=== PATIENT | female | born 1995 | race Caucasian/White ===

== ENCOUNTER 2023-05-21 22:49 | Emergency (ER) | payer OTHER, SELFPAY ==
[2023-05-21 23:08] VITALS: BP 129/92; PULSE 83; RESP 18; TEMP 37.3; O2SAT 97; BMI 29.5
--- NOTE | 2023-05-21 23:22 | ED.ABDPAIN1 ---
HPI - Abdominal Pain General Chief Complaint: Abdominal Pain Stated Complaint: Abdominal Pain Time Seen by Provider: 05/21/23 23:22 Source: patient Mode of arrival: walk-in History of Present Illness HPI narrative: Patient presents to emergency department complaining of abdominal pain. Patient states she has cramping and pain which she relates to a Crohn's flareup. She is 16 weeks gestation. She denies any contractions, vaginal bleeding, discharge. She denies any flank pain, hematuria, dysuria. She states she has nausea and vomiting. She has vomited 2 times in the last 24 hours. She has an ileostomy states that she feels like it has slowed down but she also has rectal output. She denies any melena, hematochezia. She states that she's not been able to eat much. She is taking Tylenol at home without any relief. She takes Imuran. 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 Patient denies any chest pain or shortness of breath. Denies any fall or trauma. She denies any fever, chills, cough or upper respiratory infection symptoms. Related Data Home Medications Medication Instructions Recorded Confirmed azathioprine 100 mg tablet 100 mg PO DAILY 05/21/23 05/21/23 Previous Rx's Medication Instructions Recorded hydrocodone 5 mg-acetaminophen 325 1 tab PO Q6H PRN pain 3 days #10 05/22/23 mg tablet tabs ondansetron HCl 4 mg tablet 4 mg PO Q6H PRN nausea and 05/22/23 vomiting #10 tabs prednisone 20 mg tablet 20 mg PO BID 3 days #6 tabs 05/22/23 Allergies Allergy/AdvReac Type Severity Reaction Status Date / Time No Known Drug Allergies Allergy Verified 05/21/23 23:12 Review of Systems ROS Status of ROS 10 or more systems reviewed and unremarkable except as noted in history and below PFS PFS Social History Smoking status: Never smoker Exam Narrative Exam Narrative: Nurses notes and vital signs reviewed and patient is not hypoxic. General: Nontoxic, Well-appearing and in no apparent distress. Skin: Warm, dry, no pallor noted. No Rash Head: Normocephalic, atraumatic. Neck: Supple, non-tender. Eye: Pupils are equal, round and EOMI. No scleral icterus. Ears, Nose, Mouth, and Throat: TM clear, no posterior oropharynx erythema or nasal mucosal hypertrophy, uvula is mid-line Oral mucosa is moist Cardiovascular: Regular Rate and Rhythm without murmur, gallop or rub. Respiratory: No accessory muscle use or respiratory distress. Lungs are clear to auscultation, no wheezing, rales or rhonchi Chest Wall: no tenderness Back: No midline thoracic or lumbar vertebral tenderness. No CVA tenderness Musculoskeletal: normal ROM, no calf or popliteal tenderness, no lower extremity edema/swelling GI: Abdomen is soft, non-distended. Normal bowel sounds. No masses appreciated.Soft stool noted in the right ileostomy, no hematochezia. mild luq tenderness to palpation. No rebound, guarding, or rigidity noted. Neurological: A&O x4. No cranial nerve dysfunction observed. No truncal ataxia. Moves all extremities. Sensation intact. Psychiatric: Cooperative and interactive. Normal mood and affect. Constitutional Vital Signs, click to edit/add: Last Vital Signs Temp 99.2 F 05/21/23 23:08 Pulse 83 05/21/23 23:08 Resp 18 05/21/23 23:08 BP 129/92 H 05/21/23 23:08 Pulse Ox 97 05/21/23 23:08 O2 Del Method Room Air 05/21/23 23:08 Course Vital Signs Vital signs: Vital Signs Temperature 99.2 F 05/21/23 23:08 Pulse Rate 83 05/21/23 23:08 Respiratory Rate 18 05/21/23 23:08 Blood Pressure 129/92 H 05/21/23 23:08 Pulse Oximetry 97 05/21/23 23:08 Oxygen Delivery Method Room Air 05/21/23 23:08 Temperature 99.2 F 05/21/23 23:08 Pulse Rate 83 05/21/23 23:08 Respiratory Rate 18 05/21/23 23:08 Blood Pressure 129/92 H 05/21/23 23:08 Pulse Oximetry 97 05/21/23 23:08 Oxygen Delivery Method Room Air 05/21/23 23:08 MDM - Abdominal Pain MDM Narrative Medical decision making narrative: She was given 1 L normal saline, morphine and Zofran. Labs studies were done.Patient was given 40 mg of prednisone is still having a lot of pain. Patient is nontoxic, she will be discharged home with a course of steroids and analgesics. Discussed with the patient the use of these medications during and she understands. Patient's abdomen is benign and nonsurgical. There is no signs of obstruction she is having stool output. At this time the patient is without objective evidence of an acute process requiring hospitalization or inpatient management. The patient has remained hemodynamically stable. No additional indication for emergent studies at this time. I answered all questions. Discussed discharge instructions including standard anticipatory guidance and what should prompt a return to the emergency department, including if they get worse are not getting better or develops any new or concerning symptoms. I've given them specific time frame in which to follow-up, and who to follow-up with. The patient demonstrates understanding. Patient is nontoxic and stable for discharge with outpatient follow-up. This note was created with the assistance of a speech recognition program. Although the intention is to generate documents that actually reflects the content of the visit, no guarantees can be provided that every mistake has been identified and corrected by editing. Differential Diagnosis Differential diagnosis: Likely abdominal pain, constipation and small bowel obstruction Lab Data Attestation: I reviewed the patient's lab results. Labs: Lab Results 05/21/23 05/21/23 Range/Units 23:16 23:31 WBC 5.0 (4.0-11.0) 10^3/uL RBC 4.43 (4.20-5.40) 10^6/uL Hgb 11.7 L (12.0-16.0) g/dL Hct 36.3 (36.0-48.0) % MCV 81.9 (81.0-99.0) fL MCH 26.4 L (26.7-34.0) pg MCHC 32.2 (29.9-35.2) g/dL RDW 15.6 H (11.0-15.0) % Plt Count 253 (150-450) 10^3/uL MPV 10.1 (9.5-13.5) fL Neut % (Auto) 67.5 (43.0-75.0) % Lymph % (Auto) 22.5 (20.5-60.0) % [place] % (Auto) 7.2 (1.7-12.0) % Eos % (Auto) 2.0 (0.9-7.0) % Baso % (Auto) 0.6 (0.2-2.0) % Neut # (Auto) 3.4 (1.4-6.5) 10^3/uL Lymph # (Auto) 1.1 L (1.2-3.8) 10^3/uL [place] # (Auto) 0.4 (0.3-0.8) 10^3/uL Eos # (Auto) 0.1 (0.0-0.7) 10^3/uL Baso # (Auto) 0.0 (0.0-0.1) 10^3/uL Abs Immat Gran (auto) 0.01 (0.00-0.03) 10^3/uL Imm/Tot Granulo (auto) 0.2 (0.0-0.5) % Sodium 137 (136-145) mmol/L Potassium 3.7 (3.5-5.1) mmol/L Chloride 105 (98-107) mmol/L Carbon Dioxide 22.3 (21.0-32.0) mmol/L Anion Gap 13.4 BUN 8.0 (7.0-18.0) mg/dL Creatinine 0.77 (0.55-1.02) mg/dL Est GFR ( Amer) >60 (>=60) Est GFR (Non-Af Amer) >60 (>=60) BUN/Creatinine Ratio 10.4 Glucose 90 (74-106) mg/dL Calcium 8.6 (8.5-10.1) mg/dL Total Bilirubin 0.3 (0.2-1.0) mg/dL AST 13 L (15-37) U/L ALT 21 (14-59) U/L Alkaline Phosphatase 80 (46-116) U/L Total Protein 8.3 H (6.4-8.2) g/dL Albumin 3.2 L (3.4-5.0) g/dL Globulin 5.1 g/dL Albumin/Globulin Ratio 0.6 Lipase 245.0 (73.0-393.0) U/L Urine Color Dk. yellow (YELLOW) Urine Clarity Clear (CLEAR) Urine pH 6.0 (5.0-9.0) Ur Specific [place] >=1.030 A (1.005-1.025) Urine Protein 30 A (NEG/TRACE) mg/dL Urine Glucose (UA) Negative (NEGATIVE) mg/dL Urine Ketones 15 A (NEGATIVE) mg/dL Urine Occult Blood Negative (NEGATIVE) Urine Nitrite Negative (NEGATIVE) Urine Bilirubin Small A (NEGATIVE) Urine Urobilinogen 0.2 (0.2-1.0) EU/dL Ur Leukocyte Esterase Negative (NEGATIVE) Urine RBC 2-5 A (0-2) #/HPF Urine WBC 5-10 A (NONE SEEN) #/HPF Ur Squamous Epith Cells Many A (NONE/RARE) #/LPF Urine Crystals None seen (None Seen) #/HPF Urine Bacteria Small A (NONE SEEN) #/HPF Urine Casts None seen (NONE SEEN) #/LPF Urine Mucus Small A (NONE SEEN) Ur Culture Indicated? Yes Discharge Plan Discharge Chief Complaint: Abdominal Pain Clinical Impression: Exacerbation of Crohn's disease, Dehydration Patient Disposition: Home, Self-Care Time of Disposition Decision: :27 Condition: Good Mode of Transportation: Private Vehicle Prescriptions / Home Meds: New prednisone 20 mg tablet 20 mg PO BID 3 Days Qty: 6 0RF hydrocodone-acetaminophen 5-325 mg tablet 1 tab PO Q6H PRN (Reason: pain) 3 Days Qty: 10 0RF ondansetron HCl 4 mg tablet 4 mg PO Q6H PRN (Reason: nausea and vomiting) Qty: 10 0RF No Action azathioprine 100 mg tablet 100 mg PO DAILY Instructions: Crohn Disease (ED) Stand Alone Forms: Portal Instructions Referrals: NABOR WAHL APRN [Physician] - 1 week
[2023-05-21] MEDS: 0.9 % SODIUM CHLORIDE 1,000 ML 999 ML IV (23:29)
[2023-05-21 23:38] LABS: Bilirubin Urine SMALL (NEGATIVE); Blood Urine NEGATIVE (NEGATIVE); Clarity Urine CLEAR (CLEAR); Color Urine DK. YELLOW (YELLOW); Glucose Urine UA NEGATIVE (NEGATIVE); Ketones Urine 15 mg/dL (NEGATIVE); Leukocyte Esterase Urine NEGATIVE (NEGATIVE); Nitrite Urine NEGATIVE (NEGATIVE); Protein Urine 30 mg/dL (NEG/TRACE); Specific Gravity Urine >=1.030 (1.005-1.025); Urobilinogen Urine 0.2 EU/dL (0.2-1.0)
[2023-05-21] MEDS: ONDANSETRON PF 4 MG/2 ML VIAL IV (23:41)
[2023-05-21] MEDS: MORPHINE SULFATE 4 MG/ML VIAL IV (23:41)
[2023-05-21 23:42] LABS: Urine Microscopic Indicated YES
[2023-05-21 23:43] LABS: Basophils Percent Auto 0.6 % (0.2-2.0); Eosinophils Absolute Auto 0.1 10^3/uL (0.0-0.7); Hematocrit 36.3 % (36.0-48.0); Hemoglobin 11.7 g/dL (12.0-16.0); Immature Granulocytes Abs Auto 0.01 10^3/uL (0.00-0.03); Immature Granulocytes Pct Auto 0.2 % (0.0-0.5); Lymphocytes Absolute Auto 1.1 10^3/uL (1.2-3.8); Lymphocytes Percent Auto 22.5 % (20.5-60.0); Mean Corpuscular HGB Conc 32.2 g/dL (29.9-35.2); Mean Corpuscular Hemoglobin 26.4 pg (26.7-34.0); Mean Corpuscular Volume 81.9 fL (81.0-99.0); Mean Platelet Volume 10.1 fL (9.5-13.5); Monocytes Absolute Auto 0.4 10^3/uL (0.3-0.8); Monocytes Percent Auto 7.2 % (1.7-12.0); Neutrophils Absolute Auto 3.4 10^3/uL (1.4-6.5); Neutrophils Percent Auto 67.5 % (43.0-75.0); Platelet Count 253 10^3/uL (150-450); Red Blood Count 4.43 10^6/uL (4.20-5.40); Red Cell Distribution Width 15.6 % (11.0-15.0)
[2023-05-21 23:50] LABS: Bacteria Urine SMALL #/HPF (NONE SEEN); Mucus Urine SMALL (NONE SEEN); Squamous Epithelial Cell Urine MANY #/LPF (NONE/RARE)
[2023-05-21 23:51] LABS: Cast Seen? NONE SEEN #/LPF (NONE SEEN); Crystals Seen? None Seen #/HPF (None Seen); Urine Culture Indicated YES
[2023-05-21 23:57] LABS: Alanine Aminotransferase 21 U/L (14-59); Albumin Globulin Ratio 0.6; Albumin Level 3.2 g/dL (3.4-5.0); Alkaline Phosphatase 80 U/L (46-116); Anion Gap 13.4; Aspartate Amino Transferase 13 U/L (15-37); BUN Creatinine Ratio 10.4; Bilirubin Total 0.3 mg/dL (0.2-1.0); Calcium 8.6 mg/dL (8.5-10.1); Carbon Dioxide 22.3 mmol/L (21.0-32.0); Chloride 105 mmol/L (98-107); Estimated GFR (African America >60 (>=60); Estimated GFR (Non-African Ame >60 (>=60); Globulin 5.1 g/dL; Glucose 90 mg/dL (74-106); Potassium 3.7 mmol/L (3.5-5.1); Sodium 137 mmol/L (136-145); Total Protein 8.3 g/dL (6.4-8.2)
[2023-05-22] MEDS: 0.9 % SODIUM CHLORIDE 1,000 ML 1000 ML IV (00:38)
[2023-05-22] MEDS: PREDNISONE 20 MG TABLET 40 MG PO (01:00)
[2023-05-22] MEDS: MORPHINE SULFATE 4 MG/ML VIAL IV (01:01)
[2023-05-22 01:44] VITALS: BP 132/74; PULSE 87; RESP 16; O2SAT 99
== END 2023-05-22 01:45 | disposition home or self-care (01) ==
PROVIDERS: Emergency Provider Emergency Medicine
DX: O99.612 Diseases of the digestive system complicating pregnancy, second trimester (principal); K50.90 Crohn's disease, unspecified, without complications; O26.892 Other specified pregnancy related conditions, second trimester; E86.0 Dehydration; Z3A.16 16 weeks gestation of pregnancy; Z93.2 Ileostomy status; Z79.899 Other long term (current) drug therapy
CPT/HCPCS: 36415; 80053; 81001; 83690; 85025; 87086; 96374; 96375; 96376; 99285

== ENCOUNTER 2024-03-26 12:55 | Emergency (ER) | payer OTHER, SELFPAY ==
[2024-03-26 12:59] VITALS: BP 120/90; PULSE 97; TEMP 36.6; O2SAT 98; BMI 28.1
--- NOTE | 2024-03-26 13:16 | ED_ITS ---
HPI HPI - General Adult General Chief complaint: Abdominal Pain Stated complaint: abd pain/palpitaions Time Seen by Provider: 03/26/24 13:09 Source: patient Mode of arrival: walk-in History of Present Illness HPI narrative: Patient is a 28-year-old female with a history of Crohn's, status post ileostomy who presents to the ER for increasing pain over the last 2 days. She sees a [facility] GI specialist since she required the ileostomy. She receives Entyvio infusions and takes daily prednisone. She states since she had her son several months ago, she has had an increase in pain with intermittent decreased output from the ileostomy. She is not concerned for , she is not currently breast-feeding. She has had no fevers or vomiting but reports nausea. She has left lower quadrant abdominal pain. No urinary symptoms. No medications taken prior to arrival for symptoms. She states that she was seen at [facility] 2 weeks ago for the same symptoms, she had CT scanning done at that time but states that the doctor did not give her any answers . She states she feels she may be dehydrated as when she stands up she feels her heart race Related Data Previous Rx's ?Medication ?Instructions ?Recorded ondansetron HCl 4 mg tablet 4 mg PO Q6H PRN nausea and 05/22/23 vomiting #10 tabs prednisone 20 mg tablet 20 mg PO BID 3 days #6 tabs 05/22/23 hyoscyamine sulfate 0.125 mg 0.125 mg PO Q6H PRN abdominal pain 03/26/24 tablet (Levsin) #12 tabs ondansetron 4 mg disintegrating 4 mg PO Q6H PRN nausea and 03/26/24 tablet vomiting #12 tabs oxycodone-acetaminophen 5 mg-325 1 tab PO Q6H PRN pain 4 days #15 03/26/24 mg tablet (Percocet) tabs prednisone 20 mg tablet 60 mg (3 x 20 mg) PO DAILY 3 days 03/26/24 #9 tabs Allergies Allergy/AdvReac Type Severity Reaction Status Date / Time No Known Drug Allergies Allergy Verified 05/21/23 23:12 Opioid HPI Opioid Management Most Recent Opioid Data: Last Pain Scale 5 03/26/24 14:45 Last MAR Pain Assessment 03/26/24 13:33 Review of Systems ROS Constitutional Denies: fever or chills Ears, nose, mouth, and throat Denies: throat pain or nasal congestion Respiratory Denies: shortness of breath Gastrointestinal Reports: abdominal pain and nausea; Denies: vomiting or diarrhea Integumentary/Breast Denies: rash Hematologic/Lymphatic Denies: easy bruising or easy bleeding Allergic/Immunologic Denies: hives [facility] Social History Smoking status: Never smoker Exam Narrative Exam Narrative: Gen.: Awake, alert, in no distress Head: Normocephalic, atraumatic ENT: Moist mucous membranes Respiratory: No respiratory distress, lungs clear bilaterally Cardio: Regular rate and rhythm Gastrointestinal: Abdomen is soft, nondistended and Diffusely tender to palpation in the left lower quadrant and left mid abdomen. Ileostomy noted to the left mid abdomen with brown output in the bag, no visible blood noted. Extremities: Moves extremities equally Psych: Normal mood and affect Neuro: No focal neuro deficit Skin: Warm, dry, intact Constitutional Vital Signs, click to edit/add: Last Vital Signs Temp 97.9 F 03/26/24 12:59 Pulse 73 03/26/24 14:45 Resp 14 03/26/24 14:45 BP 97/76 03/26/24 14:45 Pulse Ox 97 03/26/24 14:45 O2 Del Method Room Air 03/26/24 14:45 Course Vital Signs Vital signs: Vital Signs Temperature 97.9 F 03/26/24 12:59 Pulse Rate 97 H 03/26/24 12:59 Respiratory Rate 16 03/26/24 12:59 Blood Pressure 120/90 03/26/24 12:59 Pulse Oximetry 98 03/26/24 12:59 Oxygen Delivery Method Room Air 03/26/24 12:59 Temperature 97.9 F 03/26/24 12:59 Pulse Rate 73 03/26/24 14:45 Respiratory Rate 14 03/26/24 14:45 Blood Pressure 97/76 03/26/24 14:45 Pulse Oximetry 97 03/26/24 14:45 Oxygen Delivery Method Room Air 03/26/24 14:45 Medical Decision Making MDM Narrative Medical decision making narrative: CT scan was [facility] from [facility] that was performed on 03/08/2024. CT report reviewed showing that the patient had trace pleural effusion and minimally enlarging right lower quadrant ascites otherwise no significant change from 11/24/2023. Patient has an upcoming appointment with her GI specialist. Pain is controlled with Dilaudid, Zofran and she was given IV fluids in the ER. Lab studies are unremarkable although inflammatory markers are elevated consistent with Crohn's disease. She is resting comfortably, abdomen is soft and benign on reevaluation. She is comfortable with discharge home, she will be placed on pain medication, prednisone burst, Levsin, Zofran. Follow-up with GI specialist and return to the ER if symptoms change or worsen. SUPERVISED APC VISIT, PHYSICIAN ATTESTATION: Based on the medical record the care appears appropriate. ? Medical Records Medical records reviewed: Yes I reviewed the patient's medical records Lab Data Lab results reviewed: Yes I reviewed the patient's lab results Labs: Lab Results 03/26/24 03/26/24 Range/Units 13:10 13:32 WBC 5.4 (4.0-11.0) 10^3/uL RBC 4.75 (4.20-5.40) 10^6/uL Hgb 12.8 (12.0-16.0) g/dL Hct 41.1 (36.0-48.0) % MCV 86.5 (81.0-99.0) fL MCH 26.9 (26.7-34.0) pg MCHC 31.1 (29.9-35.2) g/dL RDW 15.7 H (11.0-15.0) % Plt Count 320 (150-450) 10^3/uL MPV 9.7 (9.5-13.5) fL Neut % (Auto) 68.9 (43.0-75.0) % Lymph % (Auto) 18.2 L (20.5-60.0) % [place] % (Auto) 10.8 (1.7-12.0) % Eos % (Auto) 1.7 (0.9-7.0) % Baso % (Auto) 0.2 (0.2-2.0) % Neut # (Auto) 3.7 (1.4-6.5) 10^3/uL Lymph # (Auto) 1.0 L (1.2-3.8) 10^3/uL [place] # (Auto) 0.6 (0.3-0.8) 10^3/uL Eos # (Auto) 0.1 (0.0-0.7) 10^3/uL Baso # (Auto) 0.0 (0.0-0.1) 10^3/uL Abs Immat Gran (auto) 0.01 (0.00-0.03) 10^3/uL Imm/Tot Granulo (auto) 0.2 (0.0-0.5) % ESR >130 H (<=20) mm/hr Sodium 141 (136-145) mmol/L Potassium 3.5 (3.5-5.1) mmol/L Chloride 101 (98-107) mmol/L Carbon Dioxide 30.1 (21.0-32.0) mmol/L Anion Gap 13.4 BUN 12.0 (7.0-18.0) mg/dL Creatinine 0.99 (0.55-1.02) mg/dL Est GFR ( Amer) >60 (>=60) Est GFR (Non-Af Amer) >60 (>=60) BUN/Creatinine Ratio 12.1 Glucose 97 (74-106) mg/dL Lactate 1.6 (0.4-2.0) mmol/L Calcium 9.2 (8.5-10.1) mg/dL Total Bilirubin 0.3 (0.2-1.0) mg/dL AST 11 L (15-37) U/L ALT 23 (14-59) U/L Alkaline Phosphatase 113 (46-116) U/L C-Reactive Protein 6.14 H (<=0.50) mg/dL Total Protein 8.1 (6.4-8.2) g/dL Albumin 3.2 L (3.4-5.0) g/dL Globulin 4.9 g/dL Albumin/Globulin Ratio 0.7 Lipase 49.0 (16.0-77.0) U/L Serum HCG, Qual Negative (NEGATIVE) Discharge Plan Discharge Stand Alone Forms: Portal Instructions Chief Complaint: Abdominal Pain Clinical Impression: Exacerbation of Crohn's disease, Abdominal pain Patient Disposition: Home, Self-Care Time of Disposition Decision: 14:52 Condition: Good Prescriptions / Home Meds: New oxycodone-acetaminophen [Percocet] 5-325 mg tablet 1 tab PO Q6H PRN (Reason: pain) 4 Days Qty: 15 0RF Rx Instructions: DX: R10.9 hyoscyamine sulfate [Levsin] 0.125 mg tablet 0.125 mg PO Q6H PRN (Reason: abdominal pain) Qty: 12 0RF ondansetron 4 mg tablet,disintegrating 4 mg PO Q6H PRN (Reason: nausea and vomiting) Qty: 12 0RF prednisone 20 mg tablet 60 mg PO DAILY 3 Days Qty: 9 0RF No Action prednisone 20 mg tablet 20 mg PO BID 3 Days Qty: 6 0RF ondansetron HCl 4 mg tablet 4 mg PO Q6H PRN (Reason: nausea and vomiting) Qty: 10 0RF Print Language: Ethiopian Instructions: Crohn Disease (ED), Abdominal Pain (ED) Referrals: Physician,Non-Staff, MD [Primary Care Provider] - 1 week
[2024-03-26 13:22] LABS: Basophils Percent Auto 0.2 % (0.2-2.0); Eosinophils Absolute Auto 0.1 10^3/uL (0.0-0.7); Eosinophils Percent Auto 1.7 % (0.9-7.0); Hematocrit 41.1 % (36.0-48.0); Hemoglobin 12.8 g/dL (12.0-16.0); Immature Granulocytes Abs Auto 0.01 10^3/uL (0.00-0.03); Immature Granulocytes Pct Auto 0.2 % (0.0-0.5); Lymphocytes Percent Auto 18.2 % (20.5-60.0); Mean Corpuscular HGB Conc 31.1 g/dL (29.9-35.2); Mean Corpuscular Hemoglobin 26.9 pg (26.7-34.0); Mean Corpuscular Volume 86.5 fL (81.0-99.0); Mean Platelet Volume 9.7 fL (9.5-13.5); Monocytes Absolute Auto 0.6 10^3/uL (0.3-0.8); Monocytes Percent Auto 10.8 % (1.7-12.0); Neutrophils Absolute Auto 3.7 10^3/uL (1.4-6.5); Neutrophils Percent Auto 68.9 % (43.0-75.0); Platelet Count 320 10^3/uL (150-450); Red Blood Count 4.75 10^6/uL (4.20-5.40); Red Cell Distribution Width 15.7 % (11.0-15.0); White Blood Count 5.4 10^3/uL (4.0-11.0)
[2024-03-26] MEDS: 0.9 % SODIUM CHLORIDE 1,000 ML 999 ML IV (13:30)
[2024-03-26] MEDS: ONDANSETRON PF 4 MG/2 ML VIAL IV (13:32)
[2024-03-26] MEDS: HYOSCYAMINE SULFATE 0.125 MG TAB.SUBL SL (13:33)
[2024-03-26] MEDS: HYDROMORPHONE HCL 1 MG/ML CARTRIDGE IVP (13:33)
[2024-03-26 13:55] LABS: Alanine Aminotransferase 23 U/L (14-59); Albumin Globulin Ratio 0.7; Albumin Level 3.2 g/dL (3.4-5.0); Alkaline Phosphatase 113 U/L (46-116); Anion Gap 13.4; Aspartate Amino Transferase 11 U/L (15-37); BUN Creatinine Ratio 12.1; Bilirubin Total 0.3 mg/dL (0.2-1.0); Calcium 9.2 mg/dL (8.5-10.1); Carbon Dioxide 30.1 mmol/L (21.0-32.0); Chloride 101 mmol/L (98-107); Estimated GFR (African America >60 (>=60); Estimated GFR (Non-African Ame >60 (>=60); Globulin 4.9 g/dL; Glucose 97 mg/dL (74-106); Potassium 3.5 mmol/L (3.5-5.1); Sodium 141 mmol/L (136-145); Total Protein 8.1 g/dL (6.4-8.2)
[2024-03-26 13:56] LABS: HCG Qualitative NEGATIVE (NEGATIVE); Internal Control Within Normal Limits
[2024-03-26 13:57] LABS: Lactate/Lactic Acid 1.6 mmol/L (0.4-2.0)
[2024-03-26 14:17] LABS: C Reactive Protein 6.14 mg/dL (<=0.50)
[2024-03-26 14:28] LABS: Erythrocyte Sedimentation Rate >130 mm/hr (<=20)
[2024-03-26 14:45] VITALS: BP 97/76; PULSE 73; O2SAT 97
[2024-03-26 15:05] VITALS: BP 97/76; PULSE 70; O2SAT 98
== END 2024-03-26 15:07 | disposition home or self-care (01) ==
PROVIDERS: Physician Assistant; Emergency Provider Emergency Medicine Emergency Medical Services
DX: R10.9 Unspecified abdominal pain (principal); K50.90 Crohn's disease, unspecified, without complications; Z93.2 Ileostomy status
CPT/HCPCS: 36415; 80053; 83605; 83690; 84703; 85025; 85652; 86140; 96374; 96375; 99285; J1170; J2405

== ENCOUNTER 2024-05-12 12:35 | Emergency (ER) | payer OTHER, SELFPAY ==
[2024-05-12 12:39] VITALS: BP 114/86; PULSE 87; TEMP 36.8; O2SAT 99; BMI 29.5
--- NOTE | 2024-05-12 13:06 | CT_ITS ---
The [address] [address] Patient Name: DELL MARTÍNEZ MRN: [id number] date: 1995 Sex: F Assigned Patient Location: ER Current Patient Location: Accession/Order Number: [id number] Exam Date: 05/12/2024 14:15 Report Date: 05/12/2024 15:14 At the request of: ANNA WESTFALL Procedure: CT abdomen pelvis w con EXAM: CT scan of the abdomen and pelvis using 100 mL of IV iodinated contrast. Dose reduction technique used: Automated exposure control and/or adjustment of the mA and/or kV according to patient size and/or use of iterative reconstruction technique. REASON FOR EXAM: pain, loose stools COMPARISON: CT scan dated 12/24/2022 FINDINGS: Loculated perianal fluid collection extending into the right ischiorectal fat and perianal fat along the subcutaneous gluteal cleft, this measures approximately 4.6 x 2.5 x 0.8 cm in maximal dimensions. Adjacent to this is a perianal high attenuation foreign body, possibly a seton. Defect through the lowest part of the rectum on the right posterior wall at approximately the 7-8 o'clock position. Diffuse colonic wall thickening. Wall thickening of the distal ileum. Right lower abdominal ileostomy. Small splenic cyst or hemangioma. Normal appendix. No free fluid in the abdomen or pelvis. No free intraperitoneal air. No dilated loops of small bowel or colon. No hydronephrosis or obstructing renal or ureteral calculi. Liver, pancreas, spleen, bilateral kidneys, and bilateral adrenal glands are otherwise unremarkable. No lymphadenopathy in the abdomen or pelvis. Remainder unremarkable. CT/CT abdomen pelvis w con IMPRESSION: 1. Findings compatible with enterocolitis in a pattern compatible with Crohn's enterocolitis. 2. 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 Electronically authenticated by: LAURA GEE Date: 05/12/2024 15:14
--- NOTE | 2024-05-12 13:08 | ED.ABDPAIN1 ---
HPI - Abdominal Pain General Chief Complaint: Abdominal Pain Stated Complaint: ABDOMINAL PAIN Time Seen by Provider: 05/12/24 12:55 Source: patient Mode of arrival: Wheelchair Limitations: no limitations History of Present Illness HPI narrative: 28 year old female presents to the ED for abd pain, loose stools. Onset was a few days ago. She has hx crohn's disease. Reports loose stools through her rectum and ileostomy. Also states she had a in Oct, 2023. She noticed in March that areas of her incision had become open; states it is getting worse. Denies fever, chills. Reports dizziness, feeling dehydrated. Denies emesis, urinary sx. Denies chance of . Related Data Previous Rx's ?Medication ?Instructions ?Recorded ondansetron HCl 4 mg tablet 4 mg PO Q6H PRN nausea and 05/22/23 vomiting #10 tabs prednisone 20 mg tablet 20 mg PO BID 3 days #6 tabs 05/22/23 hyoscyamine sulfate 0.125 mg 0.125 mg PO Q6H PRN abdominal pain 03/26/24 tablet (Levsin) #12 tabs ondansetron 4 mg disintegrating 4 mg PO Q6H PRN nausea and 03/26/24 tablet vomiting #12 tabs oxycodone-acetaminophen 5 mg-325 1 tab PO Q6H PRN pain 4 days #15 03/26/24 mg tablet (Percocet) tabs prednisone 20 mg tablet 60 mg (3 x 20 mg) PO DAILY 3 days 03/26/24 #9 tabs ciprofloxacin HCl 500 mg tablet 500 mg PO Q12H #20 tabs 05/12/24 metronidazole 500 mg tablet 500 mg PO TID 10 days #30 tabs 05/12/24 Allergies Allergy/AdvReac Type Severity Reaction Status Date / Time No Known Drug Allergies Allergy Verified 05/21/23 23:12 Review of Systems ROS Constitutional Reports: fatigue; Denies: fever or chills Ears, nose, mouth, and throat Denies: throat pain Cardiovascular Denies: chest pain Respiratory Denies: shortness of breath or cough Gastrointestinal Reports: abdominal pain and diarrhea; Denies: nausea or vomiting Genitourinary Denies: painful urination Musculoskeletal Denies: back pain or neck pain Integumentary/Breast Reports: other (Abd wound) Neurological Reports: dizziness; Denies: headache PFSH PFSH Social History Smoking status: Never smoker Exam Constitutional Vital Signs, click to edit/add: Last Vital Signs Temp 98.2 F 05/12/24 12:39 Pulse 87 05/12/24 12:39 Resp 18 05/12/24 12:39 BP 114/86 05/12/24 12:39 Pulse Ox 99 05/12/24 12:39 Common normals: no apparent distress and oriented x3 General appearance: cooperative HENMT Mouth: oral and palatal mucosa normal and lip normal Eye Common normals: conjunctivae normal and no scleral icterus Neck & C-Spine Common normals: supple Chest Chest: symmetrical chest wall rise Respiratory Common normals: normal respiratory effort Effort & inspection: able to speak in complete sentences Cardio Common normals: regular rate and regular rhythm GI Common normals: soft to palpation Palpation: tender (Generalized) Other: Ileostomy to right abdomen. Liquid stool noted in bag. site noted. Three open areas noted to incision; areas approx 5 mm in length. No active drainage or bleeding at this time. Neuro Common normals: oriented x3 Sensorium/orientation: awake and alert Speech: speech normal Course Vital Signs Vital signs: Vital Signs Temperature 98.2 F 05/12/24 12:39 Pulse Rate 87 05/12/24 12:39 Respiratory Rate 18 05/12/24 12:39 Blood Pressure 114/86 05/12/24 12:39 Pulse Oximetry 99 05/12/24 12:39 Temperature 98.2 F 05/12/24 12:39 Pulse Rate 87 05/12/24 12:39 Respiratory Rate 18 05/12/24 12:39 Blood Pressure 114/86 05/12/24 12:39 Pulse Oximetry 99 05/12/24 12:39 MDM - Abdominal Pain MDM Narrative Medical decision making narrative: WBC count was 11.4. Sodium was 130, potassium 3.1. CT scan showed: findings compatible with enterocolitis in a pattern compatible with Crohn's enterocolitis; right-sided perianal/ischiorectal abscess with a probable fistula extending from near the anorectal junction posteriorly on the right. Findings were discussed with the patient; she was given a copy of the CT report. Admission to the hospital was strongly recommended to the patient. Transfer to [facility] was discussed; it is where she typically receives her care. The patient declined transfer and admission. She is aware of the risk of worsening condition, sepsis, . She declined to stay. She will be signing out against medical advise. Prescriptions were provided for Cipro and Flagyl. She was given Cipro, Flagyl, and potassium here along with IV fluids and IV Pepcid. 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 She is aware that she may return for care at anytime. She was advised to return if her condition worsens. She left A with her significant other. Differential Diagnosis Differential diagnosis: Likely abdominal pain, gastroenteritis, small bowel obstruction and other (Exacerbation of crohn's) Medical Records Attestation: I reviewed the patient's medical records. Lab Data Attestation: I reviewed the patient's lab results. Labs: Lab Results 05/12/24 05/12/24 Range/Units 12:49 14:07 WBC 11.4 H (4.0-11.0) 10^3/uL RBC 4.98 (4.20-5.40) 10^6/uL Hgb 12.9 (12.0-16.0) g/dL Hct 40.7 (36.0-48.0) % MCV 81.7 (81.0-99.0) fL MCH 25.9 L (26.7-34.0) pg MCHC 31.7 (29.9-35.2) g/dL RDW 15.4 H (11.0-15.0) % Plt Count 492 H (150-450) 10^3/uL MPV 9.7 (9.5-13.5) fL Seg Neuts % (Manual) 70.0 (43.0-75.0) Band Neutrophils % 2.0 (0-5) % Lymphocytes % (Manual) 13.0 L (20.5-60.0) % Monocytes % (Manual) 14.0 H (1.7-12.0) % Eosinophils % (Manual) 1.0 (0.9-7.0) % Basophils % (Manual) 0.0 L (0.2-2.0) % Neutrophils # (Manual) 7.98 H (1.4-6.5) 10^3/uL Band Neutrophils # 0.2 (0.0-0.3) 10^3/uL Lymphocytes # (Manual) 1.48 (1.20-3.80) 10^3/uL Monocytes # (Manual) 1.59 H (0.30-0.80) 10^3/uL Eosinophils # (Manual) 0.11 (0.00-0.70) 10^3/uL Basophils # (Manual) 0.00 (0.00-0.10) 10^3/uL Anisocytosis 1+ Microcytosis 1+ Sodium 130 L (136-145) mmol/L Potassium 3.1 L (3.5-5.1) mmol/L Chloride 90 L (98-107) mmol/L Carbon Dioxide 30.9 (21.0-32.0) mmol/L Anion Gap 12.2 BUN 5.0 L (7.0-18.0) mg/dL Creatinine 1.07 H (0.55-1.02) mg/dL Est GFR ( Amer) >60 (>=60) Est GFR (Non-Af Amer) >60 (>=60) BUN/Creatinine Ratio 4.7 Glucose 100 (74-106) mg/dL Calcium 8.9 (8.5-10.1) mg/dL Total Bilirubin 0.7 (0.2-1.0) mg/dL AST 15 (15-37) U/L ALT 17 (14-59) U/L Alkaline Phosphatase 111 (46-116) U/L Total Protein 7.5 (6.4-8.2) g/dL Albumin 2.6 L (3.4-5.0) g/dL Globulin 4.9 g/dL Albumin/Globulin Ratio 0.5 Lipase 20.0 (16.0-77.0) U/L Urine Color Lt. yellow (YELLOW) Urine Clarity Clear (CLEAR) Urine pH 6.5 (5.0-9.0) Ur Specific [place] 1.010 (1.005-1.025) Urine Protein Trace (NEG/TRACE) mg/dL Urine Glucose (UA) Negative (NEGATIVE) mg/dL Urine Ketones Negative (NEGATIVE) mg/dL Urine Occult Blood Trace-i (NEGATIVE) Urine Nitrite Negative (NEGATIVE) Urine Bilirubin Negative (NEGATIVE) Urine Urobilinogen 0.2 (0.2-1.0) EU/dL Ur Leukocyte Esterase Moderate A (NEGATIVE) Urine RBC 2-5 A (0-2) #/HPF Urine WBC 10-20 A (NONE SEEN) #/HPF Ur Squamous Epith Cells Few A (NONE/RARE) #/LPF Urine Crystals None seen (None Seen) #/HPF Urine Bacteria Small A (NONE SEEN) #/HPF Urine Casts None seen (NONE SEEN) #/LPF Urine Mucus Trace A (NONE SEEN) Ur Culture Indicated? Yes Urine HCG, Qual Negative (NEGATIVE) Imaging Data CT scan - abdomen: Attestation: I have reviewed the pertinent imaging results. Radiologist's impression: ITS Impressions Abdomen/Pelvis CT 05/12/24 13:06 IMPRESSION: 1. Findings compatible with enterocolitis in a pattern compatible with Crohn's enterocolitis. 2. 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 Electronically authenticated by: LAURA GEE Date: 05/12/2024 15:14 Discharge Plan Discharge Stand Alone Forms: Work/School Release, Portal Instructions Chief Complaint: Abdominal Pain Clinical Impression: Abscess, perianal, Exacerbation of Crohn's disease, Anorectal fistula, Left against medical advice, Hypokalemia, Hyponatremia Patient Disposition: Left Against Medical Advice Time of Disposition Decision: 15:43 Condition: Good Mode of Transportation: Private Vehicle Prescriptions / Home Meds: New ciprofloxacin HCl 500 mg tablet 500 mg PO Q12H Qty: 20 0RF metronidazole 500 mg tablet 500 mg PO TID 10 Days Qty: 30 0RF No Action prednisone 20 mg tablet 20 mg PO BID 3 Days Qty: 6 0RF ondansetron HCl 4 mg tablet 4 mg PO Q6H PRN (Reason: nausea and vomiting) Qty: 10 0RF oxycodone-acetaminophen [Percocet] 5-325 mg tablet 1 tab PO Q6H PRN (Reason: pain) 4 Days Qty: 15 0RF Rx Instructions: DX: R10.9 hyoscyamine sulfate [Levsin] 0.125 mg tablet 0.125 mg PO Q6H PRN (Reason: abdominal pain) Qty: 12 0RF ondansetron 4 mg tablet,disintegrating 4 mg PO Q6H PRN (Reason: nausea and vomiting) Qty: 12 0RF prednisone 20 mg tablet 60 mg PO DAILY 3 Days Qty: 9 0RF Print Language: Yakut Instructions: Hyponatremia (ED), Hypokalemia (ED), Anorectal Abscess and Anal Fistula (ED), Against Medical Advice (ED), Rectal Abscess (ED) Additional Instructions: Return to the ER at anytime if you change your mind regarding admission to the hospital for further evaluation and treatment. Return to the ER if your condition worsens Follow up with your GI specialist and surgeon. Referrals: Physician,Non-Staff, MD [Primary Care Provider] - 1 week Discharge Date/Time: 05/12/24 16:09
[2024-05-12 13:14] LABS: Bilirubin Urine NEGATIVE (NEGATIVE); Blood Urine TRACE-I (NEGATIVE); Clarity Urine CLEAR (CLEAR); Color Urine LT. YELLOW (YELLOW); Glucose Urine UA NEGATIVE (NEGATIVE); Ketones Urine NEGATIVE (NEGATIVE); Leukocyte Esterase Urine MODERATE (NEGATIVE); Nitrite Urine NEGATIVE (NEGATIVE); Protein Urine TRACE mg/dL (NEG/TRACE); Urine Microscopic Indicated YES; Urobilinogen Urine 0.2 EU/dL (0.2-1.0); pH Urine 6.5 (5.0-9.0)
[2024-05-12 13:15] LABS: HCG Qualitative Urine* NEGATIVE (NEGATIVE); Internal Control Within Normal Limits
[2024-05-12] MEDS: 0.9 % SODIUM CHLORIDE 1,000 ML 1000 ML IV (13:34)
[2024-05-12 13:37] LABS: Bacteria Urine SMALL #/HPF (NONE SEEN); Cast Seen? NONE SEEN #/LPF (NONE SEEN); Crystals Seen? None Seen #/HPF (None Seen); Mucus Urine TRACE (NONE SEEN); Squamous Epithelial Cell Urine FEW #/LPF (NONE/RARE); Urine Culture Indicated YES
[2024-05-12] MEDS: FAMOTIDINE/PF 20 MG/2 ML VIAL IV (13:42)
[2024-05-12 14:14] LABS: Hematocrit 40.7 % (36.0-48.0); Hemoglobin 12.9 g/dL (12.0-16.0); Mean Corpuscular HGB Conc 31.7 g/dL (29.9-35.2); Mean Corpuscular Hemoglobin 25.9 pg (26.7-34.0); Mean Corpuscular Volume 81.7 fL (81.0-99.0); Mean Platelet Volume 9.7 fL (9.5-13.5); Platelet Count 492 10^3/uL (150-450); Red Blood Count 4.98 10^6/uL (4.20-5.40); Red Cell Distribution Width 15.4 % (11.0-15.0); White Blood Count 11.4 10^3/uL (4.0-11.0)
[2024-05-12 14:27] LABS: Alanine Aminotransferase 17 U/L (14-59); Albumin Globulin Ratio 0.5; Albumin Level 2.6 g/dL (3.4-5.0); Alkaline Phosphatase 111 U/L (46-116); Anion Gap 12.2; Aspartate Amino Transferase 15 U/L (15-37); BUN Creatinine Ratio 4.7; Bilirubin Total 0.7 mg/dL (0.2-1.0); Calcium 8.9 mg/dL (8.5-10.1); Carbon Dioxide 30.9 mmol/L (21.0-32.0); Chloride 90 mmol/L (98-107); Estimated GFR (African America >60 (>=60); Estimated GFR (Non-African Ame >60 (>=60); Globulin 4.9 g/dL; Glucose 100 mg/dL (74-106); Potassium 3.1 mmol/L (3.5-5.1); Sodium 130 mmol/L (136-145); Total Protein 7.5 g/dL (6.4-8.2)
[2024-05-12 14:34] LABS: Anisocytosis 1+; Band Neutrophils Absolute 0.2 10^3/uL (0.0-0.3); Eosinophils Absolute Manual 0.11 10^3/uL (0.00-0.70); Lymphocytes Absolute Manual 1.48 10^3/uL (1.20-3.80); Microcytosis 1+; Monocytes Absolute Manual 1.59 10^3/uL (0.30-0.80); Segmented Neut Absolute Manual 7.98 10^3/uL (1.4-6.5)
[2024-05-12] MEDS: POTASSIUM CHLORIDE 10 MEQ ER TABLET 40 MEQ PO (15:56)
[2024-05-12] MEDS: METRONIDAZOLE 250 MG TABLET 500 MG PO (15:56)
[2024-05-12] MEDS: CIPROFLOXACIN HCL 500 MG TABLET PO (15:57)
== END 2024-05-12 16:09 | disposition left against medical advice (07) ==
PROVIDERS: Nurse Practitioner Family; Emergency Provider Emergency Medicine
DX: R10.9 Unspecified abdominal pain (principal); Z93.2 Ileostomy status; Z53.29 Procedure and treatment not carried out because of patient's decision for other reasons; R42 Dizziness and giddiness
CPT/HCPCS: 36415; 74177; 80053; 81001; 83690; 84703; 85007; 85027; 87086; 96374; 99285; Q9967

== ENCOUNTER 2024-05-18 13:44 | Emergency (ER) | payer OTHER, SELFPAY ==
[2024-05-18 13:48] VITALS: BP 103/77; PULSE 126; TEMP 37; O2SAT 97; BMI 26.6
--- NOTE | 2024-05-18 14:02 | ED_ITS ---
<Statement entered by Veronica Curtis MD - 05/18/24 18:28> This documentation has been reviewed and approved. HPI - Abdominal Pain General Chief Complaint: Abdominal Pain Stated Complaint: ABDOMINAL PAIN Time Seen by Provider: 05/18/24 13:46 Source: patient Mode of arrival: walk-in Limitations: no limitations History of Present Illness HPI narrative: 28 year old female presents to the ED for increased abd pain. Onset was 2 weeks ago. Reports increased rectal discomfort as well. She was evaluated here 05/12/24 for the same. She was diagnosed with a perirectal abscess; she left AMA. She has been taking the Cipro and Flagyl she was prescribed as directed. Denies fever, chills. Denies chance of . She has an ileostomy that was placed in 2017. She has a drain in place s/p perianal abscess. She has an appointment in May with her GI physician. Related Data Home Medications ?Medication ?Instructions ?Recorded ?Confirmed buprenorphine 8 mg-naloxone 2 mg 1 film sublingual TID 05/18/24 05/18/24 sublingual film buspirone 10 mg tablet 10 mg PO TID 05/18/24 05/18/24 prednisone 20 mg tablet 20 mg PO DAILY 05/18/24 05/18/24 Previous Rx's ?Medication ?Instructions ?Recorded ondansetron HCl 4 mg tablet 4 mg PO Q6H PRN nausea and 05/22/23 vomiting #10 tabs ciprofloxacin HCl 500 mg tablet 500 mg PO Q12H #20 tabs 05/12/24 metronidazole 500 mg tablet 500 mg PO TID 10 days #30 tabs 05/12/24 tramadol 50 mg tablet 50 mg PO Q8H PRN pain #9 tabs 05/18/24 Allergies Allergy/AdvReac Type Severity Reaction Status Date / Time No Known Drug Allergies Allergy Verified 05/21/23 23:12 Review of Systems ROS Constitutional Denies: fever or chills Cardiovascular Denies: chest pain Respiratory Denies: shortness of breath Gastrointestinal Reports: abdominal pain and rectal pain; Denies: nausea or vomiting Genitourinary Denies: painful urination, urinary frequency or urinary urgency Musculoskeletal Denies: back pain Integumentary/Breast Denies: rash Neurological Denies: headache PFSH PFSH Medical History (Updated 05/18/24 @ 17:14 by Katie Kurtz) Ileostomy in place ?Z93.2 - Ileostomy status (ICD-10) Social History Smoking status: Never smoker Exam Constitutional Vital Signs, click to edit/add: Last Vital Signs Temp 98.6 F 05/18/24 13:48 Pulse 102 H 05/18/24 16:39 Resp 16 05/18/24 16:39 BP 93/63 05/18/24 16:39 Pulse Ox 98 05/18/24 16:39 O2 Del Method Room Air 05/18/24 16:39 HENMT Mouth: oral and palatal mucosa normal and lip normal Eye Common normals: conjunctivae normal and no scleral icterus Neck & C-Spine Common normals: supple Chest Chest: symmetrical chest wall rise Respiratory Common normals: normal respiratory effort and clear to auscultation bilaterally Effort & inspection: able to speak in complete sentences and symmetric chest movement Cardio Common normals: regular rate Rate: tachycardic GI Common normals: Normal to inspection, nondistended, normoactive bowel sounds present and soft to palpation Palpation: tender Details: LLQ, RLQ, LUQ and RUQ Other: Ileostomy present to right abdomen. Neuro Common normals: oriented x3 and moves all extremities Sensorium/orientation: awake and alert Speech: speech normal Course Vital Signs Vital signs: Vital Signs Temperature 98.6 F 05/18/24 13:48 Pulse Rate 126 H 05/18/24 13:48 Respiratory Rate 24 H 05/18/24 13:48 Blood Pressure 103/77 05/18/24 13:48 Pulse Oximetry 97 05/18/24 13:48 Oxygen Delivery Method Room Air 05/18/24 13:48 Temperature 98.6 F 05/18/24 13:48 Pulse Rate 102 H 05/18/24 16:39 Respiratory Rate 16 05/18/24 16:39 Blood Pressure 93/63 05/18/24 16:39 Pulse Oximetry 98 05/18/24 16:39 Oxygen Delivery Method Room Air 05/18/24 16:39 MDM - Abdominal Pain MDM Narrative Medical decision making narrative: WBC count improved from the previous visit. CT scan showed: Slight reduction in perianal abscess with percutaneous drainage catheter. Moderate inflammatory changes of the colon with right midabdominal diverting colostomy consistent with known history of colitis. Findings were discussed with the patient. She was given medication with improvement. OARRS was reviewed. She is on suboxone. She requested something additional for pain for home. She was encouraged to follow up with her surgeon and GI physician; call tomorrow morning for follow up. Return precautions were discussed. Medical Records Attestation: I reviewed the patient's medical records. Lab Data Attestation: I reviewed the patient's lab results. Labs: Lab Results 05/18/24 05/18/24 Range/Units 14:22 16:20 WBC 8.3 (4.0-11.0) 10^3/uL RBC 4.52 (4.20-5.40) 10^6/uL Hgb 11.8 L (12.0-16.0) g/dL Hct 38.5 (36.0-48.0) % MCV 85.2 (81.0-99.0) fL MCH 26.1 L (26.7-34.0) pg MCHC 30.6 (29.9-35.2) g/dL RDW 16.0 H (11.0-15.0) % Plt Count 506 H (150-450) 10^3/uL MPV 9.7 (9.5-13.5) fL Neut % (Auto) 75.5 H (43.0-75.0) % Lymph % (Auto) 14.5 L (20.5-60.0) % [place] % (Auto) 6.8 (1.7-12.0) % Eos % (Auto) 1.7 (0.9-7.0) % Baso % (Auto) 0.4 (0.2-2.0) % Neut # (Auto) 6.3 (1.4-6.5) 10^3/uL Lymph # (Auto) 1.2 (1.2-3.8) 10^3/uL [place] # (Auto) 0.6 (0.3-0.8) 10^3/uL Eos # (Auto) 0.1 (0.0-0.7) 10^3/uL Baso # (Auto) 0.0 (0.0-0.1) 10^3/uL Abs Immat Gran (auto) 0.09 H (0.00-0.03) 10^3/uL Imm/Tot Granulo (auto) 1.1 H (0.0-0.5) % Sodium 137 (136-145) mmol/L Potassium 3.3 L (3.5-5.1) mmol/L Chloride 99 (98-107) mmol/L Carbon Dioxide 28.7 (21.0-32.0) mmol/L Anion Gap 12.6 BUN 3.0 L (7.0-18.0) mg/dL Creatinine 0.89 (0.55-1.02) mg/dL Est GFR ( Amer) >60 (>=60) Est GFR (Non-Af Amer) >60 (>=60) BUN/Creatinine Ratio 3.4 Glucose 123 H (74-106) mg/dL Calcium 9.3 (8.5-10.1) mg/dL Total Bilirubin 0.3 (0.2-1.0) mg/dL AST 19 (15-37) U/L ALT 19 (14-59) U/L Alkaline Phosphatase 79 (46-116) U/L Total Protein 7.6 (6.4-8.2) g/dL Albumin 2.6 L (3.4-5.0) g/dL Globulin 5.0 g/dL Albumin/Globulin Ratio 0.5 Lipase 65.0 (16.0-77.0) U/L Urine Color Lt. yellow (YELLOW) Urine Clarity Clear (CLEAR) Urine pH 7.5 (5.0-9.0) Ur Specific [place] <=1.005 A (1.005-1.025) Urine Protein Negative (NEG/TRACE) mg/dL Urine Glucose (UA) Negative (NEGATIVE) mg/dL Urine Ketones Negative (NEGATIVE) mg/dL Urine Occult Blood Negative (NEGATIVE) Urine Nitrite Negative (NEGATIVE) Urine Bilirubin Negative (NEGATIVE) Urine Urobilinogen 0.2 (0.2-1.0) EU/dL Ur Leukocyte Esterase Negative (NEGATIVE) Urine HCG, Qual Negative (NEGATIVE) Imaging Data CT scan - abdomen: Attestation: I have reviewed the pertinent imaging results. Radiologist's impression: ITS Impressions Abdomen/Pelvis CT 05/18/24 14:55 IMPRESSION: Slight reduction in perianal abscess with percutaneous drainage catheter Moderate inflammatory changes of the colon with right midabdominal diverting colostomy consistent with known history of colitis Electronically authenticated by: JEANINE VAZQUEZ Date: 05/18/2024 16:29 Discharge Plan Discharge Stand Alone Forms: Work/School Release, Portal Instructions Chief Complaint: Abdominal Pain Clinical Impression: Abdominal pain, Exacerbation of Crohn's disease, Abscess, perianal Patient Disposition: Home, Self-Care Time of Disposition Decision: 17:13 Condition: Good Mode of Transportation: Private Vehicle Prescriptions / Home Meds: New tramadol 50 mg tablet 50 mg PO Q8H PRN (Reason: pain) Qty: 9 0RF No Action ondansetron HCl 4 mg tablet 4 mg PO Q6H PRN (Reason: nausea and vomiting) Qty: 10 0RF buprenorphine-naloxone 8-2 mg film 1 film sublingual TID buspirone 10 mg tablet 10 mg PO TID prednisone 20 mg tablet 20 mg PO DAILY ciprofloxacin HCl 500 mg tablet 500 mg PO Q12H Qty: 20 0RF metronidazole 500 mg tablet 500 mg PO TID 10 Days Qty: 30 0RF Print Language: Swedish Instructions: Crohn Disease (ED), Anorectal Abscess and Anal Fistula (ED), Abdominal Pain (ED) Additional Instructions: Follow up with your surgeon and GI specialist for a recheck, further evaluation and treatment. Return to the ED for new or worsening symptoms. Continue your antibiotics as directed. Referrals: Physician,Non-Staff, MD [Primary Care Provider] - 1 week Discharge Date/Time: 05/18/24 17:33
[2024-05-18] MEDS: 0.9 % SODIUM CHLORIDE 1,000 ML 999 ML IV (14:23)
[2024-05-18 14:51] LABS: Basophils Percent Auto 0.4 % (0.2-2.0); Eosinophils Absolute Auto 0.1 10^3/uL (0.0-0.7); Eosinophils Percent Auto 1.7 % (0.9-7.0); Hematocrit 38.5 % (36.0-48.0); Hemoglobin 11.8 g/dL (12.0-16.0); Immature Granulocytes Abs Auto 0.09 10^3/uL (0.00-0.03); Immature Granulocytes Pct Auto 1.1 % (0.0-0.5); Lymphocytes Absolute Auto 1.2 10^3/uL (1.2-3.8); Lymphocytes Percent Auto 14.5 % (20.5-60.0); Mean Corpuscular HGB Conc 30.6 g/dL (29.9-35.2); Mean Corpuscular Hemoglobin 26.1 pg (26.7-34.0); Mean Corpuscular Volume 85.2 fL (81.0-99.0); Mean Platelet Volume 9.7 fL (9.5-13.5); Monocytes Absolute Auto 0.6 10^3/uL (0.3-0.8); Monocytes Percent Auto 6.8 % (1.7-12.0); Neutrophils Absolute Auto 6.3 10^3/uL (1.4-6.5); Neutrophils Percent Auto 75.5 % (43.0-75.0); Platelet Count 506 10^3/uL (150-450); Red Blood Count 4.52 10^6/uL (4.20-5.40); White Blood Count 8.3 10^3/uL (4.0-11.0)
--- NOTE | 2024-05-18 14:55 | CT_ITS ---
The [address] [address] Patient Name: DELL MARTÍNEZ MRN: [id number] date: 1995 Sex: F Assigned Patient Location: ER Current Patient Location: ER Accession/Order Number: [id number] Exam Date: 05/18/2024 14:45 Report Date: 05/18/2024 16:29 At the request of: ANNA WESTFALL Procedure: CT abdomen pelvis w con EXAMINATION: CT abdomen pelvis w con HISTORY: Pain COMPARISON: 05/12/2024 TECHNIQUE: CT images were created with IV contrast. Axial, Coronal, and Sagittal images. Dose reduction techniques were achieved by using automated exposure control and/or adjustment of mA and/or kV according to patient size and/or use of iterative reconstruction technique. FINDINGS: LUNG BASES: No visible pulmonary or pleural disease. LIVER: No enlargement, atrophy, abnormal density, or significant focal lesion. BILIARY: No visible dilatation or calcification. PANCREAS: No lesion, fluid collection, ductal dilatation, or atrophy. SPLEEN: No enlargement or focal lesion. ADRENALS: No mass or enlargement. KIDNEYS: No mass, obstruction, or calcification. BOWEL/MESENTERY: Moderate inflammatory changes of the entire colon with a right midabdominal diverting colostomy. Nonobstructive bowel gas pattern. AORTA/VASCULAR: No aneurysm or dissection. RETROPERITONEUM: No mass or adenopathy. LYMPH NODES: No adenopathy. URINARY BLADDER: No visible focal wall thickening, lesion, or calculus. PELVIC ORGANS: Heterogeneous uterus, correlate with the menstrual cycle ABDOMINAL WALL: No mass or hernia. BONES: No bony lesion or fracture. OTHER: Partially visualized percutaneous drainage catheter identified in the gluteal cleft extending to the anorectal junction. The soft tissue is noted in this region with reduction in the previously identified fluid collection. This area extends into the right ischiorectal fat, axial image 172 CT/CT abdomen pelvis w con IMPRESSION: Slight reduction in perianal abscess with percutaneous drainage catheter Moderate inflammatory changes of the colon with right midabdominal diverting colostomy consistent with known history of colitis Electronically authenticated by: JEANINE VAZQUEZ Date: 05/18/2024 16:29
[2024-05-18 15:05] LABS: Alanine Aminotransferase 19 U/L (14-59); Albumin Globulin Ratio 0.5; Albumin Level 2.6 g/dL (3.4-5.0); Alkaline Phosphatase 79 U/L (46-116); Anion Gap 12.6; Aspartate Amino Transferase 19 U/L (15-37); BUN Creatinine Ratio 3.4; Bilirubin Total 0.3 mg/dL (0.2-1.0); Calcium 9.3 mg/dL (8.5-10.1); Carbon Dioxide 28.7 mmol/L (21.0-32.0); Chloride 99 mmol/L (98-107); Estimated GFR (African America >60 (>=60); Estimated GFR (Non-African Ame >60 (>=60); Glucose 123 mg/dL (74-106); Potassium 3.3 mmol/L (3.5-5.1); Sodium 137 mmol/L (136-145); Total Protein 7.6 g/dL (6.4-8.2)
[2024-05-18 15:08] VITALS: BP 91/63; PULSE 103; O2SAT 100
[2024-05-18 16:32] LABS: Bilirubin Urine NEGATIVE (NEGATIVE); Blood Urine NEGATIVE (NEGATIVE); Clarity Urine CLEAR (CLEAR); Color Urine LT. YELLOW (YELLOW); Glucose Urine UA NEGATIVE (NEGATIVE); Ketones Urine NEGATIVE (NEGATIVE); Leukocyte Esterase Urine NEGATIVE (NEGATIVE); Nitrite Urine NEGATIVE (NEGATIVE); Protein Urine NEGATIVE (NEG/TRACE); Specific Gravity Urine <=1.005 (1.005-1.025); Urobilinogen Urine 0.2 EU/dL (0.2-1.0); pH Urine 7.5 (5.0-9.0)
[2024-05-18] MEDS: MORPHINE SULFATE 4 MG/ML VIAL IV (16:32)
[2024-05-18 16:39] VITALS: BP 93/63; PULSE 102; O2SAT 98
[2024-05-18 16:41] LABS: HCG Qualitative Urine* NEGATIVE (NEGATIVE); Internal Control Within Normal Limits; Urine Microscopic Indicated NO
== END 2024-05-18 17:33 | disposition home or self-care (01) ==
PROVIDERS: Nurse Practitioner Family; Emergency Provider Emergency Medicine
DX: R10.9 Unspecified abdominal pain (principal); K61.0 Anal abscess; K50.90 Crohn's disease, unspecified, without complications
CPT/HCPCS: 36415; 74177; 80053; 81003; 83690; 84703; 85025; 96374; 99285; J2270; Q9967

== ENCOUNTER 2024-10-24 17:15 | Emergency (ER) | payer OTHER, SELFPAY ==
[2024-10-24] VITALS (35 sets, daily range): BP systolic 82–104; BP diastolic 50–70; PULSE 84–118; TEMP 36.6; O2SAT 62–100; BMI 20.6
--- OUTSIDE RECORDS SUMMARY | 2024-10-24 17:23 | XMS_ITS | CCD ---
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 Name Role Phone HARRY DEVINE Admitting Unavailable HARRY DEVINE Attending Unavailable MISC, DOCTOR Consulting Unavailable HARRY DEVINE Consulting Unavailable Jose Raul Phillips Primary Care Provider Jose Raul Phillips Primary Care Provider [phone] Jose Raul Plata Primary Care Provider PROVIDER, UNKNOWN Admitting Unavailable JOSE RAUL PHILLIPS Primary Care Unavailable CONSULT, IP SURGERY TRIAGE Consulting Unava ilable LEE ANN JAMES Attending Unavailable PROVIDER, UNKNOWN Admitting Unavailable PROVIDER, UNKNOWN Attending Unavailable JOSE RAUL PHILLIPS Primary Care Unavailable Jose Raul PHILLIPS Primary Care Physician Unavailable Primary Care Provider Unavailabl e JOSE RAUL PHILLIPS Primary Care Unavailable DARLYN MCLAIN Attending Unavailable Jose Raul PHILLIPS Primary Care Physician [phone] Kale Rendon MD Primary Care Provi vasile Karlos Rawls MD Unavailable NONE, XXXX Primary Care Physician Unavailab Kale Hernandez Primary Care Physician [phone] Mingo Rendon Unavailable Unavailable [place] Unavailable Harry Nelson Attending Unavailable Harry Nelson Admitting Unavailable Jose Raul Phillips Primary Care Unavailable Garcia Franco Jr Admitting Unavailable Chester Rendon Primary Care Unavailable Garcia Franco Jr Attending Unavailable Kale RENDON Primary Care Physician Kale Rendon MD Primary Care Provi vasile Alfred Graham Attending Unavailable Heriberto Zelaya Attending Unavailable Harry Devine Attending Unavailable Lisandro, Astrradhika Drake Attending Unavailable Garcia, Heriberto Attending Unavailable Zuly Soto Attending Unavailable Harry Devine Attending Unavailable Elliot Macias Attending Unavailable Jessica, Anoop Ward Attending Unavailable Jessica, Anoop Ward Admitting Unavailable Jessica, Anoop Ward Attending Unavailable Jessica, Anoop Ward Admitting Unavailable Jessica, Anoop Ward Admitting Unavailable Jessica, Anoop Ward Attending Unavailable Elliot Macias Attending Unavailable Hajdari, Astrit H Attending Unavailable Hajdari, Astrit H Attending Unavailable Hajdari, Astrit H Attending Unavailable Hajdari, Astrit H Attending Unavailable Hajdari, Astrit H Attending [facility]available [facility] Unavailabl e Havitoari, Astrit H Attending Unavailable Harry Devine Attending Unavailable Elliot Macias Attending Unavailable Ida, Harry Attending Unavailable AHMED, AHMED Admitting Unavailable AHMED, AHMED Attending Unavailable [facility] Unava ilable Lee Ann Humphries Consulting Unavailable [facility] Primary Care Unava ilable JORJE LOYD Attending Unavailable [facility] Unava ilable DAWN CABELLO Referring Unavailab antonia [facility] Care Unava ilable SHAQ THAKKAR Admitting Unavailab SHAQ Woods Attending Unavailab le [facility] Care Unava ilable KALE PRADO Admitting Unavaila ble KALE PRADO Attending Unavaila ble IGOR, NAE D Attending Unavailable [facility]AT [facility] Care Unava ilable ZANOTTI, NAE D Attending Un[facility] Unava ilable ZANOTTI, NAE D Referring Unavailable [facility] Primary Care Unava ilable ZAMONETTI, NAE D Attending Unavailable [facility] [place] [facility] Care Unava ilable SHAQ THAKKAR Referring Unavailab le SHAQ THAKKAR Attending Unavailab le [facility] Primary Care Unava ilable ZANOTTI, NAE D Referring Unavailable [facility] Primary Care Unava ilable PATRICIA RAMIREZ Attending Unavailable [facility] Primary Care Unava ilable KALE PRADO Referring Unavaila ble ZANOTTI, NAE D Attending Unavailable KALE RENDON Primary [facility] Unava ilable ZANOTTI, NAE D Referring Unavailable [facility]AT[facility] Primary Care Unava ilable ZANOTTI, NAE D Referring Unavailable KALE RENDON Primary Care Unava ilable SHAQ THAKKAR Attending Unavailab le KALE RENDON [facility] Unava ilable ZANOTTI, NAE D Referring [facility]available [facility] Unava ilable ZANOTTI, NAE D Attending Unavailable KALE RENDON [facility] Care Unava ilable UMBEL, LEE ANN Attending Unavailable KALE RENDON [facility] Unava ilable UMBEL, LEE ANN Referring Unavailable MERVATKALE Primary Care Unava ilable UMBEL, LEE ANN Referring Unavailable KALE RENDON [facility] Unava ilable ZANOTTI, NAE D Referring Unavailable KALE RENDON [facility] Unava ilable ZANOTTI, NAE D Attending Unavailable [facility] Unava ilable ZANOTTI, NAE D Referring Unavailable [facility] Unava ilable [facility] Unava ilable Harry Devine Attending Unavailable Carolyn Mcmahon Attending Unavailable Elliot Macias Attending Unavailable Harry Devine Attending Unavailable Allergies Allergy Classification Reported Allergen(s) Allergy Type Date of Onset Reaction(s) Facility (3 sources) HYDROmorphone; Translations: [HYDROMORPHONE] Drug Allergy 05-26-2023 [facility] (20 sources) HYDROmorphone Drug Allergy 05-26-2023 Itching [facility] Medications Current Medications Medication Drug Class(es) Dates Sig (Normalized) Sig (Original) acetaminophen 325 mg / HYDROcodone bitartrate 5 mg oral tablet (20 sources) Opioid Agonist Start: 08-27-2021 [place] 325 mg-5 mg oral tablet 1 tab(s), Oral, q6hr for pain, 10 tab(s), Refill(s) 0 Start Date: 05/31/22 Status: Ordered Start: 08-10-2020 End: 08-13-2020 take 1 tablet by mouth every six hours as needed for pain, then take 1 tablet by mouth as needed for pain HYDROcodone-acetaminophen (NORCO) 5-325 MG per tablet Indications: Acute Crohn's disease without complication (HCC) Take 1 tablet by mouth every 6 hours as needed for Pain for up to 3 days. Intended supply: 3 days. Take lowest dose possible to manage pain 10 tablet 0 08/10/2020 08/13/2020 Active acetaminophen 325 mg / oxyCODONE hydrochloride 5 mg oral tablet (20 sources) Opioid Agonist Start: 03-08-2024 Percocet 5 mg- 325 mg oral tablet 1 tab(s), Oral, q6hr as needed for pain, 12 tab(s), Refill(s) 0, [id number], 167, cm, 03/08/24 9:51:00 EDT, Height/Length Dosing, 86.2, kg, 03/08/24 9:51:00 EDT, Weight Dosing Start Date: 03/08/24 Status: Ordered Start: 08-23-2023 End: 09-05-2023 take 1 tablet by mouth every four hours as needed for pain oxyCODONE-acetaminophen (PERCOCET) 5-325 mg tablet Indications: Abdominal pain affecting Take 1 tablet by mouth every 4 hours as needed for pain. 5 tablet 0 08/23/2023 09/05/2023 Discontinued Start: 10-27-2022 End: 01-29-2023 Percocet 5 mg-325 mg oral ta blet 1 tab(s), Oral, q6hr, 8 tab(s), Refill(s) 0, [id number], 168, cm, 01/29/23 11:35:00 EDT, Height/Length Dosing, 83.5, kg, 01/29/23 11:35:00 EDT, Weight Dosing Start Date: 01/29/23 Status: Ordered Start: 07-12-2021 Percocet 325 m g-5 mg Tab 1 tab(s), Oral, q6hr as needed for pain, 12 tab(s), Refill(s) 0 Start Date: 07/12/21 Status: Ordered Start: 07-12-2021 Percocet 325 m g-5 mg Tab 1 tab(s), Oral, q6hr as needed for pain, 12 tab(s), Refill(s) 0 Start Date: 07/12/21 Status: Ordered Comment on above: Take 1 tablet by juan jose th every 4 hours as needed for pain. 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 30 tablet 2 03/05/2023 06/03/2023 Active Comment on above: Take 1 tablet by juan jose th daily at bedtime. cephalexin 500 mg oral capsule (2 sources) Cephalosporin Antibacterial Start: 06-03-20 End: 06-09-20 take 1 capsule by mouth twice daily cephalexin 500 mg oral capsule ; 1 cap(s) orally 2 times a day Quantity: 14 Refills: 0 Ordered: 03-Jun-2023 [place] Start: 03-Jun-2023 End: 09-Jun-2023 Generic Substitution Allowed Comments: Finish all this medication unless otherwise directed by prescriber. Start: 01-13-2023 End: 01-20-2023 take 1 capsule by mouth every six hours Keflex 500 mg Cap 500 mg = 1 cap(s), Oral, q6hr, X 7 day(s), # 28 cap(s), Refills(s) 0, Pharmacy: [facility] #[id number], 168, cm, 01/13/23 14:44:00 EDT, Height/Length Dosing, 93.2, kg, 01/13/23 14:44:00 EDT, Weight Dosing Start Date: 01/13/23 Stop Date: 01/20/23 Status: Ordered Comment on above: Finish all this medi cation unless otherwise directed by prescriber. Cyproheptadine (20 sources) Start: 10-01-2023 cyproheptadine Refills(s) 0 Start Date: 10/01/23 Status: Ordered Start: 07-04-2023 End: 09-05-2023 take 1 tablet by mouth every eight hours as needed cyproheptadine (PERIACTIN) 4 mg tablet Take 1 tablet by mouth three times a day as needed. 30 tablet 0 07/04/2023 09/05/2023 Discontinued Comment on above: Take 1 tablet by juan jose three times a day as needed. dicyclomine hydrochloride 10 mg oral capsule (13 sources) Anticholinergic Start: End: take 1 capsule by mouth four times daily Bentyl 10 mg Cap 10 mg = 1 cap(s), Oral, QID, X 7 day(s), # 28 cap(s), Refills(s) 0, Pharmacy: [facility]/pharmacy #[id number], 167, cm, 07/13/24 18:32:00 EDT, Height/Length Dosing, 63.6, kg, 07/13/24 18:32:00 EDT, Weight Dosing Start Date: 07/13/24 Stop Date: 07/20/24 Status: Ordered Start: 04-08-2024 End: 04-15-2024 take 1 capsule by mouth four times daily Bentyl 10 mg Cap 10 mg = 1 cap(s), Oral, QID, X 7 day(s), # 28 cap(s), Refills(s) 0, Pharmacy: [facility] #[id number], 167, cm, 04/08/24 11:39:00 EDT, Height/Length Dosing, 77, kg, 04/08/24 11:39:00 EDT, Weight Dosing Start Date: 04/08/24 Stop Date: 04/15/24 Status: Ordered Start: 03-04-[address] [facility] four times daily Bentyl 10 mg Cap 20 mg = 2 cap(s), Oral, QID, # 20 cap(s), Refills(s) 0, Pharmacy: [facility] #[id number], 167, cm, 03/04/24 9:30:00 EDT, Height/Length Dosing, 82.6, kg, 03/04/24 9:30:00 EDT, Weight Dosing Start Date: 03/04/24 Status: Ordered Start: 01-09-2023 End: 01-19-2023 take 1 capsule by mouth four times daily Bentyl 10 mg Cap 10 mg = 1 cap(s), Oral, QID, X 10 day(s), # 40 cap(s), Refills(s) 0, Pharmacy: [facility] #[id number], 168, cm, 01/09/23 12:47:00 EDT, Height/Length Dosing, 93.2, kg, 01/09/23 12:47:00 EDT, Weight Dosing Start Date: 01/09/23 Stop Date: 01/19/23 Status: Ordered Start: 12-24-2022 take 1 tablet by juan jose th every six hours as needed for pain dicyclomine (BENTYL) 20 MG tablet Take 1 tablet by mouth every 6 hours as needed (abd pain) 10 tablet 0 12/24/2022 Active Start: 05-31-2022 End: 06-07-2022 take 1 capsule by mouth four times daily Bentyl 10 mg Cap 10 mg = 1 cap(s), Oral, QID, X 7 day(s), # 14 cap(s), Refills(s) 0 Start Date: 05/31/22 Stop Date: 06/07/22 Status: Ordered Comment on above: Take 10 mg by mouth before meals and at bedtime. ferrous sulfate 325 mg oral tablet (2 sources) Start: take 1 tablet by mouth every other day ferrous sulfate 325 mg (65 mg iron) tablet Take 1 tablet by mouth every other day. 15 tablet 2 10/27/2023 Active Comment on above: Take 1 tablet by juan jose th every other day. hydrocortisone 25 mg/ml topical cream (6 sources) Corticosteroid Start: 023 End: hydrocortisone (ANUSOL-HC) 2.5 % rectal cream Indications: Crohn's colitis, unspecified complication (HCC) , Rectal pain by RECTAL route twice daily. 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 15 g 0 03/05/2023 Active Comment on above: Insert one(1) applic atorful rectally as directed daily. by RECTAL route twic e daily. hydrOXYzine hydrochloride 10 mg oral tablet (20 sources) Antihistamine Start: 01-22-20 End: 02-21-20 take 1 tablet by mouth every six hours as needed hydrOXYzine HCl (ATARAX) 10 mg tablet Take 1 tablet by mouth four times daily as needed. 120 tablet 0 01/21/2023 02/20/2023 Active Start: 12-18-2021 take 1-2 tablets by mouth four times daily as needed for anxiety Vistaril 25 mg Tab 1-2 tab(s), Oral, QID, PRN as needed for anxiety, # 20 tab(s), Refills(s) 0, Pharmacy: [facility] , 168, cm, 12/18/21 3:53:00 EDT, Height/Length Dosing, 102.3, kg, 12/18/21 3:53:00 EDT, Weight Dosing Start Date: 12/18/21 Status: Ordered Start: 12-18-2021 take 1-2 tablets by mouth four times daily as needed for anxiety Vistaril 25 mg Tab 1-2 tab(s), Oral, QID, PRN as needed for anxiety, # 20 tab(s), Refills(s) 0, Pharmacy: [facility] , 168, cm, 12/18/21 3:53:00 EDT, Height/Length Dosing, 102.3, kg, 12/18/21 3:53:00 EDT, Weight Dosing Start Date: 12/18/21 Status: Ordered Comment on above: Take 1 tablet by juan jose th four times daily as needed. Venofer (9 sources) Parenteral Iron Replacement Start: 4 Venofer Refills(s) 0 Start Date: 10/01/23 Status: Ordered lurasidone hydrochloride 20 mg oral tablet (15 sources) Atypical Antipsychotic Start: 1 take 1 tablet by mouth once daily Latuda 20 mg oral tablet 20 mg = 1 tab(s), Oral, Daily, # 30 tab(s), Refills(s) 0, [facility], 166, cm, 02/21/21 8:47:00 EDT, Height/Length Dosing, 97.9, kg, 02/21/21 8:47:00 EDT, Weight Dosing Start Date: 02/21/21 Status: Ordered Metoclopramide (20 sources) Dopamine-2 Receptor Antagonist Start: 4 Reglan Refills(s) 0 Start Date: 10/01/23 Status: Ordered Start: 07-04-2023 take 1 tablet by juan jose th three times daily metoclopramide HCl (REGLAN) 10 mg tablet Take 1 tablet by mouth three times a day. 30 tablet 0 07/04/2023 Suspended Start: 04-27-2023 take 1 tablet by juan jose th every six hours as needed for nausea metoclopramide 10 mg oral tablet, disintegrating 10 mg = 1 tab(s), Oral, q6hr, PRN Nausea/Vomiting, # 30 tab(s), Refills(s) 0, Pharmacy: [facility]/pharmacy #[id number], 167.6, cm, 04/26/23 22:31:00 EDT, Height/Length Dosing, 87, kg, 04/26/23 22:31:00 EDT, Weight Dosing Start Date: 04/27/23 Status: Ordered Comment on above: Take 1 tablet by juan jose th three times a day. ondansetron 4 mg disintegrating oral tablet (20 sources) Serotonin-3 Receptor Antagonist Start: take 1 tablet by mouth every six hours ondansetron 4 mg Dis Tab 4 mg = 1 tab(s), Oral, q6hr, # 12 tab(s), Refills(s) 0, Pharmacy: [facility]/pharmacy #[id number], 167, cm, 10/02/24 14:00:00 EST, Height/Length Dosing, 53.1, kg, 10/02/24 14:00:00 EST, Weight Dosing Start Date: 10/02/24 Status: Ordered Start: 01-09-2023 take 1 tablet by juan jose th every eight hours as needed for nausea and vomiting ondansetron orally disintegrating (ZOFRAN ODT) 4 mg disintegrating tablet TAKE 1 TABLET BY MOUTH EVERY 8 HOURS NEEDED FOR NAUSEA AND VOMITING 0 01/09/2023 Suspended Start: 12-24-2022 End: 12-24-2022 ondansetron (ZOFRAN) injecti on 4 mg Start: 05-31-2022 Zofran 4 mg Ta b Refills(s) 0 Start Date: 10/01/23 Status: Ordered Start: 11-17-2021 take 1 tablet by juan jose th every four hours as needed for nausea ondansetron (ZOFRAN ODT) 4 MG disintegrating tablet Take 1 tablet by mouth every 4 hours as needed for Nausea or Vomiting 15 tablet 1 11/17/2021 Active Start: 08-10-2020 take 1 tablet by juan jose th every eight hours as needed for nausea ondansetron (ZOFRAN ODT) 4 MG disintegrating tablet Take 1 tablet by mouth every 8 hours as needed for Nausea or Vomiting 10 tablet 0 08/10/2020 Active Start: 08-10-2020 End: 08-10-2020 ondansetron (ZOFRAN) injecti on 4 mg Comment on above: TAKE 1 TABLET BY JUAN JOSE TH EVERY 8 HOURS NEEDED FOR NAUSEA AND VOMITING oxyCODONE hydrochloride 5 mg oral tablet (2 sources) Opioid Agonist Start: 12-21-2023 End: 12-24-2023 take 1 tablet by mouth every six hours as needed for pain oxyCODONE 5 mg Tab 5 mg = 1 tab(s), Oral, q6hr, PRN for pain, X 3 day(s), # 12 tab(s), Refills(s) 0, Pharmacy: [facility]/pharmacy #[id number], 167, cm, 12/21/23 14:53:00 EDT, Height/Length Dosing, 85, kg, 12/21/23 14:53:00 EDT, Weight Dosing Start Date: 12/21/23 Stop Date: 12/24/23 Status: Ordered Start: 04-18-2023 End: 04-19-2023 take 1 tablet by mouth every six hours as needed for pain oxyCODONE IR (ROXICODONE) 5 mg immediate release tablet Indications: Crohn's colitis, unspecified complication (HCC) Take 1 tablet by mouth every 6 hours as needed for pain for up to 1 day. 4 tablet 0 04/18/2023 04/19/2023 Active Comment on above: Take 1 tablet by juan jose th every 6 hours as needed for pain for up to 1 day. predniSONE 50 mg oral tablet (20 sources) Start: 07-13-2024 End: 07-18-2024 take 1 tablet by mouth once daily predniSONE 50 mg Tab 50 mg = 1 tab(s), Oral, Daily, X 5 day(s), # 5 tab(s), Refills(s) 0, Pharmacy: [facility]/pharmacy #[id number], 167, cm, 07/13/24 18:32:00 EDT, Height/Length Dosing, 63.6, kg, 07/13/24 18:32:00 EDT, Weight Dosing Start Date: 07/13/24 Stop Date: 07/18/24 Status: Ordered Start: 04-08-2024 predniSONE 10 mg Tab as directed, Oral, As Directed, 6 tabs for 4 days,5 tabs for 4 days,4 tabs for 4 days,3 tabs for 4 days, then resume your maintenance 20 mg of prednisone., # 72 tab(s), Refills(s) 0, Pharmacy: [facility]acy #[id number], 167, cm, 04/08/24 11:39:00 EDT, Height/Length Dosing, 77, kg, 04/08/24 11:39:00 EDT, Weight Dosing Start Date: 04/08/24 Status: Ordered Start: 03-08-2024 predniSONE 10 mg Tab See Instructions, Take 6 tablets once a day for 4 days, then 5 tablets once a day for 4 days, then 4 tablets once a day for 4 days, then 3 tablets a day for 4 days, then continue with your 20 mg prednisone daily, # 72 tab(s), Refills(s) 0, Pharmacy: [facility]/pharmacy #[id number], 167, cm, 03/08/24 9:51:00 EDT, Height/Length Dosing, 86.2, kg, 03/08/24 9:51:00 EDT, Weight Dosing Start Date: 03/08/24 Status: Ordered Start: 02-25-2024 End: 05-25-2024 take 1 tablet by mouth once daily predniSONE (DELTASONE) 20 mg tablet Take 1 tablet by mouth once daily. 90 tablet 02/25/2024 05/25/2024 Active Start: 12-21-2023 End: 02-19-2024 predniSONE 10 mg Tab 0 = 1 - , Oral, As Directed, Take 5 tabs by mouth daily x5 days, 4 daily x5 days, 3 daily x5 days, 2 daily x5 days, then 1 tab daily x5 days., # 75 tab(s), Refills(s) 0, Pharmacy: [facility] #[id number], 167, cm, 12/21/23 14:53:00 EDT, Height/Length Dosing, 85, kg, 12/21/23 14:53:00 EDT, Weight Dosing Start Date: 12/21/23 Status: Ordered Start: 12-07-2023 predniSONE 10 mg Tab See Instructions, 6 tabs for 2 days,5 tabs for 2 days,4 tabs for 2 days,3 tabs for 2 days,2 tabs for 2 days,1 tab for 2 days, # 42 tab(s), Refills(s) 0, Pharmacy: [facility]/pharmacy #[id number], 167, cm, 12/07/23 18:59:00 EDT, Height/Length Dosing, 84.9, kg, 12/07/23 18:59:00 EDT, Weight Dosing Start Date: 12/07/23 Status: Ordered Start: 01-09-2023 End: 01-16-2023 take 1 tablet by mouth once daily predniSONE 50 mg Tab 50 mg = 1 tab(s), Oral, Daily, X 7 day(s), # 7 tab(s), Refills(s) 0, Pharmacy: [facility]/pharmacy #[id number], 168, cm, 01/09/23 12:47:00 EDT, Height/Length Dosing, 93.2, kg, 01/09/23 12:47:00 EDT, Weight Dosing Start Date: 01/09/23 Stop Date: 01/16/23 Status: Ordered Start: 10-27-2022 End: 09-26-2023 take 4 tablets by mouth once daily, then take 3 tablets by mouth once daily, then take 2 tablets by mouth once daily, then take 1 tablet by mouth once daily predniSONE (DELTASONE) 10 mg tablet Take 4 tablets by mouth once daily for 7 days, THEN 3 tablets once daily for 7 days, THEN 2 tablets once daily for 7 days, THEN 1 tablet once daily for 7 days. 70 tablet 0 08/30/2023 09/26/2023 Active Start: 09-29-2022 End: 10-04-2022 take 2 tablets by mouth once daily predniSONE 20 mg Tab 40 mg = 2 tab(s), Oral, Daily, X 5 day(s), # 10 tab(s), Refills(s) 0, [id number], 167, cm, 09/29/22 19:14:00 EST, Height/Length Dosing, 87, kg, 09/29/22 19:14:00 EST, Weight Dosing Start Date: 09/29/22 Stop Date: 10/04/22 Status: Ordered Start: 08-10-2020 End: 08-15-2020 take 2 tablets by mouth once daily predniSONE (DELTASONE) 20 MG tablet Take 2 tablets by mouth daily for 5 days 10 tablet 0 08/10/2020 08/15/2020 Active Start: 03-01-2020 End: 08-10-2020 predniSONE (DELTASONE) 20 MG tablet 3 tablets daily x3 days then 2 tablets daily x3 days then 1 tablet daily x3 days 18 tablet 0 03/01/2020 08/10/2020 Discontinued (Therapy completed) Comment on above: Take 4 tablets by mo [facility] once daily for 7 days, THEN 3.5 tablets once daily for 7 days, THEN 3 tablets once daily for 7 days, THEN 2.5 tablets once daily for 7 days, THEN 2 tablets once daily for 7 days, THEN 1.5 tablets once daily for 7 days, THEN 1 tablet once daily for 7 days. Take 4 tablets by [facility] once daily for 7 days, THEN 3 tablets once daily for 7 days. Take 4 tablets by mo [facility] once daily for 7 days, THEN 3.5 tablets once daily for 7 days, THEN 3 tablets once daily for 7 days, THEN 2.5 tablets once daily for 7 days, THEN 2 tablets once daily for 7 days, THEN 1.5 tablets once daily for 7 days, THEN 1 tablet once daily for 7 days, THEN 0.5 tablets once daily for 7 days. Take 4 tablets by [facility] once daily for 7 days, THEN 3 tablets once daily for 7 days, THEN 2 tablets once daily for 7 days, THEN 1 tablet once daily for 7 days. VIT 45-AZPC-YETJC-DHA ORAL (14 sources) VIT 52-RMUW-IJRCP-DHA ORAL Take by mouth. 0 Suspended VIT 10- GITL-[id number]-UVW ORAL Take by mouth. 0 Active Comment on above: Take by mouth. promethazine hydrochloride 25 mg oral tablet (20 sources) Phenothiazine Start: 10-02-2024 take 1 tablet by mouth every four hours as needed for nausea promethazine 25 mg Tab 25 mg = 1 tab(s), Oral, q4hr, PRN for nausea/vomiting, # 20 tab(s), Refills(s) 0, Pharmacy: [facility]/pharmacy #[id number], 167, cm, 10/02/24 14:00:00 EST, Height/Length Dosing, 53.1, kg, 10/02/24 14:00:00 EST, Weight Dosing Start Date: 10/02/24 Status: Ordered Start: 01-13-2023 take 1 tablet by juan jose th every six hours as needed for nausea promethazine 25 mg Tab 25 mg = 1 tab(s), Oral, q6hr, PRN as needed for nausea/vomiting, # 20 tab(s), Refills(s) 0, [id number] 168, cm, 01/13/23 14:44:00 EDT, Height/Length Dosing, 93.2, kg, 01/13/23 14:44:00 EDT, Weight Dosing Start Date: 01/13/23 Status: Ordered Start: 05-31-2022 take 25 mg rectal ro table [place] every six hours as needed for nausea Phenergan 25 mg Supp 25 mg = 1 supp, Rectal, q6hr, PRN Nausea/Vomiting, # 6 EA, Refills(s) 0 Start Date: 05/31/22 Status: Ordered Comment on above: Take 25 mg by mouth every 6 hours as needed. Zoloft (20 sources) Serotonin Reuptake Inhibitor Start: 10-01-2023 Zoloft Refills(s) 0 Start Date: 10/01/23 Status: Ordered Start: 07-24-2023 Zoloft 50 mg T ab 50, Oral, Daily, Refills(s) 0 Start Date: 09/06/23 Status: Ordered Start: 07-08-2023 End: 07-24-2023 take 1 tablet by mouth once daily, then take 2 tablets by mouth once daily sertraline (ZOLOFT) 25 mg tablet Take one tablet by mouth once daily for 2 weeks. If tolerating well, may increase to 2 tablets daily. 30 tablet 0 07/08/2023 07/24/2023 Discontinued Comment on above: Take one tablet by m outh once daily for 2 weeks. If tolerating well, may increase to 2 tablets daily. Take 1 tablet by juan jose th once daily. SUMAtriptan 25 mg oral tablet (3 sources) Serotonin-1b and Serotonin-1d Receptor Agonist Start: take 1 tablet by mouth every twelve hours as needed SUMAtriptan (IMITREX) 25 mg tablet Take 1 tablet (25 mg) by mouth two times a day as needed for migraine headache (see administration instructions). at onset of headache. May repeat after 2 hours. 2 tablet 0 10/15/2023 Active Comment on above: Take 1 tablet (25 mg ) by mouth two times a day as needed for migraine headache (see administration instructions). at onset of headache. May repeat after 2 hours. 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 2 Each 02/25/2024 Active Zofran ODT 4 mg Tab-Dis (20 sources) Start: 04-08-2024 take 1 tablet by mouth every eight hours as needed for nausea Zofran ODT 4 mg Tab-Dis 4 mg = 1 tab(s), Oral, q8hr, PRN Nausea/Vomiting, # 12 tab(s), Refills(s) 0, Pharmacy: [facility]/pharmacy #[id number], 167, cm, 04/08/24 11:39:00 EDT, Height/Length Dosing, 77, kg, 04/08/24 11:39:00 EDT, Weight Dosing Start Date: 04/08/24 Status: Ordered Start: 03-04-2024 take 1 tablet by juan jose th every six hours as needed for nausea Zofran ODT 4 mg Tab-Dis 4 mg = 1 tab(s), Oral, q6hr, PRN Nausea/Vomiting, # 12 tab(s), Refills(s) 0, Pharmacy: [facility]/pharmacy #[id number], 167, cm, 03/04/24 9:30:00 EDT, Height/Length Dosing, 82.6, kg, 03/04/24 9:30:00 EDT, Weight Dosing Start Date: 03/04/24 Status: Ordered Start: 12-21-2023 take 1 tablet by juan jose th every eight hours Zofran ODT 4 mg Tab-Dis 4 mg = 1 tab(s), Oral, q8hr, # 12 tab(s), Refills(s) 0, [id number] 167, cm, 12/21/23 14:53:00 EDT, Height/Length Dosing, 85, kg, 12/21/23 14:53:00 EDT, Weight Dosing Start Date: 12/21/23 Status: Ordered Start: 01-09-2023 take 1 tablet by juan jose th every eight hours as needed for nausea Zofran ODT 4 mg Tab-Dis 4 mg = 1 tab(s), Oral, q8hr, PRN Nausea/Vomiting, # 20 tab(s), Refills(s) 0, Pharmacy: [facility]/pharmacy #[id number], 168, cm, 01/09/23 12:47:00 EDT, Height/Length Dosing, 93.2, kg, 01/09/23 12:47:00 EDT, Weight Dosing Start Date: 01/09/23 Status: Ordered Start: 10-27-2022 [facility] Zofran ODT 4 mg Tab-Dis 4 mg = 1 tab(s), Oral, q8hr, # 10 tab(s), Refills(s) 0, Pharmacy: [facility]/pharmacy #[id number], 168, cm, 10/27/22 0:31:00 EST, Height/Length Dosing, 93.2, kg, 10/27/22 0:31:00 EST, Weight Dosing Start Date: 10/27/22 Status: Ordered Completed/Discontinued Medications Medication Drug Class(es) Dates Sig (Normalized) Sig (Original) acetaminophen 325 mg oral tablet (3 sources) Start: 04-01-2024 End: 04-01-2024 acetaminophen 650 mg tab(s) (TYLENOL) Start: 03-12-2024 End: 03-12-2024 acetaminophen 650 mg tab(s) (TYLENOL) Start: 05-02-2023 End: 07-04-2023 take 2 tablets by mouth every six hours as needed acetaminophen (TYLENOL) 325 mg tablet Take 2 tablets by mouth every 6 hours as needed for pain. 0 05/02/2023 07/04/2023 Discontinued Comment on above: Take 2 tablets by [facility] every 6 hours as needed for pain. 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 60 tablet 0 03/05/2023 Active take 1 tablet by mouth once cristiana y Imuran 50 mg oral tablet ; 1 tab(s) orally once a day Quantity: 0 Refills: 0 Ordered: 02-Jun-2023 Rusiska, Jagruti Generic Substitution Allowed Comment on above: Take 2 tablets by [facility] once daily. 2 ml fentaNYL 0.05 mg/ml injection (1 source) Opioid Agonist Start: 03-01-2020 End: 03-01-2020 fentaNYL (SUBLIMAZE) injection 100 mcg iopamidol (ISOVUE-370) 76 % injection 75 mL (1 source) Start: 12-24-2022 End: 12-24-2022 iopamidol (ISOVUE-370) 76 % injection 75 mL 1 ml ketorolac tromethamine 30 mg/ml cartridge (1 source) Nonsteroidal Anti-inflammatory Drug, Cyclooxygenase Inhibitor Start: 08-10-2020 End: 08-10-2020 ketorolac (TORADOL) injection 30 mg Start: 08-10-2020 End: 08-10-2020 ketorolac (TORADOL) injectio n 30 mg methylPREDNISolone 125 mg injection (2 sources) Corticosteroid Start: 08-10-2020 End: 08-10-2020 methylPREDNISolone sodium (SOLU-MEDROL) injection 125 mg Start: 03-01-2020 End: 03-01-2020 methylPREDNISolone sodium (S KRISSY-MEDROL) injection 40 mg 1 ml morphine sulfate 4 mg/ml injection (1 source) Opioid Agonist Start: 12-24-2022 End: 12-24-2022 morphine sulfate (PF) injection 4 mg 125 ml sodium chloride 9 mg/ml prefilled syringe (5 sources) Start: 04-01-2024 End: 04-01-2024 sodium chloride 0.9 % (flush) 10-20 mL (BD POSIFLUSH) Start: 03-12-2024 End: 03-12-2024 sodium chloride 0.9 % (flush ) 10-20 mL (BD POSIFLUSH) Start: 12-24-2022 End: 12-24-2022 0.9 % sodium chloride bolus Start: 08-10-2020 End: 08-10-2020 0.9 % sodium chloride bolus Start: 03-01-2020 End: 03-01-2020 0.9 % sodium chloride bolus vedolizumab 300 mg in NaCl 0 .9% 250 mL (ENTYVIO) (2 sources) Start: 04-01-2024 End: 04-01-2024 vedolizumab 300 mg in NaCl 0 .9% 250 mL (ENTYVIO) Start: 03-12-2024 End: 03-12-2024 vedolizumab 300 mg in NaCl 0 .9% 250 mL (ENTYVIO) Problems Active Problems Problem Classification Problem Date Documented Da te Episodic/Chronic Abdominal pain (20 sources) Unspecified abdominal pain; Translations: [Generalized abdominal pain] Onset: Resolved: 4 11-16-2021 Episodic Allergic reactions (20 sources) Eczema 10-16-2015 Episodic Anal and rectal conditions (5 sources) Rectal abscess ; Translations: [Rectal abscess] Onset: 4 Episodic Anxiety disorders (20 sources) Anxiety disorder; Translations: [Anxiety disorder, unspecified] Onset: 2 Chronic Anxiety disorders (20 sources) Anxiety disorder due to a general medical condition 02-21-2021 Episodic Cardiac dysrhythmias (20 sources) Sinus tachycardia 12-20-2019 Episodic Complication of device; implant or graft (20 sources) Colostomy hemorrhage; Translations: [Colostomy hemorrhage] Onset: 3 Chronic Deficiency and other anemia (20 sources) Anemia 10-16-2015 Episodic Headache; including migraine (1 source) Refractory migraine; Translations: [Migraine, unspecified, intractable, without status migrainosus] 07-04-2023 Chronic Immunizations and screening for infectious disease (1 source) Needs influenza immunization; Translations: [Encounter for immunization] 07-04-2023 Episodic Mood disorders (20 sources) Bipolar disorder, most recent episode depression; Translations: [Bipolar disorder] Onset: 4 02-21-2021 Chronic Mycoses (1 source) Dermal mycosis; Translations: [Superficial mycosis, unspecified] Episodic Nausea and vomiting (5 sources) Nausea and vomiting; Translations: [Nausea with vomiting, unspecified] Onset: 2 Episodic Nausea and vomiting (1 source) Vomiting, unspecified; Translations: [VOMITING UNSPECIFIED] Onset: 9 Noninfectious gastroenteritis (2 sources) Indeterminate colitis; 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] Onset: 6 03-14-2016 Chronic Noninfectious gastroenteritis (3 sources) Indeterminate colitis; Translations: [Gastroenteritis] Onset: 6 03-14-2016 Episodic Nutritional deficiencies (20 sources) Severe protein-calorie malnutrition ([place]: less than 60% of standard weight); Translations: [Vitamin D deficiency] Onset: 8 04-13-2014 Chronic Nutritional deficiencies (20 sources) Vitamin A deficiency 04-13-2014 Episodic Other complications of (1 source) Maternal obesity complicating , childbirth and the puerperium, antepartum; Translations: [Obesity complicating , second trimester] 07-08-2023 Chronic Other complications of (20 sources) Anemia in mother complicating , childbirth AND/OR puerperium; Translations: [Anemia complicating , third trimester] Onset: 3 09-13-2023 Chronic Other complications of (1 source) Anemia complicating , third trimester; Translations: [Anemia during in third trimester] Onset: 3 Chronic Other complications of (1 source) High risk ; Translations: [Supervision of high risk , unspecified, unspecified trimester] 07-04-2023 Episodic Other gastrointestinal disorders (1 source) Ileostomy status; Translations: [ILEOSTOMY STATUS] Onset: 9 Chronic Other gastrointestinal disorders (20 sources) Irritable bowel syndrome 10-16-2015 Chronic Comment on above: with diarrhea Other gastrointestinal disorders (20 sources) Abnormal intestinal absorption; Translations: [Intestinal malabsorption, unspecified] Onset: 3 09-13-2023 Chronic Other gastrointestinal disorders (18 sources) Ileostomy present; Translations: [Ileostomy status] Onset: 4 01-18-2024 Chronic Other gastrointestinal disorders (1 source) History of Crohns disease; Translations: [Personal history of other diseases of the digestive system] Episodic Other gastrointestinal disorders (1 source) Constipation, unspecified; Translations: [Constipation, unspecified] Onset: 2 Episodic Other gastrointestinal disorders (3 sources) Diarrhea; Translations: [Diarrhea, unspecified] Onset: 4 Episodic Other gastrointestinal disorders (1 source) H/O: gastrointestinal disease; Translations: [Personal history of other diseases of the digestive system] Onset: 3 Episodic Other injuries and conditions due to external causes (1 source) Foreign body in digestive tract; Translations: [Foreign body in small intestine, initial encounter] Onset: 2 Episodic Other nutritional; endocrine; and metabolic disorders (17 sources) Body mass index 30+ - obesity 02-21-2021 Chronic Other nutritional; endocrine; and metabolic disorders (17 sources) Simple obesity 02-21-2021 Chronic Other nutritional; endocrine; and metabolic disorders (20 sources) Obese class II; Translations: [Obesity, unspecified] Onset: 0 08-26-2020 Chronic Other nutritional; endocrine; and metabolic disorders (20 sources) Obese class I; Translations: [Obesity, unspecified] Onset: 3 05-01-2023 Chronic Other skin disorders (20 sources) Fistula 08-31-2018 Episodic Other skin disorders (20 sources) H/O: psoriasis 05-15-2016 Episodic Regional enteritis and ulcerative colitis (20 sources) Crohn's disease, unspecified, without complications; Translations: [Crohn's disease] Onset: 8 Resolved: 3 05-15-2016 Chronic Residual codes; unclassified (20 sources) Device in situ 01-08-2019 Episodic Residual codes; unclassified (2 sources) Gestation period, 22 weeks; Translations: [22 weeks gestation of ] 07-04-2023 Episodic Residual codes; unclassified (1 source) Gestation period, 26 weeks; Translations: [26 weeks gestation of ] 08-01-2023 Episodic Residual codes; unclassified (1 source) Gestation period, 31 weeks; Translations: [31 weeks gestation of ] 09-05-2023 Episodic Residual codes; unclassified (1 source) At risk for depressed mood during period; Translations: [Other specified personal risk factors, not elsewhere classified] 12-02-2023 Episodic Substance-related disorders (20 sources) Nicotine dependence, cigarettes, uncomplicated; Translations: [Smoker] Onset: 9 11-16-2021 Chronic Comment on above: Added secondary to d ocumentation in Social History. Unclassified (2 sources) ABD PAIN, HEART PALP. 18 WEEKS PREG 06-02-2023 Comment on above: ABD PAIN, HEART PALP . 18 WEEKS PREG Unclassified (8 sources) [place] [employer] Onset: 4 10-27-2023 Urinary tract infections (3 sources) Urinary tract infectious disease; Translations: [Urinary tract infection, site not specified] Onset: 3 Episodic Past or Other Problems Problem Classification Problem Date Documented Date Episodic/Chronic Acute posthemorrhagic anemia (20 sources) Acute posthemorrhagic anemia; Translations: [Acute posthemorrhagic anemia] Onset: 10-25-2023 10-27-2023 Episodic Contraceptive and procreative management (20 sources) Patient encounter status; Translations: [Encounter for other general counseling and advice on contraception] Onset: 08-01-2023 Resolved: 10-27-2023 08-01-2023 Episodic Fluid and electrolyte disorders (20 sources) Hypokalemia; Translations: [Hypokalemia] Onset: 09-11-2018 Resolved: 09-12-2018 Episodic Other complications of ; puerperium affecting management of mother (20 sources) Nonreassuring status; Translations: [Other specified complications of labor and delivery] Onset: 10-24-2023 Resolved: 10-27-2023 10-24-2023 Episodic Other complications of (20 sources) Anemia of ; Translations: [Anemia complicating , third trimester] Onset: 09-05-2023 Resolved: 10-24-2023 09-05-2023 Chronic Other complications of (20 sources) Abdominal pain in ; Translations: [Other specified complications of , unspecified as to episode of care or not applicable] Onset: 07-26-2023 Resolved: 10-27-2023 06-03-2023 Episodic Other complications of (20 sources) Crohn's disease; Translations: [Diseases of the digestive system complicating , unspecified trimester] Onset: 04-30-2023 Resolved: 10-24-2023 07-04-2023 Episodic Other complications of (20 sources) Disease of the digestive system complicating , childbirth and/or the puerperium; Translations: [Diseases of the digestive system complicating , third trimester] Onset: 08-23-2023 Resolved: 10-24-2023 09-05-2023 Episodic Other complications of (19 sources) Rubella non-immune; Translations: [Rubella non-immune status, delivered, current hospitalization] Onset: 10-25-2023 Resolved: 10-27-2023 10-27-2023 Episodic Other complications of (2 sources) Diseases of the digestive system complicating , second trimester; Translations: [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)] Onset: 07-27-2023 Episodic Other complications of (1 source) Other specified related conditions, unspecified trimester; Translations: [Abdominal pain affecting ] Onset: 07-26-2023 Episodic Other complications of (1 source) Diseases of the digestive system complicating , third trimester; Translations: [Maternal Crohn's disease affecting in third trimester (HCC)] Onset: 09-05-2023 Episodic Other nutritional; endocrine; and metabolic disorders (19 sources) Hypomagnesemia; Translations: [Hypomagnesemia] Onset: 09-11-2018 Resolved: 09-12-2018 09-12-2018 Chronic Other and delivery including normal (20 sources) Normal ; Translations: [Encounter for supervision of normal , unspecified, unspecified trimester] Onset: 03-10-2023 Episodic Other screening for suspected conditions (not mental disorders or infectious disease) (20 sources) Imaging of gastrointestinal tract abnormal; Translations: [Abnormal findings on diagnostic imaging of other parts of digestive tract] Onset: 02-04-2023 Episodic Residual codes; unclassified (20 sources) Past history of procedure; Translations: [Other specified postprocedural states] Onset: 02-04-2023 Resolved: 07-04-2023 Episodic Residual codes; unclassified (19 sources) Gestation period, 13 weeks; Translations: [13 weeks gestation of ] Onset: 04-30-2023 Resolved: 07-04-2023 07-04-2023 Episodic Residual codes; unclassified (19 sources) Gestation period, 25 weeks; Translations: [25 weeks gestation of ] Onset: 07-27-2023 Resolved: 08-01-2023 08-01-2023 Episodic Residual codes; unclassified (19 sources) Gestation period, 29 weeks; Translations: [29 weeks gestation of ] Onset: 08-23-2023 Resolved: 09-05-2023 09-05-2023 Episodic Skin and subcutaneous tissue infections (20 sources) Abscess of perineum; Translations: [Cutaneous abscess of perineum] Onset: 09-09-2018 09-15-2018 Episodic Unclassified (20 sources) Onset: 05-02-2014 Resolved: 01-22-2024 03-31-2015 Results Test Name Value Interpretation Reference Range Facility ED Note-Physicianon 10-05-19 ED Note-Physician ED Note-Physician Basic Information Time Seen: Gadiel Vega PA-C 10/02/2024 13:54 Chief Complaint pt arrived via ems, c/o severe abdominal pain, n/v/d x 3 days History of Present Illness Patient is a 29-year-old female with PMH of bipolar depression, anxiety, Crohn's disease that presents today for evaluation of her nausea, vomiting, diarrhea, severe abdominal pain has been going on for the last 3 days. Patient states that she intermittently fights with Crohn's flareups and this last 1 has been going on and worsening the last 3 days. Has been seen here multiple times in the ED for similar complaints. She denies any fevers, bodies, chills. She does note that it has been difficult for her to keep anything down. She has a known ileostomy bag but also produces stool per the rectum and has had 2 bloody bowel movement over the last couple of days. She is also been dealing with some dizziness and feels like her heart is racing especially when she goes from a laying position. It is more comfortable when she is laying still. Denies any chest pain, shortness of breath, dyspnea. Review of Systems No other aggravating or relieving factors no other associated symptoms no other prior treatments or complaints. Family: Reviewed and noncontributory Social: lives at home Review of systems negative unless otherwise specified in the HPI. Physical Exam Vitals & Measurements T: 38.5 ???C(Oral) HR: 109(Monitored) RR: 16 BP: 98/73 SpO2: 95% HT: 167 cm WT: 53.1 kg BMI: 19.04 General: The patient appears well and in no apparent distress. Patient is resting comfortably on cart. Skin: Warm, dry, no pallor noted. Head: Normocephalic, atraumatic Neck: No JVD Eye: PERRLA, EOMI ENT: Moist mucus membranes Cardiovascular: Regular rate and rhythm. Normal peripheral perfusion Respiratory: CTA bilaterally. No respiratory distress no accessory muscle use no obvious audible wheezing Chest Wall: no deformity Musculoskeletal: normal ROM, no deformity, no swelling GI: Soft no obvious distention. No rebound or rigidity. No guarding. Moderate to severe tenderness in the left lower quadrant of the abdomen. Mild diffuse tenderness to the remaining abdomen. Ileostomy bag noted to the abdomen. Neurological: A&O moves all extremities equal strength and symmetry Psychiatric: Cooperative and appropriate Medical Decision Making Patient is a 29-year-old female with PMH of bipolar depression, anxiety, Crohn's disease who presents today for evaluation of her nausea, vomiting, diarrhea, severe abdominal pain that been going on for the last 3 days. Gets intermittent Crohn's flareups and this 1 has been going on and worsening over the last 2 days. Has been seen here in the ED for multiple similar complaints. Has a known ileostomy bag but also produces stool per the rectum and has had 2 bloody bowel movements over the last couple of days. Has also been dealing with some dizziness and feels like her heart is racing. Denies any other systemic signs or symptoms. On exam the patient is borderline febrile at 38.5 ???C but nontoxic-appearing. Initial heart rate elevated between 120 and 130. Patient does note that she has baseline tachycardia. She does have moderate to severe tenderness in the left lower quadrant of the abdomen. Mild diffuse tenderness to remaining abdomen. No guarding or distention appreciated. CTA to bilateral lung weinberg. Unremarkable neuroexam. Labs demonstrate mild nonspecific leukocytosis at 13. Hemoglobin hematocrit stable at 13.8 and 39.5 respectively. Mild hyponatremia at 131. Given patient's dizziness a 0 and 1 hour troponin were obtained that are WNL. Negative . CT of the abdomen and pelvis demonstrates no acute intra-abdominal process identified. Patient was given a dose of morphine, acetaminophen, Zofran with improvement of her pain but not her nausea. For this reason patient was given a dose of promethazine with improvement. She was able to pass p.o. challenge without complication. Her pain is much better as well as her nausea and vomiting. Unsure of the exact etiology of her nausea, vomiting, diarrhea. She does have known Crohn's disease but it does not look as though she is in acute flareup given negative CT scan. Patient will be discharged home with Zofran and promethazine as needed for nausea and vomiting. She already has Suboxone for her pain at home. She will have close follow-up with her GI specialist. Patient also does note continued intermittent dizziness has been going on for months and wants to see cardiology for this reason I provided her with Dr. Acevedo. Negative orthostatic vital signs here in the ED. She was given a liter of fluids and her tachycardia improved to around 100 bpm. We discussed if she has new or worsening symptoms she should promptly return to the ED for reevaluation. Return to ED precautions were reviewed with the patient at length. Assessment/Plan Crohn's disease (K50.90: Crohn's disease, unspecified, without complications) Diarrh (more content not included)... Normal [facility] Comment on above: Result Comment: Elec tronically Signed By: Gadiel Vega PA-C\.br\Date and Time Signed: 10/02/24 17:44 EST\.br\Electronically Co-Signed By: Harry Devine DO\.br\Date and Time Co-Signed: 10/05/24 08:10 EST B hCG [facility] 10-02-2024 Beta HCG ( test) Ql Negative Normal [facility] Comment on above: Performed By: #### 2 [id number] #### [facility] [address] [place] [address] BMPon 10-02-2024 Anion gap [Moles/Vol] 16 mmol/L Normal 6-16 [facility] Comment on above: Performed By: #### 2 [id number] #### [facility] [address] [place] [address] Calcium [Mass/Vol] 8.1 mg/dL Low 8.9-11.1 [facility] Comment on above: Performed By: #### 2 [id number] #### [facility] [address] [place] [address] Chloride [Moles/Vol] 90 mmol/L Low 101-111 [facility] Comment on above: Performed By: #### 2 [id number] #### [facility] [address] [place] [address] CO2 [Moles/Vol] 29 mmol/L Normal 21-31 [facility] Comment on above: Performed By: #### 2 [id number] #### [facility] [address] [place] [address] Creatinine [Mass/Vol] 0.7 mg/dL Normal 0.5-1.3 [facility] Comment on above: Performed By: #### 2 [id number] #### [facility] [address] [place] [address] Glucose [Mass/Vol] 93 mg/dL Normal 55-199 [facility] Comment on above: Performed By: #### 2 [id number] #### [facility] [address] [place] [address] Potassium [Moles/Vol] 3.5 mmol/L Normal 3.5-5.3 [facility] Comment on above: Performed By: #### 2 [id number] #### [facility] [address] [place] [address] Sodium [Moles/Vol] 131 mmol/L Low 135-145 [facility] Comment on above: Performed By: #### 2 [id number] #### [facility] [address] [place] [address] Urea nitrogen [Mass/Vol] 8 mg/dL Normal 5-21 [facility] Comment on above: Performed By: #### 2 [id number] #### [facility] [address] [place] [address] Urea nitrogen/Creatinine [Mass ratio] 11 No Units Normal 10-20 [facility] Comment on above: Performed By: #### 2 [id number] #### [facility] [address] [place] [address] CBC w/ Auto Diffon 5 Basophils/100 WBC (Bld) 0.2 % Normal 0.0-2.0 [facility] Comment on above: Performed By: #### 2 [id number] #### [facility] [address] [place] [address] Basophils/Leukocytes Auto (Bld) [Pure # fraction] 0.0 E9/L Normal 0.0-0.2 [facility] Comment on above: Performed By: #### 2 [id number] #### [facility] Laboratory [address] [place] [address] Eosinophils (Bld) [#/Vol] 0.0 E9/L Normal 0.0-0.5 [facility] Comment on above: Performed By: #### 2 [id number] #### [facility] [address] [place] [address] Eosinophils/100 WBC (Bld) 0.3 % Normal 0.0-8.0 [facility] Comment on above: Performed By: #### 2 [id number] #### [facility] [address] [place] [address] Erythrocyte distribution width (RBC) [Ratio] 16.0 % High 10.9-14.2 [facility] Comment on above: Performed By: #### 2 [id number] #### [facility] [address] [place] [address] Hematocrit (Bld) [Volume fraction] 39.5 % Normal 34.0-46.0 [facility] Comment on above: Performed By: #### 2 [id number] #### [facility] [address] [place] [address] Hemoglobin (Bld) [Mass/Vol] 13.8 g/dL Normal 12.0-16.0 [facility] Comment on above: Performed By: #### 2 [id number] #### [facility] [address] [place] [address] Lymphocytes (Bld) [#/Vol] 2.5 E9/L Normal 1.0-4.0 [facility] Comment on above: Performed By: #### 2 [id number] #### [facility] [address] [place] [address] Lymphocytes/100 WBC (Bld) 19.4 % Normal 14.0-50.0 [facility] Comment on above: Performed By: #### 2 [id number] #### [facility] [address] [place] [address] MCH (RBC) [Entitic mass] 28.7 pg Normal 27.0-34.0 [facility] Comment on above: Performed By: #### 2 [id number] #### [facility] [address] [place] [address] MCHC (RBC) [Mass/Vol] 34.9 g/dL Normal 31.4-36.0 [facility] Comment on above: Performed By: #### 2 [id number] #### [facility] [address] [place] [address] MCV (RBC) [Entitic vol] 82.0 fL Normal 80.0-100.0 [facility] Comment on above: Performed By: #### 2 [id number] #### [facility] [address] [place] [address] Monocytes (Bld) [#/Vol] 1.0 E9/L Normal 0.2-1.0 [facility] Comment on above: Performed By: #### 2 [id number] #### [facility] [address] [place] [address] Neutrophils (Bld) [#/Vol] 9.4 E9/L High 2.0-7.5 [facility] Comment on above: Performed By: #### 2 [id number] #### [facility] [address] [place] [address] Neutrophils/100 WBC (Bld) 72.3 % Normal 36.0-75.0 [facility] Comment on above: Performed By: #### 2 [id number] #### [facility] [address] [place] [address] Platelet 825.0 E9/L High 150.0-500.0 [facility] Comment on above: Result Comment: Cele pheral smear review performed. Performed By: #### 2 [id number] #### [facility] [address] [place] [address] Platelet mean volume (Bld) [Entitic vol] 6.7 fL Normal 6.4-10.8 [facility] Comment on above: Performed By: #### 2 [id number] #### [facility] [address] [place] [address] RBC (Bld) [#/Vol] 4.8 E12/L Normal 4.3-5.9 [facility] Comment on above: Performed By: #### 2 [id number] #### [facility] [address] [place] [address] WBC corrected for nucl RBC Auto (Bld) [#/Vol] 13.0 E9/L High 4.0-11.0 [facility] Comment on above: Performed By: #### 2 [id number] #### [facility] [address] [place] [address] CHEMISTRYOrdered By: SYSTEM SYSTEM on 10-02-2024 Albumin [Mass/Vol] 2.5 g/dL Low 3.3 - 5.0 gm/dL Remisol Chem Albumin/Globulin [Mass ratio] 0.6 {ratio} Low 1.1 - 2.2 Remisol Chem ALP [Catalytic activity/Vol] 185 [iU]/d High 21 - 98 Int._Unit/L Remisol Chem ALT No additional P-5'-P [Catalytic activity/Vol] 16 [iU]/d Normal 6 - 46 Int._Unit/L Remisol Chem Anion gap [Moles/Vol] 16 mmol/L Normal 6 - 16 mEq/L [facility] Chem AST [Catalytic activity/Vol] 26 [iU]/d Normal 5 - 43 Int._Unit/L Remisol Chem Bilirubin [Mass/Vol] 0.6 mg/dL Normal 0.0 - 1 .1 mg/dL Rem[facility] Chem Bilirubin.direct [Mass/Vol] 0.1 mg/dL Normal 0.0 - 0.4 mg/dL Remisol Chem Bilirubin.indirect [Mass or moles/Vol] 0.5 mg/dL Normal 0.1 - 0.9 mg/dL [facility] Chem Calcium [Mass/Vol] 8.1 mg/dL Low 8.9 - 11. 1 mg/dL [facility] Chem Chloride [Moles/Vol] 90 mmol/L Low 101 - 1 11 mmol/L Remisol Chem CO2 [Moles/Vol] 29 mmol/L Normal 21 - 31 mmol/L Remis ol Chem Creatinine [Mass/Vol] 0.7 mg/dL Normal 0.5 - 1.3 mg/dL [facility] Chem eGFR 120 mL/min/1.73 m2 Normal >=59mL/mi n/1.7 3 m2 [facility] Chem Globulin (S) [Mass/Vol] 4.4 g/dL High 1.4 - 4.0 gm/dL Rem[facility] Chem Glucose [Mass/Vol] 93 mg/dL Normal 55 - 199 mg/dL Re misol Chem Lipase [Catalytic activity/Vol] 9 U/L Low 13 - 58 unit/L Remisol Chem Potassium [Moles/Vol] 3.5 mmol/L Normal 3.5 - 5.3 mmol/L Remisol Chem Protein [Mass/Vol] 6.9 g/dL Normal 6.0 - 7.8 gm/dL Remisol Chem Sodium [Moles/Vol] 131 mmol/L Low 135 - 145 mmol/L Remisol Chem Troponin HS 7.10 pg/mL Low 10.10 - 27.10 pg/mL [facility] Comment on above: Interpretive Data: T he 95% CI (Confidence Interval) PPV (Positive Predictive Value) for myocardial infarction in females is 38 pg/mL, in males 51 pg/mL. The results should be used in conjunction with clinical conditions of myocardial infarction. (Access High Sensitivity Troponin I Instructions For Use, [employer], April 2018) Urea nitrogen [Mass/Vol] 8 mg/dL Normal 5 - 21 mg/dL Remisol Chem Urea nitrogen/Creatinine [Mass ratio] 11 mg/mg Normal 10 - 20 Remisol Chem Troponin HS 25.00 pg/mL Normal 10.10 - 27.10 pg/mL [facility] Comment on above: Interpretive Data: T he 95% CI (Confidence Interval) PPV (Positive Predictive Value) for myocardial infarction in females is 38 pg/mL, in males 51 pg/mL. The results should be used in conjunction with clinical conditions of myocardial infarction. (Access High Sensitivity Troponin I Instructions For Use, [employer], April 2018) CT Abdomen/Pelvis w/ Contras ton 10-02-2024 CT Abdomen/Pelvis w/ Contrast Exam Date/Time: 10/02/2024 15:56 EST Reason for Exam: ABDOMINAL PAIN, ACUTE, NONLOCALIZED;Other (please specify) Report IMPRESSION: NO ACUTE INTRA-ABDOMINAL PROCESS IDENTIFIED. EXAM: CT Abdomen/Pelvis w/ Contrast DATE: 10/02/2024 3:28 PM CLINICAL HISTORY: ABDOMINAL PAIN, ACUTE, NONLOCALIZED. COMPARISON: 07/13/2024. TECHNIQUE: Spiral imaging was obtained of the abdomen and pelvis after the uneventful infusion of approximately 100 mL of Isovue [address] scans at this facility use dose modulation, iterative reconstruction, and/or weight based dosing when appropriate to reduce radiation dose to as low as reasonably achievable. Unless otherwise stated, incidental findings identified in this report do not require routine follow-up imaging. FINDINGS: Perirectal bandlike soft tissue thickening, consistent with a fistula extending into the ischiorectal fossa, more prominently on the right. No organized fluid collection, or abnormal bowel dilatation, or other acute change from 07/13/2024 identified. Moderate hepatomegaly and steatosis, diffuse bowel wall thickening predominantly of the colon, a right lower quadrant ileostomy, and previous hysterectomy are again noted. Ordering Provider: Gadiel Vega FINAL REPORT Dictated: 10/02/2024 4:03 pm Dominic Pyle MD Signed (Electronic Signature): 10/02/2024 4:03 pm Signed by: Dominic Pyle MD Transcribed by: CLARICE Technologist: DPR Technical Comments GFR (mL/min/1/73m2) age Contrast: Isovue 300 Technical Comments Contrast amount in ml's: 100 Normal [facility] ED Clinical Summaryon 2024 ED Clinical Summary ED Clinical Summary [place] [id number] ED Clinical Summary Person Information Name: ROLA AGUILAR [facility] Age: 29 Years : 1995 Sex: Female Language: Iraqi PCP: NONE, XXXX Marital Status: Single Phone: Visit Id: Visit Reason: Abdominal pain; Diarrhea; Vomiting; ABD PAIN Speciality: Acuity: 2 Enc Type: Emergency Med Service: Emergency Arrival: 10/02/2024 13:52:15 Discharge: 10/02/2024 17:49:54 LOS: 000 03:57 Checkin: 10/02/2024 13:52:15 Checkout: 10/02/2024 17:49:54 Dispo Type: Home (Routine DC) EVENTS: Event Name Event Status Request Date/Time Start Date/Time Complete Date/Time Arrive Complete 10/02/2024 13:52:15 10/02/2024 13:52:15 10/02/2024 13:52:15 Document Home Meds Request 10/02/2024 13:52:15 Triage Complete 10/02/2024 13:52:15 10/02/2024 14:00:43 10/02/2024 14:00:43 Bed Assign Complete 10/02/2024 13:52:56 10/02/2024 13:52:56 10/02/2024 13:52:56 Dr Exam Complete 10/02/2024 13:52:56 10/02/2024 13:54:30 10/02/2024 13:54:30 RN Exam Complete 10/02/2024 13:52:56 10/02/2024 14:10:09 10/02/2024 14:10:09 Registration Complete 10/02/2024 13:54:30 10/02/2024 14:37:20 10/02/2024 14:37:20 Dr Exam Complete 10/02/2024 13:58:34 10/02/2024 13:58:34 10/02/2024 13:58:34 CT Complete 10/02/2024 14:15:21 10/02/2024 15:28:33 10/02/2024 15:56:12 Pending Labs Request 10/02/2024 14:15:21 Lab Complete 10/02/2024 14:15:21 10/02/2024 15:22:54 Meds Admin Complete 10/02/2024 14:15:21 10/02/2024 14:30:16 EKG Complete 10/02/2024 14:16:29 10/02/2024 14:26:02 Pending Labs Cancel 10/02/2024 14:17:46 10/02/2024 14:26:18 Pending Labs Cancel 10/02/2024 14:25:44 10/02/2024 14:25:44 10/02/2024 15:08:00 Lab Cancel 10/02/2024 14:25:44 10/02/2024 14:25:44 10/02/2024 15:08:00 Pending Labs Complete 10/02/2024 14:26:54 10/02/2024 14:26:54 10/02/2024 14:49:11 Pending Labs Complete 10/02/2024 14:30:35 10/02/2024 15:53:40 Reg Complete Request 10/02/2024 14:37:20 Reg Bed Request Complete 10/02/2024 14:37:20 10/02/2024 14:37:20 10/02/2024 14:37:20 Pending Labs Complete 10/02/2024 15:11:03 10/02/2024 15:46:46 Lab Complete 10/02/2024 15:11:03 10/02/2024 15:46:46 Pending Labs Complete 10/02/2024 15:20:26 10/02/2024 15:20:26 10/02/2024 15:46:46 Lab Complete 10/02/2024 15:20:26 10/02/2024 15:20:26 10/02/2024 15:46:46 Pending Labs Complete 10/02/2024 15:21:48 10/02/2024 15:21:48 10/02/2024 15:21:48 Possible SIRS Request 10/02/2024 15:25:26 Meds Admin Complete 10/02/2024 15:46:37 10/02/2024 16:00:40 Meds Admin Complete 10/02/2024 15:50:08 10/02/2024 16:00:40 Meds Admin Complete 10/02/2024 16:07:02 10/02/2024 16:30:49 Discharge Complete 10/02/2024 17:31:59 10/02/2024 17:50:10 10/02/2024 17:50:10 Transfer Complete 10/02/2024 17:50:10 10/02/2024 17:50:10 10/02/2024 17:50:10 ADDRESS: [address] [place] [phone] PHYS DOC NOTES: MEDICAL INFORMATION: Prescriptions Given: Medications to Continue Taking That Have Changed [facility]/pharmacy #[id number], [address], [place] [id number], [phone] START: ondansetron (ondansetron 4 mg Dis Tab) 1 Tablets By Mouth every 6 hours. Refills: 0. START: promethazine (promethazine 25 mg Tab) 1 Tablets By Mouth every 4 hours as needed for nausea/vomiting. Refills: 0. Other Medications START: ondansetron (Zofran 4 mg Tab) START: ondansetron (Zofran 4 mg Tab) 1 Tablets By Mouth every 8 hours as needed Nausea/Vomiting. Refills: 0. START: ondansetron (Zofran ODT 4 mg Tab-Dis) 1 Tablets By Mouth every 6 hours as needed Nausea/Vomiting. Refills: 0. START: ondansetron (Zofran ODT 4 mg Tab-Dis) 1 Tablets By Mouth every 8 hours. Refills: 0. START: ondansetron (Zofran ODT 4 mg Tab-Dis) 1 Tablets By Mouth every 8 hours. Refills: 0. START: ondansetron (Zofran ODT 4 mg Tab-Dis) 1 Tablets By Mouth every 8 hours as needed Nausea/Vomiting. Refills: 0. START: promethazine (promethazine 25 mg Tab) 1 Tablets By Mouth every 6 hours as needed as needed for nausea/vomiting. Refills: 0. Medications to Continue with No Changes Other Medications acetaminophen-oxycodon e (Percocet 5 mg-325 mg oral tablet) 1 Tablets By Mouth every 6 hours as needed as needed for pain. Refills: 0. cyproheptadine dicyclomine (Bentyl 10 mg Cap) 2 Capsules By Mouth 4 times a day. Refills: 0. hydrOXYzine (Vistaril 25 mg Tab) 1-2 tab(s) By Mouth 4 times a day as needed as needed for anxiety. Refills: 0. iron sucrose (Venofer) metoclopramide (metoclopramide 10 mg oral tablet, disintegrating) 1 Tablets By Mouth every 6 hours as needed Nausea/Vomiting. Refills: 0. metoclopramide (Reglan) predniSONE (predniSONE 10 mg Tab) as directed By Mouth As Directed. 6 tabs for 4 days,5 tabs for 4 days,4 tabs for 4 days,3 tabs for 4 days, then resume your maintenance 20 mg of prednisone.. Refills: 0. predniSONE (predniSONE 10 mg Tab) Take 6 tablets once a day for 4 days, then 5 tablets once a day for 4 days, then 4 tablets once a day for 4 days, then 3 tablets a (more content not included)... Normal [facility] ED Patient Summaryon 025 ED Patient Summary ED Patient Summary [place] [id number] Patient Discharge Instructions Person Information Name: ROLA AGUILAR Age: 29 Years Arrival Date: 10/02/2024 13:52:15 Discharge Diagnosis: Crohn's disease; Diarrhea; Nausea & vomiting Primary Care Physician: NONE, XXXX Provider Information Primary Provider: Harry Devine DO [employer] Operator:Gadiel Vega PA-C The exam and treatment you received in the Emergency Department were for an urgent problem and are not intended as complete care. It is important that you follow up with a doctor, nurse practitioner, or physician???s assistant professor surgical technology for ongoing care. If your symptoms become worse or you do not improve as expected and you are unable to reach your usual health care provider, you should return to the Emergency Department. We are available 24 hours a day. ROLA AGUILAR has been given the following list of patient education materials, prescriptions and follow-up instructions: Follow-up Instructions: With: Address: When: Gumaro Acevedo [address] [place] [id number] [phone] Business (1) In 3 days 10/05/2024 In the event that this physician does not participate in your insurance network, please consult with your insurance company to find a nearby participating provider. Patient Education Materials: Abdominal Pain, Adult; Crohn's Disease A MESSAGE TO ALL PATIENTS REGARDING OPIOIDS PRESCRIPTION OPIOIDS: WHAT YOU NEED TO KNOW Prescription opioids can be used to help relieve acmwsofu-gp-wdwdhd pain and are often prescribed following a surgery or injury, or for certain health conditions. These medications can be an important part of the treatment but also come with serious risks. It is important to work with your healthcare provider to make sure you are getting the safest, most effective care. WHAT ARE THE RISKS AND SIDE EFFECTS OF OPIOID USE? Prescription opioids carry serious risks of addiction and overdose, especially with prolonged use. An opioid overdose, often marked by slowed breathing, can cause sudden . The use of prescription opioids can have a number of side effects as well, even when taken as directed: ??? Tolerance???meaning you might need to take more of the medication for the same pain relief ??? Physical dependence???meaning you have symptoms of withdrawal when a medication is stopped ??? Increased sensitivity to pain ??? Constipation ??? Nausea, vomiting, and dry mouth ??? Sleepiness and dizziness ??? Confusion ??? Depression ??? Low levels of testosterone that can result in lower sex drive, energy, and strength ??? Itching and sweating RISKS ARE GREATER WITH: ??? History of drug misuse, substance use disorder, or overdose ??? Mental health conditions (such as depression or anxiety) ??? Sleep apnea ??? Older age (65 years and older) ??? Avoid alcohol while taking prescription opioids. Also, unless specifically advised by your health care provider, medications to avoid include: ??? Benzodiazepines (such as Xanax or Valium) ??? Muscle relaxants (such as Soma or Flexeril) ??? Hypnotics (such as Ambien or Lunesta) ??? Other prescription opioids KNOW YOUR OPTIONS Talk to your health care provider about ways to manage your pain that don???t involve prescription opioids. Some of these options may actually work better and have fewer risks and side effects. Options may include: ??? Pain relievers such as acetaminophen, ibuprofen, and naproxen ??? Some medication that are also used for depression or seizures ??? Physical therapy and exercise ??? Cognitive behavioral therapy, a psychological, goal-directed approach, in which patients learn how to modify physical, behavioral, and emotional triggers of pain and stress. IF YOU ARE PRESCRIBED OPIOIDS FOR PAIN: ??? Never take opioids in greater amounts or more often than prescribed. ??? Follow up with your primary health care provider. o Work together to create a plan on how to manage your pain. o Talk about ways to help manage your pain that don???t involve prescription opioids. o Talk about any and all concerns and side effects. ??? Help prevent misuse and abuse o Never sell or share prescription opioids. o Never use another person???s prescription opioids. ??? Store prescription opioids in a secure place and out of reach of others (this may include visitors, children, friends, and family). ??? Safely dispose of unused prescription opioids: Find your community drug take-back program or your pharmacy mail-back program, or flush them down the toilet, following guidance from the Food and Drug Administration (www.fda.gov/Drugs/Res ourcesForYou). ??? Visit www.cdc.gov/drugoverdo se to learn about the risks of opioids abuse and overdose. ??? If you believe you may be struggling with addiction, tell your h (more content not included)... Normal [facility] EMS Documentationon 10-02-19 25 EMS Documentation Report Please click on link to see report Normal [facility] Comment on above: Result Comment: Miss mulligan Attachment - total size limit for all attachments exceeded [email or web address] Can be viewed in source system Extra Roney 10-02-2024 WB Tube Collected Yes Invalid Interpretation Code [facility] Comment on above: Performed By: #### 1 [id number] #### [facility] Laboratory [address] [place] [address] HEMATOLOGYOrdered By: SYSTEM SYSTEM on 10-02-2024 Basophils/100 WBC (Bld) 0.2 % Normal 0.0 - 2.0 % Remisol Heme Basophils/Leukocytes Auto (Bld) [Pure # fraction] 0.0 E9/L Normal 0.0 - 0.2 E9/L Remisol Heme Eosinophils (Bld) [#/Vol] 0.0 E9/L Normal 0.0 - 0.5 E9/L Remisol Heme Eosinophils/100 WBC (Bld) 0.3 % Normal 0.0 - 8.0 % Remisol Heme Erythrocyte distribution width (RBC) [Ratio] 16.0 % High 10.9 - 14.2 % Remisol Heme Hematocrit (Bld) [Volume fraction] 39.5 % Normal 34.0 - 46.0 % Remisol Heme Hemoglobin (Bld) [Mass/Vol] 13.8 g/dL Normal 12.0 - 16.0 gm/dL Remisol Heme Lymphocytes (Bld) [#/Vol] 2.5 E9/L Normal 1.0 - 4.0 E9/L Remisol Heme Lymphocytes/100 WBC (Bld) 19.4 % Normal 14.0 - 50.0 % Remisol Heme MCH (RBC) [Entitic mass] 28.7 pg Normal 27.0 - 34.0 pg Remisol Heme MCHC (RBC) [Mass/Vol] 34.9 g/dL Normal 31.4 - 36.0 gm/dL Remisol Heme MCV (RBC) [Entitic vol] 82.0 fL Normal 80.0 - 100.0 fL Remisol Heme Monocytes (Bld) [#/Vol] 1.0 E9/L Normal 0.2 - 1.0 E9/L Remisol Heme Monocytes/100 WBC (Bld) 7.8 % Normal 4.0 - 14.0 % Remisol Heme Neutrophils (Bld) [#/Vol] 9.4 E9/L High 2.0 - 7.5 E9/L Remisol Heme Neutrophils/100 WBC (Bld) 72.3 % Normal 36.0 - 75.0 % Remisol Heme Platelet 825.0 E9/L High 150.0 - 500.0 E9/L [facility] Comment on above: Result Comment: Cele pheral smear review performed. Platelet mean volume (Bld) [Entitic vol] 6.7 fL Normal 6.4 - 10.8 fL Remisol Heme RBC (Bld) [#/Vol] 4.8 E12/L Normal 4.3 - 5.9 E12/L Remisol Heme WBC corrected for nucl RBC Auto (Bld) [#/Vol] 13.0 E9/L High 4.0 - 11.0 E9/L Remisol Heme Hep Func Panelon 10-02-2024 Albumin [Mass/Vol] 2.5 g/dL Low 3.3-5.0 [facility] Comment on above: Performed By: #### 2 [id number] #### [facility] [address] [place] [address] Albumin/Globulin (S) [Mass conc ratio] 0.6 Low 1.1-2.2 [facility] Comment on above: Performed By: #### 2 [id number] #### [facility] [address] [place] [address] ALP [Catalytic activity/Vol] 185 Int._Unit/L High 21-98 [facility] Comment on above: Performed By: #### 2 [id number] #### [facility] [address] [place] [address] ALT No additional P-5'-P [Catalytic activity/Vol] 16 Int._Unit/L Normal 6-46 [facility] Comment on above: Performed By: #### 2 [id number] #### [facility] [address] [place] [address] AST [Catalytic activity/Vol] 26 Int._Unit/L Normal 5-43 [facility] Comment on above: Performed By: #### 2 [id number] #### [facility] [address] [place] [address] Bilirubin [Mass/Vol] 0.6 mg/dL Normal 0.0-1.1 [facility] Comment on above: Performed By: #### 2 [id number] #### [facility] [address] [place] [address] Bilirubin.direct [Mass/Vol] 0.1 mg/dL Normal 0.0-0.4 [facility] Comment on above: Performed By: #### 2 [id number] #### [facility] [address] [place] [address] Bilirubin.indirect [Mass or moles/Vol] 0.5 mg/dL Normal 0.1-0.9 [facility] Comment on above: Performed By: #### 2 [id number] #### [facility] [address] [place] [address] Globulin (S) [Mass/Vol] 4.4 g/dL High 1.4-4.0 [facility] Comment on above: Performed By: #### 2 [id number] #### [facility] [address] [place] [address] Protein [Mass/Vol] 6.9 g/dL Normal 6.0-7.8 [facility] Comment on above: Performed By: #### 2 [id number] #### [facility] [address] [place] [address] Lipase Levelon 10-02-2024 Lipase [Catalytic activity/Vol] 9 U/L Low 13-58 [facility] Comment on above: Performed By: #### 2 [id number] #### [facility] [address] [place] [address] Pre-Arrival Noteon Pre-Arrival Note Pre-Arrival Note Pre-Arrival Summary Name: , ncems Current Date: 10/02/2024 13:53:11 EST Gender: Female Date of : Age: 29 Pre-Arrival Type: EMS ETA: 10/02/2024 14:16:00 EST Primary Care Physician: Presenting Problem: abd pain Pre-Arrival User: Katie Yates RN Referring Source: Location: [place] Completion Date/Time: 10/02/2024 13:46:00 [facility] Emergency Department Pre-Hospital Report Form Vital Signs: Pre-Hospital Report: abd pain, GI bleed, n/v for 3 days. tachy at 147s, glucose 119. 4 mg PO ZO Treatment in Route: Response to Treatment: Misc. Issues: Normal [facility] SEROLOGYOrdered By: Sherrell Mason on 10-02-2024 Beta HCG ( test) Ql Negative (10/02/24 2:31 PM) Normal [facility] Man Sero Troponin 0 Hr.on 10-02-2024 Troponin HS 25.00 pg/mL Normal 10.10-27.10 [facility] Comment on above: Result Comment: The 95% CI (Confidence Interval) PPV (Positive Predictive Value) for myocardial infarction in females is 38 pg/mL, in males 51 pg/mL. The results should be used in conjunction with clinical conditions of myocardial infarction. (Access High Sensitivity Troponin I Instructions For Use, [employer], April 2018) Performed By: #### 1 [id number] #### [facility] [address] [place] [address] Troponin 1 Hr.on 10-02-2024 Troponin HS 7.10 pg/mL Low 10.10-27.10 [facility] Comment on above: Order Comment: [id number] Result Comment: The 95% CI (Confidence Interval) PPV (Positive Predictive Value) for myocardial infarction in females is 38 pg/mL, in males 51 pg/mL. The results should be used in conjunction with clinical conditions of myocardial infarction. (Access High Sensitivity Troponin I Instructions For Use, [employer], April 2018) Performed By: #### 1 [id number] #### [facility] [address] [place] [address] eGFRon 10-02-2024 eGFR 120 mL/min/1.73 m2 Normal >=59 [facility] Comment on above: Performed By: #### 1 [id number] #### [facility] [address] [place] [address] [facility] ROLA AGUILAR ([id number]) 1995 F Date Time Provider Department 08/12/24 LEE ANN HUMPHRIES [facility] During your visit today, we recorded the following information about you: Heather Leary RN 08/12/2024 2:49 PM Signed Attempted to call patient. Left detailed VM for patient to call [facility] at [phone] SHAHBAZ Rosado Rebecca Lee Ann Shahid DO; Heather Leary RN Noted, thank you! I'll keep trying to reach her. Amina ----- Message ----- From: Lee Ann Humphries DO Sent: 08/12/2024 11:25 AM EST To: Heather Leary RN; Zaira Campbell RPh Yes, she should still continue her Entyvio after surgery. I will have our office try to reach out to her as well. Thank you for the update. Lee Ann Humphries DO ----- Message ----- From: Zaira Campbell RPh Sent: 08/12/2024 11:19 AM EST To: DO Christelle Guillaume Dr., [facility] has been unable to reach patient to set up Entyvio refill shipment after several attempts. Is she continuing Entyvio at this time? I see that she had surgery a few weeks ago. Amina Parry Allergies As of Date: 08/12/2024 Noted Allergy Reaction HYDROMORPHONE 05/26/2023 9 - Itching Date Reviewed: 07/20/2024 Reviewed by: Rosalba Petersen, SHAHBAZ - Fully Assessed Prescriptions as of 08/12/2024 - vedolizumab (ENTYVIO PEN) 108 mg/0.68 mL pen Inject 108mg (1 pen) subcutaneously every other week. - vedolizumab (ENTYVIO PEN) 108 mg/0.68 mL pen Inject 108 mg (1 pen) subcutaneously every other week. Problem List As Of Date 08/12/2024 Noted Resolved Crohn's disease (regional enteritis) (HCC) [K50*08/22/2018 02/04/2023 Abdominal pain [R10.9] 09/10/2018 01/21/2023 Hypomagnesemia [E83.42] 09/11/2018 09/12/2018 Hyponatremia [E87.1] 09/11/2018 09/12/2018 Perineal abscess [L02.215] 09/09/2018 Malnutrition of mild degree (HCC) [E44.1] 09/11/2018 Hypokalemia [E87.6] 09/12/2018 Crohn's colitis (HCC) [K50.10] 09/09/2018 02/04/2023 Obesity, Class II, BMI 35-39.9 [E66.812] 08/26/2020 History of creation of ostomy (HCC) [Z93.9] 01/22/2021 Crohn's disease of colon with complication (HCC*01/17/2023 History of endoscopy [Z98.890] 02/04/2023 07/04/2023 Imaging of gastrointestinal tract abnormal [R93*02/04/2023 13 weeks gestation of [Z3A.13] 04/30/2023 07/04/2023 Maternal Crohn's disease affecting in*04/30/2023 10/24/2023 Obesity, Class I, BMI 30-34.9 [E66.811] 05/01/2023 Anxiety and depression [F41.9, F32.A] 07/04/2023 Abdominal pain affecting [O26.899, R1*07/26/2023 10/27/2023 25 weeks gestation of [Z3A.25] 07/27/2023 08/01/2023 General counseling and advice for contraceptive*08/01/20 23 10/24/2023 Abdominal pain [R10.9] 08/19/2023 10/27/2023 Crohn's disease of small and large intestines w*08/20/2023 Crohn's disease of large intestine without comp*08/21/2023 Maternal Crohn's disease affecting in*08/23/2023 10/24/2023 29 weeks gestation of [Z3A.29] 08/23/2023 09/05/2023 Anemia during in third trimester [O99*09/05/2023 10/24/2023 Maternal iron deficiency anemia complicating pr*09/13/2023 Impaired intestinal absorption [K90.9] 09/13/2023 Non-reassuring status, delivered, current*10/24/2023 10/27/2023 care following delivery [Z3*10/24/2023 Maternal Crohn's disease (HCC) [O99.619, K50.90]10/24/2023 Ileostomy prolapse (HCC) [K94.19] 10/24/2023 Unwanted fertility [Z30.09] 10/24/2023 10/27/2023 Rubella non-immune status, delivered, current h*10/25/2023 10/27/2023 ABLA (acute blood loss anemia) [D62] 10/25/2023 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) [K5*01/18/[address] (HCC) [Z93.2] 01/18/2024 Generalized abdominal pain [R10.84] 01/20/2024 Encounter Status:Closed by HEATHER LEARY on 08/12/24 [facility] ANES POSTPROC EVALon 07-20-2 024 ANES POSTPROC EVAL HNO ID: [id number] Author: RADHA ARNOLD MD Service: Anesthesiology Author Type: Anesthesiologist Type: Anesthesia Postprocedure Evaluation Filed: 07/20/2024 14:08 Note Text: POST ANESTHESIA EVALUATION NOTE : 1995 Procedure Summary Date: 07/20/24 Room / Location: OR / OR Anesthesia Start: 1229 Anesthesia Stop: 1324 Procedures: EXAM UNDER ANESTHESIA RECTAL (Anus) FISTULOTOMY ANAL SUBCUTANEOUS (Anus) INCISION AND DRAINAGE ABSCESS PERINEAL (Anus) PLACEMENT OF SETON (Anus) Diagnosis: Perianal fistula Perianal abscess (Perianal fistula [K60.30]) (Perianal abscess [K61.0]) Surgeons: Shaq Thakkar MD Responsible Provider: Radha Arnold MD Anesthesia Type: general ASA Status: 2 Anesthesia Type: general Airway Type: LMA Last Vitals Vitals Value Taken Time BP 104/79 07/20/24 1400 Temp 07/20/24 1407 Pulse 86 07/20/24 1407 Resp 12 07/20/24 1407 SpO2 98 % 07/20/24 1407 Vitals shown include unfiled device data. Post Anesthesia Patient Status Patient Evaluation: PACU. PACU/ICU Patient Condition: stable. Anticipated Disposition: phase 2 then home. Neurological Status: aware and responsive. Pulmonary Status: breathing comfortably on room air Airway Control: returned to baseline unsupported. Cardiovascular Status: stable. Pain Management: clinically adequate - multimodal analgesia pain management approach Postoperative Hydration: acceptable. Intraoperative Events: no significant anesthesia events Post Operative Nausea/Vomiting Status: no significant post operative nausea or vomiting Recommendation: continue current plan of care. Anesthesia Observations No Documentation SIGNATURE: Radha Arnold MD PATIENT NAME: Rola Aguilar DATE: July 20, 2024 TIME: 2:07 PM CSN: [id number] [facility] ANES PRE-OPon 07-20-2024 ANES PRE-OP HNO ID: [id number] Author: RADHA ARNOLD MD Service: Anesthesiology Author Type: Anesthesiologist Type: Anesthesia Preprocedure Evaluation Filed: 07/20/2024 11:04 Note Text: ANESTHESIOLOGY DAY OF SURGERY NOTE : 1995 Procedure Information Date/Time: 07/20/24 1200 Procedures: EXAM UNDER ANESTHESIA RECTAL (Anus) - PAT on arrival FISTULOTOMY ANAL SUBCUTANEOUS (Anus) INCISION AND DRAINAGE ABSCESS PERINEAL (Anus) PLACEMENT OF SETON (Anus) Location: [facility] OR11 / [facility] OR Surgeons: Shaq Thakkar MD Estimated body mass index is 22.79 kg/m? as calculated from the following: Height as of 02/25/24: 167.2 cm (5' 5.83 ). Weight as of 07/17/24: 63.7 kg (140 lb 6.9 oz). Most recent hematocrit and potassium results: Hematocrit 32.7 01/19/2024 Potassium 4.2 01/19/2024 Relevant Problems No relevant active problems I - PHYSICAL EVALUATION AIRWAY Patient intubated: No. Tracheostomy tube not present Mallampati: II. TM distance: >3 FB. Neck ROM: full ROM without neurological symptoms. Mouth opening: adequate. Short neck: no. Thick neck: no DENTAL Dental findings: poor dentition and broken tooth. Additional exam findings: no II - ANESTHESIA PLAN ASA Score: 2 Anesthetic Plan: general Airway type: LMA The patient is not a current smoker. NPO Status: adequate Beta Olena Monitoring Plan Monitoring plan: standard ASA. Post Procedure Analgesic Plan Postoperative analgesic plan: multimodal analgesia and parenteral or oral opioids. Informed Consent Anesthetic risks, benefits, alternatives, personnel and consent discussed: yes. Patient / Responsible Republican agrees to proceed: yes Patient / Surrogate agrees to blood products: Yes Vitals Value Taken Time BP 116/65 07/20/24 1041 Pulse 130 07/20/24 1041 Resp 16 07/20/24 1041 Temp 36.8 ?C (98.2 ?F) 07/20/24 1041 SpO2 96 % 07/20/24 1041 Facility-Administered Medications as of 07/20/2024 Medication Dose Route Frequency lidocaine (PF) 10 mg/mL (1 %) 1-2 mg injection (XYLOCAINE) 0.1-0.2 mL INTRADERMAL PRN NaCl 0.9% iv flush bag 20 mL INTRAVENOUS PRN [COMPLETED] acetaminophen 1,000 mg tab(s) (TYLENOL) 1,000 mg ORAL ONCE [COMPLETED] promethazine 12.5 mg tab(s) (PHENERGAN) 12.5 mg ORAL NOW scopolamine (delivers 1 mg over 3 days) 1 Patch (TRANSDERM-SCOP) 1 Patch TRANSDERMAL q 72 HR And [START ON 07/23/2024] scopolamine - REMOVE PATCH OTHER q 72 HR And scopolamine - VERIFY patch OTHER q 8 H Outpatient Medications as of 07/20/2024 Medication Sig vedolizumab (ENTYVIO PEN) 108 mg/0.68 mL pen Inject 108 mg (1 pen) subcutaneously every other week. vedolizumab (ENTYVIO PEN) 108 mg/0.68 mL pen Inject 108mg (1 pen) subcutaneously every other week. I have interviewed and examined the patient. I have reviewed the medical record and/or the pre-anesthesia evaluation, pertinent labs, and test results. This contains updated information obtained within 48 hours of Surgery/Procedure. SIGNATURE: Radha Arnold MD PATIENT NAME: Rola Aguilar DATE: July 20, 2024 TIME: 11:04 AM CSN: [id number] Normal [facility] B-HCG SerPl-aCncon 4 HCG.beta subunit Qn m[IU]/mL Normal <5.0 [facility] Comment on above: Order Comment: Speci men Type: BLOOD SPECIMEN Ordering Facility: [facility] Address: [address] [place] [address] Result Comment: Nega tive Performed By: #### 2 4323-8, 3040-3 #### [facility] CLIA [id number] [place] [address] [place] Bacteria Wnd Culton 07-20-20 24 Bacteria identified Cx Nom (Wound) ORGANISM ID: 1 Rare Eikenella corrodens No further workup BLACT: Negative ORGANISM ID: 2 Few skin jaden GRAM STAIN: Few Gram positive cocci Few Gram negative bacilli Rare Gram positive bacilli Moderate Polymorphonuclear leukocytes Abnormal [facility] Comment on above: Performed By: #### 6 [id number] ####[facility] LABCLIA [id number] [facility] [id number], [place] [address] [place] HISTORY PHYSICALon 4 HISTORY PHYSICAL HNO ID: [id number] Author: SHAQ THAKKAR MD Service: Colorectal Author Type: Resident Type: H&P Filed: 07/27/2024 11:06 Note Text: Attestation signed by Shaq Thakkar MD at 07/27/2024 11:06 AM Hp COLORECTAL SURGERY HISTORY AND PHYSICAL EXAMINATION SERVICE DATE: 07/20/2024 SERVICE TIME: 12:14 PM PRIMARY CARE PHYSICIAN: Kale Rendon MD The patient has the following: ACTIVE PROBLEM LIST Perineal Abscess Malnutrition of Mild Degree (Hcc) Hypokalemia Obesity, Class II, Bmi 35-39.9 History of Creation of Ostomy (Hcc) Crohn's Disease of Colon With Complication (Hcc) Imaging of Gastrointestinal Tract Abnormal Obesity, Class I, Bmi 30-34.9 Anxiety and Depression Crohn's Disease of Small and Large Intestines With Complication (Hcc) Crohn's Disease of Large Intestine Without Complication (Hcc) Maternal Iron Deficiency Anemia Complicating , Third Trimester Impaired Intestinal Absorption Care Following Delivery Maternal Crohn's Disease (Hcc) Ileostomy Prolapse (Hcc) Abla (Acute Blood Loss Anemia) Crohn's Disease of Colon With Fistula (Hcc) Ileostomy in Place (Hcc) Generalized Abdominal Pain SUBJECTIVE CHIEF COMPLAINT: perianal fistula HPI: 28 Y/O F w/ PMHx s/f Crohn's disease c/b perianal fistula s/p DLI (2018) p/w new onset perianal pain and drainage c/f new abscess vs fistula formation. PAST MEDICAL HISTORY Diagnosis Date Crohn's disease (HCC) History of transfusion 2017 anemia noted prior to surgery Migraine with aura Perianal abscess Seasonal allergies PAST SURGICAL HISTORY Procedure Laterality Date COLONOSCOPY GEN ANES 10/20/2020 EXCISION PILONIDAL CYST/SINUS SIMPLE 06/2016 PAST SURGICAL HISTORY OF 09/10/2018 Laparoscopic creation of diverting loop ileostomy, laparoscopic TAP block, examination under anesthesia with flexible sigmoidoscopy with biopsies, incision and drainage of complex perianal and supralevator abscesses with drain and seton placement. PAST SURGICAL HISTORY OF 08/26/2018 Exam under anesthesia, flexible sigmoidoscopy, incision and drainage of deep postanal space abscess, seton and drain placement. PAST SURGICAL HISTORY OF iliostomy FAMILY HISTORY Problem Relation Age of Onset Hodgkin Lymphoma Mother NON hodgkin Colon Cancer Other SOCIAL HISTORY: Social History Tobacco Use Smoking status: Former Current packs/day: 0.50 Types: Cigarettes Smokeless tobacco: Never Tobacco comments: 3 per day Vaping Use Vaping status: Never Used Substance Use Topics Alcohol use: Not Currently Comment: 1 per week Drug use: No MEDICATIONS: Prior to Admission medications as of 02/25/24 1447 Medication Sig Last Dose Taking vedolizumab (ENTYVIO PEN) 108 mg/0.68 mL pen Inject 108 mg (1 pen) subcutaneously every other week. Past Week Yes vedolizumab (ENTYVIO PEN) 108 mg/0.68 mL pen Inject 108mg (1 pen) subcutaneously every other week. No medication comments found. CURRENT ALLERGIES: ALLERGIES Allergen Reactions Hydromorphone Itching REVIEW OF SYSTEMS: GENERAL: Denies fever, chills, night sweats, or changes in weight. DERM: Denies any new skin conditions, rashes or changing moles. EYES: Denies recent visual changes. ENT: Denies hearing loss or tinnitus RESP: Denies any cough, dyspnea, or wheezing. CV: Denies any chest pain with exertion or at rest, palpitations, syncope, or edema. GI: Positive for perianal pain AND drainage : Denies dysuria, frequency, nocturia, hematuria MUSCULOSKELETAL: Denies any joint swelling, joint pain, or loss of range of motion., Denies back pain. NEURO: Denies any headaches, tremors, dizziness, vertigo, memory loss, confusion., Denies weakness, numbness or tingling. PSYCH: Denies any anxiety or depression. HEME/LYMPHATIC/IMMUNO: Denies anemia, bruising, bleeding abnormalities. ENDO: Denies any heat or cold intolerance, polyuria or polydipsia. PHYSICAL EXAM: VITALS: BP 116/65 Pulse 130 Temp (Src) 98.2 (Temporal) Resp 16 SpO2 96% LMP 06/29/2024 O2 Therapy: Room Air General: Alert and oriented, No acute distress Skin: Normal color, no rash, no lesions. HEENT: EOM, pupils equal, round and reactive. Cardiovascular: Normal S1 AND S2, no rubs, murmurs or gallops. No JVD. Pulse regular. Lungs: Normal breath sounds, no wheezes or crackles. Abdomen: Soft, nondistended, ostomy - mucosa pink and healthy Extremities: No deformity, no edema or tenderness, no joint swelling or clubbing. Neurological: Normal cognition and motor skills. LABS IMAGING ASSESSMENT AND PLAN 28 Y/O F w/ PMHx s/f Crohn's disease c/b perianal fistula s/p DLI (2018) p/w new onset perianal pain and drainage c/f new abscess vs fistula formation. - OR for EUA, possi (more content not included)... [facility] NURSING PROGon 07-20-2024 NURSING PROG HNO ID: [id number] Author: FRANCISCO BENAVIDEZ RN Service: Nursing Author Type: Registered Nurse Type: Nursing Progress Note Filed: 07/20/2024 10:29 Note Text: READINESS TO LEARN COGNITIVE ABILITY: Alert and oriented MOTIVATION TO LEARN: Interested FAMILY SUPPORT: Unable to assess - Family not present INSTRUCTION PROVIDED TO: Patient PATIENT LEARNS BEST BY: Individual Instruction FACTORS AFFECTING LEARNING: None PHYSICAL LIMITATIONS AFFECTING LEARNING: None LEARNING RESPONSE DIAGNOSIS: ADULT: Well Adult PATIENT/FAMILY RESPONSE: Verbalizes understanding of: PRE-OPERATIVE INSTRUCTIONS-Correct action to take to follow pre-operative instructions METHOD OF INSTRUCTION: Individual instruction FOLLOW-UP PLAN: Patient instructed to call with any further issues INSTRUCTIONAL AIDS USED: NA SUPPLEMENTAL MATERIAL PROVIDED TO PATIENT: None REFERRAL (RECOMMENDATION): None Electronically Signed By: Francisco Benavidez [facility] OPERATIVE NOon 07-20-2024 OPERATIVE NO HNO ID: [id number] Author: SHAQ THAKKAR MD Service: Colorectal Author Type: Physician Type: Operative Report Filed: 07/23/2024 08:03 Note Text: OPERATIVE/PROCEDURE REPORT LOG ID: [id number] SURGERY/PROCEDURE DATE: 07/20/2024 INCISION/PROCEDURE START TIME: 12:51 PM INCISION CLOSE/PROCEDURE END TIME: 1:10 PM SURGEON(S)/PROCEDURALI ST(S) AND ROLL OUT MANAGER(S): Surgeons and Role: * Shaq Thakkar MD - Primary * Candelario Araya MD - Resident - Assisting No Additional Staff PRE-OP/PRE-PROCEDURE DIAGNOSIS: Crohn's Disease, Perianal Abscess AND Fistula POST-OP/POST-PROCEDURE DIAGNOSIS: Same SURGERY/PROCEDURE(S): Anorectal exam under anesthesia Incision and drainage of perianal abscess Placement of evan through fistula tract ANESTHESIA: General FINDINGS: - Large abscess cavity in the ischiorectal space with fistulization to the rectum at the 7-8 o'clock position INDICATION: Rola Aguilar is a 28 year old who presented to the office for evaluation of a possible perianal abscess and anal fistula. After discussion and examination, I recommended an exam under anesthesia with incision and drainage of abscess as well as possible fistulotomy versus seton placement. SURGERY/PROCEDURE DETAILS: The patient was taken to the operating room and placed under anesthesia. Patient was positioned in lithotomy position. The perineum was prepped and draped in normal sterile fashion. We began with examination of the perianal skin and rectal exam. On rectal exam, rectal stenosis was noted as well as a previously placed seton through prior fistula tract. On external exam, there was an external opening in the 7-8 o'clock position that was spontaneously draining purulent fluid. The indurated area was palpated and after determining a central area of fluctuance, 5 cc of 0.5% Bupivacaine was injected. Using electrocautery, a 2 cm incision was made and purulent fluid immediately started draining. A wound culture was sent and then the remaining fluid was evacuated, using blunt dissection to break up loculations and aide fluid evaluation. The mera was then used to demonstrate the fistula tract - once the instrument tip passed through the external opening of the fistula, a evan was placed through the abscess cavity and tied into a loop using 0 silk ties. Hemostasis was achieved using electrocautery. It was noted that she was having some superficial bleeding per rectum, thus gelfoam thrombin was packed into the rectum and pressure was held. Once satisfactory hemostasis was achieved, the remaining 0.5% Bupivacaine was injected for total of 30 cc. Dry sterile dressing was applied. The patient was awoken from anesthesia and taken to the recovery room. ESTIMATED BLOOD LOSS: 15 mls SPECIMENS: None IMPLANTABLE DEVICES: [place] DRAINS: None COMPLICATIONS: None PARTICIPATION IN SURGERY/PROCEDURE: I/primary surgeon/proceduralist performed the procedure with assistance. On behalf of: Shaq Thakkar MD SIGNATURE: Candelario Araya MD PATIENT NAME: Rola Aguilar DATE: July 20, 2024 TIME: 1:51 PM Normal [facility] OPERATIVE NO HNO ID: [id number] Author: SHAQ THAKKAR MD Service: Colorectal Author Type: Physician Type: Operative Report Filed: 07/23/2024 08:01 Note Text: [facility] - Operative Report ROLA AGUILAR : 1995 AGE: 28. SEX: F PATIENT TYPE: A HOSP SVC: CRS LOCATION: [facility] ATTENDING PHYSICIAN: Shaq Thakkar M.D. CSN NUMBER: [id number] DATE OF SURGERY/PROCEDURE: 07/20/2024 INCISION/PROCEDURE START TIME: 12:51 PM INCISION CLOSE/PROCEDURE END TIME: 1:10 PM PREOPERATIVE DIAGNOSIS: Crohn disease, anorectal abscess. POSTOPERATIVE DIAGNOSIS: Crohn disease, anorectal abscess. SURGEON: Shaq Thakkar M.D. ROLL OUT MANAGER: Deidra. SURGERY/PROCEDURE: Incision and drainage of the anorectal abscess, seton fistulotomy. ANESTHESIA: General ESTIMATED BLOOD LOSS: 5. INTRAVENOUS FLUIDS: Per Anesthesia. DESCRIPTION OF PROCEDURE: Patient was brought to the operating room and placed in lithotomy position. The anorectal region was prepped and draped in standard surgical fashion. In the right posterolateral region and the ischioanal fossa, there was substantial fluctuance. A 1 cm incision was made in the inferior portion of the fluctuance and we obtained copious amount of purulent material that was cultured and drained. This communication was openly communicating with the posterior midline prior secondary opening her seton site and we placed a quarter- inch [place] between the 2 to facilitate additional drainage. There was no real clear communication from that to the anal canal this time other than diego anal stenosis that was gently dilated and therefore just the draining seton was placed. We injected 40 mL of local at the end of the case. We ensured we had adequate hemostasis and she transferred to recovery room in great condition. Shaq Thakkar M.D. BC:[id number] /[id number] [facility] ROLA AGUILAR ([id number]) 1995 F Date Time Provider Department 07/17/24 10:15 AM SHAQ THAKKAR [facility] During your visit today, we recorded the following information about you: Blood pressure Weight 107/67 63.7 kg Shaq Thakkar MD 07/26/2024 7:16 PM Signed COLORECTAL SURGERY July 17, 2024 Rola Quintanillayeni 28 year old Chief Complaint: crohn's disease with perianal fistula History of Present Illness: Rola Aguilar is a 28 year old female who presents to the office for evaluation of crohn's disease with perianal fistula. She was last seen in the office on 10/18/23. 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 She has been on humira, stellara and is currently on Entyvio. She is under the care of Dr Lee Ann Humphries. Ileoscopy on 01/20/24: - Crohn's disease with ileitis. Inflammation was found. This was mild in severity. Biopsied Colonoscopy on 01/20/24: - Perianal fistula and anal canal stenosis found on perianal exam. - Stricture in the sigmoid colon. - Crohn's disease. Inflammation was found from the anus to the sigmoid colon. This was moderate in severity, unchanged compared to previous examinations. Biopsied Pathology: A. Small bowel, ileum, biopsy: - Chronic minimally inflamed enteritis; negative for pyloric gland metaplasia or dysplasia. B. Colon, rectosigmoid, biopsy: - Chronic mildly inflamed colitis; negative for dysplasia CT Abdomen/pelvis on 01/18/24 IMPRESSION: Diffuse colonic wall thickening and pericolonic stranding changes consistent with colitis. Partially imaged seton in the perianal region Prior A/P from 10/18/23: Rola Aguilar is a 28 year old female with a diverting ostomy (Crohn's) and in her third trimester. Today we discussed her ostomy output and how to stay hydrated for the rest of her . She will see me or Dr Tai 3 months post-operatively to discuss reversal and also establish care with Dr Villa for GI. PAST MEDICAL HISTORY Diagnosis Date Crohn's disease (HCC) History of transfusion 2017 anemia noted prior to surgery Migraine with aura Perianal abscess Seasonal allergies PAST SURGICAL HISTORY Procedure Laterality Date COLONOSCOPY GEN ANES 10/20/2020 EXCISION PILONIDAL CYST/SINUS SIMPLE 06/2016 PAST SURGICAL HISTORY OF 09/10/2018 Laparoscopic creation of diverting loop ileostomy, laparoscopic TAP block, examination under anesthesia with flexible sigmoidoscopy with biopsies, incision and drainage of complex perianal and supralevator abscesses with drain and seton placement. PAST SURGICAL HISTORY OF 08/26/2018 Exam under anesthesia, flexible sigmoidoscopy, incision and drainage of deep postanal space abscess, seton and drain placement. PAST SURGICAL HISTORY OF iliostomy Current Outpatient Medications Medication Sig Dispense Refill vedolizumab (ENTYVIO PEN) 108 mg/0.68 mL pen Inject 108mg (1 pen) subcutaneously every other week. 1.36 mL 0 vedolizumab (ENTYVIO PEN) 108 mg/0.68 mL pen Inject 108 mg (1 pen) subcutaneously every other week. 2 Each 11 No current facility-administered medications for this visit. ALLERGIES Allergen Reactions Hydromorphone Itching FAMILY HISTORY Problem Relation Age of Onset Hodgkin Lymphoma Mother NON hodgkin Colon Cancer Other Social History Tobacco Use Smoking status: Former Current packs/day: 0.50 Types: Cigarettes Smokeless tobacco: Never Tobacco comments: 3 per day Vaping Use Vaping status: Never Used Substance Use Topics Alcohol use: Not Currently Comment: 1 per week Drug use: No Physical Exam: LMP 01/30/2023 (Exact Date) General Appearance: Well appearing, alert, in no acute distress, well-hydrated, well nourished. Skin: Skin color, texture, turgor normal Head: Normocephalic Oropharynx: Lips, mucosa, and tongue normal Neck: Supple Lungs: breathing unlabored on room air Extremities: No deformities, no weakness Neuro: Gait normal Abdomen: Normal abdominal exam Anorectal: External exam reveals: see below Journeyman Machinist present: yes The sensitive examination was discussed with the Patient or Patient's Authorized Oncology Account Specialist. As applicable, any other physician, advance practice provider, medical student, or other health professional student that will be observing or involved in the sensitive examination for educational or training purposes was discussed with the Patient or Authorized Oncology Account Specialist. The Patient or Authorized Oncology Account Specialist has agreed to proceed with the sensitive examination. (Sensitive examination includes inspection and/or palpation of the breasts, pelvis, prostate and anorectal regions) Assessment Assessment and Plan: Rola Aguilar is a 28 year old female with a pa (more content not included)... Normal [facility] CT Abdomen/Pelvis w/ Contras ton 07-14-2024 CT Abdomen/Pelvis w/ Contrast Exam Date/Time: 07/13/2024 20:28 EDT Reason for Exam: ABDOMINAL PAIN, ACUTE, NONLOCALIZED;Other (please specify) Report IMPRESSION: DIFFUSE WALL THICKENING, AND PERICOLONIC INFLAMMATORY CHANGE, CECUM THROUGH RECTUM, GREATEST IN DISTAL DESCENDING COLON. FINDING MOST CONSISTENT WITH INFLAMMATORY, OR INFECTIOUS ETIOLOGY. LOOP COLOSTOMY. HEPATIC STEATOSIS. SPLENOMEGALY CT OF THE ABDOMEN AND PELVIS WITH INTRAVENOUS CONTRAST MEDIUM. History: ABDOMINAL PAIN, ACUTE, NONLOCALIZED. Technical Factors: CT imaging of the abdomen and pelvis were obtained and formatted as 5 mm contiguous axial images from the domes of the diaphragm to the symphysis pubis. Sagittal and coronal reconstructions were also obtained. Oral contrast medium: None. Intravenous contrast medium: Isovue-300, 100 mL. Comparison: 06/30/2024 Findings: Lower chest: Cardiac size normal. No pericardial effusion. No coronary artery calcification. Lung bases clear. Liver: Normal in size, shape, and increased in attenuation. Bile Ducts: Normal in caliber. Gallbladder: No stones or wall thickening. Pancreas: Normal without masses, cysts, ductal dilatation or calcification. Spleen: Enlarged with AP diameter 14.4 cm. No masses or calcifications. No splenules. Kidneys: Normal in size and enhancement. No hydronephrosis, masses, or stones. Adrenals: Normal. Small bowel: Normal in caliber. Appendix: Normal. Report Colon: Limited colostomy transverse colon, exiting right upper anterior abdominal wall. No dilatation. Circumferential wall thickening from ascending colon through rectum. Pericolonic fat stranding diffusely identified, greatest in distal descending colon (series 2, image 81), unchanged. Peritoneum: No ascites, free air, or fluid collections. Vessels: Aorta normal in course and caliber. Portal vein, splenic vein, superior mesenteric vein are patent. Lymph nodes: Retroperitoneal: No enlarged retroperitoneal lymph nodes. Mesenteric: No enlarged mesenteric lymph nodes. Pelvic: No enlarged pelvic lymph nodes. Ureters: Normal in course and caliber. No calcifications. Bladder: Decompressed. Reproductive organs: No pelvic masses. Abdominal Wall: No hernia identified. No diastasis of rectus musculature. No edema or masses. Bones: No bone lesions. No degenerative changes. No post operative changes. All CT scans at this facility use dose modulation, iterative reconstruction, and/or weight based dosing when appropriate to reduce radiation dose to as low as reasonably achievable. Ordering Provider: Wil Chandler FINAL REPORT Dictated: 07/14/2024 9:04 am Anshul Cardoza MD Signed (Electronic Signature): 07/14/2024 9:04 am Signed by: Anshul Cardoza MD Transcribed by: CLARICE Technologist: ALEC Technical Comments GFR (mL/min/1/73m2) age Contrast: Isovue 300 Contrast amount in ml's: 100 Oral contrast amount in ml's: 0 Normal [facility] ED Note-Physicianon 07-14-20 ED Note-Physician ED Note-Physician Basic Information Time Seen: Wil Chandler PA-C 07/13/2024 18:42 Chief Complaint possible Chrons flare, abdominal pain, n/v. has known cele-anal abscess and fistula awaiting f/u with surgeon on saturday. c/o weakness, chills. History of Present Illness A 28-year-old female reports emergency department with complaints of a Crohn's flareup. Reports abdominal pain, nausea and vomiting. Reports that she has a known perianal abscess, and the fistula is following up with the surgeon on Saturday. Reports he just feels terrible. Reports that the pain is getting worse want something for pain that she cannot continue like this. Denies any allergies. Reports that she is on a biologic for her symptoms currently and her Crohn's. Denies any steroid use recently. Denies any fevers or chills. Afebrile Review of Systems No other aggravating or relieving factors no other associated symptoms no other prior treatments or complaints. Family: Reviewed and noncontributory Social: lives at home Review of systems negative unless otherwise specified in the HPI. Physical Exam Vitals & Measurements T: 36.9 ???C(Oral) HR: 100(Monitored) RR: 15 BP: 119/84 SpO2: 96% HT: 167 cm WT: 63.6 kg BMI: 22.8 General: The patient appears well and in no apparent distress. Patient is resting comfortably on bed. Afebrile Skin: Warm, dry, no pallor noted. Head: Normocephalic, atraumatic Neck: No JVD Eye: PERRLA, EOMI ENT: Moist mucus membranes Cardiovascular: Regular rate normal peripheral perfusion Respiratory: No respiratory distress no accessory muscle use no obvious audible wheezing. Lung sounds clear. Chest Wall: no deformity Musculoskeletal: normal ROM, no deformity, no swelling GI: No obvious distention soft mild tenderness generalized. Nondistended no guarding rebounding or rigidity Neurological: A&O moves all extremities equal strength and symmetry Psychiatric: Cooperative and appropriate Medical Decision Making MEDICAL DECISION MAKING Number and Complexity of Problems Differential Diagnosis: [] [facility] Data External documents reviewed: [] My EKG interpretation: [] My CT interpretation: Reviewed My X-ray interpretation: [] My Ultrasound interpretation: [] Decision rules/scores evaluated: [] Discussed with: [] Treatment and Disposition ED Course: 28-year-old female reports to the emergency department with complaints of a Crohn's flareup. Reports abdominal pain with nausea and vomiting. Exam the patient rather benign. Abdomen is generally tenderness, but otherwise benign. Due to concerns we did do lab work as well as a CT. Lab reviewed noted. No acute changes seen. CT of her abdomen was benign for any acute changes. Chronic changes seen. Discussed with the patient was understanding. Discussed follow-up with her colorectal surgeon which she will. Follow-up with your primary care provider in 3 to 5 days. If symptoms worsen, do not improve, or new symptoms arise please report back to emergency department for further evaluation. The patient was understanding and agreeable to plan moving forward. Shared decision making: [] Code status: [] Assessment/Plan Abdominal pain (R10.9: Unspecified abdominal pain) Crohn's disease (K50.90: Crohn's disease, unspecified, without complications) Orders: acetaminophen-oxycodon e, 1 EA, Tab, Oral, Once, Stop date 07/13/24 23:25:00 EDT, STAT, Start date 07/13/24 23:25:00 EDT dicyclomine, 60 mg = 3 tab(s), Tab, Oral, Once, Stop date 07/13/24 23:25:00 EDT, STAT, Start date 07/13/24 23:25:00 EDT, 07/13/24 23:25:00 EDT dicyclomine, 10 mg = 1 cap(s), Oral, QID, X 7 day(s), # 28 cap(s), Refills(s) 0, Pharmacy: [facility]/pharmacy #[id number], 167, cm, 07/13/24 18:32:00 EDT, Height/Length Dosing, 63.6, kg, 07/13/24 18:32:00 EDT, Weight Dosing HYDROmorphone, 0.5 mg = 0.5 mL, Injection, IV Push, Once, Stop date 07/13/24 18:56:00 EDT, STAT, Start date 07/13/24 18:56:00 EDT, 07/13/24 18:56:00 EDT HYDROmorphone, 0.5 mg = 0.5 mL, Injection, IV Push, Once, Stop date 07/13/24 22:40:00 EDT, STAT, Start date 07/13/24 22:40:00 EDT, 07/13/24 22:40:00 EDT methylPREDNISolone, 125 mg = 2 mL, Injection, IV Push, Once, Stop date 07/13/24 23:24:00 EDT, STAT, Start date 07/13/24 23:24:00 EDT, 07/13/24 23:24:00 EDT ondansetron, 12 mg = 3 tab(s), Tab-Dis, Oral, Once, Stop date 07/13/24 23:25:00 EDT, STAT, Start date 07/13/24 23:25:00 EDT, 07/13/24 23:25:00 EDT ondansetron, 4 mg = 2 mL, Injection, IV Push, Once, Stop date 07/13/24 18:56:00 EDT, STAT, Start date 07/13/24 18:56:00 EDT, 07/13/24 18:56:00 EDT predniSONE, 50 mg = 1 tab(s), Oral, Daily, X 5 day(s), # 5 tab(s), Refills(s) 0, Pharmacy: [facility]/pharmacy #[id number], 167, cm, 07/13/24 18:32:00 EDT, Height/Length Dosing, 63.6, kg, 07/13/24 18:32:00 EDT, Weight Dosing Basic Metabolic Panel Beta hCG Qual CBC w/ Auto Diff CT Abdomen/Pelvis w/ Contrast eGFR Extra Blue Tube Extra SST Tube Hepatic Function Panel Lipase Level Saline Lock (more content not included)... Normal [facility] Comment on above: Result Comment: Elec tronically Signed By: Wil Chandler PA-C\.br\Date and Time Signed: 07/13/24 23:33 EDT\.br\Electronically Co-Signed By: Elliot Macias DO\.br\Date and Time Co-Signed: 07/14/24 06:48 EDT B hCG Qualon 07-13-2024 Beta HCG ( test) Ql Negative Normal [facility] Comment on above: Performed By: #### 2 [id number] #### [facility] [address] [place] [address] BMPon 07-13-2024 Anion gap [Moles/Vol] 11 mmol/L Normal 6-16 [facility] Comment on above: Performed By: #### 2 [id number] #### [facility] [address] [place] [address] Calcium [Mass/Vol] 8.3 mg/dL Low 8.9-11.1 [facility] Comment on above: Performed By: #### 2 [id number] #### [facility] [address] [place] [address] Chloride [Moles/Vol] 97 mmol/L Low 101-111 [facility] Comment on above: Performed By: #### 2 [id number] #### [facility] [address] [facility] [address] CO2 [Moles/Vol] 31 mmol/L Normal 21-31 [facility] Comment on above: Performed By: #### 2 [id number] #### [facility] [address] [place] [address] Creatinine [Mass/Vol] 0.7 mg/dL Normal 0.5-1.3 [facility] Comment on above: Performed By: #### 2 [id number] #### [facility] [address] [place] [address] Glucose [Mass/Vol] 92 mg/dL Normal 55-199 [facility] Comment on above: Performed By: #### 2 [id number] #### [facility] [address] [place] [address] Potassium [Moles/Vol] 3.8 mmol/L Normal 3.5-5.3 [facility] Comment on above: Performed By: #### 2 [id number] #### [facility] [address] [place] [address] Sodium [Moles/Vol] 135 mmol/L Normal 135-145 [facility] Comment on above: Performed By: #### 2 [id number] #### [facility] [address] [place] [address] Urea nitrogen [Mass/Vol] 7 mg/dL Normal 5-21 [facility] Comment on above: Performed By: #### 2 [id number] #### [facility] [address] [place] [address] Urea nitrogen/Creatinine [Mass ratio] 10 No Units Normal 10-20 [facility] Comment on above: Performed By: #### 2 [id number] #### [facility] [address] [place] [address] CBC w/ Auto Diffon --202 4 Basophils/100 WBC (Bld) 0.3 % Normal 0.0-2.0 [facility] Comment on above: Performed By: #### 2 [id number] #### [facility] [address] [place] [address] Basophils/Leukocytes Auto (Bld) [Pure # fraction] 0.0 E9/L Normal 0.0-0.2 [facility] Comment on above: Performed By: #### 2 [id number] #### [facility] [address] [place] [address] Eosinophils (Bld) [#/Vol] 0.1 E9/L Normal 0.0-0.5 [facility] Comment on above: Performed By: #### 2 [id number] #### [facility] [address] [place] [address] Eosinophils/100 WBC (Bld) 0.8 % Normal 0.0-8.0 [facility] Comment on above: Performed By: #### 2 [id number] #### [facility] [address] [place] [address] Erythrocyte distribution width (RBC) [Ratio] 16.7 % High 10.9-14.2 [facility] Comment on above: Performed By: #### 2 [id number] #### [facility] [address] [place] [address] Hematocrit (Bld) [Volume fraction] 38.4 % Normal 34.0-46.0 [facility] Comment on above: Performed By: #### 2 [id number] #### [facility] [address] [place] [address] Hemoglobin (Bld) [Mass/Vol] 12.5 g/dL Normal 12.0-16.0 [facility] Comment on above: Performed By: #### 2 [id number] #### [facility] [address] [place] [address] Lymphocytes (Bld) [#/Vol] 0.7 E9/L Low 1.0-4.0 [facility] Comment on above: Performed By: #### 2 [id number] #### [facility] [address] [place] [address] Lymphocytes/100 WBC (Bld) 8.1 % Low 14.0-50.0 [facility] Comment on above: Performed By: #### 2 [id number] #### [facility] [address] [place] [address] MCH (RBC) [Entitic mass] 27.2 pg Normal 27.0-34.0 [facility] Comment on above: Performed By: #### 2 [id number] #### [facility] [address] [place] [address] MCHC (RBC) [Mass/Vol] 32.7 g/dL Normal 31.4-36.0 [facility] Comment on above: Performed By: #### 2 [id number] #### [facility] [address] [place] [address] MCV (RBC) [Entitic vol] 83.1 fL Normal 80.0-100.0 [facility] Comment on above: Performed By: #### 2 [id number] #### [facility] [address] [place] [address] Monocytes (Bld) [#/Vol] 0.7 E9/L Normal 0.2-1.0 [facility] Comment on above: Performed By: #### 2 [id number] #### [facility] [address] [place] [address] Neutrophils (Bld) [#/Vol] 7.7 E9/L High 2.0-7.5 [facility] Comment on above: Performed By: #### 2 [id number] #### [facility] [address] [place] [address] Neutrophils/100 WBC (Bld) 83.7 % High 36.0-75.0 [facility] Comment on above: Performed By: #### 2 [id number] #### [facility] [address] [place] [address] Platelet mean volume (Bld) [Entitic vol] 7.0 fL Normal 6.4-10.8 [facility] Comment on above: Performed By: #### 2 [id number] #### [facility] [address] [place] [address] Platelets (Bld) [#/Vol] 488.0 E9/L Normal 150.0-500.0 [facility] Comment on above: Performed By: #### 2 [id number] #### [facility] [address] [place] [address] RBC (Bld) [#/Vol] 4.6 E12/L Normal 4.3-5.9 [facility] Comment on above: Performed By: #### 2 [id number] #### [facility] [address] [place] [address] WBC corrected for nucl RBC Auto (Bld) [#/Vol] 9.2 E9/L Normal 4.0-11.0 [facility] Comment on above: Performed By: #### 2 [id number] #### [facility] [address] [place] [address] CHEMISTRYOrdered By: Suellen Cadet on 07-13-2024 Albumin [Mass/Vol] 2.7 g/dL Low 3.3 - 5.0 gm/dL Remisol Chem Albumin/Globulin [Mass ratio] 0.6 {ratio} Low 1.1 - 2.2 Remisol Chem ALP [Catalytic activity/Vol] 143 [iU]/d High 21 - 98 Int._Unit/L Remisol Chem ALT No additional P-5'-P [Catalytic activity/Vol] 9 [iU]/d Normal 6 - 46 Int._Unit/L Remisol Chem Anion gap [Moles/Vol] 11 mmol/L Normal 6 - 16 mEq/L Remisol Chem AST [Catalytic activity/Vol] 23 [iU]/d Normal 5 - 43 Int._Unit/L Remisol Chem Bilirubin [Mass/Vol] 0.4 mg/dL Normal 0.0 - 1 .1 mg/dL Remisol Chem Bilirubin.direct [Mass/Vol] 0.1 mg/dL Normal 0.0 - 0.4 mg/dL Remisol Chem Bilirubin.indirect [Mass or moles/Vol] 0.3 mg/dL Normal 0.1 - 0.9 mg/dL Remisol Chem Calcium [Mass/Vol] 8.3 mg/dL Low 8.9 - 11. 1 mg/dL Remisol Chem Chloride [Moles/Vol] 97 mmol/L Low 101 - 1 11 mmol/L Remisol Chem CO2 [Moles/Vol] 31 mmol/L Normal 21 - 31 mmol/L Remis ol Chem Creatinine [Mass/Vol] 0.7 mg/dL Normal 0.5 - 1.3 mg/dL Remisol Chem eGFR 120 mL/min/1.73 m2 Normal >=59mL/mi n/1.7 3 m2 Remisol Chem Globulin (S) [Mass/Vol] 4.5 g/dL High 1.4 - 4.0 gm/dL Remisol Chem Glucose [Mass/Vol] 92 mg/dL Normal 55 - 199 mg/dL Re misol Chem Lipase [Catalytic activity/Vol] 23 U/L Normal 13 - 58 unit/L Remisol Chem Potassium [Moles/Vol] 3.8 mmol/L Normal 3.5 - 5.3 mmol/L Remisol Chem Protein [Mass/Vol] 7.2 g/dL Normal 6.0 - 7.8 gm/dL Remisol Chem Sodium [Moles/Vol] 135 mmol/L Normal 135 - 145 mmol/L Remisol Chem Urea nitrogen [Mass/Vol] 7 mg/dL Normal 5 - 21 mg/dL Remisol Chem Urea nitrogen/Creatinine [Mass ratio] 10 mg/mg Normal 10 - 20 Remisol Chem ED Clinical Summaryon 2023 ED Clinical Summary ED Clinical Summary [place] [id number] ED Clinical Summary Person Information Name: ROLA AGUILAR [facility] Age: 28 Years : 1995 Sex: Female Language: Iraqi PCP: NONE, XXXX Marital Status: Single Phone: [phone] Visit Id: Visit Reason: Nausea; Vomiting; Abdominal pain; ABD PAIN, WEAK Speciality: Acuity: 3 Enc Type: Emergency Med Service: Emergency Arrival: 07/13/2024 18:22:47 Discharge: 07/13/2024 23:57:06 LOS: 000 05:35 Checkin: 07/13/2024 18:22:47 Checkout: 07/13/2024 23:57:06 Dispo Type: Home (Routine DC) EVENTS: Event Name Event Status Request Date/Time Start Date/Time Complete Date/Time Arrive Complete 07/13/2024 18:22:47 07/13/2024 18:22:47 07/13/2024 18:22:47 Document Home Meds Request 07/13/2024 18:22:47 Triage Complete 07/13/2024 18:22:47 07/13/2024 18:32:50 07/13/2024 18:32:50 Bed Assign Complete 07/13/2024 18:25:08 07/13/2024 18:25:08 07/13/2024 18:25:08 Dr Exam Complete 07/13/2024 18:25:08 07/13/2024 18:42:18 07/13/2024 18:42:18 RN Exam Complete 07/13/2024 18:25:08 07/13/2024 18:46:15 07/13/2024 18:46:15 Registration Complete 07/13/2024 18:25:55 07/13/2024 18:25:55 07/13/2024 18:25:55 Reg Complete Request 07/13/2024 18:25:55 Reg Bed Request Complete 07/13/2024 18:25:55 07/13/2024 18:25:55 07/13/2024 18:25:55 Registration Request 07/13/2024 18:42:18 Dr Exam Complete 07/13/2024 18:46:28 07/13/2024 18:46:28 07/13/2024 18:46:28 CT Complete 07/13/2024 18:56:33 07/13/2024 20:10:30 07/13/2024 20:28:04 Pending Labs Request 07/13/2024 18:56:33 Lab Complete 07/13/2024 18:56:33 07/13/2024 20:19:00 Meds Admin Complete 07/13/2024 18:56:33 07/13/2024 19:25:56 Patient Care Complete 07/13/2024 18:56:33 07/13/2024 19:47:15 Pending Labs Complete 07/13/2024 19:33:00 07/13/2024 19:33:00 07/13/2024 20:19:00 Lab Complete 07/13/2024 19:33:00 07/13/2024 19:33:00 07/13/2024 20:19:00 Pending Labs Complete 07/13/2024 19:34:00 07/13/2024 19:34:00 07/13/2024 19:34:00 Pending Labs Complete 07/13/2024 19:35:10 07/13/2024 20:09:50 Meds Admin Complete 07/13/2024 22:40:24 07/13/2024 22:53:14 Meds Admin Complete 07/13/2024 23:25:34 07/13/2024 23:53:37 Discharge Complete 07/13/2024 23:27:46 07/13/2024 23:57:10 07/13/2024 23:57:10 Transfer Complete 07/13/2024 23:57:10 07/13/2024 23:57:10 07/13/2024 23:57:10 ADDRESS: [address] [place] [phone] PHYS DOC NOTES: MEDICAL INFORMATION: Prescriptions Given: Medications to Continue Taking That Have Changed [facility]/pharmacy #[id number], [address], [place] [id number], [phone] START: dicyclomine (Bentyl 10 mg Cap) 1 Capsules By Mouth 4 times a day for 7 Days. Refills: 0. START: predniSONE (predniSONE 50 mg Tab) 1 Tablets By Mouth every day for 5 Days. Refills: 0. Other Medications START: dicyclomine (Bentyl 10 mg Cap) 2 Capsules By Mouth 4 times a day. Refills: 0. START: predniSONE (predniSONE 10 mg Tab) Take 6 tablets once a day for 4 days, then 5 tablets once a day for 4 days, then 4 tablets once a day for 4 days, then 3 tablets a day for 4 days, then continue with your 20 mg prednisone daily. Refills: 0. START: predniSONE (predniSONE 10 mg Tab) 1 Dose Separtor By Mouth As Directed. Take 5 tabs by mouth daily x5 days, 4 daily x5 days, 3 daily x5 days, 2 daily x5 days, then 1 tab daily x5 days.. Refills: 0. START: predniSONE (predniSONE 10 mg Tab) 6 tabs for 2 days,5 tabs for 2 days,4 tabs for 2 days,3 tabs for 2 days,2 tabs for 2 days,1 tab for 2 days. Refills: 0. START: predniSONE (predniSONE 10 mg Tab) as directed By Mouth As Directed. 6 tabs for 4 days,5 tabs for 4 days,4 tabs for 4 days,3 tabs for 4 days, then resume your maintenance 20 mg of prednisone.. Refills: 0. Medications to Continue with No Changes Other Medications acetaminophen-oxycodon e (Percocet 5 mg-325 mg oral tablet) 1 Tablets By Mouth every 6 hours as needed as needed for pain. Refills: 0. cyproheptadine hydrOXYzine (Vistaril 25 mg Tab) 1-2 tab(s) By Mouth 4 times a day as needed as needed for anxiety. Refills: 0. iron sucrose (Venofer) metoclopramide (metoclopramide 10 mg oral tablet, disintegrating) 1 Tablets By Mouth every 6 hours as needed Nausea/Vomiting. Refills: 0. metoclopramide (Reglan) ondansetron (Zofran 4 mg Tab) 1 Tablets By Mouth every 8 hours as needed Nausea/Vomiting. Refills: 0. ondansetron (Zofran 4 mg Tab) ondansetron (Zofran ODT 4 mg Tab-Dis) 1 Tablets By Mouth every 8 hours. Refills: 0. ondansetron (Zofran ODT 4 mg Tab-Dis) 1 Tablets By Mouth every 6 hours as needed Nausea/Vomiting. Refills: 0. ondansetron (Zofran ODT 4 mg Tab-Dis) 1 Tablets By Mouth every 8 hours. Refills: 0. ondansetron (Zofran ODT 4 mg Tab-Dis) 1 Tablets By Mouth every 8 hours as needed Nausea/Vomiting. Refills: 0. promethazine (promethazine 25 mg Tab) 1 Tablets By Mouth every 6 hours as needed as needed for nausea/vomiti (more content not included)... Normal [facility] ED Patient Summaryon 024 ED Patient Summary ED Patient Summary [address] [address] Patient Discharge Instructions Person Information Name: ROLA AGUILAR Age: 28 Years Arrival Date: 07/13/2024 18:22:47 Discharge Diagnosis: Abdominal pain; Crohn's disease Primary Care Physician: NONE, XXXX Provider Information Primary Provider: Elliot Macias DO [employer] Cutting Machine Operator:Kelly The exam and treatment you received in the Emergency Department were for an urgent problem and are not intended as complete care. It is important that you follow up with a doctor, nurse practitioner, or physician?s assistant professor surgical technology for ongoing care. If your symptoms become worse or you do not improve as expected and you are unable to reach your usual health care provider, you should return to the Emergency Department. We are available 24 hours a day. ROLA AGUILAR has been given the following list of patient education materials, prescriptions and follow-up instructions: Follow-up Instructions: With: Address: When: Ja Bhardwaj [address] [place] [address], [address], [place] [id number] [phone] Business (1) In 3 days 07/16/2024 Comments: Call Dr for diagnosis based follow up In the event that this physician does not participate in your insurance network, please consult with your insurance company to find a nearby participating provider. Patient Education Materials: Crohn's Disease; Abdominal Pain, Adult, Aotd-be-Otdz A MESSAGE TO ALL PATIENTS REGARDING OPIOIDS PRESCRIPTION OPIOIDS: WHAT YOU NEED TO KNOW Prescription opioids can be used to help relieve [id number] pain and are often prescribed following a surgery or injury, or for certain health conditions. These medications can be an important part of the treatment but also come with serious risks. It is important to work with your healthcare provider to make sure you are getting the safest, most effective care. WHAT ARE THE RISKS AND SIDE EFFECTS OF OPIOID USE? Prescription opioids carry serious risks of addiction and overdose, especially with prolonged use. An opioid overdose, often marked by slowed breathing, can cause sudden . The use of prescription opioids can have a number of side effects as well, even when taken as directed: ? Tolerance?meaning you might need to take more of the medication for the same pain relief ? Physical dependence?meaning you have symptoms of withdrawal when a medication is stopped ? Increased sensitivity to pain ? Constipation ? Nausea, vomiting, and dry mouth ? Sleepiness and dizziness ? Confusion ? Depression ? Low levels of testosterone that can result in lower sex drive, energy, and strength ? Itching and sweating RISKS ARE GREATER WITH: ? History of drug misuse, substance use disorder, or overdose ? Mental health conditions (such as depression or anxiety) ? Sleep apnea ? Older age (65 years and older) ? Avoid alcohol while taking prescription opioids. Also, unless specifically advised by your health care provider, medications to avoid include: ? Benzodiazepines (such as Xanax or Valium) ? Muscle relaxants (such as Soma or Flexeril) ? Hypnotics (such as Ambien or Lunesta) ? Other prescription opioids KNOW YOUR OPTIONS Talk to your health care provider about ways to manage your pain that don?t involve prescription opioids. Some of these options may actually work better and have fewer risks and side effects. Options may include: ? Pain relievers such as acetaminophen, ibuprofen, and naproxen ? Some medication that are also used for depression or seizures ? Physical therapy and exercise ? Cognitive behavioral therapy, a psychological, goal-directed approach, in which patients learn how to modify physical, behavioral, and emotional triggers of pain and stress. IF YOU ARE PRESCRIBED OPIOIDS FOR PAIN: ? Never take opioids in greater amounts or more often than prescribed. ? Follow up with your primary health care provider. o Work together to create a plan on how to manage your pain. o Talk about ways to help manage your pain that don?t involve prescription opioids. o Talk about any and all concerns and side effects. ? Help prevent misuse and abuse o Never sell or share prescription opioids. o Never use another person?s prescription opioids. ? Store prescription opioids in a secure place and out of reach of others (this may include visitors, children, friends, and family). ? Safely dispose of unused prescription opioids: Find your community drug take-back program or your pharmacy mail-back program, or flush them down the toilet, following guidance from the Food and Drug Administration (www.fda.gov/Drugs/Res ourcesForYou). ? Visit www.cdc.gov/drugoverdo se to learn about the risks of opioids abuse and overdose. ? If you believe you may be struggling with addiction, tell your health ca (more content not included)... Normal [facility] Extra Blueon 07-13-2024 Tube Collected Plasma Yes Invalid Interpretation Code [facility] Comment on above: Performed By: #### 1 [id number] #### [facility] [address] [place] [address] HEMATOLOGYOrdered By: SYSTEM SYSTEM on 07-13-2024 Basophils/100 WBC (Bld) 0.3 % Normal 0.0 - 2.0 % Remisol Heme Basophils/Leukocytes Auto (Bld) [Pure # fraction] 0.0 E9/L Normal 0.0 - 0.2 E9/L Remisol Heme Eosinophils (Bld) [#/Vol] 0.1 E9/L Normal 0.0 - 0.5 E9/L Remisol Heme Eosinophils/100 WBC (Bld) 0.8 % Normal 0.0 - 8.0 % Remisol Heme Erythrocyte distribution width (RBC) [Ratio] 16.7 % High 10.9 - 14.2 % Remisol Heme Hematocrit (Bld) [Volume fraction] 38.4 % Normal 34.0 - 46.0 % Remisol Heme Hemoglobin (Bld) [Mass/Vol] 12.5 g/dL Normal 12.0 - 16.0 gm/dL Remisol Heme Lymphocytes (Bld) [#/Vol] 0.7 E9/L Low 1.0 - 4.0 E9/L Remisol Heme Lymphocytes/100 WBC (Bld) 8.1 % Low 14.0 - 50.0 % Remisol Heme MCH (RBC) [Entitic mass] 27.2 pg Normal 27.0 - 34.0 pg Remisol Heme MCHC (RBC) [Mass/Vol] 32.7 g/dL Normal 31.4 - 36.0 gm/dL Remisol Heme MCV (RBC) [Entitic vol] 83.1 fL Normal 80.0 - 100.0 fL Remisol Heme Monocytes (Bld) [#/Vol] 0.7 E9/L Normal 0.2 - 1.0 E9/L Remisol Heme Monocytes/100 WBC (Bld) 7.1 % Normal 4.0 - 14.0 % Remisol Heme Neutrophils (Bld) [#/Vol] 7.7 E9/L High 2.0 - 7.5 E9/L Remisol Heme Neutrophils/100 WBC (Bld) 83.7 % High 36.0 - 75.0 % Remisol Heme Platelet mean volume (Bld) [Entitic vol] 7.0 fL Normal 6.4 - 10.8 fL Remisol Heme Platelets (Bld) [#/Vol] 488.0 E9/L Normal 150.0 - 500.0 E9/L Remisol Heme RBC (Bld) [#/Vol] 4.6 E12/L Normal 4.3 - 5.9 E12/L Remisol Heme WBC corrected for nucl RBC Auto (Bld) [#/Vol] 9.2 E9/L Normal 4.0 - 11.0 E9/L Remisol Heme Hep Func Panelon 07-13-2024 Albumin [Mass/Vol] 2.7 g/dL Low 3.3-5.0 [facility] Comment on above: Performed By: #### 2 [id number] #### [facility] [address] [place] [address] Albumin/Globulin (S) [Mass conc ratio] 0.6 Low 1.1-2.2 [facility] Comment on above: Performed By: #### 2 [id number] #### [facility] [address] [place] [address] ALP [Catalytic activity/Vol] 143 Int._Unit/L High 21-98 [facility] Comment on above: Performed By: #### 2 [id number] #### [facility] [address] [place] [address] ALT No additional P-5'-P [Catalytic activity/Vol] 9 Int._Unit/L Normal 6-46 [facility] Comment on above: Performed By: #### 2 [id number] #### [facility] [address] [place] [address] AST [Catalytic activity/Vol] 23 Int._Unit/L Normal 5-43 [facility] Comment on above: Performed By: #### 2 [id number] #### [facility] [address] [place] [address] Bilirubin [Mass/Vol] 0.4 mg/dL Normal 0.0-1.1 [facility] Comment on above: Performed By: #### 2 [id number] #### [facility] [address] [place] [address] Bilirubin.direct [Mass/Vol] 0.1 mg/dL Normal 0.0-0.4 [facility] Comment on above: Performed By: #### 2 [id number] #### [facility] [address] [place] [address] Bilirubin.indirect [Mass or moles/Vol] 0.3 mg/dL Normal 0.1-0.9 [facility] Comment on above: Performed By: #### 2 [id number] #### [facility] [address] [place] [address] Globulin (S) [Mass/Vol] 4.5 g/dL High 1.4-4.0 [facility] Comment on above: Performed By: #### 2 [id number] #### [facility] [address] [place] [address] Protein [Mass/Vol] 7.2 g/dL Normal 6.0-7.8 [facility] Comment on above: Performed By: #### 2 [id number] #### [facility] [address] [place] [address] Lipase Levelon 07-13-2024 Lipase [Catalytic activity/Vol] 23 U/L Normal 13-58 [facility] Comment on above: Performed By: #### 2 [id number] #### [facility] [address] [place] [address] SEROLOGYOrdered By: Sherrell Mason on 07-13-2024 Beta HCG ( test) Ql Negative (07/13/24 7:28 PM) Normal [facility] Man Sero eGFRon 07-13-2024 eGFR 120 mL/min/1.73 m2 Normal >=59 [facility] Comment on above: Performed By: #### 1 [id number] #### [facility] [address] [place] [address] ED Note-Physicianon 07-06-20 ED Note-Physician ED Note-Physician Basic Information Time Seen: Esthela LEDESMAPuneet 06/30/2024 11:33 Chief Complaint dizziness and near syncope been going on for months. worse the last few days. worried about potassium. feels weak. perianal abcess that is still awaiting surgical appointment History of Present Illness 28-year-old female comes to the ED for evaluation of abdominal pain. She has a history of Crohn's disease. Over the last 6 weeks she has had crampy abdominal pain with rectal pain. She states she was seen in outside ED was diagnosed with a rectal abscess. She follows with colorectal surgery at the [facility]. She is being scheduled for management of the abscess. She states she continues to have rectal drainage with abdominal cramping. She feels overall weak and is concerned for dehydration. No fevers. She has had nausea but no vomiting. Ileostomy output has overall been normal. Review of Systems A 10 point review of systems is negative except as noted above. Medical and Surgical History: Reviewed and noted Social history: Lives at home Tobacco: Denies Physical Exam Vitals & Measurements T: 36.4 ???C(Oral) HR: 144(Peripheral) RR: 22 BP: 97/68 SpO2: 96% HT: 167 cm WT: 67.5 kg BMI: 24.2 Nurses notes and vital signs reviewed and patient is not hypoxic. General: Awake and alert, appears chronically ill Skin: Warm, dry. Head: Atraumatic. Neck: No JVD. Eye: Normal conjunctiva. Ears, Nose, Mouth, and Throat: Moist mucous membranes. Cardiovascular: Strong distal pulses. Tachycardic Chest wall: Respiratory: Respirations are nonlabored. Back: Normal range of motion. Musculoskeletal: Normal ROM with no gross deformity. Gastrointestinal: Abdomen is soft throughout. Well-appearing ileostomy. Urological: Neurological: Awake and alert. No focal deficits. Follows commands. Psychiatric: Cooperative. Medical Decision Making Patient presents with generalized abdominal pain and tachycardia. Did consider IV fluid bolus, however given the national shortage laboratory studies were added prior to fluid administration. The patient was treated with pain and nausea medication he has been oral hydration well. Laboratory studies are reviewed. Grossly stable. Chronic mild hypokalemia. Was still examination she does feel improved after medications. CT of the abdomen is reviewed by the radiologist. Multiple chronic stable findings. No acute change. She will be discharged home to continue outpatient workup with her colorectal surgeon. Patient was encouraged to return to the ED if symptoms worsen or change. Assessment/Plan Crohn's disease (K50.90: Crohn's disease, unspecified, without complications) Rectal abscess (K61.1: Rectal abscess) Orders: HYDROmorphone, 1 mg = 1 mL, Injection, IV Push, Once, Stop date 06/30/24 14:38:00 EDT, STAT, Start date 06/30/24 14:38:00 EDT, 06/30/24 14:38:00 EDT morphine, 4 mg = 1 mL, Injection, IV Push, Once, Stop date 06/30/24 13:08:00 EDT, STAT, Start date 06/30/24 13:08:00 EDT, 06/30/24 13:08:00 EDT ondansetron, 4 mg = 2 mL, Injection, IV Push, Once, Stop date 06/30/24 13:08:00 EDT, STAT, Start date 06/30/24 13:08:00 EDT, 06/30/24 13:08:00 EDT Basic Metabolic Panel CBC w/ Auto Diff CT Abdomen/Pelvis w/ Contrast eGFR Extra Blue Tube Extra SST Tube Hepatic Function Panel Lipase Level UA with Cult Rflx Medications Administered Given Dilaudid 1 mg/mL injectable solution, 1 mg, IV Push morphine 4 mg/mL Inj, 4 mg, IV Push Zofran 4 mg/2 mL Injection, 4 mg, IV Push Disposition Plan Patient Discharge Condition Disposition: Discharged home Condition: Improved and stable Counseled: Patient and/or family were counseled to workup, results, treatment plan and follow-up recommendations Discharge Prescription List Prescriptions No active prescription medications Follow-up With When Contact Information XXXX NONE In 3 days 07/03/2024 EDT [place] Additional Instructions: Follow-up with your colorectal surgeon Patient Education Anorectal Abscess Attestation I performed a substantive part of the MDM during the patient???s E/M visit. I personally made or approved the documented management plan and acknowledge its risk of complications. (Independent Interpretation) My (EKG/X-Ray/US/CT) interpretation as above. (Discussion) Management/test interpretation discussed with APC. This report was transcribed using voice recognition software. Every effort was made to ensure accuracy, however, inadvertently computerized claims supervisor mistakes may be present. Appropriate healthcare PPE was used in evaluating this patient. Problem List/Past Medical History Ongoing Anxiety disorder due to medical condition Bipolar depression Crohn's disease Generalized anxiety disorder H/O psoriasis Mechanical deep vein thrombosis (DVT) prophylaxis in place Protein-calorie malnutrition, severe S/P ileostomy Sinus tachycardia Smoker Vitamin A deficiency Historical Fistula Panic at (more content not included)... Normal [facility] Comment on above: Result Comment: Elec tronically Signed By: Puneet Proctor PA-C\.br\Date and Time Signed: 06/30/24 15:15 EDT\.br\Electronically Co-Signed By: Harry Devine DO\.br\Date and Time Co-Signed: 07/06/24 07:37 EDT BMPon 06-30-2024 Anion gap [Moles/Vol] 13 mmol/L Normal 6-16 [facility] Comment on above: Performed By: #### 2 [id number] #### [facility] [address] [place] [address] Calcium [Mass/Vol] 8.0 mg/dL Low 8.9-11.1 [facility] Comment on above: Performed By: #### 2 [id number] #### [facility] [address] [place] [address] Chloride [Moles/Vol] 98 mmol/L Low 101-111 [facility] Comment on above: Performed By: #### 2 [id number] #### [facility] [address] [place] [address] CO2 [Moles/Vol] 27 mmol/L Normal 21-31 [facility] Comment on above: Performed By: #### 2 [id number] #### [facility] [address] [place] [address] Creatinine [Mass/Vol] 0.6 mg/dL Normal 0.5-1.3 [facility] Comment on above: Performed By: #### 2 [id number] #### [facility] [address] [place] [address] Glucose [Mass/Vol] 100 mg/dL Normal 55-199 [facility] Comment on above: Performed By: #### 2 [id number] #### [facility] [address] [place] [address] Potassium [Moles/Vol] 3.3 mmol/L Low 3.5-5.3 [facility] Comment on above: Performed By: #### 2 [id number] #### [facility] [address] [place] [address] Sodium [Moles/Vol] 135 mmol/L Normal 135-145 [facility] Comment on above: Performed By: #### 2 [id number] #### [facility] [address] [place] [address] Urea nitrogen [Mass/Vol] 7 mg/dL Normal 5-21 [facility] Comment on above: Performed By: #### 2 [id number] #### [facility] [address] [place] [address] Urea nitrogen/Creatinine [Mass ratio] 12 No Units Normal 10-20 [facility] Comment on above: Performed By: #### 2 [id number] #### [facility] [address] [place] [address] CBC w/ Auto Diffon 4 Basophils/100 WBC (Bld) 0.6 % Normal 0.0-2.0 [facility] Comment on above: Performed By: #### 2 [id number] #### [facility] [address] [place] [address] Basophils/Leukocytes Auto (Bld) [Pure # fraction] 0.0 E9/L Normal 0.0-0.2 [facility] Comment on above: Performed By: #### 2 [id number] #### [facility] [address] [place] [address] Eosinophils (Bld) [#/Vol] 0.2 E9/L Normal 0.0-0.5 [facility] Comment on above: Performed By: #### 2 538596 #### [facility] [address] [place] [address] Eosinophils/100 WBC (Bld) 2.4 % Normal 0.0-8.0 [facility] Comment on above: Performed By: #### 2 [id number] #### [facility] [address] [place] [address] Erythrocyte distribution width (RBC) [Ratio] 17.6 % High 10.9-14.2 [facility] Comment on above: Performed By: #### 2 [id number] #### [facility] [address] [place] [address] Hematocrit (Bld) [Volume fraction] 37.1 % Normal 34.0-46.0 [facility] Comment on above: Performed By: #### 2 [id number] #### [facility] [address] [place] [address] Hemoglobin (Bld) [Mass/Vol] 12.4 g/dL Normal 12.0-16.0 [facility] Comment on above: Performed By: #### 2 [id number] #### [facility] [address] [place] [address] Lymphocytes (Bld) [#/Vol] 1.5 E9/L Normal 1.0-4.0 [facility] Comment on above: Performed By: #### 2 [id number] #### [facility] [address] [place] [address] Lymphocytes/100 WBC (Bld) 22.3 % Normal 14.0-50.0 [facility] Comment on above: Performed By: #### 2 [id number] #### [facility] [address] [place] [address] MCH (RBC) [Entitic mass] 27.3 pg Normal 27.0-34.0 [facility] Comment on above: Performed By: #### 2 [id number] #### [facility] [address] [place] [address] MCHC (RBC) [Mass/Vol] 33.4 g/dL Normal 31.4-36.0 [facility] Comment on above: Performed By: #### 2 [id number] #### [facility] [address] [place] [address] MCV (RBC) [Entitic vol] 81.9 fL Normal 80.0-100.0 [facility] Comment on above: Performed By: #### 2 [id number] #### [facility] [address] [place] [address] Monocytes (Bld) [#/Vol] 0.5 E9/L Normal 0.2-1.0 [facility] Comment on above: Performed By: #### 2 [id number] #### [facility] [address] [place] [address] Neutrophils (Bld) [#/Vol] 4.6 E9/L Normal 2.0-7.5 [facility] Comment on above: Performed By: #### 2 165661 #### [facility] [address] [place] [address] Neutrophils/100 WBC (Bld) 67.7 % Normal 36.0-75.0 [facility] Comment on above: Performed By: #### 2 400076 #### [facility] [address] [place] [address] Platelet 483.0 E9/L Normal 150.0-500.0 [facility] Comment on above: Performed By: #### 2 [id number] #### [facility] [address] [place] [address] Platelet mean volume (Bld) [Entitic vol] 7.1 fL Normal 6.4-10.8 [facility] Comment on above: Performed By: #### 2 [id number] #### [facility] [address] [place] [address] RBC (Bld) [#/Vol] 4.5 E12/L Normal 4.3-5.9 [facility] Comment on above: Performed By: #### 2 [id number] #### [facility] [address] [place] [address] WBC corrected for nucl RBC Auto (Bld) [#/Vol] 6.8 E9/L Normal 4.0-11.0 [facility] Comment on above: Performed By: #### 2 [id number] #### [facility] [address] [place] [address] CHEMISTRYOrdered By: SYSTEM SYSTEM on 06-30-2024 Albumin [Mass/Vol] 2.7 g/dL Low 3.3 - 5.0 gm/dL Remisol Chem Albumin/Globulin [Mass ratio] 0.6 {ratio} Low 1.1 - 2.2 Remisol Chem ALP [Catalytic activity/Vol] 136 [iU]/d High 21 - 98 Int._Unit/L Remisol Chem ALT No additional P-5'-P [Catalytic activity/Vol] 9 [iU]/d Normal 6 - 46 Int._Unit/L Remisol Chem Anion gap [Moles/Vol] 13 mmol/L Normal 6 - 16 mEq/L Remisol Chem AST [Catalytic activity/Vol] 17 [iU]/d Normal 5 - 43 Int._Unit/L Remisol Chem Bilirubin [Mass/Vol] 0.5 mg/dL Normal 0.0 - 1 .1 mg/dL Remisol Chem Bilirubin.direct [Mass/Vol] 0.1 mg/dL Normal 0.0 - 0.4 mg/dL Remisol Chem Bilirubin.indirect [Mass or moles/Vol] 0.4 mg/dL Normal 0.1 - 0.9 mg/dL Remisol Chem Calcium [Mass/Vol] 8.0 mg/dL Low 8.9 - 11. 1 mg/dL Remisol Chem Chloride [Moles/Vol] 98 mmol/L Low 101 - 1 11 mmol/L Remisol Chem CO2 [Moles/Vol] 27 mmol/L Normal 21 - 31 mmol/L Remis ol Chem Creatinine [Mass/Vol] 0.6 mg/dL Normal 0.5 - 1.3 mg/dL Remisol Chem eGFR 125 mL/min/1.73 m2 Normal >=59mL/mi n/1.7 3 m2 Remisol Chem Globulin (S) [Mass/Vol] 4.8 g/dL High 1.4 - 4.0 gm/dL Remisol Chem Glucose [Mass/Vol] 100 mg/dL Normal 55 - 199 mg/dL Re misol Chem Lipase [Catalytic activity/Vol] 29 U/L Normal 13 - 58 unit/L Remisol Chem Potassium [Moles/Vol] 3.3 mmol/L Low 3.5 - 5.3 mmol/L Remisol Chem Protein [Mass/Vol] 7.5 g/dL Normal 6.0 - 7.8 gm/dL Remisol Chem Sodium [Moles/Vol] 135 mmol/L Normal 135 - 145 mmol/L Remisol Chem Urea nitrogen [Mass/Vol] 7 mg/dL Normal 5 - 21 mg/dL Remisol Chem Urea nitrogen/Creatinine [Mass ratio] 12 mg/mg Normal 10 - [address] Abdomen/Pelvis w/ Contras ton 06-30-2024 CT Abdomen/Pelvis w/ Contrast Exam Date/Time: 06/30/2024 13:08 EDT Reason for Exam: Pain Report IMPRESSION: WALL THICKENING AND PERICOLONIC INFLAMMATION OF THE ENTIRE COLON DOES NOT APPEAR SIGNIFICANT CHANGED NOR DOES A PERIANAL ABSCESS, HEPATIC STEATOSIS, OR SPLENOMEGALY. EXAM: CT Abdomen/Pelvis w/ Contrast History: Abdominal pain. Perianal abscess. Technique: Multiple contiguous axial images were obtained of the abdomen and pelvis from the level of the lung bases through the ischial tuberosities with contrast. Multiplanar reformats were obtained. Delayed images were obtained. Unless otherwise stated, incidental findings identified in this report do not require routine follow-up imaging. Comparison: CT abdomen pelvis 04/08/2024 Findings: Lung bases are clear. Hepatic steatosis. The spleen is mildly enlarged measuring approximately 14.6 cm in length. Unchanged tiny hypodensity of the inferior spleen likely a cyst or hemangioma. The gallbladder, stomach, pancreas, and adrenal glands are within normal limits. The kidneys enhance uniformly. No urinary tract calculi or hydronephrosis. The urinary bladder is suboptimally distended. Mild perivesicular fat stranding. The uterus is present. Trace free fluid in the pelvis is nonspecific. Abdominal aorta is nonaneurysmal. No retroperitoneal or abdominal/pelvic lymphadenopathy. Right lower quadrant ileostomy with parastomal hernia, not significantly changed from prior examination. There is diffuse wall thickening and increased enhancement of the colon with pericolic inflammation, not significantly changed from prior examination, likely secondary to Crohn's disease. A perianal abscess containing a drain does not appear significantly changed. No overt colonic mass or pericolonic inflammation. The appendix is not definitively visualized. No pneumatosis intestinalis, portal venous gas, or pneumoperitoneum. No acute osseous abnormality. Report All CT scans at this facility use dose modulation, iterative reconstruction, and/or weight based dosing when appropriate to reduce radiation dose to as low as reasonably achievable. Ordering Provider: Puneet Proctor FINAL REPORT Dictated: 06/30/2024 1:31 pm Tio Ken DO Signed (Electronic Signature): 06/30/2024 1:31 pm Signed by: Tio Ken DO Transcribed by: CLARICE Technologist: IHSAN Technical Comments GFR (mL/min/1/73m2) na Contrast: Isovue 300 Contrast amount in ml's: 100 Rectal Contrast Given? No Normal [facility] ED Clinical Summaryon 2023 ED Clinical Summary ED Clinical Summary [place] [id number] ED Clinical Summary Person Information Name: ROLA AGUILAR [facility] Age: 28 Years : 1995 Sex: Female Language: Iraqi PCP: NONE, XXXX Marital Status: Single Phone: [phone] Visit Id: Visit Reason: Weakness or fatigue; Dizziness; SOB Speciality: Acuity: 2 Enc Type: Emergency Med Service: Emergency Arrival: 06/30/2024 11:05:49 Discharge: 06/30/2024 15:22:09 LOS: 000 04:17 Checkin: 06/30/2024 11:05:49 Checkout: 06/30/2024 15:22:09 Dispo Type: Home (Routine DC) EVENTS: Event Name Event Status Request Date/Time Start Date/Time Complete Date/Time Arrive Complete 06/30/2024 11:05:49 06/30/2024 11:05:49 06/30/2024 11:05:49 Document Home Meds Request 06/30/2024 11:05:49 Triage Complete 06/30/2024 11:05:49 06/30/2024 11:14:04 06/30/2024 11:14:04 Bed Assign Complete 06/30/2024 11:09:11 06/30/2024 11:09:11 06/30/2024 11:09:11 Dr Exam Complete 06/30/2024 11:09:11 06/30/2024 11:33:51 06/30/2024 11:33:51 RN Exam Complete 06/30/2024 11:09:11 06/30/2024 11:42:03 06/30/2024 11:42:03 EKG Complete 06/30/2024 11:09:50 06/30/2024 11:14:27 Registration Complete 06/30/2024 11:33:51 06/30/2024 11:53:59 06/30/2024 11:53:59 Pending Labs Request 06/30/2024 11:34:16 Lab Complete 06/30/2024 11:34:16 06/30/2024 12:13:33 Dr Exam Complete 06/30/2024 11:35:29 06/30/2024 11:35:29 06/30/2024 11:35:29 Pending Labs Complete 06/30/2024 11:46:04 06/30/2024 11:46:04 06/30/2024 12:13:33 Lab Complete 06/30/2024 11:46:04 06/30/2024 11:46:04 06/30/2024 12:13:33 Reg Complete Request 06/30/2024 11:53:59 Reg Bed Request Complete 06/30/2024 11:53:59 06/30/2024 11:53:59 06/30/2024 11:53:59 CT Complete 06/30/2024 11:57:32 06/30/2024 12:54:47 06/30/2024 13:08:48 Pending Labs Complete 06/30/2024 12:18:23 06/30/2024 12:18:23 06/30/2024 12:18:23 Meds Admin Complete 06/30/2024 13:08:47 06/30/2024 13:15:33 Meds Admin Complete 06/30/2024 14:38:18 06/30/2024 14:53:20 Discharge Complete 06/30/2024 14:38:51 06/30/2024 15:22:16 06/30/2024 15:22:16 Transfer Complete 06/30/2024 15:22:16 06/30/2024 15:22:16 06/30/2024 15:22:16 ADDRESS: [address] [place] [id number] PHYS DOC NOTES: MEDICAL INFORMATION: Prescriptions Given: Medications to Continue with No Changes Other Medications acetaminophen-oxycodon e (Percocet 5 mg-325 mg oral tablet) 1 Tablets By Mouth every 6 hours as needed as needed for pain. Refills: 0. cyproheptadine dicyclomine (Bentyl 10 mg Cap) 2 Capsules By Mouth 4 times a day. Refills: 0. hydrOXYzine (Vistaril 25 mg Tab) 1-2 tab(s) By Mouth 4 times a day as needed as needed for anxiety. Refills: 0. iron sucrose (Venofer) metoclopramide (metoclopramide 10 mg oral tablet, disintegrating) 1 Tablets By Mouth every 6 hours as needed Nausea/Vomiting. Refills: 0. metoclopramide (Reglan) ondansetron (Zofran 4 mg Tab) 1 Tablets By Mouth every 8 hours as needed Nausea/Vomiting. Refills: 0. ondansetron (Zofran 4 mg Tab) ondansetron (Zofran ODT 4 mg Tab-Dis) 1 Tablets By Mouth every 8 hours. Refills: 0. ondansetron (Zofran ODT 4 mg Tab-Dis) 1 Tablets By Mouth every 6 hours as needed Nausea/Vomiting. Refills: 0. ondansetron (Zofran ODT 4 mg Tab-Dis) 1 Tablets By Mouth every 8 hours. Refills: 0. ondansetron (Zofran ODT 4 mg Tab-Dis) 1 Tablets By Mouth every 8 hours as needed Nausea/Vomiting. Refills: 0. predniSONE (predniSONE 10 mg Tab) as directed By Mouth As Directed. 6 tabs for 4 days,5 tabs for 4 days,4 tabs for 4 days,3 tabs for 4 days, then resume your maintenance 20 mg of prednisone.. Refills: 0. predniSONE (predniSONE 10 mg Tab) Take 6 tablets once a day for 4 days, then 5 tablets once a day for 4 days, then 4 tablets once a day for 4 days, then 3 tablets a day for 4 days, then continue with your 20 mg prednisone daily. Refills: 0. predniSONE (predniSONE 10 mg Tab) 1 Dose Separtor By Mouth As Directed. Take 5 tabs by mouth daily x5 days, 4 daily x5 days, 3 daily x5 days, 2 daily x5 days, then 1 tab daily x5 days.. Refills: 0. predniSONE (predniSONE 10 mg Tab) 6 tabs for 2 days,5 tabs for 2 days,4 tabs for 2 days,3 tabs for 2 days,2 tabs for 2 days,1 tab for 2 days. Refills: 0. promethazine (promethazine 25 mg Tab) 1 Tablets By Mouth every 6 hours as needed as needed for nausea/vomiting. Refills: 0. sertraline (Zoloft) PATIENT EDUCATION INFORMATION: Instructions: Anorectal Abscess Follow up: With: Address: When: [place] In 3 days 07/03/2024 Comments: Follow-up with your colorectal surgeon DIAGNOSIS: Crohn's disease; Rectal abscess Normal [facility] ED Patient Summaryon ED Patient Summary ED Patient Summary [place] [id number] Patient Discharge Instructions Person Information Name: ROLA AGUILAR Age: 28 Years Arrival Date: 06/30/2024 11:05:49 Discharge Diagnosis: Crohn's disease; Rectal abscess Primary Care Physician: NONE, [place] Provider Information Primary Provider: Harry Devine DO [employer] Cutting Machine Operator:Puneet Proctor PA-C The exam and treatment you received in the Emergency Department were for an urgent problem and are not intended as complete care. It is important that you follow up with a doctor, nurse practitioner, or physician?s assistant professor surgical technology for ongoing care. If your symptoms become worse or you do not improve as expected and you are unable to reach your usual health care provider, you should return to the Emergency Department. We are available 24 hours a day. ROLA AGUILAR has been given the following list of patient education materials, prescriptions and follow-up instructions: Follow-up Instructions: With: Address: When: [place]X [place] , [place] In 3 days 07/03/2024 Comments: Follow-up with your colorectal surgeon In the event that this physician does not participate in your insurance network, please consult with your insurance company to find a nearby participating provider. Patient Education Materials: Anorectal Abscess A MESSAGE TO ALL PATIENTS REGARDING OPIOIDS PRESCRIPTION OPIOIDS: WHAT YOU NEED TO KNOW Prescription opioids can be used to help relieve tkwkaeed-bo-qoduer pain and are often prescribed following a surgery or injury, or for certain health conditions. These medications can be an important part of the treatment but also come with serious risks. It is important to work with your healthcare provider to make sure you are getting the safest, most effective care. WHAT ARE THE RISKS AND SIDE EFFECTS OF OPIOID USE? Prescription opioids carry serious risks of addiction and overdose, especially with prolonged use. An opioid overdose, often marked by slowed breathing, can cause sudden . The use of prescription opioids can have a number of side effects as well, even when taken as directed: ? Tolerance?meaning you might need to take more of the medication for the same pain relief ? Physical dependence?meaning you have symptoms of withdrawal when a medication is stopped ? Increased sensitivity to pain ? Constipation ? Nausea, vomiting, and dry mouth ? Sleepiness and dizziness ? Confusion ? Depression ? Low levels of testosterone that can result in lower sex drive, energy, and strength ? Itching and sweating RISKS ARE GREATER WITH: ? History of drug misuse, substance use disorder, or overdose ? Mental health conditions (such as depression or anxiety) ? Sleep apnea ? Older age (65 years and older) ? Avoid alcohol while taking prescription opioids. Also, unless specifically advised by your health care provider, medications to avoid include: ? Benzodiazepines (such as Xanax or Valium) ? Muscle relaxants (such as Soma or Flexeril) ? Hypnotics (such as Ambien or Lunesta) ? Other prescription opioids KNOW YOUR OPTIONS Talk to your health care provider about ways to manage your pain that don?t involve prescription opioids. Some of these options may actually work better and have fewer risks and side effects. Options may include: ? Pain relievers such as acetaminophen, ibuprofen, and naproxen ? Some medication that are also used for depression or seizures ? Physical therapy and exercise ? Cognitive behavioral therapy, a psychological, goal-directed approach, in which patients learn how to modify physical, behavioral, and emotional triggers of pain and stress. IF YOU ARE PRESCRIBED OPIOIDS FOR PAIN: ? Never take opioids in greater amounts or more often than prescribed. ? Follow up with your primary health care provider. o Work together to create a plan on how to manage your pain. o Talk about ways to help manage your pain that don?t involve prescription opioids. o Talk about any and all concerns and side effects. ? Help prevent misuse and abuse o Never sell or share prescription opioids. o Never use another person?s prescription opioids. ? Store prescription opioids in a secure place and out of reach of others (this may include visitors, children, friends, and family). ? Safely dispose of unused prescription opioids: Find your community drug take-back program or your pharmacy mail-back program, or flush them down the toilet, following guidance from the Food and Drug Administration (www.fda.gov/Drugs/Res ourcesForYou). ? Visit www.cdc.gov/drugoverdo se to learn about the risks of opioids abuse and overdose. ? If you believe you may be struggling with addiction, tell your health resident care technician and ask for guidance or call [facility] National Helpline at 6-201-253-MEBI. Crunched Source (more content not included)... Normal [facility] Extra Blueon 06-30-2024 Tube Collected Plasma Yes Invalid Interpretation Code [facility] Comment on above: Performed By: #### 1 [id number] #### [facility] [address] [place] [address] HEMATOLOGYOrdered By: SYSTEM SYSTEM on 06-30-2024 Basophils/100 WBC (Bld) 0.6 % Normal 0.0 - 2.0 % Remisol Heme Basophils/Leukocytes Auto (Bld) [Pure # fraction] 0.0 E9/L Normal 0.0 - 0.2 E9/L Remisol Heme Eosinophils (Bld) [#/Vol] 0.2 E9/L Normal 0.0 - 0.5 E9/L Remisol Heme Eosinophils/100 WBC (Bld) 2.4 % Normal 0.0 - 8.0 % Remisol Heme Erythrocyte distribution width (RBC) [Ratio] 17.6 % High 10.9 - 14.2 % Remisol Heme Hematocrit (Bld) [Volume fraction] 37.1 % Normal 34.0 - 46.0 % Remisol Heme Hemoglobin (Bld) [Mass/Vol] 12.4 g/dL Normal 12.0 - 16.0 gm/dL Remisol Heme Lymphocytes (Bld) [#/Vol] 1.5 E9/L Normal 1.0 - 4.0 E9/L Remisol Heme Lymphocytes/100 WBC (Bld) 22.3 % Normal 14.0 - 50.0 % Remisol Heme MCH (RBC) [Entitic mass] 27.3 pg Normal 27.0 - 34.0 pg Remisol Heme MCHC (RBC) [Mass/Vol] 33.4 g/dL Normal 31.4 - 36.0 gm/dL Remisol Heme MCV (RBC) [Entitic vol] 81.9 fL Normal 80.0 - 100.0 fL Remisol Heme Monocytes (Bld) [#/Vol] 0.5 E9/L Normal 0.2 - 1.0 E9/L Remisol Heme Monocytes/100 WBC (Bld) 7.0 % Normal 4.0 - 14.0 % Remisol Heme Neutrophils (Bld) [#/Vol] 4.6 E9/L Normal 2.0 - 7.5 E9/L Remisol Heme Neutrophils/100 WBC (Bld) 67.7 % Normal 36.0 - 75.0 % Remisol Heme Platelet 483.0 E9/L Normal 150.0 - 500.0 E9/L Remisol Heme Platelet mean volume (Bld) [Entitic vol] 7.1 fL Normal 6.4 - 10.8 fL Remisol Heme RBC (Bld) [#/Vol] 4.5 E12/L Normal 4.3 - 5.9 E12/L Remisol Heme WBC corrected for nucl RBC Auto (Bld) [#/Vol] 6.8 E9/L Normal 4.0 - 11.0 E9/L Remisol Heme Hep Func Panelon 06-30-2024 Albumin [Mass/Vol] 2.7 g/dL Low 3.3-5.0 [facility] Comment on above: Performed By: #### 2 [id number] #### [facility] [address] [place] [address] Albumin/Globulin (S) [Mass conc ratio] 0.6 Low 1.1-2.2 [facility] Comment on above: Performed By: #### 2 [id number] #### [facility] [address] [place] [address] ALP [Catalytic activity/Vol] 136 Int._Unit/L High 21-98 [facility] Comment on above: Performed By: #### 2 [id number] #### [facility] [address] [place] [address] ALT No additional P-5'-P [Catalytic activity/Vol] 9 Int._Unit/L Normal 6-46 [facility] Comment on above: Performed By: #### 2 [id number] #### [facility] [address] [place] [address] AST [Catalytic activity/Vol] 17 Int._Unit/L Normal 5-43 [facility] Comment on above: Performed By: #### 2 [id number] #### [facility] [address] [place] [address] Bilirubin [Mass/Vol] 0.5 mg/dL Normal 0.0-1.1 [facility] Comment on above: Performed By: #### 2 [id number] #### [facility] [address] [place] [address] Bilirubin.direct [Mass/Vol] 0.1 mg/dL Normal 0.0-0.4 [facility] Comment on above: Performed By: #### 2 [id number] #### [facility] [address] [place] [address] Bilirubin.indirect [Mass or moles/Vol] 0.4 mg/dL Normal 0.1-0.9 [facility] Comment on above: Performed By: #### 2 [id number] #### [facility] [address] [place] [address] Globulin (S) [Mass/Vol] 4.8 g/dL High 1.4-4.0 [facility] Comment on above: Performed By: #### 2 [id number] #### [facility] [address] [place] [address] Protein [Mass/Vol] 7.5 g/dL Normal 6.0-7.8 [facility] Comment on above: Performed By: #### 2 [id number] #### [facility] [address] [place] [address] Lipase Levelon 06-30-2024 Lipase [Catalytic activity/Vol] 29 U/L Normal 13-58 [facility] Comment on above: Performed By: #### 2 [id number] #### [facility] [address] [place] [address] eGFRon 06-30-2024 eGFR 125 mL/min/1.73 m2 Normal >=59 [facility] Comment on above: Performed By: #### 1 [id number] #### [facility] [address] [place] [address] [facility] Telephone (GENSAV) ROLA AGUILAR ([id number]) 1995 F Date Time Provider Department 05/13/24 CANDIS LAUGHLIN GENSAZane During your visit today, we recorded the following information about you: Candis Laughlin RN 05/13/2024 10:49 AM Signed Patient is currently a [facility] patient who saw Dr. Thakkar in September with the below note : evaluation of crohn's disease. She was last seen in the office on 08/02/23. She was previously seen in the hospital on 05/01/23. 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 Patient needs to follow up with [facility] due to the Crohns and severity of perianal disease Yannick Davidson 05/13/2024 11:05 AM Signed Called and spoke to patient, appt with Dr White has been canceled. Patient states she tried to schedule a follow up with Dr Thakkar and was told he does not treat perianal abscess, advised pt I will look into this matter and call her back. Zuly Deshpande 05/14/2024 1:07 PM Signed Lvm regarding the information below contact office to schedule this appt Zuly Sewell 05/18/2024 12:03 PM Signed clinical states Dr Thakkar will see for this dx. see notes below I tried to contact patient - she has not returned the call Zuly Kaur Pichardo Coord, Yannick 05/19/2024 10:19 AM Signed Called and spoke to patient, appt schd with Dr Thakkar on 06/19 in [place] 9:45a, pt aware of location. Thank you. Allergies As of Date: 05/13/2024 Noted Allergy Reaction HYDROMORPHONE 05/26/2023 9 - Itching Date Reviewed: 04/01/2024 Reviewed by: Maddie [place], RN - Fully Assessed Reason for Visit: Appointment [186] Prescriptions as of 05/19/2024 - vedolizumab (ENTYVIO PEN) 108 mg/0.68 mL pen Inject 108mg (1 pen) subcutaneously every other week. - predniSONE (DELTASONE) 20 mg tablet Take 1 tablet by mouth once daily. - vedolizumab (ENTYVIO PEN) 108 mg/0.68 mL pen Inject 108 mg (1 pen) subcutaneously every other week. Problem List As Of Date 05/13/2024 Noted Resolved Crohn's disease (regional enteritis) (HCC) [K50*08/22/2018 02/04/2023 Abdominal pain [R10.9] 09/10/2018 01/21/2023 Hypomagnesemia [E83.42] 09/11/2018 09/12/2018 Hyponatremia [E87.1] 09/11/2018 09/12/2018 Perineal abscess [L02.215] 09/09/2018 Malnutrition of mild degree (HCC) [E44.1] 09/11/2018 Hypokalemia [E87.6] 09/12/2018 Crohn's colitis (HCC) [K50.10] 09/09/2018 02/04/2023 Obesity, Class II, BMI 35-39.9 [E66.9] 08/26/2020 History of creation of ostomy (HCC) [Z93.9] 01/22/2021 Crohn's disease of colon with complication (HCC*01/17/2023 History of endoscopy [Z98.890] 02/04/2023 07/04/2023 Imaging of gastrointestinal tract abnormal [R93*02/04/2023 13 weeks gestation of [Z3A.13] 04/30/2023 07/04/2023 Maternal Crohn's disease affecting in*04/30/2023 10/24/2023 Obesity, Class I, BMI 30-34.9 [E66.9] 05/01/2023 Anxiety and depression [F41.9, F32.A] 07/04/2023 Abdominal pain affecting [O26.899, R1*07/26/2023 10/27/2023 25 weeks gestation of [Z3A.25] 07/27/2023 08/01/2023 General counseling and advice for contraceptive*08/01/20 23 10/24/2023 Abdominal pain [R10.9] 08/19/2023 10/27/2023 Crohn's disease of small and large intestines w*08/20/2023 Crohn's disease of large intestine without comp*08/21/2023 Maternal Crohn's disease affecting in*08/23/2023 10/24/2023 29 weeks gestation of [Z3A.29] 08/23/2023 09/05/2023 Anemia during in third trimester [O99*09/05/2023 10/24/2023 Maternal iron deficiency anemia complicating pr*09/13/2023 Impaired intestinal absorption [K90.9] 09/13/2023 Non-reassuring status, delivered, current*10/24/2023 10/27/2023 care following delivery [Z3*10/24/2023 Maternal Crohn's disease (HCC) [O99.619, K50.90]10/24/2023 Ileostomy prolapse (HCC) [K94.19] 10/24/2023 Unwanted fertility [Z30.09] 10/24/2023 10/27/2023 Rubella non-immune status, delivered, current h*10/25/2023 10/27/2023 ABLA (acute blood loss anemia) [D62] 10/25/2023 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) [K5*01/18/[address] (HCC) [Z93.2] 01/18/2024 Generalized abdominal pain [R10.84] 01/20/2024 Encounter Status:Closed by CANDIS LAUGHLIN on 05/13/24 Normal [facility] B hCG Qualon 04-08-2024 Beta HCG ( test) Ql Negative Normal [facility] Comment on above: Performed By: #### 2 [id number] #### [facility] [address] [place] [address] BMPon 04-08-2024 Anion gap [Moles/Vol] 17 mmol/L High 6-16 [facility] Comment on above: Performed By: #### 2 [id number] #### [facility] [address] [place] [address] Calcium [Mass/Vol] 8.8 mg/dL Low 8.9-11.1 [facility] Comment on above: Performed By: #### 2 [id number] #### [facility] [address] [place] [address] Chloride [Moles/Vol] 95 mmol/L Low 101-111 [facility] Comment on above: Performed By: #### 2 [id number] #### [facility] [address] [place] [address] CO2 [Moles/Vol] 27 mmol/L Normal 21-31 [facility] Comment on above: Performed By: #### 2 [id number] #### [facility] [address] [place] [address] Creatinine [Mass/Vol] 0.8 mg/dL Normal 0.5-1.3 [facility] Comment on above: Performed By: #### 2 [id number] #### [facility] [address] [place] [address] Glucose [Mass/Vol] 101 mg/dL Normal 55-199 [facility] Comment on above: Performed By: #### 2 [id number] #### [facility] [address] [place] [address] Potassium [Moles/Vol] 3.2 mmol/L Low 3.5-5.3 [facility] Comment on above: Performed By: #### 2 525863 #### [facility] [address] [place] [address] Sodium [Moles/Vol] 136 mmol/L Normal 135-145 [facility] Comment on above: Performed By: #### 2 [id number] #### [facility] [address] [place] [address] Urea nitrogen [Mass/Vol] 9 mg/dL Normal 5-21 [facility] Comment on above: Performed By: #### 2 [id number] #### [facility] [address] [place] [address] Urea nitrogen/Creatinine [Mass ratio] 11 No Units Normal 10-20 [facility] Comment on above: Performed By: #### 2 [id number] #### [facility] [address] [place] [address] CBC w/ Auto Diffon 4 Basophils/100 WBC (Bld) 0.5 % Normal 0.0-2.0 [facility] Comment on above: Performed By: #### 2 [id number] #### [facility] [address] [place] [address] Basophils/Leukocytes Auto (Bld) [Pure # fraction] 0.0 E9/L Normal 0.0-0.2 [facility] Comment on above: Performed By: #### 2 [id number] #### [facility] [address] [place] [address] Eosinophils (Bld) [#/Vol] 0.1 E9/L Normal 0.0-0.5 [facility] Comment on above: Performed By: #### 2 896235 #### [facility] [address] [place] [address] Eosinophils/100 WBC (Bld) 1.0 % Normal 0.0-8.0 [facility] Comment on above: Performed By: #### 2 [id number] #### [facility] [address] [place] [address] Erythrocyte distribution width (RBC) [Ratio] 16.2 % High 10.9-14.2 [facility] Comment on above: Performed By: #### 2 [id number] #### [facility] [address] [place] [address] Hematocrit (Bld) [Volume fraction] 35.8 % Normal 34.0-46.0 [facility] Comment on above: Performed By: #### 2 [id number] #### [facility] [address] [place] [address] Hemoglobin (Bld) [Mass/Vol] 12.2 g/dL Normal 12.0-16.0 [facility] Comment on above: Performed By: #### 2 359014 #### [facility] [address] [place] [address] Lymphocytes (Bld) [#/Vol] 0.8 E9/L Low 1.0-4.0 [facility] Comment on above: Performed By: #### 2 [id number] #### [facility] [address] [place] [address] Lymphocytes/100 WBC (Bld) 12.5 % Low 14.0-50.0 [facility] Comment on above: Performed By: #### 2 [id number] #### [facility] [address] [place] [address] MCH (RBC) [Entitic mass] 27.1 pg Normal 27.0-34.0 [facility] Comment on above: Performed By: #### 2 [id number] #### [facility] [address] [place] [address] MCHC (RBC) [Mass/Vol] 34.0 g/dL Normal 31.4-36.0 [facility] Comment on above: Performed By: #### 2 [id number] #### [facility] [address] [place] [address] MCV (RBC) [Entitic vol] 79.6 fL Low 80.0-100.0 [facility] Comment on above: Performed By: #### 2 [id number] #### [facility] [address] [place] [address] Monocytes (Bld) [#/Vol] 1.2 E9/L High 0.2-1.0 [facility] Comment on above: Performed By: #### 2 [id number] #### [facility] [address] [place] [address] Neutrophils (Bld) [#/Vol] 4.1 E9/L Normal 2.0-7.5 [facility] Comment on above: Performed By: #### 2 [id number] #### [facility] [address] [place] [address] Neutrophils/100 WBC (Bld) 66.9 % Normal 36.0-75.0 [facility] Comment on above: Performed By: #### 2 [id number] #### [facility] [address] [place] [address] Platelet 532.0 E9/L High 150.0-500.0 [facility] Comment on above: Performed By: #### 2 [id number] #### [facility] [address] [place] [address] Platelet mean volume (Bld) [Entitic vol] 7.8 fL Normal 6.4-10.8 [facility] Comment on above: Performed By: #### 2 [id number] #### [facility] [address] [place] [address] RBC (Bld) [#/Vol] 4.5 E12/L Normal 4.3-5.9 [facility] Comment on above: Performed By: #### 2 [id number] #### [facility] [address] [place] [address] WBC corrected for nucl RBC Auto (Bld) [#/Vol] 6.1 E9/L Normal 4.0-11.0 [facility] Comment on above: Performed By: #### 2 [id number] #### [facility] [address] [place] [address] CHEMISTRYOrdered By: Tony Espinal on 04-08-2024 Albumin [Mass/Vol] 3.5 g/dL Normal 3.3 - 5.0 gm/dL Remisol Chem Albumin/Globulin [Mass ratio] 0.9 {ratio} Low 1.1 - 2.2 Remisol Chem ALP [Catalytic activity/Vol] 103 [iU]/d High 21 - 98 Int._Unit/L Remisol Chem ALT No additional P-5'-P [Catalytic activity/Vol] 10 [iU]/d Normal 6 - 46 Int._Unit/L Remisol Chem Anion gap [Moles/Vol] 17 mmol/L High 6 - 16 mEq/L Remisol Chem AST [Catalytic activity/Vol] 8 [iU]/d Normal 5 - 43 Int._Unit/L Remisol Chem Bilirubin [Mass/Vol] 0.5 mg/dL Normal 0.0 - 1 .1 mg/dL Remisol Chem Bilirubin.direct [Mass/Vol] 0.1 mg/dL Normal 0.0 - 0.4 mg/dL Remisol Chem Bilirubin.indirect [Mass or moles/Vol] 0.4 mg/dL Normal 0.1 - 0.9 mg/dL Remisol Chem Calcium [Mass/Vol] 8.8 mg/dL Low 8.9 - 11. 1 mg/dL Remisol Chem Chloride [Moles/Vol] 95 mmol/L Low 101 - 1 11 mmol/L Remisol Chem CO2 [Moles/Vol] 27 mmol/L Normal 21 - 31 mmol/L Remis ol Chem Creatinine [Mass/Vol] 0.8 mg/dL Normal 0.5 - 1.3 mg/dL Remisol Chem eGFR 102 mL/min/1.73 m2 Normal >=59mL/mi n/1.7 3 m2 Remisol Chem Globulin (S) [Mass/Vol] 4.0 g/dL Normal 1.4 - 4.0 gm/dL Remisol Chem Glucose [Mass/Vol] 101 mg/dL Normal 55 - 199 mg/dL Re misol Chem Lipase [Catalytic activity/Vol] 25 U/L Normal 13 - 58 unit/L Remisol Chem Potassium [Moles/Vol] 3.2 mmol/L Low 3.5 - 5.3 mmol/L Remisol Chem Protein [Mass/Vol] 7.5 g/dL Normal 6.0 - 7.8 gm/dL Remisol Chem Sodium [Moles/Vol] 136 mmol/L Normal 135 - 145 mmol/L Remisol Chem Urea nitrogen [Mass/Vol] 9 mg/dL Normal 5 - 21 mg/dL Remisol Chem Urea nitrogen/Creatinine [Mass ratio] 11 mg/mg Normal 10 - [address] Abdomen/Pelvis w/ Contras ton 04-08-2024 CT Abdomen/Pelvis w/ Contrast Exam Date/Time: 04/08/2024 12:49 EDT Reason for Exam: ABDOMINAL PAIN, ACUTE, NONLOCALIZED;Other (please specify) Report IMPRESSION: Interval resolution of the trace ascites and trace bilateral pleural effusions compared to the prior study 03/08/2024. Otherwise no significant interval change. EXAMINATION: CT Abdomen/Pelvis w/ Contrast HISTORY: Lower abdominal pain with nausea, vomiting, and diarrhea including one episode of bright red blood in stool. History of Crohn's disease. History of ileostomy and . TECHNIQUE: CT of the abdomen and pelvis was performed using standard technique with intravenous contrast, scanning from just above the dome of the diaphragm to the symphysis pubis. Including delayed images through the kidneys. Including sagittal and coronal reconstructions on both phases. Unless otherwise stated, incidental findings identified in this report do not require routine follow-up imaging. All CT scans at this facility use dose modulation, iterative reconstruction, and/or weight based dosing when appropriate to reduce radiation dose to as low as reasonably achievable. COMPARISON: CT 03/08/2024. RESULT: Liver: No suspicious mass or lesion. Oral and enlarged. Biliary: Gallbladder unremarkable. No biliary ductal dilation. Pancreas: No mass or duct dilation. Spleen: Borderline enlarged measuring around 14 cm in AP dimension, similar to prior. No focal lesion. Adrenals: No mass. Kidneys: No calculus or hydronephrosis. No suspicious renal lesions. Delayed phase images unremarkable. GI tract: Right lower quadrant loop ileostomy with small fat-containing parastomal hernia, similar to prior. Diffuse wall thickening with mucosal hyperenhancement and adjacent stranding within the residual colon, chronic, and similar to the prior study. No small bowel dilation. No pneumatosis. Report Lymph nodes: No abdominal or pelvic lymphadenopathy. Mesentery/Peritoneum/R etroperitoneum: No loculated collection. Interval resolution of the trace ascites from the prior study. Vasculature: The celiac axis and SMA are patent. The portal vein and branches, splenic vein, SMV, and hepatic veins are patent. No abdominal aortic or iliac artery aneurysm. Pelvis: No significant ascites. Bladder decompressed. Uterus unremarkable. Perianal fistula containing seton, unchanged. Bones, soft tissues: No acute osseous findings. Bone island right femoral head, unchanged. Lower thorax: Unremarkable. Interval resolution of the trace pleural effusions. Ordering Provider: Wil Chandler FINAL REPORT Dictated: 04/08/2024 1:29 pm Robert Bunn MD Signed (Electronic Signature): 04/08/2024 1:29 pm Signed by: Robert Bunn MD Transcribed by: CLARICE Technologist: ENRIQUE Technical Comments GFR (mL/min/1/73m2) na Contrast: Isovue 300 Contrast amount in ml's: 100 Normal [facility] ED Clinical Summaryon 2023 ED Clinical Summary ED Clinical Summary [place] [id number] ED Clinical Summary Person Information Name: ROLA AGUILAR [facility] Age: 28 Years : 1995 Sex: Female Language: Iraqi PCP: NONE, XXXX Marital Status: Single Phone: [phone] MRN: [id number] Visit Id: Visit Reason: Blood in stool; Diarrhea; Vomiting; Abdominal pain; N/V/D Speciality: Acuity: 3 Enc Type: Emergency Med Service: Emergency Arrival: 04/08/2024 11:34:25 Discharge: 04/08/2024 16:13:05 LOS: 000 04:39 Checkin: 04/08/2024 11:34:25 Checkout: 04/08/2024 16:13:05 Dispo Type: Home (Routine DC) EVENTS: Event Name Event Status Request Date/Time Start Date/Time Complete Date/Time Arrive Complete 04/08/2024 11:34:25 04/08/2024 11:34:25 04/08/2024 11:34:25 Document Home Meds Request 04/08/2024 11:34:25 Triage Complete 04/08/2024 11:34:25 04/08/2024 11:39:54 04/08/2024 11:39:54 Bed Assign Complete 04/08/2024 11:35:43 04/08/2024 11:35:43 04/08/2024 11:35:43 Dr Exam Complete 04/08/2024 11:35:43 04/08/2024 11:37:19 04/08/2024 11:37:19 RN Exam Complete 04/08/2024 11:35:43 04/08/2024 11:46:00 04/08/2024 11:46:00 Registration Complete 04/08/2024 11:37:19 04/08/2024 11:48:12 04/08/2024 11:48:12 CT Complete 04/08/2024 11:45:14 04/08/2024 12:34:22 04/08/2024 12:49:59 Pending Labs Request 04/08/2024 11:45:14 Lab Complete 04/08/2024 11:45:14 04/08/2024 13:15:24 Meds Admin Complete 04/08/2024 11:45:14 04/08/2024 12:00:04 Pending Labs Complete 04/08/2024 11:45:42 04/08/2024 12:29:06 Dr Exam Complete 04/08/2024 11:47:41 04/08/2024 11:47:41 04/08/2024 11:47:41 Reg Complete Request 04/08/2024 11:48:12 Reg Bed Request Complete 04/08/2024 11:48:12 04/08/2024 11:48:12 04/08/2024 11:48:12 Pending Labs Complete 04/08/2024 12:02:17 04/08/2024 12:02:17 04/08/2024 12:36:06 Lab Complete 04/08/2024 12:02:17 04/08/2024 12:02:17 04/08/2024 12:36:06 Pending Labs Complete 04/08/2024 12:03:31 04/08/2024 12:03:31 04/08/2024 12:03:31 Pending Labs Cancel 04/08/2024 12:52:13 04/08/2024 12:52:13 04/08/2024 13:15:56 Pending Labs Complete 04/08/2024 12:53:10 04/08/2024 12:53:10 04/08/2024 13:14:48 Lab Complete 04/08/2024 12:53:10 04/08/2024 12:53:10 04/08/2024 13:14:48 Meds Admin Complete 04/08/2024 13:42:33 04/08/2024 13:56:55 Meds Admin Complete 04/08/2024 13:58:49 04/08/2024 14:26:47 Meds Admin Complete 04/08/2024 14:16:54 04/08/2024 14:21:05 Discharge Complete 04/08/2024 14:45:20 04/08/2024 16:13:11 04/08/2024 16:13:11 Transfer Complete 04/08/2024 16:13:11 04/08/2024 16:13:11 04/08/2024 16:13:11 ADDRESS: [address] [place] [id number] PHYS DOC NOTES: MEDICAL INFORMATION: Prescriptions Given: Medications to Continue Taking That Have Changed [facility]/pharmacy #[id number], [address], [place] [phone], [phone] START: dicyclomine (Bentyl 10 mg Cap) 1 Capsules By Mouth 4 times a day for 7 Days. Refills: 0. START: ondansetron (Zofran ODT 4 mg Tab-Dis) 1 Tablets By Mouth every 8 hours as needed Nausea/Vomiting. Refills: 0. START: predniSONE (predniSONE 10 mg Tab) as directed By Mouth As Directed. 6 tabs for 4 days,5 tabs for 4 days,4 tabs for 4 days,3 tabs for 4 days, then resume your maintenance 20 mg of prednisone.. Refills: 0. Other Medications START: dicyclomine (Bentyl 10 mg Cap) 2 Capsules By Mouth 4 times a day. Refills: 0. START: ondansetron (Zofran 4 mg Tab) 1 Tablets By Mouth every 8 hours as needed Nausea/Vomiting. Refills: 0. START: ondansetron (Zofran 4 mg Tab) START: ondansetron (Zofran ODT 4 mg Tab-Dis) 1 Tablets By Mouth every 6 hours as needed Nausea/Vomiting. Refills: 0. START: ondansetron (Zofran ODT 4 mg Tab-Dis) 1 Tablets By Mouth every 8 hours. Refills: 0. START: ondansetron (Zofran ODT 4 mg Tab-Dis) 1 Tablets By Mouth every 8 hours. Refills: 0. START: predniSONE (predniSONE 10 mg Tab) 1 Dose Separtor By Mouth As Directed. Take 5 tabs by mouth daily x5 days, 4 daily x5 days, 3 daily x5 days, 2 daily x5 days, then 1 tab daily x5 days.. Refills: 0. START: predniSONE (predniSONE 10 mg Tab) 6 tabs for 2 days,5 tabs for 2 days,4 tabs for 2 days,3 tabs for 2 days,2 tabs for 2 days,1 tab for 2 days. Refills: 0. START: predniSONE (predniSONE 10 mg Tab) Take 6 tablets once a day for 4 days, then 5 tablets once a day for 4 days, then 4 tablets once a day for 4 days, then 3 tablets a day for 4 days, then continue with your 20 mg prednisone daily. Refills: 0. Medications to Continue with No Changes Other Medications acetaminophen-oxycodon e (Percocet 5 mg-325 mg oral tablet) 1 Tablets By Mouth every 6 hours as needed as needed for pain. Refills: 0. cyproheptadine hydrOXYzine (Vistaril 25 mg Tab) 1-2 tab(s) By Mouth 4 times a day as needed as needed for anxiety. Refills: 0. iron sucrose (Venofer) metoclopramide (metoclopramide 10 mg oral tablet, disintegrating) 1 Tablets By Mouth every 6 hours as needed Nausea/Vomiting. Refills: 0. metoclopramide (Reglan) promethazine (promethazine (more content not included)... Normal [facility] ED Note-Physicianon 04-08-20 ED Note-Physician ED Note-Physician Basic Information Time Seen: Ramesh LEDESMA Wil ArreolaAna 04/08/2024 11:37 Chief Complaint pt c/o lower abdominal pain, nausea, vomiting, diarrhea for the last 3 days. 1 episode of bright red blood in stool this morning. hx of crohns, last infusion was last saturday. fluids started by EMS and given 4mg of zofran History of Present Illness A 28-year-old female reports to the emergency department with chief complaint of lower abdominal pain, nausea vomiting and diarrhea. Reports that on for the last 3 days. She states that she does have a history of Crohn's. Reports that he had bright red stool of her rectum one-time. Reports that last infusion was on Saturday. Does follow-up with GI doctor on the left leg. She states that she was given Zofran and fluids by squad. He reports his worst ever been. Reports pain generalized throughout her abdomen. Review of Systems No other aggravating or relieving factors no other associated symptoms no other prior treatments or complaints. Family: Reviewed and noncontributory Social: lives at home Review of systems negative unless otherwise specified in the HPI. Physical Exam Vitals & Measurements T: 36.8 ?C(Oral) HR: 131(Peripheral) RR: 18 BP: 103/78 SpO2: 98% HT: 167 cm WT: 77 kg BMI: 27.61 General: The patient appears well and in no apparent distress. Patient is resting comfortably on bed. Afebrile Skin: Warm, dry, no pallor noted. Head: Normocephalic, atraumatic Neck: No JVD Eye: PERRLA, EOMI ENT: Moist mucus membranes Cardiovascular: Regular rate normal peripheral perfusion Respiratory: No respiratory distress no accessory muscle use no obvious audible wheezing Chest Wall: no deformity Musculoskeletal: normal ROM, no deformity, no swelling GI: No obvious distention soft, mild tenderness generalized throughout the entire abdomen. No rebound tenderness or guarding noted. Neurological: A&O moves all extremities equal strength and symmetry Psychiatric: Cooperative and appropriate Medical Decision Making MEDICAL DECISION MAKING Number and Complexity of Problems Differential Diagnosis: [] [facility] Data External documents reviewed: [] My EKG interpretation: [] My CT interpretation: reviewed My X-ray interpretation: [] My Ultrasound interpretation: [] Decision rules/scores evaluated: [] Discussed with: [] Treatment and Disposition ED Course: 28-year-old female reports to the emergency department with chief complaint of a Crohn's flareup. Reports abdominal pain, blood in her stool. Reports vomiting. Present on for last 3 days. Reports is 1 the worst time she has ever had it. Examined the patient reveals that she does have mild tenderness throughout her abdomen. No acute distress. Resting comfortably in bed, but is tearful. Due to concerns we did do lab work as well as a CT of her abdomen. Lab work reviewed noted. No acute changes seen. CT of her abdomen showed no real significant interval change. Patient was given pain medication, steroids, and IV fluids. Was able to pass p.o. challenge here. Discussed we will do high-dose of steroids for coverage. Patient was understandable follow-up with her GI doctor. Discussed return precautions. Follow-up with your primary care provider in 3 to 5 days. If symptoms worsen, do not improve, or new symptoms arise please report back to emergency department for further evaluation. The patient was understanding and agreeable to plan moving forward. Shared decision making: [] Code status: [] Assessment/Plan Abdominal pain (R10.9: Unspecified abdominal pain) Crohn's disease (K50.90: Crohn's disease, unspecified, without complications) Orders: dicyclomine, 10 mg = 1 cap(s), Oral, QID, X 7 day(s), # 28 cap(s), Refills(s) 0, Pharmacy: [facility]/pharmacy #[id number], 167, cm, 04/08/24 11:39:00 EDT, Height/Length Dosing, 77, kg, 04/08/24 11:39:00 EDT, Weight Dosing methylPREDNISolone, 125 mg = 2 mL, Injection, IV Push, Once, Stop date 04/08/24 11:44:00 EDT, STAT, Start date 04/08/24 11:44:00 EDT, 04/08/24 11:44:00 EDT morphine, 4 mg = 1 mL, Injection, IV Push, Once, Stop date 04/08/24 11:44:00 EDT, STAT, Start date 04/08/24 11:44:00 EDT, 04/08/24 11:44:00 EDT morphine, 4 mg = 1 mL, Injection, IV Push, Once, Stop date 04/08/24 14:16:00 EDT, STAT, Start date 04/08/24 14:16:00 EDT, 04/08/24 14:16:00 EDT ondansetron, 4 mg = 1 tab(s), Oral, q8hr, PRN Nausea/Vomiting, # 12 tab(s), Refills(s) 0, Pharmacy: [facility]/pharmacy #[id number], 167, cm, 04/08/24 11:39:00 EDT, Height/Length Dosing, 77, kg, 04/08/24 11:39:00 EDT, Weight Dosing potassium bicarbonate, 50 mEq = 2 tab(s), Tab-Eff, Oral, Once, Stop date 04/08/24 13:42:00 EDT, STAT, Start date 04/08/24 13:42:00 EDT, 04/08/24 13:42:00 EDT predniSONE, as directed, Oral, As Directed, 6 tabs for 4 days,5 tabs for 4 days,4 tabs for 4 days,3 tabs for 4 days, then resume your maintenance 20 mg of prednisone., # 72 tab(s), Refills(s) 0, Pharmacy: [facility]/pharmacy #[id number], 167, cm, 04/08/24 11:39: (more content not included)... Normal [facility] Comment on above: Result Comment: Elec tronically Signed By: Wil Chandler PA-C\.br\Date and Time Signed: 04/08/24 15:26 EDT\.br\Electronically Co-Signed By: Carolyn Mcmahon M.D.\.br\Date and Time Co-Signed: 04/08/24 17:46 EDT ED Patient Summaryon ED Patient Summary ED Patient Summary [address], [place] [id number] Patient Discharge Instructions Person Information Name: ROLA AGUILAR Age: 28 Years Arrival Date: 04/08/2024 11:34:25 Discharge Diagnosis: Abdominal pain; Crohn's disease Primary Care Physician: NONE, XXXX Provider Information Primary Provider: Carolyn Mcmahon M.D. Advanced Foxing Cutting Machine Operator:None The exam and treatment you received in the Emergency Department were for an urgent problem and are not intended as complete care. It is important that you follow up with a doctor, nurse practitioner, or physician?s assistant professor surgical technology for ongoing care. If your symptoms become worse or you do not improve as expected and you are unable to reach your usual health care provider, you should return to the Emergency Department. We are available 24 hours a day. ROLA AGUILAR has been given the following list of patient education materials, prescriptions and follow-up instructions: Follow-up Instructions: With: Address: When: Shilpa العلي [address] [place] [address], [place] [phone] Business (1) In 3 days 04/11/2024 Comments: Call Dr for diagnosis based follow up In the event that this physician does not participate in your insurance network, please consult with your insurance company to find a nearby participating provider. Patient Education Materials: Crohn's Disease; Abdominal Pain, Adult A MESSAGE TO ALL PATIENTS REGARDING OPIOIDS PRESCRIPTION OPIOIDS: WHAT YOU NEED TO KNOW Prescription opioids can be used to help relieve [id number] pain and are often prescribed following a surgery or injury, or for certain health conditions. These medications can be an important part of the treatment but also come with serious risks. It is important to work with your healthcare provider to make sure you are getting the safest, most effective care. WHAT ARE THE RISKS AND SIDE EFFECTS OF OPIOID USE? Prescription opioids carry serious risks of addiction and overdose, especially with prolonged use. An opioid overdose, often marked by slowed breathing, can cause sudden . The use of prescription opioids can have a number of side effects as well, even when taken as directed: ? Tolerance?meaning you might need to take more of the medication for the same pain relief ? Physical dependence?meaning you have symptoms of withdrawal when a medication is stopped ? Increased sensitivity to pain ? Constipation ? Nausea, vomiting, and dry mouth ? Sleepiness and dizziness ? Confusion ? Depression ? Low levels of testosterone that can result in lower sex drive, energy, and strength ? Itching and sweating RISKS ARE GREATER WITH: ? History of drug misuse, substance use disorder, or overdose ? Mental health conditions (such as depression or anxiety) ? Sleep apnea ? Older age (65 years and older) ? Avoid alcohol while taking prescription opioids. Also, unless specifically advised by your health care provider, medications to avoid include: ? Benzodiazepines (such as Xanax or Valium) ? Muscle relaxants (such as Soma or Flexeril) ? Hypnotics (such as Ambien or Lunesta) ? Other prescription opioids KNOW YOUR OPTIONS Talk to your health care provider about ways to manage your pain that don?t involve prescription opioids. Some of these options may actually work better and have fewer risks and side effects. Options may include: ? Pain relievers such as acetaminophen, ibuprofen, and naproxen ? Some medication that are also used for depression or seizures ? Physical therapy and exercise ? Cognitive behavioral therapy, a psychological, goal-directed approach, in which patients learn how to modify physical, behavioral, and emotional triggers of pain and stress. IF YOU ARE PRESCRIBED OPIOIDS FOR PAIN: ? Never take opioids in greater amounts or more often than prescribed. ? Follow up with your primary health care provider. o Work together to create a plan on how to manage your pain. o Talk about ways to help manage your pain that don?t involve prescription opioids. o Talk about any and all concerns and side effects. ? Help prevent misuse and abuse o Never sell or share prescription opioids. o Never use another person?s prescription opioids. ? Store prescription opioids in a secure place and out of reach of others (this may include visitors, children, friends, and family). ? Safely dispose of unused prescription opioids: Find your community drug take-back program or your pharmacy mail-back program, or flush them down the toilet, following guidance from the Food and Drug Administration (www.fda.gov/Drugs/Res ourcesForYou). ? Visit www.cdc.gov/drugoverdo se to learn about the risks of opioids abuse and overdose. ? If you believe you may be struggling with addiction, tell your health resident care technician and as (more content not included)... Normal [facility] HEMATOLOGYOrdered By: Jordin Drake on 04-08-2024 Band form neutrophils/100 WBC (Bld) 17 % High 0 - 6 % [facility] Basophils/100 WBC (Bld) 0.5 % Normal 0.0 - 2.0 % [facility] Basophils/100 WBC (Bld) 1.0 % Normal 0.0 - 2.0 % [facility] Basophils/Leukocytes Auto (Bld) [Pure # fraction] 0.0 E9/L Normal 0.0 - 0.2 E9/L [facility] Eosinophils (Bld) [#/Vol] 0.1 E9/L Normal 0.0 - 0.5 E9/L [facility] Eosinophils/100 WBC (Bld) 1.0 % Normal 0.0 - 8.0 % [facility] Eosinophils/100 WBC (Bld) 4.0 % Normal 0.0 - 8.0 % [facility] Erythrocyte distribution width (RBC) [Ratio] 16.2 % High 10.9 - 14.2 % [facility] Hematocrit (Bld) [Volume fraction] 35.8 % Normal 34.0 - 46.0 % [facility] Hemoglobin (Bld) [Mass/Vol] 12.2 g/dL Normal 12.0 - 16.0 gm/dL [facility] Lymphocytes (Bld) [#/Vol] 0.8 E9/L Low 1.0 - 4.0 E9/L [facility] Lymphocytes/100 WBC (Bld) 12.5 % Low 14.0 - 50.0 % [facility] Lymphocytes/100 WBC (Bld) 17.0 % Normal 14.0 - 50.0 % [facility] MCH (RBC) [Entitic mass] 27.1 pg Normal 27.0 - 34.0 pg [facility] MCHC (RBC) [Mass/Vol] 34.0 g/dL Normal 31.4 - 36.0 gm/dL [facility] MCV (RBC) [Entitic vol] 79.6 fL Low 80.0 - 100.0 fL [facility] Monocytes (Bld) [#/Vol] 1.2 E9/L High 0.2 - 1.0 E9/L [facility] Monocytes/100 WBC (Bld) 19.1 % High 4.0 - 14.0 % [facility] Monocytes/100 WBC (Bld) 12.0 % Normal 4.0 - 14.0 % [facility] Neutrophils (Bld) [#/Vol] 4.1 E9/L Normal 2.0 - 7.5 E9/L [facility] Neutrophils/100 WBC (Bld) 66.9 % Normal 36.0 - 75.0 % [facility] Platelet 532.0 E9/L High 150.0 - 500.0 E9/L [facility] Platelet mean volume (Bld) [Entitic vol] 7.8 fL Normal 6.4 - 10.8 fL [facility] RBC (Bld) [#/Vol] 4.5 E12/L Normal 4.3 - 5.9 E12/L [facility] RBC size Nom (Bld) NORMAL (04/08/24 11:55 AM) Normal [facility] Segmented neutrophils/100 WBC (Bld) 49.0 % Normal 36.0 - 75.0 % [facility] WBC corrected for nucl RBC Auto (Bld) [#/Vol] 6.1 E9/L Normal 4.0 - 11.0 E9/L [facility] Hep Func Panelon 04-08-2024 Albumin [Mass/Vol] 3.5 g/dL Normal 3.3-5.0 [facility] Comment on above: Performed By: #### 2 [id number] #### [facility] [address] [place] [address] Albumin/Globulin (S) [Mass conc ratio] 0.9 Low 1.1-2.2 [facility] Comment on above: Performed By: #### 2 [id number] #### [facility] [address] [place] [address] ALP [Catalytic activity/Vol] 103 Int._Unit/L High 21-98 [facility] Comment on above: Performed By: #### 2 [id number] #### [facility] [address] [place] [address] ALT No additional P-5'-P [Catalytic activity/Vol] 10 Int._Unit/L Normal 6-46 [facility] Comment on above: Performed By: #### 2 [id number] #### [facility] [address] [place] [address] AST [Catalytic activity/Vol] 8 Int._Unit/L Normal 5-43 [facility] Comment on above: Performed By: #### 2 [id number] #### [facility] [address] [place] [address] Bilirubin [Mass/Vol] 0.5 mg/dL Normal 0.0-1.1 [facility] Comment on above: Performed By: #### 2 [id number] #### [facility] [address] [place] [address] Bilirubin.direct [Mass/Vol] 0.1 mg/dL Normal 0.0-0.4 [facility] Comment on above: Performed By: #### 2 [id number] #### [facility] [address] [place] [address] Bilirubin.indirect [Mass or moles/Vol] 0.4 mg/dL Normal 0.1-0.9 [facility] Comment on above: Performed By: #### 2 [id number] #### [facility] [address] [place] [address] Globulin (S) [Mass/Vol] 4.0 g/dL Normal 1.4-4.0 [facility] Comment on above: Performed By: #### 2 [id number] #### [facility] [address] [place] [address] Protein [Mass/Vol] 7.5 g/dL Normal 6.0-7.8 [facility] Comment on above: Performed By: #### 2 [id number] #### [facility] [address] [place] [address] Lipase Levelon 04-08-2024 Lipase [Catalytic activity/Vol] 25 U/L Normal 13-58 [facility] Comment on above: Performed By: #### 2 [id number] #### [facility] [address] [place] [address] Manual Diffon 04-08-2024 Band form neutrophils/100 WBC (Bld) 17 % High 0-6 [facility] Comment on above: Performed By: #### 2 [id number] #### [facility] [address] [place] [address] Basophils/100 WBC (Bld) 1.0 % Normal 0.0-2.0 [facility] Comment on above: Performed By: #### 2 [id number] #### [facility] [address] [place] [address] Eosinophils/100 WBC (Bld) 4.0 % Normal 0.0-8.0 [facility] Comment on above: Performed By: #### 2 [id number] #### [facility] [address] [place] [address] Lymphocytes/100 WBC (Bld) 17.0 % Normal 14.0-50.0 [facility] Comment on above: Performed By: #### 2 [id number] #### [facility] [address] [place] [address] Monocytes/100 WBC (Bld) 12.0 % Normal 4.0-14.0 [facility] Comment on above: Performed By: #### 2 [id number] #### [facility] [address] [place] [address] RBC size Nom (Bld) NORMAL Normal [facility] Comment on above: Performed By: #### 2 [id number] #### [facility] [address] [place] [address] Segmented neutrophils/100 WBC (Bld) 49.0 % Normal 36.0-75.0 [facility] Comment on above: Performed By: #### 2 [id number] #### [facility] [address] [place] [address] Pre-Arrival Noteon Pre-Arrival Note Pre-Arrival Note Pre-Arrival Summary Name: maria e Current Date: 04/08/2024 11:35:52 EDT Gender: Female Date of : Age: 28 Pre-Arrival Type: EMS ETA: 04/08/2024 11:56:00 EDT Primary Care Physician: Presenting Problem: n/v/d Pre-Arrival User: Meeta Arora Referring Source: Location: [place] Completion Date/Time: 04/08/2024 11:28:00 [facility] Emergency Department Pre-Hospital Report Form Vital Signs: 103/78 HR 120 RR 15 98% RA Pre-Hospital Report: hx of crohns, blood in stool Treatment in Route: 22 L hand started fluids 4mg zofran Response to Treatment: Misc. Issues: Normal [facility] SEROLOGYOrdered By: Fabienne pierson on 04-08-2024 Beta HCG ( test) Ql Negative (04/08/24 11:55 AM) Normal [facility] Man Sero eGFRon 04-08-2024 eGFR 102 mL/min/1.73 m2 Normal >=59 [facility] Comment on above: Order Comment: Order added by Discern Expert. Performed By: #### 1 [id number] #### [facility] [address] [place] [address] Ciro 04-01-2024 A[facility] Telephone [facility] ROLA AGUILAR ([id number]) 1995 F Date Time Provider Department 04/01/24 MADDIE SEVILLA During your visit today, we recorded the following information about you: Maddie Sevilla, RN 04/01/2024 10:04 AM Signed Patient has completed induction doses of entyvio, orders are for two induction doses IV, patient would be moving to [facility] for week 6 dose per therapy plan. Pharmacy note states she should be receiving IV doses weeks 0, 2, and 6 - starting the pen at week 14, in contrast with therapy plan. I told patient she would be finished with IV doses and to plan to do home injection at week 6 unless otherwise instructed from Dr. Humphries/pharmacy team. Just wanted to clarify with pharmacy - okay to start pens? Also, nursing communication order states on completion of induction doses to [employer] [facility] for setup of home injections. If someone could call patient and advise next steps that would be appreciated! Maddei Sevilla RN 04/01/2024 10:40 AM Signed Received message from pharmacy, confirmed that patient is okay to start pens at week 6, as in therapy plan. Pharmacy team stated they will call patient end of March to set up pen pickup/shipment. Patient also verbalized to me that she would be requesting in the meantime her prescription be switched to [facility] d/t proximity to home. Allergies As of Date: 04/01/2024 Noted Allergy Reaction HYDROMORPHONE 05/26/2023 9 - Itching Date Reviewed: 04/01/2024 Reviewed by: Maddie Sevilla, RN - Fully Assessed Prescriptions as of 04/02/2024 - vedolizumab (ENTYVIO PEN) 108 mg/0.68 mL pen Inject 108mg (1 pen) subcutaneously every other week. - predniSONE (DELTASONE) 20 mg tablet Take 1 tablet by mouth once daily. - vedolizumab (ENTYVIO PEN) 108 mg/0.68 mL pen Inject 108 mg (1 pen) subcutaneously every other week. Problem List As Of Date 04/01/2024 Noted Resolved Crohn's disease (regional enteritis) (HCC) [K50*08/22/2018 02/04/2023 Abdominal pain [R10.9] 09/10/2018 01/21/2023 Hypomagnesemia [E83.42] 09/11/2018 09/12/2018 Hyponatremia [E87.1] 09/11/2018 09/12/2018 Perineal abscess [L02.215] 09/09/2018 Malnutrition of mild degree (HCC) [E44.1] 09/11/2018 Hypokalemia [E87.6] 09/12/2018 Crohn's colitis (HCC) [K50.10] 09/09/2018 02/04/2023 Obesity, Class II, BMI 35-39.9 [E66.9] 08/26/2020 History of creation of ostomy (HCC) [Z93.9] 01/22/2021 Crohn's disease of colon with complication (HCC*01/17/2023 History of endoscopy [Z98.890] 02/04/2023 07/04/2023 Imaging of gastrointestinal tract abnormal [R93*02/04/2023 13 weeks gestation of [Z3A.13] 04/30/2023 07/04/2023 Maternal Crohn's disease affecting in*04/30/2023 10/24/2023 Obesity, Class I, BMI 30-34.9 [E66.9] 05/01/2023 Anxiety and depression [F41.9, F32.A] 07/04/2023 Abdominal pain affecting [O26.899, R1*07/26/2023 10/27/2023 25 weeks gestation of [Z3A.25] 07/27/2023 08/01/2023 General counseling and advice for contraceptive*08/01/20 23 10/24/2023 Abdominal pain [R10.9] 08/19/2023 10/27/2023 Crohn's disease of small and large intestines w*08/20/2023 Crohn's disease of large intestine without comp*08/21/2023 Maternal Crohn's disease affecting in*08/23/2023 10/24/2023 29 weeks gestation of [Z3A.29] 08/23/2023 09/05/2023 Anemia during in third trimester [O99*09/05/2023 10/24/2023 Maternal iron deficiency anemia complicating pr*09/13/2023 Impaired intestinal absorption [K90.9] 09/13/2023 Non-reassuring status, delivered, current*10/24/2023 10/27/2023 care following delivery [Z3*10/24/2023 Maternal Crohn's disease (HCC) [O99.619, K50.90]10/24/2023 Ileostomy prolapse (HCC) [K94.19] 10/24/2023 Unwanted fertility [Z30.09] 10/24/2023 10/27/2023 Rubella non-immune status, delivered, current h*10/25/2023 10/27/2023 ABLA (acute blood loss anemia) [D62] 10/25/2023 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) [K5*01/18/[address] (HCC) [Z93.2] 01/18/2024 Generalized abdominal pain [R10.84] 01/20/2024 Encounter Status:Closed by MADDIE SEVILLA on 04/01/24 Normal [facility] ROLA AGUILAR ([id number]) 1995 F Date Time Provider Department 03/25/24 MADDIE SEVILLA [facility] During your visit today, we recorded the following information about you: Maddie Sevilla RN 03/25/2024 3:06 PM Signed Called patient re: missed appt for entyvio infusion. Left voicemail reminding patient of loading dose schedule, requesting a return call to us AND phone number provided to [facility] infusion center. Maddie Sevilla RN 03/31/2024 1:09 PM Signed Called patient, 2nd attempt regarding missed entyvio appt. Spoke with her and she would like to continue with induction. To come in for 2nd dose tomorrow 04/01 @ 0900. PSS team - please put her on schedule. Dr. Humphries/Brittny - she is now a week late on her 2nd dose d/t no show, instead of loading at 0 AND 2 weeks it will be 0 AND 3 weeks prior to moving to [facility]. Just wanted to confirm that was appropriate vs. restarting induction or other plan moving forward. Thanks. Ira Wilder 03/31/2024 1:33 PM Signed Added to the schedule Lee Ann Humphries DO 04/01/2024 10:00 AM Signed Ok to continue with loading infusion as planned prior to moving to pens Allergies As of Date: 03/25/2024 Noted Allergy Reaction HYDROMORPHONE 05/26/2023 9 - Itching Date Reviewed: 03/12/2024 Reviewed by: Jagjit Yap, RN - Fully Assessed Prescriptions as of 04/02/2024 - vedolizumab (ENTYVIO PEN) 108 mg/0.68 mL pen Inject 108mg (1 pen) subcutaneously every other week. - predniSONE (DELTASONE) 20 mg tablet Take 1 tablet by mouth once daily. - vedolizumab (ENTYVIO PEN) 108 mg/0.68 mL pen Inject 108 mg (1 pen) subcutaneously every other week. Problem List As Of Date 03/25/2024 Noted Resolved Crohn's disease (regional enteritis) (HCC) [K50*08/22/2018 02/04/2023 Abdominal pain [R10.9] 09/10/2018 01/21/2023 Hypomagnesemia [E83.42] 09/11/2018 09/12/2018 Hyponatremia [E87.1] 09/11/2018 09/12/2018 Perineal abscess [L02.215] 09/09/2018 Malnutrition of mild degree (HCC) [E44.1] 09/11/2018 Hypokalemia [E87.6] 09/12/2018 Crohn's colitis (HCC) [K50.10] 09/09/2018 02/04/2023 Obesity, Class II, BMI 35-39.9 [E66.9] 08/26/2020 History of creation of ostomy (HCC) [Z93.9] 01/22/2021 Crohn's disease of colon with complication (HCC*01/17/2023 History of endoscopy [Z98.890] 02/04/2023 07/04/2023 Imaging of gastrointestinal tract abnormal [R93*02/04/2023 13 weeks gestation of [Z3A.13] 04/30/2023 07/04/2023 Maternal Crohn's disease affecting in*04/30/2023 10/24/2023 Obesity, Class I, BMI 30-34.9 [E66.9] 05/01/2023 Anxiety and depression [F41.9, F32.A] 07/04/2023 Abdominal pain affecting [O26.899, R1*07/26/2023 10/27/2023 25 weeks gestation of [Z3A.25] 07/27/2023 08/01/2023 General counseling and advice for contraceptive*08/01/20 23 10/24/2023 Abdominal pain [R10.9] 08/19/2023 10/27/2023 Crohn's disease of small and large intestines w*08/20/2023 Crohn's disease of large intestine without comp*08/21/2023 Maternal Crohn's disease affecting in*08/23/2023 10/24/2023 29 weeks gestation of [Z3A.29] 08/23/2023 09/05/2023 Anemia during in third trimester [O99*09/05/2023 10/24/2023 Maternal iron deficiency anemia complicating pr*09/13/2023 Impaired intestinal absorption [K90.9] 09/13/2023 Non-reassuring status, delivered, current*10/24/2023 10/27/2023 care following delivery [Z3*10/24/2023 Maternal Crohn's disease (HCC) [O99.619, K50.90]10/24/2023 Ileostomy prolapse (HCC) [K94.19] 10/24/2023 Unwanted fertility [Z30.09] 10/24/2023 10/27/2023 Rubella non-immune status, delivered, current h*10/25/2023 10/27/2023 ABLA (acute blood loss anemia) [D62] 10/25/2023 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) [K5*01/18/[address] (HCC) [Z93.2] 01/18/2024 Generalized abdominal pain [R10.84] 01/20/2024 Encounter Status:Closed by MADDIE SEVILLA on 03/25/24 [facility] Coding Summary.on 03-12-2024 Coding Summary. SMXKEgcq45GBp6rQl+PG hl YWQ+JI8MWEIuD02qsCUpfZ 1vP7HQPNeXZtvqFZJDSUbX ZgArsqZyIO9adKKvXCEl IC8+SN5cWQJvJywxhKIfw7 C4wKN6R93hwj6vCBpohOW9 CSIlQdWikbqxu3woaXw3WG cuNmluOyBt TGEzaE25DZQ7pX21Ky96bE JohSDuy0cfyMn4OzWvXEBk GSD2kBvlSLacs5SfSPQiP6 9zeSYok4H6 WFHtzThscPEcPiPabKS6wD 8rZQhkocsbp2hylaxdTuz3 wt93jDXei2Y8tGP3W1Jbtm T0RNLfvINa ZgivuFWHoT9rwtoeu5xuui tkGhNkBNWuOIi4LDc1CTQz kHcoLkJcAG45VTF7LIJipt NhE8YcIZEb iPpyToD6r9V4Vo7TI6FTFe euR2EINUZSRNwgzTY+PC90 vb52C6ChDhyrWpy9GKGwAX W9gVI7wB7y GGGwUPhbr8K8dQL3C6Mukq Zija2st0taXGSsPJobI20g nOTop6J1HKQlfOO5ECJoeR jcCzDjvW82 Oyc+ENYnvFdwe2IuLhmjy2 kmc1hbcDm2GvkqAIGoykVx aLmwTZR4j4UfDi4mLJYzwT D4fIT8cG1q DvYpFpM1BFrtQ637AgUlvY TmNpmfD35rU2QmuTI+PHRy Nkw8ACOjtAqyIJ6vI8CwSX RpbmctbGVm vGnjAX1wRPRdjfshLCQcfV 8mSXWyU5h7DsMaDkH6HTvb N8UsMZMyqzkrEl19bL4tOf OdMtT0IFee N3XwxvF4JKJekOExADugJS X4X04bc7Y9NSRsTGOyHSZ7 yLW2eR1wyLnfumvtcZAogJ sgdmVydGlj IQqsFXwtP873NGVnwNlmRr NvZGluZyBEYXRlOiAgMDYv MjAvMjAyNDwvdGQ+PHRkIH W8tYwaKUFa fPAaLJncEr6ivLzisTtpJJ 4eNNFmndelAOYzyO6rOGOl hOUsaRtmCE9mOYJchbjdp2 90AqXzBNA1 RIQyvXErT7GlwP1gJbQiDM VtWDYeJ6SjkKDwJTpxJ431 CQewThV3JZKwfzPlS2LzQD FsaWduOiB0 u6R6Jw7Gu5RqqmbqJ3HkyX MaHaHmVsmnAAy6C5WoMcqi dHI+LR32KUUeHI75WKq9US Z0wXdsUCjd SYIzD9WtqJ2cVlViUIPhMW RkOyc+PHRhYmxlIHdpZHRo IZsbRLDcRgGkhLlsZG3hJf 9yZGVyLWNv xBoviUJqBoLao1kbZETbIA vkQO3znSfeF7ZceNA4FQSv j0l5Uz58D57eY0MstXS+PG AeqGW5eHT6 dD9kTqYuLuO2QIhgC222Pf DbyBLeMreit7kuh3cdkOt2 KhZ5EIRzovAtxMekWES7l4 BvJj79B21f IHdpZHRoPSIxNSUiIHZhbG nsgz0zeI7rQc4+PGNvbCB3 yJO8wF5bOtPuXwN8YTbxR7 49InRvcCIv Zwlgo7lep9pysLm7JqRuNW HzgrOogKwjPCH3j3XtIx98 H2QboDmku6BtFvy1ql61iU Ulh8X0iNL8 E3XjAVLrtlenmQEnfXyhAS 8kYEXoykoeXVNgiC8aBOKl A4l7DhCnUjJ7KIkeK8Wzxl F1VUBihYJh IBQxfWFTjW2fqnnbv2cefi emKsQxKOYcJQf5ERz2GNNz qGtjGjViASB8TrO0OKQ0pC EvvW8fcZpr cbzxcX1fQsm+BZU8dMRddL OIMN9cNxfeqSF+PHRkIHN0 kTldMZiyJZJogE0iNBLqX4 v7DxDgQwH5 PBdqE0TvjaT0XVKhsGXkTO XdlYOAcE9rlehwe8ajqfps SoBqWPDhLAj1LJe6WVTyjP duOiBsZWZ0 ZvY0YWR0tRWemL6anWvtwx aviJ2xUcd+QmlydGggRGF0 GFi0Z3UsVkx2QNOvaIjeIO 0ncGFkZGlu Lg5plHopqKneOS3fNFKije jso983SfNmo1ctALNfgRDz SXdgENC8R11bx9O5CTNmSP ReUHR9eTV1 fM7wyFyseaeznEQxcLqdlx LnfJwhZFeeBXgvE814CCBz kPhpGqMxKXz4G4ElZub0UE BprGvkRO1q hLEjKQghJf8rlNpztOzmJJ 7vMIAnyvsbg219KxCic3bi WERvpZWwOTcjXGA6B54df2 Q7TXNhNBSu REZ0uEM7jW2mtZbbghhacL VmdDsgdmVydGljYWwtYWxp X014FPFiaJnaLmXpcZn3J1 WrEkj5FTMq pLcxGD1taUMfGTecFn0kdU suxAofXR2dQHQfckehm010 IvNgz5jgFHIvsWAjSCxxLL S5X20tv5P0 HNRbAHUpTEH6xVF7gQ9jpQ lnbjogbGVmdDsgdmVydGlj BGpaPRfiP221MCVbxBkbFm BhdGllbnQg LUccJLx3A6NyAwyqoLG+PC 79IMIiRL67hIItzJHea8rr lBn7ZyWzWQOyQHK9qYslJT rkn8EtHQEc C72rnESui5O5EEKycIymmE CnArKkiUS0kS1eAZcliflk y3wcwnspPbitw5ysjw73sV 16S08vRQqb ZHRoPSIzMCUiIHZhbGlnbj 2elO8mZf3+LVFeyFG6wGK1 iL5jGRAjCoN9BXrwW605Kb RvcCIvPjxj e5wgs3ktpRv9QyR9DDZxto ZpjRgmOLV0y2VlVa55K63e IHdpZHRoPSIyMCUiIHZhbG jcfd6aqV1p Ii8+EINurQT8qKE3cL0zSk DiViB0RXevT079RhXzkLCr QuppQ73pM7IczDK+PHRyPj e4WMWmjQtb SE6btHMfKWodOg2bWTV4Oj NzBwNfAOuyN2UvWEIribhu fyjogIV2VTSsIBQnhH54Ae 9udDogMTBw oIQWmB2tqvmfk1kkjuaiKr WgMNAuNGb4MGk8AVTikGrh DpPzWNI7ZqZ2IJY1lZHtiJ 1hbGlnbjog gP1hL0KiRYEiejxcBq72fJ 4sEwNxCbR5TTjkZpz+SEFN D92JRSJYDzgNKZFCUXN7C5 BvYhh0HOKl rRlwTU3hwOIaGQeeNf3miI ftdApfLO3cIHZfsakbKNKk xL5tXBVeuXJqtUrrNJ7bGC Orunhtb650 TjNlSKF9UOCfrLGdD9BktO 1jTlCwWDMfEZHqH1JajOHw CGtsY894TFvzRoE2QEKtbp GoZ5HuZIVs mGqdDfK7o1J6Jb4lPI1nWY 2kXJc1ER28EG11qMWwi5Q6 kNH4Z9WxCEOaslgfsxcojV J0HHDvRRPq mT41zOKoZHzmJg9ja3J7n4 68QDJhLBQdnQ83Qp2hkFlx AZCnwRUShM7jlknlk8blkd ogIzAwMDAw YSy7RWy5DSNjkGncIrEcBT Z3HxU2OYY3nLWvcV1thSyb rnizhT4jOfx+MjggWWVhcn U8A2MvUgv4 TOWyrIotZH4ieHWsRNwiYl 8dmVtcaIbwVW8sFXKnvkif VIFjnZ1iVAAcrWKcjAkzCU 4wNTBpbjtm p148KiPuMCY3MQUdbDAqR1 TteY2vTzApEPErMZMaM0Hb dTMmACmsE653IRzePjC2VE KvigVoN9Rd SGIuwWnuZvR8t7F8Tp7CLQ 1krFE6U3JoLcb5ZXRhqFlr QH5ghFAcPLusCx1jgUickP uhKZ4bAWKx bfbvCJXvdP8qOJNixWGpgN faFF1uJDWcenjvd878HzJu FUA4YTThoVCgM0YomB6kZi AjMDAwMDAw E6JdcXUlCYvcQ165XXgrQl J6ZDYlwbGhK0LfUBUpkJsm QoS5e9B8Og1PpTAaM4MvC3 d5D7OrFbmu dHI+FN79ELSrPI32yDDvfF Hzu5gvyZp4PzNfEQEdNKK8 dWdyFGspo2DnVAUvR31gcY Zgi3D0NNDb oDqjtCCjKtBskGZ0rI9gZG bimruvo9xquhwzQxdbb8we hi81rA04P79gJFqlXRNnAC IzMCUiIHZh nZbcpf4giV1wEf7+PGNvbC X3kBT5pS5tVeVzBkM0XRpe X510CaAieHQoZidjp4xoj2 zduPn1UyNm HCMginBeaEbwINM0k0JxIw 59U38vPDmfABJuUFXmGFFo RZTwiAqdiu4wmC0mWk1+PC 6be5drhv68 yR47qWC+PLZqBAZ4eJpcJX kdKJVxaS8mTJtoXgQ2XBNm GqWdmX35ePUsMPoyVz5clD mksPndSG2d QVKwfgfpj287QvNew6heIQ BirVMcOQioHRO8T79ul0M0 FUUaRIJlYCV3mCV2rH9nsD lnbjogbGVm dDsgdmVydGljYWwtYWxpZ2 54FNXzjOvhWdJglZZjO1co epVBCI3fKlcqpZJ+PHRkIH S0oUjmPZxl UDCqxL3iIFAfX1m6VeKyMa F6QApwT6HtauH1DXMesSNv RLQytKVOfY0godzwa9meun ogIzAwMDAw YIp3ZCm7XGBghIniHvFcVQ C4GhT5EAS0hFXbpD5ktKaf bkbdtE6cAec+RklOOjwvdG Q+PHRkIHN0 sYkePNrpLRHahV7lKXHnK3 t2MwEbWvU2WVbcR9LhitD4 LLWqjIBzCYKcoZUGmR4mmo kfy8oxzmfh UgAiQQFuUEl3WRj6XLNwvO rnVoRhSXW8KkY7RML8nQQu rF6jeIugsboojC4eQwq+TV JOOjwvdGQ+ BLUfKMY7tDkvBEqiPXBtcV 2rFWOpW6c9WzScQlS0URci I9LvmgS3MSYccFGpMCEgtF TOdJ7ryevi k7zpqhcsJnJrBLKxRMu5NW l7IMOmgXhkBvRsXUK3XoD4 NAI1tSLzbE6vaBlzkhddaL 9wOyc+UGF5 UZJ7AC65VO45F3QrEyliqS FibGU+PHRhYmxlIHdpZHRo MAntWTLeThPnaTurIR3eHa 9yZGVyLWNv bGxhcHNlOiBjb (more content not included)... Normal [facility] BMPon 03-08-2024 Anion gap [Moles/Vol] 12 mmol/L Normal - [facility] Comment on above: Performed By: #### 2 [id number] #### [facility] [address] [place] [address] Calcium [Mass/Vol] 8.7 mg/dL Low 8.9-11.1 [facility] Comment on above: Performed By: #### 2 [id number] #### [facility] [address] [place] [address] Chloride [Moles/Vol] 103 mmol/L Normal 101-111 [facility] Comment on above: Performed By: #### 2 [id number] #### [facility] [address] [place] [address] CO2 [Moles/Vol] 24 mmol/L Normal 21-31 [facility] Comment on above: Performed By: #### 2 [id number] #### [facility] [address] [place] [address] Creatinine [Mass/Vol] 0.7 mg/dL Normal 0.5-1.3 [facility] Comment on above: Performed By: #### 2 [id number] #### [facility] [address] [place] [address] Glucose [Mass/Vol] 93 mg/dL Normal 55-199 [facility] Comment on above: Performed By: #### 2 [id number] #### [facility] [address] [place] [address] Potassium [Moles/Vol] 3.7 mmol/L Normal 3.5-5.3 [facility] Comment on above: Performed By: #### 2 [id number] #### [facility] [address] [place] [address] Sodium [Moles/Vol] 135 mmol/L Normal 135-145 [facility] Comment on above: Performed By: #### 2 [id number] #### [facility] [address] [place] [address] Urea nitrogen [Mass/Vol] 8 mg/dL Normal 5-21 [facility] Comment on above: Performed By: #### 2 [id number] #### [facility] [address] [place] [address] Urea nitrogen/Creatinine [Mass ratio] 11 No Units Normal 10-20 [facility] Comment on above: Performed By: #### 2 [id number] #### [facility] [address] [place] [address] CBC w/ Auto Diffon 4 Basophils/100 WBC (Bld) 0.4 % Normal 0.0-2.0 [facility] Comment on above: Performed By: #### 2 [id number] #### [facility] [address] [place] [address] Basophils/Leukocytes Auto (Bld) [Pure # fraction] 0.0 E9/L Normal 0.0-0.2 [facility] Comment on above: Performed By: #### 2 [id number] #### [facility] [address] [place] [address] Eosinophils (Bld) [#/Vol] 0.0 E9/L Normal 0.0-0.5 [facility] Comment on above: Performed By: #### 2 [id number] #### [facility] [address] [place] [address] Eosinophils/100 WBC (Bld) 0.2 % Normal 0.0-8.0 [facility] Comment on above: Performed By: #### 2 [id number] #### [facility] [address] [place] [address] Erythrocyte distribution width (RBC) [Ratio] 16.8 % High 10.9-14.2 [facility] Comment on above: Performed By: #### 2 [id number] #### [facility] [address] [place] [address] Hematocrit (Bld) [Volume fraction] 35.2 % Normal 34.0-46.0 [facility] Comment on above: Performed By: #### 2 [id number] #### [facility] [address] [place] [address] Hemoglobin (Bld) [Mass/Vol] 11.8 g/dL Low 12.0-16.0 [facility] Comment on above: Performed By: #### 2 [id number] #### [facility] [address] [place] [address] Lymphocytes (Bld) [#/Vol] 0.8 E9/L Low 1.0-4.0 [facility] Comment on above: Performed By: #### 2 [id number] #### [facility] [address] [place] [address] Lymphocytes/100 WBC (Bld) 12.8 % Low 14.0-50.0 [facility] Comment on above: Performed By: #### 2 [id number] #### [facility] [address] [place] [address] MCH (RBC) [Entitic mass] 27.1 pg Normal 27.0-34.0 [facility] Comment on above: Performed By: #### 2 [id number] #### [facility] [address] [place] [address] MCHC (RBC) [Mass/Vol] 33.5 g/dL Normal 31.4-36.0 [facility] Comment on above: Performed By: #### 2 [id number] #### [facility] [address] [place] [address] MCV (RBC) [Entitic vol] 80.9 fL Normal 80.0-100.0 [facility] Comment on above: Performed By: #### 2 [id number] #### [facility] [address] [place] [address] Monocytes (Bld) [#/Vol] 0.6 E9/L Normal 0.2-1.0 [facility] Comment on above: Performed By: #### 2 [id number] #### [facility] [address] [place] [address] Neutrophils (Bld) [#/Vol] 4.7 E9/L Normal 2.0-7.5 [facility] Comment on above: Performed By: #### 2 [id number] #### [facility] [address] [place] [address] Neutrophils/100 WBC (Bld) 77.2 % High 36.0-75.0 [facility] Comment on above: Performed By: #### 2 [id number] #### [facility] [address] [place] [address] Platelet 330.0 E9/L Normal 150.0-500.0 [facility] Comment on above: Performed By: #### 2 [id number] #### [facility] [address] [place] [address] Platelet mean volume (Bld) [Entitic vol] 7.4 fL Normal 6.4-10.8 [facility] Comment on above: Performed By: #### 2 [id number] #### [facility] [address] [place] [address] RBC (Bld) [#/Vol] 4.3 E12/L Normal 4.3-5.9 [facility] Comment on above: Performed By: #### 2 [id number] #### [facility] [address] [place] [address] WBC corrected for nucl RBC Auto (Bld) [#/Vol] 6.1 E9/L Normal 4.0-11.0 [facility] Comment on above: Performed By: #### 2 [id number] #### [facility] [address] [place] [address] CHEMISTRYOrdered By: SYSTEM SYSTEM on 03-08-2024 Albumin [Mass/Vol] 3.7 g/dL Normal 3.3 - 5.0 gm/dL [facility] Albumin/Globulin [Mass ratio] 1.0 {ratio} Low 1.1 - 2.2 [facility] ALP [Catalytic activity/Vol] 94 [iU]/d Normal 21 - 98 Int._Unit/L [facility] ALT No additional P-5'-P [Catalytic activity/Vol] 11 [iU]/d Normal 6 - 46 Int._Unit/L [facility] Anion gap [Moles/Vol] 12 mmol/L Normal 6 - 16 mEq/L [facility] AST [Catalytic activity/Vol] 9 [iU]/d Normal 5 - 43 Int._Unit/L [facility] Bilirubin [Mass/Vol] 0.3 mg/dL Normal 0.0 - 1 .1 mg/dL [facility] Bilirubin.direct [Mass/Vol] 0.0 mg/dL Normal 0.0 - 0.4 mg/dL [facility] Bilirubin.indirect [Mass or moles/Vol] 0.3 mg/dL Normal 0.1 - 0.9 mg/dL [facility] Calcium [Mass/Vol] 8.7 mg/dL Low 8.9 - 11. 1 mg/dL [facility] Chloride [Moles/Vol] 103 mmol/L Normal 101 - 1 11 mmol/L [facility] CO2 [Moles/Vol] 24 mmol/L Normal 21 - 31 mmol/L Remis ol Chem Creatinine [Mass/Vol] 0.7 mg/dL Normal 0.5 - 1.3 mg/dL [facility] eGFR 120 mL/min/1.73 m2 Normal >=59mL/mi n/1.7 3 m2 [facility] Globulin (S) [Mass/Vol] 3.7 g/dL Normal 1.4 - 4.0 gm/dL [facility] Glucose [Mass/Vol] 93 mg/dL Normal 55 - 199 mg/dL Re misol Chem Lipase [Catalytic activity/Vol] 31 U/L Normal 13 - 58 unit/L [facility] Potassium [Moles/Vol] 3.7 mmol/L Normal 3.5 - 5.3 mmol/L [facility] Protein [Mass/Vol] 7.4 g/dL Normal 6.0 - 7.8 gm/dL [facility] Sodium [Moles/Vol] 135 mmol/L Normal 135 - 145 mmol/L [facility] Urea nitrogen [Mass/Vol] 8 mg/dL Normal 5 - 21 mg/dL [facility] Urea nitrogen/Creatinine [Mass ratio] 11 mg/mg Normal 10 - 20 [facility] COAGULATIONOrdered By: Sharifa Espinal on 03-08-2024 aPTT Coag (PPP) [Time] 30.3 s Normal 25.1 - 36.5 second(s) [facility] Auto Coag Comment on above: Interpretive Data: José mad[place] 15 days - 4 weeks 1 - 5 months 6 - 11 months 1 - 5 years 6 - 10 years 11 - 17 years PTT Mean: 35.4 (27.6-45.6) Mean: 33.5 (24.8-40.7) Mean: 32.4 (25.1-40.7) Mean: 31.6 (24.0-39.2) Mean: 31.6 (26.9-38.7) Mean: 31.0 (24.6-38.4) Pediatric Reference ranges were obtained from a study by Charli Araya et al. prepared from 1437 samples obtained at 7 different centers using the same coagulation reagent and instrumentation as [facility]. Currently there are no coagulation studies available worldwide for children to 14 days, and no normal ranges. Heparin therapeutic range (represented by Anti-Factor Xa activity of 0.2 - 0.4 U/mL) corresponds to PTT of 56.6 - 109.0 sec. INR Coag (PPP) [Relative time] 1.10 {INR} Invalid Interpretation Code [facility] Auto Coag Comment on above: Interpretive Data: I NR results are specifically intended to assess patients stabilized on long-term Anticoagulation therapy suggested INR s Less Intensive Anticoagulation 2.0 3.0 Conventional Range 3.0 4.5 PT Coag (PPP) [Time] 12.3 s Normal 9.4 - 1 2.5 second(s) [facility] Comment on above: Interpretive Data: 1 5 days - 4 weeks 1 - 5 months 6 -11 months 1-5 years 6-10 years 11 -17 years Mean: 11.2 (9.5-12.6) Mean: 11.0 (9.7-12.8) Mean: 11.0 (9.8-13.0) Mean: 11.3 (9.9-13.4) Mean: 11.7 (10.0-14.6) Mean: 11.8 (10.0 - 14.1) Pediatric Reference ranges were obtained from a study by Charli Araya et al. prepared from 1437 samples obtained at 7 different centers using the same coagulation reagent and instrumentation as [facility] [place]. Currently there are no coagulation studies available worldwide for children to 14 days, and no normal ranges. CT Abdomen/Pelvis w/ Contras ton 03-08-2024 CT Abdomen/Pelvis w/ Contrast Exam Date/Time: 03/08/2024 12:51 EDT Reason for Exam: Abdominal pain, acute, nonlocalized;Other (please specify) Report IMPRESSION: TRACE PLEURAL EFFUSIONS AND MILDLY ENLARGING RIGHT LOWER QUADRANT ASCITES. OTHERWISE, NO SIGNIFICANT CHANGE FROM 12/21/2023 IDENTIFIED. EXAM: CT Abdomen/Pelvis w/ Contrast DATE: 03/08/2024 12:39 PM CLINICAL HISTORY: Abdominal pain, acute, nonlocalized. COMPARISON: 12/21/2023. TECHNIQUE: Spiral imaging was obtained of the abdomen and pelvis after the uneventful infusion of approximately 100 mL of Isovue [address] scans at this facility use dose modulation, iterative reconstruction, and/or weight based dosing when appropriate to reduce radiation dose to as low as reasonably achievable. Unless otherwise stated, incidental findings identified in this report do not require routine follow-up imaging. FINDINGS: Liver: Borderline enlarged. No significant fatty infiltration, suspicious mass or lesion. Biliary: The gallbladder is unremarkable. No abnormal biliary ductal dilatation. Pancreas: No mass, organized fluid collection, or abnormal pancreatic ductal dilatation. Spleen: Borderline enlarged, measuring up to approximately 14.5 cm in maximum AP dimension. Adrenals: Unremarkable. Kidneys: No hydronephrosis, significant urinary tract calculi, or suspicious mass. GI tract: Chronic inflammatory colitis, not significantly changed from 12/21/2023, with a lower quadrant loop ileostomy and small fat-containing peristomal hernia. No abnormal dilation or other acute complication. The appendix is not confidently identified, without findings to suggest acute appendicitis. Lymph nodes: No pathologically enlarged lymph nodes. Mesentery/peritoneum: Very small volume of low-density fluid within the right lower quadrant minimally increased in volume. No organized fluid collection.. Retroperitoneum: No organized fluid collection or mass. Pelvis: The urinary bladder, uterus, and adnexa are unremarkable. Perianal cerclage again noted. Vasculature: No aneurysm or dissection. Musculoskeletal: No acute osseous findings. Report Lower thorax: Trace pleural effusions have developed since 12/21/2023 with mild dependent atelectasis. Ordering Provider: Carolyn Mcmahon FINAL REPORT Dictated: 03/08/2024 1:19 pm Dominic Pyle MD Signed (Electronic Signature): 03/08/2024 1:19 pm Signed by: Dominic Pyle MD Transcribed by: CLARICE Technologist: MAUREEN Technical Comments GFR (mL/min/1/73m2) >60 Contrast: Isovue 300 Contrast amount in ml's: 100 Rectal Contrast Given? No Normal [facility] Consent for Treatmenton 02-21 Consent for Treatment [id number] 0TIFF Normal [facility] Discharge Instructionson Discharge Instructions [id number] 0TIFF Normal [facility] ED Clinical Summaryon 2023 ED Clinical Summary [place] [id number] ED Clinical Summary Person Information Name: ROLA AGUILAR [facility] Age: 28 Years : 1995 Sex: Female Language: Iraqi PCP: NONE, XXXX Marital Status: Single Phone: [phone] Visit Id: Visit Reason: Diarrhea; Nausea; Abdominal pain; ABD PAIN - RETURN FROM A VISIT A FEW DAYS AGO WITH INCREASED PAIN AND FEELS LIKE SHE IS GOING TO PASS OUT Speciality: Acuity: 3 Enc Type: Emergency Med Service: Emergency Arrival: 03/08/2024 09:39:02 Discharge: 03/08/2024 15:41:46 LOS: 000 06:02 Checkin: 03/08/2024 09:39:02 Checkout: 03/08/2024 15:41:46 Dispo Type: Home (Routine DC) EVENTS: Event Name Event Status Request Date/Time Start Date/Time Complete Date/Time Arrive Complete 03/08/2024 09:39:02 03/08/2024 09:39:02 03/08/2024 09:39:02 Document Home Meds Request 03/08/2024 09:39:02 Triage Complete 03/08/2024 09:39:02 03/08/2024 09:51:30 03/08/2024 09:51:30 Bed Assign Complete 03/08/2024 09:43:46 03/08/2024 09:43:46 03/08/2024 09:43:46 Dr Exam Complete 03/08/2024 09:43:46 03/08/2024 09:47:47 03/08/2024 09:47:47 RN Exam Complete 03/08/2024 09:43:46 03/08/2024 09:58:56 03/08/2024 09:58:56 Registration Complete 03/08/2024 09:44:18 03/08/2024 09:44:18 03/08/2024 09:44:18 Reg Complete Request 03/08/2024 09:44:18 Reg Bed Request Complete 03/08/2024 09:44:18 03/08/2024 09:44:18 03/08/2024 09:44:18 Registration Request 03/08/2024 09:47:47 Meds Admin Complete 03/08/2024 10:05:09 03/08/2024 10:27:16 Pending Labs Complete 03/08/2024 10:05:09 03/08/2024 13:14:48 Lab Complete 03/08/2024 10:05:09 03/08/2024 10:51:06 Meds Admin Complete 03/08/2024 10:05:41 03/08/2024 10:27:17 Pending Labs Complete 03/08/2024 10:12:03 03/08/2024 13:05:27 Lab Complete 03/08/2024 10:12:03 03/08/2024 13:05:27 Urine Collect Complete 03/08/2024 10:12:03 03/08/2024 13:05:27 Pending Labs Complete 03/08/2024 10:19:12 03/08/2024 10:19:12 03/08/2024 10:51:06 Lab Complete 03/08/2024 10:19:12 03/08/2024 10:19:12 03/08/2024 10:51:06 Pending Labs Complete 03/08/2024 10:20:04 03/08/2024 10:20:04 03/08/2024 10:20:05 Meds Admin Complete 03/08/2024 11:49:28 03/08/2024 12:01:54 CT Complete 03/08/2024 11:49:28 03/08/2024 12:39:47 03/08/2024 12:51:31 Discharge Complete 03/08/2024 15:24:44 03/08/2024 15:41:51 03/08/2024 15:41:51 Transfer Complete 03/08/2024 15:41:51 03/08/2024 15:41:51 03/08/2024 15:41:51 ADDRESS: [address] [place] [phone] PHYS DOC NOTES: MEDICAL INFORMATION: Prescriptions Given: New Medications [facility]/pharmacy #[id number], [address], [place] [id number], [phone] acetaminophen-oxycodon e (Percocet 5 mg-325 mg oral tablet) 1 Tablets By Mouth every 6 hours as needed as needed for pain. Refills: 0. Medications to Continue Taking That Have Changed [facility]/pharmacy #[id number], [address], [place] [phone], [phone] START: predniSONE (predniSONE 10 mg Tab) Take 6 tablets once a day for 4 days, then 5 tablets once a day for 4 days, then 4 tablets once a day for 4 days, then 3 tablets a day for 4 days, then continue with your 20 mg prednisone daily. Refills: 0. Other Medications START: predniSONE (predniSONE 10 mg Tab) 1 Dose Separtor By Mouth As Directed. Take 5 tabs by mouth daily x5 days, 4 daily x5 days, 3 daily x5 days, 2 daily x5 days, then 1 tab daily x5 days.. Refills: 0. START: predniSONE (predniSONE 10 mg Tab) 6 tabs for 2 days,5 tabs for 2 days,4 tabs for 2 days,3 tabs for 2 days,2 tabs for 2 days,1 tab for 2 days. Refills: 0. Medications to Continue with No Changes Other Medications cyproheptadine dicyclomine (Bentyl 10 mg Cap) 2 Capsules By Mouth 4 times a day. Refills: 0. hydrOXYzine (Vistaril 25 mg Tab) 1-2 tab(s) By Mouth 4 times a day as needed as needed for anxiety. Refills: 0. iron sucrose (Venofer) metoclopramide (metoclopramide 10 mg oral tablet, disintegrating) 1 Tablets By Mouth every 6 hours as needed Nausea/Vomiting. Refills: 0. metoclopramide (Reglan) ondansetron (Zofran 4 mg Tab) 1 Tablets By Mouth every 8 hours as needed Nausea/Vomiting. Refills: 0. ondansetron (Zofran 4 mg Tab) ondansetron (Zofran ODT 4 mg Tab-Dis) 1 Tablets By Mouth every 8 hours. Refills: 0. ondansetron (Zofran ODT 4 mg Tab-Dis) 1 Tablets By Mouth every 6 hours as needed Nausea/Vomiting. Refills: 0. ondansetron (Zofran ODT 4 mg Tab-Dis) 1 Tablets By Mouth every 8 hours. Refills: 0. promethazine (promethazine 25 mg Tab) 1 Tablets By Mouth every 6 hours as needed as needed for nausea/vomiting. Refills: 0. sertraline (Zoloft) PATIENT EDUCATION INFORMATION: Instructions: Crohn's Disease; Abdominal Pain, Adult Follow up: With: Address: When: Make sure to follow-up with your primary doctor and your GI as discussed. Return to the emergency room if your pain gets worse or any new symptoms. In 3 days 03/11/2024 DIAGNOSIS: 1:Abdominal pain; 2:Exacerbation of Crohn's disease Normal [facility] ED Note-Physicianon 03-08-20 ED Note-Physician Basic Information Time Seen: Carolyn Mcmahon M.D. 03/08/2024 09:47 Chief Complaint patient presents with lower abdominal pain x 5 days with nausea and diarrhea. states that she was seen here on saturday- dx with stomach bug- pain increasing since. denies urinary symptoms. denies fevers. hx crohns History of Present Illness The patient is a 28-year-old female past medical history of Crohn's disease who presented to the emergency room with abdominal pain. The patient states the pain has been present for past few days. She points to the lower quadrant. The patient was seen in the emergency room couple days ago and discharged home. She states the pain has gotten worse. She describes the pain as squeezing. The patient denies any alleviating or aggravating factors for the pain. She reports nausea and vomiting. She states she has been having stool through the rectum which sometimes is soft sometimes is watery. She denies any blood. The patient reports chills but no fever. The patient states that she is approved for [employer]. She is currently on prednisone 20 mg daily. The patient denies any other associated symptoms. Review of Systems Additional ROS info: Except as noted in the above Review of Systems and in the History of Present Illness all other systems have been reviewed and are negative or noncontributory. Physical Exam Vitals & Measurements T: 36.5 ?C(Oral) HR: 87(Monitored) RR: 18 BP: 111/65 SpO2: 98% HT: 167 cm WT: 86.2 kg BMI: 30.91 General: alert, mild distress Skin: warm, dry, Head: no trauma, normocephalic Neck: Trachea midline, Eye: normal conjunctiva, sclera clear, Cardiovascular: regular rate and rhythm, Respiratory: Lungs CTA, respirations non labored, breath sounds equal Gastrointestinal: soft, non distended, mild generalized tenderness, ileostomy right side of the abdomen, no guarding, Extremities: no deformity, no trauma Neurological: Alert and oriented, speech normal, no focal neuro deficits Psychiatric: cooperative, affect appropriate for age, Medical Decision Making MEDICAL DECISION MAKING Number and Complexity of Problems Differential Diagnosis: [] [facility] Data External documents reviewed: [] My EKG interpretation: [] My CT interpretation: [] My X-ray interpretation: [] My Ultrasound interpretation: [] Decision rules/scores evaluated: [] Discussed with: [] Treatment and Disposition ED Course: The patient presented with abdominal pain. She was seen in the emergency room couple days ago. She does have history of Crohn's disease. More likely her pain is due to exacerbation of her Crohn's disease. Her abdomen does not appear to be surgical. Blood work reviewed. White count is normal. The CT of the abdomen and pelvis was done which shows chronic inflammatory changes in the bowel with small ascites. The patient was given IV fluid antiemetic and morphine. She was started on high-dose steroids. Solu-Medrol 125 mg were given. Will discharge patient home with prescription for Percocet for breakthrough pain. Will give her higher dose tapering prednisone. The patient is not on Entyvio yet. She states she is qualified by her insurance however she has not started it. The patient was instructed to follow-up with her GI doctor. She is instructed to return to the emergency room if her pain gets worse, vomiting recurs or any new symptoms. Shared decision making: [] Code status: [] Assessment/Plan 1. Abdominal pain (R10.9: Unspecified abdominal pain) Ordered: acetaminophen-oxycodon e, 1 tab(s), Oral, q6hr as needed for pain, 12 tab(s), Refill(s) 0, [facility]/pharmacy #[id number], 167, cm, 03/08/24 9:51:00 EDT, Height/Length Dosing, 86.2, kg, 03/08/24 9:51:00 EDT, Weight Dosing 2. Exacerbation of Crohn's disease (K50.90: Crohn's disease, unspecified, without complications) Orders: methylPREDNISolone, 125 mg = 2 mL, Injection, IV Push, Once, Stop date 03/08/24 10:04:00 EDT, STAT, Start date 03/08/24 10:04:00 EDT, 03/08/24 10:04:00 EDT morphine, 4 mg = 1 mL, Injection, IV Push, Once, Stop date 03/08/24 11:49:00 EDT, STAT, Start date 03/08/24 11:49:00 EDT, 03/08/24 11:49:00 EDT morphine, 4 mg = 1 mL, Injection, IV Push, Once, Stop date 03/08/24 10:05:00 EDT, STAT, Start date 03/08/24 10:05:00 EDT, 03/08/24 10:05:00 EDT predniSONE, See Instructions, Take 6 tablets once a day for 4 days, then 5 tablets once a day for 4 days, then 4 tablets once a day for 4 days, then 3 tablets a day for 4 days, then continue with your 20 mg prednisone daily, # 72 tab(s), Refills(s) 0, Pharmacy: [facility] promethazine 25 mg + Sodium Chloride 0.9% intravenous solution 50 mL, Injection, IV Piggyback, Once, Stop date 03/08/24 10:04:00 EDT, STAT, Start date 03/08/24 10:04:00 EDT, 153 mL/hr, Infuse over 20 minute(s) Sodium Chloride 0.9% intravenous solution, 1,000 mL, Soln-IV, IV, Once, Stop date 03/08/24 11:48:00 EDT, STAT, Start date 03/08/24 11:48:00 EDT, Infuse over 61, minute(s) Sodium Chloride 0.9 (more content not included)... [facility] Comment on above: Result Comment: Elec tronically Signed By: Lisandro Mishra, Carolyn Drake\.br\Date and Time Signed: 03/08/24 18:26 EDT ED Patient Education Noteon 03-08-2024 ED Patient Education Note Gastroenterology Abdominal Pain, Adult Pain in the abdomen (abdominal pain) can be caused by many things. Often, abdominal pain is not serious and it gets better with no treatment or by being treated at home. However, sometimes abdominal pain is serious. Your health care provider will ask questions about your medical history and do a physical exam to try to determine the cause of your abdominal pain. Follow these instructions at home: Medicines ? Take piiv-xvu-lazgxqc and prescription medicines only as told by your health care provider. ? Do not take a laxative unless told by your health care provider. General instructions ? Watch your condition for any changes. ? Drink enough fluid to keep your urine pale yellow. ? Keep all follow-up visits as told by your health care provider. This is important. Contact a health care provider if: ? Your abdominal pain changes or gets worse. ? You are not hungry or you lose weight without trying. ? You are constipated or have diarrhea for more than 2?3 days. ? You have pain when you urinate or have a bowel movement. ? Your abdominal pain wakes you up at night. ? Your pain gets worse with meals, after eating, or with certain foods. ? You are vomiting and cannot keep anything down. ? You have a fever. ? You have blood in your urine. Get help right away if: ? Your pain does not go away as soon as your health care provider told you to expect. ? You cannot stop vomiting. ? Your pain is only in areas of the abdomen, such as the right side or the left lower portion of the abdomen. Pain on the right side could be caused by appendicitis. ? You have bloody or black stools, or stools that look like tar. ? You have severe pain, cramping, or bloating in your abdomen. ? You have signs of dehydration, such as: ? Dark urine, very little urine, or no urine. ? Cracked lips. ? Dry mouth. ? Sunken eyes. ? Sleepiness. ? Weakness. ? You have trouble breathing or chest pain. Summary ? Often, abdominal pain is not serious and it gets better with no treatment or by being treated at home. However, sometimes abdominal pain is serious. ? Watch your condition for any changes. ? Take zqxj-rva-ojrhwlp and prescription medicines only as told by your health care provider. ? Contact a health care provider if your abdominal pain changes or gets worse. ? Get help right away if you have severe pain, cramping, or bloating in your abdomen. This information is not intended to replace advice given to you by your health care provider. Make sure you discuss any questions you have with your health care provider. Document Revised: 10/28/2020 Document Reviewed: 01/18/2020 [employer] Patient Education ? 2022 [employer]. Immunology Crohn's Disease Crohn's disease is a long-lasting (chronic) disease that affects the gastrointestinal (GI) tract. Crohn's disease often causes irritation and inflammation in the small intestine and the beginning of the large intestine, but it can affect any part of the GI tract. Crohn's disease is part of a group of illnesses that are known as inflammatory bowel disease (IBD). Crohn's disease may start slowly and get worse over time. Symptoms may come and go. They may also go away for months or even years at a time (remission). What are the causes? The exact cause of this condition is not known. It may involve a response that causes your body's disease-fighting system (immune system) to attack healthy cells and tissues (autoimmune response). Bacteria, genes, and your environment may also play a role. What increases the risk? The following factors may make you more likely to develop this condition: ? Having a family member who has Crohn's disease, another IBD, or an autoimmune condition. ? Using products that contain nicotine or tobacco, such as cigarettes and e-cigarettes. ? Being in your 20s. ? Having Eastern ancestry. What are the signs or symptoms? The main symptoms of this condition involve your GI tract. These include: ? Diarrhea. ? Pain or cramping in the abdomen commonly felt in the lower right side of the abdomen. ? Frequent watery or bloody stools. ? Constipation. This may mean having: ? Fewer bowel movements in a week than normal. ? Difficulty having a bowel movement. ? Stools that are dry, hard, or larger than normal. ? Rectal bleeding or pain. ? An urgent need to have a bowel movement. ? The feeling that you are not finished having a bowel movement. Other symptoms may include: ? Unexplained weight loss. ? Tiredness (fatigue). ? Fever. ? Nausea or appetite loss. ? Joint pain. ? Vision changes. ? Red bumps or sores on the skin. ? Sores inside the mouth. How is this diagnosed? This condition may be diagnosed based on: ? Your symptoms and medical history. ? A physical exam. ? Tests, which may include: ? Blood tests. ? Stool sample tests. (more content not included)... Normal [facility] ED Patient Summaryon 024 ED Patient Summary [address] [address] Patient Discharge Instructions Person Information Name: ROLA AGUILAR Age: 28 Years Arrival Date: 03/08/2024 09:39:02 Discharge Diagnosis: 1:Abdominal pain; 2:Exacerbation of Crohn's disease Primary Care Physician: NONE, XXXX Provider Information Primary Provider: Carolyn Mcmahon M.D. Advanced Foxing Cutting Machine Operator:None The exam and treatment you received in the Emergency Department were for an urgent problem and are not intended as complete care. It is important that you follow up with a doctor, nurse practitioner, or physician?s assistant professor surgical technology for ongoing care. If your symptoms become worse or you do not improve as expected and you are unable to reach your usual health care provider, you should return to the Emergency Department. We are available 24 hours a day. ROLA AGUILAR has been given the following list of patient education materials, prescriptions and follow-up instructions: Follow-up Instructions: With: Address: When: Make sure to follow-up with your primary doctor and your GI as discussed. Return to the emergency room if your pain gets worse or any new symptoms. In 3 days 03/11/2024 In the event that this physician does not participate in your insurance network, please consult with your insurance company to find a nearby participating provider. Patient Education Materials: Crohn's Disease; Abdominal Pain, Adult A MESSAGE TO ALL PATIENTS REGARDING OPIOIDS PRESCRIPTION OPIOIDS: WHAT YOU NEED TO KNOW Prescription opioids can be used to help relieve shguchkg-ch-xkugvh pain and are often prescribed following a surgery or injury, or for certain health conditions. These medications can be an important part of the treatment but also come with serious risks. It is important to work with your healthcare provider to make sure you are getting the safest, most effective care. WHAT ARE THE RISKS AND SIDE EFFECTS OF OPIOID USE? Prescription opioids carry serious risks of addiction and overdose, especially with prolonged use. An opioid overdose, often marked by slowed breathing, can cause sudden . The use of prescription opioids can have a number of side effects as well, even when taken as directed: ? Tolerance?meaning you might need to take more of the medication for the same pain relief ? Physical dependence?meaning you have symptoms of withdrawal when a medication is stopped ? Increased sensitivity to pain ? Constipation ? Nausea, vomiting, and dry mouth ? Sleepiness and dizziness ? Confusion ? Depression ? Low levels of testosterone that can result in lower sex drive, energy, and strength ? Itching and sweating RISKS ARE GREATER WITH: ? History of drug misuse, substance use disorder, or overdose ? Mental health conditions (such as depression or anxiety) ? Sleep apnea ? Older age (65 years and older) ? Avoid alcohol while taking prescription opioids. Also, unless specifically advised by your health care provider, medications to avoid include: ? Benzodiazepines (such as Xanax or Valium) ? Muscle relaxants (such as Soma or Flexeril) ? Hypnotics (such as Ambien or Lunesta) ? Other prescription opioids KNOW YOUR OPTIONS Talk to your health care provider about ways to manage your pain that don?t involve prescription opioids. Some of these options may actually work better and have fewer risks and side effects. Options may include: ? Pain relievers such as acetaminophen, ibuprofen, and naproxen ? Some medication that are also used for depression or seizures ? Physical therapy and exercise ? Cognitive behavioral therapy, a psychological, goal-directed approach, in which patients learn how to modify physical, behavioral, and emotional triggers of pain and stress. IF YOU ARE PRESCRIBED OPIOIDS FOR PAIN: ? Never take opioids in greater amounts or more often than prescribed. ? Follow up with your primary health care provider. o Work together to create a plan on how to manage your pain. o Talk about ways to help manage your pain that don?t involve prescription opioids. o Talk about any and all concerns and side effects. ? Help prevent misuse and abuse o Never sell or share prescription opioids. o Never use another person?s prescription opioids. ? Store prescription opioids in a secure place and out of reach of others (this may include visitors, children, friends, and family). ? Safely dispose of unused prescription opioids: Find your community drug take-back program or your pharmacy mail-back program, or flush them down the toilet, following guidance from the Food and Drug Administration (www.fda.gov/Drugs/Res ourcesForYou). ? Visit www.cdc.gov/drugoverdo se to learn about the risks of opioids abuse and overdose. ? If you believe you may be struggling with addiction, tell your health resident care technician an (more content not included)... Normal [facility] HEMATOLOGYOrdered By: SYSTEM SYSTEM on 03-08-2024 Basophils/100 WBC (Bld) 0.4 % Normal 0.0 - 2.0 % Remisol Heme Basophils/Leukocytes Auto (Bld) [Pure # fraction] 0.0 E9/L Normal 0.0 - 0.2 E9/L Remisol Heme Eosinophils (Bld) [#/Vol] 0.0 E9/L Normal 0.0 - 0.5 E9/L Remisol Heme Eosinophils/100 WBC (Bld) 0.2 % Normal 0.0 - 8.0 % Remisol Heme Erythrocyte distribution width (RBC) [Ratio] 16.8 % High 10.9 - 14.2 % Remisol Heme Hematocrit (Bld) [Volume fraction] 35.2 % Normal 34.0 - 46.0 % Remisol Heme Hemoglobin (Bld) [Mass/Vol] 11.8 g/dL Low 12.0 - 16.0 gm/dL Remisol Heme Lymphocytes (Bld) [#/Vol] 0.8 E9/L Low 1.0 - 4.0 E9/L Remisol Heme Lymphocytes/100 WBC (Bld) 12.8 % Low 14.0 - 50.0 % Remisol Heme MCH (RBC) [Entitic mass] 27.1 pg Normal 27.0 - 34.0 pg Remisol Heme MCHC (RBC) [Mass/Vol] 33.5 g/dL Normal 31.4 - 36.0 gm/dL Remisol Heme MCV (RBC) [Entitic vol] 80.9 fL Normal 80.0 - 100.0 fL Remisol Heme Monocytes (Bld) [#/Vol] 0.6 E9/L Normal 0.2 - 1.0 E9/L Remisol Heme Monocytes/100 WBC (Bld) 9.4 % Normal 4.0 - 14.0 % Remisol Heme Neutrophils (Bld) [#/Vol] 4.7 E9/L Normal 2.0 - 7.5 E9/L Remisol Heme Neutrophils/100 WBC (Bld) 77.2 % High 36.0 - 75.0 % Remisol Heme Platelet 330.0 E9/L Normal 150.0 - 500.0 E9/L Remisol Heme Platelet mean volume (Bld) [Entitic vol] 7.4 fL Normal 6.4 - 10.8 fL Remisol Heme RBC (Bld) [#/Vol] 4.3 E12/L Normal 4.3 - 5.9 E12/L Remisol Heme WBC corrected for nucl RBC Auto (Bld) [#/Vol] 6.1 E9/L Normal 4.0 - 11.0 E9/L Remisol Heme Hep Func Panelon 03-08-2024 Albumin [Mass/Vol] 3.7 g/dL Normal 3.3-5.0 [facility] Comment on above: Performed By: #### 2 [id number] #### [facility] [address] [place] [address] Albumin/Globulin (S) [Mass conc ratio] 1.0 Low 1.1-2.2 [facility] Comment on above: Performed By: #### 2 [id number] #### [facility] [address] [place] [address] ALP [Catalytic activity/Vol] 94 Int._Unit/L Normal 21-98 [facility] Comment on above: Performed By: #### 2 [id number] #### [facility] [address] [place] [address] ALT No additional P-5'-P [Catalytic activity/Vol] 11 Int._Unit/L Normal 6-46 [facility] Comment on above: Performed By: #### 2 [id number] #### [facility] [address] [place] [address] AST [Catalytic activity/Vol] 9 Int._Unit/L Normal 5-43 [facility] Comment on above: Performed By: #### 2 [id number] #### [facility] [address] [place] [address] Bilirubin [Mass/Vol] 0.3 mg/dL Normal 0.0-1.1 [facility] Comment on above: Performed By: #### 2 [id number] #### [facility] [address] [place] [address] Bilirubin.direct [Mass/Vol] 0.0 mg/dL Normal 0.0-0.4 [facility] Comment on above: Performed By: #### 2 [id number] #### [facility] [address] [place] [address] Bilirubin.indirect [Mass or moles/Vol] 0.3 mg/dL Normal 0.1-0.9 [facility] Comment on above: Performed By: #### 2 [id number] #### [facility] [address] [place] [address] Globulin (S) [Mass/Vol] 3.7 g/dL Normal 1.4-4.0 [facility] Comment on above: Performed By: #### 2 [id number] #### [facility] [address] [place] [address] Protein [Mass/Vol] 7.4 g/dL Normal 6.0-7.8 [facility] Comment on above: Performed By: #### 2 [id number] #### [facility] [address] [place] [address] Lipase Levelon 03-08-2024 Lipase [Catalytic activity/Vol] 31 U/L Normal 13-58 [facility] Comment on above: Performed By: #### 2 [id number] #### [facility] [address] [place] [address] PT & PTTon 03-08-2024 aPTT Coag (PPP) [Time] 30.3 second(s) Normal 25.1-36.5 [facility] Comment on above: Result Comment: Para meter 15 days - 4 weeks 1 - 5 months 6 - 11 months 1 - 5 years 6 - 10 years 11 - 17 years PTT Mean: 35.4 (27.6-45.6) Mean: 33.5 (24.8-40.7) Mean: 32.4 (25.1-40.7) Mean: 31.6 (24.0-39.2) Mean: 31.6 (26.9-38.7) Mean: 31.0 (24.6-38.4) Pediatric Reference ranges were obtained from a study by Charli Araya et al. prepared from 1437 samples obtained at 7 different centers using the same coagulation reagent and instrumentation as [facility]. Currently there are no coagulation studies available worldwide for children to 14 days, and no normal ranges. Heparin therapeutic range (represented by Anti-Factor Xa activity of 0.2 - 0.4 U/mL) corresponds to PTT of 56.6 - 109.0 sec. Performed By: #### 1 [id number] #### [facility] [address] [place] [address] INR Coag (PPP) [Relative time] 1.10 {INR} Invalid Interpretation Code [facility] Comment on above: Result Comment: INR results are specifically intended to assess patients stabilized on long-term Anticoagulation therapy suggested INR?s ?Less Intensive Anticoagulation? 2.0 ? 3.0 Conventional Range 3.0 ? 4.5 Performed By: #### 1 [id number] #### [facility] [address] [place] [address] PT Coag (PPP) [Time] 12.3 second(s) Normal 9.4-12.5 [facility] Comment on above: Result Comment: 15 d ays - 4 weeks 1 - 5 months 6 -11 months 1- 5 years 6-10 years 11 -17 years Mean: 11.2 (9.5-12.6) Mean: 11.0 (9.7-12.8) Mean: 11.0 (9.8-13.0) Mean: 11.3 (9.9-13.4) Mean: 11.7 (10.0-14.6) Mean: 11.8 (10.0 - 14.1) Pediatric Reference ranges were obtained from a study by Charli Araya et al. prepared from 1437 samples obtained at 7 different centers using the same coagulation reagent and instrumentation as [facility]. Currently there are no coagulation studies available worldwide for children to 14 days, and no normal ranges. Performed By: #### 1 [id number] #### [facility] Laboratory [address] [place] [address] SEROLOGYOrdered By: Rosalba Cadet on 03-08-2024 HCG.beta subunit (U) [Moles/Vol] Negative Normal [facility] Man Sero U BetaHcg Qualon 03-08-2024 HCG.beta subunit (U) [Moles/Vol] Negative Normal [facility] Comment on above: Performed By: #### 2 [id number] #### [facility] [address] [place] [address] UA with Cult Rflxon 03-08-20 24 Bacteria Auto Ql (U) Trace Normal Trace Fish [facility] Comment on above: Performed By: #### 4 [id number] #### [facility] [address] [place] [address] Bilirubin Ql (U) Negative Normal Negative [facility] Comment on above: Performed By: #### 4 [id number] #### [facility] [address] [place] [address] Clarity (U) Clear Normal Clear [facility] Comment on above: Performed By: #### 4 [id number] #### [facility] [address] [place] [address] Color (U) Colorless Abnormal Yellow [facility] Comment on above: Result Comment: Micr oscopic readings are only performed on those samples that meet specific criteria set forth by [facility]. Performed By: #### 4 [id number] #### [facility] [address] [place] [address] Epithelial cells.squamous Auto (Urine sed) [#/Area] 0-2 Invalid Interpretation Code [facility] Comment on above: Performed By: #### 4 [id number] #### [facility] [address] [place] [address] Glucose Ql (U) Negative Normal Negative [facility] Comment on above: Performed By: #### 4 [id number] #### [facility] [address] [place] [address] Hemoglobin Auto test strip (U) [Mass/Vol] Negative Normal Negative [facility] Comment on above: Performed By: #### 4 [id number] #### [facility] [address] [place] [address] Ketones Auto test strip Ql (U) Negative Normal Negative [facility] Comment on above: Performed By: #### 4 [id number] #### [facility] [address] [place] [address] Leukocyte esterase Auto test strip Ql (U) 25 Cristela/uL Normal Negative [facility] Comment on above: Performed By: #### 4 [id number] #### [facility] [address] [place] [address] Mucus Auto Ql (U) Negative Normal Negative [facility] Comment on above: Performed By: #### 4 [id number] #### [facility] [address] [place] [address] Nitrite Auto test strip Ql (U) Negative Normal Negative [facility] Comment on above: Performed By: #### 4 [id number] #### [facility] [address] [place] [address] pH (U) 5.5 [pH] Invalid Interpretation Code 5.0-9.0 [facility] Comment on above: Performed By: #### 4 [id number] #### [facility] [address] [place] [address] Protein Ql (U) Negative Normal Negative [facility] Comment on above: Performed By: #### 4 [id number] #### [facility] [address] [place] [address] RBC Ql (U) 0-3 Normal 0-3 [facility] Comment on above: Performed By: #### 4 [id number] #### [facility] [address] [place], [place] [id number] Specific gravity (U) [Rel density] 1.007 Invalid Interpretation Code 1.005-1.030 [facility] Comment on above: Performed By: #### 4 [id number] #### [facility] [address] [place], [place] [address] Urobilinogen (U) [Mass/Vol] Negative Normal Negative [facility] Comment on above: Performed By: #### 4 [id number] #### [facility] [address] [place] [address] WBC Auto (Urine sed) [#/Area] 0-5 Normal 0-5 [facility] Comment on above: Performed By: #### 4 [id number] #### [facility] [address] [place] [address] Type of Urine collection method Clean Catch Normal [facility] Comment on above: Performed By: #### 4 [id number] #### [facility] [address] [place] [address] URINALYSISOrdered By: SYSTEM SYSTEM on 03-08-2024 Bacteria Auto Ql (U) Trace /HPF Normal Trace/HPF [facility] UA Auto SS Bilirubin Ql (U) Negative Normal Negativemg/dL [facility] UA Auto SS Clarity (U) Clear (03/08/24 11:57 AM) Normal Clear [facility] UA Auto SS Color (U) Colorless 1 *ABN* (03/08/24 11:57 AM) Invalid Interpretation Code Yellow [facility] UA Auto SS Comment on above: Interpretive Data: M icroscopic readings are only performed on those samples that meet specific criteria set forth by [facility]. Epithelial cells.squamous Auto (Urine sed) [#/Area] 0-2 graded/HPF Invalid Interpretation Code [facility] UA Auto SS Glucose Ql (U) Negative Normal Negativemg/dL [facility] UA Auto SS Hemoglobin Auto test strip (U) [Mass/Vol] Negative Normal Negativemg/dL [facility] UA Aut o SS Ketones Auto test strip Ql (U) Negative Normal Negativemg/dL [facility] UA Auto SS Leukocyte esterase Auto test strip Ql (U) 25 Cristela/uL Cristela/uL Normal NegativeLeu/uL [facility] UA Auto SS Mucus Auto Ql (U) Negative Normal Negativegr aded /LPF [facility] UA Auto SS Nitrite Auto test strip Ql (U) Negative Normal Negativemg/dL [facility] UA Auto SS pH (U) 5.5 *NA* (03/08/24 11:57 AM) Invalid Interpretation Code 5.0 - 9.0 [facility] UA Auto SS Protein Ql (U) Negative Normal Negativemg/dL [facility] UA Auto SS RBC Ql (U) 0-3 graded/HPF Normal 0-3graded/HPF [facility] UA Auto SS Specific gravity (U) [Rel density] 1.007 *NA* (03/08/24 11:57 AM) Invalid Interpretation Code 1.005 - 1.030 [facility] UA Auto SS Urobilinogen (U) [Mass/Vol] Negative Normal Negativemg/dL [facility] UA Auto SS WBC Auto (Urine sed) [#/Area] 0-5 graded/HPF Normal 0-5graded/HPF [facility] UA Auto SS URINALYSISOrdered By: Carolyn Mcmahon on 03-08-2024 UA Spec Desc Clean Catch (03/08/24 11:57 AM) Normal [facility] UA Auto SS eGFRon 03-08-2024 eGFR 120 mL/min/1.73 m2 Normal >=59 [facility] Comment on above: Order Comment: Order added by Discern Expert. Performed By: #### 1 [id number] #### [facility] [address] [place] [address] C Urineon 03-06-2024 Bacteria identified Cx Nom (U) Microbiology PROCEDURE: Urine Culture [R1] SOURCE: U CleanCatch BODY SITE: COLLECTED DATE/TIME: 03/04/2024 11:16 EDT RECEIVED DATE/TIME: 03/04/2024 14:21 EDT START DATE/TIME: 03/04/2024 14:21 EDT FREE TEXT SOURCE: Lisandro Mishra, Carolyn Mcmahon M.D., Carolyn Drake FINAL REPORTS Final Report [] Verified Date/Time: 03/06/2024 10:18 EDT <10,000 cfu/ml Mixed skin contaminants Performing Locations R1: This test was performed at: [facility], [address] [place] [address], [id number] , , Normal [facility] Comment on above: Performed By: #### 2 [id number] #### [facility] [address] [place] [address] B hCG Qualon 03-04-2024 Beta HCG ( test) Ql Negative [facility] Comment on above: Performed By: #### 2 [id number] #### [facility] [address] [place] [address] BMPon 03-04-2024 Anion gap [Moles/Vol] 13 mmol/L Normal 6-16 [facility] Comment on above: Performed By: #### 2 [id number] #### [facility] [address] [place] [address] Calcium [Mass/Vol] 9.4 mg/dL Normal 8.9-11.1 [facility] Comment on above: Performed By: #### 2 [id number] #### [facility] [address] [place] [address] Chloride [Moles/Vol] 102 mmol/L Normal 101-111 Fish [facility] Comment on above: Performed By: #### 2 [id number] #### [facility] [address] [place] [address] CO2 [Moles/Vol] 26 mmol/L Normal 21-31 [facility] Comment on above: Performed By: #### 2 [id number] #### [facility] [address] [place] [address] Creatinine [Mass/Vol] 0.7 mg/dL Normal 0.5-1.3 [facility] Comment on above: Performed By: #### 2 [id number] #### [facility] [address] [place] [address] Glucose [Mass/Vol] 99 mg/dL Normal 55-199 [facility] Comment on above: Performed By: #### 2 [id number] #### [facility] [address] [place] [address] Potassium [Moles/Vol] 3.6 mmol/L Normal 3.5-5.3 [facility] Comment on above: Performed By: #### 2 [id number] #### [facility] [address] [place] [address] Sodium [Moles/Vol] 137 mmol/L Normal 135-145 [facility] Comment on above: Performed By: #### 2 [id number] #### [facility] [address] [place] [address] Urea nitrogen [Mass/Vol] 7 mg/dL Normal 5-21 [facility] Comment on above: Performed By: #### 2 [id number] #### [facility] [address] [place] [address] Urea nitrogen/Creatinine [Mass ratio] 10 No Units Normal 10-20 [facility] Comment on above: Performed By: #### 2 [id number] #### [facility] [address] [place] [address] CBC w/ Auto Diffon 4 Basophils/100 WBC (Bld) 0.1 % Normal 0.0-2.0 [facility] Comment on above: Performed By: #### 2 [id number] #### [facility] [address] [place] [address] Basophils/Leukocytes Auto (Bld) [Pure # fraction] 0.0 E9/L Normal 0.0-0.2 [facility] Comment on above: Performed By: #### 2 [id number] #### [facility] [address] [place] [address] Eosinophils (Bld) [#/Vol] 0.1 E9/L Normal 0.0-0.5 [facility] Comment on above: Performed By: #### 2 [id number] #### [facility] [address] [place] [address] Eosinophils/100 WBC (Bld) 0.8 % Normal 0.0-8.0 [facility] Comment on above: Performed By: #### 2 [id number] #### [facility] [address] [place] [address] Erythrocyte distribution width (RBC) [Ratio] 17.0 % High 10.9-14.2 [facility] Comment on above: Performed By: #### 2 [id number] #### [facility] [address] [place] [address] Hematocrit (Bld) [Volume fraction] 38.6 % Normal 34.0-46.0 [facility] Comment on above: Performed By: #### 2 [id number] #### [facility] [address] [place] [address] Hemoglobin (Bld) [Mass/Vol] 12.8 g/dL Normal 12.0-16.0 [facility] Comment on above: Performed By: #### 2 [id number] #### [facility] [address] [place] [address] Lymphocytes (Bld) [#/Vol] 1.6 E9/L Normal 1.0-4.0 [facility] Comment on above: Performed By: #### 2 [id number] #### [facility] [address] [place] [address] Lymphocytes/100 WBC (Bld) 16.0 % Normal 14.0-50.0 [facility] Comment on above: Performed By: #### 2 [id number] #### [facility] [address] [place] [address] MCH (RBC) [Entitic mass] 26.9 pg Low 27.0-34.0 [facility] Comment on above: Performed By: #### 2 [id number] #### [facility] [address] [place] [address] MCHC (RBC) [Mass/Vol] 33.2 g/dL Normal 31.4-36.0 [facility] Comment on above: Performed By: #### 2 [id number] #### [facility] [address] [place] [address] MCV (RBC) [Entitic vol] 81.1 fL Normal 80.0-100.0 [facility] Comment on above: Performed By: #### 2 [id number] #### [facility] [address] [place] [address] Monocytes (Bld) [#/Vol] 0.9 E9/L Normal 0.2-1.0 [facility] Comment on above: Performed By: #### 2 [id number] #### [facility] [address] [place] [address] Neutrophils (Bld) [#/Vol] 7.2 E9/L Normal 2.0-7.5 [facility] Comment on above: Performed By: #### 2 [id number] #### [facility] [address] [place] [address] Neutrophils/100 WBC (Bld) 74.2 % Normal 36.0-75.0 [facility] Comment on above: Performed By: #### 2 [id number] #### [facility] [address] [place] [address] Platelet 410.0 E9/L Normal 150.0-500.0 [facility] Comment on above: Performed By: #### 2 [id number] #### [facility] [address] [place] [address] Platelet mean volume (Bld) [Entitic vol] 7.2 fL Normal 6.4-10.8 [facility] Comment on above: Performed By: #### 2 [id number] #### [facility] [address] [place] [address] RBC (Bld) [#/Vol] 4.8 E12/L Normal 4.3-5.9 [facility] Comment on above: Performed By: #### 2 [id number] #### [facility] [address] [place] [address] WBC corrected for nucl RBC Auto (Bld) [#/Vol] 9.8 E9/L Normal 4.0-11.0 [facility] Comment on above: Performed By: #### 2 [id number] #### [facility] [address] [place] [address] CHEMISTRYOrdered By: SYSTEM SYSTEM on 03-04-2024 Albumin [Mass/Vol] 4.0 g/dL Normal 3.3 - 5.0 gm/dL Remisol Chem Albumin/Globulin [Mass ratio] 1.0 {ratio} Low 1.1 - 2.2 Rem[facility] Chem ALP [Catalytic activity/Vol] 91 [iU]/d Normal 21 - 98 Int._Unit/L Remisol Chem ALT No additional P-5'-P [Catalytic activity/Vol] 15 [iU]/d Normal 6 - 46 Int._Unit/L [facility] Chem Anion gap [Moles/Vol] 13 mmol/L Normal 6 - 16 mEq/L Rem[facility] Chem AST [Catalytic activity/Vol] 9 [iU]/d Normal 5 - 43 Int._Unit/L [facility] Chem Bilirubin [Mass/Vol] 0.7 mg/dL Normal 0.0 - 1 .1 mg/dL Rem[facility] Chem Bilirubin.direct [Mass/Vol] 0.1 mg/dL Normal 0.0 - 0.4 mg/dL Rem[facility] Chem Bilirubin.indirect [Mass or moles/Vol] 0.6 mg/dL Normal 0.1 - 0.9 mg/dL Rem[facility] Chem Calcium [Mass/Vol] 9.4 mg/dL Normal 8.9 - 11. 1 mg/dL [facility] Chloride [Moles/Vol] 102 mmol/L Normal 101 - 1 11 mmol/L Rem[facility] Chem CO2 [Moles/Vol] 26 mmol/L Normal 21 - 31 mmol/L Remis ol Chem Creatinine [Mass/Vol] 0.7 mg/dL Normal 0.5 - 1.3 mg/dL Remisol Chem eGFR 120 mL/min/1.73 m2 Normal >=59mL/mi n/1.7 3 m2 Rem[facility] Chem Globulin (S) [Mass/Vol] 3.9 g/dL Normal 1.4 - 4.0 gm/dL Rem[facility] Chem Glucose [Mass/Vol] 99 mg/dL Normal 55 - 199 mg/dL Re misol Chem Lipase [Catalytic activity/Vol] 36 U/L Normal 13 - 58 unit/L Remisol Chem Magnesium [Mass/Vol] 1.6 mg/dL Normal 1.3 - 2 .4 mg/dL Remisol Chem Potassium [Moles/Vol] 3.6 mmol/L Normal 3.5 - 5.3 mmol/L Remisol Chem Protein [Mass/Vol] 7.9 g/dL High 6.0 - 7.8 gm/dL Rem[facility] Chem Sodium [Moles/Vol] 137 mmol/L Normal 135 - 145 mmol/L Rem[facility] Chem Urea nitrogen [Mass/Vol] 7 mg/dL Normal 5 - 21 mg/dL Rem[facility] Chem Urea nitrogen/Creatinine [Mass ratio] 10 mg/mg Normal 10 - 20 Remisol Chem Consent for Treatmenton 02-21 Consent for Treatment [id number] [id number] Normal [facility] Discharge Instructionson Discharge Instructions [id number]. [id number] Normal [facility] ED Clinical Summaryon 2023 ED Clinical Summary [address] [address] ED Clinical Summary Person Information Name: ROLA AGUILAR [place] Age: 28 Years : 1995 Sex: Female Language: Iraqi PCP: NONE, XXXX Marital Status: Single Phone: [phone] Visit Id: Visit Reason: Skin problem; Diarrhea; Vomiting; Abdominal pain; scar reopened Speciality: Acuity: 3 Enc Type: Emergency Med Service: Emergency Arrival: 03/04/2024 09:14:32 Discharge: 03/04/2024 13:13:37 LOS: 000 03:59 Checkin: 03/04/2024 09:14:32 Checkout: 03/04/2024 13:13:37 Dispo Type: Home (Routine DC) EVENTS: Event Name Event Status Request Date/Time Start Date/Time Complete Date/Time Arrive Complete 03/04/2024 09:14:32 03/04/2024 09:14:32 03/04/2024 09:14:32 Document Home Meds Request 03/04/2024 09:14:32 Triage Complete 03/04/2024 09:14:32 03/04/2024 09:30:22 03/04/2024 09:30:22 Registration Complete 03/04/2024 09:17:14 03/04/2024 09:17:14 03/04/2024 09:17:14 Reg Complete Request 03/04/2024 09:17:14 Reg Bed Request Complete 03/04/2024 09:17:14 03/04/2024 09:17:14 03/04/2024 09:17:14 Bed Assign Complete 03/04/2024 09:17:55 03/04/2024 09:17:55 03/04/2024 09:17:55 Dr Exam Complete 03/04/2024 09:17:55 03/04/2024 09:18:25 03/04/2024 09:18:25 RN Exam Complete 03/04/2024 09:17:55 03/04/2024 10:35:07 03/04/2024 10:35:07 Registration Start 03/04/2024 09:18:25 03/04/2024 09:29:52 Meds Admin Complete 03/04/2024 09:32:45 03/04/2024 09:46:24 Pending Labs Complete 03/04/2024 09:32:45 03/04/2024 11:36:22 Lab Complete 03/04/2024 09:32:45 03/04/2024 10:05:16 Pending Labs Complete 03/04/2024 09:47:02 03/04/2024 09:47:02 03/04/2024 10:05:16 Lab Complete 03/04/2024 09:47:02 03/04/2024 09:47:02 03/04/2024 10:05:16 Pending Labs Complete 03/04/2024 09:47:34 03/04/2024 09:47:34 03/04/2024 09:47:34 Pending Labs Collected 03/04/2024 11:36:22 03/04/2024 11:36:22 Lab Collected 03/04/2024 11:36:22 03/04/2024 11:36:22 Discharge Complete 03/04/2024 12:58:27 03/04/2024 13:13:46 03/04/2024 13:13:46 Transfer Complete 03/04/2024 13:13:47 03/04/2024 13:13:47 03/04/2024 13:13:47 ADDRESS: [address] [place] [phone] PHYS DOC NOTES: MEDICAL INFORMATION: Prescriptions Given: New Medications [facility]/pharmacy #[id number], [address], [place] [phone], [phone] dicyclomine (Bentyl 10 mg Cap) 2 Capsules By Mouth 4 times a day. Refills: 0. Medications to Continue Taking That Have Changed [facility]/pharmacy #[id number], [address] [place], [place] [phone], [phone] START: ondansetron (Zofran ODT 4 mg Tab-Dis) 1 Tablets By Mouth every 6 hours as needed Nausea/Vomiting. Refills: 0. Other Medications START: ondansetron (Zofran 4 mg Tab) START: ondansetron (Zofran 4 mg Tab) 1 Tablets By Mouth every 8 hours as needed Nausea/Vomiting. Refills: 0. START: ondansetron (Zofran ODT 4 mg Tab-Dis) 1 Tablets By Mouth every 8 hours. Refills: 0. START: ondansetron (Zofran ODT 4 mg Tab-Dis) 1 Tablets By Mouth every 8 hours. Refills: 0. Medications to Continue with No Changes Other Medications cyproheptadine hydrOXYzine (Vistaril 25 mg Tab) 1-2 tab(s) By Mouth 4 times a day as needed as needed for anxiety. Refills: 0. iron sucrose (Venofer) metoclopramide (metoclopramide 10 mg oral tablet, disintegrating) 1 Tablets By Mouth every 6 hours as needed Nausea/Vomiting. Refills: 0. metoclopramide (Reglan) predniSONE (predniSONE 10 mg Tab) 1 Dose Separtor By Mouth As Directed. Take 5 tabs by mouth daily x5 days, 4 daily x5 days, 3 daily x5 days, 2 daily x5 days, then 1 tab daily x5 days.. Refills: 0. predniSONE (predniSONE 10 mg Tab) 6 tabs for 2 days,5 tabs for 2 days,4 tabs for 2 days,3 tabs for 2 days,2 tabs for 2 days,1 tab for 2 days. Refills: 0. promethazine (promethazine 25 mg Tab) 1 Tablets By Mouth every 6 hours as needed as needed for nausea/vomiting. Refills: 0. sertraline (Zoloft) PATIENT EDUCATION INFORMATION: Instructions: Diarrhea, Adult; Nausea and Vomiting, Adult; Abdominal Pain, Adult Follow up: With: Address: When: Make sure to follow-up with your primary doctor and your GI doctor as discussed. Return to the emergency room if your pain gets worse, vomiting recurs or any new symptoms. In 3 days 03/07/2024 DIAGNOSIS: 1:Abdominal pain; 2:Vomiting and diarrhea; Diarrhea, unspecified Normal [facility] ED Note-Physicianon 03-04-20 ED Note-Physician Basic Information Time Seen: Carolyn Mcmahon M.D. 03/04/2024 09:18 Chief Complaint lower abdominal pain for last cpl weeks from [place], last few hours pain worsening. noticed opening from old scar from october History of Present Illness The patient is a 28-year-old female past medical history of Crohn's disease who presented to the emergency room with abdominal pain, vomiting and diarrhea. The patient states for past couple of weeks she has been having some discomfort in her abdomen and for the past 36 hours her abdominal pain has gotten worse. The patient describes the pain as something pulling from the inside . The patient states the pain is waxing and waning. She points to the lower quadrant for the abdominal pain. The patient states she is not sure if this is her Crohn's disease or if it is related to her in October. The patient states she had a in October at [facility]. She states look like the scar is open in one spot. There is no drainage. The patient states she has felt hot. She reports chills. The patient states that diarrhea is watery. She denies any black or bloody stool. The patient reports nausea and vomiting. She denies any vomiting blood. The patient states she is on prednisone 20 mg daily for her Crohn's disease. The patient denies any recent traveling. She denies any bad food. The patient denies any sick contact. The patient denies any other associated symptoms. Review of Systems Additional ROS info: Except as noted in the above Review of Systems and in the History of Present Illness all other systems have been reviewed and are negative or noncontributory. Physical Exam Vitals & Measurements T: 36.9 ?C(Oral) HR: 88(Monitored) RR: 16 BP: 114/76 SpO2: 100% HT: 167 cm WT: 82.6 kg BMI: 29.62 General: alert, mild distress Skin: warm, dry, Head: no trauma, normocephalic Neck: Trachea midline, no tenderness, supple Eye: normal conjunctiva, sclera clear, PERRL, EOMI, vision unchanged ENMT: Oral mucosa moist, no pharyngeal erythema or exudate Cardiovascular: regular rate and rhythm, Respiratory: Lungs CTA, respirations non labored, breath sounds equal Gastrointestinal: Ileostomy in place, soft, non distended, mild to moderate generalized tenderness, no guarding, normal bowel sounds, old surgical scar has a 0.5 cm wound with no drainage. No erythema around it. No fluctuation appreciated with palpation. No induration. Extremities: no deformity, no trauma Neurological: Alert and oriented, speech normal, no focal neuro deficits Psychiatric: cooperative, affect appropriate for age, Medical Decision Making MEDICAL DECISION MAKING Number and Complexity of Problems Differential Diagnosis: [] [facility] Data External documents reviewed: [] My EKG interpretation: [] My CT interpretation: [] My X-ray interpretation: [] My Ultrasound interpretation: [] Decision rules/scores evaluated: [] Discussed with: [] Treatment and Disposition ED Course: The patient presented with abdominal pain vomiting and diarrhea. More likely her symptoms are due to viral gastroenteritis. Less likely exacerbation of her Crohn's disease. The patient states she saw her GI doctor couple days ago and told him about symptoms and he did not seem to be impressed. Her abdomen is soft with mild generalized tenderness. The blood work reviewed. White count is normal. The patient is afebrile. Her abdomen is nonsurgical. The patient was given IV fluid pain medication antiemetic and her symptoms improved. Patient felt better. The wound has no drainage, no signs of infection. Will discharge patient home with prescription for Zofran and Bentyl. Will have her follow-up with primary doctor and GI. She is instructed to return to the emergency room if her symptoms get worse, vomiting recurs or any new symptoms. Shared decision making: [] Code status: [] Assessment/Plan 1. Abdominal pain (R10.9: Unspecified abdominal pain) 2. Vomiting and diarrhea (R11.10: Vomiting, unspecified) Diarrhea, unspecified (R19.7: Diarrhea, unspecified) Orders: dicyclomine, 20 mg = 2 cap(s), Oral, QID, # 20 cap(s), Refills(s) 0, Pharmacy: [facility]/pharmacy #[id number], 167, cm, 03/04/24 9:30:00 EDT, Height/Length Dosing, 82.6, kg, 03/04/24 9:30:00 EDT, Weight Dosing famotidine, 20 mg = 2 mL, Soln-IV, IV Push, Once, Stop date 03/04/24 9:32:00 EDT, STAT, Start date 03/04/24 9:32:00 EDT, 03/04/24 9:32:00 EDT morphine, 4 mg = 1 mL, Injection, IV Push, Once, Stop date 03/04/24 9:32:00 EDT, STAT, Start date 03/04/24 9:32:00 EDT, 03/04/24 9:32:00 EDT ondansetron, 4 mg = 2 mL, Injection, IV Push, Once, Stop date 03/04/24 9:32:00 EDT, STAT, Start date 03/04/24 9:32:00 EDT, 03/04/24 9:32:00 EDT ondansetron, 4 mg = 1 tab(s), Oral, q6hr, PRN Nausea/Vomiting, # 12 tab(s), Refills(s) 0, Pharmacy: [facility]/pharmacy #[id number], 167, cm, 03/04/24 9:30:00 EDT, Height/Length Dosing, 82.6, kg, 03/04/24 9:30:00 EDT, Weight Dosing Sodiu (more content not included)... Normal [facility] Comment on above: Result Comment: Elec tronically Signed By: Carolyn Mcmahon M.D.\.br\Date and Time Signed: 03/04/24 13:44 EDT ED Patient Education Noteon 03-04-2024 ED Patient Education Note Gastroenterology Nausea and Vomiting, Adult Nausea is the feeling that you have an upset stomach or that you are about to vomit. As nausea gets worse, it can lead to vomiting. Vomiting is when stomach contents forcefully come out of your mouth as a result of nausea. Vomiting can make you feel weak and cause you to become dehydrated. Dehydration can make you feel tired and thirsty, cause you to have a dry mouth, and decrease how often you urinate. Older adults and people with other diseases or a weak disease-fighting system (immune system) are at higher risk for dehydration. It is important to treat your nausea and vomiting as told by your health care provider. Follow these instructions at home: Watch your symptoms for any changes. Tell your health care provider about them. Eating and drinking ? Take an oral rehydration solution (ORS). This is a drink that is sold at pharmacies and retail stores. ? Drink clear fluids slowly and in small amounts as you are able. Clear fluids include water, ice chips, low-calorie sports drinks, and fruit juice that has water added (diluted fruit juice). ? Eat bland, krlu-ho-rvhweu foods in small amounts as you are able. These foods include bananas, applesauce, rice, lean meats, toast, and crackers. ? Avoid fluids that contain a lot of sugar or caffeine, such as energy drinks, sports drinks, and soda. ? Avoid alcohol. ? Avoid spicy or fatty foods. General instructions ? Take snkv-nmj-ajgyfym and prescription medicines only as told by your health care provider. ? Drink enough fluid to keep your urine pale yellow. ? Wash your hands often using soap and water for at least 20 seconds. If soap and water are not available, use hand judicial administrative assistant. ? Make sure that everyone in your household washes their hands well and often. ? Rest at home while you recover. ? Watch your condition for any changes. ? Take slow and deep breaths when you feel nauseous. ? Keep all follow-up visits. This is important. Contact a health care provider if: ? Your symptoms get worse. ? You have new symptoms. ? You have a fever. ? You cannot drink fluids without vomiting. ? Your nausea does not go away after 2 days. ? You feel light-headed or dizzy. ? You have a headache. ? You have muscle cramps. ? You have a rash. ? You have pain while urinating. Get help right away if: ? You have pain in your chest, neck, arm, or jaw. ? You feel extremely weak or you faint. ? You have persistent vomiting. ? You have vomit that is bright red or looks like black coffee grounds. ? You have bloody or black stools (feces) or stools that look like tar. ? You have a severe headache, a stiff neck, or both. ? You have severe pain, cramping, or bloating in your abdomen. ? You have difficulty breathing, or you are breathing very quickly. ? Your heart is beating very quickly. ? Your skin feels cold and clammy. ? You feel confused. ? You have signs of dehydration, such as: ? Dark urine, very little urine, or no urine. ? Cracked lips. ? Dry mouth. ? Sunken eyes. ? Sleepiness. ? Weakness. These symptoms may be an emergency. Get help right away. Call 911. ? Do not wait to see if the symptoms will go away. ? Do not drive yourself to the hospital. Summary ? Nausea is the feeling that you have an upset stomach or that you are about to vomit. As nausea gets worse, it can lead to vomiting. Vomiting can make you feel weak and cause you to become dehydrated. ? Follow instructions from your health care provider about eating and drinking to prevent dehydration. ? Take wujq-bdz-ocrncds and prescription medicines only as told by your health care provider. ? Contact your health care provider if your symptoms get worse, or you have new symptoms. ? Keep all follow-up visits. This is important. This information is not intended to replace advice given to you by your health care provider. Make sure you discuss any questions you have with your health care provider. Document Revised: 03/16/2022 Document Reviewed: 03/16/2022 [employer] Patient Education ? 2022 [employer]. Abdominal Pain, Adult Pain in the abdomen (abdominal pain) can be caused by many things. Often, abdominal pain is not serious and it gets better with no treatment or by being treated at home. However, sometimes abdominal pain is serious. Your health care provider will ask questions about your medical history and do a physical exam to try to determine the cause of your abdominal pain. Follow these instructions at home: Medicines ? Take evey-mme-kgviuae and prescription medicines only as told by your health care provider. ? Do not take a laxative unless told by your health care provider. General instructions ? Watch your condition for any changes. ? Drink enough fluid to keep your urine pale yellow. ? Keep all follow-up visits as told by your h (more content not included)... Normal [facility] ED Patient Summaryon 024 ED Patient Summary [place] [id number] Patient Discharge Instructions Person Information Name: ROLA AGUILAR Age: 28 Years Arrival Date: 03/04/2024 09:14:32 Discharge Diagnosis: 1:Abdominal pain; 2:Vomiting and diarrhea; Diarrhea, unspecified Primary Care Physician: NONE, XXXX Provider Information Primary Provider: Carolyn Mcmahon M.D. Advanced Foxing Cutting Machine Operator:None The exam and treatment you received in the Emergency Department were for an urgent problem and are not intended as complete care. It is important that you follow up with a doctor, nurse practitioner, or physician?s assistant professor surgical technology for ongoing care. If your symptoms become worse or you do not improve as expected and you are unable to reach your usual health care provider, you should return to the Emergency Department. We are available 24 hours a day. ROLA AGUILAR has been given the following list of patient education materials, prescriptions and follow-up instructions: Follow-up Instructions: With: Address: When: Make sure to follow-up with your primary doctor and your GI doctor as discussed. Return to the emergency room if your pain gets worse, vomiting recurs or any new symptoms. In 3 days 03/07/2024 In the event that this physician does not participate in your insurance network, please consult with your insurance company to find a nearby participating provider. Patient Education Materials: Diarrhea, Adult; Nausea and Vomiting, Adult; Abdominal Pain, Adult A MESSAGE TO ALL PATIENTS REGARDING OPIOIDS PRESCRIPTION OPIOIDS: WHAT YOU NEED TO KNOW Prescription opioids can be used to help relieve pnksalcy-pk-lhellp pain and are often prescribed following a surgery or injury, or for certain health conditions. These medications can be an important part of the treatment but also come with serious risks. It is important to work with your healthcare provider to make sure you are getting the safest, most effective care. WHAT ARE THE RISKS AND SIDE EFFECTS OF OPIOID USE? Prescription opioids carry serious risks of addiction and overdose, especially with prolonged use. An opioid overdose, often marked by slowed breathing, can cause sudden . The use of prescription opioids can have a number of side effects as well, even when taken as directed: ? Tolerance?meaning you might need to take more of the medication for the same pain relief ? Physical dependence?meaning you have symptoms of withdrawal when a medication is stopped ? Increased sensitivity to pain ? Constipation ? Nausea, vomiting, and dry mouth ? Sleepiness and dizziness ? Confusion ? Depression ? Low levels of testosterone that can result in lower sex drive, energy, and strength ? Itching and sweating RISKS ARE GREATER WITH: ? History of drug misuse, substance use disorder, or overdose ? Mental health conditions (such as depression or anxiety) ? Sleep apnea ? Older age (65 years and older) ? Avoid alcohol while taking prescription opioids. Also, unless specifically advised by your health care provider, medications to avoid include: ? Benzodiazepines (such as Xanax or Valium) ? Muscle relaxants (such as Soma or Flexeril) ? Hypnotics (such as Ambien or Lunesta) ? Other prescription opioids KNOW YOUR OPTIONS Talk to your health care provider about ways to manage your pain that don?t involve prescription opioids. Some of these options may actually work better and have fewer risks and side effects. Options may include: ? Pain relievers such as acetaminophen, ibuprofen, and naproxen ? Some medication that are also used for depression or seizures ? Physical therapy and exercise ? Cognitive behavioral therapy, a psychological, goal-directed approach, in which patients learn how to modify physical, behavioral, and emotional triggers of pain and stress. IF YOU ARE PRESCRIBED OPIOIDS FOR PAIN: ? Never take opioids in greater amounts or more often than prescribed. ? Follow up with your primary health care provider. o Work together to create a plan on how to manage your pain. o Talk about ways to help manage your pain that don?t involve prescription opioids. o Talk about any and all concerns and side effects. ? Help prevent misuse and abuse o Never sell or share prescription opioids. o Never use another person?s prescription opioids. ? Store prescription opioids in a secure place and out of reach of others (this may include visitors, children, friends, and family). ? Safely dispose of unused prescription opioids: Find your community drug take-back program or your pharmacy mail-back program, or flush them down the toilet, following guidance from the Food and Drug Administration (www.fda.gov/Drugs/Res ourcesForYou). ? Visit www.cdc.gov/drugoverdo se to learn about the risks of opioids abuse and overdose. ? If you believe you may be (more content not included)... Normal [facility] HEMATOLOGYOrdered By: SYSTEM SYSTEM on 03-04-2024 Basophils/100 WBC (Bld) 0.1 % Normal 0.0 - 2.0 % Remisol Heme Basophils/Leukocytes Auto (Bld) [Pure # fraction] 0.0 E9/L Normal 0.0 - 0.2 E9/L Remisol Heme Eosinophils (Bld) [#/Vol] 0.1 E9/L Normal 0.0 - 0.5 E9/L Rem[facility] Heme Eosinophils/100 WBC (Bld) 0.8 % Normal 0.0 - 8.0 % Rem[facility] Heme Erythrocyte distribution width (RBC) [Ratio] 17.0 % High 10.9 - 14.2 % [facility] Heme Hematocrit (Bld) [Volume fraction] 38.6 % Normal 34.0 - 46.0 % Rem[facility] Heme Hemoglobin (Bld) [Mass/Vol] 12.8 g/dL Normal 12.0 - 16.0 gm/dL [facility] Lymphocytes (Bld) [#/Vol] 1.6 E9/L Normal 1.0 - 4.0 E9/L [facility] Lymphocytes/100 WBC (Bld) 16.0 % Normal 14.0 - 50.0 % [facility]e MCH (RBC) [Entitic mass] 26.9 pg Low 27.0 - 34.0 pg Remisol Heme MCHC (RBC) [Mass/Vol] 33.2 g/dL Normal 31.4 - 36.0 gm/dL [facility]e MCV (RBC) [Entitic vol] 81.1 fL Normal 80.0 - 100.0 fL [facility]e Monocytes (Bld) [#/Vol] 0.9 E9/L Normal 0.2 - 1.0 E9/L [facility] Monocytes/100 WBC (Bld) 8.9 % Normal 4.0 - 14.0 % [facility] Heme Neutrophils (Bld) [#/Vol] 7.2 E9/L Normal 2.0 - 7.5 E9/L [facility] Neutrophils/100 WBC (Bld) 74.2 % Normal 36.0 - 75.0 % [facility] Platelet 410.0 E9/L Normal 150.0 - 500.0 E9/L [facility] Platelet mean volume (Bld) [Entitic vol] 7.2 fL Normal 6.4 - 10.8 fL [facility]e RBC (Bld) [#/Vol] 4.8 E12/L Normal 4.3 - 5.9 E12/L [facility] WBC corrected for nucl RBC Auto (Bld) [#/Vol] 9.8 E9/L Normal 4.0 - 11.0 E9/L [facility] Hep Func Panelon 03-04-2024 Albumin [Mass/Vol] 4.0 g/dL Normal 3.3-5.0 [facility] Comment on above: Performed By: #### 2 [id number] #### [facility] [address] [place] [address] Albumin/Globulin (S) [Mass conc ratio] 1.0 Low 1.1-2.2 [facility] Comment on above: Performed By: #### 2 [id number] #### [facility] [address] [place] [address] ALP [Catalytic activity/Vol] 91 Int._Unit/L Normal 21-98 [facility] Comment on above: Performed By: #### 2 [id number] #### [facility] [address] [place] [address] ALT No additional P-5'-P [Catalytic activity/Vol] 15 Int._Unit/L Normal 6-46 [facility] Comment on above: Performed By: #### 2 [id number] #### [facility] [address] [place] [address] AST [Catalytic activity/Vol] 9 Int._Unit/L Normal 5-43 [facility] Comment on above: Performed By: #### 2 [id number] #### [facility] [address] [place] [address] Bilirubin [Mass/Vol] 0.7 mg/dL Normal 0.0-1.1 [facility] Comment on above: Performed By: #### 2 [id number] #### [facility] [address] [place] [address] Bilirubin.direct [Mass/Vol] 0.1 mg/dL Normal 0.0-0.4 [facility] Comment on above: Performed By: #### 2 [id number] #### [facility] [address] [place] [address] Bilirubin.indirect [Mass or moles/Vol] 0.6 mg/dL Normal 0.1-0.9 [facility] Comment on above: Performed By: #### 2 [id number] #### [facility] [address] [place] [address] Globulin (S) [Mass/Vol] 3.9 g/dL Normal 1.4-4.0 [facility] Comment on above: Performed By: #### 2 [id number] #### [facility] [address] [place] [address] Protein [Mass/Vol] 7.9 g/dL High 6.0-7.8 [facility] Comment on above: Performed By: #### 2 [id number] #### [facility] [address] [place] [address] Lipase Levelon 03-04-2024 Lipase [Catalytic activity/Vol] 36 U/L Normal 13-58 [facility] Comment on above: Performed By: #### 2 [id number] #### [facility] [address] [place] [address] Magnesiumon 03-04-2024 Magnesium [Mass/Vol] 1.6 mg/dL Normal 1.3-2.4 [facility] Comment on above: Performed By: #### 2 [id number] #### [facility] [address] [place] [address] SEROLOGYOrdered By: Nessa patino on 03-04-2024 Beta HCG ( test) Ql Negative (03/04/24 9:44 AM) Normal [facility] Man Sero UA with Cult Rflxon 03-04-20 24 Bacteria Auto Ql (U) Trace Normal Trace [facility] Comment on above: Performed By: #### 4 [id number] #### [facility] [address] [place] [address] Bilirubin Ql (U) Negative Normal Negative [facility] Comment on above: Performed By: #### 4 [id number] #### [facility] [address] [place] [address] Clarity (U) Turbid Abnormal Clear [facility] Comment on above: Performed By: #### 4 [id number] #### [facility] [address] [place] [address] Color (U) Light-Yellow Normal Yellow [facility] Comment on above: Result Comment: Micr oscopic readings are only performed on those samples that meet specific criteria set forth by [facility]. Performed By: #### 4 [id number] #### [facility] [address] [place] [address] Epithelial cells.squamous Auto (Urine sed) [#/Area] 3-4 Invalid Interpretation Code [facility] Comment on above: Performed By: #### 4 [id number] #### [facility] [address] [place] [address] Glucose Ql (U) Negative Normal Negative [facility] Comment on above: Performed By: #### 4 [id number] #### [facility] [address] [place] [address] Hemoglobin Auto test strip (U) [Mass/Vol] Negative Normal Negative [facility] Comment on above: Performed By: #### 4 [id number] #### [facility] [address] [place] [address] Ketones Auto test strip Ql (U) Negative Normal Negative [facility] Comment on above: Performed By: #### 4 [id number] #### [facility] [address] [place] [address] Leukocyte esterase Auto test strip Ql (U) 75 Cristela/uL Abnormal Negative [facility] Comment on above: Performed By: #### 4 [id number] #### [facility] [address] [place] [address] Mucus Auto Ql (U) Trace Normal Negative [facility] Comment on above: Performed By: #### 4 [id number] #### [facility] [address] [place] [address] Nitrite Auto test strip Ql (U) Negative Normal Negative [facility] Comment on above: Performed By: #### 4 [id number] #### [facility] [address] [place] [address] pH (U) 6.0 [pH] Invalid Interpretation Code 5.0-9.0 [facility] Comment on above: Performed By: #### 4 [id number] #### [facility] [address] [place] [address] Protein Ql (U) Negative Normal Negative [facility] Comment on above: Performed By: #### 4 [id number] #### [facility] [address] [place] [address] RBC Ql (U) 0-3 Normal 0-3 [facility] Comment on above: Performed By: #### 4 [id number] #### [facility] [address] [place] [address] Specific gravity (U) [Rel density] 1.006 Invalid Interpretation Code 1.005-1.030 [facility] Comment on above: Performed By: #### 4 [id number] #### [facility] [address] [place] [address] Urobilinogen (U) [Mass/Vol] Negative Normal Negative [facility] Comment on above: Performed By: #### 4 [id number] #### [facility] [address] [place] [address] WBC Auto (Urine sed) [#/Area] 6-15 Abnormal 0-5 [facility] Comment on above: Performed By: #### 4 [id number] #### [facility] [address] [place] [address] Type of Urine collection method Clean Catch Normal [facility] Comment on above: Performed By: #### 4 [id number] #### [facility] [address] [place] [address] URINALYSISOrdered By: SYSTEM SYSTEM on 03-04-2024 Bacteria Auto Ql (U) Trace /HPF Normal Trace/HPF [facility] UA Auto SS Bilirubin Ql (U) Negative Normal Negativemg/dL [facility] UA Auto SS Clarity (U) Turbid *ABN* (03/04/24 11:16 AM) Invalid Interpretation Code Clear [facility] UA Auto SS Color (U) Light-Yellow 1 (03/04/24 11:16 AM) Normal Yellow [facility] UA Auto SS Comment on above: Interpretive Data: M icroscopic readings are only performed on those samples that meet specific criteria set forth by [facility]. Epithelial cells.squamous Auto (Urine sed) [#/Area] 3-4 graded/HPF Invalid Interpretation Code [facility] UA Auto SS Glucose Ql (U) Negative Normal Negativemg/dL [facility] UA Auto SS Hemoglobin Auto test strip (U) [Mass/Vol] Negative Normal Negativemg/dL [facility] UA Aut o SS Ketones Auto test strip Ql (U) Negative Normal Negativemg/dL [facility] UA Auto SS Leukocyte esterase Auto test strip Ql (U) 75 Cristela/uL Cristela/uL Invalid Interpretation Code NegativeLeu/uL [facility] UA Auto SS Mucus Auto Ql (U) Trace graded/LPF Normal Negati vegraded /LPF [facility] UA Auto SS Nitrite Auto test strip Ql (U) Negative Normal Negativemg/dL [facility] UA Auto SS pH (U) 6.0 *NA* (03/04/24 11:16 AM) Invalid Interpretation Code 5.0 - 9.0 [facility] UA Auto SS Protein Ql (U) Negative Normal Negativemg/dL [facility] UA Auto SS RBC Ql (U) 0-3 graded/HPF Normal 0-3graded/HPF [facility] UA Auto SS Specific gravity (U) [Rel density] 1.006 *NA* (03/04/24 11:16 AM) Invalid Interpretation Code 1.005 - 1.030 [facility] UA Auto SS Urobilinogen (U) [Mass/Vol] Negative Normal Negativemg/dL [facility] UA Auto SS WBC Auto (Urine sed) [#/Area] 6-15 graded/HPF Invalid Interpretation Code 0-5graded/HPF [facility] UA Auto SS URINALYSISOrdered By: Carolyn Mcmahon on 03-04-2024 UA Spec Desc Clean Catch (03/04/24 11:16 AM) Normal [facility] UA Auto SS eGFRon 03-04-2024 eGFR 120 mL/min/1.73 m2 Normal >=59 [facility] Comment on above: Order Comment: Order added by Discern Expert. Performed By: #### 1 [id number] #### [facility] [address] [place] [address] Patient Educationon 03-01-20 Patient Education Immunology Crohn's Disease Crohn's disease is a long-lasting (chronic) disease that affects the gastrointestinal (GI) tract. Crohn's disease often causes irritation and inflammation in the small intestine and the beginning of the large intestine, but it can affect any part of the GI tract. Crohn's disease is part of a group of illnesses that are known as inflammatory bowel disease (IBD). Crohn's disease may start slowly and get worse over time. Symptoms may come and go. They may also go away for months or even years at a time (remission). What are the causes? The exact cause of this condition is not known. It may involve a response that causes your body's disease-fighting system (immune system) to attack healthy cells and tissues (autoimmune response). Bacteria, genes, and your environment may also play a role. What increases the risk? The following factors may make you more likely to develop this condition: ? Having a family member who has Crohn's disease, another IBD, or an autoimmune condition. ? Using products that contain nicotine or tobacco, such as cigarettes and e-cigarettes. ? Being in your 20s. ? Having Eastern ancestry. What are the signs or symptoms? The main symptoms of this condition involve your GI tract. These include: ? Diarrhea. ? Pain or cramping in the abdomen commonly felt in the lower right side of the abdomen. ? Frequent watery or bloody stools. ? Constipation. This may mean having: ? Fewer bowel movements in a week than normal. ? Difficulty having a bowel movement. ? Stools that are dry, hard, or larger than normal. ? Rectal bleeding or pain. ? An urgent need to have a bowel movement. ? The feeling that you are not finished having a bowel movement. Other symptoms may include: ? Unexplained weight loss. ? Tiredness (fatigue). ? Fever. ? Nausea or appetite loss. ? Joint pain. ? Vision changes. ? Red bumps or sores on the skin. ? Sores inside the mouth. How is this diagnosed? This condition may be diagnosed based on: ? Your symptoms and medical history. ? A physical exam. ? Tests, which may include: ? Blood tests. ? Stool sample tests. ? Imaging tests, such as X-rays and CT scans. ? Tests to examine the inside of your intestines using a long, flexible tube that has a light and a camera on the end (colonoscopy). ? A procedure to remove tissue samples from inside your bowel for testing (biopsy). You may need to work with a health care provider who specializes in diseases of the digestive tract (clinical radiologist). How is this treated? There is no cure for this condition, and it affects each person differently. Treatment can help you manage your symptoms. Your treatment may include: ? Medicines. These may be used by themselves or with other treatments (combination therapy). You may be given medicines that help to: ? Reduce inflammation. ? Control your immune system activity. ? Fight infections. ? Relieve cramps and prevent diarrhea. ? Control your pain. ? Surgery. You may need surgery if: ? Medicines and other treatments are not working anymore. ? You develop complications from severe Crohn's disease. ? A section of your intestine becomes so damaged that it needs to be removed. ? Lifestyle changes: ? Maintaining eating or drinking restrictions. ? Reducing or eliminating use of alcohol or nicotine. Follow these instructions at home: Medicines ? Take liaz-zdw-ewhaddt and prescription medicines only as told by your health care provider. ? If you were prescribed an antibiotic, take it as told by your health care provider. Do not stop taking the antibiotic even if you start to feel better. ? Avoid taking ibuprofen or other NSAID medicines if possible. These can make Crohn's disease worse. Eating and drinking ? Talk with your health care provider or a registered dietitian about what diet is best for you. ? Drink enough fluid to keep your urine pale yellow. ? If you are taking steroids to reduce inflammation, get plenty of calcium in your diet to help keep your bones healthy. You may also consider taking a calcium supplement with vitamin D. ? Keep a food diary to identify foods that make your symptoms better or worse, and avoid foods that cause symptoms. ? Follow instructions from your health care provider about eating or drinking restrictions if you have worsening symptoms (flare-up). ? If you drink alcohol: ? Limit how much you have to: ? 0?1 drink a day for women who are not . ? 0?2 drinks a day for men. ? Know how much alcohol is in a drink. In the [place] one drink equals one 12 oz bottle of beer (355 mL), one 5 oz glass of wine (148 mL), or one 1? oz glass of hard liquor (44 mL). General instructions ? Make sure you get all the vaccines that your health care provider recommends, especially pneumonia (pneumococcal) and flu (influenza) vaccines. ? Do not use any products that contain jonny (more content not included)... [facility] Ciro 02-26-2024 [facility] ROLA AGUILAR ([id number]) 1995 F Date Time Provider Department 02/26/24 LEE ANN HUMPHRIES During your visit today, we recorded the following information about you: Brittny Gan RN 02/26/2024 3:05 PM Signed I spoke with Rola yesterday in [place] to discuss process for Entyvio ordering Advised pens will be sent to [facility] for insurance approval Plan for loading dose of infusions on week 0, 2 and 6 will also be sent to insurance Once approval comes back for both infusion and pen we can schedule the infusions at [facility] Advised patient I will be in contact with her on the status SHAHBAZ Blum Christina, RN 03/05/2024 3:04 PM Signed PA on Entyvio infusions still pending Will check status on 03/09/24 SHAHBAZ Blum Christina, RN 03/09/2024 1:26 PM Signed [facility] scheduling team: Please schedule the following Entyvio infusion Infusions to be given on week 0, 2 and 6 ( week of 03/09, 03/23, 04/20) Please call patient with appt details Thank you Brittny Gan RN [facility] Scheduling team: Please schedule the following May with Doctor Diana Please call patient with appt details Thank you Brittny Gan RN I spoke with Rola advised plan has been approved Entyvio infusion week 0, 2 and 6 ( week of 03/09, 03/23, 04/20) Pen to start week 14 (06/15/24) I would have scheduling call her to arrange appts Message routed to [facility] so they are aware for delivery of pen Rola verbalized understanding No further questions Brittny Gan RN Auth/Cert 03/09/2024 11:49 AM Bandar Davalos - - Note: === PHARMACY TEAM ==== APPROVAL RECEIVED Benefit Type: Medical Insurance Name: [employer] Serv[employer] Location Tax ID: [id number](NPI:[id number]) Authorization received via fax Drug Name(s) AND HCPCS Code(s): J3380 (HCPCS) - INJECTION, VEDOLIZUMAB Approval Date Range: 02-27-2024 to 05-29-2024 Approval #: [id number] Dose AND Frequency: 300mg weeks 0,2,6 # Visits/Treatments (if applicable): 3 Temporary Site of Care Approval: N/A Ira Wilder 03/09/2024 1:59 PM Signed Infusion scheduled . 03/12. Requested to schedule subsequent visits when she is here. Scheduled follow up with Dr. Humphries on 06/02 at [facility] Thank you Ira Wilder PSS Allergies As of Date: 02/26/2024 Noted Allergy Reaction HYDROMORPHONE 05/26/2023 9 - Itching Date Reviewed: 02/25/2024 Reviewed by: Lora Sandhu PCNA - Fully Assessed Reason for Visit: Orders [681] Cmt: [employer] - Other [3602] Prescriptions as of 03/09/2024 - predniSONE (DELTASONE) 20 mg tablet Take 1 tablet by mouth once daily. - vedolizumab (ENTYVIO PEN) 108 mg/0.68 mL pen Inject 108 mg (1 pen) subcutaneously every other week. Problem List As Of Date 02/26/2024 Noted Resolved Crohn's disease (regional enteritis) (HCC) [K50*08/22/2018 02/04/2023 Abdominal pain [R10.9] 09/10/2018 01/21/2023 Hypomagnesemia [E83.42] 09/11/2018 09/12/2018 Hyponatremia [E87.1] 09/11/2018 09/12/2018 Perineal abscess [L02.215] 09/09/2018 Malnutrition of mild degree (HCC) [E44.1] 09/11/2018 Hypokalemia [E87.6] 09/12/2018 Crohn's colitis (HCC) [K50.10] 09/09/2018 02/04/2023 Obesity, Class II, BMI 35-39.9 [E66.9] 08/26/2020 History of creation of ostomy (HCC) [Z93.9] 01/22/2021 Crohn's disease of colon with complication (HCC*01/17/2023 History of endoscopy [Z98.890] 02/04/2023 07/04/2023 Imaging of gastrointestinal tract abnormal [R93*02/04/2023 13 weeks gestation of [Z3A.13] 04/30/2023 07/04/2023 Maternal Crohn's disease affecting in*04/30/2023 10/24/2023 Obesity, Class I, BMI 30-34.9 [E66.9] 05/01/2023 Anxiety and depression [F41.9, F32.A] 07/04/2023 Abdominal pain affecting [O26.899, R1*07/26/2023 10/27/2023 25 weeks gestation of [Z3A.25] 07/27/2023 08/01/2023 General counseling and advice for contraceptive*08/01/20 23 10/24/2023 Abdominal pain [R10.9] 08/19/2023 10/27/2023 Crohn's disease of small and large intestines w*08/20/2023 Crohn's disease of large intestine without comp*08/21/2023 Maternal Crohn's disease affecting in*08/23/2023 10/24/2023 29 weeks gestation of [Z3A.29] 08/23/2023 09/05/2023 Anemia during in third trimester [O99*09/05/2023 10/24/2023 Maternal iron deficiency anemia complicating pr*09/13/2023 Impaired intestinal absorption [K90.9] 09/13/2023 Non-reassuring status, delivered, current*10/24/2023 10/27/2023 care following delivery [Z3*10/24/2023 Maternal Crohn's disease (HCC) [O99.619, K50.90]10/24/2023 Ileostomy prolapse (HCC) [K94.19] 10/24/2023 Unwanted fertility [Z30.09] 10/24/2023 10/27/2023 Rubella non-immune status, delivered, current h*10/25/2023 10/27/2023 ABLA (acute blood loss anemia) [D62] 10/25/2023 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) (more content not included)... [facility] CNOVon 02-25-2024 CNOV Office Visit ([facility] ) ROLA AGUILAR ([id number]) 1995 F Date Time Provider Department 02/25/24 3:20 PM LEE ANN HUMPHRIES [facility] During your visit today, we recorded the following information about you: Temperature Pulse Blood pressure Weight 98.2 degrees 119/minute 120/89 83 kg Height 1.672 m Lee Ann Humphries DO 02/25/2024 4:51 PM Signed FOLLOW UP OFFICE VISIT REASON FOR VISIT: follow-up HPI: Rola Ward Lauren is a 28 year old female who presents for fistulizing Crohn's disease. She was recently seen in the hospital with an exacerbation. She is status post loop ileostomy with seton placement for perianal fistula. She underwent colonoscopy and ileoscopy in the hospital with results below. She was discharged on a prednisone taper with plan for Biologics as an outpatient. She previously developed antibodies to Humira. She was also previously on Stelara, but this was stopped after she lost insurance coverage. Most recently she was planned to start on Remicade along with Imuran, but during this process she became and never followed through with this. She had an uncomplicated and delivery with a healthy now 4-month-old boy. Her ileostomy has been complicated with prolapse with occasional obstruction. Since discharge she notes that she initially feels well with prednisone. However, symptoms have since worsened with taper below 20 mg. She notes an increased amount of rectal output along with bleeding as well as loose stools. Her ileostomy output has decreased. She also notes an increased amount of abdominal pain. This has not responded to Tylenol. She has tried to avoid going back to the emergency department as well as avoid hospital admission. She endorses an increase in nocturnal symptoms as well. She is open to starting more long-term therapy. Past Clinical Work-up: 01/20/2024 Hospital D/C Note: Assessment and Plan: 28-year-old woman with severe Crohn's disease presenting with recurring abdominal pain, cramping and diarrhea. Patient has been treated for flares twice already in the last 2 months with steroid tapers. Symptoms flare recur when she is tapered off the steroids. Status post colonoscopy and although would like to keep her the patient is demanding for discharge now. The patient wishes to go home now so we will prescribe a long steroid taper. Discussed with GI service. Patient go on a month-long steroid taper to follow-up with them. Colonoscopy results as above Discharge time is 40 minutes Crohn's disease Abdominal pain Diarrhea Anemia -Chronic, normocytic -Suspected due to chronic disease and iron deficiency -Patient received IV iron during her - Patient was taking oral supplement at home Hypokalemia -Due to GI losses - Corrected -Supplement and follow labs Anxiety and depression -Worsened with acute illness -Patient discontinued sertraline after her as she did not feel it was helping -She will follow-up as outpatient to discuss alternative treatment Ileostomy status -Due to Crohn's disease -Patient is in need of revision due to hernia Resolved Problems: * No resolved hospital problems. * 01/20/2024 Ileoscopy: Impression: - Crohn's disease with ileitis. Inflammation was found. This was mild in severity. Biopsied 01/20/2024 Colonoscopy: Impression: - Perianal fistula and anal canal stenosis found on perianal exam. - Stricture in the sigmoid colon. - Crohn's disease. Inflammation was found from the anus to the sigmoid colon. This was moderate in severity, unchanged compared to previous examinations. Biopsied FINAL DIAGNOSIS A. Small bowel, ileum, biopsy: - Chronic minimally inflamed enteritis; negative for pyloric gland metaplasia or dysplasia. B. Colon, rectosigmoid, biopsy: - Chronic mildly inflamed colitis; negative for dysplasia 01/18/2024 CT A/P: IMPRESSION: Diffuse colonic wall thickening and pericolonic stranding changes consistent with colitis. Partially imaged seton in the perianal region Latest Ref Rng 08/19/2023 01/18/2024 WBC 3.70 - 11.00 k/uL 5.21 6.62 RBC 3.90 - 5.20 m/uL 3.58 (L) 4.19 Hemoglobin 11.5 - 15.5 g/dL 10.3 (L) 11.3 (L) Hematocrit 36.0 - 46.0 % 31.3 (L) 35.4 (L) MCV 80.0 - 100.0 fL 87.4 84.5 MCH 26.0 - 34.0 pg 28.8 27.0 MCHC 30.5 - 36.0 g/dL 32.9 31.9 RDW-CV 11.5 - 15.0 % 13.9 13.9 Platelet Count 150 - 400 k/uL 231 353 MPV 9.0 - 12.7 fL 11.3 9.8 Latest Ref Rng 08/19/2023 01/18/2024 Protein, Total 6.3 - 8.0 g/dL 7.4 7.2 Albumin 3.9 - 4.9 g/dL 3.8 (L) 3.5 (L) Calcium 8.5 - 10.2 mg/dL 8.9 8.8 Bilirubin, Total 0.2 - 1.3 mg/dL 0.3 0.3 Alkaline Phosphatase 34 - 123 U/L 98 103 AST 13 - 35 U/L 17 11 (L) ALT 7 - 38 U/L 14 7 Glucose 74 - 99 mg/dL 74 116 (H) BUN 7 - 21 mg/dL 6 (L) 7 Creatinine 0.58 - 0.96 mg/dL 0.52 (L) 0.72 Sodium 136 - 144 mmol/L 135 (L) 135 (more content not included)... [facility] HISTORY PHYSICALon 4 HISTORY PHYSICAL HNO ID: [id number] Author: LEE ANN HUMPHRIES, DO Service: ? Author Type: Physician Type: H&P Filed: 02/25/2024 16:51 Note Text: FOLLOW UP OFFICE VISIT REASON FOR VISIT: follow-up HPI: Rola Aguilar is a 28 year old female who presents for fistulizing Crohn's disease. She was recently seen in the hospital with an exacerbation. She is status post loop ileostomy with seton placement for perianal fistula. She underwent colonoscopy and ileoscopy in the hospital with results below. She was discharged on a prednisone taper with plan for Biologics as an outpatient. She previously developed antibodies to Humira. She was also previously on Stelara, but this was stopped after she lost insurance coverage. Most recently she was planned to start on Remicade along with Imuran, but during this process she became and never followed through with this. She had an uncomplicated and delivery with a healthy now 4-month-old boy. Her ileostomy has been complicated with prolapse with occasional obstruction. Since discharge she notes that she initially feels well with prednisone. However, symptoms have since worsened with taper below 20 mg. She notes an increased amount of rectal output along with bleeding as well as loose stools. Her ileostomy output has decreased. She also notes an increased amount of abdominal pain. This has not responded to Tylenol. She has tried to avoid going back to the emergency department as well as avoid hospital admission. She endorses an increase in nocturnal symptoms as well. She is open to starting more long-term therapy. Past Clinical Work-up: 01/20/2024 Hospital D/C Note: Assessment and Plan: 28-year-old woman with severe Crohn's disease presenting with recurring abdominal pain, cramping and diarrhea. Patient has been treated for flares twice already in the last 2 months with steroid tapers. Symptoms flare recur when she is tapered off the steroids. Status post colonoscopy and although would like to keep her the patient is demanding for discharge now. The patient wishes to go home now so we will prescribe a long steroid taper. Discussed with GI service. Patient go on a month-long steroid taper to follow-up with them. Colonoscopy results as above Discharge time is 40 minutes Crohn's disease Abdominal pain Diarrhea Anemia -Chronic, normocytic -Suspected due to chronic disease and iron deficiency -Patient received IV iron during her - Patient was taking oral supplement at home Hypokalemia -Due to GI losses - Corrected -Supplement and follow labs Anxiety and depression -Worsened with acute illness -Patient discontinued sertraline after her as she did not feel it was helping -She will follow-up as outpatient to discuss alternative treatment Ileostomy status -Due to Crohn's disease -Patient is in need of revision due to hernia Resolved Problems: * No resolved hospital problems. * 01/20/2024 Ileoscopy: Impression: - Crohn's disease with ileitis. Inflammation was found. This was mild in severity. Biopsied 01/20/2024 Colonoscopy: Impression: - Perianal fistula and anal canal stenosis found on perianal exam. - Stricture in the sigmoid colon. - Crohn's disease. Inflammation was found from the anus to the sigmoid colon. This was moderate in severity, unchanged compared to previous examinations. Biopsied FINAL DIAGNOSIS A. Small bowel, ileum, biopsy: - Chronic minimally inflamed enteritis; negative for pyloric gland metaplasia or dysplasia. B. Colon, rectosigmoid, biopsy: - Chronic mildly inflamed colitis; negative for dysplasia 01/18/2024 CT A/P: IMPRESSION: Diffuse colonic wall thickening and pericolonic stranding changes consistent with colitis. Partially imaged seton in the perianal region Latest Ref Rng 08/19/2023 01/18/2024 WBC 3.70 - 11.00 k/uL 5.21 6.62 RBC 3.90 - 5.20 m/uL 3.58 (L) 4.19 Hemoglobin 11.5 - 15.5 g/dL 10.3 (L) 11.3 (L) Hematocrit 36.0 - 46.0 % 31.3 (L) 35.4 (L) MCV 80.0 - 100.0 fL 87.4 84.5 MCH 26.0 - 34.0 pg 28.8 27.0 MCHC 30.5 - 36.0 g/dL 32.9 31.9 RDW-CV 11.5 - 15.0 % 13.9 13.9 Platelet Count 150 - 400 k/uL 231 353 MPV 9.0 - 12.7 fL 11.3 9.8 Latest Ref Rng 08/19/2023 01/18/2024 Protein, Total 6.3 - 8.0 g/dL 7.4 7.2 Albumin 3.9 - 4.9 g/dL 3.8 (L) 3.5 (L) Calcium 8.5 - 10.2 mg/dL 8.9 8.8 Bilirubin, Total 0.2 - 1.3 mg/dL 0.3 0.3 Alkaline Phosphatase 34 - 123 U/L 98 103 AST 13 - 35 U/L 17 11 (L) ALT 7 - 38 U/L 14 7 Glucose 74 - 99 mg/dL 74 116 (H) BUN 7 - 21 mg/dL 6 (L) 7 Creatinine 0.58 - 0.96 mg/dL 0.52 (L) 0.72 Sodium 136 - 144 mmol/L 135 (L) 135 (L) Potassium 3.7 - 5.1 mmol/L 3.6 (L) 3.4 (L) Chloride 97 - 105 mmol/L 103 98 CO2 22 - 30 mmol/L 18 (L) 24 Anion Gap 9 - 18 mmol/L 14 13 eGFR >=60 mL/min/1.73m? 130 117 Latest Ref Rng 01/18/2024 TB Nil <=8.00 IU/mL 0.02 TB1 Ag minus Nil <0.35 IU/mL 0.00 TB2 Ag minus Nil <0.35 IU/mL 0.0 (more content not included)... [facility] ANES POSTPROC EVALon 024 ANES POSTPROC EVAL HNO ID: [id number] Author: SID ARTEAGA DO Service: Anesthesiology Author Type: Anesthesiologist Type: Anesthesia Postprocedure Evaluation Filed: 01/21/2024 09:35 Note Text: POST ANESTHESIA EVALUATION NOTE : 1995 Procedure Summary Date: 01/20/24 Room / Location: [facility] - ENDO Anesthesia Start: 1035 Anesthesia Stop: 111 Procedures: ILEOSCOPY COLONOSCOPY DIAGNOSTIC Diagnosis: (Inflammatory bowel disease) (Established Crohn's disease) Scheduled Providers: Lee Ann Humphries DO Responsible Provider: Sid Arteaga DO Anesthesia Type: MAC ASA Status: 3 Anesthesia Type: MAC Last Vitals Vitals Value Taken Time BP 118/81 01/20/24 1522 Temp 36.6 ?C (97.9 ?F) 01/20/24 1522 HR SpO2 67 01/20/24 1216 Resp 16 01/20/24 1522 SpO2 97 % 01/20/24 1522 Vitals shown include unfiled device data. Post Anesthesia Patient Status Patient Evaluation: PACU. PACU/ICU Patient Condition: stable. Neurological Status: aware and responsive. Pulmonary Status: breathing comfortably on room air Airway Control: returned to baseline unsupported. Cardiovascular Status: stable. Pain Management: clinically adequate - multimodal analgesia pain management approach Postoperative Hydration: acceptable. Intraoperative Events: no significant anesthesia events Post Operative Nausea/Vomiting Status: no significant post operative nausea or vomiting Recommendation: continue current plan of care. Anesthesia Observations No Documentation SIGNATURE: Sid Arteaga DO PATIENT NAME: oRla Aguilar DATE: January 21, 2024 TIME: 9:35 AM CSN: [id number] [facility] ANES PRE-OPon 01-20-2024 ANES PRE-OP HNO ID: [id number] Author: SID ARTEAGA DO Service: Anesthesiology Author Type: Anesthesiologist Type: Anesthesia Preprocedure Evaluation Filed: 01/20/2024 09:22 Note Text: ANESTHESIOLOGY DAY OF SURGERY NOTE : 1995 Procedure Information Date/Time: 01/20/24914 Scheduled providers: Lee Ann Humphries DO; Sid Arteaga DO; Jorje Loyd AA Procedures: ILEOSCOPY COLONOSCOPY DIAGNOSTIC Location: [facility] - ENDO Estimated body mass index is 29.61 kg/m? as calculated from the following: Height as of this encounter: 167.6 cm (5' 6 ). Weight as of this encounter: 83.2 kg (183 lb 6.8 oz). Most recent hematocrit and potassium results: Hematocrit 32.7 01/19/2024 Potassium 4.2 01/19/2024 Relevant Problems No relevant active problems I - PHYSICAL EVALUATION AIRWAY Patient intubated: No. Tracheostomy tube not present Mallampati: II. TM distance: >3 FB. Neck ROM: full ROM without neurological symptoms. Mouth opening: adequate. Short neck: no. Thick neck: no DENTAL Dental findings: teeth intact. II - ANESTHESIA PLAN ASA Score: 3 Anesthetic Plan: MAC The patient is not a current smoker. NPO Status: adequate Anesthetic plan additional comments: Urine HCG (-). . Beta Olena Monitoring Plan Monitoring plan: standard ASA. Post Procedure Analgesic Plan Postoperative analgesic plan: multimodal analgesia. Informed Consent Anesthetic risks, benefits, alternatives, personnel and consent discussed: yes. Patient / Responsible Republican agrees to proceed: yes Patient / Surrogate agrees to blood products: Yes Significant changes in the patient condition since the History and Physical, not otherwise documented in primary service progress note: no. Potential Anesthesia issues that may suggest increased risk of complications or contraindication to planned procedure: none. Vitals Value Taken Time BP 150/91 01/20/24 0854 Pulse 53 01/20/24 0854 Resp 18 04/29/24 0854 Temp 36.2 ?C (97.2 ?F) 01/20/24 0854 SpO2 99 % 01/20/24853 Facility-Administered Medications as of 01/20/2024 Medication Dose Route Frequency - busPIRone 5 mg tab(s) (BUSPAR) 5 mg ORAL BID - [COMPLETED] NaCl 0.9% 1,000 mL iv bolus 1,000 mL INTRAVENOUS ONCE - [COMPLETED] ondansetron (PF) 4 mg injection (ZOFRAN) 4 mg INTRAVENOUS ONCE - [COMPLETED] morphine 4 mg injection 4 mg INTRAVENOUS ONCE - [COMPLETED] methylPREDNISolone sod succinate(PF) 125 mg injection (SOLU-Medrol) 125 mg INTRAVENOUS ONCE - enoxaparin 40 mg injection (LOVENOX) 40 mg SUBCUTANEOUS q 24 HR - NaCl 0.9% iv flush bag 20 mL INTRAVENOUS PRN - [] lactated ringers iv infusion 100 mL/hr INTRAVENOUS CONTINUOUS - aluminum-magnesium hydroxide-simethicone 200-200-20 mg/5 mL 30 mL 30 mL ORAL DAILY PRN - acetaminophen 650 mg tab(s) (TYLENOL) 650 mg ORAL q 6 H PRN - trimethobenzamide 200 mg injection (TIGAN) 200 mg INTRAMUSCULAR q 6 H PRN - melatonin 6 mg tab(s) 6 mg ORAL AT BEDTIME PRN - [COMPLETED] morphine 1 mg injection 1 mg INTRAVENOUS ONCE - [COMPLETED] fentaNYL 50 mcg/mL 12.5 mcg injection (SUBLIMAZE) 12.5 mcg INTRAVENOUS ONCE - [COMPLETED] potassium chloride ER 20 mEq tab(s) (KLOR-CON) 20 mEq ORAL ONCE - lactated ringers iv infusion 100 mL/hr INTRAVENOUS CONTINUOUS - methylPREDNISolone sod succinate(PF) 20 mg injection (SOLU-Medrol) 20 mg INTRAVENOUS q 8 H - [COMPLETED] polyethylene glycol 3350 238 g oral powder 238 g ORAL ONCE - hydrOXYzine HCl 25-50 mg tab(s) (ATARAX) 25-50 mg ORAL q 6 H PRN - oxyCODONE IR 5 mg tab(s) (ROXICODONE) 5 mg ORAL q 4 H PRN Outpatient Medications as of 01/20/2024 Medication Sig - ferrous sulfate 325 mg (65 mg iron) tablet Take 1 tablet by mouth every other day. (Patient not taking: Reported on 01/18/2024) - SUMAtriptan (IMITREX) 25 mg tablet Take 1 tablet (25 mg) by mouth two times a day as needed for migraine headache (see administration instructions). at onset of headache. May repeat after 2 hours. (Patient not taking: Reported on 11/15/2023) - sertraline (ZOLOFT) 50 mg tablet Take 1 tablet by mouth once daily. (Patient not taking: Reported on 01/18/2024) - VIT 90-ISMH-YPMIV-DHA ORAL Take by mouth. (Patient not taking: Reported on 01/18/2024) I have interviewed and examined the patient. I have reviewed the medical record and/or the pre-anesthesia evaluation, pertinent labs, and test results. This contains updated information obtained within 48 hours of Surgery/Procedure. SIGNATURE: Sid Arteaga DO PATIENT NAME: Rola Aguilar DATE: January 20, 2024 TIME: 9:22 AM CSN: [id number] [facility] 01-20-2024 [facility] HNO ID: [id number] Author: JOSE CRONIN MD Service: ? Author Type: Physician Type: Discharge Summary Filed: 01/20/2024 17:13 Note Text: DISCHARGE SUMMARY PATIENT NAME: Rola Aguilar ADMISSION DATE: 01/17/2024 DISCHARGE DATE: 01/20/2024 Attending Physician: Jose Cronin* Reason for Hospitalization: Principal Problem: Crohn's colitis, without complications (HCC) (POA: Yes) Active Problems: Ileostomy in place (HCC) (POA: Yes) Generalized abdominal pain (POA: Unknown) Resolved Problems: * No resolved hospital problems. * Operations During Hospitalization: colonoscopy Procedures During Hospitalization: Hospital Course: Presents from home with worsening abdominal pain, cramping, increased output from ileostomy x 2 days. Hx/o Crohns and not currently on medication/treatment plan. Has been on Humira and Stellara previously. S/p C section 10/24/23. Has seen [facility] but not since 03/05/2023 and most recently seen by Dr. Crystal PARKER, 10/18/23 to discuss ileostomy closure. Was to return 3 months after to discuss further. Patient admits she has not attempted to re-establish with GI post delivery. She has not resumed her Zoloft post delivery. Afebrile, HDS K+ 3.4 HGB 11.3 with baseline 8.5-[address] Abd/Pelvis IMPRESSION: Diffuse colonic wall thickening and pericolonic stranding changes consistent with colitis. Partially imaged seton in the perianal region. In the ED, patient received Solumedrol 125 mg IV, morphine 4 mg IV, Zofran 4 mg IV. Stool and C diff studies ordered/pending. 28-year-old female admitted for abdominal pain cramping and CAT scan finding of Crohn's flare. She started on IV steroids and sent for colonoscopy. Results are below: Impression: - Crohn's disease with ileitis. Inflammation was found. This was mild in severity. Biopsied. Recommendation: - Return patient to hospital chew for ongoing care. - Advance diet as tolerated. - Continue present medications. - Perform a colonoscopy today. S/P Colonoscopy on 01/20/[address] 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 - Stricture in the sigmoid colon. - Crohn's disease. Inflammation was found from the anus to the sigmoid colon. This was moderate in severity, unchanged compared to previous examinations. Biopsied. Patient asked to be discharged and she was sent on long steroid taper and discussions with GI service. Patient will follow-up with Dr. Humphries in 1 to 2 weeks Labs and Procedures Pending at Discharge: Consulting Teams During Hospitalization: Gastroenterology: Patient Condition @ Discharge: Stable Discharge Disposition: Home with Self Care Discharge Physical Exam: VITAL SIGNS: BP 118/81 Pulse (!) 47 Temp 36.6 ?C (97.9 ?F) (Oral) Resp 16 Ht 167.6 cm (5' 6 ) Wt 83.2 kg (183 lb 6.8 oz) LMP 01/30/2023 (Exact Date) SpO2 97% BMI 29.61 kg/m? Physical Exam Performed: GENERAL: Alert, no distress, cooperative SKIN: Skin color, texture, turgor normal. No rashes or lesions. EYES: PERRLA, EOMI OROPHARYNX: Lips, mucosa, and tongue normal. Teeth and gums normal. Oropharynx normal. LUNGS: Lungs clear to auscultation, Good diaphragmatic excursion bilaterally CARDIAC: Normal S1 and S2; no rubs, murmurs, or gallops ABDOMEN: Abdomen soft, non-tender, BS normal, No masses or organomegaly EXTREMITIES: Extremities normal, no deformities, edema, clubbing or skin discoloration. Good capillary refill., No ulcers NEURO: Moves all 4 extremities, speech is clear and coherent, cranial nerves II-XII intact Labs: Creatinine 0.6, ferritin 315, hepatitis is negative, hemoglobin 10, colonoscopy and ileoscopy results are notable for stricture in the sigmoid colon with perianal fistula and anal canal stenosis with inflammation in the anus to the sigmoid colon Assessment and Plan: 28-year-old woman with severe Crohn's disease presenting with recurring abdominal pain, cramping and diarrhea. Patient has been treated for flares twice already in the last 2 months with steroid tapers. Symptoms flare recur when she is tapered off the steroids. Status post colonoscopy and although would like to keep her the patient is demanding for discharge now. The patient wishes to go home now so we will prescribe a long steroid taper. Discussed with GI service. Patient go on a month-long steroid taper to follow-up with them. Colonoscopy results as above Discharge time is 40 minutes Crohn's disease Abdominal pain Diarrhea Anemia -Chronic, normocytic -Suspected due to chronic disease and iron deficiency -Patient received IV iron during her - Patient was taking oral supplement at home Hypokalemia -Due to GI losses - Corrected -Supplement and follow labs Anxiety and depression -Worsened with acute illness -Patient discontinued sertraline after her as she d (more content not included)... Normal [facility] 01-20-2024 [facility] Telephone (FVSIMON) ROLA AGUILAR ([id number]) 1995 F Date Time Provider Department 01/20/24 ANGEL JAQUEZ During your visit today, we recorded the following information about you: Angel Jaquez PA-C 01/20/2024 1:51 PM Signed Hi! The patient needs to follow-up with any GI that is available for Crohn's colitis with diverting loop ileostomy. Please arrange with first available provider. Thanks! Angel Jaquez PA-C Gastroenterology and Hepatology Jenn Santiago, LORENA.GENERAL CLERK 01/20/2024 4:37 PM Signed Just to provide update-pt expressed desire to follow up with Dr. Humphries specifically.Thanks, Lee Ann Soliman DO 01/20/2024 5:51 PM Signed Please try to arrange follow-up in 4 weeks so we can discuss biologic therapy. Brittny Gan, SHAHBAZ 01/21/2024 2:09 PM Signed Scheduling team: Please offer patient the following appt 02/24 at 3:20 (slot is on hold) with Doctor Diana Please call patient with appt details Thank you Brittny Gan RN Nessa Douglass 01/21/2024 2:56 PM Signed LVM offering appt of February 24. Bill Fernandez 01/23/2024 11:17 AM Signed Pt is scheduled in the February 24 3:20pm slot held for her per message below. Thank you, Allergies As of Date: 01/20/2024 Noted Allergy Reaction HYDROMORPHONE 05/26/2023 9 - Itching Date Reviewed: 01/20/2024 Reviewed by: Blaire Birmingham, RN - Fully Assessed Reason for Visit: Appointment [186] Prescriptions as of 01/23/2024 - predniSONE (DELTASONE) 10 mg tablet Take 1 tablet by mouth once daily. Take 4 tabs po daily x 1 week then 3 tabs po daily x 1 week then 2 tabs po daily x 1 week then 1 tab po daily x 1 week then stop Problem List As Of Date 01/20/2024 Noted Resolved Crohn's disease (regional enteritis) (HCC) [K50*08/22/2018 02/04/2023 Abdominal pain [R10.9] 09/10/2018 01/21/2023 Hypomagnesemia [E83.42] 09/11/2018 09/12/2018 Hyponatremia [E87.1] 09/11/2018 09/12/2018 Perineal abscess [L02.215] 09/09/2018 Malnutrition of mild degree (HCC) [E44.1] 09/11/2018 Hypokalemia [E87.6] 09/12/2018 Crohn's colitis (HCC) [K50.10] 09/09/2018 02/04/2023 Obesity, Class II, BMI 35-39.9 [E66.9] 08/26/2020 History of creation of ostomy (HCC) [Z93.9] 01/22/2021 Crohn's disease of colon with complication (HCC*01/17/2023 History of endoscopy [Z98.890] 02/04/2023 07/04/2023 Imaging of gastrointestinal tract abnormal [R93*02/04/2023 13 weeks gestation of [Z3A.13] 04/30/2023 07/04/2023 Maternal Crohn's disease affecting in*04/30/2023 10/24/2023 Obesity, Class I, BMI 30-34.9 [E66.9] 05/01/2023 Anxiety and depression [F41.9, F32.A] 07/04/2023 Abdominal pain affecting [O26.899, R1*07/26/2023 10/27/2023 25 weeks gestation of [Z3A.25] 07/27/2023 08/01/2023 General counseling and advice for contraceptive*08/01/20 23 10/24/2023 Abdominal pain [R10.9] 08/19/2023 10/27/2023 Crohn's disease of small and large intestines w*08/20/2023 Crohn's disease of large intestine without comp*08/21/2023 Maternal Crohn's disease affecting in*08/23/2023 10/24/2023 29 weeks gestation of [Z3A.29] 08/23/2023 09/05/2023 Anemia during in third trimester [O99*09/05/2023 10/24/2023 Maternal iron deficiency anemia complicating pr*09/13/2023 Impaired intestinal absorption [K90.9] 09/13/2023 Non-reassuring status, delivered, current*10/24/2023 10/27/2023 care following delivery [Z3*10/24/2023 Maternal Crohn's disease (HCC) [O99.619, K50.90]10/24/2023 Ileostomy prolapse (HCC) [K94.19] 10/24/2023 Unwanted fertility [Z30.09] 10/24/2023 10/27/2023 Rubella non-immune status, delivered, current h*10/25/2023 10/27/2023 ABLA (acute blood loss anemia) [D62] 10/25/2023 Crohn's colitis, without complications (HCC) [K*01/18/[address] (HCC) [Z93.2] 01/18/2024 Generalized abdominal pain [R10.84] 01/20/2024 Encounter Status:Closed by BILL FERNANDEZ on 01/23/24 Normal [facility] Colonoscopyon 01-20-2024 Colonoscopy [facility] Patient Name: Rola Aguilar Procedure Date: 01/20/2024 10:02 AM Date of : 1995 Admit Type: Inpatient Age: 28 Room: [place] [address] Gender: Female Note Status: Finalized Attending MD: Lee Ann Humphries MD, [id number] Procedure: Colonoscopy Indications: Crohn's disease Providers: Lee Ann Humphries MD, Blaire Wallace RN, Dawna Torrez, SHAHBAZ (Assisting Nurse) Patient Profile: This is a 28 year old female. Refer to note in patient chart for documentation of history and physical. Last Colonoscopy: December 2022. Referring Physician: Dawn Cabello CNP (Referring MD) Medicines: Monitored Anesthesia Care Complications: No immediate complications. Procedure: Pre-Anesthesia Assessment: - Prior to the procedure, a History and Physical was performed, and patient medications and allergies were reviewed. The patient is competent. The risks and benefits of the procedure and the sedation options and risks were discussed with the patient. All questions were answered and informed consent was obtained. Patient identification and proposed procedure were verified by the physician and the nurse in the pre-procedure area in the procedure room. Mental Status Examination: alert and oriented. Airway Examination: normal oropharyngeal airway and neck mobility. Respiratory Examination: clear to auscultation. CV Examination: normal. Prophylactic Antibiotics: The patient does not require prophylactic antibiotics. Prior Anticoagulants: The patient has taken no anticoagulant or antiplatelet agents. ASA Grade Assessment: III - A patient with severe systemic disease. After reviewing the risks and benefits, the patient was deemed in satisfactory condition to undergo the procedure. The anesthesia plan was to use monitored anesthesia care (MAC). Immediately prior to administration of medications, the patient was re-assessed for adequacy to receive sedatives. The heart rate, respiratory rate, oxygen saturations, blood pressure, adequacy of pulmonary ventilation, and response to care were monitored throughout the procedure. The physical status of the patient was re-assessed after the procedure. After I obtained informed consent, the scope was passed under direct vision. Throughout the procedure, the patient's blood pressure, pulse, and oxygen saturations were monitored continuously. The PCF H190L [id number] was introduced through the anus with the intention of advancing to the surgical stoma. The scope was advanced to the sigmoid colon before the procedure was aborted. Medications were given. The colonoscopy was performed without difficulty. The patient tolerated the procedure well. The quality of the bowel preparation was adequate. The rectum was photographed. Moderate Sedation: MAC anesthesia was administered by the anesthesia team. Total Procedure Duration: 0 hours 4 minutes 51 seconds Findings: The perianal exam findings include perianal fistula and anal canal stenosis. A benign-appearing, intrinsic severe stenosis was found in the sigmoid colon and was non-traversed. Inflammation characterized by altered vascularity, congestion (edema), erythema, friability, granularity, mucus and deep ulcerations was found in a continuous and circumferential pattern from the anus to the sigmoid colon. No sites were spared. The inflammation was moderate in severity, and when compared to previous examinations, the findings are unchanged. Biopsies were taken with a cold forceps for histology. Verification of patient identification for the specimen was done by the nurse and regulatory technician using the patient's name, date and medical record number. The pathology specimen was placed into Bottle Number 1. Estimated blood loss was minimal. Impression: - Perianal fistula and anal canal stenosis found on perianal exam. - Stricture in the sigmoid colon. - Crohn's disease. Inflammation was found from the anus to the sigmoid colon. This was moderate in severity, unchanged compared to previous examinations. Biopsied. Recommendation: - Return patient to hospital chew for ongoing care. - Advance diet as tolerated. - Continue present medications. - Await pathology results. - Repeat colonoscopy for surveillance based on pathology results. - Patient has a contact number available for emergencies. The signs and symptoms of potential delayed complications were discussed with the patient. Return to normal activities tomorrow. Written discharge instructions were provided to the patient. Procedure Code(s): --- Professional --- 83533, 52, Colonoscopy, flexible; with biopsy, single or multiple Diagnosis Code(s): --- Professional --- K60.3, Anal fistula K62.4, Stenosis of anus and rectum K50.912, Crohn's disease, unspecified, with intestinal obstruction CPT copyright 2 (more content not included)... Normal [facility] Ileoscopyon 01-20-2024 Ileoscopy [facility] Patient Name: Rola Aguilar Procedure Date: 01/20/2024 10:07 AM Date of : 1995 Admit Type: Inpatient Age: 28 Room: [place] [address] Gender: Female Note Status: Finalized Attending MD: Lee Ann Humphries MD, [id number] Procedure: Ileoscopy Indications: Inflammatory bowel disease Providers: Lee Ann Humphries MD, Blaire Wallace RN, Dawna Torrez RN (Assisting Nurse) Patient Profile: This is a 28 year old female. Refer to note in patient chart for documentation of history and physical. Referring Physician: Dawn Cabello CNP (Referring MD) Medicines: Monitored Anesthesia Care Complications: No immediate complications. Procedure: Pre-Anesthesia Assessment: - Prior to the procedure, a History and Physical was performed, and patient medications and allergies were reviewed. The patient is competent. The risks and benefits of the procedure and the sedation options and risks were discussed with the patient. All questions were answered and informed consent was obtained. Patient identification and proposed procedure were verified by the physician and the nurse in the pre-procedure area in the procedure room. Mental Status Examination: alert and oriented. Airway Examination: normal oropharyngeal airway and neck mobility. Respiratory Examination: clear to auscultation. CV Examination: normal. Prophylactic Antibiotics: The patient does not require prophylactic antibiotics. Prior Anticoagulants: The patient has taken no anticoagulant or antiplatelet agents. ASA Grade Assessment: III - A patient with severe systemic disease. After reviewing the risks and benefits, the patient was deemed in satisfactory condition to undergo the procedure. The anesthesia plan was to use monitored anesthesia care (MAC). Immediately prior to administration of medications, the patient was re-assessed for adequacy to receive sedatives. The heart rate, respiratory rate, oxygen saturations, blood pressure, adequacy of pulmonary ventilation, and response to care were monitored throughout the procedure. The physical status of the patient was re-assessed after the procedure. After I obtained informed consent, the scope was passed under direct vision. Throughout the procedure, the patient's blood pressure, pulse, and oxygen saturations were monitored continuously. The PCF H190L [id number] was introduced through the ileostomy and advanced to the mid ileum. The ileoscopy was performed without difficulty. The patient tolerated the procedure well. The quality of the bowel preparation was adequate. Moderate Sedation: MAC anesthesia was administered by the anesthesia team. Total Procedure Duration: 0 hours 8 minutes 45 seconds Findings: Patient is status-post ileal resection with a loop ileostomy. Scattered inflammation characterized by congestion (edema), erosions and erythema was found in the distal ileum. The inflammation was mild in severity. Biopsies were taken with a cold forceps for histology. Verification of patient identification for the specimen was done by the nurse and regulatory technician using the patient's name, date and medical record number. The pathology specimen was placed into Bottle Number 1. Estimated blood loss was minimal. Impression: - Crohn's disease with ileitis. Inflammation was found. This was mild in severity. Biopsied. Recommendation: - Return patient to hospital chew for ongoing care. - Advance diet as tolerated. - Continue present medications. - Perform a colonoscopy today. Procedure Code(s): --- Professional --- 48618, Ileoscopy, through stoma; with biopsy, single or multiple Diagnosis Code(s): --- Professional --- K50.00, Crohn's disease of small intestine without complications K52.3, Indeterminate colitis CPT copyright 2020 [employer]. All rights reserved. The codes documented in this report are preliminary and upon livestock haulier review may be revised to meet current compliance requirements. Attending Participation: I personally performed the entire procedure. Scope In: 10:44:44 AM Scope Out: 10:53:29 AM MD Lee Ann Hilario MD 01/20/2024 10:55:39 AM This report has been signed electronically by Lee Ann Humphries MD Number of Addenda: 0 Note Initiated On: 01/20/2024 10:07 AM Estimated Blood Loss: Estimated blood loss was minimal. [facility] NURSING PROGon 01-20-2024 NURSING PROG HNO ID: [id number] Author: BLAIRE BIRMINGHAM RN Service: Nursing Author Type: Registered Nurse Type: Nursing Progress Note Filed: 01/20/2024 11:59 Note Text: PATIENT EDUCATION TOPIC: PROCEDURE / SURGERY: Post Procedure Teaching: Symptom Management PATIENT NAME: Rola Aguilar PATIENT LOCATION: [facility] POOL/[facility] ENDO POOL READINESS TO LEARN COGNITIVE ABILITY: Alert and oriented MOTIVATION TO LEARN: Interested FAMILY SUPPORT: Unable to assess - Family not present INSTRUCTION PROVIDED TO: Patient PATIENT LEARNS BEST BY: Undecided FACTORS AFFECTING LEARNING: None PHYSICAL LIMITATIONS AFFECTING LEARNING: Pain LEARNING RESPONSE DIAGNOSIS: ADULT: Post-Ileoscopy and Colonoscopy PATIENT/FAMILY RESPONSE: Verbalizes understanding of: POST-PROCEDURE INSTRUCTIONS-Correct actions to take to reduce post procedure complications METHOD OF INSTRUCTION: Individual instruction Verbal instruction FOLLOW-UP PLAN: Patient instructed to call with any further issues INSTRUCTIONAL AIDS USED: NA SUPPLEMENTAL MATERIAL PROVIDED TO PATIENT: None REFERRAL (RECOMMENDATION): None Electronically Signed By: Blaire Birmingham [facility] NURSING PROG HNO ID: [id number] Author: JIMENEZ MORRIS RN Service: Nursing Author Type: Registered Nurse Type: Nursing Progress Note Filed: 01/20/2024 08:58 Note Text: PATIENT EDUCATION TOPIC: PROCEDURE / SURGERY: Procedure/Surgery: colonoscopy PATIENT NAME: Rola Aguilar PATIENT LOCATION: [facility] READINESS TO LEARN COGNITIVE ABILITY: Alert and oriented MOTIVATION TO LEARN: Interested FAMILY SUPPORT: None - Unavailable/disinteres tayler INSTRUCTION PROVIDED TO: Patient PATIENT LEARNS BEST BY: Individual Instruction FACTORS AFFECTING LEARNING: None PHYSICAL LIMITATIONS AFFECTING LEARNING: None LEARNING RESPONSE DIAGNOSIS: ADULT: crohns PATIENT/FAMILY RESPONSE: Verbalizes understanding of: PRE-PROCEDURE INSTRUCTIONS-Correct action to take to follow pre-procedure instructions METHOD OF INSTRUCTION: Individual instruction FOLLOW-UP PLAN: Complete - No need for follow-up INSTRUCTIONAL AIDS USED: NA SUPPLEMENTAL MATERIAL PROVIDED TO PATIENT: None REFERRAL (RECOMMENDATION): None Electronically Signed By: Jimenez Morris [facility] SURGICAL PATHOLOGYon 024 CASE REPORT [facility] Comment on above: Order Comment: Speci men Type: BLOOD SPECIMEN Ordering Facility: [facility] Address: [address] [place] [address] Result Comment: Surg ica Pathology Report Case: [id number] Authorizing Provider: Lee Ann Humphries DO Collected: 01/20/2024 10:48 AM Ordering Location: [facility] Received: 01/20/2024 11:32 AM Endoscopy - ENDO Pathologist: Gifty Viveros MD Specimens: A) - Small Bowel, Ileum, Biopsy, eval for chrons B) - Colon, Rectosigmoid, Biopsy, eval for chrons Performed By: #### 5 8410-2 #### [facility] CLIA [id number] [address] [place] [address] FINAL DIAGNOSIS Normal [facility] Comment on above: Order Comment: Speci men Type: BLOOD SPECIMEN Ordering Facility: [facility] Address: [address] [place] [address] Result Comment: A. S mall bowel, ileum, biopsy: - Chronic minimally inflamed enteritis; negative for pyloric gland metaplasia or dysplasia. B. Colon, rectosigmoid, biopsy: - Chronic mildly inflamed colitis; negative for dysplasia. Performed By: #### 5 8410-2 #### [facility] CLIA [id number] [address] [place] [address] OF [facility] FINAL PERFORMING LAB Normal [facility] Comment on above: Order Comment: Speci men Type: BLOOD SPECIMEN Ordering Facility: [facility] Address: [address] [place] [address] Result Comment: Diag nostic interpretation performed at [facility], [address] [place] [address] CLIA# [id number] Environmental Monitoring Technician: Gifty Viveros M.D. Performed By: #### 5 8410-2 #### [facility] CLIA [id number] [address] [place] [address] OF [facility] GROSS DESCRIPTION Normal [facility] Comment on above: Order Comment: Speci men Type: BLOOD SPECIMEN Ordering Facility: [facility] Address: [address] [place] [address] Result Comment: A. S mall Bowel, Ileum, Biopsy Received in formalin are multiple pieces of smith, soft tissue aggregating to 0.8 x 0.2 x 0.1 cm. Totally submitted in one cassette. B. Colon, Rectosigmoid, Biopsy Received in formalin are multiple pieces of smith, soft tissue aggregating to 1.3 x 0.2 x 0.1 cm. Totally submitted in one cassette. Gross examination performed at [facility], [address] [place] [address] AMS January 20, 2024 4:13 PM Performed By: #### 5 8410-2 #### [facility] CLIA [id number] [address] [place] [address] [place] CBC panel Auto (Bld)on 01-18 Erythrocyte distribution width (RBC) [Ratio] 13.9 % Normal 11.5-15.0 [facility] Comment on above: Order Comment: Speci men Type: BLOOD SPECIMEN Ordering Facility: [facility] Address: [address] [place] [address] Performed By: #### 2 4323-8, 3039-3 #### [facility] CLIA [id number] [address] [place] [address] [place] Hematocrit (Bld) [Volume fraction] 32.7 % Low 36.0-46.0 [facility] Comment on above: Order Comment: Speci men Type: BLOOD SPECIMEN Ordering Facility: [facility] Address: [address] [place] [address] Performed By: #### 2 4323-8, 0-3 #### [facility] CLIA [id number] [address] [place] [address] [place] Hemoglobin (Bld) [Mass/Vol] 10.2 g/dL Low 11.5-15.5 [facility] Comment on above: Order Comment: Speci men Type: BLOOD SPECIMEN Ordering Facility: [facility] Address: [address] [place] [address] Performed By: #### 2 4323, 3040-3 #### [facility] CLIA [id number] [address] [place] [address] [place] MCH (RBC) [Entitic mass] 26.9 pg Normal 26.0-34.0 [facility] Comment on above: Order Comment: Speci men Type: BLOOD SPECIMEN Ordering Facility: [facility] Address: [address] [place] [address] Performed By: #### 2 4328, 3039-3 #### [facility] CLIA [id number] [address] [place] [address] [place] MCHC (RBC) [Mass/Vol] 31.2 g/dL Normal 30.5-36.0 [facility] Comment on above: Order Comment: Speci men Type: BLOOD SPECIMEN Ordering Facility: [facility] Address: [address] [place] [address] Performed By: #### 2 4328, 3039-3 #### [facility] CLIA [id number] [address] [place] [address] [place] MCV (RBC) [Entitic vol] 86.3 fL Normal 80.0-100.0 [facility] Comment on above: Order Comment: Speci men Type: BLOOD SPECIMEN Ordering Facility: [facility] Address: [address] [place] [address] Performed By: #### 2 43211-28, 3039-3 #### [facility] CLIA [id number] [address] [place] [address] [place] Nucleated RBC (Bld) [#/Vol] 10*3/uL Normal <0.01 [facility] Comment on above: Order Comment: Speci men Type: BLOOD SPECIMEN Ordering Facility: [facility] Address: [address] [place] [address] Performed By: #### 2 4323-8, 0-3 #### [facility] CLIA [id number] [address] [place] [address] [place] Platelet mean volume (Bld) [Entitic vol] 9.8 fL Normal 9.0-12.7 [facility] Comment on above: Order Comment: Speci men Type: BLOOD SPECIMEN Ordering Facility: [facility] Address: [address] [place] [address] Performed By: #### 2 4323-8, 3040-3 #### [facility] CLIA [id number] [address] [place] [address] [place] Platelets (Bld) [#/Vol] 324 10*3/uL Normal 150-400 [facility] Comment on above: Order Comment: Speci men Type: BLOOD SPECIMEN Ordering Facility: [facility] Address: [address] [place] [address] Performed By: #### 2 4323-8, 3040-3 #### [facility] CLIA [id number] [address] [place] [address] [place] RBC (Bld) [#/Vol] 3.79 10*6/uL Low 3.90-5.20 [facility] Comment on above: Order Comment: Speci men Type: BLOOD SPECIMEN Ordering Facility: [facility] Address: [address] [place] [address] Performed By: #### 2 4323-8, 3040-3 #### [facility] CLIA [id number] [address] [place] [address] [place] WBC (Bld) [#/Vol] 4.33 10*3/uL Normal 3.70-11.00 [facility] Comment on above: Order Comment: Speci men Type: BLOOD SPECIMEN Ordering Facility: [facility] Address: [address] [place] [address] Performed By: #### 2 4323-8, 3040-3 #### [facility] CLIA [id number] [address] [place], [place] [address] [facility] CONSULTon 01-19-2024 CONSULT HNO ID: [id number] Author: CHUNG GELLER MD Service: Psychiatry Author Type: Physician Type: Consults Filed: 01/19/2024 11:28 Note Text: CL NEW - PSYCHIATRY INITIAL CONSULTATION NOTE SERVICE DATE: January 19, 2024 SERVICE TIME: 11 am CONSULTING SERVICE : Psychiatry, requested by REASON FOR CONSULTATION: Anxiety. Visit Type: In person IDENTIFYING INFO: Ms. Aguilar is a 28 year old female from [place], [place]. HISTORY OF PRESENT ILLNESS : Ms Martinez is a 28 yo lady known Crohn's (off HUmira and Stellara, currently off meds), anemia, admitted with flare, 3 months , admitted with flare including abdominal pain, NV and diarrhea shortly after steroid taper (And recurrent ed visits with similar presenttaions). Patient also known MDD and PARMINDER, on zoloft, which she discontinued as she did not feel it was helping. When I stepped in to do the interview the patient reports that she does not want a psychiatrist in the hospital and would rather follow up on outpatient. COLLATERAL INFORMATION: FROM CHARTS: Psych consult at [facility] in 2018 preop: -Ms Aguilar denied seeing a psychiatrist in the past, previous inpatient psychiatric hospitalizations, and suicide attempts. She did say that she was prescribed Seroquel by her PCP for manic depression , but only took the medication for one day and was never formally diagnosed with a disorder -Ms. Aguilar is a 23 year old female presenting with increased abdominal pain, nausea and diarrhea. She has a PMH of Crohn's disease. Psychiatry was consulted for management of anxiety while hospitalized. Today, she was refusing to go to the OR prior to speaking with someone from Psychiatry or Psychology. She denied previous psych history. Ms Aguilar states that she is very anxious about having surgery and does not feel that all of her questions have been answered appropriately. She is also very upset that she may be admitted through [facility], as she was hopeful to be at home with her young daughter during that time. Please see recommendations below. PSYCHIATRIC HISTORY: Diagnoses: MDD vs PARMINDER Current Psychiatrist: ? Current Therapist: IBD psychologist Dr garcia? Last Hospitalization: None History of Suicide Attempts: None Previous Psychiatric Medication Trials: Seroquel, zoloft Substance Abuse History: Alcohol: No history of use or dependence Marijuana: No history of use or dependence Cocaine: No history of use or dependence Opioids: No history of use or dependence OTHER SUBSTANCE USE: No history of use or dependence SOCIAL HISTORY: Childhood: From [place], [place] Relationships: Children: daughter and Education: HS Drop-out Employment: [employer] Current supports: parent(s) and friends Legal history: Denied Roman [employer] affiliation(s): unknown Abuse history: She denied a history of emotional, physical or sexual abuse, or any history of trauma. FAMILY HISTORY Problem Relation Age of Onset Hodgkin Lymphoma Mother NON hodgkin Colon Cancer Other PAST MEDICAL HISTORY Diagnosis Date Crohn's disease (HCC) History of transfusion 2017 anemia noted prior to surgery Migraine with aura Perianal abscess Seasonal allergies PAST SURGICAL HISTORY Procedure Laterality Date COLONOSCOPY GEN ANES 10/20/2020 EXCISION PILONIDAL CYST/SINUS SIMPLE 06/2016 PAST SURGICAL HISTORY OF 09/10/2018 Laparoscopic creation of diverting loop ileostomy, laparoscopic TAP block, examination under anesthesia with flexible sigmoidoscopy with biopsies, incision and drainage of complex perianal and supralevator abscesses with drain and seton placement. PAST SURGICAL HISTORY OF 08/26/2018 Exam under anesthesia, flexible sigmoidoscopy, incision and drainage of deep postanal space abscess, seton and drain placement. PAST SURGICAL HISTORY OF iliostomy Current Facility-Administered Medications Medication Dose Route Frequency enoxaparin 40 mg injection (LOVENOX) 40 mg SUBCUTANEOUS q 24 HR NaCl 0.9% iv flush bag 20 mL INTRAVENOUS PRN aluminum-magnesium hydroxide-simethicone 200-200-20 mg/5 mL 30 mL 30 mL ORAL DAILY PRN acetaminophen 650 mg tab(s) (TYLENOL) 650 mg ORAL q 6 H PRN trimethobenzamide 200 mg injection (TIGAN) 200 mg INTRAMUSCULAR q 6 H PRN melatonin 6 mg tab(s) 6 mg ORAL AT BEDTIME PRN lactated ringers iv infusion 100 mL/hr INTRAVENOUS CONTINUOUS methylPREDNISolone sod succinate(PF) 20 mg injection (SOLU-Medrol) 20 mg INTRAVENOUS q 8 H polyethylene glycol 3350 238 g oral powder 238 g ORAL ONCE hydrOXYzine HCl 25-50 mg tab(s) (ATARAX) 25-50 mg ORAL q 6 H PRN oxyCODONE IR 5 mg tab(s) (ROXICODONE) 5 mg ORAL q 4 H PRN ALLERGIES Allergen Reactions Hydromorphone Itching VITAL SIGNS: 01/18/24 1932 01/18/24 2322 01/19/24 0534 01/19/24 0751 BP: 126/77 118/70 103/59 Pulse: 85 83 (!) 59 Resp: 16 16 16 Temp: 36.5 ?C (97.7 ?F) 36.4 ?C (97.5 ?F) 36.4 ?C (97.5 ?F) TempSrc: Oral Oral Oral Sp (more content not included)... Normal [facility] Comprehensive metabolic 2000 panelon 01-19-2024 Albumin [Mass/Vol] 3.4 g/dL Low 3.9-4.9 [facility] Comment on above: Order Comment: Speci men Type: STOOL SPECIMEN Ordering Facility: [facility] Address: [address] [place] [address] Performed By: #### 5 4067-4, 21969-8 #### [facility] CLIA [id number] [address] [place] [address] [place] ALP [Catalytic activity/Vol] 84 U/L Normal 34-123 [facility] Comment on above: Order Comment: Speci men Type: STOOL SPECIMEN Ordering Facility: [facility] Address: [address] [place] [address] Performed By: #### 5 4067-4, 41784-8 #### [facility] CLIA [id number] [address] [place] [address] [place] ALT [Catalytic activity/Vol] 6 U/L Low 7-38 [facility] Comment on above: Order Comment: Speci men Type: STOOL SPECIMEN Ordering Facility: [facility] Address: [address] [place] [address] Performed By: #### 5 4067-4, 01796-9 #### [facility] CLIA [id number] [address] [place] [address] [place] Anion gap [Moles/Vol] 13 mmol/L Normal 9-18 [facility] Comment on above: Order Comment: Speci men Type: STOOL SPECIMEN Ordering Facility: [facility] Address: [address] [place] [address] Performed By: #### 5 4067-4, 46349-4 #### [facility] CLIA [id number] [address] [place] [address] [place] AST [Catalytic activity/Vol] 8 U/L Low 13-35 [facility] Comment on above: Order Comment: Speci men Type: STOOL SPECIMEN Ordering Facility: [facility] Address: [address] [place] [address] Performed By: #### 5 4067-4, 13978-8 #### [facility] CLIA [id number] [address] [place] [address] [place] Bilirubin [Mass/Vol] 0.2 mg/dL Normal 0.2-1.3 [facility] Comment on above: Order Comment: Speci men Type: STOOL SPECIMEN Ordering Facility: [facility] Address: [address] [place] [address] Performed By: #### 5 4067-4, 31869-0 #### [facility] CLIA [id number] [address] [place] [address] [place] Calcium [Mass/Vol] 9.0 mg/dL Normal 8.5-10.2 [facility] Comment on above: Order Comment: Speci men Type: STOOL SPECIMEN Ordering Facility: [facility] Address: [address] [place] [address] Performed By: #### 5 4067-4, 18564-4 #### [facility] CLIA [id number] [address] [place] [address] [place] Chloride [Moles/Vol] 104 mmol/L Normal 97-105 [facility] Comment on above: Order Comment: Speci men Type: STOOL SPECIMEN Ordering Facility: [facility] Address: [address] [place] [address] Performed By: #### 5 4067-4, 93890-6 #### [facility] CLIA [id number] [address] [place] [address] [place] CO2 [Moles/Vol] 21 mmol/L Low 22-30 [facility] Comment on above: Order Comment: Speci men Type: STOOL SPECIMEN Ordering Facility: [facility] Address: [address] [place] [address] Performed By: #### 5 4067-4, 14050-3 #### [facility] CLIA [id number] [address] [place] [address] [place] Creatinine [Mass/Vol] 0.61 mg/dL Normal 0.58-0.96 [facility] Comment on above: Order Comment: Speci men Type: STOOL SPECIMEN Ordering Facility: [facility] Address: [address] [place] [address] Performed By: #### 5 4067-4, 24507-4 #### [facility] CLIA [id number] [address] [place] [address] [place] Creatinine and Glomerular filtration rate.predicted panel (S/P/Bld) 125 mL/min/1.73m??? Normal >=60 [facility] Comment on above: Order Comment: Roya [place] rio Type: STOOL SPECIMEN Ordering Facility: [facility] Address: [address] [place] [address] Result Comment: Alysha mated Glomerular Filtration Rate (eGFR) is calculated using the 2020 CKD-EPI creatinine equation. This equation utilizes serum creatinine, sex, and age as parameters. The creatinine assay has traceable calibration to isotope dilution-mass spectrometry. Refer to KDIGO guidelines for clinical interpretation. In patients with unstable renal function, e.g. those with acute kidney injury, the eGFR may not accurately reflect actual GFR. Performed By: #### 5 4067-4, 05589-3 #### [facility] CLIA [id number] [address] [place] [address] [place] Glucose [Mass/Vol] 124 mg/dL High 74-99 [facility] Comment on above: Order Comment: Speci men Type: STOOL SPECIMEN Ordering Facility: [facility] Address: [address] [place] [address] Result Comment: The [place] [employer] (ADA) provides guidance for cutoff values for fasting glucose and random glucose. The ADA defines fasting as no caloric intake for at least 8 hours. Fasting plasma glucose results between 100 to 125 mg/dL indicate increased risk for diabetes (prediabetes). Fasting plasma glucose results greater than or equal to 126 mg/dL meet the criteria for diagnosis of diabetes. In the absence of unequivocal hyperglycemia, results should be confirmed by repeat testing. In a patient with classic symptoms of hyperglycemia or hyperglycemic crisis, random plasma glucose results greater than or equal to 200 mg/dL meet the criteria for diagnosis of diabetes. Reference: Standards of Medical Care in Diabetes 2016, [place] [employer] Association. Diabetes Care. 2016.39(Suppl 1). Performed By: #### 5 4067-4, 25896-9 #### [facility] CLIA [id number] [address] [place] [address] [place] Potassium [Moles/Vol] 4.2 mmol/L Normal 3.7-5.1 [facility] Comment on above: Order Comment: Speci men Type: STOOL SPECIMEN Ordering Facility: [facility] Address: [address] [place] [address] Performed By: #### 5 4067-4, 61651-4 #### [facility] CLIA [id number] [address] [place] [address] [place] Protein [Mass/Vol] 6.7 g/dL Normal 6.3-8.0 [facility] Comment on above: Order Comment: Speci men Type: STOOL SPECIMEN Ordering Facility: [facility] Address: [address] [place] [address] Performed By: #### 5 4067-4, 00171-0 #### [facility] CLIA [id number] [address] [place] [address] [place] Sodium [Moles/Vol] 138 mmol/L Normal 136-144 [facility] Comment on above: Order Comment: Speci men Type: STOOL SPECIMEN Ordering Facility: [facility] Address: [address] [place] [address] Performed By: #### 5 4067-4, 36510-6 #### [facility] CLIA [id number] [address] [place] [address] [place] Urea nitrogen [Mass/Vol] 6 mg/dL Low 7-21 [facility] Comment on above: Order Comment: Speci men Type: STOOL SPECIMEN Ordering Facility: [facility] Address: [address] [place] [address] Performed By: #### 5 4067-4, 60759-3 #### [facility] CLIA [id number] [address] [place], [place] [address] [address] [place] Magnesium SerPl-mCncon 01-18 Magnesium [Mass/Vol] 2.0 mg/dL Normal 1.7-2.3 [facility] Comment on above: Order Comment: Speci men Type: STOOL SPECIMEN Ordering Facility: [facility] Address: [address] [place] [address] Performed By: #### 5 4067-4, 64393-2 #### [facility] CLIA [id number] [address] [place] [address] [place] NURSING PROGon 01-19-2024 NURSING PROG HNO ID: [id number] Author: YFN JERNIGAN RN Service: Nursing Author Type: Registered Nurse Type: Nursing Progress Note Filed: 01/19/2024 14:26 Note Text: Pt given mirilax and educated about bowel prep for colonoscopy procedure that is scheduled for Saturday. Pt states that will make me sick . Pt encouraged to drink as much as she can tolerate before her procedure to ensure the most accurate results. Normal [facility] ALLIED HEALTHon 01-18-2024 ALLIED HEALTH HNO ID: [id number] Author: MISAEL GODDARD RT(Georges) Service: Radiology Author Type: Technologist Type: Allied Health Filed: 01/18/2024 18:50 Note Text: Radiology Service Progress Note PATIENT NAME: Rola Aguilar DATE OF SERVICE: January 18, 2024 TIME: 6:50 PM PATIENT IDENTITY VERIFICATION COMPLETED USING TWO (2) IDENTIFIERS: Name and Date of confirmed by patient verbally and Name and Date of confirmed by identification band. FALL SCREENING: Has the patient had 2 falls in the last year or 1 fall with injury or currently using an Ambulatory Assistive Device (Walker, Cane, Wheelchair, Crutches, etc.)? Inpatient: Screened on floor PATIENT GENDER DATA: Female. status: : No status: NO. PATIENT RELEVANT IMPLANT DATA REVIEWED: Not Applicable PATIENT PRESENTS WITH AN IMPLANTABLE OR ATTACHED MANAGER SHELL: No RADIOLOGY DEPARTMENT: General X-ray: Exam(s) Completed: Chest X-Ray PERIPHERAL IV DATA: Not applicable SIGNED BY: RT Oswaldo(Georges) January 18, 2024 6:50 PM [facility] HEALTH HNO ID: [id number] Author: SOLIS GUERRA RT(R) Service: ? Author Type: Technologist Type: Allied Health Filed: 01/18/2024 00:57 Note Text: Radiology Service Progress Note DATE OF SERVICE: January 18, 2024 TIME: 12:57 AM PATIENT IDENTITY VERIFICATION COMPLETED USING TWO (2) STANDARD IDENTIFIERS: Name and Date of confirmed by patient verbally and Name and Date of confirmed by identification band. FALL SCREENING: Has the patient had 2 falls in the last year or 1 fall with injury or currently using an Ambulatory Assistive Device (Walker, Cane, Wheelchair, Crutches, etc.)? Emergency Room Patient: Screened in ED PATIENT GENDER DATA: Female. status: : No status: NO. PATIENT RELEVANT IMPLANT DATA REVIEWED: Not Applicable PATIENT PRESENTS WITH AN IMPLANTABLE OR ATTACHED MANAGER SHELL: No ALLERGIES: Reviewed and unchanged CONTRAST ALLERGY: NO. EXAM: CT -CONTRAST INDUCED NEPHROPATHY RISK FACTORS: Not applicable CREATININE: Creatinine Date Value Ref Range Status 01/18/2024 0.72 0.58 - 0.96 mg/dL Final 08/19/2023 0.52 (L) 0.58 - 0.96 mg/dL Final 07/26/2023 0.57 (L) 0.58 - 0.96 mg/dL Final Estimated Glomerular Filtration Rate Date Value Ref Range Status 01/18/2024 117 >=60 mL/min/1.73m? Final Comment: Estimated Glomerular Filtration Rate (eGFR) is calculated using the 2020 CKD-EPI creatinine equation. This equation utilizes serum creatinine, sex, and age as parameters. The creatinine assay has traceable calibration to isotope dilution-mass spectrometry. Refer to KDIGO guidelines for clinical interpretation. In patients with unstable renal function, e.g. those with acute kidney injury, the eGFR may not accurately reflect actual GFR. eGFR- Date Value Ref Range Status 01/24/2021 >60 Final P.O.C.T. RESULTS: N/A January 18, 2024 TREATMENT: N/A PERIPHERAL IV DATA: Inpatient - refer to LDA documentation RADIOLOGY DEPARTMENT: CT; Exam(s) Completed: Abdomen/Pelvis SIGNATURE: Solis Guerra RT(R) PATIENT NAME: Rola Aguilar DATE: January 18, 2024 TIME: 12:57 AM [facility] BLOOD TB SCREENon 01-18-2024 M. tuberculosis tuberculin stim IFN-g Ql (Bld) Negative [facility] Comment on above: Order Comment: Speci men Type: BLOOD SPECIMEN Ordering Facility: [facility] Address: [address] [place] [address] Performed By: #### 2 4323-8, 0-3 #### [facility] CLIA [id number] [address] [place] [address] [place] MITOGEN MINUS NIL 5.93 IU/mL Normal >=0.50 [facility] Comment on above: Order Comment: Roya del rio Type: BLOOD SPECIMEN Ordering Facility: [facility] Address: [address] [place] [address] Performed By: #### 2 4323-8, 0-3 #### [facility] CLIA [id number] [address] [place] [address] [place] TB GAMMA INTERPRETATION Infection with M. tuberculosis complex is unlikely. If latent tuberculosis infection is highly suspected, a negative result does not rule out the infection. Specimens from immunocompromised patients and those <5 years of age may show false negative results. In case of a contact investigation, please repeat 8-12 weeks after a known exposure. [facility] Comment on above: Order Comment: Roya del rio Type: BLOOD SPECIMEN Ordering Facility: [facility] Address: [address] [place] [address] Performed By: #### 2 4323-8, 0-3 #### [facility] CLIA [id number] [address] [place] [address] TB NIL 0.02 IU/mL Normal <=8.00 [facility] Comment on above: Order Comment: Roya men Type: BLOOD SPECIMEN Ordering Facility: [facility] Address: [address] [place] [address] Performed By: #### 2 4323-8, 3040-3 #### [facility] CLIA [id number] [address] [place] [address] [place] TB1 AG MINUS NIL 0.00 IU/mL Normal <0.35 [facility] Comment on above: Order Comment: Speci men Type: BLOOD SPECIMEN Ordering Facility: [facility] Address: [address] [place] [address] Performed By: #### 2 4323-8, 0-3 #### [facility] CLIA [id number] [address] [place] [address] OF [place] TB2 AG MINUS NIL 0.00 IU/mL Normal <0.35 [facility] Comment on above: Order Comment: Speci men Type: BLOOD SPECIMEN Ordering Facility: [facility] Address: [address] [place] [address] Performed By: #### 2 4323-8, 0-3 #### [facility] CLIA [id number] [address] [place] [address] [place] C diff Tox gens Stl Ql CORONA+p robeon 01-18-2024 C. difficile toxin genes CORONA+probe Ql (Stl) Negative Normal Negative for C. difficile toxin by PCR [facility] Comment on above: Order Comment: Speci men Type: STOOL SPECIMEN Ordering Facility: [facility] Address: [address] [place] [address] Performed By: #### 5 4067-4, 58578-6 #### [facility] CLIA [id number] [address] [place] [address] [id number] [place] [address] [place] CBC W Auto Differential pane l (Bld)on 01-18-2024 Basophils (Bld) [#/Vol] 0.03 10*3/uL Normal <0.11 [facility] Comment on above: Order Comment: Speci men Type: BLOOD SPECIMEN Ordering Facility: [facility] Address: [address] [place] [address] Performed By: #### 2 4323-8, 0-3 #### [facility] CLIA [id number] [address] [place] [address] [place] Basophils/100 WBC (Bld) 0.5 % Normal [facility] Comment on above: Order Comment: Speci men Type: BLOOD SPECIMEN Ordering Facility: [facility] Address: [address] [place] [address] Performed By: #### 2 4323-8, 0-3 #### [facility] CLIA [id number] [address] [place] [address] [place] Differential cell count method Nom (Bld) Auto Normal [facility] Comment on above: Order Comment: Speci men Type: BLOOD SPECIMEN Ordering Facility: [facility] Address: [address] [place] [address] Performed By: #### 2 4328, 0-3 #### [facility] CLIA [id number] [address] [place] [address] [place] Eosinophils (Bld) [#/Vol] 0.15 10*3/uL Normal <0.46 [facility] Comment on above: Order Comment: Speci men Type: BLOOD SPECIMEN Ordering Facility: [facility] Address: [address] [place] [address] Performed By: #### 2 432-8, 0-3 #### [facility] CLIA [id number] [address] [place] [address] [place] Eosinophils/100 WBC (Bld) 2.3 % Normal [facility] Comment on above: Order Comment: Speci men Type: BLOOD SPECIMEN Ordering Facility: [facility] Address: [address] [place] [address] Performed By: #### 2 4323-8, 0-3 #### [facility] CLIA [id number] [address] [place] [address] [place] Erythrocyte distribution width (RBC) [Ratio] 13.9 % Normal 11.5-15.0 [facility] Comment on above: Order Comment: Speci men Type: BLOOD SPECIMEN Ordering Facility: [facility] Address: [address] [place] [address] Performed By: #### 2 4328, 0-3 #### [facility] CLIA [id number] [address] [place] [address] [place] Hematocrit (Bld) [Volume fraction] 35.4 % Low 36.0-46.0 [facility] Comment on above: Order Comment: Speci men Type: BLOOD SPECIMEN Ordering Facility: [facility] Address: [address] [place] [address] Performed By: #### 2 4323-04, 3039-3 #### [facility] CLIA [id number] [address] [place] [address] [place] Hemoglobin (Bld) [Mass/Vol] 11.3 g/dL Low 11.5-15.5 [facility] Comment on above: Order Comment: Speci men Type: BLOOD SPECIMEN Ordering Facility: [facility] Address: [address] [place] [address] Performed By: #### 2 4323-04, 3039-3 #### [facility] CLIA [id number] [address] [place] [address] [place] Immature granulocytes (Bld) [#/Vol] 10*3/uL Normal <0.10 [facility] Comment on above: Order Comment: Speci men Type: BLOOD SPECIMEN Ordering Facility: [facility] Address: [address] [place] [address] Performed By: #### 2 4323-04, 3039-3 #### [facility] CLIA [id number] [address] [place] [address] [place] Immature granulocytes/100 WBC (Bld) 0.2 % Normal [facility] Comment on above: Order Comment: Speci men Type: BLOOD SPECIMEN Ordering Facility: [facility] Address: [address] [place] [address] Performed By: #### 2 4323-8, 0-3 #### [facility] CLIA [id number] [address] [place] [address] [place] Lymphocytes (Bld) [#/Vol] 1.07 10*3/uL Normal 1.00-4.00 [facility] Comment on above: Order Comment: Speci men Type: BLOOD SPECIMEN [facility] [facility] Address: [address] [place] [address] Performed By: #### 2 4323-8, 0-3 #### [facility] CLIA [id number] [address] [place] [address] [place] Lymphocytes/100 WBC (Bld) 16.2 % Normal [facility] Comment on above: Order Comment: Speci men Type: BLOOD SPECIMEN Ordering Facility: [facility] Address: [address] [place] [address] Performed By: #### 2 4323-04, 3039-3 #### [facility] CLIA [id number] [address] [place] [address] [place] MCH (RBC) [Entitic mass] 27.0 pg Normal 26.0-34.0 [facility] Comment on above: Order Comment: Speci men Type: BLOOD SPECIMEN Ordering Facility: [facility] Address: [address] [place] [address] Performed By: #### 2 4328, 3039-3 #### [facility] CLIA [id number] [address] [place] [address] [place] MCHC (RBC) [Mass/Vol] 31.9 g/dL Normal 30.5-36.0 [facility] Comment on above: Order Comment: Speci men Type: BLOOD SPECIMEN Ordering Facility: [facility] Address: [address] [place] [address] Performed By: #### 2 4328, 3039-3 #### [facility] CLIA [id number] [address] [place] [address] [place] MCV (RBC) [Entitic vol] 84.5 fL Normal 80.0-100.0 [facility] Comment on above: Order Comment: Speci men Type: BLOOD SPECIMEN Ordering Facility: [facility] Address: [address] [place] [address] Performed By: #### 2 43211-28, 0-3 #### [facility] CLIA [id number] [address] [place] [address] [place] Monocytes (Bld) [#/Vol] 0.94 10*3/uL High <0.87 [facility] Comment on above: Order Comment: Speci men Type: BLOOD SPECIMEN Ordering Facility: [facility] Address: [address] [place] [address] Performed By: #### 2 4323-8, 3040-3 #### [facility] CLIA [id number] [address] [place] [address] [place] Monocytes/100 WBC (Bld) 14.2 % Normal [facility] Comment on above: Order Comment: Speci men Type: BLOOD SPECIMEN Ordering Facility: [facility] Address: [address] [place] [address] Performed By: #### 2 4323-8, 0-3 #### [facility] CLIA [id number] [address] [place] [address] [place] Neutrophils (Bld) [#/Vol] 4.42 10*3/uL Normal 1.45-7.50 [facility] Comment on above: Order Comment: Speci men Type: BLOOD SPECIMEN Ordering Facility: [facility] Address: [address] [place] [address] Performed By: #### 2 4323-8, 0-3 #### [facility] CLIA [id number] [address] [place] [address] [place] Neutrophils/100 WBC (Bld) 66.6 % Normal [facility] Comment on above: Order Comment: Speci men Type: BLOOD SPECIMEN Ordering Facility: [facility] Address: [address] [place] [address] Performed By: #### 2 4323-8, 3040-3 #### [facility] CLIA [id number] [address] [place] [address] [place] Nucleated RBC (Bld) [#/Vol] 10*3/uL Normal <0.01 [facility] Comment on above: Order Comment: Speci men Type: BLOOD SPECIMEN Ordering Facility: [facility] Address: [address] [place] [address] Performed By: #### 2 4323-8, 3040-3 #### [facility] CLIA [id number] [address] [place] [address] [place] Nucleated RBC/100 WBC (Bld) [Ratio] 0.0 /100 WBC Normal [facility] Comment on above: Order Comment: Speci men Type: BLOOD SPECIMEN Ordering Facility: [facility] Address: [address] [place] [address] Performed By: #### 2 4323-8, 0-3 #### [facility] CLIA [id number] [address] [place] [address] [place] Platelet mean volume (Bld) [Entitic vol] 9.8 fL Normal 9.0-12.7 [facility] Comment on above: Order Comment: Speci men Type: BLOOD SPECIMEN Ordering Facility: [facility] Address: [address] [place] [address] Performed By: #### 2 432-8, 0-3 #### [facility] CLIA [id number] [address] [place] [address] [place] Platelets (Bld) [#/Vol] 353 10*3/uL Normal 150-400 [facility] Comment on above: Order Comment: Speci men Type: BLOOD SPECIMEN Ordering Facility: [facility] Address: [address] [place] [address] Performed By: #### 2 4323-8, 0-3 #### [facility] CLIA [id number] [address] [place] [address] [place] RBC (Bld) [#/Vol] 4.19 10*6/uL Normal 3.90-5.20 [facility] Comment on above: Order Comment: Speci men Type: BLOOD SPECIMEN Ordering Facility: [facility] Address: [address] [place] [address] Performed By: #### 2 4323-8, 3040-3 #### [facility] CLIA [id number] [address] [place] [address] [place] WBC (Bld) [#/Vol] 6.62 10*3/uL Normal 3.70-11.00 [facility] Comment on above: Order Comment: Speci men Type: BLOOD SPECIMEN Ordering Facility: [facility] Address: [address] [place] [address] Performed By: #### 2 4323-8, 3040-3 #### [facility] CLIA [id number] [place] CONSULTon 01-18-2024 CONSULT HNO ID: [id number] Author: DAWN CABELLO APRN.CNP Service: Gastroenterology Author Type: Nurse Practitioner Type: Consults Filed: 01/18/2024 16:30 Note Text: GI INITIAL CONSULT NOTE SERVICE DATE: 01/18/2024 SERVICE TIME: 1510 REASON FOR CONSULT: crohn's flare REQUESTING PHYSICIAN: Brigitte Tran, PRIMARY CARE PHYSICIAN: Kale Rendon MD ASSESSMENT/PLAN 1.) Crohn's colitis, without complications (HCC) (POA: Yes) 2.) Abdominal pain 3.) Diverting ileostomy 2017 4.) Seton drain 2018 No leukocytosis, afebrile Hgb 11.3 - improved from prior labs which were done during her recent Abd exam: soft, non-distended, moderate diffuse tenderness on palpation CTAP today showed diffuse colonic wall thickening and pericolonic stranding changes consistent with colitis. Partiall imaged seton in the perianal region. MRI abd/pelvis 07/2023 showed active inflammation involving the ascending colon, transverse colon and descending colon. Sparing the rectum. No definite small bowel inflammation though exam limited due to gravid uterus. Last scopes 12/2022 - details in HPI - added CRP/ESR to labs - Cdiff neg, EBP pending, added fecal heriberto - pre biologic workup ordered - IV solumedrol 20 mg Q8 Likely will require repeat scopes to evaluate mucosa, has not been on any treatment bedsides a steroid taper 07/2023 and did not follow up with GI (08/21/23 - cancelled apt) Will discuss case with Dr. Humphries Subjective Ms. Aguilar is a 28 year old female with Crohn's disease, perianal abscess, ileostomy (2018- Dr. Tai) who presented with abdominal pain and diarrhea. GI is being consulted for crohn's flare. Pt dx with crohn's in high school and had tried humira but then lost insurance and was off too long so could not go back on, then fidelisela in 2017 but had antibodies per pt and stopped. After last scope 12/2022 she was started on Imuran prior to knowing she was and then stopped couple months later when she found out. She had her child in oct and has had a hard time recovering from Csection. Has prolapsed ileostomy for couple years now, very upset was not reversed. Was planning to start remicade at some point but with the did not. Ostomy output with no blood, liquid brown. She also has seton drain in place which drains stool intermittently per pt. Previous endoscopic evaluations Ileoscopy 01/18/23 Impression: - Moderate to severe inflammed mucosa was seen in the colon. Biopsied. Estimated Blood Loss: Estimated blood loss was minimal. Recommendation: - Return patient to hospital chew for ongoing care. - Clear liquid diet today. - Continue present medications. - Await pathology results. Colonoscopy 01/18/2023 Impression: - Preparation of the colon was fair. - Mucosal ulceration in the sigmoid colon. Biopsies taken during ileoscopy. - No specimens collected. Estimated Blood Loss: Estimated blood loss was minimal. Recommendation: - Return patient to hospital chew for ongoing care. - Clear liquid diet today. - Continue present medications. Colonoscopy 09/2020 (Dr. Serna) Impression: Seton noted. Diversion colitis. - Rectal tenderness found on digital rectal exam. - Friability with no bleeding in the entire examined colon. Biopsied. - Simple Endoscopic Score for Crohn's Disease: 13, mucosal inflammatory changes secondary to Crohn's disease with colonic involvement vs diversion colitis. Biopsied. Colonoscopy 2019 (Dr. Kern) Impression: - Preparation of the colon was fair. Procedure aborted/incomplete in the mid-transverse colon due to large stool ball precluding visulaization and further advancement of the scope. 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 - Stricture at the anus and in the distal rectum. - Simple Endoscopic Score for Crohn's Disease: 12, mucosal inflammatory changes secondary to Crohn's disease. Biopsied. - Multiple polyps in the entire colon. Biopsied. - Overall, picture consistent with diversion colitis and inflammatory polyps likely in the setting of healed up colitis. Estimated Blood Loss: Estimated blood loss: none. Recommendation: - Repeat colonoscopy under MAC at the next available appointment because the examination was incomplete. - Return to referring physician as previously scheduled. - Resume previous diet today. - Continue present medications. - Await pathology results. 08/2018 SURGERY/PROCEDURE: Exam under anesthesia, flexible sigmoidoscopy, incision and drainage of deep postanal space abscess, seton and drain placement. CORS 08/2018 SURGERY/PROCEDURE: Laparoscopic creation of diverting loop ileostomy, laparoscopic TAP block, examination under anesthesia with flexible sigmoidoscopy with biopsies, incision and drainage of complex perianal and supralevator abscesses with drain and seton placement. FUNCTIONAL STATUS: Independent Labs: WBC 6.62, Hgb 11.3, Hct 35.4, Plt (more content not included)... Normal [facility] CRP SerPl-mCncon 01-18-2024 CRP [Mass/Vol] 14.8 mg/dL High <0.9 [facility] Comment on above: Order Comment: Speci men Type: BLOOD SPECIMEN Ordering Facility: [facility] Address: [address] [place] [address] Performed By: #### 1 988-5, 2276-4 #### [facility] CLIA [id number] [address] [place] [address] [place] CT ABD/PEL W IVCONon 024 CT ABD/PEL W IVCON * * *Final Report* * * DATE OF EXAM: Jan 18 2024 1:06AM [facility]VC 0530 - CT ABD/PEL W IVCON / PROCEDURE REASON: Abdominal abscess/infection suspected * * * * Physician Interpretation * * * * EXAMINATION: CT ABDOMEN AND PELVIS WITH IV CONTRAST CLINICAL HISTORY: Lower abdomen pain TECHNIQUE: CT of the abdomen and pelvis was performed using standard technique, scanning from just above the dome of the diaphragm to the symphysis pubis. MQ: CTAP_3 Contrast: IV: 100 ml of Omnipaque 350 CT Radiation dose: Integrated Dose-length product (DLP) for this visit = 721 mGy*cm. CT Dose Reduction Employed: Automated exposure control (AEC) COMPARISON: 01/16/2023 RESULT: Liver: No mass. Biliary: No bile duct dilation. Spleen: No mass. No splenomegaly. Pancreas: No mass or duct dilation. Adrenals: No mass. Kidneys: No mass, calculus or hydronephrosis. GI tract: Partially imaged seton in the perianal region. Diffuse colonic wall thickening and pericolonic stranding changes. 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 Lymph nodes: No abdominal or pelvic lymphadenopathy. Mesentery/Peritoneum: No ascites or mass. Retroperitoneum: No mass. Vasculature: No acute vascular pathology. Pelvis: No mass, ascites or fluid collection. Bones/Soft Tissues: No significant finding. Lower thorax: Unremarkable. Localizer images: Unremarkable. IMPRESSION: Diffuse colonic wall thickening and pericolonic stranding changes consistent with colitis. Partially imaged seton in the perianal region. Blast Hole Driller: PSCMichael Transcribe Date/Time: Jan 18 2024 1:30A Dictated by : GINI GALARZA MD This examination was interpreted and the report reviewed and electronically signed by: GINI GALARZA MD on Jan 18 2024 1:36AM EST [id number] Normal [facility] Calprotectin (Stl) [Mass/Mas s]on 01-18-2024 CALPROTECTIN, FECAL QUANTITATIVE 114 ug/g High <50 [facility] Comment on above: Order Comment: Speci men Type: STOOL SPECIMEN Ordering Facility: [facility] Address: [address] [place] [address] Performed By: #### 5 4067-4, 26072-4 #### [facility] CLIA [id number] [address] [place] [address] [place] Comp Metab 2000 Pnl SerPlon 01-18-2024 Glucose [Mass/Vol] 116 mg/dL High 60-105 [facility] Comment on above: Order Comment: Speci men Type: BLOOD SPECIMEN Ordering Facility: [facility] Address: [address] [place] [address] Result Comment: The [place] [employer] (ADA) provides guidance for cutoff values for fasting glucose and random glucose. The ADA defines fasting as no caloric intake for at least 8 hours. Fasting plasma glucose results between 100 to 125 mg/dL indicate increased risk for diabetes (prediabetes). Fasting plasma glucose results greater than or equal to 126 mg/dL meet the criteria for diagnosis of diabetes. In the absence of unequivocal hyperglycemia, results should be confirmed by repeat testing. In a patient with classic symptoms of hyperglycemia or hyperglycemic crisis, random plasma glucose results greater than or equal to 200 mg/dL meet the criteria for diagnosis of diabetes. Reference: Standards of Medical Care in Diabetes 2016, [place] [employer]. Diabetes Care. 2016.39(Suppl 1). Performed By: #### 2 4323-8, 3040-3 #### [facility] CLIA [id number] [address] [place] [address] [place] Comprehensive metabolic 2000 panelon 01-18-2024 Albumin [Mass/Vol] 3.5 g/dL Low 3.9-4.9 [facility] Comment on above: Order Comment: Speci men Type: BLOOD SPECIMEN Ordering Facility: [facility] Address: [address] [place] [address] Performed By: #### 2 4323-8, 3040-3 #### [facility] CLIA [id number] [address] [place] [address] [place] ALP [Catalytic activity/Vol] 103 U/L Normal 34-123 [facility] Comment on above: Order Comment: Speci men Type: BLOOD SPECIMEN Ordering Facility: [facility] Address: [address] [place] [address] Performed By: #### 2 4323-8, 3040-3 #### [facility] CLIA [id number] [address] [place] [address] [place] ALT [Catalytic activity/Vol] 7 U/L Normal 7-38 [facility] Comment on above: Order Comment: Speci men Type: BLOOD SPECIMEN Ordering Facility: [facility] Address: [address] [place] [address] Performed By: #### 2 4323-8, 3040-3 #### [facility] CLIA [id number] [address] [place] [address] [place] Anion gap [Moles/Vol] 13 mmol/L Normal 9-18 [facility] Comment on above: Order Comment: Speci men Type: BLOOD SPECIMEN Ordering Facility: [facility] Address: [address] [place] [address] Performed By: #### 2 4323-8, 0-3 #### [facility] CLIA [id number] [address] [place] [address] [place] AST [Catalytic activity/Vol] 11 U/L Low 13-35 [facility] Comment on above: Order Comment: Speci men Type: BLOOD SPECIMEN Ordering Facility: [facility] Address: [address] [place] [address] Performed By: #### 2 4323-8, 0-3 #### [facility] CLIA [id number] [address] [place] [address] [place] Bilirubin [Mass/Vol] 0.3 mg/dL Normal 0.2-1.3 [facility] Comment on above: Order Comment: Speci men Type: BLOOD SPECIMEN Ordering Facility: [facility] Address: [address] [place] [address] Performed By: #### 2 4323-8, 3039-3 #### [facility] CLIA [id number] [address] [place] [address] [place] Calcium [Mass/Vol] 8.8 mg/dL Normal 8.5-10.2 [facility] Comment on above: Order Comment: Speci men Type: BLOOD SPECIMEN Ordering Facility: [facility] Address: [address] [place] [address] Performed By: #### 2 4323-8, 0-3 #### [facility] CLIA [id number] [address] [place] [address] [place] Chloride [Moles/Vol] 98 mmol/L Normal 97-105 [facility] Comment on above: Order Comment: Speci men Type: BLOOD SPECIMEN Ordering Facility: [facility] Address: [address] [place] [address] Performed By: #### 2 4323-8, 0-3 #### [facility] CLIA [id number] [address] [place] [address] [place] CO2 [Moles/Vol] 24 mmol/L Normal 22-30 [facility] Comment on above: Order Comment: Speci men Type: BLOOD SPECIMEN Ordering Facility: [facility] Address: [address] [place] [address] Performed By: #### 2 4323-8, 0-3 #### [facility] CLIA [id number] [address] [place] [address] [place] Creatinine [Mass/Vol] 0.72 mg/dL Normal 0.58-0.96 [facility] Comment on above: Order Comment: Specblanca men Type: BLOOD SPECIMEN Ordering Facility: [facility] Address: [address] [place] [address] Performed By: #### 2 4323-8, 3 #### [facility] CLIA [id number] [address] [place] [address] [place] Creatinine and Glomerular filtration rate.predicted panel (S/P/Bld) 117 mL/min/1.73m??? Normal >=60 [facility] Comment on above: Order Comment: [place]a [place] rio Type: BLOOD SPECIMEN Ordering Facility: [facility] Address: [address] [place] [address] Result Comment: Alysha mated Glomerular Filtration Rate (eGFR) is calculated using the 2020 CKD-EPI creatinine equation. This equation utilizes serum creatinine, sex, and age as parameters. The creatinine assay has traceable calibration to isotope dilution-mass spectrometry. Refer to KDIGO guidelines for clinical interpretation. In patients with unstable renal function, e.g. those with acute kidney injury, the eGFR may not accurately reflect actual GFR. Performed By: #### 2 4323-8, 3039-3 #### [facility] CLIA [id number] [address] [place] [address] [place] Potassium [Moles/Vol] 3.4 mmol/L Low 3.7-5.1 [facility] Comment on above: Order Comment: [place]a [place] rio Type: BLOOD SPECIMEN Ordering Facility: [facility] Address: [address] [place] [address] Performed By: #### 2 4323-8, 0-3 #### [facility] CLIA [id number] [address] [place] [address] [place] Protein [Mass/Vol] 7.2 g/dL Normal 6.3-8.0 [facility] Comment on above: Order Comment: Speci men Type: BLOOD SPECIMEN Ordering Facility: [facility] Address: [address] [place] [address] Performed By: #### 2 4323-8, 3040-3 #### [facility] CLIA [id number] [place] [address] [place] Sodium [Moles/Vol] 135 mmol/L Low 136-144 [facility] Comment on above: Order Comment: Speci men Type: BLOOD SPECIMEN Ordering Facility: [facility] Address: [address] [place] [address] Performed By: #### 2 4323-8, 3040-3 #### [facility] CLIA [id number] [address] [place] [address] [place] Urea nitrogen [Mass/Vol] 7 mg/dL Normal 7-21 [facility] Comment on above: Order Comment: Speci men Type: BLOOD SPECIMEN Ordering Facility: [facility] Address: [address] [place] [address] Performed By: #### 2 4323-8, 3040-3 #### [facility] CLIA [id number] [address] [place] [address] [place] ECG COMPLETEon 01-18-2024 ECG COMPLETE Ventricular Rate : 7 9 BPM Atrial Rate : 79 BPM P-R Interval : 160 ms QRS Duration : 106 ms Q-T Interval : 379 ms QTC Calculation(Bazett) : 435 ms Calculated P Laurel : 36 degrees Calculated R Laurel : 52 degrees Calculated T Laurel : -4 degrees Sinus rhythm RSR' in V1 or V2, probably normal variant Borderline T abnormalities, inferior leads Borderline ECG Confirmed by MARGIE AGUIRRE MD ([id number]) on 01/27/2024 12:00:17 PM NAME : ROLA AGUILAR PID : [id number] : 1995 Gender : Female Race : ORD : [id number] Procedure Date : Jan 18 2024 07:57:49 Edit Date : Jan 27 2024 12:00:20 Diagnosis: Sinus rhythm RSR' in V1 or V2, probably normal variant Borderline T abnormalities, inferior leads Borderline ECG Confirmed by MARGIE AGUIRRE MD ([id number]) on 01/27/2024 12:00:17 PM Test Reason : Check QT Location : 400 : FVEKG PKTB Overread By : MARGIE AGUIRRE MD Edited By : MARGIE AGUIRRE MD Referred By : , Acquired by : RONEL ROB [facility] ED PROV NOTEon 01-18-2024 ED PROV NOTE HNO ID: [id number] Author: DIANE FONSECA MD Service: Emergency Medicine Author Type: Physician Type: ED Provider Notes Filed: 01/18/2024 21:58 Note Text: ED Provider Note Patient Name: Rola Aguilar : 1995 SERVICE DATE: 01/17/24 History Patient presents with: Abdominal Pain: PT is having a crohn's flair up. PT is having really sharp crapping pain to the lower abd and diarrhea for the past two days. PT is having a hard time keeping her ostomy bag on because of the diarrhea. 28-year-old female who has history of severe Crohn's disease not currently on any therapy and fallen out of follow-up with her previous clinical radiologist whom she has not seen since [address] Thakkar and colorectal for anticipated revision/reversal of her ostomy 3 months after her recent on 10/24 presents to the emergency department for abdominal pain nausea vomiting and diarrhea to the point where she is having such significant stool output that her ostomy bag is no longer able to remain in place reporting symptoms concerning for Crohn's flare. This is her third ER visit since the beginning of November. She was seen twice at [facility] in the month of November with 2 CT showing pancolitis discharged home on both occasions with steroid taper. Based on pattern she return to the emergency department 1 to 2 days after her steroids were completed and returns again today approximately 2 to 3 days after completing her most recent steroid taper. She denies fever. She has no urinary or vaginal symptoms. Denies chest pain or shortness of breath. No blood in ostomy bag. She is tearful. Some noncompliance with attempted follow-up as it does not appear that she has attempted to schedule an appointment with any clinical radiologist available to see her since her last 2 ER visits and she was under the impression that she was not able to see anyone besides Dr. Thakkar and was specifically told that nothing can be done until she can have surgical intervention 3+ months after her recent . She has previously been treated with Humira and Stelara for her Crohn's prior to her recent . She was on Imuran at time of which was subsequently discontinued. She is expecting to potentially start Remicade but does not have a specific start date as she needs to establish with gastroenterology to initiate this. History provided by: Medical records and patient lottery manager used: No 28 year old female female presents to the office for a follow up evaluation of crohn's disease. She was last seen in the office on 08/02/23. She was previously seen in the hospital on 05/01/23. 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 She has been on humira and stellara, but not remicade. She hasn't received treatment since 2018 and was supposed to be seen with Dr Cirilo Villa, but she canceled her appointment. PAST MEDICAL HISTORY Diagnosis Date Crohn's disease (HCC) History of transfusion 2017 anemia noted prior to surgery Migraine with aura Perianal abscess Seasonal allergies PAST SURGICAL HISTORY Procedure Laterality Date COLONOSCOPY GEN ANES 10/20/2020 EXCISION PILONIDAL CYST/SINUS SIMPLE 06/2016 PAST SURGICAL HISTORY OF 09/10/2018 Laparoscopic creation of diverting loop ileostomy, laparoscopic TAP block, examination under anesthesia with flexible sigmoidoscopy with biopsies, incision and drainage of complex perianal and supralevator abscesses with drain and seton placement. PAST SURGICAL HISTORY OF 08/26/2018 Exam under anesthesia, flexible sigmoidoscopy, incision and drainage of deep postanal space abscess, seton and drain placement. PAST SURGICAL HISTORY OF iliostomy FAMILY HISTORY Problem Relation Age of Onset Hodgkin Lymphoma Mother NON hodgkin Colon Cancer Other Social History Tobacco Use Smoking status: Former Packs/day: .5 Types: Cigarettes Smokeless tobacco: Never Tobacco comments: 3 per day Vaping Use Vaping Use: Never used Substance and Sexual Activity Alcohol use: Not Currently Comment: 1 per week Drug use: No Sexual activity: Yes Partners: Male control/protection: None ALLERGIES Allergen Reactions Hydromorphone Itching Review of Systems Constitutional: Negative for chills and fever. Respiratory: Negative for shortness of breath. Cardiovascular: Negative for chest pain. Gastrointestinal: Positive for abdominal pain, diarrhea, nausea and vomiting. Negative for blood in stool. Genitourinary: Negative for dysuria and vaginal discharge. Musculoskeletal: Negative. Skin: Negative. Allergic/Immunologic: Negative for immunocompromised state. Neurological: Negative for syncope and light-headedness. Hematological: Does not bruise/bleed easily. Psychiatric/Behavioral (more content not included)... Normal [facility] ESR Westergren method (Bld) [Velocity]on 01-18-2024 ESR (Bld) [Velocity] 57 mm/h High 0-20 [facility] Comment on above: Order Comment: Speci men Type: BLOOD SPECIMEN Ordering Facility: [facility] Address: [address] [place] [address] Performed By: #### 2 4323-8, 3040-3 #### [facility] CLIA [id number] [address] [place] [address] [place] Ferritin SerPl-mCncon 2023 Ferritin [Mass/Vol] 315.9 ng/mL High 14.7-205.1 [facility] Comment on above: Order Comment: Speci men Type: BLOOD SPECIMEN Ordering Facility: [facility] Address: [address] [place] [address] Performed By: #### 1 988-5, 2276-4 #### [facility] CLIA [id number] [address] [place] [address] [place] Gas and Carbon monoxide pane l (BldV)on 01-18-2024 Base excess Calc (BldV) [Moles/Vol] 1 mmol/L Normal 0-2 [facility] Comment on above: Order Comment: Speci men Type: BLOOD SPECIMEN Ordering Facility: [facility] Address: [address] [place] [address] Performed By: #### 2 4323-8, 3040-3 #### [facility] CLIA [id number] [address] [place] [address] [place] Body temperature 98.6 [degF] Normal [facility] Comment on above: Order Comment: Speci men Type: BLOOD SPECIMEN Ordering Facility: [facility] Address: [address] [place] [address] Performed By: #### 2 4323-8, 3039-3 #### [facility] CLIA [id number] [address] [place] [address] [place] [facility] [place] Calcium.ionized (Bld) [Mass/Vol] 1.11 mmol/L Normal 1.08-1.30 [facility] Comment on above: Order Comment: Speci men Type: BLOOD SPECIMEN Ordering Facility: [facility] Address: [address] [place] [address] Performed By: #### 2 4323-8, 3039-3 #### [facility] CLIA [id number] [address] [place] [address] [place] Calcium.ionized adjusted to pH 7.4 (BldA) [Moles/Vol] 1.13 mmol/L Normal 1.08-1.30 [facility] Comment on above: Order Comment: Speci men Type: BLOOD SPECIMEN Ordering Facility: [facility] Address: [address] [place] [address] Performed By: #### 2 4323-8, 3039-3 #### [facility] CLIA [id number] [address] [place] [address] [place] Carboxyhemoglobin (BldV) [Mass fraction] 2.6 % High 0.0-2.0 [facility] Comment on above: Order Comment: Speci men Type: BLOOD SPECIMEN Ordering Facility: [facility] Address: [address] [place] [address] Result Comment: Carb oxyhemoglobin Reference Range for Smokers: 2.0-8.0% Performed By: #### 2 4323-8, 0-3 #### [facility] CLIA [id number] [address] [place] [address] [place] Chloride [Moles/Vol] 104 mmol/L Normal 97-105 [facility] Comment on above: Order Comment: Speci men Type: BLOOD SPECIMEN Ordering Facility: [facility] Address: [address] [place] [address] Performed By: #### 2 4323-8, 0-3 #### [facility] CLIA [id number] [address] [place] [address] [place] CO2 (BldV) [Partial pressure] 37 mm[Hg] Low 42-55 [facility] Comment on above: Order Comment: Speci men Type: BLOOD SPECIMEN Ordering Facility: [facility] Address: [address] [place] [address] Performed By: #### 2 4323-8, 3040-3 #### [facility] CLIA [id number] [address] [place] [address] [place] HCO3 (Bld) [Moles/Vol] 24 mmol/L Normal 24-28 [facility] Comment on above: Order Comment: Speci men Type: BLOOD SPECIMEN Ordering Facility: [facility] Address: [address] [place] [address] Performed By: #### 2 4323-8, 0-3 #### [facility] CLIA [id number] [address] [place] [address] [place] Hematocrit (Bld) [Volume fraction] 35.9 % Low 36.0-46.0 [facility] Comment on above: Order Comment: Speci men Type: BLOOD SPECIMEN Ordering Facility: [facility] Address: [address] [place] [address] Performed By: #### 2 4323-8, 0-3 #### [facility] CLIA [id number] [address] [place] [address] [place] Hemoglobin (Bld) [Mass/Vol] 11.6 g/dL Normal 11.5-15.5 [facility] Comment on above: Order Comment: Speci men Type: BLOOD SPECIMEN Ordering Facility: [facility] Address: [address] [place] [address] Performed By: #### 2 4323-8, 3040-3 #### [facility] CLIA [id number] [address] [place] [address] [place] Lactate [Moles/Vol] 0.7 mmol/L Normal 0.5-2.2 [facility] Comment on above: Order Comment: Speci men Type: BLOOD SPECIMEN Ordering Facility: [facility] Address: [address] [place] [address] Performed By: #### 2 4323-8, 0-3 #### [facility] CLIA [id number] [address] [place] [address] [place] Methemoglobin (Bld) [Mass fraction] 0.6 % Normal 0.0-1.5 [facility] Comment on above: Order Comment: Speci men Type: BLOOD SPECIMEN Ordering Facility: [facility] Address: [address] [place] [address] Performed By: #### 2 43238, 0-3 #### [facility] CLIA [id number] [address] [place] [address] [place] O2 THERAPY RA=Room Air Normal [facility] Comment on above: Order Comment: Speci men Type: BLOOD SPECIMEN Ordering Facility: [facility] Address: [address] [place] [address] Performed By: #### 2 4328, 0-3 #### [facility] CLIA [id number] [address] [place] [address] [place] Oxygen (BldV) [Partial pressure] 130 mm[Hg] High 35-45 [facility] Comment on above: Order Comment: Speci men Type: BLOOD SPECIMEN Ordering Facility: [facility] Address: [address] [place] [address] Performed By: #### 2 4323-8, 0-3 #### [facility] CLIA [id number] [address] [place] [address] [place] Oxygen saturation in Venous blood 99 % High 60-85 [facility] Comment on above: Order Comment: Speci men Type: BLOOD SPECIMEN Ordering Facility: [facility] Address: [address] [place] [address] Performed By: #### 2 4323-8, 0-3 #### [facility] CLIA [id number] [address] [place] [address] [place] Oxyhemoglobin (BldV) [Mass fraction] 96 % High 60-85 [facility] Comment on above: Order Comment: Speci men Type: BLOOD SPECIMEN Ordering Facility: [facility] Address: [address] [place] [address] Performed By: #### 2 4323-8, 3040-3 #### [facility] CLIA [id number] [address] [place] [address] [place] pH (BldV) 7.44 [pH] High 7.32-7.42 [facility] Comment on above: Order Comment: Speci men Type: BLOOD SPECIMEN Ordering Facility: [facility] Address: [address] [place] [address] Performed By: #### 2 4323-8, 0-3 #### [facility] CLIA [id number] [address] [place] [address] [place] Potassium [Moles/Vol] 3.3 mmol/L Low 3.5-5.0 [facility] Comment on above: Order Comment: Speci men Type: BLOOD SPECIMEN Ordering Facility: [facility] Address: [address] [place] [address] Performed By: #### 2 4323-8, 0-3 #### [facility] CLIA [id number] [address] [place] [address] [place] Sodium [Moles/Vol] 137 mmol/L Normal 136-144 [facility] Comment on above: Order Comment: Speci men Type: BLOOD SPECIMEN Ordering Facility: [facility] Address: [address] [place] [address] Performed By: #### 2 4323-8, 0-3 #### [facility] CLIA [id number] [address] [place] [address] [place] Gastrointestinal pathogens i dentified CORONA+probe Nom (Stl)on 01-18-2024 Campylobacter sp DNA CORONA+probe Nom (Unsp spec) Not detected Normal Not Detected [facility] Comment on above: Order Comment: Speci men Type: STOOL SPECIMENOrdering Facility: [facility] Address: [address] [place] [address] Performed By: #### 7 9390-1 ####[facility] [id number] [place] [address] [place] Salmonella sp DNA CORONA+probe Ql (Unsp spec) Not detected Normal Not Detected [facility] Comment on above: Order Comment: Speci men Type: STOOL SPECIMENOrdering Facility: [facility] Address: [address] [place] [address] Performed By: #### 7 9390-1 ####[facility] [id number] [place] [address] [place] Shiga toxin stx gene CORONA+probe Nom (Unsp spec) Not detected Normal Not Detected [facility] Comment on above: Order Comment: Speci men Type: STOOL SPECIMENOrdering Facility: [facility] Address: [address] [place] [address] Performed By: #### 7 9390-1 ####[facility] [id number] [address] [place] Shigella sp DNA CORONA+probe Ql (Unsp spec) Not detected Normal Not Detected [facility] Comment on above: Order Comment: Speci men Type: STOOL SPECIMENOrdering Facility: [facility] Address: [address] [place] [address] Performed By: #### 7 9390-1 ####[facility] [id number] [place] [address] [place] HAV IgM Ser Qlon 01-18-2024 HAV IgM Ql (S) Negative Normal Negative [facility] Comment on above: Order Comment: Speci men Type: BLOOD SPECIMEN Ordering Facility: [facility] Address: [address] [place] [address] Result Comment: No e vidence of recent infection with Hepatitis A virus. Performed By: #### 2 4323-8, 3040-3 #### [facility] CLIA [id number] [address] [place] [address] [place] HBV core IgM Ser Qlon 2023 HBV core IgM Ql (S) Negative Normal Negative [facility] Comment on above: Order Comment: Speci men Type: BLOOD SPECIMEN Ordering Facility: [facility] Address: [address] [place] [address] Result Comment: No e vidence of recent infection with Hepatitis B virus. Should recent infection be suspected, repeat testing may be considered 3-4 weeks after this draw. Performed By: #### 2 4323-8, 3040-3 #### [facility] CLIA [id number] [address] [place] [address] [place] HBV surface Ab Ql (S)on 12-23 HBV surface Ab Qn (S) <8.00 Normal [facility] Comment on above: Order Comment: [facility] Type: BLOOD SPECIMEN Ordering Facility: [facility] Address: [address] [place] [address] Result Comment: <8 m IU/mL: No serological evidence of immunity to Hepatitis B Virus. >/= 8 to <12 mIU/mL: No serological evidence of immunity to Hepatitis B Virus. >/= 12 mIU/mL: Consistent with serological evidence of immunity to Hepatitis B Virus. Performed By: #### 2 4323-8, 0-3 #### [facility] CLIA [id number] [address] [place] [address] [place] HBV surface Ab Ser Qlon 12-23 HBV surface Ab Ql (S) Negative Normal [facility] Comment on above: Order Comment: [facility] Type: BLOOD SPECIMEN Ordering Facility: [facility] Address: [address] [place] [address] Result Comment: No s erological evidence of immunity to Hepatitis B Virus. Performed By: #### 2 4323-8, 3040-3 #### [facility] CLIA [id number] [address] [place] [address] [place] HBV surface Ag Ser Qlon 12-23 HBV surface Ag Ql (S) Negative Normal Negative [facility] Comment on above: Order Comment: [facility] Type: BLOOD SPECIMEN Ordering Facility: [facility] Address: [address] [place] [address] Performed By: #### 2 4323-8, 0-3 #### [facility] CLIA [id number] [address] [place] [id number] [place] HCG QUALITATIVEon 01-18-2024 HCG, QUALITATIVE Negative Normal Negative [facility] Comment on above: Order Comment: Speci men Type: STOOL SPECIMEN Ordering Facility: [facility] Address: [address] [place] [address] Performed By: #### 5 4067-4, 77323-8 #### [facility] CLIA [id number] [address] [place] [address] [place] HCV Ab Ser Qlon 01-18-2024 HCV Ab Ql (S) Negative Normal Negative [facility] Comment on above: Order Comment: Speci men Type: BLOOD SPECIMENOrdering Facility: [facility] Address: [address] [place] [address] Result Comment: The result suggests no evidence of active infection with Hepatitis C virus. Should recent infection be suspected, repeat testing may be considered 4-6 weeks after this draw. Performed By: #### 1 6128-1 ####[facility] [id number] [place] [address] [place] HISTORY PHYSICALon HISTORY PHYSICAL HNO ID: [id number] Author: MASHA CEDILLO MD Service: General Internal Medicine Author Type: Physician Type: H&P Filed: 01/18/2024 14:17 Note Text: HISTORY AND PHYSICAL EXAMINATION SERVICE DATE: 01/18/2024 SERVICE TIME: 1:37 PM PRIMARY CARE PHYSICIAN: Kale Rendon MD Subjective CHIEF COMPLAINT: Abdominal pain and diarrhea HPI: This is a 28 year old woman with Crohn's disease. She presents with a 2-day history of abdominal pain, cramping and diarrhea. She has had recurrent flares over the past 2 months. She was seen at [facility] twice in November. CT scan findings were significant for pancolitis. These were managed as outpatient with oral steroid taper. She completed her steroid taper 3 days ago. She is not currently following with gastroenterology. She is on no current treatment for Crohn's disease. Plan is recent resume therapy after she delivered. She had a section in October 2023. Followed by colorectal surgery. She is status post diverting loop ileostomy. Currently she is still having significant abdominal pain. She denies fever or chills. She denies any blood in her stool. FUNCTIONAL STATUS: Independent PAST MEDICAL HISTORY Diagnosis Date Crohn's disease (HCC) History of transfusion 2017 anemia noted prior to surgery Migraine with aura Perianal abscess Seasonal allergies PAST SURGICAL HISTORY Procedure Laterality Date COLONOSCOPY GEN ANES 10/20/2020 EXCISION PILONIDAL CYST/SINUS SIMPLE 06/2016 PAST SURGICAL HISTORY OF 09/10/2018 Laparoscopic creation of diverting loop ileostomy, laparoscopic TAP block, examination under anesthesia with flexible sigmoidoscopy with biopsies, incision and drainage of complex perianal and supralevator abscesses with drain and seton placement. PAST SURGICAL HISTORY OF 08/26/2018 Exam under anesthesia, flexible sigmoidoscopy, incision and drainage of deep postanal space abscess, seton and drain placement. PAST SURGICAL HISTORY OF iliostomy FAMILY HISTORY Problem Relation Age of Onset Hodgkin Lymphoma Mother NON hodgkin Colon Cancer Other Social History Tobacco Use Smoking status: Former Packs/day: .5 Types: Cigarettes Smokeless tobacco: Never Tobacco comments: 3 per day Vaping Use Vaping Use: Never used Substance Use Topics Alcohol use: Not Currently Comment: 1 per week Drug use: No ferrous sulfate 325 mg (65 mg iron) tablet, Take 1 tablet by mouth every other day. (Patient not taking: Reported on 01/18/2024), Disp: 15 tablet, Rfl: 2, Not Taking SUMAtriptan (IMITREX) 25 mg tablet, Take 1 tablet (25 mg) by mouth two times a day as needed for migraine headache (see administration instructions). at onset of headache. May repeat after 2 hours. (Patient not taking: Reported on 11/15/2023), Disp: 2 tablet, Rfl: 0 sertraline (ZOLOFT) 50 mg tablet, Take 1 tablet by mouth once daily. (Patient not taking: Reported on 01/18/2024), Disp: 90 tablet, Rfl: 3, Not Taking VIT 90-NBJR-BMSGB-DHA ORAL, Take by mouth. (Patient not taking: Reported on 01/18/2024), Disp: , Rfl: , Not Taking ALLERGIES Allergen Reactions Hydromorphone Itching COMPLETE REVIEW OF SYSTEMS: PAIN ASSESSMENT: See HPI GENERAL: Negative for fever, chills HEENT: Negative for blurred vision, sore throat, ear pain RESPIRATORY: Negative for cough, shortness of breath CARDIOVASCULAR: Negative for chest pain. Positive palpitations when standing GI: See HPI : Negative dysuria [employer] TE[employer]ER: Current menstrual cycle MUSCULOSKELETAL: Negative back pain, joint pain SKIN: Negative rash PSYCH: Positive depression NEURO: Negative headache, numbness tingling Objective PHYSICAL EXAM: Physical Exam Performed: GENERAL: Alert, cooperative. Distress due to pain SKIN: Warm, dry EYES: Sclera anicteric EARS: Not examined OROPHARYNX: Normal-appearing tongue and lips NECK: No JVD, no bruits LUNGS: Normal respiratory pattern and effort, no wheeze CARDIAC: Regular rate, regular rhythm ABDOMEN: Ileostomy in place. Hypoactive bowel sounds. Moderate tenderness diffusely EXTREMITIES: No edema NEURO: Cranial nerves II through X are grossly intact PULSES: 2+ carotids, radial BP 120/69 Pulse 73 Temp (Src) 98.1 (Oral) Resp 16 Ht 5' 6 (1.68m) Wt 178 lb 9.2 oz (81.0kg) SpO2 97% LMP 01/30/2023 BMI 28.84 kg/(m2). O2 Therapy: Room Air DATA: Diagnostic tests reviewed for today's visit: Most recent labs and imaging results. Assessment/Plan Active Hospital Problems Crohn's colitis, without complications (HCC) (POA: Yes) Ileostomy in place (HCC) (POA: Yes) Principal Problem: 28-year-old woman with severe Crohn's disease presenting with recurring abdominal pain, cramping and diarrhea. Patient has been treated for flares twice already in the last 2 months with steroid tapers. Symptoms flare recur when she is tapered off the steroids. Crohn's disease Abdominal pain Diarrhea -Consul (more content not included)... Normal [facility] Iron and Iron binding capaci ty panelon 01-18-2024 Iron [Mass/Vol] 21 ug/dL Low 41-186 [facility] Comment on above: Order Comment: Speci men Type: STOOL SPECIMEN Ordering Facility: [facility] Address: [address] [place] [address] Performed By: #### 5 4067-4, 10479-2 #### [facility] CLIA [id number] [address] [place] [address] Iron binding capacity [Mass/Vol] 218 ug/dL Low 232-386 [facility] Comment on above: Order Comment: Speci men Type: STOOL SPECIMEN Ordering Facility: [facility] Address: [address] [place] [address] Performed By: #### 5 4067-4, 51427-0 #### [facility] CLIA [id number] [address] [place] [address] Iron/TIBC [Molar ratio] 9.6 % Low 20.0-55.0 [facility] Comment on above: Order Comment: Speci men Type: STOOL SPECIMEN Ordering Facility: [facility] Address: [address] [place] [address] Performed By: #### 5 4067-4, 97262-5 #### [facility] CLIA [id number] [address] [place] [address] [place] Lipase SerPl-cCncon 01-18-20 24 Lipase [Catalytic activity/Vol] 23 U/L Normal 16-61 [facility] Comment on above: Order Comment: Speci men Type: BLOOD SPECIMEN Ordering Facility: [facility] Address: [address] [place] [address] Performed By: #### 2 4323-8, 3040-3 #### [facility] CLIA [id number] [address] [place] [address] [place] NURSING PROGon 01-18-2024 NURSING PROG HNO ID: [id number] Author: SOLIS CHEEMA, RN Service: Nursing Author Type: Registered Nurse Type: Nursing Progress Note Filed: 01/18/2024 21:29 Note Text: Pt call nurse and reported feeling like she was going to have a panic attack . This nurse inquired into cause and pt stated no true cause just the fact that she is in the hospital away from her children. She requested prn anxiety medication preferably ativan, she was ordered atarax PO prn. When she was notified of the prn atarax order, she was instantly tearful, hyperventilating and full of anxiety stating that the atarax wont work and went on to request to be discharged and to have the colonoscopy outpatient that is planned for Saturday. She adamantly denied depression, denied post depression but was able to be encouraged to try the atarax. She was administered 50 mg PO and a secure text was sent to on-call at #[phone] to relay the request for discharge and f/u outpatient with the colonoscopy. Awaiting response from on-call regarding pt request. [facility] NURSING PROG HNO ID: [id number] Author: SOLIS CHEEMA, RN Service: Nursing Author Type: Registered Nurse Type: Nursing Progress Note Filed: 01/18/2024 07:35 Note Text: Pt c/o pain with prn tylenol offered and declined per pt d/t nausea. On-call notified via secure text of pt complaints and inability to consume PO analgesic options at this time. Awaiting response. [facility] NURSING PROG HNO ID: [id number] Author: SOLIS CHEEMA RN Service: Nursing Author Type: Registered Nurse Type: Nursing Progress Note Filed: 01/18/2024 07:34 Note Text: Transfer Note: PATIENT NAME: Rola Aguilar Patient Location: [place] [address] [address] Room: [place] [address] Patient transferred into room/unit [facility] in stable condition. Actions taken: Patient belongings with patient. Pt was oriented to the room, call light, hourly rounding, safety practices and when to call for assistance. Colostomy bag intact. Pt is ambulatory independently. No s/s of acute distress. [facility] TPMT GENOTYPEon 01-18-2024 TPMT GENOTYPE TPMT*1/TPMT*1 (TP11) Normal [facility] Comment on above: Order Comment: Speci men Type: BLOOD SPECIMEN Ordering Facility: [facility] Address: [address] [place] [address] Performed By: #### 2 4323-8, 3040-3 #### [facility] CLIA [id number] [address] [place] [address] [place] TPMT PREDICTED PHENOTYPE TPMT Genotyping [facility] Comment on above: Order Comment: Speci men Type: BLOOD SPECIMEN Ordering Facility: [facility] Address: [address], [place] [address] Result Comment: Laboratory Accession Number: [id number] Result: TPMT Genotype: *1/*1 TPMT Predicted Phenotype: TPMT Normal Metabolizer Interpretation: Two normal function alleles have been identified in this sample (see variant details below). This is associated with a TPMT normal metabolizer phenotype. TPMT normal metabolizers are expected to tolerate normal starting doses of medications metabolized by the TPMT enzyme. Please consult a clinical pharmacist for more information regarding drug therapy. Questions regarding molecular testing details should be directed to [email or web address]. The TPMT gene encodes thiopurine S-methyltransferase (TPMT). This enzyme is involved in the metabolism of thiopurine drugs. For clinical correlation, drug-specific guidelines are available to provide phenotype assignment and therapeutic recommendations based on phenotype. Patients who carry genetic variants associated with altered metabolism may be at risk for an adverse or poor response to drugs that are predominantly metabolized by TPMT. For patients with altered TPMT activity, alternative pharmacological agents or dosing adjustments may be needed for medications metabolized by this enzyme to avoid an unexpected or adverse response. Variant Details (if any): NA Limitations: DNA studies do not provide a definitive genetic or pharmacogenomic risk in all individuals. This test is designed to detect a specific set of variants (see list below) in the TPMT gene (OMIM 355612). This test does not detect all sequence variants in TPMT. Uncommon variants or single nucleotide polymorphisms may affect binding of primers and probes and may result in false negative, false positive or indeterminate results. This test cannot distinguish between the more common *1/*3A genotype (Intermediate Metabolizer) and the rare *3B/*3C genotype (Poor Metabolizer). A TPMT enzyme activity assay may be an option to help distinguish these possibilities. The absence of abnormal variants as analyzed in this test is interpreted as the presence of *1/*1 (wild type/normal) genotype. The phenotype as provided in the interpretation may be impacted by undetected genetic factors. The clinical TPMT phenotype may be impacted by non-genetic factors such as drug-drug interactions. Methodology: Purified genomic DNA was subjected to polymerase chain reaction-based amplification. The TPMT gene (NM_000367.5) is interrogated for known, clinically relevant variants. Primer extension products were analyzed using matrix-assisted laser desorption/ionization mass spectrometry, and specific genotypes assigned were then translated to the appropriate star ( * ) allele (see list below). The reference genome used is GRCh38/hg38. TPMT star alleles: *1, *2, *3A, *3B, *3C, *4, *8, and *24. These alleles are detected using the presence, absence, or combination of the following variants, RefSNP ID: [id number], [id number], [id number], [id number], [id number], and [id number]. References: 1) Cuca CM, Eliseo REYNA, Catherine BARNETT. Thiopurine methyltransferase (TPMT) genotyping to predict myelosuppression risk. Plos Curr. 2011;2LAC3299. PMC ID: [id number]. 2) Chacho PEREYRA, Shirley Ramos, Siria Ramos, et al. Clinical Pharmacogenetics Implementation Consortium Guideline for Thiopurine Dosing Based on TPMT and NUDT15 Genotypes: 2018 Update. Clinical Pharmacology & Therapeutics (2019) 105(5): 5935-7438. 3) Siria Ramos, Shireen TORRES, Rivero JM, et al. Pharmacogenomics Knowledge for Personalized Medicine. Clinical Pharmacology & Therapeutics (2012) 92(4): 414-417. 4) Clinical Pharmacogenetics Implementation Consortium (CPIC): www.CPIPpgx.org Disclaimer: This test was developed and its performance characteristics determined by [facility] ([facility]). It has not been cleared or approved by the FDA. [facility] is regulated under CLIA as certified to perform high- complexity testing. This test is used for clinical purposes. It should not be regarded as investigational or for research. Testing and interpretation performed at [facility], [address] [place] [address]. CLIA Number: [id number] As reviewed by Silvana Crisostomo MD, PhD Performed By: #### 2 4323-8, 3040-3 #### [facility] CLIA [id number] [place] [address] [place] TPMT PHENOTYPE/ENZYME ACTIVI TYon 01-18-2024 TPMT ACTIVITY 29.7 U/mL Normal 24.0-44.0 [facility] Comment on above: Order Comment: [place]a [place] rio Type: BLOOD SPECIMEN Ordering Facility: [facility] Address: [address] [place] [address] Result Comment: INTE RPRETIVE INFORMATION: Thiopurine Methyltransferase, RBC Normal TPMT activity: 24.0-44.0 U/mL................Individuals are predicted to be at low risk of bone marrow toxicity (myelosuppression) as a consequence of standard thiopurine therapy; no dose adjustment is recommended. Intermediate TPMT activity: 17.0-23.9 U/mL................Individuals are predicted to be at intermediate risk of bone marrow toxicity (myelosuppression) as a consequence of standard thiopurine therapy; a dose reduction and therapeutic drug management is recommended. Low TPMT activity: less than 17.0 U/mL...........Individuals are predicted to be at high risk of bone marrow toxicity (myelosuppression) as a consequence of standard thiopurine dosing. It is recommended to avoid the use of thiopurine drugs. High TPMT activity: greater than 44.0 U/mL........Individuals are not predicted to be at risk for bone marrow toxicity (myelosuppression) as a consequence of standard thiopurine dosing, but may be at risk for therapeutic failure due to excessive inactivation of thiopurine drugs. Individuals may require higher than the normal standard dose. Therapeutic drug management is recommended. The TPMT, RBC assay is used as a screen to detect individuals with low and intermediate TPMT activity who may be at risk for myelosuppression when exposed to standard doses of thiopurines, including azathioprine (Imuran) and 6-mercaptopurine (Purinethol). TPMT is the primary metabolic route for inactivation of thiopurine drugs in the bone marrow. When TPMT activity is low, it is predicted that proportionately more 6-mercaptopurine can be converted into the cytotoxic 6-thioguanine nucleotides that accumulate in the bone marrow causing excessive toxicity. The activity of TPMT is measured by the nanomoles of 6-methylmercaptopurine (inactive metabolite) produced per 1 mL of packed red blood cells, (U/mL). TPMT phenotype testing does not replace the need for clinical monitoring of patients treated with thiopurine drugs. Genotype for TPMT cannot be inferred from TPMT activity (phenotype). Phenotype testing should not be requested for patients currently treated with thiopurine drugs. Current TPMT phenotype may not reflect future TPMT phenotype, particularly in patients who received blood transfusion within 30-60 days of testing. TPMT enzyme activity can be inhibited by several drugs such as: naproxen (Aleve), ibuprofen (Advil, Motrin), ketoprofen (Orudis), furosemide (Lasix), sulfasalazine (Azulfidine), mesalamine (Asacol), olsalazine (Dipentum), mefenamic acid (Ponstel), thiazide diuretics, and benzoic acid inhibitors. TPMT inhibitors may contribute to falsely low results; patients should abstain from these drugs for at least 48 hours prior to TPMT testing. Falsely low results may also occur as a result of inappropriate specimen handling and hemolysis. This test was developed and its performance characteristics determined by [facility]. It has not been cleared or approved by the US Food and Drug Administration. This test was performed in a CLIA certified laboratory and is intended for clinical purposes. Performed By: [facility] [address] [place] [address] Environmental Monitoring Technician: Lee Ann Adam MD, PhD CLIA Number: [id number] Performed By: #### 2 4323-8, 3040-3 #### [facility] CLIA [id number] [address] [place] [address] [place] XR CHEST 2V FRONTAL/LATon XR CHEST 2V FRONTAL/LAT * * *Final Report* * * DATE OF EXAM: Jan 18 2024 6:53PM FVX 5291 - XR CHEST 2V FRONTAL/LAT / PROCEDURE REASON: Other * * * * Physician Interpretation * * * * EXAMINATION: CHEST RADIOGRAPH (2 VIEW FRONTAL and LATERAL) CLINICAL HISTORY: Other, IBD plan for biologics MQ: XC2_6 EXAM DATE/TIME: 01/18/2024 6:53 PM COMPARISON: September 10, 2018 RESULT: Lines, tubes, and devices: None. Lungs and pleura: No consolidation, pleural effusion, or pneumothorax. Cardiomediastinal silhouette: Normal cardiomediastinal silhouette. Bones and soft tissues: Unremarkable. IMPRESSION: No acute radiographic abnormality. Blast Hole Driller: MARK Transcribe Date/Time: Jan 19 2024 1:01A Dictated by : MEAGHAN OROZCO MD This examination was interpreted and the report reviewed and electronically signed by: MEAGHAN OROZCO MD on Jan 19 2024 1:02AM EST [id number] Normal [facility] ED Triage Noteon 01-17-2024 ED Triage Note HNO ID: [id number] Author: KAYLYN CAMARENA DO Service: Emergency Medicine Author Type: Physician Type: ED Triage Notes Filed: 01/17/2024 23:53 Note Text: ED TRIAGE PROVIDER NOTE Patient Name: Rola Aguilar Service Date: 01/17/24 BRIEF HPI: This is a 28 year old female who presents to the ED with: Patient has Crohns colitis - S/P ileostomy. She is 3 months post- and hasn't been on Crohns medictions secondary to . Diarrhea increasing to the point she can't keept her ostomy bag on. Crampy abdominal pain is increasing. She denies recent antibiotics or travel BRIEF EXAM: Looks uncomfortable. Flexed forward in chair. BP 125/82 Pulse 107 Temp 98.6 Resp 16 Ht 5' 6 (1.68m) Wt 180 lb (81.6kg) SpO2 96% LMP 01/30/2023 BMI 29.07 kg/(m2). INITIAL WORKUP AND DECISION MAKING: Orders Placed This Encounter CT ABD/PEL W IVCON COMPREHENSIVE METABOLIC PANEL (BMP+LFT) LIPASE BLOOD CBC + AUTO DIFF BLOOD GASES VENOUS HCG URINE - ED(POC) Enteric Bacterial Panel by PCR iv contrast (radiology procedure) SIGNATURE: Kaylyn Camarena DO Normal [facility] ED Note-Physicianon 12-26-19 ED Note-Physician Basic Information Time Seen: Vanessa Rosa PA-C 12/21/2023 14:56 Chief Complaint pt c\o abd pain x1 month. states decreased output in ostomy x3 days with mucous drainage History of Present Illness 28-year-old female past medical history Crohn's who has an ileostomy presents for generalized abdominal pain for the past month with with a tablespoon of output for the past 3 days. She does have a clear thick and white drainage that is on her skin that she states is coming out of the bag. Denies radiation of pain. She gave 2 months ago and had a tubal ligation. Denies fever, back pain, n/v/d, dysuria, shortness of breath or chest pain Review of Systems Review of systems negative unless otherwise stated in HPI Physical Exam Vitals & Measurements T: 36.7 ?C(Oral) HR: 91(Peripheral) RR: 14 BP: 140/60 SpO2: 100% HT: 167 cm WT: 85 kg BMI: 30.48 GENERAL: ALERT, NO ACUTE DISTRESS SKIN: WARM, DRY, INTACT; NO CYANOSIS, NO RASH HEAD: NORMOCEPHALIC, ATRAUMATIC ENT: EYE: PERRL, EOMI, NORMAL CONJUNCTIVA, NO DISCHARGE NOSE: NARES PATENT MOUTH: ORAL MUCOSA MOIST THROAT: NO STRIDOR NECK: SUPPLE, TRACHEA MIDLINE, FROM RESPIRATORY: NON-LABORED RESPIRATIONS, SYMMETRICAL EXPANSION ABDOMEN: SOFT, generalized abdominal tenderness, NORMAL BS, NO ORGANOMEGALY, NON DISTENDED, NO REBOUND TENDERNESS,GUARDING OR PERITONEAL SIGNS EXTREMITIES: FROM X 4 NEUROLOGICAL: A&OX3 PSYCHIATRIC: COOPERATIVE, APPROPRIATE MOOD AND AFFECT Medical Decision Making Half of the labs are back with no acute findings, but due to shift change, case discussed and transferred to Dr. Macias for treatment disposition as labs and CT abdomen pelvis are pending. Care signed out to Dr. Graham. Assessment/Plan Ordered: morphine, 4 mg = 1 mL, Injection, IV Push, Once, Stop date 12/21/23 17:09:00 EDT, STAT, Start date 12/21/23 17:09:00 EDT, 12/21/23 17:09:00 EDT ondansetron, 4 mg = 2 mL, Injection, IV Push, Once, Stop date 12/21/23 17:09:00 EDT, STAT, Start date 12/21/23 17:09:00 EDT, 12/21/23 17:09:00 EDT Disposition Plan Patient Discharge Condition Stable Discharge Prescription List Prescriptions No active prescription medications Follow-up No qualifying data available Attestation I performed a substantive part of the MDM during the patient?s E/M visit. I personally evaluated and examined the patient. I personally made or approved the documented management plan and acknowledge its risk of complications. (Independent Interpretation) My (EKG/X-Ray/US/CT) interpretation as above. (Discussion) Management/test interpretation discussed with APC. Problem List/Past Medical History Ongoing Anxiety disorder due to medical condition Bipolar depression BMI 35.0-35.9,adult Crohn's disease Generalized anxiety disorder H/O psoriasis Mechanical deep vein thrombosis (DVT) prophylaxis in place Obesity due to excess calories Protein-calorie malnutrition, severe S/P ileostomy Sinus tachycardia Smoker Vitamin A deficiency Historical Fistula Panic attacks Vitamin D deficiency Procedure/Surgical History Colonoscopy (01/18/2023), Colonoscopy (2013), Esophagogastroduodenos copy, History of ileostomy. Medications Inpatient No active inpatient medications Home cyproheptadine metoclopramide 10 mg oral tablet, disintegrating, 10 mg= 1 tab(s), Oral, q6hr, PRN predniSONE 10 mg Tab, See Instructions promethazine 25 mg Tab, 25 mg= 1 tab(s), Oral, q6hr, PRN, Not taking: uses zofran now Reglan Venofer Vistaril 25 mg Tab, 1-2 tab(s), Oral, QID, PRN, Not taking Zofran 4 mg Tab Zofran 4 mg Tab, 4 mg= 1 tab(s), Oral, q8hr, PRN Zofran ODT 4 mg Tab-Dis, 4 mg= 1 tab(s), Oral, q8hr Zoloft Allergies No Known Allergies Social History Alcohol - Denies Alcohol Use, 04/27/2023 Current, Beer, Wine, 1-2 times per month, 01/09/2023 Employment/School Unemployed, 02/02/2015 Home/Environment Lives with Mother. Living situation: Home/Independent., 02/02/2015 Substance Abuse - Denies Substance Abuse, 03/20/2014 Current, 04/14/2019 Tobacco - Denies Tobacco Use, 01/09/2023 Former smoker, quit more than 30 days ago Tobacco Use:., 01/29/2023 Former smoker, quit more than 30 days ago Tobacco Use:. Never Smokeless Tobacco Use:. Cigarettes, 02/28/2021 Family History Diabetes mellitus type 2: Grandparent. Hodgkin's disease: Mother. Primary malignant neoplasm of female breast: Grandparent. Stroke: Grandparent. Lab Results WBC: 4.9 E9/L (12/21/23 15:37:00) RBC: 4.2 E12/L Low (12/21/23 15:37:00) HGB: 11.3 gm/dL Low (12/21/23 15:37:00) Hct: 34.7 % (12/21/23 15:37:00) MCV: 83.5 fL (12/21/23 15:37:00) MCH: 27.2 pg (12/21/23 15:37:00) MCHC: 32.6 gm/dL (12/21/23 15:37:00) RDW: 16.3 % High (12/21/23 15:37:00) Platelet: 341 E9/L (12/21/23 15:37:00) MPV: 7.6 fL (12/21/23 15:37:00) Neutro Auto: 69.7 % (12/21/23 15:37:00) Lymph Auto: 19.1 % (12/21/23 15:37:00) [place] Auto: 8.2 % (12/21/23 15:37: (more content not included)... Normal [facility] Comment on above: Result Comment: Elec tronically Signed By: Vanessa Rosa PA-C\.br\Date and Time Signed: 12/21/23 16:01 EDT\.br\Electronically Co-Signed By: Elliot Macias DO\.br\Date and Time Co-Signed: 12/21/23 19:03 EDT\.br\Electronically Co-Signed By: Alfred Graham DO\.br\Date and Time Co-Signed: 12/21/23 23:56 EDT\.br\Electronically Co-Signed By: Alfred Graham DO\.br\Date and Time Co-Signed: 12/26/23 02:06 EDT Coding Queryon 12-25-2023 Coding Query - From: Jania Dickinson To: Alfred Graham DO; Sent: 12/25/2023 12:30:54 EDT Subject: Coding Query (Template) CODING COMMUNICATION: __x__ Final diagnosis missing please document on Discharge Summary ____ Procedure information missing: ____ Please clarify type of organism associated with infection ____ Please complete ROS or HPI for ER documentation Please feel free to contact the coding department with any questions. Thank you! Nilay [facility] CT Abdomen/Pelvis w/ Contras ton 12-22-2023 CT Abdomen/Pelvis w/ Contrast Exam Date/Time: 12/21/2023 16:46 EDT Reason for Exam: Abdominal pain, acute, nonlocalized;Other (please specify) Report IMPRESSION: CONSTELLATION OF FINDINGS DESCRIBED SUGGESTIVE OF INTERVAL PROGRESSION OF INFLAMMATORY BOWEL DISEASE IN PATIENT WITH KNOWN CLINICAL HISTORY OF CROHN'S DISEASE. RIGHT LOWER QUADRANT OSTOMY WITH SMALL PARASTOMAL HERNIA, AND NO CT EVIDENCE OF INCARCERATION OR OBSTRUCTION. CT ABDOMEN PELVIS WITH INTRAVENOUS CONTRAST MEDIUM. History: Abdominal pain, acute, nonlocalized. Abdominal pain for one month. Decreased ostomy output for 3 days. Mucous drainage. Crohn's disease. Technical Factors: CT imaging of the abdomen and pelvis were obtained and formatted as 5 mm contiguous axial images from the domes of the diaphragm to the symphysis pubis. Sagittal and coronal reconstructions were also obtained. Oral contrast medium: None. Intravenous contrast medium: Isovue-300, 100 mL. Comparison: CT abdomen pelvis, December 07, 2023. Findings: Lower chest: Cardiac size normal. No pericardial effusion. No coronary artery calcification. Bases clear. Liver: Normal in size, shape, and attenuation. Bile Ducts: Normal in caliber. Gallbladder: No stones or wall thickening. Pancreas: Normal without masses, cysts, ductal dilatation or calcification. Spleen: Normal in size without masses or calcifications. No splenules. Kidneys: Normal in size and enhancement. No hydronephrosis, masses, or stones. Adrenals: Normal. Small bowel: Normal in caliber. Fluid-filled small bowel loops unchanged. Appendix: Normal. Report Colon: Normal in caliber. Interval development of normal caliber pericolonic fat stranding of sigmoid colon with small volume adjacent colonic fluid (series 2, image 72). Loss of posterior, with mild pericolonic fat stranding transverse colon again identified. Interval development of mild circumferential wall thickening, ascending colon with ascending colon fluid-filled. Peritoneum: No ascites, free air, or fluid collections. Vessels: Aorta normal in course and caliber. Portal vein, splenic vein, superior mesenteric vein are patent. Lymph nodes: Retroperitoneal: No enlarged retroperitoneal lymph nodes. Mesenteric: No enlarged mesenteric lymph nodes. Pelvic: No enlarged pelvic lymph nodes. Ureters: Normal in course and caliber. No calcifications. Bladder: No wall thickening. Reproductive organs: No pelvic masses. Abdominal Wall: Small bowel ostomy right lower quadrant containing fat, small bowel. No CT evidence of bowel dilatation, or fat stranding. No diastasis of rectus musculature. No edema or masses. Bones: No bone lesions. No degenerative changes. No post operative changes. All CT scans at this facility use dose modulation, iterative reconstruction, and/or weight based dosing when appropriate to reduce radiation dose to as low as reasonably achievable. Ordering Provider: Vanessa Rosa FINAL REPORT Dictated: 12/22/2023 10:32 am Anshul Cardoza MD Signed (Electronic Signature): 12/22/2023 10:32 am Signed by: Anshul Cardoza MD Transcribed by: DP Technologist: SRF Technical Comments GFR (mL/min/1/73m2) na/age Contrast: Isovue 300 Contrast amount in ml's: 100 Rectal Contrast Given? No Oral contrast amount in ml's: 0 Normal [facility] CBC w/ Auto Diffon 4 Basophils/100 WBC (Bld) 0.6 % Normal 0.0-2.0 [facility] Comment on above: Performed By: #### 1 [id number], [id number], 5171921, 8857721, 1491665, 7501846 ####[facility] [id number] [place] [address] Basophils/Leukocytes Auto (Bld) [Pure # fraction] 0.0 E9/L Normal 0.0-0.2 [facility] Comment on above: Performed By: #### 1 [id number], 3861736, 1870318, 6634322, 0152078, 2720237 ####[facility] [address] [place] [address] Eosinophils (Bld) [#/Vol] 0.1 E9/L Normal 0.0-0.5 [facility] Comment on above: Performed By: #### 1 [id number], 7026846, 9163827, 1874694, 8511460, 3764565 ####[place] [place] [address] Eosinophils/100 WBC (Bld) 2.4 % Normal 0.0-8.0 [facility] Comment on above: Performed By: #### 1 0689301, 7922900, 8181954, 0803974, 7717263, 6004498 ####[place] [address] [place] [address] Erythrocyte distribution width (RBC) [Ratio] 16.3 % High 10.9-14.2 [facility] Comment on above: Performed By: #### 1 [id number], 8734595, 0214845, 3842532, 0486774, 2677424 ####[address] [address] Hematocrit (Bld) [Volume fraction] 34.7 % Normal 34.0-46.0 [facility] Comment on above: Performed By: #### 1 6526497, 0337624, 1661328, 9304458, 6866969, 6728986 ####[address] [place] [address] Hemoglobin (Bld) [Mass/Vol] 11.3 g/dL Low 12.0-16.0 [facility] Comment on above: Performed By: #### 1 8467552, 8658760, 1485597, 0172627, 6519002, 4407328 ####[address] [place] [address] Lymphocytes (Bld) [#/Vol] 0.9 E9/L Low 1.0-4.0 [facility] Comment on above: Performed By: #### 1 2207654, 4360933, 6721192, 3426366, 7120341, 1659158 ####[place] [id number] Lymphocytes/100 WBC (Bld) 19.1 % Normal 14.0-50.0 [facility] Comment on above: Performed By: #### 1 9807897, 2052558, 9348714, 5864421, 2328767, 3853667 ####[address] [address] MCH (RBC) [Entitic mass] 27.2 pg Normal 27.0-34.0 [facility] Comment on above: Performed By: #### 1 1716996, 4501983, 5097845, 5691178, 4663429, 1982979 ####[place] [address] MCHC (RBC) [Mass/Vol] 32.6 g/dL Normal 31.4-36.0 [facility] Comment on above: Performed By: #### 1 4145398, 0336657, 6206184, 4431994, 5826938, 0702191 ####[place] [address] MCV (RBC) [Entitic vol] 83.5 fL Normal 80.0-100.0 [facility] Comment on above: Performed By: #### 1 7812375, 2634635, 5590391, 2322131, 6060270, 5555725 ####[place] [address] Monocytes (Bld) [#/Vol] 0.4 E9/L Normal 0.2-1.0 [facility] Comment on above: Performed By: #### 1 1317578, 3324342, 4086965, 9786562, 3000871, 6784975 ####[address] [address] Neutrophils (Bld) [#/Vol] 3.4 E9/L Normal 2.0-7.5 [facility] Comment on above: Performed By: #### 1 [id number], 7193295, 5921099, 6206839, 1697941, [id number] ####[facility] [address] [place] [address] Neutrophils/100 WBC (Bld) 69.7 % Normal 36.0-75.0 [facility] Comment on above: Performed By: #### 1 [id number], 6491181, 6560194, 7065716, 3315327, 4601616 ####[address] [place] [address] Platelet mean volume (Bld) [Entitic vol] 7.6 fL Normal 6.4-10.8 [facility] Comment on above: Performed By: #### 1 [id number], 8810375, 3714945, 8260883, 8646038, 0623634 ####[address] [address] Platelets (Bld) [#/Vol] 341.0 E9/L Normal 150.0-500.0 [facility] Comment on above: Performed By: #### 1 [id number], 0971006, 8061165, 3839692, 6617576, 3975611 ####[facility] [address] [place] [address] RBC (Bld) [#/Vol] 4.2 E12/L Low 4.3-5.9 [facility] Comment on above: Performed By: #### 1 [id number], 2840151, 9748491, 1931107, 4596989, 2316784 ####[address] [place] [address] WBC corrected for nucl RBC Auto (Bld) [#/Vol] 4.9 E9/L Normal 4.0-11.0 [facility] Comment on above: Performed By: #### 1 [id number], 9738675, 0356303, 1101347, 0505327, 4163766 ####[facility] [address] [place] [address] CHEMISTRYOrdered By: SYSTEM SYSTEM on 12-21-2023 Albumin [Mass/Vol] 4.2 g/dL Normal 3.3 - 5.0 gm/dL Remisol Chem Albumin/Globulin [Mass ratio] 1.0 {ratio} Low 1.1 - 2.2 Remisol Chem ALP [Catalytic activity/Vol] 69 [iU]/d Normal 21 - 98 Int._Unit/L Remisol Chem ALT No additional P-5'-P [Catalytic activity/Vol] 9 [iU]/d Normal 6 - 46 Int._Unit/L Remisol Chem Anion gap [Moles/Vol] 11 mmol/L Normal 6 - 16 mEq/L Remisol Chem AST [Catalytic activity/Vol] 10 [iU]/d Normal 5 - 43 Int._Unit/L Remisol Chem Bilirubin [Mass/Vol] 0.4 mg/dL Normal 0.0 - 1 .1 mg/dL Remisol Chem Calcium [Mass/Vol] 9.1 mg/dL Normal 8.9 - 11. 1 mg/dL Remisol Chem Chloride [Moles/Vol] 104 mmol/L Normal 101 - 1 11 mmol/L Remisol Chem CO2 [Moles/Vol] 29 mmol/L Normal 21 - 31 mmol/L Remis ol Chem Creatinine [Mass/Vol] 0.7 mg/dL Normal 0.5 - 1.3 mg/dL Remisol Chem eGFR 120 mL/min/1.73 m2 Normal >=59mL/mi n/1.7 3 m2 Remisol Chem Globulin (S) [Mass/Vol] 4.2 g/dL High 1.4 - 4.0 gm/dL Remisol Chem Glucose [Mass/Vol] 91 mg/dL Normal 55 - 199 mg/dL Re misol Chem Lactic Acid Lvl 0.4 mmol/L Low 0.5 - 2.2 mmol/L Remisol Chem Lipase [Catalytic activity/Vol] 57 U/L Normal 13 - 58 unit/L Remisol Chem Magnesium [Mass/Vol] 1.6 mg/dL Normal 1.3 - 2 .4 mg/dL Remisol Chem Potassium [Moles/Vol] 3.3 mmol/L Low 3.5 - 5.3 mmol/L Remisol Chem Protein [Mass/Vol] 8.4 g/dL High 6.0 - 7.8 gm/dL Remisol Chem Sodium [Moles/Vol] 141 mmol/L Normal 135 - 145 mmol/L Remisol Chem Urea nitrogen [Mass/Vol] 8 mg/dL Normal 5 - 21 mg/dL Remisol Chem Urea nitrogen/Creatinine [Mass ratio] 11 mg/mg Normal 10 - 20 Remisol Chem CMPon 12-21-2023 Albumin [Mass/Vol] 4.2 g/dL Normal 3.3-5.0 [facility] Comment on above: Performed By: #### 1 [id number] #### [facility] [address] [place] [address] Albumin/Globulin (S) [Mass conc ratio] 1.0 Low 1.1-2.2 [facility] Comment on above: Performed By: #### 1 [id number] #### [facility] [address] [place] [address] ALP [Catalytic activity/Vol] 69 Int._Unit/L Normal 21-98 [facility] Comment on above: Performed By: #### 1 [id number] #### [facility] [address] [place] [address] ALT No additional P-5'-P [Catalytic activity/Vol] 9 Int._Unit/L Normal 6-46 [facility] Comment on above: Performed By: #### 1 [id number] #### [facility] [address] [place] [address] Anion gap [Moles/Vol] 11 mmol/L Normal 6-16 [facility] Comment on above: Performed By: #### 1 [id number] #### [facility] [address] [place] [address] AST [Catalytic activity/Vol] 10 Int._Unit/L Normal 5-43 [facility] Comment on above: Performed By: #### 1 [id number] #### [facility] [address] [place] [address] Bilirubin [Mass/Vol] 0.4 mg/dL Normal 0.0-1.1 [facility] Comment on above: Performed By: #### 1 [id number] #### [facility] [address] [place] [address] Calcium [Mass/Vol] 9.1 mg/dL Normal 8.9-11.1 [facility] Comment on above: Performed By: #### 1 [id number] #### [facility] [address] [place] [address] Chloride [Moles/Vol] 104 mmol/L Normal 101-111 [facility] Comment on above: Performed By: #### 1 [id number] #### [facility] [address] [place] [address] CO2 [Moles/Vol] 29 mmol/L Normal 21-31 [facility] Comment on above: Performed By: #### 1 [id number] #### [facility] [address] [place] [address] Creatinine [Mass/Vol] 0.7 mg/dL Normal 0.5-1.3 [facility] Comment on above: Performed By: #### 1 [id number] #### [facility] [address] [place] [address] Globulin (S) [Mass/Vol] 4.2 g/dL High 1.4-4.0 [facility] Comment on above: Performed By: #### 1 [id number] #### [facility] [address] [place] [address] Glucose [Mass/Vol] 91 mg/dL Normal 55-199 [facility] Comment on above: Performed By: #### 1 [id number] #### [facility] [address] [place] [address] Potassium [Moles/Vol] 3.3 mmol/L Low 3.5-5.3 [facility] Comment on above: Performed By: #### 1 [id number] #### [facility] [address] [place] [address] Protein [Mass/Vol] 8.4 g/dL High 6.0-7.8 [facility] Comment on above: Performed By: #### 1 [id number] #### [facility] [address] [place] [address] Sodium [Moles/Vol] 141 mmol/L Normal 135-145 [facility] Comment on above: Performed By: #### 1 [id number] #### [facility] [address] [place] [address] Urea nitrogen [Mass/Vol] 8 mg/dL Normal 5- [facility] Comment on above: Performed By: #### 1 [id number] #### [facility] [address] [place] [address] Urea nitrogen/Creatinine [Mass ratio] 11 No Units Normal 10- [facility] Comment on above: Performed By: #### 1 [id number] #### [facility] [address] [place] [address] Consent for Treatmenton 11-23 Consent for Treatment [id number] 0TIFF Normal [facility] Discharge Instructionson Discharge Instructions [id number]. [id number] Normal [facility] ED Clinical Summaryon 2023 ED Clinical Summary [address] [address] ED Clinical Summary Person Information Name: ROLA AGUILAR [facility] Age: 28 Years : 1995 Sex: Female Language: Iraqi PCP: Kale RENDON MD Marital Status: Single Phone: [phone] Visit Id: Visit Reason: Ostomy evaluation; Nausea; Abdominal pain; CHRONS FLARE UP - ABD PAIN Speciality: Acuity: 3 Enc Type: Emergency Med Service: Emergency Arrival: 12/21/2023 14:42:51 Discharge: 12/21/2023 21:17:09 LOS: 000 06:35 Checkin: 12/21/2023 14:42:51 Checkout: 12/21/2023 21:17:09 Dispo Type: Home (Routine DC) EVENTS: Event Name Event Status Request Date/Time Start Date/Time Complete Date/Time Arrive Complete 12/21/2023 14:42:51 12/21/2023 14:42:51 12/21/2023 14:42:51 Document Home Meds Request 12/21/2023 14:42:51 Triage Complete 12/21/2023 14:42:51 12/21/2023 14:53:57 12/21/2023 14:53:57 Bed Assign Complete 12/21/2023 14:47:42 12/21/2023 14:47:42 12/21/2023 14:47:42 Dr Exam Complete 12/21/2023 14:47:42 12/21/2023 14:56:03 12/21/2023 14:56:03 RN Exam Complete 12/21/2023 14:47:42 12/21/2023 15:38:11 12/21/2023 15:38:11 Registration Complete 12/21/2023 14:54:35 12/21/2023 14:54:35 12/21/2023 14:54:35 Reg Complete Request 12/21/2023 14:54:35 Reg Bed Request Complete 12/21/2023 14:54:35 12/21/2023 14:54:35 12/21/2023 14:54:35 Registration Complete 12/21/2023 14:56:03 12/21/2023 14:57:25 12/21/2023 14:57:25 Dr Exam Complete 12/21/2023 14:56:10 12/21/2023 14:56:10 12/21/2023 14:56:10 Patient Care Complete 12/21/2023 14:58:30 12/21/2023 15:11:09 Pending Labs Complete 12/21/2023 14:58:30 12/21/2023 16:01:05 Lab Complete 12/21/2023 14:58:30 12/21/2023 16:01:05 CT Complete 12/21/2023 15:01:48 12/21/2023 16:29:59 12/21/2023 16:46:31 Pending Labs Complete 12/21/2023 15:42:41 12/21/2023 15:42:41 12/21/2023 16:01:05 Lab Complete 12/21/2023 15:42:41 12/21/2023 15:42:41 12/21/2023 16:01:05 Pending Labs Complete 12/21/2023 15:54:41 12/21/2023 15:54:41 12/21/2023 15:54:41 Meds Admin Complete 12/21/2023 17:09:17 12/21/2023 17:18:31 Dr Exam Complete 12/21/2023 19:00:37 12/21/2023 19:00:37 12/21/2023 19:00:37 Registration Request 12/21/2023 19:00:37 Meds Admin Complete 12/21/2023 20:16:46 12/21/2023 20:33:43 Discharge Complete 12/21/2023 21:05:14 12/21/2023 21:17:14 12/21/2023 21:17:14 Transfer Complete 12/21/2023 21:17:14 12/21/2023 21:17:14 12/21/2023 21:17:14 ADDRESS: [address] [place] [phone] PHYS DOC NOTES: MEDICAL INFORMATION: Prescriptions Given: New Medications [facility]/pharmacy #[id number], [address] [place], [place] [id number], [phone] oxycodone (oxyCODONE 5 mg Tab) 1 Tablets By Mouth every 6 hours as needed for pain for 3 Days. Refills: 0. Medications to Continue Taking That Have Changed [facility]/pharmacy #[id number], [address] [place], [place] [id number], [phone] START: ondansetron (Zofran ODT 4 mg Tab-Dis) 1 Tablets By Mouth every 8 hours. Refills: 0. START: predniSONE (predniSONE 10 mg Tab) 1 Dose Separtor By Mouth As Directed. Take 5 tabs by mouth daily x5 days, 4 daily x5 days, 3 daily x5 days, 2 daily x5 days, then 1 tab daily x5 days.. Refills: 0. Other Medications START: ondansetron (Zofran 4 mg Tab) 1 Tablets By Mouth every 8 hours as needed Nausea/Vomiting. Refills: 0. START: ondansetron (Zofran 4 mg Tab) START: ondansetron (Zofran ODT 4 mg Tab-Dis) 1 Tablets By Mouth every 8 hours. Refills: 0. START: predniSONE (predniSONE 10 mg Tab) 6 tabs for 2 days,5 tabs for 2 days,4 tabs for 2 days,3 tabs for 2 days,2 tabs for 2 days,1 tab for 2 days. Refills: 0. Medications to Continue with No Changes Other Medications cyproheptadine hydrOXYzine (Vistaril 25 mg Tab) 1-2 tab(s) By Mouth 4 times a day as needed as needed for anxiety. Refills: 0. iron sucrose (Venofer) metoclopramide (metoclopramide 10 mg oral tablet, disintegrating) 1 Tablets By Mouth every 6 hours as needed Nausea/Vomiting. Refills: 0. metoclopramide (Reglan) promethazine (promethazine 25 mg Tab) 1 Tablets By Mouth every 6 hours as needed as needed for nausea/vomiting. Refills: 0. sertraline (Zoloft) PATIENT EDUCATION INFORMATION: Instructions: Crohn's Disease Follow up: With: Address: When: Ja Hightower [facility], [address], [place] [phone] Business (1) In 3 days 12/24/2023 Comments: You can use the pain medication as prescribed as needed for pain, you can use the nausea medication as needed for nausea and vomiting. Take the steroids as prescribed to completed the course. Follow-up with your primary care doctor in addition to GI doctor for further evaluation management. Please return to ED for any new or worsening symptoms. With: Address: When: Kale RENDON [address] [place], [place] [id number] [employer] (1) In 3 days 12/24/2023 DIAGNOSIS: Acute Crohn's disease Normal [facility] ED Patient Education Noteon 12-21-2023 ED Patient Education Note Immunology Crohn's Disease Crohn's disease is a long-lasting (chronic) disease that affects the gastrointestinal (GI) tract. Crohn's disease often causes irritation and inflammation in the small intestine and the beginning of the large intestine, but it can affect any part of the GI tract. Crohn's disease is part of a group of illnesses that are known as inflammatory bowel disease (IBD). Crohn's disease may start slowly and get worse over time. Symptoms may come and go. They may also go away for months or even years at a time (remission). What are the causes? The exact cause of this condition is not known. It may involve a response that causes your body's disease-fighting system (immune system) to attack healthy cells and tissues (autoimmune response). Bacteria, genes, and your environment may also play a role. What increases the risk? The following factors may make you more likely to develop this condition: ? Having a family member who has Crohn's disease, another IBD, or an autoimmune condition. ? Using products that contain nicotine or tobacco, such as cigarettes and e-cigarettes. ? Being in your 20s. ? Having Eastern ancestry. What are the signs or symptoms? The main symptoms of this condition involve your GI tract. These include: ? Diarrhea. ? Pain or cramping in the abdomen commonly felt in the lower right side of the abdomen. ? Frequent watery or bloody stools. ? Constipation. This may mean having: ? Fewer bowel movements in a week than normal. ? Difficulty having a bowel movement. ? Stools that are dry, hard, or larger than normal. ? Rectal bleeding or pain. ? An urgent need to have a bowel movement. ? The feeling that you are not finished having a bowel movement. Other symptoms may include: ? Unexplained weight loss. ? Tiredness (fatigue). ? Fever. ? Nausea or appetite loss. ? Joint pain. ? Vision changes. ? Red bumps or sores on the skin. ? Sores inside the mouth. How is this diagnosed? This condition may be diagnosed based on: ? Your symptoms and medical history. ? A physical exam. ? Tests, which may include: ? Blood tests. ? Stool sample tests. ? Imaging tests, such as X-rays and CT scans. ? Tests to examine the inside of your intestines using a long, flexible tube that has a light and a camera on the end (colonoscopy). ? A procedure to remove tissue samples from inside your bowel for testing (biopsy). You may need to work with a health care provider who specializes in diseases of the digestive tract (clinical radiologist). How is this treated? There is no cure for this condition, and it affects each person differently. Treatment can help you manage your symptoms. Your treatment may include: ? Medicines. These may be used by themselves or with other treatments (combination therapy). You may be given medicines that help to: ? Reduce inflammation. ? Control your immune system activity. ? Fight infections. ? Relieve cramps and prevent diarrhea. ? Control your pain. ? Surgery. You may need surgery if: ? Medicines and other treatments are not working anymore. ? You develop complications from severe Crohn's disease. ? A section of your intestine becomes so damaged that it needs to be removed. ? Lifestyle changes: ? Maintaining eating or drinking restrictions. ? Reducing or eliminating use of alcohol or nicotine. Follow these instructions at home: Medicines ? Take srkw-qxj-dsgaihy and prescription medicines only as told by your health care provider. ? If you were prescribed an antibiotic, take it as told by your health care provider. Do not stop taking the antibiotic even if you start to feel better. ? Avoid taking ibuprofen or other NSAID medicines if possible. These can make Crohn's disease worse. Eating and drinking ? Talk with your health care provider or a registered dietitian about what diet is best for you. ? Drink enough fluid to keep your urine pale yellow. ? If you are taking steroids to reduce inflammation, get plenty of calcium in your diet to help keep your bones healthy. You may also consider taking a calcium supplement with vitamin D. ? Keep a food diary to identify foods that make your symptoms better or worse, and avoid foods that cause symptoms. ? Follow instructions from your health care provider about eating or drinking restrictions if you have worsening symptoms (flare-up). ? If you drink alcohol: ? Limit how much you have to: ? 0?1 drink a day for women who are not . ? 0?2 drinks a day for men. ? Know how much alcohol is in a drink. In the [place] one drink equals one 12 oz bottle of beer (355 mL), one 5 oz glass of wine (148 mL), or one 1? oz glass of hard liquor (44 mL). General instructions ? Make sure you get all the vaccines that your health care provider recommends, especially pneumonia (pneumococcal) and flu (influenza) vaccines. ? Do not use any products that contain jonny (more content not included)... Normal [facility] ED Patient Summaryon 024 ED Patient Summary [place] [id number] Patient Discharge Instructions Person Information Name: ROLA AGUILAR Age: 28 Years Arrival Date: 12/21/2023 14:42:51 Discharge Diagnosis: Acute Crohn's disease Primary Care Physician: MERVAT GILES, Kale Provider Information Primary Provider: Elliot Macias DO [employer]ting Machine Operator:None The exam and treatment you received in the Emergency Department were for an urgent problem and are not intended as complete care. It is important that you follow up with a doctor, nurse practitioner, or physician?s assistant professor surgical technology for ongoing care. If your symptoms become worse or you do not improve as expected and you are unable to reach your usual health care provider, you should return to the Emergency Department. We are available 24 hours a day. ROLA AGUILAR has been given the following list of patient education materials, prescriptions and follow-up instructions: Follow-up Instructions: With: Address: When: Ja Bhardwaj [address] [place] [address], [address], [place] [phone] [facility] (1) In 3 days 12/24/2023 Comments: You can use the pain medication as prescribed as needed for pain, you can use the nausea medication as needed for nausea and vomiting. Take the steroids as prescribed to completed the course. Follow-up with your primary care doctor in addition to GI doctor for further evaluation management. Please return to ED for any new or worsening symptoms. With: Address: When: Kale RENDON [facility] [address] [place] [phone] Business (1) In 3 days 12/24/2023 In the event that this physician does not participate in your insurance network, please consult with your insurance company to find a nearby participating provider. Patient Education Materials: Crohn's Disease A MESSAGE TO ALL PATIENTS REGARDING OPIOIDS PRESCRIPTION OPIOIDS: WHAT YOU NEED TO KNOW Prescription opioids can be used to help relieve nezjfzez-wd-mmmotg pain and are often prescribed following a surgery or injury, or for certain health conditions. These medications can be an important part of the treatment but also come with serious risks. It is important to work with your healthcare provider to make sure you are getting the safest, most effective care. WHAT ARE THE RISKS AND SIDE EFFECTS OF OPIOID USE? Prescription opioids carry serious risks of addiction and overdose, especially with prolonged use. An opioid overdose, often marked by slowed breathing, can cause sudden . The use of prescription opioids can have a number of side effects as well, even when taken as directed: ? Tolerance?meaning you might need to take more of the medication for the same pain relief ? Physical dependence?meaning you have symptoms of withdrawal when a medication is stopped ? Increased sensitivity to pain ? Constipation ? Nausea, vomiting, and dry mouth ? Sleepiness and dizziness ? Confusion ? Depression ? Low levels of testosterone that can result in lower sex drive, energy, and strength ? Itching and sweating RISKS ARE GREATER WITH: ? History of drug misuse, substance use disorder, or overdose ? Mental health conditions (such as depression or anxiety) ? Sleep apnea ? Older age (65 years and older) ? Avoid alcohol while taking prescription opioids. Also, unless specifically advised by your health care provider, medications to avoid include: ? Benzodiazepines (such as Xanax or Valium) ? Muscle relaxants (such as Soma or Flexeril) ? Hypnotics (such as Ambien or Lunesta) ? Other prescription opioids KNOW YOUR OPTIONS Talk to your health care provider about ways to manage your pain that don?t involve prescription opioids. Some of these options may actually work better and have fewer risks and side effects. Options may include: ? Pain relievers such as acetaminophen, ibuprofen, and naproxen ? Some medication that are also used for depression or seizures ? Physical therapy and exercise ? Cognitive behavioral therapy, a psychological, goal-directed approach, in which patients learn how to modify physical, behavioral, and emotional triggers of pain and stress. IF YOU ARE PRESCRIBED OPIOIDS FOR PAIN: ? Never take opioids in greater amounts or more often than prescribed. ? Follow up with your primary health care provider. o Work together to create a plan on how to manage your pain. o Talk about ways to help manage your pain that don?t involve prescription opioids. o Talk about any and all concerns and side effects. ? Help prevent misuse and abuse o Never sell or share prescription opioids. o Never use another person?s prescription opioids. ? Store prescription opioids in a secure place and out of reach of others (this may include visitors, children, friends, and family). ? Safely dispose of unused prescription opioi (more content not included)... [facility] HEMATOLOGYOrdered By: SYSTEM SYSTEM on 12-21-2023 Basophils/100 WBC (Bld) 0.6 % Normal 0.0 - 2.0 % Remisol Heme Basophils/Leukocytes Auto (Bld) [Pure # fraction] 0.0 E9/L Normal 0.0 - 0.2 E9/L Remisol Heme Eosinophils (Bld) [#/Vol] 0.1 E9/L Normal 0.0 - 0.5 E9/L Remisol Heme Eosinophils/100 WBC (Bld) 2.4 % Normal 0.0 - 8.0 % Remisol Heme Erythrocyte distribution width (RBC) [Ratio] 16.3 % High 10.9 - 14.2 % Remisol Heme Hematocrit (Bld) [Volume fraction] 34.7 % Normal 34.0 - 46.0 % Remisol Heme Hemoglobin (Bld) [Mass/Vol] 11.3 g/dL Low 12.0 - 16.0 gm/dL Remisol Heme Lymphocytes (Bld) [#/Vol] 0.9 E9/L Low 1.0 - 4.0 E9/L Remisol Heme Lymphocytes/100 WBC (Bld) 19.1 % Normal 14.0 - 50.0 % Remisol Heme MCH (RBC) [Entitic mass] 27.2 pg Normal 27.0 - 34.0 pg Remisol Heme MCHC (RBC) [Mass/Vol] 32.6 g/dL Normal 31.4 - 36.0 gm/dL Remisol Heme MCV (RBC) [Entitic vol] 83.5 fL Normal 80.0 - 100.0 fL Remisol Heme Monocytes (Bld) [#/Vol] 0.4 E9/L Normal 0.2 - 1.0 E9/L Remisol Heme Monocytes/100 WBC (Bld) 8.2 % Normal 4.0 - 14.0 % Remisol Heme Neutrophils (Bld) [#/Vol] 3.4 E9/L Normal 2.0 - 7.5 E9/L Remisol Heme Neutrophils/100 WBC (Bld) 69.7 % Normal 36.0 - 75.0 % Remisol Heme Platelet mean volume (Bld) [Entitic vol] 7.6 fL Normal 6.4 - 10.8 fL Remisol Heme Platelets (Bld) [#/Vol] 341.0 E9/L Normal 150.0 - 500.0 E9/L Remisol Heme RBC (Bld) [#/Vol] 4.2 E12/L Low 4.3 - 5.9 E12/L Remisol Heme WBC corrected for nucl RBC Auto (Bld) [#/Vol] 4.9 E9/L Normal 4.0 - 11.0 E9/L Remisol Heme Lactic Acidon 12-21-2023 Lactic Acid Lvl 0.4 mmol/L Low 0.5-2.2 [facility] Comment on above: Performed By: #### 1 [id number], [id number], [id number], [id number], [id number], [id number] ####[facility] [address] [place] [address] Lipase Levelon 12-21-2023 Lipase [Catalytic activity/Vol] 57 U/L Normal 13-58 [facility] Comment on above: Performed By: #### 1 [id number] #### [facility] [address] [place] [address] Magnesiumon 12-21-2023 Magnesium [Mass/Vol] 1.6 mg/dL Normal 1.3-2.4 [facility] Comment on above: Performed By: #### 1 [id number] #### [facility] [address] [place] [address] RAD - Preliminary Cat Scan R eporton 12-21-2023 RAD - Preliminary Cat Scan Report [id number]. [id number] Normal [facility] eGFRon 12-21-2023 eGFR 120 mL/min/1.73 m2 Normal >=59 [facility] Comment on above: Order Comment: Order added by Discern Expert. Performed By: #### 1 [id number] #### [facility] [address] [place] [address] CT Abdomen/Pelvis w/ Contras ton 12-08-2023 CT Abdomen/Pelvis w/ Contrast Exam Date/Time: 12/07/2023 20:13 EDT Reason for Exam: Abdominal pain, acute, nonlocalized;Other (please specify) Report IMPRESSION: There is an ostomy in the right of the abdomen which is similar in appearance to the prior study. There is a subcutaneous periosteal hernia containing at least 2 loops of bowel without evidence of obstruction. There is inflammation surrounding the nondistended transverse colon also similar to the prior study. Otherwise there are no acute intra-abdominal changes. There is fluid in the intracranial cavity which is within normal limits for the patient's age. There is a possible small collection, abscess, in the perineum with a curvilinear foreign body of uncertain etiology, recommend clinical correlation and direct inspection. EXAMINATION: CT Abdomen/Pelvis w/ Contrast HISTORY: Abdominal pain, acute, nonlocalized TECHNIQUE: Contiguous axial CT sections of the abdomen and pelvis were obtained after IV contrast administration of 100 mL of Iopamidol, Isovue-300. Sagittal and coronal reformats have been obtained. All CT scans at this facility use dose modulation, iterative reconstruction, and/or weight based dosing when appropriate to reduce radiation dose to as low as reasonably achievable. COMPARISON: CT abdomen pelvis from 01/25/2023 FINDINGS Lung bases:Visualized lung bases show no significant pathology Liver: The liver is normal in size and enhancement. There are no focal solid or cystic lesions. There is no intra or extrahepatic bile duct dilatation. Gallbladder: No calcified gallstones. Normal gallbladder wall. No pericholecystic fluid. Spleen: There are no focal lesions or calcifications in the spleen. There is no splenomegaly Pancreas: The pancreas is normal in size and attenuation without focal lesions or dilatation of the pancreatic duct. Adrenal glands are negative. Report Kidneys: There are no solid renal lesions. There are prompt bilateral nephrograms after IV contrast administration with prompt excretion into nondilated collecting systems. There is no hydroureter. Bowel: There is an ostomy in the right side of the abdomen with subcutaneous periosteal hernia measuring 5.5 cm. At least 2 loops of bowel contained within the hernia. There is no evidence of obstruction. There is inflammation surrounding the decompressed transverse colon similar to the prior study. The descending colon is decompressed. There is no CT evidence of appendicitis. Nodes: No lymphadenopathy. Aorta: There is no abdominal aortic aneurysm. Peritoneum: No free fluid or free air. Pelvis: There is fluid in endometrial cavity and there is a 2.1 cm cyst in the left ovary which is within normal limits for patient's age. The urinary bladder is within normal limits. Abdominal wall: The abdominal wall is intact. Bones :There are no acute osseous changes. Soft tissues: There is a curvilinear foreign body in the region of the perineum posterior to the rectum as well as a small, 2.5 cm possible collection, abscess. Ordering Provider: Alex Sanchez FINAL REPORT Dictated: 12/08/2023 8:58 am Jama Dueñas MD, V. Signed (Electronic Signature): 12/08/2023 8:58 am Signed by: Jama Dueñas MD, V. Transcribed by: CLARICE Technologist: JEREMIAS Technical Comments GFR (mL/min/1/73m2) n/a-age Contrast: Isovue 300 Contrast amount in ml's: 100 Normal [facility] Discharge Instructionson Discharge Instructions [id number]. [id number] Normal [facility] ED Clinical Summaryon 2023 ED Clinical Summary [place] [address] ED Clinical Summary Person Information Name: ROLA AGUILAR [facility] Age: 28 Years : 1995 Sex: Female Language: Iraqi PCP: Kale RENDON MD Marital Status: Single Phone: [phone] Visit Id: Visit Reason: Blood in stool; Diarrhea; Abdominal pain; CHRONS FLARE UP Speciality: Acuity: 3 Enc Type: Emergency Med Service: Emergency Arrival: 12/07/2023 18:41:54 Discharge: 12/08/2023 00:09:45 LOS: 000 05:28 Checkin: 12/07/2023 18:41:54 Checkout: 12/08/2023 00:09:45 Dispo Type: Home (Routine DC) EVENTS: Event Name Event Status Request Date/Time Start Date/Time Complete Date/Time Arrive Complete 12/07/2023 18:41:54 12/07/2023 18:41:54 12/07/2023 18:41:54 Document Home Meds Request 12/07/2023 18:41:54 Triage Complete 12/07/2023 18:41:54 12/07/2023 18:59:51 12/07/2023 18:59:51 Bed Assign Complete 12/07/2023 18:53:54 12/07/2023 18:53:54 12/07/2023 18:53:54 Dr Exam Complete 12/07/2023 18:53:54 12/07/2023 18:55:30 12/07/2023 18:55:30 RN Exam Complete 12/07/2023 18:53:54 12/07/2023 19:40:50 12/07/2023 19:40:50 Registration Complete 12/07/2023 18:55:30 12/07/2023 19:05:19 12/07/2023 19:05:19 Meds Admin Complete 12/07/2023 18:56:10 12/07/2023 19:35:44 Pending Labs Complete 12/07/2023 18:56:10 12/07/2023 21:44:23 Lab Complete 12/07/2023 18:56:10 12/07/2023 21:44:23 Urine Collect Complete 12/07/2023 18:56:10 12/07/2023 21:44:23 Patient Care Request 12/07/2023 18:56:10 Reg Complete Request 12/07/2023 19:05:19 Reg Bed Request Complete 12/07/2023 19:05:19 12/07/2023 19:05:19 12/07/2023 19:05:19 Meds Admin Complete 12/07/2023 19:24:07 12/07/2023 19:35:45 CT Complete 12/07/2023 19:24:07 12/07/2023 19:56:13 12/07/2023 20:13:09 Pending Labs Complete 12/07/2023 19:26:42 12/07/2023 19:26:42 12/07/2023 19:53:01 Lab Complete 12/07/2023 19:26:42 12/07/2023 19:26:42 12/07/2023 19:53:01 Meds Admin Complete 12/07/2023 23:28:42 12/08/2023 00:05:04 Discharge Complete 12/07/2023 23:30:21 12/08/2023 00:09:54 12/08/2023 00:09:54 Transfer Complete 12/08/2023 00:09:54 12/08/2023 00:09:54 12/08/2023 00:09:54 ADDRESS: [address] [phone] PHYS DOC NOTES: MEDICAL INFORMATION: Prescriptions Given: New Medications [facility]/pharmacy #[id number], [address], [place] [id number], [phone] predniSONE (predniSONE 10 mg Tab) 6 tabs for 2 days,5 tabs for 2 days,4 tabs for 2 days,3 tabs for 2 days,2 tabs for 2 days,1 tab for 2 days. Refills: 0. Medications to Continue with No Changes Other Medications cyproheptadine hydrOXYzine (Vistaril 25 mg Tab) 1-2 tab(s) By Mouth 4 times a day as needed as needed for anxiety. Refills: 0. iron sucrose (Venofer) metoclopramide (metoclopramide 10 mg oral tablet, disintegrating) 1 Tablets By Mouth every 6 hours as needed Nausea/Vomiting. Refills: 0. metoclopramide (Reglan) ondansetron (Zofran 4 mg Tab) ondansetron (Zofran 4 mg Tab) 1 Tablets By Mouth every 8 hours as needed Nausea/Vomiting. Refills: 0. ondansetron (Zofran ODT 4 mg Tab-Dis) 1 Tablets By Mouth every 8 hours. Refills: 0. promethazine (promethazine 25 mg Tab) 1 Tablets By Mouth every 6 hours as needed as needed for nausea/vomiting. Refills: 0. sertraline (Zoloft) PATIENT EDUCATION INFORMATION: Instructions: Crohn's Disease Follow up: With: Address: When: [place] [address] [place] [address] Business (1) In 3 days DIAGNOSIS: Exacerbation of Crohn's disease; Hypokalemia Normal [facility] ED Patient Education Noteon 12-08-2023 ED Patient Education Note Immunology Crohn's Disease Crohn's disease is a long-lasting (chronic) disease that affects the gastrointestinal (GI) tract. Crohn's disease often causes irritation and inflammation in the small intestine and the beginning of the large intestine, but it can affect any part of the GI tract. Crohn's disease is part of a group of illnesses that are known as inflammatory bowel disease (IBD). Crohn's disease may start slowly and get worse over time. Symptoms may come and go. They may also go away for months or even years at a time (remission). What are the causes? The exact cause of this condition is not known. It may involve a response that causes your body's disease-fighting system (immune system) to attack healthy cells and tissues (autoimmune response). Bacteria, genes, and your environment may also play a role. What increases the risk? The following factors may make you more likely to develop this condition: ? Having a family member who has Crohn's disease, another IBD, or an autoimmune condition. ? Using products that contain nicotine or tobacco, such as cigarettes and e-cigarettes. ? Being in your 20s. ? Having Eastern ancestry. What are the signs or symptoms? The main symptoms of this condition involve your GI tract. These include: ? Diarrhea. ? Pain or cramping in the abdomen commonly felt in the lower right side of the abdomen. ? Frequent watery or bloody stools. ? Constipation. This may mean having: ? Fewer bowel movements in a week than normal. ? Difficulty having a bowel movement. ? Stools that are dry, hard, or larger than normal. ? Rectal bleeding or pain. ? An urgent need to have a bowel movement. ? The feeling that you are not finished having a bowel movement. Other symptoms may include: ? Unexplained weight loss. ? Tiredness (fatigue). ? Fever. ? Nausea or appetite loss. ? Joint pain. ? Vision changes. ? Red bumps or sores on the skin. ? Sores inside the mouth. How is this diagnosed? This condition may be diagnosed based on: ? Your symptoms and medical history. ? A physical exam. ? Tests, which may include: ? Blood tests. ? Stool sample tests. ? Imaging tests, such as X-rays and CT scans. ? Tests to examine the inside of your intestines using a long, flexible tube that has a light and a camera on the end (colonoscopy). ? A procedure to remove tissue samples from inside your bowel for testing (biopsy). You may need to work with a health care provider who specializes in diseases of the digestive tract (clinical radiologist). How is this treated? There is no cure for this condition, and it affects each person differently. Treatment can help you manage your symptoms. Your treatment may include: ? Medicines. These may be used by themselves or with other treatments (combination therapy). You may be given medicines that help to: ? Reduce inflammation. ? Control your immune system activity. ? Fight infections. ? Relieve cramps and prevent diarrhea. ? Control your pain. ? Surgery. You may need surgery if: ? Medicines and other treatments are not working anymore. ? You develop complications from severe Crohn's disease. ? A section of your intestine becomes so damaged that it needs to be removed. ? Lifestyle changes: ? Maintaining eating or drinking restrictions. ? Reducing or eliminating use of alcohol or nicotine. Follow these instructions at home: Medicines ? Take hnhh-lhr-pnahijd and prescription medicines only as told by your health care provider. ? If you were prescribed an antibiotic, take it as told by your health care provider. Do not stop taking the antibiotic even if you start to feel better. ? Avoid taking ibuprofen or other NSAID medicines if possible. These can make Crohn's disease worse. Eating and drinking ? Talk with your health care provider or a registered dietitian about what diet is best for you. ? Drink enough fluid to keep your urine pale yellow. ? If you are taking steroids to reduce inflammation, get plenty of calcium in your diet to help keep your bones healthy. You may also consider taking a calcium supplement with vitamin D. ? Keep a food diary to identify foods that make your symptoms better or worse, and avoid foods that cause symptoms. ? Follow instructions from your health care provider about eating or drinking restrictions if you have worsening symptoms (flare-up). ? If you drink alcohol: ? Limit how much you have to: ? 0?1 drink a day for women who are not . ? 0?2 drinks a day for men. ? Know how much alcohol is in a drink. In the [place] one drink equals one 12 oz bottle of beer (355 mL), one 5 oz glass of wine (148 mL), or one 1? oz glass of hard liquor (44 mL). General instructions ? Make sure you get all the vaccines that your health care provider recommends, especially pneumonia (pneumococcal) and flu (influenza) vaccines. ? Do not use any products that contain jonny (more content not included)... Normal [facility] ED Patient Summaryon 024 ED Patient Summary [address] [address] Patient Discharge Instructions Person Information Name: ROLA AGUILAR Age: 28 Years Arrival Date: 12/07/2023 18:41:54 Discharge Diagnosis: Exacerbation of Crohn's disease; Hypokalemia Primary Care Physician: Kale RENDON MD Provider Information Primary Provider: Alex Sanchez DO Advanced [employer] Cutting Machine Operator:None The exam and treatment you received in the Emergency Department were for an urgent problem and are not intended as complete care. It is important that you follow up with a doctor, nurse practitioner, or physician?s assistant professor surgical technology for ongoing care. If your symptoms become worse or you do not improve as expected and you are unable to reach your usual health care provider, you should return to the Emergency Department. We are available 24 hours a day. ROLA AGUILAR has been given the following list of patient education materials, prescriptions and follow-up instructions: Follow-up Instructions: With: Address: When: Kale RENDON [facility] [place] [address] Business (1) In 3 days In the event that this physician does not participate in your insurance network, please consult with your insurance company to find a nearby participating provider. Patient Education Materials: Crohn's Disease A MESSAGE TO ALL PATIENTS REGARDING OPIOIDS PRESCRIPTION OPIOIDS: WHAT YOU NEED TO KNOW Prescription opioids can be used to help relieve npgzzjqs-wn-uhrduu pain and are often prescribed following a surgery or injury, or for certain health conditions. These medications can be an important part of the treatment but also come with serious risks. It is important to work with your healthcare provider to make sure you are getting the safest, most effective care. WHAT ARE THE RISKS AND SIDE EFFECTS OF OPIOID USE? Prescription opioids carry serious risks of addiction and overdose, especially with prolonged use. An opioid overdose, often marked by slowed breathing, can cause sudden . The use of prescription opioids can have a number of side effects as well, even when taken as directed: ? Tolerance?meaning you might need to take more of the medication for the same pain relief ? Physical dependence?meaning you have symptoms of withdrawal when a medication is stopped ? Increased sensitivity to pain ? Constipation ? Nausea, vomiting, and dry mouth ? Sleepiness and dizziness ? Confusion ? Depression ? Low levels of testosterone that can result in lower sex drive, energy, and strength ? Itching and sweating RISKS ARE GREATER WITH: ? History of drug misuse, substance use disorder, or overdose ? Mental health conditions (such as depression or anxiety) ? Sleep apnea ? Older age (65 years and older) ? Avoid alcohol while taking prescription opioids. Also, unless specifically advised by your health care provider, medications to avoid include: ? Benzodiazepines (such as Xanax or Valium) ? Muscle relaxants (such as Soma or Flexeril) ? Hypnotics (such as Ambien or Lunesta) ? Other prescription opioids KNOW YOUR OPTIONS Talk to your health care provider about ways to manage your pain that don?t involve prescription opioids. Some of these options may actually work better and have fewer risks and side effects. Options may include: ? Pain relievers such as acetaminophen, ibuprofen, and naproxen ? Some medication that are also used for depression or seizures ? Physical therapy and exercise ? Cognitive behavioral therapy, a psychological, goal-directed approach, in which patients learn how to modify physical, behavioral, and emotional triggers of pain and stress. IF YOU ARE PRESCRIBED OPIOIDS FOR PAIN: ? Never take opioids in greater amounts or more often than prescribed. ? Follow up with your primary health care provider. o Work together to create a plan on how to manage your pain. o Talk about ways to help manage your pain that don?t involve prescription opioids. o Talk about any and all concerns and side effects. ? Help prevent misuse and abuse o Never sell or share prescription opioids. o Never use another person?s prescription opioids. ? Store prescription opioids in a secure place and out of reach of others (this may include visitors, children, friends, and family). ? Safely dispose of unused prescription opioids: Find your community drug take-back program or your pharmacy mail-back program, or flush them down the toilet, following guidance from the Food and Drug Administration (www.fda.gov/Drugs/Res ourcesForYou). ? Visit www.cdc.gov/drugoverdo se to learn about the risks of opioids abuse and overdose. ? If you believe you may be struggling with addiction, tell your health resident care technician and ask for guidance or call [facility]S National Helpline at 8-137-809-YOUF. w Source: Critical access hospital (more content not included)... Normal [facility] RAD - Preliminary Cat Scan R eporton 12-08-2023 RAD - Preliminary Cat Scan Report [id number]. [id number] Normal [facility] B hCG Qualon 12-07-2023 Beta HCG ( test) Ql Negative Normal [facility] Comment on above: Performed By: #### 2 621527, 3154077, 6508977, 3277653, 0936815, 10112076 #### [facility] [address] [place] [address] BMPon 12-07-2023 Anion gap [Moles/Vol] 11 mmol/L Normal 6-16 [facility] Comment on above: Performed By: #### 2 065772, 4951974, 7220542, 1197310, 4378484, 04970627 #### [facility] [address] [place] [address] Calcium [Mass/Vol] 8.4 mg/dL Low 8.9-11.1 [facility] Comment on above: Performed By: #### 2 291945, 5727508, 5369335, 3901044, 2979295, 15478874 #### [facility] [address] [place] [address] Chloride [Moles/Vol] 104 mmol/L Normal 101-111 [facility] Comment on above: Performed By: #### 2 115084, 9182768, 6841471, 3635505, 8796742, 89913641 #### [facility] [address] [place] [address] CO2 [Moles/Vol] 28 mmol/L Normal 21-31 [facility] Comment on above: Performed By: #### 2 263214, 2029373, 2913080, 3585986, 1662474, 12828668 #### [facility] [address] [place] [address] Creatinine [Mass/Vol] 0.8 mg/dL Normal 0.5-1.3 [facility] Comment on above: Performed By: #### 2 133329, 6265833, 8210144, 6672052, 6050481, 31985093 #### [facility] [address] [place] [address] Glucose [Mass/Vol] 83 mg/dL Normal 55-199 [facility] Comment on above: Performed By: #### 2 958255, 2179349, 5263870, 5641649, 8569619, 76182170 #### [facility] [address] [place] [address] Potassium [Moles/Vol] 3.2 mmol/L Low 3.5-5.3 [facility] Comment on above: Performed By: #### 2 293024, 7510694, 0255711, 1321306, 7680594, 48366854 #### [facility] [address] [place] [address] Sodium [Moles/Vol] 140 mmol/L Normal 135-145 [facility] Comment on above: Performed By: #### 2 674676, 7610466, 4848581, 6538528, 2518936, 38031006 #### [facility] [address] [place] [address] Urea nitrogen [Mass/Vol] 8 mg/dL Normal 5-21 [facility] Comment on above: Performed By: #### 2 460731, 7162075, 9531996, 0578000, 0539330, 67192374 #### [facility] [address] [place] [address] Urea nitrogen/Creatinine [Mass ratio] 10 No Units Normal 10-20 [facility] Comment on above: Performed By: #### 2 028023, 4073272, 4043445, 2621513, 1119639, 05264877 #### [facility] [address] [place] [address] CBC w/ Auto Diffon 4 Basophils/100 WBC (Bld) 0.4 % Normal 0.0-2.0 [facility] Comment on above: Performed By: #### 2 086570, 5053303, 7226168, 8624148, 8716649, 45295477 #### [facility] [address] [place] [address] Basophils/Leukocytes Auto (Bld) [Pure # fraction] 0.0 E9/L Normal 0.0-0.2 [facility] Comment on above: Performed By: #### 2 573576, 0104389, 3417856, 4898520, 6318038, 40802147 #### [facility] [address] [place] [address] Eosinophils (Bld) [#/Vol] 0.2 E9/L Normal 0.0-0.5 [facility] Comment on above: Performed By: #### 2 061509, 5336165, 7586678, 8987787, 9221048, 57979249 #### [facility] [address] [place] [address] Eosinophils/100 WBC (Bld) 3.6 % Normal 0.0-8.0 [facility] Comment on above: Performed By: #### 2 385245, 9641996, 8785072, 8462942, 2639882, 55712040 #### [facility] [address] [place] [address] Erythrocyte distribution width (RBC) [Ratio] 17.0 % High 10.9-14.2 [facility] Comment on above: Performed By: #### 2 951407, 6451682, 1154720, 1832559, 2932748, 38604561 #### [facility] [address] [place] [address] Hematocrit (Bld) [Volume fraction] 33.4 % Low 34.0-46.0 [facility] Comment on above: Performed By: #### 2 210125, 1726229, 6961149, 7069218, 6333561, 21893304 #### [facility] [address] [place] [address] Hemoglobin (Bld) [Mass/Vol] 11.0 g/dL Low 12.0-16.0 [facility] Comment on above: Performed By: #### 2 363728, 1287806, 3229982, 3065420, 5252430, 86568591 #### [facility] [address] [place] [address] Lymphocytes (Bld) [#/Vol] 0.8 E9/L Low 1.0-4.0 [facility] Comment on above: Performed By: #### 2 386874, 2136002, 0254658, 1640576, 7104127, 72374944 #### [facility] [address] [place] [address] Lymphocytes/100 WBC (Bld) 14.9 % Normal 14.0-50.0 [facility] Comment on above: Performed By: #### 2 180973, 3704760, 0651830, 7869926, 7092118, 06796886 #### [facility] [address] [place] [address] MCH (RBC) [Entitic mass] 27.6 pg Normal 27.0-34.0 [facility] Comment on above: Performed By: #### 2 030558, 3106376, 8955414, 4131156, 4732393, 65669489 #### [facility] [address] [place] [address] MCHC (RBC) [Mass/Vol] 32.9 g/dL Normal 31.4-36.0 [facility] Comment on above: Performed By: #### 2 433033, 7029410, 3489655, 7166315, 5570415, 39230224 #### [facility] [address] [place] [address] MCV (RBC) [Entitic vol] 83.9 fL Normal 80.0-100.0 [facility] Comment on above: Performed By: #### 2 235265, 7294624, 6900161, 9512065, 4993239, 20722931 #### [facility] [address] [place] [address] Monocytes (Bld) [#/Vol] 0.5 E9/L Normal 0.2-1.0 [facility] Comment on above: Performed By: #### 2 990200, 5838456, 6787424, 1260418, 7326349, 03913864 #### [facility] [address] [place] [address] Neutrophils (Bld) [#/Vol] 4.0 E9/L Normal 2.0-7.5 [facility] Comment on above: Performed By: #### 2 734255, 8176373, 0097238, 5306637, 2953856, 07931728 #### [facility] [address] [place] [address] Neutrophils/100 WBC (Bld) 71.8 % Normal 36.0-75.0 [facility] Comment on above: Performed By: #### 2 077376, 3282170, 8026816, 3784421, 2986973, 94496485 #### [facility] [address] [place] [address] Platelet 337.0 E9/L Normal 150.0-500.0 [facility] Comment on above: Performed By: #### 2 586654, 9212912, 9621000, 5124008, 8348215, 58839405 #### [facility] [address] [place] [address] Platelet mean volume (Bld) [Entitic vol] 7.4 fL Normal 6.4-10.8 [facility] Comment on above: Performed By: #### 2 354613, 8912475, 9196811, 3738646, 7193213, 79885376 #### [facility] [address] [place] [address] RBC (Bld) [#/Vol] 4.0 E12/L Low 4.3-5.9 [facility] Comment on above: Performed By: #### 2 393913, 0776844, 5903568, 6373344, 2003602, 55290746 #### [facility] [address] [place] [address] WBC corrected for nucl RBC Auto (Bld) [#/Vol] 5.6 E9/L Normal 4.0-11.0 [facility] Comment on above: Performed By: #### 2 508078, 8245042, 3482835, 3367645, 3655638, 30563950 #### [facility] [address] [place] [address] CHEMISTRYOrdered By: SYSTEM SYSTEM on 12-07-2023 Albumin [Mass/Vol] 3.9 g/dL Normal 3.3 - 5.0 gm/dL Remisol Chem Albumin/Globulin [Mass ratio] 1.2 {ratio} Normal 1.1 - 2.2 Remisol Chem ALP [Catalytic activity/Vol] 68 [iU]/d Normal 21 - 98 Int._Unit/L Remisol Chem ALT No additional P-5'-P [Catalytic activity/Vol] 10 [iU]/d Normal 6 - 46 Int._Unit/L Remisol Chem Anion gap [Moles/Vol] 11 mmol/L Normal 6 - 16 mEq/L Remisol Chem AST [Catalytic activity/Vol] 11 [iU]/d Normal 5 - 43 Int._Unit/L Remisol Chem Bilirubin [Mass/Vol] 0.4 mg/dL Normal 0.0 - 1 .1 mg/dL Remisol Chem Bilirubin.direct [Mass/Vol] 0.1 mg/dL Normal 0.0 - 0.4 mg/dL Remisol Chem Bilirubin.indirect [Mass or moles/Vol] 0.3 mg/dL Normal 0.1 - 0.9 mg/dL Remisol Chem Calcium [Mass/Vol] 8.4 mg/dL Low 8.9 - 11. 1 mg/dL Remisol Chem Chloride [Moles/Vol] 104 mmol/L Normal 101 - 1 11 mmol/L Remisol Chem CO2 [Moles/Vol] 28 mmol/L Normal 21 - 31 mmol/L Remis ol Chem Creatinine [Mass/Vol] 0.8 mg/dL Normal 0.5 - 1.3 mg/dL Remisol Chem eGFR 103 mL/min/1.73 m2 Normal >=59mL/mi n/1.7 3 m2 Remisol Chem Globulin (S) [Mass/Vol] 3.3 g/dL Normal 1.4 - 4.0 gm/dL Remisol Chem Glucose [Mass/Vol] 83 mg/dL Normal 55 - 199 mg/dL Re misol Chem Lipase [Catalytic activity/Vol] 66 U/L High 13 - 58 unit/L Remisol Chem Potassium [Moles/Vol] 3.2 mmol/L Low 3.5 - 5.3 mmol/L Remisol Chem Protein [Mass/Vol] 7.2 g/dL Normal 6.0 - 7.8 gm/dL Remisol Chem Sodium [Moles/Vol] 140 mmol/L Normal 135 - 145 mmol/L Remisol Chem Urea nitrogen [Mass/Vol] 8 mg/dL Normal 5 - 21 mg/dL Remisol Chem Urea nitrogen/Creatinine [Mass ratio] 10 mg/mg Normal 10 - 20 Remisol Chem Consent for Treatmenton 11-21 Consent for Treatment [id number]#[id number] [id number] Normal [facility] ED Note-Physicianon 12-07-19 ED Note-Physician Basic Information Time Seen: Alex Sanchze DO. 12/07/2023 18:55 Chief Complaint Pt is 6 weeks . Has crohn's. States having lower abdominal pain, cramping. Noticed some blood. Ostomy also filling up more and is going rectally as well. Denies vomiting. Thought pain was from , but states pain is just getting worse. History of Present Illness HPI: Patient is a 28-year-old female with past medical history of anxiety, bipolar, Crohn's, presents the ED for abdominal pain, chills, lightheadedness. Patient states that for the past week she has been having increasing abdominal cramping pains. She states that she is having increased loose stools both of her loop diverting ileostomy as well as rectally. She states that the only thing that seems to make the pain any better is when she has a rectal bowel movement but as soon as she stands back up the pain returns. She is having chills but has not had any fever she is aware of. She denies any urinary symptoms. She states that she is 6 weeks from a and at first her FORGE HELPER told her that it should be getting better but the pain is only getting worse. She says she follows with [facility] for gastroenterology but was recently told she was being referred to a different practitioner but they wanted to wait until she was 3 months . ROS: Pertinent review of systems conducted and is negative except as noted above. Physical exam: General: nontoxic appearing and in no distress HEENT: Mucous membranes moist Neuro: awake and alert Neck: supple, trachea midline Card: Heart regular rate and rhythm no murmur Resp: Lungs clear to auscultation no wheeze or rhonchi Abd: Soft and nondistended. Periumbilical as well as bilateral lower quadrant tenderness without rebound or guarding. Ileostomy in place. Ext: No gross deformity or edema Physical Exam Vitals & Measurements T: 37.2 ?C(Oral) HR: 102(Peripheral) RR: 16 BP: 127/89 SpO2: 97% HT: 167 cm WT: 84.9 kg BMI: 30.44 Medical Decision Making MEDICAL DECISION MAKING Number and Complexity of Problems Differential Diagnosis: [] [facility] Data External documents reviewed: N/A My EKG interpretation: Noted in chart if applicable My CT interpretation: N/A My X-ray interpretation: Noted in chart if applicable My Ultrasound interpretation: N/A Decision rules/scores evaluated: N/A Discussed with: N/A Treatment and Disposition ED Course: She is nontoxic-appearing in no distress. She is nonperitoneal but does have tenderness. CT of the abdomen pelvis was obtained as well as blood work and urinalysis. Workup shows a mild hypokalemia of 3.2. CT of the abdomen pelvis shows no evidence of obstruction. Colon is underdistended and likely mildly thickened from inflammation due to active Crohn's disease. No abscess. These findings the patient at bedside. Will give her oral potassium replacement here in the ED. She states that she is usually treated for flareups with a taper dose of prednisone so we will start her on 1 here in the ED. We discussed need for close follow-up with her primary care physician. Discussed return precautions. Patient states understanding agreement this plan was discharged stable condition. Shared decision making: As above Code status: N/A Assessment/Plan Exacerbation of Crohn's disease (K50.90: Crohn's disease, unspecified, without complications) Hypokalemia (E87.6: Hypokalemia) Orders: morphine, 4 mg = 1 mL, Injection, IV Push, Once, Stop date 12/07/23 19:23:00 EDT, STAT, Start date 12/07/23 19:23:00 EDT, 12/07/23 19:23:00 EDT ondansetron, 4 mg = 2 mL, Injection, IV Push, Once, Stop date 12/07/23 19:23:00 EDT, STAT, Start date 12/07/23 19:23:00 EDT, 12/07/23 19:23:00 EDT potassium chloride, 40 mEq = 2 tab(s), Tab-ER, Oral, Once, Stop date 12/07/23 23:28:00 EDT, STAT, Start date 12/07/23 23:28:00 EDT, 12/07/23 23:28:00 EDT predniSONE, 40 mg = 2 tab(s), Tab, Oral, Once, Stop date 12/07/23 23:28:00 EDT, STAT, Start date 12/07/23 23:28:00 EDT, 12/07/23 23:28:00 EDT predniSONE, See Instructions, 6 tabs for 2 days,5 tabs for 2 days,4 tabs for 2 days,3 tabs for 2 days,2 tabs for 2 days,1 tab for 2 days, # 42 tab(s), Refills(s) 0, Pharmacy: [facility]/pharmacy #[id number], 167, cm, 12/07/23 18:59:00 EDT, Height/Length Dosing, 84.9, kg, 11/21... Sodium Chloride 0.9% intravenous solution, 1,000 mL, Soln-IV, IV, Once, Stop date 12/07/23 18:55:00 EDT, STAT, Start date 12/07/23 18:55:00 EDT, Infuse over 61, minute(s) Basic Metabolic Panel Beta hCG Qual CBC w/ Auto Diff CT Abdomen/Pelvis w/ Contrast eGFR Hepatic Function Panel Lipase Level Saline Lock Insert UA With Cult Reflex Medications Administered Given morphine 4 mg/mL Inj, 4 mg, IV Push NS 1000 ml Bolus, 1000 mL, IV Zofran 4 mg/2 mL Injection, 4 mg, IV Push Disposition Plan Discharge Prescription List Prescriptions predniSONE 10 mg Tab, See Instructions Follow-up With When Contact Information Richiejose MERVAT In 3 day (more content not included)... Normal [facility] Comment on above: Result Comment: Elec tronically Signed By: Alex Sanchez DO\.br\Date and Time Signed: 12/07/23 23:31 EDT HEMATOLOGYOrdered By: SYSTEM SYSTEM on 12-07-2023 Basophils/100 WBC (Bld) 0.4 % Normal 0.0 - 2.0 % Remisol Heme Basophils/Leukocytes Auto (Bld) [Pure # fraction] 0.0 E9/L Normal 0.0 - 0.2 E9/L Remisol Heme Eosinophils (Bld) [#/Vol] 0.2 E9/L Normal 0.0 - 0.5 E9/L Remisol Heme Eosinophils/100 WBC (Bld) 3.6 % Normal 0.0 - 8.0 % Remisol Heme Erythrocyte distribution width (RBC) [Ratio] 17.0 % High 10.9 - 14.2 % Remisol Heme Hematocrit (Bld) [Volume fraction] 33.4 % Low 34.0 - 46.0 % Remisol Heme Hemoglobin (Bld) [Mass/Vol] 11.0 g/dL Low 12.0 - 16.0 gm/dL Remisol Heme Lymphocytes (Bld) [#/Vol] 0.8 E9/L Low 1.0 - 4.0 E9/L Remisol Heme Lymphocytes/100 WBC (Bld) 14.9 % Normal 14.0 - 50.0 % Remisol Heme MCH (RBC) [Entitic mass] 27.6 pg Normal 27.0 - 34.0 pg Remisol Heme MCHC (RBC) [Mass/Vol] 32.9 g/dL Normal 31.4 - 36.0 gm/dL Remisol Heme MCV (RBC) [Entitic vol] 83.9 fL Normal 80.0 - 100.0 fL Remisol Heme Monocytes (Bld) [#/Vol] 0.5 E9/L Normal 0.2 - 1.0 E9/L Remisol Heme Monocytes/100 WBC (Bld) 9.3 % Normal 4.0 - 14.0 % Remisol Heme Neutrophils (Bld) [#/Vol] 4.0 E9/L Normal 2.0 - 7.5 E9/L Remisol Heme Neutrophils/100 WBC (Bld) 71.8 % Normal 36.0 - 75.0 % Remisol Heme Platelet 337.0 E9/L Normal 150.0 - 500.0 E9/L Remisol Heme Platelet mean volume (Bld) [Entitic vol] 7.4 fL Normal 6.4 - 10.8 fL Remisol Heme RBC (Bld) [#/Vol] 4.0 E12/L Low 4.3 - 5.9 E12/L Remisol Heme WBC corrected for nucl RBC Auto (Bld) [#/Vol] 5.6 E9/L Normal 4.0 - 11.0 E9/L Remisol Heme Hep Func Panelon 12-07-2023 Albumin [Mass/Vol] 3.9 g/dL Normal 3.3-5.0 [facility] Comment on above: Performed By: #### 2 [id number], 0612248, 2761522, 4257287, 4124452, [id number] #### [facility] [address] [place] [address] Albumin/Globulin (S) [Mass conc ratio] 1.2 Normal 1.1-2.2 [facility] Comment on above: Performed By: #### 2 767314, 1367466, 3969715, 1860728, 0638176, [id number] #### [facility] [address] [place] [address] ALP [Catalytic activity/Vol] 68 Int._Unit/L Normal 21-98 [facility] Comment on above: Performed By: #### 2 162919, 5716008, 6447776, 1454433, 4345828, [id number] #### [facility] [address] [place] [address] ALT No additional P-5'-P [Catalytic activity/Vol] 10 Int._Unit/L Normal 6-46 [facility] Comment on above: Performed By: #### 2 491442, 6697914, 4879564, 9563300, 7758075, [id number] #### [facility] [address] [place] [address] AST [Catalytic activity/Vol] 11 Int._Unit/L Normal 5-43 [facility] Comment on above: Performed By: #### 2 597479, 0425449, 5291851, 5088506, 3162506, 78135217 #### [facility] [address] [place] [address] Bilirubin [Mass/Vol] 0.4 mg/dL Normal 0.0-1.1 [facility] Comment on above: Performed By: #### 2 028261, 3942147, 6519591, 3872583, 1994831, 38861720 #### [facility] [address] [place] [address] Bilirubin.direct [Mass/Vol] 0.1 mg/dL Normal 0.0-0.4 [facility] Comment on above: Performed By: #### 2 731763, 9890774, 4655402, 5669000, 3043353, 65856435 #### [facility] [address] [place], [place] [address] Bilirubin.indirect [Mass or moles/Vol] 0.3 mg/dL Normal 0.1-0.9 [facility] Comment on above: Performed By: #### 2 278450, 0121755, 5867622, 4697660, 5208857, 18015034 #### [facility] [address] [place] [address] Globulin (S) [Mass/Vol] 3.3 g/dL Normal 1.4-4.0 [facility] Comment on above: Performed By: #### 2 440936, 6915028, 0036691, 7830533, 1784371, 87203160 #### [facility] [address] [place] [id number] Protein [Mass/Vol] 7.2 g/dL Normal 6.0-7.8 [facility] Comment on above: Performed By: #### 2 401342, 1537646, 1551167, 1594337, 6274536, 49340787 #### [facility] [address] [place] [address] Lipase Levelon 12-07-2023 Lipase [Catalytic activity/Vol] 66 U/L High 13-58 [facility] Comment on above: Performed By: #### 2 081843, 7066886, 3114712, 7420348, 2178528, 00539667 #### [facility] [address] [place] [address] SEROLOGYOrdered By: Marko Coronadoedavid on 12-07-2023 Beta HCG ( test) Ql Negative (12/07/23 7:23 PM) Normal [facility] Man Sero UA With Cult Reflexon 2023 Bilirubin Ql (U) Negative Normal Negative [facility] Comment on above: Performed By: #### 1 [id number] #### [facility] [address] [place] [address] Clarity (U) CLEAR Normal Clear [facility] Comment on above: Performed By: #### 1 [id number] #### [facility] [address] [place] [address] Color (U) YELLOW Normal Yellow [facility] Comment on above: Performed By: #### 1 [id number] #### [facility] [address] [place] [address] Epithelial cells.squamous LM.HPF (Urine sed) [#/Area] 0-2 Normal 0-2 [facility] Comment on above: Performed By: #### 1 [id number] #### [facility] [address] [place] [address] Glucose Test strip (U) [Mass/Vol] Negative Normal Negative [facility] Comment on above: Performed By: #### 1 [id number] #### [facility] [address] [place] [address] Hemoglobin Ql (U) Negative Normal Negative [facility] Comment on above: Performed By: #### 1 [id number] #### [facility] [address] [place] [address] Ketones (U) [Mass/Vol] Negative Normal Negative [facility] Comment on above: Performed By: #### 1 3403689 #### [facility] [address] [place] [address] Reddell.plasma/Lithi um.RBC (Bld) [Mass ratio] 0-3 Normal 0-3 [facility] Comment on above: Performed By: #### 1 7409081 #### [facility] [address] [place] [address] Nitrite Ql (U) Negative Normal Negative [facility] Comment on above: Performed By: #### 1 [id number] #### [facility] [address] [place] [address] pH (U) 6.5 [pH] Invalid Interpretation Code 5.0-9.0 [facility] Comment on above: Performed By: #### 1 [id number] #### [facility] [address] [place] [address] Protein (U) [Mass/Vol] Negative Normal Negative [facility] Comment on above: Performed By: #### 1 2811085 #### [facility] [address] [place] [address] Specific gravity (U) [Rel density] <=1.005 Invalid Interpretation Code 1.005-1.030 [facility] Comment on above: Performed By: #### 1 [id number] #### [facility] [address] [place] [address] Type of Urine collection method Clean Catch Normal [facility] Comment on above: Performed By: #### 1 0815286 #### [facility] [address] [place] [address] Urobilinogen Qn (U) 0.2 {Keyla'U}/dL Normal 0.0-1.0 [facility] Comment on above: Performed By: #### 1 0438207 #### [facility] [address] [place] [address] WBC Auto Ql (U) Negative Normal Negative [facility] Comment on above: Performed By: #### 1 [id number] #### [facility] [address] [place] [address] WBC LM.HPF (Urine sed) [#/Area] 0-5 Normal 0-5 [facility] Comment on above: Performed By: #### 1 [id number] #### [facility] [address] [place] [address] URINALYSISOrdered By: Marko Headley on 12-07-2023 Bilirubin Ql (U) Negative (12/07/23 9:24 PM) Normal Negative [facility] UA Auto SS Clarity (U) Clear (12/07/23 9:24 PM) Normal Clear [facility] UA Auto SS Color (U) Yellow (12/07/23 9:24 PM) Normal Yellow [facility] UA Auto SS Epithelial cells.squamous LM.HPF (Urine sed) [#/Area] 0-2 /HPF Normal 0-2/HPF [facility] UA Auto SS Glucose Test strip (U) [Mass/Vol] Negative (12/07/23 9:24 PM) Normal Negative [facility] UA Auto SS Hemoglobin Ql (U) Negative (12/07/23 9:24 PM) Normal Negative [facility] UA Auto SS Ketones (U) [Mass/Vol] Negative (12/07/23 9:24 PM) Normal Negative [facility] UA Auto SS Reddell.plasma/Lithi um.RBC (Bld) [Mass ratio] 0-3 /HPF Normal 0-3/HPF [facility] UA Auto SS Nitrite Ql (U) Negative (12/07/23 9:24 PM) Normal Negative [facility] UA Auto SS pH (U) 6.5 *NA* (12/07/23 9:24 PM) Invalid Interpretation Code 5.0 - 9.0 [facility] UA Auto SS Protein (U) [Mass/Vol] Negative (12/07/23 9:24 PM) Normal Negative [facility] UA Auto SS Specific gravity (U) [Rel density] <=1.005 *NA* (12/07/23 9:24 PM) Invalid Interpretation Code 1.005 - 1.030 [facility] UA Auto SS UA Spec Desc Clean Catch (12/07/23 9:24 PM) Normal [facility] UA Auto SS Urobilinogen Qn (U) 0.1604733 {Keyla'U}/dL Normal 0.0 - 1.0 EU/dL [facility] UA Auto SS WBC Auto Ql (U) Negative (12/07/23 9:24 PM) Normal Negative [facility] UA Auto SS WBC LM.HPF (Urine sed) [#/Area] 0-5 /HPF Normal 0-5/HPF [facility] UA Auto SS eGFRon 12-07-2023 eGFR 103 mL/min/1.73 m2 Normal >=59 [facility] Comment on above: Order Comment: Order added by Discern Expert. Performed By: #### 2 880859, 8135214, 6788768, 3055657, 1652146, [id number] #### [facility] [address] [place] [address] CNDSon 10-27-2023 CNDS HNO ID: [id number] Author: KALE PRADO MD Service: Obstetrics Author Type: Physician Type: Discharge Summary Filed: 10/27/2023 12:39 Note Text: DISCHARGE SUMMARY OBSTETRICS PATIENT NAME: Rola Aguilar ADMISSION DATE: 10/24/2023 DISCHARGE DATE: 10/27/2023 Attending Physician: Kale Prado MD Code Status: Prior Treatment Team: Attending Provider: Kale Prado MD Maternal Obstetric Provider: Nae Costa MD Reason for Hospitalization: Delivery via section due to non-reassuring biophysical profile in the outpatient setting in the setting of maternal Crohn's disease with ileostomy and stoma prolapse Principal Problem: care following delivery (POA: No) Active Problems: Anxiety and depression (POA: Yes) Maternal Crohn's disease (HCC) (POA: Yes) Ileostomy prolapse (HCC) (POA: Yes) ABLA (acute blood loss anemia) (POA: No) Resolved Problems: Non-reassuring status, delivered, current hospitalization (POA: Yes) Unwanted fertility (POA: Yes) Rubella non-immune status, delivered, current hospitalization (POA: Yes) PROCEDURES/SURGERY DURING HOSPITALIZATION: Delivery Summary: Soham Aguilar [[id number]] Delivery Information: Delivery Date: 10/24/23 Delivery type: , Low Transverse Delivering Clinician: Kale Prado MD Mathews: Gender: Male Weight (grams): 3637 g One Minute : 8 Five Minute : 9 Procedures (if applicable) Recent Surgical Summary Past Procedures (09/27/2023 to Today) Date Procedure/Visit Type Providers Loc / Dept 10/24/2023 SECTIONSALPINGECTOMY COMPLETE BILATERAL Kale Prado (Primary)[facility] Course: Rola is a 28 year old now who presented at 38w1d for delivery after a non-reassuring biophysical profile with a score of 4/8 in the outpatient setting. Rola has a Crohn's disease and is status post ileostomy formation. She was recommended for a primary in this due to ongoing issues with stoma prolapse during her course. She also desired permanent surgical contraception. She underwent an uncomplicated primary with bilateral salpingectomy for permanent surgical contraception. Her course was complicated by acute blood loss anemia for which she received oral iron supplementation. By day #3, she was meeting all / post-operative milestones and was deemed safe for discharge home with routine outpatient follow up in 2 and 6 weeks. Consulting Teams During Hospitalization: Anesthesiology Patient Condition @ Discharge: Excellent Discharge Disposition: Home/Self Care Discharge Physical Exam: Blood pressure 105/74, pulse 94, temperature 36.5 ?C (97.7 ?F), temperature source Oral, resp. rate 18, height 167.6 cm (5' 6 ), weight 93 kg (205 lb), last menstrual period 01/30/2023, SpO2 96%, unknown if currently . Physical Exam Constitutional: General: She is not in acute distress. Appearance: Normal appearance. She is not ill-appearing, toxic-appearing or diaphoretic. HENT: Head: Normocephalic and atraumatic. Eyes: General: No scleral icterus. Right eye: No discharge. Left eye: No discharge. Conjunctiva/sclera: Conjunctivae normal. Cardiovascular: Rate and Rhythm: Normal rate. Pulmonary: Effort: Pulmonary effort is normal. No respiratory distress. Abdominal: General: Abdomen is flat. There is no distension. Palpations: Abdomen is soft. Tenderness: There is abdominal tenderness. There is no guarding or rebound. Comments: ileostomy with bag attached Musculoskeletal: Right lower leg: No tenderness. No edema. Left lower leg: No edema. Neurological: General: No focal deficit present. Mental Status: She is alert and oriented to person, place, and time. Skin: General: Skin is warm and dry. Coloration: Skin is not jaundiced. Psychiatric: Mood and Affect: Mood normal. Behavior: Behavior normal. Thought Content: Thought content normal. Judgment: Judgment normal. Vitals reviewed. Exam conducted with a teradata developer present. Specific Concerns for Follow-up Post Discharge: - Routine Care - Mental Health - Maintenance of chronic medical problems Information Provided to Patient: Activity When You Leave the Hospital Gradually increase your activity level until back to normal at approximately 6 weeks post- (Walking and stairs as tolerated) May use stairs No baths for 6 weeks to allow the cervix to close (this includes swimming pools and hot tubs) No driving for 2 weeks No driving until you stop taking narcotic medicine and you are able to respond to adverse traffic conditions: Until you are not too sore to stop or turn quickly No lifting greater than 15 pounds for six weeks No walking restrictions Shower daily, tow (more content not included)... Normal [facility] ANES POSTPROC EVALon 024 ANES POSTPROC EVAL HNO ID: [id number] Author: SHELLI SANTIAGO MD Service: Anesthesiology Author Type: Anesthesiologist Type: Anesthesia Postprocedure Evaluation Filed: 10/25/2023 10:25 Note Text: POST ANESTHESIA EVALUATION NOTE : 1995 Procedure Summary Date: 10/24/23 Room / Location: [place] [address] / OB Anesthesia Start: 1415 Anesthesia Stop: 1601 Procedures: SECTION (Abdomen) SALPINGECTOMY COMPLETE BILATERAL (Bilateral: Abdomen) Diagnosis: 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) Sterilization consult (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) [O99.612, K50.90]) (Sterilization consult [Z30.09]) Surgeons: Kale Prado MD Responsible Provider: Abby Paz DO Anesthesia Type: CSE ASA Status: 3 Anesthesia Type: CSE Last Vitals Vitals Value Taken Time BP 102/71 10/25/23 0843 Temp 36.4 ?C (97.5 ?F) 10/25/23 0843 Pulse 64 10/25/23 0843 Resp 18 10/25/23 0843 SpO2 96 % 10/25/23 0332 Soham Aguilar [[id number]] Baby Delivery: 10/24/2023 1505 Post Anesthesia Patient Status Patient Evaluation: floor. Anticipated Disposition: inpatient floor planned admission. Neurological Status: aware and responsive. Pulmonary Status: breathing comfortably on room air Airway Control: returned to baseline unsupported. Cardiovascular Status: stable. Pain Management: clinically adequate Postoperative Hydration: acceptable. Intraoperative Events: no significant anesthesia events Post Operative Nausea/Vomiting Status: no significant post operative nausea or vomiting Recommendation: continue current plan of care and further care per PACU/ICU/floor team. Other Remarks: She has had no nausea or pruritus on 4N. She does have a scope patch on still and I went over side effects with her. She has ambulated slowly to the restroom without difficulty, has no c/o headache , and no motor or sensory deficits. Anesthesia Observations No notable events were associated with this procedure. Documented by Lora Lindsey SRNA 10/24/2023 4:14 PM EST SIGNATURE: Shelli Santiago MD PATIENT NAME: Rola Aguilar DATE: October 25, 2023 TIME: 10:23 AM CSN: [id number] Normal [facility] CBC panel Auto (Bld)on 10-25 Erythrocyte distribution width (RBC) [Ratio] 16.6 % High 11.5-15.0 [facility] Comment on above: Order Comment: Speci men Type: BLOOD SPECIMENOrdering Facility: [facility] Address: [address] [place] [address] Performed By: #### 5 8410-2 ####[facility], [facility]ILIR LABORATORYCLIA [id number] [place] [address] [place] Hematocrit (Bld) [Volume fraction] 26.5 % Low 36.0-46.0 [facility] Comment on above: Order Comment: Speci men Type: BLOOD SPECIMENOrdering Facility: [facility] Address: [address] [place] [address] Performed By: #### 5 8410-2 ####[facility] LABORATORYCLIA [id number] [place] [address] [place] Hemoglobin (Bld) [Mass/Vol] 8.5 g/dL Low 11.5-15.5 [facility] Comment on above: Order Comment: Speci men Type: BLOOD SPECIMENOrdering Facility: [facility] Address: [address] [place] [address] Performed By: #### 5 8410-2 ####[facility] LABORATORYCLIA [id number] [place] MCH (RBC) [Entitic mass] 28.2 pg Normal 26.0-34.0 [facility] Comment on above: Order Comment: Speci men Type: BLOOD SPECIMENOrdering Facility: [facility] [facility] Address: [address] [place] [address] Performed By: #### 5 8410-2 ####[facility] LABORATORYCLIA [id number] [place] [address] [place] MCHC (RBC) [Mass/Vol] 32.1 g/dL Normal 30.5-36.0 [facility] Comment on above: Order Comment: Speci men Type: BLOOD SPECIMENOrdering Facility: [facility] Address: [address] [place] [address] Performed By: #### 5 8410-2 ####[facility] LABORATORYCLIA [id number] [address] [place] MCV (RBC) [Entitic vol] 88.0 fL Normal 80.0-100.0 [facility] Comment on above: Order Comment: Speci men Type: BLOOD SPECIMENOrdering Facility: [facility] Address: [address] [place] [address] Performed By: #### 5 8410-2 ####[facility] LABORATORYCLIA [id number] [place] [address] [place] Nucleated RBC (Bld) [#/Vol] 10*3/uL Normal <0.01 [facility] Comment on above: Order Comment: Speci men Type: BLOOD SPECIMENOrdering Facility: [facility] Address: [address] [place] [address] Performed By: #### 5 8410-2 ####[facility] LABORATORYCLIA [id number] [place] [id number] [place] Platelet mean volume (Bld) [Entitic vol] 10.8 fL Normal 9.0-12.7 [facility] Comment on above: Order Comment: Speci men Type: BLOOD SPECIMENOrdering Facility: [facility] Address: [address] [place] [address] Performed By: #### 5 8410-2 ####[facility] LABORATORYCLIA [id number] [place] [address] [place] Platelets (Bld) [#/Vol] 151 10*3/uL Normal 150-400 [facility] Comment on above: Order Comment: Speci men Type: BLOOD SPECIMENOrdering Facility: [facility] Address: [address] [place] [address] Performed By: #### 5 8410-2 ####[facility] LABORATORYCLIA [id number] [place] [address] [place] RBC (Bld) [#/Vol] 3.01 10*6/uL Low 3.90-5.20 [facility] Comment on above: Order Comment: Speci men Type: BLOOD SPECIMENOrdering Facility: [facility] Address: [address] [place] [address] Performed By: #### 5 8410-2 ####[place] [facility]ORYCLIA [id number] [place] [address] [place] WBC (Bld) [#/Vol] 6.43 10*3/uL Normal 3.70-11.00 [facility] Comment on above: Order Comment: Speci men Type: BLOOD SPECIMENOrdering Facility: [facility] Address: [address] [place] [address] Performed By: #### 5 8410-2 ####[facility] [id number] [place] [address] [place] ANES PRE-OPon 10-24-2023 ANES PRE-OP HNO ID: [id number] Author: DIVYA BRUNSON APRN.CRNA Service: Anesthesiology Author Type: Nurse Assembly Line Machine Operator Type: Anesthesia Preprocedure Evaluation Filed: 10/24/2023 11:19 Note Text: OB ANESTHESIA PRE-PROCEDURE ASSESSMENT PATIENT NAME: Rola Aguilar : 1995 28 year old female here for a primary . Patient is a 38w1d who had a BPP in the office of 12/29 today and noted DFM. Patient has a long standing history of Crohn's disease diagnosed in 2013 with severe flares during this . Patient has a stoma and has had significant prolapse during this as well as a seton drain placed which has led to the request of a c/s. Patient previously had an epidural. I personally discussed a CSE with her and she understands. She is anemic and has received 4 iron infusions during this . [facility] ANES FORGE HELPER: Previous OB anesthetic: Epidural No OB anesthesia considerations No prior risk factors reported No current obstetric problems/important considerations GERD: GERD well controlled with no positional symptoms Relevant Problems Gastrointestinal (+) Crohn's disease of colon with complication (HCC) (+) Malnutrition of mild degree (HCC) Infectious Disease (+) Perineal abscess Other (+) Anxiety I - PHYSICAL EVALUATION AIRWAY Patient intubated: No. Tracheostomy tube not present Mallampati: I. TM distance: >3 FB. Neck ROM: full ROM without neurological symptoms. Mouth opening: adequate. Short neck: no. Thick neck: no DENTAL Dental findings: poor dentition. II - ANESTHESIA PLAN ASA Score: 3 Anesthetic Plan: CSE The patient is not a current smoker. NPO Status: inadequate (solids 10/24/23 0800) Beta Olena Monitoring Plan Monitoring plan: standard ASA. Post Procedure Analgesic Plan Postoperative analgesic plan: per surgical service. Informed Consent Anesthetic risks, benefits, alternatives, personnel and consent discussed: yes. Patient / Responsible Republican agrees to proceed: yes Patient / Surrogate agrees to blood products: Yes DNR status not reviewed with patient and/or family prior to surgery. Significant changes in the patient condition since the History and Physical, not otherwise documented in primary service progress note: no. Potential Anesthesia issues that may suggest increased risk of complications or contraindication to planned procedure: none. [facility] CHART REVIEW: ACTIVE PROBLEM LIST Perineal Abscess Malnutrition of Mild Degree (Hcc) Hypokalemia Obesity, Class II, Bmi 35-39.9 History of Creation of Ostomy (Hcc) Crohn's Disease of Colon With Complication (Hcc) Imaging of Gastrointestinal Tract Abnormal Maternal Crohn's Disease Affecting in Second Trimester (Hcc) Obesity, Class I, Bmi 30-34.9 Anxiety Abdominal Pain Affecting General Counseling and Advice for Contraceptive Management Abdominal Pain Crohn's Disease of Small and Large Intestines With Complication (Hcc) Crohn's Disease of Large Intestine Without Complication (Hcc) Maternal Crohn's Disease Affecting in Third Trimester (Hcc) Anemia During in Third Trimester Maternal Iron Deficiency Anemia Complicating , Third Trimester Impaired Intestinal Absorption Non-Reassuring Status, Delivered, Current Hospitalization PAST MEDICAL HISTORY Diagnosis Date - Crohn's disease (HCC) - History of transfusion 2017 anemia noted prior to surgery - Migraine with aura - Perianal abscess - Seasonal allergies PAST SURGICAL HISTORY Procedure Laterality Date - COLONOSCOPY GEN ANES 10/20/2020 - EXCISION PILONIDAL CYST/SINUS SIMPLE 06/2016 - PAST SURGICAL HISTORY OF 09/10/2018 Laparoscopic creation of diverting loop ileostomy, laparoscopic TAP block, examination under anesthesia with flexible sigmoidoscopy with biopsies, incision and drainage of complex perianal and supralevator abscesses with drain and seton placement. - PAST SURGICAL HISTORY OF 08/26/2018 Exam under anesthesia, flexible sigmoidoscopy, incision and drainage of deep postanal space abscess, seton and drain placement. - PAST SURGICAL HISTORY OF iliostomy FAMILY HISTORY Problem Relation Age of Onset - Hodgkin Lymphoma Mother NON hodgkin - Colon Cancer Other Social History Tobacco Use - Smoking status: Former Packs/day: .5 Types: Cigarettes - Smokeless tobacco: Never - Tobacco comments: 3 per day Vaping Use - Vaping Use: Never used Substance Use Topics - Alcohol use: Not Currently Comment: 1 per week - Drug use: No SUMAtriptan (IMITREX) 25 mg tablet, Take 1 tablet (25 mg) by mouth two times a day as needed for migraine headache (see administration instructions). at onset of headache. May repeat after 2 hours., Disp: 2 tablet, Rfl: 0 sertraline (ZOLOFT) 50 mg tablet, Take 1 tablet by mouth once daily., Disp: 90 tablet, Rfl: 3 VIT 10 (more content not included)... Normal [facility] CBC panel Auto (Bld)on 10-24 Erythrocyte distribution width (RBC) [Ratio] 16.7 % High 11.5-15.0 [facility] Comment on above: Order Comment: Speci men Type: BLOOD SPECIMEN [facility]ing Facility: [facility] Address: [address] [place] [address] Performed By: #### 2 4323-8, 0-3 #### [facility] CLIA [id number] [address] [place] [address] [place] Hematocrit (Bld) [Volume fraction] 33.2 % Low 36.0-46.0 [facility] Comment on above: Order Comment: Speci men Type: BLOOD SPECIMEN Ordering Facility: [facility] Address: [address] [place] [address] Performed By: #### 2 4323-, 0-3 #### [facility] CLIA [id number] [address] [place] [address] [place] Hemoglobin (Bld) [Mass/Vol] 10.9 g/dL Low 11.5-15.5 [facility] Comment on above: Order Comment: Speci men Type: BLOOD SPECIMEN Ordering Facility: [facility] Address: [address] [place] [address] Performed By: #### 2 4323-8, 0-3 #### [facility] CLIA [id number] [address] [place] [address] [place] MCH (RBC) [Entitic mass] 28.2 pg Normal 26.0-34.0 [facility] Comment on above: Order Comment: Speci men Type: BLOOD SPECIMEN Ordering Facility: [facility] Address: [address] [place] [address] Performed By: #### 2 4323-8, 3040-3 #### [facility] CLIA [id number] [address] [place] [address] [place] MCHC (RBC) [Mass/Vol] 32.8 g/dL Normal 30.5-36.0 [facility] Comment on above: Order Comment: Speci men Type: BLOOD SPECIMEN Ordering Facility: [facility] Address: [address] [place] [address] Performed By: #### 2 4323-8, 3040-3 #### [facility] CLIA [id number] [address] [place] [address] [place] MCV (RBC) [Entitic vol] 86.0 fL Normal 80.0-100.0 [facility] Comment on above: Order Comment: Speci men Type: BLOOD SPECIMEN Ordering Facility: [facility] Address: [address] [place] [address] Performed By: #### 2 4323-8, 0-3 #### [facility] CLIA [id number] [address] [place] [address] [place] Nucleated RBC (Bld) [#/Vol] 10*3/uL Normal <0.01 [facility] Comment on above: Order Comment: Speci men Type: BLOOD SPECIMEN Ordering Facility: [facility] Address: [address] [place] [address] Performed By: #### 2 4323-8, 0-3 #### [facility] CLIA [id number] [address] [place] [address] [place] Platelet mean volume (Bld) [Entitic vol] 10.9 fL Normal 9.0-12.7 [facility] Comment on above: Order Comment: Speci men Type: BLOOD SPECIMEN Ordering Facility: [facility] Address: [address] [place] [address] Performed By: #### 2 4323-8, 3040-3 #### [facility] CLIA [id number] [address] [place] [address] [place] Platelets (Bld) [#/Vol] 214 10*3/uL Normal 150-400 [facility] Comment on above: Order Comment: Speci men Type: BLOOD SPECIMEN Ordering Facility: [facility] Address: [address] [place] [address] Performed By: #### 2 4323-8, 3040-3 #### [facility] CLIA [id number] [address] [place] [id number] [place] RBC (Bld) [#/Vol] 3.86 10*6/uL Low 3.90-5.20 [facility] Comment on above: Order Comment: Speci men Type: BLOOD SPECIMEN Ordering Facility: [facility] Address: [address] [place] [address] Performed By: #### 2 4323-8, 3040-3 #### [facility] CLIA [id number] [address] [place] [address] [place] WBC (Bld) [#/Vol] 5.57 10*3/uL Normal 3.70-11.00 [facility] Comment on above: Order Comment: Speci men Type: BLOOD SPECIMEN Ordering Facility: [facility] Address: [address] [place], [place] [address] Performed By: #### 2 4323-8, 3040-3 #### [facility] CLIA [id number] [address] [place] [id number] [place] HISTORY PHYSICALon HISTORY PHYSICAL HNO ID: [id number] Author: CARLA MCKNIGHT MD Service: Obstetrics Author Type: Resident Type: H&P Filed: 10/24/2023 11:43 Note Text: Attestation signed by Kale Prado MD at 10/24/2023 2:47 PM Attending Note I evaluated the patient and personally participated in the nelson components. I agree with Dr. Mcknight's findings and plan as documented and have discussed the case and management of the patient's care with Dr. Mcknight. Signature: Kale Prado MD Date: 10/24/2023 Time: 2:47 PM SERVICE DATE: 10/24/2023 SERVICE TIME: 11:41 AM PHYSICAL EXAM MUST BE COMPLETED ON ADMISSION The History and Physical (completed in the past 30 days) has been reviewed and the patient has been examined. The contents accurately reflect the patient's condition with the following additions or revisions since the HANDP was completed. POST DELIVERY CONTRACEPTION: Discussed post-delivery contraception options. Patient received written information about post-delivery contraception options. Patient desires permanent sterilization. Rola Aguilar is a 28 year old at 38w1d who presents with a BPP 4/8 with MFM recommending delivery. Patient has a h/o Crohn's disease, plan is to proceed with primary section and permanent sterilization. Last at at 0800. -cEFM -NPO -routine pre-op labs -routine pre-op antibiotics -gen surg has been alerted that we are proceeding to OR Examination indicates no changes. Current OB/Cervical examination indicates: Deferred at this time Current OB plan: Proceed with . Plan of care discussed with: Provider, RN, Patient. This HANDP can be found in the Electronic Medical Record dated 10/22. SIGNATURE: Carla Mcknight MD PATIENT NAME: Rola Aguilar DATE: 10/24/2023 TIME: 11:41 AM PAGER: Normal [facility] OBSTETRIC ULTRASOUND WHIon 0 10-24-2023 [facility] OPERATIVE NOon 10-24-2023 OPERATIVE NO HNO ID: [id number] Author: CARLA MCKNIGHT MD Service: Obstetrics Author Type: Resident Type: Operative Report Filed: 10/24/2023 17:18 Note Text: Attestation signed by Kale Prado MD at 10/24/2023 5:57 PM Attending Note I was scrubbed in and directly supervised Drs. Mcknight and Kevin who completed this uncomplicated primary with bilateral salpingectomy. I agree with Dr. Mcknight's documentation with the following edits. Specimens: - Cord blood specimen - Cord blood pH - Right fallopian tube - Left fallopian tube Signature: Kale Prado MD Date: 10/24/2023 Time: 5:55 PM OB OPERATIVE/PROCEDURE REPORT LOG ID: [id number] Surgery/Procedure Date: 10/24/2023 Incision/Procedure Start Time: 2:57 PM Incision Close/Procedure End Time: 3:41 PM Surgeon(s)/Procedurali st(s) and Global Program Manager(s): Surgeon(s) and Role: * Kale Prado MD - Primary * Dolores Brown MD - Resident - Assisting * Carla Mcknight MD - Resident - Assisting No Additional Staff Informed Consent: Informed Consent obtained and on the chart Procedure: Section, bilateral salpingectomy Gestational Age at Delivery: 38w1d Reason for Delivery Today: PRIMARY Reason for Delivery : Suspicious Testing Additional Clinical Indicator(s) for delivery: Other (see comment) Delivery type: , Low Transverse Intrapartum Complications: None Delivery between 24 - 34 weeks?: No Indications for : Maternal Medical Condition Additional Pre-Op Details (if applicable): Rola Aguilar is a 28 year old at 38w1d who had a BPP at 12/29 and was recommended for delivery per [facility]. Patient has a h/o crohn's disease with an ileostomy in place, decision made to proceed with primary section. Patient also desired permanent sterilization. Postop Diagnosis: Same as pre-op diagnosis Procedures and Anesthesia: Procedure(s) and Anesthesia Type: * SECTION - Spinal-Epidural Combo * SALPINGECTOMY COMPLETE BILATERAL - Spinal Information for the patient's : Soham Aguilar [[id number]] Type: , Low Transverse Operative Findings: Weight: 3.637 kg (8 lb 0.3 oz) (Filed from Delivery Summary) Sex: male One Minute : 8 Five Minute : 9 Cord Complications: None Additional Findings: 1) Normal uterus, normal tubes, and normal ovaries TECHNIQUE: The patient was taken to the operating room where spinal anesthesia was administered and found to be adequate. She was placed in supine position with a left tilt. SCD's were placed. Perez catheter was placed under sterile conditions. She was prepped and draped in the usual sterile fashion for abdominal surgery. Pfannensteil incision was made with the scalpel. Incision was taken down to the fascia with the scalpel, and the fascia was incised in the midline. Incision was extended laterally sharply. Rectus muscles were dissected off the fascia bluntly and sharply and divided in the midline. Peritoneum was entered sharply. No adhesions were encountered. Incision was carefully extended superiorly and inferiorly. The bladder blade was then introduced. Hysterotomy was performed in a low transverse fashion with the scalpel. The incision was extended manually in a superolateral fashion. was delivered from a from a cephalic position atraumatically. Cord was clamped and cut, and was handed off to awaiting staff. Cord blood was collected. Placenta then delivered spontaneously with fundal massage. The uterus was then exteriorized and cleared of clots and debris. The bladder blade was reintroduced. The uterus was closed in one layer with a running unlocked stitch of 0-Vicryl. Excellent hemostasis was obtained. Attention was then turned to performing the bilateral salpingectomy. Placing the LigaSure across the right fallopian tube, the LigaSure was used to serially transect the fallopian tube from the mesosalpinx. The tube was then transected from the uterus. This procedure was repeated on the left fallopian tube. Excellent hemostasis was obtained. Uterus was returned to the abdomen. Inspection of the pelvis noted the above findings. The fascia was closed with 0 Vicryl in a running fashion. The subcutaneous tissue was irrigated and made hemostatic with bovie cautery. The subcutaneous tissue was closed with 3-0 Vicryl in a running fashion. The skin was closed with 4-0 Monocryl in a running fashion. SPECIMEN: Cord blood specimen and [place] [facility] blood I/O Blood Loss per time range on right. 10/24/23 1415 - 10/24/23 1705 Calculated Blood Loss (mL) Hospital Encounter 602 Total 602 cc URINE OUTPUT: 50mL IV FLUIDS: 1000 mL crystalloid Impla (more content not included)... Normal [facility] SURGICAL PATHOLOGYon 024 CASE REPORT Normal [facility] Comment on above: Order Comment: [place] Type: BLOOD SPECIMEN Ordering Facility: [facility] Address: [address] [place] [address] Result Comment: Surg ical Pathology Report Case: [id number] Authorizing Provider: Kale Prado, Collected: 10/24/2023 01:58 PM Ordering Location: [facility] 3 L&D Received: 10/25/2023 06:57 AM Pathologist: Macrina Yost MD Specimens: A) - FALLOPIAN TUBE RESECTION LEFT, voluntary sterilization B) - FALLOPIAN TUBE RESECTION RIGHT, same Performed By: #### 5 8410-2 #### [facility] CLIA [id number] [address] [place] [address] [place] CLINICAL HISTORY Normal [facility] Comment on above: Order Comment: [place] Type: BLOOD SPECIMEN Ordering Facility: [facility] Address: [address] [place] [address] Result Comment: Pre- op diagnosis: 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) [O99.612, K50.90] Sterilization consult [Z30.09] Performed By: #### 5 8410-2 #### [facility] CLIA [id number] FINAL DIAGNOSIS Normal [facility] Comment on above: Order Comment: [place] Type: BLOOD SPECIMEN Ordering Facility: [facility] Address: [address] [place] [address] Result Comment: A. F allopian tube, left, salpingectomy -Fimbriated fallopian tube with no significant pathologic abnormality B. Fallopian tube, right, salpingectomy -Fimbriated fallopian tube with no significant pathologic abnormality Performed By: #### 5 8410-2 #### [facility] CLIA [id number] [address] [place] [address] FINAL PERFORMING LAB Normal [facility] Comment on above: Order Comment: Speci men Type: BLOOD SPECIMEN Ordering Facility: [facility] Address: [address] [place] [address] Result Comment: Diag nostic interpretation performed at [facility], [address] [place] [address] CLIA# [id number] Environmental Monitoring Technician: Ilya Alcantar M.D. Performed By: #### 5 8410-2 #### [facility] CLIA [id number] [address] [place] [address] GROSS DESCRIPTION Normal [facility] Comment on above: Order Comment: Speci men Type: BLOOD SPECIMEN Ordering Facility: [facility] Address: [address] [place] [address] Result Comment: A. F ALLOPIAN TUBE RESECTION LEFT Received in formalin designated fallopian tube resection left is a fallopian tube which measures 8.4 cm in length by 0.7 cm in diameter. The fimbriated end has a normal villous appearance which has been amputated and bisected. Sectioning of the fallopian tube reveals a pinpoint lumen. The fimbriated end is totally submitted along with motor vehicle representative cross-sections in 1 cassette. B. FALLOPIAN TUBE RESECTION RIGHT Received in formalin designated fallopian tube resection right is a fallopian tube which measures 8 cm in length by 0.5 cm in diameter. The fimbriated end has a normal villous appearance which has been amputated and bisected. Sectioning of the fallopian tube reveals a pinpoint lumen. The fimbriated end is totally submitted along with motor vehicle representative cross-sections in 1 cassette. BF October 25, 2023 8:40 AM Gross examination performed at [facility], [address] [place] [address] CLIA # [id number] Performed By: #### 5 8410-2 #### [facility] CLIA [id number] [address] [place] [address] [place] TYPE + SCREEN PRENATALon ABO B Normal [facility] Comment on above: Order Comment: Speci men Type: BLOOD SPECIMENOrdering Facility: [facility] Address: [address] [place] [address] Performed By: #### T SPN ####[facility] [facility] [id number] [address] OF [facility] HISTORICAL AB SCR STATUS Negative [facility] Comment on above: Order Comment: Speci men Type: BLOOD SPECIMENOrdering Facility: [facility] Address: [address] [place] [address] Performed By: #### T SPN ####[facility] [facility] [id number] [place] [address] [place] Rh Nom (Bld) Positive [facility] Comment on above: Order Comment: Speci men Type: BLOOD SPECIMENOrdering Facility: [facility] Address: [address] [place] [address] Performed By: #### T SPN ####[facility] [facility] [id number] [address] TYPE AND SCREEN EXPIRATION 10/27/2023 23:59 Normal [facility] Comment on above: Order Comment: Speci men Type: BLOOD SPECIMENOrdering Facility: [facility] Address: [address] [place] [address] Performed By: #### T SPN ####[facility] [facility] [id number] [place] [address] [place] CNCOon 10-22-2023 CNCO Letter Text Normal [facility] HISTORY PHYSICALon HISTORY PHYSICAL HNO ID: [id number] Author: NAE COSTA MD Service: ? Author Type: Physician Type: H&P Filed: 10/22/2023 12:23 Note Text: OBSTETRICS HISTORY AND PHYSICAL NAME: Rola Aguilar SERVICE DATE: October 22, 2023 SERVICE TIME: 1220 ASSESSMENT AND PLAN: 28 year old EGA:37w6d. Plan for delivery in <30 days. Primary c/s for h/o crohns and tubal sterilization POST DELIVERY CONTRACEPTION: Discussed post-delivery contraception options. Patient received written information about post-delivery contraception options. Patient desires permanent sterilization. SUBJECTIVE: CHIEF COMPLAINT: Scheduled section HISTORY OF THE PRESENT ILLNESS: The patient is a 28 year old female, , who is at 37w6d with an SUSHMA of 11/06/2023, by Last Menstrual Period dating method. Patient has Good movement. Denies vaginal bleeding., Denies contractions., Denies leaking of fluid. . Patient is GBS Negative. Her has been complicated by the following issues: Active Non-Hospital Problems Diagnosis Date Noted Maternal iron deficiency anemia complicating , third trimester 09/13/2023 Impaired intestinal absorption 09/13/2023 Anemia during in third trimester 09/05/2023 Maternal Crohn's disease affecting in third trimester (HCC) 08/23/2023 Overview Note: Followed by Dr. Thakkar Plan serial growth scans. Plan primary c/s Crohn's disease of large intestine without complication (HCC) 08/21/2023 Crohn's disease of small and large intestines with complication ([facility]) 08/20/2023 Abdominal pain 08/19/2023 General counseling and advice for contraceptive management 08/01/2023 Overview Note: Salpingectomy. Medicaid consent signed 08/01 Abdominal pain affecting 07/26/2023 Anxiety 07/04/2023 Obesity, Class I, BMI 30-34.9 05/01/2023 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) 04/30/2023 Imaging of gastrointestinal tract abnormal 02/04/2023 Overview Note: MRE and MR pelvis IMPRESSION: Possible mild inflammatory change of the terminal ileum, distal to the ileostomy. Otherwise, no active inflammatory small bowel Crohn's disease. Probable mild inflammatory changes of the mid to distal descending colon. Persistent active perianal disease, similar to prior CT although improved from prior MRI. No perianal abscess. Crohn's disease of colon with complication (HCC) 01/17/2023 Overview Note: -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 She was treated with PDN, ADA from [id number], lost response due to development of AB, UST from [id number] lost insurance and was not on medications. 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 No medications since then. Recent discharge from hospital 01/08-01/21 for abdominal pain, bleeding and stool per rectum. Underwent MRE and MRI pelvis, ileoscopy and colonoscopy which shows active inflammation involving small and large intestine. +inflammation in the cele anal fistula tract. Started on IVCS and now on PO prednisone taper History of creation of ostomy ([facility]) 01/22/2021 Obesity, Class II, BMI 35-39.9 08/26/2020 Hypokalemia 09/12/2018 Malnutrition of mild degree ([facility]) 09/11/2018 Perineal abscess 09/09/2018 Overview Note: Added automatically from request for surgery [id number] ANESTHESIA COMPLICATIONS: None HISTORY REVIEW PAST MEDICAL HISTORY Diagnosis Date Crohn's disease ([facility]) History of transfusion 2016 anemia noted prior to surgery Migraine with aura Perianal abscess Seasonal allergies PAST SURGICAL HISTORY Procedure Laterality Date COLONOSCOPY GEN ANES 10/20/2020 EXCISION PILONIDAL CYST/SINUS SIMPLE 06/2016 PAST SURGICAL HISTORY OF 09/10/2018 Laparoscopic creation of diverting loop ileostomy, laparoscopic TAP block, examination under anesthesia with flexible sigmoidoscopy with biopsies, incision and drainage of complex perianal and supralevator abscesses with drain and seton placement. PAST SURGICAL HISTORY OF 08/26/2018 Exam under anesthesia, flexible sigmoidoscopy, incision and drainage of deep postanal space abscess, seton and drain placement. PAST SURGICAL HISTORY OF iliostomy FAMILY HISTORY Problem Relation Age of Onset Hodgkin Lymphoma Mother NON hodgkin Colon Cancer Other Social History Tobacco Use Smoking status: Former Packs/day: .5 Types: Cigarettes Smokeless tobacco: Never Tobacco comments: 3 per day Vaping Use Vaping Use: Never used Substance Use Topics Alcohol use: Not Currently Comment: 1 per week Drug use: No Obstetric History T1 L1 SAB0 IAB0 Ectopic0 Multiple0 Live Births1 Name of Baby 1: Coby Date: 02/03/15 GA: 40w0d Delivery: Vaginal, Spontaneous Apgar1: Not recorded Apgar5: Not recorded Living: Living Name of Baby 2: Not recorded Date: Not recorded GA: Not recorded Delivery: Not recorded Apgar1: Not recorded Apgar5: Not recorded Living (more content not included)... [facility] CNOVon 10-18-2023 CNOV Office Visit (COFHAM ) ROLA AGUILAR ([id number]) 1995 F Date Time Provider Department 10/18/23 10:20 AM SHAQ THAKKAR [facility] During your visit today, we recorded the following information about you: Pulse Blood pressure 78/minute 117/76 Shaq Thakkar MD 10/18/2023 10:53 AM Signed COLORECTAL SURGERY October 18, 2023 Rola Aguilar 28 year old Chief Complaint: crohn's disease History of Present Illness: Rola Aguilar is a 28 year old female female presents to the office for a follow up evaluation of crohn's disease. She was last seen in the office on 08/02/23. She was previously seen in the hospital on 05/01/23. 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 She has been on humira and stellara, but not remicade. She hasn't received treatment since 2018 and was supposed to be seen with Dr Cirilo Villa, but she canceled her appointment. MRI pelvis on 08/20/23: Active inflammation involving the ascending colon, transverse colon, and descending colon. Sparing of the rectum. No definite small bowel inflammation though examination limited due to gravid uterus. Prior A/P on 08/02/23: Rola Aguilar is a 27 year old female with Crohn's disease, a loop ileostomy and is now in her 2nd trimester. We discussed the following plan today. -Non narcotic pain management per OB. -Attempt to carry the to full term but to call immediately or head to ED if prolapse becomes incarcerated. We explained this to her today. -Post- to start medications for her Crohns with Dr. Ornelas. -Re-evaluate with endoscopy and cele-anal exam. -Consider ileostomy closure. 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 She is assisted by her boyfriend from a support perspective PAST MEDICAL HISTORY Diagnosis Date Crohn's disease (HCC) History of transfusion 2017 anemia noted prior to surgery Migraine with aura Perianal abscess Seasonal allergies PAST SURGICAL HISTORY Procedure Laterality Date COLONOSCOPY GEN ANES 10/20/2020 EXCISION PILONIDAL CYST/SINUS SIMPLE 06/2016 PAST SURGICAL HISTORY OF 09/10/2018 Laparoscopic creation of diverting loop ileostomy, laparoscopic TAP block, examination under anesthesia with flexible sigmoidoscopy with biopsies, incision and drainage of complex perianal and supralevator abscesses with drain and seton placement. PAST SURGICAL HISTORY OF 08/26/2018 Exam under anesthesia, flexible sigmoidoscopy, incision and drainage of deep postanal space abscess, seton and drain placement. PAST SURGICAL HISTORY OF iliostomy Current Outpatient Medications Medication Sig Dispense Refill SUMAtriptan (IMITREX) 25 mg tablet Take 1 tablet (25 mg) by mouth two times a day as needed for migraine headache (see administration instructions). at onset of headache. May repeat after 2 hours. 2 tablet 0 sertraline (ZOLOFT) 50 mg tablet Take 1 tablet by mouth once daily. 90 tablet 3 VIT 04-CYUJ-MTHED-DHA ORAL Take by mouth. metoclopramide HCl (REGLAN) 10 mg tablet Take 1 tablet by mouth three times a day. 30 tablet 0 ondansetron orally disintegrating (ZOFRAN ODT) 4 mg disintegrating tablet TAKE 1 TABLET BY MOUTH EVERY 8 HOURS NEEDED FOR NAUSEA AND VOMITING No current facility-administered medications for this visit. ALLERGIES Allergen Reactions Hydromorphone Itching FAMILY HISTORY Problem Relation Age of Onset Hodgkin Lymphoma Mother NON hodgkin Colon Cancer Other Social History Tobacco Use Smoking status: Former Packs/day: .5 Types: Cigarettes Smokeless tobacco: Never Tobacco comments: 3 per day Vaping Use Vaping Use: Never used Substance Use Topics Alcohol use: Not Currently Comment: 1 per week Drug use: No Physical Exam: LMP 01/30/2023 (Exact Date) General Appearance: Well appearing, alert, in no acute distress, well-hydrated, well nourished. Skin: Skin color, texture, turgor normal Head: Normocephalic Oropharynx: Lips, mucosa, and tongue normal Neck: Supple Lungs: breathing unlabored on room air Extremities: No deformities, no weakness Neuro: Gait normal Abdomen: Normal abdominal exam Anorectal: External exam reveals: see below Journeyman Machinist present: yes Assessment Assessment and Plan: Rola Aguilar is a 28 year old female with a diverting ostomy (Crohn's) and in her third trimester. Today we discussed her ostomy output and how to stay hydrated for the rest of her . She will see me or Dr Tai 3 months post-operatively to discuss reversal and also establish care with Dr Villa for GI. Shaq Thakkar MD Colorectal Surgery Allergies As of Date: 10/18/2023 Noted Allergy Reaction HYDROMORPHONE 05/26/2023 9 - Itchi (more content not included)... [facility] ROUTINE, GROUP B ST REP PCRon 10-15-2023 ROUTINE, GROUP B STREP PCR GROUP B STREP PCR: Negative for Group B Streptococcus by PCR. [facility] Comment on above: Performed By: #### G BPCR ####[facility] LABCLIA [id number] [address] STATES OF [facility] Ciro 10-14-2023 JIMMYN Telephone (HEMTSA) ROLA AGUILAR ([id number]) 1995 F Date Time Provider Department 10/14/23 FINANCIAL NAVIGATOR FELICIA JOHNSON During your visit today, we recorded the following information about you: Jessee Santiago 10/14/2023 3:07 PM Signed Patient on 1st time treatment report-non oncology regimen (venofer) Patient holds Medicaid coverage and no FA available for this treatment. Allergies As of Date: 10/14/2023 Noted Allergy Reaction HYDROMORPHONE 05/26/2023 9 - Itching Date Reviewed: 10/08/2023 Reviewed by: Flavia Glass Ma - Fully Assessed Reason for Visit: Benefits Investigation [4098] Prescriptions as of 10/14/2023 - sertraline (ZOLOFT) 50 mg tablet Take 1 tablet by mouth once daily. - VIT 66-DYTF-AVCSE-DHA ORAL Take by mouth. - metoclopramide HCl (REGLAN) 10 mg tablet Take 1 tablet by mouth three times a day. - ondansetron orally disintegrating (ZOFRAN ODT) 4 mg disintegrating tablet TAKE 1 TABLET BY MOUTH EVERY 8 HOURS NEEDED FOR NAUSEA AND VOMITING Problem List As Of Date 10/14/2023 Noted Resolved Crohn's disease (regional enteritis) (HCC) [K50*08/22/2018 02/04/2023 Abdominal pain [R10.9] 09/10/2018 01/21/2023 Hypomagnesemia [E83.42] 09/11/2018 09/12/2018 Hyponatremia [E87.1] 09/11/2018 09/12/2018 Perineal abscess [L02.215] 09/09/2018 Malnutrition of mild degree (HCC) [E44.1] 09/11/2018 Hypokalemia [E87.6] 09/12/2018 Crohn's colitis (HCC) [K50.10] 09/09/2018 02/04/2023 Obesity, Class II, BMI 35-39.9 [E66.9] 08/26/2020 History of creation of ostomy (HCC) [Z93.9] 01/22/2021 Crohn's disease of colon with complication (HCC*01/17/2023 History of endoscopy [Z98.890] 02/04/2023 07/04/2023 Imaging of gastrointestinal tract abnormal [R93*02/04/2023 13 weeks gestation of [Z3A.13] 04/30/2023 07/04/2023 Maternal Crohn's disease affecting in*04/30/2023 Obesity, Class I, BMI 30-34.9 [E66.9] 05/01/2023 Anxiety [F41.9] 07/04/2023 Abdominal pain affecting [O26.899, R1*07/26/2023 25 weeks gestation of [Z3A.25] 07/27/2023 08/01/2023 General counseling and advice for contraceptive*08/01/20 23 Abdominal pain [R10.9] 08/19/2023 Crohn's disease of small and large intestines w*08/20/2023 Crohn's disease of large intestine without comp*08/21/2023 Maternal Crohn's disease affecting in*08/23/2023 29 weeks gestation of [Z3A.29] 08/23/2023 09/05/2023 Anemia during in third trimester [O99*09/05/2023 Maternal iron deficiency anemia complicating pr*09/13/2023 Impaired intestinal absorption [K90.9] 09/13/2023 Encounter Status:Closed by JESSEE SANTIAGO on 10/14/23 [facility] Telephone (JUAN) ROLA AGUILAR ([id number]) 1995 F Date Time Provider Department 10/14/23 INSTRUMENT MECHANICS SUPERVISOR JUAN During your visit today, we recorded the following information about you: Lars Dutton RN 10/14/2023 1:04 PM Signed Left message that this is a LC calling from her providers office to discuss baby friendly information, any questions or concerns she may have and what to expect in the hospital with . Left AP office name and number. Lars Dutton RN Allergies As of Date: 10/14/2023 Noted Allergy Reaction HYDROMORPHONE 05/26/2023 9 - Itching Date Reviewed: 10/08/2023 Reviewed by: Flavia Glass Ma - Fully Assessed Reason for Visit: Baby Friendly [4218] Prescriptions as of 10/14/2023 - sertraline (ZOLOFT) 50 mg tablet Take 1 tablet by mouth once daily. - VIT 18-VNIC-AOQHB-DHA ORAL Take by mouth. - metoclopramide HCl (REGLAN) 10 mg tablet Take 1 tablet by mouth three times a day. - ondansetron orally disintegrating (ZOFRAN ODT) 4 mg disintegrating tablet TAKE 1 TABLET BY MOUTH EVERY 8 HOURS NEEDED FOR NAUSEA AND VOMITING Facility-Administered Medications as of 10/14/2023 - NaCl 0.9% iv infusion - diphenhydrAMINE 50 mg injection (BENADRYL) - hydrocortisone sodium succinate (PF) 100 mg injection (Solu-CORTEF) - EPINEPHrine 1 mg/mL (1 mL) 0.3 mg injection - sodium chloride 0.9 % (flush) 10-20 mL (BD POSIFLUSH) - sodium chloride 0.9 % (flush) 10-20 mL (BD POSIFLUSH) Problem List As Of Date 10/14/2023 Noted Resolved Crohn's disease (regional enteritis) (HCC) [K50*08/22/2018 02/04/2023 Abdominal pain [R10.9] 09/10/2018 01/21/2023 Hypomagnesemia [E83.42] 09/11/2018 09/12/2018 Hyponatremia [E87.1] 09/11/2018 09/12/2018 Perineal abscess [L02.215] 09/09/2018 Malnutrition of mild degree (HCC) [E44.1] 09/11/2018 Hypokalemia [E87.6] 09/12/2018 Crohn's colitis (HCC) [K50.10] 09/09/2018 02/04/2023 Obesity, Class II, BMI 35-39.9 [E66.9] 08/26/2020 History of creation of ostomy (HCC) [Z93.9] 01/22/2021 Crohn's disease of colon with complication (HCC*01/17/2023 History of endoscopy [Z98.890] 02/04/2023 07/04/2023 Imaging of gastrointestinal tract abnormal [R93*02/04/2023 13 weeks gestation of [Z3A.13] 04/30/2023 07/04/2023 Maternal Crohn's disease affecting in*04/30/2023 Obesity, Class I, BMI 30-34.9 [E66.9] 05/01/2023 Anxiety [F41.9] 07/04/2023 Abdominal pain affecting [O26.899, R1*07/26/2023 25 weeks gestation of [Z3A.25] 07/27/2023 08/01/2023 General counseling and advice for contraceptive*08/01/20 23 Abdominal pain [R10.9] 08/19/2023 Crohn's disease of small and large intestines w*08/20/2023 Crohn's disease of large intestine without comp*08/21/2023 Maternal Crohn's disease affecting in*08/23/2023 29 weeks gestation of [Z3A.29] 08/23/2023 09/05/2023 Anemia during in third trimester [O99*09/05/2023 Maternal iron deficiency anemia complicating pr*09/13/2023 Impaired intestinal absorption [K90.9] 09/13/2023 Encounter Status:Closed by LARS DUTTON on 10/14/23 [facility] Urineon 10-03-2023 Bacteria identified Cx Nom (U) Microbiology PROCEDURE: Urine Culture [R1] SOURCE: U CleanCatch BODY SITE: COLLECTED DATE/TIME: 10/01/2023 17:55 EST RECEIVED DATE/TIME: 10/01/2023 18:50 EST START DATE/TIME: 10/01/2023 18:50 EST FREE TEXT SOURCE: Harry Devine DO, DO, Harry FINAL REPORTS Final Report [] Verified Date/Time: 10/03/2023 10:01 EST 2,000 cfu/ml Mixed skin contaminants Performing Locations R1: [facility], [address] [place] [address], [address]- , , [facility] Comment on above: Performed By: #### 2 [id number], 3292775, 0193935, 7844812, 0430128, [id number] #### [facility] [address] [place] [address] Nursing Assessmenton 024 Nursing Assessment [id number]#1.0 0TIFF Normal [facility] Auto Diffon 10-01-2023 Basophils/100 WBC (Bld) 0.3 % Normal 0.0-2.0 [facility] Comment on above: Order Comment: Order Added by Discern Expert. Performed By: #### 2 585731, 2688605, 8284855, 0929212, 7873339, 01374424 #### [facility] [address] [place] [address] Basophils/Leukocytes Auto (Bld) [Pure # fraction] 0.0 E9/L Normal 0.0-0.2 [facility] Comment on above: Order Comment: Order Added by Discern Expert. Performed By: #### 2 782078, 6790568, 6623743, 7894474, 5303855, 54088003 #### [facility] [address] [place] [address] Eosinophils/100 WBC (Bld) 1.2 % Normal 0.0-8.0 [facility] Comment on above: Order Comment: Order Added by Discern Expert. Performed By: #### 2 517989, 2566673, 8165280, 0552785, 6528091, 35903981 #### [facility] [address] [place] [address] Eosinophils/Leukocyt es Auto (Bld) [Pure # fraction] 0.1 E9/L Normal 0.0-0.5 [facility] Comment on above: Order Comment: Order Added by Discern Expert. Performed By: #### 2 442036, 6802443, 6911177, 2432556, 7291922, 56663427 #### [facility] [address] [place] [address] Lymphocytes/100 WBC (Bld) 18.3 % Normal 14.0-50.0 [facility] Comment on above: Order Comment: Order Added by Discern Expert. Performed By: #### 2 363980, 4897036, 8608644, 9515608, 0760639, 65985091 #### [facility] [address] [place] [address] Lymphocytes/Leukocyt es Auto (Bld) [Pure # fraction] 1.1 E9/L Normal 1.0-4.0 [facility] Comment on above: Order Comment: Order Added by Discern Expert. Performed By: #### 2 457237, 3964564, 8013926, 6148070, 0330243, 40324453 #### [facility] [address] [place] [address] Monocytes/100 WBC (Bld) 7.6 % Normal 4.0-14.0 [facility] Comment on above: Order Comment: Order Added by Discern Expert. Performed By: #### 2 870624, 8838920, 2056055, 0456612, 1718657, 18626217 #### [facility] [address] [place] [address] Monocytes/Leukocytes Auto (Bld) [Pure # fraction] 0.5 E9/L Normal 0.2-1.0 [facility] Comment on above: Order Comment: Order Added by Discern Expert. Performed By: #### 2 895509, 0458506, 0662552, 7121598, 3818494, 54176708 #### [facility] [address] [place] [address] Neutrophils/100 WBC (Bld) 72.6 % Normal 36.0-75.0 [facility] Comment on above: Order Comment: Order Added by Discern Expert. Performed By: #### 2 722156, 6721260, 0665584, 0240197, 9048399, 57723616 #### [facility] [address] [place] [address] Neutrophils/Leukocyt es Auto (Bld) [Pure # fraction] 4.6 E9/L Normal 2.0-7.5 [facility] Comment on above: Order Comment: Order Added by Discern Expert. Performed By: #### 2 880763, 1242079, 9781229, 1502825, 3100775, 82139190 #### [facility] [address] [place] [address] BMPon 10-01-2023 Anion gap [Moles/Vol] 12 mmol/L Normal 6-16 [facility] Comment on above: Performed By: #### 2 486572, 7772849, 9113958, 5246043, 6465489, 64857005 #### [facility] [address] [place] [address] BUN/Creat Ratio 13 No Units Normal 10-20 [facility] Comment on above: Performed By: #### 2 533564, 3310593, 0299623, 5804184, 6849484, 41158917 #### [facility] [address] [place] [address] Calcium [Mass/Vol] 8.7 mg/dL Low 8.9-11.1 [facility] Comment on above: Performed By: #### 2 374985, 3849773, 3700605, 7476415, 6915969, 98518761 #### [facility] [address] [place] [address] Chloride [Moles/Vol] 109 mmol/L Normal 101-111 [facility] Comment on above: Performed By: #### 2 715155, 7434608, 3467463, 3791773, 3205298, 75916922 #### [facility] [address] [place] [address] CO2 [Moles/Vol] 18 mmol/L Low 21-31 [facility] Comment on above: Performed By: #### 2 104041, 0925659, 8776055, 1873332, 7363856, 93037828 #### [facility] [address] [place] [address] Creatinine [Mass/Vol] 0.6 mg/dL Normal 0.5-1.3 [facility] Comment on above: Performed By: #### 2 391680, 5154563, 5395272, 9821920, 2245172, 14352182 #### [facility] [address] [place] [address] Glucose [Mass/Vol] 72 mg/dL Normal 55-199 [facility] Comment on above: Performed By: #### 2 351854, 2428415, 3507914, 5694402, 0383082, 06286042 #### [facility] [address] [place] [address] Potassium [Moles/Vol] 3.8 mmol/L Normal 3.5-5.3 [facility] Comment on above: Performed By: #### 2 451778, 5696111, 0458202, 4012963, 2369453, 04596807 #### [facility] [address] [place] [address] Sodium [Moles/Vol] 135 mmol/L Normal 135-145 [facility] Comment on above: Performed By: #### 2 190176, 9342604, 3084118, 9508864, 6617671, 30846975 #### [facility] [address] [place] [address] Urea nitrogen [Mass/Vol] 8 mg/dL Normal 5-21 [facility] Comment on above: Performed By: #### 2 413345, 4112532, 6151524, 1315396, 8184658, 65509624 #### [facility] [address] [place] [address] CBC w/ Auto Diffon Erythrocyte distribution width (RBC) [Ratio] 13.7 % Normal 10.9-14.2 [facility] Comment on above: Performed By: #### 2 912920, 2276209, 7809452, 3174135, 1318054, 49385840 #### [facility] [address] [place] [address] Hematocrit (Bld) [Volume fraction] 30.6 % Low 34.0-46.0 [facility] Comment on above: Performed By: #### 2 109442, 4149863, 2044390, 2747072, 1100244, 55009289 #### [facility] [address] [place] [address] Hemoglobin (Bld) [Mass/Vol] 10.2 g/dL Low 12.0-16.0 [facility] Comment on above: Performed By: #### 2 465539, 5603183, 9283250, 4540381, 5633462, 25485376 #### [facility] [address] [place] [address] MCH (RBC) [Entitic mass] 26.9 pg Low 27.0-34.0 [facility] Comment on above: Performed By: #### 2 151668, 9062648, 0238982, 0082504, 3029779, 29452811 #### [facility] [address] [place] [address] MCHC (RBC) [Mass/Vol] 33.3 g/dL Normal 31.4-36.0 [facility] Comment on above: Performed By: #### 2 166436, 1439221, 4599382, 8945308, 3567560, 83746656 #### [facility] [address] [place] [address] MCV (RBC) [Entitic vol] 80.6 fL Normal 80.0-100.0 [facility] Comment on above: Performed By: #### 2 476303, 5890384, 8163332, 8314031, 4109991, 50682908 #### [facility] [address] [place] [address] Platelet mean volume (Bld) [Entitic vol] 8.4 fL Normal 6.4-10.8 [facility] Comment on above: Performed By: #### 2 049439, 4064231, 0263629, 6484930, 6933589, 28527777 #### [facility] [address] [place] [address] Platelets (Bld) [#/Vol] 246.0 E9/L Normal 150.0-500.0 [facility] Comment on above: Performed By: #### 2 613933, 3199064, 6651013, 7481234, 3276054, 82941018 #### [facility] [address] [place] [address] RBC (Bld) [#/Vol] 3.8 E12/L Low 4.3-5.9 [facility] Comment on above: Performed By: #### 2 262179, 2899236, 0381955, 7439362, 8927643, 14325691 #### [facility] [address] [place] [address] WBC corrected for nucl RBC Auto (Bld) [#/Vol] 6.3 E9/L Normal 4.0-11.0 [facility] Comment on above: Performed By: #### 2 344533, 7294070, 0810303, 9111016, 7270904, 55714265 #### [facility] [address] [place] [address] Consent for Treatmenton Consent for Treatment [id number]. 00TIFF Normal [facility] Consent for Treatment [id number]#1.0 0TIFF Normal [facility] Consent for Treatment [id number]#1.0 0TIFF Normal [facility] Discharge Instructionson Discharge Instructions [id number] 0TIFF [facility] Discharge Instructions [id number] 0TIFF Normal [facility] ED Clinical Summaryon 2023 ED Clinical Summary [address] [address] ED Clinical Summary Person Information Name: ROLA AGUILAR Elena/[facility] Age: 28 Years : 1995 Sex: Female Language: Iraqi PCP: Kale RENDON MD Marital Status: Single Phone: [phone] Visit Id: Visit Reason: Rectal bleed; Nausea; Abdominal pain; ABDOMINAL PAIN / CROHN'S DISEASE Speciality: Acuity: 3 Enc Type: Emergency Med Service: Emergency Arrival: 10/01/2023 16:59:16 Discharge: 10/01/2023 21:04:00 LOS: 000 04:05 Checkin: 10/01/2023 16:59:16 Checkout: 10/01/2023 21:04:00 Dispo Type: Home (Routine DC) EVENTS: Event Name Event Status Request Date/Time Start Date/Time Complete Date/Time Arrive Complete 10/01/2023 16:59:16 10/01/2023 16:59:16 10/01/2023 16:59:16 Document Home Meds Request 10/01/2023 16:59:16 Triage Complete 10/01/2023 16:59:16 10/01/2023 17:11:47 10/01/2023 17:11:47 Registration Complete 10/01/2023 17:00:55 10/01/2023 17:00:55 10/01/2023 17:00:55 Reg Complete Request 10/01/2023 17:00:55 Reg Bed Request Complete 10/01/2023 17:00:56 10/01/2023 17:00:56 10/01/2023 17:00:56 Bed Assign Complete 10/01/2023 17:12:41 10/01/2023 17:12:41 10/01/2023 17:12:41 Dr Exam Complete 10/01/2023 17:12:41 10/01/2023 17:14:51 10/01/2023 17:14:51 RN Exam Complete 10/01/2023 17:12:41 10/01/2023 18:03:05 10/01/2023 18:03:05 Registration Request 10/01/2023 17:14:51 Meds Admin Complete 10/01/2023 17:25:54 10/01/2023 17:42:40 Pending Labs Complete 10/01/2023 17:25:54 10/01/2023 18:15:03 Lab Complete 10/01/2023 17:25:54 10/01/2023 18:15:03 Urine Collect Complete 10/01/2023 17:25:54 10/01/2023 18:15:03 Patient Care Complete 10/01/2023 17:25:54 10/01/2023 18:03:17 Pending Labs Complete 10/01/2023 17:36:34 10/01/2023 17:36:34 10/01/2023 17:54:42 Lab Complete 10/01/2023 17:36:34 10/01/2023 17:36:34 10/01/2023 17:54:42 Pending Labs Complete 10/01/2023 17:42:53 10/01/2023 17:42:53 10/01/2023 17:43:00 Lab Complete 10/01/2023 17:42:53 10/01/2023 17:42:53 10/01/2023 17:43:00 Pending Labs Inlab 10/01/2023 18:06:05 10/01/2023 18:06:05 Lab Inlab 10/01/2023 18:06:05 10/01/2023 18:06:05 Pending Labs Complete 10/01/2023 18:22:07 10/01/2023 18:22:07 10/01/2023 18:22:08 Meds Admin Complete 10/01/2023 18:33:04 10/01/2023 20:28:44 Dr Exam Complete 10/01/2023 19:03:35 10/01/2023 19:03:35 10/01/2023 19:03:35 Discharge Complete 10/01/2023 20:03:16 10/01/2023 21:04:09 10/01/2023 21:04:09 Meds Admin Complete 10/01/2023 20:18:12 10/01/2023 20:27:59 Transfer Complete 10/01/2023 21:04:09 10/01/2023 21:04:09 10/01/2023 21:04:09 ADDRESS: [address] [place] [address] [place] [id number] PHYS DOC NOTES: MEDICAL INFORMATION: Prescriptions Given: New Medications [id number], [address] [place] [id number], [phone] cephalexin (Keflex 500 mg Cap) 1 Capsules By Mouth every 12 hours for 7 Days. Refills: 0. Medications to Continue Taking That Have Changed [id number], [address] [place], [place] [id number], [phone] START: ondansetron (ondansetron 4 mg Dis Tab) 1 Tablets By Mouth every 6 hours for 3 Days. Refills: 0. Other Medications START: ondansetron (Zofran 4 mg Tab) 1 Tablets By Mouth every 8 hours as needed Nausea/Vomiting. Refills: 0. START: ondansetron (Zofran ODT 4 mg Tab-Dis) 1 Tablets By Mouth every 8 hours. Refills: 0. START: ondansetron (Zofran ODT 4 mg Tab-Dis) 1 Tablets By Mouth every 8 hours as needed Nausea/Vomiting. Refills: 0. Medications to Continue with No Changes Other Medications acetaminophen-hydrocod one ([place] 325 mg-5 mg oral tablet) 1 Tablets By Mouth every 6 hours as needed for pain. Refills: 0. acetaminophen-hydrocod one ([place] 325 mg-5 mg oral tablet) 1 Tablets By Mouth every 6 hours as needed for pain. Refills: 0. acetaminophen-oxycodon e (Percocet 325 mg-5 mg Tab) 1 Tablets By Mouth every 6 hours as needed as needed for pain. Refills: 0. acetaminophen-oxycodon e (Percocet 5 mg-325 mg oral tablet) 1 Tablets By Mouth every 6 hours. Refills: 0. acetaminophen-oxycodon e (Percocet 5 mg-325 mg oral tablet) 1 Tablets By Mouth every 6 hours. Refills: 0. acetaminophen-oxycodon e (Percocet 5 mg-325 mg oral tablet) 1 Tablets By Mouth every 6 hours. Refills: 0. hydrOXYzine (Vistaril 25 mg Tab) 1-2 tab(s) By Mouth 4 times a day as needed as needed for anxiety. Refills: 0. lurasidone (Latuda 20 mg oral tablet) 1 Tablets By Mouth every day. Refills: 0. metoclopramide (metoclopramide 10 mg oral tablet, disintegrating) 1 Tablets By Mouth every 6 hours as needed Nausea/Vomiting. Refills: 0. predniSONE (predniSONE 10 mg Tab) 4 tab(s) Oral Daily for 1 week, then 3 tablets oral daily for 1 week, then 2 tablets oral daily for 1 week then 1 tablet oral daily for 1 week. Refills: 0. promethazine (Phenergan 25 mg Supp) 1 Suppositories By rectum every 6 hours as needed Nausea/Vomiting. Refills: 0. promethazine (promethazine 25 mg Tab) 1 Tablets By Mouth every 6 hours as needed as needed for nausea/vomiting. Refills: 0. sertraline (Zoloft 50 mg Tab) 50 By Mouth ev (more content not included)... [facility] ED Note-Physicianon 10-01-19 ED Note-Physician Basic Information Time Seen: Ida ROMEO Harry 10/01/2023 17:14 Chief Complaint pt. is 35 weeks . , sees [facility], hx Crohns with ostomy c/o rectal bleeding with clots since 0200. nausea, no vomiting. has felt baby moving today. History of Present Illness 28 female presents emergency department with concerns for Crohn's flareup. Patient is 35 weeks and does have extensive history of Crohn's disease for which she follows with GI out of [facility] also follows with OB out of [facility]. She states over the last 24 hours she has developed abdominal cramping and some rectal bleeding with clots. She does have ileostomy and states that normally her stool ends up there but then occasionally she does have stool from her rectum as well. Once the clots started then she knew that this was in all likelihood a flareup of her Crohn's disease. She has had associated nausea denies any vomiting. Patient does not feel that this discomfort is related to the baby she states that she feels baby moving without any difficulty she reports no urinary symptoms no vaginal bleeding or discharge. She states normally when this happens she ends up coming to the hospital and needs fluids medication for pain nausea and steroids as well. We did have a conversation about risks and benefits of some of these medications in light of the fact that she is currently 35 weeks . Patient was seen initially upstairs in the OB department because of institutional policy and then was sent to the emergency department. No other aggravating or relieving factors no other associated symptoms no other prior treatments or complaints. Family: Reviewed and noncontributory Social: lives at home Review of systems negative unless otherwise specified in the HPI. Physical Exam Vitals & Measurements T: 36.8 ?C(Oral) HR: 99(Peripheral) RR: 18 BP: 125/82 SpO2: 97% HT: 167 cm WT: 91.8 kg BMI: 32.92 General: The patient appears well and in no apparent distress. Patient is resting comfortably on cart. Skin: Warm, dry, no pallor noted. Head: Normocephalic, atraumatic Neck: No JVD Eye: PERRLA, EOMI ENT: Moist mucus membranes Cardiovascular: Regular rate normal peripheral perfusion Respiratory: No respiratory distress no accessory muscle use no obvious audible wheezing Chest Wall: no deformity Musculoskeletal: normal ROM, no deformity, no swelling GI: Soft abdomen gravid uterus consistent with stated gestational age. Patient is diffusely tender to palpation and very limited exam due to the and her guarding against deep palpation because of her Crohn's and her pain. She does have right-sided ileostomy noted as well. Neurological: A&O moves all extremities equal strength and symmetry Psychiatric: Cooperative and appropriate Medical Decision Making Workup in the ER has been reviewed and noted. heart tones were 140 and strong and regular. Patient did have blood work here does reveal some dehydration with CO2 of 18 she is treated with IV fluids. Patient was also then treated with morphine for pain Zofran for nausea and Solu-Medrol for exacerbation of her Crohn's. We discussed risks and benefits of these medications especially in the setting of and patient was agreeable to these medications. She also was offered additional medications at home and stated that she will talk to her GI physician tomorrow and did not elect to have any steroids at this time. Urinalysis did have some positive findings given that she is we will cover her with antibiotics as well. Assessment/Plan Dehydration (E86.0: Dehydration) Exacerbation of Crohn's disease (K50.90: Crohn's disease, unspecified, without complications) UTI (urinary tract infection) (N39.0: Urinary tract infection, site not specified) Orders: cephalexin, 500 mg = 1 cap(s), Cap, Oral, Once, Stop date 10/01/23 18:32:00 EST, STAT, Start date 10/01/23 18:32:00 EST, 10/01/23 18:32:00 EST cephalexin, 500 mg = 1 cap(s), Oral, q12hr, X 7 day(s), # 14 cap(s), Refills(s) 0, [id number], cm, 10/01/23 17:11:00 EST, Height/Length Dosing, 91.8, kg, 10/01/23 17:11:00 EST, Weight Dosing methylPREDNISolone, 125 mg = 2 mL, Injection, IV Push, Once, Stop date 10/01/23 17:25:00 EST, STAT, Start date 10/01/23 17:25:00 EST, 10/01/23 17:25:00 EST morphine, 4 mg = 1 mL, Injection, IV Push, Once, Stop date 10/01/23 17:25:00 EST, STAT, Start date 10/01/23 17:25:00 EST, 10/01/23 17:25:00 EST ondansetron, 4 mg = 1 tab(s), Oral, q6hr, X 3 day(s), # 10 tab(s), Refills(s) 0, [id number] 167, cm, 10/01/23 17:11:00 EST, Height/Length Dosing, 91.8, kg, 10/01/23 17:11:00 EST, Weight Dosing ondansetron, 4 mg = 2 mL, Injection, IV Push, Once, Stop date 10/01/23 17:25:00 EST, STAT, Start date 10/01/23 17:25:00 EST, 10/01/23 17:25:00 EST Sodium Chloride 0.9% intravenous solution, 1,000 mL, Soln-IV, IV, Once, Stop date 10/01/23 17:25:00 EST, STAT, Start date 10/01/23 17:25:00 EST, Inf (more content not included)... [facility] Comment on above: Result Comment: Elec tronically Signed By: Alfred Graham DO\.br\Date and Time Signed: 10/01/23 21:17 EST\.br\Electronically Co-Signed By: Martha Pro CMA\.br\Date and Time Co-Signed: 10/07/23 07:54 EST ED Patient Education Noteon 10-01-2023 ED Patient Education Note Immunology Crohn's Disease Crohn's disease is a long-lasting (chronic) disease that affects the gastrointestinal (GI) tract. Crohn's disease often causes irritation and inflammation in the small intestine and the beginning of the large intestine, but it can affect any part of the GI tract. Crohn's disease is part of a group of illnesses that are known as inflammatory bowel disease (IBD). Crohn's disease may start slowly and get worse over time. Symptoms may come and go. They may also go away for months or even years at a time (remission). What are the causes? The exact cause of this condition is not known. It may involve a response that causes your body's disease-fighting system (immune system) to attack healthy cells and tissues (autoimmune response). Bacteria, genes, and your environment may also play a role. What increases the risk? The following factors may make you more likely to develop this condition: ? Having a family member who has Crohn's disease, another IBD, or an autoimmune condition. ? Using products that contain nicotine or tobacco, such as cigarettes and e-cigarettes. ? Being in your 20s. ? Having Eastern ancestry. What are the signs or symptoms? The main symptoms of this condition involve your GI tract. These include: ? Diarrhea. ? Pain or cramping in the abdomen commonly felt in the lower right side of the abdomen. ? Frequent watery or bloody stools. ? Constipation. This may mean having: ? Fewer bowel movements in a week than normal. ? Difficulty having a bowel movement. ? Stools that are dry, hard, or larger than normal. ? Rectal bleeding or pain. ? An urgent need to have a bowel movement. ? The feeling that you are not finished having a bowel movement. Other symptoms may include: ? Unexplained weight loss. ? Tiredness (fatigue). ? Fever. ? Nausea or appetite loss. ? Joint pain. ? Vision changes. ? Red bumps or sores on the skin. ? Sores inside the mouth. How is this diagnosed? This condition may be diagnosed based on: ? Your symptoms and medical history. ? A physical exam. ? Tests, which may include: ? Blood tests. ? Stool sample tests. ? Imaging tests, such as X-rays and CT scans. ? Tests to examine the inside of your intestines using a long, flexible tube that has a light and a camera on the end (colonoscopy). ? A procedure to remove tissue samples from inside your bowel for testing (biopsy). You may need to work with a health care provider who specializes in diseases of the digestive tract (clinical radiologist). How is this treated? There is no cure for this condition, and it affects each person differently. Treatment can help you manage your symptoms. Your treatment may include: ? Medicines. These may be used by themselves or with other treatments (combination therapy). You may be given medicines that help to: ? Reduce inflammation. ? Control your immune system activity. ? Fight infections. ? Relieve cramps and prevent diarrhea. ? Control your pain. ? Surgery. You may need surgery if: ? Medicines and other treatments are not working anymore. ? You develop complications from severe Crohn's disease. ? A section of your intestine becomes so damaged that it needs to be removed. ? Lifestyle changes: ? Maintaining eating or drinking restrictions. ? Reducing or eliminating use of alcohol or nicotine. Follow these instructions at home: Medicines ? Take qdgm-gll-pxggtzx and prescription medicines only as told by your health care provider. ? If you were prescribed an antibiotic, take it as told by your health care provider. Do not stop taking the antibiotic even if you start to feel better. ? Avoid taking ibuprofen or other NSAID medicines if possible. These can make Crohn's disease worse. Eating and drinking ? Talk with your health care provider or a registered dietitian about what diet is best for you. ? Drink enough fluid to keep your urine pale yellow. ? If you are taking steroids to reduce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 day of discharge. INFORMATION PROVIDED TO PATIENT: Please see patient discharge instructions WOUND/SURGICAL SITE CARE: Please see patient discharge instructions DIET: Please see patient discharge instructions ACTIVITY: Please see patient discharge instructions ALLERGIES Allergen Reactions Hydromorphone Itching DISCHARGE MEDICATION: Medication List START taking these medications metroNIDAZOLE 500 mg tablet Commonly known as: FLAGYL Take 1 tablet by mouth every 12 hours for 9 doses. oxyCODONE-acetaminophe n 5-325 mg tablet Commonly known as: PERCOCET Take 1 tablet by mouth every 4 hours as needed for pain. predniSONE 10 mg tablet Commonly known as: DELTASONE Take 4 tablets by mouth once daily for 7 days, THEN 3 tablets once daily for 7 days, THEN 2 tablets once daily for 7 days, THEN 1 tablet once daily for 7 days. Start taking on: August 30, 2023 CONTINUE taking these medications cyproheptadine 4 mg tablet Commonly known as: PERIACTIN Take 1 tablet by mouth three times a day as needed. metoclopramide HCl 10 mg tablet Commonly known as: REGLAN Take 1 tablet by mouth three times a day. ondansetron orally disintegrating 4 mg disintegrating tablet Commonly known as: ZOFRAN ODT VIT 86-[id number]-FUARV-DHA ORAL sertraline 50 mg tablet Commonly known as: ZOLOFT Take 1 tablet by mouth once daily. Where to Get Your Medications These medications were sent to [facility] [address] [place] [address] Hours: Saturday-Saturday: 7am-7pm, Sat: 9am-1pm metroNIDAZOLE 500 mg tablet oxyCODONE-acetaminophe n 5-325 mg tablet predniSONE 10 mg tablet FUTURE APPOINTMENTS: Future Appointments Date Time Provider Department Center 09/05/2023 9:20 AM Nae Costa MD [facility] 09/19/2023 2:20 PM Nae Costa MD [facility] 10/03/2023 9:50 AM Nae Costa MD [facility] 10/08/2023 3:50 PM Lilliana Costa (more content not included)... Normal [facility] CONSULT PROGon 08-23-2023 CONSULT PROG HNO ID: [id number] Author: Martha Quiñones APRN.JIMMY Service: Gastroenterology Author Type: Nurse Practitioner Type: Consult Progress Note Filed: 08/23/2023 3:05 PM Note Text: Brief GI progress note: S:Pt sitting up, dressed, with family member at bedside. Pt reports improvement in frequency and amount after IV steroids yesterday. O: Gen:awake,follows commands CVS: S1,S2+ RS: CTA b/l ABD: soft, +tenderness epigastric area-improving, BS+ EXT: no edema CBC, Coags, BMP, Mg, Phos Recent Labs 08/22/23 1041 WBC 2.90* HB 10.1* HCT 31.5* PLT 176 Liver Function, Amylase, AND Lipase Diagnostics Reviewed: MRI PELVIS/ABD WO IV CON:Active inflammation involving the ascending colon, transverse colon, and descending colon. Sparing of the rectum. No definite small bowel inflammation though examination limited due to gravid uterus. Assessment: Rola Aguilar is a 28 year old with a past medical history of crohn's disease with prolapsed loop ileostomy, anxiety, hyponatremia, hypomagnesemia, seasonal allergies, migraines and perianal abscess who presents for abdominal pain. The patient is and is 28w6d. GI was consulted for Crohn's, prolapsing stoma. #Crohn's disease in the small and large intestine with prolapsed loop ileostomy -CRP:2.2, sed rate: 44 -SS: fecal calprotectin: 77.1 Plan: -GI soft, bland, low fat/low fiber -will give IV solu-medrol 20 mg x 2 doses (now, then 2200), then will c/w prednisone 40 mg po daily 08/23 , decreasing by 10 mg weekly; does not appear to be on any other maintenance medications -Supportive care with pain control , such as tylenol limited to offer d/t -Of note, Prolapsed stoma, stable per patient, seen last admission by surgery with no surgical intervention warranted. Plan for peristoma hernia repair/reversal by Dr. Thakkar after -OP follow up with GI w/ Dr. Villa - SM sent 08/21 for discharge from GI standpoint Pt seen and examined with attending: Dr. Kandis Quiñones, [facility] Gastroenterology and Hepatology [phone] *Portions of Impression and Plan copied from previous day's GI Consult Note and updated as indicated* Normal [facility] NUTRITIONon 08-23-2023 NUTRITION HNO ID: [id number] Author: Mera Antunez RD Service: Nutrition Therapy Author Type: Registered Dietitian Type: Nutrition Filed: 08/23/2023 10:35 AM Note Text: NUTRITION THERAPY INITIAL ASSESSMENT SERVICE DATE: 08/23/2023 SERVICE TIME: 10:32 AM Nutrition Assessment: Recommended Malnutrition Diagnosis: Mild Protein-Calorie Malnutrition In the context of: Acute Illness or Injury Based on: Insufficient Energy Intake Nutrition Diagnosis: Problem: Suboptimal oral intake Related to: Acute illness As evidenced by: Medical condition, Patient/family self-report, Imaging studies Estimated kilocalorie needs: 2092 Calorie Calculation Method: (RMR + 452 kcal for third trimester) Estimated protein needs (grams): 105 Grams protein determined by: 20% of estimated energy needs Care Plan: Continue current diet (GI Soft. Low Fiber. Low Saturated Fat.) Vitamins and Minerals: () Medications: Anti-emetics Labs: Iron (Low level 8/9) Reviewed low fiber diet. Encouraged anti inflammatory fats. Pt with hx of Chrons and has had flares in the past. Familiar with diet recs. Pt with Primer protein at home. Offered Ensure max but pt ok with waiting until home to start shakes. Monitor and Evaluation: Meet greater than 75% of estimated needs, Monitor bowel function, Monitor labs, I/Os, vital signs, weight, Monitor fluid/electrolyte balance HPI obtained from Dolores Brown MD HANDP Note from 08/21/23 HPI: 28 year old EGA:28w5d. Presenting with abdominal pain in the setting of Crohn's disease with prolapsed loop ileostomy. Intake History: Nutrition Intake Prior to Admission: Less than 50% estimated energy needs (x 2 days. Worsening abdominal pain with diarrhea.) Current Nutrition Intake: Less than 50% estimated energy needs Current Intake Over time: (x 3 days. Pt continues to struggle with abdominal pain. Nausea waxes and wanes. Ostomy with liquid output and + for liquid BMs throughout the day yesterday.) Diet Orders (From admission, onward) Start Ordered 08/22/23 1515 DIET GASTRO INTESTINAL START NOW Question Answer Comment Gastro Intestinal FIBER CONTROLLED Gastro Intestinal LOW FAT 30 GM 08/22/23 1513 Anthropometrics: Height: 167.6 cm (5' 6 ) Weight: 89.4 kg (197 lb) Dosing Weight: 89.4 kg (197 lb 1.5 oz) Usual Weight: 93.2 kg (205 lb 6.4 oz) 02/04/23 (beginning of ) Usual Weight Obtained From: Chart Review Body mass index is 31.8 kg/m?. Weight change percentage over time: 4.1% wt loss x ~ 7 months Weight Change: Not clinically signficant weight loss (Would expect weight gain with ) Physical Exam: Subcutaneous fat loss: No fat loss Muscle loss: No muscle loss Potential micronutrient deficiency: No deficiency identified Edema/Ascites: No edema, No ascites GI Symptoms: Nausea, Abdominal pain, Anorexia, Diarrhea Ostomy Amount: Elevated Ostomy Consistency: Watery Stool Amount: Elevated Stool Consistency: Watery Functional Status: Unable to assess Potential Signs of Inflammation: Chronic condition, Hypoalbuminemia, Leukopenia, Imaging studies Chrons MNT Billing: $ Initial Assessment: 1-15 minutes SIGNATURE: Mera Antunez RD PATIENT NAME: Rola Aguilar DATE: August 23, 2023 TIME: 10:32 AM Normal [facility] CBC panel Auto (Bld)on 08-22 Erythrocyte distribution width (RBC) [Ratio] 13.7 % Normal 11.5-15.0 [facility] Comment on above: Order Comment: Speci men Type: BLOOD SPECIMEN Ordering Facility: [facility] Address: [place] [address] Performed By: #### 5 8410-2 #### [facility] CLIA [id number] [place] [address] [place] Hematocrit (Bld) [Volume fraction] 31.5 % Low 36.0-46.0 [facility] Comment on above: Order Comment: Speci men Type: BLOOD SPECIMEN Ordering Facility: [facility] Address: [address] [place] [address] Performed By: #### 5 8410-2 #### [facility] CLIA [id number] [address] [place] [address] [place] [facility] Hemoglobin (Bld) [Mass/Vol] 10.1 g/dL Low 11.5-15.5 [facility] Comment on above: Order Comment: Speci men Type: BLOOD SPECIMEN Ordering Facility: [facility] Address: [address] [place] [address] Performed By: #### 5 8410-2 #### [facility] CLIA [id number] [address] [place] [address] MCH (RBC) [Entitic mass] 28.9 pg Normal 26.0-34.0 [facility] Comment on above: Order Comment: Speci men Type: BLOOD SPECIMEN Ordering Facility: [facility] Address: [address] [place] [address] Performed By: #### 5 8410-2 #### [facility] CLIA [id number] [address] [place] [address] MCHC (RBC) [Mass/Vol] 32.1 g/dL Normal 30.5-36.0 [facility] Comment on above: Order Comment: Speci men Type: BLOOD SPECIMEN Ordering Facility: [facility] Address: [address] [place] [address] Performed By: #### 5 8410-2 #### [facility] CLIA [id number] [address] [place] [address] MCV (RBC) [Entitic vol] 90.0 fL Normal 80.0-100.0 [facility] Comment on above: Order Comment: Speci men Type: BLOOD SPECIMEN Ordering Facility: [facility] Address: [address] [place] [address] Performed By: #### 5 8410-2 #### [facility] CLIA [id number] [address] [place] [address] [place] Nucleated RBC (Bld) [#/Vol] 10*3/uL Normal <0.01 [facility] Comment on above: Order Comment: Speci men Type: BLOOD SPECIMEN Ordering Facility: [facility] Address: [address] [place] [address] Performed By: #### 5 8410-2 #### [facility] CLIA [id number] [address] [place] [address] [place] Platelet mean volume (Bld) [Entitic vol] 11.0 fL Normal 9.0-12.7 [facility] Comment on above: Order Comment: Speci men Type: BLOOD SPECIMEN Ordering Facility: [facility] Address: [address] [place] [address] Performed By: #### 5 8410-2 #### [facility] CLIA [id number] [address] [place] [address] [place] Platelets (Bld) [#/Vol] 176 10*3/uL Normal 150-400 [facility] Comment on above: Order Comment: Speci men Type: BLOOD SPECIMEN Ordering Facility: [facility] Address: [address] [place] [address] Performed By: #### 5 8410-2 #### [facility] CLIA [id number] [address] [place] [address] [place] RBC (Bld) [#/Vol] 3.50 10*6/uL Low 3.90-5.20 [facility] Comment on above: Order Comment: Speci men Type: BLOOD SPECIMEN Ordering Facility: [facility] Address: [address] [place] [address] Performed By: #### 5 8410-2 #### [facility] CLIA [id number] [address] [place] [address] [place] WBC (Bld) [#/Vol] 2.90 10*3/uL Low 3.70-11.00 [facility] Comment on above: Order Comment: Speci men Type: BLOOD SPECIMEN Ordering Facility: [facility] Address: [address] [place] [address] Performed By: #### 5 8410-2 #### [facility] CLIA [id number] [address] [place] [address] [place] CONSULT PROGon 08-22-2023 CONSULT PROG HNO ID: [id number] Author: Martha Quiñones APRN.GENERAL CLERK Service: Gastroenterology Author Type: Nurse Practitioner Type: Consult Progress Note Filed: 08/22/2023 3:23 PM Note Text: Brief GI progress note: S:Pt still complains of urgency and frequency of BM's, non-bloody. Mild nausea, intermittently. Tolerating full liquid diet. O: Gen:awake,follows commands CVS: S1,S2+ RS: CTA b/l ABD: soft, ++tenderness epigastric area, BS+ EXT: no edema CBC, Coags, BMP, Mg, Phos Recent Labs 08/22/23 1041 08/19/232005 WBC 2.90* 5.21 HB 10.1* 10.3* HCT 31.5* 31.3* PLT 176 231 NA -- 135* K -- 3.6* CHLOR -- 103 CO2 -- 18* BUN -- 6* CREAT -- 0.52* GLUC -- 74 CA -- 8.9 Liver Function, Amylase, AND Lipase Recent Labs 08/19/232005 TPROT 7.4 ALB 3.8* ALT 14 AST 17 ALKPHOS 98 TBILI 0.3 Diagnostics Reviewed: MRI PELVIS/ABD WO IV CON:Active inflammation involving the ascending colon, transverse colon, and descending colon. Sparing of the rectum. No definite small bowel inflammation though examination limited due to gravid uterus. Assessment: Rola Aguilar is a 28 year old with a past medical history of crohn's disease with prolapsed loop ileostomy, anxiety, hyponatremia, hypomagnesemia, seasonal allergies, migraines and perianal abscess who presents for abdominal pain. The patient is and is 28w6d. GI was consulted for Crohn's, prolapsing stoma. #Crohn's disease in the small and large intestine with prolapsed loop ileostomy -CRP:2.2, sed rate: 44 -SS: fecal calprotectin: 77.1 Plan: -GI soft, bland, low fat/low fiber -will give IV solu-medrol 20 mg x 2 doses (now, then 2200), then will start prednisone 40 mg po daily 08/23 , decreasing by 10 mg weekly (orders placed) -Supportive care with pain control , such as tylenol limited to offer d/t -Of note, Prolapsed stoma, stable per patient, seen last admission by surgery with no surgical intervention warranted. Plan for peristoma hernia repair/reversal by Dr. Thakkar after -OP follow up with GI w/ Dr. Villa - SM sent 08/21 -will follow along as needed, hopeful for discharge 08/23 Pt seen and examined with attending: Dr. Diana Quiñones, [facility] Gastroenterology and Hepatology [phone] *Portions of Impression and Plan copied from previous day's GI Consult Note and updated as indicated* Normal [facility] TYPE + SCREEN PRENATALon ABO B [facility] Comment on above: Order Comment: Speci men Type: BLOOD SPECIMENOrdering Facility: [facility] Address: [address] [place] [address] Performed By: #### T SPN ####[facility] [id number] [address] HISTORICAL AB SCR STATUS Negative [facility] Comment on above: Order Comment: Speci men Type: BLOOD SPECIMENOrdering Facility: [facility] Address: [address] [place] [address] Performed By: #### T SPN ####[facility] [id number] [address] [place] Rh Nom (Bld) Positive [facility] Comment on above: Order Comment: Speci men Type: BLOOD SPECIMENOrdering Facility: [facility] Address: [address] [place] [address] Performed By: #### T SPN ####[facility] [id number] [address] TYPE AND SCREEN EXPIRATION 08/25/2023 23:59 [facility] Comment on above: Order Comment: Speci men Type: BLOOD SPECIMENOrdering Facility: [facility] Address: [address] [place] [address] Performed By: #### T SPN ####[facility] [id number] [address] [place] Ciro 08-21-2023 CNPN Telephone (FVPRAD) ROLA AGUILAR ([id number]) 1995 F Date Time Provider Department 08/21/23 ANGEL JAQUEZ FVSIMON During your visit today, we recorded the following information about you: Angel Jaquez PA-C 08/21/2023 11:43 AM Signed Abhi! The patient is currently 29 weeks with crohn's disease. Most recent MRI showed active inflammation in the ascending, transverse and descending colon. She is hesitant about taking medications, however Dr. Humphries states she should be seen prior to her giving in 4-6 weeks. She lives in [place] so [place] ([place] or [place]) would be preferred. Please arrange accordingly. Thanks! Angel Jaquez PA-C Gastroenterology and Hepatology Briana Rose RN 08/21/2023 11:49 AM Signed Rosalba, can pt be scheduled with Dr. Villa in [place]?? Please advise. Thank you. SHAHBAZ Hood Jennifer RN 08/21/2023 3:27 PM Signed Ok to add on Sep 10 at 11:40 or maybe Aug 30 if needs seen sooner. Cirilo Villa Jr., DO Schedulers , please schedule patient per above notes. Thank you Mary Castro RN 08/22/2023 10:25 AM Signed Tried calling patient to add her to schedule. Although chart seems patient is admitted at this time. Allergies As of Date: 08/21/2023 Noted Allergy Reaction HYDROMORPHONE 05/26/2023 9 - Itching Date Reviewed: 08/21/2023 Reviewed by: Oxana Woody RN - Fully Assessed Reason for Visit: Follow Up [171] Cmt: Needs OV Prescriptions as of 04/23/2024 - vedolizumab (ENTYVIO PEN) 108 mg/0.68 mL pen Inject 108mg (1 pen) subcutaneously every other week. - predniSONE (DELTASONE) 20 mg tablet Take 1 tablet by mouth once daily. - vedolizumab (ENTYVIO PEN) 108 mg/0.68 mL pen Inject 108 mg (1 pen) subcutaneously every other week. Problem List As Of Date 08/21/2023 Noted Resolved Crohn's disease (regional enteritis) (HCC) [K50*08/22/2018 02/04/2023 Abdominal pain [R10.9] 09/10/2018 01/21/2023 Hypomagnesemia [E83.42] 09/11/2018 09/12/2018 Hyponatremia [E87.1] 09/11/2018 09/12/2018 Perineal abscess [L02.215] 09/09/2018 Malnutrition of mild degree (HCC) [E44.1] 09/11/2018 01/21/2023 Hypokalemia [E87.6] 09/12/2018 Crohn's colitis (HCC) [K50.10] 09/09/2018 02/04/2023 Obesity, Class II, BMI 35-39.9 [E66.9] 08/26/2020 History of creation of ostomy (HCC) [Z93.9] 01/22/2021 Crohn's disease of colon with complication (HCC*01/17/2023 History of endoscopy [Z98.890] 02/04/2023 07/04/2023 Imaging of gastrointestinal tract abnormal [R93*02/04/2023 13 weeks gestation of [Z3A.13] 04/30/2023 07/04/2023 Maternal Crohn's disease affecting in*04/30/2023 Obesity, Class I, BMI 30-34.9 [E66.9] 05/01/2023 Anxiety [F41.9] 07/04/2023 Abdominal pain affecting [O26.899, R1*07/26/2023 25 weeks gestation of [Z3A.25] 07/27/2023 08/01/2023 General counseling and advice for contraceptive*08/01/20 Abdominal pain [R10.9] 08/19/2023 Crohn's disease of both small and large intesti*08/20/2023 Crohn's disease of large intestine without comp*08/21/2023 Encounter Status:Closed by ANGEL JAQUEZ on 04/23/24 [facility] CONSULT PROGon 08-21-2023 CONSULT PROG HNO ID: [id number] Author: Shin Corcoran PA-C Service: Gastroenterology Author Type: Physician Global Program Manager Type: Consult Progress Note Filed: 08/21/2023 11:51 AM Note Text: Attestation signed by Navdeep Sethi MD at 08/22/2023 11:16 AM (Updated) . GI CONSULT PROGRESS NOTE SERVICE DATE: 08/21/2023 CONSULTING SERVICE: Gastroenterology Subjective INTERVAL HPI: - No acute events overnight - Afebrile, VSS, Hemodynamically stable - SED Rate, Fecal Calprotectin in progress - CRP 2.2; stable from 3-weeks ago - Abdominal pain present and improved since admission MRI ABD/PELVIS 08/20/23 IMPRESSION: Active inflammation involving the ascending colon, transverse colon, and descending colon. Sparing of the rectum. No definite small bowel inflammation though examination limited due to gravid uterus. Current Facility-Administered Medications Medication Dose Route Frequency ondansetron (PF) 4 mg injection (ZOFRAN) 4 mg INTRAVENOUS q 6 H PRN sertraline 50 mg tab(s) (ZOLOFT) 50 mg ORAL DAILY acetaminophen 1,000 mg tab(s) (TYLENOL) 1,000 mg ORAL Pre-Op PRN sodium citrate-citric acid 500-334 mg/5 mL 30 mL oral liquid (BICITRA) 30 mL ORAL Pre-Op PRN metoclopramide HCl 10 mg injection (REGLAN) 10 mg INTRAVENOUS Pre-Op PRN NaCl 0.9% iv flush bag 20 mL INTRAVENOUS PRN lactated ringers iv infusion 125 mL/hr INTRAVENOUS CONTINUOUS ondansetron (PF) 4 mg injection (ZOFRAN) 4 mg INTRAVENOUS q 6 H PRN promethazine 25 mg tab(s) (PHENERGAN) 25 mg ORAL q 6 H PRN acetaminophen 650 mg tab(s) (TYLENOL) 650 mg ORAL q 4 H PRN oxyCODONE IR 5 mg tab(s) (ROXICODONE) 5 mg ORAL q 4 H PRN morphine 2 mg injection 2 mg INTRAVENOUS q 4 H PRN ceFAZolin 3 g in D5W 100 mL (ANCEF) 3 g INTRAVENOUS Pre-Op PRN azithromycin 500 mg in D5W 250 mL Vial-Bag (ZITHROMAX) 500 mg INTRAVENOUS Pre-Op PRN famotidine 20 mg injection (PEPCID) 20 mg INTRAVENOUS BID metoclopramide HCl 10 mg injection (REGLAN) 10 mg INTRAVENOUS q 6 H PRN metroNIDAZOLE 500 mg tab(s) (FLAGYL) 500 mg ORAL q 8 H Objective PHYSICAL EXAM: General: AANDO x3, no acute distress, ambulating from bathroom HEENT: Normocephalic, atraumatic, non-icteric sclera Lungs: Clear, no wheezing, rhonchi or rales, no use of accessory muscles Cardiac: RRR Abdomen: soft, ostomy clear dry intact with brown stool output Extremities: mild pedal edema bilateral BP 113/63 Pulse 63 Temp (Src) 98.1 (Oral) Resp 20 Ht 5' 6 (1.68m) Wt 197 lb (89.4kg) SpO2 98% LMP 01/30/2023 BMI 31.81 kg/(m2). O2 Therapy: Room Air DATA: Diagnostic tests reviewed for today's visit: Most recent labs and imaging results. Impression/Recommendat ions Crohn's Disease Abdominal Pain - Clear liquid diet with advancement as tolerated - Pepcid for GERD symptoms - Pain control PRN - Has previously been on Pentasa, Imuran, and multiple biologics; was recently preparing for Remicade initiation prior to - Will continue symptomatic control with recommended follow-up 4-6 weeks prior to due date. - Patient is able to follow up at [facility], [place] or [place] locations if preferred over local GI in [place] Case to be discussed with GI Staff GI will continue to follow SIGNATURE: Shin Corcoran PA-C PATIENT NAME: Rola Aguilar DATE: August 21, 2023 TIME: 8:31 AM Normal [facility] ESR Westergren method (Bld) [Velocity]on 08-21-2023 ESR (Bld) [Velocity] 44 mm/h High 0-20 [facility] Comment on above: Order Comment: Speci men Type: BLOOD SPECIMEN Ordering Facility: [facility] Address: [address] [place] [address] Performed By: #### 4 537-7 #### [facility] CLIA [id number] [address] [facility] [address] OF [facility] ALLIED HEALTHon 08-20-2023 ALLIED HEALTH HNO ID: [id number] Author: Kristyn Rodriges RT(Georges) Service: Radiology Author Type: Technologist Type: Allied Health Filed: 08/20/2023 3:17 PM Note Text: Radiology Service Progress Note PATIENT NAME: Rola Aguilar DATE OF SERVICE: August 20, 2023 TIME: 3:16 PM PATIENT IDENTITY VERIFICATION COMPLETED USING TWO (2) IDENTIFIERS: Name and Date of confirmed by patient verbally and Name and Date of confirmed by identification band. FALL SCREENING: Has the patient had 2 falls in the last year or 1 fall with injury or currently using an Ambulatory Assistive Device (Walker, Cane, Wheelchair, Crutches, etc.)? Emergency Room Patient: Screened in ED PATIENT GENDER DATA: Female. status: : Yes. Internal Quality Check OK. Reference Range: Negative status: NO. PATIENT RELEVANT IMPLANT DATA REVIEWED: Yes RADIOLOGY DEPARTMENT: MR; Exam(s) Completed: Body: appendix screening in a female PERIPHERAL IV DATA: Not applicable SIGNED BY: RT Bryant(R) August 20, 2023 3:16 PM [facility] CONSULTon 08-20-2023 CONSULT HNO ID: [id number] Author: Raffy Pardo RN Service: ? Author Type: Registered Nurse Type: Consults Filed: 08/20/2023 2:09 PM Note Text: ANCILLARY OSTOMY CARE PROGRESS NOTE SERVICE DATE: 08/20/2023 SERVICE TIME: 1200 RE: stoma prolapse - The pt was seen today by the ostomy team d/t known prolapse of her diverting loop ileostomy that was created in 2018 d/t Crohns. The patient is 26w6d . -Prolapsed stoma that is producing stool, stable per patient, seen last admission by surgery with no surgical intervention warranted. Plan for peristoma hernia repair/reversal by Dr. Thakkar after . The pt is independent with her ostomy care and brought pouches from home, but forgot some of the accessories. Pt provided with enough Brava rings to change her ostomy pouch while here. Pt uses Coloplast Junior pouches and a Brava ring or ostomy paste. No other needs at this time. May re-consult if needs arise. SIGNATURE: aRffy Pardo RN PATIENT NAME: Rola Aguilar DATE: August 20, 2023 TIME: 2:04 PM PAGER/CONTACT #: [phone] [facility] CONSULT HNO ID: [id number] Author: Angel Jaquez PA-C Service: Gastroenterology Author Type: Physician Global Program Manager Type: Consults Filed: 08/20/2023 2:42 PM Note Text: Gastroenterology Consult Service Date of Service August 20, 2023 Patient: Rola Aguilar Medical Record: [id number] Reason for Consult: Crohn's, prolapsing stoma Requesting Service: GIM Consultation requested by Dr. Navdeep Sethi for an opinion regarding Crohn's, prolapsing stoma. My final recommendations will be communicated back to the requesting physician by way of shared medical record. CC: Abdominal pain History of Present Illness: Rola Aguilar is a 28 year old with a past medical history of crohn's disease with prolapsed loop ileostomy, anxiety, hyponatremia, hypomagnesemia, seasonal allergies, migraines and perianal abscess who presents for abdominal pain. The patient is and is 28w6d. GI was consulted for Crohn's, prolapsing stoma. Per chart review, the patient was diagnosed with severe crohn's disease in 2013 and was treated with PDN and ADA from 9779-8364. The patient lost response to development of antibodies and then she lost her insurance between 1222-0982 which resulted in her not on treatment. She developed a perianal abscess and underwent loop ileostomy in 2018. She has not been on any medications since then. She had a discharge on for abdominal pain, bleeding and stool per rectum. She underwent an MRE and MRI pelvis followed by an ileoscopy/colonoscopy showing active inflammation involving small and large intestine. The patient has an appointment with Dr. Thakkar next month. The patient was last seen by GI on 07/27/2023 for acute on chronic abdominal pain with associated N/V. Recommended CORS follow-up and GI follow-up to discuss medical management post-. Steroids were not recommended as they have not aided in Gi symptoms and only made the patient anxious. In addition, the patient was very anxious about the potential side effects. MR study was recommended if symptoms return. The patient states worsening abdominal pain over the last 2 days located around the stoma and near her umbilicus. She describes the pain as cramping and rates it currently 4/10. At the moment, the pain is improved, however at times the pain is 8/10. The pain is non-radiating. The pain is improved with bearing down on the commode. Pain is not associated with eating/drinking. She notes nausea with vomiting with last emesis yesterday. She notes heart burn with regurgitation, however she usually drinks milk and her symptoms resolves. She is on Pepcid currently in the hospital and it is helping. She notes minimal stool output via rectum but she has noticed pinkish colored stools. She thinks it is due to hemorrhoids. She states her stools are more loose than usual. Typically she will have 3 bowel movements per rectum a day but recently she was having one every 30 minutes. She has output from her stoma that is liquid to a pudding like consistency. She last emptied her bag last night. She typically empties the bag 3-4 times a day and states no increased output via stoma. She notes intermittent early satiety. She denies hematemesis, dysphagia, odynophagia, chest pain, shortness of breath, constipation, diarrhea, melena, fevers, chills, night sweats, chest pain, shortness of breath, rashes, changes in weight including weight loss, eye pain, changes in vision, joint pain or loss of appetite. She denies daily blood thinners or NSAIDs. She states she thinks her great great grandmother had colon cancer but no other family members with GI cancers. She denies any family history of IBD. She was diagnosed in 2013. She tried Pentasa initially and once improved by insurance she switched to Humira. Then she developed antibiotics and was put on Stelara. She states Stelara initially worked but then she efficacy wore off. She was then placed on Imuran and was supposed to be on Remicade at the same time (pending insurance), however she found out she was and did not continue medication. She saw Dr. Thakkar with surgery on 2023 and he was recommending repair of her peristoma hernia with reversal of stoma after she gives . She states she has not made an appointment yet with GI as she does not want to go back to [facility] and prefers seeing her old GI practice in [place]. She is unsure her last Crohn's flare, however she notes when she gets a flare she typically will have flu-like symptoms. She has not been experiencing this recently. She has not seen an eye doctor, recreation attendant or gang tailer due to insurance issues. She was advised it is important to see these providers in the setting of intra-intestinal manifestations that can occur with Crohn's. Past Medical History: PAST MEDICAL HISTORY Diagnosis Date Crohn's disease (HCC) History of transfusion Migraine with aura (more content not included)... Normal [facility] CONSULT HNO ID: [id number] Author: Mildred Fernandez MD Service: Obstetrics Author Type: Resident Type: Consults Filed: 08/20/2023 7:19 AM Note Text: Attestation signed by Navdeep Sethi MD at 08/21/2023 4:59 PM MFM Attending Note I saw and evaluated the patient. 28 year old EGA:28w6d Presenting with abdominal pain in the setting of Crohn's disease with prolapsed loop ileostomy.28 year old EGA:29 wd0 Presenting with abdominal pain in the setting of Crohn's disease with prolapsed loop ileostomy. Patient does not have any acute complaint today. She is tolerating her liquid diet well. She denies any nausea or vomiting or diarrhea. No signs or symptoms of bowel obstruction. Abdomen is soft and nontender no signs of peritonitis or peritonism. MR I of the abdomen showed an signs of inflammatory bowel disease however no specific signs of bowel obstruction. We will advance her diet to full clear liquid diet. We will discuss further diet regimen with the GIT team. Her abdominal pain likely due to scarring/adhesions or impaired bowel motility. Patient reported significant improvement. Plan to discharge home tomorrow. BP 111/65 Pulse 78 Temp 36.7 ?C (98.1 ?F) (Oral) Resp 16 Ht 167.6 cm (5' 6 ) Wt 89.4 kg (197 lb) LMP 01/30/2023 (Exact Date) SpO2 97% BMI 31.80 kg/m? CBC, Coags, BMP, Mg, Phos Recent Labs 08/19/232005 WBC 5.21 HB 10.3* HCT 31.3* PLT 231 NA 135* K 3.6* CHLOR 103 CO2 18* BUN 6* CREAT 0.52* GLUC 74 CA 8.9 Liver Function, Amylase, AND Lipase Recent Labs 08/19/232005 TPROT 7.4 ALB 3.8* ALT 14 AST 17 ALKPHOS 98 TBILI 0.3 Navdeep Sethi MD Maternal Medicine / Medical Genetics OBSTETRICS ANTEPARTUM CONSULT NOTE SERVICE DATE: 08/20/2023 SERVICE TIME: 7:17 AM Assessment AND Plan : 28 year old EGA:28w6d Presenting with abdominal pain in the setting of Crohn's disease with prolapsed loop ileostomy. Abdominal Pain Crohn's Disease Prolapsed Stoma - possible ddx includes crohn's flare, low suspicion for incarcerated stoma given well perfused on exam. Last crohn's flare Apr 2023 - per pt stoma prolapse not worsened from prior. Evaluated by surgery last admission and no surgical intervention warranted - stoma functioning - stoma team consult - morphine PRN - outpatient with [facility] with plans to reverse after delivery - GI consult; consider MR imaging per last admission's recs - cx FT; no contractions on toco. Suspicion low for PTL - admit to antepartum for further workup and pain control Vaginal Bleeding - in the setting of friable cervix; no bleeding from os visualized - 07/08 sono: posterior fundal placenta - has hx of occasional rectal bleeding, no obvious - 0.5/50/-3 - vaginitis, GC,CT swabs collected MDD/PARMINDER - home zoloft Routine OB - PNL reviewed: B+/Hep B neg/Hep C neg/HIV neg/GC,CT neg/RI/syphilis neg - 3rd tri labs not yet done, no Tdap yet - growth on anatomy sono 07/08: EFW 92%, AC 91% - consents: signed 07/29/23 - presentation: breech - daily NST Plan of care discussed with: Provider, RN, Patient. Subjective : Improved abdominal pain overnight was able to sleep. No current vaginal bleeding, No current leaking of fluid, No contractions, Good movement, No shortness of breath or chest pain, and No calf tenderness Objective : LAST VITALS: Pulse BP Resp O2 Sat Temp Pain 68 97/54 18 98 % 36.4 ?C (97.5 ?F) 2 PHYSICAL EXAM: General: WD, WN Heart: RR Lungs: comfortable on room air Abdomen: soft, nontender, non peritonitic, ostomy with brown output. Ostomy pink, non tender to palpation through bag Extremities: no edema MONITORING/ASSESSMENT: Non-stress test pending LABS Diagnostic tests reviewed for today's visit: Most recent labs and imaging results. SIGNATURE: Mildred Fernandez MD PATIENT NAME: Rola Aguilar DATE: 08/20/2023 TIME: 7:17 AM Normal [facility] Calprotectin (Stl) [Mass/Mas s]on 08-20-2023 CALPROTECTIN, FECAL QUANTITATIVE 77.1 ug/g High <50 [facility] Comment on above: Order Comment: Speci men Type: BLOOD SPECIMEN Ordering Facility: [facility] Address: [address] [place] [address] Performed By: #### 2 4323-8, 3040-3 #### [facility] CLIA [id number] OF [facility] MRI ABDOMEN WO IVCONon 08-20 MRI ABDOMEN WO IVCON * * *Final Report* * * DATE OF EXAM: Aug 20 2023 3:32PM FVM 0688 - MRI ABDOMEN WO IVCON / PROCEDURE REASON: RLQ abdominal pain () * * * * Physician Interpretation * * * * MRI ABDOMEN WO IVCON, MRI PELVIS WO IVCON INDICATION: RLQ abdominal pain () COMPARISON: MR enterography 01/20/2023 TECHNIQUE: Multiple and multisequence imaging of the abdomen and pelvis was performed without IV contrast due to the patient's gravid state. RESULT: Emanation limited due to absence of IV contrast and bowel under distention. Mild wall thickening and T2 hyperintense signal extending from the right colon continuously to the sigmoid colon. No involvement of the rectum. Right lower quadrant diverting loop ileostomy. Appendix is not visualized though no inflammatory changes in the expected region of the appendix. Visualized liver, spleen, pancreas, and bile ducts are unremarkable. Mild right hydronephrosis secondary to gravid uterus. No left-sided hydronephrosis. Examination not tailored for assessment of the assessment of the gravid uterus or fetus. IMPRESSION: Active inflammation involving the ascending colon, transverse colon, and descending colon. Sparing of the rectum. No definite small bowel inflammation though examination limited due to gravid uterus. Blast Hole Driller: MARK Transcribe Date/Time: Aug 20 2023 3:36P Dictated by : MARICHUY STPEHENS MD This examination was interpreted and the report reviewed and electronically signed by: MARICHUY STEPHENS MD on Aug 20 2023 3:55PM EST [id number] Normal [facility] MRI PELVIS WO IVCONon 2022 MRI PELVIS WO IVCON * * *Final Report* * * DATE OF EXAM: Aug 20 2023 3:32PM FVM 0741 - MRI PELVIS WO IVCON / PROCEDURE REASON: RLQ abdominal pain () * * * * Physician Interpretation * * * * MRI ABDOMEN WO IVCON, MRI PELVIS WO IVCON INDICATION: RLQ abdominal pain () COMPARISON: MR enterography 01/20/2023 TECHNIQUE: Multiple and multisequence imaging of the abdomen and pelvis was performed without IV contrast due to the patient's gravid state. RESULT: Emanation limited due to absence of IV contrast and bowel under distention. Mild wall thickening and T2 hyperintense signal extending from the right colon continuously to the sigmoid colon. No involvement of the rectum. Right lower quadrant diverting loop ileostomy. Appendix is not visualized though no inflammatory changes in the expected region of the appendix. Visualized liver, spleen, pancreas, and bile ducts are unremarkable. Mild right hydronephrosis secondary to gravid uterus. No left-sided hydronephrosis. Examination not tailored for assessment of the assessment of the gravid uterus or fetus. IMPRESSION: Active inflammation involving the ascending colon, transverse colon, and descending colon. Sparing of the rectum. No definite small bowel inflammation though examination limited due to gravid uterus. Blast Hole Driller: [facility] Transcribe Date/Time: Aug 20 2023 3:36P Dictated by : MARICHUY STEPHENS MD This examination was interpreted and the report reviewed and electronically signed by: MARICHUY STEPHENS MD on Aug 20 2023 3:55PM EST [id number] Normal [facility] BACTERIAL VAGINOSIS NAATon 1 10-19-2022 Lactobacillus crispatus+gasseri+je nsenii + Gardnerella vaginalis + Atopobium vaginae rRNA CORONA+probe Ql (Vag fld) Positive Abnormal Negative for bacterial vaginosis [facility] Comment on above: Order Comment: Speci men Type: BLOOD SPECIMEN Ordering Facility: [facility] Address: [address] [place] [address] Performed By: #### 2 4323-8, 3040-3 #### [facility] CLIA [id number] [address] [place] [address] [place] C. trachomatis+N. gonorrhoea e DNA CORONA+probe Ql (Unsp spec)on 08-19-2023 C. trachomatis rRNA CORONA+probe Ql (Unsp spec) Negative Normal Negative for Chlamydia trachomatis by amplificaton [facility] Comment on above: Order Comment: Speci men Type: BLOOD SPECIMEN Ordering Facility: [facility] Address: [address] [place] [address] Performed By: #### 2 4323-8, 3040-3 #### [facility] CLIA [id number] [address] [place] [address] [place] N. gonorrhoeae rRNA CORONA+probe Ql (Unsp spec) Negative Normal Negative for Neisseria gonorrhoeae by amplification [facility] Comment on above: Order Comment: Speci men Type: BLOOD SPECIMEN Ordering Facility: [facility] Address: [address] [place] [address] Performed By: #### 2 4323-8, 3040-3 #### [facility] CLIA [id number] [address] [place] [address] [place] JOSE/TRICHOMONAS NAATon 1 10-19-2022 C. glabrata RNA CORONA+probe Ql (Vag fld) Negative Normal Negative for Jose glabrata [facility] Comment on above: Order Comment: Speci men Type: SWABOrdering Facility: [facility] Address: [address] [place] [address] Performed By: #### C VTV ####[facility] LABCLIA [id number] [place] [address] [place] Jose sp DNA CORONA+probe Ql (Vag fld) Negative Normal Negative for Jose species [facility] Comment on above: Order Comment: Speci men Type: SWABOrdering Facility: [facility] Address: [address] [place] [address] Performed By: #### C VTV ####[facility] LABCLIA [id number] [place] [address] [place] T. vaginalis DNA CORONA+probe Ql (Unsp spec) Negative Normal Negative for Trichomonas vaginalis by amplification [facility] Comment on above: Order Comment: Speci men Type: SWABOrdering Facility: [facility] Address: [address] [place] [address] Performed By: #### C VTV ####[facility] LABCLIA [id number] [facility] [id number] [address] [place] CBC panel Auto (Bld)on 08-19 Erythrocyte distribution width (RBC) [Ratio] 13.9 % Normal 11.5-15.0 [facility] Comment on above: Order Comment: Speci men Type: BLOOD SPECIMEN Ordering Facility: [facility] Address: [address] [place] [address] Performed By: #### 2 4323-8, 0-3 #### [facility] CLIA [id number] [address] [place] [address] [place] Hematocrit (Bld) [Volume fraction] 31.3 % Low 36.0-46.0 [facility] Comment on above: Order Comment: Speci men Type: BLOOD SPECIMEN Ordering Facility: [facility] Address: [address] [place] [address] Performed By: #### 2 4323-8, 0-3 #### [facility] CLIA [id number] [address] [place] [address] [place] Hemoglobin (Bld) [Mass/Vol] 10.3 g/dL Low 11.5-15.5 [facility] Comment on above: Order Comment: Speci men Type: BLOOD SPECIMEN Ordering Facility: [facility] Address: [address] [place] [address] Performed By: #### 2 4323-8, 3040-3 #### [facility] CLIA [id number] [address] [place] [address] [place] MCH (RBC) [Entitic mass] 28.8 pg Normal 26.0-34.0 [facility] Comment on above: Order Comment: Speci men Type: BLOOD SPECIMEN Ordering Facility: [facility] Address: [address] [place] [address] Performed By: #### 2 4323-8, 0-3 #### [facility] CLIA [id number] [address] [place] [address] [place] MCHC (RBC) [Mass/Vol] 32.9 g/dL Normal 30.5-36.0 [facility] Comment on above: Order Comment: Speci men Type: BLOOD SPECIMEN Ordering Facility: [facility] Address: [address] [place] [address] Performed By: #### 2 4323-8, 0-3 #### [facility] CLIA [id number] [address] [place] [address] [place] MCV (RBC) [Entitic vol] 87.4 fL Normal 80.0-100.0 [facility] Comment on above: Order Comment: Speci men Type: BLOOD SPECIMEN Ordering Facility: [facility] Address: [address] [place] [address] Performed By: #### 2 4328, 3039-3 #### [facility] CLIA [id number] [address] [place] [address] [place] Nucleated RBC (Bld) [#/Vol] 10*3/uL Normal <0.01 [facility] Comment on above: Order Comment: Speci men Type: BLOOD SPECIMEN Ordering Facility: [facility] Address: [address] [place] [address] Performed By: #### 2 4323-8, 0-3 #### [facility] CLIA [id number] [address] [place] [address] [place] Platelet mean volume (Bld) [Entitic vol] 11.3 fL Normal 9.0-12.7 [facility] Comment on above: Order Comment: Speci men Type: BLOOD SPECIMEN Ordering Facility: [facility] Address: [address] [place] [address] Performed By: #### 2 4323-8, 0-3 #### [facility] CLIA [id number] [address] [place] [address] [place] Platelets (Bld) [#/Vol] 231 10*3/uL Normal 150-400 [facility] Comment on above: Order Comment: Speci men Type: BLOOD SPECIMEN Ordering Facility: [facility] Address: [address] [place] [address] Performed By: #### 2 4323-8, 3040-3 #### [facility] CLIA [id number] [address] [place] [address] [place] RBC (Bld) [#/Vol] 3.58 10*6/uL Low 3.90-5.20 [facility] Comment on above: Order Comment: Speci men Type: BLOOD SPECIMEN Ordering Facility: [facility] Address: [address] [place] [address] Performed By: #### 2 4323-8, 3040-3 #### [facility] CLIA [id number] [address] [place] [address] [place] WBC (Bld) [#/Vol] 5.21 10*3/uL Normal 3.70-11.00 [facility] Comment on above: Order Comment: Speci men Type: BLOOD SPECIMEN Ordering Facility: [facility] Address: [address] [place] [address] Performed By: #### 2 4323-8, 3040-3 #### [facility] CLIA [id number] [address] [place] [address] OF [facility] Ciro 08-19-2023 CNPN Telephone (JUAN) ROLA AGUILAR ([id number]) 1995 F Date Time Provider Department 08/19/23 NAE OCSTA During your visit today, we recorded the following information about you: Jordin Carey RN 08/19/2023 12:01 PM Signed Receive call from patient who was identified by name and . 28.5 wga. Reports intermittent cramping over last 2 days. Reports pain is around umbilicus, rates 8/10, took 500mg of Tylenol at 0930 with no relief. Also reports scant amount of red/pink bleeding when wiping. Denies clots. Denies LOF or decreased FM. Reports drinking 32oz of water so far today. Reports 1 episode of vomiting this morning. Denies recent sexual intercourse. Reports h/o Crohn's, has ileostomy. Patient states unsure if cramping is r/t Crohn's or if bleeding is from rectum d/t small amount. Recommended patient call back with worsening bleeding or cramping, or with LOF or decreased FM. Recommended increase hydration. Message forwarded to floor coverings salesperson provider. SHAHBAZ Vences Rachel, RN 08/19/2023 12:20 PM Signed Discussed with Dr. Valderrama in person. Per Dr. Valderrama, patient should go to OB triage for evaluation. Call place to patient who was identified by name and . Patient notified of Dr. Valderrama's message. Patient verbalized understanding and states has no questions at this time. 3S notified, report given to Aimee. Jordin Carey RN Allergies As of Date: 08/19/2023 Noted Allergy Reaction HYDROMORPHONE 05/26/2023 9 - Itching Date Reviewed: 2023 Reviewed by: Cyn Campbell LPN - Fully Assessed Reason for Visit: cramping [Other] Bleeding With [58287] Prescriptions as of 08/19/2023 - sertraline (ZOLOFT) 50 mg tablet Take 1 tablet by mouth once daily. - VIT 11-BQXF-KASAM-DHA ORAL Take by mouth. - cyproheptadine (PERIACTIN) 4 mg tablet Take 1 tablet by mouth three times a day as needed. - metoclopramide HCl (REGLAN) 10 mg tablet Take 1 tablet by mouth three times a day. - ondansetron orally disintegrating (ZOFRAN ODT) 4 mg disintegrating tablet TAKE 1 TABLET BY MOUTH EVERY 8 HOURS NEEDED FOR NAUSEA AND VOMITING Problem List As Of Date 08/19/2023 Noted Resolved Crohn's disease (regional enteritis) (HCC) [K50*08/22/2018 02/04/2023 Abdominal pain [R10.9] 09/10/2018 01/21/2023 Hypomagnesemia [E83.42] 09/11/2018 09/12/2018 Hyponatremia [E87.1] 09/11/2018 09/12/2018 Perineal abscess [L02.215] 09/09/2018 Malnutrition of mild degree (HCC) [E44.1] 09/11/2018 01/21/2023 Hypokalemia [E87.6] 09/12/2018 Crohn's colitis (HCC) [K50.10] 09/09/2018 02/04/2023 Obesity, Class II, BMI 35-39.9 [E66.9] 08/26/2020 History of creation of ostomy (HCC) [Z93.9] 01/22/2021 Crohn's disease of colon with complication (HCC*01/17/2023 History of endoscopy [Z98.890] 02/04/2023 07/04/2023 Imaging of gastrointestinal tract abnormal [R93*02/04/2023 13 weeks gestation of [Z3A.13] 04/30/2023 07/04/2023 Maternal Crohn's disease affecting in*04/30/2023 Obesity, Class I, BMI 30-34.9 [E66.9] 05/01/2023 Anxiety [F41.9] 07/04/2023 Abdominal pain affecting [O26.899, R1*07/26/2023 25 weeks gestation of [Z3A.25] 07/27/2023 08/01/2023 General counseling and advice for contraceptive*08/01/20 Encounter Status:Closed by JORDIN CAREY on 08/19/23 Normal [facility] CRP SerPl-mCncon 08-19-2023 CRP [Mass/Vol] 2.2 mg/dL High <0.9 [facility] Comment on above: Order Comment: Speci men Type: BLOOD SPECIMEN Ordering Facility: [facility] Address: [address] [place] [address] Performed By: #### 2 4323-8, 3040-3 #### [facility] CLIA [id number] [address] [place] [address] [place] Comprehensive metabolic 2000 panelon 08-19-2023 Albumin [Mass/Vol] 3.8 g/dL Low 3.9-4.9 [facility] Comment on above: Order Comment: Speci men Type: BLOOD SPECIMEN Ordering Facility: [facility] Address: [address] [place] [address] Performed By: #### 2 4323-8, 3040-3 #### [facility] CLIA [id number] [address] [place] [address] [place] ALP [Catalytic activity/Vol] 98 U/L Normal 34-123 [facility] Comment on above: Order Comment: Speci men Type: BLOOD SPECIMEN Ordering Facility: [facility] Address: [address] [place] [address] Performed By: #### 2 4323-8, 3040-3 #### [facility] CLIA [id number] [address] [place] [address] [place] ALT [Catalytic activity/Vol] 14 U/L Normal 7-38 [facility] Comment on above: Order Comment: Speci men Type: BLOOD SPECIMEN Ordering Facility: [facility] Address: [address] [place] [address] Performed By: #### 2 4323-8, 3040-3 #### [facility] CLIA [id number] [address] [place] [address] [place] Anion gap [Moles/Vol] 14 mmol/L Normal 9-18 [facility] Comment on above: Order Comment: Speci men Type: BLOOD SPECIMEN Ordering Facility: [facility] Address: [address] [place] [address] Performed By: #### 2 4323-8, 3040-3 #### [facility] CLIA [id number] [address] [place] [address] [place] AST [Catalytic activity/Vol] 17 U/L Normal 13-35 [facility] Comment on above: Order Comment: Speci men Type: BLOOD SPECIMEN Ordering Facility: [facility] Address: [address] [place] [address] Performed By: #### 2 4323-8, 3040-3 #### [facility] CLIA [id number] [address] [place] [address] [place] Bilirubin [Mass/Vol] 0.3 mg/dL Normal 0.2-1.3 [facility] Comment on above: Order Comment: Speci men Type: BLOOD SPECIMEN Ordering Facility: [facility] Address: [address] [place] [address] Performed By: #### 2 4323-8, 0-3 #### [facility] CLIA [id number] [address] [place] [address] [place] Calcium [Mass/Vol] 8.9 mg/dL Normal 8.5-10.2 [facility] Comment on above: Order Comment: Speci men Type: BLOOD SPECIMEN Ordering Facility: [facility] Address: [address] [place] [address] Performed By: #### 2 4323-8, 0-3 #### [facility] CLIA [id number] [address] [place] [address] [place] Chloride [Moles/Vol] 103 mmol/L Normal 97-105 [facility] Comment on above: Order Comment: Speci men Type: BLOOD SPECIMEN Ordering Facility: [facility] Address: [address] [place] [address] Performed By: #### 2 4323-8, 0-3 #### [facility] CLIA [id number] [address] [place] [address] [place] CO2 [Moles/Vol] 18 mmol/L Low 22-30 [facility] Comment on above: Order Comment: Speci men Type: BLOOD SPECIMEN [facility] [facility] Address: [address] [place] [address] Performed By: #### 2 4323-8, 0-3 #### [facility] CLIA [id number] [address] [place] [address] [place] Creatinine [Mass/Vol] 0.52 mg/dL Low 0.58-0.96 [facility] Comment on above: Order Comment: Speci men Type: BLOOD SPECIMEN Ordering Facility: [facility] Address: [address] [place] [address] Performed By: #### 2 4323-8, 3040-3 #### [facility] CLIA [id number] [address] [place] [address] [place] Creatinine and Glomerular filtration rate.predicted panel (S/P/Bld) 130 mL/min/1.73m??? Normal >=60 [facility] Comment on above: Order Comment: Roya del rio Type: BLOOD SPECIMEN Ordering Facility: [facility] Address: [address] [place] [address] Result Comment: Alysha mated Glomerular Filtration Rate (eGFR) is calculated using the 2020 CKD-EPI creatinine equation. This equation utilizes serum creatinine, sex, and age as parameters. The creatinine assay has traceable calibration to isotope dilution-mass spectrometry. Refer to KDIGO guidelines for clinical interpretation. In patients with unstable renal function, e.g. those with acute kidney injury, the eGFR may not accurately reflect actual GFR. Performed By: #### 2 4323-8, 0-3 #### [facility] CLIA [id number] [place] [address] [place] Glucose [Mass/Vol] 74 mg/dL Normal 74-99 [facility] Comment on above: Order Comment: Roya [place] rio Type: BLOOD SPECIMEN Ordering Facility: [facility] Address: [address] [place] [address] Result Comment: The [place] Diabetes Association (ADA) provides guidance for cutoff values for fasting glucose and random glucose. The ADA defines fasting as no caloric intake for at least 8 hours. Fasting plasma glucose results between 100 to 125 mg/dL indicate increased risk for diabetes (prediabetes). Fasting plasma glucose results greater than or equal to 126 mg/dL meet the criteria for diagnosis of diabetes. In the absence of unequivocal hyperglycemia, results should be confirmed by repeat testing. In a patient with classic symptoms of hyperglycemia or hyperglycemic crisis, random plasma glucose results greater than or equal to 200 mg/dL meet the criteria for diagnosis of diabetes. Reference: Standards of Medical Care in Diabetes 2016, [place] [employer] Association. Diabetes Care. 2016.39(Suppl 1). Performed By: #### 2 4323-8, 0-3 #### [facility] CLIA [id number] [address] [place] [address] [place] Potassium [Moles/Vol] 3.6 mmol/L Low 3.7-5.1 [facility] Comment on above: Order Comment: Speci men Type: BLOOD SPECIMEN Ordering Facility: [facility] Address: [address] [place] [address] Performed By: #### 2 4323-8, 3040-3 #### [facility] CLIA [id number] [address] [place] [address] [place] Protein [Mass/Vol] 7.4 g/dL Normal 6.3-8.0 [facility] Comment on above: Order Comment: Speci men Type: BLOOD SPECIMEN Ordering Facility: [facility] Address: [address] [place] [address] Performed By: #### 2 4323-8, 3040-3 #### [facility] CLIA [id number] [address] [place] [address] [place] Sodium [Moles/Vol] 135 mmol/L Low 136-144 [facility] Comment on above: Order Comment: Speci men Type: BLOOD SPECIMEN Ordering Facility: [facility] Address: [address] [place] [address] Performed By: #### 2 4323-8, 3040-3 #### [facility] CLIA [id number] [address] [place] [address] [place] Urea nitrogen [Mass/Vol] 6 mg/dL Low 7-21 [facility] Comment on above: Order Comment: Speci men Type: BLOOD SPECIMEN Ordering Facility: [facility] Address: [address] [place] [address] Performed By: #### 2 4323-8, 3040-3 #### [facility] CLIA [id number] [address] [place] [address] [place] HISTORY PHYSICALon HISTORY PHYSICAL HNO ID: [id number] Author: Dolores Brown MD Service: Obstetrics Author Type: Resident Type: HANDP Filed: 08/20/2023 2:57 AM Note Text: Attestation signed by Tatiana Irvin MD at 08/21/2023 5:04 PM Attending Note: Nelson findings confirmed. Patient examined. Discussed with the resident physician and the patient. Plan as outlined. Tatiana Irvin MD OBSTETRICS HISTORY AND PHYSICAL SERVICE DATE: August 19, 2023 SERVICE TIME: 8:47 PM Subjective Patient's stated reason for arrival: I've been having cramping all day and it feels like someone is twisting my intestines. I've also been vomiting and diarrhea CHIEF COMPLAINT: abdominal pain HISTORY OF THE PRESENT ILLNESS: The patient is a 28 year old female, , who is at 28w5d with an SUSHMA of 11/06/2023, by Last Menstrual Period dating method. is complicated by Crohn's disease with DLI since 2018, last known flare April of this year, last admitted with acute on chronic abdominal pain from 07/27-07/28. During that admission she was evaluated by general surgery due to prolapsed stoma, no surgical intervention warranted. She was also evaluated by GI who did not recommend steroids or other treatment. Her abdominal pain resolved and she was discharged home with plans for outpatient follow up. She saw her colorectal surgeon 08/02 and plan is for GI appointment to discuss medical management of her Crohns. Today she presents with severe periumbilical pain she describes as cramping/twisting. She endorses nausea and emesis accompanying this pain. Pain is somewhat improved with valsalva but no other relieving factors. She states this pain feels like her presenting pain during prior admission. She had some bleeding with wiping earlier, unsure if vaginal or rectal. Having diarrhea per rectum, reports normal ostomy output with occasional blood. Reports that her stoma prolapse is unchanged from prior though the surrounding skin is more irritated and painful. Denies LOF. +FM. No chest pain or shortness of breath. HISTORY REVIEW PAST MEDICAL HISTORY Diagnosis Date Crohn's disease (HCC) History of transfusion Migraine with aura Perianal abscess Seasonal allergies PAST SURGICAL HISTORY Procedure Laterality Date COLONOSCOPY GEN ANES 10/20/2020 EXCISION PILONIDAL CYST/SINUS SIMPLE 06/2016 PAST SURGICAL HISTORY OF 09/10/2018 Laparoscopic creation of diverting loop ileostomy, laparoscopic TAP block, examination under anesthesia with flexible sigmoidoscopy with biopsies, incision and drainage of complex perianal and supralevator abscesses with drain and seton placement. PAST SURGICAL HISTORY OF 08/26/2018 Exam under anesthesia, flexible sigmoidoscopy, incision and drainage of deep postanal space abscess, seton and drain placement. PAST SURGICAL HISTORY OF iliostomy FAMILY HISTORY Problem Relation Age of Onset Hodgkin Lymphoma Mother NON hodgkin Colon Cancer Other Social History Tobacco Use Smoking status: Former Packs/day: .5 Types: Cigarettes Smokeless tobacco: Never Tobacco comments: 3 per day Vaping Use Vaping Use: Never used Substance Use Topics Alcohol use: Not Currently Comment: 1 per week Drug use: No Obstetric History T1 L1 SAB0 IAB0 Ectopic0 Multiple0 Live Births1 Name of Baby 1: Coby Date: 02/03/15 GA: 40w0d Delivery: Vaginal, Spontaneous Apgar1: Not recorded Apgar5: Not recorded Living: Living Name of Baby 2: Not recorded Date: Not recorded GA: Not recorded Delivery: Not recorded Apgar1: Not recorded Apgar5: Not recorded Living: Not recorded Active Non-Hospital Problems Diagnosis Date Noted General counseling and advice for contraceptive management 08/01/2023 Overview Note: Salpingectomy. Medicaid consent signed 08/01 Abdominal pain affecting 07/26/2023 Anxiety 07/04/2023 Obesity, Class I, BMI 30-34.9 05/01/2023 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) 04/30/2023 Imaging of gastrointestinal tract abnormal 02/04/2023 Overview Note: MRE and MR pelvis IMPRESSION: Possible mild inflammatory change of the terminal ileum, distal to the ileostomy. Otherwise, no active inflammatory small bowel Crohn's disease. Probable mild inflammatory changes of the mid to distal descending colon. Persistent active perianal disease, similar to prior CT although improved from prior MRI. No perianal abscess. Crohn's disease of colon with complication (HCC) 01/17/2023 Overview Note: -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 She was treated with PDN, ADA from 1174-7717, lost response due to development of AB, UST from 1547-3571 lost insurance and was not on medications. 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 No medica (more content not included)... Normal [facility] TYPE + SCREEN PRENATALon ABO B Normal [facility] Comment on above: Order Comment: Speci men Type: BLOOD SPECIMENOrdering Facility: [facility] Address: [address] [place] [address] Performed By: #### T SPN ####[facility] [id number] [address] [place] [facility] HISTORICAL AB SCR STATUS Negative [facility] Comment on above: Order Comment: Speci men Type: BLOOD SPECIMENOrdering Facility: [facility] Address: [address] [place] [address] Performed By: #### T SPN ####[facility] [id number] [address] [place] Rh Nom (Bld) Positive [facility] Comment on above: Order Comment: Speci men Type: BLOOD SPECIMENOrdering Facility: [facility] Address: [address] [place] [address] Performed By: #### T SPN ####[facility] [id number] [place] [address] [place] TYPE AND SCREEN EXPIRATION 08/22/2023 23:59 [facility] Comment on above: Order Comment: Speci men Type: BLOOD SPECIMENOrdering Facility: [facility] Address: [address] [place] [address] Performed By: #### T SPN ####[facility] [id number] [place] [address] [place] URINE OB DIP B/Oon 3 Glucose Ql (U) Negative Neg mg/dL [facility] Protein.monoclonal (U) [Mass/Vol] Negative Neg mg/dL [facility] OBSTETRIC ULTRASOUND WHIon 1 [facility] C. trachomatis+N. gonorrhoea e DNA CORONA+probe Ql (Unsp spec)on 07-05-2023 C. trachomatis rRNA CORONA+probe Ql (Unsp spec) Negative Negative for Chlamydia trachomatis by amplificaton [facility] N. gonorrhoeae rRNA CORONA+probe Ql (Unsp spec) Negative Negative for Neisseria gonorrhoeae by amplification [facility] CBC panel Auto (Bld)on 07-05 Erythrocyte distribution width (RBC) [Ratio] 17.1 % High 11.5 - 15.0 % [facility] Hematocrit (Bld) [Volume fraction] 32.3 % Low 36.0 - 46.0 % [facility] Hemoglobin (Bld) [Mass/Vol] 10.5 g/dL Low 11.5 - 15.5 g/dL [facility] MCH (RBC) [Entitic mass] 27.9 pg 26.0 - 34.0 pg [facility] MCHC (RBC) [Mass/Vol] 32.5 g/dL 30.5 - 36.0 g/dL [facility] MCV (RBC) [Entitic vol] 85.9 fL 80.0 - 100.0 fL [facility] Nucleated RBC (Bld) [#/Vol] <0.01 k/uL [facility] Platelet mean volume (Bld) [Entitic vol] 9.8 fL 9.0 - 12.7 fL [facility] Platelets (Bld) [#/Vol] 231 10*3/uL 150 - 400 k/uL [facility] RBC (Bld) [#/Vol] 3.76 10*6/uL Low 3.90 - 5.2 0 m/uL [facility] WBC (Bld) [#/Vol] 5.04 10*3/uL 3.70 - 11. 00 k/uL [facility] URINE OB DIP B/Oon 3 Glucose Ql (U) Negative Neg mg/dL [facility] Protein.monoclonal (U) [Mass/Vol] Negative Neg mg/dL [facility] C Urineon 05-27-2023 Bacteria identified Cx Nom (U) Microbiology PROCEDURE: Urine Culture [R1] SOURCE: U CleanCatch BODY SITE: COLLECTED DATE/TIME: 05/25/2023 19:52 EDT RECEIVED DATE/TIME: 05/25/2023 20:27 EDT START DATE/TIME: 05/25/2023 20:27 EDT FREE TEXT SOURCE: Alex Sanchez DO, DO, Noah S. FINAL REPORTS Final Report [] Verified Date/Time: 05/27/2023 07:24 EDT <10,000 cfu/ml Mixed skin contaminants Performing Locations R1: This test was performed at: [facility], [address] [place] [address], [facility] , , [facility] Comment on above: Performed By: #### 2 [id number], [id number] ####[facility] [id number] [place] [address] Dipstick and Microscopicon 0 05-27-2023 Appearance (U) Cloudy Critically abnormal Clear [facility] Comment on above: Order Comment: Name Collection Type:: Clean-Voided Midstream Performed By: #### C MP, LIPASE, CBC #### [facility] [address] [id number] [facility] Bacteria,Urine 2+ High None Seen [facility] Comment on above: Order Comment: Name Collection Type:: Clean-Voided Midstream Performed By: #### C MP, LIPASE, CBC #### [facility] [address] [id number] [place] Bilirubin,Urine Negative Normal Negative [facility] Comment on above: Order Comment: Name Collection Type:: Clean-Voided Midstream Performed By: #### C MP, LIPASE, CBC #### [facility] [address] [id number] [facility] Calcium Oxalate Crystals,Urine 1+ Normal [facility] Comment on above: Order Comment: Name Collection Type:: Clean-Voided Midstream Performed By: #### C MP, LIPASE, CBC #### [facility] [address] Color (U) Yellow Normal Yellow [facility] Comment on above: Order Comment: Name Collection Type:: Clean-Voided Midstream Performed By: #### C MP, LIPASE, CBC #### [facility] [address] Glucose Ql (U) Normal Normal Normal [facility] Comment on above: Order Comment: Name Collection Type:: Clean-Voided Midstream Performed By: #### C MP, LIPASE, CBC #### [facility] [address] [place] [address] [place] Hyaline Casts,Urine 0-1 Normal 0-1 [facility] Comment on above: Order Comment: Name Collection Type:: Clean-Voided Midstream Performed By: #### C MP, LIPASE, CBC #### [address] Ketones Ql (U) Trace High Negative [facility] Comment on above: Order Comment: Name Collection Type:: Clean-Voided Midstream Performed By: #### C MP, LIPASE, CBC #### [address] Leukocyte esterase Test strip Ql (U) 3+ High Negative [facility] Comment on above: Order Comment: Name Collection Type:: Clean-Voided Midstream Performed By: #### C MP, LIPASE, CBC #### [place] [address] [place] Nitrite,Urine Negative Normal Negative [facility] Comment on above: Order Comment: Name Collection Type:: Clean-Voided Midstream Performed By: #### C MP, LIPASE, CBC #### [place] [address] [place] Occult Blood,Urine Negative Normal Negative [facility] Comment on above: Order Comment: Name Collection Type:: Clean-Voided Midstream Result Comment: PERF ORMED BY: [place] [address] PATHOLOGIST [employer] МАРИНА BENITEZ M.D. Performed By: #### C MP, LIPASE, CBC #### [address] Other Casts,Urine None Seen Normal None Seen [facility] Comment on above: Order Comment: Name Collection Type:: Clean-Voided Midstream Result Comment: PERF ORMED BY: [place] [address] PATHOLOGIST [employer] МАРИНА BENITEZ M.D. Performed By: #### C MP, LIPASE, CBC #### [address] pH (U) 5.5 [pH] Normal 5.0-9.0 [facility] Comment on above: Order Comment: Name Collection Type:: Clean-Voided Midstream Performed By: #### C MP, LIPASE, CBC #### [address] Protein,Urine Trace High Negative [facility] Comment on above: Order Comment: Name Collection Type:: Clean-Voided Midstream Performed By: #### C MP, LIPASE, CBC #### [address] RBC LM.HPF (Urine sed) [#/Area] 0 /[HPF] Normal 0-4 [facility] Comment on above: Order Comment: Name Collection Type:: Clean-Voided Midstream Performed By: #### C MP, LIPASE, CBC #### [address] Specificy [place],Urine 1.028 Normal 1.001-1.030 [facility] Comment on above: Order Comment: Name Collection Type:: Clean-Voided Midstream Performed By: #### C MP, LIPASE, CBC #### [address] Squamous Epithelial Cell,Urine 10-19 High 0-2 [facility] Comment on above: Order Comment: Name Collection Type:: Clean-Voided Midstream Performed By: #### C MP, LIPASE, CBC #### [address] Urobilinogen,Urine Normal Normal Normal [facility] Comment on above: Order Comment: Name Collection Type:: Clean-Voided Midstream Performed By: #### C MP, LIPASE, CBC #### [address] WBC,Urine 20-49 High 0-4 [facility] Comment on above: Order Comment: Name Collection Type:: Clean-Voided Midstream Performed By: #### C MP, LIPASE, CBC #### [address] Urine Cultureon 05-27-2023 Bacteria identified Cx Nom (U) >100,000 colonies/ml mixed bacterial skin contaminants 2 Days PERFORMED BY: [place] [address] PATHOLOGIST [employer] МАРИНА BENITEZ M.D. Normal [facility] Comment on above: Performed By: #### C MP, LIPASE, CBC #### [address] C-Reactive Proteinon 023 C-Reactive Protein 4.1 mg/dL High 0.0-0.5 [facility] Comment on above: Result Comment: PERF ORMED BY: [place] [address] PATHOLOGIST [employer] МАРИНА BENITEZ M.D. Performed By: #### C MP, LIPASE, CBC #### [address] Complete Blood Count Auto Di ffon 05-26-2023 Basophils (Bld) [#/Vol] 0.0 10*3/uL Normal 0.0-0.2 [facility] Comment on above: Result Comment: PERF ORMED BY: [place] [address] PATHOLOGIST [employer] МАРИНА BENITEZ M.D. Performed By: #### C MP, LIPASE, CBC #### [facility] [address] [place] [address] [place] Basophils/100 WBC (Bld) 0.6 % Normal . [facility] Comment on above: Performed By: #### C MP, LIPASE, CBC #### [address] Eosinophils (Bld) [#/Vol] 0.1 10*3/uL Normal 0.0-0.45 [facility] Comment on above: Performed By: #### C MP, LIPASE, CBC #### [address] Eosinophils/100 WBC (Bld) 2.0 % Normal . [facility] Comment on above: Performed By: #### C MP, LIPASE, CBC #### [address] Erythrocyte distribution width (RBC) [Ratio] 16.8 % High 11.9-15.3 [facility] Comment on above: Performed By: #### C MP, LIPASE, CBC #### [address] Hematocrit (Bld) [Volume fraction] 33.9 % Low 34.0-46.4 [facility] Comment on above: Performed By: #### C MP, LIPASE, CBC #### [address] Hemoglobin (Bld) [Mass/Vol] 11.4 g/dL Low 11.8-15.4 [facility] Comment on above: Performed By: #### C MP, LIPASE, CBC #### [address] Lymphocytes (Bld) [#/Vol] 1.3 10*3/uL Normal 1.00-4.8 [facility] Comment on above: Performed By: #### C MP, LIPASE, CBC #### [address] Lymphocytes/100 WBC (Bld) 21.4 % Normal . [facility] Comment on above: Performed By: #### C MP, LIPASE, CBC #### [address] MCH (RBC) [Entitic mass] 26.9 pg Normal 24.7-34.3 [facility] Comment on above: Performed By: #### C MP, LIPASE, CBC #### [address] MCV (RBC) [Entitic vol] 79.9 fL Low 80-100 [facility] Comment on above: Performed By: #### C MP, LIPASE, CBC #### [address] Mean Corpuscular HGB Conc 33.6 g/dL Normal 32.0-35.0 [facility] Comment on above: Performed By: #### C MP, LIPASE, CBC #### [address] Monocytes (Bld) [#/Vol] 0.5 10*3/uL Normal 0.0-0.8 [facility] Comment on above: Performed By: #### C MP, LIPASE, CBC #### [address] Monocytes/100 WBC (Bld) 19.37 % Normal 0.00-20.00 [facility] Comment on above: Performed By: #### C MP, LIPASE, CBC #### [address] Monocytes/100 WBC (Bld) 8.0 % Normal . [facility] Comment on above: Performed By: #### C MP, LIPASE, CBC #### [address] Neutrophils (Bld) [#/Vol] 4.2 10*3/uL Normal 1.8-7.7 [facility] Comment on above: Performed By: #### C MP, LIPASE, CBC #### [address] Neutrophils/100 WBC (Bld) 68.0 % Normal . [facility] Comment on above: Performed By: #### C MP, LIPASE, CBC #### [address] NRBC% 0.0 /100{WBC} Normal 0-0.5 [facility] Comment on above: Performed By: #### C MP, LIPASE, CBC #### [address] Platelet mean volume (Bld) [Entitic vol] 8.0 fL Normal 6.3-10.7 [facility] Comment on above: Performed By: #### C MP, LIPASE, CBC #### [facility] [address] Platelets (Bld) [#/Vol] 237 10*3/uL Normal 150-450 [facility] Comment on above: Performed By: #### C MP, LIPASE, CBC #### [address] RBC (Bld) [#/Vol] 4.24 10*6/uL Normal 3.60-5.00 [facility] Comment on above: Performed By: #### C MP, LIPASE, CBC #### [address] WBC (Bld) [#/Vol] 6.2 10*3/uL Normal 3.8-11.6 [facility] Comment on above: Performed By: #### C MP, LIPASE, CBC #### [address] Comprehensive Metabolic Pane chloe 05-26-2023 Albumin [Mass/Vol] 3.9 g/dL Normal 3.5-5.7 [facility] Comment on above: Performed By: #### C MP, LIPASE, CBC #### [address] Albumin/Globulin [Mass ratio] 1.1 {ratio} Normal [facility] Comment on above: Performed By: #### C MP, LIPASE, CBC #### [address] ALP [Catalytic activity/Vol] 60 U/L Normal 34-104 [facility] Comment on above: Performed By: #### C MP, LIPASE, CBC #### [address] [place] [address] [place] ALT [Catalytic activity/Vol] 16 U/L Normal 7-52 [facility] Comment on above: Performed By: #### C MP, LIPASE, CBC #### [facility] [address] Anion gap [Moles/Vol] 19.8 mmol/L High 6.0-15.0 [facility] Comment on above: Performed By: #### C MP, LIPASE, CBC #### [facility] [address] AST [Catalytic activity/Vol] 9 U/L Low 13-39 [facility] Comment on above: Performed By: #### C MP, LIPASE, CBC #### [address] Bilirubin [Mass/Vol] 0.4 mg/dL Normal 0.3-1.0 [facility] Comment on above: Performed By: #### C MP, LIPASE, CBC #### [address] Calcium [Mass/Vol] 9.2 mg/dL Normal 8.6-10.3 [facility] Comment on above: Performed By: #### C MP, LIPASE, CBC #### [address] Chloride [Moles/Vol] 101 mmol/L Normal 98-107 [facility] Comment on above: Performed By: #### C MP, LIPASE, CBC #### [facility] [address] CO2 [Moles/Vol] 20.9 mmol/L Low 21.0-31.0 [facility] Comment on above: Performed By: #### C MP, LIPASE, CBC #### [facility] [address] Creatinine [Mass/Vol] 0.60 mg/dL Normal 0.60-1.20 [facility] Comment on above: Performed By: #### C MP, LIPASE, CBC #### [place] [address] [place] Creatinine Clr Calc Pharmacy 152.53 [facility] Comment on above: Performed By: #### C MP, LIPASE, CBC #### [facility] [address] [place] [address] [place] GFR/1.73 sq M.predicted MDRD (S/P/Bld) [Vol rate/Area] mL/min/{1.73_m2} [facility] Comment on above: Performed By: #### C MP, LIPASE, CBC #### [facility] [address] Globulin (S) [Mass/Vol] 3.5 g/dL Normal [facility] Comment on above: Performed By: #### C MP, LIPASE, CBC #### [address] Glucose [Mass/Vol] 86 mg/dL Normal 70-100 [facility] Comment on above: Result Comment: [facility] Glucose Reference Range is dependent on time and content of last meal. Glucose of more than 200 mg/dL in a nonstressed, ambulatory subject supports the diagnosis of Diabetes Mellitus. ADA recommended reference range Performed By: #### C MP, LIPASE, CBC #### [address] Potassium [Moles/Vol] 3.7 mmol/L Normal 3.5-5.1 [facility] Comment on above: Performed By: #### C MP, LIPASE, CBC #### [facility] [address] Protein [Mass/Vol] 7.4 g/dL Normal 6.4-8.9 [facility] Comment on above: Performed By: #### C MP, LIPASE, CBC #### [facility] [address] Sodium [Moles/Vol] 138 mmol/L Normal 136-145 [facility] Comment on above: Performed By: #### C MP, LIPASE, CBC #### [address] Urea nitrogen [Mass/Vol] 8 mg/dL Normal 7-25 [facility] Comment on above: Performed By: #### C MP, LIPASE, CBC #### [facility] [address] ED Note-Physicianon 05-26-20 ED Note-Physician Basic Information Time Seen: Luis A LEDESMA Jess ArreolaAna 05/25/2023 19:43 Chief Complaint pt reports chronic abd pain from chrons. pt reports worsening pain this week. n/v/diarrhea History of Present Illness This patient presents to the emergency department today for chief complaint of a Crohn's flare. The patient is currently . She is due at the beginning of October. This is her second . Her first was full-term, vaginal delivery no complications. She states at that time her Crohn's disease was in remission. Her blood type is B+. She states she is also currently in the midst of setting up to see a new FORGE HELPER. She states she has had an ultrasound during this . They saw a baby in the uterus heartbeat was present. She denies any vaginal discharge or bleeding. She denies any urinary burning frequency or urgency. The patient does have an ostomy and states she has had some increased in output, but most recently it has settled down some. She is also still having some bowel movements per her rectum. She states her ostomy is prolapsed and she is due to see a new colorectal surgeon for consideration of revision of this. She states due to her , she cannot have this done until after the baby is born. The patient denies any fevers chills or sweats. She states she is just having a lot of abdominal discomfort, particularly anytime she eats. She did take some Zofran at home but still had some nausea. She feels like she is dehydrated. Patient denies chest pain or shortness of breath. Review of Systems Constitutional: Denies weight loss, fevers, chills, sweats, malaise Eyes: Denies visual changes, eye pain, double vision, scotomas, floaters ENT: Denies runny nose, epistaxis, sinus pain, ear pain, ringing in ears, tooth ache, sore throat, pain with swallowing Cardiovascular: Denies chest pain, shortness of breath, orthopnea, edema, palpitations, loss of consciousness, claudication Respiratory: Denies cough, sputum production, wheezing, hemoptysis, shortness of breath, dyspnea on exertion Gastrointestinal: Denies unintentional weight loss, difficulty swallowing, indigestion, bloating, cramping, loss of appetite, vomiting, diarrhea, constipation, hematochezia, melena. + Nausea, abdominal pain Genitourinary: Denies any incontinence of urine, dysuria, hematuria, nocturia, polyuria, hesitancy, frequency, urgency, burning Musculoskeletal: Denies joint pain, morning stiffness, joint swelling, decreased range of motion, crepitus Integumentary: Denies any pruritus, rashes, lesions, wounds, petechiae Neurologic: Denies any changes in sight, smell, hearing, taste, seizures, headache, paresthesia, numbness, weakness, balance disturbance Psychiatric denies any depression, change in sleep patterns, anxiety, difficulty concentrating, paranoia, anhedonia, lack of energy, socorro Hematologic/lymphatic: Denies any purpura, petechiae, excessive bleeding, bruising Physical Exam Vitals & Measurements T: 36.8 ?C(Oral) HR: 97(Peripheral) RR: 18 BP: 99/62 SpO2: 99% HT: 167 cm WT: 87 kg BMI: 31.2 Vital signs and nursing notes reviewed. General: Awake, alert, NAD. HEENT: Head is normocephalic, atraumatic. PERRL. EOMI. Sclerae are anicteric. External ears are normal. TMs are intact bilaterally. Canals are clear bilaterally. Nares are patent bilaterally. Oral mucosa is pink and moist. No lesions noted. Tongue protrudes in midline. Uvula rises with phonation. Neck is supple, no no palpable adenopathy. No JVD. Trachea is midline. Thorax: Symmetrical rise and fall Lungs: Clear to auscultation throughout all weinberg, no wheezes, no crackles Heart: Regular rate and rhythm. No murmur, gallop, or rub Abdomen: No tenderness on palpation. Bowel sounds are present active and normal. No organomegaly. No palpable masses. No CVA tenderness. + ileostomy Extremities: Motor sensory pulses intact x4 extremities. No lower extremity edema. Skin: No lesions, rashes, ulcerations. No bruising or petechiae. Color appropriate, warm and dry Neuro: No oriented x3, no focal neuro deficits Psych: Mood and affect are normal Medical Decision Making MEDICAL DECISION MAKING Number and Complexity of Problems Differential Diagnosis: Intrauterine , acute lower urinary tract infection, exacerbation of Crohn's disease, discomfort due to Crohn's disease MDM Data External documents reviewed: Not applicable My EKG interpretation: Noted in chart if applicable My CT interpretation: Noted in chart if applicable My X-ray interpretation: Noted in chart if applicable My Ultrasound interpretation: Not applicable Decision rules/scores evaluated: Noted in chart if applicable Discussed with: Not applicable Treatment and Disposition ED Course: Patient was interviewed and examined. The appropriate ER work-up was initiated. Patient was medicated here with Reglan and Benadryl IV. The patient was also given 1 L normal saline wide open. White blood count 6.0, hemogl (more content not included)... Normal [facility] Comment on above: Result Comment: Elec tronically Signed By: Jess Gunn PA-C\.br\Date and Time Signed: 05/26/23 01:27 EDT\.br\Electronically Co-Signed By: Alex Sanchez DO\.br\Date and Time Co-Signed: 05/26/23 02:19 EDT Erythrocyte Sedimentation Ra chris 05-26-2023 ESR (Bld) [Velocity] 86 mm/h High 0-19 [facility] Comment on above: Result Comment: PERF ORMED BY: [place] [address] PATHOLOGIST [employer] МАРИНА BENITEZ M.D. Performed By: #### C MP, LIPASE, CBC #### [facility] [address] [place], [place] [id number] [facility] Lipaseon 05-26-2023 Lipase [Catalytic activity/Vol] 96.0 U/L High 11.0-82.0 [facility] Comment on above: Result Comment: PERF ORMED BY: [place] [address] PATHOLOGIST [employer] МАРИНА BENITEZ M.D. Performed By: #### C MP, LIPASE, CBC #### [facility] [address] [place] [address] Auto Diffon 05-25-2023 Basophils/100 WBC (Bld) 0.5 % Normal 0.0-2.0 [facility] Comment on above: Order Comment: Order Added by Discern Expert. Performed By: #### 2 561261, 0161081, 6798939, 6262929, 9452898, [id number] #### [facility] [address] [place] [address] Basophils/Leukocytes Auto (Bld) [Pure # fraction] 0.0 E9/L Normal 0.0-0.2 [facility] Comment on above: Order Comment: Order Added by Discern Expert. Performed By: #### 2 484597, 0063822, 7119537, 6289107, 6428608, 23712190 #### [facility] [address] [place] [address] Eosinophils/100 WBC (Bld) 2.0 % Normal 0.0-8.0 [facility] Comment on above: Order Comment: Order Added by Discern Expert. Performed By: #### 2 900154, 9714918, 5420385, 9063809, 7390834, 94556959 #### [facility] [address] [place] [address] Eosinophils/Leukocyt es Auto (Bld) [Pure # fraction] 0.1 E9/L Normal 0.0-0.5 [facility] Comment on above: Order Comment: Order Added by Discern Expert. Performed By: #### 2 715853, 5719975, 7472435, 5320371, 0568944, 07432292 #### [facility] [address] [place] [address] Lymphocytes/100 WBC (Bld) 22.6 % Normal 14.0-50.0 [facility] Comment on above: Order Comment: Order Added by Discern Expert. Performed By: #### 2 289984, 3911199, 2141399, 1105406, 6453597, 68787998 #### [facility] [address] [place] [address] Lymphocytes/Leukocyt es Auto (Bld) [Pure # fraction] 1.4 E9/L Normal 1.0-4.0 [facility] Comment on above: Order Comment: Order Added by Discern Expert. Performed By: #### 2 364441, 8981036, 2031152, 1906908, 4774731, 48861199 #### [facility] [address] [place] [address] Monocytes/100 WBC (Bld) 8.7 % Normal 4.0-14.0 [facility] Comment on above: Order Comment: Order Added by Discern Expert. Performed By: #### 2 434105, 2894018, 0446615, 2366206, 7474533, 06866574 #### [facility] [address] [place] [address] Monocytes/Leukocytes Auto (Bld) [Pure # fraction] 0.5 E9/L Normal 0.2-1.0 [facility] Comment on above: Order Comment: Order Added by Esdras Expert. Performed By: #### 2 260849, 1988555, 7835025, 3961928, 2608541, 94693875 #### [facility] [address] [place] [address] Neutrophils/100 WBC (Bld) 66.2 % Normal 36.0-75.0 [facility] Comment on above: Order Comment: Order Added by Discern Expert. Performed By: #### 2 726435, 4477365, 2148422, 6248291, 1537728, 79559619 #### [facility] [address] [place] [address] Neutrophils/Leukocyt es Auto (Bld) [Pure # fraction] 4.0 E9/L Normal 2.0-7.5 [facility] Comment on above: Order Comment: Order Added by Discern Expert. Performed By: #### 2 291222, 7527158, 1297852, 2802307, 0116871, 91993278 #### [facility] [address] [place] [address] BMPon 05-25-2023 Creatinine [Mass/Vol] 0.5 mg/dL Normal 0.5-1.3 [facility] Comment on above: Performed By: #### 2 307027, 2469933, 4561316, 5052957, 7499626, 19705447 #### [facility] [address] [place] [address] Urea nitrogen [Mass/Vol] 9 mg/dL Normal 5-21 [facility] Comment on above: Performed By: #### 2 757628, 3864396, 2107985, 8301346, 9456357, 90078493 #### [facility] [address] [place] [address] Urea nitrogen/Creatinine [Mass ratio] 18 No Units Normal 10-20 [facility] Comment on above: Performed By: #### 2 571546, 6616713, 8886487, 7059410, 8512610, 46758859 #### [facility] [address] [place] [address] Anion gap [Moles/Vol] 8 mmol/L Normal 6-16 [facility] Comment on above: Performed By: #### 2 660303, 7594757, 2503194, 3050713, 4778025, 83038163 #### [facility] [address] [place] [address] Calcium [Mass/Vol] 8.4 mg/dL Low 8.9-11.1 [facility] Comment on above: Performed By: #### 2 080346, 9746626, 6136027, 3935786, 2109734, 17036755 #### [facility] [address] [place] [address] Chloride [Moles/Vol] 109 mmol/L Normal 101-111 [facility] Comment on above: Performed By: #### 2 034240, 0915040, 6803293, 8524872, 8725499, 78355019 #### [facility] [address] [place] [address] CO2 [Moles/Vol] 21 mmol/L Normal 21-31 [facility] Comment on above: Performed By: #### 2 005663, 6109461, 3160636, 3386045, 7944135, 29317197 #### [facility] [address] [place] [address] Glucose [Mass/Vol] 81 mg/dL Normal 55-199 [facility] Comment on above: Result Comment: If t his glucose result represents a fasting glucose, interpretation should refer to the following reference range: 55-99 mg/dL Performed By: #### 2 225365, 8718167, 3719199, 7384105, 1384643, 14818660 #### [facility] [address] [place] [address] Potassium [Moles/Vol] 3.4 mmol/L Low 3.5-5.3 [facility] Comment on above: Performed By: #### 2 022750, 9805479, 4883837, 6180077, 2124863, 11716565 #### [facility] [address] [place] [address] Sodium [Moles/Vol] 135 mmol/L Normal 135-145 [facility] Comment on above: Performed By: #### 2 785688, 8627820, 3062650, 7834378, 4306486, 50168314 #### [facility] [address] [place] [address] CBC w/ Auto Diffon 3 Erythrocyte distribution width (RBC) [Ratio] 17.3 % High 10.9-14.2 [facility] Comment on above: Performed By: #### 2 260598, 8959226, 6847070, 0814074, 7917109, 67442818 #### [facility] [address] [place] [address] Hematocrit (Bld) [Volume fraction] 35.6 % Normal 34.0-46.0 [facility] Comment on above: Performed By: #### 2 373142, 7660426, 0847297, 9740345, 6911521, 52000632 #### [facility] [address] [place] [address] Hemoglobin (Bld) [Mass/Vol] 12.0 g/dL Normal 12.0-16.0 [facility] Comment on above: Performed By: #### 2 157542, 5804564, 9171526, 5704168, 5399365, 51199499 #### [facility] [address] [place] [address] MCH (RBC) [Entitic mass] 26.7 pg Low 27.0-34.0 [facility] Comment on above: Performed By: #### 2 998835, 5455280, 6506427, 7074234, 1985152, 94541609 #### [facility] [address] [place] [address] MCHC (RBC) [Mass/Vol] 33.6 g/dL Normal 31.4-36.0 [facility] Comment on above: Performed By: #### 2 940505, 1924992, 1770999, 1836574, 0099170, 51929446 #### [facility] [address] [place] [address] MCV (RBC) [Entitic vol] 79.5 fL Low 80.0-100.0 [facility] Comment on above: Performed By: #### 2 352633, 3016475, 1332069, 9574812, 8329517, 49170707 #### [facility] [address] [place] [address] Platelet mean volume (Bld) [Entitic vol] 8.7 fL Normal 6.4-10.8 [facility] Comment on above: Performed By: #### 2 773187, 2012309, 8631640, 6405742, 0322066, 54574947 #### [facility] [address] [place] [address] Platelets (Bld) [#/Vol] 233.0 E9/L Normal 150.0-500.0 [facility] Comment on above: Performed By: #### 2 025994, 1080973, 3667653, 6099837, 9387826, 39945858 #### [facility] [address] [place] [address] RBC (Bld) [#/Vol] 4.5 E12/L Normal 4.3-5.9 [facility] Comment on above: Performed By: #### 2 524775, 1679439, 5796039, 2825063, 0645617, 70845117 #### [facility] [address] [place] [address] WBC corrected for nucl RBC Auto (Bld) [#/Vol] 6.0 E9/L Normal 4.0-11.0 [facility] Comment on above: Performed By: #### 2 426863, 2572747, 5582333, 1187421, 0159339, 07410370 #### [facility] [address] [place] [address] CHEMISTRYOrdered By: SYSTEM SYSTEM on 05-25-2023 Albumin [Mass/Vol] 3.1 g/dL Low 3.3 - 5.0 gm/dL [facility] Albumin/Globulin [Mass ratio] 0.8 {ratio} Low 1.1 - 2.2 [facility] ALP [Catalytic activity/Vol] 52 [iU]/d Normal 21 - 98 Int._Unit/L [facility] ALT No additional P-5'-P [Catalytic activity/Vol] 22 [iU]/d Normal 6 - 46 Int._Unit/L [facility] Anion gap [Moles/Vol] 8 mmol/L Normal 6 - 16 mEq/L [facility] AST [Catalytic activity/Vol] 14 [iU]/d Normal 5 - 43 Int._Unit/L [facility] Bilirubin [Mass/Vol] 0.5 mg/dL Normal 0.0 - 1 .1 mg/dL [facility] Bilirubin.direct [Mass/Vol] mg/dL Normal 0.1 - 0.4 mg/dL [facility] Bilirubin.indirect [Mass or moles/Vol] Unable to Calculate mg/dL Invalid Interpretation Code 0.1 - 0.9 mg/dL [facility] Calcium [Mass/Vol] 8.4 mg/dL Low 8.9 - 11. 1 mg/dL [facility] Chloride [Moles/Vol] 109 mmol/L Normal 101 - 1 11 mmol/L [facility] CO2 [Moles/Vol] 21 mmol/L Normal 21 - 31 mmol/L [facility] Creatinine [Mass/Vol] 0.5 mg/dL Normal 0.5 - 1.3 mg/dL [facility] GFR/1.73 sq M.predicted among non-blacks MDRD (S/P/Bld) [Vol rate/Area] 132 mL/min/1.73 m2 Normal >=59mL/min/1.7 3 m2 [facility] Chem S Globulin (S) [Mass/Vol] 3.8 g/dL Normal 1.4 - 4.0 gm/dL [facility] Glucose [Mass/Vol] 81 mg/dL Normal 55 - 199 mg/dL [facility] Remisol Lipase [Catalytic activity/Vol] 58 U/L Normal 13 - 58 unit/L [facility] Magnesium [Mass/Vol] 1.6 mg/dL Normal 1.3 - 2 .4 mg/dL [facility] Potassium [Moles/Vol] 3.4 mmol/L Low 3.5 - 5.3 mmol/L [facility] Protein [Mass/Vol] 6.9 g/dL Normal 6.0 - 7.8 gm/dL [facility] Sodium [Moles/Vol] 135 mmol/L Normal 135 - 145 mmol/L [facility] Urea nitrogen [Mass/Vol] 9 mg/dL Normal 5 - 21 mg/dL [facility] Urea nitrogen/Creatinine [Mass ratio] 18 mg/mg Normal 10 - 20 [facility] Consent for Treatmenton Consent for Treatment [id number] 0CD:127 Normal [facility] Discharge Instructionson Discharge Instructions [id number]:127 Normal [facility] ED Clinical Summaryon 2022 ED Clinical Summary [address] [address] ED Clinical Summary Person Information Name: ROLA AGUILAR [facility] Age: 27 Years : 1995 Sex: Female Language: Iraqi PCP: Kale RENDON MD Marital Status: Single Phone: [phone] Visit Id: Visit Reason: Diarrhea; Vomiting; Abdominal pain; severe abd pain Speciality: Acuity: 3 Enc Type: Emergency Med Service: Emergency Arrival: 05/25/2023 18:50:32 Discharge: 05/25/2023 23:06:50 LOS: 000 04:16 Checkin: 05/25/2023 18:50:32 Checkout: 05/25/2023 23:06:50 Dispo Type: Home (Routine DC) EVENTS: Event Name Event Status Request Date/Time Start Date/Time Complete Date/Time Arrive Complete 05/25/2023 18:50:32 05/25/2023 18:50:32 05/25/2023 18:50:32 Document Home Meds Request 05/25/2023 18:50:32 Triage Complete 05/25/2023 18:50:32 05/25/2023 18:56:55 05/25/2023 18:56:55 Registration Complete 05/25/2023 18:53:09 05/25/2023 18:53:09 05/25/2023 18:53:09 Reg Complete Request 05/25/2023 18:53:09 Reg Bed Request Complete 05/25/2023 18:53:09 05/25/2023 18:53:09 05/25/2023 18:53:09 Bed Assign Complete 05/25/2023 18:53:33 05/25/2023 18:53:33 05/25/2023 18:53:33 Dr Exam Complete 05/25/2023 18:53:33 05/25/2023 19:43:09 05/25/2023 19:43:09 RN Exam Complete 05/25/2023 18:53:33 05/25/2023 19:37:59 05/25/2023 19:37:59 Registration Request 05/25/2023 19:43:09 Dr Exam Complete 05/25/2023 19:44:14 05/25/2023 19:44:14 05/25/2023 19:44:14 Pending Labs Complete 05/25/2023 19:51:42 05/25/2023 21:16:35 Lab Complete 05/25/2023 19:51:42 05/25/2023 21:16:35 Urine Collect Complete 05/25/2023 19:51:42 05/25/2023 20:22:10 Meds Admin Request 05/25/2023 19:51:42 Patient Care Request 05/25/2023 19:51:42 Pending Labs Cancel 05/25/2023 20:04:33 05/25/2023 20:28:49 Lab Cancel 05/25/2023 20:04:33 05/25/2023 20:28:49 Meds Admin Complete 05/25/2023 20:05:56 05/25/2023 20:21:08 Pending Labs Complete 05/25/2023 20:06:19 05/25/2023 20:06:19 05/25/2023 20:06:26 Lab Complete 05/25/2023 20:06:19 05/25/2023 20:06:19 05/25/2023 20:06:26 Pending Labs Inlab 05/25/2023 20:12:03 05/25/2023 20:12:03 Lab Inlab 05/25/2023 20:12:03 05/25/2023 20:12:03 Pending Labs Complete 05/25/2023 20:31:26 05/25/2023 20:31:26 05/25/2023 21:16:33 Lab Complete 05/25/2023 20:31:26 05/25/2023 20:31:26 05/25/2023 21:16:33 Pending Labs Complete 05/25/2023 20:52:56 05/25/2023 20:52:56 05/25/2023 21:16:34 Lab Complete 05/25/2023 20:52:56 05/25/2023 20:52:56 05/25/2023 21:16:34 Discharge Complete 05/25/2023 22:14:49 05/25/2023 23:07:00 05/25/2023 23:07:00 Transfer Complete 05/25/2023 23:07:00 05/25/2023 23:07:00 05/25/2023 23:07:00 ADDRESS: [facility] [address] [place] [phone] PHYS DOC NOTES: MEDICAL INFORMATION: Prescriptions Given: Medications to Continue with No Changes Other Medications acetaminophen-hydrocod one ([place] 325 mg-5 mg oral tablet) 1 Tablets By Mouth every 6 hours as needed for pain. Refills: 0. acetaminophen-hydrocod one ([place] 325 mg-5 mg oral tablet) 1 Tablets By Mouth every 6 hours as needed for pain. Refills: 0. acetaminophen-oxycodon e (Percocet 325 mg-5 mg Tab) 1 Tablets By Mouth every 6 hours as needed as needed for pain. Refills: 0. acetaminophen-oxycodon e (Percocet 5 mg-325 mg oral tablet) 1 Tablets By Mouth every 6 hours. Refills: 0. acetaminophen-oxycodon e (Percocet 5 mg-325 mg oral tablet) 1 Tablets By Mouth every 6 hours. Refills: 0. acetaminophen-oxycodon e (Percocet 5 mg-325 mg oral tablet) 1 Tablets By Mouth every 6 hours. Refills: 0. hydrOXYzine (Vistaril 25 mg Tab) 1-2 tab(s) By Mouth 4 times a day as needed as needed for anxiety. Refills: 0. lurasidone (Latuda 20 mg oral tablet) 1 Tablets By Mouth every day. Refills: 0. metoclopramide (metoclopramide 10 mg oral tablet, disintegrating) 1 Tablets By Mouth every 6 hours as needed Nausea/Vomiting. Refills: 0. ondansetron (Zofran 4 mg Tab) 1 Tablets By Mouth every 8 hours as needed Nausea/Vomiting. Refills: 0. ondansetron (Zofran ODT 4 mg Tab-Dis) 1 Tablets By Mouth every 8 hours. Refills: 0. ondansetron (Zofran ODT 4 mg Tab-Dis) 1 Tablets By Mouth every 8 hours as needed Nausea/Vomiting. Refills: 0. predniSONE (predniSONE 10 mg Tab) 4 tab(s) Oral Daily for 1 week, then 3 tablets oral daily for 1 week, then 2 tablets oral daily for 1 week then 1 tablet oral daily for 1 week. Refills: 0. promethazine (Phenergan 25 mg Supp) 1 Suppositories By rectum every 6 hours as needed Nausea/Vomiting. Refills: 0. promethazine (promethazine 25 mg Tab) 1 Tablets By Mouth every 6 hours as needed as needed for nausea/vomiting. Refills: 0. PATIENT EDUCATION INFORMATION: Instructions: Crohn's Disease Follow up: With: Address: When: Ja Bhardwaj [address] [place] [address], [address], [facility] [address] [place] [phone] Business (1) In 3 days 05/28/2023 With: Address: When: Kale RENDON [address] [facility] [place] [id number] Business (1) In 3 days DIAGNOSIS: 1:Abdominal pain in female; 2:Crohn's disease; 3:Intraute (more content not included)... Normal [facility] ED Patient Education Noteon 05-25-2023 ED Patient Education Note Immunology Crohn's Disease Crohn's disease is a long-lasting (chronic) disease that affects the gastrointestinal (GI) tract. Crohn's disease often causes irritation and inflammation in the small intestine and the beginning of the large intestine, but it can affect any part of the GI tract. Crohn's disease is part of a group of illnesses that are known as inflammatory bowel disease (IBD). Crohn's disease may start slowly and get worse over time. Symptoms may come and go. They may also go away for months or even years at a time (remission). What are the causes? The exact cause of this condition is not known. It may involve a response that causes your body's disease-fighting system (immune system) to attack healthy cells and tissues (autoimmune response). Bacteria, genes, and your environment may also play a role. What increases the risk? The following factors may make you more likely to develop this condition: ? Having a family member who has Crohn's disease, another IBD, or an autoimmune condition. ? Using products that contain nicotine or tobacco, such as cigarettes and e-cigarettes. ? Being in your 20s. ? Having Eastern ancestry. What are the signs or symptoms? The main symptoms of this condition involve your GI tract. These include: ? Diarrhea. ? Pain or cramping in the abdomen commonly felt in the lower right side of the abdomen. ? Frequent watery or bloody stools. ? Constipation. This may mean having: ? Fewer bowel movements in a week than normal. ? Difficulty having a bowel movement. ? Stools that are dry, hard, or larger than normal. ? Rectal bleeding or pain. ? An urgent need to have a bowel movement. ? The feeling that you are not finished having a bowel movement. Other symptoms may include: ? Unexplained weight loss. ? Tiredness (fatigue). ? Fever. ? Nausea or appetite loss. ? Joint pain. ? Vision changes. ? Red bumps or sores on the skin. ? Sores inside the mouth. How is this diagnosed? This condition may be diagnosed based on: ? Your symptoms and medical history. ? A physical exam. ? Tests, which may include: ? Blood tests. ? Stool sample tests. ? Imaging tests, such as X-rays and CT scans. ? Tests to examine the inside of your intestines using a long, flexible tube that has a light and a camera on the end (colonoscopy). ? A procedure to remove tissue samples from inside your bowel for testing (biopsy). You may need to work with a health care provider who specializes in diseases of the digestive tract (clinical radiologist). How is this treated? There is no cure for this condition, and it affects each person differently. Treatment can help you manage your symptoms. Your treatment may include: ? Medicines. These may be used by themselves or with other treatments (combination therapy). You may be given medicines that help to: ? Reduce inflammation. ? Control your immune system activity. ? Fight infections. ? Relieve cramps and prevent diarrhea. ? Control your pain. ? Surgery. You may need surgery if: ? Medicines and other treatments are not working anymore. ? You develop complications from severe Crohn's disease. ? A section of your intestine becomes so damaged that it needs to be removed. ? Lifestyle changes: ? Maintaining eating or drinking restrictions. ? Reducing or eliminating use of alcohol or nicotine. Follow these instructions at home: Medicines ? Take qswh-hol-exgtwbi and prescription medicines only as told by your health care provider. ? If you were prescribed an antibiotic, take it as told by your health care provider. Do not stop taking the antibiotic even if you start to feel better. ? Avoid taking ibuprofen or other NSAID medicines if possible. These can make Crohn's disease worse. Eating and drinking ? Talk with your health care provider or a registered dietitian about what diet is best for you. ? Drink enough fluid to keep your urine pale yellow. ? If you are taking steroids to reduce inflammation, get plenty of calcium in your diet to help keep your bones healthy. You may also consider taking a calcium supplement with vitamin D. ? Keep a food diary to identify foods that make your symptoms better or worse, and avoid foods that cause symptoms. ? Follow instructions from your health care provider about eating or drinking restrictions if you have worsening symptoms (flare-up). ? If you drink alcohol: ? Limit how much you have to: ? 0?1 drink a day for women who are not . ? 0?2 drinks a day for men. ? Know how much alcohol is in a drink. In the [place] one drink equals one 12 oz bottle of beer (355 mL), one 5 oz glass of wine (148 mL), or one 1? oz glass of hard liquor (44 mL). General instructions ? Make sure you get all the vaccines that your health care provider recommends, especially pneumonia (pneumococcal) and flu (influenza) vaccines. ? Do not use any products that contain jonny (more content not included)... Normal [facility] ED Patient Summaryon 023 ED Patient Summary [place] [id number] Patient Discharge Instructions Person Information Name: PEDRO LUIS AGUILARHELENA Ward Age: 27 Years Arrival Date: 05/25/2023 18:50:32 Discharge Diagnosis: 1:Abdominal pain in female; 2:Crohn's disease; 3:Intrauterine Primary Care Physician: Kale RENDON MD Provider Information Primary Provider: Alex Sanchez DO Advanced Foxing Cutting Machine Operator:None The exam and treatment you received in the Emergency Department were for an urgent problem and are not intended as complete care. It is important that you follow up with a doctor, nurse practitioner, or physician?s assistant professor surgical technology for ongoing care. If your symptoms become worse or you do not improve as expected and you are unable to reach your usual health care provider, you should return to the Emergency Department. We are available 24 hours a day. ROLA AGUILAR has been given the following list of patient education materials, prescriptions and follow-up instructions: Follow-up Instructions: With: Address: When: Ja White, [address], [address] [address] [phone] Business (1) In 3 days 05/28/2023 With: Address: When: Kale RENDON [address] [place] [address], [place] [phone] Business (1) In 3 days In the event that this physician does not participate in your insurance network, please consult with your insurance company to find a nearby participating provider. Patient Education Materials: Crohn's Disease A MESSAGE TO ALL PATIENTS REGARDING OPIOIDS PRESCRIPTION OPIOIDS: WHAT YOU NEED TO KNOW Prescription opioids can be used to help relieve kelpkluz-um-bksfel pain and are often prescribed following a surgery or injury, or for certain health conditions. These medications can be an important part of the treatment but also come with serious risks. It is important to work with your healthcare provider to make sure you are getting the safest, most effective care. WHAT ARE THE RISKS AND SIDE EFFECTS OF OPIOID USE? Prescription opioids carry serious risks of addiction and overdose, especially with prolonged use. An opioid overdose, often marked by slowed breathing, can cause sudden . The use of prescription opioids can have a number of side effects as well, even when taken as directed: ? Tolerance?meaning you might need to take more of the medication for the same pain relief ? Physical dependence?meaning you have symptoms of withdrawal when a medication is stopped ? Increased sensitivity to pain ? Constipation ? Nausea, vomiting, and dry mouth ? Sleepiness and dizziness ? Confusion ? Depression ? Low levels of testosterone that can result in lower sex drive, energy, and strength ? Itching and sweating RISKS ARE GREATER WITH: ? History of drug misuse, substance use disorder, or overdose ? Mental health conditions (such as depression or anxiety) ? Sleep apnea ? Older age (65 years and older) ? Avoid alcohol while taking prescription opioids. Also, unless specifically advised by your health care provider, medications to avoid include: ? Benzodiazepines (such as Xanax or Valium) ? Muscle relaxants (such as Soma or Flexeril) ? Hypnotics (such as Ambien or Lunesta) ? Other prescription opioids KNOW YOUR OPTIONS Talk to your health care provider about ways to manage your pain that don?t involve prescription opioids. Some of these options may actually work better and have fewer risks and side effects. Options may include: ? Pain relievers such as acetaminophen, ibuprofen, and naproxen ? Some medication that are also used for depression or seizures ? Physical therapy and exercise ? Cognitive behavioral therapy, a psychological, goal-directed approach, in which patients learn how to modify physical, behavioral, and emotional triggers of pain and stress. IF YOU ARE PRESCRIBED OPIOIDS FOR PAIN: ? Never take opioids in greater amounts or more often than prescribed. ? Follow up with your primary health care provider. o Work together to create a plan on how to manage your pain. o Talk about ways to help manage your pain that don?t involve prescription opioids. o Talk about any and all concerns and side effects. ? Help prevent misuse and abuse o Never sell or share prescription opioids. o Never use another person?s prescription opioids. ? Store prescription opioids in a secure place and out of reach of others (this may include visitors, children, friends, and family). ? Safely dispose of unused prescription opioids: Find your community drug take-back program or your pharmacy mail-back program, or flush them down the toilet, following guidance from the Food and Drug Administration (www.fda.gov/Drugs/Res ourcesForYou). ? Visit www.cdc.gov/drugoverdo se to learn about the risks of opioids abuse and ov (more content not included)... Normal [facility] HEMATOLOGYOrdered By: SYSTEM SYSTEM on 05-25-2023 Basophils/100 WBC (Bld) 0.5 % Normal 0.0 - 2.0 % [facility] HemeAutoSS Basophils/Leukocytes Auto (Bld) [Pure # fraction] 0.0 E9/L Normal 0.0 - 0.2 E9/L [facility] HemeAutoSS Eosinophils/100 WBC (Bld) 2.0 % Normal 0.0 - 8.0 % [facility] HemeAutoSS Eosinophils/Leukocyt es Auto (Bld) [Pure # fraction] 0.1 E9/L Normal 0.0 - 0.5 E9/L [facility] HemeAutoSS Lymphocytes/100 WBC (Bld) 22.6 % Normal 14.0 - 50.0 % [facility] HemeAutoSS Lymphocytes/Leukocyt es Auto (Bld) [Pure # fraction] 1.4 E9/L Normal 1.0 - 4.0 E9/L [facility] HemeAutoSS Monocytes/100 WBC (Bld) 8.7 % Normal 4.0 - 14.0 % [facility] HemeAutoSS Monocytes/Leukocytes Auto (Bld) [Pure # fraction] 0.5 E9/L Normal 0.2 - 1.0 E9/L [facility] HemeAutoSS Neutrophils/100 WBC (Bld) 66.2 % Normal 36.0 - 75.0 % [facility] HemeAutoSS Neutrophils/Leukocyt es Auto (Bld) [Pure # fraction] 4.0 E9/L Normal 2.0 - 7.5 E9/L [facility] HemeAutoSS HEMATOLOGYOrdered By: Corie Gardiner on 05-25-2023 Erythrocyte distribution width (RBC) [Ratio] 17.3 % High 10.9 - 14.2 % [facility] HemeAutoSS Hematocrit (Bld) [Volume fraction] 35.6 % Normal 34.0 - 46.0 % [facility] HemeAutoSS Hemoglobin (Bld) [Mass/Vol] 12.0 g/dL Normal 12.0 - 16.0 gm/dL [facility] HemeAutoSS MCH (RBC) [Entitic mass] 26.7 pg Low 27.0 - 34.0 pg [facility] HemeAutoSS MCHC (RBC) [Mass/Vol] 33.6 g/dL Normal 31.4 - 36.0 gm/dL [facility] HemeAutoSS MCV (RBC) [Entitic vol] 79.5 fL Low 80.0 - 100.0 fL [facility] HemeAutoSS Platelet mean volume (Bld) [Entitic vol] 8.7 fL Normal 6.4 - 10.8 fL [facility] HemeAutoSS Platelets (Bld) [#/Vol] 233.0 E9/L Normal 150.0 - 500.0 E9/L [facility] HemeAutoSS RBC (Bld) [#/Vol] 4.5 E12/L Normal 4.3 - 5.9 E12/L [facility] HemeAutoSS WBC corrected for nucl RBC Auto (Bld) [#/Vol] 6.0 E9/L Normal 4.0 - 11.0 E9/L [facility] HemeAutoSS Hep Func Panelon 05-25-2023 Bilirubin.indirect [Mass or moles/Vol] UTC Abnormal 0.1-0.9 [facility] Comment on above: Result Comment: Resu lt verified by Discern Rule. Performed result UTC (Unable to Calculate) was sent as an Alpha code due the inability to calculate a valid numeric value. Performed By: #### 2 930529, 5116706, 0339386, 2307389, 1828989, 28059869 #### [facility] [address] [place] [address] Albumin [Mass/Vol] 3.1 g/dL Low 3.3-5.0 [facility] Comment on above: Performed By: #### 2 138600, 0983124, 2024764, 7805835, 8901128, 55114072 #### [facility] [address] [place] [address] Albumin/Globulin (S) [Mass conc ratio] 0.8 Low 1.1-2.2 [facility] Comment on above: Performed By: #### 2 946975, 5904758, 0207814, 0565022, 7610406, 49107829 #### [facility] [address] [place] [address] ALP [Catalytic activity/Vol] 52 Int._Unit/L Normal 21-98 [facility] Comment on above: Performed By: #### 2 541355, 0081269, 7764463, 6106159, 8472832, 90397662 #### [facility] [address] [place] [address] ALT No additional P-5'-P [Catalytic activity/Vol] 22 Int._Unit/L Normal 6-46 [facility] Comment on above: Performed By: #### 2 835761, 3757849, 2449239, 7887591, 5307824, 42464643 #### [facility] [address] [place] [address] AST [Catalytic activity/Vol] 14 Int._Unit/L Normal 5-43 [facility] Comment on above: Performed By: #### 2 232463, 1707306, 0177743, 0873100, 0011456, 02698671 #### [facility] [address] [place] [address] Bilirubin [Mass/Vol] 0.5 mg/dL Normal 0.0-1.1 [facility] Comment on above: Performed By: #### 2 236733, 8064680, 9515425, 5493593, 2899928, 05769837 #### [facility] [address] [place] [address] Globulin (S) [Mass/Vol] 3.8 g/dL Normal 1.4-4.0 [facility] Comment on above: Performed By: #### 2 410974, 3178270, 7890549, 6466794, 5189853, 68469435 #### [facility] [address] [place] [address] Protein [Mass/Vol] 6.9 g/dL Normal 6.0-7.8 [facility] Comment on above: Performed By: #### 2 519580, 5431563, 8364810, 6389118, 3261787, 94232364 #### [facility] [address] [place] [address] Bilirubin.direct [Mass/Vol] mg/dL Normal 0.1-0.4 [facility] Comment on above: Performed By: #### 2 905529, 4739263, 0327030, 4653294, 6979195, 30597096 #### [facility] [address] [place] [address] Lipase Levelon 05-25-2023 Lipase [Catalytic activity/Vol] 58 U/L Normal 13-58 [facility] Comment on above: Performed By: #### 2 526807, 4025649, 1369392, 8976494, 1210935, 35050053 #### [facility] [address] [place] [address] Magnesiumon 05-25-2023 Magnesium [Mass/Vol] 1.6 mg/dL Normal 1.3-2.4 [facility] Comment on above: Performed By: #### 2 562245, 8230985, 6712597, 4272778, 3138048, 07124093 #### [facility] [address] [place] [address] UA With Cult Reflexon 2022 Bacteria LM Ql (Urine sed) 1+ /HPF Abnormal Trace [facility] Comment on above: Performed By: #### 2 732732, 94758564 ####[facility] [address] [place] [address] Bilirubin Ql (U) Negative Normal Negative [facility] Comment on above: Performed By: #### 2 663457, 53382768 ####[facility] [address] [place] [address] Clarity (U) SL CLOUDY Abnormal Clear [facility] Comment on above: Performed By: #### 2 374038, 13783656 ####[place] [address] [place] [address] Color (U) YELLOW Normal Yellow [facility] Comment on above: Performed By: #### 2 816892, 60816248 ####[facility] [address] [place] [address] Epithelial cells.squamous LM.HPF (Urine sed) [#/Area] 3-4 Normal 0-2 [facility] Comment on above: Performed By: #### 2 531006, 30112250 ####[facility] [address] [place] [address] Glucose Test strip (U) [Mass/Vol] Negative Normal Negative [facility] Comment on above: Performed By: #### 2 605709, 53266700 ####[facility] [address] [place] [address] Hemoglobin Ql (U) Negative Normal Negative [facility] Comment on above: Performed By: #### 2 577887, 95306529 ####[facility] [address] [place] [address] Ketones (U) [Mass/Vol] Negative Normal Negative [facility] Comment on above: Performed By: #### 2 038136, 86104829 ####[facility] [address] [place] [address] Reddell.plasma/Lithi um.RBC (Bld) [Mass ratio] 0-3 Normal 0-3 [facility] Comment on above: Performed By: #### 2 087721, 32925833 ####[facility] [address] [place] [address] Mucus Ql (Urine sed) 1+ Normal Fish er [facility] Comment on above: Performed By: #### 2 639328, 13282060 ####[facility] [address] [place] [address] Nitrite Ql (U) Negative Normal Negative [facility] Comment on above: Performed By: #### 2 425830, 66894439 ####[address] [address] pH (U) 6.0 [pH] Invalid Interpretation Code 5.0-9.0 [facility] Comment on above: Performed By: #### 2 445618, 48903262 ####[address] [address] Protein (U) [Mass/Vol] TRACE Abnormal Negative [facility] Comment on above: Performed By: #### 2 647349, 46822883 ####[facility] [address] [place] [address] Specific gravity (U) [Rel density] 1.025 Invalid Interpretation Code 1.005-1.030 [facility] Comment on above: Performed By: #### 2 493884, 92710766 ####[facility] [address] [place] [address] Type of Urine collection method Clean Catch Normal [facility] Comment on above: Performed By: #### 2 438194, 52026329 ####[facility] [address] [place] [address] Urobilinogen Qn (U) 0.2 {Keyla'U}/dL Normal 0.0-1.0 [facility] Comment on above: Performed By: #### 2 059876, 05442927 ####[facility] [address] [place] [address] WBC Auto Ql (U) 1+ Abnormal Negative [facility] Comment on above: Performed By: #### 2 012868, 97419319 ####[facility] [address] [place] [address] WBC LM.HPF (Urine sed) [#/Area] 6-15 Abnormal 0-5 [facility] Comment on above: Performed By: #### 2 846137, 18624774 ####[facility] [address] [place] [address] URINALYSISOrdered By: Espinoza Mason on 05-25-2023 Bacteria LM Ql (Urine sed) 1+ /HPF Invalid Interpretation Code Trace/HPF [facility] UA Auto SS Bilirubin Ql (U) Negative (05/25/23 7:52 PM) Normal Negative [facility] UA Auto SS Clarity (U) Slightly Cloudy *ABN* (05/25/23 7:52 PM) Invalid Interpretation Code Clear [facility] UA Auto SS Color (U) Yellow (05/25/23 7:52 PM) Normal Yellow [facility] UA Auto SS Epithelial cells.squamous LM.HPF (Urine sed) [#/Area] 3-4 /HPF Normal 0-2/HPF [facility] UA Auto SS Glucose Test strip (U) [Mass/Vol] Negative (05/25/23 7:52 PM) Normal Negative [facility] UA Auto SS Hemoglobin Ql (U) Negative (05/25/23 7:52 PM) Normal Negative [facility] UA Auto SS Ketones (U) [Mass/Vol] Negative (05/25/23 7:52 PM) Normal Negative [facility] UA Auto SS Reddell.plasma/Lithi um.RBC (Bld) [Mass ratio] 0-3 /HPF Normal 0-3/HPF [facility] UA Auto SS Mucus Ql (Urine sed) 1+ (05/25/23 7:52 PM) Normal [facility] UA Auto SS Nitrite Ql (U) Negative (05/25/23 7:52 PM) Normal Negative [facility] UA Auto SS pH (U) 6.0 *NA* (05/25/23 7:52 PM) Invalid Interpretation Code 5.0 - 9.0 [facility] UA Auto SS Protein (U) [Mass/Vol] Trace *ABN* (05/25/23 7:52 PM) Invalid Interpretation Code Negative [facility] UA Auto SS Specific gravity (U) [Rel density] 1.025 *NA* (05/25/23 7:52 PM) Invalid Interpretation Code 1.005 - 1.030 [facility] UA Auto SS UA Spec Desc Clean Catch (05/25/23 7:52 PM) Normal [facility] UA Auto SS Urobilinogen Qn (U) 0.4835244 {Keyla'U}/dL Normal 0.0 - 1.0 EU/dL [facility] UA Auto SS WBC Auto Ql (U) 1+ *ABN* (05/25/23 7:52 PM) Invalid Interpretation Code Negative [facility] UA Auto SS WBC LM.HPF (Urine sed) [#/Area] 6-15 /HPF Invalid Interpretation Code 0-5/HPF [facility] UA Auto SS eGFRon 05-25-2023 GFR/1.73 sq M.predicted among non-blacks MDRD (S/P/Bld) [Vol rate/Area] 132 mL/min/1.73 m2 Normal >=59 [facility] Comment on above: Order Comment: Order added by Discern Expert. Result Comment: Manager Client Service sammie kidney disease could be indicated at eGFR's of less than 60 mL/min/1.73m2. Kidney failure is indicated at less than 15 mL/min/1.73m2. Performed By: #### 2 483917, 6677363, 3843173, 3468818, 1701979, 78684204 #### [facility] [address] [place] [address] C diff Tox gens Stl Ql CORONA+p robeon 04-30-2023 C. difficile toxin genes CORONA+probe Ql (Stl) Negative Normal Negative for C. difficile toxin by PCR [facility] Comment on above: Order Comment: Speci men Type: STOOL SPECIMENOrdering Facility: [facility] Address: [address] [place] [address] Performed By: #### 5 4067-4 ####[facility] LABCLIA [id number] [id number] CBC W Auto Differential pane l (Bld)on 04-30-2023 Basophils (Bld) [#/Vol] 10*3/uL Normal <0.11 [facility] Comment on above: Order Comment: Speci men Type: BLOOD SPECIMENOrdering Facility: [facility] Address: [address] [place] [address] Performed By: #### 5 7021-8 ####[facility] LABORATORYCLIA [id number] [address] [place] Basophils/100 WBC (Bld) 0.3 % Normal [facility] Comment on above: Order Comment: Speci men Type: BLOOD SPECIMENOrdering Facility: [facility] Address: [address] [place] [address] Performed By: #### 5 7021-8 ####[facility] DISTRICT[facility] [id number] [address] Differential cell count method Nom (Bld) Auto Normal [facility] Comment on above: Order Comment: Speci men Type: BLOOD SPECIMENOrdering Facility: [facility] Address: [address] [place] [address] Performed By: #### 5 7021-8 ####[facility] DISTRICTIA [id number] [place] [address] [place] Eosinophils (Bld) [#/Vol] 0.05 10*3/uL Normal <0.46 [facility] Comment on above: Order Comment: Speci men Type: BLOOD SPECIMENOrdering Facility: [facility] Address: [address] [place] [address] Performed By: #### 5 7021-8 ####[facility] LABORATORYIA [id number] [address] [place] Eosinophils/100 WBC (Bld) 0.8 % Normal [facility] Comment on above: Order Comment: Speci men Type: BLOOD SPECIMENOrdering Facility: [facility] Address: [address] [place] [address] Performed By: #### 5 7021-8 ####[facility] LABORATORYCLIA [id number] [address] [place] Erythrocyte distribution width (RBC) [Ratio] 14.0 % Normal 11.5-15.0 [facility] Comment on above: Order Comment: Speci men Type: BLOOD SPECIMENOrdering Facility: [facility] Address: [address] [place] [address] Performed By: #### 5 7021-8 ####[facility] LABORATORYIA [id number] [address] [place] Hematocrit (Bld) [Volume fraction] 35.6 % Low 36.0-46.0 [facility] Comment on above: Order Comment: Speci men Type: BLOOD SPECIMENOrdering Facility: [facility] Address: [address] [place] [address] Performed By: #### 5 7021-8 ####[facility] LABORATORYIA [id number] [place] [address] [place] Hemoglobin (Bld) [Mass/Vol] 11.2 g/dL Low 11.5-15.5 [facility] Comment on above: Order Comment: Speci men Type: BLOOD SPECIMENOrdering Facility: [facility] Address: [address] [place] [address] Performed By: #### 5 7021-8 ####[facility] LABORATORYIA [id number] [address] [place] Immature granulocytes (Bld) [#/Vol] 10*3/uL Normal <0.10 [facility] Comment on above: Order Comment: Speci men Type: BLOOD SPECIMENOrdering Facility: [facility] Address: [address] [place] [address] Performed By: #### 5 7021-8 ####[facility] LABORATORYIA [id number] [address] [place] Immature granulocytes/100 WBC (Bld) 0.3 % Normal [facility] Comment on above: Order Comment: Speci men Type: BLOOD SPECIMENOrdering Facility: [facility] Address: [address] [place] [address] Performed By: #### 5 7021-8 ####[facility] DISTRICT[facility] [id number] [address] [place] Lymphocytes (Bld) [#/Vol] 1.35 10*3/uL Normal 1.00-4.00 [facility] Comment on above: Order Comment: Speci men Type: BLOOD SPECIMENOrdering Facility: [facility] Address: [address] [place] [address] Performed By: #### 5 7021-8 ####[facility] [id number] [address] [place] Lymphocytes/100 WBC (Bld) 22.5 % Normal [facility] Comment on above: Order Comment: Speci men Type: BLOOD SPECIMENOrdering Facility: [facility] Address: [address] [place] [address] Performed By: #### 5 7021-8 ####[facility] [id number] [address] [place] MCH (RBC) [Entitic mass] 25.3 pg Low 26.0-34.0 [facility] Comment on above: Order Comment: Speci men Type: BLOOD SPECIMENOrdering Facility: [facility] Address: [address] [place] [address] Performed By: #### 5 7021-8 ####[facility] [id number] [address] [place] MCHC (RBC) [Mass/Vol] 31.5 g/dL Normal 30.5-36.0 [facility] Comment on above: Order Comment: Speci men Type: BLOOD SPECIMENOrdering Facility: [facility] Address: [address] Performed By: #### 5 7021-8 ####[facility] LABORATORYIA [id number] [address] [place] MCV (RBC) [Entitic vol] 80.4 fL Normal 80.0-100.0 [facility] Comment on above: Order Comment: Speci men Type: BLOOD SPECIMENOrdering Facility: [facility] Address: [address] [place] [address] Performed By: #### 5 7021-8 ####[facility] LABORATORYCLIA [id number] [place] [address] [place] Monocytes (Bld) [#/Vol] 0.35 10*3/uL Normal <0.87 [facility] Comment on above: Order Comment: Speci men Type: BLOOD SPECIMENOrdering Facility: [facility] Address: [address] [address] Performed By: #### 5 7021-8 ####[facility] DISTRICTIA [id number] [address] [place] Monocytes/100 WBC (Bld) 5.8 % Normal [facility] Comment on above: Order Comment: Speci men Type: BLOOD SPECIMENOrdering Facility: [facility] Address: [address] [address] Performed By: #### 5 7021-8 ####[facility] DISTRICTIA [id number] [place] [address] [place] Neutrophils (Bld) [#/Vol] 4.22 10*3/uL Normal 1.45-7.50 [facility] Comment on above: Order Comment: Speci men Type: BLOOD SPECIMENOrdering Facility: [facility] Address: [address] [address] Performed By: #### 5 7021-8 ####[facility] DISTRICTIA [id number] [address] [place] Neutrophils/100 WBC (Bld) 70.3 % Normal [facility] Comment on above: Order Comment: Speci men Type: BLOOD SPECIMENOrdering Facility: [facility] Address: [address] [address] Performed By: #### 5 7021-8 ####[facility] LABORATORYCLIA [id number] [facility] [address] [place] Nucleated RBC (Bld) [#/Vol] 10*3/uL Normal <0.01 [facility] Comment on above: Order Comment: Speci men Type: BLOOD SPECIMENOrdering Facility: [facility] Address: [address] [address] Performed By: #### 5 7021-8 ####[facility] LABORATORYIA [id number] [place] [address] [place] Nucleated RBC/100 WBC (Bld) [Ratio] 0.0 /100 WBC Normal [facility] Comment on above: Order Comment: Speci men Type: BLOOD SPECIMENOrdering Facility: [facility] Address: [address] [address] Performed By: #### 5 7021-8 ####[facility] DISTRICTIA [id number] [facility] [place] [address] [place] Platelet mean volume (Bld) [Entitic vol] 10.0 fL Normal 9.0-12.7 [facility] Comment on above: Order Comment: Speci men Type: BLOOD SPECIMENOrdering Facility: [facility] Address: [address] [address] Performed By: #### 5 7021-8 ####[facility] LABORATORYIA [id number] [facility] [place] [address] [place] Platelets (Bld) [#/Vol] 276 10*3/uL Normal 150-400 [facility] Comment on above: Order Comment: Speci men Type: BLOOD SPECIMENOrdering Facility: [facility] Address: [address] [address] Performed By: #### 5 7021-8 ####[facility] LABORATORYIA [id number] [facility] [place] [address] [place] RBC (Bld) [#/Vol] 4.43 10*6/uL Normal 3.90-5.20 [facility] Comment on above: Order Comment: Speci men Type: BLOOD SPECIMENOrdering Facility: [facility] Address: [address] [id number] Performed By: #### 5 7021-8 ####[facility] LABORATORYCLIA [id number] [place] [address] [facility] WBC (Bld) [#/Vol] 6.01 10*3/uL Normal 3.70-11.00 [facility] Comment on above: Order Comment: Speci men Type: BLOOD SPECIMENOrdering Facility: [facility] Address: [address] [place] [address] Performed By: #### 5 7021-8 ####[facility] LABORATORYCLIA [id number] [place] [address] [facility] CONSULTon 04-30-2023 CONSULT HNO ID: [id number] Author: Dawn Cabello APRN.CNP Service: Gastroenterology Author Type: Nurse Practitioner Type: Consults Filed: 04/30/2023 1:04 PM Note Text: CONSULT: GI SERVICE SERVICE DATE: 04/30/2023 SERVICE TIME: 1014 REASON FOR CONSULT: suspected crohn's flare REQUESTING PHYSICIAN: Dr. Parham PRIMARY CARE PHYSICIAN: Kale Rendon MD ASSESSMENT/PLAN 1.) Chron's disease, suspected flare 2.) Microcytic anemia, mild (Hgb 11.2) 27-year-old G2, P1 13-week female female who presents to the emergency department for evaluation of abdominal pain Follows with GI, recent summary of care/imaging/colon per HPI Recommended for biologic/imuran therapy - has not started remicade, awaiting approval. Only took 2 doses imuran until she found out she was and stopped in February Per pt no recent steroids CRP 2.9 (04/18), WSR 31 (01/16) Recent Colonoscopy/ileoscopy 12/2022 - details listed in HPI Recently had updated pre-biologic testing Abd exam soft, non-distended, mild diffuse abdominal tenderness moderate lower abdominal tenderness on palpation, +BS, RLQ ostomy which is prolapsed (beefy/red) with brown liquid output Plan: -no recent stool studies, will obtain (EBP, cdiff, fecal heriberto) -check CRP/ESR - transfer to in progress although pt just needs to get started on remicade. Would not recommend steroids given early in (only 13 weeks - high risk of cleft palate and other associated risks for fetus) - Need close follow up with her GI and [facility] at [facility] main Discussed case with Dr. Ornelas Subjective Ms. Aguilar is a 27-year-old G2, P1 13-week female female who presents to the emergency department for evaluation of abdominal pain. Patient has a history of Crohn's disease dx in 2013 c/b perinanal involvement s/p loop ileostomy ' and states that she has been having a flare however is not on any medications for her Crohn's currently with being and previously stated issues with obtaining via insurance. She previously developed antibodies to Humira several years back and was planned to start both IFX and Imuran as otpt however neither were initiated 2/2 . She does have an ostomy bag and has noticed increased output, denies black or bloody stool. Reports lower abd pain. Admits to chills without fever. Associated with N/V, denies hematemesis or coffee ground emesis. Denies vaginal bleeding, dysuria, hematuria, diarrhea/constipation. She does still past hard formed stool from the rectum as well even though she has loop ileostomy. States that she was seen at [facility] ER about a week and a half ago and they wanted to admit her to the hospital however she had to take care of her child at home, states that she is agreeable to admission at this time. She went home on 2 week prednisone taper and was told to follow up with GI. She was previously given 40 mg Prednisone taper after hospital admission 01/16-01/21. Although pt states no recent steroid therapy. She is working on getting coverage for remicade so she can start. Pt hoping for reversal of her ostomy but states she was told that [facility] would recommend doing complete colectomy which she is not wanting. Last Imaging MRe (01/20/2023) Impression: Possible mild inflammatory change of the terminal ileum, distal to the ileostomy. Otherwise, no active inflammatory small bowel Crohn's disease. Probable mild inflammatory changes of the mid to distal descending colon. Persistent active perianal disease, similar to prior CT although improved from prior MRI. No perianal abscess. Last Endoscopy Ileoscopy and Colonoscopy (01/18/2023)- Dr. Quinones Impression (ileoscopy): - Moderate to severe inflammed mucosa was seen in the colon. Biopsied. Impression (colonoscopy): - Preparation of the colon was fair. - Mucosal ulceration in the sigmoid colon. Biopsies taken during ileoscopy. - No specimens collected. Pathology: A. Colon, random, biopsy: - Colonic mucosa with patchy active chronic colitis with focal erosion and reactive epithelial changes. - Focal mucosal base granulomata. - No dysplasia seen. OV 03/05/23 Yfn Alex, GI GENERAL CLERK: IMPRESSION (copied from previous notes and reflects today's medical decision making): Rola Aguilar is a 27 year old female with PMHx of SB/LB Crohn's Disease with perianal involvement (dx 2013) s/p DLI in 2018- since then she has not been on any IBD related medications. Previously treated with prednisone, Adalimumab ([phone], developed antibodies), and Ustekinumab ([phone], lost insurance). She recently was discharged from the hospital (from 01/08-01/21/2023) for abdominal pain, bleeding and stool per rectum. 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 She was started on IVCS with tr (more content not included)... Normal [facility] CRP SerPl-ncon 04-30-2023 CRP [Mass/Vol] 4.7 mg/dL High <0.9 [facility] Comment on above: Order Comment: Speci men Type: BLOOD SPECIMENOrdering Facility: [facility] Address: [address] [place] [address] Performed By: #### 1 988-5, 45933-6, 3040-3, 98774-4 ####[facility] LABORATORYCLIA [id number] [facility] [address] [place] Calprotectin (Stl) [Mass/Mas s]on 04-30-2023 CALPROTECTIN, FECAL INTERP Elevated Abnormal Normal [facility] Comment on above: Order Comment: Speci men Type: STOOL SPECIMENOrdering Facility: [facility] Address: [address] [place] [address] Result Comment: On 2022, [facility] [employer] implemented a new fecal calprotectin method, the [employer] Calprotectin assay. For assistance with interpretation of results in patients undergoing serial monitoring, contact Client Services at [phone] or [phone] to discuss options, preferably within 7 days of issuing this report. Interpretation: <50.0 ug/g: Normal 50.0 ug/g - 120.0 ug/g: Borderline elevated. Re-evaluation in 4-6 weeks is recommended if clinically indicated. >120.0 ug/g: Elevated Performed By: #### 3 8445-3 ####[facility] LABCLIA [id number] [place] [address] [place] CALPROTECTIN, FECAL QUANTITATIVE 200 ug/g High <50 [facility] Comment on above: Order Comment: Speci men Type: STOOL SPECIMENOrdering Facility: [facility] Address: [address] [place] [address] Performed By: #### 3 8445-3 ####[facility] LABCLIA [id number] [address] [id number] [place] Comprehensive metabolic 2000 panelon 04-30-2023 Albumin [Mass/Vol] 4.3 g/dL Normal 3.9-4.9 [facility] Comment on above: Order Comment: Speci men Type: BLOOD SPECIMENOrdering Facility: [facility] Address: [address] [place] [address] Performed By: #### 1 988-5, 24294-1, 3040-3, 65783-5 ####[facility] LABORATORYCLIA [id number] [place] [address] [place] ALP [Catalytic activity/Vol] 75 U/L Normal 34-123 [facility] Comment on above: Order Comment: Speci men Type: BLOOD SPECIMENOrdering Facility: [facility] Address: [address] [phone] Performed By: #### 1 988-5, 32108-5, 3040-3, 99391-2 ####[facility] LABORATORYCLIA [id number] [place] [address] [place] ALT [Catalytic activity/Vol] 11 U/L Normal 7-38 [facility] Comment on above: Order Comment: Speci men Type: BLOOD SPECIMENOrdering Facility: [facility] Address: [address] Performed By: #### 1 988-5, 85468-5, 3040-3, ####[facility] LABORATORYCLIA [id number] [place] [address] [place] Anion gap [Moles/Vol] 13 mmol/L Normal 9-18 [facility] Comment on above: Order Comment: Speci men Type: BLOOD SPECIMENOrdering Facility: [facility] Address: [address] [address] Performed By: #### 1 988-5, 51273-8, 3040-3, ####[facility] AREACLIA [id number] [place] [address] [place] AST [Catalytic activity/Vol] 17 U/L Normal 13-35 [facility] Comment on above: Order Comment: Speci men Type: BLOOD SPECIMENOrdering Facility: [facility] Address: [address] [address] Performed By: #### 1 988-5, 56164-3, 3040-3, ####[facility] LABORATORYCLIA [id number] [place] [address] [place] Bilirubin [Mass/Vol] 0.4 mg/dL Normal 0.2-1.3 [facility] Comment on above: Order Comment: Speci men Type: BLOOD SPECIMENOrdering Facility: [facility] Address: [address] [place] [address] Performed By: #### 1 988-5, 44115-4, 3040-3, ####[facility] LABORATORYCLIA [id number] [place] [address] [place] Calcium [Mass/Vol] 9.4 mg/dL Normal 8.5-10.2 [facility] Comment on above: Order Comment: Speci men Type: BLOOD SPECIMENOrdering Facility: [facility] Address: [address] [place] [address] Performed By: #### 1 988-5, 79108-6, 3039-3, ####[facility] LABORATORYCLIA [id number] [place] [address] [place] Chloride [Moles/Vol] 102 mmol/L Normal 97-105 [facility] Comment on above: Order Comment: Speci men Type: BLOOD SPECIMENOrdering Facility: [facility] Address: [address] [place] [address] Performed By: #### 1 988-5, 66275-8, 3039-3, ####[facility] DISTRICTIA [id number] [place] [address] [place] CO2 [Moles/Vol] 21 mmol/L Low 22-30 [facility] Comment on above: Order Comment: Speci men Type: BLOOD SPECIMENOrdering Facility: [facility] Address: [address] [place] [address] Performed By: #### 1 988-5, 54621-5, 3039-3, ####[facility] DISTRICTIA [id number] [place] [address] [place] Creatinine [Mass/Vol] 0.65 mg/dL Normal 0.58-0.96 [facility] Comment on above: Order Comment: Speci men Type: BLOOD SPECIMENOrdering Facility: [facility] Address: [address] [place], [place] [address] Performed By: #### 1 988-5, 29877-8, 3039-3, ####[facility] LABORATORYIA [id number] [place] [address] [place] ESTIMATED GLOMERULAR FILTRATION RATE 124 mL/min/1.73m??? Normal >=60 [facility] Comment on above: Order Comment: [place]a [place] ri[place] Type: BLOOD SPECIMENOrdering Facility: [facility] Address: [address] [place] [address] Result Comment: Alysha mated Glomerular Filtration Rate (eGFR) is calculated using the 2020 CKD-EPI creatinine equation. This equation utilizes serum creatinine, sex, and age as parameters. The creatinine assay has traceable calibration to isotope dilution-mass spectrometry. Refer to KDIGO guidelines for clinical interpretation. In patients with unstable renal function, e.g. those with acute kidney injury, the eGFR may not accurately reflect actual GFR. Performed By: #### 1 988-5, 42215-0, 0-3, 33131-9 ####[facility] DISTRICTIA [id number] [place] [address] [place] Glucose [Mass/Vol] 86 mg/dL Normal 74-99 [facility] Comment on above: Order Comment: [place]a [place] ri[place] Type: BLOOD SPECIMENOrdering Facility: [facility] Address: [address] [place], [place] [address] Result Comment: The [place] Diabetes Association (ADA) provides guidance for cutoff values for fasting glucose and random glucose. The ADA defines fasting as no caloric intake for at least 8 hours. Fasting plasma glucose results between 100 to 125 mg/dL indicate increased risk for diabetes (prediabetes). Fasting plasma glucose results greater than or equal to 126 mg/dL meet the criteria for diagnosis of diabetes. In the absence of unequivocal hyperglycemia, results should be confirmed by repeat testing. In a patient with classic symptoms of hyperglycemia or hyperglycemic crisis, random plasma glucose results greater than or equal to 200 mg/dL meet the criteria for diagnosis of diabetes. Reference: Standards of Medical Care in Diabetes 2016, [place] [employer] Association. Diabetes Care. 2016.39(Suppl 1). Performed By: #### 1 988-5, 49142-4, 3040-3, 92456-5 ####[facility] LABORATORYCLIA [id number] [place] [address] [place] Potassium [Moles/Vol] 3.7 mmol/L Normal 3.7-5.1 [facility] Comment on above: Order Comment: Speci men Type: BLOOD SPECIMENOrdering Facility: [facility] Address: [address] [facility] [place] [address] Performed By: #### 1 988-5, 36980-3, 3040-3, 72965-1 ####[facility] LABORATORYCLIA [id number] [place] [address] [place] [facility] Protein [Mass/Vol] 8.7 g/dL High 6.3-8.0 [facility] Comment on above: Order Comment: Speci men Type: BLOOD SPECIMENOrdering Facility: [facility] Address: [address] [address] Performed By: #### 1 988-5, 33359-4, 3040-3, 45610-6 ####[facility] DISTRICTIA [id number] [place] [address] [facility] Sodium [Moles/Vol] 136 mmol/L Normal 136-144 [facility] Comment on above: Order Comment: Speci men Type: BLOOD SPECIMENOrdering Facility: [facility] Address: [address] [address] Performed By: #### 1 988-5, 65347-8, 3040-3, 48032-8 ####[facility] DISTRICTIA [id number] [place] [address] [facility] Urea nitrogen [Mass/Vol] 8 mg/dL Normal 7-21 [facility] Comment on above: Order Comment: Speci men Type: BLOOD SPECIMENOrdering Facility: [facility] Address: [address] [address] Performed By: #### 1 988-5, 73573-6, 3040-3, 59445-6 ####[facility] LABORATORYCLIA [id number] [place] [address] [place] [facility] ED NOTEon 04-30-2023 ED NOTE HNO ID: [id number] Author: Kanchan Stanton RN Service: ? Author Type: Registered Nurse Type: ED Notes Filed: 04/30/2023 9:01 PM Note Text: Report given to transport team and SHAHBAZ Espinoza at receiving facility. VSS. [facility] ED NOTE HNO ID: [id number] Author: Kanchan Stanton RN Service: ? Author Type: Registered Nurse Type: ED Notes Filed: 04/30/2023 9:04 PM Note Text: Pt states she does not want any pain meds for transport to . [facility] ED NOTE HNO ID: [id number] Author: Tom Rasheed RN Service: ? Author Type: Registered Nurse Type: ED Notes Filed: 04/30/2023 6:42 PM Note Text: Pt updated on current plan of care and bed assignment at . Pt agreeable to transfer at this time without further questions. [facility] ED NOTE HNO ID: [id number] Author: Tom Rasheed RN Service: ? Author Type: Registered Nurse Type: ED Notes Filed: 04/30/2023 2:21 PM Note Text: Pt states increasing pain with razor blade in my stomach description. Dr. Parham aware and orders being obtained. [facility] ED NOTE HNO ID: [id number] Author: Debbie Desir RN Service: ? Author Type: Registered Nurse Type: ED Notes Filed: 04/29/2023 11:17 PM Note Text: Report given to SHAHBAZ Worley. [facility] ED PROV NOTEon 04-30-2023 ED PROV NOTE HNO ID: [id number] Author: Bandar Parham DO Service: Emergency Medicine Author Type: Physician Type: ED Provider Notes Filed: 04/30/2023 4:04 PM Note Text: ED CONTINUATION OF CARE NOTE Code Status: Prior Assumed care from: Dr. Madden Presentation / Findings / Interventions / Plan / Items to Follow Up: ED Course as of 04/30/23 1603 Bandar Parham's Documentation Tue Apr 30, 2023 0722 Patient signed out to me pending transfer. Is being admitted for Crohn's colitis and abdominal pain. 13 weeks . Ultrasound shows live intrauterine . Lab work does not suggest sepsis. Vitals appear stable. Given pain medications antiemetic and steroids. 0907 Patient seen and examined. Resting comfortably, no acute distress. Heart is regular rate rhythm, EXTR clear, abdomen is soft nondistended, mildly tender in the lower abdomen with no rebound or guarding, ostomy noted. Soft stool per ostomy. I reviewed her lab work. We unfortunately are unable to transfer her to [facility] because there are no beds available at this time. We cannot board her at [facility] because she is . The NOM and transfer center are aware. Given she will likely be an ED hold, I did consult GI to have them consult and evaluate her while we await transfer. Discussed with Dawn covering the GI service. 1319 Evaluated by GI. Recommendations were reviewed. Pending transfer. Vital stable. Given pain medications. 1603 Care was signed out to Dr. Neal pending transfer. Patient updated and voices no other questions or concerns. Clinical Impressions as of 04/30/23 1603 Crohn's colitis (HCC) 13 weeks gestation of Left lower quadrant abdominal pain Nausea vomiting and diarrhea Crohn's disease of colon with complication (HCC) SIGNATURE: Bandar Parham DO PATIENT NAME: Rola Aguilar DATE: April 30, 2023 TIME: 4:03 PM PAGER/CONTACT #: BANDAR PARHAM 04/30/23 1604 Normal [facility] ED PROV NOTE HNO ID: [id number] Author: Tom Neal DO Service: Emergency Medicine Author Type: Physician Type: ED Provider Notes Filed: 04/30/2023 5:50 PM Note Text: ED CONTINUATION OF CARE NOTE Code Status: Prior Assumed care from: dr escobedo Presentation / Findings / Interventions / Plan / Items to Follow Up: pt is 13 weeks , was accepted to , but no beds and unable to board in our hospital, pt here for chrons flare, per dr escobedo GI came to assess pt today, pain control prn and fluids Gi to reassess in am if pt still here. ED Course as of 04/30/23 1603 Others' Documentation SatApr 30, 2023 0768 Patient signed out to me pending transfer. Is being admitted for Crohn's colitis and abdominal pain. 13 weeks . Ultrasound shows live intrauterine . Lab work does not suggest sepsis. Vitals appear stable. Given pain medications antiemetic and steroids. [GA] 0907 Patient seen and examined. Resting comfortably, no acute distress. Heart is regular rate rhythm, EXTR clear, abdomen is soft nondistended, mildly tender in the lower abdomen with no rebound or guarding, ostomy noted. Soft stool per ostomy. I reviewed her lab work. We unfortunately are unable to transfer her to [facility] because there are no beds available at this time. We cannot board her at [facility] because she is . The NOM and transfer center are aware. Given she will likely be an ED hold, I did consult GI to have them consult and evaluate her while we await transfer. Discussed with Dawn covering the GI service. [GA] 1319 Evaluated by GI. Recommendations were reviewed. Pending transfer. Vital stable. Given pain medications. [GA] 1603 Care was signed out to Dr. Neal pending transfer. Patient updated and voices no other questions or concerns. [GA] ED Course User Index [GA] Bandar Parham DO Clinical Impressions as of 04/30/23 1603 Crohn's colitis (HCC) 13 weeks gestation of Left lower quadrant abdominal pain Nausea vomiting and diarrhea Crohn's disease of colon with complication (HCC) Medical Decision Making Called on bed update, still no bed a [facility] pt updated and is stable SIGNATURE: Tom Neal DO PATIENT NAME: Rola Aguilar DATE: April 30, 2023 TIME: 4:03 PM PAGER/CONTACT #: TOM NEAL 04/30/23 1605 TOM NEAL 04/30/23 1756 Normal [facility] ED PROV NOTE HNO ID: [id number] Author: Fernanda Madden DO Service: ? Author Type: Physician Type: ED Provider Notes Filed: 04/30/2023 6:36 AM Note Text: ED Provider Note Patient Name: Rola Aguilar : 1995 SERVICE DATE: 04/29/23 History Patient presents with: Abdominal Pain Palpitations Pt presents to the ER via private car. The pt presents with abdominal pain and palpitations. The pt admits to 9/10 cramping llq abdominal pain x 2 weeks. The pt has a longstanding hx of crohns disease. She was seen at [facility] for these same symptoms and recommendations were made for her to stay for obs. The pt was unable to stay due to childcare issues. She was on imuran but that medication was stopped when she became . She has not seen gi for these symptoms yet, she has an appointment in 2 days. Pt states the pain has been persistent llq. No radiation. Worse with any po intake. Better with nothing. No home treatment. N/v x days. She states she has vomited x 3 today. No blood or melena. Last meal was yesterday. No po intake today. She states her ostomy output has become pure brown liquid x 3 days. Pt denies any blood. Triage noted blood in stool, pt denies at this time. She admits to chills. No fevers. No falls. No urinary symptoms. No vaginal bleeding. No vaginal d/c. Lmp 01/30/23. . She has had care but states she is in the process of changing ob doctors due to her hx of crohns dz. She has not been on any steroids recently. No back pain. No pelvic pain or pressure. No vaginal d/c of leakage. She admits to palps today due to dehydration. She notes she gets palps when she is dehydrated. No current palps. No chest pain. No sob. 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 PAST SURGICAL HISTORY OF 08/26/2018 Exam under anesthesia, flexible sigmoidoscopy, incision and drainage of deep postanal space abscess, seton and drain placement. FAMILY HISTORY Problem Relation Age of Onset Colon Cancer Other Social History Tobacco Use Smoking status: Former Packs/day: 0.50 Types: Cigarettes Smokeless tobacco: Never Tobacco comments: 3 per day Vaping Use Vaping Use: Never used Substance and Sexual Activity Alcohol use: Yes Comment: 1 per week Drug use: No Sexual activity: Not on file ALLERGIES No Known Allergies Review of Systems Constitutional: Positive for chills. Negative for diaphoresis, fatigue and fever. HENT: Negative for congestion, dental problem, ear pain, facial swelling, nosebleeds, rhinorrhea, sore throat and trouble swallowing. Eyes: Negative for photophobia, pain and visual disturbance. Respiratory: Negative for cough, chest tightness and shortness of breath. Cardiovascular: Positive for palpitations (resolved). Negative for chest pain and leg swelling. Gastrointestinal: Positive for abdominal pain, blood in stool (per triage, pt denies at this time), diarrhea (liquid stool x 3 days), nausea and vomiting. Negative for abdominal distention. Genitourinary: Negative for difficulty urinating, dysuria, flank pain, frequency, hematuria and urgency. Musculoskeletal: Negative for arthralgias, back pain, joint swelling and neck pain. Skin: Negative for rash and wound. Neurological: Negative for dizziness, seizures, syncope, speech difficulty, weakness, light-headedness, numbness and headaches. Psychiatric/Behavioral : Negative for confusion and decreased concentration. Physical Exam Vitals BP Pulse Temp Temp src Resp SpO2 Weight Height 04/29/23 1848 04/29/23 1848 04/29/23 1848 04/29/23 1848 04/29/23 1848 04/29/23 1848 04/29/23 1846 -- 121/86 (!) 107 36.8 ?C (98.2 ?F) Oral 18 99 % 86.2 kg (190 lb) Physical Exam Vitals and nursing note reviewed. Constitutional: General: She is awake. She is not in acute distress. Appearance: Normal appearance. She is well-developed and well-groomed. She is not ill-appearing, toxic-appearing or diaphoretic. HENT: Head: Normocephalic and atraumatic. Jaw: There is normal jaw occlusion. Right Ear: Hearing and external ear normal. Left Ear: Hearing and external ear normal. Nose: Nose normal. Mouth/Throat: Lips: [place]. Mouth: Mucous membranes are moist. Pharynx: Oropharynx is clear. Eyes: General: Lids are normal. Vision grossly intact. Gaze aligned appropriately. No scleral icterus. Right eye: No discharge. Left eye: (more content not included)... Normal [facility] ESR Westergren method (Bld) [Velocity]on 04-30-2023 ESR (Bld) [Velocity] 40 mm/h High 0-20 [facility] Comment on above: Order Comment: Speci men Type: BLOOD SPECIMENOrdering Facility: [facility] Address: [address] [place] [address] Performed By: #### 4 537-7 ####[facility] LABCLIA [id number] [address] [place] Gastrointestinal pathogens i dentified CORONA+probe Nom (Stl)on 04-30-2023 Campylobacter sp DNA CORONA+probe Nom (Unsp spec) Not detected Normal Not Detected [facility] Comment on above: Order Comment: Speci men Type: STOOL SPECIMENOrdering Facility: [facility] Address: [address] [place] [address] Performed By: #### 7 9390-1 ####[facility] LABCLIA [id number] [address] [place] Salmonella sp DNA CORONA+probe Ql (Unsp spec) Not detected Normal Not Detected [facility] Comment on above: Order Comment: Speci men Type: STOOL SPECIMENOrdering Facility: [facility] Address: [address] [place] [address] Performed By: #### 7 9390-1 ####[facility] LABCLIA [id number] [address] [place] Shiga toxin stx gene CORONA+probe Nom (Unsp spec) Not detected Normal Not Detected [facility] Comment on above: Order Comment: Speci men Type: STOOL SPECIMENOrdering Facility: [facility] Address: [address] [place] [address] Performed By: #### 7 9390-1 ####[facility] LABCLIA [id number] [address] [place] Shigella sp DNA CORONA+probe Ql (Unsp spec) Not detected Normal Not Detected [facility] Comment on above: Order Comment: Speci men Type: STOOL SPECIMENOrdering Facility: [facility] Address: [address] [place] [address] Performed By: #### 7 9390-1 ####[facility] LABCLIA [id number] [facility] [id number] [place] HIGH SENSITIVITY TROPONIN T (INITIAL)on 04-30-2023 HIGH SENSITIVITY LUCY <6 Normal <12 [facility] Comment on above: Order Comment: [place] Type: BLOOD SPECIMENOrdering Facility: [facility] Address: [address] [place] [address] Result Comment: When assessing risk for acute coronary syndromes: In patients undergoing blood draw greater than or equal to 2 hours from symptom onset, with history of very low to moderate risk and non-ischemic ECG, an initial hs-Troponin T less than 12 ng/L AND a 1 hour delta hs-Troponin T less than 3 ng/L should be considered very low risk for 30 day MACE. Performed By: #### L [id number] ####[facility] DISTRICTIA [id number] [address] [place] HIGH SENSITIVITY TROPONIN T (SECOND)on 04-30-2023 HIGH SENSITIVITY LUCY <6 Normal <12 [facility] Comment on above: Order Comment: [place] Type: BLOOD SPECIMENOrdering Facility: [facility] Address: [address] [place] [address] Result Comment: When assessing risk for acute coronary syndromes: In patients undergoing blood draw greater than or equal to 2 hours from symptom onset, with history of very low to moderate risk and non-ischemic ECG, an initial hs-Troponin T less than 12 ng/L AND a 1 hour delta hs-Troponin T less than 3 ng/L should be considered very low risk for 30 day MACE. Performed By: #### L [id number] ####[facility] DISTRICT[facility] [id number] [place] [id number] [place] Lipase SerPl-cCncon 04-30-20 23 Lipase [Catalytic activity/Vol] 63 U/L High 16-61 [facility] Comment on above: Order Comment: [place] Type: BLOOD SPECIMENOrdering Facility: [facility] Address: [address] [address] Performed By: #### 1 988-5, 27592-9, 0-3, 96999-1 ####[facility] DISTRICT[facility] [id number] [place] [address] [place] Magnesium SerPl-mCncon 04-30 Magnesium [Mass/Vol] 1.8 mg/dL Normal 1.7-2.3 [facility] Comment on above: Order Comment: Speci men Type: BLOOD SPECIMENOrdering Facility: [facility] Address: [address] [place] [address] Performed By: #### 1 988-5, 96314-9, 3039-3, ####[facility] DISTRICT[facility] [id number] [place], [place] [id number] [place] [address] [place] Urinalysis complete panel (U )on 04-30-2023 Bacteria LM.HPF (Urine sed) [#/Area] Rare Abnormal None Seen [facility] Comment on above: Order Comment: Speci men Type: URINE SPECIMENOrdering Facility: [facility] Address: [address] [address] Performed By: #### 2 4356-8 ####[facility] [id number] [place] [address] [place] Bilirubin Ql (U) Negative Normal Negative [facility] Comment on above: Order Comment: Speci men Type: URINE SPECIMENOrdering Facility: [facility] Address: [address] [address] Performed By: #### 2 4356-8 ####[facility] [id number] [place] [address] [place] Clarity (Unsp spec) Clear Normal Clear [facility] Comment on above: Order Comment: Speci men Type: URINE SPECIMENOrdering Facility: [facility] Address: [address] [place] [address] Performed By: #### 2 4356-8 ####[facility] [id number] [place] [address] [place] Color (U) Colorless Normal yellow [facility] Comment on above: Order Comment: Speci men Type: URINE SPECIMENOrdering Facility: [facility] Address: [address] [address] Performed By: #### 2 4356-8 ####[facility] [id number] [place] [address] [place] Epithelial cells LM.HPF (Urine sed) [#/Area] Few Normal [facility] Comment on above: Order Comment: Speci men Type: URINE SPECIMENOrdering Facility: [facility] Address: [address] [place] [address] Performed By: #### 2 4356-8 ####[facility] [id number] [place] [address] [place] Glucose Test strip (U) [Mass/Vol] Negative Normal Trace, Negative [facility] Comment on above: Order Comment: Speci men Type: URINE SPECIMENOrdering Facility: [facility] Address: [address] [address] Performed By: #### 2 4356-8 ####[facility] [id number] [place] [address] [place] Hemoglobin Ql (U) Negative Normal Negative, Trace [facility] Comment on above: Order Comment: Speci men Type: URINE SPECIMENOrdering Facility: [facility] Address: [address] [address] Performed By: #### 2 4356-8 ####[facility] [id number] [place] [address] [place] Ketones Ql (U) 1+ Abnormal Negative, Trace [facility] Comment on above: Order Comment: Speci men Type: URINE SPECIMENOrdering Facility: [facility] Address: [address] [address] Performed By: #### 2 4356-8 ####[facility] [id number] [place] Leukocyte esterase Test strip Ql (U) Negative Normal Negative, 25 Cristela/uL [facility] Comment on above: Order Comment: Speci men Type: URINE SPECIMENOrdering Facility: [facility] Address: [address] [address] Performed By: #### 2 4356-8 ####[facility] [id number] [place] [address] [place] Nitrite Ql (U) Negative Normal Negative [facility] Comment on above: Order Comment: Speci men Type: URINE SPECIMENOrdering Facility: [facility] Address: [address] [place] [address] Performed By: #### 2 4356-8 ####[facility] [id number] [place] [address] [place] pH (U) 6.0 [pH] Normal 5.0-8.0 [facility] Comment on above: Order Comment: Speci men Type: URINE SPECIMENOrdering Facility: [facility] Address: [address] [place] [address] Performed By: #### 2 4356-8 ####[facility] [id number] [address] [place] Protein (U) [Mass/Vol] Negative Normal Trace, Negative [facility] Comment on above: Order Comment: Speci men Type: URINE SPECIMENOrdering Facility: [facility] Address: [address] [address] Performed By: #### 2 4356-8 ####[facility] [id number] [place] [address] [place] RBC LM.HPF (Urine sed) [#/Area] 0-3 /HPF Normal 0-3 /HPF [facility] Comment on above: Order Comment: Speci men Type: URINE SPECIMENOrdering Facility: [facility] Address: [address] [place] [address] Performed By: #### 2 4356-8 ####[facility] [id number] [place] [address] [place] [facility] Specific gravity (U) [Rel density] 1.008 Normal 1.005-1.030 [facility] Comment on above: Order Comment: Speci men Type: URINE SPECIMENOrdering Facility: [facility] Address: [address] [place] [address] Performed By: #### 2 4356-8 ####[facility] [id number] [place] [address] [facility] Urobilinogen Ql (U) Normal Normal Negative [facility] Comment on above: Order Comment: Speci men Type: URINE SPECIMENOrdering Facility: [facility] Address: [address] [place] [address] Performed By: #### 2 4356-8 ####[facility] [id number] [place] [id number] [place] WBC LM.HPF (Urine sed) [#/Area] 0-5 /HPF Normal 0-5 /HPF [facility] Comment on above: Order Comment: Speci men Type: URINE SPECIMENOrdering Facility: [facility] Address: [address] [place] [address] Performed By: #### 2 4356-8 ####[facility] [id number] [place] [id number] [facility] [place] ECG COMPLETEon 04-29-2023 ECG COMPLETE Ventricular Rate : 8 9 BPM Atrial Rate : 89 BPM P-R Interval : 148 ms QRS Duration : 76 ms Q-T Interval : 336 ms QTC Calculation(Bazett) : 408 ms Calculated P Laurel : 51 degrees Calculated R Laurel : 62 degrees Calculated T Laurel : 32 degrees Normal sinus rhythm Possible Left atrial enlargement Borderline ECG no stemi Confirmed by VIRGINIA GILES, MARA ([id number]), order editor Yee Mcdonald ([id number]) on 04/30/2023 8:43:13 AM NAME : ROLA AGUILAR PID : [id number] : 1995 Gender : Female Race : ORD : [id number] Procedure Date : Apr 29 2023 18:52:17 Edit Date : Apr 30 2023 08:43:14 Diagnosis: Normal sinus rhythm Possible Left atrial enlargement Borderline ECG no stemi Confirmed by MARA COLEMAN MD ([id number]), order editor Yee Mcdonald ([id number]) on 04/30/2023 8:43:13 AM Test Reason : Chest Pain Location : 302 : ED ED Overread By : MARA COLEMAN MD Edited By : Yee Mcdonald Referred By : , Acquired by : [id number], [facility] ED NOTEon 04-29-2023 ED NOTE HNO ID: [id number] Author: Debbie Desir RN Service: ? Author Type: Registered Nurse Type: ED Notes Filed: 04/29/2023 6:48 PM Note Text: Pt arrived to the ED from work with complaints of generalized abdominal pain, palpitations, chills, and n/v that started 2 wks ago. Pt reports she is currently having a Crohn's flare up and is 13wks . Pt stable at this time. [facility] ED Triage Noteon 04-29-2023 ED Triage Note HNO ID: [id number] Author: Justice Ortiz PA-C Service: ? Author Type: Physician Global Program Manager Type: ED Triage Notes Filed: 04/29/2023 7:02 PM Note Text: ED INTAKE NOTE Patient Name: Rola Aguilar Service Date: 04/29/23 BRIEF HPI: Patient is a 27-year-old G2, P1 13-week female female who presents to the emergency department for evaluation of abdominal pain. Patient has a history of Crohn's and states that she has been having a flare however is not on any medications for her Crohn's currently with being . She does have an ostomy bag and has intermittently noticed blood in the ostomy bag. Admits to chills without fever. Admits to nausea/vomiting. Denies vaginal bleeding, dysuria, hematuria, diarrhea/constipation. Notes that she has had some rectal bleeding. States that she was seen at main campus about a week and a half ago and they wanted to admit her to the hospital however she had to take care of her child at home, states that she is agreeable to admission at this time. BRIEF EXAM: Tachycardic, regular rhythm Bilateral lungs clear to auscultation Abdomen soft, diffusely tender to palpation without rebound or guarding with ostomy bag INTAKE WORKUP: CBC CMP Magnesium level Lipase Cardiac enzymes Urinalysis EKG SIGNATURE: Justice Ortiz PA-C Normal [facility] US DOPPLER COMPLETEon 2022 US DOPPLER COMPLETE * * *Final Report* * * DATE OF EXAM: Apr 29 2023 7:21PM [facility] 1033 - US DOPPLER COMPLETE / PROCEDURE REASON: Pelvic pain, positive beta-HCG, boiler out etiology suspected * * * * Physician Interpretation * * * * EXAMINATION: FIRST TRIMESTER TRANSVAGINAL AND TRANSABDOMINAL PELVIC ULTRASOUND CLINICAL HISTORY: Pain TECHNIQUE: Sonography of the pelvis was performed by transabdominal and transvaginal techniques. Images were obtained and stored in a permanent archive. MQ: USOB1_1 COMPARISON: 04/18/2023 RESULT: Uterus: - Orientation: Anteverted - Size: 10.5 x 10.9 x 7.1 cm - Myometrium: homogeneous echogenicity - Cervix: 3.4cm, closed with no funneling Gestation: - Intrauterine gestational sac: Single present - Yolk sac: Not seen - Embryo: Single present - Apison rump length: 6.8 cm, corresponding gestational age 13 weeks, 1 days -Gestational heart rate: present 162 bpm -Subgestational hematoma: Absent Right ovary: - Size : 2.6 x 1.1 x 0.9 cm - Normal sonographic appearance with physiologic follicles. Normal vascularity. Left ovary: - Size: 3.7 x 1.6 x 1.9 cm - Normal sonographic appearance with physiologic follicles. Normal vascularity. Pelvis free fluid: None. Ultrasound EDC: 11/08/2023 IMPRESSION: Single, live intrauterine gestation. Estimated Gestational Age: 13 weeks, 1 days by crown rump length. Blast Hole Driller: PSCB Transcribe Date/Time: Apr 29 2023 8:02P Dictated by : SUNIL LORENZ MD This examination was interpreted and the report reviewed and electronically signed by: SUNIL LORENZ MD on Apr 29 2023 8:10PM EST [id number] Normal [facility] US PREG TRANSABD <14 WKS LTD on 04-29-2023 US PREG TRANSABD <14 WKS LTD * * *Final Report* * * DATE OF EXAM: Apr 29 2023 7:18PM [facility] 1035 - US PREG TRANSABD <14 WKS LTD / PROCEDURE REASON: Pelvic pain, positive beta-HCG, boiler out etiology suspected * * * * Physician Interpretation * * * * EXAMINATION: FIRST TRIMESTER TRANSVAGINAL AND TRANSABDOMINAL PELVIC ULTRASOUND CLINICAL HISTORY: Pain TECHNIQUE: Sonography of the pelvis was performed by transabdominal and transvaginal techniques. Images were obtained and stored in a permanent archive. MQ: USOB1_1 COMPARISON: 04/18/2023 RESULT: Uterus: - Orientation: Anteverted - Size: 10.5 x 10.9 x 7.1 cm - Myometrium: homogeneous echogenicity - Cervix: 3.4cm, closed with no funneling Gestation: - Intrauterine gestational sac: Single present - Yolk sac: Not seen - Embryo: Single present - Apison rump length: 6.8 cm, corresponding gestational age 13 weeks, 1 days -Gestational heart rate: present 162 bpm -Subgestational hematoma: Absent Right ovary: - Size : 2.6 x 1.1 x 0.9 cm - Normal sonographic appearance with physiologic follicles. Normal vascularity. Left ovary: - Size: 3.7 x 1.6 x 1.9 cm - Normal sonographic appearance with physiologic follicles. Normal vascularity. Pelvis free fluid: None. Ultrasound EDC: 11/08/2023 IMPRESSION: Single, live intrauterine gestation. Estimated Gestational Age: 13 weeks, 1 days by crown rump length. Blast Hole Driller: PSCB Transcribe Date/Time: Apr 29 2023 8:02P Dictated by : SUNIL LORENZ MD This examination was interpreted and the report reviewed and electronically signed by: SUNIL LORENZ MD on Apr 29 2023 8:10PM EST [id number] Normal [facility] Discharge Instructionson Discharge Instructions [id number]. 00CD:127 Normal [facility] ED Clinical Summaryon 2022 ED Clinical Summary [address] [address] ED Clinical Summary Person Information Name: ROLA AGUILAR [place] Age: 27 Years : 1995 Sex: Female Language: Iraqi PCP: NONE, XXXX Marital Status: Single Phone: [phone] Visit Id: Visit Reason: Vomiting; Abdominal pain; CROHNS FLAREUP 12 WEEKS Speciality: Acuity: 3 Enc Type: Emergency Med Service: Emergency Arrival: 04/26/2023 22:10:17 Discharge: 04/27/2023 03:08:54 LOS: 000 04:58 Checkin: 04/26/2023 22:10:17 Checkout: 04/27/2023 03:08:54 Dispo Type: Home (Routine DC) EVENTS: Event Name Event Status Request Date/Time Start Date/Time Complete Date/Time Arrive Complete 04/26/2023 22:10:17 04/26/2023 22:10:17 04/26/2023 22:10:17 Document Home Meds Request 04/26/2023 22:10:17 Triage Complete 04/26/2023 22:10:17 04/26/2023 22:31:54 04/26/2023 22:31:54 Registration Complete 04/26/2023 22:30:16 04/26/2023 22:30:16 04/26/2023 22:30:16 Reg Complete Request 04/26/2023 22:30:16 Reg Bed Request Complete 04/26/2023 22:30:16 04/26/2023 22:30:16 04/26/2023 22:30:16 Pending Labs Complete 04/26/2023 22:33:12 04/27/2023 02:20:14 Lab Complete 04/26/2023 22:33:12 04/27/2023 02:20:14 Urine Collect Complete 04/26/2023 22:33:12 04/27/2023 02:20:14 Pending Labs Complete 04/26/2023 22:58:40 04/26/2023 22:58:40 04/26/2023 23:20:39 Lab Complete 04/26/2023 22:58:40 04/26/2023 22:58:40 04/26/2023 23:20:39 Pending Labs Complete 04/26/2023 23:08:36 04/26/2023 23:08:36 04/26/2023 23:08:45 Lab Complete 04/26/2023 23:08:36 04/26/2023 23:08:36 04/26/2023 23:08:45 Bed Assign Complete 04/26/2023 23:40:07 04/26/2023 23:40:07 04/26/2023 23:40:07 Dr Exam Complete 04/26/2023 23:40:07 04/26/2023 23:45:42 04/26/2023 23:45:42 RN Exam Complete 04/26/2023 23:40:07 04/27/2023 00:33:05 04/27/2023 00:33:05 Registration Request 04/26/2023 23:45:42 Dr Exam Complete 04/26/2023 23:49:13 04/26/2023 23:49:13 04/26/2023 23:49:13 Patient Care Request 04/27/2023 00:08:44 Meds Admin Request 04/27/2023 00:09:21 Pending Labs Complete 04/27/2023 00:37:47 04/27/2023 00:37:47 04/27/2023 00:37:47 Pending Labs Complete 04/27/2023 00:40:13 04/27/2023 00:40:13 04/27/2023 00:40:13 Discharge Complete 04/27/2023 02:26:42 04/27/2023 03:09:00 04/27/2023 03:09:00 Transfer Complete 04/27/2023 03:09:00 04/27/2023 03:09:00 04/27/2023 03:09:00 ADDRESS: [facility] [place] [phone] PHYS DOC NOTES: MEDICAL INFORMATION: Prescriptions Given: New Medications [facility]/pharmacy #[id number], [address] [place] [phone], [phone] metoclopramide (metoclopramide 10 mg oral tablet, disintegrating) 1 Tablets By Mouth every 6 hours as needed Nausea/Vomiting. Refills: 0. Medications to Continue with No Changes Other Medications acetaminophen-hydrocod one ([place] 325 mg-5 mg oral tablet) 1 Tablets By Mouth every 6 hours as needed for pain. Refills: 0. acetaminophen-hydrocod one ([place] 325 mg-5 mg oral tablet) 1 Tablets By Mouth every 6 hours as needed for pain. Refills: 0. acetaminophen-oxycodon e (Percocet 325 mg-5 mg Tab) 1 Tablets By Mouth every 6 hours as needed as needed for pain. Refills: 0. acetaminophen-oxycodon e (Percocet 5 mg-325 mg oral tablet) 1 Tablets By Mouth every 6 hours. Refills: 0. acetaminophen-oxycodon e (Percocet 5 mg-325 mg oral tablet) 1 Tablets By Mouth every 6 hours. Refills: 0. acetaminophen-oxycodon e (Percocet 5 mg-325 mg oral tablet) 1 Tablets By Mouth every 6 hours. Refills: 0. hydrOXYzine (Vistaril 25 mg Tab) 1-2 tab(s) By Mouth 4 times a day as needed as needed for anxiety. Refills: 0. lurasidone (Latuda 20 mg oral tablet) 1 Tablets By Mouth every day. Refills: 0. ondansetron (Zofran 4 mg Tab) 1 Tablets By Mouth every 8 hours as needed Nausea/Vomiting. Refills: 0. ondansetron (Zofran ODT 4 mg Tab-Dis) 1 Tablets By Mouth every 8 hours. Refills: 0. ondansetron (Zofran ODT 4 mg Tab-Dis) 1 Tablets By Mouth every 8 hours as needed Nausea/Vomiting. Refills: 0. predniSONE (predniSONE 10 mg Tab) 4 tab(s) Oral Daily for 1 week, then 3 tablets oral daily for 1 week, then 2 tablets oral daily for 1 week then 1 tablet oral daily for 1 week. Refills: 0. promethazine (Phenergan 25 mg Supp) 1 Suppositories By rectum every 6 hours as needed Nausea/Vomiting. Refills: 0. promethazine (promethazine 25 mg Tab) 1 Tablets By Mouth every 6 hours as needed as needed for nausea/vomiting. Refills: 0. PATIENT EDUCATION INFORMATION: Instructions: Second Trimester of , Bdhl-an-Ytqw; Crohn's Disease; Abdominal Pain, Adult, Stpw-uc-Cwyf Follow up: With: Address: When: Follow up with Dr Ozuna at [facility] In 3 days 04/30/2023 DIAGNOSIS: 1:Abdominal pain in female; 2:; 3:Nausea & vomiting Normal [facility] ED Note-Physicianon 04-27-20 ED Note-Physician Basic Information Time Seen: Luis A LEDESMA, Jess Amaya 04/26/2023 23:45 Chief Complaint started 2 weeks ago with a chrons flare up. Was at [facility] and put on steroids. says if pain was worse to go back to ER. Is 12 weeks History of Present Illness This patient presents to the emergency department with chief complaint of abdominal pain, nausea, vomiting. The patient states this has been going on for 2 weeks. She was seen at the [facility] diagnosed with acute exacerbation of Crohn's disease. She was placed on steroids. She states she went to the [facility] emergency department this evening, but there were 50 people in the waiting room ahead of her. She left there and came here. The patient is 12 weeks . The patient denies any fevers chills or sweats. She denies any constipation or diarrhea. She denies any urinary burning frequency or urgency. She denies any chest pain or shortness of breath. She denies any vaginal discharge or bleeding. Review of Systems Constitutional: Denies weight loss, fevers, chills, sweats, malaise Eyes: Denies visual changes, eye pain, double vision, scotomas, floaters ENT: Denies runny nose, epistaxis, sinus pain, ear pain, ringing in ears, tooth ache, sore throat, pain with swallowing Cardiovascular: Denies chest pain, shortness of breath, orthopnea, edema, palpitations, loss of consciousness, claudication Respiratory: Denies cough, sputum production, wheezing, hemoptysis, shortness of breath, dyspnea on exertion Gastrointestinal: Denies unintentional weight loss, difficulty swallowing, indigestion, bloating, cramping, diarrhea, constipation, hematochezia, melena. + Abdominal pain, nausea, vomiting Genitourinary: Denies any incontinence of urine, dysuria, hematuria, nocturia, polyuria, hesitancy, frequency, urgency, burning Musculoskeletal: Denies joint pain, morning stiffness, joint swelling, decreased range of motion, crepitus Integumentary: Denies any pruritus, rashes, lesions, wounds, petechiae Neurologic: Denies any changes in sight, smell, hearing, taste, seizures, headache, paresthesia, numbness, weakness, balance disturbance Psychiatric denies any depression, change in sleep patterns, anxiety, difficulty concentrating, paranoia, anhedonia, lack of energy, socorro Hematologic/lymphatic: Denies any purpura, petechiae, excessive bleeding, bruising Physical Exam Vitals & Measurements T: 36.8 ?C(Oral) HR: 76(Monitored) RR: 19 BP: 105/72 SpO2: 99% HT: 167.64 cm WT: 87 kg BMI: 30.96 Vital signs and nursing notes reviewed. General: Awake, alert, NAD. HEENT: Head is normocephalic, atraumatic. PERRL. EOMI. Sclerae are anicteric. External ears are normal. TMs are intact bilaterally. Canals are clear bilaterally. Nares are patent bilaterally. Oral mucosa is pink and moist. No lesions noted. Tongue protrudes in midline. Uvula rises with phonation. Neck is supple, no no palpable adenopathy. No JVD. Trachea is midline. Thorax: Symmetrical rise and fall Lungs: Clear to auscultation throughout all weinberg, no wheezes, no crackles Heart: Regular rate and rhythm. No murmur, gallop, or rub Abdomen: Mild diffuse tenderness on palpation. Bowel sounds are present active and normal. No organomegaly. No palpable masses. No CVA tenderness. FHT 120 Extremities: Motor sensory pulses intact x4 extremities. No lower extremity edema. Skin: No lesions, rashes, ulcerations. No bruising or petechiae. Color appropriate, warm and dry Neuro: No oriented x3, no focal neuro deficits Psych: Mood and affect are normal Medical Decision Making MEDICAL DECISION MAKING Number and Complexity of Problems Differential Diagnosis: Exacerbation of Crohn's disease, electrolyte imbalance, acute lower urinary tract infection MDM Data External documents reviewed: Not applicable My EKG interpretation: Noted in chart if applicable My CT interpretation: Noted in chart if applicable My X-ray interpretation: Noted in chart if applicable My Ultrasound interpretation: Not applicable Decision rules/scores evaluated: Noted in chart if applicable Discussed with: Not applicable Treatment and Disposition ED Course: Patient was interviewed and examined. Appropriate ER work-up was initiated. Patient was given ondansetron IV for nausea here. Patient is given IV fluid hydration. White blood count 7.0, hemoglobin 11.6, hematocrit 35.4, platelets of 272. Sodium 136, potassium 3.6, chloride 103, CO2 22, BUN 10, creatinine 0.8, glucose is 91, calcium is 9.5. Given that the patient's laboratory data is unremarkable, the risk associated with further imaging studies given that the patient is 12 weeks is outweighed by any potential acute findings/benefits. I discussed this with the patient. She was in agreement for no further imaging and understands the rationale for this. UA was unremarkable. Upon reevaluation, the patient is feeling much better. I discussed the discharge diagnosis, plan of care, home-go (more content not included)... Normal [facility] Comment on above: Result Comment: Elec tronically Signed By: Jess Gunn PA-C\.br\Date and Time Signed: 04/27/23 03:13 EDT\.br\Electronically Co-Signed By: Alfred Graham DO\.br\Date and Time Co-Signed: 04/27/23 07:54 EDT ED Patient Education Noteon 04-27-2023 ED Patient Education Note Gastroenterology Abdominal Pain, Adult Many things can cause belly (abdominal) pain. Most times, belly pain is not dangerous. Many cases of belly pain can be watched and treated at home. Sometimes, though, belly pain is serious. Your doctor will try to find the cause of your belly pain. Follow these instructions at home: Medicines ? Take mutr-mzg-mjecrjz and prescription medicines only as told by your doctor. ? Do not take medicines that help you poop (laxatives) unless told by your doctor. General instructions ? Watch your belly pain for any changes. ? Drink enough fluid to keep your pee (urine) pale yellow. ? Keep all follow-up visits as told by your doctor. This is important. Contact a doctor if: ? Your belly pain changes or gets worse. ? You are not hungry, or you lose weight without trying. ? You are having trouble pooping (constipated) or have watery poop (diarrhea) for more than 2?3 days. ? You have pain when you pee or poop. ? Your belly pain wakes you up at night. ? Your pain gets worse with meals, after eating, or with certain foods. ? You are vomiting and cannot keep anything down. ? You have a fever. ? You have blood in your pee. Get help right away if: ? Your pain does not go away as soon as your doctor says it should. ? You cannot stop vomiting. ? Your pain is only in areas of your belly, such as the right side or the left lower part of the belly. ? You have bloody or black poop, or poop that looks like tar. ? You have very bad pain, cramping, or bloating in your belly. ? You have signs of not having enough fluid or water in your body (dehydration), such as: ? Dark pee, very little pee, or no pee. ? Cracked lips. ? Dry mouth. ? Sunken eyes. ? Sleepiness. ? Weakness. ? You have trouble breathing or chest pain. Summary ? Many cases of belly pain can be watched and treated at home. ? Watch your belly pain for any changes. ? Take zshx-cvf-slphnzs and prescription medicines only as told by your doctor. ? Contact a doctor if your belly pain changes or gets worse. ? Get help right away if you have very bad pain, cramping, or bloating in your belly. This information is not intended to replace advice given to you by your health care provider. Make sure you discuss any questions you have with your health care provider. Document Revised: 01/18/2020 Document Reviewed: 01/18/2020 [employer] Patient Education ? 2022 [employer]. Immunology Crohn's Disease Crohn's disease is a long-lasting (chronic) disease that affects the gastrointestinal (GI) tract. Crohn's disease often causes irritation and inflammation in the small intestine and the beginning of the large intestine, but it can affect any part of the GI tract. Crohn's disease is part of a group of illnesses that are known as inflammatory bowel disease (IBD). Crohn's disease may start slowly and get worse over time. Symptoms may come and go. They may also go away for months or even years at a time (remission). What are the causes? The exact cause of this condition is not known. It may involve a response that causes your body's disease-fighting system (immune system) to attack healthy cells and tissues (autoimmune response). Bacteria, genes, and your environment may also play a role. What increases the risk? The following factors may make you more likely to develop this condition: ? Having a family member who has Crohn's disease, another IBD, or an autoimmune condition. ? Using products that contain nicotine or tobacco, such as cigarettes and e-cigarettes. ? Being in your 20s. ? Having Eastern ancestry. What are the signs or symptoms? The main symptoms of this condition involve your GI tract. These include: ? Diarrhea. ? Pain or cramping in the abdomen commonly felt in the lower right side of the abdomen. ? Frequent watery or bloody stools. ? Constipation. This may mean having: ? Fewer bowel movements in a week than normal. ? Difficulty having a bowel movement. ? Stools that are dry, hard, or larger than normal. ? Rectal bleeding or pain. ? An urgent need to have a bowel movement. ? The feeling that you are not finished having a bowel movement. Other symptoms may include: ? Unexplained weight loss. ? Tiredness (fatigue). ? Fever. ? Nausea or appetite loss. ? Joint pain. ? Vision changes. ? Red bumps or sores on the skin. ? Sores inside the mouth. How is this diagnosed? This condition may be diagnosed based on: ? Your symptoms and medical history. ? A physical exam. ? Tests, which may include: ? Blood tests. ? Stool sample tests. ? Imaging tests, such as X-rays and CT scans. ? Tests to examine the inside of your intestines using a long, flexible tube that has a light and a camera on the end (colonoscopy). ? A procedure to remove tissue samples from inside your bowel for testing (biopsy). You may need to w (more content not included)... Normal [facility] ED Patient Summaryon 023 ED Patient Summary [address] [address] Patient Discharge Instructions Person Information Name: ROLA AGUILAR Age: 27 Years Arrival Date: 04/26/2023 22:10:17 Discharge Diagnosis: 1:Abdominal pain in female; 2:; 3:Nausea & vomiting Primary Care Physician: NONE, XXXX Provider Information Primary Provider: Alfred Graham DO Advanced Foxing Cutting Machine Operator:Kelly The exam and treatment you received in the Emergency Department were for an urgent problem and are not intended as complete care. It is important that you follow up with a doctor, nurse practitioner, or physician?s assistant professor surgical technology for ongoing care. If your symptoms become worse or you do not improve as expected and you are unable to reach your usual health care provider, you should return to the Emergency Department. We are available 24 hours a day. ROLA AGUILAR has been given the following list of patient education materials, prescriptions and follow-up instructions: Follow-up Instructions: With: Address: When: Follow up with Dr Ozuna at [facility] In 3 days 04/30/2023 In the event that this physician does not participate in your insurance network, please consult with your insurance company to find a nearby participating provider. Patient Education Materials: Second Trimester of , Vrcp-xd-Xjnc; Crohn's Disease; Abdominal Pain, Adult, Hvrs-jr-Qkhq A MESSAGE TO ALL PATIENTS REGARDING OPIOIDS PRESCRIPTION OPIOIDS: WHAT YOU NEED TO KNOW Prescription opioids can be used to help relieve nplbyjvu-uh-feczjh pain and are often prescribed following a surgery or injury, or for certain health conditions. These medications can be an important part of the treatment but also come with serious risks. It is important to work with your healthcare provider to make sure you are getting the safest, most effective care. WHAT ARE THE RISKS AND SIDE EFFECTS OF OPIOID USE? Prescription opioids carry serious risks of addiction and overdose, especially with prolonged use. An opioid overdose, often marked by slowed breathing, can cause sudden . The use of prescription opioids can have a number of side effects as well, even when taken as directed: ? Tolerance?meaning you might need to take more of the medication for the same pain relief ? Physical dependence?meaning you have symptoms of withdrawal when a medication is stopped ? Increased sensitivity to pain ? Constipation ? Nausea, vomiting, and dry mouth ? Sleepiness and dizziness ? Confusion ? Depression ? Low levels of testosterone that can result in lower sex drive, energy, and strength ? Itching and sweating RISKS ARE GREATER WITH: ? History of drug misuse, substance use disorder, or overdose ? Mental health conditions (such as depression or anxiety) ? Sleep apnea ? Older age (65 years and older) ? Avoid alcohol while taking prescription opioids. Also, unless specifically advised by your health care provider, medications to avoid include: ? Benzodiazepines (such as Xanax or Valium) ? Muscle relaxants (such as Soma or Flexeril) ? Hypnotics (such as Ambien or Lunesta) ? Other prescription opioids KNOW YOUR OPTIONS Talk to your health care provider about ways to manage your pain that don?t involve prescription opioids. Some of these options may actually work better and have fewer risks and side effects. Options may include: ? Pain relievers such as acetaminophen, ibuprofen, and naproxen ? Some medication that are also used for depression or seizures ? Physical therapy and exercise ? Cognitive behavioral therapy, a psychological, goal-directed approach, in which patients learn how to modify physical, behavioral, and emotional triggers of pain and stress. IF YOU ARE PRESCRIBED OPIOIDS FOR PAIN: ? Never take opioids in greater amounts or more often than prescribed. ? Follow up with your primary health care provider. o Work together to create a plan on how to manage your pain. o Talk about ways to help manage your pain that don?t involve prescription opioids. o Talk about any and all concerns and side effects. ? Help prevent misuse and abuse o Never sell or share prescription opioids. o Never use another person?s prescription opioids. ? Store prescription opioids in a secure place and out of reach of others (this may include visitors, children, friends, and family). ? Safely dispose of unused prescription opioids: Find your community drug take-back program or your pharmacy mail-back program, or flush them down the toilet, following guidance from the Food and Drug Administration (www.fda.gov/Drugs/Res ourcesForYou). ? Visit www.cdc.gov/drugoverdo se to learn about the risks of opioids abuse and overdose. ? If you believe you may be struggling with addiction, tell your health resident care technician and ask for guidance or call SA (more content not included)... Normal [facility] UA With Cult Reflexon 2022 Bacteria LM Ql (Urine sed) TRACE Normal Trace [facility] Comment on above: Performed By: #### 2 [id number], [id number], 3064585, 1987556, 1102209, [id number] #### [facility] [address] [place] [address] Bilirubin Ql (U) Negative Normal Negative [facility] Comment on above: Performed By: #### 2 057278, 1804384, 2536631, 4626449, 1121486, [id number] #### [facility] [address] [place] [address] Clarity (U) CLEAR Normal Clear [facility] Comment on above: Performed By: #### 2 928071, 3218161, 7248610, 5074681, 7439164, [id number] #### [facility] [address] [place] [address] Color (U) YELLOW Normal Yellow [facility] Comment on above: Performed By: #### 2 643247, 9414742, 5979001, 2042610, 9508403, [id number] #### [facility] [address] [place] [address] Epithelial cells.squamous LM.HPF (Urine sed) [#/Area] 5-8 Normal 0-2 [facility] Comment on above: Performed By: #### 2 486905, 8640124, 5525842, 3216461, 4468432, [id number] #### [facility] [address] [place] [address] Glucose Test strip (U) [Mass/Vol] Negative Normal Negative [facility] Comment on above: Performed By: #### 2 713975, 8577866, 5376655, 7023930, 0219756, [id number] #### [facility] [address] [place] [address] Hemoglobin Ql (U) Negative Normal Negative [facility] Comment on above: Performed By: #### 2 492902, 3041582, 5323859, 3964311, 3704234, [id number] #### [facility] [address] [place] [address] Ketones (U) [Mass/Vol] Negative Normal Negative [facility] Comment on above: Performed By: #### 2 033323, 4767083, 0316176, 2920752, 3841999, 23750973 #### [facility] [address] [place] [address] [place]dell.plasma/Lithi um.RBC (Bld) [Mass ratio] 0-3 Normal 0-3 [facility] Comment on above: Performed By: #### 2 746916, 4785150, 7645145, 3063893, 4266268, 44569857 #### [facility] [address] [place] [address] Mucus Ql (Urine sed) TRACE Normal Fish [facility] Comment on above: Performed By: #### 2 489785, 9694812, 4325065, 4665473, 7261897, [id number] #### [facility] [address] [place] [address] Nitrite Ql (U) Negative Normal Negative [facility] Comment on above: Performed By: #### 2 342680, 9794715, 8359884, 3169893, 9835312, 56375287 #### [facility] [address] [place] [address] pH (U) 5.5 [pH] Invalid Interpretation Code 5.0-9.0 [facility] Comment on above: Performed By: #### 2 293337, 0533755, 5969204, 7082906, 2765708, [id number] #### [facility] [address] [place] [address] Protein (U) [Mass/Vol] Negative Normal Negative [facility] Comment on above: Performed By: #### 2 547873, 9656383, 8462593, 3482247, 3531906, [id number] #### [facility] [address] [place] [address] Specific gravity (U) [Rel density] <=1.005 Invalid Interpretation Code 1.005-1.030 [facility] Comment on above: Performed By: #### 2 227030, 5148457, 5214604, 3624153, 7368567, 57778626 #### [facility] [address] [place] [address] Type of Urine collection method Clean Catch Normal [facility] Comment on above: Performed By: #### 2 927430, 4905696, 9485554, 7983481, 0420821, [id number] #### [facility] [address] [place], [place] [address] Urobilinogen Qn (U) 0.2 {Keyla'U}/dL Normal 0.0-1.0 [facility] Comment on above: Performed By: #### 2 865600, 6460512, 0472076, 9028631, 6743891, 44760473 #### [facility] [address] [place] [address] WBC Auto Ql (U) TRACE Abnormal Negative [facility] Comment on above: Performed By: #### 2 040333, 1501351, 1238008, 7977465, 2641443, [id number] #### [facility] [address] [place], [place] [address] WBC LM.HPF (Urine sed) [#/Area] 0-5 Normal 0-5 [facility] Comment on above: Performed By: #### 2 865118, 4463372, 9962514, 7918356, 0523279, 88255396 #### [facility] [address] [place], [place] [address] URINALYSISOrdered By: Abelino Thapa on 04-27-2023 Bacteria LM Ql (Urine sed) Trace /HPF Normal Trace/HPF [facility] UA Auto SS Bilirubin Ql (U) Negative (04/27/23 1:41 AM) Normal Negative [facility] UA Auto SS Clarity (U) Clear (04/27/23 1:41 AM) Normal Clear [facility] UA Auto SS Color (U) Yellow (04/27/23 1:41 AM) Normal Yellow [facility] UA Auto SS Epithelial cells.squamous LM.HPF (Urine sed) [#/Area] 5-8 /HPF Normal 0-2/HPF [facility] UA Auto SS Glucose Test strip (U) [Mass/Vol] Negative (04/27/23 1:41 AM) Normal Negative [facility] UA Auto SS Hemoglobin Ql (U) Negative (04/27/23 1:41 AM) Normal Negative [facility] UA Auto SS Ketones (U) [Mass/Vol] Negative (04/27/23 1:41 AM) Normal Negative [facility] UA Auto SS [place].plasma/Lithi um.RBC (Bld) [Mass ratio] 0-3 /HPF Normal 0-3/HPF [facility] UA Auto SS Mucus Ql (Urine sed) Trace (04/27/23 1:41 AM) Normal [facility] UA Auto SS Nitrite Ql (U) Negative (04/27/23 1:41 AM) Normal Negative [facility] UA Auto SS pH (U) 5.5 *NA* (04/27/23 1:41 AM) Invalid Interpretation Code 5.0 - 9.0 [facility] UA Auto SS Protein (U) [Mass/Vol] Negative (04/27/23 1:41 AM) Normal Negative [facility] UA Auto SS Specific gravity (U) [Rel density] <=1.005 *NA* (04/27/23 1:41 AM) Invalid Interpretation Code 1.005 - 1.030 [facility] UA Auto SS UA Spec Desc Clean Catch (04/27/23 1:41 AM) Normal [facility] UA Auto SS Urobilinogen Qn (U) 0.7019904 {Keyla'U}/dL Normal 0.0 - 1.0 EU/dL [facility] UA Auto SS WBC Auto Ql (U) Trace *ABN* (04/27/23 1:41 AM) Invalid Interpretation Code Negative [facility] UA Auto SS WBC LM.HPF (Urine sed) [#/Area] 0-5 /HPF Normal 0-5/HPF [facility] UA Auto SS Auto Diffon 04-26-2023 Basophils/100 WBC (Bld) 0.2 % Normal 0.0-2.0 [facility] Comment on above: Order Comment: Order Added by Discern Expert. Performed By: #### 2 169903, 9309264, 2464720, 3526465, 6013914, [id number] #### [facility] [address] [place] [address] Basophils/Leukocytes Auto (Bld) [Pure # fraction] 0.0 E9/L Normal 0.0-0.2 [facility] Comment on above: Order Comment: Order Added by Discern Expert. Performed By: #### 2 303325, 6401890, 9666475, 9099312, 2269622, 32180600 #### [facility] [address] [place] [address] Eosinophils/100 WBC (Bld) 0.9 % Normal 0.0-8.0 [facility] Comment on above: Order Comment: Order Added by Discern Expert. Performed By: #### 2 987798, 3246150, 0700048, 7994374, 6014539, 50462042 #### [facility] [address] [place] [address] Eosinophils/Leukocyt es Auto (Bld) [Pure # fraction] 0.1 E9/L Normal 0.0-0.5 [facility] Comment on above: Order Comment: Order Added by Discern Expert. Performed By: #### 2 463805, 3667763, 2624777, 4018967, 1154065, 41750681 #### [facility] [address] [place] [address] 86792 Lymphocytes/100 WBC (Bld) 19.3 % Normal 14.0-50.0 [facility] Comment on above: Order Comment: Order Added by Discern Expert. Performed By: #### 2 179376, 6128822, 8326417, 5541166, 6747358, 52868240 #### [facility] [address] [place] [address]18 Lymphocytes/Leukocyt es Auto (Bld) [Pure # fraction] 1.3 E9/L Normal 1.0-4.0 [facility] Comment on above: Order Comment: Order Added by Discern Expert. Performed By: #### 2 244495, 1513275, 9125579, 5066259, 6810690, 52329567 #### [facility] [address] [place] [address] 52032 Monocytes/100 WBC (Bld) 5.9 % Normal 4.0-14.0 [facility] Comment on above: Order Comment: Order Added by Discern Expert. Performed By: #### 2 529496, 8133762, 2499948, 7519771, 6513777, 91536863 #### [facility] [address] [place] [address] Monocytes/Leukocytes Auto (Bld) [Pure # fraction] 0.4 E9/L Normal 0.2-1.0 [facility] Comment on above: Order Comment: Order Added by Discern Expert. Performed By: #### 2 562251, 4535707, 0497445, 3024690, 4512339, 67183903 #### [facility] [address] [place] [address] Neutrophils/100 WBC (Bld) 73.7 % Normal 36.0-75.0 [facility] Comment on above: Order Comment: Order Added by Discern Expert. Performed By: #### 2 715196, 3035563, 3783566, 3970046, 3043875, 09200248 #### [facility] [address] [place] [address] Neutrophils/Leukocyt es Auto (Bld) [Pure # fraction] 5.1 E9/L Normal 2.0-7.5 [facility] Comment on above: Order Comment: Order Added by Discern Expert. Performed By: #### 2 828210, 3705102, 9781352, 1630258, 5266073, 04361555 #### [facility] [address] [place] [address] BMPon 04-26-2023 Creatinine [Mass/Vol] 0.8 mg/dL Normal 0.5-1.3 [facility] Comment on above: Performed By: #### 2 175226, 6439449, 9458275, 2224141, 1822444, 96325559 #### [facility] [address] [place] [address] Urea nitrogen [Mass/Vol] 10 mg/dL Normal 5-21 [facility] Comment on above: Performed By: #### 2 715837, 2171445, 9474476, 9502185, 6611921, 07592470 #### [facility] [address] [place] [address] Urea nitrogen/Creatinine [Mass ratio] 12 No Units Normal 10-20 [facility] Comment on above: Performed By: #### 2 993544, 2323313, 1783608, 6772378, 2728326, 83579217 #### [facility] [address] [place] [address] Anion gap [Moles/Vol] 15 mmol/L Normal 6-16 [facility] Comment on above: Performed By: #### 2 061419, 6275843, 6703813, 0950342, 6896131, 88094266 #### [facility] [address] [place] [address] Calcium [Mass/Vol] 9.5 mg/dL Normal 8.9-11.1 [facility] Comment on above: Performed By: #### 2 562395, 7777614, 6499064, 3131341, 0141429, 67028868 #### [facility] [address] [place] [address] Chloride [Moles/Vol] 103 mmol/L Normal 101-111 [facility] Comment on above: Performed By: #### 2 268487, 7618764, 5038851, 4509206, 9175437, 64788336 #### [facility] [address] [place] [address] CO2 [Moles/Vol] 22 mmol/L Normal 21-31 [facility] Comment on above: Performed By: #### 2 056520, 7757517, 6447972, 4501085, 9147967, 11384664 #### [facility] [address] [place] [address] Glucose [Mass/Vol] 91 mg/dL Normal 55-199 [facility] Comment on above: Result Comment: If t his glucose result represents a fasting glucose, interpretation should refer to the following reference range: 55-99 mg/dL Performed By: #### 2 324126, 0795281, 4124146, 3798015, 3636201, 12614353 #### [facility] [address] [place] [address] Potassium [Moles/Vol] 3.6 mmol/L Normal 3.5-5.3 [facility] Comment on above: Performed By: #### 2 341659, 3226180, 9828422, 5198633, 7821019, 13855404 #### [facility] [address] [place] [address] Sodium [Moles/Vol] 136 mmol/L Normal 135-145 [facility] Comment on above: Performed By: #### 2 532623, 8027987, 7527704, 5523984, 5354202, 81080019 #### [facility] [address] [place] [address]50 CBC w/ Auto Diffon 3 Erythrocyte distribution width (RBC) [Ratio] 15.3 % High 10.9-14.2 [facility] Comment on above: Performed By: #### 2 809271, 9242240, 8368832, 4456269, 3005617, 51282042 #### [facility] [address] [place] [address] Hematocrit (Bld) [Volume fraction] 35.4 % Normal 34.0-46.0 [facility] Comment on above: Performed By: #### 2 073214, 4926114, 5148610, 7847441, 0269802, 17509298 #### [facility] [address] [place] [address] Hemoglobin (Bld) [Mass/Vol] 11.6 g/dL Low 12.0-16.0 [facility] Comment on above: Performed By: #### 2 977129, 7692612, 6297411, 4462123, 5429516, 38129139 #### [facility] [address] [place] [address] MCH (RBC) [Entitic mass] 25.6 pg Low 27.0-34.0 [facility] Comment on above: Performed By: #### 2 515455, 6125654, 2075456, 1114662, 9232660, 96196699 #### [facility] [address] [place] [address] MCHC (RBC) [Mass/Vol] 32.8 g/dL Normal 31.4-36.0 [facility] Comment on above: Performed By: #### 2 673186, 5218022, 8546706, 8419678, 4898392, 65833044 #### [facility] [address] [place] [address] MCV (RBC) [Entitic vol] 77.8 fL Low 80.0-100.0 [facility] Comment on above: Performed By: #### 2 337303, 2814397, 8851497, 5831446, 4851943, 58753920 #### [facility] [address] [place] [address] 487[address] Platelet mean volume (Bld) [Entitic vol] 7.6 fL Normal 6.4-10.8 [facility] Comment on above: Performed By: #### 2 652234, 0349088, 7847897, 0417280, 5816964, 68628715 #### [facility] [address] [place] [address] Platelets (Bld) [#/Vol] 272.0 E9/L Normal 150.0-500.0 [facility] Comment on above: Performed By: #### 2 308999, 2136355, 5137252, 6372200, 7222983, 61703647 #### [facility] [address] [place] [address] 05332 RBC (Bld) [#/Vol] 4.6 E12/L Normal 4.3-5.9 [facility] Comment on above: Performed By: #### 2 541845, 5447217, 8136341, 2524836, 9109406, 53179876 #### [facility] [address] [place] [address] WBC corrected for nucl RBC Auto (Bld) [#/Vol] 7.0 E9/L Normal 4.0-11.0 [facility] Comment on above: Performed By: #### 2 887410, 9971803, 9110211, 9408339, 8865321, 72612713 #### [facility] [address] [place] [address] CHEMISTRYOrdered By: SYSTEM SYSTEM on 04-26-2023 Albumin [Mass/Vol] 4.0 g/dL Normal 3.3 - 5.0 gm/dL [facility] Albumin/Globulin [Mass ratio] 0.9 {ratio} Low 1.1 - 2.2 [facility] ALP [Catalytic activity/Vol] 63 [iU]/d Normal 21 - 98 Int._Unit/L [facility] ALT No additional P-5'-P [Catalytic activity/Vol] 16 [iU]/d Normal 6 - 46 Int._Unit/L [facility] Anion gap [Moles/Vol] 15 mmol/L Normal 6 - 16 mEq/L [facility] AST [Catalytic activity/Vol] 16 [iU]/d Normal 5 - 43 Int._Unit/L [facility] Bilirubin [Mass/Vol] 0.6 mg/dL Normal 0.0 - 1 .1 mg/dL [facility] Bilirubin.direct [Mass/Vol] mg/dL Normal 0.1 - 0.4 mg/dL [facility] Bilirubin.indirect [Mass or moles/Vol] Unable to Calculate mg/dL Invalid Interpretation Code 0.1 - 0.9 mg/dL [facility] Calcium [Mass/Vol] 9.5 mg/dL Normal 8.9 - 11. 1 mg/dL [facility] Chloride [Moles/Vol] 103 mmol/L Normal 101 - 1 11 mmol/L [facility] CO2 [Moles/Vol] 22 mmol/L Normal 21 - 31 mmol/L [facility] Creatinine [Mass/Vol] 0.8 mg/dL Normal 0.5 - 1.3 mg/dL [facility] GFR/1.73 sq M.predicted among non-blacks MDRD (S/P/Bld) [Vol rate/Area] 104 mL/min/1.73 m2 Normal >=59mL/min/1.7 3 m2 [facility] Chem S Globulin (S) [Mass/Vol] 4.6 g/dL High 1.4 - 4.0 gm/dL [facility] Glucose [Mass/Vol] 91 mg/dL Normal 55 - 199 mg/dL [facility] Remisol Lipase [Catalytic activity/Vol] 47 U/L Normal 13 - 58 unit/L [facility] Potassium [Moles/Vol] 3.6 mmol/L Normal 3.5 - 5.3 mmol/L [facility] Protein [Mass/Vol] 8.6 g/dL High 6.0 - 7.8 gm/dL [facility] Sodium [Moles/Vol] 136 mmol/L Normal 135 - 145 mmol/L [facility] Urea nitrogen [Mass/Vol] 10 mg/dL Normal 5 - 21 mg/dL [facility] Urea nitrogen/Creatinine [Mass ratio] 12 mg/mg Normal 10 - 20 [facility] Consent for Treatmenton Consent for Treatment [id number]#1.0 0CD:127 Normal [facility] ED Note-Physicianon 04-26-20 ED Note-Physician [id number]#1.0 0CD:127 Normal [facility] HEMATOLOGYOrdered By: SYSTEM SYSTEM on 04-26-2023 Basophils/100 WBC (Bld) 0.2 % Normal 0.0 - 2.0 % [facility] Basophils/Leukocytes Auto (Bld) [Pure # fraction] 0.0 E9/L Normal 0.0 - 0.2 E9/L [facility] Eosinophils/100 WBC (Bld) 0.9 % Normal 0.0 - 8.0 % [facility] Eosinophils/Leukocyt es Auto (Bld) [Pure # fraction] 0.1 E9/L Normal 0.0 - 0.5 E9/L [facility] Lymphocytes/100 WBC (Bld) 19.3 % Normal 14.0 - 50.0 % [facility] Lymphocytes/Leukocyt es Auto (Bld) [Pure # fraction] 1.3 E9/L Normal 1.0 - 4.0 E9/L [facility] Monocytes/100 WBC (Bld) 5.9 % Normal 4.0 - 14.0 % [facility] Monocytes/Leukocytes Auto (Bld) [Pure # fraction] 0.4 E9/L Normal 0.2 - 1.0 E9/L [facility] Neutrophils/100 WBC (Bld) 73.7 % Normal 36.0 - 75.0 % [facility] Neutrophils/Leukocyt es Auto (Bld) [Pure # fraction] 5.1 E9/L Normal 2.0 - 7.5 E9/L [facility] HEMATOLOGYOrdered By: Abelino Thapa on 04-26-2023 Erythrocyte distribution width (RBC) [Ratio] 15.3 % High 10.9 - 14.2 % [facility] Hematocrit (Bld) [Volume fraction] 35.4 % Normal 34.0 - 46.0 % [facility] Hemoglobin (Bld) [Mass/Vol] 11.6 g/dL Low 12.0 - 16.0 gm/dL [facility] MCH (RBC) [Entitic mass] 25.6 pg Low 27.0 - 34.0 pg [facility] MCHC (RBC) [Mass/Vol] 32.8 g/dL Normal 31.4 - 36.0 gm/dL [facility] MCV (RBC) [Entitic vol] 77.8 fL Low 80.0 - 100.0 fL [facility] Platelet mean volume (Bld) [Entitic vol] 7.6 fL Normal 6.4 - 10.8 fL [facility] Platelets (Bld) [#/Vol] 272.0 E9/L Normal 150.0 - 500.0 E9/L [facility] RBC (Bld) [#/Vol] 4.6 E12/L Normal 4.3 - 5.9 E12/L [facility] WBC corrected for nucl RBC Auto (Bld) [#/Vol] 7.0 E9/L Normal 4.0 - 11.0 E9/L [facility] Hep Func Panelon 04-26-2023 Bilirubin.indirect [Mass or moles/Vol] UTC Abnormal 0.1-0.9 [facility] Comment on above: Result Comment: Resu lt verified by Discern Rule. Performed result UT (Unable to Calculate) was sent as an Alpha code due the inability to calculate a valid numeric value. Performed By: #### 2 399318, 3671781, 2137764, 6466651, 0569020, 74516166 ####[address] [place] [address] Albumin [Mass/Vol] 4.0 g/dL Normal 3.3-5.0 [facility] Comment on above: Performed By: #### 2 798676, 2662581, 8232586, 0452806, 7138329, 48474969 ####[address] [place] [address] Albumin/Globulin (S) [Mass conc ratio] 0.9 Low 1.1-2.2 [facility] Comment on above: Performed By: #### 2 800013, 1608069, 3909625, 6811932, 8524834, 14984352 ####[address] [place] [address] ALP [Catalytic activity/Vol] 63 Int._Unit/L Normal 21-98 [facility] Comment on above: Performed By: #### 2 167640, 0034538, 6781748, 2670976, 1421108, 84528824 ####[address] [place] [address] ALT No additional P-5'-P [Catalytic activity/Vol] 16 Int._Unit/L Normal 6-46 [facility] Comment on above: Performed By: #### 2 760153, 5177685, 3794615, 6327618, 4394635, 13571309 ####[address] [place] [address] AST [Catalytic activity/Vol] 16 Int._Unit/L Normal 5-43 [facility] Comment on above: Performed By: #### 2 916903, 4171084, 3239221, 0596596, 2570605, 28747863 ####[facility] [address] [place] [address] Bilirubin [Mass/Vol] 0.6 mg/dL Normal 0.0-1.1 [facility] Comment on above: Performed By: #### 2 499646, 2075816, 3694628, 6348762, 3661839, 22755254 ####[facility] [address] [place] [address] Globulin (S) [Mass/Vol] 4.6 g/dL High 1.4-4.0 [facility] Comment on above: Performed By: #### 2 926444, 2789268, 9014825, 5551090, 7045473, 50162685 ####[address] [place] [address] Protein [Mass/Vol] 8.6 g/dL High 6.0-7.8 [facility] Comment on above: Performed By: #### 2 942047, 3234051, 0118364, 9258604, 9999323, 44248215 ####[facility] [address] [place] [address] Bilirubin.direct [Mass/Vol] mg/dL Normal 0.1-0.4 [facility] Comment on above: Performed By: #### 2 641049, 1828424, 2666384, 7444979, 4952919, 41912826 ####[facility] [address] [place] [address] Lipase Levelon 04-26-2023 Lipase [Catalytic activity/Vol] 47 U/L Normal 13-58 [facility] Comment on above: Performed By: #### 2 345252, 2061019, 2786043, 0813736, 8633173, 75292208 #### [facility] [address] [place] [address] eGFRon 04-26-2023 GFR/1.73 sq M.predicted among non-blacks MDRD (S/P/Bld) [Vol rate/Area] 104 mL/min/1.73 m2 Normal >=59 [facility] Comment on above: Order Comment: Order added by Discern Expert. Result Comment: Manager Client Service sammie kidney disease could be indicated at eGFR's of less than 60 mL/min/1.73m2. Kidney failure is indicated at less than 15 mL/min/1.73m2. Performed By: #### 2 854929, 1916395, 0724029, 0158386, 5004778, 94925573 #### [facility] [address] [place] [address] Auto Diffon 04-15-2023 Basophils/100 WBC (Bld) 0.3 % Normal 0.0-2.0 [facility] Comment on above: Order Comment: Order Added by Discern Expert. Performed By: #### 2 634746, 3387555, 8067441, 6067451, 0302788, 89588832 #### [facility] [address] [place] [address] Basophils/Leukocytes Auto (Bld) [Pure # fraction] 0.0 E9/L Normal 0.0-0.2 [facility] Comment on above: Order Comment: Order Added by Discern Expert. Performed By: #### 2 038875, 4780122, 2950215, 8055856, 0429954, 02912132 #### [facility] [address] [place] [address] Eosinophils/100 WBC (Bld) 1.9 % Normal 0.0-8.0 [facility] Comment on above: Order Comment: Order Added by Discern Expert. Performed By: #### 2 135974, 7333195, 3176258, 3227947, 0199094, 65271689 #### [facility] [address] [place] [address] Eosinophils/Leukocyt es Auto (Bld) [Pure # fraction] 0.1 E9/L Normal 0.0-0.5 [facility] Comment on above: Order Comment: Order Added by Discern Expert. Performed By: #### 2 180535, 3389182, 7597156, 8402975, 0632738, 18351623 #### [facility] [address] [place] [address] 6[address] Lymphocytes/100 WBC (Bld) 20.5 % Normal 14.0-50.0 [facility] Comment on above: Order Comment: Order Added by Discern Expert. Performed By: #### 2 923531, 0046287, 5372396, 6118951, 1461370, 83555658 #### [facility] [address] [place] [address]30[address] Lymphocytes/Leukocyt es Auto (Bld) [Pure # fraction] 1.4 E9/L Normal 1.0-4.0 [facility] Comment on above: Order Comment: Order Added by Discern Expert. Performed By: #### 2 752442, 2092611, 9185282, 1093897, 1038043, 59326784 #### [facility] [address] [place] [address] 00343 Monocytes/100 WBC (Bld) 7.6 % Normal 4.0-14.0 [facility] Comment on above: Order Comment: Order Added by Discern Expert. Performed By: #### 2 585039, 3687888, 7771593, 0625666, 5770181, 93460736 #### [facility] [address] [place] [address] 36[address] Monocytes/Leukocytes Auto (Bld) [Pure # fraction] 0.5 E9/L Normal 0.2-1.0 [facility] Comment on above: Order Comment: Order Added by Discern Expert. Performed By: #### 2 848857, 8605138, 7160122, 0141458, 1829444, 32117319 #### [facility] [address] [place] [address] 93497 Neutrophils/100 WBC (Bld) 69.7 % Normal 36.0-75.0 [facility] Comment on above: Order Comment: Order Added by Discern Expert. Performed By: #### 2 993238, 5052095, 0487541, 9128297, 9348792, 07869283 #### [facility] [address] [place] [address] Neutrophils/Leukocyt es Auto (Bld) [Pure # fraction] 4.6 E9/L Normal 2.0-7.5 [facility] Comment on above: Order Comment: Order Added by Discern Expert. Performed By: #### 2 367853, 1739694, 1003881, 4551359, 2121606, 53617359 #### [facility] [address] [place] [address] BMPon 04-15-2023 Creatinine [Mass/Vol] 0.7 mg/dL Normal 0.5-1.3 [facility] Comment on above: Performed By: #### 2 819969, 7284976, 5988523, 7668674, 3660089, 17924058 #### [facility] [address] [place] [address] Urea nitrogen [Mass/Vol] 8 mg/dL Normal 5-21 [facility] Comment on above: Performed By: #### 2 007921, 4047788, 1747171, 3990905, 6072379, 24790849 #### [facility] [address] [place] [address] Urea nitrogen/Creatinine [Mass ratio] 11 No Units Normal 10-20 [facility] Comment on above: Performed By: #### 2 842952, 0143642, 6737858, 3962462, 0394624, 12501263 #### [facility] [address] [place] [address] Anion gap [Moles/Vol] 13 mmol/L Normal 6-16 [facility] Comment on above: Performed By: #### 2 310500, 4468490, 4705403, 7171725, 2517895, 86290251 #### [facility] [address] [place] [address] Calcium [Mass/Vol] 9.0 mg/dL Normal 8.9-11.1 [facility] Comment on above: Performed By: #### 2 865187, 7303438, 2616329, 2430105, 8231457, 89797551 #### [facility] [address] [place] [address] Chloride [Moles/Vol] 104 mmol/L Normal 101-111 [facility] Comment on above: Performed By: #### 2 075311, 2682530, 7515069, 4535820, 3047630, 36930298 #### [facility] [address] [place] [address] CO2 [Moles/Vol] 21 mmol/L Normal 21-31 [facility] Comment on above: Performed By: #### 2 606599, 7600422, 3204710, 1288718, 0939863, 20581489 #### [facility] [address] [place] [address] Glucose [Mass/Vol] 88 mg/dL Normal 55-199 [facility] Comment on above: Result Comment: If t his glucose result represents a fasting glucose, interpretation should refer to the following reference range: 55-99 mg/dL Performed By: #### 2 886159, 8856350, 9608984, 5774257, 3700521, 63617338 #### [facility] [address] [place] [address] Potassium [Moles/Vol] 3.4 mmol/L Low 3.5-5.3 [facility] Comment on above: Performed By: #### 2 372461, 8148486, 0175313, 3623260, 8604731, 13221496 #### [facility] [address] [place] [address] Sodium [Moles/Vol] 135 mmol/L Normal 135-145 [facility] Comment on above: Performed By: #### 2 637832, 8252788, 8423519, 8268736, 3155154, 39116566 #### [facility] [address] [place] [address] CBC w/ Auto Diffon 3 Erythrocyte distribution width (RBC) [Ratio] 15.0 % High 10.9-14.2 [facility] Comment on above: Performed By: #### 2 941341, 8929148, 0261038, 9484008, 6657570, 77069247 #### [facility] [address] [place] [address] Hematocrit (Bld) [Volume fraction] 34.6 % Normal 34.0-46.0 [facility] Comment on above: Performed By: #### 2 624376, 6883958, 5089665, 5267487, 6655951, 94370458 #### [facility] [address] [place] [address] Hemoglobin (Bld) [Mass/Vol] 11.3 g/dL Low 12.0-16.0 [facility] Comment on above: Performed By: #### 2 176149, 6803117, 5794435, 8514717, 8652808, 14792075 #### [facility] [address] [place] [address] MCH (RBC) [Entitic mass] 25.6 pg Low 27.0-34.0 [facility] Comment on above: Performed By: #### 2 200361, 5085892, 4285479, 1964068, 6136055, 47753092 #### [facility] [address] [place] [address] MCHC (RBC) [Mass/Vol] 32.6 g/dL Normal 31.4-36.0 [facility] Comment on above: Performed By: #### 2 151188, 8817231, 8646867, 0105143, 2040431, 44854089 #### [facility] [address] [place] [address]708 MCV (RBC) [Entitic vol] 78.6 fL Low 80.0-100.0 [facility] Comment on above: Performed By: #### 2 499946, 0293295, 2973929, 9801262, 9450506, 03816638 #### [facility] [address] [place] [address] Platelet mean volume (Bld) [Entitic vol] 8.1 fL Normal 6.4-10.8 [facility] Comment on above: Performed By: #### 2 346346, 6605996, 3073983, 8479784, 7896045, 77983782 #### [facility] [address] [place] [address] Platelets (Bld) [#/Vol] 243.0 E9/L Normal 150.0-500.0 [facility] Comment on above: Performed By: #### 2 688403, 7455773, 8373558, 4292886, 8074799, 71788558 #### [facility] [address] [place] [address] RBC (Bld) [#/Vol] 4.4 E12/L Normal 4.3-5.9 [facility] Comment on above: Performed By: #### 2 402865, 2603391, 7137097, 9131008, 6958517, 89414597 #### [facility] [address] [place] [address] WBC corrected for nucl RBC Auto (Bld) [#/Vol] 6.6 E9/L Normal 4.0-11.0 [facility] Comment on above: Performed By: #### 2 269421, 0723575, 6706353, 9060009, 8652833, 24637872 #### [facility] [address] [place] [address] CHEMISTRYOrdered By: SYSTEM SYSTEM on 04-15-2023 Albumin [Mass/Vol] 3.7 g/dL Normal 3.3 - 5.0 gm/dL [facility] Albumin/Globulin [Mass ratio] 0.9 {ratio} Low 1.1 - 2.2 [facility] ALP [Catalytic activity/Vol] 55 [iU]/d Normal 21 - 98 Int._Unit/L [facility] ALT No additional P-5'-P [Catalytic activity/Vol] 17 [iU]/d Normal 6 - 46 Int._Unit/L [facility] Anion gap [Moles/Vol] 13 mmol/L Normal 6 - 16 mEq/L [facility] AST [Catalytic activity/Vol] 17 [iU]/d Normal 5 - 43 Int._Unit/L [facility] Bilirubin [Mass/Vol] 0.5 mg/dL Normal 0.0 - 1 .1 mg/dL [facility] Bilirubin.direct [Mass/Vol] mg/dL Normal 0.1 - 0.4 mg/dL [facility] Bilirubin.indirect [Mass or moles/Vol] Unable to Calculate mg/dL Invalid Interpretation Code 0.1 - 0.9 mg/dL [facility] Calcium [Mass/Vol] 9.0 mg/dL Normal 8.9 - 11. 1 mg/dL [facility] Chloride [Moles/Vol] 104 mmol/L Normal 101 - 1 11 mmol/L [facility] CO2 [Moles/Vol] 21 mmol/L Normal 21 - 31 mmol/L [facility] Creatinine [Mass/Vol] 0.7 mg/dL Normal 0.5 - 1.3 mg/dL [facility] GFR/1.73 sq M.predicted among non-blacks MDRD (S/P/Bld) [Vol rate/Area] 121 mL/min/1.73 m2 Normal >=59mL/min/1.7 3 m2 [facility] Chem S Globulin (S) [Mass/Vol] 4.0 g/dL Normal 1.4 - 4.0 gm/dL [facility] Glucose [Mass/Vol] 88 mg/dL Normal 55 - 199 mg/dL [facility] Lipase [Catalytic activity/Vol] 45 U/L Normal 13 - 58 unit/L [facility] Magnesium [Mass/Vol] 1.8 mg/dL Normal 1.3 - 2 .4 mg/dL [facility] Potassium [Moles/Vol] 3.4 mmol/L Low 3.5 - 5.3 mmol/L [facility] Protein [Mass/Vol] 7.7 g/dL Normal 6.0 - 7.8 gm/dL [facility] Sodium [Moles/Vol] 135 mmol/L Normal 135 - 145 mmol/L [facility] Urea nitrogen [Mass/Vol] 8 mg/dL Normal 5 - 21 mg/dL [facility] Remisol Urea nitrogen/Creatinine [Mass ratio] 11 mg/mg Normal 10 - 20 [facility] Remisol COAGULATIONOrdered By: Acosta Aguirre on 04-15-2023 aPTT Coag (PPP) [Time] 28.9 s Normal 25.1 - 36.5 second(s) [facility] Auto Coag INR Coag (PPP) [Relative time] 1.0 {INR} Invalid Interpretation Code [facility] Auto Coag PT Coag (PPP) [Time] 11.7 s Normal 9.4 - 1 2.5 second(s) [facility] Auto Coag Discharge Instructionson Discharge Instructions [id number]. 00CD:[id number] Normal [facility] ED Clinical Summaryon 2022 ED Clinical Summary [place] [id number] ED Clinical Summary Person Information Name: SHENYENI ROLA D [facility] Age: 27 Years : 1995 Sex: Female Language: Iraqi PCP: Kale RENDON MD Marital Status: Single Phone: [phone] Visit Id: Visit Reason: Abdominal pain - ; 11 WEEKS PREG, CRAMPING Speciality: Acuity: 3 Enc Type: Emergency Med Service: Emergency Arrival: 04/14/2023 23:39:41 Discharge: 04/15/2023 01:12:18 LOS: 000 01:33 Checkin: 04/14/2023 23:39:41 Checkout: 04/15/2023 01:12:18 Dispo Type: Home (Routine DC) EVENTS: Event Name Event Status Request Date/Time Start Date/Time Complete Date/Time Arrive Complete 04/14/2023 23:39:41 04/14/2023 23:39:41 04/14/2023 23:39:41 Document Home Meds Request 04/14/2023 23:39:41 Triage Complete 04/14/2023 23:39:41 04/14/2023 23:46:55 04/14/2023 23:46:55 Registration Complete 04/14/2023 23:44:08 04/14/2023 23:44:08 04/14/2023 23:44:08 Reg Complete Request 04/14/2023 23:44:08 Reg Bed Request Complete 04/14/2023 23:44:08 04/14/2023 23:44:08 04/14/2023 23:44:08 Bed Assign Complete 04/14/2023 23:48:29 04/14/2023 23:48:29 04/14/2023 23:48:29 Dr Exam Complete 04/14/2023 23:48:29 04/14/2023 23:50:45 04/14/2023 23:50:45 RN Exam Complete 04/14/2023 23:48:29 04/15/2023 01:07:32 04/15/2023 01:07:32 Registration Request 04/14/2023 23:50:45 Meds Admin Complete 04/15/2023 00:05:42 04/15/2023 00:21:03 Pending Labs Complete 04/15/2023 00:05:42 04/15/2023 00:57:20 Lab Complete 04/15/2023 00:05:42 04/15/2023 00:57:20 Urine Collect Complete 04/15/2023 00:05:42 04/15/2023 00:40:40 Pending Labs Complete 04/15/2023 00:05:56 04/15/2023 00:43:51 Lab Complete 04/15/2023 00:05:56 04/15/2023 00:43:51 Pending Labs Complete 04/15/2023 00:28:32 04/15/2023 00:28:32 04/15/2023 00:57:19 Lab Complete 04/15/2023 00:28:32 04/15/2023 00:28:32 04/15/2023 00:57:19 Pending Labs Complete 04/15/2023 00:31:14 04/15/2023 00:31:14 04/15/2023 00:31:23 Lab Complete 04/15/2023 00:31:14 04/15/2023 00:31:14 04/15/2023 00:31:23 Discharge Complete 04/15/2023 01:05:34 04/15/2023 01:12:27 04/15/2023 01:12:27 Transfer Complete 04/15/2023 01:12:27 04/15/2023 01:12:27 04/15/2023 01:12:27 ADDRESS: [facility] [address] [place] [phone] PHYS DOC NOTES: MEDICAL INFORMATION: Prescriptions Given: Medications to Continue with No Changes Other Medications acetaminophen-hydrocod one ([place] 325 mg-5 mg oral tablet) 1 Tablets By Mouth every 6 hours as needed for pain. Refills: 0. acetaminophen-hydrocod one ([place] 325 mg-5 mg oral tablet) 1 Tablets By Mouth every 6 hours as needed for pain. Refills: 0. acetaminophen-oxycodon e (Percocet 325 mg-5 mg Tab) 1 Tablets By Mouth every 6 hours as needed as needed for pain. Refills: 0. acetaminophen-oxycodon e (Percocet 5 mg-325 mg oral tablet) 1 Tablets By Mouth every 6 hours. Refills: 0. acetaminophen-oxycodon e (Percocet 5 mg-325 mg oral tablet) 1 Tablets By Mouth every 6 hours. Refills: 0. acetaminophen-oxycodon e (Percocet 5 mg-325 mg oral tablet) 1 Tablets By Mouth every 6 hours. Refills: 0. hydrOXYzine (Vistaril 25 mg Tab) 1-2 tab(s) By Mouth 4 times a day as needed as needed for anxiety. Refills: 0. lurasidone (Latuda 20 mg oral tablet) 1 Tablets By Mouth every day. Refills: 0. ondansetron (Zofran 4 mg Tab) 1 Tablets By Mouth every 8 hours as needed Nausea/Vomiting. Refills: 0. ondansetron (Zofran ODT 4 mg Tab-Dis) 1 Tablets By Mouth every 8 hours. Refills: 0. ondansetron (Zofran ODT 4 mg Tab-Dis) 1 Tablets By Mouth every 8 hours as needed Nausea/Vomiting. Refills: 0. predniSONE (predniSONE 10 mg Tab) 4 tab(s) Oral Daily for 1 week, then 3 tablets oral daily for 1 week, then 2 tablets oral daily for 1 week then 1 tablet oral daily for 1 week. Refills: 0. promethazine (Phenergan 25 mg Supp) 1 Suppositories By rectum every 6 hours as needed Nausea/Vomiting. Refills: 0. promethazine (promethazine 25 mg Tab) 1 Tablets By Mouth every 6 hours as needed as needed for nausea/vomiting. Refills: 0. PATIENT EDUCATION INFORMATION: Instructions: Crohn's Disease; Abdominal Pain, Adult Follow up: With: Address: When: [facility] [place] [id number] Business (1) In 3 days 04/18/2023 Comments: Make sure to follow-up with your GI as instructed. Return to the emergency room if your pain gets worse, vomiting, vaginal bleeding or any new symptoms. DIAGNOSIS: 1:Abdominal pain; 2:Exacerbation of Crohn's disease Normal [facility] ED Note-Physicianon 04-15-20 ED Note-Physician Basic Information Time Seen: Carolyn Mcmahon M.D. 04/14/2023 23:50 Chief Complaint 11wks preg. abd cramping since last night. states pain is worse tonight. denies vaginal bleeding. denies pain with urination. History of Present Illness The patient is a 27-year-old female past medical history of Crohn's disease status post colostomy, 11 weeks , who presented to the emergency room with abdominal pain. The patient states prior to the arrival she start developing pain on her abdomen. The patient states she has been having cramping and points on bilateral lower quadrants of her abdomen. She states she has been having more watery output from her colostomy. She is complaining of back pain as well. She denies any vaginal bleeding. She reports some nausea but no vomiting. The patient denies any burning with urination. She denies any fever, denies any chills. The patient states she is not on any medication for her Crohn's currently due to the . The patient denies any other associated symptoms. Review of Systems Additional ROS info: Except as noted in the above Review of Systems and in the History of Present Illness all other systems have been reviewed and are negative or noncontributory. Physical Exam Vitals & Measurements T: 37.2 ?C(Tympanic) HR: 74(Monitored) RR: 14 BP: 104/70 SpO2: 99% HT: 168 cm WT: 90.8 kg BMI: 32.17 General: alert, no acute distress Skin: warm, dry Head: no trauma, normocephalic Neck: Trachea midline Eye: normal conjunctiva, sclera clear Cardiovascular: regular rate and rhythm Respiratory: Lungs CTA, respirations non labored, breath sounds equal Gastrointestinal: soft, non distended, mild generalized tenderness, no guarding, colostomy present on the right side of the abdomen with liquid brown stool with intestinal prolapse, which is chronic per patient Extremities: no deformity, no trauma Neurological: Alert and oriented, speech normal, no focal neuro deficits Psychiatric: cooperative, affect appropriate for age, Procedure [ ] The patient is and presents with abdominal pain or vaginal bleeding. A trans-abdominal or trans-vaginal ultrasound was performed and the location is documented. [SATISFIES MIPS PERFORMANCE] [x ] The patient is pregant and presents with abdominal pain or vaginal bleeding. A trans-abdominal or trans-vaginal ultrasound was NOT performed because (her abdominal pain is due to exacerbation of her Crohn's disease and patient has documented intrauterine ) [MIPS PERFORMANCE EXCEPTION/EXCLUSION] [ ] The patient is pregant and presents with abdominal pain or vaginal bleeding. A trans-abdominal or trans-vaginal ultrasound was NOT performed, no reason documented. [DOES NOT SATISFY MIPS PERFORMANCE] Medical Decision Making MEDICAL DECISION MAKING Number and Complexity of Problems Differential Diagnosis: [] [facility] Data External documents reviewed: [] My EKG interpretation: [] My CT interpretation: [] My X-ray interpretation: [] My Ultrasound interpretation: [] Decision rules/scores evaluated: [] Discussed with: [] Treatment and Disposition ED Course: The patient presented with abdominal pain. She denies any vaginal bleeding. More likely her symptoms are due to exacerbation of her Crohn's disease. The patient had an ultrasound of her pelvis a month ago and she has intrauterine . The blood work reviewed. The patient was given IV fluid, Zofran and morphine and her pain improved. Will discharge patient home follow-up with her GI. She has Bentyl at home. The patient is instructed to return to the emergency room if her pain gets worse, vomiting, vaginal bleeding or any new symptoms. Shared decision making: [] Code status: [] Assessment/Plan 1. Abdominal pain (R10.9: Unspecified abdominal pain) 2. Exacerbation of Crohn's disease (K50.90: Crohn's disease, unspecified, without complications) Orders: morphine, 4 mg = 2 mL, Injection, IV Push, Once, Stop date 04/15/23 0:05:00 EDT, STAT, Start date 04/15/23 0:05:00 EDT, 04/15/23 0:05:00 EDT ondansetron, 4 mg = 2 mL, Injection, IV Push, Once, Stop date 04/15/23 0:05:00 EDT, STAT, Start date 04/15/23 0:05:00 EDT, 04/15/23 0:05:00 EDT Sodium Chloride 0.9% intravenous solution, 1,000 mL, Soln-IV, IV, Once, Stop date 04/15/23 0:05:00 EDT, STAT, Start date 04/15/23 0:05:00 EDT, Infuse over 61, minute(s) Automated Diff Basic Metabolic Panel CBC w/ Auto Diff eGFR Hepatic Function Panel Lipase Level Magnesium Level PT & PTT UA With Cult Reflex Medications Administered Given morphine 2 mg/mL Inj, 4 mg, IV Push NS 1000 ml Bolus, 1000 mL, IV ondansetron 4 mg/2 mL Inj, 4 mg, IV Push Disposition Plan Patient Discharge Condition Stable, improved Discharge Disposition Discharged home Discharge Prescription List Prescriptions No active prescription medications Follow-up With When Contact Information Kale RENDON (more content not included)... Normal [facility] Comment on above: Result Comment: Elec tronically Signed By: Lisandro Mishra, Carolyn Drake\.br\Date and Time Signed: 04/15/23 01:22 EDT ED Patient Education Noteon 04-15-2023 ED Patient Education Note Gastroenterology Abdominal Pain, Adult Pain in the abdomen (abdominal pain) can be caused by many things. Often, abdominal pain is not serious and it gets better with no treatment or by being treated at home. However, sometimes abdominal pain is serious. Your health care provider will ask questions about your medical history and do a physical exam to try to determine the cause of your abdominal pain. Follow these instructions at home: Medicines ? Take llro-ico-pisnsuw and prescription medicines only as told by your health care provider. ? Do not take a laxative unless told by your health care provider. General instructions ? Watch your condition for any changes. ? Drink enough fluid to keep your urine pale yellow. ? Keep all follow-up visits as told by your health care provider. This is important. Contact a health care provider if: ? Your abdominal pain changes or gets worse. ? You are not hungry or you lose weight without trying. ? You are constipated or have diarrhea for more than 2?3 days. ? You have pain when you urinate or have a bowel movement. ? Your abdominal pain wakes you up at night. ? Your pain gets worse with meals, after eating, or with certain foods. ? You are vomiting and cannot keep anything down. ? You have a fever. ? You have blood in your urine. Get help right away if: ? Your pain does not go away as soon as your health care provider told you to expect. ? You cannot stop vomiting. ? Your pain is only in areas of the abdomen, such as the right side or the left lower portion of the abdomen. Pain on the right side could be caused by appendicitis. ? You have bloody or black stools, or stools that look like tar. ? You have severe pain, cramping, or bloating in your abdomen. ? You have signs of dehydration, such as: ? Dark urine, very little urine, or no urine. ? Cracked lips. ? Dry mouth. ? Sunken eyes. ? Sleepiness. ? Weakness. ? You have trouble breathing or chest pain. Summary ? Often, abdominal pain is not serious and it gets better with no treatment or by being treated at home. However, sometimes abdominal pain is serious. ? Watch your condition for any changes. ? Take ozxb-cmy-godmwhe and prescription medicines only as told by your health care provider. ? Contact a health care provider if your abdominal pain changes or gets worse. ? Get help right away if you have severe pain, cramping, or bloating in your abdomen. This information is not intended to replace advice given to you by your health care provider. Make sure you discuss any questions you have with your health care provider. Document Revised: 10/28/2020 Document Reviewed: 01/18/2020 [employer] Patient Education ? 2022 [employer]. Immunology Crohn's Disease Crohn's disease is a long-lasting (chronic) disease that affects the gastrointestinal (GI) tract. Crohn's disease often causes irritation and inflammation in the small intestine and the beginning of the large intestine, but it can affect any part of the GI tract. Crohn's disease is part of a group of illnesses that are known as inflammatory bowel disease (IBD). Crohn's disease may start slowly and get worse over time. Symptoms may come and go. They may also go away for months or even years at a time (remission). What are the causes? The exact cause of this condition is not known. It may involve a response that causes your body's disease-fighting system (immune system) to attack healthy cells and tissues (autoimmune response). Bacteria, genes, and your environment may also play a role. What increases the risk? The following factors may make you more likely to develop this condition: ? Having a family member who has Crohn's disease, another IBD, or an autoimmune condition. ? Using products that contain nicotine or tobacco, such as cigarettes and e-cigarettes. ? Being in your 20s. ? Having Eastern ancestry. What are the signs or symptoms? The main symptoms of this condition involve your GI tract. These include: ? Diarrhea. ? Pain or cramping in the abdomen commonly felt in the lower right side of the abdomen. ? Frequent watery or bloody stools. ? Constipation. This may mean having: ? Fewer bowel movements in a week than normal. ? Difficulty having a bowel movement. ? Stools that are dry, hard, or larger than normal. ? Rectal bleeding or pain. ? An urgent need to have a bowel movement. ? The feeling that you are not finished having a bowel movement. Other symptoms may include: ? Unexplained weight loss. ? Tiredness (fatigue). ? Fever. ? Nausea or appetite loss. ? Joint pain. ? Vision changes. ? Red bumps or sores on the skin. ? Sores inside the mouth. How is this diagnosed? This condition may be diagnosed based on: ? Your symptoms and medical history. ? A physical exam. ? Tests, which may include: ? Blood tests. ? Stool sample tests. (more content not included)... Normal [facility] ED Patient Summaryon 023 ED Patient Summary [address] [address] Patient Discharge Instructions Person Information Name: ROLA AGUILAR Age: 27 Years Arrival Date: 04/14/2023 23:39:41 Discharge Diagnosis: 1:Abdominal pain; 2:Exacerbation of Crohn's disease Primary Care Physician: Kale RENDON MD Provider Information Primary Provider: Carolyn Mcmahon M.D. Advanced Foxing Cutting Machine Operator:None The exam and treatment you received in the Emergency Department were for an urgent problem and are not intended as complete care. It is important that you follow up with a doctor, nurse practitioner, or physician?s assistant professor surgical technology for ongoing care. If your symptoms become worse or you do not improve as expected and you are unable to reach your usual health care provider, you should return to the Emergency Department. We are available 24 hours a day. ROLA AGUILAR has been given the following list of patient education materials, prescriptions and follow-up instructions: Follow-up Instructions: With: Address: When: Kale RENDON [address] [place], [place] [id number] Business (1) In 3 days 04/18/2023 Comments: Make sure to follow-up with your GI as instructed. Return to the emergency room if your pain gets worse, vomiting, vaginal bleeding or any new symptoms. In the event that this physician does not participate in your insurance network, please consult with your insurance company to find a nearby participating provider. Patient Education Materials: Crohn's Disease; Abdominal Pain, Adult A MESSAGE TO ALL PATIENTS REGARDING OPIOIDS PRESCRIPTION OPIOIDS: WHAT YOU NEED TO KNOW Prescription opioids can be used to help relieve zrljvbmi-ej-upgtob pain and are often prescribed following a surgery or injury, or for certain health conditions. These medications can be an important part of the treatment but also come with serious risks. It is important to work with your healthcare provider to make sure you are getting the safest, most effective care. WHAT ARE THE RISKS AND SIDE EFFECTS OF OPIOID USE? Prescription opioids carry serious risks of addiction and overdose, especially with prolonged use. An opioid overdose, often marked by slowed breathing, can cause sudden . The use of prescription opioids can have a number of side effects as well, even when taken as directed: ? Tolerance?meaning you might need to take more of the medication for the same pain relief ? Physical dependence?meaning you have symptoms of withdrawal when a medication is stopped ? Increased sensitivity to pain ? Constipation ? Nausea, vomiting, and dry mouth ? Sleepiness and dizziness ? Confusion ? Depression ? Low levels of testosterone that can result in lower sex drive, energy, and strength ? Itching and sweating RISKS ARE GREATER WITH: ? History of drug misuse, substance use disorder, or overdose ? Mental health conditions (such as depression or anxiety) ? Sleep apnea ? Older age (65 years and older) ? Avoid alcohol while taking prescription opioids. Also, unless specifically advised by your health care provider, medications to avoid include: ? Benzodiazepines (such as Xanax or Valium) ? Muscle relaxants (such as Soma or Flexeril) ? Hypnotics (such as Ambien or Lunesta) ? Other prescription opioids KNOW YOUR OPTIONS Talk to your health care provider about ways to manage your pain that don?t involve prescription opioids. Some of these options may actually work better and have fewer risks and side effects. Options may include: ? Pain relievers such as acetaminophen, ibuprofen, and naproxen ? Some medication that are also used for depression or seizures ? Physical therapy and exercise ? Cognitive behavioral therapy, a psychological, goal-directed approach, in which patients learn how to modify physical, behavioral, and emotional triggers of pain and stress. IF YOU ARE PRESCRIBED OPIOIDS FOR PAIN: ? Never take opioids in greater amounts or more often than prescribed. ? Follow up with your primary health care provider. o Work together to create a plan on how to manage your pain. o Talk about ways to help manage your pain that don?t involve prescription opioids. o Talk about any and all concerns and side effects. ? Help prevent misuse and abuse o Never sell or share prescription opioids. o Never use another person?s prescription opioids. ? Store prescription opioids in a secure place and out of reach of others (this may include visitors, children, friends, and family). ? Safely dispose of unused prescription opioids: Find your community drug take-back program or your pharmacy mail-back program, or flush them down the toilet, following guidance from the Food and Drug Administration (www.fda.gov/Drugs/Res ourcesForYou). ? Visit www.cdc.gov/drugoverdo se to learn a (more content not included)... Normal [facility] HEMATOLOGYOrdered By: SYSTEM SYSTEM on 04-15-2023 Basophils/100 WBC (Bld) 0.3 % Normal 0.0 - 2.0 % [facility] HemeAutoSS Basophils/Leukocytes Auto (Bld) [Pure # fraction] 0.0 E9/L Normal 0.0 - 0.2 E9/L [facility] HemeAutoSS Eosinophils/100 WBC (Bld) 1.9 % Normal 0.0 - 8.0 % [facility] HemeAutoSS Eosinophils/Leukocyt es Auto (Bld) [Pure # fraction] 0.1 E9/L Normal 0.0 - 0.5 E9/L [facility] HemeAutoSS Lymphocytes/100 WBC (Bld) 20.5 % Normal 14.0 - 50.0 % [facility] HemeAutoSS Lymphocytes/Leukocyt es Auto (Bld) [Pure # fraction] 1.4 E9/L Normal 1.0 - 4.0 E9/L [facility] HemeAutoSS Monocytes/100 WBC (Bld) 7.6 % Normal 4.0 - 14.0 % [facility] HemeAutoSS Monocytes/Leukocytes Auto (Bld) [Pure # fraction] 0.5 E9/L Normal 0.2 - 1.0 E9/L [facility] HemeAutoSS Neutrophils/100 WBC (Bld) 69.7 % Normal 36.0 - 75.0 % [facility] HemeAutoSS Neutrophils/Leukocyt es Auto (Bld) [Pure # fraction] 4.6 E9/L Normal 2.0 - 7.5 E9/L [facility] HemeAutoSS HEMATOLOGYOrdered By: Acosta Aguirre on 04-15-2023 Erythrocyte distribution width (RBC) [Ratio] 15.0 % High 10.9 - 14.2 % [facility] HemeAutoSS Hematocrit (Bld) [Volume fraction] 34.6 % Normal 34.0 - 46.0 % [facility] HemeAutoSS Hemoglobin (Bld) [Mass/Vol] 11.3 g/dL Low 12.0 - 16.0 gm/dL [facility] HemeAutoSS MCH (RBC) [Entitic mass] 25.6 pg Low 27.0 - 34.0 pg [facility] HemeAutoSS MCHC (RBC) [Mass/Vol] 32.6 g/dL Normal 31.4 - 36.0 gm/dL [facility] HemeAutoSS MCV (RBC) [Entitic vol] 78.6 fL Low 80.0 - 100.0 fL [facility] HemeAutoSS Platelet mean volume (Bld) [Entitic vol] 8.1 fL Normal 6.4 - 10.8 fL [facility] HemeAutoSS Platelets (Bld) [#/Vol] 243.0 E9/L Normal 150.0 - 500.0 E9/L [facility] HemeAutoSS RBC (Bld) [#/Vol] 4.4 E12/L Normal 4.3 - 5.9 E12/L [facility] HemeAutoSS WBC corrected for nucl RBC Auto (Bld) [#/Vol] 6.6 E9/L Normal 4.0 - 11.0 E9/L [facility] HemeAutoSS Hep Func Panelon 04-15-2023 Bilirubin.indirect [Mass or moles/Vol] UTC Abnormal 0.1-0.9 [facility] Comment on above: Result Comment: Resu lt verified by Discern Rule. Performed result UTC (Unable to Calculate) was sent as an Alpha code due the inability to calculate a valid numeric value. Performed By: #### 2 [id number], [id number], [id number], [id number], [id number] #### [facility] [address] [place] [address] Albumin [Mass/Vol] 3.7 g/dL Normal 3.3-5.0 [facility] Comment on above: Performed By: #### 2 [id number], [id number], [id number], [id number], [id number] #### [facility] [address] [place] [address] Albumin/Globulin (S) [Mass conc ratio] 0.9 Low 1.1-2.2 [facility] Comment on above: Performed By: #### 2 [id number], [id number], [id number], [id number], [id number], [id number] #### [facility] [address] [place] [address] ALP [Catalytic activity/Vol] 55 Int._Unit/L Normal 21-98 [facility] Comment on above: Performed By: #### 2 [id number], [id number], [id number], [id number], [id number], [id number] #### [facility] [address] [place] [address] ALT No additional P-5'-P [Catalytic activity/Vol] 17 Int._Unit/L Normal 6-46 [facility] Comment on above: Performed By: #### 2 [id number], [id number], [id number], [id number], [id number], [id number] #### [facility] [address] [place] [address] AST [Catalytic activity/Vol] 17 Int._Unit/L Normal 5-43 [facility] Comment on above: Performed By: #### 2 [id number], [id number], [id number], 4105041, [id number], [id number] #### [facility] [address] [place] [address] Bilirubin [Mass/Vol] 0.5 mg/dL Normal 0.0-1.1 [facility] Comment on above: Performed By: #### 2 [id number], [id number], 7537835, 4441239, [id number], [id number] #### [facility] [address] [place] [address] Globulin (S) [Mass/Vol] 4.0 g/dL Normal 1.4-4.0 [facility] Comment on above: Performed By: #### 2 [id number], [id number], 3699352, 5196775, [id number], [id number] #### [facility] [address] [place] [address] Protein [Mass/Vol] 7.7 g/dL Normal 6.0-7.8 [facility] Comment on above: Performed By: #### 2 501084, 8227888, 2661664, 0992821, 5321218, 22113978 #### [facility] [address] [place] [address] Bilirubin.direct [Mass/Vol] mg/dL Normal 0.1-0.4 [facility] Comment on above: Performed By: #### 2 462887, 9190626, 8731160, 4367938, 4494731, 30065041 #### [facility] [address] [place] [address] Lipase Levelon 04-15-2023 Lipase [Catalytic activity/Vol] 45 U/L Normal 13-58 [facility] Comment on above: Performed By: #### 2 211135, 1914037, 2242557, 9206433, 1008985, 70788626 #### [facility] [address] [place] [address] Magnesiumon 04-15-2023 Magnesium [Mass/Vol] 1.8 mg/dL Normal 1.3-2.4 [facility] Comment on above: Performed By: #### 2 405213 ####[facility] [address] [place] [address] PT & PTTon 04-15-2023 aPTT Coag (PPP) [Time] 28.9 second(s) Normal 25.1-36.5 [facility] Comment on above: Result Comment: Para meter 15 days - 4 weeks 1 - 5 months 6 - 11 months 1 - 5 years 6 - 10 years 11 - 17 years PTT Mean: 35.4 (27.6-45.6) Mean: 33.5 (24.8-40.7) Mean: 32.4 (25.1-40.7) Mean: 31.6 (24.0-39.2) Mean: 31.6 (26.9-38.7) Mean: 31.0 (24.6-38.4) Pediatric Reference ranges were obtained from a study by Charli Araya et al. prepared from 1437 samples obtained at 7 different centers using the same coagulation reagent and instrumentation as [facility]. Currently there are no coagulation studies available worldwide for children to 14 days, and no normal ranges. Heparin therapeutic range (represented by Anti-Factor Xa activity of 0.2 - 0.4 U/mL) corresponds to PTT of 56.6 - 109.0 sec. Performed By: #### 2 094277, 4931194, 9818962, 3067472, 6369292, 87621824 #### [facility] [address] [place] [address] INR Coag (PPP) [Relative time] 1.0 {INR} Invalid Interpretation Code [facility] Comment on above: Result Comment: INR results are specifically intended to assess patients stabilized on long-term Anticoagulation therapy suggested INR?s ?Less Intensive Anticoagulation? 2.0 ? 3.0 Conventional Range 3.0 ? 4.5 Performed By: #### 2 334476, 8275496, 5764236, 3008478, 9129547, 60560189 #### [facility] [address] [place] [address] PT Coag (PPP) [Time] 11.7 second(s) Normal 9.4-12.5 [facility] Comment on above: Result Comment: 15 d ays - 4 weeks 1 - 5 months 6 -11 months 1 ? 5 years 6 ? 10 years 11 -17 years Mean: 11.2 (9.5 ? 12.6) Mean: 11.0 (9.7 ? 12.8) Mean: 11.0 (9.8 ? 13.0) Mean: 11.3 (9.9 ? 13.4) Mean: 11.7 (10.0 ? 14.6) Mean: 11.8 (10.0 - 14.1) Pediatric Reference ranges were obtained from a study by Charli Araya et al. prepared from 1437 samples obtained at 7 different centers using the same coagulation reagent and instrumentation as [facility]. Currently there are no coagulation studies available worldwide for children to 14 days, and no normal ranges. Performed By: #### 2 356433, 5540159, 4495466, 4116951, 6664360, 99208253 #### [facility] [address] [place] [address] UA With Cult Reflexon 2022 Bacteria LM Ql (Urine sed) TRACE Normal Trace [facility] Comment on above: Performed By: #### 1 [id number] #### [facility] [address] [place] [address] Bilirubin Ql (U) Negative Normal Negative [facility] Comment on above: Performed By: #### 1 [id number] #### [facility] [address] [place] [address] Clarity (U) CLEAR Normal Clear [facility] Comment on above: Performed By: #### 1 [id number] #### [facility] [address] [place] [address] Color (U) YELLOW Normal Yellow [facility] Comment on above: Performed By: #### 1 3263230 #### [facility] [address] [place] [address] Epithelial cells.squamous LM.HPF (Urine sed) [#/Area] 5-8 Normal 0-2 [facility] Comment on above: Performed By: #### 1 [id number] #### [facility] [address] [place] [address] Glucose Test strip (U) [Mass/Vol] Negative Normal Negative [facility] Comment on above: Performed By: #### 1 [id number] #### [facility] [address] [place] [address] Hemoglobin Ql (U) Negative Normal Negative [facility] Comment on above: Performed By: #### 1 4933084 #### [facility] [address] [place] [address] Ketones (U) [Mass/Vol] TRACE Invalid Interpretation Code Negative [facility] Comment on above: Performed By: #### 1 2975707 #### [facility] [address] [place] [address] Reddell.plasma/Lithi um.RBC (Bld) [Mass ratio] 0-3 Normal 0-3 [facility] Comment on above: Performed By: #### 1 3406470 #### [facility] [address] [place] [address] Mucus Ql (Urine sed) TRACE Normal Fish [facility] Comment on above: Performed By: #### 1 [id number] #### [facility] [address] [place] [address] Nitrite Ql (U) Negative Normal Negative [facility] Comment on above: Performed By: #### 1 5625738 #### [facility] [address] [place] [address] pH (U) 6.0 [pH] Invalid Interpretation Code 5.0-9.0 [facility] Comment on above: Performed By: #### 1 1272702 #### [facility] [address] [place] [address] Protein (U) [Mass/Vol] TRACE Abnormal Negative [facility] Comment on above: Performed By: #### 1 9553233 #### [facility] [address] [place] [address] Specific gravity (U) [Rel density] 1.025 Invalid Interpretation Code 1.005-1.030 [facility] Comment on above: Performed By: #### 1 [id number] #### [facility] [address] [place], [place] [address] Type of Urine collection method Clean Catch Normal [facility] Comment on above: Performed By: #### 1 3903199 #### [facility] [address] [place], [place] [address] Urobilinogen Qn (U) 0.2 {Keyla'U}/dL Normal 0.0-1.0 [facility] Comment on above: Performed By: #### 1 1342281 #### [facility] [address] [place] [address] WBC Auto Ql (U) TRACE Abnormal Negative [facility] Comment on above: Performed By: #### 1 3079076 #### [facility] [address] [place] [address] WBC LM.HPF (Urine sed) [#/Area] 0-5 Normal 0-5 [facility] Comment on above: Performed By: #### 1 [id number] #### [facility] [address] [place] [address] URINALYSISOrdered By: Acosta Aguirre on 04-15-2023 Bacteria LM Ql (Urine sed) Trace /HPF Normal Trace/HPF [facility] UA Auto SS Bilirubin Ql (U) Negative (04/15/23 12:21 AM) Normal Negative [facility] UA Auto SS Clarity (U) Clear (04/15/23 12:21 AM) Normal Clear [facility] UA Auto SS Color (U) Yellow (04/15/23 12:21 AM) Normal Yellow [facility] UA Auto SS Epithelial cells.squamous LM.HPF (Urine sed) [#/Area] 5-8 /HPF Normal 0-2/HPF [facility] UA Auto SS Glucose Test strip (U) [Mass/Vol] Negative (04/15/23 12:21 AM) Normal Negative [facility] UA Auto SS Hemoglobin Ql (U) Negative (04/15/23 12:21 AM) Normal Negative [facility] UA Auto SS Ketones (U) [Mass/Vol] Trace *NA* (04/15/23 12:21 AM) Invalid Interpretation Code Negative [facility] UA Auto SS Reddell.plasma/Lithi um.RBC (Bld) [Mass ratio] 0-3 /HPF Normal 0-3/HPF [facility] UA Auto SS Mucus Ql (Urine sed) Trace (04/15/23 12:21 AM) Normal [facility] UA Auto SS Nitrite Ql (U) Negative (04/15/23 12:21 AM) Normal Negative [facility] UA Auto SS pH (U) 6.0 *NA* (04/15/23 12:21 AM) Invalid Interpretation Code 5.0 - 9.0 [facility] UA Auto SS Protein (U) [Mass/Vol] Trace *ABN* (04/15/23 12:21 AM) Invalid Interpretation Code Negative [facility] UA Auto SS Specific gravity (U) [Rel density] 1.025 *NA* (04/15/23 12:21 AM) Invalid Interpretation Code 1.005 - 1.030 [facility] UA Auto SS UA Spec Desc Clean Catch (04/15/23 12:21 AM) Normal [facility] UA Auto SS Urobilinogen Qn (U) 0.7126472 {Keyla'U}/dL Normal 0.0 - 1.0 EU/dL [facility] UA Auto SS WBC Auto Ql (U) Trace *ABN* (04/15/23 12:21 AM) Invalid Interpretation Code Negative [facility] UA Auto SS WBC LM.HPF (Urine sed) [#/Area] 0-5 /HPF Normal 0-5/HPF [facility] UA Auto SS eGFRon 04-15-2023 GFR/1.73 sq M.predicted among non-blacks MDRD (S/P/Bld) [Vol rate/Area] 121 mL/min/1.73 m2 Normal >=59 [facility] Comment on above: Order Comment: Order added by Discern Expert. Result Comment: Manager Client Service sammie kidney disease could be indicated at eGFR's of less than 60 mL/min/1.73m2. Kidney failure is indicated at less than 15 mL/min/1.73m2. Performed By: #### 2 440753, 6800931, 6339340, 1955587, 9741083, 51885507 #### [facility] [address] [place] [address] Consent for Treatmenton 03-24 Consent for Treatment [id number] 0CD:127 Normal [facility] C Urineon 03-12-2023 Bacteria identified Cx Nom (U) Microbiology PROCEDURE: Urine Culture [R1] SOURCE: U CleanCatch BODY SITE: COLLECTED DATE/TIME: 03/10/2023 19:36 EDT RECEIVED DATE/TIME: 03/10/2023 20:40 EDT START DATE/TIME: 03/10/2023 20:40 EDT FREE TEXT SOURCE: Wil Chandler PA-C. Wil Chandler PA-C. FINAL REPORTS Final Report [] Verified Date/Time: 03/12/2023 11:34 EDT 3,000 cfu/ml Mixed skin contaminants Performing Locations R1: This test was performed at: [facility], [address] [place] [address], [address] , , [facility] Comment on above: Performed By: #### 2 710318, 9437509, 4169936, 6072271, 8853760, [id number] #### [facility] [address] [place] [address] ED Note-Physicianon 03-12-20 ED Note-Physician Basic Information Time Seen: Wil Chandler PA-C 03/10/2023 17:28 Chief Complaint Pt has lower abd pain since this morning History of Present Illness A 27-year-old female reports emergency department with a chief complaint of lower abdominal pain. Reports that she believes that she is having a Crohn's flareup. She states that she did reach out to her GI doctor, worst at the [facility], and because of the pain she is in, was told that the emergency department. Reports that she is nauseous, but has not been having any extra vomiting. She states that she is having increased stool output from her ostomy, but has not noticed any blood in her ostomy. She reports that she just is having a flareup. Reports always been taken at home for pain is Tylenol. Denies any fevers or chills. Denies any chest pain or shortness of breath with this. Denies any allergies. States that she just wants him to help with this flare. Review of Systems A 10 point review of systems is negative except as noted above. Medical and Surgical History: Reviewed and noted Social history: Lives at home Family History: Reviewed. Tobacco: Denies, former Physical Exam Vitals & Measurements T: 36.8 ?C(Oral) HR: 97(Peripheral) RR: 18 BP: 134/80 SpO2: 97% HT: 168 cm WT: 91.6 kg BMI: 32.45 General: The patient appears well and in no apparent distress. Patient is resting comfortably on bed. Afebrile Skin: Warm, dry, no pallor noted. Head: Normocephalic, atraumatic Neck: No JVD Eye: PERRLA, EOMI ENT: Moist mucus membranes Cardiovascular: Regular rate normal peripheral perfusion. Radial pulses +2 bilaterally Respiratory: No respiratory distress no accessory muscle use no obvious audible wheezing. Lung sounds clear auscultation Chest Wall: no deformity Musculoskeletal: normal ROM, no deformity, no swelling GI: No obvious distention soft nontender nondistended no guarding rebounding or rigidity. No CVA tenderness bilaterally Neurological: A&O moves all extremities equal strength and symmetry Psychiatric: Cooperative and appropriate Medical Decision Making MEDICAL DECISION MAKING Number and Complexity of Problems Differential Diagnosis: [] [facility] Data External documents reviewed: [] My EKG interpretation: [] My CT interpretation: [] My X-ray interpretation: [] My Ultrasound interpretation: Reviewed Decision rules/scores evaluated: [] Discussed with: [] Treatment and Disposition ED Course: A 27-year-old female reports emergency department chief complaint of lower abdominal pain. Believes that she is having a Crohn's flareup. She states that she has had these before. Reports that due to her abdominal pain, her GI doctor told her to go to the emergency department. On physical exam patient resting comfortably in the bed. She does have some mild lower abdominal tenderness, but no rebound tenderness or guarding is noted. Based on her history of Crohn's disease, we did not do a CT. She reports that she is having nausea, no vomiting. Reports increased output of her ostomy. Denies any fevers or chills. We did obtain lab work on the patient. Lab work reviewed and noted. Patient did test positive for her test. Due to this, we did do a quantitative level. Quantitative level was elevated at 17,000, so we did obtain a ultrasound of the patient's abdomen. Ultrasound did come in, and confirm an intrauterine . No signs of any ectopic . Patient is approximately 5 weeks . I did discuss this with her, which she was understanding with. We did improve the patient's symptoms while she was here in the emergency department. I discussed that with her though, she needs to follow-up with [facility]. Patient was understanding. Discussed return precautions. She denied any vaginal bleeding. Follow-up with your primary care provider in 3 to 5 days. If symptoms worsen, do not improve, or new symptoms arise please report back to emergency department for further evaluation. The patient was understanding and agreeable to plan moving forward. Shared decision making: [] Code status: [] Assessment/Plan Hx of Crohn's disease (Z87.19: Personal history of other diseases of the digestive system) Lower abdominal pain (R10.30: Lower abdominal pain, unspecified) (Z34.90: Encounter for supervision of normal , unspecified, unspecified trimester) Orders: morphine, 4 mg = 2 mL, Injection, IV Push, Once, Stop date 03/10/23 17:35:00 EDT, STAT, Start date 03/10/23 17:35:00 EDT, 03/10/23 17:35:00 EDT promethazine, 12.5 mg = 0.5 mL, Injection, IV Push, Once, Stop date 03/10/23 17:35:00 EDT, STAT, Start date 03/10/23 17:35:00 EDT, 03/10/23 17:35:00 EDT Sodium Chloride 0.9% intravenous solution, 1,000 mL, Soln-IV, IV, Once, Stop date 03/10/23 17:35:00 EDT, STAT, Start date 03/10/23 17:35:00 EDT, Infuse over 61, minute(s) Add on Test Automated Diff Basic Metabolic Panel Beta hCG Qual Beta hCG Quantitat (more content not included)... Normal [facility] Comment on above: Result Comment: Elec tronically Signed By: Wil Chandler PA-C\.br\Date and Time Signed: 03/10/23 22:46 EDT\.br\Electronically Co-Signed By: Elliot Macias DO\.br\Date and Time Co-Signed: 03/12/23 20:51 EDT\.br\Electronically Co-Signed By: Bernadette Francis PA-C\.br\Date and Time Co-Signed: 04/05/23 13:26 EDT Discharge Instructionson Discharge Instructions [id number]:127 Normal [facility] US 1st Trimesteron 03-11-2023 US 1st Trimester Exam Date/Time: 03/10/2023 21:19 EDT Reason for Exam: abdominal pain;Other (please specify) Report IMPRESSION: EARLY SINGLE INTRAUTERINE GESTATION. Composite Ultrasound Age: 5 weeks, 6 days CLINICAL HISTORY: abdominal pain. Crohn's flareup SUSHMA from average ultrasound age: 0211/04/2023 Composite Ultrasound Age: 5 weeks, 6 days COMPARISON: None COMMENT: Transabdominal and transvaginal images were obtained. The uterus measurements and an estimated volume are: Uterus Length: 7.8 cm Uterus Width: 5.3 cm Uterus Height: 3.9 cm Uterus Volume: 83.2 cm3 The uterus is otherwise unremarkable. A single gestational sac is identified within the uterine fundus with a diameter of: Mean Sac Diameter: 1.2 cm A yolk sac is identified within the gestational sac. pole is not seen. The crown-rump length and the corresponding gestational age +/- 1 week are: Composite Ultrasound Age: 5 weeks, 6 days SUSHMA from average ultrasound age: 0211/04/2023 There is no evidence of subchorionic hemorrhage. The right ovary measurements and estimated volume are: Right Ovary Length: 2.7 cm Right Ovary Width: 1.5 cm Right Ovary Height: 1.6 cm Right Ovary Volume: 3.3 cm3 The left ovary measurements and estimated volume are: Left Ovary Length: 4.3 cm Left Ovary Width: 3.4 cm Left Ovary Height: 3.6 cm Left Ovary Volume: 27.0 cm3 There is a 2.6 cm corpus luteum cyst in the left ovary. There is no free fluid in the cul-de-sac. Report Ordering Provider: Wil Chandler FINAL REPORT Dictated: 03/11/2023 7:23 am Magdi Garg M.D. Signed (Electronic Signature): 03/11/2023 7:23 am Signed by: Magdi Garg M.D. Transcribed by: CLARICE Technologist: YESSICA Technical Comments Unknown History 1 Para 1 Normal [facility] US Transvaginalon 03-11-2023 US Transvaginal Exam Date/Time: 03/10/2023 21:17 EDT Reason for Exam: pelvic pain Report Please refer to the report of ultrasound of on 03/10/2023. Ordering Provider: Wil Chandler FINAL REPORT Dictated: 03/11/2023 7:25 am Magdi Garg M.D. Signed (Electronic Signature): 03/11/2023 7:25 am Signed by: Magdi Garg M.D. Transcribed by: CLARICE Technologist: YESSICA Normal [facility] Auto Diffon 03-10-2023 Basophils/100 WBC (Bld) 0.4 % Normal 0.0-2.0 [facility] Comment on above: Order Comment: Order Added by Discern Expert. Performed By: #### 2 383206, 4029401, 8904617, 0937089, 5351727, 18093899 #### [facility] [address] [place] [address] Basophils/Leukocytes Auto (Bld) [Pure # fraction] 0.0 E9/L Normal 0.0-0.2 [facility] Comment on above: Order Comment: Order Added by Discern Expert. Performed By: #### 2 785908, 9536474, 8596592, 3098635, 2914618, 33692210 #### [facility] [address] [place] [address] Eosinophils/100 WBC (Bld) 1.5 % Normal 0.0-8.0 [facility] Comment on above: Order Comment: Order Added by Discern Expert. Performed By: #### 2 311756, 2756503, 0782387, 6873885, 2605961, 84974382 #### [facility] [address] [place] [address] Eosinophils/Leukocyt es Auto (Bld) [Pure # fraction] 0.1 E9/L Normal 0.0-0.5 [facility] Comment on above: Order Comment: Order Added by Discern Expert. Performed By: #### 2 756337, 3333340, 9363989, 1977188, 3965472, 34288252 #### [facility] [address] [place] [address] Lymphocytes/100 WBC (Bld) 42.5 % Normal 14.0-50.0 [facility] Comment on above: Order Comment: Order Added by Discern Expert. Performed By: #### 2 034427, 3239961, 3852454, 8022573, 4650620, 29956458 #### [facility] [address] [place] [address] Lymphocytes/Leukocyt es Auto (Bld) [Pure # fraction] 2.1 E9/L Normal 1.0-4.0 [facility] Comment on above: Order Comment: Order Added by Discern Expert. Performed By: #### 2 222391, 2255579, 8689891, 0049595, 1292405, 09513814 #### [facility] [address] [place] [address] Monocytes/100 WBC (Bld) 8.6 % Normal 4.0-14.0 [facility] Comment on above: Order Comment: Order Added by Esdras Expert. Performed By: #### 2 403331, 2407102, 2725190, 6492542, 3079952, 47247077 #### [facility] [address] [place] [address] Monocytes/Leukocytes Auto (Bld) [Pure # fraction] 0.4 E9/L Normal 0.2-1.0 [facility] Comment on above: Order Comment: Order Added by Discern Expert. Performed By: #### 2 699909, 3630610, 6659911, 4277514, 0988235, 92103086 #### [facility] [address] [place] [address] Neutrophils/100 WBC (Bld) 47.0 % Normal 36.0-75.0 [facility] Comment on above: Order Comment: Order Added by Esdras Expert. Performed By: #### 2 859139, 9825190, 9740891, 9440751, 7650798, 67809795 #### [facility] [address] [place] [address] Neutrophils/Leukocyt es Auto (Bld) [Pure # fraction] 2.3 E9/L Normal 2.0-7.5 [facility] Comment on above: Order Comment: Order Added by Esdras Expert. Performed By: #### 2 514806, 2668530, 2590500, 0569687, 7819557, 02491451 #### [facility] [address] [place] [address] B hCG Qualon 03-10-2023 Beta hCG Ql Positive Normal [facility] Comment on above: Performed By: #### 2 068893, 3207407, 2633517, 2226713, 2067839, 50330510 #### [facility] [address] [place] [address] BMPon 03-10-2023 Creatinine [Mass/Vol] 0.6 mg/dL Normal 0.5-1.3 [facility] Comment on above: Performed By: #### 2 916659, 8984077, 5217326, 7416140, 8612154, 89651081 #### [facility] [address] [place] [address] Urea nitrogen [Mass/Vol] 9 mg/dL Normal 5-21 [facility] Comment on above: Performed By: #### 2 078192, 6838587, 9045928, 3084007, 8553575, 51039238 #### [facility] [address] [place] [address] Urea nitrogen/Creatinine [Mass ratio] 15 No Units Normal 10-20 [facility] Comment on above: Performed By: #### 2 811149, 7305428, 6307601, 0558477, 3271214, 54083141 #### [facility] [address] [place] [address] Anion gap [Moles/Vol] 9 mmol/L Normal 6-16 [facility] Comment on above: Performed By: #### 2 397358, 6349979, 1697879, 4597269, 6732122, 89752178 #### [facility] [address] [place] [address] Calcium [Mass/Vol] 8.7 mg/dL Low 8.9-11.1 [facility] Comment on above: Performed By: #### 2 365347, 1120780, 2983073, 3100326, 5546321, 57389544 #### [facility] [address] [place] [address] Chloride [Moles/Vol] 108 mmol/L Normal 101-111 [facility] Comment on above: Performed By: #### 2 638421, 2749268, 1892055, 6608857, 7808306, 44798738 #### [facility] [address] [place] [address] CO2 [Moles/Vol] 21 mmol/L Normal 21-31 [facility] Comment on above: Performed By: #### 2 207354, 1407328, 2246468, 0966966, 4053555, 10406467 #### [facility] [address] [place] [address] Glucose [Mass/Vol] 97 mg/dL Normal 55-199 [facility] Comment on above: Result Comment: If t his glucose result represents a fasting glucose, interpretation should refer to the following reference range: 55-99 mg/dL Performed By: #### 2 268538, 7444137, 3534630, 7292650, 0749612, 26214885 #### [facility] [address] [place] [address] Potassium [Moles/Vol] 3.5 mmol/L Normal 3.5-5.3 [facility] Comment on above: Performed By: #### 2 497883, 9129368, 5453644, 1615112, 9460223, 71855937 #### [facility] [address] [place] [address] Sodium [Moles/Vol] 134 mmol/L Low 135-145 [facility] Comment on above: Performed By: #### 2 587968, 4334816, 0141893, 4415270, 1670443, 53683138 #### [facility] [address] [place] [address] BhCG Quanton 03-10-2023 [place] [address] m[IU]/mL High 1-3 F [facility] Comment on above: Result Comment: GEST ATIONAL AGE HCG RANGE (mIU/mL) NON- <1-3 0.2-1 WEEKS 5-50 1-2 WEEKS 50-500 2-3 WEEKS 100-5,000 3-4 WEEKS 500-10,000 4-5 WEEKS 1,000-50,000 5-6 WEEKS 10,000-100,000 6-8 WEEKS 15,000-200,000 8-12 WEEKS 10,000-100,000 Performed By: #### 2 521960, 3277946, 6809182, 1342575, 3433467, 29014002 #### [facility] [address] [place] [address] CBC w/ Auto Diffon 06-18-202 3 Erythrocyte distribution width (RBC) [Ratio] 15.9 % High 10.9-14.2 [facility] Comment on above: Performed By: #### 2 794807, 9630156, 0006667, 0218080, 4852168, 36345194 #### [facility] [address] [place] [address] Hematocrit (Bld) [Volume fraction] 34.6 % Normal 34.0-46.0 [facility] Comment on above: Performed By: #### 2 147211, 7842928, 3846730, 8428996, [id number], [id number] #### [facility] [address] [place] [address] Hemoglobin (Bld) [Mass/Vol] 11.2 g/dL Low 12.0-16.0 [facility] Comment on above: Performed By: #### 2 132211, 7344536, 9312609, 2629395, 8768361, [id number] #### [facility] [address] [place] [address] MCH (RBC) [Entitic mass] 25.6 pg Low 27.0-34.0 [facility] Comment on above: Performed By: #### 2 777927, 4339385, 0230284, 7495238, 8563213, 81439536 #### [facility] [address] [place] [address] MCHC (RBC) [Mass/Vol] 32.4 g/dL Normal 31.4-36.0 [facility] Comment on above: Performed By: #### 2 282978, 9806142, 9091849, 3743016, 0218053, 42765655 #### [facility] [address] [place] [address] MCV (RBC) [Entitic vol] 78.8 fL Low 80.0-100.0 [facility] Comment on above: Performed By: #### 2 274969, 6273197, 0281693, 4143326, 6826580, 19848406 #### [facility] [address] [place] [address] Platelet mean volume (Bld) [Entitic vol] 7.9 fL Normal 6.4-10.8 [facility] Comment on above: Performed By: #### 2 969283, 3154323, 2426633, 3367477, 7126530, [id number] #### [facility] [address] [place] [address] Platelets (Bld) [#/Vol] 245.0 E9/L Normal 150.0-500.0 [facility] Comment on above: Performed By: #### 2 585693, 9841837, 1570993, 3923651, 7957151, 77614029 #### [facility] [address] [place], [place] [id number] RBC (Bld) [#/Vol] 4.4 E12/L Normal 4.3-5.9 [facility] Comment on above: Performed By: #### 2 799233, 3456341, 1873906, 3128746, 5813806, 67104287 #### [facility] [address] [place] [address] WBC corrected for nucl RBC Auto (Bld) [#/Vol] 4.9 E9/L Normal 4.0-11.0 [facility] Comment on above: Performed By: #### 2 038479, 9114751, 3038463, 4293485, 1122895, 36507430 #### [facility] [address] [place] [address] CHEMISTRYOrdered By: SYSTEM SYSTEM on 03-10-2023 Albumin [Mass/Vol] 3.9 g/dL Normal 3.3 - 5.0 gm/dL [facility] Albumin/Globulin [Mass ratio] 1.0 {ratio} Low 1.1 - 2.2 [facility] ALP [Catalytic activity/Vol] 66 [iU]/d Normal 21 - 98 Int._Unit/L [facility] ALT No additional P-5'-P [Catalytic activity/Vol] 26 [iU]/d Normal 6 - 46 Int._Unit/L [facility] Anion gap [Moles/Vol] 9 mmol/L Normal 6 - 16 mEq/L [facility] AST [Catalytic activity/Vol] 24 [iU]/d Normal 5 - 43 Int._Unit/L [facility] Bilirubin [Mass/Vol] 0.5 mg/dL Normal 0.0 - 1 .1 mg/dL [facility] Bilirubin.direct [Mass/Vol] 0.1 mg/dL Normal 0.1 - 0.4 mg/dL [facility] Bilirubin.indirect [Mass or moles/Vol] 0.4 mg/dL Normal 0.1 - 0.9 mg/dL [facility] Calcium [Mass/Vol] 8.7 mg/dL Low 8.9 - 11. 1 mg/dL [facility] Chloride [Moles/Vol] 108 mmol/L Normal 101 - 1 11 mmol/L [facility] CO2 [Moles/Vol] 21 mmol/L Normal 21 - 31 mmol/L [facility] Creatinine [Mass/Vol] 0.6 mg/dL Normal 0.5 - 1.3 mg/dL [facility] GFR/1.73 sq M.predicted among non-blacks MDRD (S/P/Bld) [Vol rate/Area] 126 mL/min/1.73 m2 Normal >=59mL/min/1.7 3 m2 [facility] Chem S Globulin (S) [Mass/Vol] 4.1 g/dL High 1.4 - 4.0 gm/dL [facility] Glucose [Mass/Vol] 97 mg/dL Normal 55 - 199 mg/dL [place] [address] m[IU]/mL High 1 - 3 mIU/mL [facility] Lipase [Catalytic activity/Vol] 59 U/L High 13 - 58 unit/L [facility] Potassium [Moles/Vol] 3.5 mmol/L Normal 3.5 - 5.3 mmol/L [facility] Protein [Mass/Vol] 8.0 g/dL High 6.0 - 7.8 gm/dL [facility] Sodium [Moles/Vol] 134 mmol/L Low 135 - 145 mmol/L [facility] Urea nitrogen [Mass/Vol] 9 mg/dL Normal 5 - 21 mg/dL [facility] Remisol Urea nitrogen/Creatinine [Mass ratio] 15 mg/mg Normal 10 - 20 [facility] Remisol Consent for Treatmenton 02-21 Consent for Treatment [id number] 0CD:[id number] Normal [facility] ED Clinical Summaryon 2022 ED Clinical Summary [address] [address] ED Clinical Summary Person Information Name: ROLA AGUILAR [facility] Age: 27 Years : 1995 Sex: Female Language: Iraqi PCP: NONE, XXXX Marital Status: Single Phone: [phone] Visit Id: Visit Reason: Abdominal pain; ABD PAIN/N/D Speciality: Acuity: 3 Enc Type: Emergency Med Service: Emergency Arrival: 03/10/2023 17:22:42 Discharge: 03/10/2023 21:32:00 LOS: 000 04:10 Checkin: 03/10/2023 17:22:42 Checkout: 03/10/2023 21:32:00 Dispo Type: Home (Routine DC) EVENTS: Event Name Event Status Request Date/Time Start Date/Time Complete Date/Time Arrive Complete 03/10/2023 17:22:42 03/10/2023 17:22:42 03/10/2023 17:22:42 Document Home Meds Request 03/10/2023 17:22:42 Triage Complete 03/10/2023 17:22:42 03/10/2023 17:31:36 03/10/2023 17:31:36 Bed Assign Complete 03/10/2023 17:26:02 03/10/2023 17:26:02 03/10/2023 17:26:02 Dr Exam Complete 03/10/2023 17:26:02 03/10/2023 17:28:44 03/10/2023 17:28:44 RN Exam Complete 03/10/2023 17:26:02 03/10/2023 17:45:48 03/10/2023 17:45:48 Registration Complete 03/10/2023 17:28:44 03/10/2023 17:29:44 03/10/2023 17:29:44 Reg Complete Request 03/10/2023 17:29:44 Reg Bed Request Complete 03/10/2023 17:29:44 03/10/2023 17:29:44 03/10/2023 17:29:44 Dr Exam Complete 03/10/2023 17:33:39 03/10/2023 17:33:39 03/10/2023 17:33:39 Registration Request 03/10/2023 17:33:39 Meds Admin Complete 03/10/2023 17:35:49 03/10/2023 18:11:46 Pending Labs Complete 03/10/2023 17:35:49 03/10/2023 19:53:58 Lab Complete 03/10/2023 17:35:49 03/10/2023 19:53:58 Urine Collect Complete 03/10/2023 17:35:49 03/10/2023 19:53:58 Pending Labs Complete 03/10/2023 17:46:02 03/10/2023 17:46:02 03/10/2023 18:07:22 Lab Complete 03/10/2023 17:46:02 03/10/2023 17:46:02 03/10/2023 18:07:22 Pending Labs Complete 03/10/2023 18:06:22 03/10/2023 18:06:22 03/10/2023 18:06:32 Lab Complete 03/10/2023 18:06:22 03/10/2023 18:06:22 03/10/2023 18:06:32 Pending Labs Complete 03/10/2023 18:21:38 03/10/2023 18:21:38 03/10/2023 18:36:05 Pending Labs Complete 03/10/2023 18:28:43 03/10/2023 18:28:43 03/10/2023 18:28:43 Pending Labs Complete 03/10/2023 18:35:28 03/10/2023 18:35:28 03/10/2023 19:15:57 Lab Complete 03/10/2023 18:35:28 03/10/2023 18:35:28 03/10/2023 19:15:57 US Complete 03/10/2023 19:23:08 03/10/2023 20:29:35 03/10/2023 21:19:43 Pending Labs Inlab 03/10/2023 19:43:46 03/10/2023 19:43:46 Lab Inlab 03/10/2023 19:43:46 03/10/2023 19:43:46 US Complete 03/10/2023 20:55:27 03/10/2023 20:55:37 03/10/2023 21:17:49 Discharge Complete 03/10/2023 21:16:25 03/10/2023 21:34:07 03/10/2023 21:34:07 Transfer Complete 03/10/2023 21:34:08 03/10/2023 21:34:08 03/10/2023 21:34:08 ADDRESS: [address] [place] [address] [address] [place] [id number] PHYS DOC NOTES: MEDICAL INFORMATION: Prescriptions Given: Medications to Continue with No Changes Other Medications acetaminophen-hydrocod one ([place] 325 mg-5 mg oral tablet) 1 Tablets By Mouth every 6 hours as needed for pain. Refills: 0. acetaminophen-hydrocod one ([place] 325 mg-5 mg oral tablet) 1 Tablets By Mouth every 6 hours as needed for pain. Refills: 0. acetaminophen-oxycodon e (Percocet 325 mg-5 mg Tab) 1 Tablets By Mouth every 6 hours as needed as needed for pain. Refills: 0. acetaminophen-oxycodon e (Percocet 5 mg-325 mg oral tablet) 1 Tablets By Mouth every 6 hours. Refills: 0. acetaminophen-oxycodon e (Percocet 5 mg-325 mg oral tablet) 1 Tablets By Mouth every 6 hours. Refills: 0. acetaminophen-oxycodon e (Percocet 5 mg-325 mg oral tablet) 1 Tablets By Mouth every 6 hours. Refills: 0. hydrOXYzine (Vistaril 25 mg Tab) 1-2 tab(s) By Mouth 4 times a day as needed as needed for anxiety. Refills: 0. ondansetron (Zofran 4 mg Tab) 1 Tablets By Mouth every 8 hours as needed Nausea/Vomiting. Refills: 0. ondansetron (Zofran ODT 4 mg Tab-Dis) 1 Tablets By Mouth every 8 hours. Refills: 0. ondansetron (Zofran ODT 4 mg Tab-Dis) 1 Tablets By Mouth every 8 hours as needed Nausea/Vomiting. Refills: 0. predniSONE (predniSONE 10 mg Tab) 4 tab(s) Oral Daily for 1 week, then 3 tablets oral daily for 1 week, then 2 tablets oral daily for 1 week then 1 tablet oral daily for 1 week. Refills: 0. promethazine (Phenergan 25 mg Supp) 1 Suppositories By rectum every 6 hours as needed Nausea/Vomiting. Refills: 0. promethazine (promethazine 25 mg Tab) 1 Tablets By Mouth every 6 hours as needed as needed for nausea/vomiting. Refills: 0. PATIENT EDUCATION INFORMATION: Instructions: First Trimester of , Emnr-pd-Ajrb; Crohn's Disease; Abdominal Pain, Adult, Cerp-nr-Vizk Follow up: With: Address: When: Anoop Lopez [address] [place] [address] EpiGaN (1) In 3 days 03/13/2023 Comments: Follow-up with Dr. Lopez for further evaluation of your . With: Address: When: Vanessa Carver [address] [place] [address] EpiGaN (1) In 3 days 03/13/2023 Co (more content not included)... Normal [facility] ED Patient Education Noteon 03-10-2023 ED Patient Education Note Gastroenterology Abdominal Pain, Adult Many things can cause belly (abdominal) pain. Most times, belly pain is not dangerous. Many cases of belly pain can be watched and treated at home. Sometimes, though, belly pain is serious. Your doctor will try to find the cause of your belly pain. Follow these instructions at home: Medicines ? Take elvl-fpl-qrufpxr and prescription medicines only as told by your doctor. ? Do not take medicines that help you poop (laxatives) unless told by your doctor. General instructions ? Watch your belly pain for any changes. ? Drink enough fluid to keep your pee (urine) pale yellow. ? Keep all follow-up visits as told by your doctor. This is important. Contact a doctor if: ? Your belly pain changes or gets worse. ? You are not hungry, or you lose weight without trying. ? You are having trouble pooping (constipated) or have watery poop (diarrhea) for more than 2?3 days. ? You have pain when you pee or poop. ? Your belly pain wakes you up at night. ? Your pain gets worse with meals, after eating, or with certain foods. ? You are vomiting and cannot keep anything down. ? You have a fever. ? You have blood in your pee. Get help right away if: ? Your pain does not go away as soon as your doctor says it should. ? You cannot stop vomiting. ? Your pain is only in areas of your belly, such as the right side or the left lower part of the belly. ? You have bloody or black poop, or poop that looks like tar. ? You have very bad pain, cramping, or bloating in your belly. ? You have signs of not having enough fluid or water in your body (dehydration), such as: ? Dark pee, very little pee, or no pee. ? Cracked lips. ? Dry mouth. ? Sunken eyes. ? Sleepiness. ? Weakness. ? You have trouble breathing or chest pain. Summary ? Many cases of belly pain can be watched and treated at home. ? Watch your belly pain for any changes. ? Take odxy-meg-eqmjqbq and prescription medicines only as told by your doctor. ? Contact a doctor if your belly pain changes or gets worse. ? Get help right away if you have very bad pain, cramping, or bloating in your belly. This information is not intended to replace advice given to you by your health care provider. Make sure you discuss any questions you have with your health care provider. Document Revised: 01/18/2020 Document Reviewed: 01/18/2020 [employer] Patient Education ? 2022 [employer]. Immunology Crohn's Disease Crohn's disease is a long-lasting (chronic) disease that affects the gastrointestinal (GI) tract. Crohn's disease often causes irritation and inflammation in the small intestine and the beginning of the large intestine, but it can affect any part of the GI tract. Crohn's disease is part of a group of illnesses that are known as inflammatory bowel disease (IBD). Crohn's disease may start slowly and get worse over time. Symptoms may come and go. They may also go away for months or even years at a time (remission). What are the causes? The exact cause of this condition is not known. It may involve a response that causes your body's disease-fighting system (immune system) to attack healthy cells and tissues (autoimmune response). Bacteria, genes, and your environment may also play a role. What increases the risk? The following factors may make you more likely to develop this condition: ? Having a family member who has Crohn's disease, another IBD, or an autoimmune condition. ? Using products that contain nicotine or tobacco, such as cigarettes and e-cigarettes. ? Being in your 20s. ? Having Eastern ancestry. What are the signs or symptoms? The main symptoms of this condition involve your GI tract. These include: ? Diarrhea. ? Pain or cramping in the abdomen commonly felt in the lower right side of the abdomen. ? Frequent watery or bloody stools. ? Constipation. This may mean having: ? Fewer bowel movements in a week than normal. ? Difficulty having a bowel movement. ? Stools that are dry, hard, or larger than normal. ? Rectal bleeding or pain. ? An urgent need to have a bowel movement. ? The feeling that you are not finished having a bowel movement. Other symptoms may include: ? Unexplained weight loss. ? Tiredness (fatigue). ? Fever. ? Nausea or appetite loss. ? Joint pain. ? Vision changes. ? Red bumps or sores on the skin. ? Sores inside the mouth. How is this diagnosed? This condition may be diagnosed based on: ? Your symptoms and medical history. ? A physical exam. ? Tests, which may include: ? Blood tests. ? Stool sample tests. ? Imaging tests, such as X-rays and CT scans. ? Tests to examine the inside of your intestines using a long, flexible tube that has a light and a camera on the end (colonoscopy). ? A procedure to remove tissue samples from inside your bowel for testing (biopsy). You may need to w (more content not included)... Normal [facility] ED Patient Summaryon 023 ED Patient Summary [address] [address] Patient Discharge Instructions Person Information Name: ROLA AGUILAR Age: 27 Years Arrival Date: 03/10/2023 17:22:42 Discharge Diagnosis: Hx of Crohn's disease; Lower abdominal pain; Primary Care Physician: NONE, XXXX Provider Information Primary Provider: Elliot Macias DO [employer] Cutting Machine Operator:Kelly The exam and treatment you received in the Emergency Department were for an urgent problem and are not intended as complete care. It is important that you follow up with a doctor, nurse practitioner, or physician?s assistant professor surgical technology for ongoing care. If your symptoms become worse or you do not improve as expected and you are unable to reach your usual health care provider, you should return to the Emergency Department. We are available 24 hours a day. ROLA AGUILAR has been given the following list of patient education materials, prescriptions and follow-up instructions: Follow-up Instructions: With: Address: When: Anoop Lopez [address] [place] [address] EpiGaN (1) In 3 days 03/13/2023 Comments: Follow-up with Dr. Lopez for further evaluation of your . With: Address: When: Vanessa Carver [address] [place] [address] EpiGaN (1) In 3 days 03/13/2023 Comments: Follow-up with your primary care provider in 3 to 5 days. If symptoms worsen, do not improve, or new symptoms arise please report back to emergency department for further evaluation. In the event that this physician does not participate in your insurance network, please consult with your insurance company to find a nearby participating provider. Patient Education Materials: First Trimester of , Lory-qi-Hctu; Crohn's Disease; Abdominal Pain, Adult, Woma-xq-Iigz A MESSAGE TO ALL PATIENTS REGARDING OPIOIDS PRESCRIPTION OPIOIDS: WHAT YOU NEED TO KNOW Prescription opioids can be used to help relieve tltvqevg-gx-tnryti pain and are often prescribed following a surgery or injury, or for certain health conditions. These medications can be an important part of the treatment but also come with serious risks. It is important to work with your healthcare provider to make sure you are getting the safest, most effective care. WHAT ARE THE RISKS AND SIDE EFFECTS OF OPIOID USE? Prescription opioids carry serious risks of addiction and overdose, especially with prolonged use. An opioid overdose, often marked by slowed breathing, can cause sudden . The use of prescription opioids can have a number of side effects as well, even when taken as directed: ? Tolerance?meaning you might need to take more of the medication for the same pain relief ? Physical dependence?meaning you have symptoms of withdrawal when a medication is stopped ? Increased sensitivity to pain ? Constipation ? Nausea, vomiting, and dry mouth ? Sleepiness and dizziness ? Confusion ? Depression ? Low levels of testosterone that can result in lower sex drive, energy, and strength ? Itching and sweating RISKS ARE GREATER WITH: ? History of drug misuse, substance use disorder, or overdose ? Mental health conditions (such as depression or anxiety) ? Sleep apnea ? Older age (65 years and older) ? Avoid alcohol while taking prescription opioids. Also, unless specifically advised by your health care provider, medications to avoid include: ? Benzodiazepines (such as Xanax or Valium) ? Muscle relaxants (such as Soma or Flexeril) ? Hypnotics (such as Ambien or Lunesta) ? Other prescription opioids KNOW YOUR OPTIONS Talk to your health care provider about ways to manage your pain that don?t involve prescription opioids. Some of these options may actually work better and have fewer risks and side effects. Options may include: ? Pain relievers such as acetaminophen, ibuprofen, and naproxen ? Some medication that are also used for depression or seizures ? Physical therapy and exercise ? Cognitive behavioral therapy, a psychological, goal-directed approach, in which patients learn how to modify physical, behavioral, and emotional triggers of pain and stress. IF YOU ARE PRESCRIBED OPIOIDS FOR PAIN: ? Never take opioids in greater amounts or more often than prescribed. ? Follow up with your primary health care provider. o Work together to create a plan on how to manage your pain. o Talk about ways to help manage your pain that don?t involve prescription opioids. o Talk about any and all concerns and side effects. ? Help prevent misuse and abuse o Never sell or share prescription opioids. o Never use another person?s prescription opioids. ? Store prescription opioids in a secure place and out of reach of others (this may include visitors, children, friends, and family). ? Safely dispose of unused p (more content not included)... Normal [facility] HEMATOLOGYOrdered By: SYSTEM SYSTEM on 03-10-2023 Basophils/100 WBC (Bld) 0.4 % Normal 0.0 - 2.0 % [facility]eAutoSS Basophils/Leukocytes Auto (Bld) [Pure # fraction] 0.0 E9/L Normal 0.0 - 0.2 E9/L [facility] HemeAutoSS Eosinophils/100 WBC (Bld) 1.5 % Normal 0.0 - 8.0 % [facility]eAutoSS Eosinophils/Leukocyt es Auto (Bld) [Pure # fraction] 0.1 E9/L Normal 0.0 - 0.5 E9/L [facility]eAutoSS Lymphocytes/100 WBC (Bld) 42.5 % Normal 14.0 - 50.0 % [facility]eAutoSS Lymphocytes/Leukocyt es Auto (Bld) [Pure # fraction] 2.1 E9/L Normal 1.0 - 4.0 E9/L [facility]eAutoSS Monocytes/100 WBC (Bld) 8.6 % Normal 4.0 - 14.0 % [facility]eAutoSS Monocytes/Leukocytes Auto (Bld) [Pure # fraction] 0.4 E9/L Normal 0.2 - 1.0 E9/L [facility]AutoSS Neutrophils/100 WBC (Bld) 47.0 % Normal 36.0 - 75.0 % [facility]eAutoSS Neutrophils/Leukocyt es Auto (Bld) [Pure # fraction] 2.3 E9/L Normal 2.0 - 7.5 E9/L [facility] HEMATOLOGYOrdered By: Rakel Garrison on 03-10-2023 Erythrocyte distribution width (RBC) [Ratio] 15.9 % High 10.9 - 14.2 % [facility]Auto[facility] Hematocrit (Bld) [Volume fraction] 34.6 % Normal 34.0 - 46.0 % [facility]eAutoSS Hemoglobin (Bld) [Mass/Vol] 11.2 g/dL Low 12.0 - 16.0 gm/dL [facility]eAuto[facility] MCH (RBC) [Entitic mass] 25.6 pg Low 27.0 - 34.0 pg [facility]eAutoSS MCHC (RBC) [Mass/Vol] 32.4 g/dL Normal 31.4 - 36.0 gm/dL [facility] HemeAutoSS MCV (RBC) [Entitic vol] 78.8 fL Low 80.0 - 100.0 fL [facility] HemeAutoSS Platelet mean volume (Bld) [Entitic vol] 7.9 fL Normal 6.4 - 10.8 fL [facility] Platelets (Bld) [#/Vol] 245.0 E9/L Normal 150.0 - 500.0 E9/L [facility]eAutoSS RBC (Bld) [#/Vol] 4.4 E12/L Normal 4.3 - 5.9 E12/L [facility] HemeAutoSS WBC corrected for nucl RBC Auto (Bld) [#/Vol] 4.9 E9/L Normal 4.0 - 11.0 E9/L [facility] HemeAutoSS Hep Func Panelon 03-10-2023 Albumin [Mass/Vol] 3.9 g/dL Normal 3.3-5.0 [facility] Comment on above: Performed By: #### 2 [id number], 9089054, 6398918, 7189917, 0462639, [id number] #### [facility] [address] [place] [address] Albumin/Globulin (S) [Mass conc ratio] 1.0 Low 1.1-2.2 [facility] Comment on above: Performed By: #### 2 673550, 2501118, 1151936, 7698430, 5643094, [id number] #### [facility] [address] [place] [address] ALP [Catalytic activity/Vol] 66 Int._Unit/L Normal 21-98 [facility] Comment on above: Performed By: #### 2 975941, 8913804, 1165863, 3918200, 4234305, [id number] #### [facility] [address] [place] [address] ALT No additional P-5'-P [Catalytic activity/Vol] 26 Int._Unit/L Normal 6-46 [facility] Comment on above: Performed By: #### 2 746926, 3289540, 5411713, 9758462, 4111644, 11403910 #### [facility] [address] [place] [address] AST [Catalytic activity/Vol] 24 Int._Unit/L Normal 5-43 [facility] Comment on above: Performed By: #### 2 781596, 0132102, 5498370, 1180249, 3047020, 67772403 #### [facility] [address] [place] [address] Bilirubin [Mass/Vol] 0.5 mg/dL Normal 0.0-1.1 [facility] Comment on above: Performed By: #### 2 196225, 3787538, 6586620, 4477947, 5540313, 89591306 #### [facility] [address] [place] [address] Bilirubin.direct [Mass/Vol] 0.1 mg/dL Normal 0.1-0.4 [facility] Comment on above: Performed By: #### 2 031668, 0440983, 9940431, 8695483, 7042210, 52774689 #### [facility] [address] [place] [address] Bilirubin.indirect [Mass or moles/Vol] 0.4 mg/dL Normal 0.1-0.9 [facility] Comment on above: Performed By: #### 2 198595, 8235516, 4073768, 0977188, 8131781, 75600610 #### [facility] [address] [place] [address] Globulin (S) [Mass/Vol] 4.1 g/dL High 1.4-4.0 [facility] Comment on above: Performed By: #### 2 548474, 5742543, 7963425, 0674765, 2369746, 46456092 #### [facility] [address] [place] [address] Protein [Mass/Vol] 8.0 g/dL High 6.0-7.8 [facility] Comment on above: Performed By: #### 2 633002, 1034031, 3924874, 5399996, 2570005, 96640302 #### [facility] [address] [place] [address] Lipase Levelon 03-10-2023 Lipase [Catalytic activity/Vol] 59 U/L High 13-58 [facility] Comment on above: Performed By: #### 2 337272, 7410156, 3243298, 3511234, 2465615, 61303908 #### [facility] [address] [place] [address] SEROLOGYOrdered By: Rakel meadows on 03-10-2023 Beta hCG Ql Positive (03/10/23 5:40 PM) Normal [facility] Man Sero UA With Cult Reflexon 2022 Bacteria LM Ql (Urine sed) 1+ /HPF Abnormal Trace [facility] Comment on above: Performed By: #### 2 908798, 7233081, 5546561, 2509093, 3316892, 48124458 #### [facility] [address] [place] [address] Crystals LM Ql (Urine sed) Present Normal [facility] Comment on above: Performed By: #### 2 283288, 9687678, 1777479, 6169316, 5277485, [id number] #### [facility] [address] [place] [address] Epithelial cells.squamous LM.HPF (Urine sed) [#/Area] 5-8 Normal 0-2 [facility] Comment on above: Performed By: #### 2 914009, 3941411, 7211326, 7330014, 3554285, 31561263 #### [facility] [address] [place] [address] Reddell.plasma/Lithi um.RBC (Bld) [Mass ratio] 4-20 Normal 0-3 [facility] Comment on above: Performed By: #### 2 [id number], [id number], 1704251, 3892517, [id number], [id number] #### [facility] [address] [place] [address] Mucus Ql (Urine sed) TRACE Normal Fish [facility] Comment on above: Performed By: #### 2 [id number], [id number], 6174621, 6127016, 0532350, [id number] #### [facility] [address] [place] [address] WBC LM.HPF (Urine sed) [#/Area] 6-15 Abnormal 0-5 [facility] Comment on above: Performed By: #### 2 811134, 1894743, 0427956, 9748406, 3810453, [id number] #### [facility] [address] [place] [address] Bilirubin Ql (U) Negative Normal Negative [facility] Comment on above: Performed By: #### 2 081883, 9589206, 5262956, 1207616, 0757249, [id number] #### [facility] [address] [place], [place] [id number] Clarity (U) SL CLOUDY Abnormal Clear [facility] Comment on above: Performed By: #### 2 982855, 1086099, 5682947, 9523818, 8072190, [id number] #### [facility] [address] [place] [address] Color (U) YELLOW Normal Yellow [facility] Comment on above: Performed By: #### 2 216251, 6536932, 2993673, 1856041, 7772938, [id number] #### [facility] [address] [place] [address] Glucose Test strip (U) [Mass/Vol] Negative Normal Negative [facility] Comment on above: Performed By: #### 2 418421, 9964641, 0821847, 6320406, 6485857, [id number] #### [facility] [address] [place] [address] Hemoglobin Ql (U) Negative Normal Negative [facility] Comment on above: Performed By: #### 2 955466, 4688896, 4152167, 3116125, 8892567, [id number] #### [facility] [address] [place] [address] Ketones (U) [Mass/Vol] Negative Normal Negative [facility] Comment on above: Performed By: #### 2 673908, 5661395, 9064295, 4068664, 4113765, [id number] #### [facility] [address] [place] [address] Nitrite Ql (U) Negative Normal Negative [facility] Comment on above: Performed By: #### 2 193059, 0903804, 4567794, 7324025, 6597201, [id number] #### [facility] [address] [place] [address] pH (U) 6.0 [pH] Invalid Interpretation Code 5.0-9.0 [facility] Comment on above: Performed By: #### 2 088282, 2450052, 7289725, 2715512, 9246021, [id number] #### [facility] [address] [place] [address] Protein (U) [Mass/Vol] Negative Normal Negative [facility] Comment on above: Performed By: #### 2 865157, 6713858, 7587440, 1304061, 9329020, [id number] #### [facility] [address] [place] [address] Specific gravity (U) [Rel density] 1.020 Invalid Interpretation Code 1.005-1.030 [facility] Comment on above: Performed By: #### 2 065857, 5435340, 2426644, 6091712, 1324321, [id number] #### [facility] [address] [place] [address] Type of Urine collection method Clean Catch Normal [facility] Comment on above: Performed By: #### 2 916787, 4397944, 4004092, 8798531, 1972964, [id number] #### [facility] [address] [place] [address] Urobilinogen Qn (U) 0.2 {Keyla'U}/dL Normal 0.0-1.0 [facility] Comment on above: Performed By: #### 2 492254, 7164397, 8985501, 3254043, 3201214, 69904535 #### [facility] [address] [place] [address] WBC Auto Ql (U) 2+ Abnormal Negative [facility] Comment on above: Performed By: #### 2 582208, 1951645, 4093033, 0007791, 6254695, [id number] #### [facility] [address] [place] [address] URINALYSISOrdered By: Rakel Garrison on 03-10-2023 Bacteria LM Ql (Urine sed) 1+ /HPF Invalid Interpretation Code Trace/HPF [facility] SS Bilirubin Ql (U) Negative (03/10/23 7:36 PM) Normal Negative [facility] Clarity (U) Slightly Cloudy *ABN* (03/10/23 7:36 PM) Invalid Interpretation Code Clear [facility] SS Color (U) Yellow (03/10/23 7:36 PM) Normal Yellow [facility] Crystals LM Ql (Urine sed) Present (03/10/23 7:36 PM) Normal [facility] SS Epithelial cells.squamous LM.HPF (Urine sed) [#/Area] 5-8 /HPF Normal 0-2/HPF [facility] Glucose Test strip (U) [Mass/Vol] Negative (03/10/23 7:36 PM) Normal Negative [facility] SS Hemoglobin Ql (U) Negative (03/10/23 7:36 PM) Normal Negative [facility] SS Ketones (U) [Mass/Vol] Negative (03/10/23 7:36 PM) Normal Negative [facility] Auto SS [place].plasma/Lithi um.RBC (Bld) [Mass ratio] 4-20 /HPF Normal 0-3/HPF [facility] Mucus Ql (Urine sed) Trace (03/10/23 7:36 PM) Normal [facility] SS Nitrite Ql (U) Negative (03/10/23 7:36 PM) Normal Negative [facility] Auto SS pH (U) 6.0 *NA* (03/10/23 7:36 PM) Invalid Interpretation Code 5.0 - 9.0 [facility] Auto SS Protein (U) [Mass/Vol] Negative (03/10/23 7:36 PM) Normal Negative [facility] Auto SS Specific gravity (U) [Rel density] 1.020 *NA* (03/10/23 7:36 PM) Invalid Interpretation Code 1.005 - 1.030 [facility] Auto SS UA Spec Desc Clean Catch (03/10/23 7:36 PM) Normal [facility] Auto SS Urobilinogen Qn (U) 0.3681484 {Keyla'U}/dL Normal 0.0 - 1.0 EU/dL [facility] Auto SS WBC Auto Ql (U) 2+ *ABN* (03/10/23 7:36 PM) Invalid Interpretation Code Negative [facility] SS WBC LM.HPF (Urine sed) [#/Area] 6-15 /HPF Invalid Interpretation Code 0-5/HPF [facility] Auto SS eGFRon 03-10-2023 GFR/1.73 sq M.predicted among non-blacks MDRD (S/P/Bld) [Vol rate/Area] 126 mL/min/1.73 m2 Normal >=59 [facility] Comment on above: Order Comment: Order Added by Discern Expert. Result Comment: Manager Client Service sammie kidney disease could be indicated at eGFR's of less than 60 mL/min/1.73m2. Kidney failure is indicated at less than 15 mL/min/1.73m2. Performed By: #### 2 888137, 2545329, 6561058, 7729434, 7270308, [id number] #### [facility] [address] [place] [address] CHEMISTRYOrdered By: SYSTEM SYSTEM on 01-25-2023 Albumin [Mass/Vol] 3.7 g/dL Normal 3.3 - 5.0 gm/dL [facility] Albumin/Globulin [Mass ratio] 1.0 {ratio} Low 1.1 - 2.2 [facility] ALP [Catalytic activity/Vol] 60 [iU]/d Normal 21 - 98 Int._Unit/L [facility] ALT No additional P-5'-P [Catalytic activity/Vol] 37 [iU]/d Normal 6 - 46 Int._Unit/L [facility] Anion gap [Moles/Vol] 13 mmol/L Normal 6 - 16 mEq/L [facility] AST [Catalytic activity/Vol] 22 [iU]/d Normal 5 - 43 Int._Unit/L [facility] Bilirubin [Mass/Vol] 0.6 mg/dL Normal 0.0 - 1 .1 mg/dL [facility] Bilirubin.direct [Mass/Vol] mg/dL Normal 0.1 - 0.4 mg/dL [facility] Bilirubin.indirect [Mass or moles/Vol] Unable to Calculate mg/dL Invalid Interpretation Code 0.1 - 0.9 mg/dL [facility] Calcium [Mass/Vol] 8.4 mg/dL Low 8.9 - 11. 1 mg/dL [facility] Chloride [Moles/Vol] 105 mmol/L Normal 101 - 1 11 mmol/L [facility] CO2 [Moles/Vol] 20 mmol/L Low 21 - 31 mmol/L [facility] Creatinine [Mass/Vol] 1.1 mg/dL Normal 0.5 - 1.3 mg/dL [facility] GFR/1.73 sq M.predicted among non-blacks MDRD (S/P/Bld) [Vol rate/Area] 71 mL/min/1.73 m2 Normal >=59mL/min/1.7 3 m2 [facility] Chem S Globulin (S) [Mass/Vol] 3.9 g/dL Normal 1.4 - 4.0 gm/dL [facility] Glucose [Mass/Vol] 110 mg/dL Normal 55 - 199 mg/dL [facility] Lipase [Catalytic activity/Vol] 70 U/L High 13 - 58 unit/L [facility] Potassium [Moles/Vol] 3.5 mmol/L Normal 3.5 - 5.3 mmol/L [facility] Protein [Mass/Vol] 7.6 g/dL Normal 6.0 - 7.8 gm/dL [facility] Sodium [Moles/Vol] 134 mmol/L Low 135 - 145 mmol/L [facility] Urea nitrogen [Mass/Vol] 16 mg/dL Normal 5 - 21 mg/dL [facility] Urea nitrogen/Creatinine [Mass ratio] 14 mg/mg Normal 10 - 20 [facility] HEMATOLOGYOrdered By: SYSTEM SYSTEM on 01-25-2023 Basophils/100 WBC (Bld) 0.3 % Normal 0.0 - 2.0 % [facility] Basophils/Leukocytes Auto (Bld) [Pure # fraction] 0.0 E9/L Normal 0.0 - 0.2 E9/L [facility] Eosinophils/100 WBC (Bld) 1.9 % Normal 0.0 - 8.0 % [facility] Eosinophils/Leukocyt es Auto (Bld) [Pure # fraction] 0.3 E9/L Normal 0.0 - 0.5 E9/L [facility] Lymphocytes/100 WBC (Bld) 11.5 % Low 14.0 - 50.0 % [facility] Lymphocytes/Leukocyt es Auto (Bld) [Pure # fraction] 1.6 E9/L Normal 1.0 - 4.0 E9/L [facility] Monocytes/100 WBC (Bld) 7.8 % Normal 4.0 - 14.0 % [facility] Monocytes/Leukocytes Auto (Bld) [Pure # fraction] 1.1 E9/L High 0.2 - 1.0 E9/L [facility] Neutrophils/100 WBC (Bld) 78.5 % High 36.0 - 75.0 % [facility] Neutrophils/Leukocyt es Auto (Bld) [Pure # fraction] 11.1 E9/L High 2.0 - 7.5 E9/L [facility] HEMATOLOGYOrdered By: Acosta Aguirre on 01-25-2023 Erythrocyte distribution width (RBC) [Ratio] 15.3 % High 10.9 - 14.2 % [facility] Hematocrit (Bld) [Volume fraction] 40.2 % Normal 34.0 - 46.0 % [facility] Hemoglobin (Bld) [Mass/Vol] 12.5 g/dL Normal 12.0 - 16.0 gm/dL [facility] MCH (RBC) [Entitic mass] 25.2 pg Low 27.0 - 34.0 pg [facility] MCHC (RBC) [Mass/Vol] 31.2 g/dL Low 31.4 - 36.0 gm/dL [facility] MCV (RBC) [Entitic vol] 80.6 fL Normal 80.0 - 100.0 fL [facility] Platelet mean volume (Bld) [Entitic vol] 8.2 fL Normal 6.4 - 10.8 fL [facility] Platelets (Bld) [#/Vol] 401.0 E9/L Normal 150.0 - 500.0 E9/L [facility] RBC (Bld) [#/Vol] 5.0 E12/L Normal 4.3 - 5.9 E12/L [facility] WBC corrected for nucl RBC Auto (Bld) [#/Vol] 14.1 E9/L High 4.0 - 11.0 E9/L [facility] SEROLOGYOrdered By: Archie Thapa on 01-25-2023 Beta hCG Ql Negative (01/25/23 9:28 PM) Normal [facility] URINALYSISOrdered By: Abelino Thapa on 01-25-2023 Bacteria LM Ql (Urine sed) 1+ /HPF Invalid Interpretation Code Trace/HPF [facility] Bilirubin Ql (U) Negative (01/25/23 9:28 PM) Normal Negative [facility] Clarity (U) Clear (01/25/23 9:28 PM) Normal Clear [facility] Color (U) Yellow (01/25/23 9:28 PM) Normal Yellow [facility] Epithelial cells.squamous LM.HPF (Urine sed) [#/Area] /[HPF] Normal 0-2/HPF [facility] Glucose Test strip (U) [Mass/Vol] Negative (01/25/23 9:28 PM) Normal Negative [facility] Hemoglobin Ql (U) Trace *ABN* (01/25/23 9:28 PM) Invalid Interpretation Code Negative [facility] Ketones (U) [Mass/Vol] Negative (01/25/23 9:28 PM) Normal Negative [facility] Auto SS [place].plasma/Lithi um.RBC (Bld) [Mass ratio] 0-3 /HPF Normal 0-3/HPF [facility] Nitrite Ql (U) Negative (01/25/23 9:28 PM) Normal Negative [facility] pH (U) 6.0 *NA* (01/25/23 9:28 PM) Invalid Interpretation Code 5.0 - 9.0 [facility] SS Protein (U) [Mass/Vol] Negative (01/25/23 9:28 PM) Normal Negative [facility] Specific gravity (U) [Rel density] >=1.030 *NA* (01/25/23 9:28 PM) Invalid Interpretation Code 1.005 - 1.030 [facility] Auto SS UA Spec Desc Clean Catch (01/25/23 9:28 PM) Normal [facility] Urobilinogen Qn (U) 0.6830573 {Keyla'U}/dL Normal 0.0 - 1.0 EU/dL [facility] Auto SS WBC Auto Ql (U) Trace *ABN* (01/25/23 9:28 PM) Invalid Interpretation Code Negative [facility] Auto SS WBC LM.HPF (Urine sed) [#/Area] 0-5 /HPF Normal 0-5/HPF [facility] CHEMISTRYOrdered By: SYSTEM SYSTEM on 01-13-2023 Albumin [Mass/Vol] 3.4 g/dL Normal 3.3 - 5.0 gm/dL [facility] Albumin/Globulin [Mass ratio] 0.8 {ratio} Low 1.1 - 2.2 [facility] ALP [Catalytic activity/Vol] 54 [iU]/d Normal 21 - 98 Int._Unit/L [facility] ALT No additional P-5'-P [Catalytic activity/Vol] 17 [iU]/d Normal 6 - 46 Int._Unit/L [facility] Anion gap [Moles/Vol] 13 mmol/L Normal 6 - 16 mEq/L [facility] AST [Catalytic activity/Vol] 16 [iU]/d Normal 5 - 43 Int._Unit/L [facility] Bilirubin [Mass/Vol] 0.5 mg/dL Normal 0.0 - 1 .1 mg/dL [facility] Bilirubin.direct [Mass/Vol] mg/dL Normal 0.1 - 0.4 mg/dL [facility] Bilirubin.indirect [Mass or moles/Vol] Unable to Calculate mg/dL Invalid Interpretation Code 0.1 - 0.9 mg/dL [facility] Calcium [Mass/Vol] 8.8 mg/dL Low 8.9 - 11. 1 mg/dL [facility] Chloride [Moles/Vol] 102 mmol/L Normal 101 - 1 11 mmol/L [facility] CO2 [Moles/Vol] 25 mmol/L Normal 21 - 31 mmol/L [facility] Creatinine [Mass/Vol] 0.7 mg/dL Normal 0.5 - 1.3 mg/dL [facility] GFR/1.73 sq M.predicted among blacks MDRD (S/P/Bld) [Vol rate/Area] mL/min/1.73 m2 Normal >=59mL/min/1.7 3 m2 [facility] Chem S GFR/1.73 sq M.predicted among non-blacks MDRD (S/P/Bld) [Vol rate/Area] mL/min/1.73 m2 Normal >=59mL/min/1.7 3 m2 [facility] Chem S Globulin (S) [Mass/Vol] 4.2 g/dL High 1.4 - 4.0 gm/dL [facility] Glucose [Mass/Vol] 90 mg/dL Normal 55 - 199 mg/dL [facility] Lipase [Catalytic activity/Vol] 41 U/L Normal 13 - 58 unit/L [facility] Potassium [Moles/Vol] 3.7 mmol/L Normal 3.5 - 5.3 mmol/L [facility] Protein [Mass/Vol] 7.6 g/dL Normal 6.0 - 7.8 gm/dL [facility] Sodium [Moles/Vol] 136 mmol/L Normal 135 - 145 mmol/L [facility] Urea nitrogen [Mass/Vol] 7 mg/dL Normal 5 - 21 mg/dL [facility] Urea nitrogen/Creatinine [Mass ratio] 10 mg/mg Normal 10 - 20 [facility] COAGULATIONOrdered By: Makayla Flynn on 01-13-2023 aPTT Coag (PPP) [Time] 29.6 s Normal 25.1 - 36.5 second(s) [facility] Auto [facility]ag INR Coag (PPP) [Relative time] 1.1 {INR} Invalid Interpretation Code [facility] Coag PT Coag (PPP) [Time] 12.0 s Normal 9.4 - 1 2.5 second(s) [facility] HEMATOLOGYOrdered By: SYSTEM SYSTEM on 01-13-2023 Basophils/100 WBC (Bld) 0.2 % Normal 0.0 - 2.0 % [facility] Basophils/Leukocytes Auto (Bld) [Pure # fraction] 0.0 E9/L Normal 0.0 - 0.2 E9/L [facility] Eosinophils/100 WBC (Bld) 3.3 % Normal 0.0 - 8.0 % [facility] Eosinophils/Leukocyt es Auto (Bld) [Pure # fraction] 0.3 E9/L Normal 0.0 - 0.5 E9/L [facility] Lymphocytes/100 WBC (Bld) 12.4 % Low 14.0 - 50.0 % [facility] Lymphocytes/Leukocyt es Auto (Bld) [Pure # fraction] 1.0 E9/L Normal 1.0 - 4.0 E9/L [facility] Monocytes/100 WBC (Bld) 6.6 % Normal 4.0 - 14.0 % [facility] Monocytes/Leukocytes Auto (Bld) [Pure # fraction] 0.5 E9/L Normal 0.2 - 1.0 E9/L [facility] Neutrophils/100 WBC (Bld) 77.5 % High 36.0 - 75.0 % [facility] Neutrophils/Leukocyt es Auto (Bld) [Pure # fraction] 6.1 E9/L Normal 2.0 - 7.5 E9/L [facility] HEMATOLOGYOrdered By: Martha Schultz on 01-13-2023 Erythrocyte distribution width (RBC) [Ratio] 14.6 % High 10.9 - 14.2 % [facility] Hematocrit (Bld) [Volume fraction] 35.0 % Normal 34.0 - 46.0 % [facility] Hemoglobin (Bld) [Mass/Vol] 11.3 g/dL Low 12.0 - 16.0 gm/dL [facility] MCH (RBC) [Entitic mass] 25.8 pg Low 27.0 - 34.0 pg [facility] MCHC (RBC) [Mass/Vol] 32.2 g/dL Normal 31.4 - 36.0 gm/dL [facility] MCV (RBC) [Entitic vol] 80.0 fL Normal 80.0 - 100.0 fL [facility] Platelet mean volume (Bld) [Entitic vol] 8.2 fL Normal 6.4 - 10.8 fL [facility] Platelets (Bld) [#/Vol] 310.0 E9/L Normal 150.0 - 500.0 E9/L [facility] RBC (Bld) [#/Vol] 4.4 E12/L Normal 4.3 - 5.9 E12/L [facility] WBC corrected for nucl RBC Auto (Bld) [#/Vol] 7.8 E9/L Normal 4.0 - 11.0 E9/L [facility] SEROLOGYOrdered By: Makayla bro on 01-13-2023 HCG.beta subunit (U) [Moles/Vol] Negative Normal [facility] URINALYSISOrdered By: Makayla Flynn on 01-13-2023 Bacteria LM Ql (Urine sed) 1+ /HPF Invalid Interpretation Code Trace/HPF [facility] Bilirubin Ql (U) Negative (01/13/23 3:23 PM) Normal Negative [facility] Clarity (U) Clear (01/13/23 3:23 PM) Normal Clear [facility] Color (U) Yellow (01/13/23 3:23 PM) Normal Yellow [facility] Epithelial cells.squamous LM.HPF (Urine sed) [#/Area] /[HPF] Normal 0-2/HPF [facility] Glucose Test strip (U) [Mass/Vol] Negative (01/13/23 3:23 PM) Normal Negative [facility] Hemoglobin Ql (U) Negative (01/13/23 3:23 PM) Normal Negative [facility] Ketones (U) [Mass/Vol] Negative (01/13/23 3:23 PM) Normal Negative [facility] Auto SS [place].plasma/Lithi um.RBC (Bld) [Mass ratio] 0-3 /HPF Normal 0-3/HPF [facility] Nitrite Ql (U) Negative (01/13/23 3:23 PM) Normal Negative [facility] pH (U) 6.0 *NA* (01/13/23 3:23 PM) Invalid Interpretation Code 5.0 - 9.0 [facility] Protein (U) [Mass/Vol] Negative (01/13/23 3:23 PM) Normal Negative [facility] SS Specific gravity (U) [Rel density] 1.025 *NA* (01/13/23 3:23 PM) Invalid Interpretation Code 1.005 - 1.030 [facility] SS UA Spec Desc Clean Catch (01/13/23 3:23 PM) Normal [facility] Urobilinogen Qn (U) 0.9525282 {Keyla'U}/dL Normal 0.0 - 1.0 EU/dL [facility] WBC Auto Ql (U) 1+ *ABN* (01/13/23 3:23 PM) Invalid Interpretation Code Negative [facility] SS WBC LM.HPF (Urine sed) [#/Area] 6-15 /HPF Invalid Interpretation Code 0-5/HPF [facility] CHEMISTRYOrdered By: SYSTEM SYSTEM on 01-09-2023 Albumin [Mass/Vol] 3.9 g/dL Normal 3.3 - 5.0 gm/dL [facility] Albumin/Globulin [Mass ratio] 0.9 {ratio} Low 1.1 - 2.2 [facility] ALP [Catalytic activity/Vol] 60 [iU]/d Normal 21 - 98 Int._Unit/L [facility] ALT No additional P-5'-P [Catalytic activity/Vol] 21 [iU]/d Normal 6 - 46 Int._Unit/L [facility] Anion gap [Moles/Vol] 14 mmol/L Normal 6 - 16 mEq/L [facility] AST [Catalytic activity/Vol] 22 [iU]/d Normal 5 - 43 Int._Unit/L [facility] Bilirubin [Mass/Vol] 0.6 mg/dL Normal 0.0 - 1 .1 mg/dL [facility] Bilirubin.direct [Mass/Vol] 0.2 mg/dL Normal 0.1 - 0.4 mg/dL [facility] Bilirubin.indirect [Mass or moles/Vol] 0.4 mg/dL Normal 0.1 - 0.9 mg/dL [facility] Calcium [Mass/Vol] 9.1 mg/dL Normal 8.9 - 11. 1 mg/dL [facility] Chloride [Moles/Vol] 99 mmol/L Low 101 - 1 11 mmol/L [facility] CO2 [Moles/Vol] 26 mmol/L Normal 21 - 31 mmol/L [facility] Creatinine [Mass/Vol] 0.7 mg/dL Normal 0.5 - 1.3 mg/dL [facility] GFR/1.73 sq M.predicted among blacks MDRD (S/P/Bld) [Vol rate/Area] mL/min/1.73 m2 Normal >=59mL/min/1.7 3 m2 [facility] S GFR/1.73 sq M.predicted among non-blacks MDRD (S/P/Bld) [Vol rate/Area] mL/min/1.73 m2 Normal >=59mL/min/1.7 3 m2 [facility] Chem S Globulin (S) [Mass/Vol] 4.3 g/dL High 1.4 - 4.0 gm/dL [facility] Glucose [Mass/Vol] 91 mg/dL Normal 55 - 199 mg/dL [facility] Lipase [Catalytic activity/Vol] 39 U/L Normal 13 - 58 unit/L [facility] Potassium [Moles/Vol] 3.5 mmol/L Normal 3.5 - 5.3 mmol/L [facility] Protein [Mass/Vol] 8.2 g/dL High 6.0 - 7.8 gm/dL [facility] Sodium [Moles/Vol] 135 mmol/L Normal 135 - 145 mmol/L [facility] Urea nitrogen [Mass/Vol] 10 mg/dL Normal 5 - 21 mg/dL [facility] Urea nitrogen/Creatinine [Mass ratio] 14 mg/mg Normal 10 - 20 [facility] HEMATOLOGYOrdered By: SYSTEM SYSTEM on 01-09-2023 Basophils/100 WBC (Bld) 0.3 % Normal 0.0 - 2.0 % [facility] Basophils/Leukocytes Auto (Bld) [Pure # fraction] 0.0 E9/L Normal 0.0 - 0.2 E9/L [facility] Eosinophils/100 WBC (Bld) 3.1 % Normal 0.0 - 8.0 % [facility] Eosinophils/Leukocyt es Auto (Bld) [Pure # fraction] 0.3 E9/L Normal 0.0 - 0.5 E9/L [facility] Lymphocytes/100 WBC (Bld) 13.7 % Low 14.0 - 50.0 % [facility] Lymphocytes/Leukocyt es Auto (Bld) [Pure # fraction] 1.2 E9/L Normal 1.0 - 4.0 E9/L [facility] Monocytes/100 WBC (Bld) 8.9 % Normal 4.0 - 14.0 % [facility] Monocytes/Leukocytes Auto (Bld) [Pure # fraction] 0.8 E9/L Normal 0.2 - 1.0 E9/L [facility] Neutrophils/100 WBC (Bld) 74.0 % Normal 36.0 - 75.0 % [facility] Neutrophils/Leukocyt es Auto (Bld) [Pure # fraction] 6.5 E9/L Normal 2.0 - 7.5 E9/L [facility] HEMATOLOGYOrdered By: Abelino Thapa on 01-09-2023 Erythrocyte distribution width (RBC) [Ratio] 14.8 % High 10.9 - 14.2 % [facility] Hematocrit (Bld) [Volume fraction] 37.6 % Normal 34.0 - 46.0 % [facility] Hemoglobin (Bld) [Mass/Vol] 11.8 g/dL Low 12.0 - 16.0 gm/dL [facility] MCH (RBC) [Entitic mass] 25.5 pg Low 27.0 - 34.0 pg [facility] MCHC (RBC) [Mass/Vol] 31.4 g/dL Normal 31.4 - 36.0 gm/dL [facility] MCV (RBC) [Entitic vol] 81.0 fL Normal 80.0 - 100.0 fL [facility] Platelet mean volume (Bld) [Entitic vol] 8.4 fL Normal 6.4 - 10.8 fL [facility] Platelets (Bld) [#/Vol] 355.0 E9/L Normal 150.0 - 500.0 E9/L [facility] RBC (Bld) [#/Vol] 4.6 E12/L Normal 4.3 - 5.9 E12/L [facility] WBC corrected for nucl RBC Auto (Bld) [#/Vol] 8.7 E9/L Normal 4.0 - 11.0 E9/L [facility] SEROLOGYOrdered By: Angelika Hernandez on 01-09-2023 Beta hCG Ql Negative (01/09/23 1:22 PM) Normal [facility] Man [facility]ero URINALYSISOrdered By: Chaz Manley on 01-09-2023 Bacteria LM Ql (Urine sed) Trace /HPF Normal Trace/HPF [facility] Bilirubin Ql (U) Negative (01/09/23 3:03 PM) Normal Negative [facility] Clarity (U) Slightly Cloudy *ABN* (01/09/23 3:03 PM) Invalid Interpretation Code Clear [facility] Color (U) Yellow (01/09/23 3:03 PM) Normal Yellow [facility] Auto SS Epithelial cells.squamous LM.HPF (Urine sed) [#/Area] 5-8 /HPF Normal 0-2/HPF [facility] Glucose Test strip (U) [Mass/Vol] Negative (01/09/23 3:03 PM) Normal Negative [facility] SS Hemoglobin Ql (U) Negative (01/09/23 3:03 PM) Normal Negative [facility] SS Ketones (U) [Mass/Vol] Negative (01/09/23 3:03 PM) Normal Negative [facility] Auto SS [place].plasma/Lithi um.RBC (Bld) [Mass ratio] 0-3 /HPF Normal 0-3/HPF [facility] Nitrite Ql (U) Negative (01/09/23 3:03 PM) Normal Negative [facility] SS pH (U) 6.5 *NA* (01/09/23 3:03 PM) Invalid Interpretation Code 5.0 - 9.0 [facility] SS Protein (U) [Mass/Vol] Negative (01/09/23 3:03 PM) Normal Negative [facility] Auto SS Specific gravity (U) [Rel density] <=1.005 *NA* (01/09/23 3:03 PM) Invalid Interpretation Code 1.005 - 1.030 [facility] Auto SS UA Spec Desc Clean Catch (01/09/23 3:03 PM) Normal [facility] Auto SS Urobilinogen Qn (U) 0.0313044 {Keyla'U}/dL Normal 0.0 - 1.0 EU/dL [facility] UA Auto SS WBC Auto Ql (U) Trace *ABN* (01/09/23 3:03 PM) Invalid Interpretation Code Negative [facility] UA Auto SS WBC LM.HPF (Urine sed) [#/Area] 0-5 /HPF Normal 0-5/HPF [facility] UA Auto SS CBC with Auto Differentialon 12-24-2022 [facility] # 0.20 [facility] Absolute Lymph # 0.70 Low [facility] Absolute [place] # 0.40 [facility] Basophils (Bld) [#/Vol] 0.00 10*3/uL [facility] Basophils/100 WBC (Bld) 0 % 0 - 2 % [facility] Differential Type YES [facility] Eosinophils/100 WBC (Bld) 2 % 0 - 5 % [facility] Hematocrit (Bld) [Volume fraction] 36.2 % 36 - 46 % [facility] Hemoglobin (Bld) [Mass/Vol] 11.9 g/dL Low 12.0 - 16.0 g/dL [facility] Interpretation and review of laboratory results Abnormal [facility] Lymphocytes/100 WBC (Bld) 9 % Low 15 - 40 % [facility] MCH (RBC) [Entitic mass] 26.5 pg 26 - 34 pg [facility] MCHC (RBC) [Mass/Vol] 32.9 g/dL 31 - 37 g/dL [facility] MCV (RBC) [Entitic vol] 80.6 fL 80 - 100 fL [facility] Monocytes/100 WBC (Bld) 5 % 4 - 8 % [facility] Platelet distribution width (Bld) [Ratio] 15.3 % High 12.1 - 15.2 % [facility] Platelets (Bld) [#/Vol] 339 10*3/uL [facility] RBC (Bld) [#/Vol] 4.49 10*6/uL 4.0 - 5.2 m/uL [facility] Segmented neutrophils/100 WBC (Bld) 84 % High 47 - 75 % [facility] Segs Absolute 6.50 [facility] WBC (Bld) [#/Vol] 7.7 10*3/uL [facility] CBC with Diffon 12-24-2022 Abs. Basophil 0.00 k/uL Normal 0.0-0.2 [facility] Comment on above: Performed By: #### C P, CDP, LACTIC, HCG #### [facility] [address] [place], [place] [id number] [employer]: Cirilo Casillas MD Abs.Neutrophil (Seg) 6.50 k/uL Normal 2.5-7.0 [facility] Comment on above: Performed By: #### C P, CDP, LACTIC, HCG #### [facility] [address] [place], [place] [id number] [employer]: Cirilo Casillas MD Auto Diff Performed YES Normal [facility] Comment on above: Performed By: #### C P, CDP, LACTIC, HCG #### [facility] [address] [place], [place] [id number] [employer]istrar [employer]: Cirilo Casillas MD Basophils/100 WBC (Bld) 0 % Normal 0-2 [facility] Comment on above: Performed By: #### C P, CDP, LACTIC, HCG #### [facility] [address] [place], [place] [id number] [employer]: Cirilo Casillas MD Eosinophils (Bld) [#/Vol] 0.20 10*3/uL Normal 0.0-0.4 [facility] Comment on above: Performed By: #### C P, CDP, LACTIC, HCG #### [facility] [address] [place] [address] [employer]: Cirilo Casillas MD Eosinophils/100 WBC (Bld) 2 % Normal 0-5 [facility] Comment on above: Performed By: #### C P, CDP, LACTIC, HCG #### [facility] [address] [place] [id number] [employer]: Cirilo Casillas MD Erythrocyte distribution width (RBC) [Ratio] 15.3 % High 12.1-15.2 [facility] Comment on above: Performed By: #### C P, CDP, LACTIC, HCG #### [facility] [address] [place] [id number] [employer]: Cirilo Casillas MD Hematocrit (Bld) [Volume fraction] 36.2 % Normal 36-46 [facility] Comment on above: Performed By: #### C P, CDP, LACTIC, HCG #### [facility] [address] [place] [address] [employer]: Cirilo Casillas MD Hemoglobin (Bld) [Mass/Vol] 11.9 g/dL Low 12.0-16.0 [facility] Comment on above: Performed By: #### C P, CDP, LACTIC, HCG #### [facility] [address] [place] [id number] [employer]: Cirilo Casillas MD Lymphocytes (Bld) [#/Vol] 0.70 10*3/uL Low 1.0-4.8 [facility] Comment on above: Performed By: #### C P, CDP, LACTIC, HCG #### [facility] [address] [place] [address] [employer]: Cirilo Casillas MD Lymphocytes/100 WBC (Bld) 9 % Low 15-40 [facility] Comment on above: Performed By: #### C P, CDP, LACTIC, HCG #### [facility] [address] [place] [address] [employer]: Cirilo Casillas MD MCH (RBC) [Entitic mass] 26.5 pg Normal 26-34 [facility] Comment on above: Performed By: #### C P, CDP, LACTIC, HCG #### [facility] [address] [place] [address] [phone] [employer]: Cirilo Casillas MD MCHC (RBC) [Mass/Vol] 32.9 g/dL Normal 31-37 [facility] Comment on above: Performed By: #### C P, CDP, LACTIC, HCG #### [facility] [address] [place], [place] [phone] [employer]: Cirilo Casillas MD MCV (RBC) [Entitic vol] 80.6 fL Normal 80-100 [facility] Comment on above: Performed By: #### C P, CDP, LACTIC, HCG #### [facility] [address] [place] [address] [employer]: Cirilo Casillas MD Monocytes (Bld) [#/Vol] 0.40 10*3/uL Normal 0.0-1.0 [facility] Comment on above: Performed By: #### C P, CDP, LACTIC, HCG #### [facility] [address] [place] [address] [phone] [employer]: Cirilo Casillas MD Monocytes/100 WBC (Bld) 5 % Normal 4-8 [facility] Comment on above: Performed By: #### C P, CDP, LACTIC, HCG #### [facility] [address] [place] [address] [phone] [employer]: Cirilo Casillas MD Neutrophil (Seg) 84 % High 47-75 [facility] Comment on above: Performed By: #### C P, CDP, LACTIC, HCG #### [facility] [address] [place] [address] [phone] [employer]: Cirilo Casillas MD Platelets (Bld) [#/Vol] 339 10*3/uL Normal 140-450 [facility] Comment on above: Performed By: #### C P, CDP, LACTIC, HCG #### [facility] [address] [place] [address] [employer]: Cirilo Casillas MD RBC (Bld) [#/Vol] 4.49 10*6/uL Normal 4.0-5.2 [facility] Comment on above: Performed By: #### C P, CDP, LACTIC, HCG #### [facility] [address] [place] [address] [employer]: Cirilo Casillas MD WBC (Bld) [#/Vol] 7.7 10*3/uL Normal 3.5-11.0 [facility] Comment on above: Performed By: #### C P, CDP, LACTIC, HCG #### [facility] [address] [place] [address] [employer]: Cirilo Casillas MD [facility] Albumin [Mass/Vol] 4 g/dL 3.5 - 5.2 g/dL [facility] ALP [Catalytic activity/Vol] 65 U/L 35 - 104 U/L [facility] ALT [Catalytic activity/Vol] 6 U/L 5 - 33 U/L [facility] Anion gap [Moles/Vol] 12 mmol/L 9 - 17 mmol/L [facility] AST [Catalytic activity/Vol] 13 U/L NINF - 32 U/L [facility] Bilirubin [Mass/Vol] 0.3 mg/dL 0.3 - 1 .2 mg/dL [facility] Calcium [Mass/Vol] 9.1 mg/dL 8.6 - 10. 4 mg/dL [facility] Chloride [Moles/Vol] 105 mmol/L 98 - 10 7 mmol/L [facility] CO2 [Moles/Vol] 22 mmol/L 20 - 31 mmol/L [facility] Creatinine [Mass/Vol] 0.63 mg/dL 0.50 - 0.90 mg/dL [facility] GFR/1.73 sq M.predicted MDRD (S/P/Bld) [Vol rate/Area] - PINF [facility] Comment on above: These results are not intended for use in patients <18 years of age. eGFR results are calculated without a race factor using the 2020 CKD-EPI equation. Careful clinical correlation is recommended, particularly when comparing to results calculated using previous equations. The CKD-EPI equation is less accurate in patients with extremes of muscle mass, extra-renal metabolism of creatine, excessive creatine ingestion, or following therapy that affects renal tubular secretion. Glucose [Mass/Vol] 108 mg/dL High 70 - 99 mg/dL [facility] Interpretation and review of laboratory results Abnormal [facility] Potassium [Moles/Vol] 3.9 mmol/L 3.7 - 5.3 mmol/L [facility] IMN Protein [Mass/Vol] 7.7 g/dL 6.4 - 8.3 g/dL [facility] [employer] IMN Sodium [Moles/Vol] 139 mmol/L 135 - 144 mmol/L [facility] Urea nitrogen [Mass/Vol] 10 mg/dL 6 - 20 mg/dL [facility] Urea nitrogen/Creatinine (Bld) [Mass ratio] 16 9 - [address] [facility] [address] ABDOMEN PELVIS W IV CONTR Crescencio 12-24-2022 CT ABDOMEN PELVIS W IV CONTRAST EXAMINATION: CT ABDOMEN PELVIS W IV CONTRAST, 12/24/2022 5:27 PM EDT HISTORY: Abdominal pain. HISTORY Crohn's with ileostomy. COMPARISON: CT abdomen pelvis 01/07/2019. TECHNIQUE: CT scan of the abdomen and pelvis was performed with IV contrast. CT dose reduction technique was used, including Automated Exposure Control. FINDINGS: POSITIVES: None. NEGATIVES: No acute surgical change in the abdomen or pelvis. COINCIDENTAL: Right lower quadrant ostomy containing more intra-abdominal fat that it did previously. ROUTINE: Appendix not separately identified. Retroverted uterus. That normal ovaries. No hydronephrosis. Normal spleen, adrenal glands, pancreas, gallbladder and liver. No free air. IMPRESSION: Increased fat at the ostomy consistent with a parastomal hernia compared to 2019. No acute surgical changes. Interpreted by: Ozzy Guidry Jr., MD Signed by: Ozzy Guidry Jr., MD 12/24/22 Final result Normal [facility] CT ABDOMEN PELVIS W IV CONTR AST Additional Contrast? 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 No acute surgical changes. [facility] EXAMINATION: CT ABDOMEN PELVIS W IV CONTRAST, 12/24/2022 5:27 PM EDT HISTORY: Abdominal pain. HISTORY Crohn's with ileostomy. COMPARISON: CT abdomen pelvis 01/07/2019. TECHNIQUE: CT scan of the abdomen and pelvis was performed with IV contrast. CT dose reduction technique was used, including Automated Exposure Control. FINDINGS: POSITIVES: None. NEGATIVES: No acute surgical change in the abdomen or pelvis. COINCIDENTAL: Right lower quadrant ostomy containing more intra-abdominal fat that it did previously. ROUTINE: Appendix not separately identified. Retroverted uterus. That normal ovaries. No hydronephrosis. Normal spleen, adrenal glands, pancreas, gallbladder and liver. No free air. [facility] Ozzy Guidry Jr., MD - 12/24/2022 EXAMINATION: CT ABDOMEN PELVIS W IV CONTRAST, 12/24/2022 5:27 PM EDT HISTORY: Abdominal pain. HISTORY Crohn's with ileostomy. COMPARISON: CT abdomen pelvis 01/07/2019. TECHNIQUE: CT scan of the abdomen and pelvis was performed with IV contrast. CT dose reduction technique was used, including Automated Exposure Control. FINDINGS: POSITIVES: None. NEGATIVES: No acute surgical change in the abdomen or pelvis. COINCIDENTAL: Right lower quadrant ostomy containing more intra-abdominal fat that it did previously. ROUTINE: Appendix not separately identified. Retroverted uterus. That normal ovaries. No hydronephrosis. Normal spleen, adrenal glands, pancreas, gallbladder and liver. No free air. IMPRESSION: Increased fat at the ostomy consistent with a parastomal hernia compared to 2019. No acute surgical changes. [employer] Phone: Radiology Study observation (narrative) [employer] Phone: CT ABDOMEN PELVIS W IV CONTR AST Additional Contrast? NoneOrdered By: Ozzy Guidry on 12-24-2022 [employer] Phone: Comp Metabolic Profon 2022 Albumin [Mass/Vol] 4.0 g/dL Normal 3.5-5.2 [facility] Comment on above: Performed By: #### C P, CDP, LACTIC, HCG #### [facility] [address] [place] [address] [employer]: Cirilo Casillas MD Alkaline Phos 65 U/L Normal 35-104 [facility] Comment on above: Performed By: #### C P, CDP, LACTIC, HCG #### [facility] [address] [place] [address] [employer]: Cirilo Casillas MD ALT [Catalytic activity/Vol] 6 U/L Normal 5-33 [facility] Comment on above: Performed By: #### C P, CDP, LACTIC, HCG #### [facility] [address] [place] [address] [employer]: Cirilo Casillas MD Anion gap [Moles/Vol] 12 mmol/L Normal 9-17 [facility] Comment on above: Performed By: #### C P, CDP, LACTIC, HCG #### [facility] [address] [place] [address] [employer]: Cirilo Casillas MD AST [Catalytic activity/Vol] 13 U/L Normal <32 [facility] Comment on above: Performed By: #### C P, CDP, LACTIC, HCG #### [facility] [address] [place] [address] [employer]: Cirilo Casillas MD Bilirubin [Mass/Vol] 0.3 mg/dL Normal 0.3-1.2 [facility] Comment on above: Performed By: #### C P, CDP, LACTIC, HCG #### [facility] [address] [place] [address] [employer]: Cirilo Casillas MD BUN/CRE Ratio 16 Normal 9-20 [facility] Comment on above: Performed By: #### C P, CDP, LACTIC, HCG #### [facility] [address] [place] [address] [employer]: Cirilo Casillas MD Calcium [Mass/Vol] 9.1 mg/dL Normal 8.6-10.4 [facility] Comment on above: Performed By: #### C P, CDP, LACTIC, HCG #### [facility] [address] [place], [place] [phone] [employer]: Cirilo Casillas MD Chloride [Moles/Vol] 105 mmol/L Normal 98-107 [facility] Comment on above: Performed By: #### C P, CDP, LACTIC, HCG #### [facility] [address] [place] [address] [employer]: Cirilo Casillas MD CO2 [Moles/Vol] 22 mmol/L Normal 20-31 [facility] Comment on above: Performed By: #### C P, CDP, LACTIC, HCG #### [facility] [address] [place], [place] [phone] [employer]: Cirilo Casillas MD Creatinine [Mass/Vol] 0.63 mg/dL Normal 0.50-0.90 [facility] Comment on above: Performed By: #### C P, CDP, LACTIC, HCG #### [facility] [address] [place] [address] [employer]: Cirilo Casillas MD GFR/1.73 sq M.predicted among non-blacks MDRD (S/P/Bld) [Vol rate/Area] mL/min/{1.73_m2} Normal >60 [facility] Comment on above: Result Comment: These results are not intended for use in patients <18 years of age. eGFR results are calculated without a race factor using the 2020 CKD-EPI equation. Careful clinical correlation is recommended, particularly when comparing to results calculated using previous equations. The CKD-EPI equation is less accurate in patients with extremes of muscle mass, extra-renal metabolism of creatine, excessive creatine ingestion, or following therapy that affects renal tubular secretion. Performed By: #### C P, CDP, LACTIC, HCG #### [facility] [address] [place], [place] [phone] [employer]: Cirilo Casillas MD Glucose [Mass/Vol] 108 mg/dL High 70-99 [facility] Comment on above: Performed By: #### C P, CDP, LACTIC, HCG #### [facility] [address] [place] [address] [employer]: Cirilo Casillas MD Potassium [Moles/Vol] 3.9 mmol/L Normal 3.7-5.3 [facility] Comment on above: Performed By: #### C P, CDP, LACTIC, HCG #### [facility] [address] [place] [address] [employer]: Cirilo Casillas MD Protein [Mass/Vol] 7.7 g/dL Normal 6.4-8.3 [facility] Comment on above: Performed By: #### C P, CDP, LACTIC, HCG #### [facility] [address] [place], [place] [phone] [employer]: Cirilo Casillas MD Sodium [Moles/Vol] 139 mmol/L Normal 135-144 [facility] Comment on above: Performed By: #### C P, CDP, LACTIC, HCG #### [facility] [address] [place] [address] [employer]: Cirilo Casillas MD Urea nitrogen [Mass/Vol] 10 mg/dL Normal 6-20 [facility] Comment on above: Performed By: #### C P, CDP, LACTIC, HCG #### [facility] [address] [place], [place] [phone] [employer]: Cirilo Casillas MD HCG Qualitative, Serumon hCG Qual Negative NEGATIVE [facility] Comment on above: Specimens with hCG l evels near the threshold of the test (25 mIU/mL) may give a negative or indeterminate result. In such cases, another test should be performed with a new specimen in 48-72 hours. If early is suspected clinically in this setting, correlation with quantitative serum b-hCG level is suggested. [facility] has confirmed the use of plasma for this test. This has not been cleared or approved by the U.S. Food and Drug Administration. The FDA has determined that such clearance is not necessary. [facility] HCG Screen, Bloodon 12-25-19 23 HCG Screen, Blood Negative Normal NEG [facility] Comment on above: Result Comment: Spec imens with hCG levels near the threshold of the test (25 mIU/mL) may give a negative or indeterminate result. In such cases, another test should be performed with a new specimen in 48-72 hours. If early is suspected clinically in this setting, correlation with quantitative serum b-hCG level is suggested. [facility] has confirmed the use of plasma for this test. This has not been cleared or approved by the U.S. Food and Drug Administration. The FDA has determined that such clearance is not necessary. Performed By: #### C P, CDP, LACTIC, HCG #### [facility] [address] [place], [place] [phone] [employer]: Cirilo Casillas MD Lactic Acidon 12-24-2022 Lactate [Moles/Vol] 1.2 mmol/L Normal 0.5-2.2 [facility] Comment on above: Performed By: #### C P, CDP, LACTIC, HCG #### [facility] [address] [place] [address] [employer]: Cirilo Casillas MD Lactate (P mesha) [Moles/Vol] 1.2 mmol/L 0.5 - 2.2 mmol/L [facility] Microscopic Urinalysison - [facility] Bacteria, UA 2+ Abnormal None [facility] Epithelial Cells UA 10 TO 20 /HPF [facility] Interpretation and review of laboratory results Abnormal [facility] RBC clumps Auto (Urine sed) [#/Area] 5 TO 10 [facility] WBC, UA 5 TO 10 0 /HPF [facility] Urinalysison 12-24-2022 Bilirubin Urine Negative NEGATIVE [facility] Color, UA Yellow Yellow [facility] Glucose Auto test strip (U) [Mass/Vol] Negative NEGATIVE [facility] Interpretation and review of laboratory results Abnormal [facility] Ketones (U) [Mass/Vol] Negative NEGATIVE [facility] Leukocyte esterase Auto test strip Ql (U) 3+ Abnormal NEGATIVE [facility] Nitrite Auto test strip Ql (U) Negative NEGATIVE [facility] Protein (U) [Mass/Vol] 6.0 mg/dL 5.0 - 8.0 [facility] Protein (U) [Mass/Vol] Negative NEGATIVE [facility] Specific [place], UA 1.015 1.005 - 1.030 B ON [facility] Turbidity UA Clear Clear [facility] Urinalysis Comments [facility] Urine Hgb TRACE Abnormal NEGATIVE [facility] Urobilinogen, Urine Normal Normal [facility] Urinalysis, Routineon 2022 Bilirubin, SemiQt,Ur Negative Normal NEG [facility] Comment on above: Performed By: #### U ADNREAO, UA #### [facility] [address] [place] [address] [employer]: Cirilo Casillas MD Blood, Urine TRACE Abnormal NEG [facility] Comment on above: Performed By: #### U ANDREAO, UA #### [facility] [address] [place] [phone] [employer]: Cirilo Casillas MD Clarity (U) Clear Normal CLEAR [facility] Comment on above: Performed By: #### U MICAO, UA #### [facility] [address] [place] [address] [employer]: Cirilo Casillas MD Color (U) Yellow Normal YEL [facility] Comment on above: Performed By: #### U MICAO, UA #### [facility] [address] [place], [place] [phone] [employer]: Cirilo Casillas MD Comment Normal [facility] Comment on above: Performed By: #### U MICAO, UA #### [facility] [address] [place], [place] [phone] [employer]: Cirilo Casillas MD Glucose Ql (U) Negative Normal NEG [facility] Comment on above: Performed By: #### U MICAO, UA #### [facility] [address] [place], [place] [phone] [employer]: Cirilo Casillas MD Ketones Ql (U) Negative Normal NEG [facility] Comment on above: Performed By: #### U MICAO, UA #### [facility] [address] [place], [place] [phone] [employer]: Cirilo Casillas MD Leukocyte esterase Test strip Ql (U) 3+ Abnormal NEG [facility] Comment on above: Performed By: #### U MICAO, UA #### [facility] [address] [place] [address] [employer]: Cirilo Casillas MD Nitrite,Ur Negative Normal NEG [facility] Comment on above: Performed By: #### U MICAO, UA #### [facility] [address] [place], [place] [phone] [employer]: Cirilo Casillas MD PH,Ur 6.0 Normal 5.0-8.0 [facility] Comment on above: Performed By: #### U MICAO, UA #### [facility] [address] [place] [address] [employer]: Cirilo Casillas MD Protein Ql (U) Negative Normal NEG [facility] Comment on above: Performed By: #### U MICAO, UA #### [facility] [address] [place], [place] [phone] [employer]: Cirilo Casillas MD Spec. [place],Ur 1.015 Normal 1.005-1.030 [facility] Comment on above: Performed By: #### U MICAO, UA #### [facility] [address] [place] [address] [employer]: Cirilo Casillas MD Urobilinogen,Ur Normal Normal NORM [facility] Comment on above: Performed By: #### U MICAO, UA #### [facility] [address] [place] [address] [employer]: Cirilo Casillas MD Urinalysis,Microon 3 ----- Normal [facility] Comment on above: Performed By: #### U MICAO, UA #### [facility] [address] [place], [place] [phone] [employer]: Cirilo Casillas MD Bacteria 2+ Abnormal NONE [facility] Comment on above: Performed By: #### U MICAO, UA #### [facility] [address] [place], [place] [phone] [employer]: Cirilo Casillas MD Epithelial cells LM Ql (Urine sed) 10 TO 20 Normal [facility] Comment on above: Performed By: #### U MICAO, UA #### [facility] [address] [place] [address] [employer]: Cirilo Casillas MD Urine RBC's 5 TO 10 Normal 0-2 [facility] Comment on above: Performed By: #### U MICAO, UA #### [facility] [address] [place], [place] [phone] [employer]: Cirilo Casillas MD Urine WBC's 5 TO 10 Normal 0 [facility] Comment on above: Performed By: #### U MICAO, UA #### [facility] [address] [place], [place] [phone] [employer]: Cirilo Casillas MD Amylaseon 12-23-2022 Amylase [Catalytic activity/Vol] 60 U/L Normal 29-103 [facility] Comment on above: Performed By: #### C MP, CBC, SHILPA, LIPASE #### [facility] [address] [place] [id number] [facility] CT abdomen pelvis wo conon 0 12-23-2022 CT abdomen pelvis wo con [facility] [place] [address] [place] [address] CT Scan Report Signed Patient: Rola Aguilar MR#: [id number] : 1995 Acct:[id number] Age/Sex: 27 / F ADM Date: 12/23/22 Loc: ER Room: Type: [facility] ER Attending Dr: Copies to: Harry Nelson MD Ordering Provider: Harry Nelson MD Date of Service: 12/23/22 CT/CT abdomen pelvis wo con: Abdominal Pain CT ABDOMEN AND PELVIS WITHOUT INTRAVENOUS CONTRAST: CLINICAL HISTORY: Pain at ileostomy site with dizziness COMPARISON: None TECHNIQUE: Spiral images were obtained through the abdomen and pelvis without intravenous contrast. This CT exam was performed using one or more following dose reduction techniques: Automated exposure control, adjustment of the mA and/or kV according to patient size, or use of iterative reconstruction technique. FINDINGS: Lung Bases: [No acute findings] Organs:Suboptimal evaluation due to lack of IV contrast. Liver gallbladder spleen pancreas adrenal glands aorta and kidneys all appear unremarkable.[ GI: Stomach is grossly unremarkable. Small bowel appears nondilated. Right lower quadrant presumed diverting ileostomy is noted with associated parastomal hernia extending past the abdominal wall. No surrounding inflammatory changes are seen.[: Demonstrates no acute findings. Pelvis:[Urinary bladder is grossly unremarkable. No adnexal mass. Uterus is grossly unremarkable.] Peritoneum/Retroperito neum:No free air, free fluid or lymphadenopathy.[ Abd wall/Bones:Abdominal wall demonstrates no acute findings. Osseous structures demonstrate no acute findings.[ CT/CT abdomen pelvis wo con IMPRESSION: Right lower quadrant presumed diverting ileostomy is noted with associated peristomal hernia extending past the abdominal wall. No surrounding inflammatory changes are seen. No acute intra- abdominal process is noted. Impression dictated by: Joseluis Levin Jr., D.O.12/23/2022 5:41 PM Dictation Location: [place] [address] Transcribed By: [facility] 12/23/221740 Dictated By: Joseluis Levin Jr, DO 12/23/221734 Signed By: 12/23/22 174 Normal [facility] Complete Blood Count Auto Di ffon 12-23-2022 Basophils (Bld) [#/Vol] 0.0 10*3/uL Normal 0.0-0.2 [facility] Comment on above: Result Comment: PERF ORMED BY: [place] [address] PATHOLOGIST [employer] МАРИНА BENITEZ M.D. Performed By: #### C MP, CBC, SHILPA, LIPASE #### [address] Basophils/100 WBC (Bld) 0.5 % Normal . [facility] Comment on above: Performed By: #### C MP, CBC, SHILPA, LIPASE #### [facility] [address] [place] [address] Eosinophils (Bld) [#/Vol] 0.2 10*3/uL Normal 0.0-0.45 [facility] Comment on above: Performed By: #### C MP, CBC, SHILPA, LIPASE #### [place] [address] [place] Eosinophils/100 WBC (Bld) 3.2 % Normal . [facility] Comment on above: Performed By: #### C MP, CBC, SHILPA, LIPASE #### [facility] [address] [place] [address] Erythrocyte distribution width (RBC) [Ratio] 15.1 % Normal 11.9-15.3 [facility] Comment on above: Performed By: #### C MP, CBC, SHILPA, LIPASE #### [address] Hematocrit (Bld) [Volume fraction] 35.6 % Normal 34.0-46.4 [facility] Comment on above: Performed By: #### C MP, CBC, SHILPA, LIPASE #### [address] Hemoglobin (Bld) [Mass/Vol] 11.6 g/dL Low 11.8-15.4 [facility] Comment on above: Performed By: #### C MP, CBC, SHILPA, LIPASE #### [address] Lymphocytes (Bld) [#/Vol] 1.0 10*3/uL Normal 1.00-4.8 [facility] Comment on above: Performed By: #### C MP, CBC, SHILPA, LIPASE #### [address] Lymphocytes/100 WBC (Bld) 13.7 % Normal . [facility] Comment on above: Performed By: #### C MP, CBC, SHILPA, LIPASE #### [address] MCH (RBC) [Entitic mass] 26.5 pg Normal 24.7-34.3 [facility] Comment on above: Performed By: #### C MP, CBC, SHILPA, LIPASE #### [address] MCV (RBC) [Entitic vol] 81.0 fL Normal 80-100 [facility] Comment on above: Performed By: #### C MP, CBC, SHILPA, LIPASE #### [address] Mean Corpuscular HGB Conc 32.7 g/dL Normal 32.0-35.0 [facility] Comment on above: Performed By: #### C MP, CBC, SHILPA, LIPASE #### [address] Monocytes (Bld) [#/Vol] 0.5 10*3/uL Normal 0.0-0.8 [facility] Comment on above: Performed By: #### C MP, CBC, SHILPA, LIPASE #### [address] Monocytes/100 WBC (Bld) 17.96 % Normal 0.00-20.00 [facility] Comment on above: Performed By: #### C MP, CBC, SHILPA, LIPASE #### [address] Monocytes/100 WBC (Bld) 6.7 % Normal . [facility] Comment on above: Performed By: #### C MP, CBC, SHILPA, LIPASE #### [address] Neutrophils (Bld) [#/Vol] 5.8 10*3/uL Normal 1.8-7.7 [facility] Comment on above: Performed By: #### C MP, CBC, SHILPA, LIPASE #### [address] Neutrophils/100 WBC (Bld) 75.9 % Normal . [facility] Comment on above: Performed By: #### C MP, CBC, SHILPA, LIPASE #### [address] NRBC% 0.0 /100{WBC} Normal 0-0.5 [facility] Comment on above: Performed By: #### C MP, CBC, SHILPA, LIPASE #### [address] Platelet mean volume (Bld) [Entitic vol] 8.1 fL Normal 6.3-10.7 [facility] Comment on above: Performed By: #### C MP, CBC, SHILPA, LIPASE #### [address] Platelets (Bld) [#/Vol] 334 10*3/uL Normal 150-450 [facility] Comment on above: Performed By: #### C MP, CBC, SHILPA, LIPASE #### [address] RBC (Bld) [#/Vol] 4.40 10*6/uL Normal 3.60-5.00 [facility] Comment on above: Performed By: #### C MP, CBC, SHILPA, LIPASE #### [place] [address] [place] WBC (Bld) [#/Vol] 7.6 10*3/uL Normal 3.8-11.6 [facility] Comment on above: Performed By: #### C MP, CBC, SHILPA, LIPASE #### [facility] [address] Comprehensive Metabolic Pane chloe 12-23-2022 Albumin [Mass/Vol] 4.3 g/dL Normal 3.5-5.7 [facility] Comment on above: Performed By: #### C MP, CBC, SHILPA, LIPASE #### [facility] [address] [place] [address] Albumin/Globulin [Mass ratio] 1.3 {ratio} Normal [facility] Comment on above: Performed By: #### C MP, CBC, SHILPA, LIPASE #### [address] ALP [Catalytic activity/Vol] 58 U/L Normal 34-104 [facility] Comment on above: Performed By: #### C MP, CBC, SHILPA, LIPASE #### [facility] [address] [place] [address] ALT [Catalytic activity/Vol] 14 U/L Normal 7-52 [facility] Comment on above: Performed By: #### C MP, CBC, SHILPA, LIPASE #### [facility] [address] [place] [address] Anion gap [Moles/Vol] 11.1 mmol/L Normal 6.0-15.0 [facility] Comment on above: Performed By: #### C MP, CBC, SHILPA, LIPASE #### [facility] [address] [place] [address] AST [Catalytic activity/Vol] 15 U/L Normal 13-39 [facility] Comment on above: Performed By: #### C MP, CBC, SHILPA, LIPASE #### [facility] [address] [place] [address] Bilirubin [Mass/Vol] 0.2 mg/dL Low 0.3-1.0 [facility] Comment on above: Performed By: #### C MP, CBC, SHILPA, LIPASE #### [facility] [address] Calcium [Mass/Vol] 9.3 mg/dL Normal 8.6-10.3 [facility] Comment on above: Performed By: #### C MP, CBC, SHILPA, LIPASE #### [facility] [address] Chloride [Moles/Vol] 104 mmol/L Normal 98-107 [facility] Comment on above: Performed By: #### C MP, CBC, SHILPA, LIPASE #### [facility] [address] CO2 [Moles/Vol] 24.8 mmol/L Normal 21.0-31.0 [facility] Comment on above: Performed By: #### C MP, CBC, SHILPA, LIPASE #### [address] Creatinine [Mass/Vol] 0.72 mg/dL Normal 0.60-1.20 [facility] Comment on above: Performed By: #### C MP, CBC, SHILPA, LIPASE #### [place] [address] [place] Creatinine Clr Calc Pharmacy 136.33 [facility] Comment on above: Performed By: #### C MP, CBC, SHILPA, LIPASE #### [address] GFR/1.73 sq M.predicted MDRD (S/P/Bld) [Vol rate/Area] mL/min/{1.73_m2} [facility] Comment on above: Performed By: #### C MP, CBC, SHILPA, LIPASE #### [address] Globulin (S) [Mass/Vol] 3.3 g/dL [facility] Comment on above: Performed By: #### C MP, CBC, SHILPA, LIPASE #### [facility] [address] Glucose [Mass/Vol] 83 mg/dL Normal 70-100 [facility] Comment on above: Result Comment: [place] Glucose Reference Range is dependent on time and content of last meal. Glucose of more than 200 mg/dL in a nonstressed, ambulatory subject supports the diagnosis of Diabetes Mellitus. ADA recommended reference range Performed By: #### C MP, CBC, SHILPA, LIPASE #### [facility] [address] Potassium [Moles/Vol] 3.9 mmol/L Normal 3.5-5.1 [facility] Comment on above: Performed By: #### C MP, CBC, SHILPA, LIPASE #### [address] Protein [Mass/Vol] 7.6 g/dL Normal 6.4-8.9 [facility] Comment on above: Performed By: #### C MP, CBC, SHILPA, LIPASE #### [address] Sodium [Moles/Vol] 136 mmol/L Normal 136-145 [facility] Comment on above: Performed By: #### C MP, CBC, SHILPA, LIPASE #### [address] Urea nitrogen [Mass/Vol] 11 mg/dL Normal 7-25 [facility] Comment on above: Performed By: #### C MP, CBC, SHILPA, LIPASE #### [place] [address] [place] Dipstick and Microscopicon 0 12-23-2022 Appearance (U) Clear Normal Clear [facility] Comment on above: Order Comment: Name Collection Type:: Clean-Voided Midstream Performed By: #### U HCG, CUU, ADDONUAPLUS #### [place] [address] [place] Bacteria,Urine None Seen Normal None Seen [facility] Comment on above: Order Comment: Name Collection Type:: Clean-Voided Midstream Performed By: #### U HCG, CUU, ADDONUAPLUS #### [place] [address] [place] Bilirubin,Urine Negative Normal Negative [facility] Comment on above: Order Comment: Name Collection Type:: Clean-Voided Midstream Performed By: #### U HCG, CUU, ADDONUAPLUS #### [facility] [address] [place] [address] [place] Color (U) Yellow Normal Yellow [facility] Comment on above: Order Comment: Name Collection Type:: Clean-Voided Midstream Performed By: #### U HCG, CUU, ADDONUAPLUS #### [facility] [address] [place] [address] Glucose Ql (U) Normal Normal Normal [facility] Comment on above: Order Comment: Name Collection Type:: Clean-Voided Midstream Performed By: #### U HCG, CUU, ADDONUAPLUS #### [facility] [address] [place] [address] [place] Hyaline Casts,Urine 0-8 Normal 0-8 [facility] Comment on above: Order Comment: Name Collection Type:: Clean-Voided Midstream Performed By: #### U HCG, CUU, ADDONUAPLUS #### [facility] [address] [place] [address] [place] Ketones Ql (U) Negative Normal Negative [facility] Comment on above: Order Comment: Name Collection Type:: Clean-Voided Midstream Performed By: #### U HCG, CUU, ADDONUAPLUS #### [facility] [address] [place] [address] [place] Leukocyte esterase Test strip Ql (U) 3+ High Negative [facility] Comment on above: Order Comment: Name Collection Type:: Clean-Voided Midstream Performed By: #### U HCG, CUU, ADDONUAPLUS #### [facility] [address] [place] [address] [place] Nitrite,Urine Negative Normal Negative [facility] Comment on above: Order Comment: Name Collection Type:: Clean-Voided Midstream Performed By: #### U HCG, CUU, ADDONUAPLUS #### [facility] [address] [place] [address] [place] Occult Blood,Urine Negative Normal Negative [facility] Comment on above: Order Comment: Name Collection Type:: Clean-Voided Midstream Performed By: #### U HCG, CUU, ADDONUAPLUS #### [address] pH (U) 6.5 [pH] Normal 5.0-9.0 [facility] Comment on above: Order Comment: Name Collection Type:: Clean-Voided Midstream Performed By: #### U HCG, CUU, ADDONUAPLUS #### [address] Protein,Urine Negative Normal Negative [facility] Comment on above: Order Comment: Name Collection Type:: Clean-Voided Midstream Performed By: #### U HCG, CUU, ADDONUAPLUS #### [address] RBC LM.HPF (Urine sed) [#/Area] 0 /[HPF] Normal 0-4 [facility] Comment on above: Order Comment: Name Collection Type:: Clean-Voided Midstream Performed By: #### U HCG, CUU, ADDONUAPLUS #### [address] Specificy [place],Urine 1.002 Normal 1.001-1.030 [facility] Comment on above: Order Comment: Name Collection Type:: Clean-Voided Midstream Performed By: #### U HCG, CUU, ADDONUAPLUS #### [address] Squamous Epithelial Cell,Urine 3-4 High 0-2 [facility] Comment on above: Order Comment: Name Collection Type:: Clean-Voided Midstream Performed By: #### U HCG, CUU, ADDONUAPLUS #### [address] Urobilinogen,Urine Normal Normal Normal [facility] Comment on above: Order Comment: Name Collection Type:: Clean-Voided Midstream Performed By: #### U HCG, CUU, ADDONUAPLUS #### [address] WBC,Urine 5-9 High 0-4 [facility] Comment on above: Order Comment: Name Collection Type:: Clean-Voided Midstream Performed By: #### U HCG, CUU, ADDONUAPLUS #### [address] HCG,Urineon 12-23-2022 Beta HCG ( test) Ql (U) Negative Normal [facility] Comment on above: Order Comment: Name Collection Type:: Clean-Voided Midstream Result Comment: PERF ORMED BY: [place] [address] PATHOLOGIST [employer] МАРИНА BENITEZ M.D. Performed By: #### U HCG, CUU, ADDONUAPLUS #### [address] Lipaseon 12-23-2022 Lipase [Catalytic activity/Vol] 86.0 U/L High 11.0-82.0 [facility] Comment on above: Result Comment: PERF ORMED BY: [place] [address] PATHOLOGIST [employer] МАРИНА BENITEZ M.D. Performed By: #### C MP, CBC, SHILPA, LIPASE #### [facility] [address] [place] [address] Urine Cultureon 12-23-2022 Bacteria identified Cx Nom (U) >100,000 colonies/ml mixed bacterial skin contaminants 2 Days PERFORMED BY: [place] [address] PATHOLOGIST [employer] МАРИНА BENITEZ M.D. Normal [facility] Comment on above: Performed By: #### C MP, LIPASE, CBC #### [facility] [address] [place] [address] CHEMISTRYOrdered By: SYSTEM SYSTEM on 09-29-2022 Albumin [Mass/Vol] 3.8 g/dL Normal 3.3 - 5.0 gm/dL [facility] Albumin/Globulin [Mass ratio] 0.9 {ratio} Low 1.1 - 2.2 [facility] ALP [Catalytic activity/Vol] 55 [iU]/d Normal 21 - 98 Int._Unit/L [facility] ALT No additional P-5'-P [Catalytic activity/Vol] 19 [iU]/d Normal 6 - 46 Int._Unit/L [facility] Anion gap [Moles/Vol] 8 mmol/L Normal 6 - 16 mEq/L [facility] AST [Catalytic activity/Vol] 17 [iU]/d Normal 5 - 43 Int._Unit/L [facility] Bilirubin [Mass/Vol] 0.4 mg/dL Normal 0.0 - 1 .1 mg/dL [facility] Bilirubin.direct [Mass/Vol] mg/dL Normal 0.1 - 0.4 mg/dL [facility] Bilirubin.indirect [Mass or moles/Vol] Unable to Calculate mg/dL Invalid Interpretation Code 0.1 - 0.9 mg/dL [facility] Calcium [Mass/Vol] 8.6 mg/dL Low 8.9 - 11. 1 mg/dL [facility] Chloride [Moles/Vol] 106 mmol/L Normal 101 - 1 11 mmol/L [facility] CO2 [Moles/Vol] 24 mmol/L Normal 21 - 31 mmol/L [facility] Creatinine [Mass/Vol] 0.9 mg/dL Normal 0.5 - 1.3 mg/dL [facility] GFR/1.73 sq M.predicted among blacks MDRD (S/P/Bld) [Vol rate/Area] mL/min/1.73 m2 Normal >=59mL/min/1.7 3 m2 [facility] Chem S GFR/1.73 sq M.predicted among non-blacks MDRD (S/P/Bld) [Vol rate/Area] mL/min/1.73 m2 Normal >=59mL/min/1.7 3 m2 [facility] Chem S Globulin (S) [Mass/Vol] 4.2 g/dL High 1.4 - 4.0 gm/dL [facility] Glucose [Mass/Vol] 88 mg/dL Normal 55 - 199 mg/dL [facility] Lipase [Catalytic activity/Vol] 40 U/L Normal 13 - 58 unit/L [facility] Potassium [Moles/Vol] 3.7 mmol/L Normal 3.5 - 5.3 mmol/L [facility] Protein [Mass/Vol] 8.0 g/dL High 6.0 - 7.8 gm/dL [facility] Sodium [Moles/Vol] 134 mmol/L Low 135 - 145 mmol/L [facility] Urea nitrogen [Mass/Vol] 12 mg/dL Normal 5 - 21 mg/dL [facility] Urea nitrogen/Creatinine [Mass ratio] 13 mg/mg Normal 10 - 20 [facility] COAGULATIONOrdered By: Rakel Garrison on 09-29-2022 aPTT Coag (PPP) [Time] 28.4 s Normal 25.1 - 36.5 second(s) [facility] INR Coag (PPP) [Relative time] 1.0 {INR} Invalid Interpretation Code [facility] PT Coag (PPP) [Time] 11.4 s Normal 9.4 - 1 2.5 second(s) [facility] HEMATOLOGYOrdered By: SYSTEM SYSTEM on 09-29-2022 Basophils/100 WBC (Bld) 0.2 % Normal 0.0 - 2.0 % [facility] Basophils/Leukocytes Auto (Bld) [Pure # fraction] 0.0 E9/L Normal 0.0 - 0.2 E9/L [facility] Eosinophils/100 WBC (Bld) 3.0 % Normal 0.0 - 8.0 % [facility] Eosinophils/Leukocyt es Auto (Bld) [Pure # fraction] 0.2 E9/L Normal 0.0 - 0.5 E9/L [facility] Lymphocytes/100 WBC (Bld) 15.8 % Normal 14.0 - 50.0 % [facility] Lymphocytes/Leukocyt es Auto (Bld) [Pure # fraction] 1.0 E9/L Normal 1.0 - 4.0 E9/L [facility] Monocytes/100 WBC (Bld) 6.4 % Normal 4.0 - 14.0 % [facility] Monocytes/Leukocytes Auto (Bld) [Pure # fraction] 0.4 E9/L Normal 0.2 - 1.0 E9/L [facility] Neutrophils/100 WBC (Bld) 74.6 % Normal 36.0 - 75.0 % [facility] Neutrophils/Leukocyt es Auto (Bld) [Pure # fraction] 4.7 E9/L Normal 2.0 - 7.5 E9/L [facility] HEMATOLOGYOrdered By: Corie Gardiner on 09-29-2022 Erythrocyte distribution width (RBC) [Ratio] 16.5 % High 10.9 - 14.2 % [facility] Hematocrit (Bld) [Volume fraction] 36.1 % Normal 34.0 - 46.0 % [facility] Hemoglobin (Bld) [Mass/Vol] 11.7 g/dL Low 12.0 - 16.0 gm/dL [facility] MCH (RBC) [Entitic mass] 26.1 pg Low 27.0 - 34.0 pg [facility] MCHC (RBC) [Mass/Vol] 32.4 g/dL Normal 31.4 - 36.0 gm/dL [facility] MCV (RBC) [Entitic vol] 80.5 fL Normal 80.0 - 100.0 fL [facility] Platelet mean volume (Bld) [Entitic vol] 8.2 fL Normal 6.4 - 10.8 fL [facility] Platelets (Bld) [#/Vol] 333.0 E9/L Normal 150.0 - 500.0 E9/L [facility] RBC (Bld) [#/Vol] 4.5 E12/L Normal 4.3 - 5.9 E12/L [facility] WBC corrected for nucl RBC Auto (Bld) [#/Vol] 6.4 E9/L Normal 4.0 - 11.0 E9/L [facility] URINALYSISOrdered By: Rakel Garrison on 09-29-2022 Bilirubin Ql (U) Negative (09/29/22 8:15 PM) Normal Negative [facility] SS Clarity (U) Clear (09/29/22 8:15 PM) Normal Clear [facility] Color (U) Yellow (09/29/22 8:15 PM) Normal Yellow [facility] Epithelial cells.squamous LM.HPF (Urine sed) [#/Area] 0-2 /HPF Normal 0-2/HPF [facility] Glucose Test strip (U) [Mass/Vol] Negative (09/29/22 8:15 PM) Normal Negative [facility] Hemoglobin Ql (U) 2+ *ABN* (09/29/22 8:15 PM) Invalid Interpretation Code Negative [facility] Ketones (U) [Mass/Vol] Negative (09/29/22 8:15 PM) Normal Negative [facility] Auto SS [place].plasma/Lithi um.RBC (Bld) [Mass ratio] 0-3 /HPF Normal 0-3/HPF [facility] Nitrite Ql (U) Negative (09/29/22 8:15 PM) Normal Negative [facility] pH (U) 5.5 *NA* (09/29/22 8:15 PM) Invalid Interpretation Code 5.0 - 9.0 [facility] Protein (U) [Mass/Vol] Negative (09/29/22 8:15 PM) Normal Negative [facility] SS Specific gravity (U) [Rel density] >=1.030 *NA* (09/29/22 8:15 PM) Invalid Interpretation Code 1.005 - 1.030 [facility] Auto SS UA Spec Desc Clean Catch (09/29/22 8:15 PM) Normal [facility] SS Urobilinogen Qn (U) [id number] {Keyla'U}/dL Normal 0.0 - 1.0 EU/dL [facility] SS WBC Auto Ql (U) Negative (09/29/22 8:15 PM) Normal Negative [facility] Auto SS WBC LM.HPF (Urine sed) [#/Area] 0-5 /HPF Normal 0-5/HPF [facility] SS CHEMISTRYOrdered By: SYSTEM SYSTEM on 05-30-2022 Albumin [Mass/Vol] 4.4 g/dL Normal 3.3 - 5.0 gm/dL [facility] Albumin/Globulin [Mass ratio] 0.9 {ratio} Low 1.1 - 2.2 [facility] ALP [Catalytic activity/Vol] 57 [iU]/d Normal 21 - 98 Int._Unit/L [facility] ALT No additional P-5'-P [Catalytic activity/Vol] 21 [iU]/d Normal 6 - 46 Int._Unit/L [facility] Comment on above: Result Comment: 'Spe cimen hemolyzed, result may be affected. Recommend redraw.' Anion gap [Moles/Vol] 14 mmol/L Normal 6 - 16 mEq/L [facility] AST [Catalytic activity/Vol] 33 [iU]/d Normal 5 - 43 Int._Unit/L [facility] Comment on above: Result Comment: 'Spe cimen hemolyzed, result may be affected. Recommend redraw.' Bilirubin [Mass/Vol] 1.1 mg/dL Normal 0.0 - 1 .1 mg/dL [facility] Comment on above: Result Comment: 'Spe cimen hemolyzed, result may be affected. Redraw is recommended.' Bilirubin.direct [Mass/Vol] 0.4 mg/dL Normal 0.1 - 0.4 mg/dL [facility] Comment on above: Result Comment: 'Spe cimen hemolyzed, result may be affected. Redraw recommended.' Bilirubin.indirect [Mass or moles/Vol] 0.8 mg/dL Normal 0.1 - 0.9 mg/dL [facility] Calcium [Mass/Vol] 9.4 mg/dL Normal 8.9 - 11. 1 mg/dL [facility] Chloride [Moles/Vol] 104 mmol/L Normal 101 - 1 11 mmol/L [facility] CO2 [Moles/Vol] 20 mmol/L Low 21 - 31 mmol/L [facility] Creatinine [Mass/Vol] 1.0 mg/dL Normal 0.5 - 1.3 mg/dL [facility] GFR/1.73 sq M.predicted among blacks MDRD (S/P/Bld) [Vol rate/Area] mL/min/1.73 m2 Normal >=59mL/min/1.7 3 m2 [facility] S GFR/1.73 sq M.predicted among non-blacks MDRD (S/P/Bld) [Vol rate/Area] mL/min/1.73 m2 Normal >=59mL/min/1.7 3 m2 [facility] S Globulin (S) [Mass/Vol] 4.8 g/dL High 1.4 - 4.0 gm/dL [facility] Glucose [Mass/Vol] 97 mg/dL Normal 55 - 199 mg/dL [facility] Lactate [Mass/Vol] 1.2 mmol/L Normal 0.5 - 2.2 mmol/L [facility] Lipase [Catalytic activity/Vol] 40 U/L Normal 13 - 58 unit/L [facility] Potassium [Moles/Vol] 4.3 mmol/L Normal 3.5 - 5.3 mmol/L [facility] Comment on above: Result Comment: 'Spe cimen hemolyzed. Result may be affected. Redraw is recommended.' Protein [Mass/Vol] 9.2 g/dL High 6.0 - 7.8 gm/dL [facility] Sodium [Moles/Vol] 134 mmol/L Low 135 - 145 mmol/L [facility] Urea nitrogen [Mass/Vol] 16 mg/dL Normal 5 - 21 mg/dL [facility] Urea nitrogen/Creatinine [Mass ratio] 16 mg/mg Normal 10 - 20 [facility] HEMATOLOGYOrdered By: SYSTEM SYSTEM on 05-30-2022 Basophils/100 WBC (Bld) 0.4 % Normal 0.0 - 2.0 % [facility] Basophils/Leukocytes Auto (Bld) [Pure # fraction] 0.0 E9/L Normal 0.0 - 0.2 E9/L [facility] Eosinophils/100 WBC (Bld) 1.7 % Normal 0.0 - 8.0 % [facility] Eosinophils/Leukocyt es Auto (Bld) [Pure # fraction] 0.2 E9/L Normal 0.0 - 0.5 E9/L [facility] Lymphocytes/100 WBC (Bld) 13.9 % Low 14.0 - 50.0 % [facility] Lymphocytes/Leukocyt es Auto (Bld) [Pure # fraction] 1.3 E9/L Normal 1.0 - 4.0 E9/L [facility] Monocytes/100 WBC (Bld) 5.3 % Normal 4.0 - 14.0 % [facility] Monocytes/Leukocytes Auto (Bld) [Pure # fraction] 0.5 E9/L Normal 0.2 - 1.0 E9/L [facility] Neutrophils/100 WBC (Bld) 78.7 % High 36.0 - 75.0 % [facility] Neutrophils/Leukocyt es Auto (Bld) [Pure # fraction] 7.2 E9/L Normal 2.0 - 7.5 E9/L [facility] HEMATOLOGYOrdered By: Corie Gardiner on 05-30-2022 Erythrocyte distribution width (RBC) [Ratio] 15.9 % High 10.9 - 14.2 % [facility] Hematocrit (Bld) [Volume fraction] 38.0 % Normal 34.0 - 46.0 % [facility] Hemoglobin (Bld) [Mass/Vol] 12.7 g/dL Normal 12.0 - 16.0 gm/dL [facility] MCH (RBC) [Entitic mass] 26.2 pg Low 27.0 - 34.0 pg [facility] MCHC (RBC) [Mass/Vol] 33.4 g/dL Normal 31.4 - 36.0 gm/dL [facility] MCV (RBC) [Entitic vol] 78.4 fL Low 80.0 - 100.0 fL [facility] Platelet mean volume (Bld) [Entitic vol] 8.0 fL Normal 6.4 - 10.8 fL [facility] Platelets (Bld) [#/Vol] 300.0 E9/L Normal 150.0 - 500.0 E9/L [facility] RBC (Bld) [#/Vol] 4.8 E12/L Normal 4.3 - 5.9 E12/L [facility] WBC corrected for nucl RBC Auto (Bld) [#/Vol] 9.1 E9/L Normal 4.0 - 11.0 E9/L [facility] SEROLOGYOrdered By: Andrew chapin on 05-30-2022 Beta hCG Ql Negative (05/30/22 9:16 PM) Normal [facility] URINALYSISOrdered By: Andrew dennis on 05-30-2022 Bacteria LM Ql (Urine sed) Trace /HPF Normal Trace/HPF [facility] Bilirubin Ql (U) Negative (05/30/22 9:39 PM) Normal Negative [facility] Clarity (U) Clear (05/30/22 9:39 PM) Normal Clear [facility] Color (U) Yellow (05/30/22 9:39 PM) Normal Yellow [facility] Crystals LM Ql (Urine sed) Present (05/30/22 9:39 PM) Normal [facility] Epithelial cells.squamous LM.HPF (Urine sed) [#/Area] 5-8 /HPF Normal 0-2/HPF [facility] Glucose Test strip (U) [Mass/Vol] Negative (05/30/22 9:39 PM) Normal Negative [facility] Hemoglobin Ql (U) Trace *ABN* (05/30/22 9:39 PM) Invalid Interpretation Code Negative [facility] Ketones (U) [Mass/Vol] Negative (05/30/22 9:39 PM) Normal Negative [facility] Auto SS [place].plasma/Lithi um.RBC (Bld) [Mass ratio] 0-3 /HPF Normal 0-3/HPF [facility] Mucus Ql (Urine sed) 1+ (05/30/22 9:39 PM) Normal [facility] Nitrite Ql (U) Negative (05/30/22 9:39 PM) Normal Negative [facility] pH (U) 6.0 *NA* (05/30/22 9:39 PM) Invalid Interpretation Code 5.0 - 9.0 [facility] Protein (U) [Mass/Vol] Trace *ABN* (05/30/22 9:39 PM) Invalid Interpretation Code Negative [facility] SS Specific gravity (U) [Rel density] >=1.030 *NA* (05/30/22 9:39 PM) Invalid Interpretation Code 1.005 - 1.030 [facility] UA Auto SS UA Spec Desc Clean Catch (05/30/22 9:39 PM) Normal [facility] UA Auto SS Urobilinogen Qn (U) [id number] {Keyla'U}/dL Normal 0.0 - 1.0 EU/dL [facility] WBC Auto Ql (U) Negative (05/30/22 9:39 PM) Normal Negative [facility] SS WBC casts LM.LPF (Urine sed) [#/Area] 0-3 (05/30/22 9:39 PM) Normal [facility] SS WBC LM.HPF (Urine sed) [#/Area] 0-5 /HPF Normal 0-5/HPF [facility] CHEMISTRYOrdered By: SYSTEM SYSTEM on 02-27-2022 Lactate [Mass/Vol] 1.0 mmol/L Normal 0.5 - 2.2 mmol/L [facility] Albumin [Mass/Vol] 3.9 g/dL Normal 3.3 - 5.0 gm/dL [facility] Albumin/Globulin [Mass ratio] 1.0 {ratio} Low 1.1 - 2.2 [facility] ALP [Catalytic activity/Vol] 61 [iU]/d Normal 21 - 98 Int._Unit/L [facility] ALT No additional P-5'-P [Catalytic activity/Vol] 24 [iU]/d Normal 6 - 46 Int._Unit/L [facility] Anion gap [Moles/Vol] 14 mmol/L Normal 6 - 16 mEq/L [facility] AST [Catalytic activity/Vol] 26 [iU]/d Normal 5 - 43 Int._Unit/L [facility] Bilirubin [Mass/Vol] 0.4 mg/dL Normal 0.0 - 1 .1 mg/dL [facility] Bilirubin.direct [Mass/Vol] mg/dL Normal 0.1 - 0.4 mg/dL [facility] Bilirubin.indirect [Mass or moles/Vol] Unable to Calculate mg/dL Invalid Interpretation Code 0.1 - 0.9 mg/dL [facility] Calcium [Mass/Vol] 8.7 mg/dL Low 8.9 - 11. 1 mg/dL [facility] Chloride [Moles/Vol] 99 mmol/L Low 101 - 1 11 mmol/L [facility] CO2 [Moles/Vol] 22 mmol/L Normal 21 - 31 mmol/L [facility] Creatinine [Mass/Vol] 0.8 mg/dL Normal 0.5 - 1.3 mg/dL [facility] GFR/1.73 sq M.predicted among blacks MDRD (S/P/Bld) [Vol rate/Area] mL/min/1.73 m2 Normal >=59mL/min/1.7 3 m2 [facility] Chem S GFR/1.73 sq M.predicted among non-blacks MDRD (S/P/Bld) [Vol rate/Area] mL/min/1.73 m2 Normal >=59mL/min/1.7 3 m2 [facility] Chem S Globulin (S) [Mass/Vol] 4.1 g/dL High 1.4 - 4.0 gm/dL [facility] Glucose [Mass/Vol] 105 mg/dL Normal 55 - 199 mg/dL [facility] Lipase [Catalytic activity/Vol] 35 U/L Normal 13 - 58 unit/L [facility] Magnesium [Mass/Vol] 1.5 mg/dL Normal 1.3 - 2 .4 mg/dL [facility] Potassium [Moles/Vol] 3.0 mmol/L Low 3.5 - 5.3 mmol/L [facility] Protein [Mass/Vol] 8.0 g/dL High 6.0 - 7.8 gm/dL [facility] Sodium [Moles/Vol] 132 mmol/L Low 135 - 145 mmol/L [facility] Urea nitrogen [Mass/Vol] 6 mg/dL Normal 5 - 21 mg/dL [facility] Urea nitrogen/Creatinine [Mass ratio] 8 mg/mg Low 10 - 20 [facility] HEMATOLOGYOrdered By: SYSTEM SYSTEM on 02-27-2022 Basophils/100 WBC (Bld) 0.3 % Normal 0.0 - 2.0 % [facility] HemeAutoSS Basophils/Leukocytes Auto (Bld) [Pure # fraction] 0.0 E9/L Normal 0.0 - 0.2 E9/L [facility] HemeAutoSS Eosinophils/100 WBC (Bld) 2.3 % Normal 0.0 - 8.0 % [facility] HemeAutoSS Eosinophils/Leukocyt es Auto (Bld) [Pure # fraction] 0.2 E9/L Normal 0.0 - 0.5 E9/L [facility] Lymphocytes/100 WBC (Bld) 6.6 % Low 14.0 - 50.0 % [facility] Lymphocytes/Leukocyt es Auto (Bld) [Pure # fraction] 0.4 E9/L Low 1.0 - 4.0 E9/L [facility] Monocytes/100 WBC (Bld) 6.8 % Normal 4.0 - 14.0 % [facility] Monocytes/Leukocytes Auto (Bld) [Pure # fraction] 0.5 E9/L Normal 0.2 - 1.0 E9/L [facility] Neutrophils/100 WBC (Bld) 84.0 % High 36.0 - 75.0 % [facility] Neutrophils/Leukocyt es Auto (Bld) [Pure # fraction] 5.7 E9/L Normal 2.0 - 7.5 E9/L [facility] HEMATOLOGYOrdered By: Babs singer on 02-27-2022 Erythrocyte distribution width (RBC) [Ratio] 16.8 % High 10.9 - 14.2 % [facility] Hematocrit (Bld) [Volume fraction] 37.7 % Normal 34.0 - 46.0 % [facility] Hemoglobin (Bld) [Mass/Vol] 11.8 g/dL Low 12.0 - 16.0 gm/dL [facility] MCH (RBC) [Entitic mass] 25.3 pg Low 27.0 - 34.0 pg [facility] MCHC (RBC) [Mass/Vol] 31.2 g/dL Low 31.4 - 36.0 gm/dL [facility] MCV (RBC) [Entitic vol] 80.9 fL Normal 80.0 - 100.0 fL [facility] Platelet mean volume (Bld) [Entitic vol] 8.5 fL Normal 6.4 - 10.8 fL [facility] Platelets (Bld) [#/Vol] 291.0 E9/L Normal 150.0 - 500.0 E9/L [facility] RBC (Bld) [#/Vol] 4.7 E12/L Normal 4.3 - 5.9 E12/L [facility] WBC corrected for nucl RBC Auto (Bld) [#/Vol] 6.8 E9/L Normal 4.0 - 11.0 E9/L [facility] SEROLOGYOrdered By: Babs Sevilla lps on 02-27-2022 HCG.beta subunit (U) [Moles/Vol] Negative Normal [facility] URINALYSISOrdered By: Alliso n Zuleyka on 02-27-2022 Bacteria LM Ql (Urine sed) Trace /HPF Normal Trace/HPF [facility] Bilirubin Ql (U) Negative (02/27/22 9:10 PM) Normal Negative [facility] Clarity (U) Slightly Cloudy *ABN* (02/27/22 9:10 PM) Invalid Interpretation Code Clear [facility] Color (U) Yellow (02/27/22 9:10 PM) Normal Yellow [facility] Crystals LM Ql (Urine sed) Present (02/27/22 9:10 PM) Normal [facility] SS Epithelial cells.squamous LM.HPF (Urine sed) [#/Area] 3-4 /HPF Normal 0-2/HPF [facility] Glucose Test strip (U) [Mass/Vol] Negative (02/27/22 9:10 PM) Normal Negative [facility] SS Hemoglobin Ql (U) 3+ *ABN* (02/27/22 9:10 PM) Invalid Interpretation Code Negative [facility] Ketones (U) [Mass/Vol] Negative (02/27/22 9:10 PM) Normal Negative [facility]A Auto SS Reddell.plasma/Lithi um.RBC (Bld) [Mass ratio] 0-3 /HPF Normal 0-3/HPF [facility] Auto SS Nitrite Ql (U) Negative (02/27/22 9:10 PM) Normal Negative [facility] pH (U) 6.0 *NA* (02/27/22 9:10 PM) Invalid Interpretation Code 5.0 - 9.0 [facility] Auto SS Protein (U) [Mass/Vol] Negative (02/27/22 9:10 PM) Normal Negative [facility] SS Specific gravity (U) [Rel density] <=1.005 *NA* (02/27/22 9:10 PM) Invalid Interpretation Code 1.005 - 1.030 [facility] Auto SS UA Spec Desc Clean Catch (02/27/22 9:10 PM) Normal [facility] UA Auto SS Urobilinogen Qn (U) [id number] {Keyla'U}/dL Normal 0.0 - 1.0 EU/dL [facility] Auto SS WBC Auto Ql (U) 1+ *ABN* (02/27/22 9:10 PM) Invalid Interpretation Code Negative [facility] SS WBC LM.HPF (Urine sed) [#/Area] 0-5 /HPF Normal 0-5/HPF [facility] SS CHEMISTRYOrdered By: SYSTEM SYSTEM on 12-18-2021 Troponin I.cardiac [Mass/Vol] pg/mL Low 10.10 - 27.10 pg/mL [facility] Anion gap [Moles/Vol] 14 mmol/L Normal 6 - 16 mEq/L [facility] Calcium [Mass/Vol] 9.1 mg/dL Normal 8.9 - 11. 1 mg/dL [facility] Chloride [Moles/Vol] 107 mmol/L Normal 101 - 1 11 mmol/L [facility] CO2 [Moles/Vol] 21 mmol/L Normal 21 - 31 mmol/L [facility] Creatinine [Mass/Vol] 0.7 mg/dL Normal 0.5 - 1.3 mg/dL [facility] GFR/1.73 sq M.predicted among blacks MDRD (S/P/Bld) [Vol rate/Area] mL/min/1.73 m2 Normal >=59mL/min/1.7 3 m2 [facility] Chem S GFR/1.73 sq M.predicted among non-blacks MDRD (S/P/Bld) [Vol rate/Area] mL/min/1.73 m2 Normal >=59mL/min/1.7 3 m2 [facility] Chem S Glucose [Mass/Vol] 91 mg/dL Normal 55 - 199 mg/dL [facility] Potassium [Moles/Vol] 3.3 mmol/L Low 3.5 - 5.3 mmol/L [facility] Sodium [Moles/Vol] 139 mmol/L Normal 135 - 145 mmol/L [facility] Troponin I.cardiac [Mass/Vol] 2.60 pg/mL Low 10.10 - 27.10 pg/mL [facility] Urea nitrogen [Mass/Vol] 6 mg/dL Normal 5 - 21 mg/dL [facility] Urea nitrogen/Creatinine [Mass ratio] 9 mg/mg Low 10 - 20 [facility] COAGULATIONOrdered By: Acosta Aguirre on 12-18-2021 aPTT Coag (PPP) [Time] 28.8 s Normal 25.1 - 36.5 second(s) [facility] Auto Coag INR Coag (PPP) [Relative time] 1.1 {INR} Invalid Interpretation Code [facility] Auto Coag PT Coag (PPP) [Time] 13.0 s High 10.2 - 12.9 second(s) [facility] Auto Coag HEMATOLOGYOrdered By: SYSTEM SYSTEM on 12-18-2021 Basophils/100 WBC (Bld) 0.3 % Normal 0.0 - 2.0 % [facility] Basophils/Leukocytes Auto (Bld) [Pure # fraction] 0.0 E9/L Normal 0.0 - 0.2 E9/L [facility] Eosinophils/100 WBC (Bld) 3.0 % Normal 0.0 - 8.0 % [facility] Eosinophils/Leukocyt es Auto (Bld) [Pure # fraction] 0.2 E9/L Normal 0.0 - 0.5 E9/L [facility] Lymphocytes/100 WBC (Bld) 20.4 % Normal 14.0 - 50.0 % [facility] Lymphocytes/Leukocyt es Auto (Bld) [Pure # fraction] 1.4 E9/L Normal 1.0 - 4.0 E9/L [facility] Monocytes/100 WBC (Bld) 8.1 % Normal 4.0 - 14.0 % [facility] Monocytes/Leukocytes Auto (Bld) [Pure # fraction] 0.6 E9/L Normal 0.2 - 1.0 E9/L [facility] Neutrophils/100 WBC (Bld) 68.2 % Normal 36.0 - 75.0 % [facility] Neutrophils/Leukocyt es Auto (Bld) [Pure # fraction] 4.7 E9/L Normal 2.0 - 7.5 E9/L [facility] HEMATOLOGYOrdered By: Acosta Aguirre on 12-18-2021 Erythrocyte distribution width (RBC) [Ratio] 16.7 % High 10.9 - 14.2 % [facility] Hematocrit (Bld) [Volume fraction] 35.8 % Normal 34.0 - 46.0 % [facility] Hemoglobin (Bld) [Mass/Vol] 12.3 g/dL Normal 12.0 - 16.0 gm/dL [facility] MCH (RBC) [Entitic mass] 27.6 pg Normal 27.0 - 34.0 pg [facility] MCHC (RBC) [Mass/Vol] 34.5 g/dL Normal 31.4 - 36.0 gm/dL [facility] MCV (RBC) [Entitic vol] 79.9 fL Low 80.0 - 100.0 fL [facility] Platelet mean volume (Bld) [Entitic vol] 7.9 fL Normal 6.4 - 10.8 fL [facility] HemeAutoSS Platelets (Bld) [#/Vol] 350.0 E9/L Normal 150.0 - 500.0 E9/L [facility] HemeAutoSS RBC (Bld) [#/Vol] 4.5 E12/L Normal 4.3 - 5.9 E12/L [facility] HemeAutoSS WBC corrected for nucl RBC Auto (Bld) [#/Vol] 6.8 E9/L Normal 4.0 - 11.0 E9/L [facility] HemeAutoSS CT ABDOMEN/PELVIS W/ CONTRAS Ton 07-17-2021 CT ABDOMEN/PELVIS W/ CONTRAST EXAMINATION: CT ABDOMEN/PELVIS W/ CONTRAST CLINICAL HISTORY: Reason for Exam: abd pain ASSOCIATED DIAGNOSIS: abd pain TECHNOLOGISTS NOTE: COMPARISON: None TECHNIQUE: Contiguous axial images were obtained through the abdomen and pelvis from the level of the diaphragmatic domes through the pubic symphysis following bolus administration of intravenous contrast. MPR sagittal and coronal reconstructions were obtained from the axial data. Before infusion of intravenous contrast, radiology personnel investigated the possibility of an allergic history and of any history of reaction to iodinated contrast material. Contrast Protocol: Omnipaque 350 [>or =100lb] 100 ml [<100 lb] 1 ml per 1 lb. INTRA-PROCEDURE MEDS: iohexol (OMNIPAQUE) 350 MG/ML injection 100 mL INTRAVENOUS iohexol (OMNIPAQUE) 300 MG/ML injection 9000 mg ORAL FINDINGS: Included images of the lower thorax: No focal lung consolidation or pleural effusion. Partially seen radiodensities over the breasts, suggestive of body jewelry. Hepatobiliary: Unremarkable liver without biliary dilation. Pancreas: Unremarkable Spleen: Unremarkable Adrenal Glands: Unremarkable Kidneys, ureters, and bladder: Kidneys enhance symmetrically. There is no evidence of hydronephrosis. Bladder is unremarkable. Abdominal and pelvic vasculature: Unremarkable GI tract: No evidence of active inflammatory bowel disease. Tentative visualization of the appendix which is normal in appearance. Right lower quadrant loop ileostomy is present; orally administered contrast is visualized coursing into the afferent ileostomy limb. Moderate-sized fat-containing parastomal hernia measures 5.6 x 4.0 cm (series 2, image 100). No significant fat stranding or free fluid within the hernia sac. No evidence of upstream bowel obstruction. Radiodensity seen posterior to the anus, may represent seton. Peritoneum and retroperitoneum: No free fluid or free air. Lymph Nodes: No abdominal or pelvic lymphadenopathy. Uterus and adnexa: Unremarkable. Visualized musculoskeletal structures: No acute fracture or destructive osseous lesion is identified. Small sclerotic focus in the right femoral head, may represent bone island. IMPRESSION: 1. No evidence of active infectious/inflammator y process within the abdomen or pelvis. 2. 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 No evidence of obstruction. MACRO: None Normal [facility] Consultson 07-17-2021 [employer] Authentication Interface Message Text Attestation signed by Heather Archuleta MD at 07/17/2021 3:02 PM Teaching Physician Note: I reviewed the resident's documentation and discussed the patient with the resident on the date of this note. I agree with the resident's medical decision making as documented in the resident's note. Heather Archuleta MD DEPARTMENT OF SURGERY CONSULT - ACUTE CARE SURGERY Rola Aguilar [id number] Chief Complaint/Reason for Consultation Stomal Prolapse from RLQ ostomy with acutely increasing pain localized to ostomy site, decreased ostomy output, and recently diagnosed parastomal hernia. History (HPI) Rola Aguilar is a 25 year old female with a h/o Crohn's disease (s/p diverting loop ileostomy 08/2018) c/b perianal fistula and recurrent painful stomal prolapse who presents with a c/o increasing RLQ pain surrounding ostomy site and recently diagnosed parastomal hernia. Per patient, for past 1-1.5 weeks, she has noticed increasing pain around and leakage from ostomy site. She also noticed increased foul smell and bloody mucus per ostomy which prompted her to go to the ED at [facility] on Thursday 07/12. Workup at OSH revealed parastomal hernia and patient was counseled to seek definitive management with her colorectal surgeon and return to the ED if she noted acute changes in the meantime. Upon waking this AM, patient noticed acutely increased pain surrounding the stoma site as well as a decrease in ostomy output over the course of the day of roughly 80%. She also describes prolapsed bowel as becoming slightly darker in distal 1/3 when she is experiencing severe pain. PMH: Crohn's Disease (s/p DLI c/b perianal fistula) PSH: DLI Seton drain for perianal fistula Medications: No current outpatient medications Allergies: NKDA Family History: family history is not on file. Social History: Non-smoker EtOH socially No recreational drug use Review of Systems: negative except per HPI PHYSICAL EXAMINATION BP 106/64 Pulse (!) 101 Temp 98.5 ???F (36.9 ???C) (Oral) Resp 20 SpO2 100% There is no height or weight on file to calculate BMI. General appearance: healthy, alert, mild distress, cooperative Skin: negative Head: Normocephalic. No masses, lesions, tenderness or abnormalities Nose/Sinuses: negative Oropharynx: negative Neck: negative Lungs: Non-labored breathing on room air Heart: rate is regular Abdomen: Abdomen soft,No masses, No organomegaly. TTP surrounding stomal site in RLQ. Stomal hernia is approximately 8cm in length and appears pink, patent, and well perfused with stool in ostomy. Extremities: Extremities normal. No deformities, edema, or skin discoloration Neuro: Intact and symmetric. Laboratory Values and Test Results Results for orders placed or performed during the hospital encounter of 07/16/21 BASIC METABOLIC PANEL Result Value Ref Range Glucose 87 68 - 110 mg/dL Sodium 136 135 - 148 mmol/L Potassium 3.8 3.3 - 5.3 mmol/L Carbon Dioxide 24 21 - 30 mmol/L Chloride 102 97 - 111 mmol/L Blood Urea Nitrogen 7 (L) 8 - 22 mg/dL Creatinine 0.79 0.50 - 1.10 mg/dL Calcium 9.4 8.4 - 10.4 mg/dL Anion Gap 14 10 - 20 Estimated GFR (CKD-EPI) 104 >=60 mL/min/1.73sqm PROTHROMBIN TIME AND INR Result Value Ref Range Protime 12.0 9.7 - 12.9 sec INR 1.06 0.90 - 1.10 ERYTHROCYTE SEDIMENTATION RATE Result Value Ref Range Sed Rate (ESR) 90 (H) <=20 mm/Hr C-REACTIVE PROTEIN Result Value Ref Range C-Reactive Protein 2.7 (H) <0.8 mg/dL LACTATE WITH REPEAT ED Result Value Ref Range Lactate 1.2 0.5 - 2.0 mmol/L CBC WITH DIFFERENTIAL Result Value Ref Range WBC 7.3 4.5 - 11.5 K/uL RBC 4.66 4.00 - 5.20 M/uL Hemoglobin 12.5 12.0 - 15.0 g/dL Hematocrit 38.1 36.0 - 46.0 % MCV 82 80 - 100 fL MCH 26.8 26.0 - 34.0 pg MCHC 32.7 32.0 - 35.9 g/dL Platelet 327 150 - 400 K/uL RDW-CV 15.2 (H) 11.5 - 14.5 % MPV 8.3 7.5 - 11.2 fL Neutrophils 77.9 (H) 31.0 - 76.0 % Neutrophil # 5.69 1.50 - 8.00 K/uL Lymphocytes 15.2 (L) 24.0 - 44.0 % Lymphocytes # 1.11 1.00 - 4.80 K/uL Monocytes 5.1 2.0 - 11.0 % Monocyte # 0.37 0.20 - 1.00 K/uL Eosinophil 1.7 0.1 - 4.0 % Eosinophil # 0.12 0.00 - 0.70 K/uL Basophils 0.2 <=1.9 % Basophil # 0.02 0.00 - 0.20 K/uL MDW 19 <=20 Imaging: CT ABDOMEN/PELVIS W/ CONTRAST Result Date: 07/17/2021 EXAMINATION: CT ABDOMEN/PELVIS W/ CONTRAST CLINICAL HISTORY: Reason for Exam: abd pain ASSOCIATED DIAGNOSIS: abd pain TECHNOLOGISTS NOTE: COMPARISON: None TECHNIQUE: Contiguous axial images were obtained through the abdomen and pelvis from the level of the diaphragmatic domes through the pubic symphysis following bolus administration of intravenous contrast. MPR sagittal and coronal reconstructions were obtained from the axial data. Before infusion of i (more content not included)... Normal [facility] ED Provider Noteson 07-17-20 [employer] Authentication Interface Message Text Sign out from previous provider: CC for SB at 1:05 AM 25 year old female with PMH Crohns with ostomy (3 yr ago) who presents for severe periostomy abd pain. Decreased output. Normal WBC. Normal lactate. Surgery requests CTAP with IV/PO. Dilaudid. [ ] CTAP IV and PO [ ] CRS recs INTERVAL UPDATES Patient remained hemodynamically stable under my care in the ED. CTAP demonstrates fat-containing parastomal hernia. No bowel involvement. Surgery did not recommend emergent operative management. Discussed results with patient. She expressed concern that her 10cm prolapsed ostomy becomes dusky and painful when she stands. The distal third becomes purple with scant capillary bleeding sometimes. Information relayed to surgery team. CRS evaluated imaging and patient at bedside. Patient wants her ostomy reversed entirely. CRS recommended outpatient follow up in their clinic on Saturday to discuss options for ostomy revision. They also plan to have patient see ostomy and wound care nurses in clinic at same time. Patient was given ED return precautions and discharged home in stable condition. ED Course as of Jul 17 849 Sun Jul 16, [id number] No leukocytosis or anemia. PLT wnl COMPLETE BLOOD COUNT W/DIFF (RAPID RESPONSE LABS)(!): WBC 7.3 RBC 4.66 Hemoglobin 12.5 Hematocrit 38.1 MCV 82 MCH 26.8 MCHC 32.7 Platelet 327 RDW-CV% 15.2(!) MPV 8.3 Neutrophils 77.9(!) Neutrophil # 5.69 Lymphocytes 15.2(!) Lymph Absolute 1.11 Monocytes 5.1 Monocyte Absolute 0.37 Eosinophil 1.7 Eosinophil Absolute 0.12 Basophils 0.2 Basophil # 0.02 MDW 19 [SB] 2251 Lactate wnl Lactic Acid (With Repeat for ED): Lactate 1.2 [SB] 2312 BMP without electrolyte abnormalities or DARREN Basic Metabolic Panel(!): Glucose 87 Sodium 136 Potassium 3.8 Carbon Dioxide 24 Chloride 102 BUN 7(!) Creatinine 0.79 Calcium 9.4 Anion Gap 14 Estimated GFR 104 [SB] 2313 Elevated inflammatory markers C-Reactive Protein (CRP)(!): C-Reactive Protein 2.7(!) [SB] 2313 Elevated inflammatory markers Erythrocyte Sedimentation Rate (ESR)(!): Sed Rate (ESR) 90(!) [SB] Mon Jul 17, 2021 0116 Potassium: 3.6 [CC] 0245 ??? IMPRESSION: 1. No evidence of active infectious/inflammator y process within the abdomen or pelvis. 2. 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 No evidence of obstruction. CT Abdomen/Pelvis With Contrast [CC] 0246 Messaging surgery [CC] 0327 D/w patient. She describes that ostomy turns dusky when patient has pain. Ostomy created three years ago at [facility]. She was told she would have it for three months. Now, no surgeon wishes to reverse it. [CC] ED Course User Index [CC] Ange Duenas MD [SB] Luli Fish, DO -------- IMPRESSION AND DISPOSITION ------ Clinical Impression Diagnosis Comment Abdominal pain, unspecified abdominal location [R10.9] Crohn's disease with complication, unspecified gastrointestinal tract location (HCC) [K50.919] Parastomal hernia without obstruction or gangrene [K43.5] Intestinal stoma prolapse (HCC) [K94.19] Disposition: Home Patient Condition: stable The patient has received a medical screening examination and within reasonable clinical confidence an emergency medical condition has not been identified. Counseling: Spoke with the patient and discussed today's findings, in addition to providing specific details for the plan of care and expected course. They were given the opportunity to ask questions. Discussed return precautions and importance of follow-up. Advised to follow-up with colorectal surgery. Advised to return to the ED for changing or worsening symptoms, new symptoms, complaint specific precautions, and precautions listed on the discharge paperwork. Evaluated by EM attending Edwin James MD, PGY2 Emergency Medicine Resident Pager: [phone] Normal [facility] LACTATE WITH REPEAT EDon CR LACT 1.2 mmol/L Normal 0.5-2.0 [facility] Comment on above: Performed By: #### L ACTREPEAT #### [facility] [address] [place] [address], POTASSIUMon 07-17-2021 Potassium [Moles/Vol] 3.6 mmol/L Normal 3.3-5.3 [facility] Comment on above: Performed By: #### K #### [facility] [address] [place] [address], BASIC METABOLIC PANELon 06-24 Anion gap [Moles/Vol] 14 mmol/L Normal 10-20 [facility] Comment on above: Performed By: #### C RP, CH8 #### [facility] [address] [place] [address], Calcium [Mass/Vol] 9.4 mg/dL Normal 8.4-10.4 [facility] Comment on above: Performed By: #### C RP, CH8 #### [facility] [address] [place] [address], Chloride [Moles/Vol] 102 mmol/L Normal 97-111 [facility] Comment on above: Performed By: #### C RP, CH8 #### [facility] [address] [place] [address], CO2 [Moles/Vol] 24 mmol/L Normal 21-30 [facility] Comment on above: Performed By: #### C RP, CH8 #### [facility] [address] [place] [address], Creatinine [Mass/Vol] 0.79 mg/dL Normal 0.50-1.10 [facility] Comment on above: Performed By: #### C RP, CH8 #### [facility] [address] [place] [address], ESTIMATED GFR (CKD-EPI) 104 mL/min/1.73sqm Normal >=60 [facility] Comment on above: Performed By: #### Lucrecia FRYE, CH8 #### [facility] [address] [place] [address], Glucose [Mass/Vol] 87 mg/dL Normal 68-110 [facility] Comment on above: Performed By: #### Lucrecia FRYE, CH8 #### [facility] [address] [place] [address], Potassium [Moles/Vol] 3.8 mmol/L Normal 3.3-5.3 [facility] Comment on above: Result Comment: Hemo lysis present Performed By: #### Lucrecia FRYE, CH8 #### [facility] [address] [place] [address], Sodium [Moles/Vol] 136 mmol/L Normal 135-148 [facility] Comment on above: Performed By: #### Lucrecia FRYE, CH8 #### [facility] [address] [place] [address], Urea nitrogen [Mass/Vol] 7 mg/dL Low 8-22 [facility] Comment on above: Performed By: #### Lucrecia FRYE, CH8 #### [facility] [address] [place] [address], C-REACTIVE PROTEINon 021 CRP 2.7 mg/dL High <0.8 [facility] Comment on above: Performed By: #### Lucrecia FRYE, CH8 #### [facility] [address] [place] [address], CBC WITH DIFFERENTIALon 06-24 Basophils (Bld) [#/Vol] 0.02 10*3/uL Normal 0.00-0.20 [facility] Comment on above: Performed By: #### Philipp SALINAS, CBCDSAT #### [facility] [address] [place] [address], Basophils/100 WBC (Bld) 0.2 % Normal <=1.9 [facility] Comment on above: Performed By: #### Philipp SALINAS, CBCDSAT #### [facility] [address] [place] [address], Eosinophils (Bld) [#/Vol] 0.12 10*3/uL Normal 0.00-0.70 [facility] Comment on above: Performed By: #### E SR, CBCDSAT #### [facility] [address] [place] [address], Eosinophils/100 WBC (Bld) 1.7 % Normal 0.1-4.0 [facility] Comment on above: Performed By: #### E SR, CBCDSAT #### [facility] [address] [place] [address], Erythrocyte distribution width (RBC) [Ratio] 15.2 % High 11.5-14.5 [facility] Comment on above: Performed By: #### E , CBCDSAT #### [facility] [address] [place] [address], Hematocrit (Bld) [Volume fraction] 38.1 % Normal 36.0-46.0 [facility] Comment on above: Performed By: #### E , CBCDSAT #### [facility] [address] [place] [address], Hemoglobin (Bld) [Mass/Vol] 12.5 g/dL Normal 12.0-15.0 [email or web address] Comment on above: Performed By: #### E , CBCDSAT #### [facility] [address] [place] [address], Lymphocytes (Bld) [#/Vol] 1.11 10*3/uL Normal 1.00-4.80 [facility] Comment on above: Performed By: #### E SR, CBCDSAT #### [facility] [address] [place] [address], Lymphocytes/100 WBC (Bld) 15.2 % Low 24.0-44.0 [email or web address] Comment on above: Performed By: #### E SR, CBCDSAT #### [facility] [address] [place] [address], MCH (RBC) [Entitic mass] 26.8 pg Normal 26.0-34.0 [facility] Comment on above: Performed By: #### E SR, CBCDSAT #### [facility] [address], [place], MCHC (RBC) [Mass/Vol] 32.7 g/dL Normal 32.0-35.9 [facility] Comment on above: Performed By: #### E SR, CBCDSAT #### [facility] [address], [place], MCV (RBC) [Entitic vol] 82 fL Normal 80-100 [facility] Comment on above: Performed By: #### E SR, CBCDSAT #### [facility] [address], [place], MONOCYTE DISTRIBUTION WIDTH 19 Normal <=20 [facility] Comment on above: Performed By: #### E SR, CBCDSAT #### [facility] [address], [place], Monocytes (Bld) [#/Vol] 0.37 10*3/uL Normal 0.20-1.00 [facility] Comment on above: Performed By: #### E SR, CBCDSAT #### [facility] [address], [place], Monocytes/100 WBC (Bld) 5.1 % Normal 2.0-11.0 [facility] Comment on above: Performed By: #### E SR, CBCDSAT #### [facility] [address], [place], Neutrophils (Bld) [#/Vol] 5.69 10*3/uL Normal 1.50-8.00 [facility] Comment on above: Performed By: #### E SR, CBCDSAT #### [facility] [address], [place], Neutrophils/100 WBC (Bld) 77.9 % High 31.0-76.0 [facility] Comment on above: Performed By: #### E SR, CBCDSAT #### S PATHOLOGY LABORATORY [address], [place], Platelet mean volume (Bld) [Entitic vol] 8.3 fL Normal 7.5-11.2 [email or web address] Comment on above: Performed By: #### E SR, CBCDSAT #### S PATHOLOGY LABORATORY [address], [place], Platelets (Bld) [#/Vol] 327 10*3/uL Normal 150-400 [email or web address] Comment on above: Performed By: #### E SR, CBCDSAT #### [facility] [address], [place], RBC (Bld) [#/Vol] 4.66 10*6/uL Normal 4.00-5.20 [email or web address] Comment on above: Performed By: #### E SR, CBCDSAT #### [facility] [address], [place], WBC (Bld) [#/Vol] 7.3 10*3/uL Normal 4.5-11.5 [email or web address] Comment on above: Performed By: #### E SR, CBCDSAT #### S PATHOLOGY LABORATORY [address], [place], ED Provider Noteson 07-16-20 [employer] Coordinator Authentication Interface Message Text EMERGENCY DEPARTMENT - VISIT NOTE -------- HISTORY OF PRESENT ILLNESS ---- Chief Complaint Patient presents with * Abdominal pain States she has a hernia pushing on her ileostomy that is causing pain. Pt was told to consult surgery. Pt came to the ED due to increased pain. Precipitator Supervisor: not needed - patient preferred language is Iraqi. The history is provided by the Patient. Rola Aguilar is a 25 year old female with H crohn's s/p lap loop ileostomy 2019 ([place]) presenting to the ED for worsening pain around ostomy Reported that she went to OSH on Saturday due to pain in ostomy. Got CT and was told she has non obstructing hernia. Recommended if pain got more severe to come to [facility]. Patient pain never improved and pain got worse today so she came to [facility]. No fever, chills. Has nausea but no vomiting. Noticed some bright blood in stool. Decrease output and more loose. Onset: A week from last Saturday but today got very bad Duration: constant on and off Context: NA Location: Around ostomy Radiation: Does not radiate Severity: Very severe Alleviating Factors: Nothing Aggravating Factors: Everything Associated Signs and Symptoms: Nausea, decreased output and loose stool History of Similar Episodes: months ago Last smoking acouple years ago. Rarely alcohol. Only THC no other drugs REVIEW OF SYSTEMS Review of Systems Constitutional: Negative for chills and fever. HENT: Negative for congestion and sore throat. Eyes: Negative for visual disturbance. Respiratory: Negative for cough and shortness of breath. Cardiovascular: Negative for chest pain, palpitations and leg swelling. Gastrointestinal: Positive for abdominal pain, blood in stool and nausea. Negative for vomiting. Genitourinary: Negative for dysuria, hematuria and vaginal discharge. Musculoskeletal: Negative for myalgias. Skin: Negative for rash. Neurological: Negative for dizziness and headaches. PAST HISTORY Pertinent Past History: Crohn's Pertinent Family History: Colon cancer Surgical history COLONOSCOPY 08/2016 PILONIDAL CYST/SINUS EXCISION 06/2016 Ostomy in 2019 Pertinent Social History: Per HPI PHYSICAL EXAM BP 106/64 Pulse (!) 101 Temp 98.5 ???F (36.9 ???C) (Oral) Resp 20 SpO2 100% Physical Exam Vitals reviewed. Constitutional: General:In mild distress. tearful Appearance: Not toxic-appearing. HENT: Head: Normocephalic and atraumatic. Eyes: Extraocular Movements: Extraocular movements intact. Cardiovascular: Rate and Rhythm: Tachycardiac Heart sounds: No murmur heard. Pulmonary: Effort: No respiratory distress. Breath sounds: No wheezing. Abdominal: Tenderness: Abd tenderness. Image in media. No rebound or guarding. Loose stool noted leaking. [place] stoma. prolapsed Musculoskeletal: Right lower leg: No edema. Left lower leg: No edema. Skin: General: Skin is warm. Rash noted on bilateral legs Neurological: Mental Status: alert and oriented to person, place, and time Psychiatric: Mood and Affect: Mood normal. Tearful Behavior: Behavior normal. Thought Content: Thought content normal. Judgment: Judgment normal. MEDICAL DECISION MAKING and ED COURSE Nursing triage and assessment notes reviewed and incorporated Interpretation of Results: As Course: as [facility] ED Course as of Jul 17 1812 Sun Jul 16, [id number] No leukocytosis or anemia. PLT wnl COMPLETE BLOOD COUNT W/DIFF (RAPID RESPONSE LABS)(!): WBC 7.3 RBC 4.66 Hemoglobin 12.5 Hematocrit 38.1 MCV 82 MCH 26.8 MCHC 32.7 Platelet 327 RDW-CV% 15.2(!) MPV 8.3 Neutrophils 77.9(!) Neutrophil # 5.69 Lymphocytes 15.2(!) Lymph Absolute 1.11 Monocytes 5.1 Monocyte Absolute 0.37 Eosinophil 1.7 Eosinophil Absolute 0.12 Basophils 0.2 Basophil # 0.02 MDW 19 [SB] 225 Lactate wnl Lactic Acid (With Repeat for ED): Lactate 1.2 [SB] 2312 BMP without electrolyte abnormalities or DARREN Basic Metabolic Panel(!): Glucose 87 Sodium 136 Potassium 3.8 Carbon Dioxide 24 Chloride 102 BUN 7(!) Creatinine 0.79 Calcium 9.4 Anion Gap 14 Estimated GFR 104 [SB] 2313 Elevated inflammatory markers C-Reactive Protein (CRP)(!): C-Reactive Protein 2.7(!) [SB] 2313 Elevated inflammatory markers Erythrocyte Sedimentation Rate (ESR)(!): Sed Rate (ESR) 90(!) [SB] Mon Jul 17, 2021 0116 Potassium: 3.6 [CC] 0245 ??? IMPRESSION: 1. No evidence of active infectious/inflammator y process within the abdomen or pelvis. 2. 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 No evidence of obstruction. CT Abdome (more content not included)... Normal [facility] ERYTHROCYTE SEDIMENTATION RA Chris 07-16-2021 ESR (Bld) [Velocity] 90 mm/h High <=20 [facility] Comment on above: Performed By: #### E SR, CBCDSAT #### [facility] PATH[facility] [address] [place] [address], PROTHROMBIN TIME AND INRon 1 INR Coag (PPP) [Relative time] 1.06 {INR} Normal 0.90-1.10 [facility] Comment on above: Performed By: #### P T #### S PATHOLOGY LABORATORY [address], [place], PT Coag (PPP) [Time] 12.0 s Normal 9.7-12.9 [facility] Comment on above: Performed By: #### P T #### [facility] PATH[facility] [address] [place] [address], CBC Auto Differentialon 11- Basophils (Bld) [#/Vol] 0.10 10*3/uL [facility], [place] Basophils/100 WBC (Bld) 1 % 0 - 2 % [place] Differential Type YES [place] Eosinophils (Bld) [#/Vol] 0.10 10*3/uL [facility], [place] Eosinophils/100 WBC (Bld) 1 % 0 - 5 % [place] Erythrocyte distribution width (RBC) [Ratio] 14.7 % 12.1 - 15.2 % [place] Hematocrit (Bld) [Volume fraction] 38.2 % 36 - 46 % [place] Hemoglobin (Bld) [Mass/Vol] 12.7 g/dL 12 - 16 g/dL [place] Interpretation and review of laboratory results Abnormal [place] Lymphocytes (Bld) [#/Vol] 0.60 10*3/uL [place] Lymphocytes/100 WBC (Bld) 6 % Low 15 - 40 % [place] MCH (RBC) [Entitic mass] 26.7 pg 26 - 34 pg [place] MCHC (RBC) [Mass/Vol] 33.3 g/dL 31 - 37 g/dL [place] MCV (RBC) [Entitic vol] 80.3 fL 80 - 100 fL [place] Monocytes (Bld) [#/Vol] 0.50 10*3/uL [place] Monocytes/100 WBC (Bld) 5 % 4 - 8 % [place] Platelet mean volume (Bld) [Entitic vol] NOT REPORTED 6 - 12 fL [place] Platelets (Bld) [#/Vol] NOT REPORTED [place] Platelets (Bld) [#/Vol] 334 10*3/uL [place] RBC (Bld) [#/Vol] 4.76 10*6/uL 4 - 5.2 m/uL [place], [place] RBC morphology finding Nom (Bld) NOT REPORTED [place] Segmented neutrophils/100 WBC (Bld) 87 % High 47 - 75 % [place] Segs Absolute 7.90 High [place] WBC (Bld) [#/Vol] NOT REPORTED per 100 WBC [place] WBC (Bld) [#/Vol] 9.1 10*3/uL [place] WBC Morphology NOT REPORTED [place] Comprehensive Metabolic Pane l w/ Reflex to MGon 08-10-2020 Albumin [Mass/Vol] 4.8 g/dL 3.5 - 5.2 g/dL [place] Albumin/Globulin [Mass ratio] NOT REPORTED [place] ALP [Catalytic activity/Vol] 102 U/L 35 - 104 U/L [place] ALT [Catalytic activity/Vol] 28 U/L 5 - 33 U/L [place] Anion gap [Moles/Vol] 9 mmol/L 9 - 17 mmol/L [place] AST [Catalytic activity/Vol] 21 U/L <32 [place] Bilirubin Ql (U) 0.34 mg/dL 0.3 - 1.2 mg/dL [place] Bun/Cre Ratio 17 [place] Calcium [Mass/Vol] 9.8 mg/dL 8.6 - 10. 4 mg/dL [place] Chloride [Moles/Vol] 106 mmol/L 98 - 10 7 mmol/L [place] CO2 [Moles/Vol] 22 mmol/L 20 - 31 mmol/L [place] Creatinine [Mass/Vol] 0.69 mg/dL 0.5 - 0.9 mg/dL [place] GFR >60 >60 mL/min [place] GFR Non- >60 >60 mL/min [place] GFR/1.73 sq M predicted among non-blacks MDRD (S/P/Bld) [Vol rate/Area] NOT REPORTED [place] GFR/1.73 sq M predicted among non-blacks MDRD (S/P/Bld) [Vol rate/Area] [place] Comment on above: Average GFR for 20-2 9 years old: 116 mL/min/1.73sq m Chronic Kidney Disease: <60 mL/min/1.73sq m Kidney failure: <15 mL/min/1.73sq m eGFR calculated using average adult body mass. Additional eGFR calculator available at: http://www.[employer] Gu[employer]/multiple_crcl_2012.htm Glucose [Mass/Vol] 108 mg/dL High 70 - 99 mg/dL [place] Interpretation and review of laboratory results Abnormal [place] Potassium [Moles/Vol] 3.9 mmol/L 3.7 - 5.3 mmol/L [place] Protein [Mass/Vol] 8.5 g/dL High 6.4 - 8.3 g/dL [place] Sodium [Moles/Vol] 137 mmol/L 135 - 144 mmol/L [place] Urea nitrogen [Mass/Vol] 12 mg/dL 6 - 20 mg/dL [place] HCG Qualitative, Serumon hCG Qual Negative NEGATIVE [place] Comment on above: Specimens with hCG l evels near the threshold of the test (25 mIU/mL) may give a negative or indeterminate result. In such cases, another test should be performed with a new specimen in 48-72 hours. If early is suspected clinically in this setting, correlation with quantitative serum b-hCG level is suggested. [facility] the use of plasma for this test. This has not been cleared or approved by the U.S. Food and Drug Administration. The FDA has determined that such clearance is not necessary. Otheron 08-10-2020 Immature granulocytes (Bld) [#/Vol] NOT REPORTED 0 % [place] CBC Auto Differentialon Basophils (Bld) [#/Vol] 0.00 10*3/uL [place] Basophils/100 WBC (Bld) 0 % 0 - 2 % [place] Differential Type YES [place] Eosinophils (Bld) [#/Vol] 0.10 10*3/uL [place] Eosinophils/100 WBC (Bld) 2 % 0 - 5 % [place] Erythrocyte distribution width (RBC) [Ratio] 13.8 % 12.1 - 15.2 % [place] Hematocrit (Bld) [Volume fraction] 36.6 % 36 - 46 % [place] Hemoglobin (Bld) [Mass/Vol] 12.2 g/dL 12 - 16 g/dL [place] Interpretation and review of laboratory results Abnormal [place] Lymphocytes (Bld) [#/Vol] 1.00 10*3/uL [place] Lymphocytes/100 WBC (Bld) 13 % Low 15 - 40 % [place] MCH (RBC) [Entitic mass] 27.2 pg 26 - 34 pg [place] MCHC (RBC) [Mass/Vol] 33.3 g/dL 31 - 37 g/dL [place] MCV (RBC) [Entitic vol] 81.7 fL 80 - 100 fL [place] Monocytes (Bld) [#/Vol] 0.60 10*3/uL [place] Monocytes/100 WBC (Bld) 8 % 4 - 8 % [place] Platelet mean volume (Bld) [Entitic vol] NOT REPORTED 6 - 12 fL [place] Platelets (Bld) [#/Vol] 276 10*3/uL [place] Platelets (Bld) [#/Vol] NOT REPORTED [place] RBC (Bld) [#/Vol] 4.48 10*6/uL 4 - 5.2 m/uL [place] RBC morphology finding Nom (Bld) NOT REPORTED [place] Segmented neutrophils/100 WBC (Bld) 77 % High 47 - 75 % [place] Segs Absolute 5.70 [place] WBC (Bld) [#/Vol] NOT REPORTED per 100 WBC [place] WBC (Bld) [#/Vol] 7.4 10*3/uL [place] WBC Morphology NOT REPORTED [place] Comprehensive Metabolic Pane chloe 03-01-2020 Albumin [Mass/Vol] 4.1 g/dL 3.5 - 5.2 g/dL [place] Albumin/Globulin [Mass ratio] NOT REPORTED [place] ALP [Catalytic activity/Vol] 89 U/L 35 - 104 U/L [place] ALT [Catalytic activity/Vol] 22 U/L 5 - 33 U/L [place] Anion gap [Moles/Vol] 11 mmol/L 9 - 17 mmol/L [place] AST [Catalytic activity/Vol] 19 U/L <32 [place] Bilirubin Ql (U) 0.32 mg/dL 0.3 - 1.2 mg/dL [place] Bun/Cre Ratio 15 [place] Calcium [Mass/Vol] 9.3 mg/dL 8.6 - 10. 4 mg/dL [place] Chloride [Moles/Vol] 107 mmol/L 98 - 10 7 mmol/L [place] CO2 [Moles/Vol] 22 mmol/L 20 - 31 mmol/L [place] Creatinine [Mass/Vol] 0.72 mg/dL 0.5 - 0.9 mg/dL [place] GFR >60 >60 mL/min [place] GFR Non- >60 >60 mL/min [place] GFR/1.73 sq M predicted among non-blacks MDRD (S/P/Bld) [Vol rate/Area] [place] Comment on above: Average GFR for 20-2 9 years old: 116 mL/min/1.73sq m Chronic Kidney Disease: <60 mL/min/1.73sq m Kidney failure: <15 mL/min/1.73sq m eGFR calculated using average adult body mass. Additional eGFR calculator available at: http://www.[employer]/multiple_crcl_2012.htm GFR/1.73 sq M predicted among non-blacks MDRD (S/P/Bld) [Vol rate/Area] NOT REPORTED [place] Glucose [Mass/Vol] 110 mg/dL High 70 - 99 mg/dL [place] Interpretation and review of laboratory results Abnormal [place] Potassium [Moles/Vol] 3.6 mmol/L Low 3.7 - 5.3 mmol/L [place] Protein [Mass/Vol] 7.9 g/dL 6.4 - 8.3 g/dL [place] Sodium [Moles/Vol] 140 mmol/L 135 - 144 mmol/L [place] Urea nitrogen [Mass/Vol] 11 mg/dL 6 - 20 mg/dL [place] Otheron 03-01-2020 Immature granulocytes (Bld) [#/Vol] NOT REPORTED [facility], [place] CBC AUTO DIFFon 07-21-2019 Basophils (Bld) [#/Vol] 0.1 103/ul Normal 0.0-0.1 [facility] Comment on above: Performed By: #### C BC #### [facility] [address] [place], [place] [id number] Crissy Suzy Basophils/100 WBC (Bld) 0.8 % Normal 0.2-2.0 [facility] Comment on above: Performed By: #### C BC #### [facility] [address] [place] [address] Crissy Suzy Eosinophils (Bld) [#/Vol] 0.4 103/ul Normal 0.0-0.7 [facility] Comment on above: Performed By: #### C BC #### [facility] [address] [place] [address] Crissy Suzy Eosinophils/100 WBC (Bld) 5.2 % Normal 0.9-7.0 [facility] Comment on above: Performed By: #### C BC #### [facility] [address] [place] [address] Crissy Suzy Erythrocyte distribution width (RBC) [Ratio] 15.0 % Normal 11.0-15.0 [facility] Comment on above: Performed By: #### C BC #### [facility] [address] [place] [address] Crissy Suzy Hematocrit (Bld) [Volume fraction] 41.0 % Normal 36.0-48.0 [facility] Comment on above: Performed By: #### C BC #### [facility] [address] [place] [address] Crissy Suzy Hemoglobin (Bld) [Mass/Vol] 13.3 g/dL Normal 12.0-16.0 [facility] Comment on above: Performed By: #### C BC #### [facility] [address] [place] [address] Crissy Suzy IG # 0.01 10e3/ul Normal 0.00-0.03 [facility] Comment on above: Performed By: #### C BC #### [facility] [address] [id number] Crissy Suzy IG % 0.1 % Normal 0.0-0.5 [facility] Comment on above: Performed By: #### C BC #### [facility] [address] [place], [place] [phone] Crissy Suzy Lymphocytes (Bld) [#/Vol] 1.2 103/ul Normal 1.2-3.8 [facility] Comment on above: Performed By: #### C BC #### [facility] [address] [place], [place] [phone] Crissy Suzy Lymphocytes/100 WBC (Bld) 15.9 % Critically low 20.5-60.0 [facility] Comment on above: Performed By: #### C BC #### [facility] [address] [place], [place] [phone] Crissy Suzy MANUAL DIFF REQ NO Normal [facility] Comment on above: Performed By: #### C BC #### [facility] [address] [place], [place] [phone] Crissy Suzy MCH (RBC) [Entitic mass] 27.7 pg Normal 26.7-34.0 [facility] Comment on above: Performed By: #### C BC #### [facility] [address] [place], [place] [phone] Crissy Suzy MCHC (RBC) [Mass/Vol] 32.4 g/dL Normal 29.9-35.2 [facility] Comment on above: Performed By: #### C BC #### [facility] [address] [place], [place] [phone] Crissy Suzy MCV (RBC) [Entitic vol] 85.4 fL Normal 81.0-99.0 [facility] Comment on above: Performed By: #### C BC #### [facility] [address] [place], [place] [phone] Crissy Suzy Monocytes (Bld) [#/Vol] 0.4 103/ul Normal 0.3-0.8 [facility] Comment on above: Performed By: #### C BC #### [facility] [address], [place] [address] Crissy Suzy Monocytes/100 WBC (Bld) 5.3 % Normal 1.7-12.0 [facility] Comment on above: Performed By: #### C BC #### [facility] [address], [place] [address] Crissy Suzy Neutrophils (Bld) [#/Vol] 5.4 103/ul Normal 1.4-6.5 [facility] Comment on above: Performed By: #### C BC #### [facility] [address], [place] [address] Crissy Suzy Neutrophils/100 WBC (Bld) 72.7 % Normal 43.0-75.0 [facility] Comment on above: Performed By: #### C BC #### [facility] [address] [place] [address] Crissy Suzy Platelet mean volume (Bld) [Entitic vol] 10.6 fL Normal 9.5-13.5 [facility] Comment on above: Performed By: #### C BC #### [facility] [address] [place] [phone] Crissy Suzy Platelets (Bld) [#/Vol] 275 103/ul Normal 150-450 [facility] Comment on above: Performed By: #### C BC #### [facility] [address] [place] [address] Crissy Suzy RBC (Bld) [#/Vol] 4.80 106/ul Normal 4.20-5.40 [facility] Comment on above: Performed By: #### C BC #### [facility] [address], [place] [address] Crissy Suzy WBC (Bld) [#/Vol] 7.5 103/ul Normal 4.0-11.0 [facility] Comment on above: Performed By: #### C BC #### [facility] [address] [place] [address] Crissy Suzy ER URINE PROFILEon 9 Bilirubin [Mass/Vol] Negative Normal NEGATIVE [facility] Comment on above: Performed By: #### E RUR, UMICRO #### [facility] [address] [place] [address] Crissy Suzy BLOOD SMALL Normal NEGATIVE [facility] Comment on above: Performed By: #### ALYSSA KRUEGER #### [facility] [address] [place] [address] Crissy Suzy Clarity (U) CLEAR Normal [facility] Comment on above: Performed By: #### ALYSSA KRUEGER #### [facility] [address] [place] [address] Crissy Suzy Color (U) LT. YELLOW Normal YELLOW [facility] Comment on above: Performed By: #### ALYSSA KRUEGER #### [facility] [address] [place] [address] Crissy Suzy ERUAHD A micrscopic examination will be performed if indicated. Normal [facility] Comment on above: Performed By: #### ALYSSA KRUEGER #### [facility] [address] [place] [address] Crissy Suzy Glucose [Mass/Vol] Negative Normal NEGATIVE [facility] Comment on above: Performed By: #### ALYSSA KRUEGER #### [facility] [address] [place] [address] Crissy Suzy Ketones Ql (U) Negative Normal NEGATIVE [facility] Comment on above: Performed By: #### ALYSSA KRUEGER #### [facility] [address] [place] [address] Crissy Suzy Nitrite Ql (U) Negative Normal NEGATIVE [facility] Comment on above: Performed By: #### CHUCKIE KRUEGERRO #### [facility] [address] [place] [address] Crissy Suzy pH (Bld) 5.5 Normal 5-9 [facility] Comment on above: Performed By: #### ALYSSA KRUEGER #### [facility] [address] [place] [address] Crissy Suzy Protein (U) [Mass/Vol] Negative Normal [facility] Comment on above: Performed By: #### E RUR, UMICRO #### [facility] [address], [place] [address] Crissy Almonte SPEC GRAVITY >=1.030 Normal 1.005-<=1.025 [facility] Comment on above: Performed By: #### E RUR, UMICRO #### [facility] [address] [place], [place] [phone] Crissystephania [place]ob[place]en UR MICRO IND INDICATED Normal [facility] Comment on above: Performed By: #### E RUR, UMICRO #### [facility] [address] [place] [address] Crissystephania Almonte Urobilinogen Qn (U) 0.2 EU/dl Normal [facility] Comment on above: Performed By: #### E GRAEME, UMICRO #### [facility] [address] [place], [place] [phone] Crissy Suzy WBC (Bld) [#/Vol] Negative Normal NEGATIVE [facility] Comment on above: Performed By: #### E GRAEME, UMICRO #### [facility] [address] [place] [address] Crissy Suzy LACTATE/LACTIC ACIDon 2018 Lactate [Moles/Vol] 0.9 mmol/L Normal 0.7-2.1 [facility] Comment on above: Performed By: #### L ACT #### [facility] [address] [place], [place] [phone] Crissy Suzy LIVER PROFILEon 07-21-2019 Albumin [Mass/Vol] 3.9 g/dL Normal 3.5-5.0 [facility] Comment on above: Performed By: #### B MP, LIVER #### [facility] [address] [place], [place] [phone] Crissy Suzy Albumin/Globulin [Mass ratio] 0.8 {ratio} Normal [facility] Comment on above: Performed By: #### B MP, LIVER #### [facility] [address] [place], [place] [address] Crissy Suzy ALP [Catalytic activity/Vol] 84 U/L Normal 38-126 [facility] Comment on above: Performed By: #### B MP, LIVER #### [facility] [address], [place] [address] Crissy Suzy ALT [Catalytic activity/Vol] 30 U/L Normal 9-52 [facility] Comment on above: Performed By: #### B MP, LIVER #### [facility] [address], [place] [address] Crissy Suzy AST [Catalytic activity/Vol] 29 U/L Normal 14-36 [facility] Comment on above: Performed By: #### B MP, LIVER #### [facility] [address], [place] [address] Crissy Suzy BILI, CONJUGATED 0.1 mg/dL Normal 0.0-0.3 [facility] Comment on above: Performed By: #### B MP, LIVER #### [facility] [address] [place] [phone] Crissy Suzy Bilirubin Ql (U) 0.3 mg/dL Normal 0.2-1.3 [facility] Comment on above: Performed By: #### B MP, LIVER #### [facility] [address], [place] [address] Crissy Suzy Globulin (S) [Mass/Vol] 4.6 g/dL Normal [facility] Comment on above: Performed By: #### B MP, LIVER #### [facility] [address], [place] [address] Crissy Suzy Protein [Mass/Vol] 8.5 g/dL Critically high 6.1-8.2 [facility] Comment on above: Performed By: #### B MP, LIVER #### [facility] [address], [place] [address] Crissy Suzy PREG HCG QUALon 07-21-2019 , QUAL Negative Normal NEGATIVE [facility] Comment on above: Performed By: #### P REG #### [facility] [address], [place] [address] Crissystephania Lobatoen PROF CHEM 8 (BAS METB)on Anion gap [Moles/Vol] 12.0 mmol/L Normal [facility] Comment on above: Performed By: #### B MP, LIVER #### [facility] [address] [place], [place] [address] Crissy Suzy Calcium [Mass/Vol] 9.1 mg/dL Normal 8.4-10.2 [facility] Comment on above: Performed By: #### B MP, LIVER #### [facility] [address] [place] [address] Crissy Suzy Chloride [Moles/Vol] 101 mmol/L Normal 98-107 [facility] Comment on above: Performed By: #### B MP, LIVER #### [facility] [address] [place] [address] Crissy Suzy CO2 [Moles/Vol] 25.2 mmol/L Normal 22.0-30.0 [facility] Comment on above: Performed By: #### B MP, LIVER #### [facility] [facility] [address] [place] [address] Crissy Suzy Creatinine [Mass/Vol] 0.80 mg/dL Normal 0.52-1.04 [facility] Comment on above: Performed By: #### B MP, LIVER #### [facility] [address] [place], [place] [id number] Crissy Suzy EGFR-AF PALAUAN >60 Normal >=60 [facility] Comment on above: Performed By: #### B MP, LIVER #### [facility] [address] [place] [address] Crissy Suzy EGFR-NON AF PALAUAN >60 Normal >=60 [facility] Comment on above: Performed By: #### B MP, LIVER #### [facility] [address] [place] [address] Crissy Suzy Glucose [Mass/Vol] 86 mg/dL Normal 74-106 [facility] Comment on above: Performed By: #### B MP, LIVER #### [facility] [address] [place] [address] Crissy Suzy Potassium [Moles/Vol] 4.2 mmol/L Normal 3.4-5.0 [facility] Comment on above: Performed By: #### B MP, LIVER #### [facility] [address] [id number] Crissy Suzy Sodium [Moles/Vol] 134 mmol/L Critically low 137-145 [facility] Comment on above: Performed By: #### B MP, LIVER #### [facility] [address] [place], [place] [id number] Crissy Suzy Urea nitrogen [Mass/Vol] 16.0 mg/dL Normal 7.0-17.0 [facility] Comment on above: Performed By: #### B MP, LIVER #### [facility] [address] [place], [place] [id number] Crissy Suzy Urea nitrogen/Creatinine [Mass ratio] 20.0 mg/mg Normal [facility] Comment on above: Performed By: #### B MP, LIVER #### [facility] [address] [place], [place] [id number] Crissy Suzy URINE MICROSCOPIC ONLYon Bacteria LM.HPF (Urine sed) [#/Area] TRACE Normal NONE SEEN [facility] Comment on above: Performed By: #### Philipp BEDOLLA UMICRO #### [facility] [address] [place], [place] [id number] Crissy Suzy CAST NONE SEEN Normal NONE SEEN [facility] Comment on above: Performed By: #### Philipp BEDOLLA UMICRO #### [facility] [address] [place], [place] [id number] Crissy Suzy Crystals LM Nom (Urine sed) NONE SEEN Normal NONE SEEN [facility] Comment on above: Performed By: #### Philipp BEDOLLA UMICRO #### [facility] [address] [place], [place] [id number] Crissy Suzy CULTURE NOT INDICATED Normal [facility] Comment on above: Performed By: #### Philipp BEDOLLA UMICRO #### [facility] [address] [place], [place] [id number] Crissy Suzy Epithelial cells LM.HPF (Urine sed) [#/Area] RARE Normal [facility] Comment on above: Performed By: #### Philipp BEDOLLA UMICRO #### [facility] [address], [place] [address] Crissy Suzy MUCOUS NONE SEEN Normal NONE SEEN [facility] Comment on above: Performed By: #### ALYSSA KRUEGER #### [facility] [address], [place] [address] Crissy Almonte RBC (U) [#/Vol] 2-5 Normal 0-2 [facility] Comment on above: Performed By: #### ALYSSA KRUEGER #### [facility] [address], [place] [address] Crissy Almonte WBC (Bld) [#/Vol] NONE SEEN Normal NONE SEEN [facility] Comment on above: Performed By: #### ALYSSA KRUEGER #### [facility] [address], [place] [address] Crissy Almonte Vital Signs Date Time Vital Sign Value Performing Clinician Facility 10-02-2024 17:45-0500 Diastolic blood pressure 82 mm[Hg] Harry Florese [facility] 10-02-2024 17:45-0500 Heart rate 101 /min Harry Florese [facility] 10-02-2024 17:45-0500 Mean blood pressure 88 mm[Hg] Harry Florese [facility] 10-02-2024 17:45-0500 Respiratory rate 38 /min Harry Florese [facility] 10-02-2024 17:45-0500 SaO2% (BldA) [Mass fraction] 97 % Harry Florese [facility] 10-02-2024 17:45-0500 Systolic blood pressure 101 mm[Hg] Harry Florese [facility] 10-02-2024 17:05-0500 Diastolic blood pressure 79 mm[Hg] Harry Florese [facility] 10-02-2024 17:05-0500 Heart rate 105 /min Harry Ida [facility] 10-02-2024 17:05-0500 Mean blood pressure 83 mm[Hg] Harry Ida [facility] 10-02-2024 17:05-0500 Respiratory rate 42 /min Harry Ida [facility] 10-02-2024 17:05-0500 SaO2% (BldA) [Mass fraction] 98 % Harry Ida [facility] 10-02-2024 17:05-0500 Systolic blood pressure 92 mm[Hg] Harry Ida [facility] 10-02-2024 16:00-0500 Diastolic blood pressure 72 mm[Hg] Harry Ida [facility] 10-02-2024 16:00-0500 Heart rate 98 /min Harry Ida [facility] 10-02-2024 16:00-0500 Mean blood pressure 81 mm[Hg] Harry Ida [facility] 10-02-2024 16:00-0500 Respiratory rate 10 /min Harry Ida [facility] 10-02-2024 16:00-0500 SaO2% (BldA) [Mass fraction] 100 % Harry Ida [facility] 10-02-2024 16:00-0500 Systolic blood pressure 99 mm[Hg] Harry Ida [facility] 10-02-2024 13:55-0500 Body temperature 101.3 [degF] Harry Ida [facility] 10-02-2024 13:55-0500 Heart rate 154 /min Harry Ida [facility] 10-02-2024 13:55-0500 Respiratory rate 20 /min Harry Devine [facility] 07-17-2024 10:37-0400 Body mass index (BMI) [Ratio] 22.79 kg/m2 Shaq Thakkar MD Work Phone: [facility] 07-17-2024 10:37-0400 Body weight 63.7 kg Shaq Thakkar MD Work Phone: [facility] 07-17-2024 10:37-0400 Diastolic blood pressure 67 mm[Hg] Shaq Thakkar MD Work Phone: [facility] 07-17-2024 10:37-0400 Systolic blood pressure 107 mm[Hg] Shaq Thakkar MD Work Phone: [facility] 07-13-2024 23:53-0400 Diastolic blood pressure 76 mm[Hg] Elliot Macias [facility] 07-13-2024 23:53-0400 Heart rate 97 /min Elliot Macias [facility] 07-13-2024 23:53-0400 Mean blood pressure 86 mm[Hg] Elliot Macias [facility] 07-13-2024 23:53-0400 Respiratory rate 16 /min Elliot Macias [facility] 07-13-2024 23:53-0400 SaO2% (BldA) [Mass fraction] 96 % Elliot Macias [facility] 07-13-2024 23:53-0400 Systolic blood pressure 105 mm[Hg] Elliot Macias [facility] 07-13-2024 21:27-0400 Diastolic blood pressure 84 mm[Hg] Elliot Macias [facility] 07-13-2024 21:27-0400 Heart rate 100 /min Elliot Gilberto [facility] 07-13-2024 21:27-0400 Mean blood pressure 96 mm[Hg] Elliot Gilberto [facility] 07-13-2024 21:27-0400 Respiratory rate 15 /min Elliot Gilberto [facility] 07-13-2024 21:27-0400 SaO2% (BldA) [Mass fraction] 96 % Elliot Gilberto [facility] 07-13-2024 21:27-0400 Systolic blood pressure 119 mm[Hg] Elliot Gilberto [facility] 07-13-2024 20:39-0400 Diastolic blood pressure 75 mm[Hg] Elliot Gilberto [facility] 07-13-2024 20:39-0400 Heart rate 96 /min Elliot Gilberto [facility] 07-13-2024 20:39-0400 Mean blood pressure 88 mm[Hg] Elliot Gilberto [facility] 07-13-2024 20:39-0400 Respiratory rate 17 /min Elliot Gilberto [facility] 07-13-2024 20:39-0400 SaO2% (BldA) [Mass fraction] 96 % Elliot Gilberto [facility] 07-13-2024 20:39-0400 Systolic blood pressure 114 mm[Hg] Elliot Gilberto [facility] 07-13-2024 18:26-0400 Body temperature 98.42 [degF] Elliot Gilberto [facility] 07-13-2024 18:26-0400 Heart rate 120 /min Elliot Gilberto [facility] 06-30-2024 15:20-0400 Diastolic blood pressure 62 mm[Hg] Harry Ida [facility] 06-30-2024 15:20-0400 Heart rate 101 /min Harry Ida [facility] 06-30-2024 15:20-0400 Mean blood pressure 73 mm[Hg] Harry Ida [facility] 06-30-2024 15:20-0400 Respiratory rate 17 /min Harry Ida [facility] 06-30-2024 15:20-0400 SaO2% (BldA) [Mass fraction] 99 % Harry Ida [facility] 06-30-2024 15:20-0400 Systolic blood pressure 94 mm[Hg] Harry Ida [facility] 06-30-2024 14:30-0400 Diastolic blood pressure 62 mm[Hg] Harry Ida [facility] 06-30-2024 14:30-0400 Heart rate 80 /min Harry Ida [facility] 06-30-2024 14:30-0400 Mean blood pressure 71 mm[Hg] Harry Ida [facility] 06-30-2024 14:30-0400 Respiratory rate 17 /min Harry Ida [facility] 06-30-2024 14:30-0400 SaO2% (BldA) [Mass fraction] 97 % Harry Ida [facility] 06-30-2024 14:30-0400 Systolic blood pressure 90 mm[Hg] Harry Ida [facility] 06-30-2024 14:00-0400 Diastolic blood pressure 59 mm[Hg] Harry Devine [facility] 06-30-2024 14:00-0400 Heart rate 81 /min Harry Devine [facility] 06-30-2024 14:00-0400 Mean blood pressure 69 mm[Hg] Harry Devine [facility] 06-30-2024 14:00-0400 Respiratory rate 16 /min Harry Devine [facility] 06-30-2024 14:00-0400 SaO2% (BldA) [Mass fraction] 98 % Harry Devine [facility] 06-30-2024 11:12-0400 Body temperature 97.52 [degF] Harry Devine [facility] 06-30-2024 11:12-0400 Heart rate 144 /min Harry Devine [facility] 06-30-2024 11:12-0400 Respiratory rate 22 /min Harry Devine [facility] 04-08-2024 15:01-0400 Diastolic blood pressure 70 mm[Hg] [facility] 04-08-2024 15:01-0400 Heart rate 98 /min [facility] 04-08-2024 15:01-0400 Mean blood pressure 82 mm[Hg] [facility] 04-08-2024 15:01-0400 Respiratory rate 16 /min [facility] 04-08-2024 15:01-0400 SaO2% (BldA) [Mass fraction] 97 % [facility] 04-08-2024 15:01-0400 Systolic blood pressure 105 mm[Hg] [facility] 04-08-2024 14:00-0400 Diastolic blood pressure 64 mm[Hg] [facility] 04-08-2024 14:00-0400 Heart rate 103 /min [facility] 04-08-2024 14:00-0400 Mean blood pressure 74 mm[Hg] [facility] 04-08-2024 14:00-0400 SaO2% (BldA) [Mass fraction] 98 % [facility] 04-08-2024 14:00-0400 Systolic blood pressure 94 mm[Hg] [facility] 04-08-2024 12:54-0400 Diastolic blood pressure 67 mm[Hg] [facility] 04-08-2024 12:54-0400 Heart rate 89 /min [facility] 04-08-2024 12:54-0400 Mean blood pressure 80 mm[Hg] [facility] 04-08-2024 12:54-0400 Respiratory rate 16 /min [facility] 04-08-2024 12:54-0400 SaO2% (BldA) [Mass fraction] 97 % [facility] 04-08-2024 12:54-0400 Systolic blood pressure 105 mm[Hg] [facility] 04-08-2024 11:35-0400 Body temperature 98.24 [degF] [facility] 04-08-2024 11:35-0400 Heart rate 131 /min [facility] 04-01-2024 10:10-0400 Diastolic blood pressure 64 mm[Hg] Mary 3 Work Phone: [facility] 04-01-2024 10:10-0400 Heart rate 83 /min Mary 3 Work Phone: [facility] 04-01-2024 10:10-0400 Respiratory rate 16 /min Mary 3 Work Phone: [facility] 04-01-2024 10:10-0400 SaO2% (BldA) [Mass fraction] 98 % Mary 3 Work Phone: [facility] 04-01-2024 10:10-0400 Systolic blood pressure 101 mm[Hg] Mary 3 Work Phone: [facility] 04-01-2024 09:10-0400 Body temperature 97.39 [degF] Mary 3 Work Phone: [facility] 03-12-2024 10:18-0400 Diastolic blood pressure 81 mm[Hg] Mary 2 Work Phone: [facility] 03-12-2024 10:18-0400 Heart rate 67 /min Mary 2 Work Phone: [facility] 03-12-2024 10:18-0400 Respiratory rate 16 /min Mary 2 Work Phone: [facility] 03-12-2024 10:18-0400 SaO2% (BldA) [Mass fraction] 99 % Mary 2 Work Phone: [facility] 03-12-2024 10:18-0400 Systolic blood pressure 112 mm[Hg] Mary 2 Work Phone: [facility] 03-12-2024 08:52-0400 Body temperature 98.1 [degF] Mary 2 Work Phone: [facility] 03-08-2024 15:42-0400 Diastolic blood pressure 83 mm[Hg] [facility] 03-08-2024 15:42-0400 Heart rate 95 /min [facility] 03-08-2024 15:42-0400 Mean blood pressure 95 mm[Hg] [facility] 03-08-2024 15:42-0400 Respiratory rate 15 /min [facility] 03-08-2024 15:42-0400 SaO2% (BldA) [Mass fraction] 99 % [facility] 03-08-2024 15:42-0400 Systolic blood pressure 118 mm[Hg] [facility] 03-08-2024 15:00-0400 Diastolic blood pressure 79 mm[Hg] [facility] 03-08-2024 15:00-0400 Heart rate 80 /min [facility] 03-08-2024 15:00-0400 Mean blood pressure 92 mm[Hg] [facility] 03-08-2024 14:30-0400 Diastolic blood pressure 74 mm[Hg] [facility] 03-08-2024 14:30-0400 Heart rate 81 /min [facility] 03-08-2024 14:30-0400 Mean blood pressure 88 mm[Hg] [facility] 03-08-2024 14:30-0400 Respiratory rate 18 /min [facility] 03-08-2024 14:30-0400 Systolic blood pressure 116 mm[Hg] [facility] 03-08-2024 13:30-0400 SaO2% (BldA) [Mass fraction] 98 % [facility] 03-08-2024 12:30-0400 SaO2% (BldA) [Mass fraction] 94 % [facility] 03-08-2024 09:43-0400 Body temperature 97.7 [degF] [facility] 03-08-2024 09:43-0400 Heart rate 122 /min [facility] 03-04-2024 11:30-0400 Diastolic blood pressure 76 mm[Hg] [facility] 03-04-2024 11:30-0400 Heart rate 88 /min [facility] 03-04-2024 11:30-0400 Mean blood pressure 89 mm[Hg] [facility] 03-04-2024 11:30-0400 Respiratory rate 16 /min [facility] 03-04-2024 11:30-0400 SaO2% (BldA) [Mass fraction] 100 % [facility] 03-04-2024 11:30-0400 Systolic blood pressure 114 mm[Hg] [facility] 03-04-2024 10:32-0400 Diastolic blood pressure 76 mm[Hg] [facility] 03-04-2024 10:32-0400 Heart rate 89 /min [facility] 03-04-2024 10:32-0400 Mean blood pressure 89 mm[Hg] [facility] 03-04-2024 10:32-0400 Respiratory rate 14 /min [facility] 03-04-2024 10:32-0400 SaO2% (BldA) [Mass fraction] 98 % [facility] 03-04-2024 10:32-0400 Systolic blood pressure 114 mm[Hg] [facility] 03-04-2024 09:20-0400 Body temperature 98.42 [degF] [facility] 03-04-2024 09:20-0400 Diastolic blood pressure 98 mm[Hg] [facility] 03-04-2024 09:20-0400 Heart rate 119 /min [facility]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 Cheema MD Work Phone: [facility] 08-10-2021 07:47-0500 SaO2% (BldA) [Mass fraction] 99 % Kale Cheema MD Work Phone: [facility] 08-10-2021 07:47-0500 Systolic blood pressure 128 mm[Hg] Kale Cheema MD Work Phone: [facility] 08-10-2020 09:17-0500 BP Diastolic 56 mm[Hg] [facility] [place] 08-10-2020 09:17-0500 BP Systolic 106 mm[Hg] [facility] [place] 08-10-2020 09:17-0500 Pulse (Heart Rate) 75 /min [facility] [place] 08-10-2020 09:17-0500 Pulse Oximetry 96 % [facility] [place] 08-10-2020 09:17-0500 Respiratory Rate 18 /min [facility] [place] 08-10-2020 08:01-0500 BMI (Body Mass Index) 37.77 kg/m2 [facility] 08-10-2020 08:01-0500 Body Temperature 97.81 [degF] [facility] [place] 08-10-2020 08:01-0500 Body weight 106.14 kg [facility] [place] 08-10-2020 08:01-0500 Height 167.6 cm [facility] , [place] 03-01-2020 22:35-0400 BP Diastolic 67 mm[Hg] [facility] [place] 03-01-2020 22:35-0400 BP Systolic 118 mm[Hg] [facility] [place] 03-01-2020 22:35-0400 Pulse Oximetry 99 % Jo [facility] [place] 03-01-2020 21:05-0400 BMI (Body Mass Index) 38.29 kg/m2 [facility], [place] 03-01-2020 21:05-0400 Body Temperature 99.39 [degF] [facility] [place] [place] 03-01-2020 21:05-0400 Body [facility] 107.[facility] [place] 03-01-2020 21:05-0400 Pulse (Heart Rate) 116 /min [facility] [place] [place] 03-01-2020 21:05-0400 Respiratory Rate 20 /min [facility], [place] Encounters Encounter Date Encounter Type Care Provider Facility Start: 10-02-2024 End: 10-02-2024 Emergency department patient visit Harry Devine [facility] Start: 08-12-2024 End: 08-12-2024 Telephone encounter Lee Ann Humphries DO Work Phone: Gastroenterology [facility] Start: 08-12-2024 End: 08-12-2024 ambulatory KALE RENDON Facility:[facility] Start: 07-23-2024 Emergency department patient visit Carolyn Pimentelkriss Facility:[facility] Start: 07-20-2024 End: 07-20-2024 ambulatory KALE RENDON Facility:[facility] Start: 07-17-2024 End: 07-17-2024 ambulatory SHAQ THAKKAR Facility:[facility] Start: 07-17-2024 End: 07-17-2024 Patient encounter procedure Shaq Thakkar MD Work Phone: Colorectal Surgery Comment on above: Anal fistula (Primar y Dx); Crohn's disease with fistula, unspecified gastrointestinal tract location (HCC) Start: 07-13-2024 End: 07-13-2024 Emergency department patient visit Elliot Macias [facility] Start: 07-13-2024 End: 07-13-2024 Specialty Pharmacy Zaira Campbell [facility] Comment on above: SPP Inflammatory Con ditions - Medication Refill (Entyvio) Start: 07-01-2024 End: 07-01-2024 ambulatory Zaira Campbell [facility] Start: 07-01-2024 End: 07-01-2024 Follow-up encounter Zaira Campbell [facility] Comment on above: SPP Inflammatory Con ditions - Follow-up (Enytvio); Insurance Authorization ([place] renewal approved) Start: 06-30-2024 End: 06-30-2024 Emergency department patient visit [facility] Start: 06-12-2024 End: 06-12-2024 ambulatory Zaira Lisa [facility] Start: 06-12-2024 End: 06-12-2024 Follow-up encounter Zaira Campbell [facility] Comment on above: SPP Inflammatory Con ditions - Follow-up (Entyvio); Insurance Authorization (PA renewal approved for 1 month) SPP Inflammatory Con ditions - Medication Refill (Entyvio) Start: 05-15-2024 End: 05-15-2024 Specialty Pharmacy Zaira Campbell [facility] Comment on above: SPP Inflammatory Con ditions - Medication Refill (Entyvio) Start: 05-13-2024 End: 05-13-2024 Telephone encounter Candis Laughlin RN Work Phone: General Surgery Start: 04-08-2024 End: 04-08-2024 Emergency department patient visit [facility] Start: 04-01-2024 Telephone encounter Maddie Michele [facility] Start: 04-01-2024 End: 04-01-2024 ambulatory LEE ANN HUMPHRIES [facility] Start: 04-01-2024 End: 04-01-2024 Patient encounter procedure Mary Infusion Chair 3 Work Phone: [facility] Start: 03-25-2024 Telephone encounter Maddie Michele [facility] Start: 03-12-2024 End: 03-12-2024 Patient encounter procedure Mary Infusion Chair 2 Work Phone: [facility] Start: 03-12-2024 End: 03-12-2024 ambulatory LEE ANN HUMPHRIES [facility] Comment on above: Arrived Start: 03-08-2024 End: 03-08-2024 Emergency department patient visit [facility] Start: 03-04-2024 End: 03-04-2024 Emergency department [facility] Start: 03-02-2024 End: 03-02-2024 ambulatory Zuly Soto Facility:[facility] Start: 03-02-2024 End: 03-02-2024 Patient encounter procedure Zuly Soto [facility] Start: 02-26-2024 ambulatory Zaira finley [facility] Start: 02-26-2024 Patient encounter procedure Zaira Campbell [facility] Comment on above: SPP Inflammatory Con ditions - Treatment Referral (Entyvio); Insurance Authorization (PA submitted ) Start: 02-26-2024 Telephone encounter Lee Ann browning DO Work Phone: Gastroenterology Comment on above: Orders (Entyvio); Ca re Coordinator - Other Start: 02-25-2024 End: 02-25-2024 ambulatory LEE ANN HUMPHRIES Facility:[facility] Start: 02-25-2024 End: 02-25-2024 Office outpatient visit 25 minutes Lee Ann Humphries DO Work Phone: Gastroenterology [facility] Comment on above: Crohn's disease of c olon with fistula (HCC) (Primary Dx); Crohn's disease of both small and large intestine with intestinal obstruction (HCC); Ileostomy prolapse (HCC) Start: 01-27-2024 Orders Only Rut Lagos MD Work Phone: Gastroenterology Start: 01-20-2024 Telephone encounter Angel edmond PA-C Work Phone: [facility] Comment on above: Appointment Start: 01-20-2024 End: 01-20-2024 Evaluation and management of inpatient JORJE LOYD Facility:[facility] Start: 01-17-2024 Emergency department patient visit KALE RENDON Facility:[facility] Start: 01-17-2024 Telephone encounter Rut mccartney MD Work Phone: Gastroenterology Comment on above: University Demonstrator - O ther Start: 12-21-2023 End: 12-21-2023 Emergency department patient visit Elliot Macias [facility] Start: 12-07-2023 End: 12-08-2023 Emergency department patient visit Harry Devine [facility] Start: 11-15-2023 End: 11-15-2023 ambulatory PATRICIA RAMIREZ Facility:[facility] Start: 11-15-2023 End: 11-15-2023 Patient encounter procedure Patricia Ramirez SQUAD LEADER.CNM Work Phone: Obstetrics/Gynecology Comment on above: At risk for depresse d mood during period (Primary Dx); Lactating mother Start: 10-24-2023 End: 10-27-2023 Evaluation and management of inpatient KALE RENDON Facility:[facility] Start: 10-24-2023 End: 10-24-2023 ambulatory NAE Sj PANIAGUANOTTI Facility:[facility] Start: 10-24-2023 End: 10-24-2023 Patient encounter procedure Whi Tech 1 Billing Supervisor Mfm Frvw Mc 345 Maternal Medicine Comment on above: Maternal Crohn's dis ease affecting in third trimester (HCC) (Primary Dx); Crohn's disease of colon with complication (HCC) Start: 10-22-2023 End: 10-22-2023 ambulatory NAE D ZANOTTI Facility:[facility] Start: 10-21-2023 End: 10-22-2023 ambulatory NAE D ZANOTTI Facility:[facility] Start: 10-18-2023 End: 10-18-2023 ambulatory SHAQ THAKKAR Facility:[facility] Start: 10-17-2023 End: 10-17-2023 ambulatory NAE D ZANOTTI Facility:[facility] Start: 10-15-2023 End: 10-15-2023 ambulatory NAE D ZANOTTI Facility:[facility] Start: 10-14-2023 End: 10-14-2023 ambulatory NAE D ZANOTTI Facility:[facility] Start: 10-10-2023 End: 10-10-2023 ambulatory NAE D ZANOTTI Facility:[facility] Start: 10-08-2023 End: 10-08-2023 ambulatory NEA D ZANOTTI Facility:[facility] Start: 10-03-2023 End: 10-03-2023 ambulatory NAE D ZANOTTI Facility:[facility] Start: 10-01-2023 End: 10-01-2023 ambulatory Anoop Lopez Facility:[facility] Start: 10-01-2023 End: 10-01-2023 Emergency department patient visit Harry Devine Facility:[facility] Start: 10-01-2023 End: 10-01-2023 ambulatory Anoop Lopez Facility:[facility] Start: 09-27-2023 End: 09-27-2023 ambulatory NAE D ZANOTTI Facility:[facility] Start: 09-19-2023 End: 09-19-2023 ambulatory NAE D ZANOTTI Facility:[facility] Start: 09-12-2023 End: 09-12-2023 ambulatory NAE D ZANOTTI Facility:[facility] Start: 09-07-2023 End: 09-23-2023 Pre-admission assessment Anoop Lopez [facility] Start: 09-06-2023 End: 09-06-2023 ambulatory Anoop Lopez Facility:[facility] Start: 09-06-2023 End: 09-06-2023 OB Triage Anoop Lopez [facility] Start: 09-06-2023 End: 09-06-2023 Emergency department patient visit Heriberto Zelaya Facility:[facility] Start: 09-05-2023 End: 09-05-2023 ambulatory NAE COSTA Facility:[facility] Start: 09-05-2023 End: 09-05-2023 Patient encounter procedure Nae Costa MD Work Phone: Obstetrics/Gynecology Comment on above: care, subse quent , third trimester (Primary Dx); 31 weeks gestation of ; 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); Anemia during in third trimester; Sterilization consult; Maternal Crohn's disease affecting in third trimester (HCC) Start: 08-21-2023 Telephone encounter Angel edmond PA-C Work Phone: [facility] Provider Adult Comment on above: Follow Up (Needs OV) Start: 08-19-2023 End: 08-23-2023 Evaluation and management of inpatient NAVDEEP SETHI Facility:[facility] Start: 08-19-2023 Telephone encounter Nae raaya MD Work Phone: Obstetrics/Gynecology Comment on above: cramping; Bleeding W ith Start: 08-05-2023 Telephone encounter University Demonstrator RN Maternal Medicine Comment on above: University Demonstrator - O ther (PRAF) Start: 08-01-2023 End: 08-01-2023 Patient encounter procedure Nae Costa MD Work Phone: Obstetrics/Gynecology Comment on above: care, subse quent , second trimester (Primary Dx); 26 weeks gestation of ; Screening for diabetes mellitus; General counseling and advice for contraceptive management Start: 07-24-2023 Refill Nae tracey MD Work Phone: Obstetrics/Gynecology Comment on above: Refill Request Start: 07-24-2023 Telephone encounter Rut mccartney MD Work Phone: Gastroenterology Start: 07-08-2023 End: 07-08-2023 Patient encounter procedure Naomie Jarvis MD Work Phone: Maternal Medicine Comment on above: Encounter for anatomic survey (Primary Dx); care, subsequent , second trimester; Obesity affecting in second trimester, unspecified obesity type; 22 weeks gestation of Start: 07-05-2023 ambulatory Nae tracey MD Work Phone: Obstetrics/Gynecology Comment on above: Daily anxiety medica tion Start: 07-05-2023 Telephone encounter University Demonstrator RN Obstetrics/Gynecology Comment on above: PRAF (1st r isk assessment form submitted at 22.2 wks. Lynn Pena RN) Start: 07-04-2023 End: 07-04-2023 Patient encounter procedure Nae Costa MD Work Phone: Obstetrics/Gynecology Comment on above: care, subse quent , second trimester (Primary Dx); 22 weeks gestation of ; Screening for diabetes mellitus; Crohn's disease of large intestine without complication (HCC); Supervision of high risk , antepartum; Need for influenza vaccination; Anxiety; Intractable migraine without status migrainosus, unspecified migraine type; Maternal Crohn's disease affecting , antepartum (HCC) Start: 06-02-2023 End: 06-03-2023 Emergency department patient visit [place] [facility] Emergency 03 Start: 05-26-2023 End: 05-27-2023 Emergency department patient visit Garcia Franco Facility:[facility] Start: 05-25-2023 End: 05-25-2023 Emergency department patient visit Heriberto Zelaya [facility] Start: 04-30-2023 Telephone encounter Araceli ortega MD Work Phone: [facility] Provider Adult Comment on above: [facility] Start: 04-26-2023 End: 04-27-2023 Emergency department patient visit Alfred Graham [facility] Start: 04-18-2023 Telephone encounter Yfn stephens APRN.CNP Work Phone: Gastroenterology Comment on above: Appointment; Patient Update; University Demonstrator - Other Start: 04-14-2023 End: 04-15-2023 Emergency department patient visit Carolyn Mcmahon [facility] Start: 04-14-2023 Chart abstracting Courtney Schroeder Colorectal Surgery Start: 04-05-2023 Telephone encounter Qing Bha fiona [facility] Work Phone: Gastroenterology Comment on above: Appointment Start: 03-10-2023 End: 03-10-2023 Emergency department patient visit Elliot Macias [facility] Start: 03-06-2023 Telephone encounter Yfn Louiskrish stephens APRN.CNP Work Phone: [facility] Comment on above: Medication Authoriza tion (Cortifoam 10% foam requires PA) Start: 03-05-2023 Telephone encounter Rut mccartney MD Work Phone: Gastroenterology Comment on above: Patient Update Start: 02-21-2023 End: 02-21-2023 Patient encounter procedure Karlos RAWLS [facility] Start: 02-04-2023 End: 02-04-2023 Patient encounter procedure Rut Lagos MD Work Phone: Gastroenterology Comment on above: Crohn's disease of c olon with fistula (HCC) (Primary Dx); History of endoscopy; Imaging of gastrointestinal tract abnormal; Crohn's colitis, unspecified complication (HCC) Start: 01-25-2023 End: 01-26-2023 Emergency department patient visit Alfred Graham [facility] Start: 01-18-2023 Orders Only Zhane Quinones MD Work Phone: Gastroenterology Comment on above: Diarrhea, unspecifie d type (Primary Dx) Start: 01-13-2023 End: 01-13-2023 Emergency department patient visit Carolyn Mcmahon [facility] Start: 01-09-2023 End: 01-09-2023 Emergency department patient visit Elliot Macias [facility] Start: 12-24-2022 Emergency department patient visit JOSE RAUL A PHILLIPS [facility] Start: 12-24-2022 End: 12-24-2022 Emergency department patient visit Darlyn Mclain MD Work Phone: [facility] ED Comment on above: Gastroenteritis (Moni blaire Dx) Start: 12-23-2022 End: 12-23-2022 Emergency department patient visit Harry Nelson Facility:[facility] Start: 09-29-2022 End: 09-29-2022 Emergency department patient visit Alex Sanchez [facility] Start: 05-30-2022 End: 05-31-2022 Emergency department patient visit Alfred Graham [facility] Start: 02-27-2022 End: 02-27-2022 Emergency department patient visit Alex Sanchez [facility] Start: 12-18-2021 End: 12-18-2021 Emergency department patient visit Carolyn Drake Lisandro [facility] Start: 08-10-2021 End: 08-10-2021 Emergency department patient visit Kale Cheema MD Work Phone: [facility] ED Comment on above: Fungal infection of skin of abdomen (Primary Dx); History of ileostomy; History of Crohn's disease Start: 07-17-2021 ambulatory [facility]KNOWN [facility] Start: 07-16-2021 End: 07-17-2021 Emergency department patient visit UNKNOWN PROVIDER [facility] Start: 08-10-2020 End: 08-10-2020 Emergency department patient visit Roselia Gallardo Work Phone: [facility] Comment on above: Acute Crohn's diseas e without complication (HCC) (Primary Dx); Generalized abdominal pain Start: 03-01-2020 End: 03-01-2020 Emergency department patient visit Jo Staples Work Phone: [facility] ED Comment on above: Abdominal pain, unsp ecified abdominal location (Primary Dx); Exacerbation of ulcerative colitis with rectal bleeding (HCC) Start: 07-21-2019 End: 07-21-2019 Patient encounter procedure HARRY DEVINE Facility:[facility] Procedures Date Procedure Procedure Detail Performing Clinician Start: 03-01-2024 H/O: ileostomy Zuly Soto Start: 10-24-2023 Antibody screen NAVDEEP SETHI Comment on above: Order Comment: Specimen Type: BLOOD SPEC IMENOrdering Facility: [facility] Address: [address] [place] [address] Performed By: #### T SPN ####GISELLE BLOOD BANKCLIA [id number] [place] [address] [place] Start: 10-24-2023 Us preg uterus after 1st trimest 09/23 gestation Nae Costa MD Work Phone: Start: 09-05-2023 URINE OB DIP B/O Nae Costa MD Work Phone: Start: 08-22-2023 Antibody screen NAVDEEP SETHI Comment on above: Order Comment: Specimen Type: BLOOD SPEC IMENOrdering Facility: [facility] Address: [address] [place] [address] Performed By: #### T SPN ####GISELLE BLOOD BANKCLIA [id number] [address] OF [facility] Start: 08-19-2023 Antibody screen NAVDEEP SETHI Comment on above: Order Comment: Specimen Type: BLOOD SPEC IMENOrdering Facility: [facility] Address: [address] [place] [address] Performed By: #### T SPN ####GISELLE BLOOD BANKCLIA [id number] [address] OF [place] Start: 08-01-2023 URINE OB DIP B/O Nae Costa MD Work Phone: Start: 07-08-2023 Us preg uterus after 1st trimest 09/23 gestation Nae Costa MD Work Phone: Start: 07-04-2023 URINE OB DIP B/O Nae Costa MD Work Phone: Start: 07-04-2023 Iadna chlamydia trachomatis amplified probe tq Nae Costa MD Work Phone: Start: 07-04-2023 INFLUENZA VACCINE, AGE 6 MO - 64 YR, QUADRIVALENT (AFLURIA, FLULAVAL, FLUZONE) Nae Costa MD Work Phone: Start: 06-03-2023 End: 06-03-2023 EKG impression [place] Start: 02-20-2023 H/O: ileostomy Karlos RAWLS Start: 01-18-2023 Colonoscopy Alfred Romeomichellehelena Comment on above: MUSCOSAL ULCERATIONS IN THE SIGMOID COLO N PER DR NATASHA PRICE @ cc Start: 12-24-2022 Ct abdomen & pelvis w/contrast material Darlyn Mclain MD Work Phone: Start: 12-24-2022 Urinalysis microscopic only Darlyn Mclain MD Work Phone: Start: 12-24-2022 Urnls dip stick/tablet rgnt auto w/o microscopy Darlyn Mclain MD Work Phone: Start: 12-24-2022 Comprehensive metabolic panel Darlyn rodriguez MD Work Phone: Start: 01-22-2021 H/O: surgery History of creation of ostomy Zhane Quinones MD Work Phone: Start: 08-10-2020 Radex abd compl aqt abd w/s/e/d views 1 view ch Dhara Strus Work Phone: Start: 08-10-2020 Gonadotropin chorionic qualitative Roselia Gallardo Work Phone: Start: 08-10-2020 Blood count complete auto&auto difrntl wbc Roselia Gallardo Work Phone: Start: 03-01-2020 Blood count complete auto&auto difrntl wbc oJ Jhoan Work Phone: Start: 03-01-2020 Comprehensive metabolic panel Veselin Di mitrov Work Phone: Start: 09-23-2013 Colonoscopy Carolyn Mcmahon Esophagogastroduodenoscopy A kalyan Mcmahon H/O: ileostomy History of ileostomy Kale Cheema MD Work Phone: H/O: ileostomy Carolyn Woodson i H/O: ileostomy S/P ileostomy( Confirmed ) Carolyn Mcmahon Plan of Treatment Date Care Activity Detail Author Start: 2055 HEPATITIS B (1 of 3 - Risk 3-dose series) HEPATITIS B (1 of 3 - Risk 3-dose series) [facility] Start: 2055 Hepatitis B Vaccine (1 of 3 - Risk 3-dose series) Hepatitis B Vaccine (1 of 3 - Risk 3-dose series) [facility] Start: 09-19-2033 Urine microalbumin profile DTaP,Tdap,Td Vaccine (4 - Td or Tdap) [facility] Start: 02-05-2025 DTaP/Tdap/Td vaccine (3 - Td or Tdap) DTaP/Tdap/Td vaccine (3 - Td or Tdap) [facility] Start: 02-05-2025 Urine microalbumin profile [facility] Start: 09-04-2024 End: 09-04-2024 Nursing evaluation of patient and report 09/04/2024 9:15 AM EST Nurse Visit Colorectal Surgery [address] [phone] Therapy, [place] [address] [place] [address] f/u Post Op Colorectal Surgery Comment on above: f/u Post Op Start: 09-04-2024 End: 09-04-2024 Patient encounter procedure 09/04/2024 9:00 AM EST Office Visit Colorectal Surgery [address] [place] [address] [place] [address] [place] [address] f/u Post Op Colorectal Surgery Comment on above: f/u Post Op Start: 07-29-2024 End: 07-29-2024 Specialty Pharmacy 07/29/2024 9:00 AM EST Specialty Pharmacy [facility] [address] [place] [phone] Pharmacist, [facility] [address] [place] [address] [place] [address] REFILL - Entyvio. PA exp: 07/10/2025. ND 07/22-mult attempts [facility] Comment on above: REFILL - Entyvio. PA exp: 07/10/2025. ND 07/22-mult attempts Start: 07-17-2024 End: 07-17-2024 Patient encounter procedure 07/17/2024 10:00 AM EDT Office Visit Colorectal Surgery [address] [place] [address] [place] [address] [place] [address] f/u perianal abscess Colorectal Surgery Comment on above: f/u perianal abscess Start: 07-16-2024 End: 07-16-2024 Specialty Pharmacy 07/16/2024 9:00 AM EDT Specialty Pharmacy [facility] [address] [place] [phone] Pharmacist, [facility] [address] [place] [address] [place] [address] REFILL - Entyvio. PA exp: 07/10/2025. ND 07/22-lvm [facility] Comment on above: REFILL - Entyvio. PA exp: 07/10/2025. ND 07/22-lvm Start: 07-13-2024 End: 07-13-2024 Specialty Pharmacy 07/13/2024 9:15 AM EDT Specialty Pharmacy [facility] [address] [place], [place] [phone] Pharmacist, [facility] [address] [place] [address] [place] [address] REFILL - Entyvio. PA exp: 07/10/2025. ND 07/22- [facility] Comment on above: REFILL - Entyvio. PA exp: 07/10/2025. ND 07/22- Start: 07-01-2024 End: 07-01-2024 Specialty Pharmacy 07/01/2024 9:00 AM EDT Specialty Pharmacy [facility] [address] [place], [place] [phone] Pharmacist, [facility] [address] [place] [address] [place] [address] REFILL - Entyvio. PA exp: 07/10/2024. ND 07/22-OV req for further approvals- pt aware [facility] Comment on above: REFILL - Entyvio. PA exp: 07/10/2024. ND 07/22-OV req for further approvals- pt aware Start: 06-19-2024 End: 06-19-2024 Patient encounter procedure 06/19/2024 9:45 AM EDT Office Visit Colorectal Surgery [address] [facility] [address] [place] [address] [place] [address] [place] [address] f/u perianal abscess Colorectal Surgery Comment on above: f/u perianal abscess Start: 06-15-2024 End: 06-15-2024 Specialty Pharmacy 06/15/2024 9:00 AM EDT Specialty Pharmacy [facility] [address] [place] [phone] Pharmacist, [facility] [address] [place] [address] [place] [address] REFILL - Entyvio. PA exp 05/24/24. ND 06/24 [facility] Comment on above: REFILL - Entyvio. PA exp 05/24/24. ND 2 Start: 06-02-2024 End: 06-02-2024 Patient encounter procedure 06/02/2024 11:40 AM EDT Office Visit Gastroenterology [facility] [address] [place] [address] [place] [address] [place], [place] [phone] f/u crohns Gastroenter[facility] Comment on above: f/u crohns Start: 05-24-2024 Covid-19 Vaccine ( season) Covid-19 Vaccine ( season) [facility] Start: 05-24-2024 Covid-19 Vaccine ( season) Covid-19 Vaccine ( season) [facility] Start: 05-24-2024 Influenza vaccination Influenza Vaccine (#1) [facility] Start: 05-21-2024 End: 05-21-2024 ambulatory 05/21/2024 4:00 PM EDT Specialty Pharmacy [facility] [employer] [address] [id number] [place] [address] Pharmacist, [facility] [address] [facility] [place] [address] Delayed OB - Entyvio pens. dose due 06/15? PA exp 05/24 [facility] Comment on above: Delayed OB - Entyvio pens. dose due 06/15 ? PA exp 05/24 Start: 05-18-2024 End: 05-18-2024 Specialty Pharmacy 05/18/2024 9:00 AM EDT Specialty Pharmacy [facility] [employer] [address] [id number] [place] [address] Pharmacist, [facility] [address] [place] [address] [place] [address] REFILL - Entyvio. PA exp 05/24/24. ND 05/27. [facility] Comment on above: REFILL - Entyvio. PA exp 05/24/24. ND 4. Start: 04-20-2024 End: 04-20-2024 ambulatory 04/20/2024 4:00 PM EDT Specialty Pharmacy [facility] [address] [place] [phone] Pharmacist, [facility] [address] [place] [address] [place] [address] Delayed OB - Entyvio pens. dose due 04/29. PA exp 05/24/24. [facility] Comment on above: Delayed OB - Entyvio pens. dose due 7. PA exp 05/24/24. Start: 03-31-2024 End: 03-31-2024 ambulatory 03/31/2024 4:00 PM EDT Specialty Pharmacy [facility] [address] [place] [phone] Pharmacist, [facility] [address] [place] [address] [place] [address] Delayed OB - Entyvio pens. IV doses not yet scheduled as of 03/03/24 [facility] Comment on above: Delayed OB - Entyvio pens. IV doses not yet scheduled as of 03/03/24 Start: 03-25-2024 End: 03-25-2024 ambulatory 03/25/2024 7:30 AM EDT Procedure [facility] [address] [phone] entyvio [facility] Comment on above: entyvio Start: 03-12-2024 End: 03-12-2024 ambulatory 03/12/2024 9:00 AM EDT Procedure [facility] [address] [phone] ENTYVIO [facility] Comment on above: ENTYVIO Start: 02-25-2024 End: 02-25-2024 Patient encounter procedure 02/25/2024 3:20 PM EDT Office Visit [facility] [address] [place] [address] [place] [address] [place] [address] F/U OV following discharge from Hospital Gastroenterology [facility] Comment on above: F/U OV following discharge from Hospital Start: 09-23-2023 Depression Assessment Depression Assessment [facility] Start: 09-05-2023 End: 12-05-2023 CBC panel - Blood by Automated count CBC Lab Routine Anemia during in third trimester Expected: 09/05/2023, Expires: 12/05/2023 [facility] Work Phone: Comment on above: Expected: 09/05/2023, Expires: 4 Start: 09-05-2023 End: 12-05-2023 Ferritin [Mass/volume] in Serum or Plasma FERRITIN BLD Lab Routine Anemia during in third trimester Expected: 09/05/2023, Expires: 12/05/2023 [facility] Work Phone: Comment on above: Expected: 09/05/2023, Expires: 4 Start: 09-05-2023 End: 12-05-2023 Iron and Iron binding capacity panel - Serum or Plasma IRON + TIBC Lab Routine Anemia during in third trimester Expected: 09/05/2023, Expires: 12/05/2023 [facility] Work Phone: Comment on above: Expected: 09/05/2023, Expires: 4 Start: 09-05-2023 End: 09-05-2024 OBSTETRIC ULTRASOUND [facility]I OBSTETRIC ULTRASOUND [facility] Anc Imaging Routine 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) Expected: 09/05/2023, Expires: 09/05/2024 [facility] Work Phone: Comment on above: Expected: 09/05/2023, Expires: 4 Start: 09-05-2023 End: 12-05-2023 SYPHILIS TOTAL W/REFLEX SYPHILIS TOTAL W/REFLEX Lab Routine care, subsequent , third trimester Expected: 09/05/2023, Expires: 12/05/2023 [facility] Work Phone: Comment on above: Expected: 09/05/2023, Expires: 4 Start: 08-01-2023 End: 10-31-2023 CBC panel - Blood by Automated count CBC Lab Routine care, subsequent , second trimester Screening for diabetes mellitus Expected: 08/01/2023, Expires: 10/31/2023 [facility] Work Phone: Comment on above: Expected: 08/01/2023, Expires: 4 Start: 08-01-2023 End: 10-31-2023 GEST GLUC SCREEN, 1-HR, 50 GM, NON-FASTING GEST GLUC SCREEN, 1-HR, 50 GM, NON-FASTING Lab Routine care, subsequent , second trimester Screening for diabetes mellitus Expected: 08/01/2023, Expires: 10/31/2023 [facility] Work Phone: Comment on above: Expected: 08/01/2023, Expires: 4 Start: 08-01-2023 End: 10-31-2023 SYPHILIS TOTAL W/REFLEX SYPHILIS TOTAL W/REFLEX Lab Routine care, subsequent , second trimester Expected: 08/01/2023, Expires: 10/31/2023 [facility] Work Phone: Comment on above: Expected: 08/01/2023, Expires: 4 Start: 07-04-2023 End: 09-03-2023 CARRIER SCREEN, STANDARD CARRIER SCREEN, STANDARD Lab Routine care, subsequent , second trimester Expected: 07/04/2023, Expires: 09/03/2023 [facility] Work Phone: Comment on above: Expected: 07/04/2023, Expires: 3 Start: 07-04-2023 End: 09-03-2023 Chromosome 21 trisomy [Presence] in Blood or Tissue by Cytogenetics [id number] [id number] Lab Routine care, subsequent , second trimester Expected: 07/04/2023, Expires: 09/03/2023 [facility] Work Phone: Comment on above: Expected: 07/04/2023, Expires: 3 Start: 07-04-2023 End: 09-03-2023 HEMOGLOBIN EVALUATION CASCADE HEMOGLOBIN EVALUATION CASCADE Lab Routine care, subsequent , second trimester Expected: 07/04/2023, Expires: 09/03/2023 [facility] Work Phone: Comment on above: Expected: 07/04/2023, Expires: 3 Start: 07-04-2023 End: 09-03-2023 Hepatitis B virus surface Ag [Presence] in Serum HEP B SURF AG SCRN Lab Routine care, subsequent , second trimester Expected: 07/04/2023, Expires: 09/03/2023 [facility] Work Phone: Comment on above: Expected: 07/04/2023, Expires: 3 Start: 07-04-2023 End: 09-03-2023 Hepatitis C virus Ab [Presence] in Serum HEPATITIS C ANTIBODY IA WITH CONFIRMATION Lab Routine care, subsequent , second trimester Expected: 07/04/2023, Expires: 09/03/2023 [facility] Work Phone: Comment on above: Expected: 07/04/2023, Expires: 3 Start: 07-04-2023 End: 09-03-2023 HIV 1+2 Ab [Presence] in Serum or Plasma by Immunoassay HIV 1 2 COMBO(AG/AB),WITH REFLEX TO DIFFERENTIATION Lab Routine care, subsequent , second trimester Expected: 07/04/2023, Expires: 09/03/2023 [facility] Work Phone: Comment on above: Expected: 07/04/2023, Expires: 3 Start: 07-04-2023 End: 07-04-2024 OBSTETRIC ULTRASOUND [facility]I OBSTETRIC ULTRASOUND [facility] Anc Imaging Routine care, subsequent , second trimester Expected: 07/04/2023, Expires: 07/04/2024 [facility] Work Phone: Comment on above: Expected: 07/04/2023, Expires: 4 Start: 07-04-2023 End: 09-03-2023 RUBELLA IGG AB RUBELLA IGG AB Lab Routine care, subsequent , second trimester Expected: 07/04/2023, Expires: 09/03/2023 [facility] Work Phone: Comment on above: Expected: 07/04/2023, Expires: 3 Start: 07-04-2023 End: 09-03-2023 SYPHILIS TOTAL W/REFLEX SYPHILIS TOTAL W/REFLEX Lab Routine care, subsequent , second trimester Expected: 07/04/2023, Expires: 09/03/2023 [facility] Work Phone: Comment on above: Expected: 07/04/2023, Expires: 3 Start: 07-04-2023 End: 09-03-2023 TYPE + SCREEN TYPE + SCREEN Blood Bank Routine care, subsequent , second trimester Expected: 07/04/2023, Expires: 09/03/2023 [facility] Work Phone: Comment on above: Expected: 07/04/2023, Expires: 3 Start: 05-24-2023 Covid-19 Vaccine ( season) Covid-19 Vaccine ( season) [facility] Start: 05-24-2023 Influenza vaccination [facility] Start: 04-23-2023 Influenza vaccination Flu vaccine (Season Ended) [facility] Start: 09-23-2022 DEPRESSION ASSESSMENT DEPRESSION ASSESSMENT [facility] Start: 05-24-2021 Influenza vaccination Flu vaccine (#1) [facility] Start: 04-05-2021 COVID-19 Vaccine (3 - Booster for Pfizer series) COVID-19 Vaccine (3 - Booster for Pfizer series) [facility] Start: 04-05-2021 COVID-19 VACCINE (3 - Pfizer series) COVID-19 VACCINE (3 - Pfizer series) [facility] Start: 03-08-2021 COVID-19 VACCINE (3 - Pfizer risk series) COVID-19 VACCINE (3 - Pfizer risk series) [facility] Start: 05-24-2020 Influenza vaccination [place] Start: 2016 PAP TESTING PAP TESTING [facility] Start: 2016 Screening for malignant neoplasm of cervix [facility] Start: 2014 DTaP/Tdap/Td vaccine (1 - Tdap) DTaP/Tdap/Td vaccine (1 - Tdap) [place] Start: 2014 DTaP/Tdap/Td vaccine (2 - Tdap) DTaP/Tdap/Td vaccine (2 - Tdap) [facility] Start: 2014 HEPATITIS A (1 of 2 - Risk 2-dose series) HEPATITIS A (1 of 2 - Risk 2-dose series) [facility] Start: 2014 Hepatitis A Vaccine (1 of 2 - Risk 2-dose series) Hepatitis A Vaccine (1 of 2 - Risk 2-dose series) [facility] Start: 2014 Hepatitis B Vaccine (1 of 3 - 19+ 3-dose series) Hepatitis B Vaccine (1 of 3 - 19+ 3-dose series) [facility] Start: 2014 SHINGRIX VACCINE (1 of 2) SHINGRIX VACCINE (1 of 2) [facility] Start: 2013 Hepatitis C screening Hepatitis C screen [facility] Start: 2013 HEPATITIS C SCREENING HEPATITIS C SCREENING [facility] Start: 2013 HIV SCREENING HIV SCREENING [facility] Start: 2011 Screening for Chlamydia trachomatis Chlamydia screen [place] Start: 2010 HIV screening HIV screen [facility] Start: 2007 Depression Screen Depression Screen [facility] Start: 2006 HPV vaccine (1 - 2-dose series) HPV vaccine (1 - 2-dose series) [facility] Start: 2005 Meningococcal B Vaccine: Consider Based On Risk (1 of 4 - Increased Risk) Meningococcal B Vaccine: Consider Based On Risk (1 of 4 - Increased Risk) [facility] Start: 2005 MENINGOCOCCAL B: Consider based on risk (1 of 4 - Increased Risk Bexsero 2-dose series) MENINGOCOCCAL B: Consider based on risk (1 of 4 - Increased Risk Bexsero 2-dose series) [facility] Start: 2005 MENINGOCOCCAL B: Consider based on risk (1 of 4 - Increased Risk) MENINGOCOCCAL B: Consider based on risk (1 of 4 - Increased Risk) [facility] Start: 10-01-2001 Varicella vaccine (2 of 2 - 2-dose childhood series) Varicella vaccine (2 of 2 - 2-dose childhood series) [facility] Start: 2001 PNEUMOCOCCAL (1 - PCV) PNEUMOCOCCAL (1 - PCV) [facility] Start: 2001 Pneumococcal vaccination Pneumococcal Vaccine (1 of 2 - PCV) [facility] Start: 12-11-2000 MMR (2 of 2 - Risk 2-dose series) MMR (2 of 2 - Risk 2-dose series) [facility] Start: 12-11-2000 MMR Vaccine (2 of 2 - Risk 2-dose series) MMR Vaccine (2 of 2 - Risk 2-dose series) [facility] Start: 1996 HEPATITIS A (1 of 2 - Risk 2-dose series) HEPATITIS A (1 of 2 - Risk 2-dose series) [facility] Start: 1996 Varicella vaccine (1 of 2 - 2-dose childhood series) Varicella vaccine (1 of 2 - 2-dose childhood series) [place] Start: 1995 Hepatitis C screening Hepatitis C screen [facility] Bacteria identified in Urine by Culture URINE CULTURE Microbiology Routine care, subsequent , second trimester [facility] CARRIER SCREEN, STANDARD CARRIER SCREEN, STANDARD Lab Routine care, subsequent , second trimester 07/05/2023 10:[facility]: Chromosome 21 trisom y [Presence] in Blood or Tissue by Cytogenetics [id number] PLUS Lab Routine care, subsequent , second trimester 07/05/2023 10:02 [facility]: HEMOGLOBIN EVALUATIO N CASCADE HEMOGLOBIN EVALUATION CASCADE Lab Routine care, subsequent , second trimester 07/05/2023 10:02 AM [facility] Work Phone: Hepatitis B virus surface Ag [Presence] in Serum HEP B SURF AG SCRN Lab Routine care, subsequent , second trimester 07/05/2023 10:02 AM [facility] Work Phone: Hepatitis C virus Ab [Presence] in Serum HEPATITIS C ANTIBODY IA WITH CONFIRMATION Lab Routine care, subsequent , second trimester 07/05/2023 10:02 AM [facility] Work Phone: HIV 1+2 Ab [Presence ] in Serum or Plasma by Immunoassay HIV 1 2 COMBO(AG/AB),WITH REFLEX TO DIFFERENTIATION Lab Routine care, subsequent , second trimester 07/05/2023 10:02 AM [facility] Work Phone: End: 01-19-2024 ILEOSCOPY ILEOSCOPY Endoscopy Routine Diarrhea, unspecified type 1 Occurrences starting 01/18/2023 until 01/19/2024 [facility] Work Phone: Comment on above: 1 Occurrences starting 01/18/2023 until 01/19/2024 RUBELLA IGG AB RUBELLA IGG AB L ab Routine care, subsequent , second trimester 07/05/2023 10:02 AM [facility] Work Phone: SYPHILIS TOTAL W/REFLEX SYPHILIS TOTAL W/REFLEX Lab Routine care, subsequent , second trimester 07/05/2023 10:02 AM [facility] Work Phone: TYPE + SCREEN TYPE + SCREEN Blood Bank Routine care, subsequent , second trimester 07/05/2023 10:02 AM [facility] Work Phone: End: 08-10-2020 Urinalysis, reflex to microscopic Urinalysis, reflex to microscopic Lab STAT One Time for 1 Occurrences starting 08/10/2020 until 08/10/2020 [facility], [place] Comment on above: One Time for 1 Occurrences starting 07/24 until 08/10/2020 XR ACUTE ABD SERIES CHEST 1 VW XR ACUTE ABD SERIES CHEST 1 VW Imaging STAT 08/10/2020 9:27 AM EST [facility], [place] [facility] Immunizations Immunization Date Immunization Notes Care Provider Elvira buckley 10-27-2023 measles, mumps and rubella virus vaccine Patricia Ramirez ISATUM Work Phone: [facility] 09-19-2023 respiratory syncytia l virus (RSV) vaccine, bivalent (ABRYSVO) [address] 09-19-2023 tetanus toxoid, reduced diphtheria toxoid, and acellular pertussis vaccine, adsorbed [address] 07-04-2023 influenza, injectabl e, quadrivalent, contains preservative [employer] RN [facility] 07-04-2023 influenza virus vaccine, unspecified formulation Maddie Sevilla RN [facility] 02-08-2021 COVID-19 original vaccine, age 12+ yr, monovalent (PFIZER-BIONTECH - PURPLE TOP) Zhane Quinones MD Work Phone: [facility] 01-18-2021 COVID-19 original vaccine, age 12+ yr, monovalent (PFIZER-BIONTECH - PURPLE TOP) Zhane Quinones MD Work Phone: [facility] 08-12-2015 influenza virus vaccine, whole virus Zhane Quinones MD Work Phone: [facility] 08-12-2015 influenza, whole Everett SALAM [facility] 02-05-2015 tetanus toxoid, reduced diphtheria toxoid, and acellular pertussis vaccine, adsorbed Rinkuit Lisandro [facility] Comment on above: Reason for Medicatio n: Other (see comment) 07-09-2001 varicella virus vaccine Zhane Quinones MD Work Phone: [facility] 11-13-2000 diphtheria, tetanus toxoids and acellular pertussis vaccine, unspecified formulation Zhane Quinones MD Work Phone: [facility] 11-13-2000 DTaP, unspecified formulation Karlos RAWLS [facility] 11-13-2000 measles, mumps and rubella virus vaccine Zhane Quinones MD Work Phone: [facility] 11-13-2000 poliovirus vaccine, inactivated Zhane Quinones MD Work Phone: [facility] 11-13-2000 poliovirus vaccine, unspecified formulation Karlos RAWLS [facility] NEGATED: Highlighted row has not occurred!04-08-2014 pneumococcal polysaccharide vaccine, 23 valent [facility] NEGATED: Highlighted row has not occurred!03-20-2014 influenza, seasonal, injectable [facility] Comment on above: Result Note: obs Payers Date Payer Category Payer Self-pay 2022 Medicaid [employer] [facility] [id number] 2022-Present [phone] [address] [place] [address] Medicaid [id number] 2022 Unknown [id number] 2021 Unknown 2017 Unknown [facility] MEDICAID xxxxxxxxxxx 2017-Present [phone] CLAIMS DEPARTMENT [address] [place] [address] xxxxxxxxxxx [id number] 1995 Unknown [id number] [id number]3 1995 Unknown [id number] 2.16.840.1.272636.3.579.2.732 1995 Unknown [id number] 2.16840.1.021318.3.579.2.732 1995 Unknown [id number] 2.16840.1.416045.3.579.2.174 1995 Unknown [id number] 2.16.840.1.899650.3.579.2.727 1995 Unknown [id number] 2.16840.1.389765.3.579.2.72 1995 Unknown [id number] 2.16840.1.242175.3.579.2.72 1995 Unknown [id number] 2.16840.1.063103.3.579.2.72 1995 Unknown [id number] 2.16840.1.293088.3.579.272 1995 Unknown [id number] 2.840.1.477121.3.579.2.72 1995 Unknown [id number] 2.16840.1.279988.3.579.2.72 1995 Unknown [id number] 2.16840.1.967444.3.579.2. 1995 Unknown [id number] 2.16840.1.826325.3.579.2.72 1995 Unknown [id number] 2.840.1.622913.3.579.2.72 1995 Unknown [id number] 2.16840.1.971012.3.579.2.72 1995 Unknown [id number] 2.16840.1.115512.3.579.272 1995 Unknown [id number] 2.16840.1.461964.3.579.2.72 1995 Unknown [id number] 2.16840.1.666828.3.579.2.72 1995 Unknown [id number] 2.16.840.1.434679.3.579.2.727 1995 Unknown [id number] 2.16.840.1.113486.3.579.2. 1995 Unknown [id number] 2.16.840.1.395285.3.579.2.727 1995 Unknown [id number] 2.16.840.1.494334.3.579.2. 1995 Unknown [id number] 2.16.840.1.997390.3.579.2.72 1995 Unknown [id number] 2.16.840.1.712736.3.579.2. 1995 Unknown [id number] 2.16840.1.451760.3.579.2. 1995 Unknown [id number] 2.16840.1.697552.3.579.2.72 1995 Unknown [id number] 2.16840.1.953409.3.579.2.72 1995 Unknown [id number] 2.16840.1.980951.3.579.2. 1995 Unknown [id number] 2.16840.1.665547.3.579.2. 1995 Unknown [id number] 2.16840.1.007155.3.579.2.727 1959 Unknown [id number] Unknown [id number] 2.16840.1.294402.3.579.2.531 Unknown [id number] 2.16840.1.165992.3.579.2.531 Social History Date Type Detail Facility Start: 08-10-2020 End: 01-18-2023 Tobacco smoking status NHIS Former smoker [facility] End: 01-23-2019 History of tobacco use Current smoker [place] End: 01-23-2019 History of tobacco use Cigarette Sm[place] Start: 08-10-2020 End: 07-04-2023 Cigarettes smoked current (pack per day) - Reported [facility] Start: 08-10-2020 End: 01-18-2023 Tobacco use and exposure Never used [employer] [facility] Start: 08-10-2020 End: 12-24-2022 Alcohol intake Current non-drinker of alcohol (finding) [employer] [facility] Start: 1995 [facility] Assigned At [facility] Start: 12-14-2022 End: 12-24-2022 Exposure to SARS-CoV-2 (event) [facility] sure [facility] [place] Exposure to SARS-CoV -2 (event) Unable to assess [facility] smoking status Never [facility] Start: 03-05-2023 End: 07-04-2023 Sex Assigned At Female [facility] Start: 12-24-2022 History SDOH Alcohol Frequency 3 [employer] Phone: Start: 12-24-2022 History SDOH Alcohol Std Drinks 1 [employer] Phone: Start: 01-18-2023 End: 04-29-2023 Alcohol intake Current drinker of alcohol (finding) [facility] Start: 01-18-2023 Tobacco Comment 3 per day [facility] Start: 08-20-2018 Alcohol Comment 1 per week [facility] Start: 1995 Sex Assigned At Female [facility] Start: 12-19-2020 Gender identity Identifies as female gender (finding) [facility] Start: 12-19-2020 Sexual orientation Choose not to dis close [facility] Tobacco [facility] Comment on above: Denies Tobacco smoking status No Smokin g Status Entered [facility] Tobacco smoking consumption unknown [facility] Start: 07-04-2023 End: 02-25-2024 Alcohol intake Ex-drinker (finding) [facility] Start: 02-13-2023 [facility] Goals Date Patient Goal Desired Activity /State Personal health goal Personal health goal Functional Status Date Assessment Result Facility 10-02-2024 Functional Status N/A [facility] 07-13-2024 Functional Status N/A [facility] 06-30-2024 Functional Status N/A [facility] 04-08-2024 Functional Status N/A [facility] 03-08-2024 Functional Status N/A [facility] 03-04-2024 Functional Status N/A [facility] 12-21-2023 Functional Status N/A [facility] 12-07-2023 Functional Status N/A [facility] 09-06-2023 Functional Status N/A [facility] 09-06-2023 Functional Status N/A [facility] 05-25-2023 Functional Status N/A [facility] 04-26-2023 Functional Status N/A [facility] 04-14-2023 Functional Status N/A [facility] 03-10-2023 Functional Status N/A [facility] 01-25-2023 Functional Status N/A [facility] 01-13-2023 Functional Status N/A [facility] 01-09-2023 Functional Status N/A [facility] 09-29-2022 Functional Status N/A [facility] 05-30-2022 Functional Status N/A [facility] Clinical Notes 09-11-2018 to 10-02-2024 Telephone Encounter - Heather Leary RN - 08/12/2024 2:40 PM ESTTelephone Encounter - Heather Leary RN - 08/12/2024 2:40 PM Solis Vicente RN - 07/17/2024 10:56 AM EDT Note Date & Type Note Facility 10-02-2024 Hospital Discharg e instructions Patient Education 10/02/2024 17:49:33 Abdominal Pain, Adult Abdominal Pain, Adult Pain in the abdomen (abdominal pain) can be caused by many things. In most cases, it gets better with no treatment or by being treated at home. But in some cases, it can be serious. Your health care provider will ask questions about your medical history and do a physical exam to try to figure out what is causing your pain. Follow these instructions at home: Medicines Take iosq-ijq-ziuerwi and prescription medicines only as told by your provider. Do not take medicines that help you poop (laxatives) unless told by your provider. General instructions Watch your condition for any changes. Drink enough fluid to keep your pee (urine) pale yellow. Contact a health care provider if: Your pain changes, gets worse, or lasts longer than expected. You have severe cramping or bloating in your abdomen, or you vomit. Your pain gets worse with meals, after eating, or with certain foods. You are constipated or have diarrhea for more than 2 3 days. You are not hungry, or you lose weight without trying. You have signs of dehydration. These may include: ?Dark pee, very little pee, or no pee. ?Cracked lips or dry mouth. ?Sleepiness or weakness. You have pain when you pee (urinate) or poop. Your abdominal pain wakes you up at night. You have blood in your pee. You have a fever. Get help right away if: You cannot stop vomiting. Your pain is only in one part of the abdomen. Pain on the right side could be caused by appendicitis. You have bloody or black poop (stool), or poop that looks like tar. You have trouble breathing. You have chest pain. These symptoms may be an emergency. Get help right away. Call 911. Do not wait to see if the symptoms will go away. Do not drive yourself to the hospital. This information is not intended to replace advice given to you by your health care provider. Make sure you discuss any questions you have with your health care provider. Document Revised: 06/26/2023 Document Reviewed: 06/26/2023 [employer] Patient Education 2023 [employer] 10/02/2024 17:49:33 Crohn's Disease Crohn's Disease Crohn's disease is a long-lasting (chronic) disease that affects the gastrointestinal (GI) tract. Crohn's disease often causes irritation and inflammation in the small intestine and the beginning of the large intestine, but it can affect any part of the GI tract. Crohn's disease is part of a group of illnesses that are known as inflammatory bowel disease (IBD). Crohn's disease may start slowly and get worse over time. Symptoms may come and go. They may also go away for months or even years at a time (remission). What are the causes? The exact cause of this condition is not known. It may involve a response that causes your body's disease-fighting system (immune system) to attack healthy cells and tissues (autoimmune response). Bacteria, genes, and your environment may also play a role. What increases the risk? The following factors may make you more likely to develop this condition: Having a family member who has Crohn's disease, another IBD, or an autoimmune condition. Using products that contain nicotine or tobacco, such as cigarettes and e-cigarettes. Being in your 20s. Having Eastern ancestry. What are the signs or symptoms? The main symptoms of this condition involve your GI tract. These include: Diarrhea. Pain or cramping in the abdomen commonly felt in the lower right side of the abdomen. Frequent watery or bloody stools. Constipation. This may mean having: ?Fewer bowel movements in a week than normal. ?Difficulty having a bowel movement. ?Stools that are dry, hard, or larger than normal. Rectal bleeding or pain. An urgent need to have a bowel movement. The feeling that you are not finished having a bowel movement. Other symptoms may include: Unexplained weight loss. Tiredness (fatigue). Fever. Nausea or appetite loss. Joint pain. Vision changes. Red bumps or sores on the skin. Sores inside the mouth. How is this diagnosed? This condition may be diagnosed based on: Your symptoms and medical history. A physical exam. Tests, which may include: ?Blood tests. ?Stool sample tests. ?Imaging tests, such as X-rays and CT scans. ?Tests to examine the inside of your intestines using a long, flexible tube that has a light and a camera on the end (colonoscopy). ?A procedure to remove tissue samples from inside your bowel for testing (biopsy). You may need to work with a health care provider who specializes in diseases of the digestive tract (clinical radiologist). How is this treated? There is no cure for this condition, and it affects each person differently. Treatment can help you manage your symptoms. Your treatment may include: Medicines. These may be used by themselves or with other treatments (combination therapy). You may be given medicines that help to: ?Reduce inflammation. ?Control your immune system activity. ?Fight infections. ?Relieve cramps and prevent diarrhea. ?Control your pain. Surgery. You may need surgery if: ?Medicines and other treatments are not working anymore. ?You develop complications from severe Crohn's disease. ?A section of your intestine becomes so damaged that it needs to be removed. Lifestyle changes: ?Maintaining eating or drinking restrictions. ?Reducing or eliminating use of alcohol or nicotine. Follow these instructions at home: Medicines Take sayv-bnc-snjryzj and prescription medicines only as told by your health care provider. If you were prescribed an antibiotic, take it as told by your health care provider. Do not stop taking the antibiotic even if you start to feel better. Avoid taking ibuprofen or other NSAID medicines if possible. These can make Crohn's disease worse. Eating and drinking Talk with your health care provider or a registered dietitian about what diet is best for you. Drink enough fluid to keep your urine pale yellow. If you are taking steroids to reduce inflammation, get plenty of calcium in your diet to help keep your bones healthy. You may also consider taking a calcium supplement with vitamin D. Keep a food diary to identify foods that make your symptoms better or worse, and avoid foods that cause symptoms. Follow instructions from your health care provider about eating or drinking restrictions if you have worsening symptoms (flare-up). If you drink alcohol: ?Limit how much you have to: ?0 1 drink a day for women who are not . ?0 2 drinks a day for men. ?Know how much alcohol is in a drink. In the [place] one drink equals one 12 oz bottle of beer (355 mL), one 5 oz glass of wine (148 mL), or one 1 oz glass of hard liquor (44 mL). General instructions Make sure you get all the vaccines that your health care provider recommends, especially pneumonia (pneumococcal) and flu (influenza) vaccines. Do not use any products that contain nicotine or tobacco. These products include cigarettes, chewing tobacco, and vaping devices, such as e-cigarettes. If you need help quitting, ask your health care provider. Exercise every day, or as often as told by your health care provider. Keep all follow-up visits. This is important. Contact a health care provider if: You have diarrhea, cramps in your abdomen, and other GI problems that are present almost all the time. Your symptoms do not improve with treatment, your symptoms get worse, or you develop new symptoms. You cannot pass stools. You continue to lose weight. You develop a rash or sores on your skin. You develop eye problems. You have a fever. Get help right away if: You have bloody diarrhea. You have severe pain in your abdomen. These symptoms may be an emergency. Get help right away. Call 911. Do not wait to see if the symptoms will go away. Do not drive yourself to the hospital. Summary Crohn's disease affects each person differently. The cause of this condition is not known, but it may involve a response that causes your body's immune system to attack healthy cells and tissues. There are multiple treatment options that can help you manage the condition. Talk with your health care provider or a registered dietitian about what diet is best for you. Make sure you get all the vaccines that your health care provider recommends, especially pneumonia (pneumococcal) and flu (influenza) vaccines. Get help right away if you have bloody diarrhea or severe pain in your abdomen. This information is not intended to replace advice given to you by your health care provider. Make sure you discuss any questions you have with your health care provider. Document Revised: 03/15/2022 Document Reviewed: 03/15/2022 [employer] Patient Education 2023 [employer]. Follow Up Care 10/02/2024 13:52:38 With:Gumaro Acevedo Address: [address] [place] [address] [place] [address]- [phone] Business (1) When:10/05/2024 17:31:37 [facility] 10-02-2024 Note ED Patient Education Note Gastroenterology Abdominal Pain, Adult Pain in the abdomen (abdominal pain) can be caused by many things. In most cases, it gets better with no treatment or by being treated at home. But in some cases, it can be serious. Your health care provider will ask questions about your medical history and do a physical exam to try to figure out what is causing your pain. Follow these instructions at home: Medicines ??? Take [id number]-[id number] and prescription medicines only as told by your provider. ??? Do not take medicines that help you poop (laxatives) unless told by your provider. General instructions ??? Watch your condition for any changes. ??? Drink enough fluid to keep your pee (urine) pale yellow. Contact a health care provider if: ??? Your pain changes, gets worse, or lasts longer than expected. ??? You have severe cramping or bloating in your abdomen, or you vomit. ??? Your pain gets worse with meals, after eating, or with certain foods. ??? You are constipated or have diarrhea for more than 2?3 days. ??? You are not hungry, or you lose weight without trying. ??? You have signs of dehydration. These may include: ? Dark pee, very little pee, or no pee. ? Cracked lips or dry mouth. ? Sleepiness or weakness. ??? You have pain when you pee (urinate) or poop. ??? Your abdominal pain wakes you up at night. ??? You have blood in your pee. ??? You have a fever. Get help right away if: ??? You cannot stop vomiting. ??? Your pain is only in one part of the abdomen. Pain on the right side could be caused by appendicitis. ??? You have bloody or black poop (stool), or poop that looks like tar. ??? You have trouble breathing. ??? You have chest pain. These symptoms may be an emergency. Get help right away. Call 911. ??? Do not wait to see if the symptoms will go away. ??? Do not drive yourself to the hospital. This information is not intended to replace advice given to you by your health care provider. Make sure you discuss any questions you have with your health care provider. Document Revised: 06/26/2023 Document Reviewed: 06/26/2023 [employer] Patient Education ? 2023 [employer] Immunology Crohn's Disease Crohn's disease is a long-lasting (chronic) disease that affects the gastrointestinal (GI) tract. Crohn's disease often causes irritation and inflammation in the small intestine and the beginning of the large intestine, but it can affect any part of the GI tract. Crohn's disease is part of a group of illnesses that are known as inflammatory bowel disease (IBD). Crohn's disease may start slowly and get worse over time. Symptoms may come and go. They may also go away for months or even years at a time (remission). What are the causes? The exact cause of this condition is not known. It may involve a response that causes your body's disease-fighting system (immune system) to attack healthy cells and tissues (autoimmune response). Bacteria, genes, and your environment may also play a role. What increases the risk? The following factors may make you more likely to develop this condition: ??? Having a family member who has Crohn's disease, another IBD, or an autoimmune condition. ??? Using products that contain nicotine or tobacco, such as cigarettes and e-cigarettes. ??? Being in your 20s. ??? Having Eastern ancestry. What are the signs or symptoms? The main symptoms of this condition involve your GI tract. These include: ??? Diarrhea. ??? Pain or cramping in the abdomen commonly felt in the lower right side of the abdomen. ??? Frequent watery or bloody stools. ??? Constipation. This may mean having: ? Fewer bowel movements in a week than normal. ? Difficulty having a bowel movement. ? Stools that are dry, hard, or larger than normal. ??? Rectal bleeding or pain. ??? An urgent need to have a bowel movement. ??? The feeling that you are not finished having a bowel movement. Other symptoms may include: ??? Unexplained weight loss. ??? Tiredness (fatigue). ??? Fever. ??? Nausea or appetite loss. ??? Joint pain. ??? Vision changes. ??? Red bumps or sores on the skin. ??? Sores inside the mouth. How is this diagnosed? This condition may be diagnosed based on: ??? Your symptoms and medical history. ??? A physical exam. ??? Tests, which may include: ? Blood tests. ? Stool sample tests. ? Imaging tests, such as X-rays and CT scans. ? Tests to examine the inside of your intestines using a long, flexible tube that has a light and a camera on the end (colonoscopy). ? A procedure to remove tissue samples from inside your bowel for testing (biopsy). You may need to work with a health care provider who specializes in diseases of the digestive tract (clinical radiologist). How is this treated? There is no cure for this condition, and it affects each person differently. (more content not included)... [facility] 10-02-2024 Evaluation + Plan note Diagnostic Tests PendingUA with [facility] 10/02/24 [facility] 08-12-2024 Telephone encounter Note Images from the original note were not included. Attempted to call patient. Left detailed VM for patient to call [facility] at [phone] SHAHBAZ Rosado Rebecca, RPh Umbel, Jonathan, DO; Heather Leary RN Noted, thank you! I'll keep trying to reach her. Amina ----- Message ----- From: Lee Ann Humphries DO Sent: 08/12/2024 11:25 AM EST To: Heather Leary RN; Zaira Campbell RPh Yes, she should still continue her Entyvio after surgery. I will have our office try to reach out to her as well. Thank you for the update. Lee Ann Humphries DO ----- Message ----- From: Zaira Campbell RPh Sent: 08/12/2024 11:19 AM EST To: DO Christelle Guillaume Dr[facility] has been unable to reach patient to set up Entyvio refill shipment after several attempts. Is she continuing Entyvio at this time? I see that she had surgery a few weeks ago. Thanks, Amina [facility] 08-12-2024 Miscellaneous Notes Images from the original note were not included. Attempted to call patient. Left detailed VM for patient to call [facility] at [phone] SHAHBAZ Rosado Rebecca, RPh Umbel, Jonathan, DO; Heather Leary RN Noted, thank you! I'll keep trying to reach her. Amina ----- Message ----- From: Lee Ann Humphries DO Sent: 08/12/2024 11:25 AM EST To: Heather Leary RN; Zaira Campbell [facility] Yes, she should still continue her Entyvio after surgery. I will have our office try to reach out to her as well. Thank you for the update. Lee Ann Humphries DO ----- Message ----- From: Zaira Campbell, [facility] Sent: 08/12/2024 11:19 AM EST To: DO Christelle Guillaume Dr[facility] has been unable to reach patient to set up Entyvio refill shipment after several attempts. Is she continuing Entyvio at this time? I see that she had surgery a few weeks ago. Thanks, Amina documented in this encounter [facility] 07-20-2024 Note HNO ID: [id number] Author: ?, ?, ? Service: ? Author Type: ? Type: Plan of Care Filed: 07/20/2024 16:18 Note Text: PHARMACY BEDSIDE DELIVERY SERVICE Patient Name: Rloa Aguilar The marked outpatient medications were filled at [facility] pharmacy and picked up at the pharmacy by MOTHER, RASHI DELUCA. Medication List START taking these medications oxyCODONE IR 5 mg immediate release tablet Commonly known as: ROXICODONE Take 1 tablet by mouth every 6 hours as needed for pain for up to 10 days. CONTINUE taking these medications * ENTYVIO PEN 108 mg/0.68 mL pen Generic drug: vedolizumab Inject 108 mg (1 pen) subcutaneously every other week. * vedolizumab 108 mg/0.68 mL pen Commonly known as: ENTYVIO PEN Inject 108mg (1 pen) subcutaneously every other week. * This list has 2 medication(s) that are the same as other medications prescribed for you. Read the directions carefully, and ask your doctor or other care provider to review them with you. You might also be taking other medications not listed above. If you have questions about any of your other medications, talk to the person who prescribed them or your Primary Care Provider. Araceli Zelaya PAGER: [phone] July 20, 2024 4:18 PM [facility] 07-20-2024 Note HNO ID: [id number] Author: BRANNON SCHREIBER APRN.WATER RESOURCE MANAGER Service: Anesthesiology Author Type: Nurse Assembly Line Machine Operator Type: Anesthesia Procedure Notes Filed: 07/20/2024 12:48 Note Text: ANESTHESIOLOGY PROCEDURE NOTE Airway General Information Procedure Start Time/Medication Administration: 07/20/2024 12:35 PM Procedure End Time: 07/20/2024 12:35 PM Patient location during procedure: OR Timeout Performed Pre-procedure: timeout performed Consent Obtained: Yes Patient identity confirmed: arm band and patient Staffing Anesthesiologist: Radha Arnold MD WATER RESOURCE MANAGER: Brannon Schreiber APRN.WATER RESOURCE MANAGER Performed by: WATER RESOURCE MANAGER Indications and Patient Condition Indications for airway management: anesthesia Preoxygenated: yes anesthesia circuit Patient position: sniffing Method: asleep Cricoid Pressure: No Manual In-Line Stabilization: No Difficult Mask: No Final Airway Details Final airway type: supraglottic airway Final Supraglottic Airway: i-gel Size 4 Seal Adequate: yes Failed airway: no Unrecognized esophageal intubation: no Airway not difficult SIGNATURE: Brannon Schreiber APRN.WATER RESOURCE MANAGER PATIENT NAME: Rola Aguilar DATE: July 20, 2024 TIME: 12:47 PM CSN: [id number] [facility] 07-17-2024 Nurse Note Education packet given for EUA/ I&D/ Fistulotomy/ seton on July 20. Discussed pre op instructions in detail. She will arrive 2 hours before surgery for anesthesia clearance. Surgery time is 12 and she is aware. No other questions or concerns at this time. [facility] 07-17-2024 Nurse Note Education packet given for EUA/ I&D/ Fistulotomy/ seton on July 20. Discussed pre op instructions in detail. She will arrive 2 hours before surgery for anesthesia clearance. Surgery time is 12 and she is aware. No other questions or concerns at this time. documented in this encounter [facility] 07-17-2024 History of Presen t illness Narrative COLORECTAL SURGERY July 17, 2024 Rola Aguilar 28 year old Chief Complaint: crohn's disease with perianal fistula History of Present Illness: Rola Aguilar is a 28 year old female who presents to the office for evaluation of crohn's disease with perianal fistula. She was last seen in the office on 10/18/23. 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 She has been on humira, stellara and is currently on Entyvio. She is under the care of Dr Lee Ann Humphries. Ileoscopy on 01/20/24: - Crohn's disease with ileitis. Inflammation was found. This was mild in severity. Biopsied Colonoscopy on 01/20/24: - Perianal fistula and anal canal stenosis found on perianal exam. - Stricture in the sigmoid colon. - Crohn's disease. Inflammation was found from the anus to the sigmoid colon. This was moderate in severity, unchanged compared to previous examinations. Biopsied Pathology: A. Small bowel, ileum, biopsy: - Chronic minimally inflamed enteritis; negative for pyloric gland metaplasia or dysplasia. B. Colon, rectosigmoid, biopsy: - Chronic mildly inflamed colitis; negative for dysplasia CT Abdomen/pelvis on 01/18/24 IMPRESSION: Diffuse colonic wall thickening and pericolonic stranding changes consistent with colitis. Partially imaged seton in the perianal region Prior A/P from 10/18/23: Rola Aguilar is a 28 year old female with a diverting ostomy (Crohn's) and in her third trimester. Today we discussed her ostomy output and how to stay hydrated for the rest of her . She will see me or Dr Tai 3 months post-operatively to discuss reversal and also establish care with Dr Villa for GI. PAST MEDICAL HISTORY Diagnosis Date Crohn's disease (HCC) History of transfusion 2017 anemia noted prior to surgery Migraine with aura Perianal abscess Seasonal allergies PAST SURGICAL HISTORY Procedure Laterality Date COLONOSCOPY GEN ANES 10/20/2020 EXCISION PILONIDAL CYST/SINUS SIMPLE 06/2016 PAST SURGICAL HISTORY OF 09/10/2018 Laparoscopic creation of diverting loop ileostomy, laparoscopic TAP block, examination under anesthesia with flexible sigmoidoscopy with biopsies, incision and drainage of complex perianal and supralevator abscesses with drain and seton placement. PAST SURGICAL HISTORY OF 08/26/2018 Exam under anesthesia, flexible sigmoidoscopy, incision and drainage of deep postanal space abscess, seton and drain placement. PAST SURGICAL HISTORY OF iliostomy Current Outpatient Medications Medication Sig Dispense Refill vedolizumab (ENTYVIO PEN) 108 mg/0.68 mL pen Inject 108mg (1 pen) subcutaneously every other week. 1.36 mL 0 vedolizumab (ENTYVIO PEN) 108 mg/0.68 mL pen Inject 108 mg (1 pen) subcutaneously every other week. 2 Each 11 No current facility-administered medications for this visit. ALLERGIES Allergen Reactions Hydromorphone Itching FAMILY HISTORY Problem Relation Age of Onset Hodgkin Lymphoma Mother NON hodgkin Colon Cancer Other Social History Tobacco Use Smoking status: Former Current packs/day: 0.50 Types: Cigarettes Smokeless tobacco: Never Tobacco comments: 3 per day Vaping Use Vaping status: Never Used Substance Use Topics Alcohol use: Not Currently Comment: 1 per week Drug use: No Physical Exam: LMP 01/30/2023 (Exact Date) General Appearance: Well appearing, alert, in no acute distress, well-hydrated, well nourished. Skin: Skin color, texture, turgor normal Head: Normocephalic Oropharynx: Lips, mucosa, and tongue normal Neck: Supple Lungs: breathing unlabored on room air Extremities: No deformities, no weakness Neuro: Gait normal Abdomen: Normal abdominal exam Anorectal: External exam reveals: see below Journeyman Machinist present: yes The sensitive examination was discussed with the Patient or Patient's Authorized Oncology Account Specialist. As applicable, any other physician, advance practice provider, medical student, or other health professional student that will be observing or involved in the sensitive examination for educational or training purposes was discussed with the Patient or Authorized Oncology Account Specialist. The Patient or Authorized Oncology Account Specialist has agreed to proceed with the sensitive examination. (Sensitive examination includes inspection and/or palpation of the breasts, pelvis, prostate and anorectal regions) Assessment Assessment and Plan: Rola Aguilar is a 28 year old female with a palpable right posterior lateral abscess on PE. It is draining but will likely need OR intervention as the secondary opening is not wide or mature enough. Due to her pain and swelling we are going to try and obtain OR time Saturday to perform an EUA. Medical Decision Making: Data Reviewed: Tests & Documents Reviewed/ordered: Review of prior operative reports I have independently interpreted: CT Abdomen, CT Pelvis I have discussed Rola Aguilar's treatment plan and/or results with . Shaq Thakkar MD Colorectal Surgery documented in this encounter [facility] 07-17-2024 Note HNO ID: [id number] Author: SHAQ THAKKAR MD Service: ? Author Type: Physician Type: Progress Notes Filed: 07/26/2024 19:16 Note Text: COLORECTAL SURGERY July 17, 2024 Rola Aguilar 28 year old Chief Complaint: crohn's disease with perianal fistula History of Present Illness: Rola Aguilar is a 28 year old female who presents to the office for evaluation of crohn's disease with perianal fistula. She was last seen in the office on 10/18/23. 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 She has been on humira, stellara and is currently on Entyvio. She is under the care of Dr Lee Ann Humphries. Ileoscopy on 01/20/24: - Crohn's disease with ileitis. Inflammation was found. This was mild in severity. Biopsied Colonoscopy on 01/20/24: - Perianal fistula and anal canal stenosis found on perianal exam. - Stricture in the sigmoid colon. - Crohn's disease. Inflammation was found from the anus to the sigmoid colon. This was moderate in severity, unchanged compared to previous examinations. Biopsied Pathology: A. Small bowel, ileum, biopsy: - Chronic minimally inflamed enteritis; negative for pyloric gland metaplasia or dysplasia. B. Colon, rectosigmoid, biopsy: - Chronic mildly inflamed colitis; negative for dysplasia CT Abdomen/pelvis on 01/18/24 IMPRESSION: Diffuse colonic wall thickening and pericolonic stranding changes consistent with colitis. Partially imaged seton in the perianal region Prior A/P from 10/18/23: Rola Aguilar is a 28 year old female with a diverting ostomy (Crohn's) and in her third trimester. Today we discussed her ostomy output and how to stay hydrated for the rest of her . She will see me or Dr Tai 3 months post-operatively to discuss reversal and also establish care with Dr Villa for GI. PAST MEDICAL HISTORY Diagnosis Date Crohn's disease (HCC) History of transfusion 2017 anemia noted prior to surgery Migraine with aura Perianal abscess Seasonal allergies PAST SURGICAL HISTORY Procedure Laterality Date COLONOSCOPY GEN ANES 10/20/2020 EXCISION PILONIDAL CYST/SINUS SIMPLE 06/2016 PAST SURGICAL HISTORY OF 09/10/2018 Laparoscopic creation of diverting loop ileostomy, laparoscopic TAP block, examination under anesthesia with flexible sigmoidoscopy with biopsies, incision and drainage of complex perianal and supralevator abscesses with drain and seton placement. PAST SURGICAL HISTORY OF 08/26/2018 Exam under anesthesia, flexible sigmoidoscopy, incision and drainage of deep postanal space abscess, seton and drain placement. PAST SURGICAL HISTORY OF iliostomy Current Outpatient Medications Medication Sig Dispense Refill vedolizumab (ENTYVIO PEN) 108 mg/0.68 mL pen Inject 108mg (1 pen) subcutaneously every other week. 1.36 mL 0 vedolizumab (ENTYVIO PEN) 108 mg/0.68 mL pen Inject 108 mg (1 pen) subcutaneously every other week. 2 Each 11 No current facility-administered medications for this visit. ALLERGIES Allergen Reactions Hydromorphone Itching FAMILY HISTORY Problem Relation Age of Onset Hodgkin Lymphoma Mother NON hodgkin Colon Cancer Other Social History Tobacco Use Smoking status: Former Current packs/day: 0.50 Types: Cigarettes Smokeless tobacco: Never Tobacco comments: 3 per day Vaping Use Vaping status: Never Used Substance Use Topics Alcohol use: Not Currently Comment: 1 per week Drug use: No Physical Exam: LMP 01/30/2023 (Exact Date) General Appearance: Well appearing, alert, in no acute distress, well-hydrated, well nourished. Skin: Skin color, texture, turgor normal Head: Normocephalic Oropharynx: Lips, mucosa, and tongue normal Neck: Supple Lungs: breathing unlabored on room air Extremities: No deformities, no weakness Neuro: Gait normal Abdomen: Normal abdominal exam Anorectal: External exam reveals: see below Journeyman Machinist present: yes The sensitive examination was discussed with the Patient or Patient's Authorized Oncology Account Specialist. As applicable, any other physician, advance practice provider, medical student, or other health professional student that will be observing or involved in the sensitive examination for educational or training purposes was discussed with the Patient or Authorized Oncology Account Specialist. The Patient or Authorized Oncology Account Specialist has agreed to proceed with the sensitive examination. (Sensitive examination includes inspection and/or palpation of the breasts, pelvis, prostate and anorectal regions) Assessment Assessment and Plan: Rola Aguilar is a 28 year old female with a palpable right posterior lateral abscess on PE. It is draining but will likely need OR intervention as the secondary opening is not wide or mature enough. Due to her pain and swelling we are going to try and obtain OR time Saturday to perform an EU (more content not included)... [facility] 07-14-2024 Hospital Discharg e instructions Patient Education 07/13/2024 23:57:10 Crohn's Disease Crohn's Disease Crohn's disease is a long-lasting (chronic) disease that affects the gastrointestinal (GI) tract. Crohn's disease often causes irritation and inflammation in the small intestine and the beginning of the large intestine, but it can affect any part of the GI tract. Crohn's disease is part of a group of illnesses that are known as inflammatory bowel disease (IBD). Crohn's disease may start slowly and get worse over time. Symptoms may come and go. They may also go away for months or even years at a time (remission). What are the causes? The exact cause of this condition is not known. It may involve a response that causes your body's disease-fighting system (immune system) to attack healthy cells and tissues (autoimmune response). Bacteria, genes, and your environment may also play a role. What increases the risk? The following factors may make you more likely to develop this condition: Having a family member who has Crohn's disease, another IBD, or an autoimmune condition. Using products that contain nicotine or tobacco, such as cigarettes and e-cigarettes. Being in your 20s. Having Eastern ancestry. What are the signs or symptoms? The main symptoms of this condition involve your GI tract. These include: Diarrhea. Pain or cramping in the abdomen commonly felt in the lower right side of the abdomen. Frequent watery or bloody stools. Constipation. This may mean having: ?Fewer bowel movements in a week than normal. ?Difficulty having a bowel movement. ?Stools that are dry, hard, or larger than normal. Rectal bleeding or pain. An urgent need to have a bowel movement. The feeling that you are not finished having a bowel movement. Other symptoms may include: Unexplained weight loss. Tiredness (fatigue). Fever. Nausea or appetite loss. Joint pain. Vision changes. Red bumps or sores on the skin. Sores inside the mouth. How is this diagnosed? This condition may be diagnosed based on: Your symptoms and medical history. A physical exam. Tests, which may include: ?Blood tests. ?Stool sample tests. ?Imaging tests, such as X-rays and CT scans. ?Tests to examine the inside of your intestines using a long, flexible tube that has a light and a camera on the end (colonoscopy). ?A procedure to remove tissue samples from inside your bowel for testing (biopsy). You may need to work with a health care provider who specializes in diseases of the digestive tract (clinical radiologist). How is this treated? There is no cure for this condition, and it affects each person differently. Treatment can help you manage your symptoms. Your treatment may include: Medicines. These may be used by themselves or with other treatments (combination therapy). You may be given medicines that help to: ?Reduce inflammation. ?Control your immune system activity. ?Fight infections. ?Relieve cramps and prevent diarrhea. ?Control your pain. Surgery. You may need surgery if: ?Medicines and other treatments are not working anymore. ?You develop complications from severe Crohn's disease. ?A section of your intestine becomes so damaged that it needs to be removed. Lifestyle changes: ?Maintaining eating or drinking restrictions. ?Reducing or eliminating use of alcohol or nicotine. Follow these instructions at home: Medicines Take [id number] and prescription medicines only as told by your health care provider. If you were prescribed an antibiotic, take it as told by your health care provider. Do not stop taking the antibiotic even if you start to feel better. Avoid taking ibuprofen or other NSAID medicines if possible. These can make Crohn's disease worse. Eating and drinking Talk with your health care provider or a registered dietitian about what diet is best for you. Drink enough fluid to keep your urine pale yellow. If you are taking steroids to reduce inflammation, get plenty of calcium in your diet to help keep your bones healthy. You may also consider taking a calcium supplement with vitamin D. Keep a food diary to identify foods that make your symptoms better or worse, and avoid foods that cause symptoms. Follow instructions from your health care provider about eating or drinking restrictions if you have worsening symptoms (flare-up). If you drink alcohol: ?Limit how much you have to: ?0 1 drink a day for women who are not . ?0 2 drinks a day for men. ?Know how much alcohol is in a drink. In the [place] one drink equals one 12 oz bottle of beer (355 mL), one 5 oz glass of wine (148 mL), or one 1 oz glass of hard liquor (44 mL). General instructions Make sure you get all the vaccines that your health care provider recommends, especially pneumonia (pneumococcal) and flu (influenza) vaccines. Do not use any products that contain nicotine or tobacco. These products include cigarettes, chewing tobacco, and vaping devices, such as e-cigarettes. If you need help quitting, ask your health care provider. Exercise every day, or as often as told by your health care provider. Keep all follow-up visits. This is important. Contact a health care provider if: You have diarrhea, cramps in your abdomen, and other GI problems that are present almost all the time. Your symptoms do not improve with treatment, your symptoms get worse, or you develop new symptoms. You cannot pass stools. You continue to lose weight. You develop a rash or sores on your skin. You develop eye problems. You have a fever. Get help right away if: You have bloody diarrhea. You have severe pain in your abdomen. These symptoms may be an emergency. Get help right away. Call 911. Do not wait to see if the symptoms will go away. Do not drive yourself to the hospital. Summary Crohn's disease affects each person differently. The cause of this condition is not known, but it may involve a response that causes your body's immune system to attack healthy cells and tissues. There are multiple treatment options that can help you manage the condition. Talk with your health care provider or a registered dietitian about what diet is best for you. Make sure you get all the vaccines that your health care provider recommends, especially pneumonia (pneumococcal) and flu (influenza) vaccines. Get help right away if you have bloody diarrhea or severe pain in your abdomen. This information is not intended to replace advice given to you by your health care provider. Make sure you discuss any questions you have with your health care provider. Document Revised: 03/15/2022 Document Reviewed: 03/15/2022 [employer] Patient Education 2023 [employer]. 07/13/2024 23:57:10 Abdominal Pain, Adult, Gwzl-dd-Fapp Abdominal Pain, Adult Many things can cause belly (abdominal) pain. In most cases, belly pain is not a serious problem and can be watched and treated at home. But in some cases, it can be serious. Your doctor will try to find the cause of your belly pain. Follow these instructions at home: Medicines Take pijr-qbe-wowmfjx and prescription medicines only as told by your doctor. Do not take medicines that help you poop (laxatives) unless told by your doctor. General instructions Watch your belly pain for any changes. Tell your doctor if the pain gets worse. Drink enough fluid to keep your pee (urine) pale yellow. Contact a doctor if: Your belly pain changes or gets worse. You have very bad cramping or bloating in your belly. You vomit. Your pain gets worse with meals, after eating, or with certain foods. You have trouble pooping or have watery poop for more than 2 3 days. You are not hungry, or you lose weight without trying. You have signs of not getting enough fluid or water (dehydration). These may include: ?Dark pee, very little pee, or no pee. ?Cracked lips or dry mouth. ?Feeling sleepy or weak. You have pain when you pee or poop. Your belly pain wakes you up at night. You have blood in your pee. You have a fever. Get help right away if: You cannot stop vomiting. Your pain is only in one part of your belly, like on the right side. You have bloody or black poop, or poop that looks like tar. You have trouble breathing. You have chest pain. These symptoms may be an emergency. Get help right away. Call 911. Do not wait to see if the symptoms will go away. Do not drive yourself to the hospital. This information is not intended to replace advice given to you by your health care provider. Make sure you discuss any questions you have with your health care provider. Document Revised: 06/26/2023 Document Reviewed: 06/26/2023 [employer] Patient Education 2023 [employer]. Follow Up Care 07/13/2024 18:23:45 With:Ja Bhardwaj Address: [facility] [address], [address] [phone] Business (1) When:07/16/2024 Comments:Call Dr for diagnosis based follow up [facility] 07-13-2024 Note ED Patient Education Note Gastroenterology Abdominal Pain, Adult Many things can cause belly (abdominal) pain. In most cases, belly pain is not a serious problem and can be watched and treated at home. But in some cases, it can be serious. Your doctor will try to find the cause of your belly pain. Follow these instructions at home: Medicines ? Take ifql-byb-lcmwhwe and prescription medicines only as told by your doctor. ? Do not take medicines that help you poop (laxatives) unless told by your doctor. General instructions ? Watch your belly pain for any changes. Tell your doctor if the pain gets worse. ? Drink enough fluid to keep your pee (urine) pale yellow. Contact a doctor if: ? Your belly pain changes or gets worse. ? You have very bad cramping or bloating in your belly. ? You vomit. ? Your pain gets worse with meals, after eating, or with certain foods. ? You have trouble pooping or have watery poop for more than 2?3 days. ? You are not hungry, or you lose weight without trying. ? You have signs of not getting enough fluid or water (dehydration). These may include: ? Dark pee, very little pee, or no pee. ? Cracked lips or dry mouth. ? Feeling sleepy or weak. ? You have pain when you pee or poop. ? Your belly pain wakes you up at night. ? You have blood in your pee. ? You have a fever. Get help right away if: ? You cannot stop vomiting. ? Your pain is only in one part of your belly, like on the right side. ? You have bloody or black poop, or poop that looks like tar. ? You have trouble breathing. ? You have chest pain. These symptoms may be an emergency. Get help right away. Call 911. ? Do not wait to see if the symptoms will go away. ? Do not drive yourself to the hospital. This information is not intended to replace advice given to you by your health care provider. Make sure you discuss any questions you have with your health care provider. Document Revised: 06/26/2023 Document Reviewed: 06/26/2023 [employer] Patient Education ? 2023 [employer]. Immunology Crohn's Disease Crohn's disease is a long-lasting (chronic) disease that affects the gastrointestinal (GI) tract. Crohn's disease often causes irritation and inflammation in the small intestine and the beginning of the large intestine, but it can affect any part of the GI tract. Crohn's disease is part of a group of illnesses that are known as inflammatory bowel disease (IBD). Crohn's disease may start slowly and get worse over time. Symptoms may come and go. They may also go away for months or even years at a time (remission). What are the causes? The exact cause of this condition is not known. It may involve a response that causes your body's disease-fighting system (immune system) to attack healthy cells and tissues (autoimmune response). Bacteria, genes, and your environment may also play a role. What increases the risk? The following factors may make you more likely to develop this condition: ? Having a family member who has Crohn's disease, another IBD, or an autoimmune condition. ? Using products that contain nicotine or tobacco, such as cigarettes and e-cigarettes. ? Being in your 20s. ? Having [place] ancestry. What are the signs or symptoms? The main symptoms of this condition involve your GI tract. These include: ? Diarrhea. ? Pain or cramping in the abdomen commonly felt in the lower right side of the abdomen. ? Frequent watery or bloody stools. ? Constipation. This may mean having: ? Fewer bowel movements in a week than normal. ? Difficulty having a bowel movement. ? Stools that are dry, hard, or larger than normal. ? Rectal bleeding or pain. ? An urgent need to have a bowel movement. ? The feeling that you are not finished having a bowel movement. Other symptoms may include: ? Unexplained weight loss. ? Tiredness (fatigue). ? Fever. ? Nausea or appetite loss. ? Joint pain. ? Vision changes. ? Red bumps or sores on the skin. ? Sores inside the mouth. How is this diagnosed? This condition may be diagnosed based on: ? Your symptoms and medical history. ? A physical exam. ? Tests, which may include: ? Blood tests. ? Stool sample tests. ? Imaging tests, such as X-rays and CT scans. ? Tests to examine the inside of your intestines using a long, flexible tube that has a light and a camera on the end (colonoscopy). ? A procedure to remove tissue samples from inside your bowel for testing (biopsy). You may need to work with a health care provider who specializes in diseases of the digestive tract (clinical radiologist). How is this treated? There is no cure for this condition, and it affects each person differently. Treatment can help you manage your symptoms. Your treatment may include: ? Medicines. These may be used by themselves or with other treatments (combination therapy). You may be given m (more content not included)... [facility] 07-13-2024 Note HNO ID: [id number] Author: ?, ?, ? Service: ? Author Type: ? Type: Progress Notes Filed: 07/29/2024 10:20 Note Text: Unable to reach patient for refill of Entyvio after 4 call attempts. Pt last refilled medication on 06/18/2024. Will schedule future follow-up in 2 weeks from today's date. Office will be updated if future attempts are unsuccessful. Aniya Alvarez CPhT [facility], [facility] P: [phone] F: [phone] [facility] 07-13-2024 Note HNO ID: [id number] Author: ?, ?, ? Service: ? Author Type: ? Type: Progress Notes Filed: 08/12/2024 10:27 Note Text: [facility] Discontinuation Assessment: Disease group: Inflammatory Medication: ENTYVIO PEN 108 MG/0.68 ML SUBCUTANEOUS PEN INJECTOR Discontinue reason: Unable to reach patient Aniya Alvarez CPhT [facility] P: [phone] F: [phone] [facility] 07-01-2024 History of Presen t illness Narrative Prior authorization renewal for Enytvio was initiated and is pending review. Plan Name: [facility] Plan Agent: RHIANNON REECE Nelson: [id number] Timeline: Marked urgent Aniya Alvarez CPhT [facility] P: [phone] F: [phone] [facility] has been servicing patient for cycles/refills of Entyvio. Plan Name: [employer] Phone/Fax: - / - [place] reference number: [id number] Approval Dates: 07/01/2024-07/10/2025 [facility] will continue to service order accordingly. Aniya Alvarez CPhT [facility] P: [phone] F: [phone] documented in this encounter [facility] 07-01-2024 Note HNO ID: [id number] Author: ?, ?, ? Service: ? Author Type: ? Type: Progress Notes Filed: 07/01/2024 16:11 Note Text: [facility] serv[facility] patient for cycles/refills of Entyvio. Plan Name: [employer] Phone/Fax: - / - [place] reference number: [id number] Approval Dates: 07/01/2024-07/10/2025 [facility] will continue to service order accordingly. Aniya Alvarez CPhT [facility] P: [phone] F: [phone] [facility] 07-01-2024 Note HNO ID: [id number] Author: ?, ?, ? Service: ? Author Type: ? Type: Progress Notes Filed: 07/01/2024 13:17 Note Text: Prior authorization renewal for Enytvio was initiated and is pending review. Plan Name: [employer] Plan Agent: RHIANNON REECE Nelson: [id number] Timeline: Marked urgent Aniya Alvarez CPhT [facility] P: [phone] F: [phone] [facility] 06-30-2024 Hospital Discharg e instructions Patient Education 06/30/2024 15:22:17 Anorectal Abscess Anorectal Abscess An abscess is an infected area that contains pus. An anorectal abscess is an abscess that forms near the opening of the butt (anus) or around the rectum. If it is not treated, the abscess can grow and cause other problems. These problems may include a more severe body-wide infection or pain, especially when you poop. What are the causes? An anorectal abscess is caused by clogged glands or an infection in: The anus. The area between the anus and the scrotum in males or between the anus and the vagina in females (perineum). What increases the risk? You may be more likely to get this condition if: You are . You have diabetes or an inflammatory bowel disease, such as Crohn's disease. You have had anal sex. You have certain cancers. These include rectal cancer, leukemia, or lymphoma. You have been given medicines to kill cancer cells (chemotherapy). You have cracks in your anus (anal fissures). These cracks may form if you have constipation that lasts for a long time or does not go away. You have a sexually transmitted infection (STI). What are the signs or symptoms? The main symptom of this condition is pain. It may be a throbbing pain that gets worse when you poop. Other symptoms include: Swelling, redness, and pus near the anus. The redness may go beyond the abscess and look like a red streak on the skin. A painful lump or tissue near the anus. Bleeding or pus-like discharge from the area. Fever or night sweats. Weakness and tiredness (fatigue). Constipation or pain when pooping. Pain in the lower part of your stomach. How is this diagnosed? This condition is diagnosed based on your medical history and a physical exam. The exam may include: A digital rectal exam. This is when your health care provider puts a gloved finger into your anus and rectum to look for problems. A vaginal exam. This is when your provider looks at the vagina for problems. Using a tube with a light and camera on the end (scope) to look at the rectum. You may also need tests, such as an MRI or CT scan. How is this treated? Treatment for this condition may include: Incision and drainage of the abscess. This is when an incision is made over the abscess to drain the pus. Medicines. These may include pain medicines, medicine to help you poop (laxatives), stool softeners, or antibiotics. Follow these instructions at home: Medicines Take lhbf-gsr-vfuhpnk and prescription medicines only as told by your provider. If you were prescribed antibiotics, use them as told by your provider. Do not stop using the antibiotic even if you start to feel better. Ask your provider if the medicine prescribed to you requires you to avoid driving or using machinery. Wound care Follow instructions from your provider about how to take care of your wound. Make sure you: ?Wash your hands with soap and water for at least 20 seconds before and after you change your bandage (dressing). If soap and water are not available, use hand judicial administrative assistant. ?Change your dressing as told by your provider. ?Leave stitches (sutures), skin glue, or tape strips in place. These skin closures may need to stay in place for 2 weeks or longer. If tape strip edges start to loosen and curl up, you may trim the loose edges. Do not remove tape strips completely unless your provider tells you to do that. If one or more tubes (drains) were placed to drain the pus, be careful not to pull at them. Your provider will tell you how long they need to stay in place. Check your abscess area every day for signs of infection. Check for: ?More redness, swelling, or pain. ?More fluid or blood. ?Warmth. ?Pus or a bad smell. Managing pain, stiffness, and swelling To help with pain, try sitting: ?On a heating pad with the setting on low. ?On an inflatable donut-shaped cushion. If told, put ice on the affected area. ?Put ice in a plastic bag. ?Place a towel between your skin and the bag. ?Leave the ice on for 20 minutes, 2 3 times a day. If your skin turns bright red, remove the ice right away to prevent skin damage. The risk of damage is higher if you cannot feel pain, heat, or cold. General instructions Take a sitz bath 3 4 times a day and after you poop. A sitz bath is a shallow, warm water bath that you sit down in. The water should only come up to your hips and should cover your butt. Follow instructions from your provider about what you may eat and drink. Keep all follow-up visits. Your provider may need to remove stitches and make sure that the abscess has gone away. Where to find more information [place] [employer]: fascrs.org Contact a health care provider if: You have any signs of an infection. You have a fever or chills. You have trouble pooping. Get help right away if: You have trouble moving or using your legs. You have severe pain or pain that gets worse. You have swelling that gets worse. You have a lot more bleeding or passing of pus. This information is not intended to replace advice given to you by your health care provider. Make sure you discuss any questions you have with your health care provider. Document Revised: 05/01/2023 Document Reviewed: 05/01/2023 [employer] Patient Education 2023 [employer]. Follow Up Care 06/30/2024 11:06:32 With:XXXX NONE Address: [place] When:07/03/2024 14:38:40 Comments:Follow-up with your colorectal surgeon [facility] 06-30-2024 Note ED Patient Education Note Gastroenterology Anorectal Abscess An abscess is an infected area that contains pus. An anorectal abscess is an abscess that forms near the opening of the butt (anus) or around the rectum. If it is not treated, the abscess can grow and cause other problems. These problems may include a more severe body-wide infection or pain, especially when you poop. What are the causes? An anorectal abscess is caused by clogged glands or an infection in: ? The anus. ? The area between the anus and the scrotum in males or between the anus and the vagina in females (perineum). What increases the risk? You may be more likely to get this condition if: ? You are . ? You have diabetes or an inflammatory bowel disease, such as Crohn's disease. ? You have had anal sex. ? You have certain cancers. These include rectal cancer, leukemia, or lymphoma. ? You have been given medicines to kill cancer cells (chemotherapy). ? You have cracks in your anus (anal fissures). These cracks may form if you have constipation that lasts for a long time or does not go away. ? You have a sexually transmitted infection (STI). What are the signs or symptoms? The main symptom of this condition is pain. It may be a throbbing pain that gets worse when you poop. Other symptoms include: ? Swelling, redness, and pus near the anus. The redness may go beyond the abscess and look like a red streak on the skin. ? A painful lump or tissue near the anus. ? Bleeding or pus-like discharge from the area. ? Fever or night sweats. ? Weakness and tiredness (fatigue). ? Constipation or pain when pooping. ? Pain in the lower part of your stomach. How is this diagnosed? This condition is diagnosed based on your medical history and a physical exam. The exam may include: ? A digital rectal exam. This is when your health care provider puts a gloved finger into your anus and rectum to look for problems. ? A vaginal exam. This is when your provider looks at the vagina for problems. ? Using a tube with a light and camera on the end (scope) to look at the rectum. You may also need tests, such as an MRI or CT scan. How is this treated? Treatment for this condition may include: ? Incision and drainage of the abscess. This is when an incision is made over the abscess to drain the pus. ? Medicines. These may include pain medicines, medicine to help you poop (laxatives), stool softeners, or antibiotics. Follow these instructions at home: Medicines ? Take ytae-khi-mlahtxn and prescription medicines only as told by your provider. ? If you were prescribed antibiotics, use them as told by your provider. Do not stop using the antibiotic even if you start to feel better. ? Ask your provider if the medicine prescribed to you requires you to avoid driving or using machinery. Wound care ? Follow instructions from your provider about how to take care of your wound. Make sure you: ? Wash your hands with soap and water for at least 20 seconds before and after you change your bandage (dressing). If soap and water are not available, use hand judicial administrative assistant. ? Change your dressing as told by your provider. ? Leave stitches (sutures), skin glue, or tape strips in place. These skin closures may need to stay in place for 2 weeks or longer. If tape strip edges start to loosen and curl up, you may trim the loose edges. Do not remove tape strips completely unless your provider tells you to do that. ? If one or more tubes (drains) were placed to drain the pus, be careful not to pull at them. Your provider will tell you how long they need to stay in place. ? Check your abscess area every day for signs of infection. Check for: ? More redness, swelling, or pain. ? More fluid or blood. ? Warmth. ? Pus or a bad smell. Managing pain, stiffness, and swelling ? To help with pain, try sitting: ? On a heating pad with the setting on low. ? On an inflatable donut-shaped cushion. ? If told, put ice on the affected area. ? Put ice in a plastic bag. ? Place a towel between your skin and the bag. ? Leave the ice on for 20 minutes, 2?3 times a day. ? If your skin turns bright red, remove the ice right away to prevent skin damage. The risk of damage is higher if you cannot feel pain, heat, or cold. General instructions ? Take a sitz bath 3?4 times a day and after you poop. A sitz bath is a shallow, warm water bath that you sit down in. The water should only come up to your hips and should cover your butt. ? Follow instructions from your provider about what you may eat and drink. ? Keep all follow-up visits. Your provider may need to remove stitches and make sure that the abscess has gone away. Where to find more information ? [place] [employer]: fascrs.org Contact a health care provider if: ? You have any signs of an infection. ? You have a fever or chills. (more content not included)... [facility] 06-12-2024 History of Presen t illness Narrative [facility] Ref[facility] Assessment Medication(s): Entyvio Patient's current medication list and adherence status to current therapy were reviewed by Specialty Pharmacy clinical pharmacist to identify any new drug interactions or non-compliance to therapy. Therapy continues to be appropriate for disease, patient response, and medical condition. Verification of therapeutic benefit and effectiveness with current therapy was completed. Adverse events, barriers in adherence, and side effects were assessed and addressed if applicable. Will proceed with refill with no changes in therapy - patient progressing towards achieving therapeutic goals based on medication-specific laboratory parameters, disease state markers and outcomes. Office/provider notes have been reviewed prior to dispensing the medication. 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 Med/dose confirmed: Yes Supplies needed: No supplies needed Missed doses: No Estimated days supply on hand: 0 Next cycle/dose due: 06/24/24 Copay amount: 0 Payment confirmed: Yes Delivery method: FedEx Signature required: Waived on patient request Delivery address: [address] [place] [address] Delivery date: 06/19/24 Questions or concerns for the pharmacist?: No Did you have any side effects believed to be related to this medication, that resulted in hospitalization?: No Current Outpatient Medications on File Prior to Visit Medication Sig vedolizumab (ENTYVIO PEN) 108 mg/0.68 mL pen Inject 108mg (1 pen) subcutaneously every other week. vedolizumab (ENTYVIO PEN) 108 mg/0.68 mL pen Inject 108 mg (1 pen) subcutaneously every other week. No current facility-administered medications on file prior to visit. [facility] SPECIAL[facility] CLINICAL ASSESSMENT - INFLAMMATORY CONDITIONS V6: Assessment to use: Refill Date of influenza vaccination reminder: 04/21/2024 Date of most recent vaccination assessment: 04/21/2024 Treatment Plan Information: Entyvio 108mg/0.68mL pen Inject 108 mg (1 pen) subcutaneously every other week. 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 Tx Plan Start Date: 04/29/2024 Estimated Start Date Info: No information available Est. Estimated Treatment Duration: Until loss of efficacy and/or no longer tolerated. Aniya Alvarez CPhT [facility] P: [phone] F: [phone] documented in this encounter [facility] 06-12-2024 Note HNO ID: [id number] Author: ?, ?, ? Service: ? Author Type: ? Type: Progress Notes Filed: 06/12/2024 12:37 Note Text: [facility] Refill Assessment Medication(s): Entyvio Patient's current medication list and adherence status to current therapy were reviewed by Specialty Pharmacy clinical pharmacist to identify any new drug interactions or non-compliance to therapy. Therapy continues to be appropriate for disease, patient response, and medical condition. Verification of therapeutic benefit and effectiveness with current therapy was completed. Adverse events, barriers in adherence, and side effects were assessed and addressed if applicable. Will proceed with refill with no changes in therapy - patient progressing towards achieving therapeutic goals based on medication-specific laboratory parameters, disease state markers and outcomes. Office/provider notes have been reviewed prior to dispensing the medication. 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 Med/dose confirmed: Yes Supplies needed: No supplies needed Missed doses: No Estimated days supply on hand: 0 Next cycle/dose due: 06/24/24 Copay amount: 0 Payment confirmed: Yes Delivery method: FedEx Signature required: Waived on patient request Delivery address: [address] [place] [address] Delivery date: 06/19/24 Questions or concerns for the pharmacist?: No Did you have any side effects believed to be related to this medication, that resulted in hospitalization?: No Current Outpatient Medications on File Prior to Visit Medication Sig vedolizumab (ENTYVIO PEN) 108 mg/0.68 mL pen Inject 108mg (1 pen) subcutaneously every other week. vedolizumab (ENTYVIO PEN) 108 mg/0.68 mL pen Inject 108 mg (1 pen) subcutaneously every other week. No current facility-administered medications on file prior to visit. [facility] RX SPECIALTY CLINICAL ASSESSMENT - INFLAMMATORY CONDITIONS V6: Assessment to use: Refill Date of influenza vaccination reminder: 04/21/2024 Date of most recent vaccination assessment: 04/21/2024 Treatment Plan Information: Entyvio 108mg/0.68mL pen Inject 108 mg (1 pen) subcutaneously every other week. 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 Tx Plan Start Date: 04/29/2024 Estimated Start Date Info: No information available Est. Estimated Treatment Duration: Until loss of efficacy and/or no longer tolerated. Aniya Alvarez CPhT [facility] P: [phone] F: [phone] [facility] 06-12-2024 History of Presen t illness Narrative [facility] has been servicing patient for cycles/refills of Entyvio. Plan Name: [facility] Phone/Fax: - / - CMM Nelson: [id number] CHEVY reference number: [id number] Approval Dates: 06/12/2024-07/10/2024 Further approvals require updated office visit. [facility] will continue to service order accordingly. Aniya Alvarez CPhT [facility] P: [phone] F: [phone] documented in this encounter [facility] 06-12-2024 Note HNO ID: [id number] Author: ?, ?, ? Service: ? Author Type: ? Type: Progress Notes Filed: 06/12/2024 12:33 Note Text: [facility] serv[facility] patient for cycles/refills of Entyvio. Plan Name: [facility] Phone/Fax: - / - CMM Nelson: [id number] REECE reference number: [id number] Approval Dates: 06/12/2024-07/10/2024 Further approvals require updated office visit. [facility] will continue to service order accordingly. Aniya Alvarez CPhT [facility] P: [phone] F: [phone] [facility] 05-15-2024 History of Presen t illness Narrative [facility] Assessment Medication(s): Entyvio Patient's current medication list and adherence status to current therapy were reviewed by Specialty Pharmacy clinical pharmacist to identify any new drug interactions or non-compliance to therapy. Therapy continues to be appropriate for disease, patient response, and medical condition. Verification of therapeutic benefit and effectiveness with current therapy was completed. Adverse events, barriers in adherence, and side effects were assessed and addressed if applicable. Will proceed with refill with no changes in therapy - patient progressing towards achieving therapeutic goals based on medication-specific laboratory parameters, disease state markers and outcomes. 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 Med/dose confirmed: Yes Supplies needed: No supplies needed Missed doses: No Estimated days supply on hand: 0 Next cycle/dose due: 05/27/24 Copay amount: 0 Payment confirmed: Yes Delivery method: FedEx Signature required: Waived on patient request Delivery address: [address] [place] [address] Delivery date: 05/21/24 Questions or concerns for the pharmacist?: No Did you have any side effects believed to be related to this medication, that resulted in hospitalization?: No Current Outpatient Medications on File Prior to Visit Medication Sig vedolizumab (ENTYVIO PEN) 108 mg/0.68 mL pen Inject 108mg (1 pen) subcutaneously every other week. predniSONE (DELTASONE) 20 mg tablet Take 1 tablet by mouth once daily. vedolizumab (ENTYVIO PEN) 108 mg/0.68 mL pen Inject 108 mg (1 pen) subcutaneously every other week. No current facility-administered medications on file prior to visit. [facility] RX SPECIALTY CLINICAL ASSESSMENT - INFLAMMATORY CONDITIONS V6: Assessment to use: Refill Date of influenza vaccination reminder: 04/21/2024 Date of most recent vaccination assessment: 04/21/2024 Treatment Plan Information: Entyvio 108mg/0.68mL pen Inject 108 mg (1 pen) subcutaneously every other week. 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 Tx Plan Start Date: 04/29/2024 Estimated Start Date Info: No information available Est. Estimated Treatment Duration: Until loss of efficacy and/or no longer tolerated. Aniya Alvarez CPhT [facility] P: [phone] F: [phone] documented in this encounter [facility] 05-15-2024 Note HNO ID: [id number] Author: TAYLER HANKS, [facility] Service: ? Author Type: ? Type: Progress Notes Filed: 05/18/2024 15:55 Note Text: [facility] Assessment Medication(s): Entyvio Patient's current medication list and adherence status to current therapy were reviewed by Specialty Pharmacy clinical pharmacist to identify any new drug interactions or non-compliance to therapy. Therapy continues to be appropriate for disease, patient response, and medical condition. Verification of therapeutic benefit and effectiveness with current therapy was completed. Adverse events, barriers in adherence, and side effects were assessed and addressed if applicable. Will proceed with refill with no changes in therapy - patient progressing towards achieving therapeutic goals based on medication-specific laboratory parameters, disease state markers and outcomes. 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 Med/dose confirmed: Yes Supplies needed: No supplies needed Missed doses: No Estimated days supply on hand: 0 Next cycle/dose due: 05/27/24 Copay amount: 0 Payment confirmed: Yes Delivery method: FedEx Signature required: Waived on patient request Delivery address: [address] [place] [address] Delivery date: 05/21/24 Questions or concerns for the pharmacist?: No Did you have any side effects believed to be related to this medication, that resulted in hospitalization?: No Current Outpatient Medications on File Prior to Visit Medication Sig vedolizumab (ENTYVIO PEN) 108 mg/0.68 mL pen Inject 108mg (1 pen) subcutaneously every other week. predniSONE (DELTASONE) 20 mg tablet Take 1 tablet by mouth once daily. vedolizumab (ENTYVIO PEN) 108 mg/0.68 mL pen Inject 108 mg (1 pen) subcutaneously every other week. No current facility-administered medications on file prior to visit. [facility] RX SPECIALTY CLINICAL ASSESSMENT - INFLAMMATORY CONDITIONS V6: Ivent complete: No Assessment to use: Refill Assessment of injection issues: Yes Infection screening, including annual TB assessment when applicable to medication: Yes Current medication list (including drug interaction assessment): Yes Experience of adverse reactions to the medication: Yes Date of influenza vaccination reminder: 04/21/2024 Date of most recent vaccination assessment: 04/21/2024 Treatment Plan Information: Entyvio 108mg/0.68mL pen Inject 108 mg (1 pen) subcutaneously every other week. 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 Tx Plan Start Date: 04/29/2024 Estimated Start Date Info: No information available Est. Estimated Treatment Duration: Until loss of efficacy and/or no longer tolerated. Aniya Alvarez CPhT [facility] P: [phone] F: [phone] [facility] 05-13-2024 Telephone encounter Note Called and spoke to patient, appt with Dr White has been canceled. Patient states she tried to schedule a follow up with Dr Thakkar and was told he does not treat perianal abscess, advised pt I will look into this matter and call her back. [facility] Work Phone: 05-13-2024 Miscellaneous Notes Called and spoke to patient, appt with Dr White has been canceled. Patient states she tried to schedule a follow up with Dr Thakkar and was told he does not treat perianal abscess, advised pt I will look into this matter and call her back. Patient is currently a [facility] patient who saw Dr. Thakkar in September with the below note : evaluation of crohn's disease. She was last seen in the office on 08/02/23. She was previously seen in the hospital on 05/01/23. 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 Patient needs to follow up with [facility] due to the Crohns and severity of perianal disease documented in this encounter [facility] 05-13-2024 Telephone encounter Note Patient is currently a [facility] patient who saw Dr. Thakkar in September with the below note : evaluation of crohn's disease. She was last seen in the office on 08/02/23. She was previously seen in the hospital on 05/01/23. 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 Patient needs to follow up with [facility] due to the Crohns and severity of perianal disease [facility] Work Phone: 04-08-2024 Hospital Discharg e instructions Patient Education 04/08/2024 16:13:11 Crohn's Disease Crohn's Disease Crohn's disease is a long-lasting (chronic) disease that affects the gastrointestinal (GI) tract. Crohn's disease often causes irritation and inflammation in the small intestine and the beginning of the large intestine, but it can affect any part of the GI tract. Crohn's disease is part of a group of illnesses that are known as inflammatory bowel disease (IBD). Crohn's disease may start slowly and get worse over time. Symptoms may come and go. They may also go away for months or even years at a time (remission). What are the causes? The exact cause of this condition is not known. It may involve a response that causes your body's disease-fighting system (immune system) to attack healthy cells and tissues (autoimmune response). Bacteria, genes, and your environment may also play a role. What increases the risk? The following factors may make you more likely to develop this condition: Having a family member who has Crohn's disease, another IBD, or an autoimmune condition. Using products that contain nicotine or tobacco, such as cigarettes and e-cigarettes. Being in your 20s. Having Eastern ancestry. What are the signs or symptoms? The main symptoms of this condition involve your GI tract. These include: Diarrhea. Pain or cramping in the abdomen commonly felt in the lower right side of the abdomen. Frequent watery or bloody stools. Constipation. This may mean having: ?Fewer bowel movements in a week than normal. ?Difficulty having a bowel movement. ?Stools that are dry, hard, or larger than normal. Rectal bleeding or pain. An urgent need to have a bowel movement. The feeling that you are not finished having a bowel movement. Other symptoms may include: Unexplained weight loss. Tiredness (fatigue). Fever. Nausea or appetite loss. Joint pain. Vision changes. Red bumps or sores on the skin. Sores inside the mouth. How is this diagnosed? This condition may be diagnosed based on: Your symptoms and medical history. A physical exam. Tests, which may include: ?Blood tests. ?Stool sample tests. ?Imaging tests, such as X-rays and CT scans. ?Tests to examine the inside of your intestines using a long, flexible tube that has a light and a camera on the end (colonoscopy). ?A procedure to remove tissue samples from inside your bowel for testing (biopsy). You may need to work with a health care provider who specializes in diseases of the digestive tract (clinical radiologist). How is this treated? There is no cure for this condition, and it affects each person differently. Treatment can help you manage your symptoms. Your treatment may include: Medicines. These may be used by themselves or with other treatments (combination therapy). You may be given medicines that help to: ?Reduce inflammation. ?Control your immune system activity. ?Fight infections. ?Relieve cramps and prevent diarrhea. ?Control your pain. Surgery. You may need surgery if: ?Medicines and other treatments are not working anymore. ?You develop complications from severe Crohn's disease. ?A section of your intestine becomes so damaged that it needs to be removed. Lifestyle changes: ?Maintaining eating or drinking restrictions. ?Reducing or eliminating use of alcohol or nicotine. Follow these instructions at home: Medicines Take drtb-nmg-uacysrx and prescription medicines only as told by your health care provider. If you were prescribed an antibiotic, take it as told by your health care provider. Do not stop taking the antibiotic even if you start to feel better. Avoid taking ibuprofen or other NSAID medicines if possible. These can make Crohn's disease worse. Eating and drinking Talk with your health care provider or a registered dietitian about what diet is best for you. Drink enough fluid to keep your urine pale yellow. If you are taking steroids to reduce inflammation, get plenty of calcium in your diet to help keep your bones healthy. You may also consider taking a calcium supplement with vitamin D. Keep a food diary to identify foods that make your symptoms better or worse, and avoid foods that cause symptoms. Follow instructions from your health care provider about eating or drinking restrictions if you have worsening symptoms (flare-up). If you drink alcohol: ?Limit how much you have to: ?0 1 drink a day for women who are not . ?0 2 drinks a day for men. ?Know how much alcohol is in a drink. In the [place] one drink equals one 12 oz bottle of beer (355 mL), one 5 oz glass of wine (148 mL), or one 1 oz glass of hard liquor (44 mL). General instructions Make sure you get all the vaccines that your health care provider recommends, especially pneumonia (pneumococcal) and flu (influenza) vaccines. Do not use any products that contain nicotine or tobacco. These products include cigarettes, chewing tobacco, and vaping devices, such as e-cigarettes. If you need help quitting, ask your health care provider. Exercise every day, or as often as told by your health care provider. Keep all follow-up visits. This is important. Contact a health care provider if: You have diarrhea, cramps in your abdomen, and other GI problems that are present almost all the time. Your symptoms do not improve with treatment, your symptoms get worse, or you develop new symptoms. You cannot pass stools. You continue to lose weight. You develop a rash or sores on your skin. You develop eye problems. You have a fever. Get help right away if: You have bloody diarrhea. You have severe pain in your abdomen. These symptoms may be an emergency. Get help right away. Call 911. Do not wait to see if the symptoms will go away. Do not drive yourself to the hospital. Summary Crohn's disease affects each person differently. The cause of this condition is not known, but it may involve a response that causes your body's immune system to attack healthy cells and tissues. There are multiple treatment options that can help you manage the condition. Talk with your health care provider or a registered dietitian about what diet is best for you. Make sure you get all the vaccines that your health care provider recommends, especially pneumonia (pneumococcal) and flu (influenza) vaccines. Get help right away if you have bloody diarrhea or severe pain in your abdomen. This information is not intended to replace advice given to you by your health care provider. Make sure you discuss any questions you have with your health care provider. Document Revised: 03/15/2022 Document Reviewed: 03/15/2022 [employer] Patient Education 2022 [employer]. 04/08/2024 16:13:11 Abdominal Pain, Adult Abdominal Pain, Adult Pain in the abdomen (abdominal pain) can be caused by many things. Often, abdominal pain is not serious and it gets better with no treatment or by being treated at home. However, sometimes abdominal pain is serious. Your health care provider will ask questions about your medical history and do a physical exam to try to determine the cause of your abdominal pain. Follow these instructions at home: Medicines Take rarg-rmx-inyzzhi and prescription medicines only as told by your health care provider. Do not take a laxative unless told by your health care provider. General instructions Watch your condition for any changes. Drink enough fluid to keep your urine pale yellow. Keep all follow-up visits as told by your health care provider. This is important. Contact a health care provider if: Your abdominal pain changes or gets worse. You are not hungry or you lose weight without trying. You are constipated or have diarrhea for more than 2 3 days. You have pain when you urinate or have a bowel movement. Your abdominal pain wakes you up at night. Your pain gets worse with meals, after eating, or with certain foods. You are vomiting and cannot keep anything down. You have a fever. You have blood in your urine. Get help right away if: Your pain does not go away as soon as your health care provider told you to expect. You cannot stop vomiting. Your pain is only in areas of the abdomen, such as the right side or the left lower portion of the abdomen. Pain on the right side could be caused by appendicitis. You have bloody or black stools, or stools that look like tar. You have severe pain, cramping, or bloating in your abdomen. You have signs of dehydration, such as: ?Dark urine, very little urine, or no urine. ?Cracked lips. ?Dry mouth. ?Sunken eyes. ?Sleepiness. ?Weakness. You have trouble breathing or chest pain. Summary Often, abdominal pain is not serious and it gets better with no treatment or by being treated at home. However, sometimes abdominal pain is serious. Watch your condition for any changes. Take abmu-nqy-rlwvpmy and prescription medicines only as told by your health care provider. Contact a health care provider if your abdominal pain changes or gets worse. Get help right away if you have severe pain, cramping, or bloating in your abdomen. This information is not intended to replace advice given to you by your health care provider. Make sure you discuss any questions you have with your health care provider. Document Revised: 10/28/2020 Document Reviewed: 01/18/2020 [employer] Patient Education 2022 [employer] Follow Up Care 04/08/2024 11:35:23 With:Shilpa العلي Address: [address] [place] [address]- [facility] (1) When:04/11/2024 14:45:16 Comments:Call Dr for diagnosis based follow up [facility] 04-08-2024 Note ED Patient Education Note Gastroenterology Abdominal Pain, Adult Pain in the abdomen (abdominal pain) can be caused by many things. Often, abdominal pain is not serious and it gets better with no treatment or by being treated at home. However, sometimes abdominal pain is serious. Your health care provider will ask questions about your medical history and do a physical exam to try to determine the cause of your abdominal pain. Follow these instructions at home: Medicines ? Take vkaq-qmz-prlrcye and prescription medicines only as told by your health care provider. ? Do not take a laxative unless told by your health care provider. General instructions ? Watch your condition for any changes. ? Drink enough fluid to keep your urine pale yellow. ? Keep all follow-up visits as told by your health care provider. This is important. Contact a health care provider if: ? Your abdominal pain changes or gets worse. ? You are not hungry or you lose weight without trying. ? You are constipated or have diarrhea for more than 2?3 days. ? You have pain when you urinate or have a bowel movement. ? Your abdominal pain wakes you up at night. ? Your pain gets worse with meals, after eating, or with certain foods. ? You are vomiting and cannot keep anything down. ? You have a fever. ? You have blood in your urine. Get help right away if: ? Your pain does not go away as soon as your health care provider told you to expect. ? You cannot stop vomiting. ? Your pain is only in areas of the abdomen, such as the right side or the left lower portion of the abdomen. Pain on the right side could be caused by appendicitis. ? You have bloody or black stools, or stools that look like tar. ? You have severe pain, cramping, or bloating in your abdomen. ? You have signs of dehydration, such as: ? Dark urine, very little urine, or no urine. ? Cracked lips. ? Dry mouth. ? Sunken eyes. ? Sleepiness. ? Weakness. ? You have trouble breathing or chest pain. Summary ? Often, abdominal pain is not serious and it gets better with no treatment or by being treated at home. However, sometimes abdominal pain is serious. ? Watch your condition for any changes. ? Take mvex-sot-asnxtec and prescription medicines only as told by your health care provider. ? Contact a health care provider if your abdominal pain changes or gets worse. ? Get help right away if you have severe pain, cramping, or bloating in your abdomen. This information is not intended to replace advice given to you by your health care provider. Make sure you discuss any questions you have with your health care provider. Document Revised: 10/28/2020 Document Reviewed: 01/18/2020 [employer] Patient Education ? 2022 [employer]. Immunology Crohn's Disease Crohn's disease is a long-lasting (chronic) disease that affects the gastrointestinal (GI) tract. Crohn's disease often causes irritation and inflammation in the small intestine and the beginning of the large intestine, but it can affect any part of the GI tract. Crohn's disease is part of a group of illnesses that are known as inflammatory bowel disease (IBD). Crohn's disease may start slowly and get worse over time. Symptoms may come and go. They may also go away for months or even years at a time (remission). What are the causes? The exact cause of this condition is not known. It may involve a response that causes your body's disease-fighting system (immune system) to attack healthy cells and tissues (autoimmune response). Bacteria, genes, and your environment may also play a role. What increases the risk? The following factors may make you more likely to develop this condition: ? Having a family member who has Crohn's disease, another IBD, or an autoimmune condition. ? Using products that contain nicotine or tobacco, such as cigarettes and e-cigarettes. ? Being in your 20s. ? Having Eastern ancestry. What are the signs or symptoms? The main symptoms of this condition involve your GI tract. These include: ? Diarrhea. ? Pain or cramping in the abdomen commonly felt in the lower right side of the abdomen. ? Frequent watery or bloody stools. ? Constipation. This may mean having: ? Fewer bowel movements in a week than normal. ? Difficulty having a bowel movement. ? Stools that are dry, hard, or larger than normal. ? Rectal bleeding or pain. ? An urgent need to have a bowel movement. ? The feeling that you are not finished having a bowel movement. Other symptoms may include: ? Unexplained weight loss. ? Tiredness (fatigue). ? Fever. ? Nausea or appetite loss. ? Joint pain. ? Vision changes. ? Red bumps or sores on the skin. ? Sores inside the mouth. How is this diagnosed? This condition may be diagnosed based on: ? Your symptoms and medical history. ? A physical exam. ? Tests, which may include: ? Blood terry (more content not included)... [facility] 04-08-2024 Evaluation + Plan note Extrac tayler from: Title:ED Note Author:Ramesh LEDESMA, Wil Ramirez te:04/08/24 Abdominal pain (R10.9: Unspe cified abdominal pain) Crohn's disease (K50.90: Crohn's disease, unspecified, without complications) Orders: dicyclomine, 10 mg = 1 cap(s), Oral, QID, X 7 day(s), # 28 cap(s), Refills(s) 0, Pharmacy: [facility]/pharmacy #[id number], 167, cm, 04/08/24 11:39:00 EDT, Height/Length Dosing, 77, kg, 04/08/24 11:39:00 EDT, Weight Dosing methylPREDNISolone, 125 mg = 2 mL, Injection, IV Push, Once, Stop date 04/08/24 11:44:00 EDT, STAT, Start date 04/08/24 11:44:00 EDT, 04/08/24 11:44:00 EDT morphine, 4 mg = 1 mL, Injection, IV Push, Once, Stop date 04/08/24 11:44:00 EDT, STAT, Start date 04/08/24 11:44:00 EDT, 04/08/24 11:44:00 EDT morphine, 4 mg = 1 mL, Injection, IV Push, Once, Stop date 04/08/24 14:16:00 EDT, STAT, Start date 04/08/24 14:16:00 EDT, 04/08/24 14:16:00 EDT ondansetron, 4 mg = 1 tab(s), Oral, q8hr, PRN Nausea/Vomiting, # 12 tab(s), Refills(s) 0, Pharmacy: [facility]/pharmacy #[id number], 167, cm, 04/08/24 11:39:00 EDT, Height/Length Dosing, 77, kg, 04/08/24 11:39:00 EDT, Weight Dosing potassium bicarbonate, 50 mEq = 2 tab(s), Tab-Eff, Oral, Once, Stop date 04/08/24 13:42:00 EDT, STAT, Start date 04/08/24 13:42:00 EDT, 04/08/24 13:42:00 EDT predniSONE, as directed, Oral, As Directed, 6 tabs for 4 days,5 tabs for 4 days,4 tabs for 4 days,3 tabs for 4 days, then resume your maintenance 20 mg of prednisone., # 72 tab(s), Refills(s) 0, Pharmacy: [facility]/pharmacy #[id number], 167, cm, 04/08/24 11:39:00 EDT, Height... promethazine 12.5 mg + Sodium Chloride 0.9% intravenous solution 50 mL, Injection, IV Piggyback, Once, Stop date 04/08/24 11:44:00 EDT, STAT, Start date 04/08/24 11:44:00 EDT, 151.5 mL/hr, Infuse over 20 minute(s) promethazine 12.5 mg + Sodium Chloride 0.9% intravenous solution 50 mL, Injection, IV Piggyback, Once, Stop date 04/08/24 13:58:00 EDT, STAT, Start date 04/08/24 13:58:00 EDT, 151.5 mL/hr, Infuse over 20 minute(s) Sodium Chloride 0.9% intravenous solution, 1,000 mL, Soln-IV, IV, Once, Stop date 04/08/24 13:42:00 EDT, STAT, Start date 04/08/24 13:42:00 EDT, Infuse over 61, minute(s) Sodium Chloride 0.9% intravenous solution, 1,000 mL, IV, Stop date 04/08/24 12:15:00 EDT, Start date 04/08/24 12:15:00 EDT Basic Metabolic Panel Beta hCG Qual CBC w/ Auto Diff CT Abdomen/Pelvis w/ Contrast eGFR Extra Blue Tube Hepatic Function Panel Lipase Level Manual Diff UA with Cult Rflx [facility]07-10-2024 Telephone encounter Note* Telephone Encounter - Maddie Sevilla RN - 04/01/2024 10:38 AM EDT Received message from pharmacy, confirmed that patient is okay to start pens at week 6, as in therapy plan. Pharmacy team stated they will call patient end of March to set up pen pickup/shipment. Patient also verbalized to me that she would be requesting in the meantime her prescription be switched to [facility] d/t proximity to home. [facility]07-10-2024 Miscellaneous Notes* Telephone Encounter - Maddie Sevilla RN - 04/01/2024 10:38 AM EDT Received message from pharmacy, confirmed that patient is okay to start pens at week 6, as in therapy plan. Pharmacy team stated they will call patient end of March to set up pen pickup/shipment. Patient also verbalized to me that she would be requesting in the meantime her prescription be switched to [facility] d/t proximity to home. * Telephone Encounter - Maddie Sevilla RN - 04/01/2024 9:55 AM EDT Patient has completed induction doses of entyvio, orders are for two induction doses IV, patient would be moving to pen for week 6 dose per therapy plan. Pharmacy note states she should be receiving IV doses weeks 0, 2, and 6 - starting the pen at week 14, in contrast with therapy plan. I told patient she would be finished with IV doses and to plan to do home injection at week 6 unless otherwise instructed from Dr. Humphries/pharmacy team. Just wanted to clarify with pharmacy - okay to start pens? Also, nursing communication order states on completion of induction doses to [employer] [facility] for setup of home injections. If someone could call patient and advise next steps that would be appreciated! [facility] Telephone encounter Note * Telephone Encounter - Maddie Sevilla RN - 04/01/2024 9:55 AM EDT Patient has completed induction doses of entyvio, orders are for two induction doses IV, patient would be moving to pen for week 6 dose per therapy plan. Pharmacy note states she should be receiving IV doses weeks 0, 2, and 6 - starting the pen at week 14, in contrast with therapy plan. I told patient she would be finished with IV doses and to plan to do home injection at week 6 unless otherwise instructed from Dr. Humphries/pharmacy team. Just wanted to clarify with pharmacy - okay to start pens? Also, nursing communication order states on completion of induction doses to [employer] [facility] for setup of home injections. If someone could call patient and advise next steps that would be appreciated! [facility]07-10-2024 Nurse Note* Maddie Sevilla RN - 04/01/2024 9:42 AM EDT Rola Aguilar Reason for therapy: IBD Ordering Physician: Dr. Humphries Supervising/Billing Physician: Dr. Tamera MARMOLEJO MEDICATIONS ADMINISTERED: Acetaminophen (see MAR) INFUSION MEDICATION ADMINISTERED: Entyvio (see MAR) Dose #: 2 Start: 09 / Stop: 1012 Fevers in last 7 days: No Rash: No Taking antibiotics: No Infusion tolerated well? No IV: See LDA flowsheet/avatar Vital Signs: See VS flowsheet Additional Notes if applicable: N/A Electronically Signed By: Maddie Sevilla RN AMBULATORY PATIENT EDUCATION NOTE TOPIC: Entyvio infusion READINESS TO LEARN INSTRUCTION PROVIDED TO: Patient, readness to learn accessed prior to procedure COGNITIVE ABILITY: Alert and oriented PTED MOTIVATION TO LEARN: Interested FAMILY SUPPORT: Unable to assess - Family not present IPATIENT LEARNS BEST BY: Individual Instruction Verbal Instruction FACTORS AFFECTING LEARNING: None PHYSICAL LIMITATIONS AFFECTING LEARNING: None LEARNING RESPONSE METHOD OF INSTRUCTION: Individual instruction PATIENT / FAMILY RESPONSE: Verbalizes understanding of: WORSENING CONDITION- Signs and symptoms of aworsening condition that warrant a call to the physician INFUSION COMPLICATIONS-Signs and symptoms of infusion reaction and/or IV infiltration FOLLOW-UP PLAN: Recommend - Recommend continued instruction and follow up as directed [facility]07-10-2024 Nurse Note* Maddie Sevilla RN - 04/01/2024 9:42 AM EDT Rola Aguilar Reason for therapy: IBD Ordering Physician: Dr. Humphries Supervising/Billing Physician: Dr. Philip PRE MEDICATIONS ADMINISTERED: Acetaminophen (see MAR) INFUSION MEDICATION ADMINISTERED: Entyvio (see MAR) Dose #: 2 Start: 0937 / Stop: 1012 Fevers in last 7 days: No Rash: No Taking antibiotics: No Infusion tolerated well? No IV: See LDA flowsheet/avatar Vital Signs: See VS flowsheet Additional Notes if applicable: N/A Electronically Signed By: Maddie Sevilla RN AMBULATORY PATIENT EDUCATION NOTE TOPIC: Entyvio infusion READINESS TO LEARN INSTRUCTION PROVIDED TO: Patient, readness to learn accessed prior to procedure COGNITIVE ABILITY: Alert and oriented PTED MOTIVATION TO LEARN: Interested FAMILY SUPPORT: Unable to assess - Family not present IPATIENT LEARNS BEST BY: Individual Instruction Verbal Instruction FACTORS AFFECTING LEARNING: None PHYSICAL LIMITATIONS AFFECTING LEARNING: None LEARNING RESPONSE METHOD OF INSTRUCTION: Individual instruction PATIENT / FAMILY RESPONSE: Verbalizes understanding of: WORSENING CONDITION- Signs and symptoms of aworsening condition that warrant a call to the physician INFUSION COMPLICATIONS-Signs and symptoms of infusion reaction and/or IV infiltration FOLLOW-UP PLAN: Recommend - Recommend continued instruction and follow up as directed documented in [facility] Telephone encounter Note * Telephone Encounter - Maddie Sevilla RN - 03/25/2024 3:00 PM EDT Called patient re: missed appt for entyvio infusion. Left voicemail reminding patient of loading dose schedule, requesting a return call to us & phone number provided to [facility] infusion center. [facility]07-03-2024 Miscellaneous Notes* Telephone Encounter - Maddie Sevilla RN - 03/25/2024 3:00 PM EDT Called patient re: missed appt for entyvio infusion. Left voicemail reminding patient of loading dose schedule, requesting a return call to us & phone number provided to [facility] infusion center. documented in this encounterAvita [facility] System06-20-[facility]24 Nurse Note* Jagjit Yap RN - 03/12/2024 10:27 AM EDT Rola Aguilar Reason for therapy: IBD Ordering Physician: Dr. Humphries Supervising/Billing Physician: Dr. Ornelas PRE MEDICATIONS ADMINISTERED: Acetaminophen (see MAR) INFUSION MEDICATION ADMINISTERED: Entyvio (see MAR) Dose #: 1 Start: 0940 AM / Stop: 1015 AM Fevers in last 7 days: No Rash: No Taking antibiotics: No Infusion tolerated well? Yes IV: See LDA flowsheet/avatar Vital Signs: See VS flowsheet Additional Notes if applicable: N/A AMBULATORY PATIENT EDUCATION NOTE TOPIC: Entyvio infusion READINESS TO LEARN INSTRUCTION PROVIDED TO: Patient, readness to learn accessed prior to procedure COGNITIVE ABILITY: Alert and oriented PTED MOTIVATION TO LEARN: Interested FAMILY SUPPORT: Unable to assess - Family not present IPATIENT LEARNS BEST BY: Individual Instruction Verbal Instruction FACTORS AFFECTING LEARNING: None PHYSICAL LIMITATIONS AFFECTING LEARNING: None LEARNING RESPONSE METHOD OF INSTRUCTION: Individual instruction PATIENT / FAMILY RESPONSE: Verbalizes understanding of: WORSENING CONDITION- Signs and symptoms of aworsening condition that warrant a call to the physician INFUSION COMPLICATIONS-Signs and symptoms of infusion reaction and/or IV infiltration FOLLOW-UP PLAN: Patient instructed to call with any further issues [facility]06-20-20[facility] Nurse Note* Jagjit Yap RN - 03/12/2024 10:27 AM EDT Rola Aguilar Reason for therapy: IBD Ordering Physician: Dr. Humphries Supervising/Billing Physician: Dr. Ceci MARMOLEJO MEDICATIONS ADMINISTERED: Acetaminophen (see MAR) INFUSION MEDICATION ADMINISTERED: Entyvio (see MAR) Dose #: 1 Start: 0940 AM / Stop: 1015 AM Fevers in last 7 days: No Rash: No Taking antibiotics: No Infusion tolerated well? Yes IV: See LDA flowsheet/avatar Vital Signs: See VS flowsheet Additional Notes if applicable: N/A AMBULATORY PATIENT EDUCATION NOTE TOPIC: Entyvio infusion READINESS TO LEARN INSTRUCTION PROVIDED TO: Patient, readness to learn accessed prior to procedure COGNITIVE ABILITY: Alert and oriented PTED MOTIVATION TO LEARN: Interested FAMILY SUPPORT: Unable to assess - Family not present IPATIENT LEARNS BEST BY: Individual Instruction Verbal Instruction FACTORS AFFECTING LEARNING: None PHYSICAL LIMITATIONS AFFECTING LEARNING: None LEARNING RESPONSE METHOD OF INSTRUCTION: Individual instruction PATIENT / FAMILY RESPONSE: Verbalizes understanding of: WORSENING CONDITION- Signs and symptoms of aworsening condition that warrant a call to the physician INFUSION COMPLICATIONS-Signs and symptoms of infusion reaction and/or IV infiltration FOLLOW-UP PLAN: Patient instructed to call with any further issues documented in this encounterAv[facility] System06-[facility]24 Telephone encounter Note * Telephone Encounter - Ira Wilder - 03/09/2024 1:53 PM EDT Infusion scheduled . 03/12. Requested to schedule subsequent visits when she is here. Scheduled follow up with Dr. Humphries on 06/02 at [facility] Thank you Ira Wilder PSS [facility]06-17-2024 Miscellaneous Notes* Telephone Encounter - Ira Wilder - 03/09/2024 1:53 PM EDT Infusion scheduled Th. 03/12. Requested to schedule subsequent visits when she is here. Scheduled follow up with Dr. Humphries on 06/02 at [facility] Thank you Ira Wilder PSS * Telephone Encounter - Brittny Gan RN - 03/09/2024 1:06 PM EDT Images from the original note were not included. [facility] scheduling team: Please schedule the following Entyvio infusion Infusions to be given on week 0, 2 and 6 ( week of 03/09, 03/23, 04/20) Please call patient with appt details Thank you Brittny Gan RN [facility] Scheduling team: Please schedule the following May with Doctor Diana Please call patient with appt details Thank you Brittny Gan RN I spoke with Rola, advised plan has been approved Entyvio infusion week 0, 2 and 6 ( week of 03/09, 03/23, 04/20) Pen to start week 14 (06/15/24) I would have scheduling call her to arrange appts Message routed to [facility] so they are aware for delivery of pen Rola verbalized understanding No further questions Brittny Gan RN Auth/Cert 03/09/2024 11:49 AM Bandar Davalos - - Note: === PHARMACY TEAM ==== APPROVAL RECEIVED Benefit Type: Medical Insurance Name: [employer] Location Tax ID: [id number]( ) Authorization received via fax Drug Name(s) & HCPCS Code(s): J3380 (HCPCS) - INJECTION, VEDOLIZUMAB Approval Date Range: 02-27-2024 to 05-29-2024 Approval #: [id number] Dose & Frequency: 300mg weeks 0,2,6 # Visits/Treatments (if applicable): 3 Temporary Site of Care Approval: N/A * Telephone Encounter - Brittny Gan RN - 03/05/2024 3:03 PM EDT PA on Entyvio infusions still pending Will check status on 03/09/24 Brittny Gan RN * Telephone Encounter - Brittny Gan RN - 02/26/2024 3:01 PM EDT I spoke with Rola yesterday in [place] to discuss process for Entyvio ordering Advised pens will be sent to [facility] for insurance approval Plan for loading dose of infusions on week 0, 2 and 6 will also be sent to insurance Once approval comes back for both infusion and pen we can schedule the infusions at [facility] Advised patient I will be in contact with her on the status Brittny Gan RN documented in this encounterAv[facility] System06-[facility]24 Telephone encounter Note * Telephone Encounter - Brittny Gan RN - 03/09/2024 1:06 PM EDT Images from the original note were not included. [facility] scheduling team: Please schedule the following Entyvio infusion Infusions to be given on week 0, 2 and 6 ( week of 03/09, 03/23, 04/20) Please call patient with appt details Thank you Brittny Gan RN [facility] Scheduling team: Please schedule the following May with Doctor Humphries Please call patient with appt details Thank you Brittny Gan RN I spoke with [place] plan has been approved Entyvio infusion week 0, 2 and 6 ( week of 03/09, 03/23, 04/20) Pen to start week 14 (06/15/24) I would have scheduling call her to arrange appts Message routed to [facility] so they are aware for delivery of pen Rola verbalized understanding No further questions Brittny Gan RN Auth/Cert 03/09/2024 11:49 AM Bandar Davalos - - Note: === PHARMACY TEAM ==== APPROVAL RECEIVED Benefit Type: Medical Insurance Name: [employer] Location Tax ID: [id number]( ) Authorization received via fax Drug Name(s) & HCPCS Code(s): J3380 (HCPCS) - INJECTION, VEDOLIZUMAB Approval Date Range: 02-27-2024 to 05-29-2024 Approval #: [id number] Dose & Frequency: 300mg weeks 0,2,6 # Visits/Treatments (if applicable): 3 Temporary Site of Care Approval: N/A [facility]06-16[facility] Hospital Discharge instructions Patient Education 03/08/2024 15:41:51 Crohn's Disease Crohn's Disease Crohn's disease is a long-lasting (chronic) disease that affects the gastrointestinal (GI) tract. Crohn's disease often causes irritation and inflammation in the small intestine and the beginning of the large intestine, but it can affect any part of the GI tract. Crohn's disease is part of a group o f illnesses that are known as inflammatory bowel disease (IBD). Crohn's disease may start slowly and get worse over time. Symptoms may come and go. They may also go away for months or even years at a time (remission). What are the causes? The exact cause of this condition is not known. It may involve a response that causes your body's disease-fighting system (immune system) to attack healthy cells and tissues (autoimmune response). Bacteria, genes, and your environment may also play a role. What increases the risk? The following factors may make you more likely to develop this condition: Having a family member who has Crohn's disease, another IBD, or an autoimmune condition. Using products that contain nicotine or tobacco, such as cigarettes and e-cigarettes. Being in your 20s. Having Eastern ancestry. What are the signs or symptoms? The main symptoms of this condition involve your GI tract. These include: Diarrhea. Pain or cramping in the abdomen commonly felt in the lower right side of the abdomen. Frequent watery or bloody stools. Constipation. This may mean having: ?Fewer bowel movements in a week than normal. ?Difficulty having a bowel movement. ?Stools that are dry, hard, or larger than normal. Rectal bleeding or pain. An urgent need to have a bowel movement. The feeling that you are not finished having a bowel movement. Other symptoms may include: Unexplained weight loss. Tiredness (fatigue). Fever. Nausea or appetite loss. Joint pain. Vision changes. Red bumps or sores on the skin. Sores inside the mouth. How is this diagnosed? This condition may be diagnosed based on: Your symptoms and medical history. A physical exam. Tests, which may include: ?Blood tests. ?Stool sample tests. ?Imaging tests, such as X-rays and CT scans. ?Tests to examine the inside of your intestines using a long, flexible tube that has a light and a camera on the end (colonoscopy). ?A procedure to remove tissue samples from inside your bowel for testing (biopsy). You may need to work with a health care provider who specializes in diseases of the digestive tract(clinical radiologist). How is this treated? There is no cure for this condition, and it affects each person differently. Treatment can help youmanage your symptoms. Your treatment may include: Medicines. These may be used by themselves or with other treatments (combination therapy). You may be given medicines that help to: ?Reduce inflammation. ?Control your immune system activity. ?Fight infections. ?Relieve cramps and prevent diarrhea. ?Control your pain. Surgery. You may need surgery if: ?Medicines and other treatments are not working anymore. ?You develop complications from severe Crohn's disease. ?A section of your intestine becomes so damaged that it needs to be removed. Lifestyle changes: ?Maintaining eating or drinking restrictions. ?Reducing or eliminating use of alcohol or nicotine. Follow these instructions at home: Medicines Take njmg-vut-dsbelry and prescription medicines only as told by your health care provider. If you were prescribed an antibiotic, take it as told by your health care provider. Do not stop taking the antibiotic even if you start to feel better. Avoid taking ibuprofen or other NSAID medicines if possible. These can make Crohn's disease worse. Eating and drinking Talk with your health care provider or a registered dietitian about what diet is best for you. Drink enough fluid to keep your urine pale yellow. If you are taking steroids to reduce inflammation, get plenty of calcium in your diet to help keep your bones healthy. You may also consider taking a calcium supplement with vitamin D. Keep a food diary to identify foods that make your symptoms better or worse, and avoid foods that cause symptoms. Follow instructions from your health care provider about eating or drinking restrictions if you have worsening symptoms (flare-up). If you drink alcohol: ?Limit how much you have to: ?0 1 drink a day for women who are not . ?0 2 drinks a day for men. ?Know how much alcohol is in a drink. In the [place] one drink equals one 12 oz bottle of beer (355 mL), one 5 oz glass of wine (148 mL), or one 1 oz glass of hard liquor (44 mL). General instructions Make sure you get all the vaccines that your health care provider recommends, especially pneumonia (pneumococcal) and flu (influenza) vaccines. Do not use any products that contain nicotine or tobacco. These products include cigarettes, chewing tobacco, and vaping devices, such as e-cigarettes. If you need help quitting, ask your health careprovider. Exercise every day, or as often as told by your health care provider. Keep all follow-up visits. This is important. Contact a health care provider if: You have diarrhea, cramps in your abdomen, and other GI problems that are present almost all the time. Your symptoms do not improve with treatment, your symptoms get worse, or you develop new symptoms. You cannot pass stools. You continue to lose weight. You develop a rash or sores on your skin. You develop eye problems. You have a fever. Get help right away if: You have bloody diarrhea. You have severe pain in your abdomen. These symptoms may be an emergency. Get help right away. Call 911. Do not wait to see if the symptoms will go away. Do not drive yourself to the hospital. Summary Crohn's disease affects each person differently. The cause of this condition is not known, but it may involve a response that causes your body's immune system to attack healthy cells and tissues. There are multiple treatment options that can help you manage the condition. Talk with your health care provider or a registered dietitian about what diet is best for you. Make sure you get all the vaccines that your health care provider recommends, especially pneumonia (pneumococcal) and flu (influenza) vaccines. Get help right away if you have bloody diarrhea or severe pain in your abdomen. This information is not intended to replace advice given to you by your health care provider. Make sure you discuss any questions you have with your health care provider. Document Revised: 03/15/2022 Document Reviewed: 03/15/2022 [employer] Patient Education 2022 [employer]. 03/08/2024 15:41:51 Abdominal Pain, Adult Abdominal Pain, Adult Pain in the abdomen (abdominal pain) can be caused by many things. Often, abdominal pain is not serious and it gets better with no treatment or by being treated at home. However, sometimes abdominal pain is serious. Your health care provider will ask questions about your medical history and do a physical exam to try to determine the cause of your abdominal pain. Follow these instructions at home: Medicines Take hpww-nix-oixcabw and prescription medicines only as told by your health care provider. Do not take a laxative unless told by your health care provider. General instructions Watch your condition for any changes. Drink enough fluid to keep your urine pale yellow. Keep all follow-up visits as told by your health care provider. This is important. Contact a health care provider if: Your abdominal pain changes or gets worse. You are not hungry or you lose weight without trying. You are constipated or have diarrhea for more than 2 3 days. You have pain when you urinate or have a bowel movement. Your abdominal pain wakes you up at night. Your pain gets worse with meals, after eating, or with certain foods. You are vomiting and cannot keep anything down. You have a fever. You have blood in your urine. Get help right away if: Your pain does not go away as soon as your health care provider told you to expect. You cannot stop vomiting. Your pain is only in areas of the abdomen, such as the right side or the left lower portion of the abdomen. Pain on the right side could be caused by appendicitis. You have bloody or black stools, or stools that look like tar. You have severe pain, cramping, or bloating in your abdomen. You have signs of dehydration, such as: ?Dark urine, very little urine, or no urine. ?Cracked lips. ?Dry mouth. ?Sunken eyes. ?Sleepiness. ?Weakness. You have trouble breathing or chest pain. Summary Often, abdominal pain is not serious and it gets better with no treatment or by being treated at home. However, sometimes abdominal pain is serious. Watch your condition for any changes. Take ltsu-izz-hwzdktn and prescription medicines only as told by your health care provider. Contact a health care provider if your abdominal pain changes or gets worse. Get help right away if you have severe pain, cramping, or bloating in your abdomen. This information is not intended to replace advice given to you by your health care provider. Make sure you discuss any questions you have with your health care provider. Document Revised: 10/28/2020 Document Reviewed: 01/18/2020 [employer] Patient Education 2022 [employer]. Follow Up Care 03/08/2024 09:42:02 With:Make sure to follow-up with your primary doctor and your GI as discussed. Return to the emergency room if your pain gets worse or any new symptoms. Address:Unknown When:03/11/2024 15:24:40 [facility]06-16-2024 Evaluation + Plan noteExtracted from: Title:ED Note Author:Lisandro Mishra, Carolyn Ramirez te:03/08/24 1. Abdominal pain (R10.9: Un specified abdominal pain) Ordered: acetaminophen-oxycodone, 1 tab(s), Oral, q6hr as needed for pain, 12 tab(s), Refill(s) 0, [facility]/pharmacy #[id number], 167, cm, 03/08/24 9:51:00 EDT, Height/Length Dosing, 86.2, kg, 03/08/24 9:51:00 EDT, Weight Dosing 2. Exacerbation of Crohn's disease (K50.90: Crohn's disease, unspecified, without complications) Orders: methylPREDNISolone, 125 mg = 2 mL, Injection, IV Push, Once, Stop date 03/08/24 10:04:00 EDT, STAT, Start date 03/08/24 10:04:00 EDT, 03/08/24 10:04:00 EDT morphine, 4 mg = 1 mL, Injection, IV Push, Once, Stop date 03/08/24 11:49:00 EDT, STAT, Start date 03/08/24 11:49:00 EDT, 03/08/24 11:49:00 EDT morphine, 4 mg = 1 mL, Injection, IV Push, Once, Stop date 03/08/24 10:05:00 EDT, STAT, Start date 03/08/24 10:05:00 EDT, 03/08/24 10:05:00 EDT predniSONE, See Instructions, Take 6 tablets once a day for 4 days, then 5 tablets once a day for 4 days, then 4 tablets once a day for 4 days, then 3 tablets a day for 4 days, then continue with your 20 mg prednisone daily, # 72 tab(s), Refills(s) 0, Pharmacy: [facility]... promethazine 25 mg + Sodium Chloride 0.9% intravenous solution 50 mL, Injection, IV Piggyback, Once, Stop date 03/08/24 10:04:00 EDT, STAT, Start date 03/08/24 10:04:00 EDT, 153 mL/hr, Infuse over 20 minute(s) Sodium Chloride 0.9% intravenous solution, 1,000 mL, Soln-IV, IV, Once, Stop date 03/08/24 11:48:00 EDT, STAT, Start date 03/08/24 11:48:00 EDT, Infuse over 61, minute(s) Sodium Chloride 0.9% intravenous solution, 1,000 mL, Soln-IV, IV, Once, Stop date 03/08/24 10:04:00 EDT, STAT, Start date 03/08/24 10:04:00 EDT, Infuse over 61, minute(s) Basic Metabolic Panel CBC w/ Auto Diff CT Abdomen/Pelvis w/ Contrast eGFR Extra SST Tube Hepatic Function Panel Lipase Level PT & PTT U Beta Hcg Qual UA with Cult Rflx [facility]06-13-2024 Telephone encounter Note* Telephone Encounter - Brittny Gan RN - 03/05/2024 3:03 PM EDT PA on Entyvio infusions still pending Will check status on 03/09/24 Brittny Elvia, RN [facility]06-12-2024 Hospital Discharge instructions Patient Education 03/04/2024 13:06:48 Diarrhea, Adult Diarrhea, Adult Diarrhea is frequent loose and watery bowel movements. Diarrhea can make you feel weak and cause you to become dehydrated. Dehydration can make you tired and thirsty, cause you to have a dry mouth, and decrease how often you urinate. Diarrhea typically lasts 2 3 days. However, it can last longer if it is a sign of something more serious. It is important to treat your diarrhea as told by your health care provider. Follow these instructions at home: Eating and drinking Follow these recommendations as told by your health care provider: Take an oral rehydration solution (ORS). This is an kwzn-dan-tgrxoje medicine that helps return your body to its normal balance of nutrients and water. It is found at pharmacies and retail stores. Drink plenty of fluids, such as water, ice chips, diluted fruit juice, and low- calorie sports drinks. You can drink milk also, if desired. Avoid drinking fluids that contain a lot of sugar or caffeine, such as energy drinks, sports drinks, and soda. Eat bland, lbef-ds-clcwgs foods in small amounts as you are able. These foods include bananas, applesauce, rice, lean meats, toast, and crackers. Avoid alcohol. Avoid spicy or fatty foods. Medicines Take bxfb-alg-xkyvmgo and prescription medicines only as told by your health care provider. If you were prescribed an antibiotic medicine, take it as told by your health care provider. Do notstop using the antibiotic even if you start to feel better. General instructions Wash your hands often using soap and water. If soap and water are not available, use a hand judicial administrative assistant. Others in the household should wash their hands as well. Hands should be washed: ?After using the toilet or changing a diaper. ?Before preparing, cooking, or serving food. ?While caring for a sick person or while visiting someone in a hospital. Drink enough fluid to keep your urine pale yellow. Rest at home while you recover. Watch your condition for any changes. Take a warm bath to relieve any burning or pain from frequent diarrhea episodes. Keep all follow-up visits as told by your health care provider. This is important. Contact a health care provider if: You have a fever. Your diarrhea gets worse. You have new symptoms. You cannot keep fluids down. You feel light-headed or dizzy. You have a headache. You have muscle cramps. Get help right away if: You have chest pain. You feel extremely weak or you faint. You have bloody or black stools or stools that look like tar. You have severe pain, cramping, or bloating in your abdomen. You have trouble breathing or you are breathing very quickly. Your heart is beating very quickly. Your skin feels cold and clammy. You feel confused. You have signs of dehydration, such as: ?Dark urine, very little urine, or no urine. ?Cracked lips. ?Dry mouth. ?Sunken eyes. ?Sleepiness. ?Weakness. Summary Diarrhea is frequent loose and sometimes watery bowel movements. Diarrhea can make you feel weak and cause you to become dehydrated. Drink enough fluids to keep your urine pale yellow. Make sure that you wash your hands after using the toilet. If soap and water are not available, usehand judicial administrative assistant. Contact a health care provider if your diarrhea gets worse or you have new symptoms. Get help right away if you have signs of dehydration. This information is not intended to replace advice given to you by your health care provider. Make sure you discuss any questions you have with your health care provider. Document Revised: 11/30/2022 Document Reviewed: 03/21/2022 [employer] Patient Education 2022 [employer]. 03/04/2024 13:06:48 Nausea and Vomiting, Adult Nausea and Vomiting, Adult Nausea is the feeling that you have an upset stomach or that you are about to vomit. As nausea getsworse, it can lead to vomiting. Vomiting is when stomach contents forcefully come out of your mouthas a result of nausea. Vomiting can make you feel weak and cause you to become dehydrated. Dehydration can make you feel tired and thirsty, cause you to have a dry mouth, and decrease how often you urinate. Older adults and people with other diseases or a weak disease-fighting system (immune system) are at higher risk for dehydration. It is important to treat your nausea and vomiting as told by your health care provider. Follow these instructions at home: Watch your symptoms for any changes. Tell your health care provider about them. Eating and drinking Take an oral rehydration solution (ORS). This is a drink that is sold at pharmacies and retail stores. Drink clear fluids slowly and in small amounts as you are able. Clear fluids include water, ice chips, low-calorie sports drinks, and fruit juice that has water added (diluted fruit juice). Eat bland, onfx-et-arbpbg foods in small amounts as you are able. These foods include bananas, applesauce, rice, lean meats, toast, and crackers. Avoid fluids that contain a lot of sugar or caffeine, such as energy drinks, sports drinks, and soda. Avoid alcohol. Avoid spicy or fatty foods. General instructions Take paij-hza-xkdpyib and prescription medicines only as told by your health care provider. Drink enough fluid to keep your urine pale yellow. Wash your hands often using soap and water for at least 20 seconds. If soap and water are not available, use hand judicial administrative assistant. Make sure that everyone in your household washes their hands well and often. Rest at home while you recover. Watch your condition for any changes. Take slow and deep breaths when you feel nauseous. Keep all follow-up visits. This is important. Contact a health care provider if: Your symptoms get worse. You have new symptoms. You have a fever. You cannot drink fluids without vomiting. Your nausea does not go away after 2 days. You feel light-headed or dizzy. You have a headache. You have muscle cramps. You have a rash. You have pain while urinating. Get help right away if: You have pain in your chest, neck, arm, or jaw. You feel extremely weak or you faint. You have persistent vomiting. You have vomit that is bright red or looks like black coffee grounds. You have bloody or black stools (feces) or stools that look like tar. You have a severe headache, a stiff neck, or both. You have severe pain, cramping, or bloating in your abdomen. You have difficulty breathing, or you are breathing very quickly. Your heart is beating very quickly. Your skin feels cold and clammy. You feel confused. You have signs of dehydration, such as: ?Dark urine, very little urine, or no urine. ?Cracked lips. ?Dry mouth. ?Sunken eyes. ?Sleepiness. ?Weakness. These symptoms may be an emergency. Get help right away. Call 911. Do not wait to see if the symptoms will go away. Do not drive yourself to the hospital. Summary Nausea is the feeling that you have an upset stomach or that you are about to vomit. As nausea getsworse, it can lead to vomiting. Vomiting can make you feel weak and cause you to become dehydrated. Follow instructions from your health care provider about eating and drinking to prevent dehydration. Take eosy-kej-xscslft and prescription medicines only as told by your health care provider. Contact your health care provider if your symptoms get worse, or you have new symptoms. Keep all follow-up visits. This is important. This information is not intended to replace advice given to you by your health care provider. Make sure you discuss any questions you have with your health care provider. Document Revised: 03/16/2022 Document Reviewed: 03/16/2022 [employer] Patient Education 2022 [employer]. 03/04/2024 13:06:48 Abdominal Pain, Adult Abdominal Pain, Adult Pain in the abdomen (abdominal pain) can be caused by many things. Often, abdominal pain is not serious and it gets better with no treatment or by being treated at home. However, sometimes abdominal pain is serious. Your health care provider will ask questions about your medical history and do a physical exam to try to determine the cause of your abdominal pain. Follow these instructions at home: Medicines Take fxnx-jzj-vozekmu and prescription medicines only as told by your health care provider. Do not take a laxative unless told by your health care provider. General instructions Watch your condition for any changes. Drink enough fluid to keep your urine pale yellow. Keep all follow-up visits as told by your health care provider. This is important. Contact a health care provider if: Your abdominal pain changes or gets worse. You are not hungry or you lose weight without trying. You are constipated or have diarrhea for more than 2 3 days. You have pain when you urinate or have a bowel movement. Your abdominal pain wakes you up at night. Your pain gets worse with meals, after eating, or with certain foods. You are vomiting and cannot keep anything down. You have a fever. You have blood in your urine. Get help right away if: Your pain does not go away as soon as your health care provider told you to expect. You cannot stop vomiting. Your pain is only in areas of the abdomen, such as the right side or the left lower portion of the abdomen. Pain on the right side could be caused by appendicitis. You have bloody or black stools, or stools that look like tar. You have severe pain, cramping, or bloating in your abdomen. You have signs of dehydration, such as: ?Dark urine, very little urine, or no urine. ?Cracked lips. ?Dry mouth. ?Sunken eyes. ?Sleepiness. ?Weakness. You have trouble breathing or chest pain. Summary Often, abdominal pain is not serious and it gets better with no treatment or by being treated at home. However, sometimes abdominal pain is serious. Watch your condition for any changes. Take vgnx-rej-iyacwcu and prescription medicines only as told by your health care provider. Contact a health care provider if your abdominal pain changes or gets worse. Get help right away if you have severe pain, cramping, or bloating in your abdomen. This information is not intended to replace advice given to you by your health care provider. Make sure you discuss any questions you have with your health care provider. Document Revised: 10/28/2020 Document Reviewed: 01/18/2020 [employer] Patient Education 2022 [employer]. Follow Up Care 03/04/2024 09:15:36 With:Make sure to follow-up with your primary doctor and your GI doctor as discussed. Return to the emergency room if your pain gets worse, vomiting recurs or any new symptoms. Address:Unknown When:03/07/2024 12:58:23 [facility]06-12-2024 Evaluation + Plan noteExtracted from: Title:ED Note Author:Carolyn Mcmahon M.D. te:03/04/24 1. Abdominal pain (R10.9: Un specified abdominal pain) 2. Vomiting and diarrhea (R11.10: Vomiting, unspecified) Diarrhea, unspecified (R19.7: Diarrhea, unspecified) Orders: dicyclomine, 20 mg = 2 cap(s), Oral, QID, # 20 cap(s), Refills(s) 0, Pharmacy: [facility]/pharmacy #[id number], 167, cm, 03/04/24 9:30:00 EDT, Height/Length Dosing, 82.6, kg, 03/04/24 9:30:00 EDT, Weight Dosing famotidine, 20 mg = 2 mL, Soln-IV, IV Push, Once, Stop date 03/04/24 9:32:00 EDT, STAT, Start date 03/04/24 9:32:00 EDT, 03/04/24 9:32:00 EDT morphine, 4 mg = 1 mL, Injection, IV Push, Once, Stop date 03/04/24 9:32:00 EDT, STAT, Start date 03/04/24 9:32:00 EDT, 03/04/24 9:32:00 EDT ondansetron, 4 mg = 2 mL, Injection, IV Push, Once, Stop date 03/04/24 9:32:00 EDT, STAT, Start date 03/04/24 9:32:00 EDT, 03/04/24 9:32:00 EDT ondansetron, 4 mg = 1 tab(s), Oral, q6hr, PRN Nausea/Vomiting, # 12 tab(s), Refills(s) 0, Pharmacy: [facility]/pharmacy #[id number], 167, cm, 03/04/24 9:30:00 EDT, Height/Length Dosing, 82.6, kg, 03/04/24 9:30:00 EDT, Weight Dosing Sodium Chloride 0.9% intravenous solution, 1,000 mL, Soln-IV, IV, Once, Stop date 03/04/24 9:32:00 EDT, STAT, Start date 03/04/24 9:32:00 EDT, Infuse over 61, minute(s) Basic Metabolic Panel Beta hCG Qual CBC w/ Auto Diff eGFR Extra Blue Tube Extra Tellez Tube Hepatic Function Panel Lipase Level Magnesium Level UA with Cult Rflx Urine Culture Diagnostic Tests Pending * Urine Culture 03/04/24 [facility]06-09-2024 Hospital Discharge instructions Patient Education 03/01/2024 12:07:13 Crohn's Disease Crohn's Disease Crohn's disease is a long-lasting (chronic) disease that affects the gastrointestinal (GI) tract. Crohn's disease often causes irritation and inflammation in the small intestine and the beginning of the large intestine, but it can affect any part of the GI tract. Crohn's disease is part of a group o f illnesses that are known as inflammatory bowel disease (IBD). Crohn's disease may start slowly and get worse over time. Symptoms may come and go. They may also go away for months or even years at a time (remission). What are the causes? The exact cause of this condition is not known. It may involve a response that causes your body's disease-fighting system (immune system) to attack healthy cells and tissues (autoimmune response). Bacteria, genes, and your environment may also play a role. What increases the risk? The following factors may make you more likely to develop this condition: Having a family member who has Crohn's disease, another IBD, or an autoimmune condition. Using products that contain nicotine or tobacco, such as cigarettes and e-cigarettes. Being in your 20s. Having Eastern ancestry. What are the signs or symptoms? The main symptoms of this condition involve your GI tract. These include: Diarrhea. Pain or cramping in the abdomen commonly felt in the lower right side of the abdomen. Frequent watery or bloody stools. Constipation. This may mean having: ?Fewer bowel movements in a week than normal. ?Difficulty having a bowel movement. ?Stools that are dry, hard, or larger than normal. Rectal bleeding or pain. An urgent need to have a bowel movement. The feeling that you are not finished having a bowel movement. Other symptoms may include: Unexplained weight loss. Tiredness (fatigue). Fever. Nausea or appetite loss. Joint pain. Vision changes. Red bumps or sores on the skin. Sores inside the mouth. How is this diagnosed? This condition may be diagnosed based on: Your symptoms and medical history. A physical exam. Tests, which may include: ?Blood tests. ?Stool sample tests. ?Imaging tests, such as X-rays and CT scans. ?Tests to examine the inside of your intestines using a long, flexible tube that has a light and a camera on the end (colonoscopy). ?A procedure to remove tissue samples from inside your bowel for testing (biopsy). You may need to work with a health care provider who specializes in diseases of the digestive tract(clinical radiologist). How is this treated? There is no cure for this condition, and it affects each person differently. Treatment can help youmanage your symptoms. Your treatment may include: Medicines. These may be used by themselves or with other treatments (combination therapy). You may be given medicines that help to: ?Reduce inflammation. ?Control your immune system activity. ?Fight infections. ?Relieve cramps and prevent diarrhea. ?Control your pain. Surgery. You may need surgery if: ?Medicines and other treatments are not working anymore. ?You develop complications from severe Crohn's disease. ?A section of your intestine becomes so damaged that it needs to be removed. Lifestyle changes: ?Maintaining eating or drinking restrictions. ?Reducing or eliminating use of alcohol or nicotine. Follow these instructions at home: Medicines Take wmct-gde-doyjbbx and prescription medicines only as told by your health care provider. If you were prescribed an antibiotic, take it as told by your health care provider. Do not stop taking the antibiotic even if you start to feel better. Avoid taking ibuprofen or other NSAID medicines if possible. These can make Crohn's disease worse. Eating and drinking Talk with your health care provider or a registered dietitian about what diet is best for you. Drink enough fluid to keep your urine pale yellow. If you are taking steroids to reduce inflammation, get plenty of calcium in your diet to help keep your bones healthy. You may also consider taking a calcium supplement with vitamin D. Keep a food diary to identify foods that make your symptoms better or worse, and avoid foods that cause symptoms. Follow instructions from your health care provider about eating or drinking restrictions if you have worsening symptoms (flare-up). If you drink alcohol: ?Limit how much you have to: ?0 1 drink a day for women who are not . ?0 2 drinks a day for men. ?Know how much alcohol is in a drink. In the [place] one drink equals one 12 oz bottle of beer (355 mL), one 5 oz glass of wine (148 mL), or one 1 oz glass of hard liquor (44 mL). General instructions Make sure you get all the vaccines that your health care provider recommends, especially pneumonia (pneumococcal) and flu (influenza) vaccines. Do not use any products that contain nicotine or tobacco. These products include cigarettes, chewing tobacco, and vaping devices, such as e-cigarettes. If you need help quitting, ask your health careprovider. Exercise every day, or as often as told by your health care provider. Keep all follow-up visits. This is important. Contact a health care provider if: You have diarrhea, cramps in your abdomen, and other GI problems that are present almost all the time. Your symptoms do not improve with treatment, your symptoms get worse, or you develop new symptoms. You cannot pass stools. You continue to lose weight. You develop a rash or sores on your skin. You develop eye problems. You have a fever. Get help right away if: You have bloody diarrhea. You have severe pain in your abdomen. These symptoms may be an emergency. Get help right away. Call 911. Do not wait to see if the symptoms will go away. Do not drive yourself to the hospital. Summary Crohn's disease affects each person differently. The cause of this condition is not known, but it may involve a response that causes your body's immune system to attack healthy cells and tissues. There are multiple treatment options that can help you manage the condition. Talk with your health care provider or a registered dietitian about what diet is best for you. Make sure you get all the vaccines that your health care provider recommends, especially pneumonia (pneumococcal) and flu (influenza) vaccines. Get help right away if you have bloody diarrhea or severe pain in your abdomen. This information is not intended to replace advice given to you by your health care provider. Make sure you discuss any questions you have with your health care provider. Document Revised: 03/15/2022 Document Reviewed: 03/15/2022 [employer] Patient Education 2022 [employer]. 03/01/2024 12:07:09 Managing Anxiety, Adult Managing Anxiety, Adult After being diagnosed with anxiety, you may be relieved to know why you have felt or behaved a certain way. You may also feel overwhelmed about the treatment ahead and what it will mean for your life. With care and support, you can manage this condition. How to manage lifestyle changes Managing stress and anxiety Stress is your body's reaction to life changes and events, both good and bad. Most stress will lastjust a few hours, but stress can be ongoing and can lead to more than just stress. Although stress can play a major role in anxiety, it is not the same as anxiety. Stress is usually caused by something external, such as a deadline, test, or competition. Stress normally passes after the triggering event has ended. Anxiety is caused by something internal, such as imagining a terrible outcome or worrying that something will go wrong that will devastate you. Anxiety often does not go away even after the triggering event is over, and it can become long-term (chronic) worry. It is important to understand the differences between stress and anxiety and to manage your stress effectively so that it does not lead connie anxious response. Talk with your health care provider or a counselor to learn more about reducing anxiety and stress.He or she may suggest tension reduction techniques, such as: Music therapy. Spend time creating or listening to music that you enjoy and that inspires you. Mindfulness-based meditation. Practice being aware of your normal breaths while not trying to control your breathing. It can be done while sitting or walking. Centering prayer. This involves focusing on a word, phrase, or sacred image that means something toyou and brings you peace. Deep breathing. To do this, expand your stomach and inhale slowly through your nose. Hold your breath for 3 5 seconds. Then exhale slowly, letting your stomach muscles relax. Self-talk. Learn to notice and identify thought patterns that lead to anxiety reactions and change those patterns to thoughts that feel peaceful. Muscle relaxation. Taking time to tense muscles and then relax them. Choose a tension reduction technique that fits your lifestyle and personality. These techniques take time and practice. Set aside 5 15 minutes a day to do them. Therapists can offer counseling and training in these techniques. The training to help with anxiety may be covered by some insurance plans. Other things you can do to manage stress and anxiety include: Keeping a stress diary. This can help you learn what triggers your reaction and then learn ways to manage your response. Thinking about how you react to certain situations. You may not be able to control everything, but you can control your response. Making time for activities that help you relax and not feeling guilty about spending your time in this way. Doing visual imagery. This involves imagining or creating mental pictures to help you relax. Practicing yoga. Through yoga poses, you can lower tension and promote relaxation. Medicines Medicines can help ease symptoms. Medicines for anxiety include: Antidepressant medicines. These are usually prescribed for long-term daily control. Anti-anxiety medicines. These may be added in severe cases, especially when panic attacks occur. Medicines will be prescribed by a health care provider. When used together, medicines, psychotherapy, and tension reduction techniques may be the most effective treatment. Relationships Relationships can play a big part in helping you recover. Try to spend more time connecting with trusted friends and family members. Consider going to couples counseling if you have a partner, taking family education classes, or going to family therapy. Therapy can help you and others better understand your condition. How to recognize changes in your anxiety Everyone responds differently to treatment for anxiety. Recovery from anxiety happens when symptomsdecrease and stop interfering with your daily activities at home or work. This may mean that you will start to: Have better concentration and focus. Worry will interfere less in your daily thinking. Sleep better. Be less irritable. Have more energy. Have improved memory. It is also important to recognize when your condition is getting worse. Contact your health care provider if your symptoms interfere with home or work and you feel like your condition is not improving. Follow these instructions at home: Activity Exercise. Adults should do the following: ?Exercise for at least 150 minutes each week. The exercise should increase your heart rate and makeyou sweat (moderate-intensity exercise). ?Strengthening exercises at least twice a week. Get the right amount and quality of sleep. Most adults need 7 9 hours of sleep each night. Lifestyle Eat a healthy diet that includes plenty of vegetables, fruits, whole grains, low-fat dairy products, and lean protein. ?Do not eat a lot of foods that are high in fats, added sugars, or salt (sodium). Make choices that simplify your life. Do not use any products that contain nicotine or tobacco. These products include cigarettes, chewing tobacco, and vaping devices, such as e-cigarettes. If you need help quitting, ask your health careprovider. Avoid caffeine, alcohol, and certain bsfd-rwa-rsifbhn cold medicines. These may make you feel worse. Ask your pharmacist which medicines to avoid. General instructions Take iesw-ktz-emzvmsh and prescription medicines only as told by your health care provider. Keep all follow-up visits. This is important. Where to find support You can get help and support from these sources: Self-help groups. Online and community organizations. A trusted spiritual leader. Couples counseling. Family education classes. Family therapy. Where to find more information You may find that joining a support group helps you deal with your anxiety. The following sources can help you locate counselors or support groups near you: Mental Health [place]: www.mentalhealthamerica.net Anxiety and Depression Association of [place] (ADAA): www.adaa.org National [place] on Mental Illness (PAUL): www.paul.org Contact a health care provider if: You have a hard time staying focused or finishing daily tasks. You spend many hours a day feeling worried about everyday life. You become exhausted by worry. You start to have headaches or frequently feel tense. You develop chronic nausea or diarrhea. Get help right away if: You have a racing heart and shortness of breath. You have thoughts of hurting yourself or others. If you ever feel like you may hurt yourself or others, or have thoughts about taking your own life,get help right away. Go to your nearest emergency department or: Call your local emergency services (672 in the [place] Call a suicide crisis helpline, such as the National Suicide Prevention Lifeline at or 291 in the [place] This is open 24 hours a day in the [place] Text the Crisis Text Line at 126411 (in the [place] Summary Taking steps to learn and use tension reduction techniques can help calm you and help prevent triggering an anxiety reaction. When used together, medicines, psychotherapy, and tension reduction techniques may be the most effective treatment. Family, friends, and partners can play a big part in supporting you. This information is not intended to replace advice given to you by your health care provider. Make sure you discuss any questions you have with your health care provider. Document Revised: 04/04/2022 Document Reviewed: 12/31/2021 [employer] Patient Education 2022 [employer]. 03/01/2024 12:07:05 Bipolar I Disorder Bipolar I Disorder Bipolar I disorder is a mental health disorder in which a person has episodes of emotional highs (socorro) and may also have episodes of lows (depression). Bipolar I disorder differs from other bipolardisorders in that it involves extreme episodes of socorro (manic episodes). These episodes last at least one week or involve severe symptoms that require a hospital stay to keep the person safe. What are the causes? The cause of this condition is not known. What increases the risk? The following factors may make you more likely to develop this condition: Having a family member with the disorder. Having an imbalance of certain chemicals in the brain (neurotransmitters). Experiencing stress, such as from illness, financial problems, or a . Having certain conditions that affect the brain or spinal cord (neurologic conditions). Having had a brain injury (trauma). What are the signs or symptoms? Symptoms of bipolar I disorder include the following: Symptoms of socorro Very high self-esteem or self-confidence. Less need for sleep. Unusual talkativeness. Speech may be very fast. Racing thoughts with quick shifts between topics that may or may not be related (flight of ideas). Being much more able or much less able to concentrate. Increased purposeful activity, such as work, studies, or social activity. Increased agitation. This could be pacing, squirming, fidgeting, or finger and toe tapping. Impulsive behavior and poor judgment. These may lead to high-risk activities that are sexual, financial, or physical. Symptoms of depression Extreme sadness, uncontrollable crying, or feeling hopeless, worthless, or numb. Sleep problems, such as trouble falling asleep or staying asleep (insomnia), waking early, or sleeping too much. No longer enjoying things you used to enjoy. Isolation, or spending time alone often. Lack of energy or motivation, and moving more slowly than normal. Trouble making decisions. Increased appetite or loss of appetite. Thoughts of , or wanting to harm yourself. Sometimes, you may have a mixed mood. This means having symptoms of socorro and depression at the same time. Stress can often trigger these symptoms. How is this diagnosed? This condition may be diagnosed based on a mental health evaluation that includes a review of: Emotional episodes. Medical history. Use of alcohol, drugs, and prescription medicines. Certain medical conditions and substances can cause secondary bipolar disorder. This has symptoms like the symptoms of bipolar disorder. Your health care provider may ask you to take a short test to help understand your symptoms. You may also be asked to follow up with a mental health provider for further evaluation or to start treatment. How is this treated? This condition is a long-term (chronic) illness. It is often managed with ongoing treatment rather than treatment only when symptoms occur. A combination of treatments is often used. Treatment may include: Medicines, usually medicines called mood stabilizers. Medicines can be prescribed by a health care provider who specializes in treating mental health disorders (psychiatrist). If symptoms occur during use of a mood stabilizer, other medicines may be added. Talk therapy (psychotherapy) to help you manage bipolar disorder. Talk therapy includes cognitive behavioral therapy (CBT) and family therapy. Psychoeducation. This helps you and others understand how your disorder is managed. Include friendsand family in educational sessions so they learn how best to support you. Methods of managing your condition, such as journaling or relaxation exercises. Exercises include: ?Yoga. ?Meditation. ?Deep breathing. Lifestyle changes, such as: ?Limiting alcohol and drug use. ?Exercising regularly. ?Setting a regular bedtime and wake time. ?Eating a healthy diet. Electroconvulsive therapy (ECT). This is a procedure in which electricity is applied to the brain through the scalp. ECT may be used for severe bipolar disorder when medicine and psychotherapy work too slowly or do not work. Follow these instructions at home: Activity Return to your normal activities as told by your health care provider. Find activities that you enjoy, and make time to do them. Get regular exercise. Lifestyle Follow a set schedule for eating and sleeping. Eat a healthy diet that includes fresh fruits and vegetables, whole grains, low- fat dairy, and leanmeat. Get at least 7 8 hours of sleep each night. Avoid using products that contain nicotine or tobacco. If you want help quitting, ask your health care provider. Avoid alcohol and drugs. They can affect how medicine works and make symptoms worse. General instructions Take jbsc-yqg-domzjee and prescription medicines only as told by your health care provider. You maythink about stopping your medicine, but you need to take all your medicine as prescribed. This helps manage your symptoms. Consider joining a support group. Your health care provider may be able to recommend one. Talk with your family and friends about your treatment goals and how loved ones can help. Keep all follow-up visits. This is important. Where to find more information National [place] on Mental Illness: paul.org National [place] of Mental Health: nimh.nih.gov Contact a health care provider if: Your symptoms get worse, or your loved ones tell you that your symptoms are getting worse. You have uncomfortable side effects from your medicine. You have trouble sleeping. You have trouble doing daily activities. You feel unsafe in your surroundings. You are using alcohol or drugs to manage your symptoms. Get help right away if: You have new symptoms. You have thoughts about harming yourself or others. You are considering suicide. If you ever feel like you may hurt yourself or others, or have thoughts about taking your own life,get help right away. Go to your nearest emergency department or: Call your local emergency services (551 in the [place] Call a suicide crisis helpline, such as the National Suicide Prevention Lifeline at or 897 in the [place] This is open 24 hours a day in the [place] Text the Crisis Text Line at 944104 (in the [place] Summary Bipolar I disorder is a lifelong mental health disorder in which a person has episodes of socorro anddepression. Treatment for this disorder involves a combination of treatments such as medicines and talk and behavioral therapies. Include friends and family in educational sessions so they know how best to support you. Get help right away if you are considering suicide. This information is not intended to replace advice given to you by your health care provider. Make sure you discuss any questions you have with your health care provider. Document Revised: 04/05/2022 Document Reviewed: 03/01/2022 [employer] Patient Education 2022 [employer]. 03/01/2024 12:07:04 Health Risks of Smoking Health Risks of Smoking Smoking tobacco is very bad for your health. Tobacco smoke contains many toxic chemicals that can damage every part of your body. Secondhand smoke can be harmful to those around you. Tobacco or nicotine use can cause many long-term (chronic) diseases. Smoking is difficult to quit because a chemical in tobacco, called nicotine, causes addiction or dependence. When you smoke and inhale, nicotine is absorbed quickly into your bloodstream through yourlungs. Both inhaled and non-inhaled nicotine may be addictive. How can quitting affect me? There are health benefits of quitting smoking. Some benefits happen right away and others take time. Benefits may include: Blood flow, blood pressure, heart rate, and lung capacity may begin to improve. However, any lung damage that has already occurred cannot be repaired. Respiratory symptoms from smoking, such as nasal congestion and cough, may improve over time. Your risk of heart disease, stroke, and cancer is reduced. The overall quality of your health may improve. You may save money, as you will not spend money on tobacco products and may spend less money on smoking-related health issues. What can increase my risk? Smoking harms nearly every organ in the body. People who smoke tobacco have a shorter life expectancy and an increased risk of many serious medical problems. These include: More respiratory infections, such as colds and pneumonia. Cancer. Heart disease. Stroke. Chronic respiratory diseases. Delayed wound healing and increased risk of complications during surgery. Problems with reproduction, , and childbirth, such as infertility, early (premature) births, stillbirths, and defects. Secondhand smoke exposure to children increases the risk of: Sudden syndrome (SIDS). Infections in the nose, throat, or airways (respiratory infections). Chronic respiratory symptoms. What actions can I take to quit? Smoking is an addiction that affects both your body and your mind, and long-time habits can be hardto change. Your health care provider can recommend: Nicotine replacement products, such as patches, gum, and nasal sprays. Use these products only as directed. Do not replace cigarette smoking with electronic cigarettes, which are commonly called e-cigarettes. The safety of e-cigarettes is not known, and some may contain harmful chemicals. Programs and community resources, which may include group support, education, or talk therapy. Prescription medicines to help reduce cravings. A combination of two or more quit methods, which may increase the success of quitting. Where to find support Follow the recommendations from your health care provider about support groups and other assistance. You can also visit: U.S. Department of Health and Human Services: www.smokefree.gov [place] Lung Association: www.freedomfromsmoking.org [place] Heart Association: www.heart.org Where to find more information Centers for Disease Control and Prevention: www.cdc.gov World Health Organization: www.who.int Summary Smoking tobacco is very bad for your health. Tobacco smoke contains many toxic chemicals that can damage every part of the body. Smoking is difficult to quit because a chemical in tobacco, called nicotine, causes addiction or dependence. There are immediate and long-term health benefits of quitting smoking. A combination of two or more quit methods may increase the success of quitting. This information is not intended to replace advice given to you by your health care provider. Make sure you discuss any questions you have with your health care provider. Document Revised: 09/11/2022 Document Reviewed: 09/11/2022 [employer] Patient Education 2022 [employer] Follow Up Care 01/27/2024 07:25:50 With:Charles LUNDBERG, SQUAD LEADER-GENERAL CLERK, Zuly Andersen Address: [address] [place] [phone] When:Within 6 Month(s) Comments:chronic care [facility] Feliberto 06-05-2024 Telephone encounter Note* Telephone Encounter - Brittny Gan RN - 02/26/2024 3:01 PM EDT I spoke with Rola yesterday in [place] to discuss process for Entyvio ordering Advised pens will be sent to [facility] for insurance approval Plan for loading dose of infusions on week 0, 2 and 6 will also be sent to insurance Once approval comes back for both infusion and pen we can schedule the infusions at [facility] Advised patient I will be in contact with her on the status Brittny Gan RN [facility]06-05-2024 History of Present illness Narrative* Marija Cerda - 02/26/2024 1:18 PM EDT [facility] received prescription(s) for Entyvio from Dr. Lee Ann Humphries's office. Benefits investigation was conducted, indicating that a prior authorization is required by patient's insurance plan with [employer] . Encounter will be updated once prior authorization has been submitted by [facility]. Marija Cerda [facility] P: [phone] F:[phone] * Aniya Alvarez - 02/26/2024 1:18 PM EDT Prior authorization for Entyvio was initiated and is pending review. Plan Name: [employer] Plan Agent: RHIANNON REECE Nelson: [id number] Timeline: Standard Aniya Alvarez CPhT [facility], Inflammatory P: [phone] F: [phone] documented in [facility]24 NoteHNO ID: [id number] Author: ?, ?, ? Service: ? Author Type: ? Type: Progress Notes Filed: 02/26/2024 14:41 Note Text: Prior authorization for Entyvio was initiated and is pending review. Plan Name: Ginna Gallito Agent: RHIANNON REECE Nelson: [id number] Timeline: [place] [facility] P: [phone] F: [phone] NoteHNO ID: [id number] Author: ZAIRA CAMPBELL [facility] Service: ? Author Type: Pharmacist Type: Progress Notes Filed: 04/21/2024 10:21 Note Text: [facility] received prescription(s) for Entyvio pens from Dr. Lee Ann Humphries's office. Benefits investigation was conducted, indicating that a prior authorization is required. PA was approved with details listed below: Plan Name: [employer]inna CHEVY reference number: [id number] Approval Dates: 02/26/24 through 05/24/24 Pt's copay is $0. Shipment has been arranged, and pt will receive medication(s) on 04/23/24 and is aware that her first SQ dose is due on 04/29/24. A full drug interaction report was conducted. I reviewed with patient appropriate dose and dosing frequency, administration directions (Inject 108 mg (1 pen) subcutaneously every other week.), potential side effects, ability to self-administer and proper storage and handling requirements. S/he expressed understanding of the information we provided today, and received our contact information for the pharmacy if s/he had any other questions. PAST MEDICAL HISTORY Diagnosis Date Crohn's disease (HCC) History of transfusion 2017 anemia noted prior to surgery Migraine with aura Perianal abscess Seasonal allergies ALLERGIES Allergen Reactions Hydromorphone Itching Problem List Noted Noted By Resolved Resolved By Generalized abdominal pain 01/20/2024 Angel Jaquez PA-C No 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) 01/18/2024 Brigitte Tran PA-C No Ileostomy in place (HCC) 01/18/2024 Brigitte Tran PA-C No ABLA (acute blood loss anemia) 10/25/2023 Anand Melendez APRN.GENERAL CLERK No Overview Addendum 10/27/2023 8:56 AM by Kale Prado MD Hgb 10.9 > QBL 602 cc > 8.5 - Asymptomatic - VSS - Lost IV access , declined new IV placement for IV iron Assessment/Plan: - asymptomatic acute blood loss anemia from operative blood loss - Continue PNV and PO iron BID care following delivery 10/24/2023 Kale Prado MD No Maternal Crohn's disease (HCC) 10/24/2023 Kale Prado MD No Ileostomy prolapse (HCC) 10/24/2023 Kale Prado MD No Maternal iron deficiency anemia complicating , third trimester 09/13/2023 Mera Nicole, RN No Impaired intestinal absorption 09/13/2023 Mera Nicole, RN No Crohn's disease of large intestine without complication (HCC) 08/21/2023 Shin Corcoran, PALisaC No Crohn's disease of small and large intestines with complication (HCC) 08/20/2023 Angel Jaquez PA-C No Anxiety and depression 07/04/2023 Nae Costa MD No Overview Signed 10/27/2023 8:58 AM by Kale Prado MD Well Controlled previously on Zoloft 50mg daily PO - not currently on medication Denies any current s/s, SI/HI, and reports bonding well with baby Plan: - educated on depression/anxiety, when to contact provider vs seek care in ED Obesity, Class I, BMI 30-34.9 05/01/2023 Jordin Garcia MD No Imaging of gastrointestinal tract abnormal 02/04/2023 Rut Lagos MD No Overview Signed 02/04/2023 8:17 AM by Rut Lagos MD MRE and MR pelvis IMPRESSION: Possible mild inflammatory change of the terminal ileum, distal to the ileostomy. Otherwise, no active inflammatory small bowel Crohn's disease. Probable mild inflammatory changes of the mid to distal descending colon. Persistent active perianal disease, similar to prior CT although improved from prior MRI. No perianal abscess. Crohn's disease of colon with complication (HCC) 01/17/2023 Jody Whittington, No Overview Signed 02/04/2023 9:14 AM by Rut Lagos MD -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 She was treated with PDN, ADA from [id number], lost response due to development of AB, UST from [id number] lost insurance and was not on medications. 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 No medications since then. Recent discharge from hospital 01/08-01/21 for abdominal pain, bleeding and stool per rectum. Underwent MRE and MRI pelvis, ileoscopy and colonoscopy which shows active inflammation involving small and large intestine. +inflammation in the cele anal fistula tract. Started on IVCS and now on PO prednisone taper History of creation of ostomy (HCC) 01/22/2021 Bandar Becerra MD No Obesity, Class II, BMI 35-39.9 08/26/2020 Bushra Moy MD No Hypokalemia 09/12/2018 James Garcias PA-C No Malnutrition of mild degree (HCC) 09/11/2018 Corinna Rasmussen (Rd), RD No Perineal abscess 09/09/2018 James Garcias PA-C No Overview Signed 09/11/2018 12:09 PM by James Garcias (Pa) Added automatically from request for surgery [id number] Rubella non-immune status, delivered, current hospitalization 10/25/2023 Anand Melendez, SQUAD LEADER.GENERAL CLERK 10/27/2023 Kale Prado MD Overview Signed 10/27/2023 8:54 AM by Kale Prado MD VIS provided by SHAHBAZ melvin (more content not included)...[facility] Note HNO ID: [id number] Author: ZAIRA CAMPBELL RPh Service: ? Author Type: Pharmacist Type: Progress Notes Filed: 03/10/2024 09:08 Note Text: Entyvio infusion appointments are scheduled as follows: week 0, 2 and 6 ( week of 03/09, 03/23, 04/20) Pen to start week 14 (06/15/24) [facility] will follow her chart and schedule first Entyvio pen shipment accordingly once IV doses are received. Rx has been profiled at [facility] (confirmed $0 copay). Amina Campbell PharmD Clinical Pharmacist, Biolog[employer] [facility] ; Pool: P [facility] Pool #: [id number]24 NoteHNO ID: [id number] Author: ZAIRA CAMPBELL, [facility] Service: ? Author Type: Pharmacist Type: Progress Notes Filed: 04/01/2024 10:30 Note Text: Received message from Maddie Sevilla RN, stating that therapy plan has changed and patient should now start SQ Entyvio at week 6 rather than week 14. IV dose #2 was given on 04/01/24, so first SQ dose is due on 04/29/24. Patient will be contacted at the end of March to set up first SQ shipment. Amina Campbell PharmD Clinical Pharmacist, Biolog[employer] [facility] ; Pool: P [facility] Pool #: [id number] [facility] System06-05-2024 NoteHNO ID: [id number] Author: ?, ?, ? Service: ? Author Type: ? Type: Progress Notes Filed: 03/02/2024 15:13 Note Text: Entyvio PA was approved with details listed below. Plan Name: [facility] Plan Agent/Nelson: CMM / [id number] Phone/ / - PA reference number: [id number] Approval Dates: 02/26/24 through 05/24/24 Prescriptions will now be processed through [facility] for determination of next steps. Corinna Pfeiffer CPhT, Coal Weigher, Inflammatory/Allergy [facility] P: [phone] F: [phone]24 NoteHNO ID: [id number] Author: ?, ?, ? Service: ? Author Type: ? Type: Progress Notes Filed: 02/26/2024 13:23 Note Text: [facility] received prescription(s) for Entyvio from Dr. Lee Ann Humphries's office. Benefits investigation was conducted, indicating that a prior authorization is required by patient's insurance plan with [employer] . Encounter will be updated once prior authorization has been submitted by [facility]. Marija Cerda Elenita [facility] P: [phone] F:[phone] Instructions* Patient Instructions* Lee Ann Humphries DO - 02/25/2024 4:08 PM EDT Thank you for coming in today. I have refilled your prednisone at 20 mg daily. Please continue thisuntil I see you back and you are stable on your Entyvio. We will start with Entyvio infusions and submit this to your insurance company. We will also try to get the Entyvio pens approved for injection at home. I will see you back in the office in a few months after these are improved. If your sympto ms worsen, please let me know so we can try to keep you out of the hospital. Please call with any questions or concerns. [facility] in this encounter[facility] History and physical note * Lee Ann Humphries DO - 02/25/2024 3:20 PM EDT FOLLOW UP OFFICE VISIT REASON FOR VISIT: follow-up HPI: Rola Aguilar is a 28 year old female who presents for fistulizing Crohn's disease. She was recently seen in the hospital with an exacerbation. She is status post loop ileostomy with seton placement for perianal fistula. She underwent colonoscopy and ileoscopy in the hospital with results below.She was discharged on a prednisone taper with plan for Biologics as an outpatient. She previously developed antibodies to Humira. She was also previously on Stelara, but this was stopped after she lost insurance coverage. Most recently she was planned to start on Remicade along with Imuran, but during this process she became and never followed through with this. She had an uncomplicated p regnancy and delivery with a healthy now 4-month-old boy. Her ileostomy has been complicated with prolapse with occasional obstruction. Since discharge she notes that she initially feels well with prednisone. However, symptoms have since worsened with taper below 20 mg. She notes an increased amount of rectal output along with bleeding as well as loose stools. Her ileostomy output has decreased. She also notes an increased amount of abdominal pain. This has not responded to Tylenol. She has tried to avoid going back to the emergency department as well as avoid hospital admission. She endorsesan increase in nocturnal symptoms as well. She is open to starting more long-term therapy. Past Clinical Work-up: 01/20/2024 Hospital D/C Note: Assessment and Plan: 28-year-old woman with severe Crohn's disease presenting with recurring abdominal pain, cramping and diarrhea. Patient has been treated for flares twice already in the last 2 months with steroid tapers. Symptoms flare recur when she is tapered off the steroids. Status post colonoscopy and although would like to keep her the patient is demanding for discharge now. The patient wishes to go home now so we will prescribe a long steroid taper. Discussed with GI service. Patient go on a month-long steroid taper to follow-up with them. Colonoscopy results as above Discharge time is 40 minutes Crohn's disease Abdominal pain Diarrhea Anemia -Chronic, normocytic -Suspected due to chronic disease and iron deficiency -Patient received IV iron during her - Patient was taking oral supplement at home Hypokalemia -Due to GI losses - Corrected -Supplement and follow labs Anxiety and depression -Worsened with acute illness -Patient discontinued sertraline after her as she did not feel it was helping -She will follow-up as outpatient to discuss alternative treatment Ileostomy status -Due to Crohn's disease -Patient is in need of revision due to hernia Resolved Problems: * No resolved hospital problems. * 01/20/2024 Ileoscopy: Impression: - Crohn's disease with ileitis. Inflammation was found. This was mild in severity. Biopsied 01/20/2024 Colonoscopy: Impression: - Perianal fistula and anal canal stenosis found on perianal exam. - Stricture in the sigmoid colon. - Crohn's disease. Inflammation was found from the anus to the sigmoid colon. This was moderate in severity, unchanged compared to previous examinations. Biopsied FINAL DIAGNOSIS A. Small bowel, ileum, biopsy: - Chronic minimally inflamed enteritis; negative for pyloric gland metaplasia or dysplasia. B. Colon, rectosigmoid, biopsy: - Chronic mildly inflamed colitis; negative for dysplasia 01/18/2024 CT A/P: IMPRESSION: Diffuse colonic wall thickening and pericolonic stranding changes consistent with colitis. Partially imaged seton in the perianal region Latest Ref Rng 08/19/2023 01/18/2024 WBC 3.70 - 11.00 k/uL 5.21 6.62 RBC 3.90 - 5.20 m/uL 3.58 (L) 4.19 Hemoglobin 11.5 - 15.5 g/dL 10.3 (L) 11.3 (L) Hematocrit 36.0 - 46.0 % 31.3 (L) 35.4 (L) MCV 80.0 - 100.0 fL 87.4 84.5 MCH 26.0 - 34.0 pg 28.8 27.0 MCHC 30.5 - 36.0 g/dL 32.9 31.9 RDW-CV 11.5 - 15.0 % 13.9 13.9 Platelet Count 150 - 400 k/uL 231 353 MPV 9.0 - 12.7 fL 11.3 9.8 Latest Ref Rng 08/19/2023 01/18/2024 Protein, Total 6.3 - 8.0 g/dL 7.4 7.2 Albumin 3.9 - 4.9 g/dL 3.8 (L) 3.5 (L) Calcium 8.5 - 10.2 mg/dL 8.9 8.8 Bilirubin, Total 0.2 - 1.3 mg/dL 0.3 0.3 Alkaline Phosphatase 34 - 123 U/L 98 103 AST 13 - 35 U/L 17 11 (L) ALT 7 - 38 U/L 14 7 Glucose 74 - 99 mg/dL 74 116 (H) BUN 7 - 21 mg/dL 6 (L) 7 Creatinine 0.58 - 0.96 mg/dL 0.52 (L) 0.72 Sodium 136 - 144 mmol/L 135 (L) 135 (L) Potassium 3.7 - 5.1 mmol/L 3.6 (L) 3.4 (L) Chloride 97 - 105 mmol/L 103 98 CO2 22 - 30 mmol/L 18 (L) 24 Anion Gap 9 - 18 mmol/L 14 13 eGFR >=60 mL/min/1.73m 130 117 Latest Ref Rng 01/18/2024 TB Nil <=8.00 IU/mL 0.02 TB1 Ag minus Nil <0.35 IU/mL 0.00 TB2 Ag minus Nil <0.35 IU/mL 0.00 TB Result Negative Mitogen minus Nil >=0.50 IU/mL 5.93 TB Interpretation Infection with M. tuberculosis complex is unlikely. If latent tuberculosis infection is highly suspected, a negative result does not rule out the infection. Specimens from immunocompromised patients and those <5 years of age may show false negative results. In case of a contactinvestigation, please repeat 8-12 weeks after a known exposure. Iron 41 - 186 ug/dL 21 (L) TIBC 232 - 386 ug/dL 218 (L) Transferrin Saturation 20.0 - 55.0 % 9.6 (L) Hep B Surface Ab, Qual Negative Hep B Surf Ab Quant mIU/mL <8.00 Lipase 16 - 61 U/L 23 Ferritin 14.7 - 205.1 ng/mL 315.9 (H) CRP <0.9 mg/dL 14.8 (H) WSR 0 - 20 mm/hr 57 (H) TPMT Activity 24.0 - 44.0 U/mL 29.7 Hep B Surface Ag Negative Negative Hep A Ab, IgM Negative Negative Hep B Core Ab, IgM Negative Negative Hep C Antibody IA Negative Negative Latest Ref Rng 01/18/2024 Shigella spp./Enteroinvasive E.coli DNA Not Detected Not detected Campylobacter jejuni/coli DNA Not Detected Not detected Shiga toxin-producing gene(s) Not Detected Not detected Salmonella spp. DNA Not Detected Not detected CALPROTECTIN, FECAL QUANTITATIVE <50 ug/g 114 (H) CALPROTECTIN, FECAL INTERP Normal Borderline elevated. Re-evaluation in 4-6 weeks is recommended ifclinically indicated. ! C. difficile PCR Negative for C. difficile toxin by PCR Negative for C. difficile toxin by PCR ALLERGIES Allergen Reactions Hydromorphone Itching PAST MEDICAL HISTORY Diagnosis Date Crohn's disease (HCC) History of transfusion 2016 anemia noted prior to surgery Migraine with aura Perianal abscess Seasonal allergies PAST SURGICAL HISTORY Procedure Laterality Date COLONOSCOPY GEN ANES 10/20/2020 EXCISION PILONIDAL CYST/SINUS SIMPLE 06/2016 PAST SURGICAL HISTORY OF 09/10/2018 Laparoscopic creation of diverting loop ileostomy, laparoscopic TAP block, examination under anesthesia with flexible sigmoidoscopy with biopsies, incision and drainage of complex perianal and supralevator abscesses with drain and seton placement. PAST SURGICAL HISTORY OF 08/26/2018 Exam under anesthesia, flexible sigmoidoscopy, incision and drainage of deep postanal space abscess, seton and drain placement. PAST SURGICAL HISTORY OF iliostomy FAMILY HISTORY Problem Relation Age of Onset Hodgkin Lymphoma Mother NON hodgkin Colon Cancer Other Social History Tobacco Use Smoking status: Former Packs/day: .5 Types: Cigarettes Smokeless tobacco: Never Tobacco comments: 3 per day Vaping Use Vaping Use: Never used Substance Use Topics Alcohol use: Not Currently Comment: 1 per week Drug use: No No current outpatient medications on file. No current facility-administered medications for this visit. I have confirmed and edited as necessary, the PFSH obtained by others. REVIEW OF SYSTEMS CONSTITUTIONAL: No weight loss or fevers. She endorses malaise HEENT: Negative for frequent or significant headaches, No changes in hearing or vision, no nose bleeds or other nasal problems RESPIRATORY: Negative for cough, hemoptysis, wheezing, COPD, dyspnea or shortness of breath CARDIOVASCULAR: Negative for chest pain or palpitations GI: See HPI : No history of dysuria, frequency or incontinence, No difficulty urinating or hematuria MUSCULOSKELETAL: Denies joint pain or injury INTEGUMENTARY/SKIN: No rash or lesions HEMATOLOGY/LYMPHOLOGY: Negative for prolonged bleeding, bruising easily or swollen nodes ENDOCRINE: Negative for cold or heat intolerance, polyuria, polydipsia and goiter NEURO: No encephalopathy PSYCH: No recent changes in mood or depression Physical Exam: BP 120/89 (BP Site: Right Arm, BP Position: Sitting, BP Cuff Size: Large Adult) Pulse 119 Temp 36.8 C (98.2 F) (Temporal) Ht 167.2 cm (5' 5.83 ) Wt 83 kg (183 lb 1.5 oz) LMP 01/30/2023 (Exact Date) SpO2 95% BMI 29.71 kg/m Gen: AAOx3, NAD Head: normocephalic, atraumatic Skin: No jaundice Eyes: No scleral icterus Neck: supple, no mass appreciated Heart: RRR, no murmurs Lungs: CTAB Abd: soft, moderate tenderness on palpation with some voluntary guarding, most prominent in the right and left lower quadrants, nondistended, bowel sounds are positive, no mass appreciated, ileostomyis present in the central abdomen with significant prolapse Ext: no LE edema, Moves all ext Neuro: no asterixis Psych: mood and insight appropriate ASSESSMENT Problem List Items Addressed This Visit Gastrointestinal Ileostomy prolapse (HCC) 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) - Primary Relevant Medications vedolizumab (ENTYVIO PEN) 108 mg/0.68 mL pen Other Visit Diagnoses Crohn's colitis, unspecified complication (HCC) PLAN 28-year-old female presents for hospital follow-up of small and large bowel Crohn's disease complicated by stricture as well as perianal fistula. We will restart her prednisone 20 mg daily. We also discussed several biologic options, although the data for fistula is somewhat limited since she has failed Humira with antibodies. She would like to avoid Remicade if possible. Because of this, we willstart Entyvio and she would like to try to get the pen option approved. [facility] [place] [facility] I will see her back after she has started the loading infusions and we will continue her prednisone until she is stable at that time. She was encouraged to call with any questions or concerns. [facility]06-04[facility]24 History and physical note* Lee Ann Humphries DO - 02/25/2024 3:20 PM EDT FOLLOW UP OFFICE VISIT REASON FOR VISIT: follow-up HPI: Rola Aguilar is a 28 year old female who presents for fistulizing Crohn's disease. She was recently seen in the hospital with an exacerbation. She is status post loop ileostomy with seton placement for perianal fistula. She underwent colonoscopy and ileoscopy in the hospital with results below.She was discharged on a prednisone taper with plan for Biologics as an outpatient. She previously developed antibodies to Humira. She was also previously on Stelara, but this was stopped after she lost insurance coverage. Most recently she was planned to start on Remicade along with Imuran, but during this process she became and never followed through with this. She had an uncomplicated p regnancy and delivery with a healthy now 4-month-old boy. Her ileostomy has been complicated with prolapse with occasional obstruction. Since discharge she notes that she initially feels well with prednisone. However, symptoms have since worsened with taper below 20 mg. She notes an increased amount of rectal output along with bleeding as well as loose stools. Her ileostomy output has decreased. She also notes an increased amount of abdominal pain. This has not responded to Tylenol. She has tried to avoid going back to the emergency department as well as avoid hospital admission. She endorsesan increase in nocturnal symptoms as well. She is open to starting more long-term therapy. Past Clinical Work-up: 01/20/2024 Hospital D/C Note: Assessment and Plan: 28-year-old woman with severe Crohn's disease presenting with recurring abdominal pain, cramping and diarrhea. Patient has been treated for flares twice already in the last 2 months with steroid tapers. Symptoms flare recur when she is tapered off the steroids. Status post colonoscopy and although would like to keep her the patient is demanding for discharge now. The patient wishes to go home now so we will prescribe a long steroid taper. Discussed with GI service. Patient go on a month-long steroid taper to follow-up with them. Colonoscopy results as above Discharge time is 40 minutes Crohn's disease Abdominal pain Diarrhea Anemia -Chronic, normocytic -Suspected due to chronic disease and iron deficiency -Patient received IV iron during her - Patient was taking oral supplement at home Hypokalemia -Due to GI losses - Corrected -Supplement and follow labs Anxiety and depression -Worsened with acute illness -Patient discontinued sertraline after her as she did not feel it was helping -She will follow-up as outpatient to discuss alternative treatment Ileostomy status -Due to Crohn's disease -Patient is in need of revision due to hernia Resolved Problems: * No resolved hospital problems. * 01/20/2024 Ileoscopy: Impression: - Crohn's disease with ileitis. Inflammation was found. This was mild in severity. Biopsied 01/20/2024 Colonoscopy: Impression: - Perianal fistula and anal canal stenosis found on perianal exam. - Stricture in the sigmoid colon. - Crohn's disease. Inflammation was found from the anus to the sigmoid colon. This was moderate in severity, unchanged compared to previous examinations. Biopsied FINAL DIAGNOSIS A. Small bowel, ileum, biopsy: - Chronic minimally inflamed enteritis; negative for pyloric gland metaplasia or dysplasia. B. Colon, rectosigmoid, biopsy: - Chronic mildly inflamed colitis; negative for dysplasia 01/18/2024 CT A/P: IMPRESSION: Diffuse colonic wall thickening and pericolonic stranding changes consistent with colitis. Partially imaged seton in the perianal region Latest Ref Rng 08/19/2023 01/18/2024 WBC 3.70 - 11.00 k/uL 5.21 6.62 RBC 3.90 - 5.20 m/uL 3.58 (L) 4.19 Hemoglobin 11.5 - 15.5 g/dL 10.3 (L) 11.3 (L) Hematocrit 36.0 - 46.0 % 31.3 (L) 35.4 (L) MCV 80.0 - 100.0 fL 87.4 84.5 MCH 26.0 - 34.0 pg 28.8 27.0 MCHC 30.5 - 36.0 g/dL 32.9 31.9 RDW-CV 11.5 - 15.0 % 13.9 13.9 Platelet Count 150 - 400 k/uL 231 353 MPV 9.0 - 12.7 fL 11.3 9.8 Latest Ref Rng 08/19/2023 01/18/2024 Protein, Total 6.3 - 8.0 g/dL 7.4 7.2 Albumin 3.9 - 4.9 g/dL 3.8 (L) 3.5 (L) Calcium 8.5 - 10.2 mg/dL 8.9 8.8 Bilirubin, Total 0.2 - 1.3 mg/dL 0.3 0.3 Alkaline Phosphatase 34 - 123 U/L 98 103 AST 13 - 35 U/L 17 11 (L) ALT 7 - 38 U/L 14 7 Glucose 74 - 99 mg/dL 74 116 (H) BUN 7 - 21 mg/dL 6 (L) 7 Creatinine 0.58 - 0.96 mg/dL 0.52 (L) 0.72 Sodium 136 - 144 mmol/L 135 (L) 135 (L) Potassium 3.7 - 5.1 mmol/L 3.6 (L) 3.4 (L) Chloride 97 - 105 mmol/L 103 98 CO2 22 - 30 mmol/L 18 (L) 24 Anion Gap 9 - 18 mmol/L 14 13 eGFR >=60 mL/min/1.73m 130 117 Latest Ref Rng 01/18/2024 TB Nil <=8.00 IU/mL 0.02 TB1 Ag minus Nil <0.35 IU/mL 0.00 TB2 Ag minus Nil <0.35 IU/mL 0.00 TB Result Negative Mitogen minus Nil >=0.50 IU/mL 5.93 TB Interpretation Infection with M. tuberculosis complex is unlikely. If latent tuberculosis infection is highly suspected, a negative result does not rule out the infection. Specimens from immunocompromised patients and those <5 years of age may show false negative results. In case of a contactinvestigation, please repeat 8-12 weeks after a known exposure. Iron 41 - 186 ug/dL 21 (L) TIBC 232 - 386 ug/dL 218 (L) Transferrin Saturation 20.0 - 55.0 % 9.6 (L) Hep B Surface Ab, Qual Negative Hep B Surf Ab Quant mIU/mL <8.00 Lipase 16 - 61 U/L 23 Ferritin 14.7 - 205.1 ng/mL 315.9 (H) CRP <0.9 mg/dL 14.8 (H) WSR 0 - 20 mm/hr 57 (H) TPMT Activity 24.0 - 44.0 U/mL 29.7 Hep B Surface Ag Negative Negative Hep A Ab, IgM Negative Negative Hep B Core Ab, IgM Negative Negative Hep C Antibody IA Negative Negative Latest Ref Rng 01/18/2024 Shigella spp./Enteroinvasive E.coli DNA Not Detected Not detected Campylobacter jejuni/coli DNA Not Detected Not detected Shiga toxin-producing gene(s) Not Detected Not detected Salmonella spp. DNA Not Detected Not detected CALPROTECTIN, FECAL QUANTITATIVE <50 ug/g 114 (H) CALPROTECTIN, FECAL INTERP Normal Borderline elevated. Re-evaluation in 4-6 weeks is recommended ifclinically indicated. ! C. difficile PCR Negative for C. difficile toxin by PCR Negative for C. difficile toxin by PCR ALLERGIES Allergen Reactions Hydromorphone Itching PAST MEDICAL HISTORY Diagnosis Date Crohn's disease (HCC) History of transfusion 2016 anemia noted prior to surgery Migraine with aura Perianal abscess Seasonal allergies PAST SURGICAL HISTORY Procedure Laterality Date COLONOSCOPY GEN ANES 10/20/2020 EXCISION PILONIDAL CYST/SINUS SIMPLE 06/2016 PAST SURGICAL HISTORY OF 09/10/2018 Laparoscopic creation of diverting loop ileostomy, laparoscopic TAP block, examination under anesthesia with flexible sigmoidoscopy with biopsies, incision and drainage of complex perianal and supralevator abscesses with drain and seton placement. PAST SURGICAL HISTORY OF 08/26/2018 Exam under anesthesia, flexible sigmoidoscopy, incision and drainage of deep postanal space abscess, seton and drain placement. PAST SURGICAL HISTORY OF iliostomy FAMILY HISTORY Problem Relation Age of Onset Hodgkin Lymphoma Mother NON hodgkin Colon Cancer Other Social History Tobacco Use Smoking status: Former Packs/day: .5 Types: Cigarettes Smokeless tobacco: Never Tobacco comments: 3 per day Vaping Use Vaping Use: Never used Substance Use Topics Alcohol use: Not Currently Comment: 1 per week Drug use: No No current outpatient medications on file. No current facility-administered medications for this visit. I have confirmed and edited as necessary, the PFSH obtained by others. REVIEW OF SYSTEMS CONSTITUTIONAL: No weight loss or fevers. She endorses malaise HEENT: Negative for frequent or significant headaches, No changes in hearing or vision, no nose bleeds or other nasal problems RESPIRATORY: Negative for cough, hemoptysis, wheezing, COPD, dyspnea or shortness of breath CARDIOVASCULAR: Negative for chest pain or palpitations GI: See HPI : No history of dysuria, frequency or incontinence, No difficulty urinating or hematuria MUSCULOSKELETAL: Denies joint pain or injury INTEGUMENTARY/SKIN: No rash or lesions HEMATOLOGY/LYMPHOLOGY: Negative for prolonged bleeding, bruising easily or swollen nodes ENDOCRINE: Negative for cold or heat intolerance, polyuria, polydipsia and goiter NEURO: No encephalopathy PSYCH: No recent changes in mood or depression Physical Exam: BP 120/89 (BP Site: Right Arm, BP Position: Sitting, BP Cuff Size: Large Adult) Pulse 119 Temp 36.8 C (98.2 F) (Temporal) Ht 167.2 cm (5' 5.83 ) Wt 83 kg (183 lb 1.5 oz) LMP 01/30/2023 (Exact Date) SpO2 95% BMI 29.71 kg/m Gen: AAOx3, NAD Head: normocephalic, atraumatic Skin: No jaundice Eyes: No scleral icterus Neck: supple, no mass appreciated Heart: RRR, no murmurs Lungs: CTAB Abd: soft, moderate tenderness on palpation with some voluntary guarding, most prominent in the right and left lower quadrants, nondistended, bowel sounds are positive, no mass appreciated, ileostomyis present in the central abdomen with significant prolapse Ext: no LE edema, Moves all ext Neuro: no asterixis Psych: mood and insight appropriate ASSESSMENT Problem List Items Addressed This Visit Gastrointestinal Ileostomy prolapse (HCC) 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) - Primary Relevant Medications vedolizumab (ENTYVIO PEN) 108 mg/0.68 mL pen Other Visit Diagnoses Crohn's colitis, unspecified complication (HCC) PLAN 28-year-old female presents for hospital follow-up of small and large bowel Crohn's disease complicated by stricture as well as perianal fistula. We will restart her prednisone 20 mg daily. We also discussed several biologic options, although the data for fistula is somewhat limited since she has failed Humira with antibodies. She would like to avoid Remicade if possible. Because of this, we willstart Entyvio and she would like to try to get the pen option approved. [facility] [place] [facility]. I will see her back after she has started the loading infusions and we will continue her prednisone until she is stable at that time. She was encouraged to call with any questions or concerns. [facility] Telephone encounter Note * Telephone Encounter - Bill Fernandez - 01/23/2024 11:14 AM EDT Pt is scheduled in the February 24 3:20pm slot held for her per message below. Thank you, [facility] Miscellaneous Notes* Telephone Encounter - Bill Fernandez - 01/23/2024 11:14 AM EDT Pt is scheduled in the February 24 3:20pm slot held for her per message below. Thank you, * Telephone Encounter - Nessa Douglass - 01/21/2024 2:55 PM EDT LVM offering appt of February 24. * Telephone Encounter - Brittny Gan, RN - 01/21/2024 2:06 PM EDT Scheduling team: Please offer patient the following appt 02/24 at 3:20 (slot is on hold) with Doctor Diana Please call patient with appt details Thank you Brittny Gan, RN * Telephone Encounter - Lee Ann Humphries DO - 01/20/2024 5:50 PM EDT Please try to arrange follow-up in 4 weeks so we can discuss biologic therapy. * Telephone Encounter - Jenn Santiago APRN.CNP - 01/20/2024 4:36 PM EDT Just to provide update-pt expressed desire to follow up with Dr. Humphries specifically.Jenn Parry * Telephone Encounter - Angel Jaquez PA-C - 01/20/2024 1:50 PM EDT Hi! The patient needs to follow-up with any GI that is available for Crohn's colitis with diverting loop ileostomy. Please arrange with first available provider. Thanks! Angel Jaquez PA-C Gastroenterology and Hepatology [facility] Telephone encounter Note * Telephone Encounter - Nessa Douglass - 01/21/2024 2:55 PM EDT LVM offering appt of February 24. [facility]04-30-20[facility] Telephone encounter Note* Telephone Encounter - Brittny Gan RN - 01/21/2024 2:06 PM EDT Scheduling team: Please offer patient the following appt 02/24 at 3:20 (slot is on hold) with Doctor Diana Please call patient with appt details Thank you Brittny Gan RN [facility]04-29-[facility] Telephone encounter Note* Telephone Encounter - Lee Ann Humphries DO - 01/20/2024 5:50 PM EDT Please try to arrange follow-up in 4 weeks so we can discuss biologic therapy. [facility] Work Phone: [phone]) 709-592004-29-2024 Telephone encounter Note* Telephone Encounter - Jenn Santiago APRN.CNP - 01/20/2024 4:36 PM EDT Just to provide update-pt expressed desire to follow up with Dr. Humphries specifically.Jenn Parry [facility] Work Phone: 1(148) 231-818504-29-2024 NoteHNO ID: [id number] Author: JOHN GARRETT RN Service: Care Management Author Type: Registered Nurse Type: Care Mgt Initial Assessment Filed: 01/20/2024 16:01 Note Text: CARE MANAGEMENT: ASSESSMENT AND DISCHARGE PLAN SERVICE DATE: January 20, 2024 SERVICE TIME: 3:57 PM PCP: Kale Rendon MD Primary Contact: Extended Emergency Contact Information Primary Emergency Contact: Rashi Deluca Relation: Mother Secondary Emergency Contact: Artem Marroquin [facility] Mobile Relation: Significant other Admission Status: Inpatient Insurance Provider: [employer] Discharge Planning requested by: Attending Provider Potential Transition Plans Home Advance Directives Current Advance Directive: None Compensation And Benefits Manager Attempted to Assist with AD Completion: Yes Action: Patient Unwilling Current Living Arrangements and Support Lives with: Spouse/significant other, Children (boyfriend) Type of Residence: Private Residence (House) Support: Spouse/significant other, Children How do you manage to accomplish the following: Independent: Ambulation;Bathe/Shower;Meals/Meal Prep;Dress;Going to the bathroom;Medication Management;Transportation to appointments/community Current Services/Equipment Current Post-Acute Service(s): DME Current DME Type: Ostomy supplies Current Post-Acute Service(s) Provider: Jas Discharge Planning Patient Goal(s): General wellness, Less pain, Be able to go home [place] Choice Explained: [place] Given: No Reason Not Given: No placements necessary Are you interested in bedside delivery of your medications? Yes Discharge Planning Participant(s): Patient Patient/Family Comments: Caregiver Assessment: Caregiver is ready, willing and able to meet the patient's needs as recommended by the inter-professional team: No Caregiver needed Transport at Discharge: Transportation Arrangements: Car Needs Prior to Discharge: Needs Prior to Discharge: Other: See Comment (medical clearance) Post-Acute Discharge Plan: Patient is a 28 year old female admitted for Chron's disease. Patient has a hx of Chron's. Patient lives with her boyfriend and two children. Patient is independent with all ADLs. Patient orders her own ostomy supplies through [employer]. Denies ETOH or drug abuse. Pt denies any safety or social concerns. Patient reports finances are challenging, but able to meet basic needs. Boyfriend to transport at d/c. Anticipate d/c home with self care. Advance Care Planning HCPOA paperwok on file within [facility] and verified to be current as of date/time of this note: No Legal Next of Kin Hierarchy per [place] Revised Code: Parents - Rashi Deluca John Garrett RN January 20, 2024 SIGNATURE: John Garrett RN PATIENT NAME: Rola Aguilar DATE: January 20, 2024 TIME: 3:57 PM CONTACT #: [phone] Telephone encounter Note* Telephone Encounter - Angel Jaquez PA-C - 01/20/2024 1:50 PM EDT Hi! The patient needs to follow-up with any GI that is available for Crohn's colitis with diverting loop ileostomy. Please arrange with first available provider. Thanks! Angel Jaquez PA-C Gastroenterology and Hepatology [facility]04-29-2024 NoteHNO ID: [id number] Author: ANGEL JAQUEZ PA-C Service: Gastroenterology Author Type: Physician Global Program Manager Type: Plan of Care Filed: 01/20/2024 13:50 Note Text: Brief GI Plan of Care S/P Ileoscopy on 01/20/[address] Humphries Impression: - Crohn's disease with ileitis. Inflammation was found. This was mild in severity. Biopsied. Recommendation: - Return patient to hospital chew for ongoing care. - Advance diet as tolerated. - Continue present medications. - Perform a colonoscopy today. S/P Colonoscopy on 01/20/[address] 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 - Stricture in the sigmoid colon. - Crohn's disease. Inflammation was found from the anus to the sigmoid colon. This was moderate in severity, unchanged compared to previous examinations. Biopsied. Recommendation: - Return patient to hospital chew for ongoing care. - Advance diet as tolerated. - Continue present medications. - Await pathology results. - Repeat colonoscopy for surveillance based on pathology results. - Patient has a contact number available for emergencies. The signs and symptoms of potential delayed complications were discussed with the patient. Return to normal activities tomorrow. Written discharge instructions were provided to the patient. Plan: (Some elements copied from Dawn Cabello's note dated January 18, 2024, which have been reviewed updated where appropriate. All reflect current medical decision making from today January 20, 2024.) Ms. Aguilar is a 28 year old female with Crohn's disease, perianal abscess, ileostomy (2018- Dr. Tai) who presented with abdominal pain and diarrhea. GI is being consulted for crohn's flare. #Crohn's colitis #Diverting ileostomy 2018 #Seton drain 2018 #Generalized abdominal pain -Await pathology results s/p ileoscopy/colonoscopy. -C. Diff and enteric negative. Fecal heriberto in process. -Pre-biologic workup: TPMT genotype/phenotype in process. TB blood screen negative. Acute hepatitis panel negative. Hepatitis B surface Ag and Ab negative. -CRP 14.8. Sed rate 57. -Continue IV solumedrol 20 mg every 8 hours. -Continue supportive care with anti-emetics and pain control as needed per primary team. -Strict IANDOs for consistency, frequency and color of stools. -Continue to monitor CBC and overt signs of bleeding. Transfuse when Hgb is less than 7. -Follows with Dr. Thakkar and [facility] for anticipation of revision/reversal of ostomy 3 months after on 10/24/2023. Addendum 1349: sent to arrange outpatient GI FU for IBD. Angel Jaquez PA-C Gastroenterology and HepatologyWhitinsville [id number] NoteHNO ID: [id number] Author: JAZMIN GUSMAN RN Service: Nursing Author Type: Registered Nurse Type: Nursing Progress Note Filed: 01/19/2024 22:50 Note Text: Other: 2100 Patient refusing ordered soap suds enema at this time.[facility] 01-19-2024 NoteHNO ID: [id number] Author: MASHA CEDILLO MD Service: General Internal Medicine Author Type: Physician Type: Progress Notes Filed: 01/19/2024 11:41 Note Text: INPATIENT PROGRESS NOTE SERVICE DATE: 01/19/2024 SERVICE TIME: 11:21 AM PRIMARY SERVICE: Internal Medicine Subjective CHIEF COMPLAINT: Abdominal pain INTERVAL HPI: Ms. Aguilar states her pain is slightly better. She states the stool output has decreased. She has been anxious. Current Facility-Administered Medications Medication Dose Route Frequency enoxaparin 40 mg injection (LOVENOX) 40 mg SUBCUTANEOUS q 24 HR NaCl 0.9% iv flush bag 20 mL INTRAVENOUS PRN aluminum-magnesium hydroxide-simethicone 200-200-20 mg/5 mL 30 mL 30 mL ORAL DAILY PRN acetaminophen 650 mg tab(s) (TYLENOL) 650 mg ORAL q 6 H PRN trimethobenzamide 200 mg injection (TIGAN) 200 mg INTRAMUSCULAR q 6 H PRN melatonin 6 mg tab(s) 6 mg ORAL AT BEDTIME PRN lactated ringers iv infusion 100 mL/hr INTRAVENOUS CONTINUOUS methylPREDNISolone sod succinate(PF) 20 mg injection (SOLU-Medrol) 20 mg INTRAVENOUS q 8 H polyethylene glycol 3350 238 g oral powder 238 g ORAL ONCE hydrOXYzine HCl 25-50 mg tab(s) (ATARAX) 25-50 mg ORAL q 6 H PRN oxyCODONE IR 5 mg tab(s) (ROXICODONE) 5 mg ORAL q 4 H PRN Objective PHYSICAL EXAM: BP 103/59 Pulse 59 Temp (Src) 97.5 (Oral) Resp 16 Ht 5' 6 (1.68m) Wt 183 lb 6.8 oz (83.2kg) SpO2 98% LMP 01/30/2023 BMI 29.62 kg/(m2). O2 Therapy: Room Air Physical Exam Performed GENERAL: Alert, cooperative, anxious LUNGS: Normal respiratory pattern effort, no wheezes CARDIAC: Regular rate, regular rhythm ABDOMEN: Hypoactive bowel sounds, diffuse tenderness EXTREMITIES: No edema DATA: Diagnostic tests reviewed for today's visit: Most recent labs Assessment/Plan 28-year-old woman with severe Crohn's disease presenting with recurring abdominal pain, cramping and diarrhea. Patient has been treated for flares twice already in the last 2 months with steroid tapers. Symptoms flare recur when she is tapered off the steroids. Crohn's disease Abdominal pain Diarrhea -IV fluid hydration -Pain regimen -IV steroids ordered. Dosing changed to 20 mg every 8 hours per GI -Stool studies ordered. C. difficile is negative. Enteric pathogens is also negative -Colonoscopy scheduled for tomorrow -GI consultation appreciated Anemia -Chronic, normocytic -Suspected due to chronic disease and iron deficiency -Patient received IV iron during her - Patient was taking oral supplement at home Hypokalemia -Due to GI losses - Corrected -Supplement and follow labs Anxiety and depression -Worsened with acute illness -Patient discontinued sertraline after her as she did not feel it was helping - Start buspirone for anxiety -She will follow-up as outpatient to discuss alternative treatment Ileostomy status -Due to Crohn's disease -Patient is in need of revision due to hernia Resolved Problems: * No resolved hospital problems. * Medication and Non-Pharmacologic VTE Prophylaxis/Anticoagulants Anticoagulant AND Antiplatelet Medications (From admission, onward) Start Dose Route Frequency Last Action Ordered Stop 01/18/24 0600 enoxaparin 40 mg injection (LOVENOX) (Medical Risk Categories) 40 mg SUBCUTANEOUS EVERY 24 HOURS Given, 01/18 0553 01/18/24 0537 -- 01/18/24 0545 activity - mobilize patient (md,mo) VTE Prophylaxis: VTE prophylaxis appropriate regular color SIGNATURE: Masha Cedillo MD PATIENT NAME: Rloa Aguilar DATE: January 19, 2024 TIME: 11:21 [facility]04-27-2024 NoteBorderline elevated. Re-evaluation in 4-6 weeks is recommended if clinically indicated.[facility] HospitalComment on above:Order Comment: Specimen Type: STOOL SPECIMEN Ordering Facility: [facility] Address: [address] [place], [place] [address]Result Comment: On February 12, 2023, [facility] implemented a new fecal calprotectinmethod, the [employer] Liaison Calprotectin assay. For assistance with interpretation of results in patients undergoing serial monitoring, contact Client Services at [phone] or [phone] to discuss options, preferably within 7 days of issuing this report. Interpretation: <50.0 ug/g: Normal 50.0 ug/g - 120.0 ug/g: Borderline elevated. Re-evaluation in 4-6 weeks is recommended if clinically indicated. >120.0 ug/g: ElevatedPerformed By: #### [id number], [id number] #### [facility] CLIA [id number] [address] [place], [place] 5415604-27-2024 NoteHNO ID: [id number] Author: BRIGITTE TRAN PA-C Service: General Internal Medicine Author Type: Physician Global Program Manager Type: Plan of Care Filed: 01/18/2024 05:59 Note Text: ADMISSION PLAN OF CARE NOTE SERVICE DATE: 01/18/2024 SERVICE TIME: 0500 CHIEF COMPLAINT: abdominal pain, diarrhea HPI: Presents from home with worsening abdominal pain, cramping, increased output from ileostomy x 2 days. Hx/o Crohns and not currently on medication/treatment plan. Has been on Humira and Stellara previously. S/p C section 10/24/23. Has seen [facility] at [facility] but not since 03/05/2023 and most recently seen by Dr. Crystal PARKER, 10/18/23 to discuss ileostomy closure. Was to return 3 months after to discuss further. Patient admits she has not attempted to re-establish with GI post delivery. She has not resumed her Zoloft post delivery. Afebrile, HDS K+ 3.4 HGB 11.3 with baseline 8.5-[address] Abd/Pelvis IMPRESSION: Diffuse colonic wall thickening and pericolonic stranding changes consistent with colitis. Partially imaged seton in the perianal region. In the ED, patient received Solumedrol 125 mg IV, morphine 4 mg IV, Zofran 4 mg IV. Stool and C diff studies ordered/pending. CODE STATUS discussed with patient. Patient wishes to be: FULL CODE Reviewed past medical history, family history, social history, medications and allergies. FOCUSED PHYSICAL EXAM: Physical Exam Vitals reviewed. Constitutional: General: She is not in acute distress. HENT: Head: Normocephalic. Eyes: Extraocular Movements: Extraocular movements intact. Cardiovascular: Rate and Rhythm: Normal rate and regular rhythm. Pulses: Normal pulses. Pulmonary: Effort: Pulmonary effort is normal. Breath sounds: Normal breath sounds. Abdominal: General: Bowel sounds are normal. Palpations: Abdomen is soft. Tenderness: There is abdominal tenderness (bilateral lower abdomen). Comments: Ileostomy in place with white exudate and mild (pink) erythema at inferior aspect. Elicits pain when moving ileostomy bag or palpating inferior aspect. Musculoskeletal: Right lower leg: No edema. Left lower leg: No edema. Skin: General: Skin is warm and dry. Capillary Refill: Capillary refill takes less than 2 seconds. Neurological: General: No focal deficit present. Mental Status: She is alert and oriented to person, place, and time. Psychiatric: Behavior: Behavior normal. Thought Content: Thought content normal. BP 125/82 Pulse (!) 92 Temp 37 ?C (98.6 ?F) Resp 18 Ht 167.6 cm (5' 6 ) Wt 81.6 kg (180 lb) LMP 01/30/2023 (Exact Date) SpO2 98% BMI 29.05 kg/m? Body mass index is 29.05 kg/m?. ASSESSMENT/PLAN * Crohn's colitis, without complications (HCC)- (present on admission) Presents from home with worsening abdominal pain, cramping, increased output from ileostomy x 2 days. Hx/o Crohns and not currently on medication/treatment plan. Has been on Humira and Stellara previously. S/p C section 10/24/23. Has seen [facility] at [facility] but not since 03/05/2023 and most recently seen by Dr. Crystal PARKER, 10/18/23 to discuss ileostomy closure. Was to return 3 months after to discuss further. Patient admits she has not attempted to re-establish with GI post delivery. She has not resumed her Zoloft post delivery. Afebrile, HDS K+ 3.4 HGB 11.3 with baseline 8.5-[address] Abd/Pelvis IMPRESSION: Diffuse colonic wall thickening and pericolonic stranding changes consistent with colitis. Partially imaged seton in the perianal region. In the ED, patient received Solumedrol 125 mg IV, morphine 4 mg IV, Zofran 4 mg IV. Stool and C diff studies ordered/pending. On exam, soft abdomen, tender to palpation over lower abdomen. Ileostomy in place with exudate and mild erythema at inferior aspect. PLAN: -Consult GI, appreciate recs -Telemetry -Vitals per unit protocol -Follow Stool studies/ C diff PCR results -Supportive care for symptoms -Defer to primary day team /GI for further recs Ileostomy in place (HCC)- (present on admission) See above Plan of care discussed with: Provider, RN, Patient. ED RN unavailable for bedside. POC card given for patient to reference. HANDP to follow by Attending. I spent a total of 60 minutes on the date of the service which included preparing to see the patient, [id number] patient care, completing clinical documentation, obtaining and/or reviewing separately obtained history, performing a medically appropriate examination, counseling and educating the patient/family/caregiver, ordering medications, tests, or procedures, communicating with other HCPs (not separately reported), independently interpreting results (not separately reported), communicating results to the patient/family/caregiver, and care coordination (not separately reported). SIGNATURE: Brigitte Tran PA-C PATIENT NAME: Rola Aguilar DATE: December (more content not included)...[facility] [id number] Telephone encounter Note* Telephone Encounter - Ted Brito RN - 01/17/2024 8:[address] Lagos: Received this message to renew her therapy plan. She is not seen by any of us since . I am not sure if she is even on treatment anymore. Can you please touch base with her Called patient no anwer left message to call office. Will follow up as needed. Ted Rodriguez RN [facility]04-26-2024 Miscellaneous Notes* Telephone Encounter - Ted Brito RN - 01/17/2024 8:[address] Lagos: Received this message to renew her therapy plan. She is not seen by any of us since . I am not sure if she is even on treatment anymore. Can you please touch base with her Called patient no anwer left message to call office. Will follow up as needed. Ted Rodriguez RN documented in this encounterAvita [facility] System03-30-2024 Hospital Discharge instructions Patient Education 12/21/2023 21:17:15 Crohn's Disease Crohn's Disease Crohn's disease is a long-lasting (chronic) disease that affects the gastrointestinal (GI) tract. Crohn's disease often causes irritation and inflammation in the small intestine and the beginning of the large intestine, but it can affect any part of the GI tract. Crohn's disease is part of a group o f illnesses that are known as inflammatory bowel disease (IBD). Crohn's disease may start slowly and get worse over time. Symptoms may come and go. They may also go away for months or even years at a time (remission). What are the causes? The exact cause of this condition is not known. It may involve a response that causes your body's disease-fighting system (immune system) to attack healthy cells and tissues (autoimmune response). Bacteria, genes, and your environment may also play a role. What increases the risk? The following factors may make you more likely to develop this condition: Having a family member who has Crohn's disease, another IBD, or an autoimmune condition. Using products that contain nicotine or tobacco, such as cigarettes and e-cigarettes. Being in your 20s. Having [place] ancestry. What are the signs or symptoms? The main symptoms of this condition involve your GI tract. These include: Diarrhea. Pain or cramping in the abdomen commonly felt in the lower right side of the abdomen. Frequent watery or bloody stools. Constipation. This may mean having: ?Fewer bowel movements in a week than normal. ?Difficulty having a bowel movement. ?Stools that are dry, hard, or larger than normal. Rectal bleeding or pain. An urgent need to have a bowel movement. The feeling that you are not finished having a bowel movement. Other symptoms may include: Unexplained weight loss. Tiredness (fatigue). Fever. Nausea or appetite loss. Joint pain. Vision changes. Red bumps or sores on the skin. Sores inside the mouth. How is this diagnosed? This condition may be diagnosed based on: Your symptoms and medical history. A physical exam. Tests, which may include: ?Blood tests. ?Stool sample tests. ?Imaging tests, such as X-rays and CT scans. ?Tests to examine the inside of your intestines using a long, flexible tube that has a light and a camera on the end (colonoscopy). ?A procedure to remove tissue samples from inside your bowel for testing (biopsy). You may need to work with a health care provider who specializes in diseases of the digestive tract(clinical radiologist). How is this treated? There is no cure for this condition, and it affects each person differently. Treatment can help youmanage your symptoms. Your treatment may include: Medicines. These may be used by themselves or with other treatments (combination therapy). You may be given medicines that help to: ?Reduce inflammation. ?Control your immune system activity. ?Fight infections. ?Relieve cramps and prevent diarrhea. ?Control your pain. Surgery. You may need surgery if: ?Medicines and other treatments are not working anymore. ?You develop complications from severe Crohn's disease. ?A section of your intestine becomes so damaged that it needs to be removed. Lifestyle changes: ?Maintaining eating or drinking restrictions. ?Reducing or eliminating use of alcohol or nicotine. Follow these instructions at home: Medicines Take [id number] and prescription medicines only as told by your health care provider. If you were prescribed an antibiotic, take it as told by your health care provider. Do not stop taking the antibiotic even if you start to feel better. Avoid taking ibuprofen or other NSAID medicines if possible. These can make Crohn's disease worse. Eating and drinking Talk with your health care provider or a registered dietitian about what diet is best for you. Drink enough fluid to keep your urine pale yellow. If you are taking steroids to reduce inflammation, get plenty of calcium in your diet to help keep your bones healthy. You may also consider taking a calcium supplement with vitamin D. Keep a food diary to identify foods that make your symptoms better or worse, and avoid foods that cause symptoms. Follow instructions from your health care provider about eating or drinking restrictions if you have worsening symptoms (flare-up). If you drink alcohol: ?Limit how much you have to: ?0 1 drink a day for women who are not . ?0 2 drinks a day for men. ?Know how much alcohol is in a drink. In the [place] one drink equals one 12 oz bottle of beer (355 mL), one 5 oz glass of wine (148 mL), or one 1 oz glass of hard liquor (44 mL). General instructions Make sure you get all the vaccines that your health care provider recommends, especially pneumonia (pneumococcal) and flu (influenza) vaccines. Do not use any products that contain nicotine or tobacco. These products include cigarettes, chewing tobacco, and vaping devices, such as e-cigarettes. If you need help quitting, ask your health careprovider. Exercise every day, or as often as told by your health care provider. Keep all follow-up visits. This is important. Contact a health care provider if: You have diarrhea, cramps in your abdomen, and other GI problems that are present almost all the time. Your symptoms do not improve with treatment, your symptoms get worse, or you develop new symptoms. You cannot pass stools. You continue to lose weight. You develop a rash or sores on your skin. You develop eye problems. You have a fever. Get help right away if: You have bloody diarrhea. You have severe pain in your abdomen. These symptoms may be an emergency. Get help right away. Call 911. Do not wait to see if the symptoms will go away. Do not drive yourself to the hospital. Summary Crohn's disease affects each person differently. The cause of this condition is not known, but it may involve a response that causes your body's immune system to attack healthy cells and tissues. There are multiple treatment options that can help you manage the condition. Talk with your health care provider or a registered dietitian about what diet is best for you. Make sure you get all the vaccines that your health care provider recommends, especially pneumonia (pneumococcal) and flu (influenza) vaccines. Get help right away if you have bloody diarrhea or severe pain in your abdomen. This information is not intended to replace advice given to you by your health care provider. Make sure you discuss any questions you have with your health care provider. Document Revised: 03/15/2022 Document Reviewed: 03/15/2022 [employer] Patient Education 2022 [employer]. Follow Up Care 12/21/2023 14:44:13 With:Ja Bhardwaj Address: [address] [facility], [address] [address]- [phone] Business (1) When:12/24/2023 21:04:53 Comments:You can use the pain medication as prescribed as needed for pain, you can use the nausea medicationas needed for nausea and vomiting. Take the steroids as prescribed to completed the course. Follow-up with your primary care doctor in addition to GI doctor for further evaluation management. Please r eturn to ED for any new or worsening symptoms. With:Kale RENDON Address: [address] [place] [address]- Business (1) When:12/24/2023 21:04:49 [facility]03-30-2024 Evaluation + Plan noteExtracted from: Title:ED Note Author:Vanessa Rosa PA-C Date :12/21/23 Ordered: morphine, 4 mg = 1 mL, Injection, IV Push, Once, Stop date 12/21/23 17:09:00 EDT, STAT, Start date 12/21/23 17:09:00 EDT, 12/21/23 17:09:00 EDT ondansetron, 4 mg = 2 mL, Injection, IV Push, Once, Stop date 12/21/23 17:09:00 EDT, STAT, Start date 12/21/23 17:09:00 EDT, 12/21/23 17:09:00 EDT Addendum by Wendy Graham DO on December 21, 2023 23:56:[address] imaging shows findings consistent with diffuse inflammatory bowel disease, colitis. Patient is now continuing to complain of pain. Is given Dilaudid. Patient states now that her pain has been controlled she is comfortable with discharge home. Patient started on prednisone in addition to pain medication and nausea medication. She is to follow-up with her primary care doctor in the next 2 to 3 days for further evaluation management. She is to return to the ED for any new or worsening symptoms. Alfred Graahm DO [facility]03-17-2024 Hospital Discharge instructions Patient Education 12/08/2023 00:09:55 Crohn's Disease Crohn's Disease Crohn's disease is a long-lasting (chronic) disease that affects the gastrointestinal (GI) tract. Crohn's disease often causes irritation and inflammation in the small intestine and the beginning of the large intestine, but it can affect any part of the GI tract. Crohn's disease is part of a group o f illnesses that are known as inflammatory bowel disease (IBD). Crohn's disease may start slowly and get worse over time. Symptoms may come and go. They may also go away for months or even years at a time (remission). What are the causes? The exact cause of this condition is not known. It may involve a response that causes your body's disease-fighting system (immune system) to attack healthy cells and tissues (autoimmune response). Bacteria, genes, and your environment may also play a role. What increases the risk? The following factors may make you more likely to develop this condition: Having a family member who has Crohn's disease, another IBD, or an autoimmune condition. Using products that contain nicotine or tobacco, such as cigarettes and e-cigarettes. Being in your 20s. Having Eastern ancestry. What are the signs or symptoms? The main symptoms of this condition involve your GI tract. These include: Diarrhea. Pain or cramping in the abdomen commonly felt in the lower right side of the abdomen. Frequent watery or bloody stools. Constipation. This may mean having: ?Fewer bowel movements in a week than normal. ?Difficulty having a bowel movement. ?Stools that are dry, hard, or larger than normal. Rectal bleeding or pain. An urgent need to have a bowel movement. The feeling that you are not finished having a bowel movement. Other symptoms may include: Unexplained weight loss. Tiredness (fatigue). Fever. Nausea or appetite loss. Joint pain. Vision changes. Red bumps or sores on the skin. Sores inside the mouth. How is this diagnosed? This condition may be diagnosed based on: Your symptoms and medical history. A physical exam. Tests, which may include: ?Blood tests. ?Stool sample tests. ?Imaging tests, such as X-rays and CT scans. ?Tests to examine the inside of your intestines using a long, flexible tube that has a light and a camera on the end (colonoscopy). ?A procedure to remove tissue samples from inside your bowel for testing (biopsy). You may need to work with a health care provider who specializes in diseases of the digestive tract(clinical radiologist). How is this treated? There is no cure for this condition, and it affects each person differently. Treatment can help youmanage your symptoms. Your treatment may include: Medicines. These may be used by themselves or with other treatments (combination therapy). You may be given medicines that help to: ?Reduce inflammation. ?Control your immune system activity. ?Fight infections. ?Relieve cramps and prevent diarrhea. ?Control your pain. Surgery. You may need surgery if: ?Medicines and other treatments are not working anymore. ?You develop complications from severe Crohn's disease. ?A section of your intestine becomes so damaged that it needs to be removed. Lifestyle changes: ?Maintaining eating or drinking restrictions. ?Reducing or eliminating use of alcohol or nicotine. Follow these instructions at home: Medicines Take gsvq-dqy-dbxwanw and prescription medicines only as told by your health care provider. If you were prescribed an antibiotic, take it as told by your health care provider. Do not stop taking the antibiotic even if you start to feel better. Avoid taking ibuprofen or other NSAID medicines if possible. These can make Crohn's disease worse. Eating and drinking Talk with your health care provider or a registered dietitian about what diet is best for you. Drink enough fluid to keep your urine pale yellow. If you are taking steroids to reduce inflammation, get plenty of calcium in your diet to help keep your bones healthy. You may also consider taking a calcium supplement with vitamin D. Keep a food diary to identify foods that make your symptoms better or worse, and avoid foods that cause symptoms. Follow instructions from your health care provider about eating or drinking restrictions if you have worsening symptoms (flare-up). If you drink alcohol: ?Limit how much you have to: ?0 1 drink a day for women who are not . ?0 2 drinks a day for men. ?Know how much alcohol is in a drink. In the [place] one drink equals one 12 oz bottle of beer (355 mL), one 5 oz glass of wine (148 mL), or one 1 oz glass of hard liquor (44 mL). General instructions Make sure you get all the vaccines that your health care provider recommends, especially pneumonia (pneumococcal) and flu (influenza) vaccines. Do not use any products that contain nicotine or tobacco. These products include cigarettes, chewing tobacco, and vaping devices, such as e-cigarettes. If you need help quitting, ask your health careprovider. Exercise every day, or as often as told by your health care provider. Keep all follow-up visits. This is important. Contact a health care provider if: You have diarrhea, cramps in your abdomen, and other GI problems that are present almost all the time. Your symptoms do not improve with treatment, your symptoms get worse, or you develop new symptoms. You cannot pass stools. You continue to lose weight. You develop a rash or sores on your skin. You develop eye problems. You have a fever. Get help right away if: You have bloody diarrhea. You have severe pain in your abdomen. These symptoms may be an emergency. Get help right away. Call 911. Do not wait to see if the symptoms will go away. Do not drive yourself to the hospital. Summary Crohn's disease affects each person differently. The cause of this condition is not known, but it may involve a response that causes your body's immune system to attack healthy cells and tissues. There are multiple treatment options that can help you manage the condition. Talk with your health care provider or a registered dietitian about what diet is best for you. Make sure you get all the vaccines that your health care provider recommends, especially pneumonia (pneumococcal) and flu (influenza) vaccines. Get help right away if you have bloody diarrhea or severe pain in your abdomen. This information is not intended to replace advice given to you by your health care provider. Make sure you discuss any questions you have with your health care provider. Document Revised: 03/15/2022 Document Reviewed: 03/15/2022 [employer] Patient Education 2022 [employer]. Follow Up Care 12/07/2023 18:42:40 With:Kale RENDON Address: [address] [place] [phone] Business (1) When:Within 3 Day(s) [facility]03-16-2024 Evaluation + Plan noteExtracted from: Title:ED Note Author:Alex Sanchez DO Date :12/07/23 Exacerbation of Crohn's dise ase (K50.90: Crohn's disease, unspecified, without complications) Hypokalemia (E87.6: Hypokalemia) Orders: morphine, 4 mg = 1 mL, Injection, IV Push, Once, Stop date 12/07/23 19:23:00 EDT, STAT, Start date 12/07/23 19:23:00 EDT, 12/07/23 19:23:00 EDT ondansetron, 4 mg = 2 mL, Injection, IV Push, Once, Stop date 12/07/23 19:23:00 EDT, STAT, Start date 12/07/23 19:23:00 EDT, 12/07/23 19:23:00 EDT potassium chloride, 40 mEq = 2 tab(s), Tab-ER, Oral, Once, Stop date 12/07/23 23:28:00 EDT, STAT, Start date 12/07/23 23:28:00 EDT, 12/07/23 23:28:00 EDT predniSONE, 40 mg = 2 tab(s), Tab, Oral, Once, Stop date 12/07/23 23:28:00 EDT, STAT, Start date 12/07/23 23:28:00 EDT, 12/07/23 23:28:00 EDT predniSONE, See Instructions, 6 tabs for 2 days,5 tabs for 2 days,4 tabs for 2 days,3 tabs for 2 days,2 tabs for 2 days,1 tab for 2 days, # 42 tab(s), Refills(s) 0, Pharmacy: [facility]/pharmacy #[id number], 167, cm, 12/07/23 18:59:00 EDT, Height/Length Dosing, 84.9, kg, 11/21... Sodium Chloride 0.9% intravenous solution, 1,000 mL, Soln-IV, IV, Once, Stop date 12/07/23 18:55:00 EDT, STAT, Start date 12/07/23 18:55:00 EDT, Infuse over 61, minute(s) Basic Metabolic Panel Beta hCG Qual CBC w/ Auto Diff CT Abdomen/Pelvis w/ Contrast eGFR Hepatic Function Panel Lipase Level Saline Lock Insert UA With Cult Reflex [facility]03-11-2024 NoteHNO ID: [id number] Author: PATRICIA RAMIREZ APRN.CNM Service: ? Author Type: Fabrication Mig Welder Type: Progress Notes Filed: 12/02/2023 16:47 Note Text: EARLY VISIT Rola gAuilar is a 28 year old for a 2 week virtual virtual visit using Audio Only Visit. It required patient-provider interaction for the medical decision making as documented below. I have communicated my name and active licensure. The patient's identity and physical location were verified at the time of this visit. Either the patient or their legal motor vehicle representative has been informed of the risks and benefits of -- and alternatives to -- treatment through a remote evaluation and consents to proceed with the evaluation remotely. Delivery Summary: Tank Marroquin [[id number]] Delivery Information: Delivery Date: 10/24/23 Delivery type: , Low Transverse Delivering Clinician: Kale Prado MD : Gender: Male Weight (grams): 3637 g One Minute : 8 Five Minute : 9 ROS: General: Denies any fever or chills Hypertension Screening: Headache? No. Visual Changes? No Epigastric Pain? No Increased Swelling? No Taking any BP medications at home? No If applicable, monitoring BP at home? (If Yes, include results) NA Mood: normal Depression: denies symptoms of depression. OB Depression and Anxiety Screening- This Encounter (since 12/01/2023) None Feeding: Breast feeding problems: None Bladder: No dysuria, gross hematuria, urinary frequency, urinary urgency, or incontinence Bowel symptoms: Negative for abdominal discomfort, blood in stools or black stools and change in bowel habits Abdomen: She reports no incisional redness, tenderness, erythema Bleeding: spotting Bottom and Perineum: No issues Sleep: no sleep concerns, feels rested [place] since delivery: Not resumed Emotional support: Yes Exercise: N/A Other issues: None PAST MEDICAL HISTORY Diagnosis Date Crohn's disease (HCC) History of transfusion 2017 anemia noted prior to surgery Migraine with aura Perianal abscess Seasonal allergies PAST SURGICAL HISTORY Procedure Laterality Date COLONOSCOPY GEN ANES 10/20/2020 EXCISION PILONIDAL CYST/SINUS SIMPLE 06/2016 PAST SURGICAL HISTORY OF 09/10/2018 Laparoscopic creation of diverting loop ileostomy, laparoscopic TAP block, examination under anesthesia with flexible sigmoidoscopy with biopsies, incision and drainage of complex perianal and supralevator abscesses with drain and seton placement. PAST SURGICAL HISTORY OF 08/26/2018 Exam under anesthesia, flexible sigmoidoscopy, incision and drainage of deep postanal space abscess, seton and drain placement. PAST SURGICAL HISTORY OF iliostomy FAMILY HISTORY Problem Relation Age of Onset Hodgkin Lymphoma Mother NON hodgkin Colon Cancer Other Social History Tobacco Use Smoking status: Former Packs/day: .5 Types: Cigarettes Smokeless tobacco: Never Tobacco comments: 3 per day Vaping Use Vaping Use: Never used Substance Use Topics Alcohol use: Not Currently Comment: 1 per week Drug use: No ALLERGIES Allergen Reactions Hydromorphone Itching Current Outpatient Medications Medication Sig ferrous sulfate 325 mg (65 mg iron) tablet Take 1 tablet by mouth every other day. sertraline (ZOLOFT) 50 mg tablet Take 1 tablet by mouth once daily. VIT 65-VCXS-UCHVR-DHA ORAL Take by mouth. SUMAtriptan (IMITREX) 25 mg tablet Take 1 tablet (25 mg) by mouth two times a day as needed for migraine headache (see administration instructions). at onset of headache. May repeat after 2 hours. (Patient not taking: Reported on 11/15/2023) No current facility-administered medications for this visit. PHYSICAL EXAMINATION: General: pleasant,female in no apparent distress, AANDO x 3. Incision: No incisional redness, swelling, or drainage ASSESSMENT AND PLAN: 28 year old status post CS with normal course. Contraception plan: none. Reinforced 6-week pelvic rest. Encouraged condom usage should patient deviate. Education: resources provided - see MA/RN note Encouraged to call with any further concerns. Follow up: Follow-up with provider for 6 week visit and as needed Patricia Ramirez APRN.[facility]03-11-2024 History of Present illness Narrative* Patricia Ramirez APRN.[facility] - 12/02/2023 4:45 PM EDT EARLY VISIT Rola Aguilar is a 28 year old for a 2 week virtual virtual visit using AudioOnly Visit. It required patient-provider interaction for the medical decision making as documented below. I have communicated my name and active licensure. The patient's identity and physical location wereverified at the time of this visit. Either the patient or their legal motor vehicle representative has been informed of the risks and benefits of -- and alternatives to -- treatment through a remote evaluation andconsents to proceed with the evaluation remotely. Delivery Summary: aTnk Marroquin [[id number]] Delivery Information: Delivery Date: 10/24/23 Delivery type: , Low Transverse Delivering Clinician: Kale Prado MD Mathews: Gender: Male Weight (grams): 3637 g One Minute : 8 Five Minute : 9 ROS: General: Denies any fever or chills Hypertension Screening: Headache? No. Visual Changes? No Epigastric Pain? No Increased Swelling? No Taking any BP medications at home? No If applicable, monitoring BP at home? (If Yes, include results) NA Mood: normal Depression: denies symptoms of depression. OB Depression and Anxiety Screening- This Encounter (since 12/01/2023) None Feeding: Breast feeding problems: None Bladder: No dysuria, gross hematuria, urinary frequency, urinary urgency, or incontinence Bowel symptoms: Negative for abdominal discomfort, blood in stools or black stools and change in bowel habits Abdomen: She reports no incisional redness, tenderness, erythema Bleeding: spotting Bottom and Perineum: No issues Sleep: no sleep concerns, feels rested [place] since delivery: Not resumed Emotional support: Yes Exercise: N/A Other issues: None PAST MEDICAL HISTORY Diagnosis Date Crohn's disease (HCC) History of transfusion 2017 anemia noted prior to surgery Migraine with aura Perianal abscess Seasonal allergies PAST SURGICAL HISTORY Procedure Laterality Date COLONOSCOPY GEN ANES 10/20/2020 EXCISION PILONIDAL CYST/SINUS SIMPLE 06/2016 PAST SURGICAL HISTORY OF 09/10/2018 Laparoscopic creation of diverting loop ileostomy, laparoscopic TAP block, examination under anesthesia with flexible sigmoidoscopy with biopsies, incision and drainage of complex perianal and supralevator abscesses with drain and seton placement. PAST SURGICAL HISTORY OF 08/26/2018 Exam under anesthesia, flexible sigmoidoscopy, incision and drainage of deep postanal space abscess, seton and drain placement. PAST SURGICAL HISTORY OF iliostomy FAMILY HISTORY Problem Relation Age of Onset Hodgkin Lymphoma Mother NON hodgkin Colon Cancer Other Social History Tobacco Use Smoking status: Former Packs/day: .5 Types: Cigarettes Smokeless tobacco: Never Tobacco comments: 3 per day Vaping Use Vaping Use: Never used Substance Use Topics Alcohol use: Not Currently Comment: 1 per week Drug use: No ALLERGIES Allergen Reactions Hydromorphone Itching Current Outpatient Medications Medication Sig ferrous sulfate 325 mg (65 mg iron) tablet Take 1 tablet by mouth every other day. sertraline (ZOLOFT) 50 mg tablet Take 1 tablet by mouth once daily. VIT 77-OKTZ-FMERZ-DHA ORAL Take by mouth. SUMAtriptan (IMITREX) 25 mg tablet Take 1 tablet (25 mg) by mouth two times a day as needed for migraine headache (see administration instructions). at onset of headache. May repeat after 2 hours. (Patient not taking: Reported on 11/15/2023) No current facility-administered medications for this visit. PHYSICAL EXAMINATION: General: pleasant,female in no apparent distress, A&O x 3. Incision: No incisional redness, swelling, or drainage ASSESSMENT AND PLAN: 28 year old status post CS with normal course. Contraception plan: none. Reinforced 6-week pelvic rest. Encouraged condom usage should patient deviate. Education: resources provided - see MA/RN note Encouraged to call with any further concerns. Follow up: Follow-up with provider for 6 week visit and as needed Patricia Ramirez APRN.CNM [facility]* Jordin Glass RN - 11/15/2023 2:24 PM EST 2 week virtual visit. Pt has been identified by name and . [place] score assessment completed - see flow sheet. Pt reports abdominal pain, increase BM in ileostomy and rectally. Cody Ramirez CNM notified. Jordin Glass RN documented in this [facility]24 Instructions* Patient Instructions* Jordin Glass RN - 11/15/2023 2:20 PM EST Depression and Anxiety The first weeks of caring for a new baby are a lot of work. During this time, your feelings and moods may not be what you expected. This should help you understand when feelings are normal, and when you should call your health care provider. What are the baby blues? As many as 3 in every 4 women will have short periods of feeling sad, crying or feeling cranky or restless during the first few weeks after . This may be normal. Babies are fed every few hours, and you will not get a full night of sleep in those first weeks. Also, your body and hormones go through many changes after you give . Women who have baby blues often say they feel like crying but don't know why. Baby blues usually happen in the first or second week ( after you give ) and last less than a week. If your sadness lasts 2 weeks or more, call your health care provider. What is depression? About one in every 5 women will develop depression during the first few months after giving . Women who have depression may have some of these symptoms: -Feeling guilty -Not able to enjoy your baby and feeling like you are not bonding with your baby -Not able to sleep, even when the baby us sleeping -Sleeping too much and feeling too tired to get out of bed -Feeling overwhelmed and not able to do what you need to during the day -Not able to concentrate -Don't feel like eating -Feeling like you are not normal or not yourself anymore -Not able to make decisions -Feeling like a failure as a mother or that you cannot take care of your baby -Feeling lonely or all alone -Thinking your baby might be better off without you If you have any of these symptoms , tell someone you trust and call your health care provider rightaway! What is anxiety? About one in every 10 women will develop anxiety during the first few months after giving . Women who have anxiety may have some of these symptoms: -Constant worry -Racing thoughts -Unable to sit still -Sleeping too much or too little -Don't feel like eating -Feeling that something bad is going to happen -Physical symptoms like dizziness, hot flashes and nausea If you have any of these symptoms, tell someone you trust and call your health care provider right away! Which symptoms of depression and anxiety are dangerous? Sometimes a women with depression and / or anxiety will have thoughts of harming herselfor her baby. If you have thoughts of wanting to hurt yourself or your baby, tell someone you trust and call your health care provider immediately. You can also call 911 or one of the emergency hotlines listed below. Who is likely to have depression or anxiety? depression or anxiety can happen to any women. depression and anxiety sometimes happen together. Women with a personal or family history of anxiety or depression and women who have had stressful life events are more likely to have depression and /or anxiety. If you have any of these risks, talk with your health care provider before you give . Planning a head can help prevent problems after . If you have a history of depression or anxiety or someone in your family had one of these problems, it is important to plan ahead for how you can get help when you need it. If you can, see a counselor or mental health care provider before you give . If a mental health care provider is not available, you can work with your care provider to make a plan. You may not end up needed the extra help, but it is good to have someone available in case you need them. How can a health care provider help treat depression or anxiety? If you have depression or anxiety, it is important to get help. Treatments for these problems include therapy (counseling) and medication. Your health care provider can help you decide what treatment is best for you. How can I help myself treat depression or anxiety? Women who are depressed or anxious after having a baby may feel guilty and ashamed. You are not alone, and this is not your fault. It is important for your family and friends to understand that depression and/or anxiety can happen to anyone. Here are some things you can do to help yourself: -Support groups or group activities help some women. Other women who have had depressionand/or anxiety understand what you are going through. -Sleep is very important for health and healing. Most women with depression and/ or anxiety can have hard time sleeping. Try different things to help you sleep, such as warm bath before bedtime, massage, relaxation techniques, or medication. -if you are , you may need help with night feeding in order to get some uninterrupted sleep. -Exercise produces hormones that help you feel better. Even a small amount of activity helps. Family and friends can help with short walks or take care of your baby while you exercise. -Don't drink alcohol because it can make depression worse. -Try to do something that made you happy before you had depression and / or anxiety, such as listening to music, doing something with a friend, or practicing your morris or denominational. For more information: support international www..net Support help line:949.430.7834 Emergency hotlines (available all the time, 15/04) National crisis text line: test HOME to 540308 about any type of crisis National suicide prevention hotline: [phone] Flesch- Danielle Grade level :8.1 Approved August 2018. This handout replaces depression published in Volume 58, number6, August 2013 [employer] Www.[email or web address] [facility] Mommy and Me virtual support group 11:30am-1pm Support for mothers with new babies and toddlers Free offering -Join other moms in this causal virtual group setting. -Join with your little one(s) and talk about life with your new baby. -receive support from other new mothers and an experienced staff development educator. For more information or to register: -Giselle childbirth education or call [phone] The Fourth Trimester for women Dealing with the unexpected things that happen to your body in the months after childbirth is worthtalking about. Do you have incontinence, back pain or feelings of instability in your core after childbirth? Join a [facility] pelvic health physical therapist to learn best steps to recover after giving . Additional topics that will be discussed include returning to an exercise regimen, addressing incontinence issues and pelvic floor muscle function, and perineal scar management and evaluating core muscle health. Virtual class Dates and times 12pm: Nov 06 March 04 Jul 01 5pm: December 31 May 06 September 02 [place] online visit [email or web address] documented in this encounterAv[facility] System[facility]24 NoteHNO ID: [id number] Author: ELEONORA ENRIQUE DO Service: Obstetrics Author Type: Physician Type: Progress Notes Filed: 10/26/2023 10:54 Note Text: OBSTETRICS PROGRESS NOTE SERVICE DATE: October 26, 2023 SERVICE TIME: 9:15 AM ASSESSMENT: 28 year old female who is Postoperative Day #2 status post , Low Transverse delivery with male . POD#2 from Primary C/S with BS for suspicious testing. Known Crohn's with ileostomy. RNI -VIS provided by RN - MMR desired on discharge day Acute blood loss anemia -Post-delivery Hgb 8.5 down from 10.9 -Asymptomatic -VSS -QBL 602 -Continue PNV and IV venofer 300mg daily for three doses--nursing informed me at 10:53 AM IV access no longer available and Rola declines new IV placement, will initiate PO iron BID. Anxiety/Depression -Well Controlled previously on zoloft 50mg daily PO not currently on medication -Denies any current s/s,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 c/s 29 weeks gestation of 08/23/2023 09/05/2023 General counseling and advic e for contraceptive management 08/01/2023 10/24/2023 Overview: Salpingectomy. 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 trimester 04/30/2023 10/24/2023 Last Assessment & Plan: Diagnosed in 2014 Loop ileostomy in 2018 History perianal disease with Seton drain in place Flare in 04/2023 prednisone taper Currently not on medication (plan was for remicade and imuran) Reports no flare symptoms currently although having stool per rectum and ileostomy which can be painful Needs GI follow up in addition to colorectal -Encouraged GI and colorectal follow up -Encouraged therapy during if recommended by GI as safe in -If declines medication in needs medication and GI follow up given history flare -Plan serial growth ultrasounds, considering testing if symptoms of flare third trimester (NSTs) - delivery for perianal disease, has colorectal appointment scheduled to confirm plan History of endoscopy 02/04/2023 023 Overview: 01/18/23: Moderate to severe inflammed mucosa was seen in the colon. Biopsied. Findings: On entering throught the stoma, mucosa appeared colonic. No entrance into the ileum was found. A diffuse area of inflammad mucosa in the colon starting at 25cm from stoma was found. This was moderately erythematous with superficial ulcerations. Inflammation was moderately severe from 25-60cm from the stoma and improved from 75cm and beyond. Psuedopolyps were seen from 55-60cm. This was biopsied with a cold forceps for histology. A. Colon, random, biopsy: - Colonic mucosa with patchy active chronic colitis with focal erosion and reactive epithelial changes.- Focal mucosal base granulomata. - No dysplasia seen. 2020: Impression:Seton noted. Diversion colitis. - Rectal tenderness found on digital rectal exam. - Friability with no bleeding in the entire examined colon. Biopsied. - Simple Endoscopic Score for Crohn's Disease: 13, mucosal inflammatory changes secondary to Crohn's disease with colonic involvement vs diversion colitis. Biopsied. 09/20/2020: Impression:- Preparation of the colon was fair. Procedur aborted/incomplete in the mid-transverse colon due to large stool ball precluding visulaization and further advancement of the scope. 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 - Stricture at the anus and in the distal rectum. - Simple Endoscopic Score for Crohn's Disease: 12, mucosal inflammatory changes secondary to Crohn's disease. Biopsied. - Multiple polyps in the entire colon. Biopsied. - Overall, picture consistent with diversion colitis and inflammatory polyps likely in the setting of healed up colitis. Hypomagnesemia 09/11/2018 09/12/2018 Last Assessment & Plan: Assessment: PLAN: Replete if <1.7 Hyponatremia 09/11/2018 09/12/2018 Last Assessment & Plan: Assessment: PLAN: Replete if <136 Abdominal pain 09/10/2018 01/21/2023 Last Assessment & Plan: Assessment: PLAN: Cdiff PCR +, Iv and PO antibiotics antibiotics Continue anxiolytics and analgesics Consult to behavioral medicine and psychiatry Would like to take to OR for Diverting loop ileosostomy, seton drain placement EUA tomorrow Bowel prep today, clears for dinner, NPO at midnigth UPT and T&S. Replace Elytes as needed Encourage OOb and ambulation and IS No skilled C needs at this time. Crohn's colitis 09/09/2018 02/04/2023 Overview: Added automatically from request for surgery [id number] Crohn's disease (regional enteritis) 08/22/2018 02/04/2023 Overview: Added automatically from request for surgery [id number] documented as of this encounter (statuses as of 10/25/2023) [facility]12-14-2023 Miscellaneous Notes* Quick Notes - Nae Costa MD - 09/05/2023 12:18 PM EST Was admitted again for issues with her stoma and rectal bleeding. Still has intermittent pain and feels very fatigued. On steroids. Not tolerating oral iron well. Will get iron studies/blood mgmt referral. She has a glucometer and will start checking fastings and 2hr pp. Will send me after a week. Will check glucola once off steroids. Growth scan ordered. Disc recs for c/s- scheduled 39 weeks with salpingectomy. Follow up in 2 weeks documented in [facility] encounter[facility]12-[facility]23 NoteHNO ID: [id number] Author: Araceli Zelaya Service: ? Author Type: ? Type: Plan of Care Filed: 08/26/2023 4:09 PM Note Text: PHARMACY BEDSIDE DELIVERY SERVICE Patient Name: Rola Aguilar The marked outpatient medications were Filled at: [facility] and delivered to the patient's bedside to [facility] Medication List START taking these medications metroNIDAZOLE 500 mg tablet Commonly known as: FLAGYL Take 1 tablet by mouth every 12 hours for 9 doses. oxyCODONE-acetaminophen 5-325 mg tablet Commonly known as: PERCOCET Take 1 tablet by mouth every 4 hours as needed for pain. predniSONE 10 mg tablet Commonly known as: DELTASONE Take 4 tablets by mouth once daily for 7 days, THEN 3 tablets once daily for 7 days, THEN 2 tablets once daily for 7 days, THEN 1 tablet once daily for 7 days. Start taking on: August 30, 2023 CONTINUE taking these medications cyproheptadine 4 mg tablet Commonly known as: PERIACTIN Take 1 tablet by mouth three times a day as needed. metoclopramide HCl 10 mg tablet Commonly known as: REGLAN Take 1 tablet by mouth three times a day. ondansetron orally disintegrating 4 mg disintegrating tablet Commonly known as: ZOFRAN ODT VIT [id number]-[id number] ORAL sertraline 50 mg tablet Commonly known as: ZOLOFT Take 1 tablet by mouth once daily. You might also be taking other medications not listed above. If you have questions about any of your other medications, talk to the person who prescribed them or your Primary Care Provider. Araceli Zelaya PAGER: [phone] August 26, 2023 4:07 [facility]12-01-2023 NoteHNO ID: [id number] Author: Araceli Zelaya Service: ? Author Type: ? Type: Plan of Care Filed: 08/26/2023 12:38 PM Note Text: PHARMACY BEDSIDE DELIVERY SERVICE Patient Name: Rola Aguilar The marked outpatient medications were filled at [facility] pharmacy and picked up at the pharmacy by herself Medication List START taking these medications metroNIDAZOLE 500 mg tablet Commonly known as: FLAGYL Take 1 tablet by mouth every 12 hours for 9 doses. oxyCODONE-acetaminophen 5-325 mg tablet Commonly known as: PERCOCET Take 1 tablet by mouth every 4 hours as needed for pain. predniSONE 10 mg tablet Commonly known as: DELTASONE Take 4 tablets by mouth once daily for 7 days, THEN 3 tablets once daily for 7 days, THEN 2 tablets once daily for 7 days, THEN 1 tablet once daily for 7 days. Start taking on: August 30, 2023 CONTINUE taking these medications cyproheptadine 4 mg tablet Commonly known as: PERIACTIN Take 1 tablet by mouth three times a day as needed. metoclopramide HCl 10 mg tablet Commonly known as: REGLAN Take 1 tablet by mouth three times a day. ondansetron orally disintegrating 4 mg disintegrating tablet Commonly known as: ZOFRAN ODT VIT 93-FHBA-[id number]-DHA ORAL sertraline 50 mg tablet Commonly known as: ZOLOFT Take 1 tablet by mouth once daily. You might also be taking other medications not listed above. If you have questions about any of your other medications, talk to the person who prescribed them or your Primary Care Provider. Araceli Zelaya PAGER: [phone] August 26, 2023 12:38 [facility]12-01-2023 History of Past illness Narrative* Problem Noted Date Diagnosed Date Resolved Date 29 weeks gestation of 08/23/2023 09/05/2023 25 weeks gestation of 07/27/2023 08/01/2023 13 weeks gestation of 04/30/2023 07/04/2023 History of endoscopy 02/04/2023 023 Overview: 01/18/23: Moderate to severe inflammed mucosa was seen in the colon. Biopsied. Findings: On entering throught the stoma, mucosa appeared colonic. No entrance into the ileum was found. A diffuse area of inflammad mucosa in the colon starting at 25cm from stoma was found. This was moderately erythematous with superficial ulcerations. Inflammation was moderately severe from 25-60cm from the stoma and improved from 75cm and beyond. Psuedopolyps were seen from 55-60cm. This was biopsied with a cold forceps for histology. A. Colon, random, biopsy: - Colonic mucosa with patchy active chronic colitis with focal erosion and reactive epithelial changes.- Focal mucosal base granulomata. - No dysplasia seen. 2020: Impression:Seton noted. Diversion colitis. - Rectal tenderness found on digital rectal exam. - Friability with no bleeding in the entire examined colon. Biopsied. - Simple Endoscopic Score for Crohn's Disease: 13, mucosal inflammatory changes secondary to Crohn's disease with colonic involvement vs diversion colitis. Biopsied. 09/20/2020: Impression:- Preparation of the colon was fair. Procedur aborted/incomplete in the mid-transverse colon due to large stool ball precluding visulaization and further advancement of the scope. 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 - Stricture at the anus and in the distal rectum. - Simple Endoscopic Score for Crohn's Disease: 12, mucosal inflammatory changes secondary to Crohn's disease. Biopsied. - Multiple polyps in the entire colon. Biopsied. - Overall, picture consistent with diversion colitis and inflammatory polyps likely in the setting of healed up colitis. Hypomagnesemia 09/11/2018 09/12/2018 Last Assessment & Plan: Assessment: PLAN: Replete if <1.7 Hyponatremia 09/11/2018 09/12/2018 Last Assessment & Plan: Assessment: PLAN: Replete if <136 Abdominal pain 09/10/2018 01/21/2023 Last Assessment & Plan: Assessment: PLAN: Cdiff PCR +, Iv and PO antibiotics antibiotics Continue anxiolytics and analgesics Consult to behavioral medicine and psychiatry Would like to take to OR for Diverting loop ileosostomy, seton drain placement EUA tomorrow Bowel prep today, clears for dinner, NPO at midnigth UPT and T&S. Replace Elytes as needed Encourage OOb and ambulation and IS No skilled [facility] needs at this time. Crohn's colitis 09/09/2018 02/04/2023 Overview: Added automatically from request for surgery [id number] Crohn's disease (regional enteritis) 08/22/2018 02/04/2023 Overview: Added automatically from request for surgery [id number] documented as of this encounter (statuses as of 09/06/2023) [facility]12-01-2023 NoteHNO ID: [id number] Author: Reginald Martinez DO Service: Maternal Medicine Author Type: Resident Type: Progress Notes Filed: 08/23/2023 7:31 AM Note Text: Attestation signed by Mitch Irving MD at 08/23/2023 12:47 PM (Updated) Attending Note I evaluated the patient and personally participated in the nelson components. I agree with the resident's findings and plan as documented and have discussed the case and management of the patient's care with the resident. 28-year-old -0-0-1 at 29 weeks 2 days who was admitted for abdominal pain in the setting of Crohn's disease with prolapsed loop ileostomy. MRI on 08/20/2023 demonstrated active inflammation involving the ascending colon, transverse colon and descending colon. No small bowel disease was noted. She received IV Solu-Medrol yesterday and started oral meds today. Pt requesting percocet until steroids are active in reducing pain from the Crohn's flare. Will dispense #5 pills to be used over the next 3 days. REcommend follow up with Dr. Costa in 1 week. F/u with GI as directed. Discussed discharge with GI today who agrees (Martha Quiñones). Discharge management took approximately 60 minutes Plan of care discussed with: Provider, RN, Patient Signature: Mitch Irving MD Date: August 23, 2023 Time: 9:33 AM OBSTETRICS ANTEPARTUM PROGRESS NOTE SERVICE DATE: 08/23/2023 SERVICE TIME: 6:32 AM Assessment AND Plan : 28 year old at 29w2d admitted for abdominal pain in the setting of Crohn's disease with prolapsed loop ileostomy. Abdominal Pain Crohn's Disease Prolapsed Stoma - likely crohn's flare, low suspicion for incarcerated stoma given well perfused on exam. Last crohn's flare Apr 2023 - per pt stoma prolapse not worsened from prior. Evaluated by surgery last admission and no surgical intervention warranted - stoma functioning - stoma team consulted, no further recs - tylenol, oxycodone, morphine PRN - outpatient with [facility] with plans to reverse after delivery - cx FT; no contractions on toco. Suspicion low for PTL - MRI 08/20: Active inflammation involving the ascending colon, transverse colon, and descending colon. Sparing of the rectum. No Small bowel disease seen - GI following: IV solu-meddrol x1 yesterday, with plans to start PO today and likely discharge home; F/u requested per GI team Bacteria Vaginosis Vaginal Bleeding, resolved - in the setting of friable cervix; no bleeding from os visualized - 07/08 sono: posterior fundal placenta - has hx of occasional rectal bleeding, no obvious - flagyl q12h (08/21-08/27) MDD/PARMINDER - home zoloft Routine OB - PNL reviewed: B+/Hep B neg/Hep C neg/HIV neg/GC,CT neg/RI/syphilis neg - 3rd tri labs not yet done, no Tdap yet - growth on anatomy sono 07/08: EFW 92%, AC 91% - consents: signed 07/29/23 - presentation: breech - daily NST Plan of care discussed with: Provider, RN, Patient. Subjective : Abdominal pain improving, about 5/10 from 10 earlier this admission. Nausea resolved. No other complaints. Good movement, no LOF/VB/ctx. Objective : LAST VITALS: Pulse BP Resp O2 Sat Temp Pain 63 113/68 16 97 % 36.9 ?C (98.4 ?F) 7 PHYSICAL EXAM: General: NAD Chest: normal inspiratory effort Abdomen: soft, gravid, nontender, nondistended; stoma in place Extremities: trace edema MONITORING/ASSESSMENT: NST with discrete interpretation : MONITORING/ASSESSMENT: Baseline Rate: 130 bpm (08/22/23 1251 : Martha Hernandez RN) Variability: Moderate (6-25 bpm) (08/22/23 1251 : Martha Hernandez RN) Accelerations: Present (08/22/23 1251 : Martha Hernandez RN) Decelerations: None (08/22/23 1251 : Martha Hernandez, SHAHBAZ) Contractions: Not present (08/22/23 1251 : Martha Hernandez RN) Contraction Frequency (min): x2 (08/19/23 1900 : Caty Walker, SHAHBAZ) NST INTERPRETATION: FHR Category: 1 (08/19/23 1900 : Caty Walker RN) LABS Diagnostic tests reviewed for today's visit: Most recent labs and imaging results. SIGNATURE: Reginald Martinez DO PATIENT NAME: Rola Aguilar DATE: August 23, 2023 TIME: 6:32 [facility]11-30-2023 NoteHNO ID: [id number] Author: Navdeep Sethi MD Service: Nursing Author Type: Physician Type: Procedures Filed: 08/22/2023 5:38 PM Note Text: OBSTETRICS NST SUMMARY SERVICE DATE: August 22, 2023 The patient is a 28 year old female, , who is at 29w1d with an SUSHMA of 11/06/2023, by Last Menstrual Period dating method. NST OBJECTIVE FINDINGS PER NURSE: Start Time: 1225 (08/22/23 1251 : Martha Hernandez RN) Complete Time: 1251 (08/22/23 1251 : Martha Hernandez RN) Indications: Other: Comment ( wellbeing) (08/22/23 1251 : Martha Hernandez RN) NST Explanation: Procedure Explained;Monitor Explained;Verbalizes Understanding (08/22/23 1251 : Martha Hernandez RN) MONITORING/ASSESSMENT: Baseline: 130 bpm (08/22/23 1251 : Martha Hernandez RN) Variability: Moderate (6-25 bpm) (08/22/23 1251 : Martha Hernandez RN) Accelerations: Present (08/22/23 1251 : Martha Hernandez RN) Decelerations: Decelerations: None (08/22/23 1251 : Martha Hernandez RN) Contractions: Not present (08/22/23 1251 : Martha Hernandez RN) Above information forwarded to for final review and interpretation. MFM Attending I personally reviewed the heart rate tracing. Reactive NST. Navdeep Sethi MD Maternal Medicine / Medical Genetics SIGNATURE: Martha Hernandez RN PATIENT NAME: Rola Aguilar DATE: August 22, 2023 TIME: 1:12 [facility]11-30-2023 Telephone encounter Note* Telephone Encounter - Mary Hancock - 08/22/2023 10:24 AM EST Tried calling patient to add her to schedule. Although chart seems patient is admitted at this time. [facility]11-30-2023 Miscellaneous Notes* Telephone Encounter - Mary Hancock - 08/22/2023 10:24 AM EST Tried calling patient to add her to schedule. Although chart seems patient is admitted at this time. * Telephone Encounter - Rosalba Wolf RN - 08/21/2023 3:26 PM EST Ok to add on Sep 10 at 11:40 or maybe Aug 30 if needs seen sooner. Cirilo Villa Jr., DO Schedulers , please schedule patient per above notes. Thank you Rosalba Wolf RN * Telephone Encounter - Briana Rose RN - 08/21/2023 11:47 AM EST Rosalba, can pt be scheduled with Dr. Villa in [place]?? Please advise. Thank you. Briana Rose RN * Telephone Encounter - Angel Jaquez PA-C - 08/21/2023 11:42 AM EST Hi! The patient is currently 29 weeks with crohn's disease. Most recent MRI showed active inflammation in the ascending, transverse and descending colon. She is hesitant about taking medications, however Dr. Humphries states she should be seen prior to her giving in 4-6 weeks. She lives in [place] so [place] ([place] or [place]) would be preferred. Please arrange accordingly. Thanks! Angel Jaquez PA-C Gastroenterology and Hepatology [facility]23 NoteHNO ID: [id number] Author: Mildred Fernandez MD Service: Obstetrics Author Type: Resident Type: Progress Notes Filed: 08/22/2023 7:34 AM Note Text: Attestation signed by Navdeep Sethi MD at 08/22/2023 5:37 PM (Updated) Attestation signed by Navdeep Sethi MD at 08/22/2023 11:13 AM MFM Attending Note I saw and evaluated the patient. I personally obtained the nelson and critical portions of the history and physical exam. I reviewed the resident?s documentation and discussed the patient with the resident. I agree with the resident?s medical decision making as documented in the resident?s note. 27-year-old, , EGA:29w1d with Crohn's Disease second admission in a month for abdominal pain. Last active flare last in April. History perianal disease and loop ileostomy. prolapse. MRI was performed yesterday showed features of inflammatory bowel disease. The patient is complaining of tenesmus and frequent loose stool with mucous. No hematochezia. No signs or symptoms of bowel obstruction. On diet regimen, IV solumedrol 20 mg x 2 doses then will start prednisone 40 mg po daily 08/23, decreasing by 10 mg weekly. Possible discharge home tomorrow if her pain improves. We will continue inpatient management. BP 115/66 Pulse 74 Temp 36.8 ?C (98.2 ?F) (Oral) Resp 16 Ht 167.6 cm (5' 6 ) Wt 89.4 kg (197 lb) LMP 01/30/2023 (Exact Date) SpO2 98% BMI 31.80 kg/m? CBC, Coags, BMP, Mg, Phos Recent Labs 08/22/23 1041 08/19/232005 WBC 2.90* 5.21 HB 10.1* 10.3* HCT 31.5* 31.3* PLT 176 231 NA -- 135* K -- 3.6* CHLOR -- 103 CO2 -- 18* BUN -- 6* CREAT -- 0.52* GLUC -- 74 CA -- 8.9 Liver Function, Amylase, AND Lipase Recent Labs 08/19/232005 TPROT 7.4 ALB 3.8* ALT 14 AST 17 ALKPHOS 98 TBILI 0.3 OBSTETRICS ANTEPARTUM CONSULT NOTE SERVICE DATE: 08/22/2023 SERVICE TIME: 6:23 AM Assessment AND Plan : 28 year old EGA:29w1d Presenting with abdominal pain in the setting of Crohn's disease with prolapsed loop ileostomy. Abdominal Pain Crohn's Disease Prolapsed Stoma - possible ddx includes crohn's flare, low suspicion for incarcerated stoma given well perfused on exam. Last crohn's flare Apr 2023 - per pt stoma prolapse not worsened from prior. Evaluated by surgery last admission and no surgical intervention warranted - stoma functioning - stoma team consulted, no further recs - tylenol, oxycodone, morphine PRN - outpatient with [facility] with plans to reverse after delivery - cx FT; no contractions on toco. Suspicion low for PTL - MRI 08/20: Active inflammation involving the ascending colon, transverse colon, and descending colon. Sparing of the rectum. No Small bowel disease seen - GI following Bacteria Vaginosis Vaginal Bleeding, resolved - in the setting of friable cervix; no bleeding from os visualized - 07/08 sono: posterior fundal placenta - has hx of occasional rectal bleeding, no obvious - flagyl q12h (08/21-08/27) MDD/PARMINDER - home zoloft Routine OB - PNL reviewed: B+/Hep B neg/Hep C neg/HIV neg/GC,CT neg/RI/syphilis neg - 3rd tri labs not yet done, no Tdap yet - growth on anatomy sono 07/08: EFW 92%, AC 91% - consents: signed 07/29/23 - presentation: breech - daily NST Plan of care discussed with: Provider, RN, Patient. Subjective : Having some abdominal pain after eating full liquids. No current vaginal bleeding, No current leaking of fluid, No contractions, Good movement, No shortness of breath or chest pain, and No calf tenderness Objective : LAST VITALS: Pulse BP Resp O2 Sat Temp Pain 68 97/54 18 98 % 36.4 ?C (97.5 ?F) 2 PHYSICAL EXAM: General: WD, WN Heart: RR Lungs: comfortable on room air Abdomen: soft, nontender, non peritonitic, ostomy with brown output. Ostomy pink, non tender to palpation through bag Extremities: no edema MONITORING/ASSESSMENT: Non-stress test pending LABS Diagnostic tests reviewed for today's visit: Most recent labs and imaging results. SIGNATURE: Mildred Fernandez MD PATIENT NAME: Rola Aguilar DATE: 08/22/2023 TIME: 6:23 [facility]11-29-2023 Telephone encounter Note* Telephone Encounter - Rosalba Wolf RN - 08/21/2023 3:26 PM EST Ok to add on Sep 10 at 11:40 or maybe Aug 30 if needs seen sooner. Cirilo Villa Jr., DO Schedulers , please schedule patient per above notes. Thank you Rosalba Wolf RN [facility]11-29-2023 Telephone encounter Note* Telephone Encounter - Briana Rose RN - 08/21/2023 11:47 AM EST Rosalba, can pt be scheduled with Dr. Villa in [place]?? Please advise. Thank you. Briana Rose RN [facility] Work Phone: [phone] 470-782911-29-2023 Telephone encounter Note* Telephone Encounter - Angel Jaquez PA-C - 08/21/2023 11:42 AM EST Hi! The patient is currently 29 weeks with crohn's disease. Most recent MRI showed active inflammation in the ascending, transverse and descending colon. She is hesitant about taking medications, however Dr. Humphries states she should be seen prior to her giving in 4-6 weeks. She lives in [place] so [place] the [place] side ([place] or [place]) would be preferred. Please arrange accordingly. Thanks! Angel Jaquez PA-C Gastroenterology and Hepatology [facility]11-29-2023 NoteHNO ID: [id number] Author: Navdeep Sethi MD Service: Maternal Medicine Author Type: Physician Type: Progress Notes Filed: 08/22/2023 10:33 AM Note Text: MFM Attending Note I saw and evaluated the patient bed side. 28 year old EGA:29 wd1 Presenting with abdominal pain in the setting of Crohn's disease with prolapsed loop ileostomy. Patient does not have any acute complaint today. She is tolerating her liquid diet well. She denies any nausea or vomiting or diarrhea. No signs or symptoms of bowel obstruction. Abdomen is soft and nontender no signs of peritonitis or peritonism. MR I of the abdomen showed signs of inflammatory bowel disease however no specific signs of bowel obstruction. We will advance her diet to full clear liquid diet. We will discuss further diet regimen with the GIT team. Her abdominal pain likely due to scarring/adhesions or impaired bowel motility. Patient reported significant improvement. Plan to discharge home tomorrow. BP 99/62 Pulse 77 Temp 36.8 ?C (98.2 ?F) (Oral) Resp 16 Ht 167.6 cm (5' 6 ) Wt 89.4 kg (197 lb) LMP 01/30/2023 (Exact Date) SpO2 97% BMI 31.80 kg/m? CBC, Coags, BMP, Mg, Phos Recent Labs 08/19/232005 WBC 5.21 HB 10.3* HCT 31.3* PLT 231 NA 135* K 3.6* CHLOR 103 CO2 18* BUN 6* CREAT 0.52* GLUC 74 CA 8.9 Liver Function, Amylase, AND Lipase Recent Labs 08/19/232005 TPROT 7.4 ALB 3.8* ALT 14 AST 17 ALKPHOS 98 TBILI 0.3 Navdeep Sethi MD Maternal Medicine / Medical GeneticsWhitinsville [id number] Note Borderline elevated. Re-evaluation in 4-6 weeks is recommended if clinically indicated.Whitinsville HospitalComment on above:Order Comment: Specimen Type: BLOOD SPECIMEN Ordering Facility: [facility] Address: [address] [place] [address] [id number] Comment: On February 12, 2023, [facility] implemented a new fecal calprotectinmethod, the Dia[employer] Liaison Calprotectin assay. For assistance with interpretation of results in patients undergoing serial monitoring, contact Client Services at [phone] or [phone] to discuss options, preferably within 7 days of issuing this report. Interpretation: <50.0 ug/g: Normal 50.0 ug/g - 120.0 ug/g: Borderline elevated. Re-evaluation in 4-6 weeks is recommended if clinically indicated. >120.0 ug/g: ElevatedPerformed By: #### 02300-7, 3040-3 #### [facility] [id number] [address]11-28-2023 NoteHNO ID: [id number] Author: Jania Trinh RN Service: Nursing Author Type: Registered Nurse Type: Procedures Filed: 08/20/2023 4:52 PM Note Text: Attestation signed by Briana Larios MD at 08/20/2023 10:20 PM PROVIDER INTERPRETATION: appropriate for gestational age SIGNATURE: Briana Larios MD DATE: August 20, 2023 TIME: 10:20 PM OBSTETRICS NST SUMMARY SERVICE DATE: August 20, 2023 The patient is a 28 year old female, , who is at 28w6d with an SUSHMA of 11/06/2023, by Last Menstrual Period dating method. NST OBJECTIVE FINDINGS PER NURSE: Start Time: 5118 (08/20/23 1640 : Jania Trinh RN) Complete Time: 1639 (08/20/23 1640 : Jania Trinh RN) Indications: Other: Comment (Crohn's) (08/20/23 1640 : Jania Trinh RN) Patient Reason For: To monitor baby (08/20/23 1640 : Jania Trinh RN) NST Explanation: Procedure Explained;Monitor Explained;Verbalizes Understanding (08/20/23 1640 : Jania Trinh RN) Acoustic Stimulator: Interventions: MONITORING/ASSESSMENT: Baseline: 130 bpm (08/20/23 1640 : Jania Trinh RN) Variability: Moderate (6-25 bpm) (08/20/23 [facility] : Jania Trinh RN) Accelerations: Present (08/20/23 1640 : Jania Trinh RN) Decelerations: Decelerations: None (08/20/23 [facility] : Jania Trinh RN) Contractions: Not present (08/20/23 [facility] : Jania Trinh RN) Frequency: Above information forwarded to Dr. Larios (08/20/23 1640 : Jania Trinh RN) for final review and interpretation. SIGNATURE: Jania Trinh RN PATIENT NAME: Rola Aguilar DATE: August 20, 2023 TIME: 4:51 [facility]11-28-2023 NoteHNO ID: [id number] Author: Mildred Fernandez MD Service: Obstetrics Author Type: Resident Type: Plan of Care Filed: 08/20/2023 2:20 PM Note Text: PLAN OF CARE SERVICE DATE: 08/20/2023 SERVICE TIME: 2:17 PM 28 year old EGA:28w6d Presenting with abdominal pain in the setting of Crohn's disease with prolapsed loop ileostomy. Needs MRI to evaluate abdominal pain and Crohn's. Discussed risks and benefits of MRI in including radiation risk, theoretically low risk. Patient accepts risks and agrees to going for MRI. MRI screening completed. SIGNATURE: Mildred Fernandez MD PATIENT NAME: Rola Aguilar DATE: 08/20/2023 TIME: 2:17 [facility]11-27-2023 NoteHNO ID: [id number] Author: Caty Walker RN Service: Nursing Author Type: Registered Nurse Type: Procedures Filed: 08/19/2023 7:18 PM Note Text: Attestation signed by Tatiana Irvin MD at 08/19/2023 9:31 PM NST SUMMARY PROVIDER ASSESSMENT AND INTERPRETATION Indications for NST: Abdominal pain Baseline: 135 Variability: Moderate Accelerations: Present 15 X 15 Decelerations: None Contractions: TOCO: None Interpretation: Category I SIGNATURE: Tatiana Irvin OBSTETRICS NST SUMMARY SERVICE DATE: August 19, 2023 The patient is a 28 year old female, , who is at 28w5d with an SUSHMA of 11/06/2023, by Last Menstrual Period dating method. NST OBJECTIVE FINDINGS PER NURSE: Start Time: 1837 (08/19/231899 : Caty Walker, RN) Complete Time: 1899 (08/19/231899 : Caty Walker, RN) Indications: Other: Comment (cramping, N/V/D, H/O crohn's, ileostomy) (08/19/231899 : Caty Walker, RN) Patient Reason For: N/V/D, cramping (08/19/231899 : Caty Walker, RN) NST Explanation: Procedure Explained;Monitor Explained;Verbalizes Understanding (08/19/231899 : Caty Walker RN) Acoustic Stimulator: No (08/19/231899 : Caty Walker RN) Interventions: Reposition (08/19/231899 : Caty Walker RN) MONITORING/ASSESSMENT: Baseline: 135 bpm (08/19/231899 : Caty Walker RN) Variability: Moderate (6-25 bpm) (08/19/231899 : Caty Walker RN) Accelerations: Present (08/19/231899 : Caty Walker RN) Decelerations: Decelerations: None (08/19/231899 : Caty Walker RN) Contractions: Irregular (08/19/231899 : Caty Walker RN) Frequency: x2 (08/19/231899 : Caty Walker RN) Above information forwarded to Dr Irvin (08/19/231899 : Caty Walker RN) for final review and interpretation. SIGNATURE: Caty Walker RN PATIENT NAME: Rola Aguilar DATE: August 19, 2023 TIME: 7:17 [facility]11-27-2023 Miscellaneous Notes* Telephone Encounter - Jordin Carey RN - 08/19/2023 12:18 PM EST Discussed with Dr. Valderrama in person. Per Dr. Valderrama, patient should go to OB triage for evaluation. Call place to patient who was identified by name and . Patient notified of Dr. Valderrama's message.Patient verbalized understanding and states has no questions at this time. 3S notified, report given to Laura. Jordin Carey RN * Telephone Encounter - Jordin Carey RN - 08/19/2023 11:50 AM EST Receive call from patient who was identified by name and . 28.5 wga. Reports intermittent cramping over last 2 days. Reports pain is around umbilicus, rates 8/10, took 500mg of Tylenol at 0930 with no relief. Also reports scant amount of red/pink bleeding when wiping.Denies clots. Denies LOF or decreased FM. Reports drinking 32oz of water so far today. Reports 1 episode of vomiting this morning. Denies recent sexual intercourse. Reports h/o Crohn's, has ileostomy. Patient states unsure if cramping is r/t Crohn's or if bleedingis from rectum d/t small amount. Recommended patient call back with worsening bleeding or cramping, or with LOF or decreased FM. Recommended increase hydration. Message forwarded to floor coverings salesperson provider. Jordin Carey RN documented in this encounterAv[facility] System11-13-2023 Miscellaneous Notes* Telephone Encounter - Rosalba Price RN - 08/05/2023 1:34 PM EST 2nd risk assessment form submitted 08/05/2023. Rosalba Price RN documented in this encounterAvita Health System11-09-2023 Miscellaneous Notes* Quick Notes - Nae Costa MD - 08/01/2023 4:56 PM EST GFM. Was at hospital for cramping and saw GI. Having some issues with ostomy. Going to see Dr. Thakkar tomorrow. Disc del plan for cs 39 weeks if all stable. She desires perm sterilization. Reviewed procedure, salpingectomy, permanence. Medicaid consent signed. Glucola labs reviewed and ordered. Plan growth scan next trimester documented in this encounterAvita Health System11-09-2023 Instructions* Patient Instructions* Nae Costa MD - 08/01/2023 2:01 PM EST 1 HOUR GLUCOLA TEST PREPARATION, EXPLANATION & INSTRUCTIONS The test is performed to detect gestational diabetes mellitus. Some women, when they become , will develop this condition. If left untreated or undetected, diabetes may lead to problems with both your health and your baby's. All OB patients must have the 1 hour Glucola testing between 24 and 28 weeks. You do not need to be fasting but we recommend not eating or drinking anything sweet or carb heavy for 2 hours prior. You should arrive at your appointment prepared to drink 50gms of glucose beverage. Your blood will be drawn 1 hour after the Glucola is consumed. No food, candy, gum, beverages or water may be consumed during the test. No smoking during testing!! Testing is complete after blood is drawn. You will also be tested for anemia and have your syphillis test retested. TDAP documented in this encounterAvita [facility] System11-04-2023 History of Past illness Narrative* Problem Noted Date Diagnosed Date Resolved Date 25 weeks gestation of 07/27/2023 08/01/2023 13 weeks gestation of 04/30/2023 07/04/2023 History of endoscopy 02/04/2023 023 Overview: 01/18/23: Moderate to severe inflammed mucosa was seen in the colon. Biopsied. Findings: On entering throught the stoma, mucosa appeared colonic. No entrance into the ileum was found. A diffuse area of inflammad mucosa in the colon starting at 25cm from stoma was found. This was moderately erythematous with superficial ulcerations. Inflammation was moderately severe from 25-60cm from the stoma and improved from 75cm and beyond. Psuedopolyps were seen from 55-60cm. This was biopsied with a cold forceps for histology. A. Colon, random, biopsy: - Colonic mucosa with patchy active chronic colitis with focal erosion and reactive epithelial changes.- Focal mucosal base granulomata. - No dysplasia seen. 2020: Impression:Raúl noted. Diversion colitis. - Rectal tenderness found on digital rectal exam. - Friability with no bleeding in the entire examined colon. Biopsied. - Simple Endoscopic Score for Crohn's Disease: 13, mucosal inflammatory changes secondary to Crohn's disease with colonic involvement vs diversion colitis. Biopsied. 09/20/2020: Impression:- Preparation of the colon was fair. Procedur aborted/incomplete in the mid-transverse colon due to large stool ball precluding visulaization and further advancement of the scope. 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 - Stricture at the anus and in the distal rectum. - Simple Endoscopic Score for Crohn's Disease: 12, mucosal inflammatory changes secondary to Crohn's disease. Biopsied. - Multiple polyps in the entire colon. Biopsied. - Overall, picture consistent with diversion colitis and inflammatory polyps likely in the setting of healed up colitis. Hypomagnesemia 09/11/2018 09/12/2018 Last Assessment & Plan: Assessment: PLAN: Replete if <1.7 Hyponatremia 09/11/2018 09/12/2018 Last Assessment & Plan: Assessment: PLAN: Replete if <136 Malnutrition of mild degree 09/11/2018 01/21/2023 Abdominal pain 09/10/2018 01/21/2023 Last Assessment & Plan: Assessment: PLAN: Cdiff PCR +, Iv and PO antibiotics antibiotics Continue anxiolytics and analgesics Consult to behavioral medicine and psychiatry Would like to take to OR for Diverting loop ileosostomy, seton drain placement EUA tomorrow Bowel prep today, clears for dinner, NPO at midnigth UPT and T&S. Replace Elytes as needed Encourage OOb and ambulation and IS No skilled C needs at this time. Crohn's colitis 09/09/2018 02/04/2023 Overview: Added automatically from request for surgery [id number] Crohn's disease (regional enteritis) 08/22/2018 02/04/2023 Overview: Added automatically from request for surgery [id number] documented as of this encounter (statuses as of 2023) [facility]11-04-20[facility] History of Past illness Narrative* Problem Noted Date Diagnosed Date Resolved Date 25 weeks gestation of 07/27/2023 08/01/2023 13 weeks gestation of 04/30/2023 07/04/2023 History of endoscopy 02/04/2023 023 Overview: 01/18/23: Moderate to severe inflammed mucosa was seen in the colon. Biopsied. Findings: On entering throught the stoma, mucosa appeared colonic. No entrance into the ileum was found. A diffuse area of inflammad mucosa in the colon starting at 25cm from stoma was found. This was moderately erythematous with superficial ulcerations. Inflammation was moderately severe from 25-60cm from the stoma and improved from 75cm and beyond. Psuedopolyps were seen from 55-60cm. This was biopsied with a cold forceps for histology. A. Colon, random, biopsy: - Colonic mucosa with patchy active chronic colitis with focal erosion and reactive epithelial changes.- Focal mucosal base granulomata. - No dysplasia seen. 2020: Impression:Seton noted. Diversion colitis. - Rectal tenderness found on digital rectal exam. - Friability with no bleeding in the entire examined colon. Biopsied. - Simple Endoscopic Score for Crohn's Disease: 13, mucosal inflammatory changes secondary to Crohn's disease with colonic involvement vs diversion colitis. Biopsied. 09/20/2020: Impression:- Preparation of the colon was fair. Procedur aborted/incomplete in the mid-transverse colon due to large stool ball precluding visulaization and further advancement of the scope. 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 - Stricture at the anus and in the distal rectum. - Simple Endoscopic Score for Crohn's Disease: 12, mucosal inflammatory changes secondary to Crohn's disease. Biopsied. - Multiple polyps in the entire colon. Biopsied. - Overall, picture consistent with diversion colitis and inflammatory polyps likely in the setting of healed up colitis. Hypomagnesemia 09/11/2018 09/12/2018 Last Assessment & Plan: Assessment: PLAN: Replete if <1.7 Hyponatremia 09/11/2018 09/12/2018 Last Assessment & Plan: Assessment: PLAN: Replete if <136 Malnutrition of mild degree 09/11/2018 01/21/2023 Abdominal pain 09/10/2018 01/21/2023 Last Assessment & Plan: Assessment: PLAN: Cdiff PCR +, Iv and PO antibiotics antibiotics Continue anxiolytics and analgesics Consult to behavioral medicine and psychiatry Would like to take to OR for Diverting loop ileosostomy, seton drain placement EUA tomorrow Bowel prep today, clears for dinner, NPO at midnigth UPT and T&S. Replace Elytes as needed Encourage OOb and ambulation and IS No skilled C needs at this time. Crohn's colitis 09/09/2018 02/04/2023 Overview: Added automatically from request for surgery [id number] Crohn's disease (regional enteritis) 08/22/2018 02/04/2023 Overview: Added automatically from request for surgery [id number] documented as of this encounter (statuses as of 08/05/2023) [facility] History of Past illness Narrative* Problem Noted Date Diagnosed Date Resolved Date 25 weeks gestation of 07/27/2023 08/01/2023 13 weeks gestation of 04/30/2023 07/04/2023 History of endoscopy 02/04/2023 023 Overview: 01/18/23: Moderate to severe inflammed mucosa was seen in the colon. Biopsied. Findings: On entering throught the stoma, mucosa appeared colonic. No entrance into the ileum was found. A diffuse area of inflammad mucosa in the colon starting at 25cm from stoma was found. This was moderately erythematous with superficial ulcerations. Inflammation was moderately severe from 25-60cm from the stoma and improved from 75cm and beyond. Psuedopolyps were seen from 55-60cm. This was biopsied with a cold forceps for histology. A. Colon, random, biopsy: - Colonic mucosa with patchy active chronic colitis with focal erosion and reactive epithelial changes.- Focal mucosal base granulomata. - No dysplasia seen. 2020: Impression:Seton noted. Diversion colitis. - Rectal tenderness found on digital rectal exam. - Friability with no bleeding in the entire examined colon. Biopsied. - Simple Endoscopic Score for Crohn's Disease: 13, mucosal inflammatory changes secondary to Crohn's disease with colonic involvement vs diversion colitis. Biopsied. 09/20/2020: Impression:- Preparation of the colon was fair. Procedur aborted/incomplete in the mid-transverse colon due to large stool ball precluding visulaization and further advancement of the scope. 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 - Stricture at the anus and in the distal rectum. - Simple Endoscopic Score for Crohn's Disease: 12, mucosal inflammatory changes secondary to Crohn's disease. Biopsied. - Multiple polyps in the entire colon. Biopsied. - Overall, picture consistent with diversion colitis and inflammatory polyps likely in the setting of healed up colitis. Hypomagnesemia 09/11/2018 09/12/2018 Last Assessment & Plan: Assessment: PLAN: Replete if <1.7 Hyponatremia 09/11/2018 09/12/2018 Last Assessment & Plan: Assessment: PLAN: Replete if <136 Malnutrition of mild degree 09/11/2018 01/21/2023 Abdominal pain 09/10/2018 01/21/2023 Last Assessment & Plan: Assessment: PLAN: Cdiff PCR +, Iv and PO antibiotics antibiotics Continue anxiolytics and analgesics Consult to behavioral medicine and psychiatry Would like to take to OR for Diverting loop ileosostomy, seton drain placement EUA tomorrow Bowel prep today, clears for dinner, NPO at midnigth UPT and T&S. Replace Elytes as needed Encourage OOb and ambulation and IS No skilled HHC needs at this time. Crohn's colitis 09/09/2018 02/04/2023 Overview: Added automatically from request for surgery [id number] Crohn's disease (regional enteritis) 08/22/2018 02/04/2023 Overview: Added automatically from request for surgery [id number] documented as of this encounter (statuses as of 08/19/2023) [facility] Miscellaneous Notes* Telephone Encounter - Anand Key RN - 07/24/2023 4:32 PM EDT Medication refill request Last seen for FOB visit: 07/04/2023 Upcoming OB appt 08/01/2023 Requested Prescriptions Pending Prescriptions Disp Refills sertraline (ZOLOFT) 50 mg tablet [Pharmacy Med Name: SERTRALINE HCL 25 MG TABLET] 90 tablet 3 Sig: Take 1 tablet by mouth once daily. Message forwarded to Dr. Igor Key RN documented in this encounterAvita Health System11-01-2023 Miscellaneous Notes* Telephone Encounter - Ted Brito RN - 07/24/2023 10:35 AM EDT From: Naomie Jarvis MD Sent: 07/08/2023 12:53 PM EDT To: Nae Costa MD; Rut Lagos MD Hi, this patient said she does not want to take medication during although I reiterated the safety of IBD meds as indicated. I know she's set to see colorectal surgery but looks like she needs GI follow up (and will definitely need med plan as she had severe symptoms after her last delivery). Dr Lagos are you able to see her during this ? Looks like she has been intermittently making appointments but now linked in with care. Nae, she told me she wantssalpingectomy with her . Thank you ! -Naomie Called patient and left message to call or send Usermindhart message to schedule an appointment. AdvisedDr. Lagos wanted an appointment during to make sure symptoms are being managed well. Will follow up as needed. Ted Rodriguez RN documented in this encounterAvita Health System10-13-2023 Miscellaneous Notes* Telephone Encounter - Lynn Pena RN - 07/05/2023 9:00 AM EDT 1st risk assessment form submitted at 22.2 wks. Lynn Pena RN documented in this encounterAvita Health System10-13-2023 Miscellaneous Notes* Telephone Encounter - Nahomy Melton RN - 07/05/2023 8:55 AM EDT Called patient, identified by name and . Informed call is regarding scheduling MFM consult and u/s as ordered by primary OB. Verbalizes understanding, and agreement. G 2 P 1. H/o Crohn's disease, for > 10 years. First full term (40 weeks) baby weighed 5 lb 9 oz. 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 labs/Maternit 21 drawn today. Current medications: Periactin, Reglan and PNV. Appointments offered and accepted Jul 08 at the [place] office, starting at 0800 Instructed to drink 16 oz of water en-route to appointment, verbalizes understanding and agreement.No questions/concerns at this time. documented in this encounterAvita Health System10-12-2023 Instructions* Patient Instructions* Nae Costa MD - 07/04/2023 9:20 AM EDT Please select the following link to access the [facility] Your Guide to a Healthy . [email or web address] documented in this encounterAvita Health System10-12-2023 History of Present illness Narrative* Nae Costa MD - 07/04/2023 9:17 AM EDT Images from the original note were not included. INITIAL OB ASSESSMENT OB Provider: Nae Costa MD HPI: Rola is a 27 year old single White Female here to establish Obstetrical Care. Patient's last menstrual period was 01/30/2023 (exact date). from OB Dating Form. Cycles regular was unplanned but accepted. She has known she was but didn't have time to get care. She was hospitalized with a crohns flare in april and did see boiler out and had an ultrasound confirming dates. She is not on any meds for her crohns. She has seen different providers for it. She has an ileostomy and hasn't had any issues. 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 She has had setons in the past. She has an appt with Dr. Thakkar next month. She did not have the ileostomy with her first . Diff FOB. He has no children. She has had worsening migraines. Caffeine increases her anxiety. No relief with tylenol. She has also had a lot of anxiety and was given atarax for it prn. She has never been on a daily med. +FM Denies ctx, vb, lof. OB History T1 L1 SAB0 IAB0 Ectopic0 Multiple0 Live Births1 Previous history: Denies any issues but baby was 5etn5er at 40 weeks Prior : never History of 4th degree laceration: No History of shoulder dystocia: No History of Hypertensive disorders including pre-eclampsia, chronic hypertension or gestational hypertension: No History of gestational diabetes: No Patient's Risk Screening for delivery: Have you had a prior mondragon between 20w and 36w6d?: No MEDICAL/PSYCHOSOCIAL HISTORY: History of hemorrhage or bleeding concerns: yes, required transfusion with crohns surgery but isnt sure. No issues with Thyroid Disease: No History of chronic hypertension: No History of pre-existing diabetes: No ABO/RH(D) Date Value Ref Range Status 09/12/2018 B POSITIVE Final BMI 31.47 kg/(m^2) History of abnormal pap: No Prior treatment for cervical dysplasia: none. History of STDs: HPV Tobacco use: No Caffeine use: Yes Drug use: No Alcohol use: No Multivitamin with Folic acid: Yes Confucianist or heritage: No Would refuse blood transfusion if medically necessary: No Are you currently employed? Yes, Occupation: [employer] Do you have any history of depression, anxiety, PTSD, eating disorders or other mood problems: anxiety Do you have any safety concerns or history of traumatic events that you would like to discuss with your provider: No SDOH Screening: How often does this describe you? I don't have enough money to pay my bills: Rarely Within the past 12 months, have you worried that your food would run out before you had money to buy more: Never In the past 12 months, has lack of reliable transportation kept you from going to medical appointments or work, or from keeping things needed for daily living: Never In the past 12 months, have you had any concerns about having a place to live, or about the condition or quality of your housing: Never Are there any cultural or spiritual needs we should be aware of: No Depression/Anxiety Screening: denies symptoms of depression. OB Depression and Anxiety Screening- This Encounter (since 07/03/2023) Over the past 2 weeks have you felt down, depressed, or hopeless? Negative Over the past two weeks, have you felt little interest or pleasure in doing things? Negative Feeling nervous, anxious or on edge 3-Nearly every day Not being able to stop or control worrying 1-Several days Anxiety Pre-Screening Total (If >/= 3 additional questions will be reviewed) 4 Worrying too much about different things 3-Nearly every day Trouble relaxing 3-Nearly every day Being so restless that it is hard to sit still 1-Several days Becoming easily annoyed or irritable 3-Nearly every day Feeling afraid, as if something awful might happen 3-Nearly every day Anxiety (PARMINDER) Full Screening Total 17 Genetic Screening: Partner present: No Patient verbalized knowledge of partner family health history: No Do you or your partner have any personal or family history of defects not previously discussed: No Do you have history of a complicated by anomaly, genetic condition, or demise: No ACOG Recommended Screening Screening for early gestational diabetes testing: Criteria for early testing requires elevated BMI plus one other risk factor: BMI 31.47 kg/(m^2) (risk factor if > than 25 or 23 in Americans) Additional risk factors: None She does not meet ACOG criteria for early gestational DM screening. 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 PAST SURGICAL HISTORY OF 08/26/2018 Exam under anesthesia, flexible sigmoidoscopy, incision and drainage of deep postanal space abscess, seton and drain placement. PAST SURGICAL HISTORY OF iliostomy Current Outpatient Medications Medication Sig Dispense Refill ondansetron orally disintegrating (ZOFRAN ODT) 4 mg disintegrating tablet TAKE 1 TABLET BY MOUTH EVERY 8 HOURS NEEDED FOR NAUSEA AND VOMITING VIT 91-[facility]-RYKID-DHA ORAL Take by mouth. No current facility-administered medications for this visit. Allergies As of Date: 07/04/2023 (No Known Allergies) Fully Assessed 07/04/2023 Does patient have penicillin allergy: No REVIEW OF SYSTEMS: GENERAL: Positive for: Fatigue HEENT: headache NECK: Negative for: Swelling, Pain, Stiffness RESPIRATORY: Negative for: Shortness of breath GASTROINTESTINAL: see HPI MUSCULOSKELETAL: Negative for: Muscle or joint pain, stiffness, Joint swelling NEUROLOGIC/PSYCHIATRIC: anxiety, headaches SKIN: Negative for: Rash, Itching GENITOURINARY: Negative for: vaginal itching, vaginal discharge, hematuria or dysuria PHYSICAL EXAM: BP 120/74 Pulse 81 Ht 5' 6 (1.68m) Wt 195 lb (88.5kg) LMP 01/30/2023 BMI 31.49 kg/(m^2). GENERAL: pleasant in no apparent distress DERMATOLOGY: Normal, without lesions, non-icteric, and non-hirsute NECK: Supple, full range of motion, no adenopathy, and thyroid normal CHEST: Normal inspiratory effort BREAST: soft, non-tender, symmetric, no dominant mass, normal nipple-areolar complex, no lymphadenopathy, and no nipple discharge ABDOMEN: soft, non-tender, and no masses;ileostomy bag noted- skin around it healthy NEURO: exam grossly non-focal PELVIS: External genitalia normal without lesions. Perineal body intact. No vaginal or cervical lesions. Cervix closed. No adnexal masses or tenderness. GC/chl done. Scars noted perianally Clinical Pelvimetry: Pelvimetry clinically assessed as adequate Limited OB ultrasound exam: +FHR OB Risk Screening: Completed, no positive findings documented. SBIRT Rola Aguilar was given the 4P's screening tool. Rola answered as follows: OB Opioid Screening - Last Recorded (since 10/07/2022) Did any of your parents have a problem with alcohol or other drug use? Yes Father with drugs Does your partner have a problem with alcohol or other drug use? No In the past, have you had difficulties in your life because of alcohol or other drugs, including prescription medications? No In the past month have you drunk any alcohol or used other drugs? No Are you taking medication for pain during the either prescribed or not? No Based on the screen and further questions, she is considered at Low risk due to:Low level of use stopped prior to or immediately upon known . Positive reinforcement of current behavior. Plan to rescreen early third trimester. Nae Costa MD ASSESSMENT: 27 year old at 22w1d wks gestational age PLAN: 1) Patient oriented to practice. Patient given new OB orientation folder. Discussed nutrition, folic acid supplementation, dietary guidelines, exercise, smoking, alcohol, caffeine, and drug use. Discussed routine OB labs including STD/HIV. Discussed aneuploidy and carrier screening. Regarding aneuploidy screening, nuchal translucency/first trimester early anatomy ultrasound and NIPT were discussed. Regarding carrier screening, the myriad screen was discussed. The risks/benefits and limitations of NIPT/aneuploidy screening were reviewed including the potential for false negative and false positive results. We discussed the availability of professional-society guided carrier screening and reviewed the conditions screened and limitations of screening. The availability of genetic counseling was reviewed. Information on aneuploidy/carrier screening was provided. The patient chooses: Aneuploidy screening: chooses to proceed with NIPT (10 weeks) and Carrier screening: Accepts Discussed hemoglobin electrophoresis. Patient: Accepts 2) Crohns- encouraged to follow up with Dr. Thakkar. Considering fistula history would recommend csection but will await his recommendations. MFM consult as well. No meds at this time. Nl weight gain. Will watch serial growth scans. 3) anatomy scan ordered. 4)headaches-periactin/reglan ordered 5)Anxiety-rec follow up with . Will place consult 6)flu shot today Follow up in 4 weeks or sooner prn. 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 [facility] Hospital Discharge instructions Patient Education 05/25/2023 23:07:00 Crohn's Disease Crohn's Disease Crohn's disease is a long-lasting (chronic) disease that affects the gastrointestinal (GI) tract. Crohn's disease often causes irritation and inflammation in the small intestine and the beginning of the large intestine, but it can affect any part of the GI tract. Crohn's disease is part of a group o f illnesses that are known as inflammatory bowel disease (IBD). Crohn's disease may start slowly and get worse over time. Symptoms may come and go. They may also go away for months or even years at a time (remission). What are the causes? The exact cause of this condition is not known. It may involve a response that causes your body's disease-fighting system (immune system) to attack healthy cells and tissues (autoimmune response). Bacteria, genes, and your environment may also play a role. What increases the risk? The following factors may make you more likely to develop this condition: Having a family member who has Crohn's disease, another IBD, or an autoimmune condition. Using products that contain nicotine or tobacco, such as cigarettes and e-cigarettes. Being in your 20s. Having Eastern ancestry. What are the signs or symptoms? The main symptoms of this condition involve your GI tract. These include: Diarrhea. Pain or cramping in the abdomen commonly felt in the lower right side of the abdomen. Frequent watery or bloody stools. Constipation. This may mean having: ?Fewer bowel movements in a week than normal. ?Difficulty having a bowel movement. ?Stools that are dry, hard, or larger than normal. Rectal bleeding or pain. An urgent need to have a bowel movement. The feeling that you are not finished having a bowel movement. Other symptoms may include: Unexplained weight loss. Tiredness (fatigue). Fever. Nausea or appetite loss. Joint pain. Vision changes. Red bumps or sores on the skin. Sores inside the mouth. How is this diagnosed? This condition may be diagnosed based on: Your symptoms and medical history. A physical exam. Tests, which may include: ?Blood tests. ?Stool sample tests. ?Imaging tests, such as X-rays and CT scans. ?Tests to examine the inside of your intestines using a long, flexible tube that has a light and a camera on the end (colonoscopy). ?A procedure to remove tissue samples from inside your bowel for testing (biopsy). You may need to work with a health care provider who specializes in diseases of the digestive tract(clinical radiologist). How is this treated? There is no cure for this condition, and it affects each person differently. Treatment can help youmanage your symptoms. Your treatment may include: Medicines. These may be used by themselves or with other treatments (combination therapy). You may be given medicines that help to: ?Reduce inflammation. ?Control your immune system activity. ?Fight infections. ?Relieve cramps and prevent diarrhea. ?Control your pain. Surgery. You may need surgery if: ?Medicines and other treatments are not working anymore. ?You develop complications from severe Crohn's disease. ?A section of your intestine becomes so damaged that it needs to be removed. Lifestyle changes: ?Maintaining eating or drinking restrictions. ?Reducing or eliminating use of alcohol or nicotine. Follow these instructions at home: Medicines Take bbcv-nhp-[id number] and prescription medicines only as told by your health care provider. If you were prescribed an antibiotic, take it as told by your health care provider. Do not stop taking the antibiotic even if you start to feel better. Avoid taking ibuprofen or other NSAID medicines if possible. These can make Crohn's disease worse. Eating and drinking Talk with your health care provider or a registered dietitian about what diet is best for you. Drink enough fluid to keep your urine pale yellow. If you are taking steroids to reduce inflammation, get plenty of calcium in your diet to help keep your bones healthy. You may also consider taking a calcium supplement with vitamin D. Keep a food diary to identify foods that make your symptoms better or worse, and avoid foods that cause symptoms. Follow instructions from your health care provider about eating or drinking restrictions if you have worsening symptoms (flare-up). If you drink alcohol: ?Limit how much you have to: ?0 1 drink a day for women who are not . ?0 2 drinks a day for men. ?Know how much alcohol is in a drink. In the [place] one drink equals one 12 oz bottle of beer (355 mL), one 5 oz glass of wine (148 mL), or one 1 oz glass of hard liquor (44 mL). General instructions Make sure you get all the vaccines that your health care provider recommends, especially pneumonia (pneumococcal) and flu (influenza) vaccines. Do not use any products that contain nicotine or tobacco. These products include cigarettes, chewing tobacco, and vaping devices, such as e-cigarettes. If you need help quitting, ask your health careprovider. Exercise every day, or as often as told by your health care provider. Keep all follow-up visits. This is important. Contact a health care provider if: You have diarrhea, cramps in your abdomen, and other GI problems that are present almost all the time. Your symptoms do not improve with treatment, your symptoms get worse, or you develop new symptoms. You cannot pass stools. You continue to lose weight. You develop a rash or sores on your skin. You develop eye problems. You have a fever. Get help right away if: You have bloody diarrhea. You have severe pain in your abdomen. These symptoms may be an emergency. Get help right away. Call 911. Do not wait to see if the symptoms will go away. Do not drive yourself to the hospital. Summary Crohn's disease affects each person differently. The cause of this condition is not known, but it may involve a response that causes your body's immune system to attack healthy cells and tissues. There are multiple treatment options that can help you manage the condition. Talk with your health care provider or a registered dietitian about what diet is best for you. Make sure you get all the vaccines that your health care provider recommends, especially pneumonia (pneumococcal) and flu (influenza) vaccines. Get help right away if you have bloody diarrhea or severe pain in your abdomen. This information is not intended to replace advice given to you by your health care provider. Make sure you discuss any questions you have with your health care provider. Document Revised: 03/15/2022 Document Reviewed: 03/15/2022 [employer] Patient Education 2022 [employer]. Follow Up Care 05/25/2023 18:51:31 With:Ja Bhardwaj Address: [address] [facility], [address] [address]- [phone] Business (1) When:05/28/2023 With:Kale RENDON Address: [address] [place] [address]- Business (1) When:Within 3 Day(s) [facility]09-02-2023 Evaluation + Plan note Diagnostic Tests Pending * Urine Culture 05/25/23 [facility]08-08-2023 History of Past illness Narrative* Problem Noted Date Diagnosed Date Resolved Date 13 weeks gestation of 04/30/2023 07/04/2023 History of endoscopy 02/04/2023 023 Overview: 01/18/23: Moderate to severe inflammed mucosa was seen in the colon. Biopsied. Findings: On entering throught the stoma, mucosa appeared colonic. No entrance into the ileum was found. A diffuse area of inflammad mucosa in the colon starting at 25cm from stoma was found. This was moderately erythematous with superficial ulcerations. Inflammation was moderately severe from 25-60cm from the stoma and improved from 75cm and beyond. Psuedopolyps were seen from 55-60cm. This was biopsied with a cold forceps for histology. A. Colon, random, biopsy: - Colonic mucosa with patchy active chronic colitis with focal erosion and reactive epithelial changes.- Focal mucosal base granulomata. - No dysplasia seen. 2020: Impression:Seton noted. Diversion colitis. - Rectal tenderness found on digital rectal exam. - Friability with no bleeding in the entire examined colon. Biopsied. - Simple Endoscopic Score for Crohn's Disease: 13, mucosal inflammatory changes secondary to Crohn's disease with colonic involvement vs diversion colitis. Biopsied. 09/20/2020: Impression:- Preparation of the colon was fair. Procedur aborted/incomplete in the mid-transverse colon due to large stool ball precluding visulaization and further advancement of the scope. 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 - Stricture at the anus and in the distal rectum. - Simple Endoscopic Score for Crohn's Disease: 12, mucosal inflammatory changes secondary to Crohn's disease. Biopsied. - Multiple polyps in the entire colon. Biopsied. - Overall, picture consistent with diversion colitis and inflammatory polyps likely in the setting of healed up colitis. Hypomagnesemia 09/11/2018 09/12/2018 Last Assessment & Plan: Assessment: PLAN: Replete if <1.7 Hyponatremia 09/11/2018 09/12/2018 Last Assessment & Plan: Assessment: PLAN: Replete if <136 Malnutrition of mild degree 09/11/2018 01/21/2023 Abdominal pain 09/10/2018 01/21/2023 Last Assessment & Plan: Assessment: PLAN: Cdiff PCR +, Iv and PO antibiotics antibiotics Continue anxiolytics and analgesics Consult to behavioral medicine and psychiatry Would like to take to OR for Diverting loop ileosostomy, seton drain placement EUA tomorrow Bowel prep today, clears for dinner, NPO at midnigth UPT and T&S. Replace Elytes as needed Encourage OOb and ambulation and IS No skilled C needs at this time. Crohn's colitis 09/09/2018 02/04/2023 Overview: Added automatically from request for surgery [id number] Crohn's disease (regional enteritis) 08/22/2018 02/04/2023 Overview: Added automatically from request for surgery [id number] documented as of this encounter (statuses as of 07/05/2023) [facility] of Past illness Narrative* Problem Noted Date Diagnosed Date Resolved Date 13 weeks gestation of 04/30/2023 07/04/2023 History of endoscopy 02/04/2023 023 Overview: 01/18/23: Moderate to severe inflammed mucosa was seen in the colon. Biopsied. Findings: On entering throught the stoma, mucosa appeared colonic. No entrance into the ileum was found. A diffuse area of inflammad mucosa in the colon starting at 25cm from stoma was found. This was moderately erythematous with superficial ulcerations. Inflammation was moderately severe from 25-60cm from the stoma and improved from 75cm and beyond. Psuedopolyps were seen from 55-60cm. This was biopsied with a cold forceps for histology. A. Colon, random, biopsy: - Colonic mucosa with patchy active chronic colitis with focal erosion and reactive epithelial changes.- Focal mucosal base granulomata. - No dysplasia seen. 2020: Impression:Seton noted. Diversion colitis. - Rectal tenderness found on digital rectal exam. - Friability with no bleeding in the entire examined colon. Biopsied. - Simple Endoscopic Score for Crohn's Disease: 13, mucosal inflammatory changes secondary to Crohn's disease with colonic involvement vs diversion colitis. Biopsied. 09/20/2020: Impression:- Preparation of the colon was fair. Procedur aborted/incomplete in the mid-transverse colon due to large stool ball precluding visulaization and further advancement of the scope. 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 - Stricture at the anus and in the distal rectum. - Simple Endoscopic Score for Crohn's Disease: 12, mucosal inflammatory changes secondary to Crohn's disease. Biopsied. - Multiple polyps in the entire colon. Biopsied. - Overall, picture consistent with diversion colitis and inflammatory polyps likely in the setting of healed up colitis. Hypomagnesemia 09/11/2018 09/12/2018 Last Assessment & Plan: Assessment: PLAN: Replete if <1.7 Hyponatremia 09/11/2018 09/12/2018 Last Assessment & Plan: Assessment: PLAN: Replete if <136 Malnutrition of mild degree 09/11/2018 01/21/2023 Abdominal pain 09/10/2018 01/21/2023 Last Assessment & Plan: Assessment: PLAN: Cdiff PCR +, Iv and PO antibiotics antibiotics Continue anxiolytics and analgesics Consult to behavioral medicine and psychiatry Would like to take to OR for Diverting loop ileosostomy, seton drain placement EUA tomorrow Bowel prep today, clears for dinner, NPO at midnigth UPT and T&S. Replace Elytes as needed Encourage OOb and ambulation and IS No skilled [facility] needs at this time. Crohn's colitis 09/09/2018 02/04/2023 Overview: Added automatically from request for surgery [id number] Crohn's disease (regional enteritis) 08/22/2018 02/04/2023 Overview: Added automatically from request for surgery [id number] documented as of this encounter (statuses as of 07/05/2023) [facility] History of Past illness Narrative* Problem Noted Date Diagnosed Date Resolved Date 13 weeks gestation of 04/30/2023 07/04/2023 History of endoscopy 02/04/2023 023 Overview: 01/18/23: Moderate to severe inflammed mucosa was seen in the colon. Biopsied. Findings: On entering throught the stoma, mucosa appeared colonic. No entrance into the ileum was found. A diffuse area of inflammad mucosa in the colon starting at 25cm from stoma was found. This was moderately erythematous with superficial ulcerations. Inflammation was moderately severe from 25-60cm from the stoma and improved from 75cm and beyond. Psuedopolyps were seen from 55-60cm. This was biopsied with a cold forceps for histology. A. Colon, random, biopsy: - Colonic mucosa with patchy active chronic colitis with focal erosion and reactive epithelial changes.- Focal mucosal base granulomata. - No dysplasia seen. 2020: Impression:Seton noted. Diversion colitis. - Rectal tenderness found on digital rectal exam. - Friability with no bleeding in the entire examined colon. Biopsied. - Simple Endoscopic Score for Crohn's Disease: 13, mucosal inflammatory changes secondary to Crohn's disease with colonic involvement vs diversion colitis. Biopsied. 09/20/2020: Impression:- Preparation of the colon was fair. Procedur aborted/incomplete in the mid-transverse colon due to large stool ball precluding visulaization and further advancement of the scope. 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 - Stricture at the anus and in the distal rectum. - Simple Endoscopic Score for Crohn's Disease: 12, mucosal inflammatory changes secondary to Crohn's disease. Biopsied. - Multiple polyps in the entire colon. Biopsied. - Overall, picture consistent with diversion colitis and inflammatory polyps likely in the setting of healed up colitis. Hypomagnesemia 09/11/2018 09/12/2018 Last Assessment & Plan: Assessment: PLAN: Replete if <1.7 Hyponatremia 09/11/2018 09/12/2018 Last Assessment & Plan: Assessment: PLAN: Replete if <136 Malnutrition of mild degree 09/11/2018 01/21/2023 Abdominal pain 09/10/2018 01/21/2023 Last Assessment & Plan: Assessment: PLAN: Cdiff PCR +, Iv and PO antibiotics antibiotics Continue anxiolytics and analgesics Consult to behavioral medicine and psychiatry Would like to take to OR for Diverting loop ileosostomy, seton drain placement EUA tomorrow Bowel prep today, clears for dinner, NPO at midnigth UPT and T&S. Replace Elytes as needed Encourage OOb and ambulation and IS No skilled [facility] needs at this time. Crohn's colitis 09/09/2018 02/04/2023 Overview: Added automatically from request for surgery [id number] Crohn's disease (regional enteritis) 08/22/2018 02/04/2023 Overview: Added automatically from request for surgery [id number] documented as of this encounter (statuses as of 07/05/2023) [facility] History of Past illness Narrative* Problem Noted Date Diagnosed Date Resolved Date 13 weeks gestation of 04/30/2023 07/04/2023 History of endoscopy 02/04/2023 023 Overview: 01/18/23: Moderate to severe inflammed mucosa was seen in the colon. Biopsied. Findings: On entering throught the stoma, mucosa appeared colonic. No entrance into the ileum was found. A diffuse area of inflammad mucosa in the colon starting at 25cm from stoma was found. This was moderately erythematous with superficial ulcerations. Inflammation was moderately severe from 25-60cm from the stoma and improved from 75cm and beyond. Psuedopolyps were seen from 55-60cm. This was biopsied with a cold forceps for histology. A. Colon, random, biopsy: - Colonic mucosa with patchy active chronic colitis with focal erosion and reactive epithelial changes.- Focal mucosal base granulomata. - No dysplasia seen. 2020: Impression:Seton noted. Diversion colitis. - Rectal tenderness found on digital rectal exam. - Friability with no bleeding in the entire examined colon. Biopsied. - Simple Endoscopic Score for Crohn's Disease: 13, mucosal inflammatory changes secondary to Crohn's disease with colonic involvement vs diversion colitis. Biopsied. 09/20/2020: Impression:- Preparation of the colon was fair. Procedur aborted/incomplete in the mid-transverse colon due to large stool ball precluding visulaization and further advancement of the scope. 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 - Stricture at the anus and in the distal rectum. - Simple Endoscopic Score for Crohn's Disease: 12, mucosal inflammatory changes secondary to Crohn's disease. Biopsied. - Multiple polyps in the entire colon. Biopsied. - Overall, picture consistent with diversion colitis and inflammatory polyps likely in the setting of healed up colitis. Hypomagnesemia 09/11/2018 09/12/2018 Last Assessment & Plan: Assessment: PLAN: Replete if <1.7 Hyponatremia 09/11/2018 09/12/2018 Last Assessment & Plan: Assessment: PLAN: Replete if <136 Malnutrition of mild degree 09/11/2018 01/21/2023 Abdominal pain 09/10/2018 01/21/2023 Last Assessment & Plan: Assessment: PLAN: Cdiff PCR +, Iv and PO antibiotics antibiotics Continue anxiolytics and analgesics Consult to behavioral medicine and psychiatry Would like to take to OR for Diverting loop ileosostomy, seton drain placement EUA tomorrow Bowel prep today, clears for dinner, NPO at midnigth UPT and T&S. Replace Elytes as needed Encourage OOb and ambulation and IS No skilled [facility] needs at this time. Crohn's colitis 09/09/2018 02/04/2023 Overview: Added automatically from request for surgery [id number] Crohn's disease (regional enteritis) 08/22/2018 02/04/2023 Overview: Added automatically from request for surgery [id number] documented as of this encounter (statuses as of 07/08/2023) [facility] History of Past illness Narrative* Problem Noted Date Diagnosed Date Resolved Date 13 weeks gestation of 04/30/2023 07/04/2023 History of endoscopy 02/04/2023 023 Overview: 01/18/23: Moderate to severe inflammed mucosa was seen in the colon. Biopsied. Findings: On entering throught the stoma, mucosa appeared colonic. No entrance into the ileum was found. A diffuse area of inflammad mucosa in the colon starting at 25cm from stoma was found. This was moderately erythematous with superficial ulcerations. Inflammation was moderately severe from 25-60cm from the stoma and improved from 75cm and beyond. Psuedopolyps were seen from 55-60cm. This was biopsied with a cold forceps for histology. A. Colon, random, biopsy: - Colonic mucosa with patchy active chronic colitis with focal erosion and reactive epithelial changes.- Focal mucosal base granulomata. - No dysplasia seen. 2020: Impression:Seton noted. Diversion colitis. - Rectal tenderness found on digital rectal exam. - Friability with no bleeding in the entire examined colon. Biopsied. - Simple Endoscopic Score for Crohn's Disease: 13, mucosal inflammatory changes secondary to Crohn's disease with colonic involvement vs diversion colitis. Biopsied. 09/20/2020: Impression:- Preparation of the colon was fair. Procedur aborted/incomplete in the mid-transverse colon due to large stool ball precluding visulaization and further advancement of the scope. 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 - Stricture at the anus and in the distal rectum. - Simple Endoscopic Score for Crohn's Disease: 12, mucosal inflammatory changes secondary to Crohn's disease. Biopsied. - Multiple polyps in the entire colon. Biopsied. - Overall, picture consistent with diversion colitis and inflammatory polyps likely in the setting of healed up colitis. Hypomagnesemia 09/11/2018 09/12/2018 Last Assessment & Plan: Assessment: PLAN: Replete if <1.7 Hyponatremia 09/11/2018 09/12/2018 Last Assessment & Plan: Assessment: PLAN: Replete if <136 Malnutrition of mild degree 09/11/2018 01/21/2023 Abdominal pain 09/10/2018 01/21/2023 Last Assessment & Plan: Assessment: PLAN: Cdiff PCR +, Iv and PO antibiotics antibiotics Continue anxiolytics and analgesics Consult to behavioral medicine and psychiatry Would like to take to OR for Diverting loop ileosostomy, seton drain placement EUA tomorrow Bowel prep today, clears for dinner, NPO at midnigth UPT and T&S. Replace Elytes as needed Encourage OOb and ambulation and IS No skilled C needs at this time. Crohn's colitis 09/09/2018 02/04/2023 Overview: Added automatically from request for surgery [id number] Crohn's disease (regional enteritis) 08/22/2018 02/04/2023 Overview: Added automatically from request for surgery [id number] documented as of this encounter (statuses as of 07/08/2023) [facility] History of Past illness Narrative* Problem Noted Date Diagnosed Date Resolved Date 13 weeks gestation of 04/30/2023 07/04/2023 History of endoscopy 02/04/2023 023 Overview: 01/18/23: Moderate to severe inflammed mucosa was seen in the colon. Biopsied. Findings: On entering throught the stoma, mucosa appeared colonic. No entrance into the ileum was found. A diffuse area of inflammad mucosa in the colon starting at 25cm from stoma was found. This was moderately erythematous with superficial ulcerations. Inflammation was moderately severe from 25-60cm from the stoma and improved from 75cm and beyond. Psuedopolyps were seen from 55-60cm. This was biopsied with a cold forceps for histology. A. Colon, random, biopsy: - Colonic mucosa with patchy active chronic colitis with focal erosion and reactive epithelial changes.- Focal mucosal base granulomata. - No dysplasia seen. 2020: Impression:Seton noted. Diversion colitis. - Rectal tenderness found on digital rectal exam. - Friability with no bleeding in the entire examined colon. Biopsied. - Simple Endoscopic Score for Crohn's Disease: 13, mucosal inflammatory changes secondary to Crohn's disease with colonic involvement vs diversion colitis. Biopsied. 09/20/2020: Impression:- Preparation of the colon was fair. Procedur aborted/incomplete in the mid-transverse colon due to large stool ball precluding visulaization and further advancement of the scope. 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 - Stricture at the anus and in the distal rectum. - Simple Endoscopic Score for Crohn's Disease: 12, mucosal inflammatory changes secondary to Crohn's disease. Biopsied. - Multiple polyps in the entire colon. Biopsied. - Overall, picture consistent with diversion colitis and inflammatory polyps likely in the setting of healed up colitis. Hypomagnesemia 09/11/2018 09/12/2018 Last Assessment & Plan: Assessment: PLAN: Replete if <1.7 Hyponatremia 09/11/2018 09/12/2018 Last Assessment & Plan: Assessment: PLAN: Replete if <136 Malnutrition of mild degree 09/11/2018 01/21/2023 Abdominal pain 09/10/2018 01/21/2023 Last Assessment & Plan: Assessment: PLAN: Cdiff PCR +, Iv and PO antibiotics antibiotics Continue anxiolytics and analgesics Consult to behavioral medicine and psychiatry Would like to take to OR for Diverting loop ileosostomy, seton drain placement EUA tomorrow Bowel prep today, clears for dinner, NPO at midnigth UPT and T&S. Replace Elytes as needed Encourage OOb and ambulation and IS No skilled C needs at this time. Crohn's colitis 09/09/2018 02/04/2023 Overview: Added automatically from request for surgery [id number] Crohn's disease (regional enteritis) 08/22/2018 02/04/2023 Overview: Added automatically from request for surgery [id number] documented as of this encounter (statuses as of 07/24/2023) [facility] History of Past illness Narrative* Problem Noted Date Diagnosed Date Resolved Date 13 weeks gestation of 04/30/2023 07/04/2023 History of endoscopy 02/04/2023 023 Overview: 01/18/23: Moderate to severe inflammed mucosa was seen in the colon. Biopsied. Findings: On entering throught the stoma, mucosa appeared colonic. No entrance into the ileum was found. A diffuse area of inflammad mucosa in the colon starting at 25cm from stoma was found. This was moderately erythematous with superficial ulcerations. Inflammation was moderately severe from 25-60cm from the stoma and improved from 75cm and beyond. Psuedopolyps were seen from 55-60cm. This was biopsied with a cold forceps for histology. A. Colon, random, biopsy: - Colonic mucosa with patchy active chronic colitis with focal erosion and reactive epithelial changes.- Focal mucosal base granulomata. - No dysplasia seen. 2020: Impression:Seton noted. Diversion colitis. - Rectal tenderness found on digital rectal exam. - Friability with no bleeding in the entire examined colon. Biopsied. - Simple Endoscopic Score for Crohn's Disease: 13, mucosal inflammatory changes secondary to Crohn's disease with colonic involvement vs diversion colitis. Biopsied. 09/20/2020: Impression:- Preparation of the colon was fair. Procedur aborted/incomplete in the mid-transverse colon due to large stool ball precluding visulaization and further advancement of the scope. 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 - Stricture at the anus and in the distal rectum. - Simple Endoscopic Score for Crohn's Disease: 12, mucosal inflammatory changes secondary to Crohn's disease. Biopsied. - Multiple polyps in the entire colon. Biopsied. - Overall, picture consistent with diversion colitis and inflammatory polyps likely in the setting of healed up colitis. Hypomagnesemia 09/11/2018 09/12/2018 Last Assessment & Plan: Assessment: PLAN: Replete if <1.7 Hyponatremia 09/11/2018 09/12/2018 Last Assessment & Plan: Assessment: PLAN: Replete if <136 Malnutrition of mild degree 09/11/2018 01/21/2023 Abdominal pain 09/10/2018 01/21/2023 Last Assessment & Plan: Assessment: PLAN: Cdiff PCR +, Iv and PO antibiotics antibiotics Continue anxiolytics and analgesics Consult to behavioral medicine and psychiatry Would like to take to OR for Diverting loop ileosostomy, seton drain placement EUA tomorrow Bowel prep today, clears for dinner, NPO at midnigth UPT and T&S. Replace Elytes as needed Encourage OOb and ambulation and IS No skilled [facility] needs at this time. Crohn's colitis 09/09/2018 02/04/2023 Overview: Added automatically from request for surgery [id number] Crohn's disease (regional enteritis) 08/22/2018 02/04/2023 Overview: Added automatically from request for surgery [id number] documented as of this encounter (statuses as of 07/25/2023) [facility] Miscellaneous Notes* Telephone Encounter - Araceli Choudhury MD - 04/30/2023 12:05 AM EDT [facility] transfer to [facility] 27 yo female with a PMH of crohn's disease, currently 13 weeks , has had 2 weeks of LLQ pain, seen at [facility] twice, recommended admission but 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 She has had worsening N/V, unable to hold down PO intake, now having more significant diarrhea. Alsoc/o palpitations. Labs unremarkable. Had US showing no complications. Requesting transfer to [facility] for GI and OB consultations and management. Accepted pending bed availability. Patient may need to board at [facility] awaiting bed - discussed to have GI consulted in that event. Araceli Choudhury MD 04/30/2023 12:05AM [facility] NoteHNO ID: [id number] Author: Maddie Ashraf RDMS, RVT Service: Radiology Author Type: Critical Care Paramedic Type: Progress Notes Filed: 04/29/2023 7:13 PM Note Text: Radiology Service Progress Note PATIENT NAME: Rola Aguilar DATE OF SERVICE: April 29, 2023 TIME: 7:13 PM PATIENT IDENTITY VERIFICATION COMPLETED USING TWO (2) IDENTIFIERS: Name and Date of confirmed by patient verbally and Name and Date of confirmed by identification band. FALL SCREENING: Has the patient had 2 falls in the last year or 1 fall with injury or currently using an Ambulatory Assistive Device (Walker, Cane, Wheelchair, Crutches, etc.)? Emergency Room Patient: Screened in ED PATIENT GENDER DATA: Female. status: : Yes. Urinalysis hCG results are as follows: Positive status: N/A PATIENT RELEVANT IMPLANT DATA REVIEWED: Not Applicable RADIOLOGY DEPARTMENT: Ultrasound PERIPHERAL IV DATA: Not applicable SIGNED BY: Maddie Ashraf RDMS, RVFiona April 29, 2023 7:13 [id number] Evaluation + Plan noteExtracted from: Title:ED Note Author:Jess Gunn PA-C Date:04/27/23 1. Abdominal pain in female (R10.9: Unspecified abdominal pain) 2. (Z34.90: Encounter for supervision of normal , unspecified, unspecified trimester) 3. Nausea & vomiting (R11.2: Nausea with vomiting, unspecified) Orders: metoclopramide, 10 mg = 1 tab(s), Oral, q6hr, PRN Nausea/Vomiting, # 30 tab(s), Refills(s) 0, Pharmacy: [id number], 167.6, cm, 04/26/23 22:31:00 EDT, Height/Length Dosing, 87, kg, 04/26/23 22:31:00 EDT, Weight Dosing morphine, 2 mg = 1 mL, Injection, IV Push, Once, Stop date 04/27/23 0:08:00 EDT, STAT, Start date 04/27/23 0:08:00 EDT, 04/27/23 0:08:00 EDT ondansetron, 4 mg = 2 mL, Injection, IV Push, Once, Stop date 04/27/23 0:08:00 EDT, STAT, Start date 04/27/23 0:08:00 EDT, 04/27/23 0:08:00 EDT Sodium Chloride 0.9% intravenous solution 1,000 mL, 1,000 mL, IV, 1,000 mL/hr, STAT, Start date 04/27/23 0:08:00 EDT, 1 hour(s), Total volume (mL): 1,000, 87 kg, 2.01, m2 Saline Lock Insert [facility]08-05-2023 Hospital Discharge instructions Patient Education 04/27/2023 03:09:00 Second Trimester of , Ewut-qu-Asbt Second Trimester of The second trimester of is from week 13 through week 27. This is also called months 4 through 6 of . This is often the time when you feel your best. During the second trimester: Morning sickness is less or has stopped. You may have more energy. You may feel hungry more often. At this time, your unborn baby (fetus) is growing very fast. At the end of the sixth month, the unborn baby may be up to 12 inches long and weigh about 1 pounds. You will likely start to feel the baby move between 16 and 20 weeks of . Body changes during your second trimester Your body continues to go through many changes during this time. The changes vary and generally return to normal after the baby is born. Physical changes You will gain more weight. You may start to get stretch ponce on your hips, belly (abdomen), and breasts. Your breasts will grow and may hurt. Dark spots or blotches may develop on your face. A dark line from your belly button to the pubic area (linea nigra) may appear. You may have changes in your hair. Health changes You may have headaches. You may have heartburn. You may have trouble pooping (constipation). You may have hemorrhoids or swollen, bulging veins (varicose veins). Your gums may bleed. You may pee (urinate) more often. You may have back pain. Follow these instructions at home: Medicines Take hksq-wvn-yvgbtmp and prescription medicines only as told by your doctor. Some medicines are not safe during . Take a vitamin that contains at least 600 micrograms (mcg) of folic acid. Eating and drinking Eat healthy meals that include: ?Fresh fruits and vegetables. ?Whole grains. ?Good sources of protein, such as meat, eggs, or tofu. ?Low-fat dairy products. Avoid raw meat and unpasteurized juice, milk, and cheese. You may need to take these actions to prevent or treat trouble pooping: ?Drink enough fluids to keep your pee (urine) pale yellow. ?Eat foods that are high in fiber. These include beans, whole grains, and fresh fruits and vegetables. ?Limit foods that are high in fat and sugar. These include fried or sweet foods. Activity Exercise only as told by your doctor. Most people can do their usual exercise during . Tryto exercise for 30 minutes at least 5 days a week. Stop exercising if you have pain or cramps in your belly or lower back. Do not exercise if it is too hot or too humid, or if you are in a place of great height (high altitude). Avoid heavy lifting. If you choose to, you may have sex unless your doctor tells you not to. Relieving pain and discomfort Wear a good support bra if your breasts are sore. Take warm water baths (sitz baths) to soothe pain or discomfort caused by hemorrhoids. Use hemorrhoid cream if your doctor approves. Rest with your legs raised (elevated) if you have leg cramps or low back pain. If you develop bulging veins in your legs: ?Wear support hose as told by your doctor. ?Raise your feet for 15 minutes, 3 4 times a day. ?Limit salt in your food. Safety Wear your seat belt at all times when you are in a car. Talk with your doctor if someone is hurting you or yelling at you a lot. Lifestyle Do not use hot tubs, steam rooms, or saunas. Do not douche. Do not use tampons or scented sanitary pads. Avoid cat litter boxes and soil used by cats. These carry germs that can harm your baby and can cause a loss of your baby by miscarriage or stillbirth. Do not use herbal medicines, illegal drugs, or medicines that are not approved by your doctor. Do not drink alcohol. Do not smoke or use any products that contain nicotine or tobacco. If you need help quitting, ask your doctor. General instructions Keep all follow-up visits. This is important. Ask your doctor about local classes. Ask your doctor about the right foods to eat or for help finding a counselor. Where to find more information [place] Association: americanpregnancy.org [place] [employer]: www.acog.org Office on Women's Health: womenshealth.gov/ Contact a doctor if: You have a headache that does not go away when you take medicine. You have changes in how you see, or you see spots in front of your eyes. You have mild cramps, pressure, or pain in your lower belly. You continue to feel like you may vomit (nauseous), you vomit, or you have watery poop (diarrhea). You have bad-smelling fluid coming from your vagina. You have pain when you pee or your pee smells bad. You have very bad swelling of your face, hands, ankles, feet, or legs. You have a fever. Get help right away if: You are leaking fluid from your vagina. You have spotting or bleeding from your vagina. You have very bad belly cramping or pain. You have trouble breathing. You have chest pain. You faint. You have not felt your baby move for the time period told by your doctor. You have new or increased pain, swelling, or redness in an arm or leg. Summary The second trimester of is from week 13 through week 27 (months 4 through 6). Eat healthy meals. Exercise as told by your doctor. Most people can do their usual exercise during . Do not use herbal medicines, illegal drugs, or medicines that are not approved by your doctor. Do not drink alcohol. Call your doctor if you get sick or if you notice anything unusual about your . This information is not intended to replace advice given to you by your health care provider. Make sure you discuss any questions you have with your health care provider. Document Revised: 02/15/2021 Document Reviewed: 12/22/2020 [employer] Patient Education 2022 [employer]. 04/27/2023 03:09:00 Crohn's Disease Crohn's Disease Crohn's disease is a long-lasting (chronic) disease that affects the gastrointestinal (GI) tract. Crohn's disease often causes irritation and inflammation in the small intestine and the beginning of the large intestine, but it can affect any part of the GI tract. Crohn's disease is part of a group o f illnesses that are known as inflammatory bowel disease (IBD). Crohn's disease may start slowly and get worse over time. Symptoms may come and go. They may also go away for months or even years at a time (remission). What are the causes? The exact cause of this condition is not known. It may involve a response that causes your body's disease-fighting system (immune system) to attack healthy cells and tissues (autoimmune response). Bacteria, genes, and your environment may also play a role. What increases the risk? The following factors may make you more likely to develop this condition: Having a family member who has Crohn's disease, another IBD, or an autoimmune condition. Using products that contain nicotine or tobacco, such as cigarettes and e-cigarettes. Being in your 20s. Having Eastern ancestry. What are the signs or symptoms? The main symptoms of this condition involve your GI tract. These include: Diarrhea. Pain or cramping in the abdomen commonly felt in the lower right side of the abdomen. Frequent watery or bloody stools. Constipation. This may mean having: ?Fewer bowel movements in a week than normal. ?Difficulty having a bowel movement. ?Stools that are dry, hard, or larger than normal. Rectal bleeding or pain. An urgent need to have a bowel movement. The feeling that you are not finished having a bowel movement. Other symptoms may include: Unexplained weight loss. Tiredness (fatigue). Fever. Nausea or appetite loss. Joint pain. Vision changes. Red bumps or sores on the skin. Sores inside the mouth. How is this diagnosed? This condition may be diagnosed based on: Your symptoms and medical history. A physical exam. Tests, which may include: ?Blood tests. ?Stool sample tests. ?Imaging tests, such as X-rays and CT scans. ?Tests to examine the inside of your intestines using a long, flexible tube that has a light and a camera on the end (colonoscopy). ?A procedure to remove tissue samples from inside your bowel for testing (biopsy). You may need to work with a health care provider who specializes in diseases of the digestive tract(clinical radiologist). How is this treated? There is no cure for this condition, and it affects each person differently. Treatment can help youmanage your symptoms. Your treatment may include: Medicines. These may be used by themselves or with other treatments (combination therapy). You may be given medicines that help to: ?Reduce inflammation. ?Control your immune system activity. ?Fight infections. ?Relieve cramps and prevent diarrhea. ?Control your pain. Surgery. You may need surgery if: ?Medicines and other treatments are not working anymore. ?You develop complications from severe Crohn's disease. ?A section of your intestine becomes so damaged that it needs to be removed. Lifestyle changes: ?Maintaining eating or drinking restrictions. ?Reducing or eliminating use of alcohol or nicotine. Follow these instructions at home: Medicines Take bzny-btd-selgcxt and prescription medicines only as told by your health care provider. If you were prescribed an antibiotic, take it as told by your health care provider. Do not stop taking the antibiotic even if you start to feel better. Avoid taking ibuprofen or other NSAID medicines if possible. These can make Crohn's disease worse. Eating and drinking Talk with your health care provider or a registered dietitian about what diet is best for you. Drink enough fluid to keep your urine pale yellow. If you are taking steroids to reduce inflammation, get plenty of calcium in your diet to help keep your bones healthy. You may also consider taking a calcium supplement with vitamin D. Keep a food diary to identify foods that make your symptoms better or worse, and avoid foods that cause symptoms. Follow instructions from your health care provider about eating or drinking restrictions if you have worsening symptoms (flare-up). If you drink alcohol: ?Limit how much you have to: ?0 1 drink a day for women who are not . ?0 2 drinks a day for men. ?Know how much alcohol is in a drink. In the [place] one drink equals one 12 oz bottle of beer (355 mL), one 5 oz glass of wine (148 mL), or one 1 oz glass of hard liquor (44 mL). General instructions Make sure you get all the vaccines that your health care provider recommends, especially pneumonia (pneumococcal) and flu (influenza) vaccines. Do not use any products that contain nicotine or tobacco. These products include cigarettes, chewing tobacco, and vaping devices, such as e-cigarettes. If you need help quitting, ask your health careprovider. Exercise every day, or as often as told by your health care provider. Keep all follow-up visits. This is important. Contact a health care provider if: You have diarrhea, cramps in your abdomen, and other GI problems that are present almost all the time. Your symptoms do not improve with treatment, your symptoms get worse, or you develop new symptoms. You cannot pass stools. You continue to lose weight. You develop a rash or sores on your skin. You develop eye problems. You have a fever. Get help right away if: You have bloody diarrhea. You have severe pain in your abdomen. These symptoms may be an emergency. Get help right away. Call 911. Do not wait to see if the symptoms will go away. Do not drive yourself to the hospital. Summary Crohn's disease affects each person differently. The cause of this condition is not known, but it may involve a response that causes your body's immune system to attack healthy cells and tissues. There are multiple treatment options that can help you manage the condition. Talk with your health care provider or a registered dietitian about what diet is best for you. Make sure you get all the vaccines that your health care provider recommends, especially pneumonia (pneumococcal) and flu (influenza) vaccines. Get help right away if you have bloody diarrhea or severe pain in your abdomen. This information is not intended to replace advice given to you by your health care provider. Make sure you discuss any questions you have with your health care provider. Document Revised: 03/15/2022 Document Reviewed: 03/15/2022 [employer] Patient Education 2022 [employer]. 04/27/2023 03:09:00 Abdominal Pain, Adult, Dhah-yu-Trra Abdominal Pain, Adult Many things can cause belly (abdominal) pain. Most times, belly pain is not dangerous. Many cases of belly pain can be watched and treated at home. Sometimes, though, belly pain is serious. Your doctor will try to find the cause of your belly pain. Follow these instructions at home: Medicines Take wcec-iwl-cvelocs and prescription medicines only as told by your doctor. Do not take medicines that help you poop (laxatives) unless told by your doctor. General instructions Watch your belly pain for any changes. Drink enough fluid to keep your pee (urine) pale yellow. Keep all follow-up visits as told by your doctor. This is important. Contact a doctor if: Your belly pain changes or gets worse. You are not hungry, or you lose weight without trying. You are having trouble pooping (constipated) or have watery poop (diarrhea) for more than 2 3 days. You have pain when you pee or poop. Your belly pain wakes you up at night. Your pain gets worse with meals, after eating, or with certain foods. You are vomiting and cannot keep anything down. You have a fever. You have blood in your pee. Get help right away if: Your pain does not go away as soon as your doctor says it should. You cannot stop vomiting. Your pain is only in areas of your belly, such as the right side or the left lower part of the belly. You have bloody or black poop, or poop that looks like tar. You have very bad pain, cramping, or bloating in your belly. You have signs of not having enough fluid or water in your body (dehydration), such as: ?Dark pee, very little pee, or no pee. ?Cracked lips. ?Dry mouth. ?Sunken eyes. ?Sleepiness. ?Weakness. You have trouble breathing or chest pain. Summary Many cases of belly pain can be watched and treated at home. Watch your belly pain for any changes. Take dqhp-lad-nlpkunw and prescription medicines only as told by your doctor. Contact a doctor if your belly pain changes or gets worse. Get help right away if you have very bad pain, cramping, or bloating in your belly. This information is not intended to replace advice given to you by your health care provider. Make sure you discuss any questions you have with your health care provider. Document Revised: 01/18/2020 Document Reviewed: 01/18/2020 [employer] Patient Education 2022 [employer] Follow Up Care 04/26/2023 22:11:15 With:Follow up with Dr Ozuna at [facility] Address:Unknown When:04/30/2023 [facility]07-27-2023 Miscellaneous Notes* Telephone Encounter - Yfn Alex APRN.CNP - 04/18/2023 11:53 AM EDTSummary: Recent ER visit- care coordination I received a message from Fernanda Kramer DO, who is a resident in the ED. Please see message below from Fernanda regarding patient's case: Abhi Almaguer! I am one of the residents taking care of Rola here in the ED at [facility]. I apologize if you are off today, but she is here with abdominal pain. We wanted to admit her for a Crohn's flare and for pain control in the setting of being 11 weeks , but she is unable to stay due to childcare problems. She is going to be signing out AMA from the ED, but we wanted to reach out regarding whether or no we should prescribe her a Prednisone taper. I saw that she was recently on one, so I wanted to check with you and your team first. I told her it was okay to do a prednisone taper since our options are limited for IBD patients. She checked if the patient had started IFX or Imuran, and the patient has not started either of these medications. I reached out to Dr. Lagos to update her. I also reached out to ELVIRA Hdz, to help schedule a follow up with either myself or Dr. Lagos in the next 1-2 weeks to check in. Yfn Alex APRN.CNP April 18, 2023 12:01 PM documented in this encounterAvita [facility] System07-24-[facility]23 Evaluation + Plan note Extracted from: Title:ED Note Author:Carolyn Mcmahon M.D. te:04/15/23 1. Abdominal pain (R10.9: Un specified abdominal pain) 2. Exacerbation of Crohn's disease (K50.90: Crohn's disease, unspecified, without complications) Orders: morphine, 4 mg = 2 mL, Injection, IV Push, Once, Stop date 04/15/23 0:05:00 EDT, STAT, Start date 04/15/23 0:05:00 EDT, 07/24/23 0:05:00 EDT ondansetron, 4 mg = 2 mL, Injection, IV Push, Once, Stop date 04/15/23 0:05:00 EDT, STAT, Start date 04/15/23 0:05:00 EDT, 04/15/23 0:05:00 EDT Sodium Chloride 0.9% intravenous solution, 1,000 mL, Soln-IV, IV, Once, Stop date 04/15/23 0:05:00 EDT, STAT, Start date 04/15/23 0:05:00 EDT, Infuse over 61, minute(s) Automated Diff Basic Metabolic Panel CBC w/ Auto Diff eGFR Hepatic Function Panel Lipase Level Magnesium Level PT & PTT UA With Cult Reflex [facility]07-24-2023 Hospital Discharge instructions Patient Education 04/15/2023 01:12:27 Crohn's Disease Crohn's Disease Crohn's disease is a long-lasting (chronic) disease that affects the gastrointestinal (GI) tract. Crohn's disease often causes irritation and inflammation in the small intestine and the beginning of the large intestine, but it can affect any part of the GI tract. Crohn's disease is part of a group o f illnesses that are known as inflammatory bowel disease (IBD). Crohn's disease may start slowly and get worse over time. Symptoms may come and go. They may also go away for months or even years at a time (remission). What are the causes? The exact cause of this condition is not known. It may involve a response that causes your body's disease-fighting system (immune system) to attack healthy cells and tissues (autoimmune response). Bacteria, genes, and your environment may also play a role. What increases the risk? The following factors may make you more likely to develop this condition: Having a family member who has Crohn's disease, another IBD, or an autoimmune condition. Using products that contain nicotine or tobacco, such as cigarettes and e-cigarettes. Being in your 20s. Having Eastern ancestry. What are the signs or symptoms? The main symptoms of this condition involve your GI tract. These include: Diarrhea. Pain or cramping in the abdomen commonly felt in the lower right side of the abdomen. Frequent watery or bloody stools. Constipation. This may mean having: ?Fewer bowel movements in a week than normal. ?Difficulty having a bowel movement. ?Stools that are dry, hard, or larger than normal. Rectal bleeding or pain. An urgent need to have a bowel movement. The feeling that you are not finished having a bowel movement. Other symptoms may include: Unexplained weight loss. Tiredness (fatigue). Fever. Nausea or appetite loss. Joint pain. Vision changes. Red bumps or sores on the skin. Sores inside the mouth. How is this diagnosed? This condition may be diagnosed based on: Your symptoms and medical history. A physical exam. Tests, which may include: ?Blood tests. ?Stool sample tests. ?Imaging tests, such as X-rays and CT scans. ?Tests to examine the inside of your intestines using a long, flexible tube that has a light and a camera on the end (colonoscopy). ?A procedure to remove tissue samples from inside your bowel for testing (biopsy). You may need to work with a health care provider who specializes in diseases of the digestive tract(clinical radiologist). How is this treated? There is no cure for this condition, and it affects each person differently. Treatment can help youmanage your symptoms. Your treatment may include: Medicines. These may be used by themselves or with other treatments (combination therapy). You may be given medicines that help to: ?Reduce inflammation. ?Control your immune system activity. ?Fight infections. ?Relieve cramps and prevent diarrhea. ?Control your pain. Surgery. You may need surgery if: ?Medicines and other treatments are not working anymore. ?You develop complications from severe Crohn's disease. ?A section of your intestine becomes so damaged that it needs to be removed. Lifestyle changes: ?Maintaining eating or drinking restrictions. ?Reducing or eliminating use of alcohol or nicotine. Follow these instructions at home: Medicines Take xjhs-prw-yixnmce and prescription medicines only as told by your health care provider. If you were prescribed an antibiotic, take it as told by your health care provider. Do not stop taking the antibiotic even if you start to feel better. Avoid taking ibuprofen or other NSAID medicines if possible. These can make Crohn's disease worse. Eating and drinking Talk with your health care provider or a registered dietitian about what diet is best for you. Drink enough fluid to keep your urine pale yellow. If you are taking steroids to reduce inflammation, get plenty of calcium in your diet to help keep your bones healthy. You may also consider taking a calcium supplement with vitamin D. Keep a food diary to identify foods that make your symptoms better or worse, and avoid foods that cause symptoms. Follow instructions from your health care provider about eating or drinking restrictions if you have worsening symptoms (flare-up). If you drink alcohol: ?Limit how much you have to: ?0 1 drink a day for women who are not . ?0 2 drinks a day for men. ?Know how much alcohol is in a drink. In the [place] one drink equals one 12 oz bottle of beer (355 mL), one 5 oz glass of wine (148 mL), or one 1 oz glass of hard liquor (44 mL). General instructions Make sure you get all the vaccines that your health care provider recommends, especially pneumonia (pneumococcal) and flu (influenza) vaccines. Do not use any products that contain nicotine or tobacco. These products include cigarettes, chewing tobacco, and vaping devices, such as e-cigarettes. If you need help quitting, ask your health careprovider. Exercise every day, or as often as told by your health care provider. Keep all follow-up visits. This is important. Contact a health care provider if: You have diarrhea, cramps in your abdomen, and other GI problems that are present almost all the time. Your symptoms do not improve with treatment, your symptoms get worse, or you develop new symptoms. You cannot pass stools. You continue to lose weight. You develop a rash or sores on your skin. You develop eye problems. You have a fever. Get help right away if: You have bloody diarrhea. You have severe pain in your abdomen. These symptoms may be an emergency. Get help right away. Call 911. Do not wait to see if the symptoms will go away. Do not drive yourself to the hospital. Summary Crohn's disease affects each person differently. The cause of this condition is not known, but it may involve a response that causes your body's immune system to attack healthy cells and tissues. There are multiple treatment options that can help you manage the condition. Talk with your health care provider or a registered dietitian about what diet is best for you. Make sure you get all the vaccines that your health care provider recommends, especially pneumonia (pneumococcal) and flu (influenza) vaccines. Get help right away if you have bloody diarrhea or severe pain in your abdomen. This information is not intended to replace advice given to you by your health care provider. Make sure you discuss any questions you have with your health care provider. Document Revised: 03/15/2022 Document Reviewed: 03/15/2022 [employer] Patient Education 2022 [employer]. 04/15/2023 01:12:27 Abdominal Pain, Adult Abdominal Pain, Adult Pain in the abdomen (abdominal pain) can be caused by many things. Often, abdominal pain is not serious and it gets better with no treatment or by being treated at home. However, sometimes abdominal pain is serious. Your health care provider will ask questions about your medical history and do a physical exam to try to determine the cause of your abdominal pain. Follow these instructions at home: Medicines Take jlvm-kvz-pkgocqa and prescription medicines only as told by your health care provider. Do not take a laxative unless told by your health care provider. General instructions Watch your condition for any changes. Drink enough fluid to keep your urine pale yellow. Keep all follow-up visits as told by your health care provider. This is important. Contact a health care provider if: Your abdominal pain changes or gets worse. You are not hungry or you lose weight without trying. You are constipated or have diarrhea for more than 2 3 days. You have pain when you urinate or have a bowel movement. Your abdominal pain wakes you up at night. Your pain gets worse with meals, after eating, or with certain foods. You are vomiting and cannot keep anything down. You have a fever. You have blood in your urine. Get help right away if: Your pain does not go away as soon as your health care provider told you to expect. You cannot stop vomiting. Your pain is only in areas of the abdomen, such as the right side or the left lower portion of the abdomen. Pain on the right side could be caused by appendicitis. You have bloody or black stools, or stools that look like tar. You have severe pain, cramping, or bloating in your abdomen. You have signs of dehydration, such as: ?Dark urine, very little urine, or no urine. ?Cracked lips. ?Dry mouth. ?Sunken eyes. ?Sleepiness. ?Weakness. You have trouble breathing or chest pain. Summary Often, abdominal pain is not serious and it gets better with no treatment or by being treated at home. However, sometimes abdominal pain is serious. Watch your condition for any changes. Take ubnj-chf-cniqlft and prescription medicines only as told by your health care provider. Contact a health care provider if your abdominal pain changes or gets worse. Get help right away if you have severe pain, cramping, or bloating in your abdomen. This information is not intended to replace advice given to you by your health care provider. Make sure you discuss any questions you have with your health care provider. Document Revised: 10/28/2020 Document Reviewed: 01/18/2020 [employer] Patient Education 2022 [employer]. Follow Up Care 04/14/2023 23:41:14 With:Kale RENDON Address: [address] [place], [place] [id number] [facility] (1) When:04/18/2023 Comments:Make sure to follow-up with your GI as instructed. Return to the emergency room if your pain gets worse, vomiting, vaginal bleeding or any new symptoms. [facility]07-23-2023 History of Present illness Narrative* Courtney Swann RN - 04/14/2023 10:11 AM EDTSumblaire: Abstract Rola Aguilar Age 27 Female ([place], [place]) Crohn's disease Referral 27 y/o female diagnosed with Crohn s disease in 2013 effecting ileal and colonic intestinal diease with perianal disease. She has failed biologic therapies in the past. S/p I&D w/seton placement 08/26/2018, S/p Lx creation of DLI 09/10/2018. Since then she was placed on ustekinumab (stelara) upuntil ~2022 and had been experiencing ongoing issues with stoma prolapse. She is currently working with GI for insurance approval to begin infliximab infusions. Prior Medications/Reason for Switch Thiopurines: No Methotrexate: Yes Biologics: Ustekinumab started in 2016. Adalibumab failed 2017 after about 2 years Small molecules: No Previous Encounters 10/14/20 Office Visit w/Dr. Tai Assessment and Plan: Rola Aguilar is a 25 year old female with h/o perianal Crohn's disease as well as pancolitis s/p laparoscopic DLI 08/2018, here today for ileostomy prolapse follow up. Always reduces on own eventually (may be whole day), no obstructive symptoms with episodes (distal limb that prolapses). Stoma appliance issues have resolved, now able to easily pouch prolapse. GI saw patient 09/21/2020 s/p colonoscopy 09/20. Unable to be completed (stopped at transverse), wai repeated. Moderate strictures in anus and rectum. No acute inflammation, but rectum, left, and transverse colon with no ulcerations, 50-75% affected with multiple narrowings. MRE to be completed this week. Remains on Stelara q8 weeks with no recent flares. Demanding stoma reversal. Understands that she is unlikely to have good long- term function with reversal, but still wants to proceed. -Consented for ileostomy reversal, GINA -Will think about whether she wants to see Dr. Lewis for possible stem cell treatment for fistula. Understands that fistula will have stool drainage if reversed and probably more likely to have success if performed before stoma closure -Colonoscopy under general anesthesia next week. -MRE to be scheduled. -To be discussed at IBD conference prior to final decision to proceed with stoma reversal. May consider alternate medical management pending GI recommendations, patient amenable to this. - again counseled about importance of weight loss Diagnostics/Endoscopy Reviewed 01/20/23 MRE ABD/PEL Impression Possible mild inflammatory change of the terminal ileum, distal to the ileostomy. Otherwise, no active inflammatory small bowel Crohn's disease. Probable mild inflammatory changes of the mid to distal descending colon. Persistent active perianal disease, similar to prior CT although improved from prior MRI. No perianal abscess. 01/18/23 Ileoscopy- Dr. Zhane Quinones Findings: -On entering throught the stoma, mucosa appeared colonic. No entrance into the ileum was found. -A diffuse area of inflammad mucosa in the colon starting at 25cm from stoma was found. This was moderately erythematous with superficial ulcerations. Inflammation was moderately severe from 25-60cm from the stoma and improved from 75cm and beyond. Psuedopolyps were seen from 55-60cm. This was biopsied with a cold forceps for histology. 01/18/23 Colonoscopy- Dr. Zhane Quinones Findings: Discontinuous areas of nonbleeding ulcerated mucosa with stigmata of recent bleeding were present in the sigmoid colon as seen on ileoscopy. No additional biopsies were taken as they were taken during the ileoscopy. 01/16/23 CT ABD/PEL WIVCON Impression No bowel obstruction. Mild descending colon diversion colitis. 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 No active inflammatory small bowel Crohn's disease involving the small bowel proximal to the ileostomy. Persistent active perianal disease as detailed, although improved since 09/10/2018. 10/20/2020 Colonoscopy w/Dr. Kern Impression: Seton noted. Diversion colitis. - Rectal tenderness found on digital rectal exam. - Friability with no bleeding in the entire examined colon. Biopsied. - Simple Endoscopic Score for Crohn's Disease: 13, mucosal inflammatory changes secondary to Crohn's disease with colonic involvement vs diversion colitis. Biopsied. Surgical pathology FINAL DIAGNOSIS 1. Transverse colon, biopsy (A) - Patchy active colitis. 2. Left colon, biopsy (B) - Patchy active colitis. 3. Rectum, biopsy (C) - Colonic mucosa with patchy neutrophilic inflammation in the lamina propria. 10/14/2020 OV w/Dr. Tai Assessment and Plan Rola Aguilar is a 25 year old female with h/o perianal Crohn's disease as well as pancolitis s/p laparoscopic DLI 08/2018, here today for ileostomy prolapse follow up. Always reduces on own eventually (may be whole day), no obstructive symptoms with episodes (distal limb that prolapses). Stoma appliance issues have resolved, now able to easily pouch prolapse. GI saw patient 09/21/2020 s/p colonoscopy 09/20. Unable to be completed (stopped at transverse), wai repeated. Moderate strictures in anus and rectum. No acute inflammation, but rectum, left, and transverse colon with no ulcerations, 50-75% affected with multiple narrowings. MRE to be completed this week. Remains on Stelara q8 weeks with no recent flares. Demanding stoma reversal. Understands that she is unlikely to have good long- term function with reversal, but still wants to proceed. -Consented for ileostomy reversal, EUA -Will think about whether she wants to see Dr. Lewis for possible stem cell treatment for fistula. Understands that fistula will have stool drainage if reversed and probably more likely to have success if performed before stoma closure -Colonoscopy under general anesthesia next week. -MRE to be scheduled. -To be discussed at IBD conference prior to final decision to proceed with stoma reversal. May consider alternate medical management pending GI recommendations, patient amenable to this. - again counseled about importance of weight loss documented in this encounterAv[facility]07-14-2023 Miscellaneous Notes* Telephone Encounter - Sara Larry - 04/05/2023 12:20 PM EDT I left voice message and sent my-chart message for patient to call and schedule. Thanks Sara Houston * Telephone Encounter - Qing Ulrich RPh - 04/05/2023 9:09 AM EDT IBD PharmD Appt Called pt as no-show. No reply, left VM. Will send PSR team a message to help r/s and also [facility] Carehart message. documented in this encounterAvita [facility] System06-18-2023 Hospital Discharge instructions Patient Education 03/10/2023 21:34:08 First Trimester of , Hgke-il-Xqnx First Trimester of The first trimester of starts on the first day of your last menstrual period until the end of week 12. This is also called months 1 through 3 of . Body changes during your first trimester Your body goes through many changes during . The changes usually return to normal after your baby is born. Physical changes You may gain or lose weight. Your breasts may grow larger and hurt. The area around your nipples may get darker. Dark spots or blotches may develop on your face. You may have changes in your hair. Health changes You may feel like you might vomit (nauseous), and you may vomit. You may have heartburn. You may have headaches. You may have trouble pooping (constipation). Your gums may bleed. Other changes You may get tired easily. You may pee (urinate) more often. Your menstrual periods will stop. You may not feel hungry. You may want to eat certain kinds of food. You may have changes in your emotions from day to day. You may have more dreams. Follow these instructions at home: Medicines Take twkh-xce-qkoivku and prescription medicines only as told by your doctor. Some medicines are not safe during . Take a vitamin that contains at least 600 micrograms (mcg) of folic acid. Eating and drinking Eat healthy meals that include: ?Fresh fruits and vegetables. ?Whole grains. ?Good sources of protein, such as meat, eggs, or tofu. ?Low-fat dairy products. Avoid raw meat and unpasteurized juice, milk, and cheese. If you feel like you may vomit, or you vomit: ?Eat 4 or 5 small meals a day instead of 3 large meals. ?Try eating a few soda crackers. ?Drink liquids between meals instead of during meals. You may need to take these actions to prevent or treat trouble pooping: ?Drink enough fluids to keep your pee (urine) pale yellow. ?Eat foods that are high in fiber. These include beans, whole grains, and fresh fruits and vegetables. ?Limit foods that are high in fat and sugar. These include fried or sweet foods. Activity Exercise only as told by your doctor. Most people can do their usual exercise routine during . Stop exercising if you have cramps or pain in your lower belly (abdomen) or low back. Do not exercise if it is too hot or too humid, or if you are in a place of great height (high altitude). Avoid heavy lifting. If you choose to, you may have sex unless your doctor tells you not to. Relieving pain and discomfort Wear a good support bra if your breasts are sore. Rest with your legs raised (elevated) if you have leg cramps or low back pain. If you have bulging veins (varicose veins) in your legs: ?Wear support hose as told by your doctor. ?Raise your feet for 15 minutes, 3 4 times a day. ?Limit salt in your food. Safety Wear your seat belt at all times when you are in a car. Talk with your doctor if someone is hurting you or yelling at you. Talk with your doctor if you are feeling sad or have thoughts of hurting yourself. Lifestyle Do not use hot tubs, steam rooms, or saunas. Do not douche. Do not use tampons or scented sanitary pads. Do not use herbal medicines, illegal drugs, or medicines that are not approved by your doctor. Do not drink alcohol. Do not smoke or use any products that contain nicotine or tobacco. If you need help quitting, ask your doctor. Avoid cat litter boxes and soil that is used by cats. These carry germs that can cause harm to the baby and can cause a loss of your baby by miscarriage or stillbirth. General instructions Keep all follow-up visits. This is important. Ask for help if you need counseling or if you need help with nutrition. Your doctor can give you advice or tell you where to go for help. Visit your dentist. At home, brush your teeth with a soft toothbrush. Floss gently. Write down your questions. Take them to your visits. Where to find more information [place] [employer]: americanpregnancy.org [place] [employer]: www.acog.org Office on Women's Health: womenshealth.gov/ Contact a doctor if: You are dizzy. You have a fever. You have mild cramps or pressure in your lower belly. You have a nagging pain in your belly area. You continue to feel like you may vomit, you vomit, or you have watery poop (diarrhea) for 24 hoursor longer. You have a bad-smelling fluid coming from your vagina. You have pain when you pee. You are exposed to a disease that spreads from person to person, such as chickenpox, measles, Zika virus, HIV, or hepatitis. Get help right away if: You have spotting or bleeding from your vagina. You have very bad belly cramping or pain. You have shortness of breath or chest pain. You have any kind of injury, such as from a fall or a car crash. You have new or increased pain, swelling, or redness in an arm or leg. Summary The first trimester of starts on the first day of your last menstrual period until the end of week 12 (months 1 through 3). Eat 4 or 5 small meals a day instead of 3 large meals. Do not smoke or use any products that contain nicotine or tobacco. If you need help quitting, ask your doctor. Keep all follow-up visits. This information is not intended to replace advice given to you by your health care provider. Make sure you discuss any questions you have with your health care provider. Document Revised: 02/15/2021 Document Reviewed: 12/22/2020 [employer] Patient Education 2022 [employer]. 03/10/2023 21:34:08 Crohn's Disease Crohn's Disease Crohn's disease is a long-lasting (chronic) disease that affects the gastrointestinal (GI) tract. Crohn's disease often causes irritation and inflammation in the small intestine and the beginning of the large intestine, but it can affect any part of the GI tract. Crohn's disease is part of a group o f illnesses that are known as inflammatory bowel disease (IBD). Crohn's disease may start slowly and get worse over time. Symptoms may come and go. They may also go away for months or even years at a time (remission). What are the causes? The exact cause of this condition is not known. It may involve a response that causes your body's disease-fighting system (immune system) to attack healthy cells and tissues (autoimmune response). Bacteria, genes, and your environment may also play a role. What increases the risk? The following factors may make you more likely to develop this condition: Having a family member who has Crohn's disease, another IBD, or an autoimmune condition. Using products that contain nicotine or tobacco, such as cigarettes and e-cigarettes. Being in your 20s. Having Eastern ancestry. What are the signs or symptoms? The main symptoms of this condition involve your GI tract. These include: Diarrhea. Pain or cramping in the abdomen commonly felt in the lower right side of the abdomen. Frequent watery or bloody stools. Constipation. This may mean having: ?Fewer bowel movements in a week than normal. ?Difficulty having a bowel movement. ?Stools that are dry, hard, or larger than normal. Rectal bleeding or pain. An urgent need to have a bowel movement. The feeling that you are not finished having a bowel movement. Other symptoms may include: Unexplained weight loss. Tiredness (fatigue). Fever. Nausea or appetite loss. Joint pain. Vision changes. Red bumps or sores on the skin. Sores inside the mouth. How is this diagnosed? This condition may be diagnosed based on: Your symptoms and medical history. A physical exam. Tests, which may include: ?Blood tests. ?Stool sample tests. ?Imaging tests, such as X-rays and CT scans. ?Tests to examine the inside of your intestines using a long, flexible tube that has a light and a camera on the end (colonoscopy). ?A procedure to remove tissue samples from inside your bowel for testing (biopsy). You may need to work with a health care provider who specializes in diseases of the digestive tract(clinical radiologist). How is this treated? There is no cure for this condition, and it affects each person differently. Treatment can help youmanage your symptoms. Your treatment may include: Medicines. These may be used by themselves or with other treatments (combination therapy). You may be given medicines that help to: ?Reduce inflammation. ?Control your immune system activity. ?Fight infections. ?Relieve cramps and prevent diarrhea. ?Control your pain. Surgery. You may need surgery if: ?Medicines and other treatments are not working anymore. ?You develop complications from severe Crohn's disease. ?A section of your intestine becomes so damaged that it needs to be removed. Lifestyle changes: ?Maintaining eating or drinking restrictions. ?Reducing or eliminating use of alcohol or nicotine. Follow these instructions at home: Medicines Take yeqn-oof-iciertm and prescription medicines only as told by your health care provider. If you were prescribed an antibiotic, take it as told by your health care provider. Do not stop taking the antibiotic even if you start to feel better. Avoid taking ibuprofen or other NSAID medicines if possible. These can make Crohn's disease worse. Eating and drinking Talk with your health care provider or a registered dietitian about what diet is best for you. Drink enough fluid to keep your urine pale yellow. If you are taking steroids to reduce inflammation, get plenty of calcium in your diet to help keep your bones healthy. You may also consider taking a calcium supplement with vitamin D. Keep a food diary to identify foods that make your symptoms better or worse, and avoid foods that cause symptoms. Follow instructions from your health care provider about eating or drinking restrictions if you have worsening symptoms (flare-up). If you drink alcohol: ?Limit how much you have to: ?0 1 drink a day for women who are not . ?0 2 drinks a day for men. ?Know how much alcohol is in a drink. In the [place] one drink equals one 12 oz bottle of beer (355 mL), one 5 oz glass of wine (148 mL), or one 1 oz glass of hard liquor (44 mL). General instructions Make sure you get all the vaccines that your health care provider recommends, especially pneumonia (pneumococcal) and flu (influenza) vaccines. Do not use any products that contain nicotine or tobacco. These products include cigarettes, chewing tobacco, and vaping devices, such as e-cigarettes. If you need help quitting, ask your health careprovider. Exercise every day, or as often as told by your health care provider. Keep all follow-up visits. This is important. Contact a health care provider if: You have diarrhea, cramps in your abdomen, and other GI problems that are present almost all the time. Your symptoms do not improve with treatment, your symptoms get worse, or you develop new symptoms. You cannot pass stools. You continue to lose weight. You develop a rash or sores on your skin. You develop eye problems. You have a fever. Get help right away if: You have bloody diarrhea. You have severe pain in your abdomen. These symptoms may be an emergency. Get help right away. Call 911. Do not wait to see if the symptoms will go away. Do not drive yourself to the hospital. Summary Crohn's disease affects each person differently. The cause of this condition is not known, but it may involve a response that causes your body's immune system to attack healthy cells and tissues. There are multiple treatment options that can help you manage the condition. Talk with your health care provider or a registered dietitian about what diet is best for you. Make sure you get all the vaccines that your health care provider recommends, especially pneumonia (pneumococcal) and flu (influenza) vaccines. Get help right away if you have bloody diarrhea or severe pain in your abdomen. This information is not intended to replace advice given to you by your health care provider. Make sure you discuss any questions you have with your health care provider. Document Revised: 03/15/2022 Document Reviewed: 03/15/2022 [employer] Patient Education 2022 [employer]. 03/10/2023 21:34:08 Abdominal Pain, Adult, Klxu-ie-Efez Abdominal Pain, Adult Many things can cause belly (abdominal) pain. Most times, belly pain is not dangerous. Many cases of belly pain can be watched and treated at home. Sometimes, though, belly pain is serious. Your doctor will try to find the cause of your belly pain. Follow these instructions at home: Medicines Take oakn-jxi-zskedoc and prescription medicines only as told by your doctor. Do not take medicines that help you poop (laxatives) unless told by your doctor. General instructions Watch your belly pain for any changes. Drink enough fluid to keep your pee (urine) pale yellow. Keep all follow-up visits as told by your doctor. This is important. Contact a doctor if: Your belly pain changes or gets worse. You are not hungry, or you lose weight without trying. You are having trouble pooping (constipated) or have watery poop (diarrhea) for more than 2 3 days. You have pain when you pee or poop. Your belly pain wakes you up at night. Your pain gets worse with meals, after eating, or with certain foods. You are vomiting and cannot keep anything down. You have a fever. You have blood in your pee. Get help right away if: Your pain does not go away as soon as your doctor says it should. You cannot stop vomiting. Your pain is only in areas of your belly, such as the right side or the left lower part of the belly. You have bloody or black poop, or poop that looks like tar. You have very bad pain, cramping, or bloating in your belly. You have signs of not having enough fluid or water in your body (dehydration), such as: ?Dark pee, very little pee, or no pee. ?Cracked lips. ?Dry mouth. ?Sunken eyes. ?Sleepiness. ?Weakness. You have trouble breathing or chest pain. Summary Many cases of belly pain can be watched and treated at home. Watch your belly pain for any changes. Take vwgc-dpp-euajrud and prescription medicines only as told by your doctor. Contact a doctor if your belly pain changes or gets worse. Get help right away if you have very bad pain, cramping, or bloating in your belly. This information is not intended to replace advice given to you by your health care provider. Make sure you discuss any questions you have with your health care provider. Document Revised: 01/18/2020 Document Reviewed: 01/18/2020 [facility] Patient Education 2022 [employer]. Follow Up Care 03/10/2023 17:24:22 With:Anoop Lopez Address: [address], [facility] [address] [place] [address]- Business (1) When:03/13/2023 21:16:08 Comments:Follow-up with Dr. Lopez for further evaluation of your . With:Vanessa Carver Address: [address] [place] [address]- Business (1) When:03/13/2023 21:16:00 Comments:Follow-up with your primary care provider in 3 to 5 days. If symptoms worsen, do not improve, or new symptoms arise please report back to emergency department for further evaluation. [facility]06-18-2023 Evaluation + Plan note Diagnostic Tests Pending * Urine Culture 03/10/23 [facility]06-14-2023 Miscellaneous Notes* Telephone Encounter - Ted Brito RN - 03/06/2023 11:34 AM EDT Pa submitted will follow up as needed, * Telephone Encounter - Corinne Mendoza - 03/06/2023 9:18 AM EDTSummary: Cortifoam 10% foam requires PA Received fax (scanned into [employer]) on 03/05/2023 informing of Cortifoam 10% foam requires PA. To complete PA, visit [facility] and use NELSON: [id number] Corinne Mendoza [facility] Miscellaneous Notes* Telephone Encounter - Ted Brito RN - 03/05/2023 11:23 AM EDT ----- Message from Rut Lagos MD sent at 02/04/2023 10:30 AM EDT ----- Planning to start this patient on IFX and Imuran combination treatment for crohn's disease [facility] History of Present illness Narrative* Rut Lagos MD - 02/04/2023 8:30 AM EDT NAME: Rola Aguilar [facility] NO: [id number] REASON FOR VISIT Rola Aguilar is a 27 year old female who is scheduled for a consult at the request of . Patient presents with: New Patient: Crohn's PRESENTING COMPLAINT: Establish care HISTORY OF PRESENTING ILLNESS: This is a 27 years old female with history of SB/LB CD with perianalinvolvement presented in clinic today to establish care. -Recent discharge from hospital 01/08-01/21 for abdominal pain, bleeding and stool per rectum. Underwent MRE and MRI pelvis, ileoscopy and colonoscopy which shows active inflammation involving small and large intestine. +inflammation in the cele anal fistula tract. Started on IVCS and now on PO prednisone taper -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 She was treated with PDN, ADA from 5687-8577, lost response due to development of AB, UST from 6928-5966 lost insurance and was not on medications. 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 No medications since then. Current Clinical Symptoms # of bowel movements daily: 6-7 times from anus and 6 times empties bag # of liquid stools daily: 0 Consistency: soft Bloody bowel movements: no Urgency: yes Abdominal pain: yes Abdominal distention: no Nausea/vomiting: yes Weight loss over last 3 months: yes: General well-being: poor IBD History Template Diagnosis Crohn's Disease: Date of diagnosis (year): 2013 Phenotype Location affected: ileum colon rectum Behavior: inflammatory penetrating Perianal disease: yes Prior Medications/Reason for Switch Surgery: Yes: Loop Ileostomy Thiopurines: No Methotrexate: No Biologics: Yes - adalimumab, reason for switch: antibodies- one year-remission and then developed AB form 8435-0949 UST 5420-4200 Small molecules: No Current Medications Systemic steroids Prior Complications and Extraintestinal Manifestations Clostridium difficile: yes Thrombosis: no Ocular (Uveitis, Episcleritis): no Dermatologic (Pyoderma gangrenosum, Erythema nodosum): no Arthropathy/Arthralgia: no Oral ulcers: no Primary Sclerosing Cholangitis: no Other: no Labs TB Status: Unknown Hepatitis B Status: Unknown TPMT: Unknown Patient-Entered Data PAST SURGICAL HISTORY Procedure Laterality Date COLONOSCOPY GEN ANES 10/20/2020 EXCISION PILONIDAL CYST/SINUS SIMPLE 06/2016 PAST SURGICAL HISTORY OF 09/10/2018 Laparoscopic creation of diverting loop ileostomy, laparoscopic TAP block, examination under anesthesia with flexible sigmoidoscopy with biopsies, incision and drainage of complex perianal and supralevator abscesses with drain and seton placement. PAST SURGICAL HISTORY OF 08/26/2018 Exam under anesthesia, flexible sigmoidoscopy, incision and drainage of deep postanal space abscess, seton and drain placement. PAST MEDICAL HISTORY Diagnosis Date Crohn's disease (HCC) History of transfusion Perianal abscess Current Outpatient Medications Medication Sig Dispense Refill predniSONE (DELTASONE) 10 mg tablet Take 4 tablets by mouth once daily for 7 days, THEN 3.5 tabletsonce daily for 7 days, THEN 3 tablets once daily for 7 days, THEN 2.5 tablets once daily for 7 days, THEN 2 tablets once daily for 7 days, THEN 1.5 tablets once daily for 7 days, THEN 1 tablet once daily for 7 days. 123 tablet 0 hydrOXYzine HCl (ATARAX) 10 mg tablet Take 1 tablet by mouth four times daily as needed. 120 tablet0 ondansetron orally disintegrating (ZOFRAN ODT) 4 mg disintegrating tablet TAKE 1 TABLET BY MOUTH EVERY 8 HOURS NEEDED FOR NAUSEA AND VOMITING promethazine (PHENERGAN) 25 mg tablet Take 25 mg by mouth every 6 hours as needed. amitriptyline (ELAVIL) 10 mg tablet Take 1 tablet by mouth daily at bedtime. 30 tablet 2 azaTHIOprine (IMURAN) 100 mg tablet Take 2 tablets by mouth once daily. 60 tablet 0 No current facility-administered medications for this visit. Patient has no known allergies. Recent Labs: CBC: WBC (k/uL) Date Value 01/21/2023 12.77 (H) 01/20/2023 7.42 Hematocrit (%) Date Value 01/21/2023 40.5 MCV (fL) Date Value 01/21/2023 83.0 Platelet Count (k/uL) Date Value 01/21/2023 406 (H) Lymphocytes % (%) Date Value 01/16/2023 16.5 Hepatic Function Panel: Albumin (g/dL) Date Value 01/21/2023 4.4 Bilirubin, Total (mg/dL) Date Value 01/16/2023 0.2 Bilirubin, Conjugated (mg/dL) Date Value 01/16/2023 <0.2 Alkaline Phosphatase (U/L) Date Value 01/16/2023 71 AST (U/L) Date Value 01/16/2023 14 ALT (U/L) Date Value 01/16/2023 17 Protein, Total (g/dL) Date Value 01/16/2023 8.3 (H) Social History Tobacco Use Smoking status: Former Packs/day: 0.50 Types: Cigarettes Smokeless tobacco: Never Tobacco comments: 3 per day Vaping Use Vaping Use: Never used Substance Use Topics Alcohol use: Yes Comment: 1 per week Drug use: No PERSONAL HABITS: Tobacco: No Alcohol: Yes, How Many? PAST MEDICAL HISTORY Colon polyps:Yes Colon cancer: No Other cancer:No Radiation / Chemotherapy:No Crohn's disease / Ulcerative colitis:Yes High cholesterol or triglycerides:No Ulcers: Yes Gallstones:No Hepatitis / jaundice: No Heart Disease: No Lung Disease:No Liver problems:No Thyroid disease: No Kidney stones:No Pancreatitis:No Diabetes:No Arthritis:No Rheumatic fever:No Gastrointestinal bleeding:Yes Depression or other mental illness:No Other personal illness: GI SPECIFIC ROS Difficulty swallowing / foods sticking in throat:No Heartburn:Yes Hoarseness:No Chronic cough:No Regurgitation:No Chest pain:No Filling up quickly at meals:Yes Loss of appetite:Yes Nausea:Yes Vomiting: No Abdominal pain:Yes Recent change in bowel movements: Yes Bloody or black, bowel movements:No Constipation: No Diarrhea: Yes Loss of control of bowel movements:No Night sweats, fever, chills: No Thought or memory problems: No Fluid in abdomen (ascites): No Prominent leg swelling: No Vomiting blood: No Recent change in weight:Yes ROS EyesNegative for vision changes, diplopia or epiphora. Ears, Mouth, nose, throat:No problems Cardiovascular: No Problems Respiratory: Negative for cough, wheezing and shortness of breath Gastrointestinal : No problems Genitourinary: Negative Musuloskeletal: Normal Integumentary: no rashes, lesions, or jaundice Neurological: No history of neurologic problems Endocrine: Negative for cold or heat intolerance, polyuria, polydipsia and goiter. Psychiatric: Cooperative and agreeable Allergic/ Immunologic: Negative All others negative FAMILY HISTORY Has anyone in your family (grandparents, parents, brothers, sisters, aunts, or uncles) had: Liver problems: No Colitis: No Colon cancer:No Other cancers: yes FAMILY HISTORY Problem Relation Age of Onset Colon Cancer Other PHYSICAL EXAMINATION General Appearance: alert, oriented x 3, pleasant and in no acute distress Eyes: No icterus or conjunctival pallor.. Oropharynx: Lips, tongue, and oral mucosa normal. There is no thrush or oral ulcers. Lungs: breath sounds clear to auscultation bilaterally Heart: regular rate and rhythm, no murmurs or gallops. Abdomen: Not distended. Normal bowel sounds. Soft and non-tender. No masses or organomegaly. Rectal: No external lesions, no masses Extremities: no cyanosis or edema. Skin: no rashes or lesions Lymph: No cervical, axillary, supraclavicular, or adenopathy. Assessment Problem List Items Addressed This Visit Gastrointestinal Crohn's colitis, unspecified complication (HCC) Overview -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 She was treated with PDN, ADA from 1158-6929, lost response due to development of AB, UST from 3160-0255 lost insurance and was not on medications. 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 No medications since then. Recent discharge from hospital01/08-01/21 for abdominal pain, bleeding and stool per rectum. Underwent MRE and MRI pelvis, ileoscopy and colonoscopy which shows active inflammation involving small and large intestine. +inflammationin the cele anal fistula tract. Started on IVCS and now on PO prednisone taper Current Assessment & Plan -Continue with PDN taper -Consult nutrition, IBD psychologist Dr. Garcia and pharmacist Dr. Ulrich for medication teaching and HCM -Plan to start patient on combination treatment IFX+AZA after discussing risks and benefits -Follow up with [facility] next week Follow up in 4 weeks RESOLVED: Crohn's colitis (HCC) - Primary Overview Added automatically from request for surgery [id number] Relevant Orders CONSULT TO GASTROENTEROLOGY AMBULATORY CLINIC PHARMACY CONSULT TO NUTRITION THERAPY CONSULT TO [facility] Other History of endoscopy Overview 01/18/23: Moderate to severe inflammed mucosa was seen in the colon. Biopsied. Findings: On entering throught the stoma, mucosa appeared colonic. No entrance into the ileum was found. A diffuse area of inflammad mucosa in the colon starting at 25cm from stoma was found. This was moderately erythematous with superficial ulcerations. Inflammation was moderately severe from 25-60cm from the stoma and improved from 75cm and beyond. Psuedopolyps were seen from 55-60cm. This was biopsied with a cold forceps for histology. A. Colon, random, biopsy: - Colonic mucosa with patchy active chronic colitis with focal erosion and reactive epithelial changes.- Focal mucosal base granulomata. - No dysplasia seen. 2020: Impression:Seton noted. Diversion colitis. - Rectal tenderness found on digital rectal exam. - Friability with no bleeding in the entire examined colon. Biopsied. - Simple Endoscopic Score for Crohn's Disease: 13, mucosal inflammatory changes secondary to Crohn's disease with colonic involvement vs diversion colitis. Biopsied. 09/20/2020: Impression:- Preparation of the colon was fair. Procedur aborted/incomplete in the mid-transverse colon due to large stool ball precluding visulaization and further advancement of the scope. 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 - Stricture at the anus and in the distal rectum. - Simple Endoscopic Score for Crohn's Disease: 12, mucosal inflammatory changes secondary to Crohn's disease. Biopsied. - Multiple polyps in the entire colon. Biopsied. - Overall, picture consistent with diversion colitis and inflammatory polyps likely in the setting of healed up colitis. Imaging of gastrointestinal tract abnormal Overview MRE and MR pelvis IMPRESSION: Possible mild inflammatory change of the terminal ileum, distal to the ileostomy. Otherwise, no active inflammatory small bowel Crohn's disease. Probable mild inflammatory changes of the mid to distal descending colon. Persistent active perianal disease, similar to prior CT although improved from prior MRI. No perianal abscess. PATIENT IS OK TO BE CONTACTED BY IBD GI RESEARCH TEAM TO EXPLORE PARTICIPATION IN RESEARCH STUDIES YES Rut Lagos MD, MD January 31, 2023 1:11 PM [facility] Discharge instructions Patient Education 01/25/2023 23:43:22 Crohn's Disease Crohn's Disease Crohn's disease is a long-lasting (chronic) disease that affects the gastrointestinal (GI) tract. Crohn's disease often causes irritation and inflammation in the small intestine and the beginning of the large intestine, but it can affect any part of the GI tract. Crohn's disease is part of a group o f illnesses that are known as inflammatory bowel disease (IBD). Crohn's disease may start slowly and get worse over time. Symptoms may come and go. They may also go away for months or even years at a time (remission). What are the causes? The exact cause of this condition is not known. It may involve a response that causes your body's disease-fighting system (immune system) to attack healthy cells and tissues (autoimmune response). Bacteria, genes, and your environment may also play a role. What increases the risk? The following factors may make you more likely to develop this condition: Having a family member who has Crohn's disease, another IBD, or an autoimmune condition. Using products that contain nicotine or tobacco, such as cigarettes and e-cigarettes. Being in your 20s. Having Eastern ancestry. What are the signs or symptoms? The main symptoms of this condition involve your GI tract. These include: Diarrhea. Pain or cramping in the abdomen commonly felt in the lower right side of the abdomen. Frequent watery or bloody stools. Constipation. This may mean having: ?Fewer bowel movements in a week than normal. ?Difficulty having a bowel movement. ?Stools that are dry, hard, or larger than normal. Rectal bleeding or pain. An urgent need to have a bowel movement. The feeling that you are not finished having a bowel movement. Other symptoms may include: Unexplained weight loss. Tiredness (fatigue). Fever. Nausea or appetite loss. Joint pain. Vision changes. Red bumps or sores on the skin. Sores inside the mouth. How is this diagnosed? This condition may be diagnosed based on: Your symptoms and medical history. A physical exam. Tests, which may include: ?Blood tests. ?Stool sample tests. ?Imaging tests, such as X-rays and CT scans. ?Tests to examine the inside of your intestines using a long, flexible tube that has a light and a camera on the end (colonoscopy). ?A procedure to remove tissue samples from inside your bowel for testing (biopsy). You may need to work with a health care provider who specializes in diseases of the digestive tract(clinical radiologist). How is this treated? There is no cure for this condition, and it affects each person differently. Treatment can help youmanage your symptoms. Your treatment may include: Medicines. These may be used by themselves or with other treatments (combination therapy). You may be given medicines that help to: ?Reduce inflammation. ?Control your immune system activity. ?Fight infections. ?Relieve cramps and prevent diarrhea. ?Control your pain. Surgery. You may need surgery if: ?Medicines and other treatments are not working anymore. ?You develop complications from severe Crohn's disease. ?A section of your intestine becomes so damaged that it needs to be removed. Lifestyle changes: ?Maintaining eating or drinking restrictions. ?Reducing or eliminating use of alcohol or nicotine. Follow these instructions at home: Medicines Take olku-khn-awjihbw and prescription medicines only as told by your health care provider. If you were prescribed an antibiotic, take it as told by your health care provider. Do not stop taking the antibiotic even if you start to feel better. Avoid taking ibuprofen or other NSAID medicines if possible. These can make Crohn's disease worse. Eating and drinking Talk with your health care provider or a registered dietitian about what diet is best for you. Drink enough fluid to keep your urine pale yellow. If you are taking steroids to reduce inflammation, get plenty of calcium in your diet to help keep your bones healthy. You may also consider taking a calcium supplement with vitamin D. Keep a food diary to identify foods that make your symptoms better or worse, and avoid foods that cause symptoms. Follow instructions from your health care provider about eating or drinking restrictions if you have worsening symptoms (flare-up). If you drink alcohol: ?Limit how much you have to: ?0 1 drink a day for women who are not . ?0 2 drinks a day for men. ?Know how much alcohol is in a drink. In the [place] one drink equals one 12 oz bottle of beer (355 mL), one 5 oz glass of wine (148 mL), or one 1 oz glass of hard liquor (44 mL). General instructions Make sure you get all the vaccines that your health care provider recommends, especially pneumonia (pneumococcal) and flu (influenza) vaccines. Do not use any products that contain nicotine or tobacco. These products include cigarettes, chewing tobacco, and vaping devices, such as e-cigarettes. If you need help quitting, ask your health careprovider. Exercise every day, or as often as told by your health care provider. Keep all follow-up visits. This is important. Contact a health care provider if: You have diarrhea, cramps in your abdomen, and other GI problems that are present almost all the time. Your symptoms do not improve with treatment, your symptoms get worse, or you develop new symptoms. You cannot pass stools. You continue to lose weight. You develop a rash or sores on your skin. You develop eye problems. You have a fever. Get help right away if: You have bloody diarrhea. You have severe pain in your abdomen. These symptoms may be an emergency. Get help right away. Call 911. Do not wait to see if the symptoms will go away. Do not drive yourself to the hospital. Summary Crohn's disease affects each person differently. The cause of this condition is not known, but it may involve a response that causes your body's immune system to attack healthy cells and tissues. There are multiple treatment options that can help you manage the condition. Talk with your health care provider or a registered dietitian about what diet is best for you. Make sure you get all the vaccines that your health care provider recommends, especially pneumonia (pneumococcal) and flu (influenza) vaccines. Get help right away if you have bloody diarrhea or severe pain in your abdomen. This information is not intended to replace advice given to you by your health care provider. Make sure you discuss any questions you have with your health care provider. Document Revised: 03/15/2022 Document Reviewed: 03/15/2022 [employer] Patient Education 2022 [employer]. Follow Up Care 01/25/2023 20:50:02 With:Jose Raul PHILLIPS Address: [address] [place], [place] [address]ashkan White, [facility] [place] [address] Business (1) When:01/28/2023 Comments:Call the office of your primary care doctor to arrange for follow-up within the above-stated timeframe. Follow-up with your primary care doctor about this ED visit. You should review your labs, imaging, and diagnoses from this ED visit with your primary care physician. If you were prescribed medications you should discuss possible side-effects and drug interactions with your pharmacist. Call 911 or go to the nearest Emergency Department if you develop any new or worsening symptoms. [facility]05-05-2023 Evaluation + Plan noteExtracted from: Title:ED Note Author:Ailsha LEDESMA, Familia Singer Jason e:01/25/23 Abdominal pain (R10.9: Unspe cified abdominal pain) Crohn's disease (K50.90: Crohn's disease, unspecified, without complications) Orders: acetaminophen-oxycodone, 1 tab(s), Oral, q6hr, 12 tab(s), Refill(s) 0, [id number], 168, cm, 01/25/23 20:54:00 EDT, Height/Length Dosing, 83, kg, 01/25/23 20:54:00 EDT, Weight Dosing morphine, 4 mg = 2 mL, Injection, IV Push, Once, Stop date 01/25/23 21:12:00 EDT, STAT, Start date 01/25/23 21:12:00 EDT, 01/25/23 21:12:00 EDT morphine, 2 mg = 1 mL, Injection, IV Push, Once, Stop date 01/25/23 22:34:00 EDT, STAT, Start date 01/25/23 22:34:00 EDT, 01/25/23 22:34:00 EDT ondansetron, 4 mg = 2 mL, Injection, IV Push, Once, Stop date 01/25/23 21:12:00 EDT, STAT, Start date 01/25/23 21:12:00 EDT, 01/25/23 21:12:00 EDT Sodium Chloride 0.9% intravenous solution, 1,000 mL, Soln-IV, IV, Once, Stop date 01/25/23 21:12:00 EDT, STAT, Start date 01/25/23 21:12:00 EDT, Infuse over 61, minute(s) Automated Diff Basic Metabolic Panel CBC w/ Auto Diff CT Abdomen/Pelvis w/ Contrast eGFR Hepatic Function Panel Lipase Level UA With Cult Reflex Future Appointments Appointment Date:02/21/2023 01:45:00 PM Scheduled Provider:Karlos RAWLS MD Location:[facility] Dig[facility] Health Appointment Type:[facility] Follow Up [facility]04-23-2023 Hospital Discharge instructions Patient Education 01/13/2023 16:33:24 Urinary Tract Infection, Adult Urinary Tract Infection, Adult A urinary tract infection (UTI) is an infection of any part of the urinary tract. The urinary tractincludes the kidneys, ureters, bladder, and urethra. These organs make, store, and get rid of urinein the body. An upper UTI affects the ureters and kidneys. A lower UTI affects the bladder and urethra. What are the causes? Most urinary tract infections are caused by bacteria in your genital area around your urethra, where urine leaves your body. These bacteria grow and cause inflammation of your urinary tract. What increases the risk? You are more likely to develop this condition if: You have a urinary catheter that stays in place. You are not able to control when you urinate or have a bowel movement (incontinence). You are female and you: ?Use a spermicide or diaphragm for control. ?Have low estrogen levels. ?Are . You have certain genes that increase your risk. You are sexually active. You take antibiotic medicines. You have a condition that causes your flow of urine to slow down, such as: ?An enlarged prostate, if you are male. ?Blockage in your urethra. ?A kidney stone. ?A nerve condition that affects your bladder control (neurogenic bladder). ?Not getting enough to drink, or not urinating often. You have certain medical conditions, such as: ?Diabetes. ?A weak disease-fighting system (immunesystem). ?Sickle cell disease. ?Gout. ?Spinal cord injury. What are the signs or symptoms? Symptoms of this condition include: Needing to urinate right away (urgency). Frequent urination. This may include small amounts of urine each time you urinate. Pain or burning with urination. Blood in the urine. Urine that smells bad or unusual. Trouble urinating. Cloudy urine. Vaginal discharge, if you are female. Pain in the abdomen or the lower back. You may also have: Vomiting or a decreased appetite. Confusion. Irritability or tiredness. A fever or chills. Diarrhea. The first symptom in older adults may be confusion. In some cases, they may not have any symptoms until the infection has worsened. How is this diagnosed? This condition is diagnosed based on your medical history and a physical exam. You may also have other tests, including: Urine tests. Blood tests. Tests for STIs (sexually transmitted infections). If you have had more than one UTI, a cystoscopy or imaging studies may be done to determine the cause of the infections. How is this treated? Treatment for this condition includes: Antibiotic medicine. Fshm-ofg-ycckwrp medicines to treat discomfort. Drinking enough water to stay hydrated. If you have frequent infections or have other conditions such as a kidney stone, you may need to see a health care provider who specializes in the urinary tract (urologist). In rare cases, urinary tract infections can cause sepsis. Sepsis is a life- threatening condition that occurs when the body responds to an infection. Sepsis is treated in the hospital with IV antibiotics, fluids, and other medicines. Follow these instructions at home: Medicines Take rpso-znt-iimsfwp and prescription medicines only as told by your health care provider. If you were prescribed an antibiotic medicine, take it as told by your health care provider. Do notstop using the antibiotic even if you start to feel better. General instructions Make sure you: ?Empty your bladder often and completely. Do not hold urine for long periods of time. ?Empty your bladder after sex. ?Wipe from front to back after urinating or having a bowel movement if you are female. Use each tissue only one time when you wipe. Drink enough fluid to keep your urine pale yellow. Keep all follow-up visits. This is important. Contact a health care provider if: Your symptoms do not get better after 1 2 days. Your symptoms go away and then return. Get help right away if: You have severe pain in your back or your lower abdomen. You have a fever or chills. You have nausea or vomiting. Summary A urinary tract infection (UTI) is an infection of any part of the urinary tract, which includes the kidneys, ureters, bladder, and urethra. Most urinary tract infections are caused by bacteria in your genital area. Treatment for this condition often includes antibiotic medicines. If you were prescribed an antibiotic medicine, take it as told by your health care provider. Do notstop using the antibiotic even if you start to feel better. Keep all follow-up visits. This is important. This information is not intended to replace advice given to you by your health care provider. Make sure you discuss any questions you have with your health care provider. Document Revised: 04/21/2021 Document Reviewed: 04/21/2021 [employer] Patient Education 2022 [employer]. 01/13/2023 16:33:24 Abdominal Pain, Adult Abdominal Pain, Adult Pain in the abdomen (abdominal pain) can be caused by many things. Often, abdominal pain is not serious and it gets better with no treatment or by being treated at home. However, sometimes abdominal pain is serious. Your health care provider will ask questions about your medical history and do a physical exam to try to determine the cause of your abdominal pain. Follow these instructions at home: Medicines Take gcmm-wmo-qqpfxga and prescription medicines only as told by your health care provider. Do not take a laxative unless told by your health care provider. General instructions Watch your condition for any changes. Drink enough fluid to keep your urine pale yellow. Keep all follow-up visits as told by your health care provider. This is important. Contact a health care provider if: Your abdominal pain changes or gets worse. You are not hungry or you lose weight without trying. You are constipated or have diarrhea for more than 2 3 days. You have pain when you urinate or have a bowel movement. Your abdominal pain wakes you up at night. Your pain gets worse with meals, after eating, or with certain foods. You are vomiting and cannot keep anything down. You have a fever. You have blood in your urine. Get help right away if: Your pain does not go away as soon as your health care provider told you to expect. You cannot stop vomiting. Your pain is only in areas of the abdomen, such as the right side or the left lower portion of the abdomen. Pain on the right side could be caused by appendicitis. You have bloody or black stools, or stools that look like tar. You have severe pain, cramping, or bloating in your abdomen. You have signs of dehydration, such as: ?Dark urine, very little urine, or no urine. ?Cracked lips. ?Dry mouth. ?Sunken eyes. ?Sleepiness. ?Weakness. You have trouble breathing or chest pain. Summary Often, abdominal pain is not serious and it gets better with no treatment or by being treated at home. However, sometimes abdominal pain is serious. Watch your condition for any changes. Take gjkq-cdq-ufmcxbe and prescription medicines only as told by your health care provider. Contact a health care provider if your abdominal pain changes or gets worse. Get help right away if you have severe pain, cramping, or bloating in your abdomen. This information is not intended to replace advice given to you by your health care provider. Make sure you discuss any questions you have with your health care provider. Document Revised: 10/28/2020 Document Reviewed: 01/18/2020 [employer] Patient Education 2022 [employer]. Follow Up Care 01/13/2023 14:28:08 With:Karlos RAWLS Address: [address] [place] [address] Business (1) When:01/16/2023 16:20:32 Comments:Call the office of Dr. Rawls to see if he can see you sooner. Call your colorectal surgeon as well to follow-up with him. Return to the emergency room if your pain gets worse or any new symptoms. With:Jose Raul PHILLIPS Address: [address] [facility], [place] [address] Business (1) When:01/16/2023 16:20:25 [facility]04-23-2023 Evaluation + Plan noteExtracted from: Title:ED Note Author:Lisandro Mihsra, Carolyn Ramirez te:01/13/23 1. Abdominal pain (R10.9: Un specified abdominal pain) 2. Urinary tract infection (N39.0: Urinary tract infection, site not specified) Orders: cephalexin, 500 mg = 1 cap(s), Oral, q6hr, X 7 day(s), # 28 cap(s), Refills(s) 0, Pharmacy: [facility]/pharm[facility] #[id number], 168, cm, 01/13/23 14:44:00 EDT, Height/Length Dosing, 93.2, kg, 01/13/23 14:44:00 EDT, Weight Dosing dicyclomine, 20 mg = 2 mL, Injection, IntraMuscular, Once, Stop date 01/13/23 15:03:00 EDT, STAT, Start date 01/13/23 15:03:00 EDT, 01/13/23 15:03:00 EDT methylPREDNISolone, 125 mg = 2 mL, Injection, IV Push, Once, Stop date 01/13/23 15:05:00 EDT, STAT, Start date 01/13/23 15:05:00 EDT, 01/13/23 15:05:00 EDT morphine, 4 mg = 2 mL, Injection, IV Push, Once, Stop date 01/13/23 15:55:00 EDT, STAT, Start date 01/13/23 15:55:00 EDT, 01/13/23 15:55:00 EDT ondansetron, 4 mg = 2 mL, Injection, IV Push, Once, Stop date 01/13/23 15:03:00 EDT, STAT, Start date 01/13/23 15:03:00 EDT, 01/13/23 15:03:00 EDT promethazine, 25 mg = 1 tab(s), Oral, q6hr, PRN as needed for nausea/vomiting, # 20 tab(s), Refills(s) 0, Pharmacy: [facility]/pharmacy #[id number], 168, cm, 01/13/23 14:44:00 EDT, Height/Length Dosing, 93.2, kg, 01/13/23 14:44:00 EDT, Weight Dosing Sodium Chloride 0.9% intravenous solution, 1,000 mL, Soln-IV, IV, Once, Stop date 01/13/23 15:03:00 EDT, STAT, Start date 01/13/23 15:03:00 EDT, Infuse over 61, minute(s) Automated Diff Basic Metabolic Panel CBC w/ Auto Diff eGFR Hepatic Function Panel Lipase Level PT & PTT U Beta Hcg Qual UA With Cult Reflex Urine Culture Future Appointments Appointment Date:02/21/2023 01:45:00 PM Scheduled Provider:Karlos RAWLS MD Location:[facility] Digestive Health Appointment Type:[facility] Follow Up Diagnostic Tests Pending * Urine Culture 01/13/23 [facility]04-19-2023 Hospital Discharge instructions Patient Education 01/09/2023 16:01:41 Nausea and Vomiting, Adult, Zbla-yo-Rcuo Nausea and Vomiting, Adult Nausea is feeling that you have an upset stomach and that you are about to vomit. Vomiting is when food in your stomach forcefully comes out of your mouth. Vomiting can make you feel weak. If you vomit, or if you are not able to drink enough fluids, you may not have enough water in your body (get dehydrated). If you do not have enough water in your body, you may: Feel tired. Feel thirsty. Have a dry mouth. Have cracked lips. Pee (urinate) less often. Older adults and people with other diseases or a weak body defense system (immune system) are at higher risk for not having enough water in the body. If you feel like you may vomit or you vomit, it is important to follow instructions from your doctor about how to take care of yourself. Follow these instructions at home: Watch your symptoms for any changes. Tell your doctor about them. Eating and drinking Take an ORS (oral rehydration solution). This is a drink that is sold at pharmacies and stores. Drink clear fluids in small amounts as you are able, such as: ?Water. ?Ice chips. ?Fruit juice that has water added (diluted fruit juice). ?Low-calorie sports drinks. Eat bland, lszn-yj-cnrlsw foods in small amounts as you are able, such as: ?Bananas. ?Applesauce. ?Rice. ?Low-fat (lean) meats. ?Aiken. ?Crackers. Avoid drinking fluids that have a lot of sugar or caffeine in them. This includes energy drinks, sports drinks, and soda. Avoid alcohol. Avoid spicy or fatty foods. General instructions Take rkby-wdj-bgbktkh and prescription medicines only as told by your doctor. Drink enough fluid to keep your pee (urine) pale yellow. Wash your hands often with soap and water for at least 20 seconds. If you cannot use soap and water, use hand judicial administrative assistant. Make sure that everyone in your home washes their hands well and often. Rest at home until you feel better. Watch your condition for any changes. Take slow and deep breaths when you feel like you may vomit. Keep all follow-up visits. Contact a doctor if: Your symptoms get worse. You have new symptoms. You have a fever. You cannot drink fluids without vomiting. You feel like you may vomit for more than 2 days. You feel light-headed or dizzy. You have a headache. You have muscle cramps. You have a rash. You have pain while peeing. Get help right away if: You have pain in your chest, neck, arm, or jaw. You feel very weak or you faint. You vomit again and again. You have vomit that is bright red or looks like black coffee grounds. You have bloody or black poop (stools) or poop that looks like tar. You have a very bad headache, a stiff neck, or both. You have very bad pain, cramping, or bloating in your belly (abdomen). You have trouble breathing. You are breathing very quickly. Your heart is beating very quickly. Your skin feels cold and clammy. You feel confused. You have signs of losing too much water in your body, such as: ?Dark pee, very little pee, or no pee. ?Cracked lips. ?Dry mouth. ?Sunken eyes. ?Sleepiness. ?Weakness. These symptoms may be an emergency. Get help right away. Call 911. Do not wait to see if the symptoms will go away. Do not drive yourself to the hospital. Summary Nausea is feeling that you have an upset stomach and that you are about to vomit. Vomiting is when food in your stomach comes out of your mouth. Follow instructions from your doctor about eating and drinking. Take rrct-ggx-yoknrpm and prescription medicines only as told by your doctor. Contact your doctor if your symptoms get worse or you have new symptoms. Keep all follow-up visits. This information is not intended to replace advice given to you by your health care provider. Make sure you discuss any questions you have with your health care provider. Document Revised: 03/16/2022 Document Reviewed: 03/16/2022 [employer] Patient Education 2022 [employer]. 01/09/2023 16:01:41 Crohn's Disease Crohn's Disease Crohn's disease is a long-lasting (chronic) disease that affects the gastrointestinal (GI) tract. Crohn's disease often causes irritation and inflammation in the small intestine and the beginning of the large intestine, but it can affect any part of the GI tract. Crohn's disease is part of a group o f illnesses that are known as inflammatory bowel disease (IBD). Crohn's disease may start slowly and get worse over time. Symptoms may come and go. They may also go away for months or even years at a time (remission). What are the causes? The exact cause of this condition is not known. It may involve a response that causes your body's disease-fighting system (immune system) to attack healthy cells and tissues (autoimmune response). Bacteria, genes, and your environment may also play a role. What increases the risk? The following factors may make you more likely to develop this condition: Having a family member who has Crohn's disease, another IBD, or an autoimmune condition. Using products that contain nicotine or tobacco, such as cigarettes and e-cigarettes. Being in your 20s. Having [place] ancestry. What are the signs or symptoms? The main symptoms of this condition involve your GI tract. These include: Diarrhea. Pain or cramping in the abdomen commonly felt in the lower right side of the abdomen. Frequent watery or bloody stools. Constipation. This may mean having: ?Fewer bowel movements in a week than normal. ?Difficulty having a bowel movement. ?Stools that are dry, hard, or larger than normal. Rectal bleeding or pain. An urgent need to have a bowel movement. The feeling that you are not finished having a bowel movement. Other symptoms may include: Unexplained weight loss. Tiredness (fatigue). Fever. Nausea or appetite loss. Joint pain. Vision changes. Red bumps or sores on the skin. Sores inside the mouth. How is this diagnosed? This condition may be diagnosed based on: Your symptoms and medical history. A physical exam. Tests, which may include: ?Blood tests. ?Stool sample tests. ?Imaging tests, such as X-rays and CT scans. ?Tests to examine the inside of your intestines using a long, flexible tube that has a light and a camera on the end (colonoscopy). ?A procedure to remove tissue samples from inside your bowel for testing (biopsy). You may need to work with a health care provider who specializes in diseases of the digestive tract(clinical radiologist). How is this treated? There is no cure for this condition, and it affects each person differently. Treatment can help youmanage your symptoms. Your treatment may include: Medicines. These may be used by themselves or with other treatments (combination therapy). You may be given medicines that help to: ?Reduce inflammation. ?Control your immune system activity. ?Fight infections. ?Relieve cramps and prevent diarrhea. ?Control your pain. Surgery. You may need surgery if: ?Medicines and other treatments are not working anymore. ?You develop complications from severe Crohn's disease. ?A section of your intestine becomes so damaged that it needs to be removed. Lifestyle changes: ?Maintaining eating or drinking restrictions. ?Reducing or eliminating use of alcohol or nicotine. Follow these instructions at home: Medicines Take chmq-lxq-lnwnpjc and prescription medicines only as told by your health care provider. If you were prescribed an antibiotic, take it as told by your health care provider. Do not stop taking the antibiotic even if you start to feel better. Avoid taking ibuprofen or other NSAID medicines if possible. These can make Crohn's disease worse. Eating and drinking Talk with your health care provider or a registered dietitian about what diet is best for you. Drink enough fluid to keep your urine pale yellow. If you are taking steroids to reduce inflammation, get plenty of calcium in your diet to help keep your bones healthy. You may also consider taking a calcium supplement with vitamin D. Keep a food diary to identify foods that make your symptoms better or worse, and avoid foods that cause symptoms. Follow instructions from your health care provider about eating or drinking restrictions if you have worsening symptoms (flare-up). If you drink alcohol: ?Limit how much you have to: ?0 1 drink a day for women who are not . ?0 2 drinks a day for men. ?Know how much alcohol is in a drink. In the [place] one drink equals one 12 oz bottle of beer (355 mL), one 5 oz glass of wine (148 mL), or one 1 oz glass of hard liquor (44 mL). General instructions Make sure you get all the vaccines that your health care provider recommends, especially pneumonia (pneumococcal) and flu (influenza) vaccines. Do not use any products that contain nicotine or tobacco. These products include cigarettes, chewing tobacco, and vaping devices, such as e-cigarettes. If you need help quitting, ask your health careprovider. Exercise every day, or as often as told by your health care provider. Keep all follow-up visits. This is important. Contact a health care provider if: You have diarrhea, cramps in your abdomen, and other GI problems that are present almost all the time. Your symptoms do not improve with treatment, your symptoms get worse, or you develop new symptoms. You cannot pass stools. You continue to lose weight. You develop a rash or sores on your skin. You develop eye problems. You have a fever. Get help right away if: You have bloody diarrhea. You have severe pain in your abdomen. These symptoms may be an emergency. Get help right away. Call 911. Do not wait to see if the symptoms will go away. Do not drive yourself to the hospital. Summary Crohn's disease affects each person differently. The cause of this condition is not known, but it may involve a response that causes your body's immune system to attack healthy cells and tissues. There are multiple treatment options that can help you manage the condition. Talk with your health care provider or a registered dietitian about what diet is best for you. Make sure you get all the vaccines that your health care provider recommends, especially pneumonia (pneumococcal) and flu (influenza) vaccines. Get help right away if you have bloody diarrhea or severe pain in your abdomen. This information is not intended to replace advice given to you by your health care provider. Make sure you discuss any questions you have with your health care provider. Document Revised: 03/15/2022 Document Reviewed: 03/15/2022 [employer] Patient Education 2022 [employer]. 01/09/2023 16:01:41 Abdominal Pain, Adult, Mdzf-vy-Ocwe Abdominal Pain, Adult Many things can cause belly (abdominal) pain. Most times, belly pain is not dangerous. Many cases of belly pain can be watched and treated at home. Sometimes, though, belly pain is serious. Your doctor will try to find the cause of your belly pain. Follow these instructions at home: Medicines Take qlfx-isp-cxduibl and prescription medicines only as told by your doctor. Do not take medicines that help you poop (laxatives) unless told by your doctor. General instructions Watch your belly pain for any changes. Drink enough fluid to keep your pee (urine) pale yellow. Keep all follow-up visits as told by your doctor. This is important. Contact a doctor if: Your belly pain changes or gets worse. You are not hungry, or you lose weight without trying. You are having trouble pooping (constipated) or have watery poop (diarrhea) for more than 2 3 days. You have pain when you pee or poop. Your belly pain wakes you up at night. Your pain gets worse with meals, after eating, or with certain foods. You are vomiting and cannot keep anything down. You have a fever. You have blood in your pee. Get help right away if: Your pain does not go away as soon as your doctor says it should. You cannot stop vomiting. Your pain is only in areas of your belly, such as the right side or the left lower part of the belly. You have bloody or black poop, or poop that looks like tar. You have very bad pain, cramping, or bloating in your belly. You have signs of not having enough fluid or water in your body (dehydration), such as: ?Dark pee, very little pee, or no pee. ?Cracked lips. ?Dry mouth. ?Sunken eyes. ?Sleepiness. ?Weakness. You have trouble breathing or chest pain. Summary Many cases of belly pain can be watched and treated at home. Watch your belly pain for any changes. Take xxfm-pbi-nwbsary and prescription medicines only as told by your doctor. Contact a doctor if your belly pain changes or gets worse. Get help right away if you have very bad pain, cramping, or bloating in your belly. This information is not intended to replace advice given to you by your health care provider. Make sure you discuss any questions you have with your health care provider. Document Revised: 01/18/2020 Document Reviewed: 01/18/2020 [employer] Patient Education 2022 [employer]. Follow Up Care 01/09/2023 12:41:52 With:Karlos RAWLS Address: [address] [place] [address] Business (1) When:01/12/2023 15:38:20 Comments:follow up with your Gi doctor for futher evaluation of your crohn's disease. With:Jose Raul PHILLIPS Address: [address] [place] [address] Business (1) When:01/12/2023 15:38:06 Comments:Follow-up with your primary care provider in 3 to 5 days. If symptoms worsen, do not improve, or new symptoms arise please report back to emergency department for further evaluation. [facility]04-19-2023 Evaluation + Plan noteExtracted from: Title:ED Note Author:Ramesh LEDESMA, Wil Ramirez te:01/09/23 Abdominal pain (R10.9: Unspe cified abdominal pain) Crohn's disease (K50.90: Crohn's disease, unspecified, without complications) Nausea and vomiting (R11.2: Nausea with vomiting, unspecified) Orders: acetaminophen-oxycodone, 1 tab(s), Tab, Oral, Once, Stop date 01/09/23 15:06:00 EDT, STAT, Start date 01/09/23 15:06:00 EDT acetaminophen-oxycodone, 1 tab(s), Oral, q6hr for 2 day(s), 8 tab(s), Refill(s) 0, [facility]/pharmacy #[id number], 168, cm, 01/09/23 12:47:00 EDT, Height/Length Dosing, 93.2, kg, 01/09/23 12:47:00 EDT, Weight Dosing acetaminophen-oxycodone, 1 tab(s), Oral, q6hr for pain for 2 day(s), 10 tab(s), Refill(s) 0 dicyclomine, 10 mg = 1 cap(s), Cap, Oral, Once, Stop date 01/09/23 15:05:00 EDT, STAT, Start date 01/09/23 15:05:00 EDT, 01/09/23 15:05:00 EDT dicyclomine, 10 mg = 1 cap(s), Oral, QID, X 10 day(s), # 40 cap(s), Refills(s) 0, Pharmacy: [facility]/pharmacy #[id number], 168, cm, 01/09/23 12:47:00 EDT, Height/Length Dosing, 93.2, kg, 01/09/23 12:47:00 EDT, Weight Dosing famotidine, 20 mg = 2 mL, Soln-IV, IV Push, Once, Stop date 01/09/23 13:14:00 EDT, STAT, Start date 01/09/23 13:14:00 EDT, 01/09/23 13:14:00 EDT morphine, 4 mg = 2 mL, Injection, IV Push, Once, Stop date 01/09/23 13:14:00 EDT, STAT, Start date 01/09/23 13:14:00 EDT, 01/09/23 13:14:00 EDT ondansetron, 4 mg = 2 mL, Injection, IV Push, Once, Stop date 01/09/23 13:14:00 EDT, STAT, Start date 01/09/23 13:14:00 EDT, 01/09/23 13:14:00 EDT ondansetron, 4 mg = 1 tab(s), Oral, q8hr, PRN Nausea/Vomiting, # 20 tab(s), Refills(s) 0, Pharmacy: [facility]/pharmacy #[id number], 168, cm, 01/09/23 12:47:00 EDT, Height/Length Dosing, 93.2, kg, 01/09/23 12:47:00 EDT, Weight Dosing predniSONE, 50 mg = 1 tab(s), Oral, Daily, X 7 day(s), # 7 tab(s), Refills(s) 0, Pharmacy: [facility]/pharmacy #[id number], 168, cm, 01/09/23 12:47:00 EDT, Height/Length Dosing, 93.2, kg, 01/09/23 12:47:00 EDT, Weight Dosing promethazine, 12.5 mg = 0.5 mL, Injection, IV Push, Once, Stop date 01/09/23 13:14:00 EDT, STAT, Start date 01/09/23 13:14:00 EDT, 01/09/23 13:14:00 EDT Sodium Chloride 0.9% intravenous solution, 1,000 mL, Soln-IV, IV, Once, Stop date 01/09/23 13:14:00 EDT, STAT, Start date 01/09/23 13:14:00 EDT, Infuse over 61, minute(s) Automated Diff Basic Metabolic Panel Beta hCG Qual CBC w/ Auto Diff CT Abdomen/Pelvis w/ Contrast eGFR Extra Blue Tube Hepatic Function Panel Lipase Level UA With Cult Reflex Future Appointments Appointment Date:02/21/2023 01:45:00 PM Scheduled Provider:Karlos RAWLS MD Location:[facility] [place] [facility] Appointment Type:[facility] Follow Up [facility]01-07-2023 Hospital Discharge instructions Patient Education 09/29/2022 20:30:53 Colostomy Home Guide, Adult Colostomy Home Guide, Adult Colostomy surgery is done to create an opening in the front of the abdomen for stool (feces) to leave the body through an ostomy (stoma). Part of the large intestine is attached to the stoma. A bag, also called a pouch, is fitted over the stoma. Stool and gas will collect in the bag. After surgery, you will need to empty and change your colostomy bag as needed. You will also need to care for your stoma. How to care for the stoma Your stoma should look pink, red, and moist, like the inside of your cheek. Soon after surgery, thestoma may be swollen, but this swelling will go away within 6 weeks. To care for the stoma: Keep the skin around the stoma clean and dry. Use a clean, soft washcloth to gently wash the stoma and the skin around it. Clean using a circularmotion, and wipe away from the stoma opening, not toward it. ?Use warm water and only use cleansers recommended by your health care provider. ?Rinse the stoma area with plain water. ?Dry the area around the stoma well. Use stoma powder or ointment on your skin only as told by your health care provider. Do not use anyother powders, gels, wipes, or creams on the skin around the stoma. Check the stoma area every day for signs of infection. Check for: ?New or worsening redness, swelling, or pain. ?New or increased fluid or blood. ?Pus or warmth. Measure the stoma opening regularly and record the size. Watch for changes. (It is normal for the stoma to get smaller as swelling goes away.) Share this information with your health care provider. How to empty the colostomy bag Empty your bag at bedtime and whenever it is one-third to one-half full. Do not let the bag get more than half-full with stool or gas. The bag could leak if it gets too full. Some colostomy bags havea built-in gas release valve that releases gas often throughout the day. Follow these basic steps: 1.Wash your hands with soap and water. 2.Sit far back on the toilet seat. 3.Put several pieces of toilet paper into the toilet water. This will prevent splashing as you empty stool into the toilet. 4.Remove the clip or the wicw-ddh-eqei fastener from the tail end of the bag. 5.Unroll the tail, then empty the stool into the toilet. 6.Clean the tail with toilet paper or a moist towelette. 7.Reroll the tail, and close it with the clip or the labm-kku-qgqv fastener. 8.Wash your hands again. How to change the colostomy bag Change your bag every 3 4 days or as often as told by your health care provider. Also change the bag if it is leaking or from the skin, or if your skin around the stoma looks or feels irritated. Irritated skin may be a sign that the bag is leaking. Always have colostomy supplies with you, and follow these basic steps: 1.Wash your hands with soap and water. Have paper towels or tissues nearby to clean any discharge. 2.Remove the old bag and skin barrier. Use your fingers or a warm cloth to gently push the skin away from the barrier. 3.Clean the stoma area with water or with mild soap and water, as directed. Use water to rinse awayany soap. 4.Dry the skin. You may use the cool setting on a applied psychology chair to do this. 5.Use a tracing pattern (template) to cut the skin barrier to the size needed. 6.If you are using a two-piece bag, attach the bag and the skin barrier to each other. Add the barrier ring, if you use one. 7.If directed, apply stoma powder or skin barrier gel to the skin. 8.Warm the skin barrier with your hands, or blow with a applied psychology chair for 5 10 seconds. 9.Remove the paper from the adhesive strip of the skin barrier. 10.Press the adhesive strip onto the skin around the stoma. 11.Gently rub the skin barrier onto the skin. This creates heat that helps the barrier to stick. 12.Apply stoma tape to the edges of the skin barrier, if desired. 13.Wash your hands again. General recommendations Avoid wearing tight clothes or having anything press directly on your stoma or bag. Change your clothing whenever it is soiled or damp. You may shower or bathe with the bag on or off. Do not use harsh or oily soaps or lotions. Dry the skin and bag after bathing. Store all supplies in a cool, dry place. Do not leave supplies in extreme heat because some parts can melt or not stick as well. Whenever you leave home, take extra clothing and an extra skin barrier and bag with you. If your bag gets wet, you can dry it with a applied psychology chair on the cool setting. To prevent odor, you may put drops of ostomy deodorizer in the bag. If recommended by your health care provider, put ostomy lubricant inside the bag. This helps stool to slide out of the bag more easily and completely. Contact a health care provider if: You have new or worsening redness, swelling, or pain around your stoma. You have new or increased fluid or blood coming from your stoma. Your stoma feels warm to the touch. You have pus coming from your stoma. Your stoma extends in or out farther than normal. You need to change your bag every day. You have a fever. Get help right away if: Your stool is bloody. You have nausea or you vomit. You have trouble breathing. Summary Measure your stoma opening regularly and record the size. Watch for changes. Empty your bag at bedtime and whenever it is one-third to one-half full. Do not let the bag get more than half-full with stool or gas. Change your bag every 3 4 days or as often as told by your health care provider. Whenever you leave home, take extra clothing and an extra skin barrier and bag with you. This information is not intended to replace advice given to you by your health care provider. Make sure you discuss any questions you have with your health care provider. Document Released: 09/11/2004 Document Revised: 12/30/2019 Document Reviewed: 03/05/2018 [employer] Patient Education 2020 [employer]. Follow Up Care 09/29/2022 19:01:28 With:Jose Raul PHILLIPS Address: [address] [place] [phone] Business (1) When:Within 3 Day(s) [facility]01-07-2023 Evaluation + Plan noteExtracted from: Title:ED Note Author:Alex Sanchez DO Date :09/29/22 Bleeding from colostomy stom a (K94.01: Colostomy hemorrhage) Orders: predniSONE, 40 mg = 2 tab(s), Oral, Daily, X 5 day(s), # 10 tab(s), Refills(s) 0, [facility]: [id number], 167, cm, 09/29/22 19:14:00 EST, Height/Length Dosing, 87, kg, 09/29/22 19:14:00 EST, Weight Dosing predniSONE, 40 mg = 2 tab(s), Tab, Oral, Once, Stop date 09/29/22 20:21:00 EST, STAT, Start date 09/29/22 20:21:00 EST, 09/29/22 20:21:00 EST Automated Diff Basic Metabolic Panel BB Draw & Hold CBC w/ Auto Diff eGFR Hepatic Function Panel Lipase Level PT & PTT UA With Cult Reflex [facility]09-08-2022 Hospital Discharge instructions Patient Education 05/31/2022 00:22:15 Abdominal Pain, Adult, Qqqo-xk-Hpcx Abdominal Pain, Adult Many things can cause belly (abdominal) pain. Most times, belly pain is not dangerous. Many cases of belly pain can be watched and treated at home. Sometimes, though, belly pain is serious. Your doctor will try to find the cause of your belly pain. Follow these instructions at home: Medicines Take iknp-wnj-ocxzfso and prescription medicines only as told by your doctor. Do not take medicines that help you poop (laxatives) unless told by your doctor. General instructions Watch your belly pain for any changes. Drink enough fluid to keep your pee (urine) pale yellow. Keep all follow-up visits as told by your doctor. This is important. Contact a doctor if: Your belly pain changes or gets worse. You are not hungry, or you lose weight without trying. You are having trouble pooping (constipated) or have watery poop (diarrhea) for more than 2 3 days. You have pain when you pee or poop. Your belly pain wakes you up at night. Your pain gets worse with meals, after eating, or with certain foods. You are vomiting and cannot keep anything down. You have a fever. You have blood in your pee. Get help right away if: Your pain does not go away as soon as your doctor says it should. You cannot stop vomiting. Your pain is only in areas of your belly, such as the right side or the left lower part of the belly. You have bloody or black poop, or poop that looks like tar. You have very bad pain, cramping, or bloating in your belly. You have signs of not having enough fluid or water in your body (dehydration), such as: ?Dark pee, very little pee, or no pee. ?Cracked lips. ?Dry mouth. ?Sunken eyes. ?Sleepiness. ?Weakness. You have trouble breathing or chest pain. Summary Many cases of belly pain can be watched and treated at home. Watch your belly pain for any changes. Take wnbp-xsd-vqqrvsu and prescription medicines only as told by your doctor. Contact a doctor if your belly pain changes or gets worse. Get help right away if you have very bad pain, cramping, or bloating in your belly. This information is not intended to replace advice given to you by your health care provider. Make sure you discuss any questions you have with your health care provider. Document Released: 02/25/2009 Document Revised: 01/18/2020 Document Reviewed: 01/18/2020 [employer] Patient Education 2020 [employer]. Follow Up Care 05/30/2022 20:34:27 With:Jose Raul PHILLIPS Address: [address] [place] [phone] Business (1) When:06/03/2022 Comments:Take the pain medication, nausea medication as prescribed as needed for pain. Please follow-up withyour primary care doctor in addition to colorectal surgery for further evaluation and management. Please return to the ED for any new or worsening symptoms. [facility]09-07-2022 Evaluation + Plan noteExtracted from: Title:ED Note Author:Alfred Graham DO Date :05/30/22 Abdominal pain, diffuse (R10 .84: Generalized abdominal pain) N&V (nausea and vomiting) (R11.2: Nausea with vomiting, unspecified) Orders: acetaminophen-hydrocodone, 1 EA, Tab, Oral, Once, Stop date 05/31/22 0:04:00 EDT, STAT, Start date 05/31/22 0:04:00 EDT acetaminophen-hydrocodone, 1 tab(s), Oral, q6hr for pain, 10 tab(s), Refill(s) 0 dicyclomine, 10 mg = 1 cap(s), Oral, QID, X 7 day(s), # 14 cap(s), Refills(s) 0 HYDROmorphone, 0.5 mg = 0.5 mL, Injection, IV Push, Once, Stop date 05/30/22 23:04:00 EDT, STAT, Start date 05/30/22 23:04:00 EDT, 05/30/22 23:04:00 EDT morphine, 4 mg = 2 mL, Injection, IV Push, Once, Stop date 05/30/22 21:02:00 EDT, STAT, Start date 05/30/22 21:02:00 EDT, 05/30/22 21:02:00 EDT ondansetron, 4 mg = 1 tab(s), Oral, q8hr, PRN Nausea/Vomiting, # 12 tab(s), Refills(s) 0 promethazine, 25 mg = 1 supp, Rectal, q6hr, PRN Nausea/Vomiting, # 6 EA, Refills(s) 0 promethazine, 25 mg = 1 tab(s), Tab, Oral, Once, Stop date 05/31/22 0:04:00 EDT, STAT, Start date 05/31/22 0:04:00 EDT, 05/31/22 0:04:00 EDT promethazine, 12.5 mg = 0.5 mL, Injection, IV Push, Once, Stop date 05/30/22 21:02:00 EDT, STAT, Start date 05/30/22 21:02:00 EDT, 05/30/22 21:02:00 EDT Sodium Chloride 0.9% intravenous solution, 1,000 mL, Soln-IV, IV, Once, Stop date 05/30/22 21:02:00 EDT, STAT, Start date 05/30/22 21:02:00 EDT, mL/hr, Infuse over 61, minute(s) Sodium Chloride 0.9% intravenous solution 1,000 mL, 1,000 mL, IV, 983.61 mL/hr, for 30 day(s), Stop date 06/29/22 22:10:00 EDT, STAT, Start date 05/30/22 22:11:00 EDT, 61 minute(s), Total volume (mL): 1,000, 89.5 kg, 2.04, m2 Automated Diff Basic Metabolic Panel Beta hCG Qual CBC w/ Auto Diff CT Abdomen/Pelvis w/ Contrast eGFR Hepatic Function Panel Lactic Acid Lipase Level UA With Cult Reflex [facility]06-08-2022 Hospital Discharge instructions Patient Education 02/27/2022 23:28:55 Constipation, Adult, Zsba-ac-Fszh Constipation, Adult Constipation is when a person: Poops (has a bowel movement) fewer times in a week than normal. Has a hard time pooping. Has poop that is dry, hard, or bigger than normal. Follow these instructions at home: Eating and drinking Eat foods that have a lot of fiber, such as: ?Fresh fruits and vegetables. ?Whole grains. ?Beans. Eat less of foods that are high in fat, low in fiber, or overly processed, such as: ?[place] fries. ?Hamburgers. ?Cookies. ?Candy. ?Soda. Drink enough fluid to keep your pee (urine) clear or pale yellow. General instructions Exercise regularly or as told by your doctor. Go to the restroom when you feel like you need to poop. Do not hold it in. Take gpgz-rpd-arqbyhb and prescription medicines only as told by your doctor. These include any fiber supplements. Do pelvic floor retraining exercises, such as: ?Doing deep breathing while relaxing your lower belly (abdomen). ?Relaxing your pelvic floor while pooping. Watch your condition for any changes. Keep all follow-up visits as told by your doctor. This is important. Contact a doctor if: You have pain that gets worse. You have a fever. You have not pooped for 4 days. You throw up (vomit). You are not hungry. You lose weight. You are bleeding from the anus. You have thin, pencil-like poop (stool). Get help right away if: You have a fever, and your symptoms suddenly get worse. You leak poop or have blood in your poop. Your belly feels hard or bigger than normal (is bloated). You have very bad belly pain. You feel dizzy or you faint. This information is not intended to replace advice given to you by your health care provider. Make sure you discuss any questions you have with your health care provider. Document Released: 02/25/2009 Document Revised: 08/22/2018 Document Reviewed: 02/27/2017 [facility] Patient Education ICU Metrix. Follow Up Care 02/27/2022 19:23:49 With:Jose Raul PHILLIPS Address: [address] [place] [phone] Business (1) When:03/02/2022 [facility]03-28-2022 Evaluation + Plan noteExtracted from: Title:ED Note Author:Lani MARTINEZ III, Jordin Segal Date:12/18/21 1. Anxiety (F41.9: Anxiety d isorder, unspecified) Orders: hydrOXYzine, 1-2 tab(s), Oral, QID, PRN as needed for anxiety, # 20 tab(s), Refills(s) 0, [facility] [place] [address], 168, cm, 12/18/21 3:53:00 EDT, Height/Length Dosing, 102.3, kg, 12/18/21 3:53:00 EDT, Weight Dosing lorazepam, 0.5 mg = 0.25 mL, Injection, IV Push, Once, Stop date 12/18/21 5:00:00 EDT, Routine, Start date 12/18/21 5:00:00 EDT, 12/18/21 4:13:00 EDT Automated Diff Basic Metabolic Panel CBC w/ Auto Diff Consult to Mental Health ECG 12 Lead Adult ED Cardiac Monitoring eGFR Oxygen Saturation Oxygen Therapy PT & PTT Saline Lock Insert Troponin 0 Hr. Troponin 3 Hr. Troponin 6 Hr. Troponin 9 Hr. [facility]03-28-2022 Hospital Discharge instructions Patient Education 12/18/2021 06:34:31 Generalized Anxiety Disorder, Adult Generalized Anxiety Disorder, Adult Generalized anxiety disorder (PARMINDER) is a mental health disorder. People with this condition constantly worry about everyday events. Unlike normal anxiety, worry related to PARMINDER is not triggered by a specific event. These worries also do not fade or get better with time. PARMINDER interferes with life functions, including relationships, work, and school. PARMINDER can vary from mild to severe. People with severe PARMINDER can have intense waves of anxiety with physical symptoms (panic attacks). What are the causes? The exact cause of PARMINDER is not known. What increases the risk? This condition is more likely to develop in: Women. People who have a family history of anxiety disorders. People who are very shy. People who experience very stressful life events, such as the of a loved one. People who have a very stressful family environment. What are the signs or symptoms? People with PARMINDER often worry excessively about many things in their lives, such as their health and family. They may also be overly concerned about: Doing well at work. Being on time. Natural disasters. Friendships. Physical symptoms of PARMINDER include: Fatigue. Muscle tension or having muscle twitches. Trembling or feeling shaky. Being easily startled. Feeling like your heart is pounding or racing. Feeling out of breath or like you cannot take a deep breath. Having trouble falling asleep or staying asleep. Sweating. Nausea, diarrhea, or irritable bowel syndrome (IBS). Headaches. Trouble concentrating or remembering facts. Restlessness. Irritability. How is this diagnosed? Your health care provider can diagnose PARMINDER based on your symptoms and medical history. You will also have a physical exam. The health care provider will ask specific questions about your symptoms, including how severe they are, when they started, and if they come and go. Your health care provider may ask you about your use of alcohol or drugs, including prescription medicines. Your health care provider may refer you to a mental health specialist for further evaluation. Your health care provider will do a thorough examination and may perform additional tests to rule out other possible causes of your symptoms. To be diagnosed with PARMINDER, a person must have anxiety that: Is out of his or her control. Affects several different aspects of his or her life, such as work and relationships. Causes distress that makes him or her unable to take part in normal activities. Includes at least three physical symptoms of PARMINDER, such as restlessness, fatigue, trouble concentrating, irritability, muscle tension, or sleep problems. Before your health care provider can confirm a diagnosis of PARMINDER, these symptoms must be present more days than they are not, and they must last for six months or longer. How is this treated? The following therapies are usually used to treat PARMINDER: Medicine. Antidepressant medicine is usually prescribed for long-term daily control. Antianxiety medicines may be added in severe cases, especially when panic attacks occur. Talk therapy (psychotherapy). Certain types of talk therapy can be helpful in treating PARMINDER by providing support, education, and guidance. Options include: ?Cognitive behavioral therapy (CBT). People learn coping skills and techniques to ease their anxiety. They learn to identify unrealistic or negative thoughts and behaviors and to replace them with positive ones. ?Acceptance and commitment therapy (ACT). This treatment teaches people how to be mindful as a way to cope with unwanted thoughts and feelings. ?Biofeedback. This process trains you to manage your body's response (physiological response) through breathing techniques and relaxation methods. You will work with a therapist while machines are used to monitor your physical symptoms. Stress management techniques. These include yoga, meditation, and exercise. A mental health specialist can help determine which treatment is best for you. Some people see improvement with one type of therapy. However, other people require a combination of therapies. Follow these instructions at home: Take bceg-trt-[id number] and prescription medicines only as told by your health care provider. Try to maintain a normal routine. Try to anticipate stressful situations and allow extra time to manage them. Practice any stress management or self-calming techniques as taught by your health care provider. Do not punish yourself for setbacks or for not making progress. Try to recognize your accomplishments, even if they are small. Keep all follow-up visits as told by your health care provider. This is important. Contact a health care provider if: Your symptoms do not get better. Your symptoms get worse. You have signs of depression, such as: ?A persistently sad, cranky, or irritable mood. ?Loss of enjoyment in activities that used to bring you barney. ?Change in weight or eating. ?Changes in sleeping habits. ?Avoiding friends or family members. ?Loss of energy for normal tasks. ?Feelings of guilt or worthlessness. Get help right away if: You have serious thoughts about hurting yourself or others. If you ever feel like you may hurt yourself or others, or have thoughts about taking your own life,get help right away. You can go to your nearest emergency department or call: Your local emergency services (911 in the [place] A suicide crisis helpline, such as the National Suicide Prevention Lifeline at . Thisis open 24 hours a day. Summary Generalized anxiety disorder (PARMINDER) is a mental health disorder that involves worry that is not triggered by a specific event. People with PARMINDER often worry excessively about many things in their lives, such as their health and family. PARMINDER may cause physical symptoms such as restlessness, trouble concentrating, sleep problems, frequent sweating, nausea, diarrhea, headaches, and trembling or muscle twitching. A mental health specialist can help determine which treatment is best for you. Some people see improvement with one type of therapy. However, other people require a combination of therapies. This information is not intended to replace advice given to you by your health care provider. Make sure you discuss any questions you have with your health care provider. Document Released: 01/04/2014 Document Revised: 08/22/2018 Document Reviewed: 07/30/2017 [facility] Link Patient Education ICU Metrix. Follow Up Care 12/18/2021 03:43:09 With:[facility] Address:Unknown When:12/21/2021 05:24:44 Comments:Make sure to follow-up with [facility]'s counseling as instructed. Return to the emergency room if you develop thoughts of hurting yourself or any new symptoms. With:Jose Raul PHILLIPS Address: [address] [place] [id number] [facility] (1) When:Within 3 Day(s) [facility]11-18-2021 History of Present illness Narrative* Jazmin Godoy RN - 08/10/2021 8:45 AM EST Colostomy changed and patient instructed on procedure with verbalized understanding. [facility] Phone: [phone]) 335-830612-20-2018 History of Past illness Narrative* Problem Noted Date Resolved Date Hypomagnesemia 09/11/2018 09/12/2018 Last Assessment & Plan: Assessment: PLAN: Replete if <1.7 Hyponatremia 09/11/2018 09/12/2018 Last Assessment & Plan: Assessment: PLAN: Replete if <136 documented as of this encounter (statuses as of 01/18/2023) [facility]12[facility] History of Past illness Narrative* Problem Noted Date Resolved Date Hypomagnesemia 09/11/2018 09/12/2018 Last Assessment & Plan: Assessment: PLAN: Replete if <1.7 Hyponatremia 09/11/2018 09/12/2018 Last Assessment & Plan: Assessment: PLAN: Replete if <136 Malnutrition of mild degree 09/11/2018 05/0 09/2022 Abdominal pain 09/10/2018 01/21/2023 Last Assessment & Plan: Assessment: PLAN: Cdiff PCR +, Iv and PO antibiotics antibiotics Continue anxiolytics and analgesics Consult to behavioral medicine and psychiatry Would like to take to OR for Diverting loop ileosostomy, seton drain placement EUA tomorrow Bowel prep today, clears for dinner, NPO at midnigth UPT and T&S. Replace Elytes as needed Encourage OOb and ambulation and IS No skilled C needs at this time. Crohn's colitis 09/09/2018 02/04/2023 Overview: Added automatically from request for surgery [id number] Crohn's disease (regional enteritis) 08/22/2018 02/04/2023 Overview: Added automatically from request for surgery [id number] documented as of this encounter (statuses as of 02/04/2023) [facility] History of Past illness Narrative* Problem Noted Date Resolved Date Hypomagnesemia 09/11/2018 09/12/2018 Last Assessment & Plan: Assessment: PLAN: Replete if <1.7 Hyponatremia 09/11/2018 09/12/2018 Last Assessment & Plan: Assessment: PLAN: Replete if <136 Malnutrition of mild degree 09/11/2018 05/0 09/2022 Abdominal pain 09/10/2018 01/21/2023 Last Assessment & Plan: Assessment: PLAN: Cdiff PCR +, Iv and PO antibiotics antibiotics Continue anxiolytics and analgesics Consult to behavioral medicine and psychiatry Would like to take to OR for Diverting loop ileosostomy, seton drain placement EUA tomorrow Bowel prep today, clears for dinner, NPO at midnigth UPT and T&S. Replace Elytes as needed Encourage OOb and ambulation and IS No skilled HHC needs at this time. Crohn's colitis 09/09/2018 02/04/2023 Overview: Added automatically from request for surgery [id number] Crohn's disease (regional enteritis) 08/22/2018 02/04/2023 Overview: Added automatically from request for surgery [id number] documented as of this encounter (statuses as of 03/06/2023) [facility] History of Past illness Narrative* Problem Noted Date Resolved Date Hypomagnesemia 09/11/2018 09/12/2018 Last Assessment & Plan: Assessment: PLAN: Replete if <1.7 Hyponatremia 09/11/2018 09/12/2018 Last Assessment & Plan: Assessment: PLAN: Replete if <136 Malnutrition of mild degree 09/11/2018 05/0 09/2022 Abdominal pain 09/10/2018 01/21/2023 Last Assessment & Plan: Assessment: PLAN: Cdiff PCR +, Iv and PO antibiotics antibiotics Continue anxiolytics and analgesics Consult to behavioral medicine and psychiatry Would like to take to OR for Diverting loop ileosostomy, seton drain placement EUA tomorrow Bowel prep today, clears for dinner, NPO at midnigth UPT and T&S. Replace Elytes as needed Encourage OOb and ambulation and IS No skilled HHC needs at this time. Crohn's colitis 09/09/2018 02/04/2023 Overview: Added automatically from request for surgery [id number] Crohn's disease (regional enteritis) 08/22/2018 02/04/2023 Overview: Added automatically from request for surgery [id number] documented as of this encounter (statuses as of 03/07/2023) [facility] History of Past illness Narrative* Problem Noted Date Diagnosed Date Resolved Date Hypomagnesemia 09/11/2018 09/12/2018 Last Assessment & Plan: Assessment: PLAN: Replete if <1.7 Hyponatremia 09/11/2018 09/12/2018 Last Assessment & Plan: Assessment: PLAN: Replete if <136 Malnutrition of mild degree 09/11/2018 01/21/2023 Abdominal pain 09/10/2018 01/21/2023 Last Assessment & Plan: Assessment: PLAN: Cdiff PCR +, Iv and PO antibiotics antibiotics Continue anxiolytics and analgesics Consult to behavioral medicine and psychiatry Would like to take to OR for Diverting loop ileosostomy, seton drain placement EUA tomorrow Bowel prep today, clears for dinner, NPO at midnigth UPT and T&S. Replace Elytes as needed Encourage OOb and ambulation and IS No skilled [facility] needs at this time. Crohn's colitis 09/09/2018 02/04/2023 Overview: Added automatically from request for surgery [id number] Crohn's disease (regional enteritis) 08/22/2018 02/04/2023 Overview: Added automatically from request for surgery [id number] documented as of this encounter (statuses as of 04/05/2023) [facility] History of Past illness Narrative* Problem Noted Date Diagnosed Date Resolved Date Hypomagnesemia 09/11/2018 09/12/2018 Last Assessment & Plan: Assessment: PLAN: Replete if <1.7 Hyponatremia 09/11/2018 09/12/2018 Last Assessment & Plan: Assessment: PLAN: Replete if <136 Malnutrition of mild degree 09/11/2018 01/21/2023 Abdominal pain 09/10/2018 01/21/2023 Last Assessment & Plan: Assessment: PLAN: Cdiff PCR +, Iv and PO antibiotics antibiotics Continue anxiolytics and analgesics Consult to behavioral medicine and psychiatry Would like to take to OR for Diverting loop ileosostomy, seton drain placement EUA tomorrow Bowel prep today, clears for dinner, NPO at midnigth UPT and T&S. Replace Elytes as needed Encourage OOb and ambulation and IS No skilled HHC needs at this time. Crohn's colitis 09/09/2018 02/04/2023 Overview: Added automatically from request for surgery [id number] Crohn's disease (regional enteritis) 08/22/2018 02/04/2023 Overview: Added automatically from request for surgery [id number] documented as of this encounter (statuses as of 04/14/2023) [facility] History of Past illness Narrative* Problem Noted Date Diagnosed Date Resolved Date Hypomagnesemia 09/11/2018 09/12/2018 Last Assessment & Plan: Assessment: PLAN: Replete if <1.7 Hyponatremia 09/11/2018 09/12/2018 Last Assessment & Plan: Assessment: PLAN: Replete if <136 Malnutrition of mild degree 09/11/2018 01/21/2023 Abdominal pain 09/10/2018 01/21/2023 Last Assessment & Plan: Assessment: PLAN: Cdiff PCR +, Iv and PO antibiotics antibiotics Continue anxiolytics and analgesics Consult to behavioral medicine and psychiatry Would like to take to OR for Diverting loop ileosostomy, seton drain placement EUA tomorrow Bowel prep today, clears for dinner, NPO at midnigth UPT and T&S. Replace Elytes as needed Encourage OOb and ambulation and IS No skilled HHC needs at this time. Crohn's colitis 09/09/2018 02/04/2023 Overview: Added automatically from request for surgery [id number] Crohn's disease (regional enteritis) 08/22/2018 02/04/2023 Overview: Added automatically from request for surgery [id number] documented as of this encounter (statuses as of 04/18/2023) [facility] History of Past illness Narrative* Problem Noted Date Diagnosed Date Resolved Date Hypomagnesemia 09/11/2018 09/12/2018 Last Assessment & Plan: Assessment: PLAN: Replete if <1.7 Hyponatremia 09/11/2018 09/12/2018 Last Assessment & Plan: Assessment: PLAN: Replete if <136 Malnutrition of mild degree 09/11/2018 01/21/2023 Abdominal pain 09/10/2018 01/21/2023 Last Assessment & Plan: Assessment: PLAN: Cdiff PCR +, Iv and PO antibiotics antibiotics Continue anxiolytics and analgesics Consult to behavioral medicine and psychiatry Would like to take to OR for Diverting loop ileosostomy, seton drain placement EUA tomorrow Bowel prep today, clears for dinner, NPO at midnigth UPT and T&S. Replace Elytes as needed Encourage OOb and ambulation and IS No skilled C needs at this time. Crohn's colitis 09/09/2018 02/04/2023 Overview: Added automatically from request for surgery [id number] Crohn's disease (regional enteritis) 08/22/2018 02/04/2023 Overview: Added automatically from request for surgery [id number] documented as of this encounter (statuses as of 04/30/2023) [facility]: Title:ED Note Author:Jess Gunn PA-C Date:02/28/22 1. Hypokalemia (E87.6: Hypok alemia) 2. Constipation (K59.00: Constipation, unspecified) 3. Foreign body in duodenum (T18.3XXA: Foreign body in small intestine, initial encounter) Orders: HYDROmorphone, 1 mg = 1 mL, Injection, IV Push, Once, Stop date 02/27/22 21:25:00 EDT, STAT, Start date 02/27/22 21:25:00 EDT, 02/27/22 21:25:00 EDT ondansetron, 4 mg = 2 mL, Injection, IV Push, Once, Stop date 02/27/22 21:25:00 EDT, STAT, Start date 02/27/22 21:25:00 EDT, 02/27/22 21:25:00 EDT potassium chloride, 40 mEq = 2 tab(s), Tab-ER, Oral, Once, Stop date 02/27/22 22:53:00 EDT, STAT, Start date 02/27/22 22:53:00 EDT, 02/27/22 22:53:00 EDT Sodium Chloride 0.9% intravenous solution 1,000 mL, 1,000 mL, IV, 1,000 mL/hr, STAT, Start date 02/27/22 21:25:00 EDT, 1 hour(s), Total volume (mL): 1,000, 89.5 kg, 2.04, m2 CT Abdomen/Pelvis w/ Contrast Lactic Acid Patient was interviewed and examined. The appropriate ER work-up was initiated. Patient is given IV fluid hydration. Patient was medicated with ondansetron for nausea, and hydromorphone for discomfort. I discussed the results of the CT scan with the patient. There was a approximate 1.4 cm foreign body seen in the second portion of the duodenum. When I question the patient about this, she states she had a lip piercing in her lower lip that she lost yesterday. She thought it had just fallen out. She was unaware that she had actually swallowed it. She states it does not have a pointed end. I did discuss with the patient the use of MiraLAX a half of a capful daily to get her bowels moving better as there was significant stool burden seen on the CAT scan. The patient will be discharged to home in stable condition. She is to follow-up with her GI specialist. She is to return to the emergency department for any further problems or concerns. Diagnostic Tests Pending * [facility] 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, unspecified History of ileostomy Ileostomy status History of Crohn's disease Personal history of unspecified digestive disease documented in this encounter [employer] Phone: evaluation note* Diagnosis Gastroenteritis- Primary Other and unspecified noninfectious gastroenteritis and colitis documented in this encounter [employer] Phone: [email or web address] note* Diagnosis Diarrhea, unspecified type- Primary [facility] Diagnosis 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)- Primary History of endoscopy Other postprocedural status Imaging of gastrointestinal tract abnormal Nonspecific (abnormal) findings on radiological and other examination of gastrointestinal tract Crohn's colitis, unspecified complication (HCC) [facility]* Diagnosis care, subsequent , second trimester- Primary 22 weeks gestation of state, incidental Screening for diabetes mellitus Crohn's disease of large intestine without complication (HCC) Regional enteritis of large intestine Supervision of high risk , antepartum Need for influenza vaccination Need for prophylactic vaccination and inoculation against influenza Anxiety Anxiety state, unspecified Intractable migraine without status migrainosus, unspecified migraine type Maternal Crohn's disease affecting , antepartum (HCC) [facility]* Diagnosis Encounter for anatomic survey- Primary care, subsequent , second trimester Obesity affecting in second trimester, unspecified obesity type 22 weeks gestation of state, incidental [facility]* Diagnosis care, subsequent , second trimester- Primary 26 weeks gestation of state, incidental Screening for diabetes mellitus General counseling and advice for contraceptive management Other general counseling and advice for contraceptive management Crohn's disease with complication, unspecified gastrointestinal tract location (HCC)- Primary [facility]* Diagnosis care, subsequent , third trimester- Primary 31 weeks gestation of state, incidental 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) Anemia during in third trimester Sterilization consult Other general counseling and advice for contraceptive management Maternal Crohn's disease affecting in third trimester (HCC) 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) Sterilization consult Other general counseling and advice for contraceptive management [facility] Diagnosis Maternal Crohn's disease affecting in third trimester (HCC)- Primary Crohn's disease of colon with complication (HCC) [facility] At risk for depressed mood during period- Primary Lactating mother care and examination of lactating mother [facility] Diagnosis 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)- Primary Crohn's disease of both small and large intestine with intestinal obstruction (HCC) Regional enteritis of small intestine with large intestine Ileostomy prolapse (HCC) Other complication of colostomy or enterostomy [facility] 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)- Primary [facility] Diagnosis Crohn's disease of colon with complication (HCC)- Primary 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) [facility] Diagnosis Crohn's disease of colon with complication (HCC)- Primary 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) [facility] 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)- Primary History of endoscopy Other postprocedural status Imaging of gastrointestinal tract abnormal Nonspecific (abnormal) findings on radiological and other examination of gastrointestinal tract Crohn's colitis, unspecified complication (HCC) Maternal Crohn's disease affecting , antepartum (HCC)- Primary Obesity, Class II, BMI 35-39.9 Obesity, unspecified Anxiety Anxiety state, unspecified History of prior with IUGR Perineal abscess Cellulitis and abscess of trunk Crohn's disease of colon with complication (HCC) Intractable abdominal pain Abdominal pain, unspecified site state Routine follow-up Ileostomy in place (HCC) Ileostomy status Generalized abdominal pain Abdominal pain, generalized 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)- Primary [facility] 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)- Primary History of endoscopy Other postprocedural status Imaging of gastrointestinal tract abnormal Nonspecific (abnormal) findings on radiological and other examination of gastrointestinal tract Crohn's colitis, unspecified complication (HCC) Maternal Crohn's disease affecting , antepartum (HCC)- Primary Obesity, Class II, BMI 35-39.9 Obesity, unspecified Anxiety Anxiety state, unspecified History of prior with IUGR Perineal abscess Cellulitis and abscess of trunk Crohn's disease of colon with complication (HCC) Intractable abdominal pain Abdominal pain, unspecified site state Routine follow-up Ileostomy in place (HCC) Ileostomy status Generalized abdominal pain Abdominal pain, generalized 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)- Primary Crohn's disease with fistula, unspecified gastrointestinal tract location (HCC)- Primary documented in this encounter [facility]* Diagnosis 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)- Primary History of endoscopy Other postprocedural status Imaging of gastrointestinal tract abnormal Nonspecific (abnormal) findings on radiological and other examination of gastrointestinal tract Crohn's colitis, unspecified complication (HCC) Maternal Crohn's disease affecting , antepartum (HCC)- Primary Obesity, Class II, BMI 35-39.9 Obesity, unspecified Anxiety Anxiety state, unspecified History of prior with IUGR Perineal abscess Cellulitis and abscess of trunk Crohn's disease of colon with complication (HCC) Intractable abdominal pain Abdominal pain, unspecified site state Routine follow-up Ileostomy in place (HCC) Ileostomy status Generalized abdominal pain Abdominal pain, generalized 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)- Primary Crohn's disease with fistula, unspecified gastrointestinal tract location (HCC)- Primary documented in this encounter [facility] note* Diagnosis 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)- Primary History of endoscopy Other postprocedural status Imaging of gastrointestinal tract abnormal Nonspecific (abnormal) findings on radiological and other examination of gastrointestinal tract Crohn's colitis, unspecified complication (HCC) Maternal Crohn's disease affecting , antepartum (HCC)- Primary Obesity, Class II, BMI 35-39.9 Obesity, unspecified Anxiety Anxiety state, unspecified History of prior with IUGR Perineal abscess Cellulitis and abscess of trunk Crohn's disease of colon with complication (HCC) Intractable abdominal pain Abdominal pain, unspecified site state Routine follow-up Ileostomy in place (HCC) Ileostomy status Generalized abdominal pain Abdominal pain, generalized 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)- Primary Anal fistula- Primary Crohn's disease with fistula, unspecified gastrointestinal tract location (HCC) documented in this encounter [facility]* Diagnosis 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)- Primary History of endoscopy Other postprocedural status Imaging of gastrointestinal tract abnormal Nonspecific (abnormal) findings on radiological and other examination of gastrointestinal tract Crohn's colitis, unspecified complication (HCC) Maternal Crohn's disease affecting , antepartum (HCC)- Primary Obesity, Class II, BMI 35-39.9 Obesity, unspecified Anxiety Anxiety state, unspecified History of prior with IUGR Perineal abscess Cellulitis and abscess of trunk Crohn's disease of colon with complication (HCC) Intractable abdominal pain Abdominal pain, unspecified site state Routine follow-up Ileostomy in place (HCC) Ileostomy status Generalized abdominal pain Abdominal pain, generalized 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)- Primary Anal fistula- Primary Crohn's disease with fistula, unspecified gastrointestinal tract location (HCC) documented in this encounter [facility] note* Diagnosis 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)- Primary History of endoscopy Other postprocedural status Imaging of gastrointestinal tract abnormal Nonspecific (abnormal) findings on radiological and other examination of gastrointestinal tract Crohn's colitis, unspecified complication (HCC) Maternal Crohn's disease affecting , antepartum (HCC)- Primary Obesity, Class II, BMI 35-39.9 Obesity, unspecified Anxiety Anxiety state, unspecified History of prior with IUGR Perineal abscess Cellulitis and abscess of trunk Crohn's disease of colon with complication (HCC) Intractable abdominal pain Abdominal pain, unspecified site state Routine follow-up Ileostomy in place (HCC) Ileostomy status Generalized abdominal pain Abdominal pain, generalized Anal fistula- Primary Crohn's disease with fistula, unspecified gastrointestinal tract location (HCC) documented in this encounter [facility] Narrative No data available for this section [facility] Attachments The following attachments cannot be sent through Care Everywhere. * [facility] ([place] Work Phone: Hospital Discharge instructions* Attachments The following attachments cannot be sent through Care Everywhere. * [facility] ([place]) [facility]: Hospital Discharge instructions No data available for this section [facility] Progress note No data available for this section [facility] for referral (narrative)* Outpatient Procedure (Routine) - Pending Review Specialty Diagnoses / Procedures Referred By Contac t Referred To Contact [facility] Diagnoses Diarrhea, unspecified type Procedures ILEOSCOPY ENTEROSC >2ND PRTN W/ILEUM W/WO COLLJ SPEC SPX Zhane Quinones MD [address] [place] [address] [facility] [address] [place] [address] Referral ID Status Reason Start Date Expiration Date Visits Requested Visits Authorized [id number] Pending Review Auto-Generat ed Referral 01/18/2023 01/19/2024 1 1 [facility] for referral (narrative)* Diagnostic Procedure Only (Routine) - Authorized Specialty Diagnoses / Procedures Referred By Contac t Referred To Contact [facility] Diagnoses 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) Procedures OBSTETRIC ULTRASOUND WHI US PREG UTERUS AFTER 1ST [place] [address] [place] [address] [address] Referral ID Status Reason Start Date Expiration Date Visits Requested Visits Authorized [id number] Authorized Auto-Generat ed Referral 3 09/04/2024 1 1 [facility] Summary Purpose Family History No Family History Records FoundNo Family History Records FoundNo Family History Records FoundNo Family History Records FoundNo Family History Records Found No data available for this section No data available for this section No data available for this section No data available for this section No data available for this section No Family History Records FoundNo Family History Records FoundNo Family History Records FoundNo Family History Records FoundNo Family History Records FoundNo Family History Records FoundNo Family History Records FoundNo Family History Records FoundNo Family History Records FoundNo Family History Records FoundNo Family History Records FoundNo Family History Records FoundNo Family History Records FoundNo Family History Records FoundNo Family History Records FoundNo Family History Records Found No data available for this section No Family History Records Found No data available for this section No Family History Records FoundNo Family History Records FoundNo Family History Records FoundNo Family History Records FoundNo Family History Records FoundNo Family History Records FoundNo Family History Records FoundNo Family History Records FoundNo Family History Records FoundNo Family History Records FoundNo Family History Records FoundNo Family History Records FoundNo Family History Records Found No data available for this section No data available for this section No Family History Records FoundNo Family History Records FoundNo Family History Records FoundNo Family History Records FoundNo Family History Records FoundNo Family History Records FoundNo Family History Records FoundNo Family History Records FoundNo Family History Records Found No data available for this section No data available for this section No data available for this section No Family History Records FoundNo Family History Records FoundNo Family History Records FoundNo Family History Records FoundNo Family History Records FoundNo Family History Records FoundNo Family History Records FoundNo Family History Records FoundNo Family History Records FoundNo Family History Records Found Advance Directives No Advanced Directives Records Found Date Activated Date Inactivated Comments 01/18/2024 5:38 AM 01/20/2024 9:24 PM Question Answer Comments Full Code Order Discussed With: Patient Date Activated Date Inactivated Comments 04/30/2023 11:51 PM 05/02/2023 6:03 PM Question Answer Comments Full Code Order Discussed With: Patient Date Activated Date Inactivated Comments 01/17/2023 1:26 AM 01/21/2023 8:19 PM Question Answer Comments Full Code Order Discussed With: Patient Documents on File Type Date Recorded Patient Oncology Account Specialist Expl anation ACP-Advance Directive ACP-Power of Bone Char Puller Latest Code Status on File Code Status Date Activated Date Inactivated Comments Full Code 03/14/2016 2:42 AM 03/15/2016 10:29 AM Documents on File Type Date Recorded Patient Oncology Account Specialist Expl anation Advance Directives and Living Will Power of Bone Char Puller Latest Code Status on File Code Status Date Activated Date Inactivated Comments Full Code 03/14/2016 2:42 AM 03/15/2016 10:29 AM Latest Code Status on File Code Status Date Activated Date Inactivated Comments Full Code 01/17/2023 1:26 AM Full Code Order Discussed With: Patient Latest Code Status on File Code Status Date Activated Date Inactivated Comments Full Code 01/17/2023 1:26 AM 01/21/2023 8:19 PM Latest Code Status on File Code Status Date Activated Date Inactivated Comments Full Code 01/17/2023 1:26 AM 01/21/2023 8:19 PM Latest Code Status on File Code Status Date Activated Date Inactivated Comments Full Code 01/17/2023 1:26 AM 01/21/2023 8:19 PM Question Answer Comments Full Code Order Discussed With: Patient Latest Code Status on File Code Status Date Activated Date Inactivated Comments Full Code 04/30/2023 11:51 PM 05/02/2023 6:03 PM Question Answer Comments Full Code Order Discussed With: Patient Code Status History Code Status Date Activated Date Inactivated Comments Full Code 01/17/2023 1:26 AM 01/21/2023 8:19 PM Question Answer Comments Full Code Order Discussed With: Patient Latest Code Status on File Code Status Date Activated Date Inactivated Comments Full Code 04/30/2023 11:51 PM 05/02/2023 6:03 PM Question Answer Comments Full Code Order Discussed With: Patient Code Status History Code Status Date Activated Date Inactivated Comments Full Code 01/17/2023 1:26 AM 01/21/2023 8:19 PM Question Answer Comments Full Code Order Discussed With: Patient Latest Code Status on File Code Status Date Activated Date Inactivated Comments Full Code 04/30/2023 11:51 PM 05/02/2023 6:03 PM Question Answer Comments Full Code Order Discussed With: Patient Code Status History Code Status Date Activated Date Inactivated Comments Full Code 01/17/2023 1:26 AM 01/21/2023 8:19 PM Question Answer Comments Full Code Order Discussed With: Patient Date Activated Date Inactivated Comments 04/30/2023 11:51 PM 05/02/2023 6:03 PM Date Activated Date Inactivated Comments 01/17/2023 1:26 AM 01/21/2023 8:19 PM Date Activated Date Inactivated Comments 01/18/2024 5:38 AM 01/20/2024 9:24 PM Question Answer Comments Full Code Order Discussed With: Patient Date Activated Date Inactivated Comments 04/30/2023 11:51 PM 05/02/2023 6:03 PM Question Answer Comments Full Code Order Discussed With: Patient Date Activated Date Inactivated Comments 01/17/2023 1:26 AM 01/21/2023 8:19 PM Question Answer Comments Full Code Order Discussed With: Patient Discharge Instructions * Attachments The following attachments cannot be sent through Care Everywhere. * Abdominal Pain ([place]) * Crohn's Disease ([place]) documented in this encounter* Attachments The following attachments cannot be sent through Care Everywhere. * Ulcerative Colitis ([place]) * Abdominal Pain ([place]) documented in this encounter Assessments Diagnosis Acute Crohn's disease without complication (HCC) Generalized abdominal pain Abdominal pain, generalized Diagnosis Abdominal pain, unspecified abdominal location Exacerbation of ulcerative colitis with rectal bleeding (HCC) Reason for Referral Specialty Diagnoses / Procedures Referred By Contac t Referred To Contact Diagnoses care, subsequent , second trimester Crohn's disease of large intestine without complication (HCC) Procedures CONSULT TO MATERNAL MEDI OFFICE/OUTPATIENT [facility] 60-[place] [address] [place] [address] Referral ID Status Reason Start Date Expiration Date Visits Requested Visits Authorized [id number] Authorized PCP Requested Referral Auto-Generate d Referral 3 07/03/2024 1 1 Specialty Diagnoses / Procedures Referred By Contac t Referred To Contact 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) Procedures CONSULT TO [facility] OFFICE/OUTPATIENT [facility] 60-74 MINUTES Rut Lagos MD [address] [place] [address] Lou Colvin, PhD [address] [place] [address] Referral ID Status Reason Start Date Expiration Date Visits Requested Visits Authorized [id number] Authorized PCP Requested Referral 02/04/2023 02/04/2024 1 1 Specialty Diagnoses / Procedures Referred By Sandra jaimes Referred To Contact Nutrition Diagnoses 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) Procedures CONSULT TO NUTRITION THERAPY MEDICAL NUTRITION ASSMT&IVNTJ INDIV EACH 15 NE MEDICAL NUTRITION ASSMT&IVNTJ INDIV EACH 15 NE MEDICAL NUTRITION ASSMT&IVNTJ INDIV EACH 15 NE MEDICAL NUTRITION ASSMT&IVNTJ INDIV EACH 15 NE Rut Lagos MD [address] [place] [address] Referral ID Status Reason Start Date Expiration Date Visits Requested Visits Authorized [id number] Authorized PCP Requested Referral 02/04/2023 02/04/2024 1 1 Health Concerns Problem Noted Date Diagnosed Date [facility] Education - COMMON 07/04/2023 Education - [place] 07/04/2023 Problem Noted Date Diagnosed Date [facility] Education - [facility] 07/04/2023 Education - [place] 07/04/2023 Problem Noted Date Diagnosed Date [facility] Education - COMMON 07/04/2023 Education - [place] 07/04/2023 Problem Noted Date Diagnosed Date [facility] Education - [facility] 07/04/2023 Education - [place] 07/04/2023 Problem Noted Date Diagnosed Date [facility] Education - COMMON 07/04/2023 Education - [place] 07/04/2023 Problem Noted Date Diagnosed Date [facility] Education - [facility] 07/04/2023 Education - [place] 07/04/2023 Problem Noted Date Diagnosed Date [facility] Education - COMMON 07/04/2023 Education - [place] 07/04/2023 Problem Noted Date Diagnosed Date [facility] Education - COMMON 07/04/2023 Education - [place] 07/04/2023 Problem Noted Date Diagnosed Date [facility] Education - COMMON 07/04/2023 Education - [place] 07/04/2023 Problem Noted Date Diagnosed Date [facility] Education - [facility] 07/04/2023 Education - [place] 07/04/2023 Active Problems Noted Date Diagnosed Date [place] [employer] Aide 10/27/2023 Additional Source Comments INFORMATION SOURCE (unrecogn ized section and content) DATE CREATED AUTHOR 07/23/2019 [facility] DATE CREATED AUTHOR AUTHOR'S BHAVANIIZ ATION 10/31/2021 [facility] DATE CREATED AUTHOR AUTHOR'S ORGANIZ ATION 12/27/2022 Shellie reardon DATE CREATED AUTHOR AUTHOR'S ORGANIZ ATION 05/07/2023 [facility] DATE CREATED AUTHOR AUTHOR'S ORGANIZ ATION 06/08/2023 [facility] DATE CREATED AUTHOR AUTHOR'S ORGANIZ ATION 03/05/2024 [facility] DATE CREATED AUTHOR AUTHOR'S ORGANIZ ATION 03/08/2024 [facility] DATE CREATED AUTHOR AUTHOR'S ORGANIZ ATION 03/13/2024 [facility] DATE CREATED AUTHOR AUTHOR'S ORGANIZ ATION 04/12/2024 [facility] DATE CREATED AUTHOR AUTHOR'S ORGANIZ ATION 07/02/2024 [facility] DATE CREATED AUTHOR AUTHOR'S ORGANIZ ATION 07/15/2024 [facility] DATE CREATED AUTHOR AUTHOR'S ORGANIZ ATION 07/19/2024 [facility] DATE CREATED AUTHOR AUTHOR'S ORGANIZ ATION 07/28/2024 [facility] DATE CREATED AUTHOR AUTHOR'S ORGANIZ ATION 08/15/2024 [facility] DATE CREATED AUTHOR AUTHOR'S ORGANIZ ATION 10/07/2024 [facility] DATE CREATED AUTHOR AUTHOR'S ORGANIZ ATION 10/17/2024 [facility] Reason for Visit (unrecogniz ed section and content) Reason Comments Abdominal Pain Pt has hx of chrons, woke up this morning at 0400 with severe abdominal pain, nausea and vomiting. Reason Comments Rectal Bleeding has Chrons disease s arleth 2013. Noticed bright red blood approximately 3 hours ago. Not alot. Also having cramping x 2 days. Reason Comments Other Pt has ileostomy rell t was placed approx 3 years ago. Pt states that this am she woke up with pain in her ileostomy and blood around her stoma. Reason Comments Abdominal Pain Pt has history of Ch conor's. Has had an Ostomy for about 3 years but has been having BM's rectally with severe abdominal pain for the past 2 days Reason Comments New Patient Crohn's Reason Comments Medication Authorization Cortifoam 10% f oam requires PA Reason Comments Patient Update Reason Comments Appointment Reason Comments Appointment Patient Update University Demonstrator - Other Reason Onset Date Comments 04/30/2023 Reason Comments PRAF 1st risk as sessment form submitted at 22.2 wks. Lynn Pena RN Reason Onset Date Comments New Patient Care First OB visit - - LMP 01/30/23 -- no care for OB due to Crohn's treatments -- 2020 pap NEG per pt Immunizations 07/04/2023 Flu vaccination Reason Comments US Specialty Diagnoses / Procedures Referred By Contac t Referred To Contact [facility] Diagnoses care, subsequent , second trimester Procedures OBSTETRIC ULTRASOUND WHI US PREG UTERUS AFTER 1ST [place] [address] [place] [address] [address] Referral ID Status Reason Start Date Expiration Date V isits Requested Visits Authorized [id number] Closed Auto-Generate d Referral 07/04/2023 07/03/2024 1 1 Reason Comments Refill Request Reason Comments Care Reason Comments University Demonstrator - Other PRAF Reason Comments cramping Bleeding With Reason Comments Care Specialty Diagnoses / Procedures Referred By Contac t Referred To Contact [facility] Diagnoses Crohn's disease of colon with complication (HCC) Procedures OBSTETRIC ULTRASOUND WHI US PREG UTERUS AFTER 1ST [place] [address] [place] [address] [facility] [address] [place] [address] Referral ID Status Reason Start Date Expiration Date V isits Requested Visits Authorized [id number] Closed Auto-Generate d Referral 10/03/2023 10/02/2024 1 1 Reason Comments Early Reason Comments University Demonstrator - Other Reason Onset Date Comments Appointment 01/20/2024 Reason Comments Follow Up Hospital discharge f /u Reason Onset Date Comments SPP Inflammatory Conditions - Treatment Referral 02/26/2024 [employer] Insurance Authorization 02/26/2024 PA submi tted Reason Comments Orders [employer] University Demonstrator - Other Specialty Diagnoses / Procedures Referred By Contac t Referred To Contact Diagnoses Crohn's disease of colon with complication (HCC) 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) Procedures INJECTION, [place] [address] [place] [address] [facility] [address] [address] [place] [address] Referral ID Status Reason Start Date Expiration Date V isits Requested Visits Authorized [id number] Authorized 02/25/2024 05/29/2024 3 3 Reason Comments Follow Up Needs OV Reason Onset Date Comments SPP Inflammatory Conditions - Medication Refill 05/15/2024 Enty[facility]io Reason Onset Date Comments SPP Inflammatory Conditions - Follow-up 06/12/20 [employer] Insurance Authorization 06/12/2024 CHEVY jones approved for 1 month Reason Onset Date Comments SPP Inflammatory Conditions - Medication Refill 06/12/2024 Entyvio Reason Onset Date Comments SPP Inflammatory Conditions - Follow-up 07/01/20 [employer] Insurance Authorization 07/01/2024 CHEVY jones approved Reason Onset Date Comments SPP Inflammatory Conditions - Medication Refill 07/13/2024 Entyvio Reason Comments Follow Up Cele anal abscess Scheduled Active and Recently Administ ered Medications (unrecognized section and content) Medication Order 08/08/2021 08/09/2021 08/10/2021 miconazole (MICOTIN) 2 % powder Topical, ONCE, On Umu 08/10/21 at 0830, For 1 dose, Apply to ostomy site. Substituted for Nystatin (MICOSTATIN) powder. 0830 (Due) Scheduled Medication Order 12/22/2022 12/23/2022 12/24/2022 0.9 % sodium chloride bolus (COMPLETED) 1,000 mL (10.5 mL/kg), IntraVENous, at 495.9 mL/hr, Administer over 121 Minutes, ONCE, On Sat12/24/22 at 1530, For 1 dose 1623 (New Bag - Prov ider: Kaylyn Sandhu RN)1820 (Stopped - Provider: Katie White RN) morphine sulfate (PF) injection 4 mg (COMPLETED) 4 mg, IntraVENous, NOW, 1 dose, On Sat12/24/22 at 1530, If oral and IV narcotics ordered, use oral first and only use IV if oral is ineffective or cannot take oral. Do Not give oral and IV within 1 hour of each other unless specifically ordered. 1629 (Given - Provid er: Kaylyn Sandhu RN) ondansetron (ZOFRAN) injection 4 mg (COMPLETED) 4 mg, IntraVENous, ONCE, 1 dose, On Sat12/24/22 at 1530 1624 (Given - Provid er: Kaylyn Sandhu RN) PRN Medication Order 12/22/2022 12/23/2022 12/24/2022 iopamidol (ISOVUE-370) 76 % injection 75 mL (COMPLETED) 75 mL, IntraVENous, IMG ONCE PRN, 1 dose, Starting on Sat12/24/22 at 1645, Until Sat12/24/22 at 1727, Other 1727 (Given - Provid er: Keysha Anthony) Care Teams (unrecognized sec tion and content) Laborer [employer] Joist Relationship Specialty Start Date End Date Jose Raul Phillips PA [address] [place] [address] [place] [address] PCP - General 09/10/16 [employer] Joist Relationship Specialty Start Date End Date Kale Rendon MD PCP - General Family Medicine 01/15/17 Karlos Rawls MD Gastroenterology 01/15/17 Laborer [employer] Joist Relationship Specialty Start Date End Date Kale Rendon MD PCP - General Family Medicine 01/15/17 Karlos Rawls MD Gastroenterology 01/15/17 Laborer [employer] Joist Relationship Specialty Start Date End Date Kale Rendon MD PCP - General Family Medicine 01/15/17 Karlos Rawls MD Gastroenterology 01/15/17 Laborer [employer] Joist Relationship Specialty Start Date End Date Kale Rendon MD PCP - General Family Medicine 01/15/17 Karlos Rawls MD Gastroenterology 01/15/17 Laborer Adjustable [employer] Joist Relationship Specialty Start Date End Date Kale Rendon MD PCP - General Family Medicine 01/15/17 Karlos Rawls MD Gastroenterology 01/15/17 Laborer [employer]able [employer] Joist Relationship Specialty Start Date End Date Kale Rendon MD PCP - General Family Medicine 01/15/17 Karlos Rawls MD Gastroenterology 01/15/17 Laborer [employer]able [employer] Joist Relationship Specialty Start Date End Date Kale Rendon MD PCP - General Family Medicine 01/15/17 Karlos Rawls MD Gastroenterology 01/15/17 Laborer [employer]able [employer] Joist Relationship Specialty Start Date End Date Kale Rendon MD PCP - General Family Medicine 01/15/17 Karlos Rawls MD Gastroenterology 01/15/17 Laborer Adjustable Steel Joist Relationship Specialty Start Date End Date Kale Rendon MD PCP - General Family Medicine 01/15/17 Karlos Rawls MD Gastroenterology 01/15/17 Laborer Adjustable [employer] Joist Relationship Specialty Start Date End Date Kale Rendon MD PCP - General Family Medicine 01/15/17 Karlos Rawls MD Gastroenterology 01/15/17 Laborer Adjustable [employer] Joist Relationship Specialty Start Date End Date Kale Rendon MD PCP - General Family Medicine 01/15/17 Karlos Rawls MD Gastroenterology 01/15/17 Laborer Adjustable [employer] Joist Relationship Specialty Start Date End Date Kale Rendon MD PCP - General Family Medicine 01/15/17 Karlos Rawls MD Gastroenterology 01/15/17 Laborer Adjustable [employer] Joist Relationship Specialty Start Date End Date Kale Rendon MD PCP - General Family Medicine 01/15/17 Karlos Rawls MD Gastroenterology 01/15/17 Laborer Adjustable [employer] Joist Relationship Specialty Start Date End Date Kale Rendon MD PCP - General Family Medicine 01/15/17 Karlos Rawls MD Gastroenterology 01/15/17 Laborer Adjustable [employer] Joist Relationship Specialty Start Date End Date Kale Rendon MD PCP - General Family Medicine 01/15/17 Karlos Rawls MD Gastroenterology 01/15/17 Laborer Adjustable [employer] Joist Relationship Specialty Start Date End Date Kale Rendon MD PCP - General Family Medicine 01/15/17 Karlos Rawls MD Gastroenterology 01/15/17 Laborer Adjustable [employer] Joist Relationship Specialty Start Date End Date Kale Rendon MD PCP - General Family Medicine 01/15/17 Karlos Rawls MD Gastroenterology 01/15/17 Laborer Adjustable [employer] Joist Relationship Specialty Start Date End Date Kale Rendon MD PCP - General Family Medicine 01/15/17 Karlos Rawls MD Gastroenterology 01/15/17 Laborer Adjustable [employer] Joist Relationship Specialty Start Date End Date Kale Rendon MD PCP - General Family Medicine 01/15/17 Karlos Rawls MD Gastroenterology 01/15/17 Laborer Adjustable [employer] Joist Relationship Specialty Start Date End Date Kale Rendon MD PCP - General Family Medicine 01/15/17 Karlos Rawls MD Gastroenterology 01/15/17 Laborer Adjustable [employer] Joist Relationship Specialty Start Date End Date Kale Rendon MD PCP - General Family Medicine 01/15/17 Karlos Rawls MD Gastroenterology 01/15/17 Laborer Adjustable [employer] Joist Relationship Specialty Start Date End Date Kale Rendon MD PCP - General Family Medicine 01/15/17 Karlos Rawls MD Gastroenterology 01/15/17 Laborer Adjustable [employer] Joist Relationship Specialty Start Date End Date Kale Rendon MD PCP - General Family Medicine 01/15/17 Karlos Rawls MD Gastroenterology 01/15/17 Laborer Adjustable [employer] Joist Relationship Specialty Start Date End Date Kale Rendon MD PCP - General Family Medicine 01/15/17 Karlos Rawls MD Gastroenterology 01/15/17 Laborer Adjustable [employer] Joist Relationship Specialty Start Date End Date Kale Rendon MD PCP - General Family Medicine 01/15/17 Karlos Rawls MD Gastroenterology 01/15/17 Zaira Campbell, [facility] 04/21/24 Laborer Adjustable Steel Joist Relationship Specialty Start Date End Date Kale Rendon MD PCP - General Family Medicine 01/15/17 Karlos Rawls MD Gastroenterology 01/15/17 Zaira Campbell, [facility] 04/21/24 Laborer Adjustable Steel Joist Relationship Specialty Start Date End Date Kale Rendon MD PCP - General Family Medicine 01/15/17 Karlos Rawls MD Gastroenterology 01/15/17 Zaira Campbell, [facility] 04/21/24 Laborer Adjustable Steel Joist Relationship Specialty Start Date End Date Kale Rendon MD PCP - General Family Medicine 01/15/17 Karlos Rawls MD Gastroenterology 01/15/17 Zaira Campbell, [facility] 04/21/24 Laborer Adjustable [employer] Joist Relationship Specialty Start Date End Date Kale Rendon MD PCP - General Family Medicine 01/15/17 Karlos Rawls MD Gastroenterology [facility]15[facility] Laborer Adjust[employer] Joist Relationship Specialty Start Date End Date Kale Rendon MD PCP - General Family Medicine 01/15/17 Karlos Rawls MD Gastroenterology 01/15/17 [facility] Laborer Adjustable [employer] Joist Relationship Specialty Start Date End Date Kale Rendon MD PCP - General Family Medicine 01/15/17 Karlos Rawls MD Gastroenterology 01/15/17 [facility] Ordered Prescriptions (unrec ognized section and content) Prescription Sig Dispensed Refills Start Date End Da te dicyclomine (BENTYL) 20 MG tablet Take 1 tablet by mouth every 6 hours as needed (abd pain) 10 tablet 0 12/24/2022 Source Comments (unrecognize d section and content) In the event this informatio n is protected by the Federal Confidentiality of Alcohol and Drug Abuse Patient Records regulations: The Federal rules restrict any use of the information to criminally investigate or prosecute any alcohol or drug abuse patient.[facility] SystemIn the event this information is protected by the Federal Confidentiality of Alcohol and Drug Abuse Patient Records regulations: The Federal rules restrict any use of the information to criminally investigate or prosecute any alcohol or drug abuse patient.[facility] SystemIn the event this information is protected by the Federal Confidentiality of Alcohol and Drug Abuse Patient Records regulations: The Federal rules restrict any use of the information to criminally investigate or prosecute any alcohol or drug abuse patient.[facility] SystemIn the event this information is protected by the Federal Confidentiality of Alcohol and Drug Abuse Patient Records regulations: The Federal rules restrict any use of the information to criminally investigate or prosecute any alcohol or drug abuse patient.[facility] SystemIn the event this information is protected by the Federal Confidentiality of Alcohol and Drug Abuse Patient Records regulations: The Federal rules restrict any use of the information to criminally investigate or prosecute any alcohol or drug abuse patient.[facility] SystemIn the event this information is protected by the Federal Confidentiality of Alcohol and Drug Abuse Patient Records regulations: The Federal rules restrict any use of the information to criminally investigate or prosecute any alcohol or drug abuse patient.[facility] SystemIn the event this information is protected by the Federal Confidentiality of Alcohol and Drug Abuse Patient Records regulations: The Federal rules restrict any use of the information to criminally investigate or prosecute any alcohol or drug abuse patient.[facility] SystemIn the event this information is protected by the Federal Confidentiality of Alcohol and Drug Abuse Patient Records regulations: The Federal rules restrict any use of the information to criminally investigate or prosecute any alcohol or drug abuse patient.[facility] SystemIn the event this information is protected by the Federal Confidentiality of Alcohol and Drug Abuse Patient Records regulations: The Federal rules restrict any use of the information to criminally investigate or prosecute any alcohol or drug abuse patient.[facility] SystemIn the event this information is protected by the Federal Confidentiality of Alcohol and Drug Abuse Patient Records regulations: The Federal rules restrict any use of the information to criminally investigate or prosecute any alcohol or drug abuse patient.[facility] SystemIn the event this information is protected by the Federal Confidentiality of Alcohol and Drug Abuse Patient Records regulations: The Federal rules restrict any use of the information to criminally investigate or prosecute any alcohol or drug abuse patient.[facility] SystemIn the event this information is protected by the Federal Confidentiality of Alcohol and Drug Abuse Patient Records regulations: The Federal rules restrict any use of the information to criminally investigate or prosecute any alcohol or drug abuse patient.[facility] SystemIn the event this information is protected by the Federal Confidentiality of Alcohol and Drug Abuse Patient Records regulations: The Federal rules restrict any use of the information to criminally investigate or prosecute any alcohol or drug abuse patient.[facility] SystemIn the event this information is protected by the Federal Confidentiality of Alcohol and Drug Abuse Patient Records regulations: The Federal rules restrict any use of the information to criminally investigate or prosecute any alcohol or drug abuse patient.[facility] SystemIn the event this information is protected by the Federal Confidentiality of Alcohol and Drug Abuse Patient Records regulations: The Federal rules restrict any use of the information to criminally investigate or prosecute any alcohol or drug abuse patient.[facility] SystemIn the event this information is protected by the Federal Confidentiality of Alcohol and Drug Abuse Patient Records regulations: The Federal rules restrict any use of the information to criminally investigate or prosecute any alcohol or drug abuse patient.[facility] SystemIn the event this information is protected by the Federal Confidentiality of Alcohol and Drug Abuse Patient Records regulations: The Federal rules restrict any use of the information to criminally investigate or prosecute any alcohol or drug abuse patient.[facility] SystemIn the event this information is protected by the Federal Confidentiality of Alcohol and Drug Abuse Patient Records regulations: The Federal rules restrict any use of the information to criminally investigate or prosecute any alcohol or drug abuse patient.[facility] SystemIn the event this information is protected by the Federal Confidentiality of Alcohol and Drug Abuse Patient Records regulations: The Federal rules restrict any use of the information to criminally investigate or prosecute any alcohol or drug abuse patient.[facility] SystemIn the event this information is protected by the Federal Confidentiality of Alcohol and Drug Abuse Patient Records regulations: The Federal rules restrict any use of the information to criminally investigate or prosecute any alcohol or drug abuse patient.[facility] SystemIn the event this information is protected by the Federal Confidentiality of Alcohol and Drug Abuse Patient Records regulations: The Federal rules restrict any use of the information to criminally investigate or prosecute any alcohol or drug abuse patient.[facility] SystemIn the event this information is protected by the Federal Confidentiality of Alcohol and Drug Abuse Patient Records regulations: The Federal rules restrict any use of the information to criminally investigate or prosecute any alcohol or drug abuse patient.[facility] SystemIn the event this information is protected by the Federal Confidentiality of Alcohol and Drug Abuse Patient Records regulations: The Federal rules restrict any use of the information to criminally investigate or prosecute any alcohol or drug abuse patient.[facility] SystemIn the event this information is protected by the Federal Confidentiality of Alcohol and Drug Abuse Patient Records regulations: The Federal rules restrict any use of the information to criminally investigate or prosecute any alcohol or drug abuse patient.[facility] SystemIn the event this information is protected by the Federal Confidentiality of Alcohol and Drug Abuse Patient Records regulations: The Federal rules restrict any use of the information to criminally investigate or prosecute any alcohol or drug abuse patient.[facility] SystemIn the event this information is protected by the Federal Confidentiality of Alcohol and Drug Abuse Patient Records regulations: The Federal rules restrict any use of the information to criminally investigate or prosecute any alcohol or drug abuse patient.[facility] SystemIn the event this information is protected by the Federal Confidentiality of Alcohol and Drug Abuse Patient Records regulations: The Federal rules restrict any use of the information to criminally investigate or prosecute any alcohol or drug abuse patient.[facility] SystemIn the event this information is protected by the Federal Confidentiality of Alcohol and Drug Abuse Patient Records regulations: The Federal rules restrict any use of the information to criminally investigate or prosecute any alcohol or drug abuse patient.[facility] SystemIn the event this information is protected by the Federal Confidentiality of Alcohol and Drug Abuse Patient Records regulations: The Federal rules restrict any use of the information to criminally investigate or prosecute any alcohol or drug abuse patient.[facility] SystemIn the event this information is protected by the Federal Confidentiality of Alcohol and Drug Abuse Patient Records regulations: The Federal rules restrict any use of the information to criminally investigate or prosecute any alcohol or drug abuse patient.[facility] SystemIn the event this information is protected by the Federal Confidentiality of Alcohol and Drug Abuse Patient Records regulations: The Federal rules restrict any use of the information to criminally investigate or prosecute any alcohol or drug abuse patient.[facility] SystemIn the event this information is protected by the Federal Confidentiality of Alcohol and Drug Abuse Patient Records regulations: The Federal rules restrict any use of the information to criminally investigate or prosecute any alcohol or drug abuse patient.[facility] SystemIn the event this information is protected by the Federal Confidentiality of Alcohol and Drug Abuse Patient Records regulations: The Federal rules restrict any use of the information to criminally investigate or prosecute any alcohol or drug abuse patient.[facility] SystemIn the event this information is protected by the Federal Confidentiality of Alcohol and Drug Abuse Patient Records regulations: The Federal rules restrict any use of the information to criminally investigate or prosecute any alcohol or drug abuse patient.[facility] SystemIn the event this information is protected by the Federal Confidentiality of Alcohol and Drug Abuse Patient Records regulations: The Federal rules restrict any use of the information to criminally investigate or prosecute any alcohol or drug abuse patient.[facility] SystemIn the event this information is protected by the Federal Confidentiality of Alcohol and Drug Abuse Patient Records regulations: The Federal rules restrict any use of the information to criminally investigate or prosecute any alcohol or drug abuse patient.[facility] SystemIn the event this information is protected by the Federal Confidentiality of Alcohol and Drug Abuse Patient Records regulations: The Federal rules restrict any use of the information to criminally investigate or prosecute any alcohol or drug abuse patient.[facility] SystemIn the event this information is protected by the Federal Confidentiality of Alcohol and Drug Abuse Patient Records regulations: The Federal rules restrict any use of the information to criminally investigate or prosecute any alcohol or drug abuse patient.[facility] SystemIn the event this information is protected by the Federal Confidentiality of Alcohol and Drug Abuse Patient Records regulations: The Federal rules restrict any use of the information to criminally investigate or prosecute any alcohol or drug abuse patient.[facility] SystemIn the event this information is protected by the Federal Confidentiality of Alcohol and Drug Abuse Patient Records regulations: The Federal rules restrict any use of the information to criminally investigate or prosecute any alcohol or drug abuse patient.[facility] SystemIn the event this information is protected by the Federal Confidentiality of Alcohol and Drug Abuse Patient Records regulations: The Federal rules restrict any use of the information to criminally investigate or prosecute any alcohol or drug abuse patient.[facility] <item> Privacy Markings (unrecogniz ed section and content) Section Author: Maryana Castillo PROHIBITION ON REDISCLOSURE OF CONFIDENTIAL INFORMATION This notice accompanies a disclosure of information concerning a client made to you with the consent of such client. FOR RECORDS PERTAINING TO PATIENTS WHO ARE OR HAVE BEEN ENROLLED IN A CHEMICAL DEPENDENCY/SUBSTANCEABUSE PROGRAM, SOME INFORMATION MAY BE OMITTED. This clinical summary was aggregated from multiple sources. Caution should be exercised in using it in the provision of clinical care. This summary normalizes information from multiple sources, and as a consequence, information in this document may materially change the coding, format and clinical context of patient data. In addition, data may be omitted in some cases. CLINICAL DECISIONS SHOULD BE BASED ON THE PRIMARY CLINICAL RECORDS. [facility] provides no warranty or guarantee of the accuracy or completeness of information in this document.
--- NOTE | 2024-10-24 17:44 | ECG_ITS ---
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
[2024-10-24 18:06] LABS: Basophils Percent Auto 0.5 % (0.2-2.0); Eosinophils Absolute Auto 0.1 10^3/uL (0.0-0.7); Eosinophils Percent Auto 0.9 % (0.9-7.0); Immature Granulocytes Abs Auto 0.05 10^3/uL (0.00-0.03); Immature Granulocytes Pct Auto 0.6 % (0.0-0.5); Lymphocytes Absolute Auto 0.9 10^3/uL (1.2-3.8); Lymphocytes Percent Auto 10.1 % (20.5-60.0); Mean Corpuscular HGB Conc 30.6 g/dL (29.9-35.2); Mean Corpuscular Hemoglobin 27.2 pg (26.7-34.0); Mean Corpuscular Volume 88.9 fL (81.0-99.0); Mean Platelet Volume 8.8 fL (9.5-13.5); Monocytes Absolute Auto 0.7 10^3/uL (0.3-0.8); Monocytes Percent Auto 7.7 % (1.7-12.0); Neutrophils Percent Auto 80.2 % (43.0-75.0); Platelet Count 450 10^3/uL (150-450); Red Blood Count 4.05 10^6/uL (4.20-5.40); Red Cell Distribution Width 17.5 % (11.0-15.0); White Blood Count 8.7 10^3/uL (4.0-11.0)
[2024-10-24 18:20] LABS: HCG Qualitative NEGATIVE (NEGATIVE); Internal Control Within Normal Limits
[2024-10-24] MEDS: 0.9 % SODIUM CHLORIDE 1,000 ML 1000 ML IV ×2 (18:22→18:58)
[2024-10-24 18:25] LABS: Alanine Aminotransferase 14 U/L (14-59); Albumin Globulin Ratio 0.2; Albumin Level 1.1 g/dL (3.4-5.0); Alkaline Phosphatase 177 U/L (46-116); Anion Gap 11.4; Aspartate Amino Transferase 21 U/L (15-37); BUN Creatinine Ratio 10.8; Bilirubin Total 0.3 mg/dL (0.2-1.0); Calcium 7.3 mg/dL (8.5-10.1); Carbon Dioxide 28.7 mmol/L (21.0-32.0); Chloride 101 mmol/L (98-107); Estimated GFR (African America >60 (>=60 mL/min/1.73m^2); Estimated GFR (Non-African Ame 58 (>=60 mL/min/1.73m^2); Globulin 4.9 g/dL; Glucose 105 mg/dL (74-106); Lactate/Lactic Acid 1.9 mmol/L (0.4-2.0); Potassium 3.1 mmol/L (3.5-5.1); Sodium 138 mmol/L (136-145); Troponin I High Sensitivity <4.0 pg/mL (4.0-51.3)
--- NOTE | 2024-10-24 18:32 | ED_ITS ---
HPI HPI - General Adult General Chief complaint: Abdominal Pain Stated complaint: Abdominal Pain Time Seen by Provider: 10/24/24 17:24 Source: patient Mode of arrival: walk-in Limitations: no limitations History of Present Illness HPI narrative: The patient is coming to the ER with a history of 3 months exacerbation of her Crohn's, patient mentioned that she will see some blood sometimes that when she is wiping rectally and she was noticing that more with mostly a pinkish blood, the patient does not notice any blood in the ileostomy bag , the patient also is complaining generalized abdominal pain mostly left lower She mentioned that she is in pain management but she still in pain and the pain is generalized The patient also complained of dizziness with movement Related Data Home Medications ?Medication ?Instructions ?Recorded ?Confirmed buspirone 10 mg tablet 10 mg PO TID 05/18/24 10/24/24 prednisone 20 mg tablet 20 mg PO DAILY 05/18/24 05/18/24 hydroxyzine pamoate 100 mg capsule 100 mg PO Q8H PRN nausea and 10/24/24 10/24/24 vomiting promethazine 25 mg tablet 25 mg Q12H PRN nausea and vomiting 10/24/24 Previous Rx's ?Medication ?Instructions ?Recorded ondansetron HCl 4 mg tablet 4 mg PO Q6H PRN nausea and 05/22/23 vomiting #10 tabs ciprofloxacin HCl 500 mg tablet 500 mg PO Q12H #20 tabs 05/12/24 metronidazole 500 mg tablet 500 mg PO TID 10 days #30 tabs 05/12/24 tramadol 50 mg tablet 50 mg PO Q8H PRN pain #9 tabs 05/18/24 Allergies Allergy/AdvReac Type Severity Reaction Status Date / Time No Known Drug Allergies Allergy Verified 05/21/23 23:12 Opioid HPI Opioid Management Most Recent Opioid Data: Last Pain Scale 10 10/24/24 18:40 10/24/24 Review of Systems 2 ROS Status of ROS 10 or more systems reviewed and unremark able except as noted in history and below PFSH PFS Medical History (Updated 05/18/24 @ 17:14 by Katie Kurtz) Ileostomy in place ?Z93.2 - Ileostomy status (ICD-10) Social History Smoking status: Never smoker Little interest or pleasure in doing things: not at all Feeling down, depressed, or hopeless: not at all Exam Narrative Exam Narrative: Nurses notes and vital signs reviewed and patient is not hypoxic. General: Well-appearing and in no apparent distress. Skin: Warm, dry, pale No rash. Head: Normocephalic, atraumatic. Neck: Supple, non-tender. Eye: Pupils are equal, round and EOMI. No scleral icterus. Ears, Nose, Mouth, and Throat: TM are clear, no nasal mucosal hypertrophy. Oral mucosa is moist, no posterior oropharynx erythema, uvula is mid-line Cardiovascular: Regular Rate and Rhythm without murmur, gallop or rub. Respiratory: No accessory muscle use or respiratory distress. Lungs are clear to auscultation, no wheezing, rales or rhonchi Chest Wall: no tenderness Back: No midline thoracic or lumbar vertebral tenderness. No CVA tenderness Musculoskeletal: normal ROM, no calf or popliteal tenderness, no lower extremity edema/swelling GI: Abdomen is soft, the patient have ileostomy bag in the right lower quadrant and she does have some tenderness in the left lower as well as suprapubic area, Neurological: A&O x4. No cranial nerve dysfunction observed. Constitutional Vital Signs, click to edit/add: Last Vital Signs Temp 97.8 F 10/24/24 17:17 Pulse 99 H 10/24/24 18:50 Resp 21 H 10/24/24 18:50 BP 91/62 10/24/24 18:49 Pulse Ox 100 10/24/24 18:50 O2 Del Method Room Air 10/24/24 17:17 Course Vital Signs Vital signs: Vital Signs Temperature 97.8 F 10/24/24 17:17 Pulse Rate 118 H 10/24/24 17:17 Respiratory Rate 18 10/24/24 17:17 Blood Pressure 92/64 10/24/24 17:17 Pulse Oximetry 96 10/24/24 17:17 Oxygen Delivery Method Room Air 10/24/24 17:17 Temperature 97.8 F 10/24/24 17:17 Pulse Rate 99 H 10/24/24 18:50 Respiratory Rate 21 H 10/24/24 18:50 Blood Pressure 91/62 10/24/24 18:49 Pulse Oximetry 100 10/24/24 18:50 Oxygen Delivery Method Room Air 10/24/24 17:17 Medical Decision Making [facility] Narrative Medical decision making narrative: The patient CBC shows hemoglobin of 11 and the chemistry showing no significant acute pathology with no elevated troponin and negative test CT abdomen pelvis ordered and pending Lab Data Labs: Lab Results 10/24/24 Range/Units 18:00 WBC 8.7 (4.0-11.0) 10^3/uL RBC 4.05 L (4.20-5.40) 10^6/uL Hgb 11.0 L (12.0-16.0) g/dL Hct 36.0 (36.0-48.0) % MCV 88.9 (81.0-99.0) fL MCH 27.2 (26.7-34.0) pg MCHC 30.6 (29.9-35.2) g/dL RDW 17.5 H (11.0-15.0) % Plt Count 450 (150-450) 10^3/uL MPV 8.8 L (9.5-13.5) fL Neut % (Auto) 80.2 H (43.0-75.0) % Lymph % (Auto) 10.1 L (20.5-60.0) % [place] % (Auto) 7.7 (1.7-12.0) % Eos % (Auto) 0.9 (0.9-7.0) % Baso % (Auto) 0.5 (0.2-2.0) % Neut # (Auto) 7.0 H (1.4-6.5) 10^3/uL Lymph # (Auto) 0.9 L (1.2-3.8) 10^3/uL [place] # (Auto) 0.7 (0.3-0.8) 10^3/uL Eos # (Auto) 0.1 (0.0-0.7) 10^3/uL Baso # (Auto) 0.0 (0.0-0.1) 10^3/uL Abs Immat Gran (auto) 0.05 H (0.00-0.03) 10^3/uL Imm/Tot Granulo (auto) 0.6 H (0.0-0.5) % Sodium 138 (136-145) mmol/L Potassium 3.1 L (3.5-5.1) mmol/L Chloride 101 (98-107) mmol/L Carbon Dioxide 28.7 (21.0-32.0) mmol/L Anion Gap 11.4 BUN 12.0 (7.0-18.0) mg/dL Creatinine 1.11 H (0.55-1.02) mg/dL Est GFR ( Amer) >60 (>=60 mL/min/1.73m^2) Est GFR (Non-Af Amer) 58 L (>=60 mL/min/1.73m^2) BUN/Creatinine Ratio 10.8 Glucose 105 (74-106) mg/dL Lactate 1.9 (0.4-2.0) mmol/L Calcium 7.3 L (8.5-10.1) mg/dL Total Bilirubin 0.3 (0.2-1.0) mg/dL AST 21 (15-37) U/L ALT 14 (14-59) U/L Alkaline Phosphatase 177 H (46-116) U/L Troponin I High Sens <4.0 L (4.0-51.3) pg/mL Total Protein 6.0 L (6.4-8.2) g/dL Albumin 1.1 L (3.4-5.0) g/dL Globulin 4.9 g/dL Albumin/Globulin Ratio 0.2 Serum HCG, Qual Negative (NEGATIVE) Blood Type B Positive Antibody Screen Negative Discharge Plan Discharge Patient Disposition: Still a Patient
--- NOTE | 2024-10-24 19:10 | PC.NURSE ---
Ileostomy in place. States draining normally. Color pale
[2024-10-24 20:44] LABS: Bilirubin Urine NEGATIVE (NEGATIVE); Blood Urine MODERATE (NEGATIVE); Clarity Urine CLEAR (CLEAR); Color Urine LT. YELLOW (YELLOW); Glucose Urine UA NEGATIVE (NEGATIVE); Ketones Urine NEGATIVE (NEGATIVE); Leukocyte Esterase Urine MODERATE (NEGATIVE); Nitrite Urine NEGATIVE (NEGATIVE); Protein Urine NEGATIVE (NEG/TRACE); Specific Gravity Urine <=1.005 (1.005-1.025); Urobilinogen Urine 0.2 EU/dL (0.2-1.0); pH Urine 6.5 (5.0-9.0)
[2024-10-24 20:47] LABS: Urine Microscopic Indicated YES
[2024-10-24] MEDS: METHYLPREDNISOLONE SOD SUCC PF 125 MG/2 ML VIAL IVP (20:48)
[2024-10-24] MEDS: MORPHINE SULFATE 4 MG/ML VIAL IV (20:48)
[2024-10-24 20:51] LABS: Bacteria Urine TRACE #/HPF (NONE SEEN); Crystals Seen? None Seen #/HPF (None Seen); Mucus Urine NONE SEEN (NONE SEEN); RBC Urine 0-2 #/HPF (0-2); Squamous Epithelial Cell Urine FEW #/LPF (NONE/RARE)
[2024-10-24 20:52] LABS: Cast Seen? NONE SEEN #/LPF (NONE SEEN); Urine Culture Indicated YES
[2024-10-24] MEDS: CEPHALEXIN 500 MG CAPSULE PO (21:22)
== END 2024-10-24 21:28 | disposition home or self-care (01) ==
PROVIDERS: Emergency Medicine; Emergency Provider Emergency Medicine
DX: K50.90 Crohn's disease, unspecified, without complications (principal); N39.0 Urinary tract infection, site not specified; Z79.891 Long term (current) use of opiate analgesic; Z93.2 Ileostomy status; R10.84 Generalized abdominal pain
CPT/HCPCS: 36415; 80053; 81001; 83605; 84484; 84703; 85025; 86850; 86900; 86901; 87086; 93005; 96361; 96374; 96375; 99285; J2270; J2919

== ENCOUNTER 2024-12-28 22:48 | Emergency (ER) | payer OTHER, SELFPAY ==
[2024-12-28 22:53] VITALS: BP 119/80; PULSE 145; TEMP 36.4; O2SAT 96; BMI 19.0
--- OUTSIDE RECORDS SUMMARY | 2024-12-28 22:59 | XMS_ITS | CCD ---
Author Organization [facility] Care Team Providers Care Dope Maintenance Worker Name Role Phone HARRY DEVINE Admitting Unavailable HARRY DEVINE Attending Unavailable MISC, DOCTOR Consulting Unavailable HARRY DEVINE Consulting Unavailable Jose Raul Phillips Primary Care Provider [phone] Jose Raul Phillips Primary Care Provider Jose Raul Plata Primary Care Provider PROVIDER, UNKNOWN Admitting Unavailable JOSE RAUL PHILLIPS Primary Care Unavailable CONSULT, IP SURGERY TRIAGE Consulting Unava ilable LEE ANN JAMES Attending Unavailable PROVIDER, UNKNOWN Admitting Unavailable PROVIDER, UNKNOWN Attending Unavailable JOSE RAUL PHILLIPS Primary Care Unavailable Jose Raul PHILLIPS Primary Care Physician Unavailable Primary Care Provider Unavailabl e Jose Raul PHILLIPS Primary Care Physician Kale Rendon MD Primary Care Provi vasile Karlos Rawls MD Unavailable NONE, XXXX Primary Care Physician Unavailab le Kale RENDON Primary Care Physician Mingo Rnedon Unavailable Unavailable [place] Unavailable Kale RENDON Primary Care Physician Kale Rendon MD Primary Care Provi vasile Alfred Graham Attending Unavailable Heriberto Ceravntes Attending Unavailable Harry Devine Attending Unavailable Carolyn Mcmahon Attending Unavailable Heriberto Cervantes Attending Unavailable Zuly Soto Attending Unavailable Harry Devine Attending Unavailable Elliot Macias Attending Unavailable Anoop Lopez Attending Unavailable Anoop Lopez Admitting Unavailable Anoop Lopez Attending Unavailable Anoop Lopez Admitting Unavailable Anoop Lopez Admitting Unavailable Jessica, Anoop Ward Attending Unavailable Elliot Macias Attending Unavailable Hajdari, Astrit H Attending Unavailable Hajdari, Astrit H Attending Unavailable Hajdari, Astrit H Attending Unavailable Hajdari, Astrit H Attending Unavailable Hajdari, Astrit H Attending Unavailable Zaira Campbell RPh Unavailable Unavailabl e Havitoari, Astrit H Attending Unavailable Sybil, Harry Attending Unavailable Elliot Macias Attending Unavailable Sybil, Harry Attending Unavailable Sybil, Harry Attending Unavailable Hajdari, Carolyn H Attending Unavailable Elliot Macias Attending Unavailable Sybil, Harry Attending Unavailable Sybil, Harry Attending Unavailable SarminiJa Attending Unavaila ble Sybil, Harry Attending Unavailable Dago OLVERA Admitting Unavailable Satsuma Jeff Consulting Unavailable Shelli Jaimes Attending Unavailable Jeff Marinelli Consulting Unavailable Jeff Marinelli Consulting Unavailable Jeff Marinelli Consulting Unavailable SatsumaJeff Consulting Unavailable SatsumaJeff Consulting Unavailable SatsumaJeff Consulting Unavailable Jeff Marinelli Consulting Unavailable Jeff Marinelli Consulting Unavailable MD Jeff Marinelli Consulting Unavailable Tyson Kinney Consulting UnavailTyson Arrieta Consulting UnavailMD Tyson Arrieta Consulting Unavail able Aldo Estrada Consulting Unavailable Aldo Estrada Consulting Unavailable Aldo Estrada Consulting Unavailable Ted Petersen DO Attending Provider [phone] Ted Petersen Attending Unavailable Ted Petersen Admitting Unavailable PecBALTAZAR brown Jr. Consulting Unavail able BALTAZAR Estrada Jr. Consulting Unavail able Unavailable Primary Care Provider UnavailDago Bower Admitting Unavailable Aldo Estrada Consulting Unavailable Shelli Jaimes Attending Unavailable PecBALTAZAR brown Jr. Consulting Unavail able BALTAZAR Estrada Jr. Consulting Unavail Jeff Griffith Consulting Unavailable MD Jeff Marinelli Consulting Unavailable Jeff Marinelli Consulting Unavailable SatsumaJeff Consulting Unavailable SatsumaJeff Consulting Unavailable SatsumaJeff Consulting Unavailable Satsuma, Jeff Consulting Unavailable Satsuma, Jeff Consulting Unavailable Satsuma, Jeff Consulting Unavailable Quinn Rodriguez Attending Unavailable Riley GILES, Karlos Unavailable Dago OLVERA Attending Unavailable Hajdari, Astrradhika H Attending Unavailable Dokken, DO Simon A Attending Unavailable Hajdari, Astrit H Attending Unavailable Hakriss, Astrradhika H Attending Unavailable Dokken, DO Alfred Wallace Attending Unavailable MAGDALENE BOYLE Attending Unavailable Garcia, Heriberto Attending Unavailable Garcia, Heriberto Attending Unavailable JEANINE ISAAC Admitting Unavailable ISAIAS CERVANTES Referring Unavailable NAVEEN, KOMAL Drake Attending Unavailable KOMAL HERNANDEZ Attending Unavailable [facility] Unava ilable RACH, JORJE Attending Unavailable DAWN CABELLO Referring Unavailab le [facility] Unava ilable PATRICIA HUBER Attending Unavailable Shaq Thakkar Attending Unavailable Shaq Thakkar Admitting Unavailable [facility] Unava ilable Elliot Macias Attending Unavailable Unavailable Primary Care Provider UnavailHarry Acuna Attending Unavailable Sybil, Harry Attending Unavailable Ja Pérez Attending Unavaila ble SHAQ THAKKAR Attending Unavailab le SHAQ THAKKAR Referring Unavailab le [facility] Unava ilable UMBEL, LEE ANN Referring Unavailable [facility] Unava ilable UMBEL, LEE ANN Referring Unavailable [facility] Unava ilable MINELLEE ANN Attending Unavailable [facility] Unava ilable SHAQ THAKKAR Referring Unavailab SHAQ Woods Referring Unavailab le SHAQ THAKKAR Attending Unavailab le [facility] Unava ilable [facility] Unava ilable ALEX FERREIRA Attending Unavailable Allergies Allergy Classification Reported Allergen(s) Allergy Type Date of Onset Reaction(s) Facility (20 sources) HYDROmorphone; Translations: [hydromorphone] Drug Allergy 05-24-2023 [facility] (1 source) HYDROmorphone Drug Allergy 05-26-[address] [facility] Repository Medications Current Medications Medication Drug Class(es) Dates Sig (Normalized) Sig (Original) acetaminophen 500 mg oral tablet (7 sources) Start: 12-18-2024 take 2 tablets by mouth every six hours in the evening acetaminophen (TYLENOL) 500 mg tablet Take 2 tablets by mouth every 6 hours. 50 tablet 12/18/2024 5:51 PM EDT 12/18/2024 Active Start: 04-01-2024 End: 04-01-2024 acetaminophen 650 mg tab(s) (TYLENOL) Start: 03-12-2024 End: 03-12-2024 acetaminophen 650 mg tab(s) (TYLENOL) Start: 05-02-2023 End: 07-04-2023 take 2 tablets by mouth every six hours as needed acetaminophen (TYLENOL) 325 mg tablet Take 2 tablets by mouth every 6 hours as needed for pain. 0 05/02/2023 07/04/2023 Discontinued Comment on above: Take 2 tablets by mo ut every 6 hours as needed for pain. acetaminophen 325 mg / HYDROcodone bitartrate 5 mg oral tablet (20 sources) Opioid Agonist Start: 08-27-2021 [place] 325 mg-5 mg oral tablet 1 tab(s), [...] pain 10 tablet 0 08/10/2020 08/13/2020 Active Acetaminophen / oxyCODONE (20 sources) Opioid Agonist Start: 12-25-2024 This order is for a take home starter pack of medication. Please document Not Given with a reason of other on the MAR along with a comment of sent home with patient. Maximum dose of acetaminophen is 4000 mg from all sources in 24 hours. Start: 08-23-2023 End: 09-05-2023 take 1 tablet by mouth every four hours as needed for pain oxyCODONE-acetaminophen (PERCOCET) 5-325 mg tablet Indications: Abdominal pain affecting Take 1 tablet by mouth every 4 hours as needed for pain. 5 tablet 0 08/23/2023 09/05/2023 Discontinued Start: 05-26-2023 End: 11-16-2024 acetaminophen-oxycodone 325 mg-5 mg Tab 1 tab(s), Oral, q6hr for pain for 2 day(s), 8 tab(s), Refill(s) 0, [facility]/pharmacy #[id number], 167, cm, 11/14/24 17:36:00 EST, Height/Length Dosing, 53.1, kg, 11/14/24 17:36:00 EST, Weight Dosing Start Date: 11/14/24 Stop Date: 11/16/24 Status: Ordered Start: 12-23-2022 End: 05-26-2023 take 1 tablet by mouth twice daily Oxycodone-Acetaminophen 5-325 mg tablet Discontinued 5 - 325 TAB PO 2 times daily December 22, 2022 11:00pm May 26, 2023 10:34pm Start: 10-27-2022 End: 01-29-2023 Percocet 5 mg-325 mg oral ta blet 1 tab(s), Oral, q6hr, 8 tab(s), Refill(s) 0, [facility]/pharmacy #[id number], 168, cm, 01/29/23 11:35:00 EDT, Height/Length [...] by juan jose th daily at bedtime. Amoxicillin / Clavulanate (6 sources) Penicillin-class Antibacterial Start: 12-24-19 take 1 tablet by mouth every twelve hours amoxicillin-clavulan ate (Augmentin 875 mg oral tablet) amoxicillin-clavulan ate (Augmentin 875 mg oral tablet), 1 tab(s), q12hr Start Date: 12/23/24 Status: Ordered Repeat number: 1 Start: 12-13-2024 End: 12-25-2024 take 1 tablet by mouth every twelve hours in the evening amoxicillin-clavulanate potassium (AUGMENTIN) 875-125 mg per tablet Take 1 tablet by mouth every 12 hours for 7 days. 14 tablet 12/18/2024 5:51 PM EDT 12/18/2024 12/25/2024 Active busPIRone hydrochloride 10 mg oral tablet (16 sources) Start: 05-18-2024 take 1 tablet by mouth three times daily busPIRone (BUSPAR) 10 mg tablet Take 10 mg by mouth three times a day. 12/03/2024 Active Start: 05-18-2024 busPIRone (BUS PAR) 10 mg tablet 05/18/2024 Active cephalexin 500 mg oral capsule (2 sources) Cephalosporin Antibacterial Start: 06-03-2023 End: 06-09-2023 take 1 capsule by mouth twice daily [...] day(s), # 28 cap(s), Refills(s) 0, [id number] 168, cm, 01/13/23 14:44:00 EDT, Height/Length [...] needed. dicyclomine hydrochloride 10 mg oral capsule (20 sources) Anticholinergic Start: End: take 1 capsule by mouth four times daily Bentyl 10 mg Cap 10 mg = 1 cap(s), Oral, QID, X 7 day(s), # 28 cap(s), Refills(s) 0, [id number] 167, cm, 11/14/24 17:36:00 EST, Height/Length Dosing, 53.1, kg, 11/14/24 17:36:00 EST, Weight Dosing Start Date: 11/14/24 Stop Date: 11/21/24 Status: Ordered Start: 11-11-2024 dicyclomine HC l (BENTYL ORAL) 11/11/2024 Active Start: 07-13-2024 End: 07-20-2024 take 1 capsule by mouth four times daily Bentyl 10 mg Cap 10 mg = 1 cap(s), Oral, QID, X 7 day(s), # 28 cap(s), Refills(s) 0, [id number] 167, cm, 07/13/24 18:32:00 EDT, Height/Length Dosing, 63.6, kg, 07/13/24 18:32:00 EDT, Weight Dosing Start Date: 07/13/24 Stop Date: 07/20/24 Status: Ordered Start: 04-08-2024 End: 04-15-2024 take 1 capsule by mouth four times daily Bentyl 10 mg Cap 10 mg = 1 cap(s), Oral, QID, X 7 day(s), # 28 cap(s), Refills(s) 0, Pharmacy: [facility]/pharmacy #[id number], 167, cm, 04/08/24 11:39:00 EDT, Height/Length Dosing, 77, kg, 04/08/24 11:39:00 EDT, Weight Dosing Start Date: 04/08/24 Stop Date: 04/15/24 Status: Ordered Start: 03-04-2024 take 2 capsules by out four times daily Bentyl 10 mg Cap 20 mg = 2 cap(s), Oral, QID, # 20 cap(s), Refills(s) 0, Pharmacy: [facility]/pharmacy #[id number], 167, cm, 03/04/24 9:30:00 EDT, Height/Length Dosing, 82.6, kg, 03/04/24 9:30:00 EDT, Weight Dosing Start Date: 03/04/24 Status: Ordered Quantity: 20.0 Unit: cap(s) Repeat number: 1 Start: 01-09-2023 End: 01-19-2023 take 1 capsule by mouth four times daily Bentyl 10 mg Cap 10 mg = 1 cap(s), Oral, QID, X 10 day(s), # 40 cap(s), Refills(s) 0, Pharmacy: [facility]/pharmacy #[id number], 168, cm, 01/09/23 12:47:00 EDT, Height/Length Dosing, 93.2, kg, 01/09/23 12:47:00 EDT, Weight Dosing Start Date: 01/09/23 Stop Date: 01/19/23 Status: Ordered Start: 12-24-2022 take 1 tablet by juan jose every six hours as needed for pain dicyclomine (BENTYL) 20 MG tablet Take 1 tablet by mouth every 6 hours as needed (abd pain) 10 tablet 12/24/2022 Active Start: 05-31-2022 End: 06-07-2022 take 1 capsule by mouth four times daily Bentyl 10 mg Cap 10 mg = 1 cap(s), Oral, QID, X 7 day(s), # 14 cap(s), Refills(s) 0 Start Date: 05/31/22 Stop Date: 06/07/22 Status: Ordered Comment on above: Take 10 mg by mouth before meals and at bedtime. ferrous sulfate 325 mg oral tablet (2 sources) Start: 024 take 1 tablet by mouth every other day ferrous sulfate 325 mg (65 mg iron) tablet Take 1 tablet by mouth every other day. 15 tablet 2 10/27/2023 Active Comment on above: Take 1 tablet by juan jose th every other day. hydrocortisone 25 mg/ml topical cream (6 sources) Corticosteroid Start: 023 End: 023 hydrocortisone (ANUSOL-HC) 2.5 % rectal cream Indications: [...] oral tablet (20 sources) Antihistamine Start: 01-22-20 23 End: 02-21-20 23 take 1 tablet by mouth every six [...] anxiety, # 20 tab(s), Refills(s) 0, Pharmacy: [address], 12/18/21 3:53:00 EDT, Height/Length Dosing, 102.3, kg, 12/18/21 3:53:00 EDT, Weight Dosing Start Date: 12/18/21 Status: Ordered Start: 12-18-2021 take 1-2 tablets by mouth four times daily as needed for anxiety Vistaril 25 mg Tab 1-2 tab(s), Oral, QID, PRN as needed for anxiety, # 20 tab(s), Refills(s) 0, Pharmacy: [facility], 168, cm, 12/18/21 3:53:00 EDT, Height/Length Dosing, 102.3, kg, 12/18/21 3:53:00 EDT, Weight Dosing Start Date: 12/18/21 Status: Ordered Comment on above: Take 1 tablet by juan jose th four times daily as needed. Venofer (11 sources) Parenteral Iron Replacement Start: 10-01-19 Venofer Refills(s) 0 Start Date: 10/01/23 Status: Ordered levETIRAcetam 500 mg oral tablet (16 sources) Start: 12-16-19 take 1 tablet by mouth twice daily levETIRAcetam (KEPPRA) 500 mg tablet Take 500 mg by mouth two times a day. 12/15/2024 Active Start: 11-22-2024 KEPPRA 250 mg tablet Take 500 mg by mouth. 11/22/2024 Active LORazepam 1 mg oral tablet (3 sources) Benzodiazepine Start: 12-15-2024 take 1 tablet by mouth three times daily as needed for anxiety Ativan 1 mg Tab 1 mg = 1 tab(s), Oral, TID, PRN for anxiety, # 6 tab(s), Refills(s) 0, Pharmacy: [facility]/pharmacy #[id number], 167, cm, 12/15/24 14:57:00 EDT, Height/Length Dosing, 50.5, kg, 12/15/24 14:57:00 EDT, Weight Dosing Start Date: 12/15/24 Status: Ordered Quantity: 6.0 Unit: tab(s) Repeat number: 1 Start: 11-14-2024 End: 11-17-2024 take 1 tablet by mouth three times daily as needed for anxiety Ativan 0.5 mg Tab 0.5 mg = 1 tab(s), Oral, TID, PRN for anxiety, X 3 day(s), # 9 tab(s), Refills(s) 0, [id number] 167, cm, 11/14/24 17:36:00 EST, Height/Length Dosing, 53.1, kg, 11/14/24 17:36:00 EST, Weight Dosing Start Date: 11/14/24 Stop Date: 11/17/24 Status: Ordered lurasidone hydrochloride 20 mg oral tablet (15 sources) Atypical Antipsychotic Start: 02-21-2021 take 1 tablet by mouth once daily Latuda 20 mg oral tablet 20 mg = 1 tab(s), Oral, Daily, # 30 tab(s), Refills(s) 0, Pharmacy: [facility], 166, cm, 02/21/21 8:47:00 EDT, Height/Length Dosing, 97.9, kg, 02/21/21 8:47:00 EDT, Weight Dosing Start Date: 02/21/21 Status: Ordered Magnesium (3 sources) take 1 tablet by mouth once daily Magnesium 200 mg tab Take 200 mg by mouth once daily. Active magnesium glycinate 100 mg oral tablet (5 sources) Start: 12-09-2024 magnesium glycinate 100 mg oral capsule 200 mg = 2 cap(s), Oral, Daily, # 60 cap(s), Refills(s) 0, [id number] 167, cm, 12/09/24 17:34:00 EDT, Height/Length Dosing, 52.3, kg, 12/09/24 17:34:00 EDT, Weight Dosing Start Date: 12/09/24 Status: Ordered Quantity: 60.0 Unit: cap(s) Repeat number: 1 Metoclopramide (20 sources) Dopamine-2 Receptor Antagonist Start: 10-01-2023 Reglan Refills(s) 0 Start Date: 10/01/23 Status: Ordered Start: 07-04-2023 take 1 tablet by juan jose th three times daily metoclopramide HCl (REGLAN) 10 mg tablet Take 1 tablet by mouth three times a day. 30 tablet 0 07/04/2023 Suspended Start: 08-05-2023 take 1 tablet by juan jose th every six hours as needed for nausea metoclopramide 10 mg oral tablet, disintegrating 10 mg = 1 tab(s), Oral, q6hr, PRN Nausea/Vomiting, # 30 tab(s), Refills(s) 0, Pharmacy: [facility]/pharmacy #[id number], 167.6, cm, 04/26/23 22:31:00 EDT, Height/Length Dosing, 87, kg, 04/26/23 22:31:00 EDT, Weight Dosing Start Date: 04/27/23 Status: Ordered Comment on above: Take 1 tablet by juan jose th three times a day. metroNIDAZOLE 500 mg oral tablet (6 sources) Nitroimidazole Antimicrobial Start: take 1 tablet by mouth three times daily metroNIDAZOLE (FLAGYL) 500 mg tablet Indications: Anal fistula Take 1 tablet by mouth three times a day. Take 1 tablet at 6pm, 7pm, and 11pm, the evening prior to surgery. 3 tablet 12/04/2024 Active naloxone hydrochloride 40 mg/ml nasal spray (5 sources) Opioid Antagonist Start: naloxone 4 mg/0.1 mL nasal spray 4 mg, Nasal, As Directed, for suspected overdose symptoms, # 1 kit(s), Refills(s) 0, [id number] 167, cm, 11/22/24 3:24:00 EST, Height/Length Dosing, 57, kg, 11/22/24 3:24:00 EST, Weight Dosing Start Date: 11/25/24 Status: Ordered Quantity: 1.0 Unit: kit(s) Repeat number: 1 neomycin sulfate 500 mg oral tablet (6 sources) Aminoglycoside Antibacterial Start: neomycin 500 mg tablet Indications: Anal fistula Take 2 tablets by mouth as directed. Take 2 tablet at 6pm, 7pm, and 11pm the evening prior to surgery. 6 tablet 12/04/2024 Active nitrofurantoin, macrocrystals 25 mg / nitrofurantoin, monohydrate 75 mg oral capsule (1 source) Nitrofuran Antibacterial Start: take 1 capsule by mouth every twelve hours at mealtime Nitrofurantoin Monohyd/M-Cryst (Macrobid) 100 mg capsule Active 100 MG PO Q12H 06 27May 25, 2023 11:00pm administer with a meal/food; swallow whole; do not open, crush, dissolve , or chew ondansetron 4 mg disintegrating oral tablet (20 sources) Serotonin-3 Receptor Antagonist Start: 025 take 1 tablet by mouth every six hours ondansetron 4 mg Dis Tab 4 mg = 1 tab(s), Oral, q6hr, # 12 tab(s), Refills(s) 0, Pharmacy: [facility] #[id number], 167, cm, 10/02/24 14:00:00 EST, Height/Length Dosing, 53.1, kg, 10/02/24 14:00:00 EST, Weight Dosing Start Date: 10/02/24 Status: Ordered Quantity: 12.0 Unit: tab(s) Repeat number: 1 Start: 12-24-2022 End: 12-24-2022 ondansetron (ZOFRAN) injecti [...] needed for Nausea or Vomiting 10 tablet 08/10/2020 Active Start: 08-10-2020 End: 08-10-2020 ondansetron (ZOFRAN) injecti on 4 mg Comment on above: TAKE 1 TABLET BY JUAN JOSE TH EVERY 8 HOURS NEEDED FOR NAUSEA AND VOMITING oxyCODONE hydrochloride 5 mg oral tablet (18 sources) Opioid Agonist Start: 12-26-2024 End: 01-02-2025 oxyCODONE IR (ROXICODONE) 5 mg immediate release tablet Indications: Crohn's disease of perianal region with fistula (HCC) Take 1 tablet by mouth every 8 hours as needed for pain for up to 7 days. Patient should start on December 26, 2024. 21 tablet 12/26/2024 01/02/2025 Active Start: 12-23-2024 take 1 capsule by mo uth every six hours as needed for pain oxyCODONE 5 mg Cap 5 mg = 1 cap(s), Oral, q6hr, PRN for pain, # 10 cap(s), Refills(s) 0, Pharmacy: [facility]/pharmacy #[id number], 167, cm, 12/23/24 13:00:00 EDT, Height/Length Dosing, 53.2, kg, 12/23/24 13:00:00 EDT, Weight Dosing Start Date: 12/23/24 Status: Ordered Quantity: 10.0 Unit: cap(s) Repeat number: 1 Start: 12-18-2024 End: 12-25-2024 take 1 tablet by mouth every six hours as needed oxyCODONE IR (ROXICODONE) 5 mg immediate release tablet Indications: Post-op pain Take 1 tablet by mouth every 6 hours as needed for up to 7 days. 15 tablet 12/18/2024 5:51 PM EDT 12/18/2024 12/25/2024 Active Start: 12-09-2024 End: 12-12-2024 take 1 tablet by mouth every six hours as needed for pain oxyCODONE 5 mg Tab 5 mg = 1 tab(s), Oral, q6hr, PRN as needed for pain, # 10 tab(s), Refills(s) 0, Pharmacy: [facility]/pharmacy #[id number], 167.6, cm, 12/12/24 19:58:00 EDT, Height/Length Dosing, 50.4, kg, 12/12/24 19:58:00 EDT, Weight Dosing Start Date: 12/13/24 Status: Ordered Quantity: 10.0 Unit: tab(s) Repeat number: 1 Start: 12-04-2024 End: 12-18-2024 take 1 tablet by mouth every eight hours as needed for pain oxyCODONE IR (ROXICODONE) 5 mg immediate release tablet Indications: Crohn disease of colon and rectum (HCC) , Perianal Crohn's disease, with fistula (HCC) , Generalized abdominal pain , Colonic stricture (HCC) Take 1 tablet by mouth every 8 hours as needed (Severe pain) for up to 15 doses. 15 tablet 12/04/2024 12/18/2024 Active Start: 11-25-2024 take 1 capsule by mo [facility] every six hours as needed for pain oxyCODONE 5 mg Cap 5 mg = 1 cap(s), Oral, q6hr, PRN for pain, # 16 cap(s), Refills(s) 0, Pharmacy: [facility] #[id number], 167, cm, 11/22/24 3:24:00 EST, Height/Length Dosing, 57, kg, 11/22/24 3:24:00 EST, Weight Dosing Start Date: 11/25/24 Status: Ordered Quantity: 16.0 Unit: cap(s) Repeat number: 1 Start: 12-21-2023 End: 12-24-2023 take 1 tablet by mouth every six hours as needed for pain oxyCODONE 5 mg Tab 5 mg = 1 tab(s), Oral, q6hr, PRN for pain, X 3 day(s), # 12 tab(s), Refills(s) 0, [id number] 167, cm, 12/21/23 14:53:00 EDT, Height/Length [...] Comment on above: Take 1 tablet by [facility] every 6 hours as needed for pain for up to 1 day. predniSONE 50 mg oral tablet (20 sources) Start: 11-14-2024 End: 11-21-2024 take 1 tablet by mouth once daily predniSONE 50 mg Tab 50 mg = 1 tab(s), Oral, Daily, X 7 day(s), # 7 tab(s), Refills(s) 0, Pharmacy: [facility] #[id number], 167, cm, 11/14/24 17:36:00 EST, Height/Length Dosing, 53.1, kg, 11/14/24 17:36:00 EST, Weight Dosing Start Date: 11/14/24 Stop Date: 11/21/24 Status: Ordered Start: 07-13-2024 End: 07-18-2024 take 1 tablet by mouth once daily predniSONE 50 mg Tab 50 mg = 1 tab(s), Oral, Daily, X 5 day(s), # 5 tab(s), Refills(s) 0, Pharmacy: [facility]/pharmacy #[id number], 167, cm, 07/13/24 18:32:00 EDT, [...] prednisone., # 72 tab(s), Refills(s) 0, Pharmacy: [facility] #[id number], 167, cm, 04/08/24 11:39:00 EDT, [...] daily, # 72 tab(s), Refills(s) 0, Pharmacy: [facility] #[id number], 167, cm, 03/08/24 9:51:00 EDT, [...] days., # 75 tab(s), Refills(s) 0, Pharmacy: [facility]/pharm[facility] #[id number], 167, cm, 12/21/23 14:53:00 EDT, Height/Length Dosing, 85, kg, 12/21/23 14:53:00 EDT, Weight Dosing Start Date: 12/21/23 Status: Ordered Start: 12-07-2023 predniSONE 10 mg Tab See Instructions, 6 tabs for 2 days,5 tabs for 2 days,4 tabs for 2 days,3 tabs for 2 days,2 tabs for 2 days,1 tab for 2 days, # 42 tab(s), Refills(s) 0, Pharmacy: [facility]/pharm[facility] #[id number], 167, cm, 12/07/23 18:59:00 EDT, Height/Length Dosing, 84.9, kg, 12/07/23 18:59:00 EDT, Weight Dosing Start Date: 12/07/23 Status: Ordered Start: 05-26-2023 take 2 tablets by mo uth once daily in the morning Prednisone 20 mg tablet Active 40 MG PO Every morning 06 27May 25, 2023 11:00pm administer with food or milk Start: 01-09-2023 End: 01-16-2023 take 1 tablet by mouth once daily predniSONE 50 mg Tab 50 mg = 1 tab(s), Oral, Daily, X 7 day(s), # 7 tab(s), Refills(s) 0, Pharmacy: [facility]/pharmacy #[id number], 168, cm, 01/09/23 12:47:00 EDT, [...] day(s), # 10 tab(s), Refills(s) 0, Pharmacy: [facility] #[id number], 167, cm, 09/29/22 19:14:00 EST, Height/Length Dosing, [...] on above: Take 4 tablets by mo ut once daily for 7 days, THEN 3.5 tablets once daily for 7 days, THEN 3 tablets once daily for 7 days, THEN 2.5 tablets once daily for 7 days, THEN 2 tablets once daily for 7 days, THEN 1.5 tablets once daily for 7 days, THEN 1 tablet once daily for 7 days. Take 4 tablets by mo uth once daily for 7 days, THEN 3 tablets once daily for 7 days. Take 4 tablets by mo uth once daily for 7 days, THEN 3.5 [...] 7 days. Take 4 tablets by mo ut once daily for 7 days, THEN 3 tablets once daily for 7 days, THEN 2 tablets once daily for 7 days, THEN 1 tablet once daily for 7 days. VIT [id number] ORAL (14 sources) VIT [id number] ORAL Take by mouth. 0 Suspended VIT 10- [id number] ORAL Take by mouth. 0 Active Comment on above: Take by mouth. promethazine hydrochloride 25 mg oral tablet (20 sources) Phenothiazine Start: 10-02-2024 promethazine (PHENERGAN) 25 mg tablet Take 25 mg by mouth. 10/02/2024 Active Start: 01-13-2023 take 1 tablet by juan jose th every six hours as needed for nausea promethazine 25 mg Tab 25 mg = 1 tab(s), Oral, q6hr, PRN as needed for nausea/vomiting, # 20 tab(s), Refills(s) 0, Pharmacy: [facility]/pharmacy #[id number], 168, cm, 01/13/23 14:44:00 EDT, Height/Length Dosing, 93.2, kg, 01/13/23 14:44:00 EDT, Weight Dosing Start Date: 01/13/23 Status: Ordered Quantity: 20.0 Unit: tab(s) Repeat number: 1 Start: 05-31-2022 take 25 mg rectal ro lore every six hours as needed for nausea [...] sources) Serotonin-1b and Serotonin-1d Receptor Agonist Start: 10-15-19 take 1 tablet by mouth every twelve [...] hours. 0.5 ml ustekinumab 90 mg/ml injection (5 sources) Interleukin-12 Antagonist, Interleukin-23 Antagonist ustekinumab (STELARA ) 45 MG/0.5ML SOLN injection Inject 45 mg into the skin Every 2 months Active 0.68 ML vedolizumab 159 MG/ML Auto-Injector [Entyvio] (20 sources) Integrin Receptor Antagonist Start: 11-09-19 Entyvio Pen 108 mg/0.68 mL subcutaneous solution 1 mL, 0 Refill(s), Refills(s) 0 Start Date: 11/09/24 Status: Ordered Start: 04-01-2024 inject 108 mg by sub [...] pen) subcutaneously every other week. 2 Each 06/18/2024 10:25 AM EDT 02/25/2024 Active Start: 02-25-2024 inject 108 mg by [...] ODT 4 mg Tab-Dis (20 sources) Start: 12-09-2024 take 1 tablet by mouth every six hours Zofran ODT 4 mg Tab-Dis 4 mg = 1 tab(s), Oral, q6hr, # 12 tab(s), Refills(s) 0, Pharmacy: [facility]/pharmacy #[id number], 167, cm, 12/09/24 17:34:00 EDT, Height/Length Dosing, 52.3, kg, 12/09/24 17:34:00 EDT, Weight Dosing Start Date: 12/09/24 Status: Ordered Quantity: 12.0 Unit: tab(s) Repeat number: 1 Start: 11-14-2024 take 1 tablet by juan jose th every eight hours as needed for nausea Zofran ODT 4 mg Tab-Dis 4 mg = 1 tab(s), Oral, q8hr, PRN Nausea/Vomiting, # 12 tab(s), Refills(s) 0, Pharmacy: [facility]/pharmacy #[id number], 167, cm, 11/14/24 17:36:00 EST, Height/Length Dosing, 53.1, kg, 11/14/24 17:36:00 EST, Weight Dosing Start Date: 11/14/24 Status: Ordered Start: 04-08-2024 take 1 tablet by juan jose th every eight hours as needed for nausea Zofran ODT 4 mg Tab-Dis 4 mg = 1 tab(s), Oral, q8hr, PRN Nausea/Vomiting, # 12 tab(s), Refills(s) 0, [id number] 167, cm, 04/08/24 11:39:00 EDT, Height/Length Dosing, 77, kg, 04/08/24 11:39:00 EDT, Weight Dosing Start Date: 04/08/24 Status: Ordered Start: 03-04-2024 take 1 tablet by juan jose th every six hours as needed for nausea Zofran ODT 4 mg Tab-Dis 4 mg = 1 tab(s), Oral, q6hr, PRN Nausea/Vomiting, # 12 tab(s), Refills(s) 0, Pharmacy: [facility]/pharmacy #[id number], 167, cm, 03/04/24 9:30:00 EDT, Height/Length Dosing, 82.6, kg, 03/04/24 9:30:00 EDT, Weight Dosing Start Date: 03/04/24 Status: Ordered Start: 12-21-2023 take 1 tablet by juan jose th every eight hours Zofran ODT 4 mg Tab-Dis 4 mg = 1 tab(s), Oral, q8hr, # 12 tab(s), Refills(s) 0, [id number] 167, cm, 12/21/23 14:53:00 EDT, Height/Length Dosing, 85, kg, 12/21/23 14:53:00 EDT, Weight Dosing Start Date: 12/21/23 Status: Ordered Start: 01-09-2023 take 1 tablet by juan jose th every eight hours as needed for nausea Zofran ODT 4 mg Tab-Dis 4 mg = 1 tab(s), Oral, q8hr, PRN Nausea/Vomiting, # 20 tab(s), Refills(s) 0, Pharmacy: [facility]/pharmacy #[id number], 168, cm, 01/09/23 12:47:00 EDT, Height/Length Dosing, 93.2, kg, 01/09/23 12:47:00 EDT, Weight Dosing Start Date: 01/09/23 Status: Ordered Start: 10-27-2022 take 1 tablet by juan jose every eight hours Zofran ODT 4 mg Tab-Dis 4 mg = 1 tab(s), Oral, q8hr, # 10 tab(s), Refills(s) 0, Pharmacy: [facility]/pharmacy #[id number], 168, cm, 10/27/22 0:31:00 EST, Height/Length Dosing, 93.2, kg, 10/27/22 0:31:00 EST, Weight Dosing Start Date: 10/27/22 Status: Ordered Completed/Discontinued Medications Medication Drug Class(es) Dates Sig (Normalized) Sig (Original) azaTHIOprine 100 mg oral tablet (9 sources) Purine Antimetabolite Start: 02-04-2023 End: 04-04-2023 take 2 tablets by mouth once daily azaTHIOprine (IMURAN) 100 mg tablet Indications: 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 60 tablet 0 03/05/2023 Active take 1 tablet by mouth once cristiana y Imuran 50 mg oral tablet ; 1 tab(s) orally once a day Quantity: 0 Refills: 0 Ordered: 02-Jun-2023 CashiskLiliana wallaceJagruti Generic Substitution Allowed Comment on above: Take 2 tablets by mo [facility] once daily. 2 ml fentaNYL 0.05 mg/ml injection (1 source) Opioid Agonist Start: 03-01-20 End: 03-01-20 fentaNYL (SUBLIMAZE) injection 100 mcg ibuprofen 600 mg oral tablet (1 source) Nonsteroidal Anti-inflammatory Drug Start: 12-24-19 End: 05-26-20 take 4 tablets by mouth every twenty-four hours for pain Ibuprofen 600 mg tablet Discontinued 600 MG PO Every 6 hours as needed for Pain December 22, 2022 11:00pm May 26, 2023 10:34pm do not exceed 4 doses in a 24 hour period iopamidol (ISOVUE-370) 76 % injection 75 mL (1 source) Start: 12-25-19 End: 12-25-19 iopamidol (ISOVUE-370) 76 % injection 75 mL 1 ml ketorolac tromethamine 30 mg/ml cartridge (1 source) Nonsteroidal Anti-inflammatory Drug, Cyclooxygenase Inhibitor Start: 08-10-20 End: 08-10-20 ketorolac (TORADOL) injection 30 mg Start: 08-10-2020 End: 08-10-2020 ketorolac (TORADOL) injectio n 30 mg methylPREDNISolone 125 mg injection (2 sources) Corticosteroid Start: 08-10-2020 End: 08-10-2020 methylPREDNISolone sodium (SOLU-MEDROL) injection 125 mg Start: 03-01-2020 End: 03-01-2020 methylPREDNISolone sodium (S KRISSY-MEDROL) injection 40 mg 1 ml morphine sulfate 4 mg/ml injection (2 sources) Opioid Agonist Start: 12-25-2024 End: 12-25-2024 take 1 dose by mouth every hour 4 mg, IntraVENous, ONCE, 1 dose, On Sat12/25/24 at 2029, If oral and IV narcotics ordered, use oral first and only use IV if oral is ineffective or cannot take oral. Do Not give oral and IV within 1 hour of each other unless specifically ordered. Start: 12-24-2022 End: 12-24-2022 morphine sulfate (PF) inject ion 4 mg 125 ml sodium chloride 9 mg/ ml prefilled syringe (5 sources) Start: 04-01-2024 End: 04-01-2024 sodium chloride 0.9 % (flush ) 10-20 mL (BD POSIFLUSH) Start: 03-12-2024 End: [...] Problem Date Documented Da te Episodic/Chronic Abdominal hernia (1 source) Parastomal hernia; Translations: [Parastomal hernia without obstruction or gangrene] Onset: 5 Episodic Allergic reactions (20 sources) Eczema 10-16-2015 Episodic Anxiety disorders (20 sources) Anxiety disorder; Translations: [Anxiety disorder, unspecified] Onset: 2 Chronic Anxiety disorders (20 sources) Anxiety disorder due to a general medical condition 02-21-2021 Episodic Bacterial infection; unspecified site (1 source) Bacteremia; Translations: [Bacteremia] Onset: 5 Episodic Cardiac dysrhythmias (20 sources) Sinus tachycardia 12-20-2019 Episodic Chronic ulcer of skin (3 sources) Pressure ulcer of sacral region; Translations: [Pressure ulcer of sacral region, stage 3] Onset: 5 Chronic Complication of device; implant or graft (20 sources) Colostomy hemorrhage; Translations: [Colostomy hemorrhage] Onset: 3 Chronic Deficiency and other anemia (20 sources) Anemia; Translations: [Anemia, unspecified] Onset: 5 10-16-2015 Episodic Deficiency and other anemia (1 source) Anemia, unspecified; Translations: [Anemia, unspecified type] Onset: 5 Episodic Diseases of white blood cells (1 source) Leukocytosis; Translations: [Elevated white blood cell count, unspecified] Onset: 5 Chronic Epilepsy; convulsions (5 sources) Seizure; Translations: [Unspecified convulsions] Onset: 5 Episodic Headache; including migraine (1 source) Refractory migraine; Translations: [Migraine, unspecified, intractable, without status migrainosus] 07-04-2023 Chronic Immunizations and screening for infectious disease (1 source) Needs influenza immunization; Translations: [Encounter for immunization] 07-04-2023 Episodic Intestinal obstruction without hernia (1 source) Stricture of colon; Translations: [Other intestinal obstruction unspecified as to partial versus complete obstruction] 12-04-2024 Episodic Mood disorders (20 sources) Bipolar disorder, most recent episode depression; Translations: [Bipolar disorder] Onset: 4 02-21-2021 Chronic Mycoses (1 source) Dermal mycosis; Translations: [Superficial mycosis, unspecified] Episodic Nausea and vomiting (6 sources) Nausea and vomiting; Translations: [Nausea with vomiting, unspecified] Onset: 2 Episodic Nausea and vomiting (1 source) Vomiting, unspecified; Translations: [VOMITING UNSPECIFIED] Onset: 9 Noninfectious gastroenteritis (3 sources) Indeterminate colitis; 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] Onset: 6 03-14-2016 Chronic Noninfectious gastroenteritis (4 sources) Indeterminate colitis; Translations: [Gastroenteritis] Onset: 6 [...] 09-13-2023 Chronic Other complications of (1 source) High [...] Onset: 3 09-13-2023 Chronic Other gastrointestinal disorders (20 sources) Ileostomy present; Translations: [Ileostomy status] Onset: 4 01-18-2024 Chronic Other gastrointestinal disorders (1 source) History of Crohns disease; Translations: [Personal history of other diseases of the digestive system] Episodic Other gastrointestinal disorders (1 source) Constipation, unspecified; Translations: [Constipation, unspecified] Onset: 2 Episodic Other gastrointestinal disorders (4 sources) Diarrhea; Translations: [Diarrhea, unspecified] Onset: 4 Episodic Other gastrointestinal disorders (1 source) H/O: gastrointestinal disease; Translations: [Personal history of other diseases of the digestive system] Onset: 3 Episodic Other injuries and conditions due to external causes (1 source) Foreign body in digestive tract; Translations: [Foreign body in small intestine, initial encounter] Onset: 2 Episodic Other nervous system disorders (2 sources) Encephalopathy, unspecified; Translations: [G93.40] Onset: 5 Chronic Other nervous system disorders (1 source) Metabolic encephalopathy; Translations: [Metabolic encephalopathy] Onset: 5 Chronic Other nervous system disorders (1 source) Chronic pain syndrome; Translations: [Chronic pain syndrome] Onset: 5 Chronic Other nervous system disorders (2 sources) Other acute postprocedural pain; Translations: [Post-op pain] Onset: 5 Episodic Other nutritional; endocrine; and metabolic disorders (17 sources) Body mass index 30+ - obesity 02-21-2021 Chronic Other nutritional; endocrine; and metabolic disorders (17 sources) Simple obesity 02-21-2021 Chronic Other skin disorders (20 sources) Fistula 08-31-2018 Episodic Other skin disorders (20 sources) H/O: psoriasis 05-15-2016 Episodic Other skin disorders (6 sources) Impaired skin integrity 11-25-2024 Episodic Comment on above: Problem added on doc umentation of skin impairments. Regional enteritis and ulcerative colitis (20 sources) [...] risk factors, not elsewhere classified] 12-02-2023 Episodic Respiratory failure; insufficiency; arrest (adult) (1 source) Acute respiratory failure; Translations: [Acute respiratory failure with hypoxia] Onset: 5 Episodic Septicemia (except in labor) (1 source) Sepsis; Translations: [Sepsis, unspecified organism] Onset: 5 Episodic Substance-related disorders (20 sources) Nicotine dependence, cigarettes, uncomplicated; Translations: [Smoker] Onset: 9 11-16-2021 Chronic Comment on above: Added secondary to d ocumentation in Social History. Unclassified (2 sources) ABD PAIN, HEART PALP. 18 WEEKS PREG 06-02-2023 Comment on above: ABD PAIN, HEART PALP . 18 WEEKS PREG Unclassified (8 sources) [place] [facility] Onset: 4 10-27-2023 Unclassified (6 sources) Pressure injury of coccygeal region of back stage III 11-22-2024 Unclassified (6 sources) Pressure injury of left buttock stage III 11-22-2024 Unclassified (6 sources) Pressure injury of right buttock stage III 11-22-2024 Unclassified (1 source) Anal fistula, unspecified; Translations: [Anal fistula, unspecified] Onset: 5 Urinary tract infections (4 sources) Urinary tract infectious disease; Translations: [Urinary tract infection, site not specified] Onset: 3 Episodic Past or Other Problems Problem Classification Problem Date Documented Date Episodic/Chronic Abdominal pain (20 sources) Unspecified abdominal pain; Translations: [Generalized abdominal pain] Onset: 09-10-2018 Resolved: 10-27-2023 11-16-2021 Episodic Comment on above: Problem List clean-u p per request of Phys. EHR Cmte Acute posthemorrhagic anemia (20 sources) Acute posthemorrhagic anemia; Translations: [Acute posthemorrhagic anemia] Onset: 10-25-2023 10-27-2023 Episodic Anal and rectal conditions (10 sources) Rectal abscess ; Translations: [Rectal abscess] Onset: 06-30-2024 Episodic Contraceptive and procreative management (20 sources) [...] Resolved: 10-24-2023 09-05-2023 Episodic Other complications of (20 sources) Rubella non-immune; Translations: [Rubella non-immune status, delivered, current hospitalization] Onset: 10-25-2023 Resolved: 10-27-2023 10-27-2023 Episodic Other nutritional; endocrine; and metabolic disorders (20 sources) Obese class II; Translations: [Obesity, unspecified] Onset: 08-26-2020 Resolved: 12-24-2024 08-26-2020 Chronic Other nutritional; endocrine; and metabolic disorders (20 sources) Obese class I; Translations: [Obesity, unspecified] Onset: 05-01-2023 Resolved: 12-24-2024 05-01-2023 Chronic Other nutritional; endocrine; and metabolic disorders (20 sources) Hypomagnesemia; Translations: [Hypomagnesemia] Onset: 09-11-2018 Resolved: [...] 02-04-2023 Resolved: 07-04-2023 Episodic Residual codes; unclassified (20 sources) Gestation period, 13 weeks; Translations: [13 weeks gestation of ] Onset: 04-30-2023 Resolved: 07-04-2023 07-04-2023 Episodic Residual codes; unclassified (20 sources) Gestation period, 25 weeks; Translations: [25 weeks gestation of ] Onset: 07-27-2023 Resolved: 08-01-2023 08-01-2023 Episodic Residual codes; unclassified (20 sources) Gestation period, 29 weeks; Translations: [29 weeks gestation of ] Onset: 08-23-2023 Resolved: 09-05-2023 09-05-2023 Episodic Skin and subcutaneous tissue infections (20 sources) Abscess of perineum; Translations: [Cutaneous abscess of perineum] Onset: 09-09-2018 09-15-2018 Episodic Unclassified (20 sources) Onset: 05-02-2014 Resolved: 01-22-2024 03-31-2015 Unclassified (1 source) Preprocedural examination done 12-24-2024 Results Test Name Value Interpretation Reference Range Facility C Urineon 12-25-2024 Bacteria identified Cx Nom (U) Microbiology PROCEDURE: Urine Culture [R1] SOURCE: U CleanCatch BODY SITE: COLLECTED DATE/TIME: 12/23/2024 13:55 EDT RECEIVED DATE/TIME: 12/23/2024 14:49 EDT START DATE/TIME: 12/23/2024 14:49 EDT FREE TEXT SOURCE: Gary LEDESMA, Gadiel Vega PA-C, Gadiel Singer. FINAL REPORTS Final Report [] Verified Date/Time: 12/25/2024 09:20 EDT No growth at 2 days. Performing Locations R1: This test was performed at: [facility], [address] [place] [address], [id number] , [place], Normal [facility] Comment on above: Performed By: #### 2 [id number] #### [facility] [address] [place] [address] CBC W Auto Differential pane l (Bld)on 12-24-2024 Basophils (Bld) [#/Vol] 0.04 10*3/uL Normal <0.11 [facility] Comment on above: Order Comment: Speci men Type: BLOOD SPECIMENOrdering Facility: [facility] Address: [address] [place] [address] Performed By: #### 5 7021-8 ####[facility] LABCLIA [id number] [place] [address] [place] Basophils/100 WBC (Bld) 0.5 % Normal [facility] Comment on above: Order Comment: Speci men Type: BLOOD SPECIMENOrdering Facility: [facility] Address: [address] [place] [address] Performed By: #### 5 7021-8 ####[facility] LABCLIA [id number] [place] [address] [place] Differential cell count method Nom (Bld) Auto Normal [facility] Comment on above: Order Comment: Speci men Type: BLOOD SPECIMENOrdering Facility: [facility] Address: [address] [place] [address] Performed By: #### 5 7021-8 ####[facility] LABCLIA [id number] [place] [id number] [place] Eosinophils (Bld) [#/Vol] 0.14 10*3/uL Normal <0.46 [facility] Comment on above: Order Comment: Speci men Type: BLOOD SPECIMENOrdering Facility: [facility] Address: [address] [place] [address] Performed By: #### 5 7021-8 ####[facility] LABCLIA [id number] [address] [address] [place] Eosinophils/100 WBC (Bld) 1.7 % Normal [facility] Comment on above: Order Comment: Speci men Type: BLOOD SPECIMENOrdering Facility: [facility] Address: [address] [place] [address] Performed By: #### 5 7021-8 ####[facility] LABIA [id number] [address], [place] [address] [place] Erythrocyte distribution width (RBC) [Ratio] 16.3 % High 11.5-15.0 [facility] Comment on above: Order Comment: Speci men Type: BLOOD SPECIMENOrdering Facility: [facility] Address: [address] [place] [address] Performed By: #### 5 7021-8 ####[facility] LABCLIA [id number] [place] [address] [place] Hematocrit (Bld) [Volume fraction] 31.8 % Low 36.0-46.0 [facility] Comment on above: Order Comment: Speci men Type: BLOOD SPECIMENOrdering Facility: [facility] Address: [address] [place] [address] Performed By: #### 5 7021-8 ####[facility] LABCLIA [id number] [address] [address] [place] Hemoglobin (Bld) [Mass/Vol] 9.3 g/dL Low 11.5-15.5 [facility] Comment on above: Order Comment: Speci men Type: BLOOD SPECIMENOrdering Facility: [facility] Address: [address] [place] [address] Performed By: #### 5 7021-8 ####[facility] LABCLIA [id number] [place] [address] [place] Immature granulocytes (Bld) [#/Vol] 0.07 10*3/uL Normal <0.10 [facility] Comment on above: Order Comment: Speci men Type: BLOOD SPECIMENOrdering Facility: [facility] Address: [address] [place] [address] Performed By: #### 5 7021-8 ####[facility] LABCLIA [id number] [place] [address] [place] Immature granulocytes/100 WBC (Bld) 0.9 % Normal [facility] Comment on above: Order Comment: Speci men Type: BLOOD SPECIMENOrdering Facility: [facility] Address: [address] [place] [address] Performed By: #### 5 7021-8 ####[facility] LABCLIA [id number] [place] [address] [place] Lymphocytes (Bld) [#/Vol] 1.13 10*3/uL Normal 1.00-4.00 [facility] Comment on above: Order Comment: Speci men Type: BLOOD SPECIMENOrdering Facility: [facility] Address: [address] [place] [address] Performed By: #### 5 7021-8 ####[facility] LABCLIA [id number] [place] [address] [place] Lymphocytes/100 WBC (Bld) 13.7 % Normal [facility] Comment on above: Order Comment: Speci men Type: BLOOD SPECIMENOrdering Facility: [facility] Address: [address] [place] [address] Performed By: #### 5 7021-8 ####[facility] LABCLIA [id number] [place] [id number] [place] MCH (RBC) [Entitic mass] 28.9 pg Normal 26.0-34.0 [facility] Comment on above: Order Comment: Speci men Type: BLOOD SPECIMENOrdering Facility: [facility] Address: [address] [place] [address] Performed By: #### 5 7021-8 ####[facility] LABCLIA [id number] [place] [address] [place] MCHC (RBC) [Mass/Vol] 29.2 g/dL Low 30.5-36.0 [facility] Comment on above: Order Comment: Speci men Type: BLOOD SPECIMENOrdering Facility: [facility] Address: [address] [place] [address] Performed By: #### 5 7021-8 ####[facility] LABIA [id number] [place] [address] [place] MCV (RBC) [Entitic vol] 98.8 fL Normal 80.0-100.0 [facility] Comment on above: Order Comment: Speci men Type: BLOOD SPECIMENOrdering Facility: [facility] Address: [address] [place] [address] Performed By: #### 5 7021-8 ####[facility] LABIA [id number] [place] [address] [place] Monocytes (Bld) [#/Vol] 0.80 10*3/uL Normal <0.87 [facility] Comment on above: Order Comment: Speci men Type: BLOOD SPECIMENOrdering Facility: [facility] Address: [address] [place] [address] Performed By: #### 5 7021-8 ####[facility] LABIA [id number] [place] [address] [place] Monocytes/100 WBC (Bld) 9.7 % Normal [facility] Comment on above: Order Comment: Speci men Type: BLOOD SPECIMENOrdering Facility: [facility] Address: [address] [place] [address] Performed By: #### 5 7021-8 ####[facility] LABCLIA [id number] [address] [place] [address] [place] Neutrophils (Bld) [#/Vol] 6.04 10*3/uL Normal 1.45-7.50 [facility] Comment on above: Order Comment: Speci men Type: BLOOD SPECIMENOrdering Facility: [facility] Address: [address] [place] [address] Performed By: #### 5 7021-8 ####[facility] LABCLIA [id number] [address], [place] [address] [place] Neutrophils/100 WBC (Bld) 73.5 % Normal [facility] Comment on above: Order Comment: Speci men Type: BLOOD SPECIMENOrdering Facility: [facility] Address: [address] [place] [address] Performed By: #### 5 7021-8 ####[facility] LABCLIA [id number] [place] [address] [place] Nucleated RBC (Bld) [#/Vol] 10*3/uL Normal <0.01 [facility] Comment on above: Order Comment: Speci men Type: BLOOD SPECIMENOrdering Facility: [facility] Address: [address] [place] [address] Performed By: #### 5 7021-8 ####[facility] LABCLIA [id number] [facility] [place] [id number] [place] Nucleated RBC/100 WBC (Bld) [Ratio] 0.0 /100 WBC Normal [facility] Comment on above: Order Comment: Speci men Type: BLOOD SPECIMENOrdering Facility: [facility] Address: [address] [place] [address] Performed By: #### 5 7021-8 ####[facility] LABCLIA [id number] [address], [facility] [place] Platelet mean volume (Bld) [Entitic vol] 9.0 fL Normal 9.0-12.7 [facility] Comment on above: Order Comment: Speci men Type: BLOOD SPECIMENOrdering Facility: [facility] Address: [address] [place] [address] Performed By: #### 5 7021-8 ####[facility] LABCLIA [id number] [facility] [address] [address] [place] Platelets (Bld) [#/Vol] 667 10*3/uL High 150-400 [facility] Comment on above: Order Comment: Speci men Type: BLOOD SPECIMENOrdering Facility: [facility] Address: [address] [place] [address] Performed By: #### 5 7021-8 ####[facility] LABCLIA [id number] [address] [address] [place] RBC (Bld) [#/Vol] 3.22 10*6/uL Low 3.90-5.20 [facility] Comment on above: Order Comment: Speci men Type: BLOOD SPECIMENOrdering Facility: [facility] Address: [address] [place] [address] Performed By: #### 5 7021-8 ####[facility] LABCLIA [id number] [address] [address] [place] [place] WBC (Bld) [#/Vol] 8.22 10*3/uL Normal 3.70-11.00 [facility] Comment on above: Order Comment: Speci men Type: BLOOD SPECIMENOrdering Facility: [facility] Address: [address] [place] [address] Performed By: #### 5 7021-8 ####[facility] LABCLIA [id number] [address] [address] [place] Comprehensive metabolic 2000 panelon 12-24-2024 Albumin [Mass/Vol] 2.4 g/dL Low 3.9-4.9 [facility] Comment on above: Order Comment: Speci men Type: BLOOD SPECIMENOrdering Facility: [facility] Address: [address] [place], [place] [address] Performed By: #### 5 0190-8, 51746-7, 4 ####[facility] LABCLIA [id number] [place] [id number] [place] ALP [Catalytic activity/Vol] 172 U/L High 34-123 [facility] Comment on above: Order Comment: Speci men Type: BLOOD SPECIMENOrdering Facility: [facility] Address: [address] [place] [address] Performed By: #### 5 0190-8, 18275-6, 2275-12 ####[facility] LABCLIA [id number] [place] [address] [place] ALT [Catalytic activity/Vol] 12 U/L Normal 7-38 [facility] Comment on above: Order Comment: Speci men Type: BLOOD SPECIMENOrdering Facility: [facility] Address: [address] [place] [address] Performed By: #### 5 0190-8, 92654-8, 2275-12 ####[facility] LABIA [id number] [place] [address] [place] Anion gap [Moles/Vol] 14 mmol/L Normal 8-15 [facility] Comment on above: Order Comment: Speci men Type: BLOOD SPECIMENOrdering Facility: [facility] Address: [address] [place], [place] [address] Performed By: #### 5 0190-8, 95319-8, 2275-12 ####[facility] LABIA [id number] [place] [id number] [place] AST [Catalytic activity/Vol] 21 U/L Normal 13-35 [facility] Comment on above: Order Comment: Speci men Type: BLOOD SPECIMENOrdering Facility: [facility] Address: [address] [place], [place] [address] Performed By: #### 5 0190-8, 90172-8, 4 ####[facility] LABCLIA [id number] [address] [address] [place] Bilirubin [Mass/Vol] mg/dL Low 0.2-1.3 [facility] Comment on above: Order Comment: Speci men Type: BLOOD SPECIMENOrdering Facility: [facility] Address: [address] [place], [place] [address] Performed By: #### 5 0190-8, 74207-1, 2275-12 ####[facility] LABCLIA [id number] [place] [address] [place] Calcium [Mass/Vol] 8.5 mg/dL Normal 8.5-10.2 [facility] Comment on above: Order Comment: Speci men Type: BLOOD SPECIMENOrdering Facility: [facility] Address: [address] [place] [address] Performed By: #### 5 0190-8, 51949-1, 2275-12 ####[facility] LABIA [id number] [place] [address] [place] Chloride [Moles/Vol] 107 mmol/L Normal 98-107 [facility] Comment on above: Order Comment: Speci men Type: BLOOD SPECIMENOrdering Facility: [facility] Address: [address] [place], [place] [address] Performed By: #### 5 0190-8, 86143-3, 2275-12 ####[facility] LABIA [id number] [address] [address] [place] CO2 [Moles/Vol] 22 mmol/L Normal 22-30 [facility] Comment on above: Order Comment: Speci men Type: BLOOD SPECIMENOrdering Facility: [facility] Address: [address] [place], [place] [address] Performed By: #### 5 0190-8, 14939-6, 2275-12 ####[facility] LABIA [id number] [address] [address] [place] Creatinine [Mass/Vol] 0.63 mg/dL Normal 0.58-0.96 [facility] Comment on above: Order Comment: [place] Type: BLOOD SPECIMENOrdering Facility: [facility] Address: [address] [place] [address] Performed By: #### 5 0190-8, 27718-9, 2275-12 ####[facility] LABIA [id number] [place] [address] [place] Creatinine and Glomerular filtration rate.predicted panel (S/P/Bld) 123 mL/min/1.73m??? Normal >=60 [facility] Comment on above: Order Comment: [place] Type: BLOOD SPECIMENOrdering Facility: [facility] Address: [address] [place] [address] Result Comment: Alysha mated Glomerular Filtration Rate [...] reflect actual GFR. Performed By: #### 5 0190-8, 63631-0, 2275-12 ####[facility] LABIA [id number] [address] [address] [place] Glucose [Mass/Vol] 56 mg/dL Low 74-99 [facility] Comment on above: Order Comment: [place] Type: BLOOD SPECIMENOrdering Facility: [facility] Address: [address] [place] [address] Result Comment: The [place] [employer] (ADA) provides guidance for cutoff [...] Standards of Medical Care in Diabetes 2016, [place] [employer]. Diabetes Care. 2016.39(Suppl 1). Performed By: #### 5 0190-8, 95239-8, 2275-12 ####[facility] LABCLIA [id number] [place] [address] [place] Potassium [Moles/Vol] 3.7 mmol/L Normal 3.7-5.1 [facility] Comment on above: Order Comment: Speci men Type: BLOOD SPECIMENOrdering Facility: [facility] Address: [address] [place] [address] Performed By: #### 5 0190-8, , 2275-12 ####[facility] LABCLIA [id number] [place] [address] [place] Protein [Mass/Vol] 6.1 g/dL Low 6.3-8.0 [facility] Comment on above: Order Comment: Speci men Type: BLOOD SPECIMENOrdering Facility: [facility] Address: [address] [place] [address] Performed By: #### 5 0190-8, 83601-4, 2275-12 ####[facility] LABCLIA [id number] [place] [address] [place] Sodium [Moles/Vol] 143 mmol/L Normal 136-144 [facility] Comment on above: Order Comment: Speci men Type: BLOOD SPECIMENOrdering Facility: [facility] Address: [address] [place] [address] Performed By: #### 5 0190-8, 44684-7, 2275-12 ####[facility] LABCLIA [id number] [place] [id number] [place] Urea nitrogen [Mass/Vol] 9 mg/dL Normal 7-21 [facility] Comment on above: Order Comment: Speci men Type: BLOOD SPECIMENOrdering Facility: [facility] Address: [address] [place] [address] Performed By: #### 5 0190-8, 62125-3, 2275-4 ####[facility] LABCLIA [id number] [place] [id number] [facility] [place] ECG COMPLETEon 12-24-2024 ECG COMPLETE Ventricular Rate : 8 6 BPM Atrial Rate : 86 BPM P-R Interval : 130 ms QRS Duration : 74 ms Q-T Interval : 358 ms QTC Calculation(Bazett) : 428 ms Calculated P [place] : 53 degrees Calculated R [place] : 62 degrees Calculated T [place] : 22 degrees NORMAL SINUS RHYTHM NONSPECIFIC ST ABNORMALITY ABNORMAL ECG Reconfirmed by MD DURAN ANISH ([id number]) on 12/25/2024 1:05:18 PM NAME : ROLA AGUILAR PID : [id number] : 1995 Gender : Female Race : ORD : [id number] Procedure Date : Dec 24 2024 07:04:06 Edit Date : Dec 25 2024 13:05:21 Diagnosis: NORMAL SINUS RHYTHM NONSPECIFIC ST ABNORMALITY ABNORMAL ECG Reconfirmed by MD DURAN ANISH ([id number]) on 12/25/2024 1:05:18 PM Test Reason : Z01.818 Pre-op evaluation Location : 145 : [place] Overread By : MD DURAN ANISH Edited By : MD DURAN ANISH Referred By : SHAQ THAKKAR Acquired by : VS, Normal [facility] Ferritin SerPl-mCncon 2024 Ferritin [Mass/Vol] 455.0 ng/mL High 14.7-205.1 [facility] Comment on above: Order Comment: Speci men Type: BLOOD SPECIMENOrdering Facility: [facility] Address: [address] [place] [address] Performed By: #### 5 0190-8, 43017-2, 4 ####[facility] LABCLIA [id number] [place] [address] [place] HISTORY PHYSICALon HISTORY PHYSICAL HNO ID: [id number] Author: MICHAEL CHEEMA APRN.JIMMY Service: ? Author Type: Nurse Practitioner Type: H&P Filed: 12/25/2024 12:43 Note Text: HISTORY AND PHYSICAL EXAMINATION SERVICE DATE: 12/24/2024 SERVICE TIME: 7:42 AM PRIMARY CARE PHYSICIAN: No primary care provider on file. REASON FOR VISIT: Rola Aguilar is a 29 year old female who is scheduled for COLECTOMY ABDOMINAL W/ PROCTECTOMY W/ ILEOSTOMY at the request of Dr. Shaq Thakkar for consultation. My final recommendation will be communicated back to the requesting physician by way of shared medical record or letter. Assessment Patient has the following medical conditions which may affect cele-operative course: Anemia Assessment: Chronic d/t Chron's CBC with iron studies ordered today Has had blood transfusion in the past ~ 5 years ago Hemoglobin (g/dL) Date Value 12/18/2024 8.6 12/17/2024 10.4 01/19/2024 10.2 01/24/2021 12.9 01/21/2021 12.1 12/22/2020 12.3 Generalized seizures (HCC) Assessment: New onset in the beginning of November She reports having 5 grand mal seizures Magnesium was found to be very low- replaced in hospital and started on oral as tolerated Was taken to ED intubated for airway protection Started on Keppra 500 mg BID No seizures since starting medication Saw Neurology Magdalene Boyle on 12/15- Aware she is having procedure on 01/08/2025 Per her Ov Note: MRI revealed mild changes thought to be related to seizure activity with recommendations to update brain MRI with and without contrast in 2-4 weeks. She had an LP that was negative for infectious cause and NMDA receptor antibodies negative. Continuous video EEG did not reveal any seizure activity. She was started on Keppra 500mg PO BID. Ileostomy in place (HCC) Assessment: Ileostomy in place Following with GI Upcoming procedure Perineal abscess Assessment: s/p seton placement 12/18/2024 Oxycodone as needed for pain Upcoming procedure Anxiety and depression Assessment: Controlled with buspirone ANESTHESIA FINDINGS: Intubation History: No history of difficult intubation Significant Anesthesia Considerations: none Airway History: No history of difficult airway [place] Activity Status Index: METS: Walk indoors, such as around the house (1.75 METs) Do light work around the house, such as dusting or washing dishes (2.70 METs) Take care of self; that is eating, dressing, bathing, using the toilet (2.75 METs) Walk a block or two on level ground (2.75 METs) Do moderate work around the house, such as vacuuming, sweeping floors, or carrying in groceries (3.50 METs) Climb a flight of stairs or walk up a hill (5.50 METs) DASI Score: 18.95 Patient denies any chest pain or undue shortness of breath with the above physical activity. STOP-Bang Score: Denies snoring loudly Denies feeling tired, fatigued, or sleepy during the daytime Has not been observed to stop breathing or choking/gasping during sleep Denies having high blood pressure BMI less than or equal to 35 kg/m2 Patient 50 years old or younger Does not have a large neck Non-male patient STOP-Bang Score: 0 [id number] Score: Age: <65 Sex: female CHF history: No Hypertension history: No Stroke/TIA/thromboemb olism history: No Vascular disease history: No Diabetes history: No [id number] Score: 1 ARISCAT Score: Age: <=50 Preoperative SpO2: >=96% Respiratory infection in the last month: No Preoperative anemia: No Duration of surgery: >3 hrs Emergency procedure: No ARISCAT Score: 23 I - PHYSICAL EVALUATION AIRWAY Patient intubated: No. Tracheostomy tube not present Mallampati: I. TM distance: >3 FB. Neck ROM: full ROM without neurological symptoms. Mouth opening: adequate. Short neck: no. Thick neck: no Lip Bite Test: I Microretrognathia/Cristina ronagthia/Recessed Chin: No DENTAL Dental findings: missing tooth/teeth and poor dentition. II - ANESTHESIA PLAN Beta Olena Monitoring Plan Post Procedure Analgesic Plan Prepared for surgery: This patient is optimally prepared for surgery pending recommendations from blood management CONSULTS: Patient does not require consults for optimization at this time. The Following Tests/Procedures Have Been Initiated: Orders Placed This Encounter Iron and TIBC Standing Status: Future Number of Occurrences: 1 Expected Date: 12/24/2024 Expiration Date: 03/25/2025 Ferritin Standing Status: Future Number of Occurrences: 1 Expected Date: 12/24/2024 Expiration Date: 03/25/2025 Scheduling Instructions: In preparation for this test, do not take multivitamins or dietary supplements containing biotin (vitamin B7) for at least 12 hours. Biotin is commonly found in hair, skin, and nail supplements and multivitamins. Tell your doctor if you take supplements containing biotin as part of your medication history. ECG (IN OFFICE) Planned Anesthetic: Per anesthesia c (more content not included)... Normal [facility] Iron and Iron binding capaci ty panelon 12-24-2024 Iron [Mass/Vol] 26 ug/dL Low 41-186 [facility] Comment on above: Order Comment: Speci men Type: BLOOD SPECIMENOrdering Facility: [facility] Address: [address] [place] [address] Performed By: #### 5 0190-8, 05460-7, 2275-12 ####[facility] LABIA [id number] [place] [address] [place] Iron binding capacity [Mass/Vol] 128 ug/dL Low 232-386 [facility] Comment on above: Order Comment: Speci men Type: BLOOD SPECIMENOrdering Facility: [facility] Address: [address] [place] [address] Performed By: #### 5 0190-8, 92457-2, 2275-12 ####[facility] LABIA [id number] [place] [id number] [place] Iron/TIBC [Molar ratio] 20.3 % Normal 15.0-57.0 [facility] Comment on above: Order Comment: Speci men Type: BLOOD SPECIMENOrdering Facility: [facility] Address: [address] [place] [address] Performed By: #### 5 0190-8, , 2275-12 ####[facility] LABCLIA [id number] [place] [address] [place] TYPE + SCREENon 12-24-2024 ABO B Normal [facility] Comment on above: Order Comment: Speci men Type: BLOOD SPECIMENOrdering Facility: [facility] Address: [address] [place] [address] Performed By: #### T SCR ####[facility] BLOOD BANKCLIA [id number] [place] [address] [place] Rh Nom (Bld) Positive Normal [facility] Comment on above: Order Comment: Speci men Type: BLOOD SPECIMENOrdering Facility: [facility] Address: [address] [place] [address] Performed By: #### T SCR ####[facility] BLOOD BANKCLIA [id number] [place] [address] [place] TYPE AND SCREEN EXPIRATION 12/27/2024 23:59 Normal [facility] Comment on above: Order Comment: Speci men Type: BLOOD SPECIMENOrdering Facility: [facility] Address: [address] [place] [address] Performed By: #### T SCR ####[facility] BLOOD BANKCLIA [id number] [place] [address] [place] Ambulatory Visit Summaryon 0 12-23-2024 Ambulatory Visit Summary Ambulatory Visit Summary ROLA AGUILAR :1995 Visit Date:12/23/2024 Ambulatory Visit Instructions Your Diagnosis Crohn's disease S/P ileostomy Your Care Team Attending Physician - Benton GILES, Ja Marques Primary Care Physician - NONE, XXXX This Is Your Medications List Contact prescribing physician if questions or concerns Misc Prescription (amoxicillin-clavulan ate (Augmentin 875 mg oral tablet)) busPIRone (busPIRone 10 mg Tab) levetiracetam (Keppra 250 mg Tab) magnesium glycinate (magnesium glycinate 100 mg oral capsule) ondansetron (Zofran ODT 4 mg Tab-Dis) ondansetron (ondansetron 4 mg Dis Tab) promethazine (promethazine 25 mg Tab) Procedures Performed Incision and drainage of ischiorectal and/or perirectal abscess (separate procedure) (07/20/2024), Incision and drainage of vulva or perineal abscess (07/20/2024), Placement of seton (07/20/2024), Surgical treatment of anal fistula (fistulectomy/fistulo scott); subcutaneous (07/20/2024), Colonoscopy, flexible; diagnostic, including collection of specimen(s) by brushing or washing, when performed (separate procedure) (01/20/2024), Small intestinal endoscopy, enteroscopy beyond second portion of duodenum, including ileum; diagnostic, with or without collection of specimen(s) by brushing or washing (separate procedure) (01/20/2024), delivery only; (10/24/2023), Salpingectomy, complete or partial, unilateral or bilateral (separate procedure) (10/24/2023), Colonoscopy (01/18/2023), Colonoscopy, flexible; diagnostic, including collection of specimen(s) by brushing or washing, when performed (separate procedure) (01/18/2023), Small intestinal endoscopy, enteroscopy beyond second portion of duodenum, including ileum; diagnostic, with or without collection of specimen(s) by brushing or washing (separate procedure) (01/18/2023), Colonoscopy (2013), Esophagogastroduodeno scopy, H/O: ileostomy, History of ileostomy. Discharge Vitals Heart Rate (Peripheral) 121 Blood Pressure 104/77 Height 167 cm Height 66 in Weight 54.7 kg Weight 120.593 lb BMI 19.61 What to do next Someone Will Contact You Regarding These Appointments [facility] External Ambulatory Referral, Gastroenterology, 12/23/24 10:48:00 EDT, Crohn's disease S/P ileostomy Medications What How Much When Instructions Unchanged busPIRone (busPIRone 10 mg Tab) 1 Tablets By Mouth 2 times a day Contact prescribing physician if questions or concerns Unchanged levetiracetam (Keppra 250 mg Tab) 2 Tablets By Mouth 2 times a day Contact prescribing physician if questions or concerns Unchanged magnesium glycinate (magnesium glycinate 100 mg oral capsule) 2 Capsules By Mouth Every day Contact prescribing physician if questions or concerns Unchanged Misc Prescription (amoxicillin-clavulan ate (Augmentin 875 mg oral tablet)) 1 Tablets Every 12 hours Contact prescribing physician if questions or concerns Unchanged ondansetron (ondansetron 4 mg Dis Tab) 1 Tablets By Mouth Every 6 hours Contact prescribing physician if questions or concerns Unchanged ondansetron (Zofran ODT 4 mg Tab-Dis) 1 Tablets By Mouth Every 6 hours Contact prescribing physician if questions or concerns Unchanged promethazine (promethazine 25 mg Tab) 1 Tablets By Mouth Every 6 hours as needed for as needed for nausea/vomiting Contact prescribing physician if questions or concerns Allergies No Known Allergies Problems Ongoing - Any problem that you are currently receiving treatment for. Anxiety disorder due to medical condition Bipolar depression Crohn's disease Generalized anxiety disorder H/O psoriasis Mechanical deep vein thrombosis (DVT) prophylaxis in place Pressure ulcer of coccygeal region, stage 3 Pressure ulcer of left buttock, stage 3 Pressure ulcer of right buttock, stage 3 Protein-calorie malnutrition, severe S/P ileostomy Sinus tachycardia Smoker Vitamin A deficiency Historical - Any problem that you are no longer receiving treatment for. Fistula Panic attacks Vitamin D deficiency Patient Survey You may receive a survey via text or e-mail asking about your office visit. Please share your experience with us by completing your survey. We appreciate your feedback and thank you for choosing us for your care. Normal [facility] BMPon 12-23-2024 Anion gap [Moles/Vol] 11 mmol/L Normal 6-16 [facility] Comment on above: Performed By: #### 2 [id number] #### [facility] [address] [place] [address] Calcium [Mass/Vol] 7.7 mg/dL Low 8.9-11.1 [facility] Comment on above: Performed By: #### 2 [id number] #### [facility] [address] [place] [address] Chloride [Moles/Vol] 109 mmol/L Normal 101-111 [facility] Comment on above: Performed By: #### 2 [id number] #### [facility] [address] [place] [address] CO2 [Moles/Vol] 27 mmol/L Normal 21-31 [facility] Comment on above: Performed By: #### 2 401195 #### [facility] [address] [place] [address] Creatinine [Mass/Vol] 0.5 mg/dL Normal 0.5-1.3 [facility] Comment on above: Performed By: #### 2 292534 #### [facility] [address] [place] [address] Glucose [Mass/Vol] 78 mg/dL Normal 55-199 [facility] Comment on above: Performed By: #### 2 [id number] #### [facility] [address] [place] [address] Potassium [Moles/Vol] 3.6 mmol/L Normal 3.5-5.3 [facility] Comment on above: Performed By: #### 2 631452 #### [facility] [address] [place] [address] Sodium [Moles/Vol] 143 mmol/L Normal 135-145 [facility] Comment on above: Performed By: #### 2 418510 #### [facility] [address] [place] [address] Urea nitrogen [Mass/Vol] 12 mg/dL Normal 5-21 [facility] Comment on above: Performed By: #### 2 054949 #### [facility] [address] [place] [address] Urea nitrogen/Creatinine [Mass ratio] 24 No Units High 10-20 [facility] Comment on above: Performed By: #### 2 962978 #### [facility] [address] [place] [address] CBC w/ Auto Diffon 5 Basophils/100 WBC (Bld) 0.3 % Normal 0.0-2.0 [facility] Comment on above: Performed By: #### 2 256144 #### [facility] [address] [place] [address] Basophils/Leukocytes Auto (Bld) [Pure # fraction] 0.0 E9/L Normal 0.0-0.2 [facility] Comment on above: Performed By: #### 2 678444 #### [facility] [address] [place] [address] Eosinophils (Bld) [#/Vol] 0.0 E9/L Normal 0.0-0.5 [facility] Comment on above: Performed By: #### 2 739216 #### [facility] [address] [place] [address] Eosinophils/100 WBC (Bld) 0.5 % Normal 0.0-8.0 [facility] Comment on above: Performed By: #### 2 425796 #### [facility] [address] [place] [address] Erythrocyte distribution width (RBC) [Ratio] 17.0 % High 10.9-14.2 [facility] Comment on above: Performed By: #### 2 851024 #### [facility] [address] [place] [address] Hematocrit (Bld) [Volume fraction] 30.3 % Low 34.0-46.0 [facility] Comment on above: Performed By: #### 2 636390 #### [facility] [address] [place] [address] Hemoglobin (Bld) [Mass/Vol] 9.9 g/dL Low 12.0-16.0 [facility] Comment on above: Performed By: #### 2 598038 #### [facility] [address] [place] [address] Lymphocytes (Bld) [#/Vol] 1.1 E9/L Normal 1.0-4.0 [facility] Comment on above: Performed By: #### 2 591134 #### [facility] [address] [place] [address] Lymphocytes/100 WBC (Bld) 10.6 % Low 14.0-50.0 [facility] Comment on above: Performed By: #### 2 644985 #### [facility] [address] [place] [address] MCH (RBC) [Entitic mass] 29.7 pg Normal 27.0-34.0 [facility] Comment on above: Performed By: #### 2 850803 #### [facility] [address] [place] [address] MCHC (RBC) [Mass/Vol] 32.7 g/dL Normal 31.4-36.0 [facility] Comment on above: Performed By: #### 2 926974 #### [facility] [address] [place] [address] MCV (RBC) [Entitic vol] 90.8 fL Normal 80.0-100.0 [facility] Comment on above: Performed By: #### 2 736904 #### [facility] [address] [place] [id number] Monocytes (Bld) [#/Vol] 0.6 E9/L Normal 0.2-1.0 [facility] Comment on above: Performed By: #### 2 [id number] #### [facility] [address] [place] [address] Neutrophils (Bld) [#/Vol] 8.1 E9/L High 2.0-7.5 [facility] Comment on above: Performed By: #### 2 [id number] #### [facility] [address] [place] [address] Neutrophils/100 WBC (Bld) 82.2 % High 36.0-75.0 [facility] Comment on above: Performed By: #### 2 [id number] #### [facility] [address] [place] [address] Platelet 695.0 E9/L High 150.0-500.0 [facility] Comment on above: Performed By: #### 2 [id number] #### [facility] [address] [place] [address] Platelet mean volume (Bld) [Entitic vol] 6.5 fL Normal 6.4-10.8 [facility] Comment on above: Performed By: #### 2 [id number] #### [facility] [address] [place] [address] RBC (Bld) [#/Vol] 3.3 E12/L Low 4.3-5.9 [facility] Comment on above: Performed By: #### 2 [id number] #### [facility] [address] [place] [address] WBC corrected for nucl RBC Auto (Bld) [#/Vol] 9.9 E9/L Normal 4.0-11.0 [facility] Comment on above: Result Comment: Cele pheral smear review performed. Performed By: #### 2 [id number] #### [facility] [address] [place] [address] CHEMISTRYOrdered By: SYSTEM SYSTEM on 12-23-2024 Albumin [Mass/Vol] 2.5 g/dL Low 3.3 - 5.0 gm/dL Remisol Chem Albumin/Globulin [Mass ratio] 0.7 {ratio} Low 1.1 - 2.2 Remisol Chem ALP [Catalytic activity/Vol] 169 [iU]/d High 21 - 98 Int._Unit/L Remisol Chem ALT No additional P-5'-P [Catalytic activity/Vol] 11 [iU]/d Normal 6 - 46 Int._Unit/L Remisol Chem Anion gap [Moles/Vol] 11 mmol/L Normal 6 - 16 mEq/L R emisol Chem AST [Catalytic activity/Vol] 14 [iU]/d Normal 5 - 43 Int._Unit/L Remisol Chem Bilirubin [Mass/Vol] 0.2 mg/dL Normal 0.0 - 1 .1 mg/dL Remisol Chem Bilirubin.direct [Mass/Vol] 0.1 mg/dL Normal 0.0 - 0.4 mg/dL Remisol Chem Bilirubin.indirect [Mass or moles/Vol] 0.1 mg/dL Normal 0.1 - 0.9 mg/dL Remisol Chem Calcium [Mass/Vol] 7.7 mg/dL Low 8.9 - 11. 1 mg/dL Remisol Chem Chloride [Moles/Vol] 109 mmol/L Normal 101 - 1 11 mmol/L Remisol Chem CO2 [Moles/Vol] 27 mmol/L Normal 21 - 31 mmol/L Remis ol Chem Creatinine [Mass/Vol] 0.5 mg/dL Normal 0.5 - 1.3 mg/dL Remisol Chem eGFR 130 mL/min/1.73 m2 Normal >=59mL/mi n/1.7 3 m2 Remisol Chem Globulin (S) [Mass/Vol] 3.7 g/dL Normal 1.4 - 4.0 gm/dL Remisol Chem Glucose [Mass/Vol] 78 mg/dL Normal 55 - 199 mg/dL Re misol Chem Lactic Acid Lvl 1.1 mmol/L Normal 0.5 - 2.2 mmol/L Remisol Chem Lipase [Catalytic activity/Vol] 30 U/L Normal 13 - 58 unit/L Remisol Chem Potassium [Moles/Vol] 3.6 mmol/L Normal 3.5 - 5.3 mmol/L Remisol Chem Protein [Mass/Vol] 6.2 g/dL Normal 6.0 - 7.8 gm/dL Remisol Chem Sodium [Moles/Vol] 143 mmol/L Normal 135 - 145 mmol/L Remisol Chem Urea nitrogen [Mass/Vol] 12 mg/dL Normal 5 - 21 mg/dL Remisol Chem Urea nitrogen/Creatinine [Mass ratio] 24 mg/mg High 10 - [address] Abdomen/Pelvis w/ Contras ton 12-23-2024 CT Abdomen/Pelvis w/ Contrast Exam Date/Time: 12/23/2024 14:26 EDT Reason for Exam: ABDOMINAL PAIN, ACUTE, NONLOCALIZED;Other (please specify) Report IMPRESSION: CIRCUMFERENTIAL WALL THICKENING OF COLON WITH MILD PERICOLONIC FAT STRANDING, UNCHANGED. RELATIVE SPARING OF CECUM. CIRCUMFERENTIAL WALL THICKENING OF TERMINAL AND DISTAL ILEUM AND ILEOCECAL VALVE TO LOOP COLOSTOMY, WITH MILD PERICOLONIC FAT STRANDING, UNCHANGED. ABOVE FINDINGS CONSISTENT WITH PATIENT CLINICAL HISTORY OF INFLAMMATORY BOWEL DISEASE. LEFT PERIANAL FISSURES/ABSCESS WITH INTERVAL PLACEMENT OF PERIANAL DRAINAGE CATHETER DISCUSSED. HEPATIC STEATOSIS. BORDERLINE SPLENOMEGALY. CT OF THE ABDOMEN AND PELVIS WITH INTRAVENOUS CONTRAST MEDIUM. HISTORY: ABDOMINAL PAIN, ACUTE, NONLOCALIZED. PATIENT PRESENTS WITH C/O ABDOMINAL PAIN. STATES SHE HAD PERIANAL SX DONE AT [facility] ON [address]. PT STATES THEY FOUND 3 FISTULAS AND HAD DRAIN PLACED/ILEOSTOMY CROHNS SALPINGECTOMY TECHNICAL FACTORS: CT imaging of the abdomen and pelvis were obtained and formatted as 5 mm contiguous axial images from the domes of the diaphragm to the symphysis pubis. Sagittal and coronal reconstructions were also obtained. Comparison: CT abdomen pelvis, 12/16/2024. Findings: Lower chest: Cardiac size normal. No pericardial effusion. No coronary artery calcification. Pleural-based noncalcified 1 cm nodule, posterior right lower lobe, and 8mm similar finding inferior and medial to left again demonstrated. Liver: Normal in size, shape, and decreased in attenuation. Bile Ducts: Normal in caliber. Gallbladder: No stones or wall thickening. Pancreas: Normal without masses, cysts, ductal dilatation or calcification. Spleen: Upper limits of normal in size with AP diameter 13.6 cm. No masses or calcifications. No splenules. Kidneys: Normal in size and enhancement. No hydronephrosis, masses, or stones. Report Adrenals: Normal. Small bowel: Wall thickening with mild fat stranding terminal and distal ileum extending to level of loop ileostomy. Remainder of small bowel proximal to ileostomy normal in caliber and thickness. These findings are unchanged. Appendix: Normal. Colon: Normal to decreased caliber colon with circumferential wall thickening and mild pericolonic fat stranding unchanged. Fluid-filled normal caliber cecum. Interval placement of looped catheter coursing from the rectum and anus into to perianal fluid collections are identified (series 3, images 16 through 19). Peritoneum: No free air. Vessels: Aorta normal in course and caliber. Portal vein, splenic vein, superior mesenteric vein are patent. Lymph nodes: Retroperitoneal: No enlarged retroperitoneal lymph nodes. Mesenteric: No enlarged mesenteric lymph nodes. Pelvic: No enlarged pelvic lymph nodes. Ureters: Normal in course and caliber. No calcifications. Bladder: No wall thickening. Reproductive organs: No pelvic masses. Abdominal Wall: No hernia identified. No diastasis of rectus musculature. 3.3 x 1.2 cm irregularly thickened left perianal fluid collection with thickened daniel again identified. Drainage catheter visualized extending from fluid collection Bones: No bone lesions. No degenerative changes. No post operative changes. All CT scans at this facility use dose modulation, iterative reconstruction, and/or weight based dosing when appropriate to reduce radiation dose to as low as reasonably achievable. Technical Comments: GFR (mL/min/1/73m2) age Contrast: Isovue 300 Contrast amount in ml's: 100.00 Rectal Contrast Given? No Report Ordering Provider: Gadiel Vega FINAL REPORT Dictated: 12/23/2024 2:49 pm SignAnshul granados MD Signed (Electronic Signature): 12/23/2024 2:49 pm Signed by: Anshul Cardoza MD Transcribed by: CLARICE Technologist: IHSAN Normal [facility] ED Clinical Summaryon 2024 ED Clinical Summary ED Clinical Summary [address] [address] ED Clinical Summary Person Information Name: ROLA AGUILAR Elena/[facility] Age: 29 Years : 1995 Sex: Female Language: Honduran PCP: NONE, XXXX Marital Status: Single Visit Id: Visit Reason: Nausea; Abdominal pain; post op complication - abd pain Speciality: Acuity: 3 Enc Type: Emergency Med Service: Emergency Arrival: 12/23/2024 12:49:37 Discharge: 12/23/2024 16:03:58 LOS: 000 03:14 Checkin: 12/23/2024 12:49:37 Checkout: 12/23/2024 16:03:58 Dispo Type: Home (Routine DC) EVENTS: Event Name Event Status Request Date/Time Start Date/Time Complete Date/Time Arrive Complete 12/23/2024 12:49:37 12/23/2024 12:49:37 12/23/2024 12:49:37 Document Home Meds Request 12/23/2024 12:49:37 Triage Complete 12/23/2024 12:49:37 12/23/2024 13:00:01 12/23/2024 13:00:01 Bed Assign Complete 12/23/2024 12:52:21 12/23/2024 12:52:21 12/23/2024 12:52:21 Dr Exam Complete 12/23/2024 12:52:21 12/23/2024 13:03:27 12/23/2024 13:03:27 RN Exam Request 12/23/2024 12:52:21 Registration Complete 12/23/2024 12:54:32 12/23/2024 12:54:32 12/23/2024 12:54:32 Reg Complete Request 12/23/2024 12:54:32 Reg Bed Request Complete 12/23/2024 12:54:32 12/23/2024 12:54:32 12/23/2024 12:54:32 30 Day Return Request 12/23/2024 13:00:02 Registration Complete 12/23/2024 13:03:27 12/23/2024 13:13:39 12/23/2024 13:13:39 Dr Exam Complete 12/23/2024 13:03:52 12/23/2024 13:03:52 12/23/2024 13:03:52 CT Complete 12/23/2024 13:22:32 12/23/2024 14:00:38 12/23/2024 14:26:18 Pending Labs Complete 12/23/2024 13:22:32 12/23/2024 14:50:28 Lab Complete 12/23/2024 13:22:32 12/23/2024 14:50:28 Meds Admin Complete 12/23/2024 13:22:32 12/23/2024 14:11:07 Meds Admin Complete 12/23/2024 13:22:51 12/23/2024 14:11:07 Pending Labs Complete 12/23/2024 13:23:17 12/23/2024 14:08:39 Lab Complete 12/23/2024 13:23:17 12/23/2024 14:08:40 Urine Collect Complete 12/23/2024 13:23:17 12/23/2024 14:08:40 Meds Admin Complete 12/23/2024 13:23:52 12/23/2024 14:11:08 Pending Labs Complete 12/23/2024 13:51:32 12/23/2024 13:51:32 12/23/2024 14:18:47 Lab Complete 12/23/2024 13:51:32 12/23/2024 13:51:32 12/23/2024 14:18:47 Pending Labs Complete 12/23/2024 13:53:25 12/23/2024 13:53:25 12/23/2024 13:53:26 Pending Labs Inlab 12/23/2024 14:12:44 12/23/2024 14:12:44 Lab Inlab 12/23/2024 14:12:44 12/23/2024 14:12:44 Discharge Complete 12/23/2024 15:34:38 12/23/2024 16:04:03 12/23/2024 16:04:03 Transfer Complete 12/23/2024 16:04:03 12/23/2024 16:04:03 12/23/2024 16:04:03 ADDRESS: [address] [place] [id number] PHYS DOC NOTES: MEDICAL INFORMATION: Prescriptions Given: New Medications [facility]/pharmacy #[id number], [address] [place], [place] [id number], [phone] oxycodone (oxyCODONE 5 mg Cap) 1 Capsules By Mouth every 6 hours as needed for pain. Refills: 0. Medications to Continue Taking That Have Changed [facility]/pharmacy #[id number], [address] [place], [place] [id number], [phone] START: promethazine (promethazine 25 mg Tab) 1 Tablets By Mouth every 4 hours. Refills: 0. Other Medications START: promethazine (promethazine 25 mg Tab) 1 Tablets By Mouth every 6 hours as needed as needed for nausea/vomiting. Refills: 0. Medications to Continue with No Changes Other Medications busPIRone (busPIRone 10 mg Tab) 1 Tablets By Mouth 2 times a day. levetiracetam (Keppra 250 mg Tab) 2 Tablets By Mouth 2 times a day. Refills: 1. magnesium glycinate (magnesium glycinate 100 mg oral capsule) 2 Capsules By Mouth every day. Refills: 0. Misc Prescription (amoxicillin-clavulan ate (Augmentin 875 mg oral tablet)) 1 Tablets every 12 hours. ondansetron (ondansetron 4 mg Dis Tab) 1 Tablets By Mouth every 6 hours. Refills: 0. ondansetron (Zofran ODT 4 mg Tab-Dis) 1 Tablets By Mouth every 6 hours. Refills: 0. PATIENT EDUCATION INFORMATION: Instructions: Anorectal Abscess; Crohn's Disease Follow up: With: Address: When: SRAVANI KAYE [address] [place], [place] [id number] In 3 days 12/26/2024 With: Address: When: SH[address] [place] [address] Business (1) In 3 days 12/26/2024 DIAGNOSIS: IBD (inflammatory bowel disease); Perianal abscess Normal [facility] ED Note-Physicianon 12-24-19 ED Note-Physician ED Note-Physician Basic Information Time Seen: Gadiel Vega PA-C 12/23/2024 13:03 Chief Complaint pt presents with c/o abdominal pain. states she had abdominal procedure done at [facility] on saturday. pt states they found 3 fistulas and had drain placed. pt states dr. pérez diredted her to ED History of Present Illness Patient is a 29-year-old female with a history of anxiety, bipolar disorder, seizures, tachycardia, pressure ulcers, and Crohn's disease status post ileostomy who presents to the ED for evaluation of her continued abdominal pain with nausea. Patient states that she was just seen here in the ED a week ago and transferred to [facility] due to a Viet anal abscess. Upon having surgery with exploratory laparotomy they were able to find 3 fistulas and she had a drain placed. She states that they did not find any abscess at that time. She was scheduled to follow-up with Dr. Pérez our diet tech here at [facility] who saw and evaluated her in the office and recommend that she come to the ED because she is having increased pain out of proportion of what she has at baseline after the procedure. Patient states that she felt relatively better for about 1 to 2 days after the procedure but she started to have worsening pain over the last 48 to 72 hours. Has continued chronic nausea. She is scheduled to have proctocolectomy on 01/08/2025 with her colorectal surgeon through [facility]. She attempted to get a hold of her colorectal surgeon but they are out of town on vacation. She is scheduled this 12/25/2024 to see an IBD specialist in [place]. She denies any fevers, body aches, chills. She does note blood in the stool. Review of Systems No other aggravating or relieving factors no other associated symptoms no other prior treatments or complaints. Family: Reviewed and noncontributory Social: lives at home Review of systems negative unless otherwise specified in the HPI. Physical Exam Vitals & Measurements T: 36.7 ???C(Oral) HR: 122(Peripheral) RR: 20 BP: 122/83 SpO2: 100% HT: 167 cm WT: 53.2 kg BMI: 19.08 General: The patient appears in significant pain holding her abdomen throughout the exam. Skin: Warm, dry, no pallor noted. Head: Normocephalic, atraumatic Neck: No JVD Eye: PERRLA, EOMI ENT: Moist mucus membranes Cardiovascular: Regular rate and rhythm. Normal peripheral perfusion Respiratory: CTA bilaterally. No respiratory distress no accessory muscle use no obvious audible wheezing Chest Wall: no deformity Musculoskeletal: normal ROM, no deformity, no swelling GI: Soft no obvious distention. No rebound or rigidity. No guarding. Diffuse moderate to severe tenderness to palpation with ileostomy bag noted in place. No surrounding erythema or edema. No drainage or discharge. Neurological: A&O moves all extremities equal strength and symmetry Psychiatric: Cooperative and appropriate Medical Decision Making Patient is a 29-year-old female with PMH of anxiety, bipolar disorder, seizures, tachycardia, pressure ulcers, Crohn's disease status post ileostomy placed who presents to the ED for evaluation of her continued abdominal pain with nausea. She just transferred last week to [facility] due to a perianal abscess and had an exploratory surgery in which they found 3 fistulas and had a drain placed but they did not find any abscess at that time. There was concern about possible sepsis at that time as well. She was seen and evaluated by Dr. Pérez our diet tech at [facility] who saw her in the office today and recommended she come to the ED because she is having increasing pain on proportion to her baseline status post the procedure. She is scheduled for proctocolectomy on 01/08/2025 with her colorectal surgeon through pain clinic and is scheduled to see an IBD specialist at [facility] on 12/25/2024. On exam patient is afebrile and does appear in significant pain holding her abdomen throughout the exam. She is tachycardic but no hypotension. She has diffuse moderate to severe tenderness to palpation with ileostomy bag noted in place. No surrounding erythema or edema. No drainage or discharge. Given patient just had an abscess formation found on CT a week ago and had another procedure on Saturday we will obtain labs as well as repeat CT scan. Labs are stable in comparison to previous with normal WBC and lactic acid at 9.[address] of the abdomen and pelvis demonstrates her from parenteral wall thickening of the colon with mild pericolonic fat stranding unchanged circumferential wall thickening of terminal and distal ileum and ileocecal valve to loop colostomy, unchanged. Findings consistent with IBD. Left perianal fissure/abscess with interval placement of perianal drainage catheter as discussed. Given stable labs and stable CT patient will be discharged home. She is already on Augmentin and still has continued 2 days of this with coverage for the Perianal fissure/absce (more content not included)... Normal [facility] Comment on above: Result Comment: Elec tronically Signed By: Gadiel Vega PA-C\.br\Date and Time Signed: 12/23/24 15:50 EDT\.br\Electronically Co-Signed By: Harry Devine DO\.br\Date and Time Co-Signed: 12/23/24 18:48 EDT ED Patient Summaryon 025 ED Patient Summary ED Patient Summary [place] [address] Patient Discharge Instructions Person Information Name: ROLA AGUILAR Age: 29 Years Arrival Date: 12/23/2024 12:49:37 Discharge Diagnosis: IBD (inflammatory bowel disease); Perianal abscess Primary Care Physician: NONE, XXXX Provider Information Primary Provider: Harry Devine DO Advanced Implementation Lead:Gadiel Vega PA-C The exam and treatment you received in the Emergency Department were for an urgent problem and are not intended as complete care. It is important that you follow up with a doctor, nurse practitioner, or physician???s back office medical assistant for ongoing care. If your symptoms become worse or you do not improve as expected and you are unable to reach your usual health care provider, you should return to the Emergency Department. We are available 24 hours a day. ROLA AGUILAR has been given the following list of patient education materials, prescriptions and follow-up instructions: Follow-up Instructions: With: Address: When: SRAVANI LOPEZPOTT [address] [place], [place] [id number] In 3 days 12/26/2024 With: Address: When: SHAQ [place]AKKAR [address] [place] [address] [facility] () In 3 days 12/26/2024 In the event that this physician does not participate in your insurance network, please consult with your insurance company to find a nearby participating provider. Patient Education Materials: Anorectal Abscess; Crohn's Disease A MESSAGE TO ALL PATIENTS REGARDING OPIOIDS PRESCRIPTION OPIOIDS: WHAT YOU NEED TO KNOW Prescription opioids can be used to help relieve gpcwdnbo-yj-msfmbh pain and are often prescribed following a [...] guidance from the Food and Drug Administration (www.fda.gov/Drugs/Re sourcesForYou). ??? Visit www.cdc.gov/drugoverd ose to learn about the (more content not included)... Normal [facility] Extra Blueon 12-23-2024 Tube Collected Plasma Yes Invalid Interpretation Code [facility] Comment on above: Performed By: #### 1 [id number] #### [facility] [address] [place] [address] Gastroenterology Office/Clin ic Noteon 12-23-2024 Gastroenterology Office/Clinic Note Gastroenterology Office/Clinic Note Chief Complaint Crohn's HPI Staff New patient is a(n) 29 year old female who presents today for a f/u from [facility] 10/02/24 for nausea, vomiting and diarrhea. Appt r/s from 11/11/24. Presented to ED via EMS with c/o severe abdominal pain, n/v/d x3 days. Intermittently fights with Crohn's flare ups. Difficult for her to keep anything down. Has known ileostomy bag but also produces stool per the rectum and has had 2 bloody bowel movements over the last couple of days. Was given Zofran and Phenergan in ED with improvement. Has Suboxone at home for pain. D/C with Zofran and Phenergan scripts. Has had multiple ED trips since with same complaints. Last ED note from 12/16/24 states she is scheudled for a proctocolectomy on January 08 at [facility] with colorectal surgeon. Patient NOT currently receiving Entyvio pen 108 mg/0.68 ml pen subq every other week. Serviced through [facility]. 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 Seen at [facility] 08/2018 for creation of loop ileostomy. Any blood thinners? Any GLP-1 agonists? Last GI consult 02/25/24 w/Dr. Heriberto Humphries @ [facility]: PLAN 28-year-old female presents for hospital follow-up of small and large bowel Crohn's disease complicated by stricture as well as perianal fistula. We will restart her prednisone 20 mg daily. We also discussed several biologic options, although the data for fistula is somewhat limited since she has failed Humira with antibodies. She would like to avoid Remicade if possible. Because of this, we will start Entyvio and she would like to try to get the pen option approved. We will submit to insurance company for approval. I will see her back after she has started the loading infusions and we will continue her prednisone until she is stable at that time. She was encouraged to call with any questions or concerns. Colorectal surgery op note 07/20/24 w/Dr. Thakkar: FINDINGS: - Large abscess cavity in the ischiorectal space with fistulization to the rectum at the 7-[address] abd/pelvis 10/02/24: IMPRESSION: NO ACUTE INTRA-ABDOMINAL PROCESS IDENTIFIED. Laboratory Results CBC CMP PT PTT Basophil Absolute: 0 E9/L (10/02/24) A/G Ratio: 0.6 Low (10/02/24) INR: 1.1 (03/08/24) PTT: 30.3 second(s) (03/08/24) Basophil Auto: 0.2 % (10/02/24) AGAP: 16 mEq/L (10/02/24) PT: 12.3 second(s) (03/08/24) Eos Absolute: 0 E9/L (10/02/24) Albumin Lvl: 2.5 gm/dL Low (10/02/24) Eos Auto: 0.3 % (10/02/24) Alk Phos: 185 Int._Unit/L High (10/02/24) Hct: 39.5 % (10/02/24) ALT: 16 Int._Unit/L (10/02/24) HGB: 13.8 gm/dL (10/02/24) AST: 26 Int._Unit/L (10/02/24) Lymph Absolute: 2.5 E9/L (10/02/24) Bili Total: 0.6 mg/dL (10/02/24) Lymph Auto: 19.4 % (10/02/24) BUN: 8 mg/dL (10/02/24) MCH: 28.7 pg (10/02/24) BUN/Creat Ratio: 11 (10/02/24) MCHC: 34.9 gm/dL (10/02/24) Calcium Lvl: 8.1 mg/dL Low (10/02/24) MCV: 82 fL (10/02/24) Chloride: 90 mmol/L Low (10/02/24) Colbert Absolute: 1 E9/L (10/02/24) CO2: 29 mmol/L (10/02/24) Colbert Auto: 7.8 % (10/02/24) Creatinine: 0.7 mg/dL (10/02/24) MPV: 6.7 fL (10/02/24) Globulin: 4.4 gm/dL High (10/02/24) Neutro Absolute: 9.4 E9/L High (10/02/24) Glucose Lvl: 93 mg/dL (10/02/24) Neutro Auto: 72.3 % (10/02/24) Potassium Lvl: 3.5 mmol/L (10/02/24) Platelet: 825 E9/L High (10/02/24) Sodium Lvl: 131 mmol/L Low (10/02/24) RBC: 4.8 E12/L (10/02/24) Total Protein: 6.9 gm/dL (10/02/24) RDW: 16 % High (10/02/24) WBC: 13 E9/L High (10/02/24) Liver Studies Ferritin Lvl: 288 ng/mL (09/28/16) Iron: 52 mcg/dL (09/29/16) TIBC: 202 mcg/dL Low (09/29/16) UA Blood: Negat (03/08/24) UA Amorph Leslie: Present (03/10/23) UA Bacteria: Trace (03/08/24) UA Bili: Negat (03/08/24) UA Clarity: Clear (03/08/24) UA Color: Colorless Abnormal (03/08/24) UA Glucose: Negat (03/08/24) UA Ketones: Negat (03/08/24) UA Leuk Est: 25 Cristela/uL (03/08/24) UA Mucous: Negat (03/08/24) UA Nitrite: Negat (03/08/24) UA pH: 5.5 (03/08/24) UA Protein: Negat (03/08/24) UA RBC: 0-3 (03/08/24) UA Spec Desc: Clean Catch (03/08/24) UA Spec Grav: 1.007 (03/08/24) UA Squam Epithelial: 0-2 (03/08/24) UA Urobilinogen: Negat (03/08/24) UA WBC: 0-5 (03/08/24) Labs 01/18/24 @ [facility]: HCV Ab Ser Ql Negative HBV core IgM Ser Ql Negative HAV IgM Ser Ql Negative HBV surface Ab Ser Ql Negative HBV surface Ab Ser-aCnc <8.00 TB NIL 0.02 TB1 AG MINUS NIL 0.00 TB2 AG MINUS NIL 0.00 M TB tuberc IFN-g Bld Ql Negative MITOGEN MINUS NIL 5.93 History of Present Illness Reviewed HPI collected by staff Review of Systems PHQ Score Initial Depression Screen Score: 0 SCORE All systems reviewed, negative; Except for above Physical Exam Vitals & Measurements HR: 121(Peripheral) BP: 104/77 HT: 167 cm HT: 66 in WT: 120.593 lb WT: 54.7 kg (more content not included)... Normal [facility] Comment on above: Result Comment: Elec tronically Signed By: Benton GILES, Ja Marques\.br\Date and Time Signed: 12/23/24 10:52 EDT\.br\Electronically Co-Signed By: Sravani Sen MA\.br\Date and Time Co-Signed: 12/23/24 10:48 EDT HEMATOLOGYOrdered By: SYSTEM SYSTEM on 12-23-2024 Basophils/100 WBC (Bld) 0.3 % Normal 0.0 - 2.0 % Remisol Heme Basophils/Leukocytes Auto (Bld) [Pure # fraction] 0.0 E9/L Normal 0.0 - 0.2 E9/L Remisol Heme Eosinophils (Bld) [#/Vol] 0.0 E9/L Normal 0.0 - 0.5 E9/L Remisol Heme Eosinophils/100 WBC (Bld) 0.5 % Normal 0.0 - 8.0 % Remisol Heme Erythrocyte distribution width (RBC) [Ratio] 17.0 % High 10.9 - 14.2 % [facility] Hematocrit (Bld) [Volume fraction] 30.3 % Low 34.0 - 46.0 % [facility] Hemoglobin (Bld) [Mass/Vol] 9.9 g/dL Low 12.0 - 16.0 gm/dL [facility] Lymphocytes (Bld) [#/Vol] 1.1 E9/L Normal 1.0 - 4.0 E9/L [facility] Lymphocytes/100 WBC (Bld) 10.6 % Low 14.0 - 50.0 % [facility] MCH (RBC) [Entitic mass] 29.7 pg Normal 27.0 - 34.0 pg [facility] MCHC (RBC) [Mass/Vol] 32.7 g/dL Normal 31.4 - 36.0 gm/dL [facility] MCV (RBC) [Entitic vol] 90.8 fL Normal 80.0 - 100.0 fL [facility] Monocytes (Bld) [#/Vol] 0.6 E9/L Normal 0.2 - 1.0 E9/L [facility] Monocytes/100 WBC (Bld) 6.4 % Normal 4.0 - 14.0 % [facility] Neutrophils (Bld) [#/Vol] 8.1 E9/L High 2.0 - 7.5 E9/L [facility] Neutrophils/100 WBC (Bld) 82.2 % High 36.0 - 75.0 % [facility] Platelet 695.0 E9/L High 150.0 - 500.0 E9/L [facility] Platelet mean volume (Bld) [Entitic vol] 6.5 fL Normal 6.4 - 10.8 fL [facility] RBC (Bld) [#/Vol] 3.3 E12/L Low 4.3 - 5.9 E12/L [facility] WBC corrected for nucl RBC Auto (Bld) [#/Vol] 9.9 E9/L Normal 4.0 - 11.0 E9/L [facility] Comment on above: Result Comment: Cele pheral smear review performed. Hep Func Panelon 12-23-2024 Albumin [Mass/Vol] 2.5 g/dL Low 3.3-5.0 [facility] Comment on above: Performed By: #### 2 [id number] #### [facility] [address] [place] [address] Albumin/Globulin (S) [Mass conc ratio] 0.7 Low 1.1-2.2 [facility] Comment on above: Performed By: #### 2 246249 #### [facility] [address] [place] [address] ALP [Catalytic activity/Vol] 169 Int._Unit/L High 21-98 [facility] Comment on above: Performed By: #### 2 [id number] #### [facility] [address] [place] [address] ALT No additional P-5'-P [Catalytic activity/Vol] 11 Int._Unit/L Normal 6-46 [facility] Comment on above: Performed By: #### 2 [id number] #### [facility] [address] [place] [address] AST [Catalytic activity/Vol] 14 Int._Unit/L Normal 5-43 [facility] Comment on above: Performed By: #### 2 [id number] #### [facility] [address] [place] [address] Bilirubin [Mass/Vol] 0.2 mg/dL Normal 0.0-1.[address] [facility] Comment on above: Performed By: #### 2 110068 #### [facility] [address] [place] [address] Bilirubin.direct [Mass/Vol] 0.1 mg/dL Normal 0.0-0.4 [facility] Comment on above: Performed By: #### 2 [id number] #### [facility] [address] [place] [address] Bilirubin.indirect [Mass or moles/Vol] 0.1 mg/dL Normal 0.1-0.9 [facility] Comment on above: Performed By: #### 2 122307 #### [facility] [address] [place] [address] Globulin (S) [Mass/Vol] 3.7 g/dL Normal 1.4-4.0 [facility] Comment on above: Performed By: #### 2 162020 #### [facility] [address] [place] [address] Protein [Mass/Vol] 6.2 g/dL Normal 6.0-7.8 [facility] Comment on above: Performed By: #### 2 [id number] #### [facility] [address] [place] [address] Lactic Acidon 12-23-2024 Lactic Acid Lvl 1.1 mmol/L Normal 0.5-2.2 [facility] Comment on above: Performed By: #### 2 636578 #### [facility] [address] [place] [address] Lipase Levelon 12-23-2024 Lipase [Catalytic activity/Vol] 30 U/L Normal 13-58 [facility] Comment on above: Performed By: #### 2 847335 #### [facility] [address] [place] [address] SEROLOGYOrdered By: Loni Manley on 12-23-2024 HCG.beta subunit (U) [Moles/Vol] Negative Normal [facility] Man Sero U BetaHcg Qualon 12-23-2024 HCG.beta subunit (U) [Moles/Vol] Negative Normal [facility] Comment on above: Performed By: #### 2 [id number] #### [facility] [address] [place] [address] UA with Cult Rflxon 12-24-19 25 Bilirubin Ql (U) Negative Normal Negative [facility] Comment on above: Performed By: #### 4 [id number] #### [facility] [address] [place] [address] Clarity (U) Clear Normal Clear [facility] Comment on above: Performed By: #### 4 [id number] #### [facility] [address] [place] [address] Color (U) Yellow Normal Yellow [facility] Comment on above: Result Comment: Micr oscopic readings are only performed on those samples that meet specific criteria set forth by [facility]. Performed By: #### 4 [id number] #### [facility] [address] [place] [address] Glucose Ql (U) Negative Normal Negative [facility] Comment on above: Performed By: #### 4 [id number] #### [facility] [address] [place] [address] Hemoglobin Auto test strip (U) [Mass/Vol] Negative Normal Negative [facility] Comment on above: Performed By: #### 4 [id number] #### [facility] [address] [place] [address] Ketones Auto test strip Ql (U) Negative Normal Negative [facility] Comment on above: Performed By: #### 4 [id number] #### [facility] [address] [place] [address] Leukocyte esterase Auto test strip Ql (U) 75 Cristela/uL Abnormal Negative [facility] Comment on above: Performed By: #### 4 [id number] #### [facility] [address] [place] [address] Mucus Auto Ql (U) Trace Normal Negative [facility] Comment on above: Performed By: #### 4 [id number] #### [facility] [address] [place] [address] Nitrite Auto test strip Ql (U) Negative Normal Negative [facility] Comment on above: Performed By: #### 4 [id number] #### [facility] [address] [place] [address] pH (U) 6.0 [pH] Invalid Interpretation Code 5.0-9.0 [facility] Comment on above: Performed By: #### 4 [id number] #### [facility] [address] [place] [address] Protein Ql (U) Trace Abnormal Negative [facility] Comment on above: Performed By: #### 4 [id number] #### [facility] [address] [place] [address] Specific gravity (U) [Rel density] 1.032 Invalid Interpretation Code 1.005-1.030 [facility] Comment on above: Performed By: #### 4 [id number] #### [facility] [address] [place] [address] Urobilinogen (U) [Mass/Vol] Negative Normal Negative [facility] Comment on above: Performed By: #### 4 [id number] #### [facility] [address] [place] [address] WBC Auto (Urine sed) [#/Area] 0-5 Normal 0-5 [facility] Comment on above: Performed By: #### 4 [id number] #### [facility] [address] [place] [address] Type of Urine collection method Clean Catch Normal [facility] Comment on above: Performed By: #### 4 [id number] #### [facility] [address] [place] [address] URINALYSISOrdered By: SYSTEM SYSTEM on 12-23-2024 Bilirubin Ql (U) Negative Normal Negativemg/dL [facility] UA Auto SS Clarity (U) Clear (12/23/24 1:55 PM) Normal Clear [facility] UA Auto SS Color (U) Yellow 1 (12/23/24 1:55 PM) Normal Yellow [facility] UA Auto SS Comment on above: Interpretive Data: M icroscopic readings are only performed on those samples that meet specific criteria set forth by [facility]. Glucose Ql (U) Negative Normal Negativemg/dL [facility] [...] UA Auto SS pH (U) 6.0 *NA* (12/23/24 1:55 PM) Invalid Interpretation Code 5.0 - 9.0 [facility] UA Auto SS Protein Ql (U) Trace mg/dL Invalid Interpretation Code Negativemg/dL [facility] UA Auto SS Specific gravity (U) [Rel density] 1.032 *NA* (12/23/24 1:55 PM) Invalid Interpretation Code 1.005 - 1.030 [facility] UA Auto SS Urobilinogen (U) [Mass/Vol] Negative Normal Negativemg/dL [facility] UA Auto SS WBC Auto (Urine sed) [#/Area] 0-5 graded/HPF Normal 0-5graded/HPF [facility] UA Auto SS URINALYSISOrdered By: Gadiel Vega on 12-23-2024 UA Spec Desc Clean Catch (12/23/24 1:55 PM) Normal [facility] UA Auto SS eGFRon 12-23-2024 eGFR 130 mL/min/1.73 m2 Normal >=59 [facility] Comment on above: Performed By: #### 1 [id number] #### [facility] [address] [place] [address] C Urineon 12-19-2024 Bacteria identified Cx Nom (U) Microbiology PROCEDURE: Urine Culture [R1] SOURCE: U CleanCatch BODY SITE: COLLECTED DATE/TIME: 12/17/2024 12:24 EDT RECEIVED DATE/TIME: 12/17/2024 14:16 EDT START DATE/TIME: 12/17/2024 14:17 EDT FREE TEXT SOURCE: Garcia GILES, Heriberto Cervantes MD, Heriberto FINAL REPORTS Final Report [] Verified Date/Time: 12/19/2024 09:34 EDT 500 cfu/ml Mixed skin contaminants Performing Locations R1: This test was performed at: [facility], [address] [place] [address], [phone] , , [place] Comment on above: Performed By: #### 2 [id number] #### [facility] [address] [place] [address] ANES POSTPROC EVALon 025 ANES POSTPROC EVAL HNO ID: [id number] Author: AYANA FELIX DO Service: Anesthesiology Author Type: Anesthesiologist Type: Anesthesia Postprocedure Evaluation Filed: 12/18/2024 14:02 Note Text: POST ANESTHESIA EVALUATION NOTE : 1995 Procedure Summary Date: 12/18/24 Room / Location: OR06 / OR Anesthesia Start: 1129 Anesthesia Stop: 1222 Procedure: EXAM UNDER ANESTHESIA RECTAL (Anus) Diagnosis: Crohn's colitis, unspecified complication (HCC) (Crohn's colitis, unspecified complication (HCC) [K50.119]) Surgeons: Komal Hernandez MD Responsible Provider: Ayana Felix DO Anesthesia Type: general ASA Status: 3 Anesthesia Type: general Airway Type: ETT Last Vitals Vitals Value Taken Time BP 100/52 12/18/24 1323 Temp 36.3 ?C (97.3 ?F) 12/18/24 1253 HR SpO2 87 12/18/24 1257 Resp 22 12/18/24 1256 SpO2 100 % 12/18/24 1257 Vitals shown include unfiled device data. Post Anesthesia Patient Status Patient Evaluation: PACU. PACU/ICU Patient Condition: stable. Anticipated Disposition: inpatient floor planned admission. Neurological [...] of care. Anesthesia Observations No Documentation SIGNATURE: Ayana Felix DO PATIENT NAME: Rola Aguilar DATE: December 18, 2024 TIME: 2:02 PM CSN: [id number] [facility] ANES PRE-OPon 12-18-2024 ANES PRE-OP HNO ID: [id number] Author: AYANA FELIX DO Service: Anesthesiology Author Type: Anesthesiologist Type: Anesthesia Preprocedure Evaluation Filed: 12/18/2024 11:47 Note Text: ANESTHESIOLOGY DAY OF SURGERY NOTE : 1995 Procedure Information Anesthesia Start Date/Time: 12/18/24 1129 Procedure: EXAM UNDER ANESTHESIA RECTAL (Anus) Location: OR / OR Surgeons: Komal Hernandez MD Estimated body mass index is 18.09 kg/m? as calculated from the following: Height as of this encounter: 167.6 cm (5' 6 ). Weight as of this encounter: 50.8 kg (112 lb 1.7 oz). Most recent hematocrit and potassium results: Hematocrit 28.1 12/18/2024 Potassium 3.6 12/18/2024 Relevant Problems No relevant active problems I - PHYSICAL EVALUATION AIRWAY Patient intubated: No. Tracheostomy tube not present TM distance: >3 FB. Neck ROM: full ROM without neurological symptoms. Mouth opening: adequate. Short neck: no. Thick neck: no DENTAL Normal dental observations. Dental findings: missing tooth/teeth, poor dentition, broken tooth and chipped. Additional exam findings: no II - ANESTHESIA PLAN ASA Score: 3 Anesthetic Plan: general Airway type: ETT The patient is not a current smoker. NPO Status: adequate Beta Olena Monitoring Plan Monitoring plan: standard ASA. Post Procedure Analgesic Plan Postoperative analgesic plan: multimodal analgesia. Informed Consent Anesthetic risks, benefits, alternatives, personnel and consent discussed: yes. Patient / Responsible Democrat agrees to proceed: yes Patient / Surrogate agrees to blood products: Yes Potential Anesthesia issues that may suggest increased risk of complications or contraindication to planned procedure: none. Vitals Value Taken Time BP 112/78 12/18/24 1114 Pulse 114 12/18/24 1114 Resp 16 12/18/24 1114 Temp 36.7 ?C (98.1 ?F) 12/18/24 1114 SpO2 99 % 12/18/24 1114 Facility-Administered Medications as of 12/18/2024 Medication Dose Route Frequency - [Transfer Hold] potassium chloride 20 mEq oral powder (KLOR-CON) 20 mEq ORAL TID - [COMPLETED] oxyCODONE IR 10 mg tab(s) (ROXICODONE) 10 mg ORAL ONCE - [COMPLETED] promethazine 12.5 mg tab(s) (PHENERGAN) 12.5 mg ORAL Pre-Op Once - [Transfer Hold] heparin 5,000 Units injection 5,000 Units SUBCUTANEOUS q 12 H - [Transfer Hold] NaCl 0.9% iv flush bag 20 mL INTRAVENOUS PRN - [Transfer Hold] lactated ringers iv infusion 75 mL/hr INTRAVENOUS CONTINUOUS - [Transfer Hold] acetaminophen 650 mg tab(s) (TYLENOL) 650 mg ORAL q 4 H PRN - [Transfer Hold] busPIRone 10 mg tab(s) (BUSPAR) 10 mg ORAL TID - [Transfer Hold] levETIRAcetam 500 mg tab(s) (KEPPRA) 500 mg ORAL BID - [Transfer Hold] ondansetron (PF) 4 mg injection (ZOFRAN) 4 mg INTRAVENOUS q 6 H PRN - [Transfer Hold] HYDROmorphone 0.2 mg injection (DILAUDID) 0.2 mg INTRAVENOUS q 4 H PRN - [Transfer Hold] oxyCODONE IR 5 mg tab(s) (ROXICODONE) 5 mg ORAL q 6 H PRN - [Transfer Hold] diphenhydrAMINE 25 mg capsule (BENADRYL) 25 mg ORAL q 6 H PRN - [Transfer Hold] hydrOXYzine HCl 20 mg tab(s) (ATARAX) 20 mg ORAL q 6 H PRN - [Transfer Hold] piperacillin-tazobact am iv piggyback 3.375 g in dextrose (iso-osmotic) 50 mL (ZOSYN) 3.375 g INTRAVENOUS q 6 H Outpatient Medications as of 12/18/2024 Medication Sig - busPIRone (BUSPAR) 10 mg tablet Take 10 mg by mouth three times a day. - levETIRAcetam (KEPPRA) 500 mg tablet Take 500 mg by mouth two times a day. I have interviewed and examined the patient. I have reviewed the medical record and/or the pre-anesthesia evaluation, pertinent labs, and test results. This contains updated information obtained within 48 hours of Surgery/Procedure. SIGNATURE: Ayana Felix DO PATIENT NAME: Rola Aguilar DATE: December 18, 2024 TIME: 11:46 AM CSN: [id number] Normal [facility] Basic metabolic 2000 panelon 12-18-2024 Anion gap [Moles/Vol] 11 mmol/L Normal 8-15 [facility] Comment on above: Order Comment: Speci men Type: BLOOD SPECIMEN Ordering Facility: [facility] Address: [address] [place] [address] Performed By: #### 2 4321-2 #### [facility] CLIA [id number] Order Comment: Speci men Type: BLOOD SPECIMENOrdering Facility: [facility] Address: [address] [place] [address] Performed By: #### 2 4321-2 ####[facility] [id number] [address] [place] Calcium [Mass/Vol] 7.5 mg/dL Low 8.5-10.2 [facility] Comment on above: Order Comment: Speci men Type: BLOOD SPECIMEN Ordering Facility: [facility] Address: [address] [place] [address] Performed By: #### 2 4321-2 #### [facility] CLIA [id number] Order Comment: Speci men Type: BLOOD SPECIMENOrdering Facility: [facility] Address: [address] [place] [address] Performed By: #### 2 4321-2 ####[facility] [id number] [place] [address] [place] Chloride [Moles/Vol] 103 mmol/L Normal 98-107 [facility] Comment on above: Order Comment: Speci men Type: BLOOD SPECIMEN Ordering Facility: [facility] Address: [address] [place] [address] Performed By: #### 2 4321-2 #### [facility] CLIA [id number] [place] [address] [place] Order Comment: Speci men Type: BLOOD SPECIMENOrdering Facility: [facility] Address: [address] [place] [address] Performed By: #### 2 4321-2 ####[facility] [id number] [place] [address] [place] CO2 [Moles/Vol] 23 mmol/L Normal 22-30 [facility] Comment on above: Order Comment: Speci men Type: BLOOD SPECIMEN Ordering Facility: [facility] Address: [address] [place] [address] Performed By: #### 2 4321-2 #### [facility] CLIA [id number] [address] [place] [address] OF [facility] Order Comment: Speci men Type: BLOOD SPECIMENOrdering Facility: [facility] Address: [address] [place] [address] Performed By: #### 2 4321-2 ####[facility] [id number] [place] [address] [place] Creatinine [Mass/Vol] 0.75 mg/dL Normal 0.58-0.96 [facility] Comment on above: Order Comment: Speci men Type: BLOOD SPECIMEN Ordering Facility: [facility] Address: [address] [place] [address] Performed By: #### 2 4321-2 #### [facility] CLIA [id number] Order Comment: Roya del rio Type: BLOOD SPECIMENOrdering Facility: [facility] Address: [address] [place] [address] Performed By: #### 2 4321-2 ####[facility]ORYCLIA [id number] [address] Creatinine and Glomerular filtration rate.predicted panel (S/P/Bld) 111 mL/min/1.73m??? Normal >=60 [facility] Comment on above: Order Comment: Roya [place] rio Type: BLOOD SPECIMEN Ordering Facility: [facility] Address: [address] [place] [address] Result Comment: Alysha mated Glomerular Filtration Rate [...] reflect actual GFR. Performed By: #### 2 4321-2 #### [facility] CLIA [id number] Order Comment: Roya [place] rio Type: BLOOD SPECIMENOrdering Facility: [facility] Address: [address] [place] [address] Performed By: #### 2 4321-2 ####[facility] [id number] [place] [address] [place] Glucose [Mass/Vol] 90 mg/dL Normal 74-99 [facility] Comment on above: Order Comment: Roya eliane Type: BLOOD SPECIMEN Ordering Facility: [facility] Address: [address] [place] [address] Result Comment: The [place] [employer] (ADA) provides guidance for cutoff [...] Standards of Medical Care in Diabetes 2016, [place] [employer]. Diabetes Care. 2016.39(Suppl 1). Performed By: #### 2 4321-2 #### [facility] CLIA [id number] [address] [place] [address] Order Comment: Speci men Type: BLOOD SPECIMENOrdering Facility: [facility] Address: [address] [place] [address] Performed By: #### 2 4321-2 ####[facility] [id number] [place] [address] [place] Potassium [Moles/Vol] 3.6 mmol/L Low 3.7-5.1 [facility] Comment on above: Order Comment: Speci men Type: BLOOD SPECIMEN Ordering Facility: [facility] Address: [address] [place] [address] Performed By: #### 2 4321-2 #### [facility] CLIA [id number] [address] [place] [address] Order Comment: Speci men Type: BLOOD SPECIMENOrdering Facility: [facility] Address: [address] [place] [address] Performed By: #### 2 4321-2 ####[facility]IA [id number] [place] [address] [place] Sodium [Moles/Vol] 137 mmol/L Normal 136-144 [facility] Comment on above: Order Comment: Speci men Type: BLOOD SPECIMEN Ordering Facility: [facility] Address: [address] [place] [address] Performed By: #### 2 4321-2 #### [facility] CLIA [id number] [place] [address] Order Comment: Speci men Type: BLOOD SPECIMENOrdering Facility: [facility] Address: [address] [place] [address] Performed By: #### 2 4321-2 ####[facility] [id number] [place] [address] [place] Urea nitrogen [Mass/Vol] 5 mg/dL Low 7- [facility] Comment on above: Order Comment: Speci men Type: BLOOD SPECIMEN Ordering Facility: [facility] Address: [address] [place] [address] Performed By: #### 2 4321-2 #### [facility] CLIA [id number] [address] [place] [address] Order Comment: Speci men Type: BLOOD SPECIMENOrdering Facility: [facility] Address: [address] [place] [address] Performed By: #### 2 4321-2 ####[facility] [id number] [place] [address] [place] CBC W Auto Differential pane l (Bld)on 12-18-2024 Basophils (Bld) [#/Vol] 0.04 10*3/uL Normal <0.11 [facility] Comment on above: Order Comment: Speci men Type: BLOOD SPECIMEN Ordering Facility: [facility] Address: [address] [place] [address] Performed By: #### 5 7021-8 #### [facility] CLIA [id number] [address] [place] [address] Order Comment: Speci men Type: BLOOD SPECIMENOrdering Facility: [facility] Address: [address] [place] [address] Performed By: #### 5 7021-8 ####[facility] [id number] [address] [place] Basophils/100 WBC (Bld) 0.5 % Normal [facility] Comment on above: Order Comment: Speci men Type: BLOOD SPECIMEN Ordering Facility: [facility] Address: [address] [place] [address] Performed By: #### 5 7021-8 #### [facility] CLIA [id number] Order Comment: Speci men Type: BLOOD SPECIMENOrdering Facility: [facility] Address: [address] [place] [address] Performed By: #### 5 7021-8 ####[facility] [id number] [address] Differential cell count method Nom (Bld) Auto Normal [facility] Comment on above: Order Comment: Speci men Type: BLOOD SPECIMEN Ordering Facility: [facility] Address: [address] [place] [address] Performed By: #### 5 7021-8 #### [facility] CLIA [id number] [address] [place] [address] Order Comment: Speci men Type: BLOOD SPECIMENOrdering Facility: [facility] Address: [address] [place] [address] Performed By: #### 5 7021-8 ####[facility]ATORYCLIA [id number] [place] [address] [place] Eosinophils (Bld) [#/Vol] 0.22 10*3/uL Normal <0.46 [facility] Comment on above: Order Comment: Speci men Type: BLOOD SPECIMEN Ordering Facility: [facility] Address: [address] [place] [address] Performed By: #### 5 7021-8 #### [facility] CLIA [id number] [address] [place] [address] Order Comment: Speci men Type: BLOOD SPECIMENOrdering Facility: [facility] Address: [address] [place] [address] Performed By: #### 5 7021-8 ####[facility] [id number] [address] [place] Eosinophils/100 WBC (Bld) 2.8 % Normal [facility] Comment on above: Order Comment: Speci men Type: BLOOD SPECIMEN Ordering Facility: [facility] Address: [address] [place] [address] Performed By: #### 5 7021-8 #### [facility] CLIA [id number] [address] [place] [address] Order Comment: Speci men Type: BLOOD SPECIMENOrdering Facility: [facility] Address: [address] [place] [address] Performed By: #### 5 7021-8 ####[facility]ATORYCLIA [id number] [address] [place] Erythrocyte distribution width (RBC) [Ratio] 15.5 % High 11.5-15.0 [facility] Comment on above: Order Comment: Speci men Type: BLOOD SPECIMEN Ordering Facility: [facility] Address: [address] [place] [address] Performed By: #### 5 7021-8 #### [facility] CLIA [id number] [address] [place] [address] Order Comment: Speci men Type: BLOOD SPECIMENOrdering Facility: [facility] Address: [address] [place] [address] Performed By: #### 5 7021-8 ####[facility]ORYCLIA [id number] [address] [place] Hematocrit (Bld) [Volume fraction] 28.1 % Low 36.0-46.0 [facility] Comment on above: Order Comment: Speci men Type: BLOOD SPECIMEN Ordering Facility: [facility] Address: [address] [place] [address] Performed By: #### 5 7021-8 #### [facility] CLIA [id number] [address] [place] [address] Order Comment: Speci men Type: BLOOD SPECIMENOrdering Facility: [facility] Address: [address] [place] [address] Performed By: #### 5 7021-8 ####[facility]ORATORYCLIA [id number] [place] [address] [place] Hemoglobin (Bld) [Mass/Vol] 8.6 g/dL Low 11.5-15.5 [facility] Comment on above: Order Comment: Speci men Type: BLOOD SPECIMEN Ordering Facility: [facility] Address: [address] [place] [address] Performed By: #### 5 7021-8 #### [facility] CLIA [id number] Order Comment: Speci men Type: BLOOD SPECIMENOrdering Facility: [facility] Address: [address] [place] [address] Performed By: #### 5 7021-8 ####[facility]ATORYCLIA [id number] [address] Immature granulocytes (Bld) [#/Vol] 0.05 10*3/uL Normal <0.10 [facility] Comment on above: Order Comment: Speci men Type: BLOOD SPECIMEN Ordering Facility: [facility] Address: [address] [place] [address] Performed By: #### 5 7021-8 #### [facility] CLIA [id number] [address] [place] [address] Order Comment: Speci men Type: BLOOD SPECIMENOrdering Facility: [facility] Address: [address] [place] [address] Performed By: #### 5 7021-8 ####[facility]ATORYCLIA [id number] [address] Immature granulocytes/100 WBC (Bld) 0.6 % Normal [facility] Comment on above: Order Comment: Speci men Type: BLOOD SPECIMEN Ordering Facility: [facility] Address: [address] [place] [address] Performed By: #### 5 7021-8 #### [facility] CLIA [id number] [address] [place] [address] Order Comment: Speci men Type: BLOOD SPECIMENOrdering Facility: [facility] Address: [address] [place] [address] Performed By: #### 5 7021-8 ####[facility] LABORATORYCLIA [id number] [place] [address] [place] Lymphocytes (Bld) [#/Vol] 1.05 10*3/uL Normal 1.00-4.00 [facility] Comment on above: Order Comment: Speci men Type: BLOOD SPECIMEN Ordering Facility: [facility] Address: [address] [place] [address] Performed By: #### 5 7021-8 #### [facility] CLIA [id number] [address] [place] [address] Order Comment: Speci men Type: BLOOD SPECIMENOrdering Facility: [facility] Address: [address] [place] [address] Performed By: #### 5 7021-8 ####[facility]ORYCLIA [id number] [address] Lymphocytes/100 WBC (Bld) 13.5 % Normal [facility] Comment on above: Order Comment: Speci men Type: BLOOD SPECIMEN Ordering Facility: [facility] Address: [address] [place] [address] Performed By: #### 5 7021-8 #### [facility] CLIA [id number] [address] [place] [address] Order Comment: Speci men Type: BLOOD SPECIMENOrdering Facility: [facility] Address: [address] [place] [address] Performed By: #### 5 7021-8 ####[facility]ORYCLIA [id number] [address] MCH (RBC) [Entitic mass] 28.6 pg Normal 26.0-34.0 [facility] Comment on above: Order Comment: Speci men Type: BLOOD SPECIMEN Ordering Facility: [facility] Address: [address] [place] [address] Performed By: #### 5 7021-8 #### [facility] CLIA [id number] [address] [place] [address] Order Comment: Speci men Type: BLOOD SPECIMENOrdering Facility: [facility] Address: [address] [place] [address] Performed By: #### 5 7021-8 ####[facility]ATORYCLIA [id number] [place] [address] [place] MCHC (RBC) [Mass/Vol] 30.6 g/dL Normal 30.5-36.0 [facility] Comment on above: Order Comment: Speci men Type: BLOOD SPECIMEN Ordering Facility: [facility] Address: [address] [place] [address] Performed By: #### 5 7021-8 #### [facility] CLIA [id number] [address] [place] [address] Order Comment: Speci men Type: BLOOD SPECIMENOrdering Facility: [facility] Address: [address] [place] [address] Performed By: #### 5 7021-8 ####[facility]ORATORYCLIA [id number] [address] [place] MCV (RBC) [Entitic vol] 93.4 fL Normal 80.0-100.0 [facility] Comment on above: Order Comment: Speci men Type: BLOOD SPECIMEN Ordering Facility: [facility] Address: [address] [place] [address] Performed By: #### 5 7021-8 #### [facility] CLIA [id number] [address] [place] [address] Order Comment: Speci men Type: BLOOD SPECIMENOrdering Facility: [facility] Address: [address] [place] [address] Performed By: #### 5 7021-8 ####[facility]ATORYCLIA [id number] [place] [address] [facility] [place] Monocytes (Bld) [#/Vol] 1.05 10*3/uL High <0.87 [facility] Comment on above: Order Comment: Speci men Type: BLOOD SPECIMEN Ordering Facility: [facility] Address: [address] [place] [address] Performed By: #### 5 7021-8 #### [facility] CLIA [id number] [address] [place] [address] Order Comment: Speci men Type: BLOOD SPECIMENOrdering Facility: [facility] Address: [address] [place] [address] Performed By: #### 5 7021-8 ####[facility]ATORYCLIA [id number] [address] [place] [facility] Monocytes/100 WBC (Bld) 13.5 % Normal [facility] Comment on above: Order Comment: Speci men Type: BLOOD SPECIMEN Ordering Facility: [facility] Address: [address] [place] [address] Performed By: #### 5 7021-8 #### [facility] CLIA [id number] [address] [place] [address] Order Comment: Speci men Type: BLOOD SPECIMENOrdering Facility: [facility] Address: [address] [place] [address] Performed By: #### 5 7021-8 ####[facility]ATORYCLIA [id number] [place] [address] [place] Neutrophils (Bld) [#/Vol] 5.37 10*3/uL Normal 1.45-7.50 [facility] Comment on above: Order Comment: Speci men Type: BLOOD SPECIMEN Ordering Facility: [facility] Address: [address] [place] [address] Performed By: #### 5 7021-8 #### [facility] CLIA [id number] [place] [address] Order Comment: Speci men Type: BLOOD SPECIMENOrdering Facility: [facility] Address: [address] [place] [address] Performed By: #### 5 7021-8 ####[facility]ATORYCLIA [id number] [address] [place] Neutrophils/100 WBC (Bld) 69.1 % Normal [facility] Comment on above: Order Comment: Speci men Type: BLOOD SPECIMEN Ordering Facility: [facility] Address: [address] [place] [address] Performed By: #### 5 7021-8 #### [facility] CLIA [id number] [address] [place] [address] Order Comment: Speci men Type: BLOOD SPECIMENOrdering Facility: [facility] Address: [address] [place] [address] Performed By: #### 5 7021-8 ####[facility]ORYCLIA [id number] [address] Nucleated RBC (Bld) [#/Vol] 10*3/uL Normal <0.01 [facility] Comment on above: Order Comment: Speci men Type: BLOOD SPECIMEN Ordering Facility: [facility] Address: [address] [place] [address] Performed By: #### 5 7021-8 #### [facility] CLIA [id number] [address] [place] [address] Order Comment: Speci men Type: BLOOD SPECIMENOrdering Facility: [facility] Address: [address] [place] [address] Performed By: #### 5 7021-8 ####[facility]ORYCLIA [id number] [address] [place] Nucleated RBC/100 WBC (Bld) [Ratio] 0.0 /100 WBC Normal [facility] Comment on above: Order Comment: Speci men Type: BLOOD SPECIMEN Ordering Facility: [facility] Address: [address] [place] [address] Performed By: #### 5 7021-8 #### [facility] CLIA [id number] [address] [place] [address] Order Comment: Speci men Type: BLOOD SPECIMENOrdering Facility: [facility] Address: [address] [place] [address] Performed By: #### 5 7021-8 ####[facility]ORYCLIA [id number] [place] [address] [place] Platelet mean volume (Bld) [Entitic vol] 8.6 fL Low 9.0-12.7 [facility] Comment on above: Order Comment: Speci men Type: BLOOD SPECIMEN Ordering Facility: [facility] Address: [address] [place] [address] Performed By: #### 5 7021-8 #### [facility] CLIA [id number] Order Comment: Speci men Type: BLOOD SPECIMENOrdering Facility: [facility] Address: [address] [place] [address] Performed By: #### 5 7021-8 ####[facility]ORATORYCLIA [id number] [address] [place] Platelets (Bld) [#/Vol] 502 10*3/uL High 150-400 [facility] Comment on above: Order Comment: Speci men Type: BLOOD SPECIMEN Ordering Facility: [facility] Address: [address] [place] [address] Performed By: #### 5 7021-8 #### [facility] CLIA [id number] [address] [place] [address] Order Comment: Speci men Type: BLOOD SPECIMENOrdering Facility: [facility] Address: [address] [place] [address] Performed By: #### 5 7021-8 ####[facility]ATORYCLIA [id number] [address] RBC (Bld) [#/Vol] 3.01 10*6/uL Low 3.90-5.20 [facility] Comment on above: Order Comment: Speci men Type: BLOOD SPECIMEN Ordering Facility: [facility] Address: [address] [place] [address] Performed By: #### 5 7021-8 #### [facility] CLIA [id number] [address] [place] [address] Order Comment: Speci men Type: BLOOD SPECIMENOrdering Facility: [facility] Address: [address] [place] [address] Performed By: #### 5 7021-8 ####[facility]ATORYCLIA [id number] [address] WBC (Bld) [#/Vol] 7.78 10*3/uL Normal 3.70-11.00 [facility] Comment on above: Order Comment: [place] Type: BLOOD SPECIMEN Ordering Facility: [facility] Address: [address] [place] [address] Performed By: #### 5 7021-8 #### [facility] CLIA [id number] Order Comment: Speci men Type: BLOOD SPECIMENOrdering Facility: [facility] Address: [address] [place] [address] Performed By: #### 5 7021-8 ####[facility]ORYCLIA [id number] [address] CNDSon 12-18-2024 CNDS HNO ID: [id number] Author: STEPHANIE CARRION MD Service: Colorectal Author Type: Resident Type: Discharge Summary Filed: 12/18/2024 17:13 Note Text: Attestation signed by Komal Hernandez MD at 12/18/2024 7:18 PM I evaluated the patient and personally participated in the nelson components. I agree with the resident's findings and plan as documented and have discussed the case and management of the patient's care with the resident. Signature: Komal Hernandez MD Service Date: 12/18/2024 COLORECTAL SURGERY DISCHARGE SUMMARY PATIENT NAME: Rola Aguilar ADMISSION DATE: 12/17/2024 DISCHARGE DATE: 12/18/2024 Attending: Komal Hernandez MD Consulting Services: none Reason for Hospitalization: Principal Problem: Crohn's colitis, unspecified complication (HCC) (POA: Yes) Resolved Problems: * No resolved hospital problems. * Operations During Hospitalization: Rectal exam under anesthesia, seton placement Procedures During Hospitalization: No procedures performed Hospital Course: Rola Aguilar is a 29 year old female with h/o Crohn's proctocolitis with known severe perianal disease s/p multiple EUA's (most recently being on 07/17/[address] Thakkar for a large abscess cavity in the ischiorectal space with fistulization to the rectum) and a lap DLI creation in 2018 who is not on any disease modifying medications due to subjective concern for worsening of her perianal disease. Most recently, last saw Dr Thakkar in clinic on 12/04/24 and is scheduled for a total proctocolectomy with permanent ileostomy on 01/08/2025. The remainder of her PMH includes severe anxiety and a newly diagnosed seizure disorder. She presented as a transfer on 12/17/2024 from an OSH with increased anxiety, pain and drainage from her perianal region. She did not have a leukocytosis, although her CRP was elevated to 14.3. On 12/18/2024, the patient was transferred to the OR and a rectal exam under anesthesia was performed by Dr Hernandez. Operative findings included severe perianal Crohn's with purulent drainage from the anal canal with multiple fistulas including a posterior, left posterolateral and a long transsphincteric left anterolateral tract. Because only the left anterolateral tract was draining, a seton was placed there. Extensive discussions about the patient's pain and anxiety were held and the patient denied psychology/psychiatri c consultation this admission. Patient was discharged in a stable condition with outpatient follow up, pain medication, andantibiotics. Transition of Critical Care Issues: Follow up with colorectal surgery Labs and Procedures Pending at Discharge: No pending results. Patient Condition at Discharge: Stable Discharge Disposition: Home with Self Care Discharge Physical Exam: VITAL SIGNS: BP 100/52 Pulse 83 Temp 36.3 ?C (97.3 ?F) (Temporal) Resp 21 Ht 167.6 cm (5' 6 ) Wt 50.8 kg (112 lb 1.7 oz) SpO2 99% BMI 18.09 kg/m? Information Provided to Patient: Patient given copy of discharge instructions Discharge Medications: Medication List START taking these medications acetaminophen 500 mg tablet Commonly known as: TYLENOL Take 2 tablets by mouth every 6 hours. amoxicillin-clavulana te potassium 875-125 mg per tablet Commonly known as: AUGMENTIN Take 1 tablet by mouth every 12 hours for 7 days. oxyCODONE IR 5 mg immediate release tablet Commonly known as: ROXICODONE Take 1 tablet by mouth every 6 hours as needed for up to 7 days. CONTINUE taking these medications busPIRone 10 mg tablet Commonly known as: BUSPAR levETIRAcetam 500 mg tablet Commonly known as: KEPPRA Magnesium 200 mg Tab Where to Get Your Medications These medications were sent to [facility] [address] [place] [address] Hours: Saturday-Saturday: 7am-7pm, Sat: 9am-1pm acetaminophen 500 mg tablet amoxicillin-clavulana te potassium 875-125 mg per tablet oxyCODONE IR 5 mg immediate release tablet Follow-up Appointments: Future Appointments Date Time Provider Department Center 12/25/2024 11:40 AM Marsha Alarcon APRN.[facility] Highest Readmission Risk Score: 19 The 30 day readmissions risk score is derived from an internally validated risk model which evaluates patient level characteristics, utilization history, medication orders and lab results up until the day of discharge. Patients with a score of 40 or above are considered highest risk for readmission. Specific patient level drivers will be listed below The patient's risk for 30-day readmission is determined using the following contributing factors: Predictive Model Details 19% (Moderate) Factor Value Calculated 12/18/2024 05:24 24% Albumin (Avg) 2 [facility] READMISSION RISK M (more content not included)... Normal [facility] OPERATIVE NOon 12-18-2024 OPERATIVE NO HNO ID: [id number] Author: KOMAL HERNANDEZ MD Service: Colorectal Author Type: Physician Type: Operative Report Filed: 12/18/2024 12:26 Note Text: COLON AND RECTAL SURGERY OPERATIVE REPORT PATIENT NAME: Rola Aguilar ADMISSION DATE: 12/17/2024 LOG ID: [id number] SURGERY/PROCEDURE DATE: 12/18/2024 INCISION/PROCEDURE START TIME: 11:57 AM INCISION CLOSE/PROCEDURE END TIME: 12:09 PM AGE: [age] year old SEX: female SURGEON(S)/PROCEDURAL IST(S) AND POLE PEELER(S): Surgeons and Role: * Komal Hernandez MD - Primary No Additional Staff ANESTHESIA: General PREOPERATIVE DIAGNOSIS (ES): Perianal abscess Crohn's disease POSTOPERATIVE DIAGNOSIS (ES): Crohn's disease Perianal fistula Sacral decubitus ulcer stage I NAME OF OPERATION: Rectal exam under anesthesia, seton placement INDICATIONS FOR PROCEDURE: 29 year old female with h/o Crohn's proctocolitis with known severe perianal disease s/p multiple EUA's (most recently being on 07/17/[address] Thakkar for a large abscess cavity in the ischiorectal space with fistulization to the rectum) and a lap DLI creation in 2018 here with increased pain and drainage from anus. R/B/A of EUA was discussed with patient and informed consent obtained. OPERATIVE FINDINGS: Severe perianal crohn's with purulent drainage drom anal canal with multiple fistulas including a posterior, left posterolateral and a long transsphincteric left anterolateral tract. Only left anterolateral tract was draining, so seton placed here. Also has stage 1 decubitus ulcer DESCRIPTION OF PROCEDURE: The patient was brought to the operating room, placed under general anesthesia in supine position, then transferred into the prone marcella-knife position. A surgical time-out was performed. The perineum was prepped and draped in normal sterile fashion and anesthetized with 25 mL of 0.25% Marcaine. A detailed digital rectal exam and anoscopy was performed which revealed Severe perianal crohn's with purulent drainage drom anal canal with multiple fistulas including a posterior, left posterolateral and a long transsphincteric left anterolateral tract. Also has stage 1 decubitus ulcer Only left anterolateral tract was draining, so O decided to place a seton placed here to facilitate drainage.A fistula probe was placed through fistula tract with ease. A silk suture was tied around the slit in the fistula probe and pulled through the fistula. A red vessel loop was secured to the suture and pulled through the fistula. The vessel loop was secured to itself as a seton with several 0 silk ties. The seton was loose and easily spun through the tract. Hemostasis was confirmed. Dressing applied. ESTIMATED BLOOD LOSS: 10cc SPECIMENS: None DRAINS: seton COMPLICATIONS: None INTRAOPERATIVE FLUIDS: See anesthesia record. SPONGE/INSTRUMENT/NEE DLE COUNTS: Correct x2. PRESENCE STATEMENT: I was present for the entire procedure as I have dictated above. Komal Hernandez M.D. Department of Surgery Division of Colon and Rectal Surgery Normal [facility] B-HCG SerPl-aCncon HCG.beta subunit Qn m[IU]/mL Normal <5.0 [facility] Comment on above: Order Comment: Speci men Type: BLOOD SPECIMEN Ordering Facility: [facility] Address: [address] [place] [address] Result Comment: Nega tive Performed By: #### 2 1198-7 #### [facility] CLIA [id number] OF [facility] Order Comment: Speci men Type: BLOOD SPECIMENOrdering Facility: [facility] Address: [address] [place] [address] Performed By: #### 2 1198-7 ####[facility]ATORYCLIA [id number] [address] CBC panel Auto (Bld)on 12-17 Erythrocyte distribution width (RBC) [Ratio] 15.3 % High 11.5-15.0 [facility] Comment on above: Order Comment: Speci men Type: BLOOD SPECIMENOrdering Facility: [facility] Address: [address] [place] [address] Performed By: #### 5 8410-2 ####[facility]ATORYCLIA [id number] [address] Hematocrit (Bld) [Volume fraction] 35.2 % Low 36.0-46.0 [facility] Comment on above: Order Comment: Speci men Type: BLOOD SPECIMENOrdering Facility: [facility] Address: [address] [place] [address] Performed By: #### 5 8410-2 ####[facility] LABORATORYCLIA [id number] [place] [address] [place] Hemoglobin (Bld) [Mass/Vol] 10.4 g/dL Low 11.5-15.5 [facility] Comment on above: Order Comment: Speci men Type: BLOOD SPECIMENOrdering Facility: [facility] Address: [address] [place] [address] Performed By: #### 5 8410-2 ####[facility] LABORATORYCLIA [id number] [place] [address] [place] MCH (RBC) [Entitic mass] 28.1 pg Normal 26.0-34.0 [facility] Comment on above: Order Comment: Speci men Type: BLOOD SPECIMENOrdering Facility: [facility] Address: [address] [place] [address] Performed By: #### 5 8410-2 ####[facility] LABORATORYCLIA [id number] [address] [place] MCHC (RBC) [Mass/Vol] 29.5 g/dL Low 30.5-36.0 [facility] Comment on above: Order Comment: Speci men Type: BLOOD SPECIMENOrdering Facility: [facility] Address: [address] [place] [address] Performed By: #### 5 8410-2 ####[facility] LABORATORYCLIA [id number] [place] [address] [place] MCV (RBC) [Entitic vol] 95.1 fL Normal 80.0-100.0 [facility] Comment on above: Order Comment: Speci men Type: BLOOD SPECIMENOrdering Facility: [facility] Address: [address] [place] [address] Performed By: #### 5 8410-2 ####[facility]ORATORYCLIA [id number] [address] [place] Nucleated RBC (Bld) [#/Vol] 10*3/uL Normal <0.01 [facility] Comment on above: Order Comment: Speci men Type: BLOOD SPECIMENOrdering Facility: [facility] Address: [address] [place] [address] Performed By: #### 5 8410-2 ####[facility] LABORATORYCLIA [id number] [place] [id number] [place] Platelet mean volume (Bld) [Entitic vol] 8.7 fL Low 9.0-12.7 [facility] Comment on above: Order Comment: Speci men Type: BLOOD SPECIMENOrdering Facility: [facility] Address: [address] [place] [address] Performed By: #### 5 8410-2 ####[facility] LABORATORYCLIA [id number] [place] [id number] [place] Platelets (Bld) [#/Vol] 645 10*3/uL High 150-400 [facility] Comment on above: Order Comment: Speci men Type: BLOOD SPECIMENOrdering Facility: [facility] Address: [address] [place] [address] Performed By: #### 5 8410-2 ####[facility]ORYCLIA [id number] [place] [id number] [place] RBC (Bld) [#/Vol] 3.70 10*6/uL Low 3.90-5.20 [facility] Comment on above: Order Comment: Speci men Type: BLOOD SPECIMENOrdering Facility: [facility] Address: [address] [place] [address] Performed By: #### 5 8410-2 ####[facility] LABORATORYCLIA [id number] [place] [id number] [place] WBC (Bld) [#/Vol] 9.25 10*3/uL Normal 3.70-11.00 [facility] Comment on above: Order Comment: Speci men Type: BLOOD SPECIMENOrdering Facility: [facility] Address: [address] [place] [address] Performed By: #### 5 8410-2 ####[facility] LABORATORYCLIA [id number] [address] CHEMISTRYOrdered By: SYSTEM SYSTEM on 12-17-2024 Lactic Acid Lvl 1.5 mmol/L Normal 0.5 - 2.2 mmol/L Remisol Chem CRP SerPl-mCncon 12-17-2024 CRP [Mass/Vol] 14.3 mg/dL High <0.9 [facility] Comment on above: Order Comment: Speci men Type: BLOOD SPECIMEN Ordering Facility: [facility] Address: [address] [place] [address] Performed By: #### 2 4323-8, 1988-01 #### [facility] CLIA [id number] Order Comment: Speci men Type: BLOOD SPECIMENOrdering Facility: [facility] Address: [address] [place] [address] Performed By: #### 2 4323-8, 1988-01 ####[facility] LABORATORYCLIA [id number] [place] [id number] [facility] CT Abdomen/Pelvis w/ Contras ton 12-17-2024 CT Abdomen/Pelvis w/ Contrast Exam Date/Time: 12/16/2024 23:59 EDT Reason for Exam: Pain Report IMPRESSION: COLITIS AND TERMINAL ILEITIS DO NOT APPEAR SEVERELY CHANGED. NO SIGNIFICANT INTERVAL CHANGE OF A PERIANAL ABSCESS WITH FISTULA. NO SIGNIFICANT INTERVAL CHANGE IN RIGHT LOWER LOBE OPACITIES LIKELY REPRESENTING PNEUMONIA. EXAM: CT Abdomen/Pelvis w/ Contrast History: Abdominal pain Technique: Multiple contiguous axial images were obtained of the abdomen and pelvis from the level of the lung bases through the ischial tuberosities with contrast. Multiplanar reformats were obtained. Delayed images were obtained. Unless otherwise stated, incidental findings identified in this report do not require routine follow-up imaging. Comparison: CT abdomen and pelvis 12/12/2024 Findings: Unchanged opacities of the right lung base. Wall thickening of the colon and ileum have not severely changed. Perirectal abscess with fistula is not severely changed. Additional findings of the abdomen and pelvis as detailed on 12/12/2024 CT are also not significantly changed. Please see that report for further details. All CT scans at this facility use dose modulation, iterative reconstruction, and/or weight based dosing when appropriate to reduce radiation dose to as low as reasonably achievable. Technical Comments: GFR (mL/min/1/73m2) >60 Contrast: Isovue 300 Contrast amount in ml's: 100.00 Report Ordering Provider: Nellie Hinkle FINAL REPORT Dictated: 12/17/2024 8:25 am Aldo Ken DO Signed (Electronic Signature): 12/17/2024 8:25 am Signed by: Aldo Ken DO Transcribed by: CLARICE Technologist: LUCINDA Llanes [facility] Comprehensive metabolic 2000 panelon 12-17-2024 Albumin [Mass/Vol] 2.0 g/dL Low 3.9-4.9 [facility] Comment on above: Order Comment: Speci men Type: BLOOD SPECIMEN Ordering Facility: [facility] Address: [address] [place] [address] Performed By: #### 2 4323-04, 1988-01 #### [facility] CLIA [id number] Order Comment: Speci men Type: BLOOD SPECIMENOrdering Facility: [facility] Address: [address] [place] [address] Performed By: #### 2 4323-04, 1988-01 ####[facility] LABORATORYCLIA [id number] [address] ALP [Catalytic activity/Vol] 170 U/L High 34-123 [facility] Comment on above: Order Comment: Speci men Type: BLOOD SPECIMEN Ordering Facility: [facility] Address: [address] [place] [address] Performed By: #### 2 4323-04, 1988-01 #### [facility] CLIA [id number] Order Comment: Speci men Type: BLOOD SPECIMENOrdering Facility: [facility] Address: [address] [place] [address] Performed By: #### 2 4323-04, 1988-01 ####[facility] LABORATORYCLIA [id number] [address] [place] ALT [Catalytic activity/Vol] 7 U/L Normal 7-38 [facility] Comment on above: Order Comment: Speci men Type: BLOOD SPECIMEN Ordering Facility: [facility] Address: [address] [place] [address] Performed By: #### 2 4323-04, 1988-01 #### [facility] CLIA [id number] Order Comment: Speci men Type: BLOOD SPECIMENOrdering Facility: [facility] Address: [address] [place] [address] Performed By: #### 2 4323-04, 1988-01 ####[facility] LABORATORYCLIA [id number] [address] Anion gap [Moles/Vol] 13 mmol/L Normal 8-15 [facility] Comment on above: Order Comment: Speci men Type: BLOOD SPECIMEN Ordering Facility: [facility] Address: [address] [place] [address] Performed By: #### 2 4323-04, 1988-01 #### [facility] CLIA [id number] Order Comment: Speci men Type: BLOOD SPECIMENOrdering Facility: [facility] Address: [address] [place] [address] Performed By: #### 2 4323-04, 1988-01 ####[facility] LABORATORYCLIA [id number] [address] [place] AST [Catalytic activity/Vol] 13 U/L Normal 13-35 [facility] Comment on above: Order Comment: Speci men Type: BLOOD SPECIMEN Ordering Facility: [facility] Address: [address] [place] [address] Performed By: #### 2 4323-04, 1988-01 #### [facility] CLIA [id number] Order Comment: Speci men Type: BLOOD SPECIMENOrdering Facility: [facility] Address: [address] [place] [address] Performed By: #### 2 4323-04, 1988-01 ####[facility] LABORATORYCLIA [id number] [place] [address] [place] Bilirubin [Mass/Vol] 0.3 mg/dL Normal 0.2-1.3 [facility] Comment on above: Order Comment: Speci men Type: BLOOD SPECIMEN Ordering Facility: [facility] Address: [address] [place] [address] [place] [address] Performed By: #### 2 4323-04, 1988-01 #### [facility] CLIA [id number] [place] Order Comment: Speci men Type: BLOOD SPECIMENOrdering Facility: [facility] Address: [address] [place] [address] Performed By: #### 2 4323-04, 1988-01 ####[facility] LABORATORYCLIA [id number] [place] [address] [place] Calcium [Mass/Vol] 7.7 mg/dL Low 8.5-10.2 [facility] Comment on above: Order Comment: Speci men Type: BLOOD SPECIMEN Ordering Facility: [facility] Address: [facility] [place] [address] Performed By: #### 2 4323-04, 1988-01 #### [facility] CLIA [id number] [place] [address] [place] Order Comment: Speci men Type: BLOOD SPECIMENOrdering Facility: [facility] Address: [address] [place] [address] Performed By: #### 2 4323-04, 1988-01 ####[facility] LABORATORYCLIA [id number] [place] [address] [place] Chloride [Moles/Vol] 101 mmol/L Normal 98-107 [facility] Comment on above: Order Comment: Speci men Type: BLOOD SPECIMEN Ordering Facility: [facility] Address: [facility] [place] [address] Performed By: #### 2 4323-04, 1988-01 #### [facility] CLIA [id number] Order Comment: Speci men Type: BLOOD SPECIMENOrdering Facility: [facility] Address: [address] [place] [address] Performed By: #### 2 4323-04, 1988-01 ####[facility] LABORATORYCLIA [id number] [place] [address] [place] CO2 [Moles/Vol] 22 mmol/L Normal 22-30 [facility] Comment on above: Order Comment: Speci men Type: BLOOD SPECIMEN Ordering Facility: [facility] Address: [address] [place] [address] Performed By: #### 2 4323-04, 1988-01 #### [facility] CLIA [id number] [place] [address] Order Comment: Speci men Type: BLOOD SPECIMENOrdering Facility: [facility] Address: [address] [place] [address] Performed By: #### 2 4323-04, 1988-01 ####[facility] LABORATORYCLIA [id number] [place] [address] [place] Creatinine [Mass/Vol] 0.70 mg/dL Normal 0.58-0.96 [facility] Comment on above: Order Comment: Speci men Type: BLOOD SPECIMEN Ordering Facility: [facility] Address: [address] [place] [address] Performed By: #### 2 4323-04, 1988-01 #### [facility] CLIA [id number] Order Comment: Speci men Type: BLOOD SPECIMENOrdering Facility: [facility] Address: [address] [place] [address] Performed By: #### 2 4323-04, 1988-01 ####[facility] LABORATORYCLIA [id number] [address] [place] Creatinine and Glomerular filtration rate.predicted panel (S/P/Bld) 120 mL/min/1.73m??? Normal >=60 [facility] Comment on above: Order Comment: [place] ri[place] Type: BLOOD SPECIMEN Ordering Facility: [facility] Address: [address] [place] [address] Result Comment: Alysha mated Glomerular Filtration Rate [...] reflect actual GFR. Performed By: #### 2 43211-28, 1988-01 #### [facility] CLIA [id number] [place] Order Comment: [place] Type: BLOOD SPECIMENOrdering Facility: [facility] Address: [address] [place] [address] Performed By: #### 2 43211-28, 1988-01 ####[facility] LABORATORYCLIA [id number] [place] [address] [place] Glucose [Mass/Vol] 77 mg/dL Normal 74-99 [facility] Comment on above: Order Comment: [place] Type: BLOOD SPECIMEN Ordering Facility: [facility] Address: [address] [place] [address] Result Comment: The [place] Diabetes Association (ADA) provides guidance for cutoff [...] Standards of Medical Care in Diabetes 2016, [place] [employer]. Diabetes Care. 2016.39(Suppl 1). Performed By: #### 2 43238, 1988-01 #### [facility] CLIA [id number] [address] [place] [address] Order Comment: Speci men Type: BLOOD SPECIMENOrdering Facility: [facility] Address: [address] [place], [place] [id number] Performed By: #### 2 4323-04, 1988-01 ####[facility] LABORATORYCLIA [id number] [place] [address] [place] Potassium [Moles/Vol] 3.4 mmol/L Low 3.7-5.1 [facility] Comment on above: Order Comment: Speci men Type: BLOOD SPECIMEN Ordering Facility: [facility] Address: [address] [place] [address] Performed By: #### 2 4323-04, 1988-01 #### [facility] CLIA [id number] [address] [place] [address] OF [facility] Order Comment: Speci men Type: BLOOD SPECIMENOrdering Facility: [facility] Address: [address] [place] [address] Performed By: #### 2 4323-04, 1988-01 ####[facility] LABORATORYCLIA [id number] [place] [address] [place] Protein [Mass/Vol] 5.7 g/dL Low 6.3-8.0 [facility] Comment on above: Order Comment: Speci men Type: BLOOD SPECIMEN Ordering Facility: [facility] Address: [address] [place] [address] Performed By: #### 2 4323-04, 1988-01 #### [facility] CLIA [id number] [address] [place] [address] OF [facility] Order Comment: Speci men Type: BLOOD SPECIMENOrdering Facility: [facility] Address: [address] [place], [place] [id number] Performed By: #### 2 4323-04, 1988-01 ####[facility] LABORATORYCLIA [id number] [place] [address] [place] Sodium [Moles/Vol] 136 mmol/L Normal 136-144 [facility] Comment on above: Order Comment: Speci men Type: BLOOD SPECIMEN Ordering Facility: [facility] Address: [address] [place] [address] Performed By: #### 2 43211-28, 1988-01 #### [facility] CLIA [id number] Order Comment: Speci men Type: BLOOD SPECIMENOrdering Facility: [facility] Address: [address] [place] [address] Performed By: #### 2 43211-28, 1988-01 ####[facility] LABORATORYCLIA [id number] [address] [place] Urea nitrogen [Mass/Vol] 4 mg/dL Low 7- [facility] Comment on above: Order Comment: Speci men Type: BLOOD SPECIMEN Ordering Facility: [facility] Address: [address] [place] [address] Performed By: #### 2 43211-28, 1988-01 #### [facility] CLIA [id number] [place] [address] OF [facility] Order Comment: Speci men Type: BLOOD SPECIMENOrdering Facility: [facility] Address: [address] [place] [address] Performed By: #### 2 43211-28, 1988-01 ####[facility] LABORATORYCLIA [id number] [address] [place] ED Clinical Summaryon 2024 ED Clinical Summary ED Clinical Summary [place] [address] ED Clinical Summary Person Information Name: ROLA AGUILAR Elena/[facility] Age: 29 Years : 1995 Sex: Female Language: Honduran PCP: NONE, XXXX Marital Status: Single Visit Id: Visit Reason: Medical problem reevaluation; Abdominal problem; Nausea; Abdominal pain; ABD PAIN Speciality: Acuity: 3 Enc Type: Emergency Med Service: Emergency Arrival: 12/16/2024 21:44:49 Discharge: 12/17/2024 15:00:39 LOS: 000 17:16 Checkin: 12/16/2024 21:44:49 Checkout: 12/17/2024 15:00:39 Dispo Type: Short-Term Hosp as IP EVENTS: Event Name Event Status Request Date/Time Start Date/Time Complete Date/Time Arrive Complete 12/16/2024 21:44:49 12/16/2024 21:44:49 12/16/2024 21:44:49 Document Home Meds Request 12/16/2024 21:44:49 Triage Complete 12/16/2024 21:44:49 12/16/2024 21:50:24 12/16/2024 21:50:24 Bed Assign Complete 12/16/2024 21:44:49 12/16/2024 21:44:49 12/16/2024 21:44:49 Dr Exam Complete 12/16/2024 21:44:49 12/16/2024 22:19:34 12/16/2024 22:19:34 RN Exam Complete 12/16/2024 21:44:49 12/16/2024 21:51:32 12/16/2024 21:51:32 30 Day Return Request 12/16/2024 21:50:24 Pending Labs Complete 12/16/2024 21:53:10 12/17/2024 12:41:53 Lab Complete 12/16/2024 21:53:10 12/16/2024 22:45:28 Pending Labs Complete 12/16/2024 22:15:22 12/16/2024 22:15:22 12/16/2024 22:45:28 Lab Complete 12/16/2024 22:15:22 12/16/2024 22:15:22 12/16/2024 22:45:28 Registration Complete 12/16/2024 22:19:34 12/16/2024 22:20:24 12/16/2024 22:20:24 Reg Complete Request 12/16/2024 22:20:24 Reg Bed Request Complete 12/16/2024 22:20:24 12/16/2024 22:20:24 12/16/2024 22:20:24 Pending Labs Complete 12/16/2024 22:20:38 12/16/2024 22:20:38 12/16/2024 22:20:38 Pending Labs Complete 12/16/2024 22:21:25 12/16/2024 22:21:25 12/16/2024 22:21:25 Meds Admin Complete 12/16/2024 22:31:16 12/16/2024 22:45:47 Pending Labs Inlab 12/16/2024 22:32:04 Lab Inlab 12/16/2024 22:32:04 Meds Admin Complete 12/16/2024 22:32:28 12/16/2024 22:45:48 CT Complete 12/16/2024 22:33:13 12/16/2024 23:35:53 12/16/2024 23:59:12 Pending Labs Complete 12/16/2024 22:39:29 12/16/2024 23:34:23 Pending Labs Cancel 12/16/2024 23:26:30 12/16/2024 23:35:48 Lab Cancel 12/16/2024 23:26:30 12/16/2024 23:35:48 Meds Admin Request 12/17/2024 00:20:35 Meds Admin Complete 12/17/2024 00:23:37 12/17/2024 00:36:58 Patient Care Request 12/17/2024 00:32:12 Transfer Complete 12/17/2024 00:32:12 12/17/2024 15:00:53 12/17/2024 15:00:53 Meds Admin Cancel 12/17/2024 00:39:13 12/17/2024 00:40:29 Meds Admin Complete 12/17/2024 00:40:48 12/17/2024 01:18:11 Meds Admin Complete 12/17/2024 01:25:38 12/17/2024 01:34:39 Meds Admin Complete 12/17/2024 02:59:45 12/17/2024 03:08:44 Meds Admin Complete 12/17/2024 04:52:19 12/17/2024 05:10:45 Dr Exam Complete 12/17/2024 06:40:11 12/17/2024 06:40:11 12/17/2024 06:40:11 Registration Request 12/17/2024 06:40:11 Meds Admin Request 12/17/2024 08:05:56 Meds Admin Request 12/17/2024 08:08:55 Meds Admin Complete 12/17/2024 10:44:48 12/17/2024 10:49:28 Pending Labs Inlab 12/17/2024 12:41:53 12/17/2024 12:41:53 Lab Inlab 12/17/2024 12:41:53 12/17/2024 12:41:53 Meds Admin Complete 12/17/2024 14:27:10 12/17/2024 14:44:40 Discharge Complete 12/17/2024 15:00:53 12/17/2024 15:00:53 12/17/2024 15:00:53 ADDRESS: [address] [place] [phone] PHYS DOC NOTES: MEDICAL INFORMATION: Prescriptions Given: Medications to Continue with No Changes Other Medications amoxicillin-clavulana te (Augmentin 875 mg oral tablet) 1 Tablets By Mouth every 12 hours for 10 Days. Refills: 0. busPIRone (busPIRone 10 mg Tab) 1 Tablets By Mouth 2 times a day. dicyclomine (Bentyl 10 mg Cap) 2 Capsules By Mouth 4 times a day. Refills: 0. levetiracetam (Keppra 250 mg Tab) 2 Tablets By Mouth 2 times a day. Refills: 1. lorazepam (Ativan 1 mg Tab) 1 Tablets By Mouth 3 times a day as needed for anxiety. Refills: 0. magnesium glycinate (magnesium glycinate 100 mg oral capsule) 2 Capsules By Mouth every day. Refills: 0. naloxone (naloxone 4 mg/0.1 mL nasal spray) 4 Milligram Nasal Inhalation As Directed. for suspected overdose symptoms. Refills: 0. ondansetron (ondansetron 4 mg Dis Tab) 1 Tablets By Mouth every 6 hours. Refills: 0. ondansetron (Zofran ODT 4 mg Tab-Dis) 1 Tablets By Mouth every 6 hours. Refills: 0. oxycodone (oxyCODONE 5 mg Cap) 1 Capsules By Mouth every 6 hours as needed for pain. Refills: 0. oxycodone (oxyCODONE 5 mg Tab) 1 Tablets By Mouth every 6 hours as needed as needed for pain. Refills: 0. promethazine (promethazine 25 mg Tab) 1 Tablets By Mouth every 6 hours as needed as needed for nausea/vomiting. Refills: 0. PATIENT EDUCATION INFORMATION: Instructions: Follow up: DIAGNOSIS: Crohn's colitis; Parastomal hernia; Perirectal abscess; Sepsis Normal [facility] ED Note-Physicianon 12-18-19 ED Note-Physician ED Note-Physician ED Rounding Note HPI: Patient boarding overnight the emergency department while awaiting transfer to [facility]. No events overnight. She remains hemodynamically stable. She is requesting pain, nausea and anxiety medication this morning. ROS: A 10 point review of systems is negative except as noted above. Exam: VITALS: I have reviewed the vital signs in the EMR. GENERAL: Well developed, well appearing adult in no acute distress. NEURO: Alert and oriented. Moves all extremities. Face is symmetric and expressive. EYES: PERRL. No scleral icterus or conjunctival injection. No discharge. HENT: Normocephalic, atraumatic. Hearing is grossly intact. Nares grossly patent and without discharge. Mucous membranes moist. NECK: No JVD. Patient moves neck without restriction. CARDIO: Rhythm regular. Normal rate. No murmur, rub, or gallop. Pulses equal bilaterally in the upper and lower extremity. No lower extremity edema. PULM: Lungs clear to auscultation in all weinberg. No wheezes, rales, or rhonchi. No conversational dyspnea. No splinting, stridor, or accessory muscle use. GI/: Abdomen is soft and non-tender. Normoactive bowel sounds. EXTREMITIES: Symmetric muscle bulk. No joint swelling. No clubbing, cyanosis, or deformity. SKIN: Warm and dry. Normal turgor. No rash or lesions appreciated. PSYCH: Mood, affect, and interaction is appropriate to the setting. Assessment/Plan: Perirectal Abscess - Continue Zosyn every 6 hours - As needed hydromorphone and Zofran for symptom control - Transfer to her Colorectal Surgeon at [facility], accepted to el[facility] Oscar[facility] bed assignment. Sepsis - Sepsis without septic shock - There were some low blood pressures recorded early in the morning however these were due to the cuff and appropriate applied, she is not hypertensive upon proper cuff application and recheck. - Abx as above History of Seizures - Continue Keppra 500 twice daily History of anxiety - Ativan as needed Diet: Clears Fluids: LR@125 ml/hr Elliot Macias DO, [facility] [place] Comment on above: Result Comment: Elec tronically Signed By: Elliot Macias DO\.br\Date and Time Signed: 12/17/24 08:27 EDT ED Note-Physician ED Note-Physician Basic Information Time Seen: Manan LEDESMA, Nellie Andersen 12/16/2024 22:19 Chief Complaint pt arrives via sdems from home for c/o abd pain that started this morning. pt states she has ongoing abd issues and scheduled for surgery in december. pt states she does have an ostomy that is having good output still. zofran given by ems ENERGY ECONOMIST History of Present Illness Patient is a 29-year-old female with a history of anxiety, bipolar disorder, tachycardia, pressure ulcers, and Crohn's disease status post ileostomy who presents to the ED with recurrent abdominal pain and nausea. Patient states she has an extensive history of abdominal pain for the past year. She states she is scheduled to have a proctocolectomy on January 08 through her colorectal surgeon at [facility] due to these issues. She states she has been in the hospital numerous times for similar complaints, including 3 days ago. Patient states that she was prescribed Augmentin while in the ED 3 days ago but did not start taking it as it had to be cleared by her neurologist yesterday due to her recent diagnosis of seizures. She notes she is continuing to have appropriate output through her ileostomy and notes mild bright red blood with changing the bag, but believes this is secondary to agitation of the site. Patient notes nausea but denies vomiting. She denies any known fevers or recent seizures. Review of Systems A 10 point review of systems is negative except as noted above. Medical and Surgical History: Reviewed and noted Social history: Lives at home Family History: Reviewed. Tobacco: denies Physical Exam Vitals & Measurements T: 36.5 ???C(Temporal Artery) T: 36.5 ???C(Oral) HR: 119(Monitored) RR: 16 BP: 112/77 SpO2: 96% HT: 167 cm WT: 52.5 kg BMI: 18.82 General: The patient appears well and in no apparent distress. Patient is resting comfortably on cart. Skin: Warm, dry, no pallor noted. Head: Normocephalic, atraumatic Neck: Trachea midline Eye: PERRLA, EOMI ENT: Moist mucus membranes Cardiovascular: Regular rate normal peripheral perfusion Respiratory: No respiratory distress no accessory muscle use no obvious audible wheezing Musculoskeletal: normal ROM, no deformity, no swelling GI: Soft no obvious distention. No rebound or rigidity. Diffuse abdominal tenderness to palpation with guarding. Ileostomy to right side of abdomen with greenish-brown drainage and prolapsed tissue, no obvious bleeding : Opening at the intergluteal cleft with surrounding macerated skin and mucopurulent drainage, shallow pressure ulcer to the right gluteal region with no active drainage and well-demarcated surrounding erythema Neurological: A&O moves all extremities equal strength and symmetry Psychiatric: Cooperative and appropriate Medical Decision Making Patient is a 29-year-old female with a history of anxiety, bipolar disorder, tachycardia, pressure ulcers, and Crohn's disease status post ileostomy who presents to the ED with recurrent abdominal pain and nausea. Patient is hemodynamically stable. On arrival she does have a temperature of 38 ???C and is given Tylenol. She is tachycardic on exam, however this does appear to be baseline for her. Patient is given morphine and 1 L normal saline. Chart review shows the patient has had numerous CT abdomen/pelvis, with the most recent being 3 days ago, however as the patient is febrile today, I do feel repeat imaging is warranted. Patient is agreeable with this. Lab work is reviewed. Hemoglobin of 10.1, decreased from 11.5. Hematocrit of 29.7, decreased from 34.7. Platelet of 601 is improved from prior. Alk phos of 146 improved from prior. Lactic acid is elevated to 2.4. CT abdomen/pelvis is showing severe wall thickening of the colon, preferentially involving the sigmoid colon and rectum consistent with colitis. There is also perirectal abscess arising from the right side of the rectum measuring approximately 2.7 x 1.9 cm. This collection is adherent to the levator ani musculature. Small perianal collections are also present. Right lower quadrant ileostomy with small parastomal hernia measuring 3.1 x 4.2 cm. Patient was updated on results. repeat temperature is improved. She is started on IV Zosyn, Dilaudid for breakthrough pain, and an additional 500 cc normal saline to achieve 30 mL/kg sepsis fluid bolus. I recommended admission versus transfer in which patient elected for transfer to [facility] for continuity of care. Case was discussed with environmental emergencies planner colorectal surgeon, Dr. Isaac, who is accepting the patient for transfer to [facility]. Patient is agreeable with the plan. Patient care is being handed off to my supervising physician and disposition is awaiting bed availability. The patient has been accepted by Dr. Isaac at [facility]. We are simply awaiting a bed. Assessment/Plan Crohn's colitis (K50.10: Crohn's disease of large intestine without complications) Parastomal hernia (K43.5: Parastomal (more content not included)... Normal [facility] Comment on above: Result Comment: Elec tronically Signed By: Nellie Hinkle PA-C\.br\Date and Time Signed: 12/17/24 00:42 EDT\.br\Electronically Co-Signed By: Nellie Hinkle PA-C\.br\Date and Time Co-Signed: 12/17/24 00:44 EDT\.br\Electronically Co-Signed By: Heriberto Cervantes MD\.br\Date and Time Co-Signed: 12/17/24 01:54 EDT ED Patient Education Noteon 12-17-2024 ED Patient Education Note ED Patient Education Note Normal [facility] ED Patient Summaryon 025 ED Patient Summary ED Patient Summary [place] [address] Patient Discharge Instructions Person Information Name: ROLA AGUILAR Age: 29 Years Arrival Date: 12/16/2024 21:44:49 Discharge Diagnosis: Crohn's colitis; Parastomal hernia; Perirectal abscess; Sepsis Primary Care Physician: NONE, XXXX Provider Information Primary Provider: Heriberto Cervantes MD Advanced Implementation Lead:Ensman PA-C, Nellie L. The exam and treatment you received in the Emergency Department were for an urgent problem and are not intended as complete care. It is important that you follow up with a doctor, nurse practitioner, or physician???s back office medical assistant for ongoing care. If your symptoms become worse or you do not improve as expected and you are unable to reach your usual health care provider, you should return to the Emergency Department. We are available 24 hours a day. ROLA AGUILAR has been given the following list of patient education materials, prescriptions and follow-up instructions: Follow-up Instructions: In the event that this physician does not participate in your insurance network, please consult with your insurance company to find a nearby participating provider. Patient Education Materials: A MESSAGE TO ALL PATIENTS REGARDING OPIOIDS PRESCRIPTION OPIOIDS: WHAT YOU NEED TO KNOW Prescription opioids can be used to help relieve wdqvvgrm-pc-xvwqwk pain and are often prescribed following a [...] guidance from the Food and Drug Administration (www.fda.gov/Drugs/Re sourcesForYou). ??? Visit www.cdc.gov/drugoverd ose to learn about the risks of opioids abuse and overdose. ??? If you believe you may be struggling with addiction, tell your health career representative and ask for guidance or call [facility]???S National Helpline at 5-876-733-CUOS. v Source: [place] Department of Health and (more content not included)... Normal [facility] HISTORY PHYSICALon HISTORY PHYSICAL HNO ID: [id number] Author: STEPHANIE CARRION MD Service: Colorectal Author Type: Resident Type: H&P Filed: 12/17/2024 17:49 Note Text: Attestation signed by Komal Hernandez MD at 12/18/2024 7:42 PM [facility] STAFF PHYSICIAN NOTE OF PERSONAL INVOLVEMENT IN CARE I have reviewed the history and physical exam obtained and documented by the resident and I personally participated in the nelson components. I have confirmed and edited as necessary, the PFSH and ROS obtained by others. I have discussed the case and management of the patient's care. The following comments revise or confirm relevant nelson components of the note. Medical Decision Making: Assessment AND Diagnosis: 29 year old female with h/o Crohn's proctocolitis with known severe perianal disease s/p multiple EUA's (most recently being on 07/17/[address] Thakkar for a large abscess cavity in the ischiorectal space with fistulization to the rectum) and a lap DLI creation in 2018 transferred from OSH for increased pain and drainage from anus. Will proceed with EUA to rule out undrained abscess. Data Reviewed: Tests AND Documents Reviewed/ordered: Review of prior notes from [facility] Review of prior operative reports Review of Imaging: CT Abdomen, CT Pelvis Review of Labs: CBC, BMP Review of Procedures / Tests: Colonoscopy I have independently interpreted: CT Abdomen, CT Pelvis Treatment plan: EUA Risk of morbidity, mortality and/or complications of treatment plan: cait Hernandez MD Date of Service: December 18, 2024 Time Spent: 60 minutes, >50% of the time was spent in counseling and coordination of care as outlined in the plan above. [facility] HAND SERVICE DATE: 12/17/2024 SERVICE TIME: 4:32 PM PRIMARY CARE PHYSICIAN: No primary care provider on file. Subjective CHIEF COMPLAINT: Chronic abdominal pain HISTORY OF PRESENT ILLNESS: Ms. 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 She last saw Dr Thakkar in clinic on 12/04/24 and is scheduled for a total proctocolectomy with permanent ileostomy on 01/08/2025. For her Crohn's, she has been on humira, stellara, and Entyvio. She has stopped all these medications because of subjective concern for abscess. The remainder of her PMH includes severe anxiety, chronic pain (on oxycodone), and a newly diagnosed seizure disorder. She presented to the [facility]'s ED with acute worsening of her chronic pain and increased drainage, which exacerbated her anxiety and prompted concern for possible recurrence of her seizures due to stress. She was subsequently transferred to the [facility] for higher level of care. On interview, patient is trembling and crying. She reports acute worsening of her pain and anxiety, and feels she is having a panic attack. However, she declines to speak with any mental health service provider this admission. She is requesting dilaudid and ativan at this time. Amenable to antibiotics. She reports that she would like to have one combined surgery to fix her parastomal hernia, prolapsed stoma, proctocolectomy, and perineal/perianal lesions because she feels her body would not be able to handle multiple surgeries, but would not be interested in an EUA. She denies any use of any disease modifying drugs over the past 6 months. Other symptoms included include increased purulent drainage, one fever at [facility], and a fear of eating due to pain, but is requesting a diet. She requested that we do not attempt to reduce her stoma because it has been prolapsed for over one year. FUNCTIONAL STATUS: Partially dependent. No past medical history on file. No past surgical history on file. No family history on file. busPIRone (BUSPAR) 10 mg tablet, Take 10 mg by mouth three times a day., Disp: , Rfl: , Taking levETIRAcetam (KEPPRA) 500 mg tablet, Take 500 mg by mouth two times a day., Disp: , Rfl: , Taking Magnesium 200 mg tab, Take 200 mg by mouth once daily., Disp: , Rfl: Current Facility-Administered Medications Medication Dose Route Frequency [START ON 12/18/2024] heparin 5,000 Units injection 5,000 Units SUBCUTANEOUS q 12 H NaCl 0.9% iv flush bag 20 mL INTRAVENOUS PRN lactated ringers iv infusion 75 mL/hr INTRAVENOUS CONTINUOUS acetaminophen 650 mg tab(s) (TYLENOL) 650 mg ORAL q 4 H PRN busPIRone 10 mg tab(s) (BUSPAR) 10 mg ORAL TID levETIRAcetam 500 mg tab(s) (KEPPRA) 500 mg ORAL BID ondansetron (PF) 4 mg injection (ZOFRAN) 4 mg INTRAVENOUS q 6 H PRN HYDROmorphone 0.2 mg injection (DILAUDID) 0.2 mg INTRAV (more content not included)... Normal [facility] Lactic Acidon 12-17-2024 Lactic Acid Lvl 1.5 mmol/L Normal 0.5-2.2 [facility] Comment on above: Performed By: #### 2 [id number] #### [facility] [address] [place] [address] TYPE + SCREENon 12-17-2024 ABO B Normal [facility] Comment on above: Order Comment: Speci men Type: BLOOD SPECIMEN Ordering Facility: [facility] Address: [address] [place] [address] Performed By: #### T SCR #### [facility] CLIA [id number] [place] Order Comment: Speci men Type: BLOOD SPECIMENOrdering Facility: [facility] Address: [address] [place] [address] Performed By: #### T SCR ####[facility] [id number] [place] [address] [place] Rh Nom (Bld) Positive Normal [facility] Comment on above: Order Comment: Speci men Type: BLOOD SPECIMEN Ordering Facility: [facility] Address: [address] [place] [address] Performed By: #### T SCR #### [facility] CLIA [id number] Order Comment: Speci men Type: BLOOD SPECIMENOrdering Facility: [facility] Address: [address] [place] [address] Performed By: #### T SCR ####[facility] [id number] [address] TYPE AND SCREEN EXPIRATION 12/20/2024 23:59 Normal [facility] Comment on above: Order Comment: Speci men Type: BLOOD SPECIMEN Ordering Facility: [facility] Address: [address] [place] [address] Performed By: #### T SCR #### [facility] CLIA [id number] Order Comment: Speci men Type: BLOOD SPECIMENOrdering Facility: [facility] Address: [address] [place] [address] Performed By: #### T SCR ####[facility] [id number] [address] UA with Cult Rflxon 12-18-19 25 Bilirubin Ql (U) Negative Normal Negative [facility] Comment on above: Performed By: #### 4 [id number] #### [facility] [address] [place] [address] Clarity (U) Clear Normal Clear [facility] Comment on above: Performed By: #### 4 [id number] #### [facility] [address] [place] [address] Color (U) Light-Yellow Normal Yellow [facility] Comment on above: Result Comment: Micr oscopic readings are only performed on those samples that meet specific criteria set forth by [facility]. Performed By: #### 4 [id number] #### [facility] [address] [place] [address] Epithelial cells.squamous Auto (Urine sed) [#/Area] 0-2 Invalid Interpretation Code [facility] Comment on above: Performed By: #### 4 [id number] #### [facility] [address] [place] [address] Glucose Ql (U) Negative Normal Negative [facility] Comment on above: Performed By: #### 4 [id number] #### [facility] [address] [place] [address] Hemoglobin Auto test strip (U) [Mass/Vol] Negative Normal Negative [facility] Comment on above: Performed By: #### 4 [id number] #### [facility] [address] [place] [address] Ketones Auto test strip Ql (U) Negative Normal Negative [facility] Comment on above: Performed By: #### 4 [id number] #### [facility] [address] [place] [address] Leukocyte esterase Auto test strip Ql (U) 250 Cristela/uL Abnormal Negative [facility] Comment on above: Performed By: #### 4 [id number] #### [facility] [address] [place] [address] Mucus Auto Ql (U) Negative Normal Negative [facility] Comment on above: Performed By: #### 4 [id number] #### [facility] [address] [place] [address] Nitrite Auto test strip Ql (U) Negative Normal Negative [facility] Comment on above: Performed By: #### 4 [id number] #### [facility] [address] [place] [address] pH (U) 7.0 [pH] Invalid Interpretation Code 5.0-9.0 [facility] Comment on above: Performed By: #### 4 [id number] #### [facility] [address] [place] [address] Protein Ql (U) Negative Normal Negative [facility] Comment on above: Performed By: #### 4 [id number] #### [facility] [address] [place] [address] RBC Ql (U) 0-3 Normal 0-3 [facility] Comment on above: Performed By: #### 4 [id number] #### [facility] [address] [place] [address] Specific gravity (U) [Rel density] 1.023 Invalid Interpretation Code 1.005-1.030 [facility] Comment on above: Performed By: #### 4 [id number] #### [facility] [address] [place] [address] Urobilinogen (U) [Mass/Vol] Negative Normal Negative [facility] Comment on above: Performed By: #### 4 [id number] #### [facility] [address] [place] [address] WBC Auto (Urine sed) [#/Area] 6-15 Abnormal 0-5 [facility] Comment on above: Performed By: #### 4 [id number] #### [facility] [address] [place] [address] URINALYSISOrdered By: SYSTEM SYSTEM on 12-17-2024 Bilirubin Ql (U) Negative Normal Negativemg/dL [facility] UA Auto SS Clarity (U) Clear (12/17/24 12:24 PM) Normal Clear [facility] Auto SS Color (U) Light-Yellow 1 (12/17/24 12:24 PM) Normal Yellow [facility]A Auto SS Comment on above: Interpretive Data: M icroscopic readings are only performed on those samples that meet specific criteria set forth by [facility]. Epithelial cells.squamous Auto (Urine sed) [#/Area] 0-2 graded/HPF Invalid Interpretation Code [facility] UA Auto SS Glucose Ql (U) Negative Normal Negativemg/dL [facility] UA Auto SS Hemoglobin Auto test strip (U) [Mass/Vol] Negative Normal Negativemg/dL [facility] UA Aut o SS Ketones Auto test strip Ql (U) Negative Normal Negativemg/dL [facility] UA Auto SS Leukocyte esterase Auto test strip Ql (U) 250 Cristela/uL Cristela/uL Invalid Interpretation Code NegativeLeu/uL [facility] UA Auto SS Mucus Auto Ql (U) Negative Normal Negativegr aded /LPF [facility] UA Auto SS Nitrite Auto test strip Ql (U) Negative Normal Negativemg/dL [facility] UA Auto SS pH (U) 7.0 *NA* (12/17/24 12:24 PM) Invalid Interpretation Code 5.0 - 9.0 [facility] UA Auto SS Protein Ql (U) Negative Normal Negativemg/dL [facility] UA Auto SS RBC Ql (U) 0-3 graded/HPF Normal 0-3graded/HPF [facility] UA Auto SS Specific gravity (U) [Rel density] 1.023 *NA* (12/17/24 12:24 PM) Invalid Interpretation Code 1.005 - 1.030 [facility] UA Auto SS Urobilinogen (U) [Mass/Vol] Negative Normal Negativemg/dL [facility] UA Auto SS WBC Auto (Urine sed) [#/Area] 6-15 graded/HPF Invalid Interpretation Code 0-5graded/HPF [facility] UA Auto SS URINALYSISOrdered By: Eric Winters on 12-17-2024 UA Spec Desc Clean Catch (12/17/24 12:24 PM) Normal [facility] UA Auto SS B hCG [facility] 12-16-2024 Beta HCG ( test) Ql Negative Normal [facility] Comment on above: Performed By: #### 2 [id number] #### [facility] [address] [place] [address] BMPon 12-16-2024 Anion gap [Moles/Vol] 12 mmol/L Normal 6-16 [facility] Comment on above: Performed By: #### 2 [id number] #### [facility] [address] [place] [address] Calcium [Mass/Vol] 7.6 mg/dL Low 8.9-11.1 [facility] Comment on above: Performed By: #### 2 [id number] #### [facility] [address] [place] [address] Chloride [Moles/Vol] 101 mmol/L Normal 101-111 [facility] Comment on above: Performed By: #### 2 [id number] #### [facility] [address] [place] [address] CO2 [Moles/Vol] 27 mmol/L Normal 21-31 [facility] Comment on above: Performed By: #### 2 [id number] #### [facility] [address] [place] [address] Creatinine [Mass/Vol] 0.7 mg/dL Normal 0.5-1.3 [facility] Comment on above: Performed By: #### 2 [id number] #### [facility] [address] [place] [address] Glucose [Mass/Vol] 94 mg/dL Normal 55-199 [facility] Comment on above: Performed By: #### 2 [id number] #### [facility] [address] [place] [address] Potassium [Moles/Vol] 3.5 mmol/L Normal 3.5-5.3 [facility] Comment on above: Performed By: #### 2 [id number] #### [facility] [address] [place] [address] Sodium [Moles/Vol] 136 mmol/L Normal 135-145 [facility] Comment on above: Performed By: #### 2 [id number] #### [facility] [address] [place] [address] Urea nitrogen [Mass/Vol] 7 mg/dL Normal 5-21 [facility] Comment on above: Performed By: #### 2 [id number] #### [facility] [address] [place] [address] Urea nitrogen/Creatinine [Mass ratio] 10 No Units Normal 10-20 [facility] Comment on above: Performed By: #### 2 [id number] #### [facility] [address] [place] [address] CBC w/ Auto Diffon 5 Basophils/100 WBC (Bld) 0.4 % Normal 0.0-2.0 [facility] Comment on above: Performed By: #### 2 [id number] #### [facility] [address] [place] [address] Basophils/Leukocytes Auto (Bld) [Pure # fraction] 0.0 E9/L Normal 0.0-0.2 [facility] Comment on above: Performed By: #### 2 [id number] #### [facility] [address] [place] [address] Eosinophils (Bld) [#/Vol] 0.1 E9/L Normal 0.0-0.5 [facility] Comment on above: Performed By: #### 2 [id number] #### [facility] [address] [place] [address] Eosinophils/100 WBC (Bld) 0.8 % Normal 0.0-8.0 [facility] Comment on above: Performed By: #### 2 [id number] #### [facility] [address] [place] [address] Erythrocyte distribution width (RBC) [Ratio] 16.2 % High 10.9-14.2 [facility] Comment on above: Performed By: #### 2 [id number] #### [facility] [address] [place] [address] Hematocrit (Bld) [Volume fraction] 29.7 % Low 34.0-46.0 [facility] Comment on above: Performed By: #### 2 [id number] #### [facility] [address] [place] [address] Hemoglobin (Bld) [Mass/Vol] 10.1 g/dL Low 12.0-16.0 [facility] Comment on above: Performed By: #### 2 [id number] #### [facility] [address] [place] [address] Lymphocytes (Bld) [#/Vol] 1.3 E9/L Normal 1.0-4.0 [facility] Comment on above: Performed By: #### 2 [id number] #### [facility] [address] [place] [address] Lymphocytes/100 WBC (Bld) 15.6 % Normal 14.0-50.0 [facility] Comment on above: Performed By: #### 2 [id number] #### [facility] [address] [place] [address] MCH (RBC) [Entitic mass] 29.7 pg Normal 27.0-34.0 [facility] Comment on above: Performed By: #### 2 [id number] #### [facility] [address] [place] [address] MCHC (RBC) [Mass/Vol] 33.9 g/dL Normal 31.4-36.0 [facility] Comment on above: Performed By: #### 2 [id number] #### [facility] [address] [place] [address] MCV (RBC) [Entitic vol] 87.7 fL Normal 80.0-100.0 [facility] Comment on above: Performed By: #### 2 [id number] #### [facility] [address] [place] [address] Monocytes (Bld) [#/Vol] 0.6 E9/L Normal 0.2-1.0 [facility] Comment on above: Performed By: #### 2 [id number] #### [facility] [address] [place] [address] Neutrophils (Bld) [#/Vol] 6.6 E9/L Normal 2.0-7.5 [facility] Comment on above: Performed By: #### 2 [id number] #### [facility] [address] [place] [address] Neutrophils/100 WBC (Bld) 75.9 % High 36.0-75.0 [facility] Comment on above: Performed By: #### 2 [id number] #### [facility] [address] [place] [address] Platelet 601.0 E9/L High 150.0-500.0 [facility] Comment on above: Performed By: #### 2 [id number] #### [facility] [address] [place] [address] Platelet mean volume (Bld) [Entitic vol] 6.6 fL Normal 6.4-10.8 [facility] Comment on above: Performed By: #### 2 [id number] #### [facility] [address] [place] [address] RBC (Bld) [#/Vol] 3.4 E12/L Low 4.3-5.9 [facility] Comment on above: Performed By: #### 2 [id number] #### [facility] [address] [place] [address] WBC corrected for nucl RBC Auto (Bld) [#/Vol] 8.6 E9/L Normal 4.0-11.0 [facility] Comment on above: Performed By: #### 2 [id number] #### [facility] [address] [place] [address] CHEMISTRYOrdered By: Melody Management on 12-16-2024 Lactic Acid Lvl 2.4 mmol/L High 0.5 - 2.2 mmol/L [facility] CHEMISTRYOrdered By: Nikhil Bourgeois on 12-16-2024 Albumin [Mass/Vol] 2.3 g/dL Low 3.3 - 5.0 gm/dL [facility] Albumin/Globulin [Mass ratio] 0.8 {ratio} Low 1.1 - 2.2 [facility] ALP [Catalytic activity/Vol] 146 [iU]/d High 21 - 98 Int._Unit/L [facility] ALT No additional P-5'-P [Catalytic activity/Vol] 7 [iU]/d Normal 6 - 46 Int._Unit/L [facility] Anion gap [Moles/Vol] 12 mmol/L Normal 6 - 16 mEq/L R emisol Chem AST [Catalytic activity/Vol] 9 [iU]/d Normal 5 - 43 Int._Unit/L [facility] Bilirubin [Mass/Vol] 0.2 mg/dL Normal 0.0 - 1 .1 mg/dL [facility] Bilirubin.direct [Mass/Vol] 0.1 mg/dL Normal 0.0 - 0.4 mg/dL [facility] Bilirubin.indirect [Mass or moles/Vol] 0.1 mg/dL Normal 0.1 - 0.9 mg/dL [facility] Calcium [Mass/Vol] 7.6 mg/dL Low 8.9 - 11. 1 mg/dL [facility] Chloride [Moles/Vol] 101 mmol/L Normal 101 - 1 11 mmol/L [facility] CO2 [Moles/Vol] 27 mmol/L Normal 21 - 31 mmol/L [facility] Chem Creatinine [Mass/Vol] 0.7 mg/dL Normal 0.5 - 1.3 mg/dL [facility] eGFR 120 mL/min/1.73 m2 Normal >=59mL/mi n/1.7 3 m2 [facility] Globulin (S) [Mass/Vol] 3.0 g/dL Normal 1.4 - 4.0 gm/dL [facility] Glucose [Mass/Vol] 94 mg/dL Normal 55 - 199 mg/dL Re misol Chem Lipase [Catalytic activity/Vol] 10 U/L Low 13 - 58 unit/L [facility] Potassium [Moles/Vol] 3.5 mmol/L Normal 3.5 - 5.3 mmol/L [facility] Protein [Mass/Vol] 5.3 g/dL Low 6.0 - 7.8 gm/dL [facility] Sodium [Moles/Vol] 136 mmol/L Normal 135 - 145 mmol/L [facility] Urea nitrogen [Mass/Vol] 7 mg/dL Normal 5 - 21 mg/dL [facility] Urea nitrogen/Creatinine [Mass ratio] 10 mg/mg Normal 10 - 20 [facility] Extra Blueon 12-16-2024 Tube Collected Plasma Yes Invalid Interpretation Code [facility] Comment on above: Performed By: #### 1 [id number] #### [facility] [address] [place] [address] HEMATOLOGYOrdered By: SYSTEM SYSTEM on 12-16-2024 Basophils/100 WBC (Bld) 0.4 % Normal 0.0 - 2.0 % [facility] Heme Basophils/Leukocytes Auto (Bld) [Pure # fraction] 0.0 E9/L Normal 0.0 - 0.2 E9/L [facility]e Eosinophils (Bld) [#/Vol] 0.1 E9/L Normal 0.0 - 0.5 E9/L [facility] Eosinophils/100 WBC (Bld) 0.8 % Normal 0.0 - 8.0 % [facility] Erythrocyte distribution width (RBC) [Ratio] 16.2 % High 10.9 - 14.2 % [facility] Hematocrit (Bld) [Volume fraction] 29.7 % Low 34.0 - 46.0 % [facility] Hemoglobin (Bld) [Mass/Vol] 10.1 g/dL Low 12.0 - 16.0 gm/dL [facility] Lymphocytes (Bld) [#/Vol] 1.3 E9/L Normal 1.0 - 4.0 E9/L [facility] Lymphocytes/100 WBC (Bld) 15.6 % Normal 14.0 - 50.0 % [facility] MCH (RBC) [Entitic mass] 29.7 pg Normal 27.0 - 34.0 pg [facility]e MCHC (RBC) [Mass/Vol] 33.9 g/dL Normal 31.4 - 36.0 gm/dL [facility] MCV (RBC) [Entitic vol] 87.7 fL Normal 80.0 - 100.0 fL [facility] Monocytes (Bld) [#/Vol] 0.6 E9/L Normal 0.2 - 1.0 E9/L [facility] Monocytes/100 WBC (Bld) 7.3 % Normal 4.0 - 14.0 % [facility] Neutrophils (Bld) [#/Vol] 6.6 E9/L Normal 2.0 - 7.5 E9/L [facility] Neutrophils/100 WBC (Bld) 75.9 % High 36.0 - 75.0 % [facility] Platelet 601.0 E9/L High 150.0 - 500.0 E9/L [facility] Platelet mean volume (Bld) [Entitic vol] 6.6 fL Normal 6.4 - 10.8 fL [facility] RBC (Bld) [#/Vol] 3.4 E12/L Low 4.3 - 5.9 E12/L [facility] WBC corrected for nucl RBC Auto (Bld) [#/Vol] 8.6 E9/L Normal 4.0 - 11.0 E9/L [facility] Hep Func Panelon 12-16-2024 Albumin [Mass/Vol] 2.3 g/dL Low 3.3-5.0 [facility] Comment on above: Performed By: #### 2 [id number] #### [facility] [address] [place] [address] Albumin/Globulin (S) [Mass conc ratio] 0.8 Low 1.1-2.2 [facility] Comment on above: Performed By: #### 2 [id number] #### [facility] [address] [place] [address] ALP [Catalytic activity/Vol] 146 Int._Unit/L High 21-98 [facility] Comment on above: Performed By: #### 2 [id number] #### [facility] [address] [place] [address] ALT No additional P-5'-P [Catalytic activity/Vol] 7 Int._Unit/L Normal 6-46 [facility] Comment on above: Performed By: #### 2 [id number] #### [facility] [address] [place] [address] AST [Catalytic activity/Vol] 9 Int._Unit/L Normal 5-43 [facility] Comment on above: Performed By: #### 2 [id number] #### [facility] [address] [place] [address] Bilirubin [Mass/Vol] 0.2 mg/dL Normal 0.0-1.[address] [facility] Comment on above: Performed By: #### 2 [id number] #### [facility] [address] [place] [address] Bilirubin.direct [Mass/Vol] 0.1 mg/dL Normal 0.0-0.4 [facility] Comment on above: Performed By: #### 2 [id number] #### [facility] [address] [place] [address] Bilirubin.indirect [Mass or moles/Vol] 0.1 mg/dL Normal 0.1-0.9 [facility] Comment on above: Performed By: #### 2 [id number] #### [facility] [address] [place] [address] Globulin (S) [Mass/Vol] 3.0 g/dL Normal 1.4-4.0 [facility] Comment on above: Performed By: #### 2 [id number] #### [facility] [address] [place] [address] Protein [Mass/Vol] 5.3 g/dL Low 6.0-7.8 [facility] Comment on above: Performed By: #### 2 [id number] #### [facility] [address] [place] [address] Lab Miscellaneous-LCon 12-16 Lab Miscellaneous COMMENT Invalid Interpretation Code [facility] Comment on above: Order Comment: autoi mmune encephalitis panel serum Result Comment: Test Ordered: [id number] Autoimmune Encephalopathy Ab Interpretation Negative BN Reference Range: Negative No informative autoantibodies were detected. However, a negative result does not exclude idiopathic or paraneoplastic autoimmune encephalopathy. Anti-Hu Ab Negative BN Reference Range: Negative This test was developed and its performance characteristics determined by [facility]. It has not been cleared or approved by the Food and Drug Administration. Anti-Ri Ab Negative BN Reference Range: Negative This test was developed and its performance characteristics determined by [facility]. It has not been cleared or approved by the Food and Drug Administration. Antineuronal nuclear Ab Type 3 Negative BN Reference Range: Negative This test was developed and its performance characteristics determined by [facility]. It has not been cleared or approved by the Food and Drug Administration. MANAGER CLINICAL INFORMATICS Type-1 (Anti-Yo) Ab Negative BN Reference Range: Negative This test was developed and its performance characteristics determined by [facility]. It has not been cleared or approved by the Food and Drug Administration. Purkinje Cell Cyto Ab Type 2 Negative BN Reference Range: Negative This test was developed and its performance characteristics determined by [facility]. It has not been cleared or approved by the Food and Drug Administration. Purkinje Cell Cyto Ab Type Tr Negative BN Reference Range: Negative This test was developed and its performance characteristics determined by [facility]. It has not been cleared or approved by the Food and Drug Administration. Amphiphysin Antibody Negative BN Reference Range: Negative This test was developed and its performance characteristics determined by [facility]. It has not been cleared or approved by the Food and Drug Administration. CRMP-5 IgG Negative BN Reference Range: Negative This test was developed and its performance characteristics determined by [facility]. It has not been cleared or approved by the Food and Drug Administration. AGNA-1 Negative BN Reference Range: Negative This test was developed and its performance characteristics determined by [facility]. It has not been cleared or approved by the Food and Drug Administration. DPPX Antibody Negative BN Reference Range: Negative This test was developed and its performance characteristics determined by [facility]. It has not been cleared or approved by the Food and Drug Administration. mGluR1 Antibody Negative BN Reference Range: Negative This test was developed and its performance characteristics determined by [facility]. It has not been cleared or approved by the Food and Drug Administration. IgLON5 Antibody Negative BN Reference Range: Negative This test was developed and its performance characteristics determined by [facility]. It has not been cleared or approved by the Food and Drug Administration. Ma2/Ta Antibody Negative BN Reference Range: Negative This test was developed and its performance characteristics determined by [facility]. It has not been cleared or approved by the Food and Drug Administration. Zic4 Antibody Negative BN Reference Range: Negative This test was developed and its performance characteristics determined by [facility]. It has not been cleared or approved by the Food and Drug Administration. DNER Antibody Negative BN Reference Range: Negative This test was developed and its performance characteristics determined by [facility]. It has not been cleared or approved by the Food and Drug Administration. ITPR1 Antibody Negative BN Reference Range: Negative This test was developed and its performance characteristics determined by [facility]. It has not been cleared or approved by the Food and Drug Administration. AMPA-R1 Antibody Negative BN Reference Range: Negative This test was developed and its performance characteristics determined by [facility]. It has not been cleared or approved by the Food and Drug Administration. AMPA-R2 Antibody Negative BN Reference Range: Negative This test was developed and its performance characteristics determined by [facility]. It has not been cleared or approved by the Food and Drug Administration. PERI-B-R Antibody Negative BN Reference Range: Negative This test was developed and its performance characteristics determined by [facility]. It has not been cleared or approved by the Food and Drug Administration. NMDA-R Antibody Negative BN Reference Range: Negative This test was developed and its performance characteristics determined by [facility]. It has not been cleared or approved by the Food and Drug Administration. GAD65 Antibody Negative BN Reference Range: Negative This test was developed and its performance characteristics determined by [facility]. It has not been cleared or approved by the Food and Drug Administration. CASPR2 Antibody,Cell-based IFA Negative BN Reference Range: Negative This (more content not included)... Performed By: #### 1 [id number] #### [facility] [address] [place] [address] Lactic Acidon 12-16-2024 Lactic Acid Lvl 2.4 mmol/L High 0.5-2.2 [facility] Comment on above: Performed By: #### 2 [id number] #### [facility] [address] [place] [address] Lipase Levelon 12-16-2024 Lipase [Catalytic activity/Vol] 10 U/L Low 13-58 [facility] Comment on above: Performed By: #### 2 [id number] #### [facility] [address] [place] [id number] No Panel InformationOrdered By: ANGPROCESSSERVER MICROBIOLOGY on 12-16-2024 Blood Culture Charcoal No growth at 1 da y. Final to follow at 7 days. [facility] Blood Culture Charcoal No growth at 1 da y. Final to follow at 7 days. [facility] Pre-Arrival Noteon Pre-Arrival Note Pre-Arrival Note Pre-Arrival Summary Name: , maria e Current Date: 12/16/2024 21:46:17 EDT Gender: Female Date of : Age: 29 Pre-Arrival Type: EMS ETA: 12/16/2024 22:06:00 EDT Primary Care Physician: Presenting Problem: abd pain Pre-Arrival User: Eric Winters RN Referring Source: Location: [place] Completion Date/Time: 12/16/2024 21:36:00 [facility] Emergency Department Pre-Hospital Report Form Vital Signs: Pre-Hospital Report: Treatment in Route: Response to Treatment: Misc. Issues: Normal [facility] SEROLOGYOrdered By: Nikhil Bourgeois on 12-16-2024 Beta HCG ( test) Ql Negative (12/16/24 10:47 PM) Normal [facility] Man Sero UA with Cult Rflxon 12-17-19 Type of Urine collection method Clean Catch Normal [facility] Comment on above: Performed By: #### 4 [id number] #### [facility] [address] [place] [address] eGFRon 12-16-2024 eGFR 120 mL/min/1.73 m2 Normal >=59 [facility] Comment on above: Performed By: #### 1 [id number] #### [facility] [address] [place] [address] ED Clinical Summaryon 2024 ED Clinical Summary ED Clinical Summary [address] [address] ED Clinical Summary Person Information Name: ROLA AGUILAR [facility] Age: 29 Years : 1995 Sex: Female Language: Honduran PCP: NONE, XXXX Marital Status: Single Visit Id: Visit Reason: Dizziness; Buttock [id number]; Abdominal pain; Anxiety; DIZZINESS, ABD PAIN Speciality: Acuity: 2 Enc Type: Emergency Med Service: Emergency Arrival: 12/15/2024 14:44:51 Discharge: 12/15/2024 16:59:22 LOS: 000 02:15 Checkin: 12/15/2024 14:44:51 Checkout: 12/15/2024 16:59:22 Dispo Type: Home (Routine DC) EVENTS: Event Name Event Status Request Date/Time Start Date/Time Complete Date/Time Arrive Complete 12/15/2024 14:44:51 12/15/2024 14:44:51 12/15/2024 14:44:51 Document Home Meds Request 12/15/2024 14:44:51 Triage Complete 12/15/2024 14:44:51 12/15/2024 14:57:25 12/15/2024 14:57:25 Registration Complete 12/15/2024 14:47:25 12/15/2024 14:47:25 12/15/2024 14:47:25 Reg Complete Request 12/15/2024 14:47:25 Reg Bed Request Complete 12/15/2024 14:47:25 12/15/2024 14:47:25 12/15/2024 14:47:25 Bed Assign Complete 12/15/2024 14:51:07 12/15/2024 14:51:07 12/15/2024 14:51:07 Dr Exam Complete 12/15/2024 14:51:07 12/15/2024 14:53:10 12/15/2024 14:53:10 RN Exam Complete 12/15/2024 14:51:07 12/15/2024 15:26:46 12/15/2024 15:26:46 Registration Request 12/15/2024 14:53:10 Dr Exam Complete 12/15/2024 14:53:55 12/15/2024 14:53:55 12/15/2024 14:53:55 EKG Complete 12/15/2024 14:54:46 12/15/2024 15:01:37 30 Day Return Request 12/15/2024 14:57:25 Meds Admin Complete 12/15/2024 15:25:52 12/15/2024 15:33:57 Meds Admin Complete 12/15/2024 15:28:08 12/15/2024 15:33:58 Discharge Complete 12/15/2024 16:43:43 12/15/2024 16:59:29 12/15/2024 16:59:29 Transfer Complete 12/15/2024 16:59:29 12/15/2024 16:59:29 12/15/2024 16:59:29 ADDRESS: [address] [place] [id number] PHYS DOC NOTES: MEDICAL INFORMATION: Prescriptions Given: New Medications [facility]/pharmacy #[id number], [address] [place] [id number], [phone] lorazepam (Ativan 1 mg Tab) 1 Tablets By Mouth 3 times a day as needed for anxiety. Refills: 0. Medications to Continue with No Changes Other Medications amoxicillin-clavulana te (Augmentin 875 mg oral tablet) 1 Tablets By Mouth every 12 hours for 10 Days. Refills: 0. busPIRone (busPIRone 10 mg Tab) 1 Tablets By Mouth 2 times a day. dicyclomine (Bentyl 10 mg Cap) 2 Capsules By Mouth 4 times a day. Refills: 0. levetiracetam (Keppra 250 mg Tab) 2 Tablets By Mouth 2 times a day. Refills: 1. magnesium glycinate (magnesium glycinate 100 mg oral capsule) 2 Capsules By Mouth every day. Refills: 0. naloxone (naloxone 4 mg/0.1 mL nasal spray) 4 Milligram Nasal Inhalation As Directed. for suspected overdose symptoms. Refills: 0. ondansetron (ondansetron 4 mg Dis Tab) 1 Tablets By Mouth every 6 hours. Refills: 0. ondansetron (Zofran ODT 4 mg Tab-Dis) 1 Tablets By Mouth every 6 hours. Refills: 0. oxycodone (oxyCODONE 5 mg Cap) 1 Capsules By Mouth every 6 hours as needed for pain. Refills: 0. oxycodone (oxyCODONE 5 mg Tab) 1 Tablets By Mouth every 6 hours as needed as needed for pain. Refills: 0. promethazine (promethazine 25 mg Tab) 1 Tablets By Mouth every 6 hours as needed as needed for nausea/vomiting. Refills: 0. PATIENT EDUCATION INFORMATION: Instructions: Generalized Anxiety Disorder, Adult Follow up: With: Address: When: XXXX NONE , [place] In 3 days 12/18/2024 DIAGNOSIS: Anxiety; Pain syndrome, chronic Normal [facility] ED Note-Physicianon 12-16-19 ED Note-Physician ED Note-Physician Basic Information Time Seen: Puneet Proctor PA-C 12/15/2024 14:53 Chief Complaint pt c/o abd pain that she states shes had for 1 year, worsening today. Pt states she has a bed sore on her tailbone, ileostomy and a fistula. Pt also reports dizziness and anxiety. snet by neurologist. History of Present Illness 29-year-old female comes to the ED for controlled pain and nausea. She has extensive past medical history, most notably for Crohn's disease with perirectal abscess and anxiety. She is currently on antibiotics for abscess and fistula. She has been seen multiple times for this. Admission was previously recommended but the patient has declined wishing to pursue outpatient therapy. She presents today for control of her breakthrough pain and anxiety. She recently had newly diagnosed seizure disorder. She was follow-up with her neurologist today. She was very anxious on exam, and there was concern for breakthrough seizure given her high levels of stress and thus she comes to the ED for symptom control. She took an oxycodone earlier today as well as a dose of BuSpar and her Keppra. Review of Systems A 10 point review of systems is negative except as noted above. Medical and Surgical History: Reviewed and noted Social history: Lives at home Tobacco: Denies Physical Exam Vitals & Measurements T: 36.5 ???C(Oral) HR: 150(Peripheral) RR: 18 BP: 115/83 SpO2: 98% HT: 167 cm WT: 50.5 kg BMI: 18.11 Nurses notes and vital signs reviewed and patient is not hypoxic. General: Awake and alert. Anxious Skin: Warm, dry. Head: Atraumatic. Neck: No JVD. Eye: Normal conjunctiva. Ears, Nose, Mouth, and Throat: Moist mucous membranes. Cardiovascular: Strong distal pulses. Tachycardic Chest wall: Respiratory: Respirations are nonlabored. Back: Normal range of motion. Musculoskeletal: Normal ROM with no gross deformity. Gastrointestinal: Generalized tenderness without focal finding. Well-appearing ileostomy. No guarding rebound or rigidity. No distention Urological: Neurological: Awake and alert. No focal deficits. Follows commands. Psychiatric: Cooperative. Anxious Medical Decision Making Patient presents with acute on chronic pain and anxiety. She is medicated with morphine and Ativan. With serial examination she states she feels much improved. She does have tachycardia but this has improved throughout her ED stay. Chart review does show baseline tachycardia. She is requesting something for anxiety at home. She already has oxycodone. Will give her a short supply of Ativan, and she is counseled regarding benzodiazepines and concurrent opioid use. She is to follow-up with her various specialist. Patient was encouraged to return to the ED if symptoms worsen or change. Assessment/Plan Anxiety (F41.9: Anxiety disorder, unspecified) Pain syndrome, chronic (G89.4: Chronic pain syndrome) Orders: lorazepam, 2 mg = 2 tab(s), Tab, Oral, Once, Stop date 12/15/24 15:25:00 EDT, STAT, Start date 12/15/24 15:25:00 EDT, 12/15/24 15:25:00 EDT lorazepam, 1 mg = 1 tab(s), Oral, TID, PRN for anxiety, # 6 tab(s), Refills(s) 0, Pharmacy: [facility]/pharmacy #[id number], 167, cm, 12/15/24 14:57:00 EDT, Height/Length Dosing, 50.5, kg, 12/15/24 14:57:00 EDT, Weight Dosing morphine, 4 mg = 1 mL, Injection, IV Push, Once, Stop date 12/15/24 15:27:00 EDT, STAT, Start date 12/15/24 15:27:00 EDT, 12/15/24 15:27:00 EDT ondansetron, 4 mg = 2 mL, Injection, IV Push, Once, Stop date 12/15/24 15:27:00 EDT, STAT, Start date 12/15/24 15:27:00 EDT, 12/15/24 15:27:00 EDT Disposition Plan Patient Discharge Condition Disposition: Discharged home Condition: Improved and stable Counseled: Patient and/or family were counseled to workup, results, treatment plan and follow-up recommendations Discharge Prescription List Prescriptions Ativan 1 mg Tab, 1 mg= 1 tab(s), Oral, TID, PRN Follow-up With When Contact Information XXXX NONE In 3 days 12/18/2024 EDT [place] Additional Instructions: Patient Education Generalized Anxiety Disorder, Adult Attestation I performed a substantive part of the MDM during the patient???s E/M visit. I personally made or approved the documented management plan and acknowledge its risk of complications. (Independent Interpretation) My (EKG/X-Ray/US/CT) interpretation as above. (Discussion) Management/test interpretation discussed with APC. This report was transcribed using voice recognition software. Every effort was made to ensure accuracy, however, inadvertently computerized sulfur chloride operator mistakes may be present. Appropriate healthcare PPE was used in evaluating this patient. Problem List/Past Medical History Ongoing Anxiety disorder due to medical condition Bipolar depression Crohn's disease Generalized anxiety disorder H/O psoriasis Mechanical deep vein thrombosis (DVT) prophylaxis in place Pressure ulcer of coccygeal region, stage 3 Pressure ulcer of left buttock, stage 3 Pressure ulcer of right butt (more content not included)... Normal [facility] Comment on above: Result Comment: Elec tronically Signed By: Puneet Proctor PA-C\.br\Date and Time Signed: 12/15/24 17:00 EDT\.br\Electronically Co-Signed By: Elliot Macias DO\.br\Date and Time Co-Signed: 12/15/24 17:06 EDT ED Patient Summaryon 025 ED Patient Summary ED Patient Summary [place] [id number] Patient Discharge Instructions Person Information Name: PEDRO LUIS AGUILAREN Ed Age: 29 Years Arrival Date: 12/15/2024 14:44:51 Discharge Diagnosis: Anxiety; Pain syndrome, chronic Primary Care Physician: NONE, XXXX Provider Information Primary Provider: Elliot Macias DO Advanced Implementation Lead:Puneet Proctor PA-C The exam and treatment you received in the Emergency Department were for an urgent problem and are not intended as complete care. It is important that you follow up with a doctor, nurse practitioner, or physician???s back office medical assistant for ongoing care. If your symptoms become [...] XXXX NONE , [place] In 3 days 12/18/2024 In the event that this physician does not participate in your insurance network, please consult with your insurance company to find a nearby participating provider. Patient Education Materials: Generalized Anxiety Disorder, Adult A MESSAGE TO ALL PATIENTS REGARDING OPIOIDS PRESCRIPTION OPIOIDS: WHAT YOU NEED TO KNOW Prescription opioids can be used to help relieve zkzjgqtn-kn-hzcieg pain and are often prescribed following a [...] guidance from the Food and Drug Administration (www.fda.gov/Drugs/Re sourcesForYou). ??? Visit www.cdc.gov/drugoverd ose to learn about the risks of opioids abuse and overdose. ??? If you believe you may be struggling with addiction, tell your health career representative and ask for guidance or call [facility]???S National He (more content not included)... Normal [facility] C Urineon 12-14-2024 Bacteria identified Cx Nom (U) Microbiology PROCEDURE: Urine Culture [R1] SOURCE: U CleanCatch BODY SITE: COLLECTED DATE/TIME: 12/12/2024 20:24 EDT RECEIVED DATE/TIME: 12/12/2024 21:38 EDT START DATE/TIME: 12/12/2024 21:38 EDT FREE TEXT SOURCE: Lisandro Mishra, Carolyn Mcmahon M.D., Carolyn Drake FINAL REPORTS Final Report [] Verified Date/Time: 12/14/2024 06:50 EDT 1,000 cfu/ml Mixed skin contaminants Performing Locations R1: This test was performed at: [facility], [address] [place] [address], [id number] , [place], [place] Comment on above: Performed By: #### 2 [id number] #### [facility] [address] [place] [id number] Abdomen/Pelvis w/ Contras ton 12-13-2024 CT Abdomen/Pelvis w/ Contrast Exam Date/Time: 12/12/2024 21:18 EDT Reason for Exam: ABDOMINAL PAIN, ACUTE, NONLOCALIZED;Other (please specify) Report IMPRESSION: COLITIS AND TERMINAL ILEITIS PERSISTS BUT APPEARS SLIGHTLY IMPROVED WHEN COMPARED TO PRIOR EXAMINATION. INTERVAL PROGRESSION OF PERIANAL ABSCESS/FISTULA NOW EXTENDING TO THE SKIN SURFACE. HEPATIC STEATOSIS AND HEPATOMEGALY. BORDERLINE SPLENOMEGALY. NO DEVELOPMENT OF OPACITIES OF THE RIGHT LUNG BASE MOST LIKELY REPRESENTING PNEUMONIA. EXAM: CT Abdomen/Pelvis w/ Contrast History: Abdominal pain. History of Crohn's disease with anal fistula. Technique: Multiple contiguous axial images were obtained of the abdomen and pelvis from the level of the lung bases through the ischial tuberosities with contrast. Multiplanar reformats were obtained. Delayed images were obtained. Unless otherwise stated, incidental findings identified in this report do not require routine follow-up imaging. Comparison: CT abdomen pelvis 11/22/2024 Findings: Interval development of multiple small opacities of the right lower lobe posteriorly. The largest of these measures approximately 12 mm. Hepatic steatosis. The liver is mildly enlarged measuring approximately 19.5 cm in craniocaudal length. The gallbladder, stomach, pancreas, and adrenal glands are within normal limits. The spleen is at the upper limits of normal in size measuring approximately 13.5 cm in greatest dimension. The kidneys enhance uniformly. No urinary tract calculi or hydronephrosis. Urinary bladder is poorly distended limiting its evaluation. The uterus is present.. Abdominal aorta is nonaneurysmal. No retroperitoneal or abdominal/pelvic lymphadenopathy. There is wall thickening and pericolonic inflammation of nearly the entire colon, sparing the cecum. Wall thickening of the terminal ileum with adjacent inflammation is not significantly changed. Perirectal abscess/fistula is again identified. The Report fistula now extends to the skin surface posteriorly to the left of midline. No acute osseous abnormality. All CT scans at this facility use dose modulation, iterative reconstruction, and/or weight based dosing when appropriate to reduce radiation dose to as low as reasonably achievable. Technical Comments: GFR (mL/min/1/73m2) na Contrast: Isovue 300 Contrast amount in ml's: 100.00 Ordering Provider: Carolyn Mcmahon FINAL REPORT Dictated: 12/13/2024 8:44 am Aldo Ken DO Signed (Electronic Signature): 12/13/2024 8:44 am Signed by: Aldo Ken DO Transcribed by: CLARICE Technologist: ALEC Pemberton [facility] ED Clinical Summaryon 2024 ED Clinical Summary ED Clinical Summary [address] [address] ED Clinical Summary Person Information Name: ROLA AGUILAR [facility] Age: 29 Years : 1995 Sex: Female Language: Honduran PCP: NONE, XXXX Marital Status: Single Visit Id: Visit Reason: Medical problem reevaluation; Abdominal problem; Abdominal pain; ABDOMINAL PAIN, HEADACHE, DIZZY Speciality: Acuity: 2 Enc Type: Emergency Med Service: Emergency Arrival: 12/12/2024 19:45:41 Discharge: 12/13/2024 03:18:04 LOS: 000 07:33 Checkin: 12/12/2024 19:45:41 Checkout: 12/13/2024 03:18:04 Dispo Type: Home (Routine DC) EVENTS: Event Name Event Status Request Date/Time Start Date/Time Complete Date/Time Arrive Complete 12/12/2024 19:45:41 12/12/2024 19:45:41 12/12/2024 19:45:41 Document Home Meds Request 12/12/2024 19:45:41 Triage Complete 12/12/2024 19:45:41 12/12/2024 19:58:36 12/12/2024 19:58:36 Registration Complete 12/12/2024 19:47:51 12/12/2024 19:47:51 12/12/2024 19:47:51 Reg Complete Request 12/12/2024 19:47:51 Reg Bed Request Complete 12/12/2024 19:47:51 12/12/2024 19:47:51 12/12/2024 19:47:51 30 Day Return Request 12/12/2024 19:58:37 Bed Assign Complete 12/12/2024 19:58:47 12/12/2024 19:58:47 12/12/2024 19:58:47 Dr Exam Complete 12/12/2024 19:58:47 12/12/2024 20:01:58 12/12/2024 20:01:58 RN Exam Complete 12/12/2024 19:58:47 12/12/2024 20:20:40 12/12/2024 20:20:40 Registration Request 12/12/2024 20:01:58 CT Complete 12/12/2024 20:15:54 12/12/2024 20:39:26 12/12/2024 21:18:24 Meds Admin Complete 12/12/2024 20:15:54 12/12/2024 20:32:46 Pending Labs Complete 12/12/2024 20:15:54 12/12/2024 20:30:12 12/12/2024 20:58:12 Lab Complete 12/12/2024 20:15:54 12/12/2024 20:58:12 Pending Labs Complete 12/12/2024 20:16:06 12/12/2024 20:37:30 Lab Complete 12/12/2024 20:16:06 12/12/2024 20:37:30 Urine Collect Complete 12/12/2024 20:16:06 12/12/2024 20:37:30 Pending Labs Complete 12/12/2024 20:30:13 12/12/2024 20:30:13 12/12/2024 20:58:12 Lab Complete 12/12/2024 20:30:13 12/12/2024 20:30:13 12/12/2024 20:58:12 Meds Admin Complete 12/12/2024 20:36:05 12/12/2024 20:56:20 Pending Labs Inlab 12/12/2024 20:39:08 12/12/2024 20:39:08 Lab Inlab 12/12/2024 20:39:08 12/12/2024 20:39:08 Meds Admin Complete 12/12/2024 23:45:30 12/13/2024 00:03:00 Pending Labs Complete 12/13/2024 00:29:25 12/13/2024 00:29:25 12/13/2024 00:29:25 Meds Admin Complete 12/13/2024 02:02:44 12/13/2024 02:27:59 Meds Admin Complete 12/13/2024 02:42:03 12/13/2024 02:44:14 Discharge Complete 12/13/2024 03:08:47 12/13/2024 03:18:11 12/13/2024 03:18:11 Meds Admin Complete 12/13/2024 03:14:50 12/13/2024 03:17:44 Transfer Complete 12/13/2024 03:18:11 12/13/2024 03:18:11 12/13/2024 03:18:11 ADDRESS: [address] [place] [id number] PHYS DOC NOTES: MEDICAL INFORMATION: Prescriptions Given: New Medications [facility]/pharmacy #[id number], [address] [place], [place] [id number], [phone] amoxicillin-clavulana te (Augmentin 875 mg oral tablet) 1 Tablets By Mouth every 12 hours for 10 Days. Refills: 0. Medications to Continue Taking That Have Changed [facility]/pharmacy #[id number], [address] [place], [place] [id number], [phone] START: oxycodone (oxyCODONE 5 mg Tab) 1 Tablets By Mouth every 6 hours as needed as needed for pain. Refills: 0. Other Medications START: oxycodone (oxyCODONE 5 mg Cap) 1 Capsules By Mouth every 6 hours as needed for pain. Refills: 0. Medications to Continue with No Changes Other Medications busPIRone (busPIRone 10 mg Tab) 1 Tablets By Mouth 2 times a day. dicyclomine (Bentyl 10 mg Cap) 2 Capsules By Mouth 4 times a day. Refills: 0. levetiracetam (Keppra 250 mg Tab) 2 Tablets By Mouth 2 times a day. Refills: 1. magnesium glycinate (magnesium glycinate 100 mg oral capsule) 2 Capsules By Mouth every day. Refills: 0. naloxone (naloxone 4 mg/0.1 mL nasal spray) 4 Milligram Nasal Inhalation As Directed. for suspected overdose symptoms. Refills: 0. ondansetron (ondansetron 4 mg Dis Tab) 1 Tablets By Mouth every 6 hours. Refills: 0. ondansetron (Zofran ODT 4 mg Tab-Dis) 1 Tablets By Mouth every 6 hours. Refills: 0. promethazine (promethazine 25 mg Tab) 1 Tablets By Mouth every 6 hours as needed as needed for nausea/vomiting. Refills: 0. PATIENT EDUCATION INFORMATION: Instructions: Colitis; Anorectal Abscess; Abdominal Pain, Adult Follow up: With: Address: When: Make sure to follow-up with your colorectal surgeon as discussed. Return to the emergency room if your pain gets worse, fever, vomiting or any new symptoms. In 3 days 12/16/2024 DIAGNOSIS: 1:Abdominal pain; 2:Crohn's colitis; 3:Anal abscess Normal [facility] ED Note-Physicianon 12-14-19 ED Note-Physician ED Note-Physician Basic Information Time Seen: Carolyn Mcmahon M.D. 12/12/2024 20:01 Chief Complaint Has ostomy right abdomen, 9/10 pain; pressure ulcer preventing from sitting History of Present Illness The patient is a 29-year-old female past medical history of Crohn's colitis who presented to the emergency room with abdominal pain. The patient has chronic abdominal pain, however her pain has gotten worse. The patient states the pain is around the stoma and radiates to the back as well as to the rectum. The patient states she has a pressure ulcers. She does have prolapse of her stoma and she is scheduled for revision surgery at the [facility] on January 08 as well as plastic surgery for her pressure ulcers. The patient states the pain has gotten worse. She reports nausea. She vomited yesterday. The patient states she has been taking Imodium and she has not had much output from her stoma. The patient denies any fever. She reports sweating chills. The patient states with her pain getting severe and her anxiety kicks in and she feels like she cannot get enough air. The patient states she was seen in the emergency room recently and the pain got better for sometimes and it got worse again. The patient denies any other associated symptoms. Review of Systems Additional ROS info: Except as noted in the above Review of Systems and in the History of Present Illness all other systems have been reviewed and are negative or noncontributory. Physical Exam Vitals & Measurements T: 36.8 ???C(Oral) HR: 122(Monitored) RR: 16 BP: 109/69 SpO2: 99% HT: 167.64 cm WT: 50.4 kg BMI: 17.93 General: alert, mild distress Skin: warm, dry Head: no trauma, normocephalic Neck: Trachea midline Eye: normal conjunctiva, sclera clear, EOMI, vision unchanged ENMT: Oral mucosa moist Cardiovascular: regular rate and rhythm Respiratory: Lungs CTA, respirations non labored, breath sounds equal Gastrointestinal: soft, non distended, moderate generalized tenderness, no guarding, normal bowel sounds, ileostomy on right side of the abdomen with prolapsed tissue. The outer rectal exam revealed macerated perirectal area wet with no active drainage. No erythema around it. There is an opening on the right buttocks with no drainage when try to milk it Extremities: no deformity, no trauma Neurological: Alert and oriented, speech normal, no focal neuro deficits Psychiatric: cooperative, affect anxious, Medical Decision Making MEDICAL DECISION MAKING Number and Complexity of Problems Differential Diagnosis: [] [facility] Data External documents reviewed: [] My EKG interpretation: [] My CT interpretation: [] My X-ray interpretation: [] My Ultrasound interpretation: [] Decision rules/scores evaluated: [] Discussed with: Dr. Isaac Treatment and Disposition ED Course: Patient presented with abdominal pain. She does have history of Crohn's colitis. Blood work reviewed. Her white count is normal. Patient has thrombocytosis which she has had in the past. The patient is afebrile. CT of the abdomen and pelvis shows colitis as on previous CAT scans. She does have intramuscular abscess of the anus. I recommended patient be transferred to [facility] and the patient refused. I discussed the case with Dr. Isaac who is covering for patient's colorectal surgeon who agrees with antibiotic and if the patient agrees for transfer he will accept the transfer. The patient does not want to be transferred nor admitted to the hospital. She wants to do the oral antibiotic and she will follow-up with her surgeon as an outpatient. The patient was given a dose of Zosyn in the emergency room. Will discharge patient home with prescription for Augmentin and oxycodone. She is instructed to return to the emergency room if her pain gets worse, fever, vomiting or any new symptoms. Shared decision making: [] Code status: [] Assessment/Plan 1. Abdominal pain (R10.9: Unspecified abdominal pain) 2. Crohn's colitis (K50.10: Crohn's disease of large intestine without complications) 3. Anal abscess (K61.0: Anal abscess) Orders: amoxicillin-clavulana te, = 1 tab(s), Oral, q12hr, X 10 day(s), # 20 tab(s), Refills(s) 0, Pharmacy: [facility]/pharmacy #[id number], 167.6, cm, 12/12/24 19:58:00 EDT, Height/Length Dosing, 50.4, kg, 12/12/24 19:58:00 EDT, Weight Dosing levetiracetam, 500 mg = 1 tab(s), Tab, Oral, Once, Stop date 12/13/24 2:41:00 EDT, STAT, Start date 12/13/24 2:41:00 EDT, 12/13/24 2:41:00 EDT lorazepam, 1 mg = 0.5 mL, Injection, IV Push, Once, Stop date 12/12/24 20:35:00 EDT, NOW, Start date 12/12/24 20:35:00 EDT, 12/12/24 20:35:00 EDT morphine, 4 mg = 1 mL, Injection, IV Push, Once, Stop date 12/12/24 23:45:00 EDT, STAT, Start date 12/12/24 23:45:00 EDT, 12/12/24 23:45:00 EDT morphine, 4 mg = 1 mL, Injection, IV Push, Once, Stop date 12/12/24 20:15:00 EDT, STAT, Start date 12/12/24 20:15:00 EDT, 12/12/24 20:15:00 EDT ondansetron, 4 mg = 2 mL, Injection (more content not included)... Normal [facility] Comment on above: Result Comment: Elec tronically Signed By: Lisandro Mishra, Carolyn Drake\.reese\Date and Time Signed: 12/13/24 04:31 EDT ED Patient Summaryon 025 ED Patient Summary ED Patient Summary [place] [address] Patient Discharge Instructions Person Information Name: ROLA AGUILAR Age: 29 Years Arrival Date: 12/12/2024 19:45:41 Discharge Diagnosis: 1:Abdominal pain; 2:Crohn's colitis; 3:Anal abscess Primary Care Physician: NONE, XXXX Provider Information Primary Provider: Carolyn Mcmahon M.D. Advanced Implementation Lead:None The exam and treatment you received in the Emergency Department were for an urgent problem and are not intended as complete care. It is important that you follow up with a doctor, nurse practitioner, or physician???s back office medical assistant for ongoing care. If your symptoms become [...] When: Make sure to follow-up with your colorectal surgeon as discussed. Return to the emergency room if your pain gets worse, fever, vomiting or any new symptoms. In 3 days 12/16/2024 In the event that this physician does not participate in your insurance network, please consult with your insurance company to find a nearby participating provider. Patient Education Materials: Colitis; Anorectal Abscess; Abdominal Pain, Adult A MESSAGE TO ALL PATIENTS REGARDING OPIOIDS PRESCRIPTION OPIOIDS: WHAT YOU NEED TO KNOW Prescription opioids can be used to help relieve ecbzlogm-ic-vlopxb pain and are often prescribed following a [...] guidance from the Food and Drug Administration (www.fda.gov/Drugs/Re sourcesForYou). ??? Visit www.cdc.gov/drugoverd ose to learn about the risks of opioids abu (more content not included)... Normal [facility] BMPon 12-12-2024 Anion gap [Moles/Vol] 14 mmol/L Normal 6-16 [facility] Comment on above: Performed By: #### 2 [id number] #### [facility] [address] [place] [address] Calcium [Mass/Vol] 9.0 mg/dL Normal 8.9-11.1 [facility] Comment on above: Performed By: #### 2 [id number] #### [facility] [address] [place] [address] Chloride [Moles/Vol] 102 mmol/L Normal 101-[address] [facility] Comment on above: Performed By: #### 2 [id number] #### [facility] [address] [place] [address] CO2 [Moles/Vol] 27 mmol/L Normal 21-31 [facility] Comment on above: Performed By: #### 2 [id number] #### [facility] [address] [place] [address] Creatinine [Mass/Vol] 0.6 mg/dL Normal 0.5-1.3 [facility] Comment on above: Performed By: #### 2 [id number] #### [facility] [address] [place] [address] Glucose [Mass/Vol] 118 mg/dL Normal 55-199 [facility] Comment on above: Performed By: #### 2 [id number] #### [facility] [address] [place] [address] Potassium [Moles/Vol] 3.8 mmol/L Normal 3.5-5.3 [facility] Comment on above: Performed By: #### 2 [id number] #### [facility] [address] [place] [address] Sodium [Moles/Vol] 139 mmol/L Normal 135-145 [facility] Comment on above: Performed By: #### 2 [id number] #### [facility] [address] [place] [address] Urea nitrogen [Mass/Vol] 9 mg/dL Normal 5-21 [facility] Comment on above: Performed By: #### 2 [id number] #### [facility] [address] [place] [address] Urea nitrogen/Creatinine [Mass ratio] 15 No Units Normal 10-20 [facility] Comment on above: Performed By: #### 2 [id number] #### [facility] [address] [place] [address] CBC w/ Auto Diffon 5 Basophils/100 WBC (Bld) 0.3 % Normal 0.0-2.0 [facility] Comment on above: Performed By: #### 2 [id number] #### [facility] [address] [place] [address] Basophils/Leukocytes Auto (Bld) [Pure # fraction] 0.0 E9/L Normal 0.0-0.2 [facility] Comment on above: Performed By: #### 2 [id number] #### [facility] [address] [place] [address] Eosinophils (Bld) [#/Vol] 0.1 E9/L Normal 0.0-0.5 [facility] Comment on above: Performed By: #### 2 [id number] #### [facility] [address] [place] [address] Eosinophils/100 WBC (Bld) 1.8 % Normal 0.0-8.0 [facility] Comment on above: Performed By: #### 2 [id number] #### [facility] [address] [place] [address] Erythrocyte distribution width (RBC) [Ratio] 16.7 % High 10.9-14.2 [facility] Comment on above: Performed By: #### 2 [id number] #### [facility] [address] [place] [address] Hematocrit (Bld) [Volume fraction] 34.4 % Normal 34.0-46.0 [facility] Comment on above: Performed By: #### 2 [id number] #### [facility] [address] [place] [address] Hemoglobin (Bld) [Mass/Vol] 11.5 g/dL Low 12.0-16.0 [facility] Comment on above: Performed By: #### 2 [id number] #### [facility] [address] [place] [address] Lymphocytes (Bld) [#/Vol] 1.1 E9/L Normal 1.0-4.0 [facility] Comment on above: Performed By: #### 2 [id number] #### [facility] [address] [place] [address] Lymphocytes/100 WBC (Bld) 13.4 % Low 14.0-50.0 [facility] Comment on above: Performed By: #### 2 [id number] #### [facility] [address] [place] [address] MCH (RBC) [Entitic mass] 29.3 pg Normal 27.0-34.0 [facility] Comment on above: Performed By: #### 2 [id number] #### [facility] [address] [place] [address] MCHC (RBC) [Mass/Vol] 33.3 g/dL Normal 31.4-36.0 [facility] Comment on above: Performed By: #### 2 [id number] #### [facility] [address] [place] [address] MCV (RBC) [Entitic vol] 88.2 fL Normal 80.0-100.0 [facility] Comment on above: Performed By: #### 2 [id number] #### [facility] [address] [place] [address] Monocytes (Bld) [#/Vol] 1.0 E9/L Normal 0.2-1.0 [facility] Comment on above: Performed By: #### 2 [id number] #### [facility] [address] [place] [address] Neutrophils (Bld) [#/Vol] 5.7 E9/L Normal 2.0-7.5 [facility] Comment on above: Performed By: #### 2 [id number] #### [facility] [address] [place] [address] Neutrophils/100 WBC (Bld) 72.2 % Normal 36.0-75.0 [facility] Comment on above: Performed By: #### 2 [id number] #### [facility] [address] [place] [address] Platelet 636.0 E9/L High 150.0-500.0 [facility] Comment on above: Performed By: #### 2 [id number] #### [facility] [address] [place] [address] Platelet mean volume (Bld) [Entitic vol] 6.7 fL Normal 6.4-10.8 [facility] Comment on above: Performed By: #### 2 [id number] #### [facility] [address] [place] [address] RBC (Bld) [#/Vol] 3.9 E12/L Low 4.3-5.9 [facility] Comment on above: Performed By: #### 2 [id number] #### [facility] [address] [place] [address] WBC corrected for nucl RBC Auto (Bld) [#/Vol] 7.9 E9/L Normal 4.0-11.0 [facility] Comment on above: Performed By: #### 2 [id number] #### [facility] [address] [place] [address] CHEMISTRYOrdered By: SYSTEM SYSTEM on 12-12-2024 Albumin [Mass/Vol] 2.9 g/dL Low 3.3 - 5.0 gm/dL Rem[facility] Chem Albumin/Globulin [Mass ratio] 0.8 {ratio} Low 1.1 - 2.2 [facility] ALP [Catalytic activity/Vol] 161 [iU]/d High 21 - 98 Int._Unit/L [facility] Chem ALT No additional P-5'-P [Catalytic activity/Vol] 9 [iU]/d Normal 6 - 46 Int._Unit/L [facility] Anion gap [Moles/Vol] 14 mmol/L Normal 6 - 16 mEq/L R emisol Chem AST [Catalytic activity/Vol] 10 [iU]/d Normal 5 - 43 Int._Unit/L [facility] Bilirubin [Mass/Vol] 0.4 mg/dL Normal 0.0 - 1 .1 mg/dL [facility] Bilirubin.direct [Mass/Vol] 0.2 mg/dL Normal 0.0 - 0.4 mg/dL [facility] Bilirubin.indirect [Mass or moles/Vol] 0.2 mg/dL Normal 0.1 - 0.9 mg/dL [facility] Calcium [Mass/Vol] 9.0 mg/dL Normal 8.9 - 11. 1 mg/dL [facility] Chloride [Moles/Vol] 102 mmol/L Normal 101 - 1 11 mmol/L [facility] CO2 [Moles/Vol] 27 mmol/L Normal 21 - 31 mmol/L Remis ol Chem Creatinine [Mass/Vol] 0.6 mg/dL Normal 0.5 - 1.3 mg/dL [facility] eGFR 124 mL/min/1.73 m2 Normal >=59mL/mi n/1.7 3 m2 [facility] Globulin (S) [Mass/Vol] 3.7 g/dL Normal 1.4 - 4.0 gm/dL [facility] Glucose [Mass/Vol] 118 mg/dL Normal 55 - 199 mg/dL Re misol Chem Lipase [Catalytic activity/Vol] 14 U/L Normal 13 - 58 unit/L [facility] Magnesium [Mass/Vol] 1.8 mg/dL Normal 1.3 - 2 .4 mg/dL [facility] Potassium [Moles/Vol] 3.8 mmol/L Normal 3.5 - 5.3 mmol/L [facility] Protein [Mass/Vol] 6.6 g/dL Normal 6.0 - 7.8 gm/dL [facility] Sodium [Moles/Vol] 139 mmol/L Normal 135 - 145 mmol/L [facility] Urea nitrogen [Mass/Vol] 9 mg/dL Normal 5 - 21 mg/dL [facility] Urea nitrogen/Creatinine [Mass ratio] 15 mg/mg Normal 10 - 20 [facility] COAGULATIONOrdered By: Shashi Bourgeois on 12-12-2024 aPTT Coag (PPP) [Time] 31.7 s Normal 25.1 - 36.5 second(s) [facility] Auto Coag Comment on above: Interpretive Data: José jannethgold 15 days - 4 weeks 1 - 5 months 6 - 11 months 1 - 5 years 6 - 10 years 11 - 17 years PTT Mean: 35.4 (27.6-45.6) Mean: 33.5 (24.8-40.7) Mean: 32.4 (25.1-40.7) Mean: 31.6 (24.0-39.2) Mean: 31.6 (26.9-38.7) Mean: 31.0 (24.6-38.4) Pediatric Reference ranges were obtained from a study by leonel Vinson prepared from 1437 samples obtained at 7 different centers using the same coagulation reagent and instrumentation as [facility]. Currently there are no coagulation studies available worldwide for children to 14 days, and no normal ranges. Heparin therapeutic range (represented by Anti-Factor Xa activity of 0.2 - 0.4 U/mL) corresponds to PTT of 56.6 - 109.0 sec. INR Coag (PPP) [Relative time] 1.14 {INR} Invalid Interpretation Code [facility] Auto Coag Comment on above: Interpretive Data: I NR results are specifically intended to assess patients stabilized on long-term Anticoagulation therapy suggested INR s Less Intensive Anticoagulation 2.0 3.0 Conventional Range 3.0 4.5 PT Coag (PPP) [Time] 12.8 s High 9.4 - 1 2.5 second(s) [facility] Auto Coag Comment on above: Interpretive Data: 1 5 days - 4 weeks 1 - 5 months 6 -11 months 1-5 years 6-10 years 11 -17 years Mean: 11.2 (9.5-12.6) Mean: 11.0 (9.7-12.8) Mean: 11.0 (9.8-13.0) Mean: 11.3 (9.9-13.4) Mean: 11.7 (10.0-14.6) Mean: 11.8 (10.0 - 14.1) Pediatric Reference ranges were obtained from a study by Charli Wentzville, et al. prepared from 1437 samples obtained at 7 different centers using the same coagulation reagent and instrumentation as [facility]. Currently there are no coagulation studies available worldwide for children to 14 days, and no normal ranges. HEMATOLOGYOrdered By: SYSTEM SYSTEM on 12-12-2024 Basophils/100 WBC (Bld) 0.3 % Normal 0.0 - 2.0 % Rem[facility] Heme Basophils/Leukocytes Auto (Bld) [Pure # fraction] 0.0 E9/L Normal 0.0 - 0.2 E9/L [facility] Eosinophils (Bld) [#/Vol] 0.1 E9/L Normal 0.0 - 0.5 E9/L [facility]e Eosinophils/100 WBC (Bld) 1.8 % Normal 0.0 - 8.0 % [facility] Erythrocyte distribution width (RBC) [Ratio] 16.7 % High 10.9 - 14.2 % [facility] Hematocrit (Bld) [Volume fraction] 34.4 % Normal 34.0 - 46.0 % [facility] Hemoglobin (Bld) [Mass/Vol] 11.5 g/dL Low 12.0 - 16.0 gm/dL [facility] Lymphocytes (Bld) [#/Vol] 1.1 E9/L Normal 1.0 - 4.0 E9/L [facility] Lymphocytes/100 WBC (Bld) 13.4 % Low 14.0 - 50.0 % [facility] MCH (RBC) [Entitic mass] 29.3 pg Normal 27.0 - 34.0 pg Rem[facility]e MCHC (RBC) [Mass/Vol] 33.3 g/dL Normal 31.4 - 36.0 gm/dL [facility] MCV (RBC) [Entitic vol] 88.2 fL Normal 80.0 - 100.0 fL [facility] Monocytes (Bld) [#/Vol] 1.0 E9/L Normal 0.2 - 1.0 E9/L [facility] Monocytes/100 WBC (Bld) 12.3 % Normal 4.0 - 14.0 % [facility] Neutrophils (Bld) [#/Vol] 5.7 E9/L Normal 2.0 - 7.5 E9/L [facility] Neutrophils/100 WBC (Bld) 72.2 % Normal 36.0 - 75.0 % [facility] Platelet 636.0 E9/L High 150.0 - 500.0 E9/L [facility] Platelet mean volume (Bld) [Entitic vol] 6.7 fL Normal 6.4 - 10.8 fL [facility] RBC (Bld) [#/Vol] 3.9 E12/L Low 4.3 - 5.9 E12/L [facility] WBC corrected for nucl RBC Auto (Bld) [#/Vol] 7.9 E9/L Normal 4.0 - 11.0 E9/L [facility] Hep Func Panelon 12-12-2024 Albumin [Mass/Vol] 2.9 g/dL Low 3.3-5.0 [facility] Comment on above: Performed By: #### 2 [id number] #### [facility] [address] [place] [address] Albumin/Globulin (S) [Mass conc ratio] 0.8 Low 1.1-2.2 [facility] Comment on above: Performed By: #### 2 [id number] #### [facility] [address] [place] [address] ALP [Catalytic activity/Vol] 161 Int._Unit/L High 21-98 [facility] Comment on above: Performed By: #### 2 [id number] #### [facility] [address] [place] [address] ALT No additional P-5'-P [Catalytic activity/Vol] 9 Int._Unit/L Normal 6-46 [facility] Comment on above: Performed By: #### 2 [id number] #### [facility] [address] [place] [address] AST [Catalytic activity/Vol] 10 Int._Unit/L Normal 5-43 [facility] Comment on above: Performed By: #### 2 [id number] #### [facility] [address] [place] [address] Bilirubin [Mass/Vol] 0.4 mg/dL Normal 0.0-1.[address] [facility] Comment on above: Performed By: #### 2 [id number] #### [facility] [address] [place] [address] Bilirubin.direct [Mass/Vol] 0.2 mg/dL Normal 0.0-0.4 [facility] Comment on above: Performed By: #### 2 [id number] #### [facility] [address] [place] [address] Bilirubin.indirect [Mass or moles/Vol] 0.2 mg/dL Normal 0.1-0.9 [facility] Comment on above: Performed By: #### 2 [id number] #### [facility] [address] [place] [address] Globulin (S) [Mass/Vol] 3.7 g/dL Normal 1.4-4.0 [facility] Comment on above: Performed By: #### 2 [id number] #### [facility] [address] [place] [address] Protein [Mass/Vol] 6.6 g/dL Normal 6.0-7.8 [facility] Comment on above: Performed By: #### 2 [id number] #### [facility] [address] [place] [address] Laboratory - Microbiology an d Antimicrobial susceptibilityOrdered By: Loni Manley on 12-12-2024 Bacteria identified Cx Nom (U) No growth to date [facility] Lipase Levelon 12-12-2024 Lipase [Catalytic activity/Vol] 14 U/L Normal 13-58 [facility] Comment on above: Performed By: #### 2 [id number] #### [facility] [address] [place] [address] Magnesiumon 12-12-2024 Magnesium [Mass/Vol] 1.8 mg/dL Normal 1.3-2.[address] [facility] Comment on above: Performed By: #### 2 [id number] #### [facility] [address] [place] [address] PT & PTTon 12-12-2024 aPTT Coag (PPP) [Time] 31.7 second(s) Normal 25.1-36.5 [facility] Comment on above: Result Comment: Para meter [...] the same coagulation reagent and instrumentation as [facility]. Currently there are no coagulation studies available worldwide for children to 14 days, and no normal ranges. Heparin therapeutic range (represented by Anti-Factor Xa activity of 0.2 - 0.4 U/mL) corresponds to PTT of 56.6 - 109.0 sec. Performed By: #### 1 [id number] #### [facility] [address] [place] [address] INR Coag (PPP) [Relative time] 1.14 {INR} Invalid Interpretation Code [facility] Comment on above: Result Comment: INR results are specifically intended to assess patients stabilized on long-term Anticoagulation therapy suggested INR???s ???Less Intensive Anticoagulation??? 2.0 ??? 3.0 Conventional Range 3.0 ??? 4.5 Performed By: #### 1 [id number] #### [facility] [address] [place] [address] PT Coag (PPP) [Time] 12.8 second(s) High 9.4-12.5 [facility] Comment on above: Result Comment: 15 d [...] the same coagulation reagent and instrumentation as [facility]. Currently there are no coagulation studies available worldwide for children to 14 days, and no normal ranges. Performed By: #### 1 [id number] #### [facility] [address] [place] [address] SEROLOGYOrdered By: Nikhil Bourgeois on 12-12-2024 HCG.beta subunit (U) [Moles/Vol] Negative Normal [facility] Man Sero U BetaHcg Qualon 12-12-2024 HCG.beta subunit (U) [Moles/Vol] Negative Normal [facility] Comment on above: Performed By: #### 2 [id number] #### [facility] [address] [place] [address] UA with Cult Rflxon 12-13-19 25 Bacteria Auto Ql (U) Trace Normal Trace Fish [facility] Comment on above: Performed By: #### 4 [id number] #### [facility] [address] [place] [address] Bilirubin Ql (U) Negative Normal Negative [facility] Comment on above: Performed By: #### 4 [id number] #### [facility] [address] [place] [address] Calcium oxalate crystals Computer assisted Ql (U) Present Abnormal [facility] Comment on above: Performed By: #### 4 [id number] #### [facility] [address] [place] [address] Clarity (U) Clear Normal Clear [facility] Comment on above: Performed By: #### 4 [id number] #### [facility] [address] [place] [address] Color (U) Yellow Normal Yellow [facility] Comment on above: Result Comment: Micr oscopic readings are only performed on those samples that meet specific criteria set forth by [facility]. Performed By: #### 4 [id number] #### [facility] [address] [place] [address] Epithelial cells.squamous Auto (Urine sed) [#/Area] 3-4 Invalid Interpretation Code [facility] Comment on above: Performed By: #### 4 [id number] #### [facility] [address] [place] [address] Glucose Ql (U) Negative Normal Negative [facility] Comment on above: Performed By: #### 4 [id number] #### [facility] [address] [place] [address] Hemoglobin Auto test strip (U) [Mass/Vol] Negative Normal Negative [facility] Comment on above: Performed By: #### 4 [id number] #### [facility] [address] [place] [address] Ketones Auto test strip Ql (U) Negative Normal Negative [facility] Comment on above: Performed By: #### 4 [id number] #### [facility] [address] [place] [address] Leukocyte esterase Auto test strip Ql (U) 25 Cristela/uL Normal Negative [facility] Comment on above: Performed By: #### 4 [id number] #### [facility] [address] [place] [address] Mucus Auto Ql (U) 2+ CD:[id number] Abnormal Negative F [facility] Comment on above: Performed By: #### 4 [id number] #### [facility] [address] [place] [address] Nitrite Auto test strip Ql (U) Negative Normal Negative [facility] Comment on above: Performed By: #### 4 [id number] #### [facility] [address] [place] [address] pH (U) 6.0 [pH] Invalid Interpretation Code 5.0-9.0 [facility] Comment on above: Performed By: #### 4 [id number] #### [facility] [address] [place] [address] Protein Ql (U) Trace Abnormal Negative [facility] Comment on above: Performed By: #### 4 [id number] #### [facility] [address] [place] [address] RBC Ql (U) 0-3 Normal 0-3 [facility] Comment on above: Performed By: #### 4 [id number] #### [facility] [address] [place] [address] Specific gravity (U) [Rel density] 1.026 Invalid Interpretation Code 1.005-1.030 [facility] Comment on above: Performed By: #### 4 [id number] #### [facility] [address] [place] [address] Urobilinogen (U) [Mass/Vol] Negative Normal Negative [facility] Comment on above: Performed By: #### 4 [id number] #### [facility] [address] [place] [address] WBC Auto (Urine sed) [#/Area] 6-15 Abnormal 0-5 [facility] Comment on above: Performed By: #### 4 [id number] #### [facility] [address] [place] [address] Type of Urine collection method Clean Catch Normal [facility] Comment on above: Performed By: #### 4 [id number] #### [facility] [address] [place] [address] URINALYSISOrdered By: SYSTEM SYSTEM on 12-12-2024 Bacteria Auto Ql (U) Trace /HPF Normal Trace/HPF [facility] UA Auto SS Bilirubin Ql (U) Negative Normal Negativemg/dL [facility] UA Auto SS Calcium oxalate crystals Computer assisted Ql (U) Present graded/HPF Invalid Interpretation Code [facility] UA Auto SS Clarity (U) Clear (12/12/24 8:24 PM) Normal Clear [facility] UA Auto SS Color (U) Yellow 1 (12/12/24 8:24 PM) Normal Yellow [facility] UA Auto SS Comment on above: Interpretive Data: M icroscopic readings are only performed on those samples that meet specific criteria set forth by [facility]. Epithelial cells.squamous Auto (Urine sed) [#/Area] 3-4 graded/HPF Invalid Interpretation Code [facility] UA Auto SS Glucose Ql (U) Negative Normal Negativemg/dL [facility] UA Auto SS Hemoglobin Auto test strip (U) [Mass/Vol] Negative Normal Negativemg/dL [facility] UA Aut o SS Ketones Auto test strip Ql (U) Negative Normal Negativemg/dL FT UA Auto SS Leukocyte esterase Auto test strip Ql (U) 25 Cristela/uL Cristela/uL Normal NegativeLeu/uL [facility] UA Auto SS Mucus Auto Ql (U) 2+ graded/LPF Invalid Interpretation Code Negativegraded /LPF [facility] UA Auto SS Nitrite Auto test strip Ql (U) Negative Normal Negativemg/dL FT UA Auto SS pH (U) 6.0 *NA* (12/12/24 8:24 PM) Invalid Interpretation Code 5.0 - 9.0 [facility] UA Auto SS Protein Ql (U) Trace mg/dL Invalid Interpretation Code Negativemg/dL [facility] UA Auto SS RBC Ql (U) 0-3 graded/HPF Normal 0-3graded/HPF [facility] UA Auto SS Specific gravity (U) [Rel density] 1.026 *NA* (12/12/24 8:24 PM) Invalid Interpretation Code 1.005 - 1.030 [facility] UA Auto SS Urobilinogen (U) [Mass/Vol] Negative Normal Negativemg/dL [facility] UA Auto SS WBC Auto (Urine sed) [#/Area] 6-15 graded/HPF Invalid Interpretation Code 0-5graded/HPF [facility] UA Auto SS URINALYSISOrdered By: Carolyn Mcmahno on 12-12-2024 UA Spec Desc Clean Catch (12/12/24 8:24 PM) Normal [facility] UA Auto SS eGFRon 12-12-2024 eGFR 124 mL/min/1.73 m2 Normal >=59 [facility] Comment on above: Performed By: #### 1 [id number] #### [facility] [address] [place] [address] ED Note-Physicianon 12-11-19 ED Note-Physician ED Note-Physician Basic Information Time Seen: Carolyn Mcmahon M.D. 12/09/2024 17:37 Chief Complaint pt reports headache and body pain starting yetserday into today. states has seizure hx so wanted to be safe. also reports abd pain due to CD. has sx next month to correct these issues. History of Present Illness The patient is a 29-year-old female past medical history of Crohn's disease status post ileostomy who presented to the emergency room with abdominal pain, nausea and diarrhea. The patient stated recently she was diagnosed with seizure and she is on Keppra. She is complaining of slight headache. The patient states since last night her abdominal pain is gotten worse. She states this is the same abdominal pain that she has had in the past but has gotten worse since last night. She points around the ileostomy for the pain radiating down to the lower aspect of the abdomen. The patient states she has increased of output from the ileostomy. The patient states she is having some bowel movement as well. She does have prolapse of her stoma and she is scheduled by her surgeon at [facility] for surgery. The patient denies any fever. She denies any chills. The patient denies any body aches but she states she feels tense. She reports nausea but no vomiting. She denies any sore throat. Denies any cough. Denies any runny nose. The patient denies any other associated symptoms. Review of Systems Additional ROS info: Except as noted in the above Review of Systems and in the History of Present Illness all other systems have been reviewed and are negative or noncontributory. Physical Exam Vitals & Measurements T: 37.7 ???C(Oral) HR: 107(Peripheral) RR: 18 BP: 120/82 SpO2: 97% HT: 167 cm WT: 52.3 kg BMI: 18.75 General: alert, mild distress Skin: warm, dry Head: no trauma, normocephalic Neck: Trachea midline, no tenderness, supple Eye: normal conjunctiva, sclera clear, PERRL, EOMI, vision unchanged ENMT: Oral mucosa moist, no pharyngeal erythema or exudate Cardiovascular: Tachycardia Respiratory: Lungs CTA, respirations non labored, breath sounds equal Gastrointestinal: soft, non distended, ileostomy in right side of the abdomen with prolapse, mild generalized tenderness, no guarding, normal bowel sounds Extremities: no deformity, no trauma Neurological: Alert and oriented, speech normal, no focal neuro deficits Psychiatric: cooperative, affect anxious Medical Decision Making MEDICAL DECISION MAKING Number and Complexity of Problems Differential Diagnosis: [] [facility] Data External documents reviewed: [] My EKG interpretation: [] My CT interpretation: [] My X-ray interpretation: [] My Ultrasound interpretation: [] Decision rules/scores evaluated: [] Discussed with: [] Treatment and Disposition ED Course: The patient presented with abdominal pain. She states this is the same as her previous abdominal pain that got worse last night. She reported increased output from her ileostomy and nausea. Blood work reviewed. The patient has hypomagnesemia. White count is normal. The patient was given 4 g of magnesium. She was given morphine for pain and IV fluid. She was given Zofran as well. The care of the patient was transitioned to Dr. Graham upon shift change to follow-up with admission to the hospital. Shared decision making: [] Code status: [] Assessment/Plan 1. Abdominal pain (R10.9: Unspecified abdominal pain) 2. Nausea (R11.0: Nausea) 3. Diarrhea (R19.7: Diarrhea, unspecified) 4. Hypomagnesemia (E83.42: Hypomagnesemia) Orders: famotidine, 20 mg = 2 mL, Soln-IV, IV Push, Once, Stop date 12/09/24 17:52:00 EDT, STAT, Start date 12/09/24 17:52:00 EDT, 12/09/24 17:52:00 EDT magnesium sulfate + Generic Diluent 100 mL, 4 gram = 100 mL, IV Piggyback, Once, Stop date 12/09/24 18:57:00 EDT, STAT, Start date 12/09/24 18:57:00 EDT, 25 mL/hr, Infuse over 4 hour(s), 12/09/24 18:57:00 EDT morphine, 4 mg = 1 mL, Injection, IV Push, Once, Stop date 12/09/24 17:52:00 EDT, STAT, Start date 12/09/24 17:52:00 EDT, 12/09/24 17:52:00 EDT morphine, 4 mg = 1 mL, Injection, IV Push, Once, Stop date 12/09/24 19:01:00 EDT, STAT, Start date 12/09/24 19:01:00 EDT, 12/09/24 19:01:00 EDT ondansetron, 4 mg = 2 mL, Injection, IV Push, Once, Stop date 12/09/24 17:52:00 EDT, STAT, Start date 12/09/24 17:52:00 EDT, 12/09/24 17:52:00 EDT Sodium Chloride 0.9% intravenous solution, 1,000 mL, Soln-IV, IV, Once, Stop date 12/09/24 17:52:00 EDT, STAT, Start date 12/09/24 17:52:00 EDT, Infuse over 61, minute(s) Sodium Chloride 0.9% intravenous solution, 1,000 mL, Soln-IV, IV, Once, Stop date 12/09/24 18:58:00 EDT, STAT, Start date 12/09/24 18:58:00 EDT, Infuse over 61, minute(s) Basic Metabolic Panel Beta hCG Qual CBC w/ Auto Diff ED Physician consult Hospitalist for continued care eGFR Extra Blue Tube Hepatic Function Panel Influenza A&B Ag Lipase Level Magnesium Level Rapid COVID Antigen (more content not included)... Normal [facility] Comment on above: Result Comment: Elec tronically Signed By: Alfred Graham DO\.br\Date and Time Signed: 12/10/24 01:29 EDT B hCG Qualon 12-09-2024 Beta HCG ( test) Ql Negative Normal [facility] Comment on above: Performed By: #### 2 [id number] #### [facility] [address] [place] [address] BMPon 12-09-2024 Anion gap [Moles/Vol] 12 mmol/L Normal 6-16 [facility] Comment on above: Performed By: #### 2 [id number] #### [facility] [address] [place] [address] Calcium [Mass/Vol] 7.5 mg/dL Low 8.9-11.1 [facility] Comment on above: Performed By: #### 2 [id number] #### [facility] [address] [place] [address] Chloride [Moles/Vol] 109 mmol/L Normal 101-[address] [facility] Comment on above: Performed By: #### 2 [id number] #### [facility] [address] [place] [address] CO2 [Moles/Vol] 24 mmol/L Normal 21-31 [facility] Comment on above: Performed By: #### 2 [id number] #### [facility] [address] [place] [address] Creatinine [Mass/Vol] 0.5 mg/dL Normal 0.5-1.3 [facility] Comment on above: Performed By: #### 2 [id number] #### [facility] [address] [place] [address] Glucose [Mass/Vol] 88 mg/dL Normal 55-199 [facility] Comment on above: Performed By: #### 2 [id number] #### [facility] [address] [place] [address] Potassium [Moles/Vol] 3.5 mmol/L Normal 3.5-5.3 [facility] Comment on above: Performed By: #### 2 [id number] #### [facility] [address] [place] [address] Sodium [Moles/Vol] 141 mmol/L Normal 135-145 [facility] Comment on above: Performed By: #### 2 [id number] #### [facility] [address] [place] [address] Urea nitrogen [Mass/Vol] 16 mg/dL Normal 5-21 [facility] Comment on above: Performed By: #### 2 [id number] #### [facility] [address] [place] [address] Urea nitrogen/Creatinine [Mass ratio] 32 No Units High 10-20 [facility] Comment on above: Performed By: #### 2 [id number] #### [facility] [address] [place] [address] CBC w/ Auto Diffon 03-19-202 5 Basophils/100 WBC (Bld) 0.6 % Normal 0.0-2.0 [facility] Comment on above: Performed By: #### 2 [id number] #### [facility] [address] [place] [address] Basophils/Leukocytes Auto (Bld) [Pure # fraction] 0.1 E9/L Normal 0.0-0.2 [facility] Comment on above: Performed By: #### 2 [id number] #### [facility] [address] [place] [address] Eosinophils (Bld) [#/Vol] 0.2 E9/L Normal 0.0-0.5 [facility] Comment on above: Performed By: #### 2 [id number] #### [facility] [address] [place] [address] Eosinophils/100 WBC (Bld) 2.3 % Normal 0.0-8.0 [facility] Comment on above: Performed By: #### 2 [id number] #### [facility] [address] [place] [address] Erythrocyte distribution width (RBC) [Ratio] 17.2 % High 10.9-14.2 [facility] Comment on above: Performed By: #### 2 [id number] #### [facility] [address] [place] [address] Hematocrit (Bld) [Volume fraction] 27.9 % Low 34.0-46.0 [facility] Comment on above: Performed By: #### 2 [id number] #### [facility] [address] [place] [address] Hemoglobin (Bld) [Mass/Vol] 9.3 g/dL Low 12.0-16.0 [facility] Comment on above: Performed By: #### 2 [id number] #### [facility] [address] [place] [address] Lymphocytes (Bld) [#/Vol] 1.0 E9/L Normal 1.0-4.0 [facility] Comment on above: Performed By: #### 2 [id number] #### [facility] [address] [place] [address] Lymphocytes/100 WBC (Bld) 11.5 % Low 14.0-50.0 [facility] Comment on above: Performed By: #### 2 [id number] #### [facility] [address] [place] [address] MCH (RBC) [Entitic mass] 29.9 pg Normal 27.0-34.0 [facility] Comment on above: Performed By: #### 2 [id number] #### [facility] [address] [place] [address] MCHC (RBC) [Mass/Vol] 33.5 g/dL Normal 31.4-36.0 [facility] Comment on above: Performed By: #### 2 [id number] #### [facility] [address] [place] [address] MCV (RBC) [Entitic vol] 89.1 fL Normal 80.0-100.0 [facility] Comment on above: Performed By: #### 2 [id number] #### [facility] [address] [place] [address] Monocytes (Bld) [#/Vol] 0.8 E9/L Normal 0.2-1.0 [facility] Comment on above: Performed By: #### 2 [id number] #### [facility] [address] [place] [address] Neutrophils (Bld) [#/Vol] 6.6 E9/L Normal 2.0-7.5 [facility] Comment on above: Performed By: #### 2 [id number] #### [facility] [address] [place] [address] Neutrophils/100 WBC (Bld) 76.1 % High 36.0-75.0 [facility] Comment on above: Performed By: #### 2 [id number] #### [facility] [address] [place] [address] Platelet 536.0 E9/L High 150.0-500.0 [facility] Comment on above: Performed By: #### 2 [id number] #### [facility] [address] [place] [address] Platelet mean volume (Bld) [Entitic vol] 6.7 fL Normal 6.4-10.8 [facility] Comment on above: Performed By: #### 2 [id number] #### [facility] [address] [place] [address] RBC (Bld) [#/Vol] 3.1 E12/L Low 4.3-5.9 [facility] Comment on above: Performed By: #### 2 [id number] #### [facility] [address] [place] [id number] WBC corrected for nucl RBC Auto (Bld) [#/Vol] 8.6 E9/L Normal 4.0-11.0 [facility] Comment on above: Performed By: #### 2 [id number] #### [facility] [address] [place] [id number] CHEMISTRYOrdered By: SYSTEM SYSTEM on 12-09-2024 Magnesium [Mass/Vol] 2.4 mg/dL Normal 1.3 - 2 .4 mg/dL Remisol Chem Albumin [Mass/Vol] 2.7 g/dL Low 3.3 - 5.0 gm/dL [facility] Albumin/Globulin [Mass ratio] 0.8 {ratio} Low 1.1 - 2.2 [facility] ALP [Catalytic activity/Vol] 109 [iU]/d High 21 - 98 Int._Unit/L [facility] ALT No additional P-5'-P [Catalytic activity/Vol] 9 [iU]/d Normal 6 - 46 Int._Unit/L [facility] Anion gap [Moles/Vol] 12 mmol/L Normal 6 - 16 mEq/L R emisol Chem AST [Catalytic activity/Vol] 10 [iU]/d Normal 5 - 43 Int._Unit/L [facility] Bilirubin [Mass/Vol] 0.3 mg/dL Normal 0.0 - 1 .1 mg/dL [facility] Bilirubin.direct [Mass/Vol] 0.0 mg/dL Normal 0.0 - 0.4 mg/dL [facility] Bilirubin.indirect [Mass or moles/Vol] 0.3 mg/dL Normal 0.1 - 0.9 mg/dL [facility] Calcium [Mass/Vol] 7.5 mg/dL Low 8.9 - 11. 1 mg/dL [facility] Chloride [Moles/Vol] 109 mmol/L Normal 101 - 1 11 mmol/L [facility] CO2 [Moles/Vol] 24 mmol/L Normal 21 - 31 mmol/L Remis ol Chem Creatinine [Mass/Vol] 0.5 mg/dL Normal 0.5 - 1.3 mg/dL [facility] eGFR 130 mL/min/1.73 m2 Normal >=59mL/mi n/1.7 3 m2 [facility] Globulin (S) [Mass/Vol] 3.4 g/dL Normal 1.4 - 4.0 gm/dL [facility] Glucose [Mass/Vol] 88 mg/dL Normal 55 - 199 mg/dL Re misol Chem Lipase [Catalytic activity/Vol] 51 U/L Normal 13 - 58 unit/L [facility] Magnesium [Mass/Vol] 0.7 mg/dL Invalid Interpretation Code 1.3 - 2.4 mg/dL [facility] Comment on above: Result Comment: Crit ical Result Verified by Repeat Analysis Critical Result S_M.7 Called to and read back by: STEPHEN ZAFAR at: 12/09/2024 18:53:57 by:DEEDEE Potassium [Moles/Vol] 3.5 mmol/L Normal 3.5 - 5.3 mmol/L Remisol Chem Protein [Mass/Vol] 6.1 g/dL Normal 6.0 - 7.8 gm/dL [facility] Sodium [Moles/Vol] 141 mmol/L Normal 135 - 145 mmol/L [facility] Urea nitrogen [Mass/Vol] 16 mg/dL Normal 5 - 21 mg/dL [facility] Urea nitrogen/Creatinine [Mass ratio] 32 mg/mg High 10 - 20 [facility] ED Clinical Summaryon 2024 ED Clinical Summary ED Clinical Summary [place] [id number] ED Clinical Summary Person Information Name: ROLA AGUILAR/[facility] Age: 29 Years : 1995 Sex: Female Language: Honduran PCP: NONE, XXXX Marital Status: Single Visit Id: Visit Reason: Abdominal pain; Headache; ABD PAIN, HEADACHE Speciality: Acuity: 3 Enc Type: Emergency Med Service: Emergency Arrival: 12/09/2024 17:31:57 Discharge: 12/09/2024 23:04:55 LOS: 000 05:33 Checkin: 12/09/2024 17:31:57 Checkout: 12/09/2024 23:04:55 Dispo Type: Home (Routine DC) EVENTS: Event Name Event Status Request Date/Time Start Date/Time Complete Date/Time Arrive Complete 12/09/2024 17:31:57 12/09/2024 17:31:57 12/09/2024 17:31:57 Document Home Meds Request 12/09/2024 17:31:57 Triage Complete 12/09/2024 17:31:57 12/09/2024 17:34:25 12/09/2024 17:34:25 Bed Assign Complete 12/09/2024 17:31:57 12/09/2024 17:31:57 12/09/2024 17:31:57 Dr Exam Complete 12/09/2024 17:31:57 12/09/2024 17:37:54 12/09/2024 17:37:54 RN Exam Complete 12/09/2024 17:31:57 12/09/2024 18:32:48 12/09/2024 18:32:48 30 Day Return Request 12/09/2024 17:34:26 Registration Complete 12/09/2024 17:37:54 12/09/2024 18:29:42 12/09/2024 18:29:42 Meds Admin Complete 12/09/2024 17:53:34 12/09/2024 18:27:41 Pending Labs Complete 12/09/2024 17:53:34 12/09/2024 19:36:14 Lab Complete 12/09/2024 17:53:34 12/09/2024 19:30:49 Swab Complete 12/09/2024 17:53:34 12/09/2024 19:30:49 Pending Labs Complete 12/09/2024 18:10:09 12/09/2024 18:10:09 12/09/2024 18:35:55 Lab Complete 12/09/2024 18:10:09 12/09/2024 18:10:09 12/09/2024 18:35:55 Reg Complete Request 12/09/2024 18:29:42 Reg Bed Request Complete 12/09/2024 18:29:42 12/09/2024 18:29:42 12/09/2024 18:29:42 Pending Labs Complete 12/09/2024 18:29:44 12/09/2024 18:29:44 12/09/2024 18:29:44 Meds Admin Complete 12/09/2024 18:57:24 12/09/2024 19:12:16 Meds Admin Complete 12/09/2024 18:58:23 12/09/2024 20:44:11 Consult Request 12/09/2024 18:58:47 Hospitalist Consult Cancel 12/09/2024 18:58:47 12/09/2024 19:48:01 Meds Admin Complete 12/09/2024 19:01:15 12/09/2024 19:12:17 Dr Exam Complete 12/09/2024 19:14:53 12/09/2024 19:14:53 12/09/2024 19:14:53 Registration Complete 12/09/2024 19:14:53 12/09/2024 19:17:42 12/09/2024 19:17:42 Pending Labs Complete 12/09/2024 21:29:38 12/09/2024 22:35:45 Lab Complete 12/09/2024 21:29:38 12/09/2024 22:35:45 Meds Admin Complete 12/09/2024 22:51:31 12/09/2024 23:03:20 Discharge Complete 12/09/2024 22:54:15 12/09/2024 23:05:01 12/09/2024 23:05:01 Transfer Complete 12/09/2024 23:05:01 12/09/2024 23:05:01 12/09/2024 23:05:01 ADDRESS: [address] [id number] PHYS DOC NOTES: MEDICAL INFORMATION: Prescriptions Given: New Medications [facility] #[id number], [address] [place], [place] [id number], [phone] magnesium glycinate (magnesium glycinate 100 mg oral capsule) 2 Capsules By Mouth every day. Refills: 0. Medications to Continue Taking That Have Changed [facility]/pharmacy #[id number], [address] [place], [place] [id number], [phone] START: ondansetron (Zofran ODT 4 mg Tab-Dis) 1 Tablets By Mouth every 6 hours. Refills: 0. START: oxycodone (oxyCODONE 5 mg Tab) 1 Tablets By Mouth every 6 hours as needed for pain for 3 Days. Refills: 0. Other Medications START: ondansetron (ondansetron 4 mg Dis Tab) 1 Tablets By Mouth every 6 hours. Refills: 0. START: oxycodone (oxyCODONE 5 mg Cap) 1 Capsules By Mouth every 6 hours as needed for pain. Refills: 0. Medications to Continue with No Changes Other Medications busPIRone (busPIRone 10 mg Tab) 1 Tablets By Mouth 2 times a day. dicyclomine (Bentyl 10 mg Cap) 2 Capsules By Mouth 4 times a day. Refills: 0. levetiracetam (Keppra 250 mg Tab) 2 Tablets By Mouth 2 times a day. Refills: 1. naloxone (naloxone 4 mg/0.1 mL nasal spray) 4 Milligram Nasal Inhalation As Directed. for suspected overdose symptoms. Refills: 0. promethazine (promethazine 25 mg Tab) 1 Tablets By Mouth every 6 hours as needed as needed for nausea/vomiting. Refills: 0. PATIENT EDUCATION INFORMATION: Instructions: Nausea and Vomiting, Adult, [id number]; Hypomagnesemia; Abdominal Pain, Adult, [id number] Follow up: With: Address: When: Brittny BLOUNT [address] [place] [address].[address], [place] [address] Business (1) In 3 days 12/12/2024 Comments: Take the magnesium. You can use the pain medication, nausea medication as prescribed as needed for pain and nausea. Please follow-up with your primary care doctor for further evaluation management. Please return to the ED for any new or worsening symptoms. With: Address: When: XXXX NONE , [place] In 3 days 12/12/2024 DIAGNOSIS: 1:Abdominal pain; 2:Nausea; 3:Diarrhea; 4:Hypomagnesemia Normal [facility] ED Note-Physicianon 12-10-19 ED Note-Physician ED Note-Physician Basic Information Time Seen: Carolyn Mcmahon M.D. 12/09/2024 17:37 Chief Complaint pt reports headache and body pain starting yetserday into today. states has seizure hx so wanted to be safe. also reports abd pain due to CD. has sx next month to correct these issues. History of Present Illness The patient is a 29-year-old female past medical history of Crohn's disease status post ileostomy who presented to the emergency room with abdominal pain, nausea and diarrhea. The patient stated recently she was diagnosed with seizure and she is on Keppra. She is complaining of slight headache. The patient states since last night her abdominal pain is gotten worse. She states this is the same abdominal pain that she has had in the past but has gotten worse since last night. She points around the ileostomy for the pain radiating down to the lower aspect of the abdomen. The patient states she has increased of output from the ileostomy. The patient states she is having some bowel movement as well. She does have prolapse of her stoma and she is scheduled by her surgeon at [facility] for surgery. The patient denies any fever. She denies any chills. The patient denies any body aches but she states she feels tense. She reports nausea but no vomiting. She denies any sore throat. Denies any cough. Denies any runny nose. The patient denies any other associated symptoms. Review of Systems Additional ROS info: Except as noted in the above Review of Systems and in the History of Present Illness all other systems have been reviewed and are negative or noncontributory. Physical Exam Vitals & Measurements T: 37.7 ???C(Oral) HR: 107(Peripheral) RR: 18 BP: 120/82 SpO2: 97% HT: 167 cm WT: 52.3 kg BMI: 18.75 General: alert, mild distress Skin: warm, dry Head: no trauma, normocephalic Neck: Trachea midline, no tenderness, supple Eye: normal conjunctiva, sclera clear, PERRL, EOMI, vision unchanged ENMT: Oral mucosa moist, no pharyngeal erythema or exudate Cardiovascular: Tachycardia Respiratory: Lungs CTA, respirations non labored, breath sounds equal Gastrointestinal: soft, non distended, ileostomy in right side of the abdomen with prolapse, mild generalized tenderness, no guarding, normal bowel sounds Extremities: no deformity, no trauma Neurological: Alert and oriented, speech normal, no focal neuro deficits Psychiatric: cooperative, affect anxious Medical Decision Making MEDICAL DECISION MAKING Number and Complexity of Problems Differential Diagnosis: [] [facility] Data External documents reviewed: [] My EKG interpretation: [] My CT interpretation: [] My X-ray interpretation: [] My Ultrasound interpretation: [] Decision rules/scores evaluated: [] Discussed with: [] Treatment and Disposition ED Course: The patient presented with abdominal pain. She states this is the same as her previous abdominal pain that got worse last night. She reported increased output from her ileostomy and nausea. Blood work reviewed. The patient has hypomagnesemia. White count is normal. The patient was given 4 g of magnesium. She was given morphine for pain and IV fluid. She was given Zofran as well. The care of the patient was transitioned to Dr. Graham upon shift change to follow-up with admission to the hospital. Shared decision making: [] Code status: [] Assessment/Plan 1. Abdominal pain (R10.9: Unspecified abdominal pain) 2. Nausea (R11.0: Nausea) 3. Diarrhea (R19.7: Diarrhea, unspecified) 4. Hypomagnesemia (E83.42: Hypomagnesemia) Orders: famotidine, 20 mg = 2 mL, Soln-IV, IV Push, Once, Stop date 12/09/24 17:52:00 EDT, STAT, Start date 12/09/24 17:52:00 EDT, 12/09/24 17:52:00 EDT magnesium sulfate + Generic Diluent 100 mL, 4 gram = 100 mL, IV Piggyback, Once, Stop date 12/09/24 18:57:00 EDT, STAT, Start date 12/09/24 18:57:00 EDT, 25 mL/hr, Infuse over 4 hour(s), 12/09/24 18:57:00 EDT morphine, 4 mg = 1 mL, Injection, IV Push, Once, Stop date 12/09/24 17:52:00 EDT, STAT, Start date 12/09/24 17:52:00 EDT, 12/09/24 17:52:00 EDT morphine, 4 mg = 1 mL, Injection, IV Push, Once, Stop date 12/09/24 19:01:00 EDT, STAT, Start date 12/09/24 19:01:00 EDT, 12/09/24 19:01:00 EDT ondansetron, 4 mg = 2 mL, Injection, IV Push, Once, Stop date 12/09/24 17:52:00 EDT, STAT, Start date 12/09/24 17:52:00 EDT, 12/09/24 17:52:00 EDT Sodium Chloride 0.9% intravenous solution, 1,000 mL, Soln-IV, IV, Once, Stop date 12/09/24 17:52:00 EDT, STAT, Start date 12/09/24 17:52:00 EDT, Infuse over 61, minute(s) Sodium Chloride 0.9% intravenous solution, 1,000 mL, Soln-IV, IV, Once, Stop date 12/09/24 18:58:00 EDT, STAT, Start date 12/09/24 18:58:00 EDT, Infuse over 61, minute(s) Basic Metabolic Panel Beta hCG Qual CBC w/ Auto Diff ED Physician consult Hospitalist for continued care eGFR Extra Blue Tube Hepatic Function Panel Influenza A&B Ag Lipase Level Magnesium Level Rapid COVID Antigen (more content not included)... Normal [facility] Comment on above: Result Comment: Elec tronically Signed By: Carolyn Mcmahon M.D.\.br\Date and Time Signed: 12/09/24 19:09 EDT ED Patient Summaryon 03-19-2 025 ED Patient Summary ED Patient Summary [place] [id number] Patient Discharge Instructions Person Information Name: ROLA AGUILAR Age: 29 Years Arrival Date: 12/09/2024 17:31:57 Discharge Diagnosis: 1:Abdominal pain; 2:Nausea; 3:Diarrhea; 4:Hypomagnesemia Primary Care Physician: NONE, [place]X Provider Information Primary Provider: Carolyn Mcmahon M.D. Advanced Implementation Lead:None The exam and treatment you received in the Emergency Department were for an urgent problem and are not intended as complete care. It is important that you follow up with a doctor, nurse practitioner, or physician???s back office medical assistant for ongoing care. If your symptoms become worse or you do not improve as expected and you are unable to reach your usual health care provider, you should return to the Emergency Department. We are available 24 hours a day. ROLA AGUILAR has been given the following list of patient education materials, prescriptions and follow-up instructions: Follow-up Instructions: With: Address: When: Brittny BLOUNT [address] [place], [place] [id number] Business (1) In 3 days 12/12/2024 Comments: Take the magnesium. You can use the pain medication, nausea medication as prescribed as needed for pain and nausea. Please follow-up with your primary care doctor for further evaluation management. Please return to the ED for any new or worsening symptoms. With: Address: When: XXXX [facility] , [place] In 3 days 12/12/2024 In the event that this physician does not participate in your insurance network, please consult with your insurance company to find a nearby participating provider. Patient Education Materials: Nausea and Vomiting, Adult, Jjkl-wn-Qecu; Hypomagnesemia; Abdominal Pain, Adult, Elty-te-Oijm A MESSAGE TO ALL PATIENTS REGARDING OPIOIDS PRESCRIPTION OPIOIDS: WHAT YOU NEED TO KNOW Prescription opioids can be used to help relieve jkcxcaoy-to-ppmyww pain and are often prescribed following a [...] (this may include visitors, children, friends, and fa (more content not included)... Normal [facility] Extra Blueon 12-09-2024 Tube Collected Plasma Yes Invalid Interpretation Code [facility] Comment on above: Performed By: #### 1 [id number] #### [facility] [address] [place] [address] HEMATOLOGYOrdered By: SYSTEM SYSTEM on 12-09-2024 Basophils/100 WBC (Bld) 0.6 % Normal 0.0 - 2.0 % Remisol Heme Basophils/Leukocytes Auto (Bld) [Pure # fraction] 0.1 E9/L Normal 0.0 - 0.2 E9/L Remisol Heme Eosinophils (Bld) [#/Vol] 0.2 E9/L Normal 0.0 - 0.5 E9/L Remisol Heme Eosinophils/100 WBC (Bld) 2.3 % Normal 0.0 - 8.0 % Remisol Heme Erythrocyte distribution width (RBC) [Ratio] 17.2 % High 10.9 - 14.2 % Remisol Heme Hematocrit (Bld) [Volume fraction] 27.9 % Low 34.0 - 46.0 % Remisol Heme Hemoglobin (Bld) [Mass/Vol] 9.3 g/dL Low 12.0 - 16.0 gm/dL Remisol Heme Lymphocytes (Bld) [#/Vol] 1.0 E9/L Normal 1.0 - 4.0 E9/L Remisol Heme Lymphocytes/100 WBC (Bld) 11.5 % Low 14.0 - 50.0 % Remisol Heme MCH (RBC) [Entitic mass] 29.9 pg Normal 27.0 - 34.0 pg Remisol Heme MCHC (RBC) [Mass/Vol] 33.5 g/dL Normal 31.4 - 36.0 gm/dL Remisol Heme MCV (RBC) [Entitic vol] 89.1 fL Normal 80.0 - 100.0 fL Remisol Heme Monocytes (Bld) [#/Vol] 0.8 E9/L Normal 0.2 - 1.0 E9/L Remisol Heme Monocytes/100 WBC (Bld) 9.5 % Normal 4.0 - 14.0 % Remisol Heme Neutrophils (Bld) [#/Vol] 6.6 E9/L Normal 2.0 - 7.5 E9/L Remisol Heme Neutrophils/100 WBC (Bld) 76.1 % High 36.0 - 75.0 % Remisol Heme Platelet 536.0 E9/L High 150.0 - 500.0 E9/L Remisol Heme Platelet mean volume (Bld) [Entitic vol] 6.7 fL Normal 6.4 - 10.8 fL Remisol Heme RBC (Bld) [#/Vol] 3.1 E12/L Low 4.3 - 5.9 E12/L Remisol Heme WBC corrected for nucl RBC Auto (Bld) [#/Vol] 8.6 E9/L Normal 4.0 - 11.0 E9/L Remisol Heme Hep Func Panelon 12-09-2024 Albumin [Mass/Vol] 2.7 g/dL Low 3.3-5.0 [facility] Comment on above: Performed By: #### 2 [id number] #### [facility] [address] [place] [address] Albumin/Globulin (S) [Mass conc ratio] 0.8 Low 1.1-2.2 [facility] Comment on above: Performed By: #### 2 [id number] #### [facility] [address] [place] [address] ALP [Catalytic activity/Vol] 109 Int._Unit/L High 21-98 [facility] Comment on above: Performed By: #### 2 [id number] #### [facility] [address] [place] [address] ALT No additional P-5'-P [Catalytic activity/Vol] 9 Int._Unit/L Normal 6-46 [facility] Comment on above: Performed By: #### 2 [id number] #### [facility] [address] [place] [address] AST [Catalytic activity/Vol] 10 Int._Unit/L Normal 5-43 [facility] Comment on above: Performed By: #### 2 [id number] #### [facility] [address] [place] [address] Bilirubin [Mass/Vol] 0.3 mg/dL Normal 0.0-1.[address] [facility] Comment on above: Performed By: #### 2 [id number] #### [facility] [address] [place] [address] Bilirubin.direct [Mass/Vol] 0.0 mg/dL Normal 0.0-0.4 [facility] Comment on above: Performed By: #### 2 [id number] #### [facility] [address] [place] [address] Bilirubin.indirect [Mass or moles/Vol] 0.3 mg/dL Normal 0.1-0.9 [facility] Comment on above: Performed By: #### 2 [id number] #### [facility] [address] [place] [address] Globulin (S) [Mass/Vol] 3.4 g/dL Normal 1.4-4.0 [facility] Comment on above: Performed By: #### 2 [id number] #### [facility] [address] [place] [address] Protein [Mass/Vol] 6.1 g/dL Normal 6.0-7.8 [facility] Comment on above: Performed By: #### 2 [id number] #### [facility] [address] [place] [address] Influenza A&B Agon 5 Influenzae A Ag Negative Normal Negative [facility] Comment on above: Performed By: #### 1 [id number] #### [facility] [address] [place] [address] Influenzae B Ag Negative Normal Negative [facility] Comment on above: Result Comment: Test sensitivity and specificity vary for age group, specimen type, antigen types, and prevalence of disease. Test results must be evaluated in conjunction with other clinical data available to the physician. Individuals who received nasally administered Influenza A vaccine may have positive test results up to 3 days after vaccination. Performed By: #### 1 [id number] #### [facility] [address] [place] [address] Lipase Levelon 12-09-2024 Lipase [Catalytic activity/Vol] 51 U/L Normal 13-58 [facility] Comment on above: Performed By: #### 2 [id number] #### [facility] [address] [place] [address] MICRO OTHER TESTSOrdered By: Rimma Ray on 12-09-2024 Influenzae A Ag Negative (12/09/24 6:58 PM) Normal Negative [facility] Man Sero Influenzae B Ag Negative 2 (12/09/24 6:58 PM) Normal Negative [facility]ero Comment on above: Interpretive Data: T est sensitivity and specificity vary for age group, specimen type, antigen types, and prevalence of disease. Test results must be evaluated in conjunction with other clinical data available to the physician. Individuals who received nasally administered Influenza A vaccine may have positive test results up to 3 days after vaccination. Rapid COV Int NEG Ctl Pass (12/09/24 6:58 PM) Normal [facility] Man Sero Rapid COV Int POS Ctl Pass (12/09/24 6:58 PM) Normal [facility] Man Sero SARS-CoV+SARS-CoV-2 (COVID-19) Ag IA.rapid Ql (Resp) Not Detected 4 (12/09/24 6:58 PM) Normal Not Detected [facility] Man [facility]ero Comment on above: Interpretive Data: T he Verbling Veritor System for Rapid Detection of SARS-CoV-2 is a chromatographic digital immunoassay intended for the direct and qualitative detection of SARS-CoV-2 nucleocapsid antigens in nasal swabs from individuals who are suspected of COVID-19 by their healthcare provider within the first five days of the onset of symptoms. Negative results should be treated as presumptive, do not rule out SARS-CoV-2 infection and should not be used as the sole basis for treatment or patient management decisions, including infection control decisions. Negative results should be considered in the context of a patient s recent exposures, history and the presence of clinical signs and symptoms consistent with COVID-19, and confirmed with a molecular assay, if necessary, for patient management. For in vitro diagnostic use. In the [facility] [[email or web address]], only for use under an Emergency Use Authorization. In the [place], this test has not been FDA cleared or approved; this test has been authorized by FDA under an EUA for use by authorized laboratories; use by laboratories certified under the CLIA, 42 U.S.C. 263a, that meet requirements to perform moderate, high, or waived complexity tests and at the Point of Care (POC), i.e., in patient care settings operating under a CLIA Certificate of Waiver, Certificate of Compliance, or Certificate of Accreditation. This test has been authorized only for the detection of proteins from SARS-CoV-2, not for any other viruses or pathogens; and, in the [place], this test is only authorized for the duration of the declaration that circumstances exist justifying the authorization of emergency use of in vitro diagnostics for detection and/or diagnosis of the virus that causes COVID-19 under Section 564(b)(1) of the Act, 21 U.S.C. 360bbb-3(b)(1), unless the authorization is terminated or revoked sooner. Magnesiumon 12-09-2024 Magnesium [Mass/Vol] 2.4 mg/dL Normal 1.3-2.[address] [facility] Comment on above: Performed By: #### 2 [id number] #### [facility] [address] [place] [address] Magnesium [Mass/Vol] 0.7 mg/dL Abnormal 1.3-2.[address] [facility] Comment on above: Result Comment: Crit ical Result Verified by Repeat Analysis Critical Result S_M.[id number] Called to and read back by: STEPHEN ZAFAR at: 12/09/2024 18:53:57 by:DEEDEE Performed By: #### 2 [id number] #### [facility] [address] [place] [address] Pre-Arrival Noteon 5 Pre-Arrival Note Pre-Arrival Note Pre-Arrival Summary Name: , maria e Current Date: 12/09/2024 17:32:37 EDT Gender: Female Date of : Age: 29 Pre-Arrival Type: EMS ETA: 12/09/2024 17:27:00 EDT Primary Care Physician: Presenting Problem: headache for 3 days Pre-Arrival User: Referring Source: Location: Completion Date/Time: 12/09/2024 17:21:00 [facility] Emergency Department Pre-Hospital Report Form Vital Signs: Pre-Hospital Report: Treatment in Route: Response to Treatment: Misc. Issues: Normal [facility] Rapid COVID Antigen ([facility])on 12-09-2024 Rapid COV Int NEG Ctl Pass Normal [facility] Comment on above: Performed By: #### 2 [id number] #### [facility] [address] [place] [address] Rapid COV Int POS Ctl Pass Normal [facility] Comment on above: Performed By: #### 2 [id number] #### [facility] [address] [place] [address] SARS-CoV+SARS-CoV-2 (COVID-19) Ag IA.rapid Ql (Resp) Not detected Normal Not Detected [facility] Comment on above: Result Comment: The NUOFFER??? System for Rapid Detection of SARS-CoV-2 is a chromatographic digital immunoassay intended for the direct and qualitative detection of SARS-CoV-2 nucleocapsid antigens in nasal swabs from individuals who are suspected of COVID-19 by their healthcare provider within the first five days of the onset of symptoms. Negative results should be treated as presumptive, do not rule out SARS-CoV-2 infection and should not be used as the sole basis for treatment or patient management decisions, including infection control decisions. Negative results should be considered in the context of a patient???s recent exposures, history and the presence of clinical signs and symptoms consistent with COVID-19, and confirmed with a molecular assay, if necessary, for patient management. For in vitro diagnostic use. In the [place], only for use under an Emergency Use Authorization. In the [place], this test has not been FDA cleared or approved; this test has been authorized by FDA under an EUA for use by authorized laboratories; use by laboratories certified under the CLIA, 42 U.S.C. ???263a, that meet requirements to perform moderate, high, or waived complexity tests and at the Point of Care (POC), i.e., in patient care settings operating under a CLIA Certificate of Waiver, Certificate of Compliance, or Certificate of Accreditation. This test has been authorized only for the detection of proteins from SARS-CoV-2, not for any other viruses or pathogens; and, in the [place], this test is only authorized for the duration of the declaration that circumstances exist justifying the authorization of emergency use of in vitro diagnostics for detection and/or diagnosis of the virus that causes COVID-19 under Section 564(b)(1) of the Act, 21 U.S.C. ??? 360bbb-3(b)(1), unless the authorization is terminated or revoked sooner. Performed By: #### 2 [id number] #### [facility] [address] [place] [address] SEROLOGYOrdered By: Sherrell Mason on 12-09-2024 Beta HCG ( test) Ql Negative (12/09/24 6:01 PM) Normal [facility] Man Sero UA with Cult Rflxon 12-10-19 25 Bilirubin Ql (U) Negative Normal Negative [facility] Comment on above: Performed By: #### 4 [id number] #### [facility] [address] [place] [address] Clarity (U) Clear Normal Clear [facility] Comment on above: Performed By: #### 4 [id number] #### [facility] [address] [place] [address] Color (U) Colorless Abnormal Yellow [facility] Comment on above: Result Comment: Micr oscopic readings are only performed on those samples that meet specific criteria set forth by [facility]. Performed By: #### 4 [id number] #### [facility] [address] [place] [address] Epithelial cells.squamous Auto (Urine sed) [#/Area] 3-4 Invalid Interpretation Code [facility] Comment on above: Performed By: #### 4 [id number] #### [facility] [address] [place] [address] Glucose Ql (U) Negative Normal Negative [facility] Comment on above: Performed By: #### 4 [id number] #### [facility] [address] [place] [address] Hemoglobin Auto test strip (U) [Mass/Vol] Negative Normal Negative [facility] Comment on above: Performed By: #### 4 [id number] #### [facility] [address] [place] [address] Ketones Auto test strip Ql (U) Negative Normal Negative [facility] Comment on above: Performed By: #### 4 [id number] #### [facility] [address] [place] [address] Leukocyte esterase Auto test strip Ql (U) 25 Cristela/uL Normal Negative [facility] Comment on above: Performed By: #### 4 [id number] #### [facility] [address] [place] [address] Mucus Auto Ql (U) Negative Normal Negative [facility] Comment on above: Performed By: #### 4 [id number] #### [facility] [address] [place] [address] Nitrite Auto test strip Ql (U) Negative Normal Negative [facility] Comment on above: Performed By: #### 4 [id number] #### [facility] [address] [place] [address] pH (U) 6.5 [pH] Invalid Interpretation Code 5.0-9.0 [facility] Comment on above: Performed By: #### 4 [id number] #### [facility] [address] [place] [address] Protein Ql (U) Negative Normal Negative [facility] Comment on above: Performed By: #### 4 [id number] #### [facility] [address] [place] [address] RBC Ql (U) 0-3 Normal 0-3 [facility] Comment on above: Performed By: #### 4 [id number] #### [facility] [address] [place] [address] Specific gravity (U) [Rel density] 1.007 Invalid Interpretation Code 1.005-1.030 [facility] Comment on above: Performed By: #### 4 [id number] #### [facility] [address] [place] [address] Urobilinogen (U) [Mass/Vol] Negative Normal Negative [facility] Comment on above: Performed By: #### 4 [id number] #### [facility] [address] [place] [address] WBC Auto (Urine sed) [#/Area] 0-5 Normal 0-5 [facility] Comment on above: Performed By: #### 4 [id number] #### [facility] [address] [place] [address] Type of Urine collection method Clean Catch Normal [facility] Comment on above: Performed By: #### 4 [id number] #### [facility] [address] [place] [address] URINALYSISOrdered By: SYSTEM SYSTEM on 12-09-2024 Bilirubin Ql (U) Negative Normal Negativemg/dL [facility] UA Auto SS Clarity (U) Clear (12/09/24 7:11 PM) Normal Clear [facility] UA Auto SS Color (U) Colorless 1 *ABN* (12/09/24 7:11 PM) Invalid Interpretation Code Yellow [facility] UA Auto SS Comment on above: Interpretive Data: M icroscopic readings are only performed on those samples that meet specific criteria set forth by [facility]. Epithelial cells.squamous Auto (Urine sed) [#/Area] 3-4 graded/HPF Invalid Interpretation Code [facility] UA Auto SS Glucose Ql (U) Negative Normal Negativemg/dL [facility] UA Auto SS Hemoglobin Auto test strip (U) [Mass/Vol] Negative Normal Negativemg/dL [facility] UA Aut o SS Ketones Auto test strip Ql (U) Negative Normal Negativemg/dL [facility] UA Auto SS Leukocyte esterase Auto test strip Ql (U) 25 Cristela/uL Cristela/uL Normal NegativeLeu/uL [facility] UA Auto SS Mucus Auto Ql (U) Negative Normal Negativegr aded /LPF [facility] UA Auto SS Nitrite Auto test strip Ql (U) Negative Normal Negativemg/dL [facility] UA Auto SS pH (U) 6.5 *NA* (12/09/24 7:11 PM) Invalid Interpretation Code 5.0 - 9.0 [facility] UA Auto SS Protein Ql (U) Negative Normal Negativemg/dL [facility] UA Auto SS RBC Ql (U) 0-3 graded/HPF Normal 0-3graded/HPF [facility] UA Auto SS Specific gravity (U) [Rel density] 1.007 *NA* (12/09/24 7:11 PM) Invalid Interpretation Code 1.005 - 1.030 [facility] UA Auto SS Urobilinogen (U) [Mass/Vol] Negative Normal Negativemg/dL [facility] UA Auto SS WBC Auto (Urine sed) [#/Area] 0-5 graded/HPF Normal 0-5graded/HPF [facility] UA Auto SS URINALYSISOrdered By: Carolyn Mcmahon on 12-09-2024 UA Spec Desc Clean Catch (12/09/24 7:11 PM) Normal [facility] UA Auto SS eGFRon 12-09-2024 eGFR 130 mL/min/1.73 m2 Normal >=59 [facility] Comment on above: Performed By: #### 1 [id number] #### [facility] [address] [place] [address] EEGon 12-05-2024 EEG EEG This is a routine electroencephalogram performed on a 29-year-old female using standard 10/20 lead placement and a [employer] system. All data were obtained digitally and are available for reformatting and remontage. There is electrical decrement noted throughout the record with periodic activity recorded in a generalized pattern including beta activity at 6-8 hertz and 20-30 microvolt amplitude range with superimposed delta activity in the 1-4 hertz range intermixed throughout the record. There is no epileptiform activity recorded during the record. There are no seizures recorded during the record. IMPRESSION: This is an abnormal electroencephalogram due to periodic patterns of electrical decrement consistent with a severe diffuse encephalopathy. Clinical correlation is recommended. Jeff Marinelli M.D. ca Dictated: 11/23/2024 [id number] Typed: 11/24/2024 [place] Comment on above: Result Comment: Elec tronically Signed By: Michael Marinelli MD\Date and Time Signed: 12/05/24 09:14 EDT EEG EEG This is a routine electroencephalogram performed on a 29-year-old female using standard 10/20 lead placement and a [employer] system. All data were obtained digitally and are available for reformatting and remontage. There is significant electrical decrement noted throughout the record. There is a periodic pattern of generalized discharges in the 9 hertz alpha range superimposed upon delta activity in the 1-4 hertz range and 40-60 microvolt amplitude range with intermixed occasional beta activity in the 4-6 hertz range recorded during this periodic pattern. There is no clear epileptiform activity recorded during the record. There are no seizures recorded during the record. IMPRESSION: This is an abnormal electroencephalogram due to a periodic pattern with electrical decrement and periodic generalized flow activity consistent with a severe diffuse encephalopathy. Clinical correlation is recommended. Danica Pritchett Dictated: 11/25/2024 [id number] Typed: 11/25/2024 [place] Comment on above: Result Comment: Elec tronically Signed By: Michael Marinelli MD\Date and Time Signed: 12/05/24 09:14 EDT CNOVon 12-04-2024 CNOV Office Visit ([facility]FHAM ) ROLA AGUILAR ([id number]) 1995 F Date Time Provider Department 12/04/24 10:30 AM SHAQ THAKKAR During your visit today, we recorded the following information about you: Shaq Thakkar MD 12/08/2024 9:54 AM Signed COLORECTAL SURGERY December 04, 2024 Rola Aguilar 29 year old Chief Complaint: follow up/ anal fistula History of Present Illness: Rola Aguilar is a 29 year old female who presents to the office for a follow up evaluation after undergoing a Anorectal exam under anesthesia, Incision and drainage of perianal abscess and Placement of ariana through fistula tract on 07/23/24 for a history of crohn's disease, perianal abscess and fistula. She is currently being treated with vedolizumab for Crohn's disease. FINDINGS: - Large abscess cavity in the ischiorectal space with fistulization to the rectum at the 7-8 o'clock position PAST MEDICAL HISTORY Diagnosis Date Crohn's disease [...] week Drug use: No Physical Exam: LMP 06/29/2024 (Approximate) General Appearance: Well appearing, alert, in no acute distress, well-hydrated, well nourished. Abdomen: soft ND NT Anorectal: External exam reveals: see below Child Adolescent Psychiatrist present: yes The sensitive examination was discussed with the Patient or Patient's Authorized Director Of Advertising Sales. As applicable, any other physician, advance practice provider, medical student, or other health professional student that will be observing or involved in the sensitive examination for educational or training purposes was discussed with the Patient or Authorized Director Of Advertising Sales. The Patient or Authorized Director Of Advertising Sales has agreed to proceed with the sensitive examination. (Sensitive examination includes inspection and/or palpation of the breasts, pelvis, prostate and anorectal regions) She has multiple draining setons and complex fistula disease. Furthermore, she has wounds posterior to posterior anal verge extending to her lower back region. Assessment Assessment and Plan: Rola Aguilar is a 29 year old female with severe cele-anal Crohn's and Crohn's colitis. She has a very poor QOL and is now requesting total proctocolectomy with permanent ileostomy. We discussed all of her options today but based on her poor QOL and good family support she would like to reset and have the disease removed. We are planning a laparoscopic TPC and with a perineal dissection. She understands that she will likely have a complex post-operative perineal wound that will take time to heal but it has a better chance to heal without the rectum in place. Medical Decision Making: Data Reviewed: Tests AND Documents Reviewed/ordered: Review of prior operative reports I have independently interpreted: CT Abdomen, CT Pelvis I have discussed Rola Aguilar's treatment plan and/or results with her PC and GI. Shaq Thakkar MD Colorectal Surgery Allergies As of Date: 12/04/2024 Noted Allergy Reaction HYDROMORPHONE 05/26/2023 9 - Itching Date Reviewed: 12/04/2024 Reviewed by: Tom White LPN - Fully Assessed Reason for Visit: ED Follow-up [821] Cmt: Patient here to discuss stoma prolapse, anal fistula with drainage. Primary Visit Diagnosis:Crohn disease of colon and rectum (HCC) [K50.10] Other Visit Diagnoses:Anal f (more content not included)... Normal [facility] SPINAL FLUIDon 11-26-2024 SPINAL FLUID CULTURE Microbiology PROCEDURE: Spinal Fluid Culture [R1] SOURCE: CSF BODY SITE: COLLECTED DATE/TIME: 11/23/2024 12:08 EST RECEIVED DATE/TIME: 11/23/2024 16:39 EST START DATE/TIME: 11/23/2024 16:39 EST FREE TEXT SOURCE: Ted Petersen DO, DO, Adam M FINAL REPORTS Final Report [] Verified Date/Time: 11/26/2024 10:20 EST No growth at 3 days. STAINS Gram Stain Report [] Verified Date/Time: 11/24/2024 11:30 EST No WBC's seen. No organisms seen. Performing Locations R1: This test was performed at: [facility] [facility], [address] [place] [address], [facility] , , [facility] Original Ordering Provider: DO Ted Petersen [facility] Coding Queryon 11-26-2024 Coding Query Coding Query From: Caro Gross RN To: Quinn Rodriguez III, DO; Sent: 11/25/2024 15:19:33 EST ! Subject: Coding Query Due Date/Time: 11/26/2024 15:19:00 EST Caller Name: ROLA AGUILAR; Caller Number: Vidal , Richard Documentation per a outside solar sales consultant in the medical record indicates this patient has been diagnosed as having: immunosuppression The following is also documented in the medical record: 11/24 Neuro- Unclear as to why she would have new onset seizures. 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 Still need to assess brain parenchyma with contrast-enhanced MR imaging. Need to rule out PML and PRES, among others. Based on your medical judgment of the documented diagnoses by the outside solar sales consultant, do you agree with the diagnosis? [___]Yes, I agree with the diagnosis documented by the outside solar sales consultant. [___]No, I do not agree with the diagnosis documented by the outside solar sales consultant. Reason: [___]Other: In responding to this request, please exercise your independent professional judgement. The fact that a question is asked does not imply that any particular answer is desired or expected. Thank you![phone] Yes, I agree with the diagnosis documented by the outside solar sales consultant. From: Quinn Rodriguez III, DO To: Caro Gross RN; Sent: 11/26/2024 07:22:59 EST Subject: RE: Coding Query Caller Name: ROLA AGUILAR; Caller Number: Vidal , Richard Normal [facility] General Message Officeon [facility] Message Office --- --- --- --- --- --- --- --- --- From: Anastasia Thompson To: ROLA AGUILAR Sent: 11/26/24 02:30:51 AM EST Subject: Discharge Summary Ready to View A summary regarding your recent visit is available in the Documents section of your health record. Normal [facility] Lab Miscellaneous-LCon 11-26 Lab Miscellaneous COMMENT Invalid Interpretation Code [facility] Comment on above: Order Comment: CSF Result Comment: Test Ordered: [id number] Anti-NMDAR, Spinal Fluid NMDAR Antibody, Cell-based IFA Negative BN Reference Range: Negative This test was developed and its performance characteristics determined by [facility]. It has not been cleared or approved by the Food and Drug Administration. Performed at: [address] [id number] PhD Samanta Nina Performed By: #### 1 [id number] #### [facility] [address] [place] [address] CBC w/ Auto Diffon 5 Basophils/100 WBC (Bld) 0.3 % Normal 0.0-2.0 [facility] Comment on above: Performed By: #### 2 [id number] #### [facility] [address] [place] [address] Basophils/Leukocytes Auto (Bld) [Pure # fraction] 0.0 E9/L Normal 0.0-0.2 [facility] Comment on above: Performed By: #### 2 [id number] #### [facility] [address] [place] [address] Eosinophils (Bld) [#/Vol] 0.2 E9/L Normal 0.0-0.5 [facility] Comment on above: Performed By: #### 2 [id number] #### [facility] [address] [place] [address] Eosinophils/100 WBC (Bld) 2.0 % Normal 0.0-8.0 [facility] Comment on above: Performed By: #### 2 [id number] #### [facility] [address] [place] [address] Erythrocyte distribution width (RBC) [Ratio] 18.3 % High 10.9-14.2 [facility] Comment on above: Performed By: #### 2 [id number] #### [facility] [address] [place] [address] Hematocrit (Bld) [Volume fraction] 30.5 % Low 34.0-46.0 [facility] Comment on above: Performed By: #### 2 [id number] #### [facility] [address] [place] [address] Hemoglobin (Bld) [Mass/Vol] 10.1 g/dL Low 12.0-16.0 [facility] Comment on above: Performed By: #### 2 [id number] #### [facility] [address] [place] [address] Lymphocytes (Bld) [#/Vol] 0.8 E9/L Low 1.0-4.0 [facility] Comment on above: Performed By: #### 2 [id number] #### [facility] [address] [place] [address] Lymphocytes/100 WBC (Bld) 9.6 % Low 14.0-50.0 [facility] Comment on above: Performed By: #### 2 154136 #### [facility] [address] [place] [address] MCH (RBC) [Entitic mass] 29.2 pg Normal 27.0-34.0 [facility] Comment on above: Performed By: #### 2 402642 #### [facility] [address] [place] [address] MCHC (RBC) [Mass/Vol] 33.2 g/dL Normal 31.4-36.0 [facility] Comment on above: Performed By: #### 2 [id number] #### [facility] [address] [place] [address] MCV (RBC) [Entitic vol] 87.8 fL Normal 80.0-100.0 [facility] Comment on above: Performed By: #### 2 [id number] #### [facility] [address] [place] [address] Monocytes (Bld) [#/Vol] 0.5 E9/L Normal 0.2-1.0 [facility] Comment on above: Performed By: #### 2 [id number] #### [facility] [address] [place] [address] Neutrophils (Bld) [#/Vol] 6.7 E9/L Normal 2.0-7.5 [facility] Comment on above: Performed By: #### 2 [id number] #### [facility] [address] [place] [address] Neutrophils/100 WBC (Bld) 82.2 % High 36.0-75.0 [facility] Comment on above: Performed By: #### 2 513206 #### [facility] [address] [place] [address] Platelet mean volume (Bld) [Entitic vol] 6.7 fL Normal 6.4-10.8 [facility] Comment on above: Performed By: #### 2 [id number] #### [facility] [address] [place] [address] Platelets (Bld) [#/Vol] 375.0 E9/L Normal 150.0-500.0 [facility] Comment on above: Performed By: #### 2 [id number] #### [facility] [address] [place] [address] RBC (Bld) [#/Vol] 3.5 E12/L Low 4.3-5.9 [facility] Comment on above: Performed By: #### 2 [id number] #### [facility] [address] [place] [address] WBC corrected for nucl RBC Auto (Bld) [#/Vol] 8.2 E9/L Normal 4.0-11.0 [facility] Comment on above: Performed By: #### 2 [id number] #### [facility] [address] [place] [address] CHEMISTRYOrdered By: SYSTEM SYSTEM on 11-25-2024 Albumin [Mass/Vol] 2.4 g/dL Low 3.3 - 5.0 gm/dL Remisol Chem Albumin/Globulin [Mass ratio] 0.8 {ratio} Low 1.1 - 2.2 Remisol Chem ALP [Catalytic activity/Vol] 113 [iU]/d High 21 - 98 Int._Unit/L Remisol Chem ALT No additional P-5'-P [Catalytic activity/Vol] 16 [iU]/d Normal 6 - 46 Int._Unit/L Remisol Chem Anion gap [Moles/Vol] 11 mmol/L Normal 6 - 16 mEq/L R emisol Chem AST [Catalytic activity/Vol] 13 [iU]/d Normal 5 - 43 Int._Unit/L Remisol Chem Bilirubin [Mass/Vol] 0.5 mg/dL Normal 0.0 - 1 .1 mg/dL Remisol Chem Calcium [Mass/Vol] 7.3 mg/dL Low 8.9 - 11. 1 mg/dL Remisol Chem Chloride [Moles/Vol] 110 mmol/L Normal 101 - 1 11 mmol/L Remisol Chem CO2 [Moles/Vol] 20 mmol/L Low 21 - 31 mmol/L Remis ol Chem Creatinine [Mass/Vol] 0.6 mg/dL Normal 0.5 - 1.3 mg/dL Remisol Chem eGFR 124 mL/min/1.73 m2 Normal >=59mL/mi n/1.7 3 m2 Remisol Chem Globulin (S) [Mass/Vol] 3.0 g/dL Normal 1.4 - 4.0 gm/dL Remisol Chem Glucose [Mass/Vol] 87 mg/dL Normal 55 - 199 mg/dL Re misol Chem Potassium [Moles/Vol] 3.0 mmol/L Low 3.5 - 5.3 mmol/L Remisol Chem Protein [Mass/Vol] 5.4 g/dL Low 6.0 - 7.8 gm/dL Remisol Chem Sodium [Moles/Vol] 138 mmol/L Normal 135 - 145 mmol/L Remisol Chem Urea nitrogen [Mass/Vol] 9 mg/dL Normal 5 - 21 mg/dL Remisol Chem Urea nitrogen/Creatinine [Mass ratio] 15 mg/mg Normal 10 - 20 Remisol Chem CMPon 11-25-2024 Albumin [Mass/Vol] 2.4 g/dL Low 3.3-5.0 [facility] Comment on above: Performed By: #### 2 [id number] #### [facility] [address] [place] [address] Albumin/Globulin (S) [Mass conc ratio] 0.8 Low 1.1-2.2 [facility] Comment on above: Performed By: #### 2 [id number] #### [facility] [address] [place] [address] ALP [Catalytic activity/Vol] 113 Int._Unit/L High 21- [facility] Comment on above: Performed By: #### 2 [id number] #### [facility] [address] [place] [address] ALT No additional P-5'-P [Catalytic activity/Vol] 16 Int._Unit/L Normal 6-46 [facility] Comment on above: Performed By: #### 2 [id number] #### [facility] [address] [place] [address] Anion gap [Moles/Vol] 11 mmol/L Normal 6-16 [facility] Comment on above: Performed By: #### 2 939056 #### [facility] [address] [place] [address] AST [Catalytic activity/Vol] 13 Int._Unit/L Normal 5-43 [facility] Comment on above: Performed By: #### 2 634644 #### [facility] [address] [place] [address] Bilirubin [Mass/Vol] 0.5 mg/dL Normal 0.0-1.[address] [facility] Comment on above: Performed By: #### 2 214179 #### [facility] [address] [place] [address] Calcium [Mass/Vol] 7.3 mg/dL Low 8.9-11.1 [facility] Comment on above: Performed By: #### 2 [id number] #### [facility] [address] [place] [address] Chloride [Moles/Vol] 110 mmol/L Normal 101-[address] [facility] Comment on above: Performed By: #### 2 011749 #### [facility] [address] [place] [address] CO2 [Moles/Vol] 20 mmol/L Low 21-31 [facility] Comment on above: Performed By: #### 2 491512 #### [facility] [address] [place] [address] Creatinine [Mass/Vol] 0.6 mg/dL Normal 0.5-1.3 [facility] Comment on above: Performed By: #### 2 [id number] #### [facility] [address] [place] [address] Globulin (S) [Mass/Vol] 3.0 g/dL Normal 1.4-4.0 [facility] Comment on above: Performed By: #### 2 764758 #### [facility] [address] [place] [address] Glucose [Mass/Vol] 87 mg/dL Normal 55-199 [facility] Comment on above: Performed By: #### 2 472081 #### [facility] [address] [place] [address] Potassium [Moles/Vol] 3.0 mmol/L Low 3.5-5.3 [facility] Comment on above: Performed By: #### 2 [id number] #### [facility] [address] [place] [address] Protein [Mass/Vol] 5.4 g/dL Low 6.0-7.8 [facility] Comment on above: Performed By: #### 2 665259 #### [facility] [address] [place] [address] Sodium [Moles/Vol] 138 mmol/L Normal 135-145 [facility] Comment on above: Performed By: #### 2 [id number] #### [facility] [address] [place] [address] Urea nitrogen [Mass/Vol] 9 mg/dL Normal 5-21 [facility] Comment on above: Performed By: #### 2 425351 #### [facility] [address] [place] [address] Urea nitrogen/Creatinine [Mass ratio] 15 No Units Normal 10-20 [facility] Comment on above: Performed By: #### 2 [id number] #### [facility] [address] [place] [address] Discharge Instructionson Discharge Instructions Discharge Instructions ROLA AGUILAR :1995 Visit Date:11/22/2024 Inpatient Discharge Instructions Your Care Team Admitting Physician - Dago OLVERA DO Consulting Physician - Thuy GILES, Jeff Estrada Jr., PA-C, Aldo Hernandez Reason for Your Visit seizure Your Diagnosis Acute respiratory failure with hypoxia Unspecified convulsions, Generalized seizure Metabolic acidosis Leukocytosis Metabolic encephalopathy Hypokalemia Hypomagnesemia Perianal fistula due to Crohn's disease Crohn's disease Generalized anxiety disorder Bipolar depression Pressure ulcer of coccygeal region, stage 3 Pressure ulcer of left buttock, stage 3 Pressure ulcer of right buttock, stage 3 Protein-calorie malnutrition, severe Gram-positive bacteremia Altered mental status Anal fistula, unspecified Tachycardia Tests Performed Cervical Spine CT w/o Contrast CT Abdomen/Pelvis w/ Contrast CT Head or Brain w/o Contrast CTA Chest CTA Head MRI Brain w/ + w/o Contrast This Is Your Medications List busPIRone (busPIRone 10 mg Tab) dicyclomine (Bentyl 10 mg Cap) levetiracetam (Keppra 250 mg Tab) naloxone (naloxone 4 mg/0.1 mL nasal spray) ondansetron (ondansetron 4 mg Dis Tab) oxycodone (oxyCODONE 5 mg Cap) promethazine (promethazine 25 mg Tab) Procedure History Incision and drainage of ischiorectal and/or perirectal abscess (separate procedure) (07/20/2024), Incision and drainage of vulva or perineal abscess (07/20/2024), Placement of seton (07/20/2024), Surgical treatment of anal fistula (fistulectomy/fistulo scott); subcutaneous (07/20/2024), Colonoscopy, flexible; diagnostic, including collection of specimen(s) by brushing or washing, when performed (separate procedure) (01/20/2024), Small intestinal endoscopy, enteroscopy beyond second portion of duodenum, including ileum; diagnostic, with or without collection of specimen(s) by brushing or washing (separate procedure) (01/20/2024), delivery only; (10/24/2023), Salpingectomy, complete or partial, unilateral or bilateral (separate procedure) (10/24/2023), Colonoscopy (01/18/2023), Colonoscopy, flexible; diagnostic, including collection of specimen(s) by brushing or washing, when performed (separate procedure) (01/18/2023), Small intestinal endoscopy, enteroscopy beyond second portion of duodenum, including ileum; diagnostic, with or without collection of specimen(s) by brushing or washing (separate procedure) (01/18/2023), Colonoscopy (2013), Esophagogastroduodeno scopy, H/O: ileostomy, History of ileostomy. Discharge Vitals Temperature (Oral) 36.7 ???C Heart Rate (Monitored) 130 Respiratory Rate 14 Blood Pressure 123/79 Weight 52.3 kg What to do next Instructions From Your Doctor Event Name Event Result Discharge Activity Ambulate as tolerated Discharge Restrictions No driving Discharge Diet(s) Regular Pending Diagnostic Test Results Blood culture Discharge Instructions Return to ER if symptoms return or worsen. No driving. Seizure precautions - no swimming or bathing unsupervised as this is a drowning risk. New Follow Up Appointments after Discharge [facility] with [facility] When: 12/18/2024 10:45 AM EDT Comments: Patient needs to bring proof of insurance and photo ID to this hospital follow up appointment. Where: [address] [place] [address]- Follow Up with Thuy GILES, CINTIA Aguilar When: 12/15/2024 01:30 PM EDT Comments: This follow up is with Magdalene Boyle NP Where: [address] [place] [address]- Business (1) Follow Up with SHAQ THAKKAR When: Within 7 to 10 days Comments: Call for followup appointment - regarding sacral wound and perirectal fistula Where: [place] [address]- Business (1) Follow Up with Ja Pérez When: Within 2 to 4 weeks Comments: Call for followup appointment Where: [address], [facility] [address] [facility] [address] [place] [phone] Business (1) Follow Up with XXXX NONE When: In 0 days Where: [place] Medications What How Much When Instructions Next Dose New levetiracetam (Keppra 250 mg Tab) 2 Tablets By Mouth 2 times a day Refills: 1 Pickup at [facility]/pharmacy #[id number] 3/5 PM New naloxone (naloxone 4 mg/ 0.1 mL nasal spray) 4 Milligram Nasal Inhalation As Directed for suspected overdose symptoms Pickup at [facility]/pharmacy #6183 New oxycodone (oxyCODONE 5 mg Cap) 1 Capsules By Mouth Every 6 hours as needed for for pain Pickup at [facility]/pharmacy #6173 11/25 when needed Changed busPIRone (busPIRone 10 mg Tab) 1 Tablets By Mouth 2 times a day 3/5 PM Unchanged dicyclomine (Bentyl 10 mg Cap) 2 Capsules By Mouth 4 times a day 3/5 anytime Unchanged ondansetron (ondansetron 4 mg Dis Tab) 1 Tablets By Mouth Every 6 hours 3/5 anytime Unchanged promethazine (promethazine 25 mg Tab) 1 Tablets By Mouth Every 6 hours as nee (more content not included)... Normal [facility] Comment on above: Result Comment: Elec tronically Signed By: Omar HARTMANN, Mary Youngblood\Date and Time Signed: 11/25/24 16:08 EST HEMATOLOGYOrdered By: SYSTEM SYSTEM on 11-25-2024 Basophils/100 WBC (Bld) 0.3 % Normal 0.0 - 2.0 % Remisol Heme Basophils/Leukocytes Auto (Bld) [Pure # fraction] 0.0 E9/L Normal 0.0 - 0.2 E9/L Remisol Heme Eosinophils (Bld) [#/Vol] 0.2 E9/L Normal 0.0 - 0.5 E9/L Remisol Heme Eosinophils/100 WBC (Bld) 2.0 % Normal 0.0 - 8.0 % Remisol Heme Erythrocyte distribution width (RBC) [Ratio] 18.3 % High 10.9 - 14.2 % Remisol Heme Hematocrit (Bld) [Volume fraction] 30.5 % Low 34.0 - 46.0 % Remisol Heme Hemoglobin (Bld) [Mass/Vol] 10.1 g/dL Low 12.0 - 16.0 gm/dL Remisol Heme Lymphocytes (Bld) [#/Vol] 0.8 E9/L Low 1.0 - 4.0 E9/L Remisol Heme Lymphocytes/100 WBC (Bld) 9.6 % Low 14.0 - 50.0 % Remisol Heme MCH (RBC) [Entitic mass] 29.2 pg Normal 27.0 - 34.0 pg Remisol Heme MCHC (RBC) [Mass/Vol] 33.2 g/dL Normal 31.4 - 36.0 gm/dL Remisol Heme MCV (RBC) [Entitic vol] 87.8 fL Normal 80.0 - 100.0 fL Remisol Heme Monocytes (Bld) [#/Vol] 0.5 E9/L Normal 0.2 - 1.0 E9/L Remisol Heme Monocytes/100 WBC (Bld) 5.9 % Normal 4.0 - 14.0 % Remisol Heme Neutrophils (Bld) [#/Vol] 6.7 E9/L Normal 2.0 - 7.5 E9/L Remisol Heme Neutrophils/100 WBC (Bld) 82.2 % High 36.0 - 75.0 % Remisol Heme Platelet mean volume (Bld) [Entitic vol] 6.7 fL Normal 6.4 - 10.8 fL Remisol Heme Platelets (Bld) [#/Vol] 375.0 E9/L Normal 150.0 - 500.0 E9/L Remisol Heme RBC (Bld) [#/Vol] 3.5 E12/L Low 4.3 - 5.9 E12/L Rem[facility] Heme WBC corrected for nucl RBC Auto (Bld) [#/Vol] 8.2 E9/L Normal 4.0 - 11.0 E9/L Remisol Heme Inpatient Clinical Summaryon 11-25-2024 Inpatient Clinical Summary Inpatient Clinical Summary [address] [address] Clinical Summary Person Information: Name: ROLA AGUILAR Age: 29 Years : 1995 Sex: Female PCP: NONE, XXXX Marital Status: Single Race: White Ethnicity: Non- or Language: Honduran Visit Id: Visit Reason: Tachycardia; Altered mental status; AMS Speciality: Acuity: Enc Type: Inpatient Med Service: Medical Arrival: 11/22/2024 03:17:21 Discharge: Dispo Type: Admit to [facility] Address: [address] [place] [phone] Provider Notes: Diagnosis: 1:Acute respiratory failure with hypoxia; 2:Generalized seizure; 3:Metabolic acidosis; 4:Leukocytosis; 5:Metabolic encephalopathy; 6:Hypokalemia; 7:Hypomagnesemia; 8:Perianal fistula due to Crohn's disease; 9:Crohn's disease; 10:Generalized anxiety disorder; 11:Bipolar depression; 12:Pressure ulcer of coccygeal region, stage 3; 13:Pressure ulcer of left buttock, stage 3; 14:Pressure ulcer of right buttock, stage 3; 15:Protein-calorie malnutrition, severe; 16:Gram-positive bacteremia; Anal fistula, unspecified Problems Active Pressure ulcer of right buttock, stage 3 Pressure ulcer of left buttock, stage 3 Pressure ulcer of coccygeal region, stage 3 Smoker Anxiety disorder due to medical condition Generalized anxiety disorder Bipolar depression Sinus tachycardia S/P ileostomy Mechanical deep vein thrombosis (DVT) prophylaxis in place H/O psoriasis Crohn's disease Vitamin A deficiency Protein-calorie malnutrition, severe Smoking Status: Current vaping or e-cigarette use Functional Status: Sensory Deficits: History of Falls: Mobility Assistance Prior to Admission: Independent ADLs: Complete assist Current Level of Assistance for Self-Care/Mobility: Cognitive Status: Allergies HYDROmorphone (Unknown) Measurements: Height: 167 cm Weight: 52.3 kg Blood Pressure: 123 mmHg / 79 mmHg BMI: 20.44 kg/m2 Procedures No Procedures Documented Immunizations No Immunizations Documented This Visit Final Med List: acetaminophen-oxycodo ne (Percocet 5 mg-325 mg oral tablet) 1 Tablets By Mouth every 6 hours as needed as needed for pain. Refills: 0. busPIRone (busPIRone 10 mg Tab) cyproheptadine dicyclomine (Bentyl 10 mg Cap) 2 [...] By Mouth every 6 hours. Refills: 0. ondansetron (Zofran 4 mg Tab) [...] hours as needed for nausea/vomiting. Refills: 0. promethazine (promethazine 25 mg Tab) 1 Tablets By Mouth every 6 hours as needed as needed for nausea/vomiting. Refills: 0. sertraline (Zoloft) vedolizumab (Entyvio Pen 108 mg/0.68 mL subcutaneous solution) 1 mL, 0 Refill(s). Care Team Members: Attending Physician: Shelli Jaimes DO Consulting Physician: Sean Meehan PA-C, Aldo Hernandez; Jeff Marinelli MD Referring Physician: Follow up: With: Address: When: Jeff Marinelli MD, NEU [address] [place] [id number] Business (1) 11/22 (more content not included)... Normal [facility] Inpatient Patient Summaryon 11-25-2024 Inpatient Patient Summary Inpatient Patient Summary [address] [address] Patient Discharge Instructions PERSON INFORMATION Name: PEDRO LUIS AGUILARELOISA Ward Date of : 1995 Current Date: 11/25/2024 13:50:43 PHYSICIANS Admitting Physician: Dago OLVERA DO Primary Care Physician: KELLY, XXXX PCP Phone Number: Comment: Discharge Diagnosis: 1:Acute respiratory failure with hypoxia; 2:Generalized seizure; 3:Metabolic acidosis; 4:Leukocytosis; 5:Metabolic encephalopathy; 6:Hypokalemia; 7:Hypomagnesemia; 8:Perianal fistula due to Crohn's disease; 9:Crohn's disease; 10:Generalized anxiety disorder; 11:Bipolar depression; 12:Pressure ulcer of coccygeal region, stage 3; 13:Pressure ulcer of left buttock, stage 3; 14:Pressure ulcer of right buttock, stage 3; 15:Protein-calorie malnutrition, severe; 16:Gram-positive bacteremia; Anal fistula, unspecified Condition at Discharge: ROLA AGUILAR has been given the following list of follow-up instructions, prescriptions, and patient education materials: PATIENT FOLLOW-UP INFORMATION Diet: Discharge Activity: Discharge Restrictions: Wound Care Instructions: Remove Your Dressing In Days Call Your Doctor For: IF UNABLE TO CONTACT YOUR PHYSICIAN AND YOU FEEL IT IS AN EMERGENCY, GO TO THE NEAREST EMERGENCY ROOM OR CALL 911 Home Treatment: Devices/Equipment: None Special Services: Additional Instructions: Primary Care Physician to provide the following pending test results: Follow up: With: Address: When: Jeff Marinelli MD, NEU [address] [facility] [address] [place] [address] [facility] (1) 12/15/2024 1:30 PM Comments: This follow up is with Magdalene Boyle NP With: Address: When: [address] [place] [address] 12/18/2024 10:45 AM Comments: Patient needs to bring proof of insurance and photo ID to this hospital follow up appointment. With: Address: When: XXXX [place] , [place] In the event that this physician does not participate in your insurance network, please consult with your insurance company to find a nearby participating provider. Comment: LAUREN Stern KRISTEN D, have received the attached patient education materials/instruction s and have verbalized understanding: Patient Signature Date Clinican/Nurse Signature Date HERE ARE THE MEDICATION CHANGES THAT OCCURRED DURING YOUR HOSPITAL STAY Medications to Continue with No Changes Other Medications acetaminophen-oxycodo ne (Percocet 5 mg-325 mg oral tablet) 1 Tablets By Mouth every 6 hours as needed as needed for pain. Refills: 0. Last Dose: ____Next Dose: ____ busPIRone (busPIRone 10 mg Tab) Last Dose: ____Next Dose: ____ cyproheptadine Last Dose: ____Next Dose: ____ dicyclomine (Bentyl 10 mg Cap) 2 Capsules By Mouth 4 times a day. Refills: 0. Last Dose: ____Next Dose: ____ hydrOXYzine (Vistaril 25 mg Tab) 1-2 tab(s) By Mouth 4 times a day as needed as needed for anxiety. Refills: 0. Last Dose: ____Next Dose: ____ iron sucrose (Venofer) Last Dose: ____Next Dose: ____ metoclopramide (metoclopramide 10 mg oral tablet, disintegrating) 1 Tablets By Mouth every 6 hours as needed Nausea/Vomiting. Refills: 0. Last Dose: ____Next Dose: ____ metoclopramide (Reglan) Last Dose: ____Next Dose: ____ ondansetron (ondansetron 4 mg Dis Tab) 1 Tablets By Mouth every 6 hours. Refills: 0. Last Dose: ____Next Dose: ____ ondansetron (Zofran 4 mg Tab) 1 Tablets By Mouth every 8 hours as needed Nausea/Vomiting. Refills: 0. Last Dose: ____Next Dose: ____ ondansetron (Zofran 4 mg Tab) Last Dose: ____Next Dose: ____ ondansetron (Zofran ODT 4 mg Tab-Dis) 1 Tablets By Mouth every 8 hours. Refills: 0. Last Dose: ____Next Dose: ____ ondansetron (Zofran ODT 4 mg Tab-Dis) 1 Tablets By Mouth every 6 hours as needed Nausea/Vomiting. Refills: 0. Last Dose: ____Next Dose: ____ ondansetron (Zofran ODT 4 mg Tab-Dis) 1 Tablets By Mouth every 8 hours. Refills: 0. Last Dose: ____Next Dose: ____ ondansetron (Zofran ODT 4 mg Tab-Dis) 1 Tablets By Mouth every 8 hours as needed Nausea/Vomiting. Refills: 0. Last Dose: ____Next Dose: ____ ondansetron (Zofran ODT 4 mg Tab-Dis) 1 Tablets By Mouth every 8 hours as needed Nausea/Vomiting. Refills: 0. Last Dose: ____Next Dose: ____ predniSONE (predniSONE 10 mg Tab (more content not included)... [place] Interdisciplinary Note - Gilmar e Manageron 11-25-2024 Interdisciplinary Note - Laborer Operator Interdisciplinary Note - Laborer Operator Patient is awake and alert in bed, no family present. Previously rounded with Dr. Rodriguez and aware of plan to DC home today. Pt lives with boyfriend and mom [place] transport [place]. Pt is aware now set up with [facility], and aware appt scheduled and will be on DC paperwork. Ptremains agreeable to plan, and declines any further concerns or DC needs. Contact information provided and white board updated. [place] Comment on above: Result Comment: Elec tronically Signed By: Laurel HARTMANN, Heather\.reese\Date and Time Signed: 11/25/24 12:26 EST Lab Miscellaneous-LCon 11-25 Test Code 078155 Invalid Interpretation Code [facility] Comment on above: Order Comment: autoi mmune encephalitis panel serum Performed By: #### 1 [id number] #### [facility] [address] [place] [address] Test Name autoimmune ence Invalid Interpretation Code [facility] Comment on above: Order Comment: autoi mmune encephalitis panel serum Performed By: #### 1 [id number] #### [facility] [address] [place] [address] Reference Laboratory Testing Ordered By: Carolyn Spence on 11-25-2024 Sodium [Moles/Vol] 779451 mmol/L Invalid Interpretation Code [facility] SendOutsSS Test Name autoimmune ence Invalid Interpretation Code [facility] eGFRon 11-25-2024 eGFR 124 mL/min/1.73 m2 Normal >=59 [facility] Comment on above: Performed By: #### 1 [id number] #### [facility] [address] [place] [address] CBC w/ Auto Diffon Basophils/100 WBC (Bld) 0.6 % Normal 0.0-2.0 [facility] Comment on above: Performed By: #### 2 [id number] #### [facility] [address] [place] [address] Basophils/Leukocytes Auto (Bld) [Pure # fraction] 0.1 E9/L Normal 0.0-0.2 [facility] Comment on above: Performed By: #### 2 [id number] #### [facility] [address] [place] [address] Eosinophils (Bld) [#/Vol] 0.1 E9/L Normal 0.0-0.5 [facility] Comment on above: Performed By: #### 2 [id number] #### [facility] [address] [place] [address] Eosinophils/100 WBC (Bld) 1.6 % Normal 0.0-8.0 [facility] Comment on above: Performed By: #### 2 [id number] #### [facility] [address] [place] [address] Erythrocyte distribution width (RBC) [Ratio] 18.8 % High 10.9-14.2 [facility] Comment on above: Performed By: #### 2 [id number] #### [facility] [address] [place] [address] Hematocrit (Bld) [Volume fraction] 28.1 % Low 34.0-46.0 [facility] Comment on above: Performed By: #### 2 [id number] #### [facility] [address] [place] [address] Hemoglobin (Bld) [Mass/Vol] 9.2 g/dL Low 12.0-16.0 [facility] Comment on above: Performed By: #### 2 [id number] #### [facility] [address] [place] [address] Lymphocytes (Bld) [#/Vol] 0.7 E9/L Low 1.0-4.0 [facility] Comment on above: Performed By: #### 2 [id number] #### [facility] [address] [place] [address] Lymphocytes/100 WBC (Bld) 8.7 % Low 14.0-50.0 [facility] Comment on above: Performed By: #### 2 103960 #### [facility] [address] [place] [address] MCH (RBC) [Entitic mass] 28.9 pg Normal 27.0-34.0 [facility] Comment on above: Performed By: #### 2 [id number] #### [facility] [address] [place] [address] MCHC (RBC) [Mass/Vol] 32.9 g/dL Normal 31.4-36.0 [facility] Comment on above: Performed By: #### 2 [id number] #### [facility] [address] [place] [address] MCV (RBC) [Entitic vol] 87.9 fL Normal 80.0-100.0 [facility] Comment on above: Performed By: #### 2 [id number] #### [facility] [address] [place] [address] Monocytes (Bld) [#/Vol] 0.5 E9/L Normal 0.2-1.0 [facility] Comment on above: Performed By: #### 2 [id number] #### [facility] [address] [place] [address] Neutrophils (Bld) [#/Vol] 6.8 E9/L Normal 2.0-7.5 [facility] Comment on above: Performed By: #### 2 850719 #### [facility] [address] [place] [address] Neutrophils/100 WBC (Bld) 82.8 % High 36.0-75.0 [facility] Comment on above: Performed By: #### 2 [id number] #### [facility] [address] [place] [address] Platelet 312.0 E9/L Normal 150.0-500.0 [facility] Comment on above: Performed By: #### 2 [id number] #### [facility] [address] [place] [address] Platelet mean volume (Bld) [Entitic vol] 6.7 fL Normal 6.4-10.8 [facility] Comment on above: Performed By: #### 2 [id number] #### [facility] [address] [place] [address] RBC (Bld) [#/Vol] 3.2 E12/L Low 4.3-5.9 [facility] Comment on above: Performed By: #### 2 [id number] #### [facility] [address] [place] [address] WBC corrected for nucl RBC Auto (Bld) [#/Vol] 8.2 E9/L Normal 4.0-11.0 [facility] Comment on above: Performed By: #### 2 [id number] #### [facility] [address] [place] [address] CHEMISTRYOrdered By: SYSTEM SYSTEM on 11-24-2024 Albumin [Mass/Vol] 2.2 g/dL Low 3.3 - 5.0 gm/dL Rem[facility] Chem Albumin/Globulin [Mass ratio] 0.7 {ratio} Low 1.1 - 2.2 [facility] Chem ALP [Catalytic activity/Vol] 101 [iU]/d High 21 - 98 Int._Unit/L [facility] Chem ALT No additional P-5'-P [Catalytic activity/Vol] 17 [iU]/d Normal 6 - 46 Int._Unit/L [facility] Chem Anion gap [Moles/Vol] 9 mmol/L Normal 6 - 16 mEq/L R emisol Chem AST [Catalytic activity/Vol] 15 [iU]/d Normal 5 - 43 Int._Unit/L [facility] Chem Bilirubin [Mass/Vol] 0.5 mg/dL Normal 0.0 - 1 .1 mg/dL [facility] Chem Calcium [Mass/Vol] 7.6 mg/dL Low 8.9 - 11. 1 mg/dL [facility] Chloride [Moles/Vol] 116 mmol/L High 101 - 1 11 mmol/L [facility] Chem CO2 [Moles/Vol] 18 mmol/L Low 21 - 31 mmol/L Remis ol Chem Creatinine [Mass/Vol] 0.8 mg/dL Normal 0.5 - 1.3 mg/dL [facility] Chem eGFR 102 mL/min/1.73 m2 Normal >=59mL/mi n/1.7 3 m2 [facility] Globulin (S) [Mass/Vol] 3.1 g/dL Normal 1.4 - 4.0 gm/dL [facility] Chem Glucose [Mass/Vol] 77 mg/dL Normal 55 - 199 mg/dL Re misol Chem Magnesium [Mass/Vol] 1.6 mg/dL Normal 1.3 - 2 .4 mg/dL [facility] Chem Phosphate [Mass/Vol] 3.8 mg/dL Normal 1.9 - 4 .6 mg/dL [facility] Chem Potassium [Moles/Vol] 3.2 mmol/L Low 3.5 - 5.3 mmol/L [facility] Chem Protein [Mass/Vol] 5.3 g/dL Low 6.0 - 7.8 gm/dL [facility] Chem Sodium [Moles/Vol] 140 mmol/L Normal 135 - 145 mmol/L [facility] Chem Urea nitrogen [Mass/Vol] 9 mg/dL Normal 5 - 21 mg/dL [facility] Chem Urea nitrogen/Creatinine [Mass ratio] 11 mg/mg Normal 10 - 20 [facility] Vanco Pk 39 microgram/mL Normal 20 - 40 mcg/mL Remis ol Chem CHEMISTRYOrdered By: Kristal ROP User on 11-24-2024 Glucose [Mass/Vol] 76 mg/dL Normal 55 - 99 mg/dL FT C POC Subsection Comment on above: Result Comment: Dilma jaime Meter POC Device SN [id number] Invalid Interpretation Code [facility] POC Subsection POC Username GURJIT DEGROOT Invalid Interpretation Code [facility] POC Subsection Sodium [Moles/Vol] 115137094 mmol/L Invalid Interpretation Code [facility] POC Subsection CMPon 11-24-2024 Albumin [Mass/Vol] 2.2 g/dL Low 3.3-5.0 [facility] Comment on above: Performed By: #### 2 [id number] #### [facility] [address] [place] [address] Albumin/Globulin (S) [Mass conc ratio] 0.7 Low 1.1-2.2 [facility] Comment on above: Performed By: #### 2 [id number] #### [facility] [address] [place] [address] ALP [Catalytic activity/Vol] 101 Int._Unit/L High 21-98 [facility] Comment on above: Performed By: #### 2 [id number] #### [facility] [address] [place] [address] ALT No additional P-5'-P [Catalytic activity/Vol] 17 Int._Unit/L Normal 6-46 [facility] Comment on above: Performed By: #### 2 [id number] #### [facility] [address] [place] [address] Anion gap [Moles/Vol] 9 mmol/L Normal 6-16 [facility] Comment on above: Performed By: #### 2 [id number] #### [facility] [address] [place] [address] AST [Catalytic activity/Vol] 15 Int._Unit/L Normal 5-43 [facility] Comment on above: Performed By: #### 2 [id number] #### [facility] [address] [place] [address] Bilirubin [Mass/Vol] 0.5 mg/dL Normal 0.0-1.[address] [facility] Comment on above: Performed By: #### 2 [id number] #### [facility] [address] [place] [address] Calcium [Mass/Vol] 7.6 mg/dL Low 8.9-11.1 [facility] Comment on above: Performed By: #### 2 [id number] #### [facility] [address] [place] [address] Chloride [Moles/Vol] 116 mmol/L High 101-[address] [facility] Comment on above: Performed By: #### 2 [id number] #### [facility] [address] [place] [address] CO2 [Moles/Vol] 18 mmol/L Low 21-31 [facility] Comment on above: Performed By: #### 2 [id number] #### [facility] [address] [place] [address] Creatinine [Mass/Vol] 0.8 mg/dL Normal 0.5-1.3 [facility] Comment on above: Performed By: #### 2 797998 #### [facility] [address] [place] [address] Globulin (S) [Mass/Vol] 3.1 g/dL Normal 1.4-4.0 [facility] Comment on above: Performed By: #### 2 700346 #### [facility] [address] [place] [address] Glucose [Mass/Vol] 77 mg/dL Normal 55-199 [facility] Comment on above: Performed By: #### 2 [id number] #### [facility] [address] [place] [address] Potassium [Moles/Vol] 3.2 mmol/L Low 3.5-5.3 [facility] Comment on above: Performed By: #### 2 [id number] #### [facility] [address] [place] [address] Protein [Mass/Vol] 5.3 g/dL Low 6.0-7.8 [facility] Comment on above: Performed By: #### 2 [id number] #### [facility] [address] [place] [address] Sodium [Moles/Vol] 140 mmol/L Normal 135-145 [facility] Comment on above: Performed By: #### 2 038300 #### [facility] [address] [place] [address] Urea nitrogen [Mass/Vol] 9 mg/dL Normal 5-21 [facility] Comment on above: Performed By: #### 2 [id number] #### [facility] [address] [place] [address] Urea nitrogen/Creatinine [Mass ratio] 11 No Units Normal 10-20 [facility] Comment on above: Performed By: #### 2 [id number] #### [facility] [address] [place] [address] Capillary Glucose POCon Glucose [Mass/Vol] 76 mg/dL Normal 55-99 [facility] Comment on above: Result Comment: Dilma jaime Meter Performed By: #### 2 [id number] #### [facility] [address] [place] [address] HEMATOLOGYOrdered By: SYSTEM SYSTEM on 11-24-2024 Basophils/100 WBC (Bld) 0.6 % Normal 0.0 - 2.0 % Rem[facility] Heme Basophils/Leukocytes Auto (Bld) [Pure # fraction] 0.1 E9/L Normal 0.0 - 0.2 E9/L [facility] Eosinophils (Bld) [#/Vol] 0.1 E9/L Normal 0.0 - 0.5 E9/L [facility] Eosinophils/100 WBC (Bld) 1.6 % Normal 0.0 - 8.0 % [facility] Erythrocyte distribution width (RBC) [Ratio] 18.8 % High 10.9 - 14.2 % [facility] Hematocrit (Bld) [Volume fraction] 28.1 % Low 34.0 - 46.0 % [facility] Hemoglobin (Bld) [Mass/Vol] 9.2 g/dL Low 12.0 - 16.0 gm/dL [facility] Lymphocytes (Bld) [#/Vol] 0.7 E9/L Low 1.0 - 4.0 E9/L [facility] Lymphocytes/100 WBC (Bld) 8.7 % Low 14.0 - 50.0 % [facility] Hem[facility] MCH (RBC) [Entitic mass] 28.9 pg Normal 27.0 - 34.0 pg [facility] Heme MCHC (RBC) [Mass/Vol] 32.9 g/dL Normal 31.4 - 36.0 gm/dL [facility] MCV (RBC) [Entitic vol] 87.9 fL Normal 80.0 - 100.0 fL [facility] Monocytes (Bld) [#/Vol] 0.5 E9/L Normal 0.2 - 1.0 E9/L [facility] Monocytes/100 WBC (Bld) 6.3 % Normal 4.0 - 14.0 % [facility] Neutrophils (Bld) [#/Vol] 6.8 E9/L Normal 2.0 - 7.5 E9/L [facility] Neutrophils/100 WBC (Bld) 82.8 % High 36.0 - 75.0 % [facility] Platelet 312.0 E9/L Normal 150.0 - 500.0 E9/L [facility] Platelet mean volume (Bld) [Entitic vol] 6.7 fL Normal 6.4 - 10.8 fL [facility] RBC (Bld) [#/Vol] 3.2 E12/L Low 4.3 - 5.9 E12/L [facility] WBC corrected for nucl RBC Auto (Bld) [#/Vol] 8.2 E9/L Normal 4.0 - 11.0 E9/L [facility] Inpatient Clinical Summaryon 11-24-2024 Inpatient Clinical Summary Inpatient Clinical Summary [address] [address] Clinical Summary Person Information: Name: ROLA AGUILAR Age: 29 Years : 1995 Sex: Female PCP: NONE, XXXX Marital Status: Single Race: White Ethnicity: Non- or Language: Honduran Visit Id: Visit Reason: Tachycardia; Altered mental status; AMS Speciality: Acuity: Enc Type: Inpatient Med Service: Medical Arrival: 11/22/2024 03:17:21 Discharge: Dispo Type: Admit to [facility] Address: [address] [place] [id number] Provider Notes: Diagnosis: 1:Acute respiratory failure with hypoxia; 2:Generalized seizure; 3:Metabolic acidosis; 4:Leukocytosis; 5:Metabolic encephalopathy; 6:Hypokalemia; 7:Hypomagnesemia; 8:Perianal fistula due to Crohn's disease; 9:Crohn's disease; 10:Generalized anxiety disorder; 11:Bipolar depression; 12:Pressure ulcer of coccygeal region, stage 3; 13:Pressure ulcer of left buttock, stage 3; 14:Pressure ulcer of right buttock, stage 3; 15:Protein-calorie malnutrition, severe; 16:Gram-positive bacteremia; Anal fistula, unspecified Problems Active Pressure ulcer of right buttock, stage 3 Pressure ulcer of left buttock, stage 3 Pressure ulcer of coccygeal region, stage 3 Smoker Anxiety disorder due to medical condition Generalized anxiety disorder Bipolar depression Sinus tachycardia S/P ileostomy Mechanical deep vein thrombosis (DVT) prophylaxis in place H/O psoriasis Crohn's disease Vitamin A deficiency Protein-calorie malnutrition, severe Smoking Status: Current vaping or e-cigarette use Functional Status: Sensory Deficits: History of Falls: Mobility Assistance Prior to Admission: Independent ADLs: Complete assist Current Level of Assistance for Self-Care/Mobility: Cognitive Status: Allergies HYDROmorphone (Unknown) Measurements: Height: 167 cm Weight: 54.6 kg Blood Pressure: 91 mmHg / 62 mmHg BMI: 20.44 kg/m2 Procedures No Procedures Documented Immunizations No Immunizations Documented This Visit Final Med List: acetaminophen-oxycodo ne (Percocet 5 mg-325 mg oral tablet) 1 [...] By Mouth every 6 hours. Refills: 0. ondansetron (Zofran 4 mg Tab) [...] hours as needed for nausea/vomiting. Refills: 0. promethazine (promethazine 25 mg Tab) 1 Tablets By Mouth every 6 hours as needed as needed for nausea/vomiting. Refills: 0. sertraline (Zoloft) vedolizumab (Entyvio Pen 108 mg/0.68 mL subcutaneous solution) 1 mL, 0 Refill(s). Care Team Members: Attending Physician: Shelli Jaimes DO Consulting Physician: Aldo Estrada Jr., PA-C; Jeff Marinelli MD Referring Physician: Follow up: With: Address: When: [place] [id number] 12/18/2024 10:45 AM Comments: Patient needs to bring pro (more content not included)... 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; 9:Crohn's disease; 10:Generalized anxiety disorder; 11:Bipolar depression; 12:Pressure ulcer of coccygeal region, stage 3; 13:Pressure ulcer of left buttock, stage 3; 14:Pressure ulcer of right buttock, stage 3; 15:Protein-calorie malnutrition, severe; 16:Gram-positive bacteremia; Anal fistula, unspecified Condition at Discharge: ROLA AGUILAR has been given the following list of follow-up instructions, prescriptions, and patient education materials: PATIENT FOLLOW-UP INFORMATION Diet: Discharge Activity: Discharge Restrictions: Wound Care Instructions: Remove Your Dressing In Days Call Your Doctor For: IF UNABLE TO CONTACT YOUR PHYSICIAN AND YOU FEEL IT IS AN EMERGENCY, GO TO THE NEAREST EMERGENCY ROOM OR CALL 911 Home Treatment: Devices/Equipment: None Special Services: Additional Instructions: Primary Care Physician to provide the following pending test results: Follow up: With: Address: When: [facility] [address] [place] [address] 12/18/2024 10:45 AM Comments: Patient needs to bring proof of insurance and photo ID to this hospital follow up appointment. With: Address: When: [place]X [place] With: Address: When: Jeff Marinelli MD, [facility] [address] [place] [address] Within 2 to 4 weeks In the event that this physician does not participate in your insurance network, please consult with your insurance company to find a nearby participating provider. Comment: ILAUREN KRISTEN D, have received the attached patient education materials/instruction s and have verbalized understanding: Patient Signature Date Clinican/Nurse Signature Date HERE ARE THE MEDICATION CHANGES THAT OCCURRED DURING YOUR HOSPITAL STAY Medications to Continue with No Changes Other Medications acetaminophen-oxycodo ne (Percocet 5 mg-325 mg oral tablet) 1 Tablets By Mouth every 6 hours as needed as needed for pain. Refills: 0. Last Dose: ____Next Dose: ____ cyproheptadine Last Dose: ____Next Dose: ____ dicyclomine (Bentyl 10 mg Cap) 2 Capsules By Mouth 4 times a day. Refills: 0. Last Dose: ____Next Dose: ____ hydrOXYzine (Vistaril 25 mg Tab) 1-2 tab(s) By Mouth 4 times a day as needed as needed for anxiety. Refills: 0. Last Dose: ____Next Dose: ____ iron sucrose (Venofer) Last Dose: ____Next Dose: ____ metoclopramide (metoclopramide 10 mg oral tablet, disintegrating) 1 Tablets By Mouth every 6 hours as needed Nausea/Vomiting. Refills: 0. Last Dose: ____Next Dose: ____ metoclopramide (Reglan) Last Dose: ____Next Dose: ____ ondansetron (ondansetron 4 mg Dis Tab) 1 Tablets By Mouth every 6 hours. Refills: 0. Last Dose: ____Next Dose: ____ ondansetron (Zofran 4 mg Tab) 1 Tablets By Mouth every 8 hours as needed Nausea/Vomiting. Refills: 0. Last Dose: ____Next Dose: ____ ondansetron (Zofran 4 mg Tab) Last Dose: ____Next Dose: ____ ondansetron (Zofran ODT 4 mg Tab-Dis) 1 Tablets By Mouth every 8 hours. Refills: 0. Last Dose: ____Next Dose: ____ ondansetron (Zofran ODT 4 mg Tab-Dis) 1 Tablets By Mouth every 6 hours as needed Nausea/Vomiting. Refills: 0. Last Dose: ____Next Dose: ____ ondansetron (Zofran ODT 4 mg Tab-Dis) 1 Tablets By Mouth every 8 hours. Refills: 0. Last Dose: ____Next Dose: ____ ondansetron (Zofran ODT 4 mg Tab-Dis) 1 Tablets By Mouth every 8 hours as needed Nausea/Vomiting. Refills: 0. Last Dose: ____Next Dose: ____ ondansetron (Zofran ODT 4 mg Tab-Dis) 1 Tablets By Mouth every 8 hours as needed Nausea/Vomiting. Refills: 0. Last Dose: ____Next Dose: ____ predniSONE (predniSONE 10 mg Tab) as directed By Mouth As Directed. 6 tabs for 4 days,5 tabs for 4 days,4 tabs for 4 days,3 tabs for 4 days, then resume your maintenance 20 mg of pred (more content not included)... Normal [facility] Interdisciplinary Note - [place] e Manageron 11-24-2024 Interdisciplinary Note - Laborer Operator Interdisciplinary Note - Laborer Operator Patient is awake and alert in bed, previously rounded with Dr. Rodriguez. Patient is awake and alert in bed, boyfriend at bedside. Pt is aware of plan to stay in hospital today pending LP results. PT is on room air, states lives with her boyfriend and her mom will transport at [place]. Declines any concerns or [place] needs Pt does not have a PCP, does not have preference, willing to see anyone in [place]. admin secretary updated and will schedule with [facility]. . insurance information reviewed and DME discussed. Contact information provided and white board updated.; Normal [facility] Comment on above: Result Comment: Elec tronically Signed By: Laurel HARTMANN, Heather\.reese\Date and Time Signed: 11/24/24 12:02 EST MRI Brain w/ + w/o Contrasto n 11-24-2024 MRI Brain w/ + w/o Contrast Exam Date/Time: 11/24/2024 16:04 EST Reason for Exam: Seizures Report IMPRESSION: SMALL FOCAL AREAS SIGNAL INTENSITY CHANGE RIGHT POSTERIOR PARIETAL CORTEX AND ADJACENT SUBCORTICAL WHITE MATTER, DISCUSSED IN THE COMMENT. CLINICAL CORRELATION AND SERIAL FOLLOW-UP MRI STUDIES (WITHOUT AND WITH INTRAVENOUS CONTRAST) ARE SUGGESTED. CLINICAL HISTORY: Seizures COMPARISON: CT and CTA of 11/22/2024. COMMENT: Unenhanced and intravenous contrast enhanced images were obtained. The ventricles and basal cisterns and cortical sulci appear normal. There is no mass effect nor midline shift. On T2 weighted and FLAIR images, there are multiple small focal areas of increased signal intensity involving cerebral white matter in subcortical distribution, that are nonspecific, but possibly related to small vessel ischemic changes. On diffusion-weighted images, there are small focal areas of increased signal intensity involving cortex and adjacent subcortical white matter in the right posterior parietal lobe parasagittally, of mildly increased signal intensity on ADC images, and of increased signal intensity on T2-weighted and FLAIR images. These focal areas do not contrast enhance. The signal intensity changes are nonspecific, but suggest relatively recent cortical infarction, but beyond the acute phase. T2 shine through effect could also account for the findings. Low-grade neoplasm is not excluded, as low-grade neoplasm (glioma) may not enhance. Postictal focus could also account for this appearance. No other restricted diffusion is noted on the diffusion-weighted images. No abnormal contrast enhancement nor contrast enhancing lesion is identified in the brain. No parenchymal brain hemorrhage is evident on the gradient echo hemo sequence. Technical Comments: Contrast: Vueway Ordering Provider: Ted Petersen FINAL REPORT Dictated: 11/24/2024 5:07 pm Shelli Anand M.D. Signed (Electronic Signature): 11/24/2024 5:07 pm Signed by: Shelli Anand M.D. Transcribed by: CLARICE Technologist: LUIS CARLOS Normal [facility] Magnesiumon 11-24-2024 Magnesium [Mass/Vol] 1.6 mg/dL Normal 1.3-2.[address] [facility] Comment on above: Performed By: #### 2 [id number] #### [facility] [address] [place] [address] No Panel InformationOrdered By: [facility] on 11-24-2024 Blood Culture Charcoal No growth at 1 da y. Final to follow at 7 days. [facility] Phosphoruson 11-24-2024 Phosphate [Mass/Vol] 3.8 mg/dL Normal 1.9-4.[address] [facility] Comment on above: Performed By: #### 2 [id number] #### [facility] [address] [place] [address] Vanco Peakon 11-24-2024 Vanco Pk 39 microgram/mL Normal 20-40 [facility] Comment on above: Performed By: #### 2 [id number] #### [facility] [address] [place] [address] Vanco TroughOrdered By: SYST EM SYSTEM on 11-24-2024 Vanco Tr 25 microgram/mL Abnormal 10-20 [facility] C hem Comment on above: Result Comment: Crit ical Result Verified by Repeat Analysis Critical Result S_VANC_T:25 Called to and read back by: EDITH LEI at: 11/24/2024 11:59:03 by:[email or web address] Order Comment: pleas e draw 1 hour before next vanco dose Result Comment: Crit ical Result Verified by Repeat Analysis Critical Result S_VANC_T:25 Called to and read back by: EDITH LEI at: 11/24/2024 11:59:03 by:[email or web address] Performed By: #### 2 [id number] #### [facility] [address] [place] [address] eGFRon 11-24-2024 eGFR 102 mL/min/1.73 m2 Normal >=59 [facility] Comment on above: Performed By: #### 1 [id number] #### [facility] [address] [place] [address] BMPon 11-23-2024 CO2 [Moles/Vol] 18 mmol/L Low 21-31 [facility] Comment on above: Performed By: #### 2 [id number] #### [facility] [address] [place] [address] Creatinine [Mass/Vol] 0.6 mg/dL Normal 0.5-1.3 [facility] Comment on above: Performed By: #### 2 [id number] #### [facility] [address] [place] [address] Glucose [Mass/Vol] 78 mg/dL Normal 55-199 [facility] Comment on above: Performed By: #### 2 [id number] #### [facility] [address] [place] [address] Potassium [Moles/Vol] 3.5 mmol/L Normal 3.5-5.3 [facility] Comment on above: Performed By: #### 2 [id number] #### [facility] [address] [place] [address] Sodium [Moles/Vol] 143 mmol/L Normal 135-145 [facility] Comment on above: Performed By: #### 2 [id number] #### [facility] [address] [place] [address] Urea nitrogen [Mass/Vol] 11 mg/dL Normal 5-21 [facility] Comment on above: Performed By: #### 2 [id number] #### [facility] [address] [place] [address] Urea nitrogen/Creatinine [Mass ratio] 18 No Units Normal 10-20 [facility] Comment on above: Performed By: #### 2 [id number] #### [facility] [address] [place] [address] Anion gap [Moles/Vol] 8 mmol/L Normal 6-16 [facility] Comment on above: Performed By: #### 2 [id number] #### [facility] [address] [place] [address] Calcium [Mass/Vol] 7.1 mg/dL Low 8.9-11.1 [facility] Comment on above: Result Comment: Crit ical Result S_CA.1 Called to and read back by: TRIXIE BIRMINGHAM at: 11/23/2024 07:06:03 by:[id number] Performed By: #### 2 [id number] #### [facility] [address] [place] [address] Chloride [Moles/Vol] 121 mmol/L Abnormal 101-111 [facility] Comment on above: Result Comment: Crit ical Result Verified by Repeat Analysis Critical Result S_CL:121 Called to and read back by: TRIXIE BIRMINGHAM at: 11/23/2024 07:06:03 by:[id number] Performed By: #### 2 [id number] #### [facility] [address] [place] [address] CBC w/ Auto Diffon 5 Basophils/100 WBC (Bld) 0.2 % Normal 0.0-2.0 [facility] Comment on above: Performed By: #### 2 [id number] #### [facility] [address] [place] [address] Basophils/Leukocytes Auto (Bld) [Pure # fraction] 0.0 E9/L Normal 0.0-0.2 [facility] Comment on above: Performed By: #### 2 [id number] #### [facility] [address] [place] [address] Eosinophils (Bld) [#/Vol] 0.1 E9/L Normal 0.0-0.5 [facility] Comment on above: Performed By: #### 2 [id number] #### [facility] [address] [place] [address] Eosinophils/100 WBC (Bld) 0.6 % Normal 0.0-8.0 [facility] Comment on above: Performed By: #### 2 [id number] #### [facility] [address] [place] [address] Erythrocyte distribution width (RBC) [Ratio] 19.0 % High 10.9-14.2 [facility] Comment on above: Performed By: #### 2 [id number] #### [facility] [address] [place] [address] Hematocrit (Bld) [Volume fraction] 24.7 % Low 34.0-46.0 [facility] Comment on above: Performed By: #### 2 [id number] #### [facility] [address] [place] [address] Hemoglobin (Bld) [Mass/Vol] 8.0 g/dL Low 12.0-16.0 [facility] Comment on above: Performed By: #### 2 [id number] #### [facility] [address] [place] [address] Lymphocytes (Bld) [#/Vol] 0.6 E9/L Low 1.0-4.0 [facility] Comment on above: Performed By: #### 2 [id number] #### [facility] [address] [place] [address] Lymphocytes/100 WBC (Bld) 7.0 % Low 14.0-50.0 [facility] Comment on above: Performed By: #### 2 [id number] #### [facility] [address] [place] [address] MCH (RBC) [Entitic mass] 28.8 pg Normal 27.0-34.0 [facility] Comment on above: Performed By: #### 2 [id number] #### [facility] [address] [place] [address] MCHC (RBC) [Mass/Vol] 32.4 g/dL Normal 31.4-36.0 [facility] Comment on above: Performed By: #### 2 [id number] #### [facility] [address] [place] [address] MCV (RBC) [Entitic vol] 88.9 fL Normal 80.0-100.0 [facility] Comment on above: Performed By: #### 2 [id number] #### [facility] [address] [place] [address] Monocytes (Bld) [#/Vol] 0.6 E9/L Normal 0.2-1.0 [facility] Comment on above: Performed By: #### 2 [id number] #### [facility] [address] [place] [address] Neutrophils (Bld) [#/Vol] 6.9 E9/L Normal 2.0-7.5 [facility] Comment on above: Performed By: #### 2 [id number] #### [facility] [address] [place] [address] Neutrophils/100 WBC (Bld) 84.7 % High 36.0-75.0 [facility] Comment on above: Performed By: #### 2 987221 #### [facility] [address] [place] [address] Platelet mean volume (Bld) [Entitic vol] 6.6 fL Normal 6.4-10.8 [facility] Comment on above: Performed By: #### 2 [id number] #### [facility] [address] [place] [address] Platelets (Bld) [#/Vol] 298.0 E9/L Normal 150.0-500.0 [facility] Comment on above: Performed By: #### 2 926711 #### [facility] [address] [place] [address] RBC (Bld) [#/Vol] 2.8 E12/L Low 4.3-5.9 [facility] Comment on above: Performed By: #### 2 [id number] #### [facility] [address] [place] [address] WBC corrected for nucl RBC Auto (Bld) [#/Vol] 8.1 E9/L Normal 4.0-11.0 [facility] Comment on above: Performed By: #### 2 744905 #### [facility] [address] [place] [address] CHEMISTRYOrdered By: Lab ROP User on 11-23-2024 Glucose [Mass/Vol] 71 mg/dL Normal 55 - 99 mg/dL FTM C POC Subsection Comment on above: Result Comment: Dilma jaime Meter POC Device SN [id number] Invalid Interpretation Code [facility] POC Subsection POC Username JANIA ERNST Invalid Interpretation Code [facility] POC Subsection Sodium [Moles/Vol] 746084311 mmol/L Invalid Interpretation Code [facility] POC Subsection Glucose [Mass/Vol] 106 mg/dL High 55 - 99 mg/dL FTM C POC Subsection Comment on above: Result Comment: Dlima jaime Meter POC Device SN [id number] 1 Invalid Interpretation Code [facility] POC Subsection POC Username JANIA ERNST Invalid Interpretation Code [facility] POC Subsection Sodium [Moles/Vol] 325779278 mmol/L Invalid Interpretation Code [facility] POC Subsection CHEMISTRYOrdered By: SYSTEM SYSTEM on 11-23-2024 Glucose (CSF) [Mass/Vol] 45 mg/dL Low 46 - 70 mg/dL Remisol Chem Protein CSF 21.0 mg/dL Normal 14.0 - 45.0 mg/dL Remisol Chem Glucose (CSF) [Mass/Vol] 44 mg/dL Low 46 - 70 mg/dL Remisol Chem Protein CSF 25.0 mg/dL Normal 14.0 - 45.0 mg/dL Remisol Chem Anion gap [Moles/Vol] 8 mmol/L Normal 6 - 16 mEq/L R emisol Chem Calcium [Mass/Vol] 7.1 mg/dL Low 8.9 - 11. 1 mg/dL [facility] Comment on above: Result Comment: Crit ical Result S_CA.1 Called to and read back by: TRIXIE BIRMINGHAM at: 11/23/2024 07:06:03 by:[id number] Chloride [Moles/Vol] 121 mmol/L Invalid Interpretation Code 101 - 111 mmol/L [facility] Comment on above: Result Comment: Crit ical Result Verified by Repeat Analysis Critical Result S_CL:121 Called to and read back by: TRIXIE BIRMINGHAM at: 11/23/2024 07:06:03 by:[id number] CO2 [Moles/Vol] 18 mmol/L Low 21 - 31 mmol/L Remis ol Chem Creatinine [Mass/Vol] 0.6 mg/dL Normal 0.5 - 1.3 mg/dL [facility] Chem eGFR 124 mL/min/1.73 m2 Normal >=59mL/mi n/1.7 3 m2 [facility] Chem Glucose [Mass/Vol] 78 mg/dL Normal 55 - 199 mg/dL Re misol Chem Potassium [Moles/Vol] 3.5 mmol/L Normal 3.5 - 5.3 mmol/L [facility] Chem Sodium [Moles/Vol] 143 mmol/L Normal 135 - 145 mmol/L [facility] Chem TSH Qn 2.02 m[IU]/L Normal 0.34 - 5.60 mcIU/mL [facility] Chem Urea nitrogen [Mass/Vol] 11 mg/dL Normal 5 - 21 mg/dL [facility] Chem Urea nitrogen/Creatinine [Mass ratio] 18 mg/mg Normal 10 - 20 [facility] Chem CSF Cell Counton 11-23-2024 Clarity (CSF) CLEAR Normal [facility] Comment on above: Order Comment: tube 3 Performed By: #### 2 [id number] #### [facility] [address] [place] [address] Color (CSF) Colorless Normal [facility] Comment on above: Order Comment: tube 3 Performed By: #### 2 [id number] #### [facility] [address] [place] [address] RBC Auto (CSF) [#/Vol] 1 cells/mcL High <=0 F [facility] Comment on above: Order Comment: tube 3 Performed By: #### 2 [id number] #### [facility] [address] [place] [address] TNC CSF 0 cells/mcL Normal 0-5 [facility] Comment on above: Order Comment: tube 3 Result Comment: TNC: Total Nucleated Cells include WBC's and other cells present, (eg, mesothelial cells and other lining cells) Performed By: #### 2 [id number] #### [facility] [address] [place] [address] Tube Num CSF 3 Invalid Interpretation Code [facility] Comment on above: Order Comment: tube 3 Performed By: #### 2 [id number] #### [facility] [address] [place] [address] Clarity (CSF) CLEAR Normal [facility] Comment on above: Order Comment: tube 1 Performed By: #### 2 [id number] #### [facility] [address] [place] [address] Color (CSF) Colorless Normal [facility] Comment on above: Order Comment: tube 1 Performed By: #### 2 [id number] #### [facility] [address] [place] [address] RBC Auto (CSF) [#/Vol] 14 cells/mcL High <=0 [facility] Comment on above: Order Comment: tube 1 Performed By: #### 2 [id number] #### [facility] [address] [place] [address] TNC CSF 1 cells/mcL Normal 0-5 [facility] Comment on above: Order Comment: tube 1 Result Comment: TNC: Total Nucleated Cells include WBC's and other cells present, (eg, mesothelial cells and other lining cells) Performed By: #### 2 [id number] #### [facility] [address] [place] [address] Tube Num CSF 1 Invalid Interpretation Code [facility] Comment on above: Order Comment: tube 1 Performed By: #### 2 [id number] #### [facility] [address] [place] [address] CSF Glucoseon 11-23-2024 Glucose (CSF) [Mass/Vol] 45 mg/dL Low 46-70 [facility] Comment on above: Order Comment: tube 3 Performed By: #### 2 [id number] #### [facility] [address] [place] [address] Glucose (CSF) [Mass/Vol] 44 mg/dL Low 46-70 [facility] Comment on above: Order Comment: tube 1 Performed By: #### 2 [id number] #### [facility] [address] [place] [address] CSF PCR Panelon 11-23-2024 CSF PCR Panel Cytomegalovirus Not detected Cryptococcus neoformans or gattii 9002 Not detected Escherichia coli K1 Not detected Enterovirus Not detected Haemophilus influenzae (reported as H flu) Not detected Human herpesvirus 6 Not detected Herpes simplex virus 1 Not detected Herpes simplex virus 2 DNA [Presence] in Cerebral spinal fluid by CORONA with non-probe detection Not detected Listeria monocytogenes (reported as listeriosis) Not detected Neisseria meningitidis - reported as meningococcal disease Not detected Human parechovirus Not detected Streptococcus pneumoniae - reported at ISP Not detected Group B Strep (Streptococcus agalactiae) Not detected Varicella zoster virus Not detected PERFORMED BY: [address] [address] PATHOLOGIST MANAGEMENT PROFESSIONAL NISA DEVINE M.D. Normal [facility] Comment on above: Performed By: #### C SF PCR PANEL #### [address] [address] [facility] [[email or web address]] CSF Proteinon 11-23-2024 Protein CSF 21.0 mg/dL Normal 14.0-45.0 [facility] Comment on above: Order Comment: tube 3 Performed By: #### 2 [id number] #### [facility] [address] [place] [address] Protein CSF 25.0 mg/dL Normal 14.0-45.0 [facility] Comment on above: Order Comment: tube 1 Performed By: #### 2 [id number] #### [facility] [address] [place] [address] Capillary Glucose POCon Glucose [Mass/Vol] 71 mg/dL Normal 55-99 [facility] Comment on above: Result Comment: Dilma jaime Meter Performed By: #### 2 [id number] #### [facility] [address] [place] [address] Glucose [Mass/Vol] 106 mg/dL High 55-99 [facility] Comment on above: Result Comment: Dilma jaime Meter Performed By: #### 2 [id number] #### [facility] [address] [place] [address] Glucose [Mass/Vol] 68 mg/dL Normal 55-99 [facility] Comment on above: Performed By: #### 2 [id number] #### [facility] [address] [place] [address] Glucose [Mass/Vol] 91 mg/dL Normal 55-99 [facility] Comment on above: Result Comment: Dilma jaime Meter Performed By: #### 2 [id number] #### [facility] [address] [place] [address] Glucose [Mass/Vol] 69 mg/dL Normal 55-99 [facility] Comment on above: Result Comment: Tanya landaverde RN/ Performed By: #### 2 [id number] #### [facility] [address] [place] [address] EEGon 11-23-2024 EEG EEG CLINICAL HISTORY: 29-year-old woman with Crohn's who presents for evaluation after experiencing new onset generalized seizures. At the time of this EEG study she was intubated and sedated with propofol. TECHNICAL INFORMATION: This 24-hour continuous video EEG was performed using the standard international 10-20 system of lead placement. All data was obtained digitally and available for reformatting and remontaging. Simultaneous electrocardiogram monitoring was performed during the recording. DESCRIPTION OF EEG RECORDING: This report details the EEG from November 22, 2024 at 2:49 PM until November 23, 2024 at 8:49 AM. There were times during the recording in which her posterior dominant rhythm was intermittently suppressed, presumably due to intravenous sedation. Other times though her posterior dominant rhythm was apparent and was usually about 11 Hz. Electrical activity was generally of symmetric amplitude between hemispheres and from anterior to posterior. Slowing during electrographic sleep was observed. There was no epileptiform activity seen throughout the entirety of the recording. No seizures were captured. No pushbutton events. No significant or interpretation limiting artifact was seen. IMPRESSION: Normal-appearing EEG, though sometimes suppressed probably because of pharmacologic sedation. Normal appearing electrical background. No seizures or epileptiform activity seen. None of her seizure events were captured. Normal [facility] Comment on above: Result Comment: Elec tronically Signed By: Ted Petersen DO\.reese\Date and Time Signed: 11/23/24 12:28 EST HEMATOLOGYOrdered By: Chaz Manley on 11-23-2024 Clarity (CSF) Clear (11/23/24 12:10 PM) Normal [facility]eMan[facility] Color (CSF) Colorless (11/23/24 12:10 PM) Normal [facility] RBC Auto (CSF) [#/Vol] 1 cells/mcL High <=0cells/mcL [facility] TNC CSF 0 cells/mcL Normal 0 - 5 cells/mcL [facility] Comment on above: Interpretive Data: T NC: Total Nucleated Cells include WBC's and other cells present, (eg, mesothelial cells and other lining cells) Tube Num CSF 3 1 Invalid Interpretation Code [facility] HemeManSS Clarity (CSF) Clear (11/23/24 12:08 PM) Normal [facility] Color (CSF) Colorless (11/23/24 12:08 PM) Normal [facility] RBC Auto (CSF) [#/Vol] 14 cells/mcL High <=0cells/mc L [facility] TNC CSF 1 cells/mcL Normal 0 - 5 cells/mcL [facility] Comment on above: Interpretive Data: T NC: Total Nucleated Cells include WBC's and other cells present, (eg, mesothelial cells and other lining cells) Tube Num CSF 1 1 Invalid Interpretation Code [facility] HemeManSS HEMATOLOGYOrdered By: Brianna Hernandez on 11-23-2024 Basophils/100 WBC (Bld) 0.2 % Normal 0.0 - 2.0 % Remisol Heme Basophils/Leukocytes Auto (Bld) [Pure # fraction] 0.0 E9/L Normal 0.0 - 0.2 E9/L [facility] Heme Eosinophils (Bld) [#/Vol] 0.1 E9/L Normal 0.0 - 0.5 E9/L [facility] Heme Eosinophils/100 WBC (Bld) 0.6 % Normal 0.0 - 8.0 % [facility] Heme Erythrocyte distribution width (RBC) [Ratio] 19.0 % High 10.9 - 14.2 % [facility] Heme Hematocrit (Bld) [Volume fraction] 24.7 % Low 34.0 - 46.0 % [facility] Heme Hemoglobin (Bld) [Mass/Vol] 8.0 g/dL Low 12.0 - 16.0 gm/dL [facility] Heme Lymphocytes (Bld) [#/Vol] 0.6 E9/L Low 1.0 - 4.0 E9/L [facility] Heme Lymphocytes/100 WBC (Bld) 7.0 % Low 14.0 - 50.0 % [facility] Heme MCH (RBC) [Entitic mass] 28.8 pg Normal 27.0 - 34.0 pg [facility] Heme MCHC (RBC) [Mass/Vol] 32.4 g/dL Normal 31.4 - 36.0 gm/dL [facility] Heme MCV (RBC) [Entitic vol] 88.9 fL Normal 80.0 - 100.0 fL [facility] Heme Monocytes (Bld) [#/Vol] 0.6 E9/L Normal 0.2 - 1.0 E9/L [facility] Heme Monocytes/100 WBC (Bld) 7.5 % Normal 4.0 - 14.0 % [facility] Heme Neutrophils (Bld) [#/Vol] 6.9 E9/L Normal 2.0 - 7.5 E9/L [facility] Heme Neutrophils/100 WBC (Bld) 84.7 % High 36.0 - 75.0 % [facility] Heme Platelet mean volume (Bld) [Entitic vol] 6.6 fL Normal 6.4 - 10.8 fL [facility] Platelets (Bld) [#/Vol] 298.0 E9/L Normal 150.0 - 500.0 E9/L [facility] Heme RBC (Bld) [#/Vol] 2.8 E12/L Low 4.3 - 5.9 E12/L [facility] Heme WBC corrected for nucl RBC Auto (Bld) [#/Vol] 8.1 E9/L Normal 4.0 - 11.0 E9/L [facility] Heme Lab Miscellaneous-LCon 11-23 Lab Miscellaneous See Refr Report Invalid Interpretation Code [facility] Comment on above: Order Comment: Stat Podiatry Assistant to [facility] Performed By: #### 1 [id number] #### [facility] [address] [place] [address] Test Code Sent to [facility] Invalid Interpretation Code [facility] Comment on above: Order Comment: Stat Podiatry Assistant to [facility] Result Comment: test ing sent to [facility] Performed By: #### 1 [id number] #### [facility] [address] [place] [address] Test Code 178851 Invalid Interpretation Code [facility] Comment on above: Order Comment: CSF Performed By: #### 1 [id number] #### [facility] [address] [place] [address] Test Name [employer] Invalid Interpretation Code [facility] Comment on above: Order Comment: Stat Podiatry Assistant to [facility] Performed By: #### 1 [id number] #### [facility] [address] [place] [address] Test Name NMDA Invalid Interpretation Code [facility] Comment on above: Order Comment: CSF Performed By: #### 1 [id number] #### [facility] [address] [place] [address] Meningitis+Encephalitis path ogens DNA and RNA panel - Cerebral spinal fluid by CORONA wiOrdered By: Ted Petersen on 11-23-2024 Meningitis+Encephaliti s pathogens DNA and RNA panel CORONA+non-probe (CSF) Meningitis+Encephalit is pathogens DNA and RNA panel - Cerebral spinal fluid by CORONA wi [facility] No Panel InformationOrdered By: Marleen Muñiz on 11-23-2024 GS No WBC's seen. No organisms seen. [facility] Spinal Fluid Culture No growth at 2 days. [facility] Reference Laboratory Testing Ordered By: Corinna Cruz on 11-23-2024 Lab Miscellaneous See Refr Report Invalid Interpretation Code [facility] SendOutsSS Reference Laboratory Testing Ordered By: Lynn Leon on 03-03-2025 Sodium [Moles/Vol] 304013 mmol/L Invalid Interpretation Code [facility] SendOutsSS Test Code Sent to [facility] Invalid Interpretation Code [facility] SendOutsSS Comment on above: Result Comment: test ing sent to [facility] Test Name NMDA Invalid Interpretation Code [facility] SendOutsSS Test Name Biofire Invalid Interpretation Code [facility] SendOutsSS TSH With T4fr Reflexon 11-23 TSH Qn 2.02 m[IU]/L Normal 0.34-5.60 [facility] Comment on above: Performed By: #### 1 [id number] #### [facility] [address] [place] [address] eGFRon 11-23-2024 eGFR 124 mL/min/1.73 m2 Normal >=59 [facility] Comment on above: Performed By: #### 1 [id number] #### [facility] [address] [place] [address] Ammoniaon 11-22-2024 Ammonia (P) [Moles/Vol] 27 mcmol Normal 11-35 [facility] Comment on above: Performed By: #### 2 [id number] #### [facility] [address] [place] [address] BB Draw & Holdon 11-22-2024 BB D&H Sample drawn for Blood Ba Normal [facility] Comment on above: Performed By: #### 1 [id number] #### [facility] [address] [place] [address] BMPon 11-22-2024 Anion gap [Moles/Vol] 10 mmol/L Normal 6-16 [facility] Comment on above: Performed By: #### 2 [id number] #### [facility] [address] [place] [address] Calcium [Mass/Vol] 7.2 mg/dL Low 8.9-11.1 [facility] Comment on above: Performed By: #### 2 [id number] #### [facility] [address] [place] [address] Chloride [Moles/Vol] 114 mmol/L High 101-111 [facility] Comment on above: Performed By: #### 2 [id number] #### [facility] [address] [place] [address] CO2 [Moles/Vol] 22 mmol/L Normal 21-31 [facility] Comment on above: Performed By: #### 2 [id number] #### [facility] [address] [place] [address] Creatinine [Mass/Vol] 0.6 mg/dL Normal 0.5-1.3 [facility] Comment on above: Performed By: #### 2 [id number] #### [facility] [address] [place] [address] Glucose [Mass/Vol] 76 mg/dL Normal 55-199 [facility] Comment on above: Performed By: #### 2 [id number] #### [facility] [address] [place] [address] Potassium [Moles/Vol] 3.0 mmol/L Low 3.5-5.3 [facility] Comment on above: Performed By: #### 2 [id number] #### [facility] [address] [place] [address] Sodium [Moles/Vol] 143 mmol/L Normal 135-145 [facility] Comment on above: Performed By: #### 2 [id number] #### [facility] [address] [place] [address] Urea nitrogen [Mass/Vol] 10 mg/dL Normal 5-21 [facility] Comment on above: Performed By: #### 2 [id number] #### [facility] [address] [place] [address] Urea nitrogen/Creatinine [Mass ratio] 17 No Units Normal 10-20 [facility] Comment on above: Performed By: #### 2 [id number] #### [facility] [address] [place] [address] Anion gap [Moles/Vol] 12 mmol/L Normal 6-16 [facility] Comment on above: Performed By: #### 2 [id number] #### [facility] [address] [place] [address] Calcium [Mass/Vol] 7.1 mg/dL Low 8.9-11.1 [facility] Comment on above: Performed By: #### 2 [id number] #### [facility] [address] [place] [address] Chloride [Moles/Vol] 110 mmol/L Normal 101-[address] [facility] Comment on above: Performed By: #### 2 [id number] #### [facility] [address] [place] [address] CO2 [Moles/Vol] 23 mmol/L Normal 21-31 [facility] Comment on above: Performed By: #### 2 [id number] #### [facility] [address] [place] [address] Creatinine [Mass/Vol] 0.7 mg/dL Normal 0.5-1.3 [facility] Comment on above: Performed By: #### 2 [id number] #### [facility] [address] [place] [address] Glucose [Mass/Vol] 144 mg/dL Normal 55-199 [facility] Comment on above: Performed By: #### 2 [id number] #### [facility] [address] [place] [address] Potassium [Moles/Vol] 2.9 mmol/L Low 3.5-5.3 [facility] Comment on above: Performed By: #### 2 [id number] #### [facility] [address] [place] [address] Sodium [Moles/Vol] 142 mmol/L Normal 135-145 [facility] Comment on above: Performed By: #### 2 [id number] #### [facility] [address] [place] [address] Urea nitrogen [Mass/Vol] 15 mg/dL Normal 5-21 [facility] Comment on above: Performed By: #### 2 [id number] #### [facility] [address] [place] [address] Urea nitrogen/Creatinine [Mass ratio] 21 No Units High 10-20 [facility] Comment on above: Performed By: #### 2 [id number] #### [facility] [address] [place] [address] BhCG Quanton 11-22-2024 HCG.beta subunit Qn 1 m[IU]/mL Normal 1-3 [facility] Comment on above: Result Comment: 'F N ON < 1 - 3' ' 0.2 - 1 WEEK = 5 TO 50' ' 1 - 2 WEEKS = 50 - 500' ' 2 - 3 WEEKS = 100 - 5000' ' 3 - 4 WEEKS = 500 - 45460' ' 4 - 5 WEEKS = 1000 - 38730' ' 5 - 6 WEEKS = 01527 - 191269' ' 6 - 8 WEEKS = 54244 - 280350' ' 8 - 12 WEEKS = 29414 - 276135' Performed By: #### 2 [id number] #### [facility] [address] [place] [address] Blood Gas Art, with Ryne Davis [place], [place] 11-22-2024 a/A Ratio Art 79.70 % Normal >=0.80 [facility] Comment on above: Performed By: #### 4 [id number] #### [facility] [address] [place] [address] AaDO2 Art 35.0 mmHg High 5.0-15.0 [facility] Comment on above: Performed By: #### 4 [id number] #### [facility] [address] [place] [address] ACT. Rate 24 Invalid Interpretation Code [facility] Comment on above: Performed By: #### 4 [id number] #### [facility] [address] [place] [address] Allens Test Positive Normal [facility] Comment on above: Performed By: #### 4 [id number] #### [facility] [address] [place] [address] Base Excess Arterial 0.2 mmol/L Low >=2.[address] [facility] Comment on above: Performed By: #### 4 [id number] #### [facility] [address] [place] [address] cCa2+ Art 4.38 mg/dL Low 4.40-5.30 [facility] Comment on above: Performed By: #### 4 [id number] #### [facility] [address] [place] [address] cCl- Art 112.0 mmol/L High 101.0-111.0 [facility] Comment on above: Performed By: #### 4 [id number] #### [facility] [address] [place] [address] cGlu Art 75 mg/dL Normal 55-99 [facility] Comment on above: Performed By: #### 4 [id number] #### [facility] [address] [place] [address] cK+ Art 3.0 mmol/L Low 3.5-5.3 [facility] Comment on above: Performed By: #### 4 [id number] #### [facility] [address] [place] [address] cLac Art 3.1 mmol/L High .5-2.2 [facility] Comment on above: Performed By: #### 4 [id number] #### [facility] [address] [place] [address] air intelligence specialist+ Art 146.0 mmol/L High 135.0-145.0 [facility] Comment on above: Performed By: #### 4 [id number] #### [facility] [address] [place] [address] Device Ventilator Normal [facility] Comment on above: Performed By: #### 4 [id number] #### [facility] [address] [place] [address] Drawn by LIVIER Invalid Interpretation Code [facility] Comment on above: Performed By: #### 4 [id number] #### [facility] [address] [place] [address] FCOHb Art 1.1 % Low 1.5-4.9 [facility] Comment on above: Result Comment: Refe rence range Nonsmoker <1.5% Smoker <5.0% Heavy Smoker <9.0% Performed By: #### 4 [id number] #### [facility] [address] [place] [address] FIO2 BG 30.0 Invalid Interpretation Code [facility] Comment on above: Performed By: #### 4 [id number] #### [facility] [address] [place] [address] FMetHb Art 0.2 % Normal 0.0-1.9 [facility] Comment on above: Performed By: #### 4 [id number] #### [facility] [address] [place] [address] FO2Hb Art 98.8 % Normal 92.0-100.0 [facility] Comment on above: Performed By: #### 4 [id number] #### [facility] [address] [place] [address] Hemoglobin (Bld) [Mass/Vol] 9.8 g/dL Low 12.0-16.0 [facility] Comment on above: Performed By: #### 4 [id number] #### [facility] [address] [place] [address] MECH. Rate 20 Invalid Interpretation Code [facility] Comment on above: Performed By: #### 4 [id number] #### [facility] [address] [place] [address] O2 Sat Art >99.2 Normal 95.0-100.0 [facility] Comment on above: Performed By: #### 4 [id number] #### [facility] [address] [place] [address] P CO2 Arterial 33.7 mmHg Low 35.0-45.0 [facility] Comment on above: Performed By: #### 4 [id number] #### [facility] [address] [place] [address] P O2 Arterial 137.0 mmHg Abnormal 80.0-100.0 [facility] Comment on above: Result Comment: Resu lts Called To SHELLI JAIMES BY MARTHA DESIR _ And Read Back For Confirmation On11/22/2024 09:13:20 EST _. Performed By: #### 4 [id number] #### [facility] [address] [place] [address] PEEP 5 Invalid Interpretation Code [facility] Comment on above: Performed By: #### 4 [id number] #### [facility] [address] [place] [address] pH Arterial 7.457 High 7.350-7.450 [facility] Comment on above: Performed By: #### 4 [id number] #### [facility] [address] [place] [address] Sample Site R Radial Normal [facility] Comment on above: Performed By: #### 4 [id number] #### [facility] [address] [place] [address] Sample Type Arterial Draw Normal [facility] Comment on above: Performed By: #### 4 [id number] #### [facility] [address] [place] [address] SET Vt 300 Invalid Interpretation Code [facility] Comment on above: Performed By: #### 4 [id number] #### [facility] [address] [place] [address] Vent Mode AC/VC Invalid Interpretation Code [facility] Comment on above: Performed By: #### 4 [id number] #### [facility] [address] [place] [address] Allens Test Not Applicable Normal [facility] Comment on above: Performed By: #### 4 [id number] #### [facility] [address] [place] [address] Drawn by lamine jacques Invalid Interpretation Code [facility] Comment on above: Performed By: #### 4 [id number] #### [facility] [address] [place] [address] FIO2 BG 50 Invalid Interpretation Code [facility] Comment on above: Performed By: #### 4 [id number] #### [facility] [address] [place] [address] pH Arterial 7.226 Abnormal 7.350-7.450 [facility] Comment on above: Result Comment: Resu lts Called To DR. Graham By Lamine Jacques11/22/2024 06:24:57 EST And Read Back For Confirmation On _. Performed By: #### 4 [id number] #### [facility] [address] [place] [address] Sample Site R Radial Normal [facility] Comment on above: Performed By: #### 4 [id number] #### [facility] [address] [place] [address] Sample Type Arterial Draw Normal [facility] Comment on above: Performed By: #### 4 [id number] #### [facility] [address] [place] [address] Allens Test Not Applicable Normal [facility] Comment on above: Performed By: #### 4 [id number] #### [facility] [address] [place] [address] Base Excess Arterial -10.3 mmol/L Low >=2.8 [facility] Comment on above: Performed By: #### 4 [id number] #### [facility] [address] [place] [address] cCa2+ Art 4.37 mg/dL Low 4.40-5.30 [facility] Comment on above: Performed By: #### 4 [id number] #### [facility] [address] [place] [address] cCl- Art 114.0 mmol/L High 101.0-111.0 [facility] Comment on above: Performed By: #### 4 [id number] #### [facility] [address] [place] [address] cGlu Art 181 mg/dL High 55-99 [facility] Comment on above: Performed By: #### 4 [id number] #### [facility] [address] [place] [address] cK+ Art 2.5 mmol/L Abnormal 3.5-5.3 [facility] Comment on above: Result Comment: Resu lts Called To Dr. Georgia Graham By Lamine Veliz RCP_ And Read Back For Confirmation On 04:03:10 EST. Performed By: #### 4 [id number] #### [facility] [address] [place] [address] cLac Art 9.6 mmol/L Abnormal .5-2.2 [facility] Comment on above: Result Comment: Resu lts Called To Dr. Georgia Graham By Lamine COLINP_ And Read Back For Confirmation On 04:03:10 EST. Performed By: #### 4 [id number] #### [facility] [address] [place] [id number] air intelligence specialist+ Art 149.0 mmol/L High 135.0-145.0 [facility] Comment on above: Performed By: #### 4 [id number] #### [facility] [address] [place] [address] Device Ventilator Normal [facility] Comment on above: Performed By: #### 4 [id number] #### [facility] [address] [place] [address] Drawn by Lamine Jacques Invalid Interpretation Code [facility] Comment on above: Performed By: #### 4 [id number] #### [facility] [address] [place] [address] FCOHb Art 0.9 % Low 1.5-4.9 [facility] Comment on above: Result Comment: Refe rence range Nonsmoker <1.5% Smoker <5.0% Heavy Smoker <9.0% Performed By: #### 4 [id number] #### [facility] [address] [place] [address] FIO2 BG 50 Invalid Interpretation Code [facility] Comment on above: Performed By: #### 4 [id number] #### [facility] [address] [place] [address] FMetHb Art 1.0 % Normal 0.0-1.9 [facility] Comment on above: Performed By: #### 4 [id number] #### [facility] [address] [place] [address] FO2Hb Art 98.8 % Normal 92.0-100.0 [facility] Comment on above: Performed By: #### 4 [id number] #### [facility] [address] [place] [address] MECH. Rate 12 Invalid Interpretation Code [facility] Comment on above: Performed By: #### 4 [id number] #### [facility] [address] [place] [address] Oxygen saturation in Blood 99.2 % Normal 95.0-100.0 [facility] Comment on above: Performed By: #### 4 [id number] #### [facility] [address] [place] [address] P CO2 Arterial 40.0 mmHg Normal 35.0-45.0 [facility] Comment on above: Performed By: #### 4 [id number] #### [facility] [address] [place] [address] P O2 Arterial 233.0 mmHg Abnormal 80.0-100.0 [facility] Comment on above: Result Comment: Resu lts Called To Dr. Georgia Graham By Lamine Veliz [facility]_ And Read Back For Confirmation On 04:03:10 EST. Performed By: #### 4 [id number] #### [facility] [address] [place] [address] PEEP 5 Invalid Interpretation Code [facility] Comment on above: Performed By: #### 4 [id number] #### [facility] [address] [place] [id number] pH Arterial 7.226 Abnormal 7.350-7.450 [facility] Comment on above: Result Comment: Resu lts Called To Dr. Georgia Graham By Lamine Veliz RCP_ And Read Back For Confirmation On 04:03:10 EST. Performed By: #### 4 [id number] #### [facility] [address] [place] [address] Sample Site R Radial Normal [facility] Comment on above: Performed By: #### 4 [id number] #### [facility] [address] [place] [address] Sample Type Arterial Draw Normal [facility] Comment on above: Performed By: #### 4 [id number] #### [facility] [address] [place] [address] SET Vt 300 Invalid Interpretation Code [facility] Comment on above: Performed By: #### 4 [id number] #### [facility] [address] [place] [address] Vent Mode AC Invalid Interpretation Code [facility] Comment on above: Performed By: #### 4 [id number] #### [facility] [address] [place] [id number] CBC w/ Auto Diffon 5 Band form neutrophils/100 WBC (Bld) 2.0 % Normal 0.0-6.0 [facility] Comment on above: Performed By: #### 2 [id number] #### [facility] [address] [place] [address] Basophils (Bld) [#/Vol] 0.0 E9/L Normal 0.0-0.2 [facility] Comment on above: Performed By: #### 2 [id number] #### [facility] [address] [place] [address] Eosinophils (Bld) [#/Vol] 0.0 E9/L Normal 0.0-0.5 [facility] Comment on above: Performed By: #### 2 [id number] #### [facility] [address] [place] [address] Eosinophils/100 WBC (Bld) 0.0 % Normal 0.0-8.0 [facility] Comment on above: Performed By: #### 2 [id number] #### [facility] [address] [place] [address] Erythrocyte distribution width (RBC) [Ratio] 18.4 % High 10.9-14.2 [facility] Comment on above: Performed By: #### 2 [id number] #### [facility] [address] [place] [address] Hematocrit (Bld) [Volume fraction] 25.4 % Low 34.0-46.0 [facility] Comment on above: Performed By: #### 2 [id number] #### [facility] [address] [place] [address] Hemoglobin (Bld) [Mass/Vol] 8.9 g/dL Low 12.0-16.0 [facility] Comment on above: Result Comment: Hemo globin confirmed by redraw. Performed By: #### 2 [id number] #### [facility] [address] [place] [address] Lymphocytes (Bld) [#/Vol] 1.5 E9/L Normal 1.0-4.0 [facility] Comment on above: Performed By: #### 2 [id number] #### [facility] [address] [place] [address] Lymphocytes/100 WBC (Bld) 12.0 % Low 14.0-50.0 [facility] Comment on above: Performed By: #### 2 [id number] #### [facility] [address] [place] [address] MCH (RBC) [Entitic mass] 30.5 pg Normal 27.0-34.0 [facility] Comment on above: Performed By: #### 2 188554 #### [facility] [address] [place] [address] MCHC (RBC) [Mass/Vol] 35.2 g/dL Normal 31.4-36.0 [facility] Comment on above: Performed By: #### 2 [id number] #### [facility] [address] [place] [address] MCV (RBC) [Entitic vol] 86.6 fL Normal 80.0-100.0 [facility] Comment on above: Performed By: #### 2 [id number] #### [facility] [address] [place] [address] Monocytes (Bld) [#/Vol] 0.9 E9/L Normal 0.2-1.0 [facility] Comment on above: Performed By: #### 2 [id number] #### [facility] [address] [place] [address] Neutrophils (Bld) [#/Vol] 10.4 E9/L Invalid Interpretation Code [facility] Comment on above: Performed By: #### 2 [id number] #### [facility] [address] [place] [address] Platelet 421.0 E9/L Normal 150.0-500.0 [facility] Comment on above: Performed By: #### 2 [id number] #### [facility] [address] [place] [address] Platelet mean volume (Bld) [Entitic vol] 6.4 fL Normal 6.4-10.8 [facility] Comment on above: Performed By: #### 2 [id number] #### [facility] [address] [place] [address] Polychromasia LM Ql (Bld) PRESENT Invalid Interpretation Code [facility] Comment on above: Performed By: #### 2 [id number] #### [facility] [address] [place] [address] RBC (Bld) [#/Vol] 2.9 E12/L Low 4.3-5.9 [facility] Comment on above: Performed By: #### 2 [id number] #### [facility] [address] [place] [address] RBC size Nom (Bld) SEE MORPHOLOGY Invalid Interpretation Code [facility] Comment on above: Performed By: #### 2 [id number] #### [facility] [address] [place] [address] Segmented neutrophils/100 WBC (Bld) 79.0 % High 36.0-75.0 [facility] Comment on above: Performed By: #### 2 713178 #### [facility] [address] [place] [address] WBC corrected for nucl RBC Auto (Bld) [#/Vol] 12.8 E9/L High 4.0-11.0 [facility] Comment on above: Performed By: #### 2 [id number] #### [facility] [address] [place] [address] Band form neutrophils/100 WBC (Bld) 13.0 % High 0.0-6.0 [facility] Comment on above: Performed By: #### 2 [id number] #### [facility] [address] [place] [address] Basophils (Bld) [#/Vol] 0.0 E9/L Normal 0.0-0.2 [facility] Comment on above: Performed By: #### 2 [id number] #### [facility] [address] [place] [address] Eosinophils (Bld) [#/Vol] 0.0 E9/L Normal 0.0-0.5 [facility] Comment on above: Performed By: #### 2 507859 #### [facility] [address] [place] [address] Eosinophils/100 WBC (Bld) 0.0 % Normal 0.0-8.0 [facility] Comment on above: Performed By: #### 2 [id number] #### [facility] [address] [place] [address] Erythrocyte distribution width (RBC) [Ratio] 19.4 % High 10.9-14.2 [facility] Comment on above: Performed By: #### 2 [id number] #### [facility] [address] [place] [address] Hematocrit (Bld) [Volume fraction] 41.0 % Normal 34.0-46.0 [facility] Comment on above: Performed By: #### 2 [id number] #### [facility] [address] [place] [address] Hemoglobin (Bld) [Mass/Vol] 12.7 g/dL Normal 12.0-16.0 [facility] Comment on above: Performed By: #### 2 [id number] #### [facility] [address] [place] [address] Lymphocytes (Bld) [#/Vol] 3.9 E9/L Normal 1.0-4.0 [facility] Comment on above: Performed By: #### 2 195906 #### [facility] [address] [place] [address] Lymphocytes/100 WBC (Bld) 15.0 % Normal 14.0-50.0 [facility] Comment on above: Performed By: #### 2 [id number] #### [facility] [address] [place] [address] MCH (RBC) [Entitic mass] 28.4 pg Normal 27.0-34.0 [facility] Comment on above: Performed By: #### 2 326192 #### [facility] [address] [place] [address] MCHC (RBC) [Mass/Vol] 30.9 g/dL Low 31.4-36.0 [facility] Comment on above: Performed By: #### 2 [id number] #### [facility] [address] [place] [address] MCV (RBC) [Entitic vol] 92.2 fL Normal 80.0-100.0 [facility] Comment on above: Performed By: #### 2 [id number] #### [facility] [address] [place] [address] Metamyelocytes/Leukocy terry Manual cnt (Bld) [Pure # fraction] 3.0 % High 0.0-0.0 [facility] Comment on above: Performed By: #### 2 [id number] #### [facility] [address] [place] [address] Monocytes (Bld) [#/Vol] 2.1 E9/L High 0.2-1.0 [facility] Comment on above: Performed By: #### 2 [id number] #### [facility] [address] [place] [address] Myelocytes/100 WBC (Bld) 4.0 % High 0.0-0.0 [facility] Comment on above: Performed By: #### 2 [id number] #### [facility] [address] [place] [address] Neutrophils (Bld) [#/Vol] 18.2 E9/L Invalid Interpretation Code [facility] Comment on above: Performed By: #### 2 [id number] #### [facility] [address] [place] [address] Platelet 799.0 E9/L High 150.0-500.0 [facility] Comment on above: Performed By: #### 2 [id number] #### [facility] [address] [place] [address] Platelet mean volume (Bld) [Entitic vol] 6.7 fL Normal 6.4-10.8 [facility] Comment on above: Performed By: #### 2 [id number] #### [facility] [address] [place] [address] RBC (Bld) [#/Vol] 4.5 E12/L Normal 4.3-5.9 [facility] Comment on above: Performed By: #### 2 [id number] #### [facility] [address] [place] [address] RBC size Nom (Bld) NORMAL Invalid Interpretation Code [facility] Comment on above: Performed By: #### 2 [id number] #### [facility] [address] [place] [address] Segmented neutrophils/100 WBC (Bld) 57.0 % Normal 36.0-75.0 [facility] Comment on above: Performed By: #### [id number] #### [facility] [address] [place] [address] WBC corrected for nucl RBC Auto (Bld) [#/Vol] 26.0 E9/L High 4.0-11.0 [facility] Comment on above: Performed By: #### [id number] #### [facility] [address] [place] [address] CHEMISTRYOrdered By: SYSTEM SYSTEM on 11-22-2024 Lactic Acid Lvl 2.6 mmol/L High 0.5 - 2.2 mmol/L Remisol Chem Magnesium [Mass/Vol] 1.9 mg/dL Normal 1.3 - 2 .4 mg/dL Remisol Chem Phosphate [Mass/Vol] 1.3 mg/dL Low 1.9 - 4 .6 mg/dL Remisol Chem Lactic Acid Lvl 2.4 mmol/L High 0.5 - 2.2 mmol/L Remisol Chem Troponin HS 469.60 pg/mL Invalid Interpretation Code 10.10 - 27.10 pg/mL Remisol Chem Comment on above: Result Comment: Crit ical Result I_TnIHS:469.6 Called to and read back by: KAMRAN ARCE at: 11/22/2024 13:16:54 by:PEEWEE Critical Result Verified by Previous Result Interpretive Data: T he 95% CI (Confidence Interval) PPV (Positive Predictive Value) for myocardial infarction in females is 38 pg/mL, in males 51 pg/mL. The results should be used in conjunction with clinical conditions of myocardial infarction. (Access High Sensitivity Troponin I Instructions For Use, Jannette Savannah, April 2018) Lactic Acid Lvl 4.4 mmol/L High 0.5 - 2.2 mmol/L Remisol Chem Troponin HS 499.80 pg/mL Invalid Interpretation Code 10.10 - 27.10 pg/mL Remisol Chem Comment on above: Result Comment: Crit ical Result Verified by Previous Result Attempted to call at [id number] Critical Result I_TnIHS:499.8 Called to and read back by: KAMRAN ADHIKARI at: 11/22/2024 10:07:37 by:AG Interpretive Data: T he 95% CI (Confidence Interval) PPV (Positive Predictive Value) for myocardial infarction in females is 38 pg/mL, in males 51 pg/mL. The results should be used in conjunction with clinical conditions of myocardial infarction. (Access High Sensitivity Troponin I Instructions For Use, Jannette Savannah, April 2018) Albumin [Mass/Vol] 2.5 g/dL Low 3.3 - 5.0 gm/dL Remisol Chem Albumin/Globulin [Mass ratio] 0.8 {ratio} Low 1.1 - 2.2 Remisol Chem ALP [Catalytic activity/Vol] 109 [iU]/d High 21 - 98 Int._Unit/L Remisol Chem ALT No additional P-5'-P [Catalytic activity/Vol] 20 [iU]/d Normal 6 - 46 Int._Unit/L Remisol Chem Ammonia (P) [Moles/Vol] 27 umol Normal 11 - 35 mcmol Remisol Chem Amphetamines Screen method >1000 ng/mL Ql (U) NEGATIVE 10 (11/22/24 5:01 AM) Normal NEGATIVE Remisol Chem Comment on above: Interpretive Data: N egative Cutoff: <1000 ng/mL AST [Catalytic activity/Vol] 40 [iU]/d Normal 5 - 43 Int._Unit/L Remisol Chem Barbiturates Screen Ql (U) NEGATIVE 11 (11/22/24 5:01 AM) Normal NEGATIVE Remisol Chem Comment on above: Interpretive Data: N egative Cutoff: <200 ng/mL Benzodiazepines Ql (U) POSITIVE 1, 2 *ABN* (11/22/24 5:01 AM) Invalid Interpretation Code NEGATIVE Remisol Chem Comment on above: Result Comment: Crit ical Result Verified by Repeat Analysis No Confirmation Requested by Physician Unconfirmed by an Alternate Method Interpretive Data: N egative Cutoff: <200 ng/mL Bilirubin [Mass/Vol] 0.3 mg/dL Normal 0.0 - 1 .1 mg/dL Remisol Chem Bilirubin.direct [Mass/Vol] 0.1 mg/dL Normal 0.0 - 0.4 mg/dL Remisol Chem Bilirubin.indirect [Mass or moles/Vol] 0.2 mg/dL Normal 0.1 - 0.9 mg/dL Remisol Chem Cannabinoids Screen Ql (U) POSITIVE 8, 9 *ABN* (11/22/24 5:01 AM) Invalid Interpretation Code NEGATIVE Remisol Chem Comment on above: Result Comment: Crit ical Result Verified by Repeat Analysis No Confirmation Requested by Physician Unconfirmed by an Alternate Method Interpretive Data: N egative Cutoff: <50 ng/mL Cocaine Ql (U) NEGATIVE 3 (11/22/24 5:01 AM) Normal NEGATIVE Remisol Chem Comment on above: Interpretive Data: N egative Cutoff: <300 ng/mL Globulin (S) [Mass/Vol] 3.2 g/dL Normal 1.4 - 4.0 gm/dL Remisol Chem Magnesium [Mass/Vol] 1.2 mg/dL Low 1.3 - 2 .4 mg/dL Remisol Chem Opiates Screen Ql (U) NEGATIVE 5 (11/22/24 5:01 AM) Normal NEGATIVE Remisol Chem Comment on above: Interpretive Data: N egative Cutoff: <300 ng/mL Phencyclidine Screen method >25 ng/mL Ql (U) NEGATIVE 6 (11/22/24 5:01 AM) Normal NEGATIVE Remisol Chem Comment on above: Interpretive Data: N egative Cutoff: <25 ng/mL These drug screen results are to be used for medical (i.e., treatment) purposes only. Unconfirmed drug screening results must not be used for non-medical purposes (e.g., employment testing, legal testing). Procalcitonin 0.60 ng/mL High 0.00 - 0.50 ng/mL Remisol Chem Comment on above: Interpretive Data: < 0.5 ng/mL Low risk of severe sepsis and/or shock >2.0 ng/mL High risk of severe sepsis and/or shock Concentrations under 0.5 ng/mL do not exclude local infections or systemic infections in their initial stages (e.g.. under six hours from onset of illness). PCT concentrations between 0.5 and 2.0 ng/mL should be interpreted with consideration of the patient's history. In this range, it is recommended to retest PCT within 6 to 24 hours. Protein [Mass/Vol] 5.7 g/dL Low 6.0 - 7.8 gm/dL Remisol Chem Troponin HS 94.30 pg/mL Invalid Interpretation Code 10.10 - 27.10 pg/mL Remisol Chem Comment on above: Result Comment: Crit ical Result Verified by Repeat Analysis Critical Result I_TnIHS:94.3 Called to and read back by: HERBERT WADE/ER at: 11/22/2024 05:24:16 by:KARENA GARDINER Interpretive Data: T he 95% CI (Confidence Interval) PPV (Positive Predictive Value) for myocardial infarction in females is 38 pg/mL, in males 51 pg/mL. The results should be used in conjunction with clinical conditions of myocardial infarction. (Access High Sensitivity Troponin I Instructions For Use, Jannette Savannah, April 2018) U Fentanyl NEGATIVE 40 (11/22/24 5:01 AM) Normal NEGATIVE Remisol Chem Comment on above: Interpretive Data: N egative Cutoff: <5 ng/mL These drug screen results are to be used for medical (i.e., treatment) purposes only. Unconfirmed drug screening results must not be used for non-medical purposes (e.g., employment testing, legal testing). Ethanol Lvl mg/dL Normal <=11mg/dL Remisol Chem HCG.beta subunit Qn 1 m[IU]/mL Normal 1 - 3 mIU/mL Rem isol Chem Comment on above: Result Comment: 'F N ON < 1 - 3' ' 0.2 - 1 WEEK = 5 TO 50' ' 1 - 2 WEEKS = 50 - 500' ' 2 - 3 WEEKS = 100 - 5000' ' 3 - 4 WEEKS = 500 - 48963' ' 4 - 5 WEEKS = 1000 - 85584' ' 5 - 6 WEEKS = 45181 - 368774' ' 6 - 8 WEEKS = 62532 - 703042' ' 8 - 12 WEEKS = 53744 - 013704' COAGULATIONOrdered By: Reyna Gardiner on 11-22-2024 aPTT Coag (PPP) [Time] 27.3 s Normal 25.1 - 36.5 second(s) [facility] Auto Coag Comment on above: Interpretive Data: P arameter 15 days - 4 weeks 1 - [...] the same coagulation reagent and instrumentation as [facility]. Currently there are no coagulation studies available worldwide for children to 14 days, and no normal ranges. Heparin therapeutic range (represented by Anti-Factor Xa activity of 0.2 - 0.4 U/mL) corresponds to PTT of 56.6 - 109.0 sec. INR Coag (PPP) [Relative time] 0.94 {INR} Invalid Interpretation Code [facility] Auto Coag Comment on above: Interpretive Data: I NR results are specifically intended to assess patients stabilized on long-term Anticoagulation therapy suggested INR s Less Intensive Anticoagulation 2.0 3.0 Conventional Range 3.0 4.5 PT Coag (PPP) [Time] 10.5 s Normal 9.4 - 1 2.5 second(s) [facility] Auto Coag Comment on above: Interpretive Data: 1 5 days - 4 weeks 1 - 5 months 6 -11 months 1 5 years 6 10 years 11 -17 years Mean: 11.2 (9.5 12.6) Mean: 11.0 (9.7 12.8) Mean: 11.0 (9.8 13.0) Mean: 11.3 (9.9 13.4) Mean: 11.7 (10.0 14.6) Mean: 11.8 (10.0 - 14.1) Pediatric Reference ranges were obtained from a study by katie Vinson al. prepared from 1437 samples obtained at 7 different centers using the same coagulation reagent and instrumentation as [facility]. Currently there are no coagulation studies available worldwide for children to 14 days, and no normal ranges. CT Abdomen/Pelvis w/ Contras ton 11-22-2024 CT Abdomen/Pelvis w/ Contrast Exam Date/Time: 11/22/2024 04:31 EST Reason for Exam: Trauma Report IMPRESSION: Diffuse colitis, similar to prior. Terminal ileitis, possibly improved from prior. Perirectal fistula, grossly unchanged. Hepatomegaly and hepatic steatosis, unchanged. HISTORY: Altered mental status. Intubated. History of Crohn's disease. TECHNIQUE: CT of the abdomen and pelvis was performed using standard technique with intravenous contrast, scanning from just above the dome of the diaphragm to the symphysis pubis. Including delayed images through the kidneys. Including sagittal and coronal reconstructions on both phases. Given 100 mL of intravenous Isovue-300. Unless otherwise stated, incidental findings identified in this report do not require routine follow-up imaging. All CT scans at this facility use dose modulation, iterative reconstruction, and/or weight based dosing when appropriate to reduce radiation dose to as low as reasonably achievable. COMPARISON: 11/14/2024. RESULT: Liver: Hepatomegaly with hepatic steatosis. No suspicious liver lesions. Biliary: Gallbladder unremarkable. No biliary ductal dilation. Pancreas: No mass or duct dilation. Spleen: No mass or splenomegaly. Adrenals: No mass. Kidneys: No calculus or hydronephrosis. No suspicious renal lesions. Delayed phase images unremarkable. GI tract: Enteric tube coursing into the stomach. No bowel dilation. Right lower quadrant ileostomy. Fairly diffuse wall thickening involving the colon, unchanged. Areas of wall thickening involving the terminal ileum, similar to improved from prior. Right-sided perirectal fistula, grossly unchanged. Lymph nodes: No abdominal or pelvic lymphadenopathy. Mesentery/Peritoneum/ Retroperitoneum: No ascites or mass. Vasculature: The celiac axis and SMA are patent. The portal vein and branches, splenic vein, SMV, and hepatic veins are patent. No abdominal aortic or iliac artery aneurysm. Report Pelvis: No significant free fluid. Perirectal fistula, unchanged. Uterus unremarkable. Bones: No acute osseous findings. Soft tissues: Unremarkable. Lower thorax: A chest CT performed will be reported separately. Tech Comments: GFR (mL/min/1/73m2) age Contrast: Isovue 370 Contrast amount in ml's: 100.00 Ordering Provider: Alfred Graham FINAL REPORT Dictated: 11/22/2024 9:25 am Robert Bunn MD Signed (Electronic Signature): 11/22/2024 9:25 am Signed by: Robert Bunn MD Transcribed by: CLARICE Technologist: JEROD Llanes [facility] CT Head or Brain w/o Contras ton 11-22-2024 CT Head or Brain w/o Contrast Exam Date/Time: 11/22/2024 04:39 EST Reason for Exam: Mental status change, unknown cause;Altered mental status Report IMPRESSION: No acute intracranial process. HISTORY: Headache. Seizures. Altered mental status. TECHNIQUE: Serial axial images without IV contrast were obtained from the vertex to the foramen magnum, with sagittal and coronal reconstructions. All CT scans at this facility use dose modulation, iterative reconstruction, and/or weight based dosing when appropriate to reduce radiation dose to as low as reasonably achievable. COMPARISON: None. RESULT: Some limitations from artifact. Acute change: No evidence of an acute infarct or other acute parenchymal process. Hemorrhage: No evidence of acute intracranial hemorrhage. Mass Lesion / Mass Effect: There is no evidence of an intracranial mass or extraaxial fluid collection. No significant mass effect. Chronic change: None significant via CT. Parenchyma: There is no significant volume loss. Ventricles: The ventricles are within normal limits of size and configuration for age. Paranasal sinuses and skull base: The visualized paranasal sinuses are grossly clear. Mastoid air cells clear. The skull base is unremarkable. Soft tissues unremarkable. Tech Comments: Ordering Provider: Alfred Graham FINAL REPORT Dictated: 11/22/2024 9:12 am Robert Bunn MD Signed (Electronic Signature): 11/22/2024 9:12 am Signed by: Robert Bunn MD Transcribed by: CLARICE Technologist: JEROD Llanes [facility] CT Spine Cervical w/o Garima carolina 11-22-2024 CT Spine Cervical w/o Contrast Exam Date/Time: 11/22/2024 04:39 EST Reason for Exam: Trauma Report IMPRESSION: No acute fracture or traumatic malalignment in the cervical spine. HISTORY: Neck pain. TECHNIQUE: CT of the cervical spine without IV contrast. Spiral, high resolution axial images were obtained from the skull base to the cervicothoracic junction with sagittal and coronal planar reconstructions. All CT scans at this facility use dose modulation, iterative reconstruction, and/or weight based dosing when appropriate to reduce radiation dose to as low as reasonably achievable. COMPARISON: None. RESULT: Counting reference: Craniocervical junction. Alignment: No traumatic malalignment. Straightening of the cervical lordosis, likely positional or related to muscle spasm. Craniocervical junction: Craniocervical junction is unremarkable. Osseous structures/fracture: No evidence for acute fracture. No destructive osseous lesions. Cervical soft tissues: The paraspinal soft tissues planes are maintained. Partially imaged endotracheal and enteric tubes. Canal and foramina, degenerative changes: No high-grade bony canal or foraminal narrowing. Tech Comments: Ordering Provider: Alfred Graham FINAL REPORT Dictated: 11/22/2024 9:18 am Robert Bunn MD Signed (Electronic Signature): 11/22/2024 9:18 am Signed by: Robert Bunn MD Transcribed by: CLARICE Technologist: JEROD Llanes [facility] CTA [place] 11-22-2024 CTA Chest Exam Date/Time: 11/22/2024 04:30 EST Reason for Exam: Pulmonary Emboli (PE) Report IMPRESSION: No CT evidence of acute pulmonary embolism. No acute process in the thorax. CLINICAL HISTORY: Altered mental status. Chest pain. Technique: Spiral CTA acquisition of the chest from the thoracic inlet to the upper abdomen following IV contrast. Including 3D MIPS reconstructions in coronal plane. Other 3D sagittal and coronal reconstructions. Unless otherwise stated, incidental findings identified in this report do not require routine follow-up imaging. All CT scans at this facility use dose modulation, iterative reconstruction, and/or weight based dosing when appropriate to reduce radiation dose to as low as reasonably achievable. Comparison: None. RESULT: Evaluation for thromboembolic disease: No evidence for thromboembolic disease in the main, lobar, segmental, and visualized subsegmental pulmonary arteries. No evidence for right heart strain. Lung parenchyma and pleura: Endotracheal tube above the ivan. Some retained secretions within the trachea and central airways. No consolidation, pleural effusion, or pneumothorax. Areas of probable atelectasis. Thoracic inlet, heart, and mediastinum: Visualized thyroid unremarkable. No axillary, mediastinal, or hilar lymphadenopathy. Normal thoracic aorta. Normal pulmonary artery size. Normal heart size. No coronary artery calcifications. No pericardial effusion or thickening. Enteric tube within the esophagus coursing into the stomach. Bones: No acute osseous findings. No destructive osseous lesions. Soft tissues: Unremarkable. Upper abdomen: See concurrently performed and separately dictated CT. Tech Comments: GFR (mL/min/1/73m2) age Contrast: Isovue 370 Contrast amount in ml's: 100.00 Report Ordering Provider: Alfred Graham FINAL REPORT Dictated: 11/22/2024 9:22 am Robert Bunn MD Signed (Electronic Signature): 11/22/2024 9:22 am Signed by: Robert Bunn MD Transcribed by: CLARICE Technologist: JEROD Pemberton [facility] CTA [place] 11-22-2024 CTA Head Exam Date/Time: 11/22/2024 05:40 EST Reason for Exam: Headache Report IMPRESSION: Patent intracranial circulation without evidence for occlusion, significant stenosis, or aneurysm. HISTORY: Headache. Seizures. TECHNIQUE: Spiral high resolution axial images were obtained through the head following bolus administration of intravenous contrast for CT angiography. The data was subsequently post-processed utilizing 3D multi-planar reconstructions, 3D maximum intensity projections. COMPARISON: Recent CT of the head. All CT scans at this facility use dose modulation, iterative reconstruction, and/or weight based dosing when appropriate to reduce radiation dose to as low as reasonably achievable. RESULT: BRAIN: No significant change from the recent CT brain dictation. CT ARTERIOGRAM: Intracranial Circulation: Anterior Circulation: Distal ICAs, proximal ACAs, and proximal MCAs appear patent. No evidence for significant stenosis or aneurysm. Vertebrobasilar Circulation: Distal vertebral arteries, basilar artery, proximal director of instructional technology, and visualized cerebellar vessels appear patent. No evidence for significant stenosis or aneurysm. Dural venous sinuses: Visualized dural venous sinuses are patent. Tech Comments: GFR (mL/min/1/73m2) age Contrast: Isovue 370 Contrast amount in ml's: 100.00 Report Ordering Provider: Alfred Graham FINAL REPORT Dictated: 11/22/2024 9:30 am Robert Bunn MD Signed (Electronic Signature): 11/22/2024 9:30 am Signed by: Robert Bunn MD Transcribed by: CLARICE Technologist: JEROD Pemberton [facility] Capillary Glucose POCon Glucose [Mass/Vol] 188 mg/dL High 55-99 [facility] Comment on above: Result Comment: Tanya landaverde RN/ Performed By: #### [id number] #### [facility] [address] [place] [address] ED Clinical Summaryon 2024 ED Clinical Summary ED Clinical Summary [address] [address] ED Clinical Summary Person Information Name: ROLA AGUILAR Elena/[facility] Age: 29 Years : 1995 Sex: Female Language: Honduran PCP: NONE, XXXX Marital Status: Single Visit Id: Visit Reason: Tachycardia; Altered mental status; AMS Speciality: Acuity: 1 Enc Type: Inpatient Med Service: Medical Arrival: 11/22/2024 03:17:21 Discharge: LOS: 000 04:33 Checkin: 11/22/2024 03:17:21 Checkout: 11/22/2024 07:50:52 Dispo Type: Admit to ICCU EVENTS: Event Name Event Status Request Date/Time Start Date/Time Complete Date/Time Arrive Complete 11/22/2024 03:17:21 11/22/2024 03:17:21 11/22/2024 03:17:21 Document Home Meds Request 11/22/2024 03:17:21 Triage Complete 11/22/2024 03:17:21 11/22/2024 03:24:42 11/22/2024 03:24:42 Bed Assign Complete 11/22/2024 03:20:03 11/22/2024 03:20:03 11/22/2024 03:20:03 Dr Exam Complete 11/22/2024 03:20:03 11/22/2024 03:40:01 11/22/2024 03:40:01 RN Exam Complete 11/22/2024 03:20:03 11/22/2024 04:11:21 11/22/2024 04:11:21 EKG Complete 11/22/2024 03:22:59 11/22/2024 04:33:30 Pending Labs Complete 11/22/2024 03:25:05 11/22/2024 03:25:05 11/22/2024 03:25:06 Registration Complete 11/22/2024 03:40:01 11/22/2024 05:27:58 11/22/2024 05:27:58 Patient Care Request 11/22/2024 03:43:47 CT Complete 11/22/2024 03:43:58 11/22/2024 04:25:04 11/22/2024 04:39:36 X-Ray Cancel 11/22/2024 03:43:58 11/22/2024 04:33:16 Pending Labs Inlab 11/22/2024 03:43:58 Lab Inlab 11/22/2024 03:43:58 RT Tx/ABG Request 11/22/2024 03:43:58 Urine Collect Complete 11/22/2024 03:43:58 11/22/2024 05:54:59 RT Complete 11/22/2024 03:43:58 11/22/2024 07:27:16 Meds Admin Request 11/22/2024 03:43:58 Patient Care Request 11/22/2024 03:43:58 Pending Labs Cancel 11/22/2024 03:44:00 11/22/2024 05:03:45 Pending Labs Complete 11/22/2024 03:44:06 11/22/2024 05:10:55 Lab Complete 11/22/2024 03:44:06 11/22/2024 05:10:55 RT Tx/ABG Request 11/22/2024 03:45:20 Pending Labs Cancel 11/22/2024 03:47:07 11/22/2024 04:52:53 Lab Cancel 11/22/2024 03:47:07 11/22/2024 04:52:53 Pending Labs Complete 11/22/2024 03:51:39 11/22/2024 04:03:25 RT Tx/ABG Request 11/22/2024 03:51:39 Possible Sepsis Request 11/22/2024 04:05:28 Meds Admin Complete 11/22/2024 04:07:28 11/22/2024 06:10:22 NPO Request 11/22/2024 04:11:21 CT Complete 11/22/2024 04:39:36 11/22/2024 05:39:33 11/22/2024 05:40:11 Pending Labs Complete 11/22/2024 04:48:37 11/22/2024 04:48:37 11/22/2024 05:13:00 Lab Complete 11/22/2024 04:48:37 11/22/2024 04:48:37 11/22/2024 05:13:00 Pending Labs Complete 11/22/2024 04:53:21 11/22/2024 04:53:21 11/22/2024 05:13:00 Lab Complete 11/22/2024 04:53:21 11/22/2024 04:53:21 11/22/2024 05:13:00 Pending Labs Complete 11/22/2024 05:07:43 11/22/2024 05:07:43 11/22/2024 05:20:02 Lab Complete 11/22/2024 05:07:43 11/22/2024 05:07:43 11/22/2024 05:20:02 Meds Admin Complete 11/22/2024 05:09:28 11/22/2024 06:07:55 Pending Labs Request 11/22/2024 05:10:55 Lab Request 11/22/2024 05:10:55 Meds Admin Request 11/22/2024 05:17:04 Reg Complete Request 11/22/2024 05:27:58 Reg Bed Request Complete 11/22/2024 05:27:58 11/22/2024 05:27:58 11/22/2024 05:27:58 Meds Admin Complete 11/22/2024 05:29:02 11/22/2024 06:07:56 Meds Admin Complete 11/22/2024 05:29:56 11/22/2024 06:09:30 Meds Admin Request 11/22/2024 05:47:32 RT Tx/ABG Request 11/22/2024 05:52:06 Consult Request 11/22/2024 05:54:24 Meds Admin Request 11/22/2024 06:21:47 Consult Request 11/22/2024 06:40:09 Hospitalist Consult Request 11/22/2024 06:40:09 Pending Labs Request 11/22/2024 06:41:44 Admit Request 11/22/2024 06:43:32 Patient Care Request 11/22/2024 06:43:34 Patient Care Request 11/22/2024 06:43:34 Patient Care Request 11/22/2024 06:43:34 Patient Care Request 11/22/2024 06:43:34 Patient Care Request 11/22/2024 06:43:35 Patient Care Request 11/22/2024 06:43:36 Consult Request 11/22/2024 07:26:09 Pending Labs Complete 11/22/2024 07:28:14 11/22/2024 07:28:14 11/22/2024 07:39:50 Patient Care Request 11/22/2024 07:34:09 Patient Care Request 11/22/2024 07:40:32 RT Request 11/22/2024 07:40:32 NPO Request 11/22/2024 07:40:32 Pending Labs Request 11/22/2024 07:40:32 Lab Request 11/22/2024 07:40:32 Meds Admin Request 11/22/2024 07:40:32 Pending Labs Inlab 11/22/2024 07:40:40 11/22/2024 07:40:40 ADDRESS: [address] [place] [id number] PHYS DOC NOTES: MEDICAL INFORMATION: Prescriptions Given: Medications to Continue with No Changes Other Medications acetaminophen-oxycodo ne (Percocet 5 mg-325 mg oral tablet) 1 [...] as needed Nausea/Vomiting. Refills: 0. metoclopramide (Reglan) ond (more content not included)... Normal [facility] ED Note-Physicianon 11-23-19 ED Note-Physician ED Note-Physician Basic Information Time Seen: Alfred Graham DO 11/22/2024 03:40 History of Present Illness Patient is a 29-year-old female past medical history of Crohn's disease status post colostomy ileostomy, bipolar disorder presenting to the ED for evaluation of seizure. History is unobtainable from the patient on arrival as she is actively seizing. Per mother patient started complaining of a headache earlier this evening approximately 2 hours later heard some thumping coming from her room and found her having a seizure. EMS was called patient had several seizures and route for them was given Versed. Review of Systems Unable to be obtained Physical Exam Vitals & Measurements HR: 69(Monitored) RR: 20 BP: 110/79 SpO2: 100% HT: 167 cm WT: 57 kg BMI: 20.44 General: Well developed, ill-appearing HEENT: Head atraumatic, Mucosa moist, hearing grossly normal Neck: No JVD, tracheal deviation Cardiac: Tachycardiac, regular rhythm no murmurs, or gallops, 2+ radial pulses Respiratory: Lungs clear to auscultation B/L, normal respiratory effort Abdomen: Soft non tender, no rebound or guarding, no peritoneal signs Extremities: No edema noted in the LE B/L, no tenderness to palpation, ileostomy in place to the lower abdomen Neurologic: Unresponsive GCS 3, head turn to the left during the seizures with twitching of the arms and the legs Skin: No rashes or lesions Procedure Intubation: My intubation RSI was performed using Etomidate 20 mg, Rocuronium 50 mg Using Glidescope a Grade 1 view was obtained. The pt was intubated using a 7.5 ET tube on the 1st attempt, secured at 22 cm at the teeth. Place was confirmed with visualization of the tube through the cords, equal breath sounds B/L and absence of sounds over the epigastrium, CO2 color change, and a good capnography waveform. CXR was reviewed and showed the ET tube to be in good position. Medical Decision Making MEDICAL DECISION MAKING Number and Complexity of Problems Differential Diagnosis: [] [facility] Data External documents reviewed: [] My EKG interpretation: [] My CT interpretation: [] My X-ray interpretation: [] My Ultrasound interpretation: [] Decision rules/scores evaluated: [] Discussed with: [] Treatment and Disposition ED Course: Patient is a 29-year-old female presenting to the ED for evaluation of new onset seizure. Patient actively seizing on arrival, after seizure patient's GCS is 3 not responding to painful stimuli. Mvpaf-yd-upyx glucose is normal, patient is given Narcan with minimal improvement of her mental status. Decision made to intubate the patient for airway protection due to concern she is not adequately protecting her airway with a GCS of 3. Patient is given 20 mg of etomidate, 50 mg of rocuronium intubated on the first attempt with a 7.5 ET tube. Septic workup is obtained and shows a leukocytosis of 26 likely secondary to the seizure lactic acid is elevated at 4.7 magnesium is low at 1.2 potassium is 2.9 otherwise laboratory evaluations unremarkable. Troponin is elevated at 96 however both believe this is likely secondary to demand due to significant tachycardia in the 140s to 170s. Patient started on propofol for sedation required several boluses in order to maintain adequate sedation. Due to this patient is switched to Precedex as we cannot do fentanyl with the recent Narcan administration. Patient is loaded with [address] imaging is obtained shows no acute findings CTAs with no aneurysm or large vessel occlusion. No evidence of subarachnoid. CT of the neck chest abdomen pelvis all negative. Discussed the case with [facility] Dr. Cuadra who reviewed the imaging does not see any evidence of bleed advises patient can stay at this facility if we are comfortable. Discussed case with the hospitalist and family they are in agreement with this plan. Shared decision making: [] Code status: [] CC time: 85 minutes Due to a high probability of clinically significant, life threatening deterioration, the patient required my highest level of preparedness to intervene emergently and I personally spent this critical care time directly and personally managing the patient. This critical care time included obtaining a history; examining the patient; pulse oximetry; ordering and review of studies; arranging urgent treatment with development of a management plan; evaluation of patient's response to treatment; frequent reassessment; and, discussions with other providers. This critical care time was performed to assess and manage the high probability of imminent, life-threatening deterioration that could result in patient deterioration. It was exclusive of separately billable procedures and treating other patients and teaching time. Assessment/Plan Acidosis, lactic (E87.20: Acidosis, unspecified) Acute respiratory failure with hypoxia (J96.01: Acute respiratory failure with hypoxia) Generalized seizure (R56.9: Unspecified convuls (more content not included)... Normal [facility] Comment on above: Result Comment: Elec tronically Signed By: Alfred Graham DO\.br\Date and Time Signed: 11/22/24 06:46 EST ED Patient Education Noteon 11-22-2024 ED Patient Education Note ED Patient Education Note Normal [facility] ED Patient Summaryon 025 ED Patient Summary ED Patient Summary [place] [id number] Patient Discharge Instructions Person Information Name: ROLA AGUILAR Age: 29 Years Arrival Date: 11/22/2024 03:17:21 Discharge Diagnosis: Acidosis, lactic; Acute respiratory failure with hypoxia; Generalized seizure; Hypokalemia; Hypomagnesemia Primary Care Physician: NONE, XXXX Provider Information Primary Provider: Alfred Graham DO Advanced Implementation Lead:None The exam and treatment you received in the Emergency Department were for an urgent problem and are not intended as complete care. It is important that you follow up with a doctor, nurse practitioner, or physician???s back office medical assistant for ongoing care. If your symptoms become worse or you do not improve as expected and you are unable to reach your usual health care provider, you should return to the Emergency Department. We are available 24 hours a day. SHENROLA JAIME Ed has been given the following list of patient education materials, prescriptions and follow-up instructions: Follow-up Instructions: In the event that this physician does not participate in your insurance network, please consult with your insurance company to find a nearby participating provider. Patient Education Materials: A MESSAGE TO ALL PATIENTS REGARDING OPIOIDS PRESCRIPTION OPIOIDS: WHAT YOU NEED TO KNOW Prescription opioids can be used to help relieve rnfsafrl-lf-fgbgnd pain and are often prescribed following a [...] guidance from the Food and Drug Administration (www.fda.gov/Drugs/Re sourcesForYou). ??? Visit www.cdc.gov/drugoverd ose to learn about the risks of opioids abuse and overdose. ??? If you believe you may be struggling with addiction, tell your health career representative and ask for guidance or call [facility]???S Ebook Glue Helpline at [phone]. q Source (more content not included)... Normal [facility] Ethanolon 11-22-2024 Ethanol Lvl <10 Normal <=11 [facility] Comment on above: Performed By: #### 2 [id number] #### [facility] [address] [place] [address] Extra Blueon 11-22-2024 Tube Collected Plasma Yes Invalid Interpretation Code [facility] Comment on above: Performed By: #### 1 [id number] #### [facility] [address] [place] [address] Extra Roney 11-22-2024 WB Tube Collected Yes Invalid Interpretation Code [facility] Comment on above: Performed By: #### 1 [id number] #### [facility] [address] [place] [address] WB Tube Collected Yes Invalid Interpretation Code [facility] Comment on above: Performed By: #### 1 [id number] #### [facility] [address] [place] [address] FT Blood GasesOrdered By: Judith Desir on 11-22-2024 a/A Ratio Art 79.70 % Normal >=0.80% [facility] Resp Auto SS AaDO2 Art 35.0 mm[Hg] High 5.0 - 15.0 mmHg [facility] Resp Auto SS ACT. Rate 24 1 Invalid Interpretation Code [facility] Resp Auto SS Allens Test Positive (11/22/24 8:18 AM) Normal [facility] Resp Auto SS Base Excess Arterial 0.2 mmol/L Low >=2.8mmol/L [facility] C Resp Auto SS cCa2+ Art 4.38 mg/dL Low 4.40 - 5.30 mg/dL [facility] Resp Auto SS cCl- Art 112.0 mmol/L High 101.0 - 111.0 mmol/L FT Resp Auto SS cGlu Art 75 mg/dL Normal 55 - 99 mg/dL FT Resp Auto SS cK+ Art 3.0 mmol/L Low 3.5 - 5.3 mmol/L [facility] Resp Auto SS cLac Art 3.1 mmol/L High 0.5 - 2.2 mmol/L [facility] Resp Auto SS air intelligence specialist+ Art 146.0 mmol/L High 135.0 - 145.0 mmol/L [facility] Resp Auto SS Device Ventilator (11/22/24 8:18 AM) Normal [facility] Resp Auto SS Drawn by LIVIER Invalid Interpretation Code [facility] Resp Auto SS FCOHb Art 1.1 % Low 1.5 - 4.9 % [facility] Resp Auto SS Comment on above: Interpretive Data: R eference range Nonsmoker <1.5% Smoker <5.0% Heavy Smoker <9.0% FMetHb Art 0.2 % Normal 0.0 - 1.9 % [facility] Resp Auto SS FO2Hb Art 98.8 % Normal 92.0 - 100.0 % [facility] Resp Auto SS Hemoglobin (Bld) [Mass/Vol] 9.8 g/dL Low 12.0 - 16.0 gm/dL [facility] Resp Auto SS P CO2 Arterial 33.7 mm[Hg] Low 35.0 - 45.0 mmHg [facility] Resp Auto SS P O2 Arterial 137.0 mm[Hg] Invalid Interpretation Code 80.0 - 100.0 mmHg [facility] Resp Auto SS Comment on above: Result Comment: Resu lts Called To SHELLI JAIMES BY MARTHA DESIR _ And Read Back For Confirmation On11/22/2024 09:13:20 EST _. pH (Bld) 7.457 [pH] High 7.350 - 7.450 [facility] Resp Auto SS Sample Site R Radial (11/22/24 8:18 AM) Normal [facility] Resp Auto SS Sample Type Arterial Draw (11/22/24 8:18 AM) Normal [facility] Resp Auto SS Sodium [Moles/Vol] 5 mmol/L Invalid Interpretation Code [facility] Resp Auto SS Sodium [Moles/Vol] 20 mmol/L Invalid Interpretation Code [facility] Resp Auto SS Sodium [Moles/Vol] 300 mmol/L Invalid Interpretation Code [facility] Resp Auto SS Sodium [Moles/Vol] 30.0 mmol/L Invalid Interpretation Code [facility] Resp Auto SS Vent Mode AC/VC Invalid Interpretation Code [facility] Resp Auto SS FT Blood GasesOrdered By: Kenny Portillo on 11-22-2024 Allens Test Not Applicable (11/22/24 6:15 AM) Normal [facility] Resp Auto SS Drawn by lamine jacques Invalid Interpretation Code [facility] Resp Auto SS pH (Bld) 7.226 [pH] Invalid Interpretation Code 7.350 - 7.450 [facility] Resp Auto SS Comment on above: Result Comment: Resu lts Called To DR. Graham By Lamine Jacques11/22/2024 06:24:57 EST And Read Back For Confirmation On _. Sample Site R Radial (11/22/24 6:15 AM) Normal [facility] Resp Auto SS Sample Type Arterial Draw (11/22/24 6:15 AM) Normal [facility] Resp Auto SS Sodium [Moles/Vol] 50 mmol/L Invalid Interpretation Code [facility] Resp Auto SS FT Blood GasesOrdered By: Florencia Veliz on 11-22-2024 Allens Test Not Applicable (11/22/24 3:52 AM) Normal [facility] Resp Auto SS Base Excess Arterial -10.3 mmol/L Low >=2.8mmol/L [facility] Resp Auto SS cCa2+ Art 4.37 mg/dL Low 4.40 - 5.30 mg/dL [facility] Resp Auto SS cCl- Art 114.0 mmol/L High 101.0 - 111.0 mmol/L [facility] Resp Auto SS cGlu Art 181 mg/dL High 55 - 99 mg/dL [facility] Resp Auto SS cK+ Art 2.5 mmol/L Invalid Interpretation Code 3.5 - 5.3 mmol/L [facility] Resp Auto SS Comment on above: Result Comment: Resu lts Called To Dr. Georgia Graham By Lamine Veliz RCP_ And Read Back For Confirmation On 04:03:10 EST. cLac Art 9.6 mmol/L Invalid Interpretation Code 0.5 - 2.2 mmol/L [facility] Resp Auto SS Comment on above: Result Comment: Resu lts Called To Dr. Georgia Graham By Lamine Veliz [facility]_ And Read Back For Confirmation On 04:03:10 EST. air intelligence specialist+ Art 149.0 mmol/L High 135.0 - 145.0 mmol/L [facility] Resp Auto SS Device Ventilator (11/22/24 3:52 AM) Normal [facility] Resp Auto SS Drawn by aLmine Jacques Invalid Interpretation Code [facility] Resp Auto SS FCOHb Art 0.9 % Low 1.5 - 4.9 % [facility] Resp Auto SS Comment on above: Interpretive Data: R eference range Nonsmoker <1.5% Smoker <5.0% Heavy Smoker <9.0% FMetHb Art 1.0 % Normal 0.0 - 1.9 % [facility] Resp Auto SS FO2Hb Art 98.8 % Normal 92.0 - 100.0 % [facility] Resp Auto SS P CO2 Arterial 40.0 mm[Hg] Normal 35.0 - 45.0 mmHg [facility] Resp Auto SS P O2 Arterial 233.0 mm[Hg] Invalid Interpretation Code 80.0 - 100.0 mmHg [facility] Resp Auto SS Comment on above: Result Comment: Resu lts Called To Dr. Georgia Graham By Lamine COLIN_ And Read Back For Confirmation On 04:03:10 EST. pH (Bld) 7.226 [pH] Invalid Interpretation Code 7.350 - 7.450 [facility] Resp Auto SS Comment on above: Result Comment: Resu lts Called To Dr. Georgia Graham By Lamine COLINP_ And Read Back For Confirmation On 04:03:10 EST. Sample Site R Radial (11/22/24 3:52 AM) Normal [facility] Resp Auto SS Sample Type Arterial Draw (11/22/24 3:52 AM) Normal [facility] Resp Auto SS Sodium [Moles/Vol] 5 mmol/L Invalid Interpretation Code [facility] Resp Auto SS Sodium [Moles/Vol] 12 mmol/L Invalid Interpretation Code [facility] Resp Auto SS Sodium [Moles/Vol] 300 mmol/L Invalid Interpretation Code [facility] Resp Auto SS Sodium [Moles/Vol] 50 mmol/L Invalid Interpretation Code [facility] Resp Auto SS Vent Mode AC Invalid Interpretation Code [facility] Resp Auto SS HEMATOLOGYOrdered By: SYSTEM SYSTEM on 11-22-2024 Band form neutrophils/100 WBC (Bld) 2.0 % Normal 0.0 - 6.0 % Remisol Heme Basophils (Bld) [#/Vol] 0.0 E9/L Normal 0.0 - 0.2 E9/L [facility] Heme Basophils/100 WBC (Bld) 0.0 % Normal 0.0 - 2.0 % [facility] Heme Eosinophils (Bld) [#/Vol] 0.0 E9/L Normal 0.0 - 0.5 E9/L [facility] Heme Eosinophils/100 WBC (Bld) 0.0 % Normal 0.0 - 8.0 % [facility] Heme Lymphocytes (Bld) [#/Vol] 1.5 E9/L Normal 1.0 - 4.0 E9/L [facility] Heme Lymphocytes/100 WBC (Bld) 12.0 % Low 14.0 - 50.0 % Rem[facility] Heme Monocytes (Bld) [#/Vol] 0.9 E9/L Normal 0.2 - 1.0 E9/L [facility] Heme Monocytes/100 WBC (Bld) 7.0 % Normal 4.0 - 14.0 % [facility] Heme Neutrophils (Bld) [#/Vol] 10.4 E9/L Invalid Interpretation Code [facility] Polychromasia LM Ql (Bld) PRESENT *NA* (11/22/24 11:47 AM) Invalid Interpretation Code [facility] RBC size Nom (Bld) SEE MORPHOLOGY *NA* (11/22/24 11:47 AM) Invalid Interpretation Code [facility] Segmented neutrophils/100 WBC (Bld) 79.0 % High 36.0 - 75.0 % [facility] Heme Band form neutrophils/100 WBC (Bld) 13.0 % High 0.0 - 6.0 % Remisol Heme Basophils (Bld) [#/Vol] 0.0 E9/L Normal 0.0 - 0.2 E9/L Rem[facility] Heme Basophils/100 WBC (Bld) 0.0 % Normal 0.0 - 2.0 % Remisol Heme Eosinophils (Bld) [#/Vol] 0.0 E9/L Normal 0.0 - 0.5 E9/L [facility] Heme Eosinophils/100 WBC (Bld) 0.0 % Normal 0.0 - 8.0 % [facility] Heme Lymphocytes (Bld) [#/Vol] 3.9 E9/L Normal 1.0 - 4.0 E9/L [facility] Heme Lymphocytes/100 WBC (Bld) 15.0 % Normal 14.0 - 50.0 % [facility] Heme Metamyelocytes/Leukocy terry Manual cnt (Bld) [Pure # fraction] 3.0 % High 0.0 - 0.0 % [facility] Heme Monocytes (Bld) [#/Vol] 2.1 E9/L High 0.2 - 1.0 E9/L [facility] Heme Monocytes/100 WBC (Bld) 8.0 % Normal 4.0 - 14.0 % [facility] Heme Myelocytes/100 WBC (Bld) 4.0 % High 0.0 - 0.0 % [facility] Heme Neutrophils (Bld) [#/Vol] 18.2 E9/L Invalid Interpretation Code [facility] Heme RBC size Nom (Bld) NORMAL *NA* (11/22/24 3:46 AM) Invalid Interpretation Code [facility] Segmented neutrophils/100 WBC (Bld) 57.0 % Normal 36.0 - 75.0 % [facility] Heme Hep Func Panelon 11-22-2024 Albumin [Mass/Vol] 2.5 g/dL Low 3.3-5.0 [facility] Comment on above: Performed By: #### 2 [id number] #### [facility] [address] [place] [address] Albumin/Globulin (S) [Mass conc ratio] 0.8 Low 1.1-2.2 [facility] Comment on above: Performed By: #### 2 [id number] #### [facility] [address] [place] [address] ALP [Catalytic activity/Vol] 109 Int._Unit/L High 21-98 [facility] Comment on above: Performed By: #### 2 [id number] #### [facility] [address] [place] [address] ALT No additional P-5'-P [Catalytic activity/Vol] 20 Int._Unit/L Normal 6-46 [facility] Comment on above: Performed By: #### 2 [id number] #### [facility] [address] [place] [address] AST [Catalytic activity/Vol] 40 Int._Unit/L Normal 5-43 [facility] Comment on above: Performed By: #### 2 [id number] #### [facility] [address] [place] [address] Bilirubin [Mass/Vol] 0.3 mg/dL Normal 0.0-1.[address] [facility] Comment on above: Performed By: #### 2 [id number] #### [facility] [address] [place] [address] Bilirubin.direct [Mass/Vol] 0.1 mg/dL Normal 0.0-0.4 [facility] Comment on above: Performed By: #### 2 [id number] #### [facility] [address] [place] [address] Bilirubin.indirect [Mass or moles/Vol] 0.2 mg/dL Normal 0.1-0.9 [facility] Comment on above: Performed By: #### 2 [id number] #### [facility] [address] [place] [address] Globulin (S) [Mass/Vol] 3.2 g/dL Normal 1.4-4.0 [facility] Comment on above: Performed By: #### 2 [id number] #### [facility] [address] [place] [address] Protein [Mass/Vol] 5.7 g/dL Low 6.0-7.8 [facility] Comment on above: Performed By: #### 2 [id number] #### [facility] [address] [place] [address] Lactic Acidon 11-22-2024 Lactic Acid Lvl 2.6 mmol/L High 0.5-2.2 [facility] Comment on above: Order Comment: Order added by EKS Rule. (FT_LACTIC_ACID_REFLEX) Adds reflex Lactic Acid 4 hours after initial if result is greater than or equal to 2.0. Performed By: #### 2 [id number] #### [facility] [address] [place] [address] Lactic Acid Lvl 2.4 mmol/L High 0.5-2.2 [facility] Comment on above: Performed By: #### 2 [id number] #### [facility] [address] [place] [address] Lactic Acid Lvl 4.4 mmol/L High 0.5-2.2 [facility] Comment on above: Order Comment: Order added by EKS Rule. (FT_LACTIC_ACID_REFLEX) Adds reflex Lactic Acid 4 hours after initial if result is greater than or equal to 2.0. Performed By: #### 2 [id number] #### [facility] [address] [place] [address] Lactic Acid Lvl 4.2 mmol/L High 0.5-2.2 [facility] Comment on above: Performed By: #### 2 [id number] #### [facility] [address] [place] [address] Magnesiumon 11-22-2024 Magnesium [Mass/Vol] 1.9 mg/dL Normal 1.3-2.[address] [facility] Comment on above: Performed By: #### 2 [id number] #### [facility] [address] [place] [address] Magnesium [Mass/Vol] 1.2 mg/dL Low 1.3-2.[address] [facility] Comment on above: Performed By: #### 2 [id number] #### [facility] [address] [place] [address] No Panel InformationOrdered By: VICENTEPROCESSSERVER MICROBIOLOGY on 11-22-2024 Blood Culture Charcoal No growth at 3 da ys. Final to follow at 7 days. [facility] No Panel InformationOrdered By: Marleen Muñiz on 11-22-2024 Blood Culture Charcoal Staphylococcus species coagulase negative In 1 of 2 blood culture bottles drawn. Isolated from aerobic bottle Result called to Dr. Rodriguez by [facility] and results read back for confirmation on 11/23/2024 11:55:43 [facility] PT & PTTon 11-22-2024 aPTT Coag (PPP) [Time] 27.3 second(s) Normal 25.1-36.5 [facility] Comment on above: Result Comment: Para meter [...] the same coagulation reagent and instrumentation as [facility]. Currently there are no coagulation studies available worldwide for children to 14 days, and no normal ranges. Heparin therapeutic range (represented by Anti-Factor Xa activity of 0.2 - 0.4 U/mL) corresponds to PTT of 56.6 - 109.0 sec. Performed By: #### 1 [id number] #### [facility] [address] [place] [address] INR Coag (PPP) [Relative time] 0.94 {INR} Invalid Interpretation Code [facility] Comment on above: Result Comment: INR results are specifically intended to assess patients stabilized on long-term Anticoagulation therapy suggested INR???s ???Less Intensive Anticoagulation??? 2.0 ??? 3.0 Conventional Range 3.0 ??? 4.5 Performed By: #### 1 [id number] #### [facility] [address] [place] [address] PT Coag (PPP) [Time] 10.5 second(s) Normal 9.4-12.5 [facility] Comment on above: Result Comment: 15 d ays - 4 weeks 1 - 5 months 6 -11 months 1 ??? 5 years 6 ??? 10 years 11 -17 years Mean: 11.2 (9.5 ??? 12.6) Mean: 11.0 (9.7 ??? 12.8) Mean: 11.0 (9.8 ??? 13.0) Mean: 11.3 (9.9 ??? 13.4) Mean: 11.7 (10.0 ??? 14.6) Mean: 11.8 (10.0 - 14.1) Pediatric Reference ranges were obtained from a study by Charli Araay et al. prepared from 1437 samples obtained at 7 different centers using the same coagulation reagent and instrumentation as [facility]. Currently there are no coagulation studies available worldwide for children to 14 days, and no normal ranges. Performed By: #### 1 [id number] #### [facility] [address] [place] [address] Phosphoruson 11-22-2024 Phosphate [Mass/Vol] 1.3 mg/dL Low 1.9-4.[address] [facility] Comment on above: Performed By: #### 2 [id number] #### [facility] [address] [place] [address] Pre-Arrival Noteon Pre-Arrival Note Pre-Arrival Note Pre-Arrival Summary Name: , Current Date: 11/22/2024 03:41:49 EST Gender: Female Date of : Age: 30 Pre-Arrival Type: EMS ETA: 11/22/2024 03:39:00 EST Primary Care Physician: Presenting Problem: AMS, Convulsion Pre-Arrival User: Prosper Durbin RN Referring Source: Location: [place] Completion Date/Time: 11/22/2024 03:09:00 [facility] Emergency Department Pre-Hospital Report Form Vital Signs: Pre-Hospital Report: Treatment in Route: Response to Treatment: Misc. Issues: Normal [facility] Procalcitoninon 11-22-2024 Procalcitonin .60 ng/mL High .00-.50 [facility] Comment on above: Result Comment: <0.5 ng/mL Low risk of severe sepsis and/or shock >2.0 ng/mL High risk of severe sepsis and/or shock Concentrations under 0.5 ng/mL do not exclude local infections or systemic infections in their initial stages (e.g.. under six hours from onset of illness). PCT concentrations between 0.5 and 2.0 ng/mL should be interpreted with consideration of the patient's history. In this range, it is recommended to retest PCT within 6 to 24 hours. Performed By: #### 2 [id number] #### [facility] [address] [place] [address] Troponin 0 Hr.on 11-22-2024 Troponin HS 94.30 pg/mL Abnormal 10.10-27.10 [facility] Comment on above: Result Comment: Crit ical Result Verified by Repeat Analysis Critical Result I_TnIHS:94.3 Called to and read back by: HERBERT WADE/ER at: 11/22/2024 05:24:16 by:KARENA GARDINER The 95% CI (Confidence Interval) PPV (Positive Predictive Value) for myocardial infarction in females is 38 pg/mL, in males 51 pg/mL. The results should be used in conjunction with clinical conditions of myocardial infarction. (Access High Sensitivity Troponin I Instructions For Use, Jannette Savannah, April 2018) Performed By: #### 1 [id number] #### [facility] [address] [place] [address] Troponin 3 Hr.on 11-22-2024 Troponin HS 499.80 pg/mL Abnormal 10.10-27.10 [facility] Comment on above: Result Comment: Crit ical Result Verified by Previous Result Attempted to call at 0928 Critical Result I_TnIHS:499.8 Called to and read back by: KAMRAN ADHIKARI at: 11/22/2024 10:07:37 by:PEEWEE The 95% CI (Confidence Interval) PPV (Positive Predictive Value) for myocardial infarction in females is 38 pg/mL, in males 51 pg/mL. The results should be used in conjunction with clinical conditions of myocardial infarction. (Access High Sensitivity Troponin I Instructions For Use, [employer], April 2018) Performed By: #### 1 [id number] #### [facility] [address] [place] [address] Troponin 6 Hr.on 11-22-2024 Troponin HS 469.60 pg/mL Abnormal 10.10-27.10 [facility] Comment on above: Result Comment: Crit ical Result I_TnIHS:469.6 Called to and read back by: KAMRAN ARCE at: 11/22/2024 13:16:54 by:PEEWEE Critical Result Verified by Previous Result The 95% CI (Confidence Interval) PPV (Positive Predictive Value) for myocardial infarction in females is 38 pg/mL, in males 51 pg/mL. The results should be used in conjunction with clinical conditions of myocardial infarction. (HALKAR High Sensitivity Troponin I Instructions For Use, [employer], April 2018) Performed By: #### 1 [id number] #### [facility] [address] [place] [address] U Drug Screenon 11-22-2024 Amphetamines Screen method >1000 ng/mL Ql (U) Negative Normal NEGATIVE [facility] Comment on above: Result Comment: Nega tive Cutoff: <1000 ng/mL Performed By: #### 2 [id number] #### [facility] [address] [place] [address] Barbiturates Screen Ql (U) Negative Normal NEGATIVE [facility] Comment on above: Result Comment: Nega tive Cutoff: <200 ng/mL Performed By: #### 2 [id number] #### [facility] [address] [place] [address] Benzodiazepines Ql (U) Positive Abnormal NEGATIVE [facility] Comment on above: Result Comment: Crit ical Result Verified by Repeat Analysis No Confirmation Requested by Physician Unconfirmed by an Alternate Method Negative Cutoff: <200 ng/mL Performed By: #### 2 [id number] #### [facility] [address] [place] [address] Cannabinoids Screen Ql (U) Positive Abnormal NEGATIVE [facility] Comment on above: Result Comment: Crit ical Result Verified by Repeat Analysis No Confirmation Requested by Physician Unconfirmed by an Alternate Method Negative Cutoff: <50 ng/mL Performed By: #### 2 [id number] #### [facility] [address] [place] [address] Cocaine Ql (U) Negative Normal NEGATIVE [facility] Comment on above: Result Comment: Nega tive Cutoff: <300 ng/mL Performed By: #### 2 [id number] #### [facility] [address] [place] [address] Opiates Screen Ql (U) Negative Normal NEGATIVE [facility] Comment on above: Result Comment: Nega tive Cutoff: <300 ng/mL Performed By: #### 2 [id number] #### [facility] [address] [place] [address] Phencyclidine Screen method >25 ng/mL Ql (U) Negative Normal NEGATIVE [facility] Comment on above: Result Comment: Nega tive Cutoff: <25 ng/mL These drug screen results are to be used for medical (i.e., treatment) purposes only. Unconfirmed drug screening results must not be used for non-medical purposes (e.g., employment testing, legal testing). Performed By: #### 2 [id number] #### [facility] [address] [place] [address] U Fentanyl Negative Normal NEGATIVE [facility] Comment on above: Result Comment: Nega tive Cutoff: <5 ng/mL These drug screen results are to be used for medical (i.e., treatment) purposes only. Unconfirmed drug screening results must not be used for non-medical purposes (e.g., employment testing, legal testing). Performed By: #### 2 [id number] #### [facility] [address] [place] [address] UA with Cult Rflxon 11-23-19 Type of Urine collection method Catheter Normal [facility] Comment on above: Result Comment: john wilfrido specimen type from clean catch to catheter Performed By: #### 4 [id number] #### [facility] [address] [place] [address] Bilirubin Ql (U) Negative Normal Negative [facility] Comment on above: Performed By: #### 4 [id number] #### [facility] [address] [place] [address] Clarity (U) Clear Normal Clear [facility] Comment on above: Performed By: #### 4 [id number] #### [facility] [address] [place] [address] Color (U) Colorless Abnormal Yellow [facility] Comment on above: Result Comment: Micr oscopic readings are only performed on those samples that meet specific criteria set forth by [facility]. Performed By: #### 4 [id number] #### [facility] [address] [place] [address] Glucose Ql (U) Negative Normal Negative [facility] Comment on above: Performed By: #### 4 [id number] #### [facility] [address] [place] [address] Hemoglobin Auto test strip (U) [Mass/Vol] Negative Normal Negative [facility] Comment on above: Performed By: #### 4 [id number] #### [facility] [address] [place] [address] Ketones Auto test strip Ql (U) Negative Normal Negative [facility] Comment on above: Performed By: #### 4 [id number] #### [facility] [address] [place] [address] Leukocyte esterase Auto test strip Ql (U) Negative Normal Negative [facility] Comment on above: Performed By: #### 4 [id number] #### [facility] [address] [place] [address] Nitrite Auto test strip Ql (U) Negative Normal Negative [facility] Comment on above: Performed By: #### 4 [id number] #### [facility] [address] [place] [address] pH (U) 6.5 [pH] Invalid Interpretation Code 5.0-9.0 [facility] Comment on above: Performed By: #### 4 [id number] #### [facility] [address] [place] [address] Protein Ql (U) Negative Normal Negative [facility] Comment on above: Performed By: #### 4 [id number] #### [facility] [address] [place] [id number] Specific gravity (U) [Rel density] 1.025 Invalid Interpretation Code 1.005-1.030 [facility] Comment on above: Performed By: #### 4 [id number] #### [facility] [address] [place] [address] Urobilinogen (U) [Mass/Vol] Negative Normal Negative [facility] Comment on above: Performed By: #### 4 [id number] #### [facility] [address] [place] [address] Type of Urine collection method Clean Catch Normal [facility] Comment on above: Performed By: #### 4 [id number] #### [facility] [address] [place] [address] URINALYSISOrdered By: SYSTEM SYSTEM on 11-22-2024 Bilirubin Ql (U) Negative Normal Negativemg/dL [facility] UA Auto SS Clarity (U) Clear (11/22/24 5:01 AM) Normal Clear [facility] UA Auto SS Color (U) Colorless 4 *ABN* (11/22/24 5:01 AM) Invalid Interpretation Code Yellow [facility] Auto SS Comment on above: Interpretive Data: M icroscopic readings are only performed on those samples that meet specific criteria set forth by [facility]. Glucose Ql (U) Negative Normal Negativemg/dL [facility] UA Auto SS Hemoglobin Auto test strip (U) [Mass/Vol] Negative Normal Negativemg/dL [facility] UA Aut o SS Ketones Auto test strip Ql (U) Negative Normal Negativemg/dL [facility] UA Auto SS Leukocyte esterase Auto test strip Ql (U) Negative Normal NegativeLeu/uL FT UA A uto SS Nitrite Auto test strip Ql (U) Negative Normal Negativemg/dL [facility] UA Auto SS pH (U) 6.5 *NA* (11/22/24 5:01 AM) Invalid Interpretation Code 5.0 - 9.0 [facility] UA Auto SS Protein Ql (U) Negative Normal Negativemg/dL [facility] UA Auto SS Specific gravity (U) [Rel density] 1.025 *NA* (11/22/24 5:01 AM) Invalid Interpretation Code 1.005 - 1.030 [facility] UA Auto SS Urobilinogen (U) [Mass/Vol] Negative Normal Negativemg/dL [facility] UA Auto SS URINALYSISOrdered By: Georgia Graham on 11-22-2024 UA Spec Desc Catheter 7 (11/22/24 5:01 AM) Normal [facility] UA Auto SS Comment on above: Result Comment: alvaro anna specimen type from clean catch to catheter eGFRon 11-22-2024 eGFR 124 mL/min/1.73 m2 Normal >=59 [facility] Comment on above: Performed By: #### 1 [id number] #### [facility] [address] [place] [address] eGFR 120 mL/min/1.73 m2 Normal >=59 [facility] Comment on above: Performed By: #### 1 [id number] #### [facility] [address] [place] [address] ED Note-Physicianon 11-16-19 ED Note-Physician ED Note-Physician Basic Information Time Seen: Ramesh LEDESMA, Wil Amaya 11/14/2024 17:34 Chief Complaint pt reports she has had a crohn's flare up for the past year. states has a ostomy that has been painful and is now having bm's through herrectum and has no control over them. reports abd pin/diarrhea. History of Present Illness A 29-year-old female reports Emergency Department with concerns of abdominal pain. Reports that she has a ostomy, and now has been painful. Reports that she is having some discharge from her rectum as well. Reports that she is having abdominal pain and diarrhea. Reports that she feels like she is having a flareup. She states that she is very anxious with this as well. Reports feels unwell. Reports allergies to Dilaudid. She denies any chest pain or shortness of breath. Denies any fevers or chills. Reports nausea with some mild vomiting. Does follow-up with a GI doctor at the [facility]. Review of Systems no other aggravating or relieving factors no other associated symptoms no other prior treatments or complaints. Family: Reviewed and noncontributory Social: lives at home Review of systems negative unless otherwise specified in the HPI. Physical Exam Vitals & Measurements T: 36.9 ???C(Oral) HR: 106(Monitored) RR: 16 BP: 96/64 SpO2: 100% HT: 167 cm WT: 53.1 kg BMI: 19.04 General: The patient appears well and in no apparent distress. Patient is resting comfortably on bed. Afebrile Skin: Warm, dry, no pallor noted. Head: Normocephalic, atraumatic Neck: No JVD Eye: PERRLA, EOMI ENT: Moist mucus membranes Cardiovascular: Tachycardic rate. normal peripheral perfusion. Radial pulses +2 bilaterally Respiratory: No respiratory distress. no accessory muscle use. no obvious audible wheezing Chest Wall: no deformity Musculoskeletal: normal ROM, no deformity, no swelling GI: No obvious distention. Abdomen is tender on palpation, but no rebound tenderness seen. No obvious deformity. No blood seen in ostomy bag Neurological: A&O. moves all extremities equal strength and symmetry Psychiatric: Cooperative and appropriate Medical Decision Making MEDICAL DECISION MAKING Number and Complexity of Problems Differential Diagnosis: [] [facility] Data External documents reviewed: [] My EKG interpretation: Reviewed My CT interpretation: Reviewed My X-ray interpretation: Reviewed My Ultrasound interpretation: [] Decision rules/scores evaluated: [] Discussed with: [] Treatment and Disposition ED Course: A 29-year-old female reports to the emergency department with complaints of abdominal pain. Reports history of Crohn's disease. Initial presentation, she is very tachycardic. She does have a history of sinus tachycardia, we did do a full workup on the patient. Generalized hives throughout the entire abdomen. Lab work reviewed noted. No acute changes seen except that her calcium is critical at 6.0, but once we corrected due to albumin level, it is in within normal limits at 8.0. I did give the patient multiple rounds of medications to help her with her pain. I do a CT of her abdomen, that shows no change of her previous CTs. Likely Crohn's flareup at this time. We are able to get the patient's pain and nausea under control here in the emergency department. Discussed ultimately she can follow-up with her GI doctor at [facility] which she was understanding and stated that she would. Patient prescribed pain medication, nausea medication, and steroids for relief. Discussed return precautions. Follow-up with your primary care provider in 3 to 5 days. If symptoms worsen, do not improve, or new symptoms arise please report back to emergency department for further evaluation. The patient was understanding and agreeable to plan moving forward. Shared decision making: [] Code status: [] Assessment/Plan Crohn disease (K50.90: Crohn's disease, unspecified, without complications) Pain in abdomen on palpation (R10.9: Unspecified abdominal pain) Orders: acetaminophen-oxycodo ne, 1 EA, Tab, Oral, Once, Stop date 11/14/24 22:45:00 EST, STAT, Start date 11/14/24 22:45:00 EST acetaminophen-oxycodo ne, 1 tab(s), Oral, q6hr for pain for 2 day(s), 8 tab(s), Refill(s) 0, [facility]/pharmacy #[id number], 167, cm, 11/14/24 17:36:00 EST, Height/Length Dosing, 53.1, kg, 11/14/24 17:36:00 EST, Weight Dosing albumin human + Generic Diluent 100 mL, 25 gram = 100 mL, Soln-IV, IV Piggyback, Once, Stop date 11/14/24 21:56:00 EST, STAT, Start date 11/14/24 21:56:00 EST, 100 mL/hr, Infuse over 1 hour(s) dicyclomine, 20 mg = 2 mL, Injection, IntraMuscular, Once, Stop date 11/14/24 19:32:00 EST, STAT, Start date 11/14/24 19:32:00 EST, 11/14/24 19:32:00 EST dicyclomine, 10 mg = 1 cap(s), Oral, QID, X 7 day(s), # 28 cap(s), Refills(s) 0, Pharmacy: [facility]/pharmacy #[id number], 167, cm, 11/14/24 17:36:00 EST, Height/Length Dosing, 53.1, kg, 11/14/24 17:36:00 EST, Weight Dosing dicyclomine, 20 mg = 1 tab(s), Tab, Oral, Once, Stop date 02 (more content not included)... Normal [facility] Comment on above: Result Comment: Elec tronically Signed By: Wil Chandler PA-C\.br\Date and Time Signed: 11/14/24 23:24 EST\.br\Electronically Co-Signed By: Harry Devine DO\.br\Date and Time Co-Signed: 11/16/24 07:[address] Abdomen/Pelvis w/ Contras ton 11-15-2024 CT Abdomen/Pelvis w/ Contrast Exam Date/Time: 11/14/2024 19:19 EST Reason for Exam: ABDOMINAL PAIN, ACUTE, NONLOCALIZED;Other (please specify) Report IMPRESSION: DIFFUSE COLITIS AND TERMINAL ILEITIS COMPATIBLE WITH CROHN'S DISEASE. NO SIGNIFICANT INTERVAL CHANGE OF A RIGHT-SIDED PERIRECTAL FISTULA. HEPATOMEGALY AND HEPATIC STEATOSIS. EXAM: CT Abdomen/Pelvis w/ Contrast History: Abdominal pain. History of Crohn's disease. Technique: Multiple contiguous axial images were obtained of the abdomen and pelvis from the level of the lung bases through the ischial tuberosities with contrast. Multiplanar reformats were obtained. Delayed images were obtained. Unless otherwise stated, incidental findings identified in this report do not require routine follow-up imaging. Comparison: CT abdomen pelvis 10/02/2024 Findings: Lung bases are clear. Hepatic steatosis. The liver is enlarged measuring approximately 21 cm in craniocaudal length. The gallbladder, stomach, spleen, pancreas, and adrenal glands are within normal limits. The kidneys enhance uniformly. No urinary tract calculi or hydronephrosis. Urinary bladder is poorly distended but otherwise unremarkable. Uterus is present. Abdominal aorta is nonaneurysmal. No retroperitoneal or abdominal/pelvic lymphadenopathy. No small bowel obstruction. There is diffuse colon wall thickening with pericolonic inflammation and wall thickening of the terminal ileum without adjacent inflammation. These findings are slightly more prominent than on prior examination. Right lower quadrant ileostomy again identified. 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 No pneumatosis intestinalis, portal venous gas, or pneumoperitoneum. No free fluid or free air. No acute osseous abnormality. Report All CT scans at this facility use dose modulation, iterative reconstruction, and/or weight based dosing when appropriate to reduce radiation dose to as low as reasonably achievable. Ordering Provider: Wil Chandler FINAL REPORT Dictated: 11/15/2024 11:33 am Aldo Ken DO Signed (Electronic Signature): 11/15/2024 11:33 am Signed by: Aldo Ken DO Transcribed by: CLARICE Technologist: LUCINDA Pemberton [facility] Extra Blueon 11-15-2024 Tube Collected Plasma Yes Invalid Interpretation Code [facility] Comment on above: Performed By: #### 1 [id number] #### [facility] [address] [place] [address] XR Chest Single Viewon 11-15 XR Chest Single View Exam Date/Time: 11/14/2024 18:20 EST Reason for Exam: Other (please specify) Report IMPRESSION: NO RADIOGRAPHIC EVIDENCE OF ACUTE INTRATHORACIC PROCESS. EXAM: XR Chest Single View History: Abdominal pain Technique: Portable AP view of the chest. Comparison: 09/09/2018 Findings: The cardiomediastinal silhouette is within normal limits. No pneumothorax, pleural effusion, or consolidation. No acute osseous abnormality. Ordering Provider: Wil Chandler FINAL REPORT Dictated: 11/15/2024 8:53 am Aldo Ken DO Signed (Electronic Signature): 11/15/2024 8:53 am Signed by: Aldo Ken DO Transcribed by: CLARICE Technologist: SARAY Pemberton [facility] BMPon 11-14-2024 Anion gap [Moles/Vol] 7 mmol/L Normal 6-16 [facility] Comment on above: Order Comment: speci men hemolyzed. phlebotomists notified of recollect by message. [id number] 11/14/2024 19:09:19 EST Performed By: #### 2 [id number] #### [facility] [address] [place] [address] Calcium [Mass/Vol] 6.0 mg/dL Abnormal 8.9-11.1 [facility] Comment on above: Order Comment: speci men hemolyzed. phlebotomists notified of recollect by message. [id number] 11/14/2024 19:09:19 EST Result Comment: Crit ical Result Verified by Repeat Analysis Critical Result S_CA.0 Called to and read back by: SHIRLEY MASON at: 11/14/2024 20:13:52 by:[id number] Performed By: #### 2 [id number] #### [facility] [address] [place] [address] Chloride [Moles/Vol] 104 mmol/L Normal 101-[address] [facility] Comment on above: Order Comment: speci men hemolyzed. phlebotomists notified of recollect by message. [id number] 11/14/2024 19:09:19 EST Performed By: #### 2 [id number] #### [facility] [address] [place] [address] CO2 [Moles/Vol] 29 mmol/L Normal 21-31 [facility] Comment on above: Order Comment: speci men hemolyzed. phlebotomists notified of recollect by message. [id number] 11/14/2024 19:09:19 EST Performed By: #### 2 [id number] #### [facility] [address] [place] [address] Creatinine [Mass/Vol] 0.5 mg/dL Normal 0.5-1.3 [facility] Comment on above: Order Comment: speci men hemolyzed. phlebotomists notified of recollect by message. [id number] 11/14/2024 19:09:19 EST Performed By: #### 2 [id number] #### [facility] [address] [place] [address] Glucose [Mass/Vol] 90 mg/dL Normal 55-199 [facility] Comment on above: Order Comment: speci men hemolyzed. phlebotomists notified of recollect by message. [id number] 11/14/2024 19:09:19 EST Performed By: #### 2 [id number] #### [facility] [address] [place] [address] Potassium [Moles/Vol] 3.8 mmol/L Normal 3.5-5.3 [facility] Comment on above: Order Comment: speci men hemolyzed. phlebotomists notified of recollect by message. [facility] 11/14/2024 19:09:19 EST Performed By: #### 2 [id number] #### [facility] [address] [place] [address] Sodium [Moles/Vol] 136 mmol/L Normal 135-145 [facility] Comment on above: Order Comment: speci men hemolyzed. phlebotomists notified of recollect by message. [facility] 11/14/2024 19:09:19 EST Performed By: #### 2 [id number] #### [facility] [address] [place] [address] Urea nitrogen [Mass/Vol] 9 mg/dL Normal 5-21 [facility] Comment on above: Order Comment: speci men hemolyzed. phlebotomists notified of recollect by message. [facility] 11/14/2024 19:09:19 EST Performed By: #### 2 [id number] #### [facility] [address] [place] [address] Urea nitrogen/Creatinine [Mass ratio] 18 No Units Normal 10-20 [facility] Comment on above: Order Comment: speci men hemolyzed. phlebotomists notified of recollect by message. [facility] 11/14/2024 19:09:19 EST Performed By: #### 2 [id number] #### [facility] [address] [place] [address] CBC w/ Auto Diffon 5 Basophils/100 WBC (Bld) 0.1 % Normal 0.0-2.0 [facility] Comment on above: Performed By: #### 2 [id number] #### [facility] [address] [place] [address] Basophils/Leukocytes Auto (Bld) [Pure # fraction] 0.0 E9/L Normal 0.0-0.2 [facility] Comment on above: Performed By: #### 2 [id number] #### [facility] [address] [place] [address] Eosinophils (Bld) [#/Vol] 0.1 E9/L Normal 0.0-0.5 [facility] Comment on above: Performed By: #### 2 [id number] #### [facility] [address] [place] [address] Eosinophils/100 WBC (Bld) 0.5 % Normal 0.0-8.0 [facility] Comment on above: Performed By: #### 2 [id number] #### [facility] [address] [place] [address] Erythrocyte distribution width (RBC) [Ratio] 18.5 % High 10.9-14.2 [facility] Comment on above: Performed By: #### 2 [id number] #### [facility] [address] [place] [address] Hematocrit (Bld) [Volume fraction] 32.9 % Low 34.0-46.0 [facility] Comment on above: Performed By: #### 2 [id number] #### [facility] [address] [place] [address] Hemoglobin (Bld) [Mass/Vol] 10.9 g/dL Low 12.0-16.0 [facility] Comment on above: Performed By: #### 2 [id number] #### [facility] [address] [place] [address] Lymphocytes (Bld) [#/Vol] 1.1 E9/L Normal 1.0-4.0 [facility] Comment on above: Performed By: #### 2 [id number] #### [facility] [address] [place] [address] Lymphocytes/100 WBC (Bld) 9.4 % Low 14.0-50.0 [facility] Comment on above: Performed By: #### 2 [id number] #### [facility] [address] [place] [address] MCH (RBC) [Entitic mass] 28.7 pg Normal 27.0-34.0 [facility] Comment on above: Performed By: #### 2 [id number] #### [facility] [address] [place] [address] MCHC (RBC) [Mass/Vol] 33.0 g/dL Normal 31.4-36.0 [facility] Comment on above: Performed By: #### 2 [id number] #### [facility] [address] [place] [address] MCV (RBC) [Entitic vol] 86.8 fL Normal 80.0-100.0 [facility] Comment on above: Performed By: #### 2 [id number] #### [facility] [address] [place] [address] Microcytes Ql (Bld) PRESENT Invalid Interpretation Code [facility] Comment on above: Performed By: #### 2 [id number] #### [facility] [address] [place] [address] Monocytes (Bld) [#/Vol] 0.9 E9/L Normal 0.2-1.0 [facility] Comment on above: Performed By: #### 2 [id number] #### [facility] [address] [place] [address] Neutrophils (Bld) [#/Vol] 10.0 E9/L High 2.0-7.5 [facility] Comment on above: Performed By: #### 2 [id number] #### [facility] [address] [place] [address] Neutrophils/100 WBC (Bld) 82.6 % High 36.0-75.0 [facility] Comment on above: Performed By: #### 2 [id number] #### [facility] [address] [place] [address] Platelet mean volume (Bld) [Entitic vol] 7.1 fL Normal 6.4-10.8 [facility] Comment on above: Performed By: #### 2 [id number] #### [facility] [address] [place] [address] Platelets (Bld) [#/Vol] 946.0 E9/L High 150.0-500.0 [facility] Comment on above: Performed By: #### 2 [id number] #### [facility] [address] [place] [address] RBC (Bld) [#/Vol] 3.8 E12/L Low 4.3-5.9 [facility] Comment on above: Performed By: #### 2 [id number] #### [facility] [address] [place] [address] RBC size Nom (Bld) SEE MORPHOLOGY Invalid Interpretation Code [facility] Comment on above: Performed By: #### 2 [id number] #### [facility] [address] [place] [address] WBC corrected for nucl RBC Auto (Bld) [#/Vol] 12.0 E9/L High 4.0-11.0 [facility] Comment on above: Performed By: #### 2 [id number] #### [facility] [address] [place] [address] CHEMISTRYOrdered By: SYSTEM SYSTEM on 11-14-2024 Albumin [Mass/Vol] 1.5 g/dL Low 3.3 - 5.0 gm/dL [facility] Albumin/Globulin [Mass ratio] 0.5 {ratio} Low 1.1 - 2.2 [facility] ALP [Catalytic activity/Vol] 103 [iU]/d High 21 - 98 Int._Unit/L [facility] ALT No additional P-5'-P [Catalytic activity/Vol] 8 [iU]/d Normal 6 - 46 Int._Unit/L [facility] Anion gap [Moles/Vol] 7 mmol/L Normal 6 - 16 mEq/L R [facility] AST [Catalytic activity/Vol] 9 [iU]/d Normal 5 - 43 Int._Unit/L [facility] Bilirubin [Mass/Vol] 0.2 mg/dL Normal 0.0 - 1 .1 mg/dL [facility] Bilirubin.direct [Mass/Vol] 0.1 mg/dL Normal 0.0 - 0.4 mg/dL [facility] Bilirubin.indirect [Mass or moles/Vol] 0.1 mg/dL Normal 0.1 - 0.9 mg/dL [facility] Calcium [Mass/Vol] 6.0 mg/dL Invalid Interpretation Code 8.9 - 11.1 mg/dL [facility] Comment on above: Result Comment: Crit ical Result Verified by Repeat Analysis Critical Result S_CA.0 Called to and read back by: SHIRLEY MASON at: 11/14/2024 20:13:52 by:[email or web address] Chloride [Moles/Vol] 104 mmol/L Normal 101 - 1 11 mmol/L [facility] CO2 [Moles/Vol] 29 mmol/L Normal 21 - 31 mmol/L [facility] Creatinine [Mass/Vol] 0.5 mg/dL Normal 0.5 - 1.3 mg/dL [facility] eGFR 130 mL/min/1.73 m2 Normal >=59mL/mi n/1.7 3 m2 [facility] Globulin (S) [Mass/Vol] 2.8 g/dL Normal 1.4 - 4.0 gm/dL [facility] Glucose [Mass/Vol] 90 mg/dL Normal 55 - 199 mg/dL Re misol Chem Lipase [Catalytic activity/Vol] 12 U/L Low 13 - 58 unit/L [facility] Potassium [Moles/Vol] 3.8 mmol/L Normal 3.5 - 5.3 mmol/L [facility] Protein [Mass/Vol] 4.3 g/dL Low 6.0 - 7.8 gm/dL [facility] Sodium [Moles/Vol] 136 mmol/L Normal 135 - 145 mmol/L [facility] Urea nitrogen [Mass/Vol] 9 mg/dL Normal 5 - 21 mg/dL [facility] Urea nitrogen/Creatinine [Mass ratio] 18 mg/mg Normal 10 - 20 [facility] Troponin HS 4.40 pg/mL Low 10.10 - 27.10 pg/mL [facility] Comment on above: Interpretive Data: T he 95% CI (Confidence Interval) PPV (Positive Predictive Value) for myocardial infarction in females is 38 pg/mL, in males 51 pg/mL. The results should be used in conjunction with clinical conditions of myocardial infarction. (Access High Sensitivity Troponin I Instructions For Use, Jannette Titi, April 2018) ED Clinical Summaryon 2024 ED Clinical Summary ED Clinical Summary [address] [address] ED Clinical Summary Person Information Name: ROLA AGUILAR [place] Age: 29 Years : 1995 Sex: Female Language: Honduran PCP: NONE, XXXX Marital Status: Single Phone: Visit Id: Visit Reason: Tachycardia; Diarrhea; Abdominal pain; BAD PAIN, SYNCOPE Speciality: Acuity: 2 Enc Type: Emergency Med Service: Emergency Arrival: 11/14/2024 17:30:31 Discharge: 11/14/2024 23:29:28 LOS: 000 05:59 Checkin: 11/14/2024 17:30:31 Checkout: 11/14/2024 23:29:28 Dispo Type: Home (Routine DC) EVENTS: Event Name Event Status Request Date/Time Start Date/Time Complete Date/Time Arrive Complete 11/14/2024 17:30:31 11/14/2024 17:30:31 11/14/2024 17:30:31 Document Home Meds Request 11/14/2024 17:30:31 Triage Complete 11/14/2024 17:30:31 11/14/2024 17:36:11 11/14/2024 17:36:11 Bed Assign Complete 11/14/2024 17:31:59 11/14/2024 17:31:59 11/14/2024 17:31:59 Dr Exam Complete 11/14/2024 17:31:59 11/14/2024 17:34:25 11/14/2024 17:34:25 RN Exam Complete 11/14/2024 17:31:59 11/14/2024 18:06:27 11/14/2024 18:06:27 Registration Complete 11/14/2024 17:34:25 11/14/2024 17:37:44 11/14/2024 17:37:44 Dr Exam Complete 11/14/2024 17:34:40 11/14/2024 17:34:40 11/14/2024 17:34:40 EKG Complete 11/14/2024 17:36:02 11/14/2024 17:49:54 Reg Complete Request 11/14/2024 17:37:44 Reg Bed Request Complete 11/14/2024 17:37:44 11/14/2024 17:37:44 11/14/2024 17:37:44 CT Complete 11/14/2024 18:02:12 11/14/2024 18:55:40 11/14/2024 19:19:17 Meds Admin Complete 11/14/2024 18:02:12 11/14/2024 18:16:31 Pending Labs Request 11/14/2024 18:02:12 Lab Complete 11/14/2024 18:02:12 11/14/2024 20:13:59 X-Ray Complete 11/14/2024 18:02:12 11/14/2024 18:04:46 11/14/2024 18:20:04 Wet Read Request 11/14/2024 18:20:04 Pending Labs Complete 11/14/2024 18:27:04 11/14/2024 18:27:04 11/14/2024 20:13:59 Lab Complete 11/14/2024 18:27:04 11/14/2024 18:27:04 11/14/2024 20:13:59 Meds Admin Complete 11/14/2024 19:05:19 11/14/2024 19:31:54 Meds Admin Complete 11/14/2024 19:33:21 11/14/2024 21:44:12 Meds Admin Complete 11/14/2024 20:09:31 11/14/2024 20:57:05 Meds Admin Complete 11/14/2024 21:06:06 11/14/2024 21:39:58 Meds Admin Complete 11/14/2024 21:22:03 11/14/2024 21:39:59 Meds Admin Complete 11/14/2024 21:56:58 11/14/2024 22:15:24 Possible Sepsis Request 11/14/2024 22:00:53 Meds Admin Complete 11/14/2024 22:45:57 11/14/2024 23:16:13 Discharge Complete 11/14/2024 22:48:55 11/14/2024 23:31:36 11/14/2024 23:31:36 Transfer Complete 11/14/2024 23:31:36 11/14/2024 23:31:36 11/14/2024 23:31:36 ADDRESS: [address] [phone] PHYS DOC NOTES: MEDICAL INFORMATION: Prescriptions Given: New Medications [facility]/pharmacy #[id number], [address] [place], [place] [id number], [phone] lorazepam (Ativan 0.5 mg Tab) 1 Tablets By Mouth 3 times a day as needed for anxiety for 3 Days. Refills: 0. Medications to Continue Taking That Have Changed [facility]/pharmacy #[id number], [address] [place], [place] [id number], [phone] START: acetaminophen-oxycodo ne (acetaminophen-oxycod one 325 mg-5 mg Tab) 1 Tablets By Mouth every 6 hours as needed for pain for 2 Days. Refills: 0. START: dicyclomine (Bentyl 10 mg Cap) 1 Capsules By Mouth 4 times a day for 7 Days. Refills: 0. START: ondansetron (Zofran ODT 4 mg Tab-Dis) 1 Tablets By Mouth every 8 hours as needed Nausea/Vomiting. Refills: 0. START: predniSONE (predniSONE 50 mg Tab) 1 Tablets By Mouth every day for 7 Days. Refills: 0. Other Medications START: acetaminophen-oxycodo ne (Percocet 5 mg-325 mg oral tablet) 1 Tablets By Mouth every 6 hours as needed as needed for pain. Refills: 0. START: dicyclomine (Bentyl 10 mg Cap) 2 Capsules By Mouth 4 times a day. Refills: 0. START: ondansetron (ondansetron 4 mg Dis Tab) 1 Tablets By Mouth every 6 hours. Refills: 0. START: ondansetron (Zofran 4 mg [...] maintenance 20 mg of prednisone.. Refills: 0. START: predniSONE (predniSONE 10 mg Tab) 1 Dose Separtor By Mouth As Directed. Take 5 tabs by mouth daily x5 days, 4 daily x5 days, 3 (more content not included)... Normal [facility] ED Patient Summaryon 025 ED Patient Summary ED Patient Summary [place] [address] Patient Discharge Instructions Person Information Name: ROLA AGUILAR Age: 29 Years Arrival Date: 11/14/2024 17:30:31 Discharge Diagnosis: Crohn disease; Pain in abdomen on palpation Primary Care Physician: NONE, XXXX Provider Information Primary Provider: Harry Devine DO Advanced Implementation Lead:Wil Chandler PA-C. The exam and treatment you received in the Emergency Department were for an urgent problem and are not intended as complete care. It is important that you follow up with a doctor, nurse practitioner, or physician???s back office medical assistant for ongoing care. If your symptoms become worse or you do not improve as expected and you are unable to reach your usual health care provider, you should return to the Emergency Department. We are available 24 hours a day. ROLA AGUILAR has been given the following list of patient education materials, prescriptions and follow-up instructions: Follow-up Instructions: With: Address: When: [address], [address] [place] [phone] Roll20 (1) In 3 days 11/17/2024 Comments: Call Dr for diagnosis based follow up In the event that this physician does not participate in your insurance network, please consult with your insurance company to find a nearby participating provider. Patient Education Materials: Abdominal Pain, Adult, Kzkf-py-Asxt; Crohn's Disease A MESSAGE TO ALL PATIENTS REGARDING OPIOIDS PRESCRIPTION OPIOIDS: WHAT YOU NEED TO KNOW Prescription opioids can be used to help relieve lelqjxpk-je-kduwuc pain and are often prescribed following a [...] guidance from the Food and Drug Administration (www.fda.gov/Drugs/Re sourcesForYou). ??? Visit www.cdc.gov/drugoverd ose to learn about the risks of opioids abuse and ove (more content not included)... Normal [facility] HEMATOLOGYOrdered By: SYSTEM SYSTEM on 11-14-2024 Basophils/100 WBC (Bld) 0.1 % Normal 0.0 - 2.0 % Remisol Heme Basophils/Leukocytes Auto (Bld) [Pure # fraction] 0.0 E9/L Normal 0.0 - 0.2 E9/L Remisol Heme Eosinophils (Bld) [#/Vol] 0.1 E9/L Normal 0.0 - 0.5 E9/L Remisol Heme Eosinophils/100 WBC (Bld) 0.5 % Normal 0.0 - 8.0 % Remisol Heme Erythrocyte distribution width (RBC) [Ratio] 18.5 % High 10.9 - 14.2 % Remisol Heme Hematocrit (Bld) [Volume fraction] 32.9 % Low 34.0 - 46.0 % Remisol Heme Hemoglobin (Bld) [Mass/Vol] 10.9 g/dL Low 12.0 - 16.0 gm/dL Remisol Heme Lymphocytes (Bld) [#/Vol] 1.1 E9/L Normal 1.0 - 4.0 E9/L Remisol Heme Lymphocytes/100 WBC (Bld) 9.4 % Low 14.0 - 50.0 % Remisol Heme MCH (RBC) [Entitic mass] 28.7 pg Normal 27.0 - 34.0 pg Remisol Heme MCHC (RBC) [Mass/Vol] 33.0 g/dL Normal 31.4 - 36.0 gm/dL Remisol Heme MCV (RBC) [Entitic vol] 86.8 fL Normal 80.0 - 100.0 fL Remisol Heme Microcytes Ql (Bld) PRESENT *NA* (11/14/24 6:13 PM) Invalid Interpretation Code Remisol Heme Monocytes (Bld) [#/Vol] 0.9 E9/L Normal 0.2 - 1.0 E9/L Remisol Heme Monocytes/100 WBC (Bld) 7.4 % Normal 4.0 - 14.0 % Remisol Heme Neutrophils (Bld) [#/Vol] 10.0 E9/L High 2.0 - 7.5 E9/L Remisol Heme Neutrophils/100 WBC (Bld) 82.6 % High 36.0 - 75.0 % Remisol Heme Platelet mean volume (Bld) [Entitic vol] 7.1 fL Normal 6.4 - 10.8 fL Remisol Heme Platelets (Bld) [#/Vol] 946.0 E9/L High 150.0 - 500.0 E9/L Remisol Heme RBC (Bld) [#/Vol] 3.8 E12/L Low 4.3 - 5.9 E12/L Remisol Heme RBC size Nom (Bld) SEE MORPHOLOGY *NA* (11/14/24 6:13 PM) Invalid Interpretation Code Remisol Heme WBC corrected for nucl RBC Auto (Bld) [#/Vol] 12.0 E9/L High 4.0 - 11.0 E9/L Remisol Heme Hep Func Panelon 11-14-2024 Albumin [Mass/Vol] 1.5 g/dL Low 3.3-5.0 [facility] Comment on above: Performed By: #### 2 [id number] #### [facility] [address] [place] [address] Albumin/Globulin (S) [Mass conc ratio] 0.5 Low 1.1-2.2 [facility] Comment on above: Performed By: #### 2 [id number] #### [facility] [address] [place] [address] ALP [Catalytic activity/Vol] 103 Int._Unit/L High 21-98 [facility] Comment on above: Performed By: #### 2 [id number] #### [facility] [address] [place] [address] ALT No additional P-5'-P [Catalytic activity/Vol] 8 Int._Unit/L Normal 6-46 [facility] Comment on above: Performed By: #### 2 [id number] #### [facility] [address] [place] [address] AST [Catalytic activity/Vol] 9 Int._Unit/L Normal 5-43 [facility] Comment on above: Performed By: #### 2 [id number] #### [facility] [address] [place] [address] Bilirubin [Mass/Vol] 0.2 mg/dL Normal 0.0-1.[address] [facility] Comment on above: Performed By: #### 2 [id number] #### [facility] [address] [place] [address] Bilirubin.direct [Mass/Vol] 0.1 mg/dL Normal 0.0-0.4 [facility] Comment on above: Performed By: #### 2 [id number] #### [facility] [address] [place] [address] Bilirubin.indirect [Mass or moles/Vol] 0.1 mg/dL Normal 0.1-0.9 [facility] Comment on above: Performed By: #### 2 [id number] #### [facility] [address] [place] [address] Globulin (S) [Mass/Vol] 2.8 g/dL Normal 1.4-4.0 [facility] Comment on above: Performed By: #### 2 [id number] #### [facility] [address] [place] [address] Protein [Mass/Vol] 4.3 g/dL Low 6.0-7.8 [facility] Comment on above: Performed By: #### 2 285287 #### [facility] [address] [place] [address] Lipase Levelon 11-14-2024 Lipase [Catalytic activity/Vol] 12 U/L Low 13-58 [facility] Comment on above: Performed By: #### 2 097793 #### [facility] [address] [place] [address] Troponin 0 Hr.on 11-14-2024 Troponin HS 4.40 pg/mL Low 10.10-27.10 [facility] Comment on above: Result Comment: The 95% CI (Confidence Interval) PPV (Positive Predictive Value) for myocardial infarction in females is 38 pg/mL, in males 51 pg/mL. The results should be used in conjunction with clinical conditions of myocardial infarction. (Access High Sensitivity Troponin I Instructions For Use, Jannette Titi, April 2018) Performed By: #### 1 [id number] #### [facility] [address] [place] [address] eGFRon 11-14-2024 eGFR 130 mL/min/1.73 m2 Normal >=59 [facility] Comment on above: Performed By: #### 1 [id number] #### [facility] [address] [place] [address] ED Note-Physicianon 10-05-19 25 ED Note-Physician ED Note-Physician Basic Information Time [...] complications) Diarrh (more content not included)... Normal [facility] Comment on above: Result Comment: Elec tronically Signed By: Gadiel Vega PA-C\.br\Date and Time Signed: 10/02/24 17:44 EST\.br\Electronically Co-Signed By: Harry Devine DO\.br\Date and Time Co-Signed: 10/05/24 08:10 EST B hCG Qualon 10-02-2024 Beta HCG ( test) Ql Negative Normal [facility] Comment on above: Performed By: #### 2 [id number] #### [facility] [address] [place] [address] BMPon 10-02-2024 Anion gap [Moles/Vol] 16 mmol/L Normal 6-16 [facility] Comment on above: Performed By: #### 2 [id number] #### [facility] [address] [place] [address] Calcium [Mass/Vol] 8.1 mg/dL Low 8.9-11.1 [facility] Comment on above: Performed By: #### 2 939340 #### [facility] [address] [place] [address] Chloride [Moles/Vol] 90 mmol/L Low 101-[address] [facility] Comment on above: Performed By: #### 2 784386 #### [facility] [address] [place] [address] CO2 [Moles/Vol] 29 mmol/L Normal 21-31 [facility] Comment on above: Performed By: #### 2 [id number] #### [facility] [address] [place] [address] Creatinine [Mass/Vol] 0.7 mg/dL Normal 0.5-1.3 [facility] Comment on above: Performed By: #### 2 093486 #### [facility] [address] [place] [address] Glucose [Mass/Vol] 93 mg/dL Normal 55-199 [facility] Comment on above: Performed By: #### 2 682336 #### [facility] [address] [place] [address] Potassium [Moles/Vol] 3.5 mmol/L Normal 3.5-5.3 [facility] Comment on above: Performed By: #### 2 380793 #### [facility] [address] [place] [address] Sodium [Moles/Vol] 131 mmol/L Low 135-145 [facility] Comment on above: Performed By: #### 2 643836 #### [facility] [address] [place] [address] Urea nitrogen [Mass/Vol] 8 mg/dL Normal 5-21 [facility] Comment on above: Performed By: #### 2 635985 #### [facility] [address] [place] [address] Urea nitrogen/Creatinine [Mass ratio] 11 No Units Normal 10-20 [facility] Comment on above: Performed By: #### 2 717203 #### [facility] [address] [place] [address] CBC w/ Auto Diffon 5 Basophils/100 WBC (Bld) 0.2 % Normal 0.0-2.0 [facility] Comment on above: Performed By: #### 2 503084 #### [facility] [address] [place] [address] Basophils/Leukocytes Auto (Bld) [Pure # fraction] 0.0 E9/L Normal 0.0-0.2 [facility] Comment on above: Performed By: #### 2 748622 #### [facility] [address] [place] [address] Eosinophils (Bld) [#/Vol] 0.0 E9/L Normal 0.0-0.5 [facility] Comment on above: Performed By: #### 2 830509 #### [facility] [address] [place] [address] Eosinophils/100 WBC (Bld) 0.3 % Normal 0.0-8.0 [facility] Comment on above: Performed By: #### 2 527020 #### [facility] [address] [place] [address] Erythrocyte distribution width (RBC) [Ratio] 16.0 % High 10.9-14.2 [facility] Comment on above: Performed By: #### 2 448486 #### [facility] [address] [place] [address] Hematocrit (Bld) [Volume fraction] 39.5 % Normal 34.0-46.0 [facility] Comment on above: Performed By: #### 2 883792 #### [facility] [address] [place] [address] Hemoglobin (Bld) [Mass/Vol] 13.8 g/dL Normal 12.0-16.0 [facility] Comment on above: Performed By: #### 2 505323 #### [facility] [address] [place] [address] Lymphocytes (Bld) [#/Vol] 2.5 E9/L Normal 1.0-4.0 [facility] Comment on above: Performed By: #### 2 710207 #### [facility] [address] [place] [address] Lymphocytes/100 WBC (Bld) 19.4 % Normal 14.0-50.0 [facility] Comment on above: Performed By: #### 2 063186 #### [facility] [address] [place] [address] MCH (RBC) [Entitic mass] 28.7 pg Normal 27.0-34.0 [facility] Comment on above: Performed By: #### 2 847179 #### [facility] [address] [place] [address] MCHC (RBC) [Mass/Vol] 34.9 g/dL Normal 31.4-36.0 [facility] Comment on above: Performed By: #### 2 972224 #### [facility] [address] [place] [address] MCV (RBC) [Entitic vol] 82.0 fL Normal 80.0-100.0 [facility] Comment on above: Performed By: #### 2 962038 #### [facility] [address] [place] [address] Monocytes (Bld) [#/Vol] 1.0 E9/L Normal 0.2-1.0 [facility] Comment on above: Performed By: #### 2 086958 #### [facility] [address] [place] [address] Neutrophils (Bld) [#/Vol] 9.4 E9/L High 2.0-7.5 [facility] Comment on above: Performed By: #### 2 873972 #### [facility] [address] [place] [address] Neutrophils/100 WBC (Bld) 72.3 % Normal 36.0-75.0 [facility] Comment on above: Performed By: #### 2 277309 #### [facility] [address] [place] [address] Platelet 825.0 E9/L High 150.0-500.0 [facility] Comment on above: Result Comment: Cele pheral smear review performed. Performed By: #### 2 598202 #### [facility] [address] [place] [address] Platelet mean volume (Bld) [Entitic vol] 6.7 fL Normal 6.4-10.8 [facility] Comment on above: Performed By: #### 2 040793 #### [facility] [address] [place] [address] RBC (Bld) [#/Vol] 4.8 E12/L Normal 4.3-5.9 [facility] Comment on above: Performed By: #### 2 533759 #### [facility] [address] [place] [address] WBC corrected for nucl RBC Auto (Bld) [#/Vol] 13.0 E9/L High 4.0-11.0 [facility] Comment on above: Performed By: #### 2 [id number] #### [facility] [address] [place] [address] CHEMISTRYOrdered By: SYSTEM SYSTEM on 10-02-2024 Albumin [...] 16 mmol/L Normal 6 - 16 mEq/L R emisol Chem AST [Catalytic activity/Vol] 26 [iU]/d Normal [...] High Sensitivity Troponin I Instructions For Use, [employer], April 2018) Urea nitrogen [Mass/Vol] 8 mg/dL [...] High Sensitivity Troponin I Instructions For Use, [employer], April 2018) CT Abdomen/Pelvis w/ Contras ton [...] Dominic Pyle MD Transcribed by: CLARICE Technologist: KULDEEP Technical Comments GFR (mL/min/1/73m2) age Contrast: Isovue 300 Technical Comments Contrast amount in ml's: 100 Normal [facility] ED Clinical Summaryon 2024 ED Clinical Summary ED Clinical Summary [place] [id number] ED Clinical Summary Person Information Name: ROLA AGUILAR Elena/[facility] Age: 29 Years : 1995 Sex: Female Language: Honduran PCP: NONE, XXXX Marital Status: Single Phone: [...] 10/02/2024 17:50:10 10/02/2024 17:50:10 10/02/2024 17:50:10 ADDRESS: [address] [place] [phone] PHYS DOC NOTES: MEDICAL INFORMATION: Prescriptions Given: Medications to Continue Taking That Have Changed [facility]/pharmacy #[id number], [address] [place], [place] [id number], [phone] START: ondansetron (ondansetron 4 mg Dis Tab) [...] to Continue with No Changes Other Medications acetaminophen-oxycodo ne (Percocet 5 mg-325 mg oral tablet) 1 [...] tablets a (more content not included)... Normal [facility] ED Patient Summaryon 025 ED Patient Summary ED Patient Summary [address] [address] Patient Discharge Instructions Person Information Name: ROLA AGUILAR Age: 29 Years Arrival Date: 10/02/2024 13:52:15 Discharge Diagnosis: Crohn's disease; Diarrhea; Nausea & vomiting Primary Care Physician: NONE, XXXX Provider Information Primary Provider: Harry Devine DO Advanced Implementation Lead:Gadiel Vega PA-C The exam and treatment you received in the Emergency Department were for an urgent problem and are not intended as complete care. It is important that you follow up with a doctor, nurse practitioner, or physician???s back office medical assistant for ongoing care. If your symptoms become worse or you do not improve as expected and you are unable to reach your usual health care provider, you should return to the Emergency Department. We are available 24 hours a day. ROLA AGUILAR has been given the following list of patient education materials, prescriptions and follow-up instructions: Follow-up Instructions: With: Address: When: Gumaro Acevedo [address] [place], [place] [phone] Business (1) In 3 days 10/05/2024 In the event that this physician does not participate in your insurance network, please consult with your insurance company to find a nearby participating provider. Patient Education Materials: Abdominal Pain, Adult; Crohn's Disease A MESSAGE TO ALL PATIENTS REGARDING OPIOIDS PRESCRIPTION OPIOIDS: WHAT YOU NEED TO KNOW Prescription opioids can be used to help relieve fevuwabi-kw-fagdmm pain and are often prescribed following a [...] guidance from the Food and Drug Administration (www.fda.gov/Drugs/Re sourcesForYou). ??? Visit www.cdc.gov/drugoverd ose to learn about the risks of opioids abuse and overdose. ??? If you believe you may be struggling with addiction, tell your h (more content not included)... Normal [facility] EMS Documentationon 10-02-19 25 EMS Documentation Report Please click on link to see report Normal [facility] Comment on above: Result Comment: Miss ing Attachment - total size limit for all attachments exceeded [id number] Can be viewed in source system [employer] 10-02-2024 WB Tube Collected Yes Invalid Interpretation Code [facility] Comment on above: Performed By: #### 1 [id number] #### [facility] [address] [place] [address] HEMATOLOGYOrdered By: SYSTEM SYSTEM on 10-02-2024 Basophils/100 [...] 10-02-2024 Albumin [Mass/Vol] 2.5 g/dL Low 3.3-5.0 [facility] Comment on above: Performed By: #### 2 [id number] #### [facility] [address] [place] [address] Albumin/Globulin (S) [Mass conc ratio] 0.6 Low 1.1-2.2 [facility] Comment on above: Performed By: #### 2 999000 #### [facility] [address] [place] [address] ALP [Catalytic activity/Vol] 185 Int._Unit/L High 21-98 [facility] Comment on above: Performed By: #### 2 012452 #### [facility] [address] [place] [address] ALT No additional P-5'-P [Catalytic activity/Vol] 16 Int._Unit/L Normal 6-46 [facility] Comment on above: Performed By: #### 2 801462 #### [facility] [address] [place] [address] AST [Catalytic activity/Vol] 26 Int._Unit/L Normal 5-43 [facility] Comment on above: Performed By: #### 2 926135 #### [facility] [address] [place] [address] Bilirubin [Mass/Vol] 0.6 mg/dL Normal 0.0-1.[address] [facility] Comment on above: Performed By: #### 2 106925 #### [facility] [address] [place] [address] Bilirubin.direct [Mass/Vol] 0.1 mg/dL Normal 0.0-0.4 [facility] Comment on above: Performed By: #### 2 498254 #### [facility] [address] [place] [address] Bilirubin.indirect [Mass or moles/Vol] 0.5 mg/dL Normal 0.1-0.9 [facility] Comment on above: Performed By: #### 2 794330 #### [facility] [address] [place] [address] Globulin (S) [Mass/Vol] 4.4 g/dL High 1.4-4.0 [facility] Comment on above: Performed By: #### 2 305209 #### [facility] [address] [place] [address] Protein [Mass/Vol] 6.9 g/dL Normal 6.0-7.8 [facility] Comment on above: Performed By: #### 2 591126 #### [facility] [address] [place] [address] Lipase Levelon 10-02-2024 Lipase [Catalytic activity/Vol] 9 U/L Low 13-58 [facility] Comment on above: Performed By: #### 2 111778 #### [facility] [address] [place] [address] Pre-Arrival Noteon Pre-Arrival Note Pre-Arrival Note Pre-Arrival Summary Name: maria e Current Date: 10/02/2024 13:53:11 EST Gender: Female Date of : Age: 29 Pre-Arrival Type: EMS ETA: 10/02/2024 14:16:00 EST Primary Care Physician: Presenting Problem: abd pain Pre-Arrival User: Katie Yates RN Referring Source: Location: [place] Completion Date/Time: 10/02/2024 13:46:00 [facility] Emergency Department Pre-Hospital Report Form Vital Signs: Pre-Hospital Report: abd pain, GI bleed, n/v for 3 days. tachy at 147s, glucose 119. 4 mg PO ZO Treatment in Route: Response to Treatment: Misc. Issues: Normal [facility] SEROLOGYOrdered By: Sherrell Mason on 10-02-2024 Beta HCG ( test) Ql Negative (10/02/24 2:31 PM) Normal [facility] Man Sero Troponin 0 Hr.on 10-02-2024 Troponin HS 25.00 pg/mL Normal 10.10-27.10 [facility] Comment on above: Result Comment: The 95% CI (Confidence Interval) PPV (Positive Predictive Value) for myocardial infarction in females is 38 pg/mL, in males 51 pg/mL. The results should be used in conjunction with clinical conditions of myocardial infarction. (Access High Sensitivity Troponin I Instructions For Use, Jannette Titi, April 2018) Performed By: #### 1 [id number] #### [facility] [address] [place] [address] Troponin 1 Hr.on 10-02-2024 Troponin HS 7.10 pg/mL Low 10.10-27.10 [facility] Comment on above: Order Comment: 1508 Result Comment: The 95% CI (Confidence Interval) PPV (Positive Predictive Value) for myocardial infarction in females is 38 pg/mL, in males 51 pg/mL. The results should be used in conjunction with clinical conditions of myocardial infarction. (Access High Sensitivity Troponin I Instructions For Use, Jannette Savannah, April 2018) Performed By: #### 1 [id number] #### [facility] [address] [place] [address] eGFRon 10-02-2024 eGFR 120 mL/min/1.73 m2 Normal >=59 [facility] Comment on above: Performed By: #### 1 [id number] #### [facility] [address] [place] [address] CNPNon 08-12-2024 CNPN Telephone ([facility]) ROLA AGUILRA ([id number]) 1995 F Date Time Provider Department 08/12/24 LEE ANN HUMPHRIES [facility] During your visit today, we recorded the following information about you: Heather Leary RN 08/12/2024 2:49 PM Signed Attempted to call patient. Left detailed VM for patient to call [facility] at [phone] SHAHBAZ Rosado Rebecca, [facility] Lee Ann Humphries DO; Heather Leary RN Noted, thank you! I'll keep trying to reach her. Amina ----- Message ----- From: Lee Ann Humphries DO Sent: 08/12/2024 11:25 AM EST To: Heather Leary RN; Zaira Campbell, [facility] Yes, she should still continue her Entyvio after surgery. I will have our office try to reach out to her as well. Thank you for the update. Lee Ann Humphries DO ----- Message ----- From: Zaira Campbell, [facility] Sent: 08/12/2024 11:19 AM EST To: DO Christelle Guillaume Dr[address] [facility] has been unable to reach patient to set up Entyvio refill shipment after several attempts. Is she continuing Entyvio at this time? I see that she had surgery a few weeks ago. Brinda, Amina Allergies As of Date: 08/12/2024 Noted Allergy Reaction HYDROMORPHONE 05/26/2023 9 - Itching Date Reviewed: 07/20/2024 Reviewed by: Rosalba Petersen, RN - Fully Assessed Prescriptions as of 08/12/2024 [...] 07/27/2023 08/01/2023 General counseling and advice for contraceptive* 023 10/24/2023 Abdominal pain [R10.9] 08/19/2023 10/27/2023 Crohn's [...] Encounter Status:Closed by HEATHER LEARY on 08/12/24 Normal [facility] ANES POSTPROC EVALon 024 ANES POSTPROC EVAL HNO ID: [id number] Author: RADHA ARNOLD MD Service: Anesthesiology Author [...] July 20, 2024 TIME: 2:07 PM CSN: [id number] [facility] ANES PRE-OPon 07-20-2024 ANES PRE-OP HNO ID: [id number] Author: RADHA ARNOLD MD Service: Anesthesiology Author [...] and consent discussed: yes. Patient / Responsible Democrat agrees to proceed: yes Patient / Surrogate [...] July 20, 2024 TIME: 11:04 AM CSN: [id number] Normal [facility] B-HCG SerPl-aCncon 4 HCG.beta subunit Qn m[IU]/mL Normal <5.0 [facility] Comment on above: Order Comment: Speci men Type: BLOOD SPECIMENOrdering Facility: [facility] Address: [address] [place] [address] Result Comment: Nega tive Performed By: #### 2 1198-7 ####[facility]ORY[facility] [id number] [place] [address] [place] Bacteria Wnd Culton 07-20-20 24 Bacteria identified Cx Nom (Wound) ORGANISM ID: 1 Rare Eikenella corrodens No further workup BLACT: Negative ORGANISM ID: 2 Few skin jaden GRAM STAIN: Few Gram positive cocci Few Gram negative bacilli Rare Gram positive bacilli Moderate Polymorphonuclear leukocytes Abnormal [facility] Comment on above: Performed By: #### 6 462-6 ####[facility] LABCLIA [id number] [place] [address] [place] HISTORY PHYSICALon HISTORY PHYSICAL HNO ID: [id number] Author: SHAQ THAKKAR MD Service: Colorectal Author [...] tingling. PSYCH: Denies any anxiety or depression. HEME/LYMPHATIC/IMMUNO : Denies anemia, bruising, bleeding abnormalities. ENDO: Denies [...] for EUA, possi (more content not included)... [facility] NURSING PROGon 07-20-2024 NURSING PROG HNO ID: [id number] Author: FRANCISCO BENAVIDEZ RN Service: Nursing Author [...] (RECOMMENDATION): None Electronically Signed By: Francisco Benavidez [facility] OPERATIVE NOon 07-20-2024 OPERATIVE NO HNO ID: [id number] Author: SHAQ THAKKAR MD Service: Colorectal Author Type: Physician Type: Operative Report Filed: 07/23/2024 08:03 Note Text: OPERATIVE/PROCEDURE REPORT LOG ID: [id number] SURGERY/PROCEDURE DATE: 07/20/2024 INCISION/PROCEDURE START TIME: 12:51 PM INCISION CLOSE/PROCEDURE END TIME: 1:10 PM SURGEON(S)/PROCEDURAL IST(S) AND POLE PEELER(S): Surgeons and Role: * Shaq Thakkar MD - Primary * Candelario Araya MD - Resident - Assisting No Additional Staff PRE-OP/PRE-PROCEDURE DIAGNOSIS: Crohn's Disease, Perianal Abscess AND Fistula POST-OP/POST-PROCEDUR E DIAGNOSIS: Same SURGERY/PROCEDURE(S): Anorectal exam under anesthesia Incision and drainage of perianal abscess Placement of ariana through fistula tract ANESTHESIA: General FINDINGS: - [...] the external opening of the fistula, a ariana was placed through the abscess cavity and [...] LOSS: 15 mls SPECIMENS: None IMPLANTABLE DEVICES: Ariana DRAINS: None COMPLICATIONS: None PARTICIPATION IN SURGERY/PROCEDURE: I/primary surgeon/proceduralist performed the procedure with assistance. On behalf of: Shaq Thakkar MD SIGNATURE: Candelario Araya MD PATIENT NAME: Rola Aguilar DATE: July 20, 2024 TIME: 1:51 PM Normal [facility] OPERATIVE NO HNO ID: [id number] Author: SHAQ THAKKAR MD Service: Colorectal Author Type: Physician Type: Operative Report Filed: 07/23/2024 08:01 Note Text: [facility] - Operative Report ROLA AGUILAR : 1995 AGE: 28. SEX: F PATIENT TYPE: A HOSP SVC: [facility] LOC[place] [facility] [place] ATTENDING PHYSICIAN: Shaq Thakkar M.D. CSN NUMBER: [id number] DATE OF SURGERY/PROCEDURE: 07/20/2024 INCISION/PROCEDURE START TIME: 12:51 PM INCISION CLOSE/PROCEDURE END TIME: 1:10 PM PREOPERATIVE DIAGNOSIS: Crohn disease, anorectal abscess. POSTOPERATIVE DIAGNOSIS: Crohn disease, anorectal abscess. SURGEON: Shaq Thakkar M.D. POLE PEELER: Deidra. SURGERY/PROCEDURE: Incision and drainage of the [...] site and we placed a quarter- inch Ariana between the 2 to facilitate additional drainage. [...] room in great condition. Shaq Thakkar M.D. BC:[id number] /[id number] [facility] Office Visit (COFHAM ) ROLA AGUILAR ([id number]) 1995 F Date Time Provider Department 07/17/24 10:15 AM SHAQ THAKKAR [facility] During your visit today, we recorded the following information about you: Blood pressure Weight 107/67 63.7 kg Shaq Thakkar MD 07/26/2024 7:16 PM Signed COLORECTAL SURGERY July 17, 2024 Rola Aguilar [...] exam Anorectal: External exam reveals: see below Child Adolescent Psychiatrist present: yes The sensitive examination was discussed with the Patient or Patient's Authorized Director Of Advertising Sales. As applicable, any other physician, advance practice provider, medical student, or other health professional student that will be observing or involved in the sensitive examination for educational or training purposes was discussed with the Patient or Authorized Director Of Advertising Sales. The Patient or Authorized Director Of Advertising Sales has agreed to proceed with the sensitive examination. (Sensitive examination includes inspection and/or palpation of the breasts, pelvis, prostate and anorectal regions) Assessment Assessment and Plan: Rola Aguilar is a 28 year old female with a pa (more content not included)... Normal [facility] CT Abdomen/Pelvis w/ Contras ton 07-14-2024 CT [...] Oral contrast amount in ml's: 0 Normal [facility] ED Note-Physicianon 07-14-20 ED Note-Physician ED Note-Physician [...] and Complexity of Problems Differential Diagnosis: [] [facility] Data External documents reviewed: [] My EKG [...] (K50.90: Crohn's disease, unspecified, without complications) Orders: acetaminophen-oxycodo ne, 1 EA, Tab, Oral, Once, Stop date 07/13/24 23:25:00 EDT, STAT, Start date 07/13/24 23:25:00 EDT dicyclomine, 60 mg = 3 tab(s), Tab, Oral, Once, Stop date 07/13/24 23:25:00 EDT, STAT, Start date 07/13/24 23:25:00 EDT, 07/13/24 23:25:00 EDT dicyclomine, 10 mg = 1 cap(s), Oral, QID, X 7 day(s), # 28 cap(s), Refills(s) 0, Pharmacy: [facility]/pharmacy #[id number], 167, cm, 07/13/24 18:32:00 EDT, Height/Length Dosing, [...] day(s), # 5 tab(s), Refills(s) 0, Pharmacy: [facility]/pharmacy #[id number], 167, cm, 07/13/24 18:32:00 EDT, Height/Length Dosing, 63.6, kg, 07/13/24 18:32:00 EDT, Weight Dosing Basic Metabolic Panel Beta hCG Qual CBC w/ Auto Diff CT Abdomen/Pelvis w/ Contrast eGFR Extra Blue Tube Extra SST Tube Hepatic Function Panel Lipase Level Saline Lock (more content not included)... Normal [facility] Comment on above: Result Comment: Elec tronically Signed By: Wil Chandler PA-C\.br\Date and Time Signed: 07/13/24 23:33 EDT\.br\Electronically Co-Signed By: Elliot Macias DO\.br\Date and Time Co-Signed: 07/14/24 06:48 EDT B hCG Qualon 07-13-2024 Beta HCG ( test) Ql Negative Normal [facility] Comment on above: Performed By: #### 2 [id number] #### [facility] [address] [place] [address] BMPon 07-13-2024 Anion gap [Moles/Vol] 11 mmol/L Normal 6-16 [facility] Comment on above: Performed By: #### 2 [id number] #### [facility] [address] [place] [address] Calcium [Mass/Vol] 8.3 mg/dL Low 8.9-11.1 [facility] Comment on above: Performed By: #### 2 [id number] #### [facility] [address] [place] [address] Chloride [Moles/Vol] 97 mmol/L Low 101-[address] [facility] Comment on above: Performed By: #### 2 242574 #### [facility] [address] [place] [address] CO2 [Moles/Vol] 31 mmol/L Normal 21-31 [facility] Comment on above: Performed By: #### 2 [id number] #### [facility] [address] [place] [address] Creatinine [Mass/Vol] 0.7 mg/dL Normal 0.5-1.3 [facility] Comment on above: Performed By: #### 2 605778 #### [facility] [address] [place] [address] Glucose [Mass/Vol] 92 mg/dL Normal 55-199 [facility] Comment on above: Performed By: #### 2 449118 #### [facility] [address] [place] [address] Potassium [Moles/Vol] 3.8 mmol/L Normal 3.5-5.3 [facility] Comment on above: Performed By: #### 2 889212 #### [facility] [address] [place] [address] Sodium [Moles/Vol] 135 mmol/L Normal 135-145 [facility] Comment on above: Performed By: #### 2 668086 #### [facility] [address] [place] [address] Urea nitrogen [Mass/Vol] 7 mg/dL Normal 5-21 [facility] Comment on above: Performed By: #### 2 466304 #### [facility] [address] [place] [address] Urea nitrogen/Creatinine [Mass ratio] 10 No Units Normal 10-20 [facility] Comment on above: Performed By: #### 2 760804 #### [facility] [address] [place] [address] CBC w/ Auto Diffon 07-13- 4 Basophils/100 WBC (Bld) 0.3 % Normal 0.0-2.0 [facility] Comment on above: Performed By: #### 2 [id number] #### [facility] [address] [place] [address] Basophils/Leukocytes Auto (Bld) [Pure # fraction] 0.0 E9/L Normal 0.0-0.2 [facility] Comment on above: Performed By: #### 2 598125 #### [facility] [address] [place] [address] Eosinophils (Bld) [#/Vol] 0.1 E9/L Normal 0.0-0.5 [facility] Comment on above: Performed By: #### 2 145968 #### [facility] [address] [place] [address] Eosinophils/100 WBC (Bld) 0.8 % Normal 0.0-8.0 [facility] Comment on above: Performed By: #### 2 004161 #### [facility] [address] [place] [address] Erythrocyte distribution width (RBC) [Ratio] 16.7 % High 10.9-14.2 [facility] Comment on above: Performed By: #### 2 100671 #### [facility] [address] [place] [address] Hematocrit (Bld) [Volume fraction] 38.4 % Normal 34.0-46.0 [facility] Comment on above: Performed By: #### 2 930009 #### [facility] [address] [place] [address] Hemoglobin (Bld) [Mass/Vol] 12.5 g/dL Normal 12.0-16.0 [facility] Comment on above: Performed By: #### 2 599769 #### [facility] [address] [place] [address] Lymphocytes (Bld) [#/Vol] 0.7 E9/L Low 1.0-4.0 [facility] Comment on above: Performed By: #### 2 192548 #### [facility] [address] [place] [address] Lymphocytes/100 WBC (Bld) 8.1 % Low 14.0-50.0 [facility] Comment on above: Performed By: #### 2 215027 #### [facility] [address] [place] [address] MCH (RBC) [Entitic mass] 27.2 pg Normal 27.0-34.0 [facility] Comment on above: Performed By: #### 2 758072 #### [facility] [address] [place] [address] MCHC (RBC) [Mass/Vol] 32.7 g/dL Normal 31.4-36.0 [facility] Comment on above: Performed By: #### 2 632784 #### [facility] [address] [place] [address] MCV (RBC) [Entitic vol] 83.1 fL Normal 80.0-100.0 [facility] Comment on above: Performed By: #### 2 082533 #### [facility] [address] [place] [address] Monocytes (Bld) [#/Vol] 0.7 E9/L Normal 0.2-1.0 [facility] Comment on above: Performed By: #### 2 920971 #### [facility] [address] [place] [address] Neutrophils (Bld) [#/Vol] 7.7 E9/L High 2.0-7.5 [facility] Comment on above: Performed By: #### 2 475011 #### [facility] [address] [place] [address] Neutrophils/100 WBC (Bld) 83.7 % High 36.0-75.0 [facility] Comment on above: Performed By: #### 2 772093 #### [facility] [address] [place] [address] Platelet mean volume (Bld) [Entitic vol] 7.0 fL Normal 6.4-10.8 [facility] Comment on above: Performed By: #### 2 127218 #### [facility] [address] [place] [address] Platelets (Bld) [#/Vol] 488.0 E9/L Normal 150.0-500.0 [facility] Comment on above: Performed By: #### 2 739602 #### [facility] [address] [place] [address] RBC (Bld) [#/Vol] 4.6 E12/L Normal 4.3-5.9 [facility] Comment on above: Performed By: #### 2 795155 #### [facility] [address] [place] [address] WBC corrected for nucl RBC Auto (Bld) [#/Vol] 9.2 E9/L Normal 4.0-11.0 [facility] Comment on above: Performed By: #### 2 157553 #### [facility] [address] [place] [address] CHEMISTRYOrdered By: Suellen Cadet on 07-13-2024 Albumin [...] 11 mmol/L Normal 6 - 16 mEq/L R emisol Chem AST [Catalytic activity/Vol] 23 [iU]/d Normal [...] 2023 ED Clinical Summary ED Clinical Summary [place] [id number] ED Clinical Summary Person Information Name: ROLA AGUILAR Elena/[facility] Age: 28 Years : 1995 Sex: Female Language: Honduran PCP: NONE, XXXX Marital Status: Single Phone: [phone] Visit Id: Visit Reason: Nausea; Vomiting; Abdominal [...] 07/13/2024 23:57:10 07/13/2024 23:57:10 07/13/2024 23:57:10 ADDRESS: [address] [place] [phone] PHYS DOC NOTES: MEDICAL INFORMATION: Prescriptions Given: Medications to Continue Taking That Have Changed [facility]/pharmacy #[id number], [address], [place] [id number], [phone] START: dicyclomine (Bentyl 10 mg Cap) 1 [...] to Continue with No Changes Other Medications acetaminophen-oxycodo ne (Percocet 5 mg-325 mg oral tablet) 1 [...] for nausea/vomiti (more content not included)... Normal [facility] ED Patient Summaryon 024 ED Patient Summary ED Patient Summary [address] [address] Patient Discharge Instructions Person Information Name: ROLA AGUILAR Age: 28 Years Arrival Date: 07/13/2024 18:22:47 Discharge Diagnosis: Abdominal pain; Crohn's disease Primary Care Physician: NONE, XXXX Provider Information Primary Provider: Elliot Macias DO Advanced Implementation Lead:None The exam and treatment you received in the Emergency Department were for an urgent problem and are not intended as complete care. It is important that you follow up with a doctor, nurse practitioner, or physician?s back office medical assistant for ongoing care. If your symptoms become worse or you do not improve as expected and you are unable to reach your usual health care provider, you should return to the Emergency Department. We are available 24 hours a day. LAURENROLA has been given the following list of patient education materials, prescriptions and follow-up instructions: Follow-up Instructions: With: Address: When: Ja Pérez [address] [place] [address], [address], [place] [phone] Business (1) In 3 days 07/16/2024 Comments: Call Dr for diagnosis based follow up In the event that this physician does not participate in your insurance network, please consult with your insurance company to find a nearby participating provider. Patient Education Materials: Crohn's Disease; Abdominal Pain, Adult, Kuiy-bg-Qxba A MESSAGE TO ALL PATIENTS REGARDING OPIOIDS PRESCRIPTION OPIOIDS: WHAT YOU NEED TO KNOW Prescription opioids can be used to help relieve wckqlivr-lb-nlfevl pain and are often prescribed following a [...] guidance from the Food and Drug Administration (www.fda.gov/Drugs/Re sourcesForYou). ? Visit www.cdc.gov/drugoverd ose to learn about the risks of opioids abuse and overdose. ? If you believe you may be struggling with addiction, tell your health ca (more content not included)... Normal [facility] Extra Blueon 07-13-2024 Tube Collected Plasma Yes Invalid Interpretation Code [facility] Comment on above: Performed By: #### 1 [id number] #### [facility] [address] [place] [address] HEMATOLOGYOrdered By: SYSTEM SYSTEM on 07-13-2024 Basophils/100 [...] 07-13-2024 Albumin [Mass/Vol] 2.7 g/dL Low 3.3-5.0 [facility] Comment on above: Performed By: #### 2 [id number] #### [facility] [address] [place] [address] Albumin/Globulin (S) [Mass conc ratio] 0.6 Low 1.1-2.2 [facility] Comment on above: Performed By: #### 2 270834 #### [facility] [address] [place] [address] ALP [Catalytic activity/Vol] 143 Int._Unit/L High 21-98 [facility] Comment on above: Performed By: #### 2 024160 #### [facility] [address] [place] [address] ALT No additional P-5'-P [Catalytic activity/Vol] 9 Int._Unit/L Normal 6-46 [facility] Comment on above: Performed By: #### 2 513199 #### [facility] [address] [place] [address] AST [Catalytic activity/Vol] 23 Int._Unit/L Normal 5-43 [facility] Comment on above: Performed By: #### 2 229712 #### [facility] [address] [place] [address] Bilirubin [Mass/Vol] 0.4 mg/dL Normal 0.0-1.[address] [facility] Comment on above: Performed By: #### 2 486525 #### [facility] [address] [place] [address] Bilirubin.direct [Mass/Vol] 0.1 mg/dL Normal 0.0-0.4 [facility] Comment on above: Performed By: #### 2 669892 #### [facility] [address] [place] [address] Bilirubin.indirect [Mass or moles/Vol] 0.3 mg/dL Normal 0.1-0.9 [facility] Comment on above: Performed By: #### 2 589759 #### [facility] [address] [place] [address] Globulin (S) [Mass/Vol] 4.5 g/dL High 1.4-4.0 [facility] Comment on above: Performed By: #### 2 017321 #### [facility] [address] [place] [address] Protein [Mass/Vol] 7.2 g/dL Normal 6.0-7.8 [facility] Comment on above: Performed By: #### 2 432525 #### [facility] [address] [place] [address] Lipase Levelon 07-13-2024 Lipase [Catalytic activity/Vol] 23 U/L Normal 13-58 [facility] Comment on above: Performed By: #### 2 895500 #### [facility] [address] [place] [address] SEROLOGYOrdered By: Sherrell Mason on 07-13-2024 Beta HCG ( test) Ql Negative (07/13/24 7:28 PM) Normal [facility] Man Sero eGFRon 07-13-2024 eGFR 120 mL/min/1.73 m2 Normal >=59 [facility] Comment on above: Performed By: #### 1 [id number] #### [facility] [address] [place] [address] ED Note-Physicianon 07-06-20 ED Note-Physician ED Note-Physician Basic Information Time Seen: Puneet Proctor PA-C 06/30/2024 11:33 Chief Complaint dizziness and near [...] She follows with colorectal surgery at the [facility]. She is being scheduled for management [...] made to ensure accuracy, however, inadvertently computerized sulfur chloride operator mistakes may be present. Appropriate healthcare PPE was used in evaluating this patient. Problem List/Past Medical History Ongoing Anxiety disorder due to medical condition Bipolar depression Crohn's disease Generalized anxiety disorder H/O psoriasis Mechanical deep vein thrombosis (DVT) prophylaxis in place Protein-calorie malnutrition, severe S/P ileostomy Sinus tachycardia Smoker Vitamin A deficiency Historical Fistula Panic at (more content not included)... Normal [facility] Comment on above: Result Comment: Elec tronically Signed By: Puneet Proctor PA-C\.br\Date and Time Signed: 06/30/24 15:15 EDT\.br\Electronically Co-Signed By: Harry Devine DO\.br\Date and Time Co-Signed: 07/06/24 07:37 EDT BMPon 06-30-2024 Anion gap [Moles/Vol] 13 mmol/L Normal 6-16 [facility] Comment on above: Performed By: #### 2 [id number] #### [facility] [address] [place] [address] Calcium [Mass/Vol] 8.0 mg/dL Low 8.9-11.1 [facility] Comment on above: Performed By: #### 2 011086 #### [facility] [address] [place] [address] Chloride [Moles/Vol] 98 mmol/L Low 101-[address] [facility] Comment on above: Performed By: #### 2 183527 #### [facility] [address] [place] [address] CO2 [Moles/Vol] 27 mmol/L Normal 21-31 [facility] Comment on above: Performed By: #### 2 730616 #### [facility] [address] [place] [address] Creatinine [Mass/Vol] 0.6 mg/dL Normal 0.5-1.3 [facility] Comment on above: Performed By: #### 2 556750 #### [facility] [address] [place] [address] Glucose [Mass/Vol] 100 mg/dL Normal 55-199 [facility] Comment on above: Performed By: #### 2 216728 #### [facility] [address] [place] [address] Potassium [Moles/Vol] 3.3 mmol/L Low 3.5-5.3 [facility] Comment on above: Performed By: #### 2 539106 #### [facility] [address] [place] [address] Sodium [Moles/Vol] 135 mmol/L Normal 135-145 [facility] Comment on above: Performed By: #### 2 518676 #### [facility] [address] [place] [address] Urea nitrogen [Mass/Vol] 7 mg/dL Normal 5-21 [facility] Comment on above: Performed By: #### 2 695657 #### [facility] [address] [place] [address] Urea nitrogen/Creatinine [Mass ratio] 12 No Units Normal 10-20 [facility] Comment on above: Performed By: #### 2 184452 #### [facility] [address] [place] [address] CBC w/ Auto Diffon 4 Basophils/100 WBC (Bld) 0.6 % Normal 0.0-2.0 [facility] Comment on above: Performed By: #### 2 594077 #### [facility] [address] [place] [address] Basophils/Leukocytes Auto (Bld) [Pure # fraction] 0.0 E9/L Normal 0.0-0.2 [facility] Comment on above: Performed By: #### 2 211992 #### [facility] [address] [place] [address] Eosinophils (Bld) [#/Vol] 0.2 E9/L Normal 0.0-0.5 [facility] Comment on above: Performed By: #### 2 597081 #### [facility] [address] [place] [address] Eosinophils/100 WBC (Bld) 2.4 % Normal 0.0-8.0 [facility] Comment on above: Performed By: #### 2 652683 #### [facility] [address] [place] [address] Erythrocyte distribution width (RBC) [Ratio] 17.6 % High 10.9-14.2 [facility] Comment on above: Performed By: #### 2 593013 #### [facility] [address] [place] [address] Hematocrit (Bld) [Volume fraction] 37.1 % Normal 34.0-46.0 [facility] Comment on above: Performed By: #### 2 450454 #### [facility] [address] [place] [address] Hemoglobin (Bld) [Mass/Vol] 12.4 g/dL Normal 12.0-16.0 [facility] Comment on above: Performed By: #### 2 420725 #### [facility] [address] [place] [address] Lymphocytes (Bld) [#/Vol] 1.5 E9/L Normal 1.0-4.0 [facility] Comment on above: Performed By: #### 2 688125 #### [facility] [address] [place] [address] Lymphocytes/100 WBC (Bld) 22.3 % Normal 14.0-50.0 [facility] Comment on above: Performed By: #### 2 796802 #### [facility] [address] [place] [address] MCH (RBC) [Entitic mass] 27.3 pg Normal 27.0-34.0 [facility] Comment on above: Performed By: #### 2 687612 #### [facility] [address] [place] [address] MCHC (RBC) [Mass/Vol] 33.4 g/dL Normal 31.4-36.0 [facility] Comment on above: Performed By: #### 2 976652 #### [facility] [address] [place] [address] MCV (RBC) [Entitic vol] 81.9 fL Normal 80.0-100.0 [facility] Comment on above: Performed By: #### 2 785070 #### [facility] [address] [place] [address] Monocytes (Bld) [#/Vol] 0.5 E9/L Normal 0.2-1.0 [facility] Comment on above: Performed By: #### 2 [id number] #### [facility] [address] [place] [address] Neutrophils (Bld) [#/Vol] 4.6 E9/L Normal 2.0-7.5 [facility] Comment on above: Performed By: #### 2 [id number] #### [facility] [address] [place] [address] Neutrophils/100 WBC (Bld) 67.7 % Normal 36.0-75.0 [facility] Comment on above: Performed By: #### 2 [id number] #### [facility] [address] [place] [address] Platelet 483.0 E9/L Normal 150.0-500.0 [facility] Comment on above: Performed By: #### 2 [id number] #### [facility] [address] [place] [address] Platelet mean volume (Bld) [Entitic vol] 7.1 fL Normal 6.4-10.8 [facility] Comment on above: Performed By: #### 2 [id number] #### [facility] [address] [place] [address] RBC (Bld) [#/Vol] 4.5 E12/L Normal 4.3-5.9 [facility] Comment on above: Performed By: #### 2 [id number] #### [facility] [address] [place] [address] WBC corrected for nucl RBC Auto (Bld) [#/Vol] 6.8 E9/L Normal 4.0-11.0 [facility] Comment on above: Performed By: #### 2 440591 #### [facility] [address] [place] [address] CHEMISTRYOrdered By: SYSTEM SYSTEM on 06-30-2024 Albumin [...] 13 mmol/L Normal 6 - 16 mEq/L R emisol Chem AST [Catalytic activity/Vol] 17 [iU]/d Normal [...] Proctor FINAL REPORT Dictated: 06/30/2024 1:31 pm Aldo Ken DO Signed (Electronic Signature): 06/30/2024 1:31 pm Signed by: Aldo Ken DO Transcribed by: CLARICE Technologist: IHSAN Technical Comments GFR (mL/min/1/73m2) na Contrast: Isovue 300 Contrast amount in ml's: 100 Rectal Contrast Given? No Normal [facility] ED Clinical Summaryon 2023 ED Clinical Summary ED Clinical Summary [place] [id number] ED Clinical Summary Person Information Name: ROLA AGUILAR Elena/[facility] Age: 28 Years : 1995 Sex: Female Language: Honduran PCP: NONE, XXXX Marital Status: Single Phone: [phone] Visit Id: Visit Reason: Weakness or fatigue; [...] 06/30/2024 15:22:16 06/30/2024 15:22:16 06/30/2024 15:22:16 ADDRESS: [address] [id number] PHYS DOC NOTES: MEDICAL INFORMATION: Prescriptions Given: Medications to Continue with No Changes Other Medications acetaminophen-oxycodo ne (Percocet 5 mg-325 mg oral tablet) 1 [...] Abscess Follow up: With: Address: When: XXXX NONE , [place] In 3 days 07/03/2024 Comments: Follow-up with your colorectal surgeon DIAGNOSIS: Crohn's disease; Rectal abscess Normal [facility] ED Patient Summaryon 024 ED Patient Summary ED Patient Summary [place] [id number] Patient Discharge Instructions Person Information Name: ROLA AGUILAR Age: 28 Years Arrival Date: 06/30/2024 11:05:49 Discharge Diagnosis: Crohn's disease; Rectal abscess Primary Care Physician: NONE, XXXX Provider Information Primary Provider: Harry Devine DO Advanced Implementation Lead:Puneet Proctor PA-C The exam and treatment you received in the Emergency Department were for an urgent problem and are not intended as complete care. It is important that you follow up with a doctor, nurse practitioner, or physician?s back office medical assistant for ongoing care. If your symptoms become [...] opioids can be used to help relieve rkufgdjz-ot-ijlwpz pain and are often prescribed following a [...] guidance from the Food and Drug Administration (www.fda.gov/Drugs/Re sourcesForYou). ? Visit www.cdc.gov/drugoverd ose to learn about the risks of opioids abuse and overdose. ? If you believe you may be struggling with addiction, tell your health career representative and ask for guidance or call SAMHSA?S National Helpline at 9-125-361-WTWG. v Source (more content not included)... Normal [facility] Extra Blueon 06-30-2024 Tube Collected Plasma Yes Invalid Interpretation Code [facility] Comment on above: Performed By: #### 1 [id number] #### [facility] [address] [place] [address] HEMATOLOGYOrdered By: SYSTEM SYSTEM on 06-30-2024 Basophils/100 [...] 06-30-2024 Albumin [Mass/Vol] 2.7 g/dL Low 3.3-5.0 [facility] Comment on above: Performed By: #### 2 090118 #### [facility] [address] [place] [address] Albumin/Globulin (S) [Mass conc ratio] 0.6 Low 1.1-2.2 [facility] Comment on above: Performed By: #### 2 343127 #### [facility] [address] [place] [address] ALP [Catalytic activity/Vol] 136 Int._Unit/L High 21-98 [facility] Comment on above: Performed By: #### 2 254719 #### [facility] [address] [place] [address] ALT No additional P-5'-P [Catalytic activity/Vol] 9 Int._Unit/L Normal 6-46 [facility] Comment on above: Performed By: #### 2 [id number] #### [facility] [address] [place] [address] AST [Catalytic activity/Vol] 17 Int._Unit/L Normal 5-43 [facility] Comment on above: Performed By: #### 2 143212 #### [facility] [address] [place] [address] Bilirubin [Mass/Vol] 0.5 mg/dL Normal 0.0-1.[address] [facility] Comment on above: Performed By: #### 2 056008 #### [facility] [address] [place] [address] Bilirubin.direct [Mass/Vol] 0.1 mg/dL Normal 0.0-0.4 [facility] Comment on above: Performed By: #### 2 113816 #### [facility] [address] [place] [address] Bilirubin.indirect [Mass or moles/Vol] 0.4 mg/dL Normal 0.1-0.9 [facility] Comment on above: Performed By: #### 2 539318 #### [facility] [address] [place] [address] Globulin (S) [Mass/Vol] 4.8 g/dL High 1.4-4.0 [facility] Comment on above: Performed By: #### 2 092042 #### [facility] [address] [place] [address] Protein [Mass/Vol] 7.5 g/dL Normal 6.0-7.8 [facility] Comment on above: Performed By: #### 2 560647 #### [facility] [address] [place] [address] Lipase Levelon 06-30-2024 Lipase [Catalytic activity/Vol] 29 U/L Normal 13-58 [facility] Comment on above: Performed By: #### 2 312991 #### [facility] [address] [place] [address] eGFRon 06-30-2024 eGFR 125 mL/min/1.73 m2 Normal >=59 [facility] Comment on above: Performed By: #### 1 [id number] #### [facility] [address] [place] [address] CNPNon 05-13-2024 CNPN Telephone (GENSAV) ROLA AGUILAR ([id number]) 1995 F Date Time Provider Department 05/13/24 CANDIS LAUGHLIN GENSAV During your visit today, we recorded the [...] the Crohns and severity of perianal disease Pichardo Coord, Yannick 05/13/2024 11:05 AM Signed Called and spoke to patient, appt with Dr White has been canceled. Patient states she tried to schedule a follow up with Dr Thakkar and was told he does not treat perianal abscess, advised pt I will look into this matter and call her back. Jeremiah Kaur Zuly Richard 05/14/2024 1:07 PM Signed Lvm regarding the information below contact office to schedule this appt Zuly Richard Jeremiah Daniels Zuly Kaur 05/18/2024 12:03 PM Signed clinical states Dr Thakkar will see for this dx. see notes below I tried to contact patient - she has not returned the call Zuly Kaur Marino Mcclure, Yannick 05/19/2024 10:19 AM Signed Called and spoke to patient, appt schd with Dr Thakkar on 06/19 in [place] 9:45a, pt aware of location. Thank you. [...] 07/27/2023 08/01/2023 General counseling and advice for contraceptive* 023 10/24/2023 Abdominal pain [R10.9] 08/19/2023 10/27/2023 Crohn's [...] Status:Closed by CANDIS LAUGHLIN on 05/13/24 Normal [facility] B hCG Qualon 04-08-2024 Beta HCG ( test) Ql Negative Normal [facility] Comment on above: Performed By: #### 2 [id number] #### [facility] [address] [place] [address] BMPon 04-08-2024 Anion gap [Moles/Vol] 17 mmol/L High 6-16 [facility] Comment on above: Performed By: #### 2 328087 #### [facility] [address] [place] [address] Calcium [Mass/Vol] 8.8 mg/dL Low 8.9-11.1 [facility] Comment on above: Performed By: #### 2 287687 #### [facility] [address] [place] [address] Chloride [Moles/Vol] 95 mmol/L Low 101-111 [facility] Comment on above: Performed By: #### 2 333458 #### [facility] [address] [place] [address] CO2 [Moles/Vol] 27 mmol/L Normal 21-31 [facility] Comment on above: Performed By: #### 2 598448 #### [facility] [address] [place] [address] Creatinine [Mass/Vol] 0.8 mg/dL Normal 0.5-1.3 [facility] Comment on above: Performed By: #### 2 721457 #### [facility] [address] [place] [address] Glucose [Mass/Vol] 101 mg/dL Normal 55-199 [facility] Comment on above: Performed By: #### 2 585968 #### [facility] [address] [place] [address] Potassium [Moles/Vol] 3.2 mmol/L Low 3.5-5.3 [facility] Comment on above: Performed By: #### 2 908376 #### [facility] [address] [place] [address] Sodium [Moles/Vol] 136 mmol/L Normal 135-145 [facility] Comment on above: Performed By: #### 2 083807 #### [facility] [address] [place] [address] Urea nitrogen [Mass/Vol] 9 mg/dL Normal 5-21 [facility] Comment on above: Performed By: #### 2 592921 #### [facility] [address] [place] [address] Urea nitrogen/Creatinine [Mass ratio] 11 No Units Normal 10-20 [facility] Comment on above: Performed By: #### 2 438084 #### [facility] [address] [place] [address] CBC w/ Auto Diffon 4 Basophils/100 WBC (Bld) 0.5 % Normal 0.0-2.0 [facility] Comment on above: Performed By: #### 2 084594 #### [facility] [address] [place] [address] Basophils/Leukocytes Auto (Bld) [Pure # fraction] 0.0 E9/L Normal 0.0-0.2 [facility] Comment on above: Performed By: #### 2 880592 #### [facility] [address] [place] [address] Eosinophils (Bld) [#/Vol] 0.1 E9/L Normal 0.0-0.5 [facility] Comment on above: Performed By: #### 2 285707 #### [facility] [address] [place] [address] Eosinophils/100 WBC (Bld) 1.0 % Normal 0.0-8.0 [facility] Comment on above: Performed By: #### 2 276786 #### [facility] [address] [place] [address] Erythrocyte distribution width (RBC) [Ratio] 16.2 % High 10.9-14.2 [facility] Comment on above: Performed By: #### 2 671888 #### [facility] [address] [place] [address] Hematocrit (Bld) [Volume fraction] 35.8 % Normal 34.0-46.0 [facility] Comment on above: Performed By: #### 2 001148 #### [facility] [address] [place] [address] Hemoglobin (Bld) [Mass/Vol] 12.2 g/dL Normal 12.0-16.0 [facility] Comment on above: Performed By: #### 2 854404 #### [facility] [address] [place] [address] Lymphocytes (Bld) [#/Vol] 0.8 E9/L Low 1.0-4.0 [facility] Comment on above: Performed By: #### 2 299339 #### [facility] [address] [place] [address] Lymphocytes/100 WBC (Bld) 12.5 % Low 14.0-50.0 [facility] Comment on above: Performed By: #### 2 613340 #### [facility] [address] [place] [address] MCH (RBC) [Entitic mass] 27.1 pg Normal 27.0-34.0 [facility] Comment on above: Performed By: #### 2 371174 #### [facility] [address] [place] [address] MCHC (RBC) [Mass/Vol] 34.0 g/dL Normal 31.4-36.0 [facility] Comment on above: Performed By: #### 2 625710 #### [facility] [address] [place] [address] MCV (RBC) [Entitic vol] 79.6 fL Low 80.0-100.0 [facility] Comment on above: Performed By: #### 2 418469 #### [facility] [address] [place] [address] Monocytes (Bld) [#/Vol] 1.2 E9/L High 0.2-1.0 [facility] Comment on above: Performed By: #### 2 224602 #### [facility] [address] [place] [address] Neutrophils (Bld) [#/Vol] 4.1 E9/L Normal 2.0-7.5 [facility] Comment on above: Performed By: #### 2 696084 #### [facility] [address] [place] [address] Neutrophils/100 WBC (Bld) 66.9 % Normal 36.0-75.0 [facility] Comment on above: Performed By: #### 2 002654 #### [facility] [address] [place] [address] Platelet 532.0 E9/L High 150.0-500.0 [facility] Comment on above: Performed By: #### 2 943246 #### [facility] [address] [place] [address] Platelet mean volume (Bld) [Entitic vol] 7.8 fL Normal 6.4-10.8 [facility] Comment on above: Performed By: #### 2 580526 #### [facility] [address] [place] [address] RBC (Bld) [#/Vol] 4.5 E12/L Normal 4.3-5.9 [facility] Comment on above: Performed By: #### 2 431485 #### [facility] [address] [place] [address] WBC corrected for nucl RBC Auto (Bld) [#/Vol] 6.1 E9/L Normal 4.0-11.0 [facility] Comment on above: Performed By: #### 2 335814 #### [facility] [address] [place] [address] CHEMISTRYOrdered By: Tony Espinal on 04-08-2024 Albumin [...] 17 mmol/L High 6 - 16 mEq/L R emisol Chem AST [Catalytic activity/Vol] 8 [iU]/d Normal [...] Lymph nodes: No abdominal or pelvic lymphadenopathy. Mesentery/Peritoneum/ Retroperitoneum: No loculated collection. Interval resolution of the [...] 300 Contrast amount in ml's: 100 Normal [facility] ED Clinical Summaryon 2023 ED Clinical Summary ED Clinical Summary [place] [address] ED Clinical Summary Person Information Name: ROLA AGUILAR Elena/[facility] Age: 28 Years : 1995 Sex: Female Language: Honduran PCP: NONE, XXXX Marital Status: Single Phone: [phone] Visit Id: Visit Reason: Blood in stool; [...] 04/08/2024 16:13:11 04/08/2024 16:13:11 04/08/2024 16:13:11 ADDRESS: [address] [place] [id number] PHYS DOC NOTES: MEDICAL INFORMATION: Prescriptions Given: Medications to Continue Taking That Have Changed [facility]/pharmacy #[id number], [address] [place], [place] [id number], [phone] START: dicyclomine (Bentyl 10 mg Cap) 1 [...] to Continue with No Changes Other Medications acetaminophen-oxycodo ne (Percocet 5 mg-325 mg oral tablet) 1 [...] promethazine (promethazine (more content not included)... Normal [facility] ED Note-Physicianon 04-08-20 ED Note-Physician ED Note-Physician Basic Information Time Seen: Ramesh LEDESMA, Wil Amaya 04/08/2024 11:37 Chief Complaint pt c/o lower [...] and Complexity of Problems Differential Diagnosis: [] [facility] Data External documents reviewed: [] My EKG [...] day(s), # 28 cap(s), Refills(s) 0, Pharmacy: [facility]/pharmacy #[id number], 167, cm, 04/08/24 11:39:00 EDT, [...] Nausea/Vomiting, # 12 tab(s), Refills(s) 0, Pharmacy: [facility]/pharmacy #[id number], 167, cm, 04/08/24 11:39:00 EDT, [...] prednisone., # 72 tab(s), Refills(s) 0, Pharmacy: [facility]/pharmacy #[id number], 167, cm, 04/08/24 11:39: (more content not included)... Normal [facility] Comment on above: Result Comment: Elec tronically Signed By: Wil Chandler PA-C.br\Date and Time Signed: 04/08/24 15:26 EDT\.br\Electronically Co-Signed By: Carolyn Mcmahon M.D..br\Date and Time Co-Signed: 04/08/24 17:46 EDT ED Patient Summaryon 024 ED Patient Summary ED Patient Summary [address] [address] Patient Discharge Instructions Person Information Name: ROLA AGUILAR Age: 28 Years Arrival Date: 04/08/2024 11:34:25 Discharge Diagnosis: Abdominal pain; Crohn's disease Primary Care Physician: NONE, XXXX Provider Information Primary Provider: Lisandro Mishra, Carolyn Drake Advanced Implementation Lead:None The exam and treatment you received in the Emergency Department were for an urgent problem and are not intended as complete care. It is important that you follow up with a doctor, nurse practitioner, or physician?s back office medical assistant for ongoing care. If your symptoms become worse or you do not improve as expected and you are unable to reach your usual health care provider, you should return to the Emergency Department. We are available 24 hours a day. ROLA AGUILAR has been given the following list of patient education materials, prescriptions and follow-up instructions: Follow-up Instructions: With: Address: When: Shilpa Rendone [address] [place] [address], [place] [id number] Business (1) In 3 days 04/11/2024 Comments: [...] opioids can be used to help relieve ttavlrkq-fx-fgxjih pain and are often prescribed following a [...] guidance from the Food and Drug Administration (www.fda.gov/Drugs/Re sourcesForYou). ? Visit www.cdc.gov/drugoverd ose to learn about the risks of opioids abuse and overdose. ? If you believe you may be struggling with addiction, tell your health career representative and as (more content not included)... Normal [facility] HEMATOLOGYOrdered By: Nellie Drake on 04-08-2024 Band form neutrophils/100 WBC [...] 04-08-2024 Albumin [Mass/Vol] 3.5 g/dL Normal 3.3-5.0 [facility] Comment on above: Performed By: #### 2 667145 #### [facility] [address] [place] [address] Albumin/Globulin (S) [Mass conc ratio] 0.9 Low 1.1-2.2 [facility] Comment on above: Performed By: #### 2 511816 #### [facility] [address] [place] [address] ALP [Catalytic activity/Vol] 103 Int._Unit/L High 21-98 [facility] Comment on above: Performed By: #### 2 685036 #### [facility] [address] [place] [address] ALT No additional P-5'-P [Catalytic activity/Vol] 10 Int._Unit/L Normal 6-46 [facility] Comment on above: Performed By: #### 2 860096 #### [facility] [address] [place] [address] AST [Catalytic activity/Vol] 8 Int._Unit/L Normal 5-43 [facility] Comment on above: Performed By: #### 2 622021 #### [facility] [address] [place] [address] Bilirubin [Mass/Vol] 0.5 mg/dL Normal 0.0-1.[address] [facility] Comment on above: Performed By: #### 2 384439 #### [facility] [address] [place] [address] Bilirubin.direct [Mass/Vol] 0.1 mg/dL Normal 0.0-0.4 [facility] Comment on above: Performed By: #### 2 988617 #### [facility] [address] [place] [address] Bilirubin.indirect [Mass or moles/Vol] 0.4 mg/dL Normal 0.1-0.9 [facility] Comment on above: Performed By: #### 2 950826 #### [facility] [address] [place] [address] Globulin (S) [Mass/Vol] 4.0 g/dL Normal 1.4-4.0 [facility] Comment on above: Performed By: #### 2 724085 #### [facility] [address] [place] [address] Protein [Mass/Vol] 7.5 g/dL Normal 6.0-7.8 [facility] Comment on above: Performed By: #### 2 663109 #### [facility] [address] [place] [address] Lipase Levelon 04-08-2024 Lipase [Catalytic activity/Vol] 25 U/L Normal 13-58 [facility] Comment on above: Performed By: #### 2 754164 #### [facility] [address] [place] [address] Manual Diffon 04-08-2024 Band form neutrophils/100 WBC (Bld) 17 % High 0-6 [facility] Comment on above: Performed By: #### 2 928229 #### [facility] [address] [place] [address] Basophils/100 WBC (Bld) 1.0 % Normal 0.0-2.0 [facility] Comment on above: Performed By: #### 2 278310 #### [facility] [address] [place] [address] Eosinophils/100 WBC (Bld) 4.0 % Normal 0.0-8.0 [facility] Comment on above: Performed By: #### 2 117157 #### [facility] [address] [place] [address] Lymphocytes/100 WBC (Bld) 17.0 % Normal 14.0-50.0 [facility] Comment on above: Performed By: #### 2 061968 #### [facility] [address] [place] [address] Monocytes/100 WBC (Bld) 12.0 % Normal 4.0-14.0 [facility] Comment on above: Performed By: #### 2 190781 #### [facility] [address] [place] [address] RBC size Nom (Bld) NORMAL Normal [facility] Comment on above: Performed By: #### 2 587594 #### [facility] [address] [place] [address] Segmented neutrophils/100 WBC (Bld) 49.0 % Normal 36.0-75.0 [facility] Comment on above: Performed By: #### 2 987293 #### [facility] [address] [place] [address] Pre-Arrival Noteon Pre-Arrival Note Pre-Arrival Note Pre-Arrival Summary Name: , [facility] Current Date: 04/08/2024 11:35:52 EDT Gender: Female Date of : Age: 28 Pre-Arrival Type: EMS ETA: 04/08/2024 11:56:00 EDT Primary Care Physician: Presenting Problem: n/v/d Pre-Arrival User: Meeta Arora Referring Source: Location: [place] Completion Date/Time: 04/08/2024 11:28:00 [facility] Emergency Department Pre-Hospital Report Form Vital Signs: 103/78 HR 120 RR 15 98% RA Pre-Hospital Report: hx of crohns, blood in stool Treatment in Route: 22 L hand started fluids 4mg zofran Response to Treatment: Misc. Issues: Normal [facility] SEROLOGYOrdered By: Fabienne pierson on 04-08-2024 Beta HCG ( test) Ql Negative (04/08/24 11:55 AM) Normal [facility] Man Sero eGFRon 04-08-2024 eGFR 102 mL/min/1.73 m2 Normal >=59 [facility] Comment on above: Order Comment: Order added by Discern Expert. Performed By: #### 1 [id number] #### [facility] [address] [place] [address] [facility] 04-01-2024 AMAURY Telephone (MAK) ROLA AGUILAR ([id number]) 1995 F Date Time Provider Department 04/01/24 MADDIE SEVILLA During your visit today, we recorded the following information about you: Maddie Sevilla RN 04/01/2024 10:04 AM Signed Patient has [...] advise next steps that would be appreciated! Maddie Sevilla, SHAHBAZ 04/01/2024 10:40 AM Signed Received message from pharmacy, confirmed that patient is okay to start pens at week 6, as in therapy plan. Pharmacy team stated they will call patient end of March to set up pen pickup/shipment. Patient also verbalized to me that she would be requesting in the meantime her prescription be switched to [facility] d/t proximity to home. [...] 07/27/2023 08/01/2023 General counseling and advice for contraceptive* 023 10/24/2023 Abdominal pain [R10.9] 08/19/2023 10/27/2023 Crohn's [...] Encounter Status:Closed by MADDIE SEVILLA on 04/01/24 [facility]20[facility] ROLA AGUILAR ([id number]) 1995 F Date Time Provider Department 03/25/24 MADDIE SEVILLA [facility] During your visit today, we recorded the following information about you: Maddie Sevilla RN 03/25/2024 3:06 PM Signed Called patient re: missed appt for entyvio infusion. Left voicemail reminding patient of loading dose schedule, requesting a return call to us AND phone number provided to [facility] infusion center. Maddie Sevilla RN 03/31/2024 1:09 PM Signed Called patient, 2nd attempt regarding missed entyvio appt. Spoke with her and she would like to continue with induction. To come in for 2nd dose tomorrow 04/01 @ 0900. [facility] team - please put her on schedule. Dr. Humphries/Brittny - she is now a week late on her 2nd dose d/t no show, instead of loading at 0 AND 2 weeks it will be 0 AND 3 weeks prior to moving to [facility]. Just wanted to confirm that was [...] Date Reviewed: 03/12/2024 Reviewed by: Jagjit Yap, SHAHBAZ - Fully Assessed Prescriptions as of 04/02/2024 [...] 07/27/2023 08/01/2023 General counseling and advice for contraceptive* 023 10/24/2023 Abdominal pain [R10.9] 08/19/2023 10/27/2023 Crohn's [...] Encounter Status:Closed by MADDIE SEVILLA on 03/25/24 Normal [facility] Coding Summary.on 03-12-2024 Coding Summary. OCVCJtpk30UOm7tKm+PG h lYWQ+YM4DZRXtK81nrLDt zK5yM5NKKOyKMsxvEUZZT RsXHlEskmXgQZ9plHFxEB Ju IC8+RM1uTVImDrsadBUut 2G0lLY7F60dzg2lGKqccK Q1NWIsCaNwxearj8navRd 6IDcuNmluOyBt QQUrlT03PRT4zT77Ak98e RZwcQVxj2hbcXm6NiHfPZ MxGOS1cWbaNDdfl5XnUKZ sT57aeQMww8R2 LCNtcFrhxPIgZpWqyCN4x C8aKEqywtebd1xjlplwOv z7ow29vSHeq0K3bZG5Y4J uqiV4ZKJfdUDm WrmfxOXSrR2ytzkbf3eba qulHlTdFWPwHQf1EHf7XE WsiJezDrMbBS43UIQ5RJK bcqTlT3BbZUJh qYzsOzC5l6D5Hc0JM3JDD dbbE0IGTRPDBRkakMA+PC 16nb53N1FaHumyOgn3QDY nKKE4oEA6hQ4e VMBuMPduh6V7nIY1V2Wzp kRyhn7lq3wqMTSyEUbaN2 1tsGHzt4C8VGAaqJQ6QJT waDapNvSvhP39 Oyc+OCJymLhtw1HrNidbf 0bbs2jfcHe6HcjxCQMwbm ZmkZkkVWS3k6YnYl2cXCP akHH5bFW7gU0q QsLyEjX5EZxzT654VtMvc EVfWtclT21qG5IxbEF+PH KeUit6KIXmrGmbKR7yF8T hZGRpbmctbGVm bUqjMU0tSQMfhokfCTRox A8jZXAqC8i1RnViJtW5DC lfP4BtXEDqncxcYd44cE5 xMmXgHqV6NJab L5SdfzR4ORXcvHQuDRqeF QM4H84vo6Y0UBUuMIThWZ N9lVB3gN6yqAcmskyfnKP mdDsgdmVydGlj NNtwDUjqU140XEUjoMorJ kNvZGluZyBEYXRlOiAgMD YvMjAvMjAyNDwvdGQ+PHR oIVA7zRptHSQa wCOvBQwtLj0sbRksdBdaG T1qMRCyncqtXATavY3wNZ PawNNguMqdZG3hAIZepxr tz960HnDdMIY4 URHbsLMgY1GzbY1wTjElI GTdWTOdI8QfeBNrQOadO0 12MUjjPtX7XJVzecNzH6Q sLWFsaWduOiB0 j7W5Uo0Tl3JuwebdC2Jku TAkQlCnKbefSIa9B4SmLe wvdHI+IK13QVScZO47DSo 7OSU5sWnzAIcg VYCjN1GwbH0vCaFvABRlD GRkOyc+PHRhYmxlIHdpZH RoPScxMDAlJyBzdHlsZT0 bLw4vYAOiDGMh sHntpOHvGkUic7riIAKrW WekFJ4jsGapE3JblBN4FU Qzz4x8Ml12L09qK5WamDK +ZWIkcSE2bCR8 iS9yNiEoAvT6IKgpU591H lCyuYCnYiqoj9fqa1entE w2SfH9IVLlpnLbgMdqLCQ 2z7EtUg48F87o IHdpZHRoPSIxNSUiIHZhb Rycok2slF7iHt7+PGNvbC Z8yZY6bF3sJrMrDcI5WDb yI790KqOgrLPf Lmial3zaq7kttQv3TqMeU QVyekKdiKxjNHN0p8BmOr 25V1XpsDehb5QgWuk4vn1 5wMHnj0B6fJB1 L7UdNAIkemqbsXWasBwkL F9mFIEgawtcPTNzeU5eNT UjQ5e7GwEaNvT4PStmI2J emqA2HCBhqRIc DXHokOPZdB2pgzdde7qom kzkOfMjPADzNQe6BLp6MS PfdUxsGbQwRHL0AuD6CJG 0kJGksA3smVqx dyftqP2uCvf+WZO1oVRdo ALGZF2gQcbytHZ+PHRkIH Z4iKzbJMqwSOAgtI6cVQY iX5r7YaFrBqC9 IXouL9VmcmJ1XCEcgHOjP QFanPESdZ4dgtlwk0ncsj eiWgDfCGOeTGc3JTp5WHQ saWduOiBsZWZ0 GnD0VNK9mVFuaI1boCsdw dhmvE5nCkv+QmlydGggRG J7VQk9P7QwCbp4WECzfUm yEM0nzWDkEMcb Hk3qsJdwiQarZY8gKIJwm ejhl332LoBvb7dnOKUgwH DoJPniIHZ9Y25tp1M5APU nTDOiPVN6uHB7 fM7pnRsiumcraYCszWrey aRkbGoqCTcuJKquY064FD YzkUvnKjXyQJz4M8TbMgg 7JVCyxPooKY7v wXOlKCdlLz6nfUxazSruV K2vUTHqnjwls473WiEmx4 sqKZGrpOBiYQfeBFU8T08 xk5I4ZMOfSYFa XPF4jGU6hO0ypNhclwkmq GVmdDsgdmVydGljYWwtYW scS969TMCfvXfzKoWyhGn 9A4FgEfy0YSSc sAjvZU7usDLoJTavYp0gr XyckNykNO7rEIXsqfavn4 15GxYob5aeVOMhpAUnEPt lXJY2P20yk8F7 AUTgCBPfPQF4jTM5jT8cw GlnbjogbGVmdDsgdmVydG dgNTsbJMprX961TOClbCt nPlBhdGllbnQg KPreOVh3G5NcQhgwuSM+P L58NKGqSJ24rCXatMTvc4 cybRj4DdStXQJkSTF5lPy mSJkde6LzEEVx W65vsILlq1Y3OGUskSknd DPjKmPukDT3lW1jSHxgbt lop8iiqscgVqtqv3uccy1 5eE41C10zWLab ZHRoPSIzMCUiIHZhbGlnb j2tzY7nDl4+WVAcyLP2nU L0mW9iSNEuCwW6DDgdP55 9InRvcCIvPjxj h3aao0jrrCh8ZtI7ETZen cGudMffGYK0e3FtFc50A8 9sIHdpZHRoPSIyMCUiIHZ ayAxrfh2taY3b Ii8+AWXgdPM1oLJ8gK5hV wErQgC6AMjeU483IyTkbP FbSwpzX79xL4BitKU+PHR cZra6FOTsiOfw UA7jeWGkBNbbCr9kJOQ7Q oSeXnRrOKocS6PuQYHufl ugjkuydNU0FUGdLNAjyB0 9Qe0pwUimZGZc mMMIjW4qudfgt4dtzfecF zUuZXDzCRq9AUs8QCZeiA uvEvWoFVO8RtF7BON7eMS nzR8ebQwauopf xQ7iD5DfFEJecpbaHp32h H9mWeKfWrA9DNlxBna+SE SKW09FEUODFyxYTQRUSNW 0R1RdBjx8ZMEo kRrhPB0xnWShMApeXx9fn OqclKylHG7eXZAwjmeeLZ YovP0eHAMhhELziVeyGZ9 oATKlnjawk255 MvOzRFD0OXHkgLXkG0Hhm H3uAnKhNKUmVTFeB0YhqV ZuDNthG966HPcxPsJ5FSB glxGqQ4MhOISx bKvzQeI2u8X2Pq5oFY4fF Y7nKNw9LQ96YG54aLTia5 D4mLK6T2ZvUWHzdigkazn goHT5EYZeZWYv fT98aDKaGUsfVa8ne1E2s 737GJDxBVLezV51Wd0rzJ wqWCLyaJJAtV3dvurfn4z vcjogIzAwMDAw VRh6UFc3KCVhhAerNpNlW DL1BoZ7HTC2eAIkhX2yjK xnmrrnwJ1mWps+MjggWWV acwV3H8VqAvo2 RJWpiJakKG0rzDVxZDtvO y3juPvipDsiWH0nEYHbfn fgSQFztE6sRGCbyVKsgJb zTU6tKYNbwtww g884QxLsYUH4URQasYMfM 0PvmV2tAwEaMRDgDHQtM6 QevDUrDEjbU606OOdhCvP 5BMJeazCnF2Xc PNYxyBywJqF1u7E4Ce2JD B9bgCR6S3EyKkh0RWNtxA srSX9klDGoRIdsZf9pfZl okTaaHX2rXEMh cduzPWQbrI0zOKJusWUgr GkvWY8fIVMvuxfyw669Zm ZnOKX3EYJqrABxV3NluB4 yOiAjMDAwMDAw T3CsjCPfKWdtT942UBlrB mU4XYEtcyScU4XyTYXmnS eiRbT4o4W1Tt5AoKScR8S mC4i7X3AdYfmu dHI+KH85HRCzNX06mRRsr HLre8odeOi0AnHmNMMuOO P5qGerJScev5PvCBXeO99 avWFnp1R6GJRc fYvkhYOcUaIlqLW5wB9tB Kkbemdic9ixejyxMxvra2 xawm94sG28A25rMHakJVN oPSIzMCUiIHZh wGcxvy3roB4vYs3+PGNvb UA5fFO1cQ8iTbHlRwN6MS tjF482AjWveCCcXunxj0b xu6ajoWq9DnDp UEWpcgNxoLubVOJ4f2CyX a73M03iEArsRNPpGTDaYV DhVFXtiAwbdv9xxD7nDz6 +VY3yy4kegs49 iI72mAT+OOLrAGA1rJlgM OqoKQTuwW2uZEbgFzY5KV LsDcXvyV17iJInRBzkTc8 opXvdqEtzOI2u FTFdjkmkj258CfQmx0psC AXbiKQuBIneVVF2H19rf2 H2KEPuKPZnHZA6uGC2hM5 hbGlnbjogbGVm dDsgdmVydGljYWwtYWxpZ 486IPGbcRanQwFhcPJaO1 tflmUZVK5pBjmemEV+PHR gGBJ6gGelXOna ENXqqY8pUWZdG1w6UbYbP vP4IEjqT9WaieM2KKNwgR BzBHIvtBLBmP6aqdggz1a vcjogIzAwMDAw JXs0DJb7MBVdhQmiXzTcF AR2XeU9WIR3gHSmaT4aeW fzqhghnT3hWeh+RklOOjw vdGQ+PHRkIHN0 rGcmIJhoAPTrfB8dVYTsU 3x6DvSzLcD1XIzoY0Godo D1OWBwjDZwBSRflQTMbS7 qoxtvy0tiphki CwSnXBDsBXj8HTu5QZCqs AarMxMkECG9KpA3KXZ5aQ KhbH6jhFdgcetiaI5pWku +TVJOOjwvdGQ+ BHAtWHZ2oJhyLNrdXUBzi W9uFMJmM9j9RsIgGnV8XP wpS6KwlwR4MQKkfZPdROC frHZAnR2apfjk d2frlfxlBaNeGBGxKAw6J Af3VWTloAmhErTbSDM0Lx M7LZO5qTFsvB6mbNmbvir tiS5kOzv+UGF5 WSF8JT86PH09U8LyRivak GFibGU+PHRhYmxlIHdpZH RoPScxMDAlJyBzdHlsZT0 aTz2uSNTkHKQx bGxhcHNlOiBjb (more content not included)... Normal [facility] BMPon 03-08-2024 Anion gap [Moles/Vol] 12 mmol/L Normal -16 [facility] Comment on above: Performed By: #### 2 [id number] #### [facility] [address] [place] [address] Calcium [Mass/Vol] 8.7 mg/dL Low 8.9-11.1 [facility] Comment on above: Performed By: #### 2 [id number] #### [facility] [address] [place] [address] Chloride [Moles/Vol] 103 mmol/L Normal 101-[address] [facility] Comment on above: Performed By: #### 2 [id number] #### [facility] [address] [place] [address] CO2 [Moles/Vol] 24 mmol/L Normal 21-31 [facility] Comment on above: Performed By: #### 2 [id number] #### [facility] [address] [place] [address] Creatinine [Mass/Vol] 0.7 mg/dL Normal 0.5-1.3 [facility] Comment on above: Performed By: #### 2 [id number] #### [facility] [address] [place] [address] Glucose [Mass/Vol] 93 mg/dL Normal 55-199 [facility] Comment on above: Performed By: #### 2 [id number] #### [facility] [address] [place] [address] Potassium [Moles/Vol] 3.7 mmol/L Normal 3.5-5.3 [facility] Comment on above: Performed By: #### 2 [id number] #### [facility] [address] [place] [address] Sodium [Moles/Vol] 135 mmol/L Normal 135-145 [facility] Comment on above: Performed By: #### 2 [id number] #### [facility] [address] [place] [address] Urea nitrogen [Mass/Vol] 8 mg/dL Normal 5-21 [facility] Comment on above: Performed By: #### 2 [id number] #### [facility] [address] [place] [address] Urea nitrogen/Creatinine [Mass ratio] 11 No Units Normal 10-20 [facility] Comment on above: Performed By: #### 2 [id number] #### [facility] [address] [place] [address] CBC w/ Auto Diffon 4 Basophils/100 WBC (Bld) 0.4 % Normal 0.0-2.0 [facility] Comment on above: Performed By: #### 2 [id number] #### [facility] [address] [place] [address] Basophils/Leukocytes Auto (Bld) [Pure # fraction] 0.0 E9/L Normal 0.0-0.2 [facility] Comment on above: Performed By: #### 2 [id number] #### [facility] [address] [place] [address] Eosinophils (Bld) [#/Vol] 0.0 E9/L Normal 0.0-0.5 [facility] Comment on above: Performed By: #### 2 [id number] #### [facility] [address] [place] [address] Eosinophils/100 WBC (Bld) 0.2 % Normal 0.0-8.0 [facility] Comment on above: Performed By: #### 2 [id number] #### [facility] [address] [place] [address] Erythrocyte distribution width (RBC) [Ratio] 16.8 % High 10.9-14.2 [facility] Comment on above: Performed By: #### 2 [id number] #### [facility] [address] [place] [address] Hematocrit (Bld) [Volume fraction] 35.2 % Normal 34.0-46.0 [facility] Comment on above: Performed By: #### 2 [id number] #### [facility] [address] [place] [address] Hemoglobin (Bld) [Mass/Vol] 11.8 g/dL Low 12.0-16.0 [facility] Comment on above: Performed By: #### 2 [id number] #### [facility] [address] [place] [address] Lymphocytes (Bld) [#/Vol] 0.8 E9/L Low 1.0-4.0 [facility] Comment on above: Performed By: #### 2 019267 #### [facility] [address] [place] [address] Lymphocytes/100 WBC (Bld) 12.8 % Low 14.0-50.0 [facility] Comment on above: Performed By: #### 2 [id number] #### [facility] [address] [place] [address] MCH (RBC) [Entitic mass] 27.1 pg Normal 27.0-34.0 [facility] Comment on above: Performed By: #### 2 [id number] #### [facility] [address] [place] [address] MCHC (RBC) [Mass/Vol] 33.5 g/dL Normal 31.4-36.0 [facility] Comment on above: Performed By: #### 2 [id number] #### [facility] [address] [place] [address] MCV (RBC) [Entitic vol] 80.9 fL Normal 80.0-100.0 [facility] Comment on above: Performed By: #### 2 [id number] #### [facility] [address] [place] [address] Monocytes (Bld) [#/Vol] 0.6 E9/L Normal 0.2-1.0 [facility] Comment on above: Performed By: #### 2 [id number] #### [facility] [address] [place] [address] Neutrophils (Bld) [#/Vol] 4.7 E9/L Normal 2.0-7.5 [facility] Comment on above: Performed By: #### 2 [id number] #### [facility] [address] [place] [address] Neutrophils/100 WBC (Bld) 77.2 % High 36.0-75.0 [facility] Comment on above: Performed By: #### 2 034396 #### [facility] [address] [place] [address] Platelet 330.0 E9/L Normal 150.0-500.0 [facility] Comment on above: Performed By: #### 2 801348 #### [facility] [address] [place] [address] Platelet mean volume (Bld) [Entitic vol] 7.4 fL Normal 6.4-10.8 [facility] Comment on above: Performed By: #### 2 557131 #### [facility] [address] [place] [address] RBC (Bld) [#/Vol] 4.3 E12/L Normal 4.3-5.9 [facility] Comment on above: Performed By: #### 2 016157 #### [facility] [address] [place] [address] WBC corrected for nucl RBC Auto (Bld) [#/Vol] 6.1 E9/L Normal 4.0-11.0 [facility] Comment on above: Performed By: #### 2 [id number] #### [facility] [address] [place] [address] CHEMISTRYOrdered By: SYSTEM SYSTEM on 03-08-2024 Albumin [...] 12 mmol/L Normal 6 - 16 mEq/L R emisol Chem AST [Catalytic activity/Vol] 9 [iU]/d Normal [...] 30.3 s Normal 25.1 - 36.5 second(s) [facility] Auto Coag Comment on above: Interpretive Data: P arameter 15 days - 4 weeks 1 - [...] the same coagulation reagent and instrumentation as [facility]. Currently there are no coagulation studies available worldwide for children to 14 days, and no normal ranges. Heparin therapeutic range (represented by Anti-Factor Xa activity of 0.2 - 0.4 U/mL) corresponds to PTT of 56.6 - 109.0 sec. INR Coag (PPP) [Relative time] 1.10 {INR} Invalid Interpretation Code [facility] Auto Coag Comment on above: Interpretive Data: I NR results are specifically intended to assess patients stabilized on long-term Anticoagulation therapy suggested INR s Less Intensive Anticoagulation 2.0 3.0 Conventional Range 3.0 4.5 PT Coag (PPP) [Time] 12.3 s Normal 9.4 - 1 2.5 second(s) [facility] Auto Coag Comment on above: Interpretive Data: [...] the same coagulation reagent and instrumentation as [facility]. Currently there are no coagulation studies available [...] 12/21/2023 with mild dependent atelectasis. Ordering Provider: Craolyn Mcmahon FINAL REPORT Dictated: 03/08/2024 1:19 pm Dominic Pyle MD Signed (Electronic Signature): 03/08/2024 1:19 pm Signed by: Dominic Pyle MD Transcribed by: CLARICE Technologist: MAUREEN Technical Comments GFR (mL/min/1/73m2) >60 Contrast: Isovue 300 Contrast amount in ml's: 100 Rectal Contrast Given? No Normal [facility] Consent for Treatmenton 02-21 Consent for Treatment [id number] .[id number] Normal [facility] Discharge Instructionson Discharge Instructions [id number] .[id number] Normal [facility] ED Clinical Summaryon 2023 ED Clinical Summary [place] [id number] ED Clinical Summary Person Information Name: ROLA AGUILAR Ed Elena/[facility] Age: 28 Years : 1995 Sex: Female Language: Honduran PCP: NONE, XXXX Marital Status: Single Phone: [phone] Visit Id: Visit Reason: Diarrhea; Nausea; Abdominal [...] 03/08/2024 15:41:51 03/08/2024 15:41:51 03/08/2024 15:41:51 ADDRESS: [address] [place] [phone] PHYS DOC NOTES: MEDICAL INFORMATION: Prescriptions Given: New Medications [facility]/pharmacy #[id number], [address] [place], [place] [id number], [phone] acetaminophen-oxycodo ne (Percocet 5 mg-325 mg oral tablet) 1 Tablets By Mouth every 6 hours as needed as needed for pain. Refills: 0. Medications to Continue Taking That Have Changed [facility]/pharmacy #[id number], [address], [place] [id number], [phone] START: predniSONE (predniSONE 10 mg Tab) Take [...] 1:Abdominal pain; 2:Exacerbation of Crohn's disease Normal [facility] ED Note-Physicianon 03-08-20 ED Note-Physician Basic Information Time Seen: Carolyn Mcmahon M.D. 03/08/2024 09:47 Chief Complaint patient presents with lower abdominal pain x 5 days with nausea and diarrhea. states that she was seen here on saturday- with stomach bug- pain increasing since. denies [...] patient states that she is approved for [employer]. She is currently on prednisone 20 mg [...] and Complexity of Problems Differential Diagnosis: [] [facility] Data External documents reviewed: [] My EKG [...] Abdominal pain (R10.9: Unspecified abdominal pain) Ordered: acetaminophen-oxycodo ne, 1 tab(s), Oral, q6hr as needed for pain, 12 tab(s), Refill(s) 0, [id number], 167, cm, 03/08/24 9:51:00 EDT, Height/Length Dosing, [...] Chloride 0.9 (more content not included)... Normal [facility] Comment on above: Result Comment: Elec tronically [...] these instructions at home: Medicines ? Take imwd-jvp-snkbzlu and prescription medicines only as told by [...] your condition for any changes. ? Take ifbu-qks-xskcxmc and prescription medicines only as told by [...] provider. Document Revised: 10/28/2020 Document Reviewed: 01/18/2020 [employer] Patient Education ? 2022 [employer]. Immunology Crohn's Disease Crohn's disease is a [...] sample tests. (more content not included)... Normal [facility] ED Patient Summaryon 024 ED Patient Summary [place] [id number] Patient Discharge Instructions Person Information Name: ROLA AGUILAR Age: 28 Years Arrival Date: 03/08/2024 09:39:02 Discharge Diagnosis: 1:Abdominal pain; 2:Exacerbation of Crohn's disease Primary Care Physician: NONE, XXXX Provider Information Primary Provider: Lisandro Mishra, Carolyn Drake Advanced Implementation Lead:None The exam and treatment you received in the Emergency Department were for an urgent problem and are not intended as complete care. It is important that you follow up with a doctor, nurse practitioner, or physician?s back office medical assistant for ongoing care. If your symptoms become [...] opioids can be used to help relieve xpcmsipx-hb-gzkjng pain and are often prescribed following a [...] guidance from the Food and Drug Administration (www.fda.gov/Drugs/Re sourcesForYou). ? Visit www.cdc.gov/drugoverd ose to learn about the risks of opioids abuse and overdose. ? If you believe you may be struggling with addiction, tell your health career representative an (more content not included)... Normal [facility] HEMATOLOGYOrdered By: SYSTEM SYSTEM on 03-08-2024 Basophils/100 [...] 03-08-2024 Albumin [Mass/Vol] 3.7 g/dL Normal 3.3-5.0 [facility] Comment on above: Performed By: #### 2 [id number] #### [facility] [address] [place] [address] Albumin/Globulin (S) [Mass conc ratio] 1.0 Low 1.1-2.2 [facility] Comment on above: Performed By: #### 2 845938 #### [facility] [address] [place] [address] ALP [Catalytic activity/Vol] 94 Int._Unit/L Normal 21-98 [facility] Comment on above: Performed By: #### 2 [id number] #### [facility] [address] [place] [address] ALT No additional P-5'-P [Catalytic activity/Vol] 11 Int._Unit/L Normal 6-46 [facility] Comment on above: Performed By: #### 2 [id number] #### [facility] [address] [place] [address] AST [Catalytic activity/Vol] 9 Int._Unit/L Normal 5-43 [facility] Comment on above: Performed By: #### 2 [id number] #### [facility] [address] [place] [address] Bilirubin [Mass/Vol] 0.3 mg/dL Normal 0.0-1.[address] [facility] Comment on above: Performed By: #### 2 314366 #### [facility] [address] [place] [address] Bilirubin.direct [Mass/Vol] 0.0 mg/dL Normal 0.0-0.4 [facility] Comment on above: Performed By: #### 2 [id number] #### [facility] [address] [place] [address] Bilirubin.indirect [Mass or moles/Vol] 0.3 mg/dL Normal 0.1-0.9 [facility] Comment on above: Performed By: #### 2 [id number] #### [facility] [address] [place] [address] Globulin (S) [Mass/Vol] 3.7 g/dL Normal 1.4-4.0 [facility] Comment on above: Performed By: #### 2 362912 #### [facility] [address] [place] [address] Protein [Mass/Vol] 7.4 g/dL Normal 6.0-7.8 [facility] Comment on above: Performed By: #### 2 [id number] #### [facility] [address] [place] [address] Lipase Levelon 03-08-2024 Lipase [Catalytic activity/Vol] 31 U/L Normal 13-58 [facility] Comment on above: Performed By: #### 2 [id number] #### [facility] [address] [place] [address] PT & PTTon 03-08-2024 aPTT Coag (PPP) [Time] 30.3 second(s) Normal 25.1-36.5 [facility] Comment on above: Result Comment: Para meter [...] the same coagulation reagent and instrumentation as [facility]. Currently there are no coagulation studies available worldwide for children to 14 days, and no normal ranges. Heparin therapeutic range (represented by Anti-Factor Xa activity of 0.2 - 0.4 U/mL) corresponds to PTT of 56.6 - 109.0 sec. Performed By: #### 1 [id number] #### [facility] [address] [place] [address] INR Coag (PPP) [Relative time] 1.10 {INR} Invalid Interpretation Code [facility] Comment on above: Result Comment: INR results are specifically intended to assess patients stabilized on long-term Anticoagulation therapy suggested INR?s ?Less Intensive Anticoagulation? 2.0 ? 3.0 Conventional Range 3.0 ? 4.5 Performed By: #### 1 [id number] #### [facility] [address] [place] [address] PT Coag (PPP) [Time] 12.3 second(s) Normal 9.4-12.5 [facility] Comment on above: Result Comment: 15 d [...] the same coagulation reagent and instrumentation as [facility]. Currently there are no coagulation studies available worldwide for children to 14 days, and no normal ranges. Performed By: #### 1 [id number] #### [facility] [address] [place] [address] SEROLOGYOrdered By: Rosalba Cadet on 03-08-2024 HCG.beta subunit (U) [Moles/Vol] Negative Normal [facility] Man Sero U BetaHcg Qualon 03-08-2024 HCG.beta subunit (U) [Moles/Vol] Negative Normal [facility] Comment on above: Performed By: #### 2 [id number] #### [facility] [address] [place] [address] UA with Cult Rflxon 03-08-20 24 Bacteria Auto Ql (U) Trace Normal Trace Fish er [facility] Comment on above: Performed By: #### 4 [id number] #### [facility] [address] [place] [address] Bilirubin Ql (U) Negative Normal Negative [facility] Comment on above: Performed By: #### 4 [id number] #### [facility] [address] [place] [address] Clarity (U) Clear Normal Clear [facility] Comment on above: Performed By: #### 4 [id number] #### [facility] [address] [place] [address] Color (U) Colorless Abnormal Yellow [facility] Comment on above: Result Comment: Micr oscopic readings are only performed on those samples that meet specific criteria set forth by [facility]. Performed By: #### 4 [id number] #### [facility] [address] [place] [address] Epithelial cells.squamous Auto (Urine sed) [#/Area] 0-2 Invalid Interpretation Code [facility] Comment on above: Performed By: #### 4 [id number] #### [facility] [address] [place] [address] Glucose Ql (U) Negative Normal Negative [facility] Comment on above: Performed By: #### 4 [id number] #### [facility] [address] [place] [address] Hemoglobin Auto test strip (U) [Mass/Vol] Negative Normal Negative [facility] Comment on above: Performed By: #### 4 [id number] #### [facility] [address] [place] [address] Ketones Auto test strip Ql (U) Negative Normal Negative [facility] Comment on above: Performed By: #### 4 [id number] #### [facility] [address] [place] [address] Leukocyte esterase Auto test strip Ql (U) 25 Cristela/uL Normal Negative [facility] Comment on above: Performed By: #### 4 [id number] #### [facility] [address] [place] [address] Mucus Auto Ql (U) Negative Normal Negative [facility] Comment on above: Performed By: #### 4 [id number] #### [facility] [address] [place] [address] Nitrite Auto test strip Ql (U) Negative Normal Negative [facility] Comment on above: Performed By: #### 4 [id number] #### [facility] [address] [place] [address] pH (U) 5.5 [pH] Invalid Interpretation Code 5.0-9.0 [facility] Comment on above: Performed By: #### 4 [id number] #### [facility] [address] [place] [address] Protein Ql (U) Negative Normal Negative [facility] Comment on above: Performed By: #### 4 [id number] #### [facility] [address] [place] [address] RBC Ql (U) 0-3 Normal 0-3 [facility] Comment on above: Performed By: #### 4 [id number] #### [facility] [address] [place] [address] Specific gravity (U) [Rel density] 1.007 Invalid Interpretation Code 1.005-1.030 [facility] Comment on above: Performed By: #### 4 [id number] #### [facility] [address] [place] [address] Urobilinogen (U) [Mass/Vol] Negative Normal Negative [facility] Comment on above: Performed By: #### 4 [id number] #### [facility] [address] [place] [address] WBC Auto (Urine sed) [#/Area] 0-5 Normal 0-5 [facility] Comment on above: Performed By: #### 4 [id number] #### [facility] [address] [place] [address] Type of Urine collection method Clean Catch Normal [facility] Comment on above: Performed By: #### [id number] #### [facility] [address] [place] [address] URINALYSISOrdered By: SYSTEM SYSTEM on 03-08-2024 Bacteria [...] that meet specific criteria set forth by [facility]. Epithelial cells.squamous Auto (Urine sed) [#/Area] [...] 03-08-2024 eGFR 120 mL/min/1.73 m2 Normal >=59 [facility] Comment on above: Order Comment: Order added by Discern Expert. Performed By: #### 1 [id number] #### [facility] [address] [place] [address] C Urineon 03-06-2024 Bacteria identified Cx Nom [...] Locations R1: This test was performed at: [facility], [address] [place] [address], [id number] , , Normal [facility] Comment on above: Performed By: #### [id number] #### [facility] [address] [place] [id number] B hCG [facility] 03-04-2024 Beta HCG ( test) Ql Negative Normal [facility] Comment on above: Performed By: #### 2 [id number] #### [facility] [address] [place] [address] BMPon 03-04-2024 Anion gap [Moles/Vol] 13 mmol/L Normal 6-16 [facility] Comment on above: Performed By: #### 2 [id number] #### [facility] [address] [place] [address] Calcium [Mass/Vol] 9.4 mg/dL Normal 8.9-11.1 [facility] Comment on above: Performed By: #### 2 [id number] #### [facility] [address] [place] [address] Chloride [Moles/Vol] 102 mmol/L Normal 101-[address] [facility] Comment on above: Performed By: #### 2 [id number] #### [facility] [address] [place] [address] CO2 [Moles/Vol] 26 mmol/L Normal 21-31 [facility] Comment on above: Performed By: #### 2 [id number] #### [facility] [address] [place] [address] Creatinine [Mass/Vol] 0.7 mg/dL Normal 0.5-1.3 [facility] [facility] Comment on above: Performed By: #### 2 [id number] #### [facility] [address] [place] [address] Glucose [Mass/Vol] 99 mg/dL Normal 55-199 [facility] Comment on above: Performed By: #### 2 [id number] #### [facility] [address] [place] [address] Potassium [Moles/Vol] 3.6 mmol/L Normal 3.5-5.3 [facility] Comment on above: Performed By: #### 2 [id number] #### [facility] [address] [place] [address] Sodium [Moles/Vol] 137 mmol/L Normal 135-145 [facility] Comment on above: Performed By: #### 2 [id number] #### [facility] [address] [place] [address] Urea nitrogen [Mass/Vol] 7 mg/dL Normal 5-21 [facility] Comment on above: Performed By: #### 2 [id number] #### [facility] [address] [place] [address] Urea nitrogen/Creatinine [Mass ratio] 10 No Units Normal 10-20 [facility] Comment on above: Performed By: #### 2 [id number] #### [facility] [address] [place] [address] CBC w/ Auto Diffon 4 Basophils/100 WBC (Bld) 0.1 % Normal 0.0-2.0 [facility] Comment on above: Performed By: #### 2 [id number] #### [facility] [address] [place] [address] Basophils/Leukocytes Auto (Bld) [Pure # fraction] 0.0 E9/L Normal 0.0-0.2 [facility] Comment on above: Performed By: #### 2 049221 #### [facility] [address] [place] [address] Eosinophils (Bld) [#/Vol] 0.1 E9/L Normal 0.0-0.5 [facility] Comment on above: Performed By: #### 2 294697 #### [facility] [address] [place] [address] Eosinophils/100 WBC (Bld) 0.8 % Normal 0.0-8.0 [facility] Comment on above: Performed By: #### 2 680010 #### [facility] [address] [place] [address] Erythrocyte distribution width (RBC) [Ratio] 17.0 % High 10.9-14.2 [facility] Comment on above: Performed By: #### 2 110541 #### [facility] [address] [place] [address] Hematocrit (Bld) [Volume fraction] 38.6 % Normal 34.0-46.0 [facility] Comment on above: Performed By: #### 2 021962 #### [facility] [address] [place] [address] Hemoglobin (Bld) [Mass/Vol] 12.8 g/dL Normal 12.0-16.0 [facility] Comment on above: Performed By: #### 2 753571 #### [facility] [address] [place] [address] Lymphocytes (Bld) [#/Vol] 1.6 E9/L Normal 1.0-4.0 [facility] Comment on above: Performed By: #### 2 187585 #### [facility] [address] [place] [address] Lymphocytes/100 WBC (Bld) 16.0 % Normal 14.0-50.0 [facility] Comment on above: Performed By: #### 2 112888 #### [facility] [address] [place] [address] MCH (RBC) [Entitic mass] 26.9 pg Low 27.0-34.0 [facility] Comment on above: Performed By: #### 2 066691 #### [facility] [address] [place] [address] MCHC (RBC) [Mass/Vol] 33.2 g/dL Normal 31.4-36.0 [facility] Comment on above: Performed By: #### 2 552627 #### [facility] [address] [place] [address] MCV (RBC) [Entitic vol] 81.1 fL Normal 80.0-100.0 [facility] Comment on above: Performed By: #### 2 185680 #### [facility] [address] [place] [address] Monocytes (Bld) [#/Vol] 0.9 E9/L Normal 0.2-1.0 [facility] Comment on above: Performed By: #### 2 495698 #### [facility] [address] [place] [address] Neutrophils (Bld) [#/Vol] 7.2 E9/L Normal 2.0-7.5 [facility] Comment on above: Performed By: #### 2 504335 #### [facility] [address] [place] [address] Neutrophils/100 WBC (Bld) 74.2 % Normal 36.0-75.0 [facility] Comment on above: Performed By: #### 2 062315 #### [facility] [address] [place] [address] Platelet 410.0 E9/L Normal 150.0-500.0 [facility] Comment on above: Performed By: #### 2 868113 #### [facility] [address] [place] [address] Platelet mean volume (Bld) [Entitic vol] 7.2 fL Normal 6.4-10.8 [facility] Comment on above: Performed By: #### 2 557767 #### [facility] [address] [place] [address] RBC (Bld) [#/Vol] 4.8 E12/L Normal 4.3-5.9 [facility] Comment on above: Performed By: #### 2 974957 #### [facility] [address] [place] [address] WBC corrected for nucl RBC Auto (Bld) [#/Vol] 9.8 E9/L Normal 4.0-11.0 [facility] Comment on above: Performed By: #### 2 903089 #### [facility] [address] [place] [address] CHEMISTRYOrdered By: SYSTEM SYSTEM on 03-04-2024 Albumin [...] 13 mmol/L Normal 6 - 16 mEq/L R emisol Chem AST [Catalytic activity/Vol] 9 [iU]/d Normal [...] Consent for Treatmenton 02-21 Consent for Treatment [id number] .00TIFF Normal [facility] Discharge Instructionson Discharge Instructions [id number] 1.00TIFF Normal [facility] ED Clinical Summaryon 2023 ED Clinical Summary [place] [id number] ED Clinical Summary Person Information Name: ROLA AGUILAR [facility] Age: 28 Years : 1995 Sex: Female Language: Honduran PCP: NONE, XXXX Marital Status: Single Phone: [phone] Visit Id: Visit Reason: Skin problem; Diarrhea; [...] 03/04/2024 13:13:47 03/04/2024 13:13:47 03/04/2024 13:13:47 ADDRESS: [address] [place] [id number] PHYS DOC NOTES: MEDICAL INFORMATION: Prescriptions Given: New Medications [facility]/pharmacy #[id number], [address] [place], [place] [id number], [phone] dicyclomine (Bentyl 10 mg Cap) 2 Capsules By Mouth 4 times a day. Refills: 0. Medications to Continue Taking That Have Changed [facility]/pharmacy #[id number], [address] [place], [place] [id number], [phone] START: ondansetron (Zofran ODT 4 mg Tab-Dis) [...] pain; 2:Vomiting and diarrhea; Diarrhea, unspecified Normal [facility] ED Note-Physicianon 03-04-20 ED Note-Physician Basic Information [...] states she had a in October at [facility]. She states look like the scar [...] and Complexity of Problems Differential Diagnosis: [] [facility] Data External documents reviewed: [] My EKG [...] QID, # 20 cap(s), Refills(s) 0, Pharmacy: [facility]/pharmacy #[id number], 167, cm, 03/04/24 9:30:00 EDT, [...] Nausea/Vomiting, # 12 tab(s), Refills(s) 0, Pharmacy: [facility]/pharmacy #[id number], 167, cm, 03/04/24 9:30:00 EDT, Height/Length Dosing, 82.6, kg, 03/04/24 9:30:00 EDT, Weight Dosing Sodiu (more content not included)... Normal [facility] Comment on above: Result Comment: Elec tronically Signed By: Lisandro Mishra, Carolyn Drake\.br\Date and Time Signed: 03/04/24 13:44 EDT ED [...] added (diluted fruit juice). ? Eat bland, zlxu-wd-yakgtb foods in small amounts as you are able. These foods include bananas, applesauce, rice, lean meats, toast, and crackers. ? Avoid fluids that contain a lot of sugar or caffeine, such as energy drinks, sports drinks, and soda. ? Avoid alcohol. ? Avoid spicy or fatty foods. General instructions ? Take mtvl-krr-iewzpvt and prescription medicines only as told by your health care provider. ? Drink enough fluid to keep your urine pale yellow. ? Wash your hands often using soap and water for at least 20 seconds. If soap and water are not available, use hand head of digital advertising & integration. ? Make sure that everyone in your [...] and drinking to prevent dehydration. ? Take xffv-dff-mpzqrwv and prescription medicines only as told by [...] provider. Document Revised: 03/16/2022 Document Reviewed: 03/16/2022 [employer] Patient Education ? 2022 [employer]. Abdominal Pain, Adult Pain in the abdomen [...] these instructions at home: Medicines ? Take nhsf-cbs-kdsinpj and prescription medicines only as told by your health care provider. ? Do not take a laxative unless told by your health care provider. General instructions ? Watch your condition for any changes. ? Drink enough fluid to keep your urine pale yellow. ? Keep all follow-up visits as told by your h (more content not included)... Normal [facility] ED Patient Summaryon 024 ED Patient Summary [address] [address] Patient Discharge Instructions Person Information Name: ROLA AGUILAR Age: 28 Years Arrival Date: 03/04/2024 09:14:32 Discharge Diagnosis: 1:Abdominal pain; 2:Vomiting and diarrhea; Diarrhea, unspecified Primary Care Physician: NONE, XXXX Provider Information Primary Provider: Lisandro Mishra, Carolyn Drake Advanced Implementation Lead:None The exam and treatment you received in the Emergency Department were for an urgent problem and are not intended as complete care. It is important that you follow up with a doctor, nurse practitioner, or physician?s back office medical assistant for ongoing care. If your symptoms become [...] opioids can be used to help relieve mkujfiiw-wo-eyypcs pain and are often prescribed following a [...] guidance from the Food and Drug Administration (www.fda.gov/Drugs/Re sourcesForYou). ? Visit www.cdc.gov/drugoverd ose to learn about the risks of opioids abuse and overdose. ? If you believe you may be (more content not included)... Normal [facility] HEMATOLOGYOrdered By: SYSTEM SYSTEM on 03-04-2024 Basophils/100 [...] 03-04-2024 Albumin [Mass/Vol] 4.0 g/dL Normal 3.3-5.0 [facility] Comment on above: Performed By: #### 2 [id number] #### [facility] [address] [place] [address] Albumin/Globulin (S) [Mass conc ratio] 1.0 Low 1.1-2.2 [facility] Comment on above: Performed By: #### 2 927914 #### [facility] [address] [place] [address] ALP [Catalytic activity/Vol] 91 Int._Unit/L Normal 21-98 [facility] Comment on above: Performed By: #### 2 658495 #### [facility] [address] [place] [address] ALT No additional P-5'-P [Catalytic activity/Vol] 15 Int._Unit/L Normal 6-46 [facility] Comment on above: Performed By: #### 2 095752 #### [facility] [address] [place] [address] AST [Catalytic activity/Vol] 9 Int._Unit/L Normal 5-43 [facility] Comment on above: Performed By: #### 2 088103 #### [facility] [address] [place] [address] Bilirubin [Mass/Vol] 0.7 mg/dL Normal 0.0-1.[address] [facility] Comment on above: Performed By: #### 2 155900 #### [facility] [address] [place] [address] Bilirubin.direct [Mass/Vol] 0.1 mg/dL Normal 0.0-0.4 [facility] Comment on above: Performed By: #### 2 994329 #### [facility] [address] [place] [address] Bilirubin.indirect [Mass or moles/Vol] 0.6 mg/dL Normal 0.1-0.9 [facility] Comment on above: Performed By: #### 2 854794 #### [facility] [address] [place] [address] Globulin (S) [Mass/Vol] 3.9 g/dL Normal 1.4-4.0 [facility] Comment on above: Performed By: #### 2 044488 #### [facility] [address] [place] [address] Protein [Mass/Vol] 7.9 g/dL High 6.0-7.8 [facility] Comment on above: Performed By: #### 2 312504 #### [facility] [address] [place] [address] Lipase Levelon 03-04-2024 Lipase [Catalytic activity/Vol] 36 U/L Normal 13-58 [facility] Comment on above: Performed By: #### 2 068160 #### [facility] [address] [place] [address] Magnesiumon 03-04-2024 Magnesium [Mass/Vol] 1.6 mg/dL Normal 1.3-2.[address] [facility] Comment on above: Performed By: #### 2 910510 #### [facility] [address] [place] [address] SEROLOGYOrdered By: Nessa patino on 03-04-2024 Beta HCG ( test) Ql Negative (03/04/24 9:44 AM) Normal [facility] Man Sero UA with Cult Rflxon 03-04-20 24 Bacteria Auto Ql (U) Trace Normal Trace [facility] Comment on above: Performed By: #### 4 [id number] #### [facility] [address] [place] [address] Bilirubin Ql (U) Negative Normal Negative [facility] Comment on above: Performed By: #### 4 [id number] #### [facility] [address] [place] [address] Clarity (U) Turbid Abnormal Clear [facility] Comment on above: Performed By: #### 4 [id number] #### [facility] [address] [place] [address] Color (U) Light-Yellow Normal Yellow [facility] Comment on above: Result Comment: Micr oscopic readings are only performed on those samples that meet specific criteria set forth by [facility]. Performed By: #### 4 [id number] #### [facility] [address] [place] [address] Epithelial cells.squamous Auto (Urine sed) [#/Area] 3-4 Invalid Interpretation Code [facility] Comment on above: Performed By: #### 4 [id number] #### [facility] [address] [place] [address] Glucose Ql (U) Negative Normal Negative [facility] Comment on above: Performed By: #### 4 [id number] #### [facility] [address] [place] [address] Hemoglobin Auto test strip (U) [Mass/Vol] Negative Normal Negative [facility] Comment on above: Performed By: #### 4 [id number] #### [facility] [address] [place] [address] Ketones Auto test strip Ql (U) Negative Normal Negative [facility] Comment on above: Performed By: #### 4 [id number] #### [facility] [address] [place] [address] Leukocyte esterase Auto test strip Ql (U) 75 Cristela/uL Abnormal Negative [facility] Comment on above: Performed By: #### 4 [id number] #### [facility] [address] [place] [address] Mucus Auto Ql (U) Trace Normal Negative [facility] Comment on above: Performed By: #### 4 [id number] #### [facility] [address] [place] [address] Nitrite Auto test strip Ql (U) Negative Normal Negative [facility] Comment on above: Performed By: #### 4 [id number] #### [facility] [address] [place] [address] pH (U) 6.0 [pH] Invalid Interpretation Code 5.0-9.0 [facility] Comment on above: Performed By: #### 4 [id number] #### [facility] [address] [place] [address] Protein Ql (U) Negative Normal Negative [facility] Comment on above: Performed By: #### 4 [id number] #### [facility] [address] [place] [address] RBC Ql (U) 0-3 Normal 0-3 [facility] Comment on above: Performed By: #### 4 [id number] #### [facility] [address] [place] [address] Specific gravity (U) [Rel density] 1.006 Invalid Interpretation Code 1.005-1.030 [facility] Comment on above: Performed By: #### 4 [id number] #### [facility] [address] [place] [address] Urobilinogen (U) [Mass/Vol] Negative Normal Negative [facility] Comment on above: Performed By: #### 4 [id number] #### [facility] [address] [place] [address] WBC Auto (Urine sed) [#/Area] 6-15 Abnormal 0-5 [facility] Comment on above: Performed By: #### 4 [id number] #### [facility] [address] [place] [address] Type of Urine collection method Clean Catch Normal [facility] Comment on above: Performed By: #### 4 [id number] #### [facility] [address] [place] [address] URINALYSISOrdered By: SYSTEM SYSTEM on 03-04-2024 Bacteria Auto Ql (U) Trace /HPF Normal Trace/HPF [facility] UA Auto SS Bilirubin Ql (U) Negative Normal Negativemg/dL [facility] UA Auto SS Clarity (U) Turbid *ABN* (03/04/24 11:16 AM) Invalid Interpretation Code Clear [facility] UA Auto SS Color (U) Light-Yellow 1 (03/04/24 11:16 AM) Normal Yellow [facility] UA Auto SS Comment on above: Interpretive Data: M icroscopic readings are only performed on those samples that meet specific criteria set forth by [facility]. Epithelial cells.squamous Auto (Urine sed) [#/Area] 3-4 graded/HPF Invalid Interpretation Code [facility] UA Auto SS Glucose Ql (U) Negative Normal Negativemg/dL [facility] UA Auto SS Hemoglobin Auto test strip (U) [Mass/Vol] Negative Normal Negativemg/dL [facility] UA Aut o SS Ketones Auto test [...] SS Protein Ql (U) Negative Normal Negativemg/dL [facility] UA Auto SS RBC Ql (U) 0-3 graded/HPF Normal 0-3graded/HPF [facility] UA Auto SS Specific gravity (U) [Rel density] 1.006 *NA* (03/04/24 11:16 AM) Invalid Interpretation Code 1.005 - 1.030 [facility] UA Auto SS Urobilinogen (U) [Mass/Vol] Negative Normal Negativemg/dL [facility] UA Auto SS WBC Auto (Urine sed) [#/Area] 6-15 graded/HPF Invalid Interpretation Code 0-5graded/HPF [facility] UA Auto SS URINALYSISOrdered By: Carolyn Mcmahon on 03-04-2024 UA Spec Desc Clean Catch (03/04/24 11:16 AM) Normal [facility] UA Auto SS eGFRon 03-04-2024 eGFR 120 mL/min/1.73 m2 Normal >=59 [facility] Comment on above: Order Comment: Order added by Discern Expert. Performed By: #### 1 [id number] #### [facility] [address] [place] [address] Patient Educationon 03-01-20 Patient Education Immunology Crohn's [...] specializes in diseases of the digestive tract (diet tech). How is this treated? There is no [...] these instructions at home: Medicines ? Take gars-yyh-lvawgnn and prescription medicines only as told by [...] contain jonny (more content not included)... Normal [facility] Ciro 02-26-2024 AMAURY Telephone (DEB) ROLA AGUILAR ([id number]) 1995 F Date Time Provider Department 02/26/24 LEE ANN HUMPHRIES During your visit today, we recorded the following information about you: Brittny Gan RN 02/26/2024 3:05 PM Signed I spoke with Rola yesterday in [place] to discuss process for Entyvio ordering Advised pens will be sent to [facility] for insurance approval Plan for loading dose of infusions on week 0, 2 and 6 will also be sent to insurance Once approval comes back for both infusion and pen we can schedule the infusions at [facility] Advised patient I will be in contact with her on the status SHAHBAZ Blum Christina, RN 03/05/2024 3:04 PM Signed PA on Entyvio infusions still pending Will check status on 03/09/24 SHAHBAZ Blum Christina, RN 03/09/2024 1:26 PM Signed [facility] scheduling team: Please schedule the following Entyvio infusion Infusions to be given on week 0, 2 and 6 ( week of 03/09, 03/23, 04/20) Please call patient with appt details Thank you Brittny Gan RN [facility] Scheduling team: Please schedule the following May with Doctor Diana Please call patient with appt details Thank you Brittny Gan RN I spoke with Rola advised plan has been approved Entyvio infusion week 0, 2 and 6 ( week of 03/09, 03/23, 04/20) Pen to start week 14 (06/15/24) I would have scheduling call her to arrange appts Message routed to [facility] so they are aware for delivery of pen Rola verbalized understanding No further questions Brittny Gan RN Auth/Cert 03/09/2024 11:49 AM Bandar Davalos - - Note: === PHARMACY TEAM ==== APPROVAL RECEIVED Benefit Type: Medical Insurance [facility] Servicing Location Tax ID: [id number](NPI:[id number]) Authorization received via fax Drug Name(s) AND HCPCS Code(s): J3380 (HCPCS) - INJECTION, VEDOLIZUMAB Approval Date Range: 02-27-2024 to 05-29-2024 Approval #: [id number] Dose AND Frequency: 300mg weeks 0,2,6 # Visits/Treatments (if applicable): 3 Temporary Site of Care Approval: N/A Ira Wilder 03/09/2024 1:59 PM Signed Infusion scheduled . 03/12. Requested to schedule subsequent visits when she is here. Scheduled follow up with Dr. 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 Normal [facility] CNOVon 02-25-2024 CNOV Office Visit ([facility] ) LAURENROLA ([id number]) 1995 F Date Time Provider Department 02/25/24 3:20 PM LEE ANN HUMPHRIES [facility] During your visit today, we recorded [...] (L) 135 (more content not included)... Normal [facility] HISTORY PHYSICALon HISTORY PHYSICAL HNO ID: [id number] Author: LEE ANN HUMPHRIES, DO Service: ? [...] IU/mL 0.0 (more content not included)... Normal [facility] ANES POSTPROC EVALon 024 ANES POSTPROC EVAL HNO ID: [id number] Author: SID ARTEAGA DO Service: Anesthesiology Author Type: Anesthesiologist Type: Anesthesia Postprocedure Evaluation Filed: 01/21/2024 09:35 Note Text: POST ANESTHESIA EVALUATION NOTE : 1995 Procedure Summary Date: 01/20/24 Room / Location: [facility] Endoscopy - ENDO Anesthesia Start: 1035 Anesthesia Stop: 1117 Procedures: ILEOSCOPY COLONOSCOPY DIAGNOSTIC Diagnosis: (Inflammatory bowel [...] Documentation SIGNATURE: Sid Arteaga DO PATIENT NAME: Rola Aguilar DATE: January 21, 2024 TIME: 9:35 AM CSN: [id number] Normal [facility] ANES PRE-OPon 01-20-2024 ANES PRE-OP HNO ID: [id number] Author: SID ARTEAGA DO Service: Anesthesiology Author Type: Anesthesiologist Type: Anesthesia Preprocedure Evaluation Filed: 01/20/2024 09:22 Note Text: ANESTHESIOLOGY DAY OF SURGERY NOTE : 1995 Procedure Information Date/Time: 01/20/2415 Scheduled providers: Lee Ann Humphries DO; Sid Arteaga DO; Jorje Loyd AA Procedures: ILEOSCOPY COLONOSCOPY DIAGNOSTIC Location: [facility] Endoscopy - ENDO Estimated body mass [...] and consent discussed: yes. Patient / Responsible Democrat agrees to proceed: yes Patient / Surrogate agrees to blood products: Yes Significant changes in the patient condition since the History and Physical, not otherwise documented in primary service progress note: no. Potential Anesthesia issues that may suggest increased risk of complications or contraindication to planned procedure: none. Vitals Value Taken Time BP 150/91 01/20/24 0854 Pulse 53 01/20/24 0854 Resp 18 01/20/24 0854 Temp 36.2 ?C (97.2 ?F) 01/20/24 0854 SpO2 99 % 01/20/24 0854 Facility-Administered Medications as of 01/20/2024 Medication Dose [...] not taking: Reported on 01/18/2024) - VIT 46-PZOS-AIOYO-DHA ORAL Take by mouth. (Patient not taking: Reported on 01/18/2024) I have interviewed and examined the patient. I have reviewed the medical record and/or the pre-anesthesia evaluation, pertinent labs, and test results. This contains updated information obtained within 48 hours of Surgery/Procedure. SIGNATURE: Sid Arteaga DO PATIENT NAME: Rola Aguilar DATE: January 20, 2024 TIME: 9:22 AM CSN: [id number] [facility] 01-20-2024 [facility] HNO ID: [id number] Author: JOSE CRONIN MD Service: ? Author [...] section 10/24/23. Has seen [facility] but not since 03/05/2023 and most recently [...] she d (more content not included)... Normal [facility] Ciro 01-20-2024 AMAURY Telephone ([facility]) ROLA AGUILAR ([id number]) 1995 F Date Time Provider Department 01/20/24 ANGEL JAQUEZ [facility] During your visit today, we recorded the following information about you: Angel Jaquez PA-C 01/20/2024 1:51 PM Signed Hi! The patient needs to follow-up with any GI that is available for Crohn's colitis with diverting loop ileostomy. Please arrange with first available provider. Thanks! Angel Jaquez PA-C Gastroenterology and Hepatology Jenn Santiago, LORENA.MANAGER STORAGE 01/20/2024 4:37 PM Signed Just to provide [...] call patient with appt details Thank you SHAHBAZ Blum Alyssa 01/21/2024 2:56 PM Signed LVM offering appt of February 24. Bill Fernandez 01/23/2024 11:17 AM Signed Pt is scheduled in the February 24 3:20pm slot held for her per message below. Thank you, Allergies As of Date: 01/20/2024 Noted Allergy Reaction HYDROMORPHONE 05/26/2023 9 - Itching Date Reviewed: 01/20/2024 Reviewed by: Blaire Birmingham, SHAHBAZ - Fully Assessed Reason for Visit: Appointment [...] 07/27/2023 08/01/2023 General counseling and advice for contraceptive* 023 10/24/2023 Abdominal pain [R10.9] 08/19/2023 10/27/2023 Crohn's [...] Status:Closed by BILL FERNANDEZ on 01/23/24 Normal [facility] [facility]2024 Colonoscopy [facility] Gastrointestinal Endoscopy Patient Name: Rola Aguilar Procedure Date: 01/20/2024 10:02 AM Date of : 1995 Admit Type: Inpatient Age: 28 Room: [place] [address] Gender: Female Note Status: Finalized Attending MD: Lee Ann Humphries MD, [id number] Procedure: Colonoscopy Indications: Crohn's disease Providers: Lee [...] saturations were monitored continuously. The PCF H190L [id number] was introduced through the anus with the [...] specimen was done by the nurse and wildlife biology technician using the patient's name, date and [...] the patient. 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 Normal [facility] Ileoscopyon 01-20-2024 Ileoscopy [facility] Gastrointestinal Endoscopy Patient Name: Rola Aguilar Procedure Date: 01/20/2024 10:07 AM Date of : 1995 Admit Type: Inpatient Age: 28 Room: [place] [address] Gender: Female Note Status: Finalized Attending MD: Lee Ann Humphries MD, [id number] Procedure: Ileoscopy Indications: Inflammatory bowel disease Providers: Lee Ann Humphries MD, Blaire Wallace, SHAHBAZ, Dawna Torrez, SHAHBAZ (Assisting Nurse) Patient Profile: [...] saturations were monitored continuously. The PCF H190L [id number] was introduced through the ileostomy and advanced [...] specimen was done by the nurse and wildlife biology technician using the patient's name, date and [...] colonoscopy today. Procedure Code(s): --- Professional --- 82392, Ileoscopy, through stoma; with biopsy, single or multiple Diagnosis Code(s): --- Professional --- K50.00, Crohn's disease of small intestine without complications K52.3, Indeterminate colitis CPT copyright 2020 [employer]. All rights reserved. The codes documented in this report are preliminary and upon binitrotoluene operator review may be revised to meet current compliance requirements. Attending Participation: I personally performed the entire procedure. Scope In: 10:44:44 AM Scope Out: 10:53:29 AM MD Lee Ann Hilario MD 01/20/2024 10:55:39 AM This report has been signed electronically by Lee Ann Humphires MD Number of Addenda: 0 Note Initiated On: 01/20/2024 10:07 AM Estimated Blood Loss: Estimated blood loss was minimal. [facility] NURSING PROGon 01-20-2024 NURSING PROG HNO ID: [id number] Author: BLAIRE BIRMINGHAM RN Service: Nursing Author [...] (RECOMMENDATION): None Electronically Signed By: Blaire Birmingham [facility] NURSING PROG HNO ID: [id number] Author: JIMENEZ DEXTER RN Service: Nursing Author Type: Registered Nurse Type: Nursing Progress Note Filed: 01/20/2024 08:58 Note Text: PATIENT EDUCATION TOPIC: PROCEDURE / SURGERY: Procedure/Surgery: colonoscopy PATIENT NAME: Rola Aguilar PATIENT LOCATION: [facility] ENDO POOL/[facility] ENDO POOL READINESS TO LEARN COGNITIVE ABILITY: Alert and oriented MOTIVATION TO LEARN: Interested FAMILY SUPPORT: None - Unavailable/disintere sted INSTRUCTION PROVIDED TO: Patient PATIENT LEARNS BEST [...] REFERRAL (RECOMMENDATION): None Electronically Signed By: Jimenez Wallace [facility] SURGICAL PATHOLOGYon 024 CASE REPORT [facility] Comment on above: Order Comment: Speci men Type: TISSUE SPECIMENOrdering Facility: [facility] Address: [address] [place] [address] Result Comment: Surg ical Pathology Report Case: [id number] Authorizing Provider: Lee Ann Humphries DO Collected: 01/20/2024 10:48 AM Ordering Location: [facility] Received: 01/20/2024 11:32 AM Endoscopy - ENDO Pathologist: Gifty Viveros MD Specimens: A) - Small Bowel, Ileum, Biopsy, eval for chrons B) - Colon, Rectosigmoid, Biopsy, eval for chrons Performed By: #### S ####[facility] LABORATORYCLIA [id number] [address] LABCLIA [id number] [address] FINAL DIAGNOSIS [facility] Comment on above: Order Comment: Speci men Type: TISSUE SPECIMENOrdering Facility: [facility] Address: [address] [place] [address] Result Comment: A. S mall bowel, ileum, biopsy: - Chronic minimally inflamed enteritis; negative for pyloric gland metaplasia or dysplasia. B. Colon, rectosigmoid, biopsy: - Chronic mildly inflamed colitis; negative for dysplasia. Performed By: #### S ####[facility]ORATORYCLIA [id number] [address] LABCLIA [id number] [address] FINAL PERFORMING LAB [facility] Comment on above: Order Comment: Speci men Type: TISSUE SPECIMENOrdering Facility: [facility] Address: [address] [place] [address] Result Comment: Diag nostic interpretation performed at [facility], [place] [id number] CLIA# [id number] Circuit Manager: Gifty Viveros M.D. Performed By: #### S ####[facility] LABORATORYCLIA [id number] [address] STATES OF [facility] LABCLIA [id number] [address] GROSS DESCRIPTION Normal [facility] Comment on above: Order Comment: Speci men Type: TISSUE SPECIMENOrdering Facility: [facility] Address: [address] [place] [address] Result Comment: A. S mall Bowel, Ileum, Biopsy Received in formalin are multiple pieces of smith, soft tissue aggregating to 0.8 x 0.2 x 0.1 cm. Totally submitted in one cassette. B. Colon, Rectosigmoid, Biopsy Received in formalin are multiple pieces of smith, soft tissue aggregating to 1.3 x 0.2 x 0.1 cm. Totally submitted in one cassette. Gross examination performed at [facility], [address] [place] [address] AMS January 20, 2024 4:13 PM Performed By: #### S ####[facility]ORATORYCLIA [id number] [address] LABCLIA [id number] [address] [place] CBC panel Auto (Bld)on 01-18 Erythrocyte distribution width (RBC) [Ratio] 13.9 % Normal 11.5-15.0 [facility] Comment on above: Order Comment: Speci men Type: BLOOD SPECIMENOrdering Facility: [facility] Address: [address] [place] [address] Performed By: #### 5 8410-2 ####[facility] LABORATORYCLIA [id number] [address] [place] Hematocrit (Bld) [Volume fraction] 32.7 % Low 36.0-46.0 [facility] Comment on above: Order Comment: Speci men Type: BLOOD SPECIMENOrdering Facility: [facility] Address: [address] [place] [address] Performed By: #### 5 8410-2 ####[facility] LABORATORYCLIA [id number] [place] [address] [place] Hemoglobin (Bld) [Mass/Vol] 10.2 g/dL Low 11.5-15.5 [facility] Comment on above: Order Comment: Speci men Type: BLOOD SPECIMENOrdering Facility: [facility] Address: [address] [place] [address] Performed By: #### 5 8410-2 ####[facility] LABORATORYCLIA [id number] [place] [address] [place] MCH (RBC) [Entitic mass] 26.9 pg Normal 26.0-34.0 [facility] Comment on above: Order Comment: Speci men Type: BLOOD SPECIMENOrdering Facility: [facility] Address: [address] [place] [address] Performed By: #### 5 8410-2 ####[facility] LABORATORYCLIA [id number] [place] [address] [place] MCHC (RBC) [Mass/Vol] 31.2 g/dL Normal 30.5-36.0 [facility] Comment on above: Order Comment: Speci men Type: BLOOD SPECIMENOrdering Facility: [facility] Address: [address] [place] [address] Performed By: #### 5 8410-2 ####[facility] LABORATORYCLIA [id number] [place] [address] [place] MCV (RBC) [Entitic vol] 86.3 fL Normal 80.0-100.0 [facility] Comment on above: Order Comment: Speci men Type: BLOOD SPECIMENOrdering Facility: [facility] Address: [address] [place] [address] Performed By: #### 5 8410-2 ####[facility] LABORATORYCLIA [id number] [place] [id number] [place] Nucleated RBC (Bld) [#/Vol] 10*3/uL Normal <0.01 [facility] Comment on above: Order Comment: Speci men Type: BLOOD SPECIMENOrdering Facility: [facility] Address: [address] [place] [address] Performed By: #### 5 8410-2 ####[facility] LABORATORYCLIA [id number] [place] [id number] [place] Platelet mean volume (Bld) [Entitic vol] 9.8 fL Normal 9.0-12.7 [facility] Comment on above: Order Comment: Speci men Type: BLOOD SPECIMENOrdering Facility: [facility] Address: [address] [place] [address] Performed By: #### 5 8410-2 ####[facility] LABORATORYCLIA [id number] [place] [id number] [place] Platelets (Bld) [#/Vol] 324 10*3/uL Normal 150-400 [facility] Comment on above: Order Comment: Speci men Type: BLOOD SPECIMENOrdering Facility: [facility] Address: [address] [place] [address] Performed By: #### 5 8410-2 ####[facility] LABORATORYCLIA [id number] [place] [address] [place] RBC (Bld) [#/Vol] 3.79 10*6/uL Low 3.90-5.20 [facility] Comment on above: Order Comment: Speci men Type: BLOOD SPECIMENOrdering Facility: [facility] Address: [address] [place] [address] Performed By: #### 5 8410-2 ####[facility] LABORATORYCLIA [id number] [place] [id number] [place] WBC (Bld) [#/Vol] 4.33 10*3/uL Normal 3.70-11.00 [facility] Comment on above: Order Comment: Speci men Type: BLOOD SPECIMENOrdering Facility: [facility] Address: [address] [place] [address] Performed By: #### 5 8410-2 ####[facility] [id number] [address] [place] CONSULTon 01-19-2024 CONSULT HNO ID: [id number] Author: CHUNG GELLER MD Service: Psychiatry Author Type: Physician Type: Consults Filed: 01/19/2024 11:28 Note Text: CL NEW - PSYCHIATRY INITIAL CONSULTATION NOTE SERVICE DATE: January 19, 2024 SERVICE TIME: 11 am CONSULTING SERVICE : Psychiatry, requested by REASON FOR CONSULTATION: Anxiety. Visit Type: In person IDENTIFYING INFO: Ms. Aguilar is a 28 year old female from [place], [place]. HISTORY OF PRESENT ILLNESS : Ms [...] COLLATERAL INFORMATION: FROM CHARTS: Psych consult at [facility] in 2018 preop: -Ms Aguilar denied [...] upset that she may be admitted through [facility], as she was hopeful to be at [...] use or dependence SOCIAL HISTORY: Childhood: From [place], [place] Relationships: Children: daughter and Education: HS Drop-out Employment: [employer] Current supports: parent(s) and friends Legal history: Denied Islam affiliation(s): unknown Abuse history: She denied a [...] Oral Sp (more content not included)... Normal [facility] Comprehensive metabolic 2000 panelon 01-19-2024 Albumin [Mass/Vol] 3.4 g/dL Low 3.9-4.9 [facility] Comment on above: Order Comment: Speci men Type: BLOOD SPECIMENOrdering Facility: [facility] Address: [address] [place] [address] Performed By: #### 2 4323-8, ####[facility] LABORATORYCLIA [id number] [place] [id number] [place] ALP [Catalytic activity/Vol] 84 U/L Normal 34-123 [facility] Comment on above: Order Comment: Speci men Type: BLOOD SPECIMENOrdering Facility: [facility] Address: [address] [place] [address] Performed By: #### 2 4323-8, ####[facility] LABORATORYCLIA [id number] [place] [id number] [place] ALT [Catalytic activity/Vol] 6 U/L Low 7-38 [facility] Comment on above: Order Comment: Speci men Type: BLOOD SPECIMENOrdering Facility: [facility] Address: [address] [place] [address] Performed By: #### 2 4323-8, ####[facility] LABORATORYCLIA [id number] [place] [id number] [place] Anion gap [Moles/Vol] 13 mmol/L Normal 9-18 [facility] Comment on above: Order Comment: Speci men Type: BLOOD SPECIMENOrdering Facility: [facility] Address: [address] [place] [address] Performed By: #### 2 8, ####[facility] LABORATORYCLIA [id number] [place] [id number] [place] AST [Catalytic activity/Vol] 8 U/L Low 13-35 [facility] Comment on above: Order Comment: Speci men Type: BLOOD SPECIMENOrdering Facility: [facility] Address: [address] [place] [address] Performed By: #### 2 4323-04, ####[facility] LABORATORYCLIA [id number] [place] [id number] [place] Bilirubin [Mass/Vol] 0.2 mg/dL Normal 0.2-1.3 [facility] Comment on above: Order Comment: Speci men Type: BLOOD SPECIMENOrdering Facility: [facility] Address: [address] [place] [address] Performed By: #### 2 4323-04, ####[facility] LABORATORYCLIA [id number] [place] [id number] [place] Calcium [Mass/Vol] 9.0 mg/dL Normal 8.5-10.2 [facility] Comment on above: Order Comment: Speci men Type: BLOOD SPECIMENOrdering Facility: [facility] Address: [address] [place] [address] Performed By: #### 2 8, ####[facility] LABORATORYCLIA [id number] [place] [id number] [place] Chloride [Moles/Vol] 104 mmol/L Normal 97-105 [facility] Comment on above: Order Comment: Speci men Type: BLOOD SPECIMENOrdering Facility: [facility] Address: [address] [place] [address] Performed By: #### 2 4322-8, ####[facility] LABORATORYCLIA [id number] [place] [id number] [place] CO2 [Moles/Vol] 21 mmol/L Low 22-30 [facility] Comment on above: Order Comment: Speci men Type: BLOOD SPECIMENOrdering Facility: [facility] Address: [address] [place] [address] Performed By: #### 2 4323-8, ####[facility] LABORATORYCLIA [id number] [place] [id number] [place] Creatinine [Mass/Vol] 0.61 mg/dL Normal 0.58-0.96 [facility] Comment on above: Order Comment: Speci men Type: BLOOD SPECIMENOrdering Facility: [facility] Address: [address] [place] [address] Performed By: #### 2 4323-8, ####[facility] LABORATORYCLIA [id number] [place] [id number] [facility] Creatinine and Glomerular filtration rate.predicted panel (S/P/Bld) 125 mL/min/1.73m??? Normal >=60 [facility] Comment on above: Order Comment: Speci men Type: BLOOD SPECIMENOrdering Facility: [facility] Address: [address] [place] [address] Result Comment: Alysha mated Glomerular Filtration Rate [...] actual GFR. Performed By: #### 2 4323-8, ####[facility] LABORATORYCLIA [id number] [place] [id number] [place] Glucose [Mass/Vol] 124 mg/dL High 74-99 [facility] Comment on above: Order Comment: Speci men Type: BLOOD SPECIMENOrdering Facility: [facility] Address: [address] [place] [address] Result Comment: The [employer] (ADA) provides guidance for cutoff [...] Standards of Medical Care in Diabetes 2016, [employer]. Diabetes Care. 2016.39(Suppl 1). Performed By: #### 2 43211-28, ####[facility] LABORATORYCLIA [id number] [place] [id number] [place] Potassium [Moles/Vol] 4.2 mmol/L Normal 3.7-5.1 [facility] Comment on above: Order Comment: Specblanca [place] Type: BLOOD SPECIMENOrdering Facility: [facility] Address: [address] [place] [address] Performed By: #### 2 4323-04, ####[facility] LABORATORYCLIA [id number] [place] [id number] [place] Protein [Mass/Vol] 6.7 g/dL Normal 6.3-8.0 [facility] Comment on above: Order Comment: Speci men Type: BLOOD SPECIMENOrdering Facility: [facility] Address: [address] [place] [address] Performed By: #### 2 4323-04, ####[facility] LABORATORYCLIA [id number] [place] [id number] [place] Sodium [Moles/Vol] 138 mmol/L Normal 136-144 [facility] Comment on above: Order Comment: Roya men Type: BLOOD SPECIMENOrdering Facility: [facility] Address: [address] [place] [address] Performed By: #### 2 4323-04, ####[facility] LABORATORYCLIA [id number] [place] [id number] [place] Urea nitrogen [Mass/Vol] 6 mg/dL Low 7-21 [facility] Comment on above: Order Comment: Speci men Type: BLOOD SPECIMENOrdering Facility: [facility] Address: [address] [place] [address] Performed By: #### 2 4323-8, 63893-3 ####[facility] LABORATORYCLIA [id number] [place] [id number] [facility] [place] Magnesium SerPl-mCncon 01-18 Magnesium [Mass/Vol] 2.0 mg/dL Normal 1.7-2.3 [facility] Comment on above: Order Comment: Speci men Type: BLOOD SPECIMENOrdering Facility: [facility] Address: [address] [place] [address] Performed By: #### 2 4323-8, 43489-9 ####[facility] LABORATORYCLIA [id number] [place] [id number] [place] NURSING PROGon 01-19-2024 NURSING PROG HNO ID: [id number] Author: YFN JERNIGAN RN Service: Nursing Author Type: Registered Nurse Type: Nursing Progress Note Filed: 01/19/2024 14:26 Note Text: Pt given mirilax and educated about bowel prep for colonoscopy procedure that is scheduled for Saturday. Pt states that will make me sick . Pt encouraged to drink as much as she can tolerate before her procedure to ensure the most accurate results. Normal [facility] ALLIED HEALTHon 01-18-2024 ALLIED HEALTH HNO ID: [id number] Author: MISAEL GODDARD RT(R) Service: Radiology Author Type: Technologist Type: Allied [...] PATIENT PRESENTS WITH AN IMPLANTABLE OR ATTACHED GAS CHECK PAD MAKER: No RADIOLOGY DEPARTMENT: General X-ray: Exam(s) Completed: Chest X-Ray PERIPHERAL IV DATA: Not applicable SIGNED BY: RT Oswaldo(Georges) January 18, 2024 6:50 PM [facility] HNO ID: [id number] Author: SOLIS GUERRA RT(Georges) Service: ? Author Type: Technologist Type: Allied [...] PATIENT PRESENTS WITH AN IMPLANTABLE OR ATTACHED GAS CHECK PAD MAKER: No ALLERGIES: Reviewed and unchanged CONTRAST ALLERGY: [...] DATE: January 18, 2024 TIME: 12:57 AM [facility] BLOOD TB SCREENon 01-18-2024 M. tuberculosis tuberculin stim IFN-g Ql (Bld) Negative [facility] Comment on above: Order Comment: [place] Type: BLOOD SPECIMENOrdering Facility: [facility] Address: [address] [place] [address] Performed By: #### I NFTBP ####[facility] LABCLIA [id number] [place] [address] [place] MITOGEN MINUS NIL 5.93 IU/mL Normal >=0.50 [facility] Comment on above: Order Comment: [place] Type: BLOOD SPECIMENOrdering Facility: [facility] Address: [address] [place] [address] Performed By: #### I NFTBP ####[facility] LABCLIA [id number] [place] [address] [place] TB GAMMA INTERPRETATION Infection with M. tuberculosis complex is unlikely. If latent tuberculosis infection is highly suspected, a negative result does not rule out the infection. Specimens from immunocompromised patients and those <5 years of age may show false negative results. In case of a contact investigation, please repeat 8-12 weeks after a known exposure. [facility] Comment on above: Order Comment: [place] Type: BLOOD SPECIMENOrdering Facility: [facility] Address: [address] [place] [address] Performed By: #### I NFTBP ####[facility] LABCLIA [id number] [place] [address] [place] TB NIL 0.02 IU/mL Normal <=8.00 [facility] Comment on above: Order Comment: Speci men Type: BLOOD SPECIMENOrdering Facility: [facility] Address: [address] [place] [address] Performed By: #### I NFTBP ####[facility] LABCLIA [id number] [place] [address] [facility] [place] TB1 AG MINUS NIL 0.00 IU/mL Normal <0.35 [facility] Comment on above: Order Comment: Speci men Type: BLOOD SPECIMENOrdering Facility: [facility] Address: [address] [place] [address] Performed By: #### I NFTBP ####[facility] LABIA [id number] [address] [place] TB2 AG MINUS NIL 0.00 IU/mL Normal <0.35 [facility] Comment on above: Order Comment: Speci men Type: BLOOD SPECIMENOrdering Facility: [facility] Address: [address] [place] [address] Performed By: #### I NFTBP ####[facility] LABIA [id number] [place] [address] [facility] [place] C diff Tox gens Stl Ql CORONA+p robeon 01-18-2024 C. difficile toxin genes CORONA+probe Ql (Stl) Negative Normal Negative for C. difficile toxin by PCR [facility] Comment on above: Order Comment: Speci men Type: STOOL SPECIMENOrdering Facility: [facility] Address: [address] [place] [address] Performed By: #### 3 8445-3, 50929-8 ####[facility] LABIA [id number] [place] [address] [place] CBC W Auto Differential pane l (Bld)on 01-18-2024 Basophils (Bld) [#/Vol] 0.03 10*3/uL Normal <0.11 [facility] Comment on above: Order Comment: Speci men Type: BLOOD SPECIMENOrdering Facility: [facility] Address: [address] [place] [address] Performed By: #### 5 7021-8 ####[facility] LABORATORYCLIA [id number] [address] [place] Basophils/100 WBC (Bld) 0.5 % Normal [facility] Comment on above: Order Comment: Speci men Type: BLOOD SPECIMENOrdering Facility: [facility] Address: [address] [place] [address] Performed By: #### 5 7021-8 ####[facility] LABORATORYCLIA [id number] [place] [address] [place] Differential cell count method Nom (Bld) Auto Normal [facility] Comment on above: Order Comment: Speci men Type: BLOOD SPECIMENOrdering Facility: [facility] Address: [address] [place] [address] Performed By: #### 5 7021-8 ####[facility] LABORATORYCLIA [id number] [place] [address] [place] Eosinophils (Bld) [#/Vol] 0.15 10*3/uL Normal <0.46 [facility] Comment on above: Order Comment: Speci men Type: BLOOD SPECIMENOrdering Facility: [facility] Address: [address] [place] [address] Performed By: #### 5 7021-8 ####[facility] LABORATORYCLIA [id number] [address] [place] Eosinophils/100 WBC (Bld) 2.3 % Normal [facility] Comment on above: Order Comment: Speci men Type: BLOOD SPECIMENOrdering Facility: [facility] [facility] Address: [address] [place] [address] Performed By: #### 5 7021-8 ####[facility] LABORATORYCLIA [id number] [address] [place] Erythrocyte distribution width (RBC) [Ratio] 13.9 % Normal 11.5-15.0 [facility] Comment on above: Order Comment: Speci men Type: BLOOD SPECIMENOrdering Facility: [facility] Address: [address] [place] [address] Performed By: #### 5 7021-8 ####[facility] LABORATORYCLIA [id number] [place] [id number] [place] Hematocrit (Bld) [Volume fraction] 35.4 % Low 36.0-46.0 [facility] Comment on above: Order Comment: Speci men Type: BLOOD SPECIMENOrdering Facility: [facility] Address: [address] [place] [address] Performed By: #### 5 7021-8 ####[facility] LABORATORYCLIA [id number] [place] [address] [place] Hemoglobin (Bld) [Mass/Vol] 11.3 g/dL Low 11.5-15.5 [facility] Comment on above: Order Comment: Speci men Type: BLOOD SPECIMENOrdering Facility: [facility] Address: [address] [place] [address] Performed By: #### 5 7021-8 ####[facility] LABORATORYCLIA [id number] [place] [address] [place] Immature granulocytes (Bld) [#/Vol] 10*3/uL Normal <0.10 [facility] Comment on above: Order Comment: Speci men Type: BLOOD SPECIMENOrdering Facility: [facility] Address: [address] [place] [address] Performed By: #### 5 7021-8 ####[facility] LABORATORYCLIA [id number] [place] [id number] [place] Immature granulocytes/100 WBC (Bld) 0.2 % Normal [facility] Comment on above: Order Comment: Speci men Type: BLOOD SPECIMENOrdering Facility: [facility] Address: [address] [place] [address] Performed By: #### 5 7021-8 ####[facility] LABORATORYCLIA [id number] [place] [address] [place] Lymphocytes (Bld) [#/Vol] 1.07 10*3/uL Normal 1.00-4.00 [facility] Comment on above: Order Comment: Speci men Type: BLOOD SPECIMENOrdering Facility: [facility] Address: [address] [place] [address] Performed By: #### 5 7021-8 ####[facility] LABORATORYCLIA [id number] [place] [address] [place] Lymphocytes/100 WBC (Bld) 16.2 % Normal [facility] Comment on above: Order Comment: Speci men Type: BLOOD SPECIMENOrdering Facility: [facility] Address: [address] [place] [address] Performed By: #### 5 7021-8 ####[facility] LABORATORYCLIA [id number] [address] [place] MCH (RBC) [Entitic mass] 27.0 pg Normal 26.0-34.0 [facility] Comment on above: Order Comment: Speci men Type: BLOOD SPECIMENOrdering Facility: [facility] Address: [address] [place] [address] Performed By: #### 5 7021-8 ####[facility] LABORATORYCLIA [id number] [address] [place] MCHC (RBC) [Mass/Vol] 31.9 g/dL Normal 30.5-36.0 [facility] Comment on above: Order Comment: Speci men Type: BLOOD SPECIMENOrdering Facility: [facility] Address: [address] [place] [address] Performed By: #### 5 7021-8 ####[facility] LABORATORYCLIA [id number] [address] [place] MCV (RBC) [Entitic vol] 84.5 fL Normal 80.0-100.0 [facility] Comment on above: Order Comment: Speci men Type: BLOOD SPECIMENOrdering Facility: [facility] Address: [address] [place] [address] Performed By: #### 5 7021-8 ####[facility] LABORATORYCLIA [id number] [place] [address] [place] Monocytes (Bld) [#/Vol] 0.94 10*3/uL High <0.87 [facility] Comment on above: Order Comment: Speci men Type: BLOOD SPECIMENOrdering Facility: [facility] Address: [address] [place] [address] Performed By: #### 5 7021-8 ####[facility] LABORATORYCLIA [id number] [place] [id number] [place] Monocytes/100 WBC (Bld) 14.2 % Normal [facility] Comment on above: Order Comment: Speci men Type: BLOOD SPECIMENOrdering Facility: [facility] Address: [address] [place] [address] Performed By: #### 5 7021-8 ####[facility] LABORATORYCLIA [id number] [place] [address] [place] Neutrophils (Bld) [#/Vol] 4.42 10*3/uL Normal 1.45-7.50 [facility] Comment on above: Order Comment: Speci men Type: BLOOD SPECIMENOrdering Facility: [facility] Address: [address] [place] [address] Performed By: #### 5 7021-8 ####[facility] LABORATORYCLIA [id number] [place] [address] [place] Neutrophils/100 WBC (Bld) 66.6 % Normal [facility] Comment on above: Order Comment: Speci men Type: BLOOD SPECIMENOrdering Facility: [facility] Address: [address] [place] [address] Performed By: #### 5 7021-8 ####[facility] LABORATORYCLIA [id number] [place] [id number] [place] Nucleated RBC (Bld) [#/Vol] 10*3/uL Normal <0.01 [facility] Comment on above: Order Comment: Speci men Type: BLOOD SPECIMENOrdering Facility: [facility] Address: [address] [place] [address] Performed By: #### 5 7021-8 ####[facility] LABORATORYCLIA [id number] [place] [id number] [place] Nucleated RBC/100 WBC (Bld) [Ratio] 0.0 /100 WBC Normal [facility] Comment on above: Order Comment: Speci men Type: BLOOD SPECIMENOrdering Facility: [facility] Address: [address] [place] [address] Performed By: #### 5 7021-8 ####[facility] LABORATORYCLIA [id number] [place] [id number] [place] Platelet mean volume (Bld) [Entitic vol] 9.8 fL Normal 9.0-12.7 [facility] Comment on above: Order Comment: Speci men Type: BLOOD SPECIMENOrdering Facility: [facility] Address: [address] [place] [address] Performed By: #### 5 7021-8 ####[facility] LABORATORYCLIA [id number] [place] [id number] [place] Platelets (Bld) [#/Vol] 353 10*3/uL Normal 150-400 [facility] Comment on above: Order Comment: Speci men Type: BLOOD SPECIMENOrdering Facility: [facility] Address: [address] [place] [address] Performed By: #### 5 7021-8 ####[facility] LABORATORYCLIA [id number] [place] [id number] [place] RBC (Bld) [#/Vol] 4.19 10*6/uL Normal 3.90-5.20 [facility] Comment on above: Order Comment: Speci men Type: BLOOD SPECIMENOrdering Facility: [facility] Address: [address] [place] [address] Performed By: #### 5 7021-8 ####[facility] LABORATORYCLIA [id number] [place] [id number] [place] WBC (Bld) [#/Vol] 6.62 10*3/uL Normal 3.70-11.00 [facility] Comment on above: Order Comment: Speci men Type: BLOOD SPECIMENOrdering Facility: [facility] Address: [address] [place] [address] Performed By: #### 5 7021-8 ####[facility] LABORATORYIA [id number] [address] CONSULTon 01-18-2024 CONSULT HNO ID: [id number] Author: DAWN CABELLO APRN.CNP Service: Gastroenterology Author Type: Nurse Practitioner Type: Consults Filed: 01/18/2024 16:30 Note Text: GI INITIAL CONSULT NOTE SERVICE DATE: 01/18/2024 SERVICE TIME: 1510 REASON FOR CONSULT: crohn's flare REQUESTING PHYSICIAN: Brigitte Tran, PRIMARY CARE PHYSICIAN: Kale Rendon MD ASSESSMENT/PLAN 1.) Crohn's colitis, without complications (HCC) (POA: Yes) 2.) Abdominal pain 3.) Diverting ileostomy 2017 4.) Seton drain 2017 No leukocytosis, afebrile Hgb 11.3 - improved [...] so could not go back on, then stelera in 2017 but had antibodies per pt [...] 35.4, Plt (more content not included)... Normal [facility] CRP SerPl-mCncon 01-18-2024 CRP [Mass/Vol] 14.8 mg/dL High <0.9 [facility] Comment on above: Order Comment: Speci men Type: BLOOD SPECIMENOrdering Facility: [facility] Address: [address] [place] [address] Performed By: #### 1 988-5, 2276-4 ####[facility] LABORATORYCLIA [id number] [place] [address] [place] [address] ABD/PEL W [...] Partially imaged seton in the perianal region. Staffing Director: MARK Transcribe Date/Time: Jan 18 2024 1:30A Dictated by : GINI GALARZA MD This examination was interpreted and the report reviewed and electronically signed by: GINI GALARZA MD on Jan 18 2024 1:36AM EST [id number] N Normal [facility] Calprotectin (Stl) [Mass/Mas s]on 01-18-2024 CALPROTECTIN, FECAL QUANTITATIVE 114 ug/g High <50 [facility] Comment on above: Order Comment: Speci men Type: STOOL SPECIMENOrdering Facility: [facility] Address: [address] [place] [address] Performed By: #### 3 8445-3, 37688-2 ####[facility] LABCLIA [id number] [place] [address] [place] Comp Metab 2000 Pnl SerPlon 01-18-2024 Glucose [Mass/Vol] 116 mg/dL High 60-105 [facility] Comment on above: Order Comment: Speci men Type: BLOOD SPECIMENOrdering Facility: [facility] Address: [address] [place] [address] Result Comment: The [place] [employer] (ADA) provides guidance for cutoff [...] Standards of Medical Care in Diabetes 2016, [place] [employer]. Diabetes Care. 2016.39(Suppl 1). Performed By: #### 3 040-3, 81752-7 ####[facility] LABORATORYCLIA [id number] [place] [address] [facility] Order Comment: Speci men Type: VENOUS BLOOD SPECIMENOrdering Facility: [facility] Address: [address] [place] [address] Performed By: #### 2 4344-4 ####[facility] LABORATORYCLIA [id number] [place] [id number] [facility] [place] Comprehensive metabolic 2000 panelon 01-18-2024 Albumin [Mass/Vol] 3.5 g/dL Low 3.9-4.9 [facility] Comment on above: Order Comment: Speci men Type: BLOOD SPECIMENOrdering Facility: [facility] Address: [address] [place] [address] Performed By: #### 3 040-3, 62561-9 ####[facility] LABORATORYCLIA [id number] [place] [id number] [place] ALP [Catalytic activity/Vol] 103 U/L Normal 34-123 [facility] Comment on above: Order Comment: Speci men Type: BLOOD SPECIMENOrdering Facility: [facility] Address: [address] [place] [address] Performed By: #### 3 040-3, 17061-5 ####[facility] LABORATORYCLIA [id number] [place] [id number] [facility] [place] ALT [Catalytic activity/Vol] 7 U/L Normal 7-38 [facility] Comment on above: Order Comment: Speci men Type: BLOOD SPECIMENOrdering Facility: [facility] Address: [address] [place] [address] Performed By: #### 3 040-3, 68464-9 ####[facility] LABORATORYCLIA [id number] [place] [address] [place] Anion gap [Moles/Vol] 13 mmol/L Normal 9-18 [facility] Comment on above: Order Comment: Speci men Type: BLOOD SPECIMENOrdering Facility: [facility] Address: [address] [place] [address] Performed By: #### 3 -3, ####[facility] LABORATORYCLIA [id number] [place] [address] [place] AST [Catalytic activity/Vol] 11 U/L Low 13-35 [facility] Comment on above: Order Comment: Speci men Type: BLOOD SPECIMENOrdering Facility: [facility] Address: [address] [place] [address] Performed By: #### 3 -, ####[facility] LABORATORYCLIA [id number] [place] [id number] [place] Bilirubin [Mass/Vol] 0.3 mg/dL Normal 0.2-1.3 [facility] Comment on above: Order Comment: Speci men Type: BLOOD SPECIMENOrdering Facility: [facility] Address: [address] [place] [address] Performed By: #### 3 , ####[facility] LABORATORYCLIA [id number] [place] [address] [place] Calcium [Mass/Vol] 8.8 mg/dL Normal 8.5-10.2 [facility] Comment on above: Order Comment: Speci men Type: BLOOD SPECIMENOrdering Facility: [facility] Address: [address] [place] [address] Performed By: #### 3 , ####[facility] LABORATORYCLIA [id number] [place] [id number] [place] Chloride [Moles/Vol] 98 mmol/L Normal 97-105 [facility] Comment on above: Order Comment: Speci men Type: BLOOD SPECIMENOrdering Facility: [facility] Address: [address] [place] [address] Performed By: #### 3 3, ####[facility] LABORATORYCLIA [id number] [place] [id number] [place] CO2 [Moles/Vol] 24 mmol/L Normal 22-30 [facility] Comment on above: Order Comment: Speci men Type: BLOOD SPECIMENOrdering Facility: [facility] Address: [address] [place] [address] Performed By: #### 3 040-3, 37665-9 ####[facility] LABORATORYCLIA [id number] [place] [id number] [place] Creatinine [Mass/Vol] 0.72 mg/dL Normal 0.58-0.96 [facility] Comment on above: Order Comment: Speci men Type: BLOOD SPECIMENOrdering Facility: [facility] Address: [address] [place] [address] Performed By: #### 3 040-, 41562-0 ####[facility] LABORATORYCLIA [id number] [place] [address] [place] Creatinine and Glomerular filtration rate.predicted panel (S/P/Bld) 117 mL/min/1.73m??? Normal >=60 [facility] Comment on above: Order Comment: Speci men Type: BLOOD SPECIMENOrdering Facility: [facility] Address: [address] [place] [address] Result Comment: Alysha mated Glomerular Filtration Rate [...] accurately reflect actual GFR. Performed By: #### 3 040-3, 34844-4 ####[facility] LABORATORYCLIA [id number] [place] [id number] [place] Potassium [Moles/Vol] 3.4 mmol/L Low 3.7-5.1 [facility] Comment on above: Order Comment: Frankii men Type: BLOOD SPECIMENOrdering Facility: [facility] Address: [address] [place] [address] Performed By: #### 3 040-3, 50241-8 ####[facility] LABORATORYCLIA [id number] [place] [id number] [place] Protein [Mass/Vol] 7.2 g/dL Normal 6.3-8.0 [facility] Comment on above: Order Comment: Speci men Type: BLOOD SPECIMENOrdering Facility: [facility] Address: [address] [place] [address] Performed By: #### 3 040-3, 04001-2 ####[facility] LABORATORYCLIA [id number] [place] [id number] [place] Sodium [Moles/Vol] 135 mmol/L Low 136-144 [facility] Comment on above: Order Comment: Speci men Type: BLOOD SPECIMENOrdering Facility: [facility] Address: [address] [place] [address] Performed By: #### 3 040-3, 92899-2 ####[facility] LABORATORYCLIA [id number] [place] [id number] [place] Urea nitrogen [Mass/Vol] 7 mg/dL Normal 7-21 [facility] Comment on above: Order Comment: Speci men Type: BLOOD SPECIMENOrdering Facility: [facility] Address: [address] [place] [address] Performed By: #### 3 040-3, 74864-4 ####[facility] LABORATORYCLIA [id number] [place] [id number] [place] ECG COMPLETEon 01-18-2024 ECG COMPLETE Ventricular Rate : 7 9 BPM Atrial Rate : 79 BPM P-R Interval : 160 ms QRS Duration : 106 ms Q-T Interval : 379 ms QTC Calculation(Bazett) : 435 ms Calculated P [place] : 36 degrees Calculated R [place] : 52 degrees Calculated T [place] : -4 degrees Sinus rhythm RSR' in V1 or V2, probably normal variant Borderline T abnormalities, inferior leads Borderline ECG Confirmed by MARGIE AGUIRRE MD ([id number]) on 01/27/2024 12:00:17 PM NAME : ROLA AGIULAR PID : [id number] : 1995 Gender : Female Race : ORD : [id number] Procedure Date : Jan 18 2024 07:57:49 Edit Date : Jan 27 2024 12:00:20 Diagnosis: Sinus rhythm RSR' in V1 or V2, probably normal variant Borderline T abnormalities, inferior leads Borderline ECG Confirmed by MARGIE AGUIRRE MD ([id number]) on 01/27/2024 12:00:17 PM Test Reason : Check QT Location : 400 : FVEKG PKTB Overread By : MARGIE AGUIRRE MD Edited By : MARGIE AGUIRRE MD Referred By : , Acquired by : RONEL ROB [facility] ED PROV NOTEon 01-18-2024 ED PROV NOTE HNO ID: [id number] Author: DIANE FONSECA MD Service: Emergency Medicine [...] fallen out of follow-up with her previous diet tech whom she has not seen since [address] Thakkar and colorectal [...] of November. She was seen twice at [facility] in the month of November with 2 [...] attempted to schedule an appointment with any diet tech available to see her since her last [...] History provided by: Medical records and patient security risk analyst used: No 28 year old female female [...] was supposed to be seen with Dr Jeanine Villa, but she canceled her appointment. PAST [...] and light-headedness. Hematological: Does not bruise/bleed easily. Psychiatric/Behaviora l (more content not included)... Normal [facility] ESR Westergren method (Bld) [Velocity]on 01-18-2024 ESR (Bld) [Velocity] 57 mm/h High 0-20 [facility] Comment on above: Order Comment: Speci men Type: BLOOD SPECIMENOrdering Facility: [facility] Address: [address] [place] [address] Performed By: #### 4 537-7 ####[facility] LABCLIA [id number] [place] [address] [place] Ferritin SerPl-mCncon 2023 Ferritin [Mass/Vol] 315.9 ng/mL High 14.7-205.1 [facility] Comment on above: Order Comment: Speci men Type: BLOOD SPECIMENOrdering Facility: [facility] Address: [address] [place] [address] Performed By: #### 1 988-5, 2276-4 ####[facility] LABORATORYCLIA [id number] [place] [address] [place] Gas and Carbon monoxide pane l (BldV)on 01-18-2024 Base excess Calc (BldV) [Moles/Vol] 1 mmol/L Normal 0-2 [facility] Comment on above: Order Comment: Speci men Type: VENOUS BLOOD SPECIMENOrdering Facility: [facility] Address: [address] [place] [address] Performed By: #### 2 4344-4 ####[facility] LABORATORYCLIA [id number] [place] [address] [place] Body temperature 98.6 [degF] Normal [facility] Comment on above: Order Comment: Speci men Type: VENOUS BLOOD SPECIMENOrdering Facility: [facility] Address: [address] [place] [address] Performed By: #### 2 4344-4 ####[facility] LABORATORYCLIA [id number] [place] [address] [place] Calcium.ionized (Bld) [Mass/Vol] 1.11 mmol/L Normal 1.08-1.30 [facility] Comment on above: Order Comment: Speci men Type: VENOUS BLOOD SPECIMENOrdering Facility: [facility] Address: [address] [place] [address] Performed By: #### 2 4344-4 ####[facility] LABORATORYCLIA [id number] [place] [address] [place] Calcium.ionized adjusted to pH 7.4 (BldA) [Moles/Vol] 1.13 mmol/L Normal 1.08-1.30 [facility] Comment on above: Order Comment: Speci men Type: VENOUS BLOOD SPECIMENOrdering Facility: [facility] Address: [address] [place] [address] Performed By: #### 2 4344-4 ####[facility] LABORATORYCLIA [id number] [place] [address] [place] Carboxyhemoglobin (BldV) [Mass fraction] 2.6 % High 0.0-2.0 [facility] Comment on above: Order Comment: Speci men Type: VENOUS BLOOD SPECIMENOrdering Facility: [facility] Address: [address] [place] [address] Result Comment: Carb oxyhemoglobin Reference Range for Smokers: 2.0-8.0% Performed By: #### 2 4344-4 ####[facility] LABORATORYCLIA [id number] [place] [address] [place] Chloride [Moles/Vol] 104 mmol/L Normal 97-105 [facility] Comment on above: Order Comment: Speci men Type: VENOUS BLOOD SPECIMENOrdering Facility: [facility] Address: [address] [place] [address] Performed By: #### 2 4344-4 ####[facility] LABORATORYCLIA [id number] [place] [id number] [place] CO2 (BldV) [Partial pressure] 37 mm[Hg] Low 42-55 [facility] Comment on above: Order Comment: Speci men Type: VENOUS BLOOD SPECIMENOrdering Facility: [facility] Address: [address] [place] [address] Performed By: #### 2 4344-4 ####[facility] LABORATORYCLIA [id number] [place] [address] [place] HCO3 (Bld) [Moles/Vol] 24 mmol/L Normal 24-28 [facility] Comment on above: Order Comment: Speci men Type: VENOUS BLOOD SPECIMENOrdering Facility: [facility] Address: [facility] [place] [address] Performed By: #### 2 4344-4 ####[facility] LABORATORYCLIA [id number] [place] [address] [place] Hematocrit (Bld) [Volume fraction] 35.9 % Low 36.0-46.0 [facility] Comment on above: Order Comment: Speci men Type: VENOUS BLOOD SPECIMENOrdering Facility: [facility] Address: [facility] [place] [address] Performed By: #### 2 4344-4 ####[facility] LABORATORYCLIA [id number] [place] [id number] [place] Hemoglobin (Bld) [Mass/Vol] 11.6 g/dL Normal 11.5-15.5 [facility] Comment on above: Order Comment: Speci men Type: VENOUS BLOOD SPECIMENOrdering Facility: [facility] Address: [address] [place] [address] Performed By: #### 2 4344-4 ####[facility] LABORATORYCLIA [id number] [place] [id number] [place] Lactate [Moles/Vol] 0.7 mmol/L Normal 0.5-2.2 [facility] Comment on above: Order Comment: Speci men Type: VENOUS BLOOD SPECIMENOrdering Facility: [facility] Address: [address] [place] [address] Performed By: #### 2 4344-4 ####[facility] LABORATORYCLIA [id number] [place] [id number] [place] Methemoglobin (Bld) [Mass fraction] 0.6 % Normal 0.0-1.5 [facility] Comment on above: Order Comment: Speci men Type: VENOUS BLOOD SPECIMENOrdering Facility: [facility] Address: [address] [place] [address] Performed By: #### 2 4344-4 ####[facility] LABORATORYCLIA [id number] [place] [address] [place] O2 THERAPY RA=Room Air Normal [facility] Comment on above: Order Comment: Speci men Type: VENOUS BLOOD SPECIMENOrdering Facility: [facility] Address: [address] [place] [address] Performed By: #### 2 4344-4 ####[facility] LABORATORYCLIA [id number] [place] [address] [place] Oxygen (BldV) [Partial pressure] 130 mm[Hg] High 35-45 [facility] Comment on above: Order Comment: Speci men Type: VENOUS BLOOD SPECIMENOrdering Facility: [facility] Address: [address] [place] [address] Performed By: #### 2 4344-4 ####GISEL[facility] LABORATORYCLIA [id number] [place] [id number] [place] Oxygen saturation in Venous blood 99 % High 60-85 [facility] Comment on above: Order Comment: Speci men Type: VENOUS BLOOD SPECIMENOrdering Facility: [facility] Address: [address] [place] [address] Performed By: #### 2 4344-4 ####GISEL[facility] LABORATORYCLIA [id number] [place] [id number] [place] Oxyhemoglobin (BldV) [Mass fraction] 96 % High 60-85 [facility] Comment on above: Order Comment: Speci men Type: VENOUS BLOOD SPECIMENOrdering Facility: [facility] Address: [address] [place] [address] Performed By: #### 2 4344-4 ####[facility] LABORATORYCLIA [id number] [place] [id number] [place] pH (BldV) 7.44 [pH] High 7.32-7.42 [facility] Comment on above: Order Comment: Speci men Type: VENOUS BLOOD SPECIMENOrdering Facility: [facility] Address: [address] [place] [address] Performed By: #### 2 4344-4 ####[facility] LABORATORYCLIA [id number] [place] [id number] [place] Potassium [Moles/Vol] 3.3 mmol/L Low 3.5-5.0 [facility] Comment on above: Order Comment: Speci men Type: VENOUS BLOOD SPECIMENOrdering Facility: [facility] Address: [address] [place] [address] Performed By: #### 2 4344-4 ####[facility] LABORATORYCLIA [id number] [place] [id number] [place] Sodium [Moles/Vol] 137 mmol/L Normal 136-144 [facility] Comment on above: Order Comment: Speci men Type: VENOUS BLOOD SPECIMENOrdering Facility: [facility] Address: [address] [place] [address] Performed By: #### 2 4344-4 ####GISEL[facility] LABORATORYCLIA [id number] [place] [id number] [place] Gastrointestinal pathogens i dentified CORONA+probe Nom (Stl)on 01-18-2024 Campylobacter sp DNA CORONA+probe Nom (Unsp spec) Not detected Normal Not Detected [facility] Comment on above: Order Comment: Speci men Type: STOOL SPECIMENOrdering Facility: [facility] Address: [address] [place] [address] Performed By: #### 7 9390-1 ####[facility] LABCLIA [id number] [place] [address] [place] Salmonella sp DNA CORONA+probe Ql (Unsp spec) Not detected Normal Not Detected [facility] Comment on above: Order Comment: Speci men Type: STOOL SPECIMENOrdering Facility: [facility] Address: [address] [place] [address] Performed By: #### 7 9390-1 ####[facility] LABCLIA [id number] [place] [address] [place] Shiga toxin stx gene CORONA+probe Nom (Unsp spec) Not detected Normal Not Detected [facility] Comment on above: Order Comment: Speci men Type: STOOL SPECIMENOrdering Facility: [facility] Address: [address] [place] [address] Performed By: #### 7 9390-1 ####[facility] LABCLIA [id number] [address] [place] Shigella sp DNA CORONA+probe Ql (Unsp spec) Not detected Normal Not Detected [facility] Comment on above: Order Comment: Speci men Type: STOOL SPECIMENOrdering Facility: [facility] Address: [address] [place] [address] Performed By: #### 7 9390-1 ####[facility] LABCLIA [id number] [place] [address] [place] HAV IgM Ser Qlon 01-18-2024 HAV IgM Ql (S) Negative Normal Negative [facility] Comment on above: Order Comment: Speci men Type: BLOOD SPECIMENOrdering Facility: [facility] Address: [address] [place] [address] Result Comment: No e vidence of recent infection with Hepatitis A virus. Performed By: #### 3 1204-1, 74188-3, 34563-1 ####[facility] LABCLIA [id number] [place] [address] [place] HBV core IgM Ser Qlon 2023 HBV core IgM Ql (S) Negative Normal Negative [facility] Comment on above: Order Comment: Speci men Type: BLOOD SPECIMENOrdering Facility: [facility] Address: [address] [place] [address] Result Comment: No e vidence of recent infection with Hepatitis B virus. Should recent infection be suspected, repeat testing may be considered 3-4 weeks after this draw. Performed By: #### 3 1204-1, , ####[facility] LABCLIA [id number] [place] [address] [place] HBV surface Ab Ql (S)on 12-23 HBV surface Ab Qn (S) <8.00 Normal [facility] Comment on above: Order Comment: Speci men Type: BLOOD SPECIMENOrdering Facility: [facility] Address: [address] [place] [address] Result Comment: <8 m IU/mL: No serological evidence of immunity to Hepatitis B Virus. >/= 8 to <12 mIU/mL: No serological evidence of immunity to Hepatitis B Virus. >/= 12 mIU/mL: Consistent with serological evidence of immunity to Hepatitis B Virus. Performed By: #### 3 1204-1, , ####[facility] LABCLIA [id number] [address] [place] HBV surface Ab Ser Qlon 12-23 HBV surface Ab Ql (S) Negative Normal [facility] Comment on above: Order Comment: Speci men Type: BLOOD SPECIMENOrdering Facility: [facility] Address: [address] [place] [address] Result Comment: No s erological evidence of immunity to Hepatitis B Virus. Performed By: #### 3 1204-1, , ####[facility] LABCLIA [id number] [place] [address] [place] HBV surface Ag Ser Qlon 12-23 HBV surface Ag Ql (S) Negative Normal Negative [facility] Comment on above: Order Comment: Speci men Type: BLOOD SPECIMENOrdering Facility: [facility] Address: [address] [place] [address] Performed By: #### 5 195-3 ####[facility] LABORATORYCLIA [id number] [address] [place] HCG QUALITATIVEon 01-18-2024 HCG, QUALITATIVE Negative Normal Negative [facility] Comment on above: Order Comment: Frankii eliane Type: BLOOD SPECIMENOrdering Facility: [facility] Address: [address] [place] [address] Performed By: #### H CG, 24968-7 ####[facility] LABORATORYCLIA [id number] [address] HCV Ab Ser Qlon 01-18-2024 HCV Ab Ql (S) Negative Normal Negative [facility] Comment on above: Order Comment: Roya eliane Type: BLOOD SPECIMENOrdering Facility: [facility] Address: [address] [place] [address] Result Comment: The result suggests no evidence of active infection with Hepatitis C virus. Should recent infection be suspected, repeat testing may be considered 4-6 weeks after this draw. Performed By: #### 1 6128-1 ####[facility] LABCLIA [id number] [address] [place] HISTORY PHYSICALon HISTORY PHYSICAL HNO ID: [id number] Author: MASHA CEDILLO MD Service: General Internal [...] past 2 months. She was seen at [facility] twice in November. CT scan findings were [...] 90 tablet, Rfl: 3, Not Taking VIT 33-MSXR-CGXQM-DHA ORAL, Take by mouth. 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 Normal [facility] Iron and Iron binding capaci ty panelon 01-18-2024 Iron [Mass/Vol] 21 ug/dL Low 41-186 [facility] Comment on above: Order Comment: Speci men Type: BLOOD SPECIMENOrdering Facility: [facility] Address: [address] [place] [address], [place] [address] Performed By: #### [place] , 39459-7 ####[facility] LABORATORYCLIA [id number] [place] [id number] [facility] Iron binding capacity [Mass/Vol] 218 ug/dL Low 232-386 [facility] Comment on above: Order Comment: Speci men Type: BLOOD SPECIMENOrdering Facility: [facility] Address: [address] [place] [address] Performed By: #### H , 59720-3 ####[facility] LABORATORYCLIA [id number] [place] [id number] [facility] Iron/TIBC [Molar ratio] 9.6 % Low 20.0-55.0 [facility] Comment on above: Order Comment: Speci men Type: BLOOD SPECIMENOrdering Facility: [facility] Address: [address] [place] [address] Performed By: #### [place] , 43895-3 ####[facility] LABORATORYCLIA [id number] [place] [id number] [place] Lipase SerPl-cCncon 01-18-20 24 Lipase [Catalytic activity/Vol] 23 U/L Normal 16-61 [facility] Comment on above: Order Comment: Speci men Type: BLOOD SPECIMENOrdering Facility: [facility] Address: [address] [place] [address] Performed By: #### 3 040-3, 78781-5 ####[facility] LABORATORYCLIA [id number] [place] [id number] [facility] NURSING PROGon 01-18-2024 NURSING PROG HNO ID: [id number] Author: SOLIS CHEEMA, RN Service: Nursing Author [...] Awaiting response from on-call regarding pt request. [facility] NURSING PROG HNO ID: [id number] Author: SOLIS CHEEMA, RN Service: Nursing Author Type: Registered Nurse Type: Nursing Progress Note Filed: 01/18/2024 07:35 Note Text: Pt c/o pain with prn tylenol offered and declined per pt d/t nausea. On-call notified via secure text of pt complaints and inability to consume PO analgesic options at this time. Awaiting response. [facility] NURSING PROG HNO ID: [id number] Author: SOLIS CHEEMA RN Service: Nursing Author Type: Registered Nurse Type: Nursing Progress Note Filed: 01/18/2024 07:34 Note Text: Transfer Note: PATIENT NAME: Rola Aguilar Patient Location: [place] [address]/[place] [address] Room: [place] [address] Patient transferred into room/unit [facility] in stable condition. Actions taken: Patient belongings with patient. Pt was oriented to the room, call light, hourly rounding, safety practices and when to call for assistance. Colostomy bag intact. Pt is ambulatory independently. No s/s of acute distress. [facility] TPMT GENOTYPEon 01-18-2024 TPMT GENOTYPE TPMT*1/TPMT*1 (TP11) Normal [facility] Comment on above: Order Comment: Speci men Type: BLOOD SPECIMENOrdering Facility: [facility] Address: [address] [place] [address] Performed By: #### T PMTG ####[facility] LIMSCLIA [id number] [place] [address] [place]#### TPMTGNO ####[facility] LABCLIA [id number] [facility]Ed [place] [id number] [place] TPMT PREDICTED PHENOTYPE TPMT Genotyping Normal [facility] Comment on above: Order Comment: Speci men Type: BLOOD SPECIMENOrdering Facility: [facility] Address: [address] [place] [address] Result Comment: Laboratory Accession Number: [id number] Result: TPMT Genotype: *1/*1 TPMT Predicted Phenotype: [...] molecular testing details should be directed to [email or web address]. The TPMT gene encodes thiopurine S-methyltransferase [...] list below) in the TPMT gene (OMIM 868294). This test does not detect all sequence [...] combination of the following variants, RefSNP ID: [id number], [id number], [id number], [id number], [id number], and [id number]. References: 1) Cuca CM, Eliseo REYNA, Catherine BARNETT. Thiopurine methyltransferase (TPMT) genotyping to predict myelosuppression risk. Plos Curr. 2011;0IUT4127. PMC ID: [id number]. 2) Chacho PEREYRA, Shirley Ramos, Siria Ramos, et al. Clinical Pharmacogenetics Implementation Consortium Guideline for Thiopurine Dosing Based on TPMT and NUDT15 Genotypes: 2018 Update. Clinical Pharmacology & Therapeutics (2019) 105(5): 9187-1477. 3) Siria Ramos, Shireen TORRES, Mat BROWN, et al. Pharmacogenomics Knowledge for Personalized Medicine. Clinical Pharmacology & Therapeutics (2012) 92(4): 414-417. 4) Clinical Pharmacogenetics Implementation Consortium (CPIC): www.CPIPpgx.org Disclaimer: This test was developed and its performance characteristics determined by [facility]'s [facility] It has not been cleared or approved by the FDA. -[facility] is regulated under CLIA as certified to perform high- complexity testing. This test is used for clinical purposes. It should not be regarded as investigational or for research. Testing and interpretation performed at [facility], [address] [place], [place] [address]. CLIA Number: [id number] As reviewed by Silvana Crisostomo MD, PhD Performed By: #### T PMTG ####[facility] LIMSCLIA [id number] [place] [address] [place]#### TPMTGNO ####[facility] LABCLIA [id number] [address] [place] TPMT PHENOTYPE/ENZYME ACTIVI TYdavid 01-18-2024 TPMT ACTIVITY 29.7 U/mL Normal 24.0-44.0 [facility] Comment on above: Order Comment: Speci eliane Type: BLOOD SPECIMENOrdering Facility: [facility] Address: [address] [place] [address] Result Comment: INTE RPRETIVE INFORMATION: Thiopurine Methyltransferase, [...] developed and its performance characteristics determined by [facility]. It has not been cleared or approved by the US Food and Drug Administration. This test was performed in a CLIA certified laboratory and is intended for clinical purposes. Performed By: [facility] [address] [place] [address] Circuit Manager: Lee Ann Adam MD, PhD CLIA Number: [id number] Performed By: #### T PMT ####[facility] HOSPITALIA [id number] [place] [id number] XR CHEST 2V FRONTAL/LATon XR CHEST 2V [...] tissues: Unremarkable. IMPRESSION: No acute radiographic abnormality. Staffing Director: PSCB Transcribe Date/Time: Jan 19 2024 1:01A Dictated by : MEAGHAN JOHN MD This examination was interpreted and the report reviewed and electronically signed by: MEAGHAN JOHN MD on Jan 19 2024 1:02AM EST [id number] Normal [facility] ED Triage Noteon 01-17-2024 ED Triage Note HNO ID: [id number] Author: KAYLYN CAMARENA DO Service: Emergency Medicine [...] (radiology procedure) SIGNATURE: Kaylyn Camarena DO Normal [facility] ED Note-Physicianon 12-26-19 ED Note-Physician Basic Information Time Seen: Shelley LEDESMA Vanessa E. 12/21/2023 14:56 Chief Complaint pt c\o abd [...] deficiency Procedure/Surgical History Colonoscopy (01/18/2023), Colonoscopy (2013), Esophagogastroduodeno scopy, History of ileostomy. Medications Inpatient No active [...] 15:37:00) Lymph Auto: 19.1 % (12/21/23 15:37:00) Colbert Auto: 8.2 % (12/21/23 15:37: (more content not included)... Normal [facility] Comment on above: Result Comment: Elec tronically Signed By: Vanessa Rosa PA-C\.br\Date and Time Signed: 12/21/23 16:01 EDT\.br\Electronically Co-Signed By: Elliot Macias DO\.br\Date and Time Co-Signed: 12/21/23 19:03 EDT\.br\Electronically Co-Signed By: Alfred Graham DO\.br\Date and Time Co-Signed: 12/21/23 23:56 EDT\.br\Electronically Co-Signed By: Alfred Graham DO\.br\Date and Time Co-Signed: 12/26/23 02:06 EDT Coding Queryon 12-25-2023 Coding Query - From: Jania Bose To: Alfred Graham DO; Sent: 12/25/2023 12:30:54 EDT Subject: Coding Query (Template) CODING COMMUNICATION: __x__ Final diagnosis missing please document on Discharge Summary ____ Procedure information missing: ____ Please clarify type of organism associated with infection ____ Please complete ROS or HPI for ER documentation Please feel free to contact the coding department with any questions. Thank you! Normal [facility] CT Abdomen/Pelvis w/ Contras ton 12-22-2023 CT [...] Oral contrast amount in ml's: 0 Normal [facility] CBC w/ Auto Diffon 4 Basophils/100 WBC (Bld) 0.6 % Normal 0.0-2.0 [facility] Comment on above: Performed By: #### 1 1355510, 5948676, 2944616, 2069008, 3826765, 8138717 ####[facility] [place] [address] Basophils/Leukocytes Auto (Bld) [Pure # fraction] 0.0 E9/L Normal 0.0-0.2 [facility] Comment on above: Performed By: #### 1 8078653, 3333450, 4462698, 6552737, 4491411, 6493221 ####[place] [address] [place] [address] Eosinophils (Bld) [#/Vol] 0.1 E9/L Normal 0.0-0.5 [facility] Comment on above: Performed By: #### 1 9952707, 3740029, 3271962, 0285041, 6603317, 0155703 ####[place] [address] [address] Eosinophils/100 WBC (Bld) 2.4 % Normal 0.0-8.0 [facility] Comment on above: Performed By: #### 1 2046928, 8811804, 4757223, 2466776, 1869454, 0091259 ####[place] [address] Erythrocyte distribution width (RBC) [Ratio] 16.3 % High 10.9-14.2 [facility] Comment on above: Performed By: #### 1 3817642, 2616873, 1886339, 5257266, 3712649, 5393305 ####[place] [address] Hematocrit (Bld) [Volume fraction] 34.7 % Normal 34.0-46.0 [facility] Comment on above: Performed By: #### 1 8389388, 6504343, 9466995, 6578317, 4160472, 2252715 ####[place] [address] [place] [address] Hemoglobin (Bld) [Mass/Vol] 11.3 g/dL Low 12.0-16.0 [facility] Comment on above: Performed By: #### 1 2942362, 4852089, 4123205, 3896526, 5293908, 8838526 ####[place] [address] Lymphocytes (Bld) [#/Vol] 0.9 E9/L Low 1.0-4.0 [facility] Comment on above: Performed By: #### 1 2740478, 6271088, 4899988, 6769865, 8475115, 7168024 ####[place] [address] [place] [address] Lymphocytes/100 WBC (Bld) 19.1 % Normal 14.0-50.0 [facility] Comment on above: Performed By: #### 1 9047615, 3352055, 5028610, 0561114, 9013839, 6240405 ####[place] [address] [place] [address] MCH (RBC) [Entitic mass] 27.2 pg Normal 27.0-34.0 [facility] Comment on above: Performed By: #### 1 9539413, 7284937, 5134809, 8530170, 3638483, 0886253 ####[address] [address] MCHC (RBC) [Mass/Vol] 32.6 g/dL Normal 31.4-36.0 [facility] Comment on above: Performed By: #### 1 7551263, 8700974, 4079114, 7841943, 7609688, 5562555 ####[address] [address] MCV (RBC) [Entitic vol] 83.5 fL Normal 80.0-100.0 [facility] Comment on above: Performed By: #### 1 7830655, 3272762, 2784836, 5427355, 3113799, 2061086 ####[place] [address] [place] [address] Monocytes (Bld) [#/Vol] 0.4 E9/L Normal 0.2-1.0 [facility] Comment on above: Performed By: #### 1 0680234, 7825899, 9200724, 8773321, 1893111, 7985342 ####[address] [address] Neutrophils (Bld) [#/Vol] 3.4 E9/L Normal 2.0-7.5 [facility] Comment on above: Performed By: #### 1 0562754, 8091031, 5184090, 4974059, 5971409, 7819981 ####[address] [address] Neutrophils/100 WBC (Bld) 69.7 % Normal 36.0-75.0 [facility] Comment on above: Performed By: #### 1 5393641, 3854576, 8212364, 6516916, 6165466, 1195089 ####[address] [address] Platelet mean volume (Bld) [Entitic vol] 7.6 fL Normal 6.4-10.8 [facility] Comment on above: Performed By: #### 1 3362721, 1488080, 4363593, 5806091, 4675326, 9508897 ####[address] [address] Platelets (Bld) [#/Vol] 341.0 E9/L Normal 150.0-500.0 [facility] Comment on above: Performed By: #### 1 5174065, 1970394, 4835263, 0567411, 5850102, 0278799 ####[address] [address] RBC (Bld) [#/Vol] 4.2 E12/L Low 4.3-5.9 [facility] Comment on above: Performed By: #### 1 1222044, 6943047, 8212873, 0560620, 6555029, 0060004 ####[address] [address] WBC corrected for nucl RBC Auto (Bld) [#/Vol] 4.9 E9/L Normal 4.0-11.0 [facility] Comment on above: Performed By: #### 1 0639359, 3586955, 1500450, 2613242, 7238899, 7315641 ####[place] [facility] [id number] [place] [address] CHEMISTRYOrdered By: SYSTEM SYSTEM on 12-21-2023 Albumin [...] 11 mmol/L Normal 6 - 16 mEq/L R emisol Chem AST [Catalytic activity/Vol] 10 [iU]/d Normal [...] 12-21-2023 Albumin [Mass/Vol] 4.2 g/dL Normal 3.3-5.0 [facility] Comment on above: Performed By: #### 1 1721197 #### [facility] [address] [place] [address] Albumin/Globulin (S) [Mass conc ratio] 1.0 Low 1.1-2.2 [facility] Comment on above: Performed By: #### 1 5733738 #### [facility] [address] [place] [address] ALP [Catalytic activity/Vol] 69 Int._Unit/L Normal 21-98 [facility] Comment on above: Performed By: #### 1 0195775 #### [facility] [address] [place] [address] ALT No additional P-5'-P [Catalytic activity/Vol] 9 Int._Unit/L Normal 6-46 [facility] Comment on above: Performed By: #### 1 6069958 #### [facility] [address] [place] [address] Anion gap [Moles/Vol] 11 mmol/L Normal 6-16 [facility] Comment on above: Performed By: #### 1 0237336 #### [facility] [address] [place] [address] AST [Catalytic activity/Vol] 10 Int._Unit/L Normal 5-43 [facility] Comment on above: Performed By: #### 1 1146318 #### [facility] [address] [place] [address] Bilirubin [Mass/Vol] 0.4 mg/dL Normal 0.0-1.[address] [facility] Comment on above: Performed By: #### 1 4528058 #### [facility] [address] [place] [address] Calcium [Mass/Vol] 9.1 mg/dL Normal 8.9-11.1 [facility] Comment on above: Performed By: #### 1 1450404 #### [facility] [address] [place] [address] Chloride [Moles/Vol] 104 mmol/L Normal 101-[address] [facility] Comment on above: Performed By: #### 1 8480691 #### [facility] [address] [place] [address] CO2 [Moles/Vol] 29 mmol/L Normal 21-31 [facility] Comment on above: Performed By: #### 1 2181635 #### [facility] [address] [place] [address] Creatinine [Mass/Vol] 0.7 mg/dL Normal 0.5-1.3 [facility] Comment on above: Performed By: #### 1 6508614 #### [facility] [address] [place] [address] Globulin (S) [Mass/Vol] 4.2 g/dL High 1.4-4.0 [facility] Comment on above: Performed By: #### 1 4338364 #### [facility] [address] [place] [address] Glucose [Mass/Vol] 91 mg/dL Normal 55-199 [facility] Comment on above: Performed By: #### 1 8333292 #### [facility] [address] [place] [address] Potassium [Moles/Vol] 3.3 mmol/L Low 3.5-5.3 [facility] Comment on above: Performed By: #### 1 3968759 #### [facility] [address] [place] [address] Protein [Mass/Vol] 8.4 g/dL High 6.0-7.8 [facility] Comment on above: Performed By: #### 1 3059203 #### [facility] [address] [place] [address] Sodium [Moles/Vol] 141 mmol/L Normal 135-145 [facility] Comment on above: Performed By: #### 1 [id number] #### [facility] [address] [place] [address] Urea nitrogen [Mass/Vol] 8 mg/dL Normal 5-21 [facility] Comment on above: Performed By: #### 1 [id number] #### [facility] [address] [place] [address] Urea nitrogen/Creatinine [Mass ratio] 11 No Units Normal 10-20 [facility] Comment on above: Performed By: #### 1 [id number] #### [facility] [address] [place] [address] Consent for Treatmenton 11-23 Consent for Treatment [id number]#1 .00TIFF Normal [facility] Discharge Instructionson Discharge Instructions [id number]# 1.00TIFF Normal [facility] ED Clinical Summaryon 2023 ED Clinical Summary [address] [address] ED Clinical Summary Person Information Name: ROLA AGUILAR Elena/[facility] Age: 28 Years : 1995 Sex: Female Language: Honduran PCP: Kale RENDON MD Marital Status: Single Phone: [phone] Visit Id: Visit Reason: Ostomy evaluation; Nausea; [...] 12/21/2023 21:17:14 12/21/2023 21:17:14 12/21/2023 21:17:14 ADDRESS: [address] [place] [id number] PHYS DOC NOTES: MEDICAL INFORMATION: Prescriptions Given: New Medications [facility]/pharmacy #[id number], [address] [place], [place] [id number], [phone] oxycodone (oxyCODONE 5 mg Tab) 1 Tablets By Mouth every 6 hours as needed for pain for 3 Days. Refills: 0. Medications to Continue Taking That Have Changed [facility]/pharmacy #6173, [address] [place], [place] [id number], [phone] START: ondansetron (Zofran ODT 4 mg Tab-Dis) [...] Disease Follow up: With: Address: When: Ja Pérez [address] [place] [address], [facility] [address] [phone] Business (1) In 3 days 12/24/2023 Comments: [...] worsening symptoms. With: Address: When: Kale RENDON [address] [place] [address] Business (1) In 3 days 12/24/2023 DIAGNOSIS: Acute Crohn's disease Normal [facility] ED Patient Education Noteon 12-21-2023 ED Patient [...] specializes in diseases of the digestive tract (diet tech). How is this treated? There is no [...] these instructions at home: Medicines ? Take yltq-fwn-fuyikwb and prescription medicines only as told by [...] contain jonny (more content not included)... Normal [facility] ED Patient Summaryon 024 ED Patient Summary [address] [address] Patient Discharge Instructions Person Information Name: ROLA AGUILAR Age: 28 Years Arrival Date: 12/21/2023 14:42:51 Discharge Diagnosis: Acute Crohn's disease Primary Care Physician: MERVAT GILES, Kale Provider Information Primary Provider: Elliot Macias DO Advanced Implementation Lead:None The exam and treatment you received in the Emergency Department were for an urgent problem and are not intended as complete care. It is important that you follow up with a doctor, nurse practitioner, or physician?s back office medical assistant for ongoing care. If your symptoms become worse or you do not improve as expected and you are unable to reach your usual health care provider, you should return to the Emergency Department. We are available 24 hours a day. ROLA AGUILAR has been given the following list of patient education materials, prescriptions and follow-up instructions: Follow-up Instructions: With: Address: When: Ja Pérez [address] [place] [address], [address], [address] [phone] Business (1) In 3 days 12/24/2023 Comments: [...] worsening symptoms. With: Address: When: Kale RENDON [address] [place] [address] Business (1) In 3 days 12/24/2023 In the event that this physician does not participate in your insurance network, please consult with your insurance company to find a nearby participating provider. Patient Education Materials: Crohn's Disease A MESSAGE TO ALL PATIENTS REGARDING OPIOIDS PRESCRIPTION OPIOIDS: WHAT YOU NEED TO KNOW Prescription opioids can be used to help relieve wowvglec-qe-ruaxwv pain and are often prescribed following a [...] unused prescription opioi (more content not included)... Normal [facility] HEMATOLOGYOrdered By: SYSTEM SYSTEM on 12-21-2023 Basophils/100 [...] Lactic Acid Lvl 0.4 mmol/L Low 0.5-2.2 [facility] Comment on above: Performed By: #### 1 [id number], 7123657, 3294775, 6045872, 1004205, 8496903 ####[facility] [address] [place] [address] Lipase Levelon 12-21-2023 Lipase [Catalytic activity/Vol] 57 U/L Normal 13-58 [facility] Comment on above: Performed By: #### 1 [id number] #### [facility] [address] [place] [address] Magnesiumon 12-21-2023 Magnesium [Mass/Vol] 1.6 mg/dL Normal 1.3-2.[address] [facility] Comment on above: Performed By: #### 1 [id number] #### [facility] [address] [place] [address] RAD - Preliminary Cat Scan R eporton 12-21-2023 RAD - Preliminary Cat Scan Report [id number]# 1.00TIFF Normal [facility] eGFRon 12-21-2023 eGFR 120 mL/min/1.73 m2 Normal >=59 [facility] Comment on above: Order Comment: Order added by Discern Expert. Performed By: #### 1 [id number] #### [facility] [address] [place] [address] CT Abdomen/Pelvis w/ Contras ton 12-08-2023 CT [...] Sanchez FINAL REPORT Dictated: 12/08/2023 8:58 am Jadyn Dueñas MD, V. Signed (Electronic Signature): 12/08/2023 8:58 am Signed by: Jadyn Dueñas MD, V. Transcribed by: CLARICE Technologist: JEREMIAS Technical Comments GFR (mL/min/1/73m2) n/a-age Contrast: Isovue 300 Contrast amount in ml's: 100 Normal [facility] Discharge Instructionson Discharge Instructions [id number] [id number]# 1.00TIFF Normal [facility] ED Clinical Summaryon 2023 ED Clinical Summary [place] [id number] ED Clinical Summary Person Information Name: ROLA AGUILAR Ed Elena/[facility] Age: 28 Years : 1995 Sex: Female Language: Honduran PCP: Kale RENDON MD Marital Status: Single Phone: [phone] Visit Id: Visit Reason: Blood in stool; [...] 12/08/2023 00:09:54 12/08/2023 00:09:54 12/08/2023 00:09:54 ADDRESS: [address] [place] [id number] PHYS DOC NOTES: MEDICAL INFORMATION: Prescriptions Given: New Medications [facility], [address] [place], [place] [id number], [phone] predniSONE (predniSONE 10 mg Tab) 6 tabs [...] Follow up: With: Address: When: Kale RENDON [address] [place] [address] Business (1) In 3 days DIAGNOSIS: Exacerbation of Crohn's disease; Hypokalemia Normal [facility] ED Patient Education Noteon 12-08-2023 ED Patient [...] specializes in diseases of the digestive tract (diet tech). How is this treated? There is no [...] these instructions at home: Medicines ? Take qsgh-dly-pgtbrzp and prescription medicines only as told by [...] contain jonny (more content not included)... Normal [facility] ED Patient Summaryon 024 ED Patient Summary [address] [address] Patient Discharge Instructions Person Information Name: ROLA AGUILAR Age: 28 Years Arrival Date: 12/07/2023 18:41:54 Discharge Diagnosis: Exacerbation of Crohn's disease; Hypokalemia Primary Care Physician: Kale RENDON MD Provider Information Primary Provider: Alex Sanchez DO Advanced Implementation Lead:None The exam and treatment you received in the Emergency Department were for an urgent problem and are not intended as complete care. It is important that you follow up with a doctor, nurse practitioner, or physician?s back office medical assistant for ongoing care. If your symptoms become worse or you do not improve as expected and you are unable to reach your usual health care provider, you should return to the Emergency Department. We are available 24 hours a day. ROLA AGUILAR has been given the following list of patient education materials, prescriptions and follow-up instructions: Follow-up Instructions: With: Address: When: Kale RENDON [address] [place] [address] Business (1) In 3 days In the event that this physician does not participate in your insurance network, please consult with your insurance company to find a nearby participating provider. Patient Education Materials: Crohn's Disease A MESSAGE TO ALL PATIENTS REGARDING OPIOIDS PRESCRIPTION OPIOIDS: WHAT YOU NEED TO KNOW Prescription opioids can be used to help relieve pfkvbntp-yt-wrlbka pain and are often prescribed following a [...] guidance from the Food and Drug Administration (www.fda.gov/Drugs/Re sourcesForYou). ? Visit www.cdc.gov/drugoverd ose to learn about the risks of opioids abuse and overdose. ? If you believe you may be struggling with addiction, tell your health career representative and ask for guidance or call [facility]?S National Helpline at 1-117-964-WXLL. f Source: [facility] (more content not included)... Normal [facility] RAD - Preliminary Cat Scan R eporton 12-08-2023 RAD - Preliminary Cat Scan Report [id number]# 1.00TIFF Normal [facility] B hCG Qualon 12-07-2023 Beta HCG ( test) Ql Negative Normal [facility] Comment on above: Performed By: #### 2 504156, 1608319, 5444765, 2118765, 7153487, 50400093 #### [facility] [address] [place] [address] BMPon 12-07-2023 Anion gap [Moles/Vol] 11 mmol/L Normal 6-16 [facility] Comment on above: Performed By: #### 2 591466, 5305088, 4759909, 0344819, 8104525, 29966242 #### [facility] [address] [place] [address] Calcium [Mass/Vol] 8.4 mg/dL Low 8.9-11.1 [facility] Comment on above: Performed By: #### 2 137451, 4621696, 8720001, 7869849, 4078018, 76899575 #### [facility] [address] [place] [address] Chloride [Moles/Vol] 104 mmol/L Normal 101-111 [facility] Comment on above: Performed By: #### 2 766798, 6991030, 1390093, 4283666, 0845169, 71808201 #### [facility] [address] [place] [address] CO2 [Moles/Vol] 28 mmol/L Normal 21-31 [facility] Comment on above: Performed By: #### 2 212411, 2900738, 7220301, 4631835, 5422788, 97548116 #### [facility] [address] [place] [address] Creatinine [Mass/Vol] 0.8 mg/dL Normal 0.5-1.3 [facility] Comment on above: Performed By: #### 2 592516, 5032154, 0833013, 8204966, 0524484, 94949803 #### [facility] [address] [place] [address] Glucose [Mass/Vol] 83 mg/dL Normal 55-199 [facility] Comment on above: Performed By: #### 2 617456, 4289151, 2719663, 2309202, 0665569, 88868449 #### [facility] [address] [place] [address] Potassium [Moles/Vol] 3.2 mmol/L Low 3.5-5.3 [facility] Comment on above: Performed By: #### 2 686364, 9288283, 7771683, 6350432, 8376140, 83675963 #### [facility] [address] [place] [address] Sodium [Moles/Vol] 140 mmol/L Normal 135-145 [facility] Comment on above: Performed By: #### 2 799764, 4397894, 5864974, 8169490, 7413895, 97805695 #### [facility] [address] [place] [address] Urea nitrogen [Mass/Vol] 8 mg/dL Normal 5-21 [facility] Comment on above: Performed By: #### 2 486051, 7633467, 0760124, 2704821, 6690239, 42186595 #### [facility] [address] [place] [address] Urea nitrogen/Creatinine [Mass ratio] 10 No Units Normal 10-20 [facility] Comment on above: Performed By: #### 2 845643, 2990028, 8366553, 4799516, 1731028, 71957465 #### [facility] [address] [place] [address] CBC w/ Auto Diffon 4 Basophils/100 WBC (Bld) 0.4 % Normal 0.0-2.0 [facility] Comment on above: Performed By: #### 2 649511, 8132601, 9134945, 6729240, 9959897, 54083747 #### [facility] [address] [place] [address] Basophils/Leukocytes Auto (Bld) [Pure # fraction] 0.0 E9/L Normal 0.0-0.2 [facility] Comment on above: Performed By: #### 2 254070, 0558170, 0969602, 2585476, 6613165, 99030875 #### [facility] [address] [place] [address] Eosinophils (Bld) [#/Vol] 0.2 E9/L Normal 0.0-0.5 [facility] Comment on above: Performed By: #### 2 152292, 3909135, 3911370, 2800173, 1825073, 94342783 #### [facility] [address] [place] [address] Eosinophils/100 WBC (Bld) 3.6 % Normal 0.0-8.0 [facility] Comment on above: Performed By: #### 2 599740, 1162506, 8775862, 1262219, 7440398, 48040450 #### [facility] [address] [place] [address] Erythrocyte distribution width (RBC) [Ratio] 17.0 % High 10.9-14.2 [facility] Comment on above: Performed By: #### 2 765994, 1934667, 0956285, 3762086, 8753312, 93521531 #### [facility] [address] [place] [address] Hematocrit (Bld) [Volume fraction] 33.4 % Low 34.0-46.0 [facility] Comment on above: Performed By: #### 2 203131, 2053084, 6071939, 3359166, 1135976, 68853522 #### [facility] [address] [place] [address] Hemoglobin (Bld) [Mass/Vol] 11.0 g/dL Low 12.0-16.0 [facility] Comment on above: Performed By: #### 2 231609, 6277753, 7546422, 3183605, 6622103, 14285323 #### [facility] [address] [place] [address] Lymphocytes (Bld) [#/Vol] 0.8 E9/L Low 1.0-4.0 [facility] Comment on above: Performed By: #### 2 002290, 7026563, 2596288, 5438120, 9121951, 70345853 #### [facility] [address] [place] [address] Lymphocytes/100 WBC (Bld) 14.9 % Normal 14.0-50.0 [facility] Comment on above: Performed By: #### 2 856429, 4132831, 3013632, 3777632, 8034428, 30036572 #### [facility] [address] [place] [address] MCH (RBC) [Entitic mass] 27.6 pg Normal 27.0-34.0 [facility] Comment on above: Performed By: #### 2 887340, 3068974, 9380930, 3467559, 5554266, 48871881 #### [facility] [address] [place] [address] MCHC (RBC) [Mass/Vol] 32.9 g/dL Normal 31.4-36.0 [facility] Comment on above: Performed By: #### 2 333586, 6424570, 9209432, 1853373, 1924240, 11600513 #### [facility] [address] [place] [address] MCV (RBC) [Entitic vol] 83.9 fL Normal 80.0-100.0 [facility] Comment on above: Performed By: #### 2 122702, 0980344, 9862993, 2462312, 6711609, 50156589 #### [facility] [address] [place] [address] Monocytes (Bld) [#/Vol] 0.5 E9/L Normal 0.2-1.0 [facility] Comment on above: Performed By: #### 2 788869, 1758807, 4369135, 3014633, 7778589, 83043527 #### [facility] [address] [place] [address] Neutrophils (Bld) [#/Vol] 4.0 E9/L Normal 2.0-7.5 [facility] Comment on above: Performed By: #### 2 961607, 0516925, 7883091, 0521787, 8369975, 67204721 #### [facility] [address] [place] [address] Neutrophils/100 WBC (Bld) 71.8 % Normal 36.0-75.0 [facility] Comment on above: Performed By: #### 2 393126, 4775385, 0397384, 6044572, 2902133, 88240518 #### [facility] [address] [place] [address] Platelet 337.0 E9/L Normal 150.0-500.0 [facility] Comment on above: Performed By: #### 2 053132, 6967701, 7772234, 3170586, 7434452, 14476819 #### [facility] [address] [place] [address] Platelet mean volume (Bld) [Entitic vol] 7.4 fL Normal 6.4-10.8 [facility] Comment on above: Performed By: #### 2 302341, 6035190, 1408653, 2452576, 6535830, 83005572 #### [facility] [address] [place] [address] RBC (Bld) [#/Vol] 4.0 E12/L Low 4.3-5.9 [facility] Comment on above: Performed By: #### 2 509094, 0135487, 4091157, 1943975, 8370766, 94899100 #### [facility] [address] [place] [address] WBC corrected for nucl RBC Auto (Bld) [#/Vol] 5.6 E9/L Normal 4.0-11.0 [facility] Comment on above: Performed By: #### 2 314453, 8139147, 3553196, 1138555, 5551193, 04606040 #### [facility] [address] [place] [address] CHEMISTRYOrdered By: SYSTEM SYSTEM on 12-07-2023 Albumin [...] 11 mmol/L Normal 6 - 16 mEq/L R emisol Chem AST [Catalytic activity/Vol] 11 [iU]/d Normal [...] Consent for Treatmenton 11-21 Consent for Treatment [id number] .00TIFF Normal [facility] ED Note-Physicianon 12-07-19 24 ED Note-Physician Basic Information Time Seen: Alex Sanchez DO 12/07/2023 18:55 Chief Complaint Pt is 6 [...] weeks from a and at first her [employer] told her that it should be getting better but the pain is only getting worse. She says she follows with [facility] for gastroenterology but was recently told [...] and Complexity of Problems Differential Diagnosis: [] [facility] Data External documents reviewed: N/A My EKG [...] days, # 42 tab(s), Refills(s) 0, Pharmacy: [facility]/pharmacy #[id number], 167, cm, 12/07/23 18:59:00 EDT, [...] See Instructions Follow-up With When Contact Information Kale RENDON In 3 day (more content not included)... Normal [facility] Comment on above: Result Comment: Elec tronically [...] 12-07-2023 Albumin [Mass/Vol] 3.9 g/dL Normal 3.3-5.0 [facility] Comment on above: Performed By: #### 2 329325, 1876435, 3712847, 7214525, 7557003, 74448262 #### [facility] [address] [place] [address] Albumin/Globulin (S) [Mass conc ratio] 1.2 Normal 1.1-2.2 [facility] Comment on above: Performed By: #### 2 681607, 9499086, 9943325, 4596196, 5777178, 54176228 #### [facility] [address] [place] [address] ALP [Catalytic activity/Vol] 68 Int._Unit/L Normal 21-98 [facility] Comment on above: Performed By: #### 2 435895, 3233094, 0816596, 4313521, 3480508, 57359677 #### [facility] [address] [place] [address] ALT No additional P-5'-P [Catalytic activity/Vol] 10 Int._Unit/L Normal 6-46 [facility] Comment on above: Performed By: #### 2 077561, 5330372, 3378319, 8542344, 8771109, 51611950 #### [facility] [address] [place] [address] AST [Catalytic activity/Vol] 11 Int._Unit/L Normal 5-43 [facility] Comment on above: Performed By: #### 2 691577, 2088770, 1670425, 0612526, 4616043, 26946100 #### [facility] [address] [place] [address] Bilirubin [Mass/Vol] 0.4 mg/dL Normal 0.0-1.[address] [facility] Comment on above: Performed By: #### 2 397477, 6364433, 5773791, 2287791, 0170252, 76365453 #### [facility] [address] [place] [address] Bilirubin.direct [Mass/Vol] 0.1 mg/dL Normal 0.0-0.4 [facility] Comment on above: Performed By: #### 2 289292, 9099649, 5019097, 9364626, 5111149, 67724005 #### [facility] [address] [place] [address] Bilirubin.indirect [Mass or moles/Vol] 0.3 mg/dL Normal 0.1-0.9 [facility] Comment on above: Performed By: #### 2 517009, 7983032, 8767107, 8114365, 6230922, 42462560 #### [facility] [address] [place] [address] Globulin (S) [Mass/Vol] 3.3 g/dL Normal 1.4-4.0 [facility] Comment on above: Performed By: #### 2 350012, 4282886, 1774458, 5018116, 7918506, 87447919 #### [facility] [address] [place] [address] Protein [Mass/Vol] 7.2 g/dL Normal 6.0-7.8 [facility] Comment on above: Performed By: #### 2 777525, 0104326, 6796827, 5300337, 2733500, 23867953 #### [facility] [address] [place] [address] Lipase Levelon 12-07-2023 Lipase [Catalytic activity/Vol] 66 U/L High 13-58 [facility] Comment on above: Performed By: #### 2 519127, 8277529, 2924270, 5797904, 8728455, 79273802 #### [facility] [address] [place] [address] SEROLOGYOrdered By: Marko Grant urgeon on 12-07-2023 Beta HCG ( test) Ql Negative (12/07/23 7:23 PM) Normal [facility] Man Sero UA With Cult Reflexon 2023 Bilirubin Ql (U) Negative Normal Negative [facility] Comment on above: Performed By: #### 1 1918799 #### [facility] [address] [place] [address] Clarity (U) CLEAR Normal Clear [facility] Comment on above: Performed By: #### 1 8332279 #### [facility] [address] [place] [address] Color (U) YELLOW Normal Yellow [facility] Comment on above: Performed By: #### 1 8224504 #### [facility] [address] [place] [address] Epithelial cells.squamous LM.HPF (Urine sed) [#/Area] 0-2 Normal 0-2 [facility] Comment on above: Performed By: #### 1 3878589 #### [facility] [address] [place] [address] Glucose Test strip (U) [Mass/Vol] Negative Normal Negative [facility] Comment on above: Performed By: #### 1 5070454 #### [facility] [address] [place] [address] Hemoglobin Ql (U) Negative Normal Negative [facility] Comment on above: Performed By: #### 1 5919696 #### [facility] [address] [place] [address] Ketones (U) [Mass/Vol] Negative Normal Negative [facility] Comment on above: Performed By: #### 1 1523624 #### [facility] [address] [place] [address] [place].plasma/[place] .RBC (Bld) [Mass ratio] 0-3 Normal 0-3 [facility] Comment on above: Performed By: #### 1 5104986 #### [facility] [address] [place] [address] Nitrite Ql (U) Negative Normal Negative [facility] Comment on above: Performed By: #### 1 6524218 #### [facility] [address] [place] [address] pH (U) 6.5 [pH] Invalid Interpretation Code 5.0-9.0 [facility] Comment on above: Performed By: #### 1 2779415 #### [facility] [address] [place] [address] Protein (U) [Mass/Vol] Negative Normal Negative [facility] Comment on above: Performed By: #### 1 5553169 #### [facility] [address] [place] [address] Specific gravity (U) [Rel density] <=1.005 Invalid Interpretation Code 1.005-1.030 [facility] Comment on above: Performed By: #### 1 5157725 #### [facility] [address] [place] [address] Type of Urine collection method Clean Catch Normal [facility] Comment on above: Performed By: #### 1 4097299 #### [facility] [address] [place] [address] Urobilinogen Qn (U) 0.2 {Keyla'U}/dL Normal 0.0-1.0 [facility] Comment on above: Performed By: #### 1 6020696 #### [facility] [address] [place] [address] WBC Auto Ql (U) Negative Normal Negative [facility] Comment on above: Performed By: #### 1 1270702 #### [facility] [address] [place] [address] WBC LM.HPF (Urine sed) [#/Area] 0-5 Normal 0-5 [facility] Comment on above: Performed By: #### 1 4478459 #### [facility] [address] [place] [address] URINALYSISOrdered By: Marko Headley on 12-07-2023 Bilirubin Ql (U) Negative (12/07/23 9:24 PM) Normal Negative [facility] UA Auto SS Clarity (U) Clear (12/07/23 9:24 PM) Normal Clear [facility] UA Auto SS Color (U) Yellow (12/07/23 9:24 PM) Normal Yellow [facility] UA Auto SS Epithelial cells.squamous LM.HPF (Urine sed) [#/Area] 0-2 /HPF Normal 0-2/HPF [facility] UA Aut o SS Glucose Test strip (U) [Mass/Vol] Negative (12/07/23 9:24 PM) Normal Negative [facility] UA Auto SS Hemoglobin Ql (U) Negative (12/07/23 9:24 PM) Normal Negative [facility] UA Auto SS Ketones (U) [Mass/Vol] Negative (12/07/23 9:24 PM) Normal Negative [facility] UA Auto SS [place].plasma/[place] .RBC (Bld) [Mass ratio] 0-3 /HPF Normal 0-3/HPF [facility] UA Auto SS Nitrite Ql (U) Negative (12/07/23 9:24 PM) Normal Negative [facility] UA Auto SS pH (U) 6.5 *NA* (12/07/23 9:24 PM) Invalid Interpretation Code 5.0 - 9.0 [facility] UA Auto SS Protein (U) [Mass/Vol] Negative (12/07/23 9:24 PM) Normal Negative [facility] UA Auto SS Specific gravity (U) [Rel density] <=1.005 *NA* (12/07/23 9:24 PM) Invalid Interpretation Code 1.005 - 1.030 [facility] UA Auto SS UA Spec Desc Clean Catch (12/07/23 9:24 PM) Normal [facility] UA Auto SS Urobilinogen Qn (U) 0.4745713 {Keyla'U}/dL Normal 0.0 - 1.0 EU/dL [facility] UA Auto SS WBC Auto Ql (U) Negative (12/07/23 9:24 PM) Normal Negative [facility] UA Auto SS WBC LM.HPF (Urine sed) [#/Area] 0-5 /HPF Normal 0-5/HPF [facility] UA Auto SS eGFRon 12-07-2023 eGFR 103 mL/min/1.73 m2 Normal >=59 [facility] Comment on above: Order Comment: Order added by Discern Expert. Performed By: #### 2 479149, 6540798, 0179596, 4840637, 1050359, 41181551 #### [facility] [address] [place] [address] OBSTETRIC ULTRASOUND WHIon 0 10-24-2023 [facility] C Urineon 10-03-2023 Bacteria identified Cx Nom (U) Microbiology PROCEDURE: Urine Culture [R1] SOURCE: U CleanCatch BODY SITE: COLLECTED DATE/TIME: 10/01/2023 17:55 EST RECEIVED DATE/TIME: 10/01/2023 18:50 EST START DATE/TIME: 10/01/2023 18:50 EST FREE TEXT SOURCE: Harry Devine DO, DO, John FINAL REPORTS Final Report [] Verified Date/Time: 10/03/2023 10:01 EST 2,000 cfu/ml Mixed skin contaminants Performing Locations R1: This test was performed at: [facility], [address] [place] [address], [address]- , , Normal [facility] Comment on above: Performed By: #### 2 976262, 4457376, 9744888, 8430853, 2220857, 99673525 #### [facility] [address] [place] [address] Nursing Assessmenton 024 Nursing Assessment [id number] .00TIFF Normal [facility] Auto Diffon 10-01-2023 Basophils/100 WBC (Bld) 0.3 % Normal 0.0-2.0 [facility] Comment on above: Order Comment: Order Added by Discern Expert. Performed By: #### 2 103730, 9423888, 6220197, 2382627, 1367429, 77196022 #### [facility] [address] [place] [address] Basophils/Leukocytes Auto (Bld) [Pure # fraction] 0.0 E9/L Normal 0.0-0.2 [facility] Comment on above: Order Comment: Order Added by Discern Expert. Performed By: #### 2 636368, 5917507, 8145612, 2888624, 2426084, 03057597 #### [facility] [address] [place] [address] Eosinophils/100 WBC (Bld) 1.2 % Normal 0.0-8.0 [facility] Comment on above: Order Comment: Order Added by Discern Expert. Performed By: #### 2 103624, 9182921, 1957801, 6788505, 3109155, 19543172 #### [facility] [address] [place] [address] Eosinophils/Leukocytes Auto (Bld) [Pure # fraction] 0.1 E9/L Normal 0.0-0.5 [facility] Comment on above: Order Comment: Order Added by Discern Expert. Performed By: #### 2 216219, 5604789, 3451691, 6481683, 6893769, 34318821 #### [facility] [address] [place] [address] Lymphocytes/100 WBC (Bld) 18.3 % Normal 14.0-50.0 [facility] Comment on above: Order Comment: Order Added by Discern Expert. Performed By: #### 2 164593, 9602596, 4316164, 9323982, 2194986, 13793225 #### [facility] [address] [place] [address] Lymphocytes/Leukocytes Auto (Bld) [Pure # fraction] 1.1 E9/L Normal 1.0-4.0 [facility] Comment on above: Order Comment: Order Added by Discern Expert. Performed By: #### 2 424133, 6114493, 6622853, 1962744, 7526101, 61719667 #### [facility] [address] [place] [address] Monocytes/100 WBC (Bld) 7.6 % Normal 4.0-14.0 [facility] Comment on above: Order Comment: Order Added by Discern Expert. Performed By: #### 2 865163, 1209621, 8680665, 5805717, 4565951, 23211912 #### [facility] [address] [place] [address] Monocytes/Leukocytes Auto (Bld) [Pure # fraction] 0.5 E9/L Normal 0.2-1.0 [facility] Comment on above: Order Comment: Order Added by Discern Expert. Performed By: #### 2 706927, 0971462, 3382044, 5310544, 3658993, 63947603 #### [facility] [address] [place] [address] 17008 Neutrophils/100 WBC (Bld) 72.6 % Normal 36.0-75.0 [facility] Comment on above: Order Comment: Order Added by Discern Expert. Performed By: #### 2 030602, 3182292, 2370982, 3558299, 7390954, 68070847 #### [facility] [address] [place] [address] Neutrophils/Leukocytes Auto (Bld) [Pure # fraction] 4.6 E9/L Normal 2.0-7.5 [facility] Comment on above: Order Comment: Order Added by Discern Expert. Performed By: #### 2 549882, 8699346, 9543612, 0714014, 6316723, 24124723 #### [facility] [address] [place] [address] BMPon 10-01-2023 Anion gap [Moles/Vol] 12 mmol/L Normal 6-16 [facility] Comment on above: Performed By: #### 2 465648, 4181149, 5227970, 3395104, 8487739, 34315291 #### [facility] [address] [place] [address] BUN/Creat Ratio 13 No Units Normal 10-20 [facility] Comment on above: Performed By: #### 2 514014, 3305071, 8090629, 0580336, 3147316, 64045247 #### [facility] [address] [place] [address] Calcium [Mass/Vol] 8.7 mg/dL Low 8.9-11.1 [facility] Comment on above: Performed By: #### 2 857552, 1979994, 9363717, 8782861, 7606664, 56202577 #### [facility] [address] [place] [address] Chloride [Moles/Vol] 109 mmol/L Normal 101-[address] [facility] Comment on above: Performed By: #### 2 160578, 1813646, 7467107, 4657620, 0715030, 36033572 #### [facility] [address] [place] [address] CO2 [Moles/Vol] 18 mmol/L Low 21-31 [facility] Comment on above: Performed By: #### 2 869251, 0938873, 4794926, 2323242, 3872368, 11904530 #### [facility] [address] [place] [address] Creatinine [Mass/Vol] 0.6 mg/dL Normal 0.5-1.3 [facility] Comment on above: Performed By: #### 2 905562, 5521614, 7982457, 1668169, 8963614, 93501673 #### [facility] [address] [place] [address] Glucose [Mass/Vol] 72 mg/dL Normal 55-199 [facility] Comment on above: Performed By: #### 2 517791, 2450341, 7796729, 9427002, 1047127, 05981900 #### [facility] [address] [place] [address] Potassium [Moles/Vol] 3.8 mmol/L Normal 3.5-5.3 [facility] Comment on above: Performed By: #### 2 131958, 2257983, 4558841, 6652520, 8471868, 55025765 #### [facility] [address] [place] [address] Sodium [Moles/Vol] 135 mmol/L Normal 135-145 [facility] Comment on above: Performed By: #### 2 709475, 5608637, 2503834, 1289172, 7323076, 83696136 #### [facility] [address] [place] [address] Urea nitrogen [Mass/Vol] 8 mg/dL Normal 5-21 [facility] Comment on above: Performed By: #### 2 507624, 1735204, 6025180, 8177690, 3179641, 96980433 #### [facility] [address] [place] [address] CBC w/ Auto Diffon 4 Erythrocyte distribution width (RBC) [Ratio] 13.7 % Normal 10.9-14.2 [facility] Comment on above: Performed By: #### 2 514203, 7900102, 4586788, 6326219, 4309731, 61245797 #### [facility] [address] [place] [address] Hematocrit (Bld) [Volume fraction] 30.6 % Low 34.0-46.0 [facility] Comment on above: Performed By: #### 2 924998, 4234976, 8430115, 9929503, 2616824, 13491048 #### [facility] [address] [place] [address] Hemoglobin (Bld) [Mass/Vol] 10.2 g/dL Low 12.0-16.0 [facility] Comment on above: Performed By: #### 2 116979, 7196361, 1867054, 0339400, 0662313, 60458777 #### [facility] [address] [place], [place] [address] MCH (RBC) [Entitic mass] 26.9 pg Low 27.0-34.0 [facility] Comment on above: Performed By: #### 2 763710, 9594740, 9661178, 1616931, 6035289, 35984538 #### [facility] [address] [place], [place] [address] MCHC (RBC) [Mass/Vol] 33.3 g/dL Normal 31.4-36.0 [facility] Comment on above: Performed By: #### 2 782715, 1432431, 0733927, 6291676, 3733941, 44129865 #### [facility] [address] [place], [place] [address] MCV (RBC) [Entitic vol] 80.6 fL Normal 80.0-100.0 [facility] Comment on above: Performed By: #### 2 370067, 6955521, 6936278, 6970729, 6926658, 84072888 #### [facility] [address] [place] [address] Platelet mean volume (Bld) [Entitic vol] 8.4 fL Normal 6.4-10.8 [facility] Comment on above: Performed By: #### 2 935112, 3845354, 6637508, 7491617, 0774460, 69787366 #### [facility] [address] [place] [address] Platelets (Bld) [#/Vol] 246.0 E9/L Normal 150.0-500.0 [facility] Comment on above: Performed By: #### 2 212206, 6041146, 7137790, 8321920, 6687113, 84747332 #### [facility] [address] [place] [address] RBC (Bld) [#/Vol] 3.8 E12/L Low 4.3-5.9 [facility] Comment on above: Performed By: #### 2 166184, 7693615, 7063986, 9835165, 9702655, 73008759 #### [facility] [address] [place] [address] WBC corrected for nucl RBC Auto (Bld) [#/Vol] 6.3 E9/L Normal 4.0-11.0 [facility] Comment on above: Performed By: #### 2 018984, 8200509, 4731314, 7993202, 9011435, 43500431 #### [facility] [address] [place] [address] Consent for Treatmenton Consent for Treatment [id number] [id number]# [id number] Normal [facility] Consent for Treatment [id number] .00TIFF Normal [facility] Consent for Treatment [id number] .00TIFF Normal [facility] Discharge Instructionson Discharge Instructions [id number] .00TIFF Normal [facility] Discharge Instructions [id number]#1 .00TIFF Normal [facility] ED Clinical Summaryon 2023 ED Clinical Summary [address] [address] ED Clinical Summary Person Information Name: ROLA AGUILAR Elena/[facility] Age: 28 Years : 1995 Sex: Female Language: Honduran PCP: Kale RENDON MD Marital Status: Single Phone: [phone] Visit Id: Visit Reason: Rectal bleed; Nausea; [...] 10/01/2023 21:04:09 10/01/2023 21:04:09 10/01/2023 21:04:09 ADDRESS: [facility] [address] [place] [phone] PHYS DOC NOTES: MEDICAL INFORMATION: Prescriptions Given: New Medications [facility] #[id number] [address] [place] [id number], [phone] cephalexin (Keflex 500 mg Cap) 1 Capsules By Mouth every 12 hours for 7 Days. Refills: 0. Medications to Continue Taking That Have Changed [facility] #[id number] [address] [place] [id number], [phone] START: ondansetron (ondansetron 4 mg Dis Tab) [...] to Continue with No Changes Other Medications acetaminophen-hydroco done (Menasha 325 mg-5 mg oral tablet) 1 Tablets By Mouth every 6 hours as needed for pain. Refills: 0. acetaminophen-hydroco done (Menasha 325 mg-5 mg oral tablet) 1 Tablets By Mouth every 6 hours as needed for pain. Refills: 0. acetaminophen-oxycodo ne (Percocet 325 mg-5 mg Tab) 1 Tablets By Mouth every 6 hours as needed as needed for pain. Refills: 0. acetaminophen-oxycodo ne (Percocet 5 mg-325 mg oral tablet) 1 Tablets By Mouth every 6 hours. Refills: 0. acetaminophen-oxycodo ne (Percocet 5 mg-325 mg oral tablet) 1 Tablets By Mouth every 6 hours. Refills: 0. acetaminophen-oxycodo ne (Percocet 5 mg-325 mg oral tablet) 1 [...] Mouth ev (more content not included)... Normal [facility] ED Note-Physicianon 10-01-19 ED Note-Physician Basic Information Time Seen: Harry Devine DO 10/01/2023 17:14 Chief Complaint pt. is 35 weeks . , sees [facility], hx Crohns with ostomy c/o rectal bleeding with clots since 199. nausea, no vomiting. has felt baby moving today. History of Present Illness 28 female presents emergency department with concerns for Crohn's flareup. Patient is 35 weeks and does have extensive history of Crohn's disease for which she follows with GI out of [facility] also follows with OB out of [facility]. She states over the last 24 [...] day(s), # 14 cap(s), Refills(s) 0, Pharmacy: [facility]/pharmacy #[id number], 167, cm, 10/01/23 17:11:00 EST, Height/Length [...] day(s), # 10 tab(s), Refills(s) 0, [id number], cm, 10/01/23 17:11:00 EST, Height/Length [...] 17:25:00 EST, Inf (more content not included)... [place] Comment on above: Result Comment: Elec tronically [...] specializes in diseases of the digestive tract (diet tech). How is this treated? There is no [...] these instructions at home: Medicines ? Take kxov-syu-ufnpmqv and prescription medicines only as told by [...] contain jonny (more content not included)... Normal [facility] ED Patient Summaryon 024 ED Patient Summary [place] [id number] Patient Discharge Instructions Person Information Name: LAUREN ROLA Ward Age: 28 Years Arrival Date: 10/01/2023 16:59:16 Discharge Diagnosis: Dehydration; Exacerbation of Crohn's disease; UTI (urinary tract infection) Primary Care Physician: Kale RENDON MD Provider Information Primary Provider: Harry Devine DO Advanced Implementation Lead:None The exam and treatment you received in the Emergency Department were for an urgent problem and are not intended as complete care. It is important that you follow up with a doctor, nurse practitioner, or physician?s back office medical assistant for ongoing care. If your symptoms become [...] With: Address: When: Your GI physician and GEOTECHNICAL ENGINEERING TECHNICIAN physician In 3 days 10/04/2023 In the event that this physician does not participate in your insurance network, please consult with your insurance company to find a nearby participating provider. Patient Education Materials: Dehydration, Adult, Ubjw-ci-Pntw; Crohn's Disease A MESSAGE TO ALL PATIENTS REGARDING OPIOIDS PRESCRIPTION OPIOIDS: WHAT YOU NEED TO KNOW Prescription opioids can be used to help relieve kwvpiile-vh-dgbldb pain and are often prescribed following a [...] guidance from the Food and Drug Administration (www.fda.gov/Drugs/Re sourcesForYou). ? Visit www.cdc.gov/drugoverd ose to learn about the risks of opioids abuse and overdose. ? If you believe you may be struggling with addiction, tell your health career representative and ask for guidance or call [facility]?S [employer] Helpline at [phone]. (more content not included)... Normal [facility] Hep Func Panelon 10-01-2023 Albumin [Mass/Vol] 3.5 g/dL Normal 3.3-5.0 [facility] Comment on above: Performed By: #### 2 599781, 6307191, 1903687, 3012493, 9537045, 34588260 #### [facility] [address] [place] [address] Albumin/Globulin [Mass ratio] 0.9 {ratio} Low 1.1-2.2 [facility] Comment on above: Performed By: #### 2 564252, 0214113, 8788178, 3816129, 7274304, 71452795 #### [facility] [address] [place] [address] Alk Phos 124 Int._Unit/L High 21-98 [facility] Comment on above: Performed By: #### 2 006514, 1616859, 8292041, 8670881, 8064229, 58771017 #### [facility] [address] [place] [address] ALT 9 Int._Unit/L Normal 6-46 [facility] Comment on above: Performed By: #### 2 676416, 3096211, 8433646, 5702016, 3493262, 97546845 #### [facility] [address] [place] [address] AST 10 Int._Unit/L Normal 5-43 [facility] Comment on above: Performed By: #### 2 011269, 3674590, 6386214, 0221393, 7165515, 62119672 #### [facility] [address] [place] [address] Bili Direct 0.1 mg/dL Normal 0.0-0.4 [facility] Comment on above: Performed By: #### 2 828739, 9113382, 2523965, 4807224, 3653171, 37322214 #### [facility] [address] [place] [address] Bili Indirect 0.4 mg/dL Normal 0.1-0.9 [facility] Comment on above: Performed By: #### 2 118651, 7789122, 8385547, 2390222, 6837963, 60061987 #### [facility] [address] [place] [address] Bili Total 0.5 mg/dL Normal 0.0-1.1 [facility] Comment on above: Performed By: #### 2 180357, 6448822, 5765260, 2532941, 0101986, 70820935 #### [facility] [address] [place], [place] [address] Globulin (S) [Mass/Vol] 3.7 g/dL Normal 1.4-4.0 [facility] Comment on above: Performed By: #### 2 484205, 6427595, 7638708, 8647907, 6152186, 64340369 #### [facility] [address] [place] [address] Protein [Mass/Vol] 7.2 g/dL Normal 6.0-7.8 [facility] Comment on above: Performed By: #### 2 063101, 1128923, 5216939, 3877328, 3901485, 16996757 #### [facility] [address] [place] [id number] Inpatient Clinical Summaryon 10-01-2023 Inpatient Clinical Summary [address] [address] Clinical Summary Person Information Name: ROLA AGUILAR Elena/[facility] Age: 28 Years : 1995 Sex: Female PCP: Kale RENDON MD Marital Status: Single Phone: [phone] Race: White Ethnicity: Non- or Language: Honduran Visit Id: Visit Reason: Speciality: Acuity: Obs Enc Type: OB Triage Med Service: Obstetrics Arrival: 10/01/2023 21:18:32 Discharge: 10/01/2023 23:20:00 Dispo Type: Home (Routine DC) Address: [address] [place] [address] [address] [place] [id number] Provider Notes: Diagnosis: Problems Active (09/06/2023) Smoker [...] Return if ruptured membranes 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 In the event that this physician does not participate in your insurance network, please consult with your insurance company to find a nearby participating provider. Comment: LAUREN Stern KRISTEN D, have received the attached patient education materials/instruction s and have verbalized understanding. Patient Signature Date Clinican/Nurse Signature Date MEDICATION LIST Medications to Continue with No Changes Other Medications cephalexin (Keflex 500 mg Cap) 1 Capsules By Mouth every 12 hours for 7 Days. Refills: 0. Last Dose: ____Next Dose: ____ cyproheptadine Last Dose: ____Next Dose: ____ hydrOXYzine (Vistaril 25 mg Tab) 1-2 tab(s) By Mouth 4 times a day as needed as needed for anxiety. Refills: 0. Last Dose: ____Next Dose: ____ iron sucrose (Venofer) Last Dose: ____Next Dose: ____ metoclopramide (metoclopramide 10 mg oral tablet, disintegrating) 1 Tablets By Mouth every 6 hours as needed Nausea/Vomiting. Refills: 0. Last Dose: ____Next Dose: ____ metoclopramide (Reglan) Last Dose: ____Next Dose: ____ ondansetron (ondansetron 4 mg Dis Tab) 1 Tablets By Mouth every 6 hours for 3 Days. Refills: 0. Last Dose: ____Next Dose: ____ ondansetron (Zofran 4 mg Tab) 1 Tablets By Mouth every 8 hours as needed Nausea/Vomiting. Refills: 0. Last Dose: ____Next Dose: ____ ondansetron (Zofran 4 mg Tab) Last Dose: ____Next Dose: ____ ondansetron (Zofran ODT 4 mg Tab-Dis) 1 Tablets By Mouth every 8 hours. Refills: 0. Last Dose: ____Next Dose: ____ promethazine (promethazine 25 mg Tab) 1 Tablets By Mouth every 6 hours as needed as needed for nausea/vomiting. Refills: 0. Last Dose: ____Next Dose: ____ sertraline (Zoloft) Last Dose: ____Next Dose: ____ Pharmacy Information: [facility] PATIENT EDUCATION INFORMATION Instructions: Medication Leaflets: You may receive a survey from [employer] asking you to rate your care experience. [...] signed up for this yet, please contact [facility] at [phone] to get signed up today. YANNICK Award [...] QR code below. Thank you for choosing [facility] (more content not included)... Normal [facility] Insurance Correspondenceon 0 10-01-2023 Insurance Correspondence [id number] .[id number] Normal [facility] Lipase Levelon 10-01-2023 Lipase Lvl 60 unit/L High 13-58 [facility] Comment on above: Performed By: #### 2 594498, 1105324, 4448096, 5316541, 4194310, 41044181 #### [facility] [address] [place] [address] PT & PTTon 10-01-2023 aPTT Coag (PPP) [Time] 26.6 second(s) Normal 25.1-36.5 [facility] Comment on above: Result Comment: Para meter [...] the same coagulation reagent and instrumentation as [facility]. Currently there are no coagulation studies available worldwide for children to 14 days, and no normal ranges. Heparin therapeutic range (represented by Anti-Factor Xa activity of 0.2 - 0.4 U/mL) corresponds to PTT of 56.6 - 109.0 sec. Performed By: #### 2 306255, 1764979, 6285565, 7294001, 5310957, 44367614 #### [facility] [address] [place] [address] INR Coag (PPP) [Relative time] 1.0 {INR} Invalid Interpretation Code [facility] Comment on above: Result Comment: INR results are specifically intended to assess patients stabilized on long-term Anticoagulation therapy suggested INR?s ?Less Intensive Anticoagulation? 2.0 ? 3.0 Conventional Range 3.0 ? 4.5 Performed By: #### 2 917637, 2284802, 6008616, 5657274, 5452765, 09543343 #### [facility] [address] [place] [address] PT Coag (PPP) [Time] 11.3 second(s) Normal 9.4-12.5 [facility] Comment on above: Result Comment: 15 d [...] the same coagulation reagent and instrumentation as [facility]. Currently there are no coagulation studies available worldwide for children to 14 days, and no normal ranges. Performed By: #### 2 216005, 8912822, 3885160, 8049765, 4772500, 41170935 #### [facility] [address] [place] [address] UA With Cult Reflexon 2023 Bacteria LM Ql (Urine sed) 2+ /HPF Abnormal Trace [facility] Comment on above: Performed By: #### 2 910472, 9373060, 5994259, 4409379, 6918299, 35928841 #### [facility] [address] [place] [address] Bilirubin Ql (U) Negative Normal Negative [facility] Comment on above: Performed By: #### 2 211146, 1323642, 5120553, 3952689, 5129343, 18672051 #### [facility] [address] [place] [address] Clarity (U) CLOUDY Abnormal Clear [facility] Comment on above: Performed By: #### 2 336969, 1528786, 6382989, 0249040, 8975242, 75782598 #### [facility] [address] [place] [address] Color (U) YELLOW Normal Yellow [facility] Comment on above: Performed By: #### 2 991489, 5595931, 6399076, 1610611, 9837587, 27856760 #### [facility] [address] [place] [address] Epithelial cells.squamous LM.HPF (Urine sed) [#/Area] 3-4 Normal 0-2 [facility] Comment on above: Performed By: #### 2 256122, 3405474, 1890452, 8766005, 8709832, 81391188 #### [facility] [address] [place] [id number] Glucose Test strip (U) [Mass/Vol] Negative Normal Negative [facility] Comment on above: Performed By: #### 2 403629, 3889192, 4431678, 6146140, 3529943, 54275575 #### [facility] [address] [place] [address] Hemoglobin Ql (U) Negative Normal Negative [facility] Comment on above: Performed By: #### 2 203824, 8631633, 1821809, 7236529, 0412506, 07588297 #### [facility] [address] [place] [address] Ketones (U) [Mass/Vol] Negative Normal Negative [facility] Comment on above: Performed By: #### 2 279352, 4105148, 0808608, 0822362, 4421763, 29606572 #### [facility] [address] [place] [address] [place].plasma/[place] .RBC (Bld) [Mass ratio] 0-3 Normal 0-3 [facility] Comment on above: Performed By: #### 2 784411, 6208023, 3978290, 0787577, 3758151, 09385165 #### [facility] [address] [place] [address] Mucus Ql (Urine sed) 1+ Normal [facility] Comment on above: Performed By: #### 2 192223, 4992390, 8931964, 3912370, 0230817, 07830531 #### [facility] [address] [place] [address] Nitrite Ql (U) Negative Normal Negative [facility] Comment on above: Performed By: #### 2 815773, 9533896, 3627259, 2280436, 7903487, 93235199 #### [facility] [address] [place] [address] pH (U) 6.0 [pH] Invalid Interpretation Code 5.0-9.0 [facility] Comment on above: Performed By: #### 2 795689, 3708091, 4287757, 8817255, 0634116, 31214425 #### [facility] [address] [place] [address] Protein (U) [Mass/Vol] TRACE Abnormal Negative Fi [facility] Comment on above: Performed By: #### 2 710421, 7181275, 5502630, 5000822, 1835797, 56579833 #### [facility] [address] [place] [address] Specific gravity (U) [Rel density] >=1.030 Invalid Interpretation Code 1.005-1.030 [facility] Comment on above: Performed By: #### 2 453763, 3692724, 5140250, 4228158, 8018025, 66515692 #### [facility] [address] [place] [address] Type of Urine collection method Clean Catch Normal [facility] Comment on above: Performed By: #### 2 956988, 3136612, 3536134, 5784772, 0634739, 20916785 #### [facility] [address] [place] [address] 90149 Urobilinogen Qn (U) 0.2 {Keyla'U}/dL Normal 0.0-1.0 [facility] Comment on above: Performed By: #### 2 841821, 8917831, 5656186, 8681721, 2871815, 14754449 #### [facility] [address] [place] [address] WBC Auto Ql (U) 1+ Abnormal Negative [facility] Comment on above: Performed By: #### 2 472983, 2408856, 5678998, 9767035, 5389677, 39953559 #### [facility] [address] [place] [address] WBC LM.HPF (Urine sed) [#/Area] 16-25 Abnormal 0-5 [facility] Comment on above: Performed By: #### 2 094205, 7066991, 8969243, 5827444, 9335664, 81975221 #### [facility] [address] [place] [address] eGFRon 10-01-2023 GFR/1.73 sq M.predicted among non-blacks MDRD (S/P/Bld) [Vol rate/Area] mL/min/{1.73_m2} Normal >=59 [facility] Comment on above: Order Comment: Order added by Discern Expert. Performed By: #### 2 331354, 9170709, 0899515, 2647825, 7005096, 64947040 #### [facility] [address] [place] [address] ED Note-Physicianon 09-21-20 ED Note-Physician Basic Information Time Seen: Heriberto Cervantes MD 09/06/2023 15:00 Chief Complaint pt. states [...] . She sees Dr. Costa on the [facility]. Review of Systems A 10 point review of systems is negative except as noted above. Medical and Surgical History: Reviewed and noted Social history: Lives at home Tobacco: Denies Physical Exam Vitals & Measurements T: 36.8 ?C(Oral) HR: 80(Monitored) RR: 16 BP: 122/80 SpO2: 98% HT: 167 cm WT: 91.9 kg BMI: 32.95 Pleasant 28-year-old female alert and oriented x 3 [place] Coma Scale 15. Chest wall is nontender. [...] Making The case was discussed with our manufacturing director Dr. Lopez. Once the patient's laboratory studies [...] D deficiency Procedure/Surgical History Colonoscopy (01/18/2023), Colonoscopy (2014), Esophagogastroduodeno scopy, History of ileostomy. Medications Inpatient No active inpatient medications Home Latuda 20 mg oral tablet, 20 mg= 1 tab(s), Oral, Daily, Not taking: meds changed metoclopramide 10 mg oral tablet, disintegrating, 10 mg= 1 tab(s), Oral, q6hr, PRN Menasha 325 mg-5 mg oral tablet, 1 tab(s), Oral, q6hr, PRN, Not taking: not indicated Menasha 325 mg-5 mg oral tablet, 1 tab(s), [...] Alcohol Use, (more content not included)... Normal [facility] Comment on above: Result Comment: Elec tronically Signed By: Heriberto Cervantes MD\.br\Date and Time Signed: 09/21/23 01:13 EST\.br\Electronically Co-Signed By: Martha Pro CMA\.br\Date and Time Co-Signed: 10/07/23 07:57 EST Nursing Assessmenton 023 Nursing Assessment [id number]# 1.00TIFF Normal [facility] C Urineon 09-08-2023 Bacteria identified Cx Nom (U) Microbiology PROCEDURE: Urine Culture [R1] SOURCE: U CleanCatch BODY SITE: COLLECTED DATE/TIME: 09/06/2023 16:14 EST RECEIVED DATE/TIME: 09/06/2023 17:39 EST START DATE/TIME: 09/06/2023 17:39 EST FREE TEXT SOURCE: Heriberto Cervantes MD, MD, Tim FINAL REPORTS Final Report [] Verified Date/Time: 09/08/2023 07:27 EST <10,000 cfu/ml Mixed skin contaminants Performing Locations R1: This test was performed at: [facility], [address] [place] [address], [address] , , [place] Comment on above: Performed By: #### 2 537236, 5869323, 6620444, 0822879, 3158988, 54763082 #### [facility] [address] [place] [address] XR Spine Lumbosacral 2 or 3 Viewson 09-07-2023 XR Spine Lumbosacral 2 or 3 Views Exam Date/Time: 09/06/2023 20:55 EST Reason for Exam: Back pain Report IMPRESSION: NEGATIVE LUMBOSACRAL SPINE. CLINICAL HISTORY: Back pain COMPARISON: NONE FINDINGS: Lateral projection of the lumbosacral spine demonstrate no evidence of a fracture, subluxation, bone or joint abnormality. Ordering Provider: Heriberto Cervantes FINAL REPORT Dictated: 09/07/2023 9:36 am SignAnshul granados MD Signed (Electronic Signature): 09/07/2023 9:36 am Signed by: Anshul Cardoza MD Transcribed by: CLARICE Technologist: DON Technical Comments Radiation Dose: Ka,r in mGy = na DAP = na Normal [facility] ABO/Rhon 09-06-2023 ABO/Rh Positive Invalid Interpretation Code [facility] Comment on above: Performed By: #### 1 [id number] #### [facility] [address] [place] [address] ABO/Rh History Checkon 09-06 ABO/Rh History Check Verified Hx Blood Type Normal [facility] Comment on above: Performed By: #### 1 [id number] #### [facility] [address] [place] [address] ABSCon 09-06-2023 ABSC Gel Interp Negative Normal [facility] Comment on above: Performed By: #### 1 1054830 #### [facility] [address] [place] [address] BLOOD BANKOrdered By: Martha Schultz on 09-06-2023 ABO/Rh Interp Positive Invalid Interpretation Code [facility] BB Subsection ABSC Gel Interp Negative (09/06/23 4:12 PM) Normal [facility] BB Subsection BMPon 09-06-2023 Anion gap [Moles/Vol] 11 mmol/L Normal 6-16 [facility] Comment on above: Performed By: #### 1 1967271, 3933210, 7802801, 7854589 ####[facility] [address] [place] [address] BUN/Creat Ratio 12 No Units Normal 10-20 [facility] Comment on above: Performed By: #### 1 7416770, 2506441, 4295515, 0758504 ####[facility] [address] [place] [address] Calcium [Mass/Vol] 8.4 mg/dL Low 8.9-11.1 [facility] Comment on above: Performed By: #### 1 0937462, 4533835, 5210785, 2444284 ####[facility] [address] [place] [address] Chloride [Moles/Vol] 108 mmol/L Normal 101-[address] [facility] Comment on above: Performed By: #### 1 0170143, 1347211, 0144343, 7620059 ####[facility] [address] [place] [address] CO2 [Moles/Vol] 21 mmol/L Normal 21-31 [facility] Comment on above: Performed By: #### 1 7063548, 5401613, 8020484, 1133197 ####[facility] [address] [place] [address] Creatinine [Mass/Vol] 0.6 mg/dL Normal 0.5-1.3 [facility] Comment on above: Performed By: #### 1 3377530, 2772165, 1413269, 1128203 ####[facility] [address] [place] [address] Glucose [Mass/Vol] 87 mg/dL Normal 55-199 [facility] Comment on above: Performed By: #### 1 3983295, 5924164, 7542729, 7434852 ####[facility] [address] [place] [address] Potassium [Moles/Vol] 3.7 mmol/L Normal 3.5-5.3 [facility] Comment on above: Performed By: #### 1 7384996, 4258911, 9658058, 3865419 ####[facility] [address] [place] [address] Sodium [Moles/Vol] 136 mmol/L Normal 135-145 [facility] Comment on above: Performed By: #### 1 2399303, 7930900, 7732246, 7306818 ####[facility] [address] [place] [address] Urea nitrogen [Mass/Vol] 7 mg/dL Normal 5-21 [facility] Comment on above: Performed By: #### 1 9939393, 4759705, 0527008, 2381626 ####[facility] [address] [place] [address] BUNon 09-06-2023 Urea nitrogen [Mass/Vol] 7 mg/dL Normal 5-21 [facility] Comment on above: Performed By: #### 2 655707, 37736611, 63397170, 2314793, 2113826, 0201116, 7080511, 3299337 ####[facility] [address] [place] [address] Blood Bank ID#on 09-06-2023 BBID# [id number] Invalid Interpretation Code [facility] Comment on above: Performed By: #### 1 [id number] #### [facility] [address] [place] [address] CBC w/Indiceson 09-06-2023 Erythrocyte distribution width (RBC) [Ratio] 13.9 % Normal 10.9-14.2 [facility] Comment on above: Performed By: #### 2 719583, 23121917, 89307737, 7294278, 5741419, 9672938, 8141056, 6036701 ####[facility] [address] [place] [address] Hematocrit (Bld) [Volume fraction] 30.7 % Low 34.0-46.0 [facility] Comment on above: Performed By: #### 2 968382, 60047192, 48989448, 2822293, 0261422, 3626707, 6712123, 3599846 ####[facility] [address] [place] [address] Hemoglobin (Bld) [Mass/Vol] 10.4 g/dL Low 12.0-16.0 [facility] Comment on above: Performed By: #### 2 641539, 31415377, 77914795, 0036712, 8674218, 1108840, 5503001, 5111731 ####[facility] [address] [place] [address] MCH (RBC) [Entitic mass] 28.3 pg Normal 27.0-34.0 [facility] Comment on above: Performed By: #### 2 826216, 48806756, 22656067, 1187786, 7658825, 7409783, 3332148, 9866268 ####[facility] [address] [place] [address]3357 MCHC (RBC) [Mass/Vol] 33.8 g/dL Normal 31.4-36.0 [facility] Comment on above: Performed By: #### 2 610353, 96303406, 56346653, 0819766, 2500004, 9960107, 9493244, 5135233 ####[place] [address] [place] [address] MCV (RBC) [Entitic vol] 83.7 fL Normal 80.0-100.0 [facility] Comment on above: Performed By: #### 2 852736, 33930949, 22517789, 1680480, 4646730, 4700641, 3231468, 5664888 ####[place] [address] Platelet mean volume (Bld) [Entitic vol] 8.1 fL Normal 6.4-10.8 [facility] Comment on above: Performed By: #### 2 216639, 72321211, 02032817, 0116809, 0323178, 5905679, 6521635, 7149951 ####[address] [address] Platelets (Bld) [#/Vol] 218.0 E9/L Normal 150.0-500.0 [facility] Comment on above: Performed By: #### 2 041061, 58429252, 70166921, 6940424, 9703960, 0966318, 2111625, 0826520 ####[place] [address] [place] [address] RBC (Bld) [#/Vol] 3.7 E12/L Low 4.3-5.9 [facility] Comment on above: Performed By: #### 2 931631, 43852933, 32238968, 3260147, 1956225, 3760657, 7684982, 3117766 ####[facility] [address] [place] [address] WBC corrected for nucl RBC Auto (Bld) [#/Vol] 5.2 E9/L Normal 4.0-11.0 [facility] Comment on above: Performed By: #### 2 242859, 47354884, 73490804, 0548568, 8063992, 7093153, 5541799, 5374834 ####[facility] [address] [place] [address] CHEMISTRYOrdered By: SYSTEM SYSTEM on 09-06-2023 Albumin [...] - 20 Remisol Chem COAGULATIONOrdered By: Car david Mason on 09-06-2023 aPTT Coag (PPP) [Time] 26.7 s Normal 25.1 - 36.5 second(s) [facility] Auto Coag Comment on above: Interpretive Data: P arameter 15 days - 4 weeks 1 - 5 months 6 - 11 months 1 - 5 years 6 - 10 years 11 - 17 years PTT Mean: 35.4 (27.6-45.6) Mean: 33.5 (24.8-40.7) Mean: 32.4 (25.1-40.7) Mean: 31.6 (24.0-39.2) Mean: 31.6 (26.9-38.7) Mean: 31.0 (24.6-38.4) Pediatric Reference ranges were obtained from a study by Chalri Araya et al. prepared from 1437 samples obtained at 7 different centers using the same coagulation reagent and instrumentation as [facility]. Currently there are no coagulation studies available worldwide for children to 14 days, and no normal ranges. Heparin therapeutic range (represented by Anti-Factor Xa activity of 0.2 - 0.4 U/mL) corresponds to PTT of 56.6 - 109.0 sec. Fibrinogen Coag (PPP) [Mass/Vol] 420 mg/dL High 200 - 393 mg/dL [facility] Auto Coag INR Coag (PPP) [Relative time] 1.0 {INR} Invalid Interpretation Code [facility] Auto Coag Comment on above: Interpretive Data: I NR results are specifically intended to assess patients stabilized on long-term Anticoagulation therapy suggested INR s Less Intensive Anticoagulation 2.0 3.0 Conventional Range 3.0 4.5 PT Coag (PPP) [Time] 10.7 s Normal 9.4 - 1 2.5 second(s) [facility] Auto Coag Comment on above: Interpretive Data: [...] the same coagulation reagent and instrumentation as [facility]. Currently there are no coagulation studies available worldwide for children to 14 days, and no normal ranges. Consent for Treatmenton 08-23 Consent for Treatment [id number]#1 .00TIFF Normal [facility] Consent for Treatment [id number]#1 .00TIFF Normal [facility] Creatinineon 09-06-2023 Creatinine [Mass/Vol] 0.6 mg/dL Normal 0.5-1.3 [facility] Comment on above: Performed By: #### 2 485779, 98317130, 06135762, 3783024, 9479200, 3806292, 7724848, 9300050 ####[facility] [address] [place] [address] Discharge Instructionson Discharge Instructions [id number]#1 .00TIFF Normal [facility] ED Traumaon 09-06-2023 ED Trauma [id number]# 1.00TIFF Normal [facility] Fibrinogenon 09-06-2023 Fibrinogen Coag (PPP) [Mass/Vol] 420 mg/dL High 200-393 [facility] Comment on above: Performed By: #### 2 070166, 34060059, 72800393, 7605577, 7982913, 3267506, 1252917, 3807705 ####[facility] [address] [place] [address] HEMATOLOGYOrdered By: Martha Schultz on 09-06-2023 Erythrocyte distribution width (RBC) [Ratio] 13.9 % Normal 10.9 - 14.2 % [facility] HemeAutoSS Hematocrit (Bld) [Volume fraction] 30.7 % Low 34.0 - 46.0 % [facility]eAutoSS Hemoglobin (Bld) [Mass/Vol] 10.4 g/dL Low 12.0 - 16.0 gm/dL [facility] HemeAutoSS MCH (RBC) [Entitic mass] 28.3 pg Normal 27.0 - 34.0 pg [facility]eAutoSS MCHC (RBC) [Mass/Vol] 33.8 g/dL Normal 31.4 - 36.0 gm/dL [facility] HemeAutoSS MCV (RBC) [Entitic vol] 83.7 fL Normal 80.0 - 100.0 fL [facility] HemeAutoSS Platelet mean volume (Bld) [Entitic vol] 8.1 fL Normal 6.4 - 10.8 fL [facility] HemeAutoSS Platelets (Bld) [#/Vol] 218.0 E9/L Normal 150.0 - 500.0 E9/L [facility]eAutoSS RBC (Bld) [#/Vol] 3.7 E12/L Low 4.3 - 5.9 E12/L [facility]eAuto[facility] WBC corrected for nucl RBC Auto (Bld) [#/Vol] 5.2 E9/L Normal 4.0 - 11.0 E9/L [facility] Hep Func Panelon 09-06-2023 Albumin [Mass/Vol] 3.5 g/dL Normal 3.3-5.0 [facility] Comment on above: Performed By: #### 1 7588271, 6069439, 9404680, 0684714 ####[facility] [address] [place] [address] Albumin/Globulin [Mass ratio] 1.0 {ratio} Low 1.1-2.2 [facility] Comment on above: Performed By: #### 1 3143430, 3423558, 6774850, 1081036 ####[facility] [address] [place] [address] Alk Phos 89 Int._Unit/L Normal 21-98 [facility] Comment on above: Performed By: #### 1 1700454, 4607045, 7365639, 7940391 ####[facility] [address] [place] [address] ALT 12 Int._Unit/L Normal 6-46 [facility] Comment on above: Performed By: #### 1 4822617, 5508589, 5048287, 1093097 ####[facility] [address] [place] [address] AST 12 Int._Unit/L Normal 5-43 [facility] Comment on above: Performed By: #### 1 3461739, 8515638, 0763922, 0446137 ####[facility] [address] [place] [address] Bili Direct 0.1 mg/dL Normal 0.1-0.4 [facility] Comment on above: Performed By: #### 1 3381444, 3105826, 2546859, 3134453 ####[facility] [address] [place] [address] Bili Indirect 0.3 mg/dL Normal 0.1-0.9 [facility] Comment on above: Performed By: #### 1 7942659, 7717269, 4641311, 8070135 ####[facility] [address] [place] [address] Bili Total 0.4 mg/dL Normal 0.0-1.1 [facility] Comment on above: Performed By: #### 1 6834308, 7744020, 2009082, 4406954 ####[facility] [address] [place] [address] Globulin (S) [Mass/Vol] 3.4 g/dL Normal 1.4-4.0 [facility] Comment on above: Performed By: #### 1 2025211, 8352853, 3712850, 4103393 ####[facility] [address] [place] [address] Protein [Mass/Vol] 6.9 g/dL Normal 6.0-7.8 [facility] Comment on above: Performed By: #### 1 8262031, 0176795, 5592247, 9859302 ####[facility] [address] [place] [address] Inpatient Clinical Summaryon 09-06-2023 Inpatient Clinical Summary [address] [address] Clinical Summary Person Information Name: ROLA AGUILAR Elena/[facility] Age: 28 Years : 1995 Sex: Female PCP: Kale RENDON MD Marital Status: Single Phone: [phone] Race: White Ethnicity: Non- or Language: Honduran Visit Id: Visit Reason: Speciality: Acuity: Obs Enc Type: OB Triage Med Service: Obstetrics Arrival: 09/06/2023 16:40:25 Discharge: 09/06/2023 23:18:00 Dispo Type: Home (Routine DC) Address: [address] [place] [address] [address] [place] [id number] Provider Notes: Diagnosis: Problems Active (09/06/2023) Smoker [...] Immunizations Documented This Visit Final Med List: acetaminophen-hydroco done (Menasha 325 mg-5 mg oral tablet) 1 Tablets By Mouth every 6 hours as needed for pain. Refills: 0. acetaminophen-hydroco done (Menasha 325 mg-5 mg oral tablet) 1 Tablets By Mouth every 6 hours as needed for pain. Refills: 0. acetaminophen-oxycodo ne (Percocet 325 mg-5 mg Tab) 1 Tablets By Mouth every 6 hours as needed as needed for pain. Refills: 0. acetaminophen-oxycodo ne (Percocet 5 mg-325 mg oral tablet) 1 Tablets By Mouth every 6 hours. Refills: 0. acetaminophen-oxycodo ne (Percocet 5 mg-325 mg oral tablet) 1 Tablets By Mouth every 6 hours. Refills: 0. acetaminophen-oxycodo ne (Percocet 5 mg-325 mg oral tablet) 1 [...] or vaginal bleeding Patient Education Information: Normal [facility] Inpatient Patient Summaryon 09-06-2023 Inpatient Patient Summary [place] [address] Patient Discharge Instructions PERSON INFORMATION Name: ROLA [...] to find a nearby participating provider. Comment: I ROLA AGUILAR, have received the attached patient education materials/instruction s and have verbalized understanding. Patient Signature Date Clinican/Nurse Signature Date MEDICATION LIST Medications to Continue with No Changes Other Medications acetaminophen-hydroco done (Menasha 325 mg-5 mg oral tablet) 1 Tablets By Mouth every 6 hours as needed for pain. Refills: 0. Last Dose: ____Next Dose: ____ acetaminophen-hydroco done (Menasha 325 mg-5 mg oral tablet) 1 Tablets By Mouth every 6 hours as needed for pain. Refills: 0. Last Dose: ____Next Dose: ____ acetaminophen-oxycodo ne (Percocet 325 mg-5 mg Tab) 1 Tablets By Mouth every 6 hours as needed as needed for pain. Refills: 0. Last Dose: ____Next Dose: ____ acetaminophen-oxycodo ne (Percocet 5 mg-325 mg oral tablet) 1 Tablets By Mouth every 6 hours. Refills: 0. Last Dose: ____Next Dose: ____ acetaminophen-oxycodo ne (Percocet 5 mg-325 mg oral tablet) 1 Tablets By Mouth every 6 hours. Refills: 0. Last Dose: ____Next Dose: ____ acetaminophen-oxycodo ne (Percocet 5 mg-325 mg oral tablet) 1 Tablets By Mouth every 6 hours. Refills: 0. Last Dose: ____Next Dose: ____ hydrOXYzine (Vistaril 25 mg Tab) 1-2 tab(s) By Mouth 4 times a day as needed as needed for anxiety. Refills: 0. Last Dose: ____Next Dose: ____ lurasidone (Latuda 20 mg oral tablet) 1 Tablets By Mouth every day. Refills: 0. Last Dose: ____Next Dose: ____ metoclopramide (metoclopramide 10 mg oral tablet, disintegrating) 1 Tablets By Mouth every 6 hours as needed Nausea/Vomiting. Refills: 0. Last Dose: ____Next Dose: ____ ondansetron (Zofran 4 mg Tab) 1 Tablets By Mouth every 8 hours as needed Nausea/Vomiting. Refills: 0. Last Dose: ____Next Dose: ____ ondansetron (Zofran ODT 4 mg Tab-Dis) 1 Tablets By Mouth every 8 hours. Refills: 0. Last Dose: ____Next Dose: ____ ondansetron (Zofran ODT 4 mg Tab-Dis) 1 Tablets By Mouth every 8 hours as needed Nausea/Vomiting. Refills: 0. Last Dose: ____Next Dose: ____ predniSONE (predniSONE 10 mg Tab) 4 tab(s) Oral Daily for 1 week, then 3 tablets oral daily for 1 week, then 2 tablets oral daily for 1 week then 1 tablet oral daily for 1 week. Refills: 0. Last Dose: ____Next Dose: ____ promethazine (Phenergan 25 mg Supp) 1 Suppositories By rectum every 6 hours as needed Nausea/Vomiting. Refills: 0. Last Dose: ____Next Dose: ____ promethazine (promethazine 25 mg Tab) 1 Tablets By Mouth every 6 hours as needed as needed for nausea/vomiting. Refills: 0. Last Dose: ____Next Dose: ____ sertraline (Zoloft 50 mg Tab) 50 By Mouth every day. Last Dose: ____Next Dose: ____ Pharmacy Information: [facility] PATIENT EDUCATION INFORMATION Instructions: Medication Leaflets: You may receive a survey fro (more content not included)... Normal [facility] Insurance Correspondenceon 1 11-07-2022 Insurance Correspondence [id number] .00TIFF [facility] - Chemistry and C hemistry - challengeOrdered By: SYSTEM SYSTEM on 09-06-2023 Anion gap [Moles/Vol] 11 mmol/L Normal 6 - 16 mEq/L R emisol Chem Chloride [Moles/Vol] 108 mmol/L Normal 101 [...] 09-06-2023 Lipase Lvl 84 unit/L High 13-58 [facility] Comment on above: Performed By: #### 1 7673385, 0441809, 3833757, 4327853 ####[facility] [address] [place] [place] [address] Lyteson 09-06-2023 Anion gap [Moles/Vol] 11 mmol/L Normal 6-16 [facility] Comment on above: Performed By: #### 2 330263, 13943056, 34389965, 3079913, 9118013, 3447579, 0640299, 3227188 ####[facility] [address] [place] [address] Chloride [Moles/Vol] 108 mmol/L Normal 101-[address] [facility] Comment on above: Performed By: #### 2 149677, 66203266, 14652925, 3318747, 6300612, 1142116, 2729403, 9275323 ####[facility] [address] [place] [address] CO2 [Moles/Vol] 21 mmol/L Normal 21-31 [facility] Comment on above: Performed By: #### 2 415675, 73992322, 81315430, 2089796, 5615392, 2162126, 6147065, 6918067 ####[facility] [address] [place] [address] Potassium [Moles/Vol] 3.7 mmol/L Normal 3.5-5.3 [facility] Comment on above: Performed By: #### 2 987152, 42100673, 16668946, 0491315, 7133341, 1733082, 0344196, 1574051 ####[facility] [address] [place] [address] Sodium [Moles/Vol] 136 mmol/L Normal 135-145 [facility] Comment on above: Performed By: #### 2 809015, 84526872, 30240416, 7627917, 3135115, 7749023, 1874043, 9800084 ####[facility] [address] [place] [address] Monitor Recordon 09-06-2023 Monitor Record [id number] .00TIFF Normal [facility] No Panel InformationOrdered By: SYSTEM SYSTEM on 09-06-2023 eGFR mL/min/1.73 m2 Normal >=59mL/min/1. 7 3 m2 Remisol Chem PT & PTTon 09-06-2023 aPTT Coag (PPP) [Time] 26.7 second(s) Normal 25.1-36.5 [facility] Comment on above: Result Comment: Para meter [...] the same coagulation reagent and instrumentation as [facility]. Currently there are no coagulation studies available worldwide for children to 14 days, and no normal ranges. Heparin therapeutic range (represented by Anti-Factor Xa activity of 0.2 - 0.4 U/mL) corresponds to PTT of 56.6 - 109.0 sec. Performed By: #### 2 009957, 00355199, 62822323, 0564916, 5817308, 9687657, 2656659, 4527382 ####[facility] [address] [place] [address] INR Coag (PPP) [Relative time] 1.0 {INR} Invalid Interpretation Code [facility] Comment on above: Result Comment: INR results are specifically intended to assess patients stabilized on long-term Anticoagulation therapy suggested INR?s ?Less Intensive Anticoagulation? 2.0 ? 3.0 Conventional Range 3.0 ? 4.5 Performed By: #### 2 517692, 21340192, 01969323, 5156360, 4227838, 6638823, 1822906, 4594852 ####[facility] [address] [place] [address] PT Coag (PPP) [Time] 10.7 second(s) Normal 9.4-12.5 [facility] Comment on above: Result Comment: 15 d [...] the same coagulation reagent and instrumentation as [facility]. Currently there are no coagulation studies available worldwide for children to 14 days, and no normal ranges. Performed By: #### 2 778567, 41260220, 58549425, 0991142, 7023374, 5676909, 0181825, 5329444 ####[facility] [address] [place] [address] RAD - Consent to Procedureon 09-06-2023 RAD - Consent to Procedure [id number]# 1.00TIFF Normal [facility] RAD - Preliminary Radiology Reporton 09-06-2023 RAD - Preliminary Radiology Report [id number]# 1.00TIFF Normal [facility] UA With Cult Reflexon 2022 Bacteria LM Ql (Urine sed) TRACE Normal Trace [facility] Comment on above: Performed By: #### 2 575364, 7358719, 1482970, 7982079, 0305346, 36791944 #### [facility] [address] [place] [address] Bilirubin Ql (U) Negative Normal Negative [facility] Comment on above: Performed By: #### 2 456313, 8651970, 0267990, 5102570, 6603794, 48200483 #### [facility] [address] [place] [address] Clarity (U) SL CLOUDY Invalid Interpretation Code [facility] Comment on above: Performed By: #### 2 577380, 2996005, 2335933, 8153310, 6543939, 05450202 #### [facility] [address] [place] [address] Color (U) YELLOW Normal Yellow [facility] Comment on above: Performed By: #### 2 344246, 1294758, 9426141, 4047269, 9534020, 63527140 #### [facility] [address] [place] [address] 23260 Epithelial cells.squamous LM.HPF (Urine sed) [#/Area] /[HPF] Normal 0-2 [facility] Comment on above: Performed By: #### 2 630996, 4031230, 5965763, 6683656, 2093384, 52863043 #### [facility] [address] [place] [address] Glucose Test strip (U) [Mass/Vol] Negative Normal Negative [facility] Comment on above: Performed By: #### 2 424086, 3250622, 9851560, 6630834, 1896095, 16445140 #### [facility] [address] [place] [address] Hemoglobin Ql (U) Negative Normal Negative [facility] Comment on above: Performed By: #### 2 519697, 5669547, 5511425, 0587191, 1125378, 72567146 #### [facility] [address] [place] [address] Ketones (U) [Mass/Vol] Negative Normal Negative Fi [facility] Comment on above: Performed By: #### 2 175006, 4053920, 4143554, 9623847, 7404475, 18626941 #### [facility] [address] [place] [address] [place].plasma/[place] .RBC (Bld) [Mass ratio] 0-3 Normal 0-3 [facility] Comment on above: Performed By: #### 2 569206, 7591280, 8688724, 9264676, 7382834, 22085121 #### [facility] [address] [place] [address] Mucus Ql (Urine sed) TRACE Normal Fish [facility] Comment on above: Performed By: #### 2 525315, 4043677, 4090379, 5739146, 4638685, 58572105 #### [facility] [address] [place] [address] Nitrite Ql (U) Negative Normal Negative [facility] Comment on above: Performed By: #### 2 920784, 2502821, 8437205, 9833050, 9687933, 42000597 #### [facility] [address] [place] [address] pH (U) 6.5 [pH] Invalid Interpretation Code 5.0-9.0 [facility] Comment on above: Performed By: #### 2 103616, 0036220, 1194443, 0463107, 8735985, 00607489 #### [facility] [address] [place] [address] Protein (U) [Mass/Vol] Negative Normal Negative [facility] Comment on above: Performed By: #### 2 257537, 5425466, 1044695, 6172250, 2807743, 79603794 #### [facility] [address] [place] [address] Specific gravity (U) [Rel density] <=1.005 Invalid Interpretation Code 1.005-1.030 [facility] Comment on above: Performed By: #### 2 720481, 8583203, 6532980, 6976831, 9354391, 49407509 #### [facility] [address] [place], [place] [address] Type of Urine collection method Clean Catch Normal [facility] Comment on above: Performed By: #### 2 916313, 7503171, 9382675, 6162739, 9215742, 78254548 #### [facility] [address] [place] [address] Urobilinogen Qn (U) 0.2 {Keyla'U}/dL Normal 0.0-1.0 [facility] Comment on above: Performed By: #### 2 382854, 9838241, 8441677, 2039157, 9792385, 58270537 #### [facility] [address] [place], [place] [address] WBC Auto Ql (U) 2+ Abnormal Negative [facility] Comment on above: Performed By: #### 2 439895, 9580349, 7857770, 4848071, 8367088, 82717438 #### [facility] [address] [place], [place] [address] WBC LM.HPF (Urine sed) [#/Area] 6-15 Abnormal 0-5 [facility] Comment on above: Performed By: #### 2 229435, 5950531, 0134432, 0311697, 2794144, 17091683 #### [facility] [address] [place], [place] [address] URINALYSISOrdered By: Espinoza Mason on 09-06-2023 Bacteria LM Ql (Urine sed) Trace /HPF Normal Trace/HPF [facility] UA Auto SS Bilirubin Ql (U) Negative (09/06/23 4:14 PM) Normal Negative [facility] UA Auto SS Clarity (U) SL CLOUDY Invalid Interpretation Code [facility] UA Auto SS Color (U) Yellow (09/06/23 4:14 PM) Normal Yellow [facility] UA Auto SS Epithelial cells.squamous LM.HPF (Urine sed) [#/Area] /[HPF] Normal 0-2/HPF [facility] UA Aut o SS Glucose Test strip (U) [Mass/Vol] Negative (09/06/23 4:14 PM) Normal Negative [facility] UA Auto SS Hemoglobin Ql (U) Negative (09/06/23 4:14 PM) Normal Negative [facility] UA Auto SS Ketones (U) [Mass/Vol] Negative (09/06/23 4:14 PM) Normal Negative [facility] UA Auto SS [place].plasma/[place] .RBC (Bld) [Mass ratio] 0-3 /HPF Normal 0-3/HPF [facility] UA Auto SS Mucus Ql (Urine sed) Trace (09/06/23 4:14 PM) Normal [facility] UA Auto SS Nitrite Ql (U) Negative (09/06/23 4:14 PM) Normal Negative [facility] UA Auto SS pH (U) 6.5 *NA* (09/06/23 4:14 PM) Invalid Interpretation Code 5.0 - 9.0 [facility] UA Auto SS Protein (U) [Mass/Vol] Negative (09/06/23 4:14 PM) Normal Negative [facility] UA Auto SS Specific gravity (U) [Rel density] <=1.005 *NA* (09/06/23 4:14 PM) Invalid Interpretation Code 1.005 - 1.030 [facility] UA Auto SS UA Spec Desc Clean Catch (09/06/23 4:14 PM) Normal [facility] UA Auto SS Urobilinogen Qn (U) 0.5191428 {Keyla'U}/dL Normal 0.0 - 1.0 EU/dL [facility] UA Auto SS WBC Auto Ql (U) 2+ *ABN* (09/06/23 4:14 PM) Invalid Interpretation Code Negative [facility] UA Auto SS WBC LM.HPF (Urine sed) [#/Area] 6-15 /HPF Invalid Interpretation Code 0-5/HPF [facility] UA Auto SS US Limitedon 09-06 US [...] survey was not performed. Ordering Provider: Heriberto Cervantes FINAL REPORT Dictated: 09/06/2023 5:52 pm Anshul Cardoza MD Signed (Electronic Signature): 09/06/2023 5:52 pm Signed by: Anshul Cardoza MD Transcribed by: CLARICE Technologist: MICHAEL Technical Comments SUSHMA 11/06/22 History 2 Technical Comments Para 1 Placenta Grade 0 Positioning Transverse Amniotic Fluid Volume Low Normal Normal [facility] Uric Acidon 09-06-2023 Urate [Mass/Vol] 4.9 mg/dL Normal 2.2-7.4 [facility] Comment on above: Performed By: #### 2 930330, 21410909, 39922704, 3256266, 1054332, 9528032, 8723273, 0690454 ####[facility] [address] [place] [address] eGFRon 09-06-2023 GFR/1.73 sq M.predicted among non-blacks MDRD (S/P/Bld) [Vol rate/Area] mL/min/{1.73_m2} Normal >=59 [facility] Comment on above: Order Comment: Order added by Discern Expert. Performed By: #### 1 7620148, 2837980, 1704806, 6830921 ####[facility] [address] [place] [address] GFR/1.73 sq M.predicted among non-blacks MDRD (S/P/Bld) [Vol rate/Area] mL/min/{1.73_m2} Normal >=59 [facility] Comment on above: Order Comment: Order added by Discern Expert. Performed By: #### 2 392338, 58921676, 25944389, 2196011, 8647066, 9709433, 7553490, 8009210 ####[facility] [address] [place] [address] URINE OB DIP B/Oon 3 Glucose Ql (U) Negative Neg mg/dL [facility] Protein.monoclonal (U) [Mass/Vol] Negative Neg mg/dL [facility] URINE OB DIP B/Oon 3 Glucose Ql (U) Negative Neg mg/dL [facility] Protein.monoclonal (U) [Mass/Vol] Negative Neg mg/dL [facility] OBSTETRIC ULTRASOUND WHIon 1 [facility] C. trachomatis+N. gonorrhoea e DNA CORONA+probe Ql (Unsp spec)on 07-05-2023 C. trachomatis rRNA CORONA+probe Ql (Unsp spec) Negative Negative for Chlamydia trachomatis by amplificaton [facility] N. gonorrhoeae rRNA CORONA+probe Ql (Unsp spec) Negative Negative for Neisseria gonorrhoeae by amplification [facility] CBC panel Auto (Bld)on 07-05 Erythrocyte distribution width (RBC) [Ratio] 17.1 % High 11.5 - 15.0 % [facility] Hematocrit (Bld) [Volume fraction] 32.3 % Low 36.0 - 46.0 % [facility] Hemoglobin (Bld) [Mass/Vol] 10.5 g/dL Low 11.5 - 15.5 g/dL [facility] MCH (RBC) [Entitic mass] 27.9 pg 26.0 - 34.0 pg [facility] MCHC (RBC) [Mass/Vol] 32.5 g/dL 30.5 - 36.0 g/dL [facility] MCV (RBC) [Entitic vol] 85.9 fL 80.0 - 100.0 fL [facility] Nucleated RBC (Bld) [#/Vol] <0.01 k/uL [facility] Platelet mean volume (Bld) [Entitic vol] 9.8 fL 9.0 - 12.7 fL [facility] Platelets (Bld) [#/Vol] 231 10*3/uL 150 - 400 k/uL [facility] RBC (Bld) [#/Vol] 3.76 10*6/uL Low 3.90 - 5.2 0 m/uL [facility] WBC (Bld) [#/Vol] 5.04 10*3/uL 3.70 - 11. 00 k/uL [facility] URINE OB DIP B/Oon Glucose Ql (U) Negative Neg mg/dL [facility] Protein.monoclonal (U) [Mass/Vol] Negative Neg mg/dL [facility] C Urineon 05-27-2023 Bacteria identified Cx Nom [...] Locations R1: This test was performed at: [facility], [address] [place] [address], [facility] , , Normal [facility] Comment on above: Performed By: #### 2 564095, 70546925 ####[facility] [address] [place] [address] ED Note-Physicianon 05-26-20 ED Note-Physician Basic Information Time Seen: Jess Gunn PA-C 05/25/2023 19:43 Chief Complaint pt reports chronic [...] of setting up to see a 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 She states she has had an ultrasound [...] concentrating, paranoia, anhedonia, lack of energy, socorro Hematologic/lymphatic : Denies any purpura, petechiae, excessive bleeding, bruising [...] 6.0, hemogl (more content not included)... Normal [facility] Comment on above: Result Comment: Elec tronically Signed By: Luis A LEDESMA, Jess Amaya\.br\Date and Time Signed: 05/26/23 01:27 EDT\.br\Electronically Co-Signed By: Alex Sanchez DO\.br\Date and Time Co-Signed: 05/26/23 02:19 EDT Auto Diffon 05-25-2023 Basophils/100 WBC (Bld) 0.5 % Normal 0.0-2.0 [facility] Comment on above: Order Comment: Order Added by Discern Expert. Performed By: #### 2 504971, 7330496, 1959741, 2860623, 2896486, 17433844 #### [facility] [address] [place] [address] Basophils/Leukocytes Auto (Bld) [Pure # fraction] 0.0 E9/L Normal 0.0-0.2 [facility] Comment on above: Order Comment: Order Added by Discern Expert. Performed By: #### 2 339242, 5431564, 4447287, 4002999, 9141222, 35801772 #### [facility] [address] [place] [address] Eosinophils/100 WBC (Bld) 2.0 % Normal 0.0-8.0 [facility] Comment on above: Order Comment: Order Added by Discern Expert. Performed By: #### 2 027955, 1606918, 9946796, 7333904, 1922158, 14358783 #### [facility] [address] [place] [address] Eosinophils/Leukocytes Auto (Bld) [Pure # fraction] 0.1 E9/L Normal 0.0-0.5 [facility] Comment on above: Order Comment: Order Added by Discern Expert. Performed By: #### 2 813228, 5245920, 2996338, 2269672, 5416014, 87908701 #### [facility] [address] [place] [address]65[address] Lymphocytes/100 WBC (Bld) 22.6 % Normal 14.0-50.0 [facility] Comment on above: Order Comment: Order Added by Discern Expert. Performed By: #### 2 414365, 2619305, 1148900, 6109174, 2618868, 32266781 #### [facility] [address] [place] [address] Lymphocytes/Leukocytes Auto (Bld) [Pure # fraction] 1.4 E9/L Normal 1.0-4.0 [facility] Comment on above: Order Comment: Order Added by Discern Expert. Performed By: #### 2 148385, 3714673, 5129769, 3917090, 0010253, 16248507 #### [facility] [address] [place] [address]70[address] Monocytes/100 WBC (Bld) 8.7 % Normal 4.0-14.0 [facility] Comment on above: Order Comment: Order Added by Discern Expert. Performed By: #### 2 665425, 0667777, 8972845, 7375810, 7489531, 79801836 #### [facility] [address] [place] [address] 106[address] Monocytes/Leukocytes Auto (Bld) [Pure # fraction] 0.5 E9/L Normal 0.2-1.0 [facility] Comment on above: Order Comment: Order Added by Discern Expert. Performed By: #### 2 081432, 6381595, 9382981, 9440189, 3746685, 18470708 #### [facility] [address] [place] [address]65[address] Neutrophils/100 WBC (Bld) 66.2 % Normal 36.0-75.0 [facility] Comment on above: Order Comment: Order Added by Discern Expert. Performed By: #### 2 917039, 7062744, 5323888, 0699602, 8494285, 55721217 #### [facility] [address] [place] [address] Neutrophils/Leukocytes Auto (Bld) [Pure # fraction] 4.0 E9/L Normal 2.0-7.5 [facility] Comment on above: Order Comment: Order Added by Discern Expert. Performed By: #### 2 388795, 7785678, 7676113, 5710355, 6492493, 77816898 #### [facility] [address] [place] [address] BMPon 05-25-2023 Creatinine [Mass/Vol] 0.5 mg/dL Normal 0.5-1.3 [facility] Comment on above: Performed By: #### 2 301116, 1514840, 8687639, 6892549, 8730308, 63770615 #### [facility] [address] [place] [address] Urea nitrogen [Mass/Vol] 9 mg/dL Normal 5-21 [facility] Comment on above: Performed By: #### 2 122255, 8842407, 4485269, 6836008, 9846682, 52855607 #### [facility] [address] [place] [address] Urea nitrogen/Creatinine [Mass ratio] 18 No Units Normal 10-20 [facility] Comment on above: Performed By: #### 2 932647, 1502744, 0002226, 0183861, 4273916, 84823337 #### [facility] [address] [place] [address] Anion gap [Moles/Vol] 8 mmol/L Normal 6-16 [facility] Comment on above: Performed By: #### 2 827813, 8791405, 2404428, 4270471, 4490201, 49346137 #### [facility] [address] [place] [address] Calcium [Mass/Vol] 8.4 mg/dL Low 8.9-11.1 [facility] Comment on above: Performed By: #### 2 843687, 9623897, 3781704, 0430734, 6037365, 37939048 #### [facility] [address] [place] [address] Chloride [Moles/Vol] 109 mmol/L Normal 101-[address] [facility] Comment on above: Performed By: #### 2 944835, 7668793, 8317842, 9122805, 1171805, 99468412 #### [facility] [address] [place] [address] CO2 [Moles/Vol] 21 mmol/L Normal 21-31 [facility] Comment on above: Performed By: #### 2 762847, 1249613, 0840879, 4314111, 6563148, 37570767 #### [facility] [address] [place] [address] Glucose [Mass/Vol] 81 mg/dL Normal 55-199 [facility] Comment on above: Result Comment: If t his glucose result represents a fasting glucose, interpretation should refer to the following reference range: 55-99 mg/dL Performed By: #### 2 366373, 6112470, 3267399, 7867923, 9481547, 91779394 #### [facility] [address] [place] [address] Potassium [Moles/Vol] 3.4 mmol/L Low 3.5-5.3 [facility] Comment on above: Performed By: #### 2 691354, 9286028, 4064145, 4935882, 1347089, 67531781 #### [facility] [address] [place] [address] Sodium [Moles/Vol] 135 mmol/L Normal 135-145 [facility] Comment on above: Performed By: #### 2 282622, 7975796, 4245768, 0093065, 3948215, 95151146 #### [facility] [address] [place] [address] CBC w/ Auto Diffon 3 Erythrocyte distribution width (RBC) [Ratio] 17.3 % High 10.9-14.2 [facility] Comment on above: Performed By: #### 2 685159, 7065302, 8215791, 1850294, 9526043, 31710999 #### [facility] [address] [place] [address] Hematocrit (Bld) [Volume fraction] 35.6 % Normal 34.0-46.0 [facility] Comment on above: Performed By: #### 2 666857, 9600884, 8822183, 7030919, 6694593, 90706945 #### [facility] [address] [place] [address] Hemoglobin (Bld) [Mass/Vol] 12.0 g/dL Normal 12.0-16.0 [facility] Comment on above: Performed By: #### 2 046780, 7446856, 5744621, 6520215, 4561838, 42736703 #### [facility] [address] [place] [address] MCH (RBC) [Entitic mass] 26.7 pg Low 27.0-34.0 [facility] Comment on above: Performed By: #### 2 864519, 4840460, 5911234, 8884328, 0783564, 56206336 #### [facility] [address] [place] [address] 811[address] MCHC (RBC) [Mass/Vol] 33.6 g/dL Normal 31.4-36.0 [facility] Comment on above: Performed By: #### 2 923537, 9356378, 2005120, 0700532, 6671326, 46527188 #### [facility] [address] [place] [address] 41327 MCV (RBC) [Entitic vol] 79.5 fL Low 80.0-100.0 [facility] Comment on above: Performed By: #### 2 667266, 6824012, 1375903, 2619690, 0261650, 57124120 #### [facility] [address] [place] [address] 8[address] Platelet mean volume (Bld) [Entitic vol] 8.7 fL Normal 6.4-10.8 [facility] Comment on above: Performed By: #### 2 283078, 6770991, 5016259, 7617166, 4272153, 81738966 #### [facility] [address] [place] [address] 49469 Platelets (Bld) [#/Vol] 233.0 E9/L Normal 150.0-500.0 [facility] Comment on above: Performed By: #### 2 793394, 1372898, 5725918, 1769515, 0355161, 77529349 #### [facility] [address] [place] [address] RBC (Bld) [#/Vol] 4.5 E12/L Normal 4.3-5.9 [facility] Comment on above: Performed By: #### 2 726806, 0475507, 4127925, 0883193, 2150056, 65094032 #### [facility] [address] [place] [address] WBC corrected for nucl RBC Auto (Bld) [#/Vol] 6.0 E9/L Normal 4.0-11.0 [facility] Comment on above: Performed By: #### 2 245500, 4833547, 5879551, 2934147, 4680360, 31760456 #### [facility] [address] [place] [address] CHEMISTRYOrdered By: SYSTEM SYSTEM on 05-25-2023 Albumin [...] 8 mmol/L Normal 6 - 16 mEq/L [facility] AST [Catalytic activity/Vol] 14 [iU]/d Normal 5 - 43 Int._Unit/L [facility] Bilirubin [Mass/Vol] 0.5 mg/dL Normal 0.0 - 1 .1 mg/dL [facility] Bilirubin.direct [Mass/Vol] mg/dL Normal 0.1 - 0.4 mg/dL [facility] Bilirubin.indirect [Mass or moles/Vol] Unable to Calculate mg/dL Invalid Interpretation Code 0.1 - 0.9 mg/dL [facility] Calcium [Mass/Vol] 8.4 mg/dL Low 8.9 - 11. 1 mg/dL [facility] Chloride [Moles/Vol] 109 mmol/L Normal 101 - 1 11 mmol/L [facility] CO2 [Moles/Vol] 21 mmol/L Normal 21 - 31 mmol/L [facility] Creatinine [Mass/Vol] 0.5 mg/dL Normal 0.5 - 1.3 mg/dL [facility] GFR/1.73 sq M.predicted among non-blacks MDRD (S/P/Bld) [Vol rate/Area] 132 mL/min/1.73 m2 Normal >=59mL/min/1.7 3 m2 [facility] Chem S Globulin (S) [Mass/Vol] 3.8 g/dL Normal 1.4 - 4.0 gm/dL [facility] Glucose [Mass/Vol] 81 mg/dL Normal 55 - 199 mg/dL [facility] Lipase [Catalytic activity/Vol] 58 U/L Normal 13 - 58 unit/L [facility] Magnesium [Mass/Vol] 1.6 mg/dL Normal 1.3 - 2 .4 mg/dL [facility] Potassium [Moles/Vol] 3.4 mmol/L Low 3.5 - 5.3 mmol/L [facility] Protein [Mass/Vol] 6.9 g/dL Normal 6.0 - 7.8 gm/dL [facility] Sodium [Moles/Vol] 135 mmol/L Normal 135 - 145 mmol/L [facility] Urea nitrogen [Mass/Vol] 9 mg/dL Normal 5 - 21 mg/dL [facility] Urea nitrogen/Creatinine [Mass ratio] 18 mg/mg Normal 10 - 20 [facility] Consent for Treatmenton Consent for Treatment [id number] .00CD:127 Normal [facility] Discharge Instructionson Discharge Instructions [id number]# 1.00CD:127 Normal [facility] ED Clinical Summaryon 2022 ED Clinical Summary [address] [address] ED Clinical Summary Person Information Name: ROLA AGUILAR Elena/[facility] Age: 27 Years : 1995 Sex: Female Language: Honduran PCP: Kale RENDON MD Marital Status: Single Phone: [phone] Visit Id: Visit Reason: Diarrhea; Vomiting; Abdominal [...] 05/25/2023 23:07:00 05/25/2023 23:07:00 05/25/2023 23:07:00 ADDRESS: [address] [place] [address] [address] [place] [id number] [facility] DOC NOTES: MEDICAL INFORMATION: Prescriptions Given: Medications to Continue with No Changes Other Medications acetaminophen-hydroco done (Menasha 325 mg-5 mg oral tablet) 1 Tablets By Mouth every 6 hours as needed for pain. Refills: 0. acetaminophen-hydroco done (Menasha 325 mg-5 mg oral tablet) 1 Tablets By Mouth every 6 hours as needed for pain. Refills: 0. acetaminophen-oxycodo ne (Percocet 325 mg-5 mg Tab) 1 Tablets By Mouth every 6 hours as needed as needed for pain. Refills: 0. acetaminophen-oxycodo ne (Percocet 5 mg-325 mg oral tablet) 1 Tablets By Mouth every 6 hours. Refills: 0. acetaminophen-oxycodo ne (Percocet 5 mg-325 mg oral tablet) 1 Tablets By Mouth every 6 hours. Refills: 0. acetaminophen-oxycodo ne (Percocet 5 mg-325 mg oral tablet) 1 [...] Disease Follow up: With: Address: When: Ja Pérez [facility] [address], [address], [employer] [address] [phone] Business (1) In 3 days 05/28/2023 With: Address: When: Kale RENDON [address] [place] [address], [place] [phone] Business (1) In 3 days DIAGNOSIS: 1:Abdominal pain in female; 2:Crohn's disease; 3:Intraute (more content not included)... Normal [facility] ED Patient Education Noteon 05-25-2023 ED Patient [...] specializes in diseases of the digestive tract (diet tech). How is this treated? There is no [...] these instructions at home: Medicines ? Take pfxz-qoz-ptucrbw and prescription medicines only as told by [...] contain jonny (more content not included)... Normal [facility] ED Patient Summaryon 023 ED Patient Summary [place] [id number] Patient Discharge Instructions Person Information Name: ROLA AGUILAR Age: 27 Years Arrival Date: 05/25/2023 18:50:32 Discharge Diagnosis: 1:Abdominal pain in female; 2:Crohn's disease; 3:Intrauterine Primary Care Physician: Kale RENDON MD Provider Information Primary Provider: Alex Sanchez DO Advanced Implementation Lead:None The exam and treatment you received in the Emergency Department were for an urgent problem and are not intended as complete care. It is important that you follow up with a doctor, nurse practitioner, or physician?s back office medical assistant for ongoing care. If your symptoms become worse or you do not improve as expected and you are unable to reach your usual health care provider, you should return to the Emergency Department. We are available 24 hours a day. ROLA AGUILAR has been given the following list of patient education materials, prescriptions and follow-up instructions: Follow-up Instructions: With: Address: When: Ja Pérez [address] [place] [address], [address], [address] [address] [phone] Business (1) In 3 days 05/28/2023 With: Address: When: Kale RENDON [address] [place], [place] [phone] Business (1) In 3 days In the event that this physician does not participate in your insurance network, please consult with your insurance company to find a nearby participating provider. Patient Education Materials: Crohn's Disease A MESSAGE TO ALL PATIENTS REGARDING OPIOIDS PRESCRIPTION OPIOIDS: WHAT YOU NEED TO KNOW Prescription opioids can be used to help relieve rngooavu-qk-lnfsth pain and are often prescribed following a [...] guidance from the Food and Drug Administration (www.fda.gov/Drugs/Re sourcesForYou). ? Visit www.cdc.gov/drugoverd ose to learn about the risks of opioids abuse and ov (more content not included)... Normal [facility] HEMATOLOGYOrdered By: SYSTEM SYSTEM on 05-25-2023 Basophils/100 WBC (Bld) 0.5 % Normal 0.0 - 2.0 % [facility] HemeAutoSS Basophils/Leukocytes Auto (Bld) [Pure # fraction] 0.0 E9/L Normal 0.0 - 0.2 E9/L [facility] HemeAutoSS Eosinophils/100 WBC (Bld) 2.0 % Normal 0.0 - 8.0 % [facility] HemeAutoSS Eosinophils/Leukocytes Auto (Bld) [Pure # fraction] 0.1 E9/L Normal 0.0 - 0.5 E9/L [facility] HemeAutoSS Lymphocytes/100 WBC (Bld) 22.6 % Normal 14.0 - 50.0 % [facility] HemeAutoSS Lymphocytes/Leukocytes Auto (Bld) [Pure # fraction] 1.4 E9/L Normal 1.0 - 4.0 E9/L [facility] HemeAutoSS Monocytes/100 WBC (Bld) 8.7 % Normal 4.0 - 14.0 % [facility] HemeAutoSS Monocytes/Leukocytes Auto (Bld) [Pure # fraction] 0.5 E9/L Normal 0.2 - 1.0 E9/L [facility] HemeAutoSS Neutrophils/100 WBC (Bld) 66.2 % Normal 36.0 - 75.0 % [facility] HemeAutoSS Neutrophils/Leukocytes Auto (Bld) [Pure # fraction] 4.0 E9/L [...] 6.0 E9/L Normal 4.0 - 11.0 E9/L [facility] HemeAutoSS Hep Func Panelon 05-25-2023 Bilirubin.indirect [Mass or moles/Vol] UTC Abnormal 0.1-0.9 [facility] Comment on above: Result Comment: Resu lt verified by Discern Rule. Performed result UTC (Unable to Calculate) was sent as an Alpha code due the inability to calculate a valid numeric value. Performed By: #### 2 045306, 5694116, 4335452, 5307726, 9723920, 10167754 #### [facility] [address] [place] [address] Albumin [Mass/Vol] 3.1 g/dL Low 3.3-5.0 [facility] Comment on above: Performed By: #### 2 335679, 4885108, 0762784, 8231486, 9968070, 87909765 #### [facility] [address] [place] [address] Albumin/Globulin (S) [Mass conc ratio] 0.8 Low 1.1-2.2 [facility] Comment on above: Performed By: #### 2 792174, 4386005, 0274741, 0922001, 5681049, 99213770 #### [facility] [address] [place] [address] ALP [Catalytic activity/Vol] 52 Int._Unit/L Normal 21-98 [facility] Comment on above: Performed By: #### 2 494759, 5974911, 2319466, 1547076, 4003765, 33186235 #### [facility] [address] [place] [address] ALT No additional P-5'-P [Catalytic activity/Vol] 22 Int._Unit/L Normal 6-46 [facility] Comment on above: Performed By: #### 2 369426, 1283579, 5262439, 8386329, 0024663, 07422400 #### [facility] [address] [place] [address] AST [Catalytic activity/Vol] 14 Int._Unit/L Normal 5-43 [facility] Comment on above: Performed By: #### 2 536810, 0306140, 7255214, 4354922, 7927377, 38613314 #### [facility] [address] [place] [address] Bilirubin [Mass/Vol] 0.5 mg/dL Normal 0.0-1.[address] [facility] Comment on above: Performed By: #### 2 442354, 9392338, 3274745, 3582664, 7589696, 89773040 #### [facility] [address] [place] [address] Globulin (S) [Mass/Vol] 3.8 g/dL Normal 1.4-4.0 [facility] Comment on above: Performed By: #### 2 548182, 2299080, 2384491, 1640935, 7600475, 15003304 #### [facility] [address] [place] [address] Protein [Mass/Vol] 6.9 g/dL Normal 6.0-7.8 [facility] Comment on above: Performed By: #### 2 083971, 1515427, 6932997, 0736051, 9309439, 60054730 #### [facility] [address] [place] [address] Bilirubin.direct [Mass/Vol] mg/dL Normal 0.1-0.4 [facility] Comment on above: Performed By: #### 2 489309, 1026776, 5534094, 5911953, 9912286, 22186928 #### [facility] [address] [place] [address] Lipase Levelon 05-25-2023 Lipase [Catalytic activity/Vol] 58 U/L Normal 13-58 [facility] Comment on above: Performed By: #### 2 755358, 2877965, 4031417, 8844489, 1660850, 93183973 #### [facility] [address] [place] [address] Magnesiumon 05-25-2023 Magnesium [Mass/Vol] 1.6 mg/dL Normal 1.3-2.[address] [facility] Comment on above: Performed By: #### 2 055441, 6355465, 1798191, 9283764, 1540446, 33499487 #### [facility] [address] [place] [address] UA With Cult Reflexon 2022 Bacteria LM Ql (Urine sed) 1+ /HPF Abnormal Trace [facility] Comment on above: Performed By: #### 2 937551, 22480764 ####[facility] [address] [place] [address] Bilirubin Ql (U) Negative Normal Negative [facility] Comment on above: Performed By: #### 2 211896, 40471276 ####[facility] [address] [place] [address] Clarity (U) SL CLOUDY Abnormal Clear [facility] Comment on above: Performed By: #### 2 889711, 94449970 ####[facility] [address] [place] [address] Color (U) YELLOW Normal Yellow [facility] Comment on above: Performed By: #### 2 812116, 24306683 ####[facility] [address] [place] [address] Epithelial cells.squamous LM.HPF (Urine sed) [#/Area] 3-4 Normal 0-2 [facility] Comment on above: Performed By: #### 2 538553, 81712899 ####[facility] [address] [place] [address] Glucose Test strip (U) [Mass/Vol] Negative Normal Negative [facility] Comment on above: Performed By: #### 2 949033, 78841745 ####[facility] [address] [place] [address] Hemoglobin Ql (U) Negative Normal Negative [facility] Comment on above: Performed By: #### 2 457433, 71029365 ####[facility] [address] [place] [address] Ketones (U) [Mass/Vol] Negative Normal Negative [facility] Comment on above: Performed By: #### 2 303771, 09400172 ####[address] [address] [place].plasma/[place] .RBC (Bld) [Mass ratio] 0-3 Normal 0-3 [facility] Comment on above: Performed By: #### 2 971612, 37123866 ####[address] [address] Mucus Ql (Urine sed) 1+ Normal Fish [facility] Comment on above: Performed By: #### 2 829093, 52026752 ####[address] [address] Nitrite Ql (U) Negative Normal Negative [facility] Comment on above: Performed By: #### 2 666413, 01500937 ####[address] [address] pH (U) 6.0 [pH] Invalid Interpretation Code 5.0-9.0 [facility] Comment on above: Performed By: #### 2 131208, 46336389 ####[address] [address] Protein (U) [Mass/Vol] TRACE Abnormal Negative [facility] Comment on above: Performed By: #### 2 041263, 13271523 ####[address] [address] Specific gravity (U) [Rel density] 1.025 Invalid Interpretation Code 1.005-1.030 [facility] Comment on above: Performed By: #### 2 100572, 64798626 ####[address] [address] Type of Urine collection method Clean Catch Normal [facility] Comment on above: Performed By: #### 2 580496, 01553688 ####[address] [address] Urobilinogen Qn (U) 0.2 {Keyla'U}/dL Normal 0.0-1.0 [facility] Comment on above: Performed By: #### 2 468787, 63799468 ####[facility] [address] [place] [address] WBC Auto Ql (U) 1+ Abnormal Negative [facility] Comment on above: Performed By: #### 2 270300, 69600613 ####[facility] [address] [place] [address] WBC LM.HPF (Urine sed) [#/Area] 6-15 Abnormal 0-5 [facility] Comment on above: Performed By: #### 2 002372, 32892146 ####[facility] [address] [place] [address] URINALYSISOrdered By: Espinoza Mason on 05-25-2023 Bacteria [...] [#/Area] 3-4 /HPF Normal 0-2/HPF [facility] UA Aut o SS Glucose Test strip (U) [Mass/Vol] Negative (05/25/23 7:52 PM) Normal Negative [facility] UA Auto SS Hemoglobin Ql (U) Negative (05/25/23 7:52 PM) Normal Negative [facility] UA Auto SS Ketones (U) [Mass/Vol] Negative (05/25/23 7:52 PM) Normal Negative [facility] UA Auto SS [place].plasma/[place] .RBC (Bld) [Mass ratio] 0-3 /HPF Normal 0-3/HPF [facility] UA Auto SS Mucus Ql (Urine sed) 1+ (05/25/23 7:52 PM) Normal [facility] UA Auto SS Nitrite Ql (U) Negative (05/25/23 7:52 PM) Normal Negative [facility] UA Auto SS pH (U) 6.0 *NA* (05/25/23 7:52 PM) Invalid Interpretation Code 5.0 - 9.0 [facility] UA Auto SS Protein (U) [Mass/Vol] Trace *ABN* (05/25/23 7:52 PM) Invalid Interpretation Code Negative [facility] UA Auto SS Specific gravity (U) [Rel density] 1.025 *NA* (05/25/23 7:52 PM) Invalid Interpretation Code 1.005 - 1.030 [facility] UA Auto SS UA Spec Desc Clean Catch (05/25/23 7:52 PM) Normal [facility] UA Auto SS Urobilinogen Qn (U) 0.4470284 {Keyla'U}/dL Normal 0.0 - 1.0 EU/dL [facility] UA Auto SS WBC Auto Ql (U) 1+ *ABN* (05/25/23 7:52 PM) Invalid Interpretation Code Negative [facility] UA Auto SS WBC LM.HPF (Urine sed) [#/Area] 6-15 /HPF Invalid Interpretation Code 0-5/HPF [facility] UA Auto SS eGFRon 05-25-2023 GFR/1.73 sq M.predicted among non-blacks MDRD (S/P/Bld) [Vol rate/Area] 132 mL/min/1.73 m2 Normal >=59 [facility] Comment on above: Order Comment: Order added by Discern Expert. Result Comment: Ordering Machine Operator sammie kidney disease could be indicated at eGFR's of less than 60 mL/min/1.73m2. Kidney failure is indicated at less than 15 mL/min/1.73m2. Performed By: #### 2 659254, 4040843, 4961197, 3949612, 9567028, 08880356 #### [facility] [address] [place] [address] C diff Tox gens Stl Ql CORONA+p robeon 04-30-2023 C. difficile toxin genes CORONA+probe Ql (Stl) Negative Normal Negative for C. difficile toxin by PCR [facility] Comment on above: Order Comment: Speci men Type: STOOL SPECIMENOrdering Facility: [facility] Address: [address] Performed By: #### 5 4067-4 ####[facility] LABCLIA [id number] [facility] [place] [address] [place] CBC W Auto Differential pane l (Bld)on 04-30-2023 Basophils (Bld) [#/Vol] 10*3/uL Normal <0.11 [facility] Comment on above: Order Comment: Speci men Type: BLOOD SPECIMENOrdering Facility: [facility] Address: [address] [address] Performed By: #### 5 7021-8 ####[facility] LABORATORYIA [id number] [place] [address] [place] Basophils/100 WBC (Bld) 0.3 % Normal [facility] Comment on above: Order Comment: Speci men Type: BLOOD SPECIMENOrdering Facility: [facility] Address: [address] [address] Performed By: #### 5 7021-8 ####[facility] [id number] [place] [address] [place] Differential cell count method Nom (Bld) Auto Normal [facility] ital Comment on above: Order Comment: Speci men Type: BLOOD SPECIMENOrdering Facility: [facility] Address: [address] [address] Performed By: #### 5 7021-8 ####[facility] [id number] [place] [address] [place] Eosinophils (Bld) [#/Vol] 0.05 10*3/uL Normal <0.46 [facility] Comment on above: Order Comment: Speci men Type: BLOOD SPECIMENOrdering Facility: [facility] Address: [address] [address] Performed By: #### 5 7021-8 ####[facility] LABORATORYCLIA [id number] [facility] [address] [place] Eosinophils/100 WBC (Bld) 0.8 % Normal [facility] Comment on above: Order Comment: Speci men Type: BLOOD SPECIMENOrdering Facility: [facility] Address: [address] [address] Performed By: #### 5 7021-8 ####[facility] LABORATORYIA [id number] [place] [address] [place] Erythrocyte distribution width (RBC) [Ratio] 14.0 % Normal 11.5-15.0 [facility] Comment on above: Order Comment: Speci men Type: BLOOD SPECIMENOrdering Facility: [facility] Address: [address] [address] Performed By: #### 5 7021-8 ####[facility] [id number] [place] [address] [place] Hematocrit (Bld) [Volume fraction] 35.6 % Low 36.0-46.0 [facility] Comment on above: Order Comment: Speci men Type: BLOOD SPECIMENOrdering Facility: [facility] Address: [address] [address] Performed By: #### 5 7021-8 ####[facility] [id number] [place] [address] [place] Hemoglobin (Bld) [Mass/Vol] 11.2 g/dL Low 11.5-15.5 [facility] Comment on above: Order Comment: Speci men Type: BLOOD SPECIMENOrdering Facility: [facility] Address: [address] [address] Performed By: #### 5 7021-8 ####[facility] LABORATORYIA [id number] [place] [address] [place] Immature granulocytes (Bld) [#/Vol] 10*3/uL Normal <0.10 [facility] Comment on above: Order Comment: Speci men Type: BLOOD SPECIMENOrdering Facility: [facility] Address: [address] [address] Performed By: #### 5 7021-8 ####[facility]ATORYSPR[facility] [id number] [address] [place] Immature granulocytes/100 WBC (Bld) 0.3 % Normal [facility] Comment on above: Order Comment: Speci men Type: BLOOD SPECIMENOrdering Facility: [facility] Address: [address] [address] Performed By: #### 5 7021-8 ####[facility] LABORATORYIA [id number] [place] [address] [place] Lymphocytes (Bld) [#/Vol] 1.35 10*3/uL Normal 1.00-4.00 [facility] Comment on above: Order Comment: Speci men Type: BLOOD SPECIMENOrdering Facility: [facility] Address: [address] [place] [address] Performed By: #### 5 7021-8 ####[facility] [id number] [address] [place] Lymphocytes/100 WBC (Bld) 22.5 % Normal [facility] Comment on above: Order Comment: Speci men Type: BLOOD SPECIMENOrdering Facility: [facility] Address: [address] [place] [address] Performed By: #### 5 7021-8 ####[facility] [id number] [place] [address] [place] MCH (RBC) [Entitic mass] 25.3 pg Low 26.0-34.0 [facility] Comment on above: Order Comment: Speci men Type: BLOOD SPECIMENOrdering Facility: [facility] Address: [address] [address] Performed By: #### 5 7021-8 ####[facility] [id number] [place] [address] [place] MCHC (RBC) [Mass/Vol] 31.5 g/dL Normal 30.5-36.0 [facility] Comment on above: Order Comment: Speci men Type: BLOOD SPECIMENOrdering Facility: [facility] Address: [address] Performed By: #### 5 7021-8 ####[facility] LABORATORYIA [id number] [place] [address] [place] MCV (RBC) [Entitic vol] 80.4 fL Normal 80.0-100.0 [facility] Comment on above: Order Comment: Speci men Type: BLOOD SPECIMENOrdering Facility: [facility] Address: [address] [address] Performed By: #### 5 7021-8 ####[facility] LABORATORYIA [id number] [place] [address] [place] Monocytes (Bld) [#/Vol] 0.35 10*3/uL Normal <0.87 [facility] Comment on above: Order Comment: Speci men Type: BLOOD SPECIMENOrdering Facility: [facility] Address: [address] [address] Performed By: #### 5 7021-8 ####[facility] [id number] [place] [address] [place] Monocytes/100 WBC (Bld) 5.8 % Normal [facility] Comment on above: Order Comment: Speci men Type: BLOOD SPECIMENOrdering Facility: [facility] Address: [address] [address] Performed By: #### 5 7021-8 ####[facility]IA [id number] [place] [address] [place] Neutrophils (Bld) [#/Vol] 4.22 10*3/uL Normal 1.45-7.50 [facility] Comment on above: Order Comment: Speci men Type: BLOOD SPECIMENOrdering Facility: [facility] Address: [address] Performed By: #### 5 7021-8 ####[facility] LABORATORYIA [id number] [place] [address] [place] Neutrophils/100 WBC (Bld) 70.3 % Normal [facility] Comment on above: Order Comment: Speci men Type: BLOOD SPECIMENOrdering Facility: [facility] Address: [address] [address] Performed By: #### 5 7021-8 ####[facility] LABORATORYIA [id number] [place] [address] [place] Nucleated RBC (Bld) [#/Vol] 10*3/uL Normal <0.01 [facility] Comment on above: Order Comment: Speci men Type: BLOOD SPECIMENOrdering Facility: [facility] Address: [address] [address] Performed By: #### 5 7021-8 ####[facility]IA [id number] [place] [address] [place] Nucleated RBC/100 WBC (Bld) [Ratio] 0.0 /100 WBC Normal [facility] Comment on above: Order Comment: Speci men Type: BLOOD SPECIMENOrdering Facility: [facility] Address: [address] [address] Performed By: #### 5 7021-8 ####[facility]IA [id number] [place] [address] [place] Platelet mean volume (Bld) [Entitic vol] 10.0 fL Normal 9.0-12.7 [facility] l Comment on above: Order Comment: Speci men Type: BLOOD SPECIMENOrdering Facility: [facility] Address: [address] Performed By: #### 5 7021-8 ####[facility] LABORATORYIA [id number] [place] [address] [place] Platelets (Bld) [#/Vol] 276 10*3/uL Normal 150-400 [facility] Comment on above: Order Comment: Speci men Type: BLOOD SPECIMENOrdering Facility: [facility] Address: [address] Performed By: #### 5 7021-8 ####[facility] LABORATORYIA [id number] [address] OF [facility] RBC (Bld) [#/Vol] 4.43 10*6/uL Normal 3.90-5.20 [facility] Comment on above: Order Comment: Speci men Type: BLOOD SPECIMENOrdering Facility: [facility] Address: [address] [place] [address] Performed By: #### 5 7021-8 ####[facility] LABORATORYIA [id number] [place] [id number] [facility] WBC (Bld) [#/Vol] 6.01 10*3/uL Normal 3.70-11.00 [facility] Comment on above: Order Comment: Speci men Type: BLOOD SPECIMENOrdering Facility: [facility] Address: [address] [place] [address] Performed By: #### 5 7021-8 ####[facility] [id number] [place] [id number] [facility] CONSULTon 04-30-2023 CONSULT HNO ID: [id number] Author: Dawn Cabello APRN.MANAGER STORAGE Service: Gastroenterology Author Type: Nurse Practitioner Type: [...] up with her GI and C[facility] at [facility] main Discussed case with Dr. Ornelas Subjective Ms. Aguilar is a 27-year-old G2, P1 13-week female female who presents to the emergency department for evaluation of abdominal pain. Patient has a history of Crohn's disease dx in 2013 c/b perinanal involvement s/p loop ileostomy '18 and states that she has been having [...] ground emesis. Denies vaginal bleeding, dysuria, hematuria, diarrhea/constipation . She does still past hard formed stool from the rectum as well even though she has loop ileostomy. States that she was seen at [facility] ER about a week and a half [...] - No dysplasia seen. OV 03/05/23 Yfn Alex GI MANAGER STORAGE: IMPRESSION (copied from previous notes and reflects today's medical decision making): Rola Aguilar is a 27 year old female with PMHx of SB/LB Crohn's Disease with perianal involvement (dx 2013) s/p DLI in 2018- since then she has not been on any IBD related medications. Previously treated with prednisone, Adalimumab (7733-1515, developed antibodies), and Ustekinumab (0198-2925, lost insurance). She recently was discharged from the hospital (from 01/08-01/21/2023) for abdominal pain, bleeding and stool per rectum. 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 She was started on IVCS with tr (more content not included)... Normal [facility] CRP SerPl-[facility] 04-30-2023 CRP [Mass/Vol] 4.7 mg/dL High <0.9 [facility] Comment on above: Order Comment: Speci men Type: BLOOD SPECIMENOrdering Facility: [facility] Address: [facility] [place] [address] Performed By: #### 1 988-5, 02354-1, 3040-3, 53775-5 ####[facility] LABORATORYCLIA [id number] [facility] [place] [address] [place] Calprotectin (Stl) [Mass/Mas s]on 04-30-2023 CALPROTECTIN, FECAL INTERP Elevated Abnormal Normal [facility] Comment on above: Order Comment: Speci men Type: STOOL SPECIMENOrdering Facility: [facility] Address: [place] [address] Result Comment: On 2022, [facility] [employer] implemented a new fecal calprotectin method, the [employer] L[employer]ison Calprotectin assay. For assistance with interpretation of results in patients undergoing serial monitoring, contact Client Services at [phone] or [phone] to discuss options, preferably within 7 days of issuing this report. Interpretation: <50.0 ug/g: Normal 50.0 ug/g - 120.0 ug/g: Borderline elevated. Re-evaluation in 4-6 weeks is recommended if clinically indicated. >120.0 ug/g: Elevated Performed By: #### 3 8445-3 ####[facility] LABCLIA [id number] [place] [address] [place] CALPROTECTIN, FECAL QUANTITATIVE 200 ug/g High <50 [facility] Comment on above: Order Comment: Speci men Type: STOOL SPECIMENOrdering Facility: [facility] Address: [address] [place] [id number] Performed By: #### 3 8445-3 ####[facility] LABCLIA [id number] [place] [id number] [place] Comprehensive metabolic 2000 panelon 04-30-2023 Albumin [Mass/Vol] 4.3 g/dL Normal 3.9-4.9 [facility] Comment on above: Order Comment: Speci men Type: BLOOD SPECIMENOrdering Facility: [facility] Address: [address] [place] [address] Performed By: #### 1 988-5, 65581-0, 3040-3, 72338-5 ####[facility] LABORATORYCLIA [id number] [facility] [place] [address] [place] ALP [Catalytic activity/Vol] 75 U/L Normal 34-123 [facility] Comment on above: Order Comment: Speci men Type: BLOOD SPECIMENOrdering Facility: [facility] Address: [address] Performed By: #### 1 988-5, 65963-3, 3040-3, 25653-9 ####[facility] LABORATORYCLIA [id number] [place] [address] [place] ALT [Catalytic activity/Vol] 11 U/L Normal 7-38 [facility] Comment on above: Order Comment: Speci men Type: BLOOD SPECIMENOrdering Facility: [facility] Address: [address] [address] Performed By: #### 1 988-5, 48895-7, 0-3, ####[facility] LABORATORYCLIA [id number] [place] [address] [place] Anion gap [Moles/Vol] 13 mmol/L Normal 9-18 [facility] Comment on above: Order Comment: Speci men Type: BLOOD SPECIMENOrdering Facility: [facility] Address: [address] Performed By: #### 1 988-5, 80154-1, 3039-3, ####[facility] LABORATORYCLIA [id number] [place] [address] [place] AST [Catalytic activity/Vol] 17 U/L Normal 13-35 [facility] Comment on above: Order Comment: Speci men Type: BLOOD SPECIMENOrdering Facility: [facility] Address: [address] Performed By: #### 1 988-5, 59709-2, 304-3, 46827-4 ####[facility] LABORATORYCLIA [id number] [place] [address] [place] Bilirubin [Mass/Vol] 0.4 mg/dL Normal 0.2-1.3 [facility] Comment on above: Order Comment: Speci men Type: BLOOD SPECIMENOrdering Facility: [facility] Address: [address] [id number] Performed By: #### 1 988-5, 97794-4, 0-3, ####[facility] LABORATORYIA [id number] [place] [address] [place] Calcium [Mass/Vol] 9.4 mg/dL Normal 8.5-10.2 [facility] Comment on above: Order Comment: Speci men Type: BLOOD SPECIMENOrdering Facility: [facility] Address: [address] Performed By: #### 1 988-5, 18783-1, 3039-3, ####[facility] [id number] [place] [address] [place] Chloride [Moles/Vol] 102 mmol/L Normal 97-105 [facility] Comment on above: Order Comment: Speci men Type: BLOOD SPECIMENOrdering Facility: [facility] Address: [address] Performed By: #### 1 988-5, 21440-6, 3039-3, ####[facility]ENTERIA [id number] [place] [address] [place] CO2 [Moles/Vol] 21 mmol/L Low 22-30 [facility] ital Comment on above: Order Comment: Speci men Type: BLOOD SPECIMENOrdering Facility: [facility] Address: [address] [place] [address] Performed By: #### 1 988-5, 35653-8, 3039-3, ####[facility] LABORATORYIA [id number] [place] [address] [place] Creatinine [Mass/Vol] 0.65 mg/dL Normal 0.58-0.96 [facility] Comment on above: Order Comment: Speci men Type: BLOOD SPECIMENOrdering Facility: [facility] Address: [address] [place], [place] [address] Performed By: #### 1 988-5, 18069-4, 3040-3, 02219-4 ####[facility] LABORATORYIA [id number] [place] [id number] [place] ESTIMATED GLOMERULAR FILTRATION RATE 124 mL/min/1.73m??? Normal >=60 [facility] Comment on above: Order Comment: Roya [place] ri[place] Type: BLOOD SPECIMENOrdering Facility: [facility] Address: [address] [place], [place] [address] Result Comment: Alysha mated Glomerular Filtration Rate [...] actual GFR. Performed By: #### 1 988-5, 28724-5, 3040-3, 68581-1 ####[facility] LABORATORYIA [id number] [place] [address] [place] Glucose [Mass/Vol] 86 mg/dL Normal 74-99 [facility] Comment on above: Order Comment: [place]a [place] ri[place] Type: BLOOD SPECIMENOrdering Facility: [facility] Address: [address] [place], [place] [address] Result Comment: The [place] Diabetes Association (ADA) provides guidance for cutoff [...] Standards of Medical Care in Diabetes 2016, [place] [employer]. Diabetes Care. 2016.39(Suppl 1). Performed By: #### 1 988-5, 29150-7, 3040-3, 51085-5 ####[facility]ITAL[facility]IA [id number] [place] [address] [place] Potassium [Moles/Vol] 3.7 mmol/L Normal 3.7-5.1 [facility] Comment on above: Order Comment: Speci men Type: BLOOD SPECIMENOrdering Facility: [facility] Address: [address] [place] [address] Performed By: #### 1 988-5, 06417-0, 3040-3, ####[facility]ITALCLIA [id number] [place] [address] [place] Protein [Mass/Vol] 8.7 g/dL High 6.3-8.0 [facility] Comment on above: Order Comment: Speci men Type: BLOOD SPECIMENOrdering Facility: [facility] Address: [address] [place] [address] Performed By: #### 1 988-5, 43901-3, 3040-3, ####[facility]ENTERIA [id number] [place] [address] [place] Sodium [Moles/Vol] 136 mmol/L Normal 136-144 [facility] Comment on above: Order Comment: Speci men Type: BLOOD SPECIMENOrdering Facility: [facility] Address: [address] [place] [address] Performed By: #### 1 988-5, 55502-7, 3040-3, ####[facility]ENTERIA [id number] [place] [address] [place] Urea nitrogen [Mass/Vol] 8 mg/dL Normal 7-21 [facility] Comment on above: Order Comment: Speci men Type: BLOOD SPECIMENOrdering Facility: [facility] Address: [address] [place] [address] Performed By: #### 1 988-5, 62630-1, 3040-3, 66668-1 ####[facility] LABORATORYCLIA [id number] [facility] [place] [address] [facility] ED NOTEon 04-30-2023 ED NOTE HNO ID: [id number] Author: Kanchan Stanton RN Service: ? Author Type: Registered Nurse Type: ED Notes Filed: 04/30/2023 9:01 PM Note Text: Report given to transport team and SHAHBAZ Espinoza at receiving facility. VSS. [facility] ED NOTE HNO ID: [id number] Author: Kanchan Stanton RN Service: ? Author Type: Registered Nurse Type: ED Notes Filed: 04/30/2023 9:04 PM Note Text: Pt states she does not want any pain meds for transport to . [facility] ED NOTE HNO ID: [id number] Author: Tom Rasheed RN Service: ? Author Type: Registered Nurse Type: ED Notes Filed: 04/30/2023 6:42 PM Note Text: Pt updated on current plan of care and bed assignment at . Pt agreeable to transfer at this time without further questions. [facility] ED NOTE HNO ID: [id number] Author: Tom Rasheed RN Service: ? Author Type: Registered Nurse Type: ED Notes Filed: 04/30/2023 2:21 PM Note Text: Pt states increasing pain with razor blade in my stomach description. Dr. Parham aware and orders being obtained. [facility] ED NOTE HNO ID: [id number] Author: Debbie Desir RN Service: ? Author Type: Registered Nurse Type: ED Notes Filed: 04/29/2023 11:17 PM Note Text: Report given to SHAHBAZ Worley. [facility] ED PROV NOTEon 04-30-2023 ED PROV NOTE HNO ID: [id number] Author: Bandar Parham DO Service: Emergency Medicine Author Type: Physician Type: ED Provider Notes Filed: 04/30/2023 4:04 PM Note Text: ED CONTINUATION OF CARE NOTE Code Status: Prior Assumed care from: Dr. Madden Presentation / Findings / Interventions / Plan / Items to Follow Up: ED Course as of 04/30/23 1603 Bandar Parham's Documentation SatApr 30, 2023 0722 Patient signed out to [...] unfortunately are unable to transfer her to [facility] because there are no beds available at this time. We cannot board her at [facility] because she is . The NOM and [...] PAGER/CONTACT #: BANDAR PARHAM 04/30/23 1604 Normal [facility] ED PROV NOTE HNO ID: [id number] Author: Tom Neal DO Service: Emergency Medicine [...] Course as of 04/30/23 1603 Others' Documentation Tue Apr 30, 2023 0722 Patient [...] unfortunately are unable to transfer her to [facility] because there are no beds available at this time. We cannot board her at [facility] because she is . The NOM and [...] TOM NEAL 04/30/23 1605 TOM NEAL 04/30/23 1750 [facility] ED PROV NOTE HNO ID: [id number] Author: Fernanda Madden DO Service: ? Author [...] of crohns disease. She was seen at [facility] for these same symptoms and recommendations were [...] pain. No sob. 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 Psychiatric/Behaviora l: Negative for confusion and decreased concentration. Physical [...] ear normal. Nose: Nose normal. Mouth/Throat: Lips: [place]. Mouth: Mucous membranes are moist. Pharynx: Oropharynx is clear. Eyes: General: Lids are normal. Vision grossly intact. Gaze aligned appropriately. No scleral icterus. Right eye: No discharge. Left eye: (more content not included)... Normal [facility] ESR Westergren method (Bld) [Velocity]on 04-30-2023 ESR (Bld) [Velocity] 40 mm/h High 0-20 [facility] Comment on above: Order Comment: Speci men Type: BLOOD SPECIMENOrdering Facility: [facility] Address: [address] [place] [address] Performed By: #### 4 537-7 ####[facility] LABCLIA [id number] [place] [address] [place] Gastrointestinal pathogens i dentified CORONA+probe Nom (Stl)on 04-30-2023 Campylobacter sp DNA CORONA+probe Nom (Unsp spec) Not detected Normal Not Detected [facility] Comment on above: Order Comment: Speci men Type: STOOL SPECIMENOrdering Facility: [facility] Address: [address] [place] [address] Performed By: #### 7 9390-1 ####[facility] LABCLIA [id number] [place] [address] [place] Salmonella sp DNA CORONA+probe Ql (Unsp spec) Not detected Normal Not Detected [facility] Comment on above: Order Comment: Speci men Type: STOOL SPECIMENOrdering Facility: [facility] Address: [address] [place] [address] Performed By: #### 7 9390-1 ####[facility] LABCLIA [id number] [address] [place] Shiga toxin stx gene CORONA+probe Nom (Unsp spec) Not detected Normal Not Detected [facility] Comment on above: Order Comment: Speci men Type: STOOL SPECIMENOrdering Facility: [facility] Address: [address] [place] [address] Performed By: #### 7 9390-1 ####[facility] LABCLIA [id number] [address] Shigella sp DNA CORONA+probe Ql (Unsp spec) Not detected Normal Not Detected [facility] Comment on above: Order Comment: Roya [place] ri[place] Type: STOOL SPECIMENOrdering Facility: [facility] Address: [address] [place] [address] Performed By: #### 7 9390-1 ####[facility] LABCLIA [id number] [address] HIGH SENSITIVITY TROPONIN T (INITIAL)on 04-30-2023 HIGH SENSITIVITY LUCY <6 Normal <12 [facility] Comment on above: Order Comment: [place] Type: BLOOD SPECIMENOrdering Facility: [facility] Address: [address] [place] [address] Result Comment: When assessing risk for acute [...] 30 day MACE. Performed By: #### L [id number] ####[facility] CENTERIA [id number] [address] HIGH SENSITIVITY TROPONIN T (SECOND)on 04-30-2023 HIGH SENSITIVITY LUCY <6 Normal <12 [facility] Comment on above: Order Comment: [place] ri[place] Type: BLOOD SPECIMENOrdering Facility: [facility] Address: [address] [place] [address] Result Comment: When assessing risk for acute [...] 30 day MACE. Performed By: #### L [id number] ####[facility] LABORATORYCLIA [id number] [address] [place] Lipase SerPl-cCncon 04-30-20 Lipase [Catalytic activity/Vol] 63 U/L High 16-61 [facility] Comment on above: Order Comment: Speci men Type: BLOOD SPECIMENOrdering Facility: [facility] Address: [address] [place] [address] Performed By: #### 1 988-5, 27315-0, 3040-3, 02258-6 ####[facility]ENTERIA [id number] [address] [place] Magnesium SerPl-mCncon 04-30 Magnesium [Mass/Vol] 1.8 mg/dL Normal 1.7-2.3 [facility] Comment on above: Order Comment: Speci men Type: BLOOD SPECIMENOrdering Facility: [facility] Address: [address] [place] [address] Performed By: #### 1 988-5, 91379-3, 3040-3, 40428-8 ####[facility] CENTERIA [id number] [place] [id number] [place] Urinalysis complete panel (U )on 04-30-2023 Bacteria LM.HPF (Urine sed) [#/Area] Rare Abnormal None Seen [facility] Comment on above: Order Comment: Speci men Type: URINE SPECIMENOrdering Facility: [facility] Address: [address] [place] [address] Performed By: #### 2 4356-8 ####[facility]ENTERIA [id number] [place] [address] [place] Bilirubin Ql (U) Negative Normal Negative [facility] Comment on above: Order Comment: Speci men Type: URINE SPECIMENOrdering Facility: [facility] Address: [address] [place] [address] Performed By: #### 2 4356-8 ####[facility]ENTERIA [id number] [place] [address] [place] Clarity (Unsp spec) Clear Normal Clear [facility] Comment on above: Order Comment: Speci men Type: URINE SPECIMENOrdering Facility: [facility] Address: [address] [address] Performed By: #### 2 4356-8 ####[facility]ENTERIA [id number] [place] [address] [place] Color (U) Colorless Normal yellow [facility] Comment on above: Order Comment: Speci men Type: URINE SPECIMENOrdering Facility: [facility] Address: [address] [address] Performed By: #### 2 4356-8 ####[facility] [id number] [place] [id number] [place] Epithelial cells LM.HPF (Urine sed) [#/Area] Few Normal [facility] Comment on above: Order Comment: Speci men Type: URINE SPECIMENOrdering Facility: [facility] Address: [address] [place] [address] Performed By: #### 2 4356-8 ####[facility]ENTERIA [id number] [place] [address] [place] Glucose Test strip (U) [Mass/Vol] Negative Normal Trace, Negative [facility] Comment on above: Order Comment: Speci men Type: URINE SPECIMENOrdering Facility: [facility] Address: [address] [place] [address] Performed By: #### 2 4356-8 ####[facility]ENTERIA [id number] [place] [address] [place] Hemoglobin Ql (U) Negative Normal Negative, Trace [facility] Comment on above: Order Comment: Speci men Type: URINE SPECIMENOrdering Facility: [facility] Address: [address] [place] [address] Performed By: #### 2 4356-8 ####[facility]ENTERIA [id number] [place] [address] [place] Ketones Ql (U) 1+ Abnormal Negative, Trace [facility] Comment on above: Order Comment: Speci men Type: URINE SPECIMENOrdering Facility: [facility] Address: [address] [address] Performed By: #### 2 4356-8 ####[facility] [id number] [address] [place] Leukocyte esterase Test strip Ql (U) Negative Normal Negative, 25 Cristela/uL [facility] Comment on above: Order Comment: Speci men Type: URINE SPECIMENOrdering Facility: [facility] Address: [address] [place] [address] Performed By: #### 2 4356-8 ####[facility] [id number] [place] [address] [place] Nitrite Ql (U) Negative Normal Negative [facility] Comment on above: Order Comment: Speci men Type: URINE SPECIMENOrdering Facility: [facility] Address: [address] [place] [address] Performed By: #### 2 4356-8 ####[facility] [id number] [place] [address] [place] pH (U) 6.0 [pH] Normal 5.0-8.0 [facility] Comment on above: Order Comment: Speci men Type: URINE SPECIMENOrdering Facility: [facility] Address: [address] [place] [address] Performed By: #### 2 4356-8 ####[facility]IA [id number] [address] [place] Protein (U) [Mass/Vol] Negative Normal Trace , Negative [facility] Comment on above: Order Comment: Speci men Type: URINE SPECIMENOrdering Facility: [facility] Address: [address] [place] [address] Performed By: #### 2 4356-8 ####[facility]ENTERIA [id number] [place] [address] [place] RBC LM.HPF (Urine sed) [#/Area] 0-3 /HPF Normal 0-3 /HPF [facility] Comment on above: Order Comment: Speci men Type: URINE SPECIMENOrdering Facility: [facility] Address: [address] [place] [address] Performed By: #### 2 4356-8 ####[facility] LABORATORYIA [id number] [place], [place] [address] [place] [address] [place] Specific gravity (U) [Rel density] 1.008 Normal 1.005-1.030 [facility] Comment on above: Order Comment: Speci men Type: URINE SPECIMENOrdering Facility: [facility] Address: [address] [place] [address] Performed By: #### 2 4356-8 ####[facility] [id number] [address] [place] Urobilinogen Ql (U) Normal Normal Negative [facility] Comment on above: Order Comment: Speci men Type: URINE SPECIMENOrdering Facility: [facility] Address: [address] [place] [address] Performed By: #### 2 4356-8 ####[facility] [id number] [address] [place] WBC LM.HPF (Urine sed) [#/Area] 0-5 /HPF Normal 0-5 /HPF [facility] Comment on above: Order Comment: Speci men Type: URINE SPECIMENOrdering Facility: [facility] Address: [address] [place] [address] Performed By: #### 2 4356-8 ####[facility]IA [id number] [place] [address] [place] ECG COMPLETEon 04-29-2023 ECG COMPLETE Ventricular Rate : 8 9 BPM Atrial Rate : 89 BPM P-R Interval : 148 ms QRS Duration : 76 ms Q-T Interval : 336 ms QTC Calculation(Bazett) : 408 ms Calculated P [place] : 51 degrees Calculated R [place] : 62 degrees Calculated T [place] : 32 degrees Normal sinus rhythm Possible Left atrial enlargement Borderline ECG no stemi Confirmed by GOYKHMAN MARA GILES ([id number]), editor trade journal Yee Mcdonald ([id number]) on 04/30/2023 8:43:13 AM NAME : ROLA AGUILAR PID : [id number] : 1995 Gender : Female Race : ORD : [id number] Procedure Date : Apr 29 2023 18:52:17 Edit Date : Apr 30 2023 08:43:14 Diagnosis: Normal sinus rhythm Possible Left atrial enlargement Borderline ECG no stemi Confirmed by MARA COLEMAN MD ([id number]), editor trade journal Yee Mcdonald ([id number]) on 04/30/2023 8:43:13 AM Test Reason : Chest Pain Location : 302 : ED ED Overread By : MARA COLEMAN MD Edited By : Yee Mcdonald Referred By : , Acquired by : [id number], [facility] ED NOTEon 04-29-2023 ED NOTE HNO ID: [id number] Author: Debbie Desir RN Service: ? Author Type: Registered Nurse Type: ED Notes Filed: 04/29/2023 6:48 PM Note Text: Pt arrived to the ED from work with complaints of generalized abdominal pain, palpitations, chills, and n/v that started 2 wks ago. Pt reports she is currently having a Crohn's flare up and is 13wks . Pt stable at this time. [facility] ED Triage Noteon 04-29-2023 ED Triage Note HNO ID: [id number] Author: Justice Ortiz PA-C Service: ? Author Type: Physician Director Clinical Research Type: ED Triage Notes Filed: 04/29/2023 7:02 [...] to nausea/vomiting. Denies vaginal bleeding, dysuria, hematuria, diarrhea/constipation . 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 Staffing Director: MARK Transcribe Date/Time: Apr 29 2023 8:02P Dictated by : SUNIL LORENZ MD This examination was interpreted and the report reviewed and electronically signed by: SUNIL LORENZ MD on Apr 29 2023 8:10PM EST [id number] N [facility] US PREG TRANSABD <14 WKS LTD on 04-29-2023 US PREG TRANSABD <14 WKS LTD * * *Final Report* * * DATE OF EXAM: Apr 29 2023 7:18PM [facility] 1035 - US PREG TRANSABD <14 WKS LTD / PROCEDURE REASON: Pelvic pain, positive beta-HCG, chemical engineering technologist etiology suspected * * * * Physician [...] Not seen - Embryo: Single present - Daniels rump length: 6.8 cm, corresponding gestational age [...] weeks, 1 days by crown rump length. Staffing Director: PSCB Transcribe Date/Time: Apr 29 2023 8:02P Dictated by : SUNIL LORENZ MD This examination was interpreted and the report reviewed and electronically signed by: SUNIL LORENZ MD on Apr 29 2023 8:10PM EST [id number] N [facility] Discharge Instructionson Discharge Instructions [id number]# 1.00CD:127 Normal [facility] ED Clinical Summaryon 2022 ED Clinical Summary [address] [address] ED Clinical Summary Person Information Name: ROLA [facility]ILAR [facility] Age[facility] 27 Years : 1995 Sex: Female Language: [place]uran PCP: NONE, XXXX Marital Status: Single Phone: [phone] Visit Id: Visit Reason: Vomiting; Abdominal pain; [...] 04/27/2023 03:09:00 04/27/2023 03:09:00 04/27/2023 03:09:00 ADDRESS: [address] [place] [address] [place] [phone] PHYS DOC NOTES: MEDICAL INFORMATION: Prescriptions Given: New Medications [facility]/pharmacy #[id number], [address] [place], [place] [id number], [phone] metoclopramide (metoclopramide 10 mg oral tablet, disintegrating) 1 Tablets By Mouth every 6 hours as needed Nausea/Vomiting. Refills: 0. Medications to Continue with No Changes Other Medications acetaminophen-hydroco done ([place]asha 325 mg-5 mg oral tablet) 1 Tablets By Mouth every 6 hours as needed for pain. Refills: 0. acetaminophen-hydroco done ([place] 325 mg-5 mg oral tablet) 1 Tablets By Mouth every 6 hours as needed for pain. Refills: 0. acetaminophen-oxycodo ne (Percocet 325 mg-5 mg Tab) 1 Tablets By Mouth every 6 hours as needed as needed for pain. Refills: 0. acetaminophen-oxycodo ne (Percocet 5 mg-325 mg oral tablet) 1 Tablets By Mouth every 6 hours. Refills: 0. acetaminophen-oxycodo ne (Percocet 5 mg-325 mg oral tablet) 1 Tablets By Mouth every 6 hours. Refills: 0. acetaminophen-oxycodo ne (Percocet 5 mg-325 mg oral tablet) 1 [...] EDUCATION INFORMATION: Instructions: Second Trimester of , Deya-if-Qzot; Crohn's Disease; Abdominal Pain, Adult, Jtzh-ri-Xohc Follow up: With: Address: When: Follow up with Dr Ozuna at [facility] In 3 days 04/30/2023 DIAGNOSIS: 1:Abdominal pain in female; 2:; 3:Nausea & vomiting Normal [facility] ED Note-Physicianon 04-27-20 ED Note-Physician Basic Information Time Seen: Jess Gunn PA-C 04/26/2023 23:45 Chief Complaint started 2 weeks ago with a chrons flare up. Was at [facility] and put on steroids. says if pain was worse to go back to ER. Is 12 weeks History of Present Illness This patient presents to the emergency department with chief complaint of abdominal pain, nausea, vomiting. The patient states this has been going on for 2 weeks. She was seen at the [facility] diagnosed with acute exacerbation of Crohn's disease. She was placed on steroids. She states she went to the [facility] emergency department this evening, but there [...] concentrating, paranoia, anhedonia, lack of energy, socorro Hematologic/lymphatic : Denies any purpura, petechiae, excessive bleeding, bruising [...] care, home-go (more content not included)... Normal [facility] Comment on above: Result Comment: Elec tronically [...] these instructions at home: Medicines ? Take ljbt-kaq-rssznzn and prescription medicines only as told by [...] belly pain for any changes. ? Take jkwt-qqv-afiqfij and prescription medicines only as told by [...] provider. Document Revised: 01/18/2020 Document Reviewed: 01/18/2020 [employer] Patient Education ? 2022 [employer] Immunology Crohn's Disease Crohn's disease is [...] to w (more content not included)... Normal [facility] ED Patient Summaryon 023 ED Patient Summary [place] [id number] Patient Discharge Instructions Person Information Name: ROLA AGUILAR Age: 27 Years Arrival Date: 04/26/2023 22:10:17 Discharge Diagnosis: 1:Abdominal pain in female; 2:; 3:Nausea & vomiting Primary Care Physician: NONE, XXXX Provider Information Primary Provider: Alfred Graham DO Advanced Implementation Lead:None The exam and treatment you received in the Emergency Department were for an urgent problem and are not intended as complete care. It is important that you follow up with a doctor, nurse practitioner, or physician?s back office medical assistant for ongoing care. If your symptoms become [...] When: Follow up with Dr Ozuna at [facility] In 3 days 04/30/2023 In the event that this physician does not participate in your insurance network, please consult with your insurance company to find a nearby participating provider. Patient Education Materials: Second Trimester of , Ghgj-gy-Yuev; Crohn's Disease; Abdominal Pain, Adult, Diuz-jl-Prrf A MESSAGE TO ALL PATIENTS REGARDING OPIOIDS PRESCRIPTION OPIOIDS: WHAT YOU NEED TO KNOW Prescription opioids can be used to help relieve veoudjnp-bo-zriotz pain and are often prescribed following a [...] guidance from the Food and Drug Administration (www.fda.gov/Drugs/Re sourcesForYou). ? Visit www.cdc.gov/drugoverd ose to learn about the risks of opioids abuse and overdose. ? If you believe you may be struggling with addiction, tell your health career representative and ask for guidance or call SA (more content not included)... Normal [facility] UA With Cult Reflexon 2022 Bacteria LM Ql (Urine sed) TRACE Normal Trace [facility] Comment on above: Performed By: #### 2 549311, 4978053, 1101962, 9523952, 0237379, 18555672 #### [facility] [address] [place] [address] Bilirubin Ql (U) Negative Normal Negative [facility] Comment on above: Performed By: #### 2 699920, 9912967, 0789723, 8779046, 0115218, 62946585 #### [facility] [address] [place] [address] Clarity (U) CLEAR Normal Clear [facility] Comment on above: Performed By: #### 2 298617, 5124801, 3035820, 3464452, 5560668, 40509170 #### [facility] [address] [place] [address] Color (U) YELLOW Normal Yellow [facility] Comment on above: Performed By: #### 2 629246, 9506749, 7289203, 1357105, 1396576, 42881633 #### [facility] [address] [place] [address] Epithelial cells.squamous LM.HPF (Urine sed) [#/Area] 5-8 Normal 0-2 [facility] Comment on above: Performed By: #### 2 006458, 4300544, 3422953, 7134967, 6412581, 71332168 #### [facility] [address] [place] [address] Glucose Test strip (U) [Mass/Vol] Negative Normal Negative [facility] Comment on above: Performed By: #### 2 061245, 9696672, 8425623, 3459911, 1373252, 67701948 #### [facility] [address] [place] [address] Hemoglobin Ql (U) Negative Normal Negative [facility] Comment on above: Performed By: #### 2 129872, 0028315, 7800104, 1932406, 6608867, 17472018 #### [facility] [address] [place] [address] Ketones (U) [Mass/Vol] Negative Normal Negative [facility] Comment on above: Performed By: #### 2 495124, 8265053, 6550452, 1876240, 7860874, 19128451 #### [facility] [address] [place] [address] [place].plasma/[place] .RBC (Bld) [Mass ratio] 0-3 Normal 0-3 [facility] Comment on above: Performed By: #### 2 097800, 0120023, 9147027, 5276467, 6522488, 74477933 #### [facility] [address] [place] [address] Mucus Ql (Urine sed) TRACE Normal Fish [facility] Comment on above: Performed By: #### 2 242402, 1114902, 0436025, 2046075, 7302367, 49688227 #### [facility] [address] [place] [address] Nitrite Ql (U) Negative Normal Negative [facility] Comment on above: Performed By: #### 2 534958, 7433466, 9808323, 3996663, 8778290, 94776866 #### [facility] [address] [place] [address] pH (U) 5.5 [pH] Invalid Interpretation Code 5.0-9.0 [facility] Comment on above: Performed By: #### 2 650706, 4870984, 0631509, 0621238, 6057503, 62861511 #### [facility] [address] [place] [address] Protein (U) [Mass/Vol] Negative Normal Negative [facility] Comment on above: Performed By: #### 2 599179, 6347361, 2511444, 6342515, 0291002, 26145947 #### [facility] [address] [place], [place] [address] Specific gravity (U) [Rel density] <=1.005 Invalid Interpretation Code 1.005-1.030 [facility] Comment on above: Performed By: #### 2 320390, 9098230, 1254230, 8482819, 8372763, 81386026 #### [facility] [address] [place], [place] [address] Type of Urine collection method Clean Catch Normal [facility] Comment on above: Performed By: #### 2 007945, 0931667, 1058551, 0063189, 1359874, 01593656 #### [facility] [address] [place], [place] [address] Urobilinogen Qn (U) 0.2 {Keyla'U}/dL Normal 0.0-1.0 [facility] Comment on above: Performed By: #### 2 260149, 6931001, 7351268, 5106122, 4608613, 23883377 #### [facility] [address] [place], [place] [address] WBC Auto Ql (U) TRACE Abnormal Negative [facility] Comment on above: Performed By: #### 2 421902, 4284596, 1935289, 0095343, 0636066, 68013946 #### [facility] [address] [place], [place] [address] WBC LM.HPF (Urine sed) [#/Area] 0-5 Normal 0-5 [facility] Comment on above: Performed By: #### 2 902522, 9931252, 9140540, 3737533, 2347626, 20767722 #### [facility] [address] [place] [address] URINALYSISOrdered By: Abelino Thapa on 04-27-2023 Bacteria LM Ql (Urine sed) Trace /HPF Normal Trace/HPF [facility] U[facility] Auto SS Bilirubin Ql (U) Negative (04/27/23 1:41 AM) Normal Negative [facility] Auto SS Clarity (U) Clear (04/27/23 1:41 AM) Normal Clear [facility] UA Auto SS Color (U) Yellow (04/27/23 1:41 AM) Normal Yellow [facility] UA Auto SS Epithelial cells.squamous LM.HPF (Urine sed) [#/Area] 5-8 /HPF Normal 0-2/HPF [facility] UA Aut o SS Glucose Test strip (U) [Mass/Vol] Negative (04/27/23 1:41 AM) Normal Negative [facility] UA Auto SS Hemoglobin Ql (U) Negative (04/27/23 1:41 AM) Normal Negative [facility] UA Auto SS Ketones (U) [Mass/Vol] Negative (04/27/23 1:41 AM) Normal Negative [facility] UA Auto SS [place].plasma/[place] .RBC (Bld) [Mass ratio] 0-3 /HPF Normal 0-3/HPF [...] Desc Clean Catch (04/27/23 1:41 AM) Normal [facility] UA Auto SS Urobilinogen Qn (U) 0.4764966 {Keyla'U}/dL Normal 0.0 - 1.0 EU/dL [facility] UA Auto SS WBC Auto Ql (U) Trace *ABN* (04/27/23 1:41 AM) Invalid Interpretation Code Negative [facility] UA Auto SS WBC LM.HPF (Urine sed) [#/Area] 0-5 /HPF Normal 0-5/HPF [facility] UA Auto SS Auto Diffon 04-26-2023 Basophils/100 WBC (Bld) 0.2 % Normal 0.0-2.0 [facility] Comment on above: Order Comment: Order Added by Discern Expert. Performed By: #### 2 390043, 9516028, 0549059, 2663652, 3640756, 23831135 #### [facility] [address] [place] [address] Basophils/Leukocytes Auto (Bld) [Pure # fraction] 0.0 E9/L Normal 0.0-0.2 [facility] Comment on above: Order Comment: Order Added by Discern Expert. Performed By: #### 2 080805, 2177183, 8982415, 4293196, 6110541, 85633598 #### [facility] [address] [place] [address] Eosinophils/100 WBC (Bld) 0.9 % Normal 0.0-8.0 [facility] Comment on above: Order Comment: Order Added by Discern Expert. Performed By: #### 2 474297, 6596323, 2919187, 1387376, 6862146, 10077738 #### [facility] [address] [place] [address] Eosinophils/Leukocytes Auto (Bld) [Pure # fraction] 0.1 E9/L Normal 0.0-0.5 [facility] Comment on above: Order Comment: Order Added by Discern Expert. Performed By: #### 2 997750, 8254943, 3749340, 7620635, 4064085, 47275862 #### [facility] [address] [place] [address] Lymphocytes/100 WBC (Bld) 19.3 % Normal 14.0-50.0 [facility] Comment on above: Order Comment: Order Added by Discern Expert. Performed By: #### 2 389942, 4475801, 5347416, 3422149, 6981848, 36728636 #### [facility] [address] [place] [address] Lymphocytes/Leukocytes Auto (Bld) [Pure # fraction] 1.3 E9/L Normal 1.0-4.0 [facility] Comment on above: Order Comment: Order Added by Discern Expert. Performed By: #### 2 439027, 0279023, 5199544, 4874053, 1301597, 94327986 #### [facility] [address] [place] [address] Monocytes/100 WBC (Bld) 5.9 % Normal 4.0-14.0 [facility] Comment on above: Order Comment: Order Added by Discern Expert. Performed By: #### 2 854982, 7984809, 1844054, 2137534, 0774048, 99469062 #### [facility] [address] [place] [address] Monocytes/Leukocytes Auto (Bld) [Pure # fraction] 0.4 E9/L Normal 0.2-1.0 [facility] Comment on above: Order Comment: Order Added by Discern Expert. Performed By: #### 2 900020, 6685904, 5194053, 3273820, 3132635, 87187755 #### [facility] [address] [place] [address] Neutrophils/100 WBC (Bld) 73.7 % Normal 36.0-75.0 [facility] Comment on above: Order Comment: Order Added by Discern Expert. Performed By: #### 2 467362, 8338875, 3762554, 5505487, 9157449, 14764679 #### [facility] [address] [place] [address] Neutrophils/Leukocytes Auto (Bld) [Pure # fraction] 5.1 E9/L Normal 2.0-7.5 [facility] Comment on above: Order Comment: Order Added by Discern Expert. Performed By: #### 2 854751, 6531759, 6615984, 5716539, 3770286, 58203110 #### [facility] [address] [place] [address] BMPon 04-26-2023 Creatinine [Mass/Vol] 0.8 mg/dL Normal 0.5-1.3 [facility] Comment on above: Performed By: #### 2 329388, 1159535, 3339723, 3538696, 7148826, 76622053 #### [facility] [address] [place] [address] Urea nitrogen [Mass/Vol] 10 mg/dL Normal 5-21 [facility] Comment on above: Performed By: #### 2 285344, 6038213, 0568764, 8535141, 0025239, 86212782 #### [facility] [address] [place] [address] Urea nitrogen/Creatinine [Mass ratio] 12 No Units Normal 10-20 [facility] Comment on above: Performed By: #### 2 775858, 5102134, 3367343, 1500067, 0974861, 01548684 #### [facility] [address] [place] [address] Anion gap [Moles/Vol] 15 mmol/L Normal 6-16 [facility] Comment on above: Performed By: #### 2 247133, 2570209, 3744735, 4781420, 3559321, 65086665 #### [facility] [address] [place] [address] Calcium [Mass/Vol] 9.5 mg/dL Normal 8.9-11.1 [facility] Comment on above: Performed By: #### 2 525511, 8354954, 3289913, 2961936, 7955573, 78300642 #### [facility] [address] [place] [address] Chloride [Moles/Vol] 103 mmol/L Normal 101-[address] [facility] Comment on above: Performed By: #### 2 847501, 5675191, 0612650, 1759274, 4589262, 68554995 #### [facility] [address] [place] [address] CO2 [Moles/Vol] 22 mmol/L Normal 21-31 [facility] Comment on above: Performed By: #### 2 937163, 7401965, 2982841, 0066279, 5648891, 25238509 #### [facility] [address] [place] [address] Glucose [Mass/Vol] 91 mg/dL Normal 55-199 [facility] Comment on above: Result Comment: If t his glucose result represents a fasting glucose, interpretation should refer to the following reference range: 55-99 mg/dL Performed By: #### 2 497518, 9925846, 0979741, 5595264, 2168701, 04765541 #### [facility] [address] [place] [address] Potassium [Moles/Vol] 3.6 mmol/L Normal 3.5-5.3 [facility] Comment on above: Performed By: #### 2 132118, 9330686, 5516114, 7247142, 4212194, 83098582 #### [facility] [address] [place] [address] Sodium [Moles/Vol] 136 mmol/L Normal 135-145 [facility] Comment on above: Performed By: #### 2 780024, 9267302, 6021302, 4616094, 7722503, 39103187 #### [facility] [address] [place] [address] CBC w/ Auto Diffon 3 Erythrocyte distribution width (RBC) [Ratio] 15.3 % High 10.9-14.2 [facility] Comment on above: Performed By: #### 2 743806, 7244688, 2093541, 5248248, 7135141, 67997133 #### [facility] [address] [place] [address] Hematocrit (Bld) [Volume fraction] 35.4 % Normal 34.0-46.0 [facility] Comment on above: Performed By: #### 2 743759, 7372398, 0759352, 7704177, 5770616, 67323900 #### [facility] [address] [place] [address] Hemoglobin (Bld) [Mass/Vol] 11.6 g/dL Low 12.0-16.0 [facility] Comment on above: Performed By: #### 2 004482, 1626411, 1231727, 1715832, 4469785, 42208506 #### [facility] [address] [place] [address] MCH (RBC) [Entitic mass] 25.6 pg Low 27.0-34.0 [facility] Comment on above: Performed By: #### 2 305627, 1342210, 8054464, 0430702, 5024349, 76142454 #### [facility] [address] [place], [place] [address] MCHC (RBC) [Mass/Vol] 32.8 g/dL Normal 31.4-36.0 [facility] Comment on above: Performed By: #### 2 318570, 4657004, 8903037, 8527893, 9475587, 38241133 #### [facility] [address] [place], [place] [address] MCV (RBC) [Entitic vol] 77.8 fL Low 80.0-100.0 [facility] Comment on above: Performed By: #### 2 583165, 9539027, 5726309, 5556542, 8876443, 31787518 #### [facility] [address] [place], [place] [address] Platelet mean volume (Bld) [Entitic vol] 7.6 fL Normal 6.4-10.8 [facility] Comment on above: Performed By: #### 2 475769, 4752274, 7398860, 8887450, 0126793, 19217669 #### [facility] [address] [place] [address] Platelets (Bld) [#/Vol] 272.0 E9/L Normal 150.0-500.0 [facility] Comment on above: Performed By: #### 2 151116, 6465299, 1695805, 1768038, 8598243, 61462233 #### [facility] [address] [place] [address] RBC (Bld) [#/Vol] 4.6 E12/L Normal 4.3-5.9 [facility] Comment on above: Performed By: #### 2 501988, 4736112, 6953715, 3138233, 5603349, 99872799 #### [facility] [address] [place] [address] WBC corrected for nucl RBC Auto (Bld) [#/Vol] 7.0 E9/L Normal 4.0-11.0 [facility] Comment on above: Performed By: #### 2 487701, 5904125, 7197453, 5543205, 2738005, 94994450 #### [facility] [address] [place] [address] CHEMISTRYOrdered By: SYSTEM SYSTEM on 04-26-2023 Albumin [...] 15 mmol/L Normal 6 - 16 mEq/L F [facility] Remisol AST [Catalytic activity/Vol] 16 [iU]/d Normal [...] 22 mmol/L Normal 21 - 31 mmol/L [facility] Creatinine [Mass/Vol] 0.8 mg/dL Normal 0.5 - 1.3 mg/dL [facility] GFR/1.73 sq M.predicted among non-blacks MDRD (S/P/Bld) [Vol rate/Area] 104 mL/min/1.73 m2 Normal >=59mL/min/1.7 3 m2 [facility] Chem S Globulin (S) [Mass/Vol] 4.6 g/dL High 1.4 - 4.0 gm/dL [facility] Glucose [Mass/Vol] 91 mg/dL Normal 55 - 199 mg/dL [facility] Lipase [Catalytic activity/Vol] 47 U/L Normal [...] ratio] 12 mg/mg Normal 10 - 20 [facility] Remisol Consent for Treatmenton Consent for Treatment [id number]#1 .00CD:127 Normal [facility] ED Note-Physicianon 04-26-20 ED Note-Physician [id number]#1 .00CD:127 Normal [facility] HEMATOLOGYOrdered By: SYSTEM SYSTEM on 04-26-2023 Basophils/100 WBC (Bld) 0.2 % Normal 0.0 - 2.0 % [facility] HemeAutoSS Basophils/Leukocytes Auto (Bld) [Pure # fraction] 0.0 E9/L Normal 0.0 - 0.2 E9/L [facility] HemeAutoSS Eosinophils/100 WBC (Bld) 0.9 % Normal 0.0 - 8.0 % [facility] HemeAutoSS Eosinophils/Leukocytes Auto (Bld) [Pure # fraction] 0.1 E9/L Normal 0.0 - 0.5 E9/L [facility] HemeAutoSS Lymphocytes/100 WBC (Bld) 19.3 % Normal 14.0 - 50.0 % [facility] HemeAutoSS Lymphocytes/Leukocytes Auto (Bld) [Pure # fraction] 1.3 E9/L Normal 1.0 - 4.0 E9/L [facility] HemeAutoSS Monocytes/100 WBC (Bld) 5.9 % Normal 4.0 - 14.0 % [facility] HemeAutoSS Monocytes/Leukocytes Auto (Bld) [Pure # fraction] 0.4 E9/L Normal 0.2 - 1.0 E9/L [facility] HemeAutoSS Neutrophils/100 WBC (Bld) 73.7 % Normal 36.0 - 75.0 % [facility] HemeAutoSS Neutrophils/Leukocytes Auto (Bld) [Pure # fraction] 5.1 E9/L [...] 7.0 E9/L Normal 4.0 - 11.0 E9/L [facility] HemeAutoSS Hep Func Panelon 04-26-2023 Bilirubin.indirect [Mass or moles/Vol] UTC Abnormal 0.1-0.9 [facility] Comment on above: Result Comment: Resu lt verified by Discern Rule. Performed result UT (Unable to Calculate) was sent as an Alpha code due the inability to calculate a valid numeric value. Performed By: #### 2 013238, 6302567, 3142183, 2507769, 6157872, 94059097 ####[facility] [address] [place] [address] Albumin [Mass/Vol] 4.0 g/dL Normal 3.3-5.0 [facility] Comment on above: Performed By: #### 2 846597, 0581982, 3036364, 7576882, 8371704, 72654704 ####[facility] [address] [place] [address] Albumin/Globulin (S) [Mass conc ratio] 0.9 Low 1.1-2.2 [facility] Comment on above: Performed By: #### 2 158514, 8121934, 2671292, 1369283, 2724761, 85920060 ####[facility] [address] [place] [address] ALP [Catalytic activity/Vol] 63 Int._Unit/L Normal 21-98 [facility] Comment on above: Performed By: #### 2 151995, 3375653, 9405041, 0768140, 0667414, 31679713 ####[facility] [address] [place] [address] ALT No additional P-5'-P [Catalytic activity/Vol] 16 Int._Unit/L Normal 6-46 [facility] Comment on above: Performed By: #### 2 708733, 8157535, 2150230, 4544236, 3099140, 59017234 ####[facility] [address] [place] [address] AST [Catalytic activity/Vol] 16 Int._Unit/L Normal 5-43 [facility] Comment on above: Performed By: #### 2 518622, 3996383, 3128918, 4460869, 6050828, 02841143 ####[facility] [address] [place] [address] Bilirubin [Mass/Vol] 0.6 mg/dL Normal 0.0-1.[address] [facility] Comment on above: Performed By: #### 2 567613, 6797980, 7732707, 0773308, 4768222, 32597859 ####[place] [address] [place] [address] Globulin (S) [Mass/Vol] 4.6 g/dL High 1.4-4.0 [facility] Comment on above: Performed By: #### 2 827356, 0991180, 0831075, 0692897, 4958070, 39330893 ####[address] [address] Protein [Mass/Vol] 8.6 g/dL High 6.0-7.8 [facility] Comment on above: Performed By: #### 2 234971, 0636437, 3862659, 6349851, 1040443, 26452260 ####[place] [address] [place] [address] Bilirubin.direct [Mass/Vol] mg/dL Normal 0.1-0.4 [facility] Comment on above: Performed By: #### 2 323839, 5210899, 7833925, 8608818, 9472567, 35418475 ####[facility] [address] [place] [address] Lipase Levelon 04-26-2023 Lipase [Catalytic activity/Vol] 47 U/L Normal 13-58 [facility] Comment on above: Performed By: #### 2 630611, 4401152, 0732466, 4571447, 8152928, 99832953 #### [facility] [address] [place] [address] eGFRon 04-26-2023 GFR/1.73 sq M.predicted among non-blacks MDRD (S/P/Bld) [Vol rate/Area] 104 mL/min/1.73 m2 Normal >=59 [facility] Comment on above: Order Comment: Order added by Discern Expert. Result Comment: Ordering Machine Operator sammie kidney disease could be indicated at eGFR's of less than 60 mL/min/1.73m2. Kidney failure is indicated at less than 15 mL/min/1.73m2. Performed By: #### 2 709764, 8810807, 1346214, 1661978, 7809380, 82891584 #### [facility] [address] [place] [address] Auto Diffon 04-15-2023 Basophils/100 WBC (Bld) 0.3 % Normal 0.0-2.0 [facility] Comment on above: Order Comment: Order Added by Discern Expert. Performed By: #### 2 783955, 5971622, 0969095, 5822348, 1488417, 38417209 #### [facility] [address] [place] [address] Basophils/Leukocytes Auto (Bld) [Pure # fraction] 0.0 E9/L Normal 0.0-0.2 [facility] Comment on above: Order Comment: Order Added by Discern Expert. Performed By: #### 2 718617, 7874120, 7289617, 0409027, 5273435, 66499019 #### [facility] [address] [place] [address] Eosinophils/100 WBC (Bld) 1.9 % Normal 0.0-8.0 [facility] Comment on above: Order Comment: Order Added by Esdras Expert. Performed By: #### 2 702351, 5252969, 6434517, 1632691, 2385420, 41088066 #### [facility] [address] [place] [address] Eosinophils/Leukocytes Auto (Bld) [Pure # fraction] 0.1 E9/L Normal 0.0-0.5 [facility] Comment on above: Order Comment: Order Added by Discern Expert. Performed By: #### 2 904293, 9086151, 9229467, 9910215, 3194833, 45785447 #### [facility] [address] [place] [address] Lymphocytes/100 WBC (Bld) 20.5 % Normal 14.0-50.0 [facility] Comment on above: Order Comment: Order Added by Discern Expert. Performed By: #### 2 763842, 9414787, 4872542, 6464776, 5478857, 87979047 #### [facility] [address] [place] [address] Lymphocytes/Leukocytes Auto (Bld) [Pure # fraction] 1.4 E9/L Normal 1.0-4.0 [facility] Comment on above: Order Comment: Order Added by Esdras Expert. Performed By: #### 2 750061, 6635335, 2157904, 6202059, 5115391, 69460961 #### [facility] [address] [place] [address] Monocytes/100 WBC (Bld) 7.6 % Normal 4.0-14.0 [facility] Comment on above: Order Comment: Order Added by Esdras Expert. Performed By: #### 2 575399, 9845638, 9726691, 3347697, 3192596, 31026222 #### [facility] [address] [place] [address] Monocytes/Leukocytes Auto (Bld) [Pure # fraction] 0.5 E9/L Normal 0.2-1.0 [facility] Comment on above: Order Comment: Order Added by Esdras Expert. Performed By: #### 2 486703, 7327857, 3083162, 8567879, 1228647, 56351984 #### [facility] [address] [place] [address]24[address] Neutrophils/100 WBC (Bld) 69.7 % Normal 36.0-75.0 [facility] Comment on above: Order Comment: Order Added by Discern Expert. Performed By: #### 2 152473, 0746170, 0263577, 4338109, 1940590, 39905894 #### [facility] [address] [place] [address] Neutrophils/Leukocytes Auto (Bld) [Pure # fraction] 4.6 E9/L Normal 2.0-7.5 [facility] Comment on above: Order Comment: Order Added by Discern Expert. Performed By: #### 2 437474, 2463377, 8631298, 0491846, 7722248, 70707015 #### [facility] [address] [place] [address] [facility] 04-15-2023 Creatinine [Mass/Vol] 0.7 mg/dL Normal 0.5-1.3 [facility] Comment on above: Performed By: #### 2 134378, 7739749, 9420670, 9801325, 9400285, 36550565 #### [facility] [address] [place] [address] Urea nitrogen [Mass/Vol] 8 mg/dL Normal 5-21 [facility] Comment on above: Performed By: #### 2 350826, 6166915, 3994795, 6804015, 9535809, [id number] #### [facility] [address] [place] [address] Urea nitrogen/Creatinine [Mass ratio] 11 No Units Normal 10-20 [facility] Comment on above: Performed By: #### 2 937256, 9075299, 8335024, 7016335, 0730093, 98796979 #### [facility] [address] [place] [address] Anion gap [Moles/Vol] 13 mmol/L Normal 6-16 [facility] Comment on above: Performed By: #### 2 592985, 0625648, 4202685, 5191249, 5532182, 11326324 #### [facility] [address] [place] [address] Calcium [Mass/Vol] 9.0 mg/dL Normal 8.9-11.1 [facility] Comment on above: Performed By: #### 2 529133, 9427338, 8316979, 2445379, 4005740, 30358594 #### [facility] [address] [place] [address] Chloride [Moles/Vol] 104 mmol/L Normal 101-[address] [facility] Comment on above: Performed By: #### 2 522006, 9488537, 4562218, 0662637, 1612456, 70253213 #### [facility] [address] [place] [address] CO2 [Moles/Vol] 21 mmol/L Normal 21-31 [facility] Comment on above: Performed By: #### 2 594305, 1877877, 8612027, 5427142, 4064079, 08802414 #### [facility] [address] [place] [address] Glucose [Mass/Vol] 88 mg/dL Normal 55-199 [facility] Comment on above: Result Comment: If t his glucose result represents a fasting glucose, interpretation should refer to the following reference range: 55-99 mg/dL Performed By: #### 2 869426, 3725202, 2663390, 8973858, 0954596, 80855830 #### [facility] [address] [place] [address] Potassium [Moles/Vol] 3.4 mmol/L Low 3.5-5.3 [facility] Comment on above: Performed By: #### 2 374190, 2996488, 3122384, 0776254, 1388050, 97798390 #### [facility] [address] [place] [address] Sodium [Moles/Vol] 135 mmol/L Normal 135-145 [facility] Comment on above: Performed By: #### 2 326134, 2371073, 3970577, 0338426, 6701096, 58208702 #### [facility] [address] [place] [address] CBC w/ Auto Diffon Erythrocyte distribution width (RBC) [Ratio] 15.0 % High 10.9-14.2 [facility] Comment on above: Performed By: #### 2 313080, 0542852, 2465481, 0752200, 8299145, 75464231 #### [facility] [address] [place] 0466257 Hematocrit (Bld) [Volume fraction] 34.6 % Normal 34.0-46.0 [facility] Comment on above: Performed By: #### 2 349512, 9493422, 8743373, 7974479, 1551169, 14058288 #### [facility] [address] [place] 0466257 Hemoglobin (Bld) [Mass/Vol] 11.3 g/dL Low 12.0-16.0 [facility] Comment on above: Performed By: #### 2 573500, 3348611, 0161040, 7077296, 3718585, 64783632 #### [facility] [address] [place] [address] MCH (RBC) [Entitic mass] 25.6 pg Low 27.0-34.0 [facility] Comment on above: Performed By: #### 2 945997, 1156351, 6150787, 4610367, 0414564, 16002790 #### [facility] [address] [place] [address] MCHC (RBC) [Mass/Vol] 32.6 g/dL Normal 31.4-36.0 [facility] Comment on above: Performed By: #### 2 805244, 2037228, 8016296, 0116279, 0934584, 32110545 #### [facility] [address] [place] [address] MCV (RBC) [Entitic vol] 78.6 fL Low 80.0-100.0 [facility] Comment on above: Performed By: #### 2 583814, 0691887, 7652551, 8468404, 3586868, 76033398 #### [facility] [address] [place] [address] Platelet mean volume (Bld) [Entitic vol] 8.1 fL Normal 6.4-10.8 [facility] Comment on above: Performed By: #### 2 219039, 5267593, 1457489, 5323421, 8695310, 49934906 #### [facility] [address] [place] [address] Platelets (Bld) [#/Vol] 243.0 E9/L Normal 150.0-500.0 [facility] Comment on above: Performed By: #### 2 353514, 5505493, 5857292, 4988134, 4296120, 91828972 #### [facility] [address] [place] [address] RBC (Bld) [#/Vol] 4.4 E12/L Normal 4.3-5.9 [facility] Comment on above: Performed By: #### 2 634301, 1541320, 3636037, 7881397, 1295945, 62454642 #### [facility] [address] [place], [place] [address] WBC corrected for nucl RBC Auto (Bld) [#/Vol] 6.6 E9/L Normal 4.0-11.0 [facility] Comment on above: Performed By: #### 2 208133, 9883842, 8306702, 9966728, 6730367, 19276474 #### [facility] [address] [place] [address] CHEMISTRYOrdered By: SYSTEM SYSTEM on 04-15-2023 Albumin [...] 13 mmol/L Normal 6 - 16 mEq/L [facility] AST [Catalytic activity/Vol] 17 [iU]/d Normal [...] 11. 1 mg/dL [facility] Chloride [Moles/Vol] 104 mmol/L Normal 101 - 1 11 mmol/L [facility] CO2 [Moles/Vol] 21 mmol/L Normal 21 - 31 mmol/L [facility] Creatinine [Mass/Vol] 0.7 mg/dL Normal 0.5 - 1.3 mg/dL [facility] GFR/1.73 sq M.predicted among non-blacks MDRD (S/P/Bld) [Vol rate/Area] 121 mL/min/1.73 m2 Normal >=59mL/min/1.7 3 m2 [facility] Chem S Globulin (S) [Mass/Vol] 4.0 g/dL [...] 7.7 g/dL Normal 6.0 - 7.8 gm/dL [facility] Sodium [Moles/Vol] 135 mmol/L Normal 135 - 145 mmol/L [facility] Remisol Urea nitrogen [Mass/Vol] 8 mg/dL Normal 5 - 21 mg/dL [facility] Remisol Urea nitrogen/Creatinine [Mass ratio] 11 mg/mg Normal 10 - 20 [facility] Remisol COAGULATIONOrdered By: Acosta Aguirre on 04-15-2023 aPTT Coag (PPP) [Time] 28.9 s Normal 25.1 - 36.5 second(s) [facility] Auto Coag INR Coag (PPP) [Relative time] 1.0 {INR} Invalid Interpretation Code [facility] Auto Coag PT Coag (PPP) [Time] 11.7 s Normal 9.4 - 1 2.5 second(s) [facility] Auto Coag Discharge Instructionson Discharge Instructions [id number]# 1.00CD:127 Normal [facility] ED Clinical Summaryon 2022 ED Clinical Summary [place] [id number] ED Clinical Summary Person Information Name: ROLA AGUILAR [facility] Age: 27 Years : 1995 Sex: Female Language: Honduran PCP: Kale RENDON MD Marital Status: Single Phone: [phone] Visit Id: Visit Reason: Abdominal pain - [...] 04/15/2023 01:12:27 04/15/2023 01:12:27 04/15/2023 01:12:27 ADDRESS: [address] [place] [address] [address] [place] [id number] [facility] DOC NOTES: MEDICAL INFORMATION: Prescriptions Given: Medications to Continue with No Changes Other Medications acetaminophen-hydroco done (Menasha 325 mg-5 mg oral tablet) 1 Tablets By Mouth every 6 hours as needed for pain. Refills: 0. acetaminophen-hydroco done (Menasha 325 mg-5 mg oral tablet) 1 Tablets By Mouth every 6 hours as needed for pain. Refills: 0. acetaminophen-oxycodo ne (Percocet 325 mg-5 mg Tab) 1 Tablets By Mouth every 6 hours as needed as needed for pain. Refills: 0. acetaminophen-oxycodo ne (Percocet 5 mg-325 mg oral tablet) 1 Tablets By Mouth every 6 hours. Refills: 0. acetaminophen-oxycodo ne (Percocet 5 mg-325 mg oral tablet) 1 Tablets By Mouth every 6 hours. Refills: 0. acetaminophen-oxycodo ne (Percocet 5 mg-325 mg oral tablet) 1 [...] Follow up: With: Address: When: Kale RENDON [address] [place], [place] [id number] Roll20 (1) In 3 days 04/18/2023 Comments: Make sure to follow-up with your GI as instructed. Return to the emergency room if your pain gets worse, vomiting, vaginal bleeding or any new symptoms. DIAGNOSIS: 1:Abdominal pain; 2:Exacerbation of Crohn's disease Normal [facility] ED Note-Physicianon 04-15-20 ED Note-Physician Basic Information [...] and Complexity of Problems Differential Diagnosis: [] [facility] Data External documents reviewed: [] My EKG [...] Kale RENDON (more content not included)... Normal [facility] Comment on above: Result Comment: Elec tronically Signed By: Carolyn Mcmahon M.D..reese\Date and Time Signed: 04/15/23 01:22 EDT ED [...] these instructions at home: Medicines ? Take fpbi-yok-ohbphvx and prescription medicines only as told by [...] your condition for any changes. ? Take mdod-dha-jvcztxs and prescription medicines only as told by [...] provider. Document Revised: 10/28/2020 Document Reviewed: 01/18/2020 [employer] Patient Education ? 2022 [employer]. Immunology Crohn's Disease Crohn's disease is a [...] sample tests. (more content not included)... Normal [facility] ED Patient Summaryon 023 ED Patient Summary [address] [address] Patient Discharge Instructions Person Information Name: ROLA AGUILAR Age: 27 Years Arrival Date: 04/14/2023 23:39:41 Discharge Diagnosis: 1:Abdominal pain; 2:Exacerbation of Crohn's disease Primary Care Physician: Kale RENDON MD Provider Information Primary Provider: Carolyn Mcmahon M.D. Advanced Implementation Lead:None The exam and treatment you received in the Emergency Department were for an urgent problem and are not intended as complete care. It is important that you follow up with a doctor, nurse practitioner, or physician?s back office medical assistant for ongoing care. If your symptoms become worse or you do not improve as expected and you are unable to reach your usual health care provider, you should return to the Emergency Department. We are available 24 hours a day. ROLA AGUILAR has been given the following list of patient education materials, prescriptions and follow-up instructions: Follow-up Instructions: With: Address: When: Kale RENDON [address] [place], [place] [id number] Business (1) In 3 days 04/18/2023 Comments: [...] opioids can be used to help relieve sggzyibw-sh-zqeiap pain and are often prescribed following a [...] guidance from the Food and Drug Administration (www.fda.gov/Drugs/Re sourcesForYou). ? Visit www.cdc.gov/drugoverd ose to learn a (more content not included)... Normal [facility] HEMATOLOGYOrdered By: SYSTEM SYSTEM on 04-15-2023 Basophils/100 WBC (Bld) 0.3 % Normal 0.0 - 2.0 % [facility] HemeAutoSS Basophils/Leukocytes Auto (Bld) [Pure # fraction] 0.0 E9/L Normal 0.0 - 0.2 E9/L [facility] HemeAutoSS Eosinophils/100 WBC (Bld) 1.9 % Normal 0.0 - 8.0 % [facility] HemeAutoSS Eosinophils/Leukocytes Auto (Bld) [Pure # fraction] 0.1 E9/L Normal 0.0 - 0.5 E9/L [facility] HemeAutoSS Lymphocytes/100 WBC (Bld) 20.5 % Normal 14.0 - 50.0 % [facility] HemeAutoSS Lymphocytes/Leukocytes Auto (Bld) [Pure # fraction] 1.4 E9/L Normal 1.0 - 4.0 E9/L [facility] HemeAutoSS Monocytes/100 WBC (Bld) 7.6 % Normal 4.0 - 14.0 % [facility] HemeAutoSS Monocytes/Leukocytes Auto (Bld) [Pure # fraction] 0.5 E9/L Normal 0.2 - 1.0 E9/L [facility] HemeAutoSS Neutrophils/100 WBC (Bld) 69.7 % Normal 36.0 - 75.0 % [facility] HemeAutoSS Neutrophils/Leukocytes Auto (Bld) [Pure # fraction] 4.6 E9/L [...] 78.6 fL Low 80.0 - 100.0 fL [facility]eAutoSS Platelet mean volume (Bld) [Entitic vol] 8.1 fL Normal 6.4 - 10.8 fL [facility]eAuto[facility] Platelets (Bld) [#/Vol] 243.0 E9/L Normal 150.0 - 500.0 E9/L [facility]eAuto[facility] RBC (Bld) [#/Vol] 4.4 E12/L Normal 4.3 - 5.9 E12/L [facility] HemeAutoSS WBC corrected for nucl RBC Auto (Bld) [#/Vol] 6.6 E9/L Normal 4.0 - 11.0 E9/L [facility] HemeAutoSS Hep Func Panelon 04-15-2023 Bilirubin.indirect [Mass or moles/Vol] UTC Abnormal 0.1-0.9 [facility] Comment on above: Result Comment: Resu lt verified by Discern Rule. Performed result UTC (Unable to Calculate) was sent as an Alpha code due the inability to calculate a valid numeric value. Performed By: #### 2 137485, 3103952, 0104056, 1271512, 8318446, 71745235 #### [facility] [address] [place] [address] Albumin [Mass/Vol] 3.7 g/dL Normal 3.3-5.0 [facility] Comment on above: Performed By: #### 2 662580, 1260305, 0279997, 3020788, 6702254, 15792944 #### [facility] [address] [place] [address] Albumin/Globulin (S) [Mass conc ratio] 0.9 Low 1.1-2.2 [facility] Comment on above: Performed By: #### 2 752717, 6829898, 4358642, 8855809, 1177698, 69864395 #### [facility] [address] [place] [address] ALP [Catalytic activity/Vol] 55 Int._Unit/L Normal 21-98 [facility] Comment on above: Performed By: #### 2 271320, 8643800, 9037550, 9696524, 1614039, 81861497 #### [facility] [address] [place] [address] ALT No additional P-5'-P [Catalytic activity/Vol] 17 Int._Unit/L Normal 6-46 [facility] Comment on above: Performed By: #### 2 399157, 6415150, 6377068, 3319695, 1162145, 97014256 #### [facility] [address] [place] [address] AST [Catalytic activity/Vol] 17 Int._Unit/L Normal 5-43 [facility] Comment on above: Performed By: #### 2 540395, 8313346, 6597140, 7763007, 8635881, 50850335 #### [facility] [address] [place] [address] Bilirubin [Mass/Vol] 0.5 mg/dL Normal 0.0-1.[address] [facility] Comment on above: Performed By: #### 2 631335, 7072968, 1389796, 5142051, 7849241, 48557892 #### [facility] [address] [place] [address] Globulin (S) [Mass/Vol] 4.0 g/dL Normal 1.4-4.0 [facility] Comment on above: Performed By: #### 2 585270, 4511355, 1173924, 4420645, 6552203, 83989480 #### [facility] [address] [place] [address] Protein [Mass/Vol] 7.7 g/dL Normal 6.0-7.8 [facility] Comment on above: Performed By: #### 2 922722, 2796244, 2858532, 5121148, 5375469, 87809234 #### [facility] [address] [place] [address] Bilirubin.direct [Mass/Vol] mg/dL Normal 0.1-0.4 [facility] Comment on above: Performed By: #### 2 182245, 7027465, 4327580, 4205353, 0466991, 70058811 #### [facility] [address] [place] [address] Lipase Levelon 04-15-2023 Lipase [Catalytic activity/Vol] 45 U/L Normal 13-58 [facility] Comment on above: Performed By: #### 2 125854, 9204106, 9606249, 1944220, 5119985, 69988536 #### [facility] [address] [place] [address] Magnesiumon 04-15-2023 Magnesium [Mass/Vol] 1.8 mg/dL Normal 1.3-2.[address] [facility] Comment on above: Performed By: #### 2 166131 ####[facility] [address] [place] [address] PT & PTTon 04-15-2023 aPTT Coag (PPP) [Time] 28.9 second(s) Normal 25.1-36.5 [facility] Comment on above: Result Comment: Para meter [...] the same coagulation reagent and instrumentation as [facility]. Currently there are no coagulation studies available worldwide for children to 14 days, and no normal ranges. Heparin therapeutic range (represented by Anti-Factor Xa activity of 0.2 - 0.4 U/mL) corresponds to PTT of 56.6 - 109.0 sec. Performed By: #### 2 570050, 5086911, 2865838, 5026585, 0080919, 59358078 #### [facility] [address] [place] [address] INR Coag (PPP) [Relative time] 1.0 {INR} Invalid Interpretation Code [facility] Comment on above: Result Comment: INR results are specifically intended to assess patients stabilized on long-term Anticoagulation therapy suggested INR?s ?Less Intensive Anticoagulation? 2.0 ? 3.0 Conventional Range 3.0 ? 4.5 Performed By: #### 2 387185, 0563788, 8342415, 8734735, 2078243, 48545030 #### [facility] [address] [place] [address] PT Coag (PPP) [Time] 11.7 second(s) Normal 9.4-12.5 [facility] Comment on above: Result Comment: 15 d [...] the same coagulation reagent and instrumentation as [facility]. Currently there are no coagulation studies available worldwide for children to 14 days, and no normal ranges. Performed By: #### 2 793592, 3254876, 8563812, 2763408, 3992694, 09420435 #### [facility] [address] [place] [address] UA With Cult Reflexon 2022 Bacteria LM Ql (Urine sed) TRACE Normal Trace [facility] Comment on above: Performed By: #### 1 1042326 #### [facility] [address] [place] [address] Bilirubin Ql (U) Negative Normal Negative [facility] Comment on above: Performed By: #### 1 6355683 #### [facility] [address] [place] [address] Clarity (U) CLEAR Normal Clear [facility] Comment on above: Performed By: #### 1 1932911 #### [facility] [address] [place] [address] Color (U) YELLOW Normal Yellow [facility] Comment on above: Performed By: #### 1 8907735 #### [facility] [address] [place] [address] Epithelial cells.squamous LM.HPF (Urine sed) [#/Area] 5-8 Normal 0-2 [facility] Comment on above: Performed By: #### 1 1054094 #### [facility] [address] [place] [address] Glucose Test strip (U) [Mass/Vol] Negative Normal Negative [facility] Comment on above: Performed By: #### 1 4411526 #### [facility] [address] [place] [address] Hemoglobin Ql (U) Negative Normal Negative [facility] Comment on above: Performed By: #### 1 1175306 #### [facility] [address] [place] [address] Ketones (U) [Mass/Vol] TRACE Invalid Interpretation Code Negative [facility] Comment on above: Performed By: #### 1 1405006 #### [facility] [address] [place] [address] [place].plasma/[place] .RBC (Bld) [Mass ratio] 0-3 Normal 0-3 [facility] Comment on above: Performed By: #### 1 1551671 #### [facility] [address] [place] [address] Mucus Ql (Urine sed) TRACE Normal Fish [facility] Comment on above: Performed By: #### 1 6156150 #### [facility] [address] [place] [address] Nitrite Ql (U) Negative Normal Negative [facility] Comment on above: Performed By: #### 1 8081186 #### [facility] [address] [place] [address] pH (U) 6.0 [pH] Invalid Interpretation Code 5.0-9.0 [facility] Comment on above: Performed By: #### 1 9718464 #### [facility] [address] [place] [address] Protein (U) [Mass/Vol] TRACE Abnormal Negative [facility] Comment on above: Performed By: #### 1 3422480 #### [facility] [address] [place] [address] Specific gravity (U) [Rel density] 1.025 Invalid Interpretation Code 1.005-1.030 [facility] Comment on above: Performed By: #### 1 4180773 #### [facility] [address] [place] [address] Type of Urine collection method Clean Catch Normal [facility] Comment on above: Performed By: #### 1 0388496 #### [facility] [address] [place] [address] Urobilinogen Qn (U) 0.2 {Keyla'U}/dL Normal 0.0-1.0 [facility] Comment on above: Performed By: #### 1 3788597 #### [facility] [address] [place] [address] WBC Auto Ql (U) TRACE Abnormal Negative [facility] Comment on above: Performed By: #### 1 3346375 #### [facility] [address] [place] [address] WBC LM.HPF (Urine sed) [#/Area] 0-5 Normal 0-5 [facility] Comment on above: Performed By: #### 1 4464930 #### [facility] [address] [place] [address] URINALYSISOrdered By: Acosta Aguirre on 04-15-2023 Bacteria LM Ql (Urine sed) Trace /HPF Normal Trace/HPF [facility] UA Auto SS Bilirubin Ql (U) Negative (7/24/23 12:21 AM) Normal Negative [facility] UA Auto SS Clarity (U) Clear (04/15/23 12:21 AM) Normal Clear [facility] UA Auto SS Color (U) Yellow (04/15/23 12:21 AM) Normal Yellow [facility] UA Auto SS Epithelial cells.squamous LM.HPF (Urine sed) [#/Area] 5-8 /HPF Normal 0-2/HPF [facility] UA Aut o SS Glucose Test strip (U) [Mass/Vol] Negative (04/15/23 12:21 AM) Normal Negative [facility] UA Auto SS Hemoglobin Ql (U) Negative (04/15/23 12:21 AM) Normal Negative [facility] UA Auto SS Ketones (U) [Mass/Vol] Trace *NA* (04/15/23 12:21 AM) Invalid Interpretation Code Negative [facility] UA Auto SS [place].plasma/[place] .RBC (Bld) [Mass ratio] 0-3 /HPF Normal 0-3/HPF [...] Desc Clean Catch (04/15/23 12:21 AM) Normal [facility] UA Auto SS Urobilinogen Qn (U) 0.0274979 {Keyla'U}/dL Normal 0.0 - 1.0 EU/dL [facility] UA Auto SS WBC Auto Ql (U) Trace *ABN* (04/15/23 12:21 AM) Invalid Interpretation Code Negative [facility] UA Auto SS WBC LM.HPF (Urine sed) [#/Area] 0-5 /HPF Normal 0-5/HPF [facility] UA Auto SS eGFRon 04-15-2023 GFR/1.73 sq M.predicted among non-blacks MDRD (S/P/Bld) [Vol rate/Area] 121 mL/min/1.73 m2 Normal >=59 [facility] Comment on above: Order Comment: Order added by Discern Expert. Result Comment: Ordering Machine Operator sammie kidney disease could be indicated at eGFR's of less than 60 mL/min/1.73m2. Kidney failure is indicated at less than 15 mL/min/1.73m2. Performed By: #### 2 412980, 7588264, 5716510, 3603530, 0899792, 34356802 #### [facility] [address] [place] [address] Consent for Treatmenton 03-24 Consent for Treatment [id number]#1 .00CD:127 Normal [facility] C Urineon 03-12-2023 Bacteria identified Cx Nom [...] Locations R1: This test was performed at: [facility], [address] [place] [address], [address] , , Normal [facility] Comment on above: Performed By: #### 2 475569, 5172075, 2182784, 4084229, 5966880, 39520636 #### [facility] [address] [place] [address] ED Note-Physicianon 03-12-20 ED Note-Physician Basic Information [...] to her GI doctor, worst at the [facility], and because of the pain she [...] and Complexity of Problems Differential Diagnosis: [] [facility] Data External documents reviewed: [] My EKG [...] her though, she needs to follow-up with [employer]. Patient was understanding. Discussed return precautions. She [...] hCG Quantitat (more content not included)... Normal [facility] Comment on above: Result Comment: Elec tronically Signed By: Wil Chandler PA-C\.br\Date and Time Signed: 03/10/23 22:46 EDT\.br\Electronically Co-Signed By: Elliot Macias DO\.br\Date and Time Co-Signed: 03/12/23 20:51 EDT\.br\Electronically Co-Signed By: Bernadette Francis PA-C\.br\Date and Time Co-Signed: 04/05/23 13:26 EDT Discharge Instructionson Discharge Instructions [id number]# 1.00CD:127 Normal [facility] US 1st Trimesteron 03-11-2023 US 1st Trimester [...] Comments Unknown History 1 Para 1 Normal [facility] US Transvaginalon 03-11-2023 US Transvaginal Exam Date/Time: 03/10/2023 21:17 EDT Reason for Exam: pelvic pain Report Please refer to the report of ultrasound of on 03/10/2023. Ordering Provider: Wil Chandler FINAL REPORT Dictated: 03/11/2023 7:25 am Magdi Garg M.D. Signed (Electronic Signature): 03/11/2023 7:25 am Signed by: Magdi Garg M.D. Transcribed by: CLARICE Technologist: YESSICA Normal [facility] Auto Diffon 03-10-2023 Basophils/100 WBC (Bld) 0.4 % Normal 0.0-2.0 [facility] Comment on above: Order Comment: Order Added by Discern Expert. Performed By: #### 2 919653, 4317060, 8448092, 4082483, 9843567, 14676193 #### [facility] [address] [place] [address] Basophils/Leukocytes Auto (Bld) [Pure # fraction] 0.0 E9/L Normal 0.0-0.2 [facility] Comment on above: Order Comment: Order Added by Discern Expert. Performed By: #### 2 103219, 3355571, 1432704, 0439482, 7042658, 93400765 #### [facility] [address] [place] [address] Eosinophils/100 WBC (Bld) 1.5 % Normal 0.0-8.0 [facility] Comment on above: Order Comment: Order Added by Discern Expert. Performed By: #### 2 103949, 1896245, 7988895, 4094312, 5803676, 05772253 #### [facility] [address] [place] [address] Eosinophils/Leukocytes Auto (Bld) [Pure # fraction] 0.1 E9/L Normal 0.0-0.5 [facility] Comment on above: Order Comment: Order Added by Discern Expert. Performed By: #### 2 722499, 1487566, 7158812, 8687673, 4706771, 53349290 #### [facility] [address] [place] [address] Lymphocytes/100 WBC (Bld) 42.5 % Normal 14.0-50.0 [facility] Comment on above: Order Comment: Order Added by Discern Expert. Performed By: #### 2 101155, 0312176, 5694768, 9795660, 2754173, 30229737 #### [facility] [address] [place] [address] Lymphocytes/Leukocytes Auto (Bld) [Pure # fraction] 2.1 E9/L Normal 1.0-4.0 [facility] Comment on above: Order Comment: Order Added by Discern Expert. Performed By: #### 2 331816, 7536867, 8337410, 5768885, 7430742, 69997904 #### [facility] [address] [place] [address] Monocytes/100 WBC (Bld) 8.6 % Normal 4.0-14.0 [facility] Comment on above: Order Comment: Order Added by Discern Expert. Performed By: #### 2 075768, 7838725, 2916814, 0669220, 4291936, 99531531 #### [facility] [address] [place] [address] 24139 Monocytes/Leukocytes Auto (Bld) [Pure # fraction] 0.4 E9/L Normal 0.2-1.0 [facility] Comment on above: Order Comment: Order Added by Esdras Expert. Performed By: #### 2 218956, 1494462, 1419047, 7300084, 2862551, 33793616 #### [facility] [address] [place] [address] 92890 Neutrophils/100 WBC (Bld) 47.0 % Normal 36.0-75.0 [facility] Comment on above: Order Comment: Order Added by Discern Expert. Performed By: #### 2 493731, 9353554, 7390593, 2312176, 0694499, 12460339 #### [facility] [address] [place] [address] 89989 Neutrophils/Leukocytes Auto (Bld) [Pure # fraction] 2.3 E9/L Normal 2.0-7.5 [facility] Comment on above: Order Comment: Order Added by Esdras Expert. Performed By: #### 2 507839, 9150795, 7761243, 8246048, 5175938, 44962721 #### [facility] [address] [place] [address] 56685 B hCG Qualon 03-10-2023 Beta hCG Ql Positive Normal [facility] Comment on above: Performed By: #### 2 682231, 7993234, 4342256, 5058731, 8288686, 08961122 #### [facility] [address] [place] [address] 08617 BMPon 03-10-2023 Creatinine [Mass/Vol] 0.6 mg/dL Normal 0.5-1.3 [facility] Comment on above: Performed By: #### 2 066060, 6444039, 4407146, 2151770, 2554397, 63077356 #### [facility] [address] [place] [address] Urea nitrogen [Mass/Vol] 9 mg/dL Normal 5-21 [facility] Comment on above: Performed By: #### 2 673913, 4036764, 4352221, 0076111, 6152224, 18763277 #### [facility] [address] [place] [address] Urea nitrogen/Creatinine [Mass ratio] 15 No Units Normal 10-20 [facility] Comment on above: Performed By: #### 2 984537, 4506972, 7225422, 7593264, 1397297, 97134576 #### [facility] [address] [place] [address] Anion gap [Moles/Vol] 9 mmol/L Normal 6-16 [facility] Comment on above: Performed By: #### 2 507382, 0709874, 7399575, 6767180, 5509839, 83314889 #### [facility] [address] [place] [address] Calcium [Mass/Vol] 8.7 mg/dL Low 8.9-11.1 [facility] Comment on above: Performed By: #### 2 012861, 3911376, 7939569, 3870305, 9886255, 49664640 #### [facility] [address] [place] [address] Chloride [Moles/Vol] 108 mmol/L Normal 101-[address] [facility] Comment on above: Performed By: #### 2 353064, 0520988, 2627270, 5399878, 5661151, 77907670 #### [facility] [address] [place] [address] CO2 [Moles/Vol] 21 mmol/L Normal 21-31 [facility] Comment on above: Performed By: #### 2 393918, 1515350, 1341980, 6306150, 4579523, 20709877 #### [facility] [address] [place] [address] Glucose [Mass/Vol] 97 mg/dL Normal 55-199 [facility] Comment on above: Result Comment: If t his glucose result represents a fasting glucose, interpretation should refer to the following reference range: 55-99 mg/dL Performed By: #### 2 665912, 6602135, 8565164, 9273928, 3879864, 03672050 #### [facility] [address] [place] [address] Potassium [Moles/Vol] 3.5 mmol/L Normal 3.5-5.3 [facility] Comment on above: Performed By: #### 2 004635, 2688240, 2292845, 0053639, 1720599, 02827950 #### [facility] [address] [place] [address] Sodium [Moles/Vol] 134 mmol/L Low 135-145 [facility] Comment on above: Performed By: #### 2 902589, 5678478, 9371778, 1731405, 6612311, 20397443 #### [facility] [address] [place] [address] BhCG Quanton 03-10-2023 [place] [address] m[IU]/mL High 1-3 F [facility] Comment on above: Result Comment: GEST ATIONAL AGE HCG RANGE (mIU/mL) NON- <1-3 0.2-1 WEEKS 5-50 1-2 WEEKS 50-500 2-3 WEEKS 100-5,000 3-4 WEEKS 500-10,000 4-5 WEEKS 1,000-50,000 5-6 WEEKS 10,000-100,000 6-8 WEEKS 15,000-200,000 8-12 WEEKS 10,000-100,000 Performed By: #### 2 791346, 4604110, 1804723, 7075842, 6943557, 40581213 #### [facility] [address] [place] [address] 24653 CBC w/ Auto Diffon 3 Erythrocyte distribution width (RBC) [Ratio] 15.9 % High 10.9-14.2 [facility] Comment on above: Performed By: #### 2 221966, 8694158, 0801675, 8592308, 1388800, 21003903 #### [facility] [address] [address]66[address] Hematocrit (Bld) [Volume fraction] 34.6 % Normal 34.0-46.0 [facility] Comment on above: Performed By: #### 2 760554, 2439698, 8563347, 0506302, 9390658, 42493836 #### [facility] [address] [place], [place] [address] Hemoglobin (Bld) [Mass/Vol] 11.2 g/dL Low 12.0-16.0 [facility] Comment on above: Performed By: #### 2 252521, 1385377, 4447021, 5810213, 3339152, 83806645 #### [facility] [address] [place] [address] 59287 MCH (RBC) [Entitic mass] 25.6 pg Low 27.0-34.0 [facility] Comment on above: Performed By: #### 2 025941, 5455639, 4734209, 3266480, 7707044, 16303354 #### [facility] [address] [place] [address] 25074 MCHC (RBC) [Mass/Vol] 32.4 g/dL Normal 31.4-36.0 [facility] Comment on above: Performed By: #### 2 989310, 4262918, 9056672, 4329657, 4523343, 74143822 #### [facility] [address] [place] [address] 89461 MCV (RBC) [Entitic vol] 78.8 fL Low 80.0-100.0 [facility] Comment on above: Performed By: #### 2 371228, 9140999, 3679707, 2955892, 7067558, 23595292 #### [facility] [address] [place] [address] Platelet mean volume (Bld) [Entitic vol] 7.9 fL Normal 6.4-10.8 [facility] Comment on above: Performed By: #### 2 796754, 6699047, 3082738, 7334043, 2463999, 57446669 #### [facility] [address] [place] [address] Platelets (Bld) [#/Vol] 245.0 E9/L Normal 150.0-500.0 [facility] Comment on above: Performed By: #### 2 325564, 3152366, 5305658, 1725519, 3988225, 81755559 #### [facility] [address] [place] [address] 20183 RBC (Bld) [#/Vol] 4.4 E12/L Normal 4.3-5.9 [facility] Comment on above: Performed By: #### 2 518338, 0361764, 3948881, 3193141, 5459007, 77880101 #### [facility] [address] [place] [address] 63204 WBC corrected for nucl RBC Auto (Bld) [#/Vol] 4.9 E9/L Normal 4.0-11.0 [facility] Comment on above: Performed By: #### 2 714607, 6645103, 7874264, 6027329, 0076366, 03613183 #### [facility] [address] [place] [address] CHEMISTRYOrdered By: SYSTEM SYSTEM on 03-10-2023 Albumin [...] 9 mmol/L Normal 6 - 16 mEq/L [facility] AST [Catalytic activity/Vol] 24 [iU]/d Normal 5 - 43 Int._Unit/L [facility] Bilirubin [Mass/Vol] 0.5 mg/dL Normal 0.0 - 1 .1 mg/dL [facility] Bilirubin.direct [Mass/Vol] 0.1 mg/dL Normal 0.1 - 0.4 mg/dL [facility] Bilirubin.indirect [Mass or moles/Vol] 0.4 mg/dL Normal 0.1 - 0.9 mg/dL [facility] Calcium [Mass/Vol] 8.7 mg/dL Low 8.9 - 11. 1 mg/dL [facility] Chloride [Moles/Vol] 108 mmol/L Normal 101 - 1 11 mmol/L [facility] CO2 [Moles/Vol] 21 mmol/L Normal 21 - 31 mmol/L [facility] Creatinine [Mass/Vol] 0.6 mg/dL Normal 0.5 - 1.3 mg/dL [facility] GFR/1.73 sq M.predicted among non-blacks MDRD (S/P/Bld) [Vol rate/Area] 126 mL/min/1.73 m2 Normal >=59mL/min/1.7 3 m2 FT Chem S Globulin (S) [Mass/Vol] 4.1 g/dL High 1.4 - 4.0 gm/dL [facility] Glucose [Mass/Vol] 97 mg/dL Normal 55 - 199 mg/dL [place] [address] m[IU]/mL High 1 - 3 mIU/mL [facility] Lipase [Catalytic activity/Vol] 59 U/L High 13 - 58 unit/L [facility] Potassium [Moles/Vol] 3.5 mmol/L Normal 3.5 - 5.3 mmol/L [facility] Protein [Mass/Vol] 8.0 g/dL High 6.0 - 7.8 gm/dL [facility] Sodium [Moles/Vol] 134 mmol/L Low 135 - 145 mmol/L [facility] Remisol Urea nitrogen [Mass/Vol] 9 mg/dL Normal 5 - 21 mg/dL [facility] Remisol Urea nitrogen/Creatinine [Mass ratio] 15 mg/mg Normal 10 - 20 [facility] Consent for Treatmenton 02-21 Consent for Treatment [id number] Normal [facility] ED Clinical Summaryon 2022 ED Clinical Summary [address] [address] ED Clinical Summary Person Information Name: ROLA AGUILAR Ed Elena/[facility] Age: 27 Years : 1995 Sex: Female Language: Honduran PCP: NONE, XXXX Marital Status: Single Phone: [phone] Visit Id: Visit Reason: Abdominal pain; ABD [...] 03/10/2023 21:34:08 03/10/2023 21:34:08 03/10/2023 21:34:08 ADDRESS: [address] [place] [address] [address] [place] [id number] PHYS DOC NOTES: MEDICAL INFORMATION: Prescriptions Given: Medications to Continue with No Changes Other Medications acetaminophen-hydroco done (Menasha 325 mg-5 mg oral tablet) 1 Tablets By Mouth every 6 hours as needed for pain. Refills: 0. acetaminophen-hydroco done (Menasha 325 mg-5 mg oral tablet) 1 Tablets By Mouth every 6 hours as needed for pain. Refills: 0. acetaminophen-oxycodo ne (Percocet 325 mg-5 mg Tab) 1 Tablets By Mouth every 6 hours as needed as needed for pain. Refills: 0. acetaminophen-oxycodo ne (Percocet 5 mg-325 mg oral tablet) 1 Tablets By Mouth every 6 hours. Refills: 0. acetaminophen-oxycodo ne (Percocet 5 mg-325 mg oral tablet) 1 Tablets By Mouth every 6 hours. Refills: 0. acetaminophen-oxycodo ne (Percocet 5 mg-325 mg oral tablet) 1 [...] EDUCATION INFORMATION: Instructions: First Trimester of , Nbyo-jp-Nksb; Crohn's Disease; Abdominal Pain, Adult, Fmbs-gf-Qdbo Follow up: With: Address: When: Anoop Lopez [address] [place], [place] [id number] Roll20 (1) In 3 days 03/13/2023 Comments: Follow-up with Dr. Lopez for further evaluation of your . With: Address: When: Vanessa Carver [address] [place] [address] Roll20 (1) In 3 days 03/13/2023 Co (more content not included)... Normal [facility] ED Patient Education Noteon 03-10-2023 ED Patient [...] these instructions at home: Medicines ? Take boga-dmf-ccjgqrt and prescription medicines only as told by [...] belly pain for any changes. ? Take ycly-hhs-lqazopz and prescription medicines only as told by [...] provider. Document Revised: 01/18/2020 Document Reviewed: 01/18/2020 [employer] Patient Education ? 2022 [employer]. Immunology Crohn's Disease Crohn's disease is a [...] to w (more content not included)... Normal [facility] ED Patient Summaryon 023 ED Patient Summary [address] [address] Patient Discharge Instructions Person Information Name: ROLA AGUILAR Age: 27 Years Arrival Date: 03/10/2023 17:22:42 Discharge Diagnosis: Hx of Crohn's disease; Lower abdominal pain; Primary Care Physician: NONE, XXXX Provider Information Primary Provider: Elliot Macias DO Advanced Implementation Lead:Kelly The exam and treatment you received in the Emergency Department were for an urgent problem and are not intended as complete care. It is important that you follow up with a doctor, nurse practitioner, or physician?s back office medical assistant for ongoing care. If your symptoms become worse or you do not improve as expected and you are unable to reach your usual health care provider, you should return to the Emergency Department. We are available 24 hours a day. ROLA AGUILAR has been given the following list of patient education materials, prescriptions and follow-up instructions: Follow-up Instructions: With: Address: When: Anoop Lopez [address] [place] [address] Roll20 (1) In 3 days 03/13/2023 Comments: Follow-up with Dr. Lopez for further evaluation of your . With: Address: When: Vanessa Carver [address] [place] [address] Roll20 (1) In 3 days 03/13/2023 Comments: Follow-up [...] Patient Education Materials: First Trimester of , Ziws-ao-Yxho; Crohn's Disease; Abdominal Pain, Adult, Khwl-rc-Reon A MESSAGE TO ALL PATIENTS REGARDING OPIOIDS PRESCRIPTION OPIOIDS: WHAT YOU NEED TO KNOW Prescription opioids can be used to help relieve dtzdpbeb-wo-rxaehc pain and are often prescribed following a [...] unused p (more content not included)... Normal [facility] HEMATOLOGYOrdered By: SYSTEM SYSTEM on 03-10-2023 Basophils/100 WBC (Bld) 0.4 % Normal 0.0 - 2.0 % [facility]eAutoSS Basophils/Leukocytes Auto (Bld) [Pure # fraction] 0.0 E9/L Normal 0.0 - 0.2 E9/L [facility]Auto[facility] Eosinophils/100 WBC (Bld) 1.5 % Normal 0.0 - 8.0 % [facility]Auto[facility] Eosinophils/Leukocytes Auto (Bld) [Pure # fraction] 0.1 E9/L Normal 0.0 - 0.5 E9/L [facility] Lymphocytes/100 WBC (Bld) 42.5 % Normal 14.0 - 50.0 % [facility] Lymphocytes/Leukocytes Auto (Bld) [Pure # fraction] 2.1 E9/L Normal 1.0 - 4.0 E9/L [facility] Monocytes/100 WBC (Bld) 8.6 % Normal 4.0 - 14.0 % [facility] Monocytes/Leukocytes Auto (Bld) [Pure # fraction] 0.4 E9/L Normal 0.2 - 1.0 E9/L [facility] Neutrophils/100 WBC (Bld) 47.0 % Normal 36.0 - 75.0 % [facility] Neutrophils/Leukocytes Auto (Bld) [Pure # fraction] 2.3 E9/L [...] 25.6 pg Low 27.0 - 34.0 pg [facility] HemeAutoSS MCHC (RBC) [Mass/Vol] 32.4 g/dL Normal 31.4 - 36.0 gm/dL [facility]eAuto[facility] MCV (RBC) [Entitic vol] 78.8 fL Low 80.0 - 100.0 fL [facility] Platelet mean volume (Bld) [Entitic vol] 7.9 fL Normal 6.4 - 10.8 fL [facility] Platelets (Bld) [#/Vol] 245.0 E9/L Normal 150.0 - 500.0 E9/L [facility] RBC (Bld) [#/Vol] 4.4 E12/L Normal 4.3 - 5.9 E12/L [facility] WBC corrected for nucl RBC Auto (Bld) [#/Vol] 4.9 E9/L Normal 4.0 - 11.0 E9/L [facility] HemeAutoSS Hep Func Panelon 03-10-2023 Albumin [Mass/Vol] 3.9 g/dL Normal 3.3-5.0 [facility] Comment on above: Performed By: #### 2 559745, 0496778, 2350622, 5263764, 4088884, 01145425 #### [facility] [address] [place] [address] Albumin/Globulin (S) [Mass conc ratio] 1.0 Low 1.1-2.2 [facility] Comment on above: Performed By: #### 2 124253, 8232945, 4452476, 6340962, 4844744, 72099818 #### [facility] [address] [place] [address] ALP [Catalytic activity/Vol] 66 Int._Unit/L Normal 21-98 [facility] Comment on above: Performed By: #### 2 435708, 5787990, 7049499, 6259778, 5956975, 91035860 #### [facility] [address] [place] [address] ALT No additional P-5'-P [Catalytic activity/Vol] 26 Int._Unit/L Normal 6-46 [facility] Comment on above: Performed By: #### 2 561181, 7046645, 5805540, 9976022, 2211941, 04512880 #### [facility] [address] [place] [address] AST [Catalytic activity/Vol] 24 Int._Unit/L Normal 5-43 [facility] Comment on above: Performed By: #### 2 000458, 4832360, 1666561, 9762256, 7837152, 66702482 #### [facility] [address] [place] [address] Bilirubin [Mass/Vol] 0.5 mg/dL Normal 0.0-1.[address] [facility] Comment on above: Performed By: #### 2 866630, 6112384, 8575858, 9991668, 5902084, 43986912 #### [facility] [address] [place] [address] Bilirubin.direct [Mass/Vol] 0.1 mg/dL Normal 0.1-0.4 [facility] Comment on above: Performed By: #### 2 221447, 4895931, 6660979, 8389786, 9557577, 97047520 #### [facility] [address] [place] [address]32 Bilirubin.indirect [Mass or moles/Vol] 0.4 mg/dL Normal 0.1-0.9 [facility] Comment on above: Performed By: #### 2 694898, 1338255, 4191068, 0889062, 7712275, 14856291 #### [facility] [address] [place] [address] Globulin (S) [Mass/Vol] 4.1 g/dL High 1.4-4.0 [facility] Comment on above: Performed By: #### 2 608906, 8534111, 0148393, 8971552, 7621236, 37778947 #### [facility] [address] [place] [address] Protein [Mass/Vol] 8.0 g/dL High 6.0-7.8 [facility] Comment on above: Performed By: #### 2 996226, 9763480, 5806425, 0015412, 1555067, 41799620 #### [facility] [address] [place] [address] Lipase Levelon 03-10-2023 Lipase [Catalytic activity/Vol] 59 U/L High 13-58 [facility] Comment on above: Performed By: #### 2 321936, 4654094, 7641198, 2915134, 6412198, 81778233 #### [facility] [address] [place] [address] SEROLOGYOrdered By: Rakel meadows on 03-10-2023 Beta hCG Ql Positive (03/10/23 5:40 PM) Normal [facility] Man Sero UA With Cult Reflexon 2022 Bacteria LM Ql (Urine sed) 1+ /HPF Abnormal Trace [facility] Comment on above: Performed By: #### 2 942461, 8823497, 1045242, 7839363, 9789911, 78412902 #### [facility] [address] [place] [address] Crystals LM Ql (Urine sed) Present Normal [facility] Comment on above: Performed By: #### 2 854388, 8998554, 1042386, 1099640, 4008782, 17317692 #### [facility] [address] [place] [address] Epithelial cells.squamous LM.HPF (Urine sed) [#/Area] 5-8 Normal 0-2 [facility] Comment on above: Performed By: #### 2 579546, 6707693, 4995169, 9696996, 1977139, 50355593 #### [facility] [address] [place] [address] [place].plasma/[place] .RBC (Bld) [Mass ratio] 4-20 Normal 0-3 [facility] Comment on above: Performed By: #### 2 174603, 3883205, 2375450, 3669961, 9724761, 93412915 #### [facility] [address] [place] [address] Mucus Ql (Urine sed) TRACE Normal Fish [facility] Comment on above: Performed By: #### 2 885059, 4991003, 0788072, 3878241, 7690622, 46111357 #### [facility] [address] [place] [address] WBC LM.HPF (Urine sed) [#/Area] 6-15 Abnormal 0-5 [facility] Comment on above: Performed By: #### 2 538246, 5015465, 6123678, 6031037, 3241906, 81770006 #### [facility] [address] [place] [address] Bilirubin Ql (U) Negative Normal Negative [facility] Comment on above: Performed By: #### 2 687935, 7103746, 0199802, 5373214, 0680197, 80592356 #### [facility] [address] [place] [address] Clarity (U) SL CLOUDY Abnormal Clear [facility] Comment on above: Performed By: #### 2 162157, 1722753, 9708573, 5775402, 1331201, 48769118 #### [facility] [address] [place] [address] Color (U) YELLOW Normal Yellow [facility] Comment on above: Performed By: #### 2 184303, 2651492, 1213511, 1989833, 3307217, 02239701 #### [facility] [address] [place] [address] Glucose Test strip (U) [Mass/Vol] Negative Normal Negative [facility] Comment on above: Performed By: #### 2 749017, 8383593, 9382089, 8827801, 1173239, 68179058 #### [facility] [address] [place] [address] Hemoglobin Ql (U) Negative Normal Negative [facility] Comment on above: Performed By: #### 2 232066, 1318274, 3370066, 6421558, 2055659, 84820045 #### [facility] [address] [place] [address] Ketones (U) [Mass/Vol] Negative Normal Negative [facility] Comment on above: Performed By: #### 2 582105, 7929721, 0714371, 0813796, 9269902, 84054524 #### [facility] [address] [place] [address] Nitrite Ql (U) Negative Normal Negative [facility] Comment on above: Performed By: #### 2 567879, 6501208, 2803233, 2687937, 1543027, 88331613 #### [facility] [address] [place] [address] pH (U) 6.0 [pH] Invalid Interpretation Code 5.0-9.0 [facility] Comment on above: Performed By: #### 2 914124, 1408878, 8783006, 4878847, 2468875, 19120390 #### [facility] [address] [place] [address] Protein (U) [Mass/Vol] Negative Normal Negative [facility] Comment on above: Performed By: #### 2 760184, 3104548, 6091992, 2828350, 8222199, 11581973 #### [facility] [address] [place] [address] Specific gravity (U) [Rel density] 1.020 Invalid Interpretation Code 1.005-1.030 [facility] Comment on above: Performed By: #### 2 408941, 1700527, 0751399, 1636073, 7147997, 13451836 #### [facility] [address] [place] [address] Type of Urine collection method Clean Catch Normal [facility] Comment on above: Performed By: #### 2 502398, 6510118, 1424951, 0839218, 8978635, 79004499 #### [facility] [address] [place] [address] Urobilinogen Qn (U) 0.2 {Keyla'U}/dL Normal 0.0-1.0 [facility] Comment on above: Performed By: #### 2 518495, 9978134, 8491445, 1932748, 2717004, 84137522 #### [facility] [address] [place] [address] WBC Auto Ql (U) 2+ Abnormal Negative [facility] Comment on above: Performed By: #### 2 161346, 1047738, 6749178, 9152595, 2938847, 11801289 #### [facility] [address] [place] [address] URINALYSISOrdered By: Rakel Garrison on 03-10-2023 Bacteria [...] [#/Area] 5-8 /HPF Normal 0-2/HPF [facility] UA Aut o SS Glucose Test strip (U) [Mass/Vol] Negative (03/10/23 7:36 PM) Normal Negative [facility] UA Auto SS Hemoglobin Ql (U) Negative (03/10/23 7:36 PM) Normal Negative [facility] UA Auto SS Ketones (U) [Mass/Vol] Negative (03/10/23 7:36 PM) Normal Negative [facility] UA Auto SS [place].plasma/[place] .RBC (Bld) [Mass ratio] 4-20 /HPF Normal 0-3/HPF [...] Desc Clean Catch (03/10/23 7:36 PM) Normal [facility] UA Auto SS Urobilinogen Qn (U) 0.1855285 {Keyla'U}/dL Normal 0.0 - 1.0 EU/dL [facility] UA Auto SS WBC Auto Ql (U) 2+ *ABN* (03/10/23 7:36 PM) Invalid Interpretation Code Negative [facility] UA Auto SS WBC LM.HPF (Urine sed) [#/Area] 6-15 /HPF Invalid Interpretation Code 0-5/HPF [facility] UA Auto SS eGFRon 03-10-2023 GFR/1.73 sq M.predicted among non-blacks MDRD (S/P/Bld) [Vol rate/Area] 126 mL/min/1.73 m2 Normal >=59 [facility] Comment on above: Order Comment: Order Added by Discern Expert. Result Comment: Ordering Machine Operator sammie kidney disease could be indicated at eGFR's of less than 60 mL/min/1.73m2. Kidney failure is indicated at less than 15 mL/min/1.73m2. Performed By: #### 2 920730, 7806774, 4611104, 7187360, 8251522, 74990333 #### [facility] [address] [place] [address] CHEMISTRYOrdered By: SYSTEM SYSTEM on 01-25-2023 Albumin [...] 13 mmol/L Normal 6 - 16 mEq/L [facility] AST [Catalytic activity/Vol] 22 [iU]/d Normal [...] 71 mL/min/1.73 m2 Normal >=59mL/min/1.7 3 m2 [facility] Chem S Globulin (S) [Mass/Vol] 3.9 g/dL [...] 10 - 20 [facility] HEMATOLOGYOrdered By: [email or web address] SYSTEM on 01-25-2023 Basophils/100 WBC (Bld) 0.3 % Normal 0.0 - 2.0 % [facility]eAuto[facility] Basophils/Leukocytes Auto (Bld) [Pure # fraction] 0.0 E9/L Normal 0.0 - 0.2 E9/L [facility] Eosinophils/100 WBC (Bld) 1.9 % Normal 0.0 - 8.0 % [facility] Eosinophils/Leukocytes Auto (Bld) [Pure # fraction] 0.3 E9/L Normal 0.0 - 0.5 E9/L [facility] Lymphocytes/100 WBC (Bld) 11.5 % Low 14.0 - 50.0 % [facility] Lymphocytes/Leukocytes Auto (Bld) [Pure # fraction] 1.6 E9/L Normal 1.0 - 4.0 E9/L [facility] Monocytes/100 WBC (Bld) 7.8 % Normal 4.0 - 14.0 % [facility] Monocytes/Leukocytes Auto (Bld) [Pure # fraction] 1.1 E9/L High 0.2 - 1.0 E9/L [facility] Neutrophils/100 WBC (Bld) 78.5 % High 36.0 - 75.0 % [facility] Neutrophils/Leukocytes Auto (Bld) [Pure # fraction] 11.1 E9/L [...] hCG Ql Negative (01/25/23 9:28 PM) Normal [facility] Man Sero URINALYSISOrdered By: Abelino Thapa on [...] sed) [#/Area] /[HPF] Normal 0-2/HPF [facility] UA Aut o SS Glucose Test strip (U) [Mass/Vol] Negative (01/25/23 9:28 PM) Normal Negative [facility] UA Auto SS Hemoglobin Ql (U) Trace *ABN* (01/25/23 9:28 PM) Invalid Interpretation Code Negative [facility] UA Auto SS Ketones (U) [Mass/Vol] Negative (01/25/23 9:28 PM) Normal Negative [facility] UA Auto SS [place].plasma/[place] .RBC (Bld) [Mass ratio] 0-3 /HPF Normal 0-3/HPF [...] [facility] UA Auto SS Urobilinogen Qn (U) 0.6869905 {Keyla'U}/dL Normal 0.0 - 1.0 EU/dL [facility] [...] 13 mmol/L Normal 6 - 16 mEq/L [facility] AST [Catalytic activity/Vol] 16 [iU]/d Normal 5 - 43 Int._Unit/L [facility] Bilirubin [Mass/Vol] 0.5 mg/dL Normal 0.0 - 1 .1 mg/dL [facility] Bilirubin.direct [Mass/Vol] mg/dL Normal 0.1 - 0.4 mg/dL [facility] Bilirubin.indirect [Mass or moles/Vol] Unable to Calculate mg/dL Invalid Interpretation Code 0.1 - 0.9 mg/dL [facility] Calcium [Mass/Vol] 8.8 mg/dL Low 8.9 - 11. 1 mg/dL [facility] Chloride [Moles/Vol] 102 mmol/L Normal 101 - 1 11 mmol/L [facility] CO2 [Moles/Vol] 25 mmol/L Normal 21 - 31 mmol/L [facility] Creatinine [Mass/Vol] 0.7 mg/dL Normal 0.5 - 1.3 mg/dL [facility] GFR/1.73 sq M.predicted among blacks MDRD (S/P/Bld) [Vol rate/Area] mL/min/1.73 m2 Normal >=59mL/min/1.7 3 m2 [facility] Chem S GFR/1.73 sq M.predicted among non-blacks MDRD (S/P/Bld) [Vol rate/Area] mL/min/1.73 m2 Normal >=59mL/min/1.7 3 m2 [facility] Chem S Globulin (S) [Mass/Vol] 4.2 g/dL High 1.4 - 4.0 gm/dL [facility] Glucose [Mass/Vol] 90 mg/dL Normal 55 - 199 mg/dL [facility] Lipase [Catalytic activity/Vol] 41 U/L Normal 13 - 58 unit/L [facility] Potassium [Moles/Vol] 3.7 mmol/L Normal 3.5 - 5.3 mmol/L [facility] Protein [Mass/Vol] 7.6 g/dL Normal 6.0 - 7.8 gm/dL [facility] Sodium [Moles/Vol] 136 mmol/L Normal 135 - 145 mmol/L [facility] Urea nitrogen [Mass/Vol] 7 mg/dL Normal 5 - 21 mg/dL [facility] Urea nitrogen/Creatinine [Mass ratio] 10 mg/mg [...] Normal 0.0 - 8.0 % [facility]eAutoSS Eosinophils/Leukocytes Auto (Bld) [Pure # fraction] 0.3 E9/L Normal 0.0 - 0.5 E9/L [facility] Lymphocytes/100 WBC (Bld) 12.4 % Low 14.0 - 50.0 % [facility]eAutoSS Lymphocytes/Leukocytes Auto (Bld) [Pure # fraction] 1.0 E9/L Normal 1.0 - 4.0 E9/L [facility] Monocytes/100 WBC (Bld) 6.6 % Normal 4.0 - 14.0 % [facility]eAutoSS Monocytes/Leukocytes Auto (Bld) [Pure # fraction] 0.5 E9/L Normal 0.2 - 1.0 E9/L [facility] Neutrophils/100 WBC (Bld) 77.5 % High 36.0 - 75.0 % [facility]eAuto[facility] Neutrophils/Leukocytes Auto (Bld) [Pure # fraction] 6.1 E9/L [...] 01-13-2023 HCG.beta subunit (U) [Moles/Vol] Negative Normal [facility] Man Sero URINALYSISOrdered By: Makayla Flynn on [...] sed) [#/Area] /[HPF] Normal 0-2/HPF [facility] UA Aut o SS Glucose Test strip (U) [Mass/Vol] Negative (01/13/23 3:23 PM) Normal Negative [facility] UA Auto SS Hemoglobin Ql (U) Negative (01/13/23 3:23 PM) Normal Negative [facility] UA Auto SS Ketones (U) [Mass/Vol] Negative (01/13/23 3:23 PM) Normal Negative [facility] UA Auto SS [place].plasma/[place] .RBC (Bld) [Mass ratio] 0-3 /HPF Normal 0-3/HPF [...] [facility] UA Auto SS Urobilinogen Qn (U) [id number] {Keyla'U}/dL Normal 0.0 - 1.0 EU/dL [facility] [...] 14 mmol/L Normal 6 - 16 mEq/L [facility] AST [Catalytic activity/Vol] 22 [iU]/d Normal 5 - 43 Int._Unit/L [facility] Bilirubin [Mass/Vol] 0.6 mg/dL Normal 0.0 - 1 .1 mg/dL [facility] Bilirubin.direct [Mass/Vol] 0.2 mg/dL Normal 0.1 - 0.4 mg/dL [facility] Bilirubin.indirect [Mass or moles/Vol] 0.4 mg/dL Normal 0.1 - 0.9 mg/dL [facility] Calcium [Mass/Vol] 9.1 mg/dL Normal 8.9 - 11. 1 mg/dL [facility] Chloride [Moles/Vol] 99 mmol/L Low 101 [...] rate/Area] mL/min/1.73 m2 Normal >=59mL/min/1.7 3 m2 [facility] Chem S Globulin (S) [Mass/Vol] 4.3 g/dL [...] 3.1 % Normal 0.0 - 8.0 % [facility]eAutoSS Eosinophils/Leukocytes Auto (Bld) [Pure # fraction] 0.3 E9/L Normal 0.0 - 0.5 E9/L [facility] Lymphocytes/100 WBC (Bld) 13.7 % Low 14.0 - 50.0 % [facility]eAutoSS Lymphocytes/Leukocytes Auto (Bld) [Pure # fraction] 1.2 E9/L Normal 1.0 - 4.0 E9/L [facility] Monocytes/100 WBC (Bld) 8.9 % Normal 4.0 - 14.0 % [facility]eAutoSS Monocytes/Leukocytes Auto (Bld) [Pure # fraction] 0.8 E9/L Normal 0.2 - 1.0 E9/L [facility] Neutrophils/100 WBC (Bld) 74.0 % Normal 36.0 - 75.0 % [facility] Neutrophils/Leukocytes Auto (Bld) [Pure # fraction] 6.5 E9/L [...] 8.7 E9/L Normal 4.0 - 11.0 E9/L [facility] SEROLOGYOrdered By: Angelika Hernandez on 01-09-2023 Beta hCG Ql Negative (01/09/23 1:22 PM) Normal [facility] Man Sero URINALYSISOrdered By: Chaz Manley on [...] [#/Area] 5-8 /HPF Normal 0-2/HPF [facility] UA Aut o SS Glucose Test strip (U) [Mass/Vol] Negative (01/09/23 3:03 PM) Normal Negative [facility] UA Auto SS Hemoglobin Ql (U) Negative (01/09/23 3:03 PM) Normal Negative [facility] UA Auto SS Ketones (U) [Mass/Vol] Negative (01/09/23 3:03 PM) Normal Negative [facility] UA Auto SS [place].plasma/[place] .RBC (Bld) [Mass ratio] 0-3 /HPF Normal 0-3/HPF [...] [facility] UA Auto SS Urobilinogen Qn (U) [id number] {Keyla'U}/dL Normal 0.0 - 1.0 EU/dL [facility] UA Auto SS WBC Auto Ql (U) Trace *ABN* (01/09/23 3:03 PM) Invalid Interpretation Code Negative [facility] UA Auto SS WBC LM.HPF (Urine sed) [#/Area] 0-5 /HPF Normal 0-5/HPF [facility] UA Auto SS CBC with Auto Differentialon 12-24-2022 Absolute Eos # 0.20 [facility] Absolute Lymph # 0.70 Low [place] [facility] Absolute Colbert # 0.40 [facility] Basophils (Bld) [#/Vol] 0.00 10*3/uL [facility] Basophils/100 WBC (Bld) 0 % 0 - 2 % [facility] Differential Type YES [facility] Eosinophils/100 WBC (Bld) 2 % 0 - 5 % [facility] Hematocrit (Bld) [Volume fraction] 36.2 % 36 - 46 % [facility] Hemoglobin (Bld) [Mass/Vol] 11.9 g/dL Low 12.0 - 16.0 g/dL [facility] Interpretation and review of laboratory results Abnormal [facility] Lymphocytes/100 WBC (Bld) 9 % Low 15 - 40 % [facility] MCH (RBC) [Entitic mass] 26.5 pg 26 - 34 pg [facility] MCHC (RBC) [Mass/Vol] 32.9 g/dL 31 - 37 g/dL B [facility] MCV (RBC) [Entitic vol] 80.6 fL 80 - 100 fL [facility] Monocytes/100 WBC (Bld) 5 % 4 - 8 % [facility] Platelet distribution width (Bld) [Ratio] 15.3 % High 12.1 - 15.2 % [facility] Platelets (Bld) [#/Vol] 339 10*3/uL [facility] RBC (Bld) [#/Vol] 4.49 10*6/uL 4.0 - 5.2 m/uL B ON [facility] Segmented neutrophils/100 WBC (Bld) 84 % High 47 - 75 % [facility] Segs Absolute 6.50 [facility] WBC (Bld) [#/Vol] 7.7 10*3/uL [facility] CMPon 12-24-2022 Albumin [Mass/Vol] 4 g/dL 3.5 - 5.2 g/dL N [facility] ALP [Catalytic activity/Vol] 65 U/L 35 - 104 U/L [facility] ALT [Catalytic activity/Vol] 6 U/L 5 - 33 U/L [facility] Anion gap [Moles/Vol] 12 mmol/L 9 - 17 mmol/L [facility] AST [Catalytic activity/Vol] 13 U/L NINF - 32 U/L [facility] Bilirubin [Mass/Vol] 0.3 mg/dL 0.3 - 1 .2 mg/dL [facility] Calcium [Mass/Vol] 9.1 mg/dL 8.6 - 10. 4 mg/dL [facility] Chloride [Moles/Vol] 105 mmol/L 98 - 10 7 mmol/L [facility] CO2 [Moles/Vol] 22 mmol/L 20 - 31 mmol/L [facility] Creatinine [Mass/Vol] 0.63 mg/dL 0.50 - 0.90 mg/dL [facility] GFR/1.73 sq M.predicted MDRD (S/P/Bld) [Vol rate/Area] - PINF [facility] Comment on above: These results are not [...] 108 mg/dL High 70 - 99 mg/dL [facility] Interpretation and review of laboratory results Abnormal [facility] Potassium [Moles/Vol] 3.9 mmol/L 3.7 - 5.3 mmol/L [facility] Protein [Mass/Vol] 7.7 g/dL 6.4 - 8.3 g/dL [facility] Sodium [Moles/Vol] 139 mmol/L 135 - 144 mmol/L [facility] Urea nitrogen [Mass/Vol] 10 mg/dL 6 - 20 mg/dL [facility] Urea nitrogen/Creatinine (Bld) [Mass ratio] 16 9 - [address] [facility] CT ABDOMEN PELVIS W IV CONTR AST Additional Contrast? 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 No acute surgical changes. [facility] EXAMINATION: CT ABDOMEN PELVIS W IV [...] pancreas, gallbladder and liver. No free air. [facility] Ozzy Guidry Jr., MD - 12/24/2022 [...] compared to 2019. No acute surgical changes. [facility]ENTER[facility]ust[facility] Work Phone: Radiology Study observation (narrative) [facility] video[employer] Work Phone: CT ABDOMEN PELVIS W IV CONTR AST Additional Contrast? NoneOrdered By: Ozzy Guidry on 12-24-2022 [employer] [facility] video[employer] Work Phone: HCG Qualitative, Serumon hCG Qual Negative NEGATIVE [facility] Comment on above: Specimens with hCG l evels near the threshold of the test (25 mIU/mL) may give a negative or indeterminate result. In such cases, another test should be performed with a new specimen in 48-72 hours. If early is suspected clinically in this setting, correlation with quantitative serum b-hCG level is suggested. [employer] has confirmed the use of plasma for this test. This has not been cleared or approved by the U.S. Food and Drug Administration. The FDA has determined that such clearance is not necessary. [facility] Lactic Acidon 12-24-2022 Lactate (P mesha) [Moles/Vol] 1.2 mmol/L 0.5 - 2.2 mmol/L [facility] Microscopic Urinalysison - [facility] Bacteria, UA 2+ Abnormal None [facility] Epithelial Cells UA 10 TO 20 /HPF [facility] Interpretation and review of laboratory results Abnormal [facility] RBC clumps Auto (Urine sed) [#/Area] 5 TO 10 [facility] WBC, UA 5 TO 10 0 /HPF [facility] Urinalysison 12-24-2022 Bilirubin Urine Negative NEGATIVE [facility] video[employer] Color, UA Yellow Yellow [facility] Glucose Auto test strip (U) [Mass/Vol] Negative NEGATIVE [facility] Interpretation and review of laboratory results Abnormal [facility] Ketones (U) [Mass/Vol] Negative NEGATIVE [facility] Leukocyte esterase Auto test strip Ql (U) 3+ Abnormal NEGATIVE [facility] [employer] Nitrite Auto test strip Ql (U) Negative NEGATIVE [facility] Protein (U) [Mass/Vol] 6.0 mg/dL 5.0 - 8.[address] [facility] Protein (U) [Mass/Vol] Negative NEGATIVE [facility] Specific [place], UA 1.015 1.005 - 1.030 B ON [facility] Turbidity UA Clear Clear [facility] Urinalysis Comments [facility] Urine Hgb TRACE Abnormal NEGATIVE [facility] Urobilinogen, Urine Normal Normal [facility] CHEMISTRYOrdered By: SYSTEM SYSTEM on 09-29-2022 Albumin [...] 8 mmol/L Normal 6 - 16 mEq/L [facility] AST [Catalytic activity/Vol] 17 [iU]/d Normal [...] 40 U/L Normal 13 - 58 unit/L [facility] Potassium [Moles/Vol] 3.7 mmol/L Normal 3.5 - 5.3 mmol/L [facility] Protein [Mass/Vol] 8.0 g/dL High 6.0 - 7.8 gm/dL [facility] Sodium [Moles/Vol] 134 mmol/L Low 135 - 145 mmol/L [facility] Urea nitrogen [Mass/Vol] 12 mg/dL Normal 5 - 21 mg/dL [facility] Urea nitrogen/Creatinine [Mass ratio] 13 mg/mg [...] Normal 0.0 - 8.0 % [facility] Eosinophils/Leukocytes Auto (Bld) [Pure # fraction] 0.2 E9/L Normal 0.0 - 0.5 E9/L [facility] Lymphocytes/100 WBC (Bld) 15.8 % Normal 14.0 - 50.0 % [facility] Lymphocytes/Leukocytes Auto (Bld) [Pure # fraction] 1.0 E9/L Normal 1.0 - 4.0 E9/L [facility] Monocytes/100 WBC (Bld) 6.4 % Normal 4.0 - 14.0 % [facility] Monocytes/Leukocytes Auto (Bld) [Pure # fraction] 0.4 E9/L Normal 0.2 - 1.0 E9/L [facility] Neutrophils/100 WBC (Bld) 74.6 % Normal 36.0 - 75.0 % [facility] Neutrophils/Leukocytes Auto (Bld) [Pure # fraction] 4.7 E9/L [...] [#/Area] 0-2 /HPF Normal 0-2/HPF [facility] UA Aut o SS Glucose Test strip (U) [Mass/Vol] Negative (09/29/22 8:15 PM) Normal Negative [facility] UA Auto SS Hemoglobin Ql (U) 2+ *ABN* (09/29/22 8:15 PM) Invalid Interpretation Code Negative [facility] UA Auto SS Ketones (U) [Mass/Vol] Negative (09/29/22 8:15 PM) Normal Negative [facility] UA Auto SS [place].plasma/[place] .RBC (Bld) [Mass ratio] 0-3 /HPF Normal 0-3/HPF [...] [facility] UA Auto SS Urobilinogen Qn (U) 0.4228008 {Keyla'U}/dL Normal 0.0 - 1.0 EU/dL [facility] [...] 14 mmol/L Normal 6 - 16 mEq/L [facility] AST [Catalytic activity/Vol] 33 [iU]/d Normal [...] 1.0 mg/dL Normal 0.5 - 1.3 mg/dL [facility] GFR/1.73 sq M.predicted among blacks MDRD (S/P/Bld) [Vol rate/Area] mL/min/1.73 m2 Normal >=59mL/min/1.7 3 m2 [facility] Chem S GFR/1.73 sq M.predicted among non-blacks MDRD (S/P/Bld) [Vol rate/Area] mL/min/1.73 m2 Normal >=59mL/min/1.7 3 m2 [facility] Chem S Globulin (S) [Mass/Vol] 4.8 g/dL High 1.4 - 4.0 gm/dL [facility] Glucose [Mass/Vol] 97 mg/dL Normal 55 - 199 mg/dL [facility] Lactate [Mass/Vol] 1.2 mmol/L Normal 0.5 - 2.2 mmol/L [facility] Lipase [Catalytic activity/Vol] 40 U/L Normal 13 - 58 unit/L [facility] Potassium [Moles/Vol] 4.3 mmol/L Normal 3.5 [...] Normal 0.0 - 8.0 % [facility]eAuto[facility] Eosinophils/Leukocytes Auto (Bld) [Pure # fraction] 0.2 E9/L Normal 0.0 - 0.5 E9/L [facility] Lymphocytes/100 WBC (Bld) 13.9 % Low 14.0 - 50.0 % [facility] Lymphocytes/Leukocytes Auto (Bld) [Pure # fraction] 1.3 E9/L Normal 1.0 - 4.0 E9/L [facility] Monocytes/100 WBC (Bld) 5.3 % Normal 4.0 - 14.0 % [facility] Monocytes/Leukocytes Auto (Bld) [Pure # fraction] 0.5 E9/L Normal 0.2 - 1.0 E9/L [facility] Neutrophils/100 WBC (Bld) 78.7 % High 36.0 - 75.0 % [facility] Neutrophils/Leukocytes Auto (Bld) [Pure # fraction] 7.2 E9/L [...] 9.1 E9/L Normal 4.0 - 11.0 E9/L [facility] HemeAutoSS SEROLOGYOrdered By: Andrew chapin on 05-30-2022 Beta hCG Ql Negative (05/30/22 9:16 PM) Normal [facility] Man Sero URINALYSISOrdered By: Andrew dennis on [...] [#/Area] 5-8 /HPF Normal 0-2/HPF [facility] UA Aut o SS Glucose Test strip (U) [Mass/Vol] Negative (05/30/22 9:39 PM) Normal Negative [facility] UA Auto SS Hemoglobin Ql (U) Trace *ABN* (05/30/22 9:39 PM) Invalid Interpretation Code Negative [facility] UA Auto SS Ketones (U) [Mass/Vol] Negative (05/30/22 9:39 PM) Normal Negative [facility] UA Auto SS [place].plasma/[place] .RBC (Bld) [Mass ratio] 0-3 /HPF Normal 0-3/HPF [...] Desc Clean Catch (05/30/22 9:39 PM) Normal [facility] UA Auto SS Urobilinogen Qn (U) 0.2711125 {Keyla'U}/dL Normal 0.0 - 1.0 EU/dL [facility] UA Auto SS WBC Auto Ql (U) Negative (05/30/22 9:39 PM) Normal Negative [facility] UA Auto SS WBC casts LM.LPF (Urine sed) [#/Area] 0-3 (05/30/22 9:39 PM) Normal [facility] UA Auto SS WBC LM.HPF (Urine sed) [#/Area] 0-5 /HPF Normal 0-5/HPF [facility] UA Auto SS CHEMISTRYOrdered By: SYSTEM SYSTEM [...] 14 mmol/L Normal 6 - 16 mEq/L [facility] AST [Catalytic activity/Vol] 26 [iU]/d Normal [...] 1 11 mmol/L [facility] CO2 [Moles/Vol] 22 mmol/L Normal 21 - 31 mmol/L [facility] Creatinine [Mass/Vol] 0.8 mg/dL Normal 0.5 - 1.3 mg/dL [facility] GFR/1.73 sq M.predicted among blacks MDRD (S/P/Bld) [Vol rate/Area] mL/min/1.73 m2 Normal >=59mL/min/1.7 3 m2 [facility] Chem S GFR/1.73 sq M.predicted among non-blacks MDRD (S/P/Bld) [Vol rate/Area] mL/min/1.73 m2 Normal >=59mL/min/1.7 3 m2 [facility] Chem S Globulin (S) [Mass/Vol] 4.1 g/dL High 1.4 - 4.0 gm/dL [facility] Glucose [Mass/Vol] 105 mg/dL Normal 55 - 199 mg/dL [facility] Lipase [Catalytic activity/Vol] 35 U/L Normal 13 - 58 unit/L [facility] Magnesium [Mass/Vol] 1.5 mg/dL Normal 1.3 - 2 .4 mg/dL [facility] Potassium [Moles/Vol] 3.0 mmol/L Low 3.5 - 5.3 mmol/L [facility] Protein [Mass/Vol] 8.0 g/dL High 6.0 - 7.8 gm/dL [facility] Sodium [Moles/Vol] 132 mmol/L Low 135 - 145 mmol/L [facility] Urea nitrogen [Mass/Vol] 6 mg/dL Normal 5 - 21 mg/dL [facility] Urea nitrogen/Creatinine [Mass ratio] 8 mg/mg Low 10 - 20 [facility] HEMATOLOGYOrdered By: SYSTEM SYSTEM on 02-27-2022 Basophils/100 WBC (Bld) 0.3 % Normal 0.0 - 2.0 % [facility] Basophils/Leukocytes Auto (Bld) [Pure # fraction] 0.0 E9/L Normal 0.0 - 0.2 E9/L [facility] Eosinophils/100 WBC (Bld) 2.3 % Normal 0.0 - 8.0 % [facility] Eosinophils/Leukocytes Auto (Bld) [Pure # fraction] 0.2 E9/L Normal 0.0 - 0.5 E9/L [facility] Lymphocytes/100 WBC (Bld) 6.6 % Low 14.0 - 50.0 % [facility]eAutoSS Lymphocytes/Leukocytes Auto (Bld) [Pure # fraction] 0.4 E9/L Low 1.0 - 4.0 E9/L [facility] Monocytes/100 WBC (Bld) 6.8 % Normal 4.0 - 14.0 % [facility]eAutoSS Monocytes/Leukocytes Auto (Bld) [Pure # fraction] 0.5 E9/L Normal 0.2 - 1.0 E9/L [facility] Neutrophils/100 WBC (Bld) 84.0 % High 36.0 - 75.0 % [facility]AutoSS Neutrophils/Leukocytes Auto (Bld) [Pure # fraction] 5.7 E9/L [...] 6.8 E9/L Normal 4.0 - 11.0 E9/L [facility] HemeAutoSS SEROLOGYOrdered By: Babs gambino on 02-27-2022 HCG.beta subunit (U) [Moles/Vol] Negative Normal FT Man Sero URINALYSISOrdered By: Corie Gardiner on 02-27-2022 Bacteria LM Ql (Urine sed) Trace /HPF Normal Trace/HPF [facility] UA Auto SS Bilirubin Ql (U) Negative (02/27/22 9:10 PM) Normal Negative [facility] UA Auto SS Clarity (U) Slightly Cloudy *ABN* (02/27/22 9:10 PM) Invalid Interpretation Code Clear [facility] UA Auto SS Color (U) Yellow (02/27/22 9:10 PM) Normal Yellow [facility] UA Auto SS Crystals LM Ql (Urine sed) Present (02/27/22 9:10 PM) Normal [facility] UA Auto SS Epithelial cells.squamous LM.HPF (Urine sed) [#/Area] 3-4 /HPF Normal 0-2/HPF [facility] UA Aut o SS Glucose Test strip (U) [Mass/Vol] Negative (02/27/22 9:10 PM) Normal Negative [facility] UA Auto SS Hemoglobin Ql (U) 3+ *ABN* (02/27/22 9:10 PM) Invalid Interpretation Code Negative [facility] UA Auto SS Ketones (U) [Mass/Vol] Negative (02/27/22 9:10 PM) Normal Negative [facility] UA Auto SS [place].plasma/[place] .RBC (Bld) [Mass ratio] 0-3 /HPF Normal 0-3/HPF [...] Desc Clean Catch (02/27/22 9:10 PM) Normal [facility] UA Auto SS Urobilinogen Qn (U) 0.8968491 {Keyla'U}/dL Normal 0.0 - 1.0 EU/dL [facility] UA Auto SS WBC Auto Ql (U) 1+ *ABN* (02/27/22 9:10 PM) Invalid Interpretation Code Negative [facility] UA Auto SS WBC LM.HPF (Urine sed) [#/Area] 0-5 /HPF Normal 0-5/HPF [facility] UA Auto SS CHEMISTRYOrdered By: SYSTEM SYSTEM on 12-18-2021 Troponin I.cardiac [Mass/Vol] pg/mL Low 10.10 - 27.10 pg/mL [facility] Anion gap [Moles/Vol] 14 mmol/L Normal 6 - 16 mEq/L [facility] Remisol Calcium [Mass/Vol] 9.1 mg/dL Normal 8.9 [...] rate/Area] mL/min/1.73 m2 Normal >=59mL/min/1.7 3 m2 [facility] Chem S Glucose [Mass/Vol] 91 mg/dL Normal 55 - 199 mg/dL [facility] Potassium [Moles/Vol] 3.3 mmol/L Low 3.5 - 5.3 mmol/L [facility] Sodium [Moles/Vol] 139 mmol/L Normal 135 - 145 mmol/L [facility] Troponin I.cardiac [Mass/Vol] 2.60 pg/mL Low 10.10 - 27.10 pg/mL [facility] Urea nitrogen [Mass/Vol] 6 mg/dL Normal 5 - 21 mg/dL [facility] Urea nitrogen/Creatinine [Mass ratio] 9 mg/mg [...] Normal 0.0 - 8.0 % [facility]eAutoSS Eosinophils/Leukocytes Auto (Bld) [Pure # fraction] 0.2 E9/L Normal 0.0 - 0.5 E9/L [facility] Lymphocytes/100 WBC (Bld) 20.4 % Normal 14.0 - 50.0 % [facility]eAuto[facility] Lymphocytes/Leukocytes Auto (Bld) [Pure # fraction] 1.4 E9/L Normal 1.0 - 4.0 E9/L [facility] Monocytes/100 WBC (Bld) 8.1 % Normal 4.0 - 14.0 % [facility]eAutoSS Monocytes/Leukocytes Auto (Bld) [Pure # fraction] 0.6 E9/L Normal 0.2 - 1.0 E9/L [facility] Neutrophils/100 WBC (Bld) 68.2 % Normal 36.0 - 75.0 % [facility]eAutoSS Neutrophils/Leukocytes Auto (Bld) [Pure # fraction] 4.7 E9/L Normal 2.0 - 7.5 E9/L [facility] HEMATOLOGYOrdered By: Acosta Aguirre on 12-18-2021 Erythrocyte distribution width (RBC) [Ratio] 16.7 % High 10.9 - 14.2 % [facility] Hematocrit (Bld) [Volume fraction] 35.8 % Normal 34.0 - 46.0 % [facility]eAuto[facility] Hemoglobin (Bld) [Mass/Vol] 12.3 g/dL Normal 12.0 - 16.0 gm/dL [facility]eAuto[facility] MCH (RBC) [Entitic mass] 27.6 pg Normal 27.0 - 34.0 pg [facility] MCHC (RBC) [Mass/Vol] 34.5 g/dL Normal 31.4 - 36.0 gm/dL [facility] MCV (RBC) [Entitic vol] 79.9 fL Low 80.0 - 100.0 fL [facility]eAutoSS Platelet mean volume (Bld) [Entitic vol] 7.9 fL Normal 6.4 - 10.8 fL [facility]SS Platelets (Bld) [#/Vol] 350.0 E9/L Normal 150.0 - 500.0 E9/L [facility] RBC (Bld) [#/Vol] 4.5 E12/L Normal 4.3 - 5.9 E12/L [facility] HemeAutoSS WBC corrected for nucl RBC Auto (Bld) [#/Vol] 6.8 E9/L Normal 4.0 - 11.0 E9/L [facility] HemeAutoSS CT ABDOMEN/PELVIS W/ CONTRAS Ton 07-17-2021 [...] [place]. IMPRESSION: 1. No evidence of active infectious/inflammato ry process within the abdomen or pelvis. 2. 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 No evidence of obstruction. MACRO: None Normal [facility] 07-17-2021 [employer] Authentication Interface Message Text Attestation signed by Heather Archuleta MD at 07/17/2021 3:02 PM Teaching Physician Note: I reviewed the resident's documentation and discussed the patient with the resident on the date of this note. I agree with the resident's medical decision making as documented in the resident's note. Heather Archuleta MD DEPARTMENT OF SURGERY CONSULT - ACUTE CARE SURGERY Rola Aguilar [id number] Chief Complaint/Reason for Consultation Stomal Prolapse from [...] her to go to the ED at [facility] on Thursday 07/12. Workup at OSH [...] i (more content not included)... Normal [facility] ED Provider Noteson 07-17-20 [employer] Authentication Interface Message Text Sign out from [...] condition. ED Course as of Jul 17 0849 [place] Jul 16, 2021 2251 No leukocytosis or anemia. PLT wnl COMPLETE [...] ??? IMPRESSION: 1. No evidence of active infectious/inflammato ry process within the abdomen or pelvis. 2. 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 No evidence of obstruction. CT Abdomen/Pelvis With Contrast [CC] 0246 Messaging surgery [CC] 0327 D/w patient. She describes that ostomy turns dusky when patient has pain. Ostomy created three years ago at [facility]. She was told she would have it for three months. Now, no surgeon wishes to reverse it. [CC] ED Course User Index [CC] Ange Duenas MD [SB] Luli Fish, DO --------- IMPRESSION AND DISPOSITION ------- Clinical Impression Diagnosis Comment Abdominal pain, unspecified [...] James MD, PGY2 Emergency Medicine Resident Pager: [phone] Normal [facility] LACTATE WITH REPEAT EDon CR LACT 1.2 mmol/L Normal 0.5-2.0 [facility] Comment on above: Performed By: #### L ACTREPEAT #### [facility] [address] [place] [address], POTASSIUMon 07-17-2021 Potassium [Moles/Vol] 3.6 mmol/L Normal 3.3-5.3 [facility] Comment on above: Performed By: #### K #### [facility] [address] [place] [address], BASIC METABOLIC PANELon 06-24 Anion gap [Moles/Vol] 14 mmol/L Normal 10-20 [facility] Comment on above: Performed By: #### C RP, CH8 #### [facility] [address] [place], [place], Calcium [Mass/Vol] 9.4 mg/dL Normal 8.4-10.4 [facility] Comment on above: Performed By: #### C RP, CH8 #### [facility] [address] [place], [place], Chloride [Moles/Vol] 102 mmol/L Normal 97-111 [facility] Comment on above: Performed By: #### C RP, CH8 #### [facility] [address] [place] [address], CO2 [Moles/Vol] 24 mmol/L Normal 21-30 [facility] Comment on above: Performed By: #### C RP, CH8 #### [facility] [address] [place] [address], Creatinine [Mass/Vol] 0.79 mg/dL Normal 0.50-1.10 [facility] Comment on above: Performed By: #### C RP, CH8 #### [facility] [address] [place] [address], ESTIMATED GFR (CKD-EPI) 104 mL/min/1.73sqm Normal >=60 [facility] Comment on above: Performed By: #### C RP, CH8 #### [facility] [address] [place] [address], Glucose [Mass/Vol] 87 mg/dL Normal 68-110 [facility] Comment on above: Performed By: #### C RP, CH8 #### [facility] [address] [place] [address], Potassium [Moles/Vol] 3.8 mmol/L Normal 3.3-5.3 [facility] Comment on above: Result Comment: Hemo lysis present Performed By: #### C RP, CH8 #### [facility] [address] [place] [address], Sodium [Moles/Vol] 136 mmol/L Normal 135-148 [facility] Comment on above: Performed By: #### C RP, CH8 #### [facility] [address] [place] [address], Urea nitrogen [Mass/Vol] 7 mg/dL Low 8-22 [facility] Comment on above: Performed By: #### C RP, CH8 #### [facility] [address] [place] [address], C-REACTIVE PROTEINon 10-24-2 021 CRP 2.7 mg/dL High <0.8 [facility] Comment on above: Performed By: #### C RP, CH8 #### [facility] [address] [place] [address], CBC WITH DIFFERENTIALon 06-24 Basophils (Bld) [#/Vol] 0.02 10*3/uL Normal 0.00-0.20 [facility] Comment on above: Performed By: #### E , CBCDSAT #### [facility] [address] [place] [address], Basophils/100 WBC (Bld) 0.2 % Normal <=1.9 [facility] Comment on above: Performed By: #### Philipp SALINAS CBCDSAT #### [facility] [address] [place] [address], Eosinophils (Bld) [#/Vol] 0.12 10*3/uL Normal 0.00-0.70 [facility] Comment on above: Performed By: #### Philipp SALINAS CBCDSAT #### [facility] [address] [place] [address], Eosinophils/100 WBC (Bld) 1.7 % Normal 0.1-4.0 [facility] Comment on above: Performed By: #### Philipp SALINAS CBCDSAT #### [facility] [address] [place] [address], Erythrocyte distribution width (RBC) [Ratio] 15.2 % High 11.5-14.5 [facility] Comment on above: Performed By: #### Philipp SALINAS CBCDSAT #### [facility] [address] [place] [address], Hematocrit (Bld) [Volume fraction] 38.1 % Normal 36.0-46.0 [facility] Comment on above: Performed By: #### Philipp SALINAS CBCDSAT #### [facility] [address] [place] [address], Hemoglobin (Bld) [Mass/Vol] 12.5 g/dL Normal 12.0-15.0 [facility] Comment on above: Performed By: #### Philipp SALINAS CBCDSAT #### [facility] [address] [place] [address], Lymphocytes (Bld) [#/Vol] 1.11 10*3/uL Normal 1.00-4.80 [facility] Comment on above: Performed By: #### Philipp SALINAS, CBCDSAT #### [facility] [address] [place] [address], Lymphocytes/100 WBC (Bld) 15.2 % Low 24.0-44.0 [facility] Comment on above: Performed By: #### Philipp SALINAS, CBCDSAT #### [facility] [address] [place] [address], MCH (RBC) [Entitic mass] 26.8 pg Normal 26.0-34.0 [facility] Comment on above: Performed By: #### Philipp SALINAS, CBCDSAT #### [facility] [address] [place] [address], MCHC (RBC) [Mass/Vol] 32.7 g/dL Normal 32.0-35.9 [facility] Comment on above: Performed By: #### Philipp SALINAS, CBCDSAT #### [facility] [address] [place] [address], MCV (RBC) [Entitic vol] 82 fL Normal 80-100 [facility] Comment on above: Performed By: #### Philipp SALINAS, CBCDSAT #### [facility] [address] [place] [address], MONOCYTE DISTRIBUTION WIDTH 19 Normal <=20 [facility] Comment on above: Performed By: #### Philipp SALINAS CBCDSAT #### [facility] [address] [place] [address], Monocytes (Bld) [#/Vol] 0.37 10*3/uL Normal 0.20-1.00 [facility] Comment on above: Performed By: #### Philipp SALINAS, CBCDSAT #### [facility] [address] [place] [address], Monocytes/100 WBC (Bld) 5.1 % Normal 2.0-11.0 [facility] Comment on above: Performed By: #### Philipp SALINAS, CBCDSAT #### [facility] [address] [place], [place], Neutrophils (Bld) [#/Vol] 5.69 10*3/uL Normal 1.50-8.00 [facility] Comment on above: Performed By: #### Philipp SALINAS, CBCDSAT #### [facility] [address] [place], [place], Neutrophils/100 WBC (Bld) 77.9 % High 31.0-76.0 [facility] Comment on above: Performed By: #### E , CBCDSAT #### [facility] [address] [place], Platelet mean volume (Bld) [Entitic vol] 8.3 fL Normal 7.5-11.2 [facility] Comment on above: Performed By: #### Philipp SALINAS CBCDSAT #### [facility] [address] [place], Platelets (Bld) [#/Vol] 327 10*3/uL Normal 150-400 [facility] Comment on above: Performed By: #### E SR CBCDSAT #### [facility] [address] [place], RBC (Bld) [#/Vol] 4.66 10*6/uL Normal 4.00-5.20 [facility] Comment on above: Performed By: #### E , CBCDSAT #### [facility] [address] [place], WBC (Bld) [#/Vol] 7.3 10*3/uL Normal 4.5-11.5 [facility] Comment on above: Performed By: #### E , CBCDSAT #### [facility] [address] [place], [place], ED Provider Noteson 07-16-20 21 [employer] Authentication Interface Message Text EMERGENCY DEPARTMENT - VISIT NOTE --------- HISTORY OF PRESENT ILLNESS ----- Chief Complaint Patient presents with * Abdominal pain States she has a hernia pushing on her ileostomy that is causing pain. Pt was told to consult surgery. Pt came to the ED due to increased pain. Fire Lieutenant: not needed - patient preferred language is [place]uran. The history is provided by the Patient. [...] pain got more severe to come to [facility]. Patient pain never improved and pain got worse today [facility] No fever, chills. Has nausea but no [...] Pertinent Social History: Per HPI PHYSICAL EXAM - BP 106/64 Pulse (!) 101 Temp 98.5 [...] rebound or guarding. Loose stool noted leaking. [place] stoma. prolapsed Musculoskeletal: Right lower leg: No [...] reviewed and incorporated Interpretation of Results: As bellow Course: as [facility] ED Course as of Jul 17 1812 Sun Jul 16, 20211 No leukocytosis or anemia. PLT wnl COMPLETE [...] ??? IMPRESSION: 1. No evidence of active infectious/inflammato ry process within the abdomen or pelvis. 2. 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 No evidence of obstruction. CT Abdome (more content not included)... Normal [facility] ERYTHROCYTE SEDIMENTATION RA Chris - ESR (Bld) [Velocity] 90 mm/h High <=20 [facility] Comment on above: Performed By: #### E SR, CBCDSAT #### [facility] [address] [place] [address], PROTHROMBIN TIME AND INRon 1 - INR Coag (PPP) [Relative time] 1.06 {INR} Normal 0.90-1.10 [facility] Comment on above: Performed By: #### P T #### [facility] [address] [place] [address], PT Coag (PPP) [Time] 12.0 s Normal 9.7-12.9 [facility] Comment on above: Performed By: #### P T #### [facility] [address] [place] [address], [id number] CBC Auto Differentialon 11- Basophils (Bld) [#/Vol] 0.10 10*3/uL [place] Basophils/100 WBC (Bld) 1 % 0 - 2 % [place] Differential Type YES [facility] [place] Eosinophils (Bld) [#/Vol] 0.10 10*3/uL [place] Eosinophils/100 WBC (Bld) 1 % 0 - 5 % [place] Erythrocyte distribution width (RBC) [Ratio] 14.7 % 12.1 - 15.2 % [place] Hematocrit (Bld) [Volume fraction] 38.2 % 36 - 46 % [place] Hemoglobin (Bld) [Mass/Vol] 12.7 g/dL 12 - 16 g/dL [place] Interpretation and review of laboratory results Abnormal [place] Lymphocytes (Bld) [#/Vol] 0.60 10*3/uL Low [place] Lymphocytes/100 WBC (Bld) 6 % Low 15 - 40 % [place] MCH (RBC) [Entitic mass] 26.7 pg 26 - 34 pg [place] MCHC (RBC) [Mass/Vol] 33.3 g/dL 31 - 37 g/dL [place] MCV (RBC) [Entitic vol] 80.3 fL 80 - 100 fL [place] Monocytes (Bld) [#/Vol] 0.50 10*3/uL [place] Monocytes/100 WBC (Bld) 5 % 4 - 8 % [place] Platelet mean volume (Bld) [Entitic vol] NOT REPORTED 6 - 12 fL [place] Platelets (Bld) [#/Vol] NOT REPORTED [place] Platelets (Bld) [#/Vol] 334 10*3/uL [place] RBC (Bld) [#/Vol] 4.76 10*6/uL 4 - 5.2 m/uL [place] RBC morphology finding Nom (Bld) NOT REPORTED [place] Segmented neutrophils/100 WBC (Bld) 87 % High 47 - 75 % [place] Segs Absolute 7.90 High [place] WBC (Bld) [#/Vol] NOT REPORTED per 100 WBC [place] WBC (Bld) [#/Vol] 9.1 10*3/uL [place] WBC Morphology NOT REPORTED [place] Comprehensive Metabolic Pane l w/ Reflex to MGon 08-10-2020 Albumin [Mass/Vol] 4.8 g/dL 3.5 - 5.2 g/dL [place] Albumin/Globulin [Mass ratio] NOT REPORTED [place] ALP [Catalytic activity/Vol] 102 U/L 35 - 104 U/L [place] ALT [Catalytic activity/Vol] 28 U/L 5 - 33 U/L [place] Anion gap [Moles/Vol] 9 mmol/L 9 - 17 mmol/L [place] AST [Catalytic activity/Vol] 21 U/L <32 [place] Bilirubin Ql (U) 0.34 mg/dL 0.3 - 1.2 mg/dL [place] Bun/Cre Ratio 17 [place] Calcium [Mass/Vol] 9.8 mg/dL 8.6 - 10. 4 mg/dL [place] Chloride [Moles/Vol] 106 mmol/L 98 - 10 7 mmol/L [place] CO2 [Moles/Vol] 22 mmol/L 20 - 31 mmol/L [place] Creatinine [Mass/Vol] 0.69 mg/dL 0.5 - 0.9 mg/dL [place] GFR >60 >60 mL/min [place] GFR Non- >60 >60 mL/min [place] GFR/1.73 sq M predicted among non-blacks MDRD (S/P/Bld) [Vol rate/Area] NOT REPORTED [place] GFR/1.73 sq M predicted among non-blacks MDRD (S/P/Bld) [Vol rate/Area] [place] Comment on above: Average GFR for 20-2 9 years old: 116 mL/min/1.73sq m Chronic Kidney Disease: <60 mL/min/1.73sq m Kidney failure: <15 mL/min/1.73sq m eGFR calculated using average adult body mass. Additional eGFR calculator available at: http://www.Cine[employer]/multiple_crcl_2012.htm Glucose [Mass/Vol] 108 mg/dL High 70 - 99 mg/dL [place] Interpretation and review of laboratory results Abnormal [place] Potassium [Moles/Vol] 3.9 mmol/L 3.7 - 5.3 mmol/L [place] Protein [Mass/Vol] 8.5 g/dL High 6.4 - 8.3 g/dL [place] Sodium [Moles/Vol] 137 mmol/L 135 - 144 mmol/L [place] Urea nitrogen [Mass/Vol] 12 mg/dL 6 - 20 mg/dL [place] HCG Qualitative, Serumon hCG Qual Negative NEGATIVE [place] Comment on above: Specimens with hCG l evels near the threshold of the test (25 mIU/mL) may give a negative or indeterminate result. In such cases, another test should be performed with a new specimen in 48-72 hours. If early is suspected clinically in this setting, correlation with quantitative serum b-hCG level is suggested. [facility] [employer] has confirmed the use of plasma for this test. This has not been cleared or approved by the U.S. Food and Drug Administration. The FDA has determined that such clearance is not necessary. Otheron 08-10-2020 Immature granulocytes (Bld) [#/Vol] NOT REPORTED 0 % [place] CBC Auto Differentialon Basophils (Bld) [#/Vol] 0.00 10*3/uL [place] Basophils/100 WBC (Bld) 0 % 0 - 2 % [place] Differential Type YES [facility] [place] Eosinophils (Bld) [#/Vol] 0.10 10*3/uL [place] Eosinophils/100 WBC (Bld) 2 % 0 - 5 % [place] Erythrocyte distribution width (RBC) [Ratio] 13.8 % 12.1 - 15.2 % [place] Hematocrit (Bld) [Volume fraction] 36.6 % 36 - 46 % [place] Hemoglobin (Bld) [Mass/Vol] 12.2 g/dL 12 - 16 g/dL [place] Interpretation and review of laboratory results Abnormal [place] Lymphocytes (Bld) [#/Vol] 1.00 10*3/uL [place] Lymphocytes/100 WBC (Bld) 13 % Low 15 - 40 % [place] MCH (RBC) [Entitic mass] 27.2 pg 26 - 34 pg [place] MCHC (RBC) [Mass/Vol] 33.3 g/dL 31 - 37 g/dL [place] MCV (RBC) [Entitic vol] 81.7 fL 80 - 100 fL [place] Monocytes (Bld) [#/Vol] 0.60 10*3/uL [place] Monocytes/100 WBC (Bld) 8 % 4 - 8 % [place] Platelet mean volume (Bld) [Entitic vol] NOT REPORTED 6 - 12 fL [place] Platelets (Bld) [#/Vol] 276 10*3/uL [place] Platelets (Bld) [#/Vol] NOT REPORTED [place] RBC (Bld) [#/Vol] 4.48 10*6/uL 4 - 5.2 m/uL [place] RBC morphology finding Nom (Bld) NOT REPORTED [place] Segmented neutrophils/100 WBC (Bld) 77 % High 47 - 75 % [place] Segs Absolute 5.70 [place] WBC (Bld) [#/Vol] NOT REPORTED per 100 WBC [place] WBC (Bld) [#/Vol] 7.4 10*3/uL [place] WBC Morphology NOT REPORTED [place] Comprehensive Metabolic Pane chloe 03-01-2020 Albumin [Mass/Vol] 4.1 g/dL 3.5 - 5.2 g/dL [place] Albumin/Globulin [Mass ratio] NOT REPORTED [place] ALP [Catalytic activity/Vol] 89 U/L 35 - 104 U/L [place] ALT [Catalytic activity/Vol] 22 U/L 5 - 33 U/L [place] Anion gap [Moles/Vol] 11 mmol/L 9 - 17 mmol/L [place] AST [Catalytic activity/Vol] 19 U/L <32 [place] Bilirubin Ql (U) 0.32 mg/dL 0.3 - 1.2 mg/dL [place] Bun/Cre Ratio 15 [place] Calcium [Mass/Vol] 9.3 mg/dL 8.6 - 10. 4 mg/dL [place] Chloride [Moles/Vol] 107 mmol/L 98 - 10 7 mmol/L [place] CO2 [Moles/Vol] 22 mmol/L 20 - 31 mmol/L [place] Creatinine [Mass/Vol] 0.72 mg/dL 0.5 - 0.9 mg/dL [place] GFR >60 >60 mL/min [place] GFR Non- >60 >60 mL/min [place] GFR/1.73 sq M predicted among non-blacks MDRD (S/P/Bld) [Vol rate/Area] [place] Comment on above: Average GFR for 20-2 9 years old: 116 mL/min/1.73sq m Chronic Kidney Disease: <60 mL/min/1.73sq m Kidney failure: <15 mL/min/1.73sq m eGFR calculated using average adult body mass. Additional eGFR calculator available at: http://www.Cinegif/multiple_crcl_2012.htm GFR/1.73 sq M predicted among non-blacks MDRD (S/P/Bld) [Vol rate/Area] NOT REPORTED [place] Glucose [Mass/Vol] 110 mg/dL High 70 - 99 mg/dL [place] Interpretation and review of laboratory results Abnormal [place] Potassium [Moles/Vol] 3.6 mmol/L Low 3.7 - 5.3 mmol/L [place] Protein [Mass/Vol] 7.9 g/dL 6.4 - 8.3 g/dL [place], [place] Sodium [Moles/Vol] 140 mmol/L 135 - 144 mmol/L [place] Urea nitrogen [Mass/Vol] 11 mg/dL 6 - 20 mg/dL [place] Otheron 03-01-2020 Immature granulocytes (Bld) [#/Vol] NOT REPORTED [place] CBC AUTO DIFFon 07-21-2019 Basophils (Bld) [#/Vol] 0.1 103/ul Normal 0.0-0.1 [facility] Comment on above: Performed By: #### C BC #### [facility] [address] [place] [address] Crissy Suzy Basophils/100 WBC (Bld) 0.8 % Normal 0.2-2.0 [facility] Comment on above: Performed By: #### C BC #### [facility] [address] [address] Crissy Suzy Eosinophils (Bld) [#/Vol] 0.4 103/ul Normal 0.0-0.7 [facility] Comment on above: Performed By: #### C BC #### [facility] [address] [place], [place] [id number] Crissy Suzy Eosinophils/100 WBC (Bld) 5.2 % Normal 0.9-7.0 [facility] Comment on above: Performed By: #### C BC #### [facility] [address] [id number] Crissy Suzy Erythrocyte distribution width (RBC) [Ratio] 15.0 % Normal 11.0-15.0 [facility] Comment on above: Performed By: #### C BC #### [facility] [address] [address] Crissy Suzy Hematocrit (Bld) [Volume fraction] 41.0 % Normal 36.0-48.0 [facility] Comment on above: Performed By: #### C BC #### [facility] [address] [place], [place] [id number] Crissy Suzy Hemoglobin (Bld) [Mass/Vol] 13.3 g/dL Normal 12.0-16.0 [facility] Comment on above: Performed By: #### C BC #### [facility] [address] [place] [address] Crissy Suzy IG # 0.01 10e3/ul Normal 0.00-0.03 [facility] Comment on above: Performed By: #### C BC #### [facility] [address] [place] [address] Crissy Suzy IG % 0.1 % Normal 0.0-0.5 [facility] Comment on above: Performed By: #### C BC #### [facility] [address] [place] [address] Crissy Suzy Lymphocytes (Bld) [#/Vol] 1.2 103/ul Normal 1.2-3.8 [facility] Comment on above: Performed By: #### C BC #### [facility] [address] [place], [place] [id number] Crissy Suzy Lymphocytes/100 WBC (Bld) 15.9 % Critically low 20.5-60.0 [facility] Comment on above: Performed By: #### C BC #### [facility] [address] [place] [address] Crissy Almonte MANUAL DIFF REQ NO Normal [facility] Comment on above: Performed By: #### C BC #### [facility] [address] [place], [place] [id number] Crissy Almonte MCH (RBC) [Entitic mass] 27.7 pg Normal 26.7-34.0 [facility] Comment on above: Performed By: #### C BC #### [facility] [address] [place], [place] [id number] Crissy Almonte MCHC (RBC) [Mass/Vol] 32.4 g/dL Normal 29.9-35.2 [facility] Comment on above: Performed By: #### C BC #### [facility] [address] [place], [place] [id number] Crissy Suzy MCV (RBC) [Entitic vol] 85.4 fL Normal 81.0-99.0 [facility] Comment on above: Performed By: #### C BC #### [facility] [address] [place], [place] [id number] Crissy Suzy Monocytes (Bld) [#/Vol] 0.4 103/ul Normal 0.3-0.8 [facility] Comment on above: Performed By: #### C BC #### [facility] [address] [place], [place] [id number] Crissy Suzy Monocytes/100 WBC (Bld) 5.3 % Normal 1.7-12.0 [facility] Comment on above: Performed By: #### C BC #### [facility] [address] [place], [place] [id number] Crissy Suzy Neutrophils (Bld) [#/Vol] 5.4 103/ul Normal 1.4-6.5 [facility] Comment on above: Performed By: #### C BC #### [facility] [address] [place], [place] [id number] Crissy Suzy Neutrophils/100 WBC (Bld) 72.7 % Normal 43.0-75.0 [facility] Comment on above: Performed By: #### C BC #### [facility] [address] [place], [place] [id number] Crissy Suzy Platelet mean volume (Bld) [Entitic vol] 10.6 fL Normal 9.5-13.5 [facility] Comment on above: Performed By: #### C BC #### [facility] [address] [place], [place] [id number] Crissy Suzy Platelets (Bld) [#/Vol] 275 103/ul Normal 150-450 [facility] Comment on above: Performed By: #### C BC #### [facility] [address] [place], [place] [id number] Crissy Suzy RBC (Bld) [#/Vol] 4.80 106/ul Normal 4.20-5.40 The [place] Comment on above: Performed By: #### C BC #### [facility] [address] [place] [address] Crissy Suzy WBC (Bld) [#/Vol] 7.5 103/ul Normal 4.0-11.0 [facility] Comment on above: Performed By: #### C BC #### [facility] [address] [place] [address] Crissystephania Almonte ER URINE PROFILEon 9 Bilirubin [Mass/Vol] Negative Normal NEGATIVE [facility] Comment on above: Performed By: #### ALYSSA KRUEGER #### [facility] [address] [place] [address] Crissy Suzy BLOOD SMALL Normal NEGATIVE [facility] Comment on above: Performed By: #### ALYSSA KRUEGER #### [facility] [address] [place] [address] Crissy Suzy Clarity (U) CLEAR Normal [facility] Comment on above: Performed By: #### ALYSSA KRUEGER #### [facility] [address] [place] [address] Crissy Suzy Color (U) LT. YELLOW Normal YELLOW [facility] Comment on above: Performed By: #### ALYSSA KRUEGER #### [facility] [address] [place], [place] [id number] Crissy Suzy ERUAHD A micrscopic examination will be performed if indicated. Normal [facility] Comment on above: Performed By: #### ALYSSA KRUEGER #### [facility] [address] [place] [address] Crissy Suzy Glucose [Mass/Vol] Negative Normal NEGATIVE The [place] Comment on above: Performed By: #### ALYSSA KRUEGER #### [facility] [address] [place] [address] Crissy Suzy Ketones Ql (U) Negative Normal NEGATIVE [facility] Comment on above: Performed By: #### Philipp BEDOLLA UMICRO #### [facility] [address] [place], [place] [id number] Crissy Suzy Nitrite Ql (U) Negative Normal NEGATIVE [facility] Comment on above: Performed By: #### Philipp BEDOLLA UMICRO #### [facility] [address] [place], [place] [id number] Crissy Suzy pH (Bld) 5.5 Normal 5-9 [facility] Comment on above: Performed By: #### Philipp BEDOLLA UMICRO #### [facility] [address] [place] [address] Crissy Suzy Protein (U) [Mass/Vol] Negative Normal [facility] Comment on above: Performed By: #### Philipp BEDOLLA UMICRO #### [facility] [address] [place] [address] Crissy Suzy SPEC GRAVITY >=1.030 Normal 1.005-<=1.025 [facility] Comment on above: Performed By: #### Philipp BEDOLLA UMICRO #### [facility] [address] [place] [address] Crissy Suzy UR MICRO IND INDICATED Normal [facility] Comment on above: Performed By: #### Philipp BEDOLLA UMICRO #### [facility] [address] [place] [address] Crissy Suzy Urobilinogen Qn (U) 0.2 EU/dl Normal [facility] Comment on above: Performed By: #### Philipp BEDOLLA UMICRO #### [facility] [address] [place] [address] Crissy Suzy WBC (Bld) [#/Vol] Negative Normal NEGATIVE [facility] Comment on above: Performed By: #### Philipp BEDOLAL UMICRO #### [facility] [address] [place], [place] [id number] Crissy Suzy LACTATE/LACTIC ACIDon 2018 Lactate [Moles/Vol] 0.9 mmol/L Normal 0.7-2.[address] [facility] Comment on above: Performed By: #### L ACT #### [facility] Laboratory [address] [place], [place] [id number] Crissystephania Lobatoen LIVER PROFILEon 07-21-2019 Albumin [Mass/Vol] 3.9 g/dL Normal 3.5-5.0 [facility] [place] [facility] Comment on above: Performed By: #### B MP, LIVER #### [facility] [address] [place], [place] [id number] Crissy Suzy Albumin/Globulin [Mass ratio] 0.8 {ratio} Normal [facility] Comment on above: Performed By: #### B MP, LIVER #### [facility] [address] [place], [place] [id number] Crissy Suzy ALP [Catalytic activity/Vol] 84 U/L Normal 38-126 [facility] Comment on above: Performed By: #### B MP, LIVER #### [facility] [address] [place] [address] Crissy Suzy ALT [Catalytic activity/Vol] 30 U/L Normal 9-52 [facility] Comment on above: Performed By: #### B MP, LIVER #### [facility] [address] [place], [place] [id number] Crissy Suzy AST [Catalytic activity/Vol] 29 U/L Normal 14-36 [facility] Comment on above: Performed By: #### B MP, LIVER #### [facility] [address] [place], [place] [id number] Crissy Suzy BILI, CONJUGATED 0.1 mg/dL Normal 0.0-0.3 [facility] Comment on above: Performed By: #### B MP, LIVER #### [facility] [address] [place], [place] [id number] Crissy Suzy Bilirubin Ql (U) 0.3 mg/dL Normal 0.2-1.3 [facility] Comment on above: Performed By: #### B MP, LIVER #### [facility] [address] [place], [place] [id number] Crissy Suzy Globulin (S) [Mass/Vol] 4.6 g/dL Normal [facility] Comment on above: Performed By: #### B MP, LIVER #### [facility] [address], [place] [address] Crissy Suzy Protein [Mass/Vol] 8.5 g/dL Critically high 6.1-8.2 [facility] Comment on above: Performed By: #### B MP, LIVER #### [facility] [address], [place] [address] Crissy Suzy PREG HCG QUALon 07-21-2019 , QUAL Negative Normal NEGATIVE [facility] Comment on above: Performed By: #### P REG #### [facility] [address], [place] [address] Crissy Suzy PROF CHEM 8 (BAS METB)on Anion gap [Moles/Vol] 12.0 mmol/L Normal [facility] Comment on above: Performed By: #### B MP, LIVER #### [facility] [address] [place], [place] [id number] Crissy Suzy Calcium [Mass/Vol] 9.1 mg/dL Normal 8.4-10.2 [facility] [place] [facility] Comment on above: Performed By: #### B MP, LIVER #### [facility] [address] [place], [place] [id number] Crissy Suzy Chloride [Moles/Vol] 101 mmol/L Normal 98-107 [facility] Comment on above: Performed By: #### B MP, LIVER #### [facility] [address] [place], [place] [id number] Crissy Suzy CO2 [Moles/Vol] 25.2 mmol/L Normal 22.0-30.0 [facility] Comment on above: Performed By: #### B MP, LIVER #### [facility] [address] [place], [place] [id number] Crissy Suzy Creatinine [Mass/Vol] 0.80 mg/dL Normal 0.52-1.04 [facility] Comment on above: Performed By: #### B MP, LIVER #### [facility] [address] [place], [place] [id number] Crissy Suzy EGFR-AF VINCENTIAN >60 Normal >=60 [facility] Comment on above: Performed By: #### B MP, LIVER #### [facility] [address], [place] [address] Crissy Suzy EGFR-NON AF VINCENTIAN >60 Normal >=60 [facility] Comment on above: Performed By: #### B MP, LIVER #### [facility] [address] [place] [id number] Crissy Suzy Glucose [Mass/Vol] 86 mg/dL Normal 74-106 [facility] [place] [facility] Comment on above: Performed By: #### B MP, LIVER #### [facility] [address] [place] [id number] Crissy Suzy Potassium [Moles/Vol] 4.2 mmol/L Normal 3.4-5.0 [facility] Comment on above: Performed By: #### B MP, LIVER #### [facility] [address] [place] [address] Crissy Suzy Sodium [Moles/Vol] 134 mmol/L Critically low 137-145 [facility] Comment on above: Performed By: #### B MP, LIVER #### [facility] [address] [place], [place] [id number] Crissy Suzy Urea nitrogen [Mass/Vol] 16.0 mg/dL Normal 7.0-17.0 [facility] Comment on above: Performed By: #### B MP, LIVER #### [facility] [address] [place], [place] [id number] Crissy Suzy Urea nitrogen/Creatinine [Mass ratio] 20.0 mg/mg Normal [facility] Comment on above: Performed By: #### B MP, LIVER #### [facility] [address] [place], [place] [id number] Crissy Suzy URINE MICROSCOPIC ONLYon Bacteria LM.HPF (Urine sed) [#/Area] TRACE Normal NONE SEEN [facility] Comment on above: Performed By: #### ALYSSA KRUEGER #### [facility] [address] [place], [place] [id number] Crissy Suzy CAST NONE SEEN Normal NONE SEEN [facility] Comment on above: Performed By: #### ALYSSA KRUEGER #### [facility] [address] [place] [id number] Crissy Suzy Crystals LM Nom (Urine sed) NONE SEEN Normal NONE SEEN [facility] Comment on above: Performed By: #### ALYSSA KRUEGER #### [facility] [address] [place], [place] [id number] Crissy Suzy CULTURE NOT INDICATED Normal [facility] Comment on above: Performed By: #### ALYSSA KRUEGER #### [facility] [address] [place] [id number] Crissy Suzy Epithelial cells LM.HPF (Urine sed) [#/Area] RARE Normal [facility] Comment on above: Performed By: #### ALYSSA KRUEGER #### [facility] [address] [place], [place] [id number] Crissy Suzy MUCOUS NONE SEEN Normal NONE SEEN [facility] Comment on above: Performed By: #### ALYSSA KRUEGER #### [facility] [address] [place], [place] [id number] Crissy Suzy RBC (U) [#/Vol] 2-5 Normal 0-[address] [facility] Comment on above: Performed By: #### ALYSSA KRUEGER #### [facility] [address] [place], [place] [id number] Crissy Suzy WBC (Bld) [#/Vol] NONE SEEN Normal NONE SEEN [facility] Comment on above: Performed By: #### ALYSSA KRUEGER #### [facility] [address] [place], [place] [id number] Crissy Suzy Vital Signs Date Time Vital Sign Value Performing Clinician Facility 12-25-2024 20:45-0400 Diastolic blood pressure 82 mm[Hg] Alex Ferreira MD Work Phone: [facility] 12-25-2024 20:45-0400 SaO2% (BldA) [Mass fraction] 99 % Alex Ferreira MD Work Phone: [facility] 12-25-2024 20:45-0400 Systolic blood pressure 110 mm[Hg] Alex Ferreira MD Work Phone: [facility] 12-25-2024 19:56-0400 Respiratory rate 18 /min Alex Ferreira MD Work Phone: [facility] 12-25-2024 19:55-0400 Body height 167.6 cm Alex Ferreira MD Work Phone: [facility] 12-25-2024 19:55-0400 Body mass index (BMI) [Ratio] 18.72 kg/m2 Alex Ferreira MD Work Phone: [facility] 12-25-2024 19:55-0400 Body weight 52.62 kg Alex Ferreira MD Work Phone: [facility] 12-25-2024 19:51-0400 Body temperature 98.2 [degF] Alex Ferreira MD Work Phone: [facility] 12-25-2024 19:51-0400 Heart rate 115 /min Alex Ferreira MD Work Phone: [facility] 12-24-2024 07:48-0400 Body height 167.6 cm Pacc 1 Work Phone: [facility] 12-24-2024 07:48-0400 Body mass index (BMI) [Ratio] 19.21 kg/m2 Pacc 1 Work Phone: [facility] 12-24-2024 07:48-0400 Body temperature 98.1 [degF] Pacc 1 Work Phone: [facility] 12-24-2024 07:48-0400 Body weight 54 kg Pacc 1 Work Phone: [facility] 12-24-2024 07:48-0400 Diastolic blood pressure 74 mm[Hg] Pacc 1 Work Phone: [facility] 12-24-2024 07:48-0400 Heart rate 101 /min Pacc 1 Work Phone: [facility] 12-24-2024 07:48-0400 Respiratory rate 16 /min Pacc 1 Work Phone: [facility] 12-24-2024 07:48-0400 SaO2% (BldA) [Mass fraction] 98 % Pacc 1 Work Phone: [facility] 12-24-2024 07:48-0400 Systolic blood pressure 106 mm[Hg] Pacc 1 Work Phone: [facility] 12-23-2024 15:42-0400 Heart rate 107 /min Harry Devine [facility] 12-23-2024 15:42-0400 SaO2% (BldA) [Mass fraction] 100 % Harry Devine [facility] 12-23-2024 15:30-0400 SaO2% (BldA) [Mass fraction] 100 % Harry Devine [facility] 12-23-2024 15:30-0400 Heart rate 113 /min Harry Devine [facility] 12-23-2024 15:30-0400 Diastolic blood pressure 75 mm[Hg] Harry Florese [facility] 12-23-2024 15:30-0400 Mean blood pressure 87 mm[Hg] Harry Devine [facility] 12-23-2024 15:30-0400 Respiratory rate 17 /min Harry Devine [facility] 12-23-2024 15:30-0400 Systolic blood pressure 111 mm[Hg] Harry Florese [facility] 12-23-2024 14:41-0400 SaO2% (BldA) [Mass fraction] 100 % Harry Devine [facility] 12-23-2024 14:41-0400 Heart rate 108 /min Harry Devine [facility] 12-23-2024 14:41-0400 Diastolic blood pressure 76 mm[Hg] Harry Florese [facility] 12-23-2024 14:41-0400 Systolic blood pressure 109 mm[Hg] Harry Sybil [facility] 12-23-2024 14:41-0400 Mean blood pressure 87 mm[Hg] Harry Florese [facility] 12-23-2024 14:41-0400 Respiratory rate 18 /min Harry Florese [facility] 12-23-2024 12:52-0400 Body temperature 98.06 [degF] Harry Florese [facility] 12-23-2024 12:52-0400 Diastolic blood pressure 83 mm[Hg] Harry Florese [facility] 12-23-2024 12:52-0400 Heart rate 122 /min Harry Florese [facility] 12-23-2024 12:52-0400 Respiratory rate 20 /min Harry Devine [facility] 12-23-2024 12:52-0400 Systolic blood pressure 122 mm[Hg] Harry Sybil [facility] 12-17-2024 14:46-0400 Diastolic blood pressure 74 mm[Hg] Heriberto Garcia [facility] 12-17-2024 14:46-0400 Heart rate 125 /min Heriberto Garcia [facility] 12-17-2024 14:46-0400 Mean blood pressure 88 mm[Hg] Heriberto Garcia [facility] 12-17-2024 14:46-0400 Respiratory rate 18 /min Heriberto Garcia [facility] 12-17-2024 14:46-0400 SaO2% (BldA) [Mass fraction] 98 % Heriberto Garcia [facility] 12-17-2024 14:46-0400 Systolic blood pressure 116 mm[Hg] Heriberto Garcia [facility] 12-17-2024 13:53-0400 Diastolic blood pressure 77 mm[Hg] Heriberto Garcia [facility] 12-17-2024 13:53-0400 Systolic blood pressure 114 mm[Hg] Heriberto Garcia [facility] 12-17-2024 13:53-0400 Heart rate 116 /min Heriberto Garcia [facility] 12-17-2024 13:53-0400 Mean blood pressure 89 mm[Hg] Heriberto Garcia [facility] 12-17-2024 13:53-0400 Respiratory rate 18 /min Heriberto Garcia [facility] 12-17-2024 13:53-0400 SaO2% (BldA) [Mass fraction] 100 % Heriberto Garcia [facility] 12-17-2024 12:15-0400 Diastolic blood pressure 74 mm[Hg] Heriberto Garcia [facility] 12-17-2024 12:15-0400 Systolic blood pressure 127 mm[Hg] Heriberto Garcia [facility] 12-17-2024 12:15-0400 Heart rate 109 /min Heriberto Garcia [facility] 12-17-2024 12:15-0400 Mean blood pressure 92 mm[Hg] Heriberto Garcia [facility] 12-17-2024 12:15-0400 Respiratory rate 16 /min Heriberto Garcia [facility] 12-17-2024 12:15-0400 SaO2% (BldA) [Mass fraction] 99 % Heriberto Cervantes [facility] 12-17-2024 04:30-0400 Hourly Rounding Heriberto Cervantes [facility] 12-17-2024 04:30-0400 Promise to Return Heriberto Cervantes [facility] 12-17-2024 00:14-0400 Body temperature 97.7 [degF] Heriberto Cervantes [facility] 12-16-2024 21:47-0400 Body temperature 100.4 [degF] Heriberto Cervantes [facility] 12-16-2024 21:47-0400 Heart rate 138 /min Heriberto Cervantes [facility] 12-15-2024 14:52-0400 Body temperature 97.7 [degF] Elliot Gilberto [facility] 12-15-2024 14:52-0400 Diastolic blood pressure 83 mm[Hg] Elliot Macias [facility] 12-15-2024 14:52-0400 Heart rate 150 /min Elliot Macias [facility] 12-15-2024 14:52-0400 Respiratory rate 18 /min Elliot Macias [facility] 12-15-2024 14:52-0400 SaO2% (BldA) [Mass fraction] 98 % Elliot Macias [facility] 12-15-2024 14:52-0400 Systolic blood pressure 115 mm[Hg] Elliot Macias [facility] 12-13-2024 02:27-0400 Diastolic blood pressure 69 mm[Hg] [facility] 12-13-2024 02:27-0400 Systolic blood pressure 109 mm[Hg] [facility] 12-13-2024 02:27-0400 Blood Pressure Location [facility] 12-13-2024 02:27-0400 Heart rate 122 /min [facility] 12-13-2024 02:27-0400 Respiratory rate 16 /min [facility] 12-13-2024 02:27-0400 SaO2% (BldA) [Mass fraction] 99 % [facility] 12-13-2024 00:33-0400 SaO2% (BldA) [Mass fraction] 99 % [facility] 12-13-2024 00:33-0400 Heart rate 117 /min [facility] 12-13-2024 00:33-0400 Respiratory rate 16 /min [facility] 12-13-2024 00:31-0400 Diastolic blood pressure 76 mm[Hg] [facility] 12-13-2024 00:31-0400 Systolic blood pressure 108 mm[Hg] [facility] 12-13-2024 00:31-0400 Blood Pressure Location [facility] 12-12-2024 23:31-0400 Diastolic blood pressure 110 mm[Hg] [facility] 12-12-2024 23:31-0400 Systolic blood pressure 123 mm[Hg] [facility] 12-12-2024 23:31-0400 Blood Pressure Location [facility] 12-12-2024 23:31-0400 Mean blood pressure 114 mm[Hg] [facility] 12-12-2024 22:31-0400 SaO2% (BldA) [Mass fraction] 99 % [facility] 12-12-2024 22:31-0400 Heart rate 119 /min [facility] 12-12-2024 22:31-0400 Mean blood pressure 77 mm[Hg] [facility] 12-12-2024 22:31-0400 Respiratory rate 16 /min [facility] 12-12-2024 22:01-0400 Mean blood pressure 76 mm[Hg] [facility] 12-12-2024 19:56-0400 Body temperature 98.24 [degF] [facility] 12-12-2024 19:56-0400 Heart rate 73 /min [facility] 12-09-2024 23:03-0400 Body temperature 98.06 [degF] Kaylinn Dokken [facility] 12-09-2024 23:03-0400 Diastolic blood pressure 81 mm[Hg] Kaylinn Dokken [facility] 12-09-2024 23:03-0400 Heart rate 110 /min Kaylinn Dokken [facility] 12-09-2024 23:03-0400 Respiratory rate 17 /min Kaylinn Dokken [facility] 12-09-2024 23:03-0400 SaO2% (BldA) [Mass fraction] 100 % Kaylinn Dokken [facility] 12-09-2024 23:03-0400 Systolic blood pressure 122 mm[Hg] Kaylinn Dokken [facility] 12-09-2024 17:32-0400 Body temperature 99.86 [degF] Kaylinn Dokken [facility] 12-09-2024 17:32-0400 Diastolic blood pressure 82 mm[Hg] Kaylinn Dokken [facility] 12-09-2024 17:32-0400 Heart rate 107 /min Alfred Feldmanen [facility] 12-09-2024 17:32-0400 Respiratory rate 18 /min Alfred Feldmanen [facility] 12-09-2024 17:32-0400 SaO2% (BldA) [Mass fraction] 97 % Alfred Graham [facility] 12-09-2024 17:32-0400 Systolic blood pressure 120 mm[Hg] Alfred Feldmanen [facility] 11-25-2024 17:00-0500 Hourly Rounding Dago MAY [facility] 11-25-2024 17:00-0500 Promise to Return Dago MAY [facility] 11-25-2024 16:00-0500 Hourly Rounding Dago MAY [facility] 11-25-2024 16:00-0500 Promise to Return Dago MAY [facility] 11-25-2024 15:00-0500 Hourly Rounding Dago MAY [facility] 11-25-2024 15:00-0500 Promise to Return Dago MAY [facility] 11-25-2024 10:00-0500 Heart rate 130 /min Dago MAY [facility] 11-25-2024 10:00-0500 Respiratory rate 14 /min Dago MAY [facility] 11-25-2024 09:12-0500 Diastolic blood pressure 79 mm[Hg] Dagolawanda PEREZSLIN [facility] 11-25-2024 09:12-0500 Mean blood pressure 88 mm[Hg] Dagolawanda PEREZSLIN [facility] 11-25-2024 09:12-0500 Systolic blood pressure 123 mm[Hg] Dagolawanda PEREZSLIN [facility] 11-25-2024 08:00-0500 Heart rate 98 /min Dagolawanda PEREZSLIN [facility] 11-25-2024 07:00-0500 Heart rate 93 /min Dagolawanda PEREZSLIN [facility] 11-25-2024 07:00-0500 Respiratory rate 13 /min Dagolawanda PEREZSLIN [facility] 11-25-2024 06:12-0500 Diastolic blood pressure 78 mm[Hg] Dagolawanda PEREZSLIN [facility] 11-25-2024 06:12-0500 Mean blood pressure 107 mm[Hg] Dagolawanda PEREZSLIN [facility] 11-25-2024 06:12-0500 Systolic blood pressure 116 mm[Hg] Dagolawanda PEREZSLIN [facility] 11-25-2024 06:00-0500 Body temperature 98.06 [degF] Dagolawanda PEREZSLIN [facility] 11-25-2024 00:26-0500 SaO2% (BldA) [Mass fraction] 100 % Dagolawanda PEREZSLIN [facility] 11-25-2024 00:04-0500 Diastolic blood pressure 65 mm[Hg] Dago MAY [facility] 11-25-2024 00:04-0500 Mean blood pressure 76 mm[Hg] Dago OLVERA [facility] 11-25-2024 00:04-0500 SaO2% (BldA) [Mass fraction] 100 % Dago OLVERA [facility] 11-25-2024 00:04-0500 Systolic blood pressure 110 mm[Hg] Dago OLVERA [facility] 11-25-2024 00:00-0500 Body temperature 98.06 [degF] Dago OLVERA [facility] 11-24-2024 18:00-0500 Blood Pressure Location Dago OLVERA [facility] 11-24-2024 16:00-0500 Body temperature 97.7 [degF] Dago OLVERA [facility] 11-23-2024 16:00-0500 Body temperature 98.24 [degF] Dago OLVERA [facility] 11-23-2024 12:30-0500 FIO2 30 1 Dago OLVERA [facility] 11-23-2024 07:49-0500 FIO2 30 1 Dago PEREZSLIN [facility] 11-23-2024 07:46-0500 FIO2 30 1 Dago PEREZSLIN [facility] 11-22-2024 09:05-0500 Heart rate 106 /min Dago PEREZSLIN [facility] 11-22-2024 09:05-0500 Respiratory rate 20 /min Dago PEREZSLIN [facility] 11-22-2024 08:18-0500 SaO2% (BldA) [Mass fraction] % Dago OLVERA [facility] Resp Auto SS 11-22-2024 03:52-0500 SaO2% (BldA) [Mass fraction] 99.2 % Dago OLVERA [facility] Resp Auto SS 11-22-2024 03:21-0500 Body temperature 97.7 [degF] Dago OLVERA [facility] 11-22-2024 03:21-0500 Heart rate 135 /min Dago OLVERA [facility] 11-22-2024 03:21-0500 Respiratory rate 20 /min Dago OLVERA [facility] 11-14-2024 23:29-0500 Diastolic blood pressure 67 mm[Hg] Harry Devine [facility] 11-14-2024 23:29-0500 Heart rate 104 /min Harry Florese [facility] 11-14-2024 23:29-0500 Mean blood pressure 76 mm[Hg] Harry Florese [facility] 11-14-2024 23:29-0500 Respiratory rate 18 /min Harry Florese [facility] 11-14-2024 23:29-0500 SaO2% (BldA) [Mass fraction] 99 % Harry Florese [facility] 11-14-2024 23:29-0500 Systolic blood pressure 95 mm[Hg] Harry Sybil [facility] 11-14-2024 23:01-0500 Diastolic blood pressure 64 mm[Hg] Harry Sybil [facility] 11-14-2024 23:01-0500 Heart rate 106 /min Harry Sybil [facility] 11-14-2024 23:01-0500 Mean blood pressure 75 mm[Hg] Harry Devine [facility] 11-14-2024 23:01-0500 Respiratory rate 16 /min Harry Devine [facility] 11-14-2024 23:01-0500 SaO2% (BldA) [Mass fraction] 100 % Harry Florese [facility] 11-14-2024 23:01-0500 Systolic blood pressure 96 mm[Hg] Harry Devine [facility] 11-14-2024 22:30-0500 Diastolic blood pressure 61 mm[Hg] Harry Devine [facility] 11-14-2024 22:30-0500 Heart rate 105 /min Harry Devine [facility] 11-14-2024 22:30-0500 Mean blood pressure 71 mm[Hg] Harry Devine [facility] 11-14-2024 22:30-0500 Respiratory rate 16 /min Harry Devine [facility] 11-14-2024 22:30-0500 SaO2% (BldA) [Mass fraction] 99 % Harry Devine [facility] 11-14-2024 22:30-0500 Systolic blood pressure 91 mm[Hg] Harry Florese [facility] 11-14-2024 17:57-0500 Blood Pressure Location Harry Florese [facility] 11-14-2024 17:57-0500 Body temperature 98.42 [degF] Harry Devine [facility] 11-14-2024 17:33-0500 Heart rate 142 /min Harry Sybil [facility] 11-14-2024 17:33-0500 Respiratory rate 20 /min aHrry Syibl [facility] 10-02-2024 17:45-0500 Diastolic blood pressure 82 mm[Hg] Harry Sybil [facility] 10-02-2024 17:45-0500 Heart rate 101 /min Harry Sybil [facility] 10-02-2024 17:45-0500 Mean blood pressure 88 mm[Hg] Harry Sybil [facility] 10-02-2024 17:45-0500 Respiratory rate 38 /min Harry Sybil [facility] 10-02-2024 17:45-0500 SaO2% (BldA) [Mass fraction] 97 % Harry Sybil [facility] 10-02-2024 17:45-0500 Systolic blood pressure 101 mm[Hg] Harry Sybil [facility] 10-02-2024 17:05-0500 Diastolic blood pressure 79 mm[Hg] Harry Sybil [facility] 10-02-2024 17:05-0500 Heart rate 105 /min Harry Sybil [facility] 10-02-2024 17:05-0500 Mean blood pressure 83 mm[Hg] Harry Sybil [facility] 10-02-2024 17:05-0500 Respiratory rate 42 /min Harry Sybil [facility] 10-02-2024 17:05-0500 SaO2% (BldA) [Mass fraction] 98 % Harry Sybil [facility] 10-02-2024 17:05-0500 Systolic blood pressure 92 mm[Hg] Harry Devine [facility] 10-02-2024 16:00-0500 Diastolic blood pressure 72 mm[Hg] Harry Devine [facility] 10-02-2024 16:00-0500 Heart rate 98 /min Harry Devine [facility] 10-02-2024 16:00-0500 Mean blood pressure 81 mm[Hg] Harry Devine [facility] 10-02-2024 16:00-0500 Respiratory rate 10 /min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 01-13-2023 15:29-0400 Blood Pressure Location [facility] 01-13-2023 14:35-0400 Body temperature 98.24 [degF] [facility] 01-13-2023 14:35-0400 Heart rate 87 /min [facility] 01-13-2023 14:35-0400 Respiratory rate 18 /min [facility] 01-09-2023 16:00-0400 Diastolic blood pressure 55 mm[Hg] Elliot Macias [facility] 01-09-2023 16:00-0400 Heart rate 69 /min Elliot Macias [facility] 01-09-2023 16:00-0400 Mean blood pressure 68 mm[Hg] Elliot Macias [facility] 01-09-2023 16:00-0400 Respiratory rate 16 /min Elliot Macias [facility] 01-09-2023 16:00-0400 SaO2% (BldA) [Mass fraction] 96 % Elliot Macias [facility] 01-09-2023 16:00-0400 Systolic blood pressure 95 mm[Hg] Elliot Macias [facility] 01-09-2023 15:44-0400 Diastolic blood pressure 52 mm[Hg] Elliot Gilberto [facility] 01-09-2023 15:44-0400 Heart rate 71 /min Elliot Gilberto [facility] 01-09-2023 15:44-0400 Mean blood pressure 69 mm[Hg] Elliot Gilberto [facility] 01-09-2023 15:44-0400 Respiratory rate 17 /min Elliot Gilberto [facility] 01-09-2023 15:44-0400 SaO2% (BldA) [Mass fraction] 98 % Elliot Gilberto [facility] 01-09-2023 15:44-0400 Systolic blood pressure 102 mm[Hg] Elliot Gilberto [facility] 01-09-2023 15:00-0400 Diastolic blood pressure 64 mm[Hg] Elliot Gilberto [facility] 01-09-2023 15:00-0400 Heart rate 70 /min Elliot Gilberto [facility] 01-09-2023 15:00-0400 Mean blood pressure 79 mm[Hg] Elliot Gilberto [facility] 01-09-2023 15:00-0400 Respiratory rate 14 /min Elliot Gilberto [facility] 01-09-2023 15:00-0400 Systolic blood pressure 108 mm[Hg] Elliot Gilberto [facility] 01-09-2023 12:44-0400 Body temperature 97.7 [degF] Elliot Gilberto [facility] 01-09-2023 12:44-0400 Heart rate 103 /min Elliot Gilberto [facility] 12-24-2022 16:34-0400 Diastolic blood pressure 69 mm[Hg] Veronica Curtis MD Work Phone: [facility] 12-24-2022 16:34-0400 Heart rate 83 /min Veronica Curtis MD Work Phone: [facility] 12-24-2022 16:34-0400 Respiratory rate 16 /min Veronica Curtis MD Work Phone: [facility] 12-24-2022 16:34-0400 SaO2% (BldA) [Mass fraction] 98 % Veronica Curtis MD Work Phone: [facility] 12-24-2022 16:34-0400 Systolic blood pressure 107 mm[Hg] Veronica Curtis MD Work Phone: [facility] 12-24-2022 15:01-0400 Body height 167.6 cm Veronica Curtis MD Work Phone: [facility] 12-24-2022 15:01-0400 Body mass index (BMI) [Ratio] 33.73 kg/m2 Veronica Curtis MD Work Phone: [facility] 12-24-2022 15:01-0400 Body weight 94.8 kg Veronica Curtis MD Work Phone: [facility] 12-24-2022 14:58-0400 Body temperature 98.4 [degF] Veronica Curtis MD Work Phone: [facility] 09-29-2022 20:29-0500 Diastolic blood pressure 83 mm[Hg] Alex Laura [facility] 09-29-2022 20:29-0500 Heart rate 87 /min Alex Laura [facility] 09-29-2022 20:29-0500 Mean blood pressure 98 mm[Hg] Alex Laura [facility] 09-29-2022 20:29-0500 Respiratory rate 16 /min Alex Laura [facility] 09-29-2022 20:29-0500 SaO2% (BldA) [Mass fraction] 100 % Alex Laura [facility] 09-29-2022 20:29-0500 Systolic blood pressure 129 mm[Hg] Alex Laura [facility] 09-29-2022 19:43-0500 Diastolic blood pressure 77 mm[Hg] Alex Laura [facility] 09-29-2022 19:43-0500 Heart rate 91 /min Alex Laura [facility] 09-29-2022 19:43-0500 Mean blood pressure 85 mm[Hg] Alex Laura [facility] 09-29-2022 19:43-0500 Respiratory rate 19 /min Alex Laura [facility] 09-29-2022 19:43-0500 SaO2% (BldA) [Mass fraction] 100 % Alex Laura [facility] 09-29-2022 19:43-0500 Systolic blood pressure 101 mm[Hg] Alex Laura [facility] 09-29-2022 19:07-0500 Body temperature 98.42 [degF] Alex Laura [facility] 09-29-2022 19:07-0500 Diastolic blood pressure 77 mm[Hg] Alex Laura [facility] 09-29-2022 19:07-0500 Heart rate 100 /min Alex Laura [facility] 09-29-2022 19:07-0500 Respiratory rate 18 /min Alex Laura [facility] 09-29-2022 19:07-0500 SaO2% (BldA) [Mass fraction] 99 % Alex Laura [facility] 09-29-2022 19:07-0500 Systolic blood pressure 101 mm[Hg] Alex Laura [facility] 05-31-2022 00:10-0400 Diastolic blood pressure 66 mm[Hg] Kaylinn Dokken [facility] 05-31-2022 00:10-0400 Heart rate 77 /min Kaylinn Dokken [facility] 05-31-2022 00:10-0400 Hourly Rounding Kaylinn Dokken [facility] 05-31-2022 00:10-0400 Mean blood pressure 80 mm[Hg] Kaylinn Dokken [facility] 05-31-2022 00:10-0400 Respiratory rate 20 /min Kaylinn Dokken [facility] 05-31-2022 00:10-0400 SaO2% (BldA) [Mass fraction] 100 % Kaylinn Dokken [facility] 05-31-2022 00:10-0400 Systolic blood pressure 107 mm[Hg] Kaylinn Dokken [facility] 05-30-2022 23:03-0400 Diastolic blood pressure 64 mm[Hg] Kaylinn Dokken [facility] 05-30-2022 23:03-0400 Heart rate 81 /min Kaylinn Dokken [facility] 05-30-2022 23:03-0400 Hourly Rounding Kaylinn Dokken [facility] 05-30-2022 23:03-0400 Mean blood pressure 78 mm[Hg] Kaylinn Dokken [facility] 05-30-2022 23:03-0400 Respiratory rate 20 /min Kaylinn Dokken [facility] 05-30-2022 23:03-0400 SaO2% (BldA) [Mass fraction] 100 % Kaylinn Dokken [facility] 05-30-2022 23:03-0400 Systolic blood pressure 105 mm[Hg] Kaylinn Dokken [facility] 05-30-2022 22:10-0400 Diastolic blood pressure 80 mm[Hg] Kaylinn Dokken [facility] 05-30-2022 22:10-0400 Heart rate 77 /min Kaylinn Dokken [facility] 05-30-2022 22:10-0400 Hourly Rounding Kaylinn Dokken [facility] 05-30-2022 22:10-0400 Mean blood pressure 88 mm[Hg] Kaylinn Dokken [facility] 05-30-2022 22:10-0400 Respiratory rate 20 /min Kaylinn Dokken [facility] 05-30-2022 22:10-0400 SaO2% (BldA) [Mass fraction] 100 % Kaylinn Dokken [facility] 05-30-2022 22:10-0400 Systolic blood pressure 105 mm[Hg] Kaylinn Dokken [facility] 05-30-2022 20:34-0400 Body temperature 98.42 [degF] Alfred Graham [facility] 02-27-2022 23:00-0400 Diastolic blood pressure 74 mm[Hg] Alex Laura [facility] 02-27-2022 23:00-0400 Heart rate 90 /min Alex Laura [facility] 02-27-2022 23:00-0400 Mean blood pressure 91 mm[Hg] Alex Laura [facility] 02-27-2022 23:00-0400 Respiratory rate 16 /min Alex Laura [facility] 02-27-2022 23:00-0400 SaO2% (BldA) [Mass fraction] 98 % Alex Laura [facility] 02-27-2022 23:00-0400 Systolic blood pressure 124 mm[Hg] Alex Laura [facility] 02-27-2022 21:55-0400 Diastolic blood pressure 79 mm[Hg] Alex Laura [facility] 02-27-2022 21:55-0400 Heart rate 93 /min Alex Laura [facility] 02-27-2022 21:55-0400 Nursing Progress Note Reason Other: to CT via cart Alex Laura [facility] 02-27-2022 21:55-0400 Respiratory rate 18 /min Alex Laura [facility] 02-27-2022 21:55-0400 SaO2% (BldA) [Mass fraction] 97 % Alex Laura [facility] 02-27-2022 21:55-0400 Systolic blood pressure 127 mm[Hg] Alex Laura [facility] 02-27-2022 20:00-0400 Diastolic blood pressure 91 mm[Hg] Alex Laura [facility] 02-27-2022 20:00-0400 Heart rate 95 /min Alex Laura [facility] 02-27-2022 20:00-0400 SaO2% (BldA) [Mass fraction] 100 % Alex Laura [facility] 02-27-2022 20:00-0400 Systolic blood pressure 137 mm[Hg] Alex Laura [facility] 02-27-2022 19:25-0400 Body temperature 98.78 [degF] Alex Luara [facility] 12-18-2021 05:31-0400 Diastolic blood pressure 80 mm[Hg] [facility] 12-18-2021 05:31-0400 Heart rate 89 /min [facility] 12-18-2021 05:31-0400 Mean blood pressure 94 mm[Hg] [facility] 12-18-2021 05:31-0400 SaO2% (BldA) [Mass fraction] 99 % [facility] 12-18-2021 05:31-0400 Systolic blood pressure 123 mm[Hg] [facility] 12-18-2021 03:50-0400 Body temperature 97.88 [degF] [facility] 12-18-2021 03:50-0400 Diastolic blood pressure 74 mm[Hg] [facility] 12-18-2021 03:50-0400 Heart rate 110 /min [facility] 12-18-2021 03:50-0400 Respiratory rate 16 /min [facility] 12-18-2021 03:50-0400 SaO2% (BldA) [Mass fraction] 96 % [facility] 12-18-2021 03:50-0400 Systolic blood pressure 142 mm[Hg] [facility] 08-10-2021 07:47-0500 Body height 167.6 cm Kale Cheema MD Work Phone: [facility] 08-10-2021 07:47-0500 Body mass index (BMI) [Ratio] 35.98 kg/m2 Kale Cheema MD Work Phone: [facility] 08-10-2021 07:47-0500 Body temperature 98.01 [degF] Kale Cheema MD Work Phone: [facility] 08-10-2021 07:47-0500 Body weight 101.11 kg Kale Cheema MD Work Phone: [facility] 08-10-2021 07:47-0500 Diastolic blood pressure 89 mm[Hg] Kale Cheema MD Work Phone: [facility] 08-10-2021 07:47-0500 Heart rate 84 /min Kale Cheema MD Work Phone: [facility] 08-10-2021 07:47-0500 Respiratory rate 18 /min Kale Cheema MD Work Phone: [facility] 08-10-2021 07:47-0500 SaO2% (BldA) [Mass fraction] 99 % Kale Cheema MD Work Phone: [facility] 08-10-2021 07:47-0500 Systolic blood pressure 128 mm[Hg] Kale Cheema MD Work Phone: [facility] 08-10-2020 09:17-0500 BP Diastolic 56 mm[Hg] [place] 08-10-[place] 09:17-0500 BP Systolic 106 mm[Hg] Roselia Hensley [facility] [place] [facility] [place] 08-10-2020 09:17-0500 Pulse (Heart Rate) 75 /min Roselia Hensley [facility], [place] 08-10-2020 09:17-0500 Pulse Oximetry 96 % Roselia Hensley [facility] , [place] 08-10-2020 09:17-0500 Respiratory Rate 18 /min Ros[facility] [place] 08-10-2020 08:01-0500 BMI (Body Mass Index) 37.77 kg/m2 Roselia Hensley [facility], [place] 08-10-2020 08:01-0500 Body Temperature 97.81 [degF] Roselia [facility] [place] 08-10-2020 08:01-0500 Body weight 106.14 kg Roselia Hensley [facility] , [place] 08-10-2020 08:01-0500 Height 167.6 cm Roselia Hensley [facility] , [place] 03-01-2020 22:35-0400 BP Diastolic 67 mm[Hg] [facility] [place] 03-01-2020 22:35-0400 BP Systolic 118 mm[Hg] [facility] J[facility] [place] [place] 03-01-2020 22:35-0400 Pulse Oximetry 99 % Jo Chenitrov [facility] [place] 03-01-2020 21:05-0400 BMI (Body Mass Index) 38.29 kg/m2 Jo Hensley [facility] [place] [place] 03-01-2020 21:05-0400 Body Temperature 99.39 [degF] Jo Chenitrov [facility] [place] 03-01-2020 21:05-0400 Body weight 107.59 kg Jo Chenitrov [facility] [place] 03-01-2020 21:05-0400 Pulse (Heart Rate) 116 /min [facility] [place] 03-01-2020 21:05-0400 Respiratory Rate 20 /min [facility] [place] Encounters Encounter Date Encounter Type Care Provider Facility Start: 12-25-2024 End: 12-25-2024 Emergency department patient visit Rahi Harriet MD Work Phone: [facility] Emergency Department Comment on above: Crohn's disease of p erianal region with fistula (HCC) (Primary Dx) Start: 12-25-2024 End: 12-25-2024 Admission to same day surgery center Shaq Thakkar MD Work Phone: Colorectal Surgery Comment on above: Dr Pérez Start: 12-25-2024 End: 12-25-2024 ambulatory Shaq Thakkar MD Work Phone: Colorectal Surgery Start: 12-25-2024 End: 12-28-2024 Telephone encounter Michael Cheema APRN.CNP Work Phone: Pre Anesthesia Comment on above: Results Start: 12-24-2024 End: 12-24-2024 Admission to establishment Pacc [place] 1 Work Phone: Pre Anesthesia Start: 12-24-2024 End: 12-24-2024 ambulatory SHAQ THAKKAR Facility:[facility] Start: 12-24-2024 End: 12-24-2024 Anesthesia consultation Pacc [place] 1 Work Phone: Pre Anesthesia Comment on above: Pre-op evaluation (P rimary Dx); Anemia, unspecified type; Generalized seizures (HCC); Ileostomy in place (HCC); Perineal abscess; Anxiety and depression Start: 12-24-2024 Encounter for other preprocedural examination SHAQ THAKKAR [facility] Start: 12-24-2024 End: 12-24-2024 Preprocedural examination done Pacc [place] 1 Work Phone: [facility] Start: 12-23-2024 End: 12-23-2024 Emergency department patient visit Harry Devine [facility] Start: 12-23-2024 End: 12-23-2024 ambulatory Ja Pérez Facility:[facility] Start: 12-17-2024 End: 12-18-2024 Evaluation and management of inpatient JEANINE ISAAC Facility:[facility] Start: 12-16-2024 End: 12-17-2024 Emergency department patient visit Heriberto Cervantes Facility:[facility] Start: 12-15-2024 End: 12-15-2024 Emergency department patient visit Elliotdennys Macias [facility] Start: 12-15-2024 End: 12-15-2024 ambulatory MAGDALENE BOYLE Not Available Start: 12-14-2024 End: 12-15-2024 Admission to same day surgery center Shaq Thakkar MD Work Phone: Colorectal Surgery Comment on above: Anorectal abscess Start: 12-14-2024 End: 12-15-2024 ambulatory Shaq Thakkar MD Work Phone: Colorectal Surgery Start: 12-12-2024 End: 12-13-2024 Emergency department patient visit Carolyn Caglewes Facility:[facility] Start: 12-09-2024 End: 12-09-2024 Emergency department patient visit Alfred Graham [facility] Start: 12-04-2024 End: 12-04-2024 Admission to same day surgery center Solis Flores RN Colorectal Surgery Comment on above: Crohns Start: 12-04-2024 End: 12-04-2024 ambulatory Solis Flores RN Colorectal Surgery Start: 12-04-2024 End: 12-04-2024 Patient encounter procedure Shaq Thakkar MD Work Phone: Colorectal Surgery Comment on above: Crohn disease of col on and rectum (HCC) (Primary Dx); Anal fistula; Perianal Crohn's disease, with fistula (HCC); Generalized abdominal pain; Colonic stricture (HCC) Start: 11-23-2024 End: 11-26-2024 Clinisync Result Encounter Ted Petersen DO Work Phone: [facility] External Department Unsolicited Start: 11-23-2024 End: 11-26-2024 Clinisync Result Encounter Ted Petersen DO Work Phone: [facility] External Department Unsolicited Start: 11-23-2024 End: 11-23-2024 ambulatory Ted Petersen [facility] Work Phone: Start: 11-23-2024 End: 11-23-2024 Departed Referred Ted Petersen DO Work Phone: [facility] [place] Work Phone: Start: 11-22-2024 End: 11-25-2024 Evaluation and management of inpatient Dago OLVERA Facility:[facility] Start: 11-22-2024 End: 11-25-2024 Evaluation and management of inpatient Dago OLVERA [facility] Start: 11-14-2024 End: 11-14-2024 Emergency department patient visit Harry Devine [facility] Start: 11-11-2024 End: 11-11-2024 ambulatory Ja Pérez Facility:[facility] Start: 11-11-2024 End: 11-11-2024 Patient encounter procedure Ja Ajmini [facility] Start: 10-25-2024 Non-patient / Non-visit Ted rosado DO [facility] Phone[facility] Work Phone: Start: 10-02-2024 End: 10-02-2024 Emergency department patient visit Harry Devine [facility] Start: 08-12-2024 End: 08-12-2024 Telephone encounter Lee Ann Humphries DO Work Phone: Gastroenterology [facility] Start: 08-12-2024 End: 08-12-2024 ambulatory MONICASERGEI RENDON Facility:[facility] Start: 07-23-2024 Emergency department patient visit Carolyn Mcmahon Facility:[facility] Start: 07-20-2024 End: 07-20-2024 ambulatory Shaq Thakkar Facility:[facility] Start: 07-17-2024 End: 07-17-2024 ambulatory SHAQ THAKKAR Facility:[facility] Start: 07-17-2024 End: 07-17-2024 Patient encounter procedure Shaq Thakkar MD Work Phone: Colorectal Surgery Comment on above: Anal fistula (Primar y Dx); Crohn's disease with fistula, unspecified gastrointestinal tract location (HCC) Start: 07-13-2024 End: 07-13-2024 Emergency department patient visit Elliot Macias [facility] Start: 07-13-2024 End: 07-13-2024 Specialty Pharmacy Zaira Campbell [facility] Comment on above: SPP Inflammatory Con ditions - Medication Refill (Entyvio) Start: 07-01-2024 End: 07-01-2024 ambulatory Zaira Campbell [facility] Start: 07-01-2024 End: 07-01-2024 Follow-up encounter Zaira Campbell [facility] Comment on above: SPP Inflammatory Con ditions - Follow-up (Enytvio); Insurance Authorization ([place] renewal approved) Start: 06-30-2024 End: 06-30-2024 Emergency department patient visit Harry Devine Facility:[facility] Start: 06-12-2024 End: 06-12-2024 ambulatory Zaira Campbell [facility] Start: 06-12-2024 End: 06-12-2024 Follow-up encounter Zaira Campbell [facility] Comment on above: SPP Inflammatory Con ditions - Follow-up (Entyvio); Insurance Authorization ([place] renewal approved for 1 month) SPP Inflammatory Con ditions - Medication Refill (Entyvio) Start: 05-15-2024 End: 05-15-2024 Specialty Pharmacy Zaira Campbell [facility] Comment on above: SPP Inflammatory Con ditions - Medication Refill (Entyvio) Start: 05-13-2024 End: 05-13-2024 Telephone encounter Candis Laughlin RN Work Phone: General Surgery Start: 04-08-2024 End: 04-08-2024 Emergency department patient visit [facility] Start: 04-01-2024 Telephone encounter Maddie Sevilla RN [facility] Start: 04-01-2024 End: 04-01-2024 ambulatory LEE ANNCHRISTI HUMPHRIES [facility] Start: 04-01-2024 End: 04-01-2024 Patient encounter procedure Mary Infusion Chair 3 Work Phone: [facility] Start: 03-25-2024 Telephone encounter Maddie Sevilla RN [facility] Start: 03-12-2024 End: 03-12-2024 Patient encounter procedure Mary Infusion Chair 2 Work Phone: [facility] Start: 03-12-2024 End: 03-12-2024 ambulatory LEE ANNCHRISTI HUMPHRIES [facility] Comment on above: Arrived Start: 03-08-2024 End: 03-08-2024 Emergency department patient visit [facility] Start: 03-04-2024 End: 03-04-2024 Emergency department patient visit [facility] Start: 03-02-2024 End: 03-02-2024 ambulatory Zuly Soto Facility: [facility] Start: 03-02-2024 End: 03-02-2024 Patient encounter procedure Zuly Soto [facility] Start: 02-26-2024 ambulatory Zaira finley [facility] Start: 02-26-2024 Patient encounter procedure Zaira Campbell RPh [facility] Comment on above: SPP Inflammatory Con ditions - Treatment Referral (Entyvio); Insurance Authorization (PA submitted ) Start: 02-26-2024 Telephone encounter Lee Ann browning DO Work Phone: Gastroenterology Comment on above: Orders (Entyvio); Ca re Coordinator - Other Start: 02-25-2024 End: 02-25-2024 ambulatory LEE ANN HUMPHRIES Facility:[facility] Start: 02-25-2024 End: 02-25-2024 Office outpatient visit 25 minutes Lee Ann Humphries DO Work Phone: Gastroenterology [facility] Comment on above: Crohn's disease of [...] Evaluation and management of inpatient JORJE LOYD Facility:[facility] Start: 01-17-2024 Emergency department patient visit KALE RENDON Facility:[facility] Start: 01-17-2024 Telephone encounter Rut mccartney MD Work Phone: Gastroenterology Comment on above: Starting Gate Driver - O ther Start: 12-21-2023 End: 12-21-2023 Emergency department patient visit Elliot Macias [facility] Start: 12-07-2023 End: 12-08-2023 Emergency department patient visit Harry Devine [facility] Start: 11-15-2023 End: 11-15-2023 Patient encounter procedure Patricia Ramirez APRN.CNM Work Phone: Obstetrics/Gynecology Comment on above: At risk for depresse d mood during period (Primary Dx); Lactating mother Start: 10-24-2023 End: 10-24-2023 Patient encounter procedure Whi Tech 1 Chief Security Officer Mfm Frv[facility] 345 Maternal Medicine Comment on above: Maternal Crohn's dis ease affecting in third trimester (HCC) (Primary Dx); Crohn's disease of colon with complication (HCC) Start: 10-01-2023 End: 10-01-2023 ambulatory Anoop Lopez Facility:[facility] Start: 10-01-2023 End: 10-01-2023 Emergency department patient visit Harry Devine Facility:[facility] Start: 10-01-2023 End: 10-01-2023 ambulatory Anoop Ed Lopez Facility:[facility] Start: 09-07-2023 End: 09-23-2023 Pre-admission assessment Anoop Ed Lopez [facility] Start: 09-06-2023 End: 09-06-2023 ambulatory Anoop Lopez Facility:[facility] Start: 09-06-2023 End: 09-06-2023 OB Triage Anoop Lopez [facility] Start: 09-06-2023 End: 09-06-2023 Emergency department patient visit Heriberto Cervantes Facility:[facility] Start: 09-05-2023 End: 09-05-2023 Patient encounter procedure [...] above: Follow Up (Needs OV) Start: 08-19-2023 Telephone encounter Nae araya MD Work Phone: Obstetrics/Gynecology Comment on above: cramping; Bleeding W ith Start: 08-05-2023 Telephone encounter Starting Gate Driver SHAHBAZ Maternal Medicine Comment on above: Starting Gate Driver - O ther (PRAF) Start: 08-01-2023 End: [...] anxiety medica tion Start: 07-05-2023 Telephone encounter Starting Gate Driver RN Obstetrics/Gynecology Comment on above: PRAF (1st [...] 06-03-2023 Emergency department patient visit El Shepard [facility] Emergency 03 Start: 05-25-2023 End: 05-25-2023 Emergency department patient visit Herbierto Cervantes [facility] Start: 04-30-2023 Telephone encounter Araceli ortega MD Work Phone: [facility] Provider Adult Comment on above: Hospital To Hospital Start: 04-26-2023 End: 04-27-2023 Emergency department patient visit Alfred Graham [facility] Start: 04-18-2023 Telephone encounter Yfn stephens APRN.MANAGER STORAGE Work Phone: Gastroenterology Comment on above: Appointment; Patient Update; Starting Gate Driver - Other Start: 04-14-2023 End: 04-15-2023 Emergency department patient visit Carolyn Mcmahon [facility] Start: 04-14-2023 Chart abstracting Courtney Schroeder Colorectal Surgery Start: 04-05-2023 Telephone encounter Qing jaimes [facility] Work Phone: Gastroenterology Comment on above: Appointment Start: 03-10-2023 End: 03-10-2023 Emergency department patient visit Elliot Macias [facility] Start: 03-06-2023 Telephone encounter Yfn stephens APRN.MANAGER STORAGE Work Phone: [facility] Comment on above: Medication Authoriza tion (Cortifoam 10% foam requires PA) Start: 03-05-2023 Telephone encounter Rut mccartney MD Work Phone: Gastroenterology Comment on above: Patient Update Start: 02-21-2023 End: 02-21-2023 Patient encounter procedure Karlos RAWLS [facility] Start: 02-04-2023 End: 02-04-2023 Patient encounter procedure Rut Lagos MD Work Phone: Gastroenterology Comment on above: Crohn's disease of c olon with fistula (HCC) (Primary Dx); History of endoscopy; Imaging of gastrointestinal tract abnormal; Crohn's colitis, unspecified complication (HCC) Start: 01-25-2023 End: 01-26-2023 Emergency department patient visit Alfred Graham [facility] Start: 01-18-2023 Orders Only Zhane Quinones MD Work Phone: Gastroenterology Comment on above: Diarrhea, unspecifie d type (Primary Dx) Start: 01-13-2023 End: 01-13-2023 Emergency department patient visit Carolyn Drake Lisandro [facility] Start: 01-09-2023 End: 01-09-2023 Emergency department patient visit Elliot Macias [facility] Start: 12-24-2022 End: 12-24-2022 Emergency department patient visit Veronica Curtis MD Work Phone: [facility] Comment on above: Gastroenteritis (Moni blaire Dx) Start: 09-29-2022 End: 09-29-2022 Emergency department patient visit Alex Sanchez [facility] Start: 05-30-2022 End: 05-31-2022 Emergency department patient visit Alfred Graham [facility] Start: 02-27-2022 End: 02-27-2022 Emergency department patient visit Alex Sanchez [facility] Start: 12-18-2021 End: 12-18-2021 Emergency department patient visit Carolyn Mcmahon [facility] Start: 08-10-2021 End: 08-10-2021 Emergency department patient visit Kale Cheema MD Work Phone: [facility] Comment on above: Fungal infection of skin of abdomen (Primary Dx); History of ileostomy; History of Crohn's disease Start: 07-17-2021 ambulatory [facility]KNOWN PROVID[facility] Start: 07-16-2021 End: 07-17-2021 Emergency department patient visit UNKNOWN PROVIDER Facility:[facility] Start: 08-10-2020 End: 08-10-2020 Emergency department patient visit Roselia Gallardo Work Phone: [facility] Comment on above: Acute Crohn's diseas e without complication (HCC) (Primary Dx); Generalized abdominal pain Start: 03-01-2020 End: 03-01-2020 Emergency department patient visit Jo Staples Work Phone: [facility] Comment on above: Abdominal pain, unsp ecified abdominal location (Primary Dx); Exacerbation of ulcerative colitis with rectal bleeding (HCC) Start: 07-21-2019 End: 07-21-2019 Patient encounter procedure HARRY SYBIL Facility:[facility] Procedures Date Procedure Procedure Detail Performing Clinician Start: 12-24-2024 Antibody screen SHAQ THAKKAR Comment on above: Order Comment: Specimen Type: BLOOD SPEC IMENOrdering Facility: [facility] Address: [address] [place] [address] Performed By: #### T SCR ####[facility] BLOOD BANKCLIA [id number] [facility] [id number] [place] [address] OF [facility] Start: 12-17-2024 Antibody screen JEANINE ISAAC Comment on above: Order Comment: Specimen Type: BLOOD SPEC IMEN Ordering Facility: [facility] Address: [address] [place] [address] Performed By: #### T SCR #### [facility] BLOOD BANK CLIA [id number] [place] Order Comment: Speci men Type: BLOOD SPECIMENOrdering Facility: [facility] Address: [address] [place] [address] Performed By: #### T SCR ####[facility] BLOOD BANKCLIA [id number] [address] Start: 11-23-2024 CSF (PCR) Ted Trinity DO Work Phone: Start: 11-23-2024 C SPINAL FLUID Ted Petersen DO Work Phone: Start: 11-09-2024 H/O: ileostomy Peres Talal Sarmini Start: 07-20-2024 I&d ischiorectal&/perirectal abscess spx Peres Sarmini Start: 07-20-2024 I&d vulva/perineal abscess Peres Sarm ini Start: 03-01-2024 H/O: ileostomy Zuly Ganesh Soto Start: 01-20-2024 Colonoscopy flx dx w/collj spec when pfrmd Peres Sarmini Start: 01-20-2024 Enterosc >2nd prtn w/ileum w/wo collj spec spx Peres Sarmini Start: 10-24-2023 Us preg uterus after 1st trimest 09/23 gestation Nae Costa MD Work Phone: Start: 10-24-2023 delivery only Peres Sarmini Start: 10-24-2023 Salpingectomy complete/partial uni/bi spx Peres Sarmini Start: 09-05-2023 URINE OB DIP B/O Nae Costa MD Work Phone: Start: 08-01-2023 URINE OB DIP B/O Nae [...] Start: 06-03-2023 End: 06-03-2023 EKG impression El W [place] Start: 02-20-2023 H/O: ileostomy Karlos RAWLS Start: 01-18-2023 Colonoscopy flx dx w/collj spec when pfrmd Peres Jean Mariemini Start: 01-18-2023 Enterosc >2nd prtn w/ileum w/wo collj spec spx Peres Sarmini Start: 01-18-2023 Colonoscopy Karoyldavid Graham Comment on above: MUSCOSAL ULCERATIONS IN THE SIGMOID COLO N PER DR NATASHA PRICE @ [facility] Start: 12-24-2022 Ct abdomen & pelvis w/contrast material Veronica Curtis MD Work Phone: Start: 12-24-2022 Urinalysis microscopic only Veronica Curtis MD Work Phone: Start: 12-24-2022 Urnls dip stick/tablet rgnt auto w/o microscopy Vernoica Curtis MD Work Phone: Start: 12-24-2022 Comprehensive metabolic panel Veronica rodriguez MD Work Phone: Start: 01-22-2021 H/O: surgery History of creation of ostomy Zhane Quinones MD Work Phone: Start: 08-10-2020 Radex abd compl aqt abd w/s/e/d views 1 view ch Roselia Gallardo Work Phone: Start: 08-10-2020 Gonadotropin chorionic qualitative Roselia Gallardo Work Phone: Start: 08-10-2020 Blood count complete auto&auto difrntl wbc Roselia Gallardo Work Phone: Start: 03-01-2020 Blood count complete auto&auto difrntl wbc Veselin Jhoan Work Phone: Start: 03-01-2020 Comprehensive metabolic [...] (1 of 3 - Risk 3-dose series) [facility] Start: 2055 Hepatitis B Vaccine (1 of 3 - Risk 3-dose series) Hepatitis B Vaccine (1 of 3 - Risk 3-dose series) [facility] Start: 09-19-2033 DTaP/Tdap/Td vaccine (4 - Td or Tdap) DTaP/Tdap/Td vaccine (4 - Td or Tdap) [facility] Start: 09-19-2033 Urine microalbumin profile DTaP,Tdap,Td Vaccine (4 - Td or Tdap) [facility] Start: 11-26-2025 End: 11-26-2025 Patient encounter procedure 11/26/2025 8:40 AM EST Office Visit Gastroenterology [address] [place] [address] Sravani Kaye MD, PhD [address] [place] [address] IBS Gastroenterology Comment on above: IBS Start: 07-23-2025 End: 07-23-2025 Patient encounter procedure 07/23/2025 8:00 AM EDT Office Visit Gastroenterology [address] [facility] [place] [address] Sravani Kaye MD, PhD [address] [place] [address] IBS Gastroenterology Comment on above: IBS Start: 04-23-2025 Influenza vaccination Flu vaccine (Season Ended) [facility] Start: 02-05-2025 DTaP/Tdap/Td vaccine (3 - Td or Tdap) DTaP/Tdap/Td vaccine (3 - Td or Tdap) [facility] Start: 02-05-2025 Urine microalbumin profile [facility] Start: 01-22-2025 End: 01-22-2025 Patient encounter procedure 01/22/2025 9:00 AM EDT Office Visit Colorectal Surgery [address] [place] [address] Marsha Alarcon APRN.MANAGER STORAGE [address] [place] [address] S/p EUA and seton placement Colorectal Surgery Comment on above: S/p EUA and seton placement Start: 01-08-2025 End: 01-08-2025 Admission to same day surgery center 01/08/2025 9:50 AM EDT - 01/08/2025 3:30 PM EDT Surgery [facility] Operating Room [address] [place] [address] [place] [address] [place] [address] COLECTOMY ABDOMINAL W/ PROCTECTOMY W/ ILEOSTOMY [facility] Operating Room Comment on above: COLECTOMY ABDOMINAL W/ PROCTECTOMY W/ IL EOSTOMY Start: 01-08-2025 End: 01-08-2025 Colectomy tot abdl w/proctectomy w/ileostomy COLECTOMY ABDOMINAL W/ PROCTECTOMY W/ ILEOSTOMY Crohn's disease of perianal region, with fistula (HCC) 01/08/2025 9:50 AM EDT [facility] Start: 01-08-2025 Subsequent hospital visit by physician 01/08/2025 9:50 AM EDT Hospital Encounter [facility] Operating Room [address] [place] [address] [place] [address] [place] [id number] Crohn's disease of perianal region, with fistula (HCC) [K50.113, K60.30] [facility] Comment on above: Crohn's disease of perianal region, with fistula (HCC) [K50.113, K60.30] Start: 12-24-2024 End: 03-25-2025 Ferritin [Mass/volume] in Serum or Plasma [facility] Comment on above: Expected: 12/24/2024, Expires: Start: 12-24-2024 End: 03-25-2025 Iron and Iron binding capacity panel - Serum or Plasma [facility] Comment on above: Expected: 12/24/2024, Expires: Start: 12-24-2024 End: 12-24-2024 Anesthesia consultation 12/24/2024 7:40 AM EDT PAT Pre Anesthesia [address] [place] [address] 1, Pacc [place] [address] [place] [address] 01/08 NEEDS IN PERSON COLECTOMY ABDOMINAL W/ PROCTECTOMY W/ ILEOSTOMY [5959] - Abdomen - N/A Pre Anesthesia Comment on above: 01/08 NEEDS IN PERSON COLECTOMY ABDOMINAL W/ PROCTECTOMY W/ ILEOSTOMY [4424] - Abdomen - N/A Start: 12-19-2024 End: 12-19-2024 ambulatory 12/19/2024 11:30 AM EDT Results Only [facility] [address] [place] [address] [facility] Start: 12-18-2024 End: 03-19-2025 CBC W Auto Differential panel - Blood COMPLETE BLOOD COUNT AND DIFFERENTIAL Lab Routine Anal fistula Expected: 12/18/2024 (Approximate), Expires: 03/19/2025 [facility] Work Phone: Comment on above: Expected: 12/18/2024 (Approximate), Expi res: 03/19/2025 Start: 12-18-2024 End: 03-19-2025 Comprehensive metabolic 2000 panel - Serum or Plasma COMPREHENSIVE METABOLIC PANEL Lab Routine Anal fistula Expected: 12/18/2024 (Approximate), Expires: 03/19/2025 [facility] Comment on above: Expected: 12/18/2024 (Approximate), Expi res: 03/19/2025 Start: 12-18-2024 End: 03-19-2025 TYPE + SCREEN TYPE + SCREEN Blood Bank Routine Anal fistula Expected: 12/18/2024 (Approximate), Expires: 03/19/2025 [facility] Comment on above: Expected: 12/18/2024 (Approximate), Expi res: 03/19/2025 Start: 12-15-2024 End: 12-15-2024 Patient encounter procedure 12/15/2024 1:40 PM EDT Office Visit BLANKA SAEZ [address] [place] [address] Magdalene Boyle PA [address] [place] [address] BLANK[facility] SAEZ Start: 09-04-2024 End: 09-04-2024 Nursing evaluation of patient and report 09/04/2024 9:15 AM EST Nurse Visit Colorectal Surgery [address] [address] Therapy, [place] [address] [place] [address] f/u Post Op Colorectal Surgery Comment on above: f/u Post Op Start: 09-04-2024 End: 09-04-2024 Patient encounter procedure 09/04/2024 9:00 AM EST Office Visit Colorectal Surgery [address] [place] [address] [place] [address] [place], [place] [id number] f/u Post Op Colorectal Surgery Comment on above: f/u Post Op Start: 07-29-2024 End: 07-29-2024 Specialty Pharmacy 07/29/2024 9:00 AM EST Specialty Pharmacy [facility] [address] [place] [address] Pharmacist, [facility]ty[facility] [address] [place] [address] [place] [address] REFILL - Entyvio. PA exp: 07/10/2025. ND 07/22-mult attempts [facility] Comment on above: REFILL - Entyvio. PA exp: 07/10/2025. ND 07/22-mult attempts Start: 07-17-2024 End: 07-17-2024 Patient encounter procedure 07/17/2024 10:00 AM EDT Office Visit Colorectal Surgery [address] [place] [address] [place] [address] [place] [address] f/u perianal abscess Colorectal Surgery Comment on above: f/u perianal abscess Start: 07-16-2024 End: 07-16-2024 Specialty Pharmacy 07/16/2024 9:00 AM EDT Specialty Pharmacy [facility] [address] [place] [address] Pharmacist, [facility] [address] [place] [address] [place] [address] REFILL - Entyvio. PA exp: 07/10/2025. ND 07/22-lvm [facility] Comment on above: REFILL - Entyvio. PA exp: 07/10/2025. ND 07/22-lvm Start: 07-13-2024 End: 07-13-2024 Specialty Pharmacy 07/13/2024 9:15 AM EDT Specialty Pharmacy [facility] [address] [place] [address] Pharmacist, [facility] [address] [place] [address] [place] [address] REFILL - Entyvio. PA exp: 07/10/2025. ND 07/22- [facility] Comment on above: REFILL - Entyvio. PA exp: 07/10/2025. ND 07/22- Start: 07-01-2024 End: 07-01-2024 Specialty Pharmacy 07/01/2024 9:00 AM EDT Specialty Pharmacy [facility] [address] [place] [address] Pharmacist, [facility] [address] [place] [address] [place] [address] REFILL - Entyvio. PA exp: 07/10/2024. ND 07/22-OV req for further approvals- pt aware [facility] Comment on above: REFILL - Entyvio. PA exp: 07/10/2024. ND 07/22-OV req for further approvals- pt aware Start: 06-19-2024 End: 06-19-2024 Patient encounter procedure 06/19/2024 9:45 AM EDT Office Visit Colorectal Surgery [address] [place] [address] [place] [address] [place] [address] f/u perianal abscess Colorectal Surgery Comment on above: f/u perianal abscess Start: 06-15-2024 End: 06-15-2024 Specialty Pharmacy 06/15/2024 9:00 AM EDT Specialty Pharmacy [facility] [address] [place] [address] Pharmacist, [facility] [address] [place] [address] [place] [address] REFILL - Entyvio. PA exp 05/24/24. ND 06/24 [facility] Comment on above: REFILL - Entyvio. PA exp 05/24/24. ND 2 Start: 06-02-2024 End: 06-02-2024 Patient encounter procedure 06/02/2024 11:40 AM EDT Office Visit Gastroenterology [facility] [address] [place], [place] [id number] [place] [address] [place] [address] f/u crohns Gastroenterology [facility] Comment on above: f/u crohns Start: 05-24-2024 Covid-19 Vaccine ( season) Covid-19 Vaccine ( season) [facility] Start: 05-24-2024 Covid-19 Vaccine ( season) Covid-19 Vaccine ( season) [facility] Start: 05-24-2024 Influenza vaccination Influenza Vaccine (#1) [facility] Start: 05-21-2024 End: 05-21-2024 ambulatory 05/21/2024 4:00 PM EDT Specialty Pharmacy [facility] [employer] [place] [phone] [place] [address] Pharmacist, [facility] [address] [place] [address] [place] [address] Delayed OB - Entyvio pens. dose due 06/15? PA exp 05/24 [facility] Comment on above: Delayed OB - Entyvio pens. dose due 06/15 ? PA exp 05/24 Start: 05-18-2024 End: 05-18-2024 Specialty Pharmacy 05/18/2024 9:00 AM EDT Specialty Pharmacy [facility] [employer] [place] [phone] [place], [place] [phone] Pharmacist, [facility] [address] [place] [address] [place] [address] REFILL - Entyvio. PA exp 05/24/24. ND 05/27. [facility] Comment on above: REFILL - Entyvio. PA exp 05/24/24. ND 4. Start: 04-20-2024 End: 04-20-2024 ambulatory 04/20/2024 4:00 PM EDT Specialty Pharmacy [facility] [address] [place] [address] Pharmacist, [facility] [address] [place] [address] [place] [address] Delayed OB - Entyvio pens. dose due 04/29. PA exp 05/24/24. [facility] Comment on above: Delayed OB - Entyvio pens. dose due 7. PA exp 05/24/24. Start: 03-31-2024 End: 03-31-2024 ambulatory 03/31/2024 4:00 PM EDT Specialty Pharmacy [facility] [address] [place] [address] Pharmacist, [facility] [address] [place] [address] [place] [address] Delayed OB - Entyvio pens. IV doses not yet scheduled as of 03/03/24 [facility] Comment on above: Delayed OB - Entyvio pens. IV doses not yet scheduled as of 03/03/24 Start: 03-25-2024 End: 03-25-2024 ambulatory 03/25/2024 7:30 AM EDT Procedure [facility] [address] [place] [id number] entyvio [facility] Comment on above: entyvio Start: 03-12-2024 End: 03-12-2024 ambulatory 03/12/2024 9:00 AM EDT Procedure [facility] [address] [place] [id number] ENTYVIO [facility] Comment on above: ENTYVIO Start: 02-25-2024 End: 02-25-2024 Patient encounter procedure 02/25/2024 3:20 PM EDT Office Visit Gastroenterology [facility] [address] [place] [address] [place] [address] [place] [address] F/U OV following discharge from Hospital Gastroenterology [facility] Comment on above: F/U OV following discharge from Hospital Start: 09-23-2023 Depression Assessment Depression Assessment [facility] Start: 09-05-2023 End: 12-05-2023 CBC panel - Blood by Automated count CBC Lab Routine Anemia during in third trimester Expected: 09/05/2023, Expires: 12/05/2023 [facility] Work Phone: Comment on above: Expected: 09/05/2023, Expires: 4 Start: 09-05-2023 End: 12-05-2023 Ferritin [Mass/volume] in Serum or Plasma FERRITIN BLD Lab Routine Anemia during in third trimester Expected: 09/05/2023, Expires: 12/05/2023 [facility] Work Phone: Comment on above: Expected: 09/05/2023, Expires: 4 Start: 09-05-2023 End: 12-05-2023 Iron and Iron binding capacity panel - Serum or Plasma IRON + TIBC Lab Routine Anemia during in third trimester Expected: 09/05/2023, Expires: 12/05/2023 [facility] Work Phone: Comment on above: Expected: 09/05/2023, Expires: 4 Start: 09-05-2023 End: 09-05-2024 OBSTETRIC ULTRASOUND [facility] OBSTETRIC ULTRASOUND WHI Anc Imaging Routine 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) Expected: 09/05/2023, Expires: 09/05/2024 [facility] Work Phone: Comment on above: Expected: 09/05/2023, Expires: 4 Start: 09-05-2023 End: 12-05-2023 SYPHILIS TOTAL W/REFLEX SYPHILIS TOTAL W/REFLEX Lab Routine care, subsequent , third trimester Expected: 09/05/2023, Expires: 12/05/2023 [facility] Work Phone: Comment on above: Expected: 09/05/2023, Expires: 4 Start: 08-01-2023 End: 10-31-2023 CBC panel - Blood by Automated count CBC Lab Routine care, subsequent , second trimester Screening for diabetes mellitus Expected: 08/01/2023, Expires: 10/31/2023 [facility] Work Phone: Comment on above: Expected: 08/01/2023, Expires: 4 Start: 08-01-2023 End: 10-31-2023 GEST GLUC SCREEN, 1-HR, 50 GM, NON-FASTING GEST GLUC SCREEN, 1-HR, 50 GM, NON-FASTING Lab Routine care, subsequent , second trimester Screening for diabetes mellitus Expected: 08/01/2023, Expires: 10/31/2023 [facility] Work Phone: Comment on above: Expected: 08/01/2023, Expires: 4 Start: 08-01-2023 End: 10-31-2023 SYPHILIS TOTAL W/REFLEX SYPHILIS TOTAL W/REFLEX Lab Routine care, subsequent , second trimester Expected: 08/01/2023, Expires: 10/31/2023 [facility] Work Phone: Comment on above: Expected: 08/01/2023, Expires: 4 Start: 07-04-2023 End: 09-03-2023 CARRIER SCREEN, STANDARD CARRIER SCREEN, STANDARD Lab Routine care, subsequent , second trimester Expected: 07/04/2023, Expires: 09/03/2023 [facility] Work Phone: Comment on above: Expected: 07/04/2023, Expires: 3 Start: 07-04-2023 End: 09-03-2023 Chromosome 21 trisomy [Presence] in Blood or Tissue by Cytogenetics [id number] PLUS Lab Routine care, subsequent , second trimester Expected: 07/04/2023, Expires: 09/03/2023 [facility] Work Phone: Comment on above: Expected: 07/04/2023, Expires: 3 Start: 07-04-2023 End: 09-03-2023 HEMOGLOBIN EVALUATION CASCADE HEMOGLOBIN EVALUATION CASCADE Lab Routine care, subsequent , second trimester Expected: 07/04/2023, Expires: 09/03/2023 [facility] Work Phone: Comment on above: Expected: 07/04/2023, Expires: 3 Start: 07-04-2023 End: 09-03-2023 Hepatitis B virus surface Ag [Presence] in Serum HEP B SURF AG SCRN Lab Routine care, subsequent , second trimester Expected: 07/04/2023, Expires: 09/03/2023 [facility] Work Phone: Comment on above: Expected: 07/04/2023, Expires: 3 Start: 07-04-2023 End: 09-03-2023 Hepatitis C virus Ab [Presence] in Serum HEPATITIS C ANTIBODY IA WITH CONFIRMATION Lab Routine care, subsequent , second trimester Expected: 07/04/2023, Expires: 09/03/2023 [facility] Work Phone: Comment on above: Expected: 07/04/2023, Expires: 3 Start: 07-04-2023 End: 09-03-2023 HIV 1+2 Ab [Presence] in Serum or Plasma by Immunoassay HIV 1 2 COMBO(AG/AB),WITH REFLEX TO DIFFERENTIATION Lab Routine care, subsequent , second trimester Expected: 07/04/2023, Expires: 09/03/2023 [facility] Work Phone: Comment on above: Expected: 07/04/2023, Expires: 3 Start: 07-04-2023 End: 07-04-2024 OBSTETRIC ULTRASOUND WHI OBSTETRIC ULTRASOUND WHI Anc Imaging Routine care, subsequent , second trimester Expected: 07/04/2023, Expires: 07/04/2024 [facility] Work Phone: Comment on above: Expected: 07/04/2023, Expires: 4 Start: 07-04-2023 End: 09-03-2023 RUBELLA IGG AB RUBELLA IGG AB Lab Routine care, subsequent , second trimester Expected: 07/04/2023, Expires: 09/03/2023 [facility] Work Phone: Comment on above: Expected: 07/04/2023, Expires: 3 Start: 07-04-2023 End: 09-03-2023 SYPHILIS TOTAL W/REFLEX SYPHILIS TOTAL W/REFLEX Lab Routine care, subsequent , second trimester Expected: 07/04/2023, Expires: 09/03/2023 [facility] Work Phone: Comment on above: Expected: 07/04/2023, Expires: 3 Start: 07-04-2023 End: 09-03-2023 TYPE + SCREEN TYPE + SCREEN Blood Bank Routine care, subsequent , second trimester Expected: 07/04/2023, Expires: 09/03/2023 [facility] Work Phone: Comment on above: Expected: 07/04/2023, Expires: 3 Start: 05-24-2023 Covid-19 Vaccine ( season) Covid-19 Vaccine ( season) [facility] Start: 05-24-2023 Influenza vaccination [facility] Start: 04-23-2023 Influenza vaccination Flu vaccine (Season Ended) [facility] Start: 09-23-2022 DEPRESSION ASSESSMENT DEPRESSION ASSESSMENT [facility] Start: 05-24-2021 Influenza vaccination Flu vaccine (#1) [facility] Start: 04-05-2021 COVID-19 Vaccine (3 - Booster for Pfizer series) COVID-19 Vaccine (3 - Booster for Pfizer series) [facility] Start: 04-05-2021 COVID-19 VACCINE (3 - Pfizer series) COVID-19 VACCINE (3 - Pfizer series) [facility] Start: 03-08-2021 COVID-19 VACCINE (3 - Pfizer risk series) COVID-19 VACCINE (3 - Pfizer risk series) [facility] Start: 05-24-2020 Influenza vaccination [place] Start: 2016 PAP TESTING PAP TESTING [facility] Start: 2016 Screening for malignant neoplasm of cervix [facility] Start: 2014 DTaP/Tdap/Td vaccine (1 - Tdap) DTaP/Tdap/Td vaccine (1 - Tdap) [place] Start: 2014 DTaP/Tdap/Td vaccine (2 - Tdap) DTaP/Tdap/Td vaccine (2 - Tdap) [facility] Start: 2014 HEPATITIS A (1 of 2 - Risk 2-dose series) HEPATITIS A (1 of 2 - Risk 2-dose series) [facility] Start: 2014 Hepatitis A Vaccine (1 of 2 - Risk 2-dose series) Hepatitis A Vaccine (1 of 2 - Risk 2-dose series) [facility] Start: 2014 Hepatitis B Vaccine (1 of 3 - 19+ 3-dose series) Hepatitis B Vaccine (1 of 3 - 19+ 3-dose series) [facility] Start: 2014 SHINGRIX VACCINE (1 of 2) SHINGRIX VACCINE (1 of 2) [facility] Start: 2013 Hepatitis C screening Hepatitis C screen [facility] Start: 2013 HEPATITIS C SCREENING HEPATITIS C SCREENING [facility] Start: 2013 HIV SCREENING HIV SCREENING [facility] Start: 2011 Screening for Chlamydia trachomatis Chlamydia screen [place], [place] Start: 2010 HIV screening HIV screen [facility] Start: 2007 Depression Screen Depression Screen [facility] Start: 2006 HPV vaccine (1 - 2-dose series) HPV vaccine (1 - 2-dose series) [facility] Start: 2005 Meningococcal B Vaccine: Consider Based On Risk (1 of 4 - Increased Risk) Meningococcal B Vaccine: Consider Based On Risk (1 of 4 - Increased Risk) [facility] Start: 2005 MENINGOCOCCAL B: Consider based on risk (1 of 4 - Increased Risk Bexsero 2-dose series) MENINGOCOCCAL B: Consider based on risk (1 of 4 - Increased Risk Bexsero 2-dose series) [facility] Start: 2005 MENINGOCOCCAL B: Consider based on risk (1 of 4 - Increased Risk) MENINGOCOCCAL B: Consider based on risk (1 of 4 - Increased Risk) [facility] Start: 10-01-2001 Varicella vaccine (2 of 2 - 2-dose childhood series) Varicella vaccine (2 of 2 - 2-dose childhood series) [facility] Start: 2001 PNEUMOCOCCAL (1 - PCV) PNEUMOCOCCAL (1 - PCV) [facility] Start: 2001 Pneumococcal vaccination Pneumococcal Vaccine (1 of 2 - PCV) [facility] Start: 12-11-2000 MMR (2 of 2 - Risk 2-dose series) MMR (2 of 2 - Risk 2-dose series) [facility] Start: 12-11-2000 MMR Vaccine (2 of 2 - Risk 2-dose series) MMR Vaccine (2 of 2 - Risk 2-dose series) [facility] Start: 12-11-2000 Polio vaccine (2 of 3 - 4-dose series) Polio vaccine (2 of 3 - 4-dose series) Paul Verduzco [facility] Start: 1996 HEPATITIS A (1 of 2 - Risk 2-dose series) HEPATITIS A (1 of 2 - Risk 2-dose series) [facility] Start: 1996 Varicella vaccine (1 of 2 - 2-dose childhood series) Varicella vaccine (1 of 2 - 2-dose childhood series) [facility] [place] Start: 1995 Hepatitis C screening Hepatitis C screen [facility] Bacteria identified in Urine by Culture URINE CULTURE Microbiology Routine care, subsequent , second trimester 07/04/2023 12:05 PM EDT [facility] Work Phone: CARRIER SCREEN, STANDARD CARRIER SCREEN, STANDARD Lab Routine care, subsequent , second trimester 07/05/2023 10:02 AM EDT [facility] Work Phone: Chromosome 21 trisom y [Presence] in Blood or Tissue by Cytogenetics [id number] PLUS Lab Routine care, subsequent , second trimester 07/05/2023 10:02 AM [facility] Work Phone: ECG COMPLETE ECG COMPLETE ECG Routine Pre-op evaluation Ordered: 12/24/2024 [facility] Work Phone: Comment on above: Ordered: 12/24/2024 HEMOGLOBIN EVALUATIO N CASCADE HEMOGLOBIN EVALUATION CASCADE Lab Routine care, subsequent , second trimester 07/05/2023 10:02 AM [facility] Work Phone: Hepatitis B virus surface Ag [Presence] in Serum HEP B SURF AG SCRN Lab Routine care, subsequent , second trimester 07/05/2023 10:02 AM [facility] Work Phone: Hepatitis C virus Ab [Presence] in Serum HEPATITIS C ANTIBODY IA WITH CONFIRMATION Lab Routine care, subsequent , second trimester 07/05/2023 10:02 AM [facility] Work Phone: HIV 1+2 Ab [Presence ] in Serum or Plasma by Immunoassay HIV 1 2 COMBO(AG/AB),WITH REFLEX TO DIFFERENTIATION Lab Routine care, subsequent , second trimester 07/05/2023 10:02 AM [facility] Work Phone: End: 01-19-2024 ILEOSCOPY ILEOSCOPY Endoscopy Routine Diarrhea, unspecified type 1 Occurrences starting 01/18/2023 until 01/19/2024 [facility] Work Phone: Comment on above: 1 Occurrences starting 01/18/2023 until 01/19/2024 RUBELLA IGG AB RUBELLA IGG AB L ab Routine care, subsequent , second trimester 07/05/2023 10:02 AM [facility] Work Phone: SYPHILIS TOTAL W/REFLEX SYPHILIS TOTAL W/REFLEX Lab Routine care, subsequent , second trimester 07/05/2023 10:02 AM [facility] Work Phone: TYPE + SCREEN TYPE + SCREEN Blood Bank Routine care, subsequent , second trimester 07/05/2023 10:02 AM [facility] Work Phone: End: 08-10-2020 Urinalysis, reflex to microscopic Urinalysis, reflex to microscopic Lab STAT One Time for 1 Occurrences starting 08/10/2020 until 08/10/2020 [facility] Comment on above: One Time for 1 Occurrences starting 07/24 until 08/10/2020 XR ACUTE ABD SERIES CHEST 1 VW XR ACUTE ABD SERIES CHEST 1 VW Imaging STAT 08/10/2020 9:27 AM EST [facility] Immunizations Immunization Date Immunization Notes Care Provider Elvira buckley 10-27-2023 measles, mumps and rubella virus vaccine Patricia Ramirez APRN.CNM Work Phone: [facility] 09-19-2023 respiratory syncytia l virus (RSV) vaccine, bivalent (ABRYSVO) [address] 09-19-2023 tetanus toxoid, reduced diphtheria toxoid, and acellular pertussis vaccine, adsorbed [address] 07-04-2023 influenza, injectabl e, quadrivalent, contains preservative Starting Gate Driver RN [facility] 07-04-2023 influenza virus vaccine, unspecified formulation Maddie Sevilla RN [facility] 02-08-2021 COVID-19 original vaccine, age 12+ yr, monovalent (PFIZER-BIONTECH - PURPLE TOP) Zhane Quinones MD Work Phone: [facility] 01-18-2021 COVID-19 original vaccine, age 12+ yr, monovalent (PFIZER-BIONTECH - PURPLE TOP) Zhane Quinones MD Work Phone: [facility] 08-12-2015 influenza virus vaccine, whole virus Zhane Quinones MD Work Phone: [facility] 08-12-2015 influenza, whole Everett SALAM [facility] 02-05-2015 tetanus toxoid, reduced diphtheria toxoid, and acellular pertussis vaccine, adsorbed [facility] Comment on above: Reason for Medicatio n: Other (see comment) 07-09-2001 varicella virus vaccine Zhane Quinones MD Work Phone: [facility] 11-13-2000 diphtheria, tetanus toxoids and acellular pertussis vaccine, unspecified formulation Zhane Quinones MD Work Phone: [facility] 11-13-2000 DTaP, unspecified formulation [employer] [facility] 11-13-2000 measles, mumps and rubella virus vaccine Zhane Quinones MD Work Phone: [facility] 11-13-2000 poliovirus vaccine, inactivated Zhane Quinones MD Work Phone: [facility] 11-13-2000 poliovirus vaccine, unspecified formulation [employer] [facility] NEGATED: Highlighted row has not occurred!04-08-2014 pneumococcal polysaccharide vaccine, 23 valent [facility] NEGATED: Highlighted row has not occurred!03-20-2014 influenza, seasonal, injectable [facility] Comment on above: Result Note: obs Payers Date Payer Category Payer Self-pay 2022 Medicaid [id number] 2021 Unknown 2017 [facility] MED[facility] xxxxxxxxxxx 2017-Present [phone] CLAIMS DEPARTMENT [address] [place] [address] xxxxxxxxxxx [id number] 2017 Unknown [id number] 1995 Unknown [id number] 2.16.840.1.109090.3.579.2.593 1995 Unknown [id number] 2.16.840.1.815156.3.579.2.732 1995 Unknown [id number] 2.16.840.1.513231.3.579.273 1995 Unknown [id number] 2.16.840.1.870343.3.579.2 1995 Unknown [id number] 2.16.840.1.152328.3.579.2 1995 Unknown [id number] 2.16.840.1.483952.3.579.2 1995 Unknown [id number] 2.16.840.1.719464.3.579.2 1995 Unknown [id number] 2.16.840.1.676982.3.579.2 1995 Unknown [id number] 2.16840.1.127617.3.579.2 1995 Unknown [id number] 2.16840.1.548318.3.579.2 1995 Unknown [id number] 2.16.840.1.451358.3.579.2 1995 Unknown [id number] 2.16.840.1.769893.3.579.2. 1995 Unknown [id number] .16.840.1.785372.3.579.2 1995 Unknown [id number] 2.16.840.1.467704.3.579.2 1995 Unknown [id number] 2.16.840.1.212474.3.579.2 1995 Unknown [id number] 2.16.840.1.141766.3.579.2 1995 Unknown [id number] 2.16.840.1.061487.3.579.2 1995 Unknown [id number] 2.16.840.1.346488.3.579.2 1995 Unknown [id number] .16.840.1.767977.3.579.2 1995 Unknown [id number] 2.16.840.1.962829.3.579.2 1995 Unknown [id number] .16840.1.916628.3.579.2 1995 Unknown [id number] 2.16.840.1.450575.3.579.2 1995 Unknown [id number] .16840.1.932569.3.579. 1995 Unknown [id number] 2.16840.1.200589.3.579.2 1995 Unknown [id number] .16840.1.300747.3.579. 1995 Unknown [id number] 2.16840.1.372405.3.579. 1995 Unknown [id number] .16840.1.585731.3.579.2 1995 Unknown [id number] .16840.1.229403.3.579.2 1995 Unknown [id number] 16840.1.441786.3.579.2 1995 Unknown [id number] 16840.1.918835.3.579.2 1995 Unknown [id number] .16840.1.316609.3.579.2 1995 Unknown [id number] 2.16.840.1.876030.3.579.2 1995 Unknown [id number] .16.840.1.637691.3.579.2.72 1995 Unknown [id number] 2.16.840.1.066560.3.579.2 1995 Unknown [id number] 2.16.840.1.597342.3.579.2 1995 Unknown [id number] 2.16.840.1.064822.3.579.2 1995 Unknown [id number] 2.16840.1.411477.3.579.2 1995 Unknown [id number] 2.16840.1.841861.3.579.2 1995 Unknown [id number] 2.16840.1.260983.3.579.2 1995 Unknown [id number] 2.16840.1.813654.3.579.2 1995 Unknown [id number] 2.16840.1.050924.3.579.2 1995 Unknown [id number] 2.16840.1.367912.3.579.2 1995 Unknown [id number] 2.16840.1.622304.3.579.2 1995 Unknown [id number] 2.16840.1.007545.3.579.2 1995 Unknown [id number] 2.16840.1.877237.3.579.2 1995 Unknown [id number] 2.16840.1.752746.3.579.2 1995 Unknown [id number] 2.16840.1.356307.3.579.29 1995 Unknown [id number] 2.16840.1.862699.3.579.2 1995 Unknown [id number] 2.16840.1.373422.3.579.2.727 1995 Unknown [id number] 2.16.840.1.205841.3.579.2.727 1995 Unknown [id number] 2.16.840.1.164474.3.579.2.727 1995 Unknown [id number] 2.16.840.1.832237.3.579.2.727 1995 Unknown [id number] 2.16.840.1.865895.3.579.2.727 1995 Unknown [id number] 2.16.840.1.167869.3.579.2.727 1995 Unknown [id number] 2.16.840.1.100986.3.579.2.174 1959 Unknown [id number] Unknown [id number] 2.16.840.1.265021.3.579.2.531 Social History Date Type Detail Facility Start: 08-10-2020 End: 01-18-2023 Tobacco smoking status NHIS Former smoker [facility] Start: 01-23-2017 End: 01-23-2019 History of tobacco use Current smoker [place] Start: 01-23-2017 End: 01-23-2019 History of tobacco use Cigarette [place]oker [place] Start: 08-10-2020 End: 07-04-2023 Cigarettes smoked current (pack per day) - Reported [facility] Start: 08-10-2020 End: 01-18-2023 Tobacco use and exposure Never used [place] Start: 08-10-2020 End: 12-25-2024 Alcohol intake Current non-drinker of alcohol (finding) [place] Start: 1995 Sex Assigned At Not on file M [place] Start: 12-14-2022 End: 12-24-2022 Exposure to SARS-CoV-2 (event) Not sure [place] Exposure to SARS-CoV -2 (event) Unable to assess [place] Tobacco smoking status Never [facility] Start: 03-05-2023 End: 07-04-2023 Sex Assigned At Female [facility] Start: 12-24-2022 History SDOH Alcohol Frequency 3 [facility] [employer] Work Phone: Start: 12-24-2022 History SDOH Alcohol Std Drinks 1 [facility] [employer] Work Phone: Start: 01-18-2023 End: 04-29-2023 Alcohol intake Current drinker of alcohol (finding) [facility] Start: 01-18-2023 Tobacco Comment 3 per day [facility] Start: 08-20-2018 Alcohol Comment 1 per week [facility] Start: 1995 Sex Assigned At Female [facility] Start: 12-19-2020 Gender identity Identifies as female gender (finding) [facility] Start: 12-19-2020 Sexual orientation Choose not to dis close [facility] Tobacco [facility] Comment on above: Denies Tobacco smoking status [facility] Tobacco smoking consumption unknown [facility] Start: 07-04-2023 End: 12-24-2024 Alcohol intake Ex-drinker (finding) [facility] Start: 02-13-2023 [facility] Start: 11-02-2012 End: 11-24-2024 Sex Female (finding) [facility] Has the [employer], oil, or water company threatened to shut off services in your home in past 12Mo No [facility] Work Phone: (I/We) worried erwin er (my/our) food would run out before (I/we) got money to buy more. Never true [facility] How often to you hav e a drink containing alcohol? Never [employer] [facility] Goals Date Patient Goal Desired Activity /State Personal health goal Personal health goal Functional Status Date Assessment Result Facility 12-23-2024 Functional Status N[facility] 12-18-2024 Are you deaf, or do you have serious difficulty hearing No 12/18/2024 4:33 PM Maddie Oliver RN No [facility] 12-18-2024 Are you blind, or do you have serious difficulty seeing, even when wearing glasses No 12/18/2024 4:33 PM EDT Maddie Wang, RN No [facility] 12-18-2024 Do you have serious difficulty walking or climbing stairs No 12/18/2024 4:33 PM EDT Maddie Wang, RN No [facility] 12-18-2024 Do you have difficul ty dressing or bathing No 12/18/2024 4:33 PM EDT Maddie Wang, RN No [facility] 12-16-2024 Functional Status N/A [facility] 12-15-2024 Functional Status N/A [facility] 12-12-2024 Functional Status N/A [facility] 12-09-2024 Functional Status N/A [facility] 11-22-2024 Functional Status No [facility] 11-22-2024 Functional Status [facility] 11-14-2024 Functional Status N/A [facility] 10-02-2024 Functional Status N/A [facility] 07-13-2024 Functional Status N/A [facility] 06-30-2024 Functional Status N/A [facility] 04-08-2024 Functional Status N/A [facility] 03-08-2024 Functional Status N/A [facility] 03-04-2024 Functional Status N/A [facility] 01-20-2024 Are you deaf, or do you have serious difficulty hearing No 01/20/2024 5:14 PM EDT Yfn Jernigan, SHAHBAZ No [facility] 01-20-2024 Are you blind, or do you have serious difficulty seeing, even when wearing glasses No 01/20/2024 5:14 PM EDT Yfn Jernigan, SHAHBAZ No [facility] 01-20-2024 Do you have serious difficulty walking or climbing stairs No 01/20/2024 5:14 PM EDT Yfn Jernigan, RN No [facility] 01-20-2024 Do you have difficul ty dressing or bathing No 01/20/2024 5:14 PM EDT Ynf Jernigan, RN No [facility] 01-20-2024 Because of a physica l, mental, or emotional condition, do you have difficulty doing errands alone such as visiting a physician's office or shopping No 01/20/2024 5:14 PM EDT Yfn Jernigan RN No [facility] 12-21-2023 Functional Status N/[facility] 12-07-2023 Functional Status N/A [facility] 09-06-2023 Functional Status N/A [facility] 09-06-2023 Functional Status N/A [facility] 05-25-2023 Functional Status N/A [facility] 04-26-2023 Functional Status N/A [facility] 04-14-2023 Functional Status N/A [facility] 03-10-2023 Functional Status N/A [facility] 01-25-2023 Functional Status N/A [facility] 01-13-2023 Functional Status N/A [facility] 01-09-2023 Functional Status N/A [facility] 09-29-2022 Functional Status N/A [facility] 05-30-2022 Functional Status N/A [facility] Mental Status Date Assessment Result Facility 12-18-2024 Because of a physica l, mental, or emotional condition, do you have serious difficulty concentrating, remembering, or making decisions No 12/18/2024 4:33 PM EDT Maddie Wang RN No [facility] 01-20-2024 Because of a physica l, mental, or emotional condition, do you have serious difficulty concentrating, remembering, or making decisions No 01/20/2024 5:14 PM EDT Yfn Jernigan RN No [facility] Clinical Notes 09-11-2018 to 12-25-2024 Discharge Instr - MinachItalia Timmons RN - 12/25/2024 8:50 PM EDTTceci Montague - Michael Cheema APRN.MANAGER STORAGE - 12/25/2024 12:30 PM EDTMichael Cheema APRN.JIMMY - 12/24/2024 7:40 AM EDT Note Date & Type Note Facility 12-25-2024 Hospital Discharg philipp Italia Oro RN - 12/25/2024 8:51 PM EDT Continuity of Care Form Patient Name: Rola Aguilar : 1995 Admit date: 12/25/2024 Discharge date: Code Status Order: Prior Advance Directives: Admitting Physician: No admitting provider for patient encounter. PCP: No primary care provider on file. Discharging Nurse: Discharging Hospital Unit/Room#: 02/26 Discharging Unit Phone Number: Emergency Contact: Extended Emergency Contact Information Primary Emergency Contact: Rashi Deluca Address: * [address] Relation: Parent Past Surgical History: Past Surgical History: Procedure Laterality Date COLONOSCOPY ILEOSTOMY OR JEJUNOSTOMY 09/11/2018 UPPER GASTROINTESTINAL ENDOSCOPY Immunization History: Immunization History Administered Date(s) Administered COVID-19, PFIZER PURPLE top, DILUTE for use, (age 12 y+), 30mcg/0.3mL 01/18/2021, 02/08/2021 Active Problems: Patient Active Problem List Diagnosis Code Colitis, 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 Isolation/Infection: Isolation No Isolation Patient Infection Status None to display Nurse Assessment: Last Vital Signs: BP 110/82 Pulse (!) 115 Temp 98.2 F (36.8 C) (Oral) Resp 18 Ht 1.676 m (5' 6 ) Wt 52.6 kg (116 lb) LMP 07/02/2024 (Approximate) SpO2 99% BMI 18.72 kg/m Last documented pain score (0-10 scale): Pain Level: 5 Last Weight: Wt Readings from Last 1 Encounters: 12/25/24 52.6 kg (116 lb) Mental Status: {IP PT MENTAL STATUS:} IV Access: { JUSTEN IV ACCESS:582532995} Nursing Mobility/ADLs: Walking {CHP DME ADLs:801474815} Transfer {CHP DME ADLs:815274644} Bathing {CHP DME ADLs:054540167} Dressing {CHP DME ADLs:858864851} Toileting {CHP DME ADLs:586584310} Feeding {CHP DME ADLs:653667921} Rn Examiner {CHP DME ADLs:259722495} Med Delivery { JUSTEN MED Delivery:303547208} Wound Care Documentation and Therapy: Elimination: Continence: Bowel: {YES / NO:} Bladder: {YES / NO:} Urinary Catheter: {Urinary Catheter:814375089} Colostomy/Ileostomy/Ileal Conduit: {YES / NO:} Date of Last BM: No intake or output data in the 24 hours ending 12/25/242050 No intake/output data recorded. Safety Concerns: { JUSTEN Safety Concerns:319248478} Impairments/Disabilities: { JUSTEN Impairments/Disabilities:4576336 73} Nutrition Therapy: Current Nutrition Therapy: { JUSTEN Diet List:587206905} Routes of Feeding: {[facility] DME Other Feedings:459925724} Liquids: {[facility] liquid thickness:62512} Daily Fluid Restriction: {CHP DME Yes amt example:873538258} Last Modified Barium Swallow with Video (Video Swallowing Test): {Done Not Done Date:} Treatments at the Time of Hospital Discharge: Respiratory Treatments: Oxygen Therapy: {Therapy; copd oxygen:21310} Ventilator: {[facility] Vent List:[id number]} Rehab Therapies: {THERAPEUTIC INTERVENTION:2863882264} Weight Bearing Status/Restrictions: {[facility] Weight Bearin} Other Medical Equipment (for information only, NOT a DME order): {EQUIPMENT:428367698} Other Treatments: Patient's personal belongings (please select all that are sent with patient): {[facility] DME Belongings:341518731} RN SIGNATURE: {Esignature:[id number]} CASE MANAGEMENT/SOCIAL WORK SECTION Inpatient Status Date: Readmission Risk Assessment Score: [facility] RISK OF UNPLANNED READMISSION 2.0 0 Total Score Discharging to Facility/ Agency Name: Address: Phone: Fax: Dialysis Facility (if applicable) Name: Address: Dialysis Schedule: Phone: Fax: Laborer Operator/Photo Producer signature: {Esignature:[id number]} PHYSICIAN SECTION Prognosis: {Prognosis:0914539673} Condition at Discharge: { Patient Condition:599277863} Rehab Potential (if transferring to Rehab): {Prognosis:1847415681} Recommended Labs or Other Treatments After Discharge: Physician Certification: I certify the above information and transfer of Rola Aguilar is necessary for the continuing treatment of the diagnosis listed and that she requires {Admit to Appropriate Level of Care:48595} for {GREATER/LESS:138679030} 30 days. Update Admission H&P: {[facility] DME Changes in HandP:821345112} PHYSICIAN SIGNATURE: {Esignature:[id number]} The following attachments cannot be sent through Care Everywhere.Crohn's Disease (Honduran)documented in this encounter [facility] 12-25-2024 History of Presen t illness Narrative TO go script - two percocet - scanned and sent with patient. documented in this encounter [facility] 12-25-2024 Telephone encounter Note [employer], Could you take a look at this patient. Her surgery is 18 do you have any recommendations for her? Thank you! Michael Cheema APRN.MANAGER STORAGE [facility] 12-25-2024 Miscellaneous Notes [employer], Could you take a look at this patient. Her surgery is 18 do you have any recommendations for her? Thank you! Michael Cheema APRN.MANAGER STORAGE documented in this encounter [facility] 12-24-2024 History and physical note HISTORY AND PHYSICAL EXAMINATION SERVICE DATE: 12/24/2024 SERVICE TIME: 7:42 AM PRIMARY CARE PHYSICIAN: No primary care provider on file. REASON FOR VISIT: Rola Aguilar is a 29 year old female who is scheduled for COLECTOMY ABDOMINAL W/ PROCTECTOMY W/ ILEOSTOMY at the request of Dr. Shaq Thakkar for consultation. My final recommendation will be communicated back to the requesting physician by way of shared medical record or letter. Assessment Patient has the following medical conditions which may affect cele-operative course: Anemia Assessment: Chronic d/t Chron's CBC with iron studies ordered today Has had blood transfusion in the past ~ 5 years ago Hemoglobin (g/dL) Date Value 12/18/2024 8.6 12/17/2024 10.4 01/19/2024 10.2 01/24/2021 12.9 01/21/2021 12.1 12/22/2020 12.3 Generalized seizures (HCC) Assessment: New onset in the beginning of November She reports having 5 grand mal seizures Magnesium was found to be very low- replaced in hospital and started on oral as tolerated Was taken to ED intubated for airway protection Started on Keppra 500 mg BID No seizures since starting medication Saw Neurology Magdalene Boyle on 12/15 Per her Ov Note: MRI revealed mild changes thought to be related to seizure activity with recommendations to update brain MRI with and without contrast in 2-4 weeks. She had an LP that was negative for infectious cause and NMDA receptor antibodies negative. Continuous video EEG did not reveal any seizure activity. She was started on Keppra 500mg PO BID. Ileostomy in place (HCC) Assessment: Ileostomy in place Following with GI Upcoming procedure Perineal abscess Assessment: s/p seton placement 12/18/2024 Oxycodone as needed for pain Upcoming procedure Anxiety and depression Assessment: Controlled with buspirone ANESTHESIA FINDINGS: Intubation History: No history of difficult intubation Significant Anesthesia Considerations: none Airway History: No history of difficult airway [place] Activity Status Index: METS: Walk indoors, such as around the house (1.75 METs) Do light work around the house, such as dusting or washing dishes (2.70 METs) Take care of self; that is eating, dressing, bathing, using the toilet (2.75 METs) Walk a block or two on level ground (2.75 METs) Do moderate work around the house, such as vacuuming, sweeping floors, or carrying in groceries (3.50 METs) Climb a flight of stairs or walk up a hill (5.50 METs) DASI Score: 18.95 Patient denies any chest pain or undue shortness of breath with the above physical activity. STOP-Bang Score: Denies snoring loudly Denies feeling tired, fatigued, or sleepy during the daytime Has not been observed to stop breathing or choking/gasping during sleep Denies having high blood pressure BMI less than or equal to 35 kg/m^2 Patient 50 years old or younger Does not have a large neck Non-male patient STOP-Bang Score: 0 [id number] Score: Age: <65 Sex: female CHF history: No Hypertension history: No Stroke/TIA/thromboembolism history: No Vascular disease history: No Diabetes history: No [id number] Score: 1 ARISCAT Score: Age: <=50 Preoperative SpO2: >=96% Respiratory infection in the last month: No Preoperative anemia: No Duration of surgery: >3 hrs Emergency procedure: No ARISCAT Score: 23 I - PHYSICAL EVALUATION AIRWAY Patient intubated: No. Tracheostomy tube not present Mallampati: I. TM distance: >3 FB. Neck ROM: full ROM without neurological symptoms. Mouth opening: adequate. Short neck: no. Thick neck: no Lip Bite Test: I Microretrognathia/Micronagthia/R ecessed Chin: No DENTAL Dental findings: missing tooth/teeth and poor dentition. II - ANESTHESIA PLAN Beta Olena Monitoring Plan Post Procedure Analgesic Plan Prepared for surgery: This patient is optimally prepared for surgery pending LABS and EKG. CONSULTS: Patient does not require consults for optimization at this time. The Following Tests/Procedures Have Been Initiated: Orders Placed This Encounter Iron and TIBC Standing Status: Future Number of Occurrences: 1 Expected Date: 12/24/2024 Expiration Date: 03/25/2025 Ferritin Standing Status: Future Number of Occurrences: 1 Expected Date: 12/24/2024 Expiration Date: 03/25/2025 Scheduling Instructions: In preparation for this test, do not take multivitamins or dietary supplements containing biotin (vitamin B7) for at least 12 hours. Biotin is commonly found in hair, skin, and nail supplements and multivitamins. Tell your doctor if you take supplements containing biotin as part of your medication history. ECG (IN OFFICE) Planned Anesthetic: Per anesthesia choice Subjective CHIEF COMPLAINT: Chron's Disease HPI: 29 year old year old Female presents to [facility] for evaluation. Patient is s/p Incision and drainage of perianal abscess and Placement of ariana through fistula tract on 07/23/24 for a history of crohn's disease, perianal abscess and fistula. She has severe cele-anal Crohn's and Crohn's colitis. She has a very poor QOL and is now requesting total proctocolectomy with permanent ileostomy. Has elected for surgical intervention PAST MEDICAL HISTORY Diagnosis Date Crohn's disease [...] Lymphoma Mother NON hodgkin Colon Cancer Other Difficulty with anesthesia No Family History SOCIAL HISTORY: Social History Tobacco Use Smoking status: Former Current packs/day: 0.50 Types: Cigarettes Smokeless tobacco: Never Tobacco comments: 3 per day Vaping Use Vaping status: Never Used Substance Use Topics Alcohol use: Not Currently Comment: 1 per week Drug use: No Prior to Admission medications as of 12/24/24 0805 Medication Sig Last Dose Taking oxyCODONE IR (ROXICODONE) 5 mg immediate release tablet Take 1 tablet by mouth every 6 hours as needed for up to 7 days. Yes amoxicillin-clavulanate potassium (AUGMENTIN) 875-125 mg per tablet Take 1 tablet by mouth every 12 hours for 7 days. Yes busPIRone (BUSPAR) 10 mg tablet Take 10 mg by mouth three times a day. Yes levETIRAcetam (KEPPRA) 500 mg tablet Take 500 mg by mouth two times a day. Yes Magnesium 200 mg tab Take 200 mg by mouth once daily. Yes dicyclomine HCl (BENTYL ORAL) Yes KEPPRA 250 mg tablet Take 500 mg by mouth. Yes ondansetron orally disintegrating (ZOFRAN ODT) 4 mg disintegrating tablet take 1 tablet by mouth every 8 hours as needed for nausea and vomiting Yes promethazine (PHENERGAN) 25 mg tablet Take 25 mg by mouth. Yes busPIRone (BUSPAR) 10 mg tablet Yes metroNIDAZOLE (FLAGYL) 500 mg tablet Take 1 tablet by mouth three times a day. Take 1 tablet at 6pm, 7pm, and 11pm, the evening prior to surgery. Yes neomycin 500 mg tablet Take 2 tablets by mouth as directed. Take 2 tablet at 6pm, 7pm, and 11pm the evening prior to surgery. Yes acetaminophen (TYLENOL) 500 mg tablet Take 2 tablets by mouth every 6 hours. vedolizumab (ENTYVIO PEN) 108 mg/0.68 mL pen Inject 108mg (1 pen) subcutaneously every other week. vedolizumab (ENTYVIO PEN) 108 mg/0.68 mL pen Inject 108 mg (1 pen) subcutaneously every other week. No medication comments found. ALLERGIES Allergen Reactions Hydromorphone Itching Covid Immunization Dates Current Care Gaps Covid-19 Vaccine () Overdue since 05/24/2024 02/08/2021 Imm Admin: COVID-19 original vaccine, age 12+ yr, monovalent ([employer] [facility]) 01/18/2021 Imm Admin: COVID-19 original vaccine, age 12+ yr, monovalent ([employer] [facility]) REVIEW OF SYSTEMS: PAIN ASSESSMENT: Pain Pain Level: 7 Pain Location: Rectum Description: Cramping, Stabbing Duration Units: Years Frequency: Continuous General: No weight loss, malaise or fevers. Neuro: Negative for Stroke-residual deficit Stroke-No residual deficit Parkinson's Disease +Seizures Respiratory: No history of current cough or dyspnea, or pneumonia in the past 6 weeks. No history of respiratory/pulmonary symptoms or problems. 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 : Denies, Patient's last menstrual period was 06/29/2024 (approximate). Endocrine: No history of diabetes. Has not taken steroids within the past 30 days. No history of endocrinological symptoms or problems. Hematology: Iron deficiency anemia Oncology: No history of CA metastasis, chemo within 30 days, or radiotherapy within 90 days. Has not lost 10% of body wt in 6 months. No history of oncological symptoms or problems. Psych: Anxiety, Bipolar disorder Musculoskeletal: +Pain in legs Skin: Negative for lesions, rash and itching. +Perianal abscess s/p seton placement +Loop illiostomy right abdom Objective PHYSICAL EXAM: VITALS: BP 106/74 Pulse 101 Temp (Src) 98.1 (Oral) Resp 16 Ht 5' 6 (1.68m) Wt 119 lb 0.8 oz (54.0kg) SpO2 98% LMP 06/29/2024 BMI 19.22 kg/(m^2). General: Alert and oriented Skin: Normal color, no rash, no lesions. HEENT: EOM, pupils equal, round and reactive. Cardiovascular: Normal S1 & S2, no rubs, murmurs or gallops. No JVD. Pulse regular. Lungs: Normal breath sounds, no wheezes or crackles. Abdomen: Soft, non-tender, no rigidity. Extremities: No deformity, no edema or tenderness, no joint swelling or clubbing. Neurological: Normal cognition and motor skills. Pulses: Carotid and radial pulses normal +2. Diagnostic tests reviewed for today's visit: Lab Value Units Date High Low HB 8.6 g/dL 12/18/2024 15.5 11.5 HCT 28.1 % 12/18/2024 46.0 36.0 WBC 7.78 k/uL 12/18/2024 11.00 3.70 PLT 502 k/uL 12/18/2024 400 150 NA 137 mmol/L 12/18/2024 144 136 K 3.6 mmol/L 12/18/2024 5.1 3.7 GLUC 90 mg/dL 12/18/2024 99 74 BUN 5 mg/dL 12/18/2024 21 7 CREAT 0.75 mg/dL 12/18/2024 0.96 0.58 PTSEC No results within date range. INR No results within date range. APTT No results within date range. ALT 7 U/L 12/17/2024 38 7 AST 13 U/L 12/17/2024 35 13 TBILI 0.3 mg/dL 12/17/2024 1.3 0.2 TSH No results within date range. Recent Results (from the past 8760 hours) ECG COMPLETE Collection Time: 01/18/24 7:57 AM Result Value Ventricular Rate 79 Atrial Rate 79 P-R Interval 160 QRS Duration 106 QT Interval 379 QTC Calculation (Bazett) 435 Calculated P [place] 36 Calculated R [place] 52 Calculated T [place] -4 Impression Sinus rhythm RSR' in V1 or V2, probably normal variant Borderline T abnormalities, inferior leads Borderline ECG Confirmed by MARGIE AGUIRRE MD ([id number]) on 01/27/2024 12:00:17 PM Instructions Given to Patient: Instructions located in the after visit summary. Patient given verbal and written preop instructions and voices comprehension and compliance. SIGNATURE: Michael Cheema APRN.CNP PATIENT NAME: Rola Aguilar DATE: 12/24/2024 TIME: 7:42 AM T [facility] 12-24-2024 History and physical note HISTORY AND PHYSICAL EXAMINATION SERVICE DATE: 12/24/2024 SERVICE TIME: 7:42 AM PRIMARY CARE PHYSICIAN: No primary care provider on file. REASON FOR VISIT: Rola Aguilar is a 29 year old female who is scheduled for COLECTOMY ABDOMINAL W/ PROCTECTOMY W/ ILEOSTOMY at the request of Dr. Shaq Thakkar for consultation. My final recommendation will be communicated back to the requesting physician by way of shared medical record or letter. Assessment Patient has the following medical conditions which may affect cele-operative course: Anemia Assessment: Chronic d/t Chron's CBC with iron studies ordered today Has had blood transfusion in the past ~ 5 years ago Hemoglobin (g/dL) Date Value 12/18/2024 8.6 12/17/2024 10.4 01/19/2024 10.2 01/24/2021 12.9 01/21/2021 12.1 12/22/2020 12.3 Generalized seizures (HCC) Assessment: New onset in the beginning of November She reports having 5 grand mal seizures Magnesium was found to be very low- replaced in hospital and started on oral as tolerated Was taken to ED intubated for airway protection Started on Keppra 500 mg BID No seizures since starting medication Saw Neurology Magdalene Boyle on 12/15 Per her Ov Note: MRI revealed mild changes thought to be related to seizure activity with recommendations to update brain MRI with and without contrast in 2-4 weeks. She had an LP that was negative for infectious cause and NMDA receptor antibodies negative. Continuous video EEG did not reveal any seizure activity. She was started on Keppra 500mg PO BID. Ileostomy in place (HCC) Assessment: Ileostomy in place Following with GI Upcoming procedure Perineal abscess Assessment: s/p seton placement 12/18/2024 Oxycodone as needed for pain Upcoming procedure Anxiety and depression Assessment: Controlled with buspirone ANESTHESIA FINDINGS: Intubation History: No history of difficult intubation Significant Anesthesia Considerations: none Airway History: No history of difficult airway [place] Activity Status Index: METS: Walk indoors, such as around the house (1.75 METs) Do light work around the house, such as dusting or washing dishes (2.70 METs) Take care of self; that is eating, dressing, bathing, using the toilet (2.75 METs) Walk a block or two on level ground (2.75 METs) Do moderate work around the house, such as vacuuming, sweeping floors, or carrying in groceries (3.50 METs) Climb a flight of stairs or walk up a hill (5.50 METs) DASI Score: 18.95 Patient denies any chest pain or undue shortness of breath with the above physical activity. STOP-Bang Score: Denies snoring loudly Denies feeling tired, fatigued, or sleepy during the daytime Has not been observed to stop breathing or choking/gasping during sleep Denies having high blood pressure BMI less than or equal to 35 kg/m^2 Patient 50 years old or younger Does not have a large neck Non-male patient STOP-Bang Score: 0 [id number] Score: Age: <65 Sex: female CHF history: No Hypertension history: No Stroke/TIA/thromboembolism history: No Vascular disease history: No Diabetes history: No [id number] Score: 1 ARISCAT Score: Age: <=50 Preoperative SpO2: >=96% Respiratory infection in the last month: No Preoperative anemia: No Duration of surgery: >3 hrs Emergency procedure: No ARISCAT Score: 23 I - PHYSICAL EVALUATION AIRWAY Patient intubated: No. Tracheostomy tube not present Mallampati: I. TM distance: >3 FB. Neck ROM: full ROM without neurological symptoms. Mouth opening: adequate. Short neck: no. Thick neck: no Lip Bite Test: I Microretrognathia/Micronagthia/R ecessed Chin: No DENTAL Dental findings: missing tooth/teeth and poor dentition. II - ANESTHESIA PLAN Beta Olena Monitoring Plan Post Procedure Analgesic Plan Prepared for surgery: This patient is optimally prepared for surgery pending LABS and EKG. CONSULTS: Patient does not require consults for optimization at this time. The Following Tests/Procedures Have Been Initiated: Orders Placed This Encounter Iron and TIBC Standing Status: Future Number of Occurrences: 1 Expected Date: 12/24/2024 Expiration Date: 03/25/2025 Ferritin Standing Status: Future Number of Occurrences: 1 Expected Date: 12/24/2024 Expiration Date: 03/25/2025 Scheduling Instructions: In preparation for this test, do not take multivitamins or dietary supplements containing biotin (vitamin B7) for at least 12 hours. Biotin is commonly found in hair, skin, and nail supplements and multivitamins. Tell your doctor if you take supplements containing biotin as part of your medication history. ECG (IN OFFICE) Planned Anesthetic: Per anesthesia choice Subjective CHIEF COMPLAINT: Chron's Disease HPI: 29 year old year old Female presents to [facility] for evaluation. Patient is s/p Incision and drainage of perianal abscess and Placement of ariana through fistula tract on 07/23/24 for a history of crohn's disease, perianal abscess and fistula. She has severe cele-anal Crohn's and Crohn's colitis. She has a very poor QOL and is now requesting total proctocolectomy with permanent ileostomy. Has elected for surgical intervention PAST MEDICAL HISTORY Diagnosis Date Crohn's disease [...] Lymphoma Mother NON hodgkin Colon Cancer Other Difficulty with anesthesia No Family History SOCIAL HISTORY: Social History Tobacco Use Smoking status: Former Current packs/day: 0.50 Types: Cigarettes Smokeless tobacco: Never Tobacco comments: 3 per day Vaping Use Vaping status: Never Used Substance Use Topics Alcohol use: Not Currently Comment: 1 per week Drug use: No Prior to Admission medications as of 12/24/24 0805 Medication Sig Last Dose Taking oxyCODONE IR (ROXICODONE) 5 mg immediate release tablet Take 1 tablet by mouth every 6 hours as needed for up to 7 days. Yes amoxicillin-clavulanate potassium (AUGMENTIN) 875-125 mg per tablet Take 1 tablet by mouth every 12 hours for 7 days. Yes busPIRone (BUSPAR) 10 mg tablet Take 10 mg by mouth three times a day. Yes levETIRAcetam (KEPPRA) 500 mg tablet Take 500 mg by mouth two times a day. Yes Magnesium 200 mg tab Take 200 mg by mouth once daily. Yes dicyclomine HCl (BENTYL ORAL) Yes KEPPRA 250 mg tablet Take 500 mg by mouth. Yes ondansetron orally disintegrating (ZOFRAN ODT) 4 mg disintegrating tablet take 1 tablet by mouth every 8 hours as needed for nausea and vomiting Yes promethazine (PHENERGAN) 25 mg tablet Take 25 mg by mouth. Yes busPIRone (BUSPAR) 10 mg tablet Yes metroNIDAZOLE (FLAGYL) 500 mg tablet Take 1 tablet by mouth three times a day. Take 1 tablet at 6pm, 7pm, and 11pm, the evening prior to surgery. Yes neomycin 500 mg tablet Take 2 tablets by mouth as directed. Take 2 tablet at 6pm, 7pm, and 11pm the evening prior to surgery. Yes acetaminophen (TYLENOL) 500 mg tablet Take 2 tablets by mouth every 6 hours. vedolizumab (ENTYVIO PEN) 108 mg/0.68 mL pen Inject 108mg (1 pen) subcutaneously every other week. vedolizumab (ENTYVIO PEN) 108 mg/0.68 mL pen Inject 108 mg (1 pen) subcutaneously every other week. No medication comments found. ALLERGIES Allergen Reactions Hydromorphone Itching Covid Immunization Dates Current Care Gaps Covid-19 Vaccine ( season) Overdue since 05/24/2024 02/08/2021 Imm Admin: COVID-19 original vaccine, age 12+ yr, monovalent ([employer] [facility]) 01/18/2021 Imm Admin: COVID-19 original vaccine, age 12+ yr, monovalent ([employer] [facility]) REVIEW OF SYSTEMS: PAIN ASSESSMENT: Pain Pain Level: 7 Pain Location: Rectum Description: Cramping, Stabbing Duration Units: Years Frequency: Continuous General: No weight loss, malaise or fevers. Neuro: Negative for Stroke-residual deficit Stroke-No residual deficit Parkinson's Disease +Seizures Respiratory: No history of current cough or dyspnea, or pneumonia in the past 6 weeks. No history of respiratory/pulmonary symptoms or problems. 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 : Denies, Patient's last menstrual period was 06/29/2024 (approximate). Endocrine: No history of diabetes. Has not taken steroids within the past 30 days. No history of endocrinological symptoms or problems. Hematology: Iron deficiency anemia Oncology: No history of CA metastasis, chemo within 30 days, or radiotherapy within 90 days. Has not lost 10% of body wt in 6 months. No history of oncological symptoms or problems. Psych: Anxiety, Bipolar disorder Musculoskeletal: +Pain in legs Skin: Negative for lesions, rash and itching. +Perianal abscess s/p seton placement +Loop illiostomy right abdom Objective PHYSICAL EXAM: VITALS: BP 106/74 Pulse 101 Temp (Src) 98.1 (Oral) Resp 16 Ht 5' 6 (1.68m) Wt 119 lb 0.8 oz (54.0kg) SpO2 98% LMP 06/29/2024 BMI 19.22 kg/(m^2). General: Alert and oriented Skin: Normal color, no rash, no lesions. HEENT: EOM, pupils equal, round and reactive. Cardiovascular: Normal S1 & S2, no rubs, murmurs or gallops. No JVD. Pulse regular. Lungs: Normal breath sounds, no wheezes or crackles. Abdomen: Soft, non-tender, no rigidity. Extremities: No deformity, no edema or tenderness, no joint swelling or clubbing. Neurological: Normal cognition and motor skills. Pulses: Carotid and radial pulses normal +2. Diagnostic tests reviewed for today's visit: Lab Value Units Date High Low HB 8.6 g/dL 12/18/2024 15.5 11.5 HCT 28.1 % 12/18/2024 46.0 36.0 WBC 7.78 k/uL 12/18/2024 11.00 3.70 PLT 502 k/uL 12/18/2024 400 150 NA 137 mmol/L 12/18/2024 144 136 K 3.6 mmol/L 12/18/2024 5.1 3.7 GLUC 90 mg/dL 12/18/2024 99 74 BUN 5 mg/dL 12/18/2024 21 7 CREAT 0.75 mg/dL 12/18/2024 0.96 0.58 PTSEC No results within date range. INR No results within date range. APTT No results within date range. ALT 7 U/L 12/17/2024 38 7 AST 13 U/L 12/17/2024 35 13 TBILI 0.3 mg/dL 12/17/2024 1.3 0.2 TSH No results within date range. Recent Results (from the past 8760 hours) ECG COMPLETE Collection Time: 01/18/24 7:57 AM Result Value Ventricular Rate 79 Atrial Rate 79 P-R Interval 160 QRS Duration 106 QT Interval 379 QTC Calculation (Bazett) 435 Calculated P [place] 36 Calculated R [place] 52 Calculated T [place] -4 Impression Sinus rhythm RSR' in V1 or V2, probably normal variant Borderline T abnormalities, inferior leads Borderline ECG Confirmed by MARGIE AGUIRRE MD ([id number]) on 01/27/2024 12:00:17 PM Instructions Given to Patient: Instructions located in the after visit summary. Patient given verbal and written preop instructions and voices comprehension and compliance. SIGNATURE: Michael Cheema APRN.CNP PATIENT NAME: Rola Aguilar DATE: 12/24/2024 TIME: 7:42 AM documented in this encounter [facility] 12-24-2024 Note Microbiology PROCEDURE: Blood Culture Charcoal [R1] SOURCE: Blood BODY SITE: Hand R COLLECTED DATE/TIME: 12/16/2024 22:49 EDT RECEIVED DATE/TIME: 12/16/2024 23:05 EDT START DATE/TIME: 12/16/2024 23:06 EDT FREE TEXT SOURCE: Peripheral vein site #2 Nellie Hinkle PA-C, PA-C, Rachel L. FINAL REPORTS Final Report [] Verified Date/Time: 12/24/2024 00:00 EDT No growth at 7 days. Performing Locations R1: [facility] performed at[facility], [address] [place] [address], [address] [place] [address], [facility] Comment on above: Performed By: #### [id number] #### [facility] [address] [place] [address] 12-24-2024 Note Microbiology PROCEDURE: Blood Culture Charcoal [R1] SOURCE: Blood BODY SITE: Arm L COLLECTED DATE/TIME: 12/16/2024 22:47 EDT RECEIVED DATE/TIME: 12/16/2024 23:07 EDT START DATE/TIME: 12/16/2024 23:07 EDT FREE TEXT SOURCE: Peripheral vein site #1 Nellie Hinkle PA-C, PA-C, Rachel L. FINAL REPORTS Final Report [] Verified Date/Time: 12/24/2024 00:00 EDT No growth at 7 days. Performing Locations R1: This test was performed at: [facility], [address] [place] [address], [address] [place] [address], [facility] Comment on above: Performed By: #### [id number] #### [facility] [address] [place] [address] 12-23-2024 Hospital Discharg e instructions Patient Education 12/23/2024 16:04:03 Anorectal Abscess Anorectal Abscess An abscess is [...] Follow these instructions at home: Medicines Take fdwq-owy-hwsgczo and prescription medicines only as told by [...] and water are not available, use hand head of digital advertising & integration. ?Change your dressing as told by your [...] gone away. Where to find more information [place] [employer]: [email or web address] [...] provider. Document Revised: 05/01/2023 Document Reviewed: 05/01/2023 [employer] Patient Education 2023 [employer]. 12/23/2024 16:04:03 Crohn's Disease Crohn's Disease Crohn's disease is [...] specializes in diseases of the digestive tract (diet tech). How is this treated? There is no [...] Follow these instructions at home: Medicines Take bsxw-qch-dwlmmsx and prescription medicines only as told by [...] provider. Document Revised: 03/15/2022 Document Reviewed: 03/15/2022 [employer] Patient Education 2023 [employer]. Follow Up Care 12/23/2024 12:50:25 With:SRAVANI KAYE Address: [address] [place] [phone] When:12/26/2024 15:34:32 With:SHAQ THAKKAR Address: [address] [place] [address]- Business (1) When:12/26/2024 15:33:58 [facility] 12-23-2024 Note ED Patient Education Note Gastroenterology Anorectal [...] by clogged glands or an infection in: ??? The anus. ??? The area between the anus and the scrotum in males or between the anus and the vagina in females (perineum). What increases the risk? You may be more likely to get this condition if: ??? You are . ??? You have diabetes or an inflammatory bowel disease, such as Crohn's disease. ??? You have had anal sex. ??? You have certain cancers. These include rectal cancer, leukemia, or lymphoma. ??? You have been given medicines to kill cancer cells (chemotherapy). ??? You have cracks in your anus (anal fissures). These cracks may form if you have constipation that lasts for a long time or does not go away. ??? You have a sexually transmitted infection (STI). What are the signs or symptoms? The main symptom of this condition is pain. It may be a throbbing pain that gets worse when you poop. Other symptoms include: ??? Swelling, redness, and pus near the anus. The redness may go beyond the abscess and look like a red streak on the skin. ??? A painful lump or tissue near the anus. ??? Bleeding or pus-like discharge from the area. ??? Fever or night sweats. ??? Weakness and tiredness (fatigue). ??? Constipation or pain when pooping. ??? Pain in the lower part of your stomach. How is this diagnosed? This condition is diagnosed based on your medical history and a physical exam. The exam may include: ??? A digital rectal exam. This is when your health care provider puts a gloved finger into your anus and rectum to look for problems. ??? A vaginal exam. This is when your provider looks at the vagina for problems. ??? Using a tube with a light and camera on the end (scope) to look at the rectum. You may also need tests, such as an MRI or CT scan. How is this treated? Treatment for this condition may include: ??? Incision and drainage of the abscess. This is when an incision is made over the abscess to drain the pus. ??? Medicines. These may include pain medicines, medicine to help you poop (laxatives), stool softeners, or antibiotics. Follow these instructions at home: Medicines ??? Take bwiw-tpz-upofsdn and prescription medicines only as told by your provider. ??? If you were prescribed antibiotics, use them as told by your provider. Do not stop using the antibiotic even if you start to feel better. ??? Ask your provider if the medicine prescribed to you requires you to avoid driving or using machinery. Wound care ??? Follow instructions from your provider about how to take care of your wound. Make sure you: ? Wash your hands with soap and water for at least 20 seconds before and after you change your bandage (dressing). If soap and water are not available, use hand head of digital advertising & integration. ? Change your dressing as told by [...] your provider tells you to do that. ??? If one or more tubes (drains) were placed to drain the pus, be careful not to pull at them. Your provider will tell you how long they need to stay in place. ??? Check your abscess area every day for signs of infection. Check for: ? More redness, swelling, or pain. ? More fluid or blood. ? Warmth. ? Pus or a bad smell. Managing pain, stiffness, and swelling ??? To help with pain, try sitting: ? On a heating pad with the setting on low. ? On an inflatable donut-shaped cushion. ??? If told, put ice on the affected area. ? Put ice in a plastic bag. ? Place a towel between your skin and the bag. ? Leave the ice on for 20 minutes, 2?3 times a day. ??? If your skin turns bright red, remove the ice right away to prevent skin damage. The risk of damage is higher if you cannot feel pain, heat, or cold. General instructions ??? Take a sitz bath 3?4 times a day and after you poop. A sitz bath is a shallow, warm water bath that you sit down in. The water should only come up to your hips and should cover your butt. ??? Follow instructions from your provider about what you may eat and drink. ??? Keep all follow-up visits. Your provider may need to remove stitches and make sure that the abscess has gone away. Where to find more information ??? [place] [employer]: [email or web address] Contact a health care provider if: ??? (more content not included)... [facility] 12-23-2024 Evaluation + Plan note Extrac tayler from: Title:ED Note Author:Gary LEDESMA, Gadiel Ramirez te:12/23/24 IBD (inflammatory bowel dise ase) (K52.9: Noninfective gastroenteritis and colitis, unspecified) Perianal abscess (K61.0: Anal abscess) Orders: HYDROmorphone, 0.5 mg = 0.5 mL, Injection, IV Push, Once, Stop date 12/23/24 13:22:00 EDT, STAT, Start date 12/23/24 13:22:00 EDT, 12/23/24 13:22:00 EDT ondansetron, 4 mg = 2 mL, Injection, IV Push, Once, Stop date 12/23/24 13:22:00 EDT, STAT, Start date 12/23/24 13:22:00 EDT, 12/23/24 13:22:00 EDT oxycodone, 5 mg = 1 cap(s), Oral, q6hr, PRN for pain, # 10 cap(s), Refills(s) 0, Pharmacy: [facility]/pharmacy #[id number], 167, cm, 12/23/24 13:00:00 EDT, Height/Length Dosing, 53.2, kg, 12/23/24 13:00:00 EDT, Weight Dosing promethazine, 25 mg = 1 tab(s), Oral, q4hr, # 12 tab(s), Refills(s) 0, Pharmacy: [facility]/pharmacy #[id number], 167, cm, 12/23/24 13:00:00 EDT, Height/Length Dosing, 53.2, kg, 12/23/24 13:00:00 EDT, Weight Dosing Sodium Chloride 0.9% intravenous solution, 1,000 mL, Soln-IV, IV, Once, Stop date 12/23/24 13:23:00 EDT, STAT, Start date 12/23/24 13:23:00 EDT, Infuse over 61, minute(s) Basic Metabolic Panel CBC w/ Auto Diff CT Abdomen/Pelvis w/ Contrast eGFR Extra Blue Tube Extra Tellez Tube Extra SST Tube Hepatic Function Panel Lactic Acid Lipase Level U Beta Hcg Qual UA with Cult Rflx Urine Culture Diagnostic Tests Pending * Urine Culture 12/23/24 [facility] 04-02-2025 Instructions* Patient Instructions* Michael Cheema APRN.MANAGER STORAGE - 12/23/2024 11:23 AM EDT PATIENT PREOPERATIVE INSTRUCTIONS You Surgeon has scheduled you for your procedure at this surgery center: [facility]: [phone] --[id number] [address]. Please check in on the1st floor at registration desk 6. Please read below carefully for your personalized instructions. Dietary Restrictions: - No solid food after midnight. - You may have 12 ounces of clear liquids (water, clear juices such as apple juice or gatorade, carbonated beverages, clear tea, black coffee, jello) until 2 hours before scheduled arrival at facility. -Follow surgeons instructions regarding diet Medications: Unless instructed differently below, stay on all of your medications until your surgery. Approved medications to take the morning of surgery with a sip of water: Kepp & Buspar If you start any new medications after today's visit, please contact the surgeon's office. Blood Thinning Medications: - Stop NSAIDS (Ibuprofen, Advil, Aleve, Motrin, Celebrex, Mobic, etc.) 7 days before surgery, as directed by your surgeon. - Stop Aspirin 7 days before surgery, as directed by your surgeon. - Stop Vitamin E, ALL multi-vitamins, herbals and dietary supplements 7 days before surgery. - You may take Tylenol (Acetaminophen) or any of your pain medications that do not contain aspirin or NSAIDS as needed. Important Reminders: - If you are prescribed inhalers for breathing, continue using them. - Candy, mints, and tobacco products are NOT permitted the morning of surgery. - Hearing aids, dentures and glasses may be worn the morning of surgery. - NO jewelry, body piercings, makeup, hairpins or contacts are to be worn the day of surgery. If you develop symptoms such as a fever, cold, or flu, or have other changes to your health within TWO DAYS of scheduled surgery or the morning of surgery, please contact the surgery center above. Personal Belongings: -Please have photo ID and insurance cards. -If you do not have a copy of advance directives on file with us, please bring a copy with you on the day of surgery. - Leave ALL valuables and money at home or with family members. For Outpatient Procedures: - YOU MUST HAVE A RESPONSIBLE PEDIATRIC DENTAL HYGIENIST TAKE YOU HOME. A WEBBING SEAMER POUND NET OR MANAGER ELECTRICAL CANNOT BE MADE A RESPONSIBLE PEDIATRIC DENTAL HYGIENIST. - We recommend that a responsible person stays with you overnight to take care of you. - You cannot stay in a hotel alone after outpatient surgery. You will not be permitted to have yoursurgery, if you do not have someone to take care of you. Arrival Time for Surgery: - The Surgery Center or hospital where you are having surgery will call the afternoon before surgery (or Saturday for Saturday surgery) with a scheduled arrival time. - If you have not heard by 4 pm, please contact the surgery center above. Please be aware that emergency situations arise, which may delay or change your surgical time. If this happens, we will notify you as soon as possible and regret any inconvenience. If you already have an Advance Directive, please fax a copy to [phone] or email to for it to be added to your chart. If you do not have an Advance Directive, you can find the appropriate form and more information at [email or web address]. We recommend that youcomplete the Advance Directive form found on the website and bring it with you the day of your surgery. It can be witnessed and scanned into your chart that day. Michael Cheema APRN.MANAGER STORAGE [facility] NoteHNO ID: [id number] Author: STEPHANIE CARRION MD Service: Colorectal Author Type: Resident Type: Progress Notes Filed: 12/21/2024 13:05 Note Text: Documentation Query Please clarify the diagnosis associated with the clinical indicators for this patient Provider Response: Hypokalemia This document will become part of the patient's medical record.[facility] 12-18-2024 NoteHNO ID: [id number] Author: ALDO VILLALTA RN Service: Care Management Author Type: Registered Nurse Type: Natacha Mgt Initial Assessment Filed: 12/18/2024 14:53 Note Text: CARE MANAGEMENT: ASSESSMENT AND DISCHARGE PLAN SERVICE DATE: December 18, 2024 SERVICE TIME: 1450 PCP: No primary care provider on file. Primary Contact: No emergency contact information on file. 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 Completion: Yes Action: Education Provided Current Living Arrangements and Support Lives with: Family members, Children Type of Residence: Private Residence (House) Support: Family members How do you manage to accomplish the following: Independent: Ambulation, Bathe/Shower, Dress, Meals/Meal Prep, Going to the bathroom, Medication Management, Transportation to appointments/community Current Services/Equipment Current Post-Acute Service(s): DME Current DME Type: Ostomy supplies Discharge Planning Patient Goal(s): Be able to go home, General wellness [place] of Choice Explained: [place] of Choice Given: No Reason Not Given: No placements necessary Are you interested in bedside delivery of your medications? Yes Discharge Planning Participant(s): Patient Patient/Family Comments: Caregiver Assessment: Caregiver is ready, willing and able to meet the patient's needs as recommended by the inter-professional team: No Caregiver needed Transport at Discharge: Transportation Arrangements: Car Needs Prior to Discharge: Needs Prior to Discharge: None Post-Acute Discharge Plan: Patient admitted for fistula repair. IPTA. No skilled services. Orders her own ostomy supplies. HNN on DC. SIGNATURE: Aldo Villalta RN PATIENT NAME: Rola Aguilar DATE: December 18, 2024 TIME: 2:53 [facility]03-28-2025 NoteHNO ID: [id number] Author: ALDO VILLALTA RN Service: Care Management Author Type: Registered Nurse Type: Natacha Mgt Initial Assessment Filed: 12/18/2024 14:53 Note Text: CARE MANAGEMENT: ASSESSMENT AND DISCHARGE PLAN SERVICE DATE: December 18, 2024 SERVICE TIME: 1450 PCP: No primary care provider on file. Primary Contact: No emergency contact information on file. 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 Completion: Yes Action: Education Provided Current Living Arrangements and Support Lives with: Family members, Children Type of Residence: Private Residence (House) Support: Family members How do you manage to accomplish the following: Independent: Ambulation, Bathe/Shower, Dress, Meals/Meal Prep, Going to the bathroom, Medication Management, Transportation to appointments/community Current Services/Equipment Current Post-Acute Service(s): DME Current DME Type: Ostomy supplies Discharge Planning Patient Goal(s): Be able to go home, General wellness [place] Choice Explained: [place] of Choice Given: No Reason Not Given: No placements necessary Are you interested in bedside delivery of your medications? Yes Discharge Planning Participant(s): Patient Patient/Family Comments: Caregiver Assessment: Caregiver is ready, willing and able to meet the patient's needs as recommended by the inter-professional team: No Caregiver needed Transport at Discharge: Transportation Arrangements: Car Needs Prior to Discharge: Needs Prior to Discharge: None Post-Acute Discharge Plan: Patient admitted for fistula repair. IPTA. No skilled services. Orders her own ostomy supplies. HNN on DC. SIGNATURE: Aldo Villalta RN PATIENT NAME: Rola Aguilar DATE: December 18, 2024 TIME: 2:53 [facility]03-28-2025 NoteHNO ID: [id number] Author: PATRICIA HUBER AA Service: Anesthesiology Author Type: Research Project Manager Type: Anesthesia Procedure Notes Filed: 12/18/2024 11:52 Note Text: ANESTHESIOLOGY PROCEDURE NOTE Airway General Information Procedure Start Time/Medication Administration: 12/18/2024 11:37 AM Procedure End Time: 12/18/2024 1:13 AM Patient location during procedure: OR Staffing Anesthesiologist: Ayana Felix DO CAA: Patricia Huber AA Performed by: GABBY Indications and Patient Condition Indications for airway management: anesthesia Preoxygenated: yes anesthesia circuit Method: sleep Difficult Mask: No Final Airway Details Final airway type: endotracheal airway Final Endotracheal Airway: ETT Cuffed: yes Successful intubation technique: direct laryngoscopy Endotracheal tube insertion site: oral Blade: Chantelle Blade size: #4 ETT size (mm): 7.0 Measured from: lips Measurement (cm): 20 Placement verified by: capnometry Cormack-Lehane Classification: grade I - full view of glottis Number of attempts at approach: 1 Airway not difficult SIGNATURE: ELVIRA Guzman PATIENT NAME: Rloa Aguilar DATE: December 18, 2024 TIME: 11:51 AM CSN: [id number] NoteHNO ID: [id number] Author: PATRICIA HUBER AA Service: Anesthesiology Author Type: Research Project Manager Type: Anesthesia Procedure Notes Filed: 12/18/2024 11:52 Note Text: ANESTHESIOLOGY PROCEDURE NOTE Airway General Information Procedure Start Time/Medication Administration: 12/18/2024 11:37 AM Procedure End Time: 12/18/2024 1:13 AM Patient location during procedure: OR Staffing Anesthesiologist: Ayana Felix DO CAA: Patricia Huber AA Performed by: GABBY Indications and Patient Condition Indications for airway management: anesthesia Preoxygenated: yes anesthesia circuit Method: sleep Difficult Mask: No Final Airway Details Final airway type: endotracheal airway Final Endotracheal Airway: ETT Cuffed: yes Successful intubation technique: direct laryngoscopy Endotracheal tube insertion site: oral Blade: Chantelle Blade size: #4 ETT size (mm): 7.0 Measured from: lips Measurement (cm): 20 Placement verified by: capnometry Cormack-Lehane Classification: grade I - full view of glottis Number of attempts at approach: 1 Airway not difficult SIGNATURE: ELVIRA Guzman PATIENT NAME: Rola Aguilar DATE: December 18, 2024 TIME: 11:51 AM CSN: [id number] NoteHNO ID: [id number] Author: JADYN BOJORQUEZ MD Service: Colorectal Author Type: Fellow Type: Progress Notes Filed: 12/18/2024 08:23 Note Text: General Surgery Progress Note Service Date: 12/18/2024 Assessment and Plan: Ms. Aguilar is a 29 year old female with h/o Crohn's proctocolitis with known severe perianal disease s/p multiple EUA's (most recently being on 07/17/[address] Thakkar for a large abscess cavity in the ischiorectal space with fistulization to the rectum) and a lap DLI creation in 2018 who declines any disease modifying medications due to subjective concern for worsening of her perianal disease. She presents as a transfer from an OSH with increased anxiety, pain and drainage from her perianal region. Neuro: Pain control: tylenol, oxycodone and dilaudid PRN. Home meds Cardiac: HDS Respiratory: Incentive spirometry. Minimize use of supplemental O2. GI: NPO since MN. Will undergo EUA with possible abscess drainage today. Patient agreeable and consented for procedure FEN: IVF with LR mIVF Renal: Urine output adequate. ID: afebrile over last 24 hours. Heme: No clinical evidence of bleeding. MSK: OOB Prophylaxis: IPCs, lovenox Dispo: home pending OR today Surgery Blue Team [phone] weekdays. Or [phone] weeknights (6pm - 6am) and weekends. Subjective: See above Physical Exam: BP 115/60 Pulse 110 Temp 37.1 ?C (98.8 ?F) (Oral) Resp 14 Ht 167.6 cm (5' 6 ) Wt 50.8 kg (112 lb 1.7 oz) SpO2 100% BMI 18.09 kg/m? GENERAL: we appearing 29 year old female in no distress LUNGS: nonlabored breathing on room air CARDIAC: warm and well perfused throughout ABDOMEN: soft, non tender. Deferred anal examination NEURO: grossly intact Labs: CBC, BMP, MG, PHOS Recent Labs 12/18/24 0601 12/17/24 1848 WBC 7.78 9.25 HB 8.6* 10.4* HCT 28.1* 35.2* PLT 502* 645* NA 137 136 K 3.6* 3.4* CHLOR 103 101 CO2 23 22 BUN 5* 4* CREAT 0.75 0.70 GLUC 90 77 CA 7.5* 7.7* Liver Function, Amylase, AND Lipase Recent Labs 12/17/24 1848 TPROT 5.7* ALB 2.0* ALT 7 AST 13 ALKPHOS 170* TBILI 0.3FWestover Air Force Base [id number] Evaluation + Plan noteExtracted from: Title:ED Note Author:Manan LEDESMA, Nellie Ramirez te:12/16/24 Crohn's colitis (K50.10: Counter Tender hn's disease of large intestine without complications) Parastomal hernia (K43.5: Parastomal hernia without obstruction or gangrene) Perirectal abscess (K61.1: Rectal abscess) Sepsis (A41.9: Sepsis, unspecified organism) Orders: acetaminophen + Generic Diluent 100 mL, 1,000 mg = 100 mL, Soln-IV, IV Piggyback, Once, Stop date 12/16/24 22:30:00 EDT, STAT, Start date 12/16/24 22:30:00 EDT, 400 mL/hr, Infuse over 15 minute(s) HYDROmorphone, 0.5 mg = 0.5 mL, Injection, IV Push, Once, Stop date 12/17/24 0:23:00 EDT, STAT, Start date 12/17/24 0:23:00 EDT, 12/17/24 0:23:00 EDT morphine, 4 mg = 1 mL, Injection, IV Push, Once, Stop date 12/16/24 22:30:00 EDT, STAT, Start date 12/16/24 22:30:00 EDT, 12/16/24 22:30:00 EDT piperacillin-tazobactam + Sodium Chloride 0.9% intravenous solution 100 mL, 4.5 gm = 1 EA, IV Piggyback, q6hrFT, STAT, Start date 12/17/24 0:19:00 EDT, 200 mL/hr, Infuse over 30 minute(s), 12/17/24 0:19:00 EDT Sodium Chloride 0.9% intravenous solution, 1,000 mL, Soln-IV, IV, Once, Stop date 12/16/24 22:32:00 EDT, STAT, Start date 12/16/24 22:32:00 EDT, Infuse over 61, minute(s) Beta hCG Qual Blood Culture Charcoal Blood Culture Charcoal CT Abdomen/Pelvis w/ Contrast Lactic Acid Lactic Acid Transfer Patient Future Appointments Appointment Date:12/23/2024 09:30:00 AM Scheduled Provider:Ja Pérez MD Location:[facility] Dig[facility]ive Health Appointment Type:[facility] Follow Up Diagnostic Tests Pending * Urine Culture 12/17/24 [facility] 03-25-2025 Hospital Discharge instructions Patient Education 12/15/2024 16:59:29 Generalized Anxiety Disorder, Adult Generalized Anxiety Disorder, Adult Generalized anxiety disorder (PARMINDER) is a mental health condition. Unlike normal worries, anxiety related to PARMINDER is not triggered by a specific event. These worries do not fade or get better with time.PARMINDER interferes with relationships, work, and school. PARMINDER symptoms can vary from mild to severe. People with severe PARMINDER can have intense waves of anxietywith physical symptoms that are similar to panic attacks. What are the causes? The exact cause of PARMINDER is not known, but the following are believed to have an impact: Differences in natural brain chemicals. Genes passed down from parents to children. Differences in the way threats are perceived. Development and stress during childhood. Personality. What increases the risk? The following factors may make you more likely to develop this condition: Being female. Having a family history of anxiety disorders. Being very shy. Experiencing very stressful life events, such as the of a loved one. Having a very stressful family environment. What are the signs or symptoms? People with PARMINDER often worry excessively about many things in their lives, such as their health and family. Symptoms may also include: Mental and emotional symptoms: ?Worrying excessively about natural disasters. ?Fear of being late. ?Difficulty concentrating. ?Fears that others are judging your performance. Physical symptoms: ?Fatigue. ?Headaches, muscle tension, muscle twitches, trembling, or feeling shaky. ?Feeling like your heart is pounding or beating very fast. ?Feeling out of breath or like you cannot take a deep breath. ?Having trouble falling asleep or staying asleep, or experiencing restlessness. ?Sweating. ?Nausea, diarrhea, or irritable bowel syndrome (IBS). Behavioral symptoms: ?Experiencing erratic moods or irritability. ?Avoidance of new situations. ?Avoidance of people. ?Extreme difficulty making decisions. How is this diagnosed? This condition is diagnosed based on your symptoms and medical history. You will also have a physical exam. Your health care provider may perform tests to rule out other possible causes of your symptoms. To be diagnosed with PARMINDER, a person must have anxiety that: Is out of his or her control. Affects several different aspects of his or her life, such as work and relationships. Causes distress that makes him or her unable to take part in normal activities. Includes at least three symptoms of PARMINDER, such as restlessness, fatigue, trouble concentrating, irritability, muscle tension, or sleep problems. Before your health care provider can confirm a diagnosis of PARMINDER, these symptoms must be present more days than they are not, and they must last for 6 months or longer. How is this treated? This condition may be treated with: Medicine. Antidepressant medicine is usually prescribed for long-term daily control. Anti-anxiety medicines may be added in severe cases, especially when panic attacks occur. Talk therapy (psychotherapy). Certain types of talk therapy can be helpful in treating PARMINDER by providing support, education, and guidance. Options include: ?Cognitive behavioral therapy (CBT). People learn coping skills and self-calming techniques to easetheir physical symptoms. They learn to identify unrealistic thoughts and behaviors and to replace them with more appropriate thoughts and behaviors. ?Acceptance and commitment therapy (ACT). This treatment [...] of therapies. Follow these instructions at home: Lifestyle Maintain a consistent routine and schedule. Anticipate stressful situations. Create a plan and allow extra time to work with your plan. Practice stress management or self-calming techniques that you have learned from your therapist or your health care provider. Exercise regularly and spend time outdoors. Eat a healthy diet that includes plenty of vegetables, fruits, whole grains, low-fat dairy products, and lean protein. ?Do not eat a lot of foods that are high in fat, added sugar, or salt (sodium). ?Drink plenty of water. Avoid alcohol. Alcohol can increase anxiety. Avoid caffeine and certain epxn-gbv-hcdpgea cold medicines. These may make you feel worse. Ask yourpharmacist which medicines to avoid. General instructions Take yrod-cxr-wsasdjj and prescription medicines only as told by your health care provider. Understand that you are likely to have setbacks. Accept this and be kind to yourself as you persistto take better care of yourself. Anticipate stressful situations. Create a plan and allow extra time to work with your plan. 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 Spend time with people who care about you. Keep all follow-up visits. This is important. Where to find more information National [place] of Mental Health: www.nimh.nih.gov Substance Abuse and Mental Health Services: www.[facility].gov Contact a health care provider if: Your symptoms do not get better. Your symptoms get worse. You have signs of depression, such as: ?A persistently sad or irritable mood. ?Loss of enjoyment in activities that used to bring you barney. ?Change in weight or eating. ?Changes in sleeping habits. Get help right away if: You have thoughts about hurting yourself or others. If you ever feel like you may hurt yourself or others, or have thoughts about taking your own life,get help right away. Go to your nearest emergency department or: Call your local emergency services (836 in the [place] Call a suicide crisis helpline, such as the National Suicide Prevention Lifeline at or 855 in the [place] This is open 24 hours a day in the [place] Text the Crisis Text Line at 804158 (in the [place] Summary Generalized anxiety disorder (PARMINDER) is a mental health condition that involves worry that is not triggered by a specific event. People with PARMINDER often worry excessively about many things in their lives, such as their health and family. PARMINDER may cause symptoms such as restlessness, trouble concentrating, sleep [...] provider. Document Revised: 04/04/2022 Document Reviewed: 12/31/2021 [employer] Patient Education 2023 [employer]. Follow Up Care 12/15/2024 14:45:43 With:XXXX NONE Address: [place] When:12/18/2024 16:43:34 [facility] 03-25-2025 NoteED Patient Education Note Mental and Behavioral Health Generalized Anxiety Disorder, Adult Generalized anxiety disorder (PARMINDER) is a mental health condition. Unlike normal worries, anxiety related to PARMINDER is not triggered by a specific event. These worries do not fade or get better with time.PARMINDER interferes with relationships, work, and school. PARMINDER symptoms can vary from mild to severe. People with severe PARMINDER can have intense waves of anxietywith physical symptoms that are similar to panic attacks. What are the causes? The exact cause of PARMINDER is not known, but the following are believed to have an impact: ??? Differences in natural brain chemicals. ??? Genes passed down from parents to children. ??? Differences in the way threats are perceived. ??? Development and stress during childhood. ??? Personality. What increases the risk? The following factors may make you more likely to develop this condition: ??? Being female. ??? Having a family history of anxiety disorders. ??? Being very shy. ??? Experiencing very stressful life events, such as the of a loved one. ??? Having a very stressful family environment. What are the signs or symptoms? People with PARMINDER often worry excessively about many things in their lives, such as their health and family. Symptoms may also include: ??? Mental and emotional symptoms: ? Worrying excessively about natural disasters. ? Fear of being late. ? Difficulty concentrating. ? Fears that others are judging your performance. ??? Physical symptoms: ? Fatigue. ? Headaches, muscle tension, muscle twitches, trembling, or feeling shaky. ? Feeling like your heart is pounding or beating very fast. ? Feeling out of breath or like you cannot take a deep breath. ? Having trouble falling asleep or staying asleep, or experiencing restlessness. ? Sweating. ? Nausea, diarrhea, or irritable bowel syndrome (IBS). ??? Behavioral symptoms: ? Experiencing erratic moods or irritability. ? Avoidance of new situations. ? Avoidance of people. ? Extreme difficulty making decisions. How is this diagnosed? This condition is diagnosed based on your symptoms and medical history. You will also have a physical exam. Your health care provider may perform tests to rule out other possible causes of your symptoms. To be diagnosed with PARMINDER, a person must have anxiety that: ??? Is out of his or her control. ??? Affects several different aspects of his or her life, such as work and relationships. ??? Causes distress that makes him or her unable to take part in normal activities. ??? Includes at least three symptoms of PARMINDER, such as restlessness, fatigue, trouble concentrating, irritability, muscle tension, or sleep problems. Before your health care provider can confirm a diagnosis of PARMINDER, these symptoms must be present more days than they are not, and they must last for 6 months or longer. How is this treated? This condition may be treated with: ??? Medicine. Antidepressant medicine is usually prescribed for long-term daily control. Anti-anxiety medicines may be added in severe cases, especially when panic attacks occur. ??? Talk therapy (psychotherapy). Certain types of talk therapy can be helpful in treating PARMINDER by providing support, education, and guidance. Options include: ? Cognitive behavioral therapy (CBT). People learn coping skills and self- calming techniques to ease their physical symptoms. They learn to identify unrealistic thoughts and behaviors and to replace them with more appropriate thoughts and behaviors. ? Acceptance and commitment therapy (ACT). This treatment teaches people how to be mindful as a wayto cope with unwanted thoughts and feelings. ? Biofeedback. This process trains you to manage your body's response (physiological response) through breathing techniques and relaxation methods. You will work with a therapist while machines are used to monitor your physical symptoms. ??? Stress management techniques. These include yoga, meditation, and exercise. A mental health specialist can help determine which treatment is best for you. Some people see improvement with one type of therapy. However, other people require a combination of therapies. Follow these instructions at home: Lifestyle ??? Maintain a consistent routine and schedule. ??? Anticipate stressful situations. Create a plan and allow extra time to work with your plan. ??? Practice stress management or self-calming techniques that you have learned from your therapistor your health care provider. ??? Exercise regularly and spend time outdoors. ??? Eat a healthy diet that includes plenty of vegetables, fruits, whole grains, low-fat dairy products, and lean protein. ? Do not eat a lot of foods that are high in fat, added sugar, or salt (sodium). ? Drink plenty of water. ??? Avoid alcohol. Alcohol can increase anxiety. ??? Avoid caffeine and certain prgm-acd-gwlvttt cold me (more content not included)...[facility]03-25-2025 Evaluation + Plan note Extracted from: Title:ED Note Author:Puneet Proctor PA-C te:12/15/24 Anxiety (F41.9: Anxiety diso rder, unspecified) Pain syndrome, chronic (G89.4: Chronic pain syndrome) Orders: lorazepam, 2 mg = 2 tab(s), Tab, Oral, Once, Stop date 12/15/24 15:25:00 EDT, STAT, Start date 12/15/24 15:25:00 EDT, 12/15/24 15:25:00 EDT lorazepam, 1 mg = 1 tab(s), Oral, TID, PRN for anxiety, # 6 tab(s), Refills(s) 0, Pharmacy: [facility]/pharmacy #[id number], 167, cm, 12/15/24 14:57:00 EDT, Height/Length Dosing, 50.5, kg, 12/15/24 14:57:00 EDT, Weight Dosing morphine, 4 mg = 1 mL, Injection, IV Push, Once, Stop date 12/15/24 15:27:00 EDT, STAT, Start date 12/15/24 15:27:00 EDT, 12/15/24 15:27:00 EDT ondansetron, 4 mg = 2 mL, Injection, IV Push, Once, Stop date 12/15/24 15:27:00 EDT, STAT, Start date 12/15/24 15:27:00 EDT, 12/15/24 15:27:00 EDT Future Appointments Appointment Date:12/23/2024 09:30:00 AM Scheduled Provider:Ja Pérez MD Location:[facility] Digestive Health Appointment Type[facility] Follow Up [facility] 03-23-2025 Hospital Discharge instructions Patient Education 12/13/2024 03:14:44 Colitis Colitis Colitis is a condition in which the colon is inflamed. It can cause diarrhea, blood in the stool, and abdominal pain. Colitis can last a short time (be acute), or it may last a long time (become chronic). What are the causes? This condition may be caused by: Infections from viruses or bacteria. A reaction to medicine. Certain autoimmune diseases, such as Crohn's disease or ulcerative colitis. Radiation treatment. Decreased blood flow to the bowel (ischemia). What are the signs or symptoms? Symptoms of this condition include: Diarrhea, blood in the stool, or black, tarry stool. Pain in the joints or abdominal pain. Fever or fatigue. Vomiting. Weight loss. Bloating. Having fewer bowel movements than usual. A strong and sudden urge to have a bowel movement. Feeling like the bowel is not empty after a bowel movement. How is this diagnosed? This condition may be diagnosed based on a stool test and a blood test. You may also have other tests, such as: X-rays. CT scan. Colonoscopy. Endoscopy. Biopsy. How is this treated? Treatment for this condition depends on the cause. This condition may be treated with: Steps to rest the bowel, such as not eating or drinking for a period of time. Fluids that are given through an IV. Medicine for pain and diarrhea. Antibiotic medicines. Cortisone medicines. Surgery. Follow these instructions at home: Eating and drinking Follow instructions from your health care provider about eating or drinking restrictions. Drink enough fluid to keep your urine pale yellow. Work with a dietitian to determine whether certain foods cause your condition to flare up. Avoid foods or drinks that cause flare-ups. Eat a well-balanced diet. General instructions If you were prescribed an antibiotic medicine, take it as told by your health care provider. Do notstop taking the antibiotic even if you start to feel better. Take fytv-etw-tlreeze and prescription medicines only as told by your health care provider. Keep all follow-up visits. This is important. Contact a health care provider if: Your symptoms do not go away. You develop new symptoms. Get help right away if: You have a fever that does not go away with treatment. You develop chills. You have extreme weakness, fainting, or dehydration. You vomit repeatedly. You develop severe pain in your abdomen. You pass bloody or tarry stool. Summary Colitis is a condition in which the colon is inflamed. Colitis can last a short time (be acute), alana may last a long time (become chronic). Treatment for this condition depends on the cause and may include resting the bowel, taking medicines, or having surgery. If you were prescribed an antibiotic medicine, take it as told by your health care provider. Do notstop taking the antibiotic even if you start to feel better. Get help right away if you develop severe pain in your abdomen. Keep all follow-up visits. This is important. This information is not intended to replace advice given to you by your health care provider. Make sure you discuss any questions you have with your health care provider. Document Revised: 05/16/2021 Document Reviewed: 05/16/2021 Spotjournal Patient Education 2023 [employer]. 12/13/2024 03:14:44 Anorectal Abscess Anorectal Abscess An abscess is [...] beyond the abscess and look like a redstreak on the skin. A painful lump or [...] Follow these instructions at home: Medicines Take mmcl-kph-ljcserk and prescription medicines only as told by [...] and water are not available, use hand head of digital advertising & integration. ?Change your dressing as told by your provider. ?Leave stitches (sutures), skin glue, or tape strips in place. These skin closures may need to stayin place for 2 weeks or longer. If [...] to prevent skin damage. The risk of damageis higher if you cannot feel pain, heat, or cold. General instructions Take a sitz bath 3 4 times a day and after you poop. A sitz bath is a shallow, warm water bath thatyou sit down in. The water should only come up to your hips and should cover your butt. Follow instructions from your provider about what you may eat and drink. Keep all follow-up visits. Your provider may need to remove stitches and make sure that the abscesshas gone away. Where to find more information [place] [employer]: fascrs.org [...] provider. Document Revised: 05/01/2023 Document Reviewed: 05/01/2023 Spotjournal Patient Education 2023 [employer]. 12/13/2024 03:14:44 Abdominal Pain, Adult Abdominal Pain, Adult Pain [...] Follow these instructions at home: Medicines Take estb-zln-neendev and prescription medicines only as told by [...] provider. Document Revised: 06/26/2023 Document Reviewed: 06/26/2023 [employer] Patient Education 2023 [employer]. Follow Up Care 12/12/2024 19:46:42 With:Make sure to follow-up with your colorectal surgeon as discussed. Return to the emergency room if your pain gets worse, fever, vomiting or any new symptoms. Address:Unknown When:12/16/2024 [facility] 03-23-2025 NoteED Patient Education Note Gastroenterology Colitis Colitis is a condition in which the colon is inflamed. It can cause diarrhea, blood in the stool, and abdominal pain. Colitis can last a short time (be acute), or it may last a long time (become chronic). What are the causes? This condition may be caused by: ??? Infections from viruses or bacteria. ??? A reaction to medicine. ??? Certain autoimmune diseases, such as Crohn's disease or ulcerative colitis. ??? Radiation treatment. ??? Decreased blood flow to the bowel (ischemia). What are the signs or symptoms? Symptoms of this condition include: ??? Diarrhea, blood in the stool, or black, tarry stool. ??? Pain in the joints or abdominal pain. ??? Fever or fatigue. ??? Vomiting. ??? Weight loss. ??? Bloating. ??? Having fewer bowel movements than usual. ??? A strong and sudden urge to have a bowel movement. ??? Feeling like the bowel is not empty after a bowel movement. How is this diagnosed? This condition may be diagnosed based on a stool test and a blood test. You may also have other tests, such as: ??? X-rays. ??? CT scan. ??? Colonoscopy. ??? Endoscopy. ??? Biopsy. How is this treated? Treatment for this condition depends on the cause. This condition may be treated with: ??? Steps to rest the bowel, such as not eating or drinking for a period of time. ??? Fluids that are given through an IV. ??? Medicine for pain and diarrhea. ??? Antibiotic medicines. ??? Cortisone medicines. ??? Surgery. Follow these instructions at home: Eating and drinking ??? Follow instructions from your health care provider about eating or drinking restrictions. ??? Drink enough fluid to keep your urine pale yellow. ??? Work with a dietitian to determine whether certain foods cause your condition to flare up. ??? Avoid foods or drinks that cause flare-ups. ??? Eat a well-balanced diet. General instructions ??? If you were prescribed an antibiotic medicine, take it as told by your health care provider. Donot stop taking the antibiotic even if you start to feel better. ??? Take ktzu-dlw-vomnoli and prescription medicines only as told by your health care provider. ??? Keep all follow-up visits. This is important. Contact a health care provider if: ??? Your symptoms do not go away. ??? You develop new symptoms. Get help right away if: ??? You have a fever that does not go away with treatment. ??? You develop chills. ??? You have extreme weakness, fainting, or dehydration. ??? You vomit repeatedly. ??? You develop severe pain in your abdomen. ??? You pass bloody or tarry stool. Summary ??? Colitis is a condition in which the colon is inflamed. Colitis can last a short time (be acute), or it may last a long time (become chronic). ??? Treatment for this condition depends on the cause and may include resting the bowel, taking medicines, or having surgery. ??? If you were prescribed an antibiotic medicine, take it as told by your health care provider. Donot stop taking the antibiotic even if you start to feel better. ??? Get help right away if you develop severe pain in your abdomen. ??? Keep all follow-up visits. This is important. This information is not intended to replace advice given to you by your health care provider. Make sure you discuss any questions you have with your health care provider. Document Revised: 05/16/2021 Document Reviewed: 05/16/2021 Spotjournal Patient Education ? 2023 [employer]. Anorectal Abscess An abscess is an infected [...] by clogged glands or an infection in: ??? The anus. ??? The area between the anus and the scrotum in males or between the anus and the vagina in females (perineum). What increases the risk? You may be more likely to get this condition if: ??? You are . ??? You have diabetes or an inflammatory bowel disease, such as Crohn's disease. ??? You have had anal sex. ??? You have certain cancers. These include rectal cancer, leukemia, or lymphoma. ??? You have been given medicines to kill cancer cells (chemotherapy). ??? You have cracks in your anus (anal fissures). These cracks may form if you have constipation that lasts for a long time or does not go away. ??? You have a sexually transmitted infection (STI). What are the signs or symptoms? The main symptom of this condition is pain. It may be a throbbing pain that gets worse when you poop. Other symptoms include: ??? Swelling, redness, and pus near the anus. The redness may go beyond the abscess and look like ared (more content not included)...[facility]03-22-2025 Evaluation + Plan noteExtracted from: Title:ED Note Author:Carolyn Mcmahon M.D. te:12/12/24 1. Abdominal pain (R10.9: Un specified abdominal pain) 2. Crohn's colitis (K50.10: Crohn's disease of large intestine without complications) 3. Anal abscess (K61.0: Anal abscess) Orders: amoxicillin-clavulanate, = 1 tab(s), Oral, q12hr, X 10 day(s), # 20 tab(s), Refills(s) 0, Pharmacy: [facility]/pharmacy #[id number], 167.6, cm, 12/12/24 19:58:00 EDT, Height/Length Dosing, 50.4, kg, 12/12/24 19:58:00 EDT, Weight Dosing levetiracetam, 500 mg = 1 tab(s), Tab, Oral, Once, Stop date 12/13/24 2:41:00 EDT, STAT, Start date 12/13/24 2:41:00 EDT, 12/13/24 2:41:00 EDT lorazepam, 1 mg = 0.5 mL, Injection, IV Push, Once, Stop date 12/12/24 20:35:00 EDT, NOW, Start date 12/12/24 20:35:00 EDT, 12/12/24 20:35:00 EDT morphine, 4 mg = 1 mL, Injection, IV Push, Once, Stop date 12/12/24 23:45:00 EDT, STAT, Start date 12/12/24 23:45:00 EDT, 12/12/24 23:45:00 EDT morphine, 4 mg = 1 mL, Injection, IV Push, Once, Stop date 12/12/24 20:15:00 EDT, STAT, Start date 12/12/24 20:15:00 EDT, 12/12/24 20:15:00 EDT ondansetron, 4 mg = 2 mL, Injection, IV Push, Once, Stop date 12/12/24 20:15:00 EDT, STAT, Start date 12/12/24 20:15:00 EDT, 12/12/24 20:15:00 EDT oxycodone, 5 mg = 1 tab(s), Oral, q6hr, PRN as needed for pain, # 10 tab(s), Refills(s) 0, Pharmacy: [facility]/pharmacy #[id number], 167.6, cm, 12/12/24 19:58:00 EDT, Height/Length Dosing, 50.4, kg, 12/12/24 19:58:00 EDT, Weight Dosing oxycodone, 5 mg = 1 tab(s), Tab, Oral, Once, Stop date 12/13/24 3:14:00 EDT, STAT, Start date 12/13/24 3:14:00 EDT, 12/13/24 3:14:00 EDT piperacillin-tazobactam + Sodium Chloride 0.9% intravenous solution 100 mL, 3.375 gm = 1 EA, Injection, IV Piggyback, Once, Stop date 12/13/24 2:02:00 EDT, STAT, Start date 12/13/24 2:02:00 EDT, 200 mL/hr, Infuse over 30 minute(s) Sodium Chloride 0.9% intravenous solution, 1,000 mL, Soln-IV, IV, Once, Stop date 12/12/24 20:15:00 EDT, STAT, Start date 12/12/24 20:15:00 EDT, Infuse over 61, minute(s) Basic Metabolic Panel CBC w/ Auto Diff CT Abdomen/Pelvis w/ Contrast eGFR Extra SST Tube Hepatic Function Panel Lipase Level Magnesium Level PT & PTT U Beta Hcg Qual UA with Cult Rflx Urine Culture Future Appointments Appointment Date:12/23/2024 09:30:00 AM Scheduled Provider:Ja Pérez MD Location:[facility] Digestive Health Appointment Type:[facility] Follow Up [facility] 03-20-2025 Hospital Discharge instructions Patient Education 12/09/2024 23:05:01 Nausea and Vomiting, Adult, [place] Nausea and Vomiting, Adult Nausea is feeling [...] fruit juice). ?Low-calorie sports drinks. Eat bland, uwuq-vc-hogkzz foods in small amounts as you are able, such as: ?Bananas. ?Applesauce. ?Rice. ?Low-fat (lean) meats. ?[place]. ?Crackers. Avoid drinking fluids that have a lot of sugar or caffeine in them. This includes energy drinks, sports drinks, and soda. Avoid alcohol. Avoid spicy or fatty foods. General instructions Take ugns-aiz-chgishs and prescription medicines only as told by your doctor. Drink enough fluid to keep your pee (urine) pale yellow. Wash your hands often with soap and water for at least 20 seconds. If you cannot use soap and water, use hand head of digital advertising & integration. Make sure that everyone in your home [...] your doctor about eating and drinking. Take rhxw-mro-mrylotg and prescription medicines only as told by your doctor. Contact your doctor if your symptoms get worse or you have new symptoms. Keep all follow-up visits. This information is not intended to replace advice given to you by your health care provider. Make sure you discuss any questions you have with your health care provider. Document Revised: 03/16/2022 Document Reviewed: 03/16/2022 [employer]journal Patient Education 2023 [employer]. 12/09/2024 23:05:01 Hypomagnesemia Hypomagnesemia Hypomagnesemia is a condition in which the level of magnesium in the blood is too low. Magnesium adrianne mineral that is found in many foods. It is used in many different processes in the body. Hypomagnesemia can affect every organ in the body. In severe cases, it can cause life-threatening problems. What are the causes? This condition may be caused by: Not getting enough magnesium in your diet or not having enough healthy foods to eat (malnutrition). Problems with magnesium absorption in the intestines. Dehydration. Excessive use of alcohol. Vomiting. Severe or long-term (chronic) diarrhea. Some medicines, including medicines that make you urinate more often (diuretics). Certain diseases, such as kidney disease, diabetes, celiac disease, and overactive thyroid. What are the signs or symptoms? Symptoms of this condition include: Loss of appetite, nausea, and vomiting. Involuntary shaking or trembling of a body part (tremor). Muscle weakness or tingling in the arms and legs. Sudden tightening of muscles (muscle spasms). Confusion. Psychiatric issues, such as: ?Depression and irritability. ?Psychosis. A feeling of fluttering of the heart (palpitations). Seizures. These symptoms are more severe if magnesium levels drop suddenly. How is this diagnosed? This condition may be diagnosed based on: Your symptoms and medical history. A physical exam. Blood and urine tests. How is this treated? Treatment depends on the cause and the severity of the condition. It may be treated by: Taking a magnesium supplement. This can be taken in pill form. If the condition is severe, magnesium is usually given through an IV. Making changes to your diet. You may be directed to eat foods that have a lot of magnesium, such asgreen leafy vegetables, peas, beans, and nuts. Not drinking alcohol. If you are struggling not to drink, ask your health care provider for help. Follow these instructions at home: Eating and drinking Make sure that your diet includes foods with magnesium. Foods that have a lot of magnesium in them include: ?Green leafy vegetables, such as spinach and broccoli. ?Beans and peas. ?Nuts and seeds, such as almonds and sunflower seeds. ?Whole grains, such as whole grain bread and fortified cereals. Drink fluids that contain salts and minerals (electrolytes), such as sports drinks, when you are active. Do not drink alcohol. General instructions Take kwkc-dur-zdztjmv and prescription medicines only as told by your health care provider. Take magnesium supplements as directed if your health care provider tells you to take them. Have your magnesium levels monitored as told by your health care provider. Keep all follow-up visits. This is important. Contact a health care provider if: You get worse instead of better. Your symptoms return. Get help right away if: You develop severe muscle weakness. You have trouble breathing. You feel that your heart is racing. These symptoms may represent a serious problem that is an emergency. Do not wait to see if the symptoms will go away. Get medical help right away. Call your local emergency services (911 in the [place] Do not drive yourself to the hospital. Summary Hypomagnesemia is a condition in which the level of magnesium in the blood is too low. Hypomagnesemia can affect every organ in the body. Treatment may include eating more foods that contain magnesium, taking magnesium supplements, and not drinking alcohol. Have your magnesium levels monitored as told by your health care provider. This information is not intended to replace advice given to you by your health care provider. Make sure you discuss any questions you have with your health care provider. Document Revised: 02/06/2022 Document Reviewed: 02/06/2022 [employer] Patient Education 2023 [employer]. 12/09/2024 23:05:01 Abdominal Pain, Adult, Bmsh-da-Hyjz Abdominal Pain, Adult Many things can cause belly (abdominal) pain. In most cases, belly pain is not a serious problem and can be watched and treated at home. But in some cases, it can be serious. Your doctor will try to find the cause of your belly pain. Follow these instructions at home: Medicines Take jolv-dkl-vfhpjbv and prescription medicines only as told by [...] provider. Document Revised: 06/26/2023 Document Reviewed: 06/26/2023 [employer] Patient Education 2023 [employer]. Follow Up Care 12/09/2024 17:32:36 With:Brittny BLOUNT Address: [address] [place] [address] [address] [place] [address]- Business (1) When:12/12/2024 Comments:Take the magnesium. You can use the pain medication, nausea medication as prescribed as needed for pain and nausea. Please follow-up with your primary care doctor for further evaluation management. Please return to the ED for any new or worsening symptoms. With:XXXX NONE Address: [place] When:12/12/2024 [facility] 03-19-2025 NoteED Patient Education Note Gastroenterology Nausea and Vomiting, Adult Nausea is feeling [...] enough water in your body, you may: ??? Feel tired. ??? Feel thirsty. ??? Have a dry mouth. ??? Have cracked lips. ??? Pee (urinate) less often. Older adults and [...] your doctor about them. Eating and drinking ??? Take an ORS (oral rehydration solution). This is a drink that is sold at pharmacies and stores. ??? Drink clear fluids in small amounts as you are able, such as: ? Water. ? Ice chips. ? Fruit juice that has water added (diluted fruit juice). ? Low-calorie sports drinks. ??? Eat bland, jzfy-ia-pasthn foods in small amounts as you are able, such as: ? Bananas. ? Applesauce. ? Rice. ? Low-fat (lean) meats. ? [place]. ? Crackers. ??? Avoid drinking fluids that have a lot of sugar or caffeine in them. This includes energy drinks, sports drinks, and soda. ??? Avoid alcohol. ??? Avoid spicy or fatty foods. General instructions ??? Take sbea-huv-eamvkrk and prescription medicines only as told by your doctor. ??? Drink enough fluid to keep your pee (urine) pale yellow. ??? Wash your hands often with soap and water for at least 20 seconds. If you cannot use soap and water, use hand head of digital advertising & integration. ??? Make sure that everyone in your home washes their hands well and often. ??? Rest at home until you feel better. ??? Watch your condition for any changes. ??? Take slow and deep breaths when you feel like you may vomit. ??? Keep all follow-up visits. Contact a doctor if: ??? Your symptoms get worse. ??? You have new symptoms. ??? You have a fever. ??? You cannot drink fluids without vomiting. ??? You feel like you may vomit for more than 2 days. ??? You feel light-headed or dizzy. ??? You have a headache. ??? You have muscle cramps. ??? You have a rash. ??? You have pain while peeing. Get help right away if: ??? You have pain in your chest, neck, arm, or jaw. ??? You feel very weak or you faint. ??? You vomit again and again. ??? You have vomit that is bright red or looks like black coffee grounds. ??? You have bloody or black poop (stools) or poop that looks like tar. ??? You have a very bad headache, a stiff neck, or both. ??? You have very bad pain, cramping, or bloating in your belly (abdomen). ??? You have trouble breathing. ??? You are breathing very quickly. ??? Your heart is beating very quickly. ??? Your skin feels cold and clammy. ??? You feel confused. ??? You have signs of losing too much water in your body, such as: ? Dark pee, very little pee, or no pee. ? Cracked lips. ? Dry mouth. ? Sunken eyes. ? Sleepiness. ? Weakness. These symptoms may be an emergency. Get help right away. Call 911. ??? Do not wait to see if the symptoms will go away. ??? Do not drive yourself to the hospital. Summary ??? Nausea is feeling that you have an upset stomach and that you are about to vomit. Vomiting is when food in your stomach comes out of your mouth. ??? Follow instructions from your doctor about eating and drinking. ??? Take obci-ihh-zigblry and prescription medicines only as told by your doctor. ??? Contact your doctor if your symptoms get worse or you have new symptoms. ??? Keep all follow-up visits. This information is not intended to replace advice given to you by your health care provider. Make sure you discuss any questions you have with your health care provider. Document Revised: 03/16/2022 Document Reviewed: 03/16/2022 [employer] Patient Education ? 2023 [employer] Abdominal Pain, Adult Many things can cause belly (abdominal) pain. In most cases, belly pain is not a serious problem and can be watched and treated at home. But in some cases, it can be serious. Your doctor will try to find the cause of your belly pain. Follow these instructions at home: Medicines ??? Take jpld-adw-azwyuad and prescription medicines only as told by your doctor. ??? Do not take medicines that help you poop (laxatives) unless told by your doctor. General instructions ??? Watch your belly pain for any changes. Tell your doctor if the pain gets worse. ??? Drink enough fluid to keep your pee (urine) pale yellow. Con (more content not included)...[facility]03-19-2025 Evaluation + Plan noteExtracted from: Title:ED Note Author:Lisandro Mishra, Carolyn Ramirez te:12/09/24 1. Abdominal pain (R10.9: Un specified abdominal pain) 2. Nausea (R11.0: Nausea) 3. Diarrhea (R19.7: Diarrhea, unspecified) 4. Hypomagnesemia (E83.42: Hypomagnesemia) Orders: famotidine, 20 mg = 2 mL, Soln-IV, IV Push, Once, Stop date 12/09/24 17:52:00 EDT, STAT, Start date 12/09/24 17:52:00 EDT, 12/09/24 17:52:00 EDT magnesium sulfate + Generic Diluent 100 mL, 4 gram = 100 mL, IV Piggyback, Once, Stop date 12/09/24 18:57:00 EDT, STAT, Start date 12/09/24 18:57:00 EDT, 25 mL/hr, Infuse over 4 hour(s), 12/09/24 18:57:00 EDT morphine, 4 mg = 1 mL, Injection, IV Push, Once, Stop date 12/09/24 17:52:00 EDT, STAT, Start date 12/09/24 17:52:00 EDT, 12/09/24 17:52:00 EDT morphine, 4 mg = 1 mL, Injection, IV Push, Once, Stop date 12/09/24 19:01:00 EDT, STAT, Start date 12/09/24 19:01:00 EDT, 12/09/24 19:01:00 EDT ondansetron, 4 mg = 2 mL, Injection, IV Push, Once, Stop date 12/09/24 17:52:00 EDT, STAT, Start date 12/09/24 17:52:00 EDT, 12/09/24 17:52:00 EDT Sodium Chloride 0.9% intravenous solution, 1,000 mL, Soln-IV, IV, Once, Stop date 12/09/24 17:52:00 EDT, STAT, Start date 12/09/24 17:52:00 EDT, Infuse over 61, minute(s) Sodium Chloride 0.9% intravenous solution, 1,000 mL, Soln-IV, IV, Once, Stop date 12/09/24 18:58:00 EDT, STAT, Start date 12/09/24 18:58:00 EDT, Infuse over 61, minute(s) Basic Metabolic Panel Beta hCG Qual CBC w/ Auto Diff ED Physician consult Hospitalist for continued care eGFR Extra Blue Tube Hepatic Function Panel Influenza A&B Ag Lipase Level Magnesium Level Rapid COVID Antigen ([facility]) UA with Cult Rflx Addendum by Wendy Graham DO on December 10, 2024 01:28:42 EDT Patient signed out pending discussion with hospitalist. Patient with hypomagnesemia in addition to GI losses. Discussed the case with the hospitalist who does not believe patient meets criteria for admission recommends treatment of the magnesium and recheck. Discussed this with the patient she would actually prefer to go home. Patient's magnesium is given is rechecked is 2.4. She is discharged home on magnesium supplementation patient she is also given prescription for pain and nausea medication. She is to follow-up with her primary care doctor for further evaluation management. Future Appointments Appointment Date:12/23/2024 09:30:00 AM Scheduled Provider:Ja Pérez MD Location:[facility] Appointment Type:[facility] Follow Up [facility] 03-14-2025 NoteHNO ID: [id number] Author: SOLIS FLORES RN Service: ? Author Type: Registered Nurse Type: Progress Notes Filed: 12/04/2024 15:28 Note Text: AMBULATORY PATIENT EDUCATION NOTE SURGICAL PREPARATION: laparoscopic proctocolectomy SURGERY DATE: January 08, 2025 DIAGNOSIS: crohn's disease with fistula READINESS TO LEARN COGNITIVE ABILITY: Alert and oriented MOTIVATION TO LEARN: Eager FAMILY SUPPORT: High - Very involved in pt care PHYSICAL LIMITATIONS AFFECTING LEARNING: None METHOD OF INSTRUCTION: Verbal and Written instruction - handouts provided in blue folder SUPPLEMENTAL MATERIAL: -location of surgery/ date - patient aware date is tentative and subject to change -PACC appointment needed with in 30 days of surgery -clear liquid diet -antibiotics preoperatively CLEARANCE: n/a WOUND CARE -post operative wound care expectations reviewed DIET- handouts provided on diet post op: -Post op diet following colorectal surgery = handout reviewed and provided to patient. Patient acknowledges and understands. They have contact phone number for further concerns and for post operative questions. Staff Message sent to OR vamp presser with procedure/time/date for patient. TIME SPENT: 15 min Electronically Signed By: BETY Ragland, RN [facility] Coordinator[facility] History of Present illness Narrative* Solis Flores RN - 12/04/2024 3:27 PM EDT AMBULATORY PATIENT EDUCATION NOTE SURGICAL PREPARATION: laparoscopic proctocolectomy SURGERY DATE: January 08, 2025 DIAGNOSIS: crohn's disease with fistula READINESS TO LEARN COGNITIVE ABILITY: Alert and oriented MOTIVATION TO LEARN: Eager FAMILY SUPPORT: High - Very involved in pt care PHYSICAL LIMITATIONS AFFECTING LEARNING: None METHOD OF INSTRUCTION: Verbal and Written instruction - handouts provided in blue folder SUPPLEMENTAL MATERIAL: -location of surgery/ date - patient aware date is tentative and subject to change -PACC appointment needed with in 30 days of surgery -clear liquid diet -antibiotics preoperatively CLEARANCE: n/a WOUND CARE -post operative wound care expectations reviewed DIET- handouts provided on diet post op: -Post op diet following colorectal surgery = handout reviewed and provided to patient. Patient acknowledges and understands. They have contact phone number for further concerns and for post operative questions. Staff Message sent to OR vamp presser with procedure/time/date for patient. TIME SPENT: 15 min Electronically Signed By: BETY Ragland, RN [facility] Specialty Starting Gate Driver [facility] History of Present illness Narrative* Shaq Thakkar MD - 12/04/2024 10:30 AM EDT COLORECTAL SURGERY December 04, 2024 Rola Aguilar 29 year old Chief Complaint: follow up/ anal fistula History of Present Illness: Rola Aguilar is a 29 year old female who presents to the office for a follow up evaluation after undergoing a Anorectal exam under anesthesia, Incision and drainage of perianal abscess and Placement of ariana through fistula tract on 07/23/24 for a history of crohn's disease, perianal abscess and fistula. She is currently being treated with vedolizumab for Crohn's disease. FINDINGS: - Large abscess cavity in the ischiorectal space with fistulization to the rectum at the 7-8 o'clock position PAST MEDICAL HISTORY Diagnosis Date Crohn's disease [...] 108 mg (1 pen) subcutaneously every other week.2 Each 11 No current facility-administered medications for [...] week Drug use: No Physical Exam: LMP 06/29/2024 (Approximate) General Appearance: Well appearing, alert, in no acute distress, well-hydrated, well nourished. Abdomen: soft ND NT Anorectal: External exam reveals: see below Child Adolescent Psychiatrist present: yes The sensitive examination was discussed with the Patient or Patient's Authorized Director Of Advertising Sales. Asapplicable, any other physician, advance practice provider, medical student, or other health professional student that will be observing or involved in the sensitive examination for educational or training purposes was discussed with the Patient or Authorized Director Of Advertising Sales. The Patient or Authorized Director Of Advertising Sales has agreed to proceed with the sensitive examination. (Sensitive examination includes inspection and/or palpation of the breasts, pelvis, prostate and anorectal regions) She has multiple draining setons and complex fistula disease. Furthermore, she has wounds posteriorto posterior anal verge extending to her lower back region. Assessment Assessment and Plan: Rola Aguilar is a 29 year old female with severe cele-anal Crohn's and Crohn's colitis. She hasa very poor QOL and is now requesting total proctocolectomy with permanent ileostomy. We discussed all of her options today but based on her poor QOL and good family support she would like to reset and have the disease removed. We are planning a laparoscopic TPC and with a perineal dissection. She understands that she will likely have a complex post-operative perineal wound that will take time to heal but it has a better chance to heal without the rectum in place. Medical Decision Making: Data Reviewed: Tests & Documents Reviewed/ordered: Review of prior operative reports I have independently interpreted: CT Abdomen, CT Pelvis I have discussed Rola Aguilar's treatment plan and/or results with her PC and GI. Shaq Thakkar MD Colorectal Surgery documented in this encounterHenry [facility]03-14-2025 NoteHNO ID: [id number] Author: SHAQ THAKKAR MD Service: ? Author Type: Physician Type: Progress Notes Filed: 12/08/2024 09:54 Note Text: COLORECTAL SURGERY December 04, 2024 Rola Aguilar 29 year old Chief Complaint: follow up/ anal fistula History of Present Illness: Rola Aguilar is a 29 year old female who presents to the office for a follow up evaluation after undergoing a Anorectal exam under anesthesia, Incision and drainage of perianal abscess and Placement of ariana through fistula tract on 07/23/24 for a history of crohn's disease, perianal abscess and fistula. She is currently being treated with vedolizumab for Crohn's disease. FINDINGS: - Large abscess cavity in the ischiorectal space with fistulization to the rectum at the 7-8 o'clock position PAST MEDICAL HISTORY Diagnosis Date Crohn's disease [...] week Drug use: No Physical Exam: LMP 06/29/2024 (Approximate) General Appearance: Well appearing, alert, in no acute distress, well-hydrated, well nourished. Abdomen: soft ND NT Anorectal: External exam reveals: see below Child Adolescent Psychiatrist present: yes The sensitive examination was discussed with the Patient or Patient's Authorized Director Of Advertising Sales. As applicable, any other physician, advance practice provider, medical student, or other health professional student that will be observing or involved in the sensitive examination for educational or training purposes was discussed with the Patient or Authorized Director Of Advertising Sales. The Patient or Authorized Director Of Advertising Sales has agreed to proceed with the sensitive examination. (Sensitive examination includes inspection and/or palpation of the breasts, pelvis, prostate and anorectal regions) She has multiple draining setons and complex fistula disease. Furthermore, she has wounds posterior to posterior anal verge extending to her lower back region. Assessment Assessment and Plan: Rola Aguilar is a 29 year old female with severe cele-anal Crohn's and Crohn's colitis. She has a very poor QOL and is now requesting total proctocolectomy with permanent ileostomy. We discussed all of her options today but based on her poor QOL and good family support she would like to reset and have the disease removed. We are planning a laparoscopic TPC and with a perineal dissection. She understands that she will likely have a complex post-operative perineal wound that will take time to heal but it has a better chance to heal without the rectum in place. Medical Decision Making: Data Reviewed: Tests AND Documents Reviewed/ordered: Review of prior operative reports I have independently interpreted: CT Abdomen, CT Pelvis I have discussed Rola Aguilar's treatment plan and/or results with her PC and GI. Shaq Thakkar MD [facility] Surgery[facility] NoteEducation ([facility]) ROLA AGUILAR ([id number]) 1995 F Date Time Provider Department 12/04/24 SOLIS FLORES [facility] Reason for Visit: Crohns [292] During your visit today, we recorded the following information about you: Allergies As of Date: 12/04/2024 Noted Allergy Reaction HYDROMORPHONE 05/26/2023 9 - Itching Date Reviewed: 12/04/2024 Reviewed by: Tom White LPN - Fully Assessed Prescriptions as of 12/04/2024 - dicyclomine HCl (BENTYL ORAL) - KEPPRA 250 mg tablet Take 500 mg by mouth. - ondansetron orally disintegrating (ZOFRAN ODT) 4 mg disintegrating tablet take 1 tablet by mouth every 8 hours as needed for nausea and vomiting - promethazine (PHENERGAN) 25 mg tablet Take 25 mg by mouth. - busPIRone (BUSPAR) 10 mg tablet - metroNIDAZOLE (FLAGYL) 500 mg tablet Take 1 tablet by mouth three times a day. Take 1 tablet at 6pm, 7pm, and 11pm, the evening prior to surgery. - neomycin 500 mg tablet Take 2 tablets by mouth as directed. Take 2 tablet at 6pm, 7pm, and 11pm the evening prior to surgery. - oxyCODONE IR (ROXICODONE) 5 mg immediate release tablet Take 1 tablet by mouth every 8 hours as needed (Severe pain) for up to 15 doses. - vedolizumab (ENTYVIO PEN) 108 mg/0.68 mL pen Inject 108mg (1 pen) subcutaneously every other week. - vedolizumab (ENTYVIO PEN) 108 mg/0.68 mL pen Inject 108 mg (1 pen) subcutaneously every other week. Encounter Status:Closed by SOLIS FLORES on 12/04/24[facility] NoteMicrobiology PROCEDURE: Blood Culture Charcoal [R1] SOURCE: Blood BODY SITE: Arm R COLLECTED DATE/TIME: 11/24/2024 11:00 EST RECEIVED DATE/TIME: 11/24/2024 11:17 EST START DATE/TIME: 11/24/2024 11:17 EST FREE TEXT SOURCE: Michael ROBERTO DO, Quinn Rodriguez III, DO, Quinn Amaya FINAL REPORTS Final Report [] Verified Date/Time: 12/01/2024 12:00 EDT No growth at 7 days. Performing Locations R1: This test was performed at: [facility], [address] [place] [address], [id number] , , DgzcwrAvita Health SystemComment on above:Performed By: #### [id number] #### [address] [id number] NoteMicrobiology PROCEDURE: Blood Culture Charcoal [R1] SOURCE: Blood BODY SITE: Arm R COLLECTED DATE/TIME: 11/24/2024 10:19 EST RECEIVED DATE/TIME: 11/24/2024 10:58 EST START DATE/TIME: 11/24/2024 10:58 EST FREE TEXT SOURCE: Anderle III DO, Quinn Andcyn III DO, Quinn Amaya FINAL REPORTS Final Report [] Verified Date/Time: 12/01/2024 12:00 EDT No growth at 7 days. Performing Locations R1: This test was performed at: [facility], [address] [place] [address], [id number] [place] [address], LrwqxnAvita Health SystemComment on above:Performed By: #### [id number] #### [address] [id number] NoteMicrobiology PROCEDURE: Blood Culture Charcoal [R1] SOURCE: Blood BODY SITE: Arm R COLLECTED DATE/TIME: 11/22/2024 05:56 EST RECEIVED DATE/TIME: 11/22/2024 07:04 EST START DATE/TIME: 11/22/2024 07:04 EST FREE TEXT SOURCE: IV start Dokken DO, Kaylinn A Dokken DO, Kaylinn A FINAL REPORTS Final Report [] Verified Date/Time: 11/29/2024 09:00 EDT No growth at 7 days. Performing Locations R1: This test was performed at: [facility], [address] [place] [address], [id number] [place] [address], BlazhsAvita Health SystemComment on above:Performed By: #### [id number] #### [facility] [address] [place] [address] [id number] NoteMicrobiology PROCEDURE: Blood Culture Charcoal [R1] SOURCE: Blood BODY SITE: Arm R COLLECTED DATE/TIME: 11/22/2024 04:43 EST RECEIVED DATE/TIME: 11/22/2024 04:49 EST START DATE/TIME: 11/22/2024 04:49 EST FREE TEXT SOURCE: IV start Alfred Graham DO, DO, Kaylinn A FINAL REPORTS Final Report [] Verified Date/Time: 11/26/2024 11:07 EST Staphylococcus auricularis In 1 of 2 blood culture bottles drawn. Isolated from aerobic bottle Probable contaminant Result called to Dr. Rodriguez by [facility] and results read back for confirmation on 11/23/2024 11:55:43 SUSCEPTIBILITY RESULTS LEGEND: S=Susceptible, N/R=Not Reported, Blank=Data not available, or drug not advisable or tested, I=Intermediate, ESBL=Extended spectrum beta-lactamase, R=Resistant, TFG=Thymidine-dependent strain, CASANDRA=Beta-lactamase positive, CRISTINA=mcg/m;(mg/L), S*=Predicted susceptible interp, R*=Predicted resistant interp Staaur Antibiotic CRISTINA Dilutn CRISTINA Interp Amoxicillin/ <=4/2 S Clavulanate Ampicillin/ <=8/4 S Sulbactam Azithromycin >4 R Cefazolin <=8 S Ciprofloxacin <=1 S Clindamycin <=0.25 S Daptomycin <=1 S Erythromycin >4 R Gentamicin <=4 S Inducible <=4/0.5 Negative Clindamycin Levofloxacin <=1 S Linezolid <=2 S Oxacillin <=0.25 S Penicillin <=0.03 S Rifampin <=1 S Tetracycline <=4 S Trimethoprim/ <=0.5/9.5 S Sulfa Vancomycin <=0.5 S Performing Locations R1: This test was performed at: [facility], [address] [place] [address], [id number] [place] [address], LcigqnAvita [facility] SystemComment on above:Performed By: #### [id number] #### [facility] [address] [place] [address] [id number] NoteMicrobiology PROCEDURE: Spinal Fluid Culture [R1] SOURCE: CSF BODY SITE: COLLECTED DATE/TIME: 11/23/2024 12:08 EST RECEIVED DATE/TIME: 11/23/2024 16:39 EST START DATE/TIME: 11/23/2024 16:39 EST FREE TEXT SOURCE: Ted Petersen DO, DO, Adam M FINAL REPORTS Final Report [] Verified Date/Time: 11/26/2024 10:20 EST No growth at 3 days. STAINS Gram Stain Report [] Verified Date/Time: 11/24/2024 11:30 EST No WBC's seen. No organisms seen. Performing Locations R1: This test was performed at: [facility], [address] [place] [address], [id number] [place] [address], KovzosAvita Health SystemComment on above:Performed By: #### [id number] #### [facility] [address] [place] [address] [id number] Hospital Discharge instructions Patient Education 11/25/2024 15:34:38 Seizure, Adult Seizure, Adult A seizure is a sudden burst of abnormal electrical and chemical activity in the brain. Seizures usually last from 30 seconds to 2 minutes. The abnormal activity temporarily interrupts normal brain function. Many types of seizures can affect adults. A seizure can cause many different symptoms depending on where in the brain it starts. What are the causes? Common causes of this condition include: Fever or infection. Brain injury, head trauma, bleeding in the brain, or a brain tumor. Low levels of blood sugar or salt (sodium). Kidney problems or liver problems. Metabolic disorders or other conditions that are passed from parent to child (are inherited). Reaction to a substance, such as a drug or a medicine, or suddenly stopping the use of a substance (withdrawal). A stroke. Developmental disorders such as autism spectrum disorder or cerebral palsy. In some cases, the cause of a seizure may not be known. Some people who have a seizure never have another one. A person who has repeated seizures over time without a clear cause has a condition called epilepsy. What increases the risk? You are more likely to develop this condition if: You have a family history of epilepsy. You have had a tonic clonic seizure before. This type of seizure causes tightening (contraction) ofthe muscles of the whole body and loss of consciousness. You have a history of head trauma, lack of oxygen at , or strokes. What are the signs or symptoms? There are many different types of seizures. The symptoms vary depending on the type of seizure you have. Symptoms occur during the seizure. They may also occur before a seizure (aura) and after a seizure (postictal). Symptoms may include the following: Symptoms during a seizure Uncontrollable shaking (convulsions) with fast, jerky movements of muscles. Stiffening of the body. Breathing problems. Confusion, staring, or unresponsiveness. Head nodding, eye blinking or fluttering, or rapid eye movements. Drooling, grunting, or making clicking sounds with your mouth. Loss of bladder control and bowel control. Symptoms before a seizure Fear or anxiety. Nausea. Vertigo. This is a feeling like: ?You are moving when you are not. ?Your surroundings are moving when they are not. D j vu. This is a feeling of having seen or heard something before. Odd tastes or smells. Changes in vision, such as seeing flashing lights or spots. Symptoms after a seizure Confusion. Sleepiness. Headache. Sore muscles. How is this diagnosed? This condition may be diagnosed based on: A description of your symptoms. Video of your seizures can be helpful. Your medical history. A physical exam. You may also have tests, including: Blood tests. CT scan. MRI. Electroencephalogram (EEG). This test measures electrical activity in the brain. An EEG can predictwhether seizures will return. A spinal tap, also called a lumbar puncture. This is the removal and testing of fluid that surrounds the brain and spinal cord. How is this treated? Most seizures will stop on their own in less than 5 minutes, and no treatment is needed. Seizures that last longer than 5 minutes will usually need treatment. Seizures may be treated with: Medicines given through an IV. Avoiding known triggers, such as medicines that you take for another condition. Medicines to control seizures or prevent future seizures (antiepileptics), if epilepsy caused your seizures. Medical devices to prevent and control seizures. Surgery to stop seizures or to reduce how often seizures happen, if you have epilepsy that does notrespond to medicines. A diet low in carbohydrates and high in fat (ketogenic diet). Follow these instructions at home: Medicines Take crno-xho-ezqetxa and prescription medicines only as told by your health care provider. Avoid any substances that may prevent your medicine from working properly, such as alcohol. Activity Follow instructions about activities, such as driving or swimming, that would be dangerous if you had another seizure. Wait until your health care provider says it is safe to do them. If you live in the [place] check with your local department of motor vehicles (DMV) to find out aboutlocal driving laws. Each state has specific rules about when you can legally drive again. Get enough rest. Lack of sleep can make seizures more likely to occur. Educating others Teach friends and family what to do if you have a seizure. They should: ?Help you get down to the ground, to prevent a fall. ?Cushion your head and move items away from your body. ?Loosen any tight clothing around your neck. ?Turn you on your side. If you vomit, this helps keep your airway clear. ?Know whether or not you need emergency care. ?Stay with you until you recover. Also, tell them what not to do if you have a seizure. Tell them: ?They should not hold you down. Holding you down will not stop the seizure. ?They should not put anything in your mouth. General instructions Avoid anything that has ever triggered a seizure for you. Keep a seizure diary. Record what you remember about each seizure, especially anything that might have triggered it. Keep all follow-up visits. This is important. Contact a health care provider if: You have another seizure or seizures. Call each time you have a seizure. Your seizure pattern changes. You continue to have seizures with treatment. You have symptoms of an infection or illness. Either of these might increase your risk of having a seizure. You are unable to take your medicine. Get help right away if: You have: ?A seizure that does not stop after 5 minutes. ?Several seizures in a row without a complete recovery between seizures. ?A seizure that makes it harder to breathe. ?A seizure that leaves you unable to speak or use a part of your body. You do not wake up right away after a seizure. You injure yourself during a seizure. You have confusion or pain right after a seizure. These symptoms may represent a serious problem that is an emergency. Do not wait to see if the symptoms will go away. Get medical help right away. Call your local emergency services (911 in the [place] Do not drive yourself to the hospital. Summary Seizures are caused by abnormal electrical and chemical activity in the brain. The activity disrupts normal brain function and can cause various symptoms. Seizures have many causes, including illness, head injuries, low levels of blood sugar or salt, andcertain conditions. Most seizures will stop on their own in less than 5 minutes. Seizures that last longer than 5 minutes are a medical emergency and need treatment right away. Many medicines are used to treat seizures. Take ylii-rca-gpgnxov and prescription medicines only astold by your health care provider. This information is not intended to replace advice given to you by your health care provider. Make sure you discuss any questions you have with your health care provider. Document Revised: 03/17/2021 Document Reviewed: 03/17/2021 [employer] Patient Education 2022 [employer]. Follow Up Care 11/22/2024 03:17:42 With:SHAQ THAKKAR Address: [address] [place] [address]- Business (1) When:7 to 10 days Comments:Call for followup appointment - regarding sacral wound and perirectal fistula With:Ja Pérez Address: [address], [address] [phone] Business (1) When:2 to 4 weeks Comments:Call for followup appointment With:Thuy GILES, CINTIA Aguilar Address: [address] [place] [address]- Business (1) When:12/15/2024 13:30:00 Comments:This follow up is with Magdalene Boyle NP With:[facility] Address: [place] [address]- When:12/18/2024 10:45:00 Comments:Patient needs to bring proof of insurance and photo ID to this hospital follow up appointment. With:XXXX NONE Address: [place] When: Unknown [facility] 03-05-2025 NoteDischarge Summary Admission and Discharge Information Admit Date/Time:11/22/2024 06:42 Admitting Physician - Dago OLVERA DO Consulting Physician - Thuy GILES, Jeff Estrada Jr., PA-C, Aldo Hernandez Admitting Diagnoses: 1. Unspecified convulsions, 11/24/2024 Discharge Order Date Discharge Patient - Ordered -- 11/25/24 15:35:00 EST Discharge Diagnoses 1. Acute respiratory failure with hypoxia, 11/22/2024 1. Unspecified convulsions, Generalized seizure 3. Metabolic acidosis, 11/22/2024 4. Leukocytosis, 11/22/2024 5. Metabolic encephalopathy, 11/22/2024 6. Hypokalemia, 11/22/2024 7. Hypomagnesemia, 11/22/2024 8. Perianal fistula due to Crohn's disease, 11/22/2024 9. Crohn's disease, 11/22/2024 10. Generalized anxiety disorder, 11/22/2024 11. Bipolar depression, 11/22/2024 12. Pressure ulcer of coccygeal region, stage 3, 11/22/2024 13. Pressure ulcer of left buttock, stage 3, 11/22/2024 14. Pressure ulcer of right buttock, stage 3, 11/22/2024 15. Protein-calorie malnutrition, severe, 11/22/2024 16. Gram-positive bacteremia, 11/23/2024 Altered mental status, 11/22/2024 Anal fistula, unspecified, 11/22/2024 Tachycardia, 11/22/2024 Procedure History Incision and drainage of ischiorectal and/or perirectal abscess (separate procedure) (07/20/2024), Incision and drainage of vulva or perineal abscess (07/20/2024), Placement of seton (07/20/2024), Surgical treatment of anal fistula (fistulectomy/fistulotomy); subcutaneous (07/20/2024), Colonoscopy, flexible; diagnostic, including collection of specimen(s) by brushing or washing, when performed (separate procedure) (01/20/2024), Small intestinal endoscopy, enteroscopy beyond second portion of duodenum, including ileum; diagnostic, with or without collection of specimen(s) by brushing or washing (separate procedure) (01/20/2024), delivery only; (10/24/2023), Salpingectomy, complete or partial, unilateral or bilateral (separate procedure) (10/24/2023), Colonoscopy (01/18/2023), Colonoscopy, flexible; diagnostic, including collection of specimen(s) by brushing or washing, when performed (separate procedure) (01/18/2023), Small intestinal endoscopy, enteroscopy beyond second portion of duodenum, including ileum; diagnostic, with or without collection of specimen(s) by brushing or washing (separate procedure) (01/18/2023), Colonoscopy (2013), Esophagogastroduodenoscopy, H/O: ileostomy, History of ileostomy. Hospital Course Patient is a 29-year-old female with past medical history of anxiety, bipolar, Crohn's status post ileostomy, and perianal fistula secondary to perianal abscess who was admitted to [facility] on 11/22/2024 with new onset seizure activity. Was intubated in ER for airway protection. Neurology, surgery, and pulm critical care were consulted. Surgery was consulted for evaluation of her perirectal abscess and significant sacral wound. Extubated 11/23/2024. status post LP at bedside prior to extubation. EEG completed. MRI showed some mild changes related to seizure activity per neurology. Medically stable for DC on 11/25/2024 from neurologic perspective. No further seizure activity during her admission. Was discharged on Keppra 500 mg p.o. twice daily. Counseled on seizure precautions including no driving or unsupervised bathing. She voiced understanding and mother was present at time of this education. From surgery standpoint they reviewed a CT that showed no drainable fluid collection and there was no indication for acute surgical intervention. Recommended ABD pads to soak up drainage with frequent changes and to keep sacral wound clean and dry as much as possible. Recommend GI follow-up as outpa tient and follow-up with her previous surgeon Dr. Thakkar with any further issues regarding her perirectal fistula. Follow-up Outpatient neurology Dr. Marinelli in 2 to 3 weeks. Needs repeat MRI in 3 weeks. Neurology completing autoimmune encephalitis workup. Establish with family physician???scheduled for appointment on 12/18/2024. GI follow-up Dr. Pérez as needed. Follow-up with previous colorectal surgeon Dr. Thakkar for assistance with wound care Medication changes Keppra 500 mg p.o. twice daily Oxycodone 5 mg p.o. every 6 hours as needed dispense 16 tabs. Naloxone nasal spray kit for suspected opioid overdose. Services Consulted Consult to Dietitian Adult - Ordered -- 11/22/24 14:45:13 EST Consult to Neurology - Ordered -- 11/22/24 7:26:00 EST, possible seizure, Consult and Co-manage Consult to Pulmonology (Pulmonology Consult) - Ordered -- 11/23/24 11:12:00 EST, intubation 2/2 seizure, Consult and Co-manage Consult to Tele-Neurology - Completed -- 11/22/24 5:54:00 EST, ? 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 Pending SNF referral to [facility] and pending family decision regarding LTAC. Contact information provided and white board updated.[facility] on above:Result Comment: Electronically Signed By: Laurel HARTMANN, Heather\.reese\Date and Time Signed: 11/25/24 12:32 ESTOther Comment: [id number] Evaluation + Plan note Extracted from: Title:Discharge Note Author:Michael ROBERTO Evelia ROMEO Date:11/25/24 Discharge To, Anticipated II - Home with responsible caregiver Discharge Diet(s): Regular (11/25/24 15:32:00) Prescriptions Bentyl 10 mg Cap, 20 mg= 2 cap(s), Oral, QID Keppra 250 mg Tab, 500 mg= 2 tab(s), Oral, BID, 1 refills naloxone 4 mg/0.1 mL nasal spray, 4 mg, Nasal, As Directed ondansetron 4 mg Dis Tab, 4 mg= 1 tab(s), Oral, q6hr oxyCODONE 5 mg Cap, 5 mg= 1 cap(s), Oral, q6hr, PRN promethazine 25 mg Tab, 25 mg= 1 tab(s), Oral, q6hr, PRN Home busPIRone 10 mg Tab, 10 mg= 1 tab(s), Oral, BID With When Contact Information [facility] 12/18/2024 10:45 AM EDT [address] [place] [address]- Additional Instructions: Patient needs to bring proof of insurance and photo ID to this hospital follow up appointment. Jeff Marinelli MD, NEU 12/15/2024 01:30 PM EDT [address] [place] [id number]- Business (1) Additional Instructions: This follow up is with [facility] Within 7 to [address] [place] [address]- Business (1) Additional Instructions: Call for followup appointment - regarding sacral wound and perirectal fistula Ja Pérez Within 2 to 4 weeks [address], [address] [phone] Business (1) Additional Instructions: Call for followup appointment XXXX NONE In 0 days [place] Additional Instructions: Seizure, Adult Extracted from: Title:APSO Note-neurology Author:Jordy HARTMANN, Elvis ole Date:11/25/24 ASSESSMENT: New onset seizures, have resolved. They were generalized tonic-clonic seizures and occurred in the early childhood education specialist hours of November 22, 2024. She has now stable from a seizure standpoint. Unclear as to why she would have new onset seizures. She is on vedolizumab from the Crohn's and due to its immunosuppression, [employer]EN'[employer]OM ATTENDANT infection was initially my concern but her CSF has 0 total nucleated cells and PCR was negative. MRI brain with and without contrast from November 24, 2024 shows some medial right frontoparietal subcortical T2 hyperintensity, and there are portions of the surrounding cortex that mildly diffusion restrict, and one minuscule focus of brighter diffusion restriction on the cortex. I believe those changes could simply reflect the seizure activity that happened initially. My suspicion for an infectious etiology or an inflammatory etiology are low given her normal appearing CSF. We will check serum autoimmune encephalitis antibodies. I do not think the MRI findings reflect recent cerebrovascular event, despite the diffusion restriction changes they do not look consistent with stroke. PLAN: 1. CSF results pending: NMDA receptor antibody, culture 2. One day of continuous video EEG monitoring was unremarkable 3. Continue the Keppra 500 mg twice daily 4. We checked serum autoimmune encephalitis panel, ordered today 5. I think she needs a repeat MRI brain with and without contrast in 2 to 4 weeks. I think the subtle abnormality seen on MRI reflect recent seizure activity and they should completely resolve. If her follow-up imaging again looks abnormal it could prompt further workup. 6. I am generally okay with her being discharged. She is stable on the levetiracetam. Her bigger medical issues at this point are GI and skin related. Seizure precautions were discussed, including not driving. 1. Acute respiratory failure with hypoxia (J96.01: Acute respiratory failure with hypoxia) 1. Unspecified convulsions, (R56.9: Unspecified convulsions)Generalized seizure 3. Metabolic acidosis (E87.2: Acidosis) 4. Leukocytosis (D72.829: Elevated white blood cell count, unspecified) 5. Metabolic encephalopathy (G93.41: Metabolic encephalopathy) 6. Hypokalemia (E87.6: Hypokalemia) 7. Hypomagnesemia (E83.42: Hypomagnesemia) 8. Perianal fistula due to Crohn's disease (K50.913: Crohn's disease, unspecified, with fistula) 9. Crohn's disease (K50.90: Crohn's disease, unspecified, without complications) 10. Generalized anxiety disorder (F41.1: Generalized anxiety disorder) 11. Bipolar depression (F31.9: Bipolar disorder, unspecified) 12. Pressure ulcer of coccygeal region, stage 3 (L89.153: Pressure ulcer of sacral region, stage 3) 13. Pressure ulcer of left buttock, stage 3 (L89.323: Pressure ulcer of left buttock, stage 3) 14. Pressure ulcer of right buttock, stage 3 (L89.313: Pressure ulcer of right buttock, stage 3) 15. Protein-calorie malnutrition, severe (E43: Unspecified severe protein- calorie malnutrition) 16. Gram-positive bacteremia (R78.81: Bacteremia) Anal fistula, unspecified (K60.30: Anal fistula, unspecified) Extracted from: Title:APSO Note Author:Quinn Rodriguez III, DO Date:11/24/24 Patient is a 29-year-old fem jonathan with past medical history of anxiety, bipolar, Crohn's status post ileostomy, and perianal fistula secondary to perianal abscess who was admitted to [facility] on 11/22/2024 with new onset seizure activity. Now found to have possible bacteremia with unknown source (possible perirectal abscess/pressure ulcerations) on broad-spectrum antibiotics. Extubated 11/23/2024 11/23/2024 status post LP at bedside prior to extubation. MRI pending. Status post EEG. Neurology following. Pulm/crit consulted and extubated today. Trauma has evaluated the patient's perirectal/anal fistula. No further seizure activity. Patient is very anxious. ANO x 3 after extubation. Updated mother and discussed care plan with multidisciplinary care team and specialist following. Mother was at bedside for several of my visits and extubation. 11/24/24 - Stable for transfer to floor. Very emotionally labile. Has severe anxiety. No further seizure activity. Neurology following. Tolerating diet. Having significant hand output from rectal area. Has significant sacral wound and pressure ulcerations and history of perirectal abscess. Discussed with surgery who saw the patient and reviewed images and there is no drainable abscess. They recommended changing ABD pads and conservative management with her history of Crohn's and recommend close follow-up with her surgeon Dr. Thakkar as worked on her previously. Will discuss this with her and her family. MRI pending. Tolerating regular diet. Significant abdominal pain. 1. Acute respiratory failure with hypoxia (J96.01: Acute respiratory failure with hypoxia) Secondary to seizure activity. Extubated around 1:15 PM on 11/23/2024. Pulm/crit care following Weaned to room air. 2. Generalized seizure (R56.9: Unspecified convulsions) MRI pending. Neurology states the need to rule out PML and press. Status post LP on 11/23/2024. Results pending. Had unusual preceding headache prior to seizure activity. Prelim MRI results promising. Maintain empiric antibiotics, will de-escalate Status post EEG. Continue Keppra 500 mg twice daily per neurology. 3. Metabolic acidosis (E87.2: Acidosis) Improved. 4. Leukocytosis (D72.829: Elevated white blood cell count, unspecified) Likely secondary to infection versus reactive. Improved with antibiotics. Maintain antibiotics for now. Recheck blood cultures. Initial blood cultures positive possible contaminant. 5. Metabolic encephalopathy (G93.41: Metabolic encephalopathy) Multifactorial secondary to panic disorder/anxiety, seizure activity, acute infection. Concern for encephalitis and neurology workup pending. 6. Hypokalemia (E87.6: Hypokalemia) Improved with replacement. 7. Hypomagnesemia (E83.42: Hypomagnesemia) Improved with replacement. 8. Perianal fistula due to Crohn's disease (K50.913: Crohn's disease, unspecified, with fistula) Maintain broad-spectrum antibiotics. Evaluated by surgery. 9. Crohn's disease (K50.90: Crohn's disease, unspecified, without complications) Immunocompromise state. On vedolizumab. Pain management 10. Generalized anxiety disorder (F41.1: Generalized anxiety disorder) As needed anxiolytics. 11. Bipolar depression (F31.9: Bipolar disorder, unspecified) Continue home medications when able. 12. Pressure ulcer of coccygeal region, stage 3 (L89.153: Pressure ulcer of sacral region, stage 3) Wound care. Evaluated by surgery. 13. Pressure ulcer of left buttock, stage 3 (L89.323: Pressure ulcer of left buttock, stage 3) See #12 14. Pressure ulcer of right buttock, stage 3 (L89.313: Pressure ulcer of right buttock, stage 3) See #12 15. Protein-calorie malnutrition, severe (E43: Unspecified severe protein- calorie malnutrition) Extubated today. Encourage oral intake. Nutrition consult. 16. Gram-positive bacteremia (R78.81: Bacteremia) Possible sources include pressure ulcers, IV site, perirectal fistula. 1. Acute respiratory failure with hypoxia (J96.01: Acute respiratory failure with hypoxia) 1. Unspecified convulsions, (R56.9: Unspecified convulsions)Generalized seizure Ordered: CBC w/ Auto Diff Comprehensive Metabolic Panel eGFR 3. Metabolic acidosis (E87.2: Acidosis) 4. Leukocytosis (D72.829: Elevated white blood cell count, unspecified) 5. Metabolic encephalopathy (G93.41: Metabolic encephalopathy) 6. Hypokalemia (E87.6: Hypokalemia) 7. Hypomagnesemia (E83.42: Hypomagnesemia) 8. Perianal fistula due to Crohn's disease (K50.913: Crohn's disease, unspecified, with fistula) 9. Crohn's disease (K50.90: Crohn's disease, unspecified, without complications) 10. Generalized anxiety disorder (F41.1: Generalized anxiety disorder) 11. Bipolar depression (F31.9: Bipolar disorder, unspecified) 12. Pressure ulcer of coccygeal region, stage 3 (L89.153: Pressure ulcer of sacral region, stage 3) 13. Pressure ulcer of left buttock, stage 3 (L89.323: Pressure ulcer of left buttock, stage 3) 14. Pressure ulcer of right buttock, stage 3 (L89.313: Pressure ulcer of right buttock, stage 3) 15. Protein-calorie malnutrition, severe (E43: Unspecified severe protein- calorie malnutrition) 16. Gram-positive bacteremia (R78.81: Bacteremia) Anal fistula, unspecified (K60.30: Anal fistula, unspecified) Orders: Blood Culture Charcoal Blood Culture Charcoal Consult to Wound Care Magnesium Level Phosphorus Level Full code, regular diet, Lovenox for DVT prophylaxis. Extracted from: Title:Consult Note Author:Michael LEDESMA, Archie Lopez Date:11/24/24 Rola Aguilar is a 29 year- old female with extensive history of Crohn's disease known to GI service with multiple procedures within the last year including drainage of perirectal abscess with seton placement. Trauma consulted on 11/22, environmental emergencies planner surgeon felt there was no indication for EGS management. Imaging reviewed again today with attending Dr. Huggins at request of ICU team. Perirectal fistulous tract is demonstrated with no significant change from prior imaging. In discussion with ICU team there is spontaneous drainage. Would recommend allowing drainage to continue and pursuing medical management to reduce inflammation. - No indication for emergent surgical management - Would recommend GI consult for Crohn's management given chronic nature of illness - Discussed with ICU team Archie Rodriguez PA-C Trauma Surgery/Surgical Critical Care/Emergency General Surgery *For urgent issues arising after 4PM during the week or on weekends/holiday, please page the trauma/EGS attending environmental emergencies planner. This patient's plan of care was discussed with Trauma/Emergency General Surgery attending, Dr. Huggins Extracted from: Title:APSO Note-neurology Author:Jordy HARTMANN, Elvis ole Date:11/24/24 BACKGROUND: 29-year-old woman with history of Crohn's disease, has colostomy, recently struggling with Crohn's and complications of it such as fistulas. In the early childhood education specialist hours of November 22, 2024 she was discovered by her mother to be confused and flailing on the floor after her mother had heard some abnormal sounds coming from her room. The evening prior Rola had been complaining of a significant headache which was highly uncharacteristic for her. Her mother then witnessed what sounds like a generalized tonic-clonic seizure at home. She had several more generalized seizures on the way here. Eventually stabilized with medication and intubation. CT head and CT angiography studies unrevealing. Had lactic acidosis of 4.7. Troponin bumped up to 499. White count initially 26 and gradually downtrending. Platelet count initially 946 and downtrending. Was hooked up to continuous EEG. No further clinical events. ASSESSMENT: New onset seizures, have resolved. Stable from a seizure standpoint. Currently somewhat delirious, somewhat impulsive, pressured, emotionally labile. Unclear as to why she would have new onset seizures. 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 Still need to assess brain parenchyma with contrast-enhanced MR imaging. Need to rule out PML and PRES, among others. PLAN: 1. MRI brain with and without contrast 2. CSF results pending: NMDA receptor antibody, culture 3. 1 day of continuous video EEG monitoring was unremarkable 4. Continue the Keppra 500 mg twice daily 5. Repeat blood cultures are pending. 6. Further recommendations to follow 1. Acute respiratory failure with hypoxia (J96.01: Acute respiratory failure with hypoxia) 1. Unspecified convulsions, (R56.9: Unspecified convulsions)Generalized seizure 3. Metabolic acidosis (E87.2: Acidosis) 4. Leukocytosis (D72.829: Elevated white blood cell count, unspecified) 5. Metabolic encephalopathy (G93.41: Metabolic encephalopathy) 6. Hypokalemia (E87.6: Hypokalemia) 7. Hypomagnesemia (E83.42: Hypomagnesemia) 8. Perianal fistula due to Crohn's disease (K50.913: Crohn's disease, unspecified, with fistula) 9. Crohn's disease (K50.90: Crohn's disease, unspecified, without complications) 10. Generalized anxiety disorder (F41.1: Generalized anxiety disorder) 11. Bipolar depression (F31.9: Bipolar disorder, unspecified) 12. Pressure ulcer of coccygeal region, stage 3 (L89.153: Pressure ulcer of sacral region, stage 3) 13. Pressure ulcer of left buttock, stage 3 (L89.323: Pressure ulcer of left buttock, stage 3) 14. Pressure ulcer of right buttock, stage 3 (L89.313: Pressure ulcer of right buttock, stage 3) 15. Protein-calorie malnutrition, severe (E43: Unspecified severe protein- calorie malnutrition) 16. Gram-positive bacteremia (R78.81: Bacteremia) Anal fistula, unspecified (K60.30: Anal fistula, unspecified) Extracted from: Title:PCCM Consult Note Author:Sean Meehan PA-C, Ashlee Hernandez Date:11/23/24 1. Acute respiratory failure with hypoxia (J96.01: Acute respiratory failure with hypoxia) 2/2 new onset seizure-like activity Plan: - Pt was on AC/VC but did not tolerate well. She did poorly with SAT/SBT mostly due to agitation. Pt was extubated to NC and has since been weaned to RA. - Titrate O2 for sats 92-96% - CTA chest w/o acute findings - Aspiration precautions - Pt is currently on Cefepime and Vanco --> from a Pulmonary perspective, there does not seem to be any acute infection in the chest. Will defer abx management to the Primary team. VTE ppx: Lovenox GI ppx: PPI 2. Generalized seizure (R56.9: Unspecified convulsions) New onset seizures Concern for possible encephalitis vs ? c/b agitation Plan: - Neurology following - LP performed --> results pending - Continuous EEG unremarkable - Neuro recommended MRI - Continue Keppra - Seizure precautions - Continue precedex for agitation Orders: lorazepam, 2 mg = 1 mL, Injection, IV Push, Once, Stop date 11/23/24 14:43:00 EST, NOW, Start date 11/23/24 14:43:00 EST, 11/23/24 14:43:00 EST Extubation This patient has a high probability of sudden, clinically significant deterioration, which requires the highest level of LIP preparedness to intervene urgently. I managed/supervised life or organ supporting interventions that required frequent LIP assessment. I devoted my full attention to the direct care of this patient for the amount of time indicated below. Time I spent with family or surrogate(s) is included only if the patient was incapable of providing the necessary information or participating in medical decision making. Critical care documentation: The patient has the following organ/system impairments: Acute hypoxemic respiratory failure, New onset seizures Time spent providing critical services: 32 minutes. Time devoted to teaching and to any procedures I billed separately is not included. Addendum by Doroteo GILES, Alexa Hernandez on November 23, 2024 17:26:22 EST I have seen and evaluated the patient with the physician back office medical assistant. His history, physical exam, assessment and plan were done in collaboration. I performed an independent physical examination. I agree with all the above. Acute respiratory failure with hypoxia, likely due to new onset seizure-like activity Now extubated and tolerating okay but with significant anxiety Neurology on board and will await LP results. Plan for MRI. Critical care time is 32 minutes Alexa Sadler MD Extracted from: Title:APSO Note Author:Quinn Rodriguez III, DO Date:11/23/24 Patient is a 29-year-old fem jonathan with past medical history of anxiety, bipolar, Crohn's status post ileostomy, and perianal fistula secondary to perianal abscess who was admitted to [facility] on 11/22/2024 with new onset seizure activity. Now found to have possible bacteremia with unknown source (possible perirectal abscess/pressure ulcerations) on broad-spectrum antibiotics. Extubated 11/23/2024 11/23/2024 status post LP at bedside prior to extubation. MRI pending. Status post EEG. Neurology following. Pulm/crit consulted and extubated today. Trauma has evaluated the patient's perirectal/anal fistula. No further seizure activity. Patient is very anxious. ANO x 3 after extubation. Updated mother and discussed care plan with multidisciplinary care team and specialist following. Mother was at bedside for several of my visits and extubation. 1. Acute respiratory failure with hypoxia (J96.01: Acute respiratory failure with hypoxia) Secondary to seizure activity. Extubated around 1:15 PM on 11/23/2024. Pulm/crit care following Wean oxygen as tolerated. 2. Generalized seizure (R56.9: Unspecified convulsions) MRI pending. Neurology states the need to rule out PML and press. Status post LP on 11/23/2024. Results pending. Had unusual preceding headache prior to seizure activity. Maintain empiric antibiotics Status post EEG. Results pending. Continue Keppra 500 mg twice daily per neurology. 3. Metabolic acidosis (E87.2: Acidosis) Improved. Likely secondary to 4. Leukocytosis (D72.829: Elevated white blood cell count, unspecified) Likely secondary to infection versus reactive. Improved with antibiotics. Maintain antibiotics for now. Recheck blood cultures. 5. Metabolic encephalopathy (G93.41: Metabolic encephalopathy) Multifactorial secondary to panic disorder/anxiety, seizure activity, acute infection. Concern for encephalitis and neurology workup pending. 6. Hypokalemia (E87.6: Hypokalemia) Improved with replacement. 7. Hypomagnesemia (E83.42: Hypomagnesemia) Improved with replacement. 8. Perianal fistula due to Crohn's disease (K50.913: Crohn's disease, unspecified, with fistula) Maintain broad-spectrum antibiotics. Evaluated by surgery. 9. Crohn's disease (K50.90: Crohn's disease, unspecified, without complications) Immunocompromise state. On vedolizumab. Pain management with morphine while NPO. 10. Generalized anxiety disorder (F41.1: Generalized anxiety disorder) As needed anxiolytics. 11. Bipolar depression (F31.9: Bipolar disorder, unspecified) Continue home medications when able. 12. Pressure ulcer of coccygeal region, stage 3 (L89.153: Pressure ulcer of sacral region, stage 3) Wound care. Evaluated by surgery. 13. Pressure ulcer of left buttock, stage 3 (L89.323: Pressure ulcer of left buttock, stage 3) See #12 14. Pressure ulcer of right buttock, stage 3 (L89.313: Pressure ulcer of right buttock, stage 3) See #12 15. Protein-calorie malnutrition, severe (E43: Unspecified severe protein- calorie malnutrition) Extubated today. Encourage oral intake. Nutrition consult. 16. Gram-positive bacteremia (R78.81: Bacteremia) Possible sources include pressure ulcers, IV site, perirectal fistula. Anal fistula, unspecified (K60.30: Anal fistula, unspecified) Orders: fentanyl, 50 microgram = 1 mL, Injection, IV, q15min PRN Pain, Routine, Start date 11/23/24 13:33:00 EST, 11/23/24 13:33:00 EST morphine, 4 mg = 2 mL, Injection, IV Push, q2hr PRN Pain for 5 day(s), Stop date 11/28/24 13:32:00 EST, Routine, Start date 11/23/24 13:33:00 EST, 11/23/24 13:33:00 EST Consult to Pulmonology Full code, n.p.o. pending swallow eval s/p extubation, Lovenox for DVT prophylaxis. Extracted from: Title:APSO Note- Neurology Author:Michael Leon RN Date:11/23/24 29-year-old woman with histo ry of Crohn's disease, has colostomy, recently struggling with Crohn's and complications of it such as fistulas. In the early childhood education specialist hours of November 22, 2024 she was discovered by her mother to be confused and flailing on the floor after her mother had heard some abnormal sounds coming from her room. The evening prior Rola had been complaining of a significant headache which was highly uncharacteristic for her. Her mother then witnessed what sounds like a generalized tonic-clonic seizure at home. She had several more generalized seizures on the way here. Eventually stabilized with medication and intubation. CT head and CT angiography studies unrevealing. Had lactic acidosis of 4.7. Troponin bumped up to 499. White count initially 26 and gradually downtrending. Platelet count initially 946 and downtrending. Was hooked up to continuous EEG. No further clinical events. Unclear as to why she would have new onset seizures. She is on vedolizumab from the Crohn's and due to immunosuppression, [employer] infection should be a concern, especially given the preceding headaches prior to seizure onset. Hard to definitively say given the circumstances of intubation and sedation, but I did feel like she had some fairly mild nuchal rigidity today. And she also had Genet signs in bilateral upper extremities and a Babinski sign on the right. Consider encephalitis as well. Need to rule out PML and PRES. PLAN: 1. MRI brain with and without contrast 2. Lumbar puncture performed. Results that will be pending: Cell counts, glucose, protein, infectious PCR, culture, NMDA receptor antibody. 3. At least 18 hours of continuous EEG were unremarkable and we are discontinuing it 4. Continue the Keppra 500 mg twice daily 5. Preliminary blood cultures looking positive for gram-positive cocci in clusters. She is on cefepime. 6. Further recommendations to follow 1. Acute respiratory failure with hypoxia (J96.01: Acute respiratory failure with hypoxia) 2. Generalized seizure (R56.9: Unspecified convulsions) 3. Metabolic acidosis (E87.2: Acidosis) 4. Leukocytosis (D72.829: Elevated white blood cell count, unspecified) 5. Metabolic encephalopathy (G93.41: Metabolic encephalopathy) 6. Hypokalemia (E87.6: Hypokalemia) 7. Hypomagnesemia (E83.42: Hypomagnesemia) 8. Perianal fistula due to Crohn's disease (K50.913: Crohn's disease, unspecified, with fistula) 9. Crohn's disease (K50.90: Crohn's disease, unspecified, without complications) 10. Generalized anxiety disorder (F41.1: Generalized anxiety disorder) 11. Bipolar depression (F31.9: Bipolar disorder, unspecified) 12. Pressure ulcer of coccygeal region, stage 3 (L89.153: Pressure ulcer of sacral region, stage 3) 13. Pressure ulcer of left buttock, stage 3 (L89.323: Pressure ulcer of left buttock, stage 3) 14. Pressure ulcer of right buttock, stage 3 (L89.313: Pressure ulcer of right buttock, stage 3) 15. Protein-calorie malnutrition, severe (E43: Unspecified severe protein- calorie malnutrition) Anal fistula, unspecified (K60.30: Anal fistula, unspecified) Extracted from: Title:Admission H & P Author:Shelli Jaimes DO Date:11/22/24 Patient will be admitted und er inpatient status due to estimated length of stay greater than 2 midnights. All images, labs, EKGs were reviewed DVT PPx PAS bilaterally, Lovenox Ulcer PPx Protonix Diet NPO, TF if needed CODE STATUS full code Sedation propofol, Precedex Drips none Restraints- reevaluated Ventilator 50% FiO2, 300 VT, 5 PEEP, 12 RR Antibiotics none IVFs normal saline ETT intubated 3/2 Lines PIV 1. Acute respiratory failure with hypoxia (J96.01: Acute respiratory failure with hypoxia) Secondary to seizure, GCS was 3 on arrival Trend ABGs Intubated 3/2 Consult pulmonary for ventilator management Pulmonary toilet When able will attempt SBT's Ordered: Critical Care Ill/Injured Pt Initial 30-74 Min 61330 2. Generalized seizure (R56.9: Unspecified convulsions) No history of seizures Loaded with Keppra in ED along with multiple doses of benzo Continue Keppra twice daily Neurology consult Seizure precautions 3. Metabolic acidosis (E87.2: Acidosis) Possibly secondary to seizures Trend Status post IV fluids 4. Leukocytosis (D72.829: Elevated white blood cell count, unspecified) Likely reactive Trend Check Pro-Heriberto If Pro-Heriberto is positive and/or becomes febrile may start antibiotics 5. Metabolic encephalopathy (G93.41: Metabolic encephalopathy) Secondary to above Drug screen positive for marijuana use as well as benzos 6. Hypokalemia (E87.6: Hypokalemia) 2.9 on arrival Status post hip replacement Magnesium low Will replace and trend 7. Hypomagnesemia (E83.42: Hypomagnesemia) Magnesium 1.2 on arrival Replaced Trend and replace as needed 8. Perianal fistula due to Crohn's disease (K50.913: Crohn's disease, unspecified, with fistula) Chronic Will ask surgery to evaluate Possible rectovaginal fistula? 9. Crohn's disease (K50.90: Crohn's disease, unspecified, without complications) History of Crohn's disease Follows with GI [facility] Status post ileostomy hx of Vedolizumab use? 10. Generalized anxiety disorder (F41.1: Generalized anxiety disorder) Appears patient is on Suboxone 11. Bipolar depression (F31.9: Bipolar disorder, unspecified) does not appear to be on medications 12. Pressure ulcer of coccygeal region, stage 3 (L89.153: Pressure ulcer of sacral region, stage 3) Wound care Offload Wound consult 13. Pressure ulcer of left buttock, stage 3 (L89.323: Pressure ulcer of left buttock, stage 3) Wound care Offload Wound consult 14. Pressure ulcer of right buttock, stage 3 (L89.313: Pressure ulcer of right buttock, stage 3) Wound care Offload Wound consult 15. Protein-calorie malnutrition, severe (E43: Unspecified severe protein- calorie malnutrition) Ensure once able Nutrition consult Anal fistula, unspecified (K60.30: Anal fistula, unspecified) tx as above Orders: acetaminophen, 650 mg = 2 tab(s), Tab, OG-Tube, q6hr PRN Pain, Routine, Start date 11/22/24 7:37:00 EST, 11/22/24 7:37:00 EST dexmedetomidine 400 mcg [0.4 mcg/kg/hr] + Sodium Chloride 0.9% intravenous solution 100 mL, 100 mL, IV, 5.7 mL/hr, Routine, Start date 11/22/24 8:22:00 EST, 17.5 hour(s), Total volume (mL): 100, 0.2-1.5 mcg/kg/hr, 57 kg, 1.63, m2 enoxaparin, 40 mg = 0.4 mL, Injection, SubCutaneous, Daily for 30 day(s), Stop date 12/22/24 8:59:00 EDT, Routine, Start date 11/22/24 9:00:00 EST, 11/22/24 7:37:00 EST hydrALAZINE, 10 mg = 0.5 mL, Injection, IV Push, q6hr PRN Other (see comment), Routine, Start date 11/22/24 7:37:00 EST, 11/22/24 7:37:00 EST levetiracetam + Generic Diluent 100 mL, 500 mg = 100 mL, Soln-IV, IV Piggyback, BID, Routine, Start date 11/23/24 9:00:00 EST, 400 mL/hr, Infuse over 15 minute(s) levetiracetam + Generic Diluent 100 mL, 500 mg = 100 mL, Soln-IV, IV Piggyback, q14hr for 2 dose(s), Stop date 11/23/24 19:59:00 EST, Routine, Start date 11/22/24 16:00:00 EST, 400 mL/hr, Infuse over 15 minute(s) ondansetron, 4 mg = 2 mL, Injection, IV Push, q6hr PRN Nausea, Routine, Start date 11/22/24 7:37:00 EST, 11/22/24 7:37:00 EST pantoprazole, 40 mg = 10 mL, Injection, IV Push, Daily, Routine, Start date 11/22/24 9:00:00 EST, 11/22/24 8:22:00 EST propofol 1,000 mg [10 mcg/kg/min] + Generic Diluent 100 mL, 100 mL, IV, 3.42 mL/hr, Routine, Start date 11/22/24 8:22:00 EST, 29.2 hour(s), Total volume (mL): 100, 5-70 mcg/kg/min, Initial infusion rate 10 microgram/kg/min, adjust infusion rate by 5 microgram/kg/min q5min PRN to achieve sedation goal., 57 kg,... Activity As Tolerated Add on Test Basic Metabolic Panel Below the Knee Intermittent Pneumatic Compression Device Blood Gas Art, with Lytes, Gluc, Lact CBC w/ Auto Diff Change Attending Communication Order Physician to Nursing Communication Order Physician to Nursing Communication Order Physician to Nursing Communication Order Physician to Nursing Communication Order Physician to Nursing Consult to Neurology Elevate Head of Bed Focused Assessment - Neurological Intake and Output NPO Diet Oxygen Protocol Oxygen Protocol Pad Siderails Procalcitonin Pulse Oximetry Restraint Evaluate Need to Continue After 24 Hours Restraint Initiate Non-Violent / [id number]-[id number]-Bfvjanwcbyf Behavior Restraint Monitoring Non-Violent / Non-Self- Destructive Behavior Restraint Progress Note Resuscitation Status - Full TSH With T4fr Reflex Vital Signs Vital Signs Weight This patient has a high probability of sudden, clinically significant deterioration, which requires the highest level of LIP preparedness to intervene urgently. I managed/supervised life or organ supporting interventions that required frequent LIP assessment. I devoted my full attention to the direct care of this patient for the amount of time indicated below. Time I spent with family or surrogate(s) is included only if the patient was incapable of providing the necessary information or participating in medical decision making. Critical care documentation: The patient has the following organ/system impairments: Brain, heart, kidneys Time spent providing critical services: 45 minutes. Time devoted to teaching and to any procedures I billed separately is not included. Extracted from: Title:Consult Note-neurology Author:Jordy HARTMANN N ichole Date:11/22/24 The patient is a 29-year-old female with history of Crohn's disease requiring colostomy/ileostomy who was admitted to the hospital for new onset seizure-like activity manifest as tonic type movements which were recurrent in the emergency room requiring intubation for airway protection. The patient was given Versed in the EMS and loaded with Keppra in the emergency room. The patient is currently on Keppra 500 mg twice a day. The patient is intubated and sedated with limited neurological exam. The patient may have new onset seizure from a underlying medical condition, metabolic abnormality, or infection. Patient did have a CT scan of the brain which did not reveal evidence of acute or chronic structural problem which may predispose to seizure. I recommend continuing Keppra 500 mg IV twice a day. I recommend continuous video EEG monitoring for subclinical and recurrent seizures. I recommend an MRI scan of the brain to assess for an acute or chronic structural lesion which may predispose to seizures. I recommend repeating blood work to assess for infection as a possible source new-onset seizures. I will consider recommending CSF analysis for further evaluation based upon the patient's clinical course and the above results. I discussed with the hospitalist empiric antibiotic therapy. I discussed the possible diagnoses, evaluation, treatment options at length with the patient's mother. Discussed the case with the hospitalist. I will continue to follow patient closely. 1. Acute respiratory failure with hypoxia (J96.01: Acute respiratory failure with hypoxia) 2. Generalized seizure (R56.9: Unspecified convulsions) 3. Metabolic acidosis (E87.2: Acidosis) 4. Leukocytosis (D72.829: Elevated white blood cell count, unspecified) 5. Metabolic encephalopathy (G93.41: Metabolic encephalopathy) 6. Hypokalemia (E87.6: Hypokalemia) 7. Hypomagnesemia (E83.42: Hypomagnesemia) 8. Perianal fistula due to Crohn's disease (K50.913: Crohn's disease, unspecified, with fistula) 9. Crohn's disease (K50.90: Crohn's disease, unspecified, without complications) 10. Bipolar depression (F31.9: Bipolar disorder, unspecified) 11. Pressure ulcer of coccygeal region, stage 3 (L89.153: Pressure ulcer of sacral region, stage 3) 12. Pressure ulcer of left buttock, stage 3 (L89.323: Pressure ulcer of left buttock, stage 3) 13. Pressure ulcer of right buttock, stage 3 (L89.313: Pressure ulcer of right buttock, stage 3) Anal fistula, unspecified (K60.30: Anal fistula, unspecified) Extracted from: Title:ED Note Author:Alfred Graham DO Date :11/22/24 Acidosis, lactic (E87.20: Ac idosis, unspecified) Acute respiratory failure with hypoxia (J96.01: Acute respiratory failure with hypoxia) Generalized seizure (R56.9: Unspecified convulsions) Hypokalemia (E87.6: Hypokalemia) Hypomagnesemia (E83.42: Hypomagnesemia) Orders: dexmedetomidine 400 mcg [1 mcg/kg/hr] + Sodium Chloride 0.9% intravenous solution 100 mL, 100 mL, IV, 14.25 mL/hr, STAT, Start date 11/22/24 5:46:00 EST, 7 hour(s), Total volume (mL): 100, 0.2-1.5 mcg/kg/hr, every 15 minutes bidirectionally, 57 kg, 1.63, m2 etomidate, 20 mg = 10 mL, Soln-IV, IV Push, Once, Stop date 11/22/24 3:42:00 EST, STAT, Start date 11/22/24 3:42:00 EST, 11/22/24 3:42:00 EST fentanyl, 100 microgram = 2 mL, Injection, IV Push, Once, Stop date 11/22/24 5:08:00 EST, STAT, Start date 11/22/24 5:08:00 EST, 11/22/24 5:08:00 EST levetiracetam + Generic Diluent 100 mL, 1,000 mg = 100 mL, IV Piggyback, Once, Stop date 11/22/24 4:07:00 EST, STAT, Start date 11/22/24 4:07:00 EST, 400 mL/hr, Infuse over 15 minute(s), 11/22/24 4:07:00 EST lorazepam, 2 mg = 1 mL, Injection, IV Push, Once, Stop date 11/22/24 6:00:00 EST, Routine, Start date 11/22/24 6:00:00 EST, 11/22/24 5:28:00 EST magnesium sulfate + Generic Diluent 50 mL, 2 gram = 50 mL, IV Piggyback, Once, Stop date 11/22/24 5:16:00 EST, STAT, Start date 11/22/24 5:16:00 EST, 25 mL/hr, Infuse over 2 hour(s), 11/22/24 5:16:00 EST naloxone, 2 mg = 2 mL, Injection, IV, Once, Stop date 11/22/24 3:29:00 EST, Start date 11/22/24 3:29:00 EST potassium chloride + Generic Diluent 100 mL, 20 mEq = 100 mL, IV Piggyback, q2hr for 2 dose(s), Stop date 11/22/24 9:15:00 EST, STAT, Start date 11/22/24 5:16:00 EST, 50 mL/hr, Infuse over 2 hour(s), 11/22/24 5:16:00 EST propofol, 40 mg = 4 mL, Emulsion, IV, Once, Stop date 11/22/24 5:29:00 EST, STAT, Start date 11/22/24 5:29:00 EST, 11/22/24 5:29:00 EST propofol, 20 mg = 2 mL, Emulsion, IV, Once, Stop date 11/22/24 5:29:00 EST, STAT, Start date 11/22/24 5:29:00 EST, 11/22/24 5:29:00 EST propofol, 30 mg = 3 mL, Emulsion, IV, Once, Stop date 11/22/24 5:29:00 EST, STAT, Start date 11/22/24 5:29:00 EST, 11/22/24 5:29:00 EST propofol 1,000 mg [10 mcg/kg/min] + Generic Diluent 100 mL, 100 mL, IV, 3.42 mL/hr, Routine, Start date 11/22/24 3:42:00 EST, 29.2 hour(s), Total volume (mL): 100, 5-70 mcg/kg/min, Initial infusion rate 10 microgram/kg/min, adjust infusion rate by 5 microgram/kg/min q5min PRN to achieve sedation goal., 57 kg,... rocuronium, 50 mg = 5 mL, Soln-IV, IV Push, Once, Stop date 11/22/24 3:42:00 EST, STAT, Start date 11/22/24 3:42:00 EST Sodium Chloride 0.9% intravenous solution, 1,000 mL, IV, Stop date 11/22/24 3:39:00 EST, Start date 11/22/24 3:39:00 EST Sodium Chloride 0.9% intravenous solution 1,000 mL, 1,000 mL, IV, 125 mL/hr, STAT, Start date 11/22/24 6:21:00 EST, 8 hour(s), Total volume (mL): 1,000, 57 kg, 1.63, m2 Ammonia Level Basic Metabolic Panel Beta hCG Quantitative Blood Culture Charcoal Blood Culture Charcoal Blood Gas Art, with Lytes, Gluc, Lact Blood Gas Art, with Lytes, Gluc, Lact CBC w/ Auto Diff Communication Order Physician to Nursing Consult to Tele-Neurology Continuous Pulse Oximetry CT Abdomen/Pelvis w/ Contrast CT Head or Brain w/o Contrast CT Spine Cervical w/o Contrast CTA Chest CTA Head Drug Screen Urine ED Cardiac Monitoring ED Physician consult Hospitalist for continued care eGFR Ethanol Level Focused Assessment - Neurological Hepatic Function Panel Lactic Acid Lactic Acid Magnesium Level Nasogastric/Orogastric Tube Insertion Oxygen Therapy PT & PTT Routine Capillary Glucose POC Troponin 0 Hr. Troponin 3 Hr. Troponin 6 Hr. UA with Cult Rflx Urinary Catheter Insertion Ventilator Settings [facility] 03-05-2025 NoteProgress Note-Physician Assessment/Plan ASSESSMENT: New onset seizures, have resolved. They were generalized tonic-clonic seizures and occurred in the early childhood education specialist hours of November 22, 2024. She has now stable from a seizure standpoint. Unclear as to why she would have new onset seizures. She is on vedolizumab from the Crohn's and dueto its immunosuppression, [employer]ENDANT infection was initially my concern but her CSF has 0 total nucleated cells and PCR was negative. MRI brain with and without contrast from November 24, 2024 shows some medialright frontoparietal subcortical T2 hyperintensity, and there are portions of the surrounding cortex that mildly diffusion restrict, and one minuscule focus of brighter diffusion restriction on the cortex. I believe those changes could simply reflect the seizure activity that happened initially. Mysuspicion for an infectious etiology or an inflammatory etiology are low given her normal appearingCSF. We will check serum autoimmune encephalitis antibodies. I do not think the MRI findings reflect recent cerebrovascular event, despite the diffusion restriction changes they do not look consistent with stroke. PLAN: 1. CSF results pending: NMDA receptor antibody, culture 2. One day of continuous video EEG monitoring was unremarkable 3. Continue the Keppra 500 mg twice daily 4. We checked serum autoimmune encephalitis panel, ordered today 5. I think she needs a repeat MRI brain with and without contrast in 2 to 4 weeks. I think the subtle abnormality seen on MRI reflect recent seizure activity and they should completely resolve. If her follow-up imaging again looks abnormal it could prompt further workup. 6. I am generally okay with her being discharged. She is stable on the levetiracetam. Her bigger medical issues at this point are GI and skin related. Seizure precautions were discussed, including not driving. 1. Acute respiratory failure with hypoxia (J96.01: Acute respiratory failure with hypoxia) 1. Unspecified convulsions, (R56.9: Unspecified convulsions)Generalized seizure 3. Metabolic acidosis (E87.2: Acidosis) 4. Leukocytosis (D72.829: Elevated white blood cell count, unspecified) 5. Metabolic encephalopathy (G93.41: Metabolic encephalopathy) 6. Hypokalemia (E87.6: Hypokalemia) 7. Hypomagnesemia (E83.42: Hypomagnesemia) 8. Perianal fistula due to Crohn's disease (K50.913: Crohn's disease, unspecified, with fistula) 9. Crohn's disease (K50.90: Crohn's disease, unspecified, without complications) 10. Generalized anxiety disorder (F41.1: Generalized anxiety disorder) 11. Bipolar depression (F31.9: Bipolar disorder, unspecified) 12. Pressure ulcer of coccygeal region, stage 3 (L89.153: Pressure ulcer of sacral region, stage 3) 13. Pressure ulcer of left buttock, stage 3 (L89.323: Pressure ulcer of left buttock, stage 3) 14. Pressure ulcer of right buttock, stage 3 (L89.313: Pressure ulcer of right buttock, stage 3) 15. Protein-calorie malnutrition, severe (E43: Unspecified severe protein- calorie malnutrition) 16. Gram-positive bacteremia (R78.81: Bacteremia) Anal fistula, unspecified (K60.30: Anal fistula, unspecified) Subjective She denies headaches. She is in better spirits. Still has some emotional lability. Is very anxious to go home. Objective Vitals & Measurements T: 36.7 ???C(Oral) TMIN: 36.5 ???C(Axillary) TMAX: 36.7 ???C(Oral) HR: 110(Monitored) RR: 13 BP: 116/78 SpO2: 100% WT: 52.3 kg Intake & Output This visit (24 hour periods starting at 07:00 EST) 11/25/24 * 11/24/24 11/23/24 Total Summary Intake mL -- 1,004.46 1,855.35 Output mL -- 2,425 750 Fluid Balance -- -1,420.54 1,105.35 Intake (14) Dextrose 5% with 0.45% NaCl intravenous solution 1,000 mL mL -- -- 520.31 Generic Diluent, levetiracetam mL -- 178.59 92.73 Generic Diluent, magnesium sulfate mL -- 71.78 -- Oral Intake mL -- 60 -- Sodium Chloride 0.9%, cefepime mL -- 294.04 309.18 Sodium Chloride 0.9%, vancomycin mL -- 337.53 527.69 dexmedetomidine 400 mcg [0.4 mcg/kg/hr] + Sodium Chloride 0.9% intravenous solution 100 mL mL -- 44.02 156.59 fentanyl mL -- -- 2 fentanyl 1,000 mcg [50 mcg/hr] + Sodium Chloride 0.9% intravenous solution 100 mL mL -- -- 115.38 glucose mL -- -- 50 lorazepam mL -- 1.5 1.5 morphine mL -- 7 5 pantoprazole mL -- 10 10 propofol 1,000 mg [10 mcg/kg/min] + Generic Diluent 100 mL mL -- -- 64.97 Total -- 1,004.46 1,855.35 Output (5) Residual Amount mL -- -- 30 Residual Discarded mL -- -- -- Stool Volume mL -- 325 -- Urine Catheter mL -- 1,800 720 Urine Voided mL -- 300 -- Total -- 2,425 750 Counts (0) * This column has not completed the indicated time period. Physical Exam GEN: General appearance normal. Well-kempt. No distress. No visualized deformities or trauma. Colostomy bag CARDIO/VASC: Limbs without (more content not included)...[facility]:Result Comment: Electronically Signed By: Carolyn Spence RN\.br\Date and Time Signed: 11/25/24 09:27 EST\.br\Electronically Co- Signed By: Ted Petersen DO\.br\Date and Time Co-Signed: 11/25/24 11:31 EST 11-24-2024 NoteCritical Care Progress Note Assessment/Plan 1. Acute respiratory failure with hypoxia (J96.01: Acute respiratory failure with hypoxia) 2/2 new onset seizure-like activity Plan: - Weaned to RA - Titrate O2 for sats 92-96% - CTA chest w/o acute findings - Aspiration precautions - Pt is currently on Cefepime and Vanco --> from a Pulmonary perspective, there does not seem wai any acute infection in the chest. Will defer abx management to the Primary team. VTE ppx: Lovenox GI ppx: PPI 1. Unspecified convulsions, (R56.9: Unspecified convulsions)Generalized seizure New onset seizures Concern for possible encephalitis vs ? c/b agitation Plan: - Neurology following - LP performed --> results pending - Continuous EEG unremarkable - Continue precedex for agitation - Neuro recommended MRI --> will plan to obtain today if the pt can be weaned off of the precedex - Continue Keppra - Seizure precautions Orders: lorazepam, 2 mg = 1 mL, Injection, IV Push, Once, Stop date 11/23/24 14:43:00 EST, NOW, Start date 11/23/24 14:43:00 EST, 11/23/24 14:43:00 EST magnesium sulfate + Generic Diluent 100 mL, 4 gram = 100 mL, IV Piggyback, Once, Stop date 11/25/2511:00:00 EST, Routine, Start date 11/24/24 12:00:00 EST, 25 mL/hr, Infuse over 4 hour(s), 11/24/24 11:21:00 EST Extubation Regular Diet This patient has a high probability of sudden, clinically significant deterioration, which requiresthe highest level of LIP preparedness to intervene urgently. I managed/supervised life or organ supporting interventions that required frequent LIP assessment. I devoted my full attention to the direct care of this patient for the amount of time indicated below. Time I spent with family or surrogate(s) is included only if the patient was incapable of providing the necessary information or participating in medical decision making. Critical care documentation: The patient has the following organ/system impairments: Acute hypoxemic respiratory failure, New onset seizures Time spent providing critical services: 32 minutes. Time devoted to teaching and to any procedures I billed separately is not included. 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 History obtained from chart and pt's mother d/t the pt being intubated and sedated. According to the pt's mother, pt was found at home unresponsive and experiencing seizure-like activity. Pt does not have any history of seizures. EMS was called and the pt was brought to the ED for evaluation. EMS reported to ED staff that the pt had 3 more seizure-like episodes en route to the ED. In the ED, the pt arrived having what appeared to be an active seizure. Her seizure ceased with medications but she hada GCS of 3. Pt was intubated in the ED. Laboratory workup revealed WBC 26, plts 799, K+ 2.9, Mg +1.2, but otherwise unremarkable. Initial ABG showed 7.23/40/233 on 50% FiO2. Lactate was 9.6. CTA chest obtained which was neg for PE or acute infiltrates. Utox + benzos and cannabis. Pt was started on sedation, keppra, and admitted to the ICU for further management. [facility] in management of the pt's acute hypoxemic respiratory failure. 11/24: Pt was agitated o/n. She has been on precedex but has been titrated down. Pt continues to be agitated and refused the echo this AM. She is agreeable to obtaining the MRI. She has been weaned to RA. Objective Vitals & Measurements T: 36.4 ???C(Axillary) TMIN: 36.2 ???C(Axillary) TMAX: 36.8 ???C(Oral) HR: 63(Monitored) RR: 15 BP:93/71 SpO2: 100% Intake & Output This visit (24 hour periods starting at 07:00 EST) 11/24/24 * 11/23/24 11/22/24 Total Summary Intake mL 11.5 1,845.37 4,417 Output mL 1,800 750 2,235 Fluid Balance -1,788.5 1,095.37 2,182 Intake (17) Dextrose 5% with 0.45% NaCl intravenous solution 1,000 mL mL -- 520.31 536.23 Generic Diluent, levetiracetam mL -- 92.73 194.44 Generic Diluent, magnesium sulfate mL -- -- 29.58 Generic Diluent, potassium chloride mL -- -- 165.06 Oral Intake mL -- -- -- Sodium Chloride 0.9% intravenous solution 1,000 mL mL -- -- 2,012.66 Sodium Chloride 0.9%, cefepime mL -- 309.18 363.9 Sodium Chloride 0.9%, vancomycin mL -- 527.69 531.36 dexmedetomidine 400 mcg [0.4 mcg/kg/hr] + Sodium Chloride 0.9% intravenous solution 100 mL mL -- 146.61 75.42 fentanyl mL -- 2 3 fentanyl 1,000 mcg [50 mcg/hr] + Sodium Chloride 0.9% intravenous solution 100 mL mL -- 115.38 192.53 glucose mL -- 50 -- lorazepam mL 0.5 1.5 1.5 morphine mL 1 5 -- norepinephrine 8 mg [0.05 mcg/kg/min] + Dextrose 5% in Water intravenous solution 250 mL mL -- -- 1.54 pantoprazole mL 10 10 10 propofol 1,000 mg [10 mcg/kg/min] + Generic Diluent 100 mL mL (more content not included)...[facility] NoteProgress Note-Physician Assessment/Plan Patient is a 29-year-old female with past medical history of anxiety, bipolar, Crohn's status post ileostomy, and perianal fistula secondary to perianal abscess who was admitted to [facility] on 11/22/2024 with new onset seizure activity. Now found to have possible bacteremia with unknown source (possible perirectal abscess/pressure ulcerations) on broad-spectrum antibiotics. Extubated 11/23/2024 11/23/2024???status post LP at bedside prior to extubation. MRI pending. Status post EEG. Neurology following. Pulm/crit consulted and extubated today. Trauma has evaluated the patient's perirectal/anal fistula. No further seizure activity. Patient is very anxious. ANO x 3 after extubation. Updated mother and discussed care plan with multidisciplinary care team and specialist following. Mother was at bedside for several of my visits and extubation. 11/24/24 - Stable for transfer to floor. Very emotionally labile. Has severe anxiety. No further seizure activity. Neurology following. Tolerating diet. Having significant hand output from rectal area.Has significant sacral wound and pressure ulcerations and history of perirectal abscess. Discussed with surgery who saw the patient and reviewed images and there is no drainable abscess. They recommended changing ABD pads and conservative management with her history of Crohn's and recommend close follow-up with her surgeon Dr. Thakkar as worked on her previously. Will discuss this with her and her family. MRI pending. Tolerating regular diet. Significant abdominal pain. 1. Acute respiratory failure with hypoxia (J96.01: Acute respiratory failure with hypoxia) Secondary to seizure activity. Extubated around 1:15 PM on 11/23/2024. Pulm/crit care following Weaned to room air. 2. Generalized seizure (R56.9: Unspecified convulsions) MRI pending. Neurology states the need to rule out PML and press. Status post LP on 11/23/2024. Results pending. Had unusual preceding headache prior to seizure activity. Prelim MRI results promising. Maintain empiric antibiotics, will de-escalate Status post EEG. Continue Keppra 500 mg twice daily per neurology. 3. Metabolic acidosis (E87.2: Acidosis) Improved. 4. Leukocytosis (D72.829: Elevated white blood cell count, unspecified) Likely secondary to infection versus reactive. Improved with antibiotics. Maintain antibiotics for now. Recheck blood cultures. Initial blood cultures positive possible contaminant. 5. Metabolic encephalopathy (G93.41: Metabolic encephalopathy) Multifactorial secondary to panic disorder/anxiety, seizure activity, acute infection. Concern for encephalitis and neurology workup pending. 6. Hypokalemia (E87.6: Hypokalemia) Improved with replacement. 7. Hypomagnesemia (E83.42: Hypomagnesemia) Improved with replacement. 8. Perianal fistula due to Crohn's disease (K50.913: Crohn's disease, unspecified, with fistula) Maintain broad-spectrum antibiotics. Evaluated by surgery. 9. Crohn's disease (K50.90: Crohn's disease, unspecified, without complications) Immunocompromise state. On vedolizumab. Pain management 10. Generalized anxiety disorder (F41.1: Generalized anxiety disorder) As needed anxiolytics. 11. Bipolar depression (F31.9: Bipolar disorder, unspecified) Continue home medications when able. 12. Pressure ulcer of coccygeal region, stage 3 (L89.153: Pressure ulcer of sacral region, stage 3) Wound care. Evaluated by surgery. 13. Pressure ulcer of left buttock, stage 3 (L89.323: Pressure ulcer of left buttock, stage 3) See #12 14. Pressure ulcer of right buttock, stage 3 (L89.313: Pressure ulcer of right buttock, stage 3) See #12 15. Protein-calorie malnutrition, severe (E43: Unspecified severe protein- calorie malnutrition) Extubated today. Encourage oral intake. Nutrition consult. 16. Gram-positive bacteremia (R78.81: Bacteremia) Possible sources include pressure ulcers, IV site, perirectal fistula. 1. Acute respiratory failure with hypoxia (J96.01: Acute respiratory failure with hypoxia) 1. Unspecified convulsions, (R56.9: Unspecified convulsions)Generalized seizure Ordered: CBC w/ Auto Diff Comprehensive Metabolic Panel eGFR 3. Metabolic acidosis (E87.2: Acidosis) 4. Leukocytosis (D72.829: Elevated white blood cell count, unspecified) 5. Metabolic encephalopathy (G93.41: Metabolic encephalopathy) 6. Hypokalemia (E87.6: Hypokalemia) 7. Hypomagnesemia (E83.42: Hypomagnesemia) 8. Perianal fistula due to Crohn's disease (K50.913: Crohn's disease, unspecified, with fistula) 9. Crohn's disease (K50.90: Crohn's disease, unspecified, without complications) 10. Generalized anxiety disorder (F41.1: Generalized anxiety disorder) 11. Bipolar depression (F31.9: Bipolar disorder, unspecified) 12. Pressure ulcer of coccygeal region, stage 3 (L89.153: Pressure ulcer of sacral region, stage 3) 13. Pressure ulcer of left buttock, stage 3 (L89.323: Pressure ulcer of l (more content not included)...[facility] SystemComment on above:Result Comment: Electronically Signed By: Quinn Rodriguez III, DO.br\Date and Time Signed: 11/24/24 21:34 [id number] NoteConsultation Note Reason for Consultation Perirectal fistula Images IMPRESSION: Diffuse colitis, similar to prior. Terminal ileitis, possibly improved from prior. Perirectal fistula, grossly unchanged. Assessment/Plan Rola Aguilar is a 29 year-old female with extensive history of Crohn's disease known to GI service with multiple procedures within the last year including drainage of perirectal abscess with seton placement. Trauma consulted on 11/22, environmental emergencies planner surgeon felt there was no indication for EGS management.Imaging reviewed again today with attending Dr. Huggins at request of ICU team. Perirectal fistulous tract is demonstrated with no significant change from prior imaging. In discussion with ICU team there is spontaneous drainage. Would recommend allowing drainage to continue and pursuing medical management to reduce inflammation. - No indication for emergent surgical management - Would recommend GI consult for Crohn's management given chronic nature of illness - Discussed with ICU team Archie Rodriguez PA-C Trauma Surgery/Surgical Critical Care/Emergency General Surgery *For urgent issues arising after 4PM during the week or on weekends/holiday, please page the trauma/EGS attending environmental emergencies planner. This patient's plan of care was discussed with Trauma/Emergency General Surgery attending, Dr. Huggins Problem List/Past Medical History Ongoing Anxiety disorder due to medical condition Bipolar depression Crohn's disease Generalized anxiety disorder H/O psoriasis Mechanical deep vein thrombosis (DVT) prophylaxis in place Pressure ulcer of coccygeal region, stage 3 Pressure ulcer of left buttock, stage 3 Pressure ulcer of right buttock, stage 3 Protein-calorie malnutrition, severe S/P ileostomy Sinus tachycardia Smoker Vitamin A deficiency Historical Fistula Panic attacks Vitamin D deficiency Procedure/Surgical History Incision and drainage of ischiorectal and/or perirectal abscess (separate procedure) (07/20/2024), Incision and drainage of vulva or perineal abscess (07/20/2024), Placement of seton (07/20/2024), Surgical treatment of anal fistula (fistulectomy/fistulotomy); subcutaneous (07/20/2024), Colonoscopy, flexible; diagnostic, including collection of specimen(s) by brushing or washing, when performed (separate procedure) (01/20/2024), Small intestinal endoscopy, enteroscopy beyond second portion of duodenum, including ileum; diagnostic, with or without collection of specimen(s) by brushing or washing (separate procedure) (01/20/2024), delivery only; (10/24/2023), Salpingectomy, complete or partial, unilateral or bilateral (separate procedure) (10/24/2023), Colonoscopy (01/18/2023), Colonoscopy, flexible; diagnostic, including collection of specimen(s) by brushing or washing, when performed (separate procedure) (01/18/2023), Small intestinal endoscopy, enteroscopy beyond second portion of duodenum, including ileum; diagnostic, with or without collection of specimen(s) by brushing or washing (separate procedure) (01/18/2023), Colonoscopy (2013), Esophagogastroduodenoscopy, H/O: ileostomy, History of ileostomy. Medications Inpatient acetaminophen 325 mg Tab, 650 mg= 2 tab(s), OG-Tube, q6hr, PRN Ativan 2 mg/mL Injection, 1 mg= 0.5 mL, IV Push, q6hr, PRN cefepime + Sodium Chloride 0.9% intravenous solution 100 mL dexmedetomidine additive 400 mcg [0.4 mcg/kg/hr] + Premix Sodium Chloride 0.9% 100 mL docusate sodium 10 mg/mL Liquid, 100 mg= 10 mL, NG-Tube, BID enoxaparin 40 mg/0.4 mL SC Hannah, 40 mg= 0.4 mL, SubCutaneous, Daily fentanyl 50 mcg/mL injectable solution, 50 mcg= 1 mL, IV, q15min, PRN hydrALAZINE 20 mg/mL Inj, 10 mg= 0.5 mL, IV Push, q6hr, PRN levetiracetam additive + Generic Diluent 100 mL morphine, 4 mg= 1 mL, IV Push, q2hr, PRN naloxone 1 mg/mL Soln, 1 mg= 1 mL, IV Push, q2min, PRN pantoprazole 40 mg IV Inj, 40 mg= 10 mL, IV Push, Daily vancomycin + Sodium Chloride 0.9% intravenous solution 250 mL vancomycin IV PHARMACY TO DOSE, PHARMACY TO DOSE, IV, As Directed Zofran 4 mg/2 mL Injection, 4 mg= 2 mL, IV Push, q6hr, PRN Home Bentyl 10 mg Cap, 20 mg= 2 cap(s), Oral, QID cyproheptadine Entyvio Pen 108 mg/0.68 mL subcutaneous solution metoclopramide 10 mg oral tablet, disintegrating, 10 mg= 1 tab(s), Oral, q6hr, PRN ondansetron 4 mg Dis Tab, 4 mg= 1 tab(s), Oral, q6hr Percocet 5 mg-325 mg oral tablet, 1 tab(s), Oral, q6hr, PRN predniSONE 10 mg Tab, See Instructions predniSONE 10 mg Tab, 1 -, Oral, As Directed predniSONE 10 mg Tab, See Instructions predniSONE 10 mg Tab, as directed, Oral, As Directed promethazine 25 mg Tab, 25 mg= 1 tab(s), Oral, q4hr, PRN promethazine 25 mg Tab, 25 mg= 1 tab(s), Oral, q6hr, PRN, Not taking: uses zofran now Reglan Venofer Vistaril 25 mg Tab, 1-2 tab(s), Oral, QID, PRN, Not taking Zofran 4 mg Tab Zofran 4 mg Tab, 4 mg= 1 tab(s), Oral, q8hr, PRN Zofran ODT 4 mg Tab-Dis, 4 mg= 1 tab(s), Oral, q8h (more content not included)...[facility] SystemComment on above:Result Comment: Electronically Signed By: Michael LEDESMA, Archie Lopez\.br\Date and Time Signed: 11/24/24 13:04 EST\.br\Electronically Co-Signed By: Archie Huggins MD\.br\Date and Time Co-Signed: 11/24/24 14:28 [id number] NoteConsultation Note Reason for Consultation Perirectal fistula Images IMPRESSION: Diffuse colitis, similar to prior. Terminal ileitis, possibly improved from prior. Perirectal fistula, grossly unchanged. Assessment/Plan Rola Aguilar is a 29 year-old female with extensive history of Crohn's disease known to GI service with multiple procedures within the last year including drainage of perirectal abscess with seton placement. Trauma consulted on 11/22, environmental emergencies planner surgeon felt there was no indication for EGS management.Imaging reviewed again today with attending Dr. Huggins at request of ICU team. Perirectal fistulous tract is demonstrated with no significant change from prior imaging. In discussion with ICU team there is spontaneous drainage. Would recommend allowing drainage to continue and pursuing medical management to reduce inflammation. - No indication for emergent surgical management - Would recommend GI consult for Crohn's management given chronic nature of illness - Discussed with ICU team Archie Rodriguez PA-C Trauma Surgery/Surgical Critical Care/Emergency General Surgery *For urgent issues arising after 4PM during the week or on weekends/holiday, please page the trauma/EGS attending environmental emergencies planner. This patient's plan of care was discussed with Trauma/Emergency General Surgery attending, Dr. Huggins Problem List/Past Medical History Ongoing Anxiety disorder due to medical condition Bipolar depression Crohn's disease Generalized anxiety disorder H/O psoriasis Mechanical deep vein thrombosis (DVT) prophylaxis in place Pressure ulcer of coccygeal region, stage 3 Pressure ulcer of left buttock, stage 3 Pressure ulcer of right buttock, stage 3 Protein-calorie malnutrition, severe S/P ileostomy Sinus tachycardia Smoker Vitamin A deficiency Historical Fistula Panic attacks Vitamin D deficiency Procedure/Surgical History Incision and drainage of ischiorectal and/or perirectal abscess (separate procedure) (07/20/2024), Incision and drainage of vulva or perineal abscess (07/20/2024), Placement of seton (07/20/2024), Surgical treatment of anal fistula (fistulectomy/fistulotomy); subcutaneous (07/20/2024), Colonoscopy, flexible; diagnostic, including collection of specimen(s) by brushing or washing, when performed (separate procedure) (01/20/2024), Small intestinal endoscopy, enteroscopy beyond second portion of duodenum, including ileum; diagnostic, with or without collection of specimen(s) by brushing or washing (separate procedure) (01/20/2024), delivery only; (10/24/2023), Salpingectomy, complete or partial, unilateral or bilateral (separate procedure) (10/24/2023), Colonoscopy (01/18/2023), Colonoscopy, flexible; diagnostic, including collection of specimen(s) by brushing or washing, when performed (separate procedure) (01/18/2023), Small intestinal endoscopy, enteroscopy beyond second portion of duodenum, including ileum; diagnostic, with or without collection of specimen(s) by brushing or washing (separate procedure) (01/18/2023), Colonoscopy (2013), Esophagogastroduodenoscopy, H/O: ileostomy, History of ileostomy. Medications Inpatient acetaminophen 325 mg Tab, 650 mg= 2 tab(s), OG-Tube, q6hr, PRN Ativan 2 mg/mL Injection, 1 mg= 0.5 mL, IV Push, q6hr, PRN cefepime + Sodium Chloride 0.9% intravenous solution 100 mL dexmedetomidine additive 400 mcg [0.4 mcg/kg/hr] + Premix Sodium Chloride 0.9% 100 mL docusate sodium 10 mg/mL Liquid, 100 mg= 10 mL, NG-Tube, BID enoxaparin 40 mg/0.4 mL SC Hannah, 40 mg= 0.4 mL, SubCutaneous, Daily fentanyl 50 mcg/mL injectable solution, 50 mcg= 1 mL, IV, q15min, PRN hydrALAZINE 20 mg/mL Inj, 10 mg= 0.5 mL, IV Push, q6hr, PRN levetiracetam additive + Generic Diluent 100 mL morphine, 4 mg= 1 mL, IV Push, q2hr, PRN naloxone 1 mg/mL Soln, 1 mg= 1 mL, IV Push, q2min, PRN pantoprazole 40 mg IV Inj, 40 mg= 10 mL, IV Push, Daily vancomycin + Sodium Chloride 0.9% intravenous solution 250 mL vancomycin IV PHARMACY TO DOSE, PHARMACY TO DOSE, IV, As Directed Zofran 4 mg/2 mL Injection, 4 mg= 2 mL, IV Push, q6hr, PRN Home Bentyl 10 mg Cap, 20 mg= 2 cap(s), Oral, QID cyproheptadine Entyvio Pen 108 mg/0.68 mL subcutaneous solution metoclopramide 10 mg oral tablet, disintegrating, 10 mg= 1 tab(s), Oral, q6hr, PRN ondansetron 4 mg Dis Tab, 4 mg= 1 tab(s), Oral, q6hr Percocet 5 mg-325 mg oral tablet, 1 tab(s), Oral, q6hr, PRN predniSONE 10 mg Tab, See Instructions predniSONE 10 mg Tab, 1 -, Oral, As Directed predniSONE 10 mg Tab, See Instructions predniSONE 10 mg Tab, as directed, Oral, As Directed promethazine 25 mg Tab, 25 mg= 1 tab(s), Oral, q4hr, PRN promethazine 25 mg Tab, 25 mg= 1 tab(s), Oral, q6hr, PRN, Not taking: uses zofran now Reglan Venofer Vistaril 25 mg Tab, 1-2 tab(s), Oral, QID, PRN, Not taking Zofran 4 mg Tab Zofran 4 mg Tab, 4 mg= 1 tab(s), Oral, q8hr, PRN Zofran ODT 4 mg Tab-Dis, 4 mg= 1 tab(s), Oral, q8h (more content not included)...[facility]:Result Comment: Electronically Signed By: Archie Rodriguez PA-C\.br\Date and Time Signed: 11/24/24 13:04 EST\.br\Electronically Co-Signed By: Archie Huggins MD\.br\Date and Time Co-Signed: 11/24/24 14:28 [id number] NoteProgress Note - Pharmacy Vancomycin Pharmacy to Dose Consult Note Indication: Empiric Treatment Goal Range: AUC/CRISTINA: 400 - 600 RECOMMENDATIONS/ PLAN: Pharmacy consulted for vancomycin dosing for ROLA AGUILAR, a 29 Years old, Female who is beingtreated with vancomycin for empiric treatment. 1. Vancomycin therapy is still active, today is day 3 of treatment. Patient is receiving [id number] mg IV q12hr. 2. The most recent vancomycin levels were; Peak: 39 mcg/mL drawn at 03:19 on 11/24/24 and Trough: 25 mcg/mL drawn at 11:00 on 11/24/24. Based on these levels AUC is 777. These levels were drawn on day 3 of therapy. 3. The vancomycin AUC is not therapeutic, the following dosing adjustments have been made:The next dosewas started but due to elevated level decision was made to stop infusion after ~25% completion, RN aware. Plan to Hold vancomycin then restart at Vancomycin 1000 mg IV Q18hr. 4. The next paired levels are scheduled. Peak at 1300 on 11/26/24 and Trough at 0400 on 11/27/24. 5. A MRSA Nasal Swab is not appropriate at this time. We will follow patient renal function, vancomycin levels and doses with you during the course of therapy. Additional recommendations will appear in follow up notes. If you have any questions, please contact the pharmacy at [phone]. Age: 29 Years Allergies: HYDROmorphone Weight:Last Documented Weight and Type of Scale Used Last Documented Weight Weight Measured: 54.6 kg (11/23/24 06:41:00) Type of Scale Used Weight Measured Type of Scale: Bed Scale (digital) (11/22/24 07:46:00) Height: Last Documented Height/Length Last Documented Height/Length Height/Length Measured: 167 cm (11/23/24 09:44:00) CrCl: 94 mL/min Labs: WBC: 8.2 E9/L (11/24/24 03:19:00) RBC: 3.2 E12/L Low (11/24/24 03:19:00) HGB: 9.2 gm/dL Low (11/24/24 03:19:00) Hct: 28.1 % Low (11/24/24 03:19:00) MCV: 87.9 fL (11/24/24 03:19:00) MCH: 28.9 pg (11/24/24 03:19:00) MCHC: 32.9 gm/dL (11/24/24 03:19:00) RDW: 18.8 % High (11/24/24 03:19:00) Platelet: 312 E9/L (11/24/24 03:19:00) MPV: 6.7 fL (11/24/24 03:19:00) Neutro Auto: 82.8 % High (11/24/24 03:19:00) Lymph Auto: 8.7 % Low (11/24/24 03:19:00) Colbert Auto: 6.3 % (11/24/24 03:19:00) Eos Auto: 1.6 % (11/24/24 03:19:00) Basophil Auto: 0.6 % (11/24/24 03:19:00) Neutro Absolute: 6.8 E9/L (11/24/24 03:19:00) Lymph Absolute: 0.7 E9/L Low (11/24/24 03:19:00) Colbert Absolute: 0.5 E9/L (11/24/24 03:19:00) Eos Absolute: 0.1 E9/L (11/24/24 03:19:00) Basophil Absolute: 0.1 E9/L (11/24/24 03:19:00) Glucose Lvl: 77 mg/dL (11/24/24 03:19:00) BUN: 9 mg/dL (11/24/24 03:19:00) Creatinine: 0.8 mg/dL (11/24/24 03:19:00) eGFR: 102 mL/min/1.73 m2 (11/24/24 03:19:00) BUN/Creat Ratio: 11 (11/24/24 03:19:00) Sodium Lvl: 140 mmol/L (11/24/24 03:19:00) Potassium Lvl: 3.2 mmol/L Low (11/24/24 03:19:00) Chloride: 116 mmol/L High (11/24/24 03:19:00) CO2: 18 mmol/L Low (11/24/24 03:19:00) AGAP: 9 mEq/L (11/24/24 03:19:00) Calcium Lvl: 7.6 mg/dL Low (11/24/24 03:19:00) Alk Phos: 101 Int._Unit/L High (11/24/24 03:19:00) ALT: 17 Int._Unit/L (11/24/24 03:19:00) AST: 15 Int._Unit/L (11/24/24 03:19:00) Total Protein: 5.3 gm/dL Low (11/24/24 03:19:00) Albumin Lvl: 2.2 gm/dL Low (11/24/24 03:19:00) Globulin: 3.1 gm/dL (11/24/24 03:19:00) A/G Ratio: 0.7 Low (11/24/24 03:19:00) Bili Total: 0.5 mg/dL (11/24/24 03:19:00) Phosphorus: 3.8 mg/dL (11/24/24 03:19:00) Magnesium: 1.6 mg/dL (11/24/24 03:19:00) Vanco Tr: 25 mcg/mL Critical (11/24/24 11:00:00) Vanco Pk: 39 mcg/mL (11/24/24 03:19:00) Glucose Cap: 76 mg/dL (11/24/24 03:18:00) POC Device SN: [id number] (11/24/24 03:18:00) POC User ID: [id number] (11/24/24 03:18:00) POC Username: GURJIT DEGROOT (11/24/24 03:18:00)[facility] 11-24-2024 NoteProgress Note-Physician Assessment/Plan BACKGROUND: 29-year-old woman with history of Crohn's disease, has colostomy, recently struggling with Crohn's and complications of it such as fistulas. In the early childhood education specialist hours of November 22, 2024 she was discovered by her mother to be confused and flailing on the floor after her mother had heard some abnormal sounds coming from her room. The eveningprior Rola had been complaining of a significant headache which was highly uncharacteristic for her. Her mother then witnessed what sounds like a generalized tonic-clonic seizure at home. She had s everal more generalized seizures on the way here. Eventually stabilized with medication and intubation. CT head and CT angiography studies unrevealing. Had lactic acidosis of 4.7. Troponin bumped up to 499. White count initially 26 and gradually downtrending. Platelet count initially 946 and downtrending. Was hooked up to continuous EEG. No further clinical events. ASSESSMENT: New onset seizures, have resolved. Stable from a seizure standpoint. Currently somewhat delirious, somewhat impulsive, pressured, emotionally labile. Unclear as to why she would have new onset seizures. She is on vedolizumab from the Crohn's and dueto immunosuppression, [employer] ATTENDANT infection was initially my concern but her CSF has 0 total nucleated cells and PCR was negative. Still need to assess brain parenchyma with contrast-enhanced MR imaging. Need to rule out PML and PRES, among others. PLAN: 1. MRI brain with and without contrast 2. CSF results pending: NMDA receptor antibody, culture 3. 1 day of continuous video EEG monitoring was unremarkable 4. Continue the Keppra 500 mg twice daily 5. Repeat blood cultures are pending. 6. Further recommendations to follow 1. Acute respiratory failure with hypoxia (J96.01: Acute respiratory failure with hypoxia) 1. Unspecified convulsions, (R56.9: Unspecified convulsions)Generalized seizure 3. Metabolic acidosis (E87.2: Acidosis) 4. Leukocytosis (D72.829: Elevated white blood cell count, unspecified) 5. Metabolic encephalopathy (G93.41: Metabolic encephalopathy) 6. Hypokalemia (E87.6: Hypokalemia) 7. Hypomagnesemia (E83.42: Hypomagnesemia) 8. Perianal fistula due to Crohn's disease (K50.913: Crohn's disease, unspecified, with fistula) 9. Crohn's disease (K50.90: Crohn's disease, unspecified, without complications) 10. Generalized anxiety disorder (F41.1: Generalized anxiety disorder) 11. Bipolar depression (F31.9: Bipolar disorder, unspecified) 12. Pressure ulcer of coccygeal region, stage 3 (L89.153: Pressure ulcer of sacral region, stage 3) 13. Pressure ulcer of left buttock, stage 3 (L89.323: Pressure ulcer of left buttock, stage 3) 14. Pressure ulcer of right buttock, stage 3 (L89.313: Pressure ulcer of right buttock, stage 3) 15. Protein-calorie malnutrition, severe (E43: Unspecified severe protein- calorie malnutrition) 16. Gram-positive bacteremia (R78.81: Bacteremia) Anal fistula, unspecified (K60.30: Anal fistula, unspecified) Subjective She was extubated yesterday. Has been very anxious. Wants to leave. Frequently tearful. Very emotionally labile. Asking for her mom when her mom is in the room. No headache today related to the lumbar puncture. No tenderness or pain at the lumbar puncture site. Has pains lower down related to open wounds. CSF with 0 TNC's. Glucose on the CSF was about two thirds of her serum glucose so it is normal. CSF protein in the 20s. Objective Vitals & Measurements T: 36.4 ???C(Axillary) TMIN: 36.2 ???C(Axillary) TMAX: 36.8 ???C(Oral) HR: 63(Monitored) RR: 15 BP:93/71 SpO2: 100% Intake & Output This visit (24 hour periods starting at 07:00 EST) 11/24/24 * 11/23/24 11/22/24 Total Summary Intake mL 11.5 1,845.37 4,417 Output mL 1,800 750 2,235 Fluid Balance -1,788.5 1,095.37 2,182 Intake (17) Dextrose 5% with 0.45% NaCl intravenous solution 1,000 mL mL -- 520.31 536.23 Generic Diluent, levetiracetam mL -- 92.73 194.44 Generic Diluent, magnesium sulfate mL -- -- 29.58 Generic Diluent, potassium chloride mL -- -- 165.06 Oral Intake mL -- -- -- Sodium Chloride 0.9% intravenous solution 1,000 mL mL -- -- 2,012.66 Sodium Chloride 0.9%, cefepime mL -- 309.18 363.9 Sodium Chloride 0.9%, vancomycin mL -- 527.69 531.36 dexmedetomidine 400 mcg [0.4 mcg/kg/hr] + Sodium Chloride 0.9% intravenous solution 100 mL mL -- 146.61 75.42 fentanyl mL -- 2 3 fentanyl 1,000 mcg [50 mcg/hr] + Sodium Chloride 0.9% intravenous solution 100 mL mL -- 115.38 192.53 glucose mL -- 50 -- lorazepam mL 0.5 1.5 1.5 morphine mL 1 5 -- norepinephrine 8 mg [0.05 mcg/kg/min] + Dextrose 5% in Water intravenous solution 250 mL mL -- -- 1.54 pantoprazole mL 10 10 10 propofol 1,000 mg [10 mcg/kg/min] + Generic Diluent 100 mL mL -- 64.97 299.78 Total 11.5 1,845.37 4,417 (more content not included)...[facility]:Result Comment: Electronically Signed By: Carolyn Spence RN\.br\Date and Time Signed: 11/24/24 10:02 EST\.br\Electronically Co-Signed By: Ted Petersen DO\.br\Date and Time Co-Signed: 11/24/24 10:49 [id number] NoteConsultation Note Chief Complaint seizure Reason for Consultation Acute hypoxemic respiratory failure History of Present Illness Pt is a 29y F with past medical history significant for Crohn's disease, s/p ileostomy, 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 History obtained from chart and pt's mother d/t the pt being intubated and sedated. According to the pt's mother, pt was found at home unresponsive and experiencing seizure-like activity. Pt does not have any history of seizures. EMS was called and the pt was brought to the ED for evaluation. EMS reported to ED staff that the pt had 3 more seizure-like episodes en route to the ED. In the ED, the pt arrived having what appeared to be an active seizure. Her seizure ceased with medications but she hada GCS of 3. Pt was intubated in the ED. Laboratory workup revealed WBC 26, plts 799, K+ 2.9, Mg +1.2, but otherwise unremarkable. Initial ABG showed 7.23/40/233 on 50% FiO2. Lactate was 9.6. CTA chest obtained which was neg for PE or acute infiltrates. Utox + benzos and cannabis. Pt was started on sedation, keppra, and admitted to the ICU for further management. PCCM consulted to assist in management of the pt's acute hypoxemic respiratory failure. Review of Systems 12 point review of systems performed with patient, pertinent positives and negatives stated in HPI. Physical Exam Vitals & Measurements T: 36.7 ???C(Oral) TMIN: 36.4 ???C(Oral) TMAX: 36.8 ???C(Oral) HR: 82(Monitored) RR: 15 BP: 92/58 SpO2: 100% HT: 167 cm WT: 54.6 kg General: No acute distress Skin: Warm, dry Head: Atraumatic, normocephalic Neck: Trachea midline, no adenopathy, no tenderness Eye: PERRL, sclera anicteric ENMT: Moist mucous membranes Cardiovascular: Regular rate and rhythm. No murmurs, rubs, or gallops. No BLE edema. Respiratory: Tachypneic. Scattered rhonchi b/l. No wheezing. No stridor. No accessory muscle use. Chest wall: No deformity Gastrointestinal: Soft, non-tender, non-distended Back: No tenderness Extremities: No deformity Neurological: Awake and alert. Following commands. No focal deficit appreciated. Psychiatric: Agitated and tearful intermittently. Images IMPRESSION: No CT evidence of acute pulmonary embolism. No acute process in the thorax. CLINICAL HISTORY: Altered mental status. Chest pain. Technique: Spiral CTA acquisition of the chest from the thoracic inlet to the upper abdomen following IV contrast. Including 3D MIPS reconstructions in coronal plane. Other 3D sagittal and coronal reconstructions. Unless otherwise stated, incidental findings identified in this report do not require routine follow-up imaging. All CT scans at this facility use dose modulation, iterative reconstruction, and/or weight based dosing when appropriate to reduce radiation dose to as low as reasonably achievable. Comparison: None. RESULT: Evaluation for thromboembolic disease: No evidence for thromboembolic disease in the main, lobar, segmental, and visualized subsegmental pulmonary arteries. No evidence for right heart strain. Lung parenchyma and pleura: Endotracheal tube above the ivan. Some retained secretions within the trachea and central airways. No consolidation, pleural effusion, or pneumothorax. Areas of probable atelectasis. Thoracic inlet, heart, and mediastinum: Visualized thyroid unremarkable. No axillary, mediastinal, or hilar lymphadenopathy. Normal thoracic aorta. Normal pulmonary artery size. Normal heart size. No coronary artery calcifications. No pericardial effusion or thickening. Enteric tube within the esophagus coursing into the stomach. Bones: No acute osseous findings. No destructive osseous lesions. Soft tissues: Unremarkable. Upper abdomen: See concurrently performed and separately dictated CT. Tech Comments: GFR (mL/min/1/73m2) age Contrast: Isovue 370 Contrast amount in ml's: 100.00 Ordering Provider: Alfred Graham Assessment/Plan 1. Acute respiratory failure with hypoxia (J96.01: Acute respiratory failure with hypoxia) 2/2 new onset seizure-like activity Plan: - Pt was on AC/VC but did not tolerate well. She did poorly with SAT/SBT mostly due to agitation. Pt was extubated to NC and has since been weaned to RA. - Titrate O2 for sats 92-96% - CTA chest w/o acute findings - Aspiration precautions - Pt is currently on Cefepime and Vanco --> from a Pulmonary perspective, there does not seem wai any acute infection in the chest. Will defer abx management to the Primary team. VTE ppx: Lovenox GI ppx: PPI 2. Generalized seizure (R56.9: Unspecified convulsions) New onset seizures Concern for possible encephalitis vs ? c/b agitation Plan: - Neurology following - LP performed --> results pending - Continuous EEG unremarkable - Neuro recommended MRI - Continue Keppra - Seizure precautions - Continue precedex for a (more content not included)...[facility]:Result Comment: Electronically Signed By: Doroteo GILES, Alexa Hernandez\.br\Date and Time Signed: 11/23/24 17:29 [id number] NoteConsultation Note Chief Complaint seizure Reason for Consultation Acute hypoxemic respiratory failure History of Present Illness Pt is a 29y F with past medical history significant for Crohn's disease, s/p ileostomy, 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 History obtained from chart and pt's mother d/t the pt being intubated and sedated. According to the pt's mother, pt was found at home unresponsive and experiencing seizure-like activity. Pt does not have any history of seizures. EMS was called and the pt was brought to the ED for evaluation. EMS reported to ED staff that the pt had 3 more seizure-like episodes en route to the ED. In the ED, the pt arrived having what appeared to be an active seizure. Her seizure ceased with medications but she hada GCS of 3. Pt was intubated in the ED. Laboratory workup revealed WBC 26, plts 799, K+ 2.9, Mg +1.2, but otherwise unremarkable. Initial ABG showed 7.23/40/233 on 50% FiO2. Lactate was 9.6. CTA chest obtained which was neg for PE or acute infiltrates. Utox + benzos and cannabis. Pt was started on sedation, keppra, and admitted to the ICU for further management. [facility] in management of the pt's acute hypoxemic respiratory failure. Review of Systems 12 point review of systems performed with patient, pertinent positives and negatives stated in HPI. Physical Exam Vitals & Measurements T: 36.7 ???C(Oral) TMIN: 36.4 ???C(Oral) TMAX: 36.8 ???C(Oral) HR: 82(Monitored) RR: 15 BP: 92/58 SpO2: 100% HT: 167 cm WT: 54.6 kg General: No acute distress Skin: Warm, dry Head: Atraumatic, normocephalic Neck: Trachea midline, no adenopathy, no tenderness Eye: PERRL, sclera anicteric ENMT: Moist mucous membranes Cardiovascular: Regular rate and rhythm. No murmurs, rubs, or gallops. No BLE edema. Respiratory: Tachypneic. Scattered rhonchi b/l. No wheezing. No stridor. No accessory muscle use. Chest wall: No deformity Gastrointestinal: Soft, non-tender, non-distended Back: No tenderness Extremities: No deformity Neurological: Awake and alert. Following commands. No focal deficit appreciated. Psychiatric: Agitated and tearful intermittently. Images IMPRESSION: No CT evidence of acute pulmonary embolism. No acute process in the thorax. CLINICAL HISTORY: Altered mental status. Chest pain. Technique: Spiral CTA acquisition of the chest from the thoracic inlet to the upper abdomen following IV contrast. Including 3D MIPS reconstructions in coronal plane. Other 3D sagittal and coronal reconstructions. Unless otherwise stated, incidental findings identified in this report do not require routine follow-up imaging. All CT scans at this facility use dose modulation, iterative reconstruction, and/or weight based dosing when appropriate to reduce radiation dose to as low as reasonably achievable. Comparison: None. RESULT: Evaluation for thromboembolic disease: No evidence for thromboembolic disease in the main, lobar, segmental, and visualized subsegmental pulmonary arteries. No evidence for right heart strain. Lung parenchyma and pleura: Endotracheal tube above the ivan. Some retained secretions within the trachea and central airways. No consolidation, pleural effusion, or pneumothorax. Areas of probable atelectasis. Thoracic inlet, heart, and mediastinum: Visualized thyroid unremarkable. No axillary, mediastinal, or hilar lymphadenopathy. Normal thoracic aorta. Normal pulmonary artery size. Normal heart size. No coronary artery calcifications. No pericardial effusion or thickening. Enteric tube within the esophagus coursing into the stomach. Bones: No acute osseous findings. No destructive osseous lesions. Soft tissues: Unremarkable. Upper abdomen: See concurrently performed and separately dictated CT. Tech Comments: GFR (mL/min/1/73m2) age Contrast: Isovue 370 Contrast amount in ml's: 100.00 Ordering Provider: Alfred Graham Assessment/Plan 1. Acute respiratory failure with hypoxia (J96.01: Acute respiratory failure with hypoxia) 2/2 new onset seizure-like activity Plan: - Pt was on AC/VC but did not tolerate well. She did poorly with SAT/SBT mostly due to agitation. Pt was extubated to NC and has since been weaned to RA. - Titrate O2 for sats 92-96% - CTA chest w/o acute findings - Aspiration precautions - Pt is currently on Cefepime and Vanco --> from a Pulmonary perspective, there does not seem wai any acute infection in the chest. Will defer abx management to the Primary team. VTE ppx: Lovenox GI ppx: PPI 2. Generalized seizure (R56.9: Unspecified convulsions) New onset seizures Concern for possible encephalitis vs ? c/b agitation Plan: - Neurology following - LP performed --> results pending - Continuous EEG unremarkable - Neuro recommended MRI - Continue Keppra - Seizure precautions - Continue precedex for a (more content not included)...[facility]:Result Comment: Electronically Signed By: Sean Meehan PA-C, Aldo G.\.br\Date and Time Signed: 11/23/24 16:44 EST\.br\Electronically Co- Signed By: Alexa Sadler MD.br\Date and Time Co-Signed: 11/23/24 17:29 EST 11-23-2024 NoteConsultation Note Chief Complaint seizure Reason for Consultation Acute hypoxemic respiratory failure History of Present Illness Pt is a 29y F with past medical history significant for Crohn's disease, s/p ileostomy, 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 History obtained from chart and pt's mother d/t the pt being intubated and sedated. According to the pt's mother, pt was found at home unresponsive and experiencing seizure-like activity. Pt does not have any history of seizures. EMS was called and the pt was brought to the ED for evaluation. EMS reported to ED staff that the pt had 3 more seizure-like episodes en route to the ED. In the ED, the pt arrived having what appeared to be an active seizure. Her seizure ceased with medications but she hada GCS of 3. Pt was intubated in the ED. Laboratory workup revealed WBC 26, plts 799, K+ 2.9, Mg +1.2, but otherwise unremarkable. Initial ABG showed 7.23/40/233 on 50% FiO2. Lactate was 9.6. CTA chest obtained which was neg for PE or acute infiltrates. Utox + benzos and cannabis. Pt was started on sedation, keppra, and admitted to the ICU for further management. [facility] in management of the pt's acute hypoxemic respiratory failure. Review of Systems 12 point review of systems performed with patient, pertinent positives and negatives stated in HPI. Physical Exam Vitals & Measurements T: 36.7 ???C(Oral) TMIN: 36.4 ???C(Oral) TMAX: 36.8 ???C(Oral) HR: 82(Monitored) RR: 15 BP: 92/58 SpO2: 100% HT: 167 cm WT: 54.6 kg General: No acute distress Skin: Warm, dry Head: Atraumatic, normocephalic Neck: Trachea midline, no adenopathy, no tenderness Eye: PERRL, sclera anicteric ENMT: Moist mucous membranes Cardiovascular: Regular rate and rhythm. No murmurs, rubs, or gallops. No BLE edema. Respiratory: Tachypneic. Scattered rhonchi b/l. No wheezing. No stridor. No accessory muscle use. Chest wall: No deformity Gastrointestinal: Soft, non-tender, non-distended Back: No tenderness Extremities: No deformity Neurological: Awake and alert. Following commands. No focal deficit appreciated. Psychiatric: Agitated and tearful intermittently. Images IMPRESSION: No CT evidence of acute pulmonary embolism. No acute process in the thorax. CLINICAL HISTORY: Altered mental status. Chest pain. Technique: Spiral CTA acquisition of the chest from the thoracic inlet to the upper abdomen following IV contrast. Including 3D MIPS reconstructions in coronal plane. Other 3D sagittal and coronal reconstructions. Unless otherwise stated, incidental findings identified in this report do not require routine follow-up imaging. All CT scans at this facility use dose modulation, iterative reconstruction, and/or weight based dosing when appropriate to reduce radiation dose to as low as reasonably achievable. Comparison: None. RESULT: Evaluation for thromboembolic disease: No evidence for thromboembolic disease in the main, lobar, segmental, and visualized subsegmental pulmonary arteries. No evidence for right heart strain. Lung parenchyma and pleura: Endotracheal tube above the ivan. Some retained secretions within the trachea and central airways. No consolidation, pleural effusion, or pneumothorax. Areas of probable atelectasis. Thoracic inlet, heart, and mediastinum: Visualized thyroid unremarkable. No axillary, mediastinal, or hilar lymphadenopathy. Normal thoracic aorta. Normal pulmonary artery size. Normal heart size. No coronary artery calcifications. No pericardial effusion or thickening. Enteric tube within the esophagus coursing into the stomach. Bones: No acute osseous findings. No destructive osseous lesions. Soft tissues: Unremarkable. Upper abdomen: See concurrently performed and separately dictated CT. Tech Comments: GFR (mL/min/1/73m2) age Contrast: Isovue 370 Contrast amount in ml's: 100.00 Ordering Provider: Alfred Graham Assessment/Plan 1. Acute respiratory failure with hypoxia (J96.01: Acute respiratory failure with hypoxia) 2/2 new onset seizure-like activity Plan: - Pt was on AC/VC but did not tolerate well. She did poorly with SAT/SBT mostly due to agitation. Pt was extubated to NC and has since been weaned to RA. - Titrate O2 for sats 92-96% - CTA chest w/o acute findings - Aspiration precautions - Pt is currently on Cefepime and Vanco --> from a Pulmonary perspective, there does not seem wai any acute infection in the chest. Will defer abx management to the Primary team. VTE ppx: Lovenox GI ppx: PPI 2. Generalized seizure (R56.9: Unspecified convulsions) New onset seizures Concern for possible encephalitis vs ? 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 Now found to have possible bacteremia with unknown source (possible perirectal abscess/pressure ulcerations) on broad-spectrum antibiotics. Extubated 11/23/2024 11/23/2024???status post LP at bedside prior to extubation. MRI pending. Status post EEG. Neurology following. Pulm/crit consulted and extubated today. Trauma has evaluated the patient's perirectal/anal fistula. No further seizure activity. Patient is very anxious. ANO x 3 after extubation. Updated mother and discussed care plan with multidisciplinary care team and specialist following. Mother was at bedside for several of my visits and extubation. 1. Acute respiratory failure with hypoxia (J96.01: Acute respiratory failure with hypoxia) Secondary to seizure activity. Extubated around 1:15 PM on 11/23/2024. Pulm/crit care following Wean oxygen as tolerated. 2. Generalized seizure (R56.9: Unspecified convulsions) MRI pending. Neurology states the need to rule out PML and press. Status post LP on 11/23/2024. Results pending. Had unusual preceding headache prior to seizure activity. Maintain empiric antibiotics Status post EEG. Results pending. Continue Keppra 500 mg twice daily per neurology. 3. Metabolic acidosis (E87.2: Acidosis) Improved. Likely secondary to 4. Leukocytosis (D72.829: Elevated white blood cell count, unspecified) Likely secondary to infection versus reactive. Improved with antibiotics. Maintain antibiotics for now. Recheck blood cultures. 5. Metabolic encephalopathy (G93.41: Metabolic encephalopathy) Multifactorial secondary to panic disorder/anxiety, seizure activity, acute infection. Concern for encephalitis and neurology workup pending. 6. Hypokalemia (E87.6: Hypokalemia) Improved with replacement. 7. Hypomagnesemia (E83.42: Hypomagnesemia) Improved with replacement. 8. Perianal fistula due to Crohn's disease (K50.913: Crohn's disease, unspecified, with fistula) Maintain broad-spectrum antibiotics. Evaluated by surgery. 9. Crohn's disease (K50.90: Crohn's disease, unspecified, without complications) Immunocompromise state. On vedolizumab. Pain management with morphine while NPO. 10. Generalized anxiety disorder (F41.1: Generalized anxiety disorder) As needed anxiolytics. 11. Bipolar depression (F31.9: Bipolar disorder, unspecified) Continue home medications when able. 12. Pressure ulcer of coccygeal region, stage 3 (L89.153: Pressure ulcer of sacral region, stage 3) Wound care. Evaluated by surgery. 13. Pressure ulcer of left buttock, stage 3 (L89.323: Pressure ulcer of left buttock, stage 3) See #12 14. Pressure ulcer of right buttock, stage 3 (L89.313: Pressure ulcer of right buttock, stage 3) See #12 15. Protein-calorie malnutrition, severe (E43: Unspecified severe protein- calorie malnutrition) Extubated today. Encourage oral intake. Nutrition consult. 16. Gram-positive bacteremia (R78.81: Bacteremia) Possible sources include pressure ulcers, IV site, perirectal fistula. Anal fistula, unspecified (K60.30: Anal fistula, unspecified) Orders: fentanyl, 50 microgram = 1 mL, Injection, IV, q15min PRN Pain, Routine, Start date 11/23/24 13:33:00 EST, 11/23/24 13:33:00 EST morphine, 4 mg = 2 mL, Injection, IV Push, q2hr PRN Pain for 5 day(s), Stop date 11/28/24 13:32:00 EST, Routine, Start date 11/23/24 13:33:00 EST, 11/23/24 13:33:00 EST Consult to Pulmonology Full code, n.p.o. pending swallow eval s/p extubation, Lovenox for DVT prophylaxis. Subjective Seen at bedside this morning and was very agitated. Having difficulties with sedation intermittently overnight. She was able to follow commands and right on the board that she was having significant abdominal pain. Gave her increased fentanyl dose which seem to help this. Earlier this afternoon shewas having an increased level life anxiety, however, she was able to be successfully extubated around 1:15 PM. States that she has significant abdominal pain and is causing her PTSD-like/panic symptoms. Giving some as needed Ativan and morphine. Neurology following and completing seizure workup. Had LP at bedside in ICU prior to extubation. MRI pending. Review of Systems Patient feels like she is having a panic attack/PTSD. Denies any fever, chills, chest pain, nausea,vomiting, diarrhea. Does have the sensation like she needs to have a bowel movement. Objective Vitals & Measurements T: 36.7 ???C(Oral) TMIN: 36.3 ???C(Oral) TMAX: 36.8 ???C(Oral) HR: 83(Monitored) RR: 52(Total) BP: 92/61 SpO2: 100% WT: 54.6 kg Intake & Output This visit (24 hour periods starting at 07:00 EST) 11/23/24 * 11/22/24 11/21/24 Total Summary Intake mL 400.77 4,417 1,184.42 Output mL -- 2,235 300 Fluid Nuno (more content not included)...[facility]:Result Comment: Electronically Signed By: Quinn Rodriguez III, DO\paulo\Date and Time Signed: 11/23/24 14:35 [id number] NoteProgress Note-Physician Assessment/Plan 29-year-old woman with history of Crohn's disease, has colostomy, recently struggling with Crohn's and complications of it such as fistulas. In the early childhood education specialist hours of November 22, 2024 she was discovered by her mother to be confused and flailing on the floor after her mother had heard some abnormal sounds coming from her room. The eveningprior Rola had been complaining of a significant headache which was highly uncharacteristic for her. Her mother then witnessed what sounds like a generalized tonic-clonic seizure at home. She had s everal more generalized seizures on the way here. Eventually stabilized with medication and intubation. CT head and CT angiography studies unrevealing. Had lactic acidosis of 4.7. Troponin bumped up to 499. White count initially 26 and gradually downtrending. Platelet count initially 946 and downtrending. Was hooked up to continuous EEG. No further clinical events. Unclear as to why she would have new onset seizures. 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 Hard to definitively say given the circumstances of intubation and sedation, but I did feel like she had some fairly mild nuchal rigidity today. And she also had Genet signs in bilateral upper extremities and a Babinski sign on the right. Consider encephalitis as well. Needto rule out PML and PRES. PLAN: 1. MRI brain with and without contrast 2. Lumbar puncture performed. Results that will be pending: Cell counts, glucose, protein, infectious PCR, culture, NMDA receptor antibody. 3. At least 18 hours of continuous EEG were unremarkable and we are discontinuing it 4. Continue the Keppra 500 mg twice daily 5. Preliminary blood cultures looking positive for gram-positive cocci in clusters. She is on cefepime. 6. Further recommendations to follow 1. Acute respiratory failure with hypoxia (J96.01: Acute respiratory failure with hypoxia) 2. Generalized seizure (R56.9: Unspecified convulsions) 3. Metabolic acidosis (E87.2: Acidosis) 4. Leukocytosis (D72.829: Elevated white blood cell count, unspecified) 5. Metabolic encephalopathy (G93.41: Metabolic encephalopathy) 6. Hypokalemia (E87.6: Hypokalemia) 7. Hypomagnesemia (E83.42: Hypomagnesemia) 8. Perianal fistula due to Crohn's disease (K50.913: Crohn's disease, unspecified, with fistula) 9. Crohn's disease (K50.90: Crohn's disease, unspecified, without complications) 10. Generalized anxiety disorder (F41.1: Generalized anxiety disorder) 11. Bipolar depression (F31.9: Bipolar disorder, unspecified) 12. Pressure ulcer of coccygeal region, stage 3 (L89.153: Pressure ulcer of sacral region, stage 3) 13. Pressure ulcer of left buttock, stage 3 (L89.323: Pressure ulcer of left buttock, stage 3) 14. Pressure ulcer of right buttock, stage 3 (L89.313: Pressure ulcer of right buttock, stage 3) 15. Protein-calorie malnutrition, severe (E43: Unspecified severe protein- calorie malnutrition) Anal fistula, unspecified (K60.30: Anal fistula, unspecified) Subjective Could not obtain. She is intubated and sedated, does wake up, make eye contact, nods yes and no foranswers. Hard to get any history out of her. She was currently unable to write but at other times has been able to write to communicate. Review of Systems Could not obtain Objective Vitals & Measurements T: 36.7 ???C(Oral) TMIN: 36.3 ???C(Oral) TMAX: 36.8 ???C(Oral) HR: 77(Monitored) RR: 20 BP: 99/59 SpO2: 97% HT: 167 cm WT: 54.6 kg Intake & Output This visit (24 hour periods starting at 07:00 EST) 11/23/24 * 11/22/24 11/21/24 Total Summary Intake mL -- 4,290.02 1,184.42 Output mL -- 2,235 300 Fluid Balance -- 2,055.02 884.42 Intake (20) Dextrose 5% with 0.45% NaCl intravenous solution 1,000 mL mL -- 436.31 -- Generic Diluent, levetiracetam mL -- 194.44 100 Generic Diluent, magnesium sulfate mL -- 29.58 20.42 Generic Diluent, potassium chloride mL -- 165.06 35 Oral Intake mL -- -- -- Sodium Chloride 0.9% mL -- -- 1,000 Sodium Chloride 0.9% intravenous solution 1,000 mL mL -- 2,012.66 -- Sodium Chloride 0.9%, cefepime mL -- 363.9 -- Sodium Chloride 0.9%, vancomycin mL -- 531.36 -- dexmedetomidine 400 mcg [0.4 mcg/kg/hr] + Sodium Chloride 0.9% intravenous solution 100 mL mL -- 75.42 -- etomidate mL -- -- 10 fentanyl mL -- 3 2 fentanyl 1,000 mcg [50 mcg/hr] + Sodium Chloride 0.9% intravenous solution 100 mL mL -- 176.45 -- lorazepam mL -- 1.5 1 naloxone mL -- -- 2 norepinephrine 8 mg [0.05 mcg/kg/min] + Dextrose 5% in Water intravenous solution 250 mL mL -- 1.54 -- pantoprazole mL -- 10 -- propofol mL -- -- 9 propofol 1,000 mg [10 mcg/kg/min] + Generic Diluent 100 mL mL -- 288.8 -- rocuronium mL -- -- (more content not included)...[facility]:Result Comment: Electronically Signed By: Lynn Leon RN\.br\Date and Time Signed: 11/23/24 07:29 EST\.br\Electronically Co-Signed By: Ted Petersen DO\.br\Date and Time Co-Signed: 11/23/24 12:42 [id number] NoteProcedural LUMBAR PUNCTURE: The details of the procedure were described at length. They were described to her and her mother, Rashi. She was intubated and on propofol and fentanyl at the time though, so I will use her mom for consent for the procedure. Risks and benefits were discussed. Specifically the benefit is that this is potentially a diagnostic procedure. Specific risks that were discussed include: Infectious risk, intra- and extracorporeal bleeding, herniation of the intracranial contents, spinal headache, and spinal cord trauma. To assess for any propensity for procedural bleeding, platelets, PT, and APTT werechecked prior to the procedure. To mitigate infectious risk, skin was prepped using a chlorhexidine solution, was sterilely draped, and sterile procedure was used throughout. The patient had intracranial imaging performed prior to the procedure that demonstrates a lack of cerebellar tonsillar protrusion or sagging of the contents of the posterior fossa. The patient was placed in a left lateral dec ubitus position. 2 mL of 1% lidocaine was used to numb the subcutaneous tissues at the desired spinal level. A 3-1/2 inch 20-gauge spinal needle was inserted at the L4-5 level. The intrathecal space was accessed without complication. Opening pressure was not obtained. A total of 13 mL of initially slightly blood-tinged but gradually clearing cerebrospinal fluid was collected into 3 total tubes. The needle was then withdrawn. The patient tolerated the procedure; her sedation was increased prior to the procedure. There were no complications.[facility] NoteProcedural LUMBAR PUNCTURE: The details of the procedure were described at length. They were described to her and her mother, Rashi. She was intubated and on propofol and fentanyl at the time though, so I will use her mom for consent for the procedure. Risks and benefits were discussed. Specifically the benefit is that this is potentially a diagnostic procedure. Specific risks that were discussed include: Infectious risk, intra- and extracorporeal bleeding, herniation of the intracranial contents, spinal headache, and spinal cord trauma. To assess for any propensity for procedural bleeding, platelets, PT, and APTT werechecked prior to the procedure. To mitigate infectious risk, skin was prepped using a chlorhexidine solution, was sterilely draped, and sterile procedure was used throughout. The patient had intracranial imaging performed prior to the procedure that demonstrates a lack of cerebellar tonsillar protrusion or sagging of the contents of the posterior fossa. The patient was placed in a left lateral dec ubitus position. 2 mL of 1% lidocaine was used to numb the subcutaneous tissues at the desired spinal level. A 3-1/2 inch 20-gauge spinal needle was inserted at the L4-5 level. The intrathecal space was accessed without complication. Opening pressure was not obtained. A total of 13 mL of initially slightly blood-tinged but gradually clearing cerebrospinal fluid was collected into 3 total tubes. The needle was then withdrawn. The patient tolerated the procedure; her sedation was increased prior to the procedure. 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 Pt mom and boyfriend have been at bedside, and updated provided per nursing. Pt is from home with mom and she will transport at [place]. Contact information provided and white board updated. CRM [facility]03-02-2025 NoteProgress Note - Pharmacy Vancomycin Pharmacy to Dose Consult Note Indication: Empiric Treatment Goal Range: AUC/CRISTINA: 400-600 RECOMMENDATIONS/PLAN: Pharmacy consulted for vancomycin dosing for ROLA AGUILAR, a 29 Years old, Female who is beingtreated for empiric treatment. 1. VANCO STATUS: Vancomycin therapy is still active, today is day 1 of treatment. Patient is receiving Vancomycin 1000mg IV q12h. 2. VANCO LEVEL: No vancomycin level has been drawn for this dosing regimen. 3. DOSING RECS: (other comments) 4. NEXT LEVEL: The next paired levels are scheduled. Peak at 0300 on 11/24 and Trough at 1100 on 11/24. 5. MRSA NASAL SWAB? A MRSA nasal swab is not appropriate at this time. We will follow patient renal function, vancomycin levels, and doses with you during the course of therapy. Additional recommendations will appear in follow up notes. If you have any questions, pleasecontact the pharmacy at extension [phone]. Age: 29 Years Allergies: ALLERGIES Weight: Last Documented Weight and Type of Scale Used Last Documented Weight Weight Measured: 57 kg (11/22/24 10:13:00) Type of Scale Used Weight Measured Type of Scale: Bed Scale (digital) (11/22/24 07:46:00) Height: Last Documented Height/Length Last Documented Height/Length Height/Length Measured: 167 cm (11/22/24 10:13:00) CrCl: 106.71 mL/min Labs: WBC: 26 E9/L High (11/22/24 03:46:00) RBC: 4.5 E12/L (11/22/24 03:46:00) HGB: 12.7 gm/dL (11/22/24 03:46:00) Hct: 41 % (11/22/24 03:46:00) MCV: 92.2 fL (11/22/24 03:46:00) MCH: 28.4 pg (11/22/24 03:46:00) MCHC: 30.9 gm/dL Low (11/22/24 03:46:00) RDW: 19.4 % High (11/22/24 03:46:00) Platelet: 799 E9/L High (11/22/24 03:46:00) MPV: 6.7 fL (11/22/24 03:46:00) Segs Man: 57 % (11/22/24 03:46:00) Band Man: 13 % High (11/22/24 03:46:00) Lymph Man: 15 % (11/22/24 03:46:00) Monocyte Man: 8 % (11/22/24 03:46:00) Eos Man: 0 % (11/22/24 03:46:00) Basophil Man: 0 % (11/22/24 03:46:00) [place] Man: 3 % High (11/22/24 03:46:00) Myelo Man: 4 % High (11/22/24 03:46:00) Segs Abs Man: 18.2 E9/L (11/22/24 03:46:00) Lymph Abs Man: 3.9 E9/L (11/22/24 03:46:00) Colbert Abs Man: 2.1 E9/L High (11/22/24 03:46:00) Eos Abs Man: 0 E9/L (11/22/24 03:46:00) Basophil Abs Man: 0 E9/L (11/22/24 03:46:00) RBC Morph: NORMAL (11/22/24 03:46:00) PT: 10.5 second(s) (11/22/24 04:43:00) INR: 0.94 (11/22/24 04:43:00) PTT: 27.3 second(s) (11/22/24 04:43:00) Glucose Lvl: 144 mg/dL (11/22/24 05:01:00) BUN: 15 mg/dL (11/22/24 05:01:00) Creatinine: 0.7 mg/dL (11/22/24 05:01:00) eGFR: 120 mL/min/1.73 m2 (11/22/24 05:01:00) BUN/Creat Ratio: 21 High (11/22/24 05:01:00) Sodium Lvl: 142 mmol/L (11/22/24 05:01:00) Potassium Lvl: 2.9 mmol/L Low (11/22/24 05:01:00) Chloride: 110 mmol/L (11/22/24 05:01:00) CO2: 23 mmol/L (11/22/24 05:01:00) AGAP: 12 mEq/L (11/22/24 05:01:00) Calcium Lvl: 7.1 mg/dL Low (11/22/24 05:01:00) Alk Phos: 109 Int._Unit/L High (11/22/24 05:01:00) ALT: 20 Int._Unit/L (11/22/24 05:01:00) AST: 40 Int._Unit/L (11/22/24 05:01:00) Total Protein: 5.7 gm/dL Low (11/22/24 05:01:00) Albumin Lvl: 2.5 gm/dL Low (11/22/24 05:01:00) Globulin: 3.2 gm/dL (11/22/24 05:01:00) A/G Ratio: 0.8 Low (11/22/24 05:01:00) Bili Total: 0.3 mg/dL (11/22/24 05:01:00) Bili Direct: 0.1 mg/dL (11/22/24 05:01:00) Bili Indirect: 0.2 mg/dL (11/22/24 05:01:00) Ammonia: 27 mcmol (11/22/24 05:01:00) Lactic Acid Lvl: 4.4 mmol/L High (11/22/24 07:55:00) Magnesium: 1.2 mg/dL Low (11/22/24 05:01:00) Troponin HS: 499.8 pg/mL Critical (11/22/24 07:55:00) Beta hCG Qnt: 1 mIU/mL (11/22/24 04:43:00) Procalcitonin: 0.6 ng/mL High (11/22/24 05:01:00) U Amph Scr: NEGATIVE (11/22/24 05:01:00) U Maribell Scr: NEGATIVE (11/22/24 05:01:00) U Benzodia Scr: POSITIVE Abnormal (11/22/24 05:01:00) U Cannab Scr: POSITIVE Abnormal (11/22/24 05:01:00) U Cocaine Scr: NEGATIVE (11/22/24 05:01:00) U Opiate Scr: NEGATIVE (11/22/24 05:01:00) U PCP Scr: NEGATIVE (11/22/24 05:01:00) U Fentanyl: NEGATIVE (11/22/24 05:01:00) Ethanol Lvl: <10 (11/22/24 04:43:00) Glucose Cap: 188 mg/dL High (11/22/24 03:24:00) POC Device SN: [id number] (11/22/24 03:24:00) POC User ID: [id number] (11/22/24 03:24:00) POC Username: JACQUE FULLER (11/22/24 03:24:00) UA Spec Desc: Catheter (11/22/24 05:01:00) UA Color: Colorless Abnormal (11/22/24 05:01:00) UA Clarity: Clear (11/22/24 05:01:00) UA Spec Grav: 1.025 (11/22/24 05:01:00) UA pH: 6.5 (11/22/24 05:01:00) UA Protein: Negat (11/22/24 05:01:00) UA Glucose: Negat (11/22/24 05:01:00) UA Ketones: Negat (11/22/24 05:01:00) UA Bili: Negat (11/22/24 05:01:00) UA Blood: Negat (11/22/24 05:01:00) UA Nitrite: Negat (11/22/24 05:01:00) UA Urobilinogen: Negat (11/22/24 05:01:00) UA Leuk Est: Negat (11/22/24 05:01:00) pH Arterial: 7.457 High (11/22/24 08:18:00) P CO2 Arterial: 33.7 mmHg Low (11/22/24 08:18:00) P O2 Arterial: 137 mmHg Critical (11/22/24 08:18:00) Base Excess Arterial: 0.2 (more content not included)...[facility]03-[facility] NoteConsultation Note Chief Complaint Pt. arrived by squad w/ NFD for unresponsiveness. Pt. mom stated she heard pt grunting from her room and being unresponsive. Pt. hx of chrons, GCS6 upon arrival, on 2l NC 100% spo2. Reason for Consultation Possible seizure History of Present Illness The patient has past medical history of Crohn's disease requiring colostomy/ileostomy. According tothe patient's mother the patient has been ill over the past several months due to underlying Crohn's disease. The patient was in her normal state of health last night other than developing a headacheprior to bed approximately one a.m. The patient was found by family on the ground flailing about atapproximately 2 AM. The patient then had what is described as a tonic type seizure. The patient wasbrought to the emergency room after being given Versed and route. The patient reportedly had a recurrent episode in the emergency room and required intubation. The patient is currently intubated and s edated. The patient reportedly has had no history of seizures in the past. The patient did have a elevated white blood cell count initially thought to be due to de-marginationcessation of white bloodcells from recurrent seizures. The patient is currently afebrile. Patient is on chronic steroids according to mother. The patient is admitted to the hospital for further workup and evaluation. Review of Systems Constitutional: no fever, no chills, no sweats, no weakness Respiratory: no shortness of breath, no cough, no orthopnea, no wheezing Cardiovascular: no chest pain, no palpitations, no edema Additional ROS info: Except as noted in the above Review of Systems and in the History of Present Illness all other systems have been reviewed and are negative or noncontributory. Physical Exam Vitals & Measurements T: 36.5 ???C(Tympanic) HR: 64(Monitored) RR: 1(Spontaneous) RR: 21(Total) BP: 110/79 SpO2: 100% HT:167 cm WT: 57 kg The patient is intubated and sedated. Cranial nerves: Pupils are equal round and reactive to light, face is grossly symmetric. Motor exam: Strength testing could not be performed due to patient condition. Deep tendon reflexes are 2+ and symmetric. Tone is normal throughout. Plantar reflexes flexor bilaterally. Sensory exam: Sensation could not be performed due to patient condition. Cerebellar exam: could not be performed due to patient condition. The neurological exam was performed by a healthcare professional which was witnessed and supervisedby me via video telemedicine visit consented to by the patient or appropriate patient customer account representative. Assessment/Plan The patient is a 29-year-old female with history of Crohn's disease requiring colostomy/ileostomy who was admitted to the hospital for new onset seizure-like activity manifest as tonic type movementswhich were recurrent in the emergency room requiring intubation for airway protection. The patient was given Versed in the EMS and loaded with Keppra in the emergency room. The patient is currently on Keppra 500 mg twice a day. The patient is intubated and sedated with limited neurological exam. The patient may have new onset seizure from a underlying medical condition, metabolic abnormality, or infection. Patient did have a CT scan of the brain which did not reveal evidence of acute or chronicstructural problem which may predispose to seizure. I recommend continuing Keppra 500 mg IV twice aday. I recommend continuous video EEG monitoring for subclinical and recurrent seizures. I recommend an MRI scan of the brain to assess for an acute or chronic structural lesion which may predispose to seizures. I recommend repeating blood work to assess for infection as a possible source new-onset seizures. I will consider recommending CSF analysis for further evaluation based upon the patient'sclinical course and the above results. I discussed with the hospitalist empiric antibiotic therapy.I discussed the possible diagnoses, evaluation, treatment options at length with the patient's mother. Discussed the case with the hospitalist. I will continue to follow patient closely. 1. Acute respiratory failure with hypoxia (J96.01: Acute respiratory failure with hypoxia) 2. Generalized seizure (R56.9: Unspecified convulsions) 3. Metabolic acidosis (E87.2: Acidosis) 4. Leukocytosis (D72.829: Elevated white blood cell count, unspecified) 5. Metabolic encephalopathy (G93.41: Metabolic encephalopathy) 6. Hypokalemia (E87.6: Hypokalemia) 7. Hypomagnesemia (E83.42: Hypomagnesemia) 8. Perianal fistula due to Crohn's disease (K50.913: Crohn's disease, unspecified, with fistula) 9. Crohn's disease (K50.90: Crohn's disease, unspecified, without complications) 10. Bipolar depression (F31.9: Bipolar disorder, unspecified) 11. Pressure ulcer of coccygeal region, stage 3 (L89.153: Pressure ulcer of sacral region, stage 3) 12. Pressure ulcer of left buttock, stage 3 (L89.323: Pressure ulcer of left buttock, stage 3) 13. Pressure ulcer o (more content not included)...[facility] Comment on above:Result Comment: Electronically Signed By: Jordy HARTMANN, Carolyn\.br\Date and Time Signed: 11/22/24 08:36 EST\.br\Electronically Co- Signed By: Jeff Marinelli MD\.br\Date and Time Co-Signed: 11/22/24 11:18 EST 11-22-2024 NoteConsultation Note Chief Complaint Pt. arrived by leonard w/ KELSI for unresponsiveness. Pt. mom stated she heard pt grunting from her room and being unresponsive. Pt. hx of chrons, GCS6 upon arrival, on 2l NC 100% spo2. Reason for Consultation Possible seizure History of Present Illness The patient has past medical history of Crohn's disease requiring colostomy/ileostomy. According tothe patient's mother the patient has been ill over the past several months due to underlying Crohn's disease. The patient was in her normal state of health last night other than developing a headacheprior to bed approximately one a.m. The patient was found by family on the ground flailing about atapproximately 2 AM. The patient then had what is described as a tonic type seizure. The patient wasbrought to the emergency room after being given Versed and route. The patient reportedly had a recurrent episode in the emergency room and required intubation. The patient is currently intubated and s edated. The patient reportedly has had no history of seizures in the past. The patient did have a elevated white blood cell count initially thought to be due to de-marginationcessation of white bloodcells from recurrent seizures. The patient is currently afebrile. Patient is on chronic steroids according to mother. The patient is admitted to the hospital for further workup and evaluation. Review of Systems Constitutional: no fever, no chills, no sweats, no weakness Respiratory: no shortness of breath, no cough, no orthopnea, no wheezing Cardiovascular: no chest pain, no palpitations, no edema Additional ROS info: Except as noted in the above Review of Systems and in the History of Present Illness all other systems have been reviewed and are negative or noncontributory. Physical Exam Vitals & Measurements T: 36.5 ???C(Tympanic) HR: 64(Monitored) RR: 1(Spontaneous) RR: 21(Total) BP: 110/79 SpO2: 100% HT:167 cm WT: 57 kg The patient is intubated and sedated. Cranial nerves: Pupils are equal round and reactive to light, face is grossly symmetric. Motor exam: Strength testing could not be performed due to patient condition. Deep tendon reflexes are 2+ and symmetric. Tone is normal throughout. Plantar reflexes flexor bilaterally. Sensory exam: Sensation could not be performed due to patient condition. Cerebellar exam: could not be performed due to patient condition. The neurological exam was performed by a healthcare professional which was witnessed and supervisedby me via video telemedicine visit consented to by the patient or appropriate patient customer account representative. Assessment/Plan The patient is a 29-year-old female with history of Crohn's disease requiring colostomy/ileostomy who was admitted to the hospital for new onset seizure-like activity manifest as tonic type movementswhich were recurrent in the emergency room requiring intubation for airway protection. The patient was given Versed in the EMS and loaded with Keppra in the emergency room. The patient is currently on Keppra 500 mg twice a day. The patient is intubated and sedated with limited neurological exam. The patient may have new onset seizure from a underlying medical condition, metabolic abnormality, or infection. Patient did have a CT scan of the brain which did not reveal evidence of acute or chronicstructural problem which may predispose to seizure. I recommend continuing Keppra 500 mg IV twice aday. I recommend continuous video EEG monitoring for subclinical and recurrent seizures. I recommend an MRI scan of the brain to assess for an acute or chronic structural lesion which may predispose to seizures. I recommend repeating blood work to assess for infection as a possible source new-onset seizures. I will consider recommending CSF analysis for further evaluation based upon the patient'sclinical course and the above results. I discussed with the hospitalist empiric antibiotic therapy.I discussed the possible diagnoses, evaluation, treatment options at length with the patient's mother. Discussed the case with the hospitalist. I will continue to follow patient closely. 1. Acute respiratory failure with hypoxia (J96.01: Acute respiratory failure with hypoxia) 2. Generalized seizure (R56.9: Unspecified convulsions) 3. Metabolic acidosis (E87.2: Acidosis) 4. Leukocytosis (D72.829: Elevated white blood cell count, unspecified) 5. Metabolic encephalopathy (G93.41: Metabolic encephalopathy) 6. Hypokalemia (E87.6: Hypokalemia) 7. Hypomagnesemia (E83.42: Hypomagnesemia) 8. Perianal fistula due to Crohn's disease (K50.913: Crohn's disease, unspecified, with fistula) 9. Crohn's disease (K50.90: Crohn's disease, unspecified, without complications) 10. Bipolar depression (F31.9: Bipolar disorder, unspecified) 11. Pressure ulcer of coccygeal region, stage 3 (L89.153: Pressure ulcer of sacral region, stage 3) 12. Pressure ulcer of left buttock, stage 3 (L89.323: Pressure ulcer of left buttock, stage 3) 13. Pressure ulcer o (more content not included)...[facility] Comment on above:Result Comment: Electronically Signed By: Carolyn Spence RN\.br\Date and Time Signed: 11/22/24 08:36 EST\.br\Electronically Co- Signed By: Jeff Marinelli MD\.br\Date and Time Co-Signed: 11/22/24 11:18 EST 11-22-2024 NoteHistory and Physical Basic Information Admit Date/Time:11/22/2024 06:42 Chief Complaint Pt. arrived by leonard garcia/ KELSI for unresponsiveness. Pt. mom stated she heard pt grunting from her room and being unresponsive. Pt. hx of chrons, GCS6 upon arrival, on 2l NC 100% spo2. History of Present Illness 29-year-old female with past medical history of anxiety, bipolar, Crohn's status post ileostomy, anal fistula, anxiety, presented to ER [facility] childhood education [facility] due to new onset seizure. History was obtained from ED physician and no due to patient was intubated and no family at bedside at the time of my evaluation for admission. Per note mother had stated patient was complaining of headache approximately 2 hours prior to arrival. And mother heard thumping and thought somebody was knocking and went upstairs and found patient seizing. EMS was called and en route was given Versed. Per EMS patient had several seizures and route. Patient was seizing on arrival to ED with heart rate in the 140s to 170s and GCS was 3 and patient was then intubated for airway protection. Patient was given 1 g Keppra. Patient was given Narcan as well in ED with no effect. In ED lactic acid 4.7, magnesium 1.2, potassium 2.9, troponin 96. ABG 7.2 /. Per note CODE STATUS is full code. Review of Systems Scoring Ki Fall Risk Score: 35 (11/22/24) Physical Exam Vitals & Measurements T: 36.5 ???C(Tympanic) HR: 64(Monitored) RR: 1(Spontaneous) RR: 21(Total) BP: 110/79 SpO2: 100% HT:167 cm WT: 57 kg General: Appears chronically ill, older than stated age, sedated Skin: Warm, dry, stage III pressure ulcer coccyx x 2, left and right buttocks. Perianal fistula with purulent discharge Head: No trauma, normocephalic Neck: Trachea midline, supple, negative for JVD Eye: Conjunctive are clear, clear sclera , EOMI ENMT: oral mucosa moist, no lesions or edema nose or external ears, poor dentition, ETT present, OGpresent Cardiovascular: Regular rate and rhythm, S1-S2 present, negative for murmurs rubs or gallops Respiratory: Lungs clear to auscultation, bilateral symmetric movement, negative for wheezes rales or rhonchi Chest wall: no deformity. Gastrointestinal: Abdomen soft, bowel sounds present, nontender to palpation, colostomy present. Perianal fistula present with what appears to be purulent discharge able to be expressed with pressurefrom anus. nurse was present during exam. Back: No tenderness Extremities: No edema Neurological: Sedated Lab Results WBC: 26 E9/L High (11/22/24 03:46:00) RBC: 4.5 E12/L (11/22/24 03:46:00) HGB: 12.7 gm/dL (11/22/24 03:46:00) Hct: 41 % (11/22/24 03:46:00) MCV: 92.2 fL (11/22/24 03:46:00) MCH: 28.4 pg (11/22/24 03:46:00) MCHC: 30.9 gm/dL Low (11/22/24 03:46:00) RDW: 19.4 % High (11/22/24 03:46:00) Platelet: 799 E9/L High (11/22/24 03:46:00) MPV: 6.7 fL (11/22/24 03:46:00) Segs Man: 57 % (11/22/24 03:46:00) Band Man: 13 % High (11/22/24 03:46:00) Lymph Man: 15 % (11/22/24 03:46:00) Monocyte Man: 8 % (11/22/24 03:46:00) Eos Man: 0 % (11/22/24 03:46:00) Basophil Man: 0 % (11/22/24 03:46:00) [place] Man: 3 % High (11/22/24 03:46:00) Myelo Man: 4 % High (11/22/24 03:46:00) Segs Abs Man: 18.2 E9/L (11/22/24 03:46:00) Lymph Abs Man: 3.9 E9/L (11/22/24 03:46:00) Colbert Abs Man: 2.1 E9/L High (11/22/24 03:46:00) Eos Abs Man: 0 E9/L (11/22/24 03:46:00) Basophil Abs Man: 0 E9/L (11/22/24 03:46:00) RBC Morph: NORMAL (11/22/24 03:46:00) PT: 10.5 second(s) (11/22/24 04:43:00) INR: 0.94 (11/22/24 04:43:00) PTT: 27.3 second(s) (11/22/24 04:43:00) Glucose Lvl: 144 mg/dL (11/22/24 05:01:00) BUN: 15 mg/dL (11/22/24 05:01:00) Creatinine: 0.7 mg/dL (11/22/24 05:01:00) eGFR: 120 mL/min/1.73 m2 (11/22/24 05:01:00) BUN/Creat Ratio: 21 High (11/22/24 05:01:00) Sodium Lvl: 142 mmol/L (11/22/24 05:01:00) Potassium Lvl: 2.9 mmol/L Low (11/22/24 05:01:00) Chloride: 110 mmol/L (11/22/24 05:01:00) CO2: 23 mmol/L (11/22/24 05:01:00) AGAP: 12 mEq/L (11/22/24 05:01:00) Calcium Lvl: 7.1 mg/dL Low (11/22/24 05:01:00) Alk Phos: 109 Int._Unit/L High (11/22/24 05:01:00) ALT: 20 Int._Unit/L (11/22/24 05:01:00) AST: 40 Int._Unit/L (11/22/24 05:01:00) Total Protein: 5.7 gm/dL Low (11/22/24 05:01:00) Albumin Lvl: 2.5 gm/dL Low (11/22/24 05:01:00) Globulin: 3.2 gm/dL (11/22/24 05:01:00) A/G Ratio: 0.8 Low (11/22/24 05:01:00) Bili Total: 0.3 mg/dL (11/22/24 05:01:00) Bili Direct: 0.1 mg/dL (11/22/24 05:01:00) Bili Indirect: 0.2 mg/dL (11/22/24 05:01:00) Ammonia: 27 mcmol (11/22/24 05:01:00) Lactic Acid Lvl: 4.4 mmol/L High (11/22/24 07:55:00) Magnesium: 1.2 mg/dL Low (11/22/24 05:01:00) Troponin HS: 94.3 pg/mL Critical (11/22/24 05:01:00) Beta hCG Qnt: 1 mIU/mL (11/22/24 04:43:00) U Amph Scr: NEGATIVE (11/22/24 05:01:00) U Maribell Scr: NEGATIVE (11/22/24 05:01:00) U Benzodia Scr: POSITIVE Abnormal (11/22/24 05:01:00) U Cannab Scr: POSITIVE Abnormal (11/22/24 05:01:00) U Cocaine Scr: NEGATIVE (11/22/24 (more content not included)...[facility]:Result Comment: Electronically Signed By: Shelli Jaimes DO\Date and Time Signed: 11/22/24 09:03 [id number] Hospital Discharge instructions Patient Education 11/14/2024 23:31:36 Abdominal Pain, Adult, Kjft-lg-Hmur Abdominal Pain, Adult Many things can cause belly (abdominal) pain. In most cases, belly pain is not a serious problem and can be watched and treated at home. But in some cases, it can be serious. Your doctor will try to find the cause of your belly pain. Follow these instructions at home: Medicines Take xpcw-dch-dylhtwe and prescription medicines only as told by [...] provider. Document Revised: 06/26/2023 Document Reviewed: 06/26/2023 [employer] Patient Education 2023 [employer]. 11/14/2024 23:31:36 Crohn's Disease Crohn's Disease Crohn's disease is [...] who specializes in diseases of the digestive tract(diet tech). How is this treated? There is no [...] Follow these instructions at home: Medicines Take mehj-msz-kbacsmw and prescription medicines only as told by [...] provider. Document Revised: 03/15/2022 Document Reviewed: 03/15/2022 [employer] Patient Education 2023 [employer]. Follow Up Care 11/14/2024 17:31:25 With:John Calderon Address: [facility] [address], [address] [place] [address]- [phone] Business (1) When:11/17/2024 Comments:Call Dr for diagnosis based follow up [facility] 02-22-2025 NoteED Patient Education Note Gastroenterology Abdominal Pain, Adult Many things can cause belly (abdominal) pain. In most cases, belly pain is not a serious problem and can be watched and treated at home. But in some cases, it can be serious. Your doctor will try to find the cause of your belly pain. Follow these instructions at home: Medicines ??? Take ayeu-ywp-lkmycvm and prescription medicines only as told by your doctor. ??? Do not take medicines that help you poop (laxatives) unless told by your doctor. General instructions ??? Watch your belly pain for any changes. Tell your doctor if the pain gets worse. ??? Drink enough fluid to keep your pee (urine) pale yellow. Contact a doctor if: ??? Your belly pain changes or gets worse. ??? You have very bad cramping or bloating in your belly. ??? You vomit. ??? Your pain gets worse with meals, after eating, or with certain foods. ??? You have trouble pooping or have watery poop for more than 2?3 days. ??? You are not hungry, or you lose weight without trying. ??? You have signs of not getting enough fluid or water (dehydration). These may include: ? Dark pee, very little pee, or no pee. ? Cracked lips or dry mouth. ? Feeling sleepy or weak. ??? You have pain when you pee or poop. ??? Your belly pain wakes you up at night. ??? You have blood in your pee. ??? You have a fever. Get help right away if: ??? You cannot stop vomiting. ??? Your pain is only in one part of your belly, like on the right side. ??? You have bloody or black poop, or poop that looks like tar. ??? [...] provider. Document Revised: 06/26/2023 Document Reviewed: 06/26/2023 [employer] Patient Education ? 2023 [employer]. Immunology Crohn's Disease Crohn's disease is a [...] flexible tube that has a light and acamera on the end (colonoscopy). ? A procedure to remove tissue samples from inside your bowel for testing (biopsy). You may need to work with a health care provider who specializes in diseases of the digestive tract(diet tech). How is this treated? There is no cure for this condition, and it affects each person differently. Treatment can help youmanage your symptoms. Your treatment may include: ??? Medicines. These ma (more content not included)...[facility]01-10-2025 Hospital Discharge instructions Patient Education 10/02/2024 17:49:33 Abdominal Pain, [...] Follow these instructions at home: Medicines Take abxj-sqb-esdapwj and prescription medicines only as told by [...] provider. Document Revised: 06/26/2023 Document Reviewed: 06/26/2023 [employer] Patient Education 2023 [employer]. 10/02/2024 17:49:33 Crohn's Disease Crohn's Disease Crohn's [...] who specializes in diseases of the digestive tract(diet tech). How is this treated? There is no [...] Follow these instructions at home: Medicines Take fmuu-ycl-fbzdcwe and prescription medicines only as told by [...] provider. Document Revised: 03/15/2022 Document Reviewed: 03/15/2022 [employer] Patient Education 2023 [employer]. Follow Up Care 10/02/2024 13:52:38 With:Gumaro Acevedo Address: [address] [place], [place] [address] [address]- [phone] Business (1) When:10/05/2024 17:31:37 [facility] 01-10-2025 NoteED Patient Education Note Gastroenterology Abdominal Pain, Adult [...] these instructions at home: Medicines ??? Take mqbq-xlg-shgbrsv and prescription medicines only as told by [...] provider. Document Revised: 06/26/2023 Document Reviewed: 06/26/2023 [employer] Patient Education ? 2023 [employer]. Immunology Crohn's Disease Crohn's disease is a [...] flexible tube that has a light and acamera on the end (colonoscopy). ? A procedure to remove tissue samples from inside your bowel for testing (biopsy). You may need to work with a health care provider who specializes in diseases of the digestive tract(diet tech). How is this treated? There is no cure for this condition, and it affects each person differently. (more content not included)...[facility]01-10-2025 Evaluation + Plan note Diagnostic Tests Pending * UA with Cult Rflx 10/02/24 [facility] [id number] Telephone encounter Note* Telephone Encounter - Heather Leary RN - 08/12/2024 2:40 PM EST Images from the original note were not included. Attempted to call patient. Left detailed VM for patient to call [facility] at [phone] SHAHBAZ Rosado Rebecca, [facility] Lee Ann Humphries DO; Heather Leary RN Noted, thank you! I'll keep trying to reach her. Amina ----- Message ----- From: Lee Ann Humphries DO Sent: 08/12/2024 11:25 AM EST To: Heather Leary RN; Zaira Campbell [facility] Yes, she should still continue her Entyvio after surgery. I will have our office try to reach out to her as well. Thank you for the update. Lee Ann Humphries DO ----- Message ----- From: Zaira Campbell vidal Sent: 08/12/2024 11:19 AM EST To: DO Christelle Gu[address] Dr[address] [facility] has been unable to reach patient to set up Entyvio refill shipment after several attempts. Is she continuing Entyvio at this time? I see that she had surgery a few weeks ago. Thanks, Amina [facility]11-20-2024 Miscellaneous Notes* Telephone Encounter - Heather Leary RN - 08/12/2024 2:40 PM EST Images from the original note were not included. Attempted to call patient. Left detailed VM for patient to call [facility] at [phone] SHAHBAZ Rosado Rebecca, [facility] Lee Ann Humphries DO; Heather Leary RN Noted, thank you! I'll keep trying to reach her. Amina ----- Message ----- From: Lee Ann Humphries DO Sent: 08/12/2024 11:25 AM EST To: Heather Leary RN; Zaira Campbell [facility] Yes, she should still continue her Entyvio after surgery. I will have our office try to reach out to her as well. Thank you for the update. Lee Ann Humphries DO ----- Message ----- From: Zaira Campbell [facility] Sent: 08/12/2024 11:19 AM EST To: DO Christelle Guilla[address] Dr[address] [facility] has been unable to reach patient to set up Entyvio refill shipment after several attempts. Is she continuing Entyvio at this time? I see that she had surgery a few weeks ago. Amina Parry [facility] NoteHNO ID: [id number] Author: ?, ?, ? Service: ? Author Type: ? Type: Plan of Care Filed: 07/20/2024 16:18 Note Text: PHARMACY BEDSIDE DELIVERY SERVICE Patient Name: Rola Aguilar The marked outpatient medications were filled at [facility] pharmacy and picked up at the pharmacy [...] prescribed them or your Primary Care Provider. rAaceli Cervantes PAGER: [phone] July 20, 2024 4:18 [facility]10-28-2024 NoteHNO ID: [id number] Author: BRANNON SCHREIBER APRN.HYDROELECTRIC POWERPLANT SUPERVISOR Service: Anesthesiology Author Type: Nurse Car Tester Type: Anesthesia Procedure Notes Filed: 07/20/2024 12:48 Note Text: ANESTHESIOLOGY PROCEDURE NOTE Airway General Information Procedure Start Time/Medication Administration: 07/20/2024 12:35 PM Procedure End Time: 07/20/2024 12:35 PM Patient location during procedure: OR Timeout Performed Pre-procedure: timeout performed Consent Obtained: Yes Patient identity confirmed: arm band and patient Staffing Anesthesiologist: Radha Arnold MD HYDROELECTRIC POWERPLANT SUPERVISOR: Brannon Schreiber APRN.HYDROELECTRIC POWERPLANT SUPERVISOR Performed by: RAÚL Indications and Patient Condition Indications for airway management: anesthesia Preoxygenated: yes anesthesia circuit Patient position: sniffing Method: asleep Cricoid Pressure: No Manual In-Line Stabilization: No Difficult Mask: No Final Airway Details Final airway type: supraglottic airway Final Supraglottic Airway: i-gel Size 4 Seal Adequate: yes Failed airway: no Unrecognized esophageal intubation: no Airway not difficult SIGNATURE: Brannon Schreiber APRN.HYDROELECTRIC POWERPLANT SUPERVISOR PATIENT NAME: Rola Aguilar DATE: July 20, 2024 TIME: 12:47 PM CSN: [id number] Nurse Note* Solis Flores RN - 07/17/2024 10:56 AM EDT Education packet given for EUA/ I&D/ Fistulotomy/ seton on July 20. Discussed pre op instructions in detail. She will arrive 2 hours before surgery for anesthesia clearance. Surgery time is 12and she is aware. No other questions or concerns at this time. [facility]10-25-2024 Nurse Note* Solis Flores RN - 07/17/2024 10:56 AM EDT Education packet given for EUA/ I&D/ Fistulotomy/ seton on July 20. Discussed pre op instructions in detail. She will arrive 2 hours before surgery for anesthesia clearance. Surgery time is 12and she is aware. No other questions or concerns at this time. documented in this encounterHenry [facility] Hospital10-[facility] History of Present illness Narrative* Shaq Thakkar MD - 07/17/2024 10:00 AM EDT COLORECTAL SURGERY July 17, 2024 Rola Aguilar [...] on Entyvio. She is under the care ofDr Lee Ann Humphries. Ileoscopy on 01/20/24: - [...] 108 mg (1 pen) subcutaneously every other week.2 Each 11 No current facility-administered medications for [...] exam Anorectal: External exam reveals: see below Child Adolescent Psychiatrist present: yes The sensitive examination was discussed with the Patient or Patient's Authorized Director Of Advertising Sales. Asapplicable, any other physician, advance practice provider, medical student, or other health professional student that will be observing or involved in the sensitive examination for educational or training purposes was discussed with the Patient or Authorized Director Of Advertising Sales. The Patient or Authorized Director Of Advertising Sales has agreed to proceed with the sensitive [...] Thakkar MD Colorectal Surgery documented in this encounterHenry County Hospital10-25-2024 NoteHNO ID: [id number] Author: SHAQ THAKKAR MD Service: ? Author [...] exam Anorectal: External exam reveals: see below Child Adolescent Psychiatrist present: yes The sensitive examination was discussed with the Patient or Patient's Authorized Director Of Advertising Sales. As applicable, any other physician, advance practice provider, medical student, or other health professional student that will be observing or involved in the sensitive examination for educational or training purposes was discussed with the Patient or Authorized Director Of Advertising Sales. The Patient or Authorized Director Of Advertising Sales has agreed to proceed with the sensitive [...] to perform an EU (more content not included)...[facility]10-22-2024 Hospital Discharge instructions Patient Education 07/13/2024 23:57:10 Crohn's Disease [...] who specializes in diseases of the digestive tract(diet tech). How is this treated? There is no [...] Follow these instructions at home: Medicines Take kwut-qmx-mrttnef and prescription medicines only as told by [...] provider. Document Revised: 03/15/2022 Document Reviewed: 03/15/2022 Spotjournal Patient Education 2023 [employer]. 07/13/2024 23:57:10 Abdominal Pain, Adult, Depn-ia-Nklf Abdominal Pain, Adult Many things can cause belly (abdominal) pain. In most cases, belly pain is not a serious problem and can be watched and treated at home. But in some cases, it can be serious. Your doctor will try to find the cause of your belly pain. Follow these instructions at home: Medicines Take abny-pji-uoclhlk and prescription medicines only as told by [...] provider. Document Revised: 06/26/2023 Document Reviewed: 06/26/2023 Elsevier Patient Education 2023 [employer]. Follow Up Care 07/13/2024 18:23:45 With:Ja Pérez Address: [address], [address] [address]- [phone] Business (1) When:07/16/2024 Comments:Call Dr for diagnosis based follow up [facility] 10-21-2024 NoteED Patient Education Note Gastroenterology Abdominal Pain, Adult Many things can cause belly (abdominal) pain. In most cases, belly pain is not a serious problem and can be watched and treated at home. But in some cases, it can be serious. Your doctor will try to find the cause of your belly pain. Follow these instructions at home: Medicines ? Take dujj-shg-cikqnkn and prescription medicines only as told by [...] provider. Document Revised: 06/26/2023 Document Reviewed: 06/26/2023 Spotjournal Patient Education ? 2023 [employer]. Immunology Crohn's Disease Crohn's disease is a [...] flexible tube that has a light and acamera on the end (colonoscopy). ? A procedure to remove tissue samples from inside your bowel for testing (biopsy). You may need to work with a health care provider who specializes in diseases of the digestive tract(diet tech). How is this treated? There is no cure for this condition, and it affects each person differently. Treatment can help youmanage your symptoms. Your treatment may include: ? Medicines. These may be used by themselves or with other treatments (combination therapy). You may be given m (more content not included)...[facility]10-21-2024 NoteHNO ID: [id number] Author: ?, ?, ? Service: ? Author Type: ? Type: Progress Notes Filed: 07/29/2024 10:20 Note Text: Unable to reach patient for refill of Entyvio after 4 call attempts. Pt last refilled medication on 06/18/2024. Will schedule future follow-up in 2 weeks from today's date. Office will be updated if future attempts are unsuccessful. Aniya Alvarez CPhT [facility] Specialty Pharmacy, Inflammatory P: [phone] F: [phone]. Francis Hospital10-21-2024 NoteHNO ID: [id number] Author: ?, ?, ? Service: ? Author Type: ? Type: Progress Notes Filed: 08/12/2024 10:27 Note Text: [facility] Discontinuation Assessment: Disease group: Inflammatory Medication: ENTYVIO PEN 108 MG/0.68 ML SUBCUTANEOUS PEN INJECTOR Discontinue reason: Unable to reach patient Aniya Alvarez CPhT [facility] Specialty Pharmacy, Inflammatory P: [phone] F: [phone]. Francis Hospital10-09-2024 History of Present illness Narrative* Aniya Alvarez - 07/01/2024 1:16 PM EDT Prior authorization renewal for Enytvio was initiated and is pending review. Plan Name: [facility] Plan Agent: RHIANNON REECE Nelson: [id number] Timeline: Marked urgent Aniya Alvarez CPhT [facility], Inflammatory P: [phone] F: [phone] * Aniya Alvarez - 07/01/2024 1:16 PM EDT [facility] has been servicing patient for cycles/refills of Entyvio. Plan Name: [employer] Phone/Fax: - / - PA reference number: [id number] Approval Dates: 07/01/2024-07/10/2025 [facility] will continue to service order accordingly. Aniya Alvarez CPhT [facility], Inflammatory P: [phone] F: [phone] documented in this encounterHenry County Hospital10-09-2024 NoteHNO ID: [id number] Author: ?, ?, ? Service: ? Author Type: ? Type: Progress Notes Filed: 07/01/2024 16:11 Note Text: [facility] has been servicing patient for cycles/refills of Entyvio. Plan Name: [employer] Phone/Fax: - / - [place] reference number: [id number] Approval Dates: 07/01/2024-07/10/2025 [facility] will continue to service order accordingly. Aniya Alvarez CPhT [facility] Inflammatory P: [phone] F: [phone]. Francis Hospital10-09-2024 NoteHNO ID: [id number] Author: ?, ?, ? Service: ? Author Type: ? Type: Progress Notes Filed: 07/01/2024 13:17 Note Text: Prior authorization renewal for Enytvio was initiated and is pending review. Plan Name: [employer] Plan Agent: RHIANNON REECE Nelson: [id number] Timeline: Marked urgent Aniya Alvarez CPhT [facility], Inflammatory P: [phone] F: [phone]. Francis Hospital10-08-2024 Hospital Discharge instructions Patient Education 06/30/2024 15:22:17 Anorectal Abscess [...] beyond the abscess and look like a redstreak on the skin. A painful lump or [...] Follow these instructions at home: Medicines Take wchh-lbj-vgquvjf and prescription medicines only as told by [...] and water are not available, use hand head of digital advertising & integration. ?Change your dressing as told by your provider. ?Leave stitches (sutures), skin glue, or tape strips in place. These skin closures may need to stayin place for 2 weeks or longer. If [...] to prevent skin damage. The risk of damageis higher if you cannot feel pain, heat, or cold. General instructions Take a sitz bath 3 4 times a day and after you poop. A sitz bath is a shallow, warm water bath thatyou sit down in. The water should only come up to your hips and should cover your butt. Follow instructions from your provider about what you may eat and drink. Keep all follow-up visits. Your provider may need to remove stitches and make sure that the abscesshas gone away. Where to find more information [place] [employer]: [email or web address] [...] provider. Document Revised: 05/01/2023 Document Reviewed: 05/01/2023 Spotjournal Patient Education 2023 [employer]. Follow Up Care 06/30/2024 11:06:32 With:XXXX NONE Address: [place] When:07/03/2024 14:38:40 Comments:Follow-up with your colorectal surgeon [facility] 10-08-2024 NoteED Patient Education Note Gastroenterology Anorectal Abscess An [...] cracks may form if you have constipation thatlasts for a long time or does not [...] provider puts a gloved finger into your anusand rectum to look for problems. ? A [...] these instructions at home: Medicines ? Take qsed-qha-kshcqrr and prescription medicines only as told by [...] and water are not available, use hand head of digital advertising & integration. ? Change your dressing as told by [...] away. Where to find more information ? [place] [employer]: [email or web address] Contact a health care provider if: ? You have any signs of an infection. ? You have a fever or chills. (more content not included)...[facility]09-20-2024 History of Present illness Narrative* Aniya Alvarez - 06/12/2024 12:34 PM EDT [facility] Refill Assessment Medication(s): Entyvio Patient's [...] progressing towards achieving therapeutic goals based on medication- specific laboratory parameters, disease state markers and outcomes. Office/provider notes have been reviewed prior to dispensing the medication. Neurology Technologist Assessment Patient confirmed: Yes Med/dose confirmed: Yes Supplies needed: No supplies needed Missed doses: No Estimated days supply on hand: 0 Next cycle/dose due: 06/24/24 Copay amount: 0 Payment confirmed: Yes Delivery method: FedEx Signature required: Waived on patient request Delivery address: [address] [place] [address] Delivery date: 06/19/24 Questions or concerns for [...] facility-administered medications on file prior to visit. [facility] RX SPECIALTY CLINICAL ASSESSMENT - INFLAMMATORY CONDITIONS [...] Alvarez CPhT [facility], Inflammatory P: [phone] F: [phone] documented in this encounterHenry County Hospital09-20-2024 NoteHNO ID: [id number] Author: ?, ?, ? Service: ? Author [...] been reviewed prior to dispensing the medication. Neurology Technologist Assessment Patient confirmed: Yes Med/dose confirmed: Yes Supplies needed: No supplies needed Missed doses: No Estimated days supply on hand: 0 Next cycle/dose due: 06/24/24 Copay amount: 0 Payment confirmed: Yes Delivery method: FedEx Signature required: Waived on patient request Delivery address: [address] [place] [address] Delivery date: 06/19/24 Questions or concerns for [...] facility-administered medications on file prior to visit. [facility] RX SPECIALTY CLINICAL ASSESSMENT - INFLAMMATORY CONDITIONS [...] Alvarez CPhT [facility] Inflammatory P: [phone] F: [phone]. Francis Hospital09-20-2024 History of Present illness Narrative* Aniya Alvarez - 06/12/2024 12:31 PM EDT [facility] has been servicing patient for cycles/refills of Entyvio. Plan Name: [employer] Phone/Fax: - / - CMJalbum Nelson: [id number] CHEVY reference number: [id number] Approval Dates: 06/12/2024-07/10/2024 Further approvals require updated office visit. [facility] will continue to service order accordingly. Aniya Alvarez CPhT [facility] Inflammatory P: [phone] F: [phone] documented in this encounterHenry County Hospital09-20-2024 NoteHNO ID: [id number] Author: ?, ?, ? Service: ? Author Type: ? Type: Progress Notes Filed: 06/12/2024 12:33 Note Text: [facility] has been servicing patient for cycles/refills of Entyvio. Plan Name: [employer] Phone/Fax: - / - CMM Nelson: [id number] CHEVY reference number: [id number] Approval Dates: 06/12/2024-07/10/2024 Further approvals require updated office visit. [facility] will continue to service order accordingly. Aniya Alvarez CPhT [facility] Inflammatory P: [phone] F: [phone]. Francis Hospital08-23-2024 History of Present illness Narrative* Aniya Alvarez - 05/15/2024 10:19 AM EDT [facility] Ref[facility] Assessment Medication(s): Entyvio Patient's [...] progressing towards achieving therapeutic goals based on medication- specific laboratory parameters, disease state markers and outcomes. Neurology Technologist Assessment Patient confirmed: Yes Med/dose confirmed: Yes Supplies needed: No supplies needed Missed doses: No Estimated days supply on hand: 0 Next cycle/dose due: 05/27/24 Copay amount: 0 Payment confirmed: Yes Delivery method: FedEx Signature required: Waived on patient request Delivery address: [address] [place] [address] Delivery date: 05/21/24 Questions or concerns for [...] facility-administered medications on file prior to visit. [facility] RX SPECIALTY CLINICAL ASSESSMENT - INFLAMMATORY CONDITIONS [...] Alvarez CPhT [facility] P: [phone] F: [phone] documented in this encounterHenry County Hospital08-23-2024 NoteHNO ID: [id number] Author: TAYLER HANKS [facility] Service: ? Author Type: ? Type: Progress [...] and outcomes. Tayler Hanks, PharmD Clinical Pharmacist [facility] Pool: P CC [facility] Pool #: [id number] Neurology Technologist Assessment Patient confirmed: Yes Med/dose confirmed: Yes Supplies needed: No supplies needed Missed doses: No Estimated days supply on hand: 0 Next cycle/dose due: 05/27/24 Copay amount: 0 Payment confirmed: Yes Delivery method: FedEx Signature required: Waived on patient request Delivery address: [address] [place] [address] Delivery date: 05/21/24 Questions or concerns for [...] facility-administered medications on file prior to visit. [facility] RX SPECIALTY CLINICAL ASSESSMENT - INFLAMMATORY CONDITIONS [...] Alvarez CPhT [facility]ammatory P: [phone] F: [phone]. Francis Hospital08-21-2024 Telephone encounter Note* Telephone Encounter - Yannick Davidson - 05/13/2024 11:03 AM EDT Called and spoke to patient, appt with Dr White has been canceled. Patient states she tried to schedule a follow up with Dr Thakkar and was told he does not treat perianal abscess, advised pt I will look into this matter and call her back. [facility] Work Phone: [phone]) 545-387008-21-2024 Miscellaneous Notes* Telephone Encounter - Yannick Davidson - 05/13/2024 11:03 AM EDT Called and spoke to patient, appt with Dr White has been canceled. Patient states she tried to schedule a follow up with Dr Thakkar and was told he does not treat perianal abscess, advised pt I will look into this matter and call her back. * Telephone Encounter - Candis Laughlin RN - 05/13/2024 10:46 AM EDT Patient is currently a [facility] patient who saw Dr. Thakkar in September with the below note : evaluation of crohn's disease. She was last seen in the office on 08/02/23. She was previously seenin the hospital on 05/01/23. 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 Patient needs to follow up with [facility] due to the Crohns and severity of perianal disease documented in this encounterHenry County Hospital08-21-2024 Telephone encounter Note * Telephone Encounter - Candis Laughlin RN - 05/13/2024 10:46 AM EDT Patient is currently a [facility] patient who saw Dr. Thakkar in September with the below note : evaluation of crohn's disease. She was last seen in the office on 08/02/23. She was previously seenin the hospital on 05/01/23. 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 Patient needs to follow up with [facility] due to the Crohns and severity of perianal disease [facility] Work Phone: [phone]) 763-926807-17-2024 Hospital Discharge instructions Patient Education 04/08/2024 16:13:11 Crohn's Disease [...] who specializes in diseases of the digestive tract(diet tech). How is this treated? There is no [...] Follow these instructions at home: Medicines Take gjmo-jmq-gvuadwv and prescription medicines only as told by [...] provider. Document Revised: 03/15/2022 Document Reviewed: 03/15/2022 Spotjournal Patient Education 2022 [employer]. 04/08/2024 16:13:11 Abdominal Pain, Adult Abdominal Pain, [...] Follow these instructions at home: Medicines Take tprv-mes-kysqxoh and prescription medicines only as told by [...] Watch your condition for any changes. Take hlhq-kaz-byqoadc and prescription medicines only as told by [...] provider. Document Revised: 10/28/2020 Document Reviewed: 01/18/2020 Spotjournal Patient Education 2022 [employer]. Follow Up Care 04/08/2024 11:35:23 With:Shilpa العلي Address: [facility] [address], [facility] [address] [place] [address] [facility] (1) When:04/11/2024 14:45:16 Comments:Call Dr for diagnosis based follow up [facility]07-17-2024 NoteED Patient Education Note Gastroenterology Abdominal Pain, Adult [...] these instructions at home: Medicines ? Take kmfu-neg-mcipkei and prescription medicines only as told by [...] your condition for any changes. ? Take tobb-yew-xxzifpc and prescription medicines only as told by [...] provider. Document Revised: 10/28/2020 Document Reviewed: 01/18/2020 Spotjournal Patient Education ? 2022 [employer]. Immunology Crohn's Disease Crohn's disease is a [...] include: ? Blood terry (more content not included)...[facility]07-17-2024 Evaluation + Plan noteExtracted from: Title:ED Note Author:Ramesh LEDESMA, Wil Ramirez te:04/08/24 Abdominal pain (R10.9: Unspe cified abdominal pain) Crohn's disease (K50.90: Crohn's disease, unspecified, without complications) Orders: dicyclomine, 10 mg = 1 cap(s), Oral, QID, X 7 day(s), # 28 cap(s), Refills(s) 0, [id number], cm, 04/08/24 11:39:00 EDT, Height/Length [...] Nausea/Vomiting, # 12 tab(s), Refills(s) 0, Pharmacy: [facility]/pharmacy #[id number], 167, cm, 04/08/24 11:39:00 EDT, [...] prednisone., # 72 tab(s), Refills(s) 0, Pharmacy: [facility]/pharmacy #[id number], 167, cm, 04/08/24 11:39:00 EDT, [...] Level Manual Diff UA with Cult Rflx [facility]07-10-2024 Telephone encounter Note* Telephone Encounter - Maddie [...] the meantime her prescription be switched to [facility] d/t proximity to home. [facility]07-10-2024 Miscellaneous Notes* Telephone Encounter - Maddie Sevilla [...] the meantime her prescription be switched to [facility] d/t proximity to home. [...] that would be appreciated! documented in this encounterHenry County Hospital07-10-2024 Telephone encounter Note * Telephone Encounter - [...] advise next steps that would be appreciated! [facility]07-10-2024 Nurse Note* Maddie Sevilla RN - 04/01/2024 9:42 AM EDT Rola Aguilar Reason for therapy: IBD Ordering Physician: Dr. Humphries Supervising/Billing Physician: Dr. Philip PRE MEDICATIONS ADMINISTERED: Acetaminophen (see MAR) INFUSION MEDICATION ADMINISTERED: Entyvio (see NOV) Dose #: 2 Start: 936 / Stop: 101 Fevers in last 7 days: No Rash: [...] continued instruction and follow up as directed [facility]07-10-2024 Nurse Note* Maddie Sevilla RN - 04/01/2024 9:42 AM EDT Rola Aguilar Reason for therapy: IBD Ordering Physician: Dr. Humphries Supervising/Billing Physician: Dr. Philip PRE MEDICATIONS ADMINISTERED: Acetaminophen (see MAR) INFUSION MEDICATION ADMINISTERED: Entyvio (see MAR) Dose #: 2 Start: 936 / Stop: 1012 Fevers in last 7 [...] follow up as directed documented in this encounterHenry County Hospital07-03-2024 Telephone encounter Note * Telephone Encounter - Maddie Sevilla RN - 03/25/2024 3:00 PM EDT Called patient re: missed appt for entyvio infusion. Left voicemail reminding patient of loading dose schedule, requesting a return call to us & phone number provided to [facility] infusion center. [facility]07-03-2024 Miscellaneous Notes* Telephone Encounter - Maddie Sevilla RN - 03/25/2024 3:00 PM EDT Called patient re: missed appt for entyvio infusion. Left voicemail reminding patient of loading dose schedule, requesting a return call to us & phone number provided to [facility] infusion center. documented in this encounterHenry County Hospital06-20-2024 Nurse Note* Jagjit Yap RN - 03/12/2024 10:27 AM EDT Rola Aguilar Reason for therapy: IBD Ordering Physician: Dr. Humphries Supervising/Billing Physician: Dr. Ornelas PRE MEDICATIONS ADMINISTERED: Acetaminophen (see MAR) INFUSION MEDICATION ADMINISTERED: Entyvio (see NOV) Dose #: 1 Start: 0940 AM / [...] instructed to call with any further issues [facility]06-20-20[facility] Nurse Note* Jagjit Yap RN - 03/12/2024 10:27 AM EDT Rola Aguilar Reason for therapy: IBD Ordering Physician: Dr. Humphries Supervising/Billing Physician: Dr. Ornelas PRE MEDICATIONS ADMINISTERED: Acetaminophen (see NOV) INFUSION MEDICATION ADMINISTERED: Entyvio (see NOV) Dose #: 1 Start: 0940 AM / [...] with any further issues documented in this encounterHenry County Hospital06-17-2024 Telephone encounter Note * Telephone Encounter - Ira Wilder - 03/09/2024 1:53 PM EDT Infusion scheduled Th. 03/12. Requested to schedule subsequent visits when she is here. Scheduled follow up with Dr. Humphries on 06/02 at [facility] Thank you Ira Wilder PSS [facility]06-17-2024 Miscellaneous Notes* Telephone Encounter - Ira Wilder - 03/09/2024 1:53 PM EDT Infusion scheduled Th. 03/12. Requested to schedule subsequent visits when she is here. Scheduled follow up with Dr. Humphries on 06/02 at [facility] Thank you Ira Wilder PSS * Telephone Encounter - Brittny Gan RN - 03/09/2024 1:06 PM EDT Images from the original note were not included. [facility] scheduling team: Please schedule the following Entyvio infusion Infusions to be given on week 0, 2 and 6 ( week of 03/09, 03/23, 04/20) Please call patient with appt details Thank you Brittny Gan RN [facility] Scheduling team: Please schedule the following May/ with Doctor Humphries Please call patient with appt details Thank you Brittny Gan RN I spoke with [place] plan has been approved Entyvio infusion week 0, 2 and 6 ( week of 03/09, 03/23, 04/20) Pen to start week 14 (06/15/24) I would have scheduling call her to arrange appts Message routed to [facility] so they are aware for delivery of pen Rola verbalized understanding No further questions Brittny Gan RN Auth/Cert 03/09/2024 11:49 AM Bandar Davalos - - Note: === PHARMACY TEAM ==== APPROVAL RECEIVED Benefit Type: Medical Insurance Name: [employer] Location Tax ID: [id number]( ) Authorization received via fax Drug Name(s) & HCPCS Code(s): J3380 (HCPCS) - INJECTION, VEDOLIZUMAB Approval Date Range: 02-27-2024 to 05-29-2024 Approval #: [id number] Dose & Frequency: 300mg weeks 0,2,6 # Visits/Treatments (if applicable): 3 Temporary Site of Care Approval: N/A * Telephone Encounter - Brittny Gan RN - 03/05/2024 3:03 PM EDT PA on Entyvio infusions still pending Will check status on 03/09/24 Birttny Gan RN * Telephone Encounter - Brittny Gan RN - 02/26/2024 3:01 PM EDT I spoke with Rola yesterday in OV to discuss process for Entyvio ordering Advised pens will be sent to [facility] for insurance approval Plan for loading dose of infusions on week 0, 2 and 6 will also be sent to insurance Once approval comes back for both infusion and pen we can schedule the infusions at [facility] Advised patient I will be in contact with her on the status Brittny Gan RN [facility] Telephone encounter Note * Telephone Encounter - Brittny Gan RN - 03/09/2024 1:06 PM EDT Images from the original note were not included. NOG scheduling team: Please schedule the following Entyvio infusion Infusions to be given on week 0, 2 and 6 ( week of 03/09, 03/23, 04/20) Please call patient with appt details Thank you Brittny Gan RN [facility] Scheduling team: Please schedule the following May with Doctor Diana Please call patient with appt details Thank you Brittny Gan RN I spoke with Rola, advised plan has been approved Entyvio infusion week 0, 2 and 6 ( week of 03/09, 03/23, 04/20) Pen to start week 14 (06/15/24) I would have scheduling call her to arrange appts Message routed to [facility] so they are aware for delivery of pen Rola verbalized understanding No further questions Brittny Gan RN Auth/Cert 03/09/2024 11:49 AM Bandar Davalos - - Note: === PHARMACY TEAM ==== APPROVAL RECEIVED Benefit Type: Medical Insurance Name: [employer] Serv[employer] Location Tax ID: [id number]( ) Authorization received via fax Drug Name(s) & HCPCS Code(s): J3380 (HCPCS) - INJECTION, VEDOLIZUMAB Approval Date Range: 02-27-2024 to 05-29-2024 Approval #: [id number] Dose & Frequency: 300mg weeks 0,2,6 # Visits/Treatments (if applicable): 3 Temporary Site of Care Approval: N/A [facility] Hospital Discharge instructions Patient Education 03/08/2024 15:41:51 [...] who specializes in diseases of the digestive tract(diet tech). How is this treated? There is no [...] Follow these instructions at home: Medicines Take jnpv-vsp-cffcwkm and prescription medicines only as told by [...] provider. Document Revised: 03/15/2022 Document Reviewed: 03/15/2022 Spotjournal Patient Education 2022 [employer]. 03/08/2024 15:41:51 Abdominal Pain, Adult Abdominal Pain, [...] Follow these instructions at home: Medicines Take kotw-zjl-wtfmbzy and prescription medicines only as told by [...] Watch your condition for any changes. Take hcww-ror-hevxnsf and prescription medicines only as told by [...] provider. Document Revised: 10/28/2020 Document Reviewed: 01/18/2020 Spotjournal Patient Education 2022 [employer]. Follow Up Care 03/08/2024 09:42:02 With:Make sure to follow-up with your primary doctor and your GI as discussed. Return to the emergency room if your pain gets worse or any new symptoms. Address:Unknown When:03/11/2024 15:24:40 [facility]06-16-2024 Evaluation + Plan noteExtracted from: Title:ED Note Author:Carolyn Mcmahon M.D. te:03/08/24 1. Abdominal pain (R10.9: Un specified [...] daily, # 72 tab(s), Refills(s) 0, Pharmacy: [facility] promethazine 25 mg + Sodium Chloride 0.9% [...] Beta Hcg Qual UA with Cult Rflx [facility]06-13-2024 Telephone encounter Note* Telephone Encounter - Brittny Gan RN - 03/05/2024 3:03 PM EDT PA on Entyvio infusions still pending Will check status on 03/09/24 Brittny Gan RN [facility]06[facility] Hospital Discharge instructions Patient Education 03/04/2024 13:06:48 [...] oral rehydration solution (ORS). This is an imem-iaq-bdxghhb medicine that helps return your body to [...] drinks, sports drinks, and soda. Eat bland, vrmr-kk-jlgdvc foods in small amounts as you are able. These foods include bananas, applesauce, rice, lean meats, toast, and crackers. Avoid alcohol. Avoid spicy or fatty foods. Medicines Take alco-dmk-veykong and prescription medicines only as told by your health care provider. If you were prescribed an antibiotic medicine, take it as told by your health care provider. Do notstop using the antibiotic even if you start to feel better. General instructions Wash your hands often using soap and water. If soap and water are not available, use a hand head of digital advertising & integration. Others in the household should wash their [...] soap and water are not available, usehand head of digital advertising & integration. Contact a health care provider if your diarrhea gets worse or you have new symptoms. Get help right away if you have signs of dehydration. This information is not intended to replace advice given to you by your health care provider. Make sure you discuss any questions you have with your health care provider. Document Revised: 11/30/2022 Document Reviewed: 03/21/2022 Spotjournal Patient Education 2022 [employer]. 03/04/2024 13:06:48 Nausea and Vomiting, Adult Nausea [...] water added (diluted fruit juice). Eat bland, olur-mq-cwpaug foods in small amounts as you are able. These foods include bananas, applesauce, rice, lean meats, toast, and crackers. Avoid fluids that contain a lot of sugar or caffeine, such as energy drinks, sports drinks, and soda. Avoid alcohol. Avoid spicy or fatty foods. General instructions Take pqiu-sti-ukvzatm and prescription medicines only as told by your health care provider. Drink enough fluid to keep your urine pale yellow. Wash your hands often using soap and water for at least 20 seconds. If soap and water are not available, use hand head of digital advertising & integration. Make sure that everyone in your household [...] eating and drinking to prevent dehydration. Take mqqp-bnj-ncqbfth and prescription medicines only as told by [...] provider. Document Revised: 03/16/2022 Document Reviewed: 03/16/2022 Spotjournal Patient Education 2022 [employer]. 03/04/2024 13:06:48 Abdominal Pain, Adult Abdominal Pain, [...] Follow these instructions at home: Medicines Take abpi-ksn-svttheu and prescription medicines only as told by [...] Watch your condition for any changes. Take skvw-aje-xstzlqn and prescription medicines only as told by [...] provider. Document Revised: 10/28/2020 Document Reviewed: 01/18/2020 Spotjournal Patient Education 2022 [employer]. Follow Up Care 03/04/2024 09:15:36 With:Make sure to follow-up with your primary doctor and your GI doctor as discussed. Return to the emergency room if your pain gets worse, vomiting recurs or any new symptoms. Address:Unknown When:03/07/2024 12:58:23 [facility]06-12-2024 Evaluation + Plan noteExtracted from: Title:ED Note Author:Carolyn Mcmahon M.D. te:03/04/24 1. Abdominal pain (R10.9: Un specified abdominal pain) 2. Vomiting and diarrhea (R11.10: Vomiting, unspecified) Diarrhea, unspecified (R19.7: Diarrhea, unspecified) Orders: dicyclomine, 20 mg = 2 cap(s), Oral, QID, # 20 cap(s), Refills(s) 0, Pharmacy: [facility]/pharmacy #[id number], 167, cm, 03/04/24 9:30:00 EDT, [...] Nausea/Vomiting, # 12 tab(s), Refills(s) 0, Pharmacy: [facility]/pharmacy #[id number], 167, cm, 03/04/24 9:30:00 EDT, [...] Diagnostic Tests Pending * Urine Culture 03/04/24 [facility]06-09-2024 Hospital Discharge instructions Patient Education 03/01/2024 12:07:13 [...] who specializes in diseases of the digestive tract(diet tech). How is this treated? There is no [...] Follow these instructions at home: Medicines Take piim-xbi-pedxtwz and prescription medicines only as told by [...] provider. Document Revised: 03/15/2022 Document Reviewed: 03/15/2022 Spotjournal Patient Education 2022 [employer]. 03/01/2024 12:07:09 Managing Anxiety, Adult Managing Anxiety, [...] competition. Stress normally passes after the triggering ev ent has ended. Anxiety is caused by something [...] health careprovider. Avoid caffeine, alcohol, and certain ctnl-vwc-jvgzxqi cold medicines. These may make you feel worse. Ask your pharmacist which medicines to avoid. General instructions Take hqch-ryu-xklsqkm and prescription medicines only as told by [...] Depression Association of [place] (ADAA): www.adaa.org National [place] on Mental Illness (PAUL): www.paul.org Contact a [...] department or: Call your local emergency services (911 in the [place] Call a suicide crisis helpline, such as the National Suicide Prevention Lifeline at or 837 in the [place]. This is open 24 hours a day in the [place] Text the Crisis Text Line at 192416 (in the [place] Summary Taking steps to [...] provider. Document Revised: 04/04/2022 Document Reviewed: 12/31/2021 Elsevier Patient Education 2022 [employer]. 03/01/2024 12:07:05 Bipolar I Disorder Bipolar I [...] and make symptoms worse. General instructions Take bhvu-dls-noqutmz and prescription medicines only as told by [...] important. Where to find more information National [place] on Mental Illness: paul.org National [place] of Mental Health: nimh.nih.gov Contact a health [...] department or: Call your local emergency services (181 in the [place] Call a suicide crisis helpline, such as the National Suicide Prevention Lifeline at or 132 in the [place]. This is open 24 hours a day in the [place] Text the Crisis Text Line at 247776 (in the [place].). Summary Bipolar I disorder [...] provider. Document Revised: 04/05/2022 Document Reviewed: 03/01/2022 Spotjournal Patient Education 2022 [employer]. 03/01/2024 12:07:04 Health Risks of Smoking Health [...] Department of Health and Human Services: www.smokefree.gov [place] Lung Association: www.freedomfromsmoking.org [place] Heart Association: www.heart.org Where to find more [...] provider. Document Revised: 09/11/2022 Document Reviewed: 09/11/2022 Spotjournal Patient Education 2022 [employer]. Follow Up Care 01/27/2024 07:25:50 With:Charles LUNDBERG, SALES DEVELOPMENT ASSOCIATE-MANAGER STORAGE, Zuly Andersen Address: [address] [place] [phone] When:Within 6 Month(s) Comments:chronic care [facility] 06-05-2024 Telephone encounter Note* Telephone Encounter - Brittny Gan RN - 02/26/2024 3:01 PM EDT I spoke with Rola yesterday in OV to discuss process for Entyvio ordering Advised pens will be sent to [facility] for insurance approval Plan for loading dose of infusions on week 0, 2 and 6 will also be sent to insurance Once approval comes back for both infusion and pen we can schedule the infusions at [facility] Advised patient I will be in contact with her on the status Brittny Gan RN [facility]06-05[facility] History of Present illness Narrative* Marija Cerda - 02/26/2024 1:18 PM EDT [facility] received prescription(s) for Entyvio from Dr. Lee Ann Humphries's office. Benefits investigation was conducted, indicating that a prior authorization is required by patient's insurance plan with [employer] . Encounter will be updated once prior authorization has been submitted by [facility]. Marija Cerda [facility] P: [phone] F:[phone] * Aniya Alvarez - 02/26/2024 1:18 PM EDT Prior authorization for Entyvio was initiated and is pending review. Plan Name: Ginna Conti Agent: RHIANNON REECE Nelson: [id number] Timeline: June Alvarez [facility], Inflammatory P: [phone] F: [phone] documented in this encounterHenry [facility] Hospital06-05-2024 NoteHNO ID: [id number] Author: ?, ?, ? Service: ? Author Type: ? Type: Progress Notes Filed: 02/26/2024 14:41 Note Text: Prior authorization for Entyvio was initiated and is pending review. Plan Name: Ginna Conti Agent: RHIANNON REECE Nelson: [id number] Timeline: Standard Aniya Alvarez [facility], Inflammatory P: [phone] F: [phone]. Francis Hospital06-05-2024 NoteHNO ID: [id number] Author: ZAIRA CAMPBELL [facility] Service: ? Author Type: Pharmacist Type: Progress Notes Filed: 04/21/2024 10:21 Note Text: [facility] received prescription(s) for Entyvio pens from Dr. Lee Ann Humphries's office. Benefits investigation was conducted, indicating that a prior authorization is required. CHEVY was approved with details listed below: Plan Name: Ginna REECE reference number: [id number] Approval Dates: 02/26/24 through 05/24/24 Pt's copay [...] Brigitte Tran PA-C No Ileostomy in place ([facility]) 01/18/2024 Brigitte Tran PA-C No ABLA (acute blood loss anemia) 10/25/2023 Marsha Gregory APRN.MANAGER STORAGE No Overview Addendum 10/27/2023 8:56 AM by [...] 10/24/2023 Kale Prado MD No Ileostomy prolapse ([facility]) 10/24/2023 Kale Prado MD No Maternal iron deficiency anemia complicating , third trimester 09/13/2023 Mera Nicole, RN No Impaired intestinal absorption 09/13/2023 Mera Nicole, RN No Crohn's disease of large intestine without complication (HCC) 08/21/2023 Shin Corcoran PA-C No Crohn's disease of small and large [...] ED Obesity, Class I, BMI 30-34.9 05/01/2023 Nellie Garcia MD No Imaging of gastrointestinal tract [...] of colon with complication (HCC) 01/17/2023 Jody Whittington DO No Overview Signed 02/04/2023 9:14 AM by Rut Lagos MD -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 She was treated with PDN, ADA from [id number], lost response due to development of AB, UST from [phone] lost insurance and was not on medications. [...] prednisone taper History of creation of ostomy ([facility]) 01/22/2021 Bandar Becerra MD No Obesity, Class II, BMI 35-39.9 08/26/2020 Bushra Moy MD No Hypokalemia 09/12/2018 James Garcias PA-C No Malnutrition of mild degree (HCC) 09/11/2018 Corinna Rasmussen (Rd), RD No Perineal abscess 09/09/2018 James Garcias PA-C No Overview Signed 09/11/2018 12:09 PM by James Garcias (Pa) Added automatically from request for surgery [id number] Rubella non-immune status, delivered, current hospitalization 10/25/2023 Marsha Gregory APRN.MANAGER STORAGE 10/27/2023 Kale Prado MD Overview Signed 10/27/2023 8:54 AM by Kale Prado MD VIS provided by SHAHBAZ melvin (more content not included)...[facility]06-05-2024 Note HNO ID: [id number] Author: ?, ?, ? Service: ? Author Type: ? Type: Progress Notes Filed: 02/26/2024 13:23 Note Text: [facility] received prescription(s) for Entyvio from Dr. Lee Ann Humphries's office. Benefits investigation was conducted, indicating that a prior authorization is required by patient's insurance plan with [facility] . Encounter will be updated once prior authorization has been submitted by [facility]. Marija Cerda [facility] P: [phone] F:[phone]. Francis Hospital06-05-2024 NoteHNO ID: [id number] Author: ZAIRA CAMPBELL [facility] Service: ? Author Type: Pharmacist Type: Progress Notes Filed: 03/10/2024 09:08 Note Text: Entyvio infusion appointments are scheduled as follows: week 0, 2 and 6 ( week of 03/09, 03/23, 04/20) Pen to start week 14 (06/15/24) [facility] will follow her chart and schedule first Entyvio pen shipment accordingly once IV doses are received. Rx has been profiled at [facility] (confirmed $0 copay). Amina Campbell, PharmD Clinical Pharmacist, [employer] [facility] ; Pool: P [facility] Pool #: [id number] Private Hospital06-05-2024 NoteHNO ID: [id number] Author: ZAIRA CAMPBELL [facility] Service: ? Author Type: Pharmacist Type: Progress [...] March to set up first SQ shipment. Antonia OlmedoD Clinical Pharmacist, [employer] [facility] ; Pool: P [facility] Pool #: [id number] Private Hospital06-05-2024 NoteHNO ID: [id number] Author: ?, ?, ? Service: ? Author Type: ? Type: Progress Notes Filed: 03/02/2024 15:13 Note Text: Entyvio PA was approved with details listed below. Plan Name: Ginna Plan Agent/Nelson: CMM / [id number] Phone/ / - PA reference number: [id number] Approval Dates: 02/26/24 through 05/24/24 Prescriptions will now be processed through [facility] for determination of next steps. Corinna Pfeiffer CPhT, Debug Technician, Inflammatory/Allergy [facility] P: [phone] F: [phone]. Francis Hospital06-04-2024 Instructions* Patient Instructions* Lee Ann Humphries [...] any questions or concerns. documented in this encounterHenry [facility] Hospital06-04-2024 History and physical note * Lee Ann [...] eGFR >=60 mL/min/1.73m 130 117 Latest Ref [facility] 01/18/2024 TB Nil <=8.00 IU/mL 0.02 TB1 [...] C Antibody IA Negative Negative Latest Ref Rn 01/18/2024 Shigella spp./Enteroinvasive E.coli DNA Not Detected [...] pen option approved. We will submit to [facility] for approval. I will see her back after she has started the loading infusions and we will continue her prednisone until she is stable at that time. She was encouraged to call with any questions or concerns. [facility]-04[facility] History and physical note* Lee Ann Humphries [...] pen option approved. We will submit to [facility] for approval. I will see her back after she has started the loading infusions and we will continue her prednisone until she is stable at that time. She was encouraged to call with any questions or concerns. documented in this encounterHenry [facility] Hospital05-02-2024 Telephone encounter Note * Telephone Encounter - Bill Fernandez - 01/23/2024 11:14 AM EDT Pt is scheduled in the February 24 3:20pm slot held for her per message below. Thank you, [facility]05-02-2024 Miscellaneous Notes* Telephone Encounter - Bill Fernandez - 01/23/2024 11:14 AM EDT Pt is scheduled in the February 24 3:20pm slot held for her per message below. Thank you, * Telephone Encounter - Nessa Douglass - 01/21/2024 2:55 PM EDT LVM offering appt of February 24. * Telephone Encounter - Brittny Gan, SHAHBAZ - 01/21/2024 2:06 PM EDT Scheduling team: Please offer patient the following appt 02/24 at 3:20 (slot is on hold) with Doctor Humphries Please call patient with [...] PA-C Gastroenterology and Hepatology documented in this encounterHenry County Hospital04-30-2024 Telephone encounter Note * Telephone Encounter - Nessa Douglass - 01/21/2024 2:55 PM EDT [facility] offering appt of February 24. [facility]04-30-2024 Telephone encounter Note* Telephone Encounter - Brittny Gan, SHAHBAZ - 01/21/2024 2:06 PM EDT Scheduling team: Please offer patient the following appt 02/24 at 3:20 (slot is on hold) with Doctor Diana Please call patient with appt details Thank you Brittny Gan, RN [facility]04-29-2024 Telephone encounter Note* Telephone Encounter - Lee Ann Humphries DO - 01/20/2024 5:50 PM EDT Please try to arrange follow-up in 4 weeks so we can discuss biologic therapy. [facility] Work Phone: [phone] Telephone encounter Note* Telephone Encounter - Jenn Santiago APRN.CNP - 01/20/2024 4:36 PM EDT Just to provide update-pt expressed desire to follow up with Dr. Humphries specifically.Jenn Parry [facility] Work Phone: [phone]) 919-615404-29-2024 NoteHNO ID: [id number] Author: JOHN GARRETT RN Service: Care Management Author Type: Registered Nurse Type: Care Mgt Initial Assessment Filed: 01/20/2024 16:01 Note Text: CARE MANAGEMENT: ASSESSMENT AND DISCHARGE PLAN SERVICE DATE: January 20, 2024 SERVICE TIME: 3:57 PM PCP: Kale Rendon MD Primary Contact: Extended Emergency Contact Information Primary Emergency Contact: Rashi Deluca Relation: Mother Secondary Emergency Contact: CaraArtem [facility] Mobile Relation: Significant other Admission Status: Inpatient Insurance [facility] Discharge Planning requested by: Attending Provider Potential Transition Plans Home Advance Directives Current 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 Denies ETOH or drug abuse. Pt denies any safety or social concerns. Patient reports finances are challenging, but able to meet basic needs. Boyfriend to transport at d/c. Anticipate d/c home with self care. Advance Care Planning HCPOA paperwok on file within [facility] and verified to be current as of date/time of this note: No Legal Next of Kin Hierarchy per [place] Revised Code: Parents - Rashi Deluca John Garrett RN January 20, 2024 SIGNATURE: John Garrett RN PATIENT NAME: Rola Aguilar DATE: January 20, 2024 TIME: 3:57 PM CONTACT #: [phone] Telephone encounter Note* Telephone Encounter - Angel Jaquez PA-C - 01/20/2024 1:50 PM EDT Hi! The patient needs to follow-up with any GI that is available for Crohn's colitis with diverting loop ileostomy. Please arrange with first available provider. Thanks! Angel Jaquez PA-C Gastroenterology and Hepatology [facility]04-29-2024 NoteHNO ID: [id number] Author: ANGEL JAQUEZ PA-C Service: Gastroenterology Author Type: Physician Director Clinical Research Type: Plan of Care Filed: 01/20/2024 13:50 [...] for IBD. Angel Jaquez PA-C Gastroenterology and HepatologyFaWorcester County [id number] NoteHNO ID: [id number] Author: JAZMIN GUSMAN RN Service: Nursing Author Type: Registered Nurse Type: Nursing Progress Note Filed: 01/19/2024 22:50 Note Text: Other: 2100 Patient refusing ordered soap suds enema at this time.[facility] 01-19-2024 NoteHNO ID: [id number] Author: MASHA CEDILLO MD Service: General Internal [...] -- 01/18/24 0545 activity - mobilize patient (mn,sd) VTE Prophylaxis: VTE prophylaxis appropriate regular color SIGNATURE: Masha Cedillo MD PATIENT NAME: Rola Aguilar DATE: January 19, 2024 TIME: 11:21 [facility]04-27-2024 NoteBorderline elevated. Re-evaluation in 4-6 weeks is recommended if clinically indicated.[facility] HospitalComment on above:Order Comment: Specimen Type: STOOL SPECIMENOrdering Facility: [facility] Address:[address] [place] [id number] Comment: On February 12, 2023, [facility] [employer] implemented a new fecal calprotectin method, the DiaS[employer] Liaison Calprotectin assay. For assistance with interpretation of results in patients undergoing serial monitoring, contact Client Services at [phone] or [phone] to discuss options, preferably within 7 days of issuing this report. Interpretation: <50.0 ug/g: Normal 50.0 ug/g - 120.0 ug/g: Borderline elevated. Re-evaluation in 4-6 weeks is recommended if clinically indicated. >120.0 ug/g: ElevatedPerformed By: #### [id number], [id number] ####[facility] [id number] [address] [place] OF [id number] NoteHNO ID: [id number] Author: BRIGITTE TRAN PA-C Service: General Internal Medicine Author Type: Physician Director Clinical Research Type: Plan of Care Filed: 01/18/2024 05:59 [...] section 10/24/23. Has seen [facility] but not since 03/05/2023 and most recently [...] section 10/24/23. Has seen [facility] but not since 03/05/2023 and most recently [...] which included preparing to see the patient, wzrc-ta-nxxz patient care, completing clinical documentation, obtaining and/or reviewing separately obtained history, performing a medically appropriate examination, counseling and educating the patient/family/caregiver, ordering medications, tests, or procedures, communicating with other HCPs (not separately reported), independently interpreting results (not separately reported), communicating results to the patient/family/caregiver, and care coordination (not separately reported). SIGNATURE: Brigitte Tran PA-C PATIENT NAME: Rola Aguilar DATE: December (more content not included)...[id number] Telephone encounter Note* Telephone Encounter - Ted [...] follow up as needed. Ted Rodriguez RN [facility]04-26-2024 Miscellaneous Notes* Telephone Encounter - Ted Brito [...] needed. Ted Rodriguez RN documented in this encounterHenry County Hospital03-30-2024 Hospital Discharge instructions Patient Education 12/21/2023 21:17:15 [...] who specializes in diseases of the digestive tract(diet tech). How is this treated? There is no [...] Follow these instructions at home: Medicines Take vzsq-bjh-drhtbnf and prescription medicines only as told by [...] provider. Document Revised: 03/15/2022 Document Reviewed: 03/15/2022 Spotjournal Patient Education 2022 [employer]. Follow Up Care 12/21/2023 14:44:13 With:Ja Pérez Address: [address] [place], [place] [address] [address] [address] [phone] Business (1) When:12/24/2023 21:04:53 Comments:You can use [...] new or worsening symptoms. With:Kale RENDON Address: [address] [place], [place] [phone] Business (1) When:12/24/2023 21:04:49 [facility]03-30-2024 Evaluation + Plan noteExtracted from: Title:ED Note [...] ED for any new or worsening symptoms. DO ANTON Lakhani [facility]03-17-2024 Hospital Discharge instructions Patient Education 12/08/2023 00:09:55 [...] who specializes in diseases of the digestive tract(diet tech). How is this treated? There is no [...] Follow these instructions at home: Medicines Take rmec-fsf-tzaxsej and prescription medicines only as told by [...] provider. Document Revised: 03/15/2022 Document Reviewed: 03/15/2022 Spotjournal Patient Education 2022 [employer]. Follow Up Care 12/07/2023 18:42:40 With:Kale RENDON Address: [address] [place] [phone] Business (1) When:Within 3 Day(s) [facility]03-16-2024 Evaluation + Plan noteExtracted from: Title:ED Note [...] days, # 42 tab(s), Refills(s) 0, Pharmacy: [facility]/pharmacy #[id number], 167, cm, 12/07/23 18:59:00 EDT, [...] Saline Lock Insert UA With Cult Reflex [facility]03-11-2024 History of Present illness Narrative* Patricia Ramirez, SALES DEVELOPMENT ASSOCIATE.CNM - 12/02/2023 4:45 PM EDT EARLY VISIT Rola Aguilar is a 28 year old for a 2 week virtual virtual visit using AudioOnly Visit. It required patient-provider interaction for the medical decision making as documented below. I have communicated my name and active licensure. The patient's identity and physical location wereverified at the time of this visit. Either the patient or their legal customer account representative has been informed of the risks and benefits of -- and alternatives to -- treatment through a remote evaluation andconsents to proceed with the evaluation remotely. Delivery Summary: Marcella Marroquin [[id number]] Delivery Information: Delivery Date: 10/24/23 Delivery type: [...] issues Sleep: no sleep concerns, feels rested [place] since delivery: Not resumed Emotional support: Yes [...] 1 tablet by mouth once daily. VIT 55-BHGH-TAGZT-DHA ORAL Take by mouth. SUMAtriptan (IMITREX) 25 [...] needed Patricia Ramirez APRN.CNM documented in this encounterHenry County Hospital02-23-2024 Nurse Note* Nellie Glass RN - 11/15/2023 2:24 PM EST 2 week virtual visit. Pt has been identified by name and . Dunbar score assessment completed - see flow sheet. Pt reports abdominal pain, increase BM in ileostomy and rectally. Cody Ramirez CNM notified. Nellie Glass RN documented in this encounterHenry County Hospital02-23-2024 Instructions* Patient Instructions* Nellie Glass RN - 11/15/2023 2:20 PM EST [...] a friend, or practicing your morris or religious. For more information: support international www..net Support help line:571.561.7062 Emergency hotlines (available all the time, 15/04) National crisis text line: test HOME to 304768 about any type of crisis National suicide prevention hotline: 657.280.8911 Flesch- Danielle Grade level :8.1 Approved August 2018. This handout replaces depression published in Volume 58, number6, August 2013 [employer] Www.sharewithwomen.org [facility] Mommy and Me virtual support group 11:30am-1pm Support for mothers with new babies and toddlers Free offering -Join other moms in this causal virtual group setting. -Join with your little one(s) and talk about life with your new baby. -receive support from other new mothers and an experienced slip feeder. For more information or to register: -[facility] childbirth education [email or web address] or call [phone] The Fourth Trimester for women Dealing with the unexpected things that happen to your body in the months after childbirth is worthtalking about. Do you have incontinence, back pain or feelings of instability in your core after childbirth? Join a [facility] pelvic health physical therapist to learn best steps to recover after giving . Additional topics that will be discussed include returning to an exercise regimen, addressing incontinence issues and pelvic floor muscle function, and perineal scar management and evaluating core muscle health. Virtual class Dates and times 12pm: Nov 06 March 04 Jul 01 5pm: December 31 May 06 September 02 Hematite online visit [email or web address] documented in this encounterHenry County Hospital02-02-2024 History of Past illness Narrative* Problem Noted Date Diagnosed Date Resolved Date Rubella non-immune status, d elivered, current hospitalization 10/25/2023 10/27/2023 Overview: VIS provided by SHAHBAZ MMR desired on discharge day Non-reassuring status, [...] Overview: Added automatically from request for surgery [id number] Crohn's disease (regional enteritis) 08/22/2018 02/04/2023 Overview: Added automatically from request for surgery [id number] documented as of this encounter (statuses as of 12/02/2023) [facility]02-01-[facility] History of Present illness Narrative* Zita Dueñas MD - 10/24/2023 5:10 PM EST 1. [...] today by CS. 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 Anoop Lopez M.D. ca Dictated: 09/07/2023 [id number] Transcribed: 09/08/2023[facility] SystemComment on above:Result Comment: Electronically Signed By: Jessica GILES, Anoop Ward\.br\Date and Time Signed: 09/11/23 02:14 [id number] NoteThe following Patient Education Materials have been given to the patient: EducationM[facility]St[facility]12-[facility]-2023 Hospital Discharge instructions Follow Up Care 09/06/2023 16:41:53 With:Follow up with primary care provider Address:Unknown When:3 to 4 days Comments:Call for any problems.Call for fever > 100.5 FCall for severe abdominal painCall physician for heavy vaginal bleedingCall physician if symptoms worsenCall today to schedule your follow upReturn for contractions closer, longer, harderReturn for decreased movementReturn if ruptured membranesor vaginal bleeding [facility]12-15-2023 Evaluation + Plan note Diagnostic Tests Pending * Urine Culture 09/06/23 [facility]12-14-2023 History of Past illness Narrative* Problem Noted [...] Overview: Added automatically from request for surgery [id number] Crohn's disease (regional enteritis) 08/22/2018 02/04/2023 Overview: Added automatically from request for surgery [id number] documented as of this encounter (statuses as of 10/25/2023) [facility]12-14-2023 Miscellaneous Notes* Quick Notes - Nae Costa [...] up in 2 weeks documented in this encounterHenry County Hospital12-01-2023 History of Past illness Narrative* Problem [...] Overview: Added automatically from request for surgery [id number] Crohn's disease (regional enteritis) 08/22/2018 02/04/2023 Overview: Added automatically from request for surgery [id number] documented as of this encounter (statuses as of 09/06/2023) [facility]11-30-2023 Telephone encounter Note* Telephone Encounter - Mary Hancock - 08/22/2023 10:24 AM EST Tried calling patient to add her to schedule. Although chart seems patient is admitted at this time. [facility]11-30-2023 Miscellaneous Notes* Telephone Encounter - Mary Hancock - 08/22/2023 10:24 AM EST Tried calling patient to add her to schedule. Although chart seems patient is admitted at this time. * Telephone Encounter - Rosalba Wolf RN - 08/21/2023 3:26 PM EST Ok to add on Sep 10 at 11:40 or maybe Aug 30 if needs seen sooner. Jeanine Villa Jr., DO Schedulers , please schedule patient per above notes. Thank you Rosalba Wolf RN * Telephone Encounter - Briana Rose RN - 08/21/2023 11:47 AM EST Rosalba, can pt be scheduled with Dr. Villa in [place]?? Please advise. Thank you. Briana Rose RN [...] giving in 4-6 weeks. She lives in [place] so [place] the [place] side ([place] or [place]) would be preferred. Please arrange accordingly. Thanks! Angel Jaquez PA-C Gastroenterology and Hepatology documented in this encounterHenry County Hospital11-29-2023 Telephone encounter Note * Telephone Encounter - Rosalba Wolf RN - 08/21/2023 3:26 PM EST Ok to add on Sep 10 at 11:40 or maybe Aug 30 if needs seen sooner. Jeanine Villa Jr., DO Schedulers , please schedule patient per above notes. Thank you Rosalba Wolf RN [facility]11-29-2023 Telephone encounter Note* Telephone Encounter - Briana Rose RN - 08/21/2023 11:47 AM EST Rosalba, can pt be scheduled with Dr. Villa in [place]?? Please advise. Thank you. Briana Rose RN [facility] Work Phone: [phone]) 867-245011-29-2023 Telephone encounter Note* Telephone Encounter - Angel Jaquez PA-C - 08/21/2023 11:42 AM EST Hi! The patient is currently 29 weeks with crohn's disease. Most recent MRI showed active inflammation in the ascending, transverse and descending colon. She is hesitant about taking medications, however Dr. Humphries states she should be seen prior to her giving in 4-6 weeks. She lives in [place] so a provider [place] the [place] side ([place] or [place]) would be preferred. Please arrange accordingly. Thanks! Angel Jaquez PA-C Gastroenterology and Hepatology [facility]11-27-2023 Miscellaneous Notes* Telephone Encounter - Nellie Salgado RN - 08/19/2023 12:18 PM EST Discussed with Dr. Valderrama in person. Per Dr. Valderrama, patient should go to OB triage for evaluation. Call place to patient who was identified by name and . Patient notified of Dr. Valderrama's message.Patient verbalized understanding and states has no questions at this time. 3S notified, report given to Edith. Nellie Salgado RN * Telephone Encounter - Nellie Salgado RN - 08/19/2023 11:50 AM EST Receive call from patient who was identified by name and . 28.5 wga. Reports intermittent cramping over last 2 days. Reports pain is around umbilicus, rates 05/02, took 500mg of Tylenol at 0930 with [...] FM. Recommended increase hydration. Message forwarded to environmental emergencies planner provider. Nellie Salgado RN documented in this encounterHenry County Hospital11-13-2023 Miscellaneous Notes* Telephone Encounter - Rosalba Price RN - 08/05/2023 1:34 PM EST 2nd risk assessment form submitted 08/05/2023. Rosalba Price RN documented in this encounterHenry County Hospital11-09-2023 Miscellaneous Notes* Quick Notes - Nae Costa [...] growth scan next trimester documented in this encounterHenry County Hospital11-09-2023 Instructions* Patient Instructions* Nae Costa MD - [...] syphillis test retested. TDAP documented in this encounterHenry County Hospital11-04-2023 History of Past illness Narrative* Problem Noted [...] Overview: Added automatically from request for surgery [id number] Crohn's disease (regional enteritis) 08/22/2018 02/04/2023 Overview: Added automatically from request for surgery [id number] documented as of this encounter (statuses as of 2023) [facility]11-04-[facility] History of Past illness Narrative* Problem Noted [...] OOb and ambulation and IS No skilled [facility] needs at this time. Crohn's colitis 09/09/2018 02/04/2023 Overview: Added automatically from request for surgery [id number] Crohn's disease (regional enteritis) 08/22/2018 02/04/2023 Overview: Added automatically from request for surgery [id number] documented as of this encounter (statuses as of 08/05/2023) [facility]-04[facility] History of Past illness Narrative* Problem Noted [...] Overview: Added automatically from request for surgery [id number] Crohn's disease (regional enteritis) 08/22/2018 02/04/2023 Overview: Added automatically from request for surgery [id number] documented as of this encounter (statuses as of 08/19/2023) [facility]11-01-2023 Miscellaneous Notes* Telephone Encounter - Marsha Key RN - 07/24/2023 4:32 PM EDT Medication refill request Last seen for FOB visit: 07/04/2023 Upcoming OB appt 08/01/2023 Requested Prescriptions Pending Prescriptions Disp Refills sertraline (ZOLOFT) 50 mg tablet [Pharmacy Med Name: SERTRALINE HCL 25 MG TABLET] 90 tablet 3 Sig: Take 1 tablet by mouth once daily. Message forwarded to Dr. Igor Key RN documented in this encounterHenry County Hospital11-01-2023 Miscellaneous Notes* Telephone Encounter - Ted Brito [...] and left message to call or send Denatorhart message to schedule an appointment. AdvisedDr. Lagos wanted an appointment during to make sure symptoms are being managed well. Will follow up as needed. Ted Rodriguez RN documented in this encounterHenry County Hospital10-13-2023 Miscellaneous Notes* Telephone Encounter - Lynn Pena RN - 07/05/2023 9:00 AM EDT 1st risk assessment form submitted at 22.2 wks. Lynn Pena RN documented in this encounterHenry County Hospital10-13-2023 Miscellaneous Notes* Telephone Encounter - Nahomy Melton RN - 07/05/2023 8:55 AM EDT Called patient, identified by name and . Informed call is regarding scheduling MFM consult and u/s as ordered by primary OB. Verbalizes understanding, and agreement. G 2 P 1. H/o Crohn's disease, for > 10 years. First full term (40 weeks) baby weighed 5 lb 9 oz. 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 labs/Maternit 21 drawn today. Current medications: Periactin, Reglan and PNV. Appointments offered and accepted Jul 08 at the [facility] office, starting at 0800 Instructed to drink 16 oz of water en-route to appointment, verbalizes understanding and agreement.No questions/concerns at this time. documented in this encounterHenry County Hospital10-12-2023 Instructions* Patient Instructions* Nae Costa MD - 07/04/2023 9:20 AM EDT Please select the following link to access the [facility] Your Guide to a Healthy . [email or web address] documented in this encounterHenry County Hospital10-12-2023 History of Present illness Narrative* Nae Costa [...] crohns flare in april and did see chemical engineering technologist and had an ultrasound confirming dates. She [...] history: Denies any issues but baby was [id number] at 40 weeks Prior : never History [...] use: No Multivitamin with Folic acid: Yes Confucianism or heritage: No Would refuse blood transfusion [...] HOURS NEEDED FOR NAUSEA AND VOMITING VIT 31-WIFH-GDNUL-DHA ORAL Take by mouth. No current facility-administered [...] Plan to rescreen early third trimester. Nae oCsta MD ASSESSMENT: 27 year old at 22w1d [...] Level: 4 - Moderate documented in this encounterHenry County Hospital10-12-2023 Nurse Note* Ronda Shi Ma - 07/04/2023 9:04 AM EDT Child Adolescent Psychiatrist offered: Patient declines. documented in this encounterHenry County Hospital09-03-2023 Hospital Discharge instructions Patient Education 05/25/2023 23:07:00 [...] who specializes in diseases of the digestive tract(diet tech). How is this treated? There is no [...] Follow these instructions at home: Medicines Take ipkt-qxx-tuoctrz and prescription medicines only as told by [...] provider. Document Revised: 03/15/2022 Document Reviewed: 03/15/2022 Spotjournal Patient Education 2022 [employer]. Follow Up Care 05/25/2023 18:51:31 With:Ja Pérez Address: [address] [facility], [address] [phone] Business (1) When:05/28/2023 With:Kale RENDON Address: [address] [phone] Business (1) When:Within 3 Day(s) [facility]09-02-2023 Evaluation + Plan note Diagnostic Tests Pending * Urine Culture 05/25/23 [facility]08-08-2023 History of Past illness Narrative* [...] OOb and ambulation and IS No skilled [facility] needs at this time. Crohn's colitis 09/09/2018 02/04/2023 Overview: Added automatically from request for surgery [id number] Crohn's disease (regional enteritis) 08/22/2018 02/04/2023 Overview: Added automatically from request for surgery [id number] documented as of this encounter (statuses as of 07/05/2023) [facility] History of Past illness Narrative* Problem Noted Date Diagnosed Date Resolved Date 13 weeks gestation of 04/30/2023 07/04/2023 History of endoscopy 02/04/2023 023 Overview: 4/28/23: Moderate to severe inflammed mucosa was seen [...] OOb and ambulation and IS No skilled [facility] needs at this time. Crohn's colitis 09/09/2018 02/04/2023 Overview: Added automatically from request for surgery [id number] Crohn's disease (regional enteritis) 08/22/2018 02/04/2023 Overview: Added automatically from request for surgery [id number] documented as of this encounter (statuses as of 07/05/2023) [facility] History of Past illness Narrative* Problem Noted [...] OOb and ambulation and IS No skilled [facility] needs at this time. Crohn's colitis 09/09/2018 02/04/2023 Overview: Added automatically from request for surgery [id number] Crohn's disease (regional enteritis) 08/22/2018 02/04/2023 Overview: Added automatically from request for surgery [id number] documented as of this encounter (statuses as of 07/05/2023) [facility] History of Past illness Narrative* Problem Noted [...] Overview: Added automatically from request for surgery [id number] Crohn's disease (regional enteritis) 08/22/2018 02/04/2023 Overview: Added automatically from request for surgery [id number] documented as of this encounter (statuses as of 07/08/2023) [facility] History of Past illness Narrative* Problem Noted [...] OOb and ambulation and IS No skilled [facility] needs at this time. Crohn's colitis 09/09/2018 02/04/2023 Overview: Added automatically from request for surgery [id number] Crohn's disease (regional enteritis) 08/22/2018 02/04/2023 Overview: Added automatically from request for surgery [id number] documented as of this encounter (statuses as of 07/08/2023) [facility] History of Past illness Narrative* Problem Noted [...] Overview: Added automatically from request for surgery [id number] Crohn's disease (regional enteritis) 08/22/2018 02/04/2023 Overview: Added automatically from request for surgery [id number] documented as of this encounter (statuses as of 07/24/2023) [facility] History of Past illness Narrative* Problem Noted [...] Overview: Added automatically from request for surgery [id number] Crohn's disease (regional enteritis) 08/22/2018 02/04/2023 Overview: Added automatically from request for surgery [id number] documented as of this encounter (statuses as of 07/25/2023) [facility] Miscellaneous Notes* Telephone Encounter - Araceli Choudhury MD - 04/30/2023 12:05 AM EDT [facility] transfer to [facility] 27 yo female with a PMH of crohn's disease, currently 13 weeks , has had 2 weeks of LLQ pain, seen at [facility] ER twice, recommended admission but patient 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 She has had worsening N/V, unable to hold down PO intake, now having more significant diarrhea. Alsoc/o palpitations. Labs unremarkable. Had US showing no complications. Requesting transfer to [facility] for GI and OB consultations and management. Accepted pending bed availability. Patient may need to board at [facility] awaiting bed - discussed to have GI consulted in that event. Araceli Choudhury MD 04/30/2023 12:05AM documented in this encounterHenry County Hospital08-07-2023 NoteHNO ID: [id number] Author: Maddie Ashraf RDMS, RVT Service: Radiology Author Type: Director Workers Compensation Type: Progress Notes Filed: 04/29/2023 7:13 PM [...] Not applicable SIGNED BY: Maddie Ashraf RDMS, RVT April 29, 2023 7:13 [facility] [id number] Evaluation + Plan noteExtracted from: Title:ED Note Author:Jess Gunn PA-C Date:04/27/23 1. Abdominal pain in female (R10.9: Unspecified abdominal pain) 2. (Z34.90: Encounter for supervision of normal , unspecified, unspecified trimester) 3. Nausea & vomiting (R11.2: Nausea with vomiting, unspecified) Orders: metoclopramide, 10 mg = 1 tab(s), Oral, q6hr, PRN Nausea/Vomiting, # 30 tab(s), Refills(s) 0, Pharmacy: [facility]/pharmacy #[id number], 167.6, cm, 04/26/23 22:31:00 EDT, [...] 87 kg, 2.01, m2 Saline Lock Insert [facility]08-05-2023 Hospital Discharge instructions Patient Education 04/27/2023 03:09:00 Second Trimester of , Dyth-ku-Gxhq Second Trimester of The second trimester of [...] Follow these instructions at home: Medicines Take ockc-khx-zobhnqe and prescription medicines only as told by [...] a counselor. Where to find more information [employer]: americanpregnancy.org [employer]: www.acog.org Office [...] provider. Document Revised: 02/15/2021 Document Reviewed: 12/22/2020 [employer]journal Patient Education 2022 [employer] 04/27/2023 03:09:00 Crohn's Disease Crohn's Disease Crohn's [...] who specializes in diseases of the digestive tract(diet tech). How is this treated? There is no [...] Follow these instructions at home: Medicines Take qgfm-tiz-kocovbl and prescription medicines only as told by [...] provider. Document Revised: 03/15/2022 Document Reviewed: 03/15/2022 Spotjournal Patient Education 2022 [employer]. 04/27/2023 03:09:00 Abdominal Pain, Adult, Rdvl-gx-Gkny Abdominal Pain, Adult Many things can cause belly (abdominal) pain. Most times, belly pain is not dangerous. Many cases of belly pain can be watched and treated at home. Sometimes, though, belly pain is serious. Your doctor will try to find the cause of your belly pain. Follow these instructions at home: Medicines Take ohcy-jiz-rgehddb and prescription medicines only as told by [...] your belly pain for any changes. Take zfth-cuk-diyuisd and prescription medicines only as told by [...] provider. Document Revised: 01/18/2020 Document Reviewed: 01/18/2020 [employer]journal Patient Education 2022 [employer]. Follow Up Care 04/26/2023 22:11:15 With:Follow up [facility] Address:Unknown When:04/30/2023 [facility]07-27-2023 Miscellaneous Notes* Telephone Encounter - Yfn Alex APRN.CNP - 04/18/2023 11:53 AM EDTSummary: Recent ER visit- care coordination I received a message from Fernanda Kramer DO, who is a resident in the ED. Please see message below from Fernanda regarding patient's case: Abhi Alamguer! I am one of the residents taking care of Rola here in the ED at [facility]. I apologize if you are off today, [...] 18, 2023 12:01 PM documented in this [facility] Evaluation + Plan note Extracted from: Title:ED Note Author:Lisandro Mishra, Carolyn Ramirez te:04/15/23 1. Abdominal pain (R10.9: Un specified [...] PT & PTT UA With Cult Reflex [facility]07-24-2023 Hospital Discharge instructions Patient Education 04/15/2023 01:12:27 [...] who specializes in diseases of the digestive tract(diet tech). How is this treated? There is no [...] Follow these instructions at home: Medicines Take njrg-gly-harbjbu and prescription medicines only as told by [...] provider. Document Revised: 03/15/2022 Document Reviewed: 03/15/2022 Spotjournal Patient Education 2022 [employer]. 04/15/2023 01:12:27 Abdominal Pain, Adult Abdominal Pain, [...] Follow these instructions at home: Medicines Take azbw-wxv-tubsdvu and prescription medicines only as told by [...] Watch your condition for any changes. Take tadi-ala-qjylyud and prescription medicines only as told by [...] provider. Document Revised: 10/28/2020 Document Reviewed: 01/18/2020 Spotjournal Patient Education 2022 [employer]. Follow Up Care 04/14/2023 23:41:14 With:Kale RENDON Address: [address] [place], [place] [id number] [facility] (1) When:04/18/2023 Comments:Make sure to follow-up with your GI as instructed. Return to the emergency room if your pain gets worse, vomiting, vaginal bleeding or any new symptoms. [facility]07-23-2023 History of Present illness Narrative* Courtney Swann RN - 04/14/2023 10:11 AM Yulissa: Abstract Rola Aguilar Age 27 Female ([place], [place]) Crohn's disease Referral 27 y/o female [...] importance of weight loss documented in this encounterHenry [facility]07-14-[facility]23 Miscellaneous Notes* Telephone Encounter - Sara Larry - 04/05/2023 12:20 PM EDT I left voice message and sent my-chart message for patient to call and schedule. Thanks Sara Houston * Telephone Encounter - Qing Ulrich RPh - 04/05/2023 9:09 AM EDT IBD PharmD Appt Called pt as no-show. No reply, left VM. Will send PSR team a message to help r/s and also [employer] message. documented in this [facility]Henry [facility]06-[facility] Hospital Discharge instructions Patient Education 03/10/2023 21:34:08 First Trimester of , Wuga-tg-Kprv First Trimester of The first trimester of [...] Follow these instructions at home: Medicines Take fpef-hya-bsftirl and prescription medicines only as told by [...] your visits. Where to find more information [employer]: americanpregnancy.org [employer]: www.acog.org Office [...] provider. Document Revised: 02/15/2021 Document Reviewed: 12/22/2020 Spotjournal Patient Education 2022 [employer]. 03/10/2023 21:34:08 Crohn's Disease Crohn's Disease Crohn's [...] who specializes in diseases of the digestive tract(diet tech). How is this treated? There is no [...] Follow these instructions at home: Medicines Take onjk-yej-pqxwrrb and prescription medicines only as told by [...] provider. Document Revised: 03/15/2022 Document Reviewed: 03/15/2022 Spotjournal Patient Education 2022 [employer]. 03/10/2023 21:34:08 Abdominal Pain, Adult, Kiic-pp-Rqmh Abdominal Pain, Adult Many things can cause belly (abdominal) pain. Most times, belly pain is not dangerous. Many cases of belly pain can be watched and treated at home. Sometimes, though, belly pain is serious. Your doctor will try to find the cause of your belly pain. Follow these instructions at home: Medicines Take kunm-jlp-ngxdoxz and prescription medicines only as told by [...] your belly pain for any changes. Take vqlq-awf-jumcqyo and prescription medicines only as told by [...] provider. Document Revised: 01/18/2020 Document Reviewed: 01/18/2020 Spotjournal Patient Education 2022 [employer]. Follow Up Care 03/10/2023 17:24:22 With:Anoop Lopez Address: [address] [place] [address] Business (1) When:03/13/2023 21:16:08 Comments:Follow-up with Dr. Lopez for further evaluation of your . With:Vanessa Carver Address: [address] [place] [address]- Business (1) When:03/13/2023 21:16:00 Comments:Follow-up with your primary care provider in 3 to 5 days. If symptoms worsen, do not improve, or new symptoms arise please report back to emergency department for further evaluation. [facility]06-18[facility]20[facility] Evaluation + Plan note Diagnostic Tests Pending * Urine Culture 03/10/23 [facility]06-14-2023 Miscellaneous Notes* Telephone Encounter - Ted Brito RN - 03/06/2023 11:34 AM EDT Pa submitted will follow up as needed, * Telephone Encounter - Corinne Mendoza - 03/06/2023 9:18 AM EDTSummary: Cortifoam 10% foam requires PA Received fax (scanned into [employer]) on 03/05/2023 informing of Cortifoam 10% foam requires PA. To complete PA, visit CMM and use NELSON: [id number] Corinne Mendoza documented in this encounterHenry [facility] Hospital06-13-2023 Miscellaneous Notes* Telephone Encounter - Ted Brito RN - 03/05/2023 11:23 AM EDT ----- Message from Rut Lagos MD sent at 02/04/2023 10:30 AM EDT ----- Planning to start this patient on IFX and Imuran combination treatment for crohn's disease documented in this encounterHenry [facility] Hospital05-15-2023 History of Present illness Narrative* Rut Lagos MD - 02/04/2023 8:30 AM EDT NAME: Rola Aguilar [facility] NO: [id number] REASON FOR VISIT Rola Aguilar is a [...] She was treated with PDN, ADA from 6351-2976, lost response due to development of AB, UST from 4286-2091 lost insurance and was not on medications. [...] one year-remission and then developed AB form 3158-1762 UST 8729-0335 Small molecules: No Current Medications Systemic steroids [...] She was treated with PDN, ADA from 2497-5192, lost response due to development of AB, UST from 0187-2850 lost insurance and was not on medications. [...] Overview Added automatically from request for surgery [id number] Relevant Orders CONSULT TO [facility]ULATORY CLINIC [...] 31, 2023 1:11 PM documented in this encounterHenry [facility]05-[facility]23 Hospital Discharge instructions Patient Education 01/25/2023 23:43:22 [...] who specializes in diseases of the digestive tract(diet tech). How is this treated? There is no [...] Follow these instructions at home: Medicines Take hgcv-led-ipwfbhj and prescription medicines only as told by [...] provider. Document Revised: 03/15/2022 Document Reviewed: 03/15/2022 Spotjournal Patient Education 2022 [employer]. Follow Up Care 01/25/2023 20:50:02 With:Jose Raul PHILLIPS Address: [address] [place] [address] Cindy, [facility] [place] [address] Business (1) When:01/28/2023 Comments:Call the [...] you develop any new or worsening symptoms. [facility]05-05-2023 Evaluation + Plan noteExtracted from: Title:ED Note Author:Alisha LEDESMA, Familia Singer Jason e:01/25/23 Abdominal pain [...] Date:02/21/2023 01:45:00 PM Scheduled Provider:Karlos RAWLS MD Location:[facility] Digestive Health Appointment Type:[facility] Follow Up [facility]04-23-2023 Hospital Discharge instructions Patient Education 01/13/2023 16:33:24 [...] Treatment for this condition includes: Antibiotic medicine. Caif-oes-porwpgi medicines to treat discomfort. Drinking enough water [...] Follow these instructions at home: Medicines Take fqxi-sgl-eydtnxt and prescription medicines only as told by [...] provider. Document Revised: 04/21/2021 Document Reviewed: 04/21/2021 Spotjournal Patient Education 2022 [employer]. 01/13/2023 16:33:24 Abdominal Pain, Adult Abdominal Pain, [...] Follow these instructions at home: Medicines Take uijw-sjk-agttcqc and prescription medicines only as told by [...] Watch your condition for any changes. Take waty-jer-cxjzpnw and prescription medicines only as told by [...] provider. Document Revised: 10/28/2020 Document Reviewed: 01/18/2020 Spotjournal Patient Education 2022 [employer]. Follow Up Care 01/13/2023 14:28:08 With:Karlos RAWLS Address: [address] [place] [address] Business (1) When:01/16/2023 16:20:32 Comments:Call the office of Dr. Rawls to see if he can see you sooner. Call your colorectal surgeon as well to follow-up with him. Return to the emergency room if your pain gets worse or any new symptoms. With:Jose Raul PHILLIPS Address: [address] [place] [address] Business (1) When:01/16/2023 16:20:25 [facility]04-23-2023 Evaluation + Plan noteExtracted from: Title:ED Note Author:Carolyn Mcmahon M.D. te:01/13/23 1. Abdominal pain (R10.9: Un specified abdominal pain) 2. Urinary tract infection (N39.0: Urinary tract infection, site not specified) Orders: cephalexin, 500 mg = 1 cap(s), Oral, q6hr, X 7 day(s), # 28 cap(s), Refills(s) 0, Pharmacy: [facility]/pharmacy #[id number], 168, cm, 01/13/23 14:44:00 EDT, [...] nausea/vomiting, # 20 tab(s), Refills(s) 0, Pharmacy: [facility]/pharmacy #[id number], 168, cm, 01/13/23 14:44:00 EDT, [...] Date:02/21/2023 01:45:00 PM Scheduled Provider:Karlos RAWLS MD Location:[facility] Digestive Health Appointment Type:[facility] Follow Up Diagnostic Tests Pending * Urine Culture 01/13/23 [facility]04-19-2023 Hospital Discharge instructions Patient Education 01/09/2023 16:01:41 Nausea and Vomiting, Adult, Sbnk-ol-Gdsx Nausea and Vomiting, Adult Nausea is feeling [...] fruit juice). ?Low-calorie sports drinks. Eat bland, kcel-kf-ylyliy foods in small amounts as you are able, such as: ?Bananas. ?Applesauce. ?Rice. ?Low-fat (lean) meats. ?[place]. ?Crackers. Avoid drinking fluids that have a lot of sugar or caffeine in them. This includes energy drinks, sports drinks, and soda. Avoid alcohol. Avoid spicy or fatty foods. General instructions Take frod-hnp-lnxeenr and prescription medicines only as told by your doctor. Drink enough fluid to keep your pee (urine) pale yellow. Wash your hands often with soap and water for at least 20 seconds. If you cannot use soap and water, use hand head of digital advertising & integration. Make sure that everyone in your home [...] your doctor about eating and drinking. Take cfrm-dqq-woauydy and prescription medicines only as told by your doctor. Contact your doctor if your symptoms get worse or you have new symptoms. Keep all follow-up visits. This information is not intended to replace advice given to you by your health care provider. Make sure you discuss any questions you have with your health care provider. Document Revised: 03/16/2022 Document Reviewed: 03/16/2022 Spotjournal Patient Education 2022 [employer]. 01/09/2023 16:01:41 Crohn's Disease Crohn's Disease Crohn's [...] who specializes in diseases of the digestive tract(diet tech). How is this treated? There is no [...] Follow these instructions at home: Medicines Take ynie-bka-cpnfmbx and prescription medicines only as told by [...] provider. Document Revised: 03/15/2022 Document Reviewed: 03/15/2022 Spotjournal Patient Education 2022 [employer]. 01/09/2023 16:01:41 Abdominal Pain, Adult, Zuow-xr-Xzem Abdominal Pain, Adult Many things can cause belly (abdominal) pain. Most times, belly pain is not dangerous. Many cases of belly pain can be watched and treated at home. Sometimes, though, belly pain is serious. Your doctor will try to find the cause of your belly pain. Follow these instructions at home: Medicines Take dtsx-xaa-qmmqqpx and prescription medicines only as told by [...] your belly pain for any changes. Take bdwc-ips-vungdfo and prescription medicines only as told by [...] provider. Document Revised: 01/18/2020 Document Reviewed: 01/18/2020 Spotjournal Patient Education 2022 [employer]. Follow Up Care 01/09/2023 12:41:52 With:Karlos RAWLS Address: [address] [place] [address] Business (1) When:01/12/2023 15:38:20 Comments:follow up with your Gi doctor for futher evaluation of your crohn's disease. With:Jose Raul PHILLIPS Address: [address] [place] [address] Business (1) When:01/12/2023 15:38:06 Comments:Follow-up with your primary care provider in 3 to 5 days. If symptoms worsen, do not improve, or new symptoms arise please report back to emergency department for further evaluation. [facility]04-19-2023 Evaluation + Plan noteExtracted from: Title:ED Note Author:Wil Chandler PA-C te:01/09/23 Abdominal pain (R10.9: Unspe cified abdominal pain) Crohn's disease (K50.90: Crohn's disease, unspecified, without complications) Nausea and vomiting (R11.2: Nausea with vomiting, unspecified) Orders: acetaminophen-oxycodone, 1 tab(s), Tab, Oral, Once, Stop date 01/09/23 15:06:00 EDT, STAT, Start date 01/09/23 15:06:00 EDT acetaminophen-oxycodone, 1 tab(s), Oral, q6hr for 2 day(s), 8 tab(s), Refill(s) 0, [facility]/pharmacy #[id number], 168, cm, 01/09/23 12:47:00 EDT, [...] day(s), # 40 cap(s), Refills(s) 0, Pharmacy: [facility]/pharmacy #[id number], 168, cm, 01/09/23 12:47:00 EDT, [...] Nausea/Vomiting, # 20 tab(s), Refills(s) 0, Pharmacy: [facility]/pharmacy #[id number], 168, cm, 01/09/23 12:47:00 EDT, Height/Length Dosing, 93.2, kg, 01/09/23 12:47:00 EDT, Weight Dosing predniSONE, 50 mg = 1 tab(s), Oral, Daily, X 7 day(s), # 7 tab(s), Refills(s) 0, Pharmacy: [facility]/pharmacy #[id number], 168, cm, 01/09/23 12:47:00 EDT, [...] Date:02/21/2023 01:45:00 PM Scheduled Provider:Karlos RAWLS MD Location:[facility] Digestive Health Appointment Type:[facility] Follow Up [facility]01[facility]07[facility]23 Hospital Discharge instructions Patient Education 09/29/2022 20:30:53 [...] the toilet. 4.Remove the clip or the bffu-vix-xkje fastener from the tail end of the bag. 5.Unroll the tail, then empty the stool into the toilet. 6.Clean the tail with toilet paper or a moist towelette. 7.Reroll the tail, and close it with the clip or the hjlg-krq-eewh fastener. 8.Wash your hands again. How to [...] may use the cool setting on a hairpiece stylist to do this. 5.Use a tracing pattern [...] with your hands, or blow with a hairpiece stylist for 5 10 seconds. 9.Remove the paper [...] wet, you can dry it with a hairpiece stylist on the cool setting. To prevent odor, [...] 09/11/2004 Document Revised: 12/30/2019 Document Reviewed: 03/05/2018 Spotjournal Patient Education 2020 [employer]. Follow Up Care 09/29/2022 19:01:28 With:Jose Raul PHILLIPS Address: [address] [place] [address]- Business (1) When:Within 3 Day(s) [facility]01-07-2023 Evaluation + Plan noteExtracted from: Title:ED Note Author:Alex Sanchez DO Date :09/29/22 Bleeding from colostomy stom a (K94.01: Colostomy hemorrhage) Orders: predniSONE, 40 mg = 2 tab(s), Oral, Daily, X 5 day(s), # 10 tab(s), Refills(s) 0, [facility]: [id number], 167, cm, 09/29/22 19:14:00 EST, Height/Length Dosing, 87, kg, 09/29/22 19:14:00 EST, Weight Dosing predniSONE, 40 mg = 2 tab(s), Tab, Oral, Once, Stop date 09/29/22 20:21:00 EST, STAT, Start date 09/29/22 20:21:00 EST, 09/29/22 20:21:00 EST Automated Diff Basic Metabolic Panel BB Draw & Hold CBC w/ Auto Diff eGFR Hepatic Function Panel Lipase Level PT & PTT UA With Cult Reflex [facility]09-08-2022 Hospital Discharge instructions Patient Education 05/31/2022 00:22:15 Abdominal Pain, Adult, Maki-et-Cdsq Abdominal Pain, Adult Many things can cause belly (abdominal) pain. Most times, belly pain is not dangerous. Many cases of belly pain can be watched and treated at home. Sometimes, though, belly pain is serious. Your doctor will try to find the cause of your belly pain. Follow these instructions at home: Medicines Take mkwg-bch-hpwujim and prescription medicines only as told by [...] your belly pain for any changes. Take befw-ist-ejogwqa and prescription medicines only as told by [...] 02/25/2009 Document Revised: 01/18/2020 Document Reviewed: 01/18/2020 Spotjournal Patient Education 2020 [employer]. Follow Up Care 05/30/2022 20:34:27 With:Jose Raul PHILLIPS Address: [address] [place] [address] Business (1) When:06/03/2022 Comments:Take the pain medication, nausea medication as prescribed as needed for pain. Please follow-up withyour primary care doctor in addition to colorectal surgery for further evaluation and management. Please return to the ED for any new or worsening symptoms. [facility]07[facility] Evaluation + Plan noteExtracted from: Title:ED Note [...] Acid Lipase Level UA With Cult Reflex [facility]06-08-2022 Hospital Discharge instructions Patient Education 02/27/2022 23:28:55 Constipation, Adult, Egmn-sl-Mbuw Constipation, Adult Constipation is when a person: [...] in fiber, or overly processed, such as: ?Welsh fries. ?Hamburgers. ?Cookies. ?Candy. ?Soda. Drink enough fluid to keep your pee (urine) clear or pale yellow. General instructions Exercise regularly or as told by your doctor. Go to the restroom when you feel like you need to poop. Do not hold it in. Take ndvu-gty-qqujwtu and prescription medicines only as told by [...] 02/25/2009 Document Revised: 08/22/2018 Document Reviewed: 02/27/2017 Spotjournal Patient Education 2020 [employer] Follow Up Care 02/27/2022 19:23:49 With:Jose Raul EMILEE Address: [address] [place], [place] [phone] Business (1) When:03/02/2022 [facility]03-28-2022 Evaluation + Plan noteExtracted from: Title:ED Note Author:Lani MARTINEZ IIINellie Date:12/18/21 1. Anxiety (F41.9: Anxiety d isorder, unspecified) Orders: hydrOXYzine, 1-2 tab(s), Oral, QID, PRN as needed for anxiety, # 20 tab(s), Refills(s) 0, Pharmacy: [facility] [place] [address], 168, cm, 12/18/21 3:53:00 EDT, Height/Length Dosing, [...] Hr. Troponin 6 Hr. Troponin 9 Hr. [facility]03-28-2022 Hospital Discharge instructions Patient Education 12/18/2021 06:34:31 [...] therapies. Follow these instructions at home: Take njdw-vpb-flfwcdu and prescription medicines only as told by [...] 01/04/2014 Document Revised: 08/22/2018 Document Reviewed: 07/30/2017 Spotjournal Patient Education [employer]. Follow Up Care 12/18/2021 03:43:09 With:[facility] Address:Unknown When:12/21/2021 05:24:44 Comments:Make sure to follow-up with [facility]'s counseling as instructed. Return to the emergency room if you develop thoughts of hurting yourself or any new symptoms. With:Jose Raul PHILLIPS Address: [address] [place] [address] [facility] (1) When:Within 3 Day(s) [facility]11-18-2021 History of Present illness Narrative* Jazmin Godoy RN - 08/10/2021 8:45 AM EST Colostomy changed and patient instructed on procedure with verbalized understanding. [facility] Phone: 1(436) 848-413412-20-2018 History of Past illness Narrative* Problem Noted Date Resolved Date Hypomagnesemia 09/11/2018 09/12/2018 Last Assessment & Plan: Assessment: PLAN: Replete if <1.7 Hyponatremia 09/11/2018 09/12/2018 Last Assessment & Plan: Assessment: PLAN: Replete if <136 documented as of this encounter (statuses as of 01/18/2023) [facility] of Past illness Narrative* Problem Noted Date Resolved Date Hypomagnesemia 09/11/2018 09/12/2018 Last Assessment & Plan: Assessment: PLAN: Replete if <1.7 Hyponatremia 09/11/2018 09/12/2018 Last Assessment & Plan: Assessment: PLAN: Replete if <136 Malnutrition of mild degree 09/11/2018/0 09/2022 Abdominal pain 09/10/2018 01/21/2023 Last Assessment [...] Overview: Added automatically from request for surgery [id number] Crohn's disease (regional enteritis) 08/22/2018 02/04/2023 Overview: Added automatically from request for surgery [id number] documented as of this encounter (statuses as of 02/04/2023) [facility] of Past illness Narrative* Problem Noted Date Resolved Date Hypomagnesemia 09/11/2018 09/12/2018 Last Assessment & Plan: Assessment: PLAN: Replete if <1.7 Hyponatremia 09/11/2018 09/12/2018 Last Assessment & Plan: Assessment: PLAN: Replete if <136 Malnutrition of mild degree 09/11/201809/2022 Abdominal pain 09/10/2018 01/21/2023 Last Assessment & [...] Overview: Added automatically from request for surgery [id number] Crohn's disease (regional enteritis) 08/22/2018 02/04/2023 Overview: Added automatically from request for surgery [id number] documented as of this encounter (statuses as of 03/06/2023) [facility] of Past illness Narrative* Problem Noted [...] Overview: Added automatically from request for surgery [id number] Crohn's disease (regional enteritis) 08/22/2018 02/04/2023 Overview: Added automatically from request for surgery [id number] documented as of this encounter (statuses as of 03/07/2023) [facility] Narrative* Problem Noted [...] Overview: Added automatically from request for surgery [id number] Crohn's disease (regional enteritis) 08/22/2018 02/04/2023 Overview: Added automatically from request for surgery [id number] documented as of this encounter (statuses as of 04/05/2023) [facility] of [facility] illness Narrative* Problem Noted [...] Overview: Added automatically from request for surgery [id number] Crohn's disease (regional enteritis) 08/22/2018 02/04/2023 Overview: Added automatically from request for surgery [id number] documented as of this encounter (statuses as of 04/14/2023) [facility] illness Narrative* Problem Noted [...] Overview: Added automatically from request for surgery [id number] Crohn's disease (regional enteritis) 08/22/2018 02/04/2023 Overview: Added automatically from request for surgery [id number] documented as of this encounter (statuses as of 04/18/2023) [facility] illness Narrative* Problem Noted [...] Overview: Added automatically from request for surgery [id number] Crohn's disease (regional enteritis) 08/22/2018 02/04/2023 Overview: Added automatically from request for surgery [id number] documented as of this encounter (statuses as of 04/30/2023) [facility] noteExtracted from: Title:ED Note Author:Jess [...] Diagnostic Tests Pending * [facility] 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, unspecified History of ileostomy Ileostomy status History of Crohn's disease Personal history of unspecified digestive disease documented in this encounter [employer] Phone: evaluation note* Diagnosis Gastroenteritis- Primary Other and unspecified noninfectious gastroenteritis and colitis documented in this encounter PAUL VERDUZ[facility] [place] Phone: evalxiashd note* Diagnosis Diarrhea, unspecified type- Primary documented in this encounter [facility] note* Diagnosis 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)- Primary History of endoscopy Other postprocedural status Imaging of gastrointestinal tract abnormal Nonspecific (abnormal) findings on radiological and other examination of gastrointestinal tract Crohn's colitis, unspecified complication (HCC) documented in this encounter [facility] note* Diagnosis care, subsequent , second trimester- [...] , antepartum (HCC) [facility] Diagnosis Encounter for anatomic survey- Primary care, subsequent , second trimester Obesity affecting in second trimester, unspecified obesity type 22 weeks gestation of state, incidental documented in this encounter [facility] note* Diagnosis care, subsequent , second trimester- Primary 26 weeks gestation of state, incidental Screening for diabetes mellitus General counseling and advice for contraceptive management Other general counseling and advice for contraceptive management Crohn's disease with complication, unspecified gastrointestinal tract location (HCC)- Primary documented in this encounter [facility] note* Diagnosis care, subsequent , third trimester- [...] for contraceptive management documented in this encounter [facility] note* Diagnosis Maternal Crohn's disease affecting in third trimester (HCC)- Primary Crohn's disease of colon with complication (HCC) [facility] Diagnosis At risk for depressed [...] location (HCC)- [facility] Diagnosis Crohn's disease of colon with [...] location (HCC)- Primary [facility] Diagnosis Crohn's disease of colon with [...] tract location (HCC) [facility] Diagnosis Crohn's disease of colon with [...] tract location (HCC) documented in this encounter [facility] note* Diagnosis Crohn's disease of colon [...] tract location (HCC) documented in this encounter [facility] noteNo assessment information [facility] Work Phone: Evaluation note* Diagnosis Crohn's disease of colon with [...] status Generalized abdominal pain Abdominal pain, generalized Crohn disease of colon and rectum (HCC)- Primary Anal fistula Perianal Crohn's disease, with fistula (HCC) Generalized abdominal pain Abdominal pain, generalized Colonic stricture (HCC) Unspecified intestinal obstruction Crohn's disease of perianal region, with fistula (HCC) [facility] Diagnosis Crohn's disease of colon with [...] abdominal pain Abdominal pain, unspecified site state (HCC) Routine follow-up Ileostomy in place (HCC) Ileostomy status Generalized abdominal pain Abdominal pain, generalized Pre-op evaluation- Primary Preoperative examination, unspecified Anemia, unspecified type Generalized seizures (HCC) Other convulsions Ileostomy in place (HCC) Ileostomy status Perineal abscess Cellulitis and abscess of trunk Anxiety and depression Dysthymic disorder Crohn's disease of perianal region, with fistula (HCC) * Assessment & Plan Note - Michael Cheema APRN.CNP - 12/24/2024 8:27 AM EDT Associated Problem(s): Anxiety and depression Assessment: Controlled with buspirone * Assessment & Plan Note - Michael Cheema APRN.CNP - 12/24/2024 8:27 AM EDT Associated Problem(s): Perineal abscess Assessment: s/p seton placement 12/18/2024 Oxycodone as needed for pain Upcoming procedure * Assessment & Plan Note - Michael Cheema APRN.CNP - 12/24/2024 8:25 AM EDT Associated Problem(s): Ileostomy in place (HCC) Assessment: Ileostomy in place Following with GI Upcoming procedure * Assessment & Plan Note - Michael Cheema APRN.CNP - 12/24/2024 8:01 AM EDT Associated Problem(s): Generalized seizures (HCC) Assessment: New onset in the beginning of November She reports having 5 grand mal seizures Magnesium was found to be very low- replaced in hospital and started on oral as tolerated Was taken to ED intubated for airway protection Started on Keppra 500 mg BID No seizures since starting medication Saw Neurology Magdalene Boyle on 12/15- Aware she is having procedure on 01/08/2025 Per her Ov Note: MRI revealed mild changes thought to be related to seizure activity with recommendations to update brain MRI with and without contrast in 2-4 weeks. She had an LP that was negative for infectious cause and NMDA receptor antibodies negative. Continuous video EEG did not reveal any seizure activity. She was started on Keppra 500mg PO BID. * Assessment & Plan Note - Michael Cheema APRN.CNP - 12/24/2024 7:54 AM EDT Associated Problem(s): Anemia Assessment: Chronic d/t Chron's CBC with iron studies ordered today Has had blood transfusion in the past ~ 5 years ago Hemoglobin (g/dL) Date Value 12/18/2024 8.6 12/17/2024 10.4 01/19/2024 10.2 01/24/2021 12.9 01/21/2021 12.1 12/22/2020 12.3 documented in this encounter [facility] note* Diagnosis Crohn's disease of perianal region with fistula (HCC)- Primary documented in this encounter [facility] note* Diagnosis Crohn's disease of colon [...] abdominal pain Abdominal pain, unspecified site state (HCC) Routine follow-up Ileostomy in place (HCC) Ileostomy status Generalized abdominal pain Abdominal pain, generalized Pre-op evaluation- Primary Preoperative examination, unspecified Anemia, unspecified type Generalized seizures (HCC) Other convulsions Ileostomy in place (HCC) Ileostomy status Perineal abscess Cellulitis and abscess of trunk Anxiety and depression Dysthymic disorder Crohn's disease of perianal region with fistula (HCC)- Primary Crohn's disease of perianal region, with fistula (HCC) documented in this encounter [facility] note* Diagnosis Crohn's disease of colon [...] abdominal pain Abdominal pain, unspecified site state (HCC) Routine follow-up Ileostomy in place (HCC) Ileostomy status Generalized abdominal pain Abdominal pain, generalized Pre-op evaluation- Primary Preoperative examination, unspecified Anemia, unspecified type Generalized seizures (HCC) Other convulsions Ileostomy in place (HCC) Ileostomy status Perineal abscess Cellulitis and abscess of trunk Anxiety and depression Dysthymic disorder Anemia, unspecified type- Primary Crohn's disease of perianal region, with fistula (HCC) [facility] Narrative No data available for this section [facility]* Attachments The following attachments cannot be sent through Care Everywhere. * Ostomy Care (Honduran) [facility] Work Phone: Hospital Discharge instructions* Attachments The following attachments cannot be sent through Care Everywhere. * Gastroenteritis ([place]onduran) [facility] Hospital Discharge instructions No data available for this section [facility] Progress note No data available for this section [facility] for referral (narrative)* Outpatient Procedure (Routine) - Pending Review Specialty Diagnoses / Procedures Referred By Contac t Referred To Contact [facility] Diagnoses Diarrhea, unspecified type Procedures ILEOSCOPY ENTEROSC >2ND PRTN W/ILEUM W/WO COLLJ SPEC SPX Zhane Quinones MD [address] [place] [address] [address] Referral ID Status Reason Start Date Expiration Date Visits Requested Visits Authorized [id number] Pending Review Auto-Generat ed Referral 01/18/2023 01/19/2024 [address] [facility] for referral (narrative)* Diagnostic Procedure Only (Routine) - Authorized Specialty Diagnoses / Procedures Referred By Contac t Referred To Contact [facility] Diagnoses 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) Procedures OBSTETRIC ULTRASOUND WHI US PREG UTERUS AFTER 1ST TRIMEST [address] [place] [address] [place] [address] [facility] [address] [place] [address] Referral ID Status Reason Start Date Expiration Date Visits Requested Visits Authorized [id number] Authorized Auto-Generat ed Referral 3 09/04/2024 1 1 [facility] Summary Purpose Family History No Family [...] History Records FoundNo Family History Records FoundNo Fa raad History Records FoundNo Family History Records FoundNo Family History Records FoundNo Family History Records FoundNo Family History Records FoundNo Family History Records FoundNo Family History Records FoundNo Family History Records FoundNo Family History Records FoundNo Family History RecordsFoundNo Family History Records FoundNo Family History Records [...] FoundNo Family History Records Found Advance Directives Date Activated Date Inactivated Comments 01/18/2024 5:38 [...] Documents on File Type Date Recorded 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 Director Of Advertising Sales Expl anation ACP-Advance Directive ACP-Power of Metallurgy Laboratory Technician Latest Code Status on File Code Status Date Activated Date Inactivated Comments Full Code 03/14/2016 2:42 AM 03/15/2016 10:29 AM Documents on File Type Date Recorded Patient Director Of Advertising Sales Expl anation Advance Directives and Living Will Power of Metallurgy Laboratory Technician Latest Code Status on File Code Status [...] Comments Full Code Order Discussed With: Patient Advance Directive Response Recorded Date/ Time Advance Directives No December 23 3:08pm Date Activated Date Inactivated Comments 03/14/2016 2:42 AM 03/15/2016 10:29 AM Discharge Instructions * Attachments The following attachments cannot be sent through Care Everywhere. * Abdominal Pain (Honduran) * Crohn's Disease (Honduran) documented in this encounter* Attachments The following attachments cannot be sent through Care Everywhere. * Ulcerative Colitis (Honduran) * Abdominal Pain (Honduran) documented in this encounter Assessments Diagnosis Acute Crohn's disease without complication (HCC) Generalized abdominal pain Abdominal pain, generalized Diagnosis Abdominal pain, unspecified abdominal location Exacerbation of ulcerative colitis with rectal bleeding (HCC) Reason for Referral Specialty Diagnoses / Procedures Referred By Sandra jaimes Referred To Contact Diagnoses care, subsequent , second trimester Crohn's disease of large intestine without complication (HCC) Procedures CONSULT TO MATERNAL MEDI OFFICE/OUTPATIENT [facility] 60-[place] [address] [place] [address] Referral ID Status Reason Start Date Expiration Date Visits Requested Visits Authorized [id number] Authorized PCP Requested Referral Auto-Generate d Referral 3 07/03/2024 1 1 Specialty Diagnoses / Procedures Referred By Contac t Referred To Contact [facility] Diagnoses care, subsequent , second trimester Procedures OBSTETRIC ULTRASOUND WHI US PREG UTERUS AFTER 1ST [place] [address] [place] [address] [facility] [address] [place] [address] Referral ID Status Reason Start Date Expiration Date Visits Requested Visits Authorized [id number] Authorized Auto-Generat ed Referral 3 07/03/2024 1 1 Specialty Diagnoses / Procedures Referred By Contac t Referred To Contact Diagnoses 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) Procedures CONSULT TO [facility]/OUTPATIENT [facility] 60-74 MINUTES Rut Lagos MD [address] [place] [address] Lou Colvin, PhD [address] [place] [address] Referral ID Status Reason Start Date Expiration Date Visits Requested Visits Authorized [id number] Authorized PCP Requested Referral 02/04/2023 02/04/2024 1 1 Specialty Diagnoses / Procedures Referred By Contac t Referred To Contact Nutrition Diagnoses 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) Procedures CONSULT TO NUTRITION THERAPY MEDICAL NUTRITION ASSMT&IVNTJ INDIV EACH 15 SC MEDICAL NUTRITION ASSMT&IVNTJ INDIV EACH 15 SC MEDICAL NUTRITION ASSMT&IVNTJ INDIV EACH 15 SC MEDICAL NUTRITION ASSMT&IVNTJ INDIV EACH 15 SC Rut Lagos MD [address] [place] [address] Referral ID Status Reason Start Date Expiration Date Visits Requested Visits Authorized [id number] Authorized PCP Requested Referral 02/04/2023 02/04/2024 1 1 Health Concerns Problem Noted Date Diagnosed Date [facility] Education - [place] 07/04/2023 [place] - [place] 07/04/2023 Problem Noted Date Diagnosed Date [facility] Education - [place] 07/04/2023 [place] - [place] 07/04/2023 Problem Noted Date Diagnosed Date [facility] Education - [place] 07/04/2023 [place] - [place] 07/04/2023 Problem Noted Date Diagnosed Date [facility] Education - [place] 07/04/2023 [place] - [place] 07/04/2023 Problem Noted Date Diagnosed Date [facility] Education - [place] 07/04/2023 [place] - [place] 07/04/2023 Problem Noted Date Diagnosed Date [facility] Education - [facility] 07/04/2023 [place] - [place] 07/04/2023 Problem Noted Date Diagnosed Date [facility] Education - [place] 07/04/2023 [place] - [place] 07/04/2023 Problem Noted Date Diagnosed Date [facility] Education - [place] 07/04/2023 [place] - [place] 07/04/2023 Problem Noted Date Diagnosed Date [facility] Education - [place] 07/04/2023 [place] - [place] 07/04/2023 Problem Noted Date Diagnosed Date [facility] Education - [place] 07/04/2023 [place] - [place] 07/04/2023 Active Problems Noted Date Diagnosed Date [place] Homeopathic Doctor 10/27/2023 Additional Source Comments INFORMATION SOURCE (unrecogn ized section and content) DATE CREATED AUTHOR 07/23/[address] [facility] DATE CREATED AUTHOR AUTHOR'S ORGANIZ ATION 10/31/2021 [employer] DATE CREATED AUTHOR AUTHOR'S ORGANIZ ATION 05/07/2023 [facility] DATE CREATED AUTHOR AUTHOR'S ORGANIZ ATION 03/05/2024 [employer] [facility] DATE CREATED AUTHOR AUTHOR'S ORGANIZ ATION 03/08/2024 [employer] [facility] DATE CREATED AUTHOR AUTHOR'S ORGANIZ ATION 03/13/2024 [employer] [facility] DATE CREATED AUTHOR AUTHOR'S ORGANIZ ATION 04/12/2024 [facility] DATE CREATED AUTHOR AUTHOR'S ORGANIZ ATION 07/02/2024 [facility] DATE CREATED AUTHOR AUTHOR'S ORGANIZ ATION 07/15/2024 [facility] DATE CREATED AUTHOR AUTHOR'S ORGANIZ ATION 07/19/2024 [facility] DATE CREATED AUTHOR AUTHOR'S ORGANIZ ATION 10/07/2024 [facility] DATE CREATED AUTHOR AUTHOR'S ORGANIZ ATION 11/16/2024 [facility] DATE CREATED AUTHOR AUTHOR'S ORGANIZ ATION 11/23/2024 [facility] DATE CREATED AUTHOR AUTHOR'S ORGANIZ ATION 11/24/2024 [facility] DATE CREATED AUTHOR AUTHOR'S ORGANIZ ATION 11/24/2024 [facility] DATE CREATED AUTHOR AUTHOR'S ORGANIZ ATION 11/25/2024 [facility] DATE CREATED AUTHOR AUTHOR'S ORGANIZ ATION 11/26/2024 [facility] DATE CREATED AUTHOR AUTHOR'S ORGANIZ ATION 11/28/2024 [facility] DATE CREATED AUTHOR AUTHOR'S ORGANIZ ATION 11/29/2024 [facility] DATE CREATED AUTHOR AUTHOR'S ORGANIZ ATION 11/30/2024 [facility] DATE CREATED AUTHOR AUTHOR'S ORGANIZ ATION 12/03/2024 [facility] DATE CREATED AUTHOR AUTHOR'S ORGANIZ ATION 12/10/2024 [facility] DATE CREATED AUTHOR AUTHOR'S ORGANIZ ATION 12/12/2024 [facility] DATE CREATED AUTHOR AUTHOR'S ORGANIZ ATION 12/13/2024 [facility] DATE CREATED AUTHOR AUTHOR'S ORGANIZ ATION 12/14/2024 [facility] DATE CREATED AUTHOR AUTHOR'S ORGANIZ ATION 12/16/2024 [facility] DATE CREATED AUTHOR AUTHOR'S ORGANIZ ATION 12/17/2024 [facility] DATE CREATED AUTHOR AUTHOR'S ORGANIZ ATION 12/18/2024 [facility] DATE CREATED AUTHOR AUTHOR'S ORGANIZ ATION 12/19/2024 [facility] DATE CREATED AUTHOR AUTHOR'S ORGANIZ ATION 12/22/2024 [facility] DATE CREATED AUTHOR AUTHOR'S ORGANIZ ATION 12/22/2024 [facility] DATE CREATED AUTHOR AUTHOR'S ORGANIZ ATION 12/26/2024 [facility] DATE CREATED AUTHOR AUTHOR'S ORGANIZ ATION 12/27/2024 [facility] DATE CREATED AUTHOR AUTHOR'S ORGANIZ ATION 12/27/2024 [facility] DATE CREATED AUTHOR AUTHOR'S ORGANIZ ATION 12/28/2024 Shellie reardon Reason for Visit (unrecogniz ed section and content) Reason Comments Abdominal Pain Pt has hx of chrons, woke up this morning at 0400 with severe abdominal pain, nausea and vomiting. Reason Comments Rectal Bleeding has Chrons disease s [email or web address]. Noticed bright red blood approximately 3 hours [...] Comments Appointment Reason Comments Appointment Patient Update Starting Gate Driver - Other Reason Onset Date Comments 04/30/2023 [...] US Specialty Diagnoses / Procedures Referred By Sandra t Referred To Contact [facility] Diagnoses care, subsequent , second trimester Procedures OBSTETRIC ULTRASOUND WHI US PREG UTERUS AFTER 1ST [place] [address] [place] [address] [facility] [address] [place] [address] Referral ID Status Reason Start Date Expiration Date V isits Requested Visits Authorized [id number] Closed Auto-Generate d Referral 07/04/2023 07/03/2024 1 1 Reason Comments Refill Request Reason Comments Care Reason Comments Starting Gate Driver - Other PRAF Reason Comments cramping Bleeding With Reason Comments Care Specialty Diagnoses / Procedures Referred By Contac t Referred To Contact [facility] Diagnoses Crohn's disease of colon with complication (HCC) Procedures OBSTETRIC ULTRASOUND WHI US PREG UTERUS AFTER 1ST [place] [address] [place] [address] [facility] [address] [place] [address] Referral ID Status Reason Start Date Expiration Date V isits Requested Visits Authorized [id number] Closed Auto-Generate d Referral 10/03/2023 10/02/2024 1 1 Reason Comments Early Reason Comments Starting Gate Driver - Other Reason Onset Date Comments Appointment 01/20/2024 Reason Comments Follow Up Hospital discharge f /u Reason Onset Date Comments SPP Inflammatory Conditions - Treatment Referral 02/26/2024 [employer] Insurance Authorization 02/26/2024 PA submi tted Reason Comments Orders Entyvio Starting Gate Driver - Other Specialty Diagnoses / Procedures Referred By Contac t Referred To Contact Diagnoses Crohn's disease of colon with complication (HCC) 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) Procedures INJECTION, [place] [address] [place] [address] [facility] [address] [place] [address] Referral ID Status Reason Start Date Expiration Date V isits Requested Visits Authorized [id number] Authorized 02/25/2024 05/29/2024 3 3 Reason Comments [...] Reason Comments Follow Up Cele anal abscess Reason Comments Crohns Reason Comments ED Follow-up Patient here to disc uss stoma prolapse, anal fistula with drainage. Reason Comments Anesthesia Consult Reason Comments Abdominal Pain cele anal pain Pt has hx Crohn's, i leostomy, cele rectal fistula. Pt arrives due to abd pain and cele rectal pain. Reason Comments Results Scheduled Active and Recently Administ ered Medications [...] hour of each other unless specifically ordered. 162 (Given - Provid er: Kaylyn Sandhu RN) ondansetron (ZOFRAN) injection 4 mg (COMPLETED) 4 mg, IntraVENous, ONCE, 1 dose, On Sat12/24/22 at 1530 162 (Given - Provid er: Kaylyn Sandhu RN) PRN Medication Order 12/22/2022 12/23/2022 12/24/2022 iopamidol (ISOVUE-370) 76 % injection 75 mL (COMPLETED) 75 mL, IntraVENous, IMG ONCE PRN, 1 dose, Starting on Sat12/24/22 at 1645, Until Sat12/24/22 at 1727, Other 1727 (Given - Provid er: Keysha Anthony) Scheduled Medication Order 12/23/2024 12/24/2024 12/25/2024 morphine sulfate (PF) injection 4 mg (COMPLETED) 4 mg, IntraVENous, ONCE, 1 dose, On Sat12/25/24 at 2030, If oral and IV narcotics ordered, use oral first and only use IV if oral is ineffective or cannot take oral. Do Not give oral and IV within 1 hour of each other unless specifically ordered. 2024 (Given - Provid er: Italia Mendoza RN) oxyCODONE-acetaminophen (PERCOCET) tablet 5-325 mg (2 tablet STARTER PACK) This order is for a take home starter pack of medication. Please document Not Given with a reason of other on the NOV along with a comment of sent home with patient. Maximum dose of acetaminophen is 4000 mg from all sources in 24 hours. 2034 (Furnished to [facility] - Provider: Italia Mendoza RN - Comment: sent with patient) Care Teams (unrecognized sec tion and content) Dope Maintenance Worker Relationship Specialty Start Date End Date Jose Raul Phillips, [place] [address] [place] [address] [place] [address] PCP - General 09/10/16 Dope Maintenance Worker Relationship Specialty Start Date End Date Kale Rendon MD PCP - General Family Medicine 01/15/17 Karlos Rawls MD Gastroenterology 01/15/17 Dope Maintenance Worker Relationship Specialty Start Date End Date Kale Rendon MD PCP - General Family Medicine 01/15/17 Karlos Rawls MD Gastroenterology 01/15/17 Dope Maintenance Worker Relationship Specialty Start Date End Date Kale Rendon MD PCP - General Family Medicine 01/15/17 Karlos Rawls MD Gastroenterology 01/15/17 Dope Maintenance Worker Relationship Specialty Start Date End Date Kale Rendon MD PCP - General Family Medicine 01/15/17 Karlos Rawls MD Gastroenterology 01/15/17 Dope Maintenance Worker Relationship Specialty Start Date End Date Kale Rendon MD PCP - General Family Medicine 01/15/17 Karlos Rawls MD Gastroenterology 01/15/17 Dope Maintenance Worker Relationship Specialty Start Date End Date Kale Rendon MD PCP - General Family Medicine 01/15/17 Karlos Rawls MD Gastroenterology 01/15/17 Dope Maintenance Worker Relationship Specialty Start Date End Date Kale Rendon MD PCP - General Family Medicine 01/15/17 Karlos Rawls MD Gastroenterology 01/15/17 Dope Maintenance Worker Relationship Specialty Start Date End Date Kale Rendon MD PCP - General Family Medicine 01/15/17 Karlos Rawls MD Gastroenterology 01/15/17 Dope Maintenance Worker Relationship Specialty Start Date End Date Kale Rendon MD PCP - General Family Medicine 01/15/17 Karlos Rawls MD Gastroenterology 01/15/17 Dope Maintenance Worker Relationship Specialty Start Date End Date Kale Rendon MD PCP - General Family Medicine 01/15/17 Karlos Rawls MD Gastroenterology 01/15/17 Dope Maintenance Worker Relationship Specialty Start Date End Date Kale Rendon MD PCP - General Family Medicine 01/15/17 Karlos Rawls MD Gastroenterology 01/15/17 Dope Maintenance Worker Relationship Specialty Start Date End Date Kale Rendon MD PCP - General Family Medicine 01/15/17 Karlos Rawls MD Gastroenterology 01/15/17 Dope Maintenance Worker Relationship Specialty Start Date End Date Kale Rendon MD PCP - General Family Medicine 01/15/17 Karlos Rawls MD Gastroenterology 01/15/17 Dope Maintenance Worker Relationship Specialty Start Date End Date Kale Rendon MD PCP - General Family Medicine 01/15/17 Karlos Rawls MD Gastroenterology 01/15/17 Dope Maintenance Worker Relationship Specialty Start Date End Date Kale Rendon MD PCP - General Family Medicine 01/15/17 Karlos Rawls MD Gastroenterology 01/15/17 Dope Maintenance Worker Relationship Specialty Start Date End Date Kale Rendon MD PCP - General Family Medicine 01/15/17 Karlos Rawls MD Gastroenterology 01/15/17 Dope Maintenance Worker Relationship Specialty Start Date End Date Kale Rendon MD PCP - General Family Medicine 01/15/17 Karlos Rawls MD Gastroenterology 01/15/17 Dope Maintenance Worker Relationship Specialty Start Date End Date Kale Rendon MD PCP - General Family Medicine 01/15/17 Karlos Rawls MD Gastroenterology 01/15/17 Dope Maintenance Worker Relationship Specialty Start Date End Date Kale Rendon MD PCP - General Family Medicine 01/15/17 Karlos Rawls MD Gastroenterology 01/15/17 Dope Maintenance Worker Relationship Specialty Start Date End Date Kale Rendon MD PCP - General Family Medicine 01/15/17 Karlos Rawls MD Gastroenterology 01/15/17 Dope Maintenance Worker Relationship Specialty Start Date End Date Kale Rendon MD PCP - General Family Medicine 01/15/17 Karlos Rawls MD Gastroenterology 01/15/17 Dope Maintenance Worker Relationship Specialty Start Date End Date Kale Rendon MD PCP - General Family Medicine 01/15/17 Karlos Rawls MD Gastroenterology 01/15/17 Dope Maintenance Worker Relationship Specialty Start Date End Date Kale Rendon MD PCP - General Family Medicine 01/15/17 Karlos Rawls MD Gastroenterology 01/15/17 Dope Maintenance Worker Relationship Specialty Start Date End Date Kale Rendon MD PCP - General Family Medicine 01/15/17 Karlos Rawls MD Gastroenterology 01/15/17 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 Maintenance Worker Relationship Specialty Start Date End Date Kale Rendon MD PCP - General Family Medicine 01/15/17 Karlos Rawls MD Gastroenterology 01/15/17 Zaira Campbell, [facility] 04/21/24 Dope Maintenance Worker Relationship Specialty Start Date End Date Kale Rendon MD PCP - General Family Medicine 01/15/17 Karlos Rawls MD Gastroenterology 01/15/17 Zaira Campbell, [facility] 04/21/24 Dope Maintenance Worker Relationship Specialty Start Date End Date Kale Rendon MD PCP - General Family Medicine 01/15/17 Karlos Rawls MD Gastroenterology 01/15/17 Zaira Campbell, [facility] 04/21/24 Dope Maintenance Worker Relationship Specialty Start Date End Date Kale Rendon MD PCP - General Family Medicine 01/15/17 Karlos Rawls MD [facility]astroenterology [facility]15[facility] Dope Maintenance Worker Relationship Specialty Start Date End Date Kale Rendon MD PCP - General Family Medicine 01/15/17 Karlos Rawls MD Gastroenterology 01/15/[facility] Dope Maintenance Worker Relationship Specialty Start Date End Date Kale Rendon MD PCP - General Family Medicine 01/15/17 Karlos Rawls MD Gastroenterology 01/15/[facility] Dope Maintenance Worker Relationship Specialty Start Date End Date Kale Rendon MD PCP - General Family Medicine 01/15/17 Karlos Rawls MD Gastroenterology 01/15/[facility] Team Status: Active Member Role Status Dates Chester Rendon MD Primary Care Provider Active Start: October 25, 2024 Anshul Tabor DO Attending Provider Active Sta rt: October 25, 2024 Team Status: Inactive Member Role Status Dates Ted Petersen DO Attending Provider Active Sta rt: November 23, 2024 End: November 23, 2024 Dope Maintenance Worker Relationship Specialty Start Date End Date Kale Rendon MD PCP - General Family Medicine 01/15/17 Karlos Rawls MD Gastroenterology 01/15/17 Dope Maintenance Worker Relationship Specialty Start Date End Date Kale Rendon MD PCP - General Family Medicine 01/15/17 Karlos Rawls MD Gastroenterology 01/15/17 Dope Maintenance Worker Relationship Specialty Start Date End Date Kale Rendon MD PCP - General Family Medicine 01/15/17 Karlos Rawls MD Gastroenterology 01/15/17 Dope Maintenance Worker Relationship Specialty Start Date End Date Karlos Rawls MD Gastroenterology 01/15/17 Dope Maintenance Worker Relationship Specialty Start Date End Date Karlos Rawls MD Gastroenterology 01/15/17 Dope Maintenance Worker Relationship Specialty Start Date End Date Karlos Rawls MD Gastroenterology 01/15/17 Ordered Prescriptions (unrec ognized section and content) [...] or prosecute any alcohol or drug abuse patient.[facility] HospitalIn the event this information is protected by the Federal Confidentiality of Alcohol and Drug Abuse Patient Records regulations: The Federal rules restrict any use of the information to criminally investigate or prosecute any alcohol or drug abuse patient.[facility] HospitalIn the event this information is protected by the Federal Confidentiality of Alcohol and Drug Abuse Patient Records regulations: The Federal rules restrict any use of the information to criminally investigate or prosecute any alcohol or drug abuse patient.[facility] HospitalIn the event this information is protected by the Federal Confidentiality of Alcohol and Drug Abuse Patient Records regulations: The Federal rules restrict any use of the information to criminally investigate or prosecute any alcohol or drug abuse patient.[facility] HospitalIn the event this information is protected by the Federal Confidentiality of Alcohol and Drug Abuse Patient Records regulations: The Federal rules restrict any use of the information to criminally investigate or prosecute any alcohol or drug abuse patient.[facility] HospitalIn the event this information is protected by the Federal Confidentiality of Alcohol and Drug Abuse Patient Records regulations: The Federal rules restrict any use of the information to criminally investigate or prosecute any alcohol or drug abuse patient.[facility] HospitalIn the event this information is protected by the Federal Confidentiality of Alcohol and Drug Abuse Patient Records regulations: The Federal rules restrict any use of the information to criminally investigate or prosecute any alcohol or drug abuse patient.[facility] HospitalIn the event this information is protected by the Federal Confidentiality of Alcohol and Drug Abuse Patient Records regulations: The Federal rules restrict any use of the information to criminally investigate or prosecute any alcohol or drug abuse patient.[facility] HospitalIn the event this information is protected by the Federal Confidentiality of Alcohol and Drug Abuse Patient Records regulations: The Federal rules restrict any use of the information to criminally investigate or prosecute any alcohol or drug abuse patient.[facility] HospitalIn the event this information is protected by the Federal Confidentiality of Alcohol and Drug Abuse Patient Records regulations: The Federal rules restrict any use of the information to criminally investigate or prosecute any alcohol or drug abuse patient.[facility] HospitalIn the event this information is protected by the Federal Confidentiality of Alcohol and Drug Abuse Patient Records regulations: The Federal rules restrict any use of the information to criminally investigate or prosecute any alcohol or drug abuse patient.[facility] HospitalIn the event this information is protected by the Federal Confidentiality of Alcohol and Drug Abuse Patient Records regulations: The Federal rules restrict any use of the information to criminally investigate or prosecute any alcohol or drug abuse patient.[facility] HospitalIn the event this information is protected by the Federal Confidentiality of Alcohol and Drug Abuse Patient Records regulations: The Federal rules restrict any use of the information to criminally investigate or prosecute any alcohol or drug abuse patient.[facility] HospitalIn the event this information is protected by the Federal Confidentiality of Alcohol and Drug Abuse Patient Records regulations: The Federal rules restrict any use of the information to criminally investigate or prosecute any alcohol or drug abuse patient.[facility] HospitalIn the event this information is protected by the Federal Confidentiality of Alcohol and Drug Abuse Patient Records regulations: The Federal rules restrict any use of the information to criminally investigate or prosecute any alcohol or drug abuse patient.[facility] HospitalIn the event this information is protected by the Federal Confidentiality of Alcohol and Drug Abuse Patient Records regulations: The Federal rules restrict any use of the information to criminally investigate or prosecute any alcohol or drug abuse patient.[facility] HospitalIn the event this information is protected by the Federal Confidentiality of Alcohol and Drug Abuse Patient Records regulations: The Federal rules restrict any use of the information to criminally investigate or prosecute any alcohol or drug abuse patient.[facility] HospitalIn the event this information is protected by the Federal Confidentiality of Alcohol and Drug Abuse Patient Records regulations: The Federal rules restrict any use of the information to criminally investigate or prosecute any alcohol or drug abuse patient.[facility] HospitalIn the event this information is protected by the Federal Confidentiality of Alcohol and Drug Abuse Patient Records regulations: The Federal rules restrict any use of the information to criminally investigate or prosecute any alcohol or drug abuse patient.[facility] HospitalIn the event this information is protected by the Federal Confidentiality of Alcohol and Drug Abuse Patient Records regulations: The Federal rules restrict any use of the information to criminally investigate or prosecute any alcohol or drug abuse patient.[facility] HospitalIn the event this information is protected by the Federal Confidentiality of Alcohol and Drug Abuse Patient Records regulations: The Federal rules restrict any use of the information to criminally investigate or prosecute any alcohol or drug abuse patient.[facility] HospitalIn the event this information is protected by the Federal Confidentiality of Alcohol and Drug Abuse Patient Records regulations: The Federal rules restrict any use of the information to criminally investigate or prosecute any alcohol or drug abuse patient.[facility] HospitalIn the event this information is protected by the Federal Confidentiality of Alcohol and Drug Abuse Patient Records regulations: The Federal rules restrict any use of the information to criminally investigate or prosecute any alcohol or drug abuse patient.[facility] HospitalIn the event this information is protected by the Federal Confidentiality of Alcohol and Drug Abuse Patient Records regulations: The Federal rules restrict any use of the information to criminally investigate or prosecute any alcohol or drug abuse patient.[facility] HospitalIn the event this information is protected by the Federal Confidentiality of Alcohol and Drug Abuse Patient Records regulations: The Federal rules restrict any use of the information to criminally investigate or prosecute any alcohol or drug abuse patient.[facility] HospitalIn the event this information is protected by the Federal Confidentiality of Alcohol and Drug Abuse Patient Records regulations: The Federal rules restrict any use of the information to criminally investigate or prosecute any alcohol or drug abuse patient.[facility] HospitalIn the event this information is protected by the Federal Confidentiality of Alcohol and Drug Abuse Patient Records regulations: The Federal rules restrict any use of the information to criminally investigate or prosecute any alcohol or drug abuse patient.[facility] HospitalIn the event this information is protected by the Federal Confidentiality of Alcohol and Drug Abuse Patient Records regulations: The Federal rules restrict any use of the information to criminally investigate or prosecute any alcohol or drug abuse patient.[facility] HospitalIn the event this information is protected by the Federal Confidentiality of Alcohol and Drug Abuse Patient Records regulations: The Federal rules restrict any use of the information to criminally investigate or prosecute any alcohol or drug abuse patient.[facility] HospitalIn the event this information is protected by the Federal Confidentiality of Alcohol and Drug Abuse Patient Records regulations: The Federal rules restrict any use of the information to criminally investigate or prosecute any alcohol or drug abuse patient.[facility] HospitalIn the event this information is protected by the Federal Confidentiality of Alcohol and Drug Abuse Patient Records regulations: The Federal rules restrict any use of the information to criminally investigate or prosecute any alcohol or drug abuse patient.[facility] HospitalIn the event this information is protected by the Federal Confidentiality of Alcohol and Drug Abuse Patient Records regulations: The Federal rules restrict any use of the information to criminally investigate or prosecute any alcohol or drug abuse patient.[facility] HospitalIn the event this information is protected by the Federal Confidentiality of Alcohol and Drug Abuse Patient Records regulations: The Federal rules restrict any use of the information to criminally investigate or prosecute any alcohol or drug abuse patient.[facility] HospitalIn the event this information is protected by the Federal Confidentiality of Alcohol and Drug Abuse Patient Records regulations: The Federal rules restrict any use of the information to criminally investigate or prosecute any alcohol or drug abuse patient.[facility] HospitalIn the event this information is protected by the Federal Confidentiality of Alcohol and Drug Abuse Patient Records regulations: The Federal rules restrict any use of the information to criminally investigate or prosecute any alcohol or drug abuse patient.[facility] HospitalIn the event this information is protected by the Federal Confidentiality of Alcohol and Drug Abuse Patient Records regulations: The Federal rules restrict any use of the information to criminally investigate or prosecute any alcohol or drug abuse patient.[facility] HospitalIn the event this information is protected by the Federal Confidentiality of Alcohol and Drug Abuse Patient Records regulations: The Federal rules restrict any use of the information to criminally investigate or prosecute any alcohol or drug abuse patient.[facility] HospitalIn the event this information is protected by the Federal Confidentiality of Alcohol and Drug Abuse Patient Records regulations: The Federal rules restrict any use of the information to criminally investigate or prosecute any alcohol or drug abuse patient.[facility] HospitalIn the event this information is protected by the Federal Confidentiality of Alcohol and Drug Abuse Patient Records regulations: The Federal rules restrict any use of the information to criminally investigate or prosecute any alcohol or drug abuse patient.[facility] HospitalIn the event this information is protected by the Federal Confidentiality of Alcohol and Drug Abuse Patient Records regulations: The Federal rules restrict any use of the information to criminally investigate or prosecute any alcohol or drug abuse patient.[facility] HospitalIn the event this information is protected by the Federal Confidentiality of Alcohol and Drug Abuse Patient Records regulations: The Federal rules restrict any use of the information to criminally investigate or prosecute any alcohol or drug abuse patient.[facility] HospitalIn the event this information is protected by the Federal Confidentiality of Alcohol and Drug Abuse Patient Records regulations: The Federal rules restrict any use of the information to criminally investigate or prosecute any alcohol or drug abuse patient.[facility] HospitalIn the event this information is protected by the Federal Confidentiality of Alcohol and Drug Abuse Patient Records regulations: The Federal rules restrict any use of the information to criminally investigate or prosecute any alcohol or drug abuse patient.[facility] HospitalIn the event this information is protected by the Federal Confidentiality of Alcohol and Drug Abuse Patient Records regulations: The Federal rules restrict any use of the information to criminally investigate or prosecute any alcohol or drug abuse patient.[facility] HospitalIn the event this information is protected by the Federal Confidentiality of Alcohol and Drug Abuse Patient Records regulations: The Federal rules restrict any use of the information to criminally investigate or prosecute any alcohol or drug abuse patient.[facility] HospitalIn the event this information is protected by the Federal Confidentiality of Alcohol and Drug Abuse Patient Records regulations: The Federal rules restrict any use of the information to criminally investigate or prosecute any alcohol or drug abuse patient.[facility] HospitalIn the event this information is protected by the Federal Confidentiality of Alcohol and Drug Abuse Patient Records regulations: The Federal rules restrict any use of the information to criminally investigate or prosecute any alcohol or drug abuse patient.[facility] <item> Privacy Markings (unrecogniz ed section and content) Section Author: Maryana Castillo PROHIBITION ON REDISCLOSURE OF CONFIDENTIAL INFORMATION This notice accompanies a disclosure of information concerning a client made to you with the consent of such client. Goals (unrecognized section and content) Goals may be documented in a n alternate section FOR RECORDS PERTAINING TO PATIENTS WHO ARE [...] BE BASED ON THE PRIMARY CLINICAL RECORDS. [facility] [employer] [facility]. provides no warranty or guarantee of the accuracy or completeness of information in this document.
--- NOTE | 2024-12-28 23:16 | ECG_ITS ---
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 Measurements Intervals [place] Rate: 130 P: 65 IN: 134 QRS: 71 QRSD: 74 T: -52 QT: 278 QTc: 355 Interpretive Statements 1120 Sinus tachycardia [address] depression 4664 Twave abnormality, possible inferior ischemia 8305 Short QTc interval 9150 abnormal ECG Compared to ECG 10/24/2024 17:44:16 Possible ischemia still present Electronically Signed On 12-29-2024 19:57:30 EDT by RICKY AGUILAR M.D.
--- NOTE | 2024-12-28 23:25 | ED_ITS ---
HPI - Abdominal Pain General Chief Complaint: Abdominal Pain Stated Complaint: ABDOMINAL PAIN Time Seen by Provider: 12/28/24 23:08 Source: patient Mode of arrival: walk-in Limitations: no limitations History of Present Illness HPI narrative: patient has complicated history . History of Crohn's disease. Has ileostomy bag that has prolapsed and present for several years. Seen at [facility] 2 weeks ago and diagnosed with an abdominal abscess. Transferred to [facility]. 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 She has upcoming surgery for her anus and sigmoid. she has chronic discomfort of her anal area but she comes in tonight because of increasing abdominal pain. Some nausea. No fever Related Data Home Medications ?Medication ?Instructions ?Recorded ?Confirmed buspirone 10 mg tablet 10 mg PO TID 05/18/24 12/28/24 levetiracetam 500 mg tablet mg PO 12/28/24 Allergies Allergy/AdvReac Type Severity Reaction Status Date / Time No Known Drug Allergies Allergy Verified 12/28/24 23:02 Review of Systems ROS Status of ROS 10 or more systems reviewed and unremark able except as noted in history and below [facility] Medical History (Updated 12/29/24 @ 03:35 by Lion Viramontes MD) Ileostomy in place ?Z93.2 - Ileostomy status (ICD-10) Social History Smoking status: Never smoker Little interest or pleasure in doing things: not at all Feeling down, depressed, or hopeless: not at all Exam Constitutional Vital Signs, click to edit/add: Last Vital Signs Temp 97.6 F 12/28/24 22:53 Pulse 145 H 12/28/24 22:53 Resp 18 12/28/24 22:53 BP 119/80 12/28/24 22:53 Pulse Ox 96 12/28/24 22:53 O2 Del Method Room Air 12/28/24 22:53 Common normals: oriented x3 Other: appears chronically ill. pale color HENMT Common normals: normocephalic and head/scalp atraumatic Eye Common normals: PERRL and EOMs intact bilaterally Respiratory Common normals: normal respiratory effort, no retractions, no use of accessory muscles and clear to auscultation bilaterally Cardio Common normals: S1 normal heart sound and S2 normal heart sound Rate: tachycardic GI Other: ileostomy in place. Diffuse nonspecific tenderness Extremity Common normals: normal to inspection and full ROM Neuro Common normals: oriented x3, CN's II-XII intact bilaterally, moves all extrem ities and no focal motor deficits Psych Appearance: grossly normal Course Vital Signs Vital signs: Vital Signs Temperature 97.6 F 12/28/24 22:53 Pulse Rate 145 H 12/28/24 22:53 Respiratory Rate 18 12/28/24 22:53 Blood Pressure 119/80 12/28/24 22:53 Pulse Oximetry 96 12/28/24 22:53 Oxygen Delivery Method Room Air 12/28/24 22:53 Temperature 97.6 F 12/28/24 22:53 Pulse Rate 145 H 12/28/24 22:53 Respiratory Rate 18 12/28/24 22:53 Blood Pressure 119/80 12/28/24 22:53 Pulse Oximetry 96 12/28/24 22:53 Oxygen Delivery Method Room Air 12/28/24 22:53 MDM - Abdominal Pain MDM Narrative Medical decision making narrative: patient with known and active IBD. She complains of increased pain and believes there is an abscess in her abdomen. CT with evidence of pancoltis c/w IBD. She does have perirectal abscess with drainage catheter in place. she is reassured . She is hypokalemic and IV supplementation ordered. Mild elevation lactic acid. IV hydration ordered. Patient afebrile. Patient did not want to stay to complete potassium supplementation. 40meq ordered and she received 1/2 or more of the prescribed potassium. Patient is feeling better and requesting discharge. Discharged with prescription for KCL. she has pain medication at home and will follow up with her doctor Lab Data Labs: Lab Results 12/28/24 Range/Units 23:15 WBC 17.1 H (4.0-11.0) 10^3/uL RBC 3.76 L (4.20-5.40) 10^6/uL Hgb 10.8 L (12.0-16.0) g/dL Hct 35.9 L (36.0-48.0) % MCV 95.5 (81.0-99.0) fL MCH 28.7 (26.7-34.0) pg MCHC 30.1 (29.9-35.2) g/dL RDW 15.9 H (11.0-15.0) % Plt Count 681 H (150-450) 10^3/uL MPV 8.6 L (9.5-13.5) fL Seg Neuts % (Manual) 77.0 H (43.0-75.0) Band Neutrophils % 0.0 (0-5) % Lymphocytes % (Manual) 12.0 L (20.5-60.0) % Atypical Lymphs % (Man) 4.0 % Monocytes % (Manual) 7.0 (1.7-12.0) % Eosinophils % (Manual) 0.0 L (0.9-7.0) % Basophils % (Manual) 0.0 L (0.2-2.0) % Neutrophils # (Manual) 13.16 H (1.4-6.5) 10^3/uL Band Neutrophils # 0.0 (0.0-0.3) 10^3/uL Lymphocytes # (Manual) 2.05 (1.20-3.80) 10^3/uL Abs Atypical Lymphs Man 0.68 Monocytes # (Manual) 1.19 H (0.30-0.80) 10^3/uL Eosinophils # (Manual) 0.00 (0.00-0.70) 10^3/uL Basophils # (Manual) 0.00 (0.00-0.10) 10^3/uL Toxic Vacuolation 1+ Sodium 141 (136-145) mmol/L Potassium 2.9 L* (3.5-5.1) mmol/L Chloride 104 (98-107) mmol/L Carbon Dioxide 26.1 (21.0-32.0) mmol/L Anion Gap 13.8 BUN 14.0 (7.0-18.0) mg/dL Creatinine 0.82 (0.55-1.02) mg/dL Est GFR ( Amer) >60 (>=60 mL/min/1.73m^2) Est GFR (Non-Af Amer) >60 (>=60 mL/min/1.73m^2) BUN/Creatinine Ratio 17.1 Glucose 116 H (74-106) mg/dL Lactate 2.1 H* (0.4-2.0) mmol/L Calcium 8.9 (8.5-10.1) mg/dL Total Bilirubin 0.3 (0.2-1.0) mg/dL AST 11 L (15-37) U/L ALT 13 L (14-59) U/L Alkaline Phosphatase 200 H (46-116) U/L Total Protein 7.2 (6.4-8.2) g/dL Albumin 1.7 L (3.4-5.0) g/dL Globulin 5.5 g/dL Albumin/Globulin Ratio 0.3 Discharge Plan Discharge Chief Complaint: Abdominal Pain Clinical Impression: Exacerbation of Crohn's disease, Hypokalemia, Abscess, perianal Patient Disposition: Home, Self-Care Prescriptions / Home Meds: No Action buspirone 10 mg tablet 10 mg PO TID levetiracetam 500 mg tablet PO Print Language: Indonesian Instructions: Crohn Disease (ED), Hypokalemia (ED), Anorectal Abscess and Anal Fistula (ED) Additional Instructions: follow up with your doctor in 1-2 days for recheck Referrals: Physician,Non-Staff, MD [Primary Care Provider] - 1 week
--- NOTE | 2024-12-28 23:32 | PC.NURSE ---
Patient with significant abdominal history Usually seen at [facility] Has Ileostomy with prolapsed intestine within ostomy bag states she has an intra-abdominal abscess and several perirectal fistulas and she is supposed to be having surgery on the increased abdominal pain started today She is tachycardic on arrival
[2024-12-28 23:36] LABS: Hematocrit 35.9 % (36.0-48.0); Hemoglobin 10.8 g/dL (12.0-16.0); Mean Corpuscular HGB Conc 30.1 g/dL (29.9-35.2); Mean Corpuscular Hemoglobin 28.7 pg (26.7-34.0); Mean Corpuscular Volume 95.5 fL (81.0-99.0); Mean Platelet Volume 8.6 fL (9.5-13.5); Platelet Count 681 10^3/uL (150-450); Red Blood Count 3.76 10^6/uL (4.20-5.40); Red Cell Distribution Width 15.9 % (11.0-15.0); White Blood Count 17.1 10^3/uL (4.0-11.0)
[2024-12-28 23:47] LABS: Alanine Aminotransferase 13 U/L (14-59); Albumin Globulin Ratio 0.3; Albumin Level 1.7 g/dL (3.4-5.0); Alkaline Phosphatase 200 U/L (46-116); Anion Gap 13.8; Aspartate Amino Transferase 11 U/L (15-37); BUN Creatinine Ratio 17.1; Bilirubin Total 0.3 mg/dL (0.2-1.0); Calcium 8.9 mg/dL (8.5-10.1); Carbon Dioxide 26.1 mmol/L (21.0-32.0); Chloride 104 mmol/L (98-107); Estimated GFR (African America >60 (>=60 mL/min/1.73m^2); Estimated GFR (Non-African Ame >60 (>=60 mL/min/1.73m^2); Globulin 5.5 g/dL; Glucose 116 mg/dL (74-106); Sodium 141 mmol/L (136-145); Total Protein 7.2 g/dL (6.4-8.2)
[2024-12-28] MEDS: 0.9 % SODIUM CHLORIDE 1,000 ML 999 ML IV (23:49)
[2024-12-28] MEDS: ONDANSETRON PF 4 MG/2 ML VIAL IV (23:49)
[2024-12-28 23:52] LABS: Lactate/Lactic Acid 2.1 mmol/L (0.4-2.0); Potassium 2.9 mmol/L (3.5-5.1)
[2024-12-28 23:56] LABS: Atypical Lymphocytes Abs Man 0.68; Lymphocytes Absolute Manual 2.05 10^3/uL (1.20-3.80); Monocytes Absolute Manual 1.19 10^3/uL (0.30-0.80); Segmented Neut Absolute Manual 13.16 10^3/uL (1.4-6.5); Toxic Vacuolation 1+
[2024-12-29] MEDS: LORAZEPAM 2 MG/ML VIAL 1 MG IV (00:06)
[2024-12-29] MEDS: POTASSIUM CHLORIDE IN 0.9%NACL 1,000 ML 100 ML IV (00:38)
[2024-12-29] MEDS: FENTANYL CITRATE/PF 100 MCG/2 ML VIAL 50 MCG IV ×2 (01:12→03:38)
== END 2024-12-29 04:17 | disposition home or self-care (01) ==
PROVIDERS: Emergency Provider Internal Medicine
DX: K50.90 Crohn's disease, unspecified, without complications (principal); Z93.2 Ileostomy status; K61.1 Rectal abscess; E87.6 Hypokalemia
CPT/HCPCS: 36415; 74177; 80053; 81001; 83605; 85007; 85027; 93005; 96365; 96366; 96375; 96376; 99285; J2060; J2405; J3010; Q9966; Q9967

== ENCOUNTER 2025-04-18 12:28 | Emergency (ER) | payer SELFPAY ==
[2025-04-18 12:33] VITALS: BP 118/84; PULSE 98; TEMP 36.7; O2SAT 100; BMI 22.4
--- OUTSIDE RECORDS SUMMARY | 2025-04-18 12:40 | XMS_ITS | CCD ---
Author Organization [facility] Care Team Providers Care Food Service Name Role Phone HARRY DEVINE Admitting Unavailable HARRY DEVINE Attending Unavailable MISC, DOCTOR Consulting Unavailable HARRY DEVINE Consulting Unavailable Jose Raul Phillips Primary Care Provider [phone] Jose Raul Phillips Primary Care Provider Jose [...] le Kale RENDON Primary Care Physician Mingo Rendon Unavailable Unavailable [place] Unavailable Kale RENDON Primary Care Physician Kale Rendon MD Primary Care Provi vasile Alfred Graham Attending Unavailable Heriberto Cervantes Attending Unavailable Harry Devine Attending Unavailable Carolyn [...] Unavailable Hajdari, Astrit H Attending Unavailable Zaira Gonzalez RPh Unavailable Unavailabl e Havitoari, Astrit H Attending Unavailable Ida, Harry Attending Unavailable Elliot Macias Attending Unavailable Ida, Harry Attending Unavailable Ida, Harry Attending Unavailable Hajdari, Carolyn H Attending Unavailable Elliot Macias Attending Unavailable Ida, Harry Attending Unavailable Ida, Harry Attending Unavailable SarminiJa Attending Unavaila ble Ida, Harry Attending Unavailable Dago OLVERA Admitting Unavailable Marshall Jeff Consulting Unavailable Shelli Jaimes Attending Unavailable Jeff Marinelli Consulting Unavailable Jeff Marinelli Consulting Unavailable Jeff Marinelli Consulting Unavailable MarshallJeff Consulting Unavailable MarshallJeff Consulting Unavailable MarshallJeff Consulting Unavailable Jeff Marinelli Consulting Unavailable Jeff Marinelli Consulting Unavailable MD Jeff Marinelli Consulting Unavailable Tyson Kinney Consulting UnavailTyson Arrieta Consulting UnavailMD Tyson Arrieta Consulting Unavail able Aldo Estrada Consulting Unavailable Aldo Estrada Consulting Unavailable Aldo Estrada Consulting Unavailable Ted Petersen DO Attending Provider Ted Petersen Attending Unavailable Ted Petersen Admitting Unavailable PecBALTAZAR brown Jr. Consulting Unavail able BALTAZAR Estrada Jr. Consulting Unavail able Unavailable Primary Care Provider UnavailDago Bower Admitting Unavailable Aldo Estrada Consulting Unavailable Shelli Jaimes Attending Unavailable PecBALTAZAR brown Jr. Consulting Unavail able BALTAZAR Estrada Jr. Consulting Unavail Jeff Griffith Consulting Unavailable MD Jeff Marinelli Consulting Unavailable Jeff Marinelli Consulting Unavailable MarshallJeff Consulting Unavailable MarshallJeff Consulting Unavailable MarshallJeff Consulting Unavailable Marshall, Jeff Consulting Unavailable Marshall, Jeff Consulting Unavailable Marshall, Jeff Consulting Unavailable Quinn Rodriguez Attending Unavailable Riley GILES, Karlos Unavailable Dago OLVERA Attending Unavailable Hajdari, Astrradhika H Attending Unavailable Dokken, DO Simon A Attending Unavailable Hajdari, Astrit H Attending Unavailable Hakriss, Astrradhika H Attending Unavailable Dokken, DO Alfred Wallace Attending Unavailable Heriberto Cervantes Attending Unavailable Heriberto Cervantes Attending Unavailable JEANINE ISAAC Admitting Unavailable ISAIAS CERVANTES Referring Unavailable KOMAL HERNANDEZ Attending Unavailable Unavailable Primary Care Provider UnavailHarry Acuna Attending Unavailable Harry Devine Attending Unavailable Ja Bhardwaj Attending Unavaila ALEX Harding Attending Unavailable [facility], . Primary Care Physician [phone] Heriberto Cervantes Attending Unavailable Elliot Macias Attending Unavailable Elliot Macias Attending Unavailable Elliot Macias Attending Unavailable Heriberto Cervantes Attending Unavailable SHAQ THAKKAR MD Attending Unavaila eleanor PHYSICIAN, NOT RECORDED Primary Care UnavailJanie Dupont CNP Primary Care Provider [phone] Magdalene Hogan Unavailable MAGDALENE BOYLE Attending Unavailable MAGDALENE BOYLE Attending Unavailable PATRICIA HUBER Attending Unavailable KOMAL HERNANDEZ Attending Unavailable SHAQ THAKKAR Admitting Unavailab SHQA Woods Attending Unavailab KALE Hernandez Primary Care Unava ilable SHAQ THAKKAR Admitting Unavailab SHAQ Woods Attending Unavailab le KALE RENDON Primary Care Unava ilable Riley GILES, [place] Unavailable KALE RENDON Primary Care Unava ilable SHAQ THAKKAR Attending Unavailab SHAQ Woods Referring Unavailab le KALE RENDON Primary Care Unava ilable ANAND CONTE Attending Unavailable JANIE GARCÍA Primary Care Unavailable LEE ANN HUMPHRIES Referring Unavailable KALE RENDON Primary Care Unava ilable LEE ANN HUMPHRIES Referring Unavailable KALE RENDON Primary Care Unava ilable SHAQ THAKKAR Attending Unavailab antonia THAKKAR, SHAQ RUBALCAVA Referring Unavailab JANIE Wilson Primary Care Unavailable SHAQ THAKKAR Referring Unavailab SHAQ Woods Referring Unavailab le SHAQ THAKKAR Attending UnavailKALE Sepulveda Primary Care Unava ilable Allergies Allergy Classification Reported Allergen(s) Allergy Type Date of Onset Reaction(s) Facility (20 sources) HYDROmorphone; Translations: [hydromorphone] Drug Allergy 05-24-2023 Itching [facility] (1 source) HYDROmorphone Drug Allergy 05-26-2023 [facility] Repository Medications Current Medications Medication Drug Class(es) Dates Sig (Normalized) Sig (Original) acetaminophen 500 mg oral tablet (16 sources) Start: 12-18-2024 take 2 tablets by [...] on above: Take 2 tablets by mo [facility] every 6 hours as needed for pain. acetaminophen 325 mg / HYDROcodone bitartrate 5 mg oral tablet (20 sources) Opioid Agonist Start: 08-27-2021 [place] 325 mg-5 mg oral tablet 1 tab(s), [...] for 2 day(s), 8 tab(s), Refill(s) 0, [id number], 167, cm, 11/14/24 17:36:00 EST, Height/Length [...] th daily at bedtime. Amoxicillin / Clavulanate (9 sources) Penicillin-class Antibacterial Start: 12-24-19 take 1 [...] 12/18/2024 5:51 PM EDT 12/18/2024 12/25/2024 Active Bacillus coagulan-calcium carb (DIGESTIVE ADVANTAGE PROBIOTIC) 2 billion cell- 140 mg cap (8 sources) Start: 01-14-2025 take 1 capsule by mouth once daily in the morning Bacillus coagulan-calcium carb (DIGESTIVE ADVANTAGE PROBIOTIC) 2 billion cell- 140 mg cap Take 1 capsule by mouth once daily. 30 capsule 01/14/2025 9:36 AM EDT 01/14/2025 Active Start: 01-14-2025 End: 02-13-2025 take 1 capsule by mouth once daily in the morning Bacillus coagulan-calcium carb (DIGESTIVE ADVANTAGE PROBIOTIC) 2 billion cell- 140 mg cap Take 1 capsule by mouth once daily. 30 capsule 01/14/2025 9:36 AM EDT 01/14/2025 02/13/2025 Active busPIRone hydrochloride 10 m g oral tablet (20 sources) Start: 05-18-2024 busPIRone (BUS PAR) 10 mg tablet 05/18/2024 Active Start: 05-18-2024 take 1 tablet by juan jose th three times daily busPIRone (BUSPAR) 10 mg tablet Take 10 mg by mouth three times a day. 12/03/2024 Active cephalexin 500 mg oral capsule (3 sources) Cephalosporin Antibacterial Start: 12-30-2024 End: 01-04-2025 take 1 capsule by mouth every twelve hours Keflex 500 mg Cap 500 mg = 1 cap(s), Oral, q12hr, X 5 day(s), # 10 cap(s), Refills(s) 0, Pharmacy: [facility] #[id number], 167, cm, 12/30/24 17:06:00 EDT, Height/Length Dosing, 52.5, kg, 12/30/24 17:06:00 EDT, Weight Dosing Start Date: 12/30/24 Stop Date: 01/04/25 Status: Ordered Quantity: 10.0 Unit: cap(s) Repeat number: 1 Start: 06-03-2023 End: 06-09-2023 take 1 capsule [...] day(s), # 28 cap(s), Refills(s) 0, Pharmacy: [facility]/pharmacy #[id number], 168, cm, 01/13/23 14:44:00 EDT, Height/Length [...] jose three times a day as needed. 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 1 tablet 01/21/2025 Active dicyclomine hydrochloride 10 mg oral capsule (20 sources) Anticholinergic Start: 11-14-19 End: 11-22-19 take 1 capsule by mouth four times daily Bentyl 10 mg Cap 10 mg = 1 cap(s), Oral, QID, X 7 day(s), # 28 cap(s), Refills(s) 0, Pharmacy: [facility] #[id number], 167, cm, 11/14/24 17:36:00 EST, Height/Length [...] day(s), # 28 cap(s), Refills(s) 0, Pharmacy: [facility]/pharmacy #[id number], 167, cm, 07/13/24 18:32:00 EDT, Height/Length Dosing, 63.6, kg, 07/13/24 18:32:00 EDT, Weight Dosing Start Date: 07/13/24 Stop Date: 07/20/24 Status: Ordered Start: 04-08-2024 End: 04-15-2024 take 1 capsule by mouth four times daily Bentyl 10 mg Cap 10 mg = 1 cap(s), Oral, QID, X 7 day(s), # 28 cap(s), Refills(s) 0, [id number], cm, 04/08/24 11:39:00 EDT, Height/Length Dosing, 77, kg, 04/08/24 11:39:00 EDT, Weight Dosing Start Date: 04/08/24 Stop Date: 04/15/24 Status: Ordered Start: 03-04-2024 take 2 capsules by out four times daily Bentyl 10 mg Cap 20 mg = 2 cap(s), Oral, QID, # 20 cap(s), Refills(s) 0, [id number] 167, cm, 03/04/24 9:30:00 EDT, Height/Length Dosing, 82.6, kg, 03/04/24 9:30:00 EDT, Weight Dosing Start Date: 03/04/24 Status: Ordered Quantity: 20.0 Unit: cap(s) Repeat number: 1 Start: 01-09-2023 End: 01-19-2023 take 1 capsule by mouth four times daily Bentyl 10 mg Cap 10 mg = 1 cap(s), Oral, QID, X 10 day(s), # 40 cap(s), Refills(s) 0, [id number] 168, cm, 01/09/23 12:47:00 EDT, Height/Length [...] by mouth before meals and at bedtime. 0.4 ml enoxaparin sodium 100 mg/ml prefilled syringe (4 sources) Low Molecular Weight Heparin Start: 2024 End: 2024 inject 0.4 mL by subcutaneous injection once daily in the morning enoxaparin (LOVENOX) 40 mg/0.4 mL Inject 0.4 mL subcutaneously once daily for 21 days. 8.4 mL 01/14/2025 9:36 AM EDT 01/15/2025 02/05/2025 Active ferrous sulfate 325 mg oral tablet (2 sources) Start: 2023 take 1 tablet by mouth every other day ferrous sulfate 325 mg (65 mg iron) tablet Take 1 tablet by mouth every other day. 15 tablet 2 10/27/2023 Active Comment on above: Take 1 tablet by juan jose th every other day. gabapentin 100 mg oral capsule (7 sources) Anti-epileptic Agent Start: 2024 take 1 capsule by mouth once daily at bedtime gabapentin (NEURONTIN) 100 mg capsule Take 100 mg by mouth daily at bedtime. 01/21/2025 Active hydrocortisone 25 mg/ml topical cream (6 sources) Corticosteroid Start: 2022 End: 2022 hydrocortisone (ANUSOL-HC) 2.5 % rectal cream Indications: [...] RECTAL route twic e daily. hydrOXYzine hydrochloride 25 mg oral tablet (20 sources) Antihistamine Start: 12-31-19 take 1 tablet by mouth three times daily as needed for anxiety hydrOXYzine hydrochloride 25 mg Tab 25 mg = 1 tab(s), Oral, TID, PRN for anxiety, # 15 tab(s), Refills(s) 0, Pharmacy: [facility] #[id number], 167, cm, 12/30/24 17:06:00 EDT, Height/Length Dosing, 52.5, kg, 12/30/24 17:06:00 EDT, Weight Dosing Start Date: 12/30/24 Status: Ordered Quantity: 15.0 Unit: tab(s) Repeat number: 1 Start: 01-21-2023 End: 02-20-2023 take 1 tablet by mouth every six [...] anxiety, # 20 tab(s), Refills(s) 0, Pharmacy: [facility], 168, cm, 12/18/21 3:53:00 EDT, Height/Length Dosing, 102.3, kg, 12/18/21 3:53:00 EDT, Weight Dosing Start Date: 12/18/21 Status: Ordered Start: 12-18-2021 take 1-2 tablets by mouth four times daily as needed for anxiety Vistaril 25 mg Tab 1-2 tab(s), Oral, QID, PRN as needed for anxiety, # 20 tab(s), Refills(s) 0, Pharmacy: [facility] , 168, cm, 12/18/21 3:53:00 EDT, Height/Length Dosing, 102.3, kg, 12/18/21 3:53:00 EDT, Weight Dosing Start Date: 12/18/21 Status: Ordered Comment on above: Take 1 tablet by juan jose four times daily as needed. Venofer (11 sources) Parenteral Iron Replacement Start: 10-01-19 Venofer Refills(s) 0 Start Date: 10/01/23 Status: Ordered levETIRAcetam 500 mg oral tablet (20 sources) Start: 12-16-19 End: 01-22-20 take 1 tablet by mouth twice daily [...] anxiety, # 6 tab(s), Refills(s) 0, Pharmacy: [facility]/pharm[facility] #[id number], 167, cm, 12/15/24 14:57:00 EDT, Height/Length [...] day(s), # 9 tab(s), Refills(s) 0, Pharmacy: [facility] #[id number], 167, cm, 11/14/24 17:36:00 EST, Height/Length Dosing, 53.1, kg, 11/14/24 17:36:00 EST, Weight Dosing Start Date: 11/14/24 Stop Date: 11/17/24 Status: Ordered lurasidone hydrochloride 20 mg oral tablet (15 sources) Atypical Antipsychotic Start: 02-21-2021 take 1 tablet by mouth once daily Latuda 20 mg oral tablet 20 mg = 1 tab(s), Oral, Daily, # 30 tab(s), Refills(s) 0, Pharmacy: [facility], 166, cm, 02/21/21 8:47:00 EDT, Height/Length Dosing, 97.9, kg, 02/21/21 8:47:00 EDT, Weight Dosing Start Date: 02/21/21 Status: Ordered Magnesium (15 sources) take 2 capsules by mouth once daily Magnesium 100 MG capsule Take 200 mg by mouth Daily Active take 1 tablet by mouth once cristiana y Magnesium 200 mg tab Take 200 mg by mouth once daily. Active magnesium glycinate 100 mg oral tablet (8 sources) Start: 12-09-2024 magnesium glycinate 100 mg oral capsule 200 mg = 2 cap(s), Oral, Daily, # 60 cap(s), Refills(s) 0, Pharmacy: [facility]/pharmacy #[id number], 167, cm, 12/09/24 17:34:00 EDT, Height/Length Dosing, 52.3, kg, 12/09/24 17:34:00 EDT, Weight Dosing Start Date: 12/09/24 Status: Ordered Quantity: 60.0 Unit: cap(s) Repeat number: 1 methocarbamol 500 mg oral tablet (8 sources) Muscle Relaxant Start: 01-14-2025 take 1 tablet by mouth every twelve hours as needed methocarbamol (ROBAXIN) 500 mg tablet Take 1 tablet by mouth every 12 hours as needed. 10 tablet 01/14/2025 9:36 AM EDT 01/14/2025 Active Metoclopramide (20 sources) Dopamine-2 Receptor Antagonist Start: [...] Nausea/Vomiting, # 30 tab(s), Refills(s) 0, Pharmacy: [facility] #[id number], 167.6, cm, 04/26/23 22:31:00 EDT, Height/Length Dosing, 87, kg, 04/26/23 22:31:00 EDT, Weight Dosing Start Date: 04/27/23 Status: Ordered Comment on above: Take 1 tablet by juan jose th three times a day. metroNIDAZOLE 500 mg oral tablet (15 sources) Nitroimidazole Antimicrobial Start: take 1 tablet [...] symptoms, # 1 kit(s), Refills(s) 0, [id number], cm, 11/22/24 3:24:00 EST, Height/Length Dosing, 57, kg, 11/22/24 3:24:00 EST, Weight Dosing Start Date: 11/25/24 Status: Ordered Quantity: 1.0 Unit: kit(s) Repeat number: 1 neomycin sulfate 500 mg oral tablet (15 sources) Aminoglycoside Antibacterial Start: neomycin 500 mg [...] mg capsule Active 100 MG PO Q12H 10 May 25, 2023 11:00pm administer with a meal/food; swallow whole; do not open, crush, dissolve , or chew ondansetron 4 mg disintegrating oral tablet (20 sources) Serotonin-3 Receptor Antagonist Start: take 1 tablet by mouth every six hours ondansetron 4 mg Dis Tab 4 mg = 1 tab(s), Oral, q6hr, # 12 tab(s), Refills(s) 0, Pharmacy: [facility]acy #[id number], 167, cm, 10/02/24 14:00:00 EST, Height/Length [...] VOMITING oxyCODONE hydrochloride 5 mg oral tablet (20 sources) Opioid Agonist Start: 5 End: 5 take 1 tablet by mouth every six hours as needed for pain oxyCODONE IR (ROXICODONE) 5 mg immediate release tablet Indications: Crohn's disease of perianal region, with fistula (HCC) , Crohn's colitis, unspecified complication (HCC) , Post-op pain , Crohn's disease of large intestine without complication (HCC) , Crohn's disease of small and large intestines with complication (HCC) , Perineal abscess Take 1 tablet by mouth every 6 hours as needed for pain for up to 7 days. 25 tablet 01/14/2025 9:36 AM EDT 01/14/2025 01/21/2025 Active Start: 12-26-2024 End: 01-02-2025 oxyCODONE IR (ROXICODONE) 5 mg immediate release tablet Indications: Crohn's disease of perianal region with fistula (HCC) Take 1 tablet by mouth every 8 hours as needed for pain for up to 7 days. Patient should start on December 26, 2024. 21 tablet 12/26/2024 01/02/2025 Active Start: 12-23-2024 take 1 capsule by [facility] every six hours as needed for pain oxyCODONE 5 mg Cap 5 mg = 1 cap(s), Oral, q6hr, PRN for pain, # 10 cap(s), Refills(s) 0, Pharmacy: [facility]/pharmacy #[id number], 167, cm, 12/23/24 13:00:00 EDT, Height/Length [...] pain, # 10 tab(s), Refills(s) 0, Pharmacy: [id number], 167.6, cm, 12/12/24 19:58:00 EDT, Height/Length [...] Start: 11-25-2024 take 1 capsule by mo [facility] every six hours as needed for pain oxyCODONE 5 mg Cap 5 mg = 1 cap(s), Oral, q6hr, PRN for pain, # 16 cap(s), Refills(s) 0, Pharmacy: [id number], 167, cm, 11/22/24 3:24:00 EST, Height/Length [...] day(s), # 12 tab(s), Refills(s) 0, Pharmacy: [id number], 167, cm, 12/21/23 14:53:00 EDT, Height/Length [...] Comment on above: Take 1 tablet by [facility] every 6 hours as needed for pain for up to 1 day. predniSONE 50 mg oral tablet (20 sources) Start: 11-14-2024 End: 11-21-2024 take 1 tablet by mouth once daily predniSONE 50 mg Tab 50 mg = 1 tab(s), Oral, Daily, X 7 day(s), # 7 tab(s), Refills(s) 0, [id number] 167, cm, 11/14/24 17:36:00 EST, Height/Length Dosing, 53.1, kg, 11/14/24 17:36:00 EST, Weight Dosing Start Date: 11/14/24 Stop Date: 11/21/24 Status: Ordered Start: 07-13-2024 End: 07-18-2024 take 1 tablet by mouth once daily predniSONE 50 mg Tab 50 mg = 1 tab(s), Oral, Daily, X 5 day(s), # 5 tab(s), Refills(s) 0, [id number] 167, cm, 07/13/24 18:32:00 EDT, [...] prednisone., # 72 tab(s), Refills(s) 0, [id number] 167, cm, 04/08/24 11:39:00 EDT, [...] daily, # 72 tab(s), Refills(s) 0, [id number] 167, cm, 03/08/24 9:51:00 EDT, Height/Length [...] days., # 75 tab(s), Refills(s) 0, Pharmacy: [facility] #[id number], 167, cm, 12/21/23 14:53:00 EDT, Height/Length Dosing, 85, kg, 12/21/23 14:53:00 EDT, Weight Dosing Start Date: 12/21/23 Status: Ordered Start: 12-07-2023 predniSONE 10 mg Tab See Instructions, 6 tabs for 2 days,5 tabs for 2 days,4 tabs for 2 days,3 tabs for 2 days,2 tabs for 2 days,1 tab for 2 days, # 42 tab(s), Refills(s) 0, Pharmacy: [facility]/pharmacy #[id number], 167, cm, 12/07/23 18:59:00 EDT, Height/Length Dosing, 84.9, kg, 12/07/23 18:59:00 EDT, Weight Dosing Start Date: 12/07/23 Status: Ordered Start: 05-26-2023 take 2 tablets by [facility] once daily in the morning Prednisone 20 mg tablet Active 40 MG PO Every morning 06 27May 25, 2023 11:00pm administer with food or milk Start: 01-09-2023 End: 01-16-2023 take 1 tablet by mouth once daily predniSONE 50 mg Tab 50 mg = 1 tab(s), Oral, Daily, X 7 day(s), # 7 tab(s), Refills(s) 0, Pharmacy: [facility]/pharmacy #[id number], 168, cm, 01/09/23 12:47:00 EDT, Height/Length [...] day(s), # 10 tab(s), Refills(s) 0, Pharmacy: [facility] #[id number], 167, cm, 09/29/22 19:14:00 EST, Height/Length Dosing, [...] 7 days. Take 4 tablets by mo [facility] once daily for 7 days, THEN 3 tablets once daily for 7 days. Take 4 tablets by mo [facility] once daily for 7 days, THEN 3.5 [...] tablet once daily for 7 days. VIT 11-KSQS-OFOXK-DHA ORAL (14 sources) VIT 74-SPYR-QUCEN-DHA ORAL Take by mouth. 0 Suspended VIT 10- [id number] ORAL Take by mouth. 0 Active Comment on above: Take by mouth. promethazine hydrochloride 25 mg oral tablet (20 sources) Phenothiazine Start: 10-02-2024 promethazine (PHENERGAN) 25 mg tablet Take 25 mg by mouth. 10/02/2024 Active Start: 01-13-2023 take 1 tablet by [facility] every six hours as needed for nausea promethazine 25 mg Tab 25 mg = 1 tab(s), Oral, q6hr, PRN as needed for nausea/vomiting, # 20 tab(s), Refills(s) 0, Pharmacy: [facility]/pharmacy #[id number], 168, cm, 01/13/23 14:44:00 EDT, Height/Length Dosing, 93.2, kg, 01/13/23 14:44:00 EDT, Weight Dosing Start Date: 01/13/23 Status: Ordered Quantity: 20.0 Unit: tab(s) Repeat number: 1 Start: 05-31-2022 take 25 mg rectal ro [facility] every six hours as needed for nausea [...] Serotonin-1b and Serotonin-1d Receptor Agonist Start: 10-15-19 24 take 1 tablet by mouth every twelve [...] ODT 4 mg Tab-Dis (20 sources) Start: 12-30-2024 take 1 tablet by mouth every eight hours as needed for nausea Zofran ODT 4 mg Tab-Dis 4 mg = 1 tab(s), Oral, q8hr, PRN Nausea/Vomiting, # 12 tab(s), Refills(s) 0, Pharmacy: [facility]/pharmacy #[id number], 167, cm, 12/30/24 17:06:00 EDT, Height/Length Dosing, 52.5, kg, 12/30/24 17:06:00 EDT, Weight Dosing Start Date: 12/30/24 Status: Ordered Quantity: 12.0 Unit: tab(s) Repeat number: 1 Start: 12-09-2024 take 1 tablet by juan jose th every six hours Zofran ODT 4 mg Tab-Dis 4 mg = 1 tab(s), Oral, q6hr, # 12 tab(s), Refills(s) 0, Pharmacy: [id number], 167, cm, 12/09/24 17:34:00 EDT, Height/Length Dosing, 52.3, kg, 12/09/24 17:34:00 EDT, Weight Dosing Start Date: 12/09/24 Status: Ordered Quantity: 12.0 Unit: tab(s) Repeat number: 1 Start: 11-14-2024 take 1 tablet by juan jose th every eight hours as needed for nausea Zofran ODT 4 mg Tab-Dis 4 mg = 1 tab(s), Oral, q8hr, PRN Nausea/Vomiting, # 12 tab(s), Refills(s) 0, Pharmacy: [facility] #[id number], 167, cm, 11/14/24 17:36:00 EST, Height/Length Dosing, 53.1, kg, 11/14/24 17:36:00 EST, Weight Dosing Start Date: 11/14/24 Status: Ordered Start: 04-08-2024 take 1 tablet by juan jose th every eight hours as needed for nausea Zofran ODT 4 mg Tab-Dis 4 mg = 1 tab(s), Oral, q8hr, PRN Nausea/Vomiting, # 12 tab(s), Refills(s) 0, Pharmacy: [facility]/pharmacy #[id number], 167, cm, 04/08/24 11:39:00 EDT, Height/Length Dosing, 77, kg, 04/08/24 11:39:00 EDT, Weight Dosing Start Date: 04/08/24 Status: Ordered Start: 03-04-2024 take 1 tablet by juan jose th every six hours as needed for nausea Zofran ODT 4 mg Tab-Dis 4 mg = 1 tab(s), Oral, q6hr, PRN Nausea/Vomiting, # 12 tab(s), Refills(s) 0, Pharmacy: [facility]/pharmacy #[id number], 167, cm, 03/04/24 9:30:00 EDT, Height/Length Dosing, 82.6, kg, 03/04/24 9:30:00 EDT, Weight Dosing Start Date: 03/04/24 Status: Ordered Start: 12-21-2023 take 1 tablet by juan jose th every eight hours Zofran ODT 4 mg Tab-Dis 4 mg = 1 tab(s), Oral, q8hr, # 12 tab(s), Refills(s) 0, Pharmacy: [facility]/pharmacy #[id number], 167, cm, 12/21/23 14:53:00 EDT, Height/Length Dosing, 85, kg, 12/21/23 14:53:00 EDT, Weight Dosing Start Date: 12/21/23 Status: Ordered Start: 01-09-2023 take 1 tablet by juan jose th every eight hours as needed for nausea Zofran ODT 4 mg Tab-Dis 4 mg = 1 tab(s), Oral, q8hr, PRN Nausea/Vomiting, # 20 tab(s), Refills(s) 0, Pharmacy: [facility] #[id number], 168, cm, 01/09/23 12:47:00 EDT, Height/Length Dosing, 93.2, kg, 01/09/23 12:47:00 EDT, Weight Dosing Start Date: 01/09/23 Status: Ordered Start: 10-27-2022 take 1 tablet by juan jose th every eight hours Zofran ODT 4 mg Tab-Dis 4 mg = 1 tab(s), Oral, q8hr, # 10 tab(s), Refills(s) 0, Pharmacy: [facility] #[id number], 168, cm, 10/27/22 0:31:00 EST, Height/Length [...] day Quantity: 0 Refills: 0 Ordered: 02-Jun-2023 Randalla Jagruti Generic Substitution Allowed Comment on above: Take 2 tablets by [facility] once daily. 2 ml fentaNYL 0.05 mg/ml [...] without obstruction or gangrene] Onset: 5 Episodic Administrative/social admission (1 source) Malingering; Translations: [Malingerer [conscious simulation]] Onset: 5 Episodic Allergic reactions (20 sources) [...] blood cell count, unspecified] Onset: 5 Chronic Headache; including migraine (1 source) Refractory migraine; [...] [Superficial mycosis, unspecified] Episodic Nausea and vomiting (7 sources) Nausea and vomiting; Translations: [Nausea with [...] sources) Vitamin A deficiency 04-13-2014 Episodic Other aftercare (2 sources) Surgical follow-up; Translations: [Encounter for follow-up examination after completed treatment for conditions other than malignant neoplasm] 01-22-2025 Episodic Other aftercare (1 source) Encounter for follow-up examination after completed treatment for conditions other than malignant neoplasm; Translations: [Follow-up examination after colorectal surgery] Onset: 5 Episodic Other complications of (1 source) Maternal [...] , unspecified, unspecified trimester] 07-04-2023 Episodic Other connective tissue disease (4 sources) Pain in bilateral legs; Translations: [Pain in right leg] 01-21-2025 Episodic Other gastrointestinal disorders (1 source) Ileostomy [...] 01-18-2024 Chronic Other gastrointestinal disorders (1 source) Encounter for attention to ileostomy; Translations: [Attention to [facility] ([facility])] Onset: 5 Chronic Other gastrointestinal disorders (1 source) History [...] the digestive system] Onset: 3 Episodic Other hereditary and degenerative nervous system conditions (4 sources) Restless legs; Translations: [Restless legs syndrome] 01-21-2025 Chronic Other injuries and conditions due to external [...] Other nervous system disorders (1 source) Chronic pain; Translations: [Other chronic pain] Onset: 5 Chronic Other nervous system disorders (2 sources) Other acute postprocedural pain; Translations: [Post-op pain] Onset: 5 Episodic Other nervous system disorders (8 sources) Postoperative pain ; Translations: [Other acute postprocedural pain] Onset: 5 01-10-2025 Episodic Other nervous system disorders (4 sources) Paresthesia; Translations: [Paresthesia of skin] 01-21-2025 Episodic Other nutritional; endocrine; and metabolic disorders (17 sources) Body mass index 30+ - obesity 02-21-2021 Chronic Other nutritional; endocrine; and metabolic disorders (17 sources) Simple obesity 02-21-2021 Chronic Other skin disorders (20 sources) Fistula 08-31-2018 Episodic Other skin disorders (20 sources) H/O: psoriasis 05-15-2016 Episodic Other skin disorders (9 sources) Impaired skin integrity 11-25-2024 Episodic Comment [...] risk factors, not elsewhere classified] 12-02-2023 Episodic Residual codes; unclassified (2 sources) Disturbance in sleep behavior; Translations: [Sleep disorder, unspecified] 01-21-2025 Episodic Respiratory failure; insufficiency; arrest (adult) (1 source) Acute respiratory failure; Translations: [Acute respiratory failure with hypoxia] Onset: 5 Episodic Septicemia (except in labor) (1 source) Sepsis; Translations: [Sepsis, unspecified organism] Onset: 5 Episodic Spondylosis; intervertebral disc disorders; other back problems (4 sources) Low back pain; Translations: [Lumbar back pain] 01-21-2025 Episodic Substance-related disorders (20 sources) Nicotine dependence, cigarettes, uncomplicated; Translations: [Smoker] Onset: 9 11-16-2021 Chronic Comment on above: Added secondary to d ocumentation in Social History. Unclassified (2 sources) ABD PAIN, HEART PALP. 18 WEEKS PREG 06-02-2023 Comment on above: ABD PAIN, HEART PALP . 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 11-22-2024 Unclassified (9 sources) Pressure injury of left buttock stage III 11-22-2024 Unclassified (9 sources) Pressure injury of right buttock stage III 11-22-2024 Unclassified (1 source) Anal fistula, unspecified; Translations: [Anal fistula, unspecified] Onset: 5 Unclassified (1 source) Crohn's disease of perianal region, with fistula (HCC); Translations: [Crohn's disease of perianal region, with fistula (HCC)] Onset: 5 Unclassified (1 source) Post Op Onset: 5 Urinary tract infections (5 sources) Urinary tract infectious disease; Translations: [Urinary tract infection, site not specified] Onset: 3 Episodic Past or Other Problems Problem Classification Problem Date Documented Date Episodic/Chronic Abdominal pain (20 sources) Unspecified abdominal pain; Translations: [Generalized abdominal pain] Onset: 09-10-2018 Resolved: 10-27-2023 11-16-2021 Episodic Comment on above: Problem List clean-u p per request of [facility]a SERRATO Cmte Acute posthemorrhagic anemia (20 sources) Acute posthemorrhagic anemia; Translations: [Acute posthemorrhagic anemia] Onset: 10-25-2023 10-27-2023 Episodic Anal and rectal conditions (10 sources) Rectal abscess ; Translations: [Rectal abscess] Onset: 06-30-2024 Episodic Contraceptive and procreative management (20 sources) Patient encounter status; Translations: [Encounter for other general counseling and advice on contraception] Onset: 08-01-2023 Resolved: 10-27-2023 08-01-2023 Episodic Epilepsy; convulsions (16 sources) Seizure; Translations: [Unspecified convulsions] Onset: 11-22-2024 Episodic Fluid and electrolyte disorders (20 sources) [...] Test Name Value Interpretation Reference Range Facility [facility] 03-02-2025 CNPN Telephone ([facility]) ROLA AGUILAR ([id number]) 1995 F CHT Date Time Provider Department 03/02/[address] [facility] During your visit today, we recorded the following information about you: Solis Flores RN 03/02/2025 12:06 PM Signed Called her again. No answer. Left another voice message informing her that she needs to contact the office to schedule an appointment as soon as possible for a dressing change and wound measurement. She also still needs to complete the wound vac form to possibly help her qualify for a free wound vac. Informed her that she was sent my chart messages as well regarding this information. Waiting on a return call. Allergies As of Date: 03/02/2025 Noted Allergy Reaction HYDROMORPHONE 05/26/2023 9 - Itching Date Reviewed: 02/19/2025 Reviewed by: Nellie Liriano MA - Fully Assessed Reason for Visit: Care Coordination [3491] Cmt: Missed office appointment Prescriptions as of 03/02/2025 - gabapentin (NEURONTIN) 100 mg capsule Take 100 mg by mouth daily at bedtime. - methocarbamol (ROBAXIN) 500 mg tablet Take 1 tablet by mouth every 12 hours as needed. - Bacillus coagulan-calcium carb (DIGESTIVE ADVANTAGE PROBIOTIC) 2 billion cell- 140 mg cap Take 1 capsule by mouth once daily. - acetaminophen (TYLENOL) 500 mg tablet Take 2 tablets by mouth every 6 hours. - busPIRone (BUSPAR) 10 mg tablet Take 10 mg by mouth three times a day. - levETIRAcetam (KEPPRA) 500 mg tablet Take 500 mg by mouth two times a day. - Magnesium 200 mg tab Take 200 mg by mouth once daily. - dicyclomine HCl (BENTYL ORAL) - KEPPRA [...] 11pm the evening prior to surgery. - vedolizumab (ENTYVIO PEN) 108 mg/0.68 mL pen Inject 108mg (1 pen) subcutaneously every other week. - vedolizumab (ENTYVIO PEN) 108 mg/0.68 mL pen Inject 108 mg (1 pen) subcutaneously every other week. Problem List As Of Date 03/02/2025 Noted Resolved Crohn's disease (regional enteritis) (HCC) [K50*08/22/2018 02/04/2023 Abdominal pain [R10.9] 09/10/2018 01/21/2023 Hypomagnesemia [E83.42] 09/11/2018 09/12/2018 Hyponatremia [E87.1] 09/11/2018 09/12/2018 Perineal abscess [L02.215] 09/09/2018 Severe protein-calorie malnutrition (HCC) [E43] 09/11/2018 Hypokalemia [E87.6] 09/12/2018 Crohn's colitis (HCC) [K50.10] 09/09/2018 02/04/2023 Obesity, Class II, BMI 35-39.9 [E66.812] 08/26/2020 12/24/2024 History of creation of ostomy (HCC) [Z93.9] 01/22/2021 Crohn's disease of colon with complication (HCC*01/17/2023 History of endoscopy [Z98.890] 02/04/2023 07/04/2023 Imaging of gastrointestinal tract abnormal [R93*02/04/2023 13 weeks gestation of [Z3A.13] 04/30/2023 07/04/2023 Maternal Crohn's disease affecting in*04/30/2023 10/24/2023 Obesity, Class I, BMI 30-34.9 [E66.811] 05/01/2023 12/24/2024 Anxiety and depression [F41.9, F32.A] 07/04/2023 Abdominal [...] [Z93.2] 01/18/2024 Generalized abdominal pain [R10.84] 01/20/2024 Crohn's colitis, unspecified complication (HCC)*12/17/2024 Generalized seizures (HCC) [R56.9] 11/22/2024 Anemia [D64.9] 12/24/2024 Crohn disease of colon and rectum (HCC) [K50.10]01/08/2025 Post-op pain [G89.18] 12/23 (more content not included)... Normal [facility] CNPNon 02-25-2025 CNPN Telephone ([facility]) ROLA AGUILAR ([id number]) 1995 F CHT Date Time Provider Department 02/25/[address] [facility] During your visit today, we recorded the following information about you: Solis Flores RN 02/25/2025 1:56 PM Signed 1131 am: called patient since she still has not arrived for her appointment for education on dressing change. No answer. Left voice message to call the office back. Then called her mother. No answer. Left a voice message to call the office back since her daughter missed her appointment. Waiting on a return call to reschedule her appointment and discuss the form that she still has not completed that could qualify her for a wound vac for her wound. Allergies As of Date: 02/25/2025 Noted Allergy Reaction HYDROMORPHONE 05/26/2023 9 - Itching Date Reviewed: 02/19/2025 Reviewed by: Nellie Liriano MA - Fully Assessed Reason for Visit: Care Coordination [1621] Cmt: NO SHOW appointment Prescriptions as of 02/25/2025 - gabapentin (NEURONTIN) 100 mg capsule Take 100 mg by mouth daily at bedtime. - methocarbamol (ROBAXIN) 500 mg tablet Take 1 tablet by mouth every 12 hours as needed. - Bacillus coagulan-calcium carb (DIGESTIVE ADVANTAGE PROBIOTIC) 2 billion cell- 140 mg cap Take 1 capsule by mouth once daily. - acetaminophen (TYLENOL) 500 mg tablet Take 2 tablets by mouth every 6 hours. - busPIRone (BUSPAR) 10 mg tablet Take 10 mg by mouth three times a day. - levETIRAcetam (KEPPRA) 500 mg tablet Take 500 mg by mouth two times a day. - Magnesium 200 mg tab Take 200 mg by mouth once daily. - dicyclomine HCl (BENTYL ORAL) - KEPPRA [...] 11pm the evening prior to surgery. - vedolizumab (ENTYVIO PEN) 108 mg/0.68 mL pen Inject 108mg (1 pen) subcutaneously every other week. - vedolizumab (ENTYVIO PEN) 108 mg/0.68 mL pen Inject 108 mg (1 pen) subcutaneously every other week. Problem List As Of Date 02/25/2025 Noted Resolved Crohn's disease (regional enteritis) (HCC) [K50*08/22/2018 02/04/2023 Abdominal pain [R10.9] 09/10/2018 01/21/2023 Hypomagnesemia [E83.42] 09/11/2018 09/12/2018 Hyponatremia [E87.1] 09/11/2018 09/12/2018 Perineal abscess [L02.215] 09/09/2018 Severe protein-calorie malnutrition (HCC) [E43] 09/11/2018 Hypokalemia [E87.6] 09/12/2018 Crohn's colitis (HCC) [K50.10] 09/09/2018 02/04/2023 Obesity, Class II, BMI 35-39.9 [E66.812] 08/26/2020 12/24/2024 History of creation of ostomy (HCC) [Z93.9] 01/22/2021 Crohn's disease of colon with complication (HCC*01/17/2023 History of endoscopy [Z98.890] 02/04/2023 07/04/2023 Imaging of gastrointestinal tract abnormal [R93*02/04/2023 13 weeks gestation of [Z3A.13] 04/30/2023 07/04/2023 Maternal Crohn's disease affecting in*04/30/2023 10/24/2023 Obesity, Class I, BMI 30-34.9 [E66.811] 05/01/2023 12/24/2024 Anxiety and depression [F41.9, F32.A] 07/04/2023 Abdominal [...] [Z93.2] 01/18/2024 Generalized abdominal pain [R10.84] 01/20/2024 Crohn's colitis, unspecified complication (HCC)*12/17/2024 Generalized seizures (HCC) [R56.9] 11/22/2024 Anemia [D64.9] 12/24/2024 Crohn disease of colon and rectum (HCC) [K50.10]01/09/20 (more content not included)... Normal [facility] CNOVon 02-19-2025 [facility] Office Visit ([facility]) ROLA AGUILAR ([id number]) 1995 F T Date Time Provider Department 02/19/25 9:00 AM SHAQ THAKKAR [facility] During your visit today, we recorded the following information about you: Temperature Pulse Blood pressure Weight 98 degrees 71/minute 106/66 56 kg Shaq Thakkar MD 02/23/2025 10:00 AM Signed COLORECTAL SURGERY February 19, 2025 Rola Aguilar 29 year old Chief Complaint: follow up History of Present Illness: Rola Aguilar is a 29 year old female with a history of Crohn's disease, presents to the office for a follow up evaluation after undergoing a Laparoscopic total proctocolectomy, removal of the terminal ileum with an end ileostomy, right colon, mid colon, left colon, sigmoid colon, rectum. 22 modifier for requiring a perineal proctectomy and abdominoperineal resection from below on 01/08/25 for severe perianal complex fistulizing Crohn's nonhealing decubitus wound. She was last seen in the office with Thao Conte [employer] on 01/22/25 which was notable for superficial wound dehiscence of the perineum. Items to Follow up from Thao Conte ON 01/22/25: - Evaluate abdominal and perineal healing - Discuss ostomy care and supplies - 1 month follow up with Dr. Thakkar for suture removal Today she notes that she feels well, has been eating without issue and the stoma is functioning well. PAST MEDICAL HISTORY Diagnosis Date Crohn's disease [...] Current Outpatient Medications Medication Sig Dispense Refill gabapentin (NEURONTIN) 100 mg capsule Take 100 mg by mouth daily at bedtime. enoxaparin (LOVENOX) 40 mg/0.4 mL Inject 0.4 mL subcutaneously once daily for 21 days. 8.4 mL 0 methocarbamol (ROBAXIN) 500 mg tablet Take 1 tablet by mouth every 12 hours as needed. 10 tablet 0 Bacillus coagulan-calcium carb (DIGESTIVE ADVANTAGE PROBIOTIC) 2 billion cell- 140 mg cap Take 1 capsule by mouth once daily. 30 capsule 0 acetaminophen (TYLENOL) 500 mg tablet Take 2 tablets by mouth every 6 hours. 50 tablet 0 busPIRone (BUSPAR) 10 mg tablet Take 10 mg by mouth three times a day. levETIRAcetam (KEPPRA) 500 mg tablet Take 500 mg by mouth two times a day. Magnesium 200 mg tab Take 200 mg by mouth once daily. dicyclomine HCl (BENTYL ORAL) KEPPRA 250 mg tablet Take 500 mg by mouth. ondansetron orally disintegrating (ZOFRAN ODT) 4 mg disintegrating tablet take 1 tablet by mouth every 8 hours as needed for nausea and vomiting promethazine (PHENERGAN) 25 mg tablet Take 25 mg by mouth. busPIRone (BUSPAR) 10 mg tablet metroNIDAZOLE (FLAGYL) 500 mg tablet Take 1 tablet by mouth three times a day. Take 1 tablet at 6pm, 7pm, and 11pm, the evening prior to surgery. 3 tablet 0 neomycin 500 mg tablet Take 2 tablets by mouth as directed. Take 2 tablet at 6pm, 7pm, and 11pm the evening prior to surgery. 6 tablet 0 vedolizumab (ENTYVIO PEN) 108 mg/0.68 mL [...] Other Difficulty with anesthesia No Family History Social History Tobacco Use Smoking status: Former Current packs/day: 0.50 Types: Cigarettes Smokeless tobacco: Never Tobacco comments: 3 per day Vaping Use Vaping status: Never Used Substance Use Topics Alcohol use: Not Currently Comment: 1 per week Drug use: No Physical Exam: [facility] 06/29/2024 (Approximate) General Appearance: Well appearing, alert, in no acute distress, well-hydrated, well nourished. Abdomen: soft ND NT Anorectal: External exam reveals: separation of the perineal wound with large cavitary wound with granulation tissue in the wound bed and serous drainage from the wound. Seton in place. Areas of excoriation and pyoderma surrounding. Photo uploaded in chart. see below Executive Asst present: yes The sensitive exami (more content not included)... Normal [facility] CNOVon 01-22-2025 [facility] Office Visit ([facility] ) ROLA AGUILAR ([id number]) 1995 F [facility] Date Time Provider Department 01/22/25 9:00 AM ANAND CONTE During your visit today, we recorded the following information about you: Anand Conte APRN.CNP 01/22/2025 3:41 PM Signed COLORECTAL SURGERY January 22, 2025 Rola Aguilar 29 year old Recording using [employer] software for draft documentation of the visit was discussed with the patient/authorized outreach representative; all questions welcomed and answered. Patient/authorized outreach representative agreed to proceed Chief Complaint: post operative follow up History of Present Illness: Patient is a 29-year-old female with a history of Crohn's disease, presenting for follow-up two weeks post-surgery involving the removal of diseased portions of the colon, rectum, and anus, and the relocation of her ileostomy. Patient has been managing Crohn's disease for over 10 years and has undergone two ileostomy surgeries. The first ileostomy was a diversion without resection, while the recent surgery involved the removal of diseased portions of the colon, rectum, and anus, and the relocation of the ileostomy. Prior to the recent surgery, patient had a severely prolapsed stoma, which she managed for an extended period. Since returning home, patient reports soreness, particularly in the perineal area, which makes sitting uncomfortable. She notes significant drainage from the perineal region, which she describes as bloody. She also has a drain in her abdomen near the ileostomy site. She denies experiencing fevers or chills since returning home. She is using the same stoma supplies as before the surgery and reports that managing the new stoma site has been easier than dealing with the previous prolapsed stoma. However, she notes that the new stoma location near her hip requires some adjustment. She is using a convex pouch due to significant weight loss over the past year, approximately 100 pounds, and currently weighs 109 pounds. She reports that her appetite has decreased, and she feels palomares faster. She is consuming small, frequent meals throughout the day. Patient is not currently on any medications for Crohn's disease. She was previously on Entyvio (vedolizumab), which she discontinued due to lack of efficacy and recurrent infections. She has a follow-up appointment with her IBD specialist, Dr. Kaye, on July 23 to discuss potential new treatments, including Rinvoq (upadacitinib) and methotrexate. She has not yet followed up with her GI doctor, Dr. Bhardwaj, since the procedure. Past Diagnostic Results: - Surgery (2 weeks ago): Removal of diseased portions of the colon, rectum, and anus, and relocation of ileostomy. PAST MEDICAL HISTORY Diagnosis Date Crohn's disease [...] Current Outpatient Medications Medication Sig Dispense Refill gabapentin (NEURONTIN) 100 mg capsule Take 100 mg by mouth daily at bedtime. enoxaparin (LOVENOX) 40 mg/0.4 mL Inject 0.4 mL subcutaneously once daily for 21 days. 8.4 mL 0 Bacillus coagulan-calcium carb (DIGESTIVE ADVANTAGE PROBIOTIC) 2 billion cell- 140 mg cap Take 1 capsule by mouth once daily. 30 capsule 0 acetaminophen (TYLENOL) 500 mg tablet Take 2 tablets by mouth every 6 hours. 50 tablet 0 levETIRAcetam (KEPPRA) 500 mg tablet Take 500 mg by mouth two times a day. Magnesium 200 mg tab Take 200 mg by mouth once daily. ondansetron orally disintegrating (ZOFRAN ODT) 4 mg disintegrating tablet take 1 tablet by mouth every 8 hours as needed for nausea and vomiting promethazine (PHENERGAN) 25 mg tablet Take 25 mg by mouth. methocarbamol (ROBAXIN) 500 mg tablet Take 1 tablet by mouth every 12 hours as needed. 10 tablet 0 busPIRone (BUSPAR) 10 mg tablet Take 10 mg by mouth three times a day. dicyclomine HCl (BENTYL ORAL) KEPPRA 250 mg tablet Take 500 mg by mouth. busPIRone (BUSPAR) 10 mg tablet metroNIDAZOLE (FLAGYL) 500 mg tablet Take 1 tablet by mouth three times a day. Take 1 tablet at 6pm, 7pm, and 11pm, the evening prior to surgery. 3 tablet 0 neomycin 500 mg tablet Take 2 tablets by mouth as directe (more content not included)... [facility] ROLA AGUILAR ([id number]) 1995 F [facility] Date Time Provider Department 01/20/25 HEIDI NAIK [facility] During your visit today, we recorded the following information about you: Ellen Cervantes RN 01/20/2025 1:55 PM Signed Phoned patient and gave her the below message. The patient expressed understanding. This is [facility] office calling with an appointment reminder. You are scheduled with Dr. Naik on 02/05/2025 at 11:30 am, with an arrival time of 11:15 am. At [facility] building room 525. -Please be advised of the following prior to your upcoming visit: -Please log into My-Chart and fill in the Pain questionnaires attached to the pre-visit as this is important to expedite your treatment plan. -Dr. Naik is an interventional pain management provider and does not take over Opioid/Narcotic pain medication regimen. -The appointment will be for consultation, any further recommendations will be provided at the end of the visit. Certain injections will require insurance approval and will be scheduled after insurance approval. -If you have been evaluated by [facility] Provider within the last 3 years , you will need to contact their offices to address switching care if recommended. -Please bring any outside medical records to your appointment if they are not updated into the [facility] System. If you have any question regarding your appointment , please contact the office appointment desk directly to discuss. ( [facility]: [phone]) Allergies As of Date: 01/20/2025 Noted Allergy Reaction HYDROMORPHONE 05/26/2023 9 - Itching Date Reviewed: 01/14/2025 Reviewed by: Nena Guerrero, RN - Fully Assessed Prescriptions as of 01/20/2025 - oxyCODONE IR (ROXICODONE) 5 mg immediate release tablet Take 1 tablet by mouth every 6 hours as needed for pain for up to 7 days. - enoxaparin (LOVENOX) 40 mg/0.4 mL Inject 0.4 mL subcutaneously once daily for 21 days. - methocarbamol (ROBAXIN) 500 mg tablet Take 1 tablet by mouth every 12 hours as needed. - Bacillus coagulan-calcium carb (DIGESTIVE ADVANTAGE PROBIOTIC) 2 billion cell- 140 mg cap Take 1 capsule by mouth once daily. - acetaminophen (TYLENOL) 500 mg tablet Take 2 tablets by mouth every 6 hours. - busPIRone (BUSPAR) 10 mg tablet Take 10 mg by mouth three times a day. - levETIRAcetam (KEPPRA) 500 mg tablet Take 500 mg by mouth two times a day. - Magnesium 200 mg tab Take 200 mg by mouth once daily. - dicyclomine HCl (BENTYL ORAL) - KEPPRA [...] 11pm the evening prior to surgery. - vedolizumab (ENTYVIO PEN) 108 mg/0.68 mL pen Inject 108mg (1 pen) subcutaneously every other week. - vedolizumab (ENTYVIO PEN) 108 mg/0.68 mL pen Inject 108 mg (1 pen) subcutaneously every other week. Problem List As Of Date 01/20/2025 Noted Resolved Crohn's disease (regional enteritis) (HCC) [K50*08/22/2018 02/04/2023 Abdominal pain [R10.9] 09/10/2018 01/21/2023 Hypomagnesemia [E83.42] 09/11/2018 09/12/2018 Hyponatremia [E87.1] 09/11/2018 09/12/2018 Perineal abscess [L02.215] 09/09/2018 Severe protein-calorie malnutrition (HCC) [E43] 09/11/2018 Hypokalemia [E87.6] 09/12/2018 Crohn's colitis (HCC) [K50.10] 09/09/2018 02/04/2023 Obesity, Class II, BMI 35-39.9 [E66.812] 08/26/2020 12/24/2024 History of creation of ostomy (HCC) [Z93.9] 01/22/2021 Crohn's disease of colon with complication (HCC*01/17/2023 History of endoscopy [Z98.890] 02/04/2023 07/04/2023 Imaging of gastrointestinal tract abnormal [R93*02/04/2023 13 weeks gestation of [Z3A.13] 04/30/2023 07/04/2023 Maternal Crohn's disease affecting in*04/30/2023 10/24/2023 Obesity, Class I, BMI 30-34.9 [E66.811] 05/01/2023 12/24/2024 Anxiety and depression [F41.9, F32.A] 07/04/2023 Abdominal pain affecting [O26.899, R1*07/26/2023 10/27/2023 25 weeks gestation of [Z3A.25] 07/27/2023 08/01/2023 General counseling and advice for contraceptive* 023 10/24/2023 Abdominal pain [R10.9] 08/19/2023 10/27/2023 Crohn's disease of small and large intestines w*08/20/2023 Crohn's disease of large intestine without comp*08/21/2023 Maternal Crohn's disease affecting in*08/23/2023 10/24/2023 29 weeks gestation of [Z3A.29] 08/23/2023 09/05/2023 Anemia du (more content not included)... Normal [facility] Basic metabolic 2000 panelon 01-14-2025 Anion gap [Moles/Vol] 14 mmol/L Normal 8-15 [facility] Comment on above: Order Comment: Speci men Type: BLOOD SPECIMEN Ordering Facility: [facility] Address: [address] [place] [address] Performed By: #### 2 4321-2, #### [facility] CLIA [id number] [address] [place] [address] [place] Calcium [Mass/Vol] 8.4 mg/dL Low 8.5-10.2 [facility] Comment on above: Order Comment: Speci men Type: BLOOD SPECIMEN Ordering Facility: [facility] Address: [address] [place] [address] Performed By: #### 2 432-2, #### [facility] CLIA [id number] [address] [place] [address] [place] Chloride [Moles/Vol] 102 mmol/L Normal 98-107 [facility] Comment on above: Order Comment: Speci men Type: BLOOD SPECIMEN Ordering Facility: [facility] Address: [address] [place] [address] Performed By: #### 2 4321-2, #### [facility] CLIA [id number] [address] [place] [address] [place] CO2 [Moles/Vol] 23 mmol/L Normal 22-30 [facility] Comment on above: Order Comment: Speci men Type: BLOOD SPECIMEN Ordering Facility: [facility] Address: [address] [place] [address] Performed By: #### 2 432-2, #### [facility] CLIA [id number] [address] [place] [address] [place] Creatinine [Mass/Vol] 0.42 mg/dL Low 0.58-0.96 [facility] Comment on above: Order Comment: Speci men Type: BLOOD SPECIMEN Ordering Facility: [facility] Address: [address] [place] [address] Performed By: #### 2 4321-2, 61565-0 #### [facility] CLIA [id number] [place] [id number] [place] Creatinine and Glomerular filtration rate.predicted panel (S/P/Bld) 136 mL/min/1.73m??? Normal >=60 [facility] Comment on above: Order Comment: [place]a [place] rio Type: BLOOD SPECIMEN Ordering Facility: [facility] Address: [address] [place] [address] Result Comment: Alysha mated Glomerular Filtration Rate [...] reflect actual GFR. Performed By: #### 2 4321-, 37965-0 #### [facility] CLIA [id number] [place] [address] [place] Glucose [Mass/Vol] 81 mg/dL Normal 74-99 [facility] Comment on above: Order Comment: [place]a [place] Type: BLOOD SPECIMEN Ordering Facility: [facility] Address: [address] [place] [address] Result Comment: The [place] Diabetes Association (ADA) provides guidance for cutoff [...] Standards of Medical Care in Diabetes 2016, [place] [employer]. Diabetes Care. 2016.39(Suppl 1). Performed By: #### 2 4321-2, #### [facility] CLIA [id number] [place] [address] [place] Potassium [Moles/Vol] 4.4 mmol/L Normal 3.7-5.1 [facility] Comment on above: Order Comment: Speci men Type: BLOOD SPECIMEN Ordering Facility: [facility] Address: [address] [place] [address] Performed By: #### 2 4321-2, #### [facility] CLIA [id number] [address] [place] [address] [place] Sodium [Moles/Vol] 139 mmol/L Normal 136-144 [facility] Comment on above: Order Comment: Speci men Type: BLOOD SPECIMEN Ordering Facility: [facility] Address: [address] [place] [address] Performed By: #### 2 4321-2, #### [facility] CLIA [id number] [address] [place] [address] [place] Urea nitrogen [Mass/Vol] 6 mg/dL Low 7-21 [facility] Comment on above: Order Comment: Speci men Type: BLOOD SPECIMEN Ordering Facility: [facility] Address: [address] [place] [address] Performed By: #### 2 4321-2, #### [facility] CLIA [id number] [address] [place] [address] [place] CBC panel Auto (Bld)on 01-14 Erythrocyte distribution width (RBC) [Ratio] 16.3 % High 11.5-15.0 [facility] Comment on above: Order Comment: Speci men Type: BLOOD SPECIMEN Ordering Facility: [facility] Address: [address] [place] [address] Performed By: #### 5 8410-2 #### [facility] CLIA [id number] [address] [place] [address] [place] Hematocrit (Bld) [Volume fraction] 33.3 % Low 36.0-46.0 [facility] Comment on above: Order Comment: Speci men Type: BLOOD SPECIMEN Ordering Facility: [facility] Address: [address] [place] [address] Performed By: #### 5 8410-2 #### [facility] CLIA [id number] [address] [place] [address] [place] Hemoglobin (Bld) [Mass/Vol] 10.2 g/dL Low 11.5-15.5 [facility] Comment on above: Order Comment: Speci men Type: BLOOD SPECIMEN Ordering Facility: [facility] Address: [address] [place] [address] Performed By: #### 5 8410-2 #### [facility] CLIA [id number] [address] [place] [address] [place] MCH (RBC) [Entitic mass] 27.6 pg Normal 26.0-34.0 [facility] Comment on above: Order Comment: Speci men Type: BLOOD SPECIMEN Ordering Facility: [facility] Address: [address] [place] [address] Performed By: #### 5 8410-2 #### [facility] CLIA [id number] [address] [place] [address] [place] MCHC (RBC) [Mass/Vol] 30.6 g/dL Normal 30.5-36.0 [facility] Comment on above: Order Comment: Speci men Type: BLOOD SPECIMEN Ordering Facility: [facility] Address: [address] [place] [address] Performed By: #### 5 8410-2 #### [facility] CLIA [id number] [address] [place] [address] [place] MCV (RBC) [Entitic vol] 90.0 fL Normal 80.0-100.0 [facility] Comment on above: Order Comment: Speci men Type: BLOOD SPECIMEN Ordering Facility: [facility] Address: [address] [place] [address] Performed By: #### 5 8410-2 #### [facility] CLIA [id number] [address] [place] [address] [place] Nucleated RBC (Bld) [#/Vol] 10*3/uL Normal <0.01 [facility] Comment on above: Order Comment: Speci men Type: BLOOD SPECIMEN Ordering Facility: [facility] Address: [address] [place] [address] Performed By: #### 5 8410-2 #### [facility] CLIA [id number] [place] [address] [place] Platelet mean volume (Bld) [Entitic vol] 9.1 fL Normal 9.0-12.7 [facility] Comment on above: Order Comment: Speci men Type: BLOOD SPECIMEN Ordering Facility: [facility] Address: [address] [place] [address] Performed By: #### 5 8410-2 #### [facility] CLIA [id number] [address] [place] [address] [place] Platelets (Bld) [#/Vol] 475 10*3/uL High 150-400 [facility] Comment on above: Order Comment: Speci men Type: BLOOD SPECIMEN Ordering Facility: [facility] Address: [address] [place] [address] Performed By: #### 5 8410-2 #### [facility] CLIA [id number] [address] [place] [address] [place] RBC (Bld) [#/Vol] 3.70 10*6/uL Low 3.90-5.20 [facility] Comment on above: Order Comment: Speci men Type: BLOOD SPECIMEN Ordering Facility: [facility] Address: [address] [place] [address] Performed By: #### 5 8410-2 #### [facility] CLIA [id number] [address] [place] [address] [place] WBC (Bld) [#/Vol] 6.01 10*3/uL Normal 3.70-11.00 [facility] Comment on above: Order Comment: Speci men Type: BLOOD SPECIMEN Ordering Facility: [facility] Address: [address] [place] [address] Performed By: #### 5 8410-2 #### [facility] [id number] [facility] CNDSon 01-14-2025 CN HNO ID: [id number] Author: SHAQ THAKKAR MD Service: Colorectal Author Type: Resident Type: Discharge Summary Filed: 01/14/2025 08:24 Note Text: Attestation signed by Shaq Thakkar MD at 01/14/2025 8:24 AM dc GENERAL SURGERY DISCHARGE SUMMARY PATIENT NAME: Rola Aguilar ADMISSION DATE: 01/08/2025 DISCHARGE DATE: 01/14/2025 ATTENDING PHYSICIAN: Shaq Thakkar, * Code Status: Prior Highest Readmission Risk Score: 27 The 30 day readmissions risk score is derived from an internally validated risk model which evaluates patient level characteristics, utilization history, medication orders and lab results up until the day of discharge. Patients with a score of 39 or above are considered highest risk for readmission. Specific patient level drivers will be listed at the bottom of the summary. REASON FOR HOSPITALIZATION: (K50.119) Crohn's colitis, unspecified complication (HCC) (primary encounter diagnosis) Plan: oxyCODONE IR (ROXICODONE) 5 mg immediate release tablet (K50.113, K60.30) Crohn's disease of perianal region, with fistula (HCC) Plan: SURGICAL PATHOLOGY, SURGICAL PATHOLOGY, oxyCODONE IR (ROXICODONE) 5 mg immediate release tablet, CANCELED: SURGICAL PATHOLOGY, CANCELED: SURGICAL PATHOLOGY (G89.18) Post-op pain Plan: oxyCODONE IR (ROXICODONE) 5 mg immediate release tablet (K50.10) Crohn's disease of large intestine without complication (HCC) Plan: oxyCODONE IR (ROXICODONE) 5 mg immediate release tablet (K50.819) Crohn's disease of small and large intestines with complication (HCC) Plan: oxyCODONE IR (ROXICODONE) 5 mg immediate release tablet (L02.215) Perineal abscess Plan: oxyCODONE IR (ROXICODONE) 5 mg immediate release tablet OPERATIONS DURING HOSPITALIZATION: Procedure(s) (LRB): LAPAROSCOPIC PROCTECTOMY COMPLETE W/ ABDOMINOPERINEAL W/ COLOSTOMY (N/A) PROCEDURES DURING HOSPITALIZATION: N/A HOSPITAL COURSE: Ms. Aguilar is a 29 yo F s/p Lap total proctocolectomy with APR for crohn's proctocolitis and severe perianal CD on 01/08. Recovering appropriately, in all aspects other than pain control Please refer to operative note for further details. Patient tolerated the procedure well and was transferred to the [facility] [place] [facility] for further observation. By POD5, patient was able to tolerate a solid diet without nausea/vomiting, have return of bowel function, ambulate at baseline mobility, and void independently. Patient was evaluated as stable and discharged home. Patient was amenable to this plan. Active Hospital Problems Diagnosis Date Noted Crohn disease of colon and rectum (HCC) 01/08/2025 Post-op pain 01/10/2025 Severe protein-calorie malnutrition (HCC) 09/11/2018 Resolved Hospital Problems No resolved problems to display. Malnutrition Diagnosis supported by Registered Dietitian:Severe Protein-Calorie Malnutrition Based on: Unintentional Weight Loss, Insufficient Energy Intake, Muscle Loss Assessment: I have reviewed the result of the malnutrition assessment and plan and agree Plan: Diet, Supplements, Diet Education, Medications Transitions of Care Critical Issues: Follow up in clinic for post operative appointment LABS AND PROCEDURES PENDING AT DISCHARGE: No pending results. PATIENT CONDITION AT DISCHARGE: Stable DISCHARGE DISPOSITION: Home INFORMATION PROVIDED TO PATIENT: See DCI DIET: See DCI ACTIVITY: See DCI WOUND/SURGICAL SITE CARE: See DCI ALLERGIES Allergen Reactions Hydromorphone Itching DISCHARGE MEDICATION: Medication List START taking these medications CULTURELLE 10 billion cell capsule Generic drug: lactobacillus rhamnosus Take 1 capsule by mouth once daily. enoxaparin 40 mg/0.4 mL Commonly known as: LOVENOX Inject 0.4 mL subcutaneously once daily for 21 days. Start taking on: January 15, 2025 methocarbamol 500 mg tablet Commonly known as: ROBAXIN Take 1 tablet by mouth every 12 hours as needed. oxyCODONE IR 5 mg immediate release tablet Commonly known as: ROXICODONE Take 1 tablet by mouth every 6 hours as needed for pain for up to 7 days. CONTINUE taking these medications acetaminophen 500 mg tablet Commonly known as: TYLENOL Take 2 tablets by mouth every 6 hours. BENTYL ORAL * busPIRone 10 mg tablet Commonly known as: BUSPAR * busPIRone 10 mg tablet Commonly known as: BUSPAR * ENTYVIO PEN 108 mg/0.68 mL pen Generic drug: vedolizumab Inject 108 mg (1 pen) subcutaneously every other week. * vedolizumab 108 mg/0.68 mL pen Commonly known as: ENTYVIO PEN Inject 108mg (1 pen) subcutaneously every other week. * KEPPRA 250 mg tablet Generic drug: levETIRAcetam * levETIRAcetam 500 mg tablet Commonly known as: KEPPRA Magnesium 200 mg Tab metroNIDAZOLE 500 mg tablet Commonly known as: FLAGYL Ta (more content not included)... Normal [facility] Magnesium SerPl-mCncon 01-14 Magnesium [Mass/Vol] 1.9 mg/dL Normal 1.7-2.3 [facility] Comment on above: Order Comment: Speci men Type: BLOOD SPECIMEN Ordering Facility: [facility] Address: [address] [place] [address] Performed By: #### 2 4321-2, #### [facility] CLIA [id number] [address] [place] [address] [place] Basic metabolic 2000 panelon 01-13-2025 Anion gap [Moles/Vol] 14 mmol/L Normal 8-15 [facility] Comment on above: Order Comment: Speci men Type: BLOOD SPECIMEN Ordering Facility: [facility] Address: [address] [place] [address] Performed By: #### 2 777-1, 80206-7, #### [facility] CLIA [id number] [place] [address] [place] Calcium [Mass/Vol] 8.1 mg/dL Low 8.5-10.2 [facility] Comment on above: Order Comment: Speci men Type: BLOOD SPECIMEN Ordering Facility: [facility] Address: [address] [place] [address] Performed By: #### 2 777-1, 14746-9, #### [facility] CLIA [id number] [address] [place] [address] [place] Chloride [Moles/Vol] 99 mmol/L Normal 98-107 [facility] Comment on above: Order Comment: Speci men Type: BLOOD SPECIMEN Ordering Facility: [facility] Address: [address] [place] [address] Performed By: #### 2 777-1, , #### [facility] CLIA [id number] [address] [place] [address] [place] CO2 [Moles/Vol] 25 mmol/L Normal 22-30 [facility] Comment on above: Order Comment: Speci men Type: BLOOD SPECIMEN Ordering Facility: [facility] Address: [address] [place] [address] Performed By: #### 2 777-1, , #### [facility] CLIA [id number] [address] [place] [address] [place] Creatinine [Mass/Vol] 0.43 mg/dL Low 0.58-0.96 [facility] Comment on above: Order Comment: Speci men Type: BLOOD SPECIMEN Ordering Facility: [facility] Address: [address] [place] [address] Performed By: #### 2 777-1, , #### [facility] CLIA [id number] [address] [place] [address] [place] Creatinine and Glomerular filtration rate.predicted panel (S/P/Bld) 135 mL/min/1.73m??? Normal >=60 [facility] Comment on above: Order Comment: [place] Type: BLOOD SPECIMEN Ordering Facility: [facility] Address: [address] [place] [address] Result Comment: Alysha mated Glomerular Filtration Rate [...] reflect actual GFR. Performed By: #### 2 777-1, 52750-5, #### [facility] CLIA [id number] [place], [place] [address] [place] Glucose [Mass/Vol] 94 mg/dL Normal 74-99 [facility] Comment on above: Order Comment: [place] Type: BLOOD SPECIMEN Ordering Facility: [facility] Address: [address] [place] [address] Result Comment: The [place] Diabetes Association (ADA) provides guidance for cutoff [...] Standards of Medical Care in Diabetes 2016, [place] Diabetes [employer]. Diabetes Care. 2016.39(Suppl 1). Performed By: #### 2 777-1, 80464-5, #### [facility] CLIA [id number] [place], [place] [address] [place] Potassium [Moles/Vol] 4.7 mmol/L Normal 3.7-5.1 [facility] Comment on above: Order Comment: [place]o Type: BLOOD SPECIMEN Ordering Facility: [facility] Address: [address] [place] [address] Performed By: #### 2 777-1, 38952-8, #### [facility] CLIA [id number] [address] [place], [place] [address] [place] Sodium [Moles/Vol] 138 mmol/L Normal 136-144 [facility] Comment on above: Order Comment: Speci men Type: BLOOD SPECIMEN Ordering Facility: [facility] Address: [address] [place] [address] Performed By: #### 2 777-1, , #### [facility] CLIA [id number] [address] [place] [address] [place] Urea nitrogen [Mass/Vol] 8 mg/dL Normal 7-21 [facility] Comment on above: Order Comment: Speci men Type: BLOOD SPECIMEN Ordering Facility: [facility] Address: [address] [place] [address] Performed By: #### 2 777-1, , #### [facility] CLIA [id number] [address] [place] [address] [place] CBC panel Auto (Bld)on 01-13 Erythrocyte distribution width (RBC) [Ratio] 17.0 % High 11.5-15.0 [facility] Comment on above: Order Comment: Speci men Type: BLOOD SPECIMEN Ordering Facility: [facility] Address: [address] [place] [address] Performed By: #### 2 777-1, , #### [facility] CLIA [id number] [address] [place] [address] [place] Hematocrit (Bld) [Volume fraction] 33.7 % Low 36.0-46.0 [facility] Comment on above: Order Comment: Speci men Type: BLOOD SPECIMEN Ordering Facility: [facility] Address: [address] [place] [address] Performed By: #### 2 777-1, , #### [facility] CLIA [id number] [address] [place] [address] [place] [facility] [place] Hemoglobin (Bld) [Mass/Vol] 10.5 g/dL Low 11.5-15.5 [facility] Comment on above: Order Comment: Speci men Type: BLOOD SPECIMEN Ordering Facility: [facility] Address: [address] [place] [address] Performed By: #### 2 777-1, 05182-8, #### [facility] CLIA [id number] [address] [place] [address] [place] MCH (RBC) [Entitic mass] 27.7 pg Normal 26.0-34.0 [facility] Comment on above: Order Comment: Speci men Type: BLOOD SPECIMEN Ordering Facility: [facility] Address: [address] [place] [address] Performed By: #### 2 777-1, 81329-9, #### [facility] CLIA [id number] [address] [place] [address] [place] MCHC (RBC) [Mass/Vol] 31.2 g/dL Normal 30.5-36.0 [facility] Comment on above: Order Comment: Speci men Type: BLOOD SPECIMEN Ordering Facility: [facility] Address: [address] [place] [address] Performed By: #### 2 777-1, , #### [facility] CLIA [id number] [address] [place] [address] [place] MCV (RBC) [Entitic vol] 88.9 fL Normal 80.0-100.0 [facility] Comment on above: Order Comment: Speci men Type: BLOOD SPECIMEN Ordering Facility: [facility] Address: [address] [place] [address] Performed By: #### 2 777-1, , #### [facility] CLIA [id number] [address] [place] [address] [place] Nucleated RBC (Bld) [#/Vol] 10*3/uL Normal <0.01 [facility] Comment on above: Order Comment: Speci men Type: BLOOD SPECIMEN Ordering Facility: [facility] Address: [address] [place] [address] Performed By: #### 2 777-1, 34125-8, #### [facility] CLIA [id number] [address] [place] [address] [place] Platelet mean volume (Bld) [Entitic vol] 10.0 fL Normal 9.0-12.7 [facility] Comment on above: Order Comment: Speci men Type: BLOOD SPECIMEN Ordering Facility: [facility] Address: [address] [place] [address] Performed By: #### 2 777-1, 75110-5, #### [facility] CLIA [id number] [address] [place] [address] [place] Platelets (Bld) [#/Vol] 369 10*3/uL Normal 150-400 [facility] Comment on above: Order Comment: Speci men Type: BLOOD SPECIMEN Ordering Facility: [facility] Address: [address] [place] [address] Performed By: #### 2 777-1, 96295-5, #### [facility] CLIA [id number] [address] [place] [address] [place] RBC (Bld) [#/Vol] 3.79 10*6/uL Low 3.90-5.20 [facility] Comment on above: Order Comment: Speci men Type: BLOOD SPECIMEN Ordering Facility: [facility] Address: [address] [place] [address] Performed By: #### 2 777-1, 49586-7, #### [facility] CLIA [id number] [address] [place] [address] [place] WBC (Bld) [#/Vol] 6.87 10*3/uL Normal 3.70-11.00 [facility] Comment on above: Order Comment: Speci men Type: BLOOD SPECIMEN Ordering Facility: [facility] Address: [address] [place] [address] Performed By: #### 2 777-1, 70107-0, #### [facility] CLIA [id number] [address] [place] [id number] [place] CONSULTon 01-13-2025 CONSULT HNO ID: [id number] Author: RAFFY PARDO RN Service: ? Author Type: Registered Nurse Type: Consults Filed: 01/13/2025 16:00 Note Text: ANCILLARY OSTOMY CARE PROGRESS NOTE SERVICE DATE: 01/13/2025 SERVICE TIME: 1400 RE: ostomy supplies - Pt was provided with needed ostomy supplies and instructed on how to order. Pt has been ordering her own ostomy supplies even prior to this hospitalization. Pt is independent with ostomy care. No further needs at this time. SIGNATURE: Raffy Pardo RN PATIENT NAME: Roal Aguilar DATE: January 13, 2025 TIME: 3:58 PM PAGER/CONTACT #: [phone] Normal [facility] Magnesium SerPl-mCncon 01-13 Magnesium [Mass/Vol] 2.0 mg/dL Normal 1.7-2.3 [facility] Comment on above: Order Comment: Speci men Type: BLOOD SPECIMEN Ordering Facility: [facility] Address: [address] [place], [place] [address] Performed By: #### 2 777-1, 32797-5, #### [facility] CLIA [id number] [address] [place] [id number] [place] Phosphate SerPl-mCncon 01-13 Phosphate [Mass/Vol] 3.9 mg/dL Normal 2.7-4.8 [facility] Comment on above: Order Comment: Speci men Type: BLOOD SPECIMEN Ordering Facility: [facility] Address: [address] [place], [place] [address] Performed By: #### 2 777-1, 32975-2, #### [facility] CLIA [id number] [address] [place] [id number] [place] Basic metabolic 2000 panelon 01-12-2025 Anion gap [Moles/Vol] 8 mmol/L Normal 8-15 [facility] Comment on above: Order Comment: Speci men Type: BLOOD SPECIMENOrdering Facility: [facility] Address: [address] [place] [address] Performed By: #### 2 4321-2 ####[facility] [id number] [place] [id number] [place] Calcium [Mass/Vol] 7.9 mg/dL Low 8.5-10.2 [facility] Comment on above: Order Comment: Speci men Type: BLOOD SPECIMENOrdering Facility: [facility] Address: [address] [place] [address] Performed By: #### 2 4321-2 ####[facility] [id number] [place] [address] [place] Chloride [Moles/Vol] 98 mmol/L Normal 98-107 [facility] Comment on above: Order Comment: Speci men Type: BLOOD SPECIMENOrdering Facility: [facility] Address: [address] [place] [address] Performed By: #### 2 4321-2 ####[facility] [id number] [place] [id number] [place] CO2 [Moles/Vol] 30 mmol/L Normal 22-30 [facility] Comment on above: Order Comment: Speci men Type: BLOOD SPECIMENOrdering Facility: [facility] Address: [address] [place] [address] Performed By: #### 2 4321-2 ####[facility] [id number] [place] [id number] [place] Creatinine [Mass/Vol] 0.40 mg/dL Low 0.58-0.96 [facility] Comment on above: Order Comment: Speci men Type: BLOOD SPECIMENOrdering Facility: [facility] Address: [address] [place] [address] Performed By: #### 2 4321-2 ####[facility] [id number] [place] [id number] [place] Creatinine and Glomerular filtration rate.predicted panel (S/P/Bld) 138 mL/min/1.73m??? Normal >=60 [facility] Comment on above: Order Comment: [place] Type: BLOOD SPECIMENOrdering Facility: [facility] Address: [address] [place] [address] Result Comment: Alysha mated Glomerular Filtration Rate [...] actual GFR. Performed By: #### 2 4321-2 ####[facility] LABORATORYCLIA [id number] [place] [address] [place] Glucose [Mass/Vol] 109 mg/dL High 74-99 [facility] Comment on above: Order Comment: Roya [place] rio Type: BLOOD SPECIMENOrdering Facility: [facility] Address: [address] [place] [address] Result Comment: The [place] Diabetes Association (ADA) provides guidance for cutoff [...] Standards of Medical Care in Diabetes 2016, [place] [employer]. Diabetes Care. 2016.39(Suppl 1). Performed By: #### 2 4321-2 ####[facility]ORATORYCLIA [id number] [place] [id number] [place] Potassium [Moles/Vol] 4.3 mmol/L Normal 3.7-5.1 [facility] Comment on above: Order Comment: [place] rio Type: BLOOD SPECIMENOrdering Facility: [facility] Address: [address] [place] [address] Performed By: #### 2 4321-2 ####[facility]ORATORYCLIA [id number] [place] [id number] [place] Sodium [Moles/Vol] 136 mmol/L Normal 136-144 [facility] Comment on above: Order Comment: Speci men Type: BLOOD SPECIMENOrdering Facility: [facility] Address: [address] [place] [address] Performed By: #### 2 4321-2 ####[facility]ORATORYCLIA [id number] [place] [address] [place] Urea nitrogen [Mass/Vol] 6 mg/dL Low 7-21 [facility] Comment on above: Order Comment: Speci men Type: BLOOD SPECIMENOrdering Facility: [facility] Address: [address] [place] [address] Performed By: #### 2 4321-2 ####[facility]ORATORYCLIA [id number] [place] [address] [place] CBC W Auto Differential pane l (Bld)on 01-12-2025 Basophils (Bld) [#/Vol] 10*3/uL Normal <0.11 [facility] Comment on above: Order Comment: Speci men Type: BLOOD SPECIMEN Ordering Facility: [facility] Address: [address] [place] [address] Performed By: #### 2 777-1, , #### [facility] CLIA [id number] [address] [place] [address] [place] Basophils/100 WBC (Bld) 0.2 % Normal [facility] Comment on above: Order Comment: Speci men Type: BLOOD SPECIMEN Ordering Facility: [facility] Address: [address] [place] [address] Performed By: #### 2 777-1, 22068-1, #### [facility] CLIA [id number] [address] [place] Differential cell count method Nom (Bld) Auto Normal [facility] Comment on above: Order Comment: Speci men Type: BLOOD SPECIMEN [facility]ing Facility: [facility] Address: [address] [place] [address] Performed By: #### 2 777-1, , #### [facility] CLIA [id number] [address] [place] [address] [place] Eosinophils (Bld) [#/Vol] 0.15 10*3/uL Normal <0.46 [facility] Comment on above: Order Comment: Speci men Type: BLOOD SPECIMEN [facility]ing Facility: [facility] Address: [address] [place] [address] Performed By: #### 2 777-1, , #### [facility] CLIA [id number] [address] [place] [address] [place] Eosinophils/100 WBC (Bld) 1.7 % Normal [facility] Comment on above: Order Comment: Speci men Type: BLOOD SPECIMEN Ordering Facility: [facility] Address: [address] [place] [address] Performed By: #### 2 777-1, , #### [facility] CLIA [id number] [address] [place] [address] [place] Erythrocyte distribution width (RBC) [Ratio] 16.9 % High 11.5-15.0 [facility] Comment on above: Order Comment: Speci men Type: BLOOD SPECIMEN Ordering Facility: [facility] Address: [address] [place] [address] Performed By: #### 2 777-1, , #### [facility] CLIA [id number] [address] [place] [address] [place] Hematocrit (Bld) [Volume fraction] 28.9 % Low 36.0-46.0 [facility] Comment on above: Order Comment: Speci men Type: BLOOD SPECIMEN [facility]ing Facility: [facility] Address: [address] [place] [address] Performed By: #### 2 777-1, , #### [facility] CLIA [id number] [address] [place], [place] [address] [place] Hemoglobin (Bld) [Mass/Vol] 9.3 g/dL Low 11.5-15.5 [facility] Comment on above: Order Comment: Speci men Type: BLOOD SPECIMEN [facility]ing Facility: [facility] Address: [address] [place] [address] Performed By: #### 2 777-1, , #### [facility] CLIA [id number] [address] [place] [address] [place] Immature granulocytes (Bld) [#/Vol] 0.03 10*3/uL Normal <0.10 [facility] Comment on above: Order Comment: Speci men Type: BLOOD SPECIMEN Ordering Facility: [facility] Address: [address] [place] [address] Performed By: #### 2 777-1, , #### [facility] CLIA [id number] [address] [place] [address] [place] Immature granulocytes/100 WBC (Bld) 0.3 % Normal [facility] Comment on above: Order Comment: Speci men Type: BLOOD SPECIMEN Ordering Facility: [facility] Address: [address] [place] [address] Performed By: #### 2 777-1, , #### [facility] CLIA [id number] [address] [place], [place] [address] [place] Lymphocytes (Bld) [#/Vol] 0.39 10*3/uL Low 1.00-4.00 [facility] Comment on above: Order Comment: Speci men Type: BLOOD SPECIMEN Ordering Facility: [facility] Address: [address] [place] [address] Performed By: #### 2 777-1, , #### [facility] CLIA [id number] [address] [place] [address] [place] Lymphocytes/100 WBC (Bld) 4.4 % Normal [facility] Comment on above: Order Comment: Speci men Type: BLOOD SPECIMEN Ordering Facility: [facility] Address: [address] [place] [address] Performed By: #### 2 777-1, , #### [facility] CLIA [id number] [address] [place] [address] [place] MCH (RBC) [Entitic mass] 27.8 pg Normal 26.0-34.0 [facility] Comment on above: Order Comment: Speci men Type: BLOOD SPECIMEN Ordering Facility: [facility] Address: [address] [place] [address] Performed By: #### 2 777-1, , #### [facility] CLIA [id number] [address] [place] [address] [place] MCHC (RBC) [Mass/Vol] 32.2 g/dL Normal 30.5-36.0 [facility] Comment on above: Order Comment: Speci men Type: BLOOD SPECIMEN Ordering Facility: [facility] Address: [address] [place] [address] Performed By: #### 2 777-1, , #### [facility] CLIA [id number] [address] [place] [address] [place] MCV (RBC) [Entitic vol] 86.3 fL Normal 80.0-100.0 [facility] Comment on above: Order Comment: Speci men Type: BLOOD SPECIMEN Ordering Facility: [facility] Address: [address] [place] [address] Performed By: #### 2 777-1, , #### [facility] CLIA [id number] [address] [place] [address] [place] Monocytes (Bld) [#/Vol] 0.52 10*3/uL Normal <0.87 [facility] Comment on above: Order Comment: Speci men Type: BLOOD SPECIMEN Ordering Facility: [facility] Address: [address] [place] [address] Performed By: #### 2 777-1, 22618-4, #### [facility] CLIA [id number] [address] [place], [place] [address] [place] Monocytes/100 WBC (Bld) 5.9 % Normal [facility] Comment on above: Order Comment: Speci men Type: BLOOD SPECIMEN [facility]ing Facility: [facility] Address: [address] [place] [address] Performed By: #### 2 777-1, , #### [facility] CLIA [id number] [address] [place], [place] [address] [place] Neutrophils (Bld) [#/Vol] 7.66 10*3/uL High 1.45-7.50 [facility] Comment on above: Order Comment: Speci men Type: BLOOD SPECIMEN [facility]ing [facility]: [facility] Address: [address] [place] [address] Performed By: #### 2 777-1, , #### [facility] CLIA [id number] [address] [place] [address] [place] Neutrophils/100 WBC (Bld) 87.5 % Normal [facility] Comment on above: Order Comment: Speci men Type: BLOOD SPECIMEN [facility]ing [facility]: [facility] Address: [address] [place] [address] Performed By: #### 2 777-1, , #### [facility] CLIA [id number] [address] [place] [address] [place] Nucleated RBC (Bld) [#/Vol] 10*3/uL Normal <0.01 [facility] Comment on above: Order Comment: Speci men Type: BLOOD SPECIMEN [facility]ing [facility]: [facility] Address: [address] [place] [address] Performed By: #### 2 777-1, , #### [facility] CLIA [id number] [address] [place] [address] [place] Nucleated RBC/100 WBC (Bld) [Ratio] 0.0 /100 WBC Normal [facility] Comment on above: Order Comment: Speci men Type: BLOOD SPECIMEN [facility]ing Facility: [facility] Address: [address] [place] [address] Performed By: #### 2 777-1, , #### [facility] CLIA [id number] [address] [place] [address] [place] Platelet mean volume (Bld) [Entitic vol] 9.0 fL Normal 9.0-12.7 [facility] Comment on above: Order Comment: Speci men Type: BLOOD SPECIMEN [facility]ing Facility: [facility] Address: [address] [place] [address] Performed By: #### 2 777-1, , #### [facility] CLIA [id number] [address] [place] [address] [place] Platelets (Bld) [#/Vol] 408 10*3/uL High 150-400 [facility] Comment on above: Order Comment: Speci men Type: BLOOD SPECIMEN [facility]ing Facility: [facility] Address: [address] [place] [address] Performed By: #### 2 777-1, , #### [facility] CLIA [id number] [address] [place] [address] [place] RBC (Bld) [#/Vol] 3.35 10*6/uL Low 3.90-5.20 [facility] Comment on above: Order Comment: Speci men Type: BLOOD SPECIMEN [facility]ing [facility]: [facility] Address: [address] [place] [address] Performed By: #### 2 777-1, , #### [facility] CLIA [id number] [address] [place] [address] [place] WBC (Bld) [#/Vol] 8.77 10*3/uL Normal 3.70-11.00 [facility] Comment on above: Order Comment: Speci men Type: BLOOD SPECIMEN [facility]ing [facility]: [facility] Address: [address] [place] [address] Performed By: #### 2 777-1, 85944-8, 25416-6 #### [facility] CLIA [id number] [address] [place] [address] [place] THERAPY NTon 01-12-2025 THERAPY NT HNO ID: [id number] Author: KELLY CARDENAS PT Service: Physical Therapy Author Type: Physical Therapist Type: Therapy (PT/OT/Speech/Resp) Filed: 01/12/2025 14:58 Note Text: PHYSICAL THERAPY MISSED VISIT SERVICE DATE: 01/12/2025 SERVICE TIME: 1456 ROOM: [place] [address] Patient not seen due to politely Declined to Participate. Discussed benefits of ambulation and mobilization OOB, pt with good understanding and states she will walk later this afternoon with nursing; patient states she has been ambulating in the room on her own SIGNATURE: Kelly Cardenas PT PATIENT NAME: Rola Aguilar DATE: January 12, 2025 TIME: 2:56 PM Normal [facility] Basic metabolic 2000 panelon 01-11-2025 Anion gap [Moles/Vol] 13 mmol/L Normal 8-15 [facility] Comment on above: Order Comment: Speci men Type: BLOOD SPECIMEN [facility] Address: [address] [place] [address] Performed By: #### 2 4321-2 #### [facility] CLIA [id number] [address] [place] [address] [place] Calcium [Mass/Vol] 7.6 mg/dL Low 8.5-10.2 [facility] Comment on above: Order Comment: Speci men Type: BLOOD SPECIMEN [facility] Facility: [facility] Address: [address] [place] [address] Performed By: #### 2 4321-2 #### [facility] CLIA [id number] [address] [place] [address] [place] Chloride [Moles/Vol] 95 mmol/L Low 98-107 [facility] Comment on above: Order Comment: Speci men Type: BLOOD SPECIMEN [facility]ing Facility: [facility] Address: [address] [place] [address] Performed By: #### 2 4321-2 #### [facility] CLIA [id number] [address] [place] [address] [place] CO2 [Moles/Vol] 27 mmol/L Normal 22-30 [facility] Comment on above: Order Comment: Speci men Type: BLOOD SPECIMEN [facility]: [facility] Address: [address] [place] [address] Performed By: #### 2 4321-2 #### [facility] CLIA [id number] [address] [place] [address] [place] Creatinine [Mass/Vol] 0.47 mg/dL Low 0.58-0.96 [facility] Comment on above: Order Comment: Speci men Type: BLOOD SPECIMEN [facility] Facility: [facility] Address: [address] [place] [address] Performed By: #### 2 4321-2 #### [facility] CLIA [id number] [address] [place] [address] [place] Creatinine and Glomerular filtration rate.predicted panel (S/P/Bld) 132 mL/min/1.73m??? Normal >=60 [facility] Comment on above: Order Comment: Speci men Type: BLOOD SPECIMEN [facility]: [facility] Address: [address] [place] [address] Result Comment: Alysha mated Glomerular Filtration Rate [...] GFR. Performed By: #### 2 4321-2 #### [facility] CLIA [id number] [place] [address] [place] Glucose [Mass/Vol] 75 mg/dL Normal 74-99 [facility] Comment on above: Order Comment: Speci men Type: BLOOD SPECIMEN Ordering Facility: [facility] Address: [address] [place] [address] Result Comment: The [place] Diabetes Association (ADA) provides guidance for cutoff [...] Standards of Medical Care in Diabetes 2016, [place] Diabetes [employer]. Diabetes Care. 2016.39(Suppl 1). Performed By: #### 2 4321-2 #### [facility] CLIA [id number] [address] [place] [address] [place] Potassium [Moles/Vol] 3.6 mmol/L Low 3.7-5.1 [facility] Comment on above: Order Comment: Frankii men Type: BLOOD SPECIMEN [facility] Facility: [facility] Address: [address] [place] [address] Performed By: #### 2 4321-2 #### [facility] CLIA [id number] [address] [place] [address] [place] Sodium [Moles/Vol] 135 mmol/L Low 136-144 [facility] Comment on above: Order Comment: Speci men Type: BLOOD SPECIMEN Ordering Facility: [facility] Address: [address] [place] [address] Performed By: #### 2 4321-2 #### [facility] CLIA [id number] [address] [place] [address] [place] Urea nitrogen [Mass/Vol] 8 mg/dL Normal 7-21 [facility] Comment on above: Order Comment: Frankii men Type: BLOOD SPECIMEN [facility] Facility: [facility] Address: [address] [place] [address] Performed By: #### 2 4321-2 #### [facility] CLIA [id number] [address] [place] [address] [place] CBC W Auto Differential pane l (Bld)on 01-11-2025 Basophils (Bld) [#/Vol] 0.04 10*3/uL Normal <0.11 [facility] Comment on above: Order Comment: Speci men Type: BLOOD SPECIMEN [facility]: [facility] Address: [address] [place] [address] Performed By: #### 2 777-1, , #### [facility] CLIA [id number] [address] [place] [address] [place] Basophils/100 WBC (Bld) 0.5 % Normal [facility] Comment on above: Order Comment: Speci men Type: BLOOD SPECIMEN [facility]ing Facility: [facility] Address: [address] [place] [address] Performed By: #### 2 777-1, , #### [facility] CLIA [id number] [address] [place] [address] [place] Differential cell count method Nom (Bld) Auto Normal [facility] Comment on above: Order Comment: Speci men Type: BLOOD SPECIMEN [facility] Facility: [facility] Address: [address] [place] [address] Performed By: #### 2 777-1, , #### [facility] CLIA [id number] [address] [place] [address] [place] Eosinophils (Bld) [#/Vol] 0.17 10*3/uL Normal <0.46 [facility] Comment on above: Order Comment: Speci men Type: BLOOD SPECIMEN [facility] Address: [address] [place] [address] Performed By: #### 2 777-1, , #### [facility] CLIA [id number] [address] [place] [address] [place] Eosinophils/100 WBC (Bld) 2.1 % Normal [facility] Comment on above: Order Comment: Speci men Type: BLOOD SPECIMEN [facility]ing Facility: [facility] Address: [address] [place] [address] Performed By: #### 2 777-1, 81245-4, #### [facility] CLIA [id number] [address] [place] [address] [place] Erythrocyte distribution width (RBC) [Ratio] 17.0 % High 11.5-15.0 [facility] Comment on above: Order Comment: Speci men Type: BLOOD SPECIMEN [facility]ing Facility: [facility] Address: [address] [place] [address] Performed By: #### 2 777-1, , #### [facility] CLIA [id number] [address] [place] [address] [place] Hematocrit (Bld) [Volume fraction] 28.2 % Low 36.0-46.0 [facility] Comment on above: Order Comment: Speci men Type: BLOOD SPECIMEN [facility]ing Facility: [facility] Address: [address] [place] [address] Performed By: #### 2 777-1, , #### [facility] CLIA [id number] [address] [place] [address] [place] Hemoglobin (Bld) [Mass/Vol] 9.3 g/dL Low 11.5-15.5 [facility] Comment on above: Order Comment: Speci men Type: BLOOD SPECIMEN [facility]ing Facility: [facility] Address: [address] [place] [address] Performed By: #### 2 777-1, 77727-7, #### [facility] CLIA [id number] [address] [place] [address] [place] Immature granulocytes (Bld) [#/Vol] 0.09 10*3/uL Normal <0.10 [facility] Comment on above: Order Comment: Speci men Type: BLOOD SPECIMEN Ordering Facility: [facility] Address: [address] [place] [address] Performed By: #### 2 777-1, 47336-3, #### [facility] CLIA [id number] [address] [place], [place] [address] [place] Immature granulocytes/100 WBC (Bld) 1.1 % Normal [facility] Comment on above: Order Comment: Speci men Type: BLOOD SPECIMEN Ordering Facility: [facility] Address: [address] [place] [address] Performed By: #### 2 777-1, , #### [facility] CLIA [id number] [address] [place] [address] [place] Lymphocytes (Bld) [#/Vol] 0.61 10*3/uL Low 1.00-4.00 [facility] Comment on above: Order Comment: Speci men Type: BLOOD SPECIMEN Ordering Facility: [facility] Address: [address] [place] [address] Performed By: #### 2 777-1, , #### [facility] CLIA [id number] [address] [place] [address] [place] Lymphocytes/100 WBC (Bld) 7.5 % Normal [facility] Comment on above: Order Comment: Speci men Type: BLOOD SPECIMEN Ordering Facility: [facility] Address: [address] [place] [address] Performed By: #### 2 777-1, , #### [facility] CLIA [id number] [address] [place] [address] [place] MCH (RBC) [Entitic mass] 27.9 pg Normal 26.0-34.0 [facility] Comment on above: Order Comment: Speci men Type: BLOOD SPECIMEN Ordering Facility: [facility] Address: [address] [place] [address] Performed By: #### 2 777-1, 20042-6, #### [facility] CLIA [id number] [address] [place], [place] [address] [place] MCHC (RBC) [Mass/Vol] 33.0 g/dL Normal 30.5-36.0 [facility] Comment on above: Order Comment: Speci men Type: BLOOD SPECIMEN Ordering Facility: [facility] Address: [address] [place] [address] Performed By: #### 2 777-1, , #### [facility] CLIA [id number] [address] [place] [address] [place] MCV (RBC) [Entitic vol] 84.7 fL Normal 80.0-100.0 [facility] Comment on above: Order Comment: Speci men Type: BLOOD SPECIMEN Ordering Facility: [facility] Address: [address] [place] [address] Performed By: #### 2 777-1, , #### [facility] CLIA [id number] [address] [place] [address] [place] Monocytes (Bld) [#/Vol] 0.81 10*3/uL Normal <0.87 [facility] Comment on above: Order Comment: Speci men Type: BLOOD SPECIMEN Ordering Facility: [facility] Address: [address] [place] [address] Performed By: #### 2 777-1, , #### [facility] CLIA [id number] [address] [place] [address] [place] Monocytes/100 WBC (Bld) 10.0 % Normal [facility] Comment on above: Order Comment: Speci men Type: BLOOD SPECIMEN Ordering Facility: [facility] Address: [address] [place] [address] Performed By: #### 2 777-1, , #### [facility] CLIA [id number] [address] [place] [address] [place] Neutrophils (Bld) [#/Vol] 6.38 10*3/uL Normal 1.45-7.50 [facility] Comment on above: Order Comment: Speci men Type: BLOOD SPECIMEN Ordering Facility: [facility] Address: [address] [place] [address] Performed By: #### 2 777-1, 75976-6, #### [facility] CLIA [id number] [address] [place] [address] [place] Neutrophils/100 WBC (Bld) 78.8 % Normal [facility] Comment on above: Order Comment: Speci men Type: BLOOD SPECIMEN Ordering Facility: [facility] Address: [address] [place] [address] Performed By: #### 2 777-1, , #### [facility] CLIA [id number] [address] [place] [address] [place] Nucleated RBC (Bld) [#/Vol] 10*3/uL Normal <0.01 [facility] Comment on above: Order Comment: Speci men Type: BLOOD SPECIMEN Ordering Facility: [facility] Address: [address] [place] [address] Performed By: #### 2 777-1, , #### [facility] CLIA [id number] [address] [place] [address] [place] Nucleated RBC/100 WBC (Bld) [Ratio] 0.0 /100 WBC Normal [facility] Comment on above: Order Comment: Speci men Type: BLOOD SPECIMEN Ordering Facility: [facility] Address: [address] [place] [address] Performed By: #### 2 777-1, , #### [facility] CLIA [id number] [address] [place] [address] [place] Platelet mean volume (Bld) [Entitic vol] 8.8 fL Low 9.0-12.7 [facility] Comment on above: Order Comment: Speci men Type: BLOOD SPECIMEN Ordering Facility: [facility] Address: [address] [place] [address] Performed By: #### 2 777-1, 19887-9, #### [facility] CLIA [id number] [address] [place] [address] [place] Platelets (Bld) [#/Vol] 375 10*3/uL Normal 150-400 [facility] Comment on above: Order Comment: Speci men Type: BLOOD SPECIMEN Ordering Facility: [facility] Address: [address] [place] [address] Performed By: #### 2 777-1, 35555-5, #### [facility] CLIA [id number] [address] [place] [address] [place] RBC (Bld) [#/Vol] 3.33 10*6/uL Low 3.90-5.20 [facility] Comment on above: Order Comment: Speci men Type: BLOOD SPECIMEN Ordering Facility: [facility] Address: [address] [place] [address] Performed By: #### 2 777-1, , #### [facility] CLIA [id number] [address] [place] [address] [place] WBC (Bld) [#/Vol] 8.10 10*3/uL Normal 3.70-11.00 [facility] Comment on above: Order Comment: Speci men Type: BLOOD SPECIMEN Ordering Facility: [facility] Address: [address] [place] [address] Performed By: #### 2 777-1, , #### [facility] CLIA [id number] [address] [place] [address] [place] CBC panel Auto (Bld)on 01-11 Erythrocyte distribution width (RBC) [Ratio] 17.0 % High 11.5-15.0 [facility] Comment on above: Order Comment: Speci men Type: BLOOD SPECIMEN Ordering Facility: [facility] Address: [address] [place] [address] Performed By: #### 2 777-1, 97596-5, #### [facility] CLIA [id number] [place] [address] [place] Hematocrit (Bld) [Volume fraction] 32.5 % Low 36.0-46.0 [facility] Comment on above: Order Comment: Speci men Type: BLOOD SPECIMEN Ordering Facility: [facility] Address: [address] [place] [address] Performed By: #### 2 777-1, , #### [facility] CLIA [id number] [address] [place] [address] [place] Hemoglobin (Bld) [Mass/Vol] 10.4 g/dL Low 11.5-15.5 [facility] Comment on above: Order Comment: Speci men Type: BLOOD SPECIMEN Ordering Facility: [facility] Address: [address] [place] [address] Performed By: #### 2 777-1, , #### [facility] CLIA [id number] [address] [place] [address] [place] MCH (RBC) [Entitic mass] 27.4 pg Normal 26.0-34.0 [facility] Comment on above: Order Comment: Speci men Type: BLOOD SPECIMEN Ordering Facility: [facility] Address: [address] [place] [address] Performed By: #### 2 777-1, , #### [facility] CLIA [id number] [address] [place] [address] [place] MCHC (RBC) [Mass/Vol] 32.0 g/dL Normal 30.5-36.0 [facility] Comment on above: Order Comment: Speci men Type: BLOOD SPECIMEN Ordering Facility: [facility] Address: [address] [place] [address] Performed By: #### 2 777-1, 70743-6, #### [facility] CLIA [id number] [address] [place] [address] [place] MCV (RBC) [Entitic vol] 85.5 fL Normal 80.0-100.0 [facility] Comment on above: Order Comment: Speci men Type: BLOOD SPECIMEN Ordering Facility: [facility] Address: [address] [place] [address] Performed By: #### 2 777-1, 17780-3, #### [facility] CLIA [id number] [address] [place], [place] [address] [place] Nucleated RBC (Bld) [#/Vol] 10*3/uL Normal <0.01 [facility] Comment on above: Order Comment: Speci men Type: BLOOD SPECIMEN Ordering Facility: [facility] Address: [address] [place] [address] Performed By: #### 2 777-1, 50839-2, #### [facility] CLIA [id number] [address] [place] [address] [place] Platelet mean volume (Bld) [Entitic vol] 8.9 fL Low 9.0-12.7 [facility] Comment on above: Order Comment: Speci men Type: BLOOD SPECIMEN Ordering Facility: [facility] Address: [address] [place] [address] Performed By: #### 2 777-1, , #### [facility] CLIA [id number] [address] [place] [address] [place] Platelets (Bld) [#/Vol] 477 10*3/uL High 150-400 [facility] Comment on above: Order Comment: Speci men Type: BLOOD SPECIMEN Ordering Facility: [facility] Address: [address] [place] [address] Performed By: #### 2 777-1, , #### [facility] CLIA [id number] [address] [place], [place] [address] [place] RBC (Bld) [#/Vol] 3.80 10*6/uL Low 3.90-5.20 [facility] Comment on above: Order Comment: Speci men Type: BLOOD SPECIMEN Ordering Facility: [facility] Address: [address] [place] [address] Performed By: #### 2 777-1, 76056-8, #### [facility] CLIA [id number] [address] [place] [address] [place] WBC (Bld) [#/Vol] 11.79 10*3/uL High 3.70-11.00 [facility] Comment on above: Order Comment: Speci men Type: BLOOD SPECIMEN Ordering Facility: [facility] Address: [address] [place] [address] Performed By: #### 2 777-1, 88939-7, 60794-7 #### [facility] CLIA [id number] [address] [place] [id number] [facility] CONSULTon 01-11-2025 CONSULT HNO ID: [id number] Author: RAFFY PARDO RN Service: ? Author Type: Registered Nurse Type: Consults Filed: 01/11/2025 11:33 Note Text: ANCILLARY OSTOMY CARE PROGRESS NOTE SERVICE DATE: 01/11/2025 SERVICE TIME: 1100 RE: ileostomy fitting - The pt was seen today by the ostomy team to help her get fitted for a new pouch due to a re-siting of her previous ileostomy. The new ileostomy is in the RLQ, and the stoma is beefy red, moist, and budded at this time. There is a small amount of liquid brown effluent in the pouch. Pt is independent with pouch care, and stated that she has no questions or issues at this time. The pouch was already changed this am by bedside nursing because it had begun to leak. The pt was previously using a Coloplast one piece convex cut to fit pouch. The pt can resume use of this same pouch, being sure to cut the aperture the appropriate size. Pt stated that she knows how to measure and cut her pouches, as she was doing this previously. - Will check in on the patient again tomorrow, and provide supplies. 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 S/P takedown of DLI and formation of end ileosomty, Lap total proctocolectomy, POD 3 Pt got anxious with HR 150s and AMET called. On arrival, Bp 113/82, 97% on RA. Pt anxious sitting on chair, and declined Pads, EKG. HR 120-130s. Was AAO3. Pt has baseline anxiety (not on any meds) with Hx of panic attack. Pain controlled w RESIDENTIAL REMODELING SUBCONTRACTOR ,remained HDS. Suspect anxiety related tachycardia. Though no evidence of gross bleeding at this time. Hb was 6.0 yesterday and s/p pRBC, this AM hb 9.3. recommend repeat labs to monitor H/H to r/o tachycardia d/t anemia. Pt refused EKG or labs at this danny requested to talk to primary team (CRS), provider came to bedside and AMET called off. - Recommend pain control, address anxiety with prn meds if tachycardia persistent. - repeat labs (CBC) and obtain EKG when possible. Physical Exam Findings: BP 108/75 Pulse 96 Temp 36.6 ?C (97.9 ?F) (Oral) Resp 22 Ht 167.6 cm (5' 6 ) Wt 52.2 kg (115 lb) LMP 06/29/2024 (Approximate) SpO2 96% BMI 18.56 kg/m? GENERAL: Alert, in distress, anxious. SKIN: Warm LUNGS: Lungs sounds diminished, no wheezing. Not in resp distress. CARDIAC: tachycardic S1 and S2; ABDOMEN: Abdomen - tender, BS diminished, stomy and drain intact, with no evidence of leakage. EXTREMITIES: no peripheral edema, good peripheral perfusion FOLLOW UP Transfer to Higher Level of Care: No Needs Closed Observation Unit/Sitter: No Communicated with Bedside Nurse: YES Communicated with Family/Significant Other: No Will Notify Primary Teams in the Morning: Primary team at bedside Harpal Mccabe MD PGY-2, Internal Medicine 01/11/2025 11:54 AM Normal [facility] Magnesium SerPl-mCncon 01-11 Magnesium [Mass/Vol] 1.6 mg/dL Low 1.7-2.3 [facility] Comment on above: Order Comment: Speci men Type: BLOOD SPECIMEN Ordering Facility: [facility] Address: [address] [place] [address] [place] [address] Performed By: #### 2 777-1, 77511-4, 90832-6 #### [facility] CLIA [id number] [address] [place] [address] [place] NURSING PROGon 01-11-2025 NURSING PROG HNO ID: [id number] Author: YESSY MASON RN Service: Nursing Author Type: Registered Nurse Type: Nursing Progress Note Filed: 01/11/2025 12:27 Note Text: Other: Daily Note: 1133- FIELD HEALTH OFFICER called per Blue team resident request for HR 150s. Pt got anxious and rapid called off once resident arrived to pt room. See FIELD HEALTH OFFICER documentation Normal [facility] NUTRITIONon 01-11-2025 NUTRITION HNO ID: [id number] Author: MALIKA MARINELLI RD Service: NST-Nutrition Support Team Author Type: Registered Dietitian Type: Nutrition Filed: 01/11/2025 13:10 Note Text: NUTRITION THERAPY INITIAL ASSESSMENT SERVICE DATE: 01/11/2025 SERVICE TIME: Start Time: 1245 Nutrition Assessment: Recommended Malnutrition Diagnosis: Severe Protein-Calorie Malnutrition In the context of: Chronic Illness or Injury Based on: Unintentional Weight Loss, Insufficient Energy Intake, Muscle Loss Nutrition Diagnosis: Problem: Increased nutrient needs Related to: Altered GI function As evidenced by: Anorexia, Depletion of fat/muscle stores, Laboratory markers, Patient/family self-report, Medical condition, Procedure/surgery, Low BMI, Weight loss, Intake records, Imaging studies, Food/nutrition related history, Wound(s), Nausea, Vomiting Care Plan: Follow for diet advancement to goal Supplements: Ensure Max, Powerade Zero Medications: Anti-emetics Monitor and Evaluation: Meet greater than 75% of estimated needs, Monitor fluid/electrolyte balance, Monitor labs, I/Os, vital signs, weight, Monitor bowel function HPI: 29 year old year old female s/p DLI takedown and EI formation, lap total proctocolectomy and APR, insertion of seton into left anterolateral fistula history of crohns Intake History: Nutrition Intake Prior to Admission: Less than 75% estimated energy needs greater than or equal to 1 month Current Nutrition Intake: 0-25% estimated energy needs Current Intake Over time: (x 3 days) Pt states she was taking Ensure and Premier protein at home Had been sick for a while with crohns and wt loss noted Provided updated copy of GI soft ostomy diet Encourage high protein - will changed shake flavors to strawberry and quincy Dosing Weight: 52.2 kg (115 lb) Dosing Weight Type: Current weight Estimated kilocalorie needs: 7956-8477 Calorie Calculation Method: 35-45 kcals/kg Estimated protein needs (grams): 80-104 Grams protein determined by: 1.5 - 2.0 g/kg Diet Orders (From admission, onward) Start Ordered 01/11/25 0845 DIET LIQUID START NOW Question: Liquid Diet Answer: FULL LIQUID 01/11/25 0834 01/08/252029 DIET SUPPLEMENTS START NOW Question Answer Comment Supplement 1 (19 years and up) POWERADE ZERO GRAPE Supplement 1 Frequency 7. BREAKFAST, LUNCH, DINNER Supplement 2 (19 years and up) ENSURE MAX VANILLA Supplement 2 Frequency 7. BREAKFAST, LUNCH, DINNER 01/08/252014 Anthropometrics: Height: 167.6 cm (5' 6 ) Weight: 52.2 kg (115 lb) Usual Weight: 83 kg (183 lb) (180-190# per pt) 02/25/24 Usual Weight Obtained From: Chart Review Body mass index is 18.56 kg/m?. Weight change percentage over time: wt loss noted 36% over 1 year Weight Change: Clinically significant weight loss Physical Exam: Subcutaneous fat loss: Subcutaneous Fat Loss Assessed Orbital: Slightly dark circles, somewhat hollow look (Mod) Upper Arm (Triceps): Some depth to pinch, not ample fat (Mod) Muscle loss: Muscle Loss Assessed Temporalis: Slight depression (Mod) Clavicle: Protruding and prominent bone (Severe) Acromion: Acromion process slightly protrudes (Mod) Scapula: Slight depression, bone slightly show (Mod) Interosseous (Hand): Slight depression of muscle (Mild) Quadricep: Mild depression on inner thigh, kneecap more prominent (Mod) Gastrocnemius: Thin, minimal to no muscle definition (Severe) Potential micronutrient deficiency: Skin Edema/Ascites: No edema GI Symptoms: Anorexia, Abdominal pain, Nausea, Vomiting Functional Status: Regressed Potential Signs of Inflammation: Chronic condition, Imaging studies, Hypoalbuminemia, Acute post-operative Crohn's, malnutrition, anxiety, depression, anemia Lines, Drains, and Airways Drain Duration Drain/Tube 01/08/25 1815 James Torres Upper Quadrant;Medial 2 days Small Bowel Ostomy 01/08/25 RLQ 2 days MNT Billing: $ Routine Care : 1 unit Time Spent (mins): 6 SIGNATURE: Malika Marinelli RD PATIENT NAME: Rola Aguilar DATE: January 11, 2025 TIME: 1:07 PM Normal [facility] Phosphate SerPl-mCncon 01-11 Phosphate [Mass/Vol] 3.9 mg/dL Normal 2.7-4.8 [facility] Comment on above: Order Comment: Speci men Type: BLOOD SPECIMEN Ordering Facility: [facility] Address: [address] [place] [address] Performed By: #### 2 777-1, 94930-6, 40919-9 #### [facility] CLIA [id number] [address] [place] [address] OF [facility] THERAPY NTon 01-11-2025 THERAPY NT HNO ID: [id number] Author: ALIZA FIGUEREDO OTR/L Service: Occupational Therapy Author Type: Occupational Therapist Type: Therapy (PT/OT/Speech/Resp) Filed: 01/11/2025 12:01 Note Text: Occupational Therapy Evaluation Summary SERVICE DATE: 01/11/2025 SERVICE TIME: 909 to 939 ROOM: [place] [address] OT 6 Clicks Score: 18 Abdominal And Perirectal Pain, Severe Crohn Colitis, Small Intestinal Crohn Enteritis, Severe Non-Healing Decubitus Wound, S/P Laparoscopic Total Proctocolectomy, Removal Of The Terminal Ileum With An End Ileostomy, Rt Colon, Mid Colon, Left Colon, Sigmoid Colon, Rectum 01/09/25 DISCHARGE RECOMMENDATIONS Home Pt has adequate support and social structure for reasonably safe discharge home at current level. Anticipated Discharge Needs: Physical Assist at Home Physical Assist at Home for: Cleaning, Laundry, Shopping, Transportation, Stairs Recommended Discharge Equipment: Grab Bars-Shower, Hand Held Shower, Elastic Shoe Laces, Long Handled Shoe Horn, Long Handled Sponge, Wheeled Walker, Agricultural Sales Representative, Shower Chair ASSESSMENT Response to Therapy Interventions: Good Participation in Activities, Pain Pt plans to discharge to her mothers home, and will have her support for at least two weeks. Pt is min assist for safety with WW bed to chair. PRECAUTIONS Abdominal, Bed/Chair Alarm, Fall Risk, Lines/Tubes/Drains NPO, NGT, Ostomy Precautions, refer to Epic CURRENT HOSPITAL COURSE Abdominal And Perirectal Pain, Severe Crohn Colitis, Small Intestinal Crohn Enteritis, Severe Non-Healing Decubitus Wound, S/P Laparoscopic Total Proctocolectomy, Removal Of The Terminal Ileum With An End Ileostomy, Rt Colon, Mid Colon, Left Colon, Sigmoid Colon, Rectum 01/09/25 Relevant Past Medical History: Crohn's, malnutrition, anxiety, depression, anemia HOME LIVING Patient Lives With: Family, Significant Other (2 children and s.o. in apt) Comments: Apt, 2nd level Assistance Available: PRN Comments: will stay at her mothers home for 2 weeks Entry To Home: Stairs, With Rail Number Of Stairs Into Home: (flight) Number Of Stairs To Bed/Bath: 0 Tub/Shower Type: Tub/Shower Laundry: indep Equipment Owned: (has access to equipment from her grandmother (recently )) PRIOR FUNCTIONAL LEVEL Within Functional Limits ambulates indep without device, indep ADL's, patient plans to stay with her mother for some time to recover Baseline Cognition: Oriented to self, Oriented to place, Oriented to time, Oriented to situation SUBJECTIVE I am in pain COGNITION Responsiveness: Alert, Awake Follows Commands: 3-step Commands THERAPY DIAGNOSIS Reduced mobility-other, Decreased activities of daily living (ADL), Muscle Weakness (generalized) TREATMENT INTERVENTIONS Evaluation, Self Correction Management (58955) Timed Code Treatment (minutes): 15 Skilled Treatment Time (minutes): 30 TRAINING AND EDUCATION PROVIDED Activity Adaptation/Compensato ry Strategies, Assistive Device Use, Bed Mobility, Benefits of In-Hospital Mobility, Discharge Planning, Disease Specific Education, Energy Conservation, Expected Functional Level, Functional Mobility Involving ADLs, IADLs/Home Management, Identification of Systems of Support, Life Roles/Routines/Habits , Insight into Deficits, Positioning, Precautions/Restricti ons, Role of Occupational Therapy, Safety/Judgment, Standing Balance to Improve Tyler with ADLs/Self-Care, Transfer - Bed to Chair, Transfer - Sit to Stand, Treatment Protocol Pt educated with role/benefit of OT services, discharge options, fall precautions, walker safety, recommended DME/AE, and provided printed material. Pt completed safe functional transfer from bed to chair with min assist using the WW for support. Pt instructed with deep breathing techniques while seated at EOB, and educated with energy conservation techniques and pacing self as pertaining to ADL's. Pt educated regarding fall precautions in room, and requested Pt call staff for any assist. Pt verbalized understanding of all precautions. THERAPEUTIC SKILLS USED Activity Dosing, Cues for Sequencing/Proper Technique for Activity, Cuing Tactile, Cuing Verbal, Cuing Visual, Management of Critical Lines, Tubes and/or Drains, Movement Facilitation, Teach-Back for Education, Therapeutic Use of Self FUNCTIONAL STATUS Activities of Daily Living Assist Level Additional Information Feeding Independent, Additional Information currently NPO Grooming Modified Independent, Additional Information seated with set-up Bathing Upper Body Modified Independent, Additional Information seated with set-up Bathing Lower Body Moderate Assistance Dressing Upper Body Stand By Assistance Dressing Lower Body Moderate Assistance Toileting Moderate Assistance Mobility Assist Level Additional Information Bed Mobility Sit to Stand Minimal Assistance Stand to Sit Minimal Assistance Bed to Chair Minimal Bibi (more content not included)... Normal [facility] THERAPY NT HNO ID: [id number] Author: KELLY CARDENAS, PT Service: Physical Therapy Author Type: Physical Therapist Type: Therapy (PT/OT/Speech/Resp) Filed: 01/11/2025 10:49 Note Text: Physical Therapy Evaluation Summary SERVICE DATE: 01/11/2025 SERVICE TIME: 0950 to 1020 ROOM: [place] [address] PT 6 Clicks Score: 19 DISCHARGE RECOMMENDATIONS Home Anticipated Discharge Needs: Physical Assist at Home Physical Assist at Home for: Cleaning, Laundry, Shopping, Transportation, Stairs ASSESSMENT Response to Therapy Interventions: Good Participation in Activities PRECAUTIONS Abdominal, Bed/Chair Alarm, Fall Risk, Lines/Tubes/Drains CURRENT HOSPITAL COURSE s/p Lap total proctocolectomy with APR, Takedown of diverting loop ileostomy and formation of end ileostomy, for crohn's proctocolitis and severe perianal CD on 01/08 Relevant Past Medical History: Crohn's, malnutrition, anxiety, depression, anemia HOME LIVING Patient Lives With: Family, Significant Other (2 children and s.o. in apt) Assistance Available: PRN Entry To Home: Stairs, With Rail Number Of Stairs Into Home: (flight) Laundry: indep Equipment Owned: (has access to equipment from her grandmother (recently )) PRIOR FUNCTIONAL LEVEL Within Functional Limits ambulates indep without device, indep ADL's, patient plans to stay with her mother for some time to recover SUBJECTIVE pt pleasant and cooperative THERAPY DIAGNOSIS Reduced mobility-other, Muscle Weakness (generalized), General symptoms and signs-other TREATMENT INTERVENTIONS Evaluation, Therapeutic Activity (03687) Timed Code Treatment (minutes): 12 Skilled Treatment Time (minutes): 30 TRAINING AND EDUCATION PROVIDED Anatomy and Impact on Deficits, Assistive Device Use, Bed Mobility, Benefits of In-Hospital Mobility, Expected Functional Level, Discharge Planning, Gait Pattern, Reduction of Deviations, Precautions/Restricti ons, Positioning, Handout Issued, Transfers, Role of Physical Therapy THERAPEUTIC SKILLS USED Activity Dosing, Cues for Sequencing/Proper Technique for Activity, Cuing Tactile, Cuing Verbal, Cuing Visual, Management of Critical Lines, Tubes and/or Drains, Physical Assist FUNCTIONAL STATUS Bed Mobility Rolling: Stand By Assistance Supine To Sit: Contact Guard Assistance Scooting: Stand By Assistance Transfers Sit To Stand: Contact Guard Assistance Stand To Sit: Contact Guard Assistance Bed to Chair Gait Contact Guard Assistance Gait Device: Wheeled Walker General Deviations/Observatio ns: Mariah decreased, Step length decreased Gait Distance (feet): few steps Stairs GOALS Patient will demonstrate progress with functional mobility to allow safe discharge to home with available support and/or physical assistance. Rehab Potential: Good Progress Toward Goals: Progressing as expected PLAN PT Frequency: 4 Times Per Week Treatment Interventions: Education, Self Care / Home Management, Strengthening, Functional Mobility Training Plan for Next Visit: Bed Mobility, Gait Training, Sit to Stand Transfers, Standing Tolerance, Walker Training SIGNATURE: Kelly Cardenas PT PATIENT NAME: Rola Aguilar DATE: January 11, 2025 TIME: 10:49 AM Normal [facility] Basic metabolic 2000 panelon 01-10-2025 Anion gap [Moles/Vol] 9 mmol/L Normal 8-15 [facility] Comment on above: Order Comment: Speci men Type: BLOOD SPECIMENOrdering Facility: [facility] Address: [address] [place] [address] Performed By: #### 2 4321-2 ####[facility] [id number] [place] [id number] [place] Calcium [Mass/Vol] 7.7 mg/dL Low 8.5-10.2 [facility] Comment on above: Order Comment: Speci men Type: BLOOD SPECIMENOrdering Facility: [facility] Address: [address] [place] [address] Performed By: #### 2 4321-2 ####[facility] [id number] [place] [id number] [place] Chloride [Moles/Vol] 101 mmol/L Normal 98-107 [facility] Comment on above: Order Comment: Speci men Type: BLOOD SPECIMENOrdering Facility: [facility] Address: [address] [place] [address] Performed By: #### 2 4321-2 ####[facility] [id number] [place] [id number] [place] CO2 [Moles/Vol] 26 mmol/L Normal 22-30 [facility] Comment on above: Order Comment: Speci men Type: BLOOD SPECIMENOrdering Facility: [facility] Address: [address] [place] [address] Performed By: #### 2 4321-2 ####[facility] [id number] [place] [id number] [place] Creatinine [Mass/Vol] 0.57 mg/dL Low 0.58-0.96 [facility] Comment on above: Order Comment: Speci men Type: BLOOD SPECIMENOrdering Facility: [facility] Address: [address] [place] [address] Performed By: #### 2 4321-2 ####[facility] [id number] [place] [id number] [place] Creatinine and Glomerular filtration rate.predicted panel (S/P/Bld) 126 mL/min/1.73m??? Normal >=60 [facility] Comment on above: Order Comment: [place] Type: BLOOD SPECIMENOrdering Facility: [facility] Address: [address] [place] [address] Result Comment: Alysha mated Glomerular Filtration Rate [...] actual GFR. Performed By: #### 2 4321-2 ####[facility] [id number] [place] [address] [place] Glucose [Mass/Vol] 88 mg/dL Normal 74-99 [facility] Comment on above: Order Comment: [place] Type: BLOOD SPECIMENOrdering Facility: [facility] Address: [address] [place] [address] Result Comment: The [place] Diabetes Association (ADA) provides guidance for cutoff [...] Standards of Medical Care in Diabetes 2016, [place] [employer]. Diabetes Care. 2016.39(Suppl 1). Performed By: #### 2 4321-2 ####[facility] [id number] [place] [id number] [place] Potassium [Moles/Vol] 4.0 mmol/L Normal 3.7-5.1 [facility] Comment on above: Order Comment: [place] Type: BLOOD SPECIMENOrdering Facility: [facility] Address: [address] [place] [address] Performed By: #### 2 4321-2 ####[facility]ORYCLIA [id number] [place] [address] [place] Sodium [Moles/Vol] 136 mmol/L Normal 136-144 [facility] Comment on above: Order Comment: Speci men Type: BLOOD SPECIMENOrdering Facility: [facility] Address: [address] [place] [address] Performed By: #### 2 4321-2 ####[facility]ORATORYCLIA [id number] [place] [address] [place] Urea nitrogen [Mass/Vol] 10 mg/dL Normal 7-21 [facility] Comment on above: Order Comment: Speci men Type: BLOOD SPECIMENOrdering Facility: [facility] Address: [address] [place] [address] Performed By: #### 2 4321-2 ####[facility]ORATORYCLIA [id number] [place] [address] [place] CBC W Auto Differential pane l (Bld)on 01-10-2025 Basophils (Bld) [#/Vol] 10*3/uL Normal <0.11 [facility] Comment on above: Order Comment: Speci men Type: BLOOD SPECIMEN Ordering Facility: [facility] Address: [address] [place] [address] Performed By: #### 2 777-1, , #### [facility] CLIA [id number] [place] [address] [place] Basophils/100 WBC (Bld) 0.2 % Normal [facility] Comment on above: Order Comment: Speci men Type: BLOOD SPECIMEN Ordering Facility: [facility] Address: [address] [place] [address] Performed By: #### 2 777-1, 15330-3, #### [facility] CLIA [id number] [place] [address] [place] Differential cell count method Nom (Bld) Auto Normal [facility] Comment on above: Order Comment: Speci men Type: BLOOD SPECIMEN Ordering Facility: [facility] Address: [address] [place] [address] Performed By: #### 2 777-1, , #### [facility] CLIA [id number] [address] [place] [address] [place] Eosinophils (Bld) [#/Vol] 0.05 10*3/uL Normal <0.46 [facility] Comment on above: Order Comment: Speci men Type: BLOOD SPECIMEN Ordering Facility: [facility] Address: [address] [place] [address] Performed By: #### 2 777-1, , #### [facility] CLIA [id number] [address] [place] [address] [place] Eosinophils/100 WBC (Bld) 1.0 % Normal [facility] Comment on above: Order Comment: Speci men Type: BLOOD SPECIMEN Ordering Facility: [facility] Address: [address] [place] [address] Performed By: #### 2 777-1, , #### [facility] CLIA [id number] [address] [place] [address] [place] Erythrocyte distribution width (RBC) [Ratio] 15.2 % High 11.5-15.0 [facility] Comment on above: Order Comment: Speci men Type: BLOOD SPECIMEN Ordering Facility: [facility] Address: [address] [place] [address] Performed By: #### 2 777-1, , #### [facility] CLIA [id number] [address] [place] [address] [place] Hematocrit (Bld) [Volume fraction] 20.1 % Low 36.0-46.0 [facility] Comment on above: Order Comment: Speci men Type: BLOOD SPECIMEN Ordering Facility: [facility] Address: [address] [place] [address] Performed By: #### 2 777-1, , #### [facility] CLIA [id number] [address] [place] [address] [place] Hemoglobin (Bld) [Mass/Vol] 6.0 g/dL Low 11.5-15.5 [facility] Comment on above: Order Comment: Speci men Type: BLOOD SPECIMEN Ordering Facility: [facility] Address: [address] [place] [address] Performed By: #### 2 777-1, 30683-5, #### [facility] CLIA [id number] [address] [place] [address] [place] Immature granulocytes (Bld) [#/Vol] 0.03 10*3/uL Normal <0.10 [facility] Comment on above: Order Comment: Speci men Type: BLOOD SPECIMEN Ordering Facility: [facility] Address: [address] [place] [address] Performed By: #### 2 777-1, , #### [facility] CLIA [id number] [address] [place] [address] [place] Immature granulocytes/100 WBC (Bld) 0.6 % Normal [facility] Comment on above: Order Comment: Speci men Type: BLOOD SPECIMEN Ordering Facility: [facility] Address: [address] [place] [address] Performed By: #### 2 777-1, , #### [facility] CLIA [id number] [address] [place] [address] [place] Lymphocytes (Bld) [#/Vol] 0.30 10*3/uL Low 1.00-4.00 [facility] Comment on above: Order Comment: Speci men Type: BLOOD SPECIMEN Ordering Facility: [facility] Address: [address] [place] [address] Performed By: #### 2 777-1, , #### [facility] CLIA [id number] [address] [place] [address] [place] Lymphocytes/100 WBC (Bld) 6.0 % Normal [facility] Comment on above: Order Comment: Speci men Type: BLOOD SPECIMEN Ordering Facility: [facility] Address: [address] [place] [address] Performed By: #### 2 777-1, , #### [facility] CLIA [id number] [address] [place] [address] MCH (RBC) [Entitic mass] 27.9 pg Normal 26.0-34.0 [facility] Comment on above: Order Comment: Speci men Type: BLOOD SPECIMEN Ordering Facility: [facility] Address: [address] [place] [address] Performed By: #### 2 777-1, , #### [facility] CLIA [id number] [address] [place] [address] [place] MCHC (RBC) [Mass/Vol] 29.9 g/dL Low 30.5-36.0 [facility] Comment on above: Order Comment: Speci men Type: BLOOD SPECIMEN Ordering Facility: [facility] Address: [address] [place] [address] Performed By: #### 2 777-1, , #### [facility] CLIA [id number] [address] [place] [address] [place] MCV (RBC) [Entitic vol] 93.5 fL Normal 80.0-100.0 [facility] Comment on above: Order Comment: Speci men Type: BLOOD SPECIMEN Ordering Facility: [facility] Address: [address] [place] [address] Performed By: #### 2 777-1, , #### [facility] CLIA [id number] [address] [place] [address] [place] Monocytes (Bld) [#/Vol] 0.36 10*3/uL Normal <0.87 [facility] Comment on above: Order Comment: Speci men Type: BLOOD SPECIMEN Ordering Facility: [facility] Address: [address] [place] [address] Performed By: #### 2 777-1, , #### [facility] CLIA [id number] [address] [place] [address] [place] Monocytes/100 WBC (Bld) 7.2 % Normal [facility] Comment on above: Order Comment: Speci men Type: BLOOD SPECIMEN Ordering Facility: [facility] Address: [address] [place] [address] Performed By: #### 2 777-1, , #### [facility] CLIA [id number] [address] [place], [place] [address] [place] Neutrophils (Bld) [#/Vol] 4.25 10*3/uL Normal 1.45-7.50 [facility] Comment on above: Order Comment: Speci men Type: BLOOD SPECIMEN Ordering Facility: [facility] Address: [address] [place] [address] Performed By: #### 2 777-1, , #### [facility] CLIA [id number] [address] [place] [address] [place] Neutrophils/100 WBC (Bld) 85.0 % Normal [facility] Comment on above: Order Comment: Speci men Type: BLOOD SPECIMEN Ordering Facility: [facility] Address: [address] [place] [address] Performed By: #### 2 777-1, , #### [facility] CLIA [id number] [address] [place] [address] [place] Nucleated RBC (Bld) [#/Vol] 10*3/uL Normal <0.01 [facility] Comment on above: Order Comment: Speci men Type: BLOOD SPECIMEN Ordering Facility: [facility] Address: [address] [place] [address] Performed By: #### 2 777-1, , #### [facility] CLIA [id number] [address] [place], [place] [address] [place] Nucleated RBC/100 WBC (Bld) [Ratio] 0.0 /100 WBC Normal [facility] Comment on above: Order Comment: Speci men Type: BLOOD SPECIMEN Ordering Facility: [facility] Address: [address] [place] [address] Performed By: #### 2 777-1, 15215-7, #### [facility] CLIA [id number] [address] [place] [address] [place] Platelet mean volume (Bld) [Entitic vol] 9.0 fL Normal 9.0-12.7 [facility] Comment on above: Order Comment: Speci men Type: BLOOD SPECIMEN Ordering Facility: [facility] Address: [address] [place] [address] Performed By: #### 2 777-1, 95879-2, #### [facility] CLIA [id number] [address] [place] [address] [place] Platelets (Bld) [#/Vol] 394 10*3/uL Normal 150-400 [facility] Comment on above: Order Comment: Speci men Type: BLOOD SPECIMEN Ordering Facility: [facility] Address: [address] [place] [address] Performed By: #### 2 777-1, 42564-4, #### [facility] CLIA [id number] [address] [place] [address] [place] RBC (Bld) [#/Vol] 2.15 10*6/uL Low 3.90-5.20 [facility] Comment on above: Order Comment: Speci men Type: BLOOD SPECIMEN Ordering Facility: [facility] Address: [address] [place] [address] Performed By: #### 2 777-1, 49191-2, #### [facility] CLIA [id number] [address] [place] [address] [place] WBC (Bld) [#/Vol] 5.00 10*3/uL Normal 3.70-11.00 [facility] Comment on above: Order Comment: Speci men Type: BLOOD SPECIMEN Ordering Facility: [facility] Address: [address] [place] [address] Performed By: #### 2 777-1, 66418-8, #### [facility] CLIA [id number] [address] [place], [place] [address] [place] CBC panel Auto (Bld)on 01-10 Erythrocyte distribution width (RBC) [Ratio] 16.3 % High 11.5-15.0 [facility] Comment on above: Order Comment: Speci men Type: BLOOD SPECIMEN Ordering Facility: [facility] Address: [address] [place] [address] Performed By: #### 2 777-1, , #### [facility] CLIA [id number] [address] [place] [address] [place] Hematocrit (Bld) [Volume fraction] 29.6 % Low 36.0-46.0 [facility] Comment on above: Order Comment: Speci men Type: BLOOD SPECIMEN Ordering Facility: [facility] Address: [address] [place] [address] Performed By: #### 2 777-1, , #### [facility] CLIA [id number] [address] [place] [address] [place] Hemoglobin (Bld) [Mass/Vol] 9.8 g/dL Low 11.5-15.5 [facility] Comment on above: Order Comment: Speci men Type: BLOOD SPECIMEN Ordering Facility: [facility] Address: [address] [place] [address] Performed By: #### 2 777-1, , #### [facility] CLIA [id number] [address] [place] [address] [place] MCH (RBC) [Entitic mass] 28.3 pg Normal 26.0-34.0 [facility] Comment on above: Order Comment: Speci men Type: BLOOD SPECIMEN Ordering Facility: [facility] Address: [address] [place] [address] Performed By: #### 2 777-1, 66867-1, #### [facility] CLIA [id number] [address] [place] [address] [place] MCHC (RBC) [Mass/Vol] 33.1 g/dL Normal 30.5-36.0 [facility] Comment on above: Order Comment: Speci men Type: BLOOD SPECIMEN Ordering Facility: [facility] Address: [address] [place] [address] Performed By: #### 2 777-1, 31229-1, #### [facility] CLIA [id number] [address] [place] [address] [place] MCV (RBC) [Entitic vol] 85.5 fL Normal 80.0-100.0 [facility] Comment on above: Order Comment: Speci men Type: BLOOD SPECIMEN Ordering Facility: [facility] Address: [address] [place] [address] Performed By: #### 2 777-1, , #### [facility] CLIA [id number] [address] [place] [address] [place] Nucleated RBC (Bld) [#/Vol] 10*3/uL Normal <0.01 [facility] Comment on above: Order Comment: Speci men Type: BLOOD SPECIMEN Ordering Facility: [facility] Address: [address] [place] [address] Performed By: #### 2 777-1, , #### [facility] CLIA [id number] [address] [place] [address] [place] Platelet mean volume (Bld) [Entitic vol] 8.4 fL Low 9.0-12.7 [facility] Comment on above: Order Comment: Speci men Type: BLOOD SPECIMEN Ordering Facility: [facility] Address: [address] [place] [address] Performed By: #### 2 777-1, 93469-4, #### [facility] CLIA [id number] [address] [place] [address] [place] Platelets (Bld) [#/Vol] 372 10*3/uL Normal 150-400 [facility] Comment on above: Order Comment: Speci men Type: BLOOD SPECIMEN Ordering Facility: [facility] Address: [address] [place] [address] Performed By: #### 2 777-1, 72518-3, #### [facility] CLIA [id number] [address] [place] [address] [place] RBC (Bld) [#/Vol] 3.46 10*6/uL Low 3.90-5.20 [facility] Comment on above: Order Comment: Speci men Type: BLOOD SPECIMEN Ordering Facility: [facility] Address: [address] [place] [address] Performed By: #### 2 777-1, 09402-7, #### [facility] CLIA [id number] [address] [place] [address] [place] WBC (Bld) [#/Vol] 9.27 10*3/uL Normal 3.70-11.00 [facility] Comment on above: Order Comment: Speci men Type: BLOOD SPECIMEN Ordering Facility: [facility] Address: [address] [place] [address] Performed By: #### 2 777-1, , #### [facility] CLIA [id number] [address] [place] [address] [place] CONSULT PROGon 01-10-2025 CONSULT PROG HNO ID: [id number] Author: MADDIE GUERRA APRN.WHEEL OF FORTUNE DEALER Service: Pain Management Author Type: Nurse Practitioner Type: Consult Progress Note Filed: 01/10/2025 19:00 Note Text: PATIENT CONTROLLED ANALGESIA PROGRESS NOTE- APND SERVICE DATE: 01/10/2025 SERVICE TIME: 12:43 PM ASSESSMENT Rola Aguilar is a 29 year old female who is 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 POD 2. Upon assessment, Ms. Aguilar is resting in bed. Mother at the bedside. She reports abdominal pain that she describes as cramping and burning . She has not been OOB since surgery. She is currently NPO with NGT in place. Ostomy starting to have some function. Lap sites ERNIE. Had a long talk with patient about importance of getting OOB. Dilaudid RESIDENTIAL REMODELING SUBCONTRACTOR started per primary, dose changed this morning to 0/0.2/15. PDMP website checked and validated. All prescriptions have been APPROPRIATELY filled. No suspicious activity was identified. 01/10/2025 by Maddie Guerra APRN.[employer]HEEL OF FORTUNE DEALER. of note, pt takes 5 mg Oxycodone every 6 hours and per pt, a second prescription for 5 mg every 8 hours as needed for abdominal pain. PLAN Continue Tylenol 1000 mg every 6 hours Continue Gabapentin per primary. Estimated Creatinine Clearance: 120 mL/min (A) (based on SCr of 0.57 mg/dL (L)). Continue Lidocaine patch x2 daily at 9 pm Start Robaxin 500 mg IV every 8 hours with holding parameters Changed Dilaudid RESIDENTIAL REMODELING SUBCONTRACTOR to 0/0.3/10, will transition once tolerating PO Start Dilaudid clinician doses, 0.2 mg every 6 hours Recommend follow up outpatient with [facility] chronic pain provider. Call for appointment Continue bowel regimen per primary Encourage use of IS and OOB as tolerated The plan was discussed in detail with patient +/- family, bedside RN, [facility]MS staff and primary service, who expressed agreement, understanding and comfort with the plan. Thank you for including us in her care. Please call us with any questions or concerns. APMS will continue to follow. 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 POD 2. 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 Yes. What location? back Pain Score at Rest: 8 Pain Score with Movement (Cough, Deep Breath, Ambulation, etc.): Unable to obtain Able to Cough/Deep Breath Adequately?: Yes Has Patient Been Out of Bed in a Chair?: No Has Patient Been Ambulating?: No Tolerating Physical Therapy?: not yet Character: aching, burning, shooting, and cramping Duration: intermittent Radiation: Yes - up back Relieved: somewhat, states RESIDENTIAL REMODELING SUBCONTRACTOR helps a little Patient is Satisfied with Pain Control: somewhat Overnight Events: None Overnight Pain Interventions: no Diet: NPO INTRAVENOUS RESIDENTIAL REMODELING SUBCONTRACTOR MEDICATIONS: Condition of IV: Appears intact. I have Interrogated the RESIDENTIAL REMODELING SUBCONTRACTOR Pump for the Correct Settings and Solution: Yes. Solution: Hydromorphone (Dilaudid) 0.5 mg/ml Basal Rate: 0 mg/hour. Patient demand dose: 0.3 mg. Lockout interval: 6 minutes Patient received 17/28 doses over the past 4 hours. Allergy: ALLERGIES Allergen Reactions Hydromorphone Itching Additional Medications Given: Current Facility-Administered Medications Medication Dose Route Frequency busPIRone 10 mg tab(s) (BUSPAR) 10 mg ORAL TID levETIRAcetam 500 mg tab(s) (KEPPRA) 500 mg ORAL BID NaCl 0.9% iv flush bag 20 mL INTRAVENOUS PRN lactated ringers iv infusion 75 mL/hr INTRAVENOUS CONTINUOUS alvimopan 12 mg cap(s) (ENTEREG) 12 mg ORAL BID ondansetron (PF) 4 mg injection (ZOFRAN) 4 mg INTRAVENOUS q 6 H PRN acetaminophen 1,000 mg tab(s) (TYLENOL) 1,000 mg ORAL q 6 H gabapentin 300 mg cap(s) (NEURONTIN) 300 mg ORAL q 8 H enoxaparin 40 mg injection (LOVENOX) 40 mg SUBCUTANEOUS DAILY naloxone 0.1 mg injection (NARCAN) 0.1 mg INTRAVENOUS q 2 MIN PRN HYDROmorphone RESIDENTIAL REMODELING SUBCONTRACTOR 0.5 mg/mL in NaCl 0.9% 100 mL INTRAVENOUS CONTINUOUS lidocaine 4 % 2 patch (SALONPAS) 2 patch TRANSDERMAL DAILY AT 9 PM And lidocaine patch - REMOVE OTHER DAILY And lidocaine - VERIFY PATCH OTHER q 8 H diazePAM 1 mg tab(s) (VALIUM) 1 mg ORAL BID PRN lidocaine urojet 2 % 11 mL topical gel (GLYDO) 11 mL MUCOUS MEMBRANE ONCE phenol 1 spray (CHLORASEPTIC) 1 spray MUCOUS MEMBRANE (TOPICAL MOUTH AND THROAT) q 2 H PRN Or benzocaine 1 lozenge (CHOLORASEPTIC WARMING SORE THROAT) 1 lozenge MUCOUS MEMBRANE (TOPICAL MOUTH AND THROAT) q 2 H PRN OBJECTIVE PHYSICAL EXAM: BP 100/62 Pulse 110 Temp 37.7 ?C (99.8 ?F) Resp 16 Ht 167.6 cm (5' 6 ) Wt 52.2 kg (115 lb) LMP 06/29/2024 (Approximate) SpO2 94% BMI 18.56 kg/m? Affect: awake, alert, and oriented General Impression: appears comfortable Respiratory Exam: Respirations: Breathing appears normal Thoracostomy T (more content not included)... Normal [facility] NURSING PROGon 01-10-2025 NURSING PROG HNO ID: [id number] Author: NAGA FERRELL RN Service: Nursing Author Type: Registered Nurse Type: Nursing Progress Note Filed: 01/10/2025 15:39 Note Text: Nursing Progress Note: 0707: Sent text page to surgical team, pt needs to have a blood order. Pt has H:6.0 that was obtained at 0454. 0709: Dr. Elliott stated that primary team is aware and rounding. 0839: Sent message to Dr. Elliott, do not have an order for blood. Orders placed for 2 units of blood. Blood bank needs a TANDS completed now. 1127: 1 unit of PRBCs given. 1149: Sent text page to surgical team, pt has a fever of 102.0, re-took with another machine and was 99.8. Pt is asymptomatic. Pt also started to have ostomy output. 1319: Sent text page to vascular access, pt needs to have a peripheral IV, does have blood infusing and needs to have one for RESIDENTIAL REMODELING SUBCONTRACTOR. Vascular access at bedside and placed IV. 1519: 1 unit of PRBCs given. 1537: Sent text page to surgical team, pt does have temp of 101.1, pt is asymptomatic. Normal [facility] NURSING PROG HNO ID: [id number] Author: TERESA BOYLE RN Service: PICC Team Author Type: Registered Nurse Type: Nursing Progress Note Filed: 01/10/2025 13:45 Note Text: PICC/VASCULAR ACCESS PROGRESS NOTE SERVICE DATE: 01/10/2025 SERVICE TIME: 1343 Called to pt's room by patient's RN d/t difficult IV access. Explained procedure to pt. IV access obtained using aseptic technique with ultrasound, in the right forearm with a 20 g, 2 inch long catheter, on the 1 attempt by Maddie HARTMANN. IV had brisk blood return and was flushed with 10 cc NS. Pt tolerated procedure. SIGNATURE: Teresa Boyle RN PATIENT NAME: Rola Aguilar DATE: January 10, 2025 TIME: 1:43 PM PAGER/CONTACT #: [phone] [facility] NURSING PROG HNO ID: [id number] Author: REGINO REESE RN Service: Nursing Author Type: Registered Nurse Type: Nursing Progress Note Filed: 01/10/2025 06:53 Note Text: Nursing Note: Pt AANDOx3, VSS on RA. Pt agreeable to NG placement with meds. Abd distended, BS faint, PAGE draining serosang, minimal brown drainage in ostomy. 0030: Pt temp was 102.1, medicated with tylenol and provided cold pack, reassessed 101.8. Remaining vital signs: B/P 105/66, HR sustaining in one teens 113, 95% on RA. Urine output 250 ml for the day. SROC paged. 0039: Orders received for bolus. 0326: Temp 98.1, B/P 114/71 0546: Pt Hgb resulted 6.0, SROC paged. 0652: 2nd page to make team aware that pt hgb is 6 this morning [facility] TYPE + SCREENon 01-10-2025 ABO B [facility] Comment on above: Order Comment: Speci men Type: BLOOD SPECIMENOrdering Facility: [facility] Address: [address] [place] [address] Performed By: #### T SCR ####[facility] [id number] [place] [id number] [place] Rh Nom (Bld) Positive [facility] Comment on above: Order Comment: Speci men Type: BLOOD SPECIMENOrdering Facility: [facility] Address: [address] [place] [address] Performed By: #### T SCR ####[facility] [id number] [place] [id number] [place] TYPE AND SCREEN EXPIRATION 01/13/2025 23:59 [facility] Comment on above: Order Comment: Speci men Type: BLOOD SPECIMENOrdering Facility: [facility] Address: [address] [place] [address] Performed By: #### T SCR ####[facility] [id number] [address] 01-09-2025 [facility] HNO ID: [id number] Author: MISAEL GODDARD RT(R) Service: Radiology Author Type: Technologist Type: Allied Health Filed: 01/09/2025 21:27 Note Text: Radiology Service Progress Note PATIENT NAME: Rola Aguilar DATE OF SERVICE: January 09, 2025 TIME: 9:27 PM PATIENT IDENTITY VERIFICATION COMPLETED USING TWO (2) IDENTIFIERS: Name and Date of confirmed by patient verbally and Name and Date of confirmed by identification band. FALL SCREENING: Has the patient had 2 falls in the last year or 1 fall with injury or currently using an Ambulatory Assistive Device (Walker, Cane, Wheelchair, Crutches, etc.)? Inpatient: Screened on floor PATIENT GENDER DATA: Assigned female at . status: : No status: NO. PATIENT RELEVANT IMPLANT DATA REVIEWED: Not Applicable PATIENT PRESENTS WITH AN IMPLANTABLE OR ATTACHED SENIOR RESEARCH ENGINEER: No RADIOLOGY DEPARTMENT: General X-ray: Exam(s) Completed: Abdomen X-Ray: Abdomen PERIPHERAL IV DATA: Not applicable SIGNED BY: RT Oswaldo(Georges) January 09, 2025 9:27 PM [facility] HNO ID: [id number] Author: KEHINDE MCKENZIE RT(R) Service: Radiology Author Type: Hr Director Type: Allied Health Filed: 01/09/2025 20:09 Note Text: Radiology Service Progress Note PATIENT NAME: Rola Aguilar DATE OF SERVICE: January 09, 2025 TIME: 8:09 PM PATIENT IDENTITY VERIFICATION COMPLETED USING TWO (2) IDENTIFIERS: Name and Date of confirmed by patient verbally. FALL SCREENING: Has the patient had 2 falls in the last year or 1 fall with injury or currently using an Ambulatory Assistive Device (Walker, Cane, Wheelchair, Crutches, etc.)? Inpatient: Screened on floor PATIENT GENDER DATA: Assigned female at . status: : No status: NO. PATIENT RELEVANT IMPLANT DATA REVIEWED: Not Applicable PATIENT PRESENTS WITH AN IMPLANTABLE OR ATTACHED SENIOR RESEARCH ENGINEER: No RADIOLOGY DEPARTMENT: General X-ray: Exam(s) Completed: Abdomen X-Ray: Abdomen PERIPHERAL IV DATA: Not applicable SIGNED BY: Kehinde Mckenzie RT(R) January 09, 2025 8:09 PM Normal [facility] Basic metabolic 2000 panelon 01-09-2025 Anion gap [Moles/Vol] 10 mmol/L Normal 8-15 [facility] Comment on above: Order Comment: Speci men Type: BLOOD SPECIMEN Ordering Facility: [facility] Address: [address] [place] [address] Performed By: #### 2 777-1, 56606-7, #### [facility] CLIA [id number] [address] [place] [address] [place] Calcium [Mass/Vol] 8.4 mg/dL Low 8.5-10.2 [facility] Comment on above: Order Comment: Speci men Type: BLOOD SPECIMEN Ordering Facility: [facility] Address: [address] [place] [address] Performed By: #### 2 777-1, , #### [facility] CLIA [id number] [address] [place] [address] [place] Chloride [Moles/Vol] 103 mmol/L Normal 98-107 [facility] Comment on above: Order Comment: Speci men Type: BLOOD SPECIMEN Ordering Facility: [facility] Address: [address] [place] [address] Performed By: #### 2 777-1, , #### [facility] CLIA [id number] [address] [place] [address] [place] CO2 [Moles/Vol] 25 mmol/L Normal 22-30 [facility] Comment on above: Order Comment: Speci men Type: BLOOD SPECIMEN Ordering Facility: [facility] Address: [address] [place] [address] Performed By: #### 2 777-1, 12366-7, #### [facility] CLIA [id number] [address] [place] [address] [place] Creatinine [Mass/Vol] 0.54 mg/dL Low 0.58-0.96 [facility] Comment on above: Order Comment: [place] Type: BLOOD SPECIMEN Ordering Facility: [facility] Address: [address] [place] [address] Performed By: #### 2 777-1, 47979-7, #### [facility] CLIA [id number] [address] [place] [address] [place] Creatinine and Glomerular filtration rate.predicted panel (S/P/Bld) 128 mL/min/1.73m??? Normal >=60 [facility] Comment on above: Order Comment: [place]a [place] rio Type: BLOOD SPECIMEN Ordering Facility: [facility] Address: [address] [place] [address] Result Comment: Alysha mated Glomerular Filtration Rate [...] reflect actual GFR. Performed By: #### 2 777-1, 55951-4, #### [facility] CLIA [id number] [place] [address] [place] Glucose [Mass/Vol] 104 mg/dL High 74-99 [facility] Comment on above: Order Comment: [place]a [place] rio Type: BLOOD SPECIMEN Ordering Facility: [facility] Address: [address] [place] [address] Result Comment: The [place] Diabetes Association (ADA) provides guidance for cutoff [...] Standards of Medical Care in Diabetes 2016, [place] Diabetes Association. Diabetes Care. 2016.39(Suppl 1). Performed By: #### 2 777-1, 57036-7, #### [facility] CLIA [id number] [address] [place] [address] [place] Potassium [Moles/Vol] 4.2 mmol/L Normal 3.7-5.1 [facility] Comment on above: Order Comment: Speci men Type: BLOOD SPECIMEN Ordering Facility: [facility] Address: [address] [place] [address] Performed By: #### 2 777-1, 61587-3, #### [facility] CLIA [id number] [address] [place] [address] [place] Sodium [Moles/Vol] 138 mmol/L Normal 136-144 [facility] Comment on above: Order Comment: Speci men Type: BLOOD SPECIMEN Ordering Facility: [facility] Address: [address] [place] [address] Performed By: #### 2 777-1, 18744-5, #### [facility] CLIA [id number] [address] [place] [address] [place] Urea nitrogen [Mass/Vol] 10 mg/dL Normal 7-21 [facility] Comment on above: Order Comment: Speci men Type: BLOOD SPECIMEN Ordering Facility: [facility] Address: [address] [place] [address] Performed By: #### 2 777-1, 74011-4, #### [facility] CLIA [id number] [address] [place], [place] [address] [place] CBC W Auto Differential pane l (Bld)on 01-09-2025 Basophils (Bld) [#/Vol] 10*3/uL Normal <0.11 [facility] Comment on above: Order Comment: Speci men Type: BLOOD SPECIMEN Ordering Facility: [facility] Address: [address] [place] [address] Performed By: #### 2 777-1, , #### [facility] CLIA [id number] [address] [place] [address] [place] Basophils/100 WBC (Bld) 0.2 % Normal [facility] Comment on above: Order Comment: Speci men Type: BLOOD SPECIMEN Ordering Facility: [facility] Address: [address] [place] [address] Performed By: #### 2 777-1, , #### [facility] CLIA [id number] [address] [place] [address] [place] Differential cell count method Nom (Bld) Auto Normal [facility] Comment on above: Order Comment: Speci men Type: BLOOD SPECIMEN Ordering Facility: [facility] Address: [address] [place] [address] Performed By: #### 2 777-1, , #### [facility] CLIA [id number] [address] [place] [address] [place] Eosinophils (Bld) [#/Vol] 10*3/uL Normal <0.46 [facility] Comment on above: Order Comment: Speci men Type: BLOOD SPECIMEN Ordering Facility: [facility] Address: [address] [place] [address] Performed By: #### 2 777-1, , #### [facility] CLIA [id number] [address] [place] [address] [place] Eosinophils/100 WBC (Bld) 0.0 % Normal [facility] Comment on above: Order Comment: Speci men Type: BLOOD SPECIMEN Ordering Facility: [facility] Address: [address] [place] [address] Performed By: #### 2 777-1, , #### [facility] CLIA [id number] [address] [place] [address] [place] Erythrocyte distribution width (RBC) [Ratio] 15.5 % High 11.5-15.0 [facility] Comment on above: Order Comment: Speci men Type: BLOOD SPECIMEN Ordering Facility: [facility] Address: [address] [place] [address] Performed By: #### 2 777-1, , #### [facility] CLIA [id number] [address] [place] [address] [place] Hematocrit (Bld) [Volume fraction] 24.1 % Low 36.0-46.0 [facility] Comment on above: Order Comment: Speci men Type: BLOOD SPECIMEN Ordering Facility: [facility] Address: [address] [place] [address] Performed By: #### 2 777-1, , #### [facility] CLIA [id number] [address] [place] [address] [place] Hemoglobin (Bld) [Mass/Vol] 7.4 g/dL Low 11.5-15.5 [facility] Comment on above: Order Comment: Speci men Type: BLOOD SPECIMEN Ordering Facility: [facility] Address: [address] [place] [address] Performed By: #### 2 777-1, , #### [facility] CLIA [id number] [address] [place] [address] [place] Immature granulocytes (Bld) [#/Vol] 0.08 10*3/uL Normal <0.10 [facility] Comment on above: Order Comment: Speci men Type: BLOOD SPECIMEN Ordering Facility: [facility] Address: [address] [place] [address] Performed By: #### 2 777-1, , #### [facility] CLIA [id number] [address] [place] [address] [place] Immature granulocytes/100 WBC (Bld) 0.8 % Normal [facility] Comment on above: Order Comment: Speci men Type: BLOOD SPECIMEN Ordering Facility: [facility] Address: [address] [place] [address] Performed By: #### 2 777-1, , #### [facility] CLIA [id number] [address] [place] [address] [place] Lymphocytes (Bld) [#/Vol] 0.23 10*3/uL Low 1.00-4.00 [facility] Comment on above: Order Comment: Speci men Type: BLOOD SPECIMEN Ordering Facility: [facility] Address: [address] [place] [address] Performed By: #### 2 777-1, , #### [facility] CLIA [id number] [address] [place] [address] [place] Lymphocytes/100 WBC (Bld) 2.2 % Normal [facility] Comment on above: Order Comment: Speci men Type: BLOOD SPECIMEN Ordering Facility: [facility] Address: [address] [place] [address] Performed By: #### 2 777-1, , #### [facility] CLIA [id number] [address] [place] [address] [place] MCH (RBC) [Entitic mass] 28.4 pg Normal 26.0-34.0 [facility] Comment on above: Order Comment: Speci men Type: BLOOD SPECIMEN Ordering Facility: [facility] Address: [address] [place] [address] Performed By: #### 2 777-1, , #### [facility] CLIA [id number] [address] [place] [address] [place] MCHC (RBC) [Mass/Vol] 30.7 g/dL Normal 30.5-36.0 [facility] Comment on above: Order Comment: Speci men Type: BLOOD SPECIMEN Ordering Facility: [facility] Address: [address] [place] [address] Performed By: #### 2 777-1, , #### [facility] CLIA [id number] [address] [place] [address] [place] MCV (RBC) [Entitic vol] 92.3 fL Normal 80.0-100.0 [facility] Comment on above: Order Comment: Speci men Type: BLOOD SPECIMEN Ordering Facility: [facility] Address: [address] [place] [address] Performed By: #### 2 777-1, 62888-0, #### [facility] CLIA [id number] [address] [place], [place] [address] [place] Monocytes (Bld) [#/Vol] 0.73 10*3/uL Normal <0.87 [facility] Comment on above: Order Comment: Speci men Type: BLOOD SPECIMEN Ordering Facility: [facility] Address: [address] [place] [address] Performed By: #### 2 777-1, , #### [facility] CLIA [id number] [address] [place] [address] [place] Monocytes/100 WBC (Bld) 6.9 % Normal [facility] Comment on above: Order Comment: Speci men Type: BLOOD SPECIMEN Ordering Facility: [facility] Address: [address] [place] [address] Performed By: #### 2 777-1, , #### [facility] CLIA [id number] [address] [place], [place] [address] [place] Neutrophils (Bld) [#/Vol] 9.58 10*3/uL High 1.45-7.50 [facility] Comment on above: Order Comment: Speci men Type: BLOOD SPECIMEN Ordering Facility: [facility] Address: [address] [place] [address] Performed By: #### 2 777-1, , #### [facility] CLIA [id number] [address] [place] [address] [place] Neutrophils/100 WBC (Bld) 89.9 % Normal [facility] Comment on above: Order Comment: Speci men Type: BLOOD SPECIMEN Ordering Facility: [facility] Address: [address] [place] [address] Performed By: #### 2 777-1, 89571-4, #### [facility] CLIA [id number] [address] [place], [place] [address] [place] Nucleated RBC (Bld) [#/Vol] 10*3/uL Normal <0.01 [facility] Comment on above: Order Comment: Speci men Type: BLOOD SPECIMEN Ordering Facility: [facility] Address: [address] [place] [address] Performed By: #### 2 777-1, , #### [facility] CLIA [id number] [address] [place], [place] [address] [place] Nucleated RBC/100 WBC (Bld) [Ratio] 0.0 /100 WBC Normal [facility] Comment on above: Order Comment: Speci men Type: BLOOD SPECIMEN Ordering Facility: [facility] Address: [address] [place] [address] Performed By: #### 2 777-1, , #### [facility] CLIA [id number] [address] [place] [address] [place] Platelet mean volume (Bld) [Entitic vol] 9.2 fL Normal 9.0-12.7 [facility] Comment on above: Order Comment: Speci men Type: BLOOD SPECIMEN Ordering Facility: [facility] Address: [address] [place] [address] Performed By: #### 2 777-1, , #### [facility] CLIA [id number] [address] [place] [address] [place] Platelets (Bld) [#/Vol] 488 10*3/uL High 150-400 [facility] Comment on above: Order Comment: Speci men Type: BLOOD SPECIMEN Ordering Facility: [facility] Address: [address] [place] [address] Performed By: #### 2 777-1, , #### [facility] CLIA [id number] [address] [place] [address] [place] RBC (Bld) [#/Vol] 2.61 10*6/uL Low 3.90-5.20 [facility] Comment on above: Order Comment: Speci men Type: BLOOD SPECIMEN Ordering Facility: [facility] Address: [address] [place] [address] Performed By: #### 2 777-1, 19195-6, 53495-1 #### [facility] CLIA [id number] [address] [place] [id number] [facility] [place] WBC (Bld) [#/Vol] 10.64 10*3/uL Normal 3.70-11.00 [facility] Comment on above: Order Comment: Speci men Type: BLOOD SPECIMEN Ordering Facility: [facility] Address: [address] [place] [address] Performed By: #### 2 777-1, 18928-1, #### [facility] CLIA [id number] [place] [address] [place] CONSULTon 01-09-2025 CONSULT HNO ID: [id number] Author: RAFFY PARDO RN Service: ? Author Type: Registered Nurse Type: Consults Filed: 01/09/2025 12:11 Note Text: STOMA CARE POST-OPERATIVE ASSESSMENT AND PATIENT EDUCATION Patient Name: Rola Aguilar Date: January 09, 2025 Time: 12:08 PM ET Care Outcome: ostomy assessment ET's Next Scheduled Visit: Thursday 01/11 for pouch fitting (pt refused today) - Pt stated, Please do not touch me today. The pt would only allow ostomy team to visually inspect the ostomy site, but not touch her at all. Stated that her pain is a 9 out of 10 in the abdomen. Bedside RN already aware. Pt has not allowed bedside nursing to assess her this am. STOMA ASSESSMENT Stoma type: End ileostomy Diameter: not measured Location: RLQ Protrusion: Budded Mucosal condition and color: Red and moist. Inder: No Mucocutaneous Junction: Not visible at this time Output: No: Peristomal Skin: Other: na Location of Skin Impairment: NA Treatment of Skin Impairment: NA Supportive Tissue: unknown Pouching System: Eleni New Image 2 1/4 inch soft convex wafer # [id number] with a drainable lock-n-roll pouch # [id number] Time Increment: 15 minutes Comments: see above Supplies Given: No PATIENT EDUCATION Skin Care Topic: Prevention Observations READINESS TO LEARN Cognitive Ability: Alert and oriented Motivation to Learn: Disinterested / avoidant Reluctant Family Support: None - Unavailable/disintere sted Instruction Provided To: Patient Patient Learns Best By: Undecided Factors Affecting Learning: Emotional Factors: Anxious Overwhelmed Physical Limitations Affecting Learning: Pain Signature: Raffy Pardo RN This is an electronically created document. IF PRINTED, PLEASE DO NOT REMOVE FROM THE CHART OR MODIFY PRINTED COPY. [facility] NURSING PROGon 01-09-2025 NURSING PROG HNO ID: [id number] Author: NAGA FERRELL RN Service: Nursing Author Type: Registered Nurse Type: Nursing Progress Note Filed: 01/09/2025 18:42 Note Text: Nursing Progress Note: Pt refused to have assessment completed by RN. 0811: Sent text page to surgical team, pt has an unmeasured emesis, which included 1 pill. Pt also requesting that Valium be changed to PRN for anxiety. Pt is having emesis, refuses to have sheet changed with emesis present. Pt still refusing to have assessment completed by RN. Pt declined wound dressing change. 1625: Sent text page to surgical team per pt request, pt would like another medication for nausea. Pt reports that zofran and reglan do not help with nausea. 1841: Sent second text page to surgical team regarding the nausea medications. [facility] OPERATIVE NOon 01-09-2025 OPERATIVE NO HNO ID: [id number] Author: SHAQ THAKKAR MD Service: Colorectal Author Type: Physician Type: Operative Report Filed: 01/29/2025 11:49 Note Text: [facility] - Operative Report ROLA AGUILAR : 1995 AGE: 29. SEX: F PATIENT TYPE: I HOSP SVC: Surgical LOCATION: [id number] ATTENDING PHYSICIAN: Shaq Thakkar M.D. CSN NUMBER: [id number] DATE OF SURGERY/PROCEDURE: 01/08/2025 INCISION/PROCEDURE START TIME: 12:07 PM INCISION CLOSE/PROCEDURE END TIME: 5:56 PM PREOPERATIVE DIAGNOSIS: Severe Crohn colitis, small intestinal Crohn enteritis, severe perianal complex fistulizing Crohn's, nonhealing decubitus wound. POSTOPERATIVE DIAGNOSIS: same SURGEON: Shaq Thakkar M.D. VEST FRONT PRESSER: Jodie Jacobs. SURGERY/PROCEDURE: Laparoscopic total proctocolectomy, removal of the terminal ileum with an end ileostomy, right colon, mid colon, left colon, sigmoid colon, rectum. 22 modifier for requiring a perineal proctectomy and abdominoperineal resection from below. Attending Note For the the above procedure, I was physically present during the critical portion and immediately available during the entire procedure. Resident retracted and Fellow exposed, under direct supervision and the remainder of the procedure was performed by the primary surgeon/proceduralist with assistance. Signature: Shaq Thakkar MD Date: 01/29/2025 Time: 11:48 AM ANESTHESIA: General ESTIMATED BLOOD LOSS: 10. INTRAVENOUS FLUIDS: Per Anesthesia. OPERATIVE TIME: 5 hours. DESCRIPTION OF PROCEDURE: The patient was brought to the operating room and placed in the lithotomy position. Pneumoperitoneum was established with an infraumbilical 10 mm balloon port after the ileostomy was taken down and closed. We then mobilized the right colon with monopolar and bipolar cautery with blunt and sharp dissection, the entire transverse colon from behind the lesser sac, splenic flexure, hepatic flexure, and left colon. In succession, we took the ileocolic pedicle, the right branch of the middle, middle colic, left branch of the middle, IMV, left colic, superior rectal artery and vein completely. We then divided any remaining mesentery between swept the left and right ureters out of harm's way, and we opened the left and right peritoneal reflection, and entered the pelvis. We then worked between the pelvic fascia and mesorectal fascia to get to the bottom of the pelvic floor and opened the anterior peritoneal reflection. The rectum was very thickened, full of purulent material, and active contained perforation in the pelvis. Dissection continued all the way down to the pelvic floor as mentioned above. We then worked below and did an abdominoperineal resection from below. We opened in a ella- shaped fashion the perineum, both ischioanal spaces, and the posterior anal space, which was in continuity with a large chronic decubitus wound. It was 8 x 2 cm, 8 cm long with 2 cm wide. We debrided that wound with curettes down to the subcutaneous level We took down 2 very high supralevator and suprasphincteric fistulas in the left and right side and connected those with our dissection. We did place 1 seton in the left anterolateral region to preserve some of the skin in this area, and then we copiously after removing the entire specimen irrigated the pelvis. The specimen was actually removed through the ostomy site. We transected the terminal ileum and healthy area about diseased terminal ileum 12 cm ileocecal valve. Specimen was passed off the field. The ileum was then oriented and brought out a newly marked ileostomy site. All sites were closed in 2 layers and irrigated and then closed over a Ariana drain. The perineum was closed by closing the levator muscle with interrupted 0 Vicryl sutures and very loosely reapproximated 40% of the skin, left the posterior aspect in continuity with the decubitus ulcer. Subsequently, we matured the ileostomy with interrupted 3-0 Vicryl sutures, and she was transferred to Recovery in good condition. Shaq Thakkar M.D. BC:[id number] /[id number] Normal [facility] XR ABDOMEN 1V SUPINEon 01-09 XR ABDOMEN 1V SUPINE * * *Final Report* * * DATE OF EXAM: Jan 09 2025 9:27PM FVX 5289 - XR ABDOMEN 1V SUPINE / PROCEDURE REASON: Evaluate tube, line or lead position * * * * Physician Interpretation * * * * EXAM(S): XR ABDOMEN 1V SUPINE CLINICAL HISTORY: Evaluate tube, line or lead position COMPARISONS: None. FINDINGS: Nasogastric tube in satisfactory position, side port below the GE junction. Mild gaseous distention of imaged bowel. Pneumoperitoneum, likely postoperative in nature. Surgical material projects over the right hemiabdomen, partially imaged. IMPRESSION: Nasogastric tube in satisfactory position. Postoperative findings as above. Test Man: MARK Transcribe Date/Time: Jan 09 2025 10:49P Dictated by : ALDO MONAE MD This examination was interpreted and the report reviewed and electronically signed by: ALDO MONAE MD on Jan 09 2025 10:50PM EST [id number] [facility] XR ABDOMEN 1V SUPINE * * *Final Report* * * DATE OF EXAM: Jan 09 2025 8:10PM FVX 5289 - XR ABDOMEN 1V SUPINE / PROCEDURE REASON: Ileus vs obstruction * * * * Physician Interpretation * * * * CLINICAL: Patient is status post recent total proctocolectomy and end ileostomy TECHNIQUE: Single KUB of the abdomen. COMPARISON: 01/17/2023 FINDINGS: There is gaseous distention of the stomach with the transverse dimension of the stomach measuring 13 cm. There is mild gaseous distention of a upper small bowel loops and a few small bowel loops in the left upper quadrant and the abdomen. Midline surgical melody are seen in the right side of the abdomen.. A curvilinear probable postoperative drain overlies the pelvic inlet. No pathologic calcifications are seen. The osseous structures are grossly normal. IMPRESSION: There is significant gaseous distention with mild small bowel dilatation likely related to mild postoperative ileus. Test Man: [facility] Transcribe Date/Time: Jan 10 2025 8:08A Dictated by : PARTH MIRANDA MD This examination was interpreted and the report reviewed and electronically signed by: PARTH MIRANDA MD on Jan 10 2025 8:12AM EST [id number] N [facility] ANES POSTPROC EVALon 025 ANES POSTPROC EVAL HNO ID: [id number] Author: TANA MONTEIRO MD Service: Anesthesiology Author Type: Anesthesiologist Type: Anesthesia Postprocedure Evaluation Filed: 01/08/2025 18:59 Note Text: POST ANESTHESIA EVALUATION NOTE : 1995 Procedure Summary Date: 01/08/25 Room / Location: OR12 / [facility] OR Anesthesia Start: 1126 Anesthesia Stop: 1819 Procedure: LAPAROSCOPIC PROCTECTOMY COMPLETE W/ ABDOMINOPERINEAL W/ COLOSTOMY Diagnosis: Crohn's disease of perianal region, with fistula (HCC) (Crohn's disease of perianal region, with fistula (HCC) [K50.113, K60.30]) Surgeons: Shaq Thakkar MD Responsible Provider: Jeff Mc MD Anesthesia Type: general ASA Status: 3 Anesthesia Type: general Airway Type: ETT Last Vitals Vitals Value Taken Time BP 88/58 01/08/25 1845 Temp 36.7 ?C (98.1 ?F) 01/08/25 1815 Pulse 83 01/08/25 1857 Resp 16 01/08/25 1857 SpO2 97 % 01/08/25 185 Vitals shown include unfiled device data. Post Anesthesia Patient Status Patient Evaluation: PACU. PACU/ICU Patient Condition: stable. Anticipated Disposition: inpatient floor planned admission. Neurological Status: aware and responsive. Pulmonary Status: breathing comfortably on supplemental oxygen Airway Control: returned to baseline unsupported. Cardiovascular Status: stable. Pain Management: clinically adequate - multimodal analgesia pain management approach Postoperative Hydration: acceptable. Intraoperative Events: no significant anesthesia events Post Operative Nausea/Vomiting Status: no significant post operative nausea or vomiting Recommendation: continue current plan of care. Anesthesia Observations No Documentation SIGNATURE: Tana Monteiro MD PATIENT NAME: Rola Aguilar DATE: January 08, 2025 TIME: 6:58 PM CSN: [id number] [facility] ANES PRE-OPon 01-08-2025 ANES PRE-OP HNO ID: [id number] Author: DELFINA NORWOOD MD Service: Anesthesiology Author Type: Physician Type: Anesthesia Preprocedure Evaluation Filed: 01/08/2025 09:37 Note Text: ANESTHESIOLOGY DAY OF SURGERY NOTE : 1995 Procedure Information Date/Time: 01/08/25 0950 Procedure: LAPAROSCOPIC PROCTECTOMY COMPLETE W/ ABDOMINOPERINEAL W/ COLOSTOMY Location: OR12 / [facility] OR Surgeons: Shaq Thakkar MD Estimated body mass index is 19.21 kg/m? as calculated from the following: Height as of 12/24/24: 167.6 cm (5' 6 ). Weight as of 12/24/24: 54 kg (119 lb 0.8 oz). Most recent hematocrit and potassium results: Hematocrit 31.8 12/24/2024 Potassium 3.7 12/24/2024 Relevant Problems NEURO-PSYCH (+) Generalized seizures (HCC) I - PHYSICAL EVALUATION AIRWAY Patient intubated: No. Tracheostomy tube not present Mallampati: I. TM distance: >3 FB. Neck ROM: full ROM without neurological symptoms. Mouth opening: adequate. Short neck: no. Thick neck: no II - ANESTHESIA PLAN ASA Score: 3 Anesthetic Plan: general Airway type: ETT NPO Status: adequate Beta Olena Monitoring Plan Monitoring plan: standard ASA. Post Procedure Analgesic Plan Postoperative analgesic plan: multimodal analgesia. Informed Consent Anesthetic risks, benefits, alternatives, personnel and consent discussed: yes. Patient / Responsible Libertarian agrees to proceed: yes Patient / Surrogate agrees to blood products: Yes Vitals Value Taken Time BP 108/74 01/08/25923 Pulse 110 01/08/25923 Resp 20 01/08/25923 Temp 36.4 ?C (97.5 ?F) 01/08/25923 SpO2 99 % 01/08/25923 Facility-Administered Medications as of 01/08/2025 Medication Dose Route Frequency - lidocaine (PF) 10 mg/mL (1 %) 1-2 mg injection (XYLOCAINE) 0.1-0.2 mL INTRADERMAL PRN - lactated ringers iv infusion 5-30 mL/hr INTRAVENOUS CONTINUOUS - NaCl 0.9% iv flush bag 20 mL INTRAVENOUS PRN - cefTRIAXone 2 g in D5W 100 mL Vial-Bag (ROCEPHIN) 2 g INTRAVENOUS Pre-Op Once - metroNIDAZOLE iv piggyback 500 mg in NaCl (iso-osmotic) 100 mL (FLAGYL) 500 mg INTRAVENOUS Pre-Op Once - alvimopan 12 mg cap(s) (ENTEREG) 12 mg ORAL Pre-Op Once - heparin 5,000 Units injection 5,000 Units SUBCUTANEOUS ONCE Outpatient Medications as of 01/08/2025 Medication Sig - KEPPRA 250 mg tablet Take 500 mg by mouth. - busPIRone (BUSPAR) 10 mg tablet Take 10 mg by mouth three times a day. - dicyclomine HCl (BENTYL ORAL) - promethazine (PHENERGAN) 25 mg tablet Take 25 mg by mouth. - busPIRone (BUSPAR) 10 mg tablet - vedolizumab (ENTYVIO PEN) 108 mg/0.68 mL pen Inject 108mg (1 pen) subcutaneously every other week. - vedolizumab (ENTYVIO PEN) 108 mg/0.68 mL pen Inject 108 mg (1 pen) subcutaneously every other week. I have interviewed and examined the patient. I have reviewed the medical record and/or the pre-anesthesia evaluation, pertinent labs, and test results. This contains updated information obtained within 48 hours of Surgery/Procedure. SIGNATURE: Delfina Norwood MD PATIENT NAME: Rola Aguilar DATE: January 08, 2025 TIME: 9:37 AM CSN: [id number] [facility] BRIEF OP NOTon 01-08-2025 BRIEF OP NOT HNO ID: [id number] Author: BRANDON JACOBS MD Service: Colorectal Author Type: Fellow Type: Brief Op Note Filed: 01/08/2025 18:17 Note Text: COLORECTAL SURGERY BRIEF OP NOTE LOG ID: [id number] Surgery/Procedure Date: 01/08/2025 Incision/Procedure Start Time: 12:07 PM Incision Close/Procedure End Time: 6:14 PM/ 5:56 PM Surgeon(s) and Life Care Planner(s): Surgeons and Role: * Shaq Thakkar MD - Primary * Casimiro Cruz MD - Resident - Assisting * Brandon Jacobs MD - Resident - Assisting No Additional Staff Procedure(s): Takedown of diverting loop ileostomy and formation of end ileostomy (stoma moved from RUQ to RLQ) Laparoscopic total proctocolectomy Abdominoperineal resection Insertion of seton left anterolateral fistula Anesthesia: General Findings: Severely diseased rectum, sigmoid, left colon, and transverse colon, and distal ileum leading up to distal limb of diverting loop ileostomy Anal stenosis with large, suprasphincteric fistula left anterolateral Anterior rectum adherent to vagina Posterior midline ulceration Tubes/Drains: PAGE in pelvis, [place] drain in previous ileostomy site (RUQ), Seton in left anterolateral perineal fistula Estimated Blood Loss: 300 mls Specimens: Proctocolectomy Wound Classification: Class 4, operative dirty wound with acute bacterial inflammation Pre-Op/Pre-Procedure Diagnosis: Pre-Op Diagnosis Codes: * Crohn's disease of perianal region, with fistula (HCC) [K50.113, K60.30] Post-Op/Post-Procedur e Diagnosis: Same SIGNATURE: Brandon Jacobs MD PATIENT NAME: Rola Aguilar DATE: January 08, 2025 TIME: 6:14 PM PAGER/CONTACT #: [email or web address] [facility] CONSULTon 01-08-2025 CONSULT HNO ID: [id number] Author: RAFFY PARDO RN Service: ? Author Type: Registered Nurse Type: Consults Filed: 01/08/2025 10:35 Note Text: ANCILLARY OSTOMY CARE NOTE SERVICE DATE: 01/08/2025 SERVICE TIME: 10:35 AM Ostomy consult received from Colorectal surgical team for stoma marking . Patient assessed in the sitting, standing, bending and supine positions. Deep creases/folds noted at level of umbilicus, as well as, low in the pubic area; however, there is suitable surface area in 2 quadrants for marking. 2 sites/one in each quadrant were chosen: on the flattest possible surface/away from deep creases and folds, in the patient's visual field, within the rectus muscle/within the nipple line, and away from the umbilicus/rib cage. Cleansed with alcohol and marked with single use surgical marker. Assessment/Plan -stoma site marking complete -air liaison and special staff to monitor ponce and place Tegaderm clear transparent dressings as needed -Plan per surgical team, will remain available as needed. To contact Wound/Ostomy Care, please call the Wound Care Hotline at [phone] and leave a message. [facility] HISTORY PHYSICALon HISTORY PHYSICAL HNO ID: [id number] Author: BRANDON JACOBS MD Service: Colorectal Author Type: Fellow Type: H&P Filed: 01/08/2025 10:46 Note Text: UPDATED HISTORY AND PHYSICAL EXAMINATION SERVICE DATE: 01/08/2025 SERVICE TIME: Brandon Jacobs MD PHYSICAL EXAM MUST BE COMPLETED ON ADMISSION The History and Physical (completed in the past 30 days) has been reviewed and the patient has been examined. The contents accurately reflect the patient's condition with the following additions or revisions since the HANDP was completed. Examination indicates no changes. Lungs: clear to auscultation, no wheezing or rhonchi Heart: RRR without murmur, gallop, or rubs. No ectopy This HANDP can be found in the Electronic Medical Record dated December 24, 2024. SIGNATURE: Brandon Jacobs MD PATIENT NAME: Rola Aguilar DATE: January 08, 2025 TIME: 10:45 AM [facility] NURSING PROGon 01-08-2025 NURSING PROG HNO ID: [id number] Author: CARRIE SAMAYOA, SHAHBAZ Service: Nursing Author Type: Registered Nurse Type: Nursing Progress Note Filed: 01/09/2025 01:48 Note Text: Other: SROD at bedside, orders received for pain and anxiety. Ptx updated on current orders. 2230: Pain management informed of consult [facility] NURSING PROG HNO ID: [id number] Author: CLINT KRUSE RN Service: Nursing Author Type: Registered Nurse Type: Nursing Progress Note Filed: 01/08/2025 20:25 Note Text: Transfer Note: PATIENT NAME: Rola Aguilar Patient Location: [place] [address] [address] Room: [place] [address] Patient transferred into room/unit [facility] . Pt very anxious, surgery notified . [facility] NURSING PROG HNO ID: [id number] Author: ANNE RIDLEY RN Service: ? Author Type: Registered Nurse Type: Nursing Progress Note Filed: 01/08/2025 17:50 Note Text: One ariana drain, left underneath the staple wires on the abdominal incision. One vessel loop left running through the perineal incision to the latera fistula. [facility] Pathology biopsy report Nicko (Tiss)on 01-08-2025 ADDENDUM 1: [facility] Comment on above: Order Comment: Speci men Type: BLOOD SPECIMEN Ordering Facility: [facility] Address: [address] [place] [address] Result Comment: A An immunohistochemical stain for CMV performed on block A3 is negative. JEL 01/15/2025 Addendum electronically signed by Anoop Martino MD on 01/15/2025 at 1213 EDT Performed By: #### 5 7021-8 #### [facility] CLIA [id number] [place] [address] [place] AP DISCLAIMER [facility] Comment on above: Order Comment: Speci men Type: BLOOD SPECIMEN Ordering Facility: [facility] Address: [address] [place] [address] Result Comment: Milind palacios Developed Test (LDT) Disclaimer: Performance characteristics of immunohistochemical, immunofluorescent, and chromogenic in-situ hybridization tests have been determined by the performing laboratory within [facility]'s [facility] Pathology and Laboratory Medicine Department ([facility], [facility], [facility], [facility], [facility], [facility], or [facility]) in a manner consistent with CLIA requirements. One or more of these tests may not have been cleared or approved by the FDA. [facility] is regulated under CLIA as qualified to perform high-complexity testing. These tests are used for clinical purposes. These should not be regarded as investigational or for research. Positive and negative controls stain appropriately. Performed By: #### 5 7021-8 #### [facility] CLIA [id number] [address] [place] [address] [place] CASE REPORT [facility] Comment on above: Order Comment: Speci men Type: BLOOD SPECIMEN Ordering Facility: [facility] Address: [address] [place] [address] Result Comment: Surg ica Pathology Report Case: [id number] Authorizing Provider: Shaq Thakkar MD Collected: 01/08/2025 03:34 PM Ordering Location: [facility] Received: 01/08/2025 05:01 PM Operating Room Pathologist: Anoop Martino MD Specimens: A) - Colon, Total Abdominal Colectomy, with Omentum B) - Anus, Resection, with Rectum Performed By: #### 5 7021-8 #### [facility] CLIA [id number] [address] [place] [address] [place] CLINICAL HISTORY [facility] Comment on above: Order Comment: Speci men Type: BLOOD SPECIMEN Ordering Facility: [facility] Address: [address] [place] [address] Result Comment: Pre- op diagnosis: Crohn's disease of perianal region, with fistula (HCC) [K50.113, K60.30] Performed By: #### 5 7021-8 #### [facility] CLIA [id number] DIAGNOSIS COMMENT [facility] Comment on above: Order Comment: [place] Type: BLOOD SPECIMEN Ordering Facility: [facility] Address: [address] [place] [address] Result Comment: A. H istologic sections of the colon show diffuse chronic active colitis with extensive mucosal ulceration, transmural lymphoid aggregates, and numerous non-necrotizing granulomas. The appendix displays focal active inflammation, scattered non-necrotizing granulomas, and acute serositis. Histologic sections of the terminal ileum show patchy chronic active enteritis with ulcer, pyloric gland metaplasia, transmural lymphoid aggregates, and scattered non-necrotizing granulomas. These findings are consistent with the patient's clinical history of Crohn's disease. Given the presence of ulcers, an immunohistochemical stain for cytomegalovirus (CMV) has been ordered, and the result will be reported in an addendum. B. Histologic sections of the rectum and anal canal show chronic active proctitis with extensive mucosal ulceration and numerous non-necrotizing granulomas. Performed By: #### 5 7021-8 #### [facility] CLIA [id number] [address] [place] [address] FINAL DIAGNOSIS [facility] Comment on above: Order Comment: [place] Type: BLOOD SPECIMEN Ordering Facility: [facility] Address: [address] [place] [address] Result Comment: A. C olon, terminal ileum, and appendix, resection: - Pathologic changes consistent with active Crohn's disease involving the colon and terminal ileum, negative for dysplasia (see comment). - Benign lymph nodes, including several with non-necrotizing lymph nodes. B. Rectum and anus, resection: - Pathologic changes consistent with active Crohn's disease with focal transmural defect, negative for dysplasia (see comment). JEL 01/13/2025 at 1427 EDT Performed By: #### 5 7021-8 #### [facility] CLIA [id number] [address] [place] [address] FINAL PERFORMING LAB [facility] Comment on above: Order Comment: [place] Type: BLOOD SPECIMEN Ordering Facility: [facility] Address: [address] [place] [address] Result Comment: Diag nostic interpretation performed at: [facility], [address] [place] [address] CLIA# [id number] Pathology Secretary: Bronson Cramer MD Performed By: #### 5 7021-8 #### [facility] CLIA [id number] [address] [place] [address] [place] GROSS DESCRIPTION [facility] Comment on above: Order Comment: Speci men Type: BLOOD SPECIMEN Ordering Facility: [facility] Address: [address] [place] [address] Result Comment: Wilmar arguello, Total Abdominal Colectomy Received in formalin designated colon, total abdominal colectomy with omentum is a specimen consisting of a segment of small bowel (29.5 cm in length and averaging 2.8 cm in circumference), segment of colon (83 cm in length and ranging from 2.8 to 7.3 cm in circumference), and appendix (3.5 cm in length by 0.4 cm in diameter). The proximal margin is inked blue, and the distal margin is inked orange. From the distal margin extending to 5 cm from the ileocecal valve the mucosal surface is smith-red and granular with longitudinal ridges, cobblestone areas, and focal areas of ulceration. The distal 30 cm of the bowel wall does not lie flat. The wall ranges from 0.3 to 0.5 cm in thickness. No fistula tracts are grossly appreciated. No diverticula are identified. The serosal surface is smith-pink and smooth with creeping fat. The ileocecal valve is slightly narrowed measuring 2 cm in circumference and is smith-pink and granular with focal possible ulceration. The small bowel mucosa starting at 8 cm from the proximal margin is smith-pink and granular with longitudinal to normal mucosal ridges. The remainder of the mucosal surface is smith-pink and granular with normal mucosal ridges. The wall averages 0.3 cm in thickness. The serosal surface is smith-pink and smooth with focal areas of creeping fat. The serosal surface of the appendix is smith and smooth. Sectioning reveals a pinpoint lumen devoid of fecalith, purulent material, or stones. The wall averages 0.2 cm in thickness, and no lesions or perforations are identified. The attached omentum measures 37 x 15.2 x 0.9 cm and is grossly unremarkable. Sectioning of the attached soft tissue reveals multiple smith-pink to smith-red lymph nodes measuring up to 0.9 cm in greatest dimension. Cardiovascular Disease Specialist sections are submitted from distal to proximal as follows: A1 perpendicular proximal and distal margins, A2 10 cm, A3 20 cm, A4 30 cm, A5 40 cm, A6 50 cm, A7 60 cm, A8 70 cm, A9 80 cm, A10 cecal pouch, A11-A12 ileocecal valve, A13 20 cm from proximal margin, A14 10 cm from proximal margin, A15 appendix, A16 left colon lymph nodes, A17 transverse colon lymph nodes, A18 right colon lymph nodes. BF January 11, 2025 1:24 PM Gross examination performed at [facility], [address] [place] [address] B. Anus, Resection Received in formalin designated anus resection with rectum are two segments of bowel. The first segment of bowel measures 5.5 cm in length by 3.6 cm in circumference. The proximal margin is inked blue, and the distal margin is inked orange. The distal margin is extensively roughened, irregular, and hemorrhagic. No cutaneous tissue is grossly appreciated. The remainder of the mucosal surface is smith-red and granular. There is a focal slightly depressed area containing hemorrhagic material located 0.7 cm from the distal margin. A definitive fistula tract is not grossly appreciated. The wall averages 0.8 cm in thickness. Also received in the same container is an unoriented irregular segment of bowel with attached cutaneous tissue measuring 7.5 cm in length and averaging 5.4 cm in circumference. The proximal margin is inked green, and the distal margin is inked red. The mucosal surface is red-brown and granular. The cutaneous tissue is smith-brandon and smooth. A transmural defect is identified measuring 2 x 1.5 cm at the dentate line. Cardiovascular Disease Specialist sections are submitted as follows: B1 perpendicular margins first segment of bowel, B2 slightly depressed area first segment of bowel, B3 3 cm from distal margin first segment of bowel, B4 perpendicular margins second segment, B5-B6 adjacent to transmural defect second segment of bowel. January 11, 2025 1:37 PM Gross examination performed at [facility], [address] [place] [address] Performed By: #### 5 7021-8 #### [id number] [address] [place] [address] [place] ED Clinical Summaryon 2024 ED Clinical Summary ED Clinical Summary [address] [address] ED Clinical Summary Person Information Name: ROLA AGUILAR [place] Age: 29 Years : 1995 Sex: Female Language: South African PCP: [facility], . Marital Status: Single Visit Id: Visit Reason: Dizziness; Abdominal pain; Rectal bleed; Rectal pain; ABDOMINAL PAIN, RECTAL BLEEDING, DIZZY Speciality: Acuity: 3 Enc Type: Emergency Med Service: Emergency Arrival: 01/03/2025 21:13:34 Discharge: 01/04/2025 00:28:57 LOS: 000 03:15 Checkin: 01/03/2025 21:13:34 Checkout: 01/04/2025 00:28:57 Dispo Type: Home (Routine DC) EVENTS: Event Name Event Status Request Date/Time Start Date/Time Complete Date/Time Arrive Complete 01/03/2025 21:13:34 01/03/2025 21:13:34 01/03/2025 21:13:34 Document Home Meds Request 01/03/2025 21:13:34 Triage Complete 01/03/2025 21:13:34 01/03/2025 21:23:34 01/03/2025 21:23:34 Bed Assign Complete 01/03/2025 21:15:05 01/03/2025 21:15:05 01/03/2025 21:15:05 Dr Exam Complete 01/03/2025 21:15:05 01/03/2025 21:18:12 01/03/2025 21:18:12 RN Exam Complete 01/03/2025 21:15:05 01/03/2025 21:39:39 01/03/2025 21:39:39 Registration Complete 01/03/2025 21:15:42 01/03/2025 21:15:42 01/03/2025 21:15:42 Reg Complete Request 01/03/2025 21:15:42 Reg Bed Request Complete 01/03/2025 21:15:42 01/03/2025 21:15:42 01/03/2025 21:15:42 Registration Request 01/03/2025 21:18:12 EKG Complete 01/03/2025 21:21:10 01/03/2025 22:54:55 X-Ray Complete 01/03/2025 22:22:08 01/03/2025 22:30:06 01/03/2025 23:10:11 Meds Admin Complete 01/03/2025 22:22:08 01/03/2025 22:45:31 Pending Labs Request 01/03/2025 22:22:08 Lab Complete 01/03/2025 22:22:08 01/03/2025 23:01:22 Patient Care Complete 01/03/2025 22:22:08 01/03/2025 22:24:39 Pending Labs Complete 01/03/2025 22:37:07 01/03/2025 22:37:07 01/03/2025 23:01:22 Lab Complete 01/03/2025 22:37:07 01/03/2025 22:37:07 01/03/2025 23:01:22 Wet Read Request 01/03/2025 23:10:11 Meds Admin Complete 01/03/2025 23:22:58 01/03/2025 23:30:00 Discharge Complete 01/03/2025 23:39:41 01/04/2025 00:35:05 01/04/2025 00:35:05 Transfer Complete 01/04/2025 00:35:05 01/04/2025 00:35:05 01/04/2025 00:35:05 ADDRESS: [address] [place] [id number] [facility] DOC NOTES: MEDICAL INFORMATION: Prescriptions Given: Medications to Continue with No Changes Other Medications busPIRone (busPIRone 10 mg Tab) 1 Tablets By Mouth 2 times a day. cephalexin (Keflex 500 mg Cap) 1 Capsules By Mouth every 12 hours for 5 Days. Refills: 0. hydrOXYzine (hydrOXYzine hydrochloride 25 mg Tab) 1 Tablets By Mouth 3 times a day as needed for anxiety. Refills: 0. levetiracetam (Keppra 250 mg Tab) [...] hours as needed for pain. Refills: 0. promethazine (promethazine 25 mg Tab) 1 Tablets By Mouth every 6 hours as needed as needed for nausea/vomiting. Refills: 0. promethazine (promethazine 25 mg Tab) 1 Tablets By Mouth every 4 hours. Refills: 0. PATIENT EDUCATION INFORMATION: Instructions: Chronic Pain, Adult Follow up: With: Address: When: . [place] [id number] [facility] () In 3 days 01/06/2025 Comments: Call the office of your primary care doctor to arrange for follow-up within the above-stated timeframe. Follow-up with your primary care doctor about this ED visit. You should review your labs, imaging, and diagnoses from this ED visit with your primary care physician. There are occasionally non-emergent findings that require additional follow-up after your ED visit. If you were prescribed medications you should discuss possible side-effects and drug interactions with your pharmacist. Call 911 or go to the nearest Emergency Department if you develop any new or worsening symptoms. Seek immediate medical attention if you develop: worsening abdominal pain, new or worsening nausea, new or worsening vomiting, new or worsening diarrhea, chest pain, shortness of breath, pain with urination, problems urinating, fever, chills, weakness, or any new or worsening symptoms. Follow-up with your surgeon at the [facility] DIAGNOSIS: Abdominal pain, chronic, generalized; Anxiety; Drug-seeking behavior; Other chronic pain Normal [facility] ED Note-Nursingon 01-04-2025 ED Note-Nursing ED Note-Nursing ED physician to bedside per pt request. ED physician stated pt should be [facility]. ED physician also educated pt to take her pain medication at home as prescribed by her surgeon. Pt. continued to refuse to leave until she got IV pain medication. Pt. stated she refused to sign d/c instructions. Pt. escorted out by security at 0028. Normal [facility] ED Note-Physicianon 01-05-20 ED Note-Physician ED Note-Physician Basic Information Time Seen: Manan LEDESMA, Nellie Andersen 12/30/2024 17:51 Chief Complaint patient presents with blood coming from rectum with abdominal pain that started yesterday with bloody emesis today. hx ileostomy hx chrons disease History of Present Illness Patient is a 29-year-old female with a history of anxiety, bipolar disorder, seizures, tachycardia, pressure ulcers, and Crohn's disease status post ileostomy who presents to the ED with N/V and rectal bleeding that began yesterday. Patient states she was admitted to [facility] where her colorectal surgeon is located a couple of weeks ago. At this time she had exploratory laparotomy where 3 fistulous were found and a Seton drain was placed. Patient states she was placed on Augmentin and that she finished approximately 6 days ago. She notes today she had 1 episode of emesis with a pink tinge to it along with light pink drainage from her rectum. Patient notes she was previously taking oxycodone for pain, but has not been taking it as she does not feel it has been helping. Patient states she is scheduled to have another surgery on 01/08. She contacted her colorectal surgeon yesterday and was told she was unable to have the surgery pushed up. Patient states the abdominal pain she is experiencing now appears to be baseline. She denies any fevers or urinary changes. Review of Systems A 10 point review of systems is negative except as noted above. Medical and Surgical History: Reviewed and noted Social history: Lives at home Family History: Reviewed. Tobacco: former Physical Exam Vitals & Measurements T: 36.7 ???C(Oral) HR: 108(Peripheral) RR: 18 BP: 111/70 SpO2: 98% HT: 167 cm WT: 52.5 kg BMI: 18.82 General: The patient appears well and in no apparent distress. Patient is resting comfortably on cart. Skin: Warm, dry, no pallor noted. Head: Normocephalic, atraumatic Neck: trachea midline Eye: PERRLA, EOMI ENT: Moist mucus membranes Cardiovascular: Regular rate normal peripheral perfusion Respiratory: No respiratory distress no accessory muscle use no obvious audible wheezing Chest Wall: no deformity Musculoskeletal: normal ROM, no deformity, no swelling GI: Diffuse abdominal tenderness to palpation, soft no obvious distention. No rebound or rigidity. No guarding. Left sided ileostomy in place with prolapsed stoma, stool in ileostomy is brown in color, no dark tarry stool or parth bleeding, no surrounding erythema Neurological: A&O moves all extremities equal strength and symmetry Psychiatric: Cooperative and appropriate Medical Decision Making Patient is a 29-year-old female with a history of anxiety, bipolar disorder, seizures, tachycardia, pressure ulcers, and Crohn's disease status post ileostomy who presents to the ED following 1 episode of pink-tinged emesis and rectal drainage. Patient is hemodynamically stable and afebrile. She is given morphine and Zofran. Lab work is reviewed. Hemoglobin of 9.5 slightly decreased from 9.9. Platelets of 529 are improved from prior. Potassium at 3.3, patient is given oral potassium replacement. Alk phos of 143 is decreased from prior. Urinalysis is positive for leukocyte esterase and WBC. CT abdomen/pelvis is showing active inflammation in the colon without evidence of perforation, abscess, or obstruction. There is no acute abnormality in the organs. Hepatic steatosis. Splenomegaly. Perirectal fistulas and seton. No abscess. No soft tissue gas. Patient was updated the results. On reevaluation she is tearful and holding her abdominal region, noting continued pain. She is therefore given Dilaudid. Patient has not had any episodes of emesis while in the ED. Patient's lab work and clinical picture today are improved from prior evaluations in the ED. I do feel outpatient follow-up with her colorectal surgeon is appropriate. On reevaluation patient noted improvement in pain. Patient does not note any urinary symptoms, but is electing for antibiotic treatment at this time rather than awaiting culture results. She is also requesting a prescription for Ativan as the abdominal pain does lead to frequent panic attacks. I discussed the dangers of Ativan with narcotics and declined this. OARSS report is ran. She is given a short dose of hydroxyzine along with short dose of Percocet. Patient has a follow-up appointment with her primary care provider tomorrow. She was advised to return to the ED with any worsening symptoms. Patient is agreeable with the plan and all questions were answered. Assessment/Plan Acute UTI (urinary tract infection) (N39.0: Urinary tract infection, site not specified) Crohn's disease (K50.90: Crohn's disease, unspecified, without complications) N&V (nausea and vomiting) (R11.2: Nausea with vomiting, unspecified) Orders: cephalexin, 500 mg = 1 cap(s), Cap, Oral, Once, Stop date 12/30/24 22:00:00 EDT, STAT, Start date 12/30/24 22:00:00 EDT, 12/30/24 22:00:00 EDT cephalexin, 500 mg = 1 cap(s), (more content not included)... Normal [facility] Comment on above: Result Comment: Elec tronically Signed By: Nellie Hinkle PA-C\.br\Date and Time Signed: 12/31/24 00:06 EDT\.br\Electronically Co-Signed By: Heriberto Cervantes MD\.br\Date and Time Co-Signed: 01/04/25 13:49 EDT ED Note-Physician ED Note-Physician Basic Information Time Seen: Elliot Macias DO 01/03/2025 21:18 Chief Complaint Pt to ED for c/o abd pain, rectal pain/ bloody drainage since this morning. Pt states scheduled sx at [facility] for Crohns. Denies fevers. States intermittent dizziness thorugh out the day. Illiostomy presnet on arrival to ED. History of Present Illness 29-year-old female to the emergency department with multiple complaints. Patient reports that she has chronic abdominal pain due to her severe Crohn's disease. She reports that she has persistent rectal pain and bloody drainage that has been ongoing since the placement of a drain at the end of November. She reports that she gets all of her care through [facility]. She has an upcoming major surgery planned for proctectomy this week. Patient reports that she was going to drive there tonight in hopes they would be able to admit her but she did not think she could make it all the way there due to panic/anxiety. Patient reports that when she stands up she feels dizzy. She also reports she has a seizure disorder, she did take her Keppra today but reports that she feels like her anxiety is going to make her have a seizure in any moment. She reports she has not been eating or drinking much. She reports normal ileostomy output. Review of Systems A 10 point review of systems is negative except as noted above. Medical and Surgical History: Reviewed and noted Social history: Lives at home Tobacco: Denies Physical Exam Vitals & Measurements T: 36.8 ???C(Oral) HR: 138(Peripheral) RR: 20 BP: 110/84 SpO2: 100% HT: 167.64 cm WT: 49.4 kg BMI: 17.58 VITALS: I have reviewed the triage vital signs. GENERAL: Adult female, anxious, hyperventilating, wearing make-up. Friend at the bedside. NEURO: Alert and oriented. Moves all extremities. [...] turgor. No rash or lesions appreciated. PSYCH: Tearful, anxious Medical Decision Making 29-year-old female to the emergency department with chief complaint of anxiety, panic attack, chronic abdominal pain/rectal pain. Tachycardic, otherwise stable vitals. She is acutely anxious and hyperventilating in the room. Her abdomen is soft however she screams in pain before my hand even touches her abdomen. Patient is very well-known to this department with these complaints. Her care is fractionated and she is seen at several different facilities. Her definitive care is provided to [facility]. Upon review of her outpatient GI visit notes and previous ED visits she is chronically tachycardic, no change from baseline today. She actually appears improved from my previous encounters with her. She declines ketorolac and Bentyl for discomfort. Was OK with the offered Ativan. I do not believe that narcotic pain medications are indicated for her chronic pain. The patient is already on oxycodone 5mg at home, last fill on 12/31 for 7 days. She has numerous recent narcotic scripts from multiple providers across multiple institutions. She was offered Offirmev and declined. Based on my review of her ER visit history on [facility] and her OARRS report I do not believe it is appropriate to give her narcotic pain medications as it may be potentiating her chronic abdominal pain and increasing dependence. CBC and chemistry are unremarkable. X-ray without acute findings. I went into the room and discussed with the patient. She discussed her dissatisfaction with my pain medication regimen for her. She is requesting Dilaudid by name. I discussed with the patient that I do not believe it is appropriate to administer Dilaudid to her. She has not been taking the pain medication she has been prescribed at home. She is having a large volume of ED visits with increasing frequency where she is receiving/requesting Dilaudid. I discussed with her that this pattern of frequent Dilaudid administration in the emergency department is likely exacerbating her pain and making it more difficult to treat. The frequent administration of a single dose of Dilaudid in the emergency department is only a temporary fix for her problem and only makes treating her pain more difficult. Long-term opioid use may be associated with increased p (more content not included)... Normal [facility] Comment on above: Result Comment: Elec tronically Signed By: Elliot Macias DO\.br\Date and Time Signed: 01/04/25 01:41 EDT ED Patient Summaryon 01-04-2 025 ED Patient Summary ED Patient Summary [address] [address] Patient Discharge Instructions Person Information Name: ROLA AGUILAR Age: 29 Years Arrival Date: 01/03/2025 21:13:34 Discharge Diagnosis: Abdominal pain, chronic, generalized; Anxiety; Drug-seeking behavior; Other chronic pain [facility], . Provider Information Primary Provider: Elliot Macias DO Advanced Registered Nurse Maternity:None The exam and treatment you received in the Emergency Department were for an urgent problem and are not intended as complete care. It is important that you follow up with a doctor, nurse practitioner, or physician???s housekeeping assistant for ongoing care. If your symptoms become worse or you do not improve as expected and you are unable to reach your usual health care provider, you should return to the Emergency Department. We are available 24 hours a day. ROLA AGUILAR has been given the following list of patient education materials, prescriptions and follow-up instructions: Follow-up Instructions: With: Address: When: . [place] [address] [facility] (1) In 3 days 01/06/2025 Comments: Call the office of your primary care doctor to arrange for follow-up within the above-stated timeframe. Follow-up with your primary care doctor about this ED visit. You should review your labs, imaging, and diagnoses from this ED visit with your primary care physician. There are occasionally non-emergent findings that require additional follow-up after your ED visit. If you were prescribed medications you should discuss possible side-effects and drug interactions with your pharmacist. Call 911 or go to the nearest Emergency Department if you develop any new or worsening symptoms. Seek immediate medical attention if you develop: worsening abdominal pain, new or worsening nausea, new or worsening vomiting, new or worsening diarrhea, chest pain, shortness of breath, pain with urination, problems urinating, fever, chills, weakness, or any new or worsening symptoms. Follow-up with your surgeon at the [facility] In the event that this physician does not participate in your insurance network, please consult with your insurance company to find a nearby participating provider. Patient Education Materials: Chronic Pain, Adult A MESSAGE TO ALL PATIENTS REGARDING OPIOIDS PRESCRIPTION OPIOIDS: WHAT YOU NEED TO KNOW Prescription opioids can be used to help relieve deuoabye-ao-bnnknw pain and are often prescribed following a [...] take opioids in greater amounts or more of (more content not included)... Normal [facility] XR Abdomen 1 Viewon 01-05-20 25 XR Abdomen 1 View Exam Date/Time: 01/03/2025 23:10 EDT Reason for Exam: Abdominal pain Report IMPRESSION: NONOBSTRUCTIVE BOWEL GAS PATTERN. EXAMINATION: XR Abdomen 1 View HISTORY: Abdominal pain TECHNIQUE: Frontal view of the abdomen and pelvis COMPARISON: 09/09/2018 radiographs FINDINGS: No calcifications identified over the bilateral renal shadows or expected course of the ureters. Nonobstructive bowel gas pattern. Curvilinear opacity projects over the left aspect of the pubic ramus is may be external to the patient. No evidence of free air. No acute osseous abnormality. Ordering Provider: Elliot Macias FINAL REPORT Dictated: 01/04/2025 11:40 am Aldo Ken DO Signed (Electronic Signature): 01/04/2025 11:40 am Signed by: Aldo Ken DO Transcribed by: CLARICE Technologist: LUCINDA Normal [facility] BMPon 01-03-2025 Anion gap [Moles/Vol] 12 mmol/L Normal 6-16 [facility] Comment on above: Performed By: #### 2 [id number] #### [facility] [address] [place] [address] Calcium [Mass/Vol] 7.8 mg/dL Low 8.9-11.1 [facility] Comment on above: Performed By: #### 2 [id number] #### [facility] [address] [place] [address] Chloride [Moles/Vol] 103 mmol/L Normal 101-111 [facility] Comment on above: Performed By: #### 2 [id number] #### [facility] [address] [place] [address] CO2 [Moles/Vol] 29 mmol/L Normal 21-31 [facility] Comment on above: Performed By: #### 2 [id number] #### [facility] [address] [place] [address] Creatinine [Mass/Vol] 0.5 mg/dL Normal 0.5-1.3 [facility] Comment on above: Performed By: #### 2 [id number] #### [facility] [address] [place] [address] Glucose [Mass/Vol] 107 mg/dL Normal 55-199 [facility] Comment on above: Performed By: #### 2 [id number] #### [facility] [address] [place] [address] Potassium [Moles/Vol] 3.7 mmol/L Normal 3.5-5.3 [facility] Comment on above: Performed By: #### 2 [id number] #### [facility] [address] [place] [address] Sodium [Moles/Vol] 140 mmol/L Normal 135-145 [facility] Comment on above: Performed By: #### 2 [id number] #### [facility] [address] [place] [address] Urea nitrogen [Mass/Vol] 14 mg/dL Normal 5-21 [facility] Comment on above: Performed By: #### 2 [id number] #### [facility] [address] [place] [address] Urea nitrogen/Creatinine [Mass ratio] 28 No Units High 10-20 [facility] Comment on above: Performed By: #### 2 [id number] #### [facility] [address] [place] [address] CBC w/ Auto Diffon 5 Basophils/100 WBC (Bld) 0.1 % Normal 0.0-2.0 [facility] Comment on above: Performed By: #### 2 [id number] #### [facility] [address] [place] [address] Basophils/Leukocytes Auto (Bld) [Pure # fraction] 0.0 E9/L Normal 0.0-0.2 [facility] Comment on above: Performed By: #### 2 [id number] #### [facility] [address] [place] [address] Eosinophils (Bld) [#/Vol] 0.1 E9/L Normal 0.0-0.5 [facility] Comment on above: Performed By: #### 2 [id number] #### [facility] [address] [place] [address] Eosinophils/100 WBC (Bld) 1.5 % Normal 0.0-8.0 [facility] Comment on above: Performed By: #### 2 [id number] #### [facility] [address] [place] [address] Erythrocyte distribution width (RBC) [Ratio] 16.6 % High 10.9-14.2 [facility] Comment on above: Performed By: #### 2 [id number] #### [facility] [address] [place] [address] Hematocrit (Bld) [Volume fraction] 40.7 % Normal 34.0-46.0 [facility] Comment on above: Performed By: #### 2 [id number] #### [facility] [address] [place] [address] Hemoglobin (Bld) [Mass/Vol] 13.5 g/dL Normal 12.0-16.0 [facility] Comment on above: Performed By: #### 2 [id number] #### [facility] [address] [place] [address] Lymphocytes (Bld) [#/Vol] 0.5 E9/L Low 1.0-4.0 [facility] Comment on above: Performed By: #### 2 [id number] #### [facility] [address] [place] [address] Lymphocytes/100 WBC (Bld) 7.9 % Low 14.0-50.0 [facility] Comment on above: Performed By: #### 2 [id number] #### [facility] [address] [place] [address] MCH (RBC) [Entitic mass] 29.2 pg Normal 27.0-34.0 [facility] Comment on above: Performed By: #### 2 [id number] #### [facility] [address] [place] [address] MCHC (RBC) [Mass/Vol] 33.1 g/dL Normal 31.4-36.0 [facility] Comment on above: Performed By: #### 2 [id number] #### [facility] [address] [place] [address] MCV (RBC) [Entitic vol] 88.3 fL Normal 80.0-100.0 [facility] Comment on above: Performed By: #### 2 [id number] #### [facility] [address] [place] [address] Monocytes (Bld) [#/Vol] 0.4 E9/L Normal 0.2-1.0 [facility] Comment on above: Performed By: #### 2 [id number] #### [facility] [address] [place] [address] Neutrophils (Bld) [#/Vol] 5.5 E9/L Normal 2.0-7.5 [facility] Comment on above: Performed By: #### 2 [id number] #### [facility] [address] [place] [address] Neutrophils/100 WBC (Bld) 84.3 % High 36.0-75.0 [facility] Comment on above: Performed By: #### 2 [id number] #### [facility] [address] [place] [address] Platelet mean volume (Bld) [Entitic vol] 7.1 fL Normal 6.4-10.8 [facility] Comment on above: Performed By: #### 2 [id number] #### [facility] [address] [place] [address] Platelets (Bld) [#/Vol] 383.0 E9/L Normal 150.0-500.0 [facility] Comment on above: Performed By: #### 2 [id number] #### [facility] [address] [place] [address] RBC (Bld) [#/Vol] 4.6 E12/L Normal 4.3-5.9 [facility] Comment on above: Performed By: #### 2 [id number] #### [facility] [address] [place] [address] WBC corrected for nucl RBC Auto (Bld) [#/Vol] 6.5 E9/L Normal 4.0-11.0 [facility] Comment on above: Performed By: #### 2 [id number] #### [facility] [address] [place] [address] CHEMISTRYOrdered By: SYSTEM SYSTEM on 01-03-2025 Anion gap [Moles/Vol] 12 mmol/L Normal 6 - 16 mEq/L R emisol Chem Calcium [Mass/Vol] 7.8 mg/dL Low 8.9 - 11. 1 mg/dL Remisol Chem Chloride [Moles/Vol] 103 mmol/L Normal 101 - 1 11 mmol/L Remisol Chem CO2 [Moles/Vol] 29 mmol/L Normal 21 - 31 mmol/L Remis ol Chem Creatinine [Mass/Vol] 0.5 mg/dL Normal 0.5 - 1.3 mg/dL Remisol Chem eGFR 130 mL/min/1.73 m2 Normal >=59mL/mi n/1.7 3 m2 Remisol Chem Glucose [Mass/Vol] 107 mg/dL Normal 55 - 199 mg/dL Re misol Chem Potassium [Moles/Vol] 3.7 mmol/L Normal 3.5 - 5.3 mmol/L Remisol Chem Sodium [Moles/Vol] 140 mmol/L Normal 135 - 145 mmol/L Remisol Chem Urea nitrogen [Mass/Vol] 14 mg/dL Normal 5 - 21 mg/dL Remisol Chem Urea nitrogen/Creatinine [Mass ratio] 28 mg/mg High 10 - 20 Remisol Chem HEMATOLOGYOrdered By: SYSTEM SYSTEM on 01-03-2025 Basophils/100 WBC (Bld) 0.1 % Normal 0.0 - 2.0 % Remisol Heme Basophils/Leukocytes Auto (Bld) [Pure # fraction] 0.0 E9/L Normal 0.0 - 0.2 E9/L Remisol Heme Eosinophils (Bld) [#/Vol] 0.1 E9/L Normal 0.0 - 0.5 E9/L Remisol Heme Eosinophils/100 WBC (Bld) 1.5 % Normal 0.0 - 8.0 % Remisol Heme Erythrocyte distribution width (RBC) [Ratio] 16.6 % High 10.9 - 14.2 % Remisol Heme Hematocrit (Bld) [Volume fraction] 40.7 % Normal 34.0 - 46.0 % Remisol Heme Hemoglobin (Bld) [Mass/Vol] 13.5 g/dL Normal 12.0 - 16.0 gm/dL Remisol Heme Lymphocytes (Bld) [#/Vol] 0.5 E9/L Low 1.0 - 4.0 E9/L Remisol Heme Lymphocytes/100 WBC (Bld) 7.9 % Low 14.0 - 50.0 % Remisol Heme MCH (RBC) [Entitic mass] 29.2 pg Normal 27.0 - 34.0 pg Remisol Heme MCHC (RBC) [Mass/Vol] 33.1 g/dL Normal 31.4 - 36.0 gm/dL Remisol Heme MCV (RBC) [Entitic vol] 88.3 fL Normal 80.0 - 100.0 fL Remisol Heme Monocytes (Bld) [#/Vol] 0.4 E9/L Normal 0.2 - 1.0 E9/L Remisol Heme Monocytes/100 WBC (Bld) 6.2 % Normal 4.0 - 14.0 % Remisol Heme Neutrophils (Bld) [#/Vol] 5.5 E9/L Normal 2.0 - 7.5 E9/L Remisol Heme Neutrophils/100 WBC (Bld) 84.3 % High 36.0 - 75.0 % Remisol Heme Platelet mean volume (Bld) [Entitic vol] 7.1 fL Normal 6.4 - 10.8 fL Rem[facility] Heme Platelets (Bld) [#/Vol] 383.0 E9/L Normal 150.0 - 500.0 E9/L Remisol Heme RBC (Bld) [#/Vol] 4.6 E12/L Normal 4.3 - 5.9 E12/L Rem[facility]e WBC corrected for nucl RBC Auto (Bld) [#/Vol] 6.5 E9/L Normal 4.0 - 11.0 E9/L Remisol Heme eGFRon 01-03-2025 eGFR 130 mL/min/1.73 m2 Normal >=59 [facility] Comment on above: Performed By: #### 1 [id number] #### [facility] [address] [place] [id number] C Urineon 01-01-2025 Bacteria identified Cx Nom (U) Microbiology PROCEDURE: Urine Culture [R1] SOURCE: U CleanCatch BODY SITE: COLLECTED DATE/TIME: 12/30/2024 18:40 EDT RECEIVED DATE/TIME: 12/30/2024 19:09 EDT START DATE/TIME: 12/30/2024 19:09 EDT FREE TEXT SOURCE: Garcia GILES, Heriberto Cervantes MD, Heriberto FINAL REPORTS Final Report [] Verified Date/Time: 01/01/2025 08:28 EDT 1,000 cfu/ml Mixed skin contaminants Performing Locations R1: This test was performed at: [facility], [address] [place] [address], [id number] , [place], Normal [facility] Comment on above: Performed By: #### 2 [id number] #### [facility] [address] [place] [id number] [address] Abdomen/Pelvis w/o Contra ston 12-31-2024 CT Abdomen/Pelvis w/o Contrast Exam Date/Time: 12/30/2024 19:03 EDT Reason for Exam: Pain Report IMPRESSION: COLON DECREASED IN CALIBER WITH DIFFUSE CIRCUMFERENTIAL WALL STRANDING AND MINIMAL/MILD PERICOLONIC FAT STRANDING FROM CECUM TO RECTUM. FINDINGS COMPATIBLE WITH PATIENT CLINICAL HISTORY OF INFLAMMATORY BOWEL DISEASE. FINDINGS UNCHANGED. PERIANAL FISSURES CHANGE, WITH PERIANAL DRAINAGE CATHETER UNCHANGED IN POSITION. LOOP COLOSTOMY RIGHT LOWER ANTERIOR ABDOMINAL WALL. NO CT EVIDENCE OF INCARCERATION OR OBSTRUCTION. FINDINGS UNCHANGED. 1 CM RIGHT LOWER LOBE NODULE, PRESENT FROM 12/12/2024. RECOMMENDATIONS BELOW. HEPATIC STEATOSIS. CT OF THE ABDOMEN AND PELVIS WITHOUT INTRAVENOUS CONTRAST MEDIUM. HISTORY: PAIN. : PT PRESENTS WITH C/O ABDOMINAL PAIN. STATES SHE HAD PERIANAL SX DONE AT [facility] ON SATURDAY. PT STATES THEY FOUND 3 FISTULAS AND HAD DRAIN PLACED/ILEOSTOMY CROHN SALPINGECTOMY TECHNICAL FACTORS: CT imaging of the abdomen and pelvis were obtained and formatted as 5 mm contiguous axial images from the domes of the diaphragm to the symphysis pubis. Sagittal and coronal reconstructions were also obtained. Comparison: CT abdomen and pelvis, 12/23/2024, 12/16/2024, 12/12/2024, 11/22/2024, 11/14/2024, 10/02/2024. Findings: Lower chest: Cardiac size normal. No pericardial effusion. No coronary artery calcification. 1 cm pleural-based noncalcified right lower lobe nodule (series 2, image 7), unchanged from 12/12/2024 Liver: Normal in size, shape, and decreased in attenuation. Bile Ducts: Normal in caliber. Gallbladder: No stones or wall thickening. Pancreas: Normal without masses, cysts, ductal dilatation or calcification. Spleen: Normal in size without masses or calcifications. No splenules. Report Kidneys: Normal in size and enhancement. No hydronephrosis, masses, or stones. Adrenals: Normal. Small bowel: Normal in caliber. Circumferential wall thickening with mild adjacent fat stranding distal and terminal ileum unchanged. Appendix: Normal. Colon: Decreased in caliber, unchanged. Circumferential wall thickening of colon from cecum through rectum, with mild pericolonic fat stranding. With exception of cecum being fluid-filled on prior study, findings are unchanged. Loop colostomy right lower anterior abdominal wall. No bowel dilatation or associated fat stranding. Perianal drainage catheter unchanged patient with pericolonic fat stranding and fissure formation unchanged in region of rectum/anus. No perianal/perirectal fluid collections identified. Peritoneum: No ascites, free air, or fluid [...] No degenerative changes. No post operative changes. Fleischner Society 2017 Guidelines for Management of Incidentally Detected Pulmonary Nodules in Adults A: Solid Nodules* Single Low risk <6 mm No routine follow-up 6-[address] at 6-12 months, then consider CT at 18-24 months >[address] at 3 months, PET/CT, or tissue sampling Nodules <6 mm do not require routine follow-up, but certain patients at high risk with suspicious nodule morphology, upper lobe location, or both may warrant 12-month follow-up (recommendation 1A). Report High risk <[address] at 12 months 6-[address] at 6-12 months, then CT at 18-24 months >[address] at 3 months, PET/CT, or tissue sampling Nodules <6 mm do not require routine follow-up, but certain patients at high risk with suspicious nodule morphology, upper lobe location, or both may warrant 12-month follow-up (recommendation 1A). Multiple Low risk <6 mm No routine follow-up 6-[address] at 3-6 months, then consider CT at 18-24 months >[address] at 3-6 months, then consider CT at 18-24 months Use most suspicious nodule as guide to management. Follow-up intervals may vary according to size and risk (recommendation 2A). High risk <[address] at 12 months 6-[address] at 3-6 months, then at 18-24 months >[address] at 3-6 months, then at 18-24 months Use most suspicious nodule as guide to management. Follow-up intervals may vary according to size and risk (recommendation 2A). B: Subsolid Nodules* Single Ground glass <6 mm No routine follow-up >=[address] at 6-12 months to confirm persistence, then CT every 2 years until 5 years In certain suspicious nodules <6 mm, consider follow-up at 2 and 4 years. If solid component(s) o (more content not included)... Normal [facility] BMPon 12-30-2024 Anion gap [Moles/Vol] 9 mmol/L Normal -16 [facility] Comment on above: Performed By: #### 2 [id number] #### [facility] [address] [place] [address] Calcium [Mass/Vol] 7.4 mg/dL Low 8.9-11.1 [facility] Comment on above: Performed By: #### 2 [id number] #### [facility] [address] [place] [address] Chloride [Moles/Vol] 111 mmol/L Normal 101-111 [facility] Comment on above: Performed By: #### 2 [id number] #### [facility] [address] [place] [address] CO2 [Moles/Vol] 27 mmol/L Normal 21-31 [facility] Comment on above: Performed By: #### 2 [id number] #### [facility] [address] [place] [address] Creatinine [Mass/Vol] 0.5 mg/dL Normal 0.5-1.3 [facility] Comment on above: Performed By: #### 2 [id number] #### [facility] [address] [place] [address] Glucose [Mass/Vol] 102 mg/dL Normal 55-199 [facility] Comment on above: Performed By: #### 2 [id number] #### [facility] [address] [place] [address] Potassium [Moles/Vol] 3.3 mmol/L Low 3.5-5.3 [facility] Comment on above: Performed By: #### 2 [id number] #### [facility] [address] [place] [address] Sodium [Moles/Vol] 144 mmol/L Normal 135-145 [facility] Comment on above: Performed By: #### 2 [id number] #### [facility] [address] [place] [address] Urea nitrogen [Mass/Vol] 14 mg/dL Normal 5-21 [facility] Comment on above: Performed By: #### 2 [id number] #### [facility] [address] [place] [address] Urea nitrogen/Creatinine [Mass ratio] 28 No Units High 10-20 [facility] Comment on above: Performed By: #### 2 [id number] #### [facility] [address] [place] [address] CBC w/ Auto Diffon 5 Basophils/100 WBC (Bld) 0.3 % Normal 0.0-2.0 [facility] Comment on above: Performed By: #### 2 [id number] #### [facility] [address] [place] [address] Basophils/Leukocytes Auto (Bld) [Pure # fraction] 0.0 E9/L Normal 0.0-0.2 [facility] Comment on above: Performed By: #### 2 [id number] #### [facility] [address] [place] [address] Eosinophils (Bld) [#/Vol] 0.1 E9/L Normal 0.0-0.5 [facility] Comment on above: Performed By: #### 2 [id number] #### [facility] [address] [place] [address] Eosinophils/100 WBC (Bld) 0.7 % Normal 0.0-8.0 [facility] Comment on above: Performed By: #### 2 [id number] #### [facility] [address] [place] [address] Erythrocyte distribution width (RBC) [Ratio] 17.1 % High 10.9-14.2 [facility] Comment on above: Performed By: #### 2 [id number] #### [facility] [address] [place] [address] Hematocrit (Bld) [Volume fraction] 28.7 % Low 34.0-46.0 [facility] Comment on above: Performed By: #### 2 [id number] #### [facility] [address] [place] [address] Hemoglobin (Bld) [Mass/Vol] 9.5 g/dL Low 12.0-16.0 [facility] Comment on above: Performed By: #### 2 [id number] #### [facility] [address] [place] [address] Lymphocytes (Bld) [#/Vol] 0.8 E9/L Low 1.0-4.0 [facility] Comment on above: Performed By: #### 2 [id number] #### [facility] [address] [place] [address] Lymphocytes/100 WBC (Bld) 10.3 % Low 14.0-50.0 [facility] Comment on above: Performed By: #### 2 [id number] #### [facility] [address] [place] [address] MCH (RBC) [Entitic mass] 29.5 pg Normal 27.0-34.0 [facility] Comment on above: Performed By: #### 2 [id number] #### [facility] [address] [place] [address] MCHC (RBC) [Mass/Vol] 33.1 g/dL Normal 31.4-36.0 [facility] Comment on above: Performed By: #### 2 [id number] #### [facility] [address] [place] [address] MCV (RBC) [Entitic vol] 89.1 fL Normal 80.0-100.0 [facility] Comment on above: Performed By: #### 2 [id number] #### [facility] [address] [place] [address] Monocytes (Bld) [#/Vol] 0.6 E9/L Normal 0.2-1.0 [facility] Comment on above: Performed By: #### 2 [id number] #### [facility] [address] [place] [address] Neutrophils (Bld) [#/Vol] 6.5 E9/L Normal 2.0-7.5 [facility] Comment on above: Performed By: #### 2 [id number] #### [facility] [address] [place] [address] Neutrophils/100 WBC (Bld) 81.1 % High 36.0-75.0 [facility] Comment on above: Performed By: #### 2 [id number] #### [facility] [address] [place] [address] Platelet 529.0 E9/L High 150.0-500.0 [facility] Comment on above: Performed By: #### 2 [id number] #### [facility] [address] [place] [address] Platelet mean volume (Bld) [Entitic vol] 6.2 fL Low 6.4-10.8 [facility] Comment on above: Performed By: #### 2 [id number] #### [facility] [address] [place] [address] RBC (Bld) [#/Vol] 3.2 E12/L Low 4.3-5.9 [facility] Comment on above: Performed By: #### 2 [id number] #### [facility] [address] [place] [address] WBC corrected for nucl RBC Auto (Bld) [#/Vol] 8.0 E9/L Normal 4.0-11.0 [facility] Comment on above: Performed By: #### 2 [id number] #### [facility] [address] [place] [address] CHEMISTRYOrdered By: SYSTEM SYSTEM on 12-30-2024 Albumin [Mass/Vol] 2.4 g/dL Low 3.3 - [...] - 0.9 mg/dL [facility] Calcium [Mass/Vol] 7.4 mg/dL Low 8.9 - 11. 1 mg/dL [facility] Chloride [Moles/Vol] 111 mmol/L Normal 101 - 1 11 mmol/L [facility] CO2 [Moles/Vol] 27 mmol/L Normal 21 - 31 mmol/L [facility] Chem Creatinine [Mass/Vol] 0.5 mg/dL Normal 0.5 - 1.3 mg/dL [facility] eGFR 130 mL/min/1.73 m2 Normal >=59mL/mi n/1.7 3 m2 [facility] Globulin (S) [Mass/Vol] 3.6 g/dL Normal 1.4 - 4.0 gm/dL [facility] Glucose [Mass/Vol] 102 mg/dL Normal 55 - 199 mg/dL Re misol Chem Lipase [Catalytic activity/Vol] 46 U/L Normal 13 - 58 unit/L [facility] Potassium [Moles/Vol] 3.3 mmol/L Low 3.5 - 5.3 mmol/L [facility] Protein [Mass/Vol] 6.0 g/dL Normal 6.0 - 7.8 gm/dL [facility] Sodium [Moles/Vol] 144 mmol/L Normal 135 - 145 mmol/L [facility] Urea nitrogen [Mass/Vol] 14 mg/dL Normal 5 - 21 mg/dL [facility] Urea nitrogen/Creatinine [Mass ratio] 28 mg/mg High 10 - 20 [facility] ED Clinical Summaryon 2024 ED Clinical Summary ED Clinical Summary [address] [address] ED Clinical Summary Person Information Name: SHENYENIROLA [place] Age: 29 Years : 1995 Sex: Female Language: [place] African PCP: [facility], . Marital Status: Single Visit Id: Visit Reason: Vomiting; Blood in stool; Abdominal pain; ABDOMINAL PAIN, VOMITING BLOOD, DIZZY Speciality: Acuity: 2 Enc Type: Emergency Med Service: Emergency Arrival: 12/30/2024 16:59:24 Discharge: 12/30/2024 22:32:29 LOS: 000 05:33 Checkin: 12/30/2024 16:59:24 Checkout: 12/30/2024 22:32:29 Dispo Type: Home (Routine DC) EVENTS: Event Name Event Status Request Date/Time Start Date/Time Complete Date/Time Arrive Complete 12/30/2024 16:59:24 12/30/2024 16:59:24 12/30/2024 16:59:24 Document Home Meds Request 12/30/2024 16:59:24 Triage Complete 12/30/2024 16:59:24 12/30/2024 17:06:01 12/30/2024 17:06:01 Registration Complete 12/30/2024 17:02:01 12/30/2024 17:02:01 12/30/2024 17:02:01 Reg Complete Request 12/30/2024 17:02:01 Reg Bed Request Complete 12/30/2024 17:02:01 12/30/2024 17:02:01 12/30/2024 17:02:01 Pending Labs Complete 12/30/2024 17:06:40 12/30/2024 18:59:08 Lab Complete 12/30/2024 17:06:40 12/30/2024 17:36:51 Pending Labs Complete 12/30/2024 17:06:53 12/30/2024 18:53:43 Lab Complete 12/30/2024 17:06:53 12/30/2024 18:53:43 Urine Collect Complete 12/30/2024 17:06:53 12/30/2024 18:53:43 Pending Labs Complete 12/30/2024 17:12:30 12/30/2024 17:12:30 12/30/2024 17:36:51 Lab Complete 12/30/2024 17:12:30 12/30/2024 17:12:30 12/30/2024 17:36:51 Bed Assign Complete 12/30/2024 17:15:08 12/30/2024 17:15:08 12/30/2024 17:15:08 Dr Exam Complete 12/30/2024 17:15:08 12/30/2024 17:51:49 12/30/2024 17:51:49 RN Exam Complete 12/30/2024 17:15:08 12/30/2024 17:21:31 12/30/2024 17:21:31 Registration Complete 12/30/2024 17:51:49 12/30/2024 19:18:00 12/30/2024 19:18:00 Pending Labs Complete 12/30/2024 18:01:02 12/30/2024 18:01:02 12/30/2024 18:01:03 CT Complete 12/30/2024 18:01:16 12/30/2024 18:54:06 12/30/2024 19:03:17 Meds Admin Complete 12/30/2024 18:08:46 12/30/2024 18:39:12 Pending Labs Inlab 12/30/2024 18:59:08 12/30/2024 18:59:08 Lab Inlab 12/30/2024 18:59:08 12/30/2024 18:59:08 Meds Admin Complete 12/30/2024 20:24:34 12/30/2024 20:35:05 Meds Admin Complete 12/30/2024 21:25:24 12/30/2024 22:10:30 Meds Admin Complete 12/30/2024 22:00:34 12/30/2024 22:10:30 Discharge Complete 12/30/2024 22:01:50 12/30/2024 22:32:33 12/30/2024 22:32:33 Transfer Complete 12/30/2024 22:32:33 12/30/2024 22:32:33 12/30/2024 22:32:33 ADDRESS: [address] [place] [id number] PHYS DOC NOTES: MEDICAL INFORMATION: Prescriptions Given: New Medications [id number], [address] [place], [place] [id number], [phone] cephalexin (Keflex 500 mg Cap) 1 Capsules By Mouth every 12 hours for 5 Days. Refills: 0. hydrOXYzine (hydrOXYzine hydrochloride 25 mg Tab) 1 Tablets By Mouth 3 times a day as needed for anxiety. Refills: 0. Medications to Continue Taking That Have Changed [id number], [address] [place], [place] [id number], [phone] START: ondansetron (Zofran ODT 4 mg Tab-Dis) 1 Tablets By Mouth every 8 hours as needed Nausea/Vomiting. Refills: 0. START: oxycodone (oxyCODONE 5 mg Tab) 1 Tablets By Mouth every 6 hours as needed for pain. Refills: 0. Other Medications START: ondansetron (ondansetron 4 mg Dis Tab) 1 Tablets By Mouth every 6 hours. Refills: 0. START: ondansetron (Zofran ODT [...] oral tablet)) 1 Tablets every 12 hours. promethazine (promethazine 25 mg Tab) 1 Tablets By Mouth every 6 hours as needed as needed for nausea/vomiting. Refills: 0. promethazine (promethazine 25 mg Tab) 1 Tablets By Mouth every 4 hours. Refills: 0. PATIENT EDUCATION INFORMATION: Instructions: Ileostomy, Care After Follow up: With: Address: When: . [place] [address] [facility] (1) In 3 days 01/02/2025 Comments: Follow-up with your primary care provider tomorrow as scheduled along with your colorectal surgeon. Use hydroxyzine as needed for anxiety. Return to the ED with any new or worsening symptoms. DIAGNOSIS: Acute UTI (urinary tract infection); Crohn's disease; N&V (nausea and vomiting) Normal [facility] ED Patient Summaryon 025 ED Patient Summary ED Patient Summary [address] [address] Patient Discharge Instructions Person Information Name: ROLA AGUILAR Age: 29 Years Arrival Date: 12/30/2024 16:59:24 Discharge Diagnosis: Acute UTI (urinary tract infection); Crohn's disease; N&V (nausea and vomiting) [facility] Provider Information Primary Provider: Advanced Registered Nurse Maternity:Nellie Hinkle PA-C The exam and treatment you received in the Emergency Department were for an urgent problem and are not intended as complete care. It is important that you follow up with a doctor, nurse practitioner, or physician???s housekeeping assistant for ongoing care. If your symptoms become worse or you do not improve as expected and you are unable to reach your usual health care provider, you should return to the Emergency Department. We are available 24 hours a day. ROLA AGUILAR has been given the following list of patient education materials, prescriptions and follow-up instructions: Follow-up Instructions: With: Address: When: . [place] [address] Business (1) In 3 days 01/02/2025 Comments: Follow-up with your primary care provider tomorrow as scheduled along with your colorectal surgeon. Use hydroxyzine as needed for anxiety. Return to the ED with any new or worsening symptoms. In the event that this physician does not participate in your insurance network, please consult with your insurance company to find a nearby participating provider. Patient Education Materials: Ileostomy, Care After A MESSAGE TO ALL PATIENTS REGARDING OPIOIDS PRESCRIPTION OPIOIDS: WHAT YOU NEED TO KNOW Prescription opioids can be used to help relieve nhkrsibg-[id number] pain and are often prescribed following a [...] the toilet, following guidance from the Food (more content not included)... Normal [facility] Extra Blueon 12-30-2024 Tube Collected Plasma Yes Invalid Interpretation Code [facility] Comment on above: Performed By: #### 1 [id number] #### [facility] [address] [place] [address] HEMATOLOGYOrdered By: SYSTEM SYSTEM on 12-30-2024 Basophils/100 WBC (Bld) 0.3 % Normal 0.0 - 2.0 % [facility] Basophils/Leukocytes Auto (Bld) [Pure # fraction] 0.0 E9/L Normal 0.0 - 0.2 E9/L [facility] Eosinophils (Bld) [#/Vol] 0.1 E9/L Normal 0.0 - 0.5 E9/L [facility] Eosinophils/100 WBC (Bld) 0.7 % Normal 0.0 - 8.0 % [facility] Erythrocyte distribution width (RBC) [Ratio] 17.1 % High 10.9 - 14.2 % [facility] Hematocrit (Bld) [Volume fraction] 28.7 % Low 34.0 - 46.0 % [facility] Hemoglobin (Bld) [Mass/Vol] 9.5 g/dL Low 12.0 - 16.0 gm/dL [facility] Lymphocytes (Bld) [#/Vol] 0.8 E9/L Low 1.0 - 4.0 E9/L [facility] Lymphocytes/100 WBC (Bld) 10.3 % Low 14.0 - 50.0 % [facility] MCH (RBC) [Entitic mass] 29.5 pg Normal 27.0 - 34.0 pg [facility] MCHC (RBC) [Mass/Vol] 33.1 g/dL Normal 31.4 - 36.0 gm/dL [facility] MCV (RBC) [Entitic vol] 89.1 fL Normal 80.0 - 100.0 fL [facility] Monocytes (Bld) [#/Vol] 0.6 E9/L Normal 0.2 - 1.0 E9/L [facility] Monocytes/100 WBC (Bld) 7.6 % Normal 4.0 - 14.0 % [facility] Neutrophils (Bld) [#/Vol] 6.5 E9/L Normal 2.0 - 7.5 E9/L [facility] Neutrophils/100 WBC (Bld) 81.1 % High 36.0 - 75.0 % [facility] Platelet 529.0 E9/L High 150.0 - 500.0 E9/L [facility] Platelet mean volume (Bld) [Entitic vol] 6.2 fL Low 6.4 - 10.8 fL [facility] RBC (Bld) [#/Vol] 3.2 E12/L Low 4.3 - 5.9 E12/L [facility] WBC corrected for nucl RBC Auto (Bld) [#/Vol] 8.0 E9/L Normal 4.0 - 11.0 E9/L [facility] Hep Func Panelon 12-30-2024 Albumin [Mass/Vol] 2.4 g/dL Low 3.3-5.0 [facility] Comment on above: Performed By: #### 2 [id number] #### [facility] [address] [place] [address] Albumin/Globulin (S) [Mass conc ratio] 0.7 Low 1.1-2.2 [facility] Comment on above: Performed By: #### 2 [id number] #### [facility] [address] [place] [address] ALP [Catalytic activity/Vol] 143 Int._Unit/L High 21-98 [facility] Comment on above: Performed By: #### 2 [id number] #### [facility] [address] [place] [address] ALT No additional P-5'-P [Catalytic activity/Vol] 8 Int._Unit/L Normal 6-46 [facility] Comment on above: Performed By: #### 2 [id number] #### [facility] [address] [place] [address] AST [Catalytic activity/Vol] 9 Int._Unit/L Normal 5-43 [facility] Comment on above: Performed By: #### 2 [id number] #### [facility] [address] [place] [address] Bilirubin [Mass/Vol] 0.2 mg/dL Normal 0.0-1.1 [facility] Comment on above: Performed By: #### 2 [id number] #### [facility] [address] [place] [address] Bilirubin.direct [Mass/Vol] 0.1 mg/dL Normal 0.0-0.4 [facility] Comment on above: Performed By: #### 2 [id number] #### [facility] [address] [place] [address] Bilirubin.indirect [Mass or moles/Vol] 0.1 mg/dL Normal 0.1-0.9 [facility] Comment on above: Performed By: #### 2 [id number] #### [facility] [address] [place] [address] Globulin (S) [Mass/Vol] 3.6 g/dL Normal 1.4-4.0 [facility] Comment on above: Performed By: #### 2 [id number] #### [facility] [address] [place] [address] Protein [Mass/Vol] 6.0 g/dL Normal 6.0-7.8 [facility] Comment on above: Performed By: #### 2 [id number] #### [facility] [address] [place] [address] Lipase Levelon 12-30-2024 Lipase [Catalytic activity/Vol] 46 U/L Normal 13-58 [facility] Comment on above: Performed By: #### 2 [id number] #### [facility] [address] [place] [address] SEROLOGYOrdered By: Jennie Gardiner on 12-30-2024 HCG.beta subunit (U) [Moles/Vol] Negative Normal [facility] Man Sero U BetaHcg Qualon 12-30-2024 HCG.beta subunit (U) [Moles/Vol] Negative Normal [facility] Comment on above: Performed By: #### 2 [id number] #### [facility] [address] [place] [address] UA with Cult [employer] 12-31-19 25 Bacteria Auto Ql (U) Trace Normal Trace [facility] Comment on above: Performed By: #### 4 [id number] #### [facility] [address] [place] [address] Bilirubin Ql (U) Negative Normal Negative [facility] Comment on above: Performed By: #### 4 [id number] #### [facility] [address] [place] [address] Clarity (U) Ex.Turbid Abnormal Clear [facility] Comment on above: Performed By: #### 4 [id number] #### [facility] [address] [place] [address] Color (U) Yellow Normal Yellow [facility] Comment on above: Result Comment: Micr oscopic readings are only performed on those samples that meet specific criteria set forth by [facility]. Performed By: #### 4 [id number] #### [facility] [address] [place] [address] Epithelial cells.renal Computer assisted Ql (U) 0-2 Abnormal [facility] Comment on above: Performed By: #### 4 [id number] #### [facility] [address] [place] [address] Epithelial cells.squamous Auto (Urine sed) [#/Area] >10 Invalid Interpretation Code [facility] Comment on above: Performed By: #### 4 [id number] #### [facility] [address] [place] [address] Glucose Ql (U) Negative Normal Negative [facility] Comment on above: Performed By: #### 4 [id number] #### [facility] [address] [place] [address] Hemoglobin Auto test strip (U) [Mass/Vol] Negative Normal Negative [facility] Comment on above: Performed By: #### 4 [id number] #### [facility] [address] [place] [address] Ketones Auto test strip Ql (U) Trace Abnormal Negative [facility] Comment on above: Performed By: #### 4 [id number] #### [facility] [address] [place] [address] Leukocyte esterase Auto test strip Ql (U) 250 Cristela/uL Abnormal Negative [facility] Comment on above: Performed By: #### 4 [id number] #### [facility] [address] [place] [address] Mucus Auto Ql (U) 3+ CD:[id number] Abnormal Negative [facility] Comment on above: Performed By: #### 4 [id number] #### [facility] [address] [place] [address] Nitrite Auto test strip Ql (U) Negative Normal Negative [facility] Comment on above: Performed By: #### 4 [id number] #### [facility] [address] [place] [address] pH (U) 6.0 [pH] Invalid Interpretation Code 5.0-9.0 [facility] Comment on above: Performed By: #### 4 [id number] #### [facility] [address] [place] [address] Protein Ql (U) 1+ mg/dL Abnormal Negative [facility] Comment on above: Performed By: #### 4 [id number] #### [facility] [address] [place] [address] RBC Ql (U) 4-20 Abnormal 0-3 [facility] Comment on above: Performed By: #### 4 [id number] #### [facility] [address] [place] [id number] Specific gravity (U) [Rel density] 1.044 Invalid Interpretation Code 1.005-1.030 [facility] Comment on above: Performed By: #### 4 [id number] #### [facility] [address] [place] [id number] Urobilinogen (U) [Mass/Vol] 2 mg/dL Abnormal Negative [facility] Comment on above: Performed By: #### 4 [id number] #### [facility] [address] [place] [id number] WBC Auto (Urine sed) [#/Area] 31-75 Abnormal 0-5 [facility] Comment on above: Performed By: #### 4 [id number] #### [facility] [address] [place] [address] Yeast.budding Computer assisted Ql (U) 1+ CD:[id number] Abnormal [facility] Comment on above: Performed By: #### 4 [id number] #### [facility] [address] [place], [place] [address] Type of Urine collection method Clean Catch Normal [facility] Comment on above: Performed By: #### 4 [id number] #### [facility] [address] [place] [address] URINALYSISOrdered By: SYSTEM SYSTEM on 12-30-2024 Bacteria Auto Ql (U) Trace /HPF Normal Trace/HPF [facility] UA Auto SS Bilirubin Ql (U) Negative Normal Negativemg/dL [facility] UA Auto SS Clarity (U) Ex.Turbid *ABN* (12/30/24 6:40 PM) Invalid Interpretation Code Clear [facility] UA Auto SS Color (U) Yellow 1 (12/30/24 6:40 PM) Normal Yellow [facility] UA Auto SS Comment on above: Interpretive Data: M icroscopic readings are only performed on those samples that meet specific criteria set forth by [facility]. Epithelial cells.renal Computer assisted Ql (U) 0-2 graded/HPF Invalid Interpretation Code [facility] UA Auto SS Epithelial cells.squamous Auto (Urine sed) [#/Area] >10 graded/HPF Invalid Interpretation Code [facility] UA Auto SS Glucose Ql (U) Negative Normal Negativemg/dL [facility] UA Auto SS Hemoglobin Auto test strip (U) [Mass/Vol] Negative Normal Negativemg/dL [facility] UA Aut o SS Ketones Auto test strip Ql (U) Trace mg/dL Invalid Interpretation Code Negativemg/dL [facility] UA Auto SS Leukocyte esterase Auto test strip Ql (U) 250 Cristela/uL Cristela/uL Invalid Interpretation Code NegativeLeu/uL [facility] UA Auto SS Mucus Auto Ql (U) 3+ graded/LPF Invalid Interpretation Code Negativegraded /LPF [facility] UA Auto SS Nitrite Auto test strip Ql (U) Negative Normal Negativemg/dL [facility] UA Auto SS pH (U) 6.0 *NA* (12/30/24 6:40 PM) Invalid Interpretation Code 5.0 - 9.0 [facility] UA Auto SS Protein Ql (U) 1+ mg/dL Invalid Interpretation Code Negativemg/dL [facility] UA Auto SS RBC Ql (U) 4-20 graded/HPF Invalid Interpretation Code 0-3graded/HPF [facility] UA Auto SS Specific gravity (U) [Rel density] 1.044 *NA* (12/30/24 6:40 PM) Invalid Interpretation Code 1.005 - 1.030 [facility] UA Auto SS Urobilinogen (U) [Mass/Vol] 2 mg/dL Invalid Interpretation Code Negativemg/dL [facility] UA Auto SS WBC Auto (Urine sed) [#/Area] 31-75 graded/HPF Invalid Interpretation Code 0-5graded/HPF [facility] UA Auto SS Yeast.budding Computer assisted Ql (U) 1+ graded/HPF Invalid Interpretation Code [facility] UA Auto SS URINALYSISOrdered By: Amparo Rios on 12-30-2024 UA Spec Desc Clean Catch (12/30/24 6:40 PM) Normal [facility] UA Auto SS eGFRon 12-30-2024 eGFR 130 mL/min/1.73 m2 Normal >=59 [facility] Comment on above: Performed By: #### 1 [id number] #### [facility] [address] [place] [address] C Urineon 12-25-2024 Bacteria identified Cx Nom (U) Microbiology PROCEDURE: Urine Culture [R1] SOURCE: U CleanCatch BODY SITE: COLLECTED DATE/TIME: 12/23/2024 13:55 EDT RECEIVED DATE/TIME: 12/23/2024 14:49 EDT START DATE/TIME: 12/23/2024 14:49 EDT FREE TEXT SOURCE: Gary LEDESMA, Gadiel Signer. Gary LEDESMA, Gadiel Singer. FINAL REPORTS Final Report [] Verified Date/Time: 12/25/2024 09:20 EDT No growth at 2 days. Performing Locations R1: This test was performed at: [facility], [address] [place] [address], [address] , , Normal [facility] Comment on above: Performed By: #### 2 [id number] #### [facility] [address] [place], [place] [address] [facility] 12-25-2024 AMAURY Telephone (MEAGAN) ROLA AGUILAR ([id number]) 1995 F CHT Date Time Provider Department 12/25/24 MICHAEL CHEEMA During your visit today, we recorded the following information about you: Michael Cheema APRN.CNP 12/25/2024 12:32 PM Signed Hi Mera, Could you take a look at this patient. Her surgery is 01/08 do you have any recommendations for her? Thank you! Michael Cheema APRN.CNP Allergies As of Date: 12/25/2024 Noted Allergy Reaction HYDROMORPHONE 05/26/2023 9 - Itching Date Reviewed: 12/24/2024 Reviewed by: Michael Cheema APRN.CNP - Fully Assessed Reason for Visit: Results [95] Primary Visit Diagnosis:Anemia, unspecified type [D64.9] Order(s):BLOOD MANAGEMENT REFERRAL [[id number]] Order #: [id number]: 1 Prescriptions as of 12/28/2024 - oxyCODONE IR (ROXICODONE) 5 mg immediate release tablet Take 1 tablet by mouth every 8 hours as needed for pain for up to 7 days. Patient should start on December 26, 2024. - acetaminophen (TYLENOL) 500 mg tablet Take 2 tablets by mouth every 6 hours. - busPIRone (BUSPAR) 10 mg tablet Take 10 mg by mouth three times a day. - levETIRAcetam (KEPPRA) 500 mg tablet Take 500 mg by mouth two times a day. - Magnesium 200 mg tab Take 200 mg by mouth once daily. - dicyclomine HCl (BENTYL ORAL) - KEPPRA [...] 11pm the evening prior to surgery. - vedolizumab (ENTYVIO PEN) 108 mg/0.68 mL pen Inject 108mg (1 pen) subcutaneously every other week. - vedolizumab (ENTYVIO PEN) 108 mg/0.68 mL pen Inject 108 mg (1 pen) subcutaneously every other week. Problem List As Of Date 12/25/2024 Noted Resolved Crohn's disease (regional enteritis) (HCC) [K50*08/22/2018 02/04/2023 Abdominal pain [R10.9] 09/10/2018 01/21/2023 Hypomagnesemia [E83.42] 09/11/2018 09/12/2018 Hyponatremia [E87.1] 09/11/2018 09/12/2018 Perineal abscess [L02.215] 09/09/2018 Malnutrition of mild degree (HCC) [E44.1] 09/11/2018 Hypokalemia [E87.6] 09/12/2018 Crohn's colitis (HCC) [K50.10] 09/09/2018 02/04/2023 Obesity, Class II, BMI 35-39.9 [E66.812] 08/26/2020 12/24/2024 History of creation of ostomy (HCC) [Z93.9] 01/22/2021 Crohn's disease of colon with complication (HCC*01/17/2023 History of endoscopy [Z98.890] 02/04/2023 07/04/2023 Imaging of gastrointestinal tract abnormal [R93*02/04/2023 13 weeks gestation of [Z3A.13] 04/30/2023 07/04/2023 Maternal Crohn's disease affecting in*04/30/2023 10/24/2023 Obesity, Class I, BMI 30-34.9 [E66.811] 05/01/2023 12/24/2024 Anxiety and depression [F41.9, F32.A] 07/04/2023 Abdominal [...] [Z93.2] 01/18/2024 Generalized abdominal pain [R10.84] 01/20/2024 Crohn's colitis, unspecified complication (HCC)*12/17/2024 Generalized seizures (HCC) [R56.9] 11/22/2024 Anemia [D64.9] 12/24/2024 Encounter Status:Closed by MICHAEL CHEEMA on 12/28/24 Normal [facility] CBC W Auto Differential pane l (Bld)on 12-24-2024 Basophils (Bld) [#/Vol] 0.04 10*3/uL Normal <0.11 [facility] Comment on above: Order Comment: Speci men Type: BLOOD SPECIMENOrdering Facility: [facility] Address: [address] [place] [address] Performed By: #### 5 7021-8 ####[facility] LABCLIA [id number] [place] [address] [place] Basophils/100 WBC (Bld) 0.5 % Normal [facility] Comment on above: Order Comment: Speci men Type: BLOOD SPECIMENOrdering Facility: [facility] Address: [address] [place] [address] Performed By: #### 5 7021-8 ####[facility] LABCLIA [id number] [place] [address] [place] Differential cell count method Nom (Bld) Auto Normal [facility] Comment on above: Order Comment: Speci men Type: BLOOD SPECIMENOrdering Facility: [facility] Address: [address] [place] [address] Performed By: #### 5 7021-8 ####[facility] LABCLIA [id number] [place] [address] [place] Eosinophils (Bld) [#/Vol] 0.14 10*3/uL Normal <0.46 [facility] Comment on above: Order Comment: Speci men Type: BLOOD SPECIMENOrdering Facility: [facility] Address: [address] [place] [address] Performed By: #### 5 7021-8 ####[facility] LABCLIA [id number] [place] [address] [place] Eosinophils/100 WBC (Bld) 1.7 % Normal [facility] Comment on above: Order Comment: Speci men Type: BLOOD SPECIMENOrdering Facility: [facility] Address: [address] [place] [address] Performed By: #### 5 7021-8 ####[facility] LABCLIA [id number] [address], [place] [address] [place] Erythrocyte distribution width (RBC) [Ratio] 16.3 % High 11.5-15.0 [facility] Comment on above: Order Comment: Speci men Type: BLOOD SPECIMENOrdering Facility: [facility] Address: [address] [place] [address] Performed By: #### 5 7021-8 ####[facility] LABCLIA [id number] [place] [address] [place] Hematocrit (Bld) [Volume fraction] 31.8 % Low 36.0-46.0 [facility] Comment on above: Order Comment: Speci men Type: BLOOD SPECIMENOrdering Facility: [facility] Address: [address] [place] [address] Performed By: #### 5 7021-8 ####[facility] LABCLIA [id number] [address] [place] [address] [place] Hemoglobin (Bld) [Mass/Vol] 9.3 g/dL Low 11.5-15.5 [facility] Comment on above: Order Comment: Speci men Type: BLOOD SPECIMENOrdering Facility: [facility] Address: [address] [place] [address] Performed By: #### 5 7021-8 ####[facility] LABCLIA [id number] [place] [address] [place] Immature granulocytes (Bld) [#/Vol] 0.07 10*3/uL Normal <0.10 [facility] Comment on above: Order Comment: Speci men Type: BLOOD SPECIMENOrdering Facility: [facility] Address: [address] [place] [address] Performed By: #### 5 7021-8 ####[facility] LABCLIA [id number] [place] [address] [place] Immature granulocytes/100 WBC (Bld) 0.9 % Normal [facility] Comment on above: Order Comment: Speci men Type: BLOOD SPECIMENOrdering Facility: [facility] Address: [address] [place] [address] Performed By: #### 5 7021-8 ####[facility] LABCLIA [id number] [place] [address] [place] Lymphocytes (Bld) [#/Vol] 1.13 10*3/uL Normal 1.00-4.00 [facility] Comment on above: Order Comment: Speci men Type: BLOOD SPECIMENOrdering Facility: [facility] Address: [address] [place] [address] Performed By: #### 5 7021-8 ####[facility] LABCLIA [id number] [place] [address] [place] Lymphocytes/100 WBC (Bld) 13.7 % Normal [facility] Comment on above: Order Comment: Speci men Type: BLOOD SPECIMENOrdering Facility: [facility] Address: [address] [place] [address] Performed By: #### 5 7021-8 ####[facility] LABIA [id number] [place] [address] [place] MCH (RBC) [Entitic mass] 28.9 pg Normal 26.0-34.0 [facility] Comment on above: Order Comment: Speci men Type: BLOOD SPECIMENOrdering Facility: [facility] Address: [address] [place] [address] Performed By: #### 5 7021-8 ####[facility] LABIA [id number] [place] [address] [place] MCHC (RBC) [Mass/Vol] 29.2 g/dL Low 30.5-36.0 [facility] Comment on above: Order Comment: Speci men Type: BLOOD SPECIMENOrdering Facility: [facility] Address: [address] [place] [address] Performed By: #### 5 7021-8 ####[facility] [id number] [place] [address] [place] MCV (RBC) [Entitic vol] 98.8 fL Normal 80.0-100.0 [facility] Comment on above: Order Comment: Speci men Type: BLOOD SPECIMENOrdering Facility: [facility] Address: [address] [place] [address] Performed By: #### 5 7021-8 ####[facility] LABIA [id number] [place] [address] [place] Monocytes (Bld) [#/Vol] 0.80 10*3/uL Normal <0.87 [facility] Comment on above: Order Comment: Speci men Type: BLOOD SPECIMENOrdering Facility: [facility] Address: [address] [place] [address] Performed By: #### 5 7021-8 ####[facility] LABIA [id number] [address] [place] [address] [place] Monocytes/100 WBC (Bld) 9.7 % Normal [facility] Comment on above: Order Comment: Speci men Type: BLOOD SPECIMENOrdering Facility: [facility] Address: [address] [place] [address] Performed By: #### 5 7021-8 ####[facility] LABCLIA [id number] [place] [address] [place] Neutrophils (Bld) [#/Vol] 6.04 10*3/uL Normal 1.45-7.50 [facility] Comment on above: Order Comment: Speci men Type: BLOOD SPECIMENOrdering Facility: [facility] Address: [address] [place] [address] Performed By: #### 5 7021-8 ####[facility] LABCLIA [id number] [place] [address] [place] Neutrophils/100 WBC (Bld) 73.5 % Normal [facility] Comment on above: Order Comment: Speci men Type: BLOOD SPECIMENOrdering Facility: [facility] Address: [address] [place] [address] Performed By: #### 5 7021-8 ####[facility] LABCLIA [id number] [place] [address] [place] Nucleated RBC (Bld) [#/Vol] 10*3/uL Normal <0.01 [facility] Comment on above: Order Comment: Speci men Type: BLOOD SPECIMENOrdering Facility: [facility] Address: [address] [place] [address] Performed By: #### 5 7021-8 ####[facility] LABCLIA [id number] [place] [address] [place] Nucleated RBC/100 WBC (Bld) [Ratio] 0.0 /100 WBC Normal [facility] Comment on above: Order Comment: Speci men Type: BLOOD SPECIMENOrdering Facility: [facility] Address: [address] [place] [address] Performed By: #### 5 7021-8 ####[facility] LABIA [id number] [place] [address] [place] Platelet mean volume (Bld) [Entitic vol] 9.0 fL Normal 9.0-12.7 [facility] Comment on above: Order Comment: Speci men Type: BLOOD SPECIMENOrdering Facility: [facility] Address: [address] [place] [address] Performed By: #### 5 7021-8 ####[facility] LABIA [id number] [place] [address] [place] Platelets (Bld) [#/Vol] 667 10*3/uL High 150-400 [facility] Comment on above: Order Comment: Speci men Type: BLOOD SPECIMENOrdering Facility: [facility] Address: [address] [place] [address] Performed By: #### 5 7021-8 ####[facility] LABIA [id number] [place] [address] [place] RBC (Bld) [#/Vol] 3.22 10*6/uL Low 3.90-5.20 [facility] Comment on above: Order Comment: Speci men Type: BLOOD SPECIMENOrdering Facility: [facility] Address: [address] [place] [address] Performed By: #### 5 7021-8 ####[facility] LABIA [id number] [place] [address] [place] WBC (Bld) [#/Vol] 8.22 10*3/uL Normal 3.70-11.00 [facility] Comment on above: Order Comment: Speci men Type: BLOOD SPECIMENOrdering Facility: [facility] Address: [address] [place] [address] Performed By: #### 5 7021-8 ####[facility] LABCLIA [id number] [address] [address] [place] Comprehensive metabolic 2000 panelon 12-24-2024 Albumin [Mass/Vol] 2.4 g/dL Low 3.9-4.9 [facility] Comment on above: Order Comment: Speci men Type: BLOOD SPECIMENOrdering Facility: [facility] Address: [address] [place] [address] Performed By: #### 5 0190-8, 62848-0, 2275-4 ####[facility] LABCLIA [id number] [place] [address] [place] ALP [Catalytic activity/Vol] 172 U/L High 34-123 [facility] Comment on above: Order Comment: Speci men Type: BLOOD SPECIMENOrdering Facility: [facility] Address: [address] [place] [address] Performed By: #### 5 0190-8, 48641-7, 4 ####[facility] LABCLIA [id number] [place] [address] [place] ALT [Catalytic activity/Vol] 12 U/L Normal 7-38 [facility] Comment on above: Order Comment: Speci men Type: BLOOD SPECIMENOrdering Facility: [facility] Address: [address] [place] [address] Performed By: #### 5 0190-8, 73861-9, 4 ####[facility] LABCLIA [id number] [address] [address] [place] Anion gap [Moles/Vol] 14 mmol/L Normal 8-15 [facility] Comment on above: Order Comment: Speci men Type: BLOOD SPECIMENOrdering Facility: [facility] Address: [address] [place], [place] [address] Performed By: #### 5 0190-8, 61467-2, 2275-4 ####[facility] LABCLIA [id number] [address] [address] [place] AST [Catalytic activity/Vol] 21 U/L Normal 13-35 [facility] Comment on above: Order Comment: Speci men Type: BLOOD SPECIMENOrdering Facility: [facility] Address: [address] [place] [address] Performed By: #### 5 0190-8, 26564-4, 2275-4 ####[facility] LABCLIA [id number] [place] [address] [place] Bilirubin [Mass/Vol] mg/dL Low 0.2-1.3 [facility] Comment on above: Order Comment: Speci men Type: BLOOD SPECIMENOrdering Facility: [facility] Address: [address] [place] [address] Performed By: #### 5 0190-8, 71618-2, 2275-12 ####[facility] LABCLIA [id number] [place] [address] [place] Calcium [Mass/Vol] 8.5 mg/dL Normal 8.5-10.2 [facility] Comment on above: Order Comment: Speci men Type: BLOOD SPECIMENOrdering Facility: [facility] Address: [address] [place] [address] Performed By: #### 5 0190-8, 26711-7, 2275-12 ####[facility] LABCLIA [id number] [place] [address] [place] Chloride [Moles/Vol] 107 mmol/L Normal 98-107 [facility] Comment on above: Order Comment: Speci men Type: BLOOD SPECIMENOrdering Facility: [facility] Address: [address] [place] [address] Performed By: #### 5 0190-8, 42205-7, 2275-4 ####[facility] LABCLIA [id number] [address] [address] [place] CO2 [Moles/Vol] 22 mmol/L Normal 22-30 [facility] Comment on above: Order Comment: Speci men Type: BLOOD SPECIMENOrdering Facility: [facility] Address: [address] [place] [address] Performed By: #### 5 0190-8, 98199-1, 6-4 ####[facility] LABCLIA [id number] [place] [address] [place] Creatinine [Mass/Vol] 0.63 mg/dL Normal 0.58-0.96 [facility] Comment on above: Order Comment: Speci men Type: BLOOD SPECIMENOrdering Facility: [facility] Address: [address] [place] [address] Performed By: #### 5 0190-8, 56544-2, 2275-4 ####[facility] LABIA [id number] [place] [address] [place] Creatinine and Glomerular filtration rate.predicted panel (S/P/Bld) 123 mL/min/1.73m??? Normal >=60 [facility] Comment on above: Order Comment: Speci men Type: BLOOD SPECIMENOrdering Facility: [facility] Address: [address] [place] [address] Result Comment: Alysha mated Glomerular Filtration Rate [...] actual GFR. Performed By: #### 5 0190-8, 59067-0, 2275-4 ####[facility] LABCLIA [id number] [place] [address] [place] Glucose [Mass/Vol] 56 mg/dL Low 74-99 [facility] Comment on above: Order Comment: Speci men Type: BLOOD SPECIMENOrdering Facility: [facility] Address: [address] [place], [place] [address] Result Comment: The [place] Diabetes Association (ADA) provides guidance for cutoff [...] Standards of Medical Care in Diabetes 2016, [place] Diabetes Association. Diabetes Care. 2016.39(Suppl 1). Performed By: #### 5 0190-8, 75807-8, 2275-12 ####[facility] LABCLIA [id number] [place] [address] [place] Potassium [Moles/Vol] 3.7 mmol/L Normal 3.7-5.1 [facility] Comment on above: Order Comment: Speci men Type: BLOOD SPECIMENOrdering Facility: [facility] Address: [address] [place] [address] Performed By: #### 5 0190-8, 72227-3, 2275-12 ####[facility] LABCLIA [id number] [place] [address] [place] Protein [Mass/Vol] 6.1 g/dL Low 6.3-8.0 [facility] Comment on above: Order Comment: Speci men Type: BLOOD SPECIMENOrdering Facility: [facility] Address: [address] [place], [place] [address] Performed By: #### 5 0190-8, 98714-0, 2275-12 ####[facility] LABCLIA [id number] [facility] [address] [address] [place] Sodium [Moles/Vol] 143 mmol/L Normal 136-144 [facility] Comment on above: Order Comment: Speci men Type: BLOOD SPECIMENOrdering Facility: [facility] Address: [address] [place] [address] Performed By: #### 5 0190-8, 96679-4, 6-4 ####[facility] LABCLIA [id number] [place] [address] [place] Urea nitrogen [Mass/Vol] 9 mg/dL Normal 7-21 [facility] Comment on above: Order Comment: Speci men Type: BLOOD SPECIMENOrdering Facility: [facility] Address: [address] [place] [address] Performed By: #### 5 0190-8, 34244-5, 4 ####[facility] LABCLIA [id number] [place] [address] [place] ECG COMPLETEon 12-24-2024 ECG COMPLETE Ventricular Rate : 8 6 BPM Atrial Rate : 86 BPM P-R Interval : 130 ms QRS Duration : 74 ms Q-T Interval : 358 ms QTC Calculation(Bazett) : 428 ms Calculated P [place] : 53 degrees Calculated R [place] : 62 degrees Calculated T [place] : 22 degrees NORMAL SINUS RHYTHM NONSPECIFIC ST ABNORMALITY ABNORMAL ECG Reconfirmed by MD DURAN ANISH ([id number]) on 12/25/2024 1:05:18 PM NAME : ROLA AGUILAR PID : [id number] : 1995 Gender : Female Race : ORD : [id number] Procedure Date : Dec 24 2024 07:04:06 Edit Date : Dec 25 2024 13:05:21 Diagnosis: NORMAL SINUS RHYTHM NONSPECIFIC ST ABNORMALITY ABNORMAL ECG Reconfirmed by MD DURAN ANISH ([id number]) on 12/25/2024 1:05:18 PM Test Reason : Z01.818 Pre-op evaluation Location : 145 : [facility] Overread By : MD DURAN ANISH Edited By : MD DURAN ANISH Referred By : SHAQ THAKKAR Acquired by : VS, Normal [facility] Ferritin SerPl-mCncon 2024 Ferritin [Mass/Vol] 455.0 ng/mL High 14.7-205.1 [facility] Comment on above: Order Comment: Speci men Type: BLOOD SPECIMENOrdering Facility: [facility] Address: [address] [facility] [place] [address] Performed By: #### 5 0190-8, 69675-9, 2276-4 ####[facility] LABCLIA [id number] [facility]STVal[facility] [address] [place] HISTORY PHYSICALon HISTORY PHYSICAL HNO ID: [id number] Author: MICHAEL CHEEMA APRN.[employer] Service: ? Author Type: Nurse Practitioner Type: H&P Filed: 12/28/2024 09:47 Note Text: HISTORY AND PHYSICAL EXAMINATION SERVICE [...] large neck Non-male patient STOP-Bang Score: 0 [id number] Score: Age: <65 Sex: female CHF history: No Hypertension history: No Stroke/TIA/thromboemb olism history: No Vascular disease history: No Diabetes history: No [id number] Score: 1 ARISCAT Score: Age: <=50 Preoperative [...] for surgery pending recommendations from blood management 12/28/2024 Update: Patient is not a candidate for IV iron. Type and screen completed. Patient optimized CONSULTS: Patient does not require consults for [...] Tell your doctor if you take supplements cont (more content not included)... Normal [facility] Iron and Iron binding capaci ty panelon 12-24-2024 Iron [Mass/Vol] 26 ug/dL Low 41-186 [facility] Comment on above: Order Comment: Roya del rio Type: BLOOD SPECIMENOrdering Facility: [facility] Address: [address] [place] [address] Performed By: #### 5 0190-8, 69287-8, 4 ####[facility] LABCLIA [id number] [place] [address] [place] Iron binding capacity [Mass/Vol] 128 ug/dL Low 232-386 [facility] Comment on above: Order Comment: Roya del rio Type: BLOOD SPECIMENOrdering Facility: [facility] Address: [address] [place] [address] Performed By: #### 5 0190-8, 81749-8, 2275-4 ####[facility] LABCLIA [id number] [place] [id number] [place] Iron/TIBC [Molar ratio] 20.3 % Normal 15.0-57.0 [facility] Comment on above: Order Comment: Speci men Type: BLOOD SPECIMENOrdering Facility: [facility] Address: [address] [place] [address] Performed By: #### 5 0190-8, 51136-3, 2276-4 ####[facility] LABCLIA [id number] [address] TYPE + SCREENon 12-24-2024 ABO B Normal [facility] Comment on above: Order Comment: Speci men Type: BLOOD SPECIMENOrdering Facility: [facility] Address: [address] [place] [address] Performed By: #### T SCR ####[facility] BLOOD BANKCLIA [id number] [address] Rh Nom (Bld) Positive Normal [facility] Comment on above: Order Comment: Speci men Type: BLOOD SPECIMENOrdering Facility: [facility] Address: [address] [place] [address] Performed By: #### T SCR ####[facility] BLOOD BANKCLIA [id number] [address] TYPE AND SCREEN EXPIRATION 12/27/2024 23:59 Normal [facility] Comment on above: Order Comment: Speci men Type: BLOOD SPECIMENOrdering Facility: [facility] Address: [address] [place] [address] Performed By: #### T SCR ####[facility] BLOOD BANKCLIA [id number] [address] [place] Ambulatory Visit Summaryon 0 12-23-2024 Ambulatory Visit Summary Ambulatory Visit Summary ROLA AGUILAR :1995 Visit Date:12/23/2024 Ambulatory Visit Instructions Your Diagnosis Crohn's disease S/P ileostomy Your Care Team Attending Physician - Ja Bhardwaj MD Primary Care Physician - NONE, XXXX This [...] Someone Will Contact You Regarding These Appointments [facility] External Ambulatory Referral, Gastroenterology, 12/23/24 10:48:00 EDT, [...] for choosing us for your care. Normal [facility] BMPon 12-23-2024 Anion gap [Moles/Vol] 11 mmol/L Normal -16 [facility] Comment on above: Performed By: #### 2 [id number] #### [facility] [address] [place] [address] Calcium [Mass/Vol] 7.7 mg/dL Low 8.9-11.1 [facility] Comment on above: Performed By: #### 2 092825 #### [facility] [address] [place] [address] Chloride [Moles/Vol] 109 mmol/L Normal 101-111 [facility] Comment on above: Performed By: #### 2 [id number] #### [facility] [address] [place] [address] CO2 [Moles/Vol] 27 mmol/L Normal 21-31 [facility] Comment on above: Performed By: #### 2 870373 #### [facility] [address] [place] [address] Creatinine [Mass/Vol] 0.5 mg/dL Normal 0.5-1.3 [facility] Comment on above: Performed By: #### 2 274611 #### [facility] [address] [place] [address] Glucose [Mass/Vol] 78 mg/dL Normal 55-199 [facility] Comment on above: Performed By: #### 2 980949 #### [facility] [address] [place] [address] Potassium [Moles/Vol] 3.6 mmol/L Normal 3.5-5.3 [facility] Comment on above: Performed By: #### 2 585202 #### [facility] [address] [place] [address] Sodium [Moles/Vol] 143 mmol/L Normal 135-145 [facility] Comment on above: Performed By: #### 2 839935 #### [facility] [address] [place] [address] Urea nitrogen [Mass/Vol] 12 mg/dL Normal 5-21 [facility] Comment on above: Performed By: #### 2 462035 #### [facility] [address] [place] [address] Urea nitrogen/Creatinine [Mass ratio] 24 No Units High 10-20 [facility] Comment on above: Performed By: #### 2 [id number] #### [facility] [address] [place] [address] CBC w/ Auto Diffon 5 Basophils/100 WBC (Bld) 0.3 % Normal 0.0-2.0 [facility] Comment on above: Performed By: #### 2 296929 #### [facility] [address] [place] [address] Basophils/Leukocytes Auto (Bld) [Pure # fraction] 0.0 E9/L Normal 0.0-0.2 [facility] Comment on above: Performed By: #### 2 616564 #### [facility] [address] [place] [address] Eosinophils (Bld) [#/Vol] 0.0 E9/L Normal 0.0-0.5 [facility] Comment on above: Performed By: #### 2 918196 #### [facility] [address] [place] [address] Eosinophils/100 WBC (Bld) 0.5 % Normal 0.0-8.0 [facility] Comment on above: Performed By: #### 2 380995 #### [facility] [address] [place] [address] Erythrocyte distribution width (RBC) [Ratio] 17.0 % High 10.9-14.2 [facility] Comment on above: Performed By: #### 2 655272 #### [facility] [address] [place] [address] Hematocrit (Bld) [Volume fraction] 30.3 % Low 34.0-46.0 [facility] Comment on above: Performed By: #### 2 691068 #### [facility] [address] [place] [address] Hemoglobin (Bld) [Mass/Vol] 9.9 g/dL Low 12.0-16.0 [facility] Comment on above: Performed By: #### 2 009456 #### [facility] [address] [place] [address] Lymphocytes (Bld) [#/Vol] 1.1 E9/L Normal 1.0-4.0 [facility] Comment on above: Performed By: #### 2 373795 #### [facility] [address] [place] [address] Lymphocytes/100 WBC (Bld) 10.6 % Low 14.0-50.0 [facility] Comment on above: Performed By: #### 2 724802 #### [facility] [address] [place] [address] MCH (RBC) [Entitic mass] 29.7 pg Normal 27.0-34.0 [facility] Comment on above: Performed By: #### 2 717713 #### [facility] [address] [place] [address] MCHC (RBC) [Mass/Vol] 32.7 g/dL Normal 31.4-36.0 [facility] Comment on above: Performed By: #### 2 417783 #### [facility] [address] [place] [address] MCV (RBC) [Entitic vol] 90.8 fL Normal 80.0-100.0 [facility] Comment on above: Performed By: #### 2 262863 #### [facility] [address] [place] [address] Monocytes (Bld) [#/Vol] 0.6 E9/L Normal 0.2-1.0 [facility] Comment on above: Performed By: #### 2 768997 #### [facility] [address] [place] [address] Neutrophils (Bld) [#/Vol] 8.1 E9/L High 2.0-7.5 [facility] Comment on above: Performed By: #### 2 575957 #### [facility] [address] [place] [address] Neutrophils/100 WBC (Bld) 82.2 % High 36.0-75.0 [facility] Comment on above: Performed By: #### 2 192108 #### [facility] [address] [place] [address] Platelet 695.0 E9/L High 150.0-500.0 [facility] Comment on above: Performed By: #### 2 006232 #### [facility] [address] [place] [address] Platelet mean volume (Bld) [Entitic vol] 6.5 fL Normal 6.4-10.8 [facility] Comment on above: Performed By: #### 2 708201 #### [facility] [address] [place] [address] RBC (Bld) [#/Vol] 3.3 E12/L Low 4.3-5.9 [facility] Comment on above: Performed By: #### 2 186100 #### [facility] [address] [place] [address] WBC corrected for nucl RBC Auto (Bld) [#/Vol] 9.9 E9/L Normal 4.0-11.0 [facility] Comment on above: Result Comment: Cele pheral smear review performed. Performed By: #### 2 066127 #### [facility] [address] [place] [address] CHEMISTRYOrdered By: SYSTEM SYSTEM on 12-23-2024 Albumin [...] STATES SHE HAD PERIANAL SX DONE AT [facility] ON [address]. PT STATES THEY FOUND 3 [...] thickened left perianal fluid collection with thickened oakley again identified. Drainage catheter visualized extending from [...] Vega FINAL REPORT Dictated: 12/23/2024 2:49 pm Anshul Cardoza MD Signed (Electronic Signature): 12/23/2024 2:49 pm Signed by: Anshul Cardoza MD Transcribed by: CLARICE Technologist: IHSAN Pemberton [facility] ED Clinical Summaryon 2024 ED Clinical Summary ED Clinical Summary [place] [id number] ED Clinical Summary Person Information Name: ROLA AGUILAR [facility] Age: 29 Years : 1995 Sex: Female Language: [place] PCP: NONE, XXXX Marital Status: Single Visit [...] 12/23/2024 16:04:03 12/23/2024 16:04:03 12/23/2024 16:04:03 ADDRESS: [address] [place] [id number] PHYS DOC NOTES: MEDICAL INFORMATION: Prescriptions Given: New Medications [facility]/pharmacy #[id number], [address] [place], [place] [id number], [phone] oxycodone (oxyCODONE 5 mg Cap) 1 Capsules By Mouth every 6 hours as needed for pain. Refills: 0. Medications to Continue Taking That Have Changed [facility]/pharmacy #6173, [address] [place], [place] [id number], [phone] START: promethazine (promethazine 25 mg Tab) 1 [...] Address: When: SRAVANI KAYE [address] [place], [place] [id number] In 3 days 12/26/2024 With: Address: When: [address] [place] [address] [facility] (1) In 3 days 12/26/2024 DIAGNOSIS: IBD (inflammatory bowel disease); Perianal abscess Normal [facility] ED Note-Physicianon 12-24-19 ED Note-Physician ED Note-Physician Basic Information Time Seen: Gadiel Vega PA-C 12/23/2024 13:03 Chief Complaint pt presents with c/o abdominal pain. states she had abdominal procedure done at [facility] on saturday. pt states they found 3 fistulas and had drain placed. pt states dr. beto marroquindted her to ED History of Present Illness Patient is a 29-year-old female with a history of anxiety, bipolar disorder, seizures, tachycardia, pressure ulcers, and Crohn's disease status post ileostomy who presents to the ED for evaluation of her continued abdominal pain with nausea. Patient states that she was just seen here in the ED a week ago and transferred to [facility] due to a Viet anal abscess. Upon having surgery with exploratory laparotomy they were able to find 3 fistulas and she had a drain placed. She states that they did not find any abscess at that time. She was scheduled to follow-up with Dr. Bhardwaj our color control operator here at [facility] who saw and evaluated her in [...] on 01/08/2025 with her colorectal surgeon through [facility]. She attempted to get a hold of her colorectal surgeon but they are out of town on vacation. She is scheduled this 12/25/2024 to see an IBD specialist in [place]. She denies any fevers, body aches, chills. [...] nausea. She just transferred last week to [facility] due to a perianal abscess and had an exploratory surgery in which they found 3 fistulas and had a drain placed but they did not find any abscess at that time. There was concern about possible sepsis at that time as well. She was seen and evaluated by Dr. Beto damon color control operator at [facility] who saw her in the office today and recommended she come to the ED because she is having increasing pain on proportion to her baseline status post the procedure. She is scheduled for proctocolectomy on 01/08/2025 with her colorectal surgeon through pain clinic and is scheduled to see an IBD specialist at [facility] on 12/25/2024. On exam patient is [...] Perianal fissure/absce (more content not included)... Normal [facility] Comment on above: Result Comment: Elec tronically Signed By: Gadiel Vega PA-C\.br\Date and Time Signed: 12/23/24 15:50 EDT\.br\Electronically Co-Signed By: Harry Devine DO\.br\Date and Time Co-Signed: 12/23/24 18:48 EDT ED Patient Summaryon 025 ED Patient Summary ED Patient Summary [place] [id number] Patient Discharge Instructions Person Information Name: ROLA AGUILAR Age: 29 Years Arrival Date: 12/23/2024 12:49:37 Discharge Diagnosis: IBD (inflammatory bowel disease); Perianal abscess Primary Care Physician: NONE, XXXX Provider Information Primary Provider: Harry Devine DO Advanced Registered Nurse Maternity:Gary LEDESMA, Gadiel Singer. The exam and treatment you received in the Emergency Department were for an urgent problem and are not intended as complete care. It is important that you follow up with a doctor, nurse practitioner, or physician???s housekeeping assistant for ongoing care. If your symptoms become worse or you do not improve as expected and you are unable to reach your usual health care provider, you should return to the Emergency Department. We are available 24 hours a day. ROLA AGUILAR has been given the following list of patient education materials, prescriptions and follow-up instructions: Follow-up Instructions: With: Address: When: SRAVANI KAYE [address] [place], [place] [id number] In 3 days 12/26/2024 With: Address: When: [address] [address] [place] [address] Business (1) In 3 days 12/26/2024 In the event that this physician does not participate in your insurance network, please consult with your insurance company to find a nearby participating provider. Patient Education Materials: Anorectal Abscess; Crohn's Disease A MESSAGE TO ALL PATIENTS REGARDING OPIOIDS PRESCRIPTION OPIOIDS: WHAT YOU NEED TO KNOW Prescription opioids can be used to help relieve lpcnsmjx-lb-qlmzpn pain and are often prescribed following a [...] about the (more content not included)... Normal [facility] Extra Blueon 12-23-2024 Tube Collected Plasma Yes Invalid Interpretation Code [facility] Comment on above: Performed By: #### 1 [id number] #### [facility] [address] [place] [address] Gastroenterology Office/Clin ic Noteon 12-23-2024 Gastroenterology Office/Clinic Note Gastroenterology Office/Clinic Note Chief Complaint Crohn's HPI Staff New patient is a(n) 29 year old female who presents today for a f/u from [facility] 10/02/24 for nausea, vomiting and diarrhea. [...] for a proctocolectomy on January 08 at [facility] with colorectal surgeon. Patient NOT currently receiving Entyvio pen 108 mg/0.68 ml pen subq every other week. Serviced through [facility]. 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 Seen at [facility] 08/2018 for creation of loop ileostomy. Any blood thinners? Any GLP-1 agonists? Last GI consult 02/25/24 w/Dr. Heriberto Humphries @ [facility]: PLAN 28-year-old female presents for hospital follow-up [...] fL (10/02/24) Chloride: 90 mmol/L Low (10/02/24) [place] Absolute: 1 E9/L (10/02/24) CO2: 29 mmol/L (10/02/24) [place] Auto: 7.8 % (10/02/24) Creatinine: 0.7 mg/dL [...] 54.7 kg (more content not included)... Normal [facility] Comment on above: Result Comment: Elec tronically Signed By: Beto GILES, Ja Marques\.br\Date and Time Signed: 12/23/24 [...] 12-23-2024 Albumin [Mass/Vol] 2.5 g/dL Low 3.3-5.0 [facility] Comment on above: Performed By: #### 2 [id number] #### [facility] [address] [place] [address] Albumin/Globulin (S) [Mass conc ratio] 0.7 Low 1.1-2.2 [facility] Comment on above: Performed By: #### 2 568359 #### [facility] [address] [place] [address] ALP [Catalytic activity/Vol] 169 Int._Unit/L High 21-98 [facility] Comment on above: Performed By: #### 2 102210 #### [facility] [address] [place] [address] ALT No additional P-5'-P [Catalytic activity/Vol] 11 Int._Unit/L Normal 6-46 [facility] Comment on above: Performed By: #### 2 653063 #### [facility] [address] [place] [address] AST [Catalytic activity/Vol] 14 Int._Unit/L Normal 5-43 [facility] Comment on above: Performed By: #### 2 327700 #### [facility] [address] [place] [address] Bilirubin [Mass/Vol] 0.2 mg/dL Normal 0.0-1.1 [facility] Comment on above: Performed By: #### 2 695551 #### [facility] [address] [place] [address] Bilirubin.direct [Mass/Vol] 0.1 mg/dL Normal 0.0-0.4 [facility] Comment on above: Performed By: #### 2 311555 #### [facility] [address] [place] [address] Bilirubin.indirect [Mass or moles/Vol] 0.1 mg/dL Normal 0.1-0.9 [facility] Comment on above: Performed By: #### 2 [id number] #### [facility] [address] [place] [address] Globulin (S) [Mass/Vol] 3.7 g/dL Normal 1.4-4.0 [facility] Comment on above: Performed By: #### 2 949824 #### [facility] [address] [place] [address] Protein [Mass/Vol] 6.2 g/dL Normal 6.0-7.8 [facility] Comment on above: Performed By: #### 2 627657 #### [facility] [address] [place] [address] Lactic Acidon 12-23-2024 Lactic Acid Lvl 1.1 mmol/L Normal 0.5-2.2 [facility] Comment on above: Performed By: #### 2 [id number] #### [facility] [address] [place] [address] Lipase Levelon 12-23-2024 Lipase [Catalytic activity/Vol] 30 U/L Normal 13-58 [facility] Comment on above: Performed By: #### 2 493943 #### [facility] [address] [place] [address] SEROLOGYOrdered By: Loni Manley on 12-23-2024 HCG.beta subunit (U) [Moles/Vol] Negative Normal [facility] Man Sero U BetaHcg Qualon 12-23-2024 HCG.beta subunit (U) [Moles/Vol] Negative Normal [facility] Comment on above: Performed By: #### 2 [id number] #### [facility] [address] [place] [address] UA with Cult Rflxon 12-24-19 25 Bilirubin Ql (U) Negative Normal Negative [facility] Comment on above: Performed By: #### 4 [id number] #### [facility] [address] [place] [address] Clarity (U) Clear Normal Clear [facility] Comment on above: Performed By: #### 4 [id number] #### [facility] [address] [place] [address] Color (U) Yellow Normal Yellow [facility] Comment on above: Result Comment: Micr oscopic readings are only performed on those samples that meet specific criteria set forth by [facility]. Performed By: #### 4 [id number] #### [facility] [address] [place] [address] Glucose Ql (U) Negative Normal Negative [facility] Comment on above: Performed By: #### 4 [id number] #### [facility] [address] [place] [address] Hemoglobin Auto test strip (U) [Mass/Vol] Negative Normal Negative [facility] Comment on above: Performed By: #### 4 [id number] #### [facility] [address] [place] [address] Ketones Auto test strip Ql (U) Negative Normal Negative [facility] Comment on above: Performed By: #### 4 [id number] #### [facility] [address] [place] [address] Leukocyte esterase Auto test strip Ql (U) 75 Cristela/uL Abnormal Negative [facility] Comment on above: Performed By: #### 4 [id number] #### [facility] [address] [place] [address] Mucus Auto Ql (U) Trace Normal Negative [facility] Comment on above: Performed By: #### 4 [id number] #### [facility] [address] [place] [address] Nitrite Auto test strip Ql (U) Negative Normal Negative [facility] Comment on above: Performed By: #### 4 [id number] #### [facility] [address] [place] [address] pH (U) 6.0 [pH] Invalid Interpretation Code 5.0-9.0 [facility] Comment on above: Performed By: #### 4 [id number] #### [facility] [address] [place] [address] Protein Ql (U) Trace Abnormal Negative [facility] Comment on above: Performed By: #### 4 [id number] #### [facility] [address] [place] [address] Specific gravity (U) [Rel density] 1.032 Invalid Interpretation Code 1.005-1.030 [facility] Comment on above: Performed By: #### 4 [id number] #### [facility] [address] [place] [address] Urobilinogen (U) [Mass/Vol] Negative Normal Negative [facility] Comment on above: Performed By: #### 4 [id number] #### [facility] [address] [place] [address] WBC Auto (Urine sed) [#/Area] 0-5 Normal 0-5 [facility] Comment on above: Performed By: #### 4 [id number] #### [facility] [address] [place] [address] Type of Urine collection method Clean Catch Normal [facility] Comment on above: Performed By: #### 4 [id number] #### [facility] [address] [place] [address] URINALYSISOrdered By: SYSTEM SYSTEM on 12-23-2024 Bilirubin Ql (U) Negative Normal Negativemg/dL [facility] UA Auto SS Clarity (U) Clear (12/23/24 1:55 PM) Normal Clear [facility] UA Auto SS Color (U) Yellow 1 (12/23/24 1:55 PM) Normal Yellow [facility] UA Auto SS Comment on above: Interpretive Data: M icroscopic readings are only performed on those samples that meet specific criteria set forth by [facility]. Glucose Ql (U) Negative Normal Negativemg/dL [...] (Urine sed) [#/Area] 0-5 graded/HPF Normal 0-5graded/HPF [facility] UA Auto SS URINALYSISOrdered By: Gadiel Vega on 12-23-2024 UA Spec Desc Clean Catch (12/23/24 1:55 PM) Normal [facility] UA Auto SS eGFRon 12-23-2024 eGFR 130 mL/min/1.73 m2 Normal >=59 [facility] Comment on above: Performed By: #### 1 [id number] #### [facility] [address] [place] [address] C Urineon 12-19-2024 Bacteria identified Cx Nom [...] Locations R1: This test was performed at: [facility], [address] [place] [address], [address]- , , Normal [facility] Comment on above: Performed By: #### 2 [id number] #### [facility] [address] [place] [address]71 ANES POSTPROC EVALon 025 ANES POSTPROC EVAL HNO ID: [id number] Author: AYANA FELIX DO Service: Anesthesiology Author Type: Anesthesiologist Type: Anesthesia Postprocedure Evaluation Filed: 12/18/2024 14:02 Note Text: POST ANESTHESIA EVALUATION NOTE : 1995 Procedure Summary Date: 12/18/24 Room / Location: [facility] OR06 / [facility] OR Anesthesia Start: 1129 Anesthesia Stop: 1222 [...] December 18, 2024 TIME: 2:02 PM CSN: [id number] [facility] ANES PRE-OPon 12-18-2024 ANES PRE-OP HNO ID: [id number] Author: AYANA FELIX DO Service: Anesthesiology Author Type: Anesthesiologist Type: Anesthesia Preprocedure Evaluation Filed: 12/18/2024 11:47 Note Text: ANESTHESIOLOGY DAY OF SURGERY NOTE : 1995 Procedure Information Anesthesia Start Date/Time: 12/18/24 1129 Procedure: EXAM UNDER ANESTHESIA RECTAL (Anus) Location: OR06 / OR Surgeons: Komal Hernandez MD Estimated [...] and consent discussed: yes. Patient / Responsible Libertarian agrees to proceed: yes Patient / Surrogate [...] December 18, 2024 TIME: 11:46 AM CSN: [id number] Normal [facility] Basic metabolic 2000 panelon 12-18-2024 Anion gap [Moles/Vol] 11 mmol/L Normal 8-15 [facility] Comment on above: Order Comment: [place] rio Type: BLOOD SPECIMEN Ordering Facility: [facility] Address: [address] [place] [address] Performed By: #### 2 4321-2 #### [facility] CLIA [id number] [address] [place] [address] [place] Performed By: #### 2 777-1, 67697-6, 69576-6 #### [facility] CLIA [id number] [address] [place] [address] [place] Calcium [Mass/Vol] 7.5 mg/dL Low 8.5-10.2 [facility] Comment on above: Order Comment: [place] Type: BLOOD SPECIMEN Ordering Facility: [facility] Address: [address] [place] [address] Performed By: #### 2 4321-2 #### [facility] CLIA [id number] [address] [place] [address] Performed By: #### 2 777-1, 75873-3, #### [facility] CLIA [id number] [address] [place] [address] [place] Chloride [Moles/Vol] 103 mmol/L Normal 98-107 [facility] Comment on above: Order Comment: Speci men Type: BLOOD SPECIMEN Ordering Facility: [facility] Address: [address] [place] [address] Performed By: #### 2 4321-2 #### [facility] CLIA [id number] [address] [place] [address] Performed By: #### 2 777-1, , #### [facility] CLIA [id number] [address] [place] [address] [place] CO2 [Moles/Vol] 23 mmol/L Normal 22-30 [facility] Comment on above: Order Comment: Speci men Type: BLOOD SPECIMEN Ordering Facility: [facility] Address: [address] [place] [address] Performed By: #### 2 4321-2 #### [facility] CLIA [id number] [address] [place] [address] Performed By: #### 2 777-1, , #### [facility] CLIA [id number] [address] [place] [address] [place] Creatinine [Mass/Vol] 0.75 mg/dL Normal 0.58-0.96 [facility] Comment on above: Order Comment: Speci men Type: BLOOD SPECIMEN Ordering Facility: [facility] Address: [address] [place] [address] Performed By: #### 2 4321-2 #### [facility] CLIA [id number] [address] [place] [address] Performed By: #### 2 777-1, 77609-0, 61404-0 #### [facility] CLIA [id number] Creatinine and Glomerular filtration rate.predicted panel (S/P/Bld) 111 mL/min/1.73m??? Normal >=60 [facility] Comment on above: Order Comment: [place] ri[place] Type: BLOOD SPECIMEN Ordering Facility: [facility] Address: [address] [place] [address] Result Comment: Alysha mated Glomerular Filtration Rate [...] GFR. Performed By: #### 2 4321-2 #### [facility] CLIA [id number] [place] [address] Performed By: #### 2 777-1, 73144-3, 89980-7 #### [facility] CLIA [id number] [place] [address] [place] Glucose [Mass/Vol] 90 mg/dL Normal 74-99 [facility] Comment on above: Order Comment: [place]a [place] rio Type: BLOOD SPECIMEN Ordering Facility: [facility] Address: [address] [place] [address] Result Comment: The [place] Diabetes Association (ADA) provides guidance for cutoff [...] Standards of Medical Care in Diabetes 2016, [place] Diabetes Association. Diabetes Care. 2016.39(Suppl 1). Performed By: #### 2 4321-2 #### [facility] CLIA [id number] [address] [place] [address] [place] Performed By: #### 2 777-1, 65595-1, #### [facility] CLIA [id number] [address] [place] [address] [place] Potassium [Moles/Vol] 3.6 mmol/L Low 3.7-5.1 [facility] Comment on above: Order Comment: Speci men Type: BLOOD SPECIMEN Ordering Facility: [facility] Address: [address] [place] [address] Performed By: #### 2 4321-2 #### [facility] CLIA [id number] [address] [place] [address] [place] Performed By: #### 2 777-1, 54276-0, #### [facility] CLIA [id number] [address] [place] [address] [place] Sodium [Moles/Vol] 137 mmol/L Normal 136-144 [facility] Comment on above: Order Comment: Speci men Type: BLOOD SPECIMEN Ordering Facility: [facility] Address: [address] [place] [address] Performed By: #### 2 4321-2 #### [facility] CLIA [id number] [address] [place] [address] [place] Performed By: #### 2 777-1, 55715-5, #### [facility] CLIA [id number] [address] [place] [address] [place] Urea nitrogen [Mass/Vol] 5 mg/dL Low 7-21 [facility] Comment on above: Order Comment: Speci men Type: BLOOD SPECIMEN Ordering Facility: [facility] Address: [address] [place] [address] Performed By: #### 2 4321-2 #### [facility] CLIA [id number] [address] [place] [address] [place] Performed By: #### 2 777-1, 98666-4, 38641-6 #### [facility] CLIA [id number] [address] [place] [address] [place] CBC W Auto Differential pane l (Bld)on 12-18-2024 Basophils (Bld) [#/Vol] 0.04 10*3/uL Normal <0.11 [facility] Comment on above: Order Comment: Speci men Type: BLOOD SPECIMEN Ordering Facility: [facility] Address: [address] [place] [address] Performed By: #### 5 7021-8 #### [facility] CLIA [id number] [address] [place] [address] [place] Basophils/100 WBC (Bld) 0.5 % Normal [facility] Comment on above: Order Comment: Speci men Type: BLOOD SPECIMEN Ordering Facility: [facility] Address: [address] [place] [address] Performed By: #### 5 7021-8 #### [facility] CLIA [id number] [address] [place] [address] [place] Differential cell count method Nom (Bld) Auto Normal [facility] Comment on above: Order Comment: Speci men Type: BLOOD SPECIMEN Ordering Facility: [facility] Address: [address] [place] [address] Performed By: #### 5 7021-8 #### [facility] CLIA [id number] [address] [place] [address] [place] Eosinophils (Bld) [#/Vol] 0.22 10*3/uL Normal <0.46 [facility] Comment on above: Order Comment: Speci men Type: BLOOD SPECIMEN Ordering Facility: [facility] Address: [address] [place] [address] Performed By: #### 5 7021-8 #### [facility] CLIA [id number] [address] [place] [address] [place] Eosinophils/100 WBC (Bld) 2.8 % Normal [facility] Comment on above: Order Comment: Speci men Type: BLOOD SPECIMEN Ordering Facility: [facility] Address: [address] [place] [address] Performed By: #### 5 7021-8 #### [facility] CLIA [id number] [address] [place] [address] [place] Erythrocyte distribution width (RBC) [Ratio] 15.5 % High 11.5-15.0 [facility] Comment on above: Order Comment: Speci men Type: BLOOD SPECIMEN Ordering Facility: [facility] Address: [address] [place] [address] Performed By: #### 5 7021-8 #### [facility] CLIA [id number] [address] [place] [address] [place] Hematocrit (Bld) [Volume fraction] 28.1 % Low 36.0-46.0 [facility] Comment on above: Order Comment: Speci men Type: BLOOD SPECIMEN Ordering Facility: [facility] Address: [address] [place] [address] Performed By: #### 5 7021-8 #### [facility] CLIA [id number] [address] [place] [address] [place] Hemoglobin (Bld) [Mass/Vol] 8.6 g/dL Low 11.5-15.5 [facility] Comment on above: Order Comment: Speci men Type: BLOOD SPECIMEN Ordering Facility: [facility] Address: [address] [place] [address] Performed By: #### 5 7021-8 #### [facility] CLIA [id number] [address] [place] [address] [place] Immature granulocytes (Bld) [#/Vol] 0.05 10*3/uL Normal <0.10 [facility] Comment on above: Order Comment: Speci men Type: BLOOD SPECIMEN Ordering Facility: [facility] Address: [address] [place] [address] Performed By: #### 5 7021-8 #### [facility] CLIA [id number] [address] [place] [address] [place] Immature granulocytes/100 WBC (Bld) 0.6 % Normal [facility] Comment on above: Order Comment: Speci men Type: BLOOD SPECIMEN Ordering Facility: [facility] Address: [address] [place] [address] Performed By: #### 5 7021-8 #### [facility] CLIA [id number] [address] [place] [address] [place] Lymphocytes (Bld) [#/Vol] 1.05 10*3/uL Normal 1.00-4.00 [facility] Comment on above: Order Comment: Speci men Type: BLOOD SPECIMEN Ordering Facility: [facility] Address: [address] [place] [address] Performed By: #### 5 7021-8 #### [facility] CLIA [id number] [address] [place] [address] Lymphocytes/100 WBC (Bld) 13.5 % Normal [facility] Comment on above: Order Comment: Speci men Type: BLOOD SPECIMEN Ordering Facility: [facility] Address: [address] [place] [address] Performed By: #### 5 7021-8 #### [facility] CLIA [id number] [address] [place] [address] [place] MCH (RBC) [Entitic mass] 28.6 pg Normal 26.0-34.0 [facility] Comment on above: Order Comment: Speci men Type: BLOOD SPECIMEN Ordering Facility: [facility] Address: [address] [place] [address] Performed By: #### 5 7021-8 #### [facility] CLIA [id number] [address] [place] [address] [place] MCHC (RBC) [Mass/Vol] 30.6 g/dL Normal 30.5-36.0 [facility] Comment on above: Order Comment: Speci men Type: BLOOD SPECIMEN Ordering Facility: [facility] Address: [address] [place] [address] Performed By: #### 5 7021-8 #### [facility] CLIA [id number] [address] [place] [address] [place] MCV (RBC) [Entitic vol] 93.4 fL Normal 80.0-100.0 [facility] Comment on above: Order Comment: Speci men Type: BLOOD SPECIMEN Ordering Facility: [facility] Address: [address] [place] [address] Performed By: #### 5 7021-8 #### [facility] CLIA [id number] [address] [place] [address] [place] Monocytes (Bld) [#/Vol] 1.05 10*3/uL High <0.87 [facility] Comment on above: Order Comment: Speci men Type: BLOOD SPECIMEN Ordering Facility: [facility] Address: [address] [place] [address] Performed By: #### 5 7021-8 #### [facility] CLIA [id number] [address] [place] [address] [place] Monocytes/100 WBC (Bld) 13.5 % Normal [facility] Comment on above: Order Comment: Speci men Type: BLOOD SPECIMEN Ordering Facility: [facility] Address: [address] [place] [address] Performed By: #### 5 7021-8 #### [facility] CLIA [id number] [address] [place] [address] [place] Neutrophils (Bld) [#/Vol] 5.37 10*3/uL Normal 1.45-7.50 [facility] Comment on above: Order Comment: Speci men Type: BLOOD SPECIMEN Ordering Facility: [facility] Address: [address] [place] [address] Performed By: #### 5 7021-8 #### [facility] CLIA [id number] [address] [place] [address] [place] Neutrophils/100 WBC (Bld) 69.1 % Normal [facility] Comment on above: Order Comment: Speci men Type: BLOOD SPECIMEN Ordering Facility: [facility] Address: [address] [place] [address] Performed By: #### 5 7021-8 #### [facility] CLIA [id number] [address] [place] [address] [place] Nucleated RBC (Bld) [#/Vol] 10*3/uL Normal <0.01 [facility] Comment on above: Order Comment: Speci men Type: BLOOD SPECIMEN Ordering Facility: [facility] Address: [address] [place] [address] Performed By: #### 5 7021-8 #### [facility] CLIA [id number] [address] [place] [address] [place] Nucleated RBC/100 WBC (Bld) [Ratio] 0.0 /100 WBC Normal [facility] Comment on above: Order Comment: Speci men Type: BLOOD SPECIMEN Ordering Facility: [facility] Address: [address] [place] [address] Performed By: #### 5 7021-8 #### [facility] CLIA [id number] [address] [place] [address] [place] Platelet mean volume (Bld) [Entitic vol] 8.6 fL Low 9.0-12.7 [facility] Comment on above: Order Comment: Speci men Type: BLOOD SPECIMEN Ordering Facility: [facility] Address: [address] [place] [address] Performed By: #### 5 7021-8 #### [facility] CLIA [id number] [address] [place] [address] [place] Platelets (Bld) [#/Vol] 502 10*3/uL High 150-400 [facility] Comment on above: Order Comment: Speci men Type: BLOOD SPECIMEN Ordering Facility: [facility] Address: [address] [place] [address] Performed By: #### 5 7021-8 #### [facility] CLIA [id number] [address] [place] [address] [place] RBC (Bld) [#/Vol] 3.01 10*6/uL Low 3.90-5.20 [facility] Comment on above: Order Comment: Speci men Type: BLOOD SPECIMEN Ordering Facility: [facility] Address: [address] [place] [address] Performed By: #### 5 7021-8 #### [facility] CLIA [id number] [address] [place] [address] [place] WBC (Bld) [#/Vol] 7.78 10*3/uL Normal 3.70-11.00 [facility] Comment on above: Order Comment: [place] Type: BLOOD SPECIMEN Ordering Facility: [facility] Address: [facility] [place] [address] Performed By: #### 5 7021-8 #### [facility] CLIA [id number] [address] [place] [id number] [place] CNDSon 12-18-2024 CNDS HNO ID: [id number] Author: JODIE CARRION MD Service: Colorectal Author Type: Resident [...] Your Medications These medications were sent to [facility] [address] [place] [address] Hours: Saturday-Saturday: 7am-7pm, Sat: 9am-1pm acetaminophen 500 mg tablet amoxicillin-clavulana te potassium 875-125 mg per tablet oxyCODONE IR 5 mg immediate release tablet Follow-up Appointments: Future Appointments Date Time Provider Department Center 12/25/2024 11:40 AM Anand Conte APRN.[employer] [facility] Highest Readmission Risk Score: 19 The 30 [...] RISK M (more content not included)... Normal [facility] OPERATIVE NOon 12-18-2024 OPERATIVE NO HNO ID: [id number] Author: KOMAL HERNANDEZ MD Service: Colorectal Author Type: Physician Type: Operative Report Filed: 12/18/2024 12:26 Note Text: COLON AND RECTAL SURGERY OPERATIVE REPORT PATIENT NAME: Rola Aguilar ADMISSION DATE: 12/17/2024 LOG ID: [id number] SURGERY/PROCEDURE DATE: 12/18/2024 INCISION/PROCEDURE START TIME: 11:57 AM INCISION CLOSE/PROCEDURE END TIME: 12:09 PM AGE: [age] year old SEX: female SURGEON(S)/PROCEDURAL IST(S) AND VEST FRONT PRESSER(S): Surgeons and Role: * Komal Hernandez MD [...] Division of Colon and Rectal Surgery Normal [facility] B-HCG SerPl-aCncon HCG.beta subunit Qn m[IU]/mL Normal <5.0 [facility] Comment on above: Order Comment: Speci men Type: BLOOD SPECIMEN Ordering Facility: [facility] Address: [address] [place] [address] Result Comment: Nega tive Performed By: #### 2 1198-7 #### [facility] CLIA [id number] [address] [place] [address] Performed By: #### 2 777-1, 82327-2, #### [facility] CLIA [id number] [address] [place] [address] [place] CBC panel Auto (Bld)on 12-17 Erythrocyte distribution width (RBC) [Ratio] 15.3 % High 11.5-15.0 [facility] Comment on above: Order Comment: Speci men Type: BLOOD SPECIMENOrdering Facility: [facility] Address: [address] [place] [address] Performed By: #### 5 8410-2 ####[facility] [id number] [address] [place] Order Comment: Speci men Type: BLOOD SPECIMEN Ordering Facility: [facility] Address: [address] [place] [address] Performed By: #### 2 777-1, 79987-6, #### [facility] CLIA [id number] [address] [place] [address] Hematocrit (Bld) [Volume fraction] 35.2 % Low 36.0-46.0 [facility] Comment on above: Order Comment: Speci men Type: BLOOD SPECIMENOrdering Facility: [facility] Address: [address] [place] [address] Performed By: #### 5 8410-2 ####[facility] [id number] [address] Order Comment: Speci men Type: BLOOD SPECIMEN Ordering Facility: [facility] Address: [address] [place] [address] Performed By: #### 2 777-1, 81413-6, #### [facility] CLIA [id number] [address] [place] [address] [place] Hemoglobin (Bld) [Mass/Vol] 10.4 g/dL Low 11.5-15.5 [facility] Comment on above: Order Comment: Speci men Type: BLOOD SPECIMENOrdering Facility: [facility] Address: [address] [place] [address] Performed By: #### 5 8410-2 ####[facility] [id number] [address] Order Comment: Speci men Type: BLOOD SPECIMEN Ordering Facility: [facility] Address: [address] [place] [address] Performed By: #### 2 777-1, , #### [facility] CLIA [id number] [address] [place] [address] [place] MCH (RBC) [Entitic mass] 28.1 pg Normal 26.0-34.0 [facility] Comment on above: Order Comment: Speci men Type: BLOOD SPECIMENOrdering Facility: [facility] Address: [address] [place] [address] Performed By: #### 5 8410-2 ####[facility] [id number] [address] Order Comment: Speci men Type: BLOOD SPECIMEN Ordering Facility: [facility] Address: [address] [place] [address] Performed By: #### 2 777-1, 68292-6, #### [facility] CLIA [id number] [address] [place] [address] [place] MCHC (RBC) [Mass/Vol] 29.5 g/dL Low 30.5-36.0 [facility] Comment on above: Order Comment: Speci men Type: BLOOD SPECIMENOrdering Facility: [facility] Address: [address] [place] [address] Performed By: #### 5 8410-2 ####[facility] [id number] [address] Order Comment: Speci men Type: BLOOD SPECIMEN Ordering Facility: [facility] Address: [address] [place] [address] Performed By: #### 2 777-1, , #### [facility] CLIA [id number] [address] [place] [address] [place] MCV (RBC) [Entitic vol] 95.1 fL Normal 80.0-100.0 [facility] Comment on above: Order Comment: Speci men Type: BLOOD SPECIMENOrdering Facility: [facility] Address: [address] [place] [address] Performed By: #### 5 8410-2 ####[facility] [id number] [address] Order Comment: Speci men Type: BLOOD SPECIMEN Ordering Facility: [facility] Address: [address] [place] [address] Performed By: #### 2 777-1, , #### [facility] CLIA [id number] [address] [place] [address] [place] Nucleated RBC (Bld) [#/Vol] 10*3/uL Normal <0.01 [facility] Comment on above: Order Comment: Speci men Type: BLOOD SPECIMENOrdering Facility: [facility] Address: [address] [place] [address] Performed By: #### 5 8410-2 ####[facility] [id number] [address] Order Comment: Speci men Type: BLOOD SPECIMEN Ordering Facility: [facility] Address: [facility] [place] [address] Performed By: #### 2 777-1, , #### [facility] CLIA [id number] [place] [address] [place] Platelet mean volume (Bld) [Entitic vol] 8.7 fL Low 9.0-12.7 [facility] Comment on above: Order Comment: Speci men Type: BLOOD SPECIMENOrdering Facility: [facility] Address: [address] [place] [address] Performed By: #### 5 8410-2 ####[facility] [id number] [address] Order Comment: Speci men Type: BLOOD SPECIMEN Ordering Facility: [facility] Address: [address] [place] [address] Performed By: #### 2 777-1, , #### [facility] CLIA [id number] [place] [address] [place] Platelets (Bld) [#/Vol] 645 10*3/uL High 150-400 [facility] Comment on above: Order Comment: Speci men Type: BLOOD SPECIMENOrdering Facility: [facility] Address: [address] [place] [address] Performed By: #### 5 8410-2 ####[facility] [id number] [address] Order Comment: Speci men Type: BLOOD SPECIMEN Ordering Facility: [facility] Address: [facility] [place] [address] Performed By: #### 2 777-1, , #### [facility] CLIA [id number] [place] [address] [place] RBC (Bld) [#/Vol] 3.70 10*6/uL Low 3.90-5.20 [facility] Comment on above: Order Comment: Speci men Type: BLOOD SPECIMENOrdering Facility: [facility] Address: [address] [place] [address] Performed By: #### 5 8410-2 ####[facility]ORYCLIA [id number] [address] Order Comment: Speci men Type: BLOOD SPECIMEN Ordering Facility: [facility] Address: [address] [place], [place] [address] Performed By: #### 2 777-1, 32405-1, #### [facility] CLIA [id number] [address] [place] [address] OF [place] WBC (Bld) [#/Vol] 9.25 10*3/uL Normal 3.70-11.00 [facility] Comment on above: Order Comment: Speci men Type: BLOOD SPECIMENOrdering Facility: [facility] Address: [address] [place] [address] Performed By: #### 5 8410-2 ####[facility] [id number] [address] Order Comment: Speci men Type: BLOOD SPECIMEN Ordering Facility: [facility] Address: [address] [place] [address] Performed By: #### 2 777-1, 64958-1, #### [facility] CLIA [id number] [address] [place] [address] CHEMISTRYOrdered By: SYSTEM SYSTEM on 12-17-2024 Lactic Acid Lvl 1.5 mmol/L Normal 0.5 - 2.2 mmol/L Remisol Chem CRP SerPl-mCncon 12-17-2024 CRP [Mass/Vol] 14.3 mg/dL High <0.9 [facility] Comment on above: Order Comment: Speci men Type: BLOOD SPECIMEN Ordering Facility: [facility] Address: [address] [place] [address] Performed By: #### 2 4323-8, 1988-01 #### [facility] CLIA [id number] [address] [place] [id number] [facility] [place] Performed By: #### 2 777-1, 28603-4, 02001-5 #### [facility] CLIA [id number] [address] [place] [id number] [facility] CT Abdomen/Pelvis w/ Contras ton 12-17-2024 [...] DO Transcribed by: CLARICE Technologist: LUCINDA Pemberton [facility] Comprehensive metabolic 2000 panelon 12-17-2024 Albumin [Mass/Vol] 2.0 g/dL Low 3.9-4.9 [facility] Comment on above: Order Comment: Speci men Type: BLOOD SPECIMEN Ordering Facility: [facility] Address: [address] [place] [address] Performed By: #### 2 4323-04, 1988-01 #### [facility] CLIA [id number] Performed By: #### 2 777-1, , #### [facility] CLIA [id number] [address] [place] [address] [place] ALP [Catalytic activity/Vol] 170 U/L High 34-123 [facility] Comment on above: Order Comment: Speci men Type: BLOOD SPECIMEN Ordering Facility: [facility] Address: [address] [place] [address] Performed By: #### 2 43211-28, 1988-01 #### [facility] CLIA [id number] [address] [place] [address] OF [facility] Performed By: #### 2 777-1, , #### [facility] CLIA [id number] [address] [place] [address] [place] ALT [Catalytic activity/Vol] 7 U/L Normal 7-38 [facility] Comment on above: Order Comment: Speci men Type: BLOOD SPECIMEN Ordering Facility: [facility] Address: [address] [place] [address] Performed By: #### 2 4328, 1988-01 #### [facility] CLIA [id number] [address] [place] [address] [place] Performed By: #### 2 777-1, , #### [facility] CLIA [id number] [address] [place] [address] [place] Anion gap [Moles/Vol] 13 mmol/L Normal 8-15 [facility] Comment on above: Order Comment: Speci men Type: BLOOD SPECIMEN Ordering Facility: [facility] Address: [address] [place] [address] Performed By: #### 2 4323-04, 1988-01 #### [facility] CLIA [id number] [address] [place] [address] Performed By: #### 2 777-1, , #### [facility] CLIA [id number] [address] [place] [address] [place] AST [Catalytic activity/Vol] 13 U/L Normal 13-35 [facility] Comment on above: Order Comment: Speci men Type: BLOOD SPECIMEN Ordering Facility: [facility] Address: [address] [place] [address] Performed By: #### 2 4323-04, 1988-01 #### [facility] CLIA [id number] [address] [place] [address] Performed By: #### 2 777-1, , #### [facility] CLIA [id number] [address] [place] [address] [place] Bilirubin [Mass/Vol] 0.3 mg/dL Normal 0.2-1.3 [facility] Comment on above: Order Comment: Speci men Type: BLOOD SPECIMEN Ordering Facility: [facility] Address: [address] [place] [address] Performed By: #### 2 4323-04, 1988-01 #### [facility] CLIA [id number] [address] [place] [address] Performed By: #### 2 777-1, , #### [facility] CLIA [id number] [address] [place] [address] [place] Calcium [Mass/Vol] 7.7 mg/dL Low 8.5-10.2 [facility] Comment on above: Order Comment: Speci men Type: BLOOD SPECIMEN Ordering Facility: [facility] Address: [address] [place] [address] Performed By: #### 2 4328, 1988-01 #### [facility] CLIA [id number] [address] [place] [address] OF [place] Performed By: #### 2 777-1, , #### [facility] CLIA [id number] [address] [place] [address] [place] Chloride [Moles/Vol] 101 mmol/L Normal 98-107 [facility] Comment on above: Order Comment: Speci men Type: BLOOD SPECIMEN Ordering Facility: [facility] Address: [address] [place] [address] Performed By: #### 2 4323-04, 1988-01 #### [facility] CLIA [id number] [address] [place] [address] Performed By: #### 2 777-1, , #### [facility] CLIA [id number] [address] [place] [address] [place] CO2 [Moles/Vol] 22 mmol/L Normal 22-30 [facility] Comment on above: Order Comment: Speci men Type: BLOOD SPECIMEN Ordering Facility: [facility] Address: [address] [place] [address] Performed By: #### 2 4323-04, 1988-01 #### [facility] CLIA [id number] [address] [place] [address] OF [place] Performed By: #### 2 777-1, , #### [facility] CLIA [id number] [address] [place] [address] [place] Creatinine [Mass/Vol] 0.70 mg/dL Normal 0.58-0.96 [facility] Comment on above: Order Comment: Speci men Type: BLOOD SPECIMEN Ordering Facility: [facility] Address: [address] [place] [address] Performed By: #### 2 4323-04, 1988-01 #### [facility] CLIA [id number] [address] [place] [address] OF [place] Performed By: #### 2 777-1, , #### [facility] CLIA [id number] [address] [place] [address] [place] Creatinine and Glomerular filtration rate.predicted panel (S/P/Bld) 120 mL/min/1.73m??? Normal >=60 [facility] Comment on above: Order Comment: [place]a [place] rio Type: BLOOD SPECIMEN Ordering Facility: [facility] Address: [address] [place] [address] Result Comment: Alysha mated Glomerular Filtration Rate [...] actual GFR. Performed By: #### 2 4323-8, 1988-01 #### [facility] CLIA [id number] [place] [address] [place] Performed By: #### 2 777-1, 51665-7, 42339-2 #### [facility] CLIA [id number] [place] [address] [place] Glucose [Mass/Vol] 77 mg/dL Normal 74-99 [facility] Comment on above: Order Comment: [place]a [place] rio Type: BLOOD SPECIMEN Ordering Facility: [facility] Address: [address] [place] [address] Result Comment: The [place] Diabetes Association (ADA) provides guidance for cutoff [...] Standards of Medical Care in Diabetes 2016, [place] Diabetes Association. Diabetes Care. 2016.39(Suppl 1). Performed By: #### 2 4323-04, 1988-01 #### [facility] CLIA [id number] [address] [place] [address] [place] Performed By: #### 2 777-1, , #### [facility] CLIA [id number] [address] [place] [address] [place] Potassium [Moles/Vol] 3.4 mmol/L Low 3.7-5.1 [facility] Comment on above: Order Comment: Speci men Type: BLOOD SPECIMEN Ordering Facility: [facility] Address: [address] [place] [address] Performed By: #### 2 4323-04, 1988-01 #### [facility] CL[facility] [id number] [address] [place] [address] [place] Performed By: #### 2 7771, , #### [facility] CLIA [id number] [address] [place] [address] [place] Protein [Mass/Vol] 5.7 g/dL Low 6.3-8.0 [facility] Comment on above: Order Comment: Speci men Type: BLOOD SPECIMEN Ordering Facility: [facility] Address: [address] [place] [address] Performed By: #### 2 4323-04, 1988-01 #### [facility] CLIA [id number] [address] [place] [address] [place] Performed By: #### 2 777-1, , #### [facility] CLIA [id number] [address] [place] [address] [place] Sodium [Moles/Vol] 136 mmol/L Normal 136-144 [facility] Comment on above: Order Comment: Speci men Type: BLOOD SPECIMEN Ordering Facility: [facility] Address: [address] [place] [address] Performed By: #### 2 4323-04, 1988-01 #### [facility] CLIA [id number] [address] Performed By: #### 2 777-1, 14133-2, #### [facility] CLIA [id number] [address] [place] [address] Urea nitrogen [Mass/Vol] 4 mg/dL Low 7-21 [facility] Comment on above: Order Comment: Speci men Type: BLOOD SPECIMEN Ordering Facility: [facility] Address: [facility] [place] [address] Performed By: #### 2 4323-8, 1988-01 #### [facility] CLIA [id number] [address] [place] [address] Performed By: #### 2 777-1, 69160-3, #### [facility] CLIA [id number] [address] [place], [place] [id number] [facility] ED Clinical Summaryon 2024 ED Clinical Summary ED Clinical Summary [place] [id number] ED Clinical Summary Person Information Name: ROLA AGUILAR [facility]j [facility] Age: 29 Years : 1995 Sex: Female Language: South African PCP: NONE, XXXX Marital Status: Single Visit [...] 12/17/2024 15:00:53 12/17/2024 15:00:53 12/17/2024 15:00:53 ADDRESS: [address] [place] [id number] PHYS DOC NOTES: MEDICAL INFORMATION: Prescriptions Given: [...] colitis; Parastomal hernia; Perirectal abscess; Sepsis Normal [facility] ED Note-Physicianon 12-18-19 ED Note-Physician ED Note-Physician ED Rounding Note HPI: Patient boarding overnight the emergency department while awaiting transfer to [facility]. No events overnight. She remains hemodynamically [...] - Transfer to [facility], accepted to [facility] bed assignment. Sepsis - Sepsis without septic [...] Clears Fluids: LR@125 ml/hr Elliot Macias DO, FAAEM Normal [facility] Comment on above: Result Comment: Elec tronically Signed By: Elliot Macias DO\.br\Date and Time Signed: 12/17/24 08:27 EDT ED Note-Physician ED Note-Physician Basic Information Time Seen: Manan LEDESMA, Nellie Andersen 12/16/2024 22:19 Chief Complaint pt arrives via [facility] from home for c/o abd pain that started this morning. pt states she has ongoing abd issues and scheduled for surgery in december. pt states she does have an ostomy that is having good output still. zofran given by ems HOSPICE SPIRITUAL CARE COORDINATOR History of Present Illness Patient is a [...] January 08 through her colorectal surgeon at [facility] due to these issues. She states she [...] in which patient elected for transfer to [facility] for continuity of care. Case was discussed with certified professional ergonomist colorectal surgeon, Dr. Isaac, who is accepting the patient for transfer to [facility]. Patient is agreeable with the plan. Patient care is being handed off to my supervising physician and disposition is awaiting bed availability. The patient has been accepted by Dr. Isaac at [facility]. We are simply awaiting a bed. Assessment/Plan Crohn's colitis (K50.10: Crohn's disease of large intestine without complications) Parastomal hernia (K43.5: Parastomal (more content not included)... Normal [facility] Comment on above: Result Comment: Elec tronically Signed By: Nellie Hinkle PA-C\.br\Date and Time Signed: 12/17/24 00:42 EDT\.br\Electronically Co-Signed By: Nellie Hinkle PA-C\.br\Date and Time Co-Signed: 12/17/24 00:44 EDT\.br\Electronically Co-Signed By: Heriberto Cervantes MD\.br\Date and Time Co-Signed: 12/17/24 01:54 EDT ED Patient Education Noteon 12-17-2024 ED Patient Education Note ED Patient Education Note Normal [facility] ED Patient Summaryon 025 ED Patient Summary ED Patient Summary [place] [id number] Patient Discharge Instructions Person Information Name: LAUREN ROLA Ward Age: 29 Years Arrival Date: 12/16/2024 21:44:49 Discharge Diagnosis: Crohn's colitis; Parastomal hernia; Perirectal abscess; Sepsis Primary Care Physician: NONE, XXXX Provider Information Primary Provider: Heriberto Cervantes MD Advanced Registered Nurse Maternity:Nellie Hinkle PA-C The exam and treatment you received in the Emergency Department were for an urgent problem and are not intended as complete care. It is important that you follow up with a doctor, nurse practitioner, or physician???s housekeeping assistant for ongoing care. If your symptoms [...] opioids can be used to help relieve rsvttphb-jl-krfmxd pain and are often prescribed following a [...] be struggling with addiction, tell your health adult care manager and ask for guidance or call [facility]???S [employer] at [phone]-FKMB. Source: Department of Health and (more content not included)... Normal [facility] HISTORY PHYSICALon HISTORY PHYSICAL HNO ID: [id number] Author: JODIE CARRION MD Service: Colorectal Author Type: Resident [...] the plan above. [facility] SERVICE DATE: 12/17/2024 SERVICE TIME: 4:32 PM [...] diagnosed seizure disorder. She presented to the [facility] ED with acute worsening of her chronic pain and increased drainage, which exacerbated her anxiety and prompted concern for possible recurrence of her seizures due to stress. She was subsequently transferred to the [place] for higher level of care. On interview, [...] include increased purulent drainage, one fever at [facility], and a fear of eating due to [...] mg INTRAV (more content not included)... Normal [facility] Lactic Acidon 12-17-2024 Lactic Acid Lvl 1.5 mmol/L Normal 0.5-2.2 [facility] Comment on above: Performed By: #### 2 [id number] #### [facility] [address] [place] [address] TYPE + SCREENon 12-17-2024 ABO B [facility] Comment on above: Order Comment: Speci men Type: BLOOD SPECIMEN Order[facility] Facility: [facility] Address: [address] [place] [address] Performed By: #### T SCR #### [facility] CLIA [id number] [address] [place] [address] Order Comment: Speci men Type: BLOOD SPECIMENOrdering Facility: [facility] Address: [address] [place] [address] Performed By: #### T SCR ####[facility] [id number] [address] OF [place] Rh Nom (Bld) Positive [facility] Comment on above: Order Comment: Speci men Type: BLOOD SPECIMEN [facility] Address: [address] [place] [address] Performed By: #### T SCR #### [facility] CLIA [id number] [address] [place] [address] Order Comment: Speci men Type: BLOOD SPECIMENOrdering Facility: [facility] Address: [address] [place] [address] Performed By: #### T SCR ####[facility] [id number] [place] [id number] [facility] TYPE AND SCREEN EXPIRATION 12/20/2024 23:59 Normal [facility] Comment on above: Order Comment: Speci men Type: BLOOD SPECIMEN Ordering [facility]: [facility] Address: [address] [place] [address] Performed By: #### T SCR #### [facility] CLIA [id number] Order Comment: Speci men Type: BLOOD SPECIMENOrdering Facility: [facility] Address: [address] [place] [address] Performed By: #### T SCR ####[facility] [id number] [place] [id number] [facility] UA with Cult [employer] 12-18-19 25 Bilirubin Ql (U) Negative Normal Negative [facility] Comment on above: Performed By: #### 4 [id number] #### [facility] [address] [place] [address] Clarity (U) Clear Normal Clear [facility] Comment on above: Performed By: #### 4 [id number] #### [facility] [address] [place] [address] Color (U) Light-Yellow Normal Yellow [facility] Comment on above: Result Comment: Micr oscopic readings are only performed on those samples that meet specific criteria set forth by [facility]. Performed By: #### 4 [id number] #### [facility] [address] [place] [address] Epithelial cells.squamous Auto (Urine sed) [#/Area] 0-2 Invalid Interpretation Code [facility] Comment on above: Performed By: #### 4 [id number] #### [facility] [address] [place] [address] Glucose Ql (U) Negative Normal Negative [facility] Comment on above: Performed By: #### 4 [id number] #### [facility] [address] [place] [address] Hemoglobin Auto test strip (U) [Mass/Vol] Negative Normal Negative [facility] Comment on above: Performed By: #### 4 [id number] #### [facility] [address] [place] [address] Ketones Auto test strip Ql (U) Negative Normal Negative [facility] Comment on above: Performed By: #### 4 [id number] #### [facility] [address] [place] [address] Leukocyte esterase Auto test strip Ql (U) 250 Cristela/uL Abnormal Negative [facility] Comment on above: Performed By: #### 4 [id number] #### [facility] [address] [place] [address] Mucus Auto Ql (U) Negative Normal Negative [facility] Comment on above: Performed By: #### 4 [id number] #### [facility] [address] [place] [address] Nitrite Auto test strip Ql (U) Negative Normal Negative [facility] Comment on above: Performed By: #### 4 [id number] #### [facility] [address] [place] [address] pH (U) 7.0 [pH] Invalid Interpretation Code 5.0-9.0 [facility] Comment on above: Performed By: #### 4 [id number] #### [facility] [address] [place] [address] Protein Ql (U) Negative Normal Negative [facility] Comment on above: Performed By: #### 4 [id number] #### [facility] [address] [place] [address] RBC Ql (U) 0-3 Normal 0-3 [facility] Comment on above: Performed By: #### 4 [id number] #### [facility] [address] [place] [address] Specific gravity (U) [Rel density] 1.023 Invalid Interpretation Code 1.005-1.030 [facility] Comment on above: Performed By: #### 4 [id number] #### [facility] [address] [place] [address] Urobilinogen (U) [Mass/Vol] Negative Normal Negative [facility] Comment on above: Performed By: #### 4 [id number] #### [facility] [address] [place] [address] WBC Auto (Urine sed) [#/Area] 6-15 Abnormal 0-5 [facility] Comment on above: Performed By: #### 4 [id number] #### [facility] [address] [place] [address] URINALYSISOrdered By: SYSTEM SYSTEM on 12-17-2024 Bilirubin Ql (U) Negative Normal Negativemg/dL [facility] UA Auto SS Clarity (U) Clear (12/17/24 12:24 PM) Normal Clear [facility] UA Auto SS Color (U) Light-Yellow 1 (12/17/24 12:24 PM) Normal Yellow [facility] UA Auto SS Comment on above: Interpretive Data: M icroscopic readings are only performed on those samples that meet specific criteria set forth by [facility]. Epithelial cells.squamous Auto (Urine sed) [...] Negativemg/dL [facility] UA Auto SS pH (U) 7.0 *NA* (12/17/24 12:24 PM) Invalid Interpretation Code 5.0 - 9.0 [facility] UA Auto SS Protein Ql (U) Negative Normal Negativemg/dL [facility] UA Auto SS RBC Ql (U) 0-3 graded/HPF Normal 0-3graded/HPF [facility] UA Auto SS Specific gravity (U) [Rel density] 1.023 *NA* (12/17/24 12:24 PM) Invalid Interpretation Code 1.005 - 1.030 [facility] UA Auto SS Urobilinogen (U) [Mass/Vol] Negative Normal Negativemg/dL [facility] UA Auto SS WBC Auto (Urine sed) [#/Area] 6-15 graded/HPF Invalid Interpretation Code 0-5graded/HPF [facility] UA Auto SS URINALYSISOrdered By: Eric Winters on 12-17-2024 UA Spec Desc Clean Catch (12/17/24 12:24 PM) Normal [facility] UA Auto SS B hCG Qualon 12-16-2024 Beta HCG ( test) Ql Negative Normal [facility] Comment on above: Performed By: #### 2 [id number] #### [facility] [address] [place] [address] BMPon 12-16-2024 Anion gap [Moles/Vol] 12 mmol/L Normal 6-16 [facility] Comment on above: Performed By: #### 2 [id number] #### [facility] [address] [place] [address] Calcium [Mass/Vol] 7.6 mg/dL Low 8.9-11.1 [facility] Comment on above: Performed By: #### 2 [id number] #### [facility] [address] [place] [address] Chloride [Moles/Vol] 101 mmol/L Normal 101-111 [facility] Comment on above: Performed By: #### 2 [id number] #### [facility] [address] [place] [address] CO2 [Moles/Vol] 27 mmol/L Normal 21-31 [facility] Comment on above: Performed By: #### 2 [id number] #### [facility] [address] [place] [address] Creatinine [Mass/Vol] 0.7 mg/dL Normal 0.5-1.3 [facility] Comment on above: Performed By: #### 2 [id number] #### [facility] [address] [place] [address] Glucose [Mass/Vol] 94 mg/dL Normal 55-199 [facility] Comment on above: Performed By: #### 2 [id number] #### [facility] [address] [place] [address] Potassium [Moles/Vol] 3.5 mmol/L Normal 3.5-5.3 [facility] Comment on above: Performed By: #### 2 [id number] #### [facility] [address] [place] [address] Sodium [Moles/Vol] 136 mmol/L Normal 135-145 [facility] Comment on above: Performed By: #### 2 [id number] #### [facility] [address] [place] [address] Urea nitrogen [Mass/Vol] 7 mg/dL Normal 5-21 [facility] Comment on above: Performed By: #### 2 580420 #### [facility] [address] [place] [address] Urea nitrogen/Creatinine [Mass ratio] 10 No Units Normal 10-20 [facility] Comment on above: Performed By: #### 2 [id number] #### [facility] [address] [place] [address] CBC w/ Auto Diffon 5 Basophils/100 WBC (Bld) 0.4 % Normal 0.0-2.0 [facility] Comment on above: Performed By: #### 2 [id number] #### [facility] [address] [place] [address] Basophils/Leukocytes Auto (Bld) [Pure # fraction] 0.0 E9/L Normal 0.0-0.2 [facility] Comment on above: Performed By: #### 2 [id number] #### [facility] [address] [place] [address] Eosinophils (Bld) [#/Vol] 0.1 E9/L Normal 0.0-0.5 [facility] Comment on above: Performed By: #### 2 [id number] #### [facility] [address] [place] [address] [place] [address] Eosinophils/100 WBC (Bld) 0.8 % Normal 0.0-8.0 [facility] Comment on above: Performed By: #### 2 [id number] #### [facility] [address] [place] [address] Erythrocyte distribution width (RBC) [Ratio] 16.2 % High 10.9-14.2 [facility] Comment on above: Performed By: #### 2 [id number] #### [facility] [address] [place] [address] Hematocrit (Bld) [Volume fraction] 29.7 % Low 34.0-46.0 [facility] Comment on above: Performed By: #### 2 [id number] #### [facility] [address] [place] [address] Hemoglobin (Bld) [Mass/Vol] 10.1 g/dL Low 12.0-16.0 [facility] Comment on above: Performed By: #### 2 650394 #### [facility] [address] [place] [address] Lymphocytes (Bld) [#/Vol] 1.3 E9/L Normal 1.0-4.0 [facility] Comment on above: Performed By: #### 2 [id number] #### [facility] [address] [place] [address] Lymphocytes/100 WBC (Bld) 15.6 % Normal 14.0-50.0 [facility] Comment on above: Performed By: #### 2 288757 #### [facility] [address] [place] [address] MCH (RBC) [Entitic mass] 29.7 pg Normal 27.0-34.0 [facility] Comment on above: Performed By: #### 2 [id number] #### [facility] [address] [place] [address] MCHC (RBC) [Mass/Vol] 33.9 g/dL Normal 31.4-36.0 [facility] Comment on above: Performed By: #### 2 [id number] #### [facility] [address] [place] [address] MCV (RBC) [Entitic vol] 87.7 fL Normal 80.0-100.0 [facility] Comment on above: Performed By: #### 2 230864 #### [facility] [address] [place] [address] Monocytes (Bld) [#/Vol] 0.6 E9/L Normal 0.2-1.0 [facility] Comment on above: Performed By: #### 2 [id number] #### [facility] [address] [place] [address] Neutrophils (Bld) [#/Vol] 6.6 E9/L Normal 2.0-7.5 [facility] Comment on above: Performed By: #### 2 784277 #### [facility] [address] [place] [address] Neutrophils/100 WBC (Bld) 75.9 % High 36.0-75.0 [facility] Comment on above: Performed By: #### 2 [id number] #### [facility] [address] [place] [address] Platelet 601.0 E9/L High 150.0-500.0 [facility] Comment on above: Performed By: #### 2 [id number] #### [facility] [address] [place] [address] Platelet mean volume (Bld) [Entitic vol] 6.6 fL Normal 6.4-10.8 [facility] Comment on above: Performed By: #### 2 778730 #### [facility] [address] [place] [address] RBC (Bld) [#/Vol] 3.4 E12/L Low 4.3-5.9 [facility] Comment on above: Performed By: #### 2 824933 #### [facility] [address] [place] [address] WBC corrected for nucl RBC Auto (Bld) [#/Vol] 8.6 E9/L Normal 4.0-11.0 Mario Alberto [facility] Comment on above: Performed By: #### 2 525334 #### Mario Alberto [facility] [address] [place] [address] CHEMISTRYOrdered By: [employer] SYSTEM on 12-16-2024 Lactic Acid Lvl 2.4 mmol/L [...] Tube Collected Plasma Yes Invalid Interpretation Code [facility] Comment on above: Performed By: #### 1 [id number] #### [facility] [address] [place] [address] HEMATOLOGYOrdered By: SYSTEM SYSTEM on 12-16-2024 Basophils/100 [...] 12-16-2024 Albumin [Mass/Vol] 2.3 g/dL Low 3.3-5.0 [facility] Comment on above: Performed By: #### 2 150993 #### [facility] [address] [place] [address] Albumin/Globulin (S) [Mass conc ratio] 0.8 Low 1.1-2.2 [facility] Comment on above: Performed By: #### 2 545019 #### [facility] [address] [place] [address] ALP [Catalytic activity/Vol] 146 Int._Unit/L High 21-98 [facility] Comment on above: Performed By: #### 2 075985 #### [facility] [address] [place] [address] ALT No additional P-5'-P [Catalytic activity/Vol] 7 Int._Unit/L Normal 6-46 [facility] Comment on above: Performed By: #### 2 [id number] #### [facility] [address] [place] [address] AST [Catalytic activity/Vol] 9 Int._Unit/L Normal 5-43 [facility] Comment on above: Performed By: #### 2 188644 #### [facility] [address] [place] [address] Bilirubin [Mass/Vol] 0.2 mg/dL Normal 0.0-1.1 [facility] Comment on above: Performed By: #### 2 975514 #### [facility] [address] [place] [address] Bilirubin.direct [Mass/Vol] 0.1 mg/dL Normal 0.0-0.4 [facility] Comment on above: Performed By: #### 2 716361 #### [facility] [address] [place] [address] Bilirubin.indirect [Mass or moles/Vol] 0.1 mg/dL Normal 0.1-0.9 [facility] Comment on above: Performed By: #### 2 741724 #### [facility] [address] [place] [address] Globulin (S) [Mass/Vol] 3.0 g/dL Normal 1.4-4.0 [facility] Comment on above: Performed By: #### 2 080934 #### [facility] [address] [place] [address] Protein [Mass/Vol] 5.3 g/dL Low 6.0-7.8 [facility] Comment on above: Performed By: #### 2 169978 #### [facility] [address] [place] [address] Lab Miscellaneous-LCon 12-16 Lab Miscellaneous COMMENT Invalid Interpretation Code [facility] Comment on above: Order Comment: autoi mmune encephalitis panel serum Result Comment: Test Ordered: [id number] Autoimmune Encephalopathy Ab Interpretation Negative BN Reference [...] approved by the Food and Drug Administration. RESIDENTIAL REMODELING SUBCONTRACTOR Type-1 (Anti-Yo) Ab Negative BN Reference Range: [...] content not included)... Performed By: #### 1 [id number] #### [facility] [address] [place] [address] Lactic Acidon 12-16-2024 Lactic Acid Lvl 2.4 mmol/L High 0.5-2.2 [facility] Comment on above: Performed By: #### 2 446876 #### [facility] [address] [place] [address] Lipase Levelon 12-16-2024 Lipase [Catalytic activity/Vol] 10 U/L Low 13-58 [facility] Comment on above: Performed By: #### 2 523202 #### [facility] [address] [place] [address] No Panel InformationOrdered By: ANGPROCESSSERVER MICROBIOLOGY on 12-16-2024 Blood Culture Charcoal No growth at 1 da y. Final to follow at 7 days. [facility] Blood Culture Charcoal No growth at 1 da y. Final to follow at 7 days. [facility] Pre-Arrival Noteon Pre-Arrival Note Pre-Arrival Note Pre-Arrival Summary Name: , maria e Current Date: 12/16/2024 21:46:17 EDT Gender: Female Date of : Age: 29 Pre-Arrival Type: EMS ETA: 12/16/2024 22:06:00 EDT Primary Care Physician: Presenting Problem: abd pain Pre-Arrival User: Eric Winters RN Referring Source: Location: [place] Completion Date/Time: 12/16/2024 21:36:00 [facility] Emergency Department Pre-Hospital Report Form Vital Signs: Pre-Hospital Report: Treatment in Route: Response to Treatment: Misc. Issues: Normal [facility] SEROLOGYOrdered By: Nikhil Bourgeois on 12-16-2024 Beta HCG ( test) Ql Negative (12/16/24 10:47 PM) Normal [facility] Man Sero UA with Cult [employer] 12-17-19 Type of Urine collection method Clean Catch Normal [facility] Comment on above: Performed By: #### 4 [id number] #### [facility] [address] [place] [address] eGFRon 12-16-2024 eGFR 120 mL/min/1.73 m2 Normal >=59 [facility] Comment on above: Performed By: #### 1 [id number] #### [facility] [address] [place] [address] ED Clinical Summaryon 2024 ED Clinical Summary ED Clinical Summary [address] [address] ED Clinical Summary Person Information Name: ROLA AGUILAR [facility] Age: 29 Years : 1995 Sex: Female Language: South African PCP: NONE, XXXX Marital Status: Single Visit Id: Visit Reason: Dizziness; Buttock [id number]-xzmd-[id number]; Abdominal pain; Anxiety; DIZZINESS, ABD PAIN Speciality: [...] 12/15/2024 16:59:29 12/15/2024 16:59:29 12/15/2024 16:59:29 ADDRESS: [address] [place] [id number] PHYS DOC NOTES: MEDICAL INFORMATION: Prescriptions Given: New Medications [id number], [address] [place], [place] [id number], [phone] lorazepam (Ativan 1 mg Tab) 1 Tablets [...] 12/18/2024 DIAGNOSIS: Anxiety; Pain syndrome, chronic Normal [facility] ED Note-Physicianon 12-16-19 ED Note-Physician ED Note-Physician [...] anxiety, # 6 tab(s), Refills(s) 0, Pharmacy: [id number], 167, cm, 12/15/24 14:57:00 EDT, Height/Length [...] made to ensure accuracy, however, inadvertently computerized sales center manager mistakes may be present. Appropriate healthcare PPE [...] right butt (more content not included)... Normal [facility] Comment on above: Result Comment: Elec tronically Signed By: Puneet Proctor PA-C\.br\Date and Time Signed: 12/15/24 17:00 EDT\.br\Electronically Co-Signed By: Elliot Macias DO\.br\Date and Time Co-Signed: 12/15/24 17:06 EDT ED Patient Summaryon 025 ED Patient Summary ED Patient Summary [place] [id number] Patient Discharge Instructions Person Information Name: ROLA AGUILAR Age: 29 Years Arrival Date: 12/15/2024 14:44:51 Discharge Diagnosis: Anxiety; Pain syndrome, chronic Primary Care Physician: NONE, XXXX Provider Information Primary Provider: Elliot Macias DO Advanced Registered Nurse Maternity:Puneet Proctor PA-C The exam and treatment you received in the Emergency Department were for an urgent problem and are not intended as complete care. It is important that you follow up with a doctor, nurse practitioner, or physician???s housekeeping assistant for ongoing care. If your symptoms [...] opioids can be used to help relieve vxhgvylj-ob-ymxtgd pain and are often prescribed following a [...] be struggling with addiction, tell your health adult care manager and ask for guidance or call [facility]???S National He (more content not included)... Normal [facility] C Urineon 12-14-2024 Bacteria identified Cx Nom [...] Locations R1: This test was performed at: [facility], [address] [place] [address], [facility]- , [place], [facility] Comment on above: Performed By: #### 2 [id number] #### [facility] [address] [place] [address] CT Abdomen/Pelvis w/ Contras ton 12-13-2024 CT [...] Aldo Ken DO Transcribed by: CLARICE Technologist: CML Normal [facility] ED Clinical Summaryon 2024 ED Clinical Summary ED Clinical Summary [place] [id number] ED Clinical Summary Person Information Name: ROLA AGUILAR [facility] Age: 29 Years : 1995 Sex: Female Language: South African PCP: NONE, XXXX Marital Status: Single Visit [...] 12/13/2024 03:18:11 12/13/2024 03:18:11 12/13/2024 03:18:11 ADDRESS: [address] [place] [phone] PHYS DOC NOTES: MEDICAL INFORMATION: Prescriptions Given: New Medications [id number], [address], [place] [id number], [phone] amoxicillin-clavulana te (Augmentin 875 mg oral tablet) 1 Tablets By Mouth every 12 hours for 10 Days. Refills: 0. Medications to Continue Taking That Have Changed [id number], [address], [place] [id number], [phone] START: oxycodone (oxyCODONE 5 mg Tab) 1 [...] 1:Abdominal pain; 2:Crohn's colitis; 3:Anal abscess Normal [facility] ED Note-Physicianon 12-14-19 ED Note-Physician ED Note-Physician Basic Information Time Seen: Lisandro Mishra Carolyn Drake 12/12/2024 20:01 Chief Complaint Has ostomy right [...] is scheduled for revision surgery at the [facility] on January 08 as well as [...] and Complexity of Problems Differential Diagnosis: [] [facility] Data External documents reviewed: [] My [...] anus. I recommended patient be transferred to [facility] and the patient refused. I discussed [...] day(s), # 20 tab(s), Refills(s) 0, Pharmacy: [facility]/pharmacy #[id number], 167.6, cm, 12/12/24 19:58:00 EDT, Height/Length [...] mL, Injection (more content not included)... Normal [facility] Comment on above: Result Comment: Elec tronically Signed By: Carolyn Mcmahon M.D.\.br\Date and Time Signed: 12/13/24 04:31 EDT ED Patient Summaryon 025 ED Patient Summary ED Patient Summary [place] [id number] Patient Discharge Instructions Person Information Name: ROLA AGUILAR Age: 29 Years Arrival Date: 12/12/2024 19:45:41 Discharge Diagnosis: 1:Abdominal pain; 2:Crohn's colitis; 3:Anal abscess Primary Care Physician: NONE, XXXX Provider Information Primary Provider: Carolyn Mcmahon M.D. Advanced Registered Nurse Maternity:None The exam and treatment you received in the Emergency Department were for an urgent problem and are not intended as complete care. It is important that you follow up with a doctor, nurse practitioner, or physician???s housekeeping assistant for ongoing care. If your symptoms [...] opioids can be used to help relieve xcfcljvn-yv-tlsvhs pain and are often prescribed following a [...] opioids abu (more content not included)... Normal [facility] BMPon 12-12-2024 Anion gap [Moles/Vol] 14 mmol/L Normal 6-16 [facility] Comment on above: Performed By: #### 2 [id number] #### [facility] [address] [place] [address] Calcium [Mass/Vol] 9.0 mg/dL Normal 8.9-11.1 [facility] Comment on above: Performed By: #### 2 882100 #### [facility] [address] [place] [address] Chloride [Moles/Vol] 102 mmol/L Normal 101-111 [facility] Comment on above: Performed By: #### 2 160597 #### [facility] [address] [place] [address] CO2 [Moles/Vol] 27 mmol/L Normal 21-31 [facility] Comment on above: Performed By: #### 2 544212 #### [facility] [address] [place] [address] Creatinine [Mass/Vol] 0.6 mg/dL Normal 0.5-1.3 [facility] Comment on above: Performed By: #### 2 073892 #### [facility] [address] [place] [address] Glucose [Mass/Vol] 118 mg/dL Normal 55-199 [facility] Comment on above: Performed By: #### 2 060360 #### [facility] [address] [place] [address] Potassium [Moles/Vol] 3.8 mmol/L Normal 3.5-5.3 [facility] Comment on above: Performed By: #### 2 107457 #### [facility] [address] [place] [address] Sodium [Moles/Vol] 139 mmol/L Normal 135-145 [facility] Comment on above: Performed By: #### 2 145823 #### [facility] [address] [place] [address] Urea nitrogen [Mass/Vol] 9 mg/dL Normal 5-21 [facility] Comment on above: Performed By: #### 2 841838 #### [facility] [address] [place] [address] Urea nitrogen/Creatinine [Mass ratio] 15 No Units Normal 10-20 [facility] Comment on above: Performed By: #### 2 727444 #### [facility] [address] [place] [address] CBC w/ Auto Diffon 5 Basophils/100 WBC (Bld) 0.3 % Normal 0.0-2.0 [facility] Comment on above: Performed By: #### 2 [id number] #### [facility] [address] [place] [address] Basophils/Leukocytes Auto (Bld) [Pure # fraction] 0.0 E9/L Normal 0.0-0.2 [facility] Comment on above: Performed By: #### 2 269026 #### [facility] [address] [place] [address] Eosinophils (Bld) [#/Vol] 0.1 E9/L Normal 0.0-0.5 [facility] Comment on above: Performed By: #### 2 667931 #### [facility] [address] [place] [address] Eosinophils/100 WBC (Bld) 1.8 % Normal 0.0-8.0 [facility] Comment on above: Performed By: #### 2 593830 #### [facility] [address] [place] [address] Erythrocyte distribution width (RBC) [Ratio] 16.7 % High 10.9-14.2 [facility] Comment on above: Performed By: #### 2 124810 #### [facility] [address] [place] [address] Hematocrit (Bld) [Volume fraction] 34.4 % Normal 34.0-46.0 [facility] Comment on above: Performed By: #### 2 013203 #### [facility] [address] [place] [address] Hemoglobin (Bld) [Mass/Vol] 11.5 g/dL Low 12.0-16.0 [facility] Comment on above: Performed By: #### 2 813360 #### [facility] [address] [place] [address] Lymphocytes (Bld) [#/Vol] 1.1 E9/L Normal 1.0-4.0 [facility] Comment on above: Performed By: #### 2 051618 #### [facility] [address] [place] [address] Lymphocytes/100 WBC (Bld) 13.4 % Low 14.0-50.0 [facility] Comment on above: Performed By: #### 2 [id number] #### [facility] [address] [place] [address] MCH (RBC) [Entitic mass] 29.3 pg Normal 27.0-34.0 [facility] Comment on above: Performed By: #### 2 401396 #### [facility] [address] [place] [address] MCHC (RBC) [Mass/Vol] 33.3 g/dL Normal 31.4-36.0 [facility] Comment on above: Performed By: #### 2 283801 #### [facility] [address] [place] [address] MCV (RBC) [Entitic vol] 88.2 fL Normal 80.0-100.0 [facility] Comment on above: Performed By: #### 2 490184 #### [facility] [address] [place] [address] Monocytes (Bld) [#/Vol] 1.0 E9/L Normal 0.2-1.0 [facility] Comment on above: Performed By: #### 2 286687 #### [facility] [address] [place] [address] Neutrophils (Bld) [#/Vol] 5.7 E9/L Normal 2.0-7.5 [facility] Comment on above: Performed By: #### 2 954696 #### [facility] [address] [place] [address] Neutrophils/100 WBC (Bld) 72.2 % Normal 36.0-75.0 [facility] Comment on above: Performed By: #### 2 591275 #### [facility] [address] [place] [address] Platelet 636.0 E9/L High 150.0-500.0 [facility] Comment on above: Performed By: #### 2 676697 #### [facility] [address] [place] [address] Platelet mean volume (Bld) [Entitic vol] 6.7 fL Normal 6.4-10.8 [facility] Comment on above: Performed By: #### 2 681000 #### [facility] [address] [place] [address] RBC (Bld) [#/Vol] 3.9 E12/L Low 4.3-5.9 [facility] Comment on above: Performed By: #### 2 129181 #### [facility] [address] [place] [address] WBC corrected for nucl RBC Auto (Bld) [#/Vol] 7.9 E9/L Normal 4.0-11.0 [facility] Comment on above: Performed By: #### 2 331581 #### [facility] [address] [place] [address] CHEMISTRYOrdered By: SYSTEM SYSTEM on 12-12-2024 Albumin [...] 31.7 s Normal 25.1 - 36.5 second(s) [facility] Comment on above: Interpretive Data: [...] the same coagulation reagent and instrumentation as [facility]. Currently there are no coagulation studies available worldwide for children to 14 days, and no normal ranges. Heparin therapeutic range (represented by Anti-Factor Xa activity of 0.2 - 0.4 U/mL) corresponds to PTT of 56.6 - 109.0 sec. INR Coag (PPP) [Relative time] 1.14 {INR} Invalid Interpretation Code [facility] Comment on above: Interpretive Data: I NR results are specifically intended to assess patients stabilized on long-term Anticoagulation therapy suggested INR s Less Intensive Anticoagulation 2.0 3.0 Conventional Range 3.0 4.5 PT Coag (PPP) [Time] 12.8 s High 9.4 - 1 2.5 second(s) [facility] Comment on above: Interpretive Data: [...] the same coagulation reagent and instrumentation as [facility]. Currently there are no coagulation studies available [...] 12-12-2024 Albumin [Mass/Vol] 2.9 g/dL Low 3.3-5.0 [facility] Comment on above: Performed By: #### 2 [id number] #### [facility] [address] [place] [address] Albumin/Globulin (S) [Mass conc ratio] 0.8 Low 1.1-2.2 [facility] Comment on above: Performed By: #### 2 [id number] #### [facility] [address] [place] [address] ALP [Catalytic activity/Vol] 161 Int._Unit/L High 21-98 [facility] Comment on above: Performed By: #### 2 960009 #### [facility] [address] [place] [address] ALT No additional P-5'-P [Catalytic activity/Vol] 9 Int._Unit/L Normal 6-46 [facility] Comment on above: Performed By: #### 2 [id number] #### [facility] [address] [place] [address] AST [Catalytic activity/Vol] 10 Int._Unit/L Normal 5-43 [facility] Comment on above: Performed By: #### 2 989054 #### [facility] [address] [place] [address] Bilirubin [Mass/Vol] 0.4 mg/dL Normal 0.0-1.1 [facility] Comment on above: Performed By: #### 2 807898 #### [facility] [address] [place] [address] Bilirubin.direct [Mass/Vol] 0.2 mg/dL Normal 0.0-0.4 [facility] Comment on above: Performed By: #### 2 222261 #### [facility] [address] [place] [address] Bilirubin.indirect [Mass or moles/Vol] 0.2 mg/dL Normal 0.1-0.9 [facility] Comment on above: Performed By: #### 2 [id number] #### [facility] [address] [place] [address] Globulin (S) [Mass/Vol] 3.7 g/dL Normal 1.4-4.0 [facility] Comment on above: Performed By: #### 2 623061 #### [facility] [address] [place] [address] Protein [Mass/Vol] 6.6 g/dL Normal 6.0-7.8 [facility] Comment on above: Performed By: #### 2 397081 #### [facility] [address] [place] [address] Laboratory - Microbiology an d Antimicrobial susceptibilityOrdered By: Loni Manley on 12-12-2024 Bacteria identified Cx Nom (U) No growth to date [facility] Lipase Levelon 12-12-2024 Lipase [Catalytic activity/Vol] 14 U/L Normal 13-58 [facility] Comment on above: Performed By: #### 2 [id number] #### [facility] [address] [place] [address] Magnesiumon 12-12-2024 Magnesium [Mass/Vol] 1.8 mg/dL Normal 1.3-2.4 [facility] Comment on above: Performed By: #### 2 [id number] #### [facility] [address] [place] [address] PT & PTTon 12-12-2024 aPTT Coag (PPP) [Time] 31.7 second(s) Normal 25.1-36.5 [facility] Comment on above: Result Comment: Para [...] the same coagulation reagent and instrumentation as [facility]. Currently there are no coagulation studies available worldwide for children to 14 days, and no normal ranges. Heparin therapeutic range (represented by Anti-Factor Xa activity of 0.2 - 0.4 U/mL) corresponds to PTT of 56.6 - 109.0 sec. Performed By: #### 1 [id number] #### [facility] [address] [place] [id number] INR Coag (PPP) [Relative time] 1.14 {INR} Invalid Interpretation Code [facility] Comment on above: Result Comment: INR results are specifically intended to assess patients stabilized on long-term Anticoagulation therapy suggested INR???s ???Less Intensive Anticoagulation??? 2.0 ??? 3.0 Conventional Range 3.0 ??? 4.5 Performed By: #### 1 [id number] #### [facility] [address] [place] [address] PT Coag (PPP) [Time] 12.8 second(s) High 9.4-12.5 [facility] Comment on above: Result Comment: 15 [...] the same coagulation reagent and instrumentation as [facility]. Currently there are no coagulation studies available worldwide for children to 14 days, and no normal ranges. Performed By: #### 1 [id number] #### [facility] [address] [place] [address] SEROLOGYOrdered By: Nikhil Bourgeois on 12-12-2024 HCG.beta subunit (U) [Moles/Vol] Negative Normal [facility] Man Sero U BetaHcg Qualon 12-12-2024 HCG.beta subunit (U) [Moles/Vol] Negative Normal [facility] Comment on above: Performed By: #### 2 [id number] #### [facility] [address] [place] [address] UA with Cult Rflxon 12-13-19 25 Bacteria Auto Ql (U) Trace Normal Trace Fish [facility] Comment on above: Performed By: #### 4 [id number] #### [facility] [address] [place] [address] Bilirubin Ql (U) Negative Normal Negative [facility] Comment on above: Performed By: #### 4 [id number] #### [facility] [address] [place] [address] Calcium oxalate crystals Computer assisted Ql (U) Present Abnormal [facility] Comment on above: Performed By: #### 4 [id number] #### [facility] [address] [place] [address] Clarity (U) Clear Normal Clear [facility] Comment on above: Performed By: #### 4 [id number] #### [facility] [address] [place] [address] Color (U) Yellow Normal Yellow [facility] Comment on above: Result Comment: Micr oscopic readings are only performed on those samples that meet specific criteria set forth by [facility]. Performed By: #### 4 [id number] #### [facility] [address] [place] [address] Epithelial cells.squamous Auto (Urine sed) [#/Area] 3-4 Invalid Interpretation Code [facility] Comment on above: Performed By: #### 4 [id number] #### [facility] [address] [place] [address] Glucose Ql (U) Negative Normal Negative [facility] Comment on above: Performed By: #### 4 [id number] #### [facility] [address] [place] [address] Hemoglobin Auto test strip (U) [Mass/Vol] Negative Normal Negative [facility] Comment on above: Performed By: #### 4 [id number] #### [facility] [address] [place] [address] Ketones Auto test strip Ql (U) Negative Normal Negative [facility] Comment on above: Performed By: #### 4 [id number] #### [facility] [address] [place] [address] Leukocyte esterase Auto test strip Ql (U) 25 Cristela/uL Normal Negative [facility] Comment on above: Performed By: #### 4 [id number] #### [facility] [address] [place] [address] Mucus Auto Ql (U) 2+ CD:[id number] Abnormal Negative F [facility] Comment on above: Performed By: #### 4 [id number] #### [facility] [address] [place] [address] Nitrite Auto test strip Ql (U) Negative Normal Negative [facility] Comment on above: Performed By: #### 4 [id number] #### [facility] [address] [place] [address] pH (U) 6.0 [pH] Invalid Interpretation Code 5.0-9.0 [facility] Comment on above: Performed By: #### 4 [id number] #### [facility] [address] [place] [address] Protein Ql (U) Trace Abnormal Negative [facility] Comment on above: Performed By: #### 4 [id number] #### [facility] [address] [place] [address] RBC Ql (U) 0-3 Normal 0-3 [facility] Comment on above: Performed By: #### 4 [id number] #### [facility] [address] [place] [address] Specific gravity (U) [Rel density] 1.026 Invalid Interpretation Code 1.005-1.030 [facility] Comment on above: Performed By: #### 4 [id number] #### [facility] [address] [place] [address] Urobilinogen (U) [Mass/Vol] Negative Normal Negative [facility] Comment on above: Performed By: #### 4 [id number] #### [facility] [address] [place] [address] WBC Auto (Urine sed) [#/Area] 6-15 Abnormal 0-5 [facility] Comment on above: Performed By: #### 4 [id number] #### [facility] [address] [place] [address] Type of Urine collection method Clean Catch Normal [facility] Comment on above: Performed By: #### 4 [id number] #### [facility] [address] [place] [address] URINALYSISOrdered By: SYSTEM SYSTEM on 12-12-2024 Bacteria Auto Ql (U) Trace /HPF Normal Trace/HPF [facility] UA Auto SS Bilirubin Ql (U) Negative Normal Negativemg/dL [facility] UA Auto SS Calcium oxalate crystals Computer assisted Ql (U) Present graded/HPF Invalid Interpretation Code [facility] UA Auto SS Clarity (U) Clear (12/12/24 8:24 PM) Normal Clear [facility] UA Auto SS Color (U) Yellow 1 (12/12/24 8:24 PM) Normal Yellow [facility] UA Auto SS Comment on above: Interpretive Data: M icroscopic readings are only performed on those samples that meet specific criteria set forth by [facility]. Epithelial cells.squamous Auto (Urine sed) [...] 2+ graded/LPF Invalid Interpretation Code Negativegraded /LPF [facility] UA Auto SS Nitrite Auto test strip Ql (U) Negative Normal Negativemg/dL [facility] UA Auto SS pH (U) 6.0 *NA* (12/12/24 8:24 PM) Invalid Interpretation Code 5.0 - 9.0 [facility] UA Auto SS Protein Ql (U) Trace mg/dL Invalid Interpretation Code Negativemg/dL [facility] UA Auto SS RBC Ql (U) 0-3 graded/HPF Normal 0-3graded/HPF [facility] UA Auto SS Specific gravity (U) [Rel density] 1.026 *NA* (12/12/24 8:24 PM) Invalid Interpretation Code 1.005 - 1.030 [facility] UA Auto SS Urobilinogen (U) [Mass/Vol] Negative Normal Negativemg/dL [facility] UA Auto SS WBC Auto (Urine sed) [#/Area] 6-15 graded/HPF Invalid Interpretation Code 0-5graded/HPF [facility] UA Auto SS URINALYSISOrdered By: Carolyn Mcmahon on 12-12-2024 UA Spec Desc Clean Catch (12/12/24 8:24 PM) Normal [facility] UA Auto SS eGFRon 12-12-2024 eGFR 124 mL/min/1.73 m2 Normal >=59 [facility] Comment on above: Performed By: #### 1 [id number] #### [facility] [address] [place] [address] ED Note-Physicianon 12-11-19 ED Note-Physician ED Note-Physician [...] she is scheduled by her surgeon at [facility] for surgery. The patient denies any [...] and Complexity of Problems Differential Diagnosis: [] [facility] Data External documents reviewed: [] My [...] COVID Antigen (more content not included)... Normal [facility] Comment on above: Result Comment: Elec tronically Signed By: Alfred Graham DO\.br\Date and Time Signed: 12/10/24 01:29 EDT B hCG Qualon 12-09-2024 Beta HCG ( test) Ql Negative Normal [facility] Comment on above: Performed By: #### 2 [id number] #### [facility] [address] [place] [address] BMPon 12-09-2024 Anion gap [Moles/Vol] 12 mmol/L Normal 6-16 [facility] Comment on above: Performed By: #### 2 [id number] #### [facility] [address] [place] [address] Calcium [Mass/Vol] 7.5 mg/dL Low 8.9-11.1 [facility] Comment on above: Performed By: #### 2 [id number] #### [facility] [address] [place] [address] Chloride [Moles/Vol] 109 mmol/L Normal 101-111 Fish [facility] Comment on above: Performed By: #### 2 [id number] #### [facility] [address] [place] [address] CO2 [Moles/Vol] 24 mmol/L Normal 21-31 [facility] Comment on above: Performed By: #### 2 [id number] #### [facility] [address] [place] [address] Creatinine [Mass/Vol] 0.5 mg/dL Normal 0.5-1.3 [facility] Comment on above: Performed By: #### 2 [id number] #### [facility] [address] [place] [address] Glucose [Mass/Vol] 88 mg/dL Normal 55-199 [facility] Comment on above: Performed By: #### 2 [id number] #### [facility] [address] [place] [address] Potassium [Moles/Vol] 3.5 mmol/L Normal 3.5-5.3 [facility] Comment on above: Performed By: #### 2 [id number] #### [facility] [address] [place] [address] Sodium [Moles/Vol] 141 mmol/L Normal 135-145 [facility] Comment on above: Performed By: #### 2 [id number] #### [facility] [address] [place] [address] Urea nitrogen [Mass/Vol] 16 mg/dL Normal 5-21 [facility] Comment on above: Performed By: #### 2 [id number] #### [facility] [address] [place] [address] Urea nitrogen/Creatinine [Mass ratio] 32 No Units High 10-20 [facility] Comment on above: Performed By: #### 2 [id number] #### [facility] [address] [place] [address] CBC w/ Auto Diffon 5 Basophils/100 WBC (Bld) 0.6 % Normal 0.0-2.0 [facility] Comment on above: Performed By: #### 2 [id number] #### [facility] [address] [place] [address] Basophils/Leukocytes Auto (Bld) [Pure # fraction] 0.1 E9/L Normal 0.0-0.2 [facility] Comment on above: Performed By: #### 2 [id number] #### [facility] [address] [place] [address] Eosinophils (Bld) [#/Vol] 0.2 E9/L Normal 0.0-0.5 [facility] Comment on above: Performed By: #### 2 [id number] #### [facility] [address] [place] [address] Eosinophils/100 WBC (Bld) 2.3 % Normal 0.0-8.0 [facility] Comment on above: Performed By: #### 2 [id number] #### [facility] [address] [place] [address] Erythrocyte distribution width (RBC) [Ratio] 17.2 % High 10.9-14.2 [facility] Comment on above: Performed By: #### 2 [id number] #### [facility] [address] [place] [address] Hematocrit (Bld) [Volume fraction] 27.9 % Low 34.0-46.0 [facility] Comment on above: Performed By: #### 2 [id number] #### [facility] [address] [place] [address] Hemoglobin (Bld) [Mass/Vol] 9.3 g/dL Low 12.0-16.0 [facility] Comment on above: Performed By: #### 2 [id number] #### [facility] [address] [place] [address] Lymphocytes (Bld) [#/Vol] 1.0 E9/L Normal 1.0-4.0 [facility] Comment on above: Performed By: #### 2 [id number] #### [facility] [address] [place] [address] Lymphocytes/100 WBC (Bld) 11.5 % Low 14.0-50.0 [facility] Comment on above: Performed By: #### 2 [id number] #### [facility] [address] [place] [address] MCH (RBC) [Entitic mass] 29.9 pg Normal 27.0-34.0 [facility] Comment on above: Performed By: #### 2 [id number] #### [facility] [address] [place] [address] MCHC (RBC) [Mass/Vol] 33.5 g/dL Normal 31.4-36.0 [facility] Comment on above: Performed By: #### 2 [id number] #### [facility] [address] [place] [address] MCV (RBC) [Entitic vol] 89.1 fL Normal 80.0-100.0 [facility] Comment on above: Performed By: #### 2 [id number] #### [facility] [address] [place] [address] Monocytes (Bld) [#/Vol] 0.8 E9/L Normal 0.2-1.0 [facility] Comment on above: Performed By: #### 2 [id number] #### [facility] [address] [place] [address] Neutrophils (Bld) [#/Vol] 6.6 E9/L Normal 2.0-7.5 [facility] Comment on above: Performed By: #### 2 [id number] #### [facility] [address] [place] [address] Neutrophils/100 WBC (Bld) 76.1 % High 36.0-75.0 [facility] Comment on above: Performed By: #### 2 [id number] #### [facility] [address] [place] [address] Platelet 536.0 E9/L High 150.0-500.0 [facility] Comment on above: Performed By: #### 2 [id number] #### [facility] [address] [place] [address] Platelet mean volume (Bld) [Entitic vol] 6.7 fL Normal 6.4-10.8 [facility] Comment on above: Performed By: #### 2 [id number] #### [facility] [address] [place] [address] RBC (Bld) [#/Vol] 3.1 E12/L Low 4.3-5.9 [facility] Comment on above: Performed By: #### 2 [id number] #### [facility] [address] [place] [address] WBC corrected for nucl RBC Auto (Bld) [#/Vol] 8.6 E9/L Normal 4.0-11.0 [facility] Comment on above: Performed By: #### 2 [id number] #### [facility] [address] [place] [address] CHEMISTRYOrdered By: SYSTEM SYSTEM on 12-09-2024 Magnesium [...] 2024 ED Clinical Summary ED Clinical Summary [place] [address] ED Clinical Summary Person Information Name: ROLA AGUILAR Elena/[facility] Age: 29 Years : 1995 Sex: Female Language: [place] PCP: NONE, XXXX Marital Status: Single Visit [...] 12/09/2024 23:05:01 12/09/2024 23:05:01 12/09/2024 23:05:01 ADDRESS: [address] [place] [phone] PHYS DOC NOTES: MEDICAL INFORMATION: Prescriptions Given: New Medications [facility]/pharmacy #[id number], [address], [place] [id number], [phone] magnesium glycinate (magnesium glycinate 100 mg oral capsule) 2 Capsules By Mouth every day. Refills: 0. Medications to Continue Taking That Have Changed [facility]/pharmacy #[id number], [address], [place] [id number], [phone] START: ondansetron (Zofran ODT 4 mg Tab-Dis) [...] EDUCATION INFORMATION: Instructions: Nausea and Vomiting, Adult, Uwtw-cl-Homn; Hypomagnesemia; Abdominal Pain, Adult, Jcsx-ar-Bwvs Follow up: With: Address: When: Brittny BLOUNT [address] [place] [id number] Business (1) In 3 days 12/12/2024 Comments: Take the magnesium. You can use the pain medication, nausea medication as prescribed as needed for pain and nausea. Please follow-up with your primary care doctor for further evaluation management. Please return to the ED for any new or worsening symptoms. With: Address: When: [place] , [place] In 3 days 12/12/2024 DIAGNOSIS: 1:Abdominal pain; 2:Nausea; 3:Diarrhea; 4:Hypomagnesemia Normal [facility] ED Note-Physicianon 12-10-19 ED Note-Physician ED Note-Physician [...] she is scheduled by her surgeon at [facility] for surgery. The patient denies any [...] and Complexity of Problems Differential Diagnosis: [] [facility] Data External documents reviewed: [] My [...] COVID Antigen (more content not included)... Normal [facility] Comment on above: Result Comment: Elec tronically Signed By: Lisandro Mishra, Carolyn Drake\.br\Date and Time Signed: 12/09/24 19:09 EDT ED Patient Summaryon 025 ED Patient Summary ED Patient Summary [address] [address] Patient Discharge Instructions Person Information Name: ROLA AGUILAR Age: 29 Years Arrival Date: 12/09/2024 17:31:57 Discharge Diagnosis: 1:Abdominal pain; 2:Nausea; 3:Diarrhea; 4:Hypomagnesemia Primary Care Physician: NONE, XXXX Provider Information Primary Provider: Carolyn Mcmahon M.D. Advanced Registered Nurse Maternity:None The exam and treatment you received in the Emergency Department were for an urgent problem and are not intended as complete care. It is important that you follow up with a doctor, nurse practitioner, or physician???s housekeeping assistant for ongoing care. If your symptoms [...] Follow-up Instructions: With: Address: When: Brittny BLOUNT [address] [place] [phone] Business (1) In 3 days 12/12/2024 Comments: Take the magnesium. You can use the pain medication, nausea medication as prescribed as needed for pain and nausea. Please follow-up with your primary care doctor for further evaluation management. Please return to the ED for any new or worsening symptoms. With: Address: When: XXXX [facility] , [place] In 3 days 12/12/2024 In the event that this physician does not participate in your insurance network, please consult with your insurance company to find a nearby participating provider. Patient Education Materials: Nausea and Vomiting, Adult, Rjog-xn-Cojb; Hypomagnesemia; Abdominal Pain, Adult, Bkgh-rd-Zizp A MESSAGE TO ALL PATIENTS REGARDING OPIOIDS PRESCRIPTION OPIOIDS: WHAT YOU NEED TO KNOW Prescription opioids can be used to help relieve kxjlhuoy-as-jehuep pain and are often prescribed following a [...] and fa (more content not included)... Normal [facility] Extra Blueon 12-09-2024 Tube Collected Plasma Yes Invalid Interpretation Code [facility] Comment on above: Performed By: #### 1 [id number] #### [facility] [address] [place] [address] HEMATOLOGYOrdered By: SYSTEM SYSTEM on 12-09-2024 Basophils/100 [...] 12-09-2024 Albumin [Mass/Vol] 2.7 g/dL Low 3.3-5.0 [facility] Comment on above: Performed By: #### 2 [id number] #### [facility] [address] [place] [address] Albumin/Globulin (S) [Mass conc ratio] 0.8 Low 1.1-2.2 [facility] Comment on above: Performed By: #### 2 [id number] #### [facility] [address] [place] [address] ALP [Catalytic activity/Vol] 109 Int._Unit/L High 21-98 [facility] Comment on above: Performed By: #### 2 [id number] #### [facility] [address] [place] [address] ALT No additional P-5'-P [Catalytic activity/Vol] 9 Int._Unit/L Normal 6-46 [facility] Comment on above: Performed By: #### 2 [id number] #### [facility] [address] [place] [address] AST [Catalytic activity/Vol] 10 Int._Unit/L Normal 5-43 [facility] Comment on above: Performed By: #### 2 [id number] #### [facility] [address] [place] [address] Bilirubin [Mass/Vol] 0.3 mg/dL Normal 0.0-1.1 [facility] Comment on above: Performed By: #### 2 [id number] #### [facility] [address] [place] [address] Bilirubin.direct [Mass/Vol] 0.0 mg/dL Normal 0.0-0.4 [facility] Comment on above: Performed By: #### 2 [id number] #### [facility] [address] [place] [address] Bilirubin.indirect [Mass or moles/Vol] 0.3 mg/dL Normal 0.1-0.9 [facility] Comment on above: Performed By: #### 2 [id number] #### [facility] [address] [place] [address] Globulin (S) [Mass/Vol] 3.4 g/dL Normal 1.4-4.0 [facility] Comment on above: Performed By: #### 2 [id number] #### [facility] [address] [place] [address] Protein [Mass/Vol] 6.1 g/dL Normal 6.0-7.8 [facility] Comment on above: Performed By: #### 2 [id number] #### [facility] [address] [place] [address] Influenza A&B Agon Influenzae A Ag Negative Normal Negative [facility] Comment on above: Performed By: #### 1 [id number] #### [facility] [address] [place] [address] Influenzae B Ag Negative Normal Negative [facility] Comment on above: Result Comment: Test sensitivity and specificity vary for age group, specimen type, antigen types, and prevalence of disease. Test results must be evaluated in conjunction with other clinical data available to the physician. Individuals who received nasally administered Influenza A vaccine may have positive test results up to 3 days after vaccination. Performed By: #### 1 [id number] #### [facility] [address] [place] [address] Lipase Levelon 12-09-2024 Lipase [Catalytic activity/Vol] 51 U/L Normal 13-58 [facility] Comment on above: Performed By: #### 2 [id number] #### [facility] [address] [place] [address] MICRO OTHER TESTSOrdered By: Rimma Ray on 12-09-2024 Influenzae A Ag Negative (12/09/24 6:58 PM) Normal Negative [facility] Man Sero Influenzae B Ag Negative 2 (12/09/24 6:58 PM) Normal Negative [facility] Sero Comment on above: Interpretive Data: T [...] NEG Ctl Pass (12/09/24 6:58 PM) Normal [facility] Man Sero Rapid COV Int POS Ctl Pass (12/09/24 6:58 PM) Normal [facility] Sero SARS-CoV+SARS-CoV-2 (COVID-19) Ag IA.rapid Ql (Resp) Not Detected 4 (12/09/24 6:58 PM) Normal Not Detected [facility] Man Sero Comment on above: Interpretive Data: T he [employer] System for Rapid Detection of SARS-CoV-2 [...] 12-09-2024 Magnesium [Mass/Vol] 2.4 mg/dL Normal 1.3-2.4 [facility] Comment on above: Performed By: #### 2 [id number] #### [facility] [address] [place] [address] Magnesium [Mass/Vol] 0.7 mg/dL Abnormal 1.3-2.4 [facility] Comment on above: Result Comment: Crit ical Result Verified by Repeat Analysis Critical Result S_M.7 Called to and read back by: STEPHEN ZAFAR at: 12/09/2024 18:53:57 by:DEEDEE Performed By: #### 2 [id number] #### [facility] [address] [place] [address] Pre-Arrival Noteon Pre-Arrival Note Pre-Arrival Note Pre[facility]Arrival Summary [facility]: [facility] Current Date: 12/09/2024 17:32:37 EDT Gender: Female Date of : Age: 29 Pre-Arrival Type: EMS ETA: 12/09/2024 17:27:00 EDT Primary Care Physician: Presenting Problem: headache for 3 days Pre-Arrival User: Referring Source: Location: Completion Date/Time: 12/09/2024 17:21:00 [facility] Emergency Department Pre-Hospital Report Form Vital Signs: Pre-Hospital Report: Treatment in Route: Response to Treatment: Misc. Issues: Normal [facility] Rapid COVID Antigen ([facility])on 12-09-2024 Rapid COV Int NEG Ctl Pass Normal [facility] Comment on above: Performed By: #### 2 [id number] #### [facility] [address] [place] [address] Rapid COV Int POS Ctl Pass Normal [facility] Comment on above: Performed By: #### 2 [id number] #### [facility] [address] [place] [address] SARS-CoV+SARS-CoV-2 (COVID-19) Ag IA.rapid Ql (Resp) Not detected Normal Not Detected [facility] Comment on above: Result Comment: The [employer]??? System for Rapid Detection of SARS-CoV-2 is [...] or revoked sooner. Performed By: #### 2 [id number] #### [facility] [address] [place] [address] SEROLOGYOrdered By: Sherrell Mason on 12-09-2024 Beta HCG ( test) Ql Negative (12/09/24 6:01 PM) Normal [facility] Man Sero UA with Cult [employer]flxon 12-10-19 25 Bilirubin Ql (U) Negative Normal Negative [facility] Comment on above: Performed By: #### 4 [id number] #### [facility] [address] [place] [address] Clarity (U) Clear Normal Clear [facility] Comment on above: Performed By: #### 4 [id number] #### [facility] [address] [place] [address] Color (U) Colorless Abnormal Yellow [facility] Comment on above: Result Comment: Micr oscopic readings are only performed on those samples that meet specific criteria set forth by [facility]. Performed By: #### 4 [id number] #### [facility] [address] [place] [address] Epithelial cells.squamous Auto (Urine sed) [#/Area] 3-4 Invalid Interpretation Code [facility] Comment on above: Performed By: #### 4 [id number] #### [facility] [address] [place] [address] Glucose Ql (U) Negative Normal Negative [facility] Comment on above: Performed By: #### 4 [id number] #### [facility] [address] [place] [address] Hemoglobin Auto test strip (U) [Mass/Vol] Negative Normal Negative [facility] Comment on above: Performed By: #### 4 [id number] #### [facility] [address] [place] [address] Ketones Auto test strip Ql (U) Negative Normal Negative [facility] Comment on above: Performed By: #### 4 [id number] #### [facility] [address] [place] [address] Leukocyte esterase Auto test strip Ql (U) 25 Cristela/uL Normal Negative [facility] Comment on above: Performed By: #### 4 [id number] #### [facility] [address] [place] [address] Mucus Auto Ql (U) Negative Normal Negative [facility] Comment on above: Performed By: #### 4 [id number] #### [facility] [address] [place] [address] Nitrite Auto test strip Ql (U) Negative Normal Negative [facility] Comment on above: Performed By: #### 4 [id number] #### [facility] [address] [place] [address] pH (U) 6.5 [pH] Invalid Interpretation Code 5.0-9.0 [facility] Comment on above: Performed By: #### 4 [id number] #### [facility] [address] [place] [address] Protein Ql (U) Negative Normal Negative [facility] Comment on above: Performed By: #### 4 [id number] #### [facility] [address] [place] [address] RBC Ql (U) 0-3 Normal 0-3 [facility] Comment on above: Performed By: #### 4 [id number] #### [facility] [address] [place] [address] Specific gravity (U) [Rel density] 1.007 Invalid Interpretation Code 1.005-1.030 [facility] Comment on above: Performed By: #### 4 [id number] #### [facility] [address] [place] [address] Urobilinogen (U) [Mass/Vol] Negative Normal Negative [facility] Comment on above: Performed By: #### 4 [id number] #### [facility] [address] [place] [address] WBC Auto (Urine sed) [#/Area] 0-5 Normal 0-5 [facility] Comment on above: Performed By: #### 4 [id number] #### [facility] [address] [place] [address] Type of Urine collection method Clean Catch Normal [facility] Comment on above: Performed By: #### 4 [id number] #### [facility] [address] [place] [address] URINALYSISOrdered By: SYSTEM SYSTEM on 12-09-2024 Bilirubin Ql (U) Negative Normal Negativemg/dL FT UA Auto SS Clarity (U) Clear (12/09/24 7:11 PM) Normal Clear [facility] UA Auto SS Color (U) Colorless 1 *ABN* (12/09/24 7:11 PM) Invalid Interpretation Code Yellow [facility] UA Auto SS Comment on above: Interpretive Data: M icroscopic readings are only performed on those samples that meet specific criteria set forth by [facility]. Epithelial cells.squamous Auto (Urine sed) [...] Negativemg/dL [facility] UA Auto SS pH (U) 6.5 *NA* (12/09/24 7:11 PM) Invalid Interpretation Code 5.0 - 9.0 [facility] UA Auto SS Protein Ql (U) Negative Normal Negativemg/dL [facility] UA Auto SS RBC Ql (U) 0-3 graded/HPF Normal 0-3graded/HPF [facility] UA Auto SS Specific gravity (U) [Rel density] 1.007 *NA* (12/09/24 7:11 PM) Invalid Interpretation Code 1.005 - 1.030 [facility] UA Auto SS Urobilinogen (U) [Mass/Vol] Negative Normal Negativemg/dL [facility] UA Auto SS WBC Auto (Urine sed) [#/Area] 0-5 graded/HPF Normal 0-5graded/HPF [facility] UA Auto SS URINALYSISOrdered By: Carolyn Mcmahon on 12-09-2024 UA Spec Desc Clean Catch (12/09/24 7:11 PM) Normal [facility] UA Auto SS eGFRon 12-09-2024 eGFR 130 mL/min/1.73 m2 Normal >=59 [facility] Comment on above: Performed By: #### 1 [id number] #### [facility] [address] [place] [address] EEGon 12-05-2024 EEG EEG This is a routine electroencephalogram performed on a 29-year-old female using standard 10/20 lead placement and a Hello[employer] system. All data were obtained digitally and [...] recommended. Jeff Marinelli M.D. ca Dictated: 11/23/2024 [id number] Typed: 11/24/2024 Normal [facility] Comment on above: Result Comment: Elec tronically Signed By: Thuy GILES, Jeff\.br\Date and Time Signed: 12/05/24 09:14 EDT EEG EEG This is a routine electroencephalogram performed on a 29-year-old female using standard 10/20 lead placement and a [employer] system. All data were obtained digitally and [...] is recommended. Jeff Marinelli M.D. ca Dictated: 11/25/2024 [id number] Typed: 11/25/2024 [facility] Comment on above: Result Comment: Elec tronically Signed By: Thuy GILES, Alonzo.br\Date and Time Signed: 12/05/24 09:14 EDT CNOVon 12-04-2024 CNOV Office Visit (COFHAM ) ROLA AGUILAR ([id number]) 1995 F Date Time Provider Department 12/04/24 10:30 AM SHAQ THAKKAR [facility] During your visit today, we recorded [...] NT Anorectal: External exam reveals: see below Executive Asst present: yes The sensitive examination was discussed with the Patient or Patient's Authorized Cardiovascular Disease Specialist. As applicable, any other physician, advance practice provider, medical student, or other health professional student that will be observing or involved in the sensitive examination for educational or training purposes was discussed with the Patient or Authorized Cardiovascular Disease Specialist. The Patient or Authorized Cardiovascular Disease Specialist has agreed to proceed with the [...] Diagnoses:Anal f (more content not included)... Normal [facility] SPINAL FLUIDon 11-26-2024 SPINAL FLUID CULTURE Microbiology [...] Locations R1: This [facility] performed at: [facility], [address] [place] [address], [id number]- , [place], [facility] Original [facility]ing Provider: [facility] Coding Queryon 11-26-2024 Coding Query Coding Query From: Caro Gross RN To: Quinn Rodriguez III, DO; Sent: 11/25/2024 15:19:33 EST ! Subject: Coding Query Due Date/Time: 11/26/2024 15:19:00 EST Caller Name: ROLA AGUILAR; Caller Number: Vidal , Richard Documentation per a integrity consultant in the medical record indicates this patient has been diagnosed as having: immunosuppression The following is also documented in the medical record: 11/24 Neuro- Unclear as to why she would have new onset seizures. She is on vedolizumab from the Crohn's and due to immunosuppression, TOE LASTER infection was initially my concern but her CSF has 0 total nucleated cells and PCR was negative. Still need to assess brain parenchyma with contrast-enhanced MR imaging. Need to rule out PML and PRES, among others. Based on your medical judgment of the documented diagnoses by the integrity consultant, do you agree with the diagnosis? [___]Yes, I agree with the diagnosis documented by the integrity consultant. [___]No, I do not agree with the diagnosis documented by the integrity consultant. Reason: [___]Other: In responding to this request, please exercise your independent professional judgement. The fact that a question is asked does not imply that any particular answer is desired or expected. Thank you!caro [phone] Yes, I agree with the diagnosis documented by the integrity consultant. From: Quinn Rodriguez III, DO To: Caro Gross RN; Sent: 11/26/2024 07:22:59 EST Subject: RE: Coding Query Caller Name: ROLA AGUILAR Sj; Caller Number: Vidal , M Normal [facility] General Message Officeon [facility] Message Office General Message Office --- --- --- --- --- --- --- --- --- From: Anastasia Thompson To: PEDRO LUIS AGUILARELOISA Ward Sent: 11/26/24 02:30:51 AM EST Subject: Discharge Summary Ready to View A summary regarding your recent visit is available in the Documents section of your health record. Normal [facility] Lab Miscellaneous-LCon 11-26 Lab Miscellaneous COMMENT Invalid Interpretation Code [facility] Comment on above: Order Comment: CSF Result Comment: Test Ordered: [id number] Anti-NMDAR, Spinal Fluid NMDAR Antibody, Cell-based IFA Negative BN Reference Range: Negative This test was developed and its performance characteristics determined by [employer] It has not been cleared or approved by the Food and Drug Administration. Performed at: [address] [id number] PhD Samanta Nina Performed By: #### 1 [id number] #### [facility] [address] [place] [address] CBC w/ Auto Diffon 5 Basophils/100 WBC (Bld) 0.3 % Normal 0.0-2.0 [facility] Comment on above: Performed By: #### 2 [id number] #### [facility] [address] [place] [address] Basophils/Leukocytes Auto (Bld) [Pure # fraction] 0.0 E9/L Normal 0.0-0.2 [facility] Comment on above: Performed By: #### 2 [id number] #### [facility] [address] [place] [address] Eosinophils (Bld) [#/Vol] 0.2 E9/L Normal 0.0-0.5 [facility] Comment on above: Performed By: #### 2 [id number] #### [facility] [address] [place] [address] Eosinophils/100 WBC (Bld) 2.0 % Normal 0.0-8.0 [facility] Comment on above: Performed By: #### 2 [id number] #### [facility] [address] [place] [address] Erythrocyte distribution width (RBC) [Ratio] 18.3 % High 10.9-14.2 [facility] Comment on above: Performed By: #### 2 [id number] #### [facility] [address] [place] [address] Hematocrit (Bld) [Volume fraction] 30.5 % Low 34.0-46.0 [facility] Comment on above: Performed By: #### 2 [id number] #### [facility] [address] [place] [address] Hemoglobin (Bld) [Mass/Vol] 10.1 g/dL Low 12.0-16.0 [facility] Comment on above: Performed By: #### 2 [id number] #### [facility] [address] [place] [address] Lymphocytes (Bld) [#/Vol] 0.8 E9/L Low 1.0-4.0 [facility] Comment on above: Performed By: #### 2 [id number] #### [facility] [address] [place] [address] Lymphocytes/100 WBC (Bld) 9.6 % Low 14.0-50.0 [facility] Comment on above: Performed By: #### 2 [id number] #### [facility] [address] [place] [address] MCH (RBC) [Entitic mass] 29.2 pg Normal 27.0-34.0 [facility] Comment on above: Performed By: #### 2 [id number] #### [facility] [address] [place] [address] MCHC (RBC) [Mass/Vol] 33.2 g/dL Normal 31.4-36.0 [facility] Comment on above: Performed By: #### 2 [id number] #### [facility] [address] [place] [address] MCV (RBC) [Entitic vol] 87.8 fL Normal 80.0-100.0 [facility] Comment on above: Performed By: #### 2 [id number] #### [facility] [address] [place] [address] Monocytes (Bld) [#/Vol] 0.5 E9/L Normal 0.2-1.0 [facility] Comment on above: Performed By: #### 2 [id number] #### [facility] [address] [place] [address] Neutrophils (Bld) [#/Vol] 6.7 E9/L Normal 2.0-7.5 [facility] Comment on above: Performed By: #### 2 [id number] #### [facility] [address] [place] [address] Neutrophils/100 WBC (Bld) 82.2 % High 36.0-75.0 [facility] Comment on above: Performed By: #### 2 [id number] #### [facility] [address] [place] [address] Platelet mean volume (Bld) [Entitic vol] 6.7 fL Normal 6.4-10.8 [facility] Comment on above: Performed By: #### 2 [id number] #### [facility] [address] [place] [address] Platelets (Bld) [#/Vol] 375.0 E9/L Normal 150.0-500.0 [facility] Comment on above: Performed By: #### 2 [id number] #### [facility] [address] [place] [address] RBC (Bld) [#/Vol] 3.5 E12/L Low 4.3-5.9 [facility] Comment on above: Performed By: #### 2 [id number] #### [facility] [address] [place] [address] WBC corrected for nucl RBC Auto (Bld) [#/Vol] 8.2 E9/L Normal 4.0-11.0 [facility] Comment on above: Performed By: #### 2 [id number] #### [facility] [address] [place] [address] CHEMISTRYOrdered By: SYSTEM SYSTEM on 11-25-2024 Albumin [...] 11-25-2024 Albumin [Mass/Vol] 2.4 g/dL Low 3.3-5.0 [facility] Comment on above: Performed By: #### 2 [id number] #### [facility] [address] [place] [address] Albumin/Globulin (S) [Mass conc ratio] 0.8 Low 1.1-2.2 [facility] Comment on above: Performed By: #### 2 [id number] #### [facility] [address] [place] [address] ALP [Catalytic activity/Vol] 113 Int._Unit/L High 21-98 [facility] Comment on above: Performed By: #### 2 [id number] #### [facility] [address] [place] [address] ALT No additional P-5'-P [Catalytic activity/Vol] 16 Int._Unit/L Normal 6-46 [facility] Comment on above: Performed By: #### 2 [id number] #### [facility] [address] [place] [address] Anion gap [Moles/Vol] 11 mmol/L Normal 6-16 [facility] Comment on above: Performed By: #### 2 [id number] #### [facility] [address] [place] [address] AST [Catalytic activity/Vol] 13 Int._Unit/L Normal 5-43 [facility] Comment on above: Performed By: #### 2 210375 #### [facility] [address] [place] [address] Bilirubin [Mass/Vol] 0.5 mg/dL Normal 0.0-1.1 [facility] Comment on above: Performed By: #### 2 [id number] #### [facility] [address] [place] [address] Calcium [Mass/Vol] 7.3 mg/dL Low 8.9-11.1 [facility] Comment on above: Performed By: #### 2 145503 #### [facility] [address] [place] [address] Chloride [Moles/Vol] 110 mmol/L Normal 101-111 [facility] Comment on above: Performed By: #### 2 [id number] #### [facility] [address] [place] [address] CO2 [Moles/Vol] 20 mmol/L Low 21-31 [facility] Comment on above: Performed By: #### 2 [id number] #### [facility] [address] [place] [address] Creatinine [Mass/Vol] 0.6 mg/dL Normal 0.5-1.3 [facility] Comment on above: Performed By: #### 2 [id number] #### [facility] [address] [place] [address] Globulin (S) [Mass/Vol] 3.0 g/dL Normal 1.4-4.0 [facility] Comment on above: Performed By: #### 2 351966 #### [facility] [address] [place] [address] Glucose [Mass/Vol] 87 mg/dL Normal 55-199 [facility] Comment on above: Performed By: #### 2 [id number] #### [facility] [address] [place] [address] Potassium [Moles/Vol] 3.0 mmol/L Low 3.5-5.3 [facility] Comment on above: Performed By: #### 2 [id number] #### [facility] [address] [place] [address] Protein [Mass/Vol] 5.4 g/dL Low 6.0-7.8 [facility] Comment on above: Performed By: #### 2 258351 #### [facility] [address] [place] [address] Sodium [Moles/Vol] 138 mmol/L Normal 135-145 [facility] Comment on above: Performed By: #### 2 325132 #### [facility] [address] [place] [address] Urea nitrogen [Mass/Vol] 9 mg/dL Normal 5-21 [facility] Comment on above: Performed By: #### 2 [id number] #### [facility] [address] [place] [address] Urea nitrogen/Creatinine [Mass ratio] 15 No Units Normal 10-20 [facility] Comment on above: Performed By: #### 2 [id number] #### [facility] [address] [place] [address] Discharge Instructionson Discharge Instructions Discharge Instructions ROLA [...] to this hospital follow up appointment. 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 [address] [place] [phone] Business (1) Follow Up with XXXX NONE When: In 0 days Where: [place] Medications What How Much When Instructions Next Dose New levetiracetam (Keppra 250 mg Tab) 2 Tablets By Mouth 2 times a day Refills: 1 Pickup at [facility]/pharmacy #6173 3/5 PM New naloxone (naloxone 4 mg/ 0.1 mL nasal spray) 4 Milligram Nasal Inhalation As Directed for suspected overdose symptoms Pickup at [facility]/pharmacy #6173 New oxycodone (oxyCODONE 5 mg Cap) 1 Capsules By Mouth Every 6 hours as needed for for pain Pickup at [facility]/pharmacy #6173 3 when needed Changed busPIRone (busPIRone 10 mg [...] as nee (more content not included)... Normal [facility] Comment on above: Result Comment: Elec tronically Signed By: Omar HARTMANN, Mary Ramos\.reese\Date and Time Signed: 11/25/24 16:08 EST HEMATOLOGYOrdered [...] 11-25-2024 Inpatient Clinical Summary Inpatient Clinical Summary [address] [address] Clinical Summary Person Information: Name: ROLA AGUILAR Age: 29 Years : 1995 Sex: Female PCP: NONE, XXXX Marital Status: Single Race: White Ethnicity: Non- or Language: [place] African Visit Id: Visit Reason: Tachycardia; Altered mental status; AMS Speciality: Acuity: Enc Type: Inpatient Med Service: Medical Arrival: 11/22/2024 03:17:21 Discharge: Dispo Type: Admit to ICCU Address: [address] [place] [phone] Provider Notes: Diagnosis: 1:Acute respiratory failure with [...] With: Address: When: Jeff Marinelli MD, [facility] [place], [place] [id number] Business () 11/22 (more content not included)... Normal [facility] Inpatient Patient Summaryon 11-25-2024 Inpatient Patient Summary Inpatient Patient Summary [address] [address] Patient Discharge Instructions PERSON INFORMATION Name: ROLA AGUILAR Date of : 1995 Current Date: 11/25/2024 [...] Address: When: Jeff Marinelli MD, [facility] [address] [place] [id number] [facility] (1) 12/15/2024 1:30 PM Comments: This follow up is with Magdalene Boyle NP With: Address: When: [address] [place] [address] 12/18/2024 10:45 AM Comments: Patient needs to bring proof of insurance and photo ID to this hospital follow up appointment. With: Address: When: [facility]X [facility] [place] In the event that this physician does [...] 10 mg Tab (more content not included)... Normal [facility] Interdisciplinary Note - Gilmar e Manageron 11-25-2024 Interdisciplinary Note - Microwave Radio Technician Interdisciplinary Note - Microwave Radio Technician Patient is awake and alert in bed, no family present. Previously rounded with Dr. Rodriguez and aware of plan to DC home today. Pt lives with boyfriend and mom will transport at DC. Pt is aware now set up with [facility], and aware appt scheduled and will be on DC paperwork. Ptremains agreeable to plan, and declines any further concerns or DC needs. Contact information provided and white board updated. Normal [facility] Comment on above: Result Comment: Elec tronically Signed By: Laurel HARTMANN, Heather\.reese\Date and Time Signed: 11/25/24 12:26 EST Lab Miscellaneous-LCon 11-25 Test Code [id number] Invalid Interpretation Code [facility] Comment on above: Order Comment: autoi mmune encephalitis panel serum Performed By: #### 1 [id number] #### [facility] [address] [place] [address] Test Name autoimmune ence Invalid Interpretation Code [facility] Comment on above: Order Comment: autoi mmune encephalitis panel serum Performed By: #### 1 [id number] #### [facility] Laboratory [address] [place] [address] Reference Laboratory Testing Ordered By: Carolyn Spence on 11-25-2024 Sodium [Moles/Vol] 590256 mmol/L Invalid Interpretation Code [facility] SendOutsSS Test Name autoimmune ence Invalid Interpretation Code [facility]Out[facility] eGFRon 11-25-2024 eGFR 124 mL/min/1.73 m2 Normal >=59 [facility] Comment on above: Performed By: #### 1 [id number] #### [facility] Laboratory [address] [place] [address] CBC w/ Auto Diffon Basophils/100 WBC (Bld) 0.6 % Normal 0.0-2.0 [facility] Comment on above: Performed By: #### 2 [id number] #### [facility] Laboratory [address] [place] [address] Basophils/Leukocytes Auto (Bld) [Pure # fraction] 0.1 E9/L Normal 0.0-0.2 [facility] Comment on above: Performed By: #### 2 [id number] #### [facility] Laboratory [address] [place] [address] Eosinophils (Bld) [#/Vol] 0.1 E9/L Normal 0.0-0.5 [facility] Comment on above: Performed By: #### 2 068439 #### [facility] Laboratory [address] [place] [address] Eosinophils/100 WBC (Bld) 1.6 % Normal 0.0-8.0 [facility] Comment on above: Performed By: #### 2 339189 #### [facility] Laboratory [address] [place] [address] Erythrocyte distribution width (RBC) [Ratio] 18.8 % High 10.9-14.2 [facility] Comment on above: Performed By: #### 2 608220 #### [facility] Laboratory [address] [place] [address] Hematocrit (Bld) [Volume fraction] 28.1 % Low 34.0-46.0 [facility] Comment on above: Performed By: #### 2 020005 #### [facility] Laboratory [address] [place] [address] Hemoglobin (Bld) [Mass/Vol] 9.2 g/dL Low 12.0-16.0 [facility] Comment on above: Performed By: #### 2 315555 #### [facility] Laboratory [address] [place] [address] Lymphocytes (Bld) [#/Vol] 0.7 E9/L Low 1.0-4.0 [facility] Comment on above: Performed By: #### 2 830126 #### [facility] Laboratory [address] [place] [address] Lymphocytes/100 WBC (Bld) 8.7 % Low 14.0-50.0 [facility] Comment on above: Performed By: #### 2 976240 #### [facility] Laboratory [address] [place] [address] MCH (RBC) [Entitic mass] 28.9 pg Normal 27.0-34.0 [facility] Comment on above: Performed By: #### 2 271102 #### [facility] Laboratory [address] [place] [address] MCHC (RBC) [Mass/Vol] 32.9 g/dL Normal 31.4-36.0 [facility] Comment on above: Performed By: #### 2 219394 #### [facility] Laboratory [address] [place] [address] MCV (RBC) [Entitic vol] 87.9 fL Normal 80.0-100.0 [facility] Comment on above: Performed By: #### 2 379360 #### [facility] Laboratory [address] [place] [address] Monocytes (Bld) [#/Vol] 0.5 E9/L Normal 0.2-1.0 [facility] Comment on above: Performed By: #### 2 387130 #### [facility] Laboratory [address] [place] [address] Neutrophils (Bld) [#/Vol] 6.8 E9/L Normal 2.0-7.5 [facility] Comment on above: Performed By: #### 2 215350 #### [facility] Laboratory [address] [place] [address] Neutrophils/100 WBC (Bld) 82.8 % High 36.0-75.0 [facility] Comment on above: Performed By: #### 2 125271 #### [facility] Laboratory [address] [place] [address] Platelet 312.0 E9/L Normal 150.0-500.0 [facility] Comment on above: Performed By: #### 2 211689 #### [facility] Laboratory [address] [place] [address] Platelet mean volume (Bld) [Entitic vol] 6.7 fL Normal 6.4-10.8 [facility] Comment on above: Performed By: #### 2 602540 #### [facility] Laboratory [address] [place] [address] RBC (Bld) [#/Vol] 3.2 E12/L Low 4.3-5.9 [facility] Comment on above: Performed By: #### 2 769503 #### [facility] Laboratory [address] [place] [address] WBC corrected for nucl RBC Auto (Bld) [#/Vol] 8.2 E9/L Normal 4.0-11.0 [facility] Comment on above: Performed By: #### 2 956802 #### [facility] Laboratory [address] [place] [address] CHEMISTRYOrdered By: SYSTEM SYSTEM on 11-24-2024 Albumin [...] 76 mg/dL Normal 55 - 99 mg/dL [facility] POC Subsection Comment on above: Result Comment: Dilma sandoval Meter POC Device SN [id number] Invalid Interpretation Code [facility] POC Subsection POC Username GURJIT DEGROOT Invalid Interpretation Code [facility] POC Subsection Sodium [Moles/Vol] 953148094 mmol/L Invalid Interpretation Code [facility] POC Subsection CMPon 11-24-2024 Albumin [Mass/Vol] 2.2 g/dL Low 3.3-5.0 [facility] Comment on above: Performed By: #### 2 951692 #### [facility] Laboratory [address] [place] [address] Albumin/Globulin (S) [Mass conc ratio] 0.7 Low 1.1-2.2 [facility] Comment on above: Performed By: #### 2 848488 #### [facility] Laboratory [address] [place] [address] ALP [Catalytic activity/Vol] 101 Int._Unit/L High 21-98 [facility] Comment on above: Performed By: #### 2 364954 #### [facility] Laboratory [address] [place] [address] ALT No additional P-5'-P [Catalytic activity/Vol] 17 Int._Unit/L Normal 6-46 [facility] Comment on above: Performed By: #### 2 612831 #### [facility] Laboratory [address] [place] [address] Anion gap [Moles/Vol] 9 mmol/L Normal 6-16 [facility] Comment on above: Performed By: #### 2 208639 #### [facility] Laboratory [address] [place] [address] AST [Catalytic activity/Vol] 15 Int._Unit/L Normal 5-43 [facility] Comment on above: Performed By: #### 2 590614 #### [facility] Laboratory [address] [place] [address] Bilirubin [Mass/Vol] 0.5 mg/dL Normal 0.0-1.1 [facility] Comment on above: Performed By: #### 2 872606 #### [facility] Laboratory [address] [place] [address] Calcium [Mass/Vol] 7.6 mg/dL Low 8.9-11.1 [facility] Comment on above: Performed By: #### 2 271288 #### [facility] Laboratory [address] [place] [address] Chloride [Moles/Vol] 116 mmol/L High 101-111 [facility] Comment on above: Performed By: #### 2 648725 #### [facility] Laboratory [address] [place] [address] CO2 [Moles/Vol] 18 mmol/L Low 21-31 [facility] Comment on above: Performed By: #### 2 214594 #### [facility] Laboratory [address] [place] [address] Creatinine [Mass/Vol] 0.8 mg/dL Normal 0.5-1.3 [facility] Comment on above: Performed By: #### 2 803043 #### [facility] Laboratory [address] [place] [address] Globulin (S) [Mass/Vol] 3.1 g/dL Normal 1.4-4.0 [facility] Comment on above: Performed By: #### 2 189989 #### [facility] Laboratory [address] [place] [address] Glucose [Mass/Vol] 77 mg/dL Normal 55-199 [facility] Comment on above: Performed By: #### 2 482283 #### [facility] Laboratory [address] [place] [address] Potassium [Moles/Vol] 3.2 mmol/L Low 3.5-5.3 [facility] Comment on above: Performed By: #### 2 283470 #### [facility] Laboratory [address] [place] [address] Protein [Mass/Vol] 5.3 g/dL Low 6.0-7.8 [facility] Comment on above: Performed By: #### 2 656113 #### [facility] Laboratory [address] [place] [address] Sodium [Moles/Vol] 140 mmol/L Normal 135-145 [facility] Comment on above: Performed By: #### 2 296027 #### [facility] Laboratory [address] [place] [address] Urea nitrogen [Mass/Vol] 9 mg/dL Normal 5-21 [facility] Comment on above: Performed By: #### 2 244854 #### [facility] Laboratory [address] [place] [address] Urea nitrogen/Creatinine [Mass ratio] 11 No Units Normal 10-20 [facility] Comment on above: Performed By: #### 2 502536 #### [facility] Laboratory [address] [place] [address] Capillary Glucose POCon Glucose [Mass/Vol] 76 mg/dL Normal 55-99 [facility] Comment on above: Result Comment: Dilma jaime Meter Performed By: #### 2 [id number] #### [facility] Laboratory [address] [place] [address] HEMATOLOGYOrdered By: SYSTEM SYSTEM on 11-24-2024 Basophils/100 [...] 11-24-2024 Inpatient Clinical Summary Inpatient Clinical Summary [place] [id number] Clinical Summary Person Information: Name: ROLA AGUILAR Age: 29 Years : 1995 Sex: Female PCP: NONE, XXXX Marital Status: Single Race: White Ethnicity: Non- or Language: South African Visit Id: Visit Reason: Tachycardia; Altered mental status; AMS Speciality: Acuity: Enc Type: Inpatient Med Service: Medical Arrival: 11/22/2024 03:17:21 Discharge: [facility] Address: [address] [place] [id number] Provider Notes: Diagnosis: 1:Acute respiratory failure with [...] Referring Physician: Follow up: With: Address: When: [address] [address] 12/18/2024 10:45 AM Comments: Patient needs to bring pro (more content not included)... Normal [facility] Inpatient Patient Summaryon 11-24-2024 Inpatient Patient Summary Inpatient Patient Summary [address] [address] Patient Discharge Instructions PERSON INFORMATION Name: PRADEEP AGUILARLAWSON Ward Date of : 1995 Current Date: [...] test results: Follow up: With: Address: When: [address] [place] [address] 12/18/2024 10:45 AM Comments: Patient needs to bring proof of insurance and photo ID to this hospital follow up appointment. With: Address: When: DORITA KILLIAN JONI With: Address: When: Thuy G[place]ES, [place] [address] [place] [address] Within 2 to 4 weeks In the [...] of pred (more content not included)... Normal [facility] Interdisciplinary Note - Gilmar e Manageron 11-24-2024 Interdisciplinary Note - Microwave Radio Technician Interdisciplinary Note - Microwave Radio Technician Patient is awake and alert in bed, [...] have preference, willing to see anyone in [place]. 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 . insurance information reviewed and DME discussed. Contact information provided and white board updated.; Normal [facility] Comment on above: Result Comment: Elec [...] M.D. Transcribed by: CLARICE Technologist: LUIS CARLOS Pemberton [facility] Magnesiumon 11-24-2024 Magnesium [Mass/Vol] 1.6 mg/dL Normal 1.3-2.4 [facility] Comment on above: Performed By: #### 2 [id number] #### [facility] Laboratory [address] [place] [address] No Panel InformationOrdered By: ANGPROCESSSERVER MICROBIOLOGY on 11-24-2024 Blood Culture Charcoal No growth at 1 da y. Final to follow at 7 days. [facility] Phosphoruson 11-24-2024 Phosphate [Mass/Vol] 3.8 mg/dL Normal 1.9-4.6 [facility] Comment on above: Performed By: #### 2 192382 #### [facility] Laboratory [address] [place] [address] Vanco Peakon 11-24-2024 Vanco Pk 39 microgram/mL Normal 20-40 [facility] Comment on above: Performed By: #### 2 255766 #### [facility] Laboratory [address] [place] [address] Vanco TroughOrdered By: AppTap SYSTEM on 11-24-2024 Vanco Tr 25 microgram/mL Abnormal 10-20 [facility] hem Comment on above: Result Comment: Crit ical Result Verified by Repeat Analysis Critical Result S_VANC_T:25 Called to and read back by: EDITH LEI at: 11/24/2024 11:59:03 by:BC Order Comment: pleas e draw 1 hour before next vanco dose Result Comment: Crit ical Result Verified by Repeat Analysis Critical Result S_VANC_T:25 Called to and read back by: EDITH LEI at: 11/24/2024 11:59:03 by:[email or web address] Performed By: #### 2 227264 #### [facility] Laboratory [address] [place] [address] eGFRon 11-24-2024 eGFR 102 mL/min/1.73 m2 Normal >=59 [facility] Comment on above: Performed By: #### 1 [id number] #### [facility] Laboratory [address] [place] [address] BMPon 11-23-2024 CO2 [Moles/Vol] 18 mmol/L Low 21-31 [facility] Comment on above: Performed By: #### 2 347776 #### [facility] Laboratory [address] [place] [address] Creatinine [Mass/Vol] 0.6 mg/dL Normal 0.5-1.3 [facility] Comment on above: Performed By: #### 2 932652 #### [facility] Laboratory [address] [place] [address] Glucose [Mass/Vol] 78 mg/dL Normal 55-199 [facility] Comment on above: Performed By: #### 2 734884 #### [facility] Laboratory [address] [place] [address] Potassium [Moles/Vol] 3.5 mmol/L Normal 3.5-5.3 [facility] Comment on above: Performed By: #### 2 751853 #### [facility] Laboratory [address] [place] [address] Sodium [Moles/Vol] 143 mmol/L Normal 135-145 [facility] Comment on above: Performed By: #### 2 712009 #### [facility] Laboratory [address] [place] [address] Urea nitrogen [Mass/Vol] 11 mg/dL Normal 5-21 [facility] Comment on above: Performed By: #### 2 123516 #### [facility] Laboratory [address] [place] [address] Urea nitrogen/Creatinine [Mass ratio] 18 No Units Normal 10-20 [facility] Comment on above: Performed By: #### 2 592361 #### [facility] Laboratory [address] [place] [address] Anion gap [Moles/Vol] 8 mmol/L Normal 6-16 [facility] Comment on above: Performed By: #### 2 326107 #### [facility] Laboratory [address] [place] [address] Calcium [Mass/Vol] 7.1 mg/dL Low 8.9-11.1 [facility] Comment on above: Result Comment: Crit ical Result S_CA.1 Called to and read back by: TRIXIE BIRMINGHAM at: 11/23/2024 07:06:03 by:[id number] Performed By: #### 2 567796 #### [facility] Laboratory [address] [place] [address] Chloride [Moles/Vol] 121 mmol/L Abnormal 101-111 [facility] Comment on above: Result Comment: Crit ical Result Verified by Repeat Analysis Critical Result S_CL:121 Called to and read back by: TRIXIE BIRMINGHAM at: 11/23/2024 07:06:03 by:[id number] Performed By: #### 2 956252 #### [facility] Laboratory [address] [place] [address] CBC w/ Auto Diffon 5 Basophils/100 WBC (Bld) 0.2 % Normal 0.0-2.0 [facility] Comment on above: Performed By: #### 2 119564 #### [facility] Laboratory [address] [place] [address] Basophils/Leukocytes Auto (Bld) [Pure # fraction] 0.0 E9/L Normal 0.0-0.2 [facility] Comment on above: Performed By: #### 2 599037 #### [facility] Laboratory [address] [place] [address] Eosinophils (Bld) [#/Vol] 0.1 E9/L Normal 0.0-0.5 [facility] Comment on above: Performed By: #### 2 106376 #### [facility] Laboratory [address] [place] [address] Eosinophils/100 WBC (Bld) 0.6 % Normal 0.0-8.0 [facility] Comment on above: Performed By: #### 2 482903 #### [facility] Laboratory [address] [place] [address] Erythrocyte distribution width (RBC) [Ratio] 19.0 % High 10.9-14.2 [facility] Comment on above: Performed By: #### 2 778945 #### [facility] [address] [place] [address] Hematocrit (Bld) [Volume fraction] 24.7 % Low 34.0-46.0 [facility] Comment on above: Performed By: #### 2 955525 #### [facility] Laboratory [address] [place] [address] Hemoglobin (Bld) [Mass/Vol] 8.0 g/dL Low 12.0-16.0 [facility] Comment on above: Performed By: #### 2 164590 #### [facility] [address] [place] [address] Lymphocytes (Bld) [#/Vol] 0.6 E9/L Low 1.0-4.0 [facility] Comment on above: Performed By: #### 2 815684 #### [facility] [address] [place] [address] Lymphocytes/100 WBC (Bld) 7.0 % Low 14.0-50.0 [facility] Comment on above: Performed By: #### 2 421215 #### [facility] [address] [place] [address] MCH (RBC) [Entitic mass] 28.8 pg Normal 27.0-34.0 [facility] Comment on above: Performed By: #### 2 371323 #### [facility] Laboratory [address] [place] [address] MCHC (RBC) [Mass/Vol] 32.4 g/dL Normal 31.4-36.0 [facility] Comment on above: Performed By: #### 2 694725 #### [facility] [address] [place] [address] MCV (RBC) [Entitic vol] 88.9 fL Normal 80.0-100.0 [facility] Comment on above: Performed By: #### 2 951710 #### [facility] Laboratory [address] [place] [address] Monocytes (Bld) [#/Vol] 0.6 E9/L Normal 0.2-1.0 [facility] Comment on above: Performed By: #### 2 614080 #### [facility] Laboratory [address] [place] [address] Neutrophils (Bld) [#/Vol] 6.9 E9/L Normal 2.0-7.5 [facility] Comment on above: Performed By: #### 2 982356 #### [facility] Laboratory [address] [place] [address] Neutrophils/100 WBC (Bld) 84.7 % High 36.0-75.0 [facility] Comment on above: Performed By: #### 2 667741 #### [facility] Laboratory [address] [place] [address] Platelet mean volume (Bld) [Entitic vol] 6.6 fL Normal 6.4-10.8 [facility] Comment on above: Performed By: #### 2 340098 #### [facility] Laboratory [address] [place] [address] Platelets (Bld) [#/Vol] 298.0 E9/L Normal 150.0-500.0 [facility] Comment on above: Performed By: #### 2 873152 #### [facility] Laboratory [address] [place] [address] RBC (Bld) [#/Vol] 2.8 E12/L Low 4.3-5.9 [facility] Comment on above: Performed By: #### 2 647579 #### [facility] Laboratory [address] [place] [address] WBC corrected for nucl RBC Auto (Bld) [#/Vol] 8.1 E9/L Normal 4.0-11.0 [facility] Comment on above: Performed By: #### 2 582003 #### [facility] Laboratory [address] [place] [address] CHEMISTRYOrdered By: Lab ROP User on 11-23-2024 Glucose [Mass/Vol] 71 mg/dL Normal 55 - 99 mg/dL FTM C POC Subsection Comment on above: Result Comment: Dilma jaime Meter POC Device SN [id number] Invalid Interpretation Code [facility] POC Subsection POC Username JANIA ERNST Invalid Interpretation Code [facility] POC Subsection Sodium [Moles/Vol] 258077040 mmol/L Invalid Interpretation Code [facility] POC Subsection Glucose [Mass/Vol] 106 mg/dL High 55 - 99 mg/dL FTM C POC Subsection Comment on above: Result Comment: Dilma jaime Meter POC Device SN [id number] Invalid Interpretation Code [facility] POC Subsection POC Usernamphilipp JANIA ERNST Invalid Interpretation Code [facility] POC Subsection Sodium [Moles/Vol] 347455108 mmol/L Invalid Interpretation Code [facility] POC Subsection [...] back by: TRIXIE BIRMINGHAM at: 11/23/2024 07:06:03 by:[id number] Chloride [Moles/Vol] 121 mmol/L Invalid Interpretation Code 101 - 111 mmol/L [facility] Comment on above: Result Comment: Crit ical Result Verified by Repeat Analysis Critical Result S_CL:121 Called to and read back by: TRIXIE BIRMINGHAM at: 11/23/2024 07:06:03 by:[id number] CO2 [Moles/Vol] 18 mmol/L Low 21 - [...] Cell Counton 11-23-2024 Clarity (CSF) CLEAR Normal [facility] Comment on above: Order Comment: tube 3 Performed By: #### 2 754629 #### [facility] Laboratory [address] [place] [address] Color (CSF) Colorless Normal [facility] Comment on above: Order Comment: tube 3 Performed By: #### 2 504709 #### [facility] Laboratory [address] [place] [address] RBC Auto (CSF) [#/Vol] 1 cells/mcL High <=[address] [facility] Comment on above: Order Comment: tube 3 Performed By: #### 2 521980 #### [facility] Laboratory [address] [place] [address] TNC CSF 0 cells/mcL Normal 0-5 [facility] Comment on above: Order Comment: tube 3 Result Comment: TNC: Total Nucleated Cells include WBC's and other cells present, (eg, mesothelial cells and other lining cells) Performed By: #### 2 065084 #### [facility] Laboratory [address] [place] [address] Tube Num CSF 3 Invalid Interpretation Code [facility] Comment on above: Order Comment: tube 3 Performed By: #### 2 049219 #### [facility] Laboratory [address] [place] [address] Clarity (CSF) CLEAR Normal [facility] Comment on above: Order Comment: tube 1 Performed By: #### 2 816339 #### [facility] [address] [place] [address] Color (CSF) Colorless Normal [facility] Comment on above: Order Comment: tube 1 Performed By: #### 2 481621 #### [facility] Laboratory [address] [place] [address] RBC Auto (CSF) [#/Vol] 14 cells/mcL High <=0 [facility] Comment on above: Order Comment: tube 1 Performed By: #### 2 861451 #### [facility] Laboratory [address] [place] [address] TNC CSF 1 cells/mcL Normal 0-5 [facility] Comment on above: Order Comment: tube 1 Result Comment: TNC: Total Nucleated Cells include WBC's and other cells present, (eg, mesothelial cells and other lining cells) Performed By: #### 2 778779 #### [facility] Laboratory [address] [place] [address] Tube Num CSF 1 Invalid Interpretation Code [facility] Comment on above: Order Comment: tube 1 Performed By: #### 2 587090 #### [facility] Laboratory [address] [place] [address] CSF Glucoseon 11-23-2024 Glucose (CSF) [Mass/Vol] 45 mg/dL Low 46-70 [facility] Comment on above: Order Comment: tube 3 Performed By: #### 2 007976 #### [facility] Laboratory [address] [place] [address] Glucose (CSF) [Mass/Vol] 44 mg/dL Low 46-70 [facility] Comment on above: Order Comment: tube 1 Performed By: #### 2 287880 #### [facility] [address] [place] [address] CSF PCR Panelon 11-23-2024 CSF PCR Panel [...] Varicella zoster virus Not detected PERFORMED BY: [place] [address] PATHOLOGIST HOT DIMPLING MACHINE OPERATOR NISA DEVINE M.D. Normal [facility] Comment on above: Performed By: #### C PCR PANEL #### [address] CSF Proteinon 11-23-2024 Protein CSF 21.0 mg/dL Normal 14.0-45.0 [facility] Comment on above: Order Comment: tube 3 Performed By: #### 2 [id number] #### [facility] [address] [place] [address] Protein CSF 25.0 mg/dL Normal 14.0-45.0 [facility] Comment on above: Order Comment: tube 1 Performed By: #### 2 [id number] #### [facility] [address] [place] [address] Capillary Glucose POCon Glucose [Mass/Vol] 71 mg/dL Normal 55-99 [facility] Comment on above: Result Comment: Dilma jaime Meter Performed By: #### 2 [id number] #### [facility] [address] [place] [address] Glucose [Mass/Vol] 106 mg/dL High 55-99 [facility] Comment on above: Result Comment: Dilma jaime Meter Performed By: #### 2 [id number] #### [facility] [address] [place] [address] Glucose [Mass/Vol] 68 mg/dL Normal 55-99 [facility] Comment on above: Performed By: #### 2 [id number] #### [facility] [address] [place] [address] Glucose [Mass/Vol] 91 mg/dL Normal 55-99 [facility] Comment on above: Result Comment: Dilma jaime Meter Performed By: #### 2 [id number] #### [facility] [address] [place] [address] Glucose [Mass/Vol] 69 mg/dL Normal 55-99 [facility] Comment on above: Result Comment: Tanya landaverde RN/ Performed By: #### 2 [id number] #### [facility] [address] [place] [address] EEGon 11-23-2024 EEG EEG CLINICAL HISTORY: 29-year-old [...] of her seizure events were captured. Normal [facility] Comment on above: Result Comment: Elec tronically Signed By: Ted Petersen DO\.br\Date and Time Signed: 11/23/24 12:28 EST HEMATOLOGYOrdered By: hCaz Manley on 11-23-2024 Clarity (CSF) Clear (11/23/24 [...] Miscellaneous See Refr Report Invalid Interpretation Code [facility] Comment on above: Order Comment: Stat Fourdrinier Machine Tender to [facility] Performed By: #### 1 [id number] #### [facility] [address] [place] [address] Test Code Sent [address] [facility] Invalid Interpretation Code [facility] Comment on above: Order Comment: Stat Fourdrinier Machine Tender to [facility] Result Comment: test ing sent to [facility] Performed By: #### 1 [id number] #### [facility] [address] [place] [address] Test Code 951174 Invalid Interpretation Code [facility] Comment on above: Order Comment: CSF Performed By: #### 1 [id number] #### [facility] [address] [place] [address] Test Name Biofire Invalid Interpretation Code [facility] Comment on above: Order Comment: Stat Fourdrinier Machine Tender to [facility] Performed By: #### 1 [id number] #### [facility] [address] [place] [address] Test Name NMDA Invalid Interpretation Code [facility] Comment on above: Order Comment: CSF Performed By: #### 1 [id number] #### [facility] [address] [place] [address] Meningitis+Encephalitis path ogens DNA and RNA panel - Cerebral spinal fluid by CORONA wiOrdered By: Ted Petersen on 11-23-2024 Meningitis+Encephaliti s pathogens DNA and RNA panel CORONA+non-probe (CSF) Meningitis+Encephalit is pathogens DNA and RNA panel - Cerebral spinal fluid by CORONA [facility] No Panel InformationOrdered By: Marleen Muñiz on 11-23-2024 GS No WBC's seen. No organisms seen. [facility] Spinal Fluid Culture No growth at 2 days. [facility] Reference Laboratory Testing Ordered By: Corinna Cruz on 11-23-2024 Lab Miscellaneous See Refr Report Invalid Interpretation Code [facility] Reference Laboratory Testing Ordered By: Lynn Leon on 11-23-2024 Sodium [Moles/Vol] 460674 mmol/L Invalid Interpretation Code [facility] Test Code Sent to [facility] Invalid Interpretation Code [facility] Comment on above: Result Comment: test ing sent to [facility] Test Name NMDA Invalid Interpretation Code [facility] Test Name Biofire Invalid Interpretation Code [facility] TSH With T4fr Reflexon 11-23 TSH Qn 2.02 m[IU]/L Normal 0.34-5.60 [facility] Comment on above: Performed By: #### 1 [id number] #### [facility] [address] [place] [address] eGFRon 11-23-2024 eGFR 124 mL/min/1.73 m2 Normal >=59 [facility] Comment on above: Performed By: #### 1 [id number] #### [facility] [address] [place] [address] Ammoniaon 11-22-2024 Ammonia (P) [Moles/Vol] 27 mcmol Normal 11-35 [facility] Comment on above: Performed By: #### 2 [id number] #### [facility] [address] [place] [address] BB Draw & Holdon 11-22-2024 BB D&H Sample drawn for Blood Ba Normal [facility] Comment on above: Performed By: #### 1 [id number] #### [facility] [address] [place] [address] BMPon 11-22-2024 Anion gap [Moles/Vol] 10 mmol/L Normal 6-16 [facility] Comment on above: Performed By: #### 2 [id number] #### [facility] [address] [place] [address] Calcium [Mass/Vol] 7.2 mg/dL Low 8.9-11.1 [facility] Comment on above: Performed By: #### 2 [id number] #### [facility] [address] [place] [address] Chloride [Moles/Vol] 114 mmol/L High 101-111 [facility] Comment on above: Performed By: #### 2 [id number] #### [facility] [address] [place] [address] CO2 [Moles/Vol] 22 mmol/L Normal 21-31 [facility] Comment on above: Performed By: #### 2 [id number] #### [facility] [address] [place] [address] Creatinine [Mass/Vol] 0.6 mg/dL Normal 0.5-1.3 [facility] Comment on above: Performed By: #### 2 [id number] #### [facility] [address] [place] [address] Glucose [Mass/Vol] 76 mg/dL Normal 55-199 [facility] Comment on above: Performed By: #### 2 [id number] #### [facility] [address] [place] [address] Potassium [Moles/Vol] 3.0 mmol/L Low 3.5-5.3 [facility] Comment on above: Performed By: #### 2 [id number] #### [facility] [address] [place] [address] Sodium [Moles/Vol] 143 mmol/L Normal 135-145 [facility] Comment on above: Performed By: #### 2 [id number] #### [facility] [address] [place] [address] Urea nitrogen [Mass/Vol] 10 mg/dL Normal 5-21 [facility] Comment on above: Performed By: #### 2 [id number] #### [facility] [address] [place] [address] Urea nitrogen/Creatinine [Mass ratio] 17 No Units Normal 10-20 [facility] Comment on above: Performed By: #### 2 [id number] #### [facility] [address] [place] [address] Anion gap [Moles/Vol] 12 mmol/L Normal 6-16 [facility] Comment on above: Performed By: #### 2 [id number] #### [facility] [address] [place] [address] Calcium [Mass/Vol] 7.1 mg/dL Low 8.9-11.1 [facility] Comment on above: Performed By: #### 2 [id number] #### [facility] [address] [place] [address] Chloride [Moles/Vol] 110 mmol/L Normal 101-111 [facility] Comment on above: Performed By: #### 2 [id number] #### [facility] [address] [place] [address] CO2 [Moles/Vol] 23 mmol/L Normal 21-31 [facility] Comment on above: Performed By: #### 2 [id number] #### [facility] [address] [place] [address] Creatinine [Mass/Vol] 0.7 mg/dL Normal 0.5-1.3 [facility] Comment on above: Performed By: #### 2 [id number] #### [facility] [address] [place] [address] Glucose [Mass/Vol] 144 mg/dL Normal 55-199 [facility] Comment on above: Performed By: #### 2 [id number] #### [facility] [address] [place] [address] Potassium [Moles/Vol] 2.9 mmol/L Low 3.5-5.3 [facility] Comment on above: Performed By: #### 2 [id number] #### [facility] [address] [place] [address] Sodium [Moles/Vol] 142 mmol/L Normal 135-145 [facility] Comment on above: Performed By: #### 2 [id number] #### [facility] [address] [place] [address] Urea nitrogen [Mass/Vol] 15 mg/dL Normal 5-21 [facility] Comment on above: Performed By: #### 2 [id number] #### [facility] [address] [place] [address] Urea nitrogen/Creatinine [Mass ratio] 21 No Units High 10-20 [facility] Comment on above: Performed By: #### 2 [id number] #### [facility] [address] [place] [address] BhCG Quanton 11-22-2024 HCG.beta subunit Qn 1 m[IU]/mL Normal 1-3 [facility] Comment on above: Result Comment: 'F N ON < 1 - 3' ' 0.2 - 1 WEEK = 5 TO 50' ' 1 - 2 WEEKS = 50 - 500' ' 2 - 3 WEEKS = 100 - 5000' ' 3 - 4 WEEKS = 500 - 22443' ' 4 - 5 WEEKS = 1000 - 49687' ' 5 - 6 WEEKS = 93211 - 112785' ' 6 - 8 WEEKS = 60805 - 925583' ' 8 - 12 WEEKS = 73233 - 303071' Performed By: #### 2 [id number] #### [facility] [address] [place] [address] Blood Gas Art, with Lytes, Ryne angeles, [place] 11-22-2024 a/A Ratio Art 79.70 % Normal >=0.80 [facility] Comment on above: Performed By: #### 4 [id number] #### [facility] [address] [place] [address] AaDO2 Art 35.0 mmHg High 5.0-15.0 [facility] Comment on above: Performed By: #### 4 [id number] #### [facility] [address] [place] [address] ACT. Rate 24 Invalid Interpretation Code [facility] Comment on above: Performed By: #### 4 [id number] #### [facility] [address] [place] [id number] Allens Test Positive Normal [facility] Comment on above: Performed By: #### 4 [id number] #### [facility] [address] [place] [address] Base Excess Arterial 0.2 mmol/L Low >=2.8 [facility] Comment on above: Performed By: #### 4 [id number] #### [facility] [address] [place] [address] cCa2+ Art 4.38 mg/dL Low 4.40-5.30 [facility] Comment on above: Performed By: #### 4 [id number] #### [facility] [address] [place] [address] cCl- Art 112.0 mmol/L High 101.0-111.0 [facility] Comment on above: Performed By: #### 4 [id number] #### [facility] [address] [place] [address] cGlu Art 75 mg/dL Normal 55-99 [facility] Comment on above: Performed By: #### 4 [id number] #### [facility] [address] [place] [address] cK+ Art 3.0 mmol/L Low 3.5-5.3 [facility] Comment on above: Performed By: #### 4 [id number] #### [facility] [address] [place] [address] cLac Art 3.1 mmol/L High .5-2.2 [facility] Comment on above: Performed By: #### 4 [id number] #### [facility] [address] [place] [address] inspector process+ Art 146.0 mmol/L High 135.0-145.0 [facility] Comment on above: Performed By: #### 4 [id number] #### [facility] [address] [place] [address] Device Ventilator Normal [facility] Comment on above: Performed By: #### 4 [id number] #### [facility] [address] [place] [address] Drawn by LONG-TERM Invalid Interpretation Code [facility] Comment on above: Performed By: #### 4 [id number] #### [facility] [address] [place] [address] FCOHb Art 1.1 % Low 1.5-4.9 [facility] Comment on above: Result Comment: Refe rence range Nonsmoker <1.5% Smoker <5.0% Heavy Smoker <9.0% Performed By: #### 4 [id number] #### [facility] [address] [place] [address] FIO2 BG 30.0 Invalid Interpretation Code [facility] Comment on above: Performed By: #### 4 [id number] #### [facility] [address] [place] [address] FMetHb Art 0.2 % Normal 0.0-1.9 [facility] Comment on above: Performed By: #### 4 [id number] #### [facility] [address] [place] [address] FO2Hb Art 98.8 % Normal 92.0-100.0 [facility] Comment on above: Performed By: #### 4 [id number] #### [facility] [address] [place] [address] Hemoglobin (Bld) [Mass/Vol] 9.8 g/dL Low 12.0-16.0 [facility] Comment on above: Performed By: #### 4 [id number] #### [facility] [address] [place] [address] MECH. Rate 20 Invalid Interpretation Code [facility] Comment on above: Performed By: #### 4 [id number] #### [facility] [address] [place] [address] O2 Sat Art >99.2 Normal 95.0-100.0 [facility] Comment on above: Performed By: #### 4 [id number] #### [facility] [address] [place] [address] P CO2 Arterial 33.7 mmHg Low 35.0-45.0 [facility] Comment on above: Performed By: #### 4 [id number] #### [facility] [address] [place] [address] P O2 Arterial 137.0 mmHg Abnormal 80.0-100.0 [facility] Comment on above: Result Comment: Resu lts Called To SHELLI JAIMES BY MARTHA DESIR _ And Read Back For Confirmation On11/22/2024 09:13:20 EST _. Performed By: #### 4 [id number] #### [facility] [address] [place] [address] PEEP 5 Invalid Interpretation Code [facility] Comment on above: Performed By: #### 4 [id number] #### [facility] [address] [place] [address] pH Arterial 7.457 High 7.350-7.450 [facility] Comment on above: Performed By: #### 4 [id number] #### [facility] [address] [place] [address] Sample Site R Radial Normal [facility] Comment on above: Performed By: #### 4 [id number] #### [facility] [address] [place] [address] Sample Type Arterial Draw Normal [facility] Comment on above: Performed By: #### 4 [id number] #### [facility] [address] [place] [address] SET Vt 300 Invalid Interpretation Code [facility] Comment on above: Performed By: #### 4 [id number] #### [facility] [address] [place] [address] Vent Mode AC/VC Invalid Interpretation Code [facility] Comment on above: Performed By: #### 4 [id number] #### [facility] [address] [place] [address] Allens Test Not Applicable Normal [facility] Comment on above: Performed By: #### 4 [id number] #### [facility] [address] [place] [address] Drawn by lamine jacques Invalid Interpretation Code [facility] Comment on above: Performed By: #### 4 [id number] #### [facility] [address] [place] [address] FIO2 BG 50 Invalid Interpretation Code [facility] Comment on above: Performed By: #### 4 [id number] #### [facility] [address] [place] [address] pH Arterial 7.226 Abnormal 7.350-7.450 [facility] Comment on above: Result Comment: Resu lts Called To DR. Graham By Lamine Jacques11/22/2024 06:24:57 EST And Read Back For Confirmation On _. Performed By: #### 4 [id number] #### [facility] [address] [place] [address] Sample Site R Radial Normal [facility] Comment on above: Performed By: #### 4 [id number] #### [facility] [address] [place] [address] Sample Type Arterial Draw Normal [facility] Comment on above: Performed By: #### 4 [id number] #### [facility] [address] [place] [address] Allens Test Not Applicable Normal [facility] Comment on above: Performed By: #### 4 [id number] #### [facility] [address] [place] [address] Base Excess Arterial -10.3 mmol/L Low >=2.8 [facility] Comment on above: Performed By: #### 4 [id number] #### [facility] [address] [place] [address] cCa2+ Art 4.37 mg/dL Low 4.40-5.30 [facility] Comment on above: Performed By: #### 4 [id number] #### [facility] [address] [place] [address] cCl- Art 114.0 mmol/L High 101.0-111.0 [facility] Comment on above: Performed By: #### 4 [id number] #### [facility] [address] [place] [address] cGlu Art 181 mg/dL High 55-99 [facility] Comment on above: Performed By: #### 4 [id number] #### [facility] [address] [place] [address] cK+ Art 2.5 mmol/L Abnormal 3.5-5.3 [facility] Comment on above: Result Comment: Resu lts Called To Dr. Georgia Graham By Lamine Veliz RCP_ And Read Back For Confirmation On 04:03:10 EST. Performed By: #### 4 [id number] #### [facility] [address] [place] [address] cLac Art 9.6 mmol/L Abnormal .5-2.2 [facility] Comment on above: Result Comment: Resu lts Called To Dr. Georgia Graham By Lamine Veliz RCP_ And Read Back For Confirmation On 04:03:10 EST. Performed By: #### 4 [id number] #### [facility] [address] [place] [address] inspector process+ Art 149.0 mmol/L High 135.0-145.0 [facility] Comment on above: Performed By: #### 4 [id number] #### [facility] [address] [place] [address] Device Ventilator Normal [facility] Comment on above: Performed By: #### 4 [id number] #### [facility] [address] [place] [address] Drawn by Lamine Jacques Invalid Interpretation Code [facility] Comment on above: Performed By: #### 4 [id number] #### [facility] [address] [place] [address] FCOHb Art 0.9 % Low 1.5-4.9 [facility] Comment on above: Result Comment: Refe rence range Nonsmoker <1.5% Smoker <5.0% Heavy Smoker <9.0% Performed By: #### 4 [id number] #### [facility] [address] [place] [address] FIO2 BG 50 Invalid Interpretation Code [facility] Comment on above: Performed By: #### 4 [id number] #### [facility] [address] [place] [address] FMetHb Art 1.0 % Normal 0.0-1.9 [facility] Comment on above: Performed By: #### 4 [id number] #### [facility] [address] [place] [address] FO2Hb Art 98.8 % Normal 92.0-100.0 [facility] Comment on above: Performed By: #### 4 [id number] #### [facility] [address] [place] [address] MECH. Rate 12 Invalid Interpretation Code [facility] Comment on above: Performed By: #### 4 [id number] #### [facility] [address] [place] [address] Oxygen saturation in Blood 99.2 % Normal 95.0-100.0 [facility] Comment on above: Performed By: #### 4 [id number] #### [facility] [address] [place] [address] P CO2 Arterial 40.0 mmHg Normal 35.0-45.0 [facility] Comment on above: Performed By: #### 4 [id number] #### [facility] [address] [place] [address] P O2 Arterial 233.0 mmHg Abnormal 80.0-100.0 [facility] Comment on above: Result Comment: Resu lts Called To Dr. Georgia Graham By Lamine COLIN_ And Read Back For Confirmation On 04:03:10 EST. Performed By: #### 4 [id number] #### [facility] [address] [place] [address] PEEP 5 Invalid Interpretation Code [facility] Comment on above: Performed By: #### 4 [id number] #### [facility] [address] [place] [address] pH Arterial 7.226 Abnormal 7.350-7.450 [facility] Comment on above: Result Comment: Resu lts Called To Dr. Georgia Graham By Lamine COLIN_ And Read Back For Confirmation On 04:03:10 EST. Performed By: #### 4 [id number] #### [facility] [address] [place] [address] Sample Site R Radial Normal [facility] Comment on above: Performed By: #### 4 [id number] #### [facility] [address] [place] [address] Sample Type Arterial Draw Normal [facility] Comment on above: Performed By: #### 4 [id number] #### [facility] [address] [place] [address] SET Vt 300 Invalid Interpretation Code [facility] Comment on above: Performed By: #### 4 [id number] #### [facility] [address] [place] [address] Vent Mode AC Invalid Interpretation Code [facility] Comment on above: Performed By: #### 4 [id number] #### [facility] [address] [place] [address] CBC w/ Auto Diffon 5 Band form neutrophils/100 WBC (Bld) 2.0 % Normal 0.0-6.0 [facility] Comment on above: Performed By: #### 2 [id number] #### [facility] [address] [place] [address] Basophils (Bld) [#/Vol] 0.0 E9/L Normal 0.0-0.2 [facility] Comment on above: Performed By: #### 2 [id number] #### [facility] [address] [place] [address] Eosinophils (Bld) [#/Vol] 0.0 E9/L Normal 0.0-0.5 [facility] Comment on above: Performed By: #### 2 [id number] #### [facility] [address] [place] [address] Eosinophils/100 WBC (Bld) 0.0 % Normal 0.0-8.0 [facility] Comment on above: Performed By: #### 2 [id number] #### [facility] [address] [place] [address] Erythrocyte distribution width (RBC) [Ratio] 18.4 % High 10.9-14.2 [facility] Comment on above: Performed By: #### 2 [id number] #### [facility] [address] [place] [address] Hematocrit (Bld) [Volume fraction] 25.4 % Low 34.0-46.0 [facility] Comment on above: Performed By: #### 2 [id number] #### [facility] [address] [place] [address] Hemoglobin (Bld) [Mass/Vol] 8.9 g/dL Low 12.0-16.0 [facility] [facility] Comment on above: Result Comment: Hemo globin confirmed by redraw. Performed By: #### 2 [id number] #### [facility] [address] [place] [address] Lymphocytes (Bld) [#/Vol] 1.5 E9/L Normal 1.0-4.0 [facility] Comment on above: Performed By: #### 2 [id number] #### [facility] [address] [place] [address] Lymphocytes/100 WBC (Bld) 12.0 % Low 14.0-50.0 [facility] Comment on above: Performed By: #### 2 [id number] #### [facility] [address] [place] [address] MCH (RBC) [Entitic mass] 30.5 pg Normal 27.0-34.0 [facility] Comment on above: Performed By: #### 2 [id number] #### [facility] [address] [place] [address] MCHC (RBC) [Mass/Vol] 35.2 g/dL Normal 31.4-36.0 [facility] Comment on above: Performed By: #### 2 [id number] #### [facility] [address] [place] [address] MCV (RBC) [Entitic vol] 86.6 fL Normal 80.0-100.0 [facility] Comment on above: Performed By: #### 2 [id number] #### [facility] [address] [place] [address] Monocytes (Bld) [#/Vol] 0.9 E9/L Normal 0.2-1.0 [facility] Comment on above: Performed By: #### 2 [id number] #### [facility] [address] [place] [address] Neutrophils (Bld) [#/Vol] 10.4 E9/L Invalid Interpretation Code [facility] Comment on above: Performed By: #### 2 [id number] #### [facility] [address] [place] [address] Platelet 421.0 E9/L Normal 150.0-500.0 [facility] Comment on above: Performed By: #### 2 [id number] #### [facility] [address] [place] [address] Platelet mean volume (Bld) [Entitic vol] 6.4 fL Normal 6.4-10.8 [facility] Comment on above: Performed By: #### 2 [id number] #### [facility] [address] [place] [address] Polychromasia LM Ql (Bld) PRESENT Invalid Interpretation Code [facility] Comment on above: Performed By: #### 2 [id number] #### [facility] [address] [place] [address] RBC (Bld) [#/Vol] 2.9 E12/L Low 4.3-5.9 [facility] Comment on above: Performed By: #### 2 [id number] #### [facility] [address] [place] [address] RBC size Nom (Bld) SEE MORPHOLOGY Invalid Interpretation Code [facility] Comment on above: Performed By: #### 2 [id number] #### [facility] [address] [place] [address] Segmented neutrophils/100 WBC (Bld) 79.0 % High 36.0-75.0 [facility] Comment on above: Performed By: #### 2 [id number] #### [facility] [address] [place] [address] WBC corrected for nucl RBC Auto (Bld) [#/Vol] 12.8 E9/L High 4.0-11.0 [facility] Comment on above: Performed By: #### 2 [id number] #### [facility] [address] [place] [address] Band form neutrophils/100 WBC (Bld) 13.0 % High 0.0-6.0 [facility] Comment on above: Performed By: #### 2 [id number] #### [facility] [address] [place] [address] Basophils (Bld) [#/Vol] 0.0 E9/L Normal 0.0-0.2 [facility] Comment on above: Performed By: #### 2 [id number] #### [facility] [address] [place] [address] Eosinophils (Bld) [#/Vol] 0.0 E9/L Normal 0.0-0.5 [facility] Comment on above: Performed By: #### 2 [id number] #### [facility] [address] [place] [address] Eosinophils/100 WBC (Bld) 0.0 % Normal 0.0-8.0 [facility] Comment on above: Performed By: #### 2 [id number] #### [facility] [address] [place] [address] Erythrocyte distribution width (RBC) [Ratio] 19.4 % High 10.9-14.2 [facility] Comment on above: Performed By: #### 2 [id number] #### [facility] [address] [place] [address] Hematocrit (Bld) [Volume fraction] 41.0 % Normal 34.0-46.0 [facility] Comment on above: Performed By: #### 2 [id number] #### [facility] [address] [place] [address] Hemoglobin (Bld) [Mass/Vol] 12.7 g/dL Normal 12.0-16.0 [facility] Comment on above: Performed By: #### 2 [id number] #### [facility] [address] [place] [address] Lymphocytes (Bld) [#/Vol] 3.9 E9/L Normal 1.0-4.0 [facility] Comment on above: Performed By: #### 2 356213 #### [facility] [address] [place] [address] Lymphocytes/100 WBC (Bld) 15.0 % Normal 14.0-50.0 [facility] Comment on above: Performed By: #### 2 [id number] #### [facility] [address] [place] [address] MCH (RBC) [Entitic mass] 28.4 pg Normal 27.0-34.0 [facility] Comment on above: Performed By: #### 2 [id number] #### [facility] [address] [place] [address] MCHC (RBC) [Mass/Vol] 30.9 g/dL Low 31.4-36.0 [facility] Comment on above: Performed By: #### 2 [id number] #### [facility] [address] [place] [address] MCV (RBC) [Entitic vol] 92.2 fL Normal 80.0-100.0 [facility] Comment on above: Performed By: #### 2 [id number] #### [facility] [address] [place] [address] Metamyelocytes/Leukocy terry Manual cnt (Bld) [Pure # fraction] 3.0 % High 0.0-0.0 [facility] Comment on above: Performed By: #### 2 [id number] #### [facility] [address] [place] [address] Monocytes (Bld) [#/Vol] 2.1 E9/L High 0.2-1.0 [facility] Comment on above: Performed By: #### 2 430491 #### [facility] [address] [place] [address] Myelocytes/100 WBC (Bld) 4.0 % High 0.0-0.0 [facility] Comment on above: Performed By: #### 2 989292 #### [facility] [address] [place] [address] Neutrophils (Bld) [#/Vol] 18.2 E9/L Invalid Interpretation Code [facility] Comment on above: Performed By: #### 2 [id number] #### [facility] [address] [place] [address] Platelet 799.0 E9/L High 150.0-500.0 [facility] Comment on above: Performed By: #### 2 [id number] #### [facility] [address] [place] [address] Platelet mean volume (Bld) [Entitic vol] 6.7 fL Normal 6.4-10.8 [facility] Comment on above: Performed By: #### 2 179675 #### [facility] [address] [place] [address] RBC (Bld) [#/Vol] 4.5 E12/L Normal 4.3-5.9 [facility] Comment on above: Performed By: #### 2 [id number] #### [facility] [address] [place] [address] RBC size Nom (Bld) NORMAL Invalid Interpretation Code [facility] Comment on above: Performed By: #### 2 443241 #### [facility] [address] [place] [address] Segmented neutrophils/100 WBC (Bld) 57.0 % Normal 36.0-75.0 [facility] Comment on above: Performed By: #### 2 [id number] #### [facility] [address] [place] [address] WBC corrected for nucl RBC Auto (Bld) [#/Vol] 26.0 E9/L High 4.0-11.0 [facility] Comment on above: Performed By: #### 2 [id number] #### [facility] [address] [place] [address] CHEMISTRYOrdered By: SYSTEM SYSTEM on 11-22-2024 Lactic [...] back by: KAMRAN ARCE at: 11/22/2024 13:16:54 by:AG Critical Result Verified by Previous Result Interpretive Data: T he 95% CI (Confidence Interval) PPV (Positive Predictive Value) for myocardial infarction in females is 38 pg/mL, in males 51 pg/mL. The results should be used in conjunction with clinical conditions of myocardial infarction. (Access High Sensitivity Troponin I Instructions For Use, [employer], April 2018) Lactic Acid Lvl 4.4 mmol/L [...] High Sensitivity Troponin I Instructions For Use, [employer], April 2018) Albumin [Mass/Vol] 2.5 g/dL Low [...] Instructions For Use, Jannette Titi, April 2018) U Fentanyl NEGATIVE 40 (11/22/24 [...] 3 - 4 WEEKS = 500 - 48791' ' 4 - 5 WEEKS = 1000 - 86933' ' 5 - 6 WEEKS = 43003 - 013207' ' 6 - 8 WEEKS = 37346 - 283235' ' 8 - 12 WEEKS = 56694 - 621603' COAGULATIONOrdered By: Reyna Gardiner on 11-22-2024 aPTT Coag (PPP) [Time] 27.3 s Normal 25.1 - 36.5 second(s) [facility] Comment on above: Interpretive Data: [...] the same coagulation reagent and instrumentation as [facility]. Currently there are no coagulation studies available worldwide for children to 14 days, and no normal ranges. Heparin therapeutic range (represented by Anti-Factor Xa activity of 0.2 - 0.4 U/mL) corresponds to PTT of 56.6 - 109.0 sec. INR Coag (PPP) [Relative time] 0.94 {INR} Invalid Interpretation Code [facility] Comment on above: Interpretive Data: I NR results are specifically intended to assess patients stabilized on long-term Anticoagulation therapy suggested INR s Less Intensive Anticoagulation 2.0 3.0 Conventional Range 3.0 4.5 PT Coag (PPP) [Time] 10.5 s Normal 9.4 - 1 2.5 second(s) [facility] Comment on above: Interpretive Data: [...] the same coagulation reagent and instrumentation as [facility]. Currently there are no coagulation studies available [...] Graham FINAL REPORT Dictated: 11/22/2024 9:25 am Dajuan Bunn MD Signed (Electronic Signature): 11/22/2024 9:25 am Signed by: Dajuan Bunn MD Transcribed by: CLARICE Technologist: JEROD [facility] CT Head or Brain w/o Contras ton [...] Graham FINAL REPORT Dictated: 11/22/2024 9:12 am Dajuan Bunn MD Signed (Electronic Signature): 11/22/2024 9:12 am Signed by: Dajuan Bunn MD Transcribed by: CLARICE Technologist: JEROD Pemberton [facility] CT Spine Cervical w/o Contra ston 11-22-2024 CT Spine Cervical w/o Contrast Exam [...] Graham FINAL REPORT Dictated: 11/22/2024 9:18 am Dajuan Bunn MD Signed (Electronic Signature): 11/22/2024 9:18 am Signed by: Dajuan Bunn MD Transcribed by: CLARICE Technologist: JEROD Pemberton [facility] CTA Cheston 11-22-2024 CTA Chest Exam Date/Time: [...] Graham FINAL REPORT Dictated: 11/22/2024 9:22 am Dajuan Bunn MD Signed (Electronic Signature): 11/22/2024 9:22 am Signed by: Dajuan Bunn MD Transcribed by: CLARICE Technologist: JEROD Pemberton [facility] CTA Headon 11-22-2024 CTA Head Exam Date/Time: [...] Circulation: Distal vertebral arteries, basilar artery, proximal flavor maker, and visualized cerebellar vessels appear patent. No evidence for significant stenosis or aneurysm. Dural venous sinuses: Visualized dural venous sinuses are patent. Tech Comments: GFR (mL/min/1/73m2) age Contrast: Isovue 370 Contrast amount in ml's: 100.00 Report Ordering Provider: Alfred Graham FINAL REPORT Dictated: 11/22/2024 9:30 am Dajuan Bunn MD Signed (Electronic Signature): 11/22/2024 9:30 am Signed by: Dajuan Bunn MD Transcribed by: CLARICE Technologist: JEROD Normal [facility] Capillary Glucose POCon Glucose [Mass/Vol] 188 mg/dL High 55-99 [facility] Comment on above: Result Comment: Tanya landaverde RN/ Performed By: #### 2 [id number] #### [facility] [address] [place] [address] ED Clinical Summaryon 2024 ED Clinical Summary ED Clinical Summary [address] [address] ED Clinical Summary Person Information Name: ROLA AGUILAR [facility] Age: 29 Years : 1995 Sex: Female Language: [place] African PCP: NONE, XXXX Marital Status: Single Visit [...] Labs Inlab 11/22/2024 07:40:40 11/22/2024 07:40:40 ADDRESS: [address] [id number] PHYS DOC NOTES: MEDICAL INFORMATION: Prescriptions Given: [...] (Reglan) ond (more content not included)... Normal [facility] ED Note-Physicianon 11-23-19 ED Note-Physician ED Note-Physician [...] and Complexity of Problems Differential Diagnosis: [] [facility] Data External documents reviewed: [] My [...] is 3 not responding to painful stimuli. Pvmff-ic-ssyk glucose is normal, patient is given Narcan [...] Unspecified convuls (more content not included)... Normal [facility] Comment on above: Result Comment: Elec tronically Signed By: Alfred Graham DO\.reese\Date and Time Signed: 11/22/24 06:46 EST ED Patient Education Noteon 11-22-2024 ED Patient Education Note ED Patient Education Note Normal [facility] ED Patient Summaryon 025 ED Patient Summary ED Patient Summary [place] [id number] Patient Discharge Instructions Person Information Name: ROLA AGUILAR Age: 29 Years Arrival Date: 11/22/2024 03:17:21 Discharge Diagnosis: Acidosis, lactic; Acute respiratory failure with hypoxia; Generalized seizure; Hypokalemia; Hypomagnesemia Primary Care Physician: NONE, XXXX Provider Information Primary Provider: Alfred Graham DO Advanced Registered Nurse Maternity:None The exam and treatment you received in the Emergency Department were for an urgent problem and are not intended as complete care. It is important that you follow up with a doctor, nurse practitioner, or physician???s housekeeping assistant for ongoing care. If your symptoms [...] opioids can be used to help relieve xpsxadwb-tj-vgkkyg pain and are often prescribed following a [...] be struggling with addiction, tell your health adult care manager and ask for guidance or call [facility]???S National Helpline at 7-367-692-RPZZ. [employer] Source (more content not included)... Normal [facility] Ethanolon 11-22-2024 Ethanol Lvl <10 Normal <=11 [facility] Comment on above: Performed By: #### 2 [id number] #### [facility] [address] [place] [address] Extra Blueon 11-22-2024 Tube Collected Plasma Yes Invalid Interpretation Code [facility] Comment on above: Performed By: #### 1 [id number] #### [facility] [address] [place] [address] Extra [place] 11-22-2024 WB Tube Collected Yes Invalid Interpretation Code [facility] Comment on above: Performed By: #### 1 [id number] #### [facility] [address] [place] [address] WB Tube Collected Yes Invalid Interpretation Code [facility] Comment on above: Performed By: #### 1 [id number] #### [facility] [address] [place] [address] FT Blood GasesOrdered By: Judith Desir on 11-22-2024 a/A Ratio Art 79.70 % Normal >=0.80% [facility] Resp Auto SS AaDO2 Art 35.0 mm[Hg] High 5.0 - 15.0 mmHg [facility] Resp Auto SS ACT. Rate 24 1 Invalid Interpretation Code [facility] Resp Auto SS Allens Test Positive (11/22/24 8:18 AM) Normal [facility] Resp Auto SS Base Excess Arterial 0.2 mmol/L Low >=2.8mmol/L [facility] C Resp Auto SS cCa2+ Art 4.38 mg/dL Low 4.40 - 5.30 mg/dL [facility] Resp Auto SS cCl- Art 112.0 mmol/L High 101.0 - 111.0 mmol/L [facility] Resp Auto SS cGlu Art 75 mg/dL Normal 55 - 99 mg/dL [facility] Resp Auto SS cK+ Art 3.0 mmol/L Low 3.5 - 5.3 mmol/L [facility] Resp Auto SS cLac Art 3.1 mmol/L High 0.5 - 2.2 mmol/L [facility] Resp Auto SS inspector process+ Art 146.0 mmol/L High 135.0 - 145.0 mmol/L [facility] Resp Auto SS Device Ventilator (11/22/24 8:18 AM) Normal [facility] Resp Auto SS Drawn by LONG-TERM Invalid Interpretation Code [facility] Resp Auto SS FCOHb Art 1.1 % Low 1.5 - 4.9 % [facility] Resp Auto SS Comment on above: Interpretive Data: R eference range Nonsmoker <1.5% Smoker <5.0% Heavy Smoker <9.0% FMetHb Art 0.2 % Normal 0.0 - 1.9 % [facility] Resp Auto SS FO2Hb Art 98.8 % Normal 92.0 - 100.0 % [facility] Resp Auto SS Hemoglobin (Bld) [Mass/Vol] 9.8 g/dL Low 12.0 - 16.0 gm/dL [facility] Resp Auto SS P CO2 Arterial 33.7 mm[Hg] Low 35.0 - 45.0 mmHg FT Resp Auto SS P O2 Arterial 137.0 mm[Hg] Invalid Interpretation Code 80.0 - 100.0 mmHg [facility] Resp Auto SS Comment on above: Result Comment: Resu lts Called To SHELLI JAIMES BY MARTHA DESIR _ And Read Back For Confirmation On11/22/2024 09:13:20 EST _. pH (Bld) 7.457 [pH] High 7.350 - 7.450 [facility] Resp Auto SS Sample Site R Radial (11/22/24 8:18 AM) Normal [facility] Resp Auto SS Sample Type Arterial Draw (11/22/24 8:18 AM) Normal [facility] Resp Auto SS Sodium [Moles/Vol] 5 mmol/L Invalid Interpretation Code [facility] Resp Auto SS Sodium [Moles/Vol] 20 mmol/L Invalid Interpretation Code [facility] Resp Auto SS Sodium [Moles/Vol] 300 mmol/L Invalid Interpretation Code [facility] Resp Auto SS Sodium [Moles/Vol] 30.0 mmol/L Invalid Interpretation Code [facility] Resp Auto SS Vent Mode AC/VC Invalid Interpretation Code [facility] Resp Auto SS FT Blood GasesOrdered By: [...] Read Back For Confirmation On 04:03:10 EST. inspector process+ Art 149.0 mmol/L High 135.0 - 145.0 mmol/L [facility] Resp Auto SS Device Ventilator (11/22/24 3:52 AM) Normal [facility] Resp Auto SS Drawn by Lamine Jacques Invalid Interpretation Code [facility] Resp Auto [...] To Dr. Georgia Graham By Lamine Veliz P_ And Read Back For Confirmation On 04:03:10 EST. pH (Bld) 7.226 [pH] Invalid Interpretation Code 7.350 - 7.450 [facility] Resp Auto SS Comment on above: Result Comment: Resu lts Called To Dr. Georgia Graham By Lamine Veliz RCP_ And Read Back For Confirmation On 04:03:10 EST. Sample Site R Radial (11/22/24 3:52 AM) Normal [facility] Resp Auto SS Sample Type Arterial Draw (11/22/24 3:52 AM) Normal [facility] Resp Auto SS Sodium [Moles/Vol] 5 mmol/L Invalid Interpretation Code [facility] Resp Auto SS Sodium [Moles/Vol] 12 mmol/L Invalid Interpretation Code [facility] Resp Auto SS Sodium [Moles/Vol] 300 mmol/L Invalid Interpretation Code [facility] Resp Auto SS Sodium [Moles/Vol] 50 mmol/L Invalid Interpretation Code [facility] Resp Auto SS Vent Mode AC Invalid Interpretation Code [facility] Resp Auto SS HEMATOLOGYOrdered By: SYSTEM SYSTEM [...] 11-22-2024 Albumin [Mass/Vol] 2.5 g/dL Low 3.3-5.0 [facility] Comment on above: Performed By: #### 2 [id number] #### [facility] [address] [place] [address] Albumin/Globulin (S) [Mass conc ratio] 0.8 Low 1.1-2.2 [facility] Comment on above: Performed By: #### 2 [id number] #### [facility] [address] [place] [address] ALP [Catalytic activity/Vol] 109 Int._Unit/L High 21-98 [facility] Comment on above: Performed By: #### 2 [id number] #### [facility] [address] [place] [address] ALT No additional P-5'-P [Catalytic activity/Vol] 20 Int._Unit/L Normal 6-46 [facility] Comment on above: Performed By: #### 2 [id number] #### [facility] [address] [place] [address] AST [Catalytic activity/Vol] 40 Int._Unit/L Normal 5-43 [facility] Comment on above: Performed By: #### 2 [id number] #### [facility] [address] [place] [address] Bilirubin [Mass/Vol] 0.3 mg/dL Normal 0.0-1.1 [facility] Comment on above: Performed By: #### 2 [id number] #### [facility] [address] [place] [address] Bilirubin.direct [Mass/Vol] 0.1 mg/dL Normal 0.0-0.4 [facility] Comment on above: Performed By: #### 2 [id number] #### [facility] [address] [place] [address] Bilirubin.indirect [Mass or moles/Vol] 0.2 mg/dL Normal 0.1-0.9 [facility] Comment on above: Performed By: #### 2 [id number] #### [facility] [address] [place] [address] Globulin (S) [Mass/Vol] 3.2 g/dL Normal 1.4-4.0 [facility] Comment on above: Performed By: #### 2 [id number] #### [facility] [address] [place] [address] Protein [Mass/Vol] 5.7 g/dL Low 6.0-7.8 [facility] Comment on above: Performed By: #### 2 [id number] #### [facility] [address] [place] [address] Lactic Acidon 11-22-2024 Lactic Acid Lvl 2.6 mmol/L High 0.5-2.2 [facility] Comment on above: Order Comment: Order added by EKS Rule. (FT_LACTIC_ACID_REFLEX) Adds reflex Lactic Acid 4 hours after initial if result is greater than or equal to 2.0. Performed By: #### 2 [id number] #### [facility] [address] [place] [address] Lactic Acid Lvl 2.4 mmol/L High 0.5-2.2 [facility] Comment on above: Performed By: #### 2 [id number] #### [facility] [address] [place] [address] Lactic Acid Lvl 4.4 mmol/L High 0.5-2.2 [facility] Comment on above: Order Comment: Order added by EKS Rule. (FT_LACTIC_ACID_REFLEX) Adds reflex Lactic Acid 4 hours after initial if result is greater than or equal to 2.0. Performed By: #### 2 [id number] #### [facility] [address] [place] [address] Lactic Acid Lvl 4.2 mmol/L High 0.5-2.2 [facility] Comment on above: Performed By: #### 2 [id number] #### [facility] [address] [place] [address] Magnesiumon 11-22-2024 Magnesium [Mass/Vol] 1.9 mg/dL Normal 1.3-2.4 [facility] Comment on above: Performed By: #### 2 [id number] #### [facility] [address] [place] [address] Magnesium [Mass/Vol] 1.2 mg/dL Low 1.3-2.4 [facility] Comment on above: Performed By: #### 2 [id number] #### [facility] [address] [place] [address] No Panel InformationOrdered By: VICENTEPROCESSSERVER MICROBIOLOGY on 11-22-2024 Blood Culture Charcoal No growth at 3 da ys. Final to follow at 7 days. [facility] No Panel InformationOrdered By: Marleen Muñiz on 11-22-2024 Blood Culture Charcoal Staphylococcus species coagulase negative In 1 of 2 blood culture bottles drawn. Isolated from aerobic bottle Result called to Dr. Rodriguez by [facility] and results read back for confirmation on 11/23/2024 11:55:43 [facility] PT & PTTon 11-22-2024 aPTT Coag (PPP) [Time] 27.3 second(s) Normal 25.1-36.5 [facility] Comment on above: Result Comment: Para [...] the same coagulation reagent and instrumentation as [facility]. Currently there are no coagulation studies available worldwide for children to 14 days, and no normal ranges. Heparin therapeutic range (represented by Anti-Factor Xa activity of 0.2 - 0.4 U/mL) corresponds to PTT of 56.6 - 109.0 sec. Performed By: #### 1 [id number] #### [facility] [address] [place] [address] INR Coag (PPP) [Relative time] 0.94 {INR} Invalid Interpretation Code [facility] Comment on above: Result Comment: INR results are specifically intended to assess patients stabilized on long-term Anticoagulation therapy suggested INR???s ???Less Intensive Anticoagulation??? 2.0 ??? 3.0 Conventional Range 3.0 ??? 4.5 Performed By: #### 1 [id number] #### [facility] [address] [place] [address] PT Coag (PPP) [Time] 10.5 second(s) Normal 9.4-12.5 [facility] Comment on above: Result Comment: 15 [...] the same coagulation reagent and instrumentation as [facility]. Currently there are no coagulation studies available worldwide for children to 14 days, and no normal ranges. Performed By: #### 1 [id number] #### [facility] [address] [place] [address] Phosphoruson 11-22-2024 Phosphate [Mass/Vol] 1.3 mg/dL Low 1.9-4.6 [facility] Comment on above: Performed By: #### 2 [id number] #### [facility] [address] [place] [address] Pre-Arrival Noteon Pre-Arrival Note Pre-Arrival Note Pre-Arrival Summary Name: , Current Date: 11/22/2024 03:41:49 EST Gender: Female Date of : Age: 30 Pre-Arrival Type: EMS ETA: 11/22/2024 03:39:00 EST Primary Care Physician: Presenting Problem: AMS, Convulsion Pre-Arrival User: Prosper Durbin RN Referring Source: Location: [place] Completion Date/Time: 11/22/2024 03:09:00 [facility] Emergency Department Pre-Hospital Report Form Vital Signs: Pre-Hospital Report: Treatment in Route: Response to Treatment: Misc. Issues: Normal [facility] Procalcitoninon 11-22-2024 Procalcitonin .60 ng/mL High .00-.50 [facility] Comment on above: Result Comment: <0.5 ng/mL [...] to 24 hours. Performed By: #### 2 [id number] #### [facility] [address] [place] [address] Troponin 0 Hr.on 11-22-2024 Troponin HS 94.30 pg/mL Abnormal 10.10-27.10 [facility] Comment on above: Result Comment: Crit ical Result Verified by Repeat Analysis Critical Result I_TnIHS:94.3 Called to and read back by: HERBERT WADE/ER at: 11/22/2024 05:24:16 by:KARENA GARDINER The 95% CI (Confidence Interval) PPV (Positive Predictive Value) for myocardial infarction in females is 38 pg/mL, in males 51 pg/mL. The results should be used in conjunction with clinical conditions of myocardial infarction. ([employer] High Sensitivity Troponin I Instructions For Use, [employer], April 2018) Performed By: #### 1 [id number] #### [facility] [address] [place] [address] Troponin 3 Hr.on 11-22-2024 Troponin HS 499.80 pg/mL Abnormal 10.10-27.10 [facility] Comment on above: Result Comment: [...] High Sensitivity Troponin I Instructions For Use, [employer], April 2018) Performed By: #### 1 [id number] #### [facility] [address] [place] [address] Troponin 6 Hr.on 11-22-2024 Troponin HS 469.60 pg/mL Abnormal 10.10-27.10 [facility] Comment on above: Result Comment: Crit ical Result I_TnIHS:469.6 Called to and read back by: KAMRAN ARCE at: 11/22/2024 13:16:54 by:AG Critical Result Verified by Previous Result The 95% CI (Confidence Interval) PPV (Positive Predictive Value) for myocardial infarction in females is 38 pg/mL, in males 51 pg/mL. The results should be used in conjunction with clinical conditions of myocardial infarction. (Access High Sensitivity Troponin I Instructions For Use, Jannette Titi, April 2018) Performed By: #### 1 [id number] #### [facility] [address] [place] [address] U Drug Screenon 11-22-2024 Amphetamines Screen method >1000 ng/mL Ql (U) Negative Normal NEGATIVE [facility] Comment on above: Result Comment: Nega tive Cutoff: <1000 ng/mL Performed By: #### 2 [id number] #### [facility] [address] [place] [address] Barbiturates Screen Ql (U) Negative Normal NEGATIVE [facility] Comment on above: Result Comment: Nega tive Cutoff: <200 ng/mL Performed By: #### 2 [id number] #### [facility] [address] [place] [address] Benzodiazepines Ql (U) Positive Abnormal NEGATIVE [facility] Comment on above: Result Comment: Crit ical Result Verified by Repeat Analysis No Confirmation Requested by Physician Unconfirmed by an Alternate Method Negative Cutoff: <200 ng/mL Performed By: #### 2 [id number] #### [facility] [address] [place] [address] Cannabinoids Screen Ql (U) Positive Abnormal NEGATIVE [facility] Comment on above: Result Comment: Crit ical Result Verified by Repeat Analysis No Confirmation Requested by Physician Unconfirmed by an Alternate Method Negative Cutoff: <50 ng/mL Performed By: #### 2 [id number] #### [facility] [address] [place] [address] Cocaine Ql (U) Negative Normal NEGATIVE [facility] Comment on above: Result Comment: Nega tive Cutoff: <300 ng/mL Performed By: #### 2 [id number] #### [facility] [address] [place] [address] Opiates Screen Ql (U) Negative Normal NEGATIVE [facility] Comment on above: Result Comment: Nega tive Cutoff: <300 ng/mL Performed By: #### 2 [id number] #### [facility] [address] [place] [address] Phencyclidine Screen method >25 ng/mL Ql (U) Negative Normal NEGATIVE [facility] Comment on above: Result Comment: Nega tive Cutoff: <25 ng/mL These drug screen results are to be used for medical (i.e., treatment) purposes only. Unconfirmed drug screening results must not be used for non-medical purposes (e.g., employment testing, legal testing). Performed By: #### 2 [id number] #### [facility] [address] [place] [address] U Fentanyl Negative Normal NEGATIVE [facility] Comment on above: Result Comment: Nega tive Cutoff: <5 ng/mL These drug screen results are to be used for medical (i.e., treatment) purposes only. Unconfirmed drug screening results must not be used for non-medical purposes (e.g., employment testing, legal testing). Performed By: #### 2 [id number] #### [facility] [address] [place] [address] UA with Cult Rflxon 11-23-19 Type of Urine collection method Catheter Normal [facility] Comment on above: Result Comment: john ged specimen type from clean catch to catheter Performed By: #### 4 [id number] #### [facility] [address] [place] [address] Bilirubin Ql (U) Negative Normal Negative [facility] Comment on above: Performed By: #### 4 [id number] #### [facility] [address] [place] [address] Clarity (U) Clear Normal Clear [facility] Comment on above: Performed By: #### 4 [id number] #### [facility] [address] [place] [address] Color (U) Colorless Abnormal Yellow [facility] Comment on above: Result Comment: Micr oscopic readings are only performed on those samples that meet specific criteria set forth by [facility]. Performed By: #### 4 [id number] #### [facility] [address] [place] [address] Glucose Ql (U) Negative Normal Negative [facility] Comment on above: Performed By: #### 4 [id number] #### [facility] [address] [place] [address] Hemoglobin Auto test strip (U) [Mass/Vol] Negative Normal Negative [facility] Comment on above: Performed By: #### 4 [id number] #### [facility] [address] [place] [address] Ketones Auto test strip Ql (U) Negative Normal Negative [facility] Comment on above: Performed By: #### 4 [id number] #### [facility] [address] [place] [address] Leukocyte esterase Auto test strip Ql (U) Negative Normal Negative [facility] Comment on above: Performed By: #### 4 [id number] #### [facility] [address] [place] [address] Nitrite Auto test strip Ql (U) Negative Normal Negative [facility] Comment on above: Performed By: #### 4 [id number] #### [facility] [address] [place] [address] pH (U) 6.5 [pH] Invalid Interpretation Code 5.0-9.0 [facility] Comment on above: Performed By: #### 4 [id number] #### [facility] [address] [place] [address] Protein Ql (U) Negative Normal Negative [facility] Comment on above: Performed By: #### 4 [id number] #### [facility] [address] [place] [address] Specific gravity (U) [Rel density] 1.025 Invalid Interpretation Code 1.005-1.030 [facility] Comment on above: Performed By: #### 4 [id number] #### [facility] [address] [place] [address] Urobilinogen (U) [Mass/Vol] Negative Normal Negative [facility] Comment on above: Performed By: #### 4 [id number] #### [facility] [address] [place] [address] Type of Urine collection method Clean Catch Normal [facility] Comment on above: Performed By: #### 4 [id number] #### [facility] [address] [place] [address] URINALYSISOrdered By: SYSTEM SYSTEM on 11-22-2024 Bilirubin Ql (U) Negative Normal Negativemg/dL [facility] UA Auto SS Clarity (U) Clear (11/22/24 5:01 AM) Normal Clear [facility] UA Auto SS Color (U) Colorless 4 *ABN* (11/22/24 5:01 AM) Invalid Interpretation Code Yellow [facility] UA Auto SS Comment on above: Interpretive Data: M icroscopic readings are only performed on those samples that meet specific criteria set forth by [facility]. Glucose Ql (U) Negative Normal Negativemg/dL [...] Negative Normal Negativemg/dL [facility] UA Auto SS Specific gravity (U) [Rel density] 1.025 *NA* (11/22/24 5:01 AM) Invalid Interpretation Code 1.005 - 1.030 [facility]A Auto SS Urobilinogen (U) [Mass/Vol] Negative Normal Negativemg/dL [facility] UA Auto SS URINALYSISOrdered By: Georgia Graham on 11-22-2024 UA Spec Desc Catheter 7 (11/22/24 5:01 AM) Normal [facility] UA Auto SS Comment on above: Result Comment: alvaro vallejosj specimen type from clean catch to catheter eGFRon 11-22-2024 eGFR 124 mL/min/1.73 m2 Normal >=59 [facility] Comment on above: Performed By: #### 1 [id number] #### [facility] [address] [place] [address] eGFR 120 mL/min/1.73 m2 Normal >=59 [facility] Comment on above: Performed By: #### 1 [id number] #### [facility] [address] [place] [address] ED Note-Physicianon 11-16-19 ED Note-Physician ED Note-Physician [...] follow-up with a GI doctor at the [facility]. Review of Systems no other aggravating [...] and Complexity of Problems Differential Diagnosis: [] [facility] Data External documents reviewed: [] My [...] can follow-up with her GI doctor at [facility] which she was understanding and stated [...] for 2 day(s), 8 tab(s), Refill(s) 0, [id number], 167, cm, 11/14/24 17:36:00 EST, Height/Length [...] day(s), # 28 cap(s), Refills(s) 0, Pharmacy: [id number], 167, cm, 11/14/24 17:36:00 EST, Height/Length Dosing, 53.1, kg, 11/14/24 17:36:00 EST, Weight Dosing dicyclomine, 20 mg = 1 tab(s), Tab, Oral, Once, Stop date 02 (more content not included)... Normal [facility] Comment on above: Result Comment: Elec tronically Signed By: Ramesh LEDESMA, Wil Amaya\.br\Date and Time Signed: 11/14/24 23:24 EST\.br\Electronically Co-Signed [...] DO Transcribed by: CLARICE Technologist: LUCINDA Pemberton [facility] Extra Blueon 11-15-2024 Tube Collected Plasma Yes Invalid Interpretation Code [facility] Comment on above: Performed By: #### 1 [id number] #### [facility] [address] [place] [address] XR Chest Single Viewon 11-15 XR Chest [...] DO Transcribed by: CLARICE Technologist: SARAY Pemberton [facility] BMPon 11-14-2024 Anion gap [Moles/Vol] 7 mmol/L Normal 6-16 [facility] Comment on above: Order Comment: speci men hemolyzed. phlebotomists notified of recollect by message. [id number] 11/14/2024 19:09:19 EST Performed By: #### 2 [id number] #### [facility] [address] [place] [address] Calcium [Mass/Vol] 6.0 mg/dL Abnormal 8.9-11.1 [facility] Comment on above: Order Comment: speci men hemolyzed. phlebotomists notified of recollect by message. [id number] 11/14/2024 19:09:19 EST Result Comment: Crit ical Result Verified by Repeat Analysis Critical Result S_CA.0 Called to and read back by: SHIRLEY MASON at: 11/14/2024 20:13:52 by:[email or web address] Performed By: #### 2 [id number] #### [facility] [address] [place] [address] Chloride [Moles/Vol] 104 mmol/L Normal 101-111 [facility] Comment on above: Order Comment: speci men hemolyzed. phlebotomists notified of recollect by message. [facility] 11/14/2024 19:09:19 EST Performed By: #### 2 [id number] #### [facility] [address] [place] [address] CO2 [Moles/Vol] 29 mmol/L Normal 21-31 [facility] Comment on above: Order Comment: speci men hemolyzed. phlebotomists notified of recollect by message. [facility] 11/14/2024 19:09:19 EST Performed By: #### 2 [id number] #### [facility] [address] [place] [address] Creatinine [Mass/Vol] 0.5 mg/dL Normal 0.5-1.3 [facility] Comment on above: Order Comment: speci men hemolyzed. phlebotomists notified of recollect by message. [facility] 11/14/2024 19:09:19 EST Performed By: #### 2 [id number] #### [facility] [address] [place] [address] Glucose [Mass/Vol] 90 mg/dL Normal 55-199 [facility] Comment on above: Order Comment: speci men hemolyzed. phlebotomists notified of recollect by message. [facility] 11/14/2024 19:09:19 EST Performed By: #### 2 [id number] #### [facility] [address] [place] [address] Potassium [Moles/Vol] 3.8 mmol/L Normal 3.5-5.3 [facility] Comment on above: Order Comment: speci men hemolyzed. phlebotomists notified of recollect by message. [facility] 11/14/2024 19:09:19 EST Performed By: #### 2 [id number] #### [facility] [address] [place] [address] Sodium [Moles/Vol] 136 mmol/L Normal 135-145 [facility] Comment on above: Order Comment: speci men hemolyzed. phlebotomists notified of recollect by message. [facility] 11/14/2024 19:09:19 EST Performed By: #### 2 [id number] #### [facility] [address] [place] [address] Urea nitrogen [Mass/Vol] 9 mg/dL Normal 5-21 [facility] Comment on above: Order Comment: speci men hemolyzed. phlebotomists notified of recollect by message. [facility] 11/14/2024 19:09:19 EST Performed By: #### 2 [id number] #### [facility] [address] [place] [address] Urea nitrogen/Creatinine [Mass ratio] 18 No Units Normal 10-20 [facility] Comment on above: Order Comment: speci men hemolyzed. phlebotomists notified of recollect by message. [facility] 11/14/2024 19:09:19 EST Performed By: #### 2 [id number] #### [facility] [address] [place] [address] CBC w/ Auto Diffon 5 Basophils/100 WBC (Bld) 0.1 % Normal 0.0-2.0 [facility] Comment on above: Performed By: #### 2 [id number] #### [facility] [address] [place] [address] Basophils/Leukocytes Auto (Bld) [Pure # fraction] 0.0 E9/L Normal 0.0-0.2 [facility] Comment on above: Performed By: #### 2 [id number] #### [facility] [address] [place] [address] Eosinophils (Bld) [#/Vol] 0.1 E9/L Normal 0.0-0.5 [facility] Comment on above: Performed By: #### 2 [id number] #### [facility] [address] [place] [address] [place] [address] Eosinophils/100 WBC (Bld) 0.5 % Normal 0.0-8.0 [facility] Comment on above: Performed By: #### 2 [id number] #### [facility] [address] [place] [address] Erythrocyte distribution width (RBC) [Ratio] 18.5 % High 10.9-14.2 [facility] Comment on above: Performed By: #### 2 [id number] #### [facility] [address] [place] [address] Hematocrit (Bld) [Volume fraction] 32.9 % Low 34.0-46.0 [facility] Comment on above: Performed By: #### 2 [id number] #### [facility] [address] [place] [address] Hemoglobin (Bld) [Mass/Vol] 10.9 g/dL Low 12.0-16.0 [facility] Comment on above: Performed By: #### 2 [id number] #### [facility] [address] [place] [address] Lymphocytes (Bld) [#/Vol] 1.1 E9/L Normal 1.0-4.0 [facility] Comment on above: Performed By: #### 2 [id number] #### [facility] [address] [place] [address] Lymphocytes/100 WBC (Bld) 9.4 % Low 14.0-50.0 [facility] Comment on above: Performed By: #### 2 [id number] #### [facility] [address] [place] [address] MCH (RBC) [Entitic mass] 28.7 pg Normal 27.0-34.0 [facility] Comment on above: Performed By: #### 2 [id number] #### [facility] [address] [place] [address] MCHC (RBC) [Mass/Vol] 33.0 g/dL Normal 31.4-36.0 [facility] Comment on above: Performed By: #### 2 [id number] #### [facility] [address] [place] [address] MCV (RBC) [Entitic vol] 86.8 fL Normal 80.0-100.0 [facility] Comment on above: Performed By: #### 2 [id number] #### [facility] [address] [place] [address] Microcytes Ql (Bld) PRESENT Invalid Interpretation Code [facility] Comment on above: Performed By: #### 2 [id number] #### [facility] [address] [place] [address] Monocytes (Bld) [#/Vol] 0.9 E9/L Normal 0.2-1.0 [facility] Comment on above: Performed By: #### 2 [id number] #### [facility] [address] [place] [address] Neutrophils (Bld) [#/Vol] 10.0 E9/L High 2.0-7.5 [facility] Comment on above: Performed By: #### 2 [id number] #### [facility] [address] [place] [address] Neutrophils/100 WBC (Bld) 82.6 % High 36.0-75.0 [facility] Comment on above: Performed By: #### 2 150356 #### [facility] [address] [place] [address] Platelet mean volume (Bld) [Entitic vol] 7.1 fL Normal 6.4-10.8 [facility] Comment on above: Performed By: #### 2 [id number] #### [facility] [address] [place] [address] Platelets (Bld) [#/Vol] 946.0 E9/L High 150.0-500.0 [facility] Comment on above: Performed By: #### 2 [id number] #### [facility] [address] [place] [address] RBC (Bld) [#/Vol] 3.8 E12/L Low 4.3-5.9 [facility] Comment on above: Performed By: #### 2 [id number] #### [facility] [address] [place] [address] RBC size Nom (Bld) SEE MORPHOLOGY Invalid Interpretation Code [facility] Comment on above: Performed By: #### 2 [id number] #### [facility] [address] [place] [address] WBC corrected for nucl RBC Auto (Bld) [#/Vol] 12.0 E9/L High 4.0-11.0 [facility] Comment on above: Performed By: #### 2 [id number] #### [facility] [address] [place] [address] CHEMISTRYOrdered By: SYSTEM SYSTEM on 11-14-2024 Albumin [...] back by: SHIRLEY MASON at: 11/14/2024 20:13:52 by:[id number] Chloride [Moles/Vol] 104 mmol/L Normal 101 - [...] Sensitivity Troponin I Instructions For Use, Jannette Keene, April 2018) ED Clinical Summaryon 2024 ED Clinical Summary ED Clinical Summary [address] [address] ED Clinical Summary Person Information Name: ROLA AGUILAR [place] Age: 29 Years : 1995 Sex: Female Language: [place] PCP: NONE, XXXX Marital Status: Single Phone: [...] 11/14/2024 23:31:36 11/14/2024 23:31:36 11/14/2024 23:31:36 ADDRESS: [address] [place] [id number] [facility] DOC NOTES: MEDICAL INFORMATION: Prescriptions Given: New Medications [id number] [address] [facility] [address] [place] [id number], [phone] lorazepam (Ativan 0.5 mg Tab) 1 Tablets By Mouth 3 times a day as needed for anxiety for 3 Days. Refills: 0. Medications to Continue Taking That Have Changed [id number], [address] [place] [id number], [phone] START: acetaminophen-oxycodo ne (acetaminophen-oxycod one 325 mg-5 [...] days, 3 (more content not included)... Normal [facility] ED Patient Summaryon 025 ED Patient Summary ED Patient Summary [address] [address] Patient Discharge Instructions Person Information Name: LAUREN ROLA Ward Age: 29 Years Arrival Date: 11/14/2024 17:30:31 Discharge Diagnosis: Crohn disease; Pain in abdomen on palpation Primary Care Physician: NONE, XXXX Provider Information Primary Provider: Harry Devine DO Advanced Registered Nurse Maternity:Wil Chandler PA-C The exam and treatment you received in the Emergency Department were for an urgent problem and are not intended as complete care. It is important that you follow up with a doctor, nurse practitioner, or physician???s housekeeping assistant for ongoing care. If your symptoms become worse or you do not improve as expected and you are unable to reach your usual health care provider, you should return to the Emergency Department. We are available 24 hours a day. ROLA AGUILAR has been given the following list of patient education materials, prescriptions and follow-up instructions: Follow-up Instructions: With: Address: When: John Calderon [address] [place] [address], [address] [place] [phone] [facility] (1) In 3 days 11/17/2024 Comments: Call Dr for diagnosis based follow up In the event that this physician does not participate in your insurance network, please consult with your insurance company to find a nearby participating provider. Patient Education Materials: Abdominal Pain, Adult, Oyiv-jp-Zxwa; Crohn's Disease A MESSAGE TO ALL PATIENTS REGARDING OPIOIDS PRESCRIPTION OPIOIDS: WHAT YOU NEED TO KNOW Prescription opioids can be used to help relieve srrtjeky-zm-zeipac pain and are often prescribed following a [...] and ove (more content not included)... Normal [facility] HEMATOLOGYOrdered By: SYSTEM SYSTEM on 11-14-2024 Basophils/100 [...] 11-14-2024 Albumin [Mass/Vol] 1.5 g/dL Low 3.3-5.0 [facility] Comment on above: Performed By: #### 2 [id number] #### [facility] [address] [place] [address] Albumin/Globulin (S) [Mass conc ratio] 0.5 Low 1.1-2.2 [facility] Comment on above: Performed By: #### 2 [id number] #### [facility] [address] [place] [address] ALP [Catalytic activity/Vol] 103 Int._Unit/L High 21-98 [facility] Comment on above: Performed By: #### 2 [id number] #### [facility] [address] [place] [address] ALT No additional P-5'-P [Catalytic activity/Vol] 8 Int._Unit/L Normal 6-46 [facility] Comment on above: Performed By: #### 2 [id number] #### [facility] [address] [place] [address] AST [Catalytic activity/Vol] 9 Int._Unit/L Normal 5-43 [facility] Comment on above: Performed By: #### 2 [id number] #### [facility] [address] [place] [address] Bilirubin [Mass/Vol] 0.2 mg/dL Normal 0.0-1.1 [facility] Comment on above: Performed By: #### 2 [id number] #### [facility] [address] [place] [address] Bilirubin.direct [Mass/Vol] 0.1 mg/dL Normal 0.0-0.4 [facility] Comment on above: Performed By: #### 2 [id number] #### [facility] [address] [place] [address] Bilirubin.indirect [Mass or moles/Vol] 0.1 mg/dL Normal 0.1-0.9 [facility] Comment on above: Performed By: #### 2 672132 #### [facility] [address] [place] [address] Globulin (S) [Mass/Vol] 2.8 g/dL Normal 1.4-4.0 [facility] Comment on above: Performed By: #### 2 869811 #### [facility] [address] [place] [address] Protein [Mass/Vol] 4.3 g/dL Low 6.0-7.8 [facility] Comment on above: Performed By: #### 2 551707 #### [facility] [address] [place] [address] Lipase Levelon 11-14-2024 Lipase [Catalytic activity/Vol] 12 U/L Low 13-58 [facility] Comment on above: Performed By: #### 2 [id number] #### [facility] [address] [place] [address] Troponin 0 Hr.on 11-14-2024 Troponin HS 4.40 pg/mL Low 10.10-27.10 [facility] Comment on above: Result Comment: The 95% CI (Confidence Interval) PPV (Positive Predictive Value) for myocardial infarction in females is 38 pg/mL, in males 51 pg/mL. The results should be used in conjunction with clinical conditions of myocardial infarction. (Access High Sensitivity Troponin I Instructions For Use, Jannette Keene, April 2018) Performed By: #### 1 [id number] #### [facility] [address] [place] [address] eGFRon 11-14-2024 eGFR 130 mL/min/1.73 m2 Normal >=59 [facility] Comment on above: Performed By: #### 1 [id number] #### [facility] [address] [place] [address] ED Note-Physicianon 10-05-19 25 ED Note-Physician ED [...] complications) Diarrh (more content not included)... Normal [facility] Comment on above: Result Comment: Elec tronically Signed By: Gadiel Vega PA-C\.br\Date and Time Signed: 10/02/24 17:44 EST\.br\Electronically Co-Signed By: Harry Devine DO\.reese\Date and Time Co-Signed: 10/05/24 08:10 EST B hCG Qualon 10-02-2024 Beta HCG ( test) Ql Negative Normal [facility] Comment on above: Performed By: #### 2 [id number] #### [facility] [address] [place] [address] BMPon 10-02-2024 Anion gap [Moles/Vol] 16 mmol/L Normal 6-16 [facility] Comment on above: Performed By: #### 2 564157 #### [facility] [address] [place] [address] Calcium [Mass/Vol] 8.1 mg/dL Low 8.9-11.1 [facility] Comment on above: Performed By: #### 2 300265 #### [facility] [address] [place] [address] Chloride [Moles/Vol] 90 mmol/L Low 101-111 [facility] Comment on above: Performed By: #### 2 423064 #### [facility] [address] [place] [address] CO2 [Moles/Vol] 29 mmol/L Normal 21-31 [facility] Comment on above: Performed By: #### 2 740435 #### [facility] [address] [place] [address] Creatinine [Mass/Vol] 0.7 mg/dL Normal 0.5-1.3 [facility] Comment on above: Performed By: #### 2 853039 #### [facility] [address] [place] [address] Glucose [Mass/Vol] 93 mg/dL Normal 55-199 [facility] Comment on above: Performed By: #### 2 400199 #### [facility] [address] [place] [address] Potassium [Moles/Vol] 3.5 mmol/L Normal 3.5-5.3 [facility] Comment on above: Performed By: #### 2 295451 #### [facility] [address] [place] [address] Sodium [Moles/Vol] 131 mmol/L Low 135-145 [facility] Comment on above: Performed By: #### 2 916068 #### [facility] [address] [place] [address] Urea nitrogen [Mass/Vol] 8 mg/dL Normal 5-21 [facility] Comment on above: Performed By: #### 2 330857 #### [facility] [address] [place] [address] Urea nitrogen/Creatinine [Mass ratio] 11 No Units Normal 10-20 [facility] Comment on above: Performed By: #### 2 745372 #### [facility] [address] [place] [address] CBC w/ Auto Diffon 5 Basophils/100 WBC (Bld) 0.2 % Normal 0.0-2.0 [facility] Comment on above: Performed By: #### 2 627405 #### [facility] [address] [place] [address] Basophils/Leukocytes Auto (Bld) [Pure # fraction] 0.0 E9/L Normal 0.0-0.2 [facility] Comment on above: Performed By: #### 2 770529 #### [facility] [address] [place] [address] Eosinophils (Bld) [#/Vol] 0.0 E9/L Normal 0.0-0.5 [facility] Comment on above: Performed By: #### 2 240947 #### [facility] [address] [place] [address] Eosinophils/100 WBC (Bld) 0.3 % Normal 0.0-8.0 [facility] Comment on above: Performed By: #### 2 426314 #### [facility] [address] [place] [address] Erythrocyte distribution width (RBC) [Ratio] 16.0 % High 10.9-14.2 [facility] Comment on above: Performed By: #### 2 229277 #### [facility] [address] [place] [address] [place] [address] Hematocrit (Bld) [Volume fraction] 39.5 % Normal 34.0-46.0 [facility] Comment on above: Performed By: #### 2 549637 #### [facility] [address] [place] [address] Hemoglobin (Bld) [Mass/Vol] 13.8 g/dL Normal 12.0-16.0 [facility] Comment on above: Performed By: #### 2 313745 #### [facility] [address] [place] [address] Lymphocytes (Bld) [#/Vol] 2.5 E9/L Normal 1.0-4.0 [facility] Comment on above: Performed By: #### 2 709946 #### [facility] [address] [place] [address] Lymphocytes/100 WBC (Bld) 19.4 % Normal 14.0-50.0 [facility] Comment on above: Performed By: #### 2 781532 #### [facility] [address] [place] [address] MCH (RBC) [Entitic mass] 28.7 pg Normal 27.0-34.0 [facility] Comment on above: Performed By: #### 2 914003 #### [facility] [address] [place] [address] MCHC (RBC) [Mass/Vol] 34.9 g/dL Normal 31.4-36.0 [facility] Comment on above: Performed By: #### 2 346313 #### [facility] [address] [place] [address] MCV (RBC) [Entitic vol] 82.0 fL Normal 80.0-100.0 [facility] Comment on above: Performed By: #### 2 924312 #### [facility] [address] [place] [address] Monocytes (Bld) [#/Vol] 1.0 E9/L Normal 0.2-1.0 [facility] Comment on above: Performed By: #### 2 943625 #### [facility] [address] [place] [address] Neutrophils (Bld) [#/Vol] 9.4 E9/L High 2.0-7.5 [facility] Comment on above: Performed By: #### 2 199278 #### [facility] [address] [place] [address] Neutrophils/100 WBC (Bld) 72.3 % Normal 36.0-75.0 [facility] Comment on above: Performed By: #### 2 285967 #### [facility] [address] [place] [address] Platelet 825.0 E9/L High 150.0-500.0 [facility] Comment on above: Result Comment: Cele pheral smear review performed. Performed By: #### 2 757779 #### [facility] [address] [place] [address] Platelet mean volume (Bld) [Entitic vol] 6.7 fL Normal 6.4-10.8 [facility] Comment on above: Performed By: #### 2 664072 #### [facility] [address] [place] [address] RBC (Bld) [#/Vol] 4.8 E12/L Normal 4.3-5.9 [facility] Comment on above: Performed By: #### 2 998205 #### [facility] [address] [place] [address] WBC corrected for nucl RBC Auto (Bld) [#/Vol] 13.0 E9/L High 4.0-11.0 [facility] Comment on above: Performed By: #### 2 795925 #### [facility] [address] [place] [address] CHEMISTRYOrdered By: SYSTEM SYSTEM on 10-02-2024 Albumin [...] High Sensitivity Troponin I Instructions For Use, [employer], April 2018) Urea nitrogen [Mass/Vol] 8 mg/dL [...] High Sensitivity Troponin I Instructions For Use, [employer], April 2018) CT Abdomen/Pelvis w/ Contras ton [...] Comments Contrast amount in ml's: 100 Normal [facility] ED Clinical Summaryon 2024 ED Clinical Summary ED Clinical Summary [place] [id number] ED Clinical Summary Person Information Name: ROLA AGUILAR [facility] Age: 29 Years : 1995 Sex: Female Language: South African PCP: NONE, XXXX Marital Status: Single Phone: [...] 10/02/2024 17:50:10 10/02/2024 17:50:10 10/02/2024 17:50:10 ADDRESS: [address] [place] [phone] PHYS DOC NOTES: MEDICAL INFORMATION: Prescriptions Given: Medications to Continue Taking That Have Changed [facility]/pharmacy #[id number], [address] [place], [place] [phone], [phone] START: ondansetron (ondansetron 4 mg Dis Tab) [...] tablets a (more content not included)... Normal [facility] ED Patient Summaryon 025 ED Patient Summary ED Patient Summary [address] [address] Patient Discharge Instructions Person Information Name: ROLA AGUILAR Age: 29 Years Arrival Date: 10/02/2024 13:52:15 Discharge Diagnosis: Crohn's disease; Diarrhea; Nausea & vomiting Primary Care Physician: NONE, XXXX Provider Information Primary Provider: Harry Devine DO Advanced Registered Nurse Maternity:Gary PA-C, Gadiel C. The exam and treatment you received in the Emergency Department were for an urgent problem and are not intended as complete care. It is important that you follow up with a doctor, nurse practitioner, or physician???s housekeeping assistant for ongoing care. If your symptoms [...] Follow-up Instructions: With: Address: When: Gumaro Acevedo [address] [place] [phone] Business (1) In 3 days 10/05/2024 In the event that this physician does not participate in your insurance network, please consult with your insurance company to find a nearby participating provider. Patient Education Materials: Abdominal Pain, Adult; Crohn's Disease A MESSAGE TO ALL PATIENTS REGARDING OPIOIDS PRESCRIPTION OPIOIDS: WHAT YOU NEED TO KNOW Prescription opioids can be used to help relieve zdhbbazg-rv-hsbgsd pain and are often prescribed following a [...] your h (more content not included)... Normal [facility] EMS Documentationon 10-02-19 EMS Documentation Report Please click on link to see report Normal [facility] Comment on above: Result Comment: Miss ing Attachment - total size limit for all attachments exceeded [email or web address] Can be viewed in source system Extra Roney 10-02-2024 WB Tube Collected Yes Invalid Interpretation Code [facility] Comment on above: Performed By: #### 1 [id number] #### [facility] [address] [place] [address] HEMATOLOGYOrdered By: SYSTEM SYSTEM on 10-02-2024 Basophils/100 [...] 10-02-2024 Albumin [Mass/Vol] 2.5 g/dL Low 3.3-5.0 [facility] Comment on above: Performed By: #### 2 [id number] #### [facility] [address] [place] [address] Albumin/Globulin (S) [Mass conc ratio] 0.6 Low 1.1-2.2 [facility] Comment on above: Performed By: #### 2 396362 #### [facility] [address] [place] [address] ALP [Catalytic activity/Vol] 185 Int._Unit/L High 21-98 [facility] Comment on above: Performed By: #### 2 925204 #### [facility] [address] [place] [address] ALT No additional P-5'-P [Catalytic activity/Vol] 16 Int._Unit/L Normal 6-46 [facility] Comment on above: Performed By: #### 2 726678 #### [facility] [address] [place] [address] AST [Catalytic activity/Vol] 26 Int._Unit/L Normal 5-43 [facility] Comment on above: Performed By: #### 2 471180 #### [facility] [address] [place] [address] Bilirubin [Mass/Vol] 0.6 mg/dL Normal 0.0-1.1 [facility] Comment on above: Performed By: #### 2 491557 #### [facility] [address] [place] [address] Bilirubin.direct [Mass/Vol] 0.1 mg/dL Normal 0.0-0.4 [facility] Comment on above: Performed By: #### 2 049982 #### [facility] [address] [place] [address] Bilirubin.indirect [Mass or moles/Vol] 0.5 mg/dL Normal 0.1-0.9 [facility] Comment on above: Performed By: #### 2 853736 #### [facility] [address] [place] [address] Globulin (S) [Mass/Vol] 4.4 g/dL High 1.4-4.0 [facility] Comment on above: Performed By: #### 2 730562 #### [facility] [address] [place] [address] Protein [Mass/Vol] 6.9 g/dL Normal 6.0-7.8 [facility] Comment on above: Performed By: #### 2 623044 #### [facility] [address] [place] [address] Lipase Levelon 10-02-2024 Lipase [Catalytic activity/Vol] 9 U/L Low 13-58 [facility] Comment on above: Performed By: #### 2 946117 #### [facility] [address] [place] [address] Pre-Arrival Noteon 5 Pre-Arrival Note Pre-Arrival Note Pre-Arrival Summary Name: , maria e Current Date: 10/02/2024 13:53:11 EST Gender: Female Date of : Age: 29 Pre-Arrival Type: EMS ETA: 10/02/2024 14:16:00 EST Primary Care Physician: Presenting Problem: abd pain Pre-Arrival User: Katie Yates RN Referring Source: Location: [place] Completion Date/Time: 10/02/2024 13:46:00 [facility] Emergency Department Pre-Hospital Report Form Vital Signs: Pre-Hospital Report: abd pain, GI bleed, n/v for 3 days. tachy at 147s, glucose 119. 4 mg PO ZO Treatment in Route: Response to Treatment: Misc. Issues: Normal [facility] SEROLOGYOrdered By: Sherrell Mason on 10-02-2024 Beta HCG ( test) Ql Negative (10/02/24 2:31 PM) Normal [facility] Man Sero Troponin 0 Hr.on 10-02-2024 Troponin HS 25.00 pg/mL Normal 10.10-27.10 [facility] Comment on above: Result Comment: The 95% CI (Confidence Interval) PPV (Positive Predictive Value) for myocardial infarction in females is 38 pg/mL, in males 51 pg/mL. The results should be used in conjunction with clinical conditions of myocardial infarction. (Access High Sensitivity Troponin I Instructions For Use, [employer], April 2018) Performed By: #### 1 [id number] #### [facility] [address] [place] [address] Troponin 1 Hr.on 10-02-2024 Troponin HS 7.10 pg/mL Low 10.10-27.10 [facility] Comment on above: Order Comment: 1508 Result Comment: The 95% CI (Confidence Interval) PPV (Positive Predictive Value) for myocardial infarction in females is 38 pg/mL, in males 51 pg/mL. The results should be used in conjunction with clinical conditions of myocardial infarction. ([employer] High Sensitivity Troponin I Instructions For Use, [employer], April 2018) Performed By: #### 1 [id number] #### [facility] [address] [place] [address] eGFRon 10-02-2024 eGFR 120 mL/min/1.73 m2 Normal >=59 [facility] Comment on above: Performed By: #### 1 [id number] #### [facility] [address] [place] [address] Ciro 08-12-2024 [facility] Telephone ([facility]) ROLA AGUILAR ([id number]) 1995 F Date Time Provider Department 08/12/24 LEE ANN HUMPHRIES [facility] During your visit today, we recorded the following information about you: Heather Leary RN 08/12/2024 2:49 PM Signed Attempted to call patient. Left detailed VM for patient to call [facility] at [phone] SHAHBAZ Rosado Rebecca, [facility] Lee Ann Humphries DO; Heather Leary RN Noted, thank you! I'll keep trying to reach her. Amina ----- Message ----- From: Lee Ann Humphries DO Sent: 08/12/2024 11:25 AM EST To: Heather Leary RN; Zaira Gonzalez [facility] Yes, she should still continue her Entyvio after surgery. I will have our office try to reach out to her as well. Thank you for the update. Lee Ann Humphries DO ----- Message ----- From: Zaira Gonzalez vidal Sent: 08/12/2024 11:19 AM EST To: DO Christelle Gu[address] Dr[address] [facility] has been unable to reach patient to set up Entyvio refill shipment after several attempts. Is she continuing Entyvio at this time? I see that she had surgery a few weeks ago. Thanks, Amina Allergies As of Date: 08/12/2024 Noted [...] Encounter Status:Closed by HEATHER LEARY on 08/12/24 [facility] ANES POSTPROC EVALon 024 ANES POSTPROC EVAL HNO ID: [id number] Author: RADHA ARNOLD MD Service: Anesthesiology Author Type: Anesthesiologist Type: Anesthesia Postprocedure Evaluation Filed: 07/20/2024 14:08 Note Text: POST ANESTHESIA EVALUATION NOTE : 1995 Procedure Summary Date: 07/20/24 Room / Location: OR11 / [facility] OR Anesthesia Start: 1229 Anesthesia Stop: 1324 [...] July 20, 2024 TIME: 2:07 PM CSN: [id number] [facility] ANES PRE-OPon 07-20-2024 ANES PRE-OP HNO ID: [id number] Author: RADHA ARNOLD MD Service: Anesthesiology Author [...] and consent discussed: yes. Patient / Responsible Libertarian agrees to proceed: yes Patient / Surrogate [...] July 20, 2024 TIME: 11:04 AM CSN: [id number] Normal [facility] B-HCG SerPl-aCncon 4 HCG.beta subunit Qn m[IU]/mL Normal <5.0 [facility] Comment on above: Order Comment: Speci men Type: BLOOD SPECIMEN Ordering Facility: [facility] Address: [address] [place] [address] Result Comment: Nega tive Performed By: #### 2 777-1, 12616-9, 12729-3 #### [facility] CLIA [id number] [place] [address] [place] Bacteria Wnd Culton 07-20-20 24 Bacteria identified Cx Nom (Wound) ORGANISM ID: 1 Rare Eikenella corrodens No further workup BLACT: Negative ORGANISM ID: 2 Few skin jaden GRAM STAIN: Few Gram positive cocci Few Gram negative bacilli Rare Gram positive bacilli Moderate Polymorphonuclear leukocytes Abnormal [facility] Comment on above: Performed By: #### 6 462-6 ####[facility]CL[facility] [id number] [facility] [place] [address] [place] HISTORY PHYSICALon 4 HISTORY PHYSICAL HNO ID: [id number] Author: SHAQ THAKKAR MD Service: Colorectal Author [...] for EUA, possi (more content not included)... [facility] NURSING PROGon 07-20-2024 NURSING PROG HNO ID: [id number] Author: FRANCISCO BENAVIDEZ RN Service: Nursing Author [...] (RECOMMENDATION): None Electronically Signed By: Francisco Benavidez [facility] OPERATIVE NOon 07-20-2024 OPERATIVE NO HNO ID: [id number] Author: SHAQ THAKKAR MD Service: Colorectal Author Type: Physician Type: Operative Report Filed: 07/23/2024 08:03 Note Text: OPERATIVE/PROCEDURE REPORT LOG ID: [id number] SURGERY/PROCEDURE DATE: 07/20/2024 INCISION/PROCEDURE START TIME: 12:51 PM INCISION CLOSE/PROCEDURE END TIME: 1:10 PM SURGEON(S)/PROCEDURAL IST(S) AND VEST FRONT PRESSER(S): Surgeons and Role: * Shaq Thakkar MD [...] LOSS: 15 mls SPECIMENS: None IMPLANTABLE DEVICES: [place] DRAINS: None COMPLICATIONS: None PARTICIPATION IN SURGERY/PROCEDURE: I/primary surgeon/proceduralist performed the procedure with assistance. On behalf of: Shaq Thakkar MD SIGNATURE: Candelario Araya MD PATIENT NAME: Rola Aguilar DATE: July 20, 2024 TIME: 1:51 PM Normal [facility] OPERATIVE NO HNO ID: [id number] Author: SHAQ THAKKAR MD Service: Colorectal Author Type: Physician Type: Operative Report Filed: 07/23/2024 08:01 Note Text: [facility] - Operative Report ROLA AGUILAR : 1995 AGE: 28. SEX: F PATIENT TYPE: A HOSP SVC: CRS LOCATION: [facility] ATTENDING PHYSICIAN: Shaq Thakkar M.D. CSN NUMBER: [id number] DATE OF SURGERY/PROCEDURE: 07/20/2024 INCISION/PROCEDURE START TIME: 12:51 PM INCISION CLOSE/PROCEDURE END TIME: 1:10 PM PREOPERATIVE DIAGNOSIS: Crohn disease, anorectal abscess. POSTOPERATIVE DIAGNOSIS: Crohn disease, anorectal abscess. SURGEON: Shaq Thakkar M.D. VEST FRONT PRESSER: Deidra. SURGERY/PROCEDURE: Incision and drainage of the [...] the anal canal this time other than parth anal stenosis that was gently dilated and therefore just the draining seton was placed. We injected 40 mL of local at the end of the case. We ensured we had adequate hemostasis and she transferred to recovery room in great condition. Shaq Thakkar M.D. BC:[id number] Normal [facility] CNOVon 07-17-2024 CNOV Office Visit (COFHAM ) ROLA AGUILAR ([id number]) 1995 F Date Time Provider Department 07/17/24 10:15 AM SHAQ THAKKAR [facility] During your visit today, we recorded [...] exam Anorectal: External exam reveals: see below Executive Asst present: yes The sensitive examination was discussed with the Patient or Patient's Authorized Cardiovascular Disease Specialist. As applicable, any other physician, advance practice provider, medical student, or other health professional student that will be observing or involved in the sensitive examination for educational or training purposes was discussed with the Patient or Authorized Cardiovascular Disease Specialist. The Patient or Authorized Cardiovascular Disease Specialist has agreed to proceed with the sensitive examination. (Sensitive examination includes inspection and/or palpation of the breasts, pelvis, prostate and anorectal regions) Assessment Assessment and Plan: Rola Aguilar is a 28 year old female with a pa (more content not included)... Normal [facility] CT Abdomen/Pelvis w/ Contras ton 07-14-2024 CT [...] Oral contrast amount in ml's: 0 Normal [facility] ED Note-Physicianon 07-14-20 ED Note-Physician ED Note-Physician Basic Information Time Seen: Wil Chandler PA-C. 07/13/2024 18:42 Chief Complaint possible Chrons flare, [...] and Complexity of Problems Differential Diagnosis: [] [facility] Data External documents reviewed: [] My [...] day(s), # 28 cap(s), Refills(s) 0, Pharmacy: [facility]/pharmacy #[id number], 167, cm, 07/13/24 18:32:00 EDT, Height/Length [...] day(s), # 5 tab(s), Refills(s) 0, Pharmacy: [facility]/pharmacy #[id number], 167, cm, 07/13/24 18:32:00 EDT, Height/Length Dosing, 63.6, kg, 07/13/24 18:32:00 EDT, Weight Dosing Basic Metabolic Panel Beta hCG Qual CBC w/ Auto Diff CT Abdomen/Pelvis w/ Contrast eGFR Extra Blue Tube Extra SST Tube Hepatic Function Panel Lipase Level Saline Lock (more content not included)... Normal [facility] Comment on above: Result Comment: Elec tronically Signed By: Wil Chandler PA-C\.br\Date and Time Signed: 07/13/24 23:33 EDT\.br\Electronically Co-Signed By: Elliot Macias DO\.br\Date and Time Co-Signed: 07/14/24 06:48 EDT B hCG Qualon 07-13-2024 Beta HCG ( test) Ql Negative Normal [facility] Comment on above: Performed By: #### 2 [id number] #### [facility] [address] [place] [address] BMPon 07-13-2024 Anion gap [Moles/Vol] 11 mmol/L Normal 6-16 [facility] Comment on above: Performed By: #### 2 [id number] #### [facility] [address] [place] [address] Calcium [Mass/Vol] 8.3 mg/dL Low 8.9-11.1 [facility] Comment on above: Performed By: #### 2 [id number] #### [facility] [address] [place] [address] Chloride [Moles/Vol] 97 mmol/L Low 101-111 [facility] Comment on above: Performed By: #### 2 [id number] #### [facility] [address] [place] [address] CO2 [Moles/Vol] 31 mmol/L Normal 21-31 [facility] Comment on above: Performed By: #### 2 [id number] #### [facility] [address] [place] [address] Creatinine [Mass/Vol] 0.7 mg/dL Normal 0.5-1.3 [facility] Comment on above: Performed By: #### 2 [id number] #### [facility] [address] [place] [address] Glucose [Mass/Vol] 92 mg/dL Normal 55-199 [facility] Comment on above: Performed By: #### 2 [id number] #### [facility] [address] [place] [address] Potassium [Moles/Vol] 3.8 mmol/L Normal 3.5-5.3 [facility] Comment on above: Performed By: #### 2 [id number] #### [facility] [address] [place] [address] Sodium [Moles/Vol] 135 mmol/L Normal 135-145 [facility] Comment on above: Performed By: #### 2 [id number] #### [facility] [address] [place] [address] Urea nitrogen [Mass/Vol] 7 mg/dL Normal 5-21 [facility] Comment on above: Performed By: #### 2 [id number] #### [facility] [address] [place] [address] Urea nitrogen/Creatinine [Mass ratio] 10 No Units Normal 10-20 [facility] Comment on above: Performed By: #### 2 [id number] #### [facility] [address] [place] [address] CBC w/ Auto Diffon 4 Basophils/100 WBC (Bld) 0.3 % Normal 0.0-2.0 [facility] Comment on above: Performed By: #### 2 [id number] #### [facility] [address] [place] [address] Basophils/Leukocytes Auto (Bld) [Pure # fraction] 0.0 E9/L Normal 0.0-0.2 [facility] Comment on above: Performed By: #### 2 966612 #### [facility] [address] [place] [address] Eosinophils (Bld) [#/Vol] 0.1 E9/L Normal 0.0-0.5 [facility] Comment on above: Performed By: #### 2 910524 #### [facility] [address] [place] [address] Eosinophils/100 WBC (Bld) 0.8 % Normal 0.0-8.0 [facility] Comment on above: Performed By: #### 2 350706 #### [facility] [address] [place] [address] Erythrocyte distribution width (RBC) [Ratio] 16.7 % High 10.9-14.2 [facility] Comment on above: Performed By: #### 2 078462 #### [facility] [address] [place] [address] Hematocrit (Bld) [Volume fraction] 38.4 % Normal 34.0-46.0 [facility] Comment on above: Performed By: #### 2 803514 #### [facility] [address] [place] [address] Hemoglobin (Bld) [Mass/Vol] 12.5 g/dL Normal 12.0-16.0 [facility] Comment on above: Performed By: #### 2 052559 #### [facility] [address] [place] [address] Lymphocytes (Bld) [#/Vol] 0.7 E9/L Low 1.0-4.0 [facility] Comment on above: Performed By: #### 2 022022 #### [facility] [address] [place] [address] Lymphocytes/100 WBC (Bld) 8.1 % Low 14.0-50.0 [facility] Comment on above: Performed By: #### 2 303993 #### [facility] [address] [place] [address] MCH (RBC) [Entitic mass] 27.2 pg Normal 27.0-34.0 [facility] Comment on above: Performed By: #### 2 718653 #### [facility] [address] [place] [address] MCHC (RBC) [Mass/Vol] 32.7 g/dL Normal 31.4-36.0 [facility] Comment on above: Performed By: #### 2 989045 #### [facility] [address] [place] [address] MCV (RBC) [Entitic vol] 83.1 fL Normal 80.0-100.0 [facility] Comment on above: Performed By: #### 2 897932 #### [facility] [address] [place] [address] Monocytes (Bld) [#/Vol] 0.7 E9/L Normal 0.2-1.0 [facility] Comment on above: Performed By: #### 2 046544 #### [facility] [address] [place] [address] Neutrophils (Bld) [#/Vol] 7.7 E9/L High 2.0-7.5 [facility] Comment on above: Performed By: #### 2 369405 #### [facility] [address] [place] [address] Neutrophils/100 WBC (Bld) 83.7 % High 36.0-75.0 [facility] Comment on above: Performed By: #### 2 411144 #### [facility] [address] [place] [address] Platelet mean volume (Bld) [Entitic vol] 7.0 fL Normal 6.4-10.8 [facility] Comment on above: Performed By: #### 2 899193 #### [facility] [address] [place] [address] Platelets (Bld) [#/Vol] 488.0 E9/L Normal 150.0-500.0 [facility] Comment on above: Performed By: #### 2 855154 #### [facility] [address] [place] [address] RBC (Bld) [#/Vol] 4.6 E12/L Normal 4.3-5.9 [facility] Comment on above: Performed By: #### 2 723611 #### [facility] [address] [place] [address] WBC corrected for nucl RBC Auto (Bld) [#/Vol] 9.2 E9/L Normal 4.0-11.0 [facility] Comment on above: Performed By: #### 2 398634 #### [facility] [address] [place] [address] CHEMISTRYOrdered By: Suellen Cadet on 07-13-2024 Albumin [...] 2023 ED Clinical Summary ED Clinical Summary [place] [id number] ED Clinical Summary Person Information Name: ROLA AGUILAR Sj [facility] Age: 28 Years : 1995 Sex: Female Language: South African PCP: NONE, XXXX Marital Status: Single Phone: [phone] Visit Id: Visit Reason: Nausea; Vomiting; Abdominal [...] 07/13/2024 23:57:10 07/13/2024 23:57:10 07/13/2024 23:57:10 ADDRESS: [address] [place] [phone] PHYS DOC NOTES: MEDICAL INFORMATION: Prescriptions Given: Medications to Continue Taking That Have Changed [facility]/pharmacy #[id number], [address] [place], [place] [id number], [phone] START: dicyclomine (Bentyl 10 mg Cap) 1 [...] for nausea/vomiti (more content not included)... Normal [facility] ED Patient Summaryon 024 ED Patient Summary ED Patient Summary [address] [address] Patient Discharge Instructions Person Information Name: ROLA AGUILAR Age: [address] [facility]: [id number] Arrival Date: 07/13/2024 18:22:47 Discharge Diagnosis: Abdominal pain; Crohn's disease Primary Care Physician: NONE, XXXX Provider Information Primary Provider: Elliot Macias DO Advanced Registered Nurse Maternity:None The exam and treatment you received in the Emergency Department were for an urgent problem and are not intended as complete care. It is important that you follow up with a doctor, nurse practitioner, or physician?s housekeeping assistant for ongoing care. If your symptoms [...] Follow-up Instructions: With: Address: When: Ja Bhardwaj [address] [place] [address], [address], [address] [phone] Business (1) In 3 days 07/16/2024 Comments: Call Dr for diagnosis based follow up In the event that this physician does not participate in your insurance network, please consult with your insurance company to find a nearby participating provider. Patient Education Materials: Crohn's Disease; Abdominal Pain, Adult, Nhym-gj-Lhco A MESSAGE TO ALL PATIENTS REGARDING OPIOIDS PRESCRIPTION OPIOIDS: WHAT YOU NEED TO KNOW Prescription opioids can be used to help relieve nrjoedsx-oy-pikqza pain and are often prescribed following a [...] your health ca (more content not included)... [facility] 07-13-2024 Tube Collected Plasma Yes Invalid Interpretation Code [facility] Comment on above: Performed By: #### 1 [id number] #### [facility] [address] [place] [address] HEMATOLOGYOrdered By: SYSTEM SYSTEM on 07-13-2024 Basophils/100 [...] 07-13-2024 Albumin [Mass/Vol] 2.7 g/dL Low 3.3-5.0 [facility] Comment on above: Performed By: #### 2 [id number] #### [facility] [address] [place] [address] Albumin/Globulin (S) [Mass conc ratio] 0.6 Low 1.1-2.2 [facility] Comment on above: Performed By: #### 2 818590 #### [facility] [address] [place] [address] ALP [Catalytic activity/Vol] 143 Int._Unit/L High 21- [facility] Comment on above: Performed By: #### 2 335006 #### [facility] [address] [place] [address] ALT No additional P-5'-P [Catalytic activity/Vol] 9 Int._Unit/L Normal 6-46 [facility] Comment on above: Performed By: #### 2 093345 #### [facility] [address] [place] [address] AST [Catalytic activity/Vol] 23 Int._Unit/L Normal 5-43 [facility] Comment on above: Performed By: #### 2 304746 #### [facility] [address] [place] [address] Bilirubin [Mass/Vol] 0.4 mg/dL Normal 0.0-1.1 [facility] Comment on above: Performed By: #### 2 422577 #### [facility] [address] [place] [address] Bilirubin.direct [Mass/Vol] 0.1 mg/dL Normal 0.0-0.4 [facility] Comment on above: Performed By: #### 2 970726 #### [facility] [address] [place] [address] Bilirubin.indirect [Mass or moles/Vol] 0.3 mg/dL Normal 0.1-0.9 [facility] Comment on above: Performed By: #### 2 539308 #### [facility] [address] [place] [address] Globulin (S) [Mass/Vol] 4.5 g/dL High 1.4-4.0 [facility] Comment on above: Performed By: #### 2 148142 #### [facility] [address] [place] [address] Protein [Mass/Vol] 7.2 g/dL Normal 6.0-7.8 [facility] Comment on above: Performed By: #### 2 468526 #### [facility] [address] [place] [address] Lipase Levelon 07-13-2024 Lipase [Catalytic activity/Vol] 23 U/L Normal 13-58 [facility] Comment on above: Performed By: #### 2 250527 #### [facility] [address] [place] [address] SEROLOGYOrdered By: Sherrell Mason on 07-13-2024 Beta HCG ( test) Ql Negative (07/13/24 7:28 PM) Normal [facility] Man Sero eGFRon 07-13-2024 eGFR 120 mL/min/1.73 m2 Normal >=59 [facility] Comment on above: Performed By: #### 1 [id number] #### [facility] [address] [place] [address] ED Note-Physicianon 07-06-20 ED Note-Physician ED Note-Physician [...] She follows with colorectal surgery at [facility]. She is being scheduled for management [...] made to ensure accuracy, however, inadvertently computerized sales center manager mistakes may be present. Appropriate healthcare PPE was used in evaluating this patient. Problem List/Past Medical History Ongoing Anxiety disorder due to medical condition Bipolar depression Crohn's disease Generalized anxiety disorder H/O psoriasis Mechanical deep vein thrombosis (DVT) prophylaxis in place Protein-calorie malnutrition, severe S/P ileostomy Sinus tachycardia Smoker Vitamin A deficiency Historical Fistula Panic at (more content not included)... Normal [facility] Comment on above: Result Comment: Elec tronically Signed By: Puneet Proctor PA-C\.br\Date and Time Signed: 06/30/24 15:15 EDT\.br\Electronically Co-Signed By: Harry Devine DO\.br\Date and Time Co-Signed: 07/06/24 07:37 EDT BMPon 06-30-2024 Anion gap [Moles/Vol] 13 mmol/L Normal 6-16 [facility] Comment on above: Performed By: #### 2 [id number] #### [facility] [address] [place] [address] Calcium [Mass/Vol] 8.0 mg/dL Low 8.9-11.1 [facility] Comment on above: Performed By: #### 2 366589 #### [facility] [address] [place] [address] Chloride [Moles/Vol] 98 mmol/L Low 101-111 [facility] Comment on above: Performed By: #### 2 429589 #### [facility] [address] [place] [address] CO2 [Moles/Vol] 27 mmol/L Normal 21-31 [facility] Comment on above: Performed By: #### 2 855031 #### [facility] [address] [place] [address] Creatinine [Mass/Vol] 0.6 mg/dL Normal 0.5-1.3 [facility] Comment on above: Performed By: #### 2 445370 #### [facility] [address] [place] [address] Glucose [Mass/Vol] 100 mg/dL Normal 55-199 [facility] Comment on above: Performed By: #### 2 365231 #### [facility] [address] [place] [address] Potassium [Moles/Vol] 3.3 mmol/L Low 3.5-5.3 [facility] Comment on above: Performed By: #### 2 047216 #### [facility] [address] [place] [address] Sodium [Moles/Vol] 135 mmol/L Normal 135-145 [facility] Comment on above: Performed By: #### 2 812059 #### [facility] [address] [place] [address] Urea nitrogen [Mass/Vol] 7 mg/dL Normal 5-21 [facility] Comment on above: Performed By: #### 2 354390 #### [facility] [address] [place] [address] Urea nitrogen/Creatinine [Mass ratio] 12 No Units Normal 10-20 [facility] Comment on above: Performed By: #### 2 736320 #### [facility] [address] [place] [address] CBC w/ Auto Diffon 4 Basophils/100 WBC (Bld) 0.6 % Normal 0.0-2.0 [facility] Comment on above: Performed By: #### 2 660154 #### [facility] [address] [place] [address] Basophils/Leukocytes Auto (Bld) [Pure # fraction] 0.0 E9/L Normal 0.0-0.2 [facility] Comment on above: Performed By: #### 2 [id number] #### [facility] [address] [place] [address] Eosinophils (Bld) [#/Vol] 0.2 E9/L Normal 0.0-0.5 [facility] Comment on above: Performed By: #### 2 095603 #### [facility] [address] [place] [address] Eosinophils/100 WBC (Bld) 2.4 % Normal 0.0-8.0 [facility] Comment on above: Performed By: #### 2 922762 #### [facility] [address] [place] [address] Erythrocyte distribution width (RBC) [Ratio] 17.6 % High 10.9-14.2 [facility] Comment on above: Performed By: #### 2 [id number] #### [facility] [address] [place] [address] Hematocrit (Bld) [Volume fraction] 37.1 % Normal 34.0-46.0 [facility] Comment on above: Performed By: #### 2 [id number] #### [facility] [address] [place] [address] Hemoglobin (Bld) [Mass/Vol] 12.4 g/dL Normal 12.0-16.0 [facility] Comment on above: Performed By: #### 2 268401 #### [facility] [address] [place] [address] Lymphocytes (Bld) [#/Vol] 1.5 E9/L Normal 1.0-4.0 [facility] Comment on above: Performed By: #### 2 671668 #### [facility] [address] [place] [address] Lymphocytes/100 WBC (Bld) 22.3 % Normal 14.0-50.0 [facility] Comment on above: Performed By: #### 2 928913 #### [facility] [address] [place] [address] MCH (RBC) [Entitic mass] 27.3 pg Normal 27.0-34.0 [facility] Comment on above: Performed By: #### 2 328544 #### [facility] [address] [place] [address] MCHC (RBC) [Mass/Vol] 33.4 g/dL Normal 31.4-36.0 [facility] Comment on above: Performed By: #### 2 787254 #### [facility] [address] [place] [address] MCV (RBC) [Entitic vol] 81.9 fL Normal 80.0-100.0 [facility] Comment on above: Performed By: #### 2 480623 #### [facility] [address] [place] [address] Monocytes (Bld) [#/Vol] 0.5 E9/L Normal 0.2-1.0 [facility] Comment on above: Performed By: #### 2 721336 #### [facility] [address] [place] [address] Neutrophils (Bld) [#/Vol] 4.6 E9/L Normal 2.0-7.5 [facility] Comment on above: Performed By: #### 2 718391 #### [facility] [address] [place] [address] Neutrophils/100 WBC (Bld) 67.7 % Normal 36.0-75.0 [facility] Comment on above: Performed By: #### 2 002763 #### [facility] [address] [place] [address] Platelet 483.0 E9/L Normal 150.0-500.0 [facility] Comment on above: Performed By: #### 2 207684 #### [facility] [address] [place] [address] Platelet mean volume (Bld) [Entitic vol] 7.1 fL Normal 6.4-10.8 [facility] Comment on above: Performed By: #### 2 159922 #### [facility] [address] [place] [address] RBC (Bld) [#/Vol] 4.5 E12/L Normal 4.3-5.9 [facility] Comment on above: Performed By: #### 2 421777 #### [facility] [address] [place] [address] WBC corrected for nucl RBC Auto (Bld) [#/Vol] 6.8 E9/L Normal 4.0-11.0 [facility] Comment on above: Performed By: #### 2 039302 #### [facility] [address] [place] [address] CHEMISTRYOrdered By: SYSTEM SYSTEM on 06-30-2024 Albumin [...] ml's: 100 Rectal Contrast Given? No Normal [facility] ED Clinical Summaryon 2023 ED Clinical Summary ED Clinical Summary [address] [address] ED Clinical Summary Person Information Name: ROLA AGUILAR [facility] Age: 28 Years : 1995 Sex: Female Language: South African PCP: NONE, XXXX Marital Status: Single Phone: [phone] Visit Id: Visit Reason: Weakness or fatigue; [...] 15:22:16 06/30/2024 15:22:16 06/30/2024 15:22:16 ADDRESS: [address] [phone] PHYS DOC NOTES: MEDICAL INFORMATION: Prescriptions Given: [...] Abscess Follow up: With: Address: When: XXXX [place] In 3 days 07/03/2024 Comments: Follow-up with your colorectal surgeon DIAGNOSIS: Crohn's disease; Rectal abscess Normal [facility] ED Patient Summaryon ED Patient Summary ED Patient Summary [place] [address] Patient Discharge Instructions Person Information Name: ROLA AGUILAR Age: 28 Years Arrival Date: 06/30/2024 11:05:49 Discharge Diagnosis: Crohn's disease; Rectal abscess Primary Care Physician: CON[place], XXCYNTHIA Provider Information Primary Provider: Harry Devine DO Advanced Registered Nurse Maternity:Puneet Proctor PA-C The exam and treatment you received in the Emergency Department were for an urgent problem and are not intended as complete care. It is important that you follow up with a doctor, nurse practitioner, or physician?s housekeeping assistant for ongoing care. If your symptoms become worse or you do not improve as expected and you are unable to reach your usual health care provider, you should return to the Emergency Department. We are available 24 hours a day. ROLA AGUILAR has been given the following list of patient education materials, prescriptions and follow-up instructions: Follow-up Instructions: With: Address: When: XXXX [place] In 3 days 07/03/2024 Comments: Follow-up with your colorectal surgeon In the event that this physician does not participate in your insurance network, please consult with your insurance company to find a nearby participating provider. Patient Education Materials: Anorectal Abscess A MESSAGE TO ALL PATIENTS REGARDING OPIOIDS PRESCRIPTION OPIOIDS: WHAT YOU NEED TO KNOW Prescription opioids can be used to help relieve xdzzxwlh-ht-jrmpae pain and are often prescribed following a [...] be struggling with addiction, tell your health adult care manager and ask for guidance or call [facility]?S National Helpline at 6-936-194-KVKF. [employer] (more content not included)... Normal [facility] Extra Blueon 06-30-2024 Tube Collected Plasma Yes Invalid Interpretation Code [facility] Comment on above: Performed By: #### 1 [id number] #### [facility] [address] [place] [address] HEMATOLOGYOrdered By: SYSTEM SYSTEM on 06-30-2024 Basophils/100 [...] 06-30-2024 Albumin [Mass/Vol] 2.7 g/dL Low 3.3-5.0 [facility] Comment on above: Performed By: #### 2 479347 #### [facility] [address] [place] [address] Albumin/Globulin (S) [Mass conc ratio] 0.6 Low 1.1-2.2 [facility] Comment on above: Performed By: #### 2 133118 #### [facility] [address] [place] [address] ALP [Catalytic activity/Vol] 136 Int._Unit/L High 21-98 [facility] Comment on above: Performed By: #### 2 [id number] #### [facility] [address] [place] [address] ALT No additional P-5'-P [Catalytic activity/Vol] 9 Int._Unit/L Normal 6-46 [facility] Comment on above: Performed By: #### 2 690533 #### [facility] [address] [place] [address] AST [Catalytic activity/Vol] 17 Int._Unit/L Normal 5-43 [facility] Comment on above: Performed By: #### 2 [id number] #### [facility] [address] [place] [address] Bilirubin [Mass/Vol] 0.5 mg/dL Normal 0.0-1.1 [facility] Comment on above: Performed By: #### 2 505090 #### [facility] [address] [place] [address] Bilirubin.direct [Mass/Vol] 0.1 mg/dL Normal 0.0-0.4 [facility] Comment on above: Performed By: #### 2 052681 #### [facility] [address] [place] [address] Bilirubin.indirect [Mass or moles/Vol] 0.4 mg/dL Normal 0.1-0.9 [facility] [facility] Comment on above: Performed By: #### 2 [id number] #### [facility] [address] [place] [address] Globulin (S) [Mass/Vol] 4.8 g/dL High 1.4-4.0 [facility] Comment on above: Performed By: #### 2 [id number] #### [facility] [address] [place] [address] Protein [Mass/Vol] 7.5 g/dL Normal 6.0-7.8 [facility] Comment on above: Performed By: #### 2 [id number] #### [facility] [address] [place] [address] Lipase Levelon 06-30-2024 Lipase [Catalytic activity/Vol] 29 U/L Normal 13-58 [facility] Comment on above: Performed By: #### 2 [id number] #### [facility] [address] [place] [address] eGFRon 06-30-2024 eGFR 125 mL/min/1.73 m2 Normal >=59 [facility] Comment on above: Performed By: #### 1 [id number] #### [facility] [address] [place] [address] CNPNon 05-13-2024 CNPN Telephone (GENSAV) ROLA AGUILAR ([id number]) 1995 F Date Time Provider Department 05/13/24 CANDIS LAUGHLIN During your visit today, we recorded the [...] - she has not returned the call Yannick Bowie 05/19/2024 10:19 AM Signed Called and spoke to patient, appt schd with Dr Thakkar on 06/19 in [place] 9:45a, pt aware of location. Thank you. [...] Status:Closed by CANDIS LAUGHLIN on 05/13/24 Normal [facility] B hCG Qualon 04-08-2024 Beta HCG ( test) Ql Negative Normal [facility] Comment on above: Performed By: #### 2 [id number] #### [facility] [address] [place] [address] BMPon 04-08-2024 Anion gap [Moles/Vol] 17 mmol/L High 6-16 [facility] Comment on above: Performed By: #### 2 479253 #### [facility] [address] [place] [address] Calcium [Mass/Vol] 8.8 mg/dL Low 8.9-11.1 [facility] Comment on above: Performed By: #### 2 [id number] #### [facility] [address] [place] [address] Chloride [Moles/Vol] 95 mmol/L Low 101-111 [facility] Comment on above: Performed By: #### 2 094529 #### [facility] [address] [place] [address] CO2 [Moles/Vol] 27 mmol/L Normal 21-31 [facility] Comment on above: Performed By: #### 2 [id number] #### [facility] [address] [place] [address] Creatinine [Mass/Vol] 0.8 mg/dL Normal 0.5-1.3 [facility] Comment on above: Performed By: #### 2 [id number] #### [facility] [address] [place] [address] Glucose [Mass/Vol] 101 mg/dL Normal 55-199 [facility] Comment on above: Performed By: #### 2 554285 #### [facility] [address] [place] [address] Potassium [Moles/Vol] 3.2 mmol/L Low 3.5-5.3 [facility] Comment on above: Performed By: #### 2 320706 #### [facility] [address] [place] [address] Sodium [Moles/Vol] 136 mmol/L Normal 135-145 [facility] Comment on above: Performed By: #### 2 602809 #### [facility] [address] [place] [address] Urea nitrogen [Mass/Vol] 9 mg/dL Normal 5-21 [facility] Comment on above: Performed By: #### 2 [id number] #### [facility] [address] [place] [address] Urea nitrogen/Creatinine [Mass ratio] 11 No Units Normal 10-20 [facility] Comment on above: Performed By: #### 2 [id number] #### [facility] [address] [place] [address] CBC w/ Auto Diffon 4 Basophils/100 WBC (Bld) 0.5 % Normal 0.0-2.0 [facility] Comment on above: Performed By: #### 2 567314 #### [facility] [address] [place] [address] Basophils/Leukocytes Auto (Bld) [Pure # fraction] 0.0 E9/L Normal 0.0-0.2 [facility] Comment on above: Performed By: #### 2 250504 #### [facility] [address] [place] [address] Eosinophils (Bld) [#/Vol] 0.1 E9/L Normal 0.0-0.5 [facility] Comment on above: Performed By: #### 2 827437 #### [facility] [address] [place] [address] Eosinophils/100 WBC (Bld) 1.0 % Normal 0.0-8.0 [facility] Comment on above: Performed By: #### 2 921877 #### [facility] [address] [place] [address] Erythrocyte distribution width (RBC) [Ratio] 16.2 % High 10.9-14.2 [facility] Comment on above: Performed By: #### 2 039813 #### [facility] [address] [place] [address] Hematocrit (Bld) [Volume fraction] 35.8 % Normal 34.0-46.0 [facility] Comment on above: Performed By: #### 2 577874 #### [facility] [address] [place] [address] Hemoglobin (Bld) [Mass/Vol] 12.2 g/dL Normal 12.0-16.0 [facility] Comment on above: Performed By: #### 2 038203 #### [facility] [address] [place] [address] Lymphocytes (Bld) [#/Vol] 0.8 E9/L Low 1.0-4.0 [facility] Comment on above: Performed By: #### 2 323693 #### [facility] [address] [place] [address] Lymphocytes/100 WBC (Bld) 12.5 % Low 14.0-50.0 [facility] Comment on above: Performed By: #### 2 412296 #### [facility] [address] [place] [address] MCH (RBC) [Entitic mass] 27.1 pg Normal 27.0-34.0 [facility] Comment on above: Performed By: #### 2 032291 #### [facility] [address] [place] [address] MCHC (RBC) [Mass/Vol] 34.0 g/dL Normal 31.4-36.0 [facility] Comment on above: Performed By: #### 2 440508 #### [facility] [address] [place] [address] MCV (RBC) [Entitic vol] 79.6 fL Low 80.0-100.0 [facility] Comment on above: Performed By: #### 2 514284 #### [facility] [address] [place] [address] Monocytes (Bld) [#/Vol] 1.2 E9/L High 0.2-1.0 [facility] Comment on above: Performed By: #### 2 241726 #### [facility] [address] [place] [address] Neutrophils (Bld) [#/Vol] 4.1 E9/L Normal 2.0-7.5 [facility] Comment on above: Performed By: #### 2 085060 #### [facility] [address] [place] [address] Neutrophils/100 WBC (Bld) 66.9 % Normal 36.0-75.0 [facility] Comment on above: Performed By: #### 2 767518 #### [facility] [address] [place] [address] Platelet 532.0 E9/L High 150.0-500.0 [facility] Comment on above: Performed By: #### 2 862150 #### [facility] [address] [place] [address] Platelet mean volume (Bld) [Entitic vol] 7.8 fL Normal 6.4-10.8 [facility] Comment on above: Performed By: #### 2 154076 #### [facility] [address] [place] [address] RBC (Bld) [#/Vol] 4.5 E12/L Normal 4.3-5.9 [facility] Comment on above: Performed By: #### 2 499550 #### [facility] [address] [place] [address] WBC corrected for nucl RBC Auto (Bld) [#/Vol] 6.1 E9/L Normal 4.0-11.0 [facility] Comment on above: Performed By: #### 2 734246 #### [facility] [address] [place] [address] CHEMISTRYOrdered By: Tony Espinal on 04-08-2024 Albumin [...] Chandler FINAL REPORT Dictated: 04/08/2024 1:29 pm Dajuan Bunn MD Signed (Electronic Signature): 04/08/2024 1:29 pm Signed by: Dajuan Bunn MD Transcribed by: CLARICE Technologist: ENRIQUE Technical Comments GFR (mL/min/1/73m2) na Contrast: Isovue 300 Contrast amount in ml's: 100 Normal [facility] ED Clinical Summaryon 2023 ED Clinical Summary ED Clinical Summary [place] [id number] ED Clinical Summary Person Information Name: ROLA AGUILAR [facility] Age: 28 Years : 1995 Sex: Female Language: South African PCP: NONE, XXXX Marital Status: Single Phone: [phone] Visit Id: Visit Reason: Blood in stool; [...] 04/08/2024 16:13:11 04/08/2024 16:13:11 04/08/2024 16:13:11 ADDRESS: [address] [place] [phone] PHYS DOC NOTES: MEDICAL INFORMATION: Prescriptions Given: Medications to Continue Taking That Have Changed [facility]/pharmacy #[id number], [address] [place], [place] [id number], [phone] START: dicyclomine (Bentyl 10 mg Cap) 1 [...] promethazine (promethazine (more content not included)... Normal [facility] ED Note-Physicianon 04-08-20 ED Note-Physician ED Note-Physician Basic Information Time Seen: Ramesh LEDESMA, Wil Arreola. 04/08/2024 11:37 Chief Complaint pt c/o lower [...] and Complexity of Problems Differential Diagnosis: [] [facility] Data External documents reviewed: [] My [...] day(s), # 28 cap(s), Refills(s) 0, Pharmacy: [facility]/pharmacy #[id number], 167, cm, 04/08/24 11:39:00 EDT, Height/Length [...] Nausea/Vomiting, # 12 tab(s), Refills(s) 0, Pharmacy: [facility]/pharmacy #[id number], 167, cm, 04/08/24 11:39:00 EDT, Height/Length [...] prednisone., # 72 tab(s), Refills(s) 0, Pharmacy: [facility]/pharmacy #[id number], 167, cm, 04/08/24 11:39: (more content not included)... Normal [facility] Comment on above: Result Comment: Elec tronically Signed By: Wil Chandler PA-C\.br\Date and Time Signed: 04/08/24 15:26 EDT\.br\Electronically Co-Signed By: Carolyn Mcmahon M.D.\.br\Date and Time Co-Signed: 04/08/24 17:46 EDT ED Patient Summaryon ED Patient Summary ED Patient Summary [place] [id number] Patient Discharge Instructions Person Information Name: ROLA AGUILAR Age: 28 Years Arrival Date: 04/08/2024 11:34:25 Discharge Diagnosis: Abdominal pain; Crohn's disease Primary Care Physician: NONE, XXXX Provider Information Primary Provider: Carolyn Mcmahon M.D. Advanced Registered Nurse Maternity:None The exam and treatment you received in the Emergency Department were for an urgent problem and are not intended as complete care. It is important that you follow up with a doctor, nurse practitioner, or physician?s housekeeping assistant for ongoing care. If your symptoms [...] Follow-up Instructions: With: Address: When: Shilpa العلي [address] , [facility] [address] [place], [place] [id number] [facility] (9) In 3 days 04/11/2024 Comments: Call Dr [...] opioids can be used to help relieve fcretchz-ph-zxhplv pain and are often prescribed following a [...] be struggling with addiction, tell your health adult care manager and as (more content not included)... Normal [facility] HEMATOLOGYOrdered By: Nellie Drake on 04-08-2024 Band form neutrophils/100 WBC (Bld) 17 % High 0 - 6 % FT Heme S Basophils/100 WBC (Bld) 0.5 % Normal 0.0 - 2.0 % [facility] Heme S Basophils/100 WBC (Bld) 1.0 % [...] 04-08-2024 Albumin [Mass/Vol] 3.5 g/dL Normal 3.3-5.0 [facility] Comment on above: Performed By: #### 2 [id number] #### [facility] [address] [place] [address] Albumin/Globulin (S) [Mass conc ratio] 0.9 Low 1.1-2.2 [facility] Comment on above: Performed By: #### 2 126167 #### [facility] [address] [place] [address] ALP [Catalytic activity/Vol] 103 Int._Unit/L High 21-98 [facility] Comment on above: Performed By: #### 2 188716 #### [facility] [address] [place] [address] ALT No additional P-5'-P [Catalytic activity/Vol] 10 Int._Unit/L Normal 6-46 [facility] Comment on above: Performed By: #### 2 910476 #### [facility] [address] [place] [address] AST [Catalytic activity/Vol] 8 Int._Unit/L Normal 5-43 [facility] Comment on above: Performed By: #### 2 751460 #### [facility] [address] [place] [address] Bilirubin [Mass/Vol] 0.5 mg/dL Normal 0.0-1.1 [facility] Comment on above: Performed By: #### 2 340329 #### [facility] [address] [place] [address] Bilirubin.direct [Mass/Vol] 0.1 mg/dL Normal 0.0-0.4 [facility] Comment on above: Performed By: #### 2 664065 #### [facility] [address] [place] [address] Bilirubin.indirect [Mass or moles/Vol] 0.4 mg/dL Normal 0.1-0.9 [facility] Comment on above: Performed By: #### 2 686993 #### [facility] [address] [place] [address] Globulin (S) [Mass/Vol] 4.0 g/dL Normal 1.4-4.0 [facility] Comment on above: Performed By: #### 2 851897 #### [facility] [address] [place] [address] Protein [Mass/Vol] 7.5 g/dL Normal 6.0-7.8 [facility] Comment on above: Performed By: #### 2 261348 #### [facility] [address] [place] [address] Lipase Levelon 04-08-2024 Lipase [Catalytic activity/Vol] 25 U/L Normal 13-58 [facility] Comment on above: Performed By: #### 2 557213 #### [facility] [address] [place] [address] Manual Diffon 04-08-2024 Band form neutrophils/100 WBC (Bld) 17 % High 0-6 [facility] Comment on above: Performed By: #### 2 659850 #### [facility] [address] [place] [address] Basophils/100 WBC (Bld) 1.0 % Normal 0.0-2.0 [facility] Comment on above: Performed By: #### 2 454809 #### [facility] [address] [place] [address] Eosinophils/100 WBC (Bld) 4.0 % Normal 0.0-8.0 [facility] Comment on above: Performed By: #### 2 594885 #### [facility] [address] [place] [address] Lymphocytes/100 WBC (Bld) 17.0 % Normal 14.0-50.0 [facility] Comment on above: Performed By: #### 2 116785 #### [facility] [address] [place] [address] Monocytes/100 WBC (Bld) 12.0 % Normal 4.0-14.0 [facility] Comment on above: Performed By: #### 2 534732 #### [facility] [address] [place] [address] RBC size Nom (Bld) NORMAL Normal [facility] Comment on above: Performed By: #### 2 257427 #### [facility] [address] [place] [address] Segmented neutrophils/100 WBC (Bld) 49.0 % Normal 36.0-75.0 [facility] Comment on above: Performed By: #### 2 421271 #### [facility] [address] [place] [address] Pre-Arrival Noteon 4 Pre-Arrival Note Pre-Arrival Note [facility]-Arrival Summary [facility] Current Date: 04/08/2024 11:35:52 EDT Gender: Female Date of : Age: 28 Pre-Arrival Type: EMS ETA: 04/08/2024 11:56:00 EDT Primary Care Physician: Presenting Problem: n/v/d Pre-Arrival User: Meeta Arora Referring Source: Location: [place] Completion Date/Time: 04/08/2024 11:28:00 [facility] Emergency Department Pre-Hospital Report Form Vital Signs: 103/78 HR 120 RR 15 98% RA Pre-Hospital Report: hx of crohns, blood in stool Treatment in Route: 22 L hand started fluids 4mg zofran Response to Treatment: Misc. Issues: Normal [facility] SEROLOGYOrdered By: Fabienne pierson on 04-08-2024 Beta HCG ( test) Ql Negative (04/08/24 11:55 AM) Normal [facility] Man Sero eGFRon 04-08-2024 eGFR 102 mL/min/1.73 m2 Normal >=59 [facility] Comment on above: Order Comment: Order added by Discern Expert. Performed By: #### 1 [id number] #### [facility] [address] [place] [address] [facility] ROLA AGUILAR ([id number]) 1995 F Date Time Provider Department 04/01/24 MADDIE SEVILLA [facility] During your visit today, we recorded [...] next steps that would be appreciated! Maddie Sevilla RN 04/01/2024 10:40 AM Signed Received message from pharmacy, confirmed that patient is okay to start pens at week 6, as in therapy plan. Pharmacy team stated they will call patient end of March to set up pen pickup/shipment. Patient also verbalized to me that she would be requesting in the meantime her prescription be switched to [facility] d/t proximity to home. Allergies As of Date: 04/01/2024 Noted Allergy Reaction HYDROMORPHONE 05/26/2023 9 - Itching Date Reviewed: 04/01/2024 Reviewed by: Maddie Sevilla RN - Fully Assessed Prescriptions as of [...] Encounter Status:Closed by MADDIE SEVILLA on 04/01/24 [facility] 03-25-2024 CNPN Telephone (GANOM) ROLA AGUILAR ([id number]) 1995 F Date Time Provider Department 03/25/24 MADDIE SEVILLA [facility] During your visit today, we recorded the following information about you: Maddie Sevilla RN 03/25/2024 3:06 PM Signed Called patient re: missed appt for entyvio infusion. Left voicemail reminding patient of loading dose schedule, requesting a return call to us AND phone number provided to [facility] [place] [place] infusion center. Maddie Sevilla RN 03/31/2024 1:09 PM Signed Called patient, 2nd attempt regarding missed entyvio appt. Spoke with her and she would like to continue with induction. To come in for 2nd dose tomorrow 04/01 @ 0900. [facility] team - please put her on schedule. Dr. Humphries/Brittny - she is now a week late on her 2nd dose d/t no show, instead of loading at 0 AND 2 weeks it will be 0 AND 3 weeks prior to [facility]. Just wanted to confirm that was appropriate vs. restarting induction or other plan moving forward. Thanks. Ira Wilder 03/31/2024 1:33 PM Signed Added to the schedule Lee Ann Humphries DO 04/01/2024 10:00 AM Signed Ok to continue with loading infusion as planned [facility] to [facility] Allergies As of Date: 03/25/2024 Noted Allergy [...] Encounter Status:Closed by MADDIE SEVILLA on 03/25/24 [facility] Coding Summary.on 03-12-2024 Coding Summary. XWJLKuyq93FTc6vLc+PG h lYWQ+HF5ABAPkA18uhULa dA2qB7VQVQkQZbfzVTTPE RuLTgRzwiQiNL7snTLhTQ Ju IC8+AT5jZSKyYyadaZIrq 2Z0lQA8C36fij0iQSvbwA C0XMJaJrWeubqsx3xxzIh 6IDcuNmluOyBt GAWquY24URX8wE32Nc69l DKgdBOhb2cuuHb5LuNiHT MaQFT1dXuyXAufc2MzCRW xH39orQYwa3V9 VZZnwAmyeFEnCkDhqKT1r T0qNGgqxfvhk0bicjynLs h1un68qOVsx9Y3mLF1P3Z qfmY9JTKfpWJe CymfuHXPjX5yutlio6lky tuwMzIxVNYgBMg1VWb7SS JqeZqrYeIwAG90OIX8TCE qafXyN0YbIAYa sZihLnM1g2M0He4BP2QLV ysnV0XGSKGOUSoeqVI+PC 55tj72V6BzUnbiKao0DTL zOKI4gFI8rP9l OSAzOXdkg2D5rWY7E3Jbb dOtdd5es1xgSNAjGDhkU5 0lpUIxx8D7ALEokXH9CPZ vkTmfGqMdyF14 Oyc+VKVfdKcuw1EhAfbkn 1blu4ipsTc9VhkjVMJmgn GkoOiuREQ9i2LjNm7bVDY peKI7pPY1oA1h TsCvGgQ9FZsmJ837JxOyx SPuXuxxS24bM3KplJO+PH JkIrx8CXWmoTyvJM6bQ5G hZGRpbmctbGVm vEdzLW5sLWVzmtmlGRRwk E0cNCQrA3y5FuOlCmP0SY blH9DuRNXcwxoyAc35qV1 aHmXmQfG3YOvf F8ZbbkN9LPJalYNnBEkbY JN7C51nk8O5WAGjOZEmMM H5kBS2fY4xmRosqfllvZK mdDsgdmVydGlj GJajWYdqS116QDQugVxnF kNvZGluZyBEYXRlOiAgMD YvMjAvMjAyNDwvdGQ+PHR mCHN1jMuzHBAr kRSuIQkcAd2pxSazmPzjM P7gAQGmeapnISOscE9nDZ OqyTLsgTuoUA0yATZyxep be289NvTfBCF6 GYKuhOFpN1WrtW7zWrHpU YUxMYMpF9PazHXrNGcaY3 88NHeoHqS7NKFylbTrI4Q sLWFsaWduOiB0 z3G9Jo7Fi5JlsgksR5Trf KXmOrMfJranTCy0W4LaMk wvdHI+ZZ98TDKhSC10VPf 1PBH2rLggWCpt IANlO1McpC5cYiLyUADfD GRkOyc+PHRhYmxlIHdpZH RoPScxMDAlJyBzdHlsZT0 mJy1lTGNsXEEj rUuowKWjOiPzx4qgTUFwF FxbBC8diFhkU4DbcBY9VD Clv3g4Me40B80nO1TlzWN +CRReqZS9tMP6 yA7zSaZuElB1RTlyD582M nFdrPDjUsjue2zts2xtsY o2QkN5CVXyjvNwcZizIXF 9e1FkQv68Z71h IHdpZHRoPSIxNSUiIHZhb Zxdvt2opE9aEa2+PGNvbC B5tPO7hF8tNvIxOqZ3LVe wX756BrXjxKYy Rvfwp6pvr1bplVr0QcEkQ INbubRjwPdqCKB3a8ApMj 83I8CkmKyrg6TmNeg7rc8 6zBBhv0I9cKW3 O7XqVHOzutxnoCFcoYlhV Q9gZLSghybrVGXxvJ2eDC YwL3b5FvKsYnY0NIphJ6S liuN6KPPzqZGz PGFqqUIUkZ6zfoltj6wpw jasHsVyGKLxPQw4ZOz7VS SkbQfkSwQnOVN5JdL0TQB 4rKVunD9bbBhp bybolF2wLsa+QBN2yGMzu ZFHUL2qUipdfDZ+PHRkIH S7pOusHMkjDWPseH8cTUG aF6h3AnUzTjA2 OPcrO2CksqY4IGMnzTZnL VDktFTKvC0mkdicv7xomf qlKaApRPFaCIm0QPk3TQC saWduOiBsZWZ0 WjY6UPF1sDRpeD9ubZour wrcuO5mNrx+QmlydGggRG I6VLj2C3WrUrp1RBSryPt hYI1mhVRkFKpe Fp5clIipuUmiOB0vHFLul wccf009IbWqi9anGZYzwM MbCAmrDZY0Z66aj7R1NHY wLZCiAEK0lPV1 jC2wrYghtdvbpCQpgQprn uTeaBhkLCcdNQbwI137RS VhyWogLwMxDHa2A2OjMox 1XQAwgSvcGV7j lWCuZUtsIp4rhPujcUptC V8qVEEnpjbvq971PhDrh9 klTOCczVFfLYtrYLN4M21 bp8G1CNOxWNPq SXV8bLA8kI2gtIsklztwn GVmdDsgdmVydGljYWwtYW oeA537SDHpvLksKlHnzKg 7G7ClRih5HOMl fGugDU8ohKCzRTsoQn1ld HumdIhvFM0kGXJjcxltf4 58PtIxu9atEQFtqKXmOOk fZTU8V82zg3L3 ISZsXSMtFIM7eMI7rO2ab GlnbjogbGVmdDsgdmVydG ruOOfpXLhcG754PEWbzMs nPlBhdGllbnQg WNkxZGr0U9QgKssbiRF+P Z80HMImAR29iGVfjCYmx1 rgwVf7UkMfJJHoJVB7iJk gFMeis6WqLVKy Z64oyKJvu4L7EDZrlPakb PIpCwUhkYO2pR6cAMvmwa lmz3xlksdjDcsdz4xyov5 2xU85U12lYEti ZHRoPSIzMCUiIHZhbGlnb f5nhL6iBj3+CLZagXN9aB E9wM3wZNPlOpN2PLuuU49 9InRvcCIvPjxj h0zbt6zthVd6GuK1LKVau vXxnWvxWMS2y8LbOe36G9 9sIHdpZHRoPSIyMCUiIHZ brVrjdc3vdS8v Ii8+WACrwEH4aXL1aE6hW lCdMhH1KItlQ085JvWnbE TvTcnoS78gW8IviBD+PHR xYwt2FUDptHld NZ6xfWYcWQjuIj7gLGM5U zOkNeWgHLdeU4FdUMIjok znxyofoZO2NXHpPBMnlO9 5Qf5vvMrkNWFz cGSIgS4uesbbx6syjqmqU mKtNXEhHQs7YSc0DFTejU rkGnNbFOJ1NeZ3GYN4nFJ sxE5iuYunkekd pS1sA2AjEMYwgpryHs07j T2rBtHfVwM1YGtfJps+SE TLD03RIRGXZlcBDSUFWWF 1F7KiThg7RSBh aIzgST7jaCCgWNtgNp2ib KkxbPpmHN9jWTPbfwhsPP SrjS3sBKUijZFhkNsgLL4 wCBQbgwylf172 JkIbIRU9CAUimCReM0Brd C2zGtAiJZGjHEMbZ1AjdM GvJLtwW621MTtjLpE7IGR ddtCiC7HrNGAf rBkoElG4a4C9Ld2mJP8eB D3mKPx7TC41TC45lHXif0 B1kNT6H9LzUUSjsqhlqzb jvYG8TAUtLFRk sF56wCLsCBhwTn4ic1D8f 762VKOsDBSdsW42Yk8rpT egJRSxkUCWcF9tkmvyl6u vcjogIzAwMDAw SGi3XTq5WBLmlBxyDaLeL NN0WvU8BCI7cQQgeH5eiR siyxjjyC0fYhs+MjggWWV bvhY3O1YfOea3 WSHduGjhDB8sqEMsURsuI a5iqArkaMaqEX8iYMUhvt tgCHQfdZ4uRBIhrASikDv vDJ9gQEDxftwb f398BrEnQTQ5SJDsqMPsF 5HviY8nRpWxKPKaTFWgP3 UnyEEbMZdtX643KJxnMeH 8ZENelhKtU6Kh JCGdaRkpYxC0x3C6Ps6RE W3arTD1D9PjJda5ZQSnyG aeUH5foSHgJExcEp0teIb vsOohYE5qZGMl vwcgEMTxkC4qIUOibDUpj TkpGU8eIDUhglfvr956Of RsWZT6WGIskWGuM9WwhX5 yOiAjMDAwMDAw V9EsiVHkNWsnN584ZLcgN hC4VZVtyzFkV8NuTEJovM oeYzA7g9L7Gi8EdCWnS2M mF9j8E0QrSnlw dHI+BJ59UOUcYJ63dUGrn PZwt7jdkWf2GeTaZHGdNB M1pTymONfzg9BlAXErY50 jqFHqw7X6NLPy sWbayBIwOtBevNE7xP0aK Daaaeqns0gwzuyaEywwd4 awyr12dD15Q24iQYfnKGR oPSIzMCUiIHZh fFxdcw2cfU4xMl0+PGNvb XW7aSB1mE3bAqJuZlY5LB mhR772XxZrlSNaZokrd6o hm2auuHc3SySo OHMuneRseFklZBM4x6MzO h80J79wVGyyKVAbXQSoQE HuZGQesOwamk3akW2dLr4 +NU8bl9wupt28 wQ11uGA+IXRaCJP8dCnjP PvgDOBsqB7lKHatOgK8LB KjEjVbbC48mJHvNJlkTx0 wmFeswOsyKQ2s ATScgwtlf172RqLhr0uzZ PIvzIDtEBnxUQA6B57ac2 P9WORzFYItEGL5cPD3cM5 hbGlnbjogbGVm dDsgdmVydGljYWwtYWxpZ 792UPSbrZkrAoHgqBCrW1 epcvQFAW2aSyenfKM+PHR gLRI3zHkqZVxg LGMozG4yANRyH1j1WrWpG zG7VHdiR9QwojT0FYQfaU TsJPMvcIYOlZ9vsmxyz7g vcjogIzAwMDAw RFs0HLe0RALqxVxdNfRuE QS7AtU5TVW0sUJwjB2kdG fevnlhcY4sJyv+RklOOjw vdGQ+PHRkIHN0 qSpsLBdbVGDtkF5qKZXhW 7v9MuPhFsT3ZTikW3Vpdl U7EXEmdCMyUKCgyMJGqX8 pwfjks8txnmim LrQkLMWtCJg7MRg6BJSsy OixEwVlONK8UyP7IDG7xE SksZ9tlBovnwxhbN5tMfy +TVJOOjwvdGQ+ QQSsFAL2hLrkFRodJNObp E9yOAGxJ3e1HtMmHyU2DR jaJ1XkbyG2NSQjzETuAJU coKQUyS8rvtau s6akegmhOwDcGCHhHWy9T Nm9NXUweLzoDbXbINA8Dh K5XEM3sSTwzN9ouVzlikb ohI7eAor+UGF5 HXX2XZ59BE79O0VsGnytx GFibGU+PHRhYmxlIHdpZH RoPScxMDAlJyBzdHlsZT0 gBa5hCCWfYUGm bGxhcHNlOiBjb (more content not included)... Normal [facility] BMPon 03-08-2024 Anion gap [Moles/Vol] 12 mmol/L Normal -16 [facility] Comment on above: Performed By: #### 2 [id number] #### [facility] [address] [place] [address] Calcium [Mass/Vol] 8.7 mg/dL Low 8.9-11.1 [facility] Comment on above: Performed By: #### 2 [id number] #### [facility] [address] [place] [address] Chloride [Moles/Vol] 103 mmol/L Normal 101-111 [facility] Comment on above: Performed By: #### 2 [id number] #### [facility] [address] [place] [address] CO2 [Moles/Vol] 24 mmol/L Normal 21-31 [facility] Comment on above: Performed By: #### 2 [id number] #### [facility] [address] [place] [address] Creatinine [Mass/Vol] 0.7 mg/dL Normal 0.5-1.3 [facility] Comment on above: Performed By: #### 2 [id number] #### [facility] [address] [place] [address] Glucose [Mass/Vol] 93 mg/dL Normal 55-199 [facility] Comment on above: Performed By: #### 2 [id number] #### [facility] [address] [place] [address] Potassium [Moles/Vol] 3.7 mmol/L Normal 3.5-5.3 [facility] Comment on above: Performed By: #### 2 [id number] #### [facility] [address] [place] [address] Sodium [Moles/Vol] 135 mmol/L Normal 135-145 [facility] Comment on above: Performed By: #### 2 [id number] #### [facility] [address] [place] [address] Urea nitrogen [Mass/Vol] 8 mg/dL Normal 5-21 [facility] Comment on above: Performed By: #### 2 [id number] #### [facility] [address] [place] [address] Urea nitrogen/Creatinine [Mass ratio] 11 No Units Normal 10-20 [facility] Comment on above: Performed By: #### 2 [id number] #### [facility] [address] [place] [address] CBC w/ Auto Diffon 4 Basophils/100 WBC (Bld) 0.4 % Normal 0.0-2.0 [facility] Comment on above: Performed By: #### 2 [id number] #### [facility] [address] [place] [address] Basophils/Leukocytes Auto (Bld) [Pure # fraction] 0.0 E9/L Normal 0.0-0.2 [facility] Comment on above: Performed By: #### 2 [id number] #### [facility] [address] [place] [address] Eosinophils (Bld) [#/Vol] 0.0 E9/L Normal 0.0-0.5 [facility] Comment on above: Performed By: #### 2 [id number] #### [facility] [address] [place] [address] Eosinophils/100 WBC (Bld) 0.2 % Normal 0.0-8.0 [facility] Comment on above: Performed By: #### 2 [id number] #### [facility] [address] [place] [address] Erythrocyte distribution width (RBC) [Ratio] 16.8 % High 10.9-14.2 [facility] Comment on above: Performed By: #### 2 [id number] #### [facility] [address] [place] [address] Hematocrit (Bld) [Volume fraction] 35.2 % Normal 34.0-46.0 [facility] Comment on above: Performed By: #### 2 [id number] #### [facility] [address] [place] [address] Hemoglobin (Bld) [Mass/Vol] 11.8 g/dL Low 12.0-16.0 [facility] Comment on above: Performed By: #### 2 [id number] #### [facility] [address] [place] [address] Lymphocytes (Bld) [#/Vol] 0.8 E9/L Low 1.0-4.0 [facility] Comment on above: Performed By: #### 2 092712 #### [facility] [address] [place] [address] Lymphocytes/100 WBC (Bld) 12.8 % Low 14.0-50.0 [facility] Comment on above: Performed By: #### 2 [id number] #### [facility] [address] [place] [address] MCH (RBC) [Entitic mass] 27.1 pg Normal 27.0-34.0 [facility] Comment on above: Performed By: #### 2 [id number] #### [facility] [address] [place] [address] MCHC (RBC) [Mass/Vol] 33.5 g/dL Normal 31.4-36.0 [facility] Comment on above: Performed By: #### 2 [id number] #### [facility] [address] [place] [address] MCV (RBC) [Entitic vol] 80.9 fL Normal 80.0-100.0 [facility] Comment on above: Performed By: #### 2 [id number] #### [facility] [address] [place] [address] Monocytes (Bld) [#/Vol] 0.6 E9/L Normal 0.2-1.0 [facility] Comment on above: Performed By: #### 2 055229 #### [facility] [address] [place] [address] Neutrophils (Bld) [#/Vol] 4.7 E9/L Normal 2.0-7.5 [facility] Comment on above: Performed By: #### 2 235919 #### [facility] [address] [place] [address] Neutrophils/100 WBC (Bld) 77.2 % High 36.0-75.0 [facility] Comment on above: Performed By: #### 2 442136 #### [facility] [address] [place] [address] Platelet 330.0 E9/L Normal 150.0-500.0 [facility] Comment on above: Performed By: #### 2 [id number] #### [facility] [address] [place] [address] Platelet mean volume (Bld) [Entitic vol] 7.4 fL Normal 6.4-10.8 [facility] Comment on above: Performed By: #### 2 [id number] #### [facility] [address] [place] [address] RBC (Bld) [#/Vol] 4.3 E12/L Normal 4.3-5.9 [facility] Comment on above: Performed By: #### 2 615863 #### [facility] [address] [place] [address] WBC corrected for nucl RBC Auto (Bld) [#/Vol] 6.1 E9/L Normal 4.0-11.0 [facility] Comment on above: Performed By: #### 2 855267 #### [facility] [address] [place] [address] CHEMISTRYOrdered By: SYSTEM SYSTEM on 03-08-2024 Albumin [...] 30.3 s Normal 25.1 - 36.5 second(s) [facility] Auto Coag Comment on above: Interpretive Data: [...] obtained from a study by katie Vinson alAna prepared from 1437 samples obtained at 7 different centers using the same coagulation reagent and instrumentation as [facility]. Currently there are no coagulation studies available worldwide for children to 14 days, and no normal ranges. Heparin therapeutic range (represented by Anti-Factor Xa activity of 0.2 - 0.4 U/mL) corresponds to PTT of 56.6 - 109.0 sec. INR Coag (PPP) [Relative time] 1.10 {INR} Invalid Interpretation Code [facility] Comment on above: Interpretive Data: I NR results are specifically intended to assess patients stabilized on long-term Anticoagulation therapy suggested INR s Less Intensive Anticoagulation 2.0 3.0 Conventional Range 3.0 4.5 PT Coag (PPP) [Time] 12.3 s Normal 9.4 - 1 2.5 second(s) [facility] Auto Coag Comment on above: Interpretive Data: [...] the same coagulation reagent and instrumentation as [facility]. Currently there are no coagulation studies available worldwide for children to 14 days, and no normal ranges. CT Abdomen/Pelvis w/ Contras sg 03-08-2024 CT Abdomen/Pelvis w/ Contrast Exam Date/Time: [...] ml's: 100 Rectal Contrast Given? No Normal [facility] Consent for Treatmenton 02-21 Consent for Treatment [id number] Normal [facility] Discharge Instructionson Discharge Instructions [id number] Normal [facility] ED Clinical Summaryon 2023 ED Clinical Summary [place] [id number] ED Clinical Summary Person Information Name: ROLA AGUILAR [facility] Age: 28 Years : 1995 Sex: Female Language: [place] African PCP: NONE, XXXX Marital Status: Single Phone: [phone] Visit Id: Visit Reason: Diarrhea; Nausea; Abdominal [...] 03/08/2024 15:41:51 03/08/2024 15:41:51 03/08/2024 15:41:51 ADDRESS: [address] [place] [id number] PHYS DOC NOTES: MEDICAL INFORMATION: Prescriptions Given: New Medications [facility]/pharmacy #[id number], [address], [place] [id number], [phone] acetaminophen-oxycodo ne (Percocet 5 mg-325 mg oral tablet) 1 Tablets By Mouth every 6 hours as needed as needed for pain. Refills: 0. Medications to Continue Taking That Have Changed [id number] [address], [place] [id number], [phone] START: predniSONE (predniSONE 10 mg Tab) Take [...] 1:Abdominal pain; 2:Exacerbation of Crohn's disease Normal [facility] ED Note-Physicianon 03-08-20 ED Note-Physician Basic [...] patient states that she is approved for [employer]. She is currently on prednisone 20 mg [...] and Complexity of Problems Differential Diagnosis: [] [facility] Data External documents reviewed: [] My [...] needed for pain, 12 tab(s), Refill(s) 0, [facility]/pharmacy #[id number], 167, cm, 03/08/24 9:51:00 EDT, Height/Length [...] daily, # 72 tab(s), Refills(s) 0, Pharmacy: [facility]. promethazine 25 mg + Sodium Chloride 0.9% [...] Chloride 0.9 (more content not included)... Normal [facility] Comment on above: Result Comment: Elec tronically Signed By: Carolyn Mcmahon M.D..br\Date and Time Signed: 03/08/24 18:26 EDT ED [...] these instructions at home: Medicines ? Take awtj-pkw-vghpppb and prescription medicines only as told by [...] your condition for any changes. ? Take ozvl-cbo-axzxajg and prescription medicines only as told by [...] provider. Document Revised: 10/28/2020 Document Reviewed: 01/18/2020 [employer] Patient Education ? 2022 [employer]. Immunology Crohn's Disease Crohn's disease is a [...] sample tests. (more content not included)... Normal [facility] ED Patient Summaryon 024 ED Patient Summary [place] [id number] Patient Discharge Instructions Person Information Name: ROLA AGUILAR Age: 28 Years Arrival Date: 03/08/2024 09:39:02 Discharge Diagnosis: 1:Abdominal pain; 2:Exacerbation of Crohn's disease Primary Care Physician: NONE, XXXX Provider Information Primary Provider: Carolyn Mcmahon M.D. Advanced Registered Nurse Maternity:None The exam and treatment you received in the Emergency Department were for an urgent problem and are not intended as complete care. It is important that you follow up with a doctor, nurse practitioner, or physician?s housekeeping assistant for ongoing care. If your symptoms [...] opioids can be used to help relieve qnfmvrdy-uv-dskqrb pain and are often prescribed following a [...] be struggling with addiction, tell your health adult care manager an (more content not included)... Normal [facility] HEMATOLOGYOrdered By: SYSTEM SYSTEM on 03-08-2024 [...] 03-08-2024 Albumin [Mass/Vol] 3.7 g/dL Normal 3.3-5.0 [facility] Comment on above: Performed By: #### 2 [id number] #### [facility] [address] [place] [address] Albumin/Globulin (S) [Mass conc ratio] 1.0 Low 1.1-2.2 [facility] Comment on above: Performed By: #### 2 [id number] #### [facility] [address] [place] [address] ALP [Catalytic activity/Vol] 94 Int._Unit/L Normal 21-98 [facility] Comment on above: Performed By: #### 2 [id number] #### [facility] [address] [place] [address] ALT No additional P-5'-P [Catalytic activity/Vol] 11 Int._Unit/L Normal 6-46 [facility] Comment on above: Performed By: #### 2 [id number] #### [facility] [address] [place] [address] AST [Catalytic activity/Vol] 9 Int._Unit/L Normal 5-43 [facility] Comment on above: Performed By: #### 2 [id number] #### [facility] [address] [place] [address] Bilirubin [Mass/Vol] 0.3 mg/dL Normal 0.0-1.1 [facility] Comment on above: Performed By: #### 2 [id number] #### [facility] [address] [place] [address] Bilirubin.direct [Mass/Vol] 0.0 mg/dL Normal 0.0-0.4 [facility] Comment on above: Performed By: #### 2 [id number] #### [facility] [address] [place] [address] Bilirubin.indirect [Mass or moles/Vol] 0.3 mg/dL Normal 0.1-0.9 [facility] Comment on above: Performed By: #### 2 209102 #### [facility] [address] [place] [address] Globulin (S) [Mass/Vol] 3.7 g/dL Normal 1.4-4.0 [facility] Comment on above: Performed By: #### 2 [id number] #### [facility] [address] [place] [address] Protein [Mass/Vol] 7.4 g/dL Normal 6.0-7.8 [facility] Comment on above: Performed By: #### 2 [id number] #### [facility] [address] [place] [address] Lipase Levelon 03-08-2024 Lipase [Catalytic activity/Vol] 31 U/L Normal 13-58 [facility] Comment on above: Performed By: #### 2 [id number] #### [facility] [address] [place] [address] PT & PTTon 03-08-2024 aPTT Coag (PPP) [Time] 30.3 second(s) Normal 25.1-36.5 [facility] Comment on above: Result Comment: Para [...] the same coagulation reagent and instrumentation as [facility]. Currently there are no coagulation studies available worldwide for children to 14 days, and no normal ranges. Heparin therapeutic range (represented by Anti-Factor Xa activity of 0.2 - 0.4 U/mL) corresponds to PTT of 56.6 - 109.0 sec. Performed By: #### 1 [id number] #### [facility] [address] [place] [address] INR Coag (PPP) [Relative time] 1.10 {INR} Invalid Interpretation Code [facility] Comment on above: Result Comment: INR results are specifically intended to assess patients stabilized on long-term Anticoagulation therapy suggested INR?s ?Less Intensive Anticoagulation? 2.0 ? 3.0 Conventional Range 3.0 ? 4.5 Performed By: #### 1 [id number] #### [facility] [address] [place] [address] PT Coag (PPP) [Time] 12.3 second(s) Normal 9.4-12.5 [facility] Comment on above: Result Comment: 15 [...] the same coagulation reagent and instrumentation as [facility]. Currently there are no coagulation studies available worldwide for children to 14 days, and no normal ranges. Performed By: #### 1 [id number] #### [facility] [address] [place] [address] SEROLOGYOrdered By: Rosalba Cadet on 03-08-2024 HCG.beta subunit (U) [Moles/Vol] Negative Normal [facility] Man Sero U BetaHcg Qualon 03-08-2024 HCG.beta subunit (U) [Moles/Vol] Negative Normal [facility] Comment on above: Performed By: #### 2 [id number] #### [facility] [address] [place] [address] UA with Cult [employer] 03-08-20 24 Bacteria Auto Ql (U) Trace Normal Trace Fish [facility] Comment on above: Performed By: #### 4 [id number] #### [facility] [address] [place] [address] Bilirubin Ql (U) Negative Normal Negative [facility] Comment on above: Performed By: #### 4 [id number] #### [facility] [address] [place] [address] Clarity (U) Clear Normal Clear [facility] Comment on above: Performed By: #### 4 [id number] #### [facility] [address] [place] [address] Color (U) Colorless Abnormal Yellow [facility] Comment on above: Result Comment: Micr oscopic readings are only performed on those samples that meet specific criteria set forth by [facility]. Performed By: #### 4 [id number] #### [facility] [address] [place] [address] Epithelial cells.squamous Auto (Urine sed) [#/Area] 0-2 Invalid Interpretation Code [facility] Comment on above: Performed By: #### 4 [id number] #### [facility] [address] [place] [address] Glucose Ql (U) Negative Normal Negative [facility] Comment on above: Performed By: #### 4 [id number] #### [facility] [address] [place] [address] Hemoglobin Auto test strip (U) [Mass/Vol] Negative Normal Negative [facility] Comment on above: Performed By: #### 4 [id number] #### [facility] [address] [place] [address] Ketones Auto test strip Ql (U) Negative Normal Negative [facility] Comment on above: Performed By: #### 4 [id number] #### [facility] [address] [place] [address] Leukocyte esterase Auto test strip Ql (U) 25 Cristela/uL Normal Negative [facility] Comment on above: Performed By: #### 4 [id number] #### [facility] [address] [place] [address] Mucus Auto Ql (U) Negative Normal Negative [facility] Comment on above: Performed By: #### 4 [id number] #### [facility] [address] [place] [address] Nitrite Auto test strip Ql (U) Negative Normal Negative [facility] Comment on above: Performed By: #### 4 [id number] #### [facility] [address] [place] [address] pH (U) 5.5 [pH] Invalid Interpretation Code 5.0-9.0 [facility] Comment on above: Performed By: #### 4 [id number] #### [facility] [address] [place] [address] Protein Ql (U) Negative Normal Negative [facility] Comment on above: Performed By: #### 4 [id number] #### [facility] [address] [place] [address] RBC Ql (U) 0-3 Normal 0-3 [facility] Comment on above: Performed By: #### 4 [id number] #### [facility] [address] [place] [address] Specific gravity (U) [Rel density] 1.007 Invalid Interpretation Code 1.005-1.030 [facility] Comment on above: Performed By: #### 4 [id number] #### [facility] [address] [place] [address] Urobilinogen (U) [Mass/Vol] Negative Normal Negative [facility] Comment on above: Performed By: #### 4 [id number] #### [facility] [address] [place] [address] WBC Auto (Urine sed) [#/Area] 0-5 Normal 0-5 [facility] Comment on above: Performed By: #### 4 [id number] #### [facility] [address] [place] [address] Type of Urine collection method Clean Catch Normal [facility] Comment on above: Performed By: #### 4 [id number] #### [facility] [address] [place] [address] URINALYSISOrdered By: SYSTEM SYSTEM on 03-08-2024 Bacteria [...] that meet specific criteria set forth by [facility]. Epithelial cells.squamous Auto (Urine sed) [...] Desc Clean Catch (03/08/24 11:57 AM) Normal [facility] UA Auto SS eGFRon 03-08-2024 eGFR 120 mL/min/1.73 m2 Normal >=59 [facility] Comment on above: Order Comment: Order added by Discern Expert. Performed By: #### 1 [id number] #### [facility] [address] [place] [address] C Urineon 03-06-2024 Bacteria identified Cx Nom [...] Locations R1: This test was performed at: [facility], [address] [place] [address], [address] , [place], Normal [facility] Comment on above: Performed By: #### 2 [id number] #### [facility] [address] [place] [address] B hCG Qualon 03-04-2024 Beta HCG ( test) Ql Negative Normal [facility] Comment on above: Performed By: #### 2 [id number] #### [facility] [address] [place] [address] BMPon 03-04-2024 Anion gap [Moles/Vol] 13 mmol/L Normal 6-16 [facility] Comment on above: Performed By: #### 2 [id number] #### [facility] [address] [place] [address] Calcium [Mass/Vol] 9.4 mg/dL Normal 8.9-11.1 [facility] Comment on above: Performed By: #### 2 [id number] #### [facility] [address] [place] [address] Chloride [Moles/Vol] 102 mmol/L Normal 101-111 [facility] Comment on above: Performed By: #### 2 [id number] #### [facility] [address] [place] [address] CO2 [Moles/Vol] 26 mmol/L Normal 21-31 [facility] Comment on above: Performed By: #### 2 [id number] #### [facility] [address] [place] [address] Creatinine [Mass/Vol] 0.7 mg/dL Normal 0.5-1.3 [facility] Comment on above: Performed By: #### 2 [id number] #### [facility] [address] [place] [address] Glucose [Mass/Vol] 99 mg/dL Normal 55-199 [facility] Comment on above: Performed By: #### 2 [id number] #### [facility] [address] [place] [address] Potassium [Moles/Vol] 3.6 mmol/L Normal 3.5-5.3 [facility] Comment on above: Performed By: #### 2 [id number] #### [facility] [address] [place] [address] Sodium [Moles/Vol] 137 mmol/L Normal 135-145 [facility] Comment on above: Performed By: #### 2 [id number] #### [facility] [address] [place] [address] Urea nitrogen [Mass/Vol] 7 mg/dL Normal 5-21 [facility] Comment on above: Performed By: #### 2 [id number] #### [facility] [address] [place] [address] Urea nitrogen/Creatinine [Mass ratio] 10 No Units Normal 10-20 [facility] Comment on above: Performed By: #### 2 [id number] #### [facility] [address] [place] [address] CBC w/ Auto Diffon 4 Basophils/100 WBC (Bld) 0.1 % Normal 0.0-2.0 [facility] Comment on above: Performed By: #### 2 [id number] #### [facility] [address] [place] [address] Basophils/Leukocytes Auto (Bld) [Pure # fraction] 0.0 E9/L Normal 0.0-0.2 [facility] Comment on above: Performed By: #### 2 [id number] #### [facility] [address] [place] [address] Eosinophils (Bld) [#/Vol] 0.1 E9/L Normal 0.0-0.5 [facility] Comment on above: Performed By: #### 2 [id number] #### [facility] [address] [place] [address] Eosinophils/100 WBC (Bld) 0.8 % Normal 0.0-8.0 [facility] Comment on above: Performed By: #### 2 [id number] #### [facility] [address] [place] [address] Erythrocyte distribution width (RBC) [Ratio] 17.0 % High 10.9-14.2 [facility] Comment on above: Performed By: #### 2 [id number] #### [facility] [address] [place] [address] Hematocrit (Bld) [Volume fraction] 38.6 % Normal 34.0-46.0 [facility] Comment on above: Performed By: #### 2 [id number] #### [facility] [address] [place] [address] Hemoglobin (Bld) [Mass/Vol] 12.8 g/dL Normal 12.0-16.0 [facility] Comment on above: Performed By: #### 2 [id number] #### [facility] [address] [place] [address] Lymphocytes (Bld) [#/Vol] 1.6 E9/L Normal 1.0-4.0 [facility] Comment on above: Performed By: #### 2 771805 #### [facility] [address] [place] [address] Lymphocytes/100 WBC (Bld) 16.0 % Normal 14.0-50.0 [facility] Comment on above: Performed By: #### 2 [id number] #### [facility] [address] [place] [address] MCH (RBC) [Entitic mass] 26.9 pg Low 27.0-34.0 [facility] Comment on above: Performed By: #### 2 [id number] #### [facility] [address] [place] [address] MCHC (RBC) [Mass/Vol] 33.2 g/dL Normal 31.4-36.0 [facility] Comment on above: Performed By: #### 2 074430 #### [facility] [address] [place] [address] MCV (RBC) [Entitic vol] 81.1 fL Normal 80.0-100.0 [facility] Comment on above: Performed By: #### 2 [id number] #### [facility] [address] [place] [address] Monocytes (Bld) [#/Vol] 0.9 E9/L Normal 0.2-1.0 [facility] Comment on above: Performed By: #### 2 697501 #### [facility] [address] [place] [address] Neutrophils (Bld) [#/Vol] 7.2 E9/L Normal 2.0-7.5 [facility] Comment on above: Performed By: #### 2 569349 #### [facility] [address] [place] [address] Neutrophils/100 WBC (Bld) 74.2 % Normal 36.0-75.0 [facility] Comment on above: Performed By: #### 2 [id number] #### [facility] [address] [place] [address] Platelet 410.0 E9/L Normal 150.0-500.0 [facility] Comment on above: Performed By: #### 2 [id number] #### [facility] [address] [place] [address] Platelet mean volume (Bld) [Entitic vol] 7.2 fL Normal 6.4-10.8 [facility] Comment on above: Performed By: #### 2 912470 #### [facility] [address] [place] [address] RBC (Bld) [#/Vol] 4.8 E12/L Normal 4.3-5.9 [facility] Comment on above: Performed By: #### 2 292730 #### [facility] [address] [place] [address] WBC corrected for nucl RBC Auto (Bld) [#/Vol] 9.8 E9/L Normal 4.0-11.0 [facility] Comment on above: Performed By: #### 2 104953 #### [facility] [address] [place] [address] CHEMISTRYOrdered By: SYSTEM SYSTEM on 03-04-2024 Albumin [...] Treatmenton 02-21 Consent for Treatment [id number] .00TIFF Normal [facility] Discharge Instructionson Discharge Instructions [id number]# 1.00TIFF Normal [facility] ED Clinical Summaryon 2023 ED Clinical Summary [address] [address] ED Clinical Summary Person Information Name: ROLA AGUILAR [facility] Age: 28 Years : 1995 Sex: Female Language: South African PCP: NONE, XXXX Marital Status: Single Phone: [phone] Visit Id: Visit Reason: Skin problem; Diarrhea; [...] 03/04/2024 13:13:47 03/04/2024 13:13:47 03/04/2024 13:13:47 ADDRESS: [address] [place] [phone] PHYS DOC NOTES: MEDICAL INFORMATION: Prescriptions Given: New Medications [facility]/pharmacy #[id number], [address] [place], [place] [id number], [phone] dicyclomine (Bentyl 10 mg Cap) 2 Capsules By Mouth 4 times a day. Refills: 0. Medications to Continue Taking That Have Changed [facility]/pharmacy #[id number], [address] [place], [place] [id number], [phone] START: ondansetron (Zofran ODT 4 mg Tab-Dis) [...] pain; 2:Vomiting and diarrhea; Diarrhea, unspecified Normal [facility] ED Note-Physicianon 03-04-20 ED Note-Physician Basic [...] states she had a in October at [facility]. She states look like the scar [...] and Complexity of Problems Differential Diagnosis: [] [facility] Data External documents reviewed: [] My [...] QID, # 20 cap(s), Refills(s) 0, Pharmacy: [facility]/pharmacy #[id number], 167, cm, 03/04/24 9:30:00 EDT, Height/Length [...] Nausea/Vomiting, # 12 tab(s), Refills(s) 0, Pharmacy: [facility]/pharmacy #[id number], 167, cm, 03/04/24 9:30:00 EDT, Height/Length Dosing, 82.6, kg, 03/04/24 9:30:00 EDT, Weight Dosing Sodiu (more content not included)... Normal [facility] Comment on above: Result Comment: Elec tronically Signed By: Carolyn Mcmahon M.D..br\Date and Time Signed: 03/04/24 13:44 EDT ED [...] added (diluted fruit juice). ? Eat bland, dpbr-cd-hfuqmh foods in small amounts as you are able. These foods include bananas, applesauce, rice, lean meats, toast, and crackers. ? Avoid fluids that contain a lot of sugar or caffeine, such as energy drinks, sports drinks, and soda. ? Avoid alcohol. ? Avoid spicy or fatty foods. General instructions ? Take ipzd-kdy-pvyutbv and prescription medicines only as told by your health care provider. ? Drink enough fluid to keep your urine pale yellow. ? Wash your hands often using soap and water for at least 20 seconds. If soap and water are not available, use hand lubricating specialist. ? Make sure that everyone in your [...] and drinking to prevent dehydration. ? Take njyg-uyl-kfwzsuw and prescription medicines only as told by [...] provider. Document Revised: 03/16/2022 Document Reviewed: 03/16/2022 [employer] Patient Education ? 2022 [employer] Abdominal Pain, Adult Pain in the abdomen [...] these instructions at home: Medicines ? Take auyr-xdl-fdwdclf and prescription medicines only as told by your health care provider. ? Do not take a laxative unless told by your health care provider. General instructions ? Watch your condition for any changes. ? Drink enough fluid to keep your urine pale yellow. ? Keep all follow-up visits as told by your h (more content not included)... Normal [facility] ED Patient Summaryon 024 ED Patient Summary [place] [id number] Patient Discharge Instructions Person Information Name: ROLA AGUILAR Sj Age: 28 Years Arrival Date: 03/04/2024 09:14:32 Discharge Diagnosis: 1:Abdominal pain; 2:Vomiting and diarrhea; Diarrhea, unspecified Primary Care Physician: NONE, XXXX Provider Information Primary Provider: Carolyn Mcmahon M.D. Advanced Registered Nurse Maternity:None The exam and treatment you received in the Emergency Department were for an urgent problem and are not intended as complete care. It is important that you follow up with a doctor, nurse practitioner, or physician?s housekeeping assistant for ongoing care. If your symptoms [...] opioids can be used to help relieve whqfzmef-fv-wpccwz pain and are often prescribed following a [...] may be (more content not included)... Normal [facility] HEMATOLOGYOrdered By: SYSTEM SYSTEM on 03-04-2024 [...] 03-04-2024 Albumin [Mass/Vol] 4.0 g/dL Normal 3.3-5.0 [facility] Comment on above: Performed By: #### 2 [id number] #### [facility] [address] [place] [address] Albumin/Globulin (S) [Mass conc ratio] 1.0 Low 1.1-2.2 [facility] Comment on above: Performed By: #### 2 204642 #### [facility] [address] [place] [address] ALP [Catalytic activity/Vol] 91 Int._Unit/L Normal 21-98 [facility] Comment on above: Performed By: #### 2 610036 #### [facility] [address] [place] [address] ALT No additional P-5'-P [Catalytic activity/Vol] 15 Int._Unit/L Normal 6-46 [facility] Comment on above: Performed By: #### 2 623621 #### [facility] [address] [place] [address] AST [Catalytic activity/Vol] 9 Int._Unit/L Normal 5-43 [facility] Comment on above: Performed By: #### 2 729527 #### [facility] [address] [place] [address] Bilirubin [Mass/Vol] 0.7 mg/dL Normal 0.0-1.1 [facility] Comment on above: Performed By: #### 2 515234 #### [facility] [address] [place] [address] Bilirubin.direct [Mass/Vol] 0.1 mg/dL Normal 0.0-0.4 [facility] Comment on above: Performed By: #### 2 738074 #### [facility] [address] [place] [address] Bilirubin.indirect [Mass or moles/Vol] 0.6 mg/dL Normal 0.1-0.9 [facility] Comment on above: Performed By: #### 2 545625 #### [facility] [address] [place] [address] Globulin (S) [Mass/Vol] 3.9 g/dL Normal 1.4-4.0 [facility] Comment on above: Performed By: #### 2 442707 #### [facility] [address] [place] [address] Protein [Mass/Vol] 7.9 g/dL High 6.0-7.8 [facility] Comment on above: Performed By: #### 2 847115 #### [facility] [address] [place] [address] Lipase Levelon 03-04-2024 Lipase [Catalytic activity/Vol] 36 U/L Normal 13-58 [facility] Comment on above: Performed By: #### 2 131379 #### [facility] [address] [place] [address] Magnesiumon 03-04-2024 Magnesium [Mass/Vol] 1.6 mg/dL Normal 1.3-2.4 [facility] Comment on above: Performed By: #### 2 599461 #### [facility] [address] [place] [address] SEROLOGYOrdered By: Nessa patino on 03-04-2024 Beta HCG ( test) Ql Negative (03/04/24 9:44 AM) Normal [facility] Man Sero UA with Cult [employer] 03-04-20 24 Bacteria Auto Ql (U) Trace Normal Trace [facility] Comment on above: Performed By: #### 4 [id number] #### [facility] [address] [place] [address] Bilirubin Ql (U) Negative Normal Negative [facility] Comment on above: Performed By: #### 4 [id number] #### [facility] [address] [place] [address] Clarity (U) Turbid Abnormal Clear [facility] Comment on above: Performed By: #### 4 [id number] #### [facility] [address] [place] [address] Color (U) Light-Yellow Normal Yellow [facility] Comment on above: Result Comment: Micr oscopic readings are only performed on those samples that meet specific criteria set forth by [facility]. Performed By: #### 4 [id number] #### [facility] [address] [place] [address] Epithelial cells.squamous Auto (Urine sed) [#/Area] 3-4 Invalid Interpretation Code [facility] Comment on above: Performed By: #### 4 [id number] #### [facility] [address] [place] [address] Glucose Ql (U) Negative Normal Negative [facility] Comment on above: Performed By: #### 4 [id number] #### [facility] [address] [place] [address] Hemoglobin Auto test strip (U) [Mass/Vol] Negative Normal Negative [facility] Comment on above: Performed By: #### 4 [id number] #### [facility] [address] [place] [address] Ketones Auto test strip Ql (U) Negative Normal Negative [facility] Comment on above: Performed By: #### 4 [id number] #### [facility] [address] [place] [address] Leukocyte esterase Auto test strip Ql (U) 75 Cristela/uL Abnormal Negative [facility] Comment on above: Performed By: #### 4 [id number] #### [facility] [address] [place] [address] Mucus Auto Ql (U) Trace Normal Negative [facility] Comment on above: Performed By: #### 4 [id number] #### [facility] [address] [place] [address] Nitrite Auto test strip Ql (U) Negative Normal Negative [facility] Comment on above: Performed By: #### 4 [id number] #### [facility] [address] [place] [address] pH (U) 6.0 [pH] Invalid Interpretation Code 5.0-9.0 [facility] Comment on above: Performed By: #### 4 [id number] #### [facility] [address] [place] [address] Protein Ql (U) Negative Normal Negative [facility] Comment on above: Performed By: #### 4 [id number] #### [facility] [address] [place] [address] RBC Ql (U) 0-3 Normal 0-3 [facility] Comment on above: Performed By: #### 4 [id number] #### [facility] [address] [place] [address] Specific gravity (U) [Rel density] 1.006 Invalid Interpretation Code 1.005-1.030 [facility] Comment on above: Performed By: #### 4 [id number] #### [facility] [address] [place] [address] Urobilinogen (U) [Mass/Vol] Negative Normal Negative [facility] Comment on above: Performed By: #### 4 [id number] #### [facility] [address] [place] [address] WBC Auto (Urine sed) [#/Area] 6-15 Abnormal 0-5 [facility] Comment on above: Performed By: #### 4 [id number] #### [facility] [address] [place] [address] Type of Urine collection method Clean Catch Normal [facility] Comment on above: Performed By: #### 4 [id number] #### [facility] [address] [place] [address] URINALYSISOrdered By: SYSTEM SYSTEM on 03-04-2024 Bacteria Auto Ql (U) Trace /HPF Normal Trace/HPF [facility] UA Auto SS Bilirubin Ql (U) Negative Normal Negativemg/dL [facility] UA Auto SS Clarity (U) Turbid *ABN* (03/04/24 11:16 AM) Invalid Interpretation Code Clear [facility] UA Auto SS Color (U) Light-Yellow 1 (03/04/24 11:16 AM) Normal Yellow [facility] UA Auto SS Comment on above: Interpretive Data: M icroscopic readings are only performed on those samples that meet specific criteria set forth by [facility]. Epithelial cells.squamous Auto (Urine sed) [...] 03-04-2024 eGFR 120 mL/min/1.73 m2 Normal >=59 [facility] Comment on above: Order Comment: Order added by Discern Expert. Performed By: #### 1 [id number] #### [facility] [address] [place] [address] Patient Educationon 03-01-20 Patient Education Immunology Crohn's [...] specializes in diseases of the digestive tract (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 How is this treated? There is no [...] these instructions at home: Medicines ? Take codn-fdf-mrysjev and prescription medicines only as told by [...] contain jonny (more content not included)... Normal [facility] ED Note-Physicianon 12-26-19 ED Note-Physician Basic [...] 15:37:00) Lymph Auto: 19.1 % (12/21/23 15:37:00) [place] Auto: 8.2 % (12/21/23 15:37: (more content not included)... Normal [facility] Comment on above: Result Comment: Elec [...] department with any questions. Thank you! Normal [facility] CT Abdomen/Pelvis w/ Contras ton 12-22-2023 CT [...] Anshul Cardoza MD Transcribed by: CLARICE Technologist: SRF Technical Comments GFR (mL/min/1/73m2) na/age Contrast: Isovue 300 Contrast amount in ml's: 100 Rectal Contrast Given? No Oral contrast amount in ml's: 0 Normal [facility] CBC w/ Auto Diffon 4 Basophils/100 WBC (Bld) 0.6 % Normal 0.0-2.0 [facility] Comment on above: Performed By: #### 1 7121809, 0857964, 9247835, 9432618, 0448027, 6699396 ####[facility] [address] [place] [address] Basophils/Leukocytes Auto (Bld) [Pure # fraction] 0.0 E9/L Normal 0.0-0.2 [facility] Comment on above: Performed By: #### 1 6339996, 9761224, 9720384, 7971928, 2771359, 4514627 ####[facility] [address] [place] [address] Eosinophils (Bld) [#/Vol] 0.1 E9/L Normal 0.0-0.5 [facility] Comment on above: Performed By: #### 1 4323625, 4918184, 0439443, 4161577, 2575656, 3479180 ####[place] [address] [place] [address] Eosinophils/100 WBC (Bld) 2.4 % Normal 0.0-8.0 [facility] Comment on above: Performed By: #### 1 6236991, 5798171, 7445140, 8864631, 8698649, 4933856 ####[place] [address] [place] [address] Erythrocyte distribution width (RBC) [Ratio] 16.3 % High 10.9-14.2 [facility] Comment on above: Performed By: #### 1 6004522, 9509428, 2816763, 7920249, 7162185, 7362583 ####[address] [address] Hematocrit (Bld) [Volume fraction] 34.7 % Normal 34.0-46.0 [facility] Comment on above: Performed By: #### 1 1535184, 0923669, 3575997, 7701638, 5213762, 5802541 ####[address] [address] Hemoglobin (Bld) [Mass/Vol] 11.3 g/dL Low 12.0-16.0 [facility] Comment on above: Performed By: #### 1 0485898, 4519262, 6663554, 0477696, 1551217, 1431299 ####[address] [address] Lymphocytes (Bld) [#/Vol] 0.9 E9/L Low 1.0-4.0 [facility] Comment on above: Performed By: #### 1 9716374, 0255358, 6758280, 2196427, 5456883, 9421478 ####[address] [address] Lymphocytes/100 WBC (Bld) 19.1 % Normal 14.0-50.0 [facility] Comment on above: Performed By: #### 1 5891075, 1417588, 0210277, 8283243, 6892614, 6119981 ####[place] [address] [place] [address] MCH (RBC) [Entitic mass] 27.2 pg Normal 27.0-34.0 [facility] Comment on above: Performed By: #### 1 7570473, 9973082, 4792600, 8083429, 5929244, 1226832 ####[place] [address] [place] [address] MCHC (RBC) [Mass/Vol] 32.6 g/dL Normal 31.4-36.0 [facility] Comment on above: Performed By: #### 1 4804187, 7728300, 1764805, 3477590, 1009307, 2909477 ####[place] [address] MCV (RBC) [Entitic vol] 83.5 fL Normal 80.0-100.0 [facility] Comment on above: Performed By: #### 1 6434545, 8843034, 4121605, 4949112, 4879893, 8313793 ####[place] [address] Monocytes (Bld) [#/Vol] 0.4 E9/L Normal 0.2-1.0 [facility] Comment on above: Performed By: #### 1 5014164, 7328282, 7658845, 4466581, 8226653, 1860106 ####[place] [address] Neutrophils (Bld) [#/Vol] 3.4 E9/L Normal 2.0-7.5 [facility] Comment on above: Performed By: #### 1 8015954, 7170322, 0108280, 1753837, 7957955, 6228977 ####[address] [address] Neutrophils/100 WBC (Bld) 69.7 % Normal 36.0-75.0 [facility] Comment on above: Performed By: #### 1 4667816, 9765319, 1262436, 0901091, 6139711, 2879462 ####[place] [address] [place] [address] Platelet mean volume (Bld) [Entitic vol] 7.6 fL Normal 6.4-10.8 [facility] Comment on above: Performed By: #### 1 2191655, 7309927, 1575744, 3172544, 0481698, 9570572 ####[place] [address] [place] [address] Platelets (Bld) [#/Vol] 341.0 E9/L Normal 150.0-500.0 [facility] Comment on above: Performed By: #### 1 7095947, 1497442, 6686236, 8881450, 4288594, 9007160 ####[address] [address] RBC (Bld) [#/Vol] 4.2 E12/L Low 4.3-5.9 [facility] Comment on above: Performed By: #### 1 2057302, 7748107, 7100074, 3943844, 7317934, 1660495 ####[place] [address] [place] [address] WBC corrected for nucl RBC Auto (Bld) [#/Vol] 4.9 E9/L Normal 4.0-11.0 [facility] Comment on above: Performed By: #### 1 9322948, 5847472, 4791652, 7336416, 6861734, 5372285 ####[place] [address] [place] [address] CHEMISTRYOrdered By: SYSTEM SYSTEM on 12-21-2023 Albumin [...] 12-21-2023 Albumin [Mass/Vol] 4.2 g/dL Normal 3.3-5.0 [facility] Comment on above: Performed By: #### 1 6348846 #### [facility] [address] [place] [address] Albumin/Globulin (S) [Mass conc ratio] 1.0 Low 1.1-2.2 [facility] Comment on above: Performed By: #### 1 0621449 #### [facility] [address] [place] [address] ALP [Catalytic activity/Vol] 69 Int._Unit/L Normal 21-98 [facility] Comment on above: Performed By: #### 1 7366140 #### [facility] [address] [place] [address] ALT No additional P-5'-P [Catalytic activity/Vol] 9 Int._Unit/L Normal 6-46 [facility] Comment on above: Performed By: #### 1 7621799 #### [facility] [address] [place] [address] Anion gap [Moles/Vol] 11 mmol/L Normal 6-16 [facility] Comment on above: Performed By: #### 1 5070920 #### [facility] [address] [place] [address] AST [Catalytic activity/Vol] 10 Int._Unit/L Normal 5-43 [facility] Comment on above: Performed By: #### 1 6713260 #### [facility] [address] [place] [address] Bilirubin [Mass/Vol] 0.4 mg/dL Normal 0.0-1.1 [facility] Comment on above: Performed By: #### 1 7338186 #### [facility] [address] [place] [address] Calcium [Mass/Vol] 9.1 mg/dL Normal 8.9-11.1 [facility] Comment on above: Performed By: #### 1 4986278 #### [facility] [address] [place] [address] Chloride [Moles/Vol] 104 mmol/L Normal 101-111 [facility] Comment on above: Performed By: #### 1 6104487 #### [facility] [address] [place] [address] CO2 [Moles/Vol] 29 mmol/L Normal 21-31 [facility] Comment on above: Performed By: #### 1 2698551 #### [facility] [address] [place] [address] Creatinine [Mass/Vol] 0.7 mg/dL Normal 0.5-1.3 [facility] Comment on above: Performed By: #### 1 9007921 #### [facility] [address] [place] [address] Globulin (S) [Mass/Vol] 4.2 g/dL High 1.4-4.0 [facility] Comment on above: Performed By: #### 1 0717768 #### [facility] [address] [place] [address] Glucose [Mass/Vol] 91 mg/dL Normal 55-199 [facility] Comment on above: Performed By: #### 1 6273227 #### [facility] [address] [place] [address] Potassium [Moles/Vol] 3.3 mmol/L Low 3.5-5.3 [facility] Comment on above: Performed By: #### 1 4668112 #### [facility] [address] [place] [address] Protein [Mass/Vol] 8.4 g/dL High 6.0-7.8 [facility] Comment on above: Performed By: #### 1 1285216 #### [facility] [address] [place] [address] Sodium [Moles/Vol] 141 mmol/L Normal 135-145 [facility] Comment on above: Performed By: #### 1 8051937 #### [facility] [address] [place] [address] Urea nitrogen [Mass/Vol] 8 mg/dL Normal 5- [facility] Comment on above: Performed By: #### 1 3189996 #### [facility] [address] [place] [address] Urea nitrogen/Creatinine [Mass ratio] 11 No Units Normal 10- [facility] Comment on above: Performed By: #### 1 0942340 #### [facility] [address] [place] [address] Consent for Treatmenton 11-23 Consent for Treatment [id number] .[id number] Normal [facility] Discharge Instructionson Discharge Instructions [id number]# 1.00TIFF Normal [facility] ED Clinical Summaryon 2023 ED Clinical Summary [address] [address] ED Clinical Summary Person Information Name: ROLA AGUILAR [facility] Age: 28 Years : 1995 Sex: Female Language: South African PCP: Kale RENDON MD Marital Status: Single Phone: [phone] Visit Id: Visit Reason: Ostomy evaluation; Nausea; [...] 12/21/2023 21:17:14 12/21/2023 21:17:14 12/21/2023 21:17:14 ADDRESS: [address] [place] [phone] PHYS DOC NOTES: MEDICAL INFORMATION: Prescriptions Given: New Medications [facility]/pharmacy #[id number], [address] [place], [place] [id number], [phone] oxycodone (oxyCODONE 5 mg Tab) 1 Tablets By Mouth every 6 hours as needed for pain for 3 Days. Refills: 0. Medications to Continue Taking That Have Changed [facility]/pharmacy #[id number], [address] [place], [place] [id number], [phone] START: ondansetron (Zofran ODT 4 mg Tab-Dis) [...] Follow up: With: Address: When: Ja Bhardwaj [address] [place] [address] [phone] Business (1) In 3 days 12/24/2023 Comments: [...] worsening symptoms. With: Address: When: Kale RENDON [address] [place], [place] [phone] [facility] (1) In 3 days 12/24/2023 DIAGNOSIS: Acute Crohn's disease Normal [facility] ED Patient Education Noteon 12-21-2023 ED [...] specializes in diseases of the digestive tract (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 How is this treated? There is no [...] these instructions at home: Medicines ? Take ulpj-ldi-fqzmyvy and prescription medicines only as told by [...] contain jonny (more content not included)... Normal [facility] ED Patient Summaryon 024 ED Patient Summary [address] [address] Patient Discharge Instructions Person Information Name: ROLA AGUILAR Age: 28 Years Arrival Date: 12/21/2023 14:42:51 Discharge Diagnosis: Acute Crohn's disease Primary Care Physician: Kale RENDON MD Provider Information Primary Provider: Elliot Macias DO Advanced Registered Nurse Maternity:None The exam and treatment you received in the Emergency Department were for an urgent problem and are not intended as complete care. It is important that you follow up with a doctor, nurse practitioner, or physician?s housekeeping assistant for ongoing care. If your symptoms [...] Follow-up Instructions: With: Address: When: Ja Bhardwaj [address] [place] [address], [address], [address] [phone] [facility] (1) In 3 days 12/24/2023 Comments: You [...] worsening symptoms. With: Address: When: Kale RENDON [address] [place], [place] [phone] [facility] (1) In 3 days 12/24/2023 In the event that this physician does not participate in your insurance network, please consult with your insurance company to find a nearby participating provider. Patient Education Materials: Crohn's Disease A MESSAGE TO ALL PATIENTS REGARDING OPIOIDS PRESCRIPTION OPIOIDS: WHAT YOU NEED TO KNOW Prescription opioids can be used to help relieve inxktcbq-vi-hazddq pain and are often prescribed following a [...] prescription opioi (more content not included)... Normal [facility] HEMATOLOGYOrdered By: SYSTEM SYSTEM on 12-21-2023 [...] Lactic Acid Lvl 0.4 mmol/L Low 0.5-2.2 [facility] Comment on above: Performed By: #### 1 4035211, 9212231, 8575217, 6192845, 7462464, 2852248 ####[facility] [address] [place] [address] Lipase Levelon 12-21-2023 Lipase [Catalytic activity/Vol] 57 U/L Normal 13-58 [facility] Comment on above: Performed By: #### 1 [id number] #### [facility] [address] [id number] Magnesiumon 12-21-2023 Magnesium [Mass/Vol] 1.6 mg/dL Normal 1.3-2.4 [facility] Comment on above: Performed By: #### 1 [id number] #### [facility] [address] [address] RAD - Preliminary Cat Scan R eporton 12-21-2023 RAD - Preliminary Cat Scan Report [id number]# 1.00TIFF Normal [facility] eGFRon 12-21-2023 eGFR 120 mL/min/1.73 m2 Normal >=59 [facility] Comment on above: Order Comment: Order added by Discern Expert. Performed By: #### 1 [id number] #### [facility] [address] [place] [address] CT Abdomen/Pelvis w/ Contras ton 12-08-2023 CT [...] 300 Contrast amount in ml's: 100 Normal [facility] Discharge Instructionson Discharge Instructions [id number]# 1.00TIFF Normal [facility] ED Clinical Summaryon 2023 ED Clinical Summary [place] [id number] ED Clinical Summary Person Information Name: ROLA AGUILAR [facility] Age: 28 Years : 1995 Sex: Female Language: South African PCP: Kale RENDON MD Marital Status: Single Phone: [phone] Visit Id: Visit Reason: Blood in stool; [...] 12/08/2023 00:09:54 12/08/2023 00:09:54 ADDRESS: [address] [phone] PHYS DOC NOTES: MEDICAL INFORMATION: Prescriptions Given: New Medications [id number], [address] [place], [place] [id number], [phone] predniSONE (predniSONE 10 mg Tab) 6 tabs [...] With: Address: When: [place] [address] Business (1) In 3 days DIAGNOSIS: Exacerbation of Crohn's disease; Hypokalemia Normal [facility] ED Patient Education Noteon 12-08-2023 ED [...] specializes in diseases of the digestive tract (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 How is this treated? There is no [...] these instructions at home: Medicines ? Take nufx-ubu-txlbpzm and prescription medicines only as told by [...] contain jonny (more content not included)... Normal [facility] ED Patient Summaryon 024 ED Patient Summary [address] [address] Patient Discharge Instructions Person Information Name: ROLA AGUILAR Age: 28 Years Arrival Date: 12/07/2023 18:41:54 Discharge Diagnosis: Exacerbation of Crohn's disease; Hypokalemia Primary Care Physician: MERVAT GILES, Kale Provider Information Primary Provider: Alex Sanchez DO Advanced Registered Nurse Maternity:None The exam and treatment you received in the Emergency Department were for an urgent problem and are not intended as complete care. It is important that you follow up with a doctor, nurse practitioner, or physician?s housekeeping assistant for ongoing care. If your symptoms [...] Follow-up Instructions: With: Address: When: Kale RENDON [address] [place] [address] Business (1) In 3 days In the event that this physician does not participate in your insurance network, please consult with your insurance company to find a nearby participating provider. Patient Education Materials: Crohn's Disease A MESSAGE TO ALL PATIENTS REGARDING OPIOIDS PRESCRIPTION OPIOIDS: WHAT YOU NEED TO KNOW Prescription opioids can be used to help relieve ulbmodoi-ts-jwzioc pain and are often prescribed following a [...] be struggling with addiction, tell your health adult care manager and ask for guidance or call [facility]?S National Helpline at 7-891-741-ULSI. v Source: Depar (more content not included)... Normal [facility] RAD - Preliminary Cat Scan R eporton 12-08-2023 RAD - Preliminary Cat Scan Report [id number]# 1.00TIFF Normal [facility] B hCG Qualon 12-07-2023 Beta HCG ( test) Ql Negative Normal [facility] Comment on above: Performed By: #### 2 467771, 9199923, 5430119, 3531206, 6372974, 32761730 #### [facility] [address] [place] [address] BMPon 12-07-2023 Anion gap [Moles/Vol] 11 mmol/L Normal 6-16 [facility] Comment on above: Performed By: #### 2 029406, 2096099, 1532882, 5853529, 2064693, 05214245 #### [facility] [address] [place] [address] Calcium [Mass/Vol] 8.4 mg/dL Low 8.9-11.1 [facility] Comment on above: Performed By: #### 2 660256, 1536526, 3458175, 3427873, 5508485, 51577978 #### [facility] [address] [place] [address] Chloride [Moles/Vol] 104 mmol/L Normal 101-111 [facility] Comment on above: Performed By: #### 2 670178, 3005780, 5466386, 0957072, 0938419, 10019203 #### [facility] [address] [place] [address] CO2 [Moles/Vol] 28 mmol/L Normal 21-31 [facility] Comment on above: Performed By: #### 2 341768, 2540775, 9304877, 9100670, 4512106, 41711431 #### [facility] [address] [place] [address] Creatinine [Mass/Vol] 0.8 mg/dL Normal 0.5-1.3 [facility] Comment on above: Performed By: #### 2 355016, 8805258, 2106932, 2599634, 4093273, 01023259 #### [facility] [address] [place] [address] Glucose [Mass/Vol] 83 mg/dL Normal 55-199 [facility] Comment on above: Performed By: #### 2 276967, 1618745, 9409622, 4049622, 1756144, 36038566 #### [facility] [address] [place] [address] Potassium [Moles/Vol] 3.2 mmol/L Low 3.5-5.3 [facility] Comment on above: Performed By: #### 2 486251, 9936746, 3978230, 6992038, 0621223, 23250726 #### [facility] [address] [place] [address] Sodium [Moles/Vol] 140 mmol/L Normal 135-145 [facility] Comment on above: Performed By: #### 2 934246, 9504896, 3744008, 1270347, 6642351, 60444721 #### [facility] [address] [place] [address] Urea nitrogen [Mass/Vol] 8 mg/dL Normal 5-21 [facility] Comment on above: Performed By: #### 2 154824, 3223384, 9546339, 9129126, 9568053, 90972523 #### [facility] [address] [place] [address] Urea nitrogen/Creatinine [Mass ratio] 10 No Units Normal 10-20 [facility] Comment on above: Performed By: #### 2 243436, 9011195, 7760330, 2906437, 7022462, 57251722 #### [facility] [address] [place] [address] CBC w/ Auto Diffon 4 Basophils/100 WBC (Bld) 0.4 % Normal 0.0-2.0 [facility] Comment on above: Performed By: #### 2 279459, 9362357, 4944774, 0642232, 8758725, 09671064 #### [facility] [address] [place] [address] Basophils/Leukocytes Auto (Bld) [Pure # fraction] 0.0 E9/L Normal 0.0-0.2 [facility] Comment on above: Performed By: #### 2 990812, 1855483, 9472022, 4855007, 1692583, 90260318 #### [facility] [address] [place] [address] Eosinophils (Bld) [#/Vol] 0.2 E9/L Normal 0.0-0.5 [facility] Comment on above: Performed By: #### 2 052338, 9791857, 5534534, 7688488, 1601564, 15801128 #### [facility] [address] [place] [address] Eosinophils/100 WBC (Bld) 3.6 % Normal 0.0-8.0 [facility] Comment on above: Performed By: #### 2 508871, 4074986, 5424800, 0351724, 8699811, 01329336 #### [facility] [address] [place] [address] Erythrocyte distribution width (RBC) [Ratio] 17.0 % High 10.9-14.2 [facility] Comment on above: Performed By: #### 2 982362, 7375780, 0830543, 0588167, 5065835, 81026291 #### [facility] [address] [place] [address] Hematocrit (Bld) [Volume fraction] 33.4 % Low 34.0-46.0 [facility] Comment on above: Performed By: #### 2 279477, 2333170, 1918398, 1032541, 9105974, 01548522 #### [facility] [address] [place] [address] Hemoglobin (Bld) [Mass/Vol] 11.0 g/dL Low 12.0-16.0 [facility] Comment on above: Performed By: #### 2 075296, 2382639, 7919551, 7978810, 1981703, 51592592 #### [facility] [address] [place] [address] Lymphocytes (Bld) [#/Vol] 0.8 E9/L Low 1.0-4.0 [facility] Comment on above: Performed By: #### 2 635239, 3366083, 5926426, 6174444, 5323979, 54258492 #### [facility] [address] [place] [address] Lymphocytes/100 WBC (Bld) 14.9 % Normal 14.0-50.0 [facility] Comment on above: Performed By: #### 2 017988, 6294521, 9539013, 3515819, 4690401, 90309641 #### [facility] [address] [place] [address] MCH (RBC) [Entitic mass] 27.6 pg Normal 27.0-34.0 [facility] Comment on above: Performed By: #### 2 372251, 4975276, 9439127, 3450332, 7856515, 37417050 #### [facility] [address] [place] [address] MCHC (RBC) [Mass/Vol] 32.9 g/dL Normal 31.4-36.0 [facility] Comment on above: Performed By: #### 2 287494, 8497244, 9437457, 7732994, 7324220, 67341383 #### [facility] [address] [place] [address] MCV (RBC) [Entitic vol] 83.9 fL Normal 80.0-100.0 [facility] Comment on above: Performed By: #### 2 341399, 3166728, 7788081, 7578223, 9877182, 59290619 #### [facility] [address] [place] [address] Monocytes (Bld) [#/Vol] 0.5 E9/L Normal 0.2-1.0 [facility] Comment on above: Performed By: #### 2 993891, 1917246, 3388538, 3635365, 0492358, 31344614 #### [facility] [address] [place] [address] Neutrophils (Bld) [#/Vol] 4.0 E9/L Normal 2.0-7.5 [facility] Comment on above: Performed By: #### 2 714326, 6950001, 1461332, 3615830, 9034166, 56298636 #### [facility] [address] [place] [address] Neutrophils/100 WBC (Bld) 71.8 % Normal 36.0-75.0 [facility] Comment on above: Performed By: #### 2 341740, 2758576, 0688682, 7526401, 7203946, 28941139 #### [facility] [address] [place] [address] Platelet 337.0 E9/L Normal 150.0-500.0 [facility] Comment on above: Performed By: #### 2 388263, 4744167, 9165570, 5817533, 5353859, 70257118 #### [facility] [address] [place] [address] Platelet mean volume (Bld) [Entitic vol] 7.4 fL Normal 6.4-10.8 [facility] Comment on above: Performed By: #### 2 183456, 1787543, 4305734, 5571493, 0847521, 70862668 #### [facility] [address] [place] [address] RBC (Bld) [#/Vol] 4.0 E12/L Low 4.3-5.9 [facility] Comment on above: Performed By: #### 2 559962, 6140670, 8098867, 2230222, 1222435, 53637363 #### [facility] [address] [place] [address] WBC corrected for nucl RBC Auto (Bld) [#/Vol] 5.6 E9/L Normal 4.0-11.0 [facility] Comment on above: Performed By: #### 2 672648, 8302054, 2246289, 4363760, 2005578, 44114301 #### [facility] [address] [place] [address] CHEMISTRYOrdered By: SYSTEM SYSTEM on 12-07-2023 Albumin [...] Treatmenton 11-21 Consent for Treatment [id number]#1 .00TIFF Normal [facility] ED Note-Physicianon 12-07-19 24 ED Note-Physician Basic Information Time Seen: Alex Sanchez DO. 12/07/2023 18:55 Chief Complaint Pt is [...] weeks from a and at first her GENETIC COUNSELOR told her that it should be getting better but the pain is only getting worse. She says she follows with [facility] for gastroenterology but was recently told [...] and Complexity of Problems Differential Diagnosis: [] [facility] Data External documents reviewed: N/A My [...] days, # 42 tab(s), Refills(s) 0, Pharmacy: [facility]/pharmacy #[id number], 167, cm, 12/07/23 18:59:00 EDT, Height/Length [...] 3 day (more content not included)... Normal [facility] Comment on above: Result Comment: Elec [...] 12-07-2023 Albumin [Mass/Vol] 3.9 g/dL Normal 3.3-5.0 [facility] Comment on above: Performed By: #### 2 900288, 3927544, 2241992, 5490737, 0035118, 91262482 #### [facility] [address] [place] [address] Albumin/Globulin (S) [Mass conc ratio] 1.2 Normal 1.1-2.2 [facility] Comment on above: Performed By: #### 2 591276, 4758046, 9729486, 5618582, 4438488, 62171161 #### [facility] [address] [place] [address] ALP [Catalytic activity/Vol] 68 Int._Unit/L Normal 21-98 [facility] Comment on above: Performed By: #### 2 303849, 7452031, 3350121, 1448756, 9604332, 59764579 #### [facility] [address] [place] [address] ALT No additional P-5'-P [Catalytic activity/Vol] 10 Int._Unit/L Normal 6-46 [facility] Comment on above: Performed By: #### 2 632470, 1961300, 2223933, 7633504, 0156612, 77633773 #### [facility] [address] [place] [address] AST [Catalytic activity/Vol] 11 Int._Unit/L Normal 5-43 [facility] Comment on above: Performed By: #### 2 880513, 0145174, 2637199, 8023562, 9923801, 95604657 #### [facility] [address] [place] [address] Bilirubin [Mass/Vol] 0.4 mg/dL Normal 0.0-1.1 [facility] Comment on above: Performed By: #### 2 721094, 8562115, 3597267, 1493766, 8404659, 36206536 #### [facility] [address] [place], [place] [address] Bilirubin.direct [Mass/Vol] 0.1 mg/dL Normal 0.0-0.4 [facility] Comment on above: Performed By: #### 2 695020, 6839198, 2990988, 4511487, 2540944, 62788533 #### [facility] [address] [place] [address] Bilirubin.indirect [Mass or moles/Vol] 0.3 mg/dL Normal 0.1-0.9 [facility] Comment on above: Performed By: #### 2 303787, 4251276, 5765946, 2307586, 7344218, 63470974 #### [facility] [address] [place] [address] Globulin (S) [Mass/Vol] 3.3 g/dL Normal 1.4-4.0 [facility] Comment on above: Performed By: #### 2 411646, 6391702, 5408381, 5148461, 6008228, 78337670 #### [facility] [address] [place] [address] Protein [Mass/Vol] 7.2 g/dL Normal 6.0-7.8 [facility] Comment on above: Performed By: #### 2 536436, 2074757, 7892598, 6826021, 0315706, 33068931 #### [facility] [address] [place] [address] Lipase Levelon 12-07-2023 Lipase [Catalytic activity/Vol] 66 U/L High 13-58 [facility] Comment on above: Performed By: #### 2 579975, 7528951, 4602189, 8878805, 2651810, 28046161 #### [facility] [address] [place] [address] SEROLOGYOrdered By: Marko Coronadoeon on 12-07-2023 Beta HCG ( test) Ql Negative (12/07/23 7:23 PM) Normal [facility] Man Sero UA With Cult Reflexon 2023 Bilirubin Ql (U) Negative Normal Negative [facility] Comment on above: Performed By: #### 1 4763362 #### [facility] [address] [place] [address] Clarity (U) CLEAR Normal Clear [facility] Comment on above: Performed By: #### 1 0350405 #### [facility] [address] [place] [address] Color (U) YELLOW Normal Yellow [facility] Comment on above: Performed By: #### 1 2575696 #### [facility] [address] [place] [address] Epithelial cells.squamous LM.HPF (Urine sed) [#/Area] 0-2 Normal 0-2 [facility] Comment on above: Performed By: #### 1 7726502 #### [facility] [address] [place] [address] Glucose Test strip (U) [Mass/Vol] Negative Normal Negative [facility] Comment on above: Performed By: #### 1 5824006 #### [facility] [address] [place] [address] Hemoglobin Ql (U) Negative Normal Negative [facility] Comment on above: Performed By: #### 1 2359541 #### [facility] [address] [place] [address] Ketones (U) [Mass/Vol] Negative Normal Negative [facility] Comment on above: Performed By: #### 1 5531854 #### [facility] [address] [place] [address] [place].plasma/[place] .RBC (Bld) [Mass ratio] 0-3 Normal 0-3 [facility] Comment on above: Performed By: #### 1 5727299 #### [facility] [address] [place] [address] Nitrite Ql (U) Negative Normal Negative [facility] Comment on above: Performed By: #### 1 1564808 #### [facility] [address] [place] [address] pH (U) 6.5 [pH] Invalid Interpretation Code 5.0-9.0 [facility] Comment on above: Performed By: #### 1 3761076 #### [facility] [address] [place] [address] Protein (U) [Mass/Vol] Negative Normal Negative [facility] Comment on above: Performed By: #### 1 2055230 #### [facility] [address] [place] [address] Specific gravity (U) [Rel density] <=1.005 Invalid Interpretation Code 1.005-1.030 [facility] Comment on above: Performed By: #### 1 1910424 #### [facility] [address] [place] [address] Type of Urine collection method Clean Catch Normal [facility] Comment on above: Performed By: #### 1 1398376 #### [facility] [address] [place] [address] Urobilinogen Qn (U) 0.2 {Keyla'U}/dL Normal 0.0-1.0 [facility] Comment on above: Performed By: #### 1 8483032 #### [facility] [address] [place] [address] WBC Auto Ql (U) Negative Normal Negative [facility] Comment on above: Performed By: #### 1 7092518 #### [facility] [address] [place] [address] WBC LM.HPF (Urine sed) [#/Area] 0-5 Normal 0-5 [facility] Comment on above: Performed By: #### 1 0676178 #### [facility] [address] [place] [address] URINALYSISOrdered By: Marko Headley on 12-07-2023 Bilirubin [...] PM) Normal Negative [facility] UA Auto SS [place].plasma/[place] .RBC (Bld) [Mass ratio] 0-3 /HPF Normal [...] PM) Invalid Interpretation Code 1.005 - 1.030 [facility] UA Auto SS UA Spec Desc Clean Catch (12/07/23 9:24 PM) Normal [facility] UA Auto SS Urobilinogen Qn (U) 0.2014275 {Keyla'U}/dL Normal 0.0 - 1.0 EU/dL [facility] UA Auto SS WBC Auto Ql (U) Negative (12/07/23 9:24 PM) Normal Negative [facility] UA Auto SS WBC LM.HPF (Urine sed) [#/Area] 0-5 /HPF Normal 0-5/HPF [facility] UA Auto SS eGFRon 12-07-2023 eGFR 103 mL/min/1.73 m2 Normal >=59 [facility] Comment on above: Order Comment: Order added by Discern Expert. Performed By: #### 2 544314, 8158247, 4267292, 9476001, 3807776, 50669920 #### [facility] [address] [place] [address] OBSTETRIC ULTRASOUND WHIon 0 10-24-2023 [facility] C Urineon 10-03-2023 Bacteria identified Cx Nom [...] Locations R1: [facility], [address] [place] [address], [address]- , , Normal [facility] Comment on above: Performed By: #### 2 822433, 2902064, 7778989, 6573460, 6168313, 69472193 #### [facility] [address] [place] [address] 16587 Nursing Assessmenton 024 Nursing Assessment [id number] .00TIFF Normal [facility] Auto Diffon 10-01-2023 Basophils/100 WBC (Bld) 0.3 % Normal 0.0-2.0 [facility] Comment on above: Order Comment: Order Added by Discern Expert. Performed By: #### 2 239569, 1320939, 7945073, 7565382, 5052467, 72700093 #### [facility] [address] [place] [address] 42826 Basophils/Leukocytes Auto (Bld) [Pure # fraction] 0.0 E9/L Normal 0.0-0.2 [facility] Comment on above: Order Comment: Order Added by Discern Expert. Performed By: #### 2 344893, 1775867, 9337434, 0124504, 2303382, 86417046 #### [facility] [address] [place] [address]32[address] Eosinophils/100 WBC (Bld) 1.2 % Normal 0.0-8.0 [facility] Comment on above: Order Comment: Order Added by Discern Expert. Performed By: #### 2 411733, 0943634, 7611463, 5477400, 8339838, 30740904 #### [facility] [address] [place] [address] Eosinophils/Leukocytes Auto (Bld) [Pure # fraction] 0.1 E9/L Normal 0.0-0.5 [facility] Comment on above: Order Comment: Order Added by Discern Expert. Performed By: #### 2 801283, 2705306, 3965842, 7413555, 7551816, 46778190 #### [facility] [address] [place] [address] 63934 Lymphocytes/100 WBC (Bld) 18.3 % Normal 14.0-50.0 [facility] Comment on above: Order Comment: Order Added by Discern Expert. Performed By: #### 2 335940, 3880750, 4258377, 5989442, 6208695, 42245814 #### [facility] [address] [place] [address] Lymphocytes/Leukocytes Auto (Bld) [Pure # fraction] 1.1 E9/L Normal 1.0-4.0 [facility] Comment on above: Order Comment: Order Added by Esdras Expert. Performed By: #### 2 434259, 4877080, 6540190, 2733941, 6536506, 33338086 #### [facility] [address] [place] [address] 44671 Monocytes/100 WBC (Bld) 7.6 % Normal 4.0-14.0 [facility] Comment on above: Order Comment: Order Added by Esdras Expert. Performed By: #### 2 376624, 6809711, 7927085, 4262400, 3171427, 27552322 #### [facility] [address] [place] [address] Monocytes/Leukocytes Auto (Bld) [Pure # fraction] 0.5 E9/L Normal 0.2-1.0 [facility] Comment on above: Order Comment: Order Added by Esdras Expert. Performed By: #### 2 413816, 2801630, 8636712, 0918722, 1747027, 45574701 #### [facility] [address] [place] [address] 39916 Neutrophils/100 WBC (Bld) 72.6 % Normal 36.0-75.0 [facility] Comment on above: Order Comment: Order Added by Esdras Expert. Performed By: #### 2 874401, 9500567, 4999715, 2911464, 1317514, 76464681 #### [facility] [address] [place] [address] 94684 Neutrophils/Leukocytes Auto (Bld) [Pure # fraction] 4.6 E9/L Normal 2.0-7.5 [facility] Comment on above: Order Comment: Order Added by Esdras Expert. Performed By: #### 2 529438, 9876752, 2042814, 8476500, 5032913, 37797431 #### [facility] [address] [place] [address] 03549 BMPon 10-01-2023 Anion gap [Moles/Vol] 12 mmol/L Normal 6-16 [facility] Comment on above: Performed By: #### 2 353041, 7868115, 8293340, 4867417, 8735873, 16065239 #### [facility] [address] [place] [address] BUN/Creat Ratio 13 No Units Normal 10-20 [facility] Comment on above: Performed By: #### 2 147150, 5633223, 5522775, 1681459, 8505496, 51736986 #### [facility] [address] [place] [address] Calcium [Mass/Vol] 8.7 mg/dL Low 8.9-11.1 [facility] Comment on above: Performed By: #### 2 504611, 1149260, 9568491, 7275859, 8290317, 33634269 #### [facility] [address] [place] [address] Chloride [Moles/Vol] 109 mmol/L Normal 101-111 [facility] Comment on above: Performed By: #### 2 512527, 1420430, 2768839, 3460829, 0169906, 94051779 #### [facility] [address] [place] [address] CO2 [Moles/Vol] 18 mmol/L Low 21-31 [facility] Comment on above: Performed By: #### 2 973909, 0319220, 1103038, 2317693, 7030407, 97396780 #### [facility] [address] [place] [address] Creatinine [Mass/Vol] 0.6 mg/dL Normal 0.5-1.3 [facility] Comment on above: Performed By: #### 2 881053, 2512743, 6786837, 4146835, 5904898, 30607386 #### [facility] [address] [place] [address] Glucose [Mass/Vol] 72 mg/dL Normal 55-199 [facility] Comment on above: Performed By: #### 2 102540, 2428180, 5450362, 6279388, 7337569, 12855728 #### [facility] [address] [place] [address] Potassium [Moles/Vol] 3.8 mmol/L Normal 3.5-5.3 [facility] Comment on above: Performed By: #### 2 975582, 7329183, 3743856, 6660947, 0171703, 61042494 #### [facility] [address] [place] [address] Sodium [Moles/Vol] 135 mmol/L Normal 135-145 [facility] Comment on above: Performed By: #### 2 864653, 7794236, 1594630, 7181721, 9685109, 14622260 #### [facility] [address] [place] [address] Urea nitrogen [Mass/Vol] 8 mg/dL Normal 5-21 [facility] Comment on above: Performed By: #### 2 176989, 3021988, 0103973, 7533592, 7923192, 26923217 #### [facility] [address] [place] [address] CBC w/ Auto Diffon 4 Erythrocyte distribution width (RBC) [Ratio] 13.7 % Normal 10.9-14.2 [facility] Comment on above: Performed By: #### 2 643635, 9542781, 8822026, 9429097, 3899003, 18510899 #### [facility] [address] [place] [address] Hematocrit (Bld) [Volume fraction] 30.6 % Low 34.0-46.0 [facility] Comment on above: Performed By: #### 2 008934, 2481647, 1318003, 4044885, 8711534, 68705349 #### [facility] [address] [place] [address] Hemoglobin (Bld) [Mass/Vol] 10.2 g/dL Low 12.0-16.0 [facility] Comment on above: Performed By: #### 2 753942, 0004601, 3394253, 2742778, 9247623, 35103492 #### [facility] [address] [place] [address] MCH (RBC) [Entitic mass] 26.9 pg Low 27.0-34.0 [facility] Comment on above: Performed By: #### 2 992649, 8245287, 8825023, 7691222, 9238111, 95753463 #### [facility] [address] [place] [address] MCHC (RBC) [Mass/Vol] 33.3 g/dL Normal 31.4-36.0 [facility] Comment on above: Performed By: #### 2 353174, 9987211, 5865557, 5293683, 8268400, 78474673 #### [facility] [address] [place] [address] MCV (RBC) [Entitic vol] 80.6 fL Normal 80.0-100.0 [facility] Comment on above: Performed By: #### 2 211486, 3286017, 5000343, 7925915, 2811992, 31664356 #### [facility] [address] [place] [address]220[address] Platelet mean volume (Bld) [Entitic vol] 8.4 fL Normal 6.4-10.8 [facility] Comment on above: Performed By: #### 2 609651, 6891696, 0582159, 8129676, 6090170, 89082201 #### [facility] [address] [place] [address] Platelets (Bld) [#/Vol] 246.0 E9/L Normal 150.0-500.0 [facility] Comment on above: Performed By: #### 2 621255, 6804951, 8826191, 3925749, 9670326, 22579485 #### [facility] [address] [place] [address] RBC (Bld) [#/Vol] 3.8 E12/L Low 4.3-5.9 [facility] Comment on above: Performed By: #### 2 175588, 3808175, 4479902, 6923861, 1553720, 43903097 #### [facility] [address] [place] [address] WBC corrected for nucl RBC Auto (Bld) [#/Vol] 6.3 E9/L Normal 4.0-11.0 [facility] Comment on above: Performed By: #### 2 692146, 9774664, 2466994, 9048199, 8863926, 33138120 #### [facility] [address] [place] [address] Consent for Treatmenton Consent for Treatment [id number] Normal [facility] Consent for Treatment [id number] .00TIFF Normal [facility] Consent for Treatment [id number] .00TIFF Normal [facility] Discharge Instructionson Discharge Instructions [id number] .00TIFF Normal [facility] Discharge Instructions [id number] .00TIFF Normal [facility] ED Clinical Summaryon 2023 ED Clinical Summary [address] [address] ED Clinical Summary Person Information Name: ROLA AGUILAR [facility] Age: 28 Years : 1995 Sex: Female Language: South African PCP: Kale RENDON MD Marital Status: Single Phone: [phone] Visit Id: Visit Reason: Rectal bleed; Nausea; [...] 10/01/2023 21:04:09 10/01/2023 21:04:09 10/01/2023 21:04:09 ADDRESS: [address] [place] [address] [place] [id number] PHYS DOC NOTES: MEDICAL INFORMATION: Prescriptions Given: New Medications [id number], [address] [place] [id number], [phone] cephalexin (Keflex 500 mg Cap) 1 Capsules By Mouth every 12 hours for 7 Days. Refills: 0. Medications to Continue Taking That Have Changed [facility]/pharm[facility] #[id number], [address] [place], [place] [id number], [phone] START: ondansetron (ondansetron 4 mg Dis Tab) [...] with No Changes Other Medications acetaminophen-hydroco done ([place] 325 mg-5 mg oral tablet) 1 Tablets By Mouth every 6 hours as needed for pain. Refills: 0. acetaminophen-hydroco done ([place] 325 mg-5 mg oral tablet) 1 Tablets [...] Mouth ev (more content not included)... Normal [facility] ED Note-Physicianon 10-01-19 ED Note-Physician Basic Information Time Seen: Ida DOHarry 10/01/2023 17:14 Chief Complaint pt. is 35 weeks . , sees [facility], hx Crohns with ostomy c/o rectal bleeding with clots since 0200. nausea, no vomiting. has felt baby moving today. History of Present Illness 28 female presents emergency department with concerns for Crohn's flareup. Patient is 35 weeks and does have extensive history of Crohn's disease for which she follows with GI out of [facility] also follows with OB out of [facility]. She states over the last 24 [...] day(s), # 14 cap(s), Refills(s) 0, Pharmacy: [facility]/pharmacy #[id number], 167, cm, 10/01/23 17:11:00 EST, Height/Length [...] day(s), # 10 tab(s), Refills(s) 0, [id number] 167, cm, 10/01/23 17:11:00 EST, [...] EST, Inf (more content not included)... 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 How is this treated? There is no [...] these instructions at home: Medicines ? Take pxju-bru-nnxdojy and prescription medicines only as told by [...] contain jonny (more content not included)... Normal [facility] ED Patient Summaryon 024 ED Patient Summary [address] [address] Patient Discharge Instructions Person Information Name: ROLA AGUILAR Age: 28 Years Arrival Date: 10/01/2023 16:59:16 Discharge Diagnosis: Dehydration; Exacerbation of Crohn's disease; UTI (urinary tract infection) Primary Care Physician: Kale RENDON MD Provider Information Primary Provider: Harry Devine DO Advanced Registered Nurse Maternity:None The exam and treatment you received in the Emergency Department were for an urgent problem and are not intended as complete care. It is important that you follow up with a doctor, nurse practitioner, or physician?s housekeeping assistant for ongoing care. If your symptoms [...] With: Address: When: Your GI physician and [employer]ELOP[employer] MANAGER physician In 3 days 10/04/2023 In the event that this physician does not participate in your insurance network, please consult with your insurance company to find a nearby participating provider. Patient Education Materials: Dehydration, Adult, Llwb-pv-Hmrv; Crohn's Disease A MESSAGE TO ALL PATIENTS REGARDING OPIOIDS PRESCRIPTION OPIOIDS: WHAT YOU NEED TO KNOW Prescription opioids can be used to help relieve tbdukxts-ym-puxawy pain and are often prescribed following a [...] be struggling with addiction, tell your health adult care manager and ask for guidance or call [facility]?S National Helpline at [phone]. (more content not included)... Normal [facility] Hep Func Panelon 10-01-2023 Albumin [Mass/Vol] 3.5 g/dL Normal 3.3-5.0 [facility] Comment on above: Performed By: #### 2 415698, 0261741, 0986734, 0005806, 3750469, 38488077 #### [facility] [address] [place] [address] Albumin/Globulin [Mass ratio] 0.9 {ratio} Low 1.1-2.2 [facility] Comment on above: Performed By: #### 2 716327, 5161780, 8904485, 7007295, 3853359, 44128956 #### [facility] [address] [place] [address] Alk Phos 124 Int._Unit/L High 21-98 [facility] Comment on above: Performed By: #### 2 747925, 5321610, 4626744, 0858156, 0801602, 72804949 #### [facility] [address] [place] [address] ALT 9 Int._Unit/L Normal 6-46 [facility] Comment on above: Performed By: #### 2 503151, 2434753, 2134145, 4950614, 0595176, 92830082 #### [facility] [address] [place] [address] AST 10 Int._Unit/L Normal 5-43 [facility] Comment on above: Performed By: #### 2 738971, 2169444, 6955396, 8250946, 5411901, 07178160 #### [facility] [address] [place] [address] Bili Direct 0.1 mg/dL Normal 0.0-0.4 [facility] Comment on above: Performed By: #### 2 182559, 2284682, 5830091, 5711593, 9035264, 40957112 #### [facility] [address] [place] [address] Bili Indirect 0.4 mg/dL Normal 0.1-0.9 [facility] Comment on above: Performed By: #### 2 403439, 9528069, 5173295, 5812755, 9211407, 14931427 #### [facility] [address] [place] [address] Bili Total 0.5 mg/dL Normal 0.0-1.1 [facility] Comment on above: Performed By: #### 2 603558, 2498909, 0760124, 6668138, 7177572, 01407149 #### [facility] [address] [place] [address] Globulin (S) [Mass/Vol] 3.7 g/dL Normal 1.4-4.0 [facility] Comment on above: Performed By: #### 2 983594, 8771754, 3165357, 2290119, 2644835, 04021692 #### [facility] [address] [place] [address] Protein [Mass/Vol] 7.2 g/dL Normal 6.0-7.8 [facility] Comment on above: Performed By: #### 2 182220, 8103345, 4623792, 7572966, 8405223, 22821375 #### [facility] [address] [place] [address] Inpatient Clinical Summaryon 10-01-2023 Inpatient Clinical Summary [address] [address] Clinical Summary Person Information Name: ROLA AGUILAR [facility] Age: 28 Years : 1995 Sex: Female PCP: Kale RENDON MD Marital Status: Single Phone: [phone] Race: White Ethnicity: Non- or Language: South African Visit Id: Visit Reason: Speciality: Acuity: Obs Enc Type: OB Triage Med Service: Obstetrics Arrival: 10/01/2023 21:18:32 Discharge: 10/01/2023 23:20:00 Dispo Type: Home (Routine DC) Address: [address] [place] [address] [address] [place] [phone] Provider Notes: Diagnosis: Problems Active (09/06/2023) Smoker [...] Return if ruptured membranes or 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 YANNICK Award [...] QR code below. Thank you for choosing [facility] (more content not included)... Normal [facility] Insurance Correspondenceon 0 10-01-2023 Insurance Correspondence [id number] .[id number] Normal [facility] Lipase Levelon 10-01-2023 Lipase Lvl 60 unit/L High 13-58 [facility] Comment on above: Performed By: #### 2 760107, 0596116, 2459388, 8582351, 5907051, 47061345 #### [facility] [address] [place] [address] PT & PTTon 10-01-2023 aPTT Coag (PPP) [Time] 26.6 second(s) Normal 25.1-36.5 [facility] Comment on above: Result Comment: Para [...] the same coagulation reagent and instrumentation as [facility]. Currently there are no coagulation studies available worldwide for children to 14 days, and no normal ranges. Heparin therapeutic range (represented by Anti-Factor Xa activity of 0.2 - 0.4 U/mL) corresponds to PTT of 56.6 - 109.0 sec. Performed By: #### 2 205073, 4868288, 2878854, 5326897, 1879707, 48082566 #### [facility] [address] [place] [address] INR Coag (PPP) [Relative time] 1.0 {INR} Invalid Interpretation Code [facility] Comment on above: Result Comment: INR results are specifically intended to assess patients stabilized on long-term Anticoagulation therapy suggested INR?s ?Less Intensive Anticoagulation? 2.0 ? 3.0 Conventional Range 3.0 ? 4.5 Performed By: #### 2 176492, 5150006, 5126176, 2168724, 0321177, 05294698 #### [facility] [address] [place] [address] PT Coag (PPP) [Time] 11.3 second(s) Normal 9.4-12.5 [facility] Comment on above: Result Comment: 15 [...] the same coagulation reagent and instrumentation as [facility]. Currently there are no coagulation studies available worldwide for children to 14 days, and no normal ranges. Performed By: #### 2 756883, 2947610, 9980696, 4649737, 5035622, 98565904 #### [facility] [address] [place] [address] UA With Cult Reflexon 2023 Bacteria LM Ql (Urine sed) 2+ /HPF Abnormal Trace [facility] Comment on above: Performed By: #### 2 318926, 8430001, 1923810, 1597704, 6476169, 60715140 #### [facility] [address] [place] [address] Bilirubin Ql (U) Negative Normal Negative [facility] Comment on above: Performed By: #### 2 230125, 2266512, 3177990, 4539567, 2318175, 03347942 #### [facility] [address] [place] [address] Clarity (U) CLOUDY Abnormal Clear [facility] Comment on above: Performed By: #### 2 315923, 3200154, 5153346, 8490888, 2598084, 25545019 #### [facility] [address] [place] [address] Color (U) YELLOW Normal Yellow [facility] Comment on above: Performed By: #### 2 885093, 4828357, 1092452, 2468709, 1204104, 81338188 #### [facility] [address] [place] [address] Epithelial cells.squamous LM.HPF (Urine sed) [#/Area] 3-4 Normal 0-2 [facility] Comment on above: Performed By: #### 2 443408, 2680497, 9559348, 6565882, 1032753, 17568907 #### [facility] [address] [place] [address] Glucose Test strip (U) [Mass/Vol] Negative Normal Negative [facility] Comment on above: Performed By: #### 2 175252, 4035915, 9615710, 9336784, 7190401, 21144804 #### [facility] [address] [place] [address] Hemoglobin Ql (U) Negative Normal Negative [facility] Comment on above: Performed By: #### 2 079459, 1885373, 8549753, 4865194, 3435151, 77425021 #### [facility] [address] [place] [address] Ketones (U) [Mass/Vol] Negative Normal Negative [facility] Comment on above: Performed By: #### 2 047107, 8387673, 7194888, 4042336, 0281150, 45347294 #### [facility] [address] [place] [address] [place] .RBC (Bld) [Mass ratio] 0-3 Normal 0-3 [facility] Comment on above: Performed By: #### 2 906382, 9882164, 0370009, 3804165, 2944110, 19273599 #### [facility] [address] [place] [address] Mucus Ql (Urine sed) 1+ Normal [facility] Comment on above: Performed By: #### 2 099920, 3978479, 8287394, 9372855, 3259113, 52005157 #### [facility] [address] [place] [address] Nitrite Ql (U) Negative Normal Negative [facility] Comment on above: Performed By: #### 2 074894, 6380197, 3662072, 2616068, 6635054, 05389040 #### [facility] [address] [place] [address] pH (U) 6.0 [pH] Invalid Interpretation Code 5.0-9.0 [facility] Comment on above: Performed By: #### 2 169018, 7499782, 8579667, 5703211, 6547372, 49778363 #### [facility] [address] [place] [address] Protein (U) [Mass/Vol] TRACE Abnormal Negative [facility] Comment on above: Performed By: #### 2 695753, 3788482, 4790752, 5292889, 4710658, 11570334 #### [facility] [address] [place] [address] Specific gravity (U) [Rel density] >=1.030 Invalid Interpretation Code 1.005-1.030 [facility] Comment on above: Performed By: #### 2 194311, 8502219, 8231515, 4548657, 8015233, 09711073 #### [facility] [address] [place] [address] Type of Urine collection method Clean Catch Normal [facility] Comment on above: Performed By: #### 2 308843, 4860458, 4725198, 9091683, 9457346, 38821224 #### [facility] [address] [place] [address] Urobilinogen Qn (U) 0.2 {Keyla'U}/dL Normal 0.0-1.0 [facility] Comment on above: Performed By: #### 2 881910, 7596529, 4539155, 2418657, 3324134, 21254617 #### [facility] [address] [place] [address] WBC Auto Ql (U) 1+ Abnormal Negative [facility] Comment on above: Performed By: #### 2 763113, 3608407, 5877406, 5984880, 7599759, 54953506 #### [facility] [address] [place] [address] WBC LM.HPF (Urine sed) [#/Area] 16-25 Abnormal 0-5 [facility] Comment on above: Performed By: #### 2 589189, 3800436, 8046948, 7894234, 6126548, [id number] #### [facility] [address] [place] [address] eGFRon 10-01-2023 GFR/1.73 sq M.predicted among non-blacks MDRD (S/P/Bld) [Vol rate/Area] mL/min/{1.73_m2} Normal >=59 [facility] Comment on above: Order Comment: Order added by Discern Expert. Performed By: #### 2 550807, 4067401, 2754668, 3681825, 4361977, 24876446 #### [facility] [address] [place] [address] ED Note-Physicianon 09-21-20 ED Note-Physician Basic Information [...] sees Dr. Costa on the [facility]. Review of Systems A 10 point review of systems is negative except as noted above. Medical and Surgical History: Reviewed and noted Social history: Lives at home Tobacco: Denies Physical Exam Vitals & Measurements T: 36.8 ?C(Oral) HR: 80(Monitored) RR: 16 BP: 122/80 SpO2: 98% HT: 167 cm WT: 91.9 kg BMI: 32.95 Pleasant 28-year-old female alert and oriented x 3 [place] Coma Scale 15. Chest wall is nontender. [...] Making The case was discussed with our plant mechanic Dr. Lopez. Once the patient's laboratory studies [...] 10 mg= 1 tab(s), Oral, q6hr, PRN [place] 325 mg-5 mg oral tablet, 1 tab(s), Oral, q6hr, PRN, Not taking: not indicated [place] 325 mg-5 mg oral tablet, 1 tab(s), [...] Alcohol Use, (more content not included)... Normal [facility] Comment on above: Result Comment: Elec tronically Signed By: Heriberto Cervantes MD\.br\Date and Time Signed: 09/21/23 01:13 EST\.br\Electronically Co-Signed By: aMrtha Pro CMA\.br\Date and Time Co-Signed: 10/07/23 07:57 EST Nursing Assessmenton 023 Nursing Assessment [id number]# 1.00TIFF Normal [facility] C Urineon 09-08-2023 Bacteria identified Cx Nom (U) Microbiology PROCEDURE: Urine Culture [R1] SOURCE: U CleanCatch BODY SITE: COLLECTED DATE/TIME: 09/06/2023 16:14 EST RECEIVED DATE/TIME: 09/06/2023 17:39 EST START DATE/TIME: 09/06/2023 17:39 EST FREE TEXT SOURCE: Garcia GILES, Heriberto Cervantes MD, Heriberto FINAL REPORTS Final Report [] Verified Date/Time: 09/08/2023 07:27 EST <10,000 cfu/ml Mixed skin contaminants Performing Locations R1: This test was performed at: [facility], [address] [place] [address], [address] , , [facility] Comment on above: Performed By: #### 2 961652, 8462779, 0877735, 8569872, 6787465, 67665460 #### [facility] [address] [place] [address] XR Spine Lumbosacral 2 or 3 Viewson [...] Cervantes FINAL REPORT Dictated: 09/07/2023 9:36 am Anshul Cardoza MD Signed (Electronic Signature): 09/07/2023 9:36 am Signed by: Anshul Cardoza MD Transcribed by: CLARICE Technologist: DON Technical Comments Radiation Dose: Ka,r in mGy = na DAP = na Normal [facility] ABO/Rhon 09-06-2023 ABO/Rh Positive Invalid Interpretation Code [facility] Comment on above: Performed By: #### 1 [id number] #### [facility] [address] [place] [address] ABO/Rh History Checkon 09-06 ABO/Rh History Check Verified Hx Blood Type Normal [facility] Comment on above: Performed By: #### 1 3168881 #### [facility] [address] [place] [address] ABSCon 09-06-2023 ABSC Gel Interp Negative Normal [facility] Comment on above: Performed By: #### 1 6173731 #### [facility] [address] [place] [address] BLOOD BANKOrdered By: Martha Schultz on 09-06-2023 ABO/Rh Interp Positive Invalid Interpretation Code [facility] BB Subsection ABSC Gel Interp Negative (09/06/23 4:12 PM) Normal [facility] BB Subsection BMPon 09-06-2023 Anion gap [Moles/Vol] 11 mmol/L Normal 6-16 [facility] Comment on above: Performed By: #### 1 8587823, 1111491, 6415022, 8800393 ####[facility] [address] [place] [address] BUN/Creat Ratio 12 No Units Normal 10-20 [facility] Comment on above: Performed By: #### 1 1673629, 4959586, 3781533, 7979326 ####[facility] [address] [place] [address] Calcium [Mass/Vol] 8.4 mg/dL Low 8.9-11.1 [facility] Comment on above: Performed By: #### 1 2208058, 4963538, 0504899, 6448480 ####[facility] [address] [place] [address] Chloride [Moles/Vol] 108 mmol/L Normal 101-111 [facility] Comment on above: Performed By: #### 1 6481342, 0875029, 2314378, 3197047 ####[facility] [address] [place] [address] CO2 [Moles/Vol] 21 mmol/L Normal 21-31 [facility] Comment on above: Performed By: #### 1 3106869, 6192979, 0985459, 9429174 ####[facility] [address] [place] [address] Creatinine [Mass/Vol] 0.6 mg/dL Normal 0.5-1.3 [facility] Comment on above: Performed By: #### 1 2930042, 8905335, 8955295, 2291042 ####[facility] [address] [place] [address] Glucose [Mass/Vol] 87 mg/dL Normal 55-199 [facility] Comment on above: Performed By: #### 1 0702964, 2755070, 2801800, 4832116 ####[facility] [address] [place] [address] Potassium [Moles/Vol] 3.7 mmol/L Normal 3.5-5.3 [facility] Comment on above: Performed By: #### 1 6991813, 2491984, 7797172, 5029350 ####[facility] [address] [place] [address] Sodium [Moles/Vol] 136 mmol/L Normal 135-145 [facility] Comment on above: Performed By: #### 1 3542183, 4293635, 2017817, 9012047 ####[facility] [address] [place] [address] Urea nitrogen [Mass/Vol] 7 mg/dL Normal 5-21 [facility] Comment on above: Performed By: #### 1 6573231, 1684410, 7545818, 9936937 ####[facility] [address] [place] [address] BUNon 09-06-2023 Urea nitrogen [Mass/Vol] 7 mg/dL Normal 5-21 [facility] Comment on above: Performed By: #### 2 822771, 02826250, 00885707, 0018634, 8147962, 9570929, 5509478, 2287772 ####[facility] [address] [place] [address] Blood Bank ID#on 09-06-2023 BBID# [id number] Invalid Interpretation Code [facility] Comment on above: Performed By: #### 1 8689698 #### [facility] [address] [place] [address] CBC w/Indiceson 09-06-2023 Erythrocyte distribution width (RBC) [Ratio] 13.9 % Normal 10.9-14.2 [facility] Comment on above: Performed By: #### 2 711678, 19552465, 77031414, 5996591, 4643390, 4086469, 4696179, 2971696 ####[facility] [address] [place] [address] Hematocrit (Bld) [Volume fraction] 30.7 % Low 34.0-46.0 [facility] Comment on above: Performed By: #### 2 047103, 17525947, 33983804, 2666068, 8791800, 4742054, 0359653, 7843744 ####[facility] [address] [place] [address] Hemoglobin (Bld) [Mass/Vol] 10.4 g/dL Low 12.0-16.0 [facility] Comment on above: Performed By: #### 2 968262, 68574482, 68430548, 3052763, 5795700, 3049478, 2704489, 7131686 ####[facility] [address] [place] [address] MCH (RBC) [Entitic mass] 28.3 pg Normal 27.0-34.0 [facility] Comment on above: Performed By: #### 2 304486, 37771948, 82439610, 1395251, 8784787, 8359289, 7860536, 6850404 ####[facility] [address] [place] [address] MCHC (RBC) [Mass/Vol] 33.8 g/dL Normal 31.4-36.0 [facility] Comment on above: Performed By: #### 2 640507, 40440081, 15728382, 2862415, 1104749, 5004236, 7134794, 2208452 ####[address] [place] [address] MCV (RBC) [Entitic vol] 83.7 fL Normal 80.0-100.0 [facility] Comment on above: Performed By: #### 2 736550, 82288855, 91661470, 3980703, 0223804, 7247005, 9051664, 3363524 ####[address] [place] [address] Platelet mean volume (Bld) [Entitic vol] 8.1 fL Normal 6.4-10.8 [facility] Comment on above: Performed By: #### 2 288195, 18097483, 97134392, 6634813, 8683563, 6609087, 2951930, 2893872 ####[address] [address] Platelets (Bld) [#/Vol] 218.0 E9/L Normal 150.0-500.0 [facility] Comment on above: Performed By: #### 2 333152, 82241873, 77328768, 5941984, 2334413, 9802827, 6663421, 3470413 ####[address] [address] RBC (Bld) [#/Vol] 3.7 E12/L Low 4.3-5.9 [facility] Comment on above: Performed By: #### 2 662317, 47611341, 37057457, 4727951, 7511071, 1973747, 1135533, 6446274 ####[address] [place] [address] WBC corrected for nucl RBC Auto (Bld) [#/Vol] 5.2 E9/L Normal 4.0-11.0 [facility] Comment on above: Performed By: #### 2 225738, 10491525, 90277288, 7710828, 6988250, 0527990, 8891145, 6321177 ####[facility] [address] [place] [address] CHEMISTRYOrdered By: SYSTEM SYSTEM on 09-06-2023 Albumin [...] 26.7 s Normal 25.1 - 36.5 second(s) [facility] Auto Coag Comment on above: Interpretive Data: [...] obtained from a study by katie Vinson alAna prepared from 1437 samples obtained at 7 different centers using the same coagulation reagent and instrumentation as [facility]. Currently there are no coagulation studies available worldwide for children to 14 days, and no normal ranges. Heparin therapeutic range (represented by Anti-Factor Xa activity of 0.2 - 0.4 U/mL) corresponds to PTT of 56.6 - 109.0 sec. Fibrinogen Coag (PPP) [Mass/Vol] 420 mg/dL High 200 - 393 mg/dL [facility] Auto Coag INR Coag (PPP) [Relative time] 1.0 {INR} Invalid Interpretation Code [facility] Auto Coag Comment on above: Interpretive Data: I NR results are specifically intended to assess patients stabilized on long-term Anticoagulation therapy suggested INR s Less Intensive Anticoagulation 2.0 3.0 Conventional Range 3.0 4.5 PT Coag (PPP) [Time] 10.7 s Normal 9.4 - 1 2.5 second(s) [facility] Auto Coag Comment on above: Interpretive Data: [...] the same coagulation reagent and instrumentation as [facility]. Currently there are no coagulation studies available worldwide for children to 14 days, and no normal ranges. Consent for Treatment 08-23 Consent for Treatment [id number]#1 .00TIFF Normal [facility] Consent for Treatment [id number]#1 .00TIFF Normal [facility] Creatinineon 09-06-2023 Creatinine [Mass/Vol] 0.6 mg/dL Normal 0.5-1.3 [facility] Comment on above: Performed By: #### 2 697871, 12884513, 46339283, 9457222, 0085573, 0160634, 3890049, 2923886 ####[facility] [address] [place] [address] Discharge Instructionson Discharge Instructions [id number]#1 .00TIFF [facility] ED Traumaon 09-06-2023 ED Trauma [id number]# 1.00TIFF [facility] Fibrinogenon 09-06-2023 Fibrinogen Coag (PPP) [Mass/Vol] 420 mg/dL High 200-393 [facility] Comment on above: Performed By: #### 2 963201, 82068864, 14609081, 4838857, 2994524, 8461256, 3735039, 3054697 ####[facility] [address] [place] [address] HEMATOLOGYOrdered By: Martha Schultz on 09-06-2023 Erythrocyte distribution width (RBC) [Ratio] 13.9 % Normal 10.9 - 14.2 % [facility] HemeAutoSS Hematocrit (Bld) [Volume fraction] 30.7 % Low 34.0 - 46.0 % FT HemeAutoSS Hemoglobin (Bld) [Mass/Vol] 10.4 g/dL Low 12.0 - 16.0 gm/dL FT [facility] MCH (RBC) [Entitic mass] 28.3 pg Normal 27.0 - 34.0 pg FT [facility] MCHC (RBC) [Mass/Vol] 33.8 g/dL Normal 31.4 - 36.0 gm/dL [facility] HemeAutoSS MCV (RBC) [Entitic vol] 83.7 fL Normal 80.0 - 100.0 fL [facility] HemeAutoSS Platelet mean volume (Bld) [Entitic vol] 8.1 fL Normal 6.4 - 10.8 fL [facility] HemeAutoSS Platelets (Bld) [#/Vol] 218.0 E9/L Normal 150.0 - 500.0 E9/L [facility] HemeAutoSS RBC (Bld) [#/Vol] 3.7 E12/L Low 4.3 - 5.9 E12/L [facility] HemeAutoSS WBC corrected for nucl RBC Auto (Bld) [#/Vol] 5.2 E9/L Normal 4.0 - 11.0 E9/L [facility] HemeAutoSS Hep Func Panelon 09-06-2023 Albumin [Mass/Vol] 3.5 g/dL Normal 3.3-5.0 [facility] Comment on above: Performed By: #### 1 7882279, 9874608, 7058601, 9794547 ####[facility] [address] [place] [address] Albumin/Globulin [Mass ratio] 1.0 {ratio} Low 1.1-2.2 [facility] Comment on above: Performed By: #### 1 2767815, 7279974, 1266729, 2545330 ####[facility] [address] [place] [address] Alk Phos 89 Int._Unit/L Normal 21-98 [facility] Comment on above: Performed By: #### 1 2788975, 4032196, 7692378, 2712009 ####[facility] [address] [place] [address] ALT 12 Int._Unit/L Normal 6-46 [facility] Comment on above: Performed By: #### 1 8360063, 9409201, 2048207, 2578249 ####[facility] [address] [place] [address] AST 12 Int._Unit/L Normal 5-43 [facility] Comment on above: Performed By: #### 1 5863192, 8381309, 4430235, 9408831 ####[facility] [address] [place] [address] Bili Direct 0.1 mg/dL Normal 0.1-0.4 [facility] Comment on above: Performed By: #### 1 6893156, 1914677, 4135462, 2005934 ####[address] [place] [address] Bili Indirect 0.3 mg/dL Normal 0.1-0.9 [facility] Comment on above: Performed By: #### 1 8228262, 9416917, 8662558, 7832203 ####[address] [place] [address] Bili Total 0.4 mg/dL Normal 0.0-1.1 [facility] Comment on above: Performed By: #### 1 7202085, 2843394, 5297652, 2839460 ####[address] [address] Globulin (S) [Mass/Vol] 3.4 g/dL Normal 1.4-4.0 [facility] Comment on above: Performed By: #### 1 2279824, 4369665, 9979306, 7453944 ####[address] [place] [address] Protein [Mass/Vol] 6.9 g/dL Normal 6.0-7.8 [facility] Comment on above: Performed By: #### 1 2091980, 3492624, 2407711, 7660532 ####[address] [address] Inpatient Clinical Summaryon 09-06-2023 Inpatient Clinical Summary [address] [address] Clinical Summary Person Information Name: ROLA AGUILAR [place] Age: 28 Years : 1995 Sex: Female PCP: Kale RENDON MD Marital Status: Single Phone: [phone] Race: White Ethnicity: Non- or Language: South African Visit Id: Visit Reason: Speciality: Acuity: Obs Enc Type: OB Triage Med Service: Obstetrics Arrival: 09/06/2023 16:40:25 Discharge: 09/06/2023 23:18:00 Dispo Type: Home (Routine DC) Address: [address] [place] [address] [address] [place] [id number] Provider Notes: Diagnosis: Problems Active (09/06/2023) Smoker [...] This Visit Final Med List: acetaminophen-hydroco done ([place] 325 mg-5 mg oral tablet) 1 Tablets By Mouth every 6 hours as needed for pain. Refills: 0. acetaminophen-hydroco done ([place] 325 mg-5 mg oral tablet) 1 Tablets [...] or vaginal bleeding Patient Education Information: Normal [facility] Inpatient Patient Summaryon 09-06-2023 Inpatient Patient Summary [address] [address] Patient Discharge Instructions PERSON INFORMATION Name: ROLA [...] with No Changes Other Medications acetaminophen-hydroco done ([place] 325 mg-5 mg oral tablet) 1 Tablets By Mouth every 6 hours as needed for pain. Refills: 0. Last Dose: ____Next Dose: ____ acetaminophen-hydroco done ([place] 325 mg-5 mg oral tablet) 1 Tablets [...] Dose: ____Next Dose: ____ Pharmacy Information: [facility] PATIENT EDUCATION INFORMATION Instructions: Medication Leaflets: You may receive a survey fro (more content not included)... Normal [facility] Insurance Correspondenceon 1 11-07-2022 Insurance Correspondence [id number]#1 .00TIFF Normal [facility] - Chemistry and C hemistry [...] 09-06-2023 Lipase Lvl 84 unit/L High 13-58 [facility] Comment on above: Performed By: #### 1 6898747, 5769017, 0470985, 4403099 ####[facility] [address] [place] [address] Lyteson 12-15-2023 Anion gap [Moles/Vol] 11 mmol/L Normal 6-16 [facility] Comment on above: Performed By: #### 2 589550, 84945041, 06637875, 9788333, 0282381, 6751882, 7294546, 8207172 ####[facility] [address] [place] [address] Chloride [Moles/Vol] 108 mmol/L Normal 101-111 [facility] Comment on above: Performed By: #### 2 081663, 67130925, 65306203, 7243184, 8331792, 0586132, 5256632, 0243167 ####[facility] [address] [place] [address] CO2 [Moles/Vol] 21 mmol/L Normal 21-31 [facility] Comment on above: Performed By: #### 2 206107, 02393190, 04438810, 4984158, 8601615, 7978430, 3807657, 8973898 ####[facility] [address] [place] [address] Potassium [Moles/Vol] 3.7 mmol/L Normal 3.5-5.3 [facility] Comment on above: Performed By: #### 2 346332, 21832657, 68417841, 1850108, 9332057, 1954851, 7918181, 9732435 ####[facility] [address] [place] [address] Sodium [Moles/Vol] 136 mmol/L Normal 135-145 [facility] Comment on above: Performed By: #### 2 776076, 01829009, 69063736, 1457807, 1297520, 6751356, 0338793, 9679514 ####[facility] [address] [place] [address] Monitor Recordon 09-06-2023 Monitor Record [id number]#1 .00TIFF Normal [facility] No Panel InformationOrdered By: SYSTEM SYSTEM on 09-06-2023 eGFR mL/min/1.73 m2 Normal >=59mL/min/1. 7 3 m2 Remisol Chem PT & PTTon 09-06-2023 aPTT Coag (PPP) [Time] 26.7 second(s) Normal 25.1-36.5 [facility] Comment on above: Result Comment: Para [...] the same coagulation reagent and instrumentation as [facility]. Currently there are no coagulation studies available worldwide for children to 14 days, and no normal ranges. Heparin therapeutic range (represented by Anti-Factor Xa activity of 0.2 - 0.4 U/mL) corresponds to PTT of 56.6 - 109.0 sec. Performed By: #### 2 330996, 52877562, 90421762, 0640713, 7302091, 9719003, 1502128, 6954599 ####[facility] [address] [place] [address] INR Coag (PPP) [Relative time] 1.0 {INR} Invalid Interpretation Code [facility] Comment on above: Result Comment: INR results are specifically intended to assess patients stabilized on long-term Anticoagulation therapy suggested INR?s ?Less Intensive Anticoagulation? 2.0 ? 3.0 Conventional Range 3.0 ? 4.5 Performed By: #### 2 935611, 34519709, 43923077, 8877552, 7875877, 2357649, 9227228, 3713091 ####[facility] [address] [place] [address] PT Coag (PPP) [Time] 10.7 second(s) Normal 9.4-12.5 [facility] Comment on above: Result Comment: 15 [...] the same coagulation reagent and instrumentation as [facility]. Currently there are no coagulation studies available worldwide for children to 14 days, and no normal ranges. Performed By: #### 2 946621, 13650384, 38629445, 9524642, 8601466, 4752403, 7955616, 3565178 ####[facility] [address] [place] [address] RAD - Consent to Procedureon 09-06-2023 RAD - Consent to Procedure [id number]# 1.00TIFF Normal [facility] RAD - Preliminary Radiology Reporton 09-06-2023 RAD - Preliminary Radiology Report [id number]# 1.00TIFF Normal [facility] UA With Cult Reflexon 2022 Bacteria LM Ql (Urine sed) TRACE Normal Trace [facility] Comment on above: Performed By: #### 2 714722, 5999530, 8549759, 7697061, 0939120, 24715421 #### [facility] [address] [place] [address] Bilirubin Ql (U) Negative Normal Negative [facility] Comment on above: Performed By: #### 2 433078, 9481775, 1959455, 6225910, 5722403, 58513434 #### [facility] [address] [place] [address] Clarity (U) SL CLOUDY Invalid Interpretation Code [facility] Comment on above: Performed By: #### 2 808020, 9180494, 8421962, 0628383, 6743406, 99992313 #### [facility] [address] [place] [address] Color (U) YELLOW Normal Yellow [facility] Comment on above: Performed By: #### 2 325338, 5395161, 0939113, 0335470, 3671855, 28966950 #### [facility] [address] [place] [address] Epithelial cells.squamous LM.HPF (Urine sed) [#/Area] /[HPF] Normal 0-2 [facility] Comment on above: Performed By: #### 2 736345, 6592713, 4939545, 2043436, 1856562, 90695626 #### [facility] [address] [place] [address] Glucose Test strip (U) [Mass/Vol] Negative Normal Negative [facility] Comment on above: Performed By: #### 2 168388, 7284360, 1880866, 5605646, 8199268, 34382424 #### [facility] [address] [place] [address] Hemoglobin Ql (U) Negative Normal Negative [facility] Comment on above: Performed By: #### 2 140784, 8060500, 4585257, 8935595, 2256122, 40052681 #### [facility] [address] [place] [address] Ketones (U) [Mass/Vol] Negative Normal Negative [facility] Comment on above: Performed By: #### 2 709815, 6877531, 4296350, 8402601, 4382125, 81669266 #### [facility] [address] [place] [address] [place].plasma/[place] .RBC (Bld) [Mass ratio] 0-3 Normal 0-3 [facility] Comment on above: Performed By: #### 2 167785, 7336806, 0058555, 1079367, 2066323, 10576429 #### [facility] [address] [place] [address] Mucus Ql (Urine sed) TRACE Normal [facility] Comment on above: Performed By: #### 2 781507, 2312499, 2765472, 1423302, 0610629, 20136945 #### [facility] [address] [place] [address] Nitrite Ql (U) Negative Normal Negative [facility] Comment on above: Performed By: #### 2 085129, 5692414, 7786952, 7255796, 7158502, 56080408 #### [facility] [address] [place] [address] pH (U) 6.5 [pH] Invalid Interpretation Code 5.0-9.0 [facility] Comment on above: Performed By: #### 2 163178, 1423447, 7231339, 1520148, 4542823, 49747729 #### [facility] [address] [place] [address] Protein (U) [Mass/Vol] Negative Normal Negative [facility] Comment on above: Performed By: #### 2 173246, 4452246, 3015394, 7791222, 9941669, 96163901 #### [facility] [address] [place] [address] Specific gravity (U) [Rel density] <=1.005 Invalid Interpretation Code 1.005-1.030 [facility] Comment on above: Performed By: #### 2 823552, 3153837, 7321687, 0691145, [id number], [id number] #### [facility] [address] [place] [address] Type of Urine collection method Clean Catch Normal [facility] Comment on above: Performed By: #### 2 654084, 0844326, 2739275, 1471140, 5988988, 00458084 #### [facility] [address] [place] [address] Urobilinogen Qn (U) 0.2 {Keyla'U}/dL Normal 0.0-1.0 [facility] Comment on above: Performed By: #### 2 269521, 7511279, 7100029, 5738601, 0002413, 88227891 #### [facility] [address] [place] [address] WBC Auto Ql (U) 2+ Abnormal Negative [facility] Comment on above: Performed By: #### 2 924031, 9802761, 0043211, 2427620, 7323605, 78146440 #### [facility] [address] [place] [address] WBC LM.HPF (Urine sed) [#/Area] 6-15 Abnormal 0-5 [facility] Comment on above: Performed By: #### 2 133191, 4545323, 7776906, 7814759, 7275862, 82587712 #### [facility] [address] [place] [address] URINALYSISOrdered By: Espinoza Mason on 09-06-2023 Bacteria [...] PM) Normal Negative [facility] UA Auto SS [place].plasma/[place] .RBC (Bld) [Mass ratio] 0-3 /HPF Normal [...] Desc Clean Catch (09/06/23 4:14 PM) Normal [facility] UA Auto SS Urobilinogen Qn (U) 0.8374520 {Keyla'U}/dL Normal 0.0 - 1.0 EU/dL [facility] UA Auto SS WBC Auto Ql (U) 2+ *ABN* (09/06/23 4:14 PM) Invalid Interpretation Code Negative [facility] UA Auto SS WBC LM.HPF (Urine sed) [...] Cervantes FINAL REPORT Dictated: 09/06/2023 5:52 pm Signer Anshul GILES Signed (Electronic Signature): 09/06/2023 5:52 pm Signed by: Anshul Cardoza MD Transcribed by: CLARICE Technologist: MICHAEL Technical Comments SUSHMA 11/06/22 History 2 Technical Comments Para 1 Placenta Grade 0 Positioning Transverse Amniotic Fluid Volume Low Normal Normal [facility] Uric Acidon 09-06-2023 Urate [Mass/Vol] 4.9 mg/dL Normal 2.2-7.4 [facility] Comment on above: Performed By: #### 2 888995, 37304246, 78757705, 5766212, 7765412, 1255042, 2662114, 6267712 ####[facility] [address] [place] [address] eGFRon 09-06-2023 GFR/1.73 sq M.predicted among non-blacks MDRD (S/P/Bld) [Vol rate/Area] mL/min/{1.73_m2} Normal >=59 [facility] Comment on above: Order Comment: Order added by Discern Expert. Performed By: #### 1 5218230, 2707477, 7876593, 0206249 ####[facility] [address] [place] [address] GFR/1.73 sq M.predicted among non-blacks MDRD (S/P/Bld) [Vol rate/Area] mL/min/{1.73_m2} Normal >=59 [facility] Comment on above: Order Comment: Order added by Discern Expert. Performed By: #### 2 708279, 46620128, 39868593, 2164543, 2767816, 5484278, 2112446, 2694952 ####[facility] [address] [place] [address] URINE OB DIP B/Oon Glucose Ql (U) Negative Neg mg/dL [facility] Protein.monoclonal (U) [Mass/Vol] Negative Neg mg/dL [facility] URINE OB DIP B/Oon 3 Glucose Ql (U) Negative Neg mg/dL [facility] Protein.monoclonal (U) [Mass/Vol] Negative Neg mg/dL [facility] OBSTETRIC ULTRASOUND WHIon 1 [facility] C. trachomatis+N. gonorrhoea e DNA CORONA+probe Ql (Unsp spec)on 07-05-2023 C. trachomatis rRNA CORONA+probe Ql (Unsp spec) Negative Negative for Chlamydia trachomatis by amplificaton [facility] N. gonorrhoeae rRNA CORONA+probe Ql (Unsp spec) Negative Negative for Neisseria gonorrhoeae by amplification [facility] CBC panel Auto (Bld)on 07-05 Erythrocyte distribution width (RBC) [Ratio] 17.1 % High 11.5 - 15.0 % [facility] Hematocrit (Bld) [Volume fraction] 32.3 % Low 36.0 - 46.0 % [facility] Hemoglobin (Bld) [Mass/Vol] 10.5 g/dL Low 11.5 - 15.5 g/dL [facility] MCH (RBC) [Entitic mass] 27.9 pg 26.0 - 34.0 pg [facility] MCHC (RBC) [Mass/Vol] 32.5 g/dL 30.5 - 36.0 g/dL [facility] MCV (RBC) [Entitic vol] 85.9 fL 80.0 - 100.0 fL [facility] Nucleated RBC (Bld) [#/Vol] <0.01 k/uL [facility] Platelet mean volume (Bld) [Entitic vol] 9.8 fL 9.0 - 12.7 fL [facility] Platelets (Bld) [#/Vol] 231 10*3/uL 150 - 400 k/uL [facility] RBC (Bld) [#/Vol] 3.76 10*6/uL Low 3.90 - 5.2 0 m/uL [facility] WBC (Bld) [#/Vol] 5.04 10*3/uL 3.70 - 11. 00 k/uL [facility] URINE OB DIP B/Oon 3 Glucose Ql (U) Negative Neg mg/dL [facility] Protein.monoclonal (U) [Mass/Vol] Negative Neg mg/dL [facility] C Urineon 05-27-2023 Bacteria identified Cx Nom [...] Locations R1: This test was performed at: [facility], [address] [place] [address], [facility]- , , [facility] Comment on above: Performed By: #### 2 650512, [id number] ####[facility] [address] [place] [address] ED Note-Physicianon 05-26-20 23 ED Note-Physician Basic Information Time Seen: Jess [...] of setting up to see a new GENETIC COUNSELOR. She states she has had an ultrasound [...] 6.0, hemogl (more content not included)... Normal [facility] Comment on above: Result Comment: Elec tronically Signed By: Jess Gunn PA-C\.br\Date and Time Signed: 05/26/23 01:27 EDT\.br\Electronically Co-Signed By: Alex Sanchez DO\.br\Date and Time Co-Signed: 05/26/23 02:19 EDT Auto Diffon 05-25-2023 Basophils/100 WBC (Bld) 0.5 % Normal 0.0-2.0 [facility] Comment on above: Order Comment: Order Added by Discern Expert. Performed By: #### 2 438898, 7961345, 0995328, 0447079, 3006884, 90157902 #### [facility] [address] [place] [address] Basophils/Leukocytes Auto (Bld) [Pure # fraction] 0.0 E9/L Normal 0.0-0.2 [facility] Comment on above: Order Comment: Order Added by Discern Expert. Performed By: #### 2 815728, 7476046, 1065700, 7399780, 3316070, 07969461 #### [facility] [address] [place] [address] Eosinophils/100 WBC (Bld) 2.0 % Normal 0.0-8.0 [facility] Comment on above: Order Comment: Order Added by Discern Expert. Performed By: #### 2 016405, 4048300, 4841096, 7730591, 7973533, 29858913 #### [facility] [address] [place] [address] Eosinophils/Leukocytes Auto (Bld) [Pure # fraction] 0.1 E9/L Normal 0.0-0.5 [facility] Comment on above: Order Comment: Order Added by Esdras Expert. Performed By: #### 2 648486, 4503666, 7399874, 7650494, 5731292, 25104598 #### [facility] [address] [place] [address] Lymphocytes/100 WBC (Bld) 22.6 % Normal 14.0-50.0 [facility] Comment on above: Order Comment: Order Added by Discern Expert. Performed By: #### 2 193382, 5189424, 5738904, 9883637, 6847741, 01173123 #### [facility] [address] [place] [address] Lymphocytes/Leukocytes Auto (Bld) [Pure # fraction] 1.4 E9/L Normal 1.0-4.0 [facility] Comment on above: Order Comment: Order Added by Discern Expert. Performed By: #### 2 583766, 0463161, 1318267, 1872537, 1597479, 89642693 #### [facility] [address] [place] [address] Monocytes/100 WBC (Bld) 8.7 % Normal 4.0-14.0 [facility] Comment on above: Order Comment: Order Added by Discern Expert. Performed By: #### 2 750722, 6287580, 8080549, 1769747, 7852364, 26615700 #### [facility] [address] [place] [address] Monocytes/Leukocytes Auto (Bld) [Pure # fraction] 0.5 E9/L Normal 0.2-1.0 [facility] Comment on above: Order Comment: Order Added by Discern Expert. Performed By: #### 2 863502, 9647203, 5299609, 5692637, 9529353, 48735942 #### [facility] [address] [place] [address] Neutrophils/100 WBC (Bld) 66.2 % Normal 36.0-75.0 [facility] Comment on above: Order Comment: Order Added by Discern Expert. Performed By: #### 2 484731, 5546361, 3624323, 6694587, 1602665, 90789542 #### [facility] [address] [place] [address] Neutrophils/Leukocytes Auto (Bld) [Pure # fraction] 4.0 E9/L Normal 2.0-7.5 [facility] Comment on above: Order Comment: Order Added by Discern Expert. Performed By: #### 2 152096, 3680037, 7926971, 1359763, 8611399, 79872486 #### [facility] [address] [place] [address] BMPon 05-25-2023 Creatinine [Mass/Vol] 0.5 mg/dL Normal 0.5-1.3 [facility] Comment on above: Performed By: #### 2 956538, 4144106, 8230579, 0511773, 5436327, 14998138 #### [facility] [address] [place] [address] Urea nitrogen [Mass/Vol] 9 mg/dL Normal 5-21 [facility] Comment on above: Performed By: #### 2 513580, 0224017, 9328636, 6514936, 5957389, 16213204 #### [facility] [address] [place] [address] Urea nitrogen/Creatinine [Mass ratio] 18 No Units Normal 10-20 [facility] Comment on above: Performed By: #### 2 027106, 3351226, 5400204, 4276782, 2709608, 37762848 #### [facility] [address] [place] [address] Anion gap [Moles/Vol] 8 mmol/L Normal 6-16 [facility] Comment on above: Performed By: #### 2 542637, 5556110, 2128820, 9065106, 2499176, 61507190 #### [facility] [address] [place] [address] Calcium [Mass/Vol] 8.4 mg/dL Low 8.9-11.1 [facility] Comment on above: Performed By: #### 2 776571, 4390930, 0045031, 1630748, 5921509, 83759050 #### [facility] [address] [place] [address] Chloride [Moles/Vol] 109 mmol/L Normal 101-111 [facility] Comment on above: Performed By: #### 2 372812, 9570820, 4446520, 2703427, 3567618, 88356199 #### [facility] [address] [place] [address] CO2 [Moles/Vol] 21 mmol/L Normal 21-31 [facility] Comment on above: Performed By: #### 2 993411, 4899221, 1175619, 8907758, 1598404, 39188159 #### [facility] [address] [place] [address] Glucose [Mass/Vol] 81 mg/dL Normal 55-199 [facility] Comment on above: Result Comment: If t his glucose result represents a fasting glucose, interpretation should refer to the following reference range: 55-99 mg/dL Performed By: #### 2 938529, 5122277, 6473436, 4603798, 0054824, 48938363 #### [facility] [address] [place] [address] Potassium [Moles/Vol] 3.4 mmol/L Low 3.5-5.3 [facility] Comment on above: Performed By: #### 2 080520, 6091659, 1098681, 7601862, 1876006, 27726232 #### [facility] [address] [place] 5605[address] Sodium [Moles/Vol] 135 mmol/L Normal 135-145 [facility] Comment on above: Performed By: #### 2 755919, 1788637, 0979756, 6712907, 5417672, 25252210 #### [facility] [address] [place] [address] CBC w/ Auto Diffon 3 Erythrocyte distribution width (RBC) [Ratio] 17.3 % High 10.9-14.2 [facility] Comment on above: Performed By: #### 2 457922, 6270648, 3492308, 0043864, 8612004, 41832789 #### [facility] [address] [place] [address] Hematocrit (Bld) [Volume fraction] 35.6 % Normal 34.0-46.0 [facility] Comment on above: Performed By: #### 2 463022, 5832838, 8776406, 2575107, 5237205, 47974838 #### [facility] [address] [place] [address] Hemoglobin (Bld) [Mass/Vol] 12.0 g/dL Normal 12.0-16.0 [facility] Comment on above: Performed By: #### 2 235340, 7163297, 6001678, 8436466, 7086068, 17026366 #### [facility] [address] [place] [address] MCH (RBC) [Entitic mass] 26.7 pg Low 27.0-34.0 [facility] Comment on above: Performed By: #### 2 602412, 2602788, 3215931, 3791439, 8092787, 70964071 #### [facility] [address] [place] [address] MCHC (RBC) [Mass/Vol] 33.6 g/dL Normal 31.4-36.0 [facility] Comment on above: Performed By: #### 2 486243, 4369778, 8649971, 5754355, 4592893, 06256568 #### [facility] [address] [place] [address] MCV (RBC) [Entitic vol] 79.5 fL Low 80.0-100.0 [facility] Comment on above: Performed By: #### 2 739192, 8118873, 7503382, 8797943, 1547070, 61105670 #### [facility] [address] [place], [place] [address] Platelet mean volume (Bld) [Entitic vol] 8.7 fL Normal 6.4-10.8 [facility] Comment on above: Performed By: #### 2 264450, 8865365, 7287298, 5402978, 5361127, 76839167 #### [facility] [address] [place] [address] Platelets (Bld) [#/Vol] 233.0 E9/L Normal 150.0-500.0 [facility] Comment on above: Performed By: #### 2 238654, 3374049, 1359424, 3312514, 8879965, 25093263 #### [facility] [address] [place] [address] RBC (Bld) [#/Vol] 4.5 E12/L Normal 4.3-5.9 [facility] Comment on above: Performed By: #### 2 751577, 7952119, 0869655, 2956845, 0777845, 59385336 #### [facility] [address] [place] [address] WBC corrected for nucl RBC Auto (Bld) [#/Vol] 6.0 E9/L Normal 4.0-11.0 [facility] Comment on above: Performed By: #### 2 397562, 3636363, 2768726, 3630286, 0378362, 44688797 #### [facility] [address] [place] [address] CHEMISTRYOrdered By: SYSTEM SYSTEM on 05-25-2023 Albumin [...] 132 mL/min/1.73 m2 Normal >=59mL/min/1.7 3 m2 [facility] Chem S Globulin (S) [Mass/Vol] 3.8 g/dL [...] 9 mg/dL Normal 5 - 21 mg/dL [facility] Remisol Urea nitrogen/Creatinine [Mass ratio] 18 mg/mg Normal 10 - 20 [facility] Remisol Consent for Treatmenton Consent for Treatment [id number] .[id number]:127 Normal [facility] Discharge Instructionson Discharge Instructions [id number] 1.00CD:127 Normal [facility] ED Clinical Summaryon 2022 ED Clinical Summary [address] [address] ED Clinical Summary Person Information Name: ROLA AGUILAR Sj [facility] Age: 27 Years : 1995 Sex: Female Language: [place] PCP: Kale RENDON MD Marital Status: Single Phone: [phone] Visit Id: Visit Reason: Diarrhea; Vomiting; Abdominal [...] 05/25/2023 23:07:00 05/25/2023 23:07:00 05/25/2023 23:07:00 ADDRESS: [address] [place] [address] [address] [place] [phone] PHYS DOC NOTES: MEDICAL INFORMATION: Prescriptions Given: Medications to Continue with No Changes Other Medications acetaminophen-hydroco done ([place] 325 mg-5 mg oral tablet) 1 Tablets By Mouth every 6 hours as needed for pain. Refills: 0. acetaminophen-hydroco done ([place] 325 mg-5 mg oral tablet) 1 Tablets [...] Disease Follow up: With: Address: When: [address], [address], [facility] [address] [place] [phone] Business (1) In 3 days 05/28/2023 With: Address: When: Kale RENDON [address] [place] [address], [facility] [place] [address] Business (1) In 3 days DIAGNOSIS: 1:Abdominal pain in female; 2:Crohn's disease; 3:Intraute (more content not included)... 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 How is this treated? There is no [...] these instructions at home: Medicines ? Take fwdv-usq-qfepyjk and prescription medicines only as told by [...] contain jonny (more content not included)... Normal [facility] ED Patient Summaryon 023 ED Patient Summary [place] [id number] Patient Discharge Instructions Person Information Name: ROLA AGUILAR Age: 27 Years Arrival Date: 05/25/2023 18:50:32 Discharge Diagnosis: 1:Abdominal pain in female; 2:Crohn's disease; 3:Intrauterine Primary Care Physician: Kale RENDON MD Provider Information Primary Provider: Alex Sanchez DO Advanced Registered Nurse Maternity:None The exam and treatment you received in the Emergency Department were for an urgent problem and are not intended as complete care. It is important that you follow up with a doctor, nurse practitioner, or physician?s housekeeping assistant for ongoing care. If your symptoms become worse or you do not improve as expected and you are unable to reach your usual health care provider, you should return to the Emergency Department. We are available 24 hours a day. SHENROLA JAIME has been given the following list of patient education materials, prescriptions and follow-up instructions: Follow-up Instructions: With: Address: When: Ja Bhardwaj [address] [facility], [address], [facility] [address] [place] [phone] Business (1) In 3 days 05/28/2023 With: Address: When: Kale RENDON [address] [place] [address], [place] [address] Business (1) In 3 days In the event that this physician does not participate in your insurance network, please consult with your insurance company to find a nearby participating provider. Patient Education Materials: Crohn's Disease A MESSAGE TO ALL PATIENTS REGARDING OPIOIDS PRESCRIPTION OPIOIDS: WHAT YOU NEED TO KNOW Prescription opioids can be used to help relieve tohalqvf-dn-ivoquw pain and are often prescribed following a [...] and ov (more content not included)... Normal [facility] HEMATOLOGYOrdered By: SYSTEM SYSTEM on 05-25-2023 [...] 4.0 E9/L Normal 2.0 - 7.5 E9/L FT HemeAutoSS HEMATOLOGYOrdered By: Corie Gardiner on 05-25-2023 Erythrocyte distribution width (RBC) [Ratio] 17.3 % High 10.9 - 14.2 % [facility] HemeAutoSS Hematocrit (Bld) [Volume fraction] 35.6 % Normal 34.0 - 46.0 % FT HemeAutoSS Hemoglobin (Bld) [Mass/Vol] 12.0 g/dL Normal 12.0 - 16.0 gm/dL [facility] HemeAutoSS MCH (RBC) [Entitic mass] 26.7 pg Low 27.0 - 34.0 pg [facility] HemeAutoSS MCHC (RBC) [Mass/Vol] 33.6 g/dL Normal 31.4 - 36.0 gm/dL [facility] HemeAutoSS MCV (RBC) [Entitic vol] 79.5 fL Low 80.0 - 100.0 fL [facility] HemeAutoSS Platelet mean volume (Bld) [Entitic vol] 8.7 fL Normal 6.4 - 10.8 fL [facility] HemeAutoSS Platelets (Bld) [#/Vol] 233.0 E9/L Normal 150.0 - 500.0 E9/L [facility] HemeAutoSS RBC (Bld) [#/Vol] 4.5 E12/L Normal 4.3 - 5.9 E12/L [facility] HemeAutoSS WBC corrected for nucl RBC Auto (Bld) [#/Vol] 6.0 E9/L Normal 4.0 - 11.0 E9/L [facility] HemeAutoSS Hep Func Panelon 05-25-2023 Bilirubin.indirect [Mass or moles/Vol] UTC Abnormal 0.1-0.9 [facility] Comment on above: Result Comment: Resu lt verified by Discern Rule. Performed result UTC (Unable to Calculate) was sent as an Alpha code due the inability to calculate a valid numeric value. Performed By: #### 2 400919, 0001231, 8616618, 7797589, 2440617, 41160794 #### [facility] [address] [place] [address] Albumin [Mass/Vol] 3.1 g/dL Low 3.3-5.0 [facility] Comment on above: Performed By: #### 2 479622, 1842689, 7861986, 2145254, 6575756, 29320675 #### [facility] [address] [place] [address] Albumin/Globulin (S) [Mass conc ratio] 0.8 Low 1.1-2.2 [facility] Comment on above: Performed By: #### 2 521827, 7460255, 2989909, 6076365, 2141096, 84355632 #### [facility] [address] [place] [address] ALP [Catalytic activity/Vol] 52 Int._Unit/L Normal 21-98 [facility] Comment on above: Performed By: #### 2 153955, 6972888, 3871098, 2775450, 4025936, 61550307 #### [facility] [address] [place] [address] ALT No additional P-5'-P [Catalytic activity/Vol] 22 Int._Unit/L Normal 6-46 [facility] Comment on above: Performed By: #### 2 604130, 3063713, 7160641, 8816875, 7518910, 34439371 #### [facility] [address] [place] [address] AST [Catalytic activity/Vol] 14 Int._Unit/L Normal 5-43 [facility] Comment on above: Performed By: #### 2 406124, 2492290, 6176112, 5126471, 8864060, 22070148 #### [facility] [address] [place] [address] Bilirubin [Mass/Vol] 0.5 mg/dL Normal 0.0-1.1 [facility] Comment on above: Performed By: #### 2 902806, 1270002, 7715452, 1910423, 9484911, 37191213 #### [facility] [address] [place] [address] Globulin (S) [Mass/Vol] 3.8 g/dL Normal 1.4-4.0 [facility] Comment on above: Performed By: #### 2 359757, 8662305, 2609075, 3018757, 2621947, 03350283 #### [facility] [address] [place] [address] Protein [Mass/Vol] 6.9 g/dL Normal 6.0-7.8 [facility] Comment on above: Performed By: #### 2 206279, 6936757, 3345254, 9416842, 7774974, 97023554 #### [facility] [address] [place] [address] Bilirubin.direct [Mass/Vol] mg/dL Normal 0.1-0.4 [facility] Comment on above: Performed By: #### 2 236777, 9808695, 6641450, 7020636, 6612263, 61684890 #### [facility] [address] [place] [address] Lipase Levelon 05-25-2023 Lipase [Catalytic activity/Vol] 58 U/L Normal 13-58 [facility] Comment on above: Performed By: #### 2 200448, 0600282, 8875362, 4433607, 3948882, 22829029 #### [facility] [address] [place] [address] Magnesiumon 05-25-2023 Magnesium [Mass/Vol] 1.6 mg/dL Normal 1.3-2.4 [facility] Comment on above: Performed By: #### 2 055139, 6825762, 1535911, 1211932, 8851722, 18525405 #### [facility] [address] [place] [address] UA With Cult Reflexon 2022 Bacteria LM Ql (Urine sed) 1+ /HPF Abnormal Trace [facility] Comment on above: Performed By: #### 2 343169, 95938384 ####[facility] [address] [place] [address] Bilirubin Ql (U) Negative Normal Negative [facility] Comment on above: Performed By: #### 2 800732, 94235064 ####[facility] [address] [place] [address] Clarity (U) SL CLOUDY Abnormal Clear [facility] Comment on above: Performed By: #### 2 200210, 52179242 ####[facility] [address] [place] [address] Color (U) YELLOW Normal Yellow [facility] Comment on above: Performed By: #### 2 538367, 36494773 ####[address] [address] Epithelial cells.squamous LM.HPF (Urine sed) [#/Area] 3-4 Normal 0-2 [facility] Comment on above: Performed By: #### 2 437799, 46396597 ####[facility] [address] [place] [address] Glucose Test strip (U) [Mass/Vol] Negative Normal Negative [facility] Comment on above: Performed By: #### 2 410380, 47441741 ####[facility] [address] [place] [address] Hemoglobin Ql (U) Negative Normal Negative [facility] Comment on above: Performed By: #### 2 884269, [id number] ####[facility] [address] [place] [address] Ketones (U) [Mass/Vol] Negative Normal Negative Fi [facility] Comment on above: Performed By: #### 2 737569, [id number] ####[facility] [address] [place] [address] [place].plasma/[place] .RBC (Bld) [Mass ratio] 0-3 Normal 0-3 [facility] Comment on above: Performed By: #### 2 669422, [id number] ####[facility] [address] [place] [address] Mucus Ql (Urine sed) 1+ Normal Fish [facility] Comment on above: Performed By: #### 2 162763, [id number] ####[facility] [address] [place] [address] Nitrite Ql (U) Negative Normal Negative [facility] Comment on above: Performed By: #### 2 514368, [id number] ####[facility] [address] [place] [address] pH (U) 6.0 [pH] Invalid Interpretation Code 5.0-9.0 [facility] Comment on above: Performed By: #### 2 319329, [id number] ####[facility] [address] [place] [address] Protein (U) [Mass/Vol] TRACE Abnormal Negative Fi [facility] Comment on above: Performed By: #### 2 903483, [id number] ####[facility] [address] [place] [address] Specific gravity (U) [Rel density] 1.025 Invalid Interpretation Code 1.005-1.030 [facility] Comment on above: Performed By: #### 2 618876, [id number] ####[facility] [address] [place] [address] Type of Urine collection method Clean Catch Normal [facility] Comment on above: Performed By: #### 2 530190, [id number] ####[facility] [address] [place] [address] Urobilinogen Qn (U) 0.2 {Keyla'U}/dL Normal 0.0-1.0 [facility] Comment on above: Performed By: #### 2 799694, 44763652 ####[facility] [address] [place] [address] WBC Auto Ql (U) 1+ Abnormal Negative [facility] Comment on above: Performed By: #### 2 543086, 07508273 ####[facility] [address] [place] [address] WBC LM.HPF (Urine sed) [#/Area] 6-15 Abnormal 0-5 [facility] Comment on above: Performed By: #### 2 651427, 10257226 ####[facility] [address] [place] [address] URINALYSISOrdered By: Espinoza Mason on 05-25-2023 Bacteria [...] PM) Normal Negative [facility] UA Auto SS [place].plasma/[place] .RBC (Bld) [Mass ratio] 0-3 /HPF Normal [...] PM) Invalid Interpretation Code 1.005 - 1.030 [facility] UA Auto SS UA Spec Desc Clean Catch (05/25/23 7:52 PM) Normal [facility] UA Auto SS Urobilinogen Qn (U) 0.6266454 {Keyla'U}/dL Normal 0.0 - 1.0 EU/dL [facility] UA Auto SS WBC Auto Ql (U) 1+ *ABN* (05/25/23 7:52 PM) Invalid Interpretation Code Negative [facility] UA Auto SS WBC LM.HPF (Urine sed) [#/Area] 6-15 /HPF Invalid Interpretation Code 0-5/HPF [facility] UA Auto SS eGFRon 05-25-2023 GFR/1.73 sq M.predicted among non-blacks MDRD (S/P/Bld) [Vol rate/Area] 132 mL/min/1.73 m2 Normal >=59 [facility] Comment on above: Order Comment: Order added by Discern Expert. Result Comment: Bean Weigher sammie kidney disease could be indicated at eGFR's of less than 60 mL/min/1.73m2. Kidney failure is indicated at less than 15 mL/min/1.73m2. Performed By: #### 2 115221, 0473430, 5080900, 2124679, 4931312, [id number] #### [facility] Laboratory [address] [place] [address] C diff Tox gens Stl Ql CORONA+p robeon 04-30-2023 C. difficile toxin genes CORONA+probe Ql (Stl) Negative Normal Negative for C. difficile toxin by PCR [facility] Comment on above: Order Comment: Speci men Type: STOOL SPECIMENOrdering Facility: [facility] Address: [address] [place] [address] Performed By: #### 5 4067-4 ####[facility] LABCLIA [id number] [address] [address] [place] CBC W Auto Differential pane l (Bld)on 04-30-2023 Basophils (Bld) [#/Vol] 10*3/uL Normal <0.11 [facility] Comment on above: Order Comment: Speci men Type: BLOOD SPECIMENOrdering Facility: [facility] Address: [address] [place] [address] Performed By: #### 5 7021-8 ####[facility]ATORYCLIA [id number] [place] [address] [place] Basophils/100 WBC (Bld) 0.3 % Normal [facility] Comment on above: Order Comment: Speci men Type: BLOOD SPECIMENOrdering Facility: [facility] Address: [address] [place] [address] Performed By: #### 5 7021-8 ####[facility] LABORATORYIA [id number] [place] [address] [place] Differential cell count method Nom (Bld) Auto Normal [facility] ital Comment on above: Order Comment: Speci men Type: BLOOD SPECIMENOrdering Facility: [facility] Address: [address] [place] [address] Performed By: #### 5 7021-8 ####[facility] LABORATORYIA [id number] [place] [address] [place] Eosinophils (Bld) [#/Vol] 0.05 10*3/uL Normal <0.46 [facility] Comment on above: Order Comment: Speci men Type: BLOOD SPECIMENOrdering Facility: [facility] Address: [address] [place] [address] Performed By: #### 5 7021-8 ####[facility] LAB[facility]ATORYIA [id number] [place] [address] [place] Eosinophils/100 WBC (Bld) 0.8 % Normal [facility] Comment on above: Order Comment: Speci men Type: BLOOD SPECIMENOrdering Facility: [facility] Address: [address] [place] [address] Performed By: #### 5 7021-8 ####[facility]ORATORYCLIA [id number] [place] [address] [place] Erythrocyte distribution width (RBC) [Ratio] 14.0 % Normal 11.5-15.0 [facility] Comment on above: Order Comment: Speci men Type: BLOOD SPECIMENOrdering Facility: [facility] Address: [address] [place] [address] Performed By: #### 5 7021-8 ####[facility]ATORYCLIA [id number] [address] [place] Hematocrit (Bld) [Volume fraction] 35.6 % Low 36.0-46.0 [facility] Comment on above: Order Comment: Speci men Type: BLOOD SPECIMENOrdering Facility: [facility] Address: [address] [place] [address] Performed By: #### 5 7021-8 ####[facility] LABORATORYIA [id number] [place] [address] [place] Hemoglobin (Bld) [Mass/Vol] 11.2 g/dL Low 11.5-15.5 [facility] Comment on above: Order Comment: Speci men Type: BLOOD SPECIMENOrdering Facility: [facility] Address: [address] [place] [address] Performed By: #### 5 7021-8 ####[facility] [id number] [place] [address] [place] Immature granulocytes (Bld) [#/Vol] 10*3/uL Normal <0.10 [facility] Comment on above: Order Comment: Speci men Type: BLOOD SPECIMENOrdering Facility: [facility] Address: [address] [place] [place] [address] Performed By: #### 5 7021-8 ####[facility]ATORYIA [id number] [address] [place] Immature granulocytes/100 WBC (Bld) 0.3 % Normal [facility] Comment on above: Order Comment: Speci men Type: BLOOD SPECIMENOrdering Facility: [facility] Address: [address] [place] [address] Performed By: #### 5 7021-8 ####[facility] LABORATORYCLIA [id number] [place] [address] [place] Lymphocytes (Bld) [#/Vol] 1.35 10*3/uL Normal 1.00-4.00 [facility] Comment on above: Order Comment: Speci men Type: BLOOD SPECIMENOrdering Facility: [facility] Address: [address] [place] [address] Performed By: #### 5 7021-8 ####[facility] [id number] [address] [place] Lymphocytes/100 WBC (Bld) 22.5 % Normal [facility] Comment on above: Order Comment: Speci men Type: BLOOD SPECIMENOrdering Facility: [facility] Address: [address] [place] [address] Performed By: #### 5 7021-8 ####[facility] [id number] [place] [address] [place] MCH (RBC) [Entitic mass] 25.3 pg Low 26.0-34.0 [facility] Comment on above: Order Comment: Speci men Type: BLOOD SPECIMENOrdering Facility: [facility] Address: [address] [place] [address] Performed By: #### 5 7021-8 ####[facility] [id number] [place] [address] [place] MCHC (RBC) [Mass/Vol] 31.5 g/dL Normal 30.5-36.0 [facility] Comment on above: Order Comment: Speci men Type: BLOOD SPECIMENOrdering Facility: [facility] Address: [address] [place] [address] Performed By: #### 5 7021-8 ####[facility] [id number] [address] [place] MCV (RBC) [Entitic vol] 80.4 fL Normal 80.0-100.0 [facility] Comment on above: Order Comment: Speci men Type: BLOOD SPECIMENOrdering Facility: [facility] Address: [address] [place] [place] [address] Performed By: #### 5 7021-8 ####[facility] LAB[facility]ATORYIA [id number] [place] [address] [place] Monocytes (Bld) [#/Vol] 0.35 10*3/uL Normal <0.87 [facility] Comment on above: Order Comment: Speci men Type: BLOOD SPECIMENOrdering Facility: [facility] Address: [address] [place] [place] [address] Performed By: #### 5 7021-8 ####[facility] [id number] [place] [address] [place] Monocytes/100 WBC (Bld) 5.8 % Normal [facility] Comment on above: Order Comment: Speci men Type: BLOOD SPECIMENOrdering Facility: [facility] Address: [address] [place] [address] Performed By: #### 5 7021-8 ####[facility] [id number] [place] [address] [place] Neutrophils (Bld) [#/Vol] 4.22 10*3/uL Normal 1.45-7.50 [facility] Comment on above: Order Comment: Speci men Type: BLOOD SPECIMENOrdering Facility: [facility] Address: [address] [place] [address] Performed By: #### 5 7021-8 ####[facility] LAB[facility]ATORYIA [id number] [place] [address] [place] Neutrophils/100 WBC (Bld) 70.3 % Normal [facility] Comment on above: Order Comment: Speci men Type: BLOOD SPECIMENOrdering Facility: [facility] Address: [address] [place] [address] Performed By: #### 5 7021-8 ####[facility]ATORYIA [id number] [place] [address] [place] Nucleated RBC (Bld) [#/Vol] 10*3/uL Normal <0.01 [facility] Comment on above: Order Comment: Speci men Type: BLOOD SPECIMENOrdering Facility: [facility] Address: [address] [place] [address] Performed By: #### 5 7021-8 ####[facility]ATORYIA [id number] [place] [address] [place] Nucleated RBC/100 WBC (Bld) [Ratio] 0.0 /100 WBC Normal [facility] Comment on above: Order Comment: Speci men Type: BLOOD SPECIMENOrdering Facility: [facility] Address: [address] [place] [address] Performed By: #### 5 7021-8 ####[facility] [id number] [place] [address] [place] Platelet mean volume (Bld) [Entitic vol] 10.0 fL Normal 9.0-12.7 [facility] Comment on above: Order Comment: Speci men Type: BLOOD SPECIMENOrdering Facility: [facility] Address: [address] Performed By: #### 5 7021-8 ####[facility] [id number] [place] [address] [place] Platelets (Bld) [#/Vol] 276 10*3/uL Normal 150-400 [facility] Comment on above: Order Comment: Speci men Type: BLOOD SPECIMENOrdering Facility: [facility] Address: [address] Performed By: #### 5 7021-8 ####[facility]ORYIA [id number] [place] [address] [place] RBC (Bld) [#/Vol] 4.43 10*6/uL Normal 3.90-5.20 [facility] Comment on above: Order Comment: Speci men Type: BLOOD SPECIMENOrdering Facility: [facility] Address: [address] Performed By: #### 5 7021-8 ####[facility]ATORYCLIA [id number] [place] [address] [facility] WBC (Bld) [#/Vol] 6.01 10*3/uL Normal 3.70-11.00 [facility] Comment on above: Order Comment: Speci men Type: BLOOD SPECIMENOrdering Facility: [facility] Address: [place] [address] Performed By: #### 5 7021-8 ####[facility]ORATORYCLIA [id number] [place] [address] [facility] CONSULTon 04-30-2023 CONSULT HNO ID: [id number] Author: Dawn Morrison APRN.CNP Service: Gastroenterology Author Type: Nurse Practitioner [...] up with [facility] Discussed case with Dr. Ornelas Subjective [...] Imuran as otpt however neither were initiated 2/ . She does have an ostomy bag [...] ileostomy. States that she [place] [facility] [place] week and a half [...] granulomata. - No dysplasia seen. OV 03/05/23 Rosina Alex, GI WHEEL OF FORTUNE DEALER: IMPRESSION (copied from previous notes and reflects today's medical decision making): Rola Aguilar is a 27 year old female with PMHx of SB/LB Crohn's Disease with perianal involvement (dx 2013) s/p DLI in 2018- since then she has not been on any IBD related medications. Previously treated with prednisone, Adalimumab (1514-2672, developed antibodies), and Ustekinumab (6329-9150, lost insurance). She recently was discharged from the hospital (from 01/08-01/21/2023) for abdominal pain, bleeding and stool per rectum. 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 She was started on IVCS with tr (more content not included)... Normal [facility] CRP SerPl-mCncon 04-30-2023 CRP [Mass/Vol] 4.7 mg/dL High <0.9 [facility] Comment on above: Order Comment: Speci men Type: BLOOD SPECIMENOrdering Facility: [facility] Address: [address] [place] [address] Performed By: #### 1 988-5, 05110-9, 3040-3, 80492-2 ####[facility]ORATORYCLIA [id number] [facility] [place] [address] [place] Calprotectin (Stl) [Mass/Mas s]on 04-30-2023 CALPROTECTIN, FECAL INTERP Elevated Abnormal Normal [facility] Comment on above: Order Comment: Speci men Type: STOOL SPECIMENOrdering Facility: [facility] Address: [address] [place] [address] Result Comment: On 2022, [facility] [employer] implemented a new fecal calprotectin method, the [employer] Calprotectin assay. For assistance with interpretation of results in patients undergoing serial monitoring, contact Client Services at [phone] or [phone] to discuss options, preferably within 7 days of issuing this report. Interpretation: <50.0 ug/g: Normal 50.0 ug/g - 120.0 ug/g: Borderline elevated. Re-evaluation in 4-6 weeks is recommended if clinically indicated. >120.0 ug/g: Elevated Performed By: #### 3 8445-3 ####[facility] LABCLIA [id number] [place] [address] [place] CALPROTECTIN, FECAL QUANTITATIVE 200 ug/g High <50 [facility] Comment on above: Order Comment: Speci men Type: STOOL SPECIMENOrdering Facility: [facility] Address: [address] [place] [address] Performed By: #### 3 8445-3 ####[facility] LABCLIA [id number] [place] [address] [place] Comprehensive metabolic 2000 panelon 04-30-2023 Albumin [Mass/Vol] 4.3 g/dL Normal 3.9-4.9 [facility] Comment on above: Order Comment: Speci men Type: BLOOD SPECIMENOrdering Facility: [facility] Address: [address] [place] [address] Performed By: #### 1 988-5, 21915-8, 0-3, 18684-2 ####[facility]ORATORYCLIA [id number] [facility], [place] [address] [place] [address] [place] ALP [Catalytic activity/Vol] 75 U/L Normal 34-123 [facility] Comment on above: Order Comment: Speci men Type: BLOOD SPECIMENOrdering Facility: [facility] Address: [address] [place] [address] Performed By: #### 1 988-5, 21814-7, 3040-3, 39248-4 ####[facility]ORATORYCLIA [id number] [place] [address] [place] ALT [Catalytic activity/Vol] 11 U/L Normal 7-38 [facility] Comment on above: Order Comment: Speci men Type: BLOOD SPECIMENOrdering Facility: [facility] Address: [address] [place] [address] Performed By: #### 1 988-5, 55840-9, 3040-3, 34192-1 ####[facility]ORATORYCLIA [id number] [place] [address] [place] Anion gap [Moles/Vol] 13 mmol/L Normal 9-18 [facility] Comment on above: Order Comment: Speci men Type: BLOOD SPECIMENOrdering Facility: [facility] Address: [address] [place] [address] Performed By: #### 1 988-5, 14133-9, 3040-3, 40805-1 ####[facility] LABORATORYCLIA [id number] [place] [address] [place] AST [Catalytic activity/Vol] 17 U/L Normal 13-35 [facility] Comment on above: Order Comment: Speci men Type: BLOOD SPECIMENOrdering Facility: [facility] Address: [address] [place] [address] Performed By: #### 1 988-5, 69938-5, 3040-3, 42584-2 ####[facility]ATORYCLIA [id number] [place] [address] [place] Bilirubin [Mass/Vol] 0.4 mg/dL Normal 0.2-1.3 [facility] Comment on above: Order Comment: Speci men Type: BLOOD SPECIMENOrdering Facility: [facility] Address: [address] [place] [address] Performed By: #### 1 988-5, 50094-0, 3040-3, 91038-0 ####[facility] LABORATORYCLIA [id number] [place] [address] [place] Calcium [Mass/Vol] 9.4 mg/dL Normal 8.5-10.2 [facility] Comment on above: Order Comment: Speci men Type: BLOOD SPECIMENOrdering Facility: [facility] Address: [address] [place] [address] Performed By: #### 1 988-5, 25228-2, 3040-3, 17589-6 ####[facility] LABORATORYCLIA [id number] [place] [address] [place] Chloride [Moles/Vol] 102 mmol/L Normal 97-105 [facility] Comment on above: Order Comment: Speci men Type: BLOOD SPECIMENOrdering Facility: [facility] Address: [address] [place] [address] Performed By: #### 1 988-5, 27069-7, 3040-3, ####[facility] LABORATORYCLIA [id number] [place] [address] [place] CO2 [Moles/Vol] 21 mmol/L Low 22-30 [facility] Comment on above: Order Comment: Speci men Type: BLOOD SPECIMENOrdering Facility: [facility] Address: [address] [place] [address] Performed By: #### 1 988-5, 76868-1, 0-3, ####[facility]ITALCL[facility] [id number] [place] [address] [place] Creatinine [Mass/Vol] 0.65 mg/dL Normal 0.58-0.96 [facility] Comment on above: Order Comment: Speci men Type: BLOOD SPECIMENOrdering Facility: [facility] Address: [address] Performed By: #### 1 988-5, 59854-3, 3040-3, ####[facility]ATORYCLIA [id number] [place] [address] [place] ESTIMATED GLOMERULAR FILTRATION RATE 124 mL/min/1.73m??? Normal >=60 [facility] Comment on above: Order Comment: [place] Type: BLOOD SPECIMENOrdering Facility: [facility] Address: [address] [place] [address] Result Comment: Alysha mated Glomerular Filtration Rate [...] actual GFR. Performed By: #### 1 988-5, 19494-2, 0-3, ####[facility]ATORYCLIA [id number] [place] [address] [place] Glucose [Mass/Vol] 86 mg/dL Normal 74-99 [facility] Comment on above: Order Comment: [place] Type: BLOOD SPECIMENOrdering Facility: [facility] Address: [address] [place] [address] Result Comment: The [place] Diabetes Association (ADA) provides guidance for cutoff [...] Standards of Medical Care in Diabetes 2016, [place] Diabetes Association. Diabetes Care. 2016.39(Suppl 1). Performed By: #### 1 988-5, 73191-6, 0-3, ####[facility]ATORYCLIA [id number] [place] [address] [place] Potassium [Moles/Vol] 3.7 mmol/L Normal 3.7-5.1 [facility] Comment on above: Order Comment: [place] Type: BLOOD SPECIMENOrdering Facility: [facility] Address: [address] [place] [id number] Performed By: #### 1 988-5, 70434-7, 3040-3, 06039-1 ####[facility] [id number] [place] [address] [place] Protein [Mass/Vol] 8.7 g/dL High 6.3-8.0 [facility] Comment on above: Order Comment: Speci men Type: BLOOD SPECIMENOrdering Facility: [facility] Address: [address] [place], [place] [address] Performed By: #### 1 988-5, 11026-2, 0-3, 31865-5 ####[facility]ITAL[facility] [id number] [place] [address] [place] [facility] Sodium [Moles/Vol] 136 mmol/L Normal 136-144 [facility] Comment on above: Order Comment: Speci men Type: BLOOD SPECIMENOrdering Facility: [facility] Address: [address] [place], [place] [address] Performed By: #### 1 988-5, 86589-4, 0-3, 42859-4 ####[facility] [id number] [place] [address] [place] Urea nitrogen [Mass/Vol] 8 mg/dL Normal 7-21 [facility] Comment on above: Order Comment: Speci men Type: BLOOD SPECIMENOrdering Facility: [facility] Address: [address] [place], [place] [address] Performed By: #### 1 988-5, 89766-1, 3040-3, 45269-0 ####[facility]ATORYIA [id number] [place] [address] [place] ED NOTEon 04-30-2023 ED NOTE HNO ID: [id number] Author: Kanchan Stanton RN Service: ? Author Type: Registered Nurse Type: ED Notes Filed: 04/30/2023 9:01 PM Note Text: Report given to transport team and SHAHBAZ Espinoza at receiving facility. VSS. [facility] ED NOTE HNO ID: [id number] Author: Kanchan Stanton RN Service: ? Author Type: Registered Nurse Type: ED Notes Filed: 04/30/2023 9:04 PM Note Text: Pt states she does not want any pain meds for transport to . [facility] ED NOTE HNO ID: [id number] Author: Tom Rasheed, SHAHBAZ Service: ? Author Type: Registered Nurse Type: ED Notes Filed: 04/30/2023 6:42 PM Note Text: Pt updated on current plan of care and bed assignment at . Pt agreeable to transfer at this time without further questions. [facility] ED NOTE HNO ID: [id number] Author: Tom Rasheed, SHAHBAZ Service: ? Author Type: Registered Nurse Type: ED Notes Filed: 04/30/2023 2:21 PM Note Text: Pt states increasing pain with razor blade in my stomach description. Dr. Parham aware and orders being obtained. [facility] ED NOTE HNO ID: [id number] Author: Debbie Desir RN Service: ? Author Type: Registered Nurse Type: ED Notes Filed: 04/29/2023 11:17 PM Note Text: Report given to SHAHBAZ Worley. [facility] ED PROV NOTEon 04-30-2023 ED PROV NOTE HNO ID: [id number] Author: Bandar Parham DO Service: Emergency Medicine [...] unfortunately are unable to transfer her to [place] because there are no beds available at this time. We cannot board her at [facility] because she is . The NOM and [...] PAGER/CONTACT #: BANDAR PARHAM 04/30/23 1604 Normal [facility] ED PROV NOTE HNO ID: [id number] Author: Tom Neal DO Service: Emergency Medicine [...] 04/30/23 1603 Others' Documentation SatApr 30, 2023 0722 Patient signed [...] unfortunately are unable to transfer her to [place] because there are no beds available at this time. We cannot board her at [place] because she is . The NOM and [...] NEAL 04/30/23 1605 TOM NEAL 04/30/23 1750 [facility] ED PROV NOTE HNO ID: [id number] Author: Fernanda Madden DO Service: ? Author [...] of crohns disease. [place] [facility] [place] and recommendations were [...] pain. No sob. History provided by: Patient cooker loader used: No PAST MEDICAL HISTORY Diagnosis Date [...] 04/29/23 1848 04/29/23 1848 04/29/23 1848 04/29/23 18404/29/23 1848 04/29/23 1848 04/29/23 1846 -- 121/86 [...] ear normal. Nose: Nose normal. Mouth/Throat: Lips: [place]. Mouth: Mucous membranes are moist. Pharynx: Oropharynx is clear. Eyes: General: Lids are normal. Vision grossly intact. Gaze aligned appropriately. No scleral icterus. Right eye: No discharge. Left eye: (more content not included)... Normal [facility] ESR Westergren method (Bld) [Velocity]on 04-30-2023 ESR (Bld) [Velocity] 40 mm/h High 0-20 [facility] Comment on above: Order Comment: Speci men Type: BLOOD SPECIMENOrdering Facility: [facility] Address: [address] [address] Performed By: #### 4 537-7 ####[facility] LABCLIA [id number] [place] [address] [place] Gastrointestinal pathogens i dentified CORONA+probe Nom (Stl)on 04-30-2023 Campylobacter sp DNA CORONA+probe Nom (Unsp spec) Not detected Normal Not Detected [facility] Comment on above: Order Comment: Speci men Type: STOOL SPECIMENOrdering Facility: [facility] Address: [address] [address] Performed By: #### 7 9390-1 ####[facility] LABCLIA [id number] [place] [address] [place] Salmonella sp DNA CORONA+probe Ql (Unsp spec) Not detected Normal Not Detected [facility] Comment on above: Order Comment: Speci men Type: STOOL SPECIMENOrdering Facility: [facility] Address: [address] [address] Performed By: #### 7 9390-1 ####[facility] LABCLIA [id number] [address] [place] Shiga toxin stx gene CORONA+probe Nom (Unsp spec) Not detected Normal Not Detected [facility] Comment on above: Order Comment: Speci men Type: STOOL SPECIMENOrdering Facility: [facility] Address: [address] [address] Performed By: #### 7 9390-1 ####[facility] LABCLIA [id number] [place] [address] [place] Shigella sp DNA CORONA+probe Ql (Unsp spec) Not detected Normal Not Detected [facility] Comment on above: Order Comment: Speci men Type: STOOL SPECIMENOrdering Facility: [facility] Address: [address] Performed By: #### 7 9390-1 ####[facility] LABCLIA [id number] [facility] [id number] [id number] [place] HIGH SENSITIVITY TROPONIN T (INITIAL)on 04-30-2023 HIGH SENSITIVITY LUCY <6 Normal <12 [facility] Comment on above: Order Comment: [place] Type: BLOOD SPECIMENOrdering Facility: [facility] Address: [address] [address] Result Comment: When assessing risk for acute [...] 30 day MACE. Performed By: #### L [id number] ####[facility] [id number] [place] [address] [place] HIGH SENSITIVITY TROPONIN T (SECOND)on 04-30-2023 HIGH SENSITIVITY LUCY <6 Normal <12 [facility] Comment on above: Order Comment: [place] Type: BLOOD SPECIMENOrdering Facility: [facility] Address: [address] [place] [address] Result Comment: When assessing risk for acute [...] 30 day MACE. Performed By: #### L [id number] ####[facility] [id number] [place] [address] [place] Lipase SerPl-cCncon 04-30-20 23 Lipase [Catalytic activity/Vol] 63 U/L High 16-61 [facility] Comment on above: Order Comment: [place] Type: BLOOD SPECIMENOrdering Facility: [facility] Address: [address] [place] [address] Performed By: #### 1 988-5, 08747-4, 3039-3, ####[facility] [id number] [place] [address] [place] Magnesium SerPl-mCncon 04-30 Magnesium [Mass/Vol] 1.8 mg/dL Normal 1.7-2.3 [facility] Comment on above: Order Comment: Speci men Type: BLOOD SPECIMENOrdering Facility: [facility] Address: [address] [place] [address] Performed By: #### 1 988-5, 80489-4, 3040-3, ####[facility] [id number] [place] [address] [place] Urinalysis complete panel (U )on 04-30-2023 Bacteria LM.HPF (Urine sed) [#/Area] Rare Abnormal None Seen [facility] Comment on above: Order Comment: Speci men Type: URINE SPECIMENOrdering Facility: [facility] Address: [address] [place] [address] Performed By: #### 2 4356-8 ####[facility] [id number] [place] [address] [place] Bilirubin Ql (U) Negative Normal Negative [facility] Comment on above: Order Comment: Speci men Type: URINE SPECIMENOrdering Facility: [facility] Address: [address] [place] [address] Performed By: #### 2 4356-8 ####[facility] [id number] [place] [address] [place] Clarity (Unsp spec) Clear Normal Clear [facility] Comment on above: Order Comment: Speci men Type: URINE SPECIMENOrdering Facility: [facility] Address: [address] [place] [address] Performed By: #### 2 4356-8 ####[facility] [id number] [place] [address] [place] Color (U) Colorless Normal yellow [facility] Comment on above: Order Comment: Speci men Type: URINE SPECIMENOrdering Facility: [facility] Address: [address] [address] Performed By: #### 2 4356-8 ####[facility] [id number] [place] [address] [place] Epithelial cells LM.HPF (Urine sed) [#/Area] Few Normal [facility] Comment on above: Order Comment: Speci men Type: URINE SPECIMENOrdering Facility: [facility] Address: [address] [address] Performed By: #### 2 4356-8 ####[facility] [id number] [place] [address] [place] Glucose Test strip (U) [Mass/Vol] Negative Normal Trace, Negative [facility] Comment on above: Order Comment: Speci men Type: URINE SPECIMENOrdering Facility: [facility] Address: [address] [place] [address] Performed By: #### 2 6-8 ####[facility] [id number] [place] [address] [place] Hemoglobin Ql (U) Negative Normal Negative, Trace [facility] Comment on above: Order Comment: Speci men Type: URINE SPECIMENOrdering Facility: [facility] Address: [address] [place] [address] Performed By: #### 2 6-8 ####[facility] [id number] [place] [address] [place] Ketones Ql (U) 1+ Abnormal Negative, Trace [facility] Comment on above: Order Comment: Speci men Type: URINE SPECIMENOrdering Facility: [facility] Address: [address] [address] Performed By: #### 2 4356-8 ####[facility] [id number] [place] [address] [place] Leukocyte esterase Test strip Ql (U) Negative Normal Negative, 25 Cristela/uL [facility] Comment on above: Order Comment: Speci men Type: URINE SPECIMENOrdering Facility: [facility] Address: [address] [address] Performed By: #### 2 4356-8 ####[facility] [id number] [place] [address] [place] Nitrite Ql (U) Negative Normal Negative [facility] Comment on above: Order Comment: Speci men Type: URINE SPECIMENOrdering Facility: [facility] Address: [address] [address] Performed By: #### 2 4356-8 ####[facility] [id number] [place] [address] [place] pH (U) 6.0 [pH] Normal 5.0-8.0 [facility] Comment on above: Order Comment: Speci men Type: URINE SPECIMENOrdering Facility: [facility] Address: [address] [place] [address] Performed By: #### 2 4356-8 ####[facility] [id number] [place] [address] [place] Protein (U) [Mass/Vol] Negative Normal Trace , Negative [facility] Comment on above: Order Comment: Speci men Type: URINE SPECIMENOrdering Facility: [facility] Address: [address] [place] [address] Performed By: #### 2 4356-8 ####[facility] [id number] [place] [address] [place] RBC LM.HPF (Urine sed) [#/Area] 0-3 /HPF Normal 0-3 /HPF [facility] Comment on above: Order Comment: Speci men Type: URINE SPECIMENOrdering Facility: [facility] Address: [address] [place] [address] Performed By: #### 2 4356-8 ####[facility] [id number] [place] [address] [place] Specific gravity (U) [Rel density] 1.008 Normal 1.005-1.030 [facility] Comment on above: Order Comment: Speci men Type: URINE SPECIMENOrdering Facility: [facility] Address: [address] [address] Performed By: #### 2 4356-8 ####[facility] [id number] [place] [id number] [facility] [place] Urobilinogen Ql (U) Normal Normal Negative [facility] Comment on above: Order Comment: Speci men Type: URINE SPECIMENOrdering Facility: [facility] Address: [address] [place] [address] Performed By: #### 2 4356-8 ####[facility] [id number] [address] [place] WBC LM.HPF (Urine sed) [#/Area] 0-5 /HPF Normal 0-5 /HPF [facility] Comment on above: Order Comment: Speci men Type: URINE SPECIMENOrdering Facility: [facility] Address: [address] [place] [address] Performed By: #### 2 4356-8 ####[facility] [id number] [place] [address] [facility] [place] ECG COMPLETEon 04-29-2023 ECG COMPLETE Ventricular Rate : 8 9 BPM Atrial Rate : 89 BPM P-R Interval : 148 ms QRS Duration : 76 ms Q-T Interval : 336 ms QTC Calculation(Bazett) : 408 ms Calculated P [place] : 51 degrees Calculated R [place] : 62 degrees Calculated T [place] : 32 degrees Normal sinus rhythm Possible Left atrial enlargement Borderline ECG no stemi Confirmed by VIRGINIA GILES, MARA ([id number]), publishing editor Yee Mcdonald ([id number]) on 04/30/2023 8:43:13 AM NAME : ROLA AGUILAR PID : [id number] : 1995 Gender : Female Race : ORD : [id number] Procedure Date : Apr 29 2023 18:52:17 Edit Date : Apr 30 2023 08:43:14 Diagnosis: Normal sinus rhythm Possible Left atrial enlargement Borderline ECG no stemi Confirmed by MARA COLEMAN MD ([id number]), publishing editor Yee Mcdonald ([id number]) on 04/30/2023 8:43:13 AM Test Reason : Chest Pain Location : 302 : ED ED Overread By : MARA COLEMAN MD Edited By : Yee Mcdonald Referred By : , Acquired by : [id number], [facility] ED NOTEon 04-29-2023 ED NOTE HNO ID: [id number] Author: Debbie Desir RN Service: ? Author Type: Registered Nurse Type: ED Notes Filed: 04/29/2023 6:48 PM Note Text: Pt arrived to the ED from work with complaints of generalized abdominal pain, palpitations, chills, and n/v that started 2 wks ago. Pt reports she is currently having a Crohn's flare up and is 13wks . Pt stable at this time. [facility] ED Triage Noteon 04-29-2023 ED Triage Note HNO ID: [id number] Author: Justice Ortiz PA-C Service: ? Author Type: Physician Life Care Planner Type: ED Triage Notes Filed: 04/29/2023 7:02 [...] Urinalysis EKG SIGNATURE: Justice Ortiz PA-C Normal [facility] US DOPPLER COMPLETEon 2022 US DOPPLER COMPLETE * * *Final Report* * * DATE OF EXAM: Apr 29 2023 7:21PM [facility] 1033 - US DOPPLER COMPLETE / PROCEDURE REASON: Pelvic pain, positive beta-HCG, plaque maker etiology suspected * * * * Physician [...] Not seen - Embryo: Single present - Bradner rump length: 6.8 cm, corresponding gestational age [...] weeks, 1 days by crown rump length. Test Man: PSCMichael Transcribe Date/Time: Apr 29 2023 8:02P Dictated by : SUNIL LORENZ MD This examination was interpreted and the report reviewed and electronically signed by: SUNIL LORENZ MD on Apr 29 2023 8:10PM EST [id number] [facility] US PREG TRANSABD <14 WKS LTD on 04-29-2023 US PREG TRANSABD <14 WKS LTD * * *Final Report* * * DATE OF EXAM: Apr 29 2023 7:18PM [facility] 1035 - US PREG TRANSABD <14 WKS LTD / PROCEDURE REASON: Pelvic pain, positive beta-HCG, plaque maker etiology suspected * * * * Physician [...] Not seen - Embryo: Single present - Bradner rump length: 6.8 cm, corresponding gestational age [...] weeks, 1 days by crown rump length. Test Man: MARK Transcribe Date/Time: Apr 29 2023 8:02P Dictated by : SUNIL LORENZ MD This examination was interpreted and the report reviewed and electronically signed by: SUNIL LORENZ MD on Apr 29 2023 8:10PM EST [id number] Normal [facility] Discharge Instructionson Discharge Instructions [id number]# 1.00CD:127 Normal [facility] ED Clinical Summaryon 2022 ED Clinical Summary [address] [place] [id number] ED Clinical Summary Person Information Name: ROLA AGUILAR/[facility] Age: 27 Years : 1995 Sex: Female Language: South African PCP: NONE, XXXX Marital Status: Single Phone: [phone] Visit Id: Visit Reason: Vomiting; Abdominal pain; [...] 04/27/2023 03:09:00 04/27/2023 03:09:00 04/27/2023 03:09:00 ADDRESS: [facility] [place] [place] [id number] PHYS DOC NOTES: MEDICAL INFORMATION: Prescriptions Given: New Medications [facility]/pharmacy #[id number], [address] [phone], [phone] metoclopramide (metoclopramide 10 mg oral tablet, disintegrating) 1 Tablets By Mouth every 6 hours as needed Nausea/Vomiting. Refills: 0. Medications to Continue with No Changes Other Medications acetaminophen-hydroco done ([place] 325 mg-5 mg oral tablet) 1 Tablets By Mouth every 6 hours as needed for pain. Refills: 0. acetaminophen-hydroco done ([place] 325 mg-5 mg oral tablet) 1 Tablets [...] EDUCATION INFORMATION: Instructions: Second Trimester of , Acuk-ax-Hvvb; Crohn's Disease; Abdominal Pain, Adult, Xeep-ae-Cqjp Follow up: With: Address: When: Follow up with Dr Ozuna at [facility] In 3 days 04/30/2023 DIAGNOSIS: 1:Abdominal pain in female; 2:; 3:Nausea & vomiting Normal [facility] ED Note-Physicianon 04-27-20 ED Note-Physician Basic Information Time Seen: Luis A LEDESMAJess 04/26/2023 23:45 Chief Complaint started 2 weeks ago with a chrons flare up. Was at [facility] and put on steroids. says if pain was worse to go back to ER. Is 12 weeks History of Present Illness This patient presents to the emergency department with chief complaint of abdominal pain, nausea, vomiting. The patient states this has been going on for 2 weeks. She was seen at the [facility] diagnosed with acute exacerbation of Crohn's disease. She was placed on steroids. She states she went to the [facility] emergency department this evening, but there [...] care, home-go (more content not included)... Normal [facility] Comment on above: Result Comment: Elec [...] these instructions at home: Medicines ? Take kcbb-gvi-nitaozp and prescription medicines only as told by [...] belly pain for any changes. ? Take bhwa-tcg-jgnmgky and prescription medicines only as told by [...] provider. Document Revised: 01/18/2020 Document Reviewed: 01/18/2020 [place] Patient Education ? 2022 [employer]. Immunology Crohn's Disease Crohn's disease is a [...] to w (more content not included)... Normal [facility] ED Patient Summaryon 023 ED Patient Summary [address] [address] Patient Discharge Instructions Person Information Name: ROLA AGUILAR Age: 27 Years Arrival Date: 04/26/2023 22:10:17 Discharge Diagnosis: 1:Abdominal pain in female; 2:; 3:Nausea & vomiting Primary Care Physician: NONE, XXXX Provider Information Primary Provider: Alfred Graham DO Advanced Registered Nurse Maternity:None The exam and treatment you received in the Emergency Department were for an urgent problem and are not intended as complete care. It is important that you follow up with a doctor, nurse practitioner, or physician?s housekeeping assistant for ongoing care. If your symptoms [...] When: Follow up with Dr Ozuna at [facility] In 3 days 04/30/2023 In the event that this physician does not participate in your insurance network, please consult with your insurance company to find a nearby participating provider. Patient Education Materials: Second Trimester of , Ainv-bn-Hzof; Crohn's Disease; Abdominal Pain, Adult, Xvki-mk-Rzbn A MESSAGE TO ALL PATIENTS REGARDING OPIOIDS PRESCRIPTION OPIOIDS: WHAT YOU NEED TO KNOW Prescription opioids can be used to help relieve whchfzme-rx-qnttpz pain and are often prescribed following a [...] be struggling with addiction, tell your health adult care manager and ask for guidance or call [facility] (more content not included)... Normal [facility] UA With Cult Reflexon 2022 Bacteria LM Ql (Urine sed) TRACE Normal Trace [facility] Comment on above: Performed By: #### 2 438908, 2062046, 2432545, 2455480, 3506203, 35607989 #### [facility] [address] [place] [address] Bilirubin Ql (U) Negative Normal Negative [facility] Comment on above: Performed By: #### 2 856160, 2096620, 6547727, 0483224, 7133594, 13858729 #### [facility] [address] [place] [address] Clarity (U) CLEAR Normal Clear [facility] Comment on above: Performed By: #### 2 548845, 0870488, 0535431, 8769076, 5826288, 35750352 #### [facility] [address] [place] [address] Color (U) YELLOW Normal Yellow [facility] Comment on above: Performed By: #### 2 745295, 0556392, 3165016, 7425896, 7371668, 89221205 #### [facility] [address] [place] [address] Epithelial cells.squamous LM.HPF (Urine sed) [#/Area] 5-8 Normal 0-2 [facility] Comment on above: Performed By: #### 2 419940, 6085073, 1309183, 2409780, 4915556, 44707425 #### [facility] [address] [place] [address] Glucose Test strip (U) [Mass/Vol] Negative Normal Negative [facility] Comment on above: Performed By: #### 2 102713, 3032003, 1479599, 8007077, 7172845, 44794699 #### [facility] [address] [place] [address] Hemoglobin Ql (U) Negative Normal Negative [facility] Comment on above: Performed By: #### 2 707996, 7779771, 4247148, 3680747, 5272113, 63529784 #### [facility] [address] [place] [address] Ketones (U) [Mass/Vol] Negative Normal Negative [facility] Comment on above: Performed By: #### 2 877566, 5211997, 3269003, 1821015, 3980790, 14858008 #### [facility] [address] [place] [address] [place].plasma/[place] .RBC (Bld) [Mass ratio] 0-3 Normal 0-3 [facility] Comment on above: Performed By: #### 2 173427, 4214858, 6850083, 4178214, 8319134, 51878827 #### [facility] [address] [place] [address] Mucus Ql (Urine sed) TRACE Normal [facility] Comment on above: Performed By: #### 2 524968, 1941896, 1463682, 7271764, 6565880, 87228935 #### [facility] [address] [place] [address] Nitrite Ql (U) Negative Normal Negative [facility] Comment on above: Performed By: #### 2 767367, 3403529, 4688166, 1492196, 8323496, 71063139 #### [facility] [address] [place] [address] pH (U) 5.5 [pH] Invalid Interpretation Code 5.0-9.0 [facility] Comment on above: Performed By: #### 2 847955, 4473868, 1216705, 6532719, 1509429, 12689440 #### [facility] [address] [place] [address] Protein (U) [Mass/Vol] Negative Normal Negative [facility] Comment on above: Performed By: #### 2 632969, 0329763, 8517362, 0125891, 2277246, 74506731 #### [facility] [address] [place] [address] Specific gravity (U) [Rel density] <=1.005 Invalid Interpretation Code 1.005-1.030 [facility] Comment on above: Performed By: #### 2 614335, 8778885, 0003814, 4476144, 5088663, 91590184 #### [facility] [address] [place] [address] Type of Urine collection method Clean Catch Normal [facility] Comment on above: Performed By: #### 2 460157, 3734044, 3080039, 8920465, 7957714, 41101531 #### [facility] [address] [place] [address] Urobilinogen Qn (U) 0.2 {Keyla'U}/dL Normal 0.0-1.0 [facility] Comment on above: Performed By: #### 2 730572, 9072423, 7341308, 6110939, 2692027, 39107300 #### [facility] [address] [place] [address] WBC Auto Ql (U) TRACE Abnormal Negative [facility] Comment on above: Performed By: #### 2 161343, 1179707, 5079613, 6101300, 3243655, 09053665 #### [facility] [address] [place] [address] WBC LM.HPF (Urine sed) [#/Area] 0-5 Normal 0-5 [facility] Comment on above: Performed By: #### 2 202547, 0914254, 3327221, 8506411, 8131650, 53317025 #### [facility] [address] [place] [address] URINALYSISOrdered By: Abelino Thapa on 04-27-2023 Bacteria LM Ql (Urine sed) Trace /HPF Normal Trace/HPF FT UA Auto SS Bilirubin Ql (U) Negative (04/27/23 1:41 AM) Normal Negative [facility] UA Auto SS Clarity (U) Clear (04/27/23 1:41 AM) Normal Clear [facility] UA Auto SS Color (U) Yellow (04/27/23 1:41 AM) Normal Yellow [facility] UA Auto SS Epithelial cells.squamous LM.HPF (Urine sed) [#/Area] 5-8 /HPF Normal 0-2/HPF [facility] UA Aut o SS Glucose Test strip (U) [Mass/Vol] Negative (04/27/23 1:41 AM) Normal Negative [facility] UA Auto SS Hemoglobin Ql (U) Negative (04/27/23 1:41 AM) Normal Negative [facility] UA Auto SS Ketones (U) [Mass/Vol] Negative (04/27/23 1:41 AM) Normal Negative [facility] UA Auto SS [place].plasma/[place] .RBC (Bld) [Mass ratio] 0-3 /HPF Normal 0-3/HPF [facility] UA Auto SS Mucus Ql (Urine sed) Trace (04/27/23 1:41 AM) Normal [facility] UA Auto SS Nitrite Ql (U) Negative (04/27/23 1:41 AM) Normal Negative [facility] UA Auto SS pH (U) 5.5 *NA* (04/27/23 1:41 AM) Invalid Interpretation Code 5.0 - 9.0 [facility] UA Auto SS Protein (U) [Mass/Vol] Negative (04/27/23 1:41 AM) Normal Negative [facility] UA Auto SS Specific gravity (U) [Rel density] <=1.005 *NA* (04/27/23 1:41 AM) Invalid Interpretation Code 1.005 - 1.030 [facility] UA Auto SS UA Spec Desc Clean Catch (04/27/23 1:41 AM) Normal [facility] UA Auto SS Urobilinogen Qn (U) 0.2300223 {Keyla'U}/dL Normal 0.0 - 1.0 EU/dL [facility] UA Auto SS WBC Auto Ql (U) Trace *ABN* (04/27/23 1:41 AM) Invalid Interpretation Code Negative [facility] UA Auto SS WBC LM.HPF (Urine sed) [#/Area] 0-5 /HPF Normal 0-5/HPF FT UA Auto SS Auto Diffon 04-26-2023 Basophils/100 WBC (Bld) 0.2 % Normal 0.0-2.0 [facility] Comment on above: Order Comment: Order Added by Discern Expert. Performed By: #### 2 520486, 7771381, 0200115, 8059524, 7814424, 47916142 #### [facility] [address] [place] [address] Basophils/Leukocytes Auto (Bld) [Pure # fraction] 0.0 E9/L Normal 0.0-0.2 [facility] Comment on above: Order Comment: Order Added by Discern Expert. Performed By: #### 2 606503, 8826402, 4608712, 0138182, 5074672, 23528875 #### [facility] [address] [place] [address] Eosinophils/100 WBC (Bld) 0.9 % Normal 0.0-8.0 [facility] Comment on above: Order Comment: Order Added by Discern Expert. Performed By: #### 2 874692, 6271830, 7534282, 4471520, 5222854, 90260099 #### [facility] [address] [place] [address]273 Eosinophils/Leukocytes Auto (Bld) [Pure # fraction] 0.1 E9/L Normal 0.0-0.5 [facility] Comment on above: Order Comment: Order Added by Esdras Expert. Performed By: #### 2 911285, 8237076, 6364292, 2758408, 4852130, 12029623 #### [facility] [address] [place] [address] 607[address] Lymphocytes/100 WBC (Bld) 19.3 % Normal 14.0-50.0 [facility] Comment on above: Order Comment: Order Added by Esdras Expert. Performed By: #### 2 831919, 3412185, 6965744, 4783655, 7944302, 49313563 #### [facility] [address] [place] [address]18 Lymphocytes/Leukocytes Auto (Bld) [Pure # fraction] 1.3 E9/L Normal 1.0-4.0 [facility] Comment on above: Order Comment: Order Added by Esdras Expert. Performed By: #### 2 553416, 1127267, 0326350, 3540035, 3439348, 47799561 #### [facility] [address] [place] [address]37 Monocytes/100 WBC (Bld) 5.9 % Normal 4.0-14.0 [facility] Comment on above: Order Comment: Order Added by Esdras Expert. Performed By: #### 2 922396, 3802097, 0576829, 7854356, 2931365, 07734685 #### [facility] [address] [place] [address] Monocytes/Leukocytes Auto (Bld) [Pure # fraction] 0.4 E9/L Normal 0.2-1.0 [facility] Comment on above: Order Comment: Order Added by Discern Expert. Performed By: #### 2 124557, 9562921, 7430481, 0011213, 3513634, 99162889 #### [facility] [address] [place] [address] Neutrophils/100 WBC (Bld) 73.7 % Normal 36.0-75.0 [facility] Comment on above: Order Comment: Order Added by Discern Expert. Performed By: #### 2 413922, 7744390, 5289873, 1052500, 8539638, 69557029 #### [facility] [address] [place] [address] 15723 Neutrophils/Leukocytes Auto (Bld) [Pure # fraction] 5.1 E9/L Normal 2.0-7.5 [facility] Comment on above: Order Comment: Order Added by Discern Expert. Performed By: #### 2 145809, 0023453, 3805821, 9547183, 8160507, 80368971 #### [facility] [address] [place] [address] 24218 BMPon 04-26-2023 Creatinine [Mass/Vol] 0.8 mg/dL Normal 0.5-1.3 [facility] Comment on above: Performed By: #### 2 910940, 9242366, 7558380, 3062560, 5973609, 63598082 #### [facility] [address] [place] [address] Urea nitrogen [Mass/Vol] 10 mg/dL Normal 5-21 [facility] Comment on above: Performed By: #### 2 729565, 3296452, 4697028, 7366784, 8787287, 78616271 #### [facility] [address] [place] [address] [place] [address] Urea nitrogen/Creatinine [Mass ratio] 12 No Units Normal 10-20 [facility] Comment on above: Performed By: #### 2 236514, 1261598, 4522862, 5239465, 9424220, 20666706 #### [facility] [address] [place] [address] Anion gap [Moles/Vol] 15 mmol/L Normal 6-16 [facility] Comment on above: Performed By: #### 2 441366, 3136345, 0566261, 9345125, 9654121, 03617185 #### [facility] [address] [place] [address] Calcium [Mass/Vol] 9.5 mg/dL Normal 8.9-11.1 [facility] Comment on above: Performed By: #### 2 897798, 2221179, 8155041, 6044330, 9030076, 94724190 #### [facility] [address] [place] [address] Chloride [Moles/Vol] 103 mmol/L Normal 101-111 [facility] Comment on above: Performed By: #### 2 063883, 6728241, 9104702, 5230241, 8134953, 11342089 #### [facility] [address] [place] [address] CO2 [Moles/Vol] 22 mmol/L Normal 21-31 [facility] Comment on above: Performed By: #### 2 813117, 3557423, 8275404, 7468390, 6533438, 29696327 #### [facility] [address] [place] [address] Glucose [Mass/Vol] 91 mg/dL Normal 55-199 [facility] Comment on above: Result Comment: If t his glucose result represents a fasting glucose, interpretation should refer to the following reference range: 55-99 mg/dL Performed By: #### 2 030176, 9545221, 6598120, 9954949, 6004981, 42450652 #### [facility] [address] [place] [address] Potassium [Moles/Vol] 3.6 mmol/L Normal 3.5-5.3 [facility] Comment on above: Performed By: #### 2 027009, 2397046, 7035107, 7241438, 0668577, 35521730 #### [facility] [address] [place] [address] Sodium [Moles/Vol] 136 mmol/L Normal 135-145 [facility] Comment on above: Performed By: #### 2 372729, 8570253, 7320787, 3921318, 4664871, 56355666 #### [facility] [address] [place], [place] [address] CBC w/ Auto Diffon 3 Erythrocyte distribution width (RBC) [Ratio] 15.3 % High 10.9-14.2 [facility] Comment on above: Performed By: #### 2 873451, 5212682, 7534761, 5082713, 1612853, 23737118 #### [facility] [address] [place] [address] Hematocrit (Bld) [Volume fraction] 35.4 % Normal 34.0-46.0 [facility] Comment on above: Performed By: #### 2 927164, 7665822, 5686587, 4209949, 5997495, 29598506 #### [facility] [address] [place] [address] Hemoglobin (Bld) [Mass/Vol] 11.6 g/dL Low 12.0-16.0 [facility] Comment on above: Performed By: #### 2 929674, 0859070, 0052903, 4938548, 5427667, 22491503 #### [facility] [address] [place] [address] MCH (RBC) [Entitic mass] 25.6 pg Low 27.0-34.0 [facility] Comment on above: Performed By: #### 2 289420, 8562291, 0802317, 5818822, 7817393, 89498622 #### [facility] [address] [place] [address] MCHC (RBC) [Mass/Vol] 32.8 g/dL Normal 31.4-36.0 [facility] Comment on above: Performed By: #### 2 230340, 6160215, 2111463, 0034138, 5681079, 43838054 #### [facility] [address] [place] [address] MCV (RBC) [Entitic vol] 77.8 fL Low 80.0-100.0 [facility] Comment on above: Performed By: #### 2 049116, 9551216, 7668941, 5139022, 9211967, 02233624 #### [facility] [address] [place] [address] 612[address] Platelet mean volume (Bld) [Entitic vol] 7.6 fL Normal 6.4-10.8 [facility] Comment on above: Performed By: #### 2 400541, 3204775, 7707919, 9183577, 5048442, 11208977 #### [facility] [address] [place] [address] Platelets (Bld) [#/Vol] 272.0 E9/L Normal 150.0-500.0 [facility] Comment on above: Performed By: #### 2 233072, 2205026, 6756135, 3096621, 3314679, 67323190 #### [facility] [address] [place] [address] 64878 RBC (Bld) [#/Vol] 4.6 E12/L Normal 4.3-5.9 [facility] Comment on above: Performed By: #### 2 747497, 2436867, 9491532, 7109852, 3325151, 71591191 #### [facility] [address] [place] [address]69[address] WBC corrected for nucl RBC Auto (Bld) [#/Vol] 7.0 E9/L Normal 4.0-11.[address] [facility] Comment on above: Performed By: #### 2 601729, 1580034, 5581837, 9049153, 4362642, 04491942 #### [facility] [address] [place] [address] CHEMISTRYOrdered By: SYSTEM SYSTEM on 04-26-2023 Albumin [...] 104 mL/min/1.73 m2 Normal >=59mL/min/1.7 3 m2 [facility] Chem S Globulin (S) [Mass/Vol] 4.6 g/dL High 1.4 - 4.0 gm/dL FT Remisol Glucose [Mass/Vol] 91 mg/dL Normal 55 - 199 mg/dL [facility] Remisol Lipase [Catalytic activity/Vol] 47 U/L Normal 13 - 58 unit/L [facility] Remisol Potassium [Moles/Vol] 3.6 mmol/L Normal 3.5 - 5.3 mmol/L [facility] Remisol Protein [Mass/Vol] 8.6 g/dL High 6.0 - 7.8 gm/dL [facility] Remisol Sodium [Moles/Vol] 136 mmol/L Normal 135 - 145 mmol/L [facility] Remisol Urea nitrogen [Mass/Vol] 10 mg/dL Normal 5 - 21 mg/dL [facility] Remisol Urea nitrogen/Creatinine [Mass ratio] 12 mg/mg Normal 10 - 20 [facility] Remisol Consent for Treatmenton Consent for Treatment [id number] .00CD:127 Normal [facility] ED Note-Physicianon 04-26-20 ED Note-Physician [id number] .00CD:127 Normal [facility] HEMATOLOGYOrdered By: SYSTEM SYSTEM on 04-26-2023 Basophils/100 WBC (Bld) 0.2 % Normal 0.0 - 2.0 % [facility] HemeAutoSS Basophils/Leukocytes Auto (Bld) [Pure # fraction] 0.0 E9/L Normal 0.0 - 0.2 E9/L FT HemeAutoSS Eosinophils/100 WBC (Bld) 0.9 % Normal 0.0 - 8.0 % FT HemeAutoSS Eosinophils/Leukocytes Auto (Bld) [Pure # fraction] 0.1 E9/L Normal 0.0 - 0.5 E9/L FT HemeAutoSS Lymphocytes/100 WBC (Bld) 19.3 % Normal 14.0 - 50.0 % FT HemeAutoSS Lymphocytes/Leukocytes Auto (Bld) [Pure # fraction] 1.3 E9/L Normal 1.0 - 4.0 E9/L FT HemeAutoSS Monocytes/100 WBC (Bld) 5.9 % Normal [...] Bilirubin.indirect [Mass or moles/Vol] UTC Abnormal 0.1-0.9 [facility] Comment on above: Result Comment: Resu lt verified by Discern Rule. Performed result UTC (Unable to Calculate) was sent as an Alpha code due the inability to calculate a valid numeric value. Performed By: #### 2 834414, 6442016, 8296858, 5819401, 5380822, 66904885 ####[facility] [address] [place] [address] Albumin [Mass/Vol] 4.0 g/dL Normal 3.3-5.0 [facility] Comment on above: Performed By: #### 2 561545, 9078666, 9238017, 0043199, 0290881, 28430754 ####[address] [place] [address] Albumin/Globulin (S) [Mass conc ratio] 0.9 Low 1.1-2.2 [facility] Comment on above: Performed By: #### 2 387558, 6150774, 9891453, 6347397, 9210117, 18344636 ####[address] [address] ALP [Catalytic activity/Vol] 63 Int._Unit/L Normal 21-98 [facility] Comment on above: Performed By: #### 2 283883, 7318714, 0524865, 9064342, 5844454, 14508513 ####[address] [place] [address] ALT No additional P-5'-P [Catalytic activity/Vol] 16 Int._Unit/L Normal 6-46 [facility] Comment on above: Performed By: #### 2 894496, 3289007, 4272755, 9140596, 2137097, 47490139 ####[facility] [address] [place] [address] AST [Catalytic activity/Vol] 16 Int._Unit/L Normal 5-43 [facility] Comment on above: Performed By: #### 2 997909, 9594255, 2775545, 5109911, 2084048, 34738303 ####[address] [place] [address] Bilirubin [Mass/Vol] 0.6 mg/dL Normal 0.0-1.1 [facility] Comment on above: Performed By: #### 2 081630, 2569034, 9002330, 3287527, 0892192, 37336202 ####[facility] [address] [place] [address] Globulin (S) [Mass/Vol] 4.6 g/dL High 1.4-4.0 [facility] Comment on above: Performed By: #### 2 822420, 9732461, 9442414, 1457771, 5932641, 80221882 ####[facility] [address] [place] [address] Protein [Mass/Vol] 8.6 g/dL High 6.0-7.8 [facility] Comment on above: Performed By: #### 2 650640, 4792867, 7696503, 4649751, 4138106, 68392996 ####[facility] [address] [place] [address] Bilirubin.direct [Mass/Vol] mg/dL Normal 0.1-0.4 [facility] Comment on above: Performed By: #### 2 954379, 8810492, 5347761, 2085689, 0526350, 55055358 ####[facility] [address] [place] [address] Lipase Levelon 04-26-2023 Lipase [Catalytic activity/Vol] 47 U/L Normal 13-58 [facility] Comment on above: Performed By: #### 2 171869, 3961715, 4270125, 6819289, 6089707, 34336920 #### [facility] [address] [place] [address] eGFRon 04-26-2023 GFR/1.73 sq M.predicted among non-blacks MDRD (S/P/Bld) [Vol rate/Area] 104 mL/min/1.73 m2 Normal >=59 [facility] Comment on above: Order Comment: Order added by Discern Expert. Result Comment: Bean Weigher sammie kidney disease could be indicated at eGFR's of less than 60 mL/min/1.73m2. Kidney failure is indicated at less than 15 mL/min/1.73m2. Performed By: #### 2 842099, 7272384, 2609134, 2398023, 4593840, 90326840 #### [facility] [address] [place] [address] Auto Diffon 04-15-2023 Basophils/100 WBC (Bld) 0.3 % Normal 0.0-2.0 [facility] Comment on above: Order Comment: Order Added by Discern Expert. Performed By: #### 2 576850, 2650192, 7398215, 9429736, 8441600, 98979113 #### [facility] [address] [place] [address] Basophils/Leukocytes Auto (Bld) [Pure # fraction] 0.0 E9/L Normal 0.0-0.2 [facility] Comment on above: Order Comment: Order Added by Discern Expert. Performed By: #### 2 213191, 2266113, 2905515, 0547507, 0136193, 38998723 #### [facility] [address] [place] [address] Eosinophils/100 WBC (Bld) 1.9 % Normal 0.0-8.0 [facility] Comment on above: Order Comment: Order Added by Discern Expert. Performed By: #### 2 570410, 1049345, 3955555, 2843370, 6255107, 91820019 #### [facility] [address] [place] [address] Eosinophils/Leukocytes Auto (Bld) [Pure # fraction] 0.1 E9/L Normal 0.0-0.5 [facility] Comment on above: Order Comment: Order Added by Discern Expert. Performed By: #### 2 182211, 0924014, 2616553, 1691130, 6340792, 56292234 #### [facility] [address] [place] [address] Lymphocytes/100 WBC (Bld) 20.5 % Normal 14.0-50.0 [facility] Comment on above: Order Comment: Order Added by Discern Expert. Performed By: #### 2 699627, 9573657, 1206896, 8113430, 9722631, 20274865 #### [facility] [address] [place] [address] Lymphocytes/Leukocytes Auto (Bld) [Pure # fraction] 1.4 E9/L Normal 1.0-4.0 [facility] Comment on above: Order Comment: Order Added by Discern Expert. Performed By: #### 2 959895, 3573567, 2582837, 4615744, 4319953, 05809129 #### [facility] [address] [place] [address] Monocytes/100 WBC (Bld) 7.6 % Normal 4.0-14.0 [facility] Comment on above: Order Comment: Order Added by Esdras Expert. Performed By: #### 2 809405, 8635891, 7142556, 4836467, 5753614, 44482880 #### [facility] [address] [place] [address]65[address] Monocytes/Leukocytes Auto (Bld) [Pure # fraction] 0.5 E9/L Normal 0.2-1.0 [facility] Comment on above: Order Comment: Order Added by Esdras Expert. Performed By: #### 2 003919, 6070568, 3197716, 4630859, 1714706, 31581649 #### [facility] [address] [place] [address] Neutrophils/100 WBC (Bld) 69.7 % Normal 36.0-75.0 [facility] Comment on above: Order Comment: Order Added by Esdras Expert. Performed By: #### 2 995609, 8358122, 8668216, 3349046, 5339163, 91965596 #### [facility] [address] [place] [address] Neutrophils/Leukocytes Auto (Bld) [Pure # fraction] 4.6 E9/L Normal 2.0-7.5 [facility] Comment on above: Order Comment: Order Added by Discern Expert. Performed By: #### 2 561670, 9909864, 0343236, 9511561, 9754491, 06291430 #### [facility] [address] [place] [address] BMPon 04-15-2023 Creatinine [Mass/Vol] 0.7 mg/dL Normal 0.5-1.3 [facility] Comment on above: Performed By: #### 2 631404, 7945818, 4274156, 0553904, 2667190, 41874623 #### [facility] [address] [place] [address] Urea nitrogen [Mass/Vol] 8 mg/dL Normal 5-21 [facility] Comment on above: Performed By: #### 2 724824, 9037909, 4826795, 0111417, 9638254, 88520533 #### [facility] [address] [place] [address] Urea nitrogen/Creatinine [Mass ratio] 11 No Units Normal 10-20 [facility] Comment on above: Performed By: #### 2 613180, 1897277, 1912110, 7859191, 5852225, 58208176 #### [facility] [address] [place] [address] Anion gap [Moles/Vol] 13 mmol/L Normal 6-16 [facility] Comment on above: Performed By: #### 2 698309, 5946915, 5760664, 7792067, 9144530, 60176906 #### [facility] [address] [place] [address] Calcium [Mass/Vol] 9.0 mg/dL Normal 8.9-11.1 [facility] Comment on above: Performed By: #### 2 869667, 1683206, 3071563, 8553430, 6921816, 70165750 #### [facility] [address] [place] [address] Chloride [Moles/Vol] 104 mmol/L Normal 101-111 [facility] Comment on above: Performed By: #### 2 071909, 6904038, 2591872, 0533616, 1606818, 92802038 #### [facility] [address] [place] [address] CO2 [Moles/Vol] 21 mmol/L Normal 21-31 [facility] Comment on above: Performed By: #### 2 976878, 1625146, 7493323, 7623857, 2639287, 48782951 #### [facility] [address] [place] [address] Glucose [Mass/Vol] 88 mg/dL Normal 55-199 [facility] Comment on above: Result Comment: If t his glucose result represents a fasting glucose, interpretation should refer to the following reference range: 55-99 mg/dL Performed By: #### 2 018091, 8720828, 7293703, 2155916, 2115047, 39815387 #### [facility] [address] [place] [address] Potassium [Moles/Vol] 3.4 mmol/L Low 3.5-5.3 [facility] Comment on above: Performed By: #### 2 615169, 8152887, 6848538, 1585382, 2444605, 78583461 #### [facility] [address] [place] [address] Sodium [Moles/Vol] 135 mmol/L Normal 135-145 [facility] Comment on above: Performed By: #### 2 368548, 8356450, 0741433, 1241752, 6315553, 97124662 #### [facility] [address] [place] [address] CBC w/ Auto Diffon 3 Erythrocyte distribution width (RBC) [Ratio] 15.0 % High 10.9-14.2 [facility] Comment on above: Performed By: #### 2 913492, 1486748, 2663576, 4307360, 6551244, 14184565 #### [facility] [address] [place] [address] Hematocrit (Bld) [Volume fraction] 34.6 % Normal 34.0-46.0 [facility] Comment on above: Performed By: #### 2 847421, 2665564, 3230508, 7926747, 2604491, 89864716 #### [facility] [address] [place] [address] Hemoglobin (Bld) [Mass/Vol] 11.3 g/dL Low 12.0-16.0 [facility] Comment on above: Performed By: #### 2 449891, 8897577, 5911608, 6797877, 8545507, 82785258 #### [facility] [address] [place], [place] [address] MCH (RBC) [Entitic mass] 25.6 pg Low 27.0-34.0 [facility] Comment on above: Performed By: #### 2 141991, 8797680, 7410038, 3043658, 3533088, 15856292 #### [facility] [address] [place], [place] [address] MCHC (RBC) [Mass/Vol] 32.6 g/dL Normal 31.4-36.0 [facility] Comment on above: Performed By: #### 2 329459, 4127581, 2906137, 7113497, 6304232, 70841851 #### [facility] [address] [place], [place] [address] MCV (RBC) [Entitic vol] 78.6 fL Low 80.0-100.0 [facility] Comment on above: Performed By: #### 2 902959, 7758195, 9262388, 1877132, 7135625, 59695826 #### [facility] [address] [place] [address] Platelet mean volume (Bld) [Entitic vol] 8.1 fL Normal 6.4-10.8 [facility] Comment on above: Performed By: #### 2 273169, 7824170, 0766334, 8677135, 2109130, 26267811 #### [facility] [address] [place] [address] Platelets (Bld) [#/Vol] 243.0 E9/L Normal 150.0-500.0 [facility] Comment on above: Performed By: #### 2 984728, 0384600, 3306958, 9212372, 5310763, 14026701 #### [facility] [address] [place] [address] RBC (Bld) [#/Vol] 4.4 E12/L Normal 4.3-5.9 [facility] Comment on above: Performed By: #### 2 378495, 9126170, 9296330, 1687885, 8807279, 68825754 #### [facility] [address] [place] [address] WBC corrected for nucl RBC Auto (Bld) [#/Vol] 6.6 E9/L Normal 4.0-11.0 [facility] Comment on above: Performed By: #### 2 307292, 3568656, 2707859, 0590813, 3017331, 36182352 #### [facility] [address] [place] [address] CHEMISTRYOrdered By: SYSTEM SYSTEM on 04-15-2023 Albumin [Mass/Vol] 3.7 g/dL Normal 3.3 - 5.0 gm/dL FT [...] 121 mL/min/1.73 m2 Normal >=59mL/min/1.7 3 m2 FT Chem S Globulin (S) [Mass/Vol] 4.0 g/dL Normal 1.4 - 4.0 gm/dL [facility] Remisol Glucose [Mass/Vol] 88 mg/dL Normal 55 - 199 mg/dL FT Remisol Lipase [Catalytic activity/Vol] 45 U/L Normal 13 - 58 unit/L [facility] Remisol Magnesium [Mass/Vol] 1.8 mg/dL Normal 1.3 [...] ratio] 11 mg/mg Normal 10 - 20 [facility] Remisol COAGULATIONOrdered By: Acosta Aguirre on 04-15-2023 aPTT Coag (PPP) [Time] 28.9 s Normal 25.1 - 36.5 second(s) [facility] Auto Coag INR Coag (PPP) [Relative time] 1.0 {INR} Invalid Interpretation Code [facility] Auto Coag PT Coag (PPP) [Time] 11.7 s Normal 9.4 - 1 2.5 second(s) [facility] Auto Coag Discharge Instructionson Discharge Instructions [id number]# 1.00CD:127 Normal [facility] ED Clinical Summaryon 2022 ED Clinical Summary [place] [id number] ED Clinical Summary Person Information Name: ROLA AGUILAR Elena/[facility] Age: 27 Years : 1995 Sex: Female Language: [place] PCP: Kale RENDON MD Marital Status: Single Phone: [phone] Visit Id: Visit Reason: Abdominal pain - [...] 04/15/2023 01:12:27 04/15/2023 01:12:27 04/15/2023 01:12:27 ADDRESS: [address] [place] [address] [address] [place] [phone] PHYS DOC NOTES: MEDICAL INFORMATION: Prescriptions Given: Medications to Continue with No Changes Other Medications acetaminophen-hydroco done ([place] 325 mg-5 mg oral tablet) 1 Tablets By Mouth every 6 hours as needed for pain. Refills: 0. acetaminophen-hydroco done ([place] 325 mg-5 mg oral tablet) 1 Tablets [...] Follow up: With: Address: When: Kale RENDON [address] [place] [address], [facility] [place] [phone] Business (1) In 3 days 04/18/2023 Comments: Make sure to follow-up with your GI as instructed. Return to the emergency room if your pain gets worse, vomiting, vaginal bleeding or any new symptoms. DIAGNOSIS: 1:Abdominal pain; 2:Exacerbation of Crohn's disease Normal [facility] ED Note-Physicianon 04-15-20 ED Note-Physician Basic [...] and Complexity of Problems Differential Diagnosis: [] [facility] Data External documents reviewed: [] My [...] Kale RENDON (more content not included)... Normal [facility] Comment on above: Result Comment: Elec [...] these instructions at home: Medicines ? Take vxjl-llb-unawobe and prescription medicines only as told by [...] your condition for any changes. ? Take gehk-tlv-hzvsjvm and prescription medicines only as told by [...] provider. Document Revised: 10/28/2020 Document Reviewed: 01/18/2020 [employer] Patient Education ? 2022 [employer] Immunology Crohn's Disease Crohn's disease is [...] sample tests. (more content not included)... Normal [facility] ED Patient Summaryon 023 ED Patient Summary [address] [address] Patient Discharge Instructions Person Information Name: ROLA AGUILAR Age: 27 Years Arrival Date: 04/14/2023 23:39:41 Discharge Diagnosis: 1:Abdominal pain; 2:Exacerbation of Crohn's disease Primary Care Physician: Kale RENDON MD Provider Information Primary Provider: Carolyn Mcmahon M.D. Advanced Registered Nurse Maternity:None The exam and treatment you received in the Emergency Department were for an urgent problem and are not intended as complete care. It is important that you follow up with a doctor, nurse practitioner, or physician?s housekeeping assistant for ongoing care. If your symptoms [...] Follow-up Instructions: With: Address: When: Kale RENDON [address] [place], [place] [phone] Business (1) In 3 days 04/18/2023 Comments: [...] opioids can be used to help relieve nkikdail-mm-recsum pain and are often prescribed following a [...] learn a (more content not included)... Normal [facility] HEMATOLOGYOrdered By: SYSTEM SYSTEM on 04-15-2023 Basophils/100 WBC (Bld) 0.3 % Normal 0.0 - 2.0 % FT [...] 10.8 fL [facility] HemeAutoSS Platelets (Bld) [#/Vol] 243.0 E9/L Normal 150.0 - 500.0 E9/L [facility] HemeAutoSS RBC (Bld) [#/Vol] 4.4 E12/L Normal 4.3 - 5.9 E12/L [facility] HemeAutoSS WBC corrected for nucl RBC Auto (Bld) [#/Vol] 6.6 E9/L Normal 4.0 - 11.0 E9/L [facility] HemeAutoSS Hep Func Panelon 04-15-2023 Bilirubin.indirect [Mass or moles/Vol] UTC Abnormal 0.1-0.9 [facility] Comment on above: Result Comment: Resu lt verified by Discern Rule. Performed result UTC (Unable to Calculate) was sent as an Alpha code due the inability to calculate a valid numeric value. Performed By: #### 2 926201, 1345028, 9358690, 1002186, 1421917, 69310843 #### [facility] [address] [place] [address] Albumin [Mass/Vol] 3.7 g/dL Normal 3.3-5.0 [facility] Comment on above: Performed By: #### 2 251778, 5522693, 2515567, 8116541, 5111106, 69672287 #### [facility] [address] [place] [address] Albumin/Globulin (S) [Mass conc ratio] 0.9 Low 1.1-2.2 [facility] Comment on above: Performed By: #### 2 572831, 7360620, 3592675, 5631128, 0966056, 63392183 #### [facility] [address] [place] [address] ALP [Catalytic activity/Vol] 55 Int._Unit/L Normal 21-98 [facility] Comment on above: Performed By: #### 2 472507, 8702831, 8026187, 6340531, 0296680, 87758784 #### [facility] [address] [place] [address] ALT No additional P-5'-P [Catalytic activity/Vol] 17 Int._Unit/L Normal 6-46 [facility] Comment on above: Performed By: #### 2 328947, 2293624, 1625744, 5213672, 3626824, 60365107 #### [facility] [address] [place] [address] AST [Catalytic activity/Vol] 17 Int._Unit/L Normal 5-43 [facility] Comment on above: Performed By: #### 2 280710, 5243603, 5289299, 8519415, 5320410, 99393618 #### [facility] [address] [place] [address] Bilirubin [Mass/Vol] 0.5 mg/dL Normal 0.0-1.1 [facility] Comment on above: Performed By: #### 2 398797, 1242212, 8238840, 6114829, 4695953, 53421581 #### [facility] [address] [place] [address] Globulin (S) [Mass/Vol] 4.0 g/dL Normal 1.4-4.0 [facility] Comment on above: Performed By: #### 2 582090, 0984895, 5853477, 2546146, 6846491, 25794869 #### [facility] [address] [place] [address] Protein [Mass/Vol] 7.7 g/dL Normal 6.0-7.8 [facility] Comment on above: Performed By: #### 2 231448, 0590802, 8435820, 9445726, 1266264, 92449147 #### [facility] [address] [place] [address] Bilirubin.direct [Mass/Vol] mg/dL Normal 0.1-0.4 [facility] Comment on above: Performed By: #### 2 052146, 9841055, 5978625, 1246294, 6225071, 03541619 #### [facility] [address] [place] [address] Lipase Levelon 04-15-2023 Lipase [Catalytic activity/Vol] 45 U/L Normal 13-58 [facility] Comment on above: Performed By: #### 2 879276, 1571563, 2060713, 2474171, 6144562, 66985004 #### [facility] [address] [place] [address] Magnesiumon 04-15-2023 Magnesium [Mass/Vol] 1.8 mg/dL Normal 1.3-2.4 [facility] Comment on above: Performed By: #### 2 443978 ####[facility] [address] [place] [address] PT & PTTon 04-15-2023 aPTT Coag (PPP) [Time] 28.9 second(s) Normal 25.1-36.5 [facility] Comment on above: Result Comment: Para [...] the same coagulation reagent and instrumentation as [facility]. Currently there are no coagulation studies available worldwide for children to 14 days, and no normal ranges. Heparin therapeutic range (represented by Anti-Factor Xa activity of 0.2 - 0.4 U/mL) corresponds to PTT of 56.6 - 109.0 sec. Performed By: #### 2 949032, 3010744, 4391210, 2799043, 1346286, 64698839 #### [facility] [address] [place] [address] INR Coag (PPP) [Relative time] 1.0 {INR} Invalid Interpretation Code [facility] Comment on above: Result Comment: INR results are specifically intended to assess patients stabilized on long-term Anticoagulation therapy suggested INR?s ?Less Intensive Anticoagulation? 2.0 ? 3.0 Conventional Range 3.0 ? 4.5 Performed By: #### 2 123799, 8575080, 1078882, 9003100, 8272952, 17945809 #### [facility] [address] [place] [address] PT Coag (PPP) [Time] 11.7 second(s) Normal 9.4-12.5 [facility] Comment on above: Result Comment: 15 [...] the same coagulation reagent and instrumentation as [facility]. Currently there are no coagulation studies available worldwide for children to 14 days, and no normal ranges. Performed By: #### 2 839359, 4522140, 9357017, 2234053, 6032912, 59908970 #### [facility] [address] [place] [address] UA With Cult Reflexon 2022 Bacteria LM Ql (Urine sed) TRACE Normal Trace [facility] Comment on above: Performed By: #### 1 5634163 #### [facility] [address] [place] [address] Bilirubin Ql (U) Negative Normal Negative [facility] Comment on above: Performed By: #### 1 8057722 #### [facility] [address] [place] [address] Clarity (U) CLEAR Normal Clear [facility] Comment on above: Performed By: #### 1 1542401 #### [facility] [address] [place] [address] Color (U) YELLOW Normal Yellow [facility] Comment on above: Performed By: #### 1 7442645 #### [facility] [address] [place] [address] Epithelial cells.squamous LM.HPF (Urine sed) [#/Area] 5-8 Normal 0-2 [facility] Comment on above: Performed By: #### 1 0404746 #### [facility] [address] [place] [address] Glucose Test strip (U) [Mass/Vol] Negative Normal Negative [facility] Comment on above: Performed By: #### 1 8432659 #### [facility] [address] [place] [address] Hemoglobin Ql (U) Negative Normal Negative [facility] Comment on above: Performed By: #### 1 3832865 #### [facility] [address] [place] [address] Ketones (U) [Mass/Vol] TRACE Invalid Interpretation Code Negative [facility] Comment on above: Performed By: #### 1 7828924 #### [facility] [address] [place] [address] [place].plasma/[place] .RBC (Bld) [Mass ratio] 0-3 Normal 0-3 [facility] Comment on above: Performed By: #### 1 5418015 #### [facility] [address] [place] [address] Mucus Ql (Urine sed) TRACE Normal [facility] Comment on above: Performed By: #### 1 7711780 #### [facility] [address] [place] [address] Nitrite Ql (U) Negative Normal Negative [facility] Comment on above: Performed By: #### 1 0116470 #### [facility] [address] [place] [address] pH (U) 6.0 [pH] Invalid Interpretation Code 5.0-9.0 [facility] Comment on above: Performed By: #### 1 5577745 #### [facility] [address] [place] [address] Protein (U) [Mass/Vol] TRACE Abnormal Negative [facility] Comment on above: Performed By: #### 1 4944920 #### [facility] [address] [place] [address] Specific gravity (U) [Rel density] 1.025 Invalid Interpretation Code 1.005-1.030 [facility] Comment on above: Performed By: #### 1 8385850 #### [facility] [address] [place] [address] Type of Urine collection method Clean Catch Normal [facility] Comment on above: Performed By: #### 1 6585090 #### [facility] [address] [place] [address] Urobilinogen Qn (U) 0.2 {Keyla'U}/dL Normal 0.0-1.0 [facility] Comment on above: Performed By: #### 1 1866396 #### [facility] [address] [place] [address] WBC Auto Ql (U) TRACE Abnormal Negative [facility] Comment on above: Performed By: #### 1 4500617 #### [facility] [address] [place] [address] WBC LM.HPF (Urine sed) [#/Area] 0-5 Normal 0-5 [facility] Comment on above: Performed By: #### 1 7287906 #### [facility] [address] [place] [address] URINALYSISOrdered By: Acosta Aguirre on 04-15-2023 Bacteria LM Ql (Urine sed) Trace /HPF Normal Trace/HPF [facility] UA Auto SS Bilirubin Ql (U) Negative (04/15/23 12:21 AM) Normal Negative [facility] UA Auto SS Clarity (U) Clear (04/15/23 12:21 AM) Normal Clear [facility] UA Auto SS Color (U) Yellow (04/15/23 12:21 AM) Normal Yellow [facility] UA Auto SS Epithelial [...] Interpretation Code Negative [facility] UA Auto SS [place].plasma/[place] .RBC (Bld) [Mass ratio] 0-3 /HPF Normal 0-3/HPF [facility] UA Auto SS Mucus Ql (Urine sed) Trace (04/15/23 12:21 AM) Normal [facility] UA Auto SS Nitrite Ql (U) Negative (04/15/23 12:21 AM) Normal Negative [facility] UA Auto SS pH (U) 6.0 *NA* (04/15/23 12:21 AM) Invalid Interpretation Code 5.0 - 9.0 [facility] UA Auto SS Protein (U) [Mass/Vol] Trace *ABN* (04/15/23 12:21 AM) Invalid Interpretation Code Negative [facility] UA Auto SS Specific gravity (U) [Rel density] 1.025 *NA* (04/15/23 12:21 AM) Invalid Interpretation Code 1.005 - 1.030 [facility] UA Auto SS UA Spec Desc Clean Catch (04/15/23 12:21 AM) Normal [facility] UA Auto SS Urobilinogen Qn (U) 0.1262524 {Keyla'U}/dL Normal 0.0 - 1.0 EU/dL [facility] UA Auto SS WBC Auto Ql (U) Trace *ABN* (04/15/23 12:21 AM) Invalid Interpretation Code Negative [facility] UA Auto SS WBC LM.HPF (Urine sed) [#/Area] 0-5 /HPF Normal 0-5/HPF [facility] UA Auto SS eGFRon 04-15-2023 GFR/1.73 sq M.predicted among non-blacks MDRD (S/P/Bld) [Vol rate/Area] 121 mL/min/1.73 m2 Normal >=59 [facility] Comment on above: Order Comment: Order added by Discern Expert. Result Comment: Bean Weigher sammie kidney disease could be indicated at eGFR's of less than 60 mL/min/1.73m2. Kidney failure is indicated at less than 15 mL/min/1.73m2. Performed By: #### 2 380145, 8300702, 9292042, 6358698, 2519823, 39351813 #### [facility] [address] [place] [address] Consent for Treatmenton 03-24 Consent for Treatment [id number] .00CD:127 Normal [facility] C Urineon 03-12-2023 Bacteria identified Cx [...] Locations R1: This test was performed at: [facility], [address] [place] [address], [address] , , [facility] Comment on above: Performed By: #### 2 238409, 5126191, 7535725, 0685674, 9773774, 64172530 #### [facility] [address] [place] [address] ED Note-Physicianon 03-12-20 23 ED Note-Physician Basic Information Time Seen: Wil [...] to her GI doctor, worst at the [facility], and because of the pain she [...] and Complexity of Problems Differential Diagnosis: [] [facility] Data External documents reviewed: [] My [...] her though, she needs to follow-up with GENETIC COUNSELOR. Patient was understanding. Discussed return precautions. She [...] hCG Quantitat (more content not included)... Normal [facility] Comment on above: Result Comment: Elec tronically Signed By: Wil Chandler PA-C\.br\Date and Time Signed: 03/10/23 22:46 EDT\.br\Electronically Co-Signed By: Elliot Macias DO\.br\Date and Time Co-Signed: 03/12/23 20:51 EDT\.br\Electronically Co-Signed By: Bernadette Francis PA-C\.br\Date and Time Co-Signed: 04/05/23 13:26 EDT Discharge Instructionson Discharge Instructions [id number]# 1.00CD:127 Normal [facility] US 1st Trimesteron 03-11-2023 US 1st [...] Comments Unknown History 1 Para 1 Normal [facility] US Transvaginalon 03-11-2023 US Transvaginal Exam Date/Time: 03/10/2023 21:17 EDT Reason for Exam: pelvic pain Report Please refer to the report of ultrasound of on 03/10/2023. Ordering Provider: Wil Chandler FINAL REPORT Dictated: 03/11/2023 7:25 am Magdi Garg M.D. Signed (Electronic Signature): 03/11/2023 7:25 am Signed by: Magdi Garg M.D. Transcribed by: CLARICE Technologist: YESSICA Normal [facility] Auto Diffon 03-10-2023 Basophils/100 WBC (Bld) 0.4 % Normal 0.0-2.0 [facility] Comment on above: Order Comment: Order Added by Discern Expert. Performed By: #### 2 235368, 7382276, 6858789, 7447880, 6217833, 55074596 #### [facility] [address] [place] [address] Basophils/Leukocytes Auto (Bld) [Pure # fraction] 0.0 E9/L Normal 0.0-0.2 [facility] Comment on above: Order Comment: Order Added by Discern Expert. Performed By: #### 2 555234, 9187362, 8336582, 1312668, 3912072, 13754067 #### [facility] [address] [place] [address] Eosinophils/100 WBC (Bld) 1.5 % Normal 0.0-8.0 [facility] Comment on above: Order Comment: Order Added by Discern Expert. Performed By: #### 2 744779, 8113556, 9368452, 1727576, 3757788, 98885032 #### [facility] [address] [place] [address] Eosinophils/Leukocytes Auto (Bld) [Pure # fraction] 0.1 E9/L Normal 0.0-0.5 [facility] Comment on above: Order Comment: Order Added by Discern Expert. Performed By: #### 2 329563, 3967268, 4125265, 7380285, 2842789, 06530653 #### [facility] [address] [place] [address] Lymphocytes/100 WBC (Bld) 42.5 % Normal 14.0-50.0 [facility] Comment on above: Order Comment: Order Added by Discern Expert. Performed By: #### 2 282368, 5151409, 5895019, 7740710, 6903818, 03086510 #### [facility] [address] [place] [address] Lymphocytes/Leukocytes Auto (Bld) [Pure # fraction] 2.1 E9/L Normal 1.0-4.0 [facility] Comment on above: Order Comment: Order Added by Discern Expert. Performed By: #### 2 154551, 2689972, 5686874, 1650219, 4251676, 47767612 #### [facility] [address] [place] [address] Monocytes/100 WBC (Bld) 8.6 % Normal 4.0-14.0 [facility] Comment on above: Order Comment: Order Added by Discern Expert. Performed By: #### 2 782921, 8142611, 2829324, 4509575, 5585079, 49299896 #### [facility] [address] [place] [address] Monocytes/Leukocytes Auto (Bld) [Pure # fraction] 0.4 E9/L Normal 0.2-1.0 [facility] Comment on above: Order Comment: Order Added by Discern Expert. Performed By: #### 2 385376, 4148322, 7538110, 4643731, 0711591, 88904488 #### [facility] [address] [place] [address] Neutrophils/100 WBC (Bld) 47.0 % Normal 36.0-75.0 [facility] Comment on above: Order Comment: Order Added by Discern Expert. Performed By: #### 2 885032, 5201627, 0991683, 0184829, 1626889, 72873108 #### [facility] [address] [place] [address] Neutrophils/Leukocytes Auto (Bld) [Pure # fraction] 2.3 E9/L Normal 2.0-7.5 [facility] Comment on above: Order Comment: Order Added by Discern Expert. Performed By: #### 2 757221, 8676261, 4180407, 6003606, 7080955, 85441356 #### [facility] [address] [place] [address] B hCG Qualon 03-10-2023 Beta hCG Ql Positive Normal [facility] Comment on above: Performed By: #### 2 443743, 4009458, 3221658, 3102486, 6582920, 08100361 #### [facility] [address] [place] [address] BMPon 03-10-2023 Creatinine [Mass/Vol] 0.6 mg/dL Normal 0.5-1.3 [facility] Comment on above: Performed By: #### 2 555935, 6334395, 2657358, 0571558, 0047037, 87329129 #### [facility] [address] [place] [address] Urea nitrogen [Mass/Vol] 9 mg/dL Normal 5-21 [facility] Comment on above: Performed By: #### 2 160588, 3696509, 8286599, 2695395, 6868138, 29831120 #### [facility] [address] [place] [address] Urea nitrogen/Creatinine [Mass ratio] 15 No Units Normal 10-20 [facility] Comment on above: Performed By: #### 2 441588, 8395981, 1939512, 0647896, 7873839, 30060675 #### [facility] [address] [place] [address] Anion gap [Moles/Vol] 9 mmol/L Normal 6-16 [facility] Comment on above: Performed By: #### 2 317275, 7271991, 6754827, 2883841, 7730507, 09041771 #### [facility] [address] [place] [address] Calcium [Mass/Vol] 8.7 mg/dL Low 8.9-11.1 [facility] Comment on above: Performed By: #### 2 435665, 1481156, 1363293, 3044868, 8633663, 83481434 #### [facility] [address] [place] [address] Chloride [Moles/Vol] 108 mmol/L Normal 101-111 [facility] Comment on above: Performed By: #### 2 666473, 9989596, 8191104, 7952722, 9514485, 13098850 #### [facility] [address] [place] [address] CO2 [Moles/Vol] 21 mmol/L Normal 21-31 [facility] Comment on above: Performed By: #### 2 150482, 7670044, 6050310, 2188229, 2533799, 83015805 #### [facility] [address] [place] [address] Glucose [Mass/Vol] 97 mg/dL Normal 55-199 [facility] Comment on above: Result Comment: If t his glucose result represents a fasting glucose, interpretation should refer to the following reference range: 55-99 mg/dL Performed By: #### 2 069319, 3272693, 4334441, 2066763, 7338513, 67239496 #### [facility] [address] [place] [address] Potassium [Moles/Vol] 3.5 mmol/L Normal 3.5-5.3 [facility] Comment on above: Performed By: #### 2 806975, 6797161, 3648776, 9402000, 0968966, 69800144 #### [facility] [address] [place] [address] Sodium [Moles/Vol] 134 mmol/L Low 135-145 [facility] Comment on above: Performed By: #### 2 031539, 8313131, 8954027, 8471492, 8491192, 02218237 #### [facility] [address] [place] [address] BhCG Quanton 03-10-2023 [place] [address] m[IU]/mL High 1-[address] [facility] Comment on above: Result Comment: GEST ATIONAL AGE HCG RANGE (mIU/mL) NON- <1-3 0.2-1 WEEKS 5-50 1-2 WEEKS 50-500 2-3 WEEKS 100-5,000 3-4 WEEKS 500-10,000 4-5 WEEKS 1,000-50,000 5-6 WEEKS 10,000-100,000 6-8 WEEKS 15,000-200,000 8-12 WEEKS 10,000-100,000 Performed By: #### 2 026562, 4468924, 2294898, 0736263, 8784166, 07028974 #### [facility] [address] [place] [address] CBC w/ Auto Diffon 3 Erythrocyte distribution width (RBC) [Ratio] 15.9 % High 10.9-14.2 [facility] Comment on above: Performed By: #### 2 885815, 6292059, 7899551, 4634708, 3030465, 54724561 #### [facility] [address] [place] [address] Hematocrit (Bld) [Volume fraction] 34.6 % Normal 34.0-46.0 [facility] Comment on above: Performed By: #### 2 662367, 5701490, 4289972, 9586202, 1998082, 10006858 #### [facility] [address] [place] [address] Hemoglobin (Bld) [Mass/Vol] 11.2 g/dL Low 12.0-16.0 [facility] Comment on above: Performed By: #### 2 908455, 2098997, 9419544, 3554217, 5526566, 00747795 #### [facility] [address] [place], [place] [address] MCH (RBC) [Entitic mass] 25.6 pg Low 27.0-34.0 [facility] Comment on above: Performed By: #### 2 105662, 0332619, 3962316, 7020645, 3114541, 99488634 #### [facility] [address] [place] [address] MCHC (RBC) [Mass/Vol] 32.4 g/dL Normal 31.4-36.0 [facility] Comment on above: Performed By: #### 2 130927, 5341698, 3282895, 6113286, 0725060, 76424462 #### [facility] [address] [place], [place] [address] MCV (RBC) [Entitic vol] 78.8 fL Low 80.0-100.0 [facility] Comment on above: Performed By: #### 2 117438, 8083365, 9214739, 8937954, 3352662, 32077710 #### [facility] [address] [place] [id number] Platelet mean volume (Bld) [Entitic vol] 7.9 fL Normal 6.4-10.8 [facility] Comment on above: Performed By: #### 2 141560, 9882627, 2401890, 8456208, 0442690, [id number] #### [facility] [address] [place] [address] Platelets (Bld) [#/Vol] 245.0 E9/L Normal 150.0-500.0 [facility] Comment on above: Performed By: #### 2 349744, 0862972, 5735439, 2886932, 0312405, 71816070 #### [facility] [address] [place] [address] RBC (Bld) [#/Vol] 4.4 E12/L Normal 4.3-5.9 [facility] Comment on above: Performed By: #### 2 820616, 8018310, 9477304, 2910208, 8623399, 21710759 #### [facility] [address] [place] [address] WBC corrected for nucl RBC Auto (Bld) [#/Vol] 4.9 E9/L Normal 4.0-11.0 [facility] Comment on above: Performed By: #### 2 185479, 1101141, 1175470, 8021911, 4739510, 90456057 #### [facility] [address] [place] [address] CHEMISTRYOrdered By: SYSTEM SYSTEM on 03-10-2023 Albumin [Mass/Vol] 3.9 g/dL Normal 3.3 - 5.0 gm/dL [facility] Albumin/Globulin [Mass ratio] 1.0 {ratio} Low [...] mg/dL Normal 0.0 - 1 .1 mg/dL [facility] Bilirubin.direct [Mass/Vol] 0.1 mg/dL Normal 0.1 - 0.4 mg/dL [facility] Bilirubin.indirect [Mass or moles/Vol] 0.4 mg/dL Normal 0.1 - 0.9 mg/dL [facility] Calcium [Mass/Vol] 8.7 mg/dL Low 8.9 - 11. 1 mg/dL [facility] Chloride [Moles/Vol] 108 mmol/L Normal 101 - 1 11 mmol/L [facility] CO2 [Moles/Vol] 21 mmol/L Normal 21 - 31 mmol/L [facility] Creatinine [Mass/Vol] 0.6 mg/dL Normal 0.5 - 1.3 mg/dL [facility] GFR/1.73 sq M.predicted among non-blacks MDRD (S/P/Bld) [Vol rate/Area] 126 mL/min/1.73 m2 Normal >=59mL/min/1.7 3 m2 [facility] Chem S Globulin (S) [Mass/Vol] 4.1 g/dL High 1.4 - 4.0 gm/dL [facility] Glucose [Mass/Vol] 97 mg/dL Normal 55 - 199 mg/dL [place] [address] m[IU]/mL High 1 - 3 mIU/mL FT [...] mg/dL [facility] Urea nitrogen/Creatinine [Mass ratio] 15 mg/mg Normal 10 - 20 [facility] Consent for Treatmenton 02-21 Consent for Treatment [id number] Normal [facility] ED Clinical Summaryon 2022 ED Clinical Summary [address] [address] ED Clinical Summary Person Information Name: ROLA AGUILAR [place] Age: 27 Years : 1995 Sex: Female Language: South African PCP: NONE, XXXX Marital Status: Single Phone: [phone] Visit Id: Visit Reason: Abdominal pain; ABD [...] 03/10/2023 21:34:08 03/10/2023 21:34:08 03/10/2023 21:34:08 ADDRESS: [address] [place] [address] DR DAO [place] [id number] PHYS DOC NOTES: MEDICAL INFORMATION: Prescriptions Given: Medications to Continue with No Changes Other Medications acetaminophen-hydroco done ([place] 325 mg-5 mg oral tablet) 1 Tablets By Mouth every 6 hours as needed for pain. Refills: 0. acetaminophen-hydroco done ([place] 325 mg-5 mg oral tablet) 1 Tablets [...] EDUCATION INFORMATION: Instructions: First Trimester of , Eclq-ik-Hvtm; Crohn's Disease; Abdominal Pain, Adult, Vkff-jk-Yvjs Follow up: With: Address: When: Anoop Lopez [address] [place] [address], [place] [address], [place] [address] [facility] (1) In 3 days 03/13/2023 Comments: Follow-up with Dr. Lopez for further evaluation of your . With: Address: When: Vanessa Carver [address] [place] [address] [facility] (1) In 3 days 03/13/2023 Co (more content not included)... Normal [facility] ED Patient Education Noteon 03-10-2023 ED [...] these instructions at home: Medicines ? Take jeyn-sig-jkpapmj and prescription medicines only as told by [...] belly pain for any changes. ? Take qgde-bhs-sovjlwe and prescription medicines only as told by [...] provider. Document Revised: 01/18/2020 Document Reviewed: 01/18/2020 [employer] Patient Education ? 2022 [employer]. Immunology Crohn's Disease Crohn's disease is a [...] to w (more content not included)... Normal [facility] ED Patient Summaryon 023 ED Patient Summary [place] [id number] Patient Discharge Instructions Person Information Name: ROLA AGUILAR Age: 27 Years Arrival Date: 03/10/2023 17:22:42 Discharge Diagnosis: Hx of Crohn's disease; Lower abdominal pain; Primary Care Physician: NONE, XXXX Provider Information Primary Provider: Elliot Macias DO Advanced Registered Nurse Maternity:None The exam and treatment you received in the Emergency Department were for an urgent problem and are not intended as complete care. It is important that you follow up with a doctor, nurse practitioner, or physician?s housekeeping assistant for ongoing care. If your symptoms [...] Follow-up Instructions: With: Address: When: Anoop Lopez [address] [place] [address], [place] [id number] [facility] (1) In 3 days 03/13/2023 Comments: Follow-up with Dr. Lopez for further evaluation of your . With: Address: When: Vanessa Carver [address] [place] [address] [facility] (1) In 3 days 03/13/2023 Comments: Follow-up [...] Patient Education Materials: First Trimester of , Rjnw-vd-Lqfc; Crohn's Disease; Abdominal Pain, Adult, Aeon-nk-Ykqk A MESSAGE TO ALL PATIENTS REGARDING OPIOIDS PRESCRIPTION OPIOIDS: WHAT YOU NEED TO KNOW Prescription opioids can be used to help relieve hqamwhfp-qf-bokbrf pain and are often prescribed following a [...] unused p (more content not included)... Normal [facility] HEMATOLOGYOrdered By: SYSTEM SYSTEM on 03-10-2023 [...] gm/dL [facility] HemeAutoSS MCV (RBC) [Entitic vol] 78.8 fL Low 80.0 - 100.0 fL [facility] HemeAutoSS Platelet mean volume (Bld) [Entitic vol] 7.9 fL Normal 6.4 - 10.8 fL [facility] HemeAutoSS Platelets (Bld) [#/Vol] 245.0 E9/L Normal 150.0 - 500.0 E9/L [facility] HemeAutoSS RBC (Bld) [#/Vol] 4.4 E12/L Normal 4.3 - 5.9 E12/L [facility] HemeAutoSS WBC corrected for nucl RBC Auto (Bld) [#/Vol] 4.9 E9/L Normal 4.0 - 11.0 E9/L [facility] HemeAutoSS Hep Func Panelon 03-10-2023 Albumin [Mass/Vol] 3.9 g/dL Normal 3.3-5.0 [facility] Comment on above: Performed By: #### 2 749117, 9591232, 5429989, 9087834, 6695935, 91851983 #### [facility] [address] [place] [address] Albumin/Globulin (S) [Mass conc ratio] 1.0 Low 1.1-2.2 [facility] Comment on above: Performed By: #### 2 121226, 7241411, 5032860, 8804670, 4985539, 87356742 #### [facility] [address] [place] [address] ALP [Catalytic activity/Vol] 66 Int._Unit/L Normal 21-98 [facility] Comment on above: Performed By: #### 2 544400, 5804478, 1011564, 7154522, 0853561, 18616473 #### [facility] [address] [place] [address] ALT No additional P-5'-P [Catalytic activity/Vol] 26 Int._Unit/L Normal 6-46 [facility] Comment on above: Performed By: #### 2 478862, 1589956, 6429261, 6483781, 2782913, 45808284 #### [facility] [address] [place] [address] AST [Catalytic activity/Vol] 24 Int._Unit/L Normal 5-43 [facility] Comment on above: Performed By: #### 2 629422, 4209835, 9571146, 9336710, 0258723, 91036605 #### [facility] [address] [place] [address] Bilirubin [Mass/Vol] 0.5 mg/dL Normal 0.0-1.1 [facility] Comment on above: Performed By: #### 2 410804, 8016360, 2050379, 3587590, 4902192, 88926933 #### [facility] [address] [place] [address] Bilirubin.direct [Mass/Vol] 0.1 mg/dL Normal 0.1-0.4 [facility] Comment on above: Performed By: #### 2 662616, 2873554, 2734158, 1542139, 0162862, 62226751 #### [facility] [address] [place] [address] Bilirubin.indirect [Mass or moles/Vol] 0.4 mg/dL Normal 0.1-0.9 [facility] Comment on above: Performed By: #### 2 758455, 3503659, 1433007, 6539014, 2815614, 35342883 #### [facility] [address] [place] [address] Globulin (S) [Mass/Vol] 4.1 g/dL High 1.4-4.0 [facility] Comment on above: Performed By: #### 2 249436, 6988930, 0668366, 7112845, 6977058, 25732861 #### [facility] [address] [place] [address] Protein [Mass/Vol] 8.0 g/dL High 6.0-7.8 [facility] Comment on above: Performed By: #### 2 816173, 2578802, 2437675, 3619921, 6734599, 71481416 #### [facility] [address] [place] [address] Lipase Levelon 03-10-2023 Lipase [Catalytic activity/Vol] 59 U/L High 13-58 [facility] Comment on above: Performed By: #### 2 664050, 9092068, 9712337, 2750074, 8738909, 98565698 #### [facility] [address] [place] [address] SEROLOGYOrdered By: Rakel meadows on 03-10-2023 Beta hCG Ql Positive (03/10/23 5:40 PM) Normal [facility] Man Sero UA With Cult Reflexon 2022 Bacteria LM Ql (Urine sed) 1+ /HPF Abnormal Trace [facility] Comment on above: Performed By: #### 2 990323, 5258044, 6463083, 6298568, 7249674, 28385014 #### [facility] [address] [place] [address] Crystals LM Ql (Urine sed) Present Normal [facility] Comment on above: Performed By: #### 2 166752, 0715845, 4172910, 6288542, 0253060, 85898112 #### [facility] [address] [place] [id number] Epithelial cells.squamous LM.HPF (Urine sed) [#/Area] 5-8 Normal 0-2 [facility] Comment on above: Performed By: #### 2 015130, 2750788, 7383539, 7319013, 2348849, 11348427 #### [facility] [address] [place] [address] [place].plasma/[place] .RBC (Bld) [Mass ratio] 4-20 Normal 0-3 [facility] Comment on above: Performed By: #### 2 802043, 6812076, 9193996, 0662775, 8269646, 55389784 #### [facility] [address] [place] [address] Mucus Ql (Urine sed) TRACE Normal [facility] Comment on above: Performed By: #### 2 078031, 6219324, 7473551, 9563128, 4180117, 89787233 #### [facility] [address] [place] [address] WBC LM.HPF (Urine sed) [#/Area] 6-15 Abnormal 0-5 [facility] Comment on above: Performed By: #### 2 518620, 4531087, 6457207, 9974186, 6526060, 97283710 #### [facility] [address] [place] [address] Bilirubin Ql (U) Negative Normal Negative [facility] Comment on above: Performed By: #### 2 514761, 3858076, 0135995, 3344474, 5933225, 66007244 #### [facility] [address] [place] [address] Clarity (U) SL CLOUDY Abnormal Clear [facility] Comment on above: Performed By: #### 2 073069, 1431053, 4464128, 7090747, 4130162, 00285911 #### [facility] [address] [place] [address] Color (U) YELLOW Normal Yellow [facility] Comment on above: Performed By: #### 2 944837, 3774539, 8251692, 8701925, 5715696, 99391178 #### [facility] [address] [place] [address] Glucose Test strip (U) [Mass/Vol] Negative Normal Negative [facility] Comment on above: Performed By: #### 2 251073, 9955242, 5002359, 7473195, 4057683, 75328139 #### [facility] [address] [place] [address] Hemoglobin Ql (U) Negative Normal Negative [facility] Comment on above: Performed By: #### 2 681711, 2373120, 6115844, 2983425, 7188946, 69369585 #### [facility] [address] [place] [address] Ketones (U) [Mass/Vol] Negative Normal Negative [facility] Comment on above: Performed By: #### 2 373617, 5193010, 7766621, 0106898, 6090610, 72615283 #### [facility] [address] [place] [address] Nitrite Ql (U) Negative Normal Negative [facility] Comment on above: Performed By: #### 2 264367, 7242099, 0122504, 5359146, 4920365, 78921289 #### [facility] [address] [place] [address] pH (U) 6.0 [pH] Invalid Interpretation Code 5.0-9.0 [facility] Comment on above: Performed By: #### 2 215890, 5562847, 2228391, 9572692, 5244175, 08410521 #### [facility] [address] [place] [address] Protein (U) [Mass/Vol] Negative Normal Negative [facility] Comment on above: Performed By: #### 2 959546, 2143392, 3581334, 4732783, 2727472, 55626300 #### [facility] [address] [place] [address] Specific gravity (U) [Rel density] 1.020 Invalid Interpretation Code 1.005-1.030 [facility] Comment on above: Performed By: #### 2 456442, 6753906, 4436606, 2379205, 4708438, 53014794 #### [facility] [address] [place] [address] Type of Urine collection method Clean Catch Normal [facility] Comment on above: Performed By: #### 2 207258, 9846211, 0768999, 1342968, 7915003, 92934985 #### [facility] [address] [place] [address] Urobilinogen Qn (U) 0.2 {Keyla'U}/dL Normal 0.0-1.0 [facility] Comment on above: Performed By: #### 2 466491, 8962569, 2478471, 8199784, 1064338, 47131459 #### [facility] [address] [place] [address] WBC Auto Ql (U) 2+ Abnormal Negative [facility] Comment on above: Performed By: #### 2 439705, 0938531, 7808505, 7906552, 0918077, 08198334 #### [facility] [address] [place] [address] URINALYSISOrdered By: Rakel Garrison on 03-10-2023 Bacteria [...] PM) Normal Negative [facility] UA Auto SS [place].plasma/[place] .RBC (Bld) [Mass ratio] 4-20 /HPF Normal [...] [facility] UA Auto SS Urobilinogen Qn (U) 0.0835245 {Keyla'U}/dL Normal 0.0 - 1.0 EU/dL FT UA Auto SS WBC Auto Ql (U) 2+ *ABN* (03/10/23 7:36 PM) Invalid Interpretation Code Negative [facility] UA Auto SS WBC LM.HPF (Urine sed) [#/Area] 6-15 /HPF Invalid Interpretation Code 0-5/HPF [facility] UA Auto SS eGFRon 03-10-2023 GFR/1.73 sq M.predicted among non-blacks MDRD (S/P/Bld) [Vol rate/Area] 126 mL/min/1.73 m2 Normal >=59 [facility] Comment on above: Order Comment: Order Added by Discern Expert. Result Comment: Bean Weigher sammie kidney disease could be indicated at eGFR's of less than 60 mL/min/1.73m2. Kidney failure is indicated at less than 15 mL/min/1.73m2. Performed By: #### 2 465218, 3819133, 2845246, 4166073, 7210456, 14808578 #### [facility] [address] [place] [address] CHEMISTRYOrdered By: SYSTEM SYSTEM on 01-25-2023 Albumin [...] 22 [iU]/d Normal 5 - 43 Int._Unit/L [facility] Bilirubin [Mass/Vol] 0.6 mg/dL Normal 0.0 - 1 .1 mg/dL [facility] Bilirubin.direct [Mass/Vol] mg/dL Normal 0.1 - 0.4 mg/dL [facility] Bilirubin.indirect [Mass or moles/Vol] Unable to Calculate mg/dL Invalid Interpretation Code 0.1 - 0.9 mg/dL [facility] Calcium [Mass/Vol] 8.4 mg/dL Low 8.9 - 11. 1 mg/dL [facility] Chloride [Moles/Vol] 105 mmol/L Normal 101 - 1 11 mmol/L [facility] CO2 [Moles/Vol] 20 mmol/L Low 21 - 31 mmol/L [facility] Creatinine [Mass/Vol] 1.1 mg/dL Normal 0.5 - 1.3 mg/dL [facility] GFR/1.73 sq M.predicted among non-blacks MDRD (S/P/Bld) [Vol rate/Area] 71 mL/min/1.73 m2 Normal >=59mL/min/1.7 3 m2 [facility] Chem S Globulin (S) [Mass/Vol] 3.9 g/dL Normal 1.4 - 4.0 gm/dL [facility] Glucose [Mass/Vol] 110 mg/dL Normal 55 - 199 mg/dL [facility] Lipase [Catalytic activity/Vol] 70 U/L High 13 - 58 unit/L [facility] Potassium [Moles/Vol] 3.5 mmol/L Normal 3.5 - 5.3 mmol/L [facility] Protein [Mass/Vol] 7.6 g/dL Normal 6.0 - 7.8 gm/dL [facility] Sodium [Moles/Vol] 134 mmol/L Low 135 - 145 mmol/L [facility] Urea nitrogen [Mass/Vol] 16 mg/dL Normal 5 - 21 mg/dL [facility] Urea nitrogen/Creatinine [Mass ratio] 14 mg/mg Normal 10 - 20 [facility] HEMATOLOGYOrdered By: SYSTEM SYSTEM on 01-25-2023 [...] - 11.0 E9/L [facility] SEROLOGYOrdered By: Delfina Thapa on 01-25-2023 Beta hCG Ql Negative (01/25/23 9:28 PM) Normal [facility] Man Sero URINALYSISOrdered By: Abelino Thapa on [...] PM) Normal Negative [facility] UA Auto SS [place].plasma/[place] .RBC (Bld) [Mass ratio] 0-3 /HPF Normal [...] [facility] UA Auto SS Urobilinogen Qn (U) 0.6664037 {Keyla'U}/dL Normal 0.0 - 1.0 EU/dL [facility] [...] rate/Area] mL/min/1.73 m2 Normal >=59mL/min/1.7 3 m2 [facility] Chem S Globulin (S) [Mass/Vol] 4.2 g/dL [...] ratio] 10 mg/mg Normal 10 - 20 [facility] COAGULATIONOrdered By: Makayla Flynn on 01-13-2023 aPTT Coag (PPP) [Time] 29.6 s Normal 25.1 - 36.5 second(s) FT Auto Coag INR Coag (PPP) [Relative time] [...] - 7.5 E9/L [facility] HEMATOLOGYOrdered By: Martah Schultz on 01-13-2023 Erythrocyte distribution width (RBC) [...] 310.0 E9/L Normal 150.0 - 500.0 E9/L FT [...] PM) Normal Negative [facility] UA Auto SS [place].plasma/[place] .RBC (Bld) [Mass ratio] 0-3 /HPF Normal [...] Desc Clean Catch (01/13/23 3:23 PM) Normal [facility] UA Auto SS Urobilinogen Qn (U) 0.1314305 {Keyla'U}/dL Normal 0.0 - 1.0 EU/dL [facility] UA Auto SS WBC Auto Ql (U) 1+ *ABN* (01/13/23 3:23 PM) Invalid Interpretation Code Negative [facility] UA Auto SS WBC LM.HPF (Urine sed) [#/Area] 6-15 /HPF Invalid Interpretation Code 0-5/HPF [facility] UA Auto SS CHEMISTRYOrdered By: SYSTEM SYSTEM [...] 1 11 mmol/L [facility] CO2 [Moles/Vol] 26 mmol/L Normal 21 - 31 mmol/L [facility] Creatinine [Mass/Vol] 0.7 mg/dL Normal 0.5 - 1.3 mg/dL [facility] GFR/1.73 sq M.predicted among blacks MDRD (S/P/Bld) [Vol rate/Area] mL/min/1.73 m2 Normal >=59mL/min/1.7 3 m2 FT Chem S GFR/1.73 sq M.predicted among non-blacks MDRD (S/P/Bld) [Vol rate/Area] mL/min/1.73 m2 Normal >=59mL/min/1.7 3 m2 [facility] Chem S Globulin (S) [Mass/Vol] 4.3 g/dL [...] 10 mg/dL Normal 5 - 21 mg/dL [facility] [...] hCG Ql Negative (01/09/23 1:22 PM) Normal [facility] Man Sero URINALYSISOrdered By: Chaz Manley on [...] PM) Normal Negative [facility] UA Auto SS [place].plasma/[place] .RBC (Bld) [Mass ratio] 0-3 /HPF Normal [...] [facility] UA Auto SS Urobilinogen Qn (U) 0.7470633 {Keyla'U}/dL Normal 0.0 - 1.0 EU/dL [facility] UA Auto SS WBC Auto Ql (U) Trace *ABN* (01/09/23 3:03 PM) Invalid Interpretation Code Negative [facility] UA Auto SS WBC LM.HPF (Urine sed) [#/Area] 0-5 /HPF Normal 0-5/HPF [facility] UA Auto SS CBC with Auto Differentialon 12-24-2022 Absolute Eos # 0.20 [facility] Absolute Lymph # 0.70 Low [facility] Absolute [place] # 0.40 [facility] Basophils (Bld) [#/Vol] 0.00 10*3/uL [facility] Basophils/100 WBC (Bld) 0 % 0 - 2 % [facility] Differential Type YES [facility] Eosinophils/100 WBC (Bld) 2 % 0 - 5 % [facility] Hematocrit (Bld) [Volume fraction] 36.2 % 36 - 46 % [facility] Hemoglobin (Bld) [Mass/Vol] 11.9 g/dL Low 12.0 - 16.0 g/dL [facility] Interpretation and review of laboratory results Abnormal [facility] Lymphocytes/100 WBC (Bld) 9 % Low 15 - 40 % [facility] MCH (RBC) [Entitic mass] 26.5 pg 26 - 34 pg [facility] MCHC (RBC) [Mass/Vol] 32.9 g/dL 31 - 37 g/dL [facility] MCV (RBC) [Entitic vol] 80.6 fL 80 - 100 fL [facility] Monocytes/100 WBC (Bld) 5 % 4 - 8 % [facility] Platelet distribution width (Bld) [Ratio] 15.3 % High 12.1 - 15.2 % [facility] Platelets (Bld) [#/Vol] 339 10*3/uL [facility] RBC (Bld) [#/Vol] 4.49 10*6/uL 4.0 - 5.2 m/uL [facility] Segmented neutrophils/100 WBC (Bld) 84 % High 47 - 75 % [facility] Segs Absolute 6.50 [facility] WBC (Bld) [#/Vol] 7.7 10*3/uL [facility] CMPon 12-24-2022 Albumin [Mass/Vol] 4 g/dL 3.5 - 5.2 g/dL [facility] ALP [Catalytic activity/Vol] 65 U/L 35 - 104 U/L [facility] ALT [Catalytic activity/Vol] 6 U/L 5 - 33 U/L [facility] Anion gap [Moles/Vol] 12 mmol/L 9 - 17 mmol/L [facility] AST [Catalytic activity/Vol] 13 U/L NINF - 32 U/L [facility] Bilirubin [Mass/Vol] 0.3 mg/dL 0.3 - 1 .2 mg/dL [facility] Calcium [Mass/Vol] 9.1 mg/dL 8.6 - 10. 4 mg/dL [facility] Chloride [Moles/Vol] 105 mmol/L 98 - 10 7 mmol/L [facility] CO2 [Moles/Vol] 22 mmol/L 20 - 31 mmol/L [facility] Creatinine [Mass/Vol] 0.63 mg/dL 0.50 - 0.90 mg/dL [facility] GFR/1.73 sq M.predicted MDRD (S/P/Bld) [Vol rate/Area] - PINF [facility] Comment on above: These results are [...] 108 mg/dL High 70 - 99 mg/dL [facility] Interpretation and review of laboratory results Abnormal [facility] Potassium [Moles/Vol] 3.9 mmol/L 3.7 - 5.3 mmol/L [facility] Protein [Mass/Vol] 7.7 g/dL 6.4 - 8.3 g/dL [facility] Sodium [Moles/Vol] 139 mmol/L 135 - 144 mmol/L [facility] Urea nitrogen [Mass/Vol] 10 mg/dL 6 - 20 mg/dL [facility] Urea nitrogen/Creatinine (Bld) [Mass ratio] 16 9 - 20 [facility] ABDOMEN PELVIS W IV CONTR AST Additional Contrast? 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 No acute surgical changes. [facility] EXAMINATION: CT ABDOMEN PELVIS W IV [...] pancreas, gallbladder and liver. No free air. [facility] Ozzy Guidry Jr., MD - 12/24/2022 [...] compared to 2019. No acute surgical changes. [employer] Phone: Radiology Study observation (narrative) [employer] Phone: CT ABDOMEN PELVIS W IV CONTR AST Additional Contrast? NoneOrdered By: Ozzy Guidry on 12-24-2022 [employer] Phone: HCG Qualitative, Serumon hCG Qual Negative NEGATIVE [facility] Comment on above: Specimens with hCG l evels near the threshold of the test (25 mIU/mL) may give a negative or indeterminate result. In such cases, another test should be performed with a new specimen in 48-72 hours. If early is suspected clinically in this setting, correlation with quantitative serum b-hCG level is suggested. [employer] has confirmed the use of plasma for this test. This has not been cleared or approved by the U.S. Food and Drug Administration. The FDA has determined that such clearance is not necessary. [facility] Lactic Acidon 12-24-2022 Lactate (P mesha) [Moles/Vol] 1.2 mmol/L 0.5 - 2.2 mmol/L [facility] Microscopic Urinalysison - [facility] Bacteria, UA 2+ Abnormal None [facility] Epithelial Cells UA 10 TO 20 /HPF [facility] Interpretation and review of laboratory results Abnormal [facility] RBC clumps Auto (Urine sed) [#/Area] 5 TO 10 [facility] WBC, UA 5 TO 10 0 /HPF [facility] Urinalysison 12-24-2022 Bilirubin Urine Negative NEGATIVE [facility] Color, UA Yellow Yellow [facility] Glucose Auto test strip (U) [Mass/Vol] Negative NEGATIVE [facility] Interpretation and review of laboratory results Abnormal [facility] Ketones (U) [Mass/Vol] Negative NEGATIVE [facility] Leukocyte esterase Auto test strip Ql (U) 3+ Abnormal NEGATIVE [facility] Nitrite Auto test strip Ql (U) Negative NEGATIVE [facility] Protein (U) [Mass/Vol] 6.0 mg/dL 5.0 - 8.0 [facility] Protein (U) [Mass/Vol] Negative NEGATIVE [facility] Specific [place], UA 1.015 1.005 - 1.030 B ON [facility] Turbidity UA Clear Clear [facility] Urinalysis Comments [facility] Urine Hgb TRACE Abnormal NEGATIVE [facility] Urobilinogen, Urine Normal Normal [facility] CHEMISTRYOrdered By: SYSTEM SYSTEM on 09-29-2022 Albumin [...] (Urine sed) [#/Area] 0-2 /HPF Normal 0-2/HPF [facility] Aut o SS Glucose Test strip (U) [Mass/Vol] Negative (09/29/22 8:15 PM) Normal Negative [facility] UA Auto SS Hemoglobin Ql (U) 2+ *ABN* (09/29/22 8:15 PM) Invalid Interpretation Code Negative [facility] UA Auto SS Ketones (U) [Mass/Vol] Negative (09/29/22 8:15 PM) Normal Negative [facility] UA Auto SS [place].plasma/[place] .RBC (Bld) [Mass ratio] 0-3 /HPF Normal [...] Desc Clean Catch (09/29/22 8:15 PM) Normal [facility] UA Auto SS Urobilinogen Qn (U) 0.1252415 {Keyla'U}/dL Normal 0.0 - 1.0 EU/dL [facility] Auto SS WBC Auto Ql (U) Negative (09/29/22 8:15 PM) Normal Negative [facility] UA Auto SS WBC LM.HPF (Urine sed) [#/Area] 0-5 /HPF Normal 0-5/HPF [facility] UA Auto SS CHEMISTRYOrdered By: SYSTEM SYSTEM on 05-30-2022 Albumin [Mass/Vol] 4.4 g/dL Normal 3.3 - 5.0 gm/dL [facility] Remisol Albumin/Globulin [Mass ratio] 0.9 {ratio} Low [...] PM) Normal Negative [facility] UA Auto SS [place].plasma/[place] .RBC (Bld) [Mass ratio] 0-3 /HPF Normal [...] Desc Clean Catch (05/30/22 9:39 PM) Normal [facility] UA Auto SS Urobilinogen Qn (U) 0.8808290 {Keyla'U}/dL Normal 0.0 - 1.0 EU/dL [facility] [...] rate/Area] mL/min/1.73 m2 Normal >=59mL/min/1.7 3 m2 [facility] Chem S GFR/1.73 sq M.predicted among non-blacks MDRD (S/P/Bld) [Vol rate/Area] mL/min/1.73 m2 Normal >=59mL/min/1.7 3 m2 [facility] Chem S Globulin (S) [Mass/Vol] 4.1 g/dL [...] - 7.8 gm/dL [facility] Remisol Sodium [Moles/Vol] 132 mmol/L Low 135 [...] 5.7 E9/L Normal 2.0 - 7.5 E9/L [facility] HemeAutoSS HEMATOLOGYOrdered By: Babs singer on 02-27-2022 Erythrocyte distribution width (RBC) [Ratio] 16.8 % High 10.9 - 14.2 % [facility] HemeAutoSS Hematocrit (Bld) [Volume fraction] 37.7 % Normal 34.0 - 46.0 % [facility] HemeAutoSS Hemoglobin (Bld) [Mass/Vol] 11.8 g/dL Low 12.0 - 16.0 gm/dL [facility] HemeAutoSS MCH (RBC) [Entitic mass] 25.3 pg Low 27.0 - 34.0 pg [facility] HemeAutoSS MCHC (RBC) [Mass/Vol] 31.2 g/dL Low 31.4 - 36.0 gm/dL [facility] HemeAutoSS MCV (RBC) [Entitic vol] 80.9 fL Normal 80.0 - 100.0 fL [facility] HemeAutoSS Platelet mean volume (Bld) [Entitic vol] 8.5 fL Normal 6.4 - 10.8 fL [facility] HemeAutoSS Platelets (Bld) [#/Vol] 291.0 E9/L Normal 150.0 - 500.0 E9/L [facility] HemeAutoSS RBC (Bld) [#/Vol] 4.7 E12/L Normal 4.3 - 5.9 E12/L [facility] HemeAutoSS WBC corrected for nucl RBC Auto (Bld) [#/Vol] 6.8 E9/L Normal 4.0 - 11.0 E9/L [facility] HemeAutoSS SEROLOGYOrdered By: Babs gambino on 02-27-2022 HCG.beta subunit (U) [Moles/Vol] Negative Normal [facility] Man Sero URINALYSISOrdered By: Corie Gardiner on [...] PM) Normal Negative [facility] UA Auto SS [place].plasma/[place] .RBC (Bld) [Mass ratio] 0-3 /HPF Normal [...] Desc Clean Catch (02/27/22 9:10 PM) Normal [facility] UA Auto SS Urobilinogen Qn (U) 0.6560828 {Keyla'U}/dL Normal 0.0 - 1.0 EU/dL [facility] UA Auto SS WBC Auto Ql (U) 1+ *ABN* (02/27/22 9:10 PM) Invalid Interpretation Code Negative [facility] UA Auto SS WBC LM.HPF (Urine sed) [#/Area] 0-5 /HPF Normal 0-5/HPF [facility] UA Auto SS CHEMISTRYOrdered By: SYSTEM SYSTEM on 12-18-2021 Troponin I.cardiac [Mass/Vol] pg/mL Low 10.10 - 27.10 pg/mL [facility] Remisol Anion gap [Moles/Vol] 14 mmol/L Normal 6 - 16 mEq/L F C Remisol Calcium [Mass/Vol] 9.1 mg/dL Normal 8.9 - 11. 1 mg/dL [facility] Remisol Chloride [Moles/Vol] 107 mmol/L Normal 101 - 1 11 mmol/L [facility] Remisol CO2 [Moles/Vol] 21 mmol/L Normal 21 - 31 mmol/L [facility] Remisol Creatinine [Mass/Vol] 0.7 mg/dL Normal 0.5 - 1.3 mg/dL [facility] Remisol GFR/1.73 sq M.predicted among blacks MDRD (S/P/Bld) [Vol rate/Area] mL/min/1.73 m2 Normal >=59mL/min/1.7 3 m2 [facility] Chem S GFR/1.73 sq M.predicted among non-blacks MDRD (S/P/Bld) [Vol rate/Area] mL/min/1.73 m2 Normal >=59mL/min/1.7 3 m2 [facility] Chem S Glucose [Mass/Vol] 91 mg/dL Normal 55 - 199 mg/dL [facility] Remisol Potassium [Moles/Vol] 3.3 mmol/L Low 3.5 - 5.3 mmol/L [facility] Remisol Sodium [Moles/Vol] 139 mmol/L Normal 135 - 145 mmol/L [facility] Remisol Troponin I.cardiac [Mass/Vol] 2.60 pg/mL Low 10.10 - 27.10 pg/mL [facility] Remisol Urea nitrogen [Mass/Vol] 6 mg/dL Normal 5 - 21 mg/dL [facility] Remisol Urea nitrogen/Creatinine [Mass ratio] 9 mg/mg Low 10 - 20 [facility] Remisol COAGULATIONOrdered By: Acosta Aguirre on 12-18-2021 aPTT Coag (PPP) [Time] 28.8 s Normal 25.1 - 36.5 second(s) [facility] Auto Coag INR Coag (PPP) [Relative time] [...] 34.5 g/dL Normal 31.4 - 36.0 gm/dL [facility] HemeAutoSS MCV (RBC) [Entitic vol] 79.9 fL Low 80.0 - 100.0 fL [facility] HemeAutoSS Platelet mean volume (Bld) [Entitic vol] 7.9 fL Normal 6.4 - 10.8 fL [facility] HemeAutoSS Platelets (Bld) [#/Vol] 350.0 E9/L Normal 150.0 - 500.0 E9/L [facility] HemeAutoSS RBC (Bld) [#/Vol] 4.5 E12/L Normal 4.3 - 5.9 E12/L [facility] HemeAutoSS WBC corrected for nucl RBC Auto (Bld) [#/Vol] 6.8 E9/L Normal 4.0 - 11.0 E9/L [facility] HemeAutoSS CT ABDOMEN/PELVIS W/ CONTRAS Ton 07-17-2021 [...] evidence of obstruction. MACRO: None Normal [facility] [employer] [facility] [employer] Authentication Interface Message Text Attestation signed by Heather Archuleta MD at 07/17/2021 3:02 PM Teaching Physician Note: I reviewed the resident's documentation and discussed the patient with the resident on the date of this note. I agree with the resident's medical decision making as documented in the resident's note. Heather Archuleta MD DEPARTMENT OF SURGERY CONSULT - ACUTE CARE SURGERY Rola Aguilar [id number] Chief Complaint/Reason for Consultation Stomal Prolapse from [...] her to go to the ED at [facility] on Thursday 07/12. Workup at OSH revealed [...] i (more content not included)... Normal [facility] [employer] [facility] ED Provider Noteson 07-17-20 [employer] Authentication Interface Message Text Sign out from [...] of Jul 17 849 Sun Jul 16, 20211 No leukocytosis or [...] pain. [facility]. She was told she would have it [...] James MD, PGY2 Emergency Medicine Resident Pager: [phone] Normal [facility] LACTATE WITH REPEAT EDon CR LACT 1.2 mmol/L Normal 0.5-2.0 [facility] Comment on above: Performed By: #### L ACTREPEAT #### S [facility] [address] [place] [address], POTASSIUMon 07-17-2021 Potassium [Moles/Vol] 3.6 mmol/L Normal 3.3-5.3 [facility] Comment on above: Performed By: #### K #### [facility] [address] [place] [address], BASIC METABOLIC PANELon 06-24 Anion gap [Moles/Vol] 14 mmol/L Normal 10-20 [facility] Comment on above: Performed By: #### C UDAY, CH8 #### [facility] [address] [place] [address], Calcium [Mass/Vol] 9.4 mg/dL Normal 8.4-10.4 [facility] Comment on above: Performed By: #### C RP, CH8 #### [facility] [address] [place] [address], Chloride [Moles/Vol] 102 mmol/L Normal 97-111 [facility] Comment on above: Performed By: #### C UDAY, CH8 #### [facility] [address] [place] [address], CO2 [Moles/Vol] 24 mmol/L Normal 21-30 [facility] Comment on above: Performed By: #### C UDAY, CH8 #### [facility] [address] [place] [address], Creatinine [Mass/Vol] 0.79 mg/dL Normal 0.50-1.10 [facility] Comment on above: Performed By: #### Lucrecia FRYE, KENNY8 #### [facility] [address] [place] [address], ESTIMATED GFR (CKD-EPI) 104 mL/min/1.73sqm Normal >=60 [facility] Comment on above: Performed By: #### Lucrecia FRYE, KENNY8 #### [facility] [address] [place] [address], Glucose [Mass/Vol] 87 mg/dL Normal 68-110 [facility] Comment on above: Performed By: #### Lucrecia FRYE, KENNY8 #### [facility] [address] [place] [address], Potassium [Moles/Vol] 3.8 mmol/L Normal 3.3-5.3 [facility] Comment on above: Result Comment: Hemo lysis present Performed By: #### Lucrecia FRYE, KENNY8 #### [facility] [address] [place] [address], Sodium [Moles/Vol] 136 mmol/L Normal 135-148 [facility] Comment on above: Performed By: #### Lucrecia FRYE, KENNY8 #### [facility] [address] [place] [address], Urea nitrogen [Mass/Vol] 7 mg/dL Low 8-22 [facility] Comment on above: Performed By: #### Lucrecia FRYE, KENNY8 #### [facility] [address] [place] [address], C-REACTIVE PROTEINon 021 CRP 2.7 mg/dL High <0.8 [facility] Comment on above: Performed By: #### Lucrecia FRYE, KENNY8 #### [facility] [address] [place] [address], CBC WITH DIFFERENTIALon 06-24 Basophils (Bld) [#/Vol] 0.02 10*3/uL Normal 0.00-0.20 [facility] Comment on above: Performed By: #### E SR, CBCDSAT #### [facility] [address], [place], Basophils/100 WBC (Bld) 0.2 % Normal <=1.9 [facility] Comment on above: Performed By: #### E SR, CBCDSAT #### [facility] [address], [place], Eosinophils (Bld) [#/Vol] 0.12 10*3/uL Normal 0.00-0.70 [facility] Comment on above: Performed By: #### E SR, CBCDSAT #### [facility] [address], [place], Eosinophils/100 WBC (Bld) 1.7 % Normal 0.1-4.0 [facility] Comment on above: Performed By: #### E SR, CBCDSAT #### [facility] [address], [place], Erythrocyte distribution width (RBC) [Ratio] 15.2 % High 11.5-14.5 [facility] Comment on above: Performed By: #### E SR, CBCDSAT #### [facility] [address], [place], Hematocrit (Bld) [Volume fraction] 38.1 % Normal 36.0-46.0 [facility] Comment on above: Performed By: #### E SR, CBCDSAT #### [facility] [address], [place], Hemoglobin (Bld) [Mass/Vol] 12.5 g/dL Normal 12.0-15.0 [facility] Comment on above: Performed By: #### E SR, CBCDSAT #### [facility] [address], [place], Lymphocytes (Bld) [#/Vol] 1.11 10*3/uL Normal 1.00-4.80 [facility] Comment on above: Performed By: #### E SR, CBCDSAT #### [facility] [address], [place], Lymphocytes/100 WBC (Bld) 15.2 % Low 24.0-44.0 [facility] Comment on above: Performed By: #### E SR, CBCDSAT #### [facility] [address] [place] [address], MCH (RBC) [Entitic mass] 26.8 pg Normal 26.0-34.0 [facility] Comment on above: Performed By: #### E SR, CBCDSAT #### [facility] [address] [place] [address], MCHC (RBC) [Mass/Vol] 32.7 g/dL Normal 32.0-35.9 [facility] Comment on above: Performed By: #### E SR, CBCDSAT #### [facility] [address] [place] [address], MCV (RBC) [Entitic vol] 82 fL Normal 80-100 [facility] Comment on above: Performed By: #### E SR, CBCDSAT #### [facility] [address] [place] [address], MONOCYTE DISTRIBUTION WIDTH 19 Normal <=20 [facility] Comment on above: Performed By: #### E SR, CBCDSAT #### [facility] [address] [place] [address], Monocytes (Bld) [#/Vol] 0.37 10*3/uL Normal 0.20-1.00 [facility] Comment on above: Performed By: #### E SR, CBCDSAT #### [facility] [address] [place] [address], Monocytes/100 WBC (Bld) 5.1 % Normal 2.0-11.0 [facility] Comment on above: Performed By: #### E SR, CBCDSAT #### [facility] [address] [place] [address], Neutrophils (Bld) [#/Vol] 5.69 10*3/uL Normal 1.50-8.00 [facility] Comment on above: Performed By: #### E SR, CBCDSAT #### [facility] [address] [place] [address], Neutrophils/100 WBC (Bld) 77.9 % High 31.0-76.0 [facility] Comment on above: Performed By: #### E , CBCDSAT #### [facility] [address], [place], Platelet mean volume (Bld) [Entitic vol] 8.3 fL Normal 7.5-11.2 [facility] Comment on above: Performed By: #### Philipp SALINAS, CBCDSAT #### [facility] [address], [place], Platelets (Bld) [#/Vol] 327 10*3/uL Normal 150-400 [facility] Comment on above: Performed By: #### Philipp SALINAS, CBCDSAT #### [facility] [address], [place], RBC (Bld) [#/Vol] 4.66 10*6/uL Normal 4.00-5.20 [facility] Comment on above: Performed By: #### Philipp SALINAS, CBCDSAT #### [facility] [address], [place], WBC (Bld) [#/Vol] 7.3 10*3/uL Normal 4.5-11.5 [facility] Comment on above: Performed By: #### Philipp SALINAS, CBCDSAT #### [facility] [address], [place], ED Provider Noteson 24-20 21 [place] [employer] Authentication Interface Message Text EMERGENCY DEPARTMENT - VISIT NOTE --------- HISTORY OF PRESENT ILLNESS ----- Chief Complaint Patient presents with * Abdominal pain States she has a hernia pushing on her ileostomy that is causing pain. Pt was told to consult surgery. Pt came to the ED due to increased pain. [employer] Operator: not needed - patient preferred language is [place]. The history is provided by the Patient. [...] pain got more severe to come to [facility]. Patient pain never improved and pain got worse today so she came to [facility]. No fever, chills. Has nausea but no [...] 08/2016 PILONIDAL CYST/SINUS EXCISION 06/2016 Ostomy in 2018 Pertinent Social History: Per HPI PHYSICAL EXAM [...] rebound or guarding. Loose stool noted leaking. [place] stoma. prolapsed Musculoskeletal: Right lower leg: No [...] reviewed and incorporated Interpretation of Results: As [facility] Course: as [facility] ED Course as of Jul 17 1812 [...] Abdome (more content not included)... Normal [facility] ERYTHROCYTE SEDIMENTATION RA Chris 07-16-2021 ESR (Bld) [Velocity] 90 mm/h High <=20 [facility] Comment on above: Performed By: #### E SR, CBCDSAT #### S [facility] [address] [place] [address], PROTHROMBIN TIME AND INRon 1 INR Coag (PPP) [Relative time] 1.06 {INR} Normal 0.90-1.10 [facility] Comment on above: Performed By: #### P T #### S [facility] [address] [place] [address], PT Coag (PPP) [Time] 12.0 s Normal 9.7-12.9 [facility] Comment on above: Performed By: #### P T #### S PATH[facility] [address], [place], CBC Auto Differentialon - Basophils (Bld) [#/Vol] 0.10 10*3/uL [facility], [place] Basophils/100 WBC (Bld) 1 % 0 - 2 % [facility], [place] Differential Type YES [facility], [place] Eosinophils (Bld) [#/Vol] 0.10 10*3/uL [place] Eosinophils/100 WBC (Bld) 1 % 0 - 5 % [place] Erythrocyte distribution width (RBC) [Ratio] 14.7 % 12.1 - 15.2 % [place] Hematocrit (Bld) [Volume fraction] 38.2 % 36 - 46 % [place] Hemoglobin (Bld) [Mass/Vol] 12.7 g/dL 12 - 16 g/dL [place] Interpretation and review of laboratory results Abnormal [place] Lymphocytes (Bld) [#/Vol] 0.60 10*3/uL Low [place] Lymphocytes/100 WBC (Bld) 6 % Low 15 - 40 % [place] MCH (RBC) [Entitic mass] 26.7 pg 26 - 34 pg [place] MCHC (RBC) [Mass/Vol] 33.3 g/dL 31 - 37 g/dL [place] MCV (RBC) [Entitic vol] 80.3 fL 80 - 100 fL [place] Monocytes (Bld) [#/Vol] 0.50 10*3/uL [place] Monocytes/100 WBC (Bld) 5 % 4 - 8 % [place] Platelet mean volume (Bld) [Entitic vol] NOT REPORTED 6 - 12 fL [place] Platelets (Bld) [#/Vol] NOT REPORTED [place] Platelets (Bld) [#/Vol] 334 10*3/uL [place] RBC (Bld) [#/Vol] 4.76 10*6/uL 4 - 5.2 m/uL [place] RBC morphology finding Nom (Bld) NOT REPORTED [place] Segmented neutrophils/100 WBC (Bld) 87 % High 47 - 75 % [place] Segs Absolute 7.90 [place] WBC (Bld) [#/Vol] NOT REPORTED per 100 WBC [place] WBC (Bld) [#/Vol] 9.1 10*3/uL [place] WBC Morphology NOT REPORTED [place] Comprehensive Metabolic Pane l w/ Reflex to MGon 08-10-2020 Albumin [Mass/Vol] 4.8 g/dL 3.5 - 5.2 g/dL [place] Albumin/Globulin [Mass ratio] NOT REPORTED [place] ALP [Catalytic activity/Vol] 102 U/L 35 - 104 U/L [place] ALT [Catalytic activity/Vol] 28 U/L 5 - 33 U/L [place] Anion gap [Moles/Vol] 9 mmol/L 9 - 17 mmol/L [place] AST [Catalytic activity/Vol] 21 U/L <32 [place] Bilirubin Ql (U) 0.34 mg/dL 0.3 - 1.2 mg/dL [place] Bun/Cre Ratio 17 [place] Calcium [Mass/Vol] 9.8 mg/dL 8.6 - 10. 4 mg/dL [place] Chloride [Moles/Vol] 106 mmol/L 98 - 10 7 mmol/L [place] CO2 [Moles/Vol] 22 mmol/L 20 - 31 mmol/L [place] Creatinine [Mass/Vol] 0.69 mg/dL 0.5 - 0.9 mg/dL [place] GFR >60 >60 mL/min [place] GFR Non- >60 >60 mL/min [place] GFR/1.73 sq M predicted among non-blacks MDRD (S/P/Bld) [Vol rate/Area] NOT REPORTED [place] GFR/1.73 sq M predicted among non-blacks MDRD (S/P/Bld) [Vol rate/Area] [place] Comment on above: Average GFR for 20-2 9 years old: 116 mL/min/1.73sq m Chronic Kidney Disease: <60 mL/min/1.73sq m Kidney failure: <15 mL/min/1.73sq m eGFR calculated using average adult body mass. Additional eGFR calculator available at: http://www.[employer].com/multiple_crcl_2012.htm Glucose [Mass/Vol] 108 mg/dL High 70 - 99 mg/dL [place] Interpretation and review of laboratory results Abnormal [place] Potassium [Moles/Vol] 3.9 mmol/L 3.7 - 5.3 mmol/L [place] Protein [Mass/Vol] 8.5 g/dL High 6.4 - 8.3 g/dL [place] Sodium [Moles/Vol] 137 mmol/L 135 - 144 mmol/L [place] Urea nitrogen [Mass/Vol] 12 mg/dL 6 - 20 mg/dL [place] HCG Qualitative, Serumon hCG Qual Negative NEGATIVE [place] Comment on above: Specimens with hCG l evels near the threshold of the test (25 mIU/mL) may give a negative or indeterminate result. In such cases, another test should be performed with a new specimen in 48-72 hours. If early is suspected clinically in this setting, correlation with quantitative serum b-hCG level is suggested. [facility] [employer] has confirmed the use of plasma for this test. This has not been cleared or approved by the U.S. Food and Drug Administration. The FDA has determined that such clearance is not necessary. Otheron 08-10-2020 Immature granulocytes (Bld) [#/Vol] NOT REPORTED 0 % [place] CBC Auto Differentialon Basophils (Bld) [#/Vol] 0.00 10*3/uL [place] Basophils/100 WBC (Bld) 0 % 0 - 2 % [place] Differential Type YES [place] Eosinophils (Bld) [#/Vol] 0.10 10*3/uL [place] Eosinophils/100 WBC (Bld) 2 % 0 - 5 % [place] Erythrocyte distribution width (RBC) [Ratio] 13.8 % 12.1 - 15.2 % [place] Hematocrit (Bld) [Volume fraction] 36.6 % 36 - 46 % [place] Hemoglobin (Bld) [Mass/Vol] 12.2 g/dL 12 - 16 g/dL [place] Interpretation and review of laboratory results Abnormal [place] Lymphocytes (Bld) [#/Vol] 1.00 10*3/uL [place] Lymphocytes/100 WBC (Bld) 13 % Low 15 - 40 % [place] MCH (RBC) [Entitic mass] 27.2 pg 26 - 34 pg [place] MCHC (RBC) [Mass/Vol] 33.3 g/dL 31 - 37 g/dL [place] MCV (RBC) [Entitic vol] 81.7 fL 80 - 100 fL [place] Monocytes (Bld) [#/Vol] 0.60 10*3/uL [place] Monocytes/100 WBC (Bld) 8 % 4 - 8 % [place] Platelet mean volume (Bld) [Entitic vol] NOT REPORTED 6 - 12 fL [place] Platelets (Bld) [#/Vol] 276 10*3/uL [place] Platelets (Bld) [#/Vol] NOT REPORTED [place] RBC (Bld) [#/Vol] 4.48 10*6/uL 4 - 5.2 m/uL [place] RBC morphology finding Nom (Bld) NOT REPORTED [place] Segmented neutrophils/100 WBC (Bld) 77 % High 47 - 75 % [place] Segs Absolute 5.70 [place] WBC (Bld) [#/Vol] NOT REPORTED per 100 WBC [place] WBC (Bld) [#/Vol] 7.4 10*3/uL [place] WBC Morphology NOT REPORTED [place] Comprehensive Metabolic Pane chloe 03-01-2020 Albumin [Mass/Vol] 4.1 g/dL 3.5 - 5.2 g/dL [place] Albumin/Globulin [Mass ratio] NOT REPORTED [place] ALP [Catalytic activity/Vol] 89 U/L 35 - 104 U/L [place] ALT [Catalytic activity/Vol] 22 U/L 5 - 33 U/L [place] Anion gap [Moles/Vol] 11 mmol/L 9 - 17 mmol/L [place] AST [Catalytic activity/Vol] 19 U/L <32 [place] Bilirubin Ql (U) 0.32 mg/dL 0.3 - 1.2 mg/dL [place] Bun/Cre Ratio 15 [place] Calcium [Mass/Vol] 9.3 mg/dL 8.6 - 10. 4 mg/dL [place] Chloride [Moles/Vol] 107 mmol/L 98 - 10 7 mmol/L [place] CO2 [Moles/Vol] 22 mmol/L 20 - 31 mmol/L [place] Creatinine [Mass/Vol] 0.72 mg/dL 0.5 - 0.9 mg/dL [place] GFR >60 >60 mL/min [place] GFR Non- >60 >60 mL/min [place] GFR/1.73 sq M predicted among non-blacks MDRD (S/P/Bld) [Vol rate/Area] [place] Comment on above: Average GFR for 20-2 9 years old: 116 mL/min/1.73sq m Chronic Kidney Disease: <60 mL/min/1.73sq m Kidney failure: <15 mL/min/1.73sq m eGFR calculated using average adult body mass. Additional eGFR calculator available at: http://www.[employer] [place]/multiple_crcl_2012.htm GFR/1.73 sq M predicted among non-blacks MDRD (S/P/Bld) [Vol rate/Area] NOT REPORTED [place], [place] Glucose [Mass/Vol] 110 mg/dL High 70 - 99 mg/dL [place], [place] Interpretation and review of laboratory results Abnormal [place] Potassium [Moles/Vol] 3.6 mmol/L Low 3.7 - 5.3 mmol/L [place] Protein [Mass/Vol] 7.9 g/dL 6.4 - 8.3 g/dL [place], [place] Sodium [Moles/Vol] 140 mmol/L 135 - 144 mmol/L [place] Urea nitrogen [Mass/Vol] 11 mg/dL 6 - 20 mg/dL [place] Otheron 03-01-2020 Immature granulocytes (Bld) [#/Vol] NOT REPORTED [place] CBC AUTO DIFFon 07-21-2019 Basophils (Bld) [#/Vol] 0.1 103/ul Normal 0.0-0.1 [facility] Comment on above: Performed By: #### C BC #### [facility] [address] [id number] [place]issy Suzy Basophils/100 WBC (Bld) 0.8 % Normal 0.2-2.0 [facility] Comment on above: Performed By: #### C BC #### [facility] [address] [id number] [place] Suzy Eosinophils (Bld) [#/Vol] 0.4 103/ul Normal 0.0-0.7 [facility] Comment on above: Performed By: #### C BC #### [facility] [address] [place], [place] [id number] [place]issy Suzy Eosinophils/100 WBC (Bld) 5.2 % Normal 0.9-7.0 [facility] Comment on above: Performed By: #### C BC #### [facility] [address] [id number] [place] Suzy Erythrocyte distribution width (RBC) [Ratio] 15.0 % Normal 11.0-15.0 [facility] Comment on above: Performed By: #### C BC #### [facility] [address] [place], [place] [phone] [place]issy Suzy Hematocrit (Bld) [Volume fraction] 41.0 % Normal 36.0-48.0 [facility] Comment on above: Performed By: #### C BC #### [facility] [address] [id number] [place]issy Suzy Hemoglobin (Bld) [Mass/Vol] 13.3 g/dL Normal 12.0-16.0 [facility] Comment on above: Performed By: #### C BC #### [facility] [address] [id number] [place]issy Suzy IG # 0.01 10e3/ul Normal 0.00-0.03 [facility] Comment on above: Performed By: #### C BC #### [facility] [address] [id number] [place]issy Suzy IG % 0.1 % Normal 0.0-0.5 [facility] Comment on above: Performed By: #### C BC #### [facility] [address] [place], [place] [phone] [place]issy Suzy Lymphocytes (Bld) [#/Vol] 1.2 103/ul Normal 1.2-3.8 [facility] Comment on above: Performed By: #### C BC #### [facility] [address] [place], [place] [phone] [place]issy Suzy Lymphocytes/100 WBC (Bld) 15.9 % Critically low 20.5-60.0 [facility] Comment on above: Performed By: #### C BC #### [facility] [address] [place], [place] [phone] [place]issy Suzy MANUAL DIFF REQ NO Normal [facility] Comment on above: Performed By: #### C BC #### [facility] [address] [place], [place] [phone] Crissy Suzy MCH (RBC) [Entitic mass] 27.7 pg Normal 26.7-34.0 [facility] Comment on above: Performed By: #### C BC #### [facility] [address] [place], [place] [phone] Crissy Suzy MCHC (RBC) [Mass/Vol] 32.4 g/dL Normal 29.9-35.2 [facility] Comment on above: Performed By: #### C BC #### [facility] [address] [place], [place] [phone] Crissy Suzy MCV (RBC) [Entitic vol] 85.4 fL Normal 81.0-99.0 [facility] Comment on above: Performed By: #### C BC #### [facility] [address] [place], [place] [address] Crissy Suzy Monocytes (Bld) [#/Vol] 0.4 103/ul Normal 0.3-0.8 [facility] Comment on above: Performed By: #### C BC #### [facility] [address] [place], [place] [address] Crissy Suzy Monocytes/100 WBC (Bld) 5.3 % Normal 1.7-12.0 [facility] Comment on above: Performed By: #### C BC #### [facility] [address] [place], [place] [address] Crissy Suzy Neutrophils (Bld) [#/Vol] 5.4 103/ul Normal 1.4-6.5 [facility] Comment on above: Performed By: #### C BC #### [facility] [address] [place], [place] [address] Crissy Suzy Neutrophils/100 WBC (Bld) 72.7 % Normal 43.0-75.0 [facility] Comment on above: Performed By: #### C BC #### [facility] [address] [place], [place] [address] Crissy Suzy Platelet mean volume (Bld) [Entitic vol] 10.6 fL Normal 9.5-13.5 [facility] Comment on above: Performed By: #### C BC #### [facility] [address] [place], [place] [address] Crissy Suzy Platelets (Bld) [#/Vol] 275 103/ul Normal 150-450 [facility] Comment on above: Performed By: #### C BC #### [facility] [address] [place], [place] [address] [place]issy Suzy RBC (Bld) [#/Vol] 4.80 106/ul Normal 4.20-5.40 [facility] Comment on above: Performed By: #### C BC #### [facility] [address] [place], [place] [address] Crissy Suzy WBC (Bld) [#/Vol] 7.5 103/ul Normal 4.0-11.0 [facility] Comment on above: Performed By: #### C BC #### [facility] [address] [place], [place] [phone] Crissy Suzy ER URINE PROFILEon 9 Bilirubin [Mass/Vol] Negative Normal NEGATIVE [facility] Comment on above: Performed By: #### CHUCKIE KRUEGERRO #### [facility] [address] [place] [address] [place] Su[place] BLOOD SMALL Normal NEGATIVE [facility] Comment on above: Performed By: #### CHUCKIE KRUEGERRO #### [facility] [address] [place] [address] [place]issy Suzy Clarity (U) CLEAR Normal [facility] Comment on above: Performed By: #### CHUCKIE KRUEGERRO #### [facility] [address] [place] [address] Crissy Suzy Color (U) LT. YELLOW Normal YELLOW [facility] Comment on above: Performed By: #### CHUCKIE KRUEGERRO #### [facility] [address] [place] [address] Crissy Suzy ERUAHD A micrscopic examination will be performed if indicated. Normal [facility] Comment on above: Performed By: #### CHUCKIE KRUEGERRO #### [facility] [address] [place] [address] Crissy Suzy Glucose [Mass/Vol] Negative Normal NEGATIVE [facility] Comment on above: Performed By: #### CHUCKIE KRUEGERRO #### [facility] [address] [place] [address] Crissy Suzy Ketones Ql (U) Negative Normal NEGATIVE [facility] Comment on above: Performed By: #### CHUCKIE KRUEGERRO #### [facility] [address] [place] [address] Crissy Suzy Nitrite Ql (U) Negative Normal NEGATIVE [facility] Comment on above: Performed By: #### CHUCKIE KRUEGERRO #### [facility] [address] [place] [address] Crissy Suzy pH (Bld) 5.5 Normal 5-9 [facility] Comment on above: Performed By: #### CHUCKIE KRUEGERRO #### [facility] [address] [place] [address] Crissy Almonte Protein (U) [Mass/Vol] Negative Normal [facility] Comment on above: Performed By: #### FREDERICK KRUEGERICRO #### [facility] [address] [place] [address] Crissy Almonte SPEC GRAVITY >=1.030 Normal 1.005-<=1.025 [facility] Comment on above: Performed By: #### FREDERICK KRUEGERICRO #### [facility] [address] [place] [address] Crissy Almonte UR MICRO IND INDICATED Normal [facility] Comment on above: Performed By: #### FREDERICK KRUEGERICRO #### [facility] [address] [place] [address] Crissy Almonte Urobilinogen Qn (U) 0.2 EU/dl Normal [facility] Comment on above: Performed By: #### FREDERICK KRUEGERICRO #### [facility] [address] [place] [address] Crissy Almonte WBC (Bld) [#/Vol] Negative Normal NEGATIVE [facility] Comment on above: Performed By: #### Philipp BEDOLLA UMICRO #### [facility] [address] [place], [place] [phone] Crissy Almonte LACTATE/LACTIC ACIDon 2018 Lactate [Moles/Vol] 0.9 mmol/L Normal 0.7-2.1 [facility] Comment on above: Performed By: #### L ACT #### [facility] [address] [place] [address] Crissystephania Almonte LIVER PROFILEon 07-21-2019 Albumin [Mass/Vol] 3.9 g/dL Normal 3.5-5.0 [facility] Comment on above: Performed By: #### B MP, LIVER #### [facility] [address] [place], [place] [address] Crissy Suzy Albumin/Globulin [Mass ratio] 0.8 {ratio} Normal [facility] Comment on above: Performed By: #### B MP, LIVER #### [facility] [address] [id number] [place]issy Suzy ALP [Catalytic activity/Vol] 84 U/L Normal 38-126 [facility] Comment on above: Performed By: #### B MP, LIVER #### [facility] [address] [phone] [place]issy Suzy ALT [Catalytic activity/Vol] 30 U/L Normal 9-52 [facility] Comment on above: Performed By: #### B MP, LIVER #### [facility] [address] [place] [address] Crissy Suzy AST [Catalytic activity/Vol] 29 U/L Normal 14-36 [facility] Comment on above: Performed By: #### B MP, LIVER #### [facility] [address] [phone] [place]iss[place] Suzy BILI, CONJUGATED 0.1 mg/dL Normal 0.0-0.3 [facility] Comment on above: Performed By: #### B MP, LIVER #### [facility] [address] [place], [place] [phone] Crissy Suzy Bilirubin Ql (U) 0.3 mg/dL Normal 0.2-1.3 [facility] Comment on above: Performed By: #### B MP, LIVER #### [facility] [address] [place], [place] [phone] Crissy Suzy Globulin (S) [Mass/Vol] 4.6 g/dL Normal [facility] Comment on above: Performed By: #### B MP, LIVER #### [facility] [address] [place], [place] [phone] Crissy Suzy Protein [Mass/Vol] 8.5 g/dL Critically high 6.1-8.2 [facility] Comment on above: Performed By: #### B MP, LIVER #### [facility] [address] [place], [place] [phone] Crissy Suzy PREG HCG QUALon 07-21-2019 , QUAL Negative Normal NEGATIVE [facility] Comment on above: Performed By: #### P REG #### [facility] [address] [place], [place] [phone] Crissy Suzy PROF CHEM 8 (BAS METB)on Anion gap [Moles/Vol] 12.0 mmol/L Normal [facility] Comment on above: Performed By: #### B MP, LIVER #### [facility] [address] [place] [address] Crissy Suzy Calcium [Mass/Vol] 9.1 mg/dL Normal 8.4-10.2 [facility] Comment on above: Performed By: #### B MP, LIVER #### [facility] [address] [place] [address] Crissy Suzy Chloride [Moles/Vol] 101 mmol/L Normal 98-107 [facility] Comment on above: Performed By: #### B MP, LIVER #### [facility] [address] [place] [address] Crissy Suzy CO2 [Moles/Vol] 25.2 mmol/L Normal 22.0-30.0 [facility] Comment on above: Performed By: #### B MP, LIVER #### [facility] [address] [place] [address] Crissy Suzy Creatinine [Mass/Vol] 0.80 mg/dL Normal 0.52-1.04 [facility] Comment on above: Performed By: #### B MP, LIVER #### [facility] [address] [place], [place] [id number] Crissy Suzy EGFR-AF CROATIAN >60 Normal >=60 [facility] Comment on above: Performed By: #### B MP, LIVER #### [facility] [address] [place], [place] [address] Crissy Suzy EGFR-NON AF CROATIAN >60 Normal >=60 [facility] Comment on above: Performed By: #### B MP, LIVER #### [facility] [address] [place], [place] [address] Crissy Suzy Glucose [Mass/Vol] 86 mg/dL Normal 74-106 [facility] Comment on above: Performed By: #### B MP, LIVER #### [facility] [address] [place], [place] [id number] Crissy Suzy Potassium [Moles/Vol] 4.2 mmol/L Normal 3.4-5.0 [facility] Comment on above: Performed By: #### B MP, LIVER #### [facility] [address] [place], [place] [id number] Crissy Suzy Sodium [Moles/Vol] 134 mmol/L Critically low 137-[address] [facility] Comment on above: Performed By: #### B MP, LIVER #### [facility] [address] [place], [place] [id number] Crissy Suzy Urea nitrogen [Mass/Vol] 16.0 mg/dL Normal 7.0-17.0 [facility] Comment on above: Performed By: #### B MP, LIVER #### [facility] [address] [place], [place] [phone] Crissy Suzy Urea nitrogen/Creatinine [Mass ratio] 20.0 mg/mg Normal [facility] Comment on above: Performed By: #### B MP, LIVER #### [facility] [address] [place], [place] [phone] Crissy Suzy URINE MICROSCOPIC ONLYon Bacteria LM.HPF (Urine sed) [#/Area] TRACE Normal NONE SEEN [facility] Comment on above: Performed By: #### CHUCKIE KRUEGERRO #### [facility] [address] [place], [place] [phone] Crissy Suzy CAST NONE SEEN Normal NONE SEEN [facility] Comment on above: Performed By: #### Philipp BEDOLLA UMICRO #### [facility] [address] [place], [place] [id number] Crissy Suzy Crystals LM Nom (Urine sed) NONE SEEN Normal NONE SEEN [facility] Comment on above: Performed By: #### Philipp BEDOLLA UMICRO #### [facility] [address] [place], [place] [id number] Crissy Suzy CULTURE NOT INDICATED Normal [facility] Comment on above: Performed By: #### E GRAEME, CHUCKIERO #### [facility] [address] [place], [place] [address] Crissy Suzy Epithelial cells LM.HPF (Urine sed) [#/Area] RARE Normal [facility] Comment on above: Performed By: #### Philipp BEDOLLA, ALYSSA #### [facility] [address] [place], [place] [address] Crissy Suzy MUCOUS NONE SEEN Normal NONE SEEN [facility] Comment on above: Performed By: #### E GRAEME, CHUCKIERO #### [facility] [address] [place], [place] [address] Crissy Suzy RBC (U) [#/Vol] 2-5 Normal 0-2 [facility] Comment on above: Performed By: #### Philipp BEDOLLA, CHUCKIERO #### [facility] [address] [place], [place] [address] Crissy Suzy WBC (Bld) [#/Vol] NONE SEEN Normal NONE SEEN [facility] Comment on above: Performed By: #### Philipp BEDOLLA, CHUCKIERO #### [facility] [address] [place], [place] [address] Crissy Suzy Vital Signs Date Time Vital Sign Value Performing Clinician Facility 02-19-2025 08:57-0400 Body mass index (BMI) [Ratio] 19.93 kg/m2 Shaq Thakkar MD Work Phone: [facility] 02-19-2025 08:57-0400 Body temperature 98.01 [degF] Shaq Thakkar MD Work Phone: [facility] 02-19-2025 08:57-0400 Body weight 56 kg Shaq Thakkar MD Work Phone: [facility] 02-19-2025 08:57-0400 Diastolic blood pressure 66 mm[Hg] Shaq Thakkar MD Work Phone: [facility] 02-19-2025 08:57-0400 Heart rate 71 /min Shaq Thakkar MD Work Phone: [facility] 02-19-2025 08:57-0400 Systolic blood pressure 106 mm[Hg] Shaq Thakkar MD Work Phone: [facility] 01-21-2025 15:53-0400 Body height 167.6 cm Magdalene REECE Work Phone: [facility] 01-21-2025 15:53-0400 Body mass index (BMI) [Ratio] 17.59 kg/m2 Magdalene Boyle PA Work Phone: [facility] 01-21-2025 15:53-0400 Body weight 49.44 kg Magdalene Boyle PA Work Phone: [facility] 01-21-2025 15:53-0400 Diastolic blood pressure 70 mm[Hg] Magdalene Boyle PA Work Phone: [facility] 01-21-2025 15:53-0400 Heart rate 138 /min Magdalene Boyle PA Work Phone: [facility] 01-21-2025 15:53-0400 Respiratory rate 16 /min Magdalene Boyle PA Work Phone: [facility] 01-21-2025 15:53-0400 SaO2% (BldA) [Mass fraction] 98 % Magdalene REECE Work Phone: [facility] 01-21-2025 15:53-0400 Systolic blood pressure 110 mm[Hg] Magdalene Boyle PA Work Phone: [facility] 01-03-2025 23:30-0400 Heart rate 122 /min Elliot Macias [facility] 01-03-2025 23:30-0400 SaO2% (BldA) [Mass fraction] 100 % Elliot Macias [facility] 01-03-2025 23:30-0400 Diastolic blood pressure 70 mm[Hg] Elliot Macias [facility] 01-03-2025 23:30-0400 Systolic blood pressure 112 mm[Hg] Elliot Macias [facility] 01-03-2025 23:30-0400 Mean blood pressure 84 mm[Hg] Elliot Gilberto [facility] 01-03-2025 23:30-0400 Respiratory rate 18 /min Elliot Gilberto [facility] 01-03-2025 22:01-0400 SaO2% (BldA) [Mass fraction] 99 % Elliot Gilberto [facility] 01-03-2025 22:01-0400 Diastolic blood pressure 72 mm[Hg] Elliot Gilberto [facility] 01-03-2025 22:01-0400 Systolic blood pressure 112 mm[Hg] Elliot Gilberto [facility] 01-03-2025 22:01-0400 Heart rate 125 /min Elliot Gilberto [facility] 01-03-2025 22:01-0400 Mean blood pressure 85 mm[Hg] Elliot Gilberto [facility] 01-03-2025 22:01-0400 Respiratory rate 20 /min Elliot Gilberto [facility] 01-03-2025 21:18-0400 Body temperature 98.24 [degF] Elliot Gilberto [facility] 01-03-2025 21:18-0400 Diastolic blood pressure 84 mm[Hg] Elliot Gilberto [facility] 01-03-2025 21:18-0400 Heart rate 138 /min Elliot Gilberto [facility] 01-03-2025 21:18-0400 Respiratory rate 20 /min Elliot Gilberto [facility] 01-03-2025 21:18-0400 SaO2% (BldA) [Mass fraction] 100 % Elliot Gilberto [facility] 01-03-2025 21:18-0400 Systolic blood pressure 110 mm[Hg] Elliot Macias [facility] 12-30-2024 22:04-0400 SaO2% (BldA) [Mass fraction] 100 % Heriberto Garcia [facility] 12-30-2024 22:04-0400 Heart rate 98 /min Heriberto Garcia [facility] 12-30-2024 22:04-0400 Diastolic blood pressure 92 mm[Hg] Heriberto Garcia [facility] 12-30-2024 22:04-0400 Respiratory rate 18 /min Heriberto Garcia [facility] 12-30-2024 22:04-0400 Systolic blood pressure 119 mm[Hg] Heriberto Garcia [facility] 12-30-2024 20:21-0400 Hourly Rounding Heriberto Garcia [facility] 12-30-2024 20:00-0400 Heart rate 90 /min Heriberto Garcia [facility] 12-30-2024 20:00-0400 SaO2% (BldA) [Mass fraction] 100 % Heriberto Garcia [facility] 12-30-2024 20:00-0400 Diastolic blood pressure 83 mm[Hg] Heriberto Garcia [facility] 12-30-2024 20:00-0400 Respiratory rate 16 /min Heriberto Garcia [facility] 12-30-2024 20:00-0400 Systolic blood pressure 122 mm[Hg] Heriberto Garcia [facility] 12-30-2024 19:19-0400 Hourly Rounding Heriberto Garcia [facility] 12-30-2024 19:18-0400 SaO2% (BldA) [Mass fraction] 100 % Heriberto Cervantes [facility] 12-30-2024 19:18-0400 Heart rate 93 /min Heriberto Cervantes [facility] 12-30-2024 19:18-0400 Diastolic blood pressure 85 mm[Hg] Heriberto Cervantes [facility] 12-30-2024 19:18-0400 Respiratory rate 18 /min Heriberto Cervantes [facility] 12-30-2024 19:18-0400 Systolic blood pressure 111 mm[Hg] Heriberto Cervantes [facility] 12-30-2024 18:39-0400 Hourly Rounding Heriberto Cervantes [facility] 12-30-2024 17:01-0400 Body temperature 98.06 [degF] Heriberto Cervantes [facility] 12-30-2024 17:01-0400 Heart rate 108 /min Heriberto Cervantes [facility] 12-25-2024 20:45-0400 Diastolic blood pressure 82 mm[Hg] [facility] 12-25-2024 20:45-0400 SaO2% (BldA) [Mass fraction] 99 % Alex [facility]arios MD [facility] 12-25-2024 20:45-0400 Systolic blood pressure 110 mm[Hg] Alex [facility]arios MD [facility] Phone[facility] 12-25-2024 19:56-0400 Respiratory rate 18 /min Alex [facility]arios MD [facility] [employer] 12-25-2024 19:55-0400 Body height 167.6 cm Alex Larios MD Work Phone: [employer] 12-25-2024 19:55-0400 Body mass index (BMI) [Ratio] 18.72 kg/m2 Alex Larios MD Work Phone: [employer] 12-25-2024 19:55-0400 Body weight 52.62 kg Alex Larios MD Work Phone: [facility] [employer] 12-25-2024 19:51-0400 Body temperature 98.2 [degF] Alex Larios MD Work Phone: [employer] 12-25-2024 19:51-0400 Heart rate 115 /min Alex Larios MD Work Phone: [facility] [employer] 12-24-2024 07:48-0400 Body height 167.6 cm Pacc 1 Work Phone: [facility] 12-24-2024 07:48-0400 Body mass index (BMI) [Ratio] 19.21 kg/m2 Pacc 1 Work Phone: [facility] 12-24-2024 07:48-0400 Body temperature 98.1 [degF] Pacc 1 Work Phone: [facility] 12-24-2024 07:48-0400 Body weight 54 kg Pacc 1 Work Phone: [facility] 12-24-2024 07:48-0400 Diastolic blood pressure 74 mm[Hg] Pacc 1 Work Phone: [facility] 12-24-2024 07:48-0400 Heart rate 101 /min Pacc 1 Work Phone: [facility] 12-24-2024 07:48-0400 Respiratory rate 16 /min Pacc 1 Work Phone: [facility] 12-24-2024 07:48-0400 SaO2% (BldA) [Mass fraction] 98 % Pacc 1 Work Phone: [facility] 12-24-2024 07:48-0400 Systolic blood pressure 106 mm[Hg] Pacc 1 Work Phone: [facility] 12-23-2024 15:42-0400 Heart rate 107 /min Harry Devine [facility] 12-23-2024 15:42-0400 SaO2% (BldA) [Mass fraction] 100 % Harry Florese [facility] 12-23-2024 15:30-0400 SaO2% (BldA) [Mass fraction] 100 % Harry Florese [facility] 12-23-2024 15:30-0400 Heart rate 113 /min Harry Florese [facility] 12-23-2024 15:30-0400 Diastolic blood pressure 75 mm[Hg] Harry Florese [facility] 12-23-2024 15:30-0400 Mean blood pressure 87 mm[Hg] Harry Florese [facility] 12-23-2024 15:30-0400 Respiratory rate 17 /min Harry Florese [facility] 12-23-2024 15:30-0400 Systolic blood pressure 111 mm[Hg] Harry Florese [facility] 12-23-2024 14:41-0400 SaO2% (BldA) [Mass fraction] 100 % Harry Ida [facility] 12-23-2024 14:41-0400 Heart rate 108 /min Harry Florese [facility] 12-23-2024 14:41-0400 Diastolic blood pressure 76 mm[Hg] Harry Ida [facility] 12-23-2024 14:41-0400 Systolic blood pressure 109 mm[Hg] Harry Ida [facility] 12-23-2024 14:41-0400 Mean blood pressure 87 mm[Hg] Harry Devine [facility] 12-23-2024 14:41-0400 Respiratory rate 18 /min Harry Devine [facility] 12-23-2024 12:52-0400 Body temperature 98.06 [degF] Harry Devine [facility] 12-23-2024 12:52-0400 Diastolic blood pressure 83 mm[Hg] Harry Devine [facility] 12-23-2024 12:52-0400 Heart rate 122 /min Harry Devine [facility] 12-23-2024 12:52-0400 Respiratory rate 20 /min Harry Devine [facility] 12-23-2024 12:52-0400 Systolic blood pressure 122 mm[Hg] Harry Devine [facility] 12-17-2024 14:46-0400 Diastolic blood pressure 74 mm[Hg] Heriberto Garcia [facility] 12-17-2024 14:46-0400 Heart rate 125 /min Heriberto Garcia [facility] 12-17-2024 14:46-0400 Mean blood pressure 88 mm[Hg] Heriberto Garcia [facility] 12-17-2024 14:46-0400 Respiratory rate 18 /min Heriberto Garcia [facility] 12-17-2024 14:46-0400 SaO2% (BldA) [Mass fraction] 98 % Heriberto Garcia [facility] 12-17-2024 14:46-0400 Systolic blood pressure 116 mm[Hg] Heriberto Garcia [facility] 12-17-2024 13:53-0400 Diastolic blood pressure 77 mm[Hg] Heriberto Garcia [facility] 12-17-2024 13:53-0400 Systolic blood pressure 114 mm[Hg] Heriberto Garcia [facility] 12-17-2024 13:53-0400 Heart rate 116 /min Heriberto Garcia [facility] 12-17-2024 13:53-0400 Mean blood pressure 89 mm[Hg] Heriberto Garcia [facility] 12-17-2024 13:53-0400 Respiratory rate 18 /min Heriberto Garcia [facility] 12-17-2024 13:53-0400 SaO2% (BldA) [Mass fraction] 100 % Heriberto Garcia [facility] 12-17-2024 12:15-0400 Diastolic blood pressure 74 mm[Hg] Heriberto Garcia [facility] 12-17-2024 12:15-0400 Systolic blood pressure 127 mm[Hg] Heriberto Garcia [facility] 12-17-2024 12:15-0400 Heart rate 109 /min Heriberto Garcia [facility] 12-17-2024 12:15-0400 Mean blood pressure 92 mm[Hg] Heriberto Garcia [facility] 12-17-2024 12:15-0400 Respiratory rate 16 /min Heriberto Garcia [facility] 12-17-2024 12:15-0400 SaO2% (BldA) [Mass fraction] 99 % Heriberto Garcia [facility] 12-17-2024 04:30-0400 Hourly Rounding Heriberto Garcia [facility] 12-17-2024 04:30-0400 Promise to Return Heriberto Cervantes [facility] 12-17-2024 00:14-0400 Body temperature 97.7 [degF] Heriberto Cervantes [facility] 12-16-2024 21:47-0400 Body temperature 100.4 [degF] Heriberto Cervantes [facility] 12-16-2024 21:47-0400 Heart rate 138 /min Heriberto Cervantes [facility] 12-15-2024 14:52-0400 Body temperature 97.7 [degF] Elliot Macias [facility] 12-15-2024 14:52-0400 Diastolic blood pressure 83 mm[Hg] Elliot Macias [facility] 12-15-2024 14:52-0400 Heart rate 150 /min Elliot Macias [facility] 12-15-2024 14:52-0400 Respiratory rate 18 /min Elliot Macias [facility] 12-15-2024 14:52-0400 SaO2% (BldA) [Mass fraction] 98 % Elliot Macias [facility] 12-15-2024 14:52-0400 Systolic blood pressure 115 mm[Hg] Elliot Macias [facility] 12-13-2024 02:27-0400 Diastolic blood pressure 69 mm[Hg] [facility] 12-13-2024 02:27-0400 Systolic blood pressure 109 mm[Hg] [facility] 12-13-2024 02:27-0400 Blood Pressure Location [facility] 12-13-2024 02:27-0400 Heart rate 122 /min [facility] 12-13-2024 02:27-0400 Respiratory rate 16 /min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 MD Work Phone: [facility] 08-01-2023 13:46-0500 Systolic blood pressure 110 mm[Hg] Nae Costa MD Work Phone: [facility] 07-04-2023 09:03-0400 Body height 167.6 cm Nae Costa MD Work Phone: [facility] 07-04-2023 09:03-0400 Body weight 88.45 kg Nae Costa MD Work Phone: [facility] 07-04-2023 09:03-0400 Diastolic blood pressure 74 mm[Hg] Nae Costa MD Work Phone: [facility] 07-04-2023 09:03-0400 Heart rate 81 /min Nae Costa MD Work Phone: [facility] 07-04-2023 09:03-0400 Systolic blood pressure 120 mm[Hg] Nae Costa MD Work Phone: [facility] 06-03-2023 14:00-0400 Diastolic blood pressure 61 mm[Hg] [facility] 06-03-2023 14:00-0400 Heart rate 77 /min [facility] 06-03-2023 14:00-0400 Respiratory rate 18 /min [facility] 06-03-2023 14:00-0400 SaO2% (BldA) [Mass fraction] 100 % [facility] 06-03-2023 14:00-0400 Systolic blood pressure 99 mm[Hg] [facility] 05-25-2023 22:00-0400 Diastolic blood pressure 62 mm[Hg] Heriberto Garcia [facility] 05-25-2023 22:00-0400 SaO2% (BldA) [Mass fraction] 99 % Heriberto Garcia [facility] 05-25-2023 22:00-0400 Systolic blood pressure 99 mm[Hg] Heriberto Garcia [facility] 05-25-2023 21:00-0400 Diastolic blood pressure 78 mm[Hg] Heriberto Garcia [facility] 05-25-2023 21:00-0400 Systolic blood pressure 114 mm[Hg] Heriberto Garcia [facility] 05-25-2023 20:00-0400 Diastolic blood pressure 73 mm[Hg] Heriberto Garcia [facility] 05-25-2023 20:00-0400 Systolic blood pressure 119 mm[Hg] Heriberto Garcia [facility] 05-25-2023 18:55-0400 Body temperature 98.24 [degF] Heriberto Garcia [facility] 05-25-2023 18:55-0400 Heart rate 97 /min Heriberto Garcia [facility] 05-25-2023 18:55-0400 Respiratory rate 18 /min Heribreto Garcia [facility] 05-25-2023 18:55-0400 SaO2% (BldA) [Mass fraction] 97 % Heriberto Garcia [facility] 04-27-2023 02:34-0400 Diastolic blood pressure 74 mm[Hg] Kaylinn Dokken [facility] 04-27-2023 02:34-0400 Heart rate 73 /min Kaylinn Dokken [facility] 04-27-2023 02:34-0400 Mean blood pressure 83 mm[Hg] Kaylinn Dokken [facility] 04-27-2023 02:34-0400 Respiratory rate 17 /min Kaylinn Dokken [facility] 04-27-2023 02:34-0400 SaO2% (BldA) [Mass fraction] 100 % Kaylinn Dokken [facility] 04-27-2023 02:34-0400 Systolic blood pressure 100 mm[Hg] Kaylinn Dokken [facility] 04-27-2023 01:02-0400 Diastolic blood pressure 78 mm[Hg] Kaylinn Dokken [facility] 04-27-2023 01:02-0400 Heart rate 77 /min Kaylinn Dokken [facility] 04-27-2023 01:02-0400 Mean blood pressure 94 mm[Hg] Kaylinn Dokken [facility] 04-27-2023 01:02-0400 Respiratory rate 18 /min Kaylinn Dokken [facility] 04-27-2023 01:02-0400 SaO2% (BldA) [Mass fraction] 100 % Kaylinn Dokken [facility] 04-27-2023 01:02-0400 Systolic blood pressure 125 mm[Hg] Kaylinn Dokken [facility] 04-27-2023 00:46-0400 Diastolic blood pressure 72 mm[Hg] Kaylinn Dokken [facility] 04-27-2023 00:46-0400 Heart rate 76 /min Kaylinn Dokken [facility] 04-27-2023 00:46-0400 Mean blood pressure 83 mm[Hg] Kaylinn Dokken [facility] 04-27-2023 00:46-0400 Respiratory rate 19 /min Kaylinn Dokken [facility] 04-27-2023 00:46-0400 SaO2% (BldA) [Mass fraction] 99 % Kaylinn Dokken [facility] 04-27-2023 00:46-0400 Systolic blood pressure 105 mm[Hg] Kaylinn Dokken [facility] 04-26-2023 22:28-0400 Body temperature 98.24 [degF] Kaylinn Dokken [facility] 04-26-2023 22:28-0400 Heart rate 95 /min Kaylinn Dokken [facility] 04-15-2023 01:00-0400 Diastolic blood pressure 70 mm[Hg] [facility] 04-15-2023 01:00-0400 Heart rate 74 /min [facility] 04-15-2023 01:00-0400 Respiratory rate 14 /min [facility] 04-15-2023 01:00-0400 SaO2% (BldA) [Mass fraction] 99 % [facility] 04-15-2023 01:00-0400 Systolic blood pressure 104 mm[Hg] [facility] 04-14-2023 23:43-0400 Body temperature 98.96 [degF] [facility] 04-14-2023 23:43-0400 Diastolic blood pressure 75 mm[Hg] [facility] 04-14-2023 23:43-0400 Heart rate 90 /min [facility] 04-14-2023 23:43-0400 Respiratory rate 16 /min [facility] 04-14-2023 23:43-0400 SaO2% (BldA) [Mass fraction] 98 % [facility] 04-14-2023 23:43-0400 Systolic blood pressure 109 mm[Hg] [facility] 03-10-2023 17:26-0400 Body temperature 98.24 [degF] Elliot Macias [facility] 03-10-2023 17:26-0400 Diastolic blood pressure 80 mm[Hg] Elliot Macias [facility] 03-10-2023 17:26-0400 Heart rate 97 /min Elliot Macias [facility] 03-10-2023 17:26-0400 Respiratory rate 18 /min Elliot Macias [facility] 03-10-2023 17:26-0400 SaO2% (BldA) [Mass fraction] 97 % Elliot Macias [facility] 03-10-2023 17:26-0400 Systolic blood pressure 134 mm[Hg] Elliot Macias [facility] 02-04-2023 08:07-0400 Body height 167.6 cm Rut Lagos MD Work Phone: [facility] 02-04-2023 08:07-0400 Body temperature 97.81 [degF] Rut Lagos MD Work Phone: [facility] 02-04-2023 08:07-0400 Body weight 93.17 kg Rut Lagos MD Work Phone: [facility] 02-04-2023 08:07-0400 Diastolic blood pressure 69 mm[Hg] Rut Lagos MD Work Phone: [facility] 02-04-2023 08:07-0400 Heart rate 71 /min Rut Lagos MD Work Phone: [facility] 02-04-2023 08:07-0400 SaO2% (BldA) [Mass fraction] 98 % Rut Lagos MD Work Phone: [facility] 02-04-2023 08:07-0400 Systolic blood pressure 118 mm[Hg] Rut Lagos MD Work Phone: [facility] 01-26-2023 00:30-0400 Body temperature 98.24 [degF] Kakellyinn Dokken [facility] 01-26-2023 00:30-0400 Diastolic blood pressure 84 mm[Hg] Kaylinn Dokken [facility] 01-26-2023 00:30-0400 Heart rate 92 /min Kaylinn Dokken [facility] 01-26-2023 00:30-0400 Mean blood pressure 93 mm[Hg] Kaylinn Dokken [facility] 01-26-2023 00:30-0400 Respiratory rate 17 /min Kaorylinn Dokken [facility] 01-26-2023 00:30-0400 SaO2% (BldA) [Mass fraction] 98 % Kaylinn Dokken [facility] 01-26-2023 00:30-0400 Systolic blood pressure 110 mm[Hg] Kaylinn Dokken [facility] 01-26-2023 00:00-0400 Diastolic blood pressure 78 mm[Hg] Kaylinn Dokken [facility] 01-26-2023 00:00-0400 Respiratory rate 12 /min Kaylinn Dokken [facility] 01-26-2023 00:00-0400 SaO2% (BldA) [Mass fraction] 99 % Kaylinn Dokken [facility] 01-26-2023 00:00-0400 Systolic blood pressure 123 mm[Hg] Kaylinn Dokken [facility] 01-25-2023 23:00-0400 Diastolic blood pressure 79 mm[Hg] Kaylinn Dokken [facility] 01-25-2023 23:00-0400 Heart rate 95 /min Kaylinn Dokken [facility] 01-25-2023 23:00-0400 Mean blood pressure 92 mm[Hg] Kaylinn Dokken [facility] 01-25-2023 23:00-0400 SaO2% (BldA) [Mass fraction] 100 % Kaylinn Dokken [facility] 01-25-2023 23:00-0400 Systolic blood pressure 117 mm[Hg] Kaylinn Dokken [facility] 01-25-2023 20:50-0400 Heart rate 130 /min Kaylinn Dokken [facility] 01-25-2023 20:50-0400 Respiratory rate 20 /min Alfred Graham [facility] 01-13-2023 16:30-0400 Diastolic blood pressure 79 mm[Hg] [facility] 01-13-2023 16:30-0400 Heart rate 73 /min [facility] 01-13-2023 16:30-0400 Mean blood pressure 93 mm[Hg] [facility] 01-13-2023 16:30-0400 SaO2% (BldA) [Mass fraction] 100 % [facility] 01-13-2023 16:30-0400 Systolic blood pressure 122 mm[Hg] [facility] 01-13-2023 16:07-0400 Blood Pressure Location [facility] 01-13-2023 16:07-0400 Diastolic blood pressure 79 mm[Hg] [facility] 01-13-2023 16:07-0400 Heart rate 76 /min [facility] 01-13-2023 16:07-0400 Mean blood pressure 93 mm[Hg] [facility] 01-13-2023 16:07-0400 SaO2% (BldA) [Mass fraction] 100 % [facility] 01-13-2023 16:07-0400 Systolic blood pressure 122 mm[Hg] [facility] 01-13-2023 16:04-0400 Diastolic blood pressure 80 mm[Hg] [facility] 01-13-2023 16:04-0400 Heart rate 82 /min [facility] 01-13-2023 16:04-0400 Mean blood pressure 94 mm[Hg] [facility] 01-13-2023 16:04-0400 Respiratory rate 16 /min [facility] 01-13-2023 16:04-0400 SaO2% (BldA) [Mass fraction] 99 % [facility] 01-13-2023 16:04-0400 Systolic blood pressure 123 mm[Hg] [facility] 01-13-2023 15:29-0400 Blood Pressure Location [facility] 01-13-2023 14:35-0400 Body temperature 98.24 [degF] [facility] 01-13-2023 14:35-0400 Heart rate 87 /min [facility] 01-13-2023 14:35-0400 Respiratory rate 18 /min [facility] 01-09-2023 16:00-0400 Diastolic blood pressure 55 mm[Hg] Elliot Macias [facility] 01-09-2023 16:00-0400 Heart rate 69 /min Elliot Gilberto [facility] 01-09-2023 16:00-0400 Mean blood pressure 68 mm[Hg] Elliot Macias [facility] 01-09-2023 16:00-0400 Respiratory rate 16 /min Elliot Macias [facility] 01-09-2023 16:00-0400 SaO2% (BldA) [Mass fraction] 96 % Elliot Macias [facility] 01-09-2023 16:00-0400 Systolic blood pressure 95 mm[Hg] Elliot Macias [facility] 01-09-2023 15:44-0400 Diastolic blood pressure 52 mm[Hg] Elliot Macias [facility] 01-09-2023 15:44-0400 Heart rate 71 /min Elliot Macias [facility] 01-09-2023 15:44-0400 Mean blood pressure 69 mm[Hg] Elliot Gilberto [facility] 01-09-2023 15:44-0400 Respiratory rate 17 /min Elliot Gilberto [facility] 01-09-2023 15:44-0400 SaO2% (BldA) [Mass fraction] 98 % Elliot Macias [facility] 01-09-2023 15:44-0400 Systolic blood pressure 102 mm[Hg] Elliot Gilberto [facility] 01-09-2023 15:00-0400 Diastolic blood pressure 64 mm[Hg] Elliot Macias [facility] 01-09-2023 15:00-0400 Heart rate 70 /min Elliot Macias [facility] 01-09-2023 15:00-0400 Mean blood pressure 79 mm[Hg] Elliot Gilberto [facility] 01-09-2023 15:00-0400 Respiratory rate 14 /min Elliot Macias [facility] 01-09-2023 15:00-0400 Systolic blood pressure 108 mm[Hg] Elliot Gilberto [facility] 01-09-2023 12:44-0400 Body temperature 97.7 [degF] Elliot Gilberto [facility] 01-09-2023 12:44-0400 Heart rate 103 /min Elliot Gilberto [facility] 12-24-2022 16:34-0400 Diastolic blood pressure 69 mm[Hg] Veronica Curtis MD Work Phone: [facility] 12-24-2022 16:34-0400 Heart rate 83 /min Veronica Curtis MD Work Phone: [facility] 12-24-2022 16:34-0400 Respiratory rate 16 /min Veronica Curtis MD Work Phone: [facility] 12-24-2022 16:34-0400 SaO2% (BldA) [Mass fraction] 98 % Veronica Curtis MD Work Phone: [facility] 12-24-2022 16:34-0400 Systolic blood pressure 107 mm[Hg] Veronica Curtis MD Work Phone: [facility] 12-24-2022 15:01-0400 Body height 167.6 cm Veronica Curtis MD Work Phone: [facility] 12-24-2022 15:01-0400 Body mass index (BMI) [Ratio] 33.73 kg/m2 Veronica Curtis MD Work Phone: [facility] 12-24-2022 15:01-0400 Body weight 94.8 kg Veronica Curtis MD Work Phone: [facility] 12-24-2022 14:58-0400 Body temperature 98.4 [degF] Veronica Curtis MD Work Phone: [facility] 09-29-2022 20:29-0500 Diastolic blood pressure 83 mm[Hg] Alex Laura [facility] 09-29-2022 20:29-0500 Heart rate 87 /min Alex Laura [facility] 09-29-2022 20:29-0500 Mean blood pressure 98 mm[Hg] Alex Laura [facility] 09-29-2022 20:29-0500 Respiratory rate 16 /min Alex Laura [facility] 09-29-2022 20:29-0500 SaO2% (BldA) [Mass fraction] 100 % Alex Laura [facility] 09-29-2022 20:29-0500 Systolic blood pressure 129 mm[Hg] Alex Laura [facility] 09-29-2022 19:43-0500 Diastolic blood pressure 77 mm[Hg] Alex Laura [facility] 09-29-2022 19:43-0500 Heart rate 91 /min Alex Laura [facility] 09-29-2022 19:43-0500 Mean blood pressure 85 mm[Hg] Alex Laura [facility] 09-29-2022 19:43-0500 Respiratory rate 19 /min Alex Laura [facility] 09-29-2022 19:43-0500 SaO2% (BldA) [Mass fraction] 100 % Alex Laura [facility] 09-29-2022 19:43-0500 Systolic blood pressure 101 mm[Hg] Alex Laura [facility] 09-29-2022 19:07-0500 Body temperature 98.42 [degF] Alex Laura [facility] 09-29-2022 19:07-0500 Diastolic blood pressure 77 mm[Hg] Alex Laura [facility] 09-29-2022 19:07-0500 Heart rate 100 /min Alex Laura [facility] 09-29-2022 19:07-0500 Respiratory rate 18 /min Alex Laura [facility] 09-29-2022 19:07-0500 SaO2% (BldA) [Mass fraction] 99 % Alex Laura [facility] 09-29-2022 19:07-0500 Systolic blood pressure 101 mm[Hg] Alex Laura [facility] 05-31-2022 00:10-0400 Diastolic blood pressure 66 mm[Hg] Kaylinn Dokken [facility] 05-31-2022 00:10-0400 Heart rate 77 /min Kaylinn Dokken [facility] 05-31-2022 00:10-0400 Hourly Rounding Kaylinn Dokken [facility] 05-31-2022 00:10-0400 Mean blood pressure 80 mm[Hg] Kaylinn Dokken [facility] 05-31-2022 00:10-0400 Respiratory rate 20 /min Kaylinn Dokken [facility] 05-31-2022 00:10-0400 SaO2% (BldA) [Mass fraction] 100 % Kaylinn Dokken [facility] 05-31-2022 00:10-0400 Systolic blood pressure 107 mm[Hg] Kaylinn [facility] [facility] 05-30-2022 23:03-0400 Diastolic blood pressure 64 mm[Hg] Kaylinn Dokken [facility] 05-30-2022 23:03-0400 Heart rate 81 /min Kaylinn Dokken [facility] 05-30-2022 23:03-0400 Hourly Rounding Kaylinn Dokken [facility] 05-30-2022 23:03-0400 Mean blood pressure 78 mm[Hg] Kaylinn Dokken [facility] 05-30-2022 23:03-0400 Respiratory rate 20 /min Kaylinn Dokken [facility] 05-30-2022 23:03-0400 SaO2% (BldA) [Mass fraction] 100 % Kaylinn Dokken [facility] 05-30-2022 23:03-0400 Systolic blood pressure 105 mm[Hg] Kaylinn Dokken [facility] 05-30-2022 22:10-0400 Diastolic blood pressure 80 mm[Hg] Kaylinn Dokken [facility] 05-30-2022 22:10-0400 Heart rate 77 /min Kaylinn Dokken [facility] 05-30-2022 22:10-0400 Hourly Rounding Kaylinn Dokken [facility] 05-30-2022 22:10-0400 Mean blood pressure 88 mm[Hg] Kaylinn Dokken [facility] 05-30-2022 22:10-0400 Respiratory rate 20 /min Kaylinn Dokken [facility] 05-30-2022 22:10-0400 SaO2% (BldA) [Mass fraction] 100 % Kaylinn Dokken [facility] 05-30-2022 22:10-0400 Systolic blood pressure 105 mm[Hg] Kaylinn Dokken [facility] 05-30-2022 20:34-0400 Body temperature 98.42 [degF] Kaylinn Dokken [facility] 02-27-2022 23:00-0400 Diastolic blood pressure 74 mm[Hg] Alex Laura [facility] 02-27-2022 23:00-0400 Heart rate 90 /min Alex Laura [facility] 02-27-2022 23:00-0400 Mean blood pressure 91 mm[Hg] Alex Laura [facility] 02-27-2022 23:00-0400 Respiratory rate 16 /min Alex Laura [facility] 02-27-2022 23:00-0400 SaO2% (BldA) [Mass fraction] 98 % Alex Laura [facility] 02-27-2022 23:00-0400 Systolic blood pressure 124 mm[Hg] Alex Laura [facility] 02-27-2022 21:55-0400 Diastolic blood pressure 79 mm[Hg] Alex Laura [facility] 02-27-2022 21:55-0400 Heart rate 93 /min Alex Laura [facility] 02-27-2022 21:55-0400 Nursing Progress Note Reason Other: to CT via cart Alex Laura [facility] 02-27-2022 21:55-0400 Respiratory rate 18 /min Alex Laura [facility] 02-27-2022 21:55-0400 SaO2% (BldA) [Mass fraction] 97 % Alex Laura [facility] 02-27-2022 21:55-0400 Systolic blood pressure 127 mm[Hg] Alex Laura [facility] 02-27-2022 20:00-0400 Diastolic blood pressure 91 mm[Hg] Alex Laura [facility] 02-27-2022 20:00-0400 Heart rate 95 /min Alex Laura [facility] 02-27-2022 20:00-0400 SaO2% (BldA) [Mass fraction] 100 % Alex Laura [facility] 02-27-2022 20:00-0400 Systolic blood pressure 137 mm[Hg] Alex Laura [facility] 02-27-2022 19:25-0400 Body temperature 98.78 [degF] Alex Laura [facility] 12-18-2021 05:31-0400 Diastolic blood pressure 80 mm[Hg] [facility] 12-18-2021 05:31-0400 Heart rate 89 /min [facility] 12-18-2021 05:31-0400 Mean blood pressure 94 mm[Hg] [facility] 12-18-2021 05:31-0400 SaO2% (BldA) [Mass fraction] 99 % [facility] 12-18-2021 05:31-0400 Systolic blood pressure 123 mm[Hg] [facility] 12-18-2021 03:50-0400 Body temperature 97.88 [degF] [facility] 12-18-2021 03:50-0400 Diastolic blood pressure 74 mm[Hg] [facility] 12-18-2021 03:50-0400 Heart rate 110 /min [facility] 12-18-2021 03:50-0400 Respiratory rate 16 /min [facility] 12-18-2021 03:50-0400 SaO2% (BldA) [Mass fraction] 96 % [facility] 12-18-2021 03:50-0400 Systolic blood pressure 142 mm[Hg] [facility] 08-10-2021 07:47-0500 Body height 167.6 cm [facility]-10-2021 07:47-0500 Body mass index (BMI) [Ratio] 35.98 kg/m2 Kale Cheema MD Work Phone: [employer] 08-10-2021 07:47-0500 Body temperature 98.01 [degF] Kale Cheema MD Work Phone: [facility] 08-10-2021 07:47-0500 Body weight 101.11 kg Kale Cheema MD Work Phone: [facility] 08-10-2021 07:47-0500 Diastolic blood pressure 89 mm[Hg] Kale Cheema MD Work Phone: [facility] 08-10-2021 07:47-0500 Heart rate 84 /min Kale Cheema MD Work Phone: [facility] 08-10-2021 07:47-0500 Respiratory rate 18 /min Kale Cheema MD Work Phone: [facility] 08-10-2021 07:47-0500 SaO2% (BldA) [Mass fraction] 99 % Kale Cheema MD Work Phone: [facility] 08-10-2021 07:47-0500 Systolic blood pressure 128 mm[Hg] Kale Cheema MD Work Phone: [facility] 08-10-2020 09:17-0500 BP Diastolic 56 mm[Hg] [facility] [place] 08-10-2020 09:17-0500 BP Systolic 106 mm[Hg] [facility] [employer] [place] , [place] 08-10-2020 09:17-0500 Pulse (Heart Rate) 75 /min [facility] [place] 08-10-2020 09:17-0500 Pulse Oximetry 96 % Roselia Hensley [facility] , [place] 08-10-2020 09:17-0500 Respiratory Rate 18 /min [facility] [place] 08-10-2020 08:01-0500 BMI (Body Mass Index) 37.77 kg/m2 Roselia Hensley [facility], [place] 08-10-2020 08:01-0500 Body Temperature 97.81 [degF] [facility] [place] 08-10-2020 08:01-0500 Body weight 106.14 kg Roselia Hensley [facility] , [place] 08-10-2020 08:01-0500 Height 167.6 cm Roselia Hensley [facility] , [place] 03-01-2020 22:35-0400 BP Diastolic 67 mm[Hg] [facility] [place] 03-01-2020 22:35-0400 BP Systolic 118 mm[Hg] [facility] [place] 03-01-2020 22:35-0400 Pulse Oximetry 99 % Jo Staples [facility] , [place] 03-01-2020 21:05-0400 BMI (Body Mass Index) 38.29 kg/m2 Jo Hensley [facility], [place] 03-01-2020 21:05-0400 Body Temperature 99.39 [degF] [facility] [place] [place] 03-01-2020 21:05-0400 [facility] [place] 03-01-2020 21:05-0400 Pulse (Heart Rate) 116 /min Jo Mccartyv [facility], [place] 03-01-2020 21:05-0400 Respiratory Rate 20 /min [facility] [place] Encounters Encounter Date Encounter Type Care Provider Facility Start: 03-02-2025 End: 03-02-2025 Telephone encounter Shaq Thakkar MD Work Phone: Colorectal Surgery Comment on above: Care Coordination (M issed office appointment ) Start: 02-25-2025 End: 02-25-2025 Telephone encounter Shaq Thakkar MD Work Phone: Colorectal Surgery Comment on above: Care Coordination (N O SHOW appointment ) Start: 02-19-2025 End: 02-19-2025 Admission to same day surgery center Solis Flores RN Colorectal Surgery Comment on above: Non healing surgical wound Start: 02-19-2025 End: 02-19-2025 Patient encounter procedure Shaq Thakkar MD Work Phone: COLORECTAL SURGERY Comment on above: Follow-up examinatio n after colorectal surgery (Primary Dx); Attention to ileostomy (HCC) Start: 02-19-2025 End: 02-19-2025 ambulatory Solis Flores RN Colorectal Surgery Start: 01-22-2025 End: 01-22-2025 Patient encounter procedure Anand Conte APRN.[employer] Work Phone: Colorectal Surgery Comment on above: Follow-up examinatio n after colorectal surgery (Primary Dx); 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); Crohn's disease of perianal region with fistula (HCC) Start: 01-22-2025 End: 01-22-2025 ambulatory ANAND CONTE Facility:[facility] Start: 01-21-2025 End: 01-21-2025 Office outpatient visit 25 minutes Magdalene REECE Work Phone: [facility] Comment on above: Seizure (CMS/HCC) (P rimary Dx); RLS (restless legs syndrome); Sleep disturbance; Lumbar back pain; Pain in both lower extremities; Paresthesia Start: 01-21-2025 End: 01-21-2025 ambulatory MAGDALENE BOYLE Not Available Start: 01-21-2025 End: 01-21-2025 Bamboo flowsheet Magdalene REECE Work Phone: [facility] Start: 01-21-2025 End: 01-21-2025 Bamboo flowsheet Magdalene REECE Work Phone: [facility] Start: 01-20-2025 End: 01-21-2025 Admission to same day surgery center Shaq Thakkar MD Work Phone: Colorectal Surgery Comment on above: Medication Start: 01-20-2025 End: 01-21-2025 ambulatory Shaq Thakkar MD Work Phone: Colorectal Surgery Start: 01-20-2025 End: 01-20-2025 Telephone encounter Heidi Naik MD Work Phone: Pain Management Start: 01-19-2025 End: 01-19-2025 Admission to same day surgery center Shaq Thakkar MD Work Phone: Colorectal Surgery Comment on above: Surgery Start: 01-19-2025 End: 01-19-2025 ambulatory Shaq Thakkar MD Work Phone: Colorectal Surgery Start: 01-15-2025 ambulatory SHAQ BUSTAMANTE MD Facility:[facility] Start: 01-13-2025 End: 01-30-2025 Pre-admission assessment MAGDALENE BOYLE [facility] Start: 01-08-2025 End: 01-14-2025 Evaluation and management of inpatient SHAQ THAKKAR Facility:[facility] Start: 01-03-2025 End: 01-04-2025 Emergency department patient visit Elliot Macias [facility] Start: 12-30-2024 End: 12-30-2024 Emergency department patient visit Heriberto Cervantes [facility] Start: 12-29-2024 End: 12-30-2024 Admission to same day surgery center Shaq Thakkar MD Work Phone: Colorectal Surgery Comment on above: Surgery Start: 12-29-2024 End: 12-30-2024 ambulatory Shaq Thakkar MD Work Phone: Colorectal Surgery Start: 12-25-2024 End: 12-25-2024 Emergency department patient visit Alex Larios MD Work Phone: [facility] Comment on above: Crohn's disease of p erianal region with fistula (HCC) (Primary Dx) Start: 12-25-2024 End: 12-25-2024 Admission to same day surgery center Shaq Thakkar MD Work Phone: Colorectal Surgery Comment on above: Dr Bhardwaj Start: 12-25-2024 End: 12-25-2024 ambulatory Shaq Thakkar MD Work Phone: Colorectal Surgery Start: 12-25-2024 End: 12-28-2024 Telephone encounter Michael Cheema APRN.CNP Work Phone: Pre Anesthesia Comment on above: Results Start: 12-24-2024 End: 12-24-2024 Admission to establishment [facility] [place] 1 Work Phone: Pre Anesthesia Start: 12-24-2024 End: 12-24-2024 ambulatory SHAQ THAKKAR Facility:[facility] Start: 12-24-2024 End: 12-24-2024 Anesthesia consultation [facility] [place] 1 Work Phone: Pre Anesthesia Comment on above: Pre-op evaluation (P rimary Dx); Anemia, unspecified type; Generalized seizures (HCC); Ileostomy in place (HCC); Perineal abscess; Anxiety and depression Start: 12-24-2024 Encounter for other preprocedural examination KALE RENDON [facility] Start: 12-24-2024 End: 12-24-2024 Preprocedural examination done Pac [place] 1 Work Phone: [facility] Start: 12-23-2024 End: 12-23-2024 Emergency department patient visit Harry Ida [facility] Start: 12-23-2024 End: 12-23-2024 ambulatory Ja Bhardwaj Facility:[facility] Start: 12-17-2024 End: 12-18-2024 Evaluation and management of inpatient JEANINE ISAAC Facility:[facility] Start: 12-16-2024 End: 12-17-2024 Emergency department patient visit Heriberto Cervantes Facility[facility] Start: 12-15-2024 End: 12-15-2024 Emergency department patient visit Elliot Macias [facility] Start: 12-15-2024 End: 12-15-2024 ambulatory MAGDALENE BOYLE Not Available Start: 12-14-2024 End: 12-15-2024 Admission to same day surgery center Shaq Thakkar MD Work Phone: Colorectal Surgery Comment on above: Anorectal abscess Start: 12-14-2024 End: 12-15-2024 ambulatory Shaq Thakkar MD Work Phone: Colorectal Surgery Start: 12-12-2024 End: 12-13-2024 Emergency department patient visit Carolyn Caglewes Facility:[facility] Start: 12-09-2024 End: 12-09-2024 Emergency department patient visit Alfred Graham [facility] Start: 12-04-2024 End: 12-04-2024 Admission to same [...] [facility] External Department Unsolicited Start: 11-23-2024 End: 11-26-2024 Clinisync Result Encounter Ted Petersen DO Work Phone: [facility] External Department Unsolicited Start: 11-23-2024 End: 11-23-2024 ambulatory Ted Petersen [facility] Work Phone: Start: 11-23-2024 End: 11-23-2024 Departed Referred Ted Petersen DO Work Phone: [facility] [place] Work Phone: Start: 11-22-2024 End: 11-25-2024 Evaluation and management of inpatient Dago OLVERA Facility:[facility] Start: 11-22-2024 End: 11-25-2024 Evaluation and management of inpatient Dago OLVERA [facility] Start: 11-14-2024 End: 11-14-2024 Emergency department patient visit Harry Devine [facility] Start: 11-11-2024 End: 11-11-2024 ambulatory Ja Bhardwaj Facility:[facility] Start: 11-11-2024 End: 11-11-2024 Patient encounter procedure [facility] Start: 10-25-2024 Non-patient / Non-visit Ted rosado DO Work Phone: [facility] Work Phone: Start: 10-02-2024 End: 10-02-2024 Emergency department patient visit Harry Devine [facility] Start: 08-12-2024 End: 08-12-2024 Telephone encounter Lee Ann Humphries DO Work Phone: Gastroenterology [facility] Start: 08-12-2024 End: 08-12-2024 ambulatory KALE RENDON Facility:[facility] Start: 07-23-2024 Emergency department patient visit Carolyn Mcmahon Facility:[facility] Start: 07-20-2024 End: 07-20-2024 ambulatory SHAQ THAKKAR Facility:[facility] Start: 07-17-2024 End: 07-17-2024 ambulatory SHAQ THAKKAR Facility:[facility] Start: 07-17-2024 End: 07-17-2024 Patient encounter procedure Shaq Thakkar MD Work Phone: Colorectal Surgery Comment on above: Anal fistula (Primar y Dx); Crohn's disease with fistula, unspecified gastrointestinal tract location (HCC) Start: 07-13-2024 End: 07-13-2024 Emergency department patient visit Elliot Macias [facility] Start: 07-13-2024 End: 07-13-2024 Specialty Pharmacy Zaira Gonzalez [facility] Comment on above: SPP Inflammatory Con ditions - Medication Refill (Entyvio) Start: 07-01-2024 End: 07-01-2024 ambulatory Zaira Gonzalez [facility] Start: 07-01-2024 End: 07-01-2024 Follow-up encounter Zaira Gonzalez [facility] Comment on above: SPP Inflammatory Con ditions - Follow-up (Enytvio); Insurance Authorization ([place] renewal approved) Start: 06-30-2024 End: 06-30-2024 Emergency department patient visit Harry Devine Facility:[facility] Start: 06-12-2024 End: 06-12-2024 ambulatory Zaira Gonzalez [facility] Start: 06-12-2024 End: 06-12-2024 Follow-up encounter Zaira Gonzalez [facility] Comment on above: SPP Inflammatory Con ditions - Follow-up (Entyvio); Insurance Authorization (PA renewal approved for 1 month) SPP Inflammatory Con ditions - Medication Refill (Entyvio) Start: 05-15-2024 End: 05-15-2024 Specialty Pharmacy Zaira Gonzalez [facility] Comment on above: SPP Inflammatory Con ditions - Medication Refill (Entyvio) Start: 05-13-2024 End: 05-13-2024 Telephone encounter Candis Laughlin RN Work Phone: General Surgery Start: 04-08-2024 End: 04-08-2024 Emergency department patient visit [facility] V[facility] Mcmahon [facility] Start: 04-01-2024 Telephone encounter Maddie Sevilla RN [facility] Start: 04-01-2024 End: 04-01-2024 ambulatory LEE ANNCHRISTI HUMPHRIES [facility] Start: 04-01-2024 End: 04-01-2024 Patient encounter procedure Mary Infusion Chair 3 Work Phone: [facility] Start: 03-25-2024 Telephone encounter Maddie Sevilla RN G [facility] Start: 03-12-2024 End: 03-12-2024 Patient encounter procedure Mary Infusion Chair 2 Work Phone: [facility] Start: 03-12-2024 End: 03-12-2024 ambulatory LEE ANNCHRISTI HUMPHRIES [facility] Comment on above: Arrived Start: 03-08-2024 End: 03-08-2024 Emergency department patient visit [facility] Start: 03-04-2024 End: 03-04-2024 Emergency department patient visit [facility] Start: 03-02-2024 End: 03-02-2024 ambulatory Zuly Soto Facility: [facility] Start: 03-02-2024 End: 03-02-2024 Patient encounter procedure Zuly Soto [facility] Start: 02-26-2024 ambulatory Zaira finley [facility] Start: 02-26-2024 Patient encounter procedure Zaira Gonzalez [facility] Comment on above: SPP Inflammatory Con ditions - Treatment Referral (Entyvio); Insurance Authorization (PA submitted ) Start: 02-26-2024 Telephone encounter Lee Ann Huey ericksonkuldip DO Work Phone: Gastroenterology Comment on above: Orders (Entyvio); Ca re Coordinator - Other Start: 02-25-2024 End: 02-25-2024 Office outpatient visit 25 minutes Lee Ann Diana DO Work Phone: Gastroenterology [facility] Comment on above: Crohn's disease of c olon with fistula (HCC) (Primary Dx); Crohn's disease of both small and large intestine with intestinal obstruction (HCC); Ileostomy prolapse (HCC) Start: 01-27-2024 Orders Only Rut Lagos MD Work Phone: Gastroenterology Start: 01-20-2024 Telephone encounter Martha edmond PA-C Work Phone: [facility] Provider Adult Comment on above: Appointment Start: 01-17-2024 Telephone encounter Rut mccartney MD Work Phone: Gastroenterology Comment on above: Barrel Cutter - O ther Start: 12-21-2023 End: 12-21-2023 Emergency department patient visit Elliot Macias [facility] Start: 12-07-2023 End: 12-08-2023 Emergency department patient visit Harry Florese [facility] Start: 11-15-2023 End: 11-15-2023 Patient encounter procedure Patricia Ramirez APRN.CNM Work Phone: Obstetrics/Gynecology Comment on above: At risk for depresse d mood during period (Primary Dx); Lactating mother Start: 10-24-2023 End: 10-24-2023 Patient encounter procedure Whi Tech 1 [employer] [facility] Maternal Medicine Comment on above: Maternal Crohn's dis ease affecting in third trimester (HCC) (Primary Dx); Crohn's disease of colon with complication (HCC) Start: 10-01-2023 End: 10-01-2023 ambulatory Anoop Lopez Facility:[facility] Start: 10-01-2023 End: 10-01-2023 Emergency department patient visit Harry Devine Facility:[facility] Start: 10-01-2023 End: 10-01-2023 ambulatory Anoop Lopez Facility:[facility] Start: 09-07-2023 End: 09-23-2023 Pre-admission assessment Anoop Lopez [facility] Start: 09-06-2023 End: 09-06-2023 ambulatory Anoop Lopez Facility:[facility] Start: 09-06-2023 End: 09-06-2023 OB Triage Anoop Lopez [facility] Start: 09-06-2023 End: 09-06-2023 Emergency department patient visit Heriberto Cervantes Facility:[facility] Start: 09-05-2023 End: 09-05-2023 Patient encounter procedure Nae Costa MD Work Phone: Obstetrics/Gynecology Comment on above: care, subse quent , third trimester (Primary Dx); 31 weeks gestation of ; 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); Anemia during in third trimester; Sterilization consult; Maternal Crohn's disease affecting in third trimester (HCC) Start: 08-21-2023 Telephone encounter Martha edmond PA-C Work Phone: Provider Adult Comment on above: Follow Up (Needs OV) Start: 08-19-2023 Telephone encounter Nae araya MD Work Phone: Obstetrics/Gynecology Comment on above: cramping; Bleeding W ith Start: 08-05-2023 Telephone encounter Barrel Cutter RN Maternal Medicine Comment on above: Barrel Cutter - O ther (PRAF) Start: 08-01-2023 End: [...] anxiety medica tion Start: 07-05-2023 Telephone encounter Barrel Cutter RN Obstetrics/Gynecology Comment on above: PRAF (1st [...] 06-03-2023 Emergency department patient visit [facility] [place] Emergency 03 Start: 05-25-2023 End: 05-25-2023 Emergency department patient visit Heriberto Cervantes [facility] Start: 04-30-2023 Telephone encounter Araceli ortega MD Work Phone: Provider Adult Comment on above: Hospital To Hospital Start: 04-26-2023 End: 04-27-2023 Emergency department patient visit Alfred Graham [facility] Start: 04-18-2023 Telephone encounter Rosina Louisvaldemar stephens APRN.[employer] Work Phone: Gastroenterology Comment on above: Appointment; Patient Update; Barrel Cutter - Other Start: 04-14-2023 End: 04-15-2023 Emergency department patient visit Carolyn Mcmahon [facility] Start: 04-14-2023 Chart abstracting Courtney Schroeder Colorectal Surgery Start: 04-05-2023 Telephone encounter Qing jaimes [facility] Work Phone: Gastroenterology Comment on above: Appointment Start: 03-10-2023 End: 03-10-2023 Emergency department patient visit Elliot Macias [facility] Start: 03-06-2023 Telephone encounter Rosina stephens APRN.[employer] Work Phone: [facility] Comment on above: Medication Authoriza tion (Cortifoam 10% foam requires PA) Start: 03-05-2023 Telephone encounter Rut mccartney MD Work Phone: Gastroenterology Comment on above: Patient Update Start: 02-21-2023 End: 02-21-2023 Patient encounter procedure Karlos RAWLS [facility] Start: 02-04-2023 End: 02-04-2023 Patient encounter procedure Rut Lagos MD Work Phone: Gastroenterology Comment on above: Crohn's disease of c olon with fistula (HCC) (Primary Dx); History of endoscopy; Imaging of gastrointestinal tract abnormal; Crohn's colitis, unspecified complication (HCC) Start: 01-25-2023 End: 01-26-2023 Emergency department patient visit Alfred Graham [facility] Start: 01-18-2023 Orders Only Zhane Quinones MD Work Phone: Gastroenterology Comment on above: Diarrhea, unspecifie d type (Primary Dx) Start: 01-13-2023 End: 01-13-2023 Emergency department patient visit Carolyn Mcmahon [facility] Start: 01-09-2023 End: 01-09-2023 Emergency department patient visit Elliot Macias [facility] Start: 12-24-2022 End: 12-24-2022 Emergency department patient visit Veronica Curtis MD Work Phone: [facility] Comment on above: Gastroenteritis (Moni jaida Dx) Start: 09-29-2022 End: 09-29-2022 Emergency department patient visit Alex Lopez Laura [facility] Start: 05-30-2022 End: 05-31-2022 Emergency department patient visit Alfred Graham [facility] Start: 02-27-2022 End: 02-27-2022 Emergency department patient visit Alex Sanchez [facility] Start: 12-18-2021 End: 12-18-2021 [facility] Start: 08-10-2021 End: 08-10-2021 Emergency department patient visit Kale Cheema MD Work Phone: [facility] Comment on above: Fungal infection of skin of abdomen (Primary Dx); History of ileostomy; History of Crohn's disease Start: 07-17-2021 ambulatory UNKNOWN PROVIDER Facili ty:[facility] Start: 07-16-2021 End: 07-17-2021 Emergency department patient visit UNKNOWN PROVIDER Facility:[facility] Start: 08-10-2020 End: 08-10-2020 Emergency department patient visit Roselia Gallardo Work Phone: [facility] Comment on above: Acute Crohn's diseas e without complication (HCC) (Primary Dx); Generalized abdominal pain Start: 03-01-2020 End: 03-01-2020 Emergency department patient visit Jo Staples Work Phone: [facility] Comment on above: Abdominal pain, unsp ecified abdominal location (Primary Dx); Exacerbation of ulcerative colitis with rectal bleeding (HCC) Start: 07-21-2019 End: 07-21-2019 Patient encounter procedure HARRY DEVINE Facility: Procedures Date Procedure Procedure Detail Performing Clinician Start: 01-10-2025 Antibody screen PATRICIA HUBER Comment on above: Order Comment: Specimen Type: BLOOD SPEC IMENOrdering Facility: [facility] Address: [address] [place] [address] Performed By: #### T SCR ####[facility] BLOOD BANKCLIA [id number] [address] Start: 12-24-2024 Antibody screen KALE RENDON Comment on above: Order Comment: Specimen Type: BLOOD SPEC IMENOrdering Facility: [facility] Address: [address] [place] [address] Performed By: #### T SCR ####[facility] BLOOD BANKCLIA [id number] [address] Start: 12-17-2024 Antibody screen JEANINE ISAAC Comment on above: Order Comment: Specimen Type: BLOOD SPEC IMEN Ordering Facility: [facility] Address: [address] [place] [address] Performed By: #### T SCR #### [facility] CLIA [id number] Order Comment: Speci men Type: BLOOD SPECIMENOrdering Facility: [facility] Address: [facility] [place] [address] Performed By: #### T SCR ####[facility] BLOOD BANKCLIA [id number] [place] [id number] [place] Start: 11-23-2024 CSF (PCR) Ted Petersen DO Work Phone: Start: 11-23-2024 C SPINAL FLUID Ted Petersen DO Work Phone: Start: 11-09-2024 H/O: ileostomy Peres Talal Sarmini Start: 07-20-2024 I&d ischiorectal&/perirectal abscess spx Peres Sarmini Start: 07-20-2024 I&d vulva/perineal abscess Peres Sarm ini Start: 03-01-2024 H/O: ileostomy Zuly Ganesh Soto Start: 01-20-2024 Colonoscopy flx dx w/collj spec when pfrmd Peres Jean Mariemini Start: 01-20-2024 Enterosc >2nd prtn w/ileum w/wo collj spec spx Peres Sarmini Start: 10-24-2023 Us preg uterus after 1st trimest 09/23 gestation Nae Costa MD Work Phone: Start: 10-24-2023 delivery only Peresashia Sotoi Start: 10-24-2023 Salpingectomy complete/partial uni/bi spx Peres Jean Mariemini Start: 09-05-2023 URINE OB DIP B/O Nae [...] 06-03-2023 End: 06-03-2023 EKG impression El W Drea Start: 02-20-2023 H/O: ileostomy Everettdarwin WADEARIADNA Start: 01-18-2023 Colonoscopy flx dx w/collj spec when pfrmd Ja Bhardwaj Start: 01-18-2023 Enterosc >2nd prtn w/ileum w/wo collj spec spx Ja Bhardwaj Start: 01-18-2023 Colonoscopy Karoyldavid Graham Comment on above: MUSCOSAL ULCERATIONS IN THE SIGMOID COLO N PER DR NATASHA PRICE @ [facility] Start: 12-24-2022 Ct abdomen & pelvis w/contrast material Veronica Curtis MD Work Phone: Start: 12-24-2022 Urinalysis microscopic only Veronica Curtis MD Work Phone: Start: 12-24-2022 Urnls dip stick/tablet rgnt auto w/o microscopy Veronica Curtis MD Work Phone: Start: 12-24-2022 Comprehensive [...] 03-01-2020 Blood count complete auto&auto difrntl wbc Vesharman Jhoan Work Phone: Start: 03-01-2020 Comprehensive metabolic [...] (1 of 3 - Risk 3-dose series) [facility] Start: 2055 Hepatitis B Vaccine (1 of 3 - Risk 3-dose series) Hepatitis B Vaccine (1 of 3 - Risk 3-dose series) [facility] Start: 09-19-2033 DTaP/Tdap/Td vaccine (4 - Td or Tdap) DTaP/Tdap/Td vaccine (4 - Td or Tdap) [facility] Start: 09-19-2033 Urine microalbumin profile DTaP,Tdap,Td Vaccine (4 - Td or Tdap) [facility] Start: 11-26-2025 End: 11-26-2025 Patient encounter procedure 11/26/2025 8:40 AM EST Office Visit Gastroenterology [address] [place] [address] Sravani Kaye MD, PhD [address] [place] [address] IBS Gastroenterology Comment on above: IBS Start: 07-23-2025 End: 07-23-2025 Patient encounter procedure 07/23/2025 8:00 AM EDT Office Visit Gastroenterology [address] [place] [address] Sravani Kaye MD, PhD [address] [place] [address] IBS Gastroenterology Comment on above: IBS Start: 05-24-2025 Influenza vaccination Influenza Vaccine (Season Ended) [facility] Start: 04-23-2025 Influenza vaccination Flu vaccine (Season Ended) [facility] Start: 03-29-2025 End: 03-29-2025 Patient encounter procedure 03/29/2025 1:30 PM EDT Office Visit [facility] [address] [place] [phone] Kale Taveras DO [address] [address] [facility] Start: 03-11-2025 End: 03-11-2025 Patient encounter procedure 03/11/2025 10:30 AM EDT Procedure Visit [facility] [address] [phone] Kale Taveras DO [address] [address] [facility] Start: 02-25-2025 End: 02-25-2025 Nursing evaluation of patient and report 02/25/2025 11:00 AM EDT Nurse Visit General Surgery [address] [place], [place] [phone] , Nurse Gens [address] [place], [place] [phone] wound education General Surgery Comment on above: wound education Start: 02-19-2025 End: 02-19-2025 Patient encounter procedure 02/19/2025 9:00 AM EDT Office Visit COLORECTAL SURGERY [address] [place] [address] [place] [address] [place] [address] PostOp: S/p EUA and seton placement, 01/08 [facility] Comment on above: PostOp: S/p EUA and seton placement, 01/08 Start: 02-05-2025 DTaP/Tdap/Td vaccine (3 - Td or Tdap) DTaP/Tdap/Td vaccine (3 - Td or Tdap) [facility] Start: 02-05-2025 Urine microalbumin profile [facility] Start: 02-05-2025 End: 02-05-2025 Patient encounter procedure 02/05/2025 11:30 AM EDT Office Visit Pain Management [address] [address] [address] [place] [address] [place] [address] post op pain Pain Management Comment on above: post op pain Start: 01-22-2025 End: 01-22-2025 Patient encounter procedure 01/22/2025 9:00 AM EDT Office Visit Colorectal Surgery [address] [facility] [place] [address] Anand Conte APRN.[employer] [address] [place] [address] S/p EUA and seton placement Colorectal Surgery Comment on above: S/p EUA and seton placement Start: 01-21-2025 End: 01-21-2025 Patient encounter procedure 01/21/2025 4:00 PM EDT Office Visit [facility] [address] [place] [phone] Magdalene oByle PA [address] [place] [address] Arrived [facility] Comment on above: Arrived Start: 01-21-2025 End: 01-21-2026 EMG 2 Extremities EMG 2 Extremities Neurology Routine RLS (restless legs syndrome) Lumbar back pain Pain in both lower extremities Paresthesia Expected: 01/21/2025 (Approximate), Expires: 01/21/2026 [facility] Comment on above: Expected: 01/21/2025 (Approximate), Expi res: 01/21/2026 Start: 01-21-2025 End: 01-21-2026 Ferritin [Mass/volume] in Serum or Plasma Ferritin Lab Routine RLS (restless legs syndrome) Expected: 01/21/2025 (Approximate), Expires: 01/21/2026 [facility] Comment on above: Expected: 01/21/2025 (Approximate), Expi res: 01/21/2026 Start: 01-21-2025 End: 01-21-2026 Iron + transferrin + TIBC Iron + transferrin + TIBC Lab Routine RLS (restless legs syndrome) Expected: 01/21/2025 (Approximate), Expires: 01/21/2026 [facility] Work Phone: Comment on above: Expected: 01/21/2025 (Approximate), Expi res: 01/21/2026 Start: 01-21-2025 End: 01-21-2026 MR Lumbar spine WO and W contrast IV MR lumbar spine w and wo contrast Imaging Routine RLS (restless legs syndrome) Lumbar back pain Pain in both lower extremities Paresthesia Expected: 01/21/2025 (Approximate), Expires: 01/21/2026 [facility] Comment on above: Expected: 01/21/2025 (Approximate), Expi res: 01/21/2026 Start: 01-08-2025 End: 01-08-2025 Admission to same day surgery center 01/08/2025 9:50 AM EDT - 01/08/2025 3:30 PM EDT Surgery [facility] [id number] [place] [address] Shaq Th[place] [id number] [place] [address] COLECTOMY ABDOMINAL W/ PROCTECTOMY W/ ILEOSTOMY [facility] Comment on above: COLECTOMY ABDOMINAL W/ PROCTECTOMY W/ IL EOSTOMY Start: 01-08-2025 End: 01-08-2025 Colectomy tot abdl w/proctectomy w/ileostomy COLECTOMY ABDOMINAL W/ PROCTECTOMY W/ ILEOSTOMY Crohn's disease of perianal region, with fistula (HCC) 01/08/2025 9:50 AM EDT [facility] Start: 01-08-2025 Subsequent hospital visit by physician 01/08/2025 9:50 AM EDT Hospital Encounter [facility] [address] [place] [address] [place] [address] [address] [place] [phone] Crohn's disease of perianal region, with fistula (HCC) [K50.113, K60.30] [facility] Comment on above: Crohn's disease of perianal region, with fistula (HCC) [K50.113, K60.30] Start: 12-24-2024 End: 03-25-2025 Ferritin [Mass/volume] in Serum or Plasma [facility] Comment on above: Expected: 12/24/2024, Expires: Start: 12-24-2024 End: 03-25-2025 Iron and Iron binding capacity panel - Serum or Plasma [facility] Comment on above: Expected: 12/24/2024, Expires: 5 Start: 12-24-2024 End: 12-24-2024 Anesthesia consultation 12/24/2024 7:40 AM EDT PAT Pre Anesthesia [address] [place] [address] 1, Pacc Jose C [address] [place] [address] 01/08 NEEDS IN PERSON COLECTOMY ABDOMINAL W/ PROCTECTOMY W/ ILEOSTOMY [8207] - Abdomen - N/A Pre Anesthesia Comment on above: 01/08 NEEDS IN PERSON COLECTOMY ABDOMINAL W/ PROCTECTOMY W/ ILEOSTOMY [2432] - Abdomen - N/A Start: 12-19-2024 End: 12-19-2024 ambulatory 12/19/2024 11:30 AM EDT Results Only [facility] [address] [place] [address] [facility] Start: 12-18-2024 End: 03-19-2025 CBC W Auto Differential panel - Blood COMPLETE BLOOD COUNT AND DIFFERENTIAL Lab Routine Anal fistula Expected: 12/18/2024 (Approximate), Expires: 03/19/2025 [facility] Work Phone: Comment on above: Expected: 12/18/2024 (Approximate), Expi res: 03/19/2025 Start: 12-18-2024 End: 03-19-2025 Comprehensive metabolic 2000 panel - Serum or Plasma COMPREHENSIVE METABOLIC PANEL Lab Routine Anal fistula Expected: 12/18/2024 (Approximate), Expires: 03/19/2025 [facility] Comment on above: Expected: 12/18/2024 (Approximate), Expi res: 03/19/2025 Start: 12-18-2024 End: 03-19-2025 TYPE + SCREEN TYPE + SCREEN Blood Bank Routine Anal fistula Expected: 12/18/2024 (Approximate), Expires: 03/19/2025 [facility] Comment on above: Expected: 12/18/2024 (Approximate), Expi res: 03/19/2025 Start: 12-15-2024 End: 12-15-2024 Patient encounter procedure 12/15/2024 1:40 PM EDT Office Visit [facility] [address] [place] [address] Magdalene Boyle PA [address] [place] [address] [facility] Start: 09-04-2024 End: 09-04-2024 Nursing evaluation of patient and report 09/04/2024 9:15 AM EST Nurse Visit Colorectal Surgery [address] [address] Therapy, [place] [address] [place], [place] [phone] f/u Post Op Colorectal Surgery Comment on above: f/u Post Op Start: 09-04-2024 End: 09-04-2024 Patient encounter procedure 09/04/2024 9:00 AM EST Office Visit Colorectal Surgery [address] [place] [address] [place] [address] [place] [address] f/u Post Op Colorectal Surgery Comment on above: f/u Post Op Start: 07-29-2024 End: 07-29-2024 Specialty Pharmacy 07/29/2024 9:00 AM EST Specialty Pharmacy [facility] [address] [place] [id number] Pharmacist, [facility] [address] [place] [address] REFILL - Entyvio. PA exp: 07/10/2025. ND 07/22-mult attempts [facility] Comment on above: REFILL - Entyvio. PA exp: 07/10/2025. ND 07/22-mult attempts Start: 07-17-2024 End: 07-17-2024 Patient encounter procedure 07/17/2024 10:00 AM EDT Office Visit Colorectal Surgery [address] [place] [address] [place] [address] [place] [address] f/u perianal abscess Colorectal Surgery Comment on above: f/u perianal abscess Start: 07-16-2024 End: 07-16-2024 Specialty Pharmacy 07/16/2024 9:00 AM EDT Specialty Pharmacy [facility] [address] [place] [address] Pharmacist, [facility] [address] [place] [id number] REFILL - Entyvio. PA exp: 07/10/2025. ND 07/22-lvm [facility] Comment on above: REFILL - Entyvio. PA exp: 07/10/2025. ND 07/22-lvm Start: 07-13-2024 End: 07-13-2024 Specialty Pharmacy 07/13/2024 9:15 AM EDT Specialty Pharmacy [facility] [address] [place] [address] Pharmacist, [facility] [address] [place] [address] REFILL - Entyvio. PA exp: 07/10/2025. ND 07/22- [facility] Comment on above: REFILL - Entyvio. PA exp: 07/10/2025. ND 07/22- Start: 07-01-2024 End: 07-01-2024 Specialty Pharmacy 07/01/2024 9:00 AM EDT Specialty Pharmacy [facility] [address] [place] [address] [place], [place] [phone] Pharmacist, [facility] [address] [place] [address] REFILL - Entyvio. PA exp: 07/10/2024. ND 07/22-OV req for further approvals- pt aware [facility] Comment on above: REFILL - Entyvio. PA exp: 07/10/2024. ND 07/22-OV req for further approvals- pt aware Start: 06-19-2024 End: 06-19-2024 Patient encounter procedure 06/19/2024 9:45 AM EDT Office Visit Colorectal Surgery [address] [facility] [place] [address] [place] [address] [place] [address] f/u perianal abscess Colorectal Surgery Comment on above: f/u perianal abscess Start: 06-15-2024 End: 06-15-2024 Specialty Pharmacy 06/15/2024 9:00 AM EDT Specialty Pharmacy [facility] [address] [place] [address] [place] [address] Pharmacist, [facility] [address] [place] [address] [place] [address] REFILL - Entyvio. PA exp 05/24/24. ND 06/24 [facility] Comment on above: REFILL - Entyvio. PA exp 05/24/24. ND 2 Start: 06-02-2024 End: 06-02-2024 Patient encounter procedure 06/02/2024 11:40 AM EDT Office Visit Gastroenterology [facility] [address] [place], [place] [phone] [place] [address] [place], [place] [phone] f/u crohns Gastroenterology [facility] Comment on above: f/u crohns Start: 05-24-2024 Covid-19 Vaccine ( season) Covid-19 Vaccine ( season) [facility] Start: 05-24-2024 Covid-19 Vaccine ( season) Covid-19 Vaccine ( season) [facility] Start: 05-24-2024 Influenza vaccination Influenza Vaccine (#1) [facility] Start: 05-21-2024 End: 05-21-2024 ambulatory 05/21/2024 4:00 PM EDT Specialty Pharmacy [facility] [address] [place] [address] [place] [address] Pharmacist, [facility] [address] [place] [address] [place] [address] Delayed OB - Entyvio pens. dose due 06/15? PA exp 05/24 [facility] Comment on above: Delayed OB - Entyvio pens. dose due 06/15 ? PA exp 05/24 Start: 05-18-2024 End: 05-18-2024 Specialty Pharmacy 05/18/2024 9:00 AM EDT Specialty Pharmacy [facility] [address] [place] [address] Pharmacist, [facility] [address] [place] [address] [place] [address] REFILL - Entyvio. PA exp 05/24/24. ND 04. [facility] Comment on above: REFILL - Entyvio. PA exp 05/24/24. ND 090 4. Start: 04-20-2024 End: 04-20-2024 ambulatory 04/20/2024 4:00 PM EDT Specialty Pharmacy [facility] [address] [place] [phone] Pharmacist, [facility] [address] [place] [address] [place] [address] Delayed OB - Entyvio pens. dose due 04/29. PA exp 05/24/24. [facility] Comment on above: Delayed OB - Entyvio pens. dose due 7. PA exp 05/24/24. Start: 03-31-2024 End: 03-31-2024 ambulatory 03/31/2024 4:00 PM EDT Specialty Pharmacy [facility] [address] [place] [phone] Pharmacist, [facility] [address] [place] [address] [place] [address] Delayed OB - Entyvio pens. IV doses not yet scheduled as of 03/03/24 [facility] Comment on above: Delayed OB - Entyvio pens. IV doses not yet scheduled as of 03/03/24 Start: 03-25-2024 End: 03-25-2024 ambulatory 03/25/2024 7:30 AM EDT Procedure [facility] [address] [place] [phone] entyvio [facility] Comment on above: entyvio Start: 03-12-2024 End: 03-12-2024 ambulatory 03/12/2024 9:00 AM EDT Procedure [facility] [address] [place] [address] ENTYVIO [facility] Comment on above: ENTYVIO Start: 02-25-2024 End: 02-25-2024 Patient encounter procedure 02/25/2024 3:20 PM EDT Office Visit Gastroenterology [facility] [address] [place] [address] [place] [address] [place] [address] F/U OV following discharge from Hospital Gastroenterology [facility] Comment on above: F/U OV following discharge from Hospital Start: 09-23-2023 Depression Assessment Depression Assessment [facility] Start: 09-05-2023 End: 12-05-2023 CBC panel - Blood by Automated count CBC Lab Routine Anemia during in third trimester Expected: 09/05/2023, Expires: 12/05/2023 [facility] Work Phone: Comment on above: Expected: 09/05/2023, Expires: 4 Start: 09-05-2023 End: 12-05-2023 Ferritin [Mass/volume] in Serum or Plasma FERRITIN BLD Lab Routine Anemia during in third trimester Expected: 09/05/2023, Expires: 12/05/2023 [facility] Work Phone: Comment on above: Expected: 09/05/2023, Expires: 4 Start: 09-05-2023 End: 12-05-2023 Iron and Iron binding capacity panel - Serum or Plasma IRON + TIBC Lab Routine Anemia during in third trimester Expected: 09/05/2023, Expires: 12/05/2023 [facility] Work Phone: Comment on above: Expected: 09/05/2023, Expires: 4 Start: 09-05-2023 End: 09-05-2024 OBSTETRIC ULTRASOUND WHI OBSTETRIC ULTRASOUND [facility]I Anc Imaging Routine 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) Expected: 09/05/2023, Expires: 09/05/2024 [facility] Work Phone: Comment on above: Expected: 09/05/2023, Expires: 4 Start: 09-05-2023 End: 12-05-2023 SYPHILIS TOTAL W/REFLEX SYPHILIS TOTAL W/REFLEX Lab Routine care, subsequent , third trimester Expected: 09/05/2023, Expires: 12/05/2023 [facility] Work Phone: Comment on above: Expected: 09/05/2023, Expires: Start: 08-01-2023 End: 10-31-2023 CBC panel - Blood by Automated count CBC Lab Routine care, subsequent , second trimester Screening for diabetes mellitus Expected: 08/01/2023, Expires: 10/31/2023 [facility] Work Phone: Comment on above: Expected: 08/01/2023, Expires: 4 Start: 08-01-2023 End: 10-31-2023 GEST GLUC SCREEN, 1-HR, 50 GM, NON-FASTING GEST GLUC SCREEN, 1-HR, 50 GM, NON-FASTING Lab Routine care, subsequent , second trimester Screening for diabetes mellitus Expected: 08/01/2023, Expires: 10/31/2023 [facility] Work Phone: Comment on above: Expected: 08/01/2023, Expires: 4 Start: 08-01-2023 End: 10-31-2023 SYPHILIS TOTAL W/REFLEX SYPHILIS TOTAL W/REFLEX Lab Routine care, subsequent , second trimester Expected: 08/01/2023, Expires: 10/31/2023 [facility] Work Phone: Comment on above: Expected: 08/01/2023, Expires: 4 Start: 07-04-2023 End: 09-03-2023 CARRIER SCREEN, STANDARD CARRIER SCREEN, STANDARD Lab Routine care, subsequent , second trimester Expected: 07/04/2023, Expires: 09/03/2023 [facility] Work Phone: Comment on above: Expected: 07/04/2023, Expires: 3 Start: 07-04-2023 End: 09-03-2023 Chromosome 21 trisomy [Presence] in Blood or Tissue by Cytogenetics [id number] [id number] Lab Routine care, subsequent , second trimester Expected: 07/04/2023, Expires: 09/03/2023 [facility] Work Phone: Comment on above: Expected: 07/04/2023, Expires: 3 Start: 07-04-2023 End: 09-03-2023 HEMOGLOBIN EVALUATION CASCADE HEMOGLOBIN EVALUATION CASCADE Lab Routine care, subsequent , second trimester Expected: 07/04/2023, Expires: 09/03/2023 [facility] Work Phone: Comment on above: Expected: 07/04/2023, Expires: 3 Start: 07-04-2023 End: 09-03-2023 Hepatitis B virus surface Ag [Presence] in Serum HEP B SURF AG SCRN Lab Routine care, subsequent , second trimester Expected: 07/04/2023, Expires: 09/03/2023 [facility] Work Phone: Comment on above: Expected: 07/04/2023, Expires: 3 Start: 07-04-2023 End: 09-03-2023 Hepatitis C virus Ab [Presence] in Serum HEPATITIS C ANTIBODY IA WITH CONFIRMATION Lab Routine care, subsequent , second trimester Expected: 07/04/2023, Expires: 09/03/2023 [facility] Work Phone: Comment on above: Expected: 07/04/2023, Expires: 3 Start: 07-04-2023 End: 09-03-2023 HIV 1+2 Ab [Presence] in Serum or Plasma by Immunoassay HIV 1 2 COMBO(AG/AB),WITH REFLEX TO DIFFERENTIATION Lab Routine care, subsequent , second trimester Expected: 07/04/2023, Expires: 09/03/2023 [facility] Work Phone: Comment on above: Expected: 07/04/2023, Expires: 3 Start: 07-04-2023 End: 07-04-2024 OBSTETRIC ULTRASOUND WHI OBSTETRIC ULTRASOUND WHI Anc Imaging Routine care, subsequent , second trimester Expected: 07/04/2023, Expires: 07/04/2024 [facility] Work Phone: Comment on above: Expected: 07/04/2023, Expires: 4 Start: 07-04-2023 End: 09-03-2023 RUBELLA IGG AB RUBELLA IGG AB Lab Routine care, subsequent , second trimester Expected: 07/04/2023, Expires: 09/03/2023 [facility] Work Phone: Comment on above: Expected: 07/04/2023, Expires: 3 Start: 07-04-2023 End: 09-03-2023 SYPHILIS TOTAL W/REFLEX SYPHILIS TOTAL W/REFLEX Lab Routine care, subsequent , second trimester Expected: 07/04/2023, Expires: 09/03/2023 [facility] Work Phone: Comment on above: Expected: 07/04/2023, Expires: 3 Start: 07-04-2023 End: 09-03-2023 TYPE + SCREEN TYPE + SCREEN Blood Bank Routine care, subsequent , second trimester Expected: 07/04/2023, Expires: 09/03/2023 [facility] Work Phone: Comment on above: Expected: 07/04/2023, Expires: 3 Start: 05-24-2023 Covid-19 Vaccine ( season) Covid-19 Vaccine ( season) [facility] Start: 05-24-2023 Influenza vaccination [facility] Start: 04-23-2023 Influenza vaccination Flu vaccine (Season Ended) [facility] Start: 09-23-2022 DEPRESSION ASSESSMENT DEPRESSION ASSESSMENT [facility] Start: 05-24-2021 Influenza vaccination Flu vaccine (#1) [facility] Start: 04-05-2021 COVID-19 Vaccine (3 - Booster for Pfizer series) COVID-19 Vaccine (3 - Booster for Pfizer series) [facility] Start: 04-05-2021 COVID-19 VACCINE (3 - Pfizer series) COVID-19 VACCINE (3 - Pfizer series) [facility] Start: 03-08-2021 COVID-19 VACCINE (3 - Pfizer risk series) COVID-19 VACCINE (3 - Pfizer risk series) [facility] Start: 05-24-2020 Influenza vaccination [place], [place] Start: 2016 PAP TESTING PAP TESTING [facility] Start: 2016 Screening for malignant neoplasm of cervix [facility] Start: 2014 DTaP/Tdap/Td vaccine (1 - Tdap) DTaP/Tdap/Td vaccine (1 - Tdap) [place], [place] Start: 2014 DTaP/Tdap/Td vaccine (2 - Tdap) DTaP/Tdap/Td vaccine (2 - Tdap) [facility] Start: 2014 HEPATITIS A (1 of 2 - Risk 2-dose series) HEPATITIS A (1 of 2 - Risk 2-dose series) [facility] Start: 2014 Hepatitis A Vaccine (1 of 2 - Risk 2-dose series) Hepatitis A Vaccine (1 of 2 - Risk 2-dose series) [facility] Start: 2014 Hepatitis B Vaccine (1 of 3 - 19+ 3-dose series) Hepatitis B Vaccine (1 of 3 - 19+ 3-dose series) [facility] Start: 2014 SHINGRIX VACCINE (1 of 2) SHINGRIX VACCINE (1 of 2) [facility] Start: 2013 Hepatitis C screening Hepatitis C screen [facility] Start: 2013 HEPATITIS C SCREENING HEPATITIS C SCREENING [facility] Start: 2013 HIV SCREENING HIV SCREENING [facility] Start: 2011 Screening for Chlamydia trachomatis Chlamydia screen [place], [place] Start: 2010 HIV screening HIV screen [facility] Start: 2007 Depression Screen Depression Screen [facility] [facility] Start: 2006 HPV vaccine (1 - 2-dose series) HPV vaccine (1 - 2-dose series) [facility] Start: 2005 Meningococcal B Vaccine: Consider Based On Risk (1 of 4 - Increased Risk) Meningococcal B Vaccine: Consider Based On Risk (1 of 4 - Increased Risk) [facility] Start: 2005 MENINGOCOCCAL B: Consider based on risk (1 of 4 - Increased Risk Bexsero 2-dose series) MENINGOCOCCAL B: Consider based on risk (1 of 4 - Increased Risk Bexsero 2-dose series) [facility] Start: 2005 MENINGOCOCCAL B: Consider based on risk (1 of 4 - Increased Risk) MENINGOCOCCAL B: Consider based on risk (1 of 4 - Increased Risk) [facility] Start: 10-01-2001 Varicella vaccine (2 of 2 - 2-dose childhood series) Varicella vaccine (2 of 2 - 2-dose childhood series) [facility] Start: 2001 PNEUMOCOCCAL (1 - PCV) PNEUMOCOCCAL (1 - PCV) [facility] Start: 2001 Pneumococcal vaccination Pneumococcal Vaccine (1 of 2 - PCV) [facility] Start: 12-11-2000 MMR (2 of 2 - Risk 2-dose series) MMR (2 of 2 - Risk 2-dose series) [facility] Start: 12-11-2000 MMR Vaccine (2 of 2 - Risk 2-dose series) MMR Vaccine (2 of 2 - Risk 2-dose series) [facility] Start: 12-11-2000 Polio vaccine (2 of 3 - 4-dose series) Polio vaccine (2 of 3 - 4-dose series) [facility] Start: 1996 HEPATITIS A (1 of 2 - Risk 2-dose series) HEPATITIS A (1 of 2 - Risk 2-dose series) [facility] Start: 1996 Varicella vaccine (1 of 2 - 2-dose childhood series) Varicella vaccine (1 of 2 - 2-dose childhood series) [facility] [place] Start: 1995 Hepatitis C screening Hepatitis C screen [facility] Bacteria identified in Urine by Culture URINE CULTURE Microbiology Routine care, subsequent , second trimester 07/04/2023 12:05 PM EDT [facility] Work Phone: CARRIER SCREEN, STANDARD CARRIER SCREEN, STANDARD Lab Routine care, subsequent , second trimester 07/05/2023 10:02 AM [facility] Work Phone: Chromosome 21 trisom y [Presence] in Blood or Tissue by Cytogenetics [id number] PLUS Lab Routine care, subsequent , second trimester 07/05/2023 10:02 AM [facility] Work Phone: ECG COMPLETE ECG COMPLETE ECG Routine Pre-op evaluation Ordered: 12/24/2024 [facility] Work Phone: Comment on above: Ordered: 12/24/2024 HEMOGLOBIN EVALUATIO N CASCADE HEMOGLOBIN EVALUATION CASCADE Lab Routine care, subsequent , second trimester 07/05/2023 10:02 AM [facility] Work Phone: Hepatitis B virus surface Ag [Presence] in Serum HEP B SURF AG SCRN Lab Routine care, subsequent , second trimester 07/05/2023 10:02 AM [facility] Work Phone: Hepatitis C virus Ab [Presence] in Serum HEPATITIS C ANTIBODY IA WITH CONFIRMATION Lab Routine care, subsequent , second trimester 07/05/2023 10:02 AM [facility] Work Phone: HIV 1+2 Ab [Presence ] in Serum or Plasma by Immunoassay HIV 1 2 COMBO(AG/AB),WITH REFLEX TO DIFFERENTIATION Lab Routine care, subsequent , second trimester 07/05/2023 10:02 AM [facility] Work Phone: End: 01-19-2024 ILEOSCOPY ILEOSCOPY Endoscopy Routine Diarrhea, unspecified type 1 Occurrences starting 01/18/2023 until 01/19/2024 [facility] Work Phone: Comment on above: 1 Occurrences starting 01/18/2023 until 01/19/2024 RUBELLA IGG AB RUBELLA IGG AB L ab Routine care, subsequent , second trimester 07/05/2023 10:02 AM [facility] Work Phone: SYPHILIS TOTAL W/REFLEX SYPHILIS TOTAL W/REFLEX Lab Routine care, subsequent , second trimester 07/05/2023 10:02 AM [facility] Work Phone: TYPE + SCREEN TYPE + SCREEN Blood Bank Routine care, subsequent , second trimester 07/05/2023 10:02 AM [facility] Work Phone: End: 08-10-2020 Urinalysis, reflex to microscopic Urinalysis, reflex to microscopic Lab STAT One Time for 1 Occurrences starting 08/10/2020 until 08/10/2020 [place], [place] Comment on above: One Time for 1 Occurrences starting 07/24 until 08/10/2020 XR ACUTE ABD SERIES CHEST 1 VW XR ACUTE ABD SERIES CHEST 1 VW Imaging STAT 08/10/2020 9:27 AM EST [facility] Immunizations Immunization Date Immunization Notes Care Provider Elvira buckley 10-27-2023 measles, mumps and rubella virus vaccine Patricia Ramirez APRN.CNM Work Phone: [facility] 09-19-2023 respiratory syncytia l virus (RSV) vaccine, bivalent (ABRYSVO) [address] 09-19-2023 tetanus toxoid, reduced diphtheria toxoid, and acellular pertussis vaccine, adsorbed [address] 07-04-2023 influenza, injectabl e, quadrivalent, contains preservative Barrel Cutter RN [facility] 07-04-2023 influenza virus vaccine, unspecified formulation Maddie Sevilla RN [facility] 02-08-2021 COVID-19 original vaccine, age 12+ yr, monovalent (PFIZER-BIONTECH - PURPLE TOP) Zhane Quinones MD Work Phone: [facility] 01-18-2021 COVID-19 original vaccine, age 12+ yr, monovalent (PFIZER-BIONTECH - PURPLE TOP) Zhane Quinones MD Work Phone: [facility] 08-12-2015 influenza virus vaccine, whole virus Zhane Quinones MD Work Phone: [facility] 08-12-2015 influenza, whole Everett SALAM [facility] 02-05-2015 tetanus toxoid, reduced diphtheria toxoid, and acellular pertussis vaccine, adsorbed [facility] Comment on above: Reason for Medicatio n: Other (see comment) 07-09-2001 varicella virus vaccine Zhane Quinones MD Work Phone: [facility] 11-13-2000 diphtheria, tetanus toxoids and acellular pertussis vaccine, unspecified formulation Zhane Quinones MD Work Phone: [facility] 11-13-2000 DTaP, unspecified formulation Everett SALAM [facility] 11-13-2000 measles, mumps and rubella virus vaccine Zhane Quinones MD Work Phone: [facility] 11-13-2000 poliovirus vaccine, inactivated Zhane Quinones MD Work Phone: [facility] 11-13-2000 poliovirus vaccine, unspecified formulation Everett SALAM [facility] NEGATED: Highlighted row has not occurred!04-08-2014 pneumococcal polysaccharide vaccine, 23 valent [facility] NEGATED: Highlighted row has not occurred!03-20-2014 influenza, seasonal, injectable [facility] Comment on above: Result Note: obs Payers Date Payer Category Payer Self-pay 2024 Private Health Insurance [facility] [id number] 2022 Medicaid [id number] 2021 Unknown 2017 Unknown [facility] MEDICA[facility] xxxxxxxxxxx 2017-Present [phone] CLAIMS DEPARTMENT [address] [place] [address] xxxxxxxxxxx [id number] 2017 Unknown [id number] 1995 Unknown [id number] 2.16840.1.714525.3.579.2. 593 1995 Unknown [id number] 2.16840.1.872432.3.579.2. 732 1995 Unknown [id number] 2.16840.1.252274.3.579.2. 732 1995 Unknown [id number] 2.16840.1.258265.3.579.2. 727 1995 Unknown [id number] 2.16840.1.575535.3.579.2. 727 1995 Unknown [id number] 2.16840.1.655489.3.579.2. 727 1995 Unknown [id number] 2.16840.1.752308.3.579.2. 727 1995 Unknown [id number] 2.16840.1.291953.3.579.2. 727 1995 Unknown [id number] 2.16840.1.204214.3.579.2. 727 1995 Unknown [id number] 2.16840.1.889957.3.579.2. 727 1995 Unknown [id number] 2.16840.1.827609.3.579.2 1995 Unknown [id number] 2.16.840.1.814798.3.579.2 1995 Unknown [id number] 2.16.840.1.778699.3.579.2 1995 Unknown [id number] 2.16.840.1.320616.3.579.2 1995 Unknown [id number] 2.16.840.1.274151.3.579.2 1995 Unknown [id number] 2.16.840.1.552068.3.579.2 1995 Unknown [id number] 2.16.840.1.312786.3.579.2 1995 Unknown [id number] 2.16840.1.187275.3.579.2 1995 Unknown [id number] 2.16840.1.124340.3.579.2 1995 Unknown [id number] 2.16840.1.926031.3.579.2 1995 Unknown [id number] 2.16840.1.129841.3.579.2 1995 Unknown [id number] 2.16840.1.228235.3.579.2 1995 Unknown [id number] 2.16840.1.966703.3.579.2 1995 Unknown [id number] .16.840.1.020271.3.579.2 1995 Unknown [id number] .16840.1.580313.3.579.2 1995 Unknown [id number] 2.16.840.1.354587.3.579.2 1995 Unknown [id number] 2.16.840.1.578168.3.579.2 1995 Unknown [id number] 2.16.840.1.272166.3.579.2 1995 Unknown [id number] 2.16.840.1.049676.3.579.2 1995 Unknown [id number] 2.16840.1.728956.3.579.2 1995 Unknown [id number] 2.16840.1.414397.3.579.2 1995 Unknown [id number] .16840.1.386742.3.579.2 1995 Unknown [id number] 2.16840.1.465246.3.579.2 1995 Unknown [id number] .840.1.108044.3.579.2 1995 Unknown [id number] 2.840.1.090027.3.579.2 1995 Unknown [id number] .16840.1.812002.3.579.2 1995 Unknown [id number] .16840.1.285792.3.579.2 1995 Unknown [id number] 16840.1.819238.3.579.2 1995 Unknown [id number] .16840.1.521850.3.579.2 1995 Unknown [id number] .16840.1.994159.3.579.2 1995 Unknown [id number] .16840.1.495431.3.579.2 1995 Unknown [id number] .16840.1.714247.3.579.2 1995 Unknown [id number] .16.840.1.139569.3.579.2. 727 1995 Unknown [id number] 2.16.840.1.993402.3.579.2. 72 1995 Unknown [id number] 2.16.840.1.654823.3.579.2. 72 1995 Unknown [id number] 2.16840.1.499236.3.579.2. 72 1995 Unknown [id number] 2.16.840.1.533452.3.579.2. 72 1995 Unknown [id number] 2.16840.1.144093.3.579.2 72 1995 Unknown [id number] 2.16840.1.921341.3.579.2 72 1995 Unknown [id number] 840.1.809415.3.579.2 1995 Unknown [id number] 2.16840.1.225340.3.579.2 72 1995 Unknown [id number] .840.1.315842.3.579.2 1995 Unknown [id number] 2.16840.1.209441.3.579.2. 174 1995 Unknown [id number] 2840.1.198667.3.579.2 1995 Unknown [id number] 2.16840.1.320246.3.579.2. 72 1995 Unknown [id number] .16840.1.921138.3.579.2. 1995 Unknown [id number] 2.16840.1.288308.3.579.2 1995 Unknown [id number] 2.16840.1.576677.3.579.2 1995 Unknown [id number] 2.16840.1.968797.3.579.2. 627 1995 Unknown [id number] 2.16.840.1.127728.3.579.2. 1259 1995 Unknown [id number] 2.16.840.1.849707.3.579.2. 1259 1959 Unknown [id number] Unknown [id number] 2.16.840.1.120671.3.579.2. 531 Social History Date Type Detail Facility Start: 08-10-2020 End: 01-22-2025 Tobacco smoking status NHIS Former smoker [facility] [employer] Start: 01-23-2017 End: 01-23-2019 History of tobacco use Current smoker [place], [place] Start: 01-23-2017 End: 01-23-2019 History of tobacco use Cigarette Smoker [place], [place] Start: 08-10-2020 End: 07-04-2023 Cigarettes smoked current (pack per day) - Reported [facility] Start: 08-10-2020 End: 01-22-2025 Tobacco use and exposure Never used [place] Start: 08-10-2020 End: 12-25-2024 Alcohol intake Current non-drinker of alcohol (finding) [place] Start: 1995 Sex Assigned At Not on file [place] Start: 12-14-2022 End: 12-24-2022 Exposure to SARS-CoV-2 (event) Not sure [place] Exposure to SARS-CoV -2 (event) Unable to assess [place], [place] Tobacco smoking status Never [facility] Start: 03-05-2023 End: 07-04-2023 Sex Assigned At Female [facility] Start: 12-24-2022 History SDOH Alcohol Frequency 3 [facility] [email or web address] Work Phone: Start: 12-24-2022 History SDOH Alcohol Std Drinks 1 [facility] [email or web address] Work Phone: Start: 01-18-2023 End: 04-29-2023 Alcohol intake Current drinker of alcohol (finding) [facility] Start: 01-18-2023 Tobacco Comment 3 per day [facility] Start: 08-20-2018 Alcohol Comment 1 per week [facility] Start: 1995 Sex Assigned At Female [facility] Start: 12-19-2020 Gender identity Identifies as female gender (finding) [facility] Start: 12-19-2020 Sexual orientation Choose not to dis close [facility] Tobacco [facility] Comment on above: Denies Tobacco smoking status [facility] Tobacco smoking consumption unknown [facility] Start: 07-04-2023 End: 01-22-2025 Alcohol intake Ex-drinker (finding) [facility] Start: 02-13-2023 [facility] Start: 01-04-2010 End: 11-24-2024 Sex Female (finding) [facility] Has the [employer], [employer], oil, or water company threatened to shut off services in your home in past 12Mo No [facility] Work Phone: (I/We) worried erwin granados (my/our) food would run out before (I/we) got money to buy more. Never true [facility] How often to you hav e a drink containing alcohol? Never [place] [facility] Health Goals Date Patient Goal Desired Activity /State Personal health goal Personal health goal Functional Status Date Assessment Result Facility 01-14-2025 Are you deaf, or do you have serious difficulty hearing No 01/14/2025 9:39 AM Nena Hauser, SHAHBAZ No [facility] 01-14-2025 Are you blind, or do you have serious difficulty seeing, even when wearing glasses No 01/14/2025 9:39 AM Nena Hauser, SHAHBAZ No [facility] 01-14-2025 Do you have serious difficulty walking or climbing stairs No 01/14/2025 9:39 AM Nena Hauser, SHAHBAZ No [facility] 01-14-2025 Do you have difficul ty dressing or bathing No 01/14/2025 9:39 AM Nena Hauser, RN [facility] 01-03-2025 Functional Status N/A [facility] 12-30-2024 Functional Status N/A [facility] 12-23-2024 Functional Status N/A [facility] 12-18-2024 Are you deaf, or do you have serious difficulty hearing No 12/18/2024 4:33 PM EDT Maddie Wang, RN No [facility] 12-18-2024 Are you blind, or do you have serious difficulty seeing, even when wearing glasses No 12/18/2024 4:33 PM EDT Maddie Wang, RN No [facility] 12-18-2024 Do you have serious difficulty walking or climbing stairs No 12/18/2024 4:33 PM EDT Maddie Wang, RN No [facility] 12-18-2024 Do you have difficul ty dressing or bathing No 12/18/2024 4:33 PM EDT Maddie Wang, RN No [facility] 12-16-2024 Functional Status N/A [facility] 12-15-2024 Functional Status N/A [facility] 12-12-2024 Functional Status N/A [facility] 12-09-2024 Functional Status N/A [facility] 11-22-2024 Functional Status No [facility] 11-22-2024 Functional Status [facility] 11-14-2024 Functional Status N/A [facility] 10-02-2024 Functional Status N/A [facility] 07-13-2024 Functional Status N/A [facility] 06-30-2024 Functional Status N/A [facility] 04-08-2024 Functional Status N/A [facility] 03-08-2024 Functional Status N/A [facility] 03-04-2024 Functional Status N/A [facility] 01-20-2024 Are you deaf, or do you have serious difficulty hearing No 01/20/2024 5:14 PM EDT Rosina Garcia, RN No [facility] 01-20-2024 Are you blind, or do you have serious difficulty seeing, even when wearing glasses No 01/20/2024 5:14 PM EDT Rosina Garcia, SHAHBAZ No [facility] 01-20-2024 Do you have serious difficulty walking or climbing stairs No 01/20/2024 5:14 PM EDT Rosina Garcia, SHAHBAZ No [facility] 01-20-2024 Do you have difficul ty dressing or bathing No 01/20/2024 5:14 PM EDT Rosina Garcia, SHAHBAZ No [facility] 01-20-2024 Because of a physica l, mental, or emotional condition, do you have difficulty doing errands alone such as visiting a physician's office or shopping No 01/20/2024 5:14 PM EDT Rosina Garcia RN No [facility] 12-21-2023 Functional Status N/A [facility] 12-07-2023 Functional Status N/A [facility] 09-06-2023 Functional Status N/A [facility] 09-06-2023 Functional Status N/A [facility] 05-25-2023 Functional Status N/A [facility] 04-26-2023 Functional Status N/A [facility] 04-14-2023 Functional Status N/A [facility] 03-10-2023 Functional Status N/A [facility] 01-25-2023 Functional Status N/A [facility] 01-13-2023 Functional Status N/A [facility] 01-09-2023 Functional Status N/A [facility] 09-29-2022 Functional Status N/A [facility] 05-30-2022 Functional Status N/A [facility] Mental Status Date Assessment Result Facility 01-14-2025 Because of a physica l, mental, or emotional condition, do you have serious difficulty concentrating, remembering, or making decisions No 01/14/2025 9:39 AM EDT Nena Guerrero, SHAHBAZ No [facility] 12-18-2024 Because of a physica l, mental, or emotional condition, do you have serious difficulty concentrating, remembering, or making decisions No 12/18/2024 4:33 PM EDT Maddie Wang, SHAHBAZ No [facility] 01-20-2024 Because of a physica l, mental, or emotional condition, do you have serious difficulty concentrating, remembering, or making decisions No 01/20/2024 5:14 PM EDT Rosina Garcia RN No [facility] Clinical Notes 09-11-2018 to 03-02-2025 Telephone Encounter - Solis Flores RN - 03/02/2025 11:55 AM EDTTelephone Encounter - Solis Flores RN - 03/02/2025 11:55 AM EDTTelephone Encounter - Solis Flores RN - 02/25/2025 1:43 PM EDT Note Date & Type Note Facility 03-02-2025 Telephone encounter Note Called her again. No answer. Left another voice message informing her that she needs to contact the office to schedule an appointment as soon as possible for a dressing change and wound measurement. She also still needs to complete the wound vac form to possibly help her qualify for a free wound vac. Informed her that she was sent my chart messages as well regarding this information. Waiting on a return call. [facility] 03-02-2025 Miscellaneous Notes Called her again. No answer. Left another voice message informing her that she needs to contact the office to schedule an appointment as soon as possible for a dressing change and wound measurement. She also still needs to complete the wound vac form to possibly help her qualify for a free wound vac. Informed her that she was sent my chart messages as well regarding this information. Waiting on a return call. documented in this encounter [facility] 02-25-2025 Telephone encounter Note 1131 am: called patient since she still has not arrived for her appointment for education on dressing change. No answer. Left voice message to call the office back. Then called her mother. No answer. Left a voice message to call the office back since her daughter missed her appointment. Waiting on a return call to reschedule her appointment and discuss the form that she still has not completed that could qualify her for a wound vac for her wound. [facility] 02-25-2025 Miscellaneous Notes 1131 am: called patient since she still has not arrived for her appointment for education on dressing change. No answer. Left voice message to call the office back. Then called her mother. No answer. Left a voice message to call the office back since her daughter missed her appointment. Waiting on a return call to reschedule her appointment and discuss the form that she still has not completed that could qualify her for a wound vac for her wound. documented in this encounter [facility] 02-19-2025 Note HNO ID: [id number] Author: SOLIS FLORES RN Service: ? Author Type: Registered Nurse Type: Progress Notes Filed: 02/19/2025 10:29 Note Text: AMBULATORY PATIENT EDUCATION NOTE DIAGNOSIS: non healing wound INSTRUCTIONS: wet to dry dressing changes daily READINESS TO LEARN COGNITIVE ABILITY: Alert and oriented MOTIVATION TO LEARN: Eager FAMILY SUPPORT: Low - Inconsistent family involvement PHYSICAL LIMITATIONS AFFECTING LEARNING: None METHOD OF INSTRUCTION: Verbal and Written instruction - handouts provided INSTRUCTIONS REVIEWED: - discussed wet to dry dressing changes daily. Patient acknowledges and understands. They have contact phone number for further concerns and for questions. Electronically Signed By: BETY Ragland, SHAHBAZ [facility] Special[facility] Barrel Cutter [facility] 02-19-2025 History of Presen t illness Narrative AMBULATORY PATIENT EDUCATION NOTE DIAGNOSIS: non healing wound INSTRUCTIONS: wet to dry dressing changes daily READINESS TO LEARN COGNITIVE ABILITY: Alert and oriented MOTIVATION TO LEARN: Eager FAMILY SUPPORT: Low - Inconsistent family involvement PHYSICAL LIMITATIONS AFFECTING LEARNING: None METHOD OF INSTRUCTION: Verbal and Written instruction - handouts provided INSTRUCTIONS REVIEWED: - discussed wet to dry dressing changes daily. Patient acknowledges and understands. They have contact phone number for further concerns and for questions. Electronically Signed By: BETY Ragland, SHAHBAZ [facility] Specialty Barrel Cutter documented in this encounter [facility] 02-19-2025 History of Presen t illness Narrative COLORECTAL SURGERY February 19, 2025 Rola Aguilar 29 year old Chief Complaint: follow up History of Present Illness: Rola Aguilar is a 29 year old female with a history of Crohn's disease, presents to the office for a follow up evaluation after undergoing a Laparoscopic total proctocolectomy, removal of the terminal ileum with an end ileostomy, right colon, mid colon, left colon, sigmoid colon, rectum. 22 modifier for requiring a perineal proctectomy and abdominoperineal resection from below on 01/08/25 for severe perianal complex fistulizing Crohn's nonhealing decubitus wound. She was last seen in the office with Thao Conte SULFATE DRIER MACHINE OPERATOR on 01/22/25 which was notable for superficial wound dehiscence of the perineum. Items to Follow up from Thao Conte ON 01/22/25: - Evaluate abdominal and perineal healing - Discuss ostomy care and supplies - 1 month follow up with Dr. Thakkar for suture removal Today she notes that she feels well, has been eating without issue and the stoma is functioning well. PAST MEDICAL HISTORY Diagnosis Date Crohn's disease [...] Current Outpatient Medications Medication Sig Dispense Refill gabapentin (NEURONTIN) 100 mg capsule Take 100 mg by mouth daily at bedtime. enoxaparin (LOVENOX) 40 mg/0.4 mL Inject 0.4 mL subcutaneously once daily for 21 days. 8.4 mL 0 methocarbamol (ROBAXIN) 500 mg tablet Take 1 tablet by mouth every 12 hours as needed. 10 tablet 0 Bacillus coagulan-calcium carb (DIGESTIVE ADVANTAGE PROBIOTIC) 2 billion cell- 140 mg cap Take 1 capsule by mouth once daily. 30 capsule 0 acetaminophen (TYLENOL) 500 mg tablet Take 2 tablets by mouth every 6 hours. 50 tablet 0 busPIRone (BUSPAR) 10 mg tablet Take 10 mg by mouth three times a day. levETIRAcetam (KEPPRA) 500 mg tablet Take 500 mg by mouth two times a day. Magnesium 200 mg tab Take 200 mg by mouth once daily. dicyclomine HCl (BENTYL ORAL) KEPPRA 250 mg tablet Take 500 mg by mouth. ondansetron orally disintegrating (ZOFRAN ODT) 4 mg disintegrating tablet take 1 tablet by mouth every 8 hours as needed for nausea and vomiting promethazine (PHENERGAN) 25 mg tablet Take 25 mg by mouth. busPIRone (BUSPAR) 10 mg tablet metroNIDAZOLE (FLAGYL) 500 mg tablet Take 1 tablet by mouth three times a day. Take 1 tablet at 6pm, 7pm, and 11pm, the evening prior to surgery. 3 tablet 0 neomycin 500 mg tablet Take 2 tablets by mouth as directed. Take 2 tablet at 6pm, 7pm, and 11pm the evening prior to surgery. 6 tablet 0 vedolizumab (ENTYVIO PEN) 108 mg/0.68 mL [...] Other Difficulty with anesthesia No Family History Social History Tobacco Use Smoking status: Former Current packs/day: 0.50 Types: Cigarettes Smokeless tobacco: Never Tobacco comments: 3 per day Vaping Use Vaping status: Never Used Substance Use Topics Alcohol use: Not Currently Comment: 1 per week Drug use: No Physical Exam: [facility] 06/29/2024 (Approximate) General Appearance: Well appearing, alert, in no acute distress, well-hydrated, well nourished. Abdomen: soft ND NT Anorectal: External exam reveals: separation of the perineal wound with large cavitary wound with granulation tissue in the wound bed and serous drainage from the wound. Seton in place. Areas of excoriation and pyoderma surrounding. Photo uploaded in chart. see below Executive Asst present: yes The sensitive examination was discussed with the Patient or Patient's Authorized Cardiovascular Disease Specialist. As applicable, any other physician, advance practice provider, medical student, or other health professional student that will be observing or involved in the sensitive examination for educational or training purposes was discussed with the Patient or Authorized Cardiovascular Disease Specialist. The Patient or Authorized Cardiovascular Disease Specialist has agreed to proceed with the sensitive examination. (Sensitive examination includes inspection and/or palpation of the breasts, pelvis, prostate and anorectal regions) Assessment Assessment and Plan: Rola Aguilar is a 29 year old female with Crohn's disease s/p total proctocolectomy and end ileostomy 01/08/25 for severe perianal complex fistulizing Crohn's nonhealing decubitus wound. Now with dehiscence of the perineal wound without signs of active infection. Plan for packing the wound with wet to dry kerlix today. Will continue to have regular nursing visits for wound check and care, possible wound VAC placement. The wound is 14 cm long and 18 cm deep. It does not seem that this will heal without a wound VAC. We will teach her dressing changes with her mother and our wound team in the interim Medical Decision Making: Data Reviewed: Tests & Documents Reviewed/ordered: Review of prior operative reports Review of Pathology I have independently interpreted: I have discussed Rola Aguilar's treatment plan and/or results with . Shaq Thakkar MD Colorectal Surgery documented in this encounter [facility] 02-19-2025 Note HNO ID: [id number] Author: SHAQ THAKKAR MD Service: ? Author Type: Physician Type: Progress Notes Filed: 02/23/2025 10:00 Note Text: COLORECTAL SURGERY February 19, 2025 Rola Aguilar 29 year old Chief Complaint: follow up History of Present Illness: Rola Aguilar is a 29 year old female with a history of Crohn's disease, presents to the office for a follow up evaluation after undergoing a Laparoscopic total proctocolectomy, removal of the terminal ileum with an end ileostomy, right colon, mid colon, left colon, sigmoid colon, rectum. 22 modifier for requiring a perineal proctectomy and abdominoperineal resection from below on 01/08/25 for severe perianal complex fistulizing Crohn's nonhealing decubitus wound. She was last seen in the office with Thao Conte SULFATE DRIER MACHINE OPERATOR on 01/22/25 which was notable for superficial wound dehiscence of the perineum. Items to Follow up from Thao Conte ON 01/22/25: - Evaluate abdominal and perineal healing - Discuss ostomy care and supplies - 1 month follow up with Dr. Thakkar for suture removal Today she notes that she feels well, has been eating without issue and the stoma is functioning well. PAST MEDICAL HISTORY Diagnosis Date Crohn's disease [...] Current Outpatient Medications Medication Sig Dispense Refill gabapentin (NEURONTIN) 100 mg capsule Take 100 mg by mouth daily at bedtime. enoxaparin (LOVENOX) 40 mg/0.4 mL Inject 0.4 mL subcutaneously once daily for 21 days. 8.4 mL 0 methocarbamol (ROBAXIN) 500 mg tablet Take 1 tablet by mouth every 12 hours as needed. 10 tablet 0 Bacillus coagulan-calcium carb (DIGESTIVE ADVANTAGE PROBIOTIC) 2 billion cell- 140 mg cap Take 1 capsule by mouth once daily. 30 capsule 0 acetaminophen (TYLENOL) 500 mg tablet Take 2 tablets by mouth every 6 hours. 50 tablet 0 busPIRone (BUSPAR) 10 mg tablet Take 10 mg by mouth three times a day. levETIRAcetam (KEPPRA) 500 mg tablet Take 500 mg by mouth two times a day. Magnesium 200 mg tab Take 200 mg by mouth once daily. dicyclomine HCl (BENTYL ORAL) KEPPRA 250 mg tablet Take 500 mg by mouth. ondansetron orally disintegrating (ZOFRAN ODT) 4 mg disintegrating tablet take 1 tablet by mouth every 8 hours as needed for nausea and vomiting promethazine (PHENERGAN) 25 mg tablet Take 25 mg by mouth. busPIRone (BUSPAR) 10 mg tablet metroNIDAZOLE (FLAGYL) 500 mg tablet Take 1 tablet by mouth three times a day. Take 1 tablet at 6pm, 7pm, and 11pm, the evening prior to surgery. 3 tablet 0 neomycin 500 mg tablet Take 2 tablets by mouth as directed. Take 2 tablet at 6pm, 7pm, and 11pm the evening prior to surgery. 6 tablet 0 vedolizumab (ENTYVIO PEN) 108 mg/0.68 mL [...] Other Difficulty with anesthesia No Family History Social History Tobacco Use Smoking status: Former [...] soft ND NT Anorectal: External exam reveals: separation of the perineal wound with large cavitary wound with granulation tissue in the wound bed and serous drainage from the wound. Seton in place. Areas of excoriation and pyoderma surrounding. Photo uploaded in chart. see below Executive Asst present: yes The sensitive examination was discussed with the Patient or Patient's Authorized Cardiovascular Disease Specialist. As applicable, any other physician, advance practice provider, medical student, or other health professional student that will be observing or involved in the sensitive examination for educational or train (more content not included)... [facility] 02-19-2025 Note Education ([facility]) ROLA AGUILAR ([id number]) 1995 F T Date Time Provider Department 02/19/[address] [facility] Reason for Visit: Non healing surgical wound [5414] During your visit today, we recorded the following information about you: Allergies As of Date: 02/19/2025 Noted Allergy Reaction HYDROMORPHONE 05/26/2023 9 - Itching Date Reviewed: 02/19/2025 Reviewed by: Nellie Liriano MA - Fully Assessed Prescriptions as of 02/19/2025 - gabapentin (NEURONTIN) 100 mg capsule Take 100 mg by mouth daily at bedtime. - methocarbamol (ROBAXIN) 500 mg tablet Take 1 tablet by mouth every 12 hours as needed. - Bacillus coagulan-calcium carb (DIGESTIVE ADVANTAGE PROBIOTIC) 2 billion cell- 140 mg cap Take 1 capsule by mouth once daily. - acetaminophen (TYLENOL) 500 mg tablet Take 2 tablets by mouth every 6 hours. - busPIRone (BUSPAR) 10 mg tablet Take 10 mg by mouth three times a day. - levETIRAcetam (KEPPRA) 500 mg tablet Take 500 mg by mouth two times a day. - Magnesium 200 mg tab Take 200 mg by mouth once daily. - dicyclomine HCl (BENTYL ORAL) - KEPPRA [...] 11pm the evening prior to surgery. - vedolizumab (ENTYVIO PEN) 108 mg/0.68 mL pen Inject 108mg (1 pen) subcutaneously every other week. - vedolizumab (ENTYVIO PEN) 108 mg/0.68 mL pen Inject 108 mg (1 pen) subcutaneously every other week. Encounter Status:Closed by SOLIS FLORES on 02/19/25 [facility] 01-29-2025 Evaluation + Plan note Future Scheduled TestsMRI Brain w/ + w/o Contrast 01/29/25 [facility] 01-22-2025 Instructions Anand Conte APRN.[employer]ER - 01/22/2025 3:28 PM EDT We discussed your recent surgery and recovery: - You recently underwent surgery to remove diseased portions of your colon, rectum, and anus, with relocation of your ileostomy. You are now two weeks post-op. - You have a drain in place near your stoma site, which is expected to remain until the area heals from the inside out. Some drainage is normal, and you may continue to notice blood-tinged fluid. - Your perineal area is healing, but you still have stitches in place. These will likely be removed at your next follow-up appointment in about two weeks, depending on your healing progress. - You have a pressure ulcer near your perineal area, which is contributing to your discomfort. We will continue to monitor this. - Avoid heavy lifting or strenuous activity to allow your abdominal incision to heal properly. We discussed your stoma care: - You are using a convex pouch and adhesive rings to improve the seal. Continue using these supplies as they are working well for you. - You mentioned purchasing supplies on [employer] due to insurance challenges. I recommend contacting [email or web address] to check if they now accept your insurance ([employer]) for ostomy supplies. If not, [facility] may offer discounted options. - I provided you with adhesive remover, skin prep, and additional rings to assist with your stoma care. We discussed your Crohn s disease management: - You are not currently on medication for Crohn s disease. You plan to see your IBD specialist, Dr. Kaye, on July 23 to discuss starting Rinvoq and methotrexate to manage your condition and prevent antibody formation. - You are experiencing fatigue and soreness, which are normal post-surgery. These symptoms should improve over time. We discussed your diet and weight: - You have lost significant weight over the past year and currently weigh 109 lbs. - You are eating small, frequent meals, which is appropriate. Continue with [id number] foods and gradually reintroduce higher-fiber foods as tolerated. - It is normal to feel full quickly or have a reduced appetite after surgery. Focus on maintaining your nutrition with foods that are gentle on your stomach. Follow-up appointments: - Your next follow-up appointment is scheduled with Dr. Thakkar in 1 months. At this visit, your perineal stitches will likely be removed, and your healing will be reassessed. - You will also see Dr. Kaye, your IBD specialist, in June to discuss your long-term Crohn s disease management. Additional instructions: - Monitor for any signs of infection, such as fever, chills, or unusual drainage with a foul odor, and contact our office immediately if these occur. - If you have any questions or concerns before your next appointment, please reach out to our office. documented in this encounter [facility] 01-22-2025 Note HNO ID: [id number] Author: ANAND CONTE APRN.JIMMY Service: ? Author Type: Nurse Practitioner Type: Progress Notes Filed: 01/22/2025 15:41 Note Text: COLORECTAL SURGERY January 22, 2025 Rola Aguilar 29 year old Recording using [employer] software for draft documentation of the visit was discussed with the patient/authorized outreach representative; all questions welcomed and answered. Patient/authorized outreach representative agreed to proceed Chief Complaint: post operative follow up History of Present Illness: Patient is a 29-year-old female with a history of Crohn's disease, presenting for follow-up two weeks post-surgery involving the removal of diseased portions of the colon, rectum, and anus, and the relocation of her ileostomy. Patient has been managing Crohn's disease for over 10 years and has undergone two ileostomy surgeries. The first ileostomy was a diversion without resection, while the recent surgery involved the removal of diseased portions of the colon, rectum, and anus, and the relocation of the ileostomy. Prior to the recent surgery, patient had a severely prolapsed stoma, which she managed for an extended period. Since returning home, patient reports soreness, particularly in the perineal area, which makes sitting uncomfortable. She notes significant drainage from the perineal region, which she describes as bloody. She also has a drain in her abdomen near the ileostomy site. She denies experiencing fevers or chills since returning home. She is using the same stoma supplies as before the surgery and reports that managing the new stoma site has been easier than dealing with the previous prolapsed stoma. However, she notes that the new stoma location near her hip requires some adjustment. She is using a convex pouch due to significant weight loss over the past year, approximately 100 pounds, and currently weighs 109 pounds. She reports that her appetite has decreased, and she feels palomares faster. She is consuming small, frequent meals throughout the day. Patient is not currently on any medications for Crohn's disease. She was previously on Entyvio (vedolizumab), which she discontinued due to lack of efficacy and recurrent infections. She has a follow-up appointment with her IBD specialist, Dr. Kaye, on July 23 to discuss potential new treatments, including Rinvoq (upadacitinib) and methotrexate. She has not yet followed up with her GI doctor, Dr. Bhardwaj, since the procedure. Past Diagnostic Results: - Surgery (2 weeks ago): Removal of diseased portions of the colon, rectum, and anus, and relocation of ileostomy. PAST MEDICAL HISTORY Diagnosis Date Crohn's disease [...] Current Outpatient Medications Medication Sig Dispense Refill gabapentin (NEURONTIN) 100 mg capsule Take 100 mg by mouth daily at bedtime. enoxaparin (LOVENOX) 40 mg/0.4 mL Inject 0.4 mL subcutaneously once daily for 21 days. 8.4 mL 0 Bacillus coagulan-calcium carb (DIGESTIVE ADVANTAGE PROBIOTIC) 2 billion cell- 140 mg cap Take 1 capsule by mouth once daily. 30 capsule 0 acetaminophen (TYLENOL) 500 mg tablet Take 2 tablets by mouth every 6 hours. 50 tablet 0 levETIRAcetam (KEPPRA) 500 mg tablet Take 500 mg by mouth two times a day. Magnesium 200 mg tab Take 200 mg by mouth once daily. ondansetron orally disintegrating (ZOFRAN ODT) 4 mg disintegrating tablet take 1 tablet by mouth every 8 hours as needed for nausea and vomiting promethazine (PHENERGAN) 25 mg tablet Take 25 mg by mouth. methocarbamol (ROBAXIN) 500 mg tablet Take 1 tablet by mouth every 12 hours as needed. 10 tablet 0 busPIRone (BUSPAR) 10 mg tablet Take 10 mg by mouth three times a day. dicyclomine HCl (BENTYL ORAL) KEPPRA 250 mg tablet Take 500 mg by mouth. busPIRone (BUSPAR) 10 mg tablet metroNIDAZOLE (FLAGYL) 500 mg tablet Take 1 tablet by mouth three times a day. Take 1 tablet at 6pm, 7pm, and 11pm, the evening prior to surgery. 3 tablet 0 neomycin 500 mg tablet Take 2 tablets by mouth as directed. Take 2 tablet at 6pm, 7pm, and 11pm the evening prior to surgery. 6 tablet 0 vedolizumab (ENTYVIO PEN) 108 mg/0.68 mL pen Inject 108mg (1 pen) subcutaneously every other week. 1.36 (more content not included)... [facility] 01-22-2025 History of Presen t illness Narrative COLORECTAL SURGERY January 22, 2025 Rola Aguilar 29 year old Recording using [employer] software for draft documentation of the visit was discussed with the patient/authorized outreach representative; all questions welcomed and answered. Patient/authorized outreach representative agreed to proceed Chief Complaint: post operative follow up History of Present Illness: Patient is a 29-year-old female with a history of Crohn's disease, presenting for follow-up two weeks post-surgery involving the removal of diseased portions of the colon, rectum, and anus, and the relocation of her ileostomy. Patient has been managing Crohn's disease for over 10 years and has undergone two ileostomy surgeries. The first ileostomy was a diversion without resection, while the recent surgery involved the removal of diseased portions of the colon, rectum, and anus, and the relocation of the ileostomy. Prior to the recent surgery, patient had a severely prolapsed stoma, which she managed for an extended period. Since returning home, patient reports soreness, particularly in the perineal area, which makes sitting uncomfortable. She notes significant drainage from the perineal region, which she describes as bloody. She also has a drain in her abdomen near the ileostomy site. She denies experiencing fevers or chills since returning home. She is using the same stoma supplies as before the surgery and reports that managing the new stoma site has been easier than dealing with the previous prolapsed stoma. However, she notes that the new stoma location near her hip requires some adjustment. She is using a convex pouch due to significant weight loss over the past year, approximately 100 pounds, and currently weighs 109 pounds. She reports that her appetite has decreased, and she feels palomares faster. She is consuming small, frequent meals throughout the day. Patient is not currently on any medications for Crohn's disease. She was previously on Entyvio (vedolizumab), which she discontinued due to lack of efficacy and recurrent infections. She has a follow-up appointment with her IBD specialist, Dr. Kaye, on July 23 to discuss potential new treatments, including Rinvoq (upadacitinib) and methotrexate. She has not yet followed up with her GI doctor, Dr. Bhardwaj, since the procedure. Past Diagnostic Results: - Surgery (2 weeks ago): Removal of diseased portions of the colon, rectum, and anus, and relocation of ileostomy. PAST MEDICAL HISTORY Diagnosis Date Crohn's disease [...] Current Outpatient Medications Medication Sig Dispense Refill gabapentin (NEURONTIN) 100 mg capsule Take 100 mg by mouth daily at bedtime. enoxaparin (LOVENOX) 40 mg/0.4 mL Inject 0.4 mL subcutaneously once daily for 21 days. 8.4 mL 0 Bacillus coagulan-calcium carb (DIGESTIVE ADVANTAGE PROBIOTIC) 2 billion cell- 140 mg cap Take 1 capsule by mouth once daily. 30 capsule 0 acetaminophen (TYLENOL) 500 mg tablet Take 2 tablets by mouth every 6 hours. 50 tablet 0 levETIRAcetam (KEPPRA) 500 mg tablet Take 500 mg by mouth two times a day. Magnesium 200 mg tab Take 200 mg by mouth once daily. ondansetron orally disintegrating (ZOFRAN ODT) 4 mg disintegrating tablet take 1 tablet by mouth every 8 hours as needed for nausea and vomiting promethazine (PHENERGAN) 25 mg tablet Take 25 mg by mouth. methocarbamol (ROBAXIN) 500 mg tablet Take 1 tablet by mouth every 12 hours as needed. 10 tablet 0 busPIRone (BUSPAR) 10 mg tablet Take 10 mg by mouth three times a day. dicyclomine HCl (BENTYL ORAL) KEPPRA 250 mg tablet Take 500 mg by mouth. busPIRone (BUSPAR) 10 mg tablet metroNIDAZOLE (FLAGYL) 500 mg tablet Take 1 tablet by mouth three times a day. Take 1 tablet at 6pm, 7pm, and 11pm, the evening prior to surgery. 3 tablet 0 neomycin 500 mg tablet Take 2 tablets by mouth as directed. Take 2 tablet at 6pm, 7pm, and 11pm the evening prior to surgery. 6 tablet 0 vedolizumab (ENTYVIO PEN) 108 mg/0.68 mL [...] Other Difficulty with anesthesia No Family History Social History Tobacco Use Smoking status: Former Current packs/day: 0.50 Types: Cigarettes Smokeless tobacco: Never Tobacco comments: 3 per day Vaping Use Vaping status: Never Used Substance Use Topics Alcohol use: Not Currently Comment: 1 per week Drug use: No Constitutional: (-) fever, (-) chills, (+) weight loss Gastrointestinal: (-) abdominal pain, (+) decreased appetite, (+) early satiety, (+) watery stool, (+) anal drainage Skin: (+) pressure ulcer Psychiatric: (+) anxiety Physical Exam: General: awake, alert, no acute distress Abdominal: Soft, non-tender, minimal drainage from abdominal wound, stoma appears healthy appliance intact, Ariana drain present, melody present Drain and melody removed, incision well approx. Anorectal: Perineal with perineal stitches, drainage observed, and a pressure ulcer on the buttock. Seton inplace. superficial wound dehiscense. No erythema, swelling, tenderness, induration, or excoriation. - Executive Asst Present: Yes The sensitive examination was discussed with the Patient or Patient's Authorized Cardiovascular Disease Specialist. As applicable, any other physician, advance practice provider, medical student, or other health professional student that will be observing or involved in the sensitive examination for educational or training purposes was discussed with the Patient or Authorized Cardiovascular Disease Specialist. The Patient or Authorized Cardiovascular Disease Specialist has agreed to proceed with the sensitive examination. (Sensitive examination includes inspection and/or palpation of the breasts, pelvis, prostate and anorectal regions) Assessment Assessment and Plan: .1. 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 Recent ileostomy relocation and resection of diseased portions of the colon, rectum, and anus. No current biologic therapy initiated post-surgery. - Continue monitoring for signs of infection or complications. - Follow-up with IBD specialist Dr. Kaye on July 23 to discuss potential initiation of Rinvoq and methotrexate to prevent antibody formation. 2. Follow-up examination after colorectal surgery (Z09) Post-operative status post ileostomy relocation and resection of diseased portions of the colon, rectum, and anus. Patient reports soreness, particularly in the perianal region, with significant drainage. No fevers or chills reported. Stoma site well-managed with current supplies. - Removed melody and superficial drain; wound healing appropriately with expected drainage. - Advised patient on dietary modifications, including small frequent meals and gradual reintroduction of fiber. - Provided samples of adhesive remover, skin prep, and rings for stoma care. - Scheduled follow-up appointment with Dr. Bradford at [facility] on the at 0900 for suture removal. 3. Crohn's disease of perianal region with fistula (HCC) (K50.113) Chronic perianal Crohn's disease with history of perianal abscesses and seton placement. Current perianal region exhibits significant drainage and presence of a pressure ulcer. - Monitor for signs of infection or worsening drainage. - Scheduled follow-up with Dr. Bradford for suture removal and further evaluation of perianal region. Patient Overview: Patient with a history of Crohn's disease for over 10 years, presenting for follow-up after recent ileostomy surgery. This was her second ileostomy; the first involved only diversion, while the recent surgery included removal of diseased portions of the colon, rectum, and anus, and relocation of the ileostomy. She reports significant weight loss, currently weighing 109 pounds, with a loss of about 100 pounds in the last year. She gave in October 2023. She has not yet followed up with her GI doctor, Dr. Bhardwaj, since the procedure but has an upcoming appointment with IBD specialist Dr. Kaye on July 23. She is not currently on any medications for Crohn's disease but plans to discuss starting Rinvoq and methotrexate with her specialist. Patient Overview: Patient with a history of Crohn's disease for over 10 years, presenting for follow-up after recent ileostomy surgery. This was her second ileostomy; the first involved only diversion, while the recent surgery included removal of diseased portions of the colon, rectum, and anus, and relocation of the ileostomy. She reports significant weight loss, currently weighing 109 pounds, with a loss of about 100 pounds in the last year. She gave in October 2023. She has not yet followed up with her GI doctor, Dr. Bhardwaj, since the procedure but has an upcoming appointment with IBD specialist Dr. Kaye in June. She is not currently on any medications for Crohn's disease but plans to discuss starting Rinvoq and methotrexate with her specialist. Diagnostic Results: - Weight: 109 lbs Items for Follow-Up Today: - Evaluate abdominal and perineal healing - Discuss ostomy care and supplies - 1 month follow up with Dr. Thakkar for suture removal Additional Notes: - Patient reports soreness, particularly when sitting, and significant drainage from the perineal area. Seton in place. Perineal wound healing. - She is managing the new stoma site well, using similar supplies as before. - She is eating small, frequent meals and reports feeling palomares faster. - She is using a convex pouch and has been purchasing supplies from [employer] due to insurance coverage issues. Adivsed [facility] Anand Conte APRN.JIMMY Colorectal Surgery documented in this encounter [facility] 01-21-2025 History of Presen t illness Narrative Images from the original note were not included. Subjective Rola Aguilar is a 29 y.o. year old female Chief Complaint Patient presents with Seizures Past Medical History: Diagnosis Date Anxiety CD (Crohn's disease) ([facility]) Difficulty walking Headache Headache, tension-type Insomnia Memory loss Numbness Restless leg syndrome Seizures ([facility]) 11/22/24 Syncope Weakness of limb No past surgical history on file. Family History Problem Relation Name Age of Onset ADD / ADHD Mother Rashi ADD / ADHD Maternal Grandmother Natacha ADD / ADHD Paternal Grandmother Trixie Stroke Paternal Grandmother Trixie ADD / ADHD Brother Dagoberto ADD / ADHD Mother's Sister Veronica Anxiety disorder Mother's Sister Veronica Social History Tobacco Use Smoking status: Former Current packs/day: 0.25 Average packs/day: 0.3 packs/day for 3.0 years (0.8 ttl pk-yrs) Types: Cigarettes Smokeless tobacco: Never Substance Use Topics Alcohol use: Not Currently Medication Documentation Review Audit Reviewed by Missy Taylor MA (International Marketing Executive) on 01/21/25 at 1603 Medication Order Taking? Sig Documenting Provider Last Dose Status busPIRone (Buspar) 10 MG tablet [id number] Take 10 mg by mouth in the morning and 10 mg before bedtime. Historical Provider, Active levETIRAcetam (Keppra) 500 MG tablet [id number] Take 1 tablet (500 mg) by mouth in the morning and 1 tablet (500 mg) before bedtime. CHEVY Edge Active Magnesium 100 MG capsule [id number] Take 200 mg by mouth Daily Historical Provider, Active HPI Acute Neurological Problem This is a chronic problem. The current episode started more than 1 year ago. The problem has been rapidly worsening. Associated symptoms include abdominal pain, numbness and weakness. Pertinent negatives include no chest pain, coughing, diaphoresis, fever, joint swelling, nausea, vertigo, visual change or vomiting. She has tried acetaminophen, bed rest, medication and position change for the symptoms. The treatment provided mild relief. Seizures -MRI scheduled for 01/29 -sleep study on hold until she is recovered from surgery -on Keppra -denies any missed doses of medication -denies any recent seizures -last know seizure is 11/22/24 NEW: BACK and NERVE PAIN/RLS -symptoms have been present for the past couple years -had 10/24/23 and symptoms worsened -pain has recently increased after recent colon surgery on 01/08 and she has also noticed much more back pain -pain management was consulted while inpatient and she was advised to see neurology -symptoms in her legs and back are bilaterally equal -described as shooting pain in BLE -has to shake legs for relief -pain is interrupting her sleep -occasional N/T in toes -balance is ok -denies any recent falls ROS Review of Systems Constitutional: Negative for diaphoresis, fever and hot flashes. HENT: Negative for tinnitus and voice change. Eyes: Negative for photophobia and visual disturbance. Respiratory: Negative for apnea, cough and shortness of breath. Cardiovascular: Negative for chest pain and palpitations. Gastrointestinal: Positive for abdominal pain. Negative for nausea and vomiting. Musculoskeletal: Positive for back pain. Negative for joint swelling. Skin: Negative for color change and pallor. Neurological: Positive for weakness and numbness. Negative for dizziness, vertigo and syncope. Psychiatric/Behavioral: Positive for sleep disturbance. Objective Visit Vitals BP 110/70 Pulse (!) 138 Resp 16 Ht 5' 6 Wt 109 lb SpO2 98% BMI 17.59 kg/m Smoking Status Former BSA 1.52 m Neurological Exam Mental Status Awake, alert and oriented to person, place and time. Recent and remote memory are intact. Speech is normal. Language is fluent with no aphasia. Attention and concentration are normal. Fund of knowledge is appropriate for level of education. Anxious appearing but improved compared to previous visit. Cranial Nerves CN II: Visual acuity is normal. Visual weinberg full to confrontation. CN III, IV, : Extraocular movements intact bilaterally. Normal lids and orbits bilaterally. Pupils equal round and reactive to light bilaterally. CN V: Facial sensation is normal. CN VII: Full and symmetric facial movement. CN VIII: Hearing is normal. CN IX, X: Palate elevates symmetrically CN XI: Shoulder shrug strength is normal. CN XII: Tongue midline without atrophy or fasciculations. Motor Normal muscle bulk throughout. Normal muscle tone. No abnormal involuntary movements. Sensory Light touch is normal in upper and lower extremities. Temperature is normal in upper and lower extremities. Vibration is normal in upper and lower extremities. Gait Casual gait is normal including stance, stride, and arm swing. Motor Examination RUE Strength deltoid, biceps, triceps, wrist extensors, wrist extensors, wrist flexor, authorization representative strength 5/5. LUE Strength deltoid, biceps, triceps, wrist extensors, wrist extensors, wrist flexor, authorization representative strength 5/5. RLE Strength illopsoas, quadriceps, tibialis anterior, and gastrocnemius strength 5/5. LLE Strength illopsoas, quadriceps, tibialis anterior, and gastrocnemius strength 5/5. Tone Normal tone x4 extremities. Reflexes: RUE biceps reflex 2, brachioradialis reflex 2 LUE biceps reflex 2, brachioradialis reflex 2 RLE knee reflex 2, ankle reflex 2 LLE knee reflex 2, ankle reflex 2 Heart: Regular rhythm, tachycardia Assessment and Plan Diagnoses and all orders for this visit: Seizure (CMS/HCC) Sleep disturbance and fatigue Patient with history of anxiety, bipolar, Crohn's s/p ileostomy, ad perianal fistular secondary to perianal abscess was seen at [facility] 11/22/2024 for new onset seizure activity. She was intubated in the ER for airway protection and extubated 11/23/2024. MRI revealed mild changes thought to be related to seizure activity with recommendations to update brain MRI with and without contrast in 2-4 weeks. She had an LP that was negative for infectious cause and NMDA receptor antibodies negative. Continuous video EEG did not reveal any seizure activity. She was started on Keppra 500mg PO BID. She is also experiencing sleep disturbance with difficulty maintaining sleep. She is fatigued throughout the day. Repeat brain MRI is scheduled for 01/29. She is planning to schedule sleep study when she is more recovered from her recent surgery. No recurrent seizure activity, and she is tolerating keppra. NEW: Lumbar back pain Bilateral leg pain Paresthesia RLS Patient notes ongoing bilateral leg pain and paresthesia manifested as sharp shooting pains from her lumbar spine into her buttock and legs posteriorly for the past couple years. She also is experiencing increased symptoms, especially at night, that improve with movement. She may have a radicular process such as lumbosacral radiculopathy contributing to her symptoms. Her symptoms are also suspicious for RLS. She has a history of Crohn's disease and notes history of iron deficiency but is unable to tolerate oral iron supplementation. She also notes increase in back pain more recently following her multiple hospitalizations, LP, and recent surgery. Given the severity of her symptoms, I will obtain a lumbar spine MRI to evaluate for infection, bleeding, CSF leak, or degenerative changes that may be contributing to her symptoms. Will also evaluate for peripheral nerve process with BLE EMG. Testing review from 11/22/2024 Brain MRI with and without contrast: revealed small focal areas of signal intensity change right posterior parietal cortex and adjacent subcortical white matter Continuous video EEG monitoring: no seizures or epileptiform activity seen Cervical spine CT: no acute fracture or traumatic malalignment in the cervical spine Head CT and CTA: no acute intracranial process LP: NMDA antibody negative, culture no growth at 3 days PLAN Follow through with brain MRI as scheduled I will order an MRI of the lumbar spine to assess for structural changes such as degenerative disc disease, facet disease, or complication from LP that may be contributing to her symptoms. I will obtain a BLE EMG with nerve conduction studies and needle electrode exam to assess for a peripheral nerve process and help to differentiate between the above mentioned possible etiologies for the patient's symptoms and explain the findings on neurological exam. This EMG/NCS study will help determine the severity of this process, determine if the process is axon loss or demyelinating in type, determine the presence of active axon loss, and help with proper localization of this process. I will obtain blood work to assess for metabolic process that may be contributing to her symptoms. If she needs iron supplementation, consider referral to hematology. Patient notes severe anxiety and claustrophobia with MRI. I will send in valium to help her complete the MRI. Trial gabapentin 100mg PO at bedtime for neuropathic pain; will monitor OARRS closely I counseled patient on potential medication side effects OARRs reviewed Continue Keppra 500mg PO BID for seizure prevention We discussed seizure precautions, including no driving. Patient to follow up with this clinic in 6-8 weeks or sooner for new or worsening symptoms documented in this encounter [facility] 01-20-2025 Telephone encounter Note Phoned patient and gave her the below message. The patient expressed understanding. This is [facility] office calling with an appointment reminder. You are scheduled with Dr. Naik on 02/05/2025 at 11:30 am, with an arrival time of 11:15 am. At [place] medical office building room 525. -Please be advised of the following prior to your upcoming visit: -Please log into My-Chart and fill in the Pain questionnaires attached to the pre-visit as this is important to expedite your treatment plan. -Dr. Naik is an interventional pain management provider and does not take over Opioid/Narcotic pain medication regimen. -The appointment will be for consultation, any further recommendations will be provided at the end of the visit. Certain injections will require insurance approval and will be scheduled after insurance approval. -If you have been evaluated by [facility] Pain Management Provider within the last 3 years , you will need to contact their offices to address switching care if recommended. -Please bring any outside medical records to your appointment if they are not updated into the [facility] System. If you have any question regarding your appointment , please contact the office appointment desk directly to discuss. ( [facility]: [phone]) [facility] 01-20-2025 Miscellaneous Notes Phoned patient and gave her the below message. The patient expressed understanding. This is [facility] office calling with an appointment reminder. You are scheduled with Dr. Naik on 02/05/2025 at 11:30 am, with an arrival time of 11:15 am. At [facility] office building room 525. -Please be advised of the following prior to your upcoming visit: -Please log into My-Chart and fill in the Pain questionnaires attached to the pre-visit as this is important to expedite your treatment plan. -Dr. Naik is an interventional pain management provider and does not take over Opioid/Narcotic pain medication regimen. -The appointment will be for consultation, any further recommendations will be provided at the end of the visit. Certain injections will require insurance approval and will be scheduled after insurance approval. -If you have been evaluated by [facility] Pain Management Provider within the last 3 years , you will need to contact their offices to address switching care if recommended. -Please bring any outside medical records to your appointment if they are not updated into the [facility] System. If you have any question regarding your appointment , please contact the office appointment desk directly to discuss. ( [facility]: [phone]) documented in this encounter [facility] 01-14-2025 Note HNO ID: [id number] Author: CHANO SIMMONS CPhT Service: ? Author Type: Global Coordinator Type: Plan of Care Filed: 01/14/2025 16:32 Note Text: PHARMACY BEDSIDE DELIVERY SERVICE Patient Name: Rola Aguilar The marked outpatient medications were Filled at: [place] and delivered to the patient's bedside to self Medication List START taking these medications DIGESTIVE ADVANTAGE PROBIOTIC 2 billion cell- 140 mg Cap Generic drug: Bacillus coagulan-calcium carb Take 1 capsule by mouth once daily. enoxaparin 40 mg/0.4 mL Commonly known as: LOVENOX Inject 0.4 mL subcutaneously once daily for 21 days. Start taking on: January 15, 2025 methocarbamol 500 mg tablet Commonly known as: ROBAXIN Take 1 tablet by mouth every 12 hours as needed. oxyCODONE IR 5 mg immediate release tablet Commonly known as: ROXICODONE Take 1 tablet by mouth every 6 hours as needed for pain for up to 7 days. CONTINUE taking these medications acetaminophen 500 mg tablet Commonly known as: TYLENOL Take 2 tablets by mouth every 6 hours. BENTYL ORAL * busPIRone 10 mg tablet Commonly known as: BUSPAR * busPIRone 10 mg tablet Commonly known as: BUSPAR * ENTYVIO PEN 108 mg/0.68 mL pen Generic drug: vedolizumab Inject 108 mg (1 pen) subcutaneously every other week. * vedolizumab 108 mg/0.68 mL pen Commonly known as: ENTYVIO PEN Inject 108mg (1 pen) subcutaneously every other week. * KEPPRA 250 mg tablet Generic drug: levETIRAcetam * levETIRAcetam 500 mg tablet Commonly known as: KEPPRA Magnesium 200 mg Tab metroNIDAZOLE 500 mg tablet Commonly known as: FLAGYL Take 1 tablet by mouth three times a day. Take 1 tablet at 6pm, 7pm, and 11pm, the evening prior to surgery. neomycin 500 mg tablet Take 2 tablets by mouth as directed. Take 2 tablet at 6pm, 7pm, and 11pm the evening prior to surgery. ondansetron orally disintegrating 4 mg disintegrating tablet Commonly known as: ZOFRAN ODT promethazine 25 mg tablet Commonly known as: PHENERGAN * This list has 6 medication(s) that are the same as other medications prescribed for you. Read the directions carefully, and ask your doctor or other care provider to review them with you. You might also be taking other medications not listed above. If you have questions about any of your other medications, talk to the person who prescribed them or your Primary Care Provider. Chano Simmons CPhT PAGER: [phone] January 14, 2025 4:32 PM [facility] 01-14-2025 Note HNO ID: [id number] Author: LESLI WOO MD Service: Colorectal Author Type: Resident Type: Progress Notes Filed: 01/14/2025 06:33 Note Text: COLORECTAL SURGERY PROGRESS NOTE Name: Rola Aguilar Interval History: Ostomy good output Pain control was difficult yesterday Assessment: Mr. Aguilar is a 29 yo F s/p Lap total proctocolectomy with APR for crohn's proctocolitis and severe perianal CD on 01/08. Recovering appropriately, in all aspects other than pain control Plan: NEURO/PAIN: Continue current pain regimen.RESIDENTIAL REMODELING SUBCONTRACTOR down now RESP: Incentive spirometer 10 breaths/hr while awake. CARDIAC: Vitals per unit, telemetry GI:possibly GIS, Perineal wound packing with wet kerlix dressing daily and PRN, tums for indegestion : Monitor UOP. Appreciate Strict Ins AND Outs. HEM: Daily CBC ID: No indication for antibiotics. ENDO: Maintain glycemic control, BG <180 DVT PPX: Encourage mobilization, ambulation, and out of bed. SCD while in bed or sitting in a chair. Lovenox. DISPO: RNF. Possible discharge today pending that patient tolerates diet To be discussed with staff Lesli Woo MD Colorectal Surgery Surgery Blue Team [phone] weekdays. Or [phone] weeknights (6pm - 6am) and weekends for on-call surgery pager. OBJECTIVE: CONSTITUTIONAL: No acute distress NEUROLOGIC/PSYCHIATRIC: Alert LUNGS: Chest wall rising normally HEART: s1/s2 heart sounds heard ABDOMEN: Abdomen soft, appropriately tender, not distended. Abdo dressings dry Perineal wound dry and not bleeding. Approximated anteriorly, posteriorly left open with packing. Ostomy with bilious output BP 128/83 Pulse 100 Temp 36.5 ?C (97.7 ?F) (Oral) Resp 18 Ht 167.6 cm (5' 6 ) Wt 52.2 kg (115 lb) LMP 06/29/2024 (Approximate) SpO2 97% BMI 18.56 kg/m? Intake/Output Summary (Last 24 hours) at 01/14/2025 0632 Last data filed at 01/14/2025 0308 Gross per 24 hour Intake 540 ml Output 1260 ml Net -720 ml Date 01/08/25 07 - 01/09/25 0659 01/09/25 07 - 01/10/25 0659 Shift 8756-9252 5069-4796 5793-6462 24 Hour Total 0494-9245 3273-7041 9368-8415 24 Hour Total INTAKE PO 60 60 PO 60 60 IV 460 2350 731 3541 Volume (mL) (cefTRIAXone 2 g in D5W 100 mL Vial-Bag (ROCEPHIN)) 100 100 Volume (mL) (metroNIDAZOLE iv piggyback 500 mg in NaCl (iso-osmotic) 100 mL (FLAGYL)) 100 100 Volume (mL) (magnesium sulfate 2 g in NaCl 0.9% 100 mL) 10 10 Volume (mL) (albumin (5%) infusion) 250 250 500 Volume (mL) (lactated ringers iv infusion) 1000 1000 Volume (mL) (lactated ringers iv infusion) 1100 1100 Volume (mL) (lactated ringers iv infusion) 731 731 Shift Total 460 2350 731 3541 60 60 OUTPUT Urine 110 60 300 470 OR Urine Output 110 60 170 Output ( Indwelling Urinary Catheter 01/08/25 1159 [facility] Gavin 16 Fr) 300 300 Emesis 200 200 Emesis (ml) 200 200 Tubes 190 115 305 Drain/Tube Output ([REMOVED] Drain/Tube 01/08/25 1815 James Torres Medial Drain #1 01/08/25 1843) 70 70 Drain/Tube Output (Drain/Tube 01/08/25 1815 James Torres Upper Quadrant;Medial) 120 115 235 Ostomy 0 0 Output (mL) (Small Bowel Ostomy 01/08/25 RLQ) 0 0 Blood 300 300 Estimated Blood loss 300 300 Shift Total 110 440 848 8279 Weight (kg) 52.2 52.2 52.2 52.2 52.2 52.2 52.2 Current Facility-Administered Medications Medication Dose Route Frequency busPIRone 10 mg tab(s) (BUSPAR) 10 mg ORAL TID levETIRAcetam 500 mg tab(s) (KEPPRA) 500 mg ORAL BID NaCl 0.9% iv flush bag 20 mL INTRAVENOUS PRN alvimopan 12 mg cap(s) (ENTEREG) 12 mg ORAL BID ondansetron (PF) 4 mg injection (ZOFRAN) 4 mg INTRAVENOUS q 6 H PRN acetaminophen 1,000 mg tab(s) (TYLENOL) 1,000 mg ORAL q 6 H enoxaparin 40 mg injection (LOVENOX) 40 mg SUBCUTANEOUS DAILY naloxone 0.1 mg injection (NARCAN) 0.1 mg INTRAVENOUS q 2 MIN PRN lidocaine 4 % 2 patch (SALONPAS) 2 patch TRANSDERMAL DAILY AT 9 PM And lidocaine patch - REMOVE OTHER DAILY And lidocaine - VERIFY PATCH OTHER q 8 H diazePAM 1 mg tab(s) (VALIUM) 1 mg ORAL BID PRN phenol 1 spray (CHLORASEPTIC) 1 spray MUCOUS MEMBRANE (TOPICAL MOUTH AND THROAT) q 2 H PRN Or benzocaine 1 lozenge (CHOLORASEPTIC WARMING SORE THROAT) 1 lozenge MUCOUS MEMBRANE (TOPICAL MOUTH AND THROAT) q 2 H PRN hydrOXYzine HCl 10 mg tab(s) (ATARAX) 10 mg ORAL q 6 H PRN diphenhydrAMINE 25 mg capsule (BENADRYL) 25 mg ORAL q 8 H PRN oxyCODONE IR 5-10 mg tab(s) (ROXICODONE) 5-10 mg ORAL q 4 H PRN methocarbamol 500 mg tab(s) (ROBAXIN) 500 mg ORAL TID HYDROmorphone 0.3 mg injection (DILAUDID) 0.3 mg INTRAVENOUS q 3 H PRN calcium carbonate 500 mg chewable tab(s) (TUMS) 500 mg ORAL TID PRN CRP, CBC, BMP, MG, PHOS Recent Labs 01/13/25 0626 01/12/25 0441 01/11/25 1308 01/11/25 0442 01/10/25 1919 01/10/25 0454 12/18/24 0601 12/17/24 1848 01/19/24 0608 01/19/24 0607 01/18/24 1559 08/22/23 1041 08/19/23 2006 07/26/23 2040 07/05/23 1002 05/02/23 (more content not included)... [facility] 01-13-2025 Note HNO ID: [id number] Author: DAJUAN PATTON RN Service: Care Management Author Type: Registered Nurse Type: Care Mgt Progress Note Filed: 01/13/2025 07:44 Note Text: CARE MANAGEMENT PROGRESS NOTE SERVICE DATE: 01/13/2025 SERVICE TIME: 7:40 AM LOS: 5 days CM seeking home care services for nursing visits. However, with pts [employer] insurance this can be challenging, if not impossible, to secure. Over 30+ referrals placed with none accepting. Encourage medical team to provided added instruction and education as appropriate for colostomy and wound care as we may not be able to secure home care services. Pt will DC with support of her mother who is a nurse. SIGNATURE: Marlon Patton RN PATIENT NAME: Rola Aguilar DATE: January 13, 2025 TIME: 7:40 AM [facility] 01-13-2025 Note HNO ID: [id number] Author: LESLI WOO MD Service: Colorectal Author Type: Resident Type: Progress Notes Filed: 01/13/2025 06:21 Note Text: COLORECTAL SURGERY PROGRESS NOTE Name: Rola Aguilar Interval History: Ostomy good output Pain controlled Assessment: Mr. Aguilar is a 29 yo F s/p Lap total proctocolectomy with APR for crohn's proctocolitis and severe perianal CD on 01/08. Recovering appropriately, in all aspects other than pain control Plan: NEURO/PAIN: Continue current pain regimen. Continue RESIDENTIAL REMODELING SUBCONTRACTOR- APMS for assistance weaning pain RESP: Incentive spirometer 10 breaths/hr while awake. CARDIAC: Vitals per unit, telemetry GI:possibly GIS, Perineal wound packing with wet kerlix dressing daily and PRN : Monitor UOP. Appreciate Strict Ins AND Outs. HEM: Daily CBC ID: No indication for antibiotics. ENDO: Maintain glycemic control, BG <180 DVT PPX: Encourage mobilization, ambulation, and out of bed. SCD while in bed or sitting in a chair. Lovenox. DISPO: RNF. To be discussed with staff Lesli Woo MD Colorectal Surgery Surgery Blue Team [phone] weekdays. Or [phone] weeknights (6pm - 6am) and weekends for on-call surgery pager. OBJECTIVE: CONSTITUTIONAL: No acute distress NEUROLOGIC/PSYCHIATRIC: Alert LUNGS: Chest wall rising normally HEART: s1/s2 heart sounds heard ABDOMEN: Abdomen soft, appropriately tender, not distended. Abdo dressings dry Perineal wound dry and not bleeding. Approximated anteriorly, posteriorly left open with packing. Ostomy with bilious output, minimal gas BP 120/75 Pulse 89 Temp 36.8 ?C (98.2 ?F) (Oral) Resp 17 Ht 167.6 cm (5' 6 ) Wt 52.2 kg (115 lb) LMP 06/29/2024 (Approximate) SpO2 97% BMI 18.56 kg/m? Intake/Output Summary (Last 24 hours) at 01/13/2025 0620 Last data filed at 01/13/2025 0019 Gross per 24 hour Intake 3773 ml Output 530 ml Net 3243 ml Date 01/08/25699 - 01/09/25 0659 01/09/25 07 - 01/10/25 0659 Shift 8404-3755 3445-7739 1863-2333 24 Hour Total 5265-9358 1019-7748 7653-0312 24 Hour Total INTAKE PO 60 60 PO 60 60 IV 460 2350 731 3541 Volume (mL) (cefTRIAXone 2 g in D5W 100 mL Vial-Bag (ROCEPHIN)) 100 100 Volume (mL) (metroNIDAZOLE iv piggyback 500 mg in NaCl (iso-osmotic) 100 mL (FLAGYL)) 100 100 Volume (mL) (magnesium sulfate 2 g in NaCl 0.9% 100 mL) 10 10 Volume (mL) (albumin (5%) infusion) 250 250 500 Volume (mL) (lactated ringers iv infusion) 1000 1000 Volume (mL) (lactated ringers iv infusion) 1100 1100 Volume (mL) (lactated ringers iv infusion) 731 731 Shift Total 460 2350 731 3541 60 60 OUTPUT Urine 110 60 300 470 OR Urine Output 110 60 170 Output ( Indwelling Urinary Catheter 01/08/25 1159 [facility] 16 Fr) 300 300 Emesis 200 200 Emesis (ml) 200 200 Tubes 190 115 305 Drain/Tube Output ([REMOVED] Drain/Tube 01/08/25 1815 James Torres Medial Drain #1 01/08/25 1843) 70 70 Drain/Tube Output (Drain/Tube 01/08/251814 James Torres Upper Quadrant;Medial) 120 115 235 Ostomy 0 0 Output (mL) (Small Bowel Ostomy 01/08/25 RLQ) 0 0 Blood 300 300 Estimated Blood loss 300 300 Shift Total 110 880 429 1968 Weight (kg) 52.2 52.2 52.2 52.2 52.2 52.2 52.2 Current Facility-Administered Medications Medication Dose Route Frequency busPIRone 10 mg tab(s) (BUSPAR) 10 mg ORAL TID levETIRAcetam 500 mg tab(s) (KEPPRA) 500 mg ORAL BID NaCl 0.9% iv flush bag 20 mL INTRAVENOUS PRN alvimopan 12 mg cap(s) (ENTEREG) 12 mg ORAL BID ondansetron (PF) 4 mg injection (ZOFRAN) 4 mg INTRAVENOUS q 6 H PRN acetaminophen 1,000 mg tab(s) (TYLENOL) 1,000 mg ORAL q 6 H gabapentin 300 mg cap(s) (NEURONTIN) 300 mg ORAL q 8 H enoxaparin 40 mg injection (LOVENOX) 40 mg SUBCUTANEOUS DAILY naloxone 0.1 mg injection (NARCAN) 0.1 mg INTRAVENOUS q 2 MIN PRN HYDROmorphone RESIDENTIAL REMODELING SUBCONTRACTOR 0.5 mg/mL in NaCl 0.9% 100 mL INTRAVENOUS CONTINUOUS lidocaine 4 % 2 patch (SALONPAS) 2 patch TRANSDERMAL DAILY AT 9 PM And lidocaine patch - REMOVE OTHER DAILY And lidocaine - VERIFY PATCH OTHER q 8 H diazePAM 1 mg tab(s) (VALIUM) 1 mg ORAL BID PRN phenol 1 spray (CHLORASEPTIC) 1 spray MUCOUS MEMBRANE (TOPICAL MOUTH AND THROAT) q 2 H PRN Or benzocaine 1 lozenge (CHOLORASEPTIC WARMING SORE THROAT) 1 lozenge MUCOUS MEMBRANE (TOPICAL MOUTH AND THROAT) q 2 H PRN HYDROmorphone 0.5 mg/mL RESIDENTIAL REMODELING SUBCONTRACTOR CLINICIAN DOSE 0.2 mg 0.2 mg INTRAVENOUS q 6 H PRN hydrOXYzine HCl 10 mg tab(s) (ATARAX) 10 mg ORAL q 6 H PRN diphenhydrAMINE 25 mg capsule (BENADRYL) 25 mg ORAL q 8 H PRN lactated ringers iv infusion 5-30 mL/hr INTRAVENOUS CONTINUOUS CRP, CBC, BMP, MG, PHOS Recent Labs 01/12/25 0441 01/11/25 1308 01/11/25 0442 01/10/25 1919 01/10/25 0454 01/09/25 0913 12/18/24 0601 12/17/24 1848 01/19/24 0608 01/19/24 0607 01/18/24 1559 08/22/23 1041 08/19/23200507/26/23203907/05/23 1002 05/02/23 0622 05/01/23 0512 04/18/23 0549 (more content not included)... [facility] 01-12-2025 Note HNO ID: [id number] Author: RACHELL OAKLEY LSW Service: Care Management Author Type: Employment Services Director Type: Care Mgt Initial Assessment Filed: 01/12/2025 15:50 Note Text: CARE MANAGEMENT: ASSESSMENT AND DISCHARGE PLAN SERVICE DATE: January 12, 2025 SERVICE TIME: 3:30 PCP: No primary care provider on file. Primary Contact: Extended Emergency Contact Information Primary Emergency Contact: Rashi Deluca Relation: Mother Secondary Emergency Contact: Artem Marroquin [facility] Mobile Relation: Significant other Admission Status: Inpatient Insurance Provider: [facility] MEDICA[facility] Discharge Planning requested by: Per Department Practice Potential Transition Plans No Services Indicated Advance Directives Current Advance Directive: None Assistant Director Of Nursing Attempted to Assist with AD Completion: Yes Action: Education Provided Current Living Arrangements and Support Lives with: Spouse/significant other, Children Type of Residence: Private Residence (House) Support: Spouse/significant other, Parent How do you manage to accomplish the following: Independent: Ambulation, Transportation to appointments/community, Bathe/Shower, Dress, Meals/Meal Prep, Going to the bathroom, Medication Management Current Services/Equipment Current Post-Acute Service(s): DME Current DME Type: Ostomy supplies Discharge Planning Patient Goal(s): General wellness [place] Explained: [place] Given: Yes Level of Care Discussed: Home Care Are you interested in bedside delivery of your medications? Yes Discharge Planning Participant(s): Patient Patient/Family Comments: Caregiver Assessment: Caregiver is ready, willing and able to meet the patient's needs as recommended by the inter-professional team: Yes Name of Caregiver: mom Transport at Discharge: Transportation Arrangements: Car Needs Prior to Discharge: Needs Prior to Discharge: Ready for Discharge Post-Acute Discharge Plan: NA Patient is independent and lives with her SO and 2 kids. Per patient she will stay with her mom who is a nurse at [employer], she lives very close to patient. No home care accepted due to insurance - per patient she is independent with the ostomy care, the perianal wound is not packed and either way her mom is a nurse and can assist if needed. Patient has no concerns about going home. Patient does have a PCP [facility] [place] : No HCPOA paper[place]ok on file within [employer] and verified to be current as of date/time of this note Legal Next of Kin Hierarchy per [place] Revised Code: Parents Rashi [phone] Majority of Adult Siblings (consensus if possible) Nearest Blood Relative Rachell COLTEN Oakley January 12, 2025 SIGNATURE: COLTEN Henriquez PATIENT NAME: Rola Aguilar DATE: January 12, 2025 TIME: 3:43 PM [facility] 01-12-2025 Note HNO ID: [id number] Author: LESLI WOO MD Service: Colorectal Author Type: Resident Type: Progress Notes Filed: 01/12/2025 06:47 Note Text: COLORECTAL SURGERY PROGRESS NOTE Name: Rola Aguilar Mr. Aguilar is a 29 yo F s/p Lap total proctocolectomy with APR for crohn's proctocolitis and severe perianal CD on 01/08 Interval History: Ostomy 400 HR improved since AMET yesterday Pain controlled No further episodes of anxiety Assessment: Mr. Aguilar is a 29 yo F s/p Lap total proctocolectomy with APR for crohn's proctocolitis and severe perianal CD on 01/08 Plan: NEURO/PAIN: Continue current pain regimen. Continue RESIDENTIAL REMODELING SUBCONTRACTOR RESP: Incentive spirometer 10 breaths/hr while awake. CARDIAC: Vitals per unit, telemetry GI:possibly GIS, Perineal wound packing with wet kerlix dressing daily and PRN : Monitor UOP. Appreciate Strict Ins AND Outs. HEM: Daily CBC ID: No indication for antibiotics. ENDO: Maintain glycemic control, BG <180 DVT PPX: Encourage mobilization, ambulation, and out of bed. SCD while in bed or sitting in a chair. Lovenox. DISPO: RNF. To be discussed with staff Lesli Woo MD Colorectal Surgery Surgery Blue Team [phone] week. Or [phone] weeknights (6pm - 6am) and weekends for on-call surgery pager. OBJECTIVE: CONSTITUTIONAL: No acute distress NEUROLOGIC/PSYCHIATRIC: Alert LUNGS: Chest wall rising normally HEART: s1/s2 heart sounds heard ABDOMEN: Abdomen soft, appropriately tender, not distended. Abdo dressings dry Perineal wound dry and not bleeding. Approximated anteriorly, posteriorly left open with packing. Ostomy with bilious output, minimal gas BP 102/62 Pulse 96 Temp 37.3 ?C (99.1 ?F) (Oral) Resp 16 Ht 167.6 cm (5' 6 ) Wt 52.2 kg (115 lb) LMP 06/29/2024 (Approximate) SpO2 96% BMI 18.56 kg/m? Intake/Output Summary (Last 24 hours) at 01/12/2025 0643 Last data filed at 01/11/2025 2100 Gross per 24 hour Intake 420 ml Output 1410 ml Net -990 ml Date 01/08/25 07 - 01/09/25 0659 01/09/25 0700 - 01/10/25 0659 Shift 3234-6388 1263-5353 0071-7972 24 Hour Total 0512-0799 4885-6204 3055-0855 24 Hour Total INTAKE PO 60 60 PO 60 60 IV 460 2350 731 3541 Volume (mL) (cefTRIAXone 2 g in D5W 100 mL Vial-Bag (ROCEPHIN)) 100 100 Volume (mL) (metroNIDAZOLE iv piggyback 500 mg in NaCl (iso-osmotic) 100 mL (FLAGYL)) 100 100 Volume (mL) (magnesium sulfate 2 g in NaCl 0.9% 100 mL) 10 10 Volume (mL) (albumin (5%) infusion) 250 250 500 Volume (mL) (lactated ringers iv infusion) 1000 1000 Volume (mL) (lactated ringers iv infusion) 1100 1100 Volume (mL) (lactated ringers iv infusion) 731 731 Shift Total 460 2350 731 3541 60 60 OUTPUT Urine 110 60 300 470 OR Urine Output 110 60 170 Output ( Indwelling Urinary Catheter 01/08/25 1159 [facility] 16 Fr) 300 300 Emesis 200 200 Emesis (ml) 200 200 Tubes 190 115 305 Drain/Tube Output ([REMOVED] Drain/Tube 01/08/25 1815 James Torres Medial Drain #1 01/08/25 1843) 70 70 Drain/Tube Output (Drain/Tube 01/08/25 1815 James Torres Upper Quadrant;Medial) 120 115 235 Ostomy 0 0 Output (mL) (Small Bowel Ostomy 01/08/25 RLQ) 0 0 Blood 300 300 Estimated Blood loss 300 300 Shift Total 110 486 489 8923 Weight (kg) 52.2 52.2 52.2 52.2 52.2 52.2 52.2 Current Facility-Administered Medications Medication Dose Route Frequency busPIRone 10 mg tab(s) (BUSPAR) 10 mg ORAL TID levETIRAcetam 500 mg tab(s) (KEPPRA) 500 mg ORAL BID NaCl 0.9% iv flush bag 20 mL INTRAVENOUS PRN lactated ringers iv infusion 75 mL/hr INTRAVENOUS CONTINUOUS alvimopan 12 mg cap(s) (ENTEREG) 12 mg ORAL BID ondansetron (PF) 4 mg injection (ZOFRAN) 4 mg INTRAVENOUS q 6 H PRN acetaminophen 1,000 mg tab(s) (TYLENOL) 1,000 mg ORAL q 6 H gabapentin 300 mg cap(s) (NEURONTIN) 300 mg ORAL q 8 H enoxaparin 40 mg injection (LOVENOX) 40 mg SUBCUTANEOUS DAILY naloxone 0.1 mg injection (NARCAN) 0.1 mg INTRAVENOUS q 2 MIN PRN HYDROmorphone RESIDENTIAL REMODELING SUBCONTRACTOR 0.5 mg/mL in NaCl 0.9% 100 mL INTRAVENOUS CONTINUOUS lidocaine 4 % 2 patch (SALONPAS) 2 patch TRANSDERMAL DAILY AT 9 PM And lidocaine patch - REMOVE OTHER DAILY And lidocaine - VERIFY PATCH OTHER q 8 H diazePAM 1 mg tab(s) (VALIUM) 1 mg ORAL BID PRN phenol 1 spray (CHLORASEPTIC) 1 spray MUCOUS MEMBRANE (TOPICAL MOUTH AND THROAT) q 2 H PRN Or benzocaine 1 lozenge (CHOLORASEPTIC WARMING SORE THROAT) 1 lozenge MUCOUS MEMBRANE (TOPICAL MOUTH AND THROAT) q 2 H PRN methocarbamol 500 mg injection (ROBAXIN) 500 mg INTRAVENOUS q 8 H HYDROmorphone 0.5 mg/mL RESIDENTIAL REMODELING SUBCONTRACTOR CLINICIAN DOSE 0.2 mg 0.2 mg INTRAVENOUS q 6 H PRN hydrOXYzine HCl 10 mg tab(s) (ATARAX) 10 mg ORAL q 6 H PRN diphenhydrAMINE 25 mg capsule (BENADRYL) 25 mg ORAL q 8 H PRN CRP, CBC, BMP, MG, PHOS Recent Labs 01/12/25 0441 01/11/25 1308 01/11/25 0442 01/10/25 1919 01/10/25 0454 01/09/25 0913 12/18/24 0601 12/17/24 1848 01/19/24 0608 01/18 (more content not included)... [facility] 01-11-2025 Note HNO ID: [id number] Author: LESLI WOO MD Service: Colorectal Author Type: Resident Type: Progress Notes Filed: 01/11/2025 16:20 Note Text: Documentation Query Please clarify the patient's nutritional status Provider Response: Severe Protein Calorie Malnutrition based on the assessment, plan, and treatment , This document will become part of the patient's medical record. [facility] 01-11-2025 Note HNO ID: [id number] Author: LESLI WOO MD Service: Colorectal Author Type: Resident Type: Progress Notes Filed: 01/11/2025 16:19 Note Text: Documentation Query Please clarify the diagnosis associated with the clinical indicators for this patient Provider Response: Hypokalemia } This document will become part of the patient's medical record. [facility] 01-11-2025 Note HNO ID: [id number] Author: LOUANN QUINTERO MD Service: Colorectal Author Type: Resident Type: Plan of Care Filed: 01/11/2025 12:48 Note Text: Rola Shenyeni [id number] January 11, 2025 12:01 PM COLORECTAL SURGERY PLAN OF CARE Paged that patient's HR was sustaining 140-150s, previously 90s-110s. A rapid response was called. On arrival to the patient's room, she is alert, sitting up in her chair, and denies any current symptoms including chest pain, shortness of breath, palpitations, lightheadedness, or dizziness. Abdominal pain is similar to prior. Abdominal exam is unchanged (soft, appropriately tender, nonperitonitic, ostomy with stool in bag, PAGE serous and nonbloody). She is tachycardic (HR 150) and normotensive, making appropriate UOP. The tachycardia appears regular on EKG. She states that she is very overwhelmed with the number of people in the room from the rapid response and the manner with which they entered in an emergent fashion. She states that she is refusing an EKG at this time as she is too overwhelmed and didn't like the demeanor/attitude of the painting technician. She also states that she has these episodes related to her anxiety. While there likely is a significant anxiety component to her tachycardia, we would like to rule out other post-operative causes of tachycardia (cardiac, bleeding, infection, dehydration). Will plan for EKG, electrolytes, CBC, LR bolus, ativan. Patient voices understanding of the potential severity of her current tachycardia, but needs an hour or two prior to EKG and CBC. Discussed with Dr. Ariane Quintero MD PGY4 General Surgery Pager: [phone] [facility] 01-11-2025 Note HNO ID: [id number] Author: MADDIE GUERRA APRN.CNP Service: Pain Management Author Type: Nurse Practitioner Type: Plan of Care Filed: 01/11/2025 12:37 Note Text: [facility] PLAN OF CARE SERVICE DATE: 01/11/2025 SERVICE TIME: 10:26 AM ASSESSMENT Rola Aguilar is a 29 year old female who is 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 POD 3. Upon assessment, Ms. Aguilar is up to the chair. She reports improving abdominal pain today. NGT was removed and she was advanced to FLD. She is tolerating without N/V. Ostomy functioning. Dilaudid RESIDENTIAL REMODELING SUBCONTRACTOR infusing, total usage 17/30 in the past 4 hours. While in room talking with patient, RR called for sustained HR in the 140-150s. Pt upset and anxious about rapid. Emotional reassurance provided. Spoke with colorectal resident about pain management. He stated primary team is ok to take over med management on pt. Discussed recommendation for follow up with outpatient with [facility] chronic pain provider. Call for appointment. APMS will sign off and defer pain management to primary team. Please feel free to re-consult if indicated. SIGNATURE: Maddie Guerra APRN.CNP PATIENT NAME: Rola Aguilar DATE: January 11, 2025 TIME: 10:26 AM PAGER/CONTACT #: [facility] [phone] [facility] 01-11-2025 Note HNO ID: [id number] Author: LESLI WOO MD Service: Colorectal Author Type: Resident Type: Progress Notes Filed: 01/11/2025 06:38 Note Text: COLORECTAL SURGERY PROGRESS NOTE Name: Rola Aguilar Mr. Aguilar is a 29 yo F s/p Lap total proctocolectomy with APR for crohn's proctocolitis and severe perianal CD on 01/08 Interval History and Assessment: Pain control is controlled on RESIDENTIAL REMODELING SUBCONTRACTOR. NGT with bilious output 500cc Ostomy functioning with 475 output Perineal wound appropriately healing and packed posteriorly Did not move out of bed yet. - sitting up -No fevers overnight Plan: - Tylenol, RESIDENTIAL REMODELING SUBCONTRACTOR, robaxin, gabapentin- continue diet -cont NGT for now -Continue RESIDENTIAL REMODELING SUBCONTRACTOR for better pain control Perineal wound packing with wet kerlix dressing daily and PRN To be discussed with Dr. Ariane Woo MD Surgery Blue Team [phone] weekdays. Or [phone] weeknights (6pm - 6am) and weekends for on-call surgery pager. OBJECTIVE: BP 101/71 Pulse 98 Temp 37.2 ?C (99 ?F) (Oral) Resp 17 Ht 167.6 cm (5' 6 ) Wt 52.2 kg (115 lb) LMP 06/29/2024 (Approximate) SpO2 94% BMI 18.56 kg/m? Intake/Output Summary (Last 24 hours) at 01/11/2025 0634 Last data filed at 01/11/2025 0551 Gross per 24 hour Intake 3021 ml Output 3865 ml Net -844 ml Anxious, uncomfortable from NGT Abdomen soft, appropriately tender, not distended. Abdo dressings dry Perineal wound dry and not bleeding. Approximated anteriorly, posteriorly left open with packing. Ostomy with bilious output, minimal gas Date 01/08/25 07 - 01/09/25 0659 01/09/25 07 - 01/10/25 0659 Shift 2463-0456 5047-8694 1017-0332 24 Hour Total 5960-1121 1485-1223 3225-2353 24 Hour Total INTAKE PO 60 60 PO 60 60 IV 460 2350 731 3541 Volume (mL) (cefTRIAXone 2 g in D5W 100 mL Vial-Bag (ROCEPHIN)) 100 100 Volume (mL) (metroNIDAZOLE iv piggyback 500 mg in NaCl (iso-osmotic) 100 mL (FLAGYL)) 100 100 Volume (mL) (magnesium sulfate 2 g in NaCl 0.9% 100 mL) 10 10 Volume (mL) (albumin (5%) infusion) 250 250 500 Volume (mL) (lactated ringers iv infusion) 1000 1000 Volume (mL) (lactated ringers iv infusion) 1100 1100 Volume (mL) (lactated ringers iv infusion) 731 731 Shift Total 460 2350 731 3541 60 60 OUTPUT Urine 110 60 300 470 OR Urine Output 110 60 170 Output ( Indwelling Urinary Catheter 01/08/25 1159 [facility] 16 Fr) 300 300 Emesis 200 200 Emesis (ml) 200 200 Tubes 190 115 305 Drain/Tube Output ([REMOVED] Drain/Tube 01/08/25 1815 James Torres Medial Drain #1 01/08/25 1843) 70 70 Drain/Tube Output (Drain/Tube 01/08/25 1815 James Torres Upper Quadrant;Medial) 120 115 235 Ostomy 0 0 Output (mL) (Small Bowel Ostomy 01/08/25 RLQ) 0 0 Blood 300 300 Estimated Blood loss 300 300 Shift Total 110 052 539 5745 Weight (kg) 52.2 52.2 52.2 52.2 52.2 52.2 52.2 Current Facility-Administered Medications Medication Dose Route Frequency busPIRone 10 mg tab(s) (BUSPAR) 10 mg ORAL TID levETIRAcetam 500 mg tab(s) (KEPPRA) 500 mg ORAL BID NaCl 0.9% iv flush bag 20 mL INTRAVENOUS PRN lactated ringers iv infusion 75 mL/hr INTRAVENOUS CONTINUOUS alvimopan 12 mg cap(s) (ENTEREG) 12 mg ORAL BID ondansetron (PF) 4 mg injection (ZOFRAN) 4 mg INTRAVENOUS q 6 H PRN acetaminophen 1,000 mg tab(s) (TYLENOL) 1,000 mg ORAL q 6 H gabapentin 300 mg cap(s) (NEURONTIN) 300 mg ORAL q 8 H enoxaparin 40 mg injection (LOVENOX) 40 mg SUBCUTANEOUS DAILY naloxone 0.1 mg injection (NARCAN) 0.1 mg INTRAVENOUS q 2 MIN PRN HYDROmorphone RESIDENTIAL REMODELING SUBCONTRACTOR 0.5 mg/mL in NaCl 0.9% 100 mL INTRAVENOUS CONTINUOUS lidocaine 4 % 2 patch (SALONPAS) 2 patch TRANSDERMAL DAILY AT 9 PM And lidocaine patch - REMOVE OTHER DAILY And lidocaine - VERIFY PATCH OTHER q 8 H diazePAM 1 mg tab(s) (VALIUM) 1 mg ORAL BID PRN phenol 1 spray (CHLORASEPTIC) 1 spray MUCOUS MEMBRANE (TOPICAL MOUTH AND THROAT) q 2 H PRN Or benzocaine 1 lozenge (CHOLORASEPTIC WARMING SORE THROAT) 1 lozenge MUCOUS MEMBRANE (TOPICAL MOUTH AND THROAT) q 2 H PRN methocarbamol 500 mg injection (ROBAXIN) 500 mg INTRAVENOUS q 8 H HYDROmorphone 0.5 mg/mL RESIDENTIAL REMODELING SUBCONTRACTOR CLINICIAN DOSE 0.2 mg 0.2 mg INTRAVENOUS q 6 H PRN hydrOXYzine HCl 10 mg tab(s) (ATARAX) 10 mg ORAL q 6 H PRN diphenhydrAMINE 25 mg capsule (BENADRYL) 25 mg ORAL q 8 H PRN CRP, CBC, BMP, MG, PHOS Recent Labs 01/11/25 0442 01/10/25 1919 01/10/25 0454 01/09/25 0913 12/24/24 0826 12/18/24 0601 12/17/24 1848 01/19/24 0608 01/19/24 0607 01/18/24 1559 08/22/23 1041 08/19/23 2006 07/26/23 2040 07/05/23 1002 05/02/23 0622 05/01/23 0512 04/29/23 2203 04/18/23 0549 01/21/23 1101 01/20/23 0917 01/19/23 0103 CRP -- -- -- -- -- -- 14.3* -- -- 14.8* -- 2.2* 2.2* -- -- -- 4.7* < > -- -- -- WBC 8.10 9.27 5.00 10.64 8.22 < > 9.25 < > -- -- < > 5.21 6.50 < > 5.03 5.29 6.01 < > 12.77* 7.42 13.08* HB 9.3* 9.8* 6.0* 7.4* 9.3* < > 10.4* < > -- -- < > 10.3* 10.6* (more content not included)... [facility] 01-10-2025 Note HNO ID: [id number] Author: CASIMIRO CRUZ MD Service: Colorectal Author Type: Resident Type: Progress Notes Filed: 01/10/2025 08:51 Note Text: COLORECTAL SURGERY PROGRESS NOTE Name: Rola Aguilar Mr. Aguilar is a 29 yo F s/p Lap total proctocolectomy with APR for crohn's proctocolitis and severe perianal CD on 01/08 Interval History and Assessment: Pain control is suboptimal on RESIDENTIAL REMODELING SUBCONTRACTOR. N/V overnight, NGT inserted with 850cc out. Hgb decrease on morning labs. Did not move out of bed yet. Stoma with function liquid. Perineum clean Plan: - Tylenol, RESIDENTIAL REMODELING SUBCONTRACTOR, robaxin, gabapentin Buspar, Keppra, Ativan 1mg x once, valium PRN -Keep NPO, NGT - 1 uPRBC, repeat CBC after blood -Will adjust RESIDENTIAL REMODELING SUBCONTRACTOR for better pain control Perineal wound packing with wet kerlix dressing daily and PRN To be discussed with Dr. Thakkar OBJECTIVE: BP 108/66 Pulse 115 Temp 37.7 ?C (99.9 ?F) (Oral) Resp 18 Ht 167.6 cm (5' 6 ) Wt 52.2 kg (115 lb) LMP 06/29/2024 (Approximate) SpO2 97% BMI 18.56 kg/m? Intake/Output Summary (Last 24 hours) at 01/10/2025 0844 Last data filed at 01/10/2025 0622 Gross per 24 hour Intake 2380 ml Output 1810 ml Net 570 ml Anxious, uncomfortable from NGT Abdomen soft, appropriately tender, not distended. Abdo dressings dry Perineal wound dry and not bleeding. Approximated anteriorly, posteriorly left open with packing. Ostomy with bilious output, minimal gas Date 01/08/25 07 - 01/09/25 0659 01/09/25 07 - 01/10/25 0659 Shift 8342-9123 2471-6477 6342-5664 24 Hour Total 5497-8006 1073-0106 3071-4738 24 Hour Total INTAKE PO 60 60 PO 60 60 IV 460 2350 731 3541 Volume (mL) (cefTRIAXone 2 g in D5W 100 mL Vial-Bag (ROCEPHIN)) 100 100 Volume (mL) (metroNIDAZOLE iv piggyback 500 mg in NaCl (iso-osmotic) 100 mL (FLAGYL)) 100 100 Volume (mL) (magnesium sulfate 2 g in NaCl 0.9% 100 mL) 10 10 Volume (mL) (albumin (5%) infusion) 250 250 500 Volume (mL) (lactated ringers iv infusion) 1000 1000 Volume (mL) (lactated ringers iv infusion) 1100 1100 Volume (mL) (lactated ringers iv infusion) 731 731 Shift Total 460 2350 731 3541 60 60 OUTPUT Urine 110 60 300 470 OR Urine Output 110 60 170 Output ( Indwelling Urinary Catheter 01/08/25 1159 [facility] 16 Fr) 300 300 Emesis 200 200 Emesis (ml) 200 200 Tubes 190 115 305 Drain/Tube Output ([REMOVED] Drain/Tube 01/08/25 1815 James Torres Medial Drain #1 01/08/25 1843) 70 70 Drain/Tube Output (Drain/Tube 01/08/25 1815 James Torres Upper Quadrant;Medial) 120 115 235 Ostomy 0 0 Output (mL) (Small Bowel Ostomy 01/08/25 RLQ) 0 0 Blood 300 300 Estimated Blood loss 300 300 Shift Total 110 377 850 0936 Weight (kg) 52.2 52.2 52.2 52.2 52.2 52.2 52.2 Current Facility-Administered Medications Medication Dose Route Frequency busPIRone 10 mg tab(s) (BUSPAR) 10 mg ORAL TID levETIRAcetam 500 mg tab(s) (KEPPRA) 500 mg ORAL BID NaCl 0.9% iv flush bag 20 mL INTRAVENOUS PRN lactated ringers iv infusion 75 mL/hr INTRAVENOUS CONTINUOUS alvimopan 12 mg cap(s) (ENTEREG) 12 mg ORAL BID ondansetron (PF) 4 mg injection (ZOFRAN) 4 mg INTRAVENOUS q 6 H PRN acetaminophen 1,000 mg tab(s) (TYLENOL) 1,000 mg ORAL q 6 H gabapentin 300 mg cap(s) (NEURONTIN) 300 mg ORAL q 8 H enoxaparin 40 mg injection (LOVENOX) 40 mg SUBCUTANEOUS DAILY naloxone 0.1 mg injection (NARCAN) 0.1 mg INTRAVENOUS q 2 MIN PRN HYDROmorphone RESIDENTIAL REMODELING SUBCONTRACTOR 0.5 mg/mL in NaCl 0.9% 100 mL INTRAVENOUS CONTINUOUS lidocaine 4 % 2 patch (SALONPAS) 2 patch TRANSDERMAL DAILY AT 9 PM And lidocaine patch - REMOVE OTHER DAILY And lidocaine - VERIFY PATCH OTHER q 8 H diazePAM 1 mg tab(s) (VALIUM) 1 mg ORAL BID PRN phenol 1 spray (CHLORASEPTIC) 1 spray MUCOUS MEMBRANE (TOPICAL MOUTH AND THROAT) q 2 H PRN Or benzocaine 1 lozenge (CHOLORASEPTIC WARMING SORE THROAT) 1 lozenge MUCOUS MEMBRANE (TOPICAL MOUTH AND THROAT) q 2 H PRN methocarbamol 500 mg injection (ROBAXIN) 500 mg INTRAVENOUS q 8 H LORazepam 1 mg injection (ATIVAN) 1 mg INTRAVENOUS ONCE CRP, CBC, BMP, MG, PHOS Recent Labs 01/10/25 0454 01/09/25 0913 12/24/24 0826 12/18/24 0601 12/17/24 1848 01/19/24 0608 01/19/24 0607 01/18/24 1559 08/22/23 1041 08/19/23 2006 07/26/23 2040 07/05/23 1002 05/02/23 0622 05/01/23 0512 04/29/23 2203 04/18/23 0549 01/21/23 1101 01/20/23 0917 01/19/23 0103 CRP -- -- -- -- 14.3* -- -- 14.8* -- 2.2* 2.2* -- -- -- 4.7* < > -- -- -- WBC 5.00 10.64 8.22 7.78 9.25 < > -- -- < > 5.21 6.50 < > 5.03 5.29 6.01 < > 12.77* 7.42 13.08* HB 6.0* 7.4* 9.3* 8.6* 10.4* < > -- -- < > 10.3* 10.6* < > 9.9* 9.4* 11.2* < > 12.7 11.8 11.8 HCT 20.1* 24.1* 31.8* 28.1* 35.2* < > -- -- < > 31.3* 32.6* < > 31.6* 29.5* 35.6* < > 40.5 37.5 37.5 PLT 394 488* 667* 502* 645* < > -- -- < > 231 244 < > 175 214 276 < > 406* 327 380 NA 136 138 143 137 136 -- 138 -- < > 135* 133* -- 137 139 136 < > 135* (more content not included)... [facility] 01-09-2025 Note HNO ID: [id number] Author: BRANDON JACOBS MD Service: Colorectal Author Type: Fellow Type: Progress Notes Filed: 01/09/2025 08:33 Note Text: COLORECTAL SURGERY PROGRESS NOTE Name: Rola Aguilar POD# 1 s/p Lap total proctocolectomy with APR for crohn's proctocolitis and severe perianal CD. Interval History and Assessment: Pain control is suboptimal on RESIDENTIAL REMODELING SUBCONTRACTOR. On regular oxycodone at home for chronic pain. Emesis x1 in AM - reports that she has baseline nausea and occasional vomiting also at home. Currently not nauseous. Did not move out of bed yet. Stoma not functional yet. Perineum clean Plan: -Await stoma function, stomatherapy to see -Keep NPO on sips only -Will adjust RESIDENTIAL REMODELING SUBCONTRACTOR for better pain control, consider pain service consult if persistent pain -Perineal wound packing with wet kerlix dressing daily and PRN Patient seen and reviewed with Dr. Michael Thakkar OBJECTIVE: BP 120/82 Pulse 100 Temp 36.6 ?C (97.9 ?F) (Oral) Resp 16 Ht 167.6 cm (5' 6 ) Wt 52.2 kg (115 lb) LMP 06/29/2024 (Approximate) SpO2 99% BMI 18.56 kg/m? Intake/Output Summary (Last 24 hours) at 01/09/2025 0830 Last data filed at 01/09/2025 0758 Gross per 24 hour Intake 3601 ml Output 1275 ml Net 2326 ml Appears comfortable Abdomen soft, not tender, not distended. Abdo dressings dry Perineal wound dry and not bleeding. Approximated anteriorly, posteriorly left open with packing. Date 01/08/25699 - 01/09/2565801/09/25699 - 01/10/25 0659 Shift 4598-7061 7425-4238 5861-6346 24 Hour Total 6032-7893 0504-2893 5271-9489 24 Hour Total INTAKE PO 60 60 PO 60 60 IV 460 2350 731 3541 Volume (mL) (cefTRIAXone 2 g in D5W 100 mL Vial-Bag (ROCEPHIN)) 100 100 Volume (mL) (metroNIDAZOLE iv piggyback 500 mg in NaCl (iso-osmotic) 100 mL (FLAGYL)) 100 100 Volume (mL) (magnesium sulfate 2 g in NaCl 0.9% 100 mL) 10 10 Volume (mL) (albumin (5%) infusion) 250 250 500 Volume (mL) (lactated ringers iv infusion) 1000 1000 Volume (mL) (lactated ringers iv infusion) 1100 1100 Volume (mL) (lactated ringers iv infusion) 731 731 Shift Total 460 2350 731 3541 60 60 OUTPUT Urine 110 60 300 470 OR Urine Output 110 60 170 Output ( Indwelling Urinary Catheter 01/08/25 1159 [facility] Gavin 16 Fr) 300 300 Emesis 200 200 Emesis (ml) 200 200 Tubes 190 115 305 Drain/Tube Output ([REMOVED] Drain/Tube 01/08/25 1815 James Torres Medial Drain #1 01/08/25 1843) 70 70 Drain/Tube Output (Drain/Tube 01/08/25 1815 James Torres Upper Quadrant;Medial) 120 115 235 Ostomy 0 0 Output (mL) (Small Bowel Ostomy 01/08/25 RLQ) 0 0 Blood 300 300 Estimated Blood loss 300 300 Shift Total 110 221 865 7695 Weight (kg) 52.2 52.2 52.2 52.2 52.2 52.2 52.2 Current Facility-Administered Medications Medication Dose Route Frequency busPIRone 10 mg tab(s) (BUSPAR) 10 mg ORAL TID levETIRAcetam 500 mg tab(s) (KEPPRA) 500 mg ORAL BID NaCl 0.9% iv flush bag 20 mL INTRAVENOUS PRN lactated ringers iv infusion 75 mL/hr INTRAVENOUS CONTINUOUS alvimopan 12 mg cap(s) (ENTEREG) 12 mg ORAL BID ondansetron (PF) 4 mg injection (ZOFRAN) 4 mg INTRAVENOUS q 6 H PRN acetaminophen 1,000 mg tab(s) (TYLENOL) 1,000 mg ORAL q 6 H gabapentin 300 mg cap(s) (NEURONTIN) 300 mg ORAL q 8 H enoxaparin 40 mg injection (LOVENOX) 40 mg SUBCUTANEOUS DAILY naloxone 0.1 mg injection (NARCAN) 0.1 mg INTRAVENOUS q 2 MIN PRN NaCl 0.9% iv infusion 5-30 mL/hr INTRAVENOUS CONTINUOUS HYDROmorphone RESIDENTIAL REMODELING SUBCONTRACTOR 0.5 mg/mL in NaCl 0.9% 100 mL INTRAVENOUS CONTINUOUS lidocaine 4 % 2 patch (SALONPAS) 2 patch TRANSDERMAL DAILY AT 9 PM And lidocaine patch - REMOVE OTHER DAILY And lidocaine - VERIFY PATCH OTHER q 8 H diazePAM 1 mg tab(s) (VALIUM) 1 mg ORAL BID PRN CRP, CBC, BMP, MG, PHOS Recent Labs 12/24/24 0826 12/18/24 0601 12/17/24 1848 01/19/24 0608 01/19/24 0607 01/18/24 1559 08/22/23 1041 08/19/23 2006 07/26/23 2040 07/05/23 1002 05/02/23 0622 05/01/23 0512 04/29/23 2203 04/18/23 0549 01/21/23 1101 01/20/23 0917 01/19/23 0103 CRP -- -- 14.3* -- -- 14.8* -- 2.2* 2.2* -- -- -- 4.7* < > -- -- -- WBC 8.22 7.78 9.25 4.33 -- -- < > 5.21 6.50 < > 5.03 5.29 6.01 < > 12.77* 7.42 13.08* HB 9.3* 8.6* 10.4* 10.2* -- -- < > 10.3* 10.6* < > 9.9* 9.4* 11.2* < > 12.7 11.8 11.8 HCT 31.8* 28.1* 35.2* 32.7* -- -- < > 31.3* 32.6* < > 31.6* 29.5* 35.6* < > 40.5 37.5 37.5 PLT 667* 502* 645* 324 -- -- < > 231 244 < > 175 214 276 < > 406* 327 380 NA 143 137 136 -- 138 -- < > 135* 133* -- 137 139 136 < > 135* 136 136 K 3.7 3.6* 3.4* -- 4.2 -- < > 3.6* 3.7 -- 4.4 3.8 3.7 < > 4.0 4.3 4.1 CHLOR 107 103 101 -- 104 -- < > 103 102 -- 105 108* 102 < > 100 102 98 CO2 22 23 22 -- 21* -- < > 18* 19* -- 18* 18* 21* < > 19* 19* 24 BUN 9 5* 4* -- 6* -- < > 6* 6* -- 9 6* 8 < > 22* 16 15 CREAT 0.63 0.75 0.70 -- 0.61 -- < > 0.52* 0.57* -- 0.70 0.65 0.65 < > 0.70 0.67 0.72 GLUC 56* 90 77 -- 124* (more content not included)... [facility] 01-08-2025 Note HNO ID: [id number] Author: SOHEILA SANCHEZ MD Service: Colorectal Author Type: Resident Type: Plan of Care Filed: 01/08/2025 21:08 Note Text: COLORECTAL SURGERY POST OPERATIVE CHECK Patient Name: Rola Aguilar Date: January 08, 2025 Procedure: DLI takedown and EI formation, lap total proctocolectomy and APR, insertion of seton into left anterolateral fistula Interval: - No acute postoperative events - Arrived to RNF with significant pain and anxiety - Reports pain is not well controlled - Currently NPO - Adequate postoperative UOP, Gavin in place - Reports shortness of breath, attributed to anxiety and pain PHYSICAL EXAMINATION: BP 107/75 Pulse 95 Temp (Src) 98.2 (Oral) Resp 18 Ht 5' 6 (1.68m) Wt 115 lb (52.2kg) SpO2 100% LMP 06/29/2024 BMI 18.57 kg/(m2). O2 Therapy: Room Air General: Resting in bed. Appears anxious HEENT: Normocephalic. Atraumatic. Lungs: Symmetric chest rise. Abdomen: Soft, appropriately tender, nondistended. No rebound, guarding, or rigidity. Incisions: Dressing intact with minimal strikethrough. Stoma pink healthy, no output. PAGE drain x1 SS Extremities: Warm and well-perfused. No gross deformity. No lower extremity edema. Neuro: Alert and oriented. Moves all extremities. ASSESSMENT AND PLAN This is a 29 year old year old female who is POD 0 s/p DLI takedown and EI formation, lap total proctocolectomy and APR, insertion of seton into left anterolateral fistula. Patient is found to be afebrile and hemodynamically stable. Pain not adequately controlled. Currently recovering on RNF. Continue multimodal pain control. One time dose of atarax and robaxin. NPO, mIVF Monitor PAGE output Monitor gavin output, strict I/O Encourage IS Soheila Sanchez MD General Surgery Resident, PGY-1 01/08/2025 9:03 PM [facility] 01-08-2025 Note HNO ID: [id number] Author: DINAH ERNST APRN.CRNA Service: Anesthesiology Author Type: Nurse Billing Machine Operator Type: Anesthesia Procedure Notes Filed: 01/08/2025 12:07 Note Text: ANESTHESIOLOGY PROCEDURE NOTE PIV General Information Procedure Start Time/Medication Administration: 01/08/2025 12:06 PM Procedure End Time: 01/08/2025 12:06 PM Patient Location: OR Staffing Anesthesiologist: Delfina Norwood MD COMPUTER TECHNICAL SPECIALIST: Dinah Ernst APRN.COMPUTER TECHNICAL SPECIALIST Performed by: RAÚL Preparation Sterility Preparation: hand hygiene performed prior to procedure, surgical cap used, mask used, skin prep agent completely dried prior to procedure Site Prep: alcohol Procedure Details Indication: need for IV access Needle Size/Type: 18 gauge angiocath Orientation: Right Location: Forearm Imaging Guidance Used: No SIGNATURE: Dinah Ernst APRN.COMPUTER TECHNICAL SPECIALIST PATIENT NAME: Rola Aguilar DATE: January 08, 2025 TIME: 12:06 PM CSN: [id number] [facility] 01-08-2025 Note HNO ID: [id number] Author: DINAH ERNST APRN.CRNA Service: Anesthesiology Author Type: Nurse Billing Machine Operator Type: Anesthesia Procedure Notes Filed: 01/08/2025 13:17 Note Text: ANESTHESIOLOGY PROCEDURE NOTE Airway General Information Procedure Start Time/Medication Administration: 01/08/2025 11:40 AM Procedure End Time: 01/08/2025 11:40 AM Patient location during procedure: OR Timeout Performed Pre-procedure: timeout performed Consent Obtained: Yes Patient identity confirmed: arm band, care bioinformatics team member and patient Staffing Anesthesiologist: Delfina Norwood MD COMPUTER TECHNICAL SPECIALIST: Dinah Ernst APRN.COMPUTER TECHNICAL SPECIALIST Performed by: other anesthesia staff Indications and Patient Condition Indications for airway management: anesthesia Preoxygenated: yes anesthesia circuit Patient position: sniffing Method: asleep Final Airway Details Final airway type: endotracheal airway Final Endotracheal Airway: ETT Cuffed: yes Successful intubation technique: video laryngoscopy Devices used: Juarez (elective VL) Endotracheal tube insertion site: oral Blade: Chantelle Blade size: #3 ETT size (mm): 7.0 Measured from: lips Measurement (cm): 21 Placement verified by: capnometry Cormack-Lehane Classification: grade I - full view of glottis Number of attempts at approach: 1 Failed airway: no Unrecognized esophageal intubation: no Comments ETT placed by oCby Mitchell MS4 SIGNATURE: Dinah Ernst APRN.COMPUTER TECHNICAL SPECIALIST PATIENT NAME: Rola Aguilar DATE: January 08, 2025 TIME: 12:04 PM CSN: [id number] [facility] 01-04-2025 Hospital Discharg e instructions Patient Education 01/03/2025 23:40:18 Chronic Pain, Adult Chronic Pain, Adult Chronic pain is a type of pain that lasts or keeps coming back for at least 3 6 months. You may have headaches, pain in the abdomen, or pain in other areas of the body. Chronic pain may be related to an illness, injury, or a health condition. Sometimes, the cause of chronic pain is not known. Chronic pain can make it hard for you to do daily activities. If it is not treated, chronic pain can lead to anxiety and depression. Treatment depends on the cause of your pain and how severe it is. You may need to work with a pain specialist to come up with a treatment plan. Many people benefit from two or more types of treatment to control their pain. Follow these instructions at home: Treatment plan Follow your treatment plan as told by your health care provider. This may include: Gentle, regular exercise. Eating a healthy diet that includes foods such as vegetables, fruits, fish, and lean meats. Mental health therapy (cognitive or behavioral therapy) that changes the way you think or act in response to the pain. This may help improve how you feel. Doing physical therapy exercises to improve movement and strength. Meditation, yoga, acupuncture, or massage therapy. Using the oils from plants in your environment or on your skin (aromatherapy). Other treatments may include: Ovdd-eos-kthwsui or prescription medicines. Color, light, or sound therapy. Local electrical stimulation. The electrical pulses help to relieve pain by temporarily stopping the nerve impulses that cause you to feel pain. Injections. These deliver numbing or pain-relieving medicines into the spine or the area of pain. Medicines Take cscl-vkm-kkkfhax and prescription medicines only as told by your health care provider. Ask your health care provider if the medicine prescribed to you: ?Requires you to avoid driving or using machinery. ?Can cause constipation. You may need to take these actions to prevent or treat constipation: ?Drink enough fluid to keep your urine pale yellow. ?Take fnhv-sue-hvzormu or prescription medicines. ?Eat foods that are high in fiber, such as beans, whole grains, and fresh fruits and vegetables. ?Limit foods that are high in fat and processed sugars, such as fried or sweet foods. Lifestyle Ask your health care provider whether you should keep a pain diary. Your health care provider will tell you what information to write in the diary. This may include: ?When you have pain. ?What the pain feels like. ?How medicines and other behaviors or treatments help to reduce the pain. Consider talking with a mental health care provider about how to help manage chronic pain. Consider joining a chronic pain support group. Try to control or lower your stress levels. Talk with your health care provider about ways to do this. General instructions Learn as much as you can about how to manage your chronic pain. Ask your health care provider if an intensive pain rehabilitation program or a chronic pain specialist would be helpful. Check your pain level as told by your health care provider. Ask your health care provider if you should use a pain scale. Contact a health care provider if: Your pain is not controlled with treatment. You have new pain. You have side effects from pain medicine. You feel weak or you have trouble doing your normal activities. You have trouble sleeping or you develop confusion. You lose feeling or have numbness in your body. You lose control of your bowels or bladder. Get help right away if: Your pain suddenly gets much worse. You develop chest pain. You have trouble breathing or shortness of breath. You faint, or another person sees you faint. These symptoms may be an emergency. Get help right away. Call 911. Do not wait to see if the symptoms will go away. Do not drive yourself to the hospital. Also, get help right away if: You have thoughts about hurting yourself or others. Take one of these steps if you feel like you may hurt yourself or others, or have thoughts about taking your own life: Go to your nearest emergency room. Call 911. Call the National Suicide Prevention Lifeline at or 847. This is open 24 hours a day. Text the Crisis Text Line at 186003. This information is not intended to replace advice given to you by your health care provider. Make sure you discuss any questions you have with your health care provider. Document Revised: 05/01/2023 Document Reviewed: 04/03/2023 [place] Patient Education 2023 [employer]. Follow Up Care 01/03/2025 21:14:37 With:. [facility] Address: [place] [address] [facility] (1) When:01/06/2025 Comments:Call the office of your primary care doctor to arrange for follow-up within the above-stated timeframe. Follow-up with your primary care doctor about this ED visit. You should review your labs, imaging, and diagnoses from this ED visit with your primary care physician. There are occasionally non-emergent findings that require additional follow-up after your ED visit. If you were prescribed medications you should discuss possible side-effects and drug interactions with your pharmacist. Call 911 or go to the nearest Emergency Department if you develop any new or worsening symptoms.Seek immediate medical attention if you develop:worsening abdominal pain, new or worsening nausea, new or worsening vomiting, new or worsening diarrhea, chest pain, shortness of breath, pain with urination, problems urinating, fever, chills, weakness, or any new or worsening symptoms.Follow-up with your surgeon at the [facility] 01-04-2025 Note ED Patient Education Note Mental and Behavioral Health Chronic Pain, Adult Chronic pain is a type of pain that lasts or keeps coming back for at least 3?6 months. You may have headaches, pain in the abdomen, or pain in other areas of the body. Chronic pain may be related to an illness, injury, or a health condition. Sometimes, the cause of chronic pain is not known. Chronic pain can make it hard for you to do daily activities. If it is not treated, chronic pain can lead to anxiety and depression. Treatment depends on the cause of your pain and how severe it is. You may need to work with a pain specialist to come up with a treatment plan. Many people benefit from two or more types of treatment to control their pain. Follow these instructions at home: Treatment plan Follow your treatment plan as told by your health care provider. This may include: ??? Gentle, regular exercise. ??? Eating a healthy diet that includes foods such as vegetables, fruits, fish, and lean meats. ??? Mental health therapy (cognitive or behavioral therapy) that changes the way you think or act in response to the pain. This may help improve how you feel. ??? Doing physical therapy exercises to improve movement and strength. ??? Meditation, yoga, acupuncture, or massage therapy. ??? Using the oils from plants in your environment or on your skin (aromatherapy). Other treatments may include: ??? Ovis-oro-ghwuxri or prescription medicines. ??? Color, light, or sound therapy. ??? Local electrical stimulation. The electrical pulses help to relieve pain by temporarily stopping the nerve impulses that cause you to feel pain. ??? Injections. These deliver numbing or pain-relieving medicines into the spine or the area of pain. Medicines ??? Take wwcg-vly-wobvpnn and prescription medicines only as told by your health care provider. ??? Ask your health care provider if the medicine prescribed to you: ? Requires you to avoid driving or using machinery. ? Can cause constipation. You may need to take these actions to prevent or treat constipation: ? Drink enough fluid to keep your urine pale yellow. ? Take icjl-cxn-cezzmzb or prescription medicines. ? Eat foods that are high in fiber, such as beans, whole grains, and fresh fruits and vegetables. ? Limit foods that are high in fat and processed sugars, such as fried or sweet foods. Lifestyle ??? Ask your health care provider whether you should keep a pain diary. Your health care provider will tell you what information to write in the diary. This may include: ? When you have pain. ? What the pain feels like. ? How medicines and other behaviors or treatments help to reduce the pain. ??? Consider talking with a mental health care provider about how to help manage chronic pain. ??? Consider joining a chronic pain support group. ??? Try to control or lower your stress levels. Talk with your health care provider about ways to do this. General instructions ??? Learn as much as you can about how to manage your chronic pain. Ask your health care provider if an intensive pain rehabilitation program or a chronic pain specialist would be helpful. ??? Check your pain level as told by your health care provider. Ask your health care provider if you should use a pain scale. Contact a health care provider if: ??? Your pain is not controlled with treatment. ??? You have new pain. ??? You have side effects from pain medicine. ??? You feel weak or you have trouble doing your normal activities. ??? You have trouble sleeping or you develop confusion. ??? You lose feeling or have numbness in your body. ??? You lose control of your bowels or bladder. Get help right away if: ??? Your pain suddenly gets much worse. ??? You develop chest pain. ??? You have trouble breathing or shortness of breath. ??? You faint, or another person sees you faint. These symptoms may be an emergency. Get help right away. Call 911. ??? Do not wait to see if the symptoms will go away. ??? Do not drive yourself to the hospital. Also, get help right away if: ??? You have thoughts about hurting yourself or others. Take one of these steps if you feel like you may hurt yourself or others, or have thoughts about taking your own life: ??? Go to your nearest emergency room. ??? Call 911. ??? Call the National Suicide Prevention Lifeline at or 273. This is open 24 hours a day. ??? Text the Crisis Text Line at 809880. This information is not intended to replace advice given to you by your health care provider. Make sure you discuss any questions you have with your health care provider. Document Revised: 05/01/2023 Document Reviewed: 04/03/2023 [employer] Patient Education ? 2023 [employer]. [facility] 01-03-2025 Evaluation + Plan note Extrac tayler from: Title:ED Note Author:Elliot Macias DO Date: Abdominal pain, chronic, gen eralized (R10.84: Generalized abdominal pain) Anxiety (F41.9: Anxiety disorder, unspecified) Other chronic pain (G89.29: Other chronic pain) Orders: dicyclomine, 20 mg = 2 mL, Injection, IntraMuscular, Once, Stop date 01/03/25 22:21:00 EDT, STAT, Start date 01/03/25 22:21:00 EDT, 01/03/25 22:21:00 EDT ketorolac, 30 mg = 1 mL, Injection, IV Push, Once, Stop date 01/03/25 22:21:00 EDT, STAT, Start date 01/03/25 22:21:00 EDT, 01/03/25 22:21:00 EDT lorazepam, 2 mg = 1 mL, Injection, IV Push, Once, Stop date 01/03/25 23:00:00 EDT, Routine, Start date 01/03/25 23:00:00 EDT, 01/03/25 22:21:00 EDT Sodium Chloride 0.9% intravenous solution, 1,000 mL, Soln-IV, IV, Once, Stop date 01/03/25 22:21:00 EDT, STAT, Start date 01/03/25 22:21:00 EDT, Infuse over 61, minute(s) Basic Metabolic Panel CBC w/ Auto Diff ED Cardiac Monitoring eGFR Saline Lock Insert UA with Cult Rflx XR Abdomen 1 View [facility] 04-09-2025 Hospital Discharge instructions Patient Education 12/30/2024 21:59:21 Ileostomy, Care After Ileostomy, Care After The following information offers guidance on how to care for yourself after your procedure. Your health care provider may also give you more specific instructions. If you have problems or questions, contact your health care provider. What can I expect after the procedure? After the procedure, it is common to have: A small amount of blood or clear fluid leaking from your stoma or rectum. Pain and discomfort in your abdomen, especially around your stoma. Your stoma may be dark-colored, swollen, and bruised at first. Irregular bowel movements for several days. Loose stool. Bloating. Follow these instructions at home: Medicines Take ulio-wqo-lqcmkqq and prescription medicines only as told by your health care provider. If you were prescribed antibiotics, take them as told by your health care provider. Do not stop using the antibiotic even if you start to feel better. Ask your health care provider if the medicine prescribed to you requires you to avoid driving or using machinery. Stoma and incision care Keep the skin around your stoma clean and dry. Follow instructions from your health care provider about how to take care of your stoma and incision. Make sure you: ?Wash your hands with soap and water for at least 20 seconds before and after you change your bandage (dressing). If soap and water are not available, use hand lubricating specialist. ?Change your dressing as told by your health care provider. ?Leave stitches (sutures), skin glue, or adhesive strips in place. These skin closures may need to stay in place for 2 weeks or longer. If adhesive strip edges start to loosen and curl up, you may trim the loose edges. Do not remove adhesive strips completely unless your health care provider tells you to do that. Check your stoma area every day for signs of infection. Check for: ?More redness, swelling, or pain. ?More fluid or blood. ?Warmth. ?Pus or a bad smell. Follow your health care provider's instructions about changing and cleaning your ostomy pouch. Keep supplies with you at all times to care for your stoma and ostomy pouch. Also keep extra clothing with you. Eating and drinking Follow instructions from your health care provider about what you may eat and drink. Advance your diet as told, and do not eat foods that may cause obstruction. Pay attention to which foods and drinks cause problems with digestion, such as gas, constipation, or diarrhea. Avoid spicy foods and caffeine while your stoma heals. Eat meals and snacks at regular intervals. Drink enough fluid to keep your urine pale yellow. This helps prevent dehydration. Activity Return to your normal activities as told by your health care provider. Ask your health care provider what activities are safe for you. Rest as much as possible while your stoma heals. Avoid intense physical activity for as long as you are told by your health care provider. You may have to avoid lifting. Ask your health care provider how much you can safely lift. General instructions Wear compression stockings as told by your health care provider. These stockings help to prevent blood clots and reduce swelling in your legs. Do not take baths, swim, or use a hot tub until your health care provider approves. Ask your healthcare provider if you may take showers. You may only be allowed to take sponge baths. Do not use any products that contain nicotine or tobacco. These products include cigarettes, chewing tobacco, and vaping devices, such as e-cigarettes. These can delay incision healing after surgery.If you need help quitting, ask your health care provider. Talk with your health care provider if you plan to become or if you take control pills. Tell your health care provider if you feel depressed or anxious. This surgery is a major change, and counseling may help you. Consider joining an ostomy support group. Keep all follow-up visits. Your health care provider will check how you are healing and watch for problems such as dehydration. Contact a health care provider if: You have a fever or chills. You have bowel or abdomen problems, such as: ?Loose stools that do not thicken after several weeks. ?Having bowel movements more often or less often than you were told to expect. ?Feeling nauseous. ?Vomiting. ?Pain, bloating, pressure, or cramping in the abdomen. You have stoma problems such as: ?Burning or itchy skin around your stoma. ?Any signs of infection in the stoma or incision area. ?Changes to the stoma, such as bleeding, wounds, tissue, or a dark or dusky color. You have problems with sexual activity. You have an unusual lack of energy (fatigue). You have signs of dehydration. These include being unusually thirsty, always having a dry mouth, having dark-colored urine, or mental confusion. You have pain or cramps in your abdomen that get worse or do not go away with medicine. You feel dizzy or light-headed. You have internal tissue coming out of your stoma (prolapse). Get help right away if: Your stoma changes size or color all of a sudden. You have bleeding from your stoma that does not stop. You faint. You have shortness of breath. You have chest pain or an irregular heartbeat. These symptoms may be an emergency. Get help right away. Call 911. Do not wait to see if the symptoms will go away. Do not drive yourself to the hospital. This information is not intended to replace advice given to you by your health care provider. Make sure you discuss any questions you have with your health care provider. Document Revised: 03/13/2023 Document Reviewed: 03/13/2023 [employer] Patient Education 2023 [employer]. Follow Up Care 12/30/2024 17:00:37 With:. [facility] Address: [place] [id number] Business (1) When:01/02/2025 21:58:17 Comments:Follow-up with your primary care provider tomorrow as scheduled along with your colorectal surgeon.Use hydroxyzine as needed for anxiety. Return to the ED with any new or worsening symptoms. [facility] 04-09-2025 NoteED Patient Education Note Gastroenterology Ileostomy, Care After The following information offers guidance on how to care for yourself after your procedure. Your health care provider may also give you more specific instructions. If you have problems or questions, contact your health care provider. What can I expect after the procedure? After the procedure, it is common to have: ??? A small amount of blood or clear fluid leaking from your stoma or rectum. ??? Pain and discomfort in your abdomen, especially around your stoma. Your stoma may be dark-colored, swollen, and bruised at first. ??? Irregular bowel movements for several days. ??? Loose stool. ??? Bloating. Follow these instructions at home: Medicines ??? Take jxaq-fed-wjyzpme and prescription medicines only as told by your health care provider. ??? If you were prescribed antibiotics, take them as told by your health care provider. Do not stopusing the antibiotic even if you start to feel better. ??? Ask your health care provider if the medicine prescribed to you requires you to avoid driving or using machinery. Stoma and incision care ??? Keep the skin around your stoma clean and dry. ??? Follow instructions from your health care provider about how to take care of your stoma and incision. Make sure you: ? Wash your hands with soap and water for at least 20 seconds before and after you change your bandage (dressing). If soap and water are not available, use hand lubricating specialist. ? Change your dressing as told by your health care provider. ? Leave stitches (sutures), skin glue, or adhesive strips in place. These skin closures may need tostay in place for 2 weeks or longer. If adhesive strip edges start to loosen and curl up, you may trim the loose edges. Do not remove adhesive strips completely unless your health care provider tellsyou to do that. ??? Check your stoma area every day for signs of infection. Check for: ? More redness, swelling, or pain. ? More fluid or blood. ? Warmth. ? Pus or a bad smell. ??? Follow your health care provider's instructions about changing and cleaning your ostomy pouch. ??? Keep supplies with you at all times to care for your stoma and ostomy pouch. Also keep extra clothing with you. Eating and drinking ??? Follow instructions from your health care provider about what you may eat and drink. Advance your diet as told, and do not eat foods that may cause obstruction. ??? Pay attention to which foods and drinks cause problems with digestion, such as gas, constipation, or diarrhea. ??? Avoid spicy foods and caffeine while your stoma heals. ??? Eat meals and snacks at regular intervals. ??? Drink enough fluid to keep your urine pale yellow. This helps prevent dehydration. Activity ??? Return to your normal activities as told by your health care provider. Ask your health care provider what activities are safe for you. ??? Rest as much as possible while your stoma heals. ??? Avoid intense physical activity for as long as you are told by your health care provider. ??? You may have to avoid lifting. Ask your health care provider how much you can safely lift. General instructions ??? Wear compression stockings as told by your health care provider. These stockings help to prevent blood clots and reduce swelling in your legs. ??? Do not take baths, swim, or use a hot tub until your health care provider approves. Ask your health care provider if you may take showers. You may only be allowed to take sponge baths. ??? Do not use any products that contain nicotine or tobacco. These products include cigarettes, chewing tobacco, and vaping devices, such as e-cigarettes. These can delay incision healing after surgery. If you need help quitting, ask your health care provider. ??? Talk with your health care provider if you plan to become or if you take controlpills. ??? Tell your health care provider if you feel depressed or anxious. This surgery is a major change, and counseling may help you. Consider joining an ostomy support group. ??? Keep all follow-up visits. Your health care provider will check how you are healing and watch for problems such as dehydration. Contact a health care provider if: ??? You have a fever or chills. ??? You have bowel or abdomen problems, such as: ? Loose stools that do not thicken after several weeks. ? Having bowel movements more often or less often than you were told to expect. ? Feeling nauseous. ? Vomiting. ? Pain, bloating, pressure, or cramping in the abdomen. ??? You have stoma problems such as: ? Burning or itchy skin around your stoma. ? Any signs of infection in the stoma or incision area. ? Changes to the stoma, such as bleeding, wounds, tissue, or a dark or dusky color. ??? You have problems with sexual activity. ??? You have an unusual lack of energy (fatigue). ??? You have signs of d (more content not included)...[facility]04-09-2025 Evaluation + Plan note Diagnostic Tests Pending * Urine Culture 12/30/24 [facility] 04-04-2025 Hospital Discharge instructions* Discharge Instr - JUSTEN* Italia Mendoza RN - 12/25/2024 8:51 PM EDT Continuity [...] Primary Emergency Contact: Rashi Deluca Address: * [address] Relation: Parent Past Surgical History: Past [...] MENTAL STATUS:} IV Access: { JUSTEN IV ACCESS:115207452} Nursing Mobility/ADLs: Walking {CHP DME ADLs:407992892} Transfer {CHP DME ADLs:382275759} Bathing {CHP DME ADLs:119916012} Dressing {CHP DME ADLs:082912473} Toileting {CHP DME ADLs:680838959} Feeding {CHP DME ADLs:301127676} Videotape Operator {P DME ADLs:091552506} Med Delivery { JUSTEN MED Delivery:077012100} Wound Care Documentation and Therapy: Elimination: Continence: Bowel: {YES / NO:} Bladder: {YES / NO:} Urinary Catheter: {Urinary Catheter:359375018} Colostomy/Ileostomy/Ileal Conduit: {YES / NO:} Date of Last BM: No intake or output data in the 24 hours ending 12/25/242050 No intake/output data recorded. Safety Concerns: { JUSTEN Safety Concerns:182543824} Impairments/Disabilities: { JUSTEN Impairments/Disabilities:717765986} Nutrition Therapy: Current Nutrition Therapy: { JUSTEN Diet List:416054487} Routes of Feeding: {P DME Other Feedings:571485369} Liquids: {Shipping Support liquid thickness:29746} Daily Fluid Restriction: {CHP DME Yes amt example:812625708} Last Modified Barium Swallow with Video (Video Swallowing Test): {Done Not Done Date:} Treatments at the Time of Hospital Discharge: Respiratory Treatments: Oxygen Therapy: {Therapy; copd oxygen:33408} Ventilator: {[facility] Vent List:737786349} Rehab Therapies: {THERAPEUTIC INTERVENTION:9906005830} Weight Bearing Status/Restrictions: {[facility] Weight Bearin} Other Medical Equipment (for information only, NOT a DME order): {EQUIPMENT:126204243} Other Treatments: Patient's personal belongings (please select all that are sent with patient): {[facility] DME Belongings:154245763} RN SIGNATURE: {Esignature:111023797} CASE MANAGEMENT/SOCIAL WORK SECTION Inpatient Status Date: Readmission Risk Assessment Score: [facility] RISK OF UNPLANNED READMISSION 2.0 0 Total Score Discharging to Facility/ Agency Name: Address: Phone: Fax: Dialysis Facility (if applicable) Name: Address: Dialysis Schedule: Phone: Fax: Microwave Radio Technician/Employment Services Director signature: {Esignature:710308169} PHYSICIAN SECTION Prognosis: {Prognosis:7964243561} Condition at Discharge: { Patient Condition:692690840} Rehab Potential (if transferring to Rehab): {Prognosis:6593028234} Recommended Labs or Other Treatments After Discharge: Physician Certification: I certify the above information and transfer of Rola Aguilar is necessary for the continuing treatment of the diagnosis listed and that she requires {[facility]} for {GREATER/LESS:289961998} 30 days. Update Admission H&P: {CHP DME Changes in HandP:395204574} PHYSICIAN SIGNATURE: {Esignature:548877815} * Attachments The following attachments cannot be sent through Care Everywhere. * Crohn's Disease ([place] African) [facility] of Present illness Narrative* Italia Mendoza RN - 12/25/2024 8:50 PM EDT TO go script - two percocet - scanned and sent with patient. [facility] Telephone encounter Note* Telephone Encounter - Michael Cheema APRN.CNP - 12/25/2024 12:30 PM EDT Abhi Guerra, Could you take a look at this patient. Her surgery is 01/08 do you have any recommendations for her? Thank you! Michael Cheema APRN.JIMMY [facility]04-04-2025 Miscellaneous Notes* Telephone Encounter - Michael Cheema APRN.CNP - 12/25/2024 12:30 PM EDT Abhi Guerra, Could you take a look at this patient. Her surgery is 01/08 do you have any recommendations for her? Thank you! Michael Cheema APRN.JIMMY [facility] History and physical note * Michael Cheema APRN.CNP - 12/24/2024 7:40 AM EDT HISTORY AND PHYSICAL EXAMINATION SERVICE DATE: 12/24/2024 [...] large neck Non-male patient STOP-Bang Score: 0 [id number] Score: Age: <65 Sex: female CHF history: No Hypertension history: No Stroke/TIA/thromboembolism history: No Vascular disease history: No Diabetes history: No [id number] Score: 1 ARISCAT Score: Age: <=50 Preoperative [...] Thick neck: no Lip Bite Test: I Microretrognathia/Micronagthia/Recessed Chin: No DENTAL Dental findings: missing tooth/teeth [...] She has severe cele-anal Crohn's and Crohn's colitis.She has a very poor QOL and is [...] tablet Take 1 tablet by mouth every 12hours for 7 days. Yes busPIRone (BUSPAR) 10 [...] 2 tablet at 6pm, 7pm, and 11pm theevening prior to surgery. Yes acetaminophen (TYLENOL) 500 [...] COVID-19 original vaccine, age 12+ yr, monovalent ([employer] [facility]) 01/18/2021 Imm Admin: COVID-19 original vaccine, age 12+ yr, monovalent ([employer] - [employer]) REVIEW OF SYSTEMS: PAIN [...] symptoms or problems. Cardiovascular: Negative for Recent NE, Angina, Chest Pain, PVD, DVT/PE GI: +See HPI : Negative for dysuria, incontinence, hematuria, and hesitancy BIOFUELS PRODUCT DEVELOPMENT MANAGER: Negative for abnormal vaginal bleeding, abnormal vaginal [...] 379 QTC Calculation (Bazett) 435 Calculated P [place] 36 Calculated R [place] 52 Calculated T [place] -4 Impression Sinus rhythm RSR' in V1 or V2, probably normal variant Borderline T abnormalities, inferior leads Borderline ECG Confirmed by ADDIE AGUIRRE MDET ([id number]) on 01/27/2024 12:00:17 PM Instructions Given to Patient: Instructions located in the after visit summary. Patient given verbal and written preop instructions and voices comprehension and compliance. SIGNATURE: Michael Cheema APRN.CNP PATIENT NAME: Rola Aguilar DATE: 12/24/2024 TIME: 7:42 AM [facility]04-03-2025 History and physical note* Michael Cheema APRN.CNP - 12/24/2024 7:40 AM EDT HISTORY AND PHYSICAL EXAMINATION SERVICE DATE: 12/24/2024 [...] large neck Non-male patient STOP-Bang Score: 0 [id number] Score: Age: <65 Sex: female CHF history: No Hypertension history: No Stroke/TIA/thromboembolism history: No Vascular disease history: No Diabetes history: No [id number]-ISZt Score: 1 ARISCAT Score: Age: <=50 Preoperative [...] Thick neck: no Lip Bite Test: I Microretrognathia/Micronagthia/Recessed Chin: No DENTAL Dental findings: missing tooth/teeth [...] She has severe cele-anal Crohn's and Crohn's colitis.She has a very poor QOL and is [...] tablet Take 1 tablet by mouth every 12hours for 7 days. Yes busPIRone (BUSPAR) 10 [...] 2 tablet at 6pm, 7pm, and 11pm theevening prior to surgery. Yes acetaminophen (TYLENOL) 500 [...] COVID-19 original vaccine, age 12+ yr, monovalent ([employer] - [employer]) 01/18/2021 Imm Admin: COVID-19 original vaccine, age 12+ yr, monovalent ([employer]- [employer] [facility]) REVIEW OF SYSTEMS: PAIN [...] symptoms or problems. Cardiovascular: Negative for Recent NE, Angina, Chest Pain, PVD, DVT/PE GI: +See HPI : Negative for dysuria, incontinence, hematuria, and hesitancy BIOFUELS PRODUCT DEVELOPMENT MANAGER: Negative for abnormal vaginal bleeding, abnormal vaginal [...] 379 QTC Calculation (Bazett) 435 Calculated P [place] 36 Calculated R [place] 52 Calculated T [place] -4 Impression Sinus rhythm RSR' in V1 or V2, probably normal variant Borderline T abnormalities, inferior leads Borderline ECG Confirmed by MARGIE AGUIRRE MD ([id number]) on 01/27/2024 12:00:17 PM Instructions Given to Patient: Instructions located in the after visit summary. Patient given verbal and written preop instructions and voices comprehension and compliance. SIGNATURE: Michael Cheema APRN.CNP PATIENT NAME: Rola Aguilar DATE: 12/24/2024 TIME: 7:42 AM documented in [facility]Tr[facility] NoteMicrobiology PROCEDURE: Blood Culture Charcoal [R1] SOURCE: Blood BODY SITE: Arm L COLLECTED DATE/TIME: 12/16/2024 22:47 EDT RECEIVED DATE/TIME: 12/16/2024 23:07 EDT START DATE/TIME: 12/16/2024 23:07 EDT FREE TEXT SOURCE: Peripheral vein site #1 Nellie Hinkle PA-C. Nellie Hinkle PA-C. FINAL REPORTS Final Report [] Verified Date/Time: 12/24/2024 00:00 EDT No growth at 7 days. Performing Locations R1: This test was performed at: [facility], [address] [place] [address], [address] , , DjojcbCleveland Clinic Hillcrest HospitalComment on above:Performed By: #### [id number] #### [facility] [address] [place] [address] [id number] NoteMicrobiology PROCEDURE: Blood Culture Charcoal [R1] SOURCE: Blood BODY SITE: Hand R COLLECTED DATE/TIME: 12/16/2024 22:49 EDT RECEIVED DATE/TIME: 12/16/2024 23:05 EDT START DATE/TIME: 12/16/2024 23:06 EDT FREE TEXT SOURCE: Peripheral vein site #2 Nellie Hinkle PA-C, PA-C, Rachel L. FINAL REPORTS Final Report [] Verified Date/Time: 12/24/2024 00:00 EDT No growth at 7 days. Performing Locations R1: This test was performed at: [facility], [address] [place] [address], [id number], WxkvsbCleveland Clinic Hillcrest HospitalComment on above:Performed By: #### [id number] #### [facility] [address] [place] [address] [id number] Hospital Discharge instructions Patient Education 12/23/2024 16:04:03 Anorectal Abscess [...] Follow these instructions at home: Medicines Take gxic-pkl-ljzzhkj and prescription medicines only as told by [...] and water are not available, use hand lubricating specialist. ?Change your dressing as told by your [...] gone away. Where to find more information [employer]al [employer]: [email or web address] [...] provider. Document Revised: 05/01/2023 Document Reviewed: 05/01/2023 [employer] Patient Education 2023 [employer] 12/23/2024 16:04:03 Crohn's Disease Crohn's Disease Crohn's [...] who specializes in diseases of the digestive tract(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 How is this treated? There is no [...] Follow these instructions at home: Medicines Take tcav-ytn-yvjtsrn and prescription medicines only as told by [...] provider. Document Revised: 03/15/2022 Document Reviewed: 03/15/2022 [employer] Patient Education 2023 [employer]. Follow Up Care 12/23/2024 12:50:25 With:SRAVANI KAYE Address: [address] [address] When:12/26/2024 15:34:32 With:SHAQ THAKKAR Address: [address] [place] [address] Business (1) When:12/26/2024 15:33:58 [facility] 04-02-2025 NoteED Patient Education Note Gastroenterology Anorectal Abscess [...] beyond the abscess and look like ared streak on the skin. ??? A painful [...] these instructions at home: Medicines ??? Take mpfr-pgn-ixrlnpp and prescription medicines only as told by [...] and water are not available, use hand lubricating specialist. ? Change your dressing as told by [...] away. Where to find more information ??? [employer] Rectal [employer]: [email or web address] Contact a health care provider if: ??? (more content not included)...[facility]04-02-2025 Evaluation + Plan noteExtracted from: Title:ED Note Author:Gary LEDESMA, Gadiel Ramirez [...] pain, # 10 cap(s), Refills(s) 0, Pharmacy: [facility]/pharmacy #[id number], 167, cm, 12/23/24 13:00:00 EDT, Height/Length Dosing, 53.2, kg, 12/23/24 13:00:00 EDT, Weight Dosing promethazine, 25 mg = 1 tab(s), Oral, q4hr, # 12 tab(s), Refills(s) 0, Pharmacy: [facility]/pharmacy #[id number], 167, cm, 12/23/24 13:00:00 EDT, Height/Length [...] Diagnostic Tests Pending * Urine Culture 12/23/24 [facility] 04-02-2025 Instructions* Patient Instructions* Michael Cheema APRN.WHEEL OF FORTUNE DEALER - 12/23/2024 11:23 AM EDT PATIENT PREOPERATIVE INSTRUCTIONS You Surgeon has scheduled you for your procedure at this surgery center: [facility]: [phone] --[address] [place] [address]. Please check in on thet floor at registration desk 6. Please read [...] of surgery with a sip of water: Marry & Everpar If you start any new medications after [...] Procedures: - YOU MUST HAVE A RESPONSIBLE KIDS ACTIVITIES COACH TAKE YOU HOME. A DIVISION OFFICER WEAPONS DEPARTMENT OR ADJUNCT INSTRUCTOR IN ECONOMICS CANNOT BE MADE A RESPONSIBLE KIDS ACTIVITIES COACH. - We recommend that a responsible person [...] Advance Directive, please fax a copy to [phone] or email to for it to be [...] into your chart that day. Michael Cheema APRN.JIMMY documented in [facility]Tr[facility]25 NoteHNO ID: [id number] Author: JODIE CARRION MD Service: Colorectal Author Type: Resident Type: Progress Notes Filed: 12/21/2024 13:05 Note Text: Documentation Query Please clarify the diagnosis associated with the clinical indicators for this patient Provider Response: Hypokalemia This document will become part of the patient's medical record.[facility] 12-18-2024 NoteHNO ID: [id number] Author: ALDO VILLALTA RN Service: Care Management Author Type: Registered Nurse Type: Care Mgt Initial Assessment Filed: 12/18/2024 14:53 Note Text: CARE MANAGEMENT: ASSESSMENT AND DISCHARGE PLAN SERVICE DATE: December 18, 2024 SERVICE TIME: 1451 PCP: No primary care provider on file. Primary Contact: No emergency contact information on file. Admission Status: Inpatient Insurance Provider: [facility] MEDICA[facility] Discharge Planning requested by: Per Department Practice Potential Transition Plans No Services Indicated Advance Directives Current Advance Directive: None Assistant Director Of Nursing Attempted to Assist with AD Completion: Yes [...] Be able to go home, General wellness [place] of Choice Explained: [place] of Choice Given: No Reason Not Given: [...] Aguilar DATE: December 18, 2024 TIME: 2:53 [facility]03-28-2025 NoteHNO ID: [id number] Author: ALDO VILLALTA RN Service: Care Management Author Type: Registered Nurse Type: Care Mgt Initial Assessment Filed: 12/18/2024 14:53 Note Text: CARE MANAGEMENT: ASSESSMENT AND DISCHARGE PLAN SERVICE DATE: December 18, 2024 SERVICE TIME: 1458 PCP: No primary care provider on file. Primary Contact: No emergency contact information on file. Admission Status: Inpatient Insurance Provider: [employer] Discharge Planning requested by: Per Department Practice Potential Transition Plans No Services Indicated Advance Directives Current Advance Directive: None Assistant Director Of Nursing Attempted to Assist with AD Completion: Yes [...] Be able to go home, General wellness [place] of Choice Explained: [place] of Choice Given: No Reason Not Given: [...] Aguilar DATE: December 18, 2024 TIME: 2:53 [facility]03-28-2025 NoteHNO ID: [id number] Author: PATRICIA HUBER AA Service: Anesthesiology Author Type: Formula Room Worker Type: Anesthesia Procedure Notes Filed: 12/18/2024 11:52 [...] December 18, 2024 TIME: 11:51 AM CSN: [id number] NoteHNO ID: [id number] Author: PATRICIA HUBER AA Service: Anesthesiology Author Type: Formula Room Worker Type: Anesthesia Procedure Notes Filed: 12/18/2024 11:52 [...] December 18, 2024 TIME: 11:51 AM CSN: [id number] NoteHNO ID: [id number] Author: JADYN BOJORQUEZ MD Service: Colorectal Author [...] home pending OR today Surgery Blue Team [phone] weekdays. Or [phone] weeknights (6pm - 6am) and weekends. Subjective: [...] ALT 7 AST 13 ALKPHOS 170* TBILI 0.3FBrockton HospitalAffayaij16-10-6548 Evaluation + Plan noteExtracted from: Title:ED Note Author:Manan LEDESMA, Nellie Ramirez te:12/16/24 Crohn's colitis (K50.10: Vertical Roll Operator hn's disease of large intestine without complications) [...] Appointments Appointment Date:12/23/2024 09:30:00 AM Scheduled Provider:Ja Bhardwaj MD [place] [place] [facility] Appointment Type:[facility] Follow Up Diagnostic Tests Pending * Urine Culture 12/17/24 [facility] 03-25-2025 Hospital Discharge instructions Patient Education 12/15/2024 [...] can increase anxiety. Avoid caffeine and certain dxbj-zwb-kimolfd cold medicines. These may make you feel worse. Ask yourpharmacist which medicines to avoid. General instructions Take opmi-evq-cxixtig and prescription medicines only as told by your health care provider. Understand that you are likely to have setbacks. Accept this and be kind to yourself as you persistto take better care of yourself. Anticipate stressful situations. Create a plan and allow extra time to work with your plan. Recognize and accept your accomplishments, even if you link cutter them as small. Spend time with people who care about you. Keep all follow-up visits. This is important. Where to find more information [place] of Mental Health: www.nimh.nih.gov Substance Abuse and Mental Health Services: www.samhsa.gov Contact a health care provider if: Your [...] department or: Call your local emergency services (643 in the [place] Call a suicide crisis helpline, such as the National Suicide Prevention Lifeline at or 884 in the [place] This is open 24 hours a day in the [place] Text the Crisis Text Line at 399092 (in the [place] Summary Generalized anxiety disorder [...] provider. Document Revised: 04/04/2022 Document Reviewed: 12/31/2021 [employer] Patient Education 2023 [employer]. Follow Up Care 12/15/2024 14:45:43 With:XXXX NONE Address: [place] When:12/18/2024 16:43:34 [facility] 03-25-2025 NoteED Patient Education Note Mental and [...] increase anxiety. ??? Avoid caffeine and certain uywh-vwp-eyixjiv cold me (more content not included)...[facility]03-[facility] Evaluation + Plan note Extracted from: Title:ED [...] anxiety, # 6 tab(s), Refills(s) 0, Pharmacy: [facility]/pharmacy #[id number], 167, cm, 12/15/24 14:57:00 EDT, Height/Length Dosing, [...] Appointments Appointment Date:12/23/2024 09:30:00 AM Scheduled Provider:Ja Bhardwaj MD Location[place] Digestive Health Appointment Type:[facility] Follow Up [facility] 03-23-2025 Hospital Discharge instructions Patient Education 12/13/2024 [...] if you start to feel better. Take jjua-wij-mwdjwmn and prescription medicines only as told by [...] provider. Document Revised: 05/16/2021 Document Reviewed: 05/16/2021 [employer] Patient Education 2023 [employer]. 12/13/2024 03:14:44 Anorectal Abscess Anorectal Abscess An [...] Follow these instructions at home: Medicines Take kobv-mhn-sovpnqg and prescription medicines only as told by [...] and water are not available, use hand lubricating specialist. ?Change your dressing as told by your [...] gone away. Where to find more information [employer]: [email or web address] [...] provider. Document Revised: 05/01/2023 Document Reviewed: 05/01/2023 [employer] Patient Education 2023 [employer]. 12/13/2024 03:14:44 Abdominal Pain, Adult Abdominal Pain, [...] Follow these instructions at home: Medicines Take wuty-xhp-hfkzhhe and prescription medicines only as told by [...] provider. Document Revised: 06/26/2023 Document Reviewed: 06/26/2023 [employer] Patient Education 2023 [employer]. Follow Up Care 12/12/2024 19:46:42 With:Make sure to follow-up with your colorectal surgeon as discussed. Return to the emergency room if your pain gets worse, fever, vomiting or any new symptoms. Address:Unknown When:12/16/2024 [facility] 03-23-2025 NoteED Patient Education Note Gastroenterology Colitis [...] you start to feel better. ??? Take icpx-yts-jlixbbe and prescription medicines only as told by [...] provider. Document Revised: 05/16/2021 Document Reviewed: 05/16/2021 [employer] Patient Education ? 2023 [employer] Anorectal Abscess An abscess is an infected [...] and look like ared (more content not included)...[facility]03-22-2025 Evaluation + Plan noteExtracted from: Title:ED Note Author:Lisandro Mishra, Carolyn Ramirez te:12/12/24 1. Abdominal pain (R10.9: Un specified abdominal pain) 2. Crohn's colitis (K50.10: Crohn's disease of large intestine without complications) 3. Anal abscess (K61.0: Anal abscess) Orders: amoxicillin-clavulanate, = 1 tab(s), Oral, q12hr, X 10 day(s), # 20 tab(s), Refills(s) 0, Pharmacy: [facility]/pharmacy #[id number], 167.6, cm, 12/12/24 19:58:00 EDT, Height/Length [...] pain, # 10 tab(s), Refills(s) 0, Pharmacy: [facility]/pharmacy #[id number], 167.6, cm, 12/12/24 19:58:00 EDT, Height/Length [...] Appointments Appointment Date:12/23/2024 09:30:00 AM Scheduled Provider:Ja Bhardwaj MD Location[place] Dig[facility]ive Health Appointment Type:[facility] Follow Up [facility] 03-20-2025 Hospital Discharge instructions Patient Education 12/09/2024 23:05:01 Nausea and Vomiting, Adult, Vbwq-vc-Ogek Nausea and Vomiting, Adult Nausea is feeling [...] fruit juice). ?Low-calorie sports drinks. Eat bland, qqik-jz-koxdtd foods in small amounts as you are able, such as: ?Bananas. ?Applesauce. ?Rice. ?Low-fat (lean) meats. ?[place]. ?Crackers. Avoid drinking fluids that have a lot of sugar or caffeine in them. This includes energy drinks, sports drinks, and soda. Avoid alcohol. Avoid spicy or fatty foods. General instructions Take dovs-hoe-edtrufb and prescription medicines only as told by your doctor. Drink enough fluid to keep your pee (urine) pale yellow. Wash your hands often with soap and water for at least 20 seconds. If you cannot use soap and water, use hand lubricating specialist. Make sure that everyone in your home [...] your doctor about eating and drinking. Take nzkf-lvx-qppnqct and prescription medicines only as told by your doctor. Contact your doctor if your symptoms get worse or you have new symptoms. Keep all follow-up visits. This information is not intended to replace advice given to you by your health care provider. Make sure you discuss any questions you have with your health care provider. Document Revised: 03/16/2022 Document Reviewed: 03/16/2022 [employer] Patient Education 2023 [employer] 12/09/2024 23:05:01 Hypomagnesemia Hypomagnesemia Hypomagnesemia is a [...] Do not drink alcohol. General instructions Take wijb-fge-jakqnmz and prescription medicines only as told by [...] provider. Document Revised: 02/06/2022 Document Reviewed: 02/06/2022 [employer] Patient Education 2023 [employer]. 12/09/2024 23:05:01 Abdominal Pain, Adult, Caha-kt-Miqz Abdominal Pain, Adult Many things can cause belly (abdominal) pain. In most cases, belly pain is not a serious problem and can be watched and treated at home. But in some cases, it can be serious. Your doctor will try to find the cause of your belly pain. Follow these instructions at home: Medicines Take iyxm-zfa-zpxfobd and prescription medicines only as told by [...] provider. Document Revised: 06/26/2023 Document Reviewed: 06/26/2023 [employer] Patient Education 2023 [employer]. Follow Up Care 12/09/2024 17:32:36 With:Brittny BLOUNT Address: [address] [place], [place] [address] [place] [address] [facility] (1) When:12/12/2024 Comments:Take the magnesium. You can use the pain medication, nausea medication as prescribed as needed for pain and nausea. Please follow-up with your primary care doctor for further evaluation management. Please return to the ED for any new or worsening symptoms. With:XXXX NONE Address: [place] When:12/12/2024 [facility] 03-19-2025 NoteED Patient Education Note Gastroenterology Nausea [...] ? Low-calorie sports drinks. ??? Eat bland, ejpq-jr-cctxlm foods in small amounts as you are able, such as: ? Bananas. ? Applesauce. ? Rice. ? Low-fat (lean) meats. ? [place]. ? Crackers. ??? Avoid drinking fluids that have a lot of sugar or caffeine in them. This includes energy drinks, sports drinks, and soda. ??? Avoid alcohol. ??? Avoid spicy or fatty foods. General instructions ??? Take cjtl-jso-ljgusxv and prescription medicines only as told by your doctor. ??? Drink enough fluid to keep your pee (urine) pale yellow. ??? Wash your hands often with soap and water for at least 20 seconds. If you cannot use soap and water, use hand lubricating specialist. ??? Make sure that everyone in your [...] doctor about eating and drinking. ??? Take xwlh-mlh-jsuvyyf and prescription medicines only as told by your doctor. ??? Contact your doctor if your symptoms get worse or you have new symptoms. ??? Keep all follow-up visits. This information is not intended to replace advice given to you by your health care provider. Make sure you discuss any questions you have with your health care provider. Document Revised: 03/16/2022 Document Reviewed: 03/16/2022 [employer] Patient Education ? 2023 [employer] Abdominal Pain, Adult Many things can cause belly (abdominal) pain. In most cases, belly pain is not a serious problem and can be watched and treated at home. But in some cases, it can be serious. Your doctor will try to find the cause of your belly pain. Follow these instructions at home: Medicines ??? Take eert-xyv-axigpzt and prescription medicines only as told by your doctor. ??? Do not take medicines that help you poop (laxatives) unless told by your doctor. General instructions ??? Watch your belly pain for any changes. Tell your doctor if the pain gets worse. ??? Drink enough fluid to keep your pee (urine) pale yellow. Con (more content not included)...[facility]03-19-2025 Evaluation + Plan noteExtracted from: Title:ED Note Author:Carolyn Mcmahon M.D. te:12/09/24 1. Abdominal pain (R10.9: Un specified [...] Lipase Level Magnesium Level Rapid COVID Antigen ([facility]) UA with Cult Rflx Addendum by Wendy [...] Appointments Appointment Date:12/23/2024 09:30:00 AM Scheduled Provider:Ja Bhardwaj MD Location:[facility] Digestive Health Appointment Type:[facility] Follow Up [facility] 03-14-2025 NoteHNO ID: [id number] Author: SOLIS FLORES RN Service: ? Author [...] operative questions. Staff Message sent to OR loin puller with procedure/time/date for patient. TIME SPENT: 15 min Electronically Signed By: BETY Ragland, RN DDSI Specialty Care CoordinatorCleveland Clinic [facility]03-14-2025 History of Present illness Narrative* Solis Flores [...] operative questions. Staff Message sent to OR loin puller with procedure/time/date for patient. TIME SPENT: 15 min Electronically Signed By: BETY Ragland, RN DDSI Specialty Barrel Cutter [facility] History of Present illness Narrative* Shaq Thakkar [...] NT Anorectal: External exam reveals: see below Executive Asst present: yes The sensitive examination was discussed with the Patient or Patient's Authorized Cardiovascular Disease Specialist. Asapplicable, any other physician, advance practice provider, medical student, or other health professional student that will be observing or involved in the sensitive examination for educational or training purposes was discussed with the Patient or Authorized Cardiovascular Disease Specialist. The Patient or Authorized Cardiovascular Disease Specialist has agreed to proceed with the [...] Thakkar MD Colorectal Surgery documented in this encounterTr[facility]03-14-2025 NoteHNO ID: [id number] Author: SHAQ THAKKAR MD Service: ? Author [...] NT Anorectal: External exam reveals: see below Executive Asst present: yes The sensitive examination was discussed with the Patient or Patient's Authorized Cardiovascular Disease Specialist. As applicable, any other physician, advance practice provider, medical student, or other health professional student that will be observing or involved in the sensitive examination for educational or training purposes was discussed with the Patient or Authorized Cardiovascular Disease Specialist. The Patient or Authorized Cardiovascular Disease Specialist has agreed to proceed with the [...] PC and GI. Shaq Thakkar MD Colorectal SurgeryC[facility]03-14-2025 NoteEducation ([facility]) ROLA AGUILAR ([id number]) 1995 F Date Time Provider Department 12/04/[address] [facility] Reason for Visit: Crohns [292] During your [...] week. Encounter Status:Closed by SOLIS FLORES on 12/04/24[facility] 12-01-2024 NoteMicrobiology PROCEDURE: Blood Culture Charcoal [R1] SOURCE: Blood BODY SITE: Arm R COLLECTED DATE/TIME: 11/24/2024 11:00 EST RECEIVED DATE/TIME: 11/24/2024 11:17 EST START DATE/TIME: 11/24/2024 11:17 EST FREE TEXT SOURCE: Anderle III DO, Quinn Anderle III DO, Quinn J. J. FINAL REPORTS Final Report [] Verified Date/Time: 12/01/2024 12:00 EDT No growth at 7 days. Performing Locations R1: This test was performed at: [facility], [address] [place] [address], [id number] [place] [address], [address] [place], [place] [address]Comment on above:Performed By: #### [id number] #### [facility] [address] [place] [address] [id number] NoteMicrobiology PROCEDURE: Blood Culture Charcoal [R1] SOURCE: Blood BODY SITE: Arm R COLLECTED DATE/TIME: 11/24/2024 10:19 EST RECEIVED DATE/TIME: 11/24/2024 10:58 EST START DATE/TIME: 11/24/2024 10:58 EST FREE TEXT SOURCE: Anderle III DO, Quinn Anderle III DO, Quinn J. J. FINAL REPORTS Final Report [] Verified Date/Time: 12/01/2024 12:00 EDT No growth at 7 days. Performing Locations R1: This test was performed at: [facility], [address] [place] [address], [address] [place] [address], [address] [place], [place] [address]Comment on above:Performed By: #### [id number] #### [facility] [address] [place] [address] [id number] NoteMicrobiology PROCEDURE: Blood Culture Charcoal [R1] SOURCE: Blood BODY SITE: Arm R COLLECTED DATE/TIME: 11/22/2024 05:56 EST RECEIVED DATE/TIME: 11/22/2024 07:04 EST START DATE/TIME: 11/22/2024 07:04 EST FREE TEXT SOURCE: IV start Alfred Graham DO, DO, Alfred Wallace FINAL REPORTS Final Report [] Verified Date/Time: 11/29/2024 09:00 EDT No growth at 7 days. Performing Locations R1: This test was performed at: [facility], [address] [place] [address], [phone] , [place], TqrocdCleveland Clinic Hillcrest HospitalComment on above:Performed By: #### [id number] #### [facility] [address] [place] [address] [id number] NoteMicrobiology PROCEDURE: Blood Culture Charcoal [R1] SOURCE: [...] contaminant Result called to Dr. Rodriguez by [facility] and results read back for [...] Locations R1: This test was performed at: [facility], [address] [place] [address], [address] [place] [address], DltphmCleveland Clinic Hillcrest HospitalComment on above:Performed By: #### [id number] #### [address] [id number] NoteMicrobiology PROCEDURE: Spinal Fluid Culture [R1] SOURCE: [...] Locations R1: This test was performed at: [facility], [address] [place] [address], [id number] , , OlbkzdCleveland Clinic Hillcrest HospitalComment on above:Performed By: #### [id number] #### [facility] [address] [place] [address] [phone] Hospital Discharge instructions Patient Education 11/25/2024 15:34:38 [...] surroundings are moving when they are not. Sj us. This is a feeling of having seen [...] Follow these instructions at home: Medicines Take qvst-qfl-fgmqset and prescription medicines only as told by [...] medicines are used to treat seizures. Take frnu-zme-nquodcd and prescription medicines only astold by your health care provider. This information is not intended to replace advice given to you by your health care provider. Make sure you discuss any questions you have with your health care provider. Document Revised: 03/17/2021 Document Reviewed: 03/17/2021 [employer] Patient Education 2022 [employer]. Follow Up Care 11/22/2024 03:17:42 With:SHAQ THAKKAR Address: [address] [place] [address]- Business (1) When:7 to 10 days Comments:Call for followup appointment - regarding sacral wound and perirectal fistula With:Ja Bhardwaj Address: [address], [address] [facility] [address] [place] [phone] Business (1) When:2 to 4 weeks Comments:Call for followup appointment With:Thuy GILES, CINTIA Aguilar Address: [address] [address]- Business (1) When:12/15/2024 13:30:00 Comments:This follow up is with Magdalene Boyle NP With:[facility] Address: [address] [place] [address]- When:12/18/2024 10:45:00 Comments:Patient needs to bring proof of insurance and photo ID to this hospital follow up appointment. With:XXXX NONE Address: [place] When: Unknown [facility] 03-05-2025 NoteDischarge Summary Admission and Discharge Information Admit Date/Time:11/22/2024 06:42 Admitting Physician - Dago OLVERA DO Consulting Physician - Thuy GILES, Aldo Bernstein Jr., PA-C Admitting Diagnoses: 1. Unspecified convulsions, 11/24/2024 Discharge [...] to perianal abscess who was admitted to [facility] on 11/22/2024 with new onset seizure [...] for appointment on 12/18/2024. GI follow-up Dr. Bhardwaj as needed. Follow-up with previous colorectal surgeon [...] fistula, Consult and Co-ma (more content not included)...[facility] Comment on above:Result Comment: Electronically Signed By: Quinn Rodriguez III, DO\.br\Date and Time Signed: 11/25/24 15:46 [id number] Note Interdisciplinary Note - Microwave Radio Technician P tis out of room for trach placement, no family present. Pending SNF referral to [facility] and pending family decision regarding LTAC. Contact information provided and white board updated.[facility] HospitalComment on above:Result Comment: Electronically Signed By: Heather Barragan RN\.br\Date and Time Signed: 11/25/24 12:32 ESTOther Comment: [id number] Evaluation + Plan note Extracted from: Title:Discharge Note Author:Evelia Rodriguez III, DO Date:11/25/24 Discharge To, Anticipated II - Home [...] tab(s), Oral, BID With When Contact Information [facility] Service 12/18/2024 10:45 AM EDT [address] [place] [address]- Additional Instructions: Patient needs to bring proof of insurance and photo ID to this hospital follow up appointment. Jeff Marinelli MD, NEU 12/15/2024 01:30 PM EDT [address] [place] [address]- Business (1) Additional Instructions: This follow up is with ZOE[facility] Edge Within [address] [place] [address] [place] [address]- Business (1) Additional Instructions: Call for followup appointment - regarding sacral wound and perirectal fistula Peres Charlesblanca Within [address] to [address], [address] [phone] Business (1) Additional Instructions: Call for followup appointment XXXX NONE In 0 days [place] Additional Instructions: Seizure, Adult Extracted from: Title:APSO Note-neurology Author:Elvis Spence RN Date:11/25/24 ASSESSMENT: New onset seizures, have resolved. They were generalized tonic-clonic seizures and occurred in the work manager hours of November 22, 2024. She has now stable from a seizure standpoint. Unclear as to why she would have new onset seizures. She is on vedolizumab from the Crohn's and due to its immunosuppression, TOE LASTER infection was initially my concern but her [...] to perianal abscess who was admitted to [facility] on 11/22/2024 with new onset seizure [...] for DVT prophylaxis. Extracted from: Title:Consult Note Author:Delfina Brandon PA-C Date:11/24/24 Rola Aguilar is a 29 year- old female with extensive history of Crohn's disease known to GI service with multiple procedures within the last year including drainage of perirectal abscess with seton placement. Trauma consulted on 11/22, certified professional ergonomist surgeon felt there was no indication for [...] of illness - Discussed with ICU team Delfina Brandon PA-C Trauma Surgery/Surgical Critical Care/Emergency General Surgery *For urgent issues arising after 4PM during the week or on weekends/holiday, please page the trauma/EGS attending certified professional ergonomist. This patient's plan of care was discussed with Trauma/Emergency General Surgery attending, Dr. Huggins Extracted from: Title:APSO Note-neurology Author:Jordy HARTMANN, Elvis argelia Date:11/24/24 BACKGROUND: 29-year-old woman with history of Crohn's disease, has colostomy, recently struggling with Crohn's and complications of it such as fistulas. In the work manager hours of November 22, 2024 she was [...] from the Crohn's and due to immunosuppression, TOE LASTER infection was initially my concern but her [...] and evaluated the patient with the physician housekeeping assistant. His history, physical exam, assessment and [...] to perianal abscess who was admitted to [facility] on 11/22/2024 with new onset seizure [...] DVT prophylaxis. Extracted from: Title:APSO Note- Neurology Author:Carolyn HARTMANN, Michael Wallace Date:11/23/24 29-year-old woman with histo ry of Crohn's disease, has colostomy, recently struggling with Crohn's and complications of it such as fistulas. In the work manager hours of November 22, 2024 she was [...] from the Crohn's and due to immunosuppression, TOE LASTER infection should be a concern, especially given [...] Critical Care Ill/Injured Pt Initial 30-74 Min 84152 2. Generalized seizure (R56.9: Unspecified convulsions) No [...] After 24 Hours Restraint Initiate Non-Violent / Xtf-Ophg-Sqfpbgfkaag Behavior Restraint Monitoring Non-Violent / Non-Self- Destructive [...] not included. Extracted from: Title:Consult Note-neurology Author:Jordy HARTMANN, N ichole Date:11/22/24 The patient is a [...] Cult Rflx Urinary Catheter Insertion Ventilator Settings [facility] 03-05-2025 NoteProgress Note-Physician Assessment/Plan ASSESSMENT: New onset seizures, have resolved. They were generalized tonic-clonic seizures and occurred in the work manager hours of November 22, 2024. She has now stable from a seizure standpoint. Unclear as to why she would have new onset seizures. She is on vedolizumab from the Crohn's and dueto its immunosuppression, TOE LASTER infection was initially my concern but her [...] bag CARDIO/VASC: Limbs without (more content not included)...[facility] HospitalComment on above:Result Comment: Electronically Signed By: Carolyn Spence RN\.br\Date and Time Signed: 11/25/24 09:27 EST\.br\Electronically Co- Signed By: Ted Petersen DO.br\Date and Time Co-Signed: 11/25/24 11:31 EST 11-24-2024 [...] admitted to the ICU for further management. 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 Terminal ileitis, possibly improved from prior. Perirectal fistula, grossly unchanged. Assessment/Plan Rola Aguilar is a 29 year-old female with extensive history of Crohn's disease known to GI service with multiple procedures within the last year including drainage of perirectal abscess with seton placement. Trauma consulted on 11/22, certified professional ergonomist surgeon felt there was no indication for [...] of illness - Discussed with ICU team Delfina Brandon PA-C Trauma Surgery/Surgical Critical Care/Emergency General Surgery *For urgent issues arising after 4PM during the week or on weekends/holiday, please page the trauma/EGS attending certified professional ergonomist. This patient's plan of care was discussed [...] 1 tab(s), Oral, q8h (more content not included)...[facility] HospitalComment on above:Result Comment: Electronically Signed By: Delfina Brandon PA-C\.br\Date and Time Signed: 11/24/24 13:04 EST\.br\Electronically Co-Signed By: Delfina Huggins MD\.br\Date and Time Co-Signed: 11/24/24 14:28 [id number] NoteConsultation Note Reason for Consultation Perirectal fistula Images IMPRESSION: Diffuse colitis, similar to prior. Terminal ileitis, possibly improved from prior. Perirectal fistula, grossly unchanged. Assessment/Plan Rola Aguilar is a 29 year-old female with extensive history of Crohn's disease known to GI service with multiple procedures within the last year including drainage of perirectal abscess with seton placement. Trauma consulted on 11/22, certified professional ergonomist surgeon felt there was no indication for [...] of illness - Discussed with ICU team Delfina Brandon PA-C Trauma Surgery/Surgical Critical Care/Emergency General Surgery *For urgent issues arising after 4PM during the week or on weekends/holiday, please page the trauma/EGS attending certified professional ergonomist. This patient's plan of care was discussed [...] q6hr, PRN, Not taking: uses zofran now Regalisa Suarez Vistaril 25 mg Tab, 1-2 tab(s), Oral, QID, PRN, Not taking Zofran 4 mg Tab Zofran 4 mg Tab, 4 mg= 1 tab(s), Oral, q8hr, PRN Zofran ODT 4 mg Tab-Dis, 4 mg= 1 tab(s), Oral, q8h (more content not included)...[facility] HospitalComment on above:Result Comment: Electronically Signed By: Delfina Brandon PA-C\.br\Date and Time Signed: 11/24/24 13:04 EST\.br\Electronically Co-Signed By: Delfina Huggins MD\.br\Date and Time Co-Signed: 11/24/24 14:28 [id number] NoteProgress Note - Pharmacy Vancomycin Pharmacy to Dose Consult Note Indication: Empiric Treatment Goal Range: AUC/CRISTINA: 400 - 600 RECOMMENDATIONS/ PLAN: Pharmacy consulted for vancomycin dosing for ROLA AGUILAR, a 29 Years old, Female who is beingtreated with vancomycin for empiric treatment. 1. Vancomycin therapy is still active, today is day 3 of treatment. Patient is receiving [id number] mg IV q12hr. 2. The most recent [...] any questions, please contact the pharmacy at [phone]. Age: 29 Years Allergies: HYDROmorphone Weight:Last Documented [...] Lymph Auto: 8.7 % Low (11/24/24 03:19:00) [place] Auto: 6.3 % (11/24/24 03:19:00) Eos Auto: 1.6 % (11/24/24 03:19:00) Basophil Auto: 0.6 % (11/24/24 03:19:00) Neutro Absolute: 6.8 E9/L (11/24/24 03:19:00) Lymph Absolute: 0.7 E9/L Low (11/24/24 03:19:00) [place] Absolute: 0.5 E9/L (11/24/24 03:19:00) Eos Absolute: [...] 76 mg/dL (11/24/24 03:18:00) POC Device SN: [id number] (11/24/24 03:18:00) POC User ID: [id number] (11/24/24 03:18:00) POC Username: GURJIT DEGROOT (11/24/24 03:18:00)[facility] 11-24-2024 NoteProgress Note-Physician Assessment/Plan BACKGROUND: 29-year-old woman with history of Crohn's disease, has colostomy, recently struggling with Crohn's and complications of it such as fistulas. In the work manager hours of November 22, 2024 she was [...] vedolizumab from the Crohn's and dueto immunosuppression, TOE LASTER infection was initially my concern but her [...] Total 11.5 1,845.37 4,417 (more content not included)...[facility]Comment on above:Result Comment: Electronically Signed By: Carolyn Spence RN\.br\Date and Time Signed: 11/24/24 10:02 EST\.br\Electronically Co-Signed By: Ted Petersen DO\.br\Date and Time Co-Signed: 11/24/24 10:49 [id number] NoteConsultation Note Chief Complaint seizure Reason for [...] Continue precedex for a (more content not included)...[facility]:Result Comment: Electronically Signed By: Doroteo GILES, Alexa Hernandez\.br\Date and Time Signed: 11/23/24 17:29 [id number] NoteConsultation Note Chief Complaint seizure Reason for [...] Continue precedex for a (more content not included)...[facility] on above:Result Comment: Electronically Signed By: Sean Meehan PA-C, Aldo Hernandez\.br\Date and Time Signed: 11/23/24 16:44 EST\.br\Electronically Co- Signed By: Doroteo GILES, Alexa Hernandez\.br\Date and Time Co-Signed: 11/23/24 17:29 EST 11-23-2024 [...] Continue precedex for a (more content not included)...[facility] on above:Result Comment: Electronically Signed By: Sean Meehan PA-C, Aldo Hernandez\.br\Date and Time Signed: 11/23/24 16:44 [id number] NoteProgress Note-Physician Assessment/Plan Patient is a 29-year-old female with past medical history of anxiety, bipolar, Crohn's status post ileostomy, and 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 In the work manager hours of November 22, 2024 she was [...] vedolizumab from the Crohn's and dueto immunosuppression, TOE LASTER infection should be a concern, especially given [...] rocuronium mL -- -- (more content not included)...[facility] HospitalComment on above:Result Comment: Electronically Signed By: Lynn Leon RN\.br\Date and Time Signed: 11/23/24 07:29 EST\.br\Electronically Co-Signed By: Ted Petersen DO\.br\Date and Time Co-Signed: 11/23/24 12:42 [id number] NoteProcedural LUMBAR PUNCTURE: The details of the [...] prior to the procedure. There were no complications.[facility]03-03-2025 NoteProcedural LUMBAR PUNCTURE: The details of the [...] prior to the procedure. There were no complications.[facility]03-03-2025 NoteProgress Note - Microwave Radio Technician Patient is sedated on vent, getting EEG now, discussed possibe LP and additional MRI, Possible planfor extubation today. Pt mom and boyfriend have been at bedside, and updated provided per nursing. Pt is from home with mom and she will transport at [place]. Contact information provided and white board updated. CRM followingC[facility]03-02-2025 NoteProgress Note - Pharmacy Vancomycin Pharmacy to [...] any questions, pleasecontact the pharmacy at extension [phone]. Age: 29 Years Allergies: ALLERGIES Weight: Last [...] 03:46:00) Basophil Man: 0 % (11/22/24 03:46:00) [place] Man: 3 % High (11/22/24 03:46:00) Myelo Man: 4 % High (11/22/24 03:46:00) Segs Abs Man: 18.2 E9/L (11/22/24 03:46:00) Lymph Abs Man: 3.9 E9/L (11/22/24 03:46:00) [place] Abs Man: 2.1 E9/L High (11/22/24 03:46:00) [...] mg/dL High (11/22/24 03:24:00) POC Device SN: [id number] (11/22/24 03:24:00) POC User ID: [id number] (11/22/24 03:24:00) POC Username: JACQUE FULLER (11/22/24 [...] Base Excess Arterial: 0.2 (more content not included)...[facility]03-02-2025 NoteConsultation Note Chief Complaint Pt. arrived by [...] to by the patient or appropriate patient outreach representative. Assessment/Plan The patient is a 29-year-old [...] 13. Pressure ulcer o (more content not included)...[facility] Comment on above:Result Comment: Electronically Signed By: [...] healthcare professional which was witnessed and supervisedby vt via video telemedicine visit consented to by the patient or appropriate patient outreach representative. Assessment/Plan The patient is a 29-year-old [...] 13. Pressure ulcer o (more content not included)...[facility] Comment on above:Result Comment: Electronically Signed By: Carolyn Spence RN\.br\Date and Time Signed: 11/22/24 08:36 EST\.br\Electronically Co- Signed By: Jeff Marinelli MD\.br\Date and Time Co-Signed: 11/22/24 11:18 EST 11-22-2024 NoteHistory and Physical Basic Information Admit Date/Time:11/22/2024 06:42 Chief Complaint Pt. arrived by squad w/ NFD for unresponsiveness. Pt. mom stated she heard pt grunting from her room and being unresponsive. Pt. hx of chrons, GCS6 upon arrival, on 2l NC 100% spo2. History of Present Illness 29-year-old female with past medical history of anxiety, bipolar, Crohn's status post ileostomy, anal fistula, anxiety, presented to ER work manager 11/22 due to new onset seizure. History was [...] 1.2, potassium 2.9, troponin 96. ABG 7.2 . Per note CODE STATUS is full code. Review of Systems Scoring Emerson Fall Risk Score: 35 (11/22/24) Physical Exam [...] 03:46:00) Basophil Man: 0 % (11/22/24 03:46:00) [place] Man: 3 % High (11/22/24 03:46:00) Myelo Man: 4 % High (11/22/24 03:46:00) Segs Abs Man: 18.2 E9/L (11/22/24 03:46:00) Lymph Abs Man: 3.9 E9/L (11/22/24 03:46:00) [place] Abs Man: 2.1 E9/L High (11/22/24 03:46:00) [...] Cocaine Scr: NEGATIVE (11/22/24 (more content not included)...[facility] HospitalComment on above:Result Comment: Electronically Signed By: Shelli Jaimes DO\.br\Date and Time Signed: 11/22/24 09:03 [id number] Hospital Discharge instructions Patient Education 11/14/2024 23:31:36 Abdominal Pain, Adult, Snqp-dy-Aziz Abdominal Pain, Adult Many things can cause belly (abdominal) pain. In most cases, belly pain is not a serious problem and can be watched and treated at home. But in some cases, it can be serious. Your doctor will try to find the cause of your belly pain. Follow these instructions at home: Medicines Take ekev-bfu-zfpsqkd and prescription medicines only as told by [...] provider. Document Revised: 06/26/2023 Document Reviewed: 06/26/2023 [employer] Patient Education 2023 [employer]. 11/14/2024 23:31:36 Crohn's Disease Crohn's Disease Crohn's [...] who specializes in diseases of the digestive tract(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 How is this treated? There is no [...] Follow these instructions at home: Medicines Take juaw-wks-ejufooc and prescription medicines only as told by [...] provider. Document Revised: 03/15/2022 Document Reviewed: 03/15/2022 [employer] Patient Education 2023 [employer]. Follow Up Care 11/14/2024 17:31:25 With:John Calderon Address: [address] [place], [place] [address]dict C[address], [address] [place] [address] [phone] Business (1) When:11/17/2024 Comments:Call Dr for diagnosis based follow up [facility] 02-22-2025 NoteED Patient Education Note Gastroenterology Abdominal Pain, Adult Many things can cause belly (abdominal) pain. In most cases, belly pain is not a serious problem and can be watched and treated at home. But in some cases, it can be serious. Your doctor will try to find the cause of your belly pain. Follow these instructions at home: Medicines ??? Take bvts-tnm-dvjfwuy and prescription medicines only as told by [...] provider. Document Revised: 06/26/2023 Document Reviewed: 06/26/2023 [employer] Patient Education ? 2023 [employer]. Immunology Crohn's Disease Crohn's disease is a [...] who specializes in diseases of the digestive tract(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 How is this treated? There is no cure for this condition, and it affects each person differently. Treatment can help youmanage your symptoms. Your treatment may include: ??? Medicines. These ma (more content not included)...[facility]01-10-2025 Hospital Discharge instructions Patient Education 10/02/2024 17:49:33 [...] Follow these instructions at home: Medicines Take pzbg-pxr-hjgkfgt and prescription medicines only as told by [...] provider. Document Revised: 06/26/2023 Document Reviewed: 06/26/2023 [employer] Patient Education 2023 [employer] 10/02/2024 17:49:33 Crohn's Disease Crohn's Disease [...] who specializes in diseases of the digestive tract(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 How is this treated? There is no [...] Follow these instructions at home: Medicines Take fwha-pke-lcryyul and prescription medicines only as told by [...] provider. Document Revised: 03/15/2022 Document Reviewed: 03/15/2022 [employer] Patient Education 2023 [employer]. Follow Up Care 10/02/2024 13:52:38 With:Gumaro Acevedo Address: [address] [place], [place] [address]philipp [place] [address] [phone] Business (1) When:10/05/2024 17:31:37 [facility] 01-10-2025 NoteED Patient Education Note Gastroenterology Abdominal [...] these instructions at home: Medicines ??? Take lyls-rfz-curwybo and prescription medicines only as told by [...] provider. Document Revised: 06/26/2023 Document Reviewed: 06/26/2023 [employer] Patient Education ? 2023 [employer] Immunology Crohn's Disease Crohn's disease is [...] who specializes in diseases of the digestive tract(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 How is this treated? There is no cure for this condition, and it affects each person differently. (more content not included)...[facility]01-10-2025 Evaluation + Plan note Diagnostic Tests Pending * UA with Cult Rflx 10/02/24 [facility] [id number] Telephone encounter Note* Telephone Encounter - Heather Leary RN - 08/12/2024 2:40 PM EST Images from the original note were not included. Attempted to call patient. Left detailed VM for patient to call [facility] at [phone] SHAHBAZ Rosdao Rebecca [facility] Lee Ann Humphries DO; Heather Leary RN Noted, thank you! I'll keep trying to reach her. Amina ----- Message ----- From: Lee Ann Humphries DO Sent: 08/12/2024 11:25 AM EST To: Heather Leary RN; Zaira Gonzalez [facility] Yes, she should still continue her Entyvio after surgery. I will have our office try to reach out to her as well. Thank you for the update. Lee Ann Humphries DO ----- Message ----- From: Zaira Gonzalez vidal Sent: 08/12/2024 11:19 AM EST To: DO Christelle Gu[address] Dr[address] [facility] has been unable to reach patient to set up Entyvio refill shipment after several attempts. Is she continuing Entyvio at this time? I see that she had surgery a few weeks ago. Thanks, Amina [facility]11-20-2024 Miscellaneous Notes* Telephone Encounter - Heather Leary RN - 08/12/2024 2:40 PM EST Images from the original note were not included. Attempted to call patient. Left detailed VM for patient to call [facility] at [phone] SHAHBAZ Rosado Rebecca [facility] Lee Ann Humphries DO; Heather Leary RN Noted, thank you! I'll keep trying to reach her. Amina ----- Message ----- From: Lee Ann Humphries DO Sent: 08/12/2024 11:25 AM EST To: Heather Leary RN; Zaira Gonzalez [facility] Yes, she should still continue her Entyvio after surgery. I will have our office try to reach out to her as well. Thank you for the update. Lee Ann Humphries DO ----- Message ----- From: Zaira Gonzalez [facility] Sent: 08/12/2024 11:19 AM EST To: DO Zully Guillaume Dr. Humphries [facility] has been unable to reach patient to set up Entyvio refill shipment after several attempts. Is she continuing Entyvio at this time? I see that she had surgery a few weeks ago. Thanks, Amina documented [facility]Tr[facility]24 NoteHNO ID: [id number] Author: ?, ?, ? Service: ? Author Type: ? Type: Plan of Care Filed: 07/20/2024 16:18 Note Text: PHARMACY BEDSIDE DELIVERY SERVICE Patient Name: Rola Aguilar The marked outpatient medications were filled at [facility] pharmacy and picked up at the [...] them or your Primary Care Provider. Araceli Cervantes PAGER: [phone] July 20, 2024 4:18 [facility]10-28-2024 NoteHNO ID: [id number] Author: BRANNON SCHREIBER APRN.COMPUTER TECHNICAL SPECIALIST Service: Anesthesiology Author Type: Nurse Billing Machine Operator Type: Anesthesia Procedure Notes Filed: 07/20/2024 12:48 Note Text: ANESTHESIOLOGY PROCEDURE NOTE Airway General Information Procedure Start Time/Medication Administration: 07/20/2024 12:35 PM Procedure End Time: 07/20/2024 12:35 PM Patient location during procedure: OR Timeout Performed Pre-procedure: timeout performed Consent Obtained: Yes Patient identity confirmed: arm band and patient Staffing Anesthesiologist: Radha Arnold MD COMPUTER TECHNICAL SPECIALIST: Brannon Schreiber APRN.COMPUTER TECHNICAL SPECIALIST Performed by: RAÚL Indications and Patient Condition Indications for airway management: anesthesia Preoxygenated: yes anesthesia circuit Patient position: sniffing Method: asleep Cricoid Pressure: No Manual In-Line Stabilization: No Difficult Mask: No Final Airway Details Final airway type: supraglottic airway Final Supraglottic Airway: i-gel Size 4 Seal Adequate: yes Failed airway: no Unrecognized esophageal intubation: no Airway not difficult SIGNATURE: Brannon Schreiber APRN.COMPUTER TECHNICAL SPECIALIST PATIENT NAME: Rola Aguilar DATE: July 20, 2024 TIME: 12:47 PM CSN: [id number] Nurse Note* Solis Flores RN - 07/17/2024 10:56 AM EDT Education packet given for EUA/ I&D/ Fistulotomy/ seton on July 20. Discussed pre op instructions in detail. She will arrive 2 hours before surgery for anesthesia clearance. Surgery time is 12and she is aware. No other questions or concerns at this time. [facility]10-25-2024 Nurse Note* Solis Flores RN - 07/17/2024 10:56 AM EDT Education packet given for EUA/ I&D/ Fistulotomy/ seton on July 20. Discussed pre op instructions in detail. She will arrive 2 hours before surgery for anesthesia clearance. Surgery time is 12and she is aware. No other questions or concerns at this time. documented in this [facility]Tr[facility] History of Present illness Narrative* Shaq Thakkar [...] exam Anorectal: External exam reveals: see below Executive Asst present: yes The sensitive examination was discussed with the Patient or Patient's Authorized Cardiovascular Disease Specialist. Asapplicable, any other physician, advance practice provider, medical student, or other health professional student that will be observing or involved in the sensitive examination for educational or training purposes was discussed with the Patient or Authorized Cardiovascular Disease Specialist. The Patient or Authorized Cardiovascular Disease Specialist has agreed to proceed with the [...] Thakkar MD Colorectal Surgery documented in this encounterTr[facility]10-[facility]-2024 NoteHNO ID: [id number] Author: SHAQ THAKKAR MD Service: ? Author [...] exam Anorectal: External exam reveals: see below Executive Asst present: yes The sensitive examination was discussed with the Patient or Patient's Authorized Cardiovascular Disease Specialist. As applicable, any other physician, advance practice provider, medical student, or other health professional student that will be observing or involved in the sensitive examination for educational or training purposes was discussed with the Patient or Authorized Cardiovascular Disease Specialist. The Patient or Authorized Cardiovascular Disease Specialist has agreed to proceed with the [...] to perform an EU (more content not included)...[facility]10-22-2024 Hospital Discharge instructions Patient Education 07/13/2024 23:57:10 [...] who specializes in diseases of the digestive tract(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 How is this treated? There is no [...] Follow these instructions at home: Medicines Take cemn-tpv-tzylmuc and prescription medicines only as told by [...] provider. Document Revised: 03/15/2022 Document Reviewed: 03/15/2022 [employer] Patient Education 2023 [employer]. 07/13/2024 23:57:10 Abdominal Pain, Adult, Qxkw-ph-Liok Abdominal Pain, Adult Many things can cause belly (abdominal) pain. In most cases, belly pain is not a serious problem and can be watched and treated at home. But in some cases, it can be serious. Your doctor will try to find the cause of your belly pain. Follow these instructions at home: Medicines Take mttz-jgm-loicmtu and prescription medicines only as told by [...] provider. Document Revised: 06/26/2023 Document Reviewed: 06/26/2023 [employer] Patient Education 2023 [employer]. Follow Up Care 07/13/2024 18:23:45 With:Ja Bhardwaj Address: [address] [place] [address], [address] [address] [phone] Business (1) When:07/16/2024 Comments:Call Dr for diagnosis based follow up [facility] 10-21-2024 NoteED Patient Education Note Gastroenterology Abdominal Pain, Adult Many things can cause belly (abdominal) pain. In most cases, belly pain is not a serious problem and can be watched and treated at home. But in some cases, it can be serious. Your doctor will try to find the cause of your belly pain. Follow these instructions at home: Medicines ? Take cdpb-hbt-nnzslpq and prescription medicines only as told by [...] provider. Document Revised: 06/26/2023 Document Reviewed: 06/26/2023 [employer] Patient Education ? 2023 [employer]. Immunology Crohn's Disease Crohn's disease is a [...] who specializes in diseases of the digestive tract(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 How is this treated? There is no cure for this condition, and it affects each person differently. Treatment can help youmanage your symptoms. Your treatment may include: ? Medicines. These may be used by themselves or with other treatments (combination therapy). You may be given m (more content not included)...[facility]10-21-2024 NoteHNO ID: [id number] Author: ?, ?, ? Service: ? Author Type: ? Type: Progress Notes Filed: 07/29/2024 10:20 Note Text: Unable to reach patient for refill of Entyvio after 4 call attempts. Pt last refilled medication on 06/18/2024. Will schedule future follow-up in 2 weeks from today's date. Office will be updated if future attempts are unsuccessful. Aniya Alvarez CPhT [facility] P: [phone] F: [phone][facility]10-21-2024 NoteHNO ID: [id number] Author: ?, ?, ? Service: ? Author Type: ? Type: Progress Notes Filed: 08/12/2024 10:27 Note Text: [facility] Discontinuation Assessment: Disease group: Inflammatory Medication: ENTYVIO PEN 108 MG/0.68 ML SUBCUTANEOUS PEN INJECTOR Discontinue reason: Unable to reach patient Aniya Alvarez CPhT [facility] P: [phone] F: [phone]-Titus Medical Center10-09-2024 History of Present illness Narrative* Aniya Alvarez - 07/01/2024 1:16 PM EDT Prior authorization renewal for Enytvio was initiated and is pending review. Plan Name: Ginna Plan Agent: RHIANNON REECE Nelson: [id number] Timeline: Marked urgent Aniya Alvarez CPhT [facility] P: [phone] F: [phone] * Aniya Alvarez - 07/01/2024 1:16 PM EDT [facility] has been servicing patient for cycles/refills of Entyvio. Plan Name: Ginna Phone/Fax: - / - [place] reference number: [id number] Approval Dates: 07/01/2024-07/10/2025 [facility] will continue to service order accordingly. Aniya Alvarez CPhT [facility] P: [phone] F: [phone] documented in this encounterTr[facility]10-09-2024 NoteHNO ID: [id number] Author: ?, ?, ? Service: ? Author Type: ? Type: Progress Notes Filed: 07/01/2024 16:11 Note Text: [facility] has [facility] serv[facility] patient for cycles/refills of Entyvio. Plan Name: Ginna Phone/Fax: - / - [place] reference number: [id number] Approval Dates: 07/01/2024-07/10/2025 [facility] will continue to service order accordingly. Aniya Alvarez CPhT [facility] P: [phone] F: [phone]-Titus Medical Center10-09-2024 NoteHNO ID: [id number] Author: ?, ?, ? Service: ? Author Type: ? Type: Progress Notes Filed: 07/01/2024 13:17 Note Text: Prior authorization renewal for Enytvio was initiated and is pending review. Plan Name: Ginna Plan Agent: RHIANNON REECE Nelson: [id number] Timeline: Marked urgent Aniya Alvarez CPhT [facility] P: [phone] F: [phone]-Titus Medical Center10-08-2024 Hospital Discharge instructions Patient Education 06/30/2024 15:22:17 [...] Follow these instructions at home: Medicines Take ombf-kxb-mmrdrik and prescription medicines only as told by [...] and water are not available, use hand lubricating specialist. ?Change your dressing as told by your [...] gone away. Where to find more information [employer]: [email or web address] [...] provider. Document Revised: 05/01/2023 Document Reviewed: 05/01/2023 [employer] Patient Education 2023 [employer]. Follow Up Care 06/30/2024 11:06:32 With:XXXX NONE Address: [place] When:07/03/2024 14:38:40 Comments:Follow-up with your colorectal surgeon [facility] 10-08-2024 NoteED Patient Education Note Gastroenterology Anorectal [...] these instructions at home: Medicines ? Take oixw-qyk-jhjctje and prescription medicines only as told by [...] and water are not available, use hand lubricating specialist. ? Change your dressing as told by [...] away. Where to find more information ? [employer]: [email or web address] Contact a health care provider if: ? You have any signs of an infection. ? You have a fever or chills. (more content not included)...[facility]09-20-2024 History of Present illness Narrative* Aniya [...] been reviewed prior to dispensing the medication. Hr Director Assessment Patient confirmed: Yes Med/dose confirmed: Yes Supplies needed: No supplies needed Missed doses: No Estimated days supply on hand: 0 Next cycle/dose due: 06/24/24 Copay amount: 0 Payment confirmed: Yes Delivery method: FedEx Signature required: Waived on patient request Delivery address: [address] [place] [address] Delivery date: 06/19/24 Questions or concerns for [...] facility-administered medications on file prior to visit. [facility] SPECIALTY CLINICAL ASSESSMENT - INFLAMMATORY CONDITIONS [...] Alvarez CPhT [facility] P: [phone] F: [phone] documented in this encounterTrinity [facility]09-20-2024 NoteHNO ID: [id number] Author: ?, ?, ? Service: ? Author [...] been reviewed prior to dispensing the medication. Hr Director Assessment Patient confirmed: Yes Med/dose confirmed: Yes Supplies needed: No supplies needed Missed doses: No Estimated days supply on hand: 0 Next cycle/dose due: 06/24/24 Copay amount: 0 Payment confirmed: Yes Delivery method: FedEx Signature required: Waived on patient request Delivery address: [address] [place] [address] [place] [address] Delivery date: 06/19/24 Questions or concerns for [...] facility-administered medications on file prior to visit. [facility] SPECIALTY CLINICAL ASSESSMENT - INFLAMMATORY CONDITIONS [...] Alvarez CPhT [facility] P: [phone] F: [phone]-[facility]09-20-20[facility] History of Present illness Narrative* Aniya Alvarez - 06/12/2024 12:31 PM EDT [facility] servicing patient for cycles/refills of Entyvio. Plan Name: Ginna Phone/Fax: - / - CMM Nelson: [id number] CHEVY reference number: [id number] Approval Dates: 06/12/2024-07/10/2024 Further approvals require updated office visit. [facility] will continue to service order accordingly. Aniya Alvarez CPhT [facility] P: [phone] F: [phone] documented in this encounterTrinity [facility]09-20-2024 NoteHNO ID: [id number] Author: ?, ?, ? Service: ? Author Type: ? Type: Progress Notes Filed: 06/12/2024 12:33 Note Text: [facility] serv[facility] patient for cycles/refills of Entyvio. Plan Name: Ginna Phone/Fax: - / - CM Nelson: [id number] CHEVY reference number: [id number] Approval Dates: 06/12/2024-07/10/2024 Further approvals require updated office visit. [facility] will continue to service order accordingly. Aniya Alvarez CPhT [facility] P: [phone] F: [phone]-[facility]08-23-2024 History of Present illness Narrative* Aniya Alvarez [...] laboratory parameters, disease state markers and outcomes. Hr Director Assessment Patient confirmed: Yes Med/dose confirmed: Yes Supplies needed: No supplies needed Missed doses: No Estimated days supply on hand: 0 Next cycle/dose due: 05/27/24 Copay amount: 0 Payment confirmed: Yes Delivery method: FedEx Signature required: Waived on patient request Delivery address: [address] [place] [address] Delivery date: 05/21/24 Questions or concerns for [...] facility-administered medications on file prior to visit. [facility] SPECIALTY CLINICAL ASSESSMENT - INFLAMMATORY CONDITIONS [...] Alvarez CPhT [facility] P: [phone] F: [phone] documented in this encounterTrinity Health [facility]08-23-2024 NoteHNO ID: [id number] Author: TAYLER HANKS [facility] Service: ? Author Type: ? Type: [...] and outcomes. Tayler Hanks, PharmD Clinical Pharmacist [facility] Pool: P [facility] Pool #: [id number] Hr Director Assessment Patient confirmed: Yes Med/dose confirmed: Yes Supplies needed: No supplies needed Missed doses: No Estimated days supply on hand: 0 Next cycle/dose due: 05/27/24 Copay amount: 0 Payment confirmed: Yes Delivery method: FedEx Signature required: Waived on patient request Delivery address: [address] [place] [id number] Delivery date: 05/21/24 Questions or concerns for [...] facility-administered medications on file prior to visit. [facility] SPECIALTY CLINICAL ASSESSMENT - INFLAMMATORY CONDITIONS [...] Alvarez CPhT [facility] P: [phone] F: [phone]-[facility]08-21-2024 Telephone encounter Note* Telephone Encounter - Yannick Davidson - 05/13/2024 11:03 AM EDT Called and spoke to patient, appt with Dr White has been canceled. Patient states she tried to schedule a follow up with Dr Thakkar and was told he does not treat perianal abscess, advised pt I will look into this matter and call her back. [facility] Work Phone: 1(604) 760-373108-21-2024 Miscellaneous Notes* Telephone Encounter - Yannick Davidson [...] severity of perianal disease documented in this encounterTrinity Health [facility]08-21-2024 Telephone encounter Note * Telephone Encounter - [...] the Crohns and severity of perianal disease [facility] Work Phone: 1(482) 609-536107-17-2024 Hospital Discharge instructions Patient Education 04/08/2024 16:13:11 [...] who specializes in diseases of the digestive tract(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 How is this treated? There is no [...] Follow these instructions at home: Medicines Take uexr-dvd-wbrofqc and prescription medicines only as told by [...] provider. Document Revised: 03/15/2022 Document Reviewed: 03/15/2022 [employer] Patient Education 2022 [employer]. 04/08/2024 16:13:11 Abdominal Pain, Adult Abdominal Pain, [...] Follow these instructions at home: Medicines Take qayd-ars-einxmwm and prescription medicines only as told by [...] Watch your condition for any changes. Take ugra-wnm-qiszzcm and prescription medicines only as told by [...] provider. Document Revised: 10/28/2020 Document Reviewed: 01/18/2020 [employer] Patient Education 2022 [employer]. Follow Up Care 04/08/2024 11:35:23 With:Shilpa العلي Address: [address], [place], [facility] [address] [place] [address] Business (1) When:04/11/2024 14:45:16 Comments:Call Dr for diagnosis based follow up [facility]07-17-2024 NoteED Patient Education Note Gastroenterology Abdominal Pain, [...] these instructions at home: Medicines ? Take xgcb-hus-ukfipnr and prescription medicines only as told by [...] your condition for any changes. ? Take mjwh-cnf-lbjmvrh and prescription medicines only as told by [...] provider. Document Revised: 10/28/2020 Document Reviewed: 01/18/2020 [employer] Patient Education ? 2022 [employer]. Immunology Crohn's Disease Crohn's disease is a [...] include: ? Blood terry (more content not included)...[facility]07-17-2024 Evaluation + Plan noteExtracted from: Title:ED Note Author:Wil Chandler PA-C te:04/08/24 Abdominal pain (R10.9: Unspe cified abdominal pain) Crohn's disease (K50.90: Crohn's disease, unspecified, without complications) Orders: dicyclomine, 10 mg = 1 cap(s), Oral, QID, X 7 day(s), # 28 cap(s), Refills(s) 0, Pharmacy: [facility]/pharmacy #[id number], 167, cm, 04/08/24 11:39:00 EDT, Height/Length [...] Nausea/Vomiting, # 12 tab(s), Refills(s) 0, Pharmacy: [facility]/pharmacy #[id number], 167, cm, 04/08/24 11:39:00 EDT, Height/Length [...] prednisone., # 72 tab(s), Refills(s) 0, Pharmacy: [facility]/pharmacy #[id number], 167, cm, 04/08/24 11:39:00 EDT, Height... [...] Level Manual Diff UA with Cult Rflx [facility]07-10-2024 Telephone encounter Note* Telephone Encounter - Maddie [...] the meantime her prescription be switched to [facility] d/t proximity to home. [facility]07-10-2024 Miscellaneous Notes* Telephone Encounter - Maddie Sevilla [...] the meantime her prescription be switched to [facility] d/t proximity to home. * [...] that would be appreciated! documented in this encounterTrinity Health [facility]07-10-2024 Telephone encounter Note * Telephone Encounter - [...] advise next steps that would be appreciated! [facility]07-10-2024 Nurse Note* Maddie Sevilla RN - 04/01/2024 [...] continued instruction and follow up as directed [facility]07-10-2024 Nurse Note* Maddie Sevilla RN - 04/01/2024 9:42 AM EDT Rola Aguilar Reason for therapy: IBD Ordering Physician: Dr. Humphries Supervising/Billing Physician: Dr. Philip PRE MEDICATIONS ADMINISTERED: Acetaminophen (see MAR) INFUSION MEDICATION ADMINISTERED: Entyvio (see NOV) Dose #: 2 Start: 936 / Stop: 1011 Fevers in last 7 days: No Rash: [...] follow up as directed documented in this encounterTrinity Health [facility]07-03-2024 Telephone encounter Note * Telephone Encounter - Maddie Sevilla RN - 03/25/2024 3:00 PM EDT Called patient re: missed appt for entyvio infusion. Left voicemail reminding patient of loading dose schedule, requesting a return call to us & phone number provided to [facility] [place] [place] infusion center. [facility]07-03-2024 Miscellaneous Notes* Telephone Encounter - Maddie Sevilla RN - 03/25/2024 3:00 PM EDT Called patient re: missed appt for entyvio infusion. Left voicemail reminding patient of loading dose schedule, requesting a return call to us & phone number provided to [facility] [place] [place] infusion center. documented in this encounterTrinity [facility]06-20-2024 Nurse Note* Jagjit Yap RN - 03/12/2024 [...] instructed to call with any further issues [facility]06-20-2024 Nurse Note* Jagjit Yap RN - 03/12/2024 [...] with any further issues documented in this encounterTrinity Health [facility]06-17-2024 Telephone encounter Note * Telephone Encounter - Ira Wilder - 03/09/2024 1:53 PM EDT Infusion scheduled . 03/12. Requested to schedule subsequent visits when she is here. Scheduled follow up with Dr. Humphries on 06/02 at [facility] Thank you Ira Wilder PSS [facility]06-17-2024 Miscellaneous Notes* Telephone Encounter - Ira Wilder - 03/09/2024 1:53 PM EDT Infusion scheduled . 03/12. Requested to schedule subsequent visits when she is here. Scheduled follow up with Dr. Humphries on 06/02 at [facility] Thank you Ira Wilder PSS * Telephone Encounter - Brittny Gan RN - 03/09/2024 1:06 PM EDT Images from the original note were not included. [facility] [place] [place] scheduling team: Please schedule the following Entyvio infusion Infusions to be given on week 0, 2 and 6 ( week of 03/09, 03/23, 04/20) Please call patient with appt details Thank you Brittny Gan RN [facility] Scheduling team: Please schedule the following May with Doctor Diana Please call patient with appt details Thank you Brittny Gan RN I spoke with [employer] [place] plan has been approved Entyvio infusion week 0, 2 and 6 ( week of 03/09, 03/23, 04/20) Pen to start week 14 (06/15/24) I would have scheduling call her to arrange appts [facility] are [facility] for delivery of pen Rola verbalized understanding No further questions Brittny Gan RN Auth/Cert 03/09/2024 11:49 AM Bandar Davalos - - Note: === PHARMACY TEAM ==== APPROVAL RECEIVED Benefit Type: Medical Insurance Name: [employer] Location Tax ID: [id number]( ) Authorization received via fax Drug Name(s) & HCPCS Code(s): J3380 (HCPCS) - INJECTION, VEDOLIZUMAB Approval Date Range: 02-27-2024 to 05-29-2024 Approval #: [id number] Dose & Frequency: 300mg weeks 0,2,6 # [...] ordering Advised pens will be sent to FS for insurance approval Plan for loading dose of infusions on week 0, 2 and 6 will also be sent to insurance Once approval comes back for both infusion and pen we can schedule the infusions at [facility] [place] [place] Advised patient I will be in contact with her on the status Brittny Gan RN documented in this encounterTrinity Health [facility]06-17-2024 Telephone encounter Note * Telephone Encounter - Brittny Gan RN - 03/09/2024 1:06 PM EDT Images from the original note were not included. [facility] [place] [place] scheduling team: Please schedule the following Entyvio infusion Infusions to be given on week 0, 2 and 6 ( week of 03/09, 03/23, 04/20) Please call patient with appt details Thank you Brittny Gan RN [facility] Scheduling team: Please schedule the following May with Doctor Diana Please call patient with appt details Thank you Brittny Gan RN I spoke with [employer] [place] plan has been approved Entyvio infusion week 0, 2 and 6 ( week of 03/09, 03/23, 04/20) Pen to start week 14 (06/15/24) I would have scheduling call her to arrange appts Message routed to [facility] so they are aware for delivery of pen Rola verbalized understanding No further questions Brittny Gan RN Auth/Cert 03/09/2024 11:49 AM Bandar Davalos - - Note: === PHARMACY TEAM ==== APPROVAL RECEIVED Benefit Type: Medical Insurance Name: [employer] Location Tax ID: [id number]( ) Authorization received via fax Drug Name(s) & HCPCS Code(s): J3380 (HCPCS) - INJECTION, VEDOLIZUMAB Approval Date Range: 02-27-2024 to 05-29-2024 Approval #: [id number] Dose & Frequency: 300mg weeks 0,2,6 # Visits/Treatments (if applicable): 3 Temporary Site of Care Approval: N/A [facility]06-16-[facility] Hospital Discharge instructions Patient Education 03/08/2024 15:41:51 [...] who specializes in diseases of the digestive tract(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 How is this treated? There is no [...] Follow these instructions at home: Medicines Take lwsn-pxw-fdcwkcj and prescription medicines only as told by [...] provider. Document Revised: 03/15/2022 Document Reviewed: 03/15/2022 [employer] Patient Education 2022 [employer]. 03/08/2024 15:41:51 Abdominal Pain, Adult Abdominal Pain, [...] Follow these instructions at home: Medicines Take pqxv-xhu-zybnefb and prescription medicines only as told by [...] Watch your condition for any changes. Take xrgx-oyd-zqwzvua and prescription medicines only as told by [...] provider. Document Revised: 10/28/2020 Document Reviewed: 01/18/2020 [employer] Patient Education 2022 [employer]. Follow Up Care 03/08/2024 09:42:02 With:Make sure to follow-up with your primary doctor and your GI as discussed. Return to the emergency room if your pain gets worse or any new symptoms. Address:Unknown When:03/11/2024 15:24:40 [facility]06-16-2024 Evaluation + Plan noteExtracted from: Title:ED Note [...] Beta Hcg Qual UA with Cult Rflx [facility]06-13-2024 Telephone encounter Note* Telephone Encounter - Brittny Gan RN - 03/05/2024 3:03 PM EDT PA on Entyvio infusions still pending Will check status on 03/09/24 Brittny Gan RN [facility]06-12-2024 Hospital Discharge instructions Patient Education 03/04/2024 13:06:48 [...] oral rehydration solution (ORS). This is an nozd-ajg-uotvwkv medicine that helps return your body to [...] drinks, sports drinks, and soda. Eat bland, cypa-jk-lzqvge foods in small amounts as you are able. These foods include bananas, applesauce, rice, lean meats, toast, and crackers. Avoid alcohol. Avoid spicy or fatty foods. Medicines Take yeig-wby-makjwdh and prescription medicines only as told by your health care provider. If you were prescribed an antibiotic medicine, take it as told by your health care provider. Do notstop using the antibiotic even if you start to feel better. General instructions Wash your hands often using soap and water. If soap and water are not available, use a hand lubricating specialist. Others in the household should wash their [...] soap and water are not available, usehand lubricating specialist. Contact a health care provider if your diarrhea gets worse or you have new symptoms. Get help right away if you have signs of dehydration. This information is not intended to replace advice given to you by your health care provider. Make sure you discuss any questions you have with your health care provider. Document Revised: 11/30/2022 Document Reviewed: 03/21/2022 [employer] Patient Education 2022 [employer]. 03/04/2024 13:06:48 Nausea and Vomiting, Adult Nausea [...] water added (diluted fruit juice). Eat bland, umlc-ly-ikrdxp foods in small amounts as you are able. These foods include bananas, applesauce, rice, lean meats, toast, and crackers. Avoid fluids that contain a lot of sugar or caffeine, such as energy drinks, sports drinks, and soda. Avoid alcohol. Avoid spicy or fatty foods. General instructions Take mtdm-eby-jlpdigc and prescription medicines only as told by your health care provider. Drink enough fluid to keep your urine pale yellow. Wash your hands often using soap and water for at least 20 seconds. If soap and water are not available, use hand lubricating specialist. Make sure that everyone in your household [...] eating and drinking to prevent dehydration. Take cart-xqa-tbtasdl and prescription medicines only as told by [...] provider. Document Revised: 03/16/2022 Document Reviewed: 03/16/2022 [employer] Patient Education 2022 [employer]. 03/04/2024 13:06:48 Abdominal Pain, Adult Abdominal Pain, [...] Follow these instructions at home: Medicines Take wxct-too-vrhtsgg and prescription medicines only as told by [...] Watch your condition for any changes. Take cwvc-pjj-vpcuvsz and prescription medicines only as told by [...] provider. Document Revised: 10/28/2020 Document Reviewed: 01/18/2020 [employer] Patient Education 2022 [employer]. Follow Up Care 03/04/2024 09:15:36 With:Make sure to follow-up with your primary doctor and your GI doctor as discussed. Return to the emergency room if your pain gets worse, vomiting recurs or any new symptoms. Address:Unknown When:03/07/2024 12:58:23 [facility]06-12-2024 Evaluation + Plan noteExtracted from: Title:ED Note Author:Lisandro Mishra, Carolyn Ramirez te:03/04/24 1. Abdominal pain (R10.9: Un specified abdominal pain) 2. Vomiting and diarrhea (R11.10: Vomiting, unspecified) Diarrhea, unspecified (R19.7: Diarrhea, unspecified) Orders: dicyclomine, 20 mg = 2 cap(s), Oral, QID, # 20 cap(s), Refills(s) 0, Pharmacy: [facility]/pharmacy #[id number], 167, cm, 03/04/24 9:30:00 EDT, Height/Length [...] Nausea/Vomiting, # 12 tab(s), Refills(s) 0, Pharmacy: [facility]/pharmacy #[id number], 167, cm, 03/04/24 9:30:00 EDT, Height/Length [...] Diagnostic Tests Pending * Urine Culture 03/04/24 [facility]06-09-2024 Hospital Discharge instructions Patient Education 03/01/2024 12:07:13 [...] who specializes in diseases of the digestive tract(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 How is this treated? There is no [...] Follow these instructions at home: Medicines Take mdhm-hme-sdabzco and prescription medicines only as told by [...] provider. Document Revised: 03/15/2022 Document Reviewed: 03/15/2022 [employer] Patient Education 2022 [employer]. 03/01/2024 12:07:09 Managing Anxiety, Adult Managing Anxiety, [...] health careprovider. Avoid caffeine, alcohol, and certain soqq-yhp-mlqvsfv cold medicines. These may make you feel worse. Ask your pharmacist which medicines to avoid. General instructions Take yqrc-wzv-xezvhib and prescription medicines only as told by [...] Depression Association of [place] (ADAA): www.adaa.org National [place] on Mental Illness (PAUL): www.paul.org Contact a [...] the National Suicide Prevention Lifeline at or 579 in the [place] This is open 24 hours a day in the [place] Text the Crisis Text Line at 989964 (in the [place] Summary Taking steps to [...] provider. Document Revised: 04/04/2022 Document Reviewed: 12/31/2021 [employer] Patient Education 2022 [employer] 03/01/2024 12:07:05 Bipolar I Disorder Bipolar I [...] and make symptoms worse. General instructions Take fcou-ofn-dprfmcw and prescription medicines only as told by [...] important. Where to find more information National [place] on Mental Illness: paul.org National [place] of Mental Health: nimh.nih.gov Contact a health [...] department or: Call your local emergency services (338 in the [place] Call a suicide crisis helpline, such as the National Suicide Prevention Lifeline at or 554 in the [place]. This is open 24 hours a day in the [place] Text the Crisis Text Line at 605108 (in the [place] Summary Bipolar I disorder [...] provider. Document Revised: 04/05/2022 Document Reviewed: 03/01/2022 [employer] Patient Education 2022 [employer]. 03/01/2024 12:07:04 Health Risks of Smoking Health [...] to children increases the risk of: Sudden infant syndrome (SIDS). Infections in the nose, throat, [...] Department of Health and Human Services: www.smokefree.gov [place] Lung Association: www.freedomfromsmoking.org [place] Heart Association: www.heart.org Where to find more [...] provider. Document Revised: 09/11/2022 Document Reviewed: 09/11/2022 [employer] Patient Education 2022 [employer]. Follow Up Care 01/27/2024 07:25:50 With:Charles LUNDBERG, AUTO ROLLER-JIMMY, Zuly Andersen Address: [address] [place] [id number] When:Within 6 Month(s) Comments:chronic care [facility] [place] 06-05-2024 Telephone encounter Note* Telephone Encounter - Brittny Gan RN - 02/26/2024 3:01 PM EDT I spoke with Rola yesterday in [place] to discuss process for Entyvio ordering Advised pens will be sent to [facility] for insurance approval Plan for loading dose of infusions on week 0, 2 and 6 will also be sent to insurance Once approval comes back for both infusion and pen we can schedule the infusions at [facility] [place] [place] Advised patient I will be in contact with her on the status Brittny Gan, RN [facility]06-05-2024 History of Present illness Narrative* Marija Cerda - 02/26/2024 1:18 PM EDT [facility] received prescription(s) for Entyvio from Dr. Lee Ann Humphries's office. Benefits investigation was conducted, indicating that a prior authorization is required by patient's insurance plan with [employer] . Encounter will be updated once prior authorization has been submitted by [facility]. Marija Cerda [facility] P: [phone] F:[phone] * Aniya Alavrez - 02/26/2024 1:18 PM EDT Prior authorization for Entyvio was initiated and is pending review. Plan Name: [facility] Plan Agent: CMM PA Nelson: [id number] Timeline: Standard Aniya Alvarez CPhT [facility] P: [phone] F: [phone] documented in this encounterTrinity [facility]06-04-2024 Instructions* Patient Instructions* Lee Ann Humphries DO [...] any questions or concerns. documented in this encounterTrinity Health [facility]06-04-2024 History and physical note * Lee Ann [...] pen option approved. [facility]. I will see her back after she has started the loading infusions and we will continue her prednisone until she is stable at that time. She was encouraged to call with any questions or concerns. [facility]06-04-2024 History and physical note* Lee Ann Humphries [...] pen option approved. [facility]. I will see her back after she has started the loading infusions and we will continue her prednisone until she is stable at that time. She was encouraged to call with any questions or concerns. documented in this encounterTrinity [facility]05-02-2024 Telephone encounter Note * Telephone Encounter - Valentina Vilchis - 01/23/2024 11:14 AM EDT Pt is scheduled in the February 24 3:20pm slot held for her per message below. Thank you, [facility]05-02-2024 Miscellaneous Notes* Telephone Encounter - Valentina Vilchis - 01/23/2024 11:14 AM EDT Pt is scheduled in the February 24 3:20pm slot held for her per message below. Thank you, * Telephone Encounter - Nessa Douglass - 01/21/2024 2:55 PM EDT LVM offering appt of February 24. * Telephone Encounter - Brittny Gan RN [...] Humphries specifically.Jenn Parry * Telephone Encounter - Martha Jaquez PA-C - 01/20/2024 1:50 PM EDT Hi! The patient needs to follow-up with any GI that is available for Crohn's colitis with diverting loop ileostomy. Please arrange with first available provider. Thanks! Martha Jaquez PA-C Gastroenterology and Hepatology [facility]Tr[facility] Telephone encounter Note * Telephone Encounter - Nessa Douglass - 01/21/2024 2:55 PM EDT M offering appt of February 24. [facility]04-30-2024 Telephone encounter Note* Telephone Encounter - Brittny Gan, SHAHBAZ - 01/21/2024 2:06 PM EDT Scheduling team: Please offer patient the following appt 02/24 at 3:20 (slot is on hold) with Doctor Diana Please call patient with appt details Thank you Brittny Gan, RN [facility]04-29-2024 Telephone encounter Note* Telephone Encounter - Lee Ann Humphries DO - 01/20/2024 5:50 PM EDT Please try to arrange follow-up in 4 weeks so we can discuss biologic therapy. [facility] Work Phone: [phone] Telephone encounter Note* Telephone Encounter - Jenn Santiago APRN.CNP - 01/20/2024 4:36 PM EDT Just to provide update-pt expressed desire to follow up with Dr. Humphries specifically.Jenn Parry [facility] Work Phone: [phone] Telephone encounter Note* Telephone Encounter - Martha Jaquez PA-C - 01/20/2024 1:50 PM EDT Hi! The patient needs to follow-up with any GI that is available for Crohn's colitis with diverting loop ileostomy. Please arrange with first available provider. Thanks! Martha Jaquez PA-C Gastroenterology and Hepatology [facility]04-26-[facility]24 Telephone encounter Note* Telephone Encounter - Ted [...] follow up as needed. Ted Rodriguez RN [facility]04-26-2024 Miscellaneous Notes* Telephone Encounter - Ted Brito [...] needed. Ted Rodriguez RN documented in this encounterTr[facility]03-30-2024 Hospital Discharge instructions Patient Education 12/21/2023 21:17:15 [...] who specializes in diseases of the digestive tract(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 How is this treated? There is no [...] Follow these instructions at home: Medicines Take zued-moa-dkwhzlj and prescription medicines only as told by [...] provider. Document Revised: 03/15/2022 Document Reviewed: 03/15/2022 [employer] Patient Education 2022 [employer]. Follow Up Care 12/21/2023 14:44:13 With:Ja Bhardwaj Address: [place], [address] [address]- [phone] Business (1) When:12/24/2023 21:04:53 Comments:You can use [...] new or worsening symptoms. With:Kale RENDON Address: [address] [place] [phone] Business (1) When:12/24/2023 21:04:49 [facility]03-30-2024 Evaluation + Plan noteExtracted from: Title:ED Note [...] new or worsening symptoms. DO ANTON Lakhani [facility]03-17-2024 Hospital Discharge instructions Patient Education 12/08/2023 00:09:55 [...] who specializes in diseases of the digestive tract(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 How is this treated? There is no [...] Follow these instructions at home: Medicines Take qjkm-ujl-mbinepg and prescription medicines only as told by [...] provider. Document Revised: 03/15/2022 Document Reviewed: 03/15/2022 [employer] Patient Education 2022 [employer]. Follow Up Care 12/07/2023 18:42:40 With:Kale RENDON Address: [address] [place] [phone] Business (1) When:Within 3 Day(s) [facility]03-16-2024 Evaluation + Plan noteExtracted from: Title:ED Note [...] days, # 42 tab(s), Refills(s) 0, Pharmacy: [facility]/pharmacy #[id number], 167, cm, 12/07/23 18:59:00 EDT, Height/Length Dosing, 84.9, kg, 11/21... Sodium Chloride 0.9% intravenous solution, 1,000 mL, Soln-IV, IV, Once, Stop date 12/07/23 18:55:00 EDT, STAT, Start date 12/07/23 18:55:00 EDT, Infuse over 61, minute(s) Basic Metabolic Panel Beta hCG Qual CBC w/ Auto Diff CT Abdomen/Pelvis w/ Contrast eGFR Hepatic Function Panel Lipase Level Saline Lock Insert UA With Cult Reflex [facility]03-11-2024 History of Present illness Narrative* Patricia Ramirez, AUTO ROLLER.MYM - 12/02/2023 4:45 PM EDT EARLY VISIT Rola Aguilar is a 28 year old for a 2 week virtual virtual visit using AudioOnly Visit. It required patient-provider interaction for the medical decision making as documented below. I have communicated my name and active licensure. The patient's identity and physical location wereverified at the time of this visit. Either the patient or their legal outreach representative has been informed of the risks and benefits of -- and alternatives to -- treatment through a remote evaluation andconsents to proceed with the evaluation remotely. Delivery Summary: Marcella Marroquin [[id number]] Delivery Information: Delivery Date: 10/24/23 Delivery type: [...] issues Sleep: no sleep concerns, feels rested [place] since delivery: Not resumed Emotional support: Yes [...] 1 tablet by mouth once daily. VIT 66-IVIM-FDQRF-DHA ORAL Take by mouth. SUMAtriptan (IMITREX) 25 [...] needed Patricia Ramirez APRN.CNM documented in this encounterTr[facility]02-23-2024 Nurse Note* Nellie Glass RN - 11/15/2023 2:24 PM EST 2 week virtual visit. Pt has been identified by name and . Webster score assessment completed - see flow sheet. Pt reports abdominal pain, increase BM in ileostomy and rectally. Cody Ramirez CNM notified. Nellie Glass RN documented in this encounterTr[facility]02-23-2024 Instructions* Patient Instructions* Nellie Glass RN - [...] a friend, or practicing your morris or jainism. For more information: support international www..net Support help line:557.225.4903 Emergency hotlines (available all the time, 15/04) National crisis text line: test HOME to 573100 about any type of crisis [place] suicide prevention hotline: 178.814.3861 Flesch- Danielle Grade level :8.1 Approved August 2018. This handout replaces depression published in Volume 58, number6, August 2013 [employer] Www.sharewithwomen.org [facility] Mommy and Me virtual support group 11:30am-1pm Support for mothers with new babies and toddlers Free offering -Join other moms in this causal virtual group setting. -Join with your little one(s) and talk about life with your new baby. -receive support from other new mothers and an experienced pastry finisher. For more information or to register: -[place] childbirth education [email or web address] or call [phone] The Fourth Trimester for women Dealing with the unexpected things that happen to your body in the months after childbirth is worthtalking about. Do you have incontinence, back pain or feelings of instability in your core after childbirth? Join a [facility] pelvic health physical therapist to learn best steps to recover after giving . Additional topics that will be discussed include returning to an exercise regimen, addressing incontinence issues and pelvic floor muscle function, and perineal scar management and evaluating core muscle health. Virtual class Dates and times 12pm: Nov 06 March 04 Jul 01 5pm: December 31 May 06 September 02 [place] online visit [facility] [email or web address] documented in this encounterTr[facility]02-02-2024 History of Past illness Narrative* Problem Noted [...] Overview: Added automatically from request for surgery [id number] Crohn's disease (regional enteritis) 08/22/2018 02/04/2023 Overview: Added automatically from request for surgery [id number] documented as of this encounter (statuses as of 12/02/2023) [facility] History of Present illness Narrative* Zita Dueñas [...] Level: 4 - Moderate documented in this encounterTr[facility]01-09-2024 NoteThe following Patient Education Materials have been given to the patient: [facility] NoteSHORT-STAY SUMMARY DATE OF DISCHARGE: 09/06/2023 [...] and continue to follow up with her quality audit representative in [place] and was discharged to home in satisfactory condition to return or call for any problems. Anoop Lopez M.D. ca Dictated: 09/07/2023 [id number] Transcribed: 09/08/2023[facility] HospitalComment on above:Result Comment: Electronically Signed By: Anoop Lopez MD\.br\Date and Time Signed: 09/11/23 02:14 [id number] NoteThe following Patient Education Materials have been given to the patient: [facility]12-15-2023 Hospital Discharge instructions Follow Up Care 09/06/2023 16:41:53 With:Follow up with primary care provider Address:Unknown When:3 to 4 days Comments:Call for any problems.Call for fever > 100.5 FCall for severe abdominal painCall physician for heavy vaginal bleedingCall physician if symptoms worsenCall today to schedule your follow upReturn for contractions closer, longer, harderReturn for decreased movementReturn if ruptured membranesor vaginal bleeding [facility]12-15-2023 Evaluation + Plan note Diagnostic Tests Pending * Urine Culture 09/06/23 [facility]12-14-2023 History of Past illness Narrative* Problem Noted [...] Overview: Added automatically from request for surgery [id number] Crohn's disease (regional enteritis) 08/22/2018 02/04/2023 Overview: Added automatically from request for surgery [id number] documented as of this encounter (statuses as of 10/25/2023) [facility]12-14-2023 Miscellaneous Notes* Quick Notes - Nae Costa [...] up in 2 weeks documented in this encounterTr[facility]12-01-2023 History of Past illness Narrative* Problem Noted [...] Overview: Added automatically from request for surgery [id number] Crohn's disease (regional enteritis) 08/22/2018 02/04/2023 Overview: Added automatically from request for surgery [id number] documented as of this encounter (statuses as of 09/06/2023) [facility]11-30[facility] Telephone encounter Note* Telephone Encounter - Mary Hancock - 08/22/2023 10:24 AM EST Tried calling patient to add her to schedule. Although chart seems patient is admitted at this time. [facility]11-30-2023 Miscellaneous Notes* Telephone Encounter - Mary Hancock - 08/22/2023 10:24 AM EST Tried calling patient to add her to schedule. Although chart seems patient is admitted at this time. * Telephone Encounter - Rosalba Wolf RN - 08/21/2023 3:26 PM EST Ok to add on Sep 10 at 11:40 or maybe Aug 30 if needs seen sooner. Jaenine Villa Jr., DO Schedulers , please schedule patient per above notes. Thank you Rosalba Wolf RN * Telephone Encounter - Briana Rose RN - 08/21/2023 11:47 AM EST Rosalba, can pt be scheduled with Dr. Villa in [place]?? Please advise. Thank you. Briana Rose RN * Telephone Encounter - Martha Jaquez PA-C - 08/21/2023 11:42 AM EST Hi! The patient is currently 29 weeks with crohn's disease. Most recent MRI showed active inflammation in the ascending, transverse and descending colon. She is hesitant about taking medications, however Dr. Humphries states she should be seen prior to her giving in 4-6 weeks. She lives in [place] so a provider [place] the [place] side ([place] or [place]) would be preferred. Please arrange accordingly. Thanks! Martha Jaquez PA-C Gastroenterology and Hepatology documented in this encounterTr[facility]11-29-2023 Telephone encounter Note * Telephone Encounter - Rosalba Wolf RN - 08/21/2023 3:26 PM EST Ok to add on Sep 10 at 11:40 or maybe Aug 30 if needs seen sooner. Jeanine Villa Jr., DO Schedulers , please schedule patient per above notes. Thank you Rosalba Wolf RN [facility]11-29-2023 Telephone encounter Note* Telephone Encounter - Briana Rose RN - 08/21/2023 11:47 AM EST Rosalba, can pt be scheduled with Dr. Villa in [place]?? Please advise. Thank you. Briana Rose RN [facility] Work Phone: [phone] Telephone encounter Note* Telephone Encounter - Martha Jaquez PA-C - 08/21/2023 11:42 AM EST Hi! The patient is currently 29 weeks with crohn's disease. Most recent MRI showed active inflammation in the ascending, transverse and descending colon. She is hesitant about taking medications, however Dr. Humphries states she should be seen prior to her giving in 4-6 weeks. She lives in [place] so a provider [place] the west side ([place] or [place]) would be preferred. Please arrange accordingly. Thanks! Martha Jaquez PA-C Gastroenterology and Hepatology [facility]11-27-2023 Miscellaneous Notes* Telephone Encounter - Nellie [...] FM. Recommended increase hydration. Message forwarded to certified professional ergonomist provider. Nellie Salgado RN documented in this encounterTr[facility]11-13-2023 Miscellaneous Notes* Telephone Encounter - Rosalba Price RN - 08/05/2023 1:34 PM EST 2nd risk assessment form submitted 08/05/2023. Rosalba Price RN documented in this encounterTrinity [facility]11-09-2023 Miscellaneous Notes* Quick Notes - Nae Costa [...] growth scan next trimester documented in this encounterTrinity Health [facility]11-09-2023 Instructions* Patient Instructions* Nae Costa MD - [...] syphillis test retested. TDAP documented in this encounterTrinity Health [facility]11-04-2023 History of Past illness Narrative* Problem Noted [...] Overview: Added automatically from request for surgery [id number] Crohn's disease (regional enteritis) 08/22/2018 02/04/2023 Overview: Added automatically from request for surgery [id number] documented as of this encounter (statuses as of 2023) [facility]11-04[facility] History of Past illness Narrative* Problem Noted [...] Overview: Added automatically from request for surgery [id number] Crohn's disease (regional enteritis) 08/22/2018 02/04/2023 Overview: Added automatically from request for surgery [id number] documented as of this encounter (statuses as of 08/05/2023) [facility] History of Past illness Narrative* Problem Noted [...] Overview: Added automatically from request for surgery [id number] Crohn's disease (regional enteritis) 08/22/2018 02/04/2023 Overview: Added automatically from request for surgery [id number] documented as of this encounter (statuses as of 08/19/2023) [facility]11-01-2023 Miscellaneous Notes* Telephone Encounter - Anand Key [...] Dr. Igor Key RN documented in this encounterTrinity Health [facility]11-01-2023 Miscellaneous Notes* Telephone Encounter - Ted Brito [...] and left message to call or send [employer] message to schedule an appointment. AdvisedDr. Lagos wanted an appointment during to make sure symptoms are being managed well. Will follow up as needed. Ted Rodriguez RN documented in this encounterTr[facility]10-13-2023 Miscellaneous Notes* Telephone Encounter - Lynn Pena RN - 07/05/2023 9:00 AM EDT 1st risk assessment form submitted at 22.2 wks. Lynn Pena RN documented in this encounterTrinity Health [facility]10-13-2023 Miscellaneous Notes* Telephone Encounter - Nahomy Melton RN - 07/05/2023 8:55 AM EDT Called patient, identified by name and . Informed call is regarding scheduling MFM consult and u/s as ordered by primary OB. Verbalizes understanding, and agreement. G 2 P 1. H/o Crohn's disease, for > 10 years. First full term (40 weeks) baby weighed 5 lb 9 oz. 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 labs/Maternit 21 drawn today. Current medications: Periactin, Reglan and PNV. Appointments offered and accepted Jul 08 at the [place] office, starting at 0800 Instructed to drink 16 oz of water en-route to appointment, verbalizes understanding and agreement.No questions/concerns at this time. documented in this encounterTrinity [facility]10-12-2023 Instructions* Patient Instructions* Nae Costa MD - 07/04/2023 9:20 AM EDT Please select the following link to access the [facility] Your Guide to a Healthy . [email or web address] documented in this encounterTrinity Health [facility]10-12-2023 History of Present illness Narrative* Nae Costa [...] crohns flare in april and did see plaque maker and had an ultrasound confirming dates. She [...] history: Denies any issues but baby was 3cgs7jl at 40 weeks Prior : never History [...] use: No Multivitamin with Folic acid: Yes Spiritism or heritage: No Would refuse blood transfusion [...] HOURS NEEDED FOR NAUSEA AND VOMITING VIT 89-CSPF-YHPNJ-DHA ORAL Take by mouth. No current facility-administered [...] Level: 4 - Moderate documented in this encounterTrinity Health [facility]10-12-2023 Nurse Note* Ronda Shi Ma - 07/04/2023 9:04 AM EDT Executive Asst offered: Patient declines. documented in this encounterTrinity Health [facility]09-03-2023 Hospital Discharge instructions Patient Education 05/25/2023 23:07:00 [...] who specializes in diseases of the digestive tract(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 How is this treated? There is no [...] Follow these instructions at home: Medicines Take otpg-rlz-fpcgbzt and prescription medicines only as told by [...] provider. Document Revised: 03/15/2022 Document Reviewed: 03/15/2022 [employer] Patient Education 2022 [employer]. Follow Up Care 05/25/2023 18:51:31 With:Ja Bhardwaj Address: [address] [facility], [address] [phone] Business (1) When:05/28/2023 With:Kale RENDON Address: [address] [place] [address]- Business (1) When:Within 3 Day(s) [facility]09-02-2023 Evaluation + Plan note Diagnostic Tests Pending * Urine Culture 05/25/23 [facility]08-08-2023 History of Past illness Narrative* Problem [...] Overview: Added automatically from request for surgery [id number] Crohn's disease (regional enteritis) 08/22/2018 02/04/2023 Overview: Added automatically from request for surgery [id number] documented as of this encounter (statuses as of 07/05/2023) [facility] History of Past illness Narrative* Problem Noted [...] OOb and ambulation and IS No skilled [facility] needs at this time. Crohn's colitis 09/09/2018 02/04/2023 Overview: Added automatically from request for surgery [id number] Crohn's disease (regional enteritis) 08/22/2018 02/04/2023 Overview: Added automatically from request for surgery [id number] documented as of this encounter (statuses as of 07/05/2023) [facility] History of Past illness Narrative* Problem Noted [...] Overview: Added automatically from request for surgery [id number] Crohn's disease (regional enteritis) 08/22/2018 02/04/2023 Overview: Added automatically from request for surgery [id number] documented as of this encounter (statuses as of 07/05/2023) [facility] History of Past illness Narrative* Problem Noted [...] Overview: Added automatically from request for surgery [id number] Crohn's disease (regional enteritis) 08/22/2018 02/04/2023 Overview: Added automatically from request for surgery [id number] documented as of this encounter (statuses as of 07/08/2023) [facility] History of Past illness Narrative* Problem Noted [...] Overview: Added automatically from request for surgery [id number] Crohn's disease (regional enteritis) 08/22/2018 02/04/2023 Overview: Added automatically from request for surgery [id number] documented as of this encounter (statuses as of 07/08/2023) [facility] History of Past illness Narrative* Problem Noted [...] Overview: Added automatically from request for surgery [id number] Crohn's disease (regional enteritis) 08/22/2018 02/04/2023 Overview: Added automatically from request for surgery [id number] documented as of this encounter (statuses as of 07/24/2023) [facility] History of Past illness Narrative* Problem Noted [...] Overview: Added automatically from request for surgery [id number] Crohn's disease (regional enteritis) 08/22/2018 02/04/2023 Overview: Added automatically from request for surgery [id number] documented as of this encounter (statuses as of 07/25/2023) [facility]-08-[facility] Miscellaneous Notes* Telephone Encounter - Araceli Choudhury MD - 04/30/2023 12:05 AM EDT [facility] transfer to [facility] 27 yo female with a PMH of crohn's disease, currently 13 weeks , has had 2 weeks of LLQ pain, seen at [facility] ER twice, recommended admission but patient 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 She has had worsening N/V, unable to hold down PO intake, now having more significant diarrhea. Alsoc/o palpitations. Labs unremarkable. Had US showing no complications. Requesting transfer to [facility] for GI and OB consultations and management. Accepted pending bed availability. Patient may need to board at [facility] awaiting bed - discussed to have GI consulted in that event. Araceli Nagrant, MD 04/30/2023 12:05AM documented in this encounterTrinity Health [facility]08-07-2023 NoteHNO ID: [id number] Author: Maddie Ashraf RDMS, BLAKE Service: Radiology Author Type: Ice Grinder Type: Progress Notes Filed: 04/29/2023 7:13 PM [...] Not applicable SIGNED BY: Maddie Ashraf RDMS, BLAKE April 29, 2023 7:13 [facility] [id number] Evaluation + Plan noteExtracted from: Title:ED Note Author:Jess Gunn PA-C Date:04/27/23 1. Abdominal pain in female (R10.9: Unspecified abdominal pain) 2. (Z34.90: Encounter for supervision of normal , unspecified, unspecified trimester) 3. Nausea & vomiting (R11.2: Nausea with vomiting, unspecified) Orders: metoclopramide, 10 mg = 1 tab(s), Oral, q6hr, PRN Nausea/Vomiting, # 30 tab(s), Refills(s) 0, Pharmacy: [facility]/pharmacy #[id number], 167.6, cm, 04/26/23 22:31:00 EDT, Height/Length [...] 87 kg, 2.01, m2 Saline Lock Insert [facility]08-05-2023 Hospital Discharge instructions Patient Education 04/27/2023 03:09:00 Second Trimester of , Ahlz-tu-[place] Second Trimester of The second trimester of [...] Follow these instructions at home: Medicines Take prfd-gci-ozpztbw and prescription medicines only as told by [...] a counselor. Where to find more information [employer]: americanpregnancy.org [employer]: www.acog.org Office [...] provider. Document Revised: 02/15/2021 Document Reviewed: 12/22/2020 [employer] Patient Education 2022 [employer]. 04/27/2023 03:09:00 Crohn's Disease Crohn's Disease Crohn's [...] who specializes in diseases of the digestive tract(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 How is this treated? There is no [...] Follow these instructions at home: Medicines Take pivh-pcz-cfrrrav and prescription medicines only as told by [...] provider. Document Revised: 03/15/2022 Document Reviewed: 03/15/2022 [employer] Patient Education 2022 [employer]. 04/27/2023 03:09:00 Abdominal Pain, Adult, Xqyb-xy-Bwaw Abdominal Pain, Adult Many things can cause belly (abdominal) pain. Most times, belly pain is not dangerous. Many cases of belly pain can be watched and treated at home. Sometimes, though, belly pain is serious. Your doctor will try to find the cause of your belly pain. Follow these instructions at home: Medicines Take fslg-ktv-wrvlgou and prescription medicines only as told by [...] your belly pain for any changes. Take kbjc-wcm-ljzmsid and prescription medicines only as told by [...] provider. Document Revised: 01/18/2020 Document Reviewed: 01/18/2020 [employer] Patient Education 2022 [employer] Follow Up Care 04/26/2023 22:11:15 With:Follow up with Dr Ozuna at [facility] Address:Unknown When:04/30/2023 [place] [id number] Miscellaneous Notes* Telephone Encounter - Rosina Alex APRN.CNP - 04/18/2023 11:53 AM EDTSummary: Recent ER visit- care coordination I received a message from Fernanda Kramer DO, who is a resident in the ED. Please see message below from Fernanda regarding patient's case: Abhi Almaguer! I am one of the residents taking care of Rola here in the ED at [facility]. I apologize if you are off today, [...] the next 1-2 weeks to check in. Rosina Alex APRN.CNP April 18, 2023 12:01 PM [facility] Evaluation + Plan note Extracted from: Title:ED [...] PT & PTT UA With Cult Reflex [facility]07-24-2023 Hospital Discharge instructions Patient Education 04/15/2023 01:12:27 [...] who specializes in diseases of the digestive tract(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 How is this treated? There is no [...] Follow these instructions at home: Medicines Take nwjw-mjs-htilunb and prescription medicines only as told by [...] provider. Document Revised: 03/15/2022 Document Reviewed: 03/15/2022 [employer] Patient Education 2022 [employer]. 04/15/2023 01:12:27 Abdominal Pain, Adult Abdominal Pain, [...] Follow these instructions at home: Medicines Take typn-fmp-hpijyiq and prescription medicines only as told by [...] Watch your condition for any changes. Take paiu-xdm-rzldtco and prescription medicines only as told by [...] provider. Document Revised: 10/28/2020 Document Reviewed: 01/18/2020 [employer] Patient Education 2022 [employer]. Follow Up Care 04/14/2023 23:41:14 With:Kale RENDON Address: [address] [place], [place] [id number] Business (1) When:04/18/2023 Comments:Make sure to follow-up with your GI as instructed. Return to the emergency room if your pain gets worse, vomiting, vaginal bleeding or any new symptoms. [facility]07-23-2023 History of Present illness Narrative* Courtney Swann RN - 04/14/2023 10:11 AM EDTSumjaida: Abstract Rola Aguilar Age 27 Female ([place], [place]) Crohn's disease Referral 27 y/o female [...] importance of weight loss documented in this [facility]Tr[facility]-2023 Miscellaneous Notes* Telephone Encounter - Sara Larry - 04/05/2023 12:20 PM EDT I left voice message and sent my-chart message for patient to call and schedule. Thanks Sara Houston * Telephone Encounter - Qing Ulrich RPh - 04/05/2023 9:09 AM EDT IBD PharmD Appt Called pt as no-show. No reply, left VM. Will send PSR team a message to help r/s and also Techflakes[employer]t message. documented in this encounterTr[facility]23 Hospital Discharge instructions Patient Education 03/10/2023 21:34:08 First Trimester of , Obec-ur-Piyu First Trimester of The first trimester of [...] Follow these instructions at home: Medicines Take jhvc-rcy-arruujl and prescription medicines only as told by [...] your visits. Where to find more information [employer]: americanpregnancy.org [employer]: www.acog.org Office [...] provider. Document Revised: 02/15/2021 Document Reviewed: 12/22/2020 [employer] Patient Education 2022 [employer]. 03/10/2023 21:34:08 Crohn's Disease Crohn's Disease Crohn's [...] who specializes in diseases of the digestive tract(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 How is this treated? There is no [...] Follow these instructions at home: Medicines Take qeka-dqj-fqxkkmw and prescription medicines only as told by [...] provider. Document Revised: 03/15/2022 Document Reviewed: 03/15/2022 [employer] Patient Education 2022 [employer]. 03/10/2023 21:34:08 Abdominal Pain, Adult, Rwhm-bd-Ypfg Abdominal Pain, Adult Many things can cause belly (abdominal) pain. Most times, belly pain is not dangerous. Many cases of belly pain can be watched and treated at home. Sometimes, though, belly pain is serious. Your doctor will try to find the cause of your belly pain. Follow these instructions at home: Medicines Take tsco-hod-fsiwazs and prescription medicines only as told by [...] your belly pain for any changes. Take hphf-vaz-orlpxzf and prescription medicines only as told by [...] provider. Document Revised: 01/18/2020 Document Reviewed: 01/18/2020 [employer] Patient Education 2022 [employer]. Follow Up Care 03/10/2023 17:24:22 With:Anoop Lopez Address: [address] [place] [address] Business (1) When:03/13/2023 21:16:08 Comments:Follow-up with Dr. Lopez for further evaluation of your . With:Vanessa Carver Address: [address] [place] [address]- Business (1) When:03/13/2023 21:16:00 Comments:Follow-up with your primary care provider in 3 to 5 days. If symptoms worsen, do not improve, or new symptoms arise please report back to emergency department for further evaluation. [facility]06-18-2023 Evaluation + Plan note Diagnostic Tests Pending * Urine Culture 03/10/23 [facility]06-14-2023 Miscellaneous Notes* Telephone Encounter - Ted Brito RN - 03/06/2023 11:34 AM EDT Pa submitted will follow up as needed, * Telephone Encounter - Corinne Mendoza - 03/06/2023 9:18 AM EDTSummary: Cortifoam 10% foam requires PA Received fax (scanned into [employer]IN) on 03/05/2023 informing of Cortifoam 10% foam requires PA. To complete PA, visit CMM and use NELSON: [id number] Corinne Mendoza documented in this encounterTr[facility]06-13-2023 Miscellaneous Notes* Telephone Encounter - Ted Brito RN - 03/05/2023 11:23 AM EDT ----- Message from Rut Lagos MD sent at 02/04/2023 10:30 AM EDT ----- Planning to start this patient on IFX and Imuran combination treatment for crohn's disease documented in this encounterTr[facility]05-15-2023 History of Present illness Narrative* Rut Lagos MD - 02/04/2023 8:30 AM EDT NAME: Rola Aguilar [facility] NO: [id number] REASON FOR VISIT Rola Aguilar is a [...] She was treated with PDN, ADA from 2713-7650, lost response due to development of AB, UST from 8944-5112 lost insurance and was not on medications. [...] one year-remission and then developed AB form 3773-4728 UST 1714-1829 Small molecules: No Current Medications Systemic steroids [...] She was treated with PDN, ADA from 7484-7342, lost response due to development of AB, UST from 0048-8680 lost insurance and was not on medications. [...] PDN taper -Consult nutrition, IBD psychologist Dr. French and pharmacist Dr. Ulrich for medication teaching and HCM -Plan to start patient on combination treatment IFX+AZA after discussing risks and benefits -Follow up with [facility] next week Follow up in 4 weeks RESOLVED: Crohn's colitis (HCC) - Primary Overview Added automatically from request for surgery [id number] Relevant Orders CONSULT TO [facility] CL[facility] [...] 31, 2023 1:11 PM documented in this encounterTr[facility]-2023 Hospital Discharge instructions Patient Education 01/25/2023 23:43:22 [...] who specializes in diseases of the digestive tract(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 How is this treated? There is no [...] Follow these instructions at home: Medicines Take bhtc-zws-hodmcsw and prescription medicines only as told by [...] provider. Document Revised: 03/15/2022 Document Reviewed: 03/15/2022 [employer] Patient Education 2022 [employer]. Follow Up Care 01/25/2023 20:50:02 With:Jose Raul PHILLIPS Address: [facility] [address] [facility] [place] [address] Business (1) When:01/28/2023 Comments:Call the [...] you develop any new or worsening symptoms. [facility]05-05-2023 Evaluation + Plan noteExtracted from: Title:ED Note Author:Familia Brito PA-C Jason e:01/25/23 Abdominal pain (R10.9: Unspe cified [...] Date:02/21/2023 01:45:00 PM Scheduled Provider:Karlos RAWLS MD Location[place] Appointment Type:[facility] Follow Up [facility]04-23-2023 Hospital Discharge instructions Patient Education 01/13/2023 16:33:24 [...] Treatment for this condition includes: Antibiotic medicine. Vfeq-stb-ogzebpm medicines to treat discomfort. Drinking enough water [...] Follow these instructions at home: Medicines Take xstw-eti-qncnqmi and prescription medicines only as told by [...] provider. Document Revised: 04/21/2021 Document Reviewed: 04/21/2021 [employer] Patient Education 2022 [employer]. 01/13/2023 16:33:24 Abdominal Pain, Adult Abdominal Pain, [...] Follow these instructions at home: Medicines Take inma-ler-opwqhhm and prescription medicines only as told by [...] Watch your condition for any changes. Take nnie-fnv-cyhvmqs and prescription medicines only as told by [...] provider. Document Revised: 10/28/2020 Document Reviewed: 01/18/2020 [employer] Patient Education 2022 [employer]. Follow Up Care 01/13/2023 14:28:08 With:Karlos RAWLS Address: [address] [place] [address] Business (1) When:01/16/2023 16:20:32 Comments:Call the office of Dr. Rawls to see if he can see you sooner. Call your colorectal surgeon as well to follow-up with him. Return to the emergency room if your pain gets worse or any new symptoms. With:Jose Raul PHILLIPS Address: [address], [place] [address] Business (1) When:01/16/2023 16:20:25 [facility]04-23-2023 Evaluation + Plan noteExtracted from: Title:ED Note Author:Lisandro Mishra, Carolyn Ramirez te:01/13/23 1. Abdominal pain (R10.9: Un specified abdominal pain) 2. Urinary tract infection (N39.0: Urinary tract infection, site not specified) Orders: cephalexin, 500 mg = 1 cap(s), Oral, q6hr, X 7 day(s), # 28 cap(s), Refills(s) 0, Pharmacy: [facility]/pharmacy #[id number], 168, cm, 01/13/23 14:44:00 EDT, Height/Length [...] nausea/vomiting, # 20 tab(s), Refills(s) 0, Pharmacy: [facility]/pharmacy #[id number], 168, cm, 01/13/23 14:44:00 EDT, Height/Length [...] Date:02/21/2023 01:45:00 PM Scheduled Provider:Karlos RAWLS MD Location:[facility] Dig[facility]ive Health Appointment Type:[facility] Follow Up Diagnostic Tests Pending * Urine Culture 01/13/23 [facility]04-19-2023 Hospital Discharge instructions Patient Education 01/09/2023 16:01:41 Nausea and Vomiting, Adult, Ndzn-tl-Lfau Nausea and Vomiting, Adult Nausea is feeling [...] fruit juice). ?Low-calorie sports drinks. Eat bland, okix-dd-cvyhrr foods in small amounts as you are able, such as: ?Bananas. ?Applesauce. ?Rice. ?Low-fat (lean) meats. ?[place]. ?Crackers. Avoid drinking fluids that have a lot of sugar or caffeine in them. This includes energy drinks, sports drinks, and soda. Avoid alcohol. Avoid spicy or fatty foods. General instructions Take ylvl-vwx-sghllwg and prescription medicines only as told by your doctor. Drink enough fluid to keep your pee (urine) pale yellow. Wash your hands often with soap and water for at least 20 seconds. If you cannot use soap and water, use hand lubricating specialist. Make sure that everyone in your home [...] your doctor about eating and drinking. Take dccv-get-elrrbav and prescription medicines only as told by your doctor. Contact your doctor if your symptoms get worse or you have new symptoms. Keep all follow-up visits. This information is not intended to replace advice given to you by your health care provider. Make sure you discuss any questions you have with your health care provider. Document Revised: 03/16/2022 Document Reviewed: 03/16/2022 [employer] Patient Education 2022 [employer]. 01/09/2023 16:01:41 Crohn's Disease Crohn's Disease Crohn's [...] who specializes in diseases of the digestive tract(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 How is this treated? There is no [...] Follow these instructions at home: Medicines Take nwdg-beq-zqlrqkg and prescription medicines only as told by [...] provider. Document Revised: 03/15/2022 Document Reviewed: 03/15/2022 [employer] Patient Education 2022 [employer]. 01/09/2023 16:01:41 Abdominal Pain, Adult, Vhtt-yd-Ixfj Abdominal Pain, Adult Many things can cause belly (abdominal) pain. Most times, belly pain is not dangerous. Many cases of belly pain can be watched and treated at home. Sometimes, though, belly pain is serious. Your doctor will try to find the cause of your belly pain. Follow these instructions at home: Medicines Take miqm-qkx-fvzncna and prescription medicines only as told by [...] your belly pain for any changes. Take bfjg-pte-yqsocnr and prescription medicines only as told by [...] provider. Document Revised: 01/18/2020 Document Reviewed: 01/18/2020 [employer] Patient Education 2022 [employer]. Follow Up Care 01/09/2023 12:41:52 With:Karlos RAWLS Address: [address] [place] [address] Business (1) When:01/12/2023 15:38:20 Comments:follow up with your Gi doctor for futher evaluation of your crohn's disease. With:Jose Raul PHILLIPS Address: [address] [place] [address] Business (1) When:01/12/2023 15:38:06 Comments:Follow-up with your primary care provider in 3 to 5 days. If symptoms worsen, do not improve, or new symptoms arise please report back to emergency department for further evaluation. [facility]04-19-2023 Evaluation + Plan noteExtracted from: Title:ED Note [...] for 2 day(s), 8 tab(s), Refill(s) 0, [facility]/pharmacy #[id number], 168, cm, 01/09/23 12:47:00 EDT, Height/Length [...] day(s), # 40 cap(s), Refills(s) 0, Pharmacy: [facility]/pharmacy #[id number], 168, cm, 01/09/23 12:47:00 EDT, Height/Length [...] Nausea/Vomiting, # 20 tab(s), Refills(s) 0, [id number], cm, 01/09/23 12:47:00 EDT, Height/Length Dosing, 93.2, kg, 01/09/23 12:47:00 EDT, Weight Dosing predniSONE, 50 mg = 1 tab(s), Oral, Daily, X 7 day(s), # 7 tab(s), Refills(s) 0, [id number] 168, cm, 01/09/23 12:47:00 EDT, Height/Length [...] Date:02/21/2023 01:45:00 PM Scheduled Provider:Karlos RAWLS MD Location[place] Dig[facility]ive Health Appointment Type:[facility] Follow Up [facility]01-07-2023 Hospital Discharge instructions Patient Education 09/29/2022 20:30:53 [...] the toilet. 4.Remove the clip or the qszu-jzv-raif fastener from the tail end of the bag. 5.Unroll the tail, then empty the stool into the toilet. 6.Clean the tail with toilet paper or a moist towelette. 7.Reroll the tail, and close it with the clip or the tbkq-ywe-kufb fastener. 8.Wash your hands again. How to [...] may use the cool setting on a communications department chairperson to do this. 5.Use a tracing pattern [...] with your hands, or blow with a communications department chairperson for 5 10 seconds. 9.Remove the paper [...] wet, you can dry it with a communications department chairperson on the cool setting. To prevent odor, [...] 09/11/2004 Document Revised: 12/30/2019 Document Reviewed: 03/05/2018 [employer] Patient Education 2020 [employer]. Follow Up Care 09/29/2022 19:01:28 With:Jose Raul PHILLIPS Address: [address] [place] [phone]- Business (1) When:Within 3 Day(s) [facility]01-07-2023 Evaluation + Plan noteExtracted from: Title:ED Note Author:Alex Sanchez DO Date :1/7/23 Bleeding from colostomy stom a (K94.01: Colostomy hemorrhage) Orders: predniSONE, 40 mg = 2 tab(s), Oral, Daily, X 5 day(s), # 10 tab(s), Refills(s) 0, Pharmacy: [facility] #[id number], 167, cm, 09/29/22 19:14:00 EST, Height/Length Dosing, 87, kg, 09/29/22 19:14:00 EST, Weight Dosing predniSONE, 40 mg = 2 tab(s), Tab, Oral, Once, Stop date 09/29/22 20:21:00 EST, STAT, Start date 09/29/22 20:21:00 EST, 09/29/22 20:21:00 EST Automated Diff Basic Metabolic Panel BB Draw & Hold CBC w/ Auto Diff eGFR Hepatic Function Panel Lipase Level PT & PTT UA With Cult Reflex [facility]09-08-2022 Hospital Discharge instructions Patient Education 05/31/2022 00:22:15 Abdominal Pain, Adult, Ifcg-sk-Xvya Abdominal Pain, Adult Many things can cause belly (abdominal) pain. Most times, belly pain is not dangerous. Many cases of belly pain can be watched and treated at home. Sometimes, though, belly pain is serious. Your doctor will try to find the cause of your belly pain. Follow these instructions at home: Medicines Take xarc-rhs-wkrhjfe and prescription medicines only as told by [...] your belly pain for any changes. Take jbca-byr-mkwitzx and prescription medicines only as told by [...] 02/25/2009 Document Revised: 01/18/2020 Document Reviewed: 01/18/2020 [employer] Patient Education 2020 [employer]. Follow Up Care 05/30/2022 20:34:27 With:Jose Raul PHILLIPS Address: [address] [place] [address] Business (1) When:06/03/2022 Comments:Take the pain medication, nausea medication as prescribed as needed for pain. Please follow-up withyour primary care doctor in addition to colorectal surgery for further evaluation and management. Please return to the ED for any new or worsening symptoms. [facility]09-07-2022 Evaluation + Plan noteExtracted from: Title:ED Note [...] Acid Lipase Level UA With Cult Reflex [facility]06-08-2022 Hospital Discharge instructions Patient Education 02/27/2022 23:28:55 Constipation, Adult, Mgzf-no-Qwdr Constipation, Adult Constipation is when a person: [...] in fiber, or overly processed, such as: ?Spanish fries. ?Hamburgers. ?Cookies. ?Candy. ?Soda. Drink enough fluid to keep your pee (urine) clear or pale yellow. General instructions Exercise regularly or as told by your doctor. Go to the restroom when you feel like you need to poop. Do not hold it in. Take dsum-ghy-pcwqvqh and prescription medicines only as told by [...] 02/25/2009 Document Revised: 08/22/2018 Document Reviewed: 02/27/2017 [employer] Patient Education 2020 [employer]. Follow Up Care 02/27/2022 19:23:49 With:Jose Raul PHILLIPS Address: [address] [place], [place] [phone] Business (1) When:03/02/2022 [facility]03-28-2022 Evaluation + Plan noteExtracted from: Title:ED Note Author:Lani MS III, Nellie Segal Date:12/18/21 1. Anxiety (F41.9: Anxiety d isorder, unspecified) Orders: hydrOXYzine, 1-2 tab(s), Oral, QID, PRN as needed for anxiety, # 20 tab(s), Refills(s) 0, Pharmacy: [facility] [place] [address], 168, cm, 12/18/21 3:53:00 EDT, Height/Length Dosing, [...] Hr. Troponin 6 Hr. Troponin 9 Hr. [facility]03-28-2022 Hospital Discharge instructions Patient Education 12/18/2021 06:34:31 [...] therapies. Follow these instructions at home: Take jfhe-sbu-whxcywn and prescription medicines only as told by [...] 01/04/2014 Document Revised: 08/22/2018 Document Reviewed: 07/30/2017 [employer] Patient Education [employer]. Follow Up Care 12/18/2021 03:43:09 With:[facility] Address:Unknown When:12/21/2021 05:24:44 Comments:Make sure to follow-up with [facility]'s counseling as instructed. Return to the emergency room if you develop thoughts of hurting yourself or any new symptoms. With:Jose Raul PHILLIPS Address: [address] [place] [address] [facility] (1) When:Within 3 Day(s) [facility]11-18-2021 History of Present illness Narrative* Elvira Godoy RN - 08/10/2021 8:45 AM EST Colostomy changed and patient instructed on procedure with verbalized understanding. [facility] Phone: 1(445) 190-218912-20-2018 History of Past illness Narrative* Problem Noted Date Resolved Date Hypomagnesemia 09/11/2018 09/12/2018 Last Assessment & Plan: Assessment: PLAN: Replete if <1.7 Hyponatremia 09/11/2018 09/12/2018 Last Assessment & Plan: Assessment: PLAN: Replete if <136 documented as of this encounter (statuses as of 01/18/2023) [facility] History of Past illness Narrative* Problem Noted Date Resolved Date Hypomagnesemia 09/11/2018 09/12/2018 Last Assessment & Plan: Assessment: PLAN: Replete if <1.7 Hyponatremia 09/11/2018 09/12/2018 Last Assessment & Plan: Assessment: PLAN: Replete if <136 Malnutrition of mild degree 09/11/2018 050 09/2022 Abdominal pain 09/10/2018 01/21/2023 Last Assessment [...] Overview: Added automatically from request for surgery [id number] Crohn's disease (regional enteritis) 08/22/2018 02/04/2023 Overview: Added automatically from request for surgery [id number] documented as of this encounter (statuses as of 02/04/2023) [facility] History of Past illness Narrative* Problem Noted [...] Overview: Added automatically from request for surgery [id number] Crohn's disease (regional enteritis) 08/22/2018 02/04/2023 Overview: Added automatically from request for surgery [id number] documented as of this encounter (statuses as of 03/06/2023) [facility] of Past illness Narrative* Problem Noted [...] Overview: Added automatically from request for surgery [id number] Crohn's disease (regional enteritis) 08/22/2018 02/04/2023 Overview: Added automatically from request for surgery [id number] documented as of this encounter (statuses as of 03/07/2023) [facility] of Past illness Narrative* Problem Noted [...] Overview: Added automatically from request for surgery [id number] Crohn's disease (regional enteritis) 08/22/2018 02/04/2023 Overview: Added automatically from request for surgery [id number] documented as of this encounter (statuses as of 04/05/2023) [facility] of Past illness Narrative* Problem Noted [...] Overview: Added automatically from request for surgery [id number] Crohn's disease (regional enteritis) 08/22/2018 02/04/2023 Overview: Added automatically from request for surgery [id number] documented as of this encounter (statuses as of 04/14/2023) [facility] of Past illness Narrative* Problem Noted [...] Overview: Added automatically from request for surgery [id number] Crohn's disease (regional enteritis) 08/22/2018 02/04/2023 Overview: Added automatically from request for surgery [id number] documented as of this encounter (statuses as of 04/18/2023) [facility] of Past illness Narrative* Problem Noted [...] Overview: Added automatically from request for surgery [id number] Crohn's disease (regional enteritis) 08/22/2018 02/04/2023 Overview: Added automatically from request for surgery [id number] documented as of this encounter (statuses as of 04/30/2023) [facility] noteExtracted from: Title:ED Note Author:Jess [...] Diagnostic Tests Pending * Urine Culture [facility]27/22 [facility] 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, unspecified History of ileostomy Ileostomy status History of Crohn's disease Personal history of unspecified digestive disease documented in this encounter [employer] Phone: evaluation note* Diagnosis Gastroenteritis- Primary Other and unspecified noninfectious gastroenteritis and colitis documented in this encounter [employer] [employer] Phone: evaluation note* Diagnosis Diarrhea, unspecified type- Primary [facility]* Diagnosis 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)- Primary History of endoscopy Other postprocedural status Imaging of gastrointestinal tract abnormal Nonspecific (abnormal) findings on radiological and other examination of gastrointestinal tract Crohn's colitis, unspecified complication (HCC) [facility]* Diagnosis care, subsequent , second trimester- [...] , antepartum (HCC) documented in this encounter [facility] note* Diagnosis Encounter for anatomic survey- Primary care, subsequent , second trimester Obesity affecting in second trimester, unspecified obesity type 22 weeks gestation of state, incidental [facility]* Diagnosis care, subsequent , second trimester- Primary 26 weeks gestation of state, incidental Screening for diabetes mellitus General counseling and advice for contraceptive management Other general counseling and advice for contraceptive management Crohn's disease with complication, unspecified gastrointestinal tract location (HCC)- Primary [facility] Diagnosis care, subsequent , third trimester- [...] for contraceptive management documented in this encounter [facility]* Diagnosis Maternal Crohn's disease affecting in third trimester (HCC)- Primary Crohn's disease of colon with complication (HCC) [facility] Diagnosis At risk for depressed mood during period- Primary Lactating mother care and examination of lactating mother [facility] Diagnosis Crohn's disease of colon [...] location (HCC)- Primary [facility] Diagnosis Crohn's disease of colon with [...] (HCC)- Primary documented in this encounter [facility] note* Diagnosis Crohn's disease of colon with [...] tract location (HCC) [facility]* Diagnosis Crohn's disease of colon with [...] location (HCC) documented in this encounter [facility] note* Diagnosis Crohn's disease of colon with [...] location (HCC) documented in this encounter [facility] noteNo assessment information [facility] Work Phone: Evaluation note* Diagnosis [...] with fistula (HCC) [facility]* Diagnosis Crohn's disease of colon with [...] 12.1 12/22/2020 12.3 documented in this encounter [facility] note* Diagnosis Crohn's disease of perianal region with fistula (HCC)- Primary documented in this encounter [facility] note* Diagnosis Crohn's disease of colon with [...] with fistula (HCC) documented in this encounter [facility] note* Diagnosis Crohn's disease of colon with [...] with fistula (HCC) [facility]* Diagnosis Seizure (CMS/HCC)- Primary Other convulsions RLS (restless legs syndrome) Restless legs syndrome (RLS) Sleep disturbance Unspecified sleep disturbance Lumbar back pain Lumbago Pain in both lower extremities Paresthesia Disturbance of skin sensation [facility]* Diagnosis Crohn's disease of colon with [...] of trunk Anxiety and depression Dysthymic disorder Follow-up examination after colorectal surgery- Primary Follow-up examination, following other surgery 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) Regional enteritis of small intestine Crohn's disease of perianal region with fistula (HCC) [facility] Diagnosis Crohn's disease of colon with [...] of trunk Anxiety and depression Dysthymic disorder Follow-up examination after colorectal surgery- Primary Follow-up examination, following other surgery Attention to ileostomy (HCC) Attention to ileostomy documented in this encounter [facility] course Narrative No data available for this section [facility] Attachments The following attachments cannot be sent through Care Everywhere. * Ostomy Care ([place]) [facility] Discharge instructions* Attachments The following attachments cannot be sent through Care Everywhere. * Gastroenteritis ([place]) [facility] Hospital Discharge instructions No data available for this section [facility] Progress note No data available for this section [facility] Outpatient Procedure (Routine) - Pending Review Specialty Diagnoses / Procedures Referred By Sandra jaimes Referred To Contact [facility] [place] Diagnoses Diarrhea, unspecified type Procedures ILEOSCOPY ENTEROSC >2ND PRTN W/ILEUM W/WO COLLJ SPEC SPX Zhane Quinones MD [address] [place] [address] [facility] [place] [address] Referral ID Status Reason Start Date Expiration Date Visits Requested Visits Authorized [id number] Pending Review Auto-Generat ed Referral 01/18/2023 01/19/2024 1 1 [facility] for referral (narrative)* Diagnostic Procedure Only (Routine) - Authorized Specialty Diagnoses / Procedures Referred By Sandra jaimes Referred To Contact [facility] Diagnoses 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) Procedures OBSTETRIC ULTRASOUND WHI US PREG UTERUS AFTER 1ST [place] [address] [place] [address] [facility] [address] [place] [address] Referral ID Status Reason Start Date Expiration Date Visits Requested Visits Authorized [id number] Authorized Auto-Generat ed Referral 3 09/04/2024 [address] [facility] Summary Purpose Family History No Family [...] Documents on File Type Date Recorded Patient Cardiovascular Disease Specialist Expl anation ACP-Advance Directive ACP-Power of Counselor Supervisor Latest Code Status on File Code Status Date Activated Date Inactivated Comments Full Code 03/14/2016 2:42 AM 03/15/2016 10:29 AM Documents on File Type Date Recorded Patient Cardiovascular Disease Specialist Expl anation Advance Directives and Living Will Power of Counselor Supervisor Latest Code Status on File Code Status [...] sent through Care Everywhere. * Abdominal Pain ([place] African) * Crohn's Disease ([place] African) documented in this encounter* Attachments The following attachments cannot be sent through Care Everywhere. * Ulcerative Colitis ([place] African) * Abdominal Pain (South African) documented in this encounter Assessments Diagnosis Acute [...] (HCC) Procedures CONSULT TO MATERNAL MEDI OFFICE/OUTPATIENT [facility] 60-[place] [address] [place] [address] Referral ID Status Reason Start Date Expiration Date Visits Requested Visits Authorized [id number] Authorized PCP Requested Referral Auto-Generate d Referral 3 07/03/2024 1 1 Specialty Diagnoses / Procedures Referred By Contac t Referred To Contact [facility] Diagnoses care, subsequent , second trimester Procedures OBSTETRIC ULTRASOUND WHI US PREG UTERUS AFTER 1ST [place] [address] [place] [address] [address] Referral ID Status Reason Start Date Expiration Date Visits Requested Visits Authorized [id number] Authorized Auto-Generat ed Referral 3 07/03/2024 1 1 Specialty Diagnoses / Procedures Referred By Contac t Referred To Contact Diagnoses 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) Procedures CONSULT TO [facility] OFFICE/OUTPATIENT [facility] 60-74 MINUTES Rut Lagos MD [address] [place] [address] Lou Colvin, PhD [address] [place] [id number] Referral ID Status Reason Start Date Expiration Date Visits Requested Visits Authorized [id number] Authorized PCP Requested Referral 02/04/2023 02/04/2024 1 1 Specialty Diagnoses / Procedures Referred By Contkaro t Referred To Contact Nutrition Diagnoses 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) Procedures CONSULT TO NUTRITION THERAPY MEDICAL NUTRITION ASSMT&IVNTJ INDIV EACH 15 NE MEDICAL NUTRITION ASSMT&IVNTJ INDIV EACH 15 NE MEDICAL NUTRITION ASSMT&IVNTJ INDIV EACH 15 NE MEDICAL NUTRITION ASSMT&IVNTJ INDIV EACH 15 NE Rut Lagos MD [address] [place] [address] Referral ID Status Reason Start Date Expiration Date Visits Requested Visits Authorized [id number] Authorized PCP Requested Referral 02/04/2023 02/04/2024 1 1 Health Concerns Problem Noted Date Diagnosed Date [facility] Education - [place] 07/04/2023 [place] - [place] 07/04/2023 Problem Noted Date Diagnosed Date [facility] Education - COMMON 07/04/2023 Education - [place] 07/04/2023 Problem Noted Date Diagnosed Date [facility] CC Education - COMMON 07/04/2023 Education - [place] 07/04/2023 Problem Noted Date Diagnosed Date [facility] CC Education - COMMON 07/04/2023 Education - [place] 07/04/2023 Problem Noted Date Diagnosed Date [facility] CC Education - COMMON 07/04/2023 Education - [place] 07/04/2023 Problem Noted Date Diagnosed Date [facility] CC Education - COMMON 07/04/2023 Education - [place] 07/04/2023 Problem Noted Date Diagnosed Date [facility] CC Education - COMMON 07/04/2023 Education - [place] 07/04/2023 Problem Noted Date Diagnosed Date [facility] Education - COMMON 07/04/2023 Education - [place] 07/04/2023 Problem Noted Date Diagnosed Date [facility] CC Education - COMMON 07/04/2023 Education - [place] 07/04/2023 Problem Noted Date Diagnosed Date [facility] CC Education - COMMON 07/04/2023 Education - [place] 07/04/2023 Active Problems Noted Date Diagnosed Date [place] Occ Ther 10/27/2023 Additional Source Comments INFORMATION SOURCE (unrecogn ized section and content) DATE CREATED AUTHOR 07/23/2019 [facility] DATE CREATED AUTHOR AUTHOR'S ORGANIZ ATION 10/31/2021 [facility] DATE CREATED AUTHOR AUTHOR'S ORGANIZ ATION 05/07/2023 [facility] DATE CREATED AUTHOR AUTHOR'S ORGANIZ ATION 03/05/2024 [facility] DATE CREATED AUTHOR AUTHOR'S ORGANIZ ATION 03/08/2024 [facility] DATE CREATED AUTHOR AUTHOR'S ORGANIZ ATION 03/13/2024 [facility] DATE CREATED AUTHOR AUTHOR'S ORGANIZ ATION 04/12/2024 [facility] DATE CREATED AUTHOR AUTHOR'S ORGANIZ ATION 07/02/2024 [facility] DATE CREATED AUTHOR AUTHOR'S ORGANIZ ATION 07/15/2024 [facility] DATE CREATED AUTHOR AUTHOR'S ORGANIZ ATION 07/19/2024 [facility] DATE CREATED AUTHOR AUTHOR'S ORGANIZ ATION 10/07/2024 [facility] DATE CREATED AUTHOR AUTHOR'S ORGANIZ ATION 11/16/2024 [facility] DATE CREATED AUTHOR AUTHOR'S ORGANIZ ATION 11/23/2024 [facility] DATE CREATED AUTHOR AUTHOR'S ORGANIZ ATION 11/24/2024 [facility] DATE CREATED AUTHOR AUTHOR'S ORGANIZ ATION 11/24/2024 [facility] DATE CREATED AUTHOR AUTHOR'S ORGANIZ ATION 11/25/2024 [facility] DATE CREATED AUTHOR AUTHOR'S ORGANIZ ATION 11/26/2024 [facility] DATE CREATED AUTHOR AUTHOR'S ORGANIZ ATION 11/28/2024 [facility] DATE CREATED AUTHOR AUTHOR'S ORGANIZ ATION 11/29/2024 [facility] DATE CREATED AUTHOR AUTHOR'S ORGANIZ ATION 11/30/2024 [facility] DATE CREATED AUTHOR AUTHOR'S ORGANIZ ATION 12/03/2024 [facility] DATE CREATED AUTHOR AUTHOR'S ORGANIZ ATION 12/10/2024 [facility] DATE CREATED AUTHOR AUTHOR'S ORGANIZ ATION 12/12/2024 [facility] DATE CREATED AUTHOR AUTHOR'S ORGANIZ ATION 12/13/2024 [facility] DATE CREATED AUTHOR AUTHOR'S ORGANIZ ATION 12/14/2024 [facility] DATE CREATED AUTHOR AUTHOR'S ORGANIZ ATION 12/17/2024 [facility] DATE CREATED AUTHOR AUTHOR'S ORGANIZ ATION 12/18/2024 [facility] DATE CREATED AUTHOR AUTHOR'S ORGANIZ ATION 12/19/2024 [facility] DATE CREATED AUTHOR AUTHOR'S ORGANIZ ATION 12/26/2024 [facility] DATE CREATED AUTHOR AUTHOR'S ORGANIZ ATION 12/27/2024 [facility] DATE CREATED AUTHOR AUTHOR'S ORGANIZ ATION 12/28/2024 Shellie Dao Kenji reardon DATE CREATED AUTHOR AUTHOR'S ORGANIZ ATION 01/01/2025 [facility] DATE CREATED AUTHOR AUTHOR'S ORGANIZ ATION 01/04/2025 [facility] DATE CREATED AUTHOR AUTHOR'S ORGANIZ ATION 01/05/2025 [facility] DATE CREATED AUTHOR AUTHOR'S ORGANIZ ATION 01/06/2025 [facility] DATE CREATED AUTHOR AUTHOR'S ORGANIZ ATION 01/09/2025 [facility] DATE CREATED AUTHOR AUTHOR'S ORGANIZ ATION 01/15/2025 [facility] DATE CREATED AUTHOR AUTHOR'S ORGANIZ ATION 01/16/2025 [facility] DATE CREATED AUTHOR AUTHOR'S ORGANIZ ATION 01/26/2025 [facility] dical [facility] DATE CREATED AUTHOR AUTHOR'S ORGANIZ ATION 01/31/2025 [facility] DATE CREATED AUTHOR AUTHOR'S ORGANIZ ATION 03/04/2025 [facility] Reason for Visit (unrecogniz ed section and [...] Comments Appointment Reason Comments Appointment Patient Update Barrel Cutter - Other Reason Onset Date Comments 04/30/2023 [...] Referred By Contac t Referred To Contact [facility] Diagnoses care, subsequent , second trimester Procedures OBSTETRIC ULTRASOUND WHI US PREG UTERUS AFTER 1ST [place] [address] [place] [address] [place] [address] [place] [address] Referral ID Status Reason Start Date Expiration Date V isits Requested Visits Authorized [id number] Closed Auto-Generate d Referral 07/04/2023 07/03/2024 1 1 Reason Comments Refill Request Reason Comments Care Reason Comments Barrel Cutter - Other PRAF Reason Comments cramping Bleeding With Reason Comments Care Specialty Diagnoses / Procedures Referred By Contac t Referred To Contact [facility] Diagnoses Crohn's disease of colon with complication (HCC) Procedures OBSTETRIC ULTRASOUND WHI US PREG UTERUS AFTER 1ST [place] [address] [place] [address] [facility] [place] [address] Referral ID Status Reason Start Date Expiration Date V isits Requested Visits Authorized [id number] Closed Auto-Generate d Referral 10/03/2023 10/02/2024 1 1 Reason Comments Early Reason Comments Barrel Cutter - Other Reason Onset Date Comments Appointment 01/20/2024 Reason Comments Follow Up Hospital discharge f /u Reason Onset Date Comments SPP Inflammatory Conditions - Treatment Referral 02/26/2024 [employer] Insurance Authorization 02/26/2024 CHEVY pacheco tted Reason Comments [facility] Bar[facility] Cutter - Other Specialty Diagnoses / Procedures Referred By Sandra t Referred To Contact Diagnoses Crohn's disease of colon with complication (HCC) 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 Reason Comments Results Reason Comments Seizures Reason Comments Post Op Patient here for f/u after having laparoscopic total proctocolectomy, removal of the terminal ileum with an end ileostomy, right colon, mid colon, left colon, sigmoid colon, rectum. 22 modifier for requiring a perineal proctectomy and abdominoperineal resection from below. Reason Comments Non healing surgical wound Reason Comments Care Coordination NO SHOW appointment Reason Comments Care Coordination Missed office appoin tment Reason Comments Post Op S/p EUA and seton pl acement, Crohns Scheduled Active and Recently Administ ered Medications [...] 1623 (New Bag - Prov ider: Kaylyn Sandhu, RN)1820 (Stopped - Provider: Katie White RN) [...] 1530 1624 (Given - Provid er: Kaylyn Sandhu, RN) PRN Medication Order 12/22/2022 12/23/2022 12/24/2022 iopamidol (ISOVUE-370) 76 % injection 75 mL (COMPLETED) 75 mL, IntraVENous, IMG ONCE PRN, 1 dose, Starting on Sat12/24/22 at 1645, Until Sat12/24/22 at 1727, Other 1727 (Given - Provid er: Keysha Raj) Scheduled Medication Order 12/23/2024 12/24/2024 12/25/2024 morphine [...] sources in 24 hours. 2034 (Furnished to [facility] - Provider: Italia Mendoza RN - Comment: sent with patient) Care Teams (unrecognized sec tion and content) Food Service Relationship Specialty Start Date End Date Jose Raul Phillips PA [address] [place] [address] [place] [address] PCP - General 09/10/16 Food Service Relationship Specialty Start Date End Date Kale Rendon MD PCP - General Family Medicine 01/15/17 Karlos Rawls MD Gastroenterology 01/15/17 Food Service Relationship Specialty Start Date End Date Kale Rendon MD PCP - General Family Medicine 01/15/17 Karlos Rawls MD Gastroenterology 01/15/17 Food Service Relationship Specialty Start Date End Date Kale Rendon MD PCP - General Family Medicine 01/15/17 Karlos Rawls MD Gastroenterology 01/15/17 Food Service Relationship Specialty Start Date End Date Kale Rendon MD PCP - General Family Medicine 01/15/17 Karlos Rawls MD Gastroenterology 01/15/17 Food Service Relationship Specialty Start Date End Date Kale Rendon MD PCP - General Family Medicine 01/15/17 Karlos Rawls MD Gastroenterology 01/15/17 Food Service Relationship Specialty Start Date End Date Kale Rendon MD PCP - General Family Medicine 01/15/17 Karlos Rawls MD Gastroenterology 01/15/17 Food Service Relationship Specialty Start Date End Date Kale Rendon MD PCP - General Family Medicine 01/15/17 Karlos Rawls MD Gastroenterology 01/15/17 Food Service Relationship Specialty Start Date End Date Kale Rendon MD PCP - General Family Medicine 01/15/17 Karlos Rawls MD Gastroenterology 01/15/17 Food Service Relationship Specialty Start Date End Date Kale Rendon MD PCP - General Family Medicine 01/15/17 Karlos Rawls MD Gastroenterology 01/15/17 Food Service Relationship Specialty Start Date End Date Kale Rendon MD PCP - General Family Medicine 01/15/17 Karlos Rawls MD Gastroenterology 01/15/17 Food Service Relationship Specialty Start Date End Date Kale Rendon MD PCP - General Family Medicine 01/15/17 Karlos Rawls MD Gastroenterology 01/15/17 Food Service Relationship Specialty Start Date End Date Kale Rendon MD PCP - General Family Medicine 01/15/17 Karlos Rawls MD Gastroenterology 01/15/17 Food Service Relationship Specialty Start Date End Date Kale Rendon MD PCP - General Family Medicine 01/15/17 Karlos Rawls MD Gastroenterology 01/15/17 Food Service Relationship Specialty Start Date End Date Kale Rendon MD PCP - General Family Medicine 01/15/17 Karlos Rawls MD Gastroenterology 01/15/17 Food Service Relationship Specialty Start Date End Date Kale Rendon MD PCP - General Family Medicine 01/15/17 Karlos Rawls MD Gastroenterology 01/15/17 Food Service Relationship Specialty Start Date End Date Kale Rendon MD PCP - General Family Medicine 01/15/17 Karlos Rawls MD Gastroenterology 01/15/17 Food Service Relationship Specialty Start Date End Date Kale Rendon MD PCP - General Family Medicine 01/15/17 Karlos Rawls MD Gastroenterology 01/15/17 Food Service Relationship Specialty Start Date End Date Kale Rendon MD PCP - General Family Medicine 01/15/17 Karlos Rawls MD Gastroenterology 01/15/17 Food Service Relationship Specialty Start Date End Date Kale Rendon MD PCP - General Family Medicine 01/15/17 Karlos Rawls MD Gastroenterology 01/15/17 Food Service Relationship Specialty Start Date End Date Kale Rendon MD PCP - General Family Medicine 01/15/17 Karlos Rawls MD Gastroenterology 01/15/17 Food Service Relationship Specialty Start Date End Date Kale Rendon MD PCP - General Family Medicine 01/15/17 Karlos Rawls MD Gastroenterology 01/15/17 Food Service Relationship Specialty Start Date End Date Kale Rendon MD PCP - General Family Medicine 01/15/17 Karlos Rawls MD Gastroenterology 01/15/17 Food Service Relationship Specialty Start Date End Date Kale Rendon MD PCP - General Family Medicine 01/15/17 Karlos Rawls MD Gastroenterology 01/15/17 Food Service Relationship Specialty Start Date End Date Kale Rendon MD PCP - General Family Medicine 01/15/17 Karlos Rawls MD Gastroenterology 01/15/17 Food Service Relationship Specialty Start Date End Date Kale Rendon MD PCP - General Family Medicine 01/15/17 Karlos Rawls MD Gastroenterology 01/15/17 Zaira Gonzalez, [facility] 04/21/24 Food Service Relationship Specialty Start Date End Date Kale Rendon MD PCP - General Family Medicine 01/15/17 Karlos Rawls MD Gastroenterology 01/15/17 Zaira Gonzalez, [facility] 04/21/24 Food Service Relationship Specialty Start Date End Date Kale Rendon MD PCP - General Family Medicine 01/15/17 Karlos Rawls MD Gastroenterology 01/15/17 Zaira Gonzalez, [facility] 04/21/24 Food Service Relationship Specialty Start Date End Date Klae Rendon MD PCP - General Family Medicine 01/15/17 Karlos Rawls MD Gastroenterology 01/15/17 Zaira Gonzalez, [facility] 04/21/24 Food Service Relationship Specialty Start Date End Date Kale Rendon MD PCP - General Family Medicine 01/15/17 Karlos Rawls MD [facility]astroenterology [facility]15[facility] Food Service Relationship Specialty Start Date End Date Kale Rendon MD PCP - General Family Medicine 01/15/17 Karlos Rawls MD Gastroenterology 01/15/17 Zaira Gonzalez, [facility] 04/21/24 Food Service Relationship Specialty Start Date End Date Kale Rendon MD PCP - General Family Medicine 01/15/17 Karlos Rawls MD Gastroenterology 01/15/17 Zaira Gonzalez, [facility] 04/21/24 Team Status: Active Member Role Status Dates Chester Rendon MD Primary Care Provider Active Start: October 25, 2024 Anshul Tabor DO Attending Provider Active Sta rt: October 25, 2024 Team Status: Inactive Member Role Status Dates Ted Petersen DO Attending Provider Active Sta rt: November 23, 2024 End: November 23, 2024 Food Service Relationship Specialty Start Date End Date Kale Rendon MD PCP - General Family Medicine 01/15/17 Karlos Rawls MD Gastroenterology 01/15/17 Food Service Relationship Specialty Start Date End Date Kale Rendon MD PCP - General Family Medicine 01/15/17 Karlos Rawls MD Gastroenterology 01/15/17 Food Service Relationship Specialty Start Date End Date Kale Rendon MD PCP - General Family Medicine 01/15/17 Karlos Rawls MD Gastroenterology 01/15/17 Food Service Relationship Specialty Start Date End Date Karlos Rawls MD Gastroenterology 01/15/17 Food Service Relationship Specialty Start Date End Date Karlos Rawls MD Gastroenterology 01/15/17 Food Service Relationship Specialty Start Date End Date Karlos Rawls MD Gastroenterology 01/15/17 Food Service Relationship Specialty Start Date End Date Karlos Rawls MD Gastroenterology 01/15/17 Food Service Relationship Specialty Start Date End Date Janie García CNP [address] [place] [address] [place] [address] PCP - General Family Medicine 01/12/25 Karlos Rawls MD Gastroenterology 01/15/17 Food Service Relationship Specialty Start Date End Date Janie García CNP [address] [place] [address] PCP - General Family Medicine 01/12/25 Karlos Rawls MD Gastroenterology 01/15/17 Food Service Relationship Specialty Start Date End Date Magdalene Boyle PA [address] [place] [address] Physician [facility] Neurology 12/15/24 Food Service Relationship Specialty Start Date End Date Magdalene Boyle PA [address] [place] [address] Physician [facility] Neurology 12/15/24 Food Service Relationship Specialty Start Date End Date Janie García CNP [address] [place] [address] PCP - General Family Medicine 01/12/25 Karlos Rawls MD Gastroenterology 01/15/17 Food Service Relationship Specialty Start Date End Date Janie García CNP [address] [place] [address] PCP - General Family Medicine 01/12/25 Karlos Rawls MD Gastroenterology 01/15/17 Food Service Relationship Specialty Start Date End Date Janie García CNP [address] [place] [address] PCP - General Family Medicine 01/12/25 Karlos Rawls MD Gastroenterology 01/15/17 Food Service Relationship Specialty Start Date End Date Janie García CNP [address] [facility] [address] PCP - General Family Medicine 01/12/25 Karlos Rawls MD Gastroenterology 01/15/17 Ordered Prescriptions [...] or prosecute any alcohol or drug abuse patient.[facility] CampusIn the event this information is protected by the Federal Confidentiality of Alcohol and Drug Abuse Patient Records regulations: The Federal rules restrict any use of the information to criminally investigate or prosecute any alcohol or drug abuse patient.[facility] CampusIn the event this information is protected by the Federal Confidentiality of Alcohol and Drug Abuse Patient Records regulations: The Federal rules restrict any use of the information to criminally investigate or prosecute any alcohol or drug abuse patient.[facility] CampusIn the event this information is protected by the Federal Confidentiality of Alcohol and Drug Abuse Patient Records regulations: The Federal rules restrict any use of the information to criminally investigate or prosecute any alcohol or drug abuse patient.[facility] CampusIn the event this information is protected by the Federal Confidentiality of Alcohol and Drug Abuse Patient Records regulations: The Federal rules restrict any use of the information to criminally investigate or prosecute any alcohol or drug abuse patient.[facility] CampusIn the event this information is protected by the Federal Confidentiality of Alcohol and Drug Abuse Patient Records regulations: The Federal rules restrict any use of the information to criminally investigate or prosecute any alcohol or drug abuse patient.[facility] CampusIn the event this information is protected by the Federal Confidentiality of Alcohol and Drug Abuse Patient Records regulations: The Federal rules restrict any use of the information to criminally investigate or prosecute any alcohol or drug abuse patient.[facility] CampusIn the event this information is protected by the Federal Confidentiality of Alcohol and Drug Abuse Patient Records regulations: The Federal rules restrict any use of the information to criminally investigate or prosecute any alcohol or drug abuse patient.[facility] CampusIn the event this information is protected by the Federal Confidentiality of Alcohol and Drug Abuse Patient Records regulations: The Federal rules restrict any use of the information to criminally investigate or prosecute any alcohol or drug abuse patient.[facility] CampusIn the event this information is protected by the Federal Confidentiality of Alcohol and Drug Abuse Patient Records regulations: The Federal rules restrict any use of the information to criminally investigate or prosecute any alcohol or drug abuse patient.[facility] CampusIn the event this information is protected by the Federal Confidentiality of Alcohol and Drug Abuse Patient Records regulations: The Federal rules restrict any use of the information to criminally investigate or prosecute any alcohol or drug abuse patient.[facility] CampusIn the event this information is protected by the Federal Confidentiality of Alcohol and Drug Abuse Patient Records regulations: The Federal rules restrict any use of the information to criminally investigate or prosecute any alcohol or drug abuse patient.[facility] CampusIn the event this information is protected by the Federal Confidentiality of Alcohol and Drug Abuse Patient Records regulations: The Federal rules restrict any use of the information to criminally investigate or prosecute any alcohol or drug abuse patient.[facility] CampusIn the event this information is protected by the Federal Confidentiality of Alcohol and Drug Abuse Patient Records regulations: The Federal rules restrict any use of the information to criminally investigate or prosecute any alcohol or drug abuse patient.[facility] CampusIn the event this information is protected by the Federal Confidentiality of Alcohol and Drug Abuse Patient Records regulations: The Federal rules restrict any use of the information to criminally investigate or prosecute any alcohol or drug abuse patient.[facility] CampusIn the event this information is protected by the Federal Confidentiality of Alcohol and Drug Abuse Patient Records regulations: The Federal rules restrict any use of the information to criminally investigate or prosecute any alcohol or drug abuse patient.[facility] CampusIn the event this information is protected by the Federal Confidentiality of Alcohol and Drug Abuse Patient Records regulations: The Federal rules restrict any use of the information to criminally investigate or prosecute any alcohol or drug abuse patient.[facility] CampusIn the event this information is protected by the Federal Confidentiality of Alcohol and Drug Abuse Patient Records regulations: The Federal rules restrict any use of the information to criminally investigate or prosecute any alcohol or drug abuse patient.[facility] CampusIn the event this information is protected by the Federal Confidentiality of Alcohol and Drug Abuse Patient Records regulations: The Federal rules restrict any use of the information to criminally investigate or prosecute any alcohol or drug abuse patient.[facility] CampusIn the event this information is protected by the Federal Confidentiality of Alcohol and Drug Abuse Patient Records regulations: The Federal rules restrict any use of the information to criminally investigate or prosecute any alcohol or drug abuse patient.[facility] CampusIn the event this information is protected by the Federal Confidentiality of Alcohol and Drug Abuse Patient Records regulations: The Federal rules restrict any use of the information to criminally investigate or prosecute any alcohol or drug abuse patient.[facility] CampusIn the event this information is protected by the Federal Confidentiality of Alcohol and Drug Abuse Patient Records regulations: The Federal rules restrict any use of the information to criminally investigate or prosecute any alcohol or drug abuse patient.[facility] CampusIn the event this information is protected by the Federal Confidentiality of Alcohol and Drug Abuse Patient Records regulations: The Federal rules restrict any use of the information to criminally investigate or prosecute any alcohol or drug abuse patient.[facility] CampusIn the event this information is protected by the Federal Confidentiality of Alcohol and Drug Abuse Patient Records regulations: The Federal rules restrict any use of the information to criminally investigate or prosecute any alcohol or drug abuse patient.[facility] CampusIn the event this information is protected by the Federal Confidentiality of Alcohol and Drug Abuse Patient Records regulations: The Federal rules restrict any use of the information to criminally investigate or prosecute any alcohol or drug abuse patient.[facility] CampusIn the event this information is protected by the Federal Confidentiality of Alcohol and Drug Abuse Patient Records regulations: The Federal rules restrict any use of the information to criminally investigate or prosecute any alcohol or drug abuse patient.[facility] CampusIn the event this information is protected by the Federal Confidentiality of Alcohol and Drug Abuse Patient Records regulations: The Federal rules restrict any use of the information to criminally investigate or prosecute any alcohol or drug abuse patient.[facility] CampusIn the event this information is protected by the Federal Confidentiality of Alcohol and Drug Abuse Patient Records regulations: The Federal rules restrict any use of the information to criminally investigate or prosecute any alcohol or drug abuse patient.[facility] CampusIn the event this information is protected by the Federal Confidentiality of Alcohol and Drug Abuse Patient Records regulations: The Federal rules restrict any use of the information to criminally investigate or prosecute any alcohol or drug abuse patient.[facility] CampusIn the event this information is protected by the Federal Confidentiality of Alcohol and Drug Abuse Patient Records regulations: The Federal rules restrict any use of the information to criminally investigate or prosecute any alcohol or drug abuse patient.[facility] CampusIn the event this information is protected by the Federal Confidentiality of Alcohol and Drug Abuse Patient Records regulations: The Federal rules restrict any use of the information to criminally investigate or prosecute any alcohol or drug abuse patient.[facility] CampusIn the event this information is protected by the Federal Confidentiality of Alcohol and Drug Abuse Patient Records regulations: The Federal rules restrict any use of the information to criminally investigate or prosecute any alcohol or drug abuse patient.[facility] CampusIn the event this information is protected by the Federal Confidentiality of Alcohol and Drug Abuse Patient Records regulations: The Federal rules restrict any use of the information to criminally investigate or prosecute any alcohol or drug abuse patient.[facility] CampusIn the event this information is protected by the Federal Confidentiality of Alcohol and Drug Abuse Patient Records regulations: The Federal rules restrict any use of the information to criminally investigate or prosecute any alcohol or drug abuse patient.[facility] CampusIn the event this information is protected by the Federal Confidentiality of Alcohol and Drug Abuse Patient Records regulations: The Federal rules restrict any use of the information to criminally investigate or prosecute any alcohol or drug abuse patient.[facility] CampusIn the event this information is protected by the Federal Confidentiality of Alcohol and Drug Abuse Patient Records regulations: The Federal rules restrict any use of the information to criminally investigate or prosecute any alcohol or drug abuse patient.[facility] CampusIn the event this information is protected by the Federal Confidentiality of Alcohol and Drug Abuse Patient Records regulations: The Federal rules restrict any use of the information to criminally investigate or prosecute any alcohol or drug abuse patient.[facility] CampusIn the event this information is protected by the Federal Confidentiality of Alcohol and Drug Abuse Patient Records regulations: The Federal rules restrict any use of the information to criminally investigate or prosecute any alcohol or drug abuse patient.[facility] CampusIn the event this information is protected by the Federal Confidentiality of Alcohol and Drug Abuse Patient Records regulations: The Federal rules restrict any use of the information to criminally investigate or prosecute any alcohol or drug abuse patient.[facility] CampusIn the event this information is protected by the Federal Confidentiality of Alcohol and Drug Abuse Patient Records regulations: The Federal rules restrict any use of the information to criminally investigate or prosecute any alcohol or drug abuse patient.[facility] CampusIn the event this information is protected by the Federal Confidentiality of Alcohol and Drug Abuse Patient Records regulations: The Federal rules restrict any use of the information to criminally investigate or prosecute any alcohol or drug abuse patient.[facility] CampusIn the event this information is protected by the Federal Confidentiality of Alcohol and Drug Abuse Patient Records regulations: The Federal rules restrict any use of the information to criminally investigate or prosecute any alcohol or drug abuse patient.[facility] CampusIn the event this information is protected by the Federal Confidentiality of Alcohol and Drug Abuse Patient Records regulations: The Federal rules restrict any use of the information to criminally investigate or prosecute any alcohol or drug abuse patient.[facility] CampusIn the event this information is protected by the Federal Confidentiality of Alcohol and Drug Abuse Patient Records regulations: The Federal rules restrict any use of the information to criminally investigate or prosecute any alcohol or drug abuse patient.[facility] CampusIn the event this information is protected by the Federal Confidentiality of Alcohol and Drug Abuse Patient Records regulations: The Federal rules restrict any use of the information to criminally investigate or prosecute any alcohol or drug abuse patient.[facility] CampusIn the event this information is protected by the Federal Confidentiality of Alcohol and Drug Abuse Patient Records regulations: The Federal rules restrict any use of the information to criminally investigate or prosecute any alcohol or drug abuse patient.[facility] CampusIn the event this information is protected by the Federal Confidentiality of Alcohol and Drug Abuse Patient Records regulations: The Federal rules restrict any use of the information to criminally investigate or prosecute any alcohol or drug abuse patient.[facility] CampusIn the event this information is protected by the Federal Confidentiality of Alcohol and Drug Abuse Patient Records regulations: The Federal rules restrict any use of the information to criminally investigate or prosecute any alcohol or drug abuse patient.[facility] CampusIn the event this information is protected by the Federal Confidentiality of Alcohol and Drug Abuse Patient Records regulations: The Federal rules restrict any use of the information to criminally investigate or prosecute any alcohol or drug abuse patient.[facility] CampusIn the event this information is protected by the Federal Confidentiality of Alcohol and Drug Abuse Patient Records regulations: The Federal rules restrict any use of the information to criminally investigate or prosecute any alcohol or drug abuse patient.[facility] CampusIn the event this information is protected by the Federal Confidentiality of Alcohol and Drug Abuse Patient Records regulations: The Federal rules restrict any use of the information to criminally investigate or prosecute any alcohol or drug abuse patient.[facility] CampusIn the event this information is protected by the Federal Confidentiality of Alcohol and Drug Abuse Patient Records regulations: The Federal rules restrict any use of the information to criminally investigate or prosecute any alcohol or drug abuse patient.[facility] CampusIn the event this information is protected by the Federal Confidentiality of Alcohol and Drug Abuse Patient Records regulations: The Federal rules restrict any use of the information to criminally investigate or prosecute any alcohol or drug abuse patient.[facility] CampusIn the event this information is protected by the Federal Confidentiality of Alcohol and Drug Abuse Patient Records regulations: The Federal rules restrict any use of the information to criminally investigate or prosecute any alcohol or drug abuse patient.[facility] CampusIn the event this information is protected by the Federal Confidentiality of Alcohol and Drug Abuse Patient Records regulations: The Federal rules restrict any use of the information to criminally investigate or prosecute any alcohol or drug abuse patient.[facility] CampusIn the event this information is protected by the Federal Confidentiality of Alcohol and Drug Abuse Patient Records regulations: The Federal rules restrict any use of the information to criminally investigate or prosecute any alcohol or drug abuse patient.[facility] <item> Privacy Markings (unrecogniz ed section and [...] BE BASED ON THE PRIMARY CLINICAL RECORDS. [employer] provides no warranty or guarantee of the accuracy or completeness of information in this document.
--- NOTE | 2025-04-18 12:53 | ED.GENADUL1 ---
HPI HPI - General Adult General Chief complaint: Skin/Abscess/Foreign Body Stated complaint: RECTAL PAIN POST PROCEDURE 12/2024 Time Seen by Provider: 04/18/25 12:39 Source: patient Mode of arrival: walk-in History of Present Illness HPI narrative: 29-year-old female presents to have her surgical wound evaluated. In December she had colectomy as well as removal of the rectum. She still has an open wound but could not get into see the surgeon because she lost her insurance and has to reapply before they will see her. She wanted to come here to make sure that it was healing okay. No fever or vomiting or abdominal pain. Related Data Home Medications ?Medication ?Instructions ?Recorded ?Confirmed buspirone 10 mg tablet 10 mg PO TID 05/18/24 12/28/24 levetiracetam 500 mg tablet mg PO 12/28/24 clonazepam 0.5 mg tablet mg 04/18/25 gabapentin 100 mg capsule mg 04/18/25 Previous Rx's ?Medication ?Instructions ?Recorded hydrocodone 5 mg-acetaminophen 325 1 tab PO Q6H PRN pain 5 days #20 04/18/25 mg tablet tabs Allergies Allergy/AdvReac Type Severity Reaction Status Date / Time NSAIDS (Non-Steroidal AdvReac Severe Abdominal Verified 04/18/25 13:06 Anti-Inflamma Pain Opioid HPI Opioid Management Most Recent Opioid Data: Last Pain Scale 4 10/24/24, 21:14 Review of Systems ROS Narrative A ten point review of systems is negative except as noted above. PFSH PFSH Medical History (Updated 04/18/25 @ 14:00 by Tyson Clarke MD) Ileostomy in place ?Z93.2 - Ileostomy status (ICD-10) Social History Smoking status: Never smoker Little interest or pleasure in doing things: not at all Feeling down, depressed, or hopeless: not at all Exam Narrative Exam Narrative: Nurses note and vital signs reviewed and patient is not hypoxic. General: The patient appears well and in no apparent distress. Patient is resting comfortably on cart. Skin: Warm, dry, no pallor noted. There is no rash noted. Head: Normocephalic, atraumatic Eye: Normal conjunctiva, no drainage Ears, Nose, Mouth, and Throat: oral mucosa is moist. Nares patent. Cardiovascular: Regular Rate and Rhythm Respiratory: Patient is in no distress, no accessory muscle use, lungs are clear to auscultation, no wheezing, rales or rhonchi Back: non-tender GI: Soft and nontender. The buttock area is examined. There is a drain still in place. There is some skin excoriation but there is no purulent drainage or erythema to suggest cellulitis Musculoskeletal: The patient has no evidence of calf tenderness, no pitting edema, symmetrical pulses noted bilaterally Neurological: A&O, normal speech Psychiatric: Cooperative Constitutional Vital Signs, click to edit/add: Last Vital Signs Temp 98.0 F 04/18/25 12:33 Pulse 98 H 04/18/25 12:33 Resp 18 04/18/25 12:33 BP 118/84 04/18/25 12:33 Pulse Ox 100 04/18/25 12:33 O2 Del Method Room Air 04/18/25 12:33 Course Vital Signs Vital signs: Vital Signs Temperature 98.0 F 04/18/25 12:33 Pulse Rate 98 H 04/18/25 12:33 Respiratory Rate 18 04/18/25 12:33 Blood Pressure 118/84 04/18/25 12:33 Pulse Oximetry 100 04/18/25 12:33 Oxygen Delivery Method Room Air 04/18/25 12:33 Temperature 98.0 F 04/18/25 12:33 Pulse Rate 98 H 04/18/25 12:33 Respiratory Rate 18 04/18/25 12:33 Blood Pressure 118/84 04/18/25 12:33 Pulse Oximetry 100 04/18/25 12:33 Oxygen Delivery Method Room Air 04/18/25 12:33 Medical Decision Making MDM Narrative Medical decision making narrative: I do not see any evidence of wound infection. She is prescribed [place] and will follow-up at the soonest possible time with her surgeon. Treatment diagnosis and follow-up were discussed with the patient. Differential Diagnosis Differential Diagnosis: Wound check, infection, postoperative pain Lab Data Lab results reviewed: Yes I reviewed the patient's lab results Labs: Lab Results 04/18/25 Range/Units 12:59 WBC 5.6 (4.0-11.0) 10^3/uL RBC 4.03 L (4.20-5.40) 10^6/uL Hgb 10.1 L (12.0-16.0) g/dL Hct 32.3 L (36.0-48.0) % MCV 80.1 L (81.0-99.0) fL MCH 25.1 L (26.7-34.0) pg MCHC 31.3 (29.9-35.2) g/dL RDW 14.2 (11.0-15.0) % Plt Count 409 (150-450) 10^3/uL MPV 9.2 L (9.5-13.5) fL Neut % (Auto) 75.1 H (43.0-75.0) % Lymph % (Auto) 12.4 L (20.5-60.0) % Elliott % (Auto) 7.5 (1.7-12.0) % Eos % (Auto) 4.3 (0.9-7.0) % Baso % (Auto) 0.5 (0.2-2.0) % Neut # (Auto) 4.2 (1.4-6.5) 10^3/uL Lymph # (Auto) 0.7 L (1.2-3.8) 10^3/uL Elliott # (Auto) 0.4 (0.3-0.8) 10^3/uL Eos # (Auto) 0.2 (0.0-0.7) 10^3/uL Baso # (Auto) 0.0 (0.0-0.1) 10^3/uL Abs Immat Gran (auto) 0.01 (0.00-0.03) 10^3/uL Imm/Tot Granulo (auto) 0.2 (0.0-0.5) % Sodium 139 (136-145) mmol/L Potassium 3.5 (3.5-5.1) mmol/L Chloride 102 (98-107) mmol/L Carbon Dioxide 29.0 (21.0-32.0) mmol/L Anion Gap 11.5 BUN 19.0 H (7.0-18.0) mg/dL Creatinine 0.72 (0.55-1.02) mg/dL Est GFR ( Amer) >60 (>=60 mL/min/1.73m^2) Est GFR (Non-Af Amer) >60 (>=60 mL/min/1.73m^2) BUN/Creatinine Ratio 26.4 Glucose 107 H (74-106) mg/dL Calcium 9.1 (8.5-10.1) mg/dL Discharge Plan Discharge Chief Complaint: Skin/Abscess/Foreign Body Clinical Impression: Visit for wound check Patient Disposition: Home, Self-Care Time of Disposition Decision: 14:00 Condition: Good Mode of Transportation: Private Vehicle Prescriptions / Home Meds: New hydrocodone-acetaminophen 5-325 mg tablet 1 tab PO Q6H PRN (Reason: pain) 5 Days Qty: 20 0RF No Action buspirone 10 mg tablet 10 mg PO TID levetiracetam 500 mg tablet PO clonazepam 0.5 mg tablet gabapentin 100 mg capsule Print Language: Scottish Instructions: Wound Healing and Your Diet (ED) Referrals: [facility] [Primary Care Provider] - 1 week
[2025-04-18 13:09] LABS: Hematocrit 32.3 % (36.0-48.0); Hemoglobin 10.1 g/dL (12.0-16.0); Immature Granulocytes Abs Auto 0.01 10^3/uL (0.00-0.03); Immature Granulocytes Pct Auto 0.2 % (0.0-0.5); Lymphocytes Absolute Auto 0.7 10^3/uL (1.2-3.8); Mean Corpuscular HGB Conc 31.3 g/dL (29.9-35.2); Mean Corpuscular Hemoglobin 25.1 pg (26.7-34.0); Mean Corpuscular Volume 80.1 fL (81.0-99.0); Platelet Count 409 10^3/uL (150-450); Red Blood Count 4.03 10^6/uL (4.20-5.40); White Blood Count 5.6 10^3/uL (4.0-11.0)
[2025-04-18 13:16] LABS: Anion Gap 11.5; Blood Urea Nitrogen 19.0 mg/dL (7.0-18.0); Calcium 9.1 mg/dL (8.5-10.1); Carbon Dioxide 29.0 mmol/L (21.0-32.0); Chloride 102 mmol/L (98-107); Estimated GFR (African America >60 (>=60 mL/min/1.73m^2); Estimated GFR (Non-African Ame >60 (>=60 mL/min/1.73m^2); Glucose 107 mg/dL (74-106); Potassium 3.5 mmol/L (3.5-5.1); Sodium 139 mmol/L (136-145)
[2025-04-18] MEDS: HYDROCODONE/ACET 5-325 MG TABLET 1 TAB PO (13:31)
== END 2025-04-18 14:13 | disposition home or self-care (01) ==
PROVIDERS: Emergency Provider Emergency Medicine
DX: Z48.815 Encounter for surgical aftercare following surgery on the digestive system (principal); Z93.2 Ileostomy status
CPT/HCPCS: 36415; 80048; 85025; 99284

== ENCOUNTER 2025-09-18 18:10 | Emergency (ER) | payer OTHER, SELFPAY ==
--- OUTSIDE RECORDS SUMMARY | 2024-12-18 05:45 | XMS_ITS ---
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 Name Role Phone Mounika Maguire Primary Care Provider Janie Lu Unavailable REASON FOR VISIT EST CARE, HOSP FU: RESP FAILURE Social History Sex Assigned At : Social History Observation Description Sex Assigned At Female Encounters Encounter Location Date Provider Diagnosis [facility] [address] [place] [address] 12/18/2024 Janie Lu Plan Of Treatment Next Appt Details Provider Name:Madelin hodgson, 09/21/2025 02:30:00 PM, [address] [facility] [place], [address], Progress Notes * DELL MARTÍNEZ DDOB: [birth year] (30 yo F)Acc No.[id number]:12/18/2024 Progress Notes Patient: Vidal DELL BASS :?Janie García CNPDOB:1995???Age:29 Y ???Sex:FemaleDate:12/18/2024Phone:[phone]:[address] [facility], [address], [place], [id number]:Mounika Maguire Subjective: * Chief Complaints: * E ST CARE, HOSP FU: RESP FAILURE * Electronic signature of KRISTYN Simpson on 09/18/2025 at 07:40 PM ESTSign off status: Pending * Provider: Cris García CNP Date: 0 12/18/2024 Generated for Printing/Faxing/eTransmitting on:?09/18/2025 07:40 PM EST
--- OUTSIDE RECORDS SUMMARY | 2025-02-24 03:00 | XMS_ITS ---
Author Organization [facility] Servic es Address [address] [place] [address] Care Team Providers Care Jigman Name Role Phone Mounika Maguire Primary Care Provider Allergies No Known Allergies REASON FOR VISIT Patient is here today for a 1 month f/u. Medications Medication SIG (Take, Route, Frequency, Duration) Notes Start Date End Date Status Ondansetron 4 MG Tablet Disintegrating T DAVID 1 TABLET BY MOUTH EVERY 8 HOURS NEEDED FOR NAUSEA AND VOMITING Oral; Duration: 4 Days ActivePromethazine HCl 25 MG TabletTAKE 1 TABLET BY MOUTH EVERY 4 HOURS Oral; Duration: 2 DaysActiveDULoxetine HCl 20 MG Capsule Delayed Release Particles1 capsule Orally Once a day; Duration: 30 days5ActivePropranolol HCl 10 MG Tablet 1 tablet Orally twice a day; Duration: 30 days As needed 5ActiveclonazePAM 0.5 MG Tablet 1 tablet Orally twice a day; Duration: 30 days As needed [id number]/07/2025ActiveLovenox 40 MG/0.4ML Solution Prefilled Syringe0.4 mL Injection Once a day; Duration: 30 day(s)5Active Gabapentin 100 MG CapsuleTAKE 1 CAPSULE BY MOUTH AT BEDTIME Oral; Duration: 30 DaysActivebusPIRone HCl 10 MG TabletOral; Duration: 30 DaysNot-Taking/PRN levETIRAcetam 500 MG TabletTAKE 1 TABLET (500 MG) BY MOUTH IN THE MORNING AND BEFORE BEDTIME Oral; Duration: 30 DaysActivelevETIRAcetam 500 MG TabletOral; Duration: 30 DaysActive Social History Sex Assigned At : Social History Observation Description Sex Assigned At Female Social History Drug/Alcohol:Social InfoQuestionAnswerNotesAUDIT-C (Standard)Did you have a drink containing alcohol in the past year?[id number] Encounters Encounter Location Date Provider Diagnosis [facility] [address] [place] [address] 02/24/2025 Mounika Maguire Plan Of Treatment Next Appt Details Provider Name:Madelin hodgson, 09/21/2025 02:30:00 PM, [address] [facility], [address], Progress Notes * DELL MARTÍNEZ DDOB: [birth year] (30 yo F)Acc No.[id number]:02/24/2025 Behavioral Health Patient: Vidal DELL BASS :?Mounika Maguire, CNPDOB:1995???Age:29 Y ???Sex:FemaleDate:02/24/2025Phone:[phone]:[address], [address], [place], [id number] Subjective: * Chief Complaints: * P atient is here today for a 1 month f/u. 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 ? fistula ? Ileostomy revision w/colectomy 12/2024? Surgical History verified.? * Hospitalization/Major Diagno stic Procedure: see above ? [facility] x 6 days 12/2024? Hospitalization Verified.? * Family History: F ather: unknown. M other: alive, lymphoma, heart disease,. 3 brother(s) , 1 sister(s) . 1 son(s) , 1 daughter(s) - healthy. . F amily History Verified.. Brother- ADHD. * Social History: ???Drug/Alcohol:?AUDIT-C (Standard)?Did you have a drink containing alcohol in the past year??No ?Points?0 ?Interpretation?Negative ???Social History Verified. * Medications: T akinglevETIRAcetam 500 MG Tablet Oral Gabapentin 100 MG Capsule TAKE 1 CAPSULE BY MOUTH AT BEDTIME Oral levETIRAcetam 500 MG Tablet TAKE 1 TABLET (500 MG) BY MOUTH IN THE MORNING AND BEFORE BEDTIME Oral Probiotic Lovenox 40 MG/0.4ML Solution Prefilled Syringe 0.4 mL Injection Once a day Ondansetron 4 MG Tablet Disintegrating TAKE 1 TABLET BY MOUTH EVERY 8 HOURS NEEDED FOR NAUSEA AND VOMITING Oral Promethazine HCl 25 MG Tablet TAKE 1 TABLET BY MOUTH EVERY 4 HOURS Oral clonazePAM 0.5 MG Tablet 1 tablet Orally twice a day As neededDULoxetine HCl 20 MG Capsule Delayed Release Particles 1 capsule Orally Once a day Propranolol HCl 10 MG Tablet 1 tablet Orally twice a day As neededTaking levETIRAcetam 500 MG Tablet Oral Taking Gabapentin 100 MG Capsule TAKE 1 CAPSULE BY MOUTH AT BEDTIME Oral Taking levETIRAcetam 500 MG Tablet TAKE 1 TABLET (500 MG) BY MOUTH IN THE MORNING AND BEFORE BEDTIME Oral Taking Probiotic Taking Lovenox 40 MG/0.4ML Solution Prefilled Syringe 0.4 mL Injection Once a day Taking Ondansetron 4 MG Tablet Disintegrating TAKE 1 TABLET BY MOUTH EVERY 8 HOURS NEEDED FOR NAUSEA AND VOMITING Oral Taking Promethazine HCl 25 MG Tablet TAKE 1 TABLET BY MOUTH EVERY 4 HOURS Oral Taking clonazePAM 0.5 MG Tablet 1 tablet Orally twice a day As neededTaking DULoxetine HCl 20 MG Capsule Delayed Release Particles 1 capsule Orally Once a day Taking Propranolol HCl 10 MG Tablet 1 tablet Orally twice a day As neededNot-Taking/PRNbusPIRone HCl 10 MG Tablet Oral Not-Taking/PRN busPIRone HCl 10 MG Tablet Oral * Allergies: N .K.D.A.yesAllergies Verified. * Electronic signature of ERASTO Vasquez on 09/18/2025 at 07:41 PM ESTSign off status: Pending * Provider: Nishant Maguire CNP Date: 0 02/24/2025 Generated for Printing/Faxing/eTransmitting on:?09/18/2025 07:41 PM EST
--- OUTSIDE RECORDS SUMMARY | 2025-07-09 04:00 | XMS_ITS ---
Author Organization [facility] jiglic es Address [address] [place] [address] Care Team Providers Care Overseamer Name Role Phone Mounika Maguire Primary Care Provider [phone] REASON FOR VISIT BH 1 month f/u Medications Medication SIG (Take, Route, Frequency, Duration) Notes Start Date End Date Status DULoxetine HCl 20 MG Capsule Delayed Release Particles 1 capsule Orally Once a day; Duration: 3 0 days 5ActiveOndansetron 4 MG Tablet DisintegratingTAKE 1 TABLET BY MOUTH EVERY 8 HOURS NEEDED FOR NAUSEA AND VOMITING Oral; Duration: 4 DaysActive Yjcmnyxye03/07/2025ActivePropranolol HCl 10 MG Tablet 1 tablet Orally twice a day; Duration: 30 days As needed 5ActivePromethazine HCl 25 MG TabletTAKE 1 TABLET BY MOUTH EVERY 4 HOURS Oral; Duration: 2 DaysActiveclonazePAM 0.5 MG Tablet 1 tablet Orally twice a day; Duration: 30 days As needed 5ActivebusPIRone HCl 10 MG TabletOral; Duration: 30 DaysNot-Taking/PRN Gabapentin 100 MG Capsule1 capsule at bedtime Orally Once a day; Duration: 30 days5ActiveGabapentin 300 MG Capsule1 capsule Oral twice a day; Duration: 30 daysActive Social History Sex Assigned At : Social History Observation Description Sex Assigned At Female Encounters Encounter Location Date Provider Diagnosis [place] [address] [address] 07/09/2025 Mounika Maguire Plan Of Treatment Next Appt Details Provider Name:Madelin Rodriguez gokul, 09/21/2025 02:30:00 PM, [address] [facility], [place], [address], Progress Notes * DELL MARTÍNEZ DDOB: [birth year] (30 yo F)Acc No.[id number]:07/09/2025 Behavioral Health Patient: PEDRO LUIS FRYEN Ed :?Mounika Maguire, CNPDOB:1995???Age:29 Y ???Sex:FemaleDate:07/09/2025Phone:[phone]:[address], [address], [place], [id number] Subjective: * Chief Complaints: * B H 1 month f/u * Medications: T akingDULoxetine HCl 20 MG Capsule Delayed Release Particles 1 capsule Orally Once a day Probiotic Ondansetron 4 MG Tablet Disintegrating TAKE 1 TABLET BY MOUTH EVERY 8 HOURS NEEDED FOR NAUSEA AND VOMITING Oral Promethazine HCl 25 MG Tablet TAKE 1 TABLET BY MOUTH EVERY 4 HOURS Oral Propranolol HCl 10 MG Tablet 1 tablet Orally twice a day As neededclonazePAM 0.5 MG Tablet 1 tablet Orally twice a day As neededGabapentin 300 MG Capsule 1 capsule Oral twice a day Gabapentin 100 MG Capsule 1 capsule at bedtime Orally Once a day Taking DULoxetine HCl 20 MG Capsule Delayed Release Particles 1 capsule Orally Once a day Taking Probiotic Taking Ondansetron 4 MG Tablet Disintegrating TAKE 1 TABLET BY MOUTH EVERY 8 HOURS NEEDED FOR NAUSEA AND VOMITING Oral Taking Promethazine HCl 25 MG Tablet TAKE 1 TABLET BY MOUTH EVERY 4 HOURS Oral Taking Propranolol HCl 10 MG Tablet 1 tablet Orally twice a day As neededTaking clonazePAM 0.5 MG Tablet 1 tablet Orally twice a day As neededTaking Gabapentin 300 MG Capsule 1 capsule Oral twice a day Taking Gabapentin 100 MG Capsule 1 capsule at bedtime Orally Once a day Not-Taking/PRNbusPIRone HCl 10 MG Tablet Oral Not-Taking/PRN busPIRone HCl 10 MG Tablet Oral Billing Information: * Procedure Codes: Care Plan Details* * Electronic signature of ERASTO Vasquez on 09/18/2025 at 07:41 PM ESTSign off status: Pending * Provider: Nishant Maguire CNP Date: 1 Generated for Printing/Faxing/eTransmitting on:?09/18/2025 07:41 PM EST
--- OUTSIDE RECORDS SUMMARY | 2025-09-07 13:14 | XMS_ITS | Continuity of Care Document ---
Author Organization [facility] Address Unknown Care Team Providers Care Hide Tanner Name Role Phone BELKIS, BRISSA Wallace Primary Care Physician [phone] Encounter FT_FIN [id number] Date(s): 09/07/25 - 09/07/25 [facility] [address] [place], [place] [address] Encounter Diagnosis Crohn's disease(Discharge Diagnosis) - 09/07/25 Chronic abdominal pain(Discharge Diagnosis) - 09/07/25 Other chronic pain(Discharge Diagnosis) - 09/07/25 Discharge Disposition: Home (Routine DC) Attending Physician: Harry Prieto DO Encounter Type: Emergency Allergies, Adverse Reactions, Alerts SubstanceCriticalitySeverityReactionReaction SeverityStatusNSAIDsBleedingActive Treatment Plan Diagnostic Tests Pending * Urine Culture 09/07/25 Future Scheduled Tests Radiology* MRI Brain w/ + w/o Contrast 01/29/25 Functional Status 09/07/25 MRSA/VRE/Other Qindtt-PxTsF-Kpgb Active/HxNoSymptomatic After Exposure to ContagionNoSymptomatic After Travel High-Risk AreaNoDroplet, Contact Isolation VerificationN/AAirborne,Contact Isolation VerificationN/A Functional Status Assessment AssessmentAssessment ComponentResultEffective DateMorse Fall Risk Score35 09/07/25Mental Status Fall Risk MorseOriented to own hmyvcnd51/16/25History of Fall in Last 3 Months CxiqmHs32/16/25Presence of Secondary Diagnosis MorseYes 09/07/25Gait Weak or Impaired Fall Risk MorseNormal, bedrest, gpizkvwr08/16/25 Use of Ambulatory Aid MorseNone, bedrest, wheelchair, nurse09/07/25IV/Heparin Lock Fall Risk QhuiwIse85/16/25 Immunizations Given and Recorded VaccineDateStatusRefusal Reasonmeasles/mumps/rubella virus vaccine10/27/23Recorded measles/mumps/rubella virus vaccine11/13/00Recordeddiphtheria/pertussis, acel/tetanus adult09/19/23Recordedinfluenza virus vaccine, gwffbnylcce67/12/23 EqizcotnWTOV-SyI-8 (COVID-19) mRNA BNT-162b2 vax561LfxcndwfWCEK-SeP-4 (COVID-19) mRNA BNT-162b2 vax4Recordedinfluenza, whole08/12/15Recorded tetanus/diphtheria/pertussis, acel (Tdap) 5 units-2 units-15.5 mcg/0.5 mL IM Susp 0.5 mLGivenvaricella virus nyzsitt31/17/01Recordedpoliovirus vaccine, inactivated11/13/00RecordedDTaP, unspecified formulation11/13/00Recorded Not Given VaccineDateStatusRefusal Reasoninfluenza virus vaccine, erwhflvmthm77/28/14Not GivenParent Or Guardian Refusespneumococcal 23-valent vaccine04/08/14Not Given Patient Refuses 1Reason for Medication: Other (see comment) 2Result Note: obs Medications amoxicillin-clavulanate (Augmentin 875 mg oral tablet) amoxicillin-clavulanate (Augmentin 875 mg oral tablet), 1 tab(s), q12hr Start Date: 12/23/24 Status: Ordered Medication Dispense Status: Completed Total Allowed Fills: 1 Fills Dispensed: 0 busPIRone 10 mg Tab 10 mg = 1 tab(s), Oral, BID, Refills(s) 0 Start Date: 11/24/24 Status: Ordered Medication Dispense Status: Completed Total Allowed Fills: 1 Fills Dispensed: 0 hydrOXYzine hydrochloride 25 mg Tab 25 mg = 1 tab(s), Oral, TID, PRN for anxiety, # 15 tab(s), Refills(s) 0, Pharmacy: [facility]/pharmacy #[id number], 167, cm, 12/30/24 17:06:00 EDT, Height/Length Dosing, 52.5, kg, 12/30/24 17:06:00 EDT, Weight Dosing Start Date: 12/30/24 Status: Ordered Medication Dispense Status: Completed Quantity: 15.0 Unit: tab(s) Total Allowed Fills: 1 Fills Dispensed: 0 Keppra 250 mg Tab 500 mg = 2 tab(s), Oral, BID, # 60 tab(s), Refills(s) 1, Pharmacy: [facility]/pharmacy #[id number], 167, cm, 11/22/24 3:24:00 EST, Height/Length Dosing, 57, kg, 11/22/24 3:24:00 EST, Weight Dosing Start Date: 11/25/24 Status: Ordered Medication Dispense Status: Completed Quantity: 60.0 Unit: tab(s) Total Allowed Fills: 2 Fills Dispensed: 0 magnesium glycinate 100 mg oral capsule 200 mg = 2 cap(s), Oral, Daily, # 60 cap(s), Refills(s) 0, [id number] 167, cm, 12/09/24 17:34:00 EDT, Height/Length Dosing, 52.3, kg, 12/09/24 17:34:00 EDT, Weight Dosing Start Date: 12/09/24 Status: Ordered Medication Dispense Status: Completed Quantity: 60.0 Unit: cap(s) Total Allowed Fills: 1 Fills Dispensed: 0 Walton 325 mg-5 mg oral tablet 1 tab(s), Oral, q4hr for pain, 12 tab(s), Refill(s) 0, [facility] #[id number], 167, cm, 04/25/25 10:35:00 EDT, Height/Length Dosing, 49.4, kg, 04/25/25 10:35:00 EDT, Weight Dosing Start Date: 04/25/25 Status: Ordered Medication Dispense Status: Completed Quantity: 12.0 Unit: tab(s) Total Allowed Fills: 1 Fills Dispensed: 0 Walton 325 mg-5 mg oral tablet 1 tab(s), Oral, q6hr for pain for 3 day(s), 8 tab(s), Refill(s) 0, [facility] #[id number], 167, cm, 09/07/25 11:19:00 EST, Height/Length Dosing, 78.4, kg, 09/07/25 11:19:00 EST, Weight Dosing Start Date: 09/07/25 Stop Date: 09/10/25 Status: Ordered Medication Dispense Status: Completed Quantity: 8.0 Unit: tab(s) Total Allowed Fills: 1 Fills Dispensed: 0 Indications: Crohn's disease, unspecified, without complications; ondansetron 4 mg Dis Tab 4 mg = 1 tab(s), Oral, q6hr, # 12 tab(s), Refills(s) 0, Pharmacy: [facility]/pharmacy #[id number], 167, cm, 10/02/24 14:00:00 EST, Height/Length Dosing, 53.1, kg, 10/02/24 14:00:00 EST, Weight Dosing Start Date: 10/02/24 Status: Ordered Medication Dispense Status: Completed Quantity: 12.0 Unit: tab(s) Total Allowed Fills: 1 Fills Dispensed: 0 oxyCODONE 5 mg Cap 5 mg = 1 cap(s), Oral, q6hr, PRN for pain, # 10 cap(s), Refills(s) 0, Pharmacy: [facility]/pharmacy #[id number],167, cm, 12/23/24 13:00:00 EDT, Height/Length Dosing, 53.2, kg, 12/23/24 13:00:00 EDT, Weight Dosing Start Date: 12/23/24 Status: Ordered Medication Dispense Status: Completed Quantity: 10.0 Unit: cap(s) Total Allowed Fills: 1 Fills Dispensed: 0 oxyCODONE 5 mg Tab 5 mg = 1 tab(s), Oral, q6hr, PRN for pain, # 4 tab(s), Refills(s) 0, Pharmacy: [facility]/pharmacy #[id number], 167, cm, 12/30/24 17:06:00 EDT, Height/Length Dosing, 52.5, kg, 12/30/24 17:06:00 EDT, Weight Dosing Start Date: 12/30/24 Status: Ordered Medication Dispense Status: Completed Quantity: 4.0 Unit: tab(s) Total Allowed Fills: 1 Fills Dispensed: 0 promethazine 25 mg Tab 25 mg = 1 tab(s), Oral, q4hr, # 12 tab(s), Refills(s) 0, [id number] 167, cm, 12/23/24 13:00:00 EDT, Height/Length Dosing, 53.2, kg, 12/23/24 13:00:00 EDT, Weight Dosing Start Date: 12/23/24 Status: Ordered Medication Dispense Status: Completed Quantity: 12.0 Unit: tab(s) Total Allowed Fills: 1 Fills Dispensed: 0 promethazine 25 mg Tab 25 mg = 1 tab(s), Oral, q6hr, PRN as needed for nausea/vomiting, # 20 tab(s), Refills(s) 0, [id number], 168, cm, 01/13/23 14:44:00 EDT, Height/Length Dosing, 93.2, kg, 01/13/23 14:44:00 EDT, Weight Dosing Start Date: 01/13/23 Status: Ordered Medication Dispense Status: Completed Quantity: 20.0 Unit: tab(s) Total Allowed Fills: 1 Fills Dispensed: 0 Zofran ODT 4 mg Tab-Dis 4 mg = 1 tab(s), Oral, q8hr, PRN Nausea/Vomiting, # 12 tab(s), Refills(s) 0, [id number], 167, cm, 12/30/24 17:06:00 EDT, Height/Length Dosing, 52.5, kg, 12/30/24 17:06:00 EDT, Weight Dosing Start Date: 12/30/24 Status: Ordered Medication Dispense Status: Completed Quantity: 12.0 Unit: tab(s) Total Allowed Fills: 1 Fills Dispensed: 0 Zofran ODT 4 mg Tab-Dis 4 mg = 1 tab(s), Oral, q6hr, # 12 tab(s), Refills(s) 0, [id number], 167, cm, 12/09/24 17:34:00 EDT, Height/Length Dosing, 52.3, kg, 12/09/24 17:34:00 EDT, Weight Dosing Start Date: 12/09/24 Status: Ordered Medication Dispense Status: Completed Quantity: 12.0 Unit: tab(s) Total Allowed Fills: 1 Fills Dispensed: 0 Problem List ConditionConfirmationCourseEffective DatesStatusHealth StatusInformantAbdominal painConfirmedActiveAnemiaConfirmedActiveAnxiety disorder due to medical conditionConfirmedActiveBipolar depressionConfirmedActiveCrohn's disease ConfirmedActiveMechanical deep vein thrombosis (DVT) prophylaxis in place ConfirmedActiveEczemaConfirmedActiveFistulaConfirmedResolvedGeneralized anxiety disorderConfirmedActiveH/O psoriasisConfirmedActiveS/P ileostomyConfirmedActive Impaired skin ordwnsutr7CsbcqdwusLcmzrgGUK (irritable bowel syndrome)2Confirmed ActivePanic attacksConfirmedResolvedPregnancyConfirmed05/02/14 - 02/03/15Resolved AolhfygvxAlhvaxzgb71/15/23 - 4ResolvedPressure ulcer of coccygeal region, stage 3ConfirmedActivePressure ulcer of left buttock, stage 3ConfirmedActive Pressure ulcer of right buttock, stage 3ConfirmedActiveProtein-calorie malnutrition, severeConfirmedActiveSinus tachycardiaConfirmedActiveSmoker3 ConfirmedActiveUlcerative colitisConfirmedActiveVitamin A deficiencyConfirmed ActiveVitamin D deficiencyConfirmedResolved 1Problem added on documentation of skin impairments. 2 with diarrhea 3Added secondary to documentation in Social History. Procedures ProcedureDateRelated DiagnosisBody SiteStatusIncision and drainage of ischiorectal and/or perirectal abscess (separate procedure)07/20/24Completed Incision and drainage of vulva or perineal jxcybza27/28/24CompletedPlacement of seton07/20/24CompletedSurgical treatment of anal fistula (fistulectomy/fistulotomy); cpaxgsqjtmgy92/28/24CompletedColonoscopy, flexible, proximal to splenic flexure; diagnostic, with or without collection of specim en(s) by brushing or washing, with or without colon decompression (separate procedure)01/20/24CompletedSmall intestinal endoscopy, enteroscopy beyond second portion of duodenum, including ileum; diagnostic, with or without collection of specimen(s) by brushing or washing (separate procedure)01/20/24CompletedCesarean delivery only;10/24/23CompletedSalpingectomy, complete or partial, unilateral or bilateral (separate procedure)10/24/2384PmfecdypmXlkaijpkovl23/28/23Completed Colonoscopy, flexible, proximal to splenic flexure; diagnostic, with or without collection of specimen(s) by brushing or washing, with or without colon decompression (separate procedure)01/18/23CompletedSmall intestinal endoscopy, enteroscopy beyond second portion of duodenum, including ileum; diagnostic, with or without collection of specimen(s) by brushing or washing (separate procedure) 01/18/2337FdvbchdmrUhuonwzczns4267TtasthlavPhdegjymshjbqjncoxjgrrwormNvtwuzihg History of - ileostomy (context-dependent category)CompletedHistory of ileostomy Completed 1MUSCOSAL ULCERATIONS IN THE SIGMOID COLON PER DR NATASHA ACOSTA @ [facility] Results Laboratory List NameDateBasic Metabolic Panel (BMP)09/07/25Beta hCG Qual09/07/25CBC w/ Auto Diff 09/07/25Hepatic Function Panel09/07/25Lipase Level09/07/25UA with Cult Rflx 09/07/25UA with Cult Rflx SP111/08/2473uCPM19/16/25 Most recent to oldest [Reference Range]:1UA Bacteria [Trace /HPF]Trace /HPF (09/07/25 11:28 AM)UA Bili [Negative mg/dL]Negative mg/dL (09/07/25 11:28 AM)UA Color [Yellow]Light-Yellow1 (09/07/25 11:28 AM)UA Glucose [Negative mg/dL]Negative mg/dL (09/07/25 11:28 AM)UA Ketones [Negative mg/dL]Negative mg/dL (09/07/25 11:28 AM)UA Leuk Est [Negative Cristela/uL]500 Cristela/uL Cristela/uL *ABN* (09/07/25 11:28 AM)UA Mucous [Negative graded/LPF]Trace graded/LPF (09/07/25 11:28 AM)UA Nitrite [Negative mg/dL]Negative mg/dL (09/07/25 11:28 AM)UA Protein [Negative mg/dL]Negative mg/dL (09/07/25 11:28 AM)UA RBC [0-3 graded/HPF]4-20 graded/HPF *ABN* (09/07/25 11:28 AM)UA Squam Epithelial5-8 graded/HPF *NA* (09/07/25 11:28 AM)UA Urobilinogen [Negative mg/dL]Negative mg/dL (09/07/25 11:28 AM)UA WBC [0-5 graded/HPF]31-75 graded/HPF *ABN* (09/07/25 11:28 AM)Beta hCG QlNegative (09/07/25 11:28 AM)UA Spec DescClean Catch (09/07/25 11:28 AM)UA Blood [Negative mg/dL]Trace mg/dL *ABN* (09/07/25 11:28 AM)UA Clarity [Clear]Clear (09/07/25 11:28 AM)A/G Ratio [1.1-2.2]0.9 *LOW* (09/07/25 11:28 AM)BUN/Creat Ratio [10-20]15 (09/07/25 11:28 AM)AGAP [6-16 mEq/L]14 mEq/L (09/07/25 11:28 AM)Albumin Lvl [3.3-5.0 gm/dL]4.2 gm/dL (09/07/25 11:28 AM)Alk Phos [21-98 Int._Unit/L]112 Int._Unit/L *HI* (09/07/25 11:28 AM)ALT [6-46 Int._Unit/L]11 Int._Unit/L (09/07/25 11:28 AM)AST [5-43 Int._Unit/L]14 Int._Unit/L (09/07/25 11:28 AM)Basophil Auto [0.0-2.0 %]0.4 % (09/07/25 11:28 AM)Bili Direct [0.0-0.4 mg/dL]0.1 mg/dL (09/07/25 11:28 AM)Bili Total [0.0-1.1 mg/dL]0.3 mg/dL (09/07/25 11:28 AM)CO2 [21-31 mmol/L]23 mmol/L (09/07/25 11:28 AM)Eos Auto [0.0-8.0 %]0.0 % (09/07/25 AM)Glucose Lvl [55-199 mg/dL]136 mg/dL (09/07/25 AM)Hct [34.0-46.0 %]34.0 % (09/07/25 AM)Hgb [12.0-16.0 gm/dL]10.9 gm/dL *LOW* (09/07/25 AM)Lipase Lvl [13-58 unit/L]35 unit/L (09/07/25 AM)Lymph Auto [14.0-50.0 %]14.8 % (09/07/25 AM)RBC [4.3-5.9 E12/L]5.0 E12/L (09/07/25 AM)RDW [10.9-14.2 %]17.4 % *HI* (09/07/25 AM)Sodium Lvl [135-145 mmol/L]135 mmol/L (09/07/25 AM)Total Protein [6.0-7.8 gm/dL]9.0 gm/dL *HI* (09/07/25 AM)MCH [27.0-34.0 pg]22.0 pg *LOW* (09/07/25 AM)MCHC [31.4-36.0 gm/dL]32.2 gm/dL (09/07/25 AM)MCV [80.0-100.0 fL]68.3 fL *LOW* (09/07/25 AM)Yell Auto [4.0-14.0 %]3.7 % *LOW* (09/07/25 AM)MPV [6.4-10.8 fL]7.2 fL (09/07/25: AM)Neutro Auto [36.0-75.0 %]81.1 % *HI* (09/07/25 AM)UA pH [5.0-9.0]6.5 *NA* (09/07/25: AM)BUN [5-21 mg/dL]9 mg/dL (12/16/25 11:28 AM)Calcium Lvl [8.9-11.1 mg/dL]9.6 mg/dL (09/07/25 11:28 AM)Platelet [150.0-500.0 E9/L]441.0 E9/L (09/07/25 11:28 AM)Potassium Lvl [3.5-5.3 mmol/L]3.6 mmol/L (09/07/25 11:28 AM)UA Spec Grav [1.005-1.030]1.013 *NA* (09/07/25 11:28 AM)WBC [4.0-11.0 E9/L]7.1 E9/L2 (09/07/25 11:28 AM)Chloride [101-111 mmol/L]102 mmol/L (09/07/25 11: AM)Bili Indirect [0.1-0.9 mg/dL]0.2 mg/dL (09/07/25 11:28 AM)Yell Absolute [0.2-1.0 E9/L]0.3 E9/L (09/07/25 11:28 AM)Eos Absolute [0.0-0.5 E9/L]0.0 E9/L (09/07/25 11:28 AM)Basophil Absolute [0.0-0.2 E9/L]0.0 E9/L (09/07/25 11:28 AM)Neutro Absolute [2.0-7.5 E9/L]5.8 E9/L (09/07/25 11:28 AM)Lymph Absolute [1.0-4.0 E9/L]1.0 E9/L (09/07/25 11:28 AM)eGFR [>=59 mL/min/1.73 m2]124 mL/min/1.73 m2 (09/07/25 11:28 AM)Globulin [1.4-4.0 gm/dL]4.8 gm/dL *HI* (09/07/25 11:28 AM)Creatinine [0.5-1.3 mg/dL]0.6 mg/dL (09/07/25 11:28 AM) 1Interpretive Data: Microscopic readings are only performed on those samples that meet specific criteria set forth by [facility]. 2Result Comment: Peripheral smear review performed. Vital Signs Most recent to oldest [Reference Range]:12Temperature Oral [35.8-37.3 DegC]36.8 DegC (09/07/25 11:14 AM)Peripheral Pulse Rate [60-100 bpm]90 bpm (09/07/25 11:14 AM)Heart Rate Monitored [60-100 bpm]72 bpm (09/07/25 12:00 PM)Respiratory Rate [14-20 br/min]14 br/min (09/07/25 12:00 PM)16 br/min (09/07/25 11:14 AM)Blood Pressure [89-139/59-89 mmHg]113/64mmHg (09/07/25 12:00 PM)121/78mmHg (09/07/25 11:14 AM)Mean Arterial Pressure, Cuff80 mmHg (09/07/25 12:00 PM)Hourly RoundingOther: wants pain medshayder aware (09/07/25 12:33 PM)Other: samanta pat at bedside answering clal light (09/07/25 12:00 PM)SpO2 [89 %]97 % (09/07/25 12:00 PM)100 % (09/07/25 11:14 AM) Social History Social History TypeResponseSmoking StatusFormer smoker, quit more than 30 days ago;Never; Type: Cigarettes entered on: 12/23/24Birth SexFemaleSex Representation [address] [place] [address] Discharge Instructions Patient Education 09/07/2025 13:14:38 Abdominal Pain, Adult Abdominal Pain, Adult Pain [...] these instructions at home: Medicines ??? Take vfxq-zcl-aufpvqn and prescription medicines only as told by [...] constipated or have diarrhea for more than 2???3 days. ??? You are not hungry, or you lose weight without trying. ??? You have signs of dehydration. These may include: ??? Dark pee, very little pee, or no pee. ??? Cracked lips or dry mouth. ??? Sleepiness or weakness. ??? You have pain [...] provider. Document Revised: 06/26/2023 Document Reviewed: 06/26/2023 [employer] Patient Education ?? 2023 [employer] Follow Up Care 09/07/2025 11:12:00 With:BRISSA TAMAYO Address: [address] [place] [phone] Business (1) When:09/10/2025 12:36:38 Patient Care team information Care Team Personnel Name: Lorraine Basilio Member Role: [employer]: Claims Followup Rep (Daksha) Name: Marleen Metcalf Position: [employer]: Claims Followup Rep (Correctional Lieutenant) Member Role: [employer]: Claims Followup Rep (Daksha) Name: BRISSA TAMAYO CNP Member Role: Primary Care Physician Address: [address] [place] [address] Telecom: Name: NIDA JOHNSTON MD Position: FT Physician Member Role: [facility] ATTENDANT Physician Address: [address] [facility] [address]- Telecom: Care Team Related Persons Name: RASHI CISSE Name: RASHI CISSE Name: RASHI CISSE Name: RASHI CISSE Name: THADDEUS JENSEN Name: THADDEUS JENSEN Name: CORKY JENSEN Insurance Providers Guarantor name[facility] Plan Information #: 1 Payer: Medicaid Payer Identifier: [id number] Member Number: [id number] Group Number: [id number] Subscriber Identifier: [id number] Relationship to Subscriber: Self/Patient Coverage Type: Medicaid Coverage Verification Date: 25 Telecom: [phone] Address: [address]
--- OUTSIDE RECORDS SUMMARY | 2025-09-09 15:43 | XMS_ITS | Encounter Summary ---
Author Organization Jerzy Hensley [facility] Address [address], [address] [place] [address] Care Team Providers Care Imagery Analyst Name Role Phone Unavailable Primary Care Provider Unavailabl e Reason for Visit * ReasonCommentsAbdominal PainMid lower abdomen and rectum. Ileostomy in place. Denies N/V Pain worse this morning. Encounter Details DateTypeDepartmentCare Team (Latest Contact Info)Ioismwgmcpo90/18/2025 3:43 PM EST - 09/09/2025 7:11 PM [facility] [address] [place] [address] Anoop Dobson MD [address] [place] [address] Generalized abdominal pain (Primary Dx); Perirectal abscess; Left against medical advice Discharge Disposition: Home or Self Care Social History Tobacco UseTypesPacks/DayYears UsedDateSmoking Tobacco: FormerCigarettes0.52 01/23/2017 - 01/23/2019Smokeless Tobacco: NeverAlcohol UseStandard Drinks/Week CommentsNever0 (1 standard drink = 0.6 oz pure alcohol)AUDIT-CAnswerDate RecordedQ1: How often do you have a drink containing alcohol?Never12/25/2024Q2: How many drinks containing alcohol do you have on a typical day when you are drinking?Patient does not drink12/25/2024Q3: How often do you have six or more drinks on one occasion?Never12/25/2024UDIT-CAnswerDate RecordedQ1: How often do you have a drink containing alcohol?Never09/09/2025Q2: How many drinks containing alcohol do you have on a typical day when you are drinking?Patient does not drink09/09/2025Q3: How often do you have six or more drinks on one occasion?Never09/09/2025Interpersonal Safety Domain Source: IP Abuse Screening AnswerDate RecordedPhysical ucvuuUuzfuv30/18/2025Verbal ieampMfkwuk44/18/2025 Emotional ivgenHxlxhv54/18/2025Financial xxzedZslocb94/18/2025Sexual abuseDenies 09/09/2025CommentsNoSex and Gender InformationValueDate RecordedSex Assigned at BirthNot on fileLegal IdkYizkbs06/10/2013 11:45 AM ESTGender IdentityNot on fileSexual OrientationNot on filedocumented as of this encounter Last Filed Vital Signs Vital SignReadingTime TakenCommentsBlood Zdcticub986/8409/09/2025 3:44 PM EST Tzmgo902409/09/2025 3:44 PM BWCNlqqxkocbob43.5 ??C (97.7 ??F)09/09/2025 3:43 PM ESTRespiratory Kner973111/10/2024 5:50 PM ESTOxygen Lfwuhelulj70%09/09/2025 3:44 PM ESTInhaled Oxygen Concentration--Vgyeoa82 kg (165 lb 6.4 oz)09/09/2025 3:44 PM VMSLxjzeu371.6 cm (5' 6 )09/09/2025 3:44 PM ESTBody Mass Index26.7111/10/2024 3:44 PM ESTdocumented in this encounter Functional Status * Audit-CQuestionAnswerDate of AssessmentAuthorAUDIT-C Cyuyk80711/10/2024 3:47 PM Briana Mason RNQ1: How often do you have a drink containing alcohol?Never 09/09/2025 3:47 PM Briana Mason RNQ2: How many drinks containing alcohol do you have on a typical day when you are drinking?Patient does not drink 09/09/2025 3:47 PM Briana Mason, SHAHBAZQ3: How often do you have six or more drinks on one occasion?Never09/09/2025 3:47 PM Briana Mason RN documented as of this encounter Discharge Instructions * Attachments The following attachments cannot be sent through Care Everywhere. * Perirectal Abscess ([place] Islander) documented in this encounter Medications at Time of Discharge MedicationSigDispense QuantityRefillsLast FilledStart DateEnd Date busPIRone (BUSPAR) 10 MG tablet Take 1 tablet by mouth 3 times daily05/18/2024 levETIRAcetam (KEPPRA) 500 MG tablet Take 1 tablet by mouth 2 times daily12/15/2024 acetaminophen (TYLENOL) 500 MG tablet Take 2 tablets by mouth every 6 hours12/18/2024 promethazine (PHENERGAN) 25 MG tablet Take 1 tablet by mouth every 6 hours as needed for Nausea dicyclomine (BENTYL) 20 MG tablet Take 1 tablet by mouth every 6 hours as needed (abd pain) 10 tablet 12/24/2022 ondansetron (ZOFRAN ODT) 4 MG disintegrating tablet Take 1 tablet by mouth every 4 hours as needed for Nausea or Vomiting 15 tablet ondansetron (ZOFRAN ODT) 4 MG disintegrating tablet Take 1 tablet by mouth every 8 hours as needed for Nausea or Vomiting 10 tablet 08/10/2020 ustekinumab (STELARA) 45 MG/0.5ML SOLN injection Inject 45 mg into the skin Every 2 months HYDROcodone-acetaminophen (NORCO) 5-325 MG per tablet Indications:Perirectal abscess,Left against medical adviceTake 1 tablet by mouth every 6 hours as needed for Pain for up to 3 days. Intended supply: 3 days. Take lowest dose possible to manage pain Max Daily Amount: 4 tablets 12 tablet documented as of this encounter Plan of Treatment Not on file documented as of this encounter Procedures Procedure NamePriorityDate/TimeAssociated DiagnosisCommentsCT ABDOMEN PELVIS W IV URJFWHYTNUMH40/18/2025 4:42 PM EST CBC WITH AUTO WFFLBNTRHITPINMD53/18/2025 4:04 PM EST COMPREHENSIVE METABOLIC FDEZFBEAZ65/18/2025 4:04 PM EST documented in this encounter Results * CT ABDOMEN PELVIS W IV CONTRAST Additional Contrast? None (09/09/2025 4:42 PM EST)Anatomical RegionLateralityModalityAbdomen, Pelvis, HipComputed Tomography Specimen (Source)Anatomical Location / LateralityCollection Method / Volume Collection TimeReceived Time09/09/2025 5:28 PM EST Impressions 09/09/2025 5:28 PM EST IMPRESSION: Findings concerning for possible perirectal abscess measuring 3.0 x 0.9 cm. Clinical correlation recommended. There is no fat plane between the rectum and the vagina. There are significant infiltrative changes throughout the fat surrounding this location. ??Findings are nonspecific, but can be seen in the setting of rectovaginal fistula. ?? Clinical correlation is recommended. Small bowel loops are mildly distended and partially fluid-filled. ??Findings can be seen in the setting of enteritis. Narrative 09/09/2025 5:[address] ABDOMEN AND PELVIS TECHNICAL: Contiguous axial imaging from the lung bases through pelvis after the uneventful intravenous administration of contrast. Additional coronal and sagittal reformatted imaging was performed. MIPS 436 - CT Dose Reduction Techniques Radiation Dose Reduction: This exam was performed according to the departmental dose optimization program which includes automated exposure control, adjustment of the mA and/or kV according to the patient size and/or use of iterative reconstruction technique. Contrast Pharmaceutical: Iodinated Contrast Route of administration: Intravenous Enteric contrast: None CLINICAL INFORMATION: Abdominal pain COMPARISON: 12/24/2022 FINDINGS: Lung bases: The lung bases are clear. Liver: Unremarkable. Gallbladder/Biliary: Gallbladder is normal. ??No biliary ductal dilatation. Pancreas: Unremarkable. No ductal dilatation. Spleen: Unremarkable. Kidneys: Unremarkable. ??No hydronephrosis. Adrenal glands: Unremarkable. GI tract: Stomach is nondistended. Small bowel loops are mildly distended and partially fluid-filled. ??Proximal and mid colon unremarkable. ??Right lower quadrant stoma. ??Postoperative changes in the region of the rectum. ??There is questionable small perirectal abscess measuring 3.0 x 0.9 cm. ??There are infiltrative changes in this location. ??There is no fat plane between the rectum and the vagina. Findings concerning for possible fistula. ??Infiltrative changes seen throughout the presacral space which is new from the prior study. ??Appendix is not identified. Lymph nodes: No lymphadenopathy. Vasculature: Nonaneurysmal abdominal aorta. Free fluid: None present. Pelvic viscera: The urinary bladder is mostly decompressed but otherwise unremarkable. Body wall: Unremarkable. Bones: No acute abnormality. Procedure Note Ted Vidales, DO - 09/09/2025 CT ABDOMEN AND PELVIS TECHNICAL: Contiguous axial imaging from the lung bases through pelvisafter the uneventful intravenous administration of contrast. Additional coronaland sagittal reformatted imaging was performed. MIPS 436 - CT Dose Reduction Techniques Radiation Dose Reduction: This exam was performed according to the departmental dose optimization program which includes automated exposure control, adjustment of the mA and/or kV according to the patient sizeand/or use of iterative reconstruction technique. Contrast Pharmaceutical: Iodinated Contrast Route of administration: Intravenous Enteric contrast: None CLINICAL INFORMATION: Abdominal pain COMPARISON: 12/24/2022 FINDINGS: Lung bases: The lung bases are clear. Liver: Unremarkable. Gallbladder/Biliary: Gallbladder is normal. No biliary ductaldilatation. Pancreas: Unremarkable. No ductal dilatation. Spleen: Unremarkable. Kidneys: Unremarkable. No hydronephrosis. Adrenal glands: Unremarkable. GI tract: Stomach is nondistended. Small bowel loops are mildly distended and partially fluid-filled. Proximal and mid colon unremarkable. Right lower quadrant stoma. Postoperative changes in the region of the rectum. There is questionable small perirectal abscess measuring 3.0 x 0.9 cm. There are infiltrative changes in this location. There is no fat plane between the rectum and the vagina. Findings concerning for possible fistula. Infiltrative changes seen throughout the presacral space which is new from the prior study. Appendix is not identified. Lymph nodes: No lymphadenopathy. Vasculature: Nonaneurysmal abdominal aorta. Free fluid: None present. Pelvic viscera: The urinary bladder is mostly decompressed but otherwise unremarkable. Body wall: Unremarkable. Bones: No acute abnormality. IMPRESSION: IMPRESSION: Findings concerning for possible perirectal abscess measuring 3.0 x 0.9cm. Clinical correlation recommended. There is no fat plane between the rectum and the vagina. There aresignificant infiltrative changes throughout the fat surrounding this location.Findings are nonspecific, but can be seen in the setting of rectovaginal fistula. Clinical correlation is recommended. Small bowel loops are mildly distended and partially fluid-filled.Findings can be seen in the setting of enteritis. Authorizing ProviderResult TypeResult StatusJames Bronson MDIMG CT ORDERABLESFinal Result * (ABNORMAL) Comprehensive Metabolic Panel (09/09/2025 4:04 PM EST)Component ValueRef RangeTest MethodAnalysis TimePerformed AtPathologist SignatureSodium 642235 - 144 mmol/L111/10/2024 4:04 PM [facility] LABPotassium3.8 3.7 - 5.3 mmol/L111/10/2024 4:04 PM [facility] NZHXyojieev6292 - 107 mmol/L111/10/2024 4:04 PM [facility] FKJBV41812 - 31 mmol/L 09/09/2025 4:04 PM [facility] LABAnion Eqo111 - 17 mmol/L 09/09/2025 4:04 PM [facility] AYFDllnelv424(H)70 - 99 mg/dL 09/09/2025 4:04 PM [facility] TFDOZR759 - 20 mg/dL09/09/2025 4:04 PM [facility] LABCreatinine0.70.5 - 0.9 mg/dL09/09/2025 4:04 PM [facility] LABEst, Glom Filt Rate>90>60 mL/min/1.80d50309/09/2025 4:04 PM [facility] LABComment: ? These results are not intended for use in patients <18 years of age. ? eGFR results are calculated without a race factor using the 2020 CKD-EPI equation. Careful clinical correlation is recommended, particularly when comparing to results calculated using previous equations. The CKD-EPI equation is less accurate in patients with extremes of muscle mass, extra-renal metabolism of creatine, excessive creatine ingestion, or following therapy that affects renal tubular secretion. Calcium8.88.6 - 10.4 mg/dL09/09/2025 4:04 PM [facility] LABTotal Protein8.8(H)6.4 - 8.3 g/dL09/09/2025 4:04 PM [facility] LABAlbumin 4.23.5 - 5.2 g/dL09/09/2025 4:04 PM [facility] LABAlbumin/Globulin Ratio0.9(L)1.0 - 2.512/ 4:04 PM [facility] LABTotal Bilirubin0.30.3 - 1.2 mg/dL09/09/2025 4:04 PM [facility] Alkaline Vlmlbpapirp217(H)35 - 104 U/L111/10/2024 4:04 PM [facility] [employer] [facility] PKEXTV473 - 33 U/L111/10/2024 4:04 PM [facility] IFHWVZ57<32 U/L 09/09/2025 4:04 PM [facility] LABSpecimen (Source)Anatomical Location / LateralityCollection Method / VolumeCollection TimeReceived TimeBLOOD SPECIMEN / Tpshqha5109/09/2025 4:04 PM EST09/09/2025 4:05 PM EST Narrative Authorizing ProviderResult TypeResult StatusJames Bronson MDCHEMISTRY ORDERABLES Final ResultPerforming OrganizationAddressCity/State/ZIP CodePhone Number [facility] [address] [place] [address], [facility] [phone] * (ABNORMAL) CBC with Auto Differential (09/09/2025 4:04 PM EST)ComponentValue Ref RangeTest MethodAnalysis TimePerformed AtPathologist SignatureWBC7.83.5 - 11.0 k/uL09/09/2025 4:04 PM [facility] [employer] [place] LABRBC5.22(H)4.00 - 5.20 m/uL09/09/2025 4:04 PM [facility] [employer] [place] WVODfequwmsne62.5(L)12.0 - 16.0 g/dL09/09/2025 4:04 PM [facility] JPAVvimlzrhft84.836.0 - 46.0 % 09/09/2025 4:04 PM [facility] FAWMYV74.4(L)80.0 - 100.0 fL 09/09/2025 4:04 PM [facility] HDIFIG50.0(L)26.0 - 34.0 pg 09/09/2025 4:04 PM [facility] BHTDGJI55.4(L)31.0 - 37.0 g/dL 09/09/2025 4:04 PM [employer] [facility] AUJNVR52.9(H)12.1 - 15.2 % 09/09/2025 4:04 PM [employer] [facility] CWSBnciylqor238(H)140 - 450 k/uL 09/09/2025 4:04 PM [employer] [facility] LABMPV8.56.0 - 12.0 fL09/09/2025 4:04 PM [facility] LABNeutrophils %76(H)47 - 75 %09/09/2025 4:04 PM [employer] [facility] LABLymphocytes %1615 - 40 %09/09/2025 4:04 PM [employer] [facility] LABMonocytes %84 - 8 %09/09/2025 4:04 PM [employer] [facility] LABEosinophils %00 - 5 %09/09/2025 4:04 PM [facility] Basophils %00 - 2 %09/09/2025 4:04 PM [facility] LABImmature Granulocytes %00 - 5 %09/09/2025 4:04 PM [facility] Neutrophils Absolute5.912.5 - 7.0 k/uL09/09/2025 4:04 PM [facility] LABLymphocytes Absolute1.231.00 - 4.80 k/uL09/09/2025 4:04 PM [employer] [facility] LABMonocytes Absolute0.610.00 - 1.00 k/uL09/09/2025 4:04 PM [employer] [facility] LABEosinophils Absolute0.030.00 - 0.40 k/uL 09/09/2025 4:04 PM [facility] LABBasophils Absolute0.020.00 - 0.20 k/uL09/09/2025 4:04 PM [facility] LABImmature Granulocytes Absolute0.010.00 - 0.30 k/uL09/09/2025 4:04 PM [facility] MorphologySLIGHT KDNCXYABBJFB66/18/2025 4:04 PM [facility] Specimen (Source)Anatomical Location / LateralityCollection Method / Volume Collection TimeReceived TimeBLOOD SPECIMEN / Yaysbro2709/09/2025 4:04 PM EST 09/09/2025 4:05 PM EST Narrative Authorizing ProviderResult TypeResult StatusAnoop Dobson MDHEMATOLOGY ORDERABLES Final ResultPerforming OrganizationAddressCity/State/ZIP CodePhone Number [facility] [address] [place] [address], [facility] [phone] documented in this encounter Visit Diagnoses Diagnosis Generalized abdominal pain- Primary Abdominal pain, generalized Perirectal abscess Abscess of anal and rectal regions Left against medical advice Surgical or other procedure not carried out because of patient's decision documented in this encounter Administered Medications Medication OrderMAR ActionAction DateDoseRateSite fentaNYL (SUBLIMAZE) injection 25 mcg 25 mcg, IntraVENous, ONCE, 1 dose, On Umu 09/09/25 at 1615, If oral and IV narcotics ordered, use oral first and only use IV if oral is ineffective or cannot take oral. Do Not give oral and IV within1 hour of each other unless specifically ordered. Given09/09/2025 4:08 PM EST25 mcg fentaNYL (SUBLIMAZE) injection 50 mcg 50 mcg, IntraVENous, ONCE, 1 dose, On Umu 09/09/25 at 1745, If oral and IV narcotics ordered, use oral first and only use IV if oral is ineffective or cannot take oral. Do Not give oral and IV within1 hour of each other unless specifically ordered. Given09/09/2025 5:50 PM EST50 mcg iopamidol (ISOVUE-370) 76 % injection 75 mL 75 mL, IntraVENous, IMG ONCE PRN, 1 dose, Starting on Umu 09/09/25 at 1620, Until Umu 09/09/25 at 1643, Other Given09/09/2025 4:43 PM EST75 mLs LORazepam (ATIVAN) injection 1 mg 1 mg, IntraVENous, ONCE, 1 dose, On Umu 09/09/25 at 1815, Immediately prior to intravenous use, lorazepam Injection must be diluted with at least an equal volume of compatible solution (NS or D5W). Given09/09/2025 6:07 PM EST1 mg ondansetron (ZOFRAN) injection 4 mg 4 mg, IntraVENous, ONCE, 1 dose, On Umu 09/09/25 at 1615 Given09/09/2025 4:08 PM EST4 mg piperacillin-tazobactam (ZOSYN) 3,375 mg in sodium chloride 0.9 % 50 mL IVPB (addEASE) 3,375 mg, IntraVENous, at 100 mL/hr, Administer over 30 Minutes, ONCE, On Umu 09/09/25 at 1830, For1 dose, Use 20mm (GREEN) addEASE Adapter Prep Instructions: Attach medication vial to one 20mm (GREEN) addEASE adapter. Buddy fluid bag with adapter, mix, and administer per order. New Bag09/09/2025 6:39 PM EST3,375 mg100 mL/hr sodium chloride 0.9 % bolus 1,000 mL 1,000 mL (13.3 mL/kg), IntraVENous, at 1,000 mL/hr, Administer over 1 Hours, ONCE, On Umu 09/09/25 at 1615, For 1 dose New Bag09/09/2025 4:07 PM EST1,000 zJc7197 mL/hrdocumented in this encounter Active and Recently Administered Medications Times are shown in EST.Medication Order09/07/20240924// fentaNYL (SUBLIMAZE) injection 25 mcg (COMPLETED) 25 mcg, IntraVENous, ONCE, 1 dose, On Umu 09/09/25 at 1615, If oral and IV narcotics ordered, use oral first and only use IV if oral is ineffective or cannot take oral. Do Not give oral and IV within1 hour of each other unless specifically ordered. * 1608 (Given - Provider: Briana Hamilton RN) fentaNYL (SUBLIMAZE) injection 50 mcg (COMPLETED) 50 mcg, IntraVENous, ONCE, 1 dose, On Umu 09/09/25 at 1745, If oral and IV narcotics ordered, use oral first and only use IV if oral is ineffective or cannot take oral. Do Not give oral and IV within1 hour of each other unless specifically ordered. * 1750 (Given - Provider: Briana Hamilton RN) LORazepam (ATIVAN) injection 1 mg (COMPLETED) 1 mg, IntraVENous, ONCE, 1 dose, On Umu 09/09/25 at 1815, Immediately prior to intravenous use, lorazepam Injection must be diluted with at least an equal volume of compatible solution (NS or D5W). * 1807 (Given - Provider: Briana Hamilton, RN) ondansetron (ZOFRAN) injection 4 mg (COMPLETED) 4 mg, IntraVENous, ONCE, 1 dose, On Umu 09/09/25 at 1615 * 1608 (Given - Provider: Briana Hamilton, RN) piperacillin-tazobactam (ZOSYN) 3,375 mg in sodium chloride 0.9 % 50 mL IVPB (addEASE) (COMPLETED) 3,375 mg, IntraVENous, at 100 mL/hr, Administer over 30 Minutes, ONCE, On Umu 09/09/25 at 1830, For1 dose, Use 20mm (GREEN) addEASE Adapter Prep Instructions: Attach medication vial to one 20mm (GREEN) addEASE adapter. Buddy fluid bag with adapter, mix, and administer per order. * 1839 (New Bag - Provider: Yuliana Calderon, SHAHBAZ) * 1903 (Stopped - Provider: Earnest Khan RN) sodium chloride 0.9 % bolus 1,000 mL (COMPLETED) 1,000 mL (13.3 mL/kg), IntraVENous, at 1,000 mL/hr, Administer over 1 Hours, ONCE, On Umu 09/09/25 at 1615, For 1 dose * 1607 (New Bag - Provider: Briana Hamilton, RN) * 1809 (Stopped - Provider: Briana Hamilton, RN) Medication Order//[id number]/ iopamidol (ISOVUE-370) 76 % injection 75 mL (COMPLETED) 75 mL, IntraVENous, IMG ONCE PRN, 1 dose, Starting on Umu 09/09/25 at 1620, Until Umu 09/09/25 at 1643, Other * 1643 (Given - Provider: Maisha Anton) documented in this encounter
[2025-09-18 18:33] VITALS: BP 130/100; PULSE 104; TEMP 36.8; O2SAT 100; BMI 25.8
[2025-09-18] MEDS: 0.9 % SODIUM CHLORIDE 1,000 ML 1000 ML IV (19:10)
[2025-09-18] MEDS: HYDROMORPHONE HCL 0.5 MG/0.5 ML SYRINGE IV (19:10)
[2025-09-18 19:20] VITALS: BP 104/72; PULSE 88; O2SAT 98
[2025-09-18 19:20] LABS: Hematocrit 36.4 % (36.0-48.0); Hemoglobin 10.9 g/dL (12.0-16.0); Immature Granulocytes Abs Auto 0.01 10^3/uL (0.00-0.03); Immature Granulocytes Pct Auto 0.2 % (0.0-0.5); Lymphocytes Absolute Auto 1.1 10^3/uL (1.2-3.8); Mean Corpuscular HGB Conc 29.9 g/dL (29.9-35.2); Mean Corpuscular Hemoglobin 22.3 pg (26.7-34.0); Mean Corpuscular Volume 74.6 fL (81.0-99.0); Platelet Count 400 10^3/uL (150-450); Red Blood Count 4.88 10^6/uL (4.20-5.40); White Blood Count 6.3 10^3/uL (4.0-11.0)
[2025-09-18] MEDS: METHYLPREDNISOLONE SOD SUCC PF 125 MG/2 ML VIAL IVP (19:32)
[2025-09-18] MEDS: DIPHENHYDRAMINE HCL 50 MG/ML VIAL 25 MG IVP (19:32)
[2025-09-18 19:33] LABS: Alanine Aminotransferase 15 U/L (14-59); Albumin Globulin Ratio 0.7; Albumin Level 3.3 g/dL (3.4-5.0); Alkaline Phosphatase 118 U/L (46-116); Anion Gap 9.3; Aspartate Amino Transferase 12 U/L (15-37); Blood Urea Nitrogen 6.0 mg/dL (7.0-18.0); Calcium 8.8 mg/dL (8.5-10.1); Carbon Dioxide 27.6 mmol/L (21.0-32.0); Chloride 104 mmol/L (98-107); Estimated GFR (African America >60 (>=60 mL/min/1.73m^2); Estimated GFR (Non-African Ame >60 (>=60 mL/min/1.73m^2); Globulin 4.9 g/dL; Glucose 95 mg/dL (74-106); Potassium 3.9 mmol/L (3.5-5.1); Sodium 137 mmol/L (136-145); Total Protein 8.2 g/dL (6.4-8.2)
--- OUTSIDE RECORDS SUMMARY | 2025-09-18 19:41 | XMS_ITS | Clinical Summary ---
Author Organization [facility] Address [address] [place] [id number] Care Team Providers Care Electrical/Instrument Technician Name Role Phone Karlos Lin MD Unavailable Janie García CNP Primary Care Provider [phone] Allergies Active AllergyReactionsCriticalityNoted DateCommentsHydromorphoneItching 05/26/2023 Medications MedicationSigDispense QuantityRefillsLast FilledStart DateEnd DateStatus vedolizumab (ENTYVIO PEN) 108 mg/0.68 mL pen Indications: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)Inject 108 mg (1 pen) subcutaneously every other week. 2 Each 10:25 AM EDT4Active vedolizumab (ENTYVIO PEN) 108 mg/0.68 mL pen Indications:Crohn's disease of colon with complication (HCC),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)Inject 108mg (1 pen) subcutaneously every other week. 1.36 mL 4Active dicyclomine HCl (BENTYL ORAL) 5Active KEPPRA 250 mg tablet Take 500 mg by mouth.5Active ondansetron orally disintegrating (ZOFRAN ODT) 4 mg disintegrating tablet take 1 tablet by mouth every 8 hours as needed for nausea and vomitingActive promethazine (PHENERGAN) 25 mg tablet Take 25 mg by mouth.5Active busPIRone (BUSPAR) 10 mg tablet 4Active metroNIDAZOLE (FLAGYL) 500 mg tablet Indications:Anal fistulaTake 1 tablet by mouth three times a day. Take 1 tablet at 6pm, 7pm, and 11pm, the evening prior tosurgery. 3 tablet 12/04/2024tive neomycin 500 mg tablet Indications:Anal fistulaTake 2 tablets by mouth as directed. Take 2 tablet at 6pm, 7pm, and 11pm the evening prior to surgery. 6 tablet 12/04/2024tive busPIRone (BUSPAR) 10 mg tablet Take 10 mg by mouth three times a day.5Active levETIRAcetam (KEPPRA) 500 mg tablet Take 500 mg by mouth two times a day.12/15/2024tive Magnesium 200 mg tab Take 200 mg by mouth once daily.Active acetaminophen (TYLENOL) 500 mg tablet Take 2 tablets by mouth every 6 hours. 50 tablet 12/18/2024 5:51 PM EDT12/18/2024tive methocarbamol (ROBAXIN) 500 mg tablet Take 1 tablet by mouth every 12 hours as needed. 10 tablet 01/14/2025 9:36 AM EDT01/14/2025tive Bacillus coagulan-calcium carb (DIGESTIVE ADVANTAGE PROBIOTIC) 2 billion cell- 140 mg cap Take 1 capsule by mouth once daily. 30 capsule 01/14/2025 9:36 AM EDT01/14/2025tive gabapentin (NEURONTIN) 100 mg capsule Take 100 mg by mouth daily at bedtime.01/21/2025tive Active Problems ProblemNoted DateDiagnosed DatePost-op pain01/10/2025rohn disease of colon and rpgutx3601/08/20259047Zwsjju56/03/2025 Assessment & Plan (12/24/2024 7:54 AM EDT): Assessment: Chronic d/t Chron's CBC with iron studies ordered today Has had blood transfusion in the past ~ 5 years ago Hemoglobin (g/dL) Date Value 12/18/2024 8.6 12/17/2024 10.4 01/19/2024 10.2 01/24/2021 12.9 01/21/2021 12.1 12/22/2020 12.3 Crohn's colitis, unspecified byyfcfxgzsqd19/27/2025Generalized seizures 11/22/2024 Overview (12/24/2024): Was sedated and intubated the morning of November after having 5 seizures in row. MRI showed foggy spot on brain. Neurologist isn?t sure why I had them. Will have repeat scans in few weeks to seeif spot is gone. Assessment & Plan (12/24/2024 8:28 AM EDT): Assessment: New onset in the beginning of November She reports having 5 grand mal seizures Magnesium was found to be very low- replaced in hospital and started on oral as tolerated Was taken to ED intubated for airway protection Started on Keppra 500 mg BID No seizures since starting medication Saw Neurology Magdalene Cruz on 12/15- Aware she is having procedure [...] was started on Keppra 500mg PO BID. Generalized abdominal pain4Crohn's disease of colon with fistula 01/18/2024 Assessment & Plan (01/18/2024 5:55 AM EDT): Presents from home with worsening abdominal pain, cramping, increased output from ileostomy x 2 days. Hx/o Crohns and not currently on medication/treatment plan. Has been on Humira and Stellara previously. S/p C section 10/24/23. Has seen [facility] but not since 03/05/2023 and most recently [...] team /GI for further recs Ileostomy in place01/18/2024 Assessment & Plan (12/24/2024 8:25 AM EDT): Assessment: Ileostomy in place Following with GI Upcoming procedure Assessment & Plan (01/18/2024 5:55 AM EDT): See above ABLA (acute blood loss anemia)10/25/2023 Overview (10/27/2023): Hgb 10.9 > QBL 602 cc > 8.5 - Asymptomatic - VSS - Lost IV access , declined new IV placement for IV iron Assessment/Plan: - asymptomatic acute blood loss anemia from operative blood loss - Continue PNV and PO iron BID care following wilgffkz25/01/2024Maternal Crohn's disease 10/24/2023Ileostomy wyunibgx80/01/2024Maternal iron deficiency anemia complicating , third rpqlyclac70/22/2023Impaired intestinal absorption 09/13/2023rohn's disease of large intestine without ltrmiiarklvj27/29/2023 Crohn's disease of small and large intestines with iqmjndfqoksz81/28/2023Anxiety and sqauuhbanf57/12/2023 Overview (10/27/2023): Well Controlled??previously??on??Zoloft 50mg daily PO?? - not currently on medication Denies any current s/s, SI/HI, and reports bonding well with baby Plan: - educated on depression/anxiety, when to contact provider vs seek care in ED Assessment & Plan (12/24/2024 8:27 AM EDT): Assessment: Controlled with buspirone Assessment & Plan (07/08/2023 9:38 AM EDT): Currently managed on Zoloft Imaging of gastrointestinal tract adoqzlxm50/15/2023 Overview (02/04/2023): MRE and MR pelvis IMPRESSION: Possible mild inflammatory change of the terminal ileum, distal to the ileostomy. ??Otherwise, no active inflammatory small bowel Crohn's disease. Probable mild inflammatory changes of the mid to distal descending colon. Persistent active perianal disease, similar to prior CT although improved from prior MRI. ??No perianal abscess. Crohn's disease of colon with mgxbzaymbuhg85/27/2023 Overview (02/04/2023): -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 She was treated with PDN, ADA from [phone], lost response due to development of AB, UST from [id number] lost insurance and was not on medications. Developed nella anal disease and underwent loop ileostomy in 2018. No medications since then. Recent discharge from hospital01/08-01/21 for abdominal pain, bleeding and stool per rectum. Underwent MRE and MRI pelvis, ileoscopy and colonoscopy which shows active inflammation involving small and large intestine. +inflammationin the nella anal fistula tract. Started on IVCS and now on PO prednisone taper Assessment & Plan (02/04/2023 9:29 AM EDT): -Continue with PDN taper -Consult nutrition, IBD psychologist Dr. French and pharmacist Dr. Ulrich for medication teaching and HCM -Plan to start patient on combination treatment IFX+AZA after discussing risks and benefits -Follow up with [facility] next week Follow up in 4 weeks History of creation of rteuem4601/22/20210339Bzkdlbleasq45/21/2018Severe protein- calorie zuxfyxpetnte64/20/2018Perineal gyxwzaa0409/09/2018 Overview (09/11/2018): Added automatically from request for surgery [id number] Assessment & Plan (12/24/2024 8:27 AM EDT): Assessment: s/p seton placement 12/18/2024 Oxycodone as needed for pain Upcoming procedure Assessment & Plan (07/08/2023 9:39 AM EDT): Seton drain Plan primary , patient considering BS for contraception Colorectal follow up scheduled Resolved Problems ProblemNoted DateDiagnosed DateResolved DateRubella non-immune status, delivered, current lugglmscxtalzbt87 Overview (10/27/2023): VIS provided by [facility] MMR??desired on discharge day Non-reassuring status, delivered, current dkeqoyryqcmgpwu67/01/2024 10/27/2023Unwanted qyzhnjihe58 Overview (10/27/2023): Desired permanent surgical contraception. Now s/p bilateral salpingectomy at the time of pCB. - Medicaid consent singed 08/01/2023. Signed in OR after procedure 10/24/2023. Anemia during in third unrukivgn04Maternal Crohn's disease affecting in third ndxlwkmos02 Overview (09/05/2023): Followed by Dr. Rojas Plan serial growth scans. Plan primary c/s 29 weeks gestation of nkpnwnone84/bdominal pain08/19/2023 10/27/2023General counseling and advice for contraceptive dslgkiaoyy43/09/2023 10/24/2023 Overview (08/01/2023): Salpingectomy. Medicaid consent signed 08/01 25 weeks gestation of zloirytqt51/bdominal pain affecting alohqthrp29Obesity, Class I, BMI 30-34.908// weeks gestation of ztewwwhsq52/08/2023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 hizupxxqi66/09/2023 Assessment & Plan (07/08/2023 9:41 AM EDT): Diagnosed in 2014 Loop ileostomy in 2018 [...] considering testing if symptoms of flare third trimester(NSTs) - delivery for perianal disease, has colorectal appointment scheduled to confirm plan History of zeopjvlqr15/08/2023 Overview (02/04/2023): 01/18/23: Moderate to severe inflammed mucosa was [...] in the setting of healed up colitis. Obesity, Class II, BMI 35-39.91/11/2024 Assessment & Plan (07/08/2023 9:38 AM EDT): BMI 31 kg/m2 Recommended TWG 11-20lbs Tnpuvjoupoxsgd07 Assessment & Plan (09/11/2018 10:11 AM EST): Assessment: PLAN: Replete if <1.7 Yppyabldnfld93 Assessment & Plan (09/11/2018 10:10 AM EST): Assessment: PLAN: Replete if <136 Abdominal pain Assessment & Plan (09/12/2018 4:02 PM EST): Assessment: PLAN: Cdiff PCR +, Iv and [...] No skilled HHC needs at this time. Assessment & Plan (09/11/2018 10:18 AM EST): Assessment: PLAN: Cdiff PCR +, Iv and PO antibiotics antibiotics Continue anxiolytics and analgesics Consult to behavioral medicine and psychiatry Would like to take to OR for Diverting loop ileosostomy, seton drain placement EUA today Replace Elytes as needed Encourage OOb and ambulation and IS No skilled HHC needs at this time. Crohn's qjapuat17 Overview (09/12/2018): Added automatically from request for surgery [id number] Crohn's disease (regional enteritis) Overview (08/22/2018): Added automatically from request for surgery [id number] Immunizations ImmunizationAdministration DatesNext DueCOVID-19 original vaccine, age 12+ yr, monovalent (PFIZER-BIONTECH - PURPLE TOP)02/08/2021,01/18/2021iphtheria tetanus pertussis (DTaP) vaccine, unspecified pdzovrlnolu25/21/2001influenza (IIV4) vaccine, age 6 mo - 64 yr, quadrivalent (AFLURIA, FLULAVAL, FLUZONE)07/04/2023 influenza vaccine, whole virus08/12/2015measles mumps rubella (MMR) vaccine (M-M-R II, PRIORIX)10/27/2023,11/13/2000poliovirus (IPV) vaccine, inactivated (IPOL)11/13/2000poliovirus vaccine, unspecified brgaxaqrwfr83/21/2001respiratory syncytial virus (RSV) vaccine, bivalent (ABRYSVO)09/19/2023tetanus diphtheria pertussis (Tdap) vaccine, age 7+ yr (ADACEL, BOOSTRIX)09/19/2023,02/05/2015 varicella (EVGENY) vaccine (VARIVAX)07/09/2001 Family History Medical HistoryRelationCommentsHodgkin LymphomaMotherNON hodgkinColon Cancer OtherDifficulty with anesthesiaNo Family HistoryRelationStatusCommentsMother OtherAlive Social History Tobacco UseTypesPacks/DayYears UsedDateSmoking Tobacco: FormerCigarettes Smokeless Tobacco: Never Tobacco Cessation:Counseling Given: Not Answered Comments:3 per day Alcohol UseStandard Drinks/WeekCommentsNot Currently0 (1 standard drink = 0.6 oz pure alcohol)1 per weekAHC UtilitiesAnswerDate RecordedIn the past 12 months has the Coffee and Power, [employer], oil, or water [employer] threatened to shut off services in your home?No01/12/2025PHQ-2AnswerDate RecordedPHQ2 Ytxta43811/11/2017Hunger Vital Sign AnswerDate RecordedWithin the past 12 months, you worried that your food would run out before you got the money to buymore.Never true04/22/2025Within the past 12 months, the food you bought just didn't last and you didn't have money to get more.Never true01/12/2025PRAPARE - TransportationAnswerDate RecordedIn the past 12 months, has lack of transportation kept you from medical appointments or from getting medications?No01/12/2025In the past 12 months, has lack of transportation kept you from meetings, work, or from getting things needed for daily living?No01/12/2025Housing Stability Vital SignAnswerDate RecordedIn the last 12 months, was there a time when you were not able to pay the mortgage or rent on time?No01/12/2025In the past 12 months, how many times have you moved where you were living?t any time in the past 12 months, were you homeless or living in a jail (including now)?No01/12/2025rea Deprivation IndexAnswerDate RecordedNational Score (1-100), lower number is lower risk87 07/04/2023State Score (1-10), lower number is lower otlp5883Data from: https://www.neighborhoodatlas.medicine.[facility].edu/. Last address used for fqwujfdrijy[address] [facility]07/04/2023CommentsUnknownSex and Gender InformationValueDate RecordedSex Assigned at UokzdXgzgif77/29/2021 2:21 PM EDT Legal VkxZogrzi56/23/2014 2:06 PM EDTGender YaodypupAvyvss39/29/2021 2:21 PM EDT Sexual OrientationChoose not to beaihlcp06/29/2021 2:21 PM EDT Last Filed Vital Signs Vital SignReadingTime TakenCommentsBlood Qnjeeyex874/6605 8:57 AM EDT Ddxzl730402/19/2025 8:57 AM ITJSbslpltzwmr52.7 ??C (98 ??F)02/19/2025 8:57 AM EDT Respiratory Vpan8454 8:00 AM EDTOxygen Cjyirkynvb44%01/14/2025 8:00 AM EDTInhaled Oxygen Concentration--Rjnxzy69 kg (123 lb 7.3 oz)02/19/2025 8:57 AM QKAYpgdyr514.6 cm (5' 6 )01/08/2025 8:13 PM EDTBody Mass Index19.9301/08/2025 8:13 PM EDT Plan of Treatment Health MaintenanceDue DateLast DoneCommentsHepatitis B Vaccine (1 of 3 - 19+ 3- dose series)2014Cervical Cancer Osllcqjgr01/10/2016HPV Vaccine (1 - 3-dose SCDM series)2Covid-19 Vaccine (3 - 2024- season)505/, 01/18/2021Influenza Vaccine (#1)/08/2023, 08/12/2015DTaP,Tdap,Td Vaccine (4 - Td or Tdap)3111/20/2022, 02/05/2015, 11/13/2000HIV BzfsborfdOqeskbqwy69/13/2023Hepatitis C GbgfqaypgJhugnxqrp86/27/2024, 07/05/2023, 01/20/2023 Procedures Procedure NamePriorityDate/TimeAssociated DiagnosisCommentsPT ED PATIENT PQVJGNWSWHZ26/01/2025 HEPATITIS C ANTIBODY IA WITH EEWQAWZADDWLSgacsiy80/27/2024 8:08 PM EDT HIV 1/2 COMBO WITH REFLEX TO EQWSQJWKGXWTEUQMvjembv75/13/2023 10:02 AM EDT care, subsequent , second trimester from Last 3 Months or Most Recently Relevant to Health Maintenance Results * PT ED PATIENT INFORMATION (06/23/2025)Specimen (Source)Anatomical Location / LateralityCollection Method / VolumeCollection TimeReceived Time06/23/2025 Narrative [facility] - 07/24/2025 Provider MIKKI your patient ROLA AGUILAR has not started their Dickson program, time has . Dickson program: PATIENT SAFETY INSTRUCTIONS FOR HEALTHCARE SETTINGS Authorizing ProviderResult TypeResult StatusJeruthie Rios MD, PhDEMMIFinal ResultPerforming OrganizationAddressCity/State/ZIP CodePhone Number [facility] * HEPATITIS C ANTIBODY IA WITH CONFIRMATION (01/18/2024 8:08 PM EDT)Component ValueRef RangeTest MethodAnalysis TimePerformed AtPathologist SignatureHep C Antibody IUYbxhirshAwrjeyxi45/28/2024 9:49 AM EDSOUTHVIEW MEDICAL CENTER LABComment:The result suggests no evidence of active infection with Hepatitis C virus. Should recent infectionbe suspected, repeat testing may be considered 4-6 weeks after this draw.Specimen (Source)Anatomical Location / Laterality Collection Method / VolumeCollection TimeReceived TimeBloodBLOOD SPECIMEN / UnknownVenipuncture / Njmftsh2501/18/2024 8:08 PM EDT01/18/2024 8:56 PM EDT Narrative Authorizing ProviderResult TypeResult StatusNatalie Prince ROSARION.[facility] LABORATORYFinal ResultPerforming OrganizationAddressCity/State/ZIP CodePhone Number [facility] [address] * HIV 1 2 COMBO(AG/AB),WITH REFLEX TO DIFFERENTIATION (07/05/2023 10:02 AM EDT) ComponentValueRef RangeTest MethodAnalysis TimePerformed AtPathologist SignatureHIV 12 Combo (Ag/Ab)FdvwzucqokwMkwjoiiygis53/13/2023 8:03 PM EDT [facility] LABHIV-1/2 AB (Confirmatory)07/05/2023 8:03 PM [facility] LABComment:Test not indicated.HIV Ujhsybxeudwefs95/13/2023 8:03 PM [facility] LABComment: No evidence of HIV-1 or HIV-2 infection. Should recent infection be suspected, repeat testing may be considered 2-3 weeks after this draw. [place] Rev. Code 3701.243(E): This information has been disclosed to you from confidential records protected from disclosure by state law. ??You shall make no further disclosure of this information without the specific, written, and informed release of the individual to whom it pertains or as otherwise permitted by state law. A general authorization for the release of medical or other information is not sufficient for the purpose of the release of HIV test results or diagnoses. Specimen (Source)Anatomical Location / LateralityCollection Method / Volume Collection TimeReceived TimeBloodBLOOD SPECIMEN / UnknownVenipuncture / Unknown 07/05/2023 10:02 AM EDT1 10:02 AM EDT Narrative Authorizing ProviderResult TypeResult StatusNae Costa MDLABORATORYFinal ResultPerforming OrganizationAddressCity/State/ZIP CodePhone Number [facility] [address] [place] [address], from Last 3 Months or Most Recently Relevant to Health Maintenance Insurance Advance Directives * Full Code (Latest Code Status on File) Date ActivatedDate InactivatedComments01/18/2024 5:38 AM01/20/2024 9:24 PMQuestion AnswerCommentsFull Code Order Discussed With:* Patient * Full Code Date ActivatedDate InactivatedComments04/30/2023 11:51 PM05/02/2023 6:03 PMQuestion AnswerCommentsFull Code Order Discussed With:* Patient * Full Code Date ActivatedDate InactivatedComments01/17/2023 1:26 AM5 8:19 PMQuestion AnswerCommentsFull Code Order Discussed With:* Patient Care Teams Team MemberRelationshipSpecialtyStart DateEnd Date Janie García CNP [address] [facility] [place] [address] PCP - GeneralFamily Medicine01/12/25 Karlos Lin MD Gastroenterology01/15/17
--- OUTSIDE RECORDS SUMMARY | 2025-09-18 19:41 | XMS_ITS | Patient Health Record ---
Author Organization [facility] Address [address] [place] [address] Care Team Providers Care Shoulder Puncher Name Role Phone Mounika Maguire Primary Care Provider Kendall Blank Unavailable [phone] Janie Lu Unavailable [phone] Allergies No Known Allergies Reason For Referral No Information Medications Medication SIG (Take, Route, Frequency, Duration) Notes Start Date End Date Status Gabapentin 300 MG Capsule 1 capsule Orally 3 renata es a day; Duration: 30 days ActiveDULoxetine HCl 20 MG Capsule Delayed Release Particles1 capsule Orally Once a day; Duration: 30 days5ActiveOndansetron 4 MG Tablet DisintegratingTAKE 1 TABLET BY MOUTH EVERY 8 HOURS NEEDED FOR NAUSEA AND VOMITING Oral; Duration: 4 YwpjBfaaoyYzeukshcx23/07/2025ActivePromethazine HCl 25 MG Tablet1 tablet as needed Oral every 12 hrs; Duration: 14 daysActive Propranolol HCl 10 MG Tablet 1 tablet Orally twice a day; Duration: 30 days As needed 5ActiveclonazePAM 0.5 MG Tablet 1 tablet Orally twice a day; Duration: 30 days As needed 5ActivebusPIRone HCl 10 MG TabletOral; Duration: 30 DaysNot-Taking/PRN Social History Tobacco Use: Social History Observation Description Date Details (start date - stop date) Never Smoker NA - NA Sex Assigned At : Social History Observation Description Sex Assigned At Female Social History Drug/Alcohol:Social InfoQuestionAnswerNotesAUDIT-C (Standard)Did you have a drink containing alcohol in the past year?KhIpdqdl4HiinejkxzlbqzaAkcvcnmcHjqotwt Use:Social InfoQuestionAnswerNotesTobacco Control (Standard)Tobacco use: Nonsmoker Problems Problem Type SNOMED Code ICD Code Onset Dates Problem Status W/U Status Risk Notes Problem Generalized anxiety disorder (24089817) A nxiety, generalized (F41.1) Activeconfirmed Vital Signs Heart Rate 107 /min 06/10/2025 Qqdzikgoliz12.4 degrees Thyysqpvzu28/10/0311Ttaaazyv98 %06/10/2025lood pressure folwwcqwq89 mm Hg06/10/20253101Ofvkho91 in06/10/2025lood pressure vzlxvawz63 mm Hg 06/10/20256076Bghcrn964.2 lbs06/10/2025BMI26.02 kg/m206/10/2025 Encounters Encounter Location Date Provider Diagnosis [address] [place] [address] 09/13/2025 Blank [place] Anxiety, generalized F41.1 [address] [place] [address] 03/02/2025 Mounika Ting Anxiety, generalized F41.1 [facility] [address] [place] [address] 03/08/2025 Mounika Ting Anxiety, generalized F41.1 [address] [place] [address] 04/30/2025 Mounika Ting Anxiety, generalized F41.1 [facility] [address] [place] [address] 05/13/2025 Mounika Ting Anxiety, generalized F41.1 [address] [place] [address] 05/13/2025 Mounika Ting Anxiety, generalized F41.1 [facility] [address] [place] [address] 05/17/2025 Mounika Ting Anxiety, generalized F41.1 [address] [place] [address] 05/27/2025 Mounika Ting Anxiety, generalized F41.1 [facility] [address] [place] [address] 08/03/2025 Mounika Ting Anxiety, generalized F41.1 [facility] [address] [place] [address] 08/09/2025 Mounika Ting Anxiety, generalized F41.1 [address] [facility] [place] [address] 12/31/2024 Janie Lu Crohn's disease of colon with abscess K50.114 and Status post incision and drainage Z98.890 [address] [facility] [address] 08/16/2025 Mounika Ting Anxiety, generalized F41.1 and Nausea and vomiting, unspecified vomiting type R11.2 [address] [place] [address] 01/27/2025 Mounika Ting Anxiety, generalized F41.1 [address] [place] [address] 04/15/2025 Mounika Ting Anxiety, generalized F41.1 [address] [place] [address] 06/10/2025 Mounika Ting Anxiety, generalized F41.1 Assessments Encounter Date Diagnosis (ICD Code) Assessment Notes Treatment Notes Treatment Clinical Notes Section Notes 01/27/2025 Anxiety, generalized (ICD-10 - F 41.1) Will start patient on *Duloxetine, Propraolol and Klonopin today. Discussed risks and side effects of medication including possible nausea, headache, upset stomach, diarrhea, constipation, anxiety, irritability, and sexual dysfunction. Most mild side effects improve over 4-6 weeks of use. Please monitor for worsening of symptoms, especially suicidal ideations or morbid thoughts, and call office and or go to the emergency department immediately if this occurs. Patient verbalized understanding, in agreement with plan.03/02/2025nxiety, generalized (ICD-10 - F41.1)03/08/2025nxiety, generalized (ICD-10 - F41.1) 04/15/2025nxiety, generalized (ICD-10 - F41.1) refilled Clonzepam refilled Propranolol to take BID increased Gabapetin to BID refilled Duloxetine Anxiety stable. Will continue current medication. F/U 2 months & PRN 05/13/2025nxiety, generalized (ICD-10 - F41.1)05/13/2025nxiety, generalized (ICD-10 - F41.1)05/27/2025nxiety, generalized (ICD-10 - F41.1)06/10/2025 Anxiety, generalized (ICD-10 - F41.1) will trial increasing daytime Gabapentin dose to 300mg BID continue Gabapetin 100mg at bedtime refilled clonozepam 0.5mg BID anxiety is stable f/u in 1 montn virtual and PRN 08/03/2025nxiety, generalized (ICD-10 - F41.1)08/16/2025nxiety, generalized (ICD-10 - F41.1) Anxiety stable. Will continue current medication. will increase Gabapentin 300mg TID stopped Gabapentin 100mg QHS f/u in 2 months and PRN 09/13/2025nxiety, generalized (ICD-10 - F41.1)08/09/2025nxiety, generalized (ICD-10 - F41.1)05/17/2025nxiety, generalized (ICD-10 - F41.1)04/30/2025 Anxiety, generalized (ICD-10 - F41.1)12/31/2024Status post incision and drainage (ICD-10 - Z98.890)Patient labs are trending down12/31/2024rohn's disease of colon with abscess (ICD-10 - K50.114)Patient has scheduled procedure next week to help fix her ongoing issues. She will have planned admission. Pain medication bridged until appt with oiuoqre6408/16/2025Nausea and vomiting, unspecified vomiting type (ICD-10 - R11.2) bridge script for nausea and vomiting f/u with PCP to continue medication 12/31/2024OtherBody Mass Index: Care Instructions material was printed Plan Of Treatment Next Appt Details Provider Name:Madelin hodgson, 09/21/2025 02:30:00 PM, [address] [place] [address], [phone], Insurance Providers Payer Name Payer Address Payer Phone Subscriber Number Group Number Insured Name Patient Relationship to Insured Coverage Start Date Coverage End Date [employer] [place] Medicaid [address] [place] [phone] [id number] SHENYENI TYREEMary Grace - patient is the insured Wrap [facility] [address] [place] [id number], TYREEDevynstephanie - patient is the [id number] 2025[facility] MedicaidPO [address] [place] [address] [phone]e - patient is the [id number] 2024 2025Wrap [facility] CareSourcePO [address] [place] [phone] [id number], TYREEDevynstephanie - patient is the [id number] 2024 5BH [employer] U[employer] [place] MedicaidPO [address] [place] [address] [phone], KRDevynstephanie - patient is the insured 2025 Medical (General) History Medical History History ICD Code Chrons disease Generalized Seizure DisorderBipolarSevere Anxiety due to Medical Condition Generalized Anxiety DisorderSurgical History Surgery Date(Month/Year) illeostomy 2024 fistulaIleostomy revision w/liiypbwfy45/2025Hospitalization History Reason Date(Month/Year) [facility] x 6 days 12/2024 see above
--- OUTSIDE RECORDS SUMMARY | 2025-09-18 19:41 | XMS_ITS | Clinical Summary ---
Author Organization [facility] Address [address] [place] [address] Phone Care Team Providers Care Title Curative Specialist Name Role Phone Mingo Rendon MD Primary Care Provider Unavail able Social History Tobacco UseTypesPacks/DayYears UsedDateSmoking Tobacco: Never Assessed CommentsUnknownSex and Gender InformationValueDate RecordedSex Assigned at Not on fileLegal QpsUskmsa58/25/2022 8:55 AM ESTGender IdentityNot on fileSexual OrientationNot on file Plan of Treatment Health MaintenanceDue DateLast DoneCommentsBone Density Scan1995HIV Ocsrbfhsd1995Lipid Panel1995TB Test1995Vitamin B-12110/02/1994 Vitamin V58-ZH7108/02/1995Yearly Adult Nhxbotqd1995Hepatitis B Surface Wrtwrzdw72/10/1996MMR Vaccines (1 of 1 - Standard series)1996Hepatitis C Umtiazjtl77/10/2013Hepatitis B Vaccines (1 of 3 - 19+ 3-dose series)2014 Cervical Cancer Fflrrrned29/10/2016HPV/Mmezvg3108/02/2016Pap Smear2016 DTaP/Tdap/Td Vaccines (1 - Tdap)2017HPV Vaccines (1 - 3-dose standard series)2COVID-19 Vaccine (1 - 2024- season)2025Influenza Vaccine (#1)2025Zoster Vaccines (1 of 2)2045HIB VaccinesAged OutNo longer eligible based on patient's age to complete this topicHepatitis A VaccinesAged OutNo longer eligible based on patient's age to complete this topic IPV VaccinesAged OutNo longer eligible based on patient's age to complete this topicMeningococcal VaccineAged OutNo longer eligible based on patient's age to complete this topicPneumococcal Vaccine: Pediatrics and At-Risk Adult Patients Aged OutNo longer eligible based on patient's age to complete this topic Rotavirus VaccinesAged OutNo longer eligible based on patient's age to complete this topic Care Teams Team MemberRelationshipSpecialtyStart DateEnd Date Mingo Rendon MD Office Address Unavailable as of 03/23/2011 PCP - General06/02/23
--- OUTSIDE RECORDS SUMMARY | 2025-09-18 19:41 | XMS_ITS | Clinical Summary ---
Author Organization [facility] Address [address] [place] [address] Care Team Providers Care Salvage Diver Name Role Phone Magdalene Cruz Unavailable Allergies Active AllergyReactionsCriticalityNoted DateCommentsHydromorphoneItching 05/26/2023 Medications MedicationSigDispense QuantityRefillsLast FilledStart DateEnd DateStatus busPIRone (Buspar) 10 MG tablet Take 10 mg by mouth in the morning and 10 mg before bedtime.4Active Magnesium 100 MG capsule Take 200 mg by mouth DailyActive levETIRAcetam (Keppra) 500 MG tablet Indications:Seizure (HCC)Take 1 tablet (500 mg) by mouth in the morning and 1 tablet (500 mg) before bedtime. 60 tablet 5Active diazePAM (Valium) 5 MG tablet Indications:Seizure (HCC)Take 1 tablet (5 mg) by mouth 1 time for 1 dose Take 30 minutes prior to MRI, must have a entry driver operator 1 tablet 5Active gabapentin (Neurontin) 100 MG capsule Indications:RLS (restless legs syndrome),Lumbar back pain,Pain in both lower extremities,ParesthesiaTAKE 1 CAPSULE BY MOUTH AT BEDTIME 30 capsule 5Active Family History Medical HistoryRelationNameCommentsADD / ADHDBrotherBrandonADD / ADHDMaternal GrandmotherSusanADD / ADHDMotherShellyADD / ADHDMother's SisterBridgettAnxiety disorderMother's SisterBridgettADD / ADHDPaternal GrandmotherEllaStrokePaternal GrandmotherEllaRelationNameStatusCommentsBrotherBrandonMaternal GrandmotherSusan MotherShellyMother's SisterBridgettPaternal GrandmotherElla Social History Tobacco UseTypesPacks/DayYears UsedDateSmoking Tobacco: FormerCigarettes0.33 Smokeless Tobacco: NeverAlcohol UseStandard Drinks/WeekCommentsNot Currently0 (1 standard drink = 0.6 oz pure alcohol)CommentsUnknownSex and Gender InformationValueDate RecordedSex Assigned at BirthNot on fileLegal SexFemale 11/25/2024 1:49 PM ESTGender IdentityNot on fileSexual OrientationNot on file Last Filed Vital Signs Vital SignReadingTime TakenCommentsBlood Qanujjbw463/70001/21/2025 3:53 PM EDT Hlfxv34559/01/2025 3:53 PM EDTTemperature--Respiratory Wdhs830801/21/2025 3:53 PM EDTOxygen Ddofuxlaby42%01/21/2025 3:53 PM EDTInhaled Oxygen Concentration-- Qaunou15.4 kg (109 lb)01/21/2025 3:53 PM VGBEovloz037.6 cm (5' 6 )01/21/2025 3:53 PM EDTBody Mass Index17.59001/21/2025 3:53 PM EDT Plan of Treatment Health MaintenanceDue DateLast DoneCommentsPap Smear2016Influenza Vaccine (#1)51, 08/12/2015Cervical Cancer Koxcjyvzx75/10/2025 HPV/Bcsniv1108/02/2025Pneumococcal Vaccine: Pediatrics (0 to 5 Years) and At-Risk Patients (6 to 64 Years)Aged OutNo longer eligible based on patient's age to complete this topic Care Teams Team MemberRelationshipSpecialtyStart DateEnd Date Magdalene Cruz PA Physician AssistantNeurology12/15/24
--- OUTSIDE RECORDS SUMMARY | 2025-09-18 19:41 | XMS_ITS | Encounter Summary ---
Author Organization [facility] Address [address], [address] [place] [address] Care Team Providers Care Mash Tub Cooker Operator Name Role Phone Unavailable Primary Care Provider Unavailabl e Encounter Details DateTypeDepartmentCare Team (Latest Contact Info)Tytpkqouhlr25/18/2025Travel Social History Tobacco UseTypesPacks/DayYears UsedDateSmoking Tobacco: FormerCigarettes0.52 [...] Domain Source: IP Abuse Screening AnswerDate RecordedPhysical krscxKishfk89/18/2025Verbal jmmctRgcsci81/18/2025 Emotional lmnerPjvhqi22/18/2025Financial qcqamJpznzk55/18/2025Sexual abuseDenies 09/09/2025CommentsNoSex and Gender InformationValueDate RecordedSex Assigned at BirthNot on fileLegal SfwAwfhah69/10/2013 11:45 AM ESTGender IdentityNot on fileSexual OrientationNot on filedocumented as of this encounter Plan of Treatment Not on file documented as of this encounter Visit Diagnoses Not on filedocumented in this encounter
--- OUTSIDE RECORDS SUMMARY | 2025-09-18 19:41 | XMS_ITS | Clinical Summary ---
Author Organization [facility] Address [address], [address] [place] [address] Care Team Providers Care Air Defense Artillery Officer Name Role Phone Unavailable Primary Care Provider Unavailabl e Allergies Active AllergyReactionsCriticalityNoted DateCommentsHydromorphoneHives,Itching 05/24/2023 Other Reaction(s): Unknown Bfmtbx0909/09/2025 Other Reaction(s): Bleeding Medications MedicationSigDispense QuantityRefillsLast FilledStart DateEnd DateStatus ustekinumab (STELARA) 45 MG/0.5ML SOLN injection Inject 45 mg into the skin Every 2 monthsActive ondansetron (ZOFRAN ODT) 4 MG disintegrating tablet Take 1 tablet by mouth every 8 hours as needed for Nausea or Vomiting 10 tablet 08/10/2020Active Additional Information Patient not taking.Reported on 12/25/2024 ondansetron (ZOFRAN ODT) 4 MG disintegrating tablet Take 1 tablet by mouth every 4 hours as needed for Nausea or Vomiting 15 tablet ctive Additional Information Patient not taking.Reported on 12/25/2024 dicyclomine (BENTYL) 20 MG tablet Take 1 tablet by mouth every 6 hours as needed (abd pain) 10 tablet 3Active Additional Information Patient not taking.Reported on 12/25/2024 busPIRone (BUSPAR) 10 MG tablet Take 1 tablet by mouth 3 times daily4Active levETIRAcetam (KEPPRA) 500 MG tablet Take 1 tablet by mouth 2 times daily5Active acetaminophen (TYLENOL) 500 MG tablet Take 2 tablets by mouth every 6 hours5Active promethazine (PHENERGAN) 25 MG tablet Take 1 tablet by mouth every 6 hours as needed for NauseaActive HYDROcodone-acetaminophen (NORCO) 5-325 MG per tablet Indications:Perirectal abscess,Left against medical adviceTake 1 tablet by mouth every 6 hours as needed for Pain for up to 3 days. Intended supply: 3 days. Take lowest dose possible to manage pain Max Daily Amount: 4 tablets 12 tablet Expired Active Problems ProblemNoted DateDiagnosed DateColitis, ckwoznyjdbfhx91/22/2016 Encounters DateTypeDepartmentCare JqnxUbvbugpkhza86/18/2025 3:43 PM EST - 09/09/2025 7:11 PM [facility] [address] [place] [address] Anoop Dobson MD Generalized abdominal pain (Primary Dx); Perirectal abscess; Left against medical advice Discharge Disposition: Home or Self Care09/09/2025Travelfrom Last 3 Months Social History Tobacco UseTypesPacks/DayYears UsedDateSmoking Tobacco: FormerCigarettes0.52 01/23/2017 - 01/23/2019Smokeless Tobacco: Never Tobacco Cessation:Counseling Given: Not Answered Alcohol UseStandard Drinks/WeekCommentsNever0 (1 standard drink = 0.6 oz pure [...] one occasion?Never09/09/2025Interpersonal Safety Domain Source: IP Abuse ScreeningAnswerDate RecordedPhysical rdmjvPabsgw80/18/2025Verbal abuse Qcmkyu2209/09/2025Emotional hdehtSfgdbg11/18/2025Financial iyrfcAazuxn79/18/2025 Sexual fudogPrjqjw87/18/2025CommentsNoSex and Gender InformationValue Date RecordedSex Assigned at BirthNot on fileLegal MwiMwyktx24/10/2013 11:45 AM ESTGender IdentityNot on fileSexual OrientationNot on file Last Filed Vital Signs Vital SignReadingTime TakenCommentsBlood Zvlnicib389/8409/09/2025 3:44 PM EST Ysbam768609/09/2025 3:44 PM BVGDlhbsboeloj94.5 ??C (97.7 ??F)09/09/2025 3:43 PM ESTRespiratory Jeqh218411/10/2024 5:50 PM ESTOxygen Fbakbbcdiv08%09/09/2025 3:44 PM ESTInhaled Oxygen Concentration--Yutqys89 kg (165 lb 6.4 oz)09/09/2025 3:44 PM SPZJiartq701.6 cm (5' 6 )09/09/2025 3:44 PM ESTBody Mass Index26.7111/10/2024 3:44 PM EST Plan of Treatment Health MaintenanceDue DateLast DoneCommentsPolio vaccine (2 of 3 - 4-dose series)Varicella vaccine (2 of 2 - 2-dose childhood series) Depression Bdzpus3308/02/2007HIV tkfepk8808/02/2010Hepatitis C jebypd4008/02/2013Hepatitis B vaccine (1 of 3 - 19+ 3-dose series)2014Pap smear2016Flu vaccine (#1)/08/2023, 08/12/2015COVID-19 Vaccine ( season)/, 1Cervical cancer screen 2025HPV (without or with Pap)2025DTaP/Tdap/Td vaccine (4 - Td or Tdap)3111/20/2022, 02/05/2015, 11/13/2000HPV vaccine (No Doses Required) CompletedHepatitis A vaccineAged OutNo longer eligible based on patient's age to complete this topicHib vaccineAged OutNo longer eligible based on patient's age to complete this topicMeningococcal (ACWY) vaccineAged OutNo longer eligible based on patient's age to complete this topicMeningococcal B vaccineAged OutNo longer eligible based on patient's age to complete this topicPneumococcal 0-49 years VaccineAged OutNo longer eligible based on patient's age to complete this topic Procedures Procedure NamePriorityDate/TimeAssociated DiagnosisCommentsCT ABDOMEN PELVIS W IV GHTAPMWJIJMK90/18/2025 4:42 PM EST COMPREHENSIVE METABOLIC KPXEWWGOC62/18/2025 4:04 PM EST CBC WITH AUTO SABYQPJLJADDGGPB51/18/2025 4:04 PM EST from Last 3 Months Results * CT ABDOMEN PELVIS W IV [...] of enteritis. Authorizing ProviderResult TypeResult StatusJames Bronson [facility] ORDERABLESFinal Result * (ABNORMAL) CBC with Auto Differential (09/09/2025 4:04 PM EST)ComponentValue Ref RangeTest MethodAnalysis TimePerformed AtPathologist SignatureWBC7.83.5 - 11.0 k/uL09/09/2025 4:04 PM [facility] LABRBC5.22(H)4.00 - 5.20 m/uL09/09/2025 4:04 PM [facility] EINYmwgbzvckx16.5(L)12.0 - 16.0 g/dL09/09/2025 4:04 PM [facility] FQOEotbboknzm63.836.0 - 46.0 % 09/09/2025 4:04 PM [facility] VMEGHG97.4(L)80.0 - 100.0 fL 09/09/2025 4:04 PM [facility] BUFQBN85.0(L)26.0 - 34.0 pg 09/09/2025 4:04 PM [facility] XHOYSNB81.4(L)31.0 - 37.0 g/dL 09/09/2025 4:04 PM ESTCartera Commerce [facility]ICE DSCPSQ04.9(H)12.1 - 15.2 % 09/09/2025 4:04 PM ESTCartera Commerce [facility] UAYZhfmdxlwi154(H)140 - 450 k/uL 09/09/2025 4:04 PM ESTCartera Commerce [facility] LABMPV8.56.0 - 12.0 fL09/09/2025 4:04 PM ESTKINGMAN REGIONAL MEDICAL CENTERWebspy PATRICE LABNeutrophils %76(H)47 - 75 %09/09/2025 4:04 PM ESTCartera Commerce PATRICE LABLymphocytes %1615 - 40 %09/09/2025 4:04 PM [facility]ICE LABMonocytes %84 - 8 %09/09/2025 4:04 PM ESTCartera Commerce PATRICE LABEosinophils %00 - 5 %09/09/2025 4:04 PM [facility] Basophils %00 - 2 %09/09/2025 4:04 PM ESTKINGMAN REGIONAL [facility] CENTERWebspy PATRICE LABImmature Granulocytes %00 - 5 %09/09/2025 4:04 PM ESTCartera Commerce [facility] LAB Neutrophils Absolute5.912.5 - 7.0 k/uL09/09/2025 4:04 PM ESTCartera Commerce PATRICE LABLymphocytes Absolute1.231.00 - 4.80 k/uL09/09/2025 4:04 PM ESTCartera Commerce PATRICE LABMonocytes Absolute0.610.00 - 1.00 k/uL09/09/2025 4:04 PM [facility] LABEosinophils Absolute0.030.00 - 0.40 k/uL09/09/2025 4:04 PM ESTCartera Commerce PATRICE LABBasophils Absolute0.020.00 - 0.20 k/uL 09/09/2025 4:04 PM ESTCartera Commerce PATRICE LABImmature Granulocytes Absolute 0.010.00 - 0.30 k/uL09/09/2025 4:04 PM ESTCartera Commerce PATRICE LABMorphology SLIGHT KEKKSDIIQCFE97/18/2025 4:04 PM ESTCartera Commerce PATRICE LABSpecimen (Source)Anatomical Location / LateralityCollection Method / VolumeCollection TimeReceived TimeBLOOD SPECIMEN / Oxlyemx2409/09/2025 4:04 PM EST09/09/2025 4:05 PM EST Narrative Authorizing ProviderResult TypeResult StatusAnoop Dobson MDHEMATOLOGY ORDERABLES Final ResultPerforming OrganizationAddressCity/State/ZIP CodePhone Number [facility] [address] [address], [facility] [phone] * (ABNORMAL) Comprehensive Metabolic Panel (09/09/2025 4:04 PM EST)Component ValueRef RangeTest MethodAnalysis TimePerformed AtPathologist SignatureSodium 868037 - 144 mmol/L111/10/2024 4:04 PM ESTCartera Commerce PATRICE LABPotassium3.8 3.7 - 5.3 mmol/L111/10/2024 4:04 PM [facility] QJZSougxdhu1037 - 107 mmol/L111/10/2024 4:04 PM [facility] DGXMD56601 - 31 mmol/L 09/09/2025 4:04 PM [facility] LABAnion Hrp391 - 17 mmol/L 09/09/2025 4:04 PM [facility] IFDKssfrte871(H)70 - 99 mg/dL 09/09/2025 4:04 PM [facility] XSWCQU032 - 20 mg/dL09/09/2025 4:04 PM [facility] LABCreatinine0.70.5 - 0.9 mg/dL09/09/2025 4:04 PM [facility] LABEst, Glom Filt Rate>90>60 mL/min/1.59z16209/09/2025 4:04 PM [facility] LABComment: ? These results are not intended [...] secretion. Calcium8.88.6 - 10.4 mg/dL09/09/2025 4:04 PM ESTKINGMAN REGIONAL MEDICAL CENTERWebspy PATRICE LABTotal Protein8.8(H)6.4 - 8.3 g/dL09/09/2025 4:04 PM ESTMERWebspy PATRICE LABAlbumin 4.23.5 - 5.2 g/dL09/09/2025 4:04 PM [facility] PATRICE LABAlbumin/Globulin Ratio0.9(L)1.0 - 2. 4:04 PM [facility] PATRICE LABTotal Bilirubin0.30.3 - 1.2 mg/dL09/09/2025 4:04 PM [facility] Alkaline Jctnhuoxpyr273(H)35 - 104 U/L111/10/2024 4:04 PM ESTMERWeb[facility] PAT[facility]ICE NIJKDP517 - 33 U/L111/10/2024 4:04 PM ESTMERWeb[facility] PATRICE KYICDO07<32 U/L 09/09/2025 4:04 PM ESTKINGMAN REGIONAL MEDICAL CENTERWebspy PATRICE LABSpecimen (Source)Anatomical Location / LateralityCollection Method / VolumeCollection TimeReceived TimeBLOOD SPECIMEN / Zbcoacl7309/09/2025 4:04 PM EST09/09/2025 4:05 PM EST Narrative Authorizing ProviderResult TypeResult StatusJames Bronson MDCHEMISTRY ORDERABLES Final ResultPerforming OrganizationAddressCity/State/ZIP CodePhone Number [facility] [address] [place] [address], [facility] [phone] from Last 3 Months Insurance Advance Directives * Full Code (Latest Code Status on File) Date ActivatedDate InactivatedComments03/14/2016 2:42 AM03/15/2016 10:29 AM
[2025-09-18 19:46] LABS: Glucose Urine UA NEGATIVE (NEGATIVE)
[2025-09-18] MEDS: METRONIDAZOLE 250 MG TABLET 500 MG PO (19:57)
[2025-09-18] MEDS: CIPROFLOXACIN HCL 500 MG TABLET PO (19:57)
--- NOTE | 2025-09-18 19:58 | ED_ITS ---
HPI HPI - General Adult General Chief complaint: Skin/Abscess/Foreign Body Stated complaint: CHOLORECTOL SURGERY/ HASN'T HEALED Time Seen by Provider: 09/18/25 18:41 Source: patient Mode of arrival: walk-in Limitations: no limitations History of Present Illness HPI narrative: cc - rectal pain Pt was originally seen and examined by Dr Araiza and orders placed, including labs and CT scan of the abdomen pelvis. He signed the patient out to me at shift change Pt with Crohn's presents with 4 day history of worsening rectal pain and drainage. She had colectomy in December and has an ileostomy. She has anorectal pain and drainage from hemorrhoids and rectal fistula/abscess. She has an appointment with her colorectal surgeon in 3 days. No fever or chills. Related Data Home Medications ?Medication ?Instructions ?Recorded ?Confirmed buspirone 10 mg tablet 10 mg PO TID 05/18/24 levetiracetam 500 mg tablet mg PO 12/28/24 clonazepam 0.5 mg tablet mg 04/18/25 gabapentin 100 mg capsule mg 04/18/25 Previous Rx's ?Medication ?Instructions ?Recorded hydrocodone 5 mg-acetaminophen 325 1 tab PO Q6H PRN pa in 5 days #20 04/18/25 mg tablet tabs ciprofloxacin HCl 500 mg tablet 500 mg PO BID #14 tabs 09/18/25 (Cipro) hydrocodone 5 mg-acetaminophen 325 1 tab PO Q6H PRN pa in 3 days #10 09/18/25 mg tablet tabs metronidazole 500 mg tablet 500 mg PO Q8H 7 days #21 t abs 09/18/25 Allergies Allergy/AdvReac Type Severity Reaction Status Date / Time NSAIDS (Non-Steroidal AdvReac Severe Abdominal Verified 04/18/25 13:06 Anti-Inflamma Pain hydromorphone (From Dilaudid) AdvReac Mild itching Verified 09/18/25 18:32 Opioid HPI Opioid Management Most Recent Opioid Data: Last Pain Scale 10 Today, 19:10 Last MAR Pain Assessment Today, 19:10 [facility] History (Updated 09/18/25 @ 19:53 by Tank Cummings) Exacerbation of Crohn's disease ?K50.90 - Crohn's disease, unspecified, without complications (ICD-10) Ileostomy in place ?Z93.2 - Ileostomy status (ICD-10) Social History Smoking status: Never smoker Little interest or pleasure in doing things: not at all Feeling down, depressed, or hopeless: not at all Exam Narrative Exam Narrative: Nurses notes and vital signs reviewed and patient is not hypoxic. afebrile General: Well-appearing and in no apparent distress. Skin: Warm, dry, no pallor noted. Eye: Pupils are equal, round and EOMI. No scleral icterus. Ears, Nose, Mouth, and Throat: Oral mucosa is moist Cardiovascular: Regular Rate and Rhythm without murmur, gallop or rub. Respiratory: No accessory muscle use or respiratory distress. Lungs are clear to auscultation, no wheezing, rales or rhonchi Musculoskeletal: normal ROM GI: Abdomen is soft, non-distended. Normal bowel sounds. No masses appreciated. No tenderness to palpation. No rebound, guarding, or rigidity noted. Neurological: A&O x4. No cranial nerve dysfunction observed. No truncal ataxia. Moves all extremities. Sensation intact. Psychiatric: Cooperative and interactive. Normal mood and affect. Constitutional Vital Signs, click to edit/add: Last Vital Signs Temp 98.2 F 09/18/25 18:33 Pulse 88 09/18/25 19:20 Resp 18 09/18/25 19:20 BP 104/72 09/18/25 19:20 Pulse Ox 98 09/18/25 19:20 O2 Del Method Room Air 09/18/25 18:33 Course Vital Signs Vital signs: Vital Signs Temperature 98.2 F 09/18/25 18:33 Pulse Rate 104 H 09/18/25 18:33 Respiratory Rate 18 09/18/25 18:33 Blood Pressure 130/100 H 09/18/25 18:33 Pulse Oximetry 100 09/18/25 18:33 Oxygen Delivery Method Room Air 09/18/25 18:33 Temperature 98.2 F 09/18/25 18:33 Pulse Rate 88 09/18/25 19:20 Respiratory Rate 18 09/18/25 19:20 Blood Pressure 104/72 09/18/25 19:20 Pulse Oximetry 98 09/18/25 19:20 Oxygen Delivery Method Room Air 09/18/25 18:33 Medical Decision Making MDM Narrative Medical decision making narrative: Patient with history of Crohn's and anal rectal fistula with previous abscess is now complaining of drainage from the rectal area and pain at that site as well. She is not currently on any antibiotics. Blood testing revealed normal white blood cell count and unremarkable basic metabolic profile. Urinalysis revealed large leukocyte esterase positive nitrites. Urine cultures pending. The patient refused CT scanning of the abdomen pelvis - I met with her and she told me that she has undergone dozens of CT scans of the abdomen pelvis and is concerned about getting additional scans. Most of her pain is associated in the perirectal area and lower abdomen and she is more concerned about whether or not she has sepsis or elevated white count then about any bowel obstruction or intra-abdominal abscess. I talked her about her presentation and symptoms -she has no appointment with her colorectal surgeon in a few days. She will be started on antibiotics -Cipro and Flagyl -which will not only cover her acute urinary tract infection but also cover any anorectal infection. Additionally, she will be prescribed medicine to take at home for pain. OARRS was reviewed. She will follow-up with her colorectal surgeon as scheduled Lab Data Lab results reviewed: Yes I reviewed the patient's lab results Labs: Lab Results 09/18/25 09/18/25 Range/Units 18:53 19:12 WBC 6.3 (4.0-11.0) 10^3/uL RBC 4.88 (4.20-5.40) 10^6/uL Hgb 10.9 L (12.0-16.0) g/dL Hct 36.4 (36.0-48.0) % MCV 74.6 L (81.0-99.0) fL MCH 22.3 L (26.7-34.0) pg MCHC 29.9 (29.9-35.2) g/dL RDW 16.7 H (11.0-15.0) % Plt Count 400 (150-450) 10^3/uL MPV 9.3 L (9.5-13.5) fL Neut % (Auto) 72.0 (43.0-75.0) % Lymph % (Auto) 17.5 L (20.5-60.0) % [place]oke % (Auto) 6.8 (1.7-12.0) % Eos % (Auto) 3.0 (0.9-7.0) % Baso % (Auto) 0.5 (0.2-2.0) % Neut # (Auto) 4.5 (1.4-6.5) 10^3/uL Lymph # (Auto) 1.1 L (1.2-3.8) 10^3/uL Brooke # (Auto) 0.4 (0.3-0.8) 10^3/uL Eos # (Auto) 0.2 (0.0-0.7) 10^3/uL Baso # (Auto) 0.0 (0.0-0.1) 10^3/uL Abs Immat Gran (auto) 0.01 (0.00-0.03) 10^3/uL Imm/Tot Granulo (auto) 0.2 (0.0-0.5) % Sodium 137 (136-145) mmol/L Potassium 3.9 (3.5-5.1) mmol/L Chloride 104 (98-107) mmol/L Carbon Dioxide 27.6 (21.0-32.0) mmol/L Anion Gap 9.3 BUN 6.0 L (7.0-18.0) mg/dL Creatinine 0.67 (0.55-1.02) mg/dL Est GFR ( Amer) >60 (>=60 mL/min/1.73m^2) Est GFR (Non-Af Amer) >60 (>=60 mL/min/1.73m^2) BUN/Creatinine Ratio 9.0 Glucose 95 (74-106) mg/dL Calcium 8.8 (8.5-10.1) mg/dL Total Bilirubin 0.1 L (0.2-1.0) mg/dL AST 12 L (15-37) U/L ALT 15 (14-59) U/L Alkaline Phosphatase 118 H (46-116) U/L Total Protein 8.2 (6.4-8.2) g/dL Albumin 3.3 L (3.4-5.0) g/dL Globulin 4.9 g/dL Albumin/Globulin Ratio 0.7 Serum HCG, Qual Negative (NEGATIVE) Urine Color Lt. yellow (YELLOW) Urine Clarity Cloudy A (CLEAR) Urine pH 6.0 (5.0-9.0) Ur Specific [place] 1.015 (1.005-1.025) Urine Protein Negative (NEG/TRACE) mg/dL Urine Glucose (UA) Negative (NEGATIVE) mg/dL Urine Ketones Negative (NEGATIVE) mg/dL Urine Occult Blood Small A (NEGATIVE) Urine Nitrite Positive A (NEGATIVE) Urine Bilirubin Negative (NEGATIVE) Urine Urobilinogen 0.2 (0.2-1.0) EU/dL Ur Leukocyte Esterase Large A (NEGATIVE) Discharge Plan Discharge Chief Complaint: Skin/Abscess/Foreign Body Clinical Impression: Exacerbation of Crohn's disease, Abscess, perianal, Anorectal fistula Patient Disposition: Home, Self-Care Time of Disposition Decision: 19:52 Mode of Transportation: Private Vehicle Prescriptions / Home Meds: New ciprofloxacin HCl [Cipro] 500 mg tablet 500 mg PO BID Qty: 14 0RF hydrocodone-acetaminophen 5-325 mg tablet 1 tab PO Q6H PRN (Reason: pain) 3 Days Qty: 10 0RF metronidazole 500 mg tablet 500 mg PO Q8H 7 Days Qty: 21 0RF No Action buspirone 10 mg tablet 10 mg PO TID levetiracetam 500 mg tablet PO clonazepam 0.5 mg tablet gabapentin 100 mg capsule hydrocodone-acetaminophen 5-325 mg tablet 1 tab PO Q6H PRN (Reason: pain) 5 Days Qty: 20 0RF Print Language: Kiswahili Instructions: Crohn Disease (ED), Anorectal Abscess and Anal Fistula (ED), Colectomy Diet (ED) Additional Instructions: Follow up with your Physician as planned Referrals: [facility] [Primary Care Provider] - 1 week
[2025-09-18 20:02] LABS: Cast Seen? NONE SEEN #/LPF (NONE SEEN); Crystals Seen? None Seen #/HPF (None Seen); Urine Culture Indicated YES-FRMC
== END 2025-09-18 20:17 | disposition home or self-care (01) ==
PROVIDERS: Student in an Organized Health Care Education/Training Program; Emergency Provider Emergency Medicine
DX: K50.914 Crohn's disease, unspecified, with abscess (principal); K60.50 Anorectal fistula, unspecified; K62.89 Other specified diseases of anus and rectum
CPT/HCPCS: 36415; 80053; 81001; 84703; 85025; 87086; 96374; 96375; 99285; J1171; J1200; J2405; J2919